=== PATIENT | female | born 1935 | race Caucasian/White ===

== ENCOUNTER 2022-03-31 10:10 | Outpatient (CLI) | payer MEDICARE, OTHER, SELFPAY ==
[2022-03-31 13:39] LABS: Alanine Aminotransferase* 90 U/L (4-35); Alkaline Phosphatase* 93 U/L (40-150); Aspartate Amino Transferase* 56 U/L (12-35); Bilirubin Direct* 0.3 mg/dL (0.0-0.5); Bilirubin Total* 0.4 mg/dL (0.1-1.5); Total Protein* 6.4 g/dL (6.0-8.3)
== END 2022-03-31 10:11 | disposition home or self-care (01) ==
LOC: KYNREF 10:11
PROVIDERS: PCP Nurse Practitioner Family; Visit Provider Nurse Practitioner Family
DX: Z51.81 Encounter for therapeutic drug level monitoring (principal)
CPT/HCPCS: 36415; 80076

== ENCOUNTER 2022-05-06 13:00 | Outpatient (CLI) | payer MEDICARE, OTHER, SELFPAY ==
--- OUTSIDE RECORDS SUMMARY | 2022-05-06 13:05 | XMS_ITS | Encounter Summary ---
:1935 Author Organization [facility] Address [address] [place] [address] Care Team Providers Name Role Phone Dontrell Gallardo MD Primary Care Provider Reason for Visit Reason Onset Date Comments Med Refill 09/05/2021 Encounter Details Date Type Department Care Team Description 09/05/2021 Refill [place] Jelly Kendrick, Allergic rhinitis, [address] unspecified seasonality, [place], [place] [address] unspecified trigger [phone] [place] [address] Social History Tobacco Use Types Packs/Day Years Used Date Never Smoker Smokeless Tobacco: Never Used Alcohol Use Standard Drinks/Week Comments Yes 0 (1 standard drink = 0.6 oz pure alcoho l) Financial Resource Strain Answer Date Recorded How hard is it for you to pay for the very basics like Not h hunter at all 08/10/2020 food, housing, medical care, and heating? Food Insecurity Answer Date Recorded Within the past 12 months, you worried that your food would Never true 08/10/2020 run out before you got money to buy more. Within the past 12 months, the food you bought just didn't N ever true 08/10/2020 last and you didn't have money to get more. Transportation Needs Answer Date Recorded In the past 12 months, has lack of transportation kept you f rom No 08/10/2020 medical appointments or from getting medications? In the past 12 months, has lack of transportation kept you f rom No 08/10/2020 meetings, work, or getting things needed for daily living? Sex Assigned at Date Recorded Not on file documented as of this encounter Miscellaneous Notes Telephone Encounter - Amber Jon RN - 09/05/2021 9:11 AM CST Please review request. SIFIED AD CLERK Telephone Encounter - Tabitha Lombardo LPN - 09/05/2021 9:00 AM CLASSIFIED AD CLERK Last visit in provider department: 03/27/21 Last visit requested medication was discussed: not in the last year Upcoming appointment with provider: Visit date not found Last Rx: 12/05/20 #180 2 refills Requested Prescriptions Pending Prescriptions Disp Refills ? ? fexofenadine-pseudoephedrine (Rochelle-D Allergy & Congestion) 60-120 MG per 12 hr tablet 180tablet 2 Sig: May take ONE tab up to two times a day for nasal congestion as needed Labs: Vitals: BP Readings from Last 2 Encounters: 03/27/21 118/78 02/27/21 128/66 Patient is due for CP appointment. PSR/Nurse: Please contact patient to assist with scheduling. SIFIED AD CLERK documented in this encounter Plan of Treatment Not on filedocumented as of this encounter Visit Diagnoses Diagnosis Allergic rhinitis, unspecified seasonali ty, unspecified trigger documented in this encounter Care Teams Sales Stock Associate Relationship Specialty Start Date End Date Dontrell Gallardo MD PCP - General Family Medicine 01/31/21 [address] [place] [address] documented as of this encounter
--- OUTSIDE RECORDS SUMMARY | 2022-05-06 13:05 | XMS_ITS | Encounter Summary ---
:1935 Author Organization [facility] Address [address] [place] [address] Care Team Providers Name Role Phone None, Pcp Primary Care Provider Unavailable Reason for Referral Consultation (Routine) - Closed Specialty Diagnoses / Procedures Referred By Contact Refer red To Contact Neurology Diagnoses Neuropathy of right lower extremity Prema Mcwilliams APRN, CNP Neurology [address] [place] [address] [place] [address] Fax: Referral ID Status Reason Start Date Expiration Date Visits V isits Requested Authorized [id number] Closed Specialty 11/19/2020 11/19/2021 1 1 Services Required Scheduling Instructions Please call the Neurology [facility] Consultant desk at [phone] to schedule an appointment. GAGE LOAN COUNSELOR Encounter Details Date Type Department Care Team Description 11/15/2020 Telephone [place] Prema Mcwilliams APRN, CNP [address] [place], [place] [address] [place] [address] [phone] (Wo rk) Social History Tobacco Use Types Packs/Day Years [...] Telephone Encounter - Amber Jon RN - 11/19/2020 1:56 PM CST Patient informed. GAGE LOAN COUNSELOR Addendum Note - Prema Mcwilliams APRN, CNP - 11/19/2020 12:02 PM MORTGAGE LOAN COUNSELOR Addended by: PREMA MCWILLIAMS on: 11/19/2020 12:02 PM Modules accepted: Orders GAGE LOAN COUNSELOR Telephone Encounter - Leslie Camilo MD - 11/19/2020 11:58 AM CST Piyush Arciniega, It looks like it's been a few years since she was seen at [facility]. I'd be happy to give things an updated look and see if there is anything else I can add. Just place the consult at your convenience and I'll see her soon!Sincerely, Leslie GAGE LOAN COUNSELOR Telephone Encounter - Amber Jon RN - 11/16/2020 1:41 PM CST Apologies, wrong provider, Prema - the patient would like to know if you'd think this would be beneficial, if so please place Referral. GAGE LOAN COUNSELOR Telephone Encounter - Jelly Kendrick MD - 11/16/2020 1:34 PM CST Call Kathryn and let her know that I would be happy to refer her to one of the neurologist at [facility] for consult and evaluation for her numbness/neuropathy in her leg. If she would like meto do this let me know and I will make the referral. GAGE LOAN COUNSELOR Telephone Encounter - Amber Jon RN - 11/16/2020 1:10 PM CST Patient informed, her abd symptoms aren't bad and she's that for awhile. Her leg pain and numbness is still a concern for her. She feels its mostly the loss of sensation in her feet that worries her. She wonders if it would be beneficial to see a different neurologist possibly at [facility]? GAGE LOAN COUNSELOR Telephone Encounter - Rosa Wells LPN - 11/16/2020 8:59 AM CST [facility] at [phone] GAGE LOAN COUNSELOR Telephone Encounter - Prema Mcwilliams APRN, RECOVERY COACH - 11/15/2020 1:57 PM CST Called patient to discussed recent radiology results from [facility] [place]. Left message to call back. Mammogram: negative. May not need to do further imaging per age recommendation, in future. US liver: fatty liver and small stable cyst seen, gallstones and sludge without cholecystitis. (spleen/pancreas/kidneys overall normal/unchanged). Recommend diet and exercise to help with liver/gallbladder function. staty away from tylenol, liverhurting meds, alcohol etc. We can refer patient to sales correspondent if she likes. Otherwise we have to weigh risk vs benefits at her age; ie if she able to tolerate a gall bladder surgery to get the gall stone out or if she would have more consequences of having a procedure done due to her age. Please see how her Rt leg pain/numbness is doing. Unfortunately [facility] declined the referral. GAGE LOAN COUNSELOR documented in this encounter Plan of Treatment Scheduled Referrals Name Type Priority Associated Order Schedule Diagnoses Ambulatory referral Outpatient Referral Routine Neuropathy of right Ordered: to Neurology lower extremity 11/19/2020 documented as of this encounter Visit Diagnoses Diagnosis Neuropathy of right lower extremity - Pr imary documented in this encounter Care Teams Rod Finisher Relationship Specialty Start Date End Date None, Pcp PCP - General Missionary Coordinator 06/12/20 01/30/21 [address] [place] [address] documented as of this encounter
--- OUTSIDE RECORDS SUMMARY | 2022-05-06 13:05 | XMS_ITS | Clinical Summary ---
:1935 Author Organization [facility] Address [address] [place] [address] Care Team Providers Name Role Phone Dontrell Gallardo MD Primary Care Provider Allergies Active Allergy Reactions Severity Noted Date Comments Gluten Unknown 12/20/2011 H/O Celiac Dise ase Miconazole Nausea And Vomiting 12/10/2013 MICONAZO LE NITRATE Miconazole Nitrate 11/05/2018 Nuts Other (see comments) 10/25/2010 cerner listed no reaction Peanut (Diagnostic) Hives 12/20/2011 Other re action(s): Throat Swelling /Closing Medications Medication Sig Dispensed Refills Start Date End Date Status cycloSPORINE (RESTASIS) Administer 1 0 Active 0.05 % ophthalmic drop into both emulsion eyes 2 (two) times a day ferrous sulfate 325 (65 Take 1 tablet by 0 Active Fe) MG tablet mouth 1 (one) time each day Multiple 0 Active Vitamins-Minerals (MULTIVITAMIN ADULT PO) Cyanocobalamin (VITAMIN Take 1 tablet by 0 Active B 12 PO) mouth 1 (one) time each day calcium citrate-vitamin Take 2 tablets 0 Active D (CITRACAL+D) 315-200 by mouth 1 (one) MG-UNIT per tablet time each day EPINEPHrine (EPIPEN Inject 0.3 mL 0 05/11/2015 Active 2-KRISTIN) 0.3 MG/0.3ML (0.3 mg total) injection into the thigh syringeIndications: if needed for Anaphylaxis anaphylaxis. Call 911 after use. NUT allergy Dorzolamide HCl-Timolol Administer 1 0 10/25/2010 Active Mal PF 22.3-6.8 MG/ML drop into the solution right eye 1 (one) time each day Glaucoma alendronate (FOSAMAX) TAKE 1 TABLET 0 05/28/2020 Active 70 MG tablet EVERY 7 DAYS (WEEKLY) ON AN EMPTY STOMACH, REMAIN UPRIGHT FOR AT LEAST 30 MINUTES meclizine (ANTIVERT) 25 Take 25 mg by 0 01/31/2021 Active MG tablet mouth if needed traMADol (ULTRAM) 50 MG 0 02/23/2021 Active tablet nystatin (MYCOSTATIN) Take one 200 mL 1 03/01/2021 Active 560907 UNIT/ML teaspoon four suspensionIndications: times a day for Thrush up to 10 days for thrush. Swish and the spit out or swallow omeprazole (PriLOSEC) TAKE 1 CAPSULE 90 capsule 1 05/07/[address] DAILY capsuleIndications: Gastroesophageal reflux disease fluticasone (FLONASE) USE 2 SPRAYS 48 g 4 05/23/2021 Active 50 MCG/ACT nasal each Nostril sprayIndications: DAILY Allergic rhinitis, unspecified seasonality, unspecified trigger fexofenadine-pseudoephe May take ONE tab 180 tablet 2 09/05/20 21 Active drine (Rochelle-D up to two times Allergy & Congestion) a day for nasal 60-120 MG per 12 hr congestion as tabletIndications: needed Allergic rhinitis, unspecified seasonality, unspecified trigger Active Problems Problem Noted Date Neuropathy of right lower extremity 11/02/2020 Fungal infection of toenail 11/01/2020 Benign paroxysmal positional vertigo 05/13/2019 Last Assessment & Plan: Formatting of th is note might be different from the original. Continue eply maneuvers at home and otc med. Doing better per patient. 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 Fatty infiltration of the liver. Rheumatoid arthritis 10/25/2010 Overview: Arthritis, rheumatoid* Resolved Problems Problem Noted Date Resolved Date Osteoporosis 07/14/2019 11/01/2020 Immunizations Name Administration Dates Next Due COVID-19, mRNA, LNP-S, PF, 11/15/2020, 10/18/2020 100mcg/0.5mL dose Moderna Flu Vaccine High Dose 65yrs and Older 07/04/2021, 07/02/2021 , 06/13/2020, IM 06/12/2020, 07/15/2019, 07/13/2019, 08/11/2018, 08/10/2018, 08/27/2017, 08/26/2017, 09/23/2016, 07/10/2015 Hepatitis A 07/30/2006, 12/28/2001 Hepatitis B 07/30/2006, 06/29/2006, 01/31/2002, 12/28/2001 Hib (PRP-T) 02/01/2007 Influenza (IM) Preservative Free 08/23/2009, 08/22/2009, 04/2009, 08/20/2009 Influenza TIV (IM) 08/03/2014, 07/26/2014, 08/02/2012 Influenza, Unspecified 09/24/2016, 09/23/2016, 07/12/2015, 07/10/2015, 07/26/2014, 07/05/2013, 07/04/2013, 07/01/2013, 08/02/2012, 07/29/2012, 07/27/2012, 09/25/2011, 06/26/2010 Meningococcal MCV4P 02/01/2007 Meningococcal Polysaccharide 02/01/2007 Pneumococcal Conjugate 13-Valent 07/10/2015 Pneumococcal Polysaccharide 02/01/2007 Td 05/29/2000 Tdap 02/16/2021, 06/17/2011, 11/04/2010 Zoster 10/02/2010 Family History Medical History Relation Comments Celiac disease Brother 1 Down syndrome Brother 1 Glaucoma Father Relation Status Comments Brother 1 Brother 2 Alive Brother 3 Alive Father Mother Sister 1 Alive Sister 2 Alive Son 1 Alive Son 2 Alive Son 3 Alive Social History Tobacco Use Types Packs/Day Years [...] Assigned at Date Recorded Not on file Last Filed Vital Signs Vital Sign Reading Time Taken Comments Blood Pressure 118/78 03/27/2021 8:36 AM CDT Pulse 76 03/27/2021 8:36 AM CDT Temperature 35.8 ??C (96.5 ??F) 03/27/2021 8:36 AM CDT Respiratory Rate 14 03/27/2021 8:36 AM CDT Oxygen Saturation 98% 03/27/2021 8:36 AM CDT Inhaled Oxygen Concentration - - Weight 70.8 kg (156 lb) 03/27/2021 8:36 AM CDT Height 157.5 cm (5' 2.01) 03/27/2021 8:36 AM CDT Body Mass Index 28.53 03/27/2021 8:36 AM CDT Plan of Treatment Health Maintenance Due Date Last Done Comments Fall Risk Performed 08/10/2021 08/10/2020, 04/06/2018 [facility] Annual Wellness 08/10/2021 08/10/2020, 04/06/2018 Glaucoma Screening 67+ Yr 11/12/2021 11/12/2020, 09/14/2019 Mammogram 02/11/2023 02/11/2022, 11/13/2020, 06/27/2019, Additional history exists [facility] Pneumococcal Vaccine: Completed 07/10/2015, 02/01/2007 65+ Years [facility] Pneumococcal Vaccine: Aged Out 07/10/2015, 02/01/2007 No longer eligible <64 based on patient 's age to complete this topic COVID-19 Vaccine Completed 02/12/2022, 07/09/2021, 11/15/2020, Additional history exists HPV Vaccines Aged Out No longer eligib le based on patient 's age to complete this topic Insurance Payer Benefit Plan / Subscriber ID Effective Dates Phone Addre ss Type Group MEDICARE MEDICARE [id number] 2002-Present [address] [address] [place] [address] FOR LIFE [id number] 2002-Present [employer] [facility] [address] Advance Directives For more information, please contact: [phone] Documents on File Type Date Recorded Patient Chainstitch Hemmer Explanati on Advance Directives and Living 06/21/2019 9:35 AM Will Care Teams Tour Escort Relationship Specialty Start Date End Date Dontrell Gallardo MD PCP - General Family Medicine 01/31/[address] [place] [address]
--- OUTSIDE RECORDS SUMMARY | 2022-05-06 13:05 | XMS_ITS | Encounter Summary ---
:1935 Author Organization [facility] Address [address] [place] [address] Care Team Providers Name Role Phone Unavailable Primary Care Provider Unavailable Reason for Visit Reason Onset Date Comments Omeprazole refill 06/04/2020 Encounter Details Date Type Department Care Team Description 06/04/2020 Telephone [place] Jelly Kendrick, Omeprazole refill [address] [place], [place] [address] [address] [place] [phone] [place] [address] (Wo rk) Social History Tobacco Use Types [...] Telephone Encounter - Amber Jon RN - 06/04/2020 11:21 AM CDT Patient aware. Telephone Encounter - Amber Jon RN - 06/04/2020 10:39 AM CDT LMTC Telephone Encounter - Jelly Kendrick MD - 06/04/2020 10:05 AM CDT Let Kathryn know we filled her request for Prilosec with her pharmacy mail order. I don't recall seeingany previous request. Let her know that sometimes the communication between pharmacy and providers doesn't always happen so calling us like she did this time is good to do when needed. Telephone Encounter - Amber Jon RN - 06/04/2020 9:04 AM CDT Please review Rx request. Telephone Encounter - Faviola Ivy - 06/04/2020 8:45 AM CDT Pt called stating she put in for her Omeprazole refill the end of April with [facility] and had not heard it's ready yet. Please call Pt at [phone] to advise. documented in this encounter Plan of Treatment Not on filedocumented as of this encounter Visit Diagnoses Diagnosis Gastroesophageal reflux disease, esophag itis presence not specified documented in this encounter
--- OUTSIDE RECORDS SUMMARY | 2022-05-06 13:05 | XMS_ITS | Encounter Summary ---
:1935 Author Organization [facility] Address [address] [place] [address] Care Team Providers Name Role Phone None, Pcp Primary Care Provider Unavailable Reason for Visit Reason Comments Ear Problem Right Ear Issues Encounter Details Date Type Department Care Team Description 08/10/2020 Office Visit Prasanth Hernandez Jelly Kendrick Acute otitis externa of [address] [place] right ear, unspecified [place], [place] [address] type (Primary Dx) [phone] [place] [address] Social History Tobacco Use Types Packs/Day Years [...] on file documented as of this encounter Last Filed Vital Signs Vital Sign Reading Time Taken Comments Blood Pressure 140/68 08/10/2020 1:29 PM GEOGRAPHIC AREA INTELLIGENCE OFFICER Pulse 87 08/10/2020 1:29 PM GEOGRAPHIC AREA INTELLIGENCE OFFICER Temperature 36.8 ??C (98.2 ??F) 08/10/2020 1:29 PM GEOGRAPHIC AREA INTELLIGENCE OFFICER Respiratory Rate 20 08/10/2020 1:29 PM GEOGRAPHIC AREA INTELLIGENCE OFFICER Oxygen Saturation 97% 08/10/2020 1:29 PM GEOGRAPHIC AREA INTELLIGENCE OFFICER Inhaled Oxygen Concentration - - Weight 71.9 kg (158 lb 8 oz) 08/10/2020 1:29 PM GEOGRAPHIC AREA INTELLIGENCE OFFICER Height 157.6 cm (5' 2.05) 08/10/2020 1:29 PM GEOGRAPHIC AREA INTELLIGENCE OFFICER Body Mass Index 28.95 08/10/2020 1:29 PM GEOGRAPHIC AREA INTELLIGENCE OFFICER documented in this encounter Progress Notes Jelly Kendrick MD - 08/10/2020 1:20 PM CST Estab Patient Visit Subjective Patient ID: Kathryn Leon is a 85 y.o. female. HPI the patient is here today because of an acute swelling of her right ear with some plugging sensation. The patient is our 85-year-old individual who generally speaking does not get ear problems. However she woke yesterday morning with her right ear being swollen a little plugged sensation and was hurting just a little bit for pressure as such she comes in today to have evaluated. She has had no fevers no chills no recent coughs or colds no sore throats no chest congestion she had no injury or the else has happened to that right ear. There is no headache with this Review of Systems Objective Physical Exam she is alert she appears comfortable her vital signs show the following Blood pressure 140/68 pulse 87 temp 98.2 her current weight is 158 pounds and her O2 sats 97% on room air Her left ear is not swollen and is perfectly normal normal tympanic membrane Her right ear is definitively reddened slightly tender to palpation little bit swollen a little harder to put the otoscope into the ear canal because of swelling a little pain and discomfort the actualeardrum appears to be normal Her throat is clear her neck has no adenopathy her sinuses are nontender Her lungs are clear without wheeze rales or rhonchi Cardiac is regular rate and rhythm without heart murmur Assessment/Plan Diagnoses and all orders for this visit: Acute otitis externa of right ear, unspecified type - cephalexin (Keflex) 500 MG capsule; Take 1 capsule (500 mg total) by mouth 3 (three) times a day for 10 days The assessment is acute external otitis of the right ear possibly secondary to a small area of the right lower earlobe that has a little crease in the that could have acted as a vector for possible staph infection. The plan at this time his Keflex 503 times a day for 10 days warm with moist heat when able and callus in 3 days time if she is not improved or she gets worse or call us if she gets a yeast infection. RAPHIC AREA INTELLIGENCE OFFICER documented in this encounter Plan of Treatment Not on filedocumented as of this encounter Visit Diagnoses Diagnosis Acute otitis externa of right ear, unspe cified type - Primary documented in this encounter Care Teams Baffle Mounter Relationship Specialty Start Date End Date None, Pcp PCP - General Hypertrichologist 06/12/20 01/30/21 [address] [place] [address] documented as of this encounter
--- OUTSIDE RECORDS SUMMARY | 2022-05-06 13:05 | XMS_ITS | Encounter Summary ---
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 Wearing longer legged jeans, but able to plant puller wound without disturbing. Patient tripped on concrete approximately 2 weeks prior (02/16), landed on cement block, causing the laceration to left lower extremity. Was seen in ER and numerous times in clinic for assessing and treatment. 1/2 ring shaped wound: 4cm right side, 5cm distal, 3cm left/lateral. Wound is dry, tender to touch, no drainage, edges clean and healing, 1+ pitting edema in ankle area.Patient states swelling reducing. Reports pain around 3/10, which is same as previous reports per patient. 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 Nurse applied bacitracin to wound, covered with 4/4 gauze and wrapped in coban. Patient stated it felt good as has difficult time wrapping. Nurse emphasized wrapping bottom to top (distalto proximal). Patient states does apply it like that,. documented in this encounter Plan of Treatment Not on filedocumented as of this encounter Visit Diagnoses Not on filedocumented in this encounter Care Teams Electrician Machine Shop Relationship Specialty Start Date End Date Dontrell Gallardo MD PCP - General Family Medicine 01/31/[address] [place] [address] documented as of this encounter
--- OUTSIDE RECORDS SUMMARY | 2022-05-06 13:05 | XMS_ITS | Encounter Summary ---
:[address] [facility] Address [address] [place] [address] Care Team Providers Name Role Phone Antonia Aldrich SOCIAL WORK ASSISTANT, SOCIAL WORK SPECIALIST Primary Care Provider [phone] Reason for Visit Reason Onset Date Comments Rochelle D refill 05/07/2020 Encounter Details Date Type Department Care Team Description 05/07/2020 Telephone [place] Antonia Aldrich, Rochelle D refill [address] [place], [place], [place] [address] [address] [facility] [address] [phone] [place], [place] [address] Social History Tobacco Use Types Packs/Day Years [...] this encounter Miscellaneous Notes Telephone Encounter - Miryam Pickering - 05/07/2020 1:17 PM CDT RX faxed. Telephone Encounter - Amber Jon RN - 05/07/2020 1:13 PM CDT Please fax to [facility]. Telephone Encounter - Faviola Ivy - 05/07/2020 11:42 AM CDT Rina with [facility] called stating Pt has previously had her Rochelle D filled by Harman Aldrich through [facility]. Pt then had her Rx refilled at a different facility. Now Pt wants it refilled at [facility] pharmacy again. Even though there are refills left for it, since it's a controlled substance the pharmacy needs a new Rx sent to them - they can't just transfer it. Please call Rina at [phone] with any questions. documented in this encounter Plan of Treatment Not on filedocumented as of this encounter Visit Diagnoses Diagnosis Allergic rhinitis, unspecified seasonali ty, unspecified trigger documented in this encounter Care Teams Legal Associate Relationship Specialty Start Date End Date Antonia Aldrich, SOCIAL WORK ASSISTANT, SOCIAL WORK SPECIALIST PCP - General 04/20/18 05/21/[address] [place] [id number] documented as of this encounter
--- OUTSIDE RECORDS SUMMARY | 2022-05-06 13:05 | XMS_ITS | Encounter Summary ---
:1935 Author Organization [facility] Address [address] [place] [address] Care Team Providers Name Role Phone Dontrell Gallardo MD Primary Care Provider Reason for Visit Reason Onset Date Comments 1 week follow up visit 02/18/2021 Encounter Details Date Type Department Care Team Description 02/18/2021 Telephone [place], 1 week follow up visit [address] [place], [place] [address] [facility] [address] [phone] [place] [address] (Wo rk) Social History Tobacco Use Types [...] Notes Telephone Encounter - Miryam Pickering - 02/18/2021 3:43 PM CDT Patient rescheduled for Thursday. Telephone Encounter - Amber Jon RN - 02/18/2021 3:37 PM CDT Please call patient to set up an appointment based on recommendations. Telephone Encounter - Amber Jon RN - 02/18/2021 11:06 AM CDT Do you have a preference? Telephone Encounter - Faviola Ivy - 02/18/2021 10:47 AM CDT Pt called stating she is going to be out of town next week Thu & Thursday for her 1 week follow up. Pt is wondering if Dr. Gallardo would prefer to see her this week Thursday02/22/21 or next week Thursday02/27/21. Please advise and I will schedule accordingly. documented in this encounter Plan of Treatment Not on filedocumented as of this encounter Visit Diagnoses Not on filedocumented in this encounter Care Teams Kaiawhina Kohanga Reo Relationship Specialty Start Date End Date Dontrell Gallardo MD PCP - General Family Medicine 01/31/[address] [place] [address] documented as of this encounter
--- OUTSIDE RECORDS SUMMARY | 2022-05-06 13:05 | XMS_ITS | Encounter Summary ---
:1935 Author Organization [facility] Address [address] [place] [address] Care Team Providers Name Role Phone None, Pcp Primary Care Provider Unavailable Reason for Referral Consultation (Routine) - Closed Specialty Diagnoses / Procedures Referred By Contact Refer red To Contact Radiology Diagnoses Elevated liver function tests Suze Tolentino APRN, CNP [place] [address] [address] [facility] [address] [place] [address] [place] [address] Phone: Fax: Referral ID Status Reason Start Date Expiration Date Visits Requ ested Visits Authorized [id number] Closed 11/02/2020 11/02/2021 1 1 Scheduling Instructions RUQ Ultrasound. YTICAL SCIENTIST Encounter Details Date Type Department Care Team Description 11/01/2020 Lab [place] Elevated liver function test s (Primary Dx); [address] Benign paroxysmal positional vertigo, unspecified laterality; [place], [place] [address] Right foot pain [phone] Social History Tobacco Use Types Packs/Day Years [...] documented as of this encounter Progress Notes Suze Tolentino APRN, CNP - 11/01/2020 2:15 PM CST Overall labs look good. The ALT liver panel higher than last year's at 127. Last year was 90. Ask about alcohol use this is a big factor. We discussed tylenol use however if she like to use just once aday for pain. Thanks. Encourage decrease alcohol use. Recheck value in 6mons. Order will be placed. YTICAL SCIENTIST Suze Tolentino APRN, CNP - 11/01/2020 2:15 PM CST I can put in RUQ US order as well if patient like. Thanks. YTICAL SCIENTIST Suze Tolentino APRN, CNP - 11/01/2020 2:15 PM CST Ok I will order the US thanks. YTICAL SCIENTIST documented in this encounter Plan of Treatment Scheduled Referrals Name Type Priority Associated Order Schedule Diagnoses Ambulatory External Outpatient Referral Routine Elevated liver Ordered: Referral function tests 11/02/2020 documented as of this encounter Procedures Procedure Name Priority Date/Time Associated Comments Diagnosis GLOMERULAR FILTRATION Routine 11/01/2020 2:06 PM Benign paroxy smal Results for this RATE ANALYTICAL SCIENTIST positional vertigo, procedur e are in unspecified the results laterality section. Right foot pain CBC BRANCH OFFICE Routine 11/01/2020 2:06 PM Right foot pain R esults for this W/DIFF ANALYTICAL SCIENTIST procedure are i n the results section. C-REACTIVE PROTEIN Routine 11/01/2020 2:06 PM Right foot pain Results for this ANALYTICAL SCIENTIST procedure are i n the results section. MAGNESIUM Routine 11/01/2020 2:06 PM Benign paroxysmal Resu lts for this ANALYTICAL SCIENTIST positional vertigo, procedur e are in unspecified the results laterality section. COMPREHENSIVE Routine 11/01/2020 2:06 PM Benign paroxysmal Res ults for this METABOLIC PANEL ANALYTICAL SCIENTIST positional vertigo, proce dure are in unspecified the results laterality section. Right foot pain documented in this encounter Results Glomerular filtration rate (GFR) (11/01/2020 2:06 PM ANALYTICAL SCIENTIST) athologist Signature GFR 60 11/02/2020 [facility] 1:49 PM [facility] >60 11/02/2020 [facility] Lao GFR 1:49 PM [facility] Comment: GFR calculated from serum creatinine v alue Chronic Kidney Disease less than 60 mL/m in/1.73 m2 Kidney Failure less than 15 mL/min/1.73 m2 Note: effective 01/27/07 IDMS-Traceable MDRD Study Equation used. Specimen Anatomical Collection Method Collection Time Receive d Time (Source) Location / / Volume Laterality 11/01/2020 2:06 PM 1 2:06 ANALYTICAL SCIENTIST PM ANALYTICAL SCIENTIST Suze Tolentino APRN, CNP LAB BLOOD ORDERABLES Performing Organization Address City/[facility]/ZIP Code Phon e Number [facility] [address] [place] [id number] Magnesium (11/01/2020 2:06 PM ANALYTICAL SCIENTIST) athologist Signature Magnesium 1.9 1.6 - 2.3 11/02/2020 [facility] mg/dL 1:49 PM [facility] Specimen Anatomical Collection Method Collection Time Receive d Time (Source) Location / / Volume Laterality Blood 11/01/2020 2:06 PM 1 ANALYTICAL SCIENTIST 12:50 PM ANALYTICAL SCIENTIST Suze Tolentino APRN, CNP LAB BLOOD ORDERABLES Performing Organization Address City/[facility]/ZIP Code Phon e Number [facility] [address] [place] [phone] CBC Branch Off w/Diff (11/01/2020 2:06 PM ANALYTICAL SCIENTIST) P athologist Signature WBC 4.4 3.5 - 10.5 11/01/2020 [facility] K/uL 2:15 PM ANALYTICAL SCIENTIST [place] RBC 4.43 3.90 - 11/01/2020 [facility] 5.00 M/uL 2:15 PM ANALYTICAL SCIENTIST [place] Hemoglobin 13.3 12.0 - 11/01/2020 [facility] 15.5 g/dL 2:15 PM ANALYTICAL SCIENTIST [place] Hematocrit 40.0 35.0 - 11/01/2020 [facility] 44.0 % 2:15 PM ANALYTICAL SCIENTIST [place] Platelets 158 150 - 450 11/01/2020 [facility] K/uL 2:15 PM ANALYTICAL SCIENTIST [place] MCV 90.3 81.6 - 11/01/2020 [facility] 98.3 fL 2:15 PM ANALYTICAL SCIENTIST [place] MCH 30.0 26.0 - 11/01/2020 [facility] 32.0 pg 2:15 PM ANALYTICAL SCIENTIST [place] MCHC 33.3 32.0 - 11/01/2020 [facility] 36.0 g/dL 2:15 PM ANALYTICAL SCIENTIST [place] RDW 12.8 11.9 - 11/01/2020 [facility] 15.5 % 2:15 PM ANALYTICAL SCIENTIST [place] Lymphocytes % 31.8 % 11/01/2020 [facility] 2:15 PM ANALYTICAL SCIENTIST [place] Mid-size Cells 12.6 % 11/01/2020 [facility] 2:15 PM ANALYTICAL SCIENTIST [place] Granulocytes/Josefa 55.6 % 11/01/2020 [facility] trophils 2:15 PM ANALYTICAL SCIENTIST [place] Lymphocytes 1.4 0.9 - 2.9 11/01/2020 [facility] Absolute K/uL 2:15 PM ANALYTICAL SCIENTIST [place] MIDS Absolute 0.6 0.4 - 1.5 11/01/2020 [facility] K/uL 2:15 PM ANALYTICAL SCIENTIST [place] Granulocytes/Josefa 2.4 1.7 - 7.0 11/01/2020 [facility] trophils K/uL 2:15 PM ANALYTICAL SCIENTIST [place] Absolute Specimen Anatomical Collection Method Collection Time Receive d Time (Source) Location / / Volume Laterality Blood 11/01/2020 2:06 PM 2:09 ANALYTICAL SCIENTIST PM ANALYTICAL SCIENTIST Suze Tolentino APRN, CNP LAB BLOOD ORDERABLES Performing Organization Address City/State/ZIP Code Phon e Number [facility] NIKHIL HERNANDEZ [address] [place] [address] C-reactive protein (11/01/2020 2:06 PM ANALYTICAL SCIENTIST) P athologist Signature CRP 2.8 0.0 - 4.9 11/02/2020 [facility] mg/L 1:53 PM [facility] Specimen Anatomical Collection Method Collection Time Receive d Time (Source) Location / / Volume Laterality Blood (Blood, 11/01/2020 2:06 PM 11/02/19 21 Venous) ANALYTICAL SCIENTIST 12:50 PM ANALYTICAL SCIENTIST Suze Tolentino APRN, CNP LAB BLOOD ORDERABLES Performing Organization Address City/State/ZIP Code Phon e Number [facility] [address] [place] [address] (ABNORMAL) Comprehensive metabolic panel (11/01/2020 2:06 PM ANALYTICAL SCIENTIST) Patholo gist Method Time Signature Total Protein 7.0 6.3 - 8.2 11/02/2020 [facility] g/dL 1:49 PM [facility] Albumin, Serum 4.1 3.5 - 5.0 11/02/2020 [facility] g/dL 1:49 PM [facility] Total Bilirubin <0.7 0.1 - 1.0 11/02/2020 [facility] mg/dL 1:49 PM [facility] AST 87 (H) 8 - 43 U/L 11/02/2020 [facility] 1:49 PM [facility] Alkaline 72 38 - 128 11/02/2020 [facility] Phosphatase U/L 1:49 PM [facility] ALT (SGPT) 127 (H) 0 - 34 U/L 11/02/2020 [facility] 1:49 PM [facility] Sodium 140 135 - 145 11/02/2020 [facility] mEq/L 1:49 PM [facility] Potassium 3.8 3.5 - 5.1 11/02/2020 [facility] mEq/L 1:49 PM [facility] Chloride 100 98 - 107 11/02/2020 [facility] mEq/L 1:49 PM [facility] CO2 32 (H) 22 - 29 11/02/2020 [facility] mmol/L 1:49 PM [facility] BUN 18 5 - 25 11/02/2020 [facility] mg/dL 1:49 PM [facility] Creatinine 0.9 0.4 - 1.2 11/02/2020 [facility] mg/dL 1:49 PM [facility] Glucose 83 70 - 100 11/02/2020 [facility] mg/dL 1:49 PM [facility] Calcium, Total,S 9.6 8.4 - 10.2 11/02/2020 [facility] mg/dL 1:49 PM [facility] Fasting? No 11/01/2020 [facility] 2:09 PM [facility] Specimen Anatomical Collection Method Collection Time Receive d Time (Source) Location / / Volume Laterality Blood 11/01/2020 2:06 PM ANALYTICAL SCIENTIST 12:50 PM ANALYTICAL SCIENTIST Suze Tolentino APRN, CNP LAB BLOOD ORDERABLES Performing Organization Address City/State/ZIP Code Phon e Number [facility] [address] [place] [address] documented in this encounter Visit Diagnoses Diagnosis Elevated liver function tests - Primary Other abnormal blood chemistry Benign paroxysmal positional vertigo, un specified laterality Right foot pain Pain in soft tissues of limb documented in this encounter Care Teams Rock Loader Relationship Specialty Start Date End Date None, Pcp PCP - General Laundry Helper 06/12/20 01/30/21 [address] [place] [address] documented as of this encounter
--- OUTSIDE RECORDS SUMMARY | 2022-05-06 13:05 | XMS_ITS | Encounter Summary ---
:1935 Author Organization [facility] Address [address] [place] [address] Care Team Providers Name Role Phone Unavailable Primary Care Provider Unavailable Reason for Visit Reason Onset Date Comments Omeprazole return call 06/04/2020 Encounter Details Date Type Department Care Team Description 06/04/2020 Telephone Prasanth Hernandez Jelly Kendrick Omeprazole return call [address] MD [place], [place] [address] [facility] [address] [phone] [place] [address] Social History Tobacco Use Types Packs/Day Years [...] Jon RN - 06/04/2020 11:21 AM CDT Noted. Telephone Encounter - Faviola Ivy - 06/04/2020 11:15 AM CDT Pt returned call to clinic. Nurse was rooming a Pt. Dr. Kendrick's message that it was refilled was relayed. Pt was appreciative. documented in this encounter Plan of Treatment Not on filedocumented as of this encounter Visit Diagnoses Not on filedocumented in this encounter
--- OUTSIDE RECORDS SUMMARY | 2022-05-06 13:05 | XMS_ITS | Encounter Summary ---
:1935 Author Organization [facility] Address [address] [place] [address] Care Team Providers Name Role Phone None, Pcp Primary Care Provider Unavailable Reason for Referral Consultation (Routine) - Closed Specialty Diagnoses / Procedures Referred By Contact Refer red To Contact Neurology Diagnoses Neuropathy of right lower extremity Suze Tolentino APRN, CNP [place] - Referrals [address] [place] [address] [place] [address] Fax: Referral ID Status Reason Start Date Expiration Date Visits Requ ested Visits Authorized [id number] Closed 11/02/2020 11/02/2021 1 1 Scheduling Instructions Was seen at [facility] in the past. L CANOE INSPECTOR Reason for Visit Reason Comments Check ears Encounter Details Date Type Department Care Team Description 11/01/2020 Office Visit Prasanth Hernandez Suze Tolentino, Right ear pain (Primary Dx); [address] [place] Benign paroxysmal positional vertigo, un specified laterality; VAUGHN Mitchell [address] Fungal infection of toenail; [phone] [place], [place] Neuropathy of right lower extremity [id number] Social History Tobacco Use Types Packs/Day Years [...] Sign Reading Time Taken Comments Blood Pressure 130/90 11/01/2020 1:03 PM FINAL CANOE INSPECTOR Pulse 84 11/01/2020 1:03 PM FINAL CANOE INSPECTOR Temperature 36.3 ??C (97.3 ??F) 11/01/2020 1:03 PM FINAL CANOE INSPECTOR Respiratory Rate 12 11/01/2020 1:03 PM FINAL CANOE INSPECTOR Oxygen Saturation 97% 11/01/2020 1:03 PM FINAL CANOE INSPECTOR Inhaled Oxygen Concentration - - Weight 71.7 kg (158 lb) 11/01/2020 1:03 PM FINAL CANOE INSPECTOR Height 157.6 cm (5' 2.05) 11/01/2020 1:03 PM FINAL CANOE INSPECTOR Body Mass Index 28.85 11/01/2020 1:03 PM FINAL CANOE INSPECTOR documented in this encounter Patient Instructions Patient InstructionsTmaritza Tolentino APRN, SUPERVISOR [employer] - 11/01/2020 1:00 PM CST Took dramamine and did eply exercises for dizziness seem to help. Fluids/to not make sure dehydrated. Check labs today Try the otc fungal topical for toenails for per box. Try to decrease use of the elzbieta D, and just use plain elzbieta. Steam. If you can use tylenol 500mg, 2 tabs every 6hrs. Ice/heat the rt hip. If leg/hip pain worsen let us know, we can have you see [facility] again. L CANOE INSPECTOR documented in this encounter Progress Notes Suze Tolentino APRN, CNP - 11/01/2020 1:00 PM CST Subjective Patient ID: Kathryn Leon is a 85 y.o. female. Chief Complaint Patient presents with ??? Check ears HPI Patient presents to the [facility] to get her ears checked and complete lab work. She have not been seen by PCP for about a year. She currently has some vertigo that started last night. There was no exacerbation factors that she knows of. She denies any recent illness or cold symptoms. 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 She also took some Dram amine [id number]-[id number] which overall have been helping. Patient is a history of recurrent chronic sinusitis but have been using Flonase nasal spray and Elzbieta-D for more than 5 years daily. She states this helps her recurrent sinusitis. In the past she has history of fungal toenail infection and inquired about an oral medication and also liver panel. Patient have not tried any topical lavf-[id number]-[id number] products. 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 She was seen at [facility] and had surgical repair a few years ago. Recently she feels that the numbness is worse, without weakness. Her righttoes are always noticed to be red per patient. She has a history of gout not on allopurinol, 2-3 episodes in her lifetime. Describes the right footpain today as not severe as her gout exacerbation in the past. The following portions of the patient's chart were reviewed in this encounter and updated as appropriate: Tobacco Allergies Meds Med Hx Surg Hx Fam Hx Current Outpatient Medications: ??? alendronate (FOSAMAX) 70 MG tablet, TAKE 1 TABLET EVERY 7 DAYS (WEEKLY) ON AN EMPTY STOMACH, REMAIN UPRIGHT FOR AT LEAST 30 MINUTES, Disp: , Rfl: ??? calcium citrate-vitamin D (CITRACAL+D) 315-200 MG-UNIT per tablet, Take 2 tablets by mouth 1 (one) time each day, Disp: , Rfl: ??? cholecalciferol (VITAMIN D-3) 10 MCG (400 UNIT) tablet, Take 400 Units by mouth 1 (one) time each day, Disp: , Rfl: ??? Cyanocobalamin (VITAMIN B 12 PO), Take 1 tablet by mouth 1 (one) time each day, Disp: , Rfl: ??? cycloSPORINE (RESTASIS) 0.05 % ophthalmic emulsion, Administer 1 drop into both eyes 2 (two) times a day , Disp: , Rfl: ??? Dorzolamide HCl-Timolol Mal PF 22.3-6.8 MG/ML solution, Administer 1 drop into the right eye 1 (one) time each day Glaucoma, Disp: , Rfl: ??? ferrous sulfate 325 (65 Fe) MG tablet, Take 1 tablet by mouth 1 (one) time each day, Disp: , Rfl: ? ? fexofenadine-pseudoephedrine (Elzbieta-D Allergy & Congestion) 60-120 MG per 12 hr tablet, May take ONE tab up to two times a day for nasal congestion as needed, Disp: 180 tablet, Rfl: 1 ??? fluticasone (FLONASE) 50 MCG/ACT nasal spray, USE 2 SPRAYS NASALLY DAILY, Disp: 48 g, Rfl: 4 ??? Multiple Vitamins-Minerals (MULTIVITAMIN ADULT PO), , Disp: , Rfl: ??? omeprazole (PriLOSEC) [address] capsule, Take 1 capsule (40 mg total) by mouth 1 (one) time each day, Disp: 90 capsule, Rfl: 3 ??? UNABLE TO FIND, Med Name: ZINC during COVID, Disp: , Rfl: ??? EPINEPHrine (EPIPEN 2-KRISTIN) 0.3 MG/0.3ML injection syringe, Inject 0.3 mL (0.3 mg total) into thethigh if needed for anaphylaxis. Call 911 after use. NUT allergy, Disp: , Rfl: Allergies Allergen Reactions ??? Gluten Unknown H/O Celiac Disease ??? Miconazole Nausea And Vomiting MICONAZOLE NITRATE ??? Miconazole Nitrate ??? Nuts Other (see comments) deepaner listed no reaction ??? Peanut (Diagnostic) Hives Other reaction(s): Throat Swelling/Closing Review of Systems Constitutional: Negative for chills, diaphoresis and fever. HENT: Positive for ear pain. Negative for postnasal drip, rhinorrhea and sneezing. Respiratory: Negative for shortness of breath. Gastrointestinal: Negative for abdominal pain, diarrhea and vomiting. Neurological: Positive for dizziness and numbness. Negative for weakness and headaches. Objective Blood pressure 130/90, pulse 84, temperature 36.3 ??C (97.3 ??F), temperature source Temporal, resp.rate 12, height 1.576 m (5' 2.05), weight 71.7 kg (158 lb), SpO2 97 %. Physical Exam General: Alert and oriented elderly female in no acute distress, very pleasant. Eye: Bilateral eyes are red especially on the right, clear drainage at right eye. Recent eye infection per patient had completed her antibiotic eye ointment. pearrl. Nose: Turbinates are nonedematous no drainage visualized. Throat: Oropharynx is clear Ears: The right ear canal appears to be slightly more narrow than the left. Rt TM normal. There is no external auricle pain or lymphadenopathy noted surrounding the auricle. There is no rash. The left TM is clear and no abnormal findings at the left ear. Lungs: Clear to auscultation bilaterally Heart: Regular rhythm, S1-S2 Musculoskeletal: Patient got up from sitting position to standing swiftly without restrictions or pain. Subjective tenderness with palpation of the right hip bursa no pain with right gluteal notch. Foot: All digits of the right foot appears erythematous with mild edema. Tender to touch, not warm. Blanchable. No rash. Per patient the discoloration has been there for many years. Sensations intact. No foot drop or limp. Toenails appears normal. Assessment/Plan Problem List Items Addressed This Visit Nervous Benign paroxysmal positional vertigo Current Assessment & Plan Continue eply maneuvers at home and otc med. Doing better per patient. Relevant Orders Magnesium Comprehensive metabolic panel Neuropathy of right lower extremity Relevant Orders CBC Branch Off w/Diff (Completed) C-reactive protein Comprehensive metabolic panel Ambulatory External Referral Musculoskeletal Fungal infection of toenail Other Visit Diagnoses Right ear pain - Primary Patient states she will call if her toe pain worsens as we discussed possibility of gout however without symptoms of pain with even light touch and not similar to her previous gout presentation we willcontinue to monitor. Called to let patient know I put in referral to [facility]. Ask that nursing staff assist with calling of lab results once finalized. Patient Instructions Took dramamine and did eply exercises for dizziness seem to help. Fluids/to not make sure dehydrated. Check labs today Try the otc fungal topical for toenails for per box. Try to decrease use of the elzbieta D, and just use plain elzbieta. Steam. If you can use tylenol 500mg, 2 tabs every 6hrs. Ice/heat the rt hip. If leg/hip pain worsen let us know, we can have you see [facility] again. L CANOE INSPECTOR documented in this encounter Miscellaneous Notes Assessment & Plan Note - Suze Tolentino APRN, CNP - 11/02/2020 11:30 AM FINAL CANOE INSPECTOR Associated Problem(s): Benign paroxysmal positional vertigo Continue eply maneuvers at home and otc med. Doing better per patient. L CANOE INSPECTOR documented in this encounter Plan of Treatment Scheduled Referrals Name Type Priority Associated Order Schedule Diagnoses Ambulatory External Outpatient Referral Routine Neuropathy of right Ordered: Referral lower extremity 11/02/2020 documented as of this encounter Results (ABNORMAL) Comprehensive metabolic panel (11/01/2020 2:06 PM FINAL CANOE INSPECTOR) [facility] Time Signature Total Protein 7.0 6.3 - 8.2 11/02/2020 [facility] g/dL 1:49 PM [facility] Albumin, Serum 4.1 3.5 - 5.0 11/02/2020 [facility] g/dL 1:49 PM [facility] Total Bilirubin <0.7 0.1 - 1.0 11/02/2020 [facility] mg/dL 1:49 PM [facility] AST 87 (H) 8 - 43 U/L 11/02/2020 [facility] 1:49 PM [facility] Alkaline 72 38 - 128 11/02/2020 [facility] Phosphatase U/L 1:49 PM [facility] ALT (SGPT) 127 (H) 0 - 34 U/L 11/02/2020 [facility] 1:49 PM [facility] Sodium 140 135 - 145 11/02/2020 [facility] mEq/L 1:49 PM [facility] Potassium 3.8 3.5 - 5.1 11/02/2020 [facility] mEq/L 1:49 PM [facility] Chloride 100 98 - 107 11/02/2020 [facility] mEq/L 1:49 PM [facility] CO2 32 (H) 22 - 29 11/02/2020 [facility] mmol/L 1:49 PM [facility] BUN 18 5 - 25 11/02/2020 [facility] mg/dL 1:49 PM [facility] Creatinine 0.9 0.4 - 1.2 11/02/2020 [facility] mg/dL 1:49 PM [facility] Glucose 83 70 - 100 11/02/2020 [facility] mg/dL 1:49 PM [facility] Calcium, Total,S 9.6 8.4 - 10.2 11/02/2020 [facility] mg/dL 1:49 PM [facility] Fasting? No 11/01/2020 [facility] 2:09 PM [facility] Specimen Anatomical Collection Method Collection Time Receive d Time (Source) Location / / Volume Laterality Blood 11/01/2020 2:06 PM FINAL CANOE INSPECTOR 12:50 PM FINAL CANOE INSPECTOR Suze Tolentino APRN, CNP LAB BLOOD ORDERABLES Performing Organization Address City/[facility]/ZIP Code [facility] [address] [place] [id number] C-reactive protein (11/01/2020 2:06 PM FINAL CANOE INSPECTOR) athologist Signature CRP 2.8 0.0 - 4.9 11/02/2020 [facility] mg/L 1:53 PM [facility] Specimen Anatomical Collection Method Collection Time Receive d Time (Source) Location / / Volume Laterality Blood (Blood, 11/01/2020 2:06 PM 11/02/19 21 Venous) FINAL CANOE INSPECTOR 12:50 PM FINAL CANOE INSPECTOR Suze Tolentino APRN, CNP LAB BLOOD ORDERABLES Performing Organization Address City/[facility] Code Phon e Number [facility] [address] [place] [id number] CBC Branch Off w/Diff (11/01/2020 2:06 PM FINAL CANOE INSPECTOR) athologist Signature WBC 4.4 3.5 - 10.5 11/01/2020 [facility] K/uL 2:15 PM FINAL CANOE INSPECTOR [place] RBC 4.43 3.90 - 11/01/2020 [facility] [place] 5.00 M/uL 2:15 PM FINAL CANOE INSPECTOR [place] Hemoglobin 13.3 12.0 - 11/01/2020 [facility] [place] 15.5 g/dL 2:15 PM FINAL CANOE INSPECTOR [place] Hematocrit 40.0 35.0 - 11/01/2020 [facility] [place] 44.0 % 2:15 PM FINAL CANOE INSPECTOR [place] Platelets 158 150 - 450 11/01/2020 [facility] [place] K/uL 2:15 PM FINAL CANOE INSPECTOR [place] MCV 90.3 81.6 - 11/01/2020 [facility] [place] 98.3 fL 2:15 PM FINAL CANOE INSPECTOR [place] MCH 30.0 26.0 - 11/01/2020 [facility] [place] 32.0 pg 2:15 PM FINAL CANOE INSPECTOR [place] MCHC 33.3 32.0 - 11/01/2020 [facility] [place] 36.0 g/dL 2:15 PM FINAL CANOE INSPECTOR [place] RDW 12.8 11.9 - 11/01/2020 [facility] [place] 15.5 % 2:15 PM FINAL CANOE INSPECTOR [place] Lymphocytes % 31.8 % 11/01/2020 [facility] [place] 2:15 PM FINAL CANOE INSPECTOR [place] Mid-size Cells 12.6 % 11/01/2020 [facility] 2:15 PM FINAL CANOE INSPECTOR [place] Granulocytes/Josefa 55.6 % 11/01/2020 [facility] [place] trophils 2:15 PM FINAL CANOE INSPECTOR [place] Lymphocytes 1.4 0.9 - 2.9 11/01/2020 [facility] Absolute K/uL 2:15 PM FINAL CANOE INSPECTOR [place] MIDS Absolute 0.6 0.4 - 1.5 11/01/2020 [facility] K/uL 2:15 PM FINAL CANOE INSPECTOR [place] Granulocytes/Josefa 2.4 1.7 - 7.0 11/01/2020 [facility] trophils K/uL 2:15 PM FINAL CANOE INSPECTOR [place] Absolute Specimen Anatomical Collection Method Collection Time Receive d Time (Source) Location / / Volume Laterality Blood 11/01/2020 2:06 PM 2:09 FINAL CANOE INSPECTOR PM FINAL CANOE INSPECTOR Suze Tolentino PROCUREMENT CONSULTANT, SUPERVISOR [employer] LAB BLOOD ORDERABLES Performing Organization Address City/State/ZIP Code Phon e Number [facility] [place] [address] [place] [address] Magnesium (11/01/2020 2:06 PM FINAL CANOE INSPECTOR) P athologist Signature Magnesium 1.9 1.6 - 2.3 11/02/2020 [facility] mg/dL 1:49 PM FINAL CANOE INSPECTOR CENTER LABOR[facility] Specimen Anatomical Collection Method Collection Time Receive d Time (Source) Location / / Volume Laterality Blood 11/01/2020 2:06 PM FINAL CANOE INSPECTOR 12:50 PM FINAL CANOE INSPECTOR Suze Tolentino APRN, SUPERVISOR [employer] LAB BLOOD ORDERABLES Performing Organization Address City/State/ZIP Code Phon e Number [facility] [address] [place] [address] documented in this encounter Visit Diagnoses Diagnosis Right ear pain - Primary Unspecified otalgia Benign paroxysmal positional vertigo, un specified laterality Fungal infection of toenail Neuropathy of right lower extremity documented in this encounter Care Teams Electronics Detail Draftsperson Relationship Specialty Start Date End Date None, Pcp PCP - General Amusement Park Entertainer 06/12/20 01/30/21 [address] [place] [address] documented as of this encounter
--- OUTSIDE RECORDS SUMMARY | 2022-05-06 13:05 | XMS_ITS | Encounter Summary ---
:[address] [facility] Address [address] [place] [address] Care Team Providers Name Role Phone Dontrell Gallardo MD Primary Care Provider Reason for Visit Reason Comments Follow-up Left leg Encounter Details Date Type Department Care Team Description 02/27/2021 Office Visit [place] Jelly Kendrick Skin infection (Primary [address] MD Jordan Dx) [place], [place] [address] [address] [place] [phone] Social History Tobacco Use Types Packs/Day Years [...] Sign Reading Time Taken Comments Blood Pressure 128/66 02/27/2021 2:02 PM CDT Pulse 86 02/27/2021 2:02 PM CDT Temperature 36 ??C (96.8 ??F) 02/27/2021 2:02 PM CDT Respiratory Rate 16 02/27/2021 2:02 PM CDT Oxygen Saturation 94% 02/27/2021 2:02 PM CDT Inhaled Oxygen Concentration - - Weight 72.1 kg (159 lb) 02/27/2021 2:02 PM CDT Height 157.5 cm (5' 2.01) 02/27/2021 2:02 PM CDT Body Mass Index 29.07 02/27/2021 2:02 PM CDT documented in this encounter Progress Notes Jelly Kendrick MD - 02/27/2021 2:00 PM CDT Estab Patient Visit Subjective Patient ID: Kathryn Leon is a 86 y.o. female. HPI the patient is here today for follow-up of wound infection. The patient injured her leg about 10 days or so ago she had Steri-Strips placed at the local emergency room. She was seen in the office now on a couple occasions and on the second occasion we did remove one Steri-Strip and there was an area that revealed that she was having a little thickening puslikedrainage and some increased erythema surrounding the wound as such we did a culture and placed her on Septra twice a day. She comes back for recheck stating that she feels the leg is doing a little bit better less drainageless redness and so forth. Should been on the culture was growing a beta-hemolytic strep which is universally sensitive to penicillin and other antibiotics. Review of Systems Objective Physical Exam she is alert she appears comfortable her vital signs are stable current temp 96.8 Her wound does appear to be better at the level of erythema is about 50% improved there is no further drainage though there is still a little area of the appears to be just a little bit infected but certainly improved there is decreased tenderness decreased swelling though there is still swelling in the ankle and foot area. Assessment/Plan Diagnoses and all orders for this visit: Skin infection - sulfamethoxazole-trimethoprim (Bactrim DS) 800-160 MG per tablet; Take ONE tab TWICE a day for an additional 3 days for skin infection The overall assessment is follow-up of local skin infection secondary to an injury and the plan at this time is to extend her antibiotics for a full complete 10 days if she does not continue to improveor something changes then we would switch her to a penicillin drug at that time. No further checkupsare required unless she has any questions or concerns. documented in this encounter Plan of Treatment Not on filedocumented as of this encounter Visit Diagnoses Diagnosis Skin infection - Primary Unspecified local infection of skin and subcutaneous tissue documented in this encounter Care Teams Jet Aircraft Servicer Relationship Specialty Start Date End Date Dontrell Gallardo MD PCP - General Family Medicine 01/31/21 [address] [place] [address] documented as of this encounter
--- OUTSIDE RECORDS SUMMARY | 2022-05-06 13:05 | XMS_ITS | Encounter Summary ---
:1935 Author Organization [employer] Address [address] [place] [address] Care Team Providers Name Role Phone None, Pcp Primary Care Provider Unavailable Encounter Details Date Type Department Care Team Description 12/04/2020 Lab SE Lab Polyneuropathy [address] [place], [place] [id number] Social History Tobacco Use Types Packs/Day Years [...] on file documented as of this encounter Plan of Treatment Not on filedocumented as of this encounter Procedures Procedure Name Priority Date/Time Associated Diagnosis Comme nts MONOCLONAL PROTEIN Routine 12/04/2020 3:59 PM Polyneuropathy R esults for this STUDY, SERUM CDT procedure are i n the results section. HEMOGLOBIN A1C Routine 12/04/2020 3:59 PM Polyneuropathy Resul ts for this CDT procedure are i n the results section. VITAMIN B12 Routine 12/04/2020 3:59 PM Polyneuropathy Results for this CDT procedure are i n the results section. documented in this encounter Results Hemoglobin A1c (12/04/2020 3:59 PM CDT) athologist Signature Hemoglobin A1C 5.4 4.0 - 5.6 12/04/2020 [facility] L % A1C 5:26 PM CDT [facility] Comment: Reference Range 4.0-5.6% is for non-preg nant adults >=18 yrs <5.6% ? Non-Diabetic 5.7-6.4% ??Increased risk of Diabetes >=6.5% ?Indicative of Diabetes <7.0% ? ADA goal for glycemic contro l Methodology may not detect all hemoglobi n variants which can affect A1c results. Method certified by National Glycohemoglobin Standardization Program. Specimen Anatomical Collection Method Collection Time Receive d Time (Source) Location / / Volume Laterality Blood (Blood, 12/04/2020 3:59 PM 12/05/19 21 5:04 Venous) CDT PM CDT Uziel Turpin MD LAB BLOOD ORDERABLES Performing Organization Address City/State/ZIP Code Phon e Number [facility] [address] [place] [address] Vitamin B12 (12/04/2020 3:59 PM CDT) athologist Signature Vitamin B-12 [phone] 112 12/04/2020 [facility] pg/mL 6:10 PM CDT [facility] Comment: The results from this or any other diagn ostic test should be used and interpreted only in the context of the overall clinical picture. Biotin levels in serum remain elevated f or up to 24 hours after oral or intravenous biotin adminis tration and may interfere with this assay to produce unr eliable results. Exposure to animal antigens, either in t he environment or as part of treatment or imaging procedur es, may have circulating anti-animal antibodies prese nt. These antibodies may interfere with the assay reagents to produce unreliable results. Specimen Anatomical Collection Method Collection Time Receive d Time (Source) Location / / Volume Laterality Blood (Blood, 12/04/2020 3:59 PM 12/05/19 21 5:04 Venous) CDT PM CDT Uziel Turpin MD LAB BLOOD ORDERABLES Performing Organization Address City/State/ZIP Code Phon e Number [facility] [address] [place] [address] (ABNORMAL) Monoclonal protein study, serum (12/04/2020 3:59 PM CDT) [facility] Method Time Signature Protein, Total 6.0 (L) 6.3 - 7.9 12/06/2020 [facility] g/dL 9:37 AM CDT LABORATORIES Albumin, Serum 3.1 (L) 3.4 - 4.7 12/06/2020 [facility] g/dL 9:37 AM CDT LABORATORIES Bhhet-4-Nmvgsro 0.3 0.1 - 0.3 12/06/2020 [facility] n g/dL 9:37 AM CDT LABORATORIES Sttab-3-Rhlxirj 0.9 0.6 - 1.0 12/06/2020 [facility] n g/dL 9:37 AM CDT LABORATORIES Beta Globulin 0.9 0.7 - 1.2 12/06/2020 [facility] g/dL 9:37 AM CDT LABORATORIES Gamma Globulin 0.9 0.6 - 1.6 12/06/2020 [facility] g/dL 9:37 AM CDT LABORATORIES A/G Ratio 1.08 12/06/2020 [facility] 9:37 AM CDT LABORATORIES Impression - 12/06/2020 [facility] 9:37 AM CDT LABORATORIES Comment: No apparent monoclonal protein on serum electrophoresis. See Isotype. M-Protein Isotype SEE BELOW 12/06/2020 9:37 AM CDT [facility] Comment: No monoclonal protein detected. ADDITIONAL INFORMATIO N The submitted sample was assayed by five separate immunopurifications for IgG, IgA, IgM, k appa and lambda. The result reflects the findings of eith er no monoclonal protein detected or those monoclonal imm unoglobulins that were detected. This test was developed and its performa nce characteristics determined by [facility] in a manner co nsistent with CLIA requirements. This test has not been garth ared or approved by the U.S. Food and Drug Administration. Flag, M-Protein Negative Negative 12/06/2020 9:37 AM [facility] Isotype CDT LABORATORIES Comment: Test Performed by: [facility] [address] [place], [place] [address] Market Survey Representative: Mark Pittman M.D. Ph. D.; CLIA# [id number] Therapeutic Antibody Not Provided 12/06/2020 9:37 AM [facility] Administered? 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
--- OUTSIDE RECORDS SUMMARY | 2022-05-06 13:05 | XMS_ITS | Encounter Summary ---
:1935 Author Organization [facility] Address [address] [place] [address] Care Team Providers Name Role Phone Dontrell Gallardo MD Primary Care Provider Encounter Details Date Type Department Care Team Description 03/05/2021 [place] MD [address] [place], [place] [address] [place], [place] [phone] (Wo rk) Social History Tobacco Use Types [...] this encounter Miscellaneous Notes Telephone Encounter - Dontrell Gallardo MD - 03/05/2021 8:48 AM CDT Called patient to remind her of MRI. MRI Brain [facility] IMPRESSION: 1. Small focus diffusion signal change with associated gadolinium enhancement located within the the subcortical white matter of the inferior left parietal lobe. Differential considerations include a small subacute infarct versus a small metastasis. If clinically indicated, a follow-up MRI in 6-8 weeks would be helpful to confirm expected evolution of infarction and exclude an underlying lesion. 2. No additional acute intracranial findings are identified. Generalized atrophy of the brain. 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 Date: 01/30/21 She has an MRI for follow up lesion scheduled for March 21 at [facility] in [place]. She also is wondering about why she has not heard from ENT about appointment follow up which she wasrecommended to by another provider at visit on 02/12/2021 for her hospital follow up for vertigo. Advised that she contact that provider Alfonso Eisenberg at [facility] to inquire which ENT physician he was referring to. documented in this encounter Plan of Treatment Not on filedocumented as of this encounter Visit Diagnoses Not on filedocumented in this encounter Care Teams Child Development Consultant Relationship Specialty Start Date End Date Dontrell Gallardo MD PCP - General Family Medicine 01/31/[address] [place] [address] documented as of this encounter
--- OUTSIDE RECORDS SUMMARY | 2022-05-06 13:05 | XMS_ITS | Encounter Summary ---
:1935 Author Organization [facility] Address [address] [place] [address] Care Team Providers Name Role Phone None, Pcp Primary Care Provider Unavailable Reason for Visit Reason Comments Immunizations Flu Encounter Details Date Type Department Care Team Description 06/13/2020 Immunization Nikhil Hernandez Immunization due (Primary [address] Dx) [place] [address] Social History Tobacco Use Types [...] as of this encounter Visit Diagnoses Diagnosis Immunization due - Primary documented in this encounter Care Teams Loop Tacker Relationship Specialty Start Date End Date None, Pcp PCP - General Railroad Car Repairman 06/12/20 01/30/21 [address] [place] [address] documented as of this encounter
--- OUTSIDE RECORDS SUMMARY | 2022-05-06 13:05 | XMS_ITS | Encounter Summary ---
:1935 Author Organization [facility] Address [address] [place] [address] Care Team Providers Name Role Phone Dontrell Gallardo MD Primary Care Provider Encounter Details Date Type Department Care Team Description 02/18/2021 Ancillary Procedure Prasanth Hernandez Radiolo gy [address] [place], [place] [address] Social History Tobacco Use [...] Name Priority Date/Time Associated Diagnosis Comme nts XR FINGER THUMB Routine 02/18/2021 9:37 AM Thumb injury, Resul ts for this RIGHT CDT initial encounter procedure are in the results section. documented in this encounter Results X-ray finger thumb right (02/18/2021 9:37 AM CDT) Anatomical Region Laterality Modality Upper Extremities, Fingers Radiographic Imaging Specimen (Source) Anatomical Collection Method Collection Time Re ceived Time Location / / Volume Laterality 02/18/2021 9:37 AM CDT Impressions 02/18/2021 12:49 PM CDT IMPRESSION: Acute, nondisplaced fracture of the 1st distal phalanx. Narrative 02/18/2021 12:49 PM CDT INDICATION: fall 6/5 r/o fracture COMPARISON: None available. FINDINGS: Three views. ??There is an acute, nondis placed oblique fracture involving the 1st distal phalanx. ??No definite in tra-articular extension. ??Overlying soft tissue swelling is present. ??There are moderate-severe degenerative changes involving the 1st carpometacarpa l and 1st interphalangeal joints. ?? Mild-moderate degenerative changes of th e 1st MCP joint. Procedure Note Juan Villa MD - 02/18/2021Form atting of this note might be different from the original. INDICATION: fall 6/5 r/o fracture COMPARISON: None available. FINDINGS: Three views. There is an acute, nondispl aced oblique fracture involving the 1st distal phalanx. No definite intr a-articular extension. Overlying soft tissue swelling is present. There a re moderate-severe degenerative changes involving the 1st carpometacarpa l and 1st interphalangeal joints. Mild-moderate degenerative changes of th e 1st MCP joint. IMPRESSION: Acute, nondisplaced fracture of the 1st distal phalanx. Dontrell Gallardo MD IMG XR PROCEDURES documented in this encounter Visit Diagnoses Not on filedocumented in this encounter Care Teams Bottled Beverage Inspector Relationship Specialty Start Date End Date Dontrell Gallardo MD PCP - General Family Medicine 01/31/[address] [place] [address] documented as of this encounter
--- OUTSIDE RECORDS SUMMARY | 2022-05-06 13:05 | XMS_ITS | Encounter Summary ---
:1935 Author Organization [facility] Address [address] [place] [address] Care Team Providers Name Role Phone Dontrell Gallardo MD Primary Care Provider Reason for Visit Reason Comments Follow-up Encounter Details Date Type Department Care Team Description 02/22/2021 Office Visit Prasanth Hernandez Dontrell Gallardo, Closed nondisplaced fracture of distal phalanx of right thumb with routine healing, subsequent encounter (Primary Dx); [address] Laceration of left lower extremity, subs equent encounter [place] [address] [place] [address] [place] [phone] Social History Tobacco Use Types Packs/Day Years [...] Sign Reading Time Taken Comments Blood Pressure 134/80 02/22/2021 10:04 AM CDT Pulse 72 02/22/2021 10:04 AM CDT Temperature 37 ??C (98.6 ??F) 02/22/2021 10:04 AM CDT Respiratory Rate 20 02/22/2021 10:04 AM CDT Oxygen Saturation 98% 02/22/2021 10:04 AM CDT Inhaled Oxygen Concentration - - Weight 71.8 kg (158 lb 6.4 oz) 02/22/2021 10:04 AM CDT Height 157.5 cm (5' 2) 02/22/2021 10:04 AM CDT Body Mass Index 28.97 02/22/2021 10:04 AM CDT documented in this encounter Progress Notes Dontrell Gallardo MD - 02/22/2021 10:20 AM CDT Subjective Patient ID: Kathryn Leon is a 85 y.o. female. Chief Complaint Patient presents with ??? Follow-up HPI Patient is 6 days since injury. Last seen by me in clinic on 02/18/2021 after ED visit on 02/16/2021. Doing well. Here for wound check and check splint. Thumb feels good and is not tender. Leg still feels tender but getting up and around on it fine. Is basically just sore to the touch. The following portions of the patient's chart were reviewed in this encounter and updated as appropriate: Tobacco Allergies Meds Med Hx Surg Hx Fam Hx Soc Hx ROS ROS done as noted in HPI Objective Visit Vitals BP 134/80 (BP Location: Left arm, Patient Position: Sitting, BP Cuff Size: Large adult) Pulse 72 Temp 37 ??C (98.6 ??F) (Temporal) Resp 20 Ht 1.575 m (5' 2) Wt 71.8 kg (158 lb 6.4 oz) SpO2 98% BMI 28.97 kg/m?? Smoking Status Never Smoker BSA 1.77 m?? Physical Exam GEN: well appearing, no acute distress, vital signs reviewed DERM: left lower extremity with laceration still supported with steri-strips, no erythema about the wound edges and no discharge. There is tenderness in the leg around this wound. MSK: right thumb in splint has full ROM, no tenderness to distal phalanx of thumb NEURO: sensation intact to LLE and right thumb Assessment/Plan Diagnosis Plan 1. Closed nondisplaced fracture of distal phalanx of right thumb with routine healing, subsequent encounter 2. Laceration of left lower extremity, subsequent encounter Patient doing well. NO need to re-xray thumb at this point. Plan is to continue the splint for another 2-3 weeks. She can remove splint daily gently do ROM starting tomorrow. Follow up in 3-5 days and we can remove the steri strips. That laceration is healing well. I personally spent a total of 15 minutes in pre-visit work, during-visit work, and post-visit work. There are no Patient Instructions on file for this visit. Return in about 5 days (around 02/27/2021) for Recheck. Note created using voice dictation software. documented in this encounter Plan of Treatment Not on filedocumented as of this encounter Visit Diagnoses Diagnosis Closed nondisplaced fracture of distal p halanx of right thumb with routine healing, subsequent encounter - Primary Laceration of left lower extremity, subs equent encounter documented in this encounter Care Teams Hospital Nurse Liaison Relationship Specialty Start Date End Date Dontrell Gallardo MD PCP - General Family Medicine 01/31/21 [address] [place] [address] documented as of this encounter
--- OUTSIDE RECORDS SUMMARY | 2022-05-06 13:05 | XMS_ITS | Encounter Summary ---
:1935 Author Organization [facility] Address [address] [place] [address] Care Team Providers Name Role Phone Antonia Aldrich APRN, STAKING PRESS OPERATOR Primary Care Provider [phone] Encounter Details Date Type Department Care Team Description 01/11/2020 Travel Social History Tobacco Use Types Packs/Day Years [...] Assigned at Date Recorded Not on file COVID-19 Exposure Response Date Recorded In the last month, have you been in contact with No / Unsure 01/11/2020 9:52 AM CDT someone who was confirmed or suspected to have Coronavirus / COVID-19? documented as of this encounter Plan of Treatment Not on filedocumented as of this encounter Visit Diagnoses Not on filedocumented in this encounter Care Teams Assistant City Attorney Relationship Specialty Start Date End Date Antonia Aldrich CYRIL, STAKING PRESS OPERATOR PCP - General 04/20/18 05/21/20 [address] [facility] [place] [address] documented as of this encounter
--- OUTSIDE RECORDS SUMMARY | 2022-05-06 13:05 | XMS_ITS | Encounter Summary ---
:[address] [facility] Address [address] [place] [address] Care Team Providers Name Role Phone Dontrell Gallardo MD Primary Care Provider Reason for Visit Reason Onset Date Comments Med Refill 12/05/2020 Encounter Details Date Type Department Care Team Description 12/05/2020 Refill [facility] Jelly Kendrick, Allergic rhinitis, [address] unspecified seasonality, [place], [place] [address] [address] unspecified trigger [phone] [place] [address] Social History Tobacco Use Types Packs/Day Years [...] this encounter Miscellaneous Notes Telephone Encounter - Italia Hawthorne RN - 12/05/2020 4:41 PM CDT Spoke with patient to advise of prescription being sent. Telephone Encounter - Mitali Cardona MA - 12/05/2020 11:53 AM CDT Last visit in provider department: 11/01/2020 with Suze Tolentino CNP Last visit requested medication was discussed: med/dx has not been reviewed in the last year Upcoming appointment with provider: none Last Rx: 05/07/2020 #180, 1 refill Requested Prescriptions Pending Prescriptions Disp Refills ? ? fexofenadine-pseudoephedrine ([facility]) 60-120 MG per 12 hr tablet 180tablet 0 Sig: May take ONE tab up to two times a day for nasal congestion as needed Patient is due for an annual appointment. PSR/Nurse: Please contact patient to assist with scheduling. documented in this encounter Plan of Treatment Not on filedocumented as of this encounter Visit Diagnoses Diagnosis Allergic rhinitis, unspecified seasonali ty, unspecified trigger documented in this encounter Care Teams Assistant Infant Teacher Relationship Specialty Start Date End Date Dontrell Gallardo MD PCP - General Family Medicine 01/31/[address] [place] [address] documented as of this encounter
--- OUTSIDE RECORDS SUMMARY | 2022-05-06 13:05 | XMS_ITS | Encounter Summary ---
:[address] [facility] Address [address] [place] [address] Care Team Providers Name Role Phone None, Pcp Primary Care Provider Unavailable Reason for Referral Consultation (Routine) - Closed Specialty Diagnoses / Procedures Referred By Contact Refer red To Contact Radiology Diagnoses Elevated liver function tests Prema Mcwilliams APRN, CNP [address] - [place], [place] [address] [place] [address] [place] [address] Phone: Fax: Referral ID Status Reason Start Date Expiration Date Visits Requ ested Visits Authorized [id number] Closed 11/05/2020 11/05/2021 1 1 Scheduling Instructions Liver Ultrasound ING AND VENTILATING TENDER Reason for Visit Reason Onset Date Comments referral question 11/05/2020 Encounter Details Date Type Department Care Team Description 11/05/2020 Telephone [place] Ángel, Pcp referral question [address] [place], [place] [address] [place], [place] [phone] Social History Tobacco Use Types Packs/Day Years [...] documented as of this encounter Miscellaneous Notes Addendum Note - Prema Mcwilliams APRN, CNP - 11/05/2020 3:06 PM HEATING AND VENTILATING TENDER Addended by: PREMA MCWILLIAMS on: 11/05/2020 03:06 PM Modules accepted: Orders ING AND VENTILATING TENDER Telephone Encounter - Prema Mcwilliams APRN, CNP - 11/05/2020 2:57 PM CST Referral stated in scheduling comment to [facility] for RUQ Ultrasound. I did completea new referral now stating liver ultrasound. ING AND VENTILATING TENDER Telephone Encounter - Amber Jon RN - 11/05/2020 2:39 PM CST RN spoke to patient. She is stating she was to get a neurology referral to [place] and a liver ultrasound order to [facility]. These orders were placed on 11/02 however the radiology order doesnot state what specific test the provider would like. They are requesting that you place another referral and state in clinical question being asked liver ultrasound. ING AND VENTILATING TENDER Telephone Encounter - Rosa Wells LPN - 11/05/2020 11:25 AM CST Two referrals were created by you on 11/02. One to [facility] and one to [facility]. Per your request we have canceled the [place] referral stating radiology. ING AND VENTILATING TENDER Telephone Encounter - Prema Mcwilliams APRN, CNP - 11/05/2020 9:38 AM CST I called to let pt know I put in neurology referral at [facility] on 11/02/20. The referral did not state [facility]. It stated [facility] neurology. ING AND VENTILATING TENDER Telephone Encounter - Rosa Wells LPN - 11/05/2020 9:25 AM CST [facility] called and was not sure what Radiology test you were requesting. Can you look at that and place a new referral with which ever test you would like completed. Then send this message back to the nursing staff to schedule. Much appreciated. ING AND VENTILATING TENDER Telephone Encounter - Faviola Ivy - 11/05/2020 9:21 AM CST Johny with [facility] called stating he has received a referral but is not sure what it is for. Please call Johny at [phone] to advise. ING AND VENTILATING TENDER documented in this encounter Plan of Treatment Scheduled Referrals Name Type Priority Associated Order Schedule Diagnoses Ambulatory External Outpatient Referral Routine Elevated liver Ordered: Referral function tests 11/05/2020 documented as of this encounter Visit Diagnoses Diagnosis Elevated liver function tests - Primary Other abnormal blood chemistry documented in this encounter Care Teams Fire Watcher Relationship Specialty Start Date End Date None, Pcp PCP - General Well Tester 06/12/20 01/30/[address] [place] [phone] documented as of this encounter
--- OUTSIDE RECORDS SUMMARY | 2022-05-06 13:05 | XMS_ITS | Encounter Summary ---
:1935 Author Organization [facility] Address [address] [place] [address] Care Team Providers Name Role Phone Dontrell Gallardo MD Primary Care Provider Encounter Details Date Type Department Care Team Description 09/05/2021 [place] [address] [place], [place] [address] [place], [place] [phone] (Wo rk) Social History Tobacco Use Types [...] this encounter Miscellaneous Notes Telephone Encounter - Faviola Ivy - 09/05/2021 11:30 AM CST Rx faxed to [facility] pharmacy. MANAGEMENT ASSISTANT Telephone Encounter - Amber Jon RN - 09/05/2021 11:28 AM CST Please fax patient Rx. MANAGEMENT ASSISTANT documented in this encounter Plan of Treatment Not on filedocumented as of this encounter Visit Diagnoses Not on filedocumented in this encounter Care Teams Color Consultant Relationship Specialty Start Date End Date Dontrell Gallardo MD PCP - General Family Medicine 01/31/21 [address] [facility] [address] [place] [address] documented as of this encounter
--- OUTSIDE RECORDS SUMMARY | 2022-05-06 13:05 | XMS_ITS | Encounter Summary ---
:1935 Author Organization [facility] Address [address] [place] [address] Care Team Providers Name Role Phone None, Pcp Primary Care Provider Unavailable Reason for Visit Reason Onset Date Comments Ear pain 08/17/2020 Encounter Details Date Type Department Care Team Description 08/17/2020 Telephone [place] Jelly Kendrick MD Ear pain [address] [place], [place] [address] [place], [place] [phone] (Wo rk) Social History Tobacco Use Types [...] this encounter Miscellaneous Notes Telephone Encounter - Rosa Wells LPN - 08/17/2020 1:42 PM CST Patient informed WASHER HAND Telephone Encounter - Jelly Kendrick MD - 08/17/2020 1:30 PM CST Let Kathryn know that I have sent to her [facility] in for an anti-itch cream that she can use inher ear canal (may use a q-tip to apply or her fingertip). She can use this for 5-7 days or so and if it works she can use it as needed. If it doesn't work or if the itch gets worse and the ear canal gets swollen she should stop and then let us know. WASHER HAND Telephone Encounter - Rosa Wells LPN - 08/17/2020 1:18 PM CST Let Kathryn know that this is not shingles. ??She could have a fungus along with her infection that makes it itch. ??Is her ear still red/swollen or is this better. ??Is it just the ear or also the ear canal that itches. ??On her allergy list it lists microconazole. ??Does she know what this allergy is or does she not remember this. ??I would like to send to her pharmacy for an anti-itch and anti-fungalcream but I need to know about her allergy. ??Review this with her let me know. Her ear is no long red or swollen. Its itchy into her ear but she can't really say that it is down into the ear but where she can touch. She can't remember what her allergy is to it. She stated she get severe headache from a nitroglycerin cream she has after surgery to place on her incision. WASHER HAND Telephone Encounter - Rosa Wells LPN - 08/17/2020 8:29 AM CST Itches so bad Pain comes and goes Sometimes its warm and it will go away and it comes back again. Wondering if it could be shingles? WASHER HAND Telephone Encounter - Miryam Pickering - 08/17/2020 8:04 AM CST Patient was told to call if ear is still bothering her. She also has a question about shingles. Please call her at [phone]. WASHER HAND documented in this encounter Plan of Treatment Not on filedocumented as of this encounter Visit Diagnoses Diagnosis Ear itch - Primary documented in this encounter Care Teams Summer Law Clerk Relationship Specialty Start Date End Date None, Pcp PCP - General Tea Tree Farmer 06/12/20 01/30/[address] [place] [phone] documented as of this encounter
--- OUTSIDE RECORDS SUMMARY | 2022-05-06 13:05 | XMS_ITS | Encounter Summary ---
:1935 Author Organization [facility] Address [address] [place] [address] Care Team Providers Name Role Phone None, Pcp Primary Care Provider Unavailable Reason for Visit Reason Comments Immunizations flu Encounter Details Date Type Department Care Team Description 06/12/2020 Immunization Nikhil Hernandez Immunization due (Primary [address] [...] Primary documented in this encounter Care Teams Prototype Assembler Electronics Relationship Specialty Start Date End Date None, Pcp PCP - General Spring Assembler 06/12/20 01/30/21 [address] [place] [address] documented as of this encounter
--- OUTSIDE RECORDS SUMMARY | 2022-05-06 13:05 | XMS_ITS | Encounter Summary ---
:1935 Author Organization [facility] Address [address] [place] [address] Care Team Providers Name Role Phone Dontrell Gallardo MD Primary Care Provider Reason for Visit Reason Comments Immunizations FLU Encounter Details Date Type Department Care Team Description 07/04/2021 Immunization Nikhil Hernandez Immunization due (Primary [address] [...] Primary documented in this encounter Care Teams Cardiopulmonary Physical Therapist Relationship Specialty Start Date End Date Dontrell Gallardo MD PCP - General Family Medicine 01/31/[address] [place] [address] documented as of this encounter
--- OUTSIDE RECORDS SUMMARY | 2022-05-06 13:05 | XMS_ITS | Encounter Summary ---
:1935 Author Organization [facility] Address [address] [place] [address] Care Team Providers Name Role Phone Dontrell Gallardo MD Primary Care Provider Encounter Details Date Type Department Care Team Description 03/01/2021 Orders Only [place] Jelly Kendrick (Primary Dx); [address] MD [place] Cellulitis, unspecified cellulitis site [place], [place] [address] [address] [facility] [address] [place] [address] Social History Tobacco Use Types Packs/Day Years [...] as of this encounter Visit Diagnoses Diagnosis Thrush - Primary Candidiasis of mouth Cellulitis, unspecified cellulitis site documented in this encounter Care Teams Reinforcer Relationship Specialty Start Date End Date Dontrell Gallardo MD PCP - General Family Medicine 01/31/[address] [place] [address] documented as of this encounter
--- OUTSIDE RECORDS SUMMARY | 2022-05-06 13:05 | XMS_ITS | Encounter Summary ---
:1935 Author Organization [facility] Address [address] [place] [address] Care Team Providers Name Role Phone None, Pcp Primary Care Provider Unavailable Reason for Visit Reason Onset Date Comments fax 11/02/2020 Encounter Details Date Type Department Care Team Description 11/02/2020 Telephone Prasanth Hernandez None, Pcp fax [address] [place], [place] [address] [place] [address] Social History Tobacco Use Types Packs/Day [...] Notes Telephone Encounter - Miryam Pickering - 11/05/2020 3:16 PM CST Referral faxed. [facility] [employer] Telephone Encounter - Amber Jon RN - 11/05/2020 2:59 PM CST Please refax order. [facility] PRACTICE PROFESSIONAL Telephone Encounter - Rosa Wells LPN - 11/05/2020 9:27 AM CST Noted, when radiology [facility] arrives, please refax due to error in first referral. HOLD message till nurse receives the correct referral. [facility] PRACTICE PROFESSIONAL Telephone Encounter - Faviola Ivy - 11/02/2020 4:40 PM CST One referral faxed to [facility] radiology and one faxed to [facility] general referral as requested. NC[facility] PRACTICE PROFESSIONAL Telephone Encounter - Amber Jon RN - 11/02/2020 4:21 PM CST Please fax referral to [facility]. NCED PRACTICE PROFESSIONAL documented in this encounter Plan of Treatment Not on filedocumented as of this encounter Visit Diagnoses Not on filedocumented in this encounter Care Teams Geotechnical Engineering Technician Relationship Specialty Start Date End Date None, Pcp PCP - General [place] Truck Driver 06/12/20 01/30/[address] [place] [phone] documented as of this encounter
--- OUTSIDE RECORDS SUMMARY | 2022-05-06 13:05 | XMS_ITS | Encounter Summary ---
:1935 Author Organization [facility] Address [address] [place] [address] Care Team Providers Name Role Phone None, Pcp Primary Care Provider Unavailable Encounter Details Date Type Department Care Team Description 10/18/2020 Immunization Family Medicine [address] [place] [address] Social History Tobacco Use Types Packs/Day Years [...] on filedocumented in this encounter Care Teams Automobile Service Advisor Relationship Specialty Start Date End Date None, Pcp PCP - General Cargo And Container Inspector 06/12/20 01/30/21 [address] [place] [address] documented as of this encounter
--- OUTSIDE RECORDS SUMMARY | 2022-05-06 13:05 | XMS_ITS | Encounter Summary ---
:[address] [facility] Address [address] [place] [address] Care Team Providers Name Role Phone Dontrell Gallardo MD Primary Care Provider Reason for Visit Reason Comments Follow-up Fell up stairs Encounter Details Date Type Department Care Team Description 02/25/2021 Office Visit rPasanth Hernandez Jelly Kendrick Skin tear of left lower [address] MD [place] leg without [place] [address] complication, [place] subsequent encounter [place] (Primary Dx ) [phone] Social History Tobacco Use Types Packs/Day Years [...] Sign Reading Time Taken Comments Blood Pressure 122/70 02/25/2021 8:45 AM CDT Pulse 82 02/25/2021 8:45 AM CDT Temperature 36.4 ??C (97.6 ??F) 02/25/2021 8:45 AM CDT Respiratory Rate 16 02/25/2021 8:45 AM CDT Oxygen Saturation 95% 02/25/2021 8:45 AM CDT Inhaled Oxygen Concentration - - Weight 72.6 kg (160 lb) 02/25/2021 8:45 AM CDT Height 157.5 cm (5' 2.01) 02/25/2021 8:45 AM CDT Body Mass Index 29.26 02/25/2021 8:45 AM CDT documented in this encounter Progress Notes Jelly Kendrick MD - 02/25/2021 8:40 AM CDT Estab Patient Visit Subjective Patient ID: Kathryn Leon is a 86 y.o. female. HPI patient is here today for follow-up after receiving an injury approximately 10 days ago. The patient is our 86-year-old individual who unfortunately tripped and fell over a brick patio while she was at her son's place. She was seen in the emergency room at that time she had a skin tear fairly extensive to the distal portion of her anterior left otto. She had Steri-Strips applied no x-rayswere acquired and she was seen in the office about 3 days later for review. She was seen by my partner Dr. Gallardo who felt that the wound was free of infection and doing well atthat time. He did x-ray her right thumb that was he injured and it did show a nondisplaced fracture of her distal phalanx right thumb and she is now appropriately splinted. She comes in today because they are leaving on a 2-day trip and wanted the wound to be rechecked before she left. She is now also having a little more swelling in that left lower extremity than she had before but no fevers no chills no pain no significant drainage although there is a little drainage on her currentdressing. Review of Systems Objective Physical Exam she is alert she appears comfortable her vital signs are stable and show blood pressure 122/70 pulse 82 regular rate and rhythm temp 97.6 current weight 160 pounds and her O2 sat is 95% on room air Her right thumb he is still in the splint and is doing okay. Her left lower otto however shows that everything is still intact his Steri- Strips are in place there is an area however on the medial portion of the laceration or skin tear then it looks to be a little bit purulent. There is no signs of surrounding cellulitis or erythema there is no surrounding tenderness around the wound itself but we did remove one of the Steri-Strips to get a little better look at the wound and in doing so we did do a culture of this area. She does have a little bit of swelling in the ankle foot lower leg area will hard to say whether this is about the same or according to the patient just a little bit more than typical but the swelling is not tender again no signs of erythema no signs of cellulitis We did redress everything after gently cleaning it with sterile saline. Assessment/Plan Diagnoses and all orders for this visit: Skin tear of left lower leg without complication, subsequent encounter - Wound culture - sulfamethoxazole-trimethoprim (Bactrim DS) 800-160 MG per tablet; Take 1 tablet by mouth 2 (two) times a day for 7 days The overall assessment is skin tear left lower extremity that though he is showing signs of at leastthe local infection of the wound itself. Plan once the culture is taken we have initiated her on Septra double strength twice a day for possible MRSA infection and we will see her back in the office in 4 days time for reevaluation sooner if needed. documented in this encounter Plan of Treatment Not on filedocumented as of this encounter Procedures Procedure Name Priority Date/Time Associated Diagnosis Comme nts WOUND CULTURE Routine 02/25/2021 9:05 AM Skin tear of left Res ults for this CDT lower leg without procedure are in the complication, results sectio n. subsequent encounter documented in this encounter Results Wound culture (02/25/2021 9:05 AM CDT) Component Value Ref Test Analysis Performed At [facility] Range Method Time Signature Wound Culture Many Beta hemolytic Streptococcus species, non A non B. 02/27/2021 [place] Beta hemolytic Strep remains universally susceptible t o penicillin. 7:40 AM CDT [facility] Gram Stain Moderate gram 02/26/2021 [place] positive cocci, 10:11 AM MEDICAL pairs and chains. CDT CENTER No WBC's seen. LABORATORY Specimen Anatomical Collection Method Collection Time Receive d Time (Source) Location / / Volume Laterality Wound (Leg, Left 02/25/2021 9:05 AM 02/25 Lower) CDT 12:23 PM CDT Comment: WOUND Narrative [facility] - 02/12 7:41 AM CDT Patient does not have an Amoxicillin or PCN allergy D. Jordan Kendrick MD LAB MICROBIOLOGY - GENERAL O RDERABLES Performing Organization Address City/State/ZIP Code Phon e Number [facility] [address] [place] [id number] documented in this encounter Visit Diagnoses Diagnosis Skin tear of left lower leg without comp lication, subsequent encounter - Primary documented in this encounter Care Teams Proc Tech Relationship Specialty Start Date End Date Dontrell Gallardo MD PCP - General Family Medicine 01/31/[address] [place] [address] documented as of this encounter
--- OUTSIDE RECORDS SUMMARY | 2022-05-06 13:05 | XMS_ITS | Encounter Summary ---
:1935 Author Organization [facility] Address [address] [place] [address] Care Team Providers Name Role Phone None, Pcp Primary Care Provider Unavailable Encounter Details Date Type Department Care Team Description 11/15/2020 Immunization Family Medicine [address] [place] [address] Social History Tobacco Use Types Packs/Day Years [...] on filedocumented in this encounter Care Teams Webmethods Consultant Relationship Specialty Start Date End Date None, Pcp PCP - General Rock Wool Insulator 06/12/20 01/30/21 [address] [place] [address] documented as of this encounter
--- OUTSIDE RECORDS SUMMARY | 2022-05-06 13:05 | XMS_ITS | Encounter Summary ---
:1935 Author Organization [facility] Address [address] [place] [address] Care Team Providers Name Role Phone Dontrell Gallardo MD Primary Care Provider Reason for Visit Reason Onset Date Comments leg wound 03/01/2021 Encounter Details Date Type Department Care Team Description 03/01/2021 Telephone [place] Jelly Kendrick MD leg wound [address] [place], [place] [address] [place], [place] [phone] (Wo rk) Social History Tobacco Use Types [...] Telephone Encounter - Rosa Wells LPN - 03/01/2021 12:49 PM CDT Left a detailed message about two prescriptions sent to pharmacy. Telephone Encounter - Jelly Kendrick MD - 03/01/2021 12:46 PM CDT Call Kathryn and let her know I have sent her prescriptions for the new antibiotic for her like infection as well as the liquid medication for her oral thrush. They have been sent to [facility] pharmacy here in town. Then call the [facility] pharmacy and just let them know that we are stopping the Septra medication and she will be starting the Augmentin. Telephone Encounter - Rosa Wells LPN - 03/01/2021 10:42 AM CDT She does not have enough of the mouth rinse. Her's is outdated. Pharmacy: [facility] She has not taken an antibiotic for so long, she said just to try one and see how it goes. Please send in your recommendations on mouth rinse and a new antibiotic. Telephone Encounter - Jelly Kendrick MD - 03/01/2021 10:05 AM CDT Call Kathryn and have her stop taking the sulfa medication at this time. Then ask her if she has enoughof the mouth rinse at this time to use for the next 3 to 5 days or so and if so that probably will be sufficient. If not I can send in more for her. Then ask her whether she has any problems taking an antibiotic called Augmentin. Most common side effect can be stomach upset. If not I will send this new prescription in for her to start. If she is concerned she might get nauseous from it I will send infor plain amoxicillin for her to take. Then I would like her to contact us on Thursday to give us an update. Let me know. Telephone Encounter - Amber Jon RN - 03/01/2021 9:39 AM CDT Patient stated since starting the Bactrim she has sores in her mouth. She said this happened with anantibiotic previously, she is using a Nystatin mouth rinse that Harman gave her a few years ago. Should she be doing anything differently for these sores? Does the patient need to change antibiotics? She reports the leg wound is more painful than before and she is having shooting pains up her leg.She denies any yellow or green drainage, she stated it is just like watery blood. Leg remains warm to the touch, no fever noted. Telephone Encounter - Faviola Ivy - 03/01/2021 9:23 AM CDT Pt called asking to talk with a nurse about the wound on her leg and the antibiotic Rx. Please call Pt at [phone] to advise. documented in this encounter Plan of Treatment Not on filedocumented as of this encounter Visit Diagnoses Not on filedocumented in this encounter Care Teams Senior Officer Relationship Specialty Start Date End Date Dontrell Gallardo MD PCP - General Family Medicine 01/31/[address] [place] [address] documented as of this encounter
--- OUTSIDE RECORDS SUMMARY | 2022-05-06 13:05 | XMS_ITS | Encounter Summary ---
:1935 Author Organization [facility] Address [address] [place] [address] Care Team Providers Name Role Phone Dontrell Gallardo MD Primary Care Provider Reason for Visit Reason Comments Follow-up ER Leg Encounter Details Date Type Department Care Team Description 02/18/2021 Office Visit Nikhil Hernandez Dontrell Gallardo, Laceration of left lower ext remity, subsequent encounter (Primary Dx); [address] Thumb injury, initial encounter; Nikhil Hernandez [place] [address] Nondisplaced fracture of distal phalanx of right thumb, initial encounter for closed fracture [address] Nikhil Hernandez [place] [phone] Social History Tobacco Use Types Packs/Day Years [...] Sign Reading Time Taken Comments Blood Pressure 132/82 02/18/2021 8:58 AM CDT Pulse 82 02/18/2021 8:58 AM CDT Temperature 36.3 ??C (97.4 ??F) 02/18/2021 8:58 AM CDT Respiratory Rate 12 02/18/2021 8:58 AM CDT Oxygen Saturation 95% 02/18/2021 8:58 AM CDT Inhaled Oxygen Concentration - - Weight 71.7 kg (158 lb) 02/18/2021 8:58 AM CDT Height 157.6 cm (5' 2.05) 02/18/2021 8:58 AM CDT Body Mass Index 28.85 02/18/2021 8:58 AM CDT documented in this encounter Progress Notes Dontrell Gallardo MD - 02/18/2021 9:00 AM CDT Subjective Patient ID: Kathryn Leon is a 85 y.o. female. Chief Complaint Patient presents with ??? Follow-up ER Leg HPI Patient reports she tripped over a patio brick on the first step of stairs and fell onto left lateral leg. She was seen in the ER in [place] and found to have 15 cm laceration had steristrips applied to wound as she had very thin skin. Ibuprofen is helping with pain. She is elevating in the evening and trying to not walk on that leg too much. She does not have crutches. She does have access to acane at home. She also has right thumb pain. She states she must of hit it when she fell but does not recall having pain while she was in the ER and it never got x-rayed. She says it hurts like the [place]. The following portions of the patient's chart were reviewed in this encounter and updated as appropriate: Tobacco Allergies Meds Med Hx Surg Hx Fam Hx ROS ROS done as noted in HPI Objective Visit Vitals BP 132/82 (BP Location: Left arm, Patient Position: Sitting, BP Cuff Size: Adult) Pulse 82 Temp 36.3 ??C (97.4 ??F) (Temporal) Resp 12 Ht 1.576 m (5' 2.05) Wt 71.7 kg (158 lb) SpO2 95% BMI 28.85 kg/m?? Smoking Status Never Smoker BSA 1.77 m?? Physical Exam GEN: well appearing, no acute distress, vital signs reviewed LEG: left lower leg laceration repaired with steri strips intact. Skin is normal in appearance around the wound. There is scant serosanguinous discharge on the medial edge of the wound. The bandage itself has some dried blood but no purulence. Finger: right thumb IP joint with tenderness to resisted flexion and severe tenderness to palpation of distal phalanx with ecchymosis noted over lateral and dorsal finger pad. Nail is intact. Mild swelling of distal phalanx. Independent review of Rt Thumb XR done in clinic shows distal phalanx non- displanced fracture. Placed in finger splint to immobilize thumb IP joint. Assessment/Plan Diagnosis Plan 1. Laceration of left lower extremity, subsequent encounter 2. Thumb injury, initial encounter X-ray finger thumb right X-ray finger thumb right 3. Nondisplaced fracture of distal phalanx of right thumb, initial encounter for closed fracture Patient's laceration appears well approximated and skin appears viable with Steri-Strips. Patient will follow up in 1 week for recheck. She has a fracture was placed in a splint will follow up in a week for recheck. She was discharged from neurology hospital admission on January 30, 2021 for vertigo. She had an incidental finding on her MRI which needs repeat MRI in end of February/early March and we will discuss this at next visit make sure this is ordered for her. She may have an active order through [place] [facility] where she was admitted. Return in about 1 week (around 02/25/2021) for Recheck. Note created using voice dictation [...] PROCEDURES documented in this encounter Visit Diagnoses Diagnosis Laceration of left lower extremity, subs equent encounter - Primary Thumb injury, initial encounter Nondisplaced fracture of distal phalanx of right thumb, initial encounter for closed fracture documented in this encounter Care Teams Care Team Coordinator Scheduler Relationship Specialty Start Date End Date Dontrell Gallardo MD PCP - General Family Medicine 01/31/[address] [place] [address] documented as of this encounter
--- OUTSIDE RECORDS SUMMARY | 2022-05-06 13:05 | XMS_ITS | Encounter Summary ---
:1935 Author Organization [facility] Address [address] [place] [address] Care Team Providers Name Role Phone None, Pcp Primary Care Provider Unavailable Reason for Visit Reason Comments Numbness legs and feet Tingling Consultation (Routine) - Closed Specialty Diagnoses / Procedures Referred By Contact Refer red To Contact Neurology Diagnoses Neuropathy of right lower extremity Suze Tolentino, CRIMINOLOGY TEACHER, LIPCOAT SPRAYER [facility] [address] [place] [address] [place] [address] Fax: Referral ID Status Reason Start Date Expiration Date Visits V isits Requested Authorized [id number] Closed Specialty 11/19/2020 11/19/2021 1 1 Services Required Encounter Details Date Type Department Care Team Description 12/04/2020 Consult [facility] Uziel Turpin, Polyneuropathy (Primary [address] Dx) [place] [address] [address] [phone] [address] (Wo rk) Social History Tobacco Use Types [...] Sign Reading Time Taken Comments Blood Pressure 116/66 12/04/2020 2:42 PM CDT Pulse 81 12/04/2020 2:42 PM CDT Temperature 36.6 ??C (97.9 ??F) 12/04/2020 2:42 PM CDT Respiratory Rate 16 12/04/2020 2:42 PM CDT Oxygen Saturation 98% 12/04/2020 2:42 PM CDT Inhaled Oxygen Concentration - - Weight 71.7 kg (158 lb 1.1 oz) 12/04/2020 2:42 PM CDT Height 157.6 cm (5' 2.05) 12/04/2020 2:42 PM CDT Body Mass Index 28.87 12/04/2020 2:42 PM CDT documented in this encounter Progress Notes Uziel Turpin MD - 12/04/2020 2:40 PM CDT Consultation Ms. Kathryn Leon is an 85-year-old woman who presents today for evaluation of her bilateral foot numbness. She reports that she started noticing numbness in her feet after she had lumbar surgery in 2009. She noticed it starting in the toes of both feet at around the same time over time though the right foot had been worse with numbness that goes back to the balls of each foot worse on the right. Prior to her lumbar surgery she was having numbness and pain in the right leg going down both the frontand back of the leg. She had the surgery in February 2010. MRI of the lumbar spine was performed at [facility] in 2009 which showed multilevel degenerative changes with a right lateralized disc bulge towards L4 nerve root according to the report. She reports mild balance problems but no falls. She has nohand symptoms. She is not getting back pain now. She reports getting some paresthesias in her feet usually when she is resting at night. She finds that if she gets up and walks around this relieves it.She had been taking gabapentin for this in the past but stopped it about 4 years ago and did not notice any benefit from taking it. Regarding past medical history she is been diagnosed with celiac disease. She has a diagnosis of rheumatoid arthritis and was on steroids in the past. She has osteoporosis she has had a bladder repair and a hysterectomy. Regarding family history she has no known neurologic disorders in the family. Regarding social history she lives in a [place]. She had retired from a [employer] business. She does not smoke or drink. Allergies Allergen Reactions ??? Gluten Unknown H/O Celiac Disease ??? Miconazole Nausea And Vomiting MICONAZOLE NITRATE ??? Miconazole Nitrate ??? Nuts Other (see comments) janine listed no reaction ??? Peanut (Diagnostic) Hives Other reaction(s): Throat Swelling/Closing Current Outpatient Medications on File Prior to Visit Medication Sig Dispense Refill ??? alendronate (FOSAMAX) 70 MG tablet TAKE 1 TABLET EVERY 7 DAYS (WEEKLY) ON AN EMPTY STOMACH, REMAIN UPRIGHT FOR AT LEAST 30 MINUTES ??? calcium citrate-vitamin D (CITRACAL+D) 315-200 MG-UNIT per tablet Take 2 tablets by mouth 1 (one) time each day ??? cholecalciferol (VITAMIN D-3) 10 MCG (400 UNIT) tablet Take 400 Units by mouth 1 (one) time eachday ??? Cyanocobalamin (VITAMIN B 12 PO) Take 1 tablet by mouth 1 (one) time each day ??? cycloSPORINE (RESTASIS) 0.05 % ophthalmic emulsion Administer 1 drop into both eyes 2 (two) times a day ??? Dorzolamide HCl-Timolol Mal PF 22.3-6.8 MG/ML solution Administer 1 drop into the right eye 1 (one) time each day Glaucoma ??? EPINEPHrine (EPIPEN 2-KRISTIN) 0.3 MG/0.3ML injection syringe Inject 0.3 mL (0.3 mg total) into the thigh if needed for anaphylaxis. Call 911 after use. NUT allergy ??? ferrous sulfate 325 (65 Fe) MG tablet Take 1 tablet by mouth 1 (one) time each day ? ? fexofenadine-pseudoephedrine (Rochelle-D Allergy & Congestion) 60-120 MG per 12 hr tablet Maytake ONE tab up to two times a day for nasal congestion as needed 180 tablet 1 ??? fluticasone (FLONASE) 50 MCG/ACT nasal spray USE 2 SPRAYS NASALLY DAILY 48 g 4 ??? Multiple Vitamins-Minerals (MULTIVITAMIN ADULT PO) ??? omeprazole (PriLOSEC) [address] capsule Take 1 capsule (40 mg total) by mouth 1 (one) time each day 90 capsule 3 ??? UNABLE TO FIND Med Name: ZINC during COVID No current facility-administered medications on file prior to visit. All review of systems are noncontributory, except as described above. On examination: Blood pressure 116/66, pulse 81, temperature 36.6 ??C (97.9 ??F), temperature source Temporal, resp.rate 16, height 1.576 m (5' 2.05), weight 71.7 kg (158 lb 1.1 oz), SpO2 98 %. In general, the patient is well-developed, well-nourished, and in no acute distress. On cardiac assessment, the patient has a regular rhythm. On neurologic assessment, the patient is awake and alert with normal speech and language. The patient displays normal memory for recent and remote events. Fund of knowledge is adequate. Attention span and concentration are appropriate for the visit. Mood and affect are appropriate for the visit. On assessment of cranial nerves: II: pupils are equal and reactive. Funduscopic examination reveals normal disc margins on a normal background. III, IV, : Extraocular muscles are intact. V, VII: Face is symmetric with facial sensation intact. VIII: Hearing grossly intact bilaterally. IX, XII: Tongue and palate are midline. XI: Shoulder shrug is symmetric. On motor assessment, strength is full throughout with normal bulk and tone. Reflexes are normal and symmetric with downgoing toes bilaterally. Coordination in terms of fine finger movements and [id number]-[id number] is intact. On assessment of sensation, light touch is intact, vibration perception is intact distally. Romberg is negative. On assessment of gait, the patient can walk on toes and heels without difficulty. Tandem gait is intact. The patient ambulates with normal station and gait. In summary: Bilateral foot numbness. 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 Her exam howeveris benign with intact distal reflexes and intact vibratory perception distally. We discussed the etiology and prognosis of polyneuropathies. At this point I would like to get some screening tests to inc lude a hemoglobin A1c, B12 and SPEP with serum immunofixation. We discussed the possibility of doingelectrodiagnostic testing. At this point I would recommend that if she notices any worsening of her symptoms then we can proceed for further testing. We discussed medications for neuropathic pain. At this time she does not appear to need a medication. Prior lumbar surgery. This was likely for decompression at the level of L4 nerve root. Overall the pathology described on MR imaging prior to the surgery was not likely to produce more diffuse symptomssuch as bilateral foot numbness. It is more likely that she noticed foot numbness at the time of hersurgery as an observation of a chronic or slowly progressive process rather than there being a direct cause/effect relationship. She can follow-up with me as needed. Total visit time of 1 hour including [id number] and chart time. documented in this encounter Plan of Treatment Not on filedocumented as of this encounter Results (ABNORMAL) Monoclonal protein study, serum (12/04/2020 3:59 PM CDT) [facility] Method Time Signature Protein, Total 6.0 (L) 6.3 - 7.9 12/06/2020 [facility] g/dL 9:37 AM CDT LABORATORIES Albumin, Serum 3.1 (L) 3.4 - 4.7 12/06/2020 [facility] g/dL 9:37 AM CDT LABORATORIES Gpmbg-7-Mjftuqs 0.3 0.1 - 0.3 12/06/2020 [facility] n g/dL 9:37 AM CDT LABORATORIES Nltur-5-Ogvixxu 0.9 0.6 - 1.0 12/06/2020 [facility] n g/dL 9:37 AM CDT LABORATORIES Beta Globulin 0.9 0.7 - 1.2 12/06/2020 [facility] g/dL 9:37 AM CDT LABORATORIES Gamma Globulin 0.9 0.6 - 1.6 12/06/2020 [facility] g/dL 9:37 AM CDT LABORATORIES A/G Ratio 1.08 12/06/2020 [facility] 9:37 AM CDT LABORATORIES Impression - 12/06/2020 [facility] 9:37 AM CDT LABORATORIES Comment: No apparent monoclonal protein on serum electrophoresis. See Isotype. M-Protein Isotype SEE BELOW 12/06/2020 9:37 AM CDT [facility] MALDI-TOF MS LABORATORIES Comment: No monoclonal protein detected. ADDITIONAL INFORMATIO N The submitted sample was assayed by five separate immunopurifications for IgG, IgA, IgM, k appa and lambda. The result reflects the findings of [facility] miriam no monoclonal protein detected or those monoclonal imm unoglobulins that were detected. This test was developed and its performa nce characteristics determined by [facility] in a manner co nsistent with CLIA requirements. This test has not been garth ared or approved by the U.S. Food and Drug Administration. Flag, M-Protein Negative Negative 12/06/2020 9:37 AM [facility] Isotype CDT LABORATORIES Comment: Test Performed by: [facility] [address] [address] [place] Buster: Mark Pittman M.D. Ph. D.; CLIA# [id number] Therapeutic Antibody Not Provided 12/06/2020 9:37 AM [facility] Administered? CDT LABORATORIES Specimen Anatomical Collection Method Collection Time Receive d Time (Source) Location / / Volume Laterality Blood (Blood, 12/04/2020 3:59 PM 12/05/19 21 4:36 Venous) CDT PM CDT Uziel Turpin MD LAB BLOOD ORDERABLES Performing Organization Address City/State/ZIP Code Phon e Number [facility] see result attachment for specific address Vitamin B12 (12/04/2020 3:59 PM CDT) athologist Signature Vitamin B-12 [phone] 12/04/2020 [facility] pg/mL 6:10 PM CDT CENTER LABORATORY [...] Laterality Blood (Blood, 12/04/2020 3:59 PM 12/05/19 5:04 Venous) CDT PM CDT Uziel Turpin MD LAB BLOOD ORDERABLES Performing Organization Address City/[facility]/ZIP Code Phon e Number [facility] [address] [place] [id number] Hemoglobin A1c (12/04/2020 3:59 PM CDT) P athologist Signature Hemoglobin A1C 5.4 4.0 - 5.6 12/04/2020 [facility] % A1C 5:26 PM CDT CENTER LABORATORY [...] Laterality Blood (Blood, 12/04/2020 3:59 PM 12/05/19 5:04 Venous) CDT PM CDT Uziel Turpin MD LAB BLOOD ORDERABLES Performing Organization Address City/[facility]/ZIP Code Phon e Number [facility] [address] [place] [phone] documented in this encounter Visit Diagnoses Diagnosis Polyneuropathy - Primary Unspecified hereditary and idiopathic pe ripheral neuropathy documented in this encounter Care Teams Um Rn Relationship Specialty Start Date End Date None, Pcp PCP - General Artillery Or Naval Gunfire Observer 06/12/20 01/30/21 [address] [place] [address] documented as of this encounter
--- OUTSIDE RECORDS SUMMARY | 2022-05-06 13:05 | XMS_ITS | Encounter Summary ---
:1935 Author Organization [facility] Address [address] [place] [address] Care Team Providers Name Role Phone Dontrell Gallardo MD Primary Care Provider Reason for Visit Reason Comments Leg Pain Encounter Details Date Type Department Care Team Description 03/27/2021 Office Visit Prasanth Hernandez Jelly Kendrick Visit for wound check [address] [place] (Primary Dx) [place], [place] [phone] [facility] [address] [place] [address] Social History Tobacco Use Types Packs/Day Years [...] Mass Index 28.53 03/27/2021 8:36 AM CDT documented in this encounter Patient Instructions Patient InstructionsD. Jordan Kendrick MD - 03/27/2021 8:40 AM CDT You may take ONE Tylenol 650 mg THREE times a day for leg pain. You can do this for an indefinite period of time. If you would like to have your Liver Tests checked you may do so at anytime as you are in the computer to have this done. Just call the office to schedule a LAB visit. documented in this encounter Progress Notes Jelly Kendrick MD - 03/27/2021 8:40 AM CDT Estab Patient Visit Subjective Patient ID: Kathryn Leon is a 86 y.o. female. HPI the patient is here today for follow-up of left lower leg wound check. Approximately 6 weeks or so ago she tripped on a [employer] brick and unfortunately suffered a fairly significant skin tear of her left lower otto. She was seen in the emergency room and received local wound cares as it was not amenable to suturing. We have seen her on a couple occasions in the office 1 when she developed an infection so we extended antibiotics and now she comes in to have it reviewed. If still continues to have a little drainage and actually still has some pain involved with sharp stabbing pains sometimes pain that shoots up on either side of the wound edges up to the upper portion of her leg is really quite sensitive still to light palpation. She is having no fevers no chills the drainage is quite minimum though she does still keep it covered during the daytime to keep her pant leg from rubbing against that. She finds that ibuprofen does not help her pain much but one Tylenol once a day helps quite a bit. She is been reluctant to take more Tylenol because of a history of some elevated liver test however onfurther review of her chart the liver test elevations were what I called fairly minimal and not significant. Review of Systems Objective Physical Exam she is alert she appears comfortable her vital signs show a blood pressure 118/78 pulse 76 regular rate and rhythm temp 96.5 her current weight is 156 pounds O2 sat 98% room air On the lower part of her left anterior otto the wound that she had which was a more of a skin tear flap with a V formation pointing down with total length of the wound about 8 cm or so. It is starting to heal well there is no further redness except for around the wound edges themselves which is appropriate there is no obvious drainage there as well healed tissue over the wound itself. There is no redstreaking but it is a bit sensitive with the end of approximately 4 cm of the wound edges. There is no swelling of the calf there is a little bit of swelling of the ankle and foot area but not much her gait and balance are normal. When she is walking is actually not as bothersome as it is sometimes resting where she feels this pain more. Assessment/Plan Diagnoses and all orders for this visit: Visit for wound check The overall assessment this time is a recheck of a laceration that was suffered about 6 weeks ago. There is no signs of infection at this time the wound actually appears to be healing very well she is just a little sensitive secondary to some inflammatory response from the injury itself. The plan at this time is no further antibiotics are needed she can increase her Tylenol to a 650 mg tablet 3 times a day for pain relief. I have placed an order for her to get liver functions checked on her chart at a time if she would like to come in just to see how she is doing. documented in this encounter Plan of Treatment Not on filedocumented as of this encounter Visit Diagnoses Diagnosis Visit for wound check - Primary documented in this encounter Care Teams Production Control Clerk Relationship Specialty Start Date End Date Dontrell Gallardo MD PCP - General Family Medicine 01/31/[address] [place] [address] documented as of this encounter
--- OUTSIDE RECORDS SUMMARY | 2022-05-06 13:05 | XMS_ITS | Encounter Summary ---
:1935 Author Organization [facility] Address [address] [place] [address] Care Team Providers Name Role Phone Dontrell Gallardo MD Primary Care Provider Reason for Visit Reason Onset Date Comments Med Refill Med Refill 05/23/2021 Encounter Details Date Type Department Care Team Description 05/07/2021 Refill [place] Dontrell Gallardo, Gastroesophageal reflux [address] [place], [place] [address] [facility] [address] [place] [phone] [place] [address] Social History Tobacco Use Types Packs/Day Years [...] this encounter Miscellaneous Notes Telephone Encounter - Pamela Elam LPN - 05/07/2021 1:29 PM CDT Last visit in provider department: 03/27/2021 Last visit requested medication was discussed: med / dx not reviewed in the last year Upcoming appointment with provider: Visit date not found Last Rx: 06/04/2020 # 90, 3 refills Requested Prescriptions Pending Prescriptions Disp Refills ??? omeprazole (PriLOSEC) [address] capsule [Pharmacy Med Name: OMEPRAZOLE DR CAPS 40MG] 90 capsule 3 Sig: TAKE 1 CAPSULE DAILY Please advise if patient is needing to be seen. Please work with your PSR's and or nurses to help patient with scheduling an appointment. Thank you documented in this encounter Plan of Treatment Not on filedocumented as of this encounter Visit Diagnoses Diagnosis Gastroesophageal reflux disease Esophageal reflux documented in this encounter Care Teams Medical Services Manager Relationship Specialty Start Date End Date Dontrell Gallardo MD PCP - General Family Medicine 01/31/21 [address] [place] [address] documented as of this encounter
--- OUTSIDE RECORDS SUMMARY | 2022-05-06 13:05 | XMS_ITS | Encounter Summary ---
:1935 Author Organization [facility] Address [address] [place] [address] Care Team Providers Name Role Phone Dontrell Gallardo MD Primary Care Provider Reason for Visit Reason Onset Date Comments RX 05/23/2021 Encounter Details Date Type Department Care Team Description 05/23/2021 Telephone [place] Dontrell Gallardo MD RX [address] [place], [place] [address] [place], [place] [phone] (Wo rk) Social History Tobacco Use Types [...] Notes Telephone Encounter - Miryam Pickering - 05/23/2021 9:17 AM CDT Patient is requesting refill of Flonase sent to [facility]. documented in this encounter Plan of Treatment Not on filedocumented as of this encounter Visit Diagnoses Diagnosis Allergic rhinitis, unspecified seasonali ty, unspecified trigger documented in this encounter Care Teams Enterprise Manager Relationship Specialty Start Date End Date Dontrell Gallardo MD PCP - General Family Medicine 01/31/[address] [place] [address] documented as of this encounter
--- OUTSIDE RECORDS SUMMARY | 2022-05-06 13:05 | XMS_ITS | Encounter Summary ---
:1935 Author Organization [facility] Address [address] [place] [address] Care Team Providers Name Role Phone Dontrell Gallardo MD Primary Care Provider Reason for Visit Reason Comments Immunizations FLU Encounter Details Date Type Department Care Team Description 07/02/2021 Immunization Nikhil Hernandez Immunization due (Primary [address] [...] Primary documented in this encounter Care Teams Auto Battery Builder Relationship Specialty Start Date End Date Dontrell Gallardo MD PCP - General Family Medicine 01/31/[address] [place] [address] documented as of this encounter
--- OUTSIDE RECORDS SUMMARY | 2022-05-06 13:05 | XMS_ITS | Encounter Summary ---
:1935 Author Organization [facility] Address [address] [place] [address] Care Team Providers Name Role Phone None, Pcp Primary Care Provider Unavailable Reason for Visit Reason Comments Medicare Annual Wellness Visit Subsequent Encounter Details Date Type Department Care Team Description 08/10/2020 Clinical Support Prasanth Hernandez Medicare annual wellness vis it, subsequent (Primary Dx); [address] Counseling regarding advance d directives and goals of care Prasanth Hernandez [place] [address] Social History Tobacco Use Types [...] Time Taken Comments Blood Pressure 140/68 08/10/2020 1:53 PM RECRUITER SPECIALIST Pulse 87 08/10/2020 1:53 PM RECRUITER SPECIALIST Temperature 36.8 ??C (98.2 ??F) 08/10/2020 1:53 PM RECRUITER SPECIALIST Respiratory Rate 20 08/10/2020 1:53 PM RECRUITER SPECIALIST Oxygen Saturation 97% 08/10/2020 1:53 PM RECRUITER SPECIALIST Inhaled Oxygen Concentration - - Weight 72 kg (158 lb 12.8 oz) 08/10/2020 1:53 PM RECRUITER SPECIALIST Height 157.6 cm (5' 2.05) 08/10/2020 1:53 PM RECRUITER SPECIALIST Body Mass Index 29 08/10/2020 1:53 PM RECRUITER SPECIALIST documented in this encounter Progress Notes Italia Hawthorne RN - 08/10/2020 3:40 PM CST Annual Wellness Visit CARE TEAM / RESOURCES: Patient Care Team: Pcp None as PCP - General (Branch Director) Eye Care: Dr. Ayers, [place] [facility]: Dr. Tay, [place] Pharmacy: [facility] - [address] [address] [facility] - [address] [address] [facility]-[address] [facility] [address] Other: No Visit Vitals BP 140/68 (BP Location: Right arm, Patient Position: Sitting) Pulse 87 Temp 36.8 ??C (98.2 ??F) (Temporal) Resp 20 Ht 1.576 m (5' 2.05) Wt 72 kg (158 lb 12.8 oz) SpO2 97% BMI 29.00 kg/m?? Smoking Status Never Smoker BSA 1.78 m?? Allergies Allergen Reactions ??? Gluten Unknown H/O Celiac Disease ??? Miconazole Nausea And Vomiting MICONAZOLE NITRATE ??? Miconazole Nitrate ??? Nuts Other (see comments) cerner listed no reaction ??? Peanut (Diagnostic) Hives Other reaction(s): Throat Swelling/Closing Outpatient Encounter Medications as of 08/10/2020 Medication Sig Dispense Refill ??? alendronate (FOSAMAX) 70 MG tablet TAKE 1 TABLET EVERY 7 DAYS (WEEKLY) ON AN EMPTY STOMACH, REMAIN UPRIGHT FOR AT LEAST 30 MINUTES ??? Alendronate Sodium (FOSAMAX PO) Take 70 mg by mouth per week ??? Aspirin Buf,TmQkfi-GhZpfm-LqF, 81 MG tablet Take 81 mg by mouth ??? calcium citrate-vitamin D (CITRACAL+D) 315-200 MG-UNIT [...] 1 (one) time each day Glaucoma ??? dorzolamide-timolol (COSOPT) 22.3-6.8 MG/ML ophthalmic solution ??? EPINEPHrine (EPIPEN 2-KRISTIN) 0.3 MG/0.3ML injection [...] SPRAYS NASALLY DAILY 48 g 4 ??? HYDROcodone-acetaminophen (NORCO) 5-325 MG per tablet ??? Multiple Vitamins-Minerals (MULTIVITAMIN ADULT PO) ??? Multiple Vitamins-Minerals (ZINC PO) Take by mouth ??? omeprazole (PriLOSEC) [address] capsule Take 1 capsule (40 mg total) by mouth 1 (one) time each day 90 capsule 3 No facility-administered encounter medications on file as of 08/10/2020. Immunization History Administered Date(s) Administered ??? Flu Vaccine High Dose 65yrs and Older IM 07/10/2015, 09/23/2016, 08/26/2017, 08/27/2017, 08/10/2018, 08/11/2018, 07/13/2019, 07/15/2019, 06/12/2020, 06/13/2020 ??? Hepatitis A 12/28/2001, 07/30/2006 ??? Hepatitis B 12/28/2001, 01/31/2002, 06/29/2006, 07/30/2006 ??? Hib (PRP-T) 02/01/2007 ??? Influenza (IM) Preservative Free 08/20/2009, 08/21/2009, 08/22/2009, 08/23/2009 ??? Influenza TIV (IM) 08/02/2012, 07/26/2014, 08/03/2014 ??? Influenza, Unspecified 06/26/2010, 09/25/2011, 07/27/2012, 07/29/2012, 08/02/2012, 07/01/2013, 07/04/2013, 07/05/2013, 07/26/2014, 07/10/2015, 07/12/2015, 09/23/2016, 09/24/2016 ??? Meningococcal MCV4P 02/01/2007 ??? Meningococcal Polysaccharide 02/01/2007 ??? Pneumococcal Conjugate 13-Valent 07/10/2015 ??? Pneumococcal Polysaccharide 02/01/2007 ??? Td 05/29/2000 ??? Tdap 11/04/2010, 06/17/2011 ??? Zoster 10/02/2010 Patient Active Problem List Diagnosis ??? Nonspecific elevation of levels of transaminase and lactic acid dehydrogenase (LDH) ??? Age-related osteoporosis without current pathological fracture ??? Allergic rhinitis ??? Candidal stomatitis ??? Gout ??? Osteoarthritis ??? Rheumatoid arthritis (HCC) Past Medical History: Diagnosis Date ??? Abnormal liver enzymes 10/05/2014 ??? Allergic rhinitis ??? Atrophic vaginitis ??? Bursitis of hip ??? Cataract ??? Celiac disease ??? Chest wall pain ??? Diverticulitis large intestine ??? Fracture of rib ??? Glaucoma right eye ??? Hiatal hernia ??? Osteopenia ??? Osteoporosis ??? Rheumatoid arthritis (HCC) ??? Varicella ??? Visual impairment Past Surgical History: Procedure Laterality Date ??? BACK SURGERY ??? BLADDER REPAIR 02/26/1995 ??? BREAST SURGERY ??? COLON SURGERY 12/31/06, 03/25/2011 ??? CYSTOCELE REPAIR ??? EYE SURGERY ??? FLEXIBLE SIGMOIDOSCOPY ??? HYSTERECTOMY ??? TONSILLECTOMY Social History Socioeconomic History ??? Marital status: Spouse name: Not on file ??? Number of children: Not on file ??? Years of education: Not on file ??? Highest education level: Not on file Occupational History ??? Occupation: Retired Social Needs ??? Financial resource strain: Not hard at all ??? Food insecurity Worry: Never true Inability: Never true ??? Transportation needs Medical: No Non-medical: No Tobacco Use ??? Smoking status: Never Smoker ??? Smokeless tobacco: Never Used Substance and Sexual Activity ??? Alcohol use: Yes ??? Drug use: Never ??? Sexual activity: Not on file Lifestyle ??? Physical activity Days per week: Not on file Minutes per session: Not on file ??? Stress: Not on file Relationships ??? Social connections Talks on phone: Not on file Gets together: Not on file Attends episcopalian service: Not on file Active member of club or organization: Not on file Attends meetings of clubs or organizations: Not on file Relationship status: Not on file ??? Intimate partner violence Fear of current or ex partner: Not on file Emotionally abused: Not on file Physically abused: Not on file Forced sexual activity: Not on file Other Topics Concern ??? Not on file Social History Narrative ??? Not on file General Care Management Assessment completed with:: Patient Enrolled in care management program:: No Living arrangement:: Spouse Type of residence:: Private residence Home care services:: No Equipment used at home:: None Communication device:: No Financial problems:: No Transportation issues:: No Transportation means:: Regular car Bed or wheelchair confined:: No Diet:: Regular Pain Assessment Scored: 3 and location: Ear Utilization / Navigation of Health Care Systems: Does not overuse the FastCare, Acute Care, eVisits or Emergency Room. PHQ-9 mental health screening performed. Scored: 0 / 27 TAYLOR-7 anxiety screening performed. Scored: 0 / 21 Mini-Cog test performed. Scored: 5 / 5 CAGE-AID test performed. BMI/weight management reviewed. BMI: Body mass index is 29 kg/m??. BMI less than 30 referral to nutrition education not applicable. Fall Risk Assessment performed. Scored: 0/ 14 Tug time: 10 seconds Referral to Physical Therapy not applicable due to low fall risk. Colon Cancer Screening: Last done: 12/31/2006 Due: 2016 Breast Cancer Screening: Last done: 06/27/2020 Osteoporosis Screening: Last done: 06/10/2017 Prostate Cancer Screening: Last done: No results found for: PSA Hepatitis C Screening: Lab Results Component Value Date HEPCAB NON-REACTIVE 08/13/2015 Glaucoma Screening: Preformed at outside facility AAA Screening: Not indicated Lung Cancer Screening: Not indicated Findings: Patient has Advanced Healthcare Directives on file electronically at this clinic and family is awareof wishes. The following referral(s) were created: None. What is an Annual Wellness Visit? Yearly appointment performed by another provider to create or update the personalized prevention plan. This plan helps prevent illness based on your current health and risk factors. ?? Medicare part B coverage the Annual Wellness Visit 100%. ?? Keep in mind that the annual wellness visit is not head to toe physical. ?? The service is similar to but separate from a one time a Welcome to Medicare Preventative Visit. The following information is regarding different screenings that will be discussed. Colon Cancer: ?? Age 50 and up (usually done until age 75) Breast Cancer: Medicare Part B (Medical Insurance) covers a Screening mammogram once every 12 months (11 full months must have passed since the last screening) ?? Women with Part B 40 or older are covered. Provider discretion beyond age 74 ?? Women with Part B between 35-39 can get one baseline mammogram Osteoporosis: Medicare Part B (Medical Insurance) covers this test once every 24 months for people who meet the criteria below: ?? A woman whose doctor determines both of these (based on her medical history and other findings): She's estrogen deficient AND She's at risk for osteoporosis ?? A person whose X-rays show possible osteoporosis, osteopenia, or vertebral fractures ?? A person taking prednisone or steroid-type drugs or is planning to begin this treatment ?? A person who has been diagnosed with primary hyperparathyroidism ?? A person who is being monitored to see if their osteoporosis drug therapy is working Prostate Cancer: Medicare Part B (Medical Insurance) covers: ?? Digital rectal exam: Once every 12 months ?? Prostate specific antigen (PSA) test: Once every 12 months ?? All men over 50 (beginning the day after your 50th birthday) with Part B are covered. Hepatitis C: Medicare covers one Hepatitis C screening test. Medicare also covers yearly repeat screening for certain people at high risk. ?? Those at high risk because they use or used illicit injection drugs. ?? Those who had a blood transfusion before 1991. ?? Those born between 3084-9009. Glaucoma: Medicare Part B (Medical Insurance) covers a glaucoma test once every 12 months for people at high risk for glaucoma. You're at high risk if one of these applies: ?? You have diabetes. ?? You have a family history of glaucoma. ?? You're and 50 or older. ?? You're and 65 or older. AAA: Medicare Part B (Medical Insurance) covers a one-time abdominal aortic aneurysm ultrasound for people who meet the criteria below: ?? You have a family history of abdominal aortic aneurysms. ?? You???re a man age 65 to 75 and have smoked at least 100 cigarettes in your lifetime. Lung Cancer: Medicare Part B (Medical Insurance) covers a lung cancer screening with Low Dose Computed Tomography(LDCT) once per year to those who meet ALL of these conditions: ?? They're 55-77. ?? They're asymptomatic (they don???t have signs or symptoms of lung cancer). ?? They're either a current smoker or have quit smoking within the last 15 years. ?? They have a tobacco smoking history of at least 30 ???pack years?? (an average of one pack a dayfor 30 years). UITER SPECIALIST documented in this encounter Plan of Treatment Not on filedocumented as of this encounter Visit Diagnoses Diagnosis Medicare annual wellness visit, subseque nt - Primary Counseling regarding advanced directives and goals of care documented in this encounter Care Teams Diesel Technology Instructor Relationship Specialty Start Date End Date None, Pcp PCP - General Branch Director 06/12/20 01/30/21 [address] [place] [address] documented as of this encounter
--- OUTSIDE RECORDS SUMMARY | 2022-05-06 13:06 | XMS_ITS | Encounter Summary ---
:[address] [facility] Address [address] [place] [address] Care Team Providers Name Role Phone Antonia Aldrich APRN, CNP Primary Care Provider [phone] Reason for Referral Consultation (Routine) - Closed Specialty Diagnoses / Procedures Referred By Contact Refer red To Contact Diagnoses Age-related osteoporosis without current pathological fracture Antonia Aldrich [place] - Referrals IVANA NAM [address] [place] [address] [place] [address] Fax: Referral ID Status Reason Start Date Expiration Date Visits Requ ested Visits Authorized [id number] Closed 06/29/2019 06/29/2020 1 1 Encounter Details Date Type Department Care Team Description 06/29/2019 Telephone [place] Antonia Aldrich, [address] IV[place]AM [place], [place] [address] [facility] [phone] [place], [place] [address] Social History Tobacco Use [...] this encounter Miscellaneous Notes Telephone Encounter - Antonia Aldrich APRN, IVANA - 06/29/2019 11:12 AM CDT The patient was notified of her DEXA scan, indicating osteoporosis, [facility]. Copy of the reports were mailed to the patient. documented in this encounter Plan of Treatment Scheduled Referrals Name Type Priority Associated Diagnoses Order [facility] Ambulatory External Outpatient Referral Routine Age-related O rdered: Referral osteoporosis without 019 current pathological fracture documented as of this encounter Visit Diagnoses Diagnosis Age-related osteoporosis without current pathological fracture - Primary documented in this encounter Care Teams Diabetes Educator Relationship Specialty Start Date End Date Antonia Aldrich APRN, VENDOR REPRESENTATIVES PCP - General 04/20/18 05/21/20 100 [place] [address] documented as of this encounter
--- OUTSIDE RECORDS SUMMARY | 2022-05-06 13:06 | XMS_ITS | Encounter Summary ---
:1935 Author Organization [facility] Address [address] [place] [address] Care Team Providers Name Role Phone Antonia Aldrich HADOOP ARCHITECT, FISHER SPONGE HOOKING Primary Care Provider [phone] Encounter Details Date Type Department Care Team Description 06/29/2019 Telephone Prasanth Hernandez Antonia Aldrich, [address] HADOOP ARCHITECT, IVANA Prasanth Hernandez [place] [address] 100 [facility] [phone] [place], [place] [address] Social History Tobacco Use [...] Telephone Encounter - Amber Jon RN - 06/29/2019 11:54 AM CDT Noted. Telephone Encounter - Antonia Aldrich APRN, CNP - 06/29/2019 11:52 AM CDT Yes, high dose, and the order will be placed when she is in the clinic, as it will not allow me to place. Kaleigh, Harman Telephone Encounter - Amber Jon RN - 06/29/2019 11:39 AM CDT Please order 2 flu vaccines as this will be outside of our protocol, change expected date to two consecutive days. Are we to give 1/2 dose of the high dose? Telephone Encounter - Amber Jon RN - 06/29/2019 11:38 AM CDT FYI, please schedule accordingly. Telephone Encounter - Antonia Aldrich APRN, CNP - 06/29/2019 11:11 AM CDT The patient will come in for a 1/2 dose of the influenza 2 consecutive days in a row, and she understands she will be charged twice. Just for you information. Thanks, Harman documented in this encounter Plan of Treatment Not on filedocumented as of this encounter Visit Diagnoses Not on filedocumented in this encounter Care Teams Mold Repair Technician Relationship Specialty Start Date End Date Antonia Aldrich APRN, CNP PCP - General 04/20/18 05/21/20 [address] [place] [address] documented as of this encounter
--- OUTSIDE RECORDS SUMMARY | 2022-05-06 13:06 | XMS_ITS | Encounter Summary ---
:1935 Author Organization [facility] Address [address] [place] [address] Care Team Providers Name Role Phone Antonia Aldrich APRN, ETHANOL MAINTENANCE MECHANIC Primary Care Provider Reason for Visit Reason Comments Medicare Annual Wellness Visit Subsequent Encounter Details Date Type Department Care Team Description 05/20/2019 Office [place] annual wellness [address] visit, subsequent (Primary [place] [address] Dx) [phone] Social History Tobacco Use Types Packs/Day Years [...] Sign Reading Time Taken Comments Blood Pressure 142/92 05/20/2019 10:27 AM CDT Pulse 78 05/20/2019 10:27 AM CDT Temperature 37 ??C (98.6 ??F) 05/20/2019 10:27 AM CDT Respiratory Rate 16 05/20/2019 10:27 AM CDT Oxygen Saturation 97% 05/20/2019 10:27 AM CDT Inhaled Oxygen Concentration - - Weight 71.8 kg (158 lb 4.6 oz) 05/20/2019 10:27 AM CDT Height 158 cm (5' 2.21) 05/20/2019 10:27 AM CDT Body Mass Index 28.76 05/20/2019 10:27 AM CDT documented in this encounter Progress Notes oRsa Wells LPN - 05/20/2019 10:40 AM CDT Annual Wellness Visit CARE TEAM / RESOURCES: Patient Care Team: Antonia Aldrich APRN, ETHANOL MAINTENANCE MECHANIC as PCP - General Eye Care: Dr. Sanders [place] [facility] [place] [facility]: Dr. Tay [place] Pharmacy: [facility] - [address] [address] [facility] - [address] [address] [facility]-[address] [facility] [address] Other: Visit Vitals BP (!) 142/92 (BP Location: Right arm, Patient Position: Sitting) Pulse 78 Temp 37 ??C (98.6 ??F) (Temporal) Resp 16 Ht 1.58 m (5' 2.21) Wt 71.8 kg (158 lb 4.6 oz) SpO2 97% BMI 28.76 kg/m?? Smoking Status Never Smoker BSA 1.78 m?? Allergies Allergen Reactions ??? Gluten Unknown H/O Celiac Disease ??? Miconazole Nausea And Vomiting MICONAZOLE NITRATE ??? Miconazole Nitrate ??? Nuts Other (see comments) deepaner listed no reaction ??? Peanut (Diagnostic) Hives Other reaction(s): Throat Swelling/Closing Outpatient Encounter Medications as of 05/20/2019 Medication Sig Dispense Refill ??? calcium citrate-vitamin D (CITRACAL+D) 315-200 MG-UNIT per tablet Take 2 tablets by mouth 1 (one) time each day ??? Cyanocobalamin (VITAMIN B 12 PO) Take 1 tablet by mouth 1 (one) time each day ??? cycloSPORINE (RESTASIS) 0.05 % ophthalmic emulsion ??? Dorzolamide HCl-Timolol Mal PF 22.3-6.8 MG/ML solution 1 drop ??? EPINEPHrine (EPIPEN 2-KRISTIN) 0.3 MG/0.3ML injection syringe ??? ferrous sulfate 325 (65 Fe) MG tablet Take 1 tablet by mouth 1 (one) time each day ? ? fexofenadine-pseudoephedrine (MING-D ALLERGY & CONGESTION) 60-120 MG per 12 hr tablet Take 1 tablet by mouth 2 (two) times a day 180 tablet 1 ??? fluticasone (FLONASE) 50 MCG/ACT nasal spray USE 2 SPRAYS NASALLY DAILY 48 g 3 ??? gabapentin (NEURONTIN) 300 MG capsule TAKE 1 CAPSULE IN THE MORNING AND 2 CAPSULES IN THE EVENING 270 capsule 3 ??? meclizine (ANTIVERT) 25 MG tablet Take 25 mg by mouth if needed ??? Multiple Vitamins-Minerals (MULTIVITAMIN ADULT PO) ??? nystatin (MYCOSTATIN) 581505 UNIT/ML suspension if needed ??? omeprazole (PriLOSEC) [address] capsule Take 1 capsule by mouth 1 (one) time each day ??? ondansetron (ZOFRAN) 4 MG tablet Take 4 mg by mouth if needed No facility-administered encounter medications on file as of 05/20/2019. Immunization History Administered Date(s) Administered ??? Hepatitis A 12/28/2001, 07/30/2006 ??? Hepatitis B 12/28/2001, 01/31/2002, 06/29/2006, 07/30/2006 ??? Hib (PRP-T) 02/01/2007 ??? Influenza (IM) Preservative Free 08/20/2009, 08/21/2009, 08/22/2009, 08/23/2009 ??? Influenza High Dose Preservative Free IM 07/10/2015, 09/23/2016, 08/26/2017, 08/27/2017, 08/10/2018, 08/11/2018 ??? Influenza TIV (IM) 08/02/2012, 07/26/2014, 08/03/2014 [...] Socioeconomic History ??? Marital status: Spouse name: None ??? Number of children: None ??? Years of education: None ??? Highest education level: None Occupational History ??? None Social Needs ??? Financial resource strain: None ??? Food insecurity: Worry: None Inability: None ??? Transportation needs: Medical: None Non-medical: None Tobacco Use ??? Smoking status: Never Smoker ??? Smokeless tobacco: Never Used Substance and Sexual Activity ??? Alcohol use: Yes ??? Drug use: Never ??? Sexual activity: None Lifestyle ??? Physical activity: Days per week: None Minutes per session: None ??? Stress: None Relationships ??? Social connections: Talks on phone: None Gets together: None Attends baptism service: None Active member of club or organization: None Attends meetings of clubs or organizations: None Relationship status: None ??? Intimate partner violence: Fear of current or ex partner: None Emotionally abused: None Physically abused: None Forced sexual activity: None Other Topics Concern ??? None Social History Narrative ??? None General Care Management Assessment completed with:: Patient Living arrangement:: Spouse Support system:: Family, Neighbors, Friends, Spouse Family conflict:: No Type of residence:: Private residence Home care services:: No Equipment used at home:: None Communication device:: No Financial problems:: No Transportation issues:: No Transportation means:: Regular car Bed or wheelchair confined:: No Diet:: Regular Inadequate nutrition:: No Exercise:: Yes Minutes per day:: 20 Times per week:: 3 Inadequate activity/exercise:: No Medication adherence problem:: No Experiencing side effects from current medications:: No History of falls in last 6 months:: No Difficulty keeping appointments:: No Family aware of the patient's advance care planning wishes:: No Methodist or spiritual beliefs that impact treatment:: No Chronic pain:: No Pain Assessment Scored: 0-No pain and location: Utilization / Navigation of Health Care Systems: Does not overuse the FastCare, Acute Care, eVisits or Emergency Room. PHQ-9 mental health screening performed. Scored: 0 TAYLOR-7 anxiety screening performed. Scored: 0 Mini-Cog test performed. Scored: 5 CAGE-AID test performed. BMI/weight management reviewed. BMI: Body mass index is 28.76 kg/m??. Declined referral to nutrition education for BMI greater than 30. Fall Risk Assessment performed. Scored: Tug time: Declines referral for Physical Therapy for fall risk. Colon Cancer Screening: Last done: Patient stated it was completed at [facility] 12/31/2006 Due: 2016 Breast Cancer Screening: Last done: 12/14/2017 Osteoporosis Screening: Last done: 06/10/2017 Prostate Cancer Screening: Last done: No results found for: PSA Hepatitis C Screening: Lab Results Component Value Date HEPCAB NON-REACTIVE 08/13/2015 Glaucoma Screening: Preformed at outside facility AAA Screening: Not indicated Lung Cancer Screening: Not indicated Findings: Everything for this patient is up to date, but the Colonoscopy. Checking on age as the patient believes that she is past the age. Will discuss with the provider. The following referral(s) were created: None. What [...] transfusion before 1991. ?? Those born between 1571-8193. Glaucoma: Medicare Part B (Medical Insurance) covers [...] of one pack a dayfor 30 years). documented in this encounter Plan of Treatment Not on filedocumented as of this encounter Visit Diagnoses Diagnosis Medicare annual wellness visit, subseque nt - Primary documented in this encounter Care Teams Naturopathic Doctor Relationship Specialty Start Date End Date Antonia Aldrich APRN, ETHANOL MAINTENANCE MECHANIC PCP - General 04/20/18 05/21/[address] [place] [address] [place] [id number] documented as of this encounter
--- OUTSIDE RECORDS SUMMARY | 2022-05-06 13:06 | XMS_ITS | Encounter Summary ---
:1935 Author Organization [facility] Address [address] [place] [address] Care Team Providers Name Role Phone Antonia Aldrich APRN, CURRICULUM DEVELOPMENT COORDINATOR Primary Care Provider [phone] Encounter Details Date Type Department Care Team Description 11/16/2019 Orders Only Prasanth Hernandez Antonia Aldrich Onychomycosis (Primary [address] M, IVANA NAM Dx) [place], [place] 100 [facility] [address] [place] [address] Social History Tobacco Use Types Packs/Day Years [...] as of this encounter Visit Diagnoses Diagnosis Onychomycosis - Primary Dermatophytosis of nail documented in this encounter Care Teams Machine Joiner Cementer Relationship Specialty Start Date End Date Antonia Aldrich APRN, CURRICULUM DEVELOPMENT COORDINATOR PCP - General 04/20/18 05/21/20 100 [facility] [place] [id number] documented as of this encounter
--- OUTSIDE RECORDS SUMMARY | 2022-05-06 13:06 | XMS_ITS | Encounter Summary ---
:1935 Author Organization [facility] Address [address] [place] [address] Care Team Providers Name Role Phone Antonia Aldrich APRN, PARACHUTE MARKER Primary Care Provider [phone] Reason for Visit Reason Onset Date Comments Fungus med refill 11/14/2019 Encounter Details Date Type Department Care Team Description 11/14/2019 Telephone [place] Antonia Aldrich, Fungus med refill [address] [place], [place], [place] [address] [address] [phone] [place], [place] [address] Social History Tobacco Use [...] Telephone Encounter - Rosa Wells LPN - 11/15/2019 4:14 PM CST [place] HAT BODY MAKER Telephone Encounter - Faviola Ivy - 11/15/2019 4:12 PM CST Pt returned call. Pt was in for lab work today. HAT BODY MAKER Telephone Encounter - Rosa Wells LPN - 11/15/2019 10:45 AM CST LMTC HAT BODY MAKER Telephone Encounter - Rosa Wells LPN - 11/14/2019 11:20 AM CST LMTC HAT BODY MAKER Telephone Encounter - Antonia Aldrich APRN, PARACHUTE MARKER - 11/14/2019 11:05 AM TOP HAT BODY MAKER Can the patient return for a liver panel? This is been placed. Thanks Harman HAT BODY MAKER Telephone Encounter - Amber Jon RN - 11/14/2019 10:52 AM CST Please advise. HAT BODY MAKER Telephone Encounter - Faviola Ivy - 11/14/2019 10:19 AM CST Pt called wondering if Harman Aldrich will send a refill of her fungus medication to [facility] pharmacy.Please call Pt's cell at [phone] to advise. HAT BODY MAKER documented in this encounter Plan of Treatment Not on filedocumented as of this encounter Visit Diagnoses Not on filedocumented in this encounter Care Teams Gelatin Powder Mixer Relationship Specialty Start Date End Date Antonia Aldrich, EXTERNAL GRINDER TENDER, PARACHUTE MARKER PCP - General 04/20/18 05/21/20 [address] [facility] [place] [address] documented as of this encounter
--- OUTSIDE RECORDS SUMMARY | 2022-05-06 13:06 | XMS_ITS | Encounter Summary ---
:1935 Author Organization [facility] Address [address] [place] [address] Care Team Providers Name Role Phone Antonia Aldrich DOOR TO DOOR SALESMAN, RELIGIOUS HEALER Primary Care Provider [phone] Encounter Details Date Type Department Care Team Description 10/31/2019 Telephone Prasanth Hernandez Antonia Aldrich, [address] DOOR TO DOOR SALESMAN, [place] Prasanth Hernandez [place] [address] [address] [phone] [place], [place] [address] Social History Tobacco Use [...] Notes Telephone Encounter - Faviola Ivy - 10/31/2019 9:17 AM CST Rx faxed as requested. ICATION INTEGRATION ENGINEER Telephone Encounter - Rosa Wells LPN - 10/31/2019 8:48 AM CST Please fax the [place] prescription to [facility] ICATION INTEGRATION ENGINEER documented in this encounter Plan of Treatment Not on filedocumented as of this encounter Visit Diagnoses Not on filedocumented in this encounter Care Teams Regional Account Executive Relationship Specialty Start Date End Date Antonia Aldrich APRN, RELIGIOUS HEALER PCP - General 04/20/18 05/21/[address] [place] [address] [place] [id number] documented as of this encounter
--- OUTSIDE RECORDS SUMMARY | 2022-05-06 13:06 | XMS_ITS | Encounter Summary ---
:1935 Author Organization [facility] Address [address] [place] [address] Care Team Providers Name Role Phone Antonia Aldrich CUSTODIAL SUPERVISOR, LICENSED BONDSMAN Primary Care Provider [phone] Encounter Details Date Type Department Care Team Description 11/14/2019 Orders Only Nikhil Hernandez Antonia Aldrich, Medication monitoring [address] [place] encounter (Primary [place] [address] [place]x) [address] [place] [address] Social History Tobacco Use Types Packs/Day Years [...] filedocumented as of this encounter Results (ABNORMAL) Liver panel (11/15/2019 1:09 PM STORE MANAGER) Analysis Performed At Patho logist Time Signature Total Protein 7.4 6.3 - 8.2 11/16/2019 [place] g/dL 1:40 PM [facility] Albumin, Serum 4.3 3.5 - 5.0 11/16/2019 [place] g/dL 1:40 PM [facility] Total Bilirubin <0.7 0.1 - 1.0 11/16/2019 [place] mg/dL 1:40 PM [facility] Bilirubin, <0.1 0.0 - 0.3 11/16/2019 [place] Direct mg/dL 1:40 PM [facility] AST 54 (H) 8 - 43 U/L 11/16/2019 [place] 1:40 PM [facility] Alkaline 70 38 - 128 11/16/2019 [place] Phosphatase U/L 1:40 PM [facility] ALT (SGPT) 90 (H) 0 - 34 U/L 11/16/2019 [place] 1:40 PM [facility] Specimen Anatomical Collection Method Collection Time Receive d Time (Source) Location / / Volume Laterality Blood (Blood, 11/15/2019 1:09 PM 11/16/19 1:09 Venous) STORE MANAGER PM STORE MANAGER Antonia Aldrich APRN LICENSED BONDSMAN LAB BLOOD ORDERABLES Performing Organization Address City/State/ZIP Code Phon e Number [facility] [address] [place] [address] documented in this encounter Visit Diagnoses Diagnosis Medication monitoring encounter - Primar y Encounter for therapeutic drug monitorin g documented in this encounter Care Teams Preschool Principal Relationship Specialty Start Date End Date Antonia Aldrich APRN, LICENSED BONDSMAN PCP - General 04/20/18 05/21/20 100 [place] [address] documented as of this encounter
--- OUTSIDE RECORDS SUMMARY | 2022-05-06 13:06 | XMS_ITS | Encounter Summary ---
:1935 Author Organization [facility] Address [address] [place] [address] Care Team Providers Name Role Phone Antonia Aldrich APRN, HAND LOOM WEAVER Primary Care Provider Reason for Visit Reason Comments lesions chest x 2 Nail Problem fungus-taking Lamisil x 3 mo nths, asking for refill Encounter Details Date Type Department Care Team Description 01/11/2020 Office Visit [place] Kaitlynn Romero Keratosis, inflamed seborrhe ic (Primary Dx); [address] [place] Onychomycosis; [place], [place] Elevated li aaron function tests [id number] Social History Tobacco Use Types Packs/Day Years [...] / COVID-19? documented as of this encounter Last Filed Vital Signs Vital Sign Reading Time Taken Comments Blood Pressure 138/62 01/11/2020 10:01 AM CDT Pulse 76 01/11/2020 10:01 AM CDT Temperature 36.8 ??C (98.2 ??F) 01/11/2020 10:01 AM CDT Respiratory Rate 20 01/11/2020 10:01 AM CDT Oxygen Saturation 96% 01/11/2020 10:01 AM CDT Inhaled Oxygen Concentration - - Weight 71.8 kg (158 lb 4.6 oz) 01/11/2020 10:01 AM CDT Height 159.4 cm (5' 2.76) 01/11/2020 10:01 AM CDT Body Mass Index 28.26 01/11/2020 10:01 AM CDT documented in this encounter Progress Notes Kaitlynn Romero MD - 01/11/2020 10:00 AM CDT Estab Patient Visit Subjective Patient ID: Kathryn Leon is a 84 y.o. female. Chief Complaint Patient presents with ??? lesions chest x 2 ??? Nail Problem fungus-taking Lamisil x 3 months, asking for refill HPI Patient is an 84-year-old female who presents for concerns of skin lesions on her chest that have been present for the last few months. Initially, they were raised bumps similar to her age spots but 1 over the left side has been irritated with some reddening recently. She admits she has been scratching at this area. She has had cryotherapy to benign skin lesions in the past. She also requests a refill of Lamisil for her fungal toenails. She tells me that she took 3 months of this and had noticed an improvement but not complete resolution of her thickened toenails. She requests a renewal of this. She understands that this medication can cause/be associated with liver dysfunction. She has had long standing at least 4 years duration of mildly elevated liver function tests of unclear etiology. It appears that she has had this checked as recently as November of this year after starting the Lamisil and there was no worsening of her LFTs. She does not consume alcohol but eats a fairly high fat diet and indulges in sweets regularly. She has had imaging of the abdomen in the pastthat showed fatty liver. Current Outpatient Medications on File Prior to Visit Medication Sig Dispense Refill ??? Alendronate Sodium (FOSAMAX PO) Take 70 mg by mouth per week ??? calcium citrate-vitamin D (CITRACAL+D) 315-200 MG-UNIT [...] 1 (one) time each day Glaucoma ??? ferrous sulfate 325 (65 Fe) MG tablet Take 1 tablet by mouth 1 (one) time each day ? ? fexofenadine-pseudoephedrine (MING-D ALLERGY & CONGESTION) 60-120 MG per 12 hr tablet Take 1 tablet by mouth 2 (two) times a day 180 tablet 5 ??? fluticasone (FLONASE) 50 MCG/ACT nasal spray USE 2 SPRAYS NASALLY DAILY 48 g 4 ??? Multiple Vitamins-Minerals (MULTIVITAMIN ADULT PO) ??? omeprazole (PriLOSEC) [address] capsule Take 1 capsule (40 mg total) by mouth 1 (one) time each day 90 capsule 3 ??? terbinafine (LamISIL) 250 MG tablet Take 250 mg by mouth 1 (one) time each day ??? EPINEPHrine (EPIPEN 2-KRISTIN) 0.3 MG/0.3ML injection syringe Inject 0.3 mL (0.3 mg total) into the thigh if needed for anaphylaxis. Call 911 after use. NUT allergy No current facility-administered medications on file prior to visit. Gluten; Miconazole; Miconazole nitrate; Nuts; and Peanut (diagnostic) The following portions of the patient's chart were reviewed in this encounter and updated as appropriate: Tobacco Allergies Meds Review of Systems See HPI. Objective Physical Exam Blood pressure 138/62, pulse 76, temperature 36.8 ??C (98.2 ??F), temperature source Temporal, resp.rate 20, height 1.594 m (5' 2.76), weight 71.8 kg (158 lb 4.6 oz), SpO2 96 %. Generally, well-appearing not in acute distress. Patient has a approximately half centimeter circular raised seborrheic keratosis lesion on her upperleft chest. She has some smaller ones in the mid and right upper chest. The left upper chest lesion has some surrounding mild erythema. Thickened great toenails. Assessment/Plan Diagnoses and all orders for this visit: Keratosis, inflamed seborrheic Onychomycosis - terbinafine (LamISIL) 250 MG tablet; Take 1 tablet (250 mg total) by mouth 1 (one) time each day Elevated liver function tests Discussed risks and benefits of liquid nitrogen to inflamed seborrheic keratoses. Informed her that these are benign lesions but because of the irritation, recommend treatment. She gave consent for procedure. 3 freeze thaw cycles of liquid nitrogen applied to irritated seborrheic keratosis of upper lef t chest. Tolerated procedure well. I renewed her Lamisil but discussed the elevated liver function test. These did not worsen after shehad been on the terbinafine. I reviewed her history briefly and looked at her imaging test through [facility] including CT and liver ultrasound. She had been identified as having fatty liver. Discussed recommendation to repeat imaging at some point but because of current pandemic, she is hesitant to go to [place]. I think it is reasonable for her to wait on this testing. She will follow-up in 1 month time for recheck. There are no Patient Instructions on file for this visit. documented in this encounter Plan of Treatment Not on filedocumented as of this encounter Visit Diagnoses Diagnosis Keratosis, inflamed seborrheic - Primary Inflamed seborrheic keratosis Onychomycosis Dermatophytosis of nail Elevated liver function tests Other abnormal blood chemistry documented in this encounter Care Teams Animal Stunner Relationship Specialty Start Date End Date Antonia Aldrich, ROENTGENOLOGIST, HAND LOOM WEAVER PCP - General 04/20/18 05/21/20 [address] [facility] [place] [place] [address] documented as of this encounter
--- OUTSIDE RECORDS SUMMARY | 2022-05-06 13:06 | XMS_ITS | Encounter Summary ---
:1935 Author Organization [facility] Address [address] [place] [address] Care Team Providers Name Role Phone Antonia Aldrich APRN, CNP Primary Care Provider [phone] Reason for Visit Reason Comments Follow-up [facility] FOLLOW UP Encounter Details Date Type Department Care Team Description 05/20/2019 Office Visit [place] Antonia Aldrich Follow up (Primary Dx); [address] [place], [place] Oral thrush; [place], [place] [address] Gastroesophageal reflux disease, esophag itis presence not specified [address] [place], [place] [phone] [address] Social History Tobacco Use Types Packs/Day Years [...] Time Taken Comments Blood Pressure 142/92 05/20/2019 10:24 AM CDT Pulse 78 05/20/2019 10:24 AM CDT Temperature 37 ??C (98.6 ??F) 05/20/2019 10:24 AM CDT Respiratory Rate 16 05/20/2019 10:24 AM CDT Oxygen Saturation 97% 05/20/2019 10:24 AM CDT Inhaled Oxygen Concentration - - Weight 71.8 kg (158 lb 4.6 oz) 05/20/2019 10:24 AM CDT Height 158 cm (5' 2.21) 05/20/2019 10:24 AM CDT Body Mass Index 28.76 05/20/2019 10:24 AM CDT documented in this encounter Patient Instructions Patient InstructionsChharshad Aldrich APRN, CNP - 05/20/2019 10:40 AM CDT Nystatin swish and swallow as directed Follow up with opthalmology. documented in this encounter Progress Notes Antonia Aldrich APRN, CNP - 05/20/2019 10:40 AM CDT Estab Patient Visit Subjective Patient ID: Kathryn Leon is a 84 y.o. female presenting for the following concerns. Chief Complaint Patient presents with ??? Follow-up [facility] FOLLOW UP HPI: The patient is a pleasant 84-year-old female presenting ambulatory to the clinical setting today in follow-up for recent hospitalization at [facility] in [place]. The patient was initially evaluated in the emergency room on 05/12/2019, was admitted under observation, then admitted on 05/13/2019, and discharged on the May 14, with the following diagnosis: bilateral benign positional vertigo. The patient received intravenous corticosteroids, as well as evaluation by physical therapy for vestibular rehabilitation. The patient reports her symptoms improved before discharge, and she was ambulatory with a walker. The patient was discharged on meclizine, Zofran, and had a followed-up appointmentwith physical therapy for vestibular rehabilitation, and she continues to slowly improve. The patient has a history of benign positional vertigo, but has never experienced an episode this severe. The patient reports she received new prescription eyeglasses, about 3 months ago, and has been having trouble adjusting to them. The patient reports her stigmatism worsened, as it went from 25 to 100. The patient reports she has had her eyes re-evaluated at [facility], and has a follow-up appointment scheduled. The patient reports she was on a trip in the car, continuously looking down at a map, when her symptoms started. She feels riding in a car, with her new prescription eye glas ses's, and looking up and down at the map caused her symptoms, and contributed to the severity of the episode. She reports by the time she returned home, she could not get out of the car, and her called 911. The patient reports she was nauseous, with dry heaves, lightheaded, dizzy, and could not even open her eyes, and as a matter of fact, she did not open her eyes for 2 days following the onset of her symptoms. The patient reports since she was discharged from the hospital her symptoms haveimproved, but she remains careful how she turns her head, does not turn fast, does not bend over, and minimizes looking down or up. The patient has resumed wearing her old eye glasses, which feels morecomfortable. No history of hypertension. The patient weaned off of her gabapentin slowly, having her last dose last Thursday, days before her vertigo started, but she feels her eyes contributed to her symptoms, and not discontinuing the medication. The patient does not feel much different after being off the gabapentin, other than she has a more pronounced numbness in her left foot at night. The patient reports during her hospitalization she developed oral thrush. ROS: MOUTH: The patient reports she developed oral thrush during her hospitalization. EYES: The patient feels her new eyeglasses, worsening astigmatism, and reading a map in the car may have caused and/or contributed to her severe episode of benign positional vertigo. GASTROINTESTINAL: The patient was certainly nauseous from her symptoms. MUSCULOSKELETAL: The patient has discontinued the gabapentin, with an increased numbness sensation in her left foot at bedtime. NEUROLOGICAL: See HPI. The patient has a history of benign positional vertigo, and had an episode sosevere, she was admitted to the hospital, and is slowly improving. The following portions of the patient's chart were reviewed in this encounter and updated as appropriate: Tobacco Allergies Meds Problems Med Hx Surg Hx Fam Hx Current Outpatient Medications: ??? calcium citrate-vitamin D (CITRACAL+D) 315-200 MG-UNIT per tablet, Take 2 tablets by mouth 1 (one) time each day, Disp: , Rfl: ??? Cyanocobalamin (VITAMIN B 12 PO), Take 1 tablet by mouth 1 (one) time each day, Disp: , Rfl: ??? cycloSPORINE (RESTASIS) 0.05 % ophthalmic emulsion, , Disp: , Rfl: ??? Dorzolamide HCl-Timolol Mal PF 22.3-6.8 MG/ML solution, 1 drop, Disp: , Rfl: ??? EPINEPHrine (EPIPEN 2-KRISTIN) 0.3 MG/0.3ML injection syringe, , Disp: , Rfl: ??? ferrous sulfate 325 (65 Fe) MG tablet, Take 1 tablet by mouth 1 (one) time each day, Disp: , Rfl: ? ? fexofenadine-pseudoephedrine (MING-D ALLERGY & CONGESTION) 60-120 MG per 12 hr tablet, Take 1 tablet by mouth 2 (two) times a day, Disp: 180 tablet, Rfl: 1 ??? fluticasone (FLONASE) 50 MCG/ACT nasal spray, USE 2 SPRAYS NASALLY DAILY, Disp: 48 g, Rfl: 3 ??? Multiple Vitamins-Minerals (MULTIVITAMIN ADULT PO), , Disp: , Rfl: ??? nystatin (MYCOSTATIN) 436532 UNIT/ML suspension, Take 5 mL (500,000 Units total) by mouth 4 (four) times a day Swish in mouth and swallow., Disp: 280 mL, Rfl: 1 ??? omeprazole (PriLOSEC) [address] capsule, Take 1 capsule (40 mg total) by mouth 1 (one) time each day, Disp: 90 capsule, Rfl: 3 ??? ondansetron (ZOFRAN) 4 MG tablet, Take 4 mg by mouth if needed, Disp: , Rfl: Objective Visit Vitals BP (!) 142/92 (BP Location: Right arm, Patient Position: Sitting) Pulse 78 Temp 37 ??C (98.6 ??F) (Temporal) Resp 16 Ht 1.58 m (5' 2.21) Wt 71.8 kg (158 lb 4.6 oz) SpO2 97% BMI 28.76 kg/m?? Smoking Status Never Smoker BSA 1.78 m?? GENERAL: The patient is alert, orientated, and in no apparent distress. MOUTH: Examining the patient's tongue, there is white coating towards the posterior aspect. HEENT: Head normocephalic. Eyes - pupils round and reactive to light. EOMs intact without nystagmus today, and she tolerated this examination today. CARDIOVASCULAR: Blood pressure rechecked in the right arm, 132/80, in the left arm, 136/80. NEUROLOGICAL: The patient is alert and oriented to person, place, time, and situation. The patient is ambulating well, cautiously keeping her head straight, and moving her shoulders when talking, appearing to minimize head position changes. DIAGNOSTICS: None. Assessment/Plan Kathryn was seen today for follow-up. Diagnoses and all orders for this visit: Follow up (Primary) Oral thrush - nystatin (MYCOSTATIN) 459734 UNIT/ML suspension; Take 5 mL (500,000 Units total) by mouth 4 (four)times a day Swish in mouth and swallow. Gastroesophageal reflux disease, esophagitis presence not specified - omeprazole (PriLOSEC) [address] capsule; Take 1 capsule (40 mg total) by mouth 1 (one) time each day Discussed the plan of care with the patient. The patient has an eye evaluation, with an officer captain scheduled at [facility]. The patient will continue to do her vestibular exercises athome. The patient will take the nystatin swish and swallow as directed. The patient requested to have her Prilosec renewed today. The patient agrees and understands this plan of care. Antonia Aldrich APRN, [place] documented in this encounter Plan of Treatment Not on filedocumented as of this encounter Visit Diagnoses Diagnosis Follow up - Primary Oral thrush Candidiasis of mouth Gastroesophageal reflux disease, esophag itis presence not specified documented in this encounter Care Teams And Taxi Instructor Bus Trolley Relationship Specialty Start Date End Date Antonia Aldrich APRN, CHECK PROCESSING CLERK PCP - General 04/20/18 05/21/20 [address] [facility] [place] [address] documented as of this encounter
--- OUTSIDE RECORDS SUMMARY | 2022-05-06 13:06 | XMS_ITS | Encounter Summary ---
:1935 Author Organization [facility] Address [address] [place] [address] Care Team Providers Name Role Phone Antonia Aldrich APRN, CNP Primary Care Provider [phone] Encounter Details Date Type Department Care Team Description 11/15/2019 Travel Social History Tobacco Use Types Packs/Day [...] filedocumented in this encounter Care Teams Assistant Produce Manager Relationship Specialty Start Date End Date Antonia Aldrich APRN, PLANT ENGINEERING MANAGER PCP - General 04/20/18 05/21/20 100 [facility] [place] [address] documented as of this encounter
--- OUTSIDE RECORDS SUMMARY | 2022-05-06 13:06 | XMS_ITS | Encounter Summary ---
:1935 Author Organization [facility] Address [address] [place] [address] Care Team Providers Name Role Phone Antonia Aldrich APRN, CNP Primary Care Provider [phone] Reason for Visit Reason Comments Ear Drainage Encounter Details Date Type Department Care Team Description 10/13/2019 Office Visit Prasanth Hernandez Antonia Aldrich in auditory canal on examination (Primary Dx); [address] M, [place] Onychomycosis; [place], [place] [address] Skin lesions; [address] [place] [address] Medication monitoring encounter; [phone] Screenin g for hyperlipidemia; Screening for d iabetes mellitus; Screening, anem ia, deficiency, iron Social History Tobacco Use Types Packs/Day Years [...] Sign Reading Time Taken Comments Blood Pressure 142/82 10/13/2019 10:38 AM MARKETING ADMIN Pulse 86 10/13/2019 10:38 AM MARKETING ADMIN Temperature 35.7 ??C (96.3 ??F) 10/13/2019 10:38 AM MARKETING ADMIN Respiratory Rate 16 10/13/2019 10:38 AM MARKETING ADMIN Oxygen Saturation 96% 10/13/2019 10:38 AM MARKETING ADMIN Inhaled Oxygen Concentration - - Weight 72.6 kg (160 lb) 10/13/2019 10:38 AM MARKETING ADMIN Height 160 cm (5' 2.99) 10/13/2019 10:38 AM MARKETING ADMIN Body Mass Index 28.35 10/13/2019 10:38 AM MARKETING ADMIN documented in this encounter Patient Instructions Patient InstructionsChharshad Aldrich APRN, CNP - 10/13/2019 10:40 AM MARKETING ADMIN Return for fasting labs ETING ADMIN documented in this encounter Progress Notes Antonia Aldrich APRN, CNP - 10/13/2019 10:40 AM CST Estab Patient Visit Subjective Patient ID: Kathryn Leon is a 84 y.o. female presenting for the following concerns. Chief Complaint Patient presents with ??? Ear Drainage HPI: The patient is a pleasant 84 y.o. year old female presenting ambulatory to the clinical setting concerned she has a cerumen impaction bilaterally. The patient reports she has noticed a popping, draining sensation in both of her ears since the beginning of August, which is not improving. The patient reports there is no drainage from the ear canals, but it feels as if there should be. The patient hashad gradual decreased hearing and likely bilaterally. The patient does have a history of seasonal allergies is on Ming and Flonase which she takes consistently. No increased nasal congestion nor nasal drainage. The patient had similar symptoms a year ago, had cerumen removed from her ears, with resolution of her symptoms. The patient reports she redeveloped a fungal infection in her toe nails, on both feet, and is requesting to restart Lamisil, which was effective last year, after a short course, duration. The patient???s liver enzymes were continually monitored, without fluctuations while on the medication. ROS: INTEGUMENTARY: See HPI. The patient has a history of nail fungal infections, with improvement in hersymptoms when taking Lamisil, which she has tolerated. The patient has lesions on her left cheek, which she feels are age spots, and are not necessarily changing in nature. She is uncertain how long they have been there, but they do no itch, nor bleed. No history of skin cancer. EARS: See HPI. The patient has a sensation of ears are draining, popping, with no drainage present, with possible decreased hearing bilaterally, which seems gradual. The patient feels her symptoms are consistent with a cerumen impaction. NOSE: See HPI. The patient has a history of nasal congestion and nasal drainage and consistently takes Ming and Flonase with control of her symptoms. GASTROINTESTINAL: See HPI. The patient continues to have intermittent left lower quadrant abdominal pain, which she feels may be related to constipation and/or exposure to gluten. The patient reports her symptoms resolve rather quickly and typically after a bowel movement. MUSCULOSKELETAL: See HPI. 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 The following portions of the patient's chart were reviewed in this encounter and updated as appropriate: Tobacco Allergies Meds Problems Med Hx Surg Hx Fam Hx Current Outpatient Medications: ??? Alendronate Sodium (FOSAMAX PO), Take 70 mg by mouth per week, Disp: , Rfl: ??? calcium citrate-vitamin D [...] solution, 1 drop, Disp: , Rfl: ??? ferrous sulfate 325 [...] day, Disp: 90 capsule, Rfl: 3 ??? EPINEPHrine (EPIPEN 2-KRISTIN) 0.3 MG/0.3ML injection syringe, , Disp: , Rfl: ??? terbinafine (LAMISIL) 250 MG tablet, Take 1 tablet (250 mg total) by mouth 1 (one) time each dayfor 14 days, Disp: 30 tablet, Rfl: 0 Objective Visit Vitals BP 142/82 (BP Location: Left arm, Patient Position: Sitting) Pulse 86 Temp (!) 35.7 ??C (96.3 ??F) (Temporal) Resp 16 Ht 1.6 m (5' 2.99) Wt 72.6 kg (160 lb) SpO2 96% BMI 28.35 kg/m?? Smoking Status Never Smoker BSA 1.8 m?? GENERAL: The patient is alert, orientated, and in no apparent distress. HEENT: Head normocephalic. Ears -cerumen present in both ear canals, not necessarily impacted, nursing did ear wash, the patient felt better after the ear wash, the ears were re-examined, normal canals, normal pearly gregory TMs with slight cerumen debris remaining in the right ear, which nursing was unable to remove. INTEGUMENTARY: Examined the toenails on the right foot only, with whitish discolored nails, particular the right great toenail. The first MTP joint remained red, but the patient reports her pain and symptoms of gout were improving at this time. The patient has 2 discrete skin colored, stuck on lesionson her left facial area, consistent with actinic keratosis. DIAGNOSTICS: Liver enzymes, lipid panel, basic metabolic panel, and CBC with differential. Assessment/Plan Encounter Diagnoses Name Primary? Cerumen in auditory canal on examination Yes ??? Onychomycosis ??? Skin lesions ??? Medication monitoring encounter ??? Screening for hyperlipidemia ??? Screening for diabetes mellitus ??? Screening, anemia, deficiency, iron Discussed the plan of care with the patient. The patient will notify me if her ear symptoms persist.The patient will start Lamisil 250 mg daily quantity 30 tablets, and she agrees to return for fasting labs, including baseline liver enzymes. The patient is due from screening labs, including a CBC with diff, BMP, and lipid panel, and she agrees to have completed with her liver enzymes. The patient can monitor the facial lesions and if they change in nature, she should have them re-evaluated. The patient agrees and understands this plan of care. Antonia Aldrich APRN, COOK [place]A ETING ADMIN Anne Marie Arango MA - 10/13/2019 10:40 AM CSTAssociated Order(s): Ear cerumen removal Post-Procedure Diagnose(s): Impacted cerumen of both ears Nurse Procedure Note Ear cerumen removal Date/Time: 10/13/2019 11:26 AM Performed by: Anne Marie Arango MA Authorized by: Antonia Aldrich APRN, COOK [place]ILLA Consent: Consent obtained: Verbal Consent given by: Patient Risks discussed: Pain and dizziness Procedure details: Location: L ear and R ear Procedure type: irrigation Post-procedure details: Hearing quality: Normal Patient tolerance of procedure: Tolerated with difficulty Comments: Patient had a bilateral ear wash. Cerumen impacting both ears. Started with patient's right ear, completed one wash with minimal cerumen removed. Patient had increased pain. Discontinued right ear. Completed left ear with minimal cerumen removed. Discussed with provider. ETING ADMIN documented in this encounter Plan of Treatment Not on filedocumented as of this encounter Procedures Procedure Name Priority Date/Time Associated Diagnosis Comme nts EAR CERUMEN REMOVAL Routine 10/13/2019 10:40 AM Cerumen in aud itory Results for this MARKETING ADMIN canal on examination procedu re are in the results section. documented in this encounter Results Lipid panel (10/17/2019 8:02 AM MARKETING ADMIN) athologist Signature Cholesterol 159 0 - 199 10/17/2019 [facility] [place] mg/dL 12:58 PM [facility] Comment: Recommended by National Cholesterol Education Program (ATP III) -------- Cholesterol Ranges -------- <200 ? Desirable 200-239 ? Borderline high >=240 ? High Triglycerides 122 0 - 149 mg/dL 10/17/2019 12:58 PM [facility] Comment: -------- TRIG Ranges -------- <150 ?Normal 150-199 ? Borderline high 200-499 ? High >=500 ? Very high HDL 44 40 - 60 mg/dL 10/17/2019 12:58 PM [facility] Comment: -------- HDL Ranges -------- <40 ?Low 40-59 ?Normal >=60 ? Optimal LDL Calculated 91 0 - 99 mg/dL 10/17/2019 12:58 PM [facility] Comment: -------- LDL Ranges -------- <100 ? Optimal 100-129 ?Near optimal/above op timal 130-159 ?Borderline high 160-189 ?High >=190 ?Very high Fasting? Yes 10/17/2019 8:06 AM [facility] Specimen Anatomical Collection Method Collection Time Receive d Time (Source) Location / / Volume Laterality Blood 10/17/2019 8:02 AM 0 MARKETING ADMIN 12:15 PM MARKETING ADMIN Antonia Aldrich FISH TENDER, COOK TORTILLA LAB BLOOD ORDERABLES Performing Organization Address City/State/ZIP Code Phon e Number [facility] [address] [place] [address] (ABNORMAL) CBC Branch Off w/Diff (10/17/2019 8:02 AM MARKETING ADMIN) [facility] Method Time Signature WBC 3.5 3.5 - 10.5 10/17/2019 [facility] K/uL 8:08 AM MARKETING ADMIN [place] RBC 4.28 3.90 - 10/17/2019 [facility] 5.00 M/uL 8:08 AM MARKETING ADMIN [place] Hemoglobin 13.2 12.0 - 10/17/2019 [facility] 15.5 g/dL 8:08 AM MARKETING ADMIN [place] Hematocrit 38.7 35.0 - 10/17/2019 [facility] 44.0 % 8:08 AM MARKETING ADMIN [place] Platelets 147 (L) 150 - 450 10/17/2019 [facility] K/uL 8:08 AM MARKETING ADMIN [place] MCV 90.4 81.6 - 10/17/2019 [facility] 98.3 fL 8:08 AM MARKETING ADMIN [place] MCH 30.8 26.0 - 10/17/2019 [facility] 32.0 pg 8:08 AM MARKETING ADMIN [place] MCHC 34.1 32.0 - 10/17/2019 [facility] 36.0 g/dL 8:08 AM MARKETING ADMIN [place] RDW 12.7 11.9 - 10/17/2019 [facility] 15.5 % 8:08 AM MARKETING ADMIN [place] Lymphocytes % 37.4 18.0 - 10/17/2019 [facility] 45.0 % 8:08 AM MARKETING ADMIN [place] Mid-size Cells 13.5 (H) 3.3 - 10.1 10/17/2019 [facility] % 8:08 AM MARKETING ADMIN [place] Granulocytes/Josefa 49.1 45.8 - 10/17/2019 [facility] trophils 73.7 % 8:08 AM MARKETING ADMIN [place] Lymphocytes 1.3 0.9 - 2.9 10/17/2019 [facility] Absolute K/uL 8:08 AM MARKETING ADMIN [place] MIDS Absolute 0.5 0.2 - 0.8 10/17/2019 [facility] K/uL 8:08 AM MARKETING ADMIN [place] Granulocytes/Josefa 1.7 (L) 2.1 - 8.7 10/17/2019 [facility] [place] trophils K/uL 8:08 AM MARKETING ADMIN [place] Absolute Specimen Anatomical Collection Method Collection Time Receive d Time (Source) Location / / Volume Laterality Blood 10/17/2019 8:02 AM 0 8:06 MARKETING ADMIN AM MARKETING ADMIN Antonia Aldrich APRN, CNP LAB BLOOD ORDERABLES Performing Organization Address [facility] Phon e Number [facility] [place] [address] [place] [address] (ABNORMAL) Basic metabolic panel (10/17/2019 8:02 AM MARKETING ADMIN) P athologist Signature Sodium 142 135 - 145 10/17/2019 [facility] mmol/L 8:17 AM MARKETING ADMIN [place] Potassium 3.6 3.5 - 5.1 10/17/2019 [facility] [place] mmol/L 8:17 AM MARKETING ADMIN [place] Comment: . Chloride 101 98 - 107 mmol/L 10/17/2019 8:17 AM MARKETING ADMIN [facility] [place] Comment: . CO2 31 (H) 22 - 29 mmol/L 10/17/2019 8:17 AM MARKETING ADMIN [facility] [place] Comment: . Creatinine 0.8 0.4 - 1.2 mg/dL 10/17/2019 8:17 AM MARKETING ADMIN [facility] [place] Comment: . BUN 18 5 - 25 mg/dL 10/17/2019 8:17 AM MARKETING ADMIN [facility] [place] Comment: . Glucose 111 (H) 70 - 100 mg/dL 10/17/2019 8:17 AM MARKETING ADMIN [facility] [place] Calcium, Total,S 9.4 8.4 - 10.2 mg/dL 10/17/2019 8:17 AM MARKETING ADMIN [facility] [place] Comment: . Specimen Anatomical Collection Method Collection Time Receive d Time (Source) Location / / Volume Laterality Blood 10/17/2019 8:02 AM 0 8:06 MARKETING ADMIN AM MARKETING ADMIN Antonia Aldrich APRN, CNP LAB BLOOD ORDERABLES Performing Organization Address City/[facility]/ZIP [facility] Phon e Number [facility] [place] [address] [place] [address] (ABNORMAL) Liver panel (10/17/2019 8:02 AM MARKETING ADMIN) Analysis Performed At Patho logist Time Signature Total Protein 6.5 6.3 - 8.2 10/17/2019 [facility] g/dL 12:58 PM [facility] Albumin, Serum 3.9 3.5 - 5.0 10/17/2019 [facility] g/dL 12:58 PM [facility] Total Bilirubin <0.7 0.1 - 1.0 10/17/2019 [facility] mg/dL 12:58 PM [facility] Bilirubin, <0.1 0.0 - 0.3 10/17/2019 [facility] Direct mg/dL 12:58 PM [facility] AST 54 (H) 8 - 43 U/L 10/17/2019 [facility] 12:58 PM [facility] Alkaline 62 38 - 128 10/17/2019 [facility] Phosphatase U/L 12:58 PM [facility] ALT (SGPT) 95 (H) 0 - 34 U/L 10/17/2019 [facility] 12:58 PM [facility] Specimen Anatomical Collection Method Collection Time Receive d Time (Source) Location / / Volume Laterality Blood (Blood, 10/17/2019 8:02 AM 10/17/19 20 Venous) MARKETING ADMIN 12:15 PM MARKETING ADMIN Antonia Aldrich APRN, CNP LAB BLOOD ORDERABLES Performing Organization Address City/State/ZIP Code Phon e Number [facility] [address] [place], [place] [id number] Ear cerumen removal (10/13/2019 10:40 AM MARKETING ADMIN) Anne Marie Rosales MA - 10/13/2019 10:40 AM MARKETING ADMIN Anne Marie Arango MA ? 10/17/2019 ??7:08 AM Ear cerumen removal Date/Time: 10/13/2019 11:26 AM Performed by: Anne Marie Arango MA Authorized by: Antonia Aldrich APRN, CNP Consent: ??Consent obtained: ??Verbal ??Consent given by: ??Patient ??Risks discussed: ??Pain and dizziness Procedure details: ??Location: ??L ear and R ear ??Procedure type: irrigation ?? Post-procedure details: ??Hearing quality: ??Normal ??Patient tolerance of procedure: ??Radha erated with difficulty Comments: ?? Patient had a bilateral ear wash. Ce rumen impacting both ears. Started with patient's right ear, completed one wash with minimal cerumen removed. Patient had increased pain. Discontinued right ear. Completed left ear with minimal cerumen removed. Discussed with provider. Antonia Aldrich APRN, CNP IN CLINIC/BEDSIDE ORDERAB LES documented in this encounter Visit Diagnoses Diagnosis Cerumen in auditory canal on examination - Primary Onychomycosis Dermatophytosis of nail Skin lesions Medication monitoring encounter Encounter for therapeutic drug monitorin g Screening for hyperlipidemia Screening for lipoid disorders Screening for diabetes mellitus Screening, anemia, deficiency, iron Screening for iron deficiency anemia documented in this encounter Care Teams Mechanical Research Engineer Relationship Specialty Start Date End Date Antonia Aldrich APRN, COOK [place]ILLA PCP - General 04/20/18 05/21/20 [address] [place] [address] documented as of this encounter
--- OUTSIDE RECORDS SUMMARY | 2022-05-06 13:06 | XMS_ITS | Encounter Summary ---
:1935 Author Organization [facility] Address [address] [place] [address] Care Team Providers Name Role Phone Antonia Aldrich APRN, SUPERVISOR ORDNANCE TRUCK INSTALLATION Primary Care Provider [phone] Reason for Visit Reason Onset Date Comments Spot on chest 01/06/2020 Encounter Details Date Type Department Care Team Description 01/06/2020 Telephone [facility] Antonia Aldrich, Spot on chest [address] ALTERNATIVE ENERGY ENGINEER, [place], [place] [address] [address] [facility] [phone] [place], [place] [address] Social History Tobacco Use [...] / COVID-19? documented as of this encounter Miscellaneous Notes Telephone Encounter - Annmarie Garcia - 01/06/2020 1:19 PM CDT noted Telephone Encounter - Faviola Ivy - 01/06/2020 1:12 PM CDT Appt scheduled for Thursday01/11/20 at 10:00, confirmed with Pt. Telephone Encounter - Annmarie Garcia - 01/06/2020 1:07 PM CDT Can you please schedule her with Dr Mendoza next week, she does not care what day or time. She is going outside to [employer] so she asked that you just leave a message with the date and time if she does notanswer. Telephone Encounter - Jelly Kendrick MD - 01/06/2020 12:29 PM CDT If Kathryn is OK in coming into the office skin lesions are best evaluated under magnification and in person. Does not sound too concerning so if she wants to wait to see me when I am back in the office in two weeks this should be OK or she could see Dr. Romero next week. Let me know what she would like to do. Telephone Encounter - Annmarie Garcia - 01/06/2020 11:17 AM CDT Please advise Telephone Encounter - Christine Guerrero - 01/06/2020 9:54 AM CDT Patient has a spot on her chest, has had it for many years, but in the last couple months she said it now is crystal-ly and there's redness around it. Wondering if she should be seen in office, please advise. [phone] first, can call cell too if needed [phone] documented in this encounter Plan of Treatment Not on filedocumented as of this encounter Visit Diagnoses Not on filedocumented in this encounter Care Teams Cloth Picker Relationship Specialty Start Date End Date Antonia Aldrich, ALTERNATIVE ENERGY ENGINEER, SUPERVISOR ORDNANCE TRUCK INSTALLATION PCP - General 04/20/18 05/21/20 [address] [facility] [place] [address] documented as of this encounter
--- OUTSIDE RECORDS SUMMARY | 2022-05-06 13:06 | XMS_ITS | Encounter Summary ---
:1935 Author Organization [facility] Address [address] [place] [address] Care Team Providers Name Role Phone Antonia Aldrich APRN, FARM WORKER Primary Care Provider [phone] Encounter Details Date Type Department Care Team Description 11/15/2019 Lab Prasanth Hernandez Medication monitoring [address] encounter [place] [address] Social History Tobacco Use Types [...] Name Priority Date/Time Associated Diagnosis Comme nts HEPATIC FUNCTION Routine 11/15/2019 1:09 PM Medication Resul ts for this PANEL MANUFACTURING TECH monitoring encounter procedu re are in the results section. documented in this encounter Results (ABNORMAL) Liver panel (11/15/2019 1:09 PM MANUFACTURING TECH) Analysis Performed At Patho logist Time Signature Total Protein 7.4 6.3 - 8.2 11/16/2019 [facility] g/dL 1:40 PM [facility] Albumin, Serum 4.3 3.5 - 5.0 11/16/2019 [place] g/dL 1:40 PM [facility] Total Bilirubin <0.7 0.1 - 1.0 11/16/2019 [place] mg/dL 1:40 PM [facility] Bilirubin, <0.1 0.0 - 0.3 11/16/2019 [facility] Direct mg/dL 1:40 PM [facility] AST 54 (H) 8 - 43 U/L 11/16/2019 [place] 1:40 PM [facility] Alkaline 70 38 - 128 11/16/2019 [facility] Phosphatase U/L 1:40 PM [facility] ALT (SGPT) 90 (H) 0 - 34 U/L 11/16/2019 [place] 1:40 PM [facility] Specimen Anatomical Collection Method Collection Time Receive d Time (Source) Location / / Volume Laterality Blood (Blood, 11/15/2019 1:09 PM 11/16/19 1:09 Venous) MANUFACTURING TECH PM MANUFACTURING TECH Antonia Aldrich APRN, CNP LAB BLOOD ORDERABLES Performing Organization Address City/State/ZIP Code Phon e Number [facility] [address] [place] [address] documented in this encounter Visit Diagnoses Diagnosis Medication monitoring encounter Encounter for therapeutic drug monitorin g documented in this encounter Care Teams Supervisor [employer] Relationship Specialty Start Date End Date Antonia Aldrich APRN, FARM WORKER PCP - General 04/20/18 05/21/20 [address] [place] [address] documented as of this encounter
--- OUTSIDE RECORDS SUMMARY | 2022-05-06 13:06 | XMS_ITS | Encounter Summary ---
:[address] [facility] Address [address] [place] [address] Care Team Providers Name Role Phone Antonia Aldrich APRN, BROTHEL KEEPER Primary Care Provider [phone] Encounter Details Date Type Department Care Team Description 10/17/2019 Lab [place] Screening for hyperlipidemia ; [address] Screening, anemia, deficienc y, iron; [place], [place] [address] Screening for diabetes inna oliveros; [phone] Medication benjamin torwendi encounter Social History Tobacco Use Types Packs/Day Years [...] Name Priority Date/Time Associated Diagnosis Comme nts GLOMERULAR Routine 10/17/2019 8:02 AM Screening for diabetes Results for this FILTRATION RATE [facility] mellitus procedure ar e in the results section. CBC BRANCH OFFICE Routine 10/17/2019 8:02 AM Screening, anemia , Results for this W/DIFF [facility] deficiency, iron procedure a re in the results section. HEPATIC FUNCTION Routine 10/17/2019 8:02 AM Medication monitor ing Results for this PANEL [facility] encounter procedure are i n the results section. LIPID PANEL Routine 10/17/2019 8:02 AM Screening for Results for this [facility]KE[facility]ER hyperlipidemia procedure are in the results section. BASIC METABOLIC Routine 10/17/2019 8:02 AM Screening for diabe damian Results for this PANEL [facility] mellitus procedure are i n the results section. documented in this encounter Results Glomerular filtration rate (GFR) (10/17/2019 8:02 AM [facility]) athologist Signature GFR >60 10/17/2019 [facility] 8:17 AM [facility] >60 10/17/2019 [facility] Haitian GFR 8:17 AM [facility] Comment: GFR calculated from serum creatinine v alue Chronic Kidney Disease less than 60 mL/m in/1.73 m2 Kidney Failure less than 15 mL/min/1.73 m2 Note: effective 01/27/07 IDMS-Traceable MDRD Study Equation used. Specimen Anatomical Collection Method Collection Time Receive d Time (Source) Location / / Volume Laterality 10/17/2019 8:02 AM 0 8:02 [facility] AM [facility] Antonia Aldrich APRN, BROTHEL KEEPER LAB BLOOD ORDERABLES Performing Organization Address City/State/ZIP Code Phon e Number [facility] [address] [place] [address] (ABNORMAL) Liver panel (10/17/2019 8:02 AM [facility]) Analysis Performed At Patho logist Time Signature Total Protein 6.5 6.3 - 8.2 10/17/2019 [facility] g/dL 12:58 PM [facility] Albumin, Serum 3.9 3.5 - 5.0 10/17/2019 [place] g/dL 12:58 PM [facility] Total Bilirubin <0.7 0.1 - 1.0 10/17/2019 [place] mg/dL 12:58 PM [facility] Bilirubin, <0.1 0.0 - 0.3 10/17/2019 [place] Direct mg/dL 12:58 PM [facility] AST 54 (H) 8 - 43 U/L 10/17/2019 [facility] 12:58 PM [facility] Alkaline 62 38 - 128 10/17/2019 [place] Phosphatase U/L 12:58 PM [facility] ALT (SGPT) 95 (H) 0 - 34 U/L 10/17/2019 [place] 12:58 PM [facility] Specimen Anatomical Collection Method Collection Time Receive d Time (Source) Location / / Volume Laterality Blood (Blood, 10/17/2019 8:02 AM 10/17/19 20 Venous) [facility] 12:15 PM [facility] Antonia Aldrich APRN, CNP LAB BLOOD ORDERABLES Performing Organization Address City/State/ZIP Code Phon e Number [facility] [address] [place] [address] (ABNORMAL) Basic metabolic panel (10/17/2019 8:02 AM [facility]) P athologist Signature Sodium 142 135 - 145 10/17/2019 [facility] mmol/L 8:17 AM [facility] [place] Potassium 3.6 3.5 - 5.1 10/17/2019 [facility] mmol/L 8:17 AM [facility] [place] Comment: . Chloride 101 98 - 107 mmol/L 10/17/2019 8:17 AM [facility] Comment: . CO2 31 (H) 22 - 29 mmol/L 10/17/2019 8:17 AM [facility] Comment: . Creatinine 0.8 0.4 - 1.2 mg/dL 10/17/2019 8:17 AM [facility] Comment: . BUN 18 5 - 25 mg/dL 10/17/2019 8:17 AM [facility] Comment: . Glucose 111 (H) 70 - 100 mg/dL 10/17/2019 8:17 AM [facility] Calcium, Total,S 9.4 8.4 - 10.2 mg/dL 10/17/2019 8:17 AM [facility] Comment: . Specimen Anatomical Collection Method Collection Time Receive d Time (Source) Location / / Volume Laterality Blood 10/17/2019 8:02 AM 0 8:06 [facility] AM [facility] Antonia Aldrich METAL DRAWER, BROTHEL KEEPER LAB BLOOD ORDERABLES Performing Organization Address City/State/ZIP Code Phon e Number [facility] [place] [address] [place] [address] (ABNORMAL) CBC Branch Off w/Diff (10/17/2019 8:02 AM [facility]) [facility] Method Time Signature WBC 3.5 3.5 - 10.5 10/17/2019 [facility] K/uL 8:08 AM [facility] [place] RBC 4.28 3.90 - 10/17/2019 [facility] 5.00 M/uL 8:08 AM [facility] [place] Hemoglobin 13.2 12.0 - 10/17/2019 [facility] 15.5 g/dL 8:08 AM [facility] [place] Hematocrit 38.7 35.0 - 10/17/2019 [facility] 44.0 % 8:08 AM [facility] [place] Platelets 147 (L) 150 - 450 10/17/2019 [facility] K/uL 8:08 AM [facility] [place] MCV 90.4 81.6 - 10/17/2019 [facility] 98.3 fL 8:08 AM [facility] [place] MCH 30.8 26.0 - 10/17/2019 [facility] 32.0 pg 8:08 AM [facility] [place] MCHC 34.1 32.0 - 10/17/2019 [facility] 36.0 g/dL 8:08 AM [facility] [place] RDW 12.7 11.9 - 10/17/2019 [facility] 15.5 % 8:08 AM [facility] [place] Lymphocytes % 37.4 18.0 - 10/17/2019 [facility] 45.0 % 8:08 AM [facility] [place] Mid-size Cells 13.5 (H) 3.3 - 10.1 10/17/2019 [facility] % 8:08 AM [facility] [place] Granulocytes/Josefa 49.1 45.8 - 10/17/2019 [facility] trophils 73.7 % 8:08 AM [facility] [place] Lymphocytes 1.3 0.9 - 2.9 10/17/2019 [facility] Absolute K/uL 8:08 AM [facility] [place] MIDS Absolute 0.5 0.2 - 0.8 10/17/2019 [facility] K/uL 8:08 AM [facility] [place] Granulocytes/Josefa 1.7 (L) 2.1 - 8.7 10/17/2019 [facility] trophils K/uL 8:08 AM [facility] Absolute Specimen Anatomical Collection Method Collection Time Receive d Time (Source) Location / / Volume Laterality Blood 10/17/2019 8:02 AM 0 8:06 [facility] AM [facility] Antonia Aldrich APRN, BROTHEL KEEPER LAB BLOOD ORDERABLES Performing Organization Address City/State/ZIP Code Phon e Number [facility] [place]NANDE[place] [address] [place] [address] Lipid panel (10/17/2019 8:02 AM [facility]) athologist Signature Cholesterol 159 0 - 199 10/17/2019 [facility] mg/dL 12:58 PM [facility] Comment: Recommended by National Cholesterol Education Program (ATP III) -------- Cholesterol Ranges -------- <200 ? Desirable 200-239 ? Borderline high >=240 ? High Triglycerides 122 0 - 149 mg/dL 10/17/2019 12:58 PM [facility] Comment: -------- TRIG Ranges -------- <150 ?Normal 150-199 ? Borderline high 200-499 ? High >=500 ? Very high HDL 44 40 - 60 mg/dL 10/17/2019 12:58 PM [facility] Comment: -------- HDL Ranges -------- <40 ?Low 40-59 ?Normal >=60 ? Optimal LDL Calculated 91 0 - 99 mg/dL 10/17/2019 12:58 PM [facility] Comment: -------- LDL Ranges -------- <100 ? Optimal 100-129 ?Near optimal/above op timal 130-159 ?Borderline high 160-189 ?High >=190 ?Very high Fasting? Yes 10/17/2019 8:06 AM [facility] Specimen Anatomical Collection Method Collection Time Receive d Time (Source) Location / / Volume Laterality Blood 10/17/2019 8:02 AM 0 [facility] 12:15 PM [facility] Antonia Aldrich APRN, BROTHEL KEEPER LAB BLOOD ORDERABLES Performing Organization Address City/State/[facility] Code Phon e Number [facility] [address] [place] [address] documented in this encounter Visit Diagnoses Diagnosis Screening for hyperlipidemia Screening for lipoid disorders Screening, anemia, deficiency, iron Screening for iron deficiency anemia Screening for diabetes mellitus Medication monitoring encounter Encounter for therapeutic drug monitorin g documented in this encounter Care Teams Line Patroller Relationship Specialty Start Date End Date Antonia Aldrich APRN, BROTHEL KEEPER PCP - General 04/20/18 05/21/[address] [place] [address] documented as of this encounter
--- OUTSIDE RECORDS SUMMARY | 2022-05-06 13:06 | XMS_ITS | Encounter Summary ---
:1935 Author Organization [facility] Address [address] [place] [address] Care Team Providers Name Role Phone Antonia Aldrich HEADHUNTER, MECHANIC HELPER Primary Care Provider [phone] Reason for Visit Reason Comments Med Refill Encounter Details Date Type Department Care Team Description 09/26/2019 Refill [place] Antonia Aldrich, Allergic rhinitis, [address] HEADHUNTER, MECHANIC HELPER unspecified [place] [address] seasonality, [place], [place] [address] unspecified trigger Social History Tobacco Use Types Packs/Day Years [...] this encounter Miscellaneous Notes Telephone Encounter - Ruma Odom MA - 09/28/2019 8:58 AM CST Last visit in Provider Department: 06/29/2019 Upcoming appointment with Provider: None Last Rx: 09/21/2018- 48g with 3 refills Requested Prescriptions Pending Prescriptions Disp Refills ??? fluticasone (FLONASE) 50 MCG/ACT nasal spray [Pharmacy Med Name: FLUTICASONE [place] NS SP 16GM RX 50MCG] 48 g 4 Sig: USE 2 SPRAYS NASALLY DAILY TRIC TRUCK DRIVER documented in this encounter Plan of Treatment Not on filedocumented as of this encounter Visit Diagnoses Diagnosis Allergic rhinitis, unspecified seasonali ty, unspecified trigger documented in this encounter Care Teams Coach Tour Driver Relationship Specialty Start Date End Date Antonia Aldrich APRN, MECHANIC HELPER PCP - General 04/20/18 05/21/20 [address] [facility] [place] [address] documented as of this encounter
--- OUTSIDE RECORDS SUMMARY | 2022-05-06 13:06 | XMS_ITS | Encounter Summary ---
:1935 Author Organization [facility] Address [address] [place] [address] Care Team Providers Name Role Phone Antonia Aldrich APRN, RED LEADER Primary Care Provider [phone] Reason for Visit Reason Comments Immunizations flu Encounter Details Date Type Department Care Team Description 07/13/2019 Immunization [place] [address] [place], [place] [address] Social History Tobacco Use [...] documented as of this encounter Progress Notes Amber Jon RN - 07/13/2019 10:40 AM CDT Patient denies a previous reaction to any vaccines. Reviewed screening questionnaire with patient prior to administration. VIS given. Provider documented to provide the patient with two 1/2 doses of the high dose flu vaccine 2 days apart. First 1/2 dose given today. documented in this encounter Plan of Treatment Not on filedocumented as of this encounter Visit Diagnoses Not on filedocumented in this encounter Care Teams Sign Painter Relationship Specialty Start Date End Date Antonia Aldrich APRN, RED LEADER PCP - General 04/20/18 05/21/20 [address] [facility] [place] [address] documented as of this encounter
--- OUTSIDE RECORDS SUMMARY | 2022-05-06 13:06 | XMS_ITS | Encounter Summary ---
:1935 Author Organization [facility] Address [address] [place] [address] Care Team Providers Name Role Phone Antonia Aldrich DOOR TO DOOR SALESMAN, SOIL BIOLOGY TEACHER Primary Care Provider [phone] Reason for Visit Reason Onset Date Comments Med Refill 10/31/2019 Encounter Details Date Type Department Care Team Description 10/31/2019 Refill [place] Antonia Aldrich, Allergic rhinitis, [address] DOOR TO DOOR SALESMAN, IVANA unspecified [place], [place] [address] seasonality, [place], [place] [address] unspecified trigger Social History [...] Encounter - Rosa Wells LPN - 10/31/2019 2:15 PM CST This was faxed this morning by the front office specialist. ATIONS RESEARCH GROUP MANAGER Telephone Encounter - Antonia Aldrich APRN, CNP - 10/31/2019 8:05 AM OPERATIONS RESEARCH GROUP MANAGER This has been printed please fax to [facility] pharmacy in [place]. Thanks Harman ATIONS RESEARCH GROUP MANAGER Telephone Encounter - Tabitha Lombardo LPN - 10/31/2019 7:06 AM OPERATIONS RESEARCH GROUP MANAGER Last visit in Provider Department: 10/13/2019 Upcoming appointment with Provider: none Last Rx: 04/05/19 #180 with 1 refill Requested Prescriptions Pending Prescriptions Disp Refills ? ? fexofenadine-pseudoephedrine (MING-D ALLERGY & CONGESTION) 60-120 MG per 12 hr tablet 180tablet 1 Sig: Take 1 tablet by mouth 2 (two) times a day ATIONS RESEARCH GROUP MANAGER documented in this encounter Plan of Treatment Not on filedocumented as of this encounter Visit Diagnoses Diagnosis Allergic rhinitis, unspecified seasonali ty, unspecified trigger documented in this encounter Care Teams Public Relations Account Supervisor Relationship Specialty Start Date End Date Antonia Aldrich APRN, IVANA PCP - General 04/20/18 05/21/[address] [place] [address] documented as of this encounter
--- OUTSIDE RECORDS SUMMARY | 2022-05-06 13:06 | XMS_ITS | Encounter Summary ---
:1935 Author Organization [facility] Address [address] [place] [address] Care Team Providers Name Role Phone Antonia Aldrich APRN, CNP Primary Care Provider [phone] Reason for Visit Reason Comments Immunizations FLU Encounter Details Date Type Department Care Team Description 07/15/2019 Immunization [place] Immunization due (Primary [address] [...] Primary documented in this encounter Care Teams Auditor Relationship Specialty Start Date End Date Antonia Aldrich APRN, RELEASE OF INFORMATION CLERK PCP - General 04/20/18 05/21/20 [address] [place] [address] documented as of this encounter
--- OUTSIDE RECORDS SUMMARY | 2022-05-06 13:07 | XMS_ITS | Encounter Summary ---
:1935 Author Organization [facility] Address [address] [place] [address] Care Team Providers Name Role Phone Antonia Aldrich APRN, BATTERY PARTS ASSEMBLER Primary Care Provider [phone] Encounter Details Date Type Department Care Team Description 12/10/2018 Lab Pr[place]h [place] Medication monitoring [address] [...] Associated Diagnosis Comme nts HEPATIC FUNCTION Routine 12/10/2018 10:16 AM Medication Resu lts for this PANEL CDT monitoring encounter procedu re are in the results section. documented in this encounter Results (ABNORMAL) Liver panel (12/10/2018 10:16 AM CDT) Analysis Performed At Patho logist Time Signature Total Protein 6.8 6.3 - 8.2 12/10/2018 [place] g/dL 6:37 PM [facility] Albumin, Serum 3.8 3.5 - 5.0 12/10/2018 [place] g/dL 6:37 PM [facility] Total Bilirubin <0.7 0.1 - 1.0 12/10/2018 [place] mg/dL 6:37 PM [facility] Bilirubin, <0.1 0.0 - 0.3 12/10/2018 [place] Direct mg/dL 6:37 PM [facility] AST 53 (H) 8 - 43 U/L 12/10/2018 [facility] 6:37 PM [facility] Alkaline 57 38 - 128 12/10/2018 [facility] Phosphatase U/L 6:37 PM [facility] ALT (SGPT) 70 (H) 0 - 34 U/L 12/10/2018 [place] 6:37 PM [facility] Specimen Anatomical Collection Method Collection Time Receive d Time (Source) Location / / Volume Laterality Blood (Blood, 12/10/2018 10:16 12/10/2018 6:12 Venous) AM CDT PM CDT Antonia Aldrich APRN, CNP LAB BLOOD ORDERABLES Performing Organization Address City/State/ZIP Code Phon e Number [facility] [address] [place] [address] documented in this encounter Visit Diagnoses Diagnosis Medication monitoring encounter Encounter for therapeutic drug monitorin g documented in this encounter Care Teams Photographic Lithographer Relationship Specialty Start Date End Date Antonia Aldrich APRN, BATTERY PARTS ASSEMBLER PCP - General 04/20/18 05/21/[address] [place] [address] [place] [address] documented as of this encounter
--- OUTSIDE RECORDS SUMMARY | 2022-05-06 13:07 | XMS_ITS | Encounter Summary ---
:1935 Author Organization [facility] Address [address] [place] [address] Care Team Providers Name Role Phone Antonia Aldrich REMOVABLE PROSTHODONTIST, SANDWICH ARTIST Primary Care Provider [phone] Reason for Visit Reason Onset Date Comments FLU SHOT 07/20/2018 Encounter Details Date Type Department Care Team Description 07/20/2018 Telephone Prasanth [place] Antonia Aldrich, FLU SHOT [address] REMOVABLE PROSTHODONTIST, [place] [address] [address] [facility] [address] [phone] [place], [place] [address] Social History Tobacco Use Types Packs/Day Years Used Date Never Assessed Financial Resource Strain Answer Date Recorded How [...] Telephone Encounter - Rosa Wells LPN - 07/20/2018 2:13 PM CST Left a detailed message with bottom information given. ND PASTE MIXER Telephone Encounter - Antonia Aldrich APRN, CNP - 07/20/2018 2:04 PM ALMOND PASTE MIXER In the past checking her medical records but they did not recommend splitting of the flu shot. Kaleigh Hammer ND PASTE MIXER Telephone Encounter - Amber Jon RN - 07/20/2018 1:32 PM CST Just to clarify, they do not recommend the flu shot at all? Or splitting it up into 2 doses? ND PASTE MIXER Telephone Encounter - Antonia Aldrich APRN, CNP - 07/20/2018 1:18 PM ALMOND PASTE MIXER Our immunization clinic states no that they do not recommend this. ND PASTE MIXER Telephone Encounter - Amber Jon RN - 07/20/2018 1:08 PM CST Harman, What would you recommend for this patients flu shot? ND PASTE MIXER Telephone Encounter - Kathryn Spring - 07/20/2018 10:38 AM CST The patient has had a reaction to the flu shot previously and it was recommended that she receive this year's in a two-step dosing. She'd like to know if we'd be able to do that here. Please leave a yes or no message on the home line for her. ND PASTE MIXER documented in this encounter Plan of Treatment Not on filedocumented as of this encounter Visit Diagnoses Not on filedocumented in this encounter Care Teams Java Developer With Security Clearance Relationship Specialty Start Date End Date Antonia Aldrich APRN, IVANA PCP - General 04/20/18 05/21/20 [address] [place] [address] documented as of this encounter
--- OUTSIDE RECORDS SUMMARY | 2022-05-06 13:07 | XMS_ITS | Encounter Summary ---
:1935 Author Organization [facility] Address [address] [place] [address] Care Team Providers Name Role Phone Antonia Aldrich APRN, PHARMACY MESSENGER Primary Care Provider [phone] Encounter Details Date Type Department Care Team Description 02/02/2019 Lab Prasanth [place] Medication monitoring [address] [...] Associated Diagnosis Comme nts HEPATIC FUNCTION Routine 02/02/2019 4:11 PM Medication Resul ts for this PANEL CDT monitoring encounter procedu re are in the results section. documented in this encounter Results (ABNORMAL) Liver panel (02/02/2019 4:11 PM CDT) Analysis Performed At Patho logist Time Signature Total Protein 7.2 6.3 - 8.2 02/03/2019 [place] g/dL 1:02 PM [facility] Albumin, Serum 4.1 3.5 - 5.0 02/03/2019 [place] g/dL 1:02 PM [facility] Total Bilirubin <0.7 0.1 - 1.0 02/03/2019 [place] mg/dL 1:02 PM [facility] Bilirubin, <0.1 0.0 - 0.3 02/03/2019 [place] Direct mg/dL 1:02 PM [facility] AST 66 (H) 8 - 43 U/L 02/03/2019 [place] 1:02 PM [facility] Alkaline 63 38 - 128 02/03/2019 [place] Phosphatase U/L 1:02 PM [facility] ALT (SGPT) 89 (H) 0 - 34 U/L 02/03/2019 [place] 1:02 PM [facility] Specimen Anatomical Collection Method Collection Time Receive d Time (Source) Location / / Volume Laterality Blood (Blood, 02/02/2019 4:11 PM 02/04/20 19 Venous) CDT 12:12 PM CDT Antonia Aldrich APRN, CNP LAB BLOOD ORDERABLES Performing Organization Address City/State/ZIP Code Phon e Number [facility] [address] [place] [address] documented in this encounter Visit Diagnoses Diagnosis Medication monitoring encounter Encounter for therapeutic drug monitorin g documented in this encounter Care Teams Triage Nurse Relationship Specialty Start Date End Date Antonia Aldrich APRN, PHARMACY MESSENGER PCP - General 04/20/18 05/21/20 100 [facility] [place] [address] documented as of this encounter
--- OUTSIDE RECORDS SUMMARY | 2022-05-06 13:07 | XMS_ITS | Encounter Summary ---
:1935 Author Organization [facility] Address [address] [place] [address] Care Team Providers Name Role Phone Antonia Aldrich LOFTER, PROJECT MANAGEMENT SPECIALIST Primary Care Provider [phone] Encounter Details Date Type Department Care Team Description 02/02/2019 Orders Only Nikh[place] Antonia Aldrich, Medication monitoring [address] [place] N[place] encounter (Primary [place] [address] Dx) [address] [place] [address] Social History Tobacco Use Types Packs/Day Years [...] of this encounter Results (ABNORMAL) Liver panel (02/02/2019 4:11 PM CDT) Analysis Performed At Patho logist Time Signature Total Protein 7.2 6.3 - 8.2 02/03/2019 [place] g/dL 1:02 PM [facility] Albumin, Serum 4.1 3.5 - 5.0 02/03/2019 [place] g/dL 1:02 PM [facility] Total Bilirubin <0.7 0.1 - 1.0 02/03/2019 [place] mg/dL 1:02 PM [facility] Bilirubin, <0.1 0.0 - 0.3 02/03/2019 [place] Direct mg/dL 1:02 PM [facility] AST 66 (H) 8 - 43 U/L 02/03/2019 [facility] 1:02 PM [facility] Alkaline 63 38 - 128 02/03/2019 [facility] Phosphatase U/L 1:02 PM [facility] ALT (SGPT) 89 (H) 0 - 34 U/L 02/03/2019 [facility] 1:02 PM [facility] Specimen Anatomical Collection Method Collection Time Receive d Time (Source) Location / / Volume Laterality Blood (Blood, 02/02/2019 4:11 PM 02/04/20 19 Venous) CDT 12:12 PM CDT Antonia Aldrich APRN, CNP LAB BLOOD ORDERABLES Performing Organization Address City/State/ZIP Code Phon e Number [facility] [address] [place] [address] documented in this encounter Visit Diagnoses Diagnosis Medication monitoring encounter - Primar y Encounter for therapeutic drug monitorin g documented in this encounter Care Teams J2Ee Consultant Relationship Specialty Start Date End Date Antonia Aldrich APRN, PROJECT MANAGEMENT SPECIALIST PCP - General 04/20/18 05/21/20 100 [place] [address] documented as of this encounter
--- OUTSIDE RECORDS SUMMARY | 2022-05-06 13:07 | XMS_ITS | Encounter Summary ---
:1935 Author Organization [facility] Address [address] [place] [address] Care Team Providers Name Role Phone Antonia Aldrich APRN, IVANA Primary Care Provider [phone] Encounter Details Date Type Department Care Team Description 11/10/2018 Orders Only Prasanth Hernandez Antonia Aldrich, Onychomycosis [address] [place], [place] [address] [address] [facility] [address] [phone] [place], [place] [address] Social History Tobacco Use [...] documented as of this encounter Progress Notes Antonia Aldrich APRN, CNP - 11/10/2018 11:52 AM CST Prescription renewed. DISCOVERY INFORMATICS SPECIALIST documented in this encounter Plan of Treatment Not on filedocumented as of this encounter Visit Diagnoses Diagnosis Onychomycosis Dermatophytosis of nail documented in this encounter Care Teams Statistical Methods Professor Relationship Specialty Start Date End Date Antonia Aldrich APRN, PRODUCTION LEADER PCP - General 04/20/18 05/21/[address] [place] [address] documented as of this encounter
--- OUTSIDE RECORDS SUMMARY | 2022-05-06 13:07 | XMS_ITS | Encounter Summary ---
:1935 Author Organization [facility] Address [address] [place] [address] Care Team Providers Name Role Phone Antonia Aldrich SENIOR MICROSTRATEGY DEVELOPER, LOGGING SPECIALIST Primary Care Provider [phone] Reason for Visit Reason Onset Date Comments Med Refill 09/28/2018 Encounter Details Date Type Department Care Team Description 09/28/2018 Refill Prasanth Hernandez Antonia Aldrich, Allergic rhinitis, [address] SENIOR MICROSTRATEGY DEVELOPER, IV[place] [address] seasonality, [place], [place] [address] unspecified trigger (Primary Dx) Social History Tobacco Use Types Packs/Day Years [...] Telephone Encounter - Rosa Wells LPN - 09/28/2018 10:15 AM CST SENT ER SORTER MACHINE Telephone Encounter - Antonia Aldrich APRN, CNP - 09/28/2018 9:48 AM LUMBER SORTER MACHINE The medication has been renewed as requested for 6 months, and needs to be faxed to pharmacy of choice. Thanks Harman ER SORTER MACHINE Telephone Encounter - Rosa Wells LPN - 09/28/2018 7:43 AM CST Rochelle Dai pending [facility] ER SORTER MACHINE documented in this encounter Plan of Treatment Not on filedocumented as of this encounter Visit Diagnoses Diagnosis Allergic rhinitis, unspecified seasonali ty, unspecified trigger - Primary documented in this encounter Care Teams Eap Consultant Relationship Specialty Start Date End Date Antonia Aldrich APRN, LOGGING SPECIALIST PCP - General 04/20/18 05/21/20 100 [place] [address] documented as of this encounter
--- OUTSIDE RECORDS SUMMARY | 2022-05-06 13:07 | XMS_ITS | Encounter Summary ---
:1935 Author Organization [facility] Address [address] [place] [address] Care Team Providers Name Role Phone Antonia Aldrich EVENT LIGHTING SPECIALIST, MANAGER CORPORATE MARKETING Primary Care Provider [phone] Reason for Visit Reason Onset Date Comments Med Refill 04/05/2019 Encounter Details Date Type Department Care Team Description 04/05/2019 Telephone Prasanth Hernandez Antonia Aldrich, Med Refill [address] EVENT LIGHTING SPECIALIST, IVANA [place], [place] [address] [address] [facility] [address] [phone] [place], [place] [address] Social History Tobacco Use [...] Notes Telephone Encounter - Miryam Pickering - 04/05/2019 3:51 PM CDT RX faxed. Telephone Encounter - Amber Jon RN - 04/05/2019 3:45 PM CDT Please fax Rx to [place] pharmacy Telephone Encounter - Katja Peter MA - 04/05/2019 1:34 PM CDT fexofenadine-pseudoephedrine (MING-[facility] ALLERGY [facility] CONGESTION) 60-120 MG per 12 hr tablet Sig: Take 1 tablet by mouth 2 (two) times a day #180 +1 refill 09/30/2018 Last office visit 11/05/2018 Future appt scheduled 04/07/2019 documented in this encounter Plan of Treatment Not on filedocumented as of this encounter Visit Diagnoses Diagnosis Allergic rhinitis, unspecified seasonali ty, unspecified trigger documented in this encounter Care Teams Associate Professor Of Counseling Relationship Specialty Start Date End Date Antonia Aldrich APRN, MANAGER CORPORATE MARKETING PCP - General 04/20/18 05/21/20 100 [facility] [place] [address] documented as of this encounter
--- OUTSIDE RECORDS SUMMARY | 2022-05-06 13:07 | XMS_ITS | Encounter Summary ---
:1935 Author Organization [facility] Address [address] [place] [address] Care Team Providers Name Role Phone Antonia Aldrich APRN, HELP DESK CONSULTANT Primary Care Provider [phone] Encounter Details Date Type Department Care Team Description 11/05/2018 Lab Prasanth Hernandez Medication monitoring [address] [...] Associated Diagnosis Comme nts HEPATIC FUNCTION Routine 11/05/2018 11:18 AM Medication Resu lts for this PANEL ORDER DEPARTMENT SUPERVISOR monitoring encounter procedu re are in the results section. documented in this encounter Results (ABNORMAL) Liver panel (11/05/2018 11:18 AM ORDER DEPARTMENT SUPERVISOR) Analysis Performed At Patho logist Time Signature Total Protein 6.7 6.3 - 8.2 11/05/2018 [facility] g/dL 6:41 PM [facility] Albumin, Serum 4.1 3.5 - 5.0 11/05/2018 [facility] g/dL 6:41 PM [facility] Total Bilirubin <0.7 0.1 - 1.0 11/05/2018 [facility] mg/dL 6:41 PM [facility] Bilirubin, <0.1 0.0 - 0.3 11/05/2018 [facility] Direct mg/dL 6:41 PM [facility] AST 50 (H) 8 - 43 U/L 11/05/2018 [facility] 6:41 PM [facility] Alkaline 57 38 - 128 11/05/2018 [facility] Phosphatase U/L 6:41 PM [facility] ALT (SGPT) 82 (H) 0 - 34 U/L 11/05/2018 [facility] 6:41 PM [facility] Comment: NOTE: Normal range change effective 08/15 Specimen Anatomical Collection Method Collection Time Receive d Time (Source) Location / / Volume Laterality Blood (Blood, 11/05/2018 11:18 11/05/2018 6:41 Venous) AM ORDER DEPARTMENT SUPERVISOR PM ORDER DEPARTMENT SUPERVISOR Antonia Aldrich APRN HELP DESK CONSULTANT LAB BLOOD ORDERABLES Performing Organization Address City/State/ZIP Code Phon e Number [facility] [address] [place] [address] documented in this encounter Visit Diagnoses Diagnosis Medication monitoring encounter Encounter for therapeutic drug monitorin g documented in this encounter Care Teams Straw Hat Plunger Operator Relationship Specialty Start Date End Date Antonia Aldrich APRN, HELP DESK CONSULTANT PCP - General 04/20/18 05/21/20 100 [facility] [place] [address] documented as of this encounter
--- OUTSIDE RECORDS SUMMARY | 2022-05-06 13:07 | XMS_ITS | Encounter Summary ---
:1935 Author Organization [facility] Address [address] [place] [address] Care Team Providers Name Role Phone Antonia Aldrich CANTEEN OPERATOR, DISTRIBUTION SYSTEM OPERATOR Primary Care Provider [phone] Reason for Visit Reason Comments Med Refill Encounter Details Date Type Department Care Team Description 11/05/2018 Refill Nikhil Hernandez Antonia Aldrich, Gastroesophageal reflux [address] IV[place] NAM disease, esophagitis Nikhil Hernandez [place] [address] presence not specified [address] [place] [address] (Primary Dx) [phone] Social History Tobacco Use Types Packs/Day Years [...] encounter Miscellaneous Notes Telephone Encounter - Ruma Burnette MA - 11/05/2018 1:[address] JITENDRA 40MG, #90 x 3 refills 11/25/2017 Med was last reviewed on 12/28/2017. Pt was seen today 11/05/2018 for an impacted cerumen of left ear, onychomycosis, medication monitoring encounter and coccyx pain but med was not discussed. There are no upcoming appointment scheduled for pt at this time. Please advise, thank you. IR TABLE OPERATOR documented in this encounter Plan of Treatment Not on filedocumented as of this encounter Visit Diagnoses Diagnosis Gastroesophageal reflux disease, esophag itis presence not specified - Primary documented in this encounter Care Teams Mediation Commissioner Relationship Specialty Start Date End Date Antonia Aldrich, CANTEEN OPERATOR, DISTRIBUTION SYSTEM OPERATOR PCP - General 04/20/18 05/21/20 100 [place] [address] documented as of this encounter
--- OUTSIDE RECORDS SUMMARY | 2022-05-06 13:07 | XMS_ITS | Encounter Summary ---
:1935 Author Organization [facility] Address [address] [place] [address] Care Team Providers Name Role Phone Antonia Aldrich SERVICE DEVELOPER, INTERNAL MEDICINE NURSE PRACTITIONER Primary Care Provider [phone] Reason for Visit Reason Onset Date Comments fax 04/08/2019 Encounter Details Date Type Department Care Team Description 04/08/2019 Telephone Prasanth Hernandez Antonia Aldrich, fax [address] SERVICE DEVELOPER, IVANA [place] [address] [facility] [address] [phone] [place], [place] [address] Social History Tobacco Use [...] Telephone Encounter - Amber Jon RN - 04/08/2019 11:32 AM CDT Noted. Telephone Encounter - Faviola Ivy - 04/08/2019 11:32 AM CDT Both referrals and face sheet faxed to [facility] radiology as requested. Telephone Encounter - Amber Jon RN - 04/08/2019 11:12 AM CDT Please fax order for Mammogram and Dexa scan to [facility] documented in this encounter Plan of Treatment Not on filedocumented as of this encounter Visit Diagnoses Not on filedocumented in this encounter Care Teams Loader Magazine Grinder Relationship Specialty Start Date End Date Antonia Aldrich APRN, INTERNAL MEDICINE NURSE PRACTITIONER PCP - General 04/20/18 05/21/[address] [place] [address] documented as of this encounter
--- OUTSIDE RECORDS SUMMARY | 2022-05-06 13:07 | XMS_ITS | Encounter Summary ---
:1935 Author Organization [facility] Address [address] [place] [address] Care Team Providers Name Role Phone Antonia Aldrich CRESTER, RETAIL OPERATIONS SPECIALIST Primary Care Provider [phone] Reason for Visit Reason Comments Med Refill Encounter Details Date Type Department Care Team Description 03/19/2019 Refill [place] Antonia Aldrich, Neuropathy (Primary Dx) [address] [place], [place] [address] [address] [facility] [address] [phone] [place], [place] [address] Social History Tobacco Use [...] Telephone Encounter - Ruma Odom MA - 03/22/2019 1:12 PM CDT gabapentin (NEURONTIN) 300 MG capsule- Last refill: 12/23/2018 Medication not discussed in the last year. No follow up scheduled at this time. Please help patient facilitate an appointment. Thank you! 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
--- OUTSIDE RECORDS SUMMARY | 2022-05-06 13:07 | XMS_ITS | Encounter Summary ---
:1935 Author Organization [facility] Address [address] [place] [address] Care Team Providers Name Role Phone Antonia Aldrich WOOL TAMPER, SUPERVISOR STEEL DIVISION Primary Care Provider [phone] Reason for Visit Reason Comments Med Refill Encounter Details Date Type Department Care Team Description 09/17/2018 Refill Prasanth Hernandez Antonia Aldrich, Allergic rhinitis, [address] WOOL TAMPER, SUPERVISOR STEEL DIVISION unspecified [place] [address] seasonality, [place], [place] [address] unspecified trigger (Primary Dx) [...] this encounter Miscellaneous Notes Telephone Encounter - Sabine Mariee LPN - 09/21/2018 3:10 PM CST Last Rx Flonase (fluticasone nasal) 50 mcg/inh spray, nasal, 2 squirt(s), Daily, 90 days Last Prescribed: 08/12/2017 Prescriber: Antonia Aldrich Pharmacy: [facility] Quantity: 3 Refills: 3 Chronic: Y Med/dx last reviewed 04/06/18 (annual wellness visit) No upcoming appointment scheduled SALES ADVISOR documented in this encounter Plan of Treatment Not on filedocumented as of this encounter Visit Diagnoses Diagnosis Allergic rhinitis, unspecified seasonali ty, unspecified trigger - Primary documented in this encounter Care Teams Career Counselor Relationship Specialty Start Date End Date Antonia Aldrich, WOOL TAMPER, SUPERVISOR STEEL DIVISION PCP - General 04/20/18 05/21/[address] [place] [address] [place] [address] documented as of this encounter
--- OUTSIDE RECORDS SUMMARY | 2022-05-06 13:07 | XMS_ITS | Encounter Summary ---
:1935 Author Organization [facility] Address [address] [place] [address] Care Team Providers Name Role Phone Antonia Aldrich APRN, CNP Primary Care Provider [phone] Reason for Referral Consultation (Routine) - Closed Specialty Diagnoses / Procedures Referred By Contact Refer red To Contact Diagnoses Osteopenia, unspecified location Antonia Aldrich Mayo - Referrals APRN, CNP [id number] [place] [address] Fax: Referral ID Status Reason Start Date Expiration Date Visits Requ ested Visits Authorized [id number] Closed 04/08/2019 04/08/2020 1 1 Scheduling Instructions Please schedule after June 09 19. Thanks, Harman Consultation (Routine) - Closed Specialty Diagnoses / Procedures Referred By Contact Refer red To Contact Diagnoses Screening mammogram, encounter for Antonia Aldrich Mayo - Pee NAM CNP [id number] [place] [address] Fax: Referral ID Status Reason Start Date Expiration Date Visits Requ ested Visits Authorized [id number] Closed 04/08/2019 04/08/2020 1 1 Reason for Visit Reason Comments Consult Discuss having DEXA Encounter Details Date Type Department Care Team Description 04/07/2019 Office Visit Prasanth Aldrich Antonia Osteopenia, unspecified loca tion (Primary Dx); [address] M, IVANA NAM Screening mammogram, encounter for [place] [address] [facility] [address] [address] [place] [address] Social History Tobacco Use Types Packs/Day Years [...] Sign Reading Time Taken Comments Blood Pressure 118/66 04/07/2019 2:07 PM CDT Pulse 84 04/07/2019 2:07 PM CDT Temperature 36 ??C (96.8 ??F) 04/07/2019 2:07 PM CDT Respiratory Rate 16 04/07/2019 2:07 PM CDT Oxygen Saturation 96% 04/07/2019 2:07 PM CDT Inhaled Oxygen Concentration - - Weight 73 kg (160 lb 15 oz) 04/07/2019 2:07 PM CDT Height 158 cm (5' 2.21) 04/07/2019 2:07 PM CDT Body Mass Index 29.24 04/07/2019 2:07 PM CDT documented in this encounter Patient Instructions Patient InstructionsChharshad Aldrich APRN, CNP - 04/07/2019 2:20 PM CDT Mammogram at [facility], they will call you to schedule DEXA scan in May Neurontin 300 mg twice a day x 3 weeks; then once a day x 3 weeks, and then discontinue documented in this encounter Progress Notes Antonia Aldrich APRN, CNP - 04/07/2019 2:20 PM CDT Estab Patient Visit Subjective Patient ID: Kathryn Leon is a 84 y.o. female presenting for the following concerns. Chief Complaint Patient presents with ??? Consult Discuss having DEXA HPI: The patient is a pleasant 84-year-old female presenting ambulatory to the clinical setting today requesting to review when she had her last DEXA scan. The patient reports she was diagnosed with osteoporosis in her 40s, had been on Fosamax for a period of 20 years consistently, then had been off Fosamax now for period of 20 years. The patient is on a dietary calcium supplement which she is tolerating well. The patient does exercise and stays quite active. The patient has not had any unusual fractures. The patient's mother had significant osteoporosis. The patient's last DEXA scan was on 06/09/2017, with the final impression being osteopenia. The patient's last mammogram was on 12/14/2017, and she would like to proceed with a screening mammogram. The patient inquires about discontinuing gabapentin. The patient has been on gabapentin since she had her lumbar back surgery in 2009, when she was experiencing radiculopathy symptoms down her right lower extremity. The patient continues to have numbness in her toes, both in her left and right foot, which are often discolored red and cold. She does not necessarily have any pain. The patient does not feel she has had any nerve damage in her right lower extremity. The patient has never tried off the Neurontin, but would like to consider it at this time. ROS: BREASTS: See HPI. The patient's last mammogram was on 12/14/2017, and she would like to proceed with amammogram. ENDOCRINOLOGY: See HPI. The patient does have a history of osteoporosis, diagnosed in her 40s was onFosamax for period of 20 years, which was discontinued after 20 years, about 20 years ago. The patient is inquiring about a DEXA scan. MUSCULOSKELETAL: See HPI. The patient did have lumbar back surgery in 2009. NEUROLOGICAL: See HPI. The patient has been on Neurontin since her back surgery in 2009 and inquiresabout the need to continue this medication. The patient does have numbness in her toes, which are discolored red and cold which is not new. The patient does not feel she has had any permanent nerve damage from her herniated disc in 2009. The following portions of the patient's chart [...] DAILY, Disp: 48 g, Rfl: 3 ??? gabapentin (NEURONTIN) 300 MG capsule, TAKE 1 CAPSULE IN THE MORNING AND 2 CAPSULES IN THE EVENING, Disp: 270 capsule, Rfl: 3 ??? Multiple Vitamins-Minerals (MULTIVITAMIN ADULT PO), , Disp: , Rfl: ??? nystatin (MYCOSTATIN) 104153 UNIT/ML suspension, if needed, Disp: , Rfl: ??? omeprazole (PriLOSEC) [address] capsule, Take 1 capsule by mouth 1 (one) time each day, Disp: , Rfl: Objective Visit Vitals BP 118/66 (BP Location: Right arm, Patient Position: Sitting) Pulse 84 Temp (!) 36 ??C (96.8 ??F) (Temporal) Resp 16 Ht 1.58 m (5' 2.21) Wt 73 kg (160 lb 15 oz) SpO2 96% BMI 29.24 kg/m?? Smoking Status Never Smoker BSA 1.79 m?? GENERAL: The patient is alert, orientated, and in no apparent distress. DIAGNOSTICS: Mammogram and DEXA scan after 06/09/19. Assessment/Plan Kathryn was seen today for consult. Diagnoses and all orders for this visit: Osteopenia, unspecified location (Primary) - Ambulatory External Referral Screening mammogram, encounter for - Ambulatory External Referral Discussed the plan of care with the patient. The patient will proceed with a mammogram and a DEXA scan after 06/09/2019, at [facility] in [place], and the order has been faxed. The patient understands they will contact her to schedule. The patient will continue her calcium supplement and stay active. The patient will trial off the Neurontin first decreasing Neurontin 300 mg once in the morning and 600 in the evening, to 300 mg twice a day x3 weeks; then 300 mg daily x3 weeks and then discontinue. The patient agrees and understands this plan of care. Antonia Aldrich APRN, IVANA documented in this encounter Plan of Treatment Scheduled Referrals Name Type Priority Associated Diagnoses Order S chedule Ambulatory External Outpatient Referral Routine Screening mamm ogram, Ordered: Referral encounter for 04/08/2019 Ambulatory External Outpatient Referral Routine Osteopenia, O rdered: Referral unspecified location 019 documented as of this encounter Visit Diagnoses Diagnosis Osteopenia, unspecified location - Prima ry Screening mammogram, encounter for documented in this encounter Care Teams Brand Planner Relationship Specialty Start Date End Date Antonia Aldrich APRN, BRUISE TRIMMER PCP - General 04/20/18 05/21/20 100 [facility] [address] documented as of this encounter
--- OUTSIDE RECORDS SUMMARY | 2022-05-06 13:07 | XMS_ITS | Encounter Summary ---
:1935 Author Organization [facility] Address [address] [place] [address] Care Team Providers Name Role Phone Antonia Aldrich APRN, CNP Primary Care Provider [phone] Reason for Visit Reason Comments Ear Fullness Encounter Details Date Type Department Care Team Description 11/05/2018 Office Visit Prasanth Hernandez Antonia Aldrich Impacted cerumen of left ear (Primary Dx); [address], [place] Onychomycosis; [place], [place] [address] Coccyx pain; [address] [place] [address] Medication monitoring encounter [phone] Social History Tobacco Use Types Packs/Day Years [...] Sign Reading Time Taken Comments Blood Pressure 128/74 11/05/2018 10:13 AM ROUTE SPECIALIST Pulse 76 11/05/2018 10:13 AM ROUTE SPECIALIST Temperature 35.8 ??C (96.5 ??F) 11/05/2018 10:13 AM ROUTE SPECIALIST Respiratory Rate 16 11/05/2018 10:13 AM ROUTE SPECIALIST Oxygen Saturation 99% 11/05/2018 10:13 AM ROUTE SPECIALIST Inhaled Oxygen Concentration - - Weight 74.3 kg (163 lb 12.8 oz) 11/05/2018 10:13 AM ROUTE SPECIALIST Height 160 cm (5' 2.99) 11/05/2018 10:13 AM ROUTE SPECIALIST Body Mass Index 29.02 11/05/2018 10:13 AM ROUTE SPECIALIST documented in this encounter Patient Instructions Patient InstructionsChharshad Aldrich APRN, CNP - 11/05/2018 10:20 AM ROUTE SPECIALIST Oral medication fungal infection, month liver enzymes Will call you with the lab results E SPECIALIST documented in this encounter Progress Notes Antonia Aldrich APRN, CNP - 11/05/2018 10:20 AM CST Estab Patient Visit Subjective Patient ID: Kathryn Leon is a 83 y.o. female presenting for the following concerns. Chief Complaint Patient presents with ??? Ear Fullness HPI: The patient is a pleasant 83-year-old female presenting ambulatory to the clinical setting today accompanied by her , who is being evaluated for follow-up pneumonia. The patient reports she has had a fullness, plugged, draining sensation in her ears, greater on the left than the right, for an un specified period of time. The patient reports her symptoms are worse at night, particularly in the ear that is dependent on the pillow. The patient reports she has decreased hearing bilaterally. The patient wonders if this is a cerumen impaction, as she has used Q-tips and removed residue. The patientis on Rochelle- D 120 mg twice a day, consistently, and does not feel she has fluid in her ears. The patient is inquiring about starting oral Lamisil for a fungal infection primarily in her toenails, and to a lesser degree in her fingernails, which she has had for the past year. The patient had been on the oral Lamisil for 3-months last summer, tolerated the medication, with almost complete resolution of her symptoms, which are now worsening. The patient has a history of elevated liver enzymes, etiology undetermined, and with close monitoring there was no change in her liver enzymes while beingon the medication last summer, which she tolerated well. The patient reports she has been having coccyx pain for the past week. The patient notices the discomfort when sitting on a hard chair, does not notice the discomfort when sitting on a soft chair, withambulation, nor with any other position/s. The patient inquires if this could be from a recumbent stationary exercise bike routine she started 2 weeks ago, as the night before her symptoms started, shehad done a strenuous exercise workout on the bike. The patient reports she has been biking for [id number] minutes and then walks for 10-15 minutes routinely in the past several weeks. No previous discomfort nor injury. She does not have concerns her symptoms are an infectious process, with pain beingintermittent, and only when sitting on hard surfaces. ROS: INTEGUMENTARY: See HPI. The patient has onychomycosis in her fingernails and toenails, and is inquiring about starting oral Lamisil. EARS: See HPI. The patient has a fullness, plugged, draining sensation in both her ears, worse on the left then the right, for possibly the past couple of months. The patient reports she has noticed worsening symptoms at night, in the ear which is lying against her pillow. The patient has experienced decreased hearing bilaterally. MUSCULOSKELETAL: See HPI. The patient reports she has had coccyx pain for the past week, after starting a new exercise routine, on a recumbent stationary exercise bike, about 2 weeks ago. The patient notices this discomfort when she is sitting on a chair that is hard, does not notice the discomfort when she is sitting in a soft chair, standing, or in any other position. No other injury or concern sabi infectious process. The following portions of the patient's chart were reviewed in this encounter and updated as appropriate: Tobacco Allergies Meds Problems Med Hx Surg Hx Fam Hx Soc Hx Objective Visit Vitals BP 128/74 (BP Location: Left arm, Patient Position: Sitting) Pulse 76 Temp (!) 35.8 ??C (96.5 ??F) (Temporal) Resp 16 Ht 1.6 m (5' 2.99) Wt 74.3 kg (163 lb 12.8 oz) SpO2 99% BMI 29.02 kg/m?? Smoking Status Never Smoker BSA 1.82 m?? GENERAL: The patient is alert, orientated, and in no apparent distress. EARS: Cerumen present in both ears, with a complete cerumen impaction in her left ear. Ear wash complete by nursing staff, ears re-examined with normal canals and TMs bilaterally. INTEGUMENTARY: The patient has whitish discoloration of the distal portion of her fingernails, did not assess the toenails. MUSCULOSKELETAL: The patient declines an examination of her coccyx area. DIAGNOSTICS: Liver enzymes results pending. Assessment/Plan Kathryn was seen today for ear fullness. Diagnoses and all orders for this visit: Impacted cerumen of left ear (Primary) - Ear cerumen removal Onychomycosis - Discontinue: terbinafine (LAMISIL) 250 MG tablet; Take 1 tablet (250 mg total) by mouth 1 (one) time each day Coccyx pain Medication monitoring encounter - Liver panel; Future - Liver panel; Future Discussed the plan of care with the patient. The patient will be notified of her liver enzyme results. The patient will start Lamisil 250 mg daily times 1 month, and then have liver enzymes repeated, order placed. The patient can take [id number] pain relievers for her coccyx pain which is likelyfrom the stationary exercise bike. She could consider changing the routine or repositioning the seat. The patient agrees and understands this plan of care. Antonia Aldrich APRN, CNP E SPECIALIST Sadia Gant MA - 11/05/2018 10:20 AM CSTAssociated Order(s): Ear cerumen removal Nurse Procedure Note Ear cerumen removal Date/Time: 11/05/2018 11:02 AM Performed by: Sadia Gant MA Authorized by: Antonia Aldrich APRN, CNP Consent: Consent obtained: Verbal Consent given by: Patient Risks discussed: Pain, incomplete removal and dizziness Procedure details: Location: L ear Post-procedure details: Inspection: TM intact Hearing quality: Improved Patient tolerance of procedure: Tolerated well, no immediate complications E SPECIALIST documented in this encounter Plan of Treatment Not on filedocumented as of this encounter Procedures Procedure Name Priority Date/Time Associated Diagnosis Comme nts EAR CERUMEN REMOVAL Routine 11/05/2018 10:20 AM Impacted cerum en of Results for this ROUTE SPECIALIST left ear procedure are i n the results section. documented in this encounter Results (ABNORMAL) Liver panel (12/10/2018 10:16 AM CDT) Analysis Performed At [facility] Signature Total Protein 6.8 6.3 - 8.2 12/10/2018 [place] g/dL 6:37 PM [facility] Albumin, Serum 3.8 3.5 - 5.0 12/10/2018 [place] g/dL 6:37 PM [facility] Total Bilirubin <0.7 0.1 - 1.0 12/10/2018 [place] mg/dL 6:37 PM [facility] Bilirubin, <0.1 0.0 - 0.3 12/10/2018 [place] Direct mg/dL 6:37 PM [facility] AST 53 (H) 8 - 43 U/L 12/10/2018 [place] 6:37 PM [facility] Alkaline 57 38 - 128 12/10/2018 [place] Phosphatase U/L 6:37 PM [facility] ALT (SGPT) 70 (H) 0 - 34 U/L 12/10/2018 [place] 6:37 PM [facility] Specimen Anatomical Collection Method Collection Time Receive d Time (Source) Location / / Volume Laterality Blood (Blood, 12/10/2018 10:16 12/10/2018 6:12 Venous) AM CDT PM CDT Antonia Aldrich APRN, CNP LAB BLOOD ORDERABLES Performing Organization Address City/State/ZIP Code Phon e Number [facility] [address] [place] [address] (ABNORMAL) Liver panel (11/05/2018 11:18 AM ROUTE SPECIALIST) Analysis Performed At [facility] Signature Total Protein 6.7 6.3 - 8.2 11/05/2018 [place] g/dL 6:41 PM [facility] Albumin, Serum 4.1 3.5 - 5.0 11/05/2018 [place] g/dL 6:41 PM [facility] Total Bilirubin <0.7 0.1 - 1.0 11/05/2018 [place] mg/dL 6:41 PM [facility] Bilirubin, <0.1 0.0 - 0.3 11/05/2018 [place] Direct mg/dL 6:41 PM [facility] AST 50 (H) 8 - 43 U/L 11/05/2018 [place] 6:41 PM [facility] Alkaline 57 38 - 128 11/05/2018 [place] Phosphatase U/L 6:41 PM [facility] ALT (SGPT) 82 (H) 0 - 34 U/L 11/05/2018 [place] 6:41 PM [facility] Comment: NOTE: Normal range change effective 08/15 Specimen Anatomical Collection Method Collection Time Receive d Time (Source) Location / / Volume Laterality Blood (Blood, 11/05/2018 11:18 11/05/2018 6:41 Venous) AM ROUTE SPECIALIST PM ROUTE SPECIALIST Antonia Aldrich APRN, CNP LAB BLOOD ORDERABLES Performing Organization Address City/State/ZIP Code Phon e Number [facility] [address] [place], [place] [id number] Ear cerumen removal (11/05/2018 10:20 AM [facility]) Narrative Antonia Aldrich APRN, CNP - 019 10:20 AM ROUTE SPECIALIST Antonia Aldrich APRN, CNP ? 11/14/2018 ??3:10 PM Ear cerumen removal Date/Time: 11/05/2018 11:02 AM Performed by: Sadia Gant MA Authorized by: Antonia Aldrich APRN, CNP Consent: ??Consent obtained: ??Verbal ??Consent given by: ??Patient ??Risks discussed: ??Pain, incomplete r emoval and dizziness Procedure details: ??Location: ??L ear Post-procedure details: ??Inspection: ??TM intact ??Hearing quality: ??Improved ??Patient tolerance of procedure: ??Radha erated well, no immediate complications Antonia Aldrich APRN, RETAIL CLERK IN CLINIC/BEDSIDE ORDERAB LES documented in this encounter Visit Diagnoses Diagnosis Impacted cerumen of left ear - Primary Impacted cerumen Onychomycosis Dermatophytosis of nail Coccyx pain Other disorder of coccyx Medication monitoring encounter Encounter for therapeutic drug monitorin g documented in this encounter Care Teams Hand Endband Cutter Relationship Specialty Start Date End Date Antonia Aldrich APRN, RETAIL CLERK PCP - General 04/20/18 05/21/20 [address] [place] [address] documented as of this encounter
--- OUTSIDE RECORDS SUMMARY | 2022-05-06 13:07 | XMS_ITS | Encounter Summary ---
:1935 Author Organization [facility] Address [address] [place] [address] Care Team Providers Name Role Phone Antonia Aldrich CERTIFIED OPHTHALMIC MEDICAL TECHNICIAN, LAND MANAGEMENT FORESTER Primary Care Provider [phone] Reason for Visit Reason Onset Date Comments prescription 11/10/2018 Encounter Details Date Type Department Care Team Description 11/10/2018 Telephone Prasanth Hernandez Antonia Aldrich, prescription [address] CERTIFIED OPHTHALMIC MEDICAL TECHNICIAN, [place] [address] [address] [facility] [address] [phone] [place], [place] [address] Social History Tobacco Use [...] Telephone Encounter - Amber Jon RN - 11/10/2018 12:53 PM CST Left detailed message that this was reprocessed and to call if necessary. NING SOLUTIONS SPECIALIST Telephone Encounter - Antonia Aldrich APRN, IVANA - 11/10/2018 11:54 AM LEARNING SOLUTIONS SPECIALIST Please let the patient know this was resent today, and she should let us know if they do not receiveit. Thanks, Harman NING SOLUTIONS SPECIALIST Telephone Encounter - Lyric Cox RN - 11/10/2018 11:25 AM CST Rx was sent but not received by pharmacy for Lamisil. Please resend prescription to [facility] pharmacy. Thank you NING SOLUTIONS SPECIALIST Telephone Encounter - Faviola Ivy - 11/10/2018 10:59 AM CST Pt called stating harman Aldrich was supposed to have sent a prescription to [facility] pharmacy when she was in on Thursday, and they still do not have it. Please check Rx status and call Pt as necessary. NING SOLUTIONS SPECIALIST documented in this encounter Plan of Treatment Not on filedocumented as of this encounter Visit Diagnoses Diagnosis Onychomycosis Dermatophytosis of nail documented in this encounter Care Teams Key Carrier Relationship Specialty Start Date End Date Antonia Aldrich APRN, LAND MANAGEMENT FORESTER PCP - General 04/20/18 05/21/[address] [place] [id number] documented as of this encounter
--- OUTSIDE RECORDS SUMMARY | 2022-05-06 13:07 | XMS_ITS | Encounter Summary ---
:1935 Author Organization [facility] Address [address] [place] [address] Care Team Providers Name Role Phone Antonia Aldrich APRN, SWATCH CLERK Primary Care Provider [phone] Reason for Visit Reason Onset Date Comments med refill needed 09/30/2018 Encounter Details Date Type Department Care Team Description 09/30/2018 Telephone Prasanth Hernandez Antonia Aldrich, med refill needed [address] [place], [place] [address] [address] [facility] [address] [phone] [place], [place] [address] Social History Tobacco Use [...] Telephone Encounter - Rosa Wells LPN - 09/30/2018 2:58 PM CST Faxed ESS CONSULTANT Telephone Encounter - Antonia Aldrich APRN, IVANA - 09/30/2018 2:21 PM FITNESS CONSULTANT Ok this has been signed. Harman Farris ESS CONSULTANT Telephone Encounter - Rosa Wells LPN - 09/30/2018 1:39 PM CST The patient would like Rochelle D sent to [facility] (the whole prescription). They are having issues with [facility]. ESS CONSULTANT Telephone Encounter - Rosa Wells LPN - 09/30/2018 10:35 AM CST Called and left a message. The we received a request for fill from [facility] we have NOT received one from [facility]. Would the patient like it all filled at [facility] in [place] or would she like apartial sent there till [facility] mails hers to her home? ESS CONSULTANT Telephone Encounter - Faviola Ivy - 09/30/2018 10:25 AM CST Pt called stating she put in a refill request for her Rochelle D at the [facility] pharmacy and it has not been received yet. Pt is needing this today if possible. ESS CONSULTANT documented in this encounter Plan of Treatment Not on filedocumented as of this encounter Visit Diagnoses Diagnosis Allergic rhinitis, unspecified seasonali ty, unspecified trigger documented in this encounter Care Teams Home Health Attendant Relationship Specialty Start Date End Date Antonia Aldrich APRN, SWATCH CLERK PCP - General 04/20/18 05/21/20 [address] [facility] [place] [address] documented as of this encounter
--- OUTSIDE RECORDS SUMMARY | 2022-05-06 13:08 | XMS_ITS | Encounter Summary ---
:1935 Author Organization [facility] Address [address] [place] [address] Care Team Providers Name Role Phone Elsewhere, Pcp Primary Care Provider Unavailable Encounter Details Date Type Department Care Team Description 07/09/2021 Immunization Department of [facility] Matty Wilkinson, Medicine, [place] M.D. Professional Building, in [address] [place] [address] [place] [address] [address] [id number] [place] [address] [phone] Social History Tobacco Use Types Packs/Day Years Used Date Smoking Tobacco: Never Smokeless Tobacco: Never Alcohol Use Standard Drinks/Week Comments Not Currently 0 (1 standard drink = 0.6 oz pure alcoho l) Sex Assigned at Date Recorded Not on file documented as of this encounter Plan of Treatment Not on filedocumented as of this encounter Visit Diagnoses Not on filedocumented in this encounter Care Teams Enamel Sprayer Relationship Specialty Start Date End Date Elsewhere, Pcp PCP - General Family Medicine 01/31/21 documented as of this encounter
--- OUTSIDE RECORDS SUMMARY | 2022-05-06 13:08 | XMS_ITS | Encounter Summary ---
:1935 Author Organization [facility] Address [address] [place] [address] Care Team Providers Name Role Phone Elsewhere, Pcp Primary Care Provider Unavailable Reason for Visit Reason Comments Extremity Laceration Pt presents to ED with left leg laceration after slipping on concrete step. Pt denies hit ting head or loc. Encounter Details Date Type Department Care Team Description 02/16/2021 Emergency [facility] Jd Bobby, Laceration Lower Leg Department P.A.-C. Without Foreign Body [address] [place] [address] Initial Left (Primary VAUGHN [place] [facility] Dx) [id number] VAUGHN [place] [phone] Social History Tobacco Use Types Packs/Day Years Used Date Smoking Tobacco: Never Smokeless Tobacco: Never Alcohol Use Standard Drinks/Week Comments Not Currently 0 (1 standard drink = 0.6 oz pure alcoho l) Sex Assigned at Date Recorded Not on file documented as of this encounter Last Filed Vital Signs Vital Sign Reading Time Taken Comments Blood Pressure 125/61 02/16/2021 8:30 PM CDT Pulse 74 02/16/2021 8:30 PM CDT Temperature 36.6 ??C (97.9 ??F) 02/16/2021 7:45 PM CDT Respiratory Rate 18 02/16/2021 7:45 PM CDT Oxygen Saturation 95% 02/16/2021 8:30 PM CDT Inhaled Oxygen Concentration - - Weight 71.7 kg (158 lb 1.1 oz) 02/16/2021 7:47 PM CDT Height - - Body Mass Index 28.72 02/04/2021 12:31 PM CDT documented in this encounter Discharge Instructions AttachmentsThe following attachments cannot be sent through Care Everywhere. Laceration Care Adult (Malawian)documented in this encounter Medications at Time of Discharge Medication Sig Dispensed Refills Start Date End Date calcium Take 1 tablet by mouth 0 carbonate-vitamin D3 2 (two) times a day 1,500 mg (600 mg with meals. calcium)-10 mcg (400 Unit) per tablet CYANOCOBALAMIN, Take 1,000 mcg by mouth 0 011 VITAMIN B-12, ORAL daily. cycloSPORINE Administer 1 drop into 0 (RESTASIS) 0.05 % both eyes 2 (two) times ophthalmic emulsion a day. dorzolamide-timoloL Administer 1 drop into 0 (COSOPT) 22.3-6.8 the right eye daily. mg/mL ophthalmic solution ferrous sulfate 325 mg Take 1 tablet by mouth 0 0 11/02/2013 (65 mg iron) tablet daily. fexofenadine-pseudoeph Take 1 tablet by mouth 0 edrine (MING-D) 2 (two) times a day. 60-120 mg per 12 hr tablet fluticasone propionate Administer 2 sprays 16 g 12 04/16 (FLONASE) 50 into each nostril daily mcg/actuation nasal as needed for rhinitis spray or allergies. meclizine (ANTIVERT) Take 25 mg by mouth as 0 25 mg tablet needed. MULTIVITAMIN ORAL Take 1 tablet by mouth 0 2010 daily. omeprazole (PriLOSEC) Take 1 capsule by mouth 0 0 05/20/[address] capsule daily. traMADoL (ULTRAM) 50 Take 1 tablet (50 mg 12 tablet 0 02/1602/26/2021 mg tabletIndications: total) by mouth every 6 Acute Pain (six) hours as needed for pain for up to 10 days Indications: acute pain. alendronate (FOSAMAX) TAKE 1 TABLET EVERY 7 12 tablet 3 02/19/2021 70 mg tablet DAYS (WEEKLY) ON AN EMPTY STOMACH, REMAIN UPRIGHT FOR AT LEAST 30 MINUTES EPINEPHrine (EPIPEN Inject 0.3 mg 0 04/10/2017 2-KRISTIN) 0.3 mg/0.3 mL intramuscularly as injection syringe needed for anaphylaxis. ondansetron ODT Take 4 mg by mouth 0 05/14/2019 0 03/26/2021 (ZOFRAN-ODT) 4 mg daily as needed disintegrating tablet (vertigo). documented as of this encounter Procedure Notes Jd Bobby P.A.-C. - 02/16/2021 8:41 PM CDTAssociated Order(s): Laceration Repair Procedure Laceration Repair Date/Time: 02/16/2021 9:22 PM Performed by: Jd Bobby P.A.-C. Authorized by: Jd Bobby P.A.-C. PROCEDURE DETAILS Repair type: Simple Hemostasis achieved with: Direct pressure Wound exploration: wound explored through full range of motion and entire depth of wound probed and visualized Wound extent: fascia not violated, no foreign body, no signs of injury, no nerve damage, no tendon damage, no underlying fracture and no vascular damage Repair method: Steri-Strips Number of Steri-Strips: 6 Approximation: Loose CONSENT Consent obtained: verbal The benefits, risks and alternatives to the procedure and the potential need for sedation or anesthesia as well as the names, roles, and responsibilities of healthcare team members performing significant interventional tasks were discussed with the patient and/or decision maker. SEDATION / ANESTHESIA Anesthesia method: local infiltration Local infiltrate type: see MAR for dose PRE PROCEDURE DETAILS Indication: laceration and skin tear Location: Leg Leg location: Left lower leg Length (cm): 15 Circulation distal to injury: capillary refill < 2 sec, warm, pink and palpable pulse Movement distal to injury: normal Sensation distal to injury: normal Area cleansed with: Povidone/iodine Amount of cleaning: Extensive Irrigation solution: Sterile saline Irrigation method: Pressure wash POST PROCEDURE DETAILS Procedure completed successfully: yes Tetanus status up to date: No Dressing Applied: yes Dressing applied: Non-stick sterile dressing Wrapped with: Coban Circulation distal to injury: capillary refill < 2 sec, warm, pink and palpable pulse Movement distal to injury: normal Sensation distal to injury: normal Complications: no immediate complications Jd Bobby P.A.-C. 02/16/212122 documented in this encounter ED Notes Jd Bobby P.A.-C. - 02/16/2021 8:41 PM CDT Images from the original note were not included. SUBJECTIVE CHIEF COMPLAINT/REASON FOR VISIT Extremity Laceration (Pt presents to ED with left leg laceration after slipping on concrete step. Ptdenies hitting head or loc.) HISTORY OF PRESENT ILLNESS 85-year-old female presents ER with complaints of laceration to left leg after slipping on consult create stepped just prior to arrival. Patient denies any other injuries. Last tetanus was over 10 years ago. REVIEW OF SYSTEMS Constitutional: Negative for appetite change and fever. HENT: Negative for ear pain, rhinorrhea and sore throat. Eyes: Negative for visual disturbance. Respiratory: Negative for cough, shortness of breath and wheezing. Cardiovascular: Negative for chest pain. Gastrointestinal: Negative for abdominal pain, diarrhea and vomiting. Genitourinary: Negative for dysuria and frequency. Musculoskeletal: Negative for back pain. Negative except for HPI Skin: Positive for wound. Neurological: Negative for headaches. All other systems reviewed and are negative. OBJECTIVE Initial Vitals [02/16/211944] Temperature Pulse Rate Heart Rate Resp Rate Blood Pressure SpO2 36.6 ??C 80 -- 18 143/65 96 % Pain Score 7 PHYSICAL EXAMINATION Constitutional: Nursing note and vitals reviewed. HENT: Head: Normocephalic and atraumatic. Nose: Nose normal. Mouth/Throat: Oropharynx is clear and moist. Mucous membranes are moist. Neck: Neck supple. Cardiovascular: Normal rate, regular rhythm, S1 normal, S2 normal and normal heart sounds. Pulmonary/Chest: Effort normal and breath sounds normal. Abdominal: Soft. Bowel sounds are normal. There is no abdominal tenderness. Musculoskeletal: Cervical back: Neck supple. Legs: Comments: Neurovascularly intact distally Neurological: Alert and oriented to person, place, and time. Skin: Skin is warm. ASSESSMENT/PLAN IMPRESSION AND PLAN 85-year-old female accidentally slipped while going up a concrete step causing a 15 cm skin avulsion/laceration to her left lower extremity that occurred just prior to arrival. Tetanus out of date and was updated in the ER today. The skin involved in the avulsion is quite thin secondary to age. No active bleeding. No foreign bodies. The area was irrigated extensively. Avulsion/ laceration was repaired with Steri-Strips as the patient's skin was too thin to adequately suture. Extensive patient Education regarding wound care and the possibility of poor blood supply to the avulsed skin leading to future compromise of the skin flap and the possible need for debridement if that occurs as well as all pos sible treatment options and wound care options going forward. Patient verbalized understanding of all instructions. She is well established with local PCP and will follow-up with the same on Thursday. She return to the ER immediately if new symptoms develop, current symptoms worsen, symptoms fail to improve, patient becomes concerned. Patient is discharged in good condition. DIFFERENTIAL DIAGNOSIS Laceration, avulsion, wound. I reviewed previous medical records including documentation from previous visits. Final Diagnoses: as of Feb 16 2121 Laceration Lower Leg Without Foreign Body Initial Left Jd Bobby P.A.-C. 02/16/212120 documented in this encounter Plan of Treatment Not on filedocumented as of this encounter Procedures Procedure Name Priority Date/Time Associated Diagnosis Comme nts LACERATION REPAIR Routine 02/16/2021 9:22 PM Resu lts for this CDT procedure are i n the results section. documented in this encounter Results Laceration Repair (02/16/2021 9:22 PM CDT) Narrative Jd Bobby P.A.-C. - 02/16/2021 9 :22 PM CDT Jd Bobby P.A.-C. ? 02/16/2021 ??9:23 PM Laceration Repair Date/Time: 02/16/2021 9:22 PM Performed by: Jd Bobby P.A.-C. Authorized by: Jd Bobby P.A.-C. PROCEDURE DETAILS Repair type: ??Simple Hemostasis achieved with: ??Direct press ure Wound exploration: wound explored throug h full range of motion and entire depth of wound probed and visualized ?? Wound extent: fascia not violated, no fo reign body, no signs of injury, no nerve damage, no tendon damage, no under lying fracture and no vascular damage ?? Repair method: ??Steri-Strips Number of Steri-Strips: ??6 Approximation: ??Loose CONSENT Consent obtained: verbal The benefits, risks and alternatives to the procedure and the potential need for sedation or anesthesia as well as the names, roles, and responsibilities of healthcare team memb ers performing significant interventional tasks were discussed with the patient and/or decision maker. SEDATION / ANESTHESIA Anesthesia method: local infiltration Local infiltrate type: see MAR for dose PRE PROCEDURE DETAILS Indication: laceration and skin tear ?? Location: ??Leg Leg location: ??Left lower leg Length (cm): ??15 Circulation distal to injury: capillary refill < 2 sec, warm, pink and palpable pulse ?? Movement distal to injury: normal ?? Sensation distal to injury: normal ?? Area cleansed with: ??Povidone/iodine Amount of cleaning: ??Extensive Irrigation solution: ??Sterile saline Irrigation method: ??Pressure wash POST PROCEDURE DETAILS Procedure completed successfully: yes ?? Tetanus status up to date: ??No Dressing Applied: yes ?? Dressing applied: ??Non-stick sterile dr roberts Wrapped with: ??Coban Circulation distal to injury: capillary refill < 2 sec, warm, pink and palpable pulse ?? Movement distal to injury: normal ?? Sensation distal to injury: normal ?? Complications: no immediate complication s ?? Jd Bobby P.A.-C. PROCEDURE/MINOR SURGICAL ORD ERABLES documented in this encounter Visit Diagnoses Diagnosis Laceration Lower Leg Without Foreign Bod y Initial Left - Primary documented in this encounter Active and Recently Administered Medications Times are shown in CDT. Scheduled Medication Order 02/14/2021 02/15/2021 02/16/2021 lidocaine 10 mg/mL (1 %) injection 10 mL (XYLOCAINE) 1956 (Due) 10 mL, infiltration, Once, On 02/16/21 at 1956, For 1 dose documented in this encounter Care Teams Wildlife Protector Relationship Specialty Start Date End Date Elsewhere, Pcp PCP - General Family Medicine 01/31/21 documented as of this encounter
--- OUTSIDE RECORDS SUMMARY | 2022-05-06 13:08 | XMS_ITS | Encounter Summary ---
:1935 Author Organization [facility] Address [address] [place] [address] Care Team Providers Name Role Phone Elsewhere, Pcp Primary Care Provider Unavailable Reason for Referral MRI/CAT/PET Scan (Routine) - Closed Specialty Diagnoses / Procedures Referred By Contact Refer red To Contact Radiology Diagnoses Lesion Brain Candido Deutsch [facility] Procedures MR Brain without and with IV Contrast Kenton Sage [address] [place] [phone] Referral ID Status Reason Start Date Expiration Date Visits Requ ested Visits Authorized [id number] Closed 02/04/2021 02/04/2022 1 1 Reason for Visit Outpatient (Routine) - Closed Specialty Diagnoses / Procedures Referred By Contact Refer red To Contact Neurology Diagnoses Vertigo Rio Shah M.D. [address] [phone] Referral ID Status Reason Start Date Expiration Date Visits V isits Requested Authorized [id number] Closed Specialty 01/30/2021 01/30/2022 1 1 Services Required Encounter Details Date Type Department Care Team Description 02/04/2021 Comprehensive Visit Department of Jamal trivedi (Primary Dx); Neurology in , Candido Sage, Lesion Brain Kenton Tr[place] [address] [place] [address] [place] [phone] Social History Tobacco Use Types Packs/Day Years Used Date Smoking Tobacco: Never Smokeless Tobacco: Never Alcohol Use Standard Drinks/Week Comments Not Currently 0 (1 standard drink = 0.6 oz pure alcoho l) Sex Assigned at Date Recorded Not on file documented as of this encounter Last Filed Vital Signs Vital Sign Reading Time Taken Comments Blood Pressure - - Pulse - - Temperature 36 ??C (96.8 ??F) 02/04/2021 12:31 PM CDT Respiratory Rate - - Oxygen Saturation - - Inhaled Oxygen Concentration - - Weight 69 kg (152 lb 1.9 oz) 02/04/2021 12:31 PM CDT Height 158 cm (5' 2.21) 02/04/2021 12:31 PM CDT Body Mass Index 27.64 02/04/2021 12:31 PM CDT documented in this encounter Consult Notes Tim-Candido Slaughter M.D. - 02/04/2021 1:00 PM CDT SUBJECTIVE Referring Provider: Rio Shah M.D. CHIEF COMPLAINT / REASON FOR VISIT Vertigo. HISTORY OF PRESENT ILLNESS Mrs. Kathryn Leon is an 85-year-old woman whom I saw in Neurology Clinic for another opinion of recurrent episodes of vertigo. I reviewed the electronic health record, which does not indicate any previous interactions with [facility]. I reviewed a recent MRI scan of the brain, and my interpretation is below. I interviewed Mrs. Leon, who was unaccompanied today. Mrs. Leon has had several episodes of acute room-spinning vertigo. The most recent of these was last week, onset around 8 p.m. Thursday evening while she was talking on the phone. This was more abrupt in onset than her episodes, which were otherwise identical to this one. She reports room spinning that is worsened with any head movement and can be temporarily alleviated with sitting completely still with eyes closed. I believe the message had been received differently while she was in hospital. She clarifies today that indeed she does not have continuous vertigo during a bout of symptoms, but rather vertigo triggered by any head or body movement that can be temporarily alleviated by remaining still. Episodes in the past have always been relieved by Shabana maneuvers, though sometimes several wererequired. She had nausea and dry heaving with the most recent episode, but no other symptoms. Specifically, no weakness, no sensory loss, no double vision, and no dysphagia. Because she could not walk,EMS was activated, and she was taken to the Emergency Department. Her only other recent complaint has been of aural plugging and a sensation of wetness in the ears with no visible drainage. Her vertigois nearly gone today. While in hospital, MRI of the brain was obtained and showed a punctate possible DWI abnormality withassociated gadolinium enhancement in the left inferior parietal lobe. No brainstem or posterior fossa lesions that might cause vertigo. Mrs. Leon was referred to Neurology Clinic for assessment of vertigo, given its recurrent nature will be. The following portions of the patient's history were reviewed and updated as appropriate: allergies,current medications, family history, medical history, social history, surgical history and problem list. Ten point review of systems was completed and was negative other than as noted in the HPI. SOCIAL HISTORY Mrs. Leon this with her of 64 years in [place], [place]. She is a never smoker. FAMILY HISTORY Mrs. Leon has 3 children, all sons, and 7 grandchildren, all healthy. OBJECTIVE PHYSICAL EXAM I have reviewed vital signs as recorded in the EPIC record. General: Trim adult woman who looks younger than her stated age of 85 years. Dressed in sweater and slacks. Unaccompanied. Examined in Neurology Clinic on [facility]. Neuro: I did a focused neurologic exam today. Cranial nerves are normal with the exception of a positive head impulse test to the left. No nystagmus during smooth pursuit. Normal saccades. No skew withcover-uncover test. She has a surgical right pupil but normal left pupil light responses. Fundi normal. Facial sensation and strength normal. Hearing diminished -2 bilaterally. Palate elevates midline.Normal sternocleidomastoid strength bilaterally. Tongue protrudes midline. Gait is normal, includingtoes and heels. Tandem moderately impaired. Pull test negative. We deferred the Jimmy-Hallpike test today out of fear of triggering vertigo just as she is recover or ing and since a sign of peripheral vestibulopathy had already been seen. ASSESSMENT / PLAN DATA See [facility] for description of MRI from January 30, 2021. WHAT IS THIS and WHAT TO DO? Mrs. Leon is an 85-year-old woman with recurrent episodes of room-spinning vertigo highly suggestive of benign paroxysmal positional vertigo (BPPV). Today, she has a positive head impulse test localizing the problem to the periphery. In the hospital, she was described as having right beating nystagmus without direction change. Many times in the past, she has had improvement of symptoms with the Shabana maneuver. The johnson difference between the history obtained in the hospital and the history today is that she can get relief with keeping her head perfectly still and eyes closed, and has recurrence of symptoms as soon as she moves her head (i.e., head-motion triggered vertigo). Because of bilateral h earing loss and the recurrent nature of her BPPV, I believe it is appropriate to proceed with the ENT evaluation as scheduled later this week. The MRI lesion is incidental and asymptomatic. We will repeat MRI brain without and with gadolinium contrast in approximately 6 weeks. If the lesion is resolved, as one would expect with a tiny ischemic stroke, I will encourage her to continue aspirin 81 mg daily unless she has any bleeding complications. If she is not already taking aspirin or another blood thinner, she should start 81 mg daily now (in an abundance of caution given the possibility that the MRI finding represents a small, asymptomatic stroke). If the lesion persists, then additional testing will be required. I will communicate with Mrs. Leon after the MRI scan in March. PATIENT EDUCATION Ready to learn. No apparent learning barriers were identified. Learning preferences include listening. I explained the diagnosis and treatment plan. The patient expressed understanding of the content. DIAGNOSES #1 Benign paroxysmal positional vertigo (BPPV), recurrent, improved #2 Punctate left inferior parietal enhancing lesion, asymptomatic, possible subacute ischemic infarct documented in this encounter Plan of Treatment Not on filedocumented as of this encounter Results MR Brain without and with IV Contrast (03/21/2021 11:11 AM CDT) Anatomical Region Laterality Modality Head, Brain, Neuroradiology RST LOS, Neuroradiology RIOS N/A Magnetic Resonance LOS, Neuroradiology FLA LOS Specimen (Source) Anatomical Collection Method Collection Time Re ceived Time Location / / Volume Laterality 03/21/2021 11:55 AM CDT Impressions 03/21/2021 12:22 PM CDT Stable findings. Redemonstration of punctate focus of restricted diffusion with subtle enhancement of the subcortical wh ite matter of the inferior left parietal lobe. Although sequela of infarct is not excluded, there is no appreciable change since 01/30/2021, and MRI infarct evolution findings would have been expected. No enlarging mass lesion or pe rilesional edema is identified. Recommend follow-up for stability or elton lution. Narrative 03/21/2021 12:22 PM CDT EXAM: MR BRAIN WITHOUT AND WITH IV CONTRAST COMPARISON:01/30/2021 MRI FINDINGS: Punctate focus of restricted diffusion o f the inferior left parietal lobe subcortical white matter, series 4 image 21, without associated low signal on ADC. Previously identified punctate focu s of enhancement in this region is faintly identified, example series 9 mary ge 83. There is no associated susceptibility artifact or perilesional edema. No additional foci of abnormal restricte d diffusion. Focal region of susceptibility artifact in the inferior left temporal lobe, most compatible with chronic microhemorrhage. Mild generalized volume loss. Ventricles are not enlarged out of proportion to the degree of volume loss. 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 No mastoid effusion. No abnormal enhancing lesions Procedure Note Jd Forbes M.D. - 03/21/2021Formatt ing of this note might be different from the original. EXAM: MR BRAIN WITHOUT AND WITH IV CONTR AST COMPARISON:01/30/2021 MRI FINDINGS: Punctate focus of restricted diffusion o f the inferior left parietal lobe subcortical white matter, series 4 image 21, without associated low signal on ADC. Previously identified punctate focu s of enhancement in this region is faintly identified, example series 9 mary ge 83. There is no associated susceptibility artifact or perilesional edema. No additional foci of abnormal restricte d diffusion. Focal region of susceptibility artifact in the inferior left temporal lobe, most compatible with chronic microhemorrhage. Mild generalized volume loss. Ventricles are not enlarged out of proportion to the degree of volume loss. 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 No mastoid effusion. No abnormal enhancing lesions IMPRESSION: Stable findings. Redemonstration of punc abrams focus of restricted diffusion with subtle enhancement of the subcortical wh ite matter of the inferior left parietal lobe. Although sequela of infarct is not excluded, there is no appreciable change since 01/30/2021, and MRI infarct evolution findings would have been expected. No enlarging mass lesion or pe rilesional edema is identified. Recommend follow-up for stability or elton lution. Candido LLANES MRI PROCEDURES documented in this encounter Visit Diagnoses Diagnosis Vertigo - Primary Lesion Brain Lesion Brain documented in this encounter Care Teams Guidance And Control System Engineer Relationship Specialty Start Date End Date Elsewhere, Pcp PCP - General Family Medicine 01/31/21 documented as of this encounter
--- OUTSIDE RECORDS SUMMARY | 2022-05-06 13:08 | XMS_ITS | Encounter Summary ---
:1935 Author Organization [facility] Address [address] [place] [address] Care Team Providers Name Role Phone Elsewhere, Pcp Primary Care Provider Unavailable Reason for Visit Reason Comments Med Refill Encounter Details Date Type Department Care Team Description 01/20/2022 Refill Division of Endocrinology in Arin Sandoval M.D., Med Refill [place], [place] Ph.D. [address] [place] [address] [place] [phone] [place] [address] [phone] (Wo rk) Social History Tobacco Use Types Packs/Day Years Used Date Smoking Tobacco: Never Smokeless Tobacco: Never Alcohol Use Standard Drinks/Week Comments Not Currently 0 (1 standard drink = 0.6 oz pure alcoho l) Sex Assigned at Date Recorded Not on file documented as of this encounter Miscellaneous Notes Telephone Encounter - Amos Nevarez RChelsey - 01/21/2022 11:03 AM CDT Prescription renewal request did not meet nurse protocol because: patient has not been seen within the past 12 months in the Department of Endocrinology . Prescription refill request sent to Endocrine provider for further review. Protocol utilized: Prescription Renewal Request for Medications: Division of Endocrinology, Diabetes, Metabolism and Nutrition. documented in this encounter Plan of Treatment Not on filedocumented as of this encounter Visit Diagnoses Not on filedocumented in this encounter Care Teams Purchasing Buyer Relationship Specialty Start Date End Date Elsewhere, Pcp PCP - General Family Medicine 01/31/21 documented as of this encounter
--- OUTSIDE RECORDS SUMMARY | 2022-05-06 13:08 | XMS_ITS | Encounter Summary ---
:1935 Author Organization [facility] Address [address] [place] [address] Care Team Providers Name Role Phone Elsewhere, Pcp Primary Care Provider Unavailable Reason for Referral Outpatient (Routine) - Authorized Specialty Diagnoses / Procedures Referred By Contact Refer red To Contact Dermatology Adelaida Quintana M.D . [address] [phone] Referral ID Status Reason Start Date Expiration Date Visits V isits Requested Authorized [id number] Authorized 11/19/2021 11/19/2022 1 1 Scheduling Instructions Full skin cancer screening exam in 3 thu ODE MAKER Reason for Visit Reason Comments Lesion Appointment Request (Routine) - Closed Specialty Diagnoses / Procedures Referred By Contact Refer red To Contact Family Medicine Referral ID Status Reason Start Date Expiration Date Visits Requ ested Visits Authorized [id number] Closed 09/09/2021 09/09/2022 1 1 Encounter Details Date Type Department Care Team Description 11/19/2021 Office Visit Department of Adelaida Quintana, Keratosis Seborrheic (Primary Dx); Dermatology in Prasanth Jha [address] [phone] Social History Tobacco Use Types Packs/Day Years Used Date Smoking Tobacco: Never Smokeless Tobacco: Never Alcohol Use Standard Drinks/Week Comments Not Currently 0 (1 standard drink = 0.6 oz pure alcoho l) Sex Assigned at Date Recorded Not on file documented as of this encounter Consult Notes Adelaida Quintana M.D. - 11/19/2021 3:00 PM CST SUBJECTIVE CHIEF COMPLAINT / REASON FOR VISIT Lesions x 3 involving face HISTORY OF PRESENT ILLNESS Kathryn Leon is a pleasant 86 y.o. female who presents today for an evaluation of an evaluation of a lesions x 3 involving the left lower cheek and left jawline as well as a lesion involving the chin. This is my first time seeing this patient in Dermatology clinic today. She has not been seen by [facility] since 2001. She denies a personal history of skin cancer or family history for melanoma. She does not use sunscreen, but does wear a hat often. Today the patient states that the lesion involving the left lower cheek has been present for eight months and has been increasing in size. She reports the lesion involving the jawline has been present for a few months. The lesion involving the chin she says has been there for several years. MEDICAL HISTORY Negative for skin cancer FAMILY HISTORY Negative for melanoma OBJECTIVE PHYSICAL EXAMINATION General: Awake, alert, in no acute distress, and with appropriate affect. Skin: Limited skin exam done today as patient wanted facial lesions evaluated today. Examination of the left lower cheek and left frontal jawline reveals two light- brown slightly verrucous papules, compatible with seborrheic keratoses. Examination of the right cheek and right upper lateral neck reveals some seborrheic keratoses. Examination of the right lower chin reveals a dermal nevus. ASSESSMENT / PLAN #1 Left lower cheek, left frontal jawline, right cheek and right upper lateral neck: Seborrheic keratoses The benign nature of the skin lesion(s) was discussed with the patient. No treatment is required. I recommend continued observation. Should this lesion change in size, color, texture, or shape or develop symptoms such as itching or bleeding, I recommend an immediate return visit for reassessment. #2 Right lower chin: Dermal nevus The ABCDE criteria for melanoma was reviewed with the patient. This nevus does not reach the clinical threshold for biopsy. I recommend continued sun protection, self-skin examinations, and observation. Should any of the patient's nevi change in size, color, texture, or shape or develop symptoms such as itching or bleeding, I recommend an immediate return visit for reassessment. Follow up in 3 monthsfor a full skin cancer screening. PATIENT EDUCATION: Ready to learn. No apparent learning barriers were identified. Learning preferences include listening. Explained diagnosis and treatment plan; patient/guardian of patient expressed understanding of thecontent. By signing my name below, I, Danni Tinajero, attest that this documentation has been prepared under the direction and in the presence of Adelaida Quintana M.D. Electronically Signed: giancarlo Lagunas. 11/11/2021. 3:01 PM CATHODE MAKER. I, Adelaida Quintana M.D., personally performed the services described in this documentation. All medical record entries made by the scribe were at my direction and in my presence. I have reviewed the chart and discharge instructions (if applicable) and agree that the record reflects my personal performance and is accurate and complete. Adelaida Quintana M.D. ODE MAKER documented in this encounter Plan of Treatment Scheduled Referrals Name Type Priority Associated Order Schedule Diagnoses Dermatology office Outpatient Referral Routine Ex pected: visit (clinic) 02/19/2022 (Approximate), Expires: 02/19/2023 documented as of this encounter Visit Diagnoses Diagnosis Keratosis Seborrheic - Primary Nevi Multiple documented in this encounter Care Teams Unit Aid Relationship Specialty Start Date End Date Elsewhere, Pcp PCP - General Family Medicine 01/31/21 documented as of this encounter
--- OUTSIDE RECORDS SUMMARY | 2022-05-06 13:08 | XMS_ITS | Encounter Summary ---
:1935 Author Organization [facility] Address [address] [place] [address] Care Team Providers Name Role Phone Elsewhere, Pcp Primary Care Provider Unavailable Reason for Referral Outpatient (Routine) - Closed Specialty Diagnoses / Procedures Referred By Contact Refer red To Contact Diagnoses Pain Hip Left Mary Cortez APRN, [facility] [place] [facility] Procedures DX Hip And Pelvis Left 2-3 Views C.N.P., D.N.P. [address] [place] [phone] Referral ID Status Reason Start Date Expiration Date Visits Requ ested Visits Authorized [id number] Closed 03/04/2022 03/04/2023 1 1 Reason for Visit Outpatient (Routine) - Closed Specialty Diagnoses / Procedures Referred By Contact Refer brannon To Contact Diagnoses Pain Hip Left Mary Cortez APRN, [facility] [place] [facility] Procedures DX Hip And Pelvis Left 2-3 Views C.N.P., D.N.P. [address] [place] [address] Referral ID Status Reason Start Date Expiration Date Visits Requ ested Visits Authorized [id number] Closed 03/04/2022 03/04/2023 1 1 Encounter Details Date Type Department Care Team Description 03/04/2022 Hospital Encounter Department of Radiology Diego, Darc y L, Pain Hip Left in [place], CONSERVATION ENFORCEMENT OFFICER, C.N.P., [place] D.N.P. [address] [place] [phone] Social History Tobacco Use Types Packs/Day Years Used Date Smoking Tobacco: Never Smokeless Tobacco: Never Alcohol Use Standard Drinks/Week Comments Not Currently 0 (1 standard drink = 0.6 oz pure alcoho l) Sex Assigned at Date Recorded Not on file documented as of this encounter Medications at Time of Discharge Medication Sig Dispensed Refills Start Date End Date alendronate (FOSAMAX) TAKE 1 TABLET EVERY 7 12 tablet 3 70 mg tablet DAYS (WEEKLY) ON AN EMPTY STOMACH, REMAIN UPRIGHT FOR AT LEAST 30 MINUTES calcium Take 1 tablet by mouth 2 0 carbonate-vitamin D3 (two) times a day with 1,500 mg (600 mg meals. calcium)-10 mcg (400 Unit) per tablet colchicine (COLCRYS) 0 10/21/2021 0.6 mg tablet CYANOCOBALAMIN, Take 1,000 mcg by mouth 0 011 VITAMIN B-12, ORAL daily. cycloSPORINE Administer 1 drop into 0 (RESTASIS) 0.05 % both eyes 2 (two) times ophthalmic emulsion a day. dorzolamide-timoloL Administer 1 drop into 0 (COSOPT) 22.3-6.8 the right eye daily. mg/mL ophthalmic solution ferrous sulfate 325 Take 1 tablet by mouth 0 10/15 mg (65 mg iron) daily. tablet fexofenadine-pseudoep Take 1 tablet by mouth 2 0 hedrine (MING-D) (two) times a day. 60-120 mg per 12 hr tablet fluticasone Administer 2 sprays into 16 g 12 05/14/2019 propionate (FLONASE) each nostril daily as 50 mcg/actuation needed for rhinitis or nasal spray allergies. losartan (COZAAR) 25 0 10/17/2021 mg tablet meclizine (ANTIVERT) Take 25 mg by mouth as 0 25 mg tablet needed. MULTIVITAMIN ORAL Take 1 tablet by mouth 0 2010 daily. omeprazole (PriLOSEC) Take 1 capsule by mouth 0 0 05/20/[address] capsule daily. alendronate (FOSAMAX) TAKE 1 TABLET EVERY 7 12 tablet 3 04/202103/05/2022 70 mg tablet DAYS (WEEKLY) ON AN EMPTY STOMACH, REMAIN UPRIGHT FOR AT LEAST 30 MINUTES EPINEPHrine (EPIPEN Inject 0.3 mg 0 04/10/2017 2-KRISTIN) 0.3 mg/0.3 mL intramuscularly as injection syringe needed for anaphylaxis. documented as of this encounter Plan of Treatment Not on filedocumented as of this encounter Procedures Procedure Name Priority Date/Time Associated Comments Diagnosis DX HIP AND PELVIS RAD - Routine 03/04/2022 8:54 Pain Hip Left Resul ts for this LEFT 2-3 VIEWS (most inpatients AM CDT procedure are in and all the results outpatients) section. documented in this encounter Results DX Hip And Pelvis Left 2-3 Views (03/04/2022 8:54 AM CDT) Anatomical Region Laterality Modality Lower Extremity, Pelvis, Hip, Musculoskeletal RST LOS, Left Digital Radiography Musculoskeletal ARZ LOS, Muskuloskeletal FLA LOS Specimen (Source) Anatomical Collection Method Collection Time Re ceived Time Location / / Volume Laterality 03/04/2022 11:11 AM CDT Impressions 03/04/2022 11:12 AM CDT Degenerative arthritis, left hip. Chondrocalcinosis is present. Labral calcification. Degenerative changes SI joints, lower vicente mbar spine, and right hip. Narrative 03/04/2022 11:12 AM CDT EXAM: ??DX HIP AND PELVIS LEFT 2-3 VIEWS Procedure Note Gregorio Sheridan M.D. - 03/04/2022Forma tting of this note might be different from the original. EXAM: DX HIP AND PELVIS LEFT 2-3 VIEWS IMPRESSION: Degenerative arthritis, left hip. Chondr ocalcinosis is present. Labral calcification. Degenerative changes SI joints, lower vicente mbar spine, and right hip. Mary Cortez APRN, C.N.P., D.N.P. IMG DIAGNOSTIC IMAG ING PROCEDURES documented in this encounter Visit Diagnoses Diagnosis Pain Hip Left documented in this encounter Care Teams Synthetic Department Supervisor Relationship Specialty Start Date End Date Elsewhere, Pcp PCP - General Family Medicine 01/31/21 documented as of this encounter
--- OUTSIDE RECORDS SUMMARY | 2022-05-06 13:08 | XMS_ITS | Encounter Summary ---
:1935 Author Organization [facility] Address [address] [place] [address] Care Team Providers Name Role Phone Elsewhere, Pcp Primary Care Provider Unavailable Encounter Details Date Type Department Care Team Description 02/07/2021 Diagnostic Department of Cathie Crystal Au.D. L oss Hearing Sensorineural Bilateral (Primary Dx); Otorhinolaryngology in Kenneth Delmy Alek [address] [place] [address] Vertigo [place], [place] [address] [place] [address] Social History Tobacco Use Types Packs/Day Years Used Date Smoking Tobacco: Never Smokeless Tobacco: Never Alcohol Use Standard Drinks/Week Comments Not Currently 0 (1 standard drink = 0.6 oz pure alcoho l) Sex Assigned at Date Recorded Not on file documented as of this encounter Procedure Notes Cathie Crystal Au.D. - 02/07/2021 1:59 PM CDT SUBJECTIVE CHIEF COMPLAINT / REASON FOR VISIT ?? Hearing evaluation prior to vestibular evaluation HISTORY OF PRESENT COMPLAINT Mrs. Kathryn Leon is a 85 year old seen for a hearing evaluation. She has episodic vertigo and her most recent attack landed her in the Emergency Room on 01/30/2021. 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 She had a positive head shake test with neurology in the hospital suggesting peripheral lesion. She does not notice any tinnitus when she is having an attack. Her symptoms canbe mitigated by remaining very still. She reports that her right ear hearing has felt muffled for the last 2-3 months with aural fullness. She does say that some of her soft spoken friends are difficult to understand. She denied a significant history of noise exposure. No pain reported today. OBJECTIVE See Audiological Evaluation Form ASSESSMENT/PLAN ?? 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 ?? Right ear: Mild sensorineural hearing loss 0.25- 1.5 kHz, mild at 2 kHz and moderately severe 3-8kHz. ?? Word recognition ability was good for each ear. ?? Tympanometry revealed normal ear canal volume, pressure and admittance, bilaterally. A hermetic seal could not be maintained for measurement of acoustic reflexes. CARE PLAN ?? Mrs. Leon is scheduled for an evaluation with the vestibular lab next week. ?? Recheck hearing in 2-3 years, sooner if changes in hearing or balance arise. ?? We discussed that she is a hearing aid candidate. She will pursue a trial if interested. documented in this encounter Plan of Treatment Not on filedocumented as of this encounter Procedures Procedure Name Priority Date/Time Associated Diagnosis Comme nts AUDIOLOGY EVALUATION Routine 02/07/2021 12:00 AM CDT Vertigo documented in this encounter Results Audiology evaluation (02/07/2021 12:00 AM CDT) Specimen (Source) Anatomical Location Collection Method / Collectio n Time Received Time / Laterality Volume 02/07/2021 Narrative This result has an attachment that is no t available. Jessica Salas M.D. AUDIOLOGY SERVICES ORDERABLE S Performing Organization Address City/State/ZIP Code Phon e Number [facility] documented in this encounter Visit Diagnoses Diagnosis Loss Hearing Sensorineural Bilateral - P rimary Vertigo documented in this encounter Care Teams Sourcing Specialist Relationship Specialty Start Date End Date Elsewhere, Pcp PCP - General Family Medicine 01/31/21 documented as of this encounter
--- OUTSIDE RECORDS SUMMARY | 2022-05-06 13:08 | XMS_ITS | Encounter Summary ---
:1935 Author Organization [facility] Address [address] [place] [address] Care Team Providers Name Role Phone Elsewhere, Pcp Primary Care Provider Unavailable Reason for Referral MRI/CAT/PET Scan (Routine) - Closed Specialty Diagnoses / Procedures Referred By Contact Refer red To Contact Radiology Diagnoses Lesion Brain Candido Deutsch [place] Procedures MR Brain without and with IV Contrast [facility]age [address] [place] [phone] Referral ID Status Reason Start Date Expiration Date Visits Requ ested Visits Authorized [id number] Closed 02/04/2021 02/04/2022 1 1 Reason for Visit MRI/CAT/PET Scan (Routine) - Closed Specialty Diagnoses / Procedures Referred By Contact Refer red To Contact Radiology Diagnoses Lesion Brain Candido Deutsch [place] [facility] Procedures MR Brain without and with IV Contrast [facility]on Sage [address] [place] [phone] Referral ID Status Reason Start Date Expiration Date Visits Requ ested Visits Authorized [id number] Closed 02/04/2021 02/04/2022 1 1 Encounter Details Date Type Department Care Team Description 03/21/2021 Hospital Encounter Department of Radiology Nara gonzalez, Lesion Brain [place] [address] [place] [phone] [phone] Social History Tobacco Use Types Packs/Day Years [...] tablet (vertigo). documented as of this encounter Plan of Treatment Not on filedocumented as of this encounter Procedures Procedure Name Priority Date/Time Associated Comments Diagnosis MR BRAIN WITHOUT RAD - Routine 03/21/2021 11:11 Lesion Brain Result s for this AND WITH IV (most inpatients AM CDT procedure a re in CONTRAST and all the results outpatients) section. documented in this encounter Results MR Brain without and with IV Contrast (03/21/2021 11:11 AM CDT) Anatomical Region Laterality Modality Head, Brain, Neuroradiology RST LOS, Neuroradiology ARZ N/A Magnetic Resonance LOS, Neuroradiology FLA LOS [...] documented in this encounter Visit Diagnoses Diagnosis Lesion Brain documented in this encounter Administered Medications Inactive Administered Medications - up to 3 most recent administrations Medication Order MAR Action Action Date Dose Rate Site gadobutrol injection 7 mL Given 03/21/2021 11:12 AM CDT 7 mL (GADAVIST) 7 mL, intravenous, Once in imaging, contrast, Starting on Tania 03/21/21 at 1014, For 1 dose documented in this encounter Care Teams Purchasing Analyst Relationship Specialty Start Date End Date Elsewhere, Pcp PCP - General Family Medicine 01/31/21 documented as of this encounter
--- OUTSIDE RECORDS SUMMARY | 2022-05-06 13:08 | XMS_ITS | Encounter Summary ---
:1935 Author Organization [facility] Address [address] [place] [address] Care Team Providers Name Role Phone Elsewhere, Pcp Primary Care Provider Unavailable Reason for Visit Reason Comments Med Refill Encounter Details Date Type Department Care Team Description 02/18/2021 Refill Division of Endocrinology in Arin Sandoval M.D., Med Refill [place], [place] Ph.D. [address] [place] [address] [place] [phone] [place] [address] [phone] (Wo rk) Social History Tobacco Use Types Packs/Day Years Used Date Smoking Tobacco: Never Smokeless Tobacco: Never Alcohol Use Standard Drinks/Week Comments Not Currently 0 (1 standard drink = 0.6 oz pure alcoho l) Sex Assigned at Date Recorded Not on file documented as of this encounter Miscellaneous Notes Telephone Encounter - Amos Nevarez RChelsey - 02/19/2021 11:15 AM CDT Prescription renewal request did not meet nurse protocol because: patient has not been seen within the past 12 months Protocol utilized: Prescription Renewal Request for Medications: Division of Endocrinology, Diabetes, Metabolism and Nutrition. documented in this encounter Plan of Treatment Not on filedocumented as of this encounter Visit Diagnoses Not on filedocumented in this encounter Care Teams Communication Equipment Repairer Relationship Specialty Start Date End Date Elsewhere, Pcp PCP - General Family Medicine 01/31/21 documented as of this encounter
--- OUTSIDE RECORDS SUMMARY | 2022-05-06 13:08 | XMS_ITS | Encounter Summary ---
:1935 Author Organization [facility] Address [address] [place] [address] Care Team Providers Name Role Phone Elsewhere, Pcp Primary Care Provider Unavailable Reason for Visit Appointment Request (Routine) - Closed Specialty Diagnoses / Procedures Referred By Contact Refer red To Contact Family Medicine Referral ID Status Reason Start Date Expiration Date Visits Requ ested Visits Authorized [id number] Closed 02/06/2022 02/06/2023 1 1 Encounter Details Date Type Department Care Team Description 02/12/2022 Immunization Department of [facility] Matty Wilkinson Medicine, [facility], in [address] [address] [place], [place] [address] [phone] Social History Tobacco Use Types Packs/Day Years [...] on filedocumented in this encounter Care Teams Gold Prospector Relationship Specialty Start Date End Date Elsewhere, Pcp PCP - General Family Medicine 01/31/21 documented as of this encounter
--- OUTSIDE RECORDS SUMMARY | 2022-05-06 13:08 | XMS_ITS | Encounter Summary ---
:1935 Author Organization [facility] Address [address] [place] [address] Care Team Providers Name Role Phone Elsewhere, Pcp Primary Care Provider Unavailable Reason for Visit Reason Comments Follow-up Baby aspirin Encounter Details Date Type Department Care Team Description 02/14/2021 Clinical Communication Department of Seda How-caroline (Baby Neurology in [place], R.N. aspirin) [address] [place] [address] [place], [place] [phone] (Work) [phone] Social History Tobacco Use Types Packs/Day Years Used Date Smoking Tobacco: Never Smokeless Tobacco: Never Alcohol Use Standard Drinks/Week Comments Not Currently 0 (1 standard drink = 0.6 oz pure alcoho l) Sex Assigned at Date Recorded Not on file documented as of this encounter Miscellaneous Notes Telephone Encounter - Seda Ho R.N. - 02/14/2021 5:03 PM CDT Sent patient portal message: If she is not already taking aspirin or another blood thinner, she should start 81 mg daily now (in an abundance of caution given the possibility that the MRI finding represents a small, asymptomatic stroke). I ----- Message from Candido Deutsch M.D. sent at 02/04/2021 3:21 PM CDT ----- Please share with patient, highlighting the part about starting aspirin, which I did not think of until she had left the office. documented in this encounter Plan of Treatment Not on filedocumented as of this encounter Visit Diagnoses Not on filedocumented in this encounter Care Teams Research Electrician Relationship Specialty Start Date End Date Elsewhere, Pcp PCP - General Family Medicine 01/31/21 documented as of this encounter
--- OUTSIDE RECORDS SUMMARY | 2022-05-06 13:08 | XMS_ITS | Encounter Summary ---
:1935 Author Organization [facility] Address [address] [place] [address] Care Team Providers Name Role Phone Elsewhere, Pcp Primary Care Provider Unavailable Reason for Referral Outpatient (Routine) - Closed Specialty Diagnoses / Procedures Referred By Contact Refer red To Contact Orthopedic Surgery Mary Cortez APRN, [facility] C.N.P., D.N.P. [address] [place] [address] Referral ID Status Reason Start Date Expiration Date Visits Requ ested Visits Authorized [id number] Closed 03/04/2022 03/04/2023 1 1 utpatient (Routine) - Authorized Specialty Diagnoses / Procedures Referred By Contact Refer red To Contact Diagnoses Pain Hip Left Mary Cortez APRN, [facility] Procedures xtn-swsw-jcctvlxf-elbow arthrocentesis: L greater troch bursa C.N.P., D.N.P. [address] [place] [address] Referral ID Status Reason Start Date Expiration Date Visits V isits Requested Authorized [id number] Authorized 03/04/2022 03/04/2023 1 1 utpatient (Routine) - Closed Specialty Diagnoses / Procedures Referred By Contact Refer red To Contact Diagnoses Pain Hip Left Mary Cortez, CYRIL, [facility] Procedures DX Hip And Pelvis Left 2-3 Views C.N.P., D.N.P. [address] [place] [phone] Referral ID Status Reason Start Date Expiration Date Visits Requ ested Visits Authorized [id number] Closed 03/04/2022 03/04/2023 1 1 Reason for Visit Appointment Request (Routine) - Closed Specialty Diagnoses / Procedures Referred By Contact Refer red To Contact Orthopedic Surgery Referral ID Status Reason Start Date Expiration Date Visits Requ ested Visits Authorized [id number] Closed 02/06/2022 02/06/2023 1 1 Encounter Details Date Type Department Care Team Description 03/04/2022 Comprehensive Visit Department of Mary Cortez Pain Hip Left Orthopedic Surgery CYRIL, [facility].P[facility] [address] [place], [place] [phone] (Work) [phone] Social History Tobacco Use Types Packs/Day Years Used Date Smoking Tobacco: Never Smokeless Tobacco: Never Alcohol Use Standard Drinks/Week Comments Not Currently 0 (1 standard drink = 0.6 oz pure alcoho l) Sex Assigned at Date Recorded Not on file documented as of this encounter Progress Notes Mary Cortez, CYRIL, C.N.P., D.N.P. - 03/04/2022 9:00 AM CDT Kathryn is an extremely pleasant 87-year-old who comes in today for evaluation of her left hip. She states she had an injury and fell approximately 2 months ago but actually had this hip pain starting about 6 weeks ago. She describes the pain to be in the buttock but also in the lateral side of her hip denies pain going into her groin. She does have known osteoarthritis of her hip. But also has known history of issues with her back. Physical exam-left hip with minimal pain with flexion as well as abduction and adduction. She has quite good range of motion. A little more discomfort with abduction. Negative straight leg raise. She has significant pain over the left trochanteric bursa area that is quite tender with palpation. Diagnostic studies x-ray of her left hip shows Degenerative arthritis, left hip. Chondrocalcinosis is present. Labral calcification. Degenerative changes SI joints, lower lumbar spine, and right hip. Impression and plan- Kathryn is a very pleasant 87-year-old who is having left hip pain who has significant arthritis within that hip however she clinically has such excellent range of motion without any pain I do believe this may be somewhat related to her back. We did discuss doing a diagnostic injection of her hip as I would not feel she would be a good candidate for corticosteroid injection as her risk of collapsing is elevated but also patient declines wanting to consider surgical intervention at all. We did discuss a corticosteroid injection in the trochanteric area as she is quite tender there t o see if she does get some relief. She agrees with this plan. After brief discussion, consent form was obtained, per sterile technique using 4 cc of 1% lidocaine and 80 mg of methylprednisone was injected into her left hip trochanteric bursa without difficulty and patient tolerated the procedure well.I will plan to see her back in 6 weeks if she continues to be symptomatic. Sooner if her symptoms are worse. Because we think this may also have a factor of her back we would want to reassess her at that return visit. She agrees with this plan and her questions were answered documented in this encounter Procedure Notes Dara Grace, R.N. - 03/04/2022 9:00 AM CDTAssociated Order(s): wuy-rmfq-glondgyt-elbow arthrocentesis: L greater troch bursa Post-Procedure Diagnose(s): Pain Hip Left Hip site - L greater troch bursa : injection only Date/Time: 03/04/2022 9:35 AM Performed by: Mary Cortez APRN, C.N.P., D.N.P. Authorized by: Mary Cortez APRN C.N.P., D.N.P. PROCEDURE DETAILS Procedure Location hip Hip site: L greater troch bursa Site prep: patient was prepped and draped in usual sterile fashion Patient position: side-lying Procedural approach: anterolateral Procedure performed: injection only Needle gauge: 22 G, length: 2 in Procedural Medication The following medications were administered at the target site(s) Local anesthetic: 5 mL lidocaine 10 mg/mL (1 %); 3 mL lidocaine 10 mg/mL (1 %) Corticosteroid: 80 mg methylPREDNISolone acetate 80 mg/mL CONSENT Consent obtained: written PRE-PROCEDURE DETAILS Procedure purpose: therapeutic Site preparation: povidone-iodine SEDATION / ANESTHESIA Anesthesia method: none POST-PROCEDURE DETAILS Procedure completed successfully: yes Complications: no apparent complications Discharge instructions: ice area as needed for comfort and pain management instructions documented in this encounter Plan of Treatment Scheduled Referrals Name Type Priority Associated Order Schedule Diagnoses Orthopedic Surgery Outpatient Referral Routine Ex pected: office visit 04/18/2022, (clinic) Expires: 06/04/2023 documented as of this encounter Procedures Procedure Name Priority Date/Time Associated Diagnosis Comme nts MA ARTHCS ASP/INJ Routine 03/04/2022 9:35 AM Pain Hip Left Res ults for this MJR JT WO US CDT procedure are i n the results section. documented in this encounter Results MA ARTHCS ASP/INJ MJR JT WO US (03/04/2022 9:35 AM CDT) Narrative MMODAL - 03/04/2022 9:35 AM CDT Dara Grace R.N. ? 03/06/2022 11:02 AM Hip site - L greater troch bursa : injec tion only Date/Time: 03/04/2022 9:35 AM Performed by: Mary Cortez APRN, C.N. Igor, D.N.P. Authorized by: Mary Cortez APRN C.N .P., D.N.P. PROCEDURE DETAILS Procedure Location hip Hip site: L greater troch bursa Site prep: patient was prepped and drape d in usual sterile fashion ?? Patient position: side-lying Procedural approach: anterolateral Procedure performed: injection only Needle gauge: 22 G, length: 2 in Procedural Medication The following medications were administe red at the target site(s) Local anesthetic: 5 mL lidocaine 10 mg/m L (1 %); 3 mL lidocaine 10 mg/mL (1 %) Corticosteroid: 80 mg methylPREDNISolone acetate 80 mg/mL CONSENT Consent obtained: written PRE-PROCEDURE DETAILS Procedure purpose: therapeutic Site preparation: povidone-iodine SEDATION / ANESTHESIA Anesthesia method: none POST-PROCEDURE DETAILS Procedure completed successfully: yes Complications: no apparent complications ?? Discharge instructions: ice area as need ed for comfort and pain management instructions Angy Schmidt APRN.N.Igor, D.N.P. PROCEDURE/MINOR MÓNICA GICAL ORDERABLES Performing Organization Address City/State/ZIP Code Phon e Number MMODAL MMODAL NA DX Hip And Pelvis Left 2-3 Views [...] lower vicente mbar spine, and right hip. Esperanza Schmidt APRNNTerri., D.N.P. IMG DIAGNOSTIC IMAG ING PROCEDURES documented in this encounter Visit Diagnoses Diagnosis Pain Hip Left - Primary Pain Hip Left documented in this encounter Administered Medications Inactive Administered Medications - up to 3 most recent administrations Medication Order MAR Action Action Date Dose Rate Site lidocaine 10 mg/mL (1 %) injection 3 Given 03/04/2022 9:35 AM CD T 3 mL mL (XYLOCAINE) 3 mL, infiltration, One-Time Injection, Starting on Thu03/04/22 at 0935, For 1 dose lidocaine 10 mg/mL (1 %) injection 5 mL Given 03/04/2022 9:35 AM CDT 5 mL (XYLOCAINE) 5 mL, infiltration, One-Time Injection, Starting on Thu03/04/22 at 0935, For 1 dose methylPREDNISolone acetate injection 80 mg Given 03/04/2022 9:35 AM CDT 80 mg (DEPO-Medrol) 80 mg, intra-articular, One-Time Injection, Starting on Thu03/04/22 at 0935, For 1 dose documented in this encounter Care Teams Geography Instructor Relationship Specialty Start Date End Date Elsewhere, Pcp PCP - General Family Medicine 01/31/21 documented as of this encounter
--- OUTSIDE RECORDS SUMMARY | 2022-05-06 13:08 | XMS_ITS | Encounter Summary ---
:1935 Author Organization [facility] Address [address] [place] [address] Care Team Providers Name Role Phone Elsewhere, Pcp Primary Care Provider Unavailable Reason for Referral Outpatient (Routine) - Closed Specialty Diagnoses / Procedures Referred By Contact Refer red To Contact Diagnoses Screening Mammogram Breast Cancer Antonia Aldrich [facility] [place] [facility] Procedures BI Breast Screening Bilateral with Tomosynthesis C.N.P. [address] [place], [place] [address] Referral ID Status Reason Start Date Expiration Date Visits Requ ested Visits Authorized [id number] Closed 02/06/2022 02/06/2023 1 1 Reason for Visit Outpatient (Routine) - Closed Specialty Diagnoses / Procedures Referred By Contact Refer red To Contact Diagnoses Screening Mammogram Breast Cancer Antonia Aldrich [facility] [place] [facility] Procedures BI Breast Screening Bilateral with Tomosynthesis C.N.P. [address] [place], [place] [address] Referral ID Status Reason Start Date Expiration Date Visits Requ ested Visits Authorized [id number] Closed 02/06/2022 02/06/2023 1 1 Encounter Details Date Type Department Care Team Description 02/11/2022 Hospital Encounter Department of Antonia Aldrich Mammogram Radiology in [facility] [place], [place] [address] [place] [address] [place] [phone] (Work) [phone] Social History Tobacco Use Types Packs/Day Years [...] Procedure Name Priority Date/Time Associated Comments Diagnosis BI BREAST SCREENING RAD - Routine 02/11/2022 10:23 Screening Res ults for BILATERAL WITH (most inpatients AM CDT Mammogram Breast this procedure TOMOSYNTHESIS and all Cancer are in the outpatients) results section. documented in this encounter Results BI Breast Screening Bilateral with Tomosynthesis (02/11/2022 10:23 AM CDT) Anatomical Region Laterality Modality Breast, Breast Imaging RST LOS, Breast Imaging ARZ LOS, [place] [address] Bilateral Mammography Imaging FLA LOS Specimen (Source) Anatomical Collection Method Collection Time Re ceived Time Location / / Volume Laterality 02/11/2022 12:33 PM CDT Impressions 02/11/2022 12:36 PM CDT Negative. RECOMMENDATION: ??Annual Screening Mammo gram ASSESSMENT: ??BI-RADS: 1: Negative. Narrative 02/11/2022 12:36 PM CDT EXAM: ??BI BREAST SCREENING BILATERAL WITH TOMOSYNTHESIS Current study was evaluated with a Compu ter Aided Detection (CAD) system. INDICATION: ??Screening mammogram. COMPARISON: ??Prior exam(s) were availab le and reviewed for comparison. DENSITY: ??c. The breast(s) are heteroge neously dense, which may obscure small masses. FINDINGS: ??No mammographic findings of malignancy. Reduction mammoplasties. Procedure Note Jd Forbes M.D. - 02/11/2022Formatt ing of this note might be different from the original. EXAM: BI BREAST SCREENING BILATERAL WITH TOMOSYNTHESIS Current study was evaluated with a Location Labsu ter Aided Detection (CAD) system. INDICATION: Screening mammogram. COMPARISON: Prior exam(s) were available and reviewed for comparison. DENSITY: c. The breast(s) are heterogene ously dense, which may obscure small masses. FINDINGS: No mammographic findings of ma lignancy. Reduction mammoplasties. IMPRESSION: Negative. RECOMMENDATION: Annual Screening Mammogr am ASSESSMENT: BI-RADS: 1: Negative. Antonia LLANES BI PROCEDURES documented in this encounter Visit Diagnoses Diagnosis Screening Mammogram Breast Cancer documented in this encounter Care Teams Pest Control Service Representative Relationship Specialty Start Date End Date Elsewhere, Pcp PCP - General Family Medicine 01/31/21 documented as of this encounter
--- OUTSIDE RECORDS SUMMARY | 2022-05-06 13:08 | XMS_ITS | Encounter Summary ---
:1935 Author Organization [facility] Address [address] [place] [address] Care Team Providers Name Role Phone Elsewhere, Pcp Primary Care Provider Unavailable Encounter Details Date Type Department Care Team Description 02/03/2022 [facility] Antonia Aldrich Pain Hip Left AND CLINICS M, C.N.P. (Primary Dx) [address] [facility] [address] [place] [address] [phone] Social History Tobacco Use Types Packs/Day Years Used Date Smoking Tobacco: Never Smokeless Tobacco: Never Alcohol Use Standard Drinks/Week Comments Not Currently 0 (1 standard drink = 0.6 oz pure alcoho l) Sex Assigned at Date Recorded Not on file documented as of this encounter Plan of Treatment Not on filedocumented as of this encounter Visit Diagnoses Diagnosis Pain Hip Left - Primary documented in this encounter Care Teams Professor Of Geography Relationship Specialty Start Date End Date Elsewhere, Pcp PCP - General Family Medicine 01/31/21 documented as of this encounter
--- OUTSIDE RECORDS SUMMARY | 2022-05-06 13:08 | XMS_ITS | Encounter Summary ---
:1935 Author Organization [facility] Address [address] [place] [address] Care Team Providers Name Role Phone Elsewhere, Pcp Primary Care Provider Unavailable Reason for Visit Outpatient (Routine) - Closed Specialty Diagnoses / Procedures Referred By Contact Refer red To Contact Diagnoses Vertigo Rio Shah M.D. [facility] Procedures Vestibular balance evaluation [address] [place] [address] Referral ID Status Reason Start Date Expiration Date Visits Requ ested Visits Authorized [id number] Closed 01/30/2021 01/30/2022 1 1 Encounter Details Date Type Department Care Team Description 02/12/2021 Diagnostic Department of Otorhinolaryngology Alfonso Hernandez in [facility] Gabe Welch, M.S. [address] [place] [address] [place] [phone] [place], [place] [phone] Social History Tobacco Use Types Packs/Day Years Used Date Smoking Tobacco: Never Smokeless Tobacco: Never Alcohol Use Standard Drinks/Week Comments Not Currently 0 (1 standard drink = 0.6 oz pure alcoho l) Sex Assigned at Date Recorded Not on file documented as of this encounter Consult Notes Alfonso Eisenberg M.S. - 02/12/2021 10:00 AM CDT DEMOGRAPHIC INFORMATION [facility] Number: [id number] Patient Name: Ms. Kathryn Leon Age: 85 y.o. Birthdate: 1935 Sex: female Address: [address] [place] [id number] Provider: Alfonso Eisenberg M.S. Service: ENT/ Vestibular and Balance Clinic SUBJECTIVE CHIEF COMPLAINT/PURPOSE FOR VISIT Spontaneous episodes of vertigo HISTORY OF PRESENT COMPLAINT Ms. Leon is an enjoyable 85 y.o. woman who is seen today at the request of Dr. Shah for vestibular and balance evaluation. She relates a five to six year history of spontaneous episodes of external vertigo, nausea and unsteadiness that typically last on a constant basis for two to three days bef ore slowly resolving. During these spontaneous attacks any head movement will cause the vertigo and nausea to worsen. There is neither fluctuating hearing nor tinnitus with these episodes. Her most recent vertigo event occurred two weeks ago and caused her to be hospitalized here at [facility]. She hasbeen elsewhere given a diagnosis of benign positional vertigo (BPPV) but there are neither signs norsymptoms compatible with that disorder Between spells she feels well and perceives her balance to begood. She does have a remote history of migraine headaches and infrequent ocular migraine but these seem to be temporally unrelated to the episodes of vertigo. She denies having developed the visual sensitivities common to persistent postural-perceptual dizziness. The audiometric evaluation accomplished on February 07 of this year demonstrates bilateral, symmetrical, high frequency sensorineural hearing loss with normal word recognition scores and tympanometry. Observation of her walking this morning revealed a stable gait with normal stride length, arm swing and walking speed. At the time of this evaluation she reports that she is feeling well. Symptoms, when active, are described as moderately disabling, disrupting both work and social activities. Dizziness Handicap Inventory (DHI): 8 out of 100 PHQ-4 responses: 1. Feeling nervous, anxious or on edge: 0 2. Not being able to stop or control worrying 0 3. Feeling down, depressed, or hopeless 0 4. Little interest or pleasure in doing things 0 Anxiety score (#1+#2) = 0 (>2 suggests high likelihood of clinically significant anxiety symptoms) Depression score (#3+#4) = 0 (>2 suggests high likelihood of clinically significant depressive symptoms) OBJECTIVE VIDEONYSTAGMOGRAPHY Eye measurements:Infrared goggles, vertical and horizontal measurements obtained Direct Vestibular Office Examination Ocular range of motion: normal Ocular counter-rolling: normal Cover/cross-cover test: normal Head thrust testing: negative Vestibulo-Ocular Reflex Assessment vHIT - right horizontal canal: normal Gain: 0.81 vHIT - left horizontal canal: normal Gain: 0.7 Horizontal headshake test: negative Vertical headshake test: negative Right mastoid vibration test: negative Left mastoid vibration test: negative Gaze Testing (with visual fixation) Center gaze test: negative Right gaze test: negative Left gaze test: negative Up gaze test: negative Down gaze test: negative Gaze Testing (without visual fixation) Center gaze test: negative Right gaze test: negative Left gaze test: negative Up gaze test: negative Positional Testing (without visual fixation) Supine: negative Lateral-right: negative Lateral-left: negative 30 degrees supine: negative Positioning Testing Jimmy-Hallpike head hanging right: negative Barry-Hallpike head hanging left: negative Caloric Testing Caloric testing: Water for a duration of 30 seconds ( cool: 30C) Right cool: left beating (deg/sec): 18 Left cool: right beating (deg/sec): 19 Reduced vestibular response - weaker ear: Right ear Reduced vestibular response 3 % Fixation suppression: normal Percentage: 33 Overall caloric test: normal Ocular Motor Studies Ocular pursuit: normal Ocular saccades: normal Rotary Chair Spontaneous nystagmus: negative Sinusoidal harmonic acceleration range tested: 0.01 Hz, 0.08 Hz 0.01 Hz phase: 52.9 0.01 Hz gain: 31 0.01 Hz symmetry: -5.04 0.08 Hz phase: 7.01 0.08 Hz gain: 0.57 0.08 Hz symmetry: 7.72 Fixation suppression: normal 85 % gain reduction at 0.08 Hz Overall rotary chair test: normal phase, gain and symmetry of response Postural Control Testing Test(s) performed: Modified Clinical Test of Sensory Interaction in Balance (CTSIB-M) CTSIB-M result: Normal Safety Measures for Use of Rotary Chair Patient Check Sheet For all protocols the 5 point lap-belt torso harness needs to be in place. If for any reason the appropriate straps can not be placed the test is not to be performed. For all the protocols make sure that the chair is positioned so that the axis of rotation is throughthe center of the head (as viewed from the side of the patient - this should not have to be changed from patient to patient). Make sure the monitoring cameras are on and functioning and that these are viewed frequently during the testing. If these are not available or malfunction during the test the protocol is stopped or notstarted Make sure that the verbal communication system is functioning. If that was not available or was to malfunction during the testing the protocol is stopped or not started. No one over 350 lbs is to be tested in the chair system. Prior to all tests while chair is locked in place check to see if there is any movement of the chairsystem on its base. I hereby attest that the above safety measures were met: Alfonso Eisenberg M.S. ASSESSMENT / PLAN IMPRESSIONS 1. There were no objective indications of either peripheral or central vestibular system dysfunctionnoted today. The presentation of her symptoms does raise the question of an atypical presentation ofa hydropic disorder such as Meniere's syndrome. 2. There are no indications historically or by test findings of active benign paroxysmal positional vertigo (BPPV). 3. Ms. Leon' ability to maintain an upright stance under a variety of changing sensory input conditions was normal when evaluated using the modified Clinical Test of Sensory Integration on Balance (CTSIB). 4. Results from the PHQ-4 indicate low likelihood of clinically significant depressive or anxiety symptoms. #1 Benign recurrent vertigo RECOMMENDATIONS 1. Ms. Leon would not be an appropriate candidate for vestibular rehabilitation. 2. She may benefit from consultation with one of the ENT physicians for their thoughts and recommendations. documented in this encounter Plan of Treatment Not on filedocumented as of this encounter Visit Diagnoses Diagnosis Vertigo documented in this encounter Care Teams Production Line Assembler Relationship Specialty Start Date End Date Elsewhere, Pcp PCP - General Family Medicine 01/31/21 documented as of this encounter
--- OUTSIDE RECORDS SUMMARY | 2022-05-06 13:08 | XMS_ITS | Encounter Summary ---
:1935 Author Organization [facility] Address [address] [place] [id number] Care Team Providers Name Role Phone Elsewhere, Pcp Primary Care Provider Unavailable Reason for Visit Outpatient (Routine) - Closed Specialty Diagnoses / Procedures Referred By Contact Refer red To Contact Otorhinolaryngology Diagnoses Vertigo [facility]ly [facility] Candido Sage M.D. [address] [place] [phone] Referral ID Status Reason Start Date Expiration Date Visits V isits Requested Authorized [id number] Closed Specialty 03/19/2021 03/19/2022 1 1 Services Required Encounter Details Date Type Department Care Team Description 03/26/2021 Comprehensive Visit Department of Kush Sellers Otorhinolaryngology in [place], [place] M.S., M.P.H. [address] [place] [address] [place] [phone] [place], [place] [phone] Social History Tobacco Use Types Packs/Day Years Used Date Smoking Tobacco: Never Smokeless Tobacco: Never Alcohol Use Standard Drinks/Week Comments Not Currently 0 (1 standard drink = 0.6 oz pure alcoho l) Sex Assigned at Date Recorded Not on file documented as of this encounter Consult Notes Kush Sellers P.A.-C., M.S., M.P.H. - 03/26/2021 1:45 PM CDT CHIEF COMPLAINT/PURPOSE OF VISIT: Vertigo Referring Provider Candido Deutsch M.D. HISTORY OF PRESENT ILLNESS: Ms. Leon is a very pleasant 86 y.o. female who reports a five to six year history of spontaneous episodes of external vertigo, nausea, and unsteadiness that typically lasts on a constant basis for two to three days before slowly resolving. During these spontaneous attacks any head movement will cause the vertigo and nausea to worsen. She endorses associated photophobia and phonophobia with these attacks. She denies associated aural fullness, fluctuating hearing, or tinnitus with these episodes. Her most recent vertigo event occurred 5 weeks ago and caused her to be hospitalized here at [place]. She has been elsewhere given a diagnosis of benign positional vertigo (BPPV) but there are neither signs nor symptoms compatible with that disorder. Between spells she feels well and perceives her balance to be good. ?? She does have a remote history of migraine headaches and infrequent ocular migraine but these seem to be temporally unrelated to the episodes of vertigo. Although she does not have a headache associated with the dizziness she does endorse photophobia and phonophobia and reports that taking a nap will typically resolve these symptoms. She denies having developed the visual sensitivities common to persistent postural-perceptual dizziness. ?? The audiometric evaluation accomplished on February 07 of this year demonstrates bilateral, symmetrical, high frequency sensorineural hearing loss with normal word recognition scores and tympanometry. There were no objective indications of either peripheral or central vestibular system dysfunction onvestibular testing dated 02/12/2021. She was sent to ENT to discuss the possibility of an atypical presentation of a hydropic disorder such as Meniere's syndrome. ROS: Ten system review of systems performed and reviewed with patient. Pertinent ROS noted in HPI. The following portions of the patient's history were reviewed and updated as appropriate: allergies,current medications, family history, medical history, social history, surgical history and problem list. PHYSICAL EXAM: General: Alert, interactive 86 y.o. female, in no acute distress. Head: Normocephalic, atraumatic. Hair and scalp normal. Face: Symmetric. House-Brackmann I/ bilaterally. Sinuses non-tender to percussion. Eyes: Pupils equal, round, and reactive to light bilaterally. Extraocular movements intact. No nystagmus is appreciated. The sclera are without injection. Ears: Normal shaped pinna bilaterally. External auditory canals are clear. Tympanic membranes are intact and mobile with well-aerated middle ear spaces bilaterally. Mastoid area is non-tender, non-erythematous, and non-fluctuant bilaterally. Neck: Supple, normal range of motion. Trachea is midline. No palpable cervical lymphadenopathy or masses bilaterally. Bilateral parotid and submandibular glands are normal. Normal carotid pulses bilaterally. Thyroid is non-tender and without palpable nodules. Neurologic: Cranial Nerves II-XII are grossly intact and symmetric. Voice is strong and easily understandable without dysphonia or vocal tremor. Pulmonary: Patient has non-labored breathing. No audible stridor. Skin: Warm and dry. Psych: Appropriate mood and affect. ASSESSMENT/PLAN: #1 Vertigo It was a pleasure meeting Mrs. Leon today. We had a very detailed and thorough review of her workup including MRI of the brain, audiometry, and vestibular testing. 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 We discussed treatment of hydropic disorders including a low-sodium diet and medications such as Dyazide and betahistine. She will start with a low-sodium diet. We also discussed avoidance of known migraine triggers and I provided her with a detailed list and encouraged her to perform an elimination diet and keep a symptom journal. She expressed good understanding of this and was in agreement with this plan. ADMINISTRATIVE BILLING I personally spent a total of [60] minutes face to face with the patient and >50% in counseling and discussion and/or coordination of care as described above. documented in this encounter Plan of Treatment Not on filedocumented as of this encounter Visit Diagnoses Diagnosis Vertigo documented in this encounter Care Teams Hydrometallurgical Engineer Relationship Specialty Start Date End Date Elsewhere, Pcp PCP - General Family Medicine 01/31/21 documented as of this encounter
--- OUTSIDE RECORDS SUMMARY | 2022-05-06 13:08 | XMS_ITS | Encounter Summary ---
:1935 Author Organization [facility] Address [address] [place] [id number] Care Team Providers Name Role Phone Elsewhere, Pcp Primary Care Provider Unavailable Reason for Visit Appointment Request (Routine) - Closed Specialty Diagnoses / Procedures Referred By Contact Refer red To Contact Physical Therapy Diagnoses Vertigo Referral ID Status Reason Start Date Expiration Date Visits Requ ested Visits Authorized [id number] Closed 04/09/2021 04/09/2022 1 1 Encounter Details Date Type Department Care Team Description 04/09/2021 Comprehensive Visit Department of Tyler Hodges M.D. [address] [place] [phone] Rehabilitation Services Faviola Guerrero, P.T. [address] [place] [phone] [phone] Social History Tobacco Use Types Packs/Day Years Used Date Smoking Tobacco: Never Smokeless Tobacco: Never Alcohol Use Standard Drinks/Week Comments Not Currently 0 (1 standard drink = 0.6 oz pure alcoho l) Sex Assigned at Date Recorded Not on file documented as of this encounter Consult Notes Faviola Guerrero, P.T. - 04/09/2021 12:30 PM CDT Consults Physical Therapy Outpatient Evaluation/Treatment By co-signing this note, the provider certifies the therapy being provided to this patient is reasonable and necessary for the diagnosis or treatment of this patient. SUBJECTIVE Patient's Name: Kathryn Leon Referring Provider: No ref. provider found Visit Diagnosis: No diagnosis found. Reason for Referral: OT eval and treat: functional safety and independence following onselt of BPPV Onset Date: 01/29/21 Payor: MEDICARE / Plan: MEDICARE A AND B / Product Type: Medicare / Serious Energy Visit Count: 1 PERTINENT MEDICAL / SURGICAL HISTORY: Patient Active Problem List Diagnosis ??? Arthritis Rheumatoid (HCC) ??? Vertigo ??? Vertigo Benign Paroxysmal Positional Bilateral ??? Osteoporosis Past Surgical History: Procedure Laterality Date ??? BREAST BIOPSY Right ??? EXTRACAPSULAR CATARACT EXTRACTION AND INSERTION OF INTRAOCULAR LENS N/A 02/26/2007 Extracapsular cataract removal with insertion of intraocular lens prosthesis (1 stage procedure), manual or mechanical technique (eg, irrigation and aspiration or phacoemulsification).. ??? HYSTERECTOMY N/A 11/04/1966 Hysterectomy ??? HYSTERECTOMY 11/04/1966 ??? INTERNAL HEMORRHOIDECTOMY N/A 02/26/1959 Hemorrhoidectomy, internal and external, single column/group;.. ??? OTHER CONVERTED SHX (SEE COMMENT) N/A 02/02/2007 >Esophagogastroduodenoscopy with Biopsies ??? OTHER CONVERTED SHX (SEE COMMENT) N/A 02/15/2010 >1. Right L3 partial hemilaminectomy. 2. Complete L4 hemilaminectomy. ??? REDUCTION MAMMAPLASTY Bilateral 02/26/1982 ??? REDUCTION MAMMAPLASTY Bilateral unknown date ??? REDUCTION MAMMOPLASTY N/A 02/26/1982 Reduction mammaplasty.. ??? REPAIR OF CYSTOCELE N/A 1995 Repair of cystocele Kathryn Leon is a 86 y.o. female who presents to outpatient physical therapy for evaluation. Her symptoms consist of: 1. Dizziness Overall she reports her status remains the same. History of Present Illness: insidious onset of dizziness on Thursday night. Patient awoke with symptoms. Patient reports her symptoms are slightly better but still continue to be present. Aggravating Factors: Rolling over in bed Relieving Factors: Controlled head movements Previous Treatments: Patient has had successful treatment for BPPV with canalith repositioning the past. Prior Function: No prior limitation. Intermittent episodes of BPPV. Patient goals: resolve symptoms Contact monitoring: PPE used during therapy: Therapist was wearing the following PPE throughout entire session: surgicalmask Patient was wearing a mask during therapy session: yes Additional Staff Present During Session: no OBJECTIVE PHYSICAL EXAM Pain: No complaint of pain Ortho Exam Cervical range of motion is within normal limits. Hallpike Jimmy is positive for left posterior canal nystagmus and symptom reproduction. TREATMENT Treatment today consisted of: Canalith repositioning for the left posterior canal x2. Home Exercise Program/Education: No home exercises recommended at this time. Assessment Clinical Impression: Ms. Leon presents to physical therapy with signs and symptoms consistent with left posterior canal BPPV. Impairments: Dizziness and disequilibrium Functional deficits: Decreased positional and activity tolerance. Rehab Potential: Ms. Leon has good potential to achieve established physical therapy goals withinthe time frame outlined below, provided she actively participates in her physical therapy treatment plan and home program. Functional Goals and Timeframes: PT Outpatient Goals PT Goal #1: Patient will have symptom resolution in 1 week. PT Goal #1 Date: 04/12/21 PT Goal #2: Patient will transfer from supine to/from sit without symptom reproduction in 1 week. PT Goal #2 Date: 04/12/21 Plan Ms. Leon was educated regarding evaluative findings, diagnosis, prognosis, potential risks and benefits of rehabilitation interventions. A collaborative effort was used to establish goals and plan of care. She was informed of her right to make decisions regarding her care, including refusal of examination or treatment or selection of services from another provider if desired. The treatment plan may be progressed or modified based upon her response to treatment. Treatment Plan: Start of Plan of Care: 04/09/2021 Number of Visits: 1 visit PT Duration: 1 visit PT Frequency: 1 visit Treatment interventions may include: Patient education and canalith repositioning. Plan for next session: Patient will contact therapist if symptoms do not resolve in 1 treatment session. Time Spent with Patient PT Evaluation (min): 17 min Time Calculation Total Treatment Time (min): 17 min Faviola Guerrero P.T. Department of Rehabilitation Services in [address] [phone] Dept: [phone] documented in this encounter Plan of Treatment Not on filedocumented as of this encounter Visit Diagnoses Not on filedocumented in this encounter Care Teams Machine Operator Replanter Relationship Specialty Start Date End Date Elsewhere, Pcp PCP - General Family Medicine 01/31/21 documented as of this encounter
--- OUTSIDE RECORDS SUMMARY | 2022-05-06 13:08 | XMS_ITS | Clinical Summary ---
:1935 Author Organization [facility] Address [address] [place] [id number] Care Team Providers Name Role Phone Elsewhere, Pcp Primary Care Provider Unavailable Source Comments Patient records contain information from all sites at [facility]. For routine questions regarding patient records, call [phone] during business hours, M-F 8:00 AM - 5:00 PM Central Time. Record requests for emergency care only can be directed to [phone] at any time.[facility] Allergies Active Allergy Reactions Severity Noted Date Comments Gluten Other (see comments) 10/25/2010 cerner listed no reaction Influenza Virus Other (see comments) 10/20/2006 Vaccines Miconazole Other (see comments) 12/10/2013 MICONAZ OLE NITRATE Nut - Unspecified Other (see comments) 10/25/2010 ce rner listed no reaction Peanut Hives, Anaphylaxis 12/20/2011 Medications Medication Sig Dispensed Refills Start Date End Date Status CYANOCOBALAMIN, Take 1,000 mcg by 0 10/25/2010 Active VITAMIN B-12, ORAL mouth daily. ferrous sulfate 325 Take 1 tablet by 0 11/02/2013 Active mg (65 mg iron) mouth daily. tablet MULTIVITAMIN ORAL Take 1 tablet by 0 10/25/2010 Active mouth daily. fluticasone Administer 2 sprays 16 g 12 05/14/2019 Active propionate (FLONASE) into each nostril 50 mcg/actuation daily as needed for nasal spray rhinitis or allergies. Additional Information Patient taking differently: 2 spray each nostril Daily, (No PRN reasons reported), Other, Reported on 11/19/2021 omeprazole Take 1 capsule by 0 05/20/2019 Active (PriLOSEC) [address] capsule dorzolamide-timolo Administer 1 drop 0 Active L (COSOPT) into the right eye 22.3-6.8 mg/mL daily. ophthalmic solution cycloSPORINE Administer 1 drop 0 Active (RESTASIS) 0.05 % into both eyes 2 ophthalmic (two) times a day. emulsion fexofenadine-pseud Take 1 tablet by 0 Active oephedrine mouth 2 (two) times a (MING-D) 60-120 day. mg per 12 hr tablet calcium Take 1 tablet by 0 Act fito carbonate-vitamin mouth 2 (two) times a D3 1,500 mg (600 day with meals. mg calcium)-10 mcg (400 Unit) per tablet meclizine Take 25 mg by mouth 0 01/31/2021 Active (ANTIVERT) 25 mg as needed. tablet losartan (COZAAR) 0 10/17/2021 A ctive 25 mg tablet colchicine 0 10/21/2021 Active (COLCRYS) 0.6 mg tablet alendronate TAKE 1 TABLET EVERY 7 12 tablet 3 03/05/2022 Active (FOSAMAX) 70 mg DAYS (WEEKLY) ON AN tablet EMPTY STOMACH, REMAIN UPRIGHT FOR AT LEAST 30 MINUTES EPINEPHrine Inject 0.3 mg 0 04/10/2017 continued (EPIPEN 2-KRISTIN) 0.3 intramuscularly as 20 22 (Therapy mg/0.3 mL needed for completed ) injection syringe anaphylaxis. Active Problems Problem Noted Date Osteoporosis 07/14/2019 Vertigo Benign Paroxysmal Positional Bilateral 019 Vertigo 05/12/2019 Arthritis Rheumatoid 10/25/2010 Overview: Arthritis, rheumatoid* Encounters Date Type Specialty Care Team Description 04/18/2022 Hospital Encounter Radiology Mary Cortez Pain K nee Left CONTINUITY READER, C.N.P., D.N.P. 04/18/2022 Office Visit Orthopedic Surgery Mary Cortez Pain K nee Left CONTINUITY READER, C.N.P., (Primary Dx) D.N.P. 03/04/2022 Comprehensive Visit Orthopedic Surgery Mary Cortez Pain Hip Left CONTINUITY READER, C.N.P., (Primary Dx) D.N.P. 03/04/2022 Hospital Encounter Radiology Mary Cortez Pain H ip Left CYRIL, C.N.P., D.N.P. 02/12/2022 Immunization Family Medicine Matty Wilkinson M.D. 02/11/2022 Hospital Encounter Radiology Antonia Aldrich enwendi Mammogram M, C.N.P. Breast Cancer 02/03/2022 Community Orders Antonia Aldrich ip Left M, C.N.P. (Primary Dx) from Last 3 Months Immunizations Name Administration Dates Next Due HZV (ZOSTAVAX) 10/02/2010 HepA Adult 07/30/2006, 12/28/2001 HepB (discontinued) adolescent/high 06/29/2006, 01/31/2002, 12/28/2001 risk infant Hib (PRP-T) (ACTHIB, HIBERIX) 02/01/2007 Influenza (IM) Preservative Free 08/23/2009, 08/22/2009, 04/2009, 08/20/2009, 08/20/2009 Influenza, Unspecified 09/24/2016, 09/23/2016, 07/12/2015, 07/10/2015, 07/26/2014, 07/05/2013, 07/04/2013, 07/01/2013, 08/02/2012, 07/29/2012, 07/27/2012, 09/25/2011, 09/25/2011, 06/26/2010 MCV4 (Menactra) 02/01/2007 MPSV4 02/01/2007 PCV13 07/10/2015 PPSV23 02/01/2007, 02/01/2007 SARS-COV-2 (COVID-19) - MODERNA 02/12/2022, 07/09/2021 Td (Adult), adsorbed 05/29/2000 Tdap 02/16/2021, 06/17/2011, 11/04/2010 influenza high dose (65 years or 08/11/2018, 08/10/2018, , 08/27/2017 older) (PF) 08/26/2017 Family History Medical History Relation Name Comments Celiac disease Brother Down syndrome Brother Kidney disease Brother Glaucoma Father Breast cancer Mother's Sister 1 70's Breast cancer Mother's Sister 2 70's Breast cancer Mother's Sister 3 70's Relation Name Status Comments Brother Father Mother's Sister 1 Mother's Sister 2 Mother's Sister 3 Social History Tobacco Use Types Packs/Day Years [...] 1.1 oz) 02/16/2021 7:47 PM CDT Height 158 cm (5' 2.21) 02/04/2021 12:31 PM CDT Body Mass Index 28.72 02/04/2021 12:31 PM CDT Plan of Treatment Health Maintenance Due Date Last Done Comments Zoster Vaccines (2 of 3) 11/27/2010 10/02/2010 Depression Screening (Annual 09/14/2021 PHQ-2) Fall Risk Screen (Annual) 09/14/2021 Creatinine Level 01/29/2022 01/29/2021, 11/01/2020, 05/14/2019, Additional history exists Potassium Level 01/29/2022 01/29/2021, 11/01/2020, 05/14/2019, Additional history exists Sodium Level 01/29/2022 01/29/2021, 11/01/2020, 05/14/2019, Additional history exists Influenza Vaccine (#1) 2022 07/04/2021, 07/02/2021, 06/13/2020, Additional history exists DTaP,Tdap,and Td Vaccines (4 - Td 02/16/2031 02/16/2021, , or Tdap) 11/04/2010, Additional history exists Pneumococcal vaccine (65+ years) Completed 07/10/2015, , 02/01/2007 COVID-19 Vaccine Completed 02/12/2022, 07/09/2021, 11/15/2020, Additional history exists Medical Devices Implanted Type Area House Carpenter Helper Device Shelf Model / Identifier Expiration Serial / Date Lot Ocular Lens-02/26/2007 Ocular Left: Implanted: 02/26/2007 (Quantity not on file) Lens Eye Conversions - Default Historical Implant Device Ocular Implanted: 04/17/2015 (Quantity not on file) Lens Description: Device Status Text - OculrL ens. Procedures Procedure Name Priority Date/Time Associated Comments Diagnosis ND ARTHCS ASP/INJ Routine 04/18/2022 10:13 Pain Knee Left Resu lts for MJR JT WO US AM CDT this procedure are in the results section. DX KNEE LEFT 3 VIEWS RAD - Routine 04/18/2022 9:35 Pain Knee Left R esults for (most inpatients AM CDT this proced ure and all are in the outpatients) results section. ND ARTHCS ASP/INJ Routine 03/04/2022 9:35 Pain Hip Left Result s for MJR JT WO US AM CDT this procedure are in the results section. DX HIP AND PELVIS RAD - Routine 03/04/2022 8:54 Pain Hip Left Resul ts for LEFT 2-3 VIEWS (most inpatients AM CDT this proc edure and all are in the outpatients) results section. BI BREAST SCREENING RAD - Routine 02/11/2022 10:23 Screening Res ults for BILATERAL WITH (most inpatients AM CDT Mammogram Breast this procedure TOMOSYNTHESIS and all Cancer are in the outpatients) results section. from Last 3 Months Results ND ARTHCS ASP/INJ MJR JT WO US (04/18/2022 10:13 AM CDT) Narrative MMODAL - 04/18/2022 10:13 AM CDT Nelly Cast R.N. ? 04/18/2022 10:43 AM Knee site- L knee joint : injection only Date/Time: 04/18/2022 10:13 AM Performed by: Mary Cortez APRN, C.N. P., D.N.P. Authorized by: Mary Cortez APRN, C.N .P., D.N.P. PROCEDURE DETAILS Procedure Location knee Knee site: L knee joint Site prep: patient was prepped and drape d in usual sterile fashion ?? Procedural approach: anterolateral Procedure performed: injection only Needle gauge: 22 G Procedural Medication The following medications were administe red at the target site(s) Local anesthetic: 8 mL lidocaine 10 mg/m L (1 %) Corticosteroid: 40 mg triamcinolone acet onide 40 mg/mL CONSENT Consent obtained: written PRE-PROCEDURE DETAILS Procedure purpose: therapeutic and diagn ostic Indications: left knee pain Site preparation: povidone-iodine SEDATION / ANESTHESIA Anesthesia method: none POST-PROCEDURE DETAILS Procedure completed successfully: yes Complications: no apparent complications ?? Discharge instructions: dressing care an d follow-up with ordering provider Mary Cortez APRN, C.N.P., D.N.P. PROCEDURE/MINOR MÓNICA GICAL ORDERABLES Performing Organization Address City/State/ZIP Code Phon e Number MMODAL MMODAL NA DX Knee Left 3 Views (04/18/2022 9:35 AM CDT) Anatomical Region Laterality Modality Lower Extremity, Knee, Musculoskeletal RST LOS, Left Digital Radiography Musculoskeletal ARZ LOS, Muskuloskeletal FLA LOS Specimen (Source) Anatomical Collection Method Collection Time Re ceived Time Location / / Volume Laterality 04/18/2022 10:15 AM CDT Impressions 04/18/2022 10:20 AM CDT Osteoarthritis in the medial compartment of the left knee. Narrative 04/18/2022 10:20 AM CDT EXAM: DX KNEE LEFT 3 VIEWS COMPARISON: None. FINDINGS: There is osteoarthritis in the medial compartment of the left knee with mild joint space narrowing and subchondral sclerosis. No fractures are seen. Alignment is within normal limits. Subtle asymmetric irregularity of the po sterior cortex of the distal left femoral diaphysis on the lateral view is of doubtful clinical sig nificance. Procedure Note Car Roy M.D. - 04/18/2022Format ting of this note might be different from the original. EXAM: DX KNEE LEFT 3 VIEWS COMPARISON: None. FINDINGS: There is osteoarthritis in the medial compartment of the left knee with mild joint space narrowing and subchondral sclerosis. No fractures are seen. Alignment is within normal limits. Subtle asymmetric irregularity of the po sterior cortex of the distal left femoral diaphysis on the lateral view is of doubtful clinical sig nificance. IMPRESSION: Osteoarthritis in the medial compartment of the left knee. Mary Cortez APRN C.N.PDann, D.N.P. IMG DIAGNOSTIC IMAG ING PROCEDURES ND ARTHCS ASP/INJ MJR JT WO US (03/04/2022 9:35 AM CDT) Narrative MMODAL - 03/04/2022 9:35 AM CDT Dara Grace R.N. ? 03/06/2022 11:02 AM Hip site - L greater troch bursa : injec tion only Date/Time: 03/04/2022 9:35 AM Performed by: Mary Cortez APRN, C.N. P., D.N.P. Authorized by: Mary Cortez APRN, C.N .P., D.N.P. PROCEDURE DETAILS Procedure Location [...] ed for comfort and pain management instructions Mary Cortez APRN, C.N.P., D.N.P. PROCEDURE/MINOR MÓNICA GICAL ORDERABLES Performing Organization [...] C.N.P., D.N.P. IMG DIAGNOSTIC IMAG ING PROCEDURES BI Breast Screening Bilateral with Tomosynthesis (02/11/2022 10:23 AM CDT) Anatomical Region Laterality Modality Breast, Breast Imaging RST LOS, Breast Imaging ARZ LOS, [address] st Bilateral Mammography Imaging FLA [facility] Specimen (Source) Anatomical Collection Method Collection Time [...] Compu ter Aided Detection (CAD) system. INDICATION: Screening mammogram. COMPARISON: Prior exam(s) were available and reviewed for comparison. DENSITY: c. The breast(s) are heterogene ously dense, which may obscure small masses. FINDINGS: No mammographic findings of ma lignancy. Reduction mammoplasties. IMPRESSION: Negative. RECOMMENDATION: Annual Screening Mammogr am ASSESSMENT: BI-RADS: 1: Negative. Antonia Aldrich C.N.P. IMG BI PROCEDURES from Last 3 Months Insurance Payer Benefit Plan Subscriber ID Effective Phone Address Typ e / Group Dates MEDICARE MEDICARE A [id number] 2002-Prese [address] [place] [address] FOR FOR [id number] 2021-Prese [phone] [address] Indemnity LIFE LIFE nt [address] [place] [address] Advance Directives For more information, please contact: [phone] Latest Code Status on File Code Status Date Activated Date Inactivated Comments Full Code 01/30/2021 9:47 AM 01/31/2021 5:43 PM Full Code: Discussed Full Code 05/13/2019 9:21 PM 05/14/2019 5:58 PM Full Code: Discussed Full Code 05/12/2019 9:26 PM 05/13/2019 6:58 PM Full Code: Discussed Care Teams Supervisor Line Department Relationship Specialty Start Date End Date Elsewhere, Pcp PCP - General Family Medicine 01/31/21
--- OUTSIDE RECORDS SUMMARY | 2022-05-06 13:08 | XMS_ITS | Encounter Summary ---
:1935 Author Organization [facility] Address [address] [place] [address] Care Team Providers Name Role Phone Elsewhere, Pcp Primary Care Provider Unavailable Reason for Referral Outpatient (Routine) - Closed Specialty Diagnoses / Procedures Referred By Contact Refer red To Contact Diagnoses Pain Knee Left Mary Cortez APRN, [facility] [place] [facility] Procedures DX Knee Left 3 Views C.N.P., D.N.P. [address] [place] [phone] Referral ID Status Reason Start Date Expiration Date Visits Requ ested Visits Authorized [id number] Closed 04/18/2022 04/18/2023 1 1 Reason for Visit Outpatient (Routine) - Closed Specialty Diagnoses / Procedures Referred By Contact Refer red To Contact Diagnoses Pain Knee Left Mary Cortez APRN, [facility] [place] [facility] Procedures DX Knee Left 3 Views C.N.P., D.N.P. [address] [place] [phone] Referral ID Status Reason Start Date Expiration Date Visits Requ ested Visits Authorized [id number] Closed 04/18/2022 04/18/2023 1 1 Encounter Details Date Type Department Care Team Description 04/18/2022 Hospital Encounter Department of Mary Cortez, Pain Knee Left Radiology in [place] CYRIL C.N.P., [place], [place] D.N.P. [address] [phone] Social History Tobacco Use Types Packs/Day Years Used Date Smoking Tobacco: Never Smokeless Tobacco: Never Alcohol Use Standard Drinks/Week Comments Not Currently 0 (1 standard drink = 0.6 oz pure alcoho l) Sex Assigned at Date Recorded Not on file documented as of this encounter Medications at Time of Discharge Medication Sig Dispensed Refills Start Date End Date alendronate (FOSAMAX) 70 TAKE 1 TABLET EVERY 7 12 tablet 3 03/05/2022 mg tablet DAYS (WEEKLY) ON AN EMPTY STOMACH, REMAIN UPRIGHT FOR AT LEAST 30 MINUTES calcium carbonate-vitamin Take 1 tablet by mouth 0 D3 1,500 mg (600 mg 2 (two) times a day calcium)-10 mcg (400 with meals. Unit) per tablet colchicine (COLCRYS) 0.6 0 10/21/2021 mg tablet CYANOCOBALAMIN, VITAMIN Take 1,000 mcg by 0 10/25 B-12, ORAL mouth daily. cycloSPORINE (RESTASIS) Administer 1 drop into 0 0.05 % ophthalmic both eyes 2 (two) emulsion times a day. dorzolamide-timoloL Administer 1 drop into 0 (COSOPT) 22.3-6.8 mg/mL the right eye daily. ophthalmic solution ferrous sulfate 325 mg Take 1 tablet by mouth 0 0 11/02/2013 (65 mg iron) tablet daily. fexofenadine-pseudoephedr Take 1 tablet by mouth 0 ine (MING-D) 60-120 mg 2 (two) times a day. per 12 hr tablet fluticasone propionate Administer 2 sprays 16 g 12 04/16 (FLONASE) 50 into each nostril mcg/actuation nasal spray daily as needed for rhinitis or allergies. losartan (COZAAR) 25 mg 0 10/17/2021 tablet meclizine (ANTIVERT) 25 Take 25 mg by mouth as 0 01/31/2021 mg tablet needed. MULTIVITAMIN ORAL Take 1 tablet by mouth 0 2010 daily. omeprazole (PriLOSEC) 40 Take 1 capsule by 0 02/[address] capsule mouth daily. documented as of this encounter Plan of Treatment Not on filedocumented as of this encounter Procedures Procedure Name Priority Date/Time Associated Comments Diagnosis DX KNEE LEFT 3 RAD - Routine 04/18/2022 9:35 Pain Knee Left Results for this VIEWS (most inpatients AM CDT procedure a re in and all the results outpatients) section. documented in this encounter Results DX Knee Left 3 Views (04/18/2022 9:35 [...] of the left knee. Mary Cortez APRN C.N.P., D.N.P. IMG DIAGNOSTIC IMAG ING PROCEDURES documented in this encounter Visit Diagnoses Diagnosis Pain Knee Left documented in this encounter Care Teams Core Baker Relationship Specialty Start Date End Date Elsewhere, Pcp PCP - General Family Medicine 01/31/21 documented as of this encounter
--- OUTSIDE RECORDS SUMMARY | 2022-05-06 13:08 | XMS_ITS | Encounter Summary ---
:1935 Author Organization [facility] Address [address] [place] [address] Care Team Providers Name Role Phone Elsewhere, Pcp Primary Care Provider Unavailable Reason for Referral Outpatient (Routine) - Authorized Specialty Diagnoses / Procedures Referred By Contact Refer red To Contact Diagnoses Pain Knee Left Mary Cortez APRN, [facility] [place] [facility] Procedures gzz-okye-rkrdymuk-elbow arthrocentesis: L knee joint C.N.P., D.N.P. [address] [place] [phone] Referral ID Status Reason Start Date Expiration Date Visits V isits Requested Authorized [id number] Authorized 04/18/2022 04/18/2023 1 1 utpatient (Routine) - Closed Specialty Diagnoses / Procedures Referred By Contact Refer red To Contact Diagnoses Pain Knee Left Mary Cortez APRN, [facility] [place] [facility] Procedures DX Knee Left 3 Views C.N.P., D.N.P. [address] [place] [phone] Referral ID Status Reason Start Date Expiration Date Visits Requ ested Visits Authorized [id number] Closed 04/18/2022 04/18/2023 1 1 Reason for Visit Reason Comments Follow-up Trochanteric injection 03/04- would say pain is much better after injection, at night now gets pain from hip down thigh to left knee Pain Outpatient (Routine) - Closed Specialty Diagnoses / Procedures Referred By Contact Refer red To Contact Orthopedic Surgery Mary Cortez, C[place], [facility] C.N.P., D.N.P. [address] [place] [phone] Referral ID Status Reason Start Date Expiration Date Visits Requ ested Visits Authorized [id number] Closed 03/04/2022 03/04/2023 1 1 Encounter Details Date Type Department Care Team Description 04/18/2022 Office Visit Department of Mary Cortez Pain Knee L eft Orthopedic Surgery in [place], C.N.PDann, (Prim carlos Dx) Jelly MitchellNOlivia [address] [phone] Social History Tobacco Use Types Packs/Day Years Used Date Smoking Tobacco: Never Smokeless Tobacco: Never Alcohol Use Standard Drinks/Week Comments Not Currently 0 (1 standard drink = 0.6 oz pure alcoho l) Sex Assigned at Date Recorded Not on file documented as of this encounter Progress Notes Mary Cortez, CYRIL, C.N.P., D.N.P. - 04/18/2022 9:00 AM CDT Kathryn is an extremely pleasant 87-year-old comes in today for follow-up her left trochanteric bursa injection. She states she noted significant improvement however not complete resolution of her pain but now has noted the pain to be in her lateral knee on that left side. She is no new injury. Physical exam-left hip with continued mild tenderness over the trochanteric area. Left knee with no particular effusion noted but she does have some pain in the lateral joint line to palpation. She is full extension and flexes to 120??. Knee is stable to valgus and varus. 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 Impression and plan- Kathryn is a very pleasant 87-year-old who was having left hip pain that is improved but now having left knee pain. I suspect this is probably related to her back which we had discussed at her previous visit but she does have some arthritis in her left knee also but more noted in themedial aspect versus the lateral. After discussion on treatment options versus diagnostic injection of her knee we did decide to proceed with a corticosteroid injection of her left knee. After brief discussion, consent form was obtained, per sterile technique using a small amount of 1% lidocaine and 40 mg of Kenalog was injected into her left knee without difficulty and patient tolerated the procedure well. I discussed with patient that I do feel this might be related to her back but she did have a fair amount of improvement in her hip symptoms with the injection and wanted to try this 1st. If she finds no improvement in her knee we will further refer to her spine specialists for continued symptoms. She agrees with this plan. She will let us know the response of her injection in approximately 1-2weeks. And her questions were answered documented in this encounter Procedure Notes Nelly Cast R.N. - 04/18/2022 9:00 AM CDTAssociated Order(s): mus-sicy-gxglbzmy-elbow arthrocentesis: L knee joint Post-Procedure Diagnose(s): Pain Knee Left Knee site- L knee joint : injection only Date/Time: 04/18/2022 10:13 AM Performed by: Mary Cortez APRN, C.N.P., D.N.P. Authorized by: Mary Cortez APRN, C.N.P., D.N.P. PROCEDURE DETAILS Procedure Location knee Knee site: L knee joint Site prep: patient was prepped and draped in usual sterile fashion Procedural approach: anterolateral Procedure performed: injection only Needle gauge: 22 G Procedural Medication The following medications were administered at the target site(s) Local anesthetic: 8 mL lidocaine 10 mg/mL (1 %) Corticosteroid: 40 mg triamcinolone acetonide 40 mg/mL CONSENT Consent obtained: written PRE-PROCEDURE DETAILS Procedure purpose: therapeutic and diagnostic Indications: left knee pain Site preparation: povidone-iodine SEDATION / ANESTHESIA Anesthesia method: none POST-PROCEDURE DETAILS Procedure completed successfully: yes Complications: no apparent complications Discharge instructions: dressing care and follow-up with ordering provider documented in this encounter Plan of Treatment Not on filedocumented as of this encounter Procedures Procedure Name Priority Date/Time Associated Diagnosis Comme nts [place] ARTHCS ASP/INJ Routine 04/18/2022 10:13 AM Pain Knee Left R esults for this MJR JT WO US CDT procedure are i n the results section. documented in this encounter Results [place] ARTHCS ASP/INJ MJR JT WO US (04/18/2022 10:13 AM CDT) Narrative MMODAL - 04/18/2022 10:13 AM CDT Nelly Cast R.N. ? 04/18/2022 10:43 AM Knee site- L knee joint : injection only Date/Time: 04/18/2022 10:13 AM Performed by: Mary Cortez APRN, C.N. PDann, D.N.P. Authorized by: Mary Cortez APRN, C.N .PDann, D.N.P. PROCEDURE DETAILS Procedure Location knee Knee [...] compartment of the left knee. Mary Cortez APRN, C.N.P., D.N.P. IMG DIAGNOSTIC IMAG ING PROCEDURES documented in this encounter Visit Diagnoses Diagnosis Pain Knee Left - Primary Pain Knee Left documented in this encounter Administered Medications Inactive Administered Medications - up to 3 most recent administrations Medication Order MAR Action Action Date Dose Rate Site lidocaine 10 mg/mL (1 %) injection Given 04/18/2022 10:13 AM CDT 8 mL 8 mL (XYLOCAINE) 8 mL, infiltration, One-Time Injection, Starting on 8/5/22 at 1013, For 1 dose triamcinolone acetonide injection 40 mg Given 04/18/2022 10:13 A M CDT 40 mg (KENALOG-40) 40 mg, intra-articular, One-Time Injection, Starting on Thu04/18/22 at 1013, For 1 dose documented in this encounter Care Teams Customer Relationship Specialist Relationship Specialty Start Date End Date Elsewhere, Pcp PCP - General Family Medicine 01/31/21 documented as of this encounter
--- OUTSIDE RECORDS SUMMARY | 2022-05-06 13:08 | XMS_ITS | Encounter Summary ---
:1935 Author Organization [facility] Address [address] [place] [id number] Care Team Providers Name Role Phone Elsewhere, Pcp Primary Care Provider Unavailable Reason for Referral Outpatient (Routine) - Closed Specialty Diagnoses / Procedures Referred By Contact Refer red To Contact Otorhinolaryngology Diagnoses [facility] M[facility] [address] [place] [id number] Referral ID Status Reason Start Date Expiration Date Visits V isits Requested Authorized [id number] Closed Specialty 03/19/2021 03/19/2022 1 1 Services Required Encounter Details Date Type Department Care Team Description 03/19/2021 Orders Only Department of Neurology [place] , [place] (Primary Dx) in [facility] Candido Sage M.D. [address] [facility] [address] [place] [phone] Social History Tobacco Use Types Packs/Day Years Used Date Smoking Tobacco: Never Smokeless Tobacco: Never Alcohol Use Standard Drinks/Week Comments Not Currently 0 (1 standard drink = 0.6 oz pure alcoho l) Sex Assigned at Date Recorded Not on file documented as of this encounter Plan of Treatment Scheduled Referrals Name Type Priority Associated Order Schedule Diagnoses Otorhinolaryngology - Outpatient Routine Vertigo Expect ed: General non-surgical Referral 021 consult (clinic) (Approximat e), Expires: 03/19/2024 documented as of this encounter Visit Diagnoses Diagnosis Vertigo - Primary documented in this encounter Care Teams Tube Station Attendant Relationship Specialty Start Date End Date Elsewhere, Pcp PCP - General Family Medicine 01/31/21 documented as of this encounter
--- OUTSIDE RECORDS SUMMARY | 2022-05-06 13:09 | XMS_ITS | Encounter Summary ---
:1935 Author Organization [facility] Address [address] [place] [address] Care Team Providers Name Role Phone Elsewhere, Pcp Primary Care Provider Unavailable Encounter Details Date Type Department Care Team Description 10/08/2020 Clinical Communication Department of Kerri Jordan Otorhinolaryngology in [place], [place] [address] [place] [phone] [facility] [phone] [place] [address] Social History Tobacco Use Types Packs/Day Years Used Date Smoking Tobacco: Never Smokeless Tobacco: Never Alcohol Use Standard Drinks/Week Comments Not Currently 0 (1 standard drink = 0.6 oz pure alcoho l) Sex Assigned at Date Recorded Not on file documented as of this encounter Miscellaneous Notes Telephone Encounter - Kerri Jordan RChelsey - 10/08/2020 12:09 PM CST Specialty Surgical Services Triage Call Reason for call/visit Right ear pain Call Note: Assessment Patient calls today wondering if she would be able to see Dr. Solano for right ear irritation that started last night. Patient states that she feels like the ear is draining but it is not and when she lays on the right side it hurts, and when laying on the left side she notices she is not hearing as well when having to use the right ear. Patient states she was having discomfort t like this before Suzy and went to her primary and has been using drops in her ear. Patient states that the drops ran out about 3 weeks ago and not the discomfort is back. Patient denies fever or nasal drainage. Intervention Dr. Solano next available is , patient was offered to see primary care in [place] as they would be able to see her sooner. Patient states that she will call her PCP and make appointment to be seen with them. Patient instructed to use warm compress for the discomfort. Instructed patient to call back if unable to be seen by her PCP elsewhere. Patient understands and agrees to plan, no other questions at this time. Has patient called or presented with the same symptom previously no , states she was seen by her PCPdebbie [place] for same pain Is patient experiencing other symptoms: no The following references were used: nursing clinical judgement Education provided: patient/caller able to teach back Disposition/Recommendation: as above Caller agreeable to plan of care: yes The following individuals participated in today???s interaction: patient Development Editor used: no Additional concerns addressed: none SFITTER documented in this encounter Plan of Treatment Not on filedocumented as of this encounter Visit Diagnoses Not on filedocumented in this encounter Care Teams Behavioral Science Chair Relationship Specialty Start Date End Date Elsewhere, Pcp PCP - General Family Medicine 08/26/17 01/30/21 documented as of this encounter
--- OUTSIDE RECORDS SUMMARY | 2022-05-06 13:09 | XMS_ITS | Encounter Summary ---
:1935 Author Organization [facility] Address [address] [place] [address] Care Team Providers Name Role Phone Elsewhere, Pcp Primary Care Provider Unavailable Reason for Referral Outpatient (Routine) - Closed Specialty Diagnoses / Procedures Referred By Contact Refer red To Contact Endocrinology Diagnoses Osteoporosis Without Pathological Fracture Antonia Aldrich [place] bharati C.N.P. [address] [place], [place] [address] Referral ID Status Reason Start Date Expiration Date Visits Requ ested Visits Authorized [id number] Closed 06/30/2019 06/29/2020 1 1 Encounter Details Date Type Department Care Team Description 06/30/[address] [facility] Antonia Aldrich eoporosis Without [facility] QU[facility] Lee, C.N.PDann Pathological [facility] [address] Fracture (Primary [address] [place], [place] Dx) [place] [id number] Social History Tobacco Use Types Packs/Day Years Used Date Smoking Tobacco: Never Smokeless Tobacco: Never Alcohol Use Standard Drinks/Week Comments Not Currently 0 (1 standard drink = 0.6 oz pure alcoho l) Sex Assigned at Date Recorded Not on file documented as of this encounter Plan of Treatment Scheduled Referrals Name Type Priority Associated Diagnoses Order S chedule Endocrinology Referral Outpatient Routine Osteoporosis Witho ut Expected: Referral Pathological 06/30/2019 Fracture (Approximate), Expires: 06/30/2022 documented as of this encounter Visit Diagnoses Diagnosis Osteoporosis Without Pathological Fractu re - Primary documented in this encounter Additional Health Concerns Infection Onset Date Last Indicated Resolved Time COVID19 Pending 01/29/2021 01/29/2021 01/29/2021 11:29 PM CDT documented as of this encounter Care Teams Clothing Worker Relationship Specialty Start Date End Date Elsewhere, Pcp PCP - General Family Medicine 01/31/21 documented as of this encounter
--- OUTSIDE RECORDS SUMMARY | 2022-05-06 13:09 | XMS_ITS | Encounter Summary ---
:1935 Author Organization [facility] Address [address] [place] [address] Care Team Providers Name Role Phone Elsewhere, Pcp Primary Care Provider Unavailable Encounter Details Date Type Department Care Team Description 06/27/2019 Hospital Encounter Department of Antonia Aldrich, Osteoporosis Radiology in [address] [id number] [phone] Social History Tobacco Use Types Packs/Day Years Used Date Smoking Tobacco: Never Smokeless Tobacco: Never Alcohol Use Standard Drinks/Week Comments Not Currently 0 (1 standard drink = 0.6 oz pure alcoho l) Sex Assigned at Date Recorded Not on file documented as of this encounter Medications at Time of Discharge Medication Sig Dispensed Refills Start Date End Date CYANOCOBALAMIN, Take 1,000 mcg by mouth 0 011 VITAMIN B-12, ORAL daily. ferrous sulfate 325 mg Take 1 tablet by mouth 0 0 11/02/2013 (65 mg iron) tablet daily. fluticasone propionate Administer 2 sprays 16 g 12 04/16 (FLONASE) 50 into each nostril daily mcg/actuation nasal as needed for rhinitis spray or allergies. MULTIVITAMIN ORAL Take 1 tablet by mouth 0 2010 daily. omeprazole (PriLOSEC) Take 1 capsule by mouth 0 0 05/20/[address] capsule daily. cycloSPORINE Administer 1 drop into 30 vial 0 05/14/2019 08/12/2019 (RESTASIS) 0.05 % both eyes 2 (two) times ophthalmic emulsion a day. dorzolamide-timolol Administer 1 drop into 10 mL 12 04/1605/13/2020 (COSOPT) 22.3-6.8 the right eye daily. mg/mL ophthalmic solution albuterol (ACCUNEB) as needed. 0 05/14/201901/30 2.5 mg /3 mL nebulizer solution CALCIUM CITRATE ORAL Take 1 tablet by mouth 0 05/201201/30/2021 2 (two) times a day. EPINEPHrine (EPIPEN Inject 0.3 mg 0 04/10/2017 2-KRISTIN) 0.3 mg/0.3 mL intramuscularly as injection syringe needed for anaphylaxis. melatonin 3 mg tablet Take 2 tablets (6 mg 30 tablet 0 04/1601/30/2021 total) by mouth at bedtime as needed for sleep. nystatin (MYCOSTATIN) as needed. 0 05/20/2019 100,000 unit/mL suspension ondansetron ODT Take 4 mg by mouth 0 05/14/2019 0 03/26/2021 (ZOFRAN-ODT) 4 mg daily as needed disintegrating tablet (vertigo). documented as of this encounter Plan of Treatment Not on filedocumented as of this encounter Procedures Procedure Name Priority Date/Time Associated Comments Diagnosis BMD BONE DENSITY RAD - Routine 06/27/2019 9:25 Osteoporosis Results for this SPINE HIPS (most inpatients AM CDT procedure a re in and all the results outpatients) section. documented in this encounter Results BMD Bone Density Spine Hips (06/27/2019 9:25 AM CDT) Anatomical Region Laterality Modality Hip, Lumbar Spine, Nuclear Medicine RST LOS, N/A Radiographic Imaging Musculoskeletal ARZ LOS, Muskuloskeletal FLA LOS Specimen (Source) Anatomical Collection Method Collection Time Re ceived Time Location / / Volume Laterality 06/27/2019 9:30 AM CDT Impressions 06/27/2019 9:37 AM CDT Osteoporosis. Narrative 06/27/2019 9:37 AM CDT EXAM: BMD BONE DENSITY SPINE HIPS COMPARISON: 06/09/2017 System Auditor/Model: [employer] FINDINGS: ?? LUMBAR SPINE The L1 and L3 levels were included. L2 a nd L4 were excluded secondary to degenerative change. Lumbar BMD: 1 gm/cm2 T-score: -1.5 BMD % change: -1.7% Significance: BMD not significantly moura ged from the comparison exam. HIP(S) Lowest femoral BMD: 0.754 gm/cm 2 Lowest T-score: -2 BMD % change: -0.2% Significance: BMD not significantly moura ged from the comparison exam. Region of interest: Left forearm radius 33%: Bone mineral density: 0.481 T score: -3.2. BMD percent change: 2% Significance: BMD not significantly moura ged from the comparison exam. FRAX 10 year probability of major osteop orotic fracture 16 % FRAX 10 year probability of hip fracture ??5 % FRAX scores: Not clinically validated fo r patients with history of therapy with bisphosphonates in the past two years, c alcitonin in the last year, PTH in the last year, Denosumab in the last year. ? ?Calcium and vitamin D do NOT constitute treatment' in this context. ??All treat ment decisions require clinical judgement and consideration of individual patient factors which may not be captured in the FRAX model and the risk of fracture may be over- or under-estimated by FRAX. Treatment recommended for: Patients with hip or vertebral fracture (clinical or morphometric). Patients with osteoporosis at the spine and/or hip as defined by T-score <= -2.5. Postmenopausal women or men age 50 and o lder with low bone mass (T-score -1 to -2.5, osteopenia) at the femoral neck, t otal hip, or spine and 10 year hip fracture probability >3% or a 10 year al l major osteoporosis related fracture probability of >20% based on the [place] apted WHO absolute risk model. Exclude secondary causes of low bone den sity in the appropriate clinical setting. Follow-up exams should be performed at n o sooner than two-year intervals. Direct comparison can only be performed on exams performed at the same facility. World Health Organization T-score criter ia: 0 to -1.0 ?? Normal range < -1.0 to > -2.5 ?? Low bone density (os teopenia) -2.5 or less ?? Osteoporosis Procedure Note Alfonso Anderson M.D. - 06/27/2019Formatt ing of this note might be different from the original. EXAM: BMD BONE DENSITY SPINE HIPS COMPARISON: 06/09/2017 System Auditor/Model: [employer] FINDINGS: LUMBAR SPINE The L1 and L3 levels were included. L2 a nd L4 were excluded secondary to degenerative change. Lumbar BMD: 1 gm/cm2 T-score: -1.5 BMD % change: -1.7% Significance: BMD not significantly moura ged from the comparison exam. HIP(S) Lowest femoral BMD: 0.754 gm/cm 2 Lowest T-score: -2 BMD % change: -0.2% Significance: BMD not significantly moura ged from the comparison exam. Region of interest: Left forearm radius 33%: Bone mineral density: 0.481 T score: -3.2. BMD percent change: 2% Significance: BMD not significantly moura ged from the comparison exam. FRAX 10 year probability of major osteop orotic fracture 16 % FRAX 10 year probability of hip fracture 5 % FRAX scores: Not clinically validated fo r patients with history of therapy with bisphosphonates in the past two years, c alcitonin in the last year, PTH in the last year, Denosumab in the last year. C alcium and vitamin D do NOT constitute treatment' in this context. All treatme nt decisions require clinical judgement and consideration of individual patient factors which may not be captured in the FRAX model and the risk of fracture may be over- or under-estimated by FRAX. Treatment recommended for: Patients with hip or vertebral fracture (clinical or morphometric). Patients with osteoporosis at the spine and/or hip as defined by T-score <= -2.5. Postmenopausal women or men age 50 and o lder with low bone mass (T-score -1 to -2.5, osteopenia) at the femoral neck, t otal hip, or spine and 10 year hip fracture probability >3% or a 10 year al l major osteoporosis related fracture probability of >20% based on the [place] apted WHO absolute risk model. Exclude secondary causes of low bone den sity in the appropriate clinical setting. Follow-up exams should be performed at n o sooner than two-year intervals. Direct comparison can only be performed on exams performed at the same facility. World Health Organization T-score criter ia: 0 to -1.0 Normal range < -1.0 to > -2.5 Low bone density (osteo penia) -2.5 or less Osteoporosis IMPRESSION: Osteoporosis. Antonia LLANES DXA PROCEDURES documented in this encounter Visit Diagnoses Diagnosis Osteoporosis documented in this encounter Care Teams Sample Case Porter Relationship Specialty Start Date End Date Elsewhere, Pcp PCP - General Family Medicine 08/26/17 01/30/21 documented as of this encounter
--- OUTSIDE RECORDS SUMMARY | 2022-05-06 13:09 | XMS_ITS | Encounter Summary ---
:1935 Author Organization [facility] Address [address] [place] [id number] Care Team Providers Name Role Phone Elsewhere, Pcp Primary Care Provider Unavailable Encounter Details Date Type Department Care Team Description 05/13/2019 - Hospital Encounter [facility] Con Rodriguez Benign Paroxysmal Positional Bilateral (Primary Dx); 05/14/2019 Prasanth Sher M.D. Arthritis Rheumatoid (HCC); [place] [address] [place] [address] [address] [place], [place] [phone] [id number] (Work) [phone] Social History Tobacco Use Types Packs/Day Years Used Date Smoking Tobacco: Never Smokeless Tobacco: Never Alcohol Use Standard Drinks/Week Comments Not Currently 0 (1 standard drink = 0.6 oz pure alcoho l) Sex Assigned at Date Recorded Not on file documented as of this encounter Last Filed Vital Signs Vital Sign Reading Time Taken Comments Blood Pressure 145/78 05/14/2019 2:24 PM CDT Pulse 69 05/14/2019 2:24 PM CDT Temperature 36.5 ??C (97.7 ??F) 05/14/2019 2:24 PM CDT Respiratory Rate 16 05/14/2019 2:24 PM CDT Oxygen Saturation 98% 05/14/2019 2:24 PM CDT Inhaled Oxygen Concentration - - Weight 70.6 kg (155 lb 10.3 oz) 05/13/2019 7:00 PM CDT Height 157.5 cm (5' 2.01) 05/13/2019 7:00 PM CDT Body Mass Index 28.46 05/13/2019 7:00 PM CDT documented in this encounter Discharge Summaries Con Rodriguez M.D. - 05/14/2019 11:54 AM CDT INPATIENT DISCHARGE SUMMARY BRIEF OVERVIEW Discharge Provider: Con Rodriguez M.D. Primary Care Providers: Elsewhere, Pcp (General) No address on file Admission Date: 05/13/2019 Discharge Date: 05/14/2019 REASON FOR ADMISSION Vertigo Benign Paroxysmal Positional Bilateral Vertigo Benign Paroxysmal Positional Bilateral PRINCIPAL DIAGNOSIS No Principal Problem: There is no principal problem currently on the Problem List. Please update theProblem List and refresh. SECONDARY DIAGNOSES Active Problems: Vertigo Benign Paroxysmal Positional Bilateral Resolved Problems: * No resolved hospital problems. * DISCHARGE DISPOSITION: Home or Self Care [1] PHYSICAL EXAMINATION: Vitals: 05/14/19 0555 BP: 130/75 Pulse: (!) 57 Resp: 18 Temp: 36.2 ??C SpO2: 97% General appearance: No distress HEENT: No nystagmus, extraocular movements intact, pupils equal round reactive to light Lungs: Clear to auscultation Cardiac: S1-S2 Abdomen: Bowel sounds positive Extremities: No edema Neurologic: Alert and oriented x3, speech is fluent and she walks with a walker independently OUTPATIENT FOLLOW UP Future Appointments Date Time Provider Department Center 06/20/2019 9:00 AM DX [facility] BMD RM 01 RAD DX [facility] 06/20/2019 9:15 AM BI CACF RM 01 RAD BI [facility] DISCHARGE MEDICATIONS Discharge Medications TAKE these medications albuterol 2.5 mg /3 mL nebulizer solution Commonly known as: ACCUNEB Take 3 mL (2.5 mg total) by nebulization every 6 (six) hours as needed for wheezing or shortness of breath. calcium carbonate 500 mg (200 mg calcium) chewable tablet Commonly known as: TUMS Chew 2 tablets (400 mg of calcium total) 2 (two) times a day. CALCIUM CITRATE ORAL Take 1 tablet by mouth 2 (two) times a day. CYANOCOBALAMIN (VITAMIN B-12) ORAL Take 1,000 mcg by mouth daily. cycloSPORINE 0.05 % ophthalmic emulsion Commonly known as: RESTASIS Administer 1 drop into both eyes 2 (two) times a day. dorzolamide-timolol 22.3-6.8 mg/mL ophthalmic solution Commonly known as: COSOPT Administer 1 drop into the right eye daily. EPIPEN 2-KRISTIN 0.3 mg/0.3 mL injection syringe Inject 0.3 mg intramuscularly as needed for anaphylaxis. Generic drug: EPINEPHrine ferrous sulfate 325 mg (65 mg iron) tablet Take 1 tablet by mouth daily. fluticasone propionate 50 mcg/actuation nasal spray Commonly known as: FLONASE Administer 2 sprays into each nostril daily as needed for rhinitis or allergies. meclizine 25 mg tablet Commonly known as: ANTIVERT Take 1 tablet (25 mg total) by mouth 3 (three) times a day as needed for dizziness for up to 9 days. melatonin 3 mg tablet Take 2 tablets (6 mg total) by mouth at bedtime as needed for sleep. MULTIVITAMIN ORAL Take 1 tablet by mouth daily. DETAILS OF HOSPITAL STAY HOSPITAL COURSE Patient presented to hospital because of paroxysmal benign positional vertigo. This slowly improved during her stay. Initially she was under observation and she was converted to acute care she receivedintravenous corticosteroid as well as evaluation by physical therapy for vestibular rehabilitation. This slowly improved and by the time of her discharge she was ambulatory with a walker with her symptoms improved but not disappeared. She was advised to be careful with her activity choices at home andto follow up with physical therapy in a couple days for further vestibular rehabilitation. CONDITION AT DISCHARGE Stable. Con Rodriguez M.D. documented in this encounter Discharge Instructions AppointmentsCorrie Saul R.N. - 05/14/2019 1:44 PM CDT Please call on May 17 to schedule a follow-up hospital visit with your primary care provider at [facility] ([phone]). Also call [facility] ([phone]) to schedule a physical therapy appointment. AttachmentsThe following attachments cannot be sent through Care Everywhere. Dizziness ([place])Benign Paroxysmal Positional Vertigo (BPPV) ([place]) Exercises for Horizontal Canal Benign Paroxysmal Positional Vertigo (BPPV) ([place])Exercises to Help With Dizziness ([place])documented in this encounter Medications at Time of Discharge Medication Sig Dispensed Refills Start Date End Date CYANOCOBALAMIN, Take 1,000 mcg by mouth 0 011 VITAMIN B-12, ORAL daily. ferrous sulfate 325 mg Take 1 tablet by mouth 0 0 11/02/2013 (65 mg iron) tablet daily. MULTIVITAMIN ORAL Take 1 tablet by mouth 0 2010 daily. fluticasone propionate Administer 2 sprays 16 g 12 04/16 (FLONASE) 50 into each nostril daily mcg/actuation nasal as needed for rhinitis spray or allergies. dorzolamide-timolol Administer 1 drop into 10 mL 04/1605/13/2020 (COSOPT) 22.3-6.8 the right eye daily. mg/mL ophthalmic solution meclizine (ANTIVERT) Take 1 tablet (25 mg 1 tablet 0 05/1305/22/2019 25 mg tablet total) by mouth 3 (three) times a day as needed for dizziness for up to 9 days. CALCIUM CITRATE ORAL Take 1 tablet by mouth 0 05/201201/30/2021 2 (two) times a day. cycloSPORINE Administer 1 drop into 30 vial 0 05/14/2019 08/12/2019 (RESTASIS) 0.05 % both eyes 2 (two) times ophthalmic emulsion a day. albuterol (ACCUNEB) as needed. 0 05/14/201901/30 2.5 mg /3 mL nebulizer solution EPINEPHrine (EPIPEN Inject 0.3 mg 0 04/10/2017 2-KRISTIN) 0.3 mg/0.3 mL intramuscularly as injection syringe needed for anaphylaxis. melatonin 3 mg tablet Take 2 tablets (6 mg 30 tablet 0 04/1601/30/2021 total) by mouth at bedtime as needed for sleep. ondansetron ODT Take 4 mg by mouth 0 05/14/2019 0 03/26/2021 (ZOFRAN-ODT) 4 mg daily as needed disintegrating tablet (vertigo). documented as of this encounter H&P Notes Con Rodriguez M.D. - 05/13/2019 8:42 PM CDT SUBJECTIVE REASON FOR ADMISSION Kathryn Leon is a 84 y.o. female who presents for evaluation of Vertigo Benign Paroxysmal Positional Bilateral [H81.13] Vertigo Benign Paroxysmal Positional Bilateral [H81.13] HISTORY OF PRESENT ILLNESS Persistent severe positional vertigo after a extended car ride the day before her admission through the emergency room. Initially she was in hospital observation, please see notes regarding this. She has been evaluated by physical occupational therapy and vestibular rehabilitation is underway with their plan. She has also been receiving intravenous corticosteroid. Now she is present for admission to acute care her symptoms are still debilitating, prevented her from walking without an assistive device and has not been given clearance to be safe at home. The following portions of the patient's history were reviewed and updated as appropriate: allergies,current medications, family history, medical history, social history, surgical history and problem list. No past medical history on file. Past Surgical History: Procedure Laterality Date ??? EXTRACAPSULAR CATARACT EXTRACTION AND INSERTION OF INTRAOCULAR LENS N/A 02/26/2007 Extracapsular cataract removal with insertion of intraocular lens prosthesis (1 stage procedure), manual or mechanical technique (eg, irrigation and aspiration or phacoemulsification).. ??? HYSTERECTOMY N/A 11/04/1966 Hysterectomy ??? INTERNAL HEMORRHOIDECTOMY N/A 02/26/1959 Hemorrhoidectomy, internal and external, single column/group;.. ??? OTHER CONVERTED SHX (SEE COMMENT) N/A 02/02/2007 >Esophagogastroduodenoscopy with Biopsies ??? OTHER CONVERTED SHX (SEE COMMENT) N/A 02/15/2010 >1. Right L3 partial hemilaminectomy. 2. Complete L4 hemilaminectomy. ??? REDUCTION MAMMOPLASTY N/A 02/26/1982 Reduction mammaplasty.. ??? REPAIR OF CYSTOCELE N/A 1995 Repair of cystocele Family History Problem Relation Age of Onset ??? Glaucoma Father ??? Down syndrome Brother ??? Kidney disease Brother ??? Celiac disease Brother ??? Breast cancer Mother's Sister Social History Socioeconomic History ??? Marital status: Spouse name: Not on file ??? Number of children: Not on file ??? Years of education: Not on file ??? Highest education level: Not on file Occupational History ??? Not on file Social Needs ??? Financial resource strain: Not on file ??? Food insecurity: Worry: Not on file Inability: Not on file ??? Transportation needs: Medical: Not on file Non-medical: Not on file Tobacco Use ??? Smoking status: Never Smoker ??? Smokeless tobacco: Never Used Substance and Sexual Activity ??? Alcohol use: Not Currently ??? Drug use: Defer ??? Sexual activity: Yes Lifestyle ??? Physical activity: Days per week: Not on file Minutes per session: Not on file ??? Stress: Not on file Relationships ??? Social connections: Talks on phone: Not on file Gets together: Not on file Attends anabaptist service: Not on file Active member of club or organization: Not on file Attends meetings of clubs or organizations: Not on file Relationship status: Not on file ??? Intimate partner violence: Fear of current or ex partner: Not on file Emotionally abused: Not on file Physically abused: Not on file Forced sexual activity: Not on file Other Topics Concern ??? Not on file Social History Narrative ??? Not on file Allergies Allergen Reactions ??? Gluten Other (see comments) cerner listed no reaction ??? Miconazole Other (see comments) MICONAZOLE NITRATE ??? Nut - Unspecified Other (see comments) cerner listed no reaction Current Outpatient Medications on File Prior to Encounter Medication Sig Last Dose ??? CALCIUM CITRATE ORAL Take 1 tablet by mouth 2 (two) times a day. 05/12/2019 at 0800 ??? CYANOCOBALAMIN, VITAMIN B-12, ORAL Take 1,000 mcg by mouth daily. 05/12/2019 at 0800 ??? cycloSPORINE (RESTASIS) 0.05 % ophthalmic emulsion Administer 1 drop into both eyes every 12 (twelve) hours. 05/13/2019 at 0958 ??? dorzolamide-timolol (COSOPT) 22.3-6.8 mg/mL ophthalmic solution Administer 1 drop into the righteye daily. 05/13/2019 at 0943 ??? ferrous sulfate 325 mg (65 mg iron) tablet Take 1 tablet by mouth daily. 05/12/2019 at 0800 ??? fexofenadine-pseudoephedrine (MING-D 12 HOUR) 60-120 mg per 12 hr tablet Take 1 tablet by mouth 2 (two) times a day. 05/12/2019 at 0800 ??? fluticasone (FLONASE) 50 mcg/actuation nasal spray Administer 2 sprays into each nostril daily. 05/12/2019 at 0800 ??? meclizine (ANTIVERT) 25 mg tablet Take 1 tablet (25 mg total) by mouth 3 (three) times a day as needed for dizziness for up to 9 days. 05/13/19 at 0620 ??? melatonin 3 mg tablet Take 2 tablets (6 mg total) by mouth at bedtime. 05/12/2019 at 2310 ??? MULTIVITAMIN ORAL Take 1 tablet by mouth daily. 05/12/2019 at 0800 ??? ondansetron (ZOFRAN) 4 mg tablet Take 1 tablet (4 mg total) by mouth every 8 (eight) hours as needed for nausea or vomiting for up to 10 days. 05/12/2019 at 1637 ??? pantoprazole (PROTONIX) 40 mg EC tablet Take 1 tablet (40 mg total) by mouth every morning before breakfast. 05/13/2019 at 0620 ??? simethicone (MYLICON) 80 mg chewable tablet Chew 1 tablet (80 mg total) 4 (four) times a day as needed for flatulence. 05/12/2019 at 2310 ??? BIOTIN ORAL Take by mouth daily. 05/11/19 at Unknown time ??? EPINEPHrine (EPIPEN 2-KRISTIN) 0.3 mg/0.3 mL injection syringe Inject 0.3 mg intramuscularly as needed for anaphylaxis. More than a month at Unknown time ??? ondansetron ODT (ZOFRAN-ODT) 4 mg disintegrating tablet Take 1 tablet (4 mg total) by mouth 4 (four) times a day as needed for nausea or vomiting for up to 7 days. ??? sodium chloride 0.9 % injection Infuse 2-10 mL into a venous catheter as needed for line care. REVIEW OF SYSTEMS REVIEW OF SYSTEMS OBJECTIVE Blood pressure 130/75, pulse (!) 57, temperature 36.2 ??C, temperature source Temporal, resp. rate 18, height 157.5 cm, weight 70.6 kg, SpO2 97 %. PHYSICAL EXAMINATION Physical Exam Lab Results Component Value Date WBC 8.4 05/14/2019 HGB 13.0 05/14/2019 HCT 39.2 05/14/2019 MCV 91.0 05/14/2019 PLT 143 (L) 05/14/2019 Lab Results Component Value Date NA 139 05/14/2019 K 4.3 05/14/2019 CL 103 05/14/2019 HCO3 25 05/14/2019 CREATININE 0.81 05/14/2019 EGFR 68 05/14/2019 BUN 18 05/14/2019 ANIONGAP 11 05/14/2019 GLUCOSE 146 (H) 05/14/2019 CALCIUM 9.1 05/14/2019 Lab Results Component Value Date URINESOURCE Cath Urine 05/15/2013 CLARITYU Clear 04/06/2016 LEUKOCYTESU Negative 04/06/2016 GLUCOSEU Negative 04/06/2016 KETONESU Negative 04/06/2016 SPECGRAV 1.010 04/06/2016 UROBILINOGEN 0.2 04/06/2016 Lab Results Component Value Date ALT 81 (H) 05/12/2019 AST 44 (H) 05/12/2019 GGT 120 (H) 07/10/2015 ALKPHOS 67 05/12/2019 BILITOT 0.4 05/12/2019 No results found. ASSESSMENT / PLAN #1 Vertigo Benign Paroxysmal Positional Bilateral Persistent. Exacerbating factor seems mostly related to a extended car ride with much of her time having her visual focus on a else ED screen tablet. She also has a history of positional vertigo in thepast. Plan will be to continue corticosteroid with 40 mg of Solu-Medrol every 6 hours intravenously. Vestibular rehabilitation per physical therapy. Expect that she will be able to be ready to go home in 1-2days. Expected Discharge Date: . May 14, 2019 Con Rodriguez M.D. documented in this encounter Consult Notes Antonia Tillman P.T. - 05/14/2019 10:39 AM CDT Physical Therapy Inpatient Evaluation/Treatment SUBJECTIVE Patient's Name: Kathryn Leon Referring/Attending Provider: Con Rodriguez M.D. Medical Diagnosis: Vertigo Benign Paroxysmal Positional Bilateral [H81.13] Vertigo Benign Paroxysmal Positional Bilateral [H81.13] Reason for Referral: PT eval and treat: BPPV and mobility assessment Onset Date: 05/12/19 Payor: MEDICARE / Plan: MEDICARE A AND B / Product Type: Medicare / PERTINENT MEDICAL / SURGICAL HISTORY: Patient Active Problem List Diagnosis ??? Arthritis Rheumatoid (HCC) ??? Vertigo ??? Vertigo Benign Paroxysmal Positional Bilateral Past Surgical History: Procedure Laterality Date ??? EXTRACAPSULAR CATARACT EXTRACTION AND INSERTION OF INTRAOCULAR LENS N/A 02/26/2007 Extracapsular cataract removal with insertion of intraocular lens prosthesis (1 stage procedure), manual or mechanical technique (eg, irrigation and aspiration or phacoemulsification).. ??? HYSTERECTOMY N/A 11/04/1966 Hysterectomy ??? INTERNAL HEMORRHOIDECTOMY N/A 02/26/1959 Hemorrhoidectomy, internal and external, single column/group;.. ??? OTHER CONVERTED SHX (SEE COMMENT) N/A 02/02/2007 >Esophagogastroduodenoscopy with Biopsies ??? OTHER CONVERTED SHX (SEE COMMENT) N/A 02/15/2010 >1. Right L3 partial hemilaminectomy. 2. Complete L4 hemilaminectomy. ??? REDUCTION MAMMOPLASTY N/A 02/26/1982 Reduction mammaplasty.. ??? REPAIR OF CYSTOCELE N/A 1995 Repair of cystocele History of Present Illness: Vertigo started 05/12/19, was seen in the ED, admitted to hospital for obs and transferred into acute setting. Pt treated by PT for BPPV. Home Equipment Gait Devices : Walker rolling or standard, Cane Family/Caregiver Present: No Patient/Caregiver Goals: Decreased vertigo, return home Patient Comments: Reports that her symptoms were improving today. However at the end of the session she did have an episode of vertigo with looking up. Patient was able to tolerate the canalith repositioning without emesis. Patient still plans to return home today and understands to connect with the physical therapy department for any ongoing symptoms of vertigo. Activity Orders (From admission, onward) Start Ordered 05/13/192117 Activity: Up Ad Anne Until discontinued Comments: Encourage patient to be up for meals Ambulate as much as possible considering previous activity level and physical functioning Resume activity level following recovery from procedure and/or tests unless otherwise directed Question: Activity Level: Answer: Up Ad Anne 05/13/192120 Precautions Other Precautions: vertigo, fall risk OBJECTIVE Pain Assessment Pain Assessment: 0-10 Numeric Pain Intensity Scale Pain Score: 0 - No pain Pt in recliner prior to session. Reported her symptoms were improving. [place] tired today and off. Vitals in recliner: BP 159/56 mmHg, HR 79, oxygen at 100%. Pt had an episode of vertigo at end of session when looking up. At this time we did Jimmy Hallpike andshe was positive for R BPPV. No nystagmus was seen. Treated again for R anterior canal with canalithrepositioning x 2 reps. Nurse assisted. Pt was educated to avoid sleeping on R side and keep HOB elevated tonight. She plans to sleep in herrecliner. She understands to call and follow up with OP physical therapy early this week. Measures - Tools Cognition Overall Cognitive Status: Intact Arousal/Alertness: Appropriate responses to stimuli Attention: Addressed, no concerns noted Orientation: Oriented X4 Following Commands: Follows all commands and directions without difficulty Safety / Judgment: Addressed, no concerns noted Impulsive: Addressed, no concerns noted Bed Mobility Bed Mobility: Yes Bed Mobility - Supine to Sit Level of Assistance: Modified Independent Device: None Bed Mobility - Sit to Supine Level of Assistance: Modified Independent Device: None Bed Mobility - Scooting Level of Assistance: Modified Independent Device: None Transfer - Sit to Stand Device: Front wheeled walker Level of Assistance: Supervision/Set-up Transfer - Stand to Sit Level of Assistance: Supervision/Set-up Device: Front wheeled walker Transfers Transfer: Yes Transfer - Bed, Chair, Wheelchair Device: 2WW Level of Assistance: Supervision/ Set-up Gait Assessment Level of Assistance: Supervision/Set-up Device: Front wheeled walker Distance (m): (250 ft) Assessment of Gait: slow pace. Training/Intervention: Pt was educated she should use her walker at home until she feels stronger. If she continues to feel weak with ambulation, to initiate OP physical therapy. Stairs Level of Assistance: Supervision/Set-up # Stairs: 4 Rails: 2 Pt understands to use her walker at home until she is feeling stronger as her weakness puts her at a risk of falling. Assessment Discharge Considerations: Discharge Recommendation: Ongoing skilled outpatient therapy recommended Equipment Recommended PT: Walker Clinical Impression: Ms. Leon is a 84 y.o. who has been hospitalized 1 day(s) with an admitting diagnosis of: Vertigo Benign Paroxysmal Positional Bilateral [H81.13] Vertigo Benign Paroxysmal Positional Bilateral [H81.13]. Prior to hospitalization patient was completing daily activities independently. Currently, patient presents with impairments including vertigo resulting in the following functional deficits: decreased tolerance to positional changes and mobility. Rehab potential: Ms. Leon has Good potential to achieve established physical therapy goals withinthe time frame outlined below. Education was provided regarding evaluative findings, diagnosis, prognosis, potential risks and benefits of rehabilitation interventions. Therapy findings and recommendations were discussed with Kathryn. The treatment plan and discharge recommendations may be modified based upon pt response to treatment. Comorbidities: history of vertigo Personal Factors: Age Clinical Presentation: Stable Examination elements: 1-2 Clinical Decision Making: Low: no complicating factors, 1-2 eval elements, stable clinical presentation Functional Goals and Timeframes: None Plan Patient agrees with the plan of care and goals. PT Frequency: PT Duration: Inpatient PT Received On Date: 05/14/19 Requires Inpatient Follow-Up: No Next Inpatient Appointment: Plan for next session: Plan Comments: IE only Other PT Comments: Pt was left to rest in recliner at end of session, call light given, no distress.Communicated with the hospitalist regarding treatment for R anterior canal and ongoing symptoms. Treatment interventions may include: Time Spent with Patient PT Evaluation (min): 20 min Canalith Repositioning (min): 10 min Total Treatment Time (min): 30 min Functional G-code Worksheet Antonia Tillman P.T. [facility], Second Floor [address] [place] [id number] Dept: [phone] documented in this encounter Nursing Notes Corrie Saul R.N. - 05/14/2019 3:50 PM CDT Problem: PAIN - ADULT Goal: PT VERBALIZES/DEMONSTRATES ADEQUATE COMFORT LEVEL OR BASELINE Outcome: Adequate for Discharge Problem: KNOWLEDGE DEFICIT Goal: Patient/family/caregiver demonstrates understanding of disease process, treatment plan, medications, and discharge instructions Outcome: Adequate for Discharge Problem: INFECTION - ADULT Goal: Absence of infection during hospitalization Outcome: Adequate for Discharge Problem: SKIN/TISSUE INTEGRITY Goal: Skin/Tissue integrity maintained or improved Outcome: Adequate for Discharge Goal: Oral and Nasal mucous membranes remain intact Outcome: Adequate for Discharge Problem: SAFETY ADULT Goal: Maintain a safe environment Outcome: Adequate for Discharge Problem: DISCHARGE PLANNING Goal: Patient discharge needs identified Outcome: Adequate for Discharge Problem: SAFETY ADULT - RISK FOR FALL AND OR FALL INJURY Goal: Patient remains free from fall/fall injury Outcome: Adequate for Discharge Shift Goals: adequate pain management, appropriate call light use, remain free from nausea and dizziness, adequate PO intake, discharge to home Identify possible barriers to meeting goals/advancing plan of care: lightheadedness End of Shift Summary: Patient denies pain this shift. Up to chair for breakfast and stayed in chair for majority of shift. Worked with PT today and ambulated in hallway, did get dizzy at end of walk per therapy. Otherwise patient stated she just felt lightheaded a little but better than yesterday. No nausea this shift. Patient tolerating oral intake well, taking it slow. Using call light appropriately. Discharged to home at 1435 with transported. Assisted into vehicle with staff assist. AVS gone through with patient and at time of discharge. All belongings sent home with patient. Kvng Rao R.N. - 05/14/2019 3:30 AM CDT Shift Goals: Problem: PAIN - ADULT Goal: PT VERBALIZES/DEMONSTRATES ADEQUATE COMFORT LEVEL OR BASELINE Outcome: Progressing Problem: KNOWLEDGE DEFICIT Goal: Patient/family/caregiver demonstrates understanding of disease process, treatment plan, medications, and discharge instructions Outcome: Progressing Problem: INFECTION - ADULT Goal: Absence of infection during hospitalization Outcome: Progressing Problem: SAFETY ADULT Goal: Maintain a safe environment Outcome: Progressing Problem: SAFETY ADULT - RISK FOR FALL AND OR FALL INJURY Goal: Patient remains free from fall/fall injury Outcome: Progressing Identify possible barriers to meeting goals/advancing plan of care: Patient is unsteady on her feet. End of Shift Summary: Patient denies pain overnight and sleeps well. Patient has had vertigo in the past and verbalizes understanding of current plan of care and treatment. Patient plans to discharge today. Patient is free from signs and symptoms of infection. Patient uses her call light appropriatelyand does not attempt to transfer without assistance. Patient is unsteady on her feet and requires assistance from staff to ambulate to and from the bathroom. Patient states that her symptoms are improving. documented in this encounter Plan of Treatment Not on filedocumented as of this encounter Procedures Procedure Name Priority Date/Time Associated Diagnosis Comme nts CBC WITH Routine 05/14/2019 6:56 AM Results f or this DIFFERENTIAL, B CDT procedure ar e in the results section. BASIC METABOLIC Routine 05/14/2019 6:56 AM Result s for this PANEL, S/P CDT procedure are i n the results section. documented in this encounter Results (ABNORMAL) CBC with Differential (05/14/2019 6:56 AM CDT) [facility] gist Method Time Signature Hemoglobin 13.0 11.6 - 05/14/2019 15.0 g/dL 7:17 AM CDT Hematocrit 39.2 35.5 - 05/14/2019 44.9 % 7:17 AM CDT Erythrocytes 4.31 3.92 - 05/14/2019 5.13 7:17 AM CDT x10(12)/L MCV 91.0 78.2 - 05/14/2019 97.9 fL 7:17 AM CDT RBC Distrib Width 12.7 12.2 - 05/14/2019 16.1 % 7:17 AM CDT Platelet Count 143 (L) 157 - 371 05/14/2019 x10(9)/L 7:17 AM CDT Leukocytes 8.4 3.4 - 9.6 05/14/2019 x10(9)/L 7:17 AM CDT Neutrophils 7.48 (H) 1.56 - 05/14/2019 6.45 7:17 AM CDT x10(9)/L Lymphocytes 0.71 (L) 0.95 - 05/14/2019 3.07 7:17 AM CDT x10(9)/L Monocytes 0.19 (L) 0.26 - 05/14/2019 0.81 7:17 AM CDT x10(9)/L Eosinophils 0.00 (L) 0.03 - 05/14/2019 0.48 7:17 AM CDT x10(9)/L Basophils 0.00 (L) 0.01 - 05/14/2019 0.08 7:17 AM CDT x10(9)/L Specimen Anatomical Collection Method Collection Time Receive d Time (Source) Location / / Volume Laterality Blood (Blood, 05/14/2019 6:56 AM 05/14/20 19 6:56 Venous) CDT AM CDT Con Rodriguez M.D. LAB BLOOD ADD-ON Performing Organization Address City/State/ZIP Code Phon e Number [facility] [id number] [address] [place] [address] [facility] (ABNORMAL) BMP (Basic Metabolic Panel) (05/14/2019 6:56 AM CDT) P athologist Signature Potassium, S 4.3 3.6 - 5.2 05/14/2019 mmol/L 7:55 AM CDT Sodium, S 139 135 - 145 05/14/2019 mmol/L 7:55 AM CDT Chloride, S 103 98 - 107 05/14/2019 mmol/L 7:55 AM CDT Bicarbonate, S 25 22 - 29 05/14/2019 mmol/L 7:55 AM CDT Anion Gap 11 7 - 15 05/14/2019 7:55 AM CDT BUN (Blood Urea 18 6 - 21 05/14/2019 Nitrogen), S mg/dL 7:55 AM CDT Creatinine 0.81 0.59 - 05/14/2019 1.04 mg/dL 7:55 AM CDT eGFR-Non 68 >=60 05/14/2019 Black/ mL/min/BSA 7:55 AM CDT [place]ian Comment: ----ADDITIONAL INFORMATION---- Estimated GFR calculated using the 2009 CKD_EPI creatinine equation. eGFR-Black/ 78 >=60 mL/min/BSA 2018 7:55 AM CDT Comment: ----ADDITIONAL INFORMATION---- Estimated GFR calculated using the 2009 CKD_EPI creatinine equation. Calcium, Total, S 9.1 8.8 - 10.2 mg/dL 05/14/2019 7:55 AM CDT Glucose, S 146 (H) 70 - 140 mg/dL 05/14/2019 7:55 AM CDT Specimen Anatomical Collection Method Collection Time Receive d Time (Source) Location / / Volume Laterality Blood (Blood, 05/14/2019 6:56 AM 05/14/20 6:56 Venous) CDT AM CDT Con Rodriguez M.D. 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) Vertigo documented in this encounter Admitting Diagnoses Diagnosis Vertigo Benign Paroxysmal Positional Jeff ateral documented in this encounter Administered Medications Inactive Administered Medications - up to 3 most recent administrations Medication Order MAR Action Action Date Dose Rate Site albuterol nebulizer solution 2.5 mg (ACC UNEB) 2.5 mg, nebulization, Every 6 hours PRN, wheezing, shortness of breath, Starting on Thu05/13/19 at 2117 calcium carbonate chewable tablet 400 mg of calcium (TUMS) 400 mg of calcium, oral, Every 2 hour SC N, heartburn, indigestion, Starting on Thu05/13/19 at 2117, Doses listed are in mg of elemental calcium. Take with food. 500 mg calcium carbonate contains 200 mg of elemental calc ium. cycloSPORINE 0.05 % ophthalmic emulsion 1 Given 05/14/2019 9:39 AM CDT 1 drop drop (RESTASIS) 1 drop, both eyes, 2 times daily, First dose on Thu05/13/19 at 2200 Given 05/13/2019 10:11 PM CDT 1 drop enoxaparin injection 40 mg Given 05/14/2019 9:39 AM CDT 40 mg Right Lower Abdomen (LOVENOX) 40 mg, subcutaneous, Every 24 hours scheduled, First dose on Thu05/14/19 at 0900 meclizine tablet 25 mg (ANTIVERT) 25 mg, oral, 3 times daily PRN, dizzines s, vertigo, Starting on Thu05/13/19 at 2124 melatonin tablet 6 mg 6 mg, oral, Bedtime PRN, sleep, Starting on Thu 9 at 2215 methylPREDNISolone sod succinate (PF) Given 05/14/2019 9:39 AM C DT 40 mg injection 40 mg (SOLU-Medrol) 40 mg, intravenous, Every 6 hours, First dose on Thu05/13/19 at 2130, Activate vial to a final concentration of 40 mg/mL Given 05/14/2019 3:24 AM CDT 40 mg Given 05/13/2019 9:49 PM CDT 40 mg naloxone injection 0.1 mg (NARCAN) 0.1 mg, intravenous, Every 5 min PRN, reversal, respir atory depression, For respiratory rate less than 8 breaths/min and if difficult to arouse, Starting on Thu05/13/19 at 2116, For 3 doses ondansetron (PF) injection 4 mg (ZOFRAN) 4 mg, intravenous, Every 6 hours PRN, na usea, vomiting, Starting on Thu05/13/19 at 2116 polyethylene glycol powder packet 1 pack et (MIRALAX) 1 packet, oral, Daily PRN, constipation, Starting on Thu05/13/19 at 2116, Ordered sequence of administration: polyethylene glycol, then bisacodyl until BM achieved. Avoid mixing with starch-based thickened liquids. sennosides-docusate sodium 8.6-50 mg per tablet 1 tablet (SENOKOT-S) 1 tablet, oral, 2 times daily, First dos e on Thu05/14/19 at 0900, Do not give if patient has diarrhea. simethicone chewable tablet 80 mg (MYLIC ON) 80 mg, oral, 4 times daily PRN, flatulence, Starting o n Thu05/13/19 at 2154 sodium chloride 0.9 % injection 10 mL 10 mL, intravenous, As needed, line care, Starting on Thu05/13/19 at 2116, Peripheral Intravenous Catheter and Rapid Infusion Cat heter, prior to blood sampling, post blood transfusion or post blood samplin g sodium chloride 0.9 % injection 3 mL 3 mL, intravenous, As needed, line care, Starting on Thu05/13/19 at 2116, Prior to and following infusion and between multi ple consecutive infusions: sodium chloride 0.9 % injection sodium chloride 0.9 % injection 3 mL Given 05/14/2019 9:39 AM CDT 3 mL 3 mL, intravenous, Every 12 hours scheduled, First dose on Thu05/14/19 at 0900, Peripheral Intravenous Catheter and Rapid Infusion Catheter, when no infusion to maintain patency documented in this encounter Active and Recently Administered Medications Times are shown in CDT. Scheduled Medication Order 05/12/2019 05/13/2019 05/14/2019 cycloSPORINE 0.05 % ophthalmic emulsion 1 drop (RESTASIS) 2210 (Given - Provider: Kvng Rao R.N.) 0939 (Given - Provider: Corrie Saul R.N.) 1 drop, both eyes, 2 times daily, First dose on Thu05/13/19 at 2 200 enoxaparin injection 40 mg (LOVENOX) 0939 (Given - Provider: Corrie Saul R.N.) 40 mg, subcutaneous, Every 24 hours sche duled, First dose on Thu05/14/19 at 0900 methylPREDNISolone sod succinate (PF) injection 40 mg (SOLU- Medrol) 2148 (Given - Provider: Kvng Rao R.N.) 323 (Given - Provider: Kvng Rao R.N.)0939 (Given - Provider: Corrie Saul R.N.) 40 mg, intravenous, Every 6 hours, First dose on Thu05/13/19 at 2130, Activate vial to a final concentration of 40 mg/mL sennosides-docusate sodium 8.6-50 mg per tablet 1 tablet (SENOKO T-S) 0938 (Not Given - Provider: Corrie Saul R.N. - Reason: Patient/family refused) 1 tablet, oral, 2 times daily, First dos e on Thu05/14/19 at 0900, Do not give if patient has diarrhea. sodium chloride 0.9 % injection 3 mL 0939 (Given - Provider: Corrie Saul R.N.) 3 mL, intravenous, Every 12 hours schedu led, First dose on Thu05/14/19 at 0900, Peripheral Intravenous Catheter and Rapid Infusion Catheter, when no infusion to maintain patency PRN Medication Order 05/12/2019 05/13/2019 05/14/2019 albuterol nebulizer solution 2.5 mg (ACCUNEB) 2.5 mg, nebulization, Every 6 hours PRN, wheezing, shortness of breath, Starting on Thu05/13/19 at 2117 calcium carbonate chewable tablet 400 mg of calcium (TUMS) 400 mg of calcium, oral, Every 2 hour SC N, heartburn, indigestion, Starting on Thu05/13/19 at 2117, Doses listed are in mg of elemental calcium. Take with food. 500 mg calcium carbonate contains 200 mg of elemental calcium. meclizine tablet 25 mg (ANTIVERT) 25 mg, oral, 3 times daily PRN, dizzines s, vertigo, Starting on Thu05/13/19 at 2124 melatonin tablet 6 mg 6 mg, oral, Bedtime PRN, sleep, Starting on Thu05/13/19 at 2215 naloxone injection 0.1 mg (NARCAN) 0.1 mg, intravenous, Every 5 min PRN, re versal, respiratory depression, For respiratory rate less than 8 breaths/min and if difficult to arouse, Starting on Thu05/13/19 at 2116, For 3 doses ondansetron (PF) injection 4 mg (ZOFRAN) 4 mg, intravenous, Every 6 hours PRN, na usea, vomiting, Starting on Thu05/13/19 at 2116 polyethylene glycol powder packet 1 packet (MIRALAX) 1 packet, oral, Daily PRN, constipation, Starting on Thu05/13/19 at 2116, Ordered sequence of administration: polyethylene glycol, then bisacodyl until BM achieved. Avoid mixing with starch-based thickened liquids. simethicone chewable tablet 80 mg (MYLICON) 80 mg, oral, 4 times daily PRN, flatulence, Starting on 05/13 at 2153 sodium chloride 0.9 % injection 10 mL 10 mL, intravenous, As needed, line care , Starting on Thu05/13/19 at 2116, Peripheral Intravenous Catheter and Rapid Infusion Catheter, prior to blood sampling, post blood transfusion or post blood sampling sodium chloride 0.9 % injection 3 mL 3 mL, intravenous, As needed, line care, Starting on Thu05/13/19 at 2116, Prior to and following infusion and between multiple consecutive infusions: sodium chloride 0.9 % injection documented in this encounter Care Teams Gyn Relationship Specialty Start Date End Date Elsewhere, Pcp PCP - General Family Medicine 08/26/17 01/30/21 documented as of this encounter
--- OUTSIDE RECORDS SUMMARY | 2022-05-06 13:09 | XMS_ITS | Encounter Summary ---
:1935 Author Organization [facility] Address [address] [place] [address] Care Team Providers Name Role Phone Elsewhere, Pcp Primary Care Provider Unavailable Reason for Visit Physical Therapy (Routine) - Canceled Specialty Diagnoses / Procedures Referred By Contact Refer red To Contact Diagnoses Vertigo Benign Paroxysmal Positional Bilateral Con Rodriguez M.D. [facility] Procedures PT Ongoing treatment [address] [place] [phone] Referral ID Status Reason Start Date Expiration Date Visits V isits Requested Authorized [id number] Canceled 04/18/2020 04/18/2021 99 99 Encounter Details Date Type Department Care Team Description 04/18/2020 Clinical Support Department of Con Rodriguez M.D. [id number] [id number] Vertigo Benign Rehabilitation Faviola Guerrero, P.T. [address] [phone] Paroxysmal Services in [place], [place] Bilateral [address] [phone] Social History Tobacco Use Types Packs/Day Years Used Date Smoking Tobacco: Never Smokeless Tobacco: Never Alcohol Use Standard Drinks/Week Comments Not Currently 0 (1 standard drink = 0.6 oz pure alcoho l) Sex Assigned at Date Recorded Not on file documented as of this encounter Consult Notes Faviola Guerrero, P.T. - 04/18/2020 12:30 PM CDT Consults Physical Therapy Outpatient Evaluation/Treatment By co-signing this note, the provider certifies the therapy being provided to this patient is reasonable and necessary for the diagnosis or treatment of this patient. SUBJECTIVE Patient's Name: Kathryn Leon Referring Provider: Con Rodriguez M.D. Visit Diagnosis: 1. Vertigo Benign Paroxysmal Positional Bilateral Reason for Referral: PT eval and treat: BPPV and mobility assessment Onset Date: 05/12/19 Payor: MEDICARE / Plan: MEDICARE A AND B / Product Type: Medicare / Fanchimp Visit Count: 2 PERTINENT MEDICAL / SURGICAL HISTORY: Patient Active [...] Repair of cystocele Kathryn Leon is a 85 y.o. female who presents to outpatient physical therapy for evaluation. Her symptoms consist of: 1. Dizziness, spinning, and nausea Overall she reports her status is worsening . History of Present Illness: Patient awoke with symptoms of spinning, dizziness and nausea last night. Aggravating Factors: movement Relieving Factors: static positioning Previous Treatments: PT for previous episodes of vertigo with successful repositioning. Prior Level of Function: no limitation Occupational Profile Retired. Patient goals: resolve symptoms OBJECTIVE PHYSICAL EXAM Pain: no pain reported Ortho Exam Cervical range of motion within normal limits. Hallpike Jimmy testing positive for right posterior canal nystagmus with a latency of 5 seconds in duration of 10 seconds. Patient also reported symptom reproduction. TREATMENT Treatment today consisted of: Performed canalith repositioning x3 utilizing head shake with the last repetition. Home Exercise Program/Education: Patient will avoid lying on the involved side and sleep with head elevated approximately 45?? for 1 night. Contact monitoring: PPE used during therapy: Therapist was wearing the following PPE throughout entire session: surgicalmask and eye protection Patient was wearing a mask during therapy session: yes Family member/caregiver present was wearing a mask: yes Additional Staff Present During Session: no Therapist also were Face shield over surgical mask and eye protection due to risk of vomiting. Assessment Clinical Impression: Ms. Leon presents to physical therapy with signs and symptoms consistent with BPPV. Impairments: Dizziness, lightheadedness and nausea Functional Deficits: Decreased positional and activity tolerance. Rehab Potential: Ms. Leon has potential to achieve established physical therapy goals within the time frame outlined below, provided she actively participates in her physical therapy treatment plan and home program. Functional Goals and Timeframes: PT Goal #1: Patient will have symptom resolution in 1 week. PT Goal #1 Date: 04/27/20 PT Goal #2: Patient will transfer from supine to/from sit without symptom reproduction in 1 week. PT Goal #2 Date: 04/27/20 Plan Ms. Leon was educated regarding evaluative [...] Treatment Plan: Start of Plan of Care: 04/18/2020 Number of Visits: 1 visit PT Duration: 1 visit PT Frequency: 1 visit Treatment interventions may include: Patient education and canalith repositioning Plan: Patient will contact therapist if symptoms do not resolve in 1 treatment session. Patient has all contact information for therapist. Time Spent with Patient PT Evaluation (min): 16 min Time Calculation Total Treatment Time (min): 16 min Faviola Guerrero P.T. Department of Rehabilitation Services in [address] [phone] Dept: [phone] documented in this encounter Plan of Treatment Not on filedocumented as of this encounter Visit Diagnoses Diagnosis Vertigo Benign Paroxysmal Positional Jeff ateral documented in this encounter Care Teams Video Camera Operator Relationship Specialty Start Date End Date Elsewhere, Pcp PCP - General Family Medicine 08/26/17 01/30/21 documented as of this encounter
--- OUTSIDE RECORDS SUMMARY | 2022-05-06 13:09 | XMS_ITS | Encounter Summary ---
:1935 Author Organization [facility] Address [address] [place] [address] Care Team Providers Name Role Phone Elsewhere, Pcp Primary Care Provider Unavailable Encounter Details Date Type Department Care Team Description 08/11/2018 Orders Only Department of Family Kerri Mai AP RN, Medicine, [place] C.N.P., D .N.P. [facility], in [address] [phone] [place] [address] [place], [place] [address] [phone] Social History Tobacco Use Types Packs/Day Years Used Date Smoking Tobacco: Never Sex Assigned at Date Recorded Not on file documented as of this encounter Plan of Treatment Not on filedocumented as of this encounter Visit Diagnoses Not on filedocumented in this encounter Care Teams Hospitalist Medical Director Relationship Specialty Start Date End Date Elsewhere, Pcp PCP - General Family Medicine 08/26/17 01/30/21 documented as of this encounter
--- OUTSIDE RECORDS SUMMARY | 2022-05-06 13:09 | XMS_ITS | Encounter Summary ---
:1935 Author Organization [facility] Address [address] [place] [address] Care Team Providers Name Role Phone Elsewhere, Pcp Primary Care Provider Unavailable Encounter Details Date Type Department Care Team Description 06/27/2019 Hospital Encounter Department of Antonia Aldrich [facility] [address] [address] [place], [place] [phone] (Work) [phone] Social History Tobacco Use Types Packs/Day Years [...] Priority Date/Time Associated Comments Diagnosis BI BREAST RAD - Routine 06/27/2019 9:58 Screening Results for this SCREENING (most inpatients AM CDT Mammogram Breast procedu re are in BILATERAL and all Cancer the results outpatients) section. documented in this encounter Results BI Breast Screening Bilateral (06/27/2019 9:58 AM CDT) Anatomical Region Laterality Modality Breast, Breast Imaging RST LOS, Breast Imaging ARZ LOS, [address] Bilateral Mammography Imaging FLA LOS Specimen (Source) Anatomical Collection Method Collection Time Re ceived Time Location / / Volume Laterality 06/27/2019 10:07 AM CDT Impressions 06/27/2019 10:08 AM CDT Negative. RECOMMENDATION: ??Annual Screening Mammo gram ASSESSMENT: ??BI-RADS: 1: Negative. Narrative 06/27/2019 10:08 AM CDT EXAM: ??BI BREAST SCREENING BILATERAL Current study was evaluated with a Compu ter Aided Detection (CAD) system. INDICATION: ??Screening mammogram. COMPARISON: ??Prior exam(s) were availab le and reviewed for comparison. DENSITY: ??c. The breast(s) are heteroge neously dense, which may obscure small masses. FINDINGS: ??No mammographic findings of malignancy. Procedure Note Mando Malin M.D. - 06/27/2019Forma tting of this note might be different from the original. EXAM: BI BREAST SCREENING BILATERAL Current study was evaluated with a Compu ter Aided Detection (CAD) system. INDICATION: Screening mammogram. COMPARISON: Prior exam(s) were available and reviewed for comparison. DENSITY: c. The breast(s) are heterogene ously dense, which may obscure small masses. FINDINGS: No mammographic findings of ma lignancy. IMPRESSION: Negative. RECOMMENDATION: Annual Screening Mammogr am ASSESSMENT: BI-RADS: 1: Negative. Antonia Aldrich C.N.P. [facility] BI PROCEDURES documented in this encounter Visit Diagnoses Diagnosis Screening Mammogram Breast Cancer documented in this encounter Care Teams Cane Flume Chute Operator Relationship Specialty Start Date End Date Elsewhere, Pcp PCP - General Family Medicine 08/26/17 01/30/21 documented as of this encounter
--- OUTSIDE RECORDS SUMMARY | 2022-05-06 13:09 | XMS_ITS | Encounter Summary ---
:1935 Author Organization [facility] Address [address] [place] [id number] Care Team Providers Name Role Phone Elsewhere, Pcp Primary Care Provider Unavailable Reason for Referral Outpatient (Routine) - Closed Specialty Diagnoses / Procedures Referred By Contact Refer red To Contact Diagnoses VerRio Funes M.D. [facility] Procedures Vestibular balance evaluation [address] [place] [phone] Referral ID Status Reason Start Date Expiration Date Visits Requ ested Visits Authorized [id number] Closed 01/30/2021 01/30/2022 1 1 Outpatient (Routine) - Closed Specialty Diagnoses / Procedures Referred By Contact Refer red To Contact Neurology Diagnoses Rio Gale M.D. [address] [phone] Referral ID Status Reason Start Date Expiration Date Visits V isits Requested Authorized [id number] Closed Specialty 01/30/2021 01/30/2022 1 1 Services Required Encounter Details Date Type Department Care Team Description 01/30/2021 - Hospital Encounter [facility] Agnieszka Cole M.D., M.S. [address] [place] [phone] Vertigo (Primary Dx); 01/31/2021 [facility], Blake Espinoza M.D. [address] [place] [phone] Vertigo Benign Paroxysmal Positional [facility], [facility], Second floor [address] [place] [address] Social History Tobacco Use Types Packs/Day Years Used Date Smoking Tobacco: Never Smokeless Tobacco: Never Alcohol Use Standard Drinks/Week Comments Not Currently 0 (1 standard drink = 0.6 oz pure alcoho l) Sex Assigned at Date Recorded Not on file documented as of this encounter Last Filed Vital Signs Vital Sign Reading Time Taken Comments Blood Pressure 147/57 01/31/2021 6:35 AM CDT Pulse 70 01/31/2021 6:35 AM CDT Temperature 36.6 ??C (97.9 ??F) 01/31/2021 6:35 AM CDT Respiratory Rate 16 01/31/2021 6:35 AM CDT Oxygen Saturation 100% 01/31/2021 6:35 AM CDT Inhaled Oxygen Concentration - - Weight 71.8 kg (158 lb 4.6 oz) 01/30/2021 12:35 AM CDT Height 157.5 cm (5' 2) 01/30/2021 12:35 AM CDT Body Mass Index 28.95 01/30/2021 12:35 AM CDT documented in this encounter Discharge Summaries Ariana Cohen M.D. - 01/31/2021 1:22 PM CDT DISCHARGE SUMMARY BRIEF OVERVIEW Hospital: [facility] Discharge Provider: Blake Delacruz M.D. Primary Team: [facility] Medicine 3 ([facility]) Primary Care Providers: Elsewhere, Pcp (General) No address on file Primary Care Provider Phone Number: None Primary Care Provider Fax Number: None Other Providers: None Admission Date: 01/30/2021 Discharge Date: 01/31/2021 PRINCIPAL DIAGNOSIS Vertigo SECONDARY DIAGNOSES Principal Problem: Vertigo Resolved Problems: * No resolved hospital problems. * DISCHARGE DISPOSITION Home or Self Care [1] ACTIVE ISSUES REQUIRING FOLLOW UP Follow up: - Follow up with PCP for repeat MRI in 6-8 weeks - Follow up in vestibular clinic and with neurology, they will call you to arrange these appointments For PCP: - MRI was done which showed: a??small focus diffusion signal change with associated gadolinium enhancement located within the the subcortical white matter of the inferior left parietal lobe. Differential considerations include a small subacute infarct versus a small metastasis.??This is unlikely the cause of her symptoms but does need to be repeated in 6-8 weeks to monitor for evolution of this lesion. OUTPATIENT FOLLOW UP For appointment details refer to your Patient Appointment Guide. TEST RESULTS PENDING AT DISCHARGE Pending Labs None DETAILS OF HOSPITAL STAY REASON FOR ADMISSION Vertigo HOSPITAL COURSE Ms. Kathryn Leon is a 85 y.o. female with past medical history of recurrent severe vertigorequiring prior hospitalizations (most recently in 2019) who presented with vertigo. ?? She was in her normal state of health on the evening of admission when she suddenly became very dizzy and nauseated while she was sitting talking on the phone around 8 pm. She described the dizziness as feeling as if the room is spinning.There was no clear movement of her head at the onset of symptoms. She decided to go lay down in bed but was too dizzy to stand up. Dizziness persisted and she decided to present to an outside ED. ?? In the ED, she was hemodynamically stable and maintaining good oxygen saturations on room air. Physical exam was significant for lateral nystagmus and a positive Waleska-Hallpike test. Basic labs were obtained and were unremarkable. She was treated with meclizine, ondansetron, and IV fluids without resolution of her symptoms. She was transferred to [facility] for further evaluation and management. ?? On admission, symptoms were still present and she describes the dizziness as severe. Symptoms were constant and were not related to head movement. This episode was similar to prior episodes. She deniedrecent illness, fever, chills, tinnitus, headache, visual changes, weakness, numbness, tingling, or any other complaints. 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 She has had a previous workup for similar symptoms but has never seen ENT. She has these episodes 3-4 times per year. Brain MRI in 2014 was negative for stroke. The etiology of her symptoms remains unclear. It is reassuring that she has similar episodes severaltimes per year that resolve spontaneously. Her physical exam was reassuring for a peripheral cause of vertigo. While these episodes have seemingly responded to the Felipe maneuver in the past, the history does not seem to be consistent with BPPV given the abrupt onset without head movement and continuous nature of the symptoms. The frequency of episodes also argues against BPPV. Other causes of recurrent vertigo should be considered including Meniere's disease (though less likely given lack of additional symptoms), perilymph fistula, migraines, and vertebrobasilar insufficiency. ?? MRI was done and showed a small focus diffusion signal change with associated gadolinium enhancementlocated within the the subcortical white matter of the inferior left parietal lobe. Differential considerations include a small subacute infarct versus a small metastasis. This is unlikely the cause ofher symptoms but does need to be followed up in 6-8 weeks. Vertigo completely resolved completely after 24 hours. She did have some residual weakness, which she states is typical after these episodes. Outpatient vestibular clinic and neurology follow up will be arranged for further evaluation of recurrent vertigo. She was discharged in stable condition on 01/31. CONSULTS ORDERED DURING THIS ADMISSION None CONDITION AT DISCHARGE stable Discharge instructions were provided to the patient and caregiver(s). documented in this encounter Discharge Instructions Discharge InstructionsBrandee Guthrie - 01/30/2021 6:49 AM CDT You were discharged from the [facility] Medicine 3 ([facility]) Service. Please identify this service name if you call with questions after hospitalization. [facility] experts agree: You should get a COVID-19 vaccine as soon as it's available to you. ??? The vaccines that we???re recommending have been approved for safe use. ??? [facility] will continue to coordinate with state and local governments on future vaccine distribution phases. o If your primary care provider is at [facility] and you plan to receive your vaccination at [facility], please ensure that you have activated your Patient Portal at [email or web address] to allow [facility] to communicate to you about the scheduling process. ??? Practice social distancing, wear a mask properly outside your home, wash your hands frequently, and follow your state and local recommendations until the spread has stopped. ??? The vaccine may not be recommended to those with certain health conditions. Talk to your health care provider if you have questions about receiving the vaccine. Discharge Instr - ActivityVEfrain vásquez P.T. - 01/31/2021 12:44 PM CDT Physical Therapy Discharge Summary MOBILITY RESTRICTIONS/PRECAUTIONS: Other: intermittent dizziness. WEIGHT BEARING STATUS: No restrictions CURRENT FUNCTIONAL STATUS: Patient is currently walking well with use of front wheeled walker with improved balance and steadiness. No signs of benign paroxysmal positional vertigo issues even again today with testing. See my hospital note for full evaluation. Patient to have outpatient follow up withENT and follow up MRI as noted by physicians. RECOMMENDATIONS: No further PT recommended at this time. If the patient develops loss of function a physical therapy evaluation may be warranted. Patient to use her front wheeled walker at home for her mobility until she feels that her dizziness is completely resolved. No current PT follow up. Discharge information provided on 01/31/2021 by Efrain Hendrix P.T. Contact information: [facility], [address], AttachmentsThe following attachments cannot be sent through Care Everywhere. Meclizine (By mouth) (Frisian)documented in this encounter Medications at Time of [...] 0 05/20/[address] capsule daily. meclizine (ANTIVERT) Take 25 mg by mouth as 0 25 mg tablet needed. alendronate (FOSAMAX) TAKE 1 TABLET EVERY 7 12 tablet 3 02/19/2021 70 mg tablet DAYS (WEEKLY) ON AN EMPTY STOMACH, REMAIN UPRIGHT FOR AT LEAST 30 MINUTES meclizine (ANTIVERT) Take 1 tablet (25 mg 30 tablet 0 01/3102/10/2021 25 mg tablet total) by mouth 3 (three) times a day as needed for dizziness for up to 10 days. EPINEPHrine (EPIPEN Inject 0.3 mg 0 04/10/2017 2-KRISTIN) 0.3 mg/0.3 mL intramuscularly as injection syringe needed for anaphylaxis. ondansetron ODT Take 4 mg by mouth 0 05/14/2019 0 03/26/2021 (ZOFRAN-ODT) 4 mg daily as needed disintegrating tablet (vertigo). documented as of this encounter Progress Notes Tabitha Conte M.S., O.T. - 01/31/2021 1:30 PM CDT Occupational Therapy Acute Hospital Inpatient Progress Note SUBJECTIVE Patient's Name: Kathryn Lu Carolyn Reason for Referral: OT eval and treat: functional safety and independence following onselt of BPPV Medical Diagnosis: 1. Vertigo 2. Vertigo Benign Paroxysmal Positional Bilateral History of Present Illness: patient has had issues with vertigo in the past. See history for currentsymptoms as outlined. Onset Date: 01/29/21 Patient/Caregiver Goals: Decreased vertigo, return home Precautions Other Precautions: vertigo, fall risk Fall Risk (65 and older) Fall in the last 12 months: No Are you fearful of falling?: No OBJECTIVE Pain: none Vitals:Not indicated at this time Grooming Grooming Location: Standing at sink Grooming Delivery: Assessed Grooming Level of Assistance: supervision Grooming Comments: Patient completes oral cares and washes face , tolerating 4 minutes of static standing. Patient is able to unweight UEs while engaged in bimanual task . LE Dressing LE Dressing Location: Supported sitting in bed LE Dressing Delivery: Assessed LE Dressing Adaptive Equipment: LE Dressing Items Included: Socks LE Dressing Level of Assistance: Independent, Modified independent LE Dressing Comments: Patient able to demonstrate figure 4 to doff/don socks and under mary. Therapist also educates on use of production bow maker should figure 4 technique become difficult . Patient verbalizes understanding. ?? Toileting Toileting Location: Toilet Toileting Delivery: Assessed Toileting Adaptive Equipment: Grab bars Toileting Level of Assistance: Modified independent Toileting Comments: Patient voids while seated . No physical assist needed form therapist ? Toilet Transfers # of Assistants: 1 Transfer Surface: Toilet Transfer Approach: To and from Transfer Equipment: Grab bars, Level of Assistance: supervision Assessment/Delivery: Assessed, Therapist assisted Toilet Transfers Comments: Patient demonstrating good descending and ascending control when transferring. Patient utilizes horizontal grab bars to assist with transfer stability. ? At the end of today's therapy session patient was left seated in bedside chair with an appropriate call light within reach. Patient's needs and questions addressed during today's session. Contact monitoring: PPE used during therapy: Therapist was wearing the following PPE throughout entire session: surgicalmask Assessment Patient reporting symptoms have improved significantly. She still is experiencing some dizziness with quick head movements however patient states she is close to her baseline. Therapist assess functional mobility , safety and independence with basic self cares today. Patient ambulating with front wheeled walker, demonstrating ability to complete all functional transfers and basic self cares with supervision to modified independence. Patient has no further questions pertaining to adaptive equipment RECs at this time and feels comfortable to discharge home with support from family as needed. Barriers to Discharge Home: Fall risk Personal Factors: Age Discharge Therapy Needs - OT: Other (Comment) (ongoing) Functional Goals and Timeframe's: OT Goal #1: Patient will demonstrate the ability to complete all aspects of toileting : transfers, clothing management and hygiene with supervision prior to dismissal: goal met OT Goal #2: Patient will complete TB dressing with supervision prior to dismissal OT Goal #3: Patient will demonstrate ability to stand sinkside and compelte all grooming self cares with supervision prior to d/c: goal met OT Goal #4: Patient will verbalize understanding of all home going recommendations including use of adaptive equipment and implementation of home exercise program prior to d/c: goal met Plan Patient agrees with the plan of care and goals. Treatment Plan: OT Frequency: 5 times per week OT Amount: 1 visit per day Treatment interventions may include: Treatment Interventions: Therapeutic functional activity, Self-care/home management Time Spent with Patient Home Management Training (min): 20 min Time Calculation Total Timed Units (min): 20 min Total Treatment Time (min): 20 min Yanet Conte M.S., O.T. Blake Delacruz M.D. - 01/31/2021 12:38 PM CDT SUPERVISORY NOTE MEDICINE 3 Patient seen and evaluated. I have reviewed, confirmed and agree with the documentation and plan of the Medicine 3 team as noted on 01/31/2021. I have discussed the plan of care with the medical team. # Vertigo # Osteopenia # Asthma # GERD No major events overnight. Vertigo has significantly improved. She continues to feel weak which typically occurs after an episode. Patient will continue with work with PT/OT today and consider going home later. MRI of the head with small focus of diffusion signal change within the subcortical white matter of the inferior left parietal lobe. Recommend a follow- up MRI in 6-8 week for re-evaluation. Outpatient evaluation in the Vestibular Clinic recommended for her bouts of vertigo. Efrain Hendrix, P.T. - 01/31/2021 11:50 AM CDT Physical Therapy Acute Hospital Inpatient Treatment SUBJECTIVE Patient's Name: Kathryn Leon Reason for Referral: PT eval and treat: BPPV and mobility assessment Medical Diagnosis: 1. Vertigo 2. Vertigo Benign Paroxysmal Positional Bilateral History of Present Illness: patient has had issues with vertigo in the past. See history for currentsymptoms as outlined. Onset Date: 01/29/21 Patient Comments: patient up at bedside chair and feeling much better overall as compared to yesterday wiht her dizziness. Precautions Other Precautions: vertigo, fall risk OBJECTIVE Pain: Vitals: blood pressure was 145/70 Sit to Stand Transfers Transfer Equipment: Gait belt, Front wheeled walker Level of Assistance: Independent Comments: feeling much better overall and is steady currently. Stand to Sit Transfers Transfer Surface: Bed Transfer Equipment: Front wheeled walker Level of Assistance: Independent Bed, Chair, Wheelchair Transfers Transfer Surface: Bed Transfer Equipment: Front wheeled walker Level of Assistance: Independent Gait Assessment/Training Distance (m): 50 m Surface: Even Device: Front-wheeled walker # of Assistants: 1 Level of Assistance: Independent Quality/Pattern: Guarding Assessment of Gait: improved pace and stable gait. no complaints of dizziness. Training/Intervention: Pt was educated she should use her walker at home until she feels stronger. If she continues to feel weak with ambulation, . Stairs/Curb # Stairs: 12 Rails: 1 Device: No device Level of Assistance: Modified Independent Stair Navigation Pattern-Ascending: Reciprocal pattern Stair Navigation Pattern-Descending: Reciprocal pattern Retested for benign paroxysmal positional vertigo with Jimmy-Hallpike and roll test with negative nystagmus or complaints of dizziness. Patient/Family Training: Patient instructed on use of front wheeled walker for current balance untilshe feels that her her dizziness has fully resolved. She feels like her hearing is better after pressurizing her ears. Discussed with her that she could purchase a device called Eustachii that helps tobalance pressure in ears. Discussed maintaining adequate hydration. At the end of today's therapy session patient was left seated in bedside chair with an appropriate call light within reach. Patient's needs and questions addressed during today's session. Contact monitoring: PPE used during therapy: Therapist was wearing the following PPE throughout entire session: surgicalmask Assessment Patient feeling much better overall and is mobilizing independently with use of front wheeled walker. She has her own front wheeled walker for homegoing. Retested for benign paroxysmal positional vertigo with Waleska-Hallpike and roll test with negative nystagmus or complaints of dizziness. Barriers to a safe discharge home: none, patient is functionally safe to discharge home when medically stable. Recommend: Barriers to Discharge Home: Fall risk Personal Factors: Age Discharge Therapy Needs - PT: No further therapy recommended Level of Care Recommended - PT: Other (Comment) (intermittent assist as needed if having dizziness.) Equipment Recommended - PT: Front-wheeled walker Equipment Vendor - PT: has own front wheeled walker in home. Functional Goals and Timeframes: PT Goal #1: Reduced dizziness to allow independent mobility and gait with gait aid. PT Goal #1 Status: Achieved Progress: Slow progress, limited activity tolerance, All PT goals achieved Plan Patient agrees with the plan of care and goals. Treatment Plan: PT Frequency: 5 times per week PT Amount: 1 visit per day PT Inpatient Duration : Until goals are met or hospital discharge Plan: Discontinue PT PT Plan Comments: see for dizziness and progressive mobility Treatment interventions may include: Treatment/Interventions: Therapeutic exercise, Therapeutic functional activity, Gait training Time Spent with Patient Therapeutic Activity (min): 30 min Total Timed Units (min): 30 min Total Treatment Time (min): 30 min Efrain Hendrix P.T. Ariana Cohen M.D. - 01/31/2021 6:48 AM CDT T Medicine 3 ([facility]) PROGRESS NOTE SUBJECTIVE No acute events overnight. Vertigo has completely resolved but she continues to feel weak. She states that this typically occurs after episodes of vertigo. She would like to work with PT today and thenconsider going home if she is strong enough to transfer on her own. I have reviewed the current medication list. OBJECTIVE VITAL SIGNS Temperature: [36.3 ??C-36.6 ??C] 36.6 ??C Heart Rate: [73] 73 Resp Rate: [16-20] 16 Blood Pressure: (146-159)/(53-81) 147/57 SpO2: [94 %-100 %] 100 % Pulse Rate: [69-79] 70 PHYSICAL EXAM General: Alert, interactive. ENT: Hearing grossly intact. Left sided ptosis, stable. Lungs: Clear to auscultation. No wheezes or crackles. Heart: Regular rate and rhythm. No murmurs appreciated. No lower extremity edema. Abdomen: Soft, flat, bowel sounds normoactive, nontender, nondistended, no palpable masses or organomegaly. Neuro: Strength 5/5 in all extremities. Nystagmus has resolved. Mental: Mood and affect congruent. Alert and oriented. Attention intact. No evidence of disorganizedthinking. 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 DIAGNOSTICS I have personally reviewed the laboratory data and imaging since admission, and in/outs for past 72 hours. ASSESSMENT / PLAN Ms. Leon is hospitalized on [place] [id number] ([facility]) for evaluation and management of an acute episode of vertigo in the setting of recurrent vertigo. ?? The etiology of her symptoms remains unclear. It is reassuring that she has similar episodes severaltimes per year that resolve. While these episodes have seemingly responded to the Felipe maneuver in the past, the history does not seem to be consistent with BPPV given the abrupt onset without head movement and continuous nature of the symptoms. The frequency of episodes also argues against BPPV. Other causes of recurrent vertigo should be considered including Meniere's disease (though less likely given lack of additional symptoms), perilymph fistula, migraines, and vertebrobasilar insufficiency. Her physical exam is reassuring for a peripheral cause of vertigo. Symptoms have completely resolved but she still feels weak. We will have PT work with her this morning and reevaluate a safe discharge plan. She will likely discharge home later today. Outpatient vestibular clinic and neurology follow up will be arranged. ?? MRI was done yesterday and showed a Small focus diffusion signal change with associated gadolinium enhancement located within the the subcortical white matter of the inferior left parietal lobe. Differential considerations include a small subacute infarct versus a small metastasis. This is unlikely the cause of her symptoms but does need to be followed up in 6-8 weeks. #1 Vertigo - Ondansetron PO [id number] PRN for nausea and vomiting - Meclizine 25 mg TID PRN for dizziness - PT evaluate and treat - Outpatient vestibular clinic follow up for recommendations for further diagnostic evaluation ?? # Osteopenia # Asthma # Gastroesophageal reflux disease - Continue home calcium - Continue home albuterol nebulizer as needed - Continue home pantoprazole ?? Diet: general diet Tubes/lines: PIV VTE prophylaxis: heparin Code status: Prior Disposition: Home ?? Mckenna Cohen MD Internal Medicine, PGY-1 documented in this encounter H&P Notes Blake Delacruz M.D. - 01/30/2021 1:27 PM CDT SUPERVISORY NOTE MEDICINE 3 Patient seen and evaluated. I have reviewed, confirmed and agree with the documentation and plan of the Medicine 3 team as noted on 01/30/2021. I have discussed the plan of care with the medical team. # Vertigo # Osteopenia # Asthma # GERD 85-year-old female with the history of recurrent vertigo possibly thought to be related to BPPV seenin the ED for sudden onset of vertiginous symptoms necessitating admission to the hospital for further management of symptoms. For several years, patient has a experience recurrent, intermittent episodes of vertigo lasting couple days without any identifiable triggers. Last brain imaging was in 2014 with the MRI being unremarkable. Patient notes that she was on the phone at approximately 8 o'clock in the evening, sitting when she had an abrupt onset of vertigo. She was experiencing dry, retching symptoms and was unable to ambulate and was brought to the ED by her . No reports of any localized symptoms. She has been layingflat with minimal head movement to minimize symptoms. This morning, patient was quite concerned about provoking additional vertigo with movement. PT/OT been asked to see the patient. Symptom management will be pursued with medical therapy. Consideration for MRI of the head as she continues to experience intermittent, significant bouts of vertigoto rule out for any intracranial pathology. May be reasonable to ask our colleagues in Neurology for any additional input. Ultimately, patient may benefit from Vestibular Clinic evaluation as an outpatient. Malik Ziegler M.D. - 01/30/2021 12:10 AM CDT MEDICINE 3 SUPERVISORY ADMISSION NOTE SUBJECTIVE CHIEF COMPLAINT Ms. Kathryn Leon is a 85 y.o. female who presents with vertigo. HISTORY OF PRESENT ILLNESS Ms. Loen is an 85 y/o F with a medical history including the followin. 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 Osteoporosis For several years she has had recurrent episodic vertigo usually lasting a couple of days with progressive onset over a matter of hours. In general, she does have improvement with the Felipe maneuver though she states relief usually takes place in a matter of several hours. She has even been hospitalized for this in the past including recently in 2019 when she was hospitalized for a period of four days. During that hospitalization she received IV solumedrol (though final diagnosis given was BPPV) andreceived vestibular rehab. She does receive vestibular rehab on a regular basis for these episodes. She has had brain imaging in the past with MRI in 2014 which was unremarkable. Today, she presents today after an acute episode of vertigo that occurred when talking on the phone at around 8 PM while sitting. She states initially she would rate the vertigo at 10/10 in severity. She began having some dry retching as well. Due to the severity of the symptoms and inability to walk because of the vertigo her and her decided to go to the ER. She states her symptoms worsen when trying to move head or laying flat. Nothing seems to make symptoms better. She is unable to walk due to her symptoms. Right now when laying flat she states the vertigo has improved to a 5/10 from initial peak of 10/10.She is not having any more retching at this time. She denies any dysarthria, facial droop, visual acuity changes, acute hearing changes, focal weakness/numbness. No recent illness, URI symptoms. She does not have history of migraines. No recent trauma. No tinnitus or ear fullness. I have reviewed and updated the following: No past medical history on file. Past [...] disease Brother ??? Breast cancer Mother's Sister 70's ??? Breast cancer Mother's Sister 70's ??? Breast cancer Mother's Sister 70's Social History Socioeconomic History ??? Marital status: Spouse name: Not on file ??? Number of children: Not on file ??? Years of education: Not on file ??? Highest education level: Not on file Occupational History ??? Not on file Tobacco Use ??? Smoking status: Never Smoker ??? Smokeless tobacco: Never Used Substance and Sexual Activity ??? Alcohol use: Not Currently ??? Drug use: Defer ??? Sexual activity: Yes Other Topics Concern ??? Not on file Social History Narrative ??? Not on file Social Determinants of Health Financial Resource Strain: ??? Difficulty of Paying Living Expenses: Food Insecurity: ??? Worried About Running Out of Food in the Last Year: ??? Ran Out of Food in the Last Year: Transportation Needs: ??? Lack of Transportation (Medical): ??? Lack of Transportation (Non-Medical): Physical Activity: ??? Days of Exercise per Week: ??? Minutes of Exercise per Session: Stress: ??? Feeling of Stress : Social Connections: ??? Frequency of Communication with Friends and Family: ??? Frequency of Social Gatherings with Friends and Family: ??? Attends Evangelical Services: ??? Active Member of Clubs or Organizations: ??? Attends Club or Organization Meetings: ??? Marital Status: Intimate Partner Violence: ??? Fear of Current or Ex-Partner: ??? Emotionally Abused: ??? Physically Abused: ??? Sexually Abused: Allergies Allergen Reactions ??? Gluten Other (see comments) cerner listed no reaction ??? Influenza Virus Vaccines Other (see comments) ??? Miconazole Other (see comments) MICONAZOLE NITRATE ??? Nut - Unspecified Other (see comments) cerner listed no reaction ??? Peanut Hives and Anaphylaxis Active Home Medications Medication Sig Taking albuterol (ACCUNEB) 2.5 mg /3 mL nebulizer solution as needed. alendronate (FOSAMAX) 70 mg tablet TAKE 1 TABLET EVERY 7 DAYS (WEEKLY) ON AN EMPTY STOMACH, REMAIN UPRIGHT FOR AT LEAST 30 MINUTES CALCIUM CITRATE ORAL Take 1 tablet by mouth 2 (two) times a day. CYANOCOBALAMIN, VITAMIN B-12, ORAL Take 1,000 mcg by mouth daily. EPINEPHrine (EPIPEN 2-KRISTIN) 0.3 mg/0.3 mL injection syringe Inject 0.3 mg intramuscularly as needed for anaphylaxis. ferrous sulfate 325 mg (65 mg iron) tablet Take 1 tablet by mouth daily. fluticasone propionate (FLONASE) 50 mcg/actuation nasal spray Administer 2 sprays into each nostril daily as needed for rhinitis or allergies. melatonin 3 mg tablet Take 2 tablets (6 mg total) by mouth at bedtime as needed for sleep. Patient not taking: Reported on 07/14/2019 MULTIVITAMIN ORAL Take 1 tablet by mouth daily. nystatin (MYCOSTATIN) 100,000 unit/mL suspension as needed. omeprazole (PriLOSEC) [address] capsule Take 1 capsule by mouth daily. ondansetron ODT (ZOFRAN-ODT) 4 mg disintegrating tablet as needed. REVIEW OF SYSTEMS Pertinent items are noted in HPI; all other review of systems was negative. OBJECTIVE VITAL SIGNS Temperature: [36.2 ??C-36.5 ??C] 36.5 ??C Heart Rate: [66-81] 80 Resp Rate: [6-23] 15 Blood Pressure: (145-170)/(70-78) 159/75 SpO2: [92 %-99 %] 98 % Height: [157.5 cm] 157.5 cm Weight: [75.6 kg] 75.6 kg BSA (Calculated - sq m): [1.82 sq meters] 1.82 sq meters BMI (Calculated): [30.5 kg/m??] 30.5 kg/m?? Pulse Rate: [66-81] 78 PHYSICAL EXAM General: not in acute distress, laying in bed comfortably HEENT: no conjunctival injection or scleral icterus HINTS exam: she has what appears to be unidirectional nystagmus with a torsional component with fastbeats to the right. This is most prominent when she looks to the right. When looking to the left shedoes not have significant nystagmus. Cover uncover test and head impulse testing does not appear to be grossly abnormal though it is difficult to fully evaluate due to the nystagmus when doing these tests. Neurological: Alert and oriented. CN 2-12 intact. Strength in upper and lower extremities bilaterally is 5/5. Sensation is intact in upper and lower extremities bilaterally. Unable to walk due to imbalance. Lungs: Breathing comfortably on room air Psychiatric: normal mood and affect, speech is normal and behavior is normal ASSESSMENT / PLAN #1 Repetitive Episodes of Vertigo Mrs. Leon is an 85 y/o F presenting with another episode of vertigo this time with more sudden onset than usual while talking on the phone earlier today. Her symptoms do appear to be improving over time. She carries a history of BPPV though her episodes tend to be persistent, worse with any movement, and last usually a couple of days before complete resolution which would be atypical for this diagnosis. She does not have any other neurologic symptoms or bidirectional nystagmus that would be worrisome for posterior stroke and has had a negative MRI in the past for evaluation of this episodic vertigo. Other possibilities include Meniere's disease (though no tinnitus/ear fullness - does report some perceived gradual hearing loss R>L) or migraine (though no headache, visual aura, or other neurologic symptoms). For symptomatic management, she reports no medications help but that vestibular rehab does. She reports that the Felipe maneuver does seem to help though interestingly takes several hours for the effectto take place. We discussed the case with ENT who recommended outpatient referral. Plan - PT vestibular rehab inpatient - ENT outpatient follow up - Meclizine offered PRN but states medications do not typically help Ariana Tejeda M.D. - 01/30/2021 12:07 AM CDT [facility] ([facility]) Admission Note SUBJECTIVE CHIEF COMPLAINT Dizziness HISTORY OF PRESENT ILLNESS Ms. Kathryn Leon is a 85 y.o. 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 She was in her normal state of health earlier this evening when she suddenly became very dizzy and nauseated while she was sitting talking on the phone around 8 pm. She describes the dizziness as feeling as if the room is spinning.There was no clear movement of her head at the onset of symptoms. She decided to go lay down in bed but was too dizzy to stand up. Dizziness persisted and she decided to present to an outside ED. In the ED, she was hemodynamically stable and maintaining good oxygen saturations on room air. Physical exam was significant for lateral nystagmus and a positive Waleska-Hallpike test. Basic labs were obtained and were unremarkable. She was treated with meclizine, ondansetron, and IV fluids without resolution of her symptoms. She was transferred to [facility] for further evaluation and management. On admission, symptoms are still present and she describes the dizziness as severe. Symptoms have been constant and are not related to head movement. She states that this episode is similar to prior episodes. She denies recent illness, fever, chills, tinnitus, headache, visual changes, weakness, numbness, tingling, or any other complaints. 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 She has had a previous workup for similar symptoms but has never seen ENT. She has these episodes 3-4 times per year and they consistently respond to the Felipe maneuver. Brain MRI in 2014 was negative for stroke. I have reviewed and updated the following: Past Medical History, Family History, Social History, andAllergies. Active Home Medications Medication Sig Taking albuterol (ACCUNEB) 2.5 mg /3 mL nebulizer solution as needed. alendronate (FOSAMAX) 70 mg tablet TAKE 1 TABLET EVERY 7 DAYS (WEEKLY) ON AN EMPTY STOMACH, REMAIN UPRIGHT FOR AT LEAST 30 MINUTES CALCIUM CITRATE ORAL Take 1 tablet by mouth 2 (two) times a day. CYANOCOBALAMIN, VITAMIN B-12, ORAL Take 1,000 mcg by mouth daily. EPINEPHrine (EPIPEN 2-KRISTIN) 0.3 mg/0.3 mL injection syringe Inject 0.3 mg intramuscularly as needed for anaphylaxis. ferrous sulfate 325 mg (65 mg iron) tablet Take 1 tablet by mouth daily. fluticasone propionate (FLONASE) 50 mcg/actuation nasal spray Administer 2 sprays into each nostril daily as needed for rhinitis or allergies. melatonin 3 mg tablet Take 2 tablets (6 mg total) by mouth at bedtime as needed for sleep. Patient not taking: Reported on 07/14/2019 MULTIVITAMIN ORAL Take 1 tablet by mouth daily. nystatin (MYCOSTATIN) 100,000 unit/mL suspension as needed. omeprazole (PriLOSEC) [address] capsule Take 1 capsule by mouth daily. ondansetron ODT (ZOFRAN-ODT) 4 mg disintegrating tablet as needed. REVIEW OF SYSTEMS Pertinent items are noted in HPI; all other review of systems was negative. OBJECTIVE VITAL SIGNS Temperature: [36.2 ??C-36.5 ??C] 36.5 ??C Heart Rate: [66-81] 80 Resp Rate: [6-23] 15 Blood Pressure: (145-170)/(70-78) 159/75 SpO2: [92 %-99 %] 98 % Height: [157.5 cm] 157.5 cm Weight: [75.6 kg] 75.6 kg BSA (Calculated - sq m): [1.82 sq meters] 1.82 sq meters BMI (Calculated): [30.5 kg/m??] 30.5 kg/m?? Pulse Rate: [66-81] 78 PHYSICAL EXAM General: Alert, interactive. Appears uncomfortable. Eyes: Pupils equal and round. Ptosis of the left eyelid. ENT: Hearing grossly intact. Lungs: Clear to auscultation. No wheezes or crackles. Heart: Regular rate and rhythm. No murmurs appreciated. No lower extremity edema. Abdomen: Soft, flat, bowel sounds normoactive, nontender, nondistended, no palpable masses or organomegaly. Neuro: Strength 5/5 in all extremities. Abnormal finger to nose testing bilaterally. Gait unable to assess due to severe vertigo. HINTS exam: Right beating nystagmus. No vertical skew deviation. Normal VOR. Mental: Mood and affect congruent. Alert and oriented. Attention intact. No evidence of disorganizedthinking. 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 DIAGNOSTICS I have reviewed the labs and diagnostics from admission. ASSESSMENT / PLAN Ms. Leon is hospitalized on [facility] ([facility]) for evaluation and management of an acute episode of vertigo in the setting of recurrent vertigo. The etiology of her symptoms remains unclear. It is reassuring that she has similar episodes severaltimes per year that resolve. While these episodes have seemingly responded to the Felipe maneuver in the past, the history does not seem to be clearly consistent with BPPV given the abrupt onset withouthead movement and continuous nature of the symptoms. The frequency of episodes also argues against BPPV. Other causes of recurrent vertigo should be considered including Meniere's disease (though less likely given lack of additional symptoms), perilymph fistula, migraines, and vertebrobasilar insufficiency. Her physical exam is reassuring for a peripheral cause of vertigo. Given the low suspicion for a central cause of vertigo, will defer imaging at this time. I spoke with ENT who do not feel that they can offer her much as an inpatient but do agree with outpatient follow up in the vestibular clinic. Will consult physical therapy for vestibular rehab. #1 Vertigo - Ondansetron PO [id number] PRN for nausea and vomiting - Meclizine 25 mg TID PRN for dizziness - Trial of Felipe maneuver - PT evaluate and treat - Outpatient vestibular clinic follow up for recommendations for further diagnostic evaluation # Osteopenia # Asthma # Gastroesophageal reflux disease - Continue home calcium - Continue home albuterol nebulizer as needed - Continue home pantoprazole Diet: general diet Tubes/lines: PIV VTE prophylaxis: heparin Code status: Prior Disposition: Home Mckenna Cohen MD Internal Medicine, PGY-1 documented in this encounter Consult Notes Tabitha Conte M.S., O.T. - 01/30/2021 1:18 PM CDT Occupational Therapy Acute Hospital Inpatient Evaluation/Treatment SUBJECTIVE Referring/Attending Provider: Blake Delacruz M.D. Patient's Name: Kathryn Leon Reason for Referral: OT eval and treat: functional safety and independence following onselt of BPPV Medical Diagnosis: 1. Vertigo 2. Vertigo Benign Paroxysmal Positional Bilateral Onset Date: 01/29/21 Payor: MEDICARE / Plan: [...] Repair of cystocele History of Present Illness: patient has had issues with vertigo in the past. See history for currentsymptoms as outlined. See Hospital Admission History and Physical for full history of present illness. Precautions Other Precautions: vertigo, fall risk Patient/Caregiver Goals: Decreased vertigo, return home Prior Function/Occupational Profile Dominant Hand: Right Lives With: Spouse ADL Assistance: Independent IADL/Homemaking Assistance: Independent Driving: Does not drive Occupational Role: Retired Prior Mobility/Functional Transfers Level of [place]: Independent Home Living Type of Home: House Home Layout: One level Home Access: Stairs to enter with rails Bathroom Shower/Tub: Walk-in shower Bathroom Toilet: Comfort height Home Equipment Gait Devices Owned: Front-wheeled walker, Cane Bathroom Equipment: Built-in shower seat, Grab bars in shower Fall Risk (65 and older) Fall in the last 12 months: No Are you fearful of falling?: No OBJECTIVE Pain: none Vitals:Not indicated at this time Cognition Arousal/Alertness: Appropriate responses to stimuli Attention: Addressed, no concerns noted Orientation: Oriented X4 Following Commands: Follows all commands/directions without difficulty Safety/Judgment: Addressed, no concerns noted Baseline Vision/Correction: Wears glasses all the time Ocular Motility/Range of Motion Assessment Right Eye: Addressed, no concerns noted Oculomotor Assessment: Yes Saccades: negative Smooth Pursuits: normal Vestibulo-ocular Movements: normal Vision Assessment Comments: No nystagmus noted with ocular movements Light Touch: No deficits Sharp/Dull: No deficits Proprioception: No deficits Inattention/Neglect: No deficits observed ROM - Upper Extremity Screen: Addressed, no concerns noted ROM - Lower Extremity Screen: Addressed, no concerns noted Strength - Upper Extremity Screen: Addressed, no concerns noted Strength - Lower Extremity Screen: Addressed, no concerns noted Patient/Family Education: Role of OT in acute setting At the end of today's therapy session patient was left in bed with an appropriate call light within reach. Patient's needs and questions addressed during today's session. Contact Monitoring: PPE used during therapy: Therapist was wearing the following PPE throughout entire session: surgicalmask Assessment OT completes bed based eval on this date as additional services are attempting to work with the patient at this time. Patient is a 85 year old female who was highly active and independent with ADL/IADLs prior to hospitalization. Patient lives with spouse who can provide assist as needed. Patient continues to present with ongoing dizziness and loss of balance per PT report. OT to continue to assess patients functional mobility and safety with self cares next session. Dismissal planning is ongoing at this time. Patient is not functioning at her baseline and would benefit from skilled OT services in order to increase overall safety and independence with Activities of daily living Rehab Potential: Ms. Leon has excellent potential to achieve established occupational therapy goals within the time frame outlined below. Barriers to Discharge Home: Fall risk Personal Factors: Age Discharge Therapy Needs - OT: Other (Comment) (ongoing) Functional Goals and Timeframes: OT Goal #1: Patient will demonstrate the ability to complete all aspects of toileting : transfers, clothing management and hygiene with supervision prior to dismissal OT Goal #2: Patient will complete TB dressing with supervision prior to dismissal OT Goal #3: Patient will demonstrate ability to stand sinkside and compelte all grooming self cares with supervision prior to d/c OT Goal #4: Patient will verbalize understanding of all home going recommendations including use of adaptive equipment and implementation of home exercise program prior to d/c Plan Patient agrees with the plan of care and goals. Treatment Plan: OT Frequency: 5 times per week OT Amount: 1 visit per day Treatment interventions may include: Treatment Interventions: Therapeutic functional activity, Self-care/home management Occupational Profile and History review: Brief Performance Deficits: 1 - 3 performance deficits Evaluation Complexity: Low Time Spent with Patient OT Evaluation (min): 15 min Time Calculation Total Treatment Time (min): 15 min Yanet Conte M.S., O.T. Efrain Hendrix, P.T. - 01/30/2021 10:08 AM CDT Physical Therapy [facility] Inpatient Evaluation/Treatment SUBJECTIVE Referring/Attending Provider: Blake Delacruz M.D. Patient's Name: Kathryn Leon Reason for Referral: PT eval and treat: BPPV and mobility assessment Medical Diagnosis: 1. Vertigo 2. Vertigo Benign Paroxysmal Positional Bilateral Onset Date: 01/29/21 Payor: MEDICARE / Plan: [...] Repair of cystocele History of Present Illness: patient has had issues with vertigo in the past. See history for currentsymptoms as outlined. See Hospital Admission History and Physical for full history of present illness. Precautions Other Precautions: vertigo, fall risk Patient/Caregiver Goals: Decreased vertigo, return home Patient Comments: Patient in bed and feeling better overall. Ongoing issues with dizziness when sitting up and standing. Prior Function/Occupational Profile Dominant Hand: Right Lives With: Spouse ADL Assistance: Independent IADL/Homemaking Assistance: Independent Driving: Independent Occupational Role: Retired Home Living Type of Home: House Home Layout: One level Home Access: Stairs to enter with rails Entrance Stairs: Number of Steps: 3 Bathroom Shower/Tub: Walk-in shower Home Equipment Gait Devices Owned: Front-wheeled walker, Cane Fall Risk (65 and older) Fall in the last 12 months: No Are you fearful of falling?: No OBJECTIVE Pain: Vitals:Patient with sitting blood pressure was 156/81, 2nd reading was 170/69, standing blood pressure was 159/79. Issues with high blood pressure when tested could be contributing to her dizziness. Cognition Arousal/Alertness: Appropriate responses to stimuli Attention: Addressed, no concerns noted Orientation: Oriented X4 Safety/Judgment: Addressed, no concerns noted Ocular Motility/Range of Motion Assessment Right Eye: Addressed, no concerns noted Saccades: negative Smooth Pursuits: normal Vestibulo-ocular Movements: normal Vision Assessment Comments: No nystagmus noted with ocular movements Light Touch: No deficits Sharp/Dull: No deficits Inattention/Neglect: No deficits observed ROM - Upper Extremity Screen: Addressed, no concerns noted ROM - Lower Extremity Screen: Addressed, no concerns noted Strength - Upper Extremity Screen: Addressed, no concerns noted Strength - Lower Extremity Screen: Addressed, no concerns noted Bed Mobility - Supine to Sit Level of Assistance: Independent Device: None Bed Mobility - Sit to Supine Level of Assistance: Independent Device: None Sit to Stand Transfers Level of Assistance: Hand held assistance, Moderate assistance Comments: patient is unsteady and feels dizzy when standing up with no nystagmus noted. Stand to Sit Transfers # of Assistants: 1 Transfer Equipment: Front wheeled walker Level of Assistance: Hand held assistance, Moderate assistance Bed, Chair, Wheelchair Transfers # of Assistants: 1 Level of Assistance: Hand held assistance, Moderate assistance Comments: unsteadiness hen walking requring assist due to dizziness. Gait Assessment/Training Distance (m): 5 m Surface: Even Device: No device # of Assistants: 1 Level of Assistance: Moderate assistance Quality/Pattern: Ataxic, Guarding Assessment of Gait: slow pace. unsteady overall due to feelings of dizziness. Training/Intervention: Pt was educated she should use her walker at home until she feels stronger. If she continues to feel weak with ambulation, . Vestibular Symptoms Description of Symptoms: lightheaded, nauseated, imbalance Provoking Activities: supine to / from sit, other (comment) (Standing) Complaint of Hearing Loss: Yes (decreased hearing she reprots in left ear.) ROM Cervical ROM: Addressed, no concerns noted Balance Testing Balance Testing Deficits: Yes Oculomotor Testing Spontaneous Nystagmus: Test in room light (normal.) Smooth Pursuit: Addressed, no concerns noted Smooth Pursuit Neck Torsion Test: Addressed, no concerns noted Gaze Hold Nystagmus: Test in room light (no nystagmus) Saccades: Addressed, no concerns noted VOR Cancellation: Addressed, no concerns noted Head Thrust / VOR Fast: Addressed, no concerns noted Skew Eye Deviation: Addressed, no concerns noted Positional Testing Jimmy Hallpike: Addressed, no concerns noted Modified Side Lying Test: Addressed, no concerns noted Roll Test: Addressed, no concerns noted Motion Sensitivities: Supine to sit Impressions Vestibular Impression: non benign paroxysmal positional vertigo dizziness symptoms Vestibular Suppression Medications: Yes (this last PM had meclazine and zofran.) Treatment Habituation Exercises: habituation with felipe maneuver and head movements. Patient/Family Education: patient instructed in goal of sitting up to bedside chair for increased time along with gentle movements of head for habituation. At the end of today's therapy session patient was left patient on cart to MRI with an appropriate call light within reach. Patient's needs and questions addressed during today's session. Contact monitoring: PPE used during therapy: Therapist was wearing the following PPE throughout entire session: surgicalmask Assessment Patient with issues with dizziness. With full benign paroxysmal positional vertigo testing, patient demonstrates no nystagmus with testing or oculomotor issues. Demonstrated dizziness is not due to benign paroxysmal positional vertigo issues. Patient with hearing issues and instructed her in pressure regulation of ears which helped to clear hearing issues and could help with dizziness. Primary issue seems to be her high blood pressure which in sitting was 156/81 and tested again was 170/69. Standing blood pressure was 159/79 with issues of complaints of dizziness and unsteadiness butno nystagmus noted. Discussed with patient and nursing goals of increased sitting time at bedside chair along with general neck range of motion for habituation exercises as she is being medically worked up. Patient off to MRI after patient was seen. Patient is currently unsteady on her feet requiring moderate assistance for balance and is not safe to go home. Will check back with her on 01/31 for reassessment of mobility. Rehab Potential: Ms. Leon has Good potential to achieve established physical therapy goals withinthe time frame outlined below. Barriers to a safe discharge home: ongoing issues with dizziness requiring assist for balance. Barriers to Discharge Home: Fall risk Equipment Recommended - PT: Front-wheeled walker Equipment Vendor - PT: has own front wheeled walker in home. Functional Goals and Timeframes: PT Goal #1: Reduced dizziness to allow independent mobility and gait. PT Goal #1 Status: Progressing Progress: Slow progress, limited activity tolerance Plan Patient agrees with the plan of care and goals. Treatment Plan: PT Frequency: 5 times per week PT Amount: 1 visit per day PT Inpatient Duration : Until goals are met or hospital discharge Plan: Continue with current plan PT Plan Comments: see for dizziness and progressive mobility Treatment interventions may include: Treatment/Interventions: Therapeutic exercise, Therapeutic functional activity, Gait training Clinical Presentation: Evolving Number of Examination elements: 1-2 Clinical Decision Making: Moderate complexity clinical decision making Time Spent with Patient PT Evaluation (min): 15 min Canalith Repositioning (min): 15 min Therapeutic Activity (min): 30 min Total Timed Units (min): 30 min Total Treatment Time (min): 60 min Efrain Hendrix P.TDann documented in this encounter Nursing Notes Nuris Lea R.N. - 01/30/2021 5:28 PM CDT Shift Goals: Clinical Goals for the Shift: Patient will remain free of falls this shift Identify possible barriers to meeting goals/advancing plan of care: work-up for vertigo End of Shift Summary: Goal met. documented in this encounter Miscellaneous Notes Hospital Course - Ariana Cohen M.D. - 01/31/2021 11:59 AM CDT Ms. Kathryn Leon is a 85 y.o. female with past medical history of recurrent severe vertigorequiring prior hospitalizations (most recently in 2019) who presented with vertigo. ?? She was in her normal state of health on the evening of admission when she suddenly became very dizzy and nauseated while she was sitting talking on the phone around 8 pm. She described the dizziness as feeling as if the room is spinning.There was no clear movement of her head at the onset of symptoms. She decided to go lay down in bed but was too dizzy to stand up. Dizziness persisted and she decided to present to an outside ED. ?? In the ED, she was hemodynamically stable and maintaining good oxygen saturations on room air. Physical exam was significant for lateral nystagmus and a positive Waleska-Hallpike test. Basic labs were obtained and were unremarkable. She was treated with meclizine, ondansetron, and IV fluids without resolution of her symptoms. She was transferred to [facility] for further evaluation and management. ?? On admission, symptoms were still present and she describes the dizziness as severe. Symptoms were constant and were not related to head movement. This episode was similar to prior episodes. She deniedrecent illness, fever, chills, tinnitus, headache, visual changes, weakness, numbness, tingling, or any other complaints. 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 She has had a previous workup for similar symptoms but has never seen ENT. She has these episodes 3-4 times per year. Brain MRI in 2015 was negative for stroke. The etiology of her symptoms remains unclear. It is reassuring that she has similar episodes severaltimes per year that resolve spontaneously. Her physical exam was reassuring for a peripheral cause of vertigo. While these episodes have seemingly responded to the Felipe maneuver in the past, the history does not seem to be consistent with BPPV given the abrupt onset without head movement and continuous nature of the symptoms. The frequency of episodes also argues against BPPV. Other causes of recurrent vertigo should be considered including Meniere's disease (though less likely given lack of additional symptoms), perilymph fistula, migraines, and vertebrobasilar insufficiency. ?? MRI was done and showed a small focus diffusion signal change with associated gadolinium enhancementlocated within the the subcortical white matter of the inferior left parietal lobe. Differential considerations include a small subacute infarct versus a small metastasis. This is unlikely the cause ofher symptoms but does need to be followed up in 6-8 weeks. Vertigo completely resolved completely after 24 hours. She did have some residual weakness, which she states is typical after these episodes. Outpatient vestibular clinic and neurology follow up will be arranged for further evaluation of recurrent vertigo. She was discharged in stable condition on 01/31. documented in this encounter Plan of Treatment Scheduled Referrals Name Type Priority Associated Diagnoses Order S [facility] Neurology - General Outpatient Referral Routine Vertigo E xpected: consult (clinic) 01/30/2021 (Approximate), Expires: 01/31/2024 documented as of this encounter Procedures Procedure Name Priority Date/Time Associated Comments Diagnosis MR BRAIN WITHOUT RAD - Routine 01/30/2021 12:03 Result s for this AND WITH IV (most inpatients PM CDT procedure a re in CONTRAST and all the results outpatients) section. documented in this encounter Results Audiology evaluation (02/07/2021 12:00 AM CDT) Specimen (Source) Anatomical Location Collection Method / Collectio n Time Received Time / Laterality Volume 02/07/2021 Narrative This result has an attachment that is no t available. Jessica Salas M.D. AUDIOLOGY SERVICES ORDERABLE S Performing Organization Address City/State/ZIP Code Phon e Number AUDIOLOGY AND [facility] MR Brain without and with IV Contrast (01/30/2021 12:03 PM CDT) Anatomical Region Laterality Modality Head, Brain, Neuroradiology RST LOS, Neuroradiology ARZ N/A Magnetic Resonance LOS, Neuroradiology FLA LOS Specimen (Source) Anatomical Collection Method Collection Time Re ceived Time Location / / Volume Laterality 01/30/2021 12:07 PM CDT Impressions 01/30/2021 12:22 PM CDT 1. Small focus diffusion signal change with associated gadolinium enhancement located within the the subcortical white matter of the inferior left parietal lobe. Differential considerations includ e a small subacute infarct versus a small metastasis. If clinically indicate d, a follow-up MRI in 6-8 weeks would be helpful to confirm expected evolution of infarction and exclude an underlying lesion. 2. No additional acute intracranial find ings are identified. Generalized atrophy of the brain. 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 Narrative 01/30/2021 12:22 PM CDT EXAM: MR BRAIN WITHOUT AND WITH IV CONTRAST COMPARISON: MRI brain 10/04/2014. FINDINGS: Mild generalized cerebral and cerebellar atrophy. Multiple nonenhancing T2 hyperintensities within the white matter of both hemispheres with additional patchy hyperintense sign al changes within the alfredo, nonspecific in etiology but compatible with moderate chronic small vessel ischemic changes. Diffusion-weighted imaging demonstrates a 3 mm focus of bright diffusion signal change located within the subcortical wh ite matter of the inferior left parietal lobule (series 3, image 21), which demon strates a small amount of associated enhancement on post gadolinium imaging. This focus appears isointense to surrounding brain on the ADC map. Findin gs are new compared to 10/04/2014 and consistent with subacute infarction, alt jose a small metastasis could have similar appearance. No other diffusion s ignal abnormality is identified. Susceptibility weighted imaging demonstr ates a small nonspecific focus of susceptibility change within the anterio r inferior right temporal lobe (series 7, image 50), consistent with a chronic microhemorrhage. No surrounding edema or associated gadolinium enhancement. The ventricles are normal in caliber. No midline shift or herniation. Bilateral pseudophakia. Mild scattered mucosal thi ckening within the paranasal sinuses. Procedure Note Darnell Nunez M.D. - 01/30/2021For matting of this note might be different from the original. EXAM: MR BRAIN WITHOUT AND WITH IV CONTR AST COMPARISON: MRI brain 10/04/2014. FINDINGS: Mild generalized cerebral and cerebellar atrophy. Multiple nonenhancing T2 hyperintensities within the white matter of both hemispheres with additional patchy hyperintense sign al changes within the alfredo, nonspecific in etiology but compatible with moderate chronic small vessel ischemic changes. Diffusion-weighted imaging demonstrates a 3 mm focus of bright diffusion signal change located within the subcortical wh ite matter of the inferior left parietal lobule (series 3, image 21), which demon strates a small amount of associated enhancement on post gadolinium imaging. This focus appears isointense to surrounding brain on the ADC map. Findin gs are new compared to 10/04/2014 and consistent with subacute infarction, alt jose a small metastasis could have similar appearance. No other diffusion s ignal abnormality is identified. Susceptibility weighted imaging demonstr ates a small nonspecific focus of susceptibility change within the anterio r inferior right temporal lobe (series 7, image 50), consistent with a chronic microhemorrhage. No surrounding edema or associated gadolinium enhancement. The ventricles are normal in caliber. No midline shift or herniation. Bilateral pseudophakia. Mild scattered mucosal thi ckening within the paranasal sinuses. IMPRESSION: 1. Small focus diffusion signal change w ith associated gadolinium enhancement located within the the subcortical white matter of the inferior left parietal lobe. Differential considerations includ e a small subacute infarct versus a small metastasis. If clinically indicate d, a follow-up MRI in 6-8 weeks would be helpful to confirm expected evolution of infarction and exclude an underlying lesion. 2. No additional acute intracranial find ings are identified. Generalized atrophy of the brain. 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 Ariana LLANES MRI PROCEDURES documented in this encounter Visit Diagnoses Diagnosis Vertigo - Primary Vertigo Benign Paroxysmal Positional Jeff ateral documented in this encounter Admitting Diagnoses Diagnosis Vertigo documented in this encounter Administered Medications Inactive Administered Medications - up to 3 most recent administrations Medication Order MAR Action Action Date Dose Rate Site calcium citrate tablet Given 01/31/2021 9:24 AM 600 mg of calciu m 600 mg of calcium CDT (CALCITRATE) 600 mg of calcium, oral, Daily with breakfast, First dose on Thu01/30/21 at 0800 Given 01/30/2021 9:21 AM CDT 600 mg of calcium cycloSPORINE 0.05 % ophthalmic emulsion 1 drop (RESTASIS) 1 drop, both eyes, 2 times daily, First dose on Thu at 1030 dorzolamide-timoloL 22.3-6.8 mg/mL ophth almic solution 1 drop (COSOPT) 1 drop, right eye, Daily, First dose on Thu01/31/21 at 1030 fluticasone propionate 50 mcg/actuation nasal spray 2 spray (FLONASE) 2 spray, each nostril, Daily, First dose on Thu 1 at 1030 gadobutrol injection 0.01-30 mL (GADAVIS T) Given 01/30/2021 11:48 AM CDT 8 mL 0.01-30 mL, intravenous, Once in imaging, contrast, Starting on Thu01/30/21 at 1148, For 1 dose, Imaging Protocol Orders, Dose per Radiant Medication Guidelines heparin (porcine) Given 01/31/2021 6:33 AM CDT 5,000 Units Left Lower Abdomen injection 5,000 Units 5,000 Units, subcutaneous, Every 8 hours scheduled, First dose on Thu01/30/21 at 0600 Given 01/30/2021 9:59 PM CDT 5,000 Units Right Lower Abdomen Given 01/30/2021 1:53 PM CDT 5,000 Units Left Lower Abdomen loratadine tablet 10 mg (CLARITIN) Given 01/31/2021 10:35 AM CDT 10 mg 10 mg, oral, Daily, First dose on Thu01/31/21 at 1030, loratadine 10 mg oral daily was interchanged for fexofenadine 60 mg oral twice daily meclizine tablet 25 mg (ANTIVERT) 25 mg, oral, 3 times daily PRN, dizziness, Starting on Thu01/30/21 at 0210 oqndhdzsdehg-ojxu-AY-Ca-minerals 400 mcg Given 01/31/2021 8:02 A M CDT 1 tablet (folic acid) tablet 1 tablet (THERAPEUTI C-M) 1 tablet, oral, Daily, First dose on Thu01/30/21 at 0900 Given 01/30/2021 9:21 AM CDT [address] tablet 40 mg (PROTONIX) Given 01/31/2021 6:34 AM CDT 40 mg 40 mg, oral, Daily before breakfast, First dose on Thu01/30/21 at 0700, pantoprazole 40 mg oral daily was interchanged for omeprazole 20 or 40 mg oral daily Swallow whole. Do NOT crush, chew, or split tablet. Given 01/30/2021 6:49 AM CDT 40 mg documented in this encounter Active and Recently Administered Medications Times are shown in CDT. Scheduled Medication Order 01/29/2021 01/30/2021 01/31/2021 calcium citrate tablet 600 mg of calcium (CALCITRATE) 0921 (Given - Provider: Nuris Lea R.N.) 0924 (Given - Provider: Bob Gutierrez - Comment: late breakfast) 600 mg of calcium, oral, Daily with maria teresa kfast, First dose on Thu01/30/21 at 0800 cycloSPORINE 0.05 % ophthalmic emulsion 1 drop (RESTASIS) 1033 (Held by provider - Provider: Ariana Cohen M.D. - Comment: May be discharging)1043 (Not Given - Provider: Bob Gutierrez - Reason: See Provider Order)1738 (Unheld by provider - Provider: Discharge Provider, Automatic) 1 drop, both eyes, 2 times daily, First dose on Thu01/31/21 at 1 030 dorzolamide-timoloL 22.3-6.8 mg/mL ophthalmic solution 1 drop (C OSOPT) 1033 (Held by provider - Provider: Ariana Cohen M.D. - Comment: May be discharging)1043 (Not Given - Provider: Bob Gutierrez - Reason: See Provider Order)1738 (Unheld by provider - Provider: Discharge Provider, Automatic) 1 drop, right eye, Daily, First dose on Thu01/31/21 at 1030 fluticasone propionate 50 mcg/actuation nasal spray 2 spray (ALICE NASE) 1033 (Held by provider - Provider: Ariana Cohen M.D. - Comment: May be discharging)1043 (Not Given - Provider: Bob Gutierrez - Reason: See Provider Order)1738 (Unheld by provider - Provider: Discharge Provider, Automatic) 2 spray, each nostril, Daily, First dose on Thu01/31/21 at 1030 heparin (porcine) injection 5,000 Units 0649 (Given - Provider: Doris Garrison R.N.)1353 (Given - Provider: Nuris Lea R.N.)2159 (Given - Provider: Edilia Doty R.N.) 0633 (Given - Provider: Lorna raymundo RChelsey)1421 (Not Given - Provider: Yessenia Boyce RChelsey - Reason: Patient/family refused) 5,000 Units, subcutaneous, Every 8 hours scheduled, First dose on Thu01/30/21 at 0600 loratadine tablet 10 mg (CLARITIN) 1035 (Given - Provider: Bob Gutierrez) 10 mg, oral, Daily, First dose on Thu at 1030, loratadine 10 mg oral daily was interchanged for fexofenadine 60 mg oral twice daily bbsstntkrxai-idzl-SA-Ca-minerals 400 mcg (folic acid) tablet 1 tablet (THERAPEUTIC-M) 0921 (Given - Provider: Nuris Lea R Chelsey) 0802 (Given - Provider: Bob Gutierrez) 1 tablet, oral, Daily, First dose on Thu01/30/[address] tablet 40 mg (PROTONIX) 0649 (Given - Provider: Doris Garrison R.N.) 0634 (Given - Provider: Lorna raymundo RDannNDann) 40 mg, oral, Daily before breakfast, Fir st dose on Thu01/30/21 at 0700, pantoprazole 40 mg oral daily was interchanged for omeprazole 20 or 40 mg oral daily Swallow whole. Do NOT crush, chew, or split tablet. sodium chloride (PF) 0.9 % injection 1-100 mL 12 00 (Due) 1-100 mL, intravenous, Once, On 01/30 at 1200, For 1 dose, Imaging Protocol Orders PRN Medication Order 01/29/2021 01/30/2021 01/31/2021 albuterol nebulizer solution 2.5 mg (ACCUNEB) 2.5 mg, nebulization, Every 6 hours PRN, wheezing, shortness of breath, Starting on Thu01/30/21 at 0208 gadobutrol injection 0.01-30 mL (GADAVIST) (COMPLETED) 1148 (Given - Provider: Antonia Servin(Grayson)(MR) - Comment: lot# [id number]) 0.01-30 mL, intravenous, Once in imaging , contrast, Starting on Thu01/30/21 at 1148, For 1 dose, Imaging Protocol Orders, Dose per Radiant Medication Guidelines meclizine tablet 25 mg (ANTIVERT) 25 mg, oral, 3 times daily PRN, dizziness, Starting on Thu at 0210 ondansetron ODT disintegrating tablet 4 mg (ZOFRAN-ODT) 4 mg, oral, Every 6 hours PRN, nausea, v omiting, Starting on Thu01/30/21 at 0208, When splitting ODT at bedside, handle with gloves and a pill splitter to prevent moisture contact. documented in this encounter Care Teams Surgical Elastic Knitter Hand Frame Relationship Specialty Start Date End Date Elsewhere, Pcp PCP - General Family Medicine 01/31/21 documented as of this encounter
--- OUTSIDE RECORDS SUMMARY | 2022-05-06 13:09 | XMS_ITS | Encounter Summary ---
:1935 Author Organization [facility] Address [address] [place] [address] Care Team Providers Name Role Phone Elsewhere, Pcp Primary Care Provider Unavailable Encounter Details Date Type Department Care Team Description 05/17/2019 Comprehensive Visit Department of Candido Rodriguez M.D. [address] [place] [id number] Vertigo Benign Paroxysmal Positional Jeff ateral; Rehabilitation Bianca Guerrero, P.T. [address] [place] [phone] Arthritis Rheumatoid (HCC); Services in [address] [phone] Social History Tobacco Use Types Packs/Day Years Used Date Smoking Tobacco: Never Smokeless Tobacco: Never Alcohol Use Standard Drinks/Week Comments Not Currently 0 (1 standard drink = 0.6 oz pure alcoho l) Sex Assigned at Date Recorded Not on file documented as of this encounter Progress Notes Bianca Guerrero, P.T. - 05/17/2019 1:00 PM CDT Physical Therapy Outpatient Treatment Note SUBJECTIVE Patient's Name: Kathryn Leon Referring Provider: Con Rodriguez M.D. Visit Diagnosis: 1. Vertigo Benign Paroxysmal Positional Bilateral 2. Arthritis Rheumatoid (HCC) 3. Vertigo Reason for Referral: PT eval and treat: BPPV and mobility assessment Onset Date: 05/12/19 Payor: MEDICARE / Plan: MEDICARE A AND B / Product Type: Medicare / No data recorded Epic Visit Count: 1 Patient comments: patient is overall doing much better but she can still trigger vertigo with head movements. She notices symptoms most when going from supine to sit. OBJECTIVE Pain: no pain reported Hallpike Jimmy test: no nystagmus was visualized but symptoms verbalized in the position of the right posterior/left anterior position with mild symptoms noted on the opposite side as well. TREATMENT Treatment today consisted of: Performed SPOOL MAKER manuevers for the right posterior/left anterior canals x 2. Home Exercise Program/Education: No home program recommended at this time. Pt reports good compliance with her HEP. Assessment Clinical Impression: Tolerated with symptom reproduction. Functional Goals and Timeframes: PT Goal #1: Patient will have symptom resolution in 1 week. PT Goal #2: Patient will transfer from supine to/from sit without symptom reproduction in 1 week. Plan Plan for next session: reassess vertigo as needed. Patient will contact therapist if symptoms persist. Time Spent with Patient Canalith Repositioning (min): 20 min Time Calculation Total Treatment Time (min): 20 min Functional G-code Worksheet Bianca Guerrero P.T. Department of Rehabilitation Services in [address] [phone] Dept: [phone] documented in this encounter Miscellaneous Notes Addendum Note - Bianca Guerrero P.T. - 05/17/2019 1:00 PM CDT Addended by: BIANCA GUERRERO on: 04/18/2020 10:17 AM Modules accepted: Orders documented in this encounter Plan of Treatment Not on filedocumented as of this encounter Visit Diagnoses Diagnosis Vertigo Benign Paroxysmal Positional Jeff ateral Arthritis Rheumatoid (HCC) Vertigo documented in this encounter Care Teams Card Services Specialist Relationship Specialty Start Date End Date Elsewhere, Pcp PCP - General Family Medicine 08/26/17 01/30/21 documented as of this encounter
--- OUTSIDE RECORDS SUMMARY | 2022-05-06 13:09 | XMS_ITS | Encounter Summary ---
:1935 Author Organization [facility] Address [address] [place] [id number] Care Team Providers Name Role Phone Elsewhere, Pcp Primary Care Provider Unavailable Encounter Details Date Type Department Care Team Description 01/30/2021 Orders Only Department of Otorhinolaryngology Radha Edwards in [place], [facility] stephanie Fung [address] [facility] [address] [place] [address] [place], [place] [phone] Social History Tobacco Use Types Packs/Day Years [...] on filedocumented in this encounter Care Teams Athletic Director Relationship Specialty Start Date End Date Elsewhere, Pcp PCP - General Family Medicine 01/31/21 documented as of this encounter
--- OUTSIDE RECORDS SUMMARY | 2022-05-06 13:09 | XMS_ITS | Encounter Summary ---
:1935 Author Organization [facility] Address [address] [place] [address] Care Team Providers Name Role Phone Elsewhere, Pcp Primary Care Provider Unavailable Reason for Referral Outpatient (Routine) - Closed Specialty Diagnoses / Procedures Referred By Contact Refer red To Contact Diagnoses Elevated Liver Function Test Suze Tolentino APRN, [facility] [place] [facility] Procedures US Abdomen Complete C.N.P., R.N. [address] [address] Referral ID Status Reason Start Date Expiration Date Visits Requ ested Visits Authorized [id number] Closed 11/05/2020 11/05/2021 1 1 NESS OFFICE DIRECTOR Reason for Visit Outpatient (Routine) - Closed Specialty Diagnoses / Procedures Referred By Contact Refer red To Contact Diagnoses Elevated Liver Function Test Suze Tolentino APRN, [facility] [place] [facility] Procedures US Abdomen Complete C.N.P., R.N. [address] [address] Referral ID Status Reason Start Date Expiration Date Visits Requ ested Visits Authorized [id number] Closed 11/05/2020 11/05/2021 1 1 Encounter Details Date Type Department Care Team Description 11/13/2020 Hospital Encounter Department of Suze Tolentino Elevate d Liver Radiology in [place] Angy [facility] [address] [place], [place] [address] [place] [address] [place] [address] [phone] Social History Tobacco Use Types Packs/Day Years [...] 0 05/20/[address] capsule daily. albuterol (ACCUNEB) as needed. 0 05/14/201901/30 2.5 mg /3 mL nebulizer solution alendronate (FOSAMAX) TAKE 1 TABLET EVERY 7 [...] Procedure Name Priority Date/Time Associated Comments Diagnosis US ABDOMEN RAD - Routine 11/13/2020 1:41 Elevated Liver Results f or this COMPLETE (most inpatients PM BUSINESS OFFICE DIRECTOR Function Test procedure are in and all the results outpatients) section. documented in this encounter Results US Abdomen Complete (11/13/2020 1:41 PM BUSINESS OFFICE DIRECTOR) Anatomical Region Laterality Modality Abdomen, Ultrasound RST LOS, Ultrasound ARZ LOS, Ultrasound FLA N/A Ultrasound LOS Specimen (Source) Anatomical Collection Method Collection Time Re ceived Time Location / / Volume Laterality 11/14/2020 10:06 AM BUSINESS OFFICE DIRECTOR Impressions 11/14/2020 10:11 AM BUSINESS OFFICE DIRECTOR 1. There is cholelithiasis and there is sludge in the gallbladder but there is no ultrasound evidence for acute cholecy stitis. 2. Increased hepatic parenchymal echogen icity consistent with fatty infiltration. 3. The nodule in the uncinate process of the pancreas noted on the prior CT studies is not well visualized sonograph gabino. Narrative 11/14/2020 10:11 AM BUSINESS OFFICE DIRECTOR EXAM: US ABDOMEN COMPLETE COMPARISON: CT examination of the abdome n and pelvis 04/14/2018 and ultrasound examination of the abdomen 09/24/2016 FINDINGS: Liver: Diffuse increased echogenicity co nsistent with hepatic steatosis. ??Stable 3.1 x 2.4 x 1.8 cm left hepatic cyst. Gallbladder: Cholelithiasis. No wall thi ckening or pericholecystic fluid. There is also echogenic nonshadowing material within the gallbladder lumen consistent with gallbladder sludge. Intrahepatic ducts: Not dilated. Common duct: Not dilated. Pancreas: Normal where seen. The markedl y hyperenhancing nodule in the uncinate process of the pancreas noted on the mirtha or CT studies is not well visualized sonographically. Right kidney: ?? Length:9.2 cm. Normal echogenicity. No h ydronephrosis. Left kidney: ?? Length:10.1 cm. Normal echogenicity. No hydronephrosis. Spleen: Normal. ??Spleen length:9.9 cm Aorta: Normal caliber. IVC: Normal where seen. Ascites: ??None. Procedure Note Car Roy M.D. - 11/14/2020Format ting of this note might be different from the original. EXAM: US ABDOMEN COMPLETE COMPARISON: CT examination of the abdome n and pelvis 04/14/2018 and ultrasound examination of the abdomen 09/24/2016 FINDINGS: Liver: Diffuse increased echogenicity co nsistent with hepatic steatosis. Stable 3.1 x 2.4 x 1.8 cm left hepatic cyst. Gallbladder: Cholelithiasis. No wall thi ckening or pericholecystic fluid. There is also echogenic nonshadowing material within the gallbladder lumen consistent with gallbladder sludge. Intrahepatic ducts: Not dilated. Common duct: Not dilated. Pancreas: Normal where seen. The markedl y hyperenhancing nodule in the uncinate process of the pancreas noted on the mirtha or CT studies is not well visualized sonographically. Right kidney: Length:9.2 cm. Normal echogenicity. No h ydronephrosis. Left kidney: Length:10.1 cm. Normal echogenicity. No hydronephrosis. Spleen: Normal. Spleen length:9.9 cm Aorta: Normal caliber. IVC: Normal where seen. Ascites: None. IMPRESSION: 1. There is cholelithiasis and there is sludge in the gallbladder but there is no ultrasound evidence for acute cholecy stitis. 2. Increased hepatic parenchymal echogen icity consistent with fatty infiltration. 3. The nodule in the uncinate process of the pancreas noted on the prior CT studies is not well visualized sonograph ically. Suze Tolentino APRN, C.N.P., R.N. IMG US PROCEDURES documented in this encounter Visit Diagnoses Diagnosis Elevated Liver Function Test documented in this encounter Care Teams Assembler Bonding Relationship Specialty Start Date End Date Elsewhere, Pcp PCP - General Family Medicine 08/26/17 01/30/21 documented as of this encounter
--- OUTSIDE RECORDS SUMMARY | 2022-05-06 13:09 | XMS_ITS | Encounter Summary ---
:1935 Author Organization [facility] Address [address] [place] [address] Care Team Providers Name Role Phone Elsewhere, Pcp Primary Care Provider Unavailable Reason for Referral Outpatient (Routine) - Closed Specialty Diagnoses / Procedures Referred By Contact Refer red To Contact Diagnoses Screening Mammogram Breast Cancer Suze Tolentino APRN, [facility] Procedures BI Breast Screening Bilateral C.N.P., R.N. [address] [phone] Referral ID Status Reason Start Date Expiration Date Visits Requ ested Visits Authorized [id number] Closed 11/05/2020 11/05/2021 1 1 ATER Reason for Visit Outpatient (Routine) - Closed Specialty Diagnoses / Procedures Referred By Contact Refer red To Contact Diagnoses Screening Mammogram Breast Cancer Suze Tolentino APRN, [facility] [place] [facility] Procedures BI Breast Screening Bilateral C.N.P., R.N. [address] [address] Referral ID Status Reason Start Date Expiration Date Visits Requ ested Visits Authorized [id number] Closed 11/05/2020 11/05/2021 1 1 Encounter Details Date Type Department Care Team Description 11/13/2020 Hospital Encounter Department of Suze Tolentino Screeni ng Mammogram Radiology in [place] Angy NAM.N.P., Breast Cancer [place], [place] R.N. [address] [place], [place] [address] [place] [address] [phone] Social History Tobacco Use Types Packs/Day Years [...] Comments Diagnosis BI BREAST RAD - Routine 11/13/2020 1:36 Screening Results for this SCREENING (most inpatients PM REHEATER Mammogram Breast procedu re are in BILATERAL and all Cancer the results outpatients) section. documented in this encounter Results BI Breast Screening Bilateral (11/13/2020 1:36 PM REHEATER) Anatomical Region Laterality Modality Breast, Breast Imaging RST LOS, Breast Imaging ARZ LOS, [place] st Bilateral Mammography Imaging FLA LOS Specimen (Source) Anatomical Collection Method Collection Time Re ceived Time Location / / Volume Laterality 11/13/2020 2:08 PM REHEATER Impressions 11/13/2020 2:08 PM REHEATER Negative. RECOMMENDATION: ??Annual Screening Mammo gram ASSESSMENT: ??BI-RADS: 1: Negative. Narrative 11/13/2020 2:08 PM REHEATER EXAM: ??BI BREAST SCREENING BILATERAL Current study was evaluated with a [employer] Aided Detection (CAD) system. INDICATION: ??Screening mammogram. COMPARISON: ??Prior exam(s) were availab le and reviewed for comparison. DENSITY: ??c. The breast(s) are heteroge neously dense, which may obscure small masses. FINDINGS: ??No mammographic findings of malignancy. Procedure Note Car Roy M.D. - 11/13/2020Format ting of this note might be different from the original. EXAM: BI BREAST SCREENING BILATERAL Current study was evaluated with a [employer] Aided Detection (CAD) system. INDICATION: Screening mammogram. COMPARISON: Prior exam(s) were available and reviewed for comparison. DENSITY: c. The breast(s) are heterogene ously dense, which may obscure small masses. FINDINGS: No mammographic findings of ma lignancy. IMPRESSION: Negative. RECOMMENDATION: Annual Screening Mammogr am ASSESSMENT: BI-RADS: 1: Negative. Suze Tolentino APRN, C.N.P., R.N. IMG BI PROCEDURES documented in this encounter Visit Diagnoses Diagnosis Screening Mammogram Breast Cancer documented in this encounter Care Teams Computer Programming Professor Relationship Specialty Start Date End Date Elsewhere, Pcp PCP - General Family Medicine 08/26/17 01/30/21 documented as of this encounter
--- OUTSIDE RECORDS SUMMARY | 2022-05-06 13:09 | XMS_ITS | Encounter Summary ---
:1935 Author Organization [facility] Address [address] [place] [address] Care Team Providers Name Role Phone Elsewhere, Pcp Primary Care Provider Unavailable Reason for Visit Reason Comments Dizziness Encounter Details Date Type Department Care Team Description 05/12/2019 - Emergency [facility] Chey Zamorano III, M.D. [id number] [phone] Vertigo (Primary Dx) 05/13/2019 [facility] [address] [place] [address] [facility], M.D[facility] [address] [place] [phone] Second Floor Con Rodriguez M.D. [address] [id number] [phone] Social History Tobacco Use Types Packs/Day Years Used Date Smoking Tobacco: Never Smokeless Tobacco: Never Alcohol Use Standard Drinks/Week Comments Not Currently 0 (1 standard drink = 0.6 oz pure alcoho l) Sex Assigned at Date Recorded Not on file documented as of this encounter Last Filed Vital Signs Vital Sign Reading Time Taken Comments Blood Pressure 145/75 05/13/2019 5:04 PM CDT Pulse 60 05/13/2019 5:04 PM CDT Temperature 36.2 ??C (97.2 ??F) 05/13/2019 5:04 PM CDT Respiratory Rate 16 05/13/2019 5:04 PM CDT Oxygen Saturation 96% 05/13/2019 5:04 PM CDT Inhaled Oxygen Concentration - - Weight 70.6 kg (155 lb 10.3 oz) 05/12/2019 3:37 PM CDT Height 157.5 cm (5' 2) 05/12/2019 8:57 PM CDT Body Mass Index 28.47 05/12/2019 3:37 PM CDT documented in this encounter Discharge Summaries Con Rodriguez M.D. - 05/13/2019 6:00 PM CDT INPATIENT DISCHARGE SUMMARY BRIEF OVERVIEW Discharge Provider: Con Rodriguez M.D. Primary Care Providers: Elsewhere, Pcp (General) No address on file Admission Date: 05/12/2019 Discharge Date: 05/13/2019 REASON FOR ADMISSION Vertigo PRINCIPAL DIAGNOSIS Vertigo SECONDARY DIAGNOSES Principal Problem: Vertigo Resolved Problems: * No resolved hospital problems. * [facility]POSITION[facility] PHYSICAL EXAMINATION: Vitals: 05/13/19 1704 BP: 145/75 Pulse: 60 Resp: 16 Temp: 36.2 ??C SpO2: 96% General appearance: No distress Lungs clear Cardiac: S1-S2 Abdomen: Soft nontender Extremities: No edema Neurologic: Pupils equal round reactive to light, no nystagmus. Alert and oriented. OUTPATIENT FOLLOW UP Future Appointments Date Time Provider Department Center 06/20/2019 9:00 AM DX [facility] BMD RM 01 RAD DX [facility] 06/20/2019 9:15 AM BI CACF RM 01 RAD BI [facility] DISCHARGE MEDICATIONS Discharge Medications TAKE these medications MING-D 12 HOUR 60-120 mg per 12 hr tablet Take 1 tablet by mouth 2 (two) times a day. Generic drug: fexofenadine-pseudoephedrine BIOTIN ORAL Take by mouth daily. CALCIUM CITRATE ORAL Take 1 tablet by mouth 2 (two) times a day. CYANOCOBALAMIN (VITAMIN B-12) ORAL Take 1,000 mcg by mouth daily. cycloSPORINE 0.05 % ophthalmic emulsion Commonly known as: RESTASIS Administer 1 drop into both eyes every 12 (twelve) hours. dorzolamide-timolol 22.3-6.8 mg/mL ophthalmic solution Commonly known as: COSOPT Start taking on: 05/14/2019 Administer 1 drop into the right eye daily. EPIPEN 2-KRISTIN 0.3 mg/0.3 mL injection syringe Inject 0.3 mg intramuscularly once. Generic drug: EPINEPHrine ferrous sulfate 325 mg (65 mg iron) tablet Take 1 tablet by mouth daily. FLONASE 50 mcg/actuation nasal spray Administer 2 sprays into each nostril daily. Generic drug: fluticasone propionate meclizine 25 mg tablet Commonly known as: ANTIVERT Take 1 tablet (25 mg total) by mouth 3 (three) times a day as needed for dizziness for up to 9 days. melatonin 3 mg tablet Take 2 tablets (6 mg total) by mouth at bedtime. MULTIVITAMIN ORAL Take 1 tablet by mouth daily. ondansetron ODT 4 mg disintegrating tablet Commonly known as: ZOFRAN-ODT Take 1 tablet (4 mg total) by mouth 4 (four) times a day as needed for nausea or vomiting for up to 7 days. pantoprazole 40 mg EC tablet Commonly known as: PROTONIX Start taking on: 05/14/2019 Take 1 tablet (40 mg total) by mouth every morning before breakfast. simethicone 80 mg chewable tablet Commonly known as: MYLICON Chew 1 tablet (80 mg total) 4 (four) times a day as needed for flatulence. sodium chloride 0.9 % injection Infuse 2-10 mL into a venous catheter as needed for line care. DETAILS OF HOSPITAL STAY HOSPITAL COURSE Patient was brought in the hospital under observation. She received vestibular rehabilitation via physical therapy. She also intravenously received Solu-Medrol 125 mg as well as oral meclizine for her vertigo. In the evening she was still vertiginous and dizzy. Joint decision made to admit her to acute care for overnight stay in further therapy. CONDITION AT DISCHARGE Stable. Con Rodriguez M.D. documented in this encounter Discharge Instructions AttachmentsThe following attachments cannot be sent through Care Everywhere. Benign Positional Vertigo (Macanese)documented in this encounter Medications at Time of Discharge Medication Sig Dispensed Refills Start Date End Date CYANOCOBALAMIN, Take 1,000 mcg by 0 10/25/2010 VITAMIN B-12, ORAL mouth daily. ferrous sulfate 325 mg Take 1 tablet by mouth 0 0 11/02/2013 (65 mg iron) tablet daily. MULTIVITAMIN ORAL Take 1 tablet by mouth 0 2010 daily. fluticasone propionate Administer 2 sprays 16 g 12 04/16 (FLONASE) 50 into each nostril mcg/actuation nasal daily as needed for spray rhinitis or allergies. BIOTIN ORAL Take by mouth daily. 0 01/17/2017 CALCIUM CITRATE ORAL Take 1 tablet by mouth 0 05/201201/30/2021 2 (two) times a day. fexofenadine-pseudoeph Take 1 tablet by mouth 0 0 10/18/2015 05/14/2019 edrine (MING-D 12 2 (two) times a day. HOUR) 60-120 mg per 12 hr tablet fluticasone (FLONASE) Administer 2 sprays 0 11/2105/14/2019 50 mcg/actuation nasal into each nostril spray daily. ondansetron (ZOFRAN) 4 Take 1 tablet (4 mg 20 tablet 0 04/1505/14/2019 mg tablet total) by mouth every 8 (eight) hours as needed for nausea or vomiting for up to 10 days. cycloSPORINE Administer 1 drop into 30 vial 0 05/14/2019 08/12/2019 (RESTASIS) 0.05 % both eyes 2 (two) ophthalmic emulsion times a day. dorzolamide-timolol Administer 1 drop into 10 mL 04/1605/13/2020 (COSOPT) 22.3-6.8 the right eye daily. mg/mL ophthalmic solution meclizine (ANTIVERT) Take 1 tablet (25 mg 1 tablet 0 05/1305/22/2019 25 mg tablet total) by mouth 3 (three) times a day as needed for dizziness for up to 9 days. albuterol (ACCUNEB) Take 3 mL (2.5 mg 75 mL 9 05/14/2019 2.5 mg /3 mL nebulizer total) by nebulization solution every 6 (six) hours as needed for wheezing or shortness of breath. calcium carbonate Chew 2 tablets (400 mg 60 tablet 1 201805/14/2019 (TUMS) 500 mg (200 mg of calcium total) 2 calcium) chewable (two) times a day. tablet cycloSPORINE Administer 1 drop into 30 vial 0 05/13/2019 05/14/2019 (RESTASIS) 0.05 % both eyes every 12 ophthalmic emulsion (twelve) hours. EPINEPHrine (EPIPEN Inject 0.3 mg 0 04/10/2017 2-KRISTIN) 0.3 mg/0.3 mL intramuscularly as injection syringe needed for anaphylaxis. melatonin 3 mg tablet Take 2 tablets (6 mg 1 tablet 1 04/1605/14/2019 total) by mouth at bedtime. melatonin 3 mg tablet Take 2 tablets (6 mg 30 tablet 0 04/1601/30/2021 total) by mouth at bedtime as needed for sleep. ondansetron ODT Take 1 tablet (4 mg 20 tablet 0 05/13/2019 05/14/2019 (ZOFRAN-ODT) 4 mg total) by mouth 4 disintegrating tablet (four) times a day as needed for nausea or vomiting for up to 7 days. pantoprazole Take 1 tablet (40 mg 30 tablet 11 05/14/2019 (PROTONIX) 40 mg EC total) by mouth every tablet morning before breakfast. simethicone (MYLICON) Chew 1 tablet (80 mg 2 tablet 0 04/1605/14/2019 80 mg chewable tablet total) 4 (four) times a day as needed for flatulence. sodium chloride 0.9 % Infuse 2-10 mL into a 30 Syringe 0 05/14/2019 injection venous catheter as needed for line care. documented as of this encounter Progress Notes Faviola Guerrero P.T. - 05/13/2019 4:23 PM CDT Physical Therapy Inpatient Treatment SUBJECTIVE Patient's Name: Kathryn Leon Referring/Attending Provider: Louann Muñoz M.D. Medical Diagnosis: Vertigo [R42] Payor: MEDICARE / Plan: MEDICARE A AND B / Product Type: Medicare / Subjective: Patient reports that she is feeling better today but is still having symptoms of vertigo. Patient reports she is having difficulty with movement. Patient is resting in bed at this time. Activity Orders (From admission, onward) Start Ordered 05/12/192114 Activity: Up Ad Anne Until discontinued Comments: Encourage patient to be up for meals Ambulate as much as possible considering previous activity level and physical functioning Resume activity level following recovery from procedure and/or tests unless otherwise directed Question: Activity Level: Answer: Up Ad Anne 05/12/192125 OBJECTIVE Hallpike Jimmy testing was negative for nystagmus of patient continued to report symptoms the right side. Patient did test positive for the anterior canal bilaterally yesterday. Assessment Performed canalith repositioning for the right anterior canal x1. Patient with symptomatic during maneuvers. Patient was then position with head of bed elevated. Clinical Impression: Ms. Leon was admitted 05/12/2019 with a diagnosis of: Vertigo [R42]. Currently, patient presents with limitations including dizziness, nausea and imbalance. Education was provided regarding evaluative findings, diagnosis, prognosis, potential risks and benefits of rehabilitation interventions. Functional Goals and Timeframes: Goal 1. Patient reports symptom resolution in 1 week. Goal 2. Patient will be able to demonstrate transfers and ambulation without symptom reproduction in1 week. Plan Patient agrees with the plan of care and goals. Patient is currently under observation hospital. Patient's symptoms are improved from yesterday. Repeated canalith repositioning treatment this morning. Anticipate patient's symptoms will continue to improve with a significant reduction in symptoms anticipated by tomorrow morning. Patient was not up to ambulating at this time. Patient will continue to be monitored for symptoms of vertigo and its impact on her mobility. On-call therapist will check on patient tomorrow to see if further canalith repositioning is necessary. Upon discharge patient will follow up with the outpatient physical therapy clinic as needed for symptom resolution. Time Spent with Patient Canalith Repositioning (min): 20 min Total Treatment Time (min): 20 min Functional G-code Worksheet Faviola Guerrero P.T. , [facility], Second Floor [address] [place] [phone] Dept: [phone] documented in this encounter H&P Notes Con Rodriguez M.D. - 05/13/2019 10:36 AM CDT SUBJECTIVE REASON FOR ADMISSION Kathryn Leon is a 84 y.o. female who presents for evaluation of Vertigo [R42] HISTORY OF PRESENT ILLNESS Dizzy and slightly nauseated over the last 24 hours. Has had dry retching as well. No diarrhea. Denies being fevers. No dysuria or cough. Position change provokes or dizziness, such as head tilting The following portions of the patient's history were reviewed and updated as appropriate: allergies,current medications, family history, medical history, social history, surgical history and problem list. History reviewed. No pertinent past medical history. Past Surgical History: Procedure Laterality Date ??? [...] file Gets together: Not on file Attends sikhism service: Not on file Active member of [...] Other (see comments) cerner listed no reaction Active Home Medications Medication Sig Taking BIOTIN ORAL Take by mouth daily. Yes CALCIUM CITRATE ORAL Take 1 tablet by mouth 2 (two) times a day. Yes CYANOCOBALAMIN, VITAMIN B-12, ORAL Take 1,000 mcg by mouth daily. Yes CYCLOSPORINE (RESTASIS OPHT) Administer into both eyes every 12 (twelve) hours. Yes DORZOLAMIDE HCL/TIMOLOL MALEAT (COSOPT OPHT) Administer 1 drop into the right eye daily. Yes ferrous sulfate 325 mg (65 mg iron) tablet Take 1 tablet by mouth daily. Yes fexofenadine-pseudoephedrine (MING-D 12 HOUR) 60-120 mg per 12 hr tablet Take 1 tablet by mouth 2(two) times a day. Yes fluticasone (FLONASE) 50 mcg/actuation nasal spray Administer 2 sprays into each nostril daily. Yes meclizine (ANTIVERT) 25 mg tablet Take 1 tablet (25 mg total) by mouth 3 (three) times a day as needed for dizziness for up to 10 days. Yes MULTIVITAMIN ORAL Take 1 tablet by mouth daily. Yes omeprazole (for_PriLOSEC) 40 mg capsule Take 1 capsule by mouth daily. Yes ondansetron (ZOFRAN) 4 mg tablet Take 1 tablet (4 mg total) by mouth every 8 (eight) hours as neededfor nausea or vomiting for up to 10 days. Yes EPINEPHrine (EPIPEN 2-KRISTIN) 0.3 mg/0.3 mL injection syringe Inject 0.3 mg intramuscularly once. REVIEW OF SYSTEMS REVIEW OF SYSTEMS OBJECTIVE Blood pressure 150/68, pulse (!) 57, temperature 36.3 ??C, temperature source Temporal, resp. rate 16, height 157.5 cm, weight 70.6 kg, SpO2 99 %. PHYSICAL EXAMINATION Physical Exam Lab Results Component Value Date WBC 4.4 05/12/2019 HGB 13.9 05/12/2019 HCT 41.2 05/12/2019 MCV 90.4 05/12/2019 PLT 134 (L) 05/12/2019 Lab Results Component Value Date NA 137 05/12/2019 K 4.3 05/12/2019 CL 100 05/12/2019 CREATININE 0.77 05/12/2019 EGFR 72 05/12/2019 BUN 17 05/12/2019 ANIONGAP 10 05/12/2019 GLUCOSE 132 05/12/2019 CALCIUM 8.7 (L) 05/12/2019 Lab Results Component Value Date URINESOURCE Cath Urine 05/15/2013 CLARITYU Clear 04/06/2016 LEUKOCYTESU Negative 04/06/2016 GLUCOSEU Negative 04/06/2016 KETONESU Negative 04/06/2016 SPECGRAV 1.010 04/06/2016 UROBILINOGEN 0.2 04/06/2016 Lab Results Component Value Date ALT 81 (H) 05/12/2019 AST 44 (H) 05/12/2019 GGT 120 (H) 07/10/2015 ALKPHOS 67 05/12/2019 BILITOT 0.4 05/12/2019 No results found. ASSESSMENT / PLAN #1 Vertigo Benign positional vertigo. Will request physical therapy to evaluate and treat. May benefit from Hallpike maneuvers. Will gently hydrate with intravenous normal saline. Solu-Medrol given x1 at 125 mg. Regula once as well , 10 mg In-hospital under observation. Resuscitation status full code Expected Discharge Date: . 05/14/2019 Con Rodriguez M.D. documented in this encounter Consult Notes Delmy Rogers L.S.W. - 05/13/2019 3:47 PM CDT Discharge Planning Assessment SUBJECTIVE Referral Data Referral Source: Provider/Service Referral Reason: Discharge Planning Discharge Planning: Early screen discharge Who was present during the interview?: Patient Maintainability Engineer Services Used: No Patient Information Primary Caregiver: Self Legal Information Legal Decision Maker: Self Caregiver Information The patient is . They have three sons. One son lives in the community and two of them live in the cities. Services Requested None. OBJECTIVE Functional Status (ADLs) Behavior: Oriented Communication: Can write, Talks, Understands speaking, Understands Macanese Environmental Supports Home Environment: House Anticipated Needs/Assistive Devices None. Finance/Insurance Primary insurance: MEDICARE A AND B Secondary insurance: FOR LIFE Does the Patient have any Financial Concerns?: No Discharge Planning Barriers To Discharge: None Strengths: Support of immediate family, Support of extended family/friends Type of Residence: Private residence Support Systems: Spouse, Children Home Care Services: No Anticipated Discharge Destination: Home or Self Care Does the patient need discharge transport arranged?: No ASSESSMENT / PLAN Assessment This Grab Jack Man visited with the patient. She was lying in the recliner chair. She kept her eyes closed during the visit. She explained that she has been for 63 years. They have three sons. One son lives near by and two of them live in the cities. The patient stated that she was independentat home (inside and outside.) She does not have any adaptive equipment. The patient did not need anyresources at this time. It was discussed with the patient that staff are mandated reporters and she reported understanding. Plan The patient will be returning home with her . Signed by: Rick Dykes 05/13/2019 Faviola Geurrero P.T. - 05/12/2019 3:07 PM CDT Consults Physical Therapy Inpatient Evaluation/Treatment By co-signing this note, the provider certifies the therapy being provided to this patient is reasonable and necessary for the diagnosis or treatment of this patient. SUBJECTIVE Patient's Name: Kathryn Leon Referring/Attending Provider: Louann Muñoz M.D. Medical Diagnosis: Vertigo [R42] Payor: MEDICARE / Plan: MEDICARE A AND B / Product Type: Medicare / PERTINENT MEDICAL / SURGICAL HISTORY: Patient Active Problem List Diagnosis ??? Arthritis Rheumatoid (HCC) ??? Vertigo Past Surgical History: Procedure Laterality Date ??? [...] OF CYSTOCELE N/A 1995 Repair of cystocele Patient reports insidious onset positional vertigo when getting out of the car. Patient reports symptoms began quickly and became very intense. Patient has had a history of positional vertigo in the past. Patient presented to the emergency department via ambulance. Symptoms consistent with previous episodes of positional vertigo. Patient describing symptoms of dizziness, spinning, nausea, vomiting and imbalance. Patient feels her symptoms are constant. Activity Orders (From admission, onward) Start Ordered 05/12/192114 Activity: Up Ad Anne Until discontinued Comments: Encourage patient to be up for meals Ambulate as much as possible considering previous activity level and physical functioning Resume activity level following recovery from procedure and/or tests unless otherwise directed Question: Activity Level: Answer: Up Ad Anne 05/12/192125 OBJECTIVE Cervical range of motion is within normal limits. Hallpike Jimmy testing revealed positive nystagmus for both left and right anterior canals. Patient had a very strong nystagmus as well as nausea and vomiting. Assessment Performed canalith repositioning for the right anterior canal x1. Patient with very symptomatic during maneuvers. Patient did have vomiting. Nursing provided patient with medication for nausea. Patientwas position with head of bed elevated. Clinical Impression: Ms. Leon is a 84 y.o. who has been hospitalized 0 day(s) with an admitting diagnosis of: Vertigo [R42]. Prior to hospitalization patient was completing daily activities independently. Currently, patient presents with impairments including dizziness, nausea, vomiting and imbalance resulting in the following functional deficits: Decreased positional and activity tolerance with difficulty with transfers and ambulation. patient presents with increased fall risk. Rehab potential: Ms. Leon has good potential to achieve established physical therapy goals withinthe time frame outlined below. Education was provided regarding evaluative findings, diagnosis, prognosis, potential risks and benefits of rehabilitation interventions. Functional Goals and Timeframes: Plan Patient agrees with the plan of care and goals. PT Frequency: up to 5 treatment sessions PT Duration: 2 PT Received On Date: 05/12/2019 Requires Follow-Up: 05/13/2019 Plan for next session: Treat left anterior canal. Treatment interventions may include: Canalith repositioning a patient education. Time Spent with Patient Functional G-code Worksheet Faviola Guerrero P.T. , [facility], Second Floor [address] [place] [phone] Dept: [phone] documented in this encounter Nursing Notes Corrie Saul R.N. - 05/13/2019 5:56 PM CDT Patient discharging from Observation status at this facility to acute care status. Corrie Saul R.N. - 05/13/2019 4:55 PM CDT Problem: PAIN - ADULT Goal: PT VERBALIZES/DEMONSTRATES ADEQUATE COMFORT LEVEL OR BASELINE Outcome: Progressing Problem: SKIN/TISSUE INTEGRITY Goal: Skin/Tissue integrity maintained or improved Outcome: Progressing Problem: SAFETY ADULT Goal: Maintain a safe environment Outcome: Progressing Problem: SAFETY ADULT - RISK FOR FALL AND OR FALL INJURY Goal: Patient remains free from fall/fall injury Outcome: Progressing Shift Goals: adequate pain management, remain free from dizziness and nausea, adequate PO intake Identify possible barriers to meeting goals/advancing plan of care: dizziness with movement End of Shift Summary: At start of shift patient stated she was feeling very dizzy with movement and stated she was feeling sore in her abdomen and up into her breasts. Also stating she felt gassy. MD was notified and placed orders for Reglan once. PT worked with patient and patient requested to rest for a few hours afterwards. After resting, patient stated she was feeling a little better. Was able toeat a jello and got up to the chair. Was very unsteady getting to chair, 2 staff assist for safety and gait belt. Patient was in chair for a couple hours and upon returning to bed patient was more steady and felt less dizzy. Patient had broth and drank some tea for supper and tolerated this well. Patient overall stated she is starting to feel better. No nausea this shift noted. documented in this encounter ED Notes Yasmin Huynh P.A.David., P.A. - 05/12/2019 7:40 PM CDT SUBJECTIVE CHIEF COMPLAINT/REASON FOR VISIT Dizziness HISTORY OF PRESENT ILLNESS Assumed care this patient from Dr. Zamorano. Please see his note for history of present illness, physical examination and plan. Briefly this 84-year-old female presents to the emergency department via EMS for severe vertigo. Shedoes have a history of this and usually takes meclizine. She has also undergone physical therapy in the past for this. Dr. Zamorano evaluated the patient. He had physical therapy come down to the emergency department to try to relieve her symptoms but were only able to relieve one side. Plan initiallywas to discharge patient home however she remains symptomatic therefore the plan is to admit her to the hospital after we obtained labs. CBC, CRP, CMP were obtained. REVIEW OF SYSTEMS OBJECTIVE Initial Vitals [05/12/19 1536] Temperature Pulse Rate Heart Rate Resp Rate Blood Pressure SpO2 36.5 ??C 66 -- 20 151/56 96 % Pain Score -- PHYSICAL EXAMINATION ASSESSMENT/PLAN Impression and Plan Her vertigo continues. Her laboratory values were obtained. She will be admitted to the hospital with Dr. Muñoz. She has already been given report by . Differential Diagnoses Life threatening differential diagnosis considered include: CVA. Other differential diagnoses include: BPPV, labyrinthitis, M??ni??re's disease, vestibular neuritis, migraine, Multiple Sclerosis, Otitis media, viral syndrome as well as other etiologies. I reviewed previous medical records including lab results. ED Course as of May 12 1940 Tania May 12, [id number] Patient still feeling dizzy. Final Diagnoses: as of May 12 1940 Vertigo Care Handoff Row Name 05/12/191905 Care Handoff Type of Handoff Shift change handoff Provider's Name Yasmin Gillis P.A.-C., P.A. 06/07/192051 Saulo Zamorano III, M.D. - 05/12/2019 4:29 PM CDT SUBJECTIVE CHIEF COMPLAINT/REASON FOR VISIT Dizziness HISTORY OF PRESENT ILLNESS History provided by: Patient Dizziness Quality: Head spinning Severity: Severe Onset quality: Sudden Timing: Constant Progression: Unchanged Chronicity: Recurrent Context: bending over, eye movement, head movement and standing up Relieved by: Nothing Worsened by: Eye movement, movement, sitting upright, standing up and turning head Ineffective treatments: Medication Associated symptoms: vomiting Associated symptoms: no chest pain, no diarrhea, no nausea, no palpitations and no shortness of breath Vomiting: Quality: Bilious material Number of occurrences: Multiple Severity: Moderate Timing: Constant Progression: Unchanged Risk factors: hx of vertigo REVIEW OF SYSTEMS Constitutional: Negative for chills, fatigue and fever. HENT: Negative for congestion, ear pain, sore throat and trouble swallowing. Eyes: Negative. Respiratory: Negative for cough, shortness of breath and wheezing. Cardiovascular: Negative for chest pain, palpitations and leg swelling. Gastrointestinal: Positive for vomiting. Negative for abdominal pain, constipation, diarrhea and nausea. Endocrine: Negative for cold intolerance and heat intolerance. Genitourinary: Negative for dysuria, frequency, urgency, vaginal bleeding, vaginal discharge and vaginal pain. Musculoskeletal: Negative. Skin: Negative for color change and rash. Allergic/Immunologic: Negative. Neurological: Positive for dizziness. Hematological: Negative for adenopathy. Does not bruise/bleed easily. OBJECTIVE Initial Vitals [05/12/19 1536] Temperature Pulse Rate Heart Rate Resp Rate Blood Pressure SpO2 36.5 ??C 66 -- 20 151/56 96 % Pain Score -- PHYSICAL EXAMINATION Constitutional: She appears distressed. HENT: Head: Normocephalic and atraumatic. Mouth/Throat: Mucous membranes are moist. Eyes: Conjunctivae and lids are normal. Pupils are equal, round, and reactive to light. Right eye exhibits nystagmus. Left eye exhibits nystagmus. Periorbital area normal appearing. Neck: Normal range of motion. Neck supple. No JVD present. No neck adenopathy. Cardiovascular: Normal rate, regular rhythm, S1 normal, S2 normal and normal heart sounds. Pulses are strong and palpable. Capillary refill: takes less than 3 seconds, Pulmonary/Chest: Effort normal and breath sounds normal. There is normal air entry. Abdominal: Soft. Bowel sounds are normal. She exhibits no distension. There is no tenderness. Neurological: She is alert and oriented to person, place, and time. No cranial nerve deficit. Skin: Skin is warm, dry, intact and normal color. Nursing note and vitals reviewed. ASSESSMENT/PLAN Differential Diagnoses Life threatening differential diagnosis considered include: CVA. Other differential diagnoses include: BPPV, labyrinthitis, M??ni??re's disease, vestibular neuritis, migraine, Multiple Sclerosis, otitis media, viral syndrome as well as other etiologies. I reviewed previous medical records including lab results, radiology images/report and documentationfrom previous visits. Final Diagnoses: as of May 12 1907 Vertigo Care Handoff Row Name 05/12/191905 Care Handoff Type of Handoff Shift change handoff Provider's Name Saulo Beckman III, M.D. 05/12/191906 documented in this encounter Plan of Treatment Not on filedocumented as of this encounter Procedures Procedure Name Priority Date/Time Associated Comments Diagnosis CBC WITH DIFFERENTIAL, STAT 05/12/2019 7:08 PM Results for this B CDT procedure are i n the results section. C-REACTIVE PROTEIN STAT 05/12/2019 7:08 PM Res ults for this (CRP), S/P CDT procedure are i n the results section. COMPREHENSIVE STAT 05/12/2019 7:08 PM Results for this METABOLIC PANEL, S/P CDT procedu re are in the results section. documented in this encounter Results CRP (C-Reactive Protein) (05/12/2019 7:08 PM CDT) athologist Signature C-Reactive 2.2 <=8.0 mg/L 05/12/2019 Protein (CRP), 7:32 PM CDT S Specimen Anatomical Collection Method Collection Time Receive d Time (Source) Location / / Volume Laterality Blood (Blood, 05/12/2019 7:08 PM 05/12/20 19 7:11 Venous) CDT PM CDT Saulo Zamorano III, M.D. LAB BLOOD ADD-ON Performing Organization Address City/State/[facility] Code Phon e Number [facility]- [address] [place] [address] LAB (ABNORMAL) Comprehensive Metabolic Panel (05/12/2019 7:08 PM CDT) athologist Signature Potassium, P 4.3 3.6 - 5.2 05/12/2019 mmol/L 7:31 PM CDT Sodium, P 137 135 - 145 05/12/2019 mmol/L 7:31 PM CDT Chloride, P 100 98 - 107 05/12/2019 mmol/L 7:31 PM CDT Bicarbonate, P 27 22 - 29 05/12/2019 mmol/L 7:31 PM CDT Anion Gap, P 10 7 - 15 05/12/2019 7:31 PM CDT BUN (Blood Urea 17 6 - 21 05/12/2019 Nitrogen), P mg/dL 7:31 PM CDT Creatinine 0.77 0.59 - 05/12/2019 1.04 mg/dL 7:31 PM CDT eGFR-Black/Afric 83 >=60 05/12/2019 an Tuval[place] mL/min/BSA 7:31 PM CDT Comment: ----ADDITIONAL INFORMATION---- Estimated GFR calculated using the 2009 CKD_EPI creatinine equation. eGFR Non-Black/ 72 >=60 mL/min/BSA 7:31 PM CDT Comment: ----ADDITIONAL INFORMATION---- Estimated GFR calculated using the 2009 CKD_EPI creatinine equation. Calcium, Total, P 8.7 (L) 8.8 - 10.2 mg/dL 05/12/2019 7:31 PM CDT Glucose, P 132 70 - 140 mg/dL 05/12/2019 7:31 PM CDT Protein, Total, P 6.8 6.3 - 7.9 g/dL 05/12/2019 7:31 P M CDT Albumin, P 4.0 3.5 - 5.0 g/dL 05/12/2019 7:31 PM CDT Aspartate Aminotransferase 44 (H) 8 - 43 U/L 05/12/2019 7 :31 PM CDT (AST), P Alkaline Phosphatase, P 67 35 - 104 U/L 05/12/2019 7: 31 PM CDT Alanine Aminotransferase (ALT), 81 (H) 7 - 45 U/L 019 7:31 PM CDT P Bilirubin, Total, P 0.4 <=1.2 mg/dL 05/12/2019 7:31 PM CDT Specimen Anatomical Collection Method Collection Time Receive d Time (Source) Location / / Volume Laterality Blood (Blood, 05/12/2019 7:08 PM 05/12/20 19 7:11 Venous) CDT PM CDT Saulo Zamorano III, M.D. LAB BLOOD ADD-ON Performing Organization Address City/State/ZIP Code Phon e Number [facility]- [address] [place] [id number] [place] LAB (ABNORMAL) CBC with Differential (05/12/2019 7:08 PM CDT) [facility] Method Time Signature Hemoglobin 13.9 11.6 - 05/12/2019 15.0 g/dL 7:17 PM CDT Hematocrit 41.2 35.5 - 05/12/2019 44.9 % 7:17 PM CDT Erythrocytes 4.56 3.92 - 05/12/2019 5.13 7:17 PM CDT x10(12)/L MCV 90.4 78.2 - 05/12/2019 97.9 fL 7:17 PM CDT RBC Distrib Width 12.6 12.2 - 05/12/2019 16.1 % 7:17 PM CDT Platelet Count 134 (L) 157 - 371 05/12/2019 x10(9)/L 7:17 PM CDT Leukocytes 4.4 3.4 - 9.6 05/12/2019 x10(9)/L 7:17 PM CDT Neutrophils 3.27 1.56 - 05/12/2019 6.45 7:17 PM CDT x10(9)/L Lymphocytes 0.85 (L) 0.95 - 05/12/2019 3.07 7:17 PM CDT x10(9)/L Monocytes 0.27 0.26 - 05/12/2019 0.81 7:17 PM CDT x10(9)/L Eosinophils 0.04 0.03 - 05/12/2019 0.48 7:17 PM CDT x10(9)/L Basophils 0.01 0.01 - 05/12/2019 0.08 7:17 PM CDT x10(9)/L Specimen Anatomical Collection Method Collection Time Receive d Time (Source) Location / / Volume Laterality Blood (Blood, 05/12/2019 7:08 PM 05/12/20 19 7:11 Venous) CDT PM CDT Saulo Zamorano III, M.D. LAB BLOOD ADD-ON Performing Organization Address [facility]/State/[facility] e Number [facility]- [address] [place] [id number] [place] LAB documented in this encounter Visit Diagnoses Diagnosis Vertigo - Primary documented in this encounter Admitting Diagnoses Diagnosis Vertigo documented in this encounter Administered Medications Inactive Administered Medications - up to 3 most recent administrations Medication Order MAR Action Action Date Dose Rate Site cycloSPORINE 0.05 % ophthalmic Given 05/13/2019 9:[address] op emulsion 1 drop (RESTASIS) 1 drop, both eyes, Every 12 hours, First dose on Tania 05/12/19 at 2130 Given 05/12/2019 9:50 PM CDT 1 drop dorzolamide-timolol 22.3-6.8 mg/mL ophthalmic Given 9:43 AM CDT 1 drop solution 1 drop (COSOPT) 1 drop, right eye, Daily, First dose on Thu05/13/19 at 0900 meclizine tablet 25 mg (ANTIVERT) Given 05/12/2019 4:37 PM CDT 25 mg 25 mg, oral, Once, On Thu05/12/19 at 1600, For 1 dose meclizine tablet 25 mg (ANTIVERT) Given 05/12/2019 5:13 PM CDT 25 mg 25 mg, oral, Once, On Thu05/12/19 at 1710, For 1 dose meclizine tablet 25 mg (ANTIVERT) Given 05/13/2019 6:20 AM CDT 25 mg 25 mg, oral, 3 times daily PRN, dizziness, Starting on Thu05/12/19 at 2107, For 11 days melatonin tablet 6 mg Given 05/12/2019 11:10 PM CDT 6 mg 6 mg, oral, Daily at bedtime, First dose on Thu05/12/19 at 2315 methylPREDNISolone sod succinate (PF) Given 05/13/2019 9:51 AM C DT 125 mg injection 125 mg (SOLU-Medrol) 125 mg, intravenous, Once, On Thu05/13/19 at 0900, For 1 dose, Activate vial to a final concentration of 62.5 mg/mL metoclopramide 10 mg in NaCl 0.9% New Bag 05/13/2019 10:03 AM CDT 10 mg 208 mL/hr IVPB (REGLAN) 10 mg, intravenous, at 208 mL/hr, Administer over 15 Minutes, Once, On Thu05/13/19 at 1000, For 1 dose, Mix in 50-100mL NaCl and administer as a bolus. Protect from light. metoprolol tartrate tablet 50 mg (LOPRES SOR) Given 05/12/2019 11:10 PM CDT 50 mg 50 mg, oral, 2 times daily, First dose on Thu05/12/19 at 2315 NaCl 0.9 % bolus 1,000 mL New Bag 05/12/2019 5:58 PM CDT 1,000 mL 1000 mL/hr 1,000 mL, intravenous, at 1,000 mL/hr, Administer over 1 Hours, Once, On Thu05/12/19 at 1745, For 1 dose NaCl 0.9% with KCl 20 Rate/Dose Verify 05/13/2019 5:00 PM CDT 50 mL/h r 50 mL/hr mEq/L infusion 50 mL/hr, intravenous, Continuous, Starting on Thu05/12/19 at 2130 Rate/Dose Verify 05/13/2019 10:03 AM CDT 50 mL/hr 50 mL/hr Rate/Dose Verify 05/13/2019 6:00 AM CDT 50 mL/hr 50 mL/hr ondansetron ODT disintegrating tablet 4 mg Given 05/12/2019 4:37 PM CDT 4 mg (ZOFRAN-ODT) 4 mg, sublingual, Once, On Thu05/12/19 at 1550, For 1 dose, When splitting ODT at bedside, handle with gloves and a pill splitter to prevent moisture contact. ondansetron ODT disintegrating tablet 4 mg (ZOFRAN-ODT) 4 mg, oral, 4 times daily PRN, nausea, v omiting, Starting on Thu05/13/19 at 0852, When splitting ODT at bedside, handle wi th gloves and a pill splitter to prevent moisture contact. pantoprazole DR tablet 40 mg (PROTONIX) Given 05/13/2019 6:20 AM CDT 40 mg 40 mg, oral, Daily before breakfast, First dose on Thu05/13/19 at 0700, pantoprazole 40 mg oral daily was interchanged for omeprazole 20 or 40 mg oral daily Swallow whole. Do NOT crush, chew, or split tablet. simethicone chewable tablet 80 mg (MYLIC ON) Given 05/12/2019 11:10 PM CDT 80 mg 80 mg, oral, 4 times daily PRN, flatulence, Starting on Thu05/12/19 at 2259 sodium chloride 0.9 % injection 2-10 mL 2-10 mL, intravenous, As needed, line care, Starting o n Thu05/12/19 at 1744 sodium chloride 0.9 % injection 3 mL Given 05/13/2019 9:55 AM CDT 3 mL 3 mL, intravenous, Every 12 hours scheduled, First dose on Thu05/13/19 at 0900, Peripheral Intravenous Catheter and Rapid Infusion Catheter, when no infusion to maintain patency documented in this encounter Active and Recently Administered Medications Times are shown in CDT. Scheduled Medication Order 05/11/2019 05/12/2019 05/13/2019 cycloSPORINE 0.05 % ophthalmic emulsion 1 drop (RESTASIS) 215 (Given - Provider: Rosa Early RChelsey) 0958 (Given - Provider: Corrie Saul R.N.) 1 drop, both eyes, Every 12 hours, First dose on Thu05/12/19 at 2130 dorzolamide-timolol 22.3-6.8 mg/mL ophthalmic solution 1 drop (C OSOPT) 0943 (Given - Provider: Corrie Saul R.N.) 1 drop, right eye, Daily, First dose on Thu05/13/19 at 0900 meclizine tablet 25 mg (ANTIVERT) (COMPLETED) 1637 (Given - Provider: Faviola Wilkinson R.N.) 25 mg, oral, Once, On Thu05/12/19 at 1600, For 1 dose meclizine tablet 25 mg (ANTIVERT) (COMPLETED) 171 (Given - Provider: Faviola Wilkinson R.N.) 25 mg, oral, Once, On Thu05/12/19 at 1710, For 1 dose melatonin tablet 6 mg 0 (Given - Provider: Carol Hanks RDannNDann) 6 mg, oral, Daily at bedtime, First dose on Thu05/12/19 at 2315 methylPREDNISolone sod succinate (PF) in jection 125 mg (SOLU-Medrol) (COMPLETED) 0951 (Given - Provid er: Corrie Saul R.N.) 125 mg, intravenous, Once, On Thu 9 at 0900, For 1 dose, Activate vial to a final concentration of 62.5 mg/mL metoclopramide 10 mg in NaCl 0.9% IVPB (REGLAN) (COMPLETED) 1003 (New Bag - Provider: Corrie Saul R.N.)1018 (Stopped - Provider: Corrie Saul R.N.) 10 mg, intravenous, at 208 mL/hr, Admini ster over 15 Minutes, Once, On Thu05/13/19 at 1000, For 1 dose, Mix in 50-100mL NaCl and administer as a bolus. Protect from light. metoprolol tartrate tablet 50 mg (LOPRESSOR) (CANCELED) 2310 (Given - Provider: Mariia Hanks R.N.) 50 mg, oral, 2 times daily, First dose on Thu05/12/19 at 2315 NaCl 0.9 % bolus 1,000 mL (COMPLETED) 17 58 (New Bag - Provider: Faviola Wilkinson R.N.)1850 (Stopped - Provider: Faviola Wilkinson R.N.) 1,000 mL, intravenous, at 1,000 mL/hr, A dminister over 1 Hours, Once, On Thu05/12/19 at 1745, For 1 dose ondansetron ODT disintegrating tablet 4 mg (ZOFRAN-ODT) (COM PLETED) 1637 (Given - Provider: Faviola Wilkinson R.N.) 4 mg, sublingual, Once, On Thu05/12/19 a t 1550, For 1 dose, When splitting ODT at bedside, handle with gloves and a pill splitter to prevent moisture contact. pantoprazole DR tablet 40 mg (PROTONIX) 0620 (Given - Provider: Mariia Hanks R.N.) 40 mg, oral, Daily before breakfast, Fir st dose on Thu05/13/19 at 0700, pantoprazole 40 mg oral daily was interchanged for omeprazole 20 or 40 mg oral daily Swallow whole. Do NOT crush, chew, or split tablet. sodium chloride 0.9 % injection 3 mL 0955 (Given - Provider: Corrie Saul R.N.) 3 mL, intravenous, Every 12 hours schedu led, First dose on Thu05/13/19 at 0900, Peripheral Intravenous Catheter and Rapid Infusion Catheter, when no infusion to maintain patency Continuous Medication Order 05/11/2019 05/12/2019 05/13/2019 NaCl 0.9% with KCl 20 mEq/L infusion 215 0 (New Bag - Provider: Rosa Early R.N.)2300 (Rate/Dose Verify - Provider: Mariia Hanks R.N.) 0200 (Rate/Dose Verify - Provider: Mariia Hanks R.N.)0400 (Rate/Dose Verify - Provider: Mariia Hanks R.N.)0600 (Rate/Dose Verify - Provider: Mariia Hanks R.N.)0700 (Handoff - Provider: Corrie Saul R.N.) 50 mL/hr, intravenous, Continuous, Starting on Thu05/12/19 at 21 30 1003 (Rate/Dose Verify - Provider: Corrie Saul R.N.)1700 (Rate/Dose Verify - Provider: Corrie Saul R.N.)1758 (Stopped - Provider: Corrie Saul R.N.) PRN Medication Order 05/11/2019 05/12/2019 05/13/2019 meclizine tablet 25 mg (ANTIVERT) 0620 (Given - Provider: Mariia Hanks R.N.) 25 mg, oral, 3 times daily PRN, dizzines s, Starting on Thu05/12/19 at 2107, For 11 days ondansetron ODT disintegrating tablet 4 mg (ZOFRAN-ODT) 4 mg, oral, 4 times daily PRN, nausea, v omiting, Starting on Thu05/13/19 at 0852, When splitting ODT at bedside, handle with gloves and a pill splitter to prevent moisture contact. simethicone chewable tablet 80 mg (MYLICON) 2310 (Given - Provider: Mariia Hanks R.N.) 80 mg, oral, 4 times daily PRN, flatulence, Starting on 05/12 at 2259 sodium chloride 0.9 % injection 10 mL 10 mL, intravenous, As needed, line care , Starting Thu05/12/19 at 2115, Peripheral Intravenous Catheter and Rapid Infusion Catheter, prior to blood sampling, post blood transfusion or post blood sampling sodium chloride 0.9 % injection 2-10 mL(Linked Group 1) 2-10 mL, intravenous, As needed, line care, Starting on 05/12 at 1744 sodium chloride 0.9 % injection 3 mL 3 mL, intravenous, As needed, line care, Starting Thu05/12/19 at 2115, Prior to and following infusion and between multiple consecutive infusions: sodium chloride 0.9 % injection Linked Groups Order Group 1: Place peripheral IV: No upper extremity site restrictions (CANCELED) Upper extremity site restriction: No upp er extremity site restrictions
Quantity of PIVs requested: One
STAT, Once, Tania 05/12/19 at 1745, For 1 occurrence And sodium chloride 0.9 % injection 2-10 mLJump to med 2-10 mL, intravenous, As needed, line ca re, Starting on Tania 05/12/19 at 1744 documented in this encounter Care Teams Report Analyst Relationship Specialty Start Date End Date Elsewhere, Pcp PCP - General Family Medicine 08/26/17 01/30/21 documented as of this encounter
--- OUTSIDE RECORDS SUMMARY | 2022-05-06 13:09 | XMS_ITS | Encounter Summary ---
:1935 Author Organization [facility] Address [address] [place] [address] Care Team Providers Name Role Phone Elsewhere, Pcp Primary Care Provider Unavailable Reason for Visit Physical Therapy (Routine) - Canceled Specialty Diagnoses / Procedures Referred By Contact Refer red To Contact Diagnoses Vertigo Benign Paroxysmal Positional Bilateral Con Rodriguez M.D. [facility] Procedures PT Ongoing treatment [address] [place] [phone] Referral ID Status Reason Start Date Expiration Date Visits V isits Requested Authorized [id number] Canceled 04/18/2020 04/18/2021 99 99 Encounter Details Date Type Department Care Team Description 04/27/2020 Clinical Support Department of Con Rodriguez M.D. [id number] [phone] Vertigo Benign Rehabilitation Faviola Guerrero, P.T. [address] [phone] Paroxysmal Services in [place], [place] Bilateral [id number] [phone] Social History Tobacco Use Types Packs/Day Years Used Date Smoking Tobacco: Never Smokeless Tobacco: Never Alcohol Use Standard Drinks/Week Comments Not Currently 0 (1 standard drink = 0.6 oz pure alcoho l) Sex Assigned at Date Recorded Not on file documented as of this encounter Progress Notes Faviola Guerrero, P.T. - 04/27/2020 1:30 PM CDT Physical Therapy Outpatient Treatment Note SUBJECTIVE Patient's Name: Kathryn Leon Referring Provider: Con Rodriguez M.D. Visit Diagnosis: 1. Vertigo Benign Paroxysmal Positional Bilateral Reason for Referral: PT eval and treat: BPPV and mobility assessment Onset Date: 05/12/19 Payor: MEDICARE / Plan: MEDICARE A AND B / Product Type: Medicare / No data recorded Epic Visit Count: 4 Patient comments: Patient reported resolution of symptoms after our last session but had a return ofsymptoms last night. OBJECTIVE Pain: no pain Hallpike Jimmy was positive for nystagmus for the right posterior canal. Patient reported symptom reproduction. TREATMENT Treatment today consisted of: Performed canalith repositioning for the right posterior canal x3. Home Exercise Program/Education: No home exercises recommended at this time. Pt reports good compliance with her HEP. Contact monitoring: Therapist wore face shield, surgical mask, goggles and gloves. PPE used during therapy: Therapist was wearing the following PPE throughout entire session: surgicalmask and eye protection Patient was wearing a mask during therapy session: yes Family member/caregiver present was wearing a mask: yes Additional Staff Present During Session: no Assessment Clinical Impression: Tolerated with symptom reproduction Functional Goals and Timeframes: PT Goal #1: Patient will have symptom resolution in 1 week. PT Goal #1 Date: 04/27/20 PT Goal #2: Patient will transfer from supine to/from sit without symptom reproduction in 1 week. PT Goal #2 Date: 04/27/20 Plan Plan for next session: Patient will contact therapist if symptoms persist. Time Spent with Patient Canalith Repositioning (min): 15 min Time Calculation Total Treatment Time (min): 15 min Faviola Guerrero P.T. Department of Rehabilitation Services in [address] [phone] Dept: [phone] documented in this encounter Plan of Treatment Not on filedocumented as of this encounter Visit Diagnoses Diagnosis Vertigo Benign Paroxysmal Positional Jeff ateral documented in this encounter Care Teams Flake Or Shred Roll Operator Relationship Specialty Start Date End Date Elsewhere, Pcp PCP - General Family Medicine 08/26/17 01/30/21 documented as of this encounter
--- OUTSIDE RECORDS SUMMARY | 2022-05-06 13:09 | XMS_ITS | Encounter Summary ---
:1935 Author Organization [facility] Address [address] [place] [address] Care Team Providers Name Role Phone Elsewhere, Pcp Primary Care Provider Unavailable Reason for Referral Outpatient (Routine) - Closed Specialty Diagnoses / Procedures Referred By Contact Refer red To Contact Endocrinology Amadou Sandoval M.D., Sis Rodriguez Ph.D. [address] [place] [address] Referral ID Status Reason Start Date Expiration Date Visits Requ ested Visits Authorized [id number] Closed 07/14/2019 07/13/2020 1 1 Reason for Visit Outpatient (Routine) - Closed Specialty Diagnoses / Procedures Referred By Contact Refer red To Contact Endocrinology Diagnoses Osteoporosis Without Pathological Fracture Antonia Aldrich [place] bharati C.N.PDann [address] [place], [place] [address] Referral ID Status Reason Start Date Expiration Date Visits Requ ested Visits Authorized [id number] Closed 06/30/2019 06/29/2020 1 1 Encounter Details Date Type Department Care Team Description 07/14/2019 Comprehensive Visit Division of Amadou Sandoval Osteop orosis (Primary Dx); Endocrinology joseph Garcia M.D., Ph.D. Osteoporosis Without Pathological Fractu [place], [place] [address] [facility] [address] [place] [phone] Social History Tobacco Use Types Packs/Day Years Used Date Smoking Tobacco: Never Smokeless Tobacco: Never Alcohol Use Standard Drinks/Week Comments Not Currently 0 (1 standard drink = 0.6 oz pure alcoho l) Sex Assigned at Date Recorded Not on file documented as of this encounter Last Filed Vital Signs Vital Sign Reading Time Taken Comments Blood Pressure 147/70 07/14/2019 9:26 AM CDT Pulse 76 07/14/2019 9:26 AM CDT Temperature - - Respiratory Rate - - Oxygen Saturation - - Inhaled Oxygen Concentration - - Weight 70.5 kg (155 lb 6.8 oz) 07/14/2019 9:26 AM CDT Height 157.6 cm (5' 2.05) 07/14/2019 9:26 AM CDT Body Mass Index 28.38 07/14/2019 9:26 AM CDT documented in this encounter Consult Notes Amaodu Sandoval M.D., Ph.D. - 07/14/2019 10:00 AM CDT Referral source: Antonia Aldrich C.N.P. HISTORY This patient presents for evaluation of osteoporosis. The patient diagnosed with osteoporosis greater than 20 years ago based upon screening bone mineral density. BONE MINERAL DENSITY TESTING The performed April 27, 2019 Lumbar spine T-score -1.5 Hip T-score -2.0 Left forearm T-score -3.2 FRAX 16% for any fracture and 5% specifically for hip fracture over the next10 years There is areported comparison to previous, but it is unclear as to when the previous bone mineral density scan was performed, although it may have been in May 2017 SKELETAL IMAGING No spine films available FRACTURE AND HEIGHT LOSS HISTORY She denies any fractures as an adult. She estimates height loss at 1/2 inch MOBILITY/LIVING ENVIRONMENT/FALL RISK Patient has had no falls during the past 5 years. 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 Celiac disease was diagnosed approximately 10 years ago Weight loss - unintentional approximately 10 lb weight loss after recent episode of vertigo Tobacco use - denies Alcohol use - rare social Hypogonadism - she underwent hysterectomy without oophorectomy at age 32. She denies any history of hot flashes, so is unsure as to when she underwent actual menopause Transplantation - denies Hyperthyroidism - denies Rheumatoid arthritis - yes Other risk factors - celiac disease as noted above TREATMENT - MEDICATIONS FOR OSTEOPENIA/OSTEOPOROSIS Past treatment has included: Alendronate: She took alendronate which she believes was daily for many years, discontinuing approximately 20 years ago TREATMENT: NUTRITION/FITNESS Dietary calcium intake: She has cheese nearly daily, she has limited milk and yogurt intake. She occasionally eats ice cream Calcium and vitamin D supplementation: Supplemental calcium with vitamin-D twice daily as well as a multivitamin Activity/Exercise: She is very active with walking and being busy at her baptism. She has no structured exercise routine PERTINENT LABORATORY RESULTS Normal studies over the course of the past year include CBC Serum calcium Total alkaline phosphatase AST Serum creatinine SPEP was normal in 2013 25-hydroxyvitamin D was normal in 2014 MEDICAL HISTORY The following portions of the patient's history were reviewed and updated as appropriate: allergies,current medications, family history, medical history, social history, surgical history and problem list. PHYSICAL EXAMINATION Vitals: 07/14/19 0926 BP: 147/70 Pulse: 76 General: Appears well. Of appropriate weight. HEENT: Dental health appears good. Spine: No kyphosis. No pain to palpation along entire spine. I am able to insert 3 fingers between her superior hips and lower ribs bilaterally Gait: I do not appreciate overt imbalance. Psych: Mood and affect normal. ASSESSMENT/PLAN #1 Osteoporosis by bone mineral density testing #2 FRAX score above National Osteoporosis Foundation guideline recommendations for pharmacologic intervention The patient was provided with written and/or verbal information regarding: the importance of limiting risk for falls and heavy lifting, use of proper technique with a straight back when lifting, maintaining an active lifestyle to include skeletal loading in the form of walking or other weightbearing activities for at least an hour in total daily, and maintaining adequate calcium and vitamin D intake. Based on her osteoporosis, she warrants pharmacologic intervention. I provided with a prescription for alendronate 70 mg once weekly, discussed the proper method for taking this. I would recommend treatment for 5 years prior to consideration of a bisphosphonate holiday. If she is intolerant of oral shashi ndronate, she would be a good candidate for intravenous zoledronic acid 5 mg provided once yearly for 3 years prior to consideration of a bisphosphonate holiday. I recommended return visit to the clinic in 3 years time to evaluate for interval change. It would be useful if she could have a bone density scan performed at a local facility prior to that time. Mrs. Leon was understanding of, and in agreement with, all of the above plans. She was provided with my contact information should any questions or changes arise related to her skeletal health over the course of the next several years. Total time 50 minutes, with greater than 50% spent in counseling and coordination of care. documented in this encounter Plan of Treatment Scheduled Referrals Name Type Priority Associated Order Schedule Diagnoses Endocrinology office Outpatient Referral Routine Expected: visit (clinic) 07/07/2022 (Approximate), Expires: 07/14/2023 documented as of this encounter Visit Diagnoses Diagnosis Osteoporosis - Primary Osteoporosis Without Pathological Fractu re documented in this encounter Care Teams Table Maker Relationship Specialty Start Date End Date Elsewhere, Pcp PCP - General Family Medicine 08/26/17 01/30/21 documented as of this encounter
--- OUTSIDE RECORDS SUMMARY | 2022-05-06 13:09 | XMS_ITS | Encounter Summary ---
:1935 Author Organization [facility] Address [address] [place] [address] Care Team Providers Name Role Phone Elsewhere, Pcp Primary Care Provider Unavailable Encounter Details Date Type Department Care Team Description 11/06/2020 Community Orders [facility] HakSuze, Neuropa thy Tibial [facility] [place]ER GOLD LEAF, C.N.P., Right (Otilia elma Dx) [facility] R.N [address] [place] [address] Dr RENTERIA [phone] [place] [address] Social History Tobacco Use Types Packs/Day Years Used Date Smoking Tobacco: Never Smokeless Tobacco: Never Alcohol Use Standard Drinks/Week Comments Not Currently 0 (1 standard drink = 0.6 oz pure alcoho l) Sex Assigned at Date Recorded Not on file documented as of this encounter Plan of Treatment Not on filedocumented as of this encounter Visit Diagnoses Diagnosis Neuropathy Tibial Right - Primary documented in this encounter Additional Health Concerns Infection Onset Date Last Indicated Resolved Time COVID19 Pending 01/29/2021 01/29/2021 01/29/2021 11:29 PM CDT documented as of this encounter Care Teams Inspector Tubes Relationship Specialty Start Date End Date Elsewhere, Pcp PCP - General Family Medicine 01/31/21 documented as of this encounter
--- OUTSIDE RECORDS SUMMARY | 2022-05-06 13:09 | XMS_ITS | Encounter Summary ---
:1935 Author Organization [facility] Address [address] [place] [address] Care Team Providers Name Role Phone Elsewhere, Pcp Primary Care Provider Unavailable Reason for Visit Reason Comments Dizziness Encounter Details Date Type Department Care Team Description 01/29/2021 Emergency [facility] Jd Bobby, Vertigo (Primary Dx) Department P.A.-C. [id number] [address] [place], [place] [phone] (Wo rk) Social History Tobacco Use Types Packs/Day Years Used Date Smoking Tobacco: Never Smokeless Tobacco: Never Alcohol Use Standard Drinks/Week Comments Not Currently 0 (1 standard drink = 0.6 oz pure alcoho l) Sex Assigned at Date Recorded Not on file documented as of this encounter Last Filed Vital Signs Vital Sign Reading Time Taken Comments Blood Pressure 159/75 01/29/2021 11:15 PM CDT Pulse 78 01/29/2021 11:30 PM CDT Temperature 36.2 ??C (97.2 ??F) 01/29/2021 8:50 PM CDT Respiratory Rate 15 01/29/2021 11:30 PM CDT Oxygen Saturation 98% 01/29/2021 11:30 PM CDT Inhaled Oxygen Concentration - - Weight 75.6 kg (166 lb 10.7 oz) 01/29/2021 8:50 PM CDT Height 157.5 cm (5' 2) 01/29/2021 8:50 PM CDT Body Mass Index 30.48 01/29/2021 8:50 PM CDT documented in this encounter Medications at Time of [...] mg DR capsule daily. meclizine (ANTIVERT) Take 1 tablet (25 mg 30 tablet 0 01/3102/10/2021 25 mg tablet total) by mouth 3 (three) times a day as needed for dizziness for up to 10 days. albuterol (ACCUNEB) as needed. 0 05/14/201901/30 2.5 [...] tablet (vertigo). documented as of this encounter ED Notes Jd Bobby P.A.-C. - 01/29/2021 9:55 PM CDT SUBJECTIVE CHIEF COMPLAINT/REASON FOR VISIT Dizziness HISTORY OF PRESENT ILLNESS 85-year-old female with history of significant vertigo (BPPV) requiring previous hospitalization presents the ER for sudden onset of vertigo. Patient states that she was seated talking on the phone when the symptoms began suddenly and have persisted since that time. She states this feels just like previous episodes and denies new or changes symptoms compared to before. She denies chest pain, shortness of breath, numbness, tingling, paresthesias, or focal neurologic weakness/deficit. Denies any recent illness or concerns for COVID exposure. Symptoms are worse when patient tries to move her head, or lies flat. She has not found anything else that seems to make the symptoms better or worse. She states the symptoms are so severe that she is unable to walk. REVIEW OF SYSTEMS Constitutional: Negative for appetite change and fever. HENT: Negative for ear pain, rhinorrhea and sore throat. Eyes: Negative for visual disturbance. Respiratory: Negative for cough, shortness of breath and wheezing. Cardiovascular: Negative for chest pain. Gastrointestinal: Negative for abdominal pain, diarrhea and vomiting. Genitourinary: Negative for dysuria and frequency. Musculoskeletal: Negative for back pain. Skin: Negative for rash. Neurological: Positive for dizziness and loss of balance. Negative for tremors, seizures, syncope, facial asymmetry, speech difficulty, weakness, numbness and headaches. Hematological: Negative for adenopathy. OBJECTIVE Initial Vitals Temperature Pulse Rate Heart Rate Resp Rate Blood Pressure SpO2 01/29/21204901/29/21204901/29/21204901/29/21204901/29/21 2100 01/29/212049 36.2 ??C 72 72 14 (!) 170/73 97 % Pain Score 01/29/212049 0 - No pain PHYSICAL EXAMINATION Constitutional: Nursing note and vitals [...] abdominal tenderness. Musculoskeletal: Cervical back: Neck supple. Neurological: Alert and oriented to person, place, and time. She has normal sensation, normal strength and intact cranial nerves. Displays normal reflexes. GCS eye subscore is 4. GCS verbal subscore is5. GCS motor subscore is 6. Normal speech. Lateral nystagmus is present. Symptoms are worse with Bates-Hallpike test. Skin: Skin is warm. ASSESSMENT/PLAN IMPRESSION AND PLAN 85-year-old female with previous significant BPPV requiring hospitalization presents the ER with return of symptoms that began immediately prior to arrival. Patient has received meclizine, Zofran, and IV fluids in the ER without resolution of symptoms. Based on her history, physical exam, and workup in the ER I do not suspect acute stroke. Her exam is consistent with BPPV and appears to be consistentwith previous episodes. Patient has undergone head imaging previously and repeating the imaging thisevening would not be helpful for the patient. We discussed the possibility of attempting treatment at home which patient refuses. I attempted admission at this facility, but no beds are available. We discussed transfer to another facility and patient requests transfer to [place]. No beds are available at [place] or any other hospital between here in [place]. Spoke with transfer center who arranged for transfer to [place]. Dr. Cole accepted the patient for admission to [facility]. Patient is stable at time of transfer. She is transferred via ground S ambulance. I reviewed previous medical records including documentation from previous visits, radiology images/report, EKG images/reports and lab results. Lab Result Review comments: Within acceptable limits. Final Diagnoses: as of Jan 29 2251 Vertigo Jd Bobby, PDannAElida. 01/29/212250 documented in this encounter Plan of Treatment Not on filedocumented as of this encounter Procedures Procedure Name Priority Date/Time Associated Diagnosis Comme nts IFLU A, B, SARS STAT 01/29/2021 10:57 PM Resul ts for this COV-2, PCR, RAPID,V CDT procedur e are in the results section. CBC WITH STAT 01/29/2021 9:15 PM Results f or this DIFFERENTIAL, B CDT procedure ar e in the results section. BASIC METABOLIC STAT 01/29/2021 9:15 PM Result s for this PANEL, S/P CDT procedure are i n the results section. documented in this encounter Results Influenza A/B, SARS CoV-2, PCR, Rapid, Varies Symptomatic (01/29/2021 10:57 PM CDT) [facility] Method Time Signature Influenza A, Negative Negative 01/29/2021 [facility] PCR, Rapid, V 11:29 PM CDT Influenza B, Negative Negative 01/29/2021 [facility] PCR, Rapid, V 11:29 PM CDT SARS CoV-2, Undetected Undetected 01/29/2021 [facility] PCR, Rapid, V 11:29 PM CDT Comment: ----ADDITIONAL INFORMATION---- This RT-PCR test was performed using the Sai SARS-CoV-2 and Influenza A/B Reagent assay from [employer], which has received Emergency Use Authori zation(EUA) by the U.S. Food and Drug Administration . Fact sheets for this Emergency Use Autho rization (EUA) assay can be found at the following link s: For Healthcare Providers: https://www.fda.gov/media/598093/downloa d For Patients: https://www.fda.gov/media/117494/downloa d Infl A/B, SARS CoV-2, PCR, Swab, Nasopharynx 01/29 11:29 PM CDT [facility] Source Specimen Anatomical Collection Method Collection Time Receive d Time (Source) Location / / Volume Laterality Varies 01/29/2021 10:57 01/29/2021 (Nasopharynx) PM CDT 11:01 PM CDT Jd Bobby P.A.-C. LAB MICROBIOLOGY - GENERAL O RDERABLES Performing Organization Address City/State/ZIP Code Phon e Number [facility]- [address] [place] [id number] [place] [address] [address] (ABNORMAL) Basic Metabolic Panel (01/29/2021 9:15 PM CDT) P athologist Signature Potassium, P 4.2 3.6 - 5.2 01/29/2021 [facility] mmol/L 9:55 PM CDT Sodium, P 138 135 - 145 01/29/2021 [facility] mmol/L 9:55 PM CDT Chloride, P 103 98 - 107 01/29/2021 [facility] mmol/L 9:55 PM CDT Bicarbonate, P 27 22 - 29 01/29/2021 [facility] mmol/L 9:55 PM CDT Anion Gap, P 8 7 - 15 01/29/2021 CN[facility] 9:55 PM CDT BUN (Blood Urea 26 (H) 6 - 21 01/29/2021 [facility] Nitrogen), P mg/dL 9:55 PM CDT Creatinine 0.95 0.59 - 01/29/2021 [facility] 1.04 mg/dL 9:55 PM CDT eGFR-Black/Afri 64 >=60 01/29/2021 [facility] can Guamanian mL/min/BSA 9:55 PM CDT Comment: ----ADDITIONAL INFORMATION---- Estimated GFR calculated using the 2009 CKD_EPI creatinine equation. eGFR Non-Black/ 56 (L) >=60 mL/min/BSA 01/29/2021 9:55 PM CDT [facility] [place] Comment: ----ADDITIONAL INFORMATION---- Estimated GFR calculated using the 2009 CKD_EPI creatinine equation. Calcium, Total, P 9.7 8.8 - 10.2 mg/dL 01/29/2021 9:55 PM CDT CNFL Glucose, P 139 70 - 140 mg/dL 01/29/2021 9:55 PM CDT C NFL Specimen Anatomical Collection Method Collection Time Receive d Time (Source) Location / / Volume Laterality Blood (Blood, 01/29/2021 9:15 PM 01/30/20 9:42 Venous) CDT PM CDT Jd Bobby P.A.-C. LAB BLOOD ADD-ON Performing Organization Address City/State/ZIP Code Phon e Number [facility]- [address] [place] [id number] [place] [address] System [address] (ABNORMAL) CBC with Differential, Blood (01/29/2021 9:15 PM CDT) [facility] Method Time Signature Hemoglobin 13.3 11.6 - 01/29/2021 [facility] 15.0 g/dL 9:53 PM CDT Hematocrit 38.6 35.5 - 01/29/2021 [facility] 44.9 % 9:53 PM CDT Erythrocytes 4.23 3.92 - 01/29/2021 [facility] 5.13 9:53 PM CDT x10(12)/L MCV 91.3 78.2 - 01/29/2021 [facility] 97.9 fL 9:53 PM CDT RBC Distrib Width 12.6 12.2 - 01/29/2021 [facility] 16.1 % 9:53 PM CDT Platelet Count 151 (L) 157 - 371 01/29/2021 [facility] x10(9)/L 9:53 PM CDT Leukocytes 3.8 3.4 - 9.6 01/29/2021 [facility] x10(9)/L 9:53 PM CDT Neutrophils 2.19 1.56 - 01/29/2021 CNFL 6.45 9:53 PM CDT x10(9)/L Lymphocytes 1.15 0.95 - 01/29/2021 CN[facility] 3.07 9:53 PM CDT x10(9)/L Monocytes 0.35 0.26 - 01/29/2021 [facility] 0.81 9:53 PM CDT x10(9)/L Eosinophils 0.11 0.03 - 01/29/2021 [facility] 0.48 9:53 PM CDT x10(9)/L Basophils 0.01 0.01 - 01/29/2021 [facility] 0.08 9:53 PM CDT x10(9)/L Specimen Anatomical Collection Method Collection Time Receive d Time (Source) Location / / Volume Laterality Blood (Blood, 01/29/2021 9:15 PM 01/30/20 9:42 Venous) CDT PM CDT Jd Bobby P.A.-C. LAB BLOOD ADD-ON Performing Organization Address City/State/ZIP Code Phon e Number [facility]- [address] [place] [phone] [place] [address] System [address] documented in this encounter Visit Diagnoses Diagnosis Vertigo - Primary documented in this encounter Administered Medications Inactive Administered Medications - up to 3 most recent administrations Medication Order MAR Action Action Date Dose Rate Site meclizine tablet 50 mg (ANTIVERT) Given 01/29/2021 9:02 PM CDT 50 mg 50 mg, oral, Once, On Thu01/29/21 at 2051, For 1 dose NaCl 0.9 % bolus 500 mL New Bag 01/29/2021 9:02 PM CDT 500 mL 500 mL/hr 500 mL, intravenous, at 500 mL/hr, Administer over 1 Hours, Once, On Thu01/29/21 at 2051, For 1 dose ondansetron (PF) injection 4 mg (ZOFRAN) Given 01/29/2021 9:09 PM CDT 4 mg 4 mg, intravenous, Once, On Thu01/29/21 at 2106, For 1 dose documented in this encounter Active and Recently Administered Medications Times are shown in CDT. Scheduled Medication Order 01/27/2021 01/28/2021 01/29/2021 meclizine tablet 50 mg (ANTIVERT) (COMPLETED) 2101 (Given - Provider: Annmarie Mccoy R.N.) 50 mg, oral, Once, On Thu01/29/21 at 2051, For 1 dose NaCl 0.9 % bolus 500 mL (COMPLETED) 2101 (New Bag - Provider: Annmarie Mccoy R.N.)2157 (Stopped - Provider: Annmarie Mccoy R.N.) 500 mL, intravenous, at 500 mL/hr, Admin ister over 1 Hours, Once, On Thu01/29/21 at 2051, For 1 dose ondansetron (PF) injection 4 mg (ZOFRAN) (COMPLETED) 2108 (Given - Provider: Duyne Maradiaga R.N.) 4 mg, intravenous, Once, On Thu01/29/21 at 2106, For 1 dose documented in this encounter Additional Health Concerns Infection Onset Date Last Indicated Resolved Time COVID19 Pending 01/29/2021 01/29/2021 01/29/2021 11:29 PM CDT documented as of this encounter Care Teams Plugger Worker Relationship Specialty Start Date End Date Elsewhere, Pcp PCP - General Family Medicine 08/26/17 01/30/21 documented as of this encounter
--- OUTSIDE RECORDS SUMMARY | 2022-05-06 13:09 | XMS_ITS | Encounter Summary ---
:1935 Author Organization [facility] Address [address] [place] [address] Care Team Providers Name Role Phone Elsewhere, Pcp Primary Care Provider Unavailable Reason for Visit Reason Comments Med Refill Encounter Details Date Type Department Care Team Description 05/28/2020 Refill Division of Endocrinology in Arin Sandoval M.D., Med Refill [place], [place] Ph.D. [address] [place] [address] [place] [phone] [place] [address] [phone] (Wo rk) Social History Tobacco Use Types [...] on filedocumented in this encounter Care Teams Insurance Underwriter Relationship Specialty Start Date End Date Elsewhere, Pcp PCP - General Family Medicine 08/26/17 01/30/21 documented as of this encounter
--- OUTSIDE RECORDS SUMMARY | 2022-05-06 13:09 | XMS_ITS | Encounter Summary ---
:1935 Author Organization [facility] Address [address] [place] [address] Care Team Providers Name Role Phone Elsewhere, Pcp Primary Care Provider Unavailable Reason for Visit Physical Therapy (Routine) - Canceled Specialty Diagnoses / Procedures Referred By Contact Refer red To Contact Diagnoses Vertigo Benign Paroxysmal Positional Bilateral Con Rodriguez M.D. [facility] Procedures PT Ongoing treatment [address] [place] [phone] Referral ID Status Reason Start Date Expiration Date Visits V isits Requested Authorized [id number] Canceled 04/18/2020 04/18/2021 99 99 Encounter Details Date Type Department Care Team Description 04/19/2020 Clinical Support Department of Con Rodriguez M.D. [id number] [phone] Vertigo Benign Rehabilitation Faviola Guerrero, P.T. [address] [phone] Paroxysmal Services in [place], [place] Bilateral [address] [phone] Social History Tobacco Use Types Packs/Day Years Used Date Smoking Tobacco: Never Smokeless Tobacco: Never Alcohol Use Standard Drinks/Week Comments Not Currently 0 (1 standard drink = 0.6 oz pure alcoho l) Sex Assigned at Date Recorded Not on file documented as of this encounter Progress Notes Faviola Guerrero, P.T. - 04/19/2020 10:30 AM CDT Physical Therapy Outpatient Treatment Note SUBJECTIVE Patient's Name: Kathryn Leon Referring Provider: Con Rodriguez M.D. Visit Diagnosis: 1. Vertigo Benign Paroxysmal Positional Bilateral Reason for Referral: PT eval and treat: BPPV and mobility assessment Onset Date: 05/12/19 Payor: MEDICARE / Plan: MEDICARE A AND B / Product Type: Medicare / No data recorded Epic Visit Count: 3 Patient comments: Patient reports she is better but still has some symptoms of vertigo. OBJECTIVE Pain: no complaint of pain [place] test revealed nystagmus for the right anterior canal. TREATMENT Treatment today consisted of: Canalith repositioning for the right anterior canal x 2. Home Exercise Program/Education: no home program. Pt reports good compliance with her HEP. Contact monitoring: PPE used during therapy: Therapist was wearing the following PPE throughout entire session: surgicalmask and eye protection Patient was wearing a mask during therapy session: yes Additional Staff Present During Session: no Assessment Clinical Impression: tolerated session with symptom reproduction. Functional Goals and Timeframes: PT Goal #1: Patient will have symptom resolution in 1 week. PT Goal #1 Date: 04/27/20 PT Goal #2: Patient will transfer from supine to/from sit without symptom reproduction in 1 week. PT Goal #2 Date: 04/27/20 Plan Plan: Patient will contact therapist if symptoms do not resolve. Time Spent with Patient Canalith Repositioning (min): 15 min Time Calculation Total Treatment Time (min): 15 min Faviola Guerrero P.T. Department of Rehabilitation Services in [address] [phone] Dept: [phone] documented in this encounter Plan of Treatment Not on filedocumented as of this encounter Visit Diagnoses Diagnosis Vertigo Benign Paroxysmal Positional Jeff ateral documented in this encounter Care Teams Tin Plater Relationship Specialty Start Date End Date Elsewhere, Pcp PCP - General Family Medicine 08/26/17 01/30/21 documented as of this encounter
--- OUTSIDE RECORDS SUMMARY | 2022-05-06 13:09 | XMS_ITS | Encounter Summary ---
:1935 Author Organization [facility] Address [address] [place] [id number] Care Team Providers Name Role Phone Elsewhere, Pcp Primary Care Provider Unavailable Encounter Details Date Type Department Care Team Description 10/16/2020 Orders Only RST PCP [facility] Rosa Reid M.D. [address] [place] [phone] (Wo rk) Social History Tobacco Use Types [...] on filedocumented in this encounter Care Teams Deblocker Relationship Specialty Start Date End Date Elsewhere, Pcp PCP - General Family Medicine 08/26/17 01/30/21 documented as of this encounter
--- OUTSIDE RECORDS SUMMARY | 2022-05-06 13:10 | XMS_ITS | Encounter Summary ---
:1935 Author Organization [facility] Address [address] [place] [address] Care Team Providers Name Role Phone Elsewhere, Pcp Primary Care Provider Unavailable Encounter Details Date Type Department Care Team Description 08/10/2018 Clinical Communication [facility] Prasanth Galicia L.P.N. 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
--- OUTSIDE RECORDS SUMMARY | 2022-05-06 13:10 | XMS_ITS | Encounter Summary ---
:1935 Author Organization [facility] Address [address] [place] [address] Care Team Providers Name Role Phone Elsewhere, Pcp Primary Care Provider Unavailable Encounter Details Date Type Department Care Team Description 08/26/2017 Nurse Only Department of Family [facility] Cielo victor M.D. [address] [place] [phone] [facility] St[facility] Calder[facility] L[facility], in [address] [phone] Social History Tobacco Use Types Packs/Day Years Used Date Smoking Tobacco: Never Sex Assigned at Date Recorded Not on file documented as of this encounter Plan of Treatment Not on filedocumented as of this encounter Visit Diagnoses Diagnosis Immunization Only - Primary documented in this encounter Care Teams Track Announcer Relationship Specialty Start Date End Date Elsewhere, Pcp PCP - General Family Medicine 08/26/17 01/30/21 documented as of this encounter
--- OUTSIDE RECORDS SUMMARY | 2022-05-06 13:10 | XMS_ITS | Encounter Summary ---
:1935 Author Organization [facility] Address [address] [place] [address] Care Team Providers Name Role Phone Elsewhere, Pcp Primary Care Provider Unavailable Reason for Visit Reason Comments Nurse Visit Appointment Request (Routine) - Closed Specialty Diagnoses / Procedures Referred By Contact Refer red To Contact Family Medicine Referral ID Status Reason Start Date Expiration Date Visits Requ ested Visits Authorized [id number] Closed 07/28/2018 07/28/2019 1 Encounter Details Date Type Department Care Team Description 08/11/2018 Nurse Only Department of [facility] Antwan Rene M.D. [address] [place] [phone] Nurse Visit Medicine, [place] Leah Batista L.P.N. [address] [place] [phone] Clinic, in [address] [phone] Social History Tobacco Use Types Packs/Day Years Used Date Smoking Tobacco: Never Sex Assigned at Date Recorded Not on file documented as of this encounter Plan of Treatment Not on filedocumented as of this encounter Visit Diagnoses Not on filedocumented in this encounter Care Teams Rolfer Relationship Specialty Start Date End Date Elsewhere, Pcp PCP - General Family Medicine 08/26/17 01/30/21 documented as of this encounter
--- OUTSIDE RECORDS SUMMARY | 2022-05-06 13:10 | XMS_ITS | Encounter Summary ---
:1935 Author Organization [facility] Address [address] [place] [id number] Care Team Providers Name Role Phone Unavailable Primary Care Provider Unavailable Encounter Details Date Type Department Care Team Description 01/17/2017 Hospital Encounter HX [facility] ED Lynnette Betts S, P.A.-C. [address] [place] [address] [phone] (Wo [phone]) Social History Tobacco Use Types Packs/Day Years Used Date Smoking Tobacco: Never Sex Assigned at Date Recorded Not on file documented as of this encounter Last Filed Vital Signs Vital Sign Reading Time Taken Comments Blood Pressure 111/56 01/17/2017 8:15 PM CDT Pulse 64 01/17/2017 9:06 PM CDT Temperature - - Respiratory Rate 20 01/17/2017 8:15 PM CDT Oxygen Saturation - - Inhaled Oxygen Concentration - - Weight - - Height - - Body Mass Index - - documented in this encounter Discharge Summaries Blake Gamino, RDannN. - 01/18/2017 12:30 AM CDT ED Discharge Instructions [address] [address] Name: KATHRYN LEON Date of : 1935 12:00 AM Visit Date: 01/17/2017 8:09 PM [facility] Number: [id number] Address: [address] [place] [phone] Primary Care Provider: PCP, ELSEWHERE IMPORTANT: [facility] in [place] would like to thank you for allowing us to assist you with your healthcare needs. The following includes patient education materials and informationregarding your injury/illness. Diagnosis: Pain Abdominal L Lower Quadrant (LLQ) Follow-Up Instructions: With: Address: When: Return to Emergency Department Within As Needed Comments: If symptoms worsen. With: Address: When: ELSEWHERE PCP Within As Needed Your Upcoming Appointments: Date Time Location Provider No Appointments found Patient Education Materials: Abdominal Pain Abdominal pain is pain in the stomach or intestinal area. Everyone has this pain from time to time. In many cases it goes away on its own. But abdominal pain can sometimes be due to a serious problem, such as appendicitis. So its important to know when to seek help. Causes of abdominal pain There are many possible causes of abdominal pain. Common causes in adults include: ?? Constipation, diarrhea, or gas ?? GERD (movement of stomach acid into the esophagus, also known as acid reflux or heartburn) ?? Peptic ulcer (a sore in the lining of the stomach or small intestine) ?? Inflammation of the gallbladder or pancreas ?? Gallstones or kidney stones ?? Hernia (bulging of an internal organ through a muscle or other tissue) ?? Urinary tract infections ?? In women, menstrual cramps, fibroids, or endometriosis of the uterus ?? Inflammation or infection of the intestines Diagnosing the cause of abdominal pain Your health care provider will examine you to help find the cause of your pain. If needed, tests will be ordered. Because abdominal pain has so many possible causes, it can be hard to discover the reason for the pain. Giving details about your pain can help. Be ready to tell your health care provider where and when you feel the pain and what makes it better or worse. Also mention whether you have other symptoms such as fever, tiredness, nausea, vomiting, or changes in bathroom habits. Treating abdominal pain Certain causes of pain, such as appendicitis or a bowel obstruction, need emergency treatment. Otherproblems can be treated with rest, fluids, or medications. Your health care provider can give you specific instructions for treatment or self-care based on the cause of your pain. If you are have vomiting or diarrhea, sip water or other clear fluids. When you are ready to eat solid foods again, start with small amounts of [id number], low-fat foods, such as applesauce, toast,or crackers. When to call the doctor Call 911 or go to the hospital right away if you: ?? Cant pass stool and are vomiting ?? Are vomiting blood or have black tarry diarrhea ?? Also have chest, neck, or shoulder pain ?? Feel like you are about to pass out ?? Have pain in your shoulder blades with nausea ?? Have sudden, excruciating abdominal pain ?? Have new, severe pain unlike any you have felt before ?? Have a belly that is rigid, hard, and tender to touch Call your doctor if you have: ?? Pain for more than 5 days ?? Bloating for more than 2 days ?? Diarrhea for more than 5 days ?? Fever of 101?F or higher ?? Pain that continues to worsen ?? Unexplained weight loss ?? Continued lack of appetite ?? Blood in the stool How to prevent abdominal pain Here are some tips to help prevent abdominal pain: ?? Eat smaller amounts of food at one time. ?? Avoid greasy, fried, or other high-fat foods. ?? Avoid foods that give you gas. ?? Exercise regularly. ?? Drink plenty of fluids. To help prevent symptoms of gastroesophageal reflux (GERD): ?? Quit smoking. ?? Lose excess weight. ?? Finish eating at least 2 hours before you go to bed or lie down. ?? Elevate the head of your bed. ?? [id number] [place] [address]. All rights reserved. This information is not intended as a substitute for professional medical care. Always follow your healthcare professional's instructions. Consider Using Patient Online Services Patient Online Services is a secure online and Mobile application that lets you: ?? View lab and test results ?? View portions of your medical record including clinical notes, immunizations and discharge summaries ?? Request an appointment or medication refill ?? Review your appointment schedule ?? Send secure messages to your care team Its easy to create an account if you dont have one. Go to [email or web address] and click on Create Your Account. Then, follow the directions to complete the online form. Youll be asked for your [facility] number which you can find at the top of this document. ED Tests and Procedures: Order Status Basic Metabolic Panel Completed CBC (includes Auto Differential) Completed Lactic Acid Completed CT Abdomen/Pelvis w/ contrast Completed Automated Diff-5 Part Completed Discharge Prescriptions & Home Medications: Medication/Strength Dose Route Frequency Indications/Special Instructions/Comments/Notes oxyCODONE (oxyCODONE 5 mg oral tablet) 5 mg Oral every 6 hours as needed for pain biotin (biotin) Oral once a day omeprazole (omeprazole 40 mg oral delayed release capsule) 40 mg Oral once a day gabapentin (gabapentin 300 mg oral capsule) 900 mg Oral once a day fluticasone nasal (Flonase 50 mcg/inh nasal spray) 2 spray(s) Nostrils(Both) once a day fexofenadine-pseudoephedrine (Rochelle-D 12 Hour 60 mg-120 mg oral tablet, extended release) 1 tab(s)Oral two times a day [employer] [phone] estradiol topical (Vagifem 10 mcg vaginal tablet) 10 mcg Vaginal 2 times a week Member No [phone] meclizine (meclizine 12.5 mg oral tablet) 1-2 tab(s) Oral three times a day as needed for Dizziness ferrous sulfate (ferrous sulfate 325 mg (65 mg elemental iron) oral tablet) 325 mg Oral once a day calcium citrate (Citracal) 1tab two times a day cycloSPORINE ophthalmic (Restasis) one drop Eyes(Both) every 12 hours cyanocobalamin (Vitamin B-12) 1,000 mcg Oral once a day multivitamin (Multiple Vitamins oral tablet) 1 tab(s) Oral once a day dorzolamide-timolol ophthalmic (Cosopt ophthalmic solution) 1 drop(s) once a day in the right eye only Comment: Attention: If you have any medications at home not on this list, DO NOT take them until you contact your provider for clarification. Give a copy of your medication list to your primary care provider. Update your medication list any time medications or doses are changed and carry your medication list at all times in case of emergency. IMPORTANT: We examined and treated you today on an emergency basis only. This was not a substitute for, or an effort to provide, complete medical care. In most cases, you must let your doctor check youagain. Tell your doctor about any new or lasting problems. We cannot recognize and treat all injuries or illnesses in one Emergency Department visit. If you had special tests, such as EKG's or X- rays, we will review them again within 24 hours. We will call you if there are any new suggestions. Please follow the instructions above carefully. If you are being transferred to another facility your followup plan of care will be determined by the receiving facility. If you are a patient that is being discharged from the Emergency Department after receiving narcotics or other medications that may impair your judgment you may be a risk to yourself or others if you operate a motor vehicle. We recommend that you arrange a ride home with a responsible democrat. CAROLYN Strange MARY CATHERINE , or responsible democrat have received this information and my questions have been answered. I have discussed any challenges I see with this plan with the nurse or physician. Patient Signature or Responsible Alliance Party/Relationship Date Time Provider Signature Date Time IMPORTANT: We examined and treated you today on an emergency basis only. This was not a substitute for, or an effort to provide, complete medical care. In most cases, you must let your doctor check youagain. Tell your doctor about any new or lasting problems. We cannot recognize and treat all injuries or illnesses in one Emergency Department visit. If you had special tests, such as EKG's or X- rays, we will review them again within 24 hours. We will call you if there are any new suggestions. Please follow the instructions above carefully. If you are being transferred to another facility your followup plan of care will be determined by the receiving facility. If you are a patient that is being discharged from the Emergency Department after receiving narcotics or other medications that may impair your judgment you may be a risk to yourself or others if you operate a motor vehicle. We recommend that you arrange a ride home with a responsible democrat. CAROLYN Strange MARY CATHERINE or responsible democrat have received this information and my questions have been answered. I have discussed any challenges I see with this plan with the nurse or physician. Patient Signature or Responsible Alliance Party/Relationship Date Time Provider Signature Date Time Source: Mark[employer] Document Id: [id number] Blake Gamino R.N. - 01/18/2017 12:30 AM CDT ED Depart Summary [facility] Emergency Department Clinical Discharge Summary PERSON INFORMATION Name KATHRYN LEON Age 81 Years 1935 12:00 AM Sex Female Language Zambian PCP PCP, ELSEWHERE Marital Status Visit Id Visit Reason Abdominal pain; Abdominal pain Specialty Enc Type Emergency Med Service Emergency Medicine Referred by Track Group [facility] ED Discharge 01/17/2017 11:43 PM Tracking Id [id number] Checkout 01/17/2017 11:43 PM Checkin 01/17/2017 8:09 PM Acuity 3 -Urgent Dispo Type * Discharged to Home or Self Care Arrival 01/17/2017 8:09 PM Reg Status Complete LOS 000 03:34 Address: [address] [place] [phone] Comment: PROVIDER INFORMATION Provider Role Provider Contact Time GERMAN BETTS PA-C ED Provider 01/17/17 20:34 BLAKE GAMINO CHEMICAL DEPENDENCY NURSE Nurse 01/17/17 20:44 DIAGNOSIS Pain Abdominal L Lower Quadrant (LLQ) Comment: PATIENT EDUCATION INFORMATION Instructions: Abdominal Pain, Adult Follow up: With: Address: When: Return to Emergency Department Within As Needed Comments: If symptoms worsen. With: Address: When: ELSEWHERE PCP Within As Needed Source: [facility] POWERCHART Document Id: [id number] documented in this encounter Medications at Time of Discharge Medication Sig Dispensed Refills Start Date End Date CYANOCOBALAMIN, VITAMIN Take 1,000 mcg by 0 10/25 B-12, ORAL mouth daily. ferrous sulfate 325 mg Take 1 tablet by 0 014 (65 mg iron) tablet mouth daily. MULTIVITAMIN ORAL Take 1 tablet by 0 10/25/2010 mouth daily. BIOTIN ORAL Take by mouth daily. 0 01/17/2017 CALCIUM CITRATE ORAL Take 1 tablet by 0 2 01/30/2021 mouth 2 (two) times a day. CYCLOSPORINE (RESTASIS Administer into both 0 05/13/2019 OPHT) eyes every 12 (twelve) hours. DORZOLAMIDE HCL/TIMOLOL Administer 1 drop 0 10/2505/13/2019 MALEAT (COSOPT OPHT) into the right eye daily. estradiol (VAGIFEM) 10 Insert 10 mcg into 0 09/2805/13/2019 mcg vaginal tablet the vagina 2 (two) times a week. fexofenadine-pseudoephed Take 1 tablet by 0 10/1805/14/2019 rine (ROCHELLE-D 12 HOUR) mouth 2 (two) times a 60-120 mg per 12 hr day. tablet fluticasone (FLONASE) 50 Administer 2 sprays 0 05/14/2019 mcg/actuation nasal into each nostril spray daily. gabapentin Take 3 capsules by 0 12/05/20152018 (for_NEURONTIN) 300 mg mouth daily. capsule meclizine (for_ANTIVERT) Take by mouth 3 0 201405/12/2019 12.5 mg tablet (three) times a day as needed. omeprazole Take 1 capsule by 0 10/08/2016 019 (for_PriLOSEC) 40 mg mouth daily. capsule documented as of this encounter ED Notes Blake Gamino R.N. - 01/18/2017 12:29 AM CDT ED Disposition Summary ED Disposition Summary Entered On: 01/18/2017 0:30 CDT Performed On: 01/18/2017 0:29 CDT by BLAKE GAMINO RN ED Disposition Summary Present in Room During Exam/Procedure : Spouse Mode of Discharge : Ambulatory Transportation : Private vehicle Discharge From ED With : Home Med List Printed Discharge Instructions Given to Patient : Yes Patient Status at Discharge from ED : Improved 30 Minutes Critical Care : No BLAKE GAMINO RN - 01/18/2017 0:29 CDT Source: [employer] Document Id: [id number] CDT!9 Blake Gamino R.NDann - 01/17/2017 11:38 PM CDT ED Treatments and Procedures ED Treatments and Procedures Entered On: 01/18/2017 0:29 CDT Performed On: 01/17/2017 23:38 CDT by BLAKE GAMINO RN Peripheral IV Peripheral IV Assess/Intervention Grid Peripheral IV #1 IV Activity : Discontinue Removal : Catheter intact, Hemostasis within expected timeframe Date of Insertion : 01/17/2017 CDT Discontinued Date : 01/17/2017 CDT IV Site : Antecubital Laterality : Left Catheter Size : 18 Site Condition : No complications BLAKE GAMINO RN - 01/18/2017 0:29 CDT Source: [employer] Document Id: [id number] CDT!12 Blake Gamino R.NDann - 01/17/2017 9:05 PM CDT ED Pain Assessment ED Pain Assessment Entered On: 01/17/2017 21:06 CDT Performed On: 01/17/2017 21:05 CDT by BLAKE GAMINO RN Pain Assessment Pain Symptoms : Yes BLAKE GAMINO RN - 01/17/2017 21:05 CDT Pain Scale Pain Scale Verbal 0-10 : Open BLAKE GAMINO RN - 01/17/2017 21:05 CDT Pain Pain Assessment Grid Pain 1 Location : Abdomen Intensity : 4 Time Pattern : Intermittent BLAKE GAMINO RN - 01/17/2017 21:05 CDT Source: [employer] Document Id: [id number] CDT!11 Blake Gamino R.N. - 01/17/2017 8:26 PM CDT ED Treatments and Procedures ED Treatments and Procedures Entered On: 01/17/2017 20:45 CDT Performed On: 01/17/2017 20:26 CDT by BLAKE GAMINO RN Peripheral IV Peripheral IV Assess/Intervention Grid Peripheral IV #1 IV Activity : Start Number of Attempts : 1 Date of Insertion : 01/17/2017 CDT IV Site : Antecubital Laterality : Left Catheter Size : 18 Site Condition : No complications Flow/ Patency : No complications IV Equipment/Supplies : Blood set, Extension, set BLAKE GAMINO RN - 01/17/2017 20:44 CDT Source: [employer] Document Id: [id number] CDT!13 German Betts P.A.-C. - 01/17/2017 8:18 PM CDT Abdominal pain Patient: KATHRYN LEON Age: 81 years Sex: Female : 1935 Author: GERMAN BETTS PA-C Attachments: None Associated Diagnosis: Pain Abdominal L Lower Quadrant (LLQ) Basic Information Time seen: Date 01/17/2017, Immediately upon arrival. History source: Patient, EMS. Arrival mode: Ambulance. History limitation: None. Additional information: Patient's physician(s): Patient presents with abdominal pain left lower quadrant which started about 1 hour ago. Sharp pain, radiates throughout the rest of the abdomen. Worse with movement, better with rest. She has felt some nausea but has not had any vomiting. No diarrhea. Has had pain in this area multiple times previously with significant workup thus far which is some diverticulosis in celiac disease but no other definite cause for the pain. The pain was much worse than usual this evening which is why she called EMS and was brought to the emergency room. She has not taken or been administered any medications prior to arrival.. Review of Systems Constitutional symptoms: No fever or no chills. Skin symptoms: No rash. ENMT symptoms: No sore throat. Respiratory symptoms: No shortness of breath or no cough. Cardiovascular symptoms: No chest pain. Gastrointestinal symptoms: Abdominal pain and nausea, but no vomiting, no diarrhea or no rectal bleeding. Genitourinary symptoms: No dysuria. Musculoskeletal symptoms: No back pain. Neurologic symptoms: No headache. Health Status Allergies: Allergic Reactions (Selected) Severity Not Documented Glutens- No reactions were documented. Nuts- No reactions were documented. Nonallergic Reactions (Selected) Severity Not Documented Miconazole topical- No reactions were documented.. Medications: (Selected) Inpatient Medications Ordered Dilaudid: 0.5 mg, 0.5 mL, IV Push, q30min, PRN: Pain Prescriptions Prescribed Rochelle-D 12 Hour 60 mg-120 mg oral tablet, extended release: 1 tab(s), PO, 2xDay, 180 tab(s), 3 Refill(s) Flonase 50 mcg/inh nasal spray: 2 spray(s), Nostrils(Both), Daily, 3 each, 1 Refill(s) Vagifem 10 mcg vaginal tablet: 10 mcg, Vaginal, 2xWeek, Member No [id number], 26 tab(s), 2 Refill(s) gabapentin 300 mg oral capsule: 900 mg, 3 cap(s), PO, Daily, 270 cap(s), 0 Refill(s) meclizine 12.5 mg oral tablet: 1-2 tab(s), PO, 3xDay, 60 tab(s), PRN: Dizziness Documented Medications Documented Citracal: 1tab, 2xDay Cosopt ophthalmic solution: 1 drop(s), Daily, in the right eye only Multiple Vitamins oral tablet: 1 tab(s), PO, Daily, 30 tab(s) Restasis: one drop, Eyes(Both), q12hr Vitamin B-12: 1,000 mcg, PO, Daily biotin: PO, Daily ferrous sulfate 325 mg (65 mg elemental iron) oral tablet: 325 mg, 1 tab(s), PO, Daily omeprazole 40 mg oral delayed release capsule: 40 mg, 1 cap(s), PO, Daily. 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 Comments: 12/31/2010 CDT 12:11 CDT - PATTI ALMENDAREZ LPN date unknown Glaucoma NOS (365.9): Resolved.. Surgical history: Upper gastrointestinal endoscopy ([id number]) on 11/30/2013 at 78 Years. MAMMOGRAM (G0202) on 08/25/2013 at 78 Years. Comments: 10/31/2013 11:24 - SUJATHA MAR LPN [place] Normal may resume in [place] Mammogram ([id number]) on 07/15/2012 at 77 Years. Diagnostic colonoscopy ([id number]) on 03/25/2011 at 76 Years. Comments: 03/25/2011 08:49 - SAGRARIO NOLAND MD Sigmoid diverticulosis--not inflamed. Dual-energy X-ray absorptiometry (DXA), bone density study, 1 or more sites; axial skeleton (eg, hips, pelvis, spine).. (02076) in the week of 08/14/2010 at 75 Years. Comments: 10/25/2010 09:40 - CARMELO RHODES Hx: [id number] - BONE DEN HIPS/PEL/SP 08/01/2013 19:17 - Contributor source changed to PowerChart. Mammogram ([id number]) on 07/22/2010 at 75 Years. Mammogram ([id number]) on 06/28/2010 at 75 Years. Laminectomy approach to lumbar spine ([id number]) in 2008 at 74 Years. Colonoscopy ([id number]) on 02/01/2009 at 73 Years. Extracapsular cataract removal with insertion of intraocular lens prosthesis (1 stage procedure), manual or mechanical technique (eg, irrigation and aspiration or phacoemulsification) ([id number]) on 02/26/2007 at 72 Years. Comments: 10/25/2010 20:26 - PATTI ALMENDAREZ [employer] left HC COLONOSCOPY W SNARE REMOVAL TUMOR/POLYP/LESION - 12/31/06 on 12/31/2006 at 71 Years. HC ANTER COLPORRHAPHY,BLAD/VAGINA - 03/22/01 - ANTERIOR POSTERIOR REPAIR on 03/22/2001 at 66 Years. HC FLEX SIGMOIDOSCOPY W/WO JAMES SPEC BY BRUSH/WASH - on 06/14/1999 at 64 Years. Repair of cystocele ([id number]) in 1994 at 60 Years. Reduction mammaplasty () on 02/26/1982 at 47 Years. Hysterectomy ([id number]) on 11/04/1966 at 31 Years. Comments: 03/25/2011 08:51 - SAGRARIO NOLAND MD Vaginal Hemorrhoidectomy, internal and external, single column/group; ([id number]) on 02/26/1959 at 24 Years. C GLAUCOMA SURG,TRABECU AB EXTERNO on . HC HEMORRHOIDECTOMY W BANDING/LIGATION on . HC REMV CATARACT EXTRACAP,INSERT LENS on . HC REMOVAL OF TONSILS,<12 Y/O - Tonsillectomy < age 14 on . C VAGINAL HYSTERECTOMY - AGE 33 on . HC REDUCTION OF LARGE BREAST - 1974 - BILATERAL on .. Family history: Kidney Brother Glaucoma Father Down syndrome Brother Celiac disease Brother . Physical Examination General: Alert and no acute distress. Skin: Warm, dry and pink. Head: Atraumatic. Eye: Pupils are equal, round and reactive to light. Cardiovascular: Regular rate and rhythm. Respiratory: Lungs are clear to auscultation. Gastrointestinal: Soft, Guarding and rebound in the left lower quadrant with some significant tenderness, left upper quadrant is mildly tender without any guarding or rebound, the right side of the abdomen is completely benign without guarding or rebound. and Bowel sounds: Normal. Back: Nontender. Neurological: Alert and oriented to person, place, time, and situation and No focal neurological deficit observed. Psychiatric: Cooperative and appropriate mood & affect. Medical Decision Making Differential Diagnosis:Abdominal pain, Appendicitis, ischemic bowel, diverticulitis. OrdersLaunch Orders Laboratory: Lactate (Order Processing): Stat, 01/17/2017 20:20 CDT, Once Basic Metabolic Panel (Order Processing): Stat, 01/17/2017 20:19 CDT, Once CBC (includes Auto Differential) (Order Processing): Stat, 01/17/2017 20:19 CDT, Once Patient Care: ED Abdominal Pain - Lower (Order Processing) Pulse Oximetry-ED (Order Processing): 01/17/2017 20:19 CDT ED Second IV Start (Order Processing) Peripheral IV (Order Processing): 01/17/2017 20:20 CDT Pharmacy: Dilaudid (Order Processing): 0.5 mg, IV Push, q30min, PRN: Pain ondansetron (Order Processing): 4 mg, IV Push, Once. Reexamination/ Reevaluation Vital signs results included from flowsheet : Vital Signs 01/17/2017 21:06 CDT Peripheral Pulse Rate 64 /min SpO2 97 % Course: improving. Pain status: decreased. Assessment: exam improved, Patient no longer has guarding or rebound. Notes: CT of the abdomen and pelvis is unremarkable, her labs unremarkable other than a elevated lactate however given her exam and negative CT I do not believe this is from tissue hypoperfusion. Emergent etiology of her pain such as diverticulitis, perforation of bowel, mesenteric ischemia, appendicitis are unlikely. At this point will give her oxycodone to use at home, hopefully this will pass antibiotic day as her previous episodes of left lower quadrant abdominal pain have.. Impression and Plan Diagnosis Pain Abdominal L Lower Quadrant (LLQ) (Discharge, Emergency medicine, Medical) Plan Condition: Stable. Disposition: Discharged: to home. Patient was given the following educational materials: Abdominal Pain, Adult. Follow up with: Return to Emergency Department Within As Needed If symptoms worsen.; ELSEWHERE PCP Within As Needed. Counseled: Patient, Family, Regarding diagnosis, Regarding diagnostic results, Regarding treatment plan, Regarding prescription, Patient indicated understanding of instructions. Electronically Signed By: GERMAN BETTS PA-C On: 01/17/2017 11:53 PM Modified by and Electronically Signed by: GERMAN BETTS PA-C On: 01/17/2017 09:06 PM Source: [facility] POWERCHART Document Id: [id number]} Blake Gamino R.N. - 01/17/2017 8:15 PM CDT ED Primary Assessment Document Has Been Updated ED Primary Assessment Entered On: 01/17/2017 20:48 CDT Performed On: 01/17/2017 20:15 CDT by BLAKE GAMINO RN Reason For Visit (As Of: 01/17/2017 20:49:35 CDT) Problems(Active) Abnormal Liver Function Test (ICD-9-CM :790.6 ) Name of Problem: Abnormal Liver Function Test ; Onset Date: 10/05/2014 ; Recorder: [place]IA VARMA APRN, IVANA WELCH; Confirmation: Confirmed ; Classification: Medical ; Code: 790.6 ; Contributor System: [email or web address] ; Last Updated: 11/17/2014 12:51 [place] ; [employer] Status: Active ; Responsible Provider: ALBANIA VARMA APRN, DNP, CNP; Vocabulary: ICD-9-CM Allergic rhinitis, unspecified (ICD-9-CM :477.9 ) Name of Problem: Allergic rhinitis, unspecified ; Onset Date: 1950 ; Recorder: PATTI ALMENDAREZ LPN; Confirmation: Confirmed ; Classification: Nursing ;Code: 477.9 ; Contributor System: PowerChart ; Last Updated: 01/21/2011 10:04 CDT ; Life Cycle Date: 10/25/2010 ; Life Cycle Status: Active ; Responsible Provider: PATTI ALMENDAREZ LPN; Vocabulary: ICD-9-CM ; Comments: 12/31/2010 12:10 - PATTI ALMENDAREZ LPN date unk Arthritis, rheumatoid* (ICD-9-CM :714.0 ) Name of Problem: Arthritis, rheumatoid* ; Onset Date: 02/27/1980 ; Recorder: PATTI ALMENDAREZ LPN; Confirmation: Confirmed ; Classification: Nursing ; Code: 714.0 ; Contributor System: PowerChart ; Last Updated: 10/25/2010 20:18 [place] ; Life Cycle Date: 10/25/2010 ; Life Cycle Status: Active ; Responsible Provider: PATTI ALMENDAREZ LPN; Vocabulary: ICD-9-CM Atrophic vaginitis (ICD-9-CM :627.3 ) Name of Problem: Atrophic vaginitis ; Onset Date: 07/27/2012 ;Recorder: ALBANIA VARMA APRN, DNP, CNP; Confirmation: Confirmed ; Classification: Medical ; Code: 627.3 ; Last Updated: 07/27/2012 11:32 [place] ; Life Cycle Status: Active ; Responsible Provider: ALBANIA VARMA APRN, YURI, IVANA; Vocabulary: ICD-9-CM Bursitis Hip/Trochanertic (ICD-9-CM :726.5 ) Name of Problem: Bursitis Hip/Trochanertic ; Onset Date: 10/20/2011 ; Recorder: ALBANIA VARMA APRN, YURI, IVANA; Confirmation: Confirmed ; Classification: Medical ; Code: 726.5 ; Last Updated: 10/20/2011 9:54 [place] ; Life Cycle Status: Active ; Responsible Provider: ALBANIA VARMA APRN, DNP, IVANA; Vocabulary: ICD-9-CM Cataract NOS (ICD-9-CM :366.9 ) Name of Problem: Cataract NOS ; Onset Date: 1991 ; Recorder: PATTI ALMENDAREZ LPN; Confirmation: Confirmed ; Classification: Nursing ; Code: 366.9 ; Contributor System: PowerChart ; Last Updated: 01/21/2011 10:04 CDT ; Life Cycle Date: 10/25/2010 ; Life Cycle Status: Active ; Responsible Provider: PATTI ALMENDAREZ LPN; Vocabulary: ICD-9-CM ; Comments: 12/31/2010 12:11 - PATTI ALMENDAREZ LPN date unknown Celiac Disease (ICD-9-CM :579.0 ) Name of Problem: Celiac Disease ; Onset Date: 02/26/2007 ; Recorder: PATTI ALMENDAREZ LPN; Confirmation: Confirmed ; Classification: Nursing ; Code: 579.0 ; ContributorSystem: PowerChart ; Last Updated: 10/25/2010 20:20 [place] ; Life Cycle Date: 10/25/2010 ; Life Cycle Status: Active ; Responsible Provider: PATTI ALMENDAREZ LPN; Vocabulary: ICD-9-CM Chest wall pain* (ICD-9-CM :786.52 ) Name of Problem: Chest wall pain* ; Onset Date: 09/05/2013 ; Recorder: ALBANIA VARMA APRN, DNP, CNP; Confirmation: Confirmed ; Classification: Medical ; Code: 786.52 ; Last Updated: 02/01/2014 16:15 CDT ; Life Cycle Status: Active ; Responsible Provider: ALBANIA VARMA APRN, DNP, CNP; Vocabulary: ICD-9-CM 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 ) Name of Problem: Disease Vocal Cord ; Recorder: ALBANIA VARMA APRN, DNP, CNP; Confirmation: Confirmed ; Classification: Medical ; Code: J38.3 ; Contributor System: SabrixChart ; Last Updated: 07/10/2015 10:30 CDT ; Life Cycle Status: Active ; Responsible Provider: ALBANIA VARMA APRN, DNP, CNP; Vocabulary: ICD-10-CM Diverticulitis of large intestine (ICD-9-CM :562.11 ) Name of Problem: Diverticulitis of large intestine ; Onset Date: 10/28/2010 ; Recorder: ALBANIA VARMA APRN, DNP, CNP; Confirmation: Confirmed ; Classification: Medical ; Code: 562.11 ; Last Updated: 10/28/2010 16:30 [place] ; Life Cycle Status: Active; Responsible Provider: ALBANIA VARMA APRN, DNP, CNP; Vocabulary: ICD-9-CM Eye disorder (ICD-9-CM :379.8 ) Name of Problem: Eye disorder ; Recorder: TAMMY ACEVES MD; Confirmation: Confirmed ; Classification: UPDATE NEEDED ; Code: 379.8 ; Contributor System: SabrixChart ; Last Updated: 11/12/2015 4:13 [place] ; Life Cycle Date: 01/05/2012 ; Life Cycle Status: Active ; Responsible Provider: TAMMY ACEVES MD; Vocabulary: ICD-9-CM ; Comments: 01/21/2012 9:37 - MATTHEW BORDEN LPN date unknown Fracture of rib (SNOMED CT :25391870 ) Name of Problem: Fracture of rib ; Onset Date: 05/12/2013 ; Recorder: SUJATHA MAR LPN; Confirmation: Confirmed ; Classification: Nursing ; Code: 36397336 ;Contributor System: SabrixChart ; Last Updated: 06/07/2013 8:10 CDT ; Life Cycle Date: 06/07/2013 ; Life Cycle Status: Active ; Responsible Provider: MRA, SUJATHA R [employer]; Vocabulary: SNOMED CT ; Comments: 06/07/2013 8:10 - ISABELA SUJATHA R [employer] left side Glaucoma (ICD-9-CM :365.44 ) Name of Problem: Glaucoma ; Onset Date: 1986 ; Recorder: PATTI ALMENDAREZ LPN; Confirmation: Confirmed ; Classification: Nursing ; Code: 365.44 ; Contributor System: PowerChart ; Last Updated: 11/12/2015 4:13 [place] ; Life Cycle Date: 10/25/2010 ; Life Cycle Status: Active ; Responsible Provider: PATTI ALMENDAREZ LPN; Vocabulary: ICD-9-CM ; Comments: 12/31/2010 12:11 - PATTI ALMENDAREZ LPN date unknown Glaucoma (SNOMED CT :55890236 ) Name of Problem: Glaucoma ; Recorder: TAMMY ACEVES MD; Confirmation: Confirmed ; Classification: Medical ; Code: 70983071 ; Contributor System: SabrixChart ; Last Updated: 01/05/2012 18:52 CDT ; Life Cycle Date: 01/05/2012 ; Life Cycle Status: Active ; ResponsibleProvider: TAMMY ACEVES MD; Vocabulary: SNOMED CT ; Comments: 01/21/2012 9:37 - MATTHEW BORDEN LPN date unknown Hernia, hiatal (ICD-9-CM :553.3 ) Name of Problem: Hernia, hiatal ; Onset Date: 10/31/2013 ; Recorder: ALBANIA VARMA APRN, DNP, [employer]; Confirmation: Confirmed ; Classification: Medical ; Code: 553.3 ; Last Updated: 10/31/2013 11:53 [place] ; Life Cycle Status: Active ; Responsible Provider: ALBANIA VARMA APRN, YURI, [employer]; Vocabulary: ICD-9-CM Osteopenia (ICD-9-CM :733.90 ) Name of Problem: Osteopenia ; Onset Date: 02/26/1987 ; Recorder: PATTI ALMENDAREZ LPN; Confirmation: Confirmed ; Classification: Nursing ; Code: 733.90 ; Contributor System: PowerChart ; Last Updated: 10/25/2010 20:19 [place] ; Life Cycle Date: 10/25/2010 ; Life Cycle Status: Active ; Responsible Provider: PATTI ALMENDAREZ LPN; Vocabulary: ICD-9-CM Diagnoses(Active) Abdominal pain Date: 01/17/2017 ; Diagnosis Type: Reason For Visit ; Confirmation: Confirmed ; Clinical Dx: Abdominal pain ; Classification: Medical ; Clinical Service: Emergency medicine ; Code: PNED ; Probability: 0 ; Diagnosis Code: [id number] Triage Chief Complaint Description : Pt c/o diffuse intermittent abdominal pain that started one hour ago. Pt states she has hx of diverticulitis and this feels similar. BLAKE GAMINO RN - 01/17/2017 20:49 CDT Information Given By : Patient, EMS Present in Room During Exam/Procedure : EMS, Spouse Mode of Arrival ED : Private vehicle Track : Medical Languages : [place] Patient Informed of Triage Location : Emergency department Vital Signs Assessed : Yes GCS Assessed : Yes Treatments Prior to Arrival : None Is Patient Female and 13-50 no hysterectomy : No BLAKE GAMINO RN - 01/17/2017 20:45 CDT Vital Signs Temperature Core : 36.2 DegC(Converted to: 97.2 DegF) (LOW) Peripheral Pulse Rate : 66 /min Respiratory Rate : 20 /min Systolic Blood Pressure : 111 mmHg Diastolic Blood Pressure : 56 mmHg NIBP Mean : 74 mmHg SpO2 : 97 % Oxygen Therapy : Room air BLAKE GAMINO RN - 01/17/2017 20:45 CDT Arp Coma Eye Opening Response Nabil : Spontaneously Best Verbal Response Nabil : Oriented Best Motor Response Arp : Obeys simple commands Nabil Coma Score : 15 BLAKE GAMINO RN - 01/17/2017 20:45 CDT Pain Assessment Pain Symptoms : Yes BLAKE GAMINO RN - 01/17/2017 20:45 CDT Pain Scale Pain Scale Verbal 0-10 : Open BLAKE GAMINO RN - 01/17/2017 20:45 CDT Pain Pain Assessment Grid Pain 1 Location : Abdomen Laterality : Bilateral Intensity : 9 Time Pattern : Intermittent BLAKE GAMINO RN - 01/17/2017 20:45 CDT Comfort Measures Comfort Measures Grid Positioning : Yes BLAKE GAMINO RN - 01/17/2017 20:45 CDT ED Physician Notification Time ED Physician Notification Time : 01/17/2017 20:20 CDT BLAKE GAMINO RN - 01/17/2017 20:45 CDT CAMI CAMI Level 1 : No CAMI Level 2 : No CAMI Level 3 : Many Vital Signs CAMI : No GAMINO, BLAKE Naranjo RN - 01/17/2017 20:45 CDT DCP GENERIC CODE Tracking Group : [facility] ED Tracking Acuity : 3 -Urgent JORDANA BLAKE Jose A RN - 01/17/2017 20:45 CDT Allergy (As Of: 01/17/2017 20:48:17 CDT) Allergies (Active) Glutens Estimated Onset Date: Unspecified ; Created By: PATTI ALMENDAREZ LPN; Reaction Status: Active; Category: Drug ; Substance: Glutens ; Type: Allergy ; Updated By: PATTI ALMENDAREZ LPN; Reviewed Date: 01/17/2017 20:47 CDT miconazole topical Comments: Comment 1: MICONAZOLE NITRATE ; Created By: Contributor_system, [facility]; Reaction Status: Active ; Category: Drug ; Substance: miconazole topical ; Type: Unknown ;Updated By: Contributor_system, [facility]; Reviewed Date: 01/17/2017 20:47 CDT Nuts Estimated Onset Date: Unspecified ; Created By: PATTI ALMENDAREZ LPN; Reaction Status: Active ; Category: Food ; Substance: Nuts ; Type: Allergy ; Updated By: PATTI ALMENDAREZ LPN; Reviewed Date: 01/17/2017 20:47 CDT ID Screen Drug Resistant Organism : No Travel Within Last 21 Days : No Contact with someone with Ebola : No BLAKE GAMINO RN - 01/17/2017 20:45 CDT Immunizations Immunizations Current : Yes BLAKE GAMINO RN - 01/17/2017 20:45 CDT Respiratory Airway : Patent Respirations : Unlabored Respiratory Pattern : Regular Oxygen Therapy : Room air BLAKE GAMINO RN - 01/17/2017 20:45 CDT Cardiovascular Heart Rhythm : Regular Skin Color : Normal for ethnicity Skin Description : Dry Skin Temperature : Warm BLAKE GAMINO RN - 01/17/2017 20:45 CDT Neurological Last Well Time Known : Not applicable Level of Consciousness : Alert Orientation : Appropriate for age Characteristics of Speech : Appropriate for age Neuro Patient Stated Symptoms : None Gait : Steady Swallowing Difficulty/Aspiration Risk : None BLAKE GAMINO RN - 01/17/2017 20:45 CDT ED Psychosocial Affect/Behavior : Calm, Cooperative, Appropriate Domestic Abuse Concerns : None Behavioral Health Screen/Safety Assmt : No BLAKE GAMINO RN - 01/17/2017 20:45 CDT Gastrointestinal Nutrition ED : Adequate BLAKE GAMINO RN - 01/17/2017 20:45 CDT Musculoskeletal Fall Prevention Education Provided : NA BLAKE GAMINO RN - 01/17/2017 20:45 CDT Social Habits Exposure to Tobacco Smoke : Care provider denies smoking in home, Other: never Smoking Status : Never smoker Tobacco 2A : Unknown Tobacco Use/Currently Using : No Tobacco Use/Last 30 Days : No Tobacco Use/Last 12 months : No BLAKE GAMINO RN - 01/17/2017 20:45 CDT Alcohol Use Grid Alcohol Use : Yes Type : Liquor Frequency : Occasionally BLAKE GAMINO RN - 01/17/2017 20:45 CDT Recreational Drug Use Grid Drug Use : Current Type : Alcohol Route : Oral Frequency : Occasionally BLAKE GAMINO RN - 01/17/2017 20:45 CDT Source: [employer] Document Id: [id number] CDT!3 documented in this encounter Miscellaneous Notes Miscellaneous - Blake Gamino R.N. - 01/18/2017 12:30 AM CDT Valuables/Belongings Valuables/Belongings Entered On: 01/18/2017 0:30 CDT Performed On: 01/18/2017 0:30 CDT by BLAKE GAMINO RN Valuables/Belongings Belongings Sent Home With : patient and spouse Home Medication Disposition : None brought in with patient BLAKE GAMINO RN - 01/18/2017 0:30 CDT Source: [employer] Document Id: [id number] CDT!4 Miscellaneous - Conversion, Historical Provider Ser - 01/17/2017 11:43 PM CDT Coding Summary-Paper Based CODING DATE: 01/26/2017 FINAL [place] [facility] STATUS: * Discharged to Home or Self Care PAYOR: Medicare ADMIT DX: R10.32 Left lower quadrant pain REASON FOR VISIT DX: R10.32 Left lower quadrant pain FINAL DX: PRINCIPAL: R10.32 Left lower quadrant pain SECONDARY: R11.0 Nausea PROCEDURES DOCTOR NAME DATE NOTE: The code number assigned matches the documented diagnosis and / or procedure in the patient's chart. However, the narrative phrase printed from the coding software may appear abbreviated, or result in slightly different terminology. Coded By: AUREA MORALES Date Saved: 01/26/2017 12:25 pm Source: [employer] Document Id: [id number] Miscellaneous - Blake Gamino, R.N. - 01/17/2017 8:09 PM CDT Facility Charge Ticket 2.0 11.0 DX Facility Charge Ticket 2.0 11.0 DX Entered On: 01/18/2017 0:30 CDT Performed On: 01/17/2017 20:09 CDT by BLAKE GAMINO RN Facility Charge Ticket 2.0 11.0 DX ED Other Charges : Standard ED Encounter TVL Level Translated RTF : Abdominal pain TVL:4 TVL Level for Facility Charge Ticket : Level 4 Arrival Mode Calc : 1 Mode of Arrival ED : Private vehicle [facility] Mode of Arrival Interpreted : Standard [facility] Process Management : None Order Management RTF : Laboratory Basic Metabolic Panel,01/17/17 20:19,GERMAN BETTS PA-C Completed CBC (includes Auto Differential),01/17/17 20:19,GERMAN BETTS PA-C Completed Lactate,01/17/17 20:20,GERMAN BETTS PA-C Completed Automated Diff-5 Part,01/17/17 20:31,GERMAN BETTS PA-C Completed CT / MRI / Ultrasound CT Abdomen/Pelvis w/ contrast,01/17/17 20:21,GERMAN BETTS PA-C Completed [facility] Order Management : CT/MRI/Ultrasound, Lab tests 30 Minutes Critical Care : No Nursing Notes RTF : Nursing Notes ED Primary Assessment,01/17/17 20:15,BLAKE GAMINO CHEMICAL DEPENDENCY NURSE Pain Assessment,01/17/17 21:05,BLAKE GAMINO RN [facility] Nursing Assessment : Triage and 1-2 nursing assessments [facility] Disposition : Discharge Disposition RTF : discharge [facility] Total Points with Diagnosis Control : 10 [facility] Visit Level : 12095 Level 4 Treatments Prior to Arrival : None BLAKE GAMINO RN - 01/18/2017 0:30 CDT Source: [facility] POWERCHART Document Id: [id number] CDT!19 documented in this encounter Plan of Treatment Not on filedocumented as of this encounter Procedures Procedure Name Priority Date/Time Associated Diagnosis Comme nts AUTOMATED Routine 01/17/2017 8:25 PM Results f or this DIFFERENTIAL, B CDT procedure ar e in the results section. CBC WITH Routine 01/17/2017 8:25 PM Results f or this DIFFERENTIAL, B CDT procedure ar e in the results section. LACTATE, B/P Routine 01/17/2017 8:25 PM Results f or this CDT procedure are i n the results section. BASIC METABOLIC Routine 01/17/2017 8:25 PM Result s for this PANEL, S/P CDT procedure are i n the results section. documented in this encounter Results Automated Differential (01/17/2017 8:25 PM CDT) P athologist Signature Absolute 2.00 1.70 - POWERCHART Neutrophils 7.00 109L Lymphocytes 1.72 0.90 - POWERCHART 2.90 X109L Monocytes 0.43 0.30 - POWERCHART 0.90 X109L Eosinophils 0.13 0.05 - POWERCHART 0.50 X109L Absolute 0.02 0.00 - POWERCHART Basophil 0.30 X109L Specimen Anatomical Collection Method Collection Time Receive d Time (Source) Location / / Volume Laterality Blood 01/17/2017 8:25 PM 7 8:25 CDT PM CDT German S Betts P.A.-C. LAB BLOOD ADD-ON Performing Organization Address City/[facility] Code Phon e Number POWERCHART CBC with Differential (01/17/2017 8:25 PM CDT) P athologist Signature Leukocytes 4.3 3.4 - 10.5 POWERCHART X109L Erythrocytes 4.17 3.90 - 5.03 POWERCHART [id number] Hemoglobin 12.7 12.0 - 15.5 POWERCHART GDL Hematocrit 36.8 34.9 - 44.5 POWERCHART MCV 88.2 81.6 - 98.3 POWERCHART FL HX RDW 12.6 11.9 - 15.5 POWERCHART Platelet Count 150 150 - 450 POWERCHART X109L Specimen (Source) Anatomical Collection Method Collection Time Re ceived Time Location / / Volume Laterality Blood 01/17/2017 8:25 PM CDT German Woodward.-C. LAB BLOOD ADD-ON Performing Organization Address [facility] Phon e Number POWERCHART (ABNORMAL) Lactate (01/17/2017 8:25 PM CDT) P athologist Signature Lactate, P 2.9 (H) 0.5 - 2.2 POWERCHART MMOLL Specimen (Source) Anatomical Collection Method Collection Time Re ceived Time Location / / Volume Laterality Blood 01/17/2017 8:25 PM CDT German S Alpesh CostaA.-C. LAB BLOOD NON ADD-ON Performing Organization Address [facility] Code Phon e Number POWERCHART (ABNORMAL) BMP (Basic Metabolic Panel) (01/17/2017 8:25 PM CDT) Analysis Performed At Patho logist Time Signature Sodium, S 136 135 - 145 POWERCHART MMOLL Potassium, S 3.5 3.5 - 5.1 POWERCHART MMOLL Chloride, S 96 (L) 98 - 107 POWERCHART MMOLL CO2 Total 24 22 - 29 POWERCHART MMOLL BUN (Blood Urea 15 6 - 21 POWERCHART Nitrogen), S MGDL Creatinine 1.05 (H) 0.59 - POWERCHART 1.04 MGDL Calcium, Total, 9.2 8.8 - 10.3 POWERCHART S MGDL Anion Gap 16 10 - 20 POWERCHART MMOLL HXeGFR (MDRD) 51 (L) >=60 POWERCHART [id number] eGFR >60 >=60 POWERCHART Black/ [id number] Citizen Of [place] Glucose 135 70 - 139 POWERCHART MGDL Specimen (Source) Anatomical Collection Method Collection Time Re ceived Time Location / / Volume Laterality Blood 01/17/2017 8:25 PM CDT German Betts P.A.-C. LAB BLOOD ADD-ON Performing Organization Address City/State/ZIP Code Phon e Number POWERCHART documented in this encounter Visit Diagnoses Not on filedocumented in this encounter
--- OUTSIDE RECORDS SUMMARY | 2022-05-06 13:10 | XMS_ITS | Encounter Summary ---
:1935 Author Organization [facility] Address [address] [place] [address] Care Team Providers Name Role Phone Unavailable Primary Care Provider Unavailable Encounter Details Date Type Department Care Team Description 04/07/2016 Hospital Encounter HX [facility] ED Tabitha Samson P.AXavi [address] [place] [address] [phone] (Wo rk) Social History Tobacco Use Types Packs/Day Years Used Date Smoking Tobacco: Never Assessed Sex Assigned at Date Recorded Not on file documented as of this encounter Last Filed Vital Signs Vital Sign Reading Time Taken Comments Blood Pressure 120/45 04/07/2016 12:19 PM CDT Pulse 60 04/07/2016 10:54 AM CDT Temperature - - Respiratory Rate 13 04/07/2016 2:18 PM CDT Oxygen Saturation - - Inhaled Oxygen Concentration - - Weight - - Height 163 cm (5' 4.17) 04/07/2016 2:18 PM CDT Body Mass Index - - documented in this encounter Medications at Time of Discharge Medication Sig Dispensed Refills Start Date End Date CYANOCOBALAMIN, VITAMIN Take 1,000 mcg by 0 10/25 B-12, ORAL mouth daily. ferrous sulfate 325 mg Take 1 tablet by 0 014 (65 mg iron) tablet mouth daily. MULTIVITAMIN ORAL Take 1 tablet by 0 10/25/2010 mouth daily. CALCIUM CITRATE ORAL Take 1 [...] Take 1 tablet by 0 10/1805/14/2019 rine (MING-D 12 HOUR) mouth 2 (two) times a 60-120 mg per 12 hr day. tablet fluticasone (FLONASE) 50 Administer 2 sprays 0 05/14/2019 mcg/actuation nasal into each nostril spray daily. gabapentin Take 3 capsules by 0 12/05/20152018 (for_NEURONTIN) 300 mg mouth daily. capsule meclizine (for_ANTIVERT) Take by mouth 3 0 201405/12/2019 12.5 mg tablet (three) times a day as needed. documented as of this encounter Plan of Treatment Not on filedocumented as of this encounter Visit Diagnoses Not on filedocumented in this encounter
--- OUTSIDE RECORDS SUMMARY | 2022-05-06 13:10 | XMS_ITS | Encounter Summary ---
:1935 Author Organization [facility] Address [address] [place] [address] Care Team Providers Name Role Phone Unavailable Primary Care Provider Unavailable Encounter Details Date Type Department Care Team Description 10/01/2016 Hospital Encounter HX [facility] Juan Goyal SURGCLINI M.D. [address] [place] [address] (Wo rk) Social History Tobacco Use Types Packs/Day Years Used Date Smoking Tobacco: Never Sex Assigned at Date Recorded Not on file documented as of this encounter Last Filed Vital Signs Vital Sign Reading Time Taken Comments Blood Pressure 128/76 10/01/2016 2:07 PM PUMPMAN Pulse 74 10/01/2016 2:07 PM PUMPMAN Temperature - - Respiratory Rate 16 10/01/2016 2:07 PM PUMPMAN Oxygen Saturation - - Inhaled Oxygen Concentration [...] as needed. documented as of this encounter Consult Notes Juan Gyoal M.D. - 10/01/2016 1:51 PM CST [id number] CHIEF COMPLAINT/REASON FOR VISIT I was asked to see this patient by Referral: The patient was seen by Antonia Aldrich CNP, regarding gallstones. HISTORY OF PRESENT ILLNESS Kathryn is a 81-year-old female who has had intermittent episodes of abdominal pain starting 5 years ago. More recently she has had 3 episodes in which the pain was extreme. These pain episodes are typically short-lived and self-limited. They seem to occur after approximately 30 minutes after she eats. She notes that the pain seems to be centered in the left lower quadrant and will radiate across to theright side. She has had intermittent radiation up to the right upper quadrant, as well. She has a history of celiac disease and has been managing this with diet. During these pain episodes she has had no nausea or vomiting. No fever or chills. No diarrhea or constipation and no yellowing of her skin or eyes. She has not noticed any darkening of her urine. Pain is sharp and crampy in nature. Other than eating, she has not identified any provocative or palliative factors. She is pain free today in clinic. She has a past surgical history significant for a hysterectomy. She does not smoke. She last underwent a colonoscopy in 2010 which showed extensive sigmoid diverticulosis. Patient was seen by Antonia Aldrich CNP, at [facility] on 09/25/2016. At that visit itwas noted that her ALT was mildly elevated at 66. She was noted to have some tenderness in the rightupper quadrant. An ultrasound of her abdomen performed 09/24/2016 showed multiple gallstones within the gallbladder and a sonographic Pagan sign. There was no significant gallbladder wall thickening or pericholecystic fluid. Common bile duct was normal in appearance. Patient was also noted to have hepatic steatosis and an unchanged left hepatic lobe cyst. No abnormalities were identified in the leftlower quadrant on ultrasound. In June of 2016 the patient underwent a transvaginal ultrasound which showed small bilateral ovarian cysts which were unchanged. She underwent a CT of the abdomen and pelvis in March 2016 showing extensive colonic diverticulosis, but no convincing evidence of active diverticulitis. Past medical history, past surgical history, family history, social history, medications, and allergies were all reviewed in the electronic medical record under their respective tabs. SYSTEMS REVIEW All pertinent items are included in history of present illness, past medical and past surgical histories. PHYSICAL EXAMINATION VITAL SIGNS: Temperature 36.7, heart rate 74, respiratory rate 16, blood pressure 128/76, oxygen saturation 98% on room air. Weight 69 kg. GENERAL: Well-developed, well-nourished, elderly female in no acute distress. Sitting comfortably inexamination room. HEENT: Head is atraumatic, normocephalic. Symmetrical features. External ears and nose normal. Moistmucous membranes. No pharyngeal erythema. Eyes: Pupils equal, round, reactive to light. Extraocular motion intact. No scleral icterus. NECK: Supple. No masses or thyromegaly detected. RESPIRATORY: No respiratory effort. No wheezing. No cough. GASTROINTESTINAL: Abdomen is soft, nondistended, mild tenderness to deep palpation in the left lowerquadrant. No rebound or guarding. No masses, scars, or organomegaly detected. No tenderness to palpation in the right upper quadrant. MUSCULOSKELETAL: Moves all extremities. No deformities or lesions. SKIN: Warm and dry. No rashes or jaundice. NEUROLOGIC: Alert and oriented x3. Cranial nerves II to XII grossly intact. PSYCHIATRIC: Normal affect, pleasant, cooperative. DIAGNOSTICS Patient's laboratory and imaging studies are reviewed in the electronic medical record. I personallyreviewed all imaging that is discussed in the history of present illness. Pertinent laboratory findings were also discussed in the history of present illness of present illness. I reviewed these imaging studies with the patient in clinic today. IMPRESSION/REPORT/PLAN A 81-year-old female with left lower quadrant abdominal pain. Patient also was noted to have cholelithiasis on abdominal ultrasound. PLAN: I discussed my findings with Kathryn and her . I do not believe that this pain is due to biliary colic. While the patient did have gallstones and a positive Pagan's sign on recent ultrasound, she is nontender today and it would be very unusual for the for gallbladder pain to be referred to the left lower quadrant. I did discuss the pathophysiology of gallbladder disease with Kathryn. I believe this is more likely due to the extensive diverticulosis in her sigmoid colon. This may represent a subclinical diverticulitis or just pain from diverticula. She is on a high-fiber diet and has a goal intake of 30 g per day. She also takes fiber supplementation. Her symptoms are not consistent with this being related to celiac disease either. Seeing these findings, I would not recommend laparoscopic cholecystectomy as I do not believe this would help the patient's symptoms. The possible benefits are outweighed by the risks given the currentinformation we have. I have recommended that Kathryn be seen in Gastroenterology Clinic at [facility] in [place] for further evaluation. I would be interested to see what their interpretation of possible pain sources would be. Kathryn can follow up with me on an as-needed basis or call with any questions or concerns. This was a 30 minute clinic visit. I spent 20 minutes counseling the patient. Juan Goyal M.D./farhat cc: Antonia Aldrich APRN, PROVIDER NETWORK ANALYST [facility] [address] [place] [address] Electronically Signed By: JUAN GOYAL MD On: 10/02/2016 02:09 PM Source: [facility] MHSDOLBEYNONRADSYS Document Id: [id number] MAN documented in this encounter Miscellaneous Notes Miscellaneous - Chantal Aceves R.N. - 10/01/2016 2:07 PM CST [employer] Intake/History [employer] Intake/History Entered On: 10/01/2016 14:10 PUMPMAN Performed On: 10/01/2016 14:07 PUMPMAN by CHANTAL ACEVES superintendent commissary Chief Complaint : abd pain for months, worse at right lower abd, comes and goes Temperature Core : 36.7 DegC(Converted to: 98.1 DegF) Peripheral Pulse Rate : 74 /min Respiratory Rate : 16 /min Heart Rhythm : Regular Systolic Blood Pressure : 128 mmHg Diastolic Blood Pressure : 76 mmHg NIBP Mean : 93 mmHg BP Location : Left upper extremity Blood Pressure Cuff Size : Large SpO2 : 98 % CHANTAL ACEVES RN - 10/01/2016 14:07 PUMPMAN General Info Information Given By : Patient Preferred Communication Mode : Verbal Languages : Belarusian Is Patient Female and 13-50 no hysterectomy : No CHANTAL ACEVES RN - 10/01/2016 14:07 PUMPMAN Subjective Pain Symptoms : Yes CHANTAL ACEVES RN - 10/01/2016 14:07 PUMPMAN Pain Scale Pain Scale Verbal 0-10 : Open CHANTAL ACEVES RN - 10/01/2016 14:07 PUMPMAN Pain Pain Assessment Grid Pain 1 Location : Abdomen CHANTAL ACEVES RN - 10/01/2016 14:07 PUMPMAN Dependent Habits Exposure to Tobacco Smoke : Care provider denies smoking in home, Other: never Smoking Status : Never smoker Tobacco 2A : No Tobacco Use/Currently Using : No Tobacco Use/Last 30 Days : No Tobacco Use/Last 12 months : No CHANTAL ACEVES RN - 10/01/2016 14:07 PUMPMAN Caffeine Use Grid Caffeine Use : Current Type : Coffee Frequency : Weekly CHANTAL ACEVES RN - 10/01/2016 14:07 PUMPMAN Recreational Drug Use Grid Drug Use : None CHANTAL ACEVES RN - 10/01/2016 14:07 PUMPMAN [facility] Document Id: [id number] PUMPMAN!41 MAN documented in this encounter Plan of Treatment Not on filedocumented as of this encounter Visit Diagnoses Not on filedocumented in this encounter
--- OUTSIDE RECORDS SUMMARY | 2022-05-06 13:10 | XMS_ITS | Encounter Summary ---
:1935 Author Organization [facility] Address [address] [place] [address] Care Team Providers Name Role Phone Unavailable Primary Care Provider Unavailable Encounter Details Date Type Department Care Team Description 09/23/[address] [facility] Gerardo Gamino P.ADann-CDann [address] [place], [place] [id number] (Wo rk) Social History Tobacco Use Types [...] as needed. documented as of this encounter Nursing Notes Jessica Banda L.P.N. - 09/23/2016 9:56 AM CST Influenza Vaccine pt came if for her influenza vaccine today. pt recieved 0.25ml of high dose vaccine due to intolorance of a full dose at one time. pt will return tomorrow for 2nd dose of 0.25ml of vaccine. pt has been doing this for many yrs. thanks. Electronically Signed By: JESSICA BANDA LPN On: 09/23/2016 09:57 AM [facility] Document Id: [id number] SS CLERK documented in this encounter Plan of Treatment Not on filedocumented as of this encounter Visit Diagnoses Not on filedocumented in this encounter
--- OUTSIDE RECORDS SUMMARY | 2022-05-06 13:10 | XMS_ITS | Encounter Summary ---
:1935 Author Organization [facility] Address [address] [place] [address] Care Team Providers Name Role Phone Unavailable Primary Care Provider Unavailable Encounter Details Date Type Department Care Team Description 09/27/2015 - Hospital Encounter HX [facility] Jordi Villarreal, 06/02/2016 EARLINE Fung [id number] [place] [phone] (Wo rk) Social History Tobacco Use [...] as needed. documented as of this encounter Progress Notes Bianca Villalobos P.T. - 09/28/2015 12:00 AM CST [id number] PHYSICAL THERAPY PROGRESS NOTE CHIEF COMPLAINT Patient reports she feels significantly better than yesterday but is still having episodes of dizziness especially when turning her head. She just wanted to ensure everything was clear as we are approaching the weekend. IMPRESSION/REPORT/PLAN Today we did perform Hallpike-[place] testing. She tested negative for all canals bilaterally. We did repeat AIR CONTROL/ANTI AIR WARFARE OFFICER maneuvers for the right posterior canal x2 as this was the canal treated yesterday within the emergency department. Patient tolerated this well. She did have symptoms very slightly on the 1st repetition, asymptomatic on the 2nd. Patient should anticipate symptom improvement every day with complete resolution of symptoms through the weekend. Patient does have Uribe-Daroff exercises, if she feels her symptoms are no better she will go ahead and initiate those. Patient has contact information for therapist if she should need to reach her over the weekend. Patient verbalized understanding. Will follow up with patient next week via telephone. Bianca iVllalobos D.P.T./farhat Electronically Signed By: BIANCA VILLALOBOS On: 10/17/2015 01:27 PM Source: [facility] MHSDOLBEYNONRADSYS Document Id: [id number] ING SUPERINTENDENT documented in this encounter Consult Notes Bianca Villalobos PMaikel - 09/27/2015 12:00 AM CST [id number] INITIAL EVALUATION Patient is referred to physical therapy by Dr. Osman. The patient is currently in the ED for symptoms of dizziness with room spinning. She is having nausea also noted. Patient has had a history of positional vertigo with intermittent episodes. She has always done well with canalith repositioning buck hnique. Patient reports her symptoms began prior to her admit to the ED. She reports she was sittingworking on a flower arrangement at eye level when symptoms of spinning and dizziness began. At this time she is highly symptomatic. We did perform Hallpike-Jimmy testing. She tested positive for a right posterior canal nystagmus lasting greater than 60 seconds as well as a left anterior canal nystagmus,Patient was treated for right posterior canal with AIR CONTROL/ANTI AIR WARFARE OFFICER maneuvers. She does require Skilled Physical Therapy for positional vertigo for canalith repositioning. She does consent to therapy treatment. Ready to learn. No apparent learning barriers were identified. Learning preferences include listening. Explained diagnosis and treatment plan. Patient/Child/Caregiver expressed understanding of the content. IMPRESSION/REPORT/PLAN We did perform 1 maneuver with the right posterior canal. She tolerated this well with symptom reproduction. PATIENT GOALS 1. Did include G8978 with modifier of CK, G8979 with modifier of CI as determined by her clinical presentation of symptoms and objective measures to be achieved within 2 weeks. 2. Patient will be symptom-free within 2 weeks. PLAN OF CARE Patient education, AIR CONTROL/ANTI AIR WARFARE OFFICER maneuvers, possible home program if needed. Plan will be to see patient up to4 treatment sessions over the next 2 weeks to resolve symptoms. Patient will be followed up via telephone tomorrow. Bianca Villalobos D.P.T./farhat Electronically Signed By: BIANCA VILLALOBOS On: 10/01/2015 11:27 AM Co-Signed By: EARLE OSMAN III, MD On: 10/15/2015 11:35 AM Source: [facility] MHSDOLBEYNONRADSYS Document Id: [id number] ING SUPERINTENDENT documented in this encounter Miscellaneous Notes Miscellaneous - Conversion, Historical Provider Ser - 10/04/2015 1:48 PM GLAZING SUPERINTENDENT Coding Summary-Paper Based CODING DATE: 10/04/[address] [facility] STATUS: Still Patient/Expected to Rtn Oupt Svc PAYOR: Medicare ADMIT DX: REASON FOR VISIT DX: FINAL DX: PRINCIPAL: H81.13 Benign paroxysmal vertigo, bilateral SECONDARY: PROCEDURES DOCTOR NAME DATE NOTE: The code number assigned matches the documented diagnosis and / or procedure in the patient's chart. However, the narrative phrase printed from the coding software may appear abbreviated, or result in slightly different terminology. Coded By: FRANCIS SEQUEIRA Date Saved: 10/04/2015 01:48 pm Source: [facility] Document Id: [id number] documented in this encounter Plan of Treatment Not on filedocumented as of this encounter Visit Diagnoses Not on filedocumented in this encounter
--- OUTSIDE RECORDS SUMMARY | 2022-05-06 13:10 | XMS_ITS | Encounter Summary ---
:1935 Author Organization [facility] Address [address] [place] [address] Care Team Providers Name Role Phone Elsewhere, Pcp Primary Care Provider Unavailable Encounter Details Date Type Department Care Team Description 08/27/2017 Orders Only Department of Family Kerri Mai AP RN, Medicine, [place] C.N.P., D .N.P. [facility], in [address] [address] [place] [address] [place], [place] [address] [phone] Social History Tobacco Use Types Packs/Day Years Used Date Smoking Tobacco: Never Sex Assigned at Date Recorded Not on file documented as of this encounter Plan of Treatment Not on filedocumented as of this encounter Visit Diagnoses Not on filedocumented in this encounter Care Teams Spinneret Cleaner Relationship Specialty Start Date End Date Elsewhere, Pcp PCP - General Family Medicine 08/26/17 01/30/21 documented as of this encounter
--- OUTSIDE RECORDS SUMMARY | 2022-05-06 13:10 | XMS_ITS | Encounter Summary ---
:1935 Author Organization [facility] Address [address] [place] [address] Care Team Providers Name Role Phone Elsewhere, Pcp Primary Care Provider Unavailable Encounter Details Date Type Department Care Team Description 04/09/2018 Hospital Encounter Department of [facility] Ald[facility] [place] [address] [place] [address] [place], [place] [phone] (Work) [phone] Social History Tobacco Use Types Packs/Day Years Used Date Smoking Tobacco: Never Sex Assigned at Date Recorded Not on file documented as of this encounter Medications at Time of Discharge Medication Sig Dispensed Refills Start Date End Date CYANOCOBALAMIN, Take 1,000 mcg by mouth 0 011 VITAMIN B-12, ORAL daily. ferrous sulfate 325 Take 1 tablet by mouth 0 10/15 mg (65 mg iron) daily. tablet MULTIVITAMIN ORAL Take 1 tablet by mouth 0 2010 daily. BIOTIN ORAL Take by mouth daily. 0 01/17/2017 CALCIUM CITRATE ORAL Take 1 tablet by mouth 2 0 0 01/21/2012 01/30/2021 (two) times a day. CYCLOSPORINE Administer into both 0 10/28/2010 (RESTASIS OPHT) eyes every 12 (twelve) hours. DORZOLAMIDE Administer 1 drop into 0 10/25/2010 0 05/13/2019 HCL/TIMOLOL MALEAT the right eye daily. (COSOPT OPHT) EPINEPHrine (EPIPEN Inject 0.3 mg 0 04/10/2017 2-KRISTIN) 0.3 mg/0.3 mL intramuscularly as injection syringe needed for anaphylaxis. estradiol (VAGIFEM) Insert 10 mcg into the 0 09/1405/13/2019 10 mcg vaginal tablet vagina 2 (two) times a week. fexofenadine-pseudoep Take 1 tablet by mouth 2 0 10/18/2015 05/14/2019 hedrine (MING-D 12 (two) times a day. HOUR) 60-120 mg per 12 hr tablet fluticasone (FLONASE) Administer 2 sprays into 0 11/22/2015 05/14/2019 50 mcg/actuation each nostril daily. nasal spray gabapentin Take 3 capsules by mouth 0 12/05/2015 05/13/2019 (for_NEURONTIN) 300 daily. mg capsule meclizine Take by mouth 3 (three) 0 12/26/2014 0 05/12/2019 (for_ANTIVERT) 12.5 times a day as needed. mg tablet omeprazole Take 1 capsule by mouth 0 10/08/2016 0 05/13/2019 (for_PriLOSEC) 40 mg daily. capsule documented as of this encounter Plan of Treatment Not on filedocumented as of this encounter Procedures Procedure Name Priority Date/Time Associated Comments Diagnosis CT ABDOMEN PELVIS RAD - Routine 04/09/2018 8:29 Pain Right Lower Re sults for this WITH IV CONTRAST (most inpatients AM CDT Quadrant procedu re are in and all the results outpatients) section. documented in this encounter Results CT Abdomen Pelvis with IV Contrast (04/09/2018 8:29 AM CDT) Anatomical Region Laterality Modality Abdomen, Pelvis, Abdominal RST LOS N/A Compu radha Tomography Specimen (Source) Anatomical Collection Method Collection Time Re ceived Time Location / / Volume Laterality 04/09/2018 8:32 AM CDT Impressions 04/09/2018 8:46 AM CDT IMPRESSION: 1. ??No acute findings in the abdomen or pelvis. 2. ??Indeterminant 1.1 x 0.9 cm enhancin g lesion within the head of the pancreas. Considerations include neuroendocrine tu mor and vascular lesion. Triple phase pancreas CT would be helpful for further evaluation. Narrative 04/09/2018 8:46 AM CDT EXAM: CT ABDOMEN PELVIS WITH IV CONTRAST COMPARISON: None FINDINGS: Indeterminant circumscribed 1. 1 x 0.9 cm enhancing lesion within the head of the pancreas (series 5, image 51 and series 4, image 44). This is minimally enlarged from 04/07/2016 when i t measured approximately 1.0 x 0.8 cm. Stable 2.2 cm cyst in hepatic segment II . Diffuse fatty infiltration of the liver. The spleen, adrenal glands, pancr eas, and gallbladder are normal in appearance. Negative adrenal glands. Sym metric nephrograms. Small bilateral renal cysts. No hydronephrosis. Normal c aliber small bowel. Negative appendix. Colonic diverticulosis. Bilateral adnexal cysts. The right adnex al cyst measures 1.9 cm and the left adnexal cyst measures 1.3 cm (series 5, image 63). The cysts have decreased in size from 04/07/2016. Hysterectomy. Normal caliber abdominal aorta. Large es ophageal hiatal hernia. Mild atelectasis in the lung bases. Mild degenerative art hritis both hips and sacroiliac joints. Mild anterolisthesis of L4 on L5. Procedure Note Carlyle Forbes M.D. - 04/09/2018For matting of this note might be different from the original. EXAM: CT ABDOMEN PELVIS WITH IV CONTRAST COMPARISON: None FINDINGS: Indeterminant circumscribed 1. 1 x 0.9 cm enhancing lesion within the head of the pancreas (series 5, image 51 and series 4, image 44). This is minimally enlarged from 04/07/2016 when i t measured approximately 1.0 x 0.8 cm. Stable 2.2 cm cyst in hepatic segment II . Diffuse fatty infiltration of the liver. The spleen, adrenal glands, pancr eas, and gallbladder are normal in appearance. Negative adrenal glands. Sym metric nephrograms. Small bilateral renal cysts. No hydronephrosis. Normal c aliber small bowel. Negative appendix. Colonic diverticulosis. Bilateral adnexal cysts. The right adnex al cyst measures 1.9 cm and the left adnexal cyst measures 1.3 cm (series 5, image 63). The cysts have decreased in size from 04/07/2016. Hysterectomy. Normal caliber abdominal aorta. Large es ophageal hiatal hernia. Mild atelectasis in the lung bases. Mild degenerative art hritis both hips and sacroiliac joints. Mild anterolisthesis of L4 on L5. IMPRESSION: 1. No acute findings in the abdomen or p oscar. 2. Indeterminant 1.1 x 0.9 cm enhancing lesion within the head of the pancreas. Considerations include neuroendocrine tu mor and vascular lesion. Triple phase pancreas CT would be helpful for further evaluation. Antonia LLANES CT PROCEDURES documented in this encounter Visit Diagnoses Diagnosis Pain Right Lower Quadrant documented in this encounter Administered Medications Inactive Administered Medications - up to 3 most recent administrations Medication Order MAR Action Action Date Dose Rate Site iohexol 300 mg iodine/mL solution Given 04/09/2018 8:29 AM CDT 1 00 mL 100 mL (OMNIPAQUE) 100 mL, intravenous, Once in imaging, contrast, Starting on Thu04/09/18 at 0746, For 1 dose, If administered oral then dilute in 900 mL water sodium chloride 0.9 % flush 77 mL Given 04/09/2018 8:30 AM CDT 77 mL 77 mL, intravenous, Once, On Thu04/09/18 at 0800, For 1 dose sodium chloride injection 10 mL Given 04/09/2018 8:30 AM CDT 10 mL 10 mL, intravenous, As needed, line care, Starting on Thu04/09/18 at 0746 documented in this encounter Care Teams Pit Supervisor Relationship Specialty Start Date End Date Elsewhere, Pcp PCP - General Family Medicine 08/26/17 01/30/21 documented as of this encounter
--- OUTSIDE RECORDS SUMMARY | 2022-05-06 13:10 | XMS_ITS | Encounter Summary ---
:1935 Author Organization [facility] Address [address] [place] [address] Care Team Providers Name Role Phone Unavailable Primary Care Provider Unavailable Encounter Details Date Type Department Care Team Description 11/20/2016 Hospital Encounter HX [facility] Gretchen Holloway C.NDannPDann [address] [place] [address] (Wo rk) Social History Tobacco Use Types [...] daily. capsule documented as of this encounter Miscellaneous Notes Miscellaneous - Conversion, Historical Provider Ser - 11/20/2016 11:59 PM OPERATIONS AND MAINTENANCE TECHNICIAN Coding Summary-Paper Based CODING DATE: 11/26/2016 FINAL [facility] STATUS: * Discharged to Home or Self Care PAYOR: Medicare ADMIT DX: REASON FOR VISIT DX: FINAL DX: PRINCIPAL: Z12.31 Encounter for screening mammogram for malignant neoplasm of breast SECONDARY: R92.1 Mammographic calcification found on diagnostic imaging of breast Z98.890 Other specified postprocedural states PROCEDURES DOCTOR NAME DATE NOTE: The code number assigned matches the documented diagnosis and / or procedure in the patient's chart. However, the narrative phrase printed from the coding software may appear abbreviated, or result in slightly different terminology. Coded By: KARTHIKEYAN MENDIOLA Date Saved: 11/26/2016 12:22 pm Source: [facility] Document Id: [id number] documented in this encounter Plan of Treatment Not on filedocumented as of this encounter Visit Diagnoses Not on filedocumented in this encounter
--- OUTSIDE RECORDS SUMMARY | 2022-05-06 13:10 | XMS_ITS | Encounter Summary ---
:1935 Author Organization [facility] Address [address] [place] [address] Care Team Providers Name Role Phone Unavailable Primary Care Provider Unavailable Encounter Details Date Type Department Care Team Description 09/24/2016 Hospital Encounter HX [facility] Cielo Carlson M.D. [address] [place] [phone] (Wo rk) Social History Tobacco Use [...]
--- OUTSIDE RECORDS SUMMARY | 2022-05-06 13:10 | XMS_ITS | Encounter Summary ---
:[address] [facility] Address [address] [place] [address] Care Team Providers Name Role Phone Unavailable Primary Care Provider Unavailable Encounter Details Date Type Department Care Team Description 06/09/2017 Hospital Encounter HX [facility] Wisam Aldrich, C.N.P. [address] [place] [address] (Wo rk) Social History Tobacco [...] Miscellaneous - Conversion, Historical Provider Ser - 06/09/2017 11:59 PM CDT Coding Summary-Paper Based CODING DATE: 06/13/[address] [facility] STATUS: * Discharged to Home or Self Care PAYOR: Medicare ADMIT DX: REASON FOR VISIT DX: FINAL DX: PRINCIPAL: Z13.820 Encounter for screening for osteoporosis SECONDARY: M85.851 Other specified disorders of bone density and structure, right thigh M85.852 Other specified disorders of bone density and structure, left thigh M85.88 Other specified disorders of bone density and structure, other site PROCEDURES DOCTOR NAME DATE NOTE: The code number assigned matches the documented diagnosis and / or procedure in the patient's chart. However, the narrative phrase printed from the coding software may appear abbreviated, or result in slightly different terminology. Coded By: KARTHIKEYAN MENDIOLA Date Saved: 06/13/2017 09:13 am Source: [facility] Document Id: [id number] documented in this encounter Plan of Treatment Not on filedocumented as of this encounter Visit Diagnoses Not on filedocumented in this encounter
--- OUTSIDE RECORDS SUMMARY | 2022-05-06 13:10 | XMS_ITS | Encounter Summary ---
:1935 Author Organization [facility] Address [address] [place] [address] Care Team Providers Name Role Phone Elsewhere, Pcp Primary Care Provider Unavailable Encounter Details Date Type Department Care Team Description 04/14/2018 Hospital Encounter Department of Antonia Aldrich Pancreas Laboratory Medicine M, C.N.P. ([facility]) in [place], [address] [place], [place] [address] [facility] [address] [place], [place] [phone] (Work) [phone] Social History Tobacco Use Types Packs/Day Years [...] Procedure Name Priority Date/Time Associated Comments Diagnosis CREATININE WITH Routine 04/14/2018 8:15 AM Lesion Pancreas Res ults for this EGFR, S/P CDT ([facility]) procedure are i n the results section. documented in this encounter Results (ABNORMAL) Creatinine with Estimated GFR (04/14/2018 8:15 AM CDT) P athologist Signature Creatinine 0.95 0.59 - 04/14/2018 [facility] 1.04 mg/dL 8:39 AM [facility] eGFR-Non 56 (L) >=60 04/14/2018 [facility] Black/ mL/min/BSA 8:39 AM [facility] [employer] [facility] Comment: ----ADDITIONAL INFORMATION---- Estimated GFR calculated using the 2009 CKD_EPI creatinine equation. eGFR-Black/ 65 >=60 mL/min/BSA 2017 8:39 AM [facility] Comment: ----ADDITIONAL INFORMATION---- Estimated GFR calculated using the 2009 CKD_EPI creatinine equation. Specimen Anatomical Collection Method Collection Time Receive d Time (Source) Location / / Volume Laterality Blood (Blood, 04/14/2018 8:15 AM 04/14/20 8:15 Venous) CDT AM CDT Antonia Aldrich C.N.P. LAB BLOOD ADD-ON Performing Organization Address City/State/ZIP Code Phon e Number [facility] [address] [place] [address] LAB documented in this encounter Visit Diagnoses Diagnosis Lesion Pancreas documented in this encounter Care Teams Side Panel Padder Relationship Specialty Start Date End Date Elsewhere, Pcp PCP - General Family Medicine 08/26/17 01/30/21 documented as of this encounter
--- OUTSIDE RECORDS SUMMARY | 2022-05-06 13:10 | XMS_ITS | Encounter Summary ---
:1935 Author Organization [facility] Address [address] [place] [address] Care Team Providers Name Role Phone Elsewhere, Pcp Primary Care Provider Unavailable Encounter Details Date Type Department Care Team Description 08/27/2017 Nurse Only Department of [facility] Cielo Daniels M.D. [address] [place] [phone] MedicineCounts Include [facility] At [facility] Kerri Mai APRN, C.N.P., D.N.P. [address] [place] [phone] Clinic, in [address] [phone] Social History Tobacco Use Types Packs/Day Years Used Date Smoking Tobacco: Never Sex Assigned at Date Recorded Not on file documented as of this encounter Plan of Treatment Not on filedocumented as of this encounter Visit Diagnoses Diagnosis Immunization Only - Primary documented in this encounter Care Teams Structural Architect Relationship Specialty Start Date End Date Elsewhere, Pcp PCP - General Family Medicine 08/26/17 01/30/21 documented as of this encounter
--- OUTSIDE RECORDS SUMMARY | 2022-05-06 13:10 | XMS_ITS | Encounter Summary ---
:1935 Author Organization [facility] Address [address] [place] [address] Care Team Providers Name Role Phone Unavailable Primary Care Provider Unavailable Encounter Details Date Type Department Care Team Description 08/24/2017 Abstract Department of Family Medicine, Provider, [facility], in [place], [place] [address], [place] [address] [facility] [phone] Social History Tobacco Use Types Packs/Day Years Used Date Smoking Tobacco: Never Sex Assigned at Date Recorded Not on file documented as of this encounter Plan of Treatment Not on filedocumented as of this encounter Visit Diagnoses Not on filedocumented in this encounter
--- OUTSIDE RECORDS SUMMARY | 2022-05-06 13:10 | XMS_ITS | Encounter Summary ---
:1935 Author Organization [facility] Address [address] [place] [id number] Care Team Providers Name Role Phone Unavailable Primary Care Provider Unavailable Encounter Details Date Type Department Care Team Description 04/07/2016 Hospital Encounter HX [facility] ED Jesus Alberto Samson P.A.-C. [address] [place] [address] [phone] (Wo rk) Social History Tobacco Use Types Packs/Day Years Used Date Smoking Tobacco: Never Assessed Sex Assigned at Date Recorded Not on file documented as of this encounter Last Filed Vital Signs Vital Sign Reading Time Taken Comments Blood Pressure 117/56 04/07/2016 2:18 PM CDT Pulse 65 04/07/2016 1:34 PM CDT Temperature - - Respiratory Rate 15 04/07/2016 11:28 AM CDT Oxygen Saturation - - Inhaled Oxygen Concentration - - Weight 69.8 kg (153 lb 14.1 oz) 04/07/2016 11:16 AM CDT Height - - Body Mass Index 27.71 10/08/2015 11:01 AM INVESTMENT COUNSELOR documented in this encounter Discharge Summaries Jakob Maradiaga R.N. - 04/07/2016 2:34 PM CDT ED Discharge Instructions [address] [id number] Name: KATHRYN LEON Date of : 1935 12:00 AM Visit Date: 04/07/2016 10:47 AM [facility] Number: [id number] Address: [address] [place] [phone] Primary Care Provider: LILIANA WHITING IMPORTANT: [facility] in [place] would like to thank you for allowing us to assist you with your healthcare needs. The following includes patient education materials and informationregarding your injury/illness. Diagnosis: Dehydration; Dizziness; Syncope NOS Follow-Up Instructions: With: Address: When: Follow up with primary care provider Within 2 - 4 days Comments: For recheck. Your Upcoming Appointments: Date Time Location Provider No Appointments found Patient Education Materials: Causes of Syncope Syncope (fainting) has many causes. Sometimes it is not serious. In other cases, syncope is a sign of a heart problem. But treatment can help. When Syncope Is Not Serious Your doctor may call your problem vasovagal syncope or orthostatic hypotension. These two types of syncope are not serious. They can be caused by: ?? Strong feelings, such as anxiety or fear. A nerve signal may briefly change your heart rate and lower your blood pressure too much. ?? Standing for too long. Standing may cause blood to pool in your legs. When this happens, your brain may not receive all the blood it needs. ?? Standing up too quickly. Your blood pressure may not adjust fast enough to changes in posture andmay drop too low. Certain medications can also cause this problem. When Heart Trouble Causes Syncope A heart problem can decrease the amount of oxygen-rich blood that reaches the brain. Heart trouble can be serious and may even be fatal if left untreated. ?? A Slow Heart Rate: Electrical signals tell the chambers of the heart when to pump. But the signals may be slowed or blocked (heart block) as they travel on the hearts pathways. This can be caused byaging, scarred heart tissue, or damage from heart disease. When the heart rate slows, not enough blood is pumped. ?? A Fast Heart Rate: Certain problems can make the heart race. For instance, after a heart attack, also known as acute myocardial infarction, or AMI, abnormal electrical signals may be created. These signals can make the heart suddenly beat very fast. The heart pumps before the chambers can fill withblood. So less blood reaches the brain and other parts of the body. Illegal drugs, certain medications, heart disease, or an inherited condition can also cause this. ?? A Heart Valve Problem: Blood travels through the chambers of the heart as it is pumped. Heart valves open and close to help move blood in the right direction. But a valve may not open or close fully, if its hardened or scarred. As a result, less blood is pumped through the heart to the brain and body. ?? [id number] [facility], [address] [place] [address], [place] [address]. All rights reserved. This information is not intended as a substitute for professional medical care. Always follow your healthcare professional's instructions. Dizziness [Uncertain Cause] Dizziness is a common symptom sometimes described as lightheadedness or feeling like you are goingto faint. If it lasts for only a few seconds and is related to changes in position (such as getting up after lying or sitting for a long time), it is usually not a sign of anything serious. Dizziness that lasts for minutes to hours, or comes on for no apparent reason, may be a sign of a more serious problem (such as dehydration, a medicine reaction, disease of the heart or brain). Today's exam did not show an exact cause for your dizzy spell . Sometimes additional tests are required before a cause can be found. Therefore, it is important to follow up with your doctor if your symptoms continue. Home Care: 1) If a dizzy spell occurs and lasts more than a few seconds, lie down until it passes. If you are lying down, then you cannot hurt yourself by falling if you do faint. 2) Do not drive or operate dangerous equipment until the dizzy spells have stopped for at least 48 hours. 3) If dizzy spells occur with sudden standing, this may be a sign of mild dehydration. Drink extra fluids over the next few days. 4) If you recently started a new medicine or if you had the dose of a current medicine increased (especially blood pressure medicine), talk with the prescribing doctor about your symptoms. Dose adjustments may be needed. Follow Up with your doctor for further evaluation within the next seven days, if your symptoms continue. Get Prompt Medical Attention if any of the following occur: -- Worsening of your symptoms -- Fainting, headache or seizure -- Repeated vomiting -- Feeling like you or the room is spinning -- Chest, arm, neck, back or jaw pain -- Palpitations (the sense that your heart is fluttering or beating fast or hard) -- Shortness of breath -- Blood in vomit or stool (black or red color) -- Weakness of an arm or leg or one side of the face -- Difficulty with speech or vision ?? [facility], [address] [place] [address]. All rights reserved. This information is not intended as a substitute for professional medical care. Always follow your healthcare professional's instructions. Dehydration The human body is comprised largely of water. If you lose more fluids than you take in, you can become dehydrated. This means there are not enough fluids in your body for it to function right. Mild dehydration can cause weakness, confusion, or muscle cramps. In extreme cases, it can lead to brain damage and even . That's why prompt treatment is crucial. Risk Factors Anyone can become dehydrated. But infants, children, and older adults are at greatest risk. You are most likely to lose fluids with severe vomiting, diarrhea, or a fever. Exercising or working hard--especially in hot weather--can also cause excess fluid loss. What to Do Drinking liquids is the best way to prevent dehydration. Water is best, but juice or frozen pops canalso help. Your doctor may suggest electrolyte solutions for sick infants and young children. When to Go to the Emergency Room (ER) Go to an ER right away for these symptoms: Adults ?? Very dark urine and little urine output ?? Dizziness, weakness, confusion, fainting Children ?? Sunken eyes ?? Little or no urine output (for infants, no wet diaper in 8 hours) ?? Very dark urine ?? Skin that doesn't bounce back quickly when pinched ?? Crying without tears What to Expect in the ER Your blood pressure, temperature, and heart rate will be checked. You may have blood or urine tests. The main treatment for dehydration is fluids. You may be given these to drink. Or, you may receive them through a vein in your arm. You also may be treated for diarrhea, vomiting, or a high fever. ?? [facility], [address] [place] [address]. All rights reserved. This information is not [...] if you dont have one. Go to [email or web address] and click on Create Your Account. Then, follow the directions to complete the online form. Youll be asked for your [facility] number which you can find at the top of this document. ED Tests and Procedures: Order Status Comprehensive Metabolic Panel Completed CBC (includes Auto Differential) Completed Thyroid Stimulating Hormone Completed Troponin T Completed CT Abdomen/Pelvis w/ contrast Completed Urinalysis with Microscopic Canceled Lactic Acid Completed Automated Diff-5 Part Completed Discharge Prescriptions & Home Medications: Medication/Strength Dose Route Frequency Indications/Special Instructions/Comments/Notes ondansetron (Zofran ODT 4 mg oral tablet, disintegrating) 4 mg Oral three times a day metroNIDAZOLE (metroNIDAZOLE) 500 mg Oral three times a day ciprofloxacin (Cipro) 500 mg Oral every 12 hours gabapentin (gabapentin 300 mg oral capsule) 900 mg Oral once a day fluticasone nasal (Flonase 50 mcg/inh nasal spray) 2 spray(s) Nostrils(Both) once a day fexofenadine-pseudoephedrine (Rochelle-D 12 Hour 60 mg-120 mg oral tablet, extended release) 1 tab(s)Oral two times a day rondaplainfielddaria/buffalo [phone] estradiol topical (Vagifem 10 mcg vaginal tablet) 10 mcg Vaginal 2 times a week Member No [phone] omeprazole (omeprazole 40 mg oral delayed release capsule) 40 mg Oral two times a day 30-60 min prior to meals / last saw patient 03/30/15, no mention of f/u, but referred patient to Dr. Mosley at [facility] meclizine (meclizine 12.5 mg oral tablet) 1-2 [...] nurse or physician. Patient Signature or Responsible Libertarian/Relationship Date Time Provider Signature Date Time IMPORTANT: [...] a ride home with a responsible democrat. I KATHRYN LEON , or responsible democrat have received this information and my questions have been answered. I have discussed any challenges I see with this plan with the nurse or physician. Patient Signature or Responsible Libertarian/Relationship Date Time Provider Signature Date Time This document has images extracted. Please consider using [employer] for all your patient education needs. Source: [facility] POWERCHART Document Id: [id number] Jakob Maradiaga R.N. - 04/07/2016 2:34 PM CDT ED Depart Summary [facility] Emergency Department Clinical Discharge Summary PERSON INFORMATION Name KATHRYN LEON Age 81 Years 1935 12:00 AM Sex Female Language Slovenian PCP PCP, ELSEWHERE Marital Status Visit Id Visit Reason Syncope/Near syncope; fainting Specialty Enc Type Emergency Med Service Emergency Medicine Referred by Track Group [facility] ED Discharge 04/07/2016 2:34 PM Tracking Id [id number] Checkout 04/07/2016 2:34 PM Checkin 04/07/2016 10:47 AM Acuity 2 -Emergent Dispo Type * Discharged to Home or Self Care Arrival 04/07/2016 10:47 AM Reg Status Complete LOS 000 03:47 Address: [address] [place] [phone] Comment: PROVIDER INFORMATION Provider Role Provider Contact Time JAKOB MARADIAGA PASSENGER CAR INSPECTOR Nurse 04/07/16 10:49 JESUS ALBERTO ALFONSO ED Provider 04/07/16 10:53 CORIE DUTTA PASSENGER CAR INSPECTOR Nurse 04/07/16 12:00 CORIE DUTTA PASSENGER CAR INSPECTOR Nurse 04/07/16 12:00 DIAGNOSIS Dehydration; Dizziness; Syncope NOS Comment: PATIENT EDUCATION INFORMATION Instructions: Causes of Syncope; DIZZINESS, Unk Cause; Dehydration Follow up: With: Address: When: Follow up with primary care provider Within 2 - 4 days Comments: For recheck. Source: [facility] POWERCHART Document Id: [id number] documented in this encounter Medications at Time [...] as needed. documented as of this encounter ED Notes Jakob Maradiaga R.N. - 04/07/2016 2:33 PM CDT ED Education ED Education Entered On: 04/07/2016 14:33 CDT Performed On: 04/07/2016 14:33 CDT by JAKOB MARADIAGA RN Education ED Education Grid Topics : Other: Clear Liquid, Full Liquid, BRAT, Regular diet, increased electrolite intake Individuals Taught : Patient Barriers to Learning : None evident Teaching Method : Explanation Teaching Evaluation : Verbalizes understanding JAKOB MARADIAGA RN - 04/07/2016 14:33 CDT Source: [facility] [employer] Document Id: [id number] CDT!9 Jakob Maradiaga R.N. - 04/07/2016 2:24 PM CDT ED Disposition Summary ED Disposition Summary Entered On: 04/07/2016 14:24 CDT Performed On: 04/07/2016 14:24 CDT by JAKOB MARADIAGA RN ED Disposition Summary Present in Room During Exam/Procedure : Spouse Mode of Discharge : Ambulatory Transportation : Private vehicle Discharge From ED With : Home Med List Printed Discharge Instructions Given to Patient : Yes Patient Status at Discharge from ED : Improved JAKOB MARADIAGA RN - 04/07/2016 14:24 CDT Source: [facility] Document Id: [id number] CDT!8 Jakob Maradiaga R.N. - 04/07/2016 2:23 PM CDT ED Pain Assessment ED Pain Assessment Entered On: 04/07/2016 14:23 CDT Performed On: 04/07/2016 14:23 CDT by JAKOB MARADIAGA RN Pain Assessment Pain Symptoms : Yes JAKOB MARADIAGA RN - 04/07/2016 14:23 CDT Pain Scale Pain Scale Verbal 0-10 : Open JAKOB MARADIAGA RN - 04/07/2016 14:23 CDT Pain Pain Assessment Grid Pain 1 Location : Abdomen Intensity : 2 JAKOB MARADIAGA RN - 04/07/2016 14:23 CDT Source: [facility] Document Id: [id number] CDT!10 Jakob Maradiaga R.N. - 04/07/2016 2:19 PM CDT ED Treatments and Procedures ED Treatments and Procedures Entered On: 04/07/2016 14:23 CDT Performed On: 04/07/2016 14:19 CDT by JAKOB MARADIAGA RN Cardiac Monitoring Monitoring Lead : II Monitoring Lead Summer Clerk : Discontinued Cardiac Rhythm Tech : Sinus rhythm JAKOB MARADIAGA RN - 04/07/2016 14:19 CDT Peripheral IV Peripheral IV Assess/Intervention Grid Peripheral IV #1 Peripheral IV #2 IV Activity : Discontinue Discontinue Removal : Catheter intact, Hemostasis within expected timeframe Catheter intact, Hemostasis within expected timeframe Date of Insertion : 04/07/2016 CDT 04/07/2016 CDT Discontinued Date : 04/07/2016 CDT 04/07/2016 CDT IV Site : Wrist Radial Laterality : Right Left Catheter Size : 20 18 Catheter Type : Protective Primary Tubing Changed : 04/07/2016 CDT JAKOB MARADIAGA RN - 04/07/2016 14:19 CDT JAKOB MARADIAGA RN - 04/07/2016 14:19 CDT Source[facility] Document Id: [id number] CDT!25 Jakob Maradiaga R.N. - 04/07/2016 1:35 PM CDT ED Nurse Reassess ED Nurse Reassess Entered On: 04/07/2016 13:37 CDT Performed On: 04/07/2016 13:35 CDT by JAKOB AMRADIAGA RN Pain Assessment Pain Symptoms : Yes JAKOB MARADIAGA RN - 04/07/2016 13:35 CDT Pain Scale Pain Scale Verbal 0-10 : Open JAKOB MARADIAGA RN - 04/07/2016 13:35 CDT Pain Pain Assessment Grid Pain 1 Location : Abdomen Intensity : 2 (Comment: ache [JAKOB MARADIAGA RN - 04/07/2016 13:35 CDT] ) JAKOB MARADIAGA RN - 04/07/2016 13:35 CDT Comfort Measures Comfort Measures Response : Comfort level increased JAKOB MARADIAGA RN - 04/07/2016 13:35 CDT Resp Reassess Respiratory Patient Stated Symptoms : None JAKOB MARADIAGA RN - 04/07/2016 13:35 CDT CV Reassess CV Patient Stated Symptoms : Fatigue JAKOB MARADIAGA RN - 04/07/2016 13:35 CDT Neuro Reassess Last Well Time Known : Not applicable Orientation : Oriented x 3 Characteristics of Speech : Appropriate for age Level of Consciousness : Alert Neuro Patient Stated Symptoms : Headache, Weakness Gait : Steady Neuro Note : able to ambulate to the restroom with stand by assist experienced dizziness JAKOB MARADIAGA RN - 04/07/2016 13:35 CDT Nabil Coma Eye Opening Response Nabil : Spontaneously Best Verbal Response [place] : Oriented Best Motor Response Nabil : Obeys simple commands [place] Coma Score : 15 JAKOB MARADIAGA RN - 04/07/2016 13:35 CDT Behavioral Health Screen/Safety Reassmt Affect/Behavior : Calm, Cooperative, Appropriate JAKOB MARADIAGA RN - 04/07/2016 13:35 CDT GI Reassess GI Patient Stated Symptoms : Abdominal pain JAKOB MARADIAGA RN - 04/07/2016 13:35 CDT /OB Reassess Patient Stated Symptoms : None JAKOB MARADIAGA RN - 04/07/2016 13:35 CDT Integumentary Integumentary Patient Stated Symptoms : None JAKOB MARADIAGA RN - 04/07/2016 13:35 CDT Skin Abnormality/Location Grid Location : Other: upper/ lower arms Laterality : Left, Right Abnormality : Bruising JAKOB MARADIAGA RN - 04/07/2016 13:35 CDT [facility] Document Id: [id number] CDT!42 Jakob Maradiaga R.N. - 04/07/2016 11:28 AM CDT ED Primary Assessment Document Has Been Updated ED Primary Assessment Entered On: 04/07/2016 11:37 CDT Performed On: 04/07/2016 11:28 CDT by JAKOB MARADIAGA RN Reason For Visit (As Of: 04/07/2016 11:37:52 CDT) Problems(Active) Abnormal Liver Function Test (ICD-9-CM :790.6 ) Name of Problem: Abnormal Liver Function Test ; Onset Date: 10/05/2014 ; Recorder: ALBANIA VARMA CNP, YURI; Confirmation: Confirmed ; Classification: Medical ; Code: 790.6 ; Contributor System: [employer] ; Last Updated: 11/17/2014 12:51 INVESTMENT COUNSELOR ; Life CycleStatus: Active ; Responsible Provider: ALBANIA VARMA CNP, DNP; Vocabulary: ICD-9-CM Allergic rhinitis, unspecified (ICD-9-CM :477.9 ) Name of Problem: Allergic rhinitis, unspecified ; Onset Date: 1952 ; Recorder: PATTI ALMENDAREZ LPN; Confirmation: Confirmed ; Classification: Nursing ;Code: 477.9 ; Contributor System: [employer] ; Last Updated: 01/21/2011 10:04 CDT ; [...] Nursing ; Code: 714.0 ; Contributor System: [employer] ; Last Updated: 10/25/2010 20:18 INVESTMENT COUNSELOR ; Life Cycle Date: 10/25/2010 ; Life Cycle Status: Active ; Responsible Provider: PATTI ALMENDAREZ LPN; Vocabulary: ICD-9-CM Atrophic vaginitis (ICD-9-CM :627.3 ) Name of Problem: Atrophic vaginitis ; Onset Date: 07/27/2012 ;Recorder: ALBANIA VARMA CNP, DNP; Confirmation: Confirmed ; Classification: Medical ; Code: 627.3 ;Last Updated: 07/27/2012 11:32 INVESTMENT COUNSELOR ; Life Cycle Status: Active ; Responsible Provider: ALBANIA VARMA CNP, DNP; Vocabulary: ICD-9-CM Bursitis Hip/Trochanertic (ICD-9-CM :726.5 ) Name of Problem: Bursitis Hip/Trochanertic ; Onset Date: 10/20/2011 ; Recorder: ALBANIA VARMA CNP, DNP; Confirmation: Confirmed ; Classification: Medical ;Code: 726.5 ; Last Updated: 10/20/2011 9:54 INVESTMENT COUNSELOR ; Life Cycle Status: Active ; Responsible Provider: ALBANIA VARMA CNP, DNP; Vocabulary: ICD-9-CM Cataract NOS (ICD-9-CM :366.9 ) Name of Problem: Cataract NOS ; Onset Date: 1991 ; Recorder: PATTI ALMENDAREZ LPN; Confirmation: Confirmed ; Classification: Nursing ; Code: 366.9 ; Contributor System: [employer] ; Last Updated: 01/21/2011 10:04 CDT ; Life Cycle Date: 10/25/2010 ; Life Cycle Status: Active ; Responsible Provider: PATTI ALMENDAREZ LPN; Vocabulary: ICD-9-CM ; Comments: 12/31/2010 12:11 - PATTI ALMENDAREZ LPN date unknown Celiac Disease (ICD-9-CM :579.0 ) Name of Problem: Celiac Disease ; Onset Date: 02/26/2007 ; Recorder: PATTI ALMENDAREZ LPN; Confirmation: Confirmed ; Classification: Nursing ; Code: 579.0 ; ContributorSystem: [employer] ; Last Updated: 10/25/2010 20:20 INVESTMENT COUNSELOR ; Life Cycle Date: 10/25/2010 ; Life Cycle Status: Active ; Responsible Provider: PATTI ALMENDAREZ LPN; Vocabulary: ICD-9-CM Chest wall pain* (ICD-9-CM :786.52 ) Name of Problem: Chest wall pain* ; Onset Date: 09/05/2013 ; Recorder: ALBANIA VARMA CNP, DNP; Confirmation: Confirmed ; Classification: Medical ; Code: 786.52 ; Last Updated: 02/01/2014 16:15 CDT ; Life Cycle Status: Active ; Responsible Provider: ALBANIA VARMA CNP, DNP; Vocabulary: ICD-9-CM 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 ) Name of Problem: Disease Vocal Cord ; Recorder: ALBANIA VARMA CNP, DNP; Confirmation: Confirmed ; Classification: Medical ; Code: J38.3 ; Contributor System: [employer]Chart ; Last Updated: 07/10/2015 10:30 CDT ; Life Cycle Status: Active ; Responsible Provider: ALBANIA VARMA CNP, DNP; Vocabulary: ICD-10-CM Diverticulitis of large intestine (ICD-9-CM :562.11 ) Name of Problem: Diverticulitis of large intestine ; Onset Date: 10/28/2010 ; Recorder: ALBANIA VARMA CNP, DNP; Confirmation: Confirmed ; Classification: Medical ; Code: 562.11 ; Last Updated: 10/28/2010 16:30 INVESTMENT COUNSELOR ; Life Cycle Status: Active ; Resp onsible Provider: ALBANIA VARMA CNP, DNP; Vocabulary: ICD-9-CM Eye disorder (ICD-9-CM :379.8 ) Name of Problem: Eye disorder ; Recorder: TAMMY ACEVES MD; Confirmation: Confirmed ; Classification: UPDATE NEEDED ; Code: 379.8 ; Contributor System: [employer] ; Last Updated: 11/12/2015 4:13 INVESTMENT COUNSELOR ; Life Cycle Date: 01/05/2012 ; Life Cycle Status: Active ; Responsible Provider: TAMMY ACEVES MD; Vocabulary: ICD-9-CM ; Comments: 01/21/2012 9:37 - BORDENMATTHEW MUNROE LPN date unknown Fracture of rib (SNOMED CT :29984465 ) Name of Problem: Fracture of rib ; Onset Date: 05/12/2013 ; Recorder: SUJATHA MAR LPN; Confirmation: Confirmed ; Classification: Nursing ; Code: 40409017 ;Contributor System: [employer] ; Last Updated: 06/07/2013 8:10 CDT ; Life Cycle Date: 06/07/2013 ; Life Cycle Status: Active ; Responsible Provider: SUJATHA MAR LPN; Vocabulary: SNOMED CT ; Comments: 06/07/2013 8:10 - SUJATHA MAR LPN left side Glaucoma (ICD-9-CM :365.44 ) Name of Problem: Glaucoma ; Onset Date: 1986 ; Recorder: PATTI ALMENDAREZ LPN; Confirmation: Confirmed ; Classification: Nursing ; Code: 365.44 ; Contributor System: [employer] ; Last Updated: 11/12/2015 4:13 INVESTMENT COUNSELOR ; Life Cycle Date: 10/25/2010 ; Life Cycle Status: Active ; Responsible Provider: PATTI ALMENDAREZ LPN; Vocabulary: ICD-9-CM ; Comments: 12/31/2010 12:11 - PATTI ALMENDAREZ LPN date unknown Glaucoma (SNOMED CT :03897750 ) Name of Problem: Glaucoma ; Recorder: TAMMY ACEVES MD; Confirmation: Confirmed ; Classification: Medical ; Code: 75067407 ; Contributor System: [employer]Chart ; Last Updated: 01/05/2012 18:52 CDT ; Life Cycle Date: 01/05/2012 ; Life Cycle Status: Active ; ResponsibleProvider: TAMMY ACEVES MD; Vocabulary: SNOMED CT ; Comments: 01/21/2012 9:37 - MATTHEW BORDEN Lee BAUTISTA date unknown Hernia, hiatal (ICD-9-CM :553.3 ) Name of Problem: Hernia, hiatal ; Onset Date: 10/31/2013 ; Recorder: ALBANIA VARMA CNP, DNP; Confirmation: Confirmed ; Classification: Medical ; Code: 553.3 ; Last Updated: 10/31/2013 11:53 INVESTMENT COUNSELOR ; Life Cycle Status: Active ; Responsible Provider: ALBANIA VARMA CNP, DNP; Vocabulary: ICD-9-CM Osteopenia (ICD-9-CM :733.90 ) Name of Problem: Osteopenia ; Onset Date: 02/26/1987 ; Recorder: PATTI ALMENDAREZ LPN; Confirmation: Confirmed ; Classification: Nursing ; Code: 733.90 ; Contributor System: [employer] ; Last Updated: 10/25/2010 20:19 INVESTMENT COUNSELOR ; Life Cycle Date: 10/25/2010 ; Life Cycle Status: Active ; Responsible Provider: PATTI ALMENDAREZ LPN; Vocabulary: ICD-9-CM Diagnoses(Active) Syncope/Near syncope Date: 04/07/2016 ; Diagnosis Type: Reason For Visit ; Confirmation: Confirmed ;Clinical Dx: Syncope/Near syncope ; Classification: Medical ; Clinical Service: Emergency medicine ;Code: PNED ; Probability: 0 ; Diagnosis Code: [id number] Triage Chief Complaint Description : See Triage: Diarrhea since last monday 04/02 after eating out, was in to see PCP on 04/03 am and prescribed some RX's, PT. had CT scan on Thursday and was in to ED Friday 04/06 pt. continues with weakness, REESE, nausea. Information Given By : Patient, Spouse Present in Room During Exam/Procedure : Spouse Mode of Arrival ED : Private vehicle Track : Medical Languages : Slovenian Patient Informed of Triage Location : Emergency department Vital Signs Assessed : Yes GCS Assessed : Yes Treatments Prior to Arrival : IV insertion Is Patient Female and 13-50 no hysterectomy : No JAKOB MARADIAGA RN - 04/07/2016 11:28 CDT Vital Signs Temperature Core : 35.4 DegC(Converted to: 95.7 DegF) (LOW) (Comment: diaphoretic/ cool washcloth on foreheadapplied warm blankets [ZACHARIAH MAITESITAJose A Jhaveri RN - 04/07/2016 11:28 CDT] ) Apical Heart Rate : 58 /min (LOW) Respiratory Rate : 15 /min Systolic Blood Pressure : 119 mmHg Diastolic Blood Pressure : 56 mmHg NIBP Mean : 77 mmHg BP Location : Left upper extremity SpO2 : 100 % Oxygen Therapy : Room air Height : 163 cm(Converted to: 5 ft 4 inch(es)) JAKOB MARADIAGA RN - 04/07/2016 11:28 CDT Nabil Coma Eye Opening Response Nabil : Spontaneously Best Verbal Response Nabil : Oriented Best Motor Response Nabil : Obeys simple commands Nabil Coma Score : 15 JAKOB MARADIAGA RN - 04/07/2016 11:28 CDT Pain Assessment Pain Symptoms : Yes JAKOB MARADIAGA RN - 04/07/2016 11:28 CDT ED Physician Notification Time ED Physician Notification Time : 04/07/2016 10:53 CDT JAKOB MARADIAGA RN - 04/07/2016 11:28 CDT CAMI CAMI Level 1 : No CAMI Level 2 : No CAMI Level 3 : Many Vital Signs CAMI : Danger zone (HR > 100, RR > 20, SaO2 < 92%) JAKOB MARADIAGA RN - 04/07/2016 11:28 CDT DCP GENERIC CODE Tracking Acuity : 2 -Emergent Tracking Group : [facility] ED ZACHARIAH JAKOB Jhaveri RN - 04/07/2016 11:28 CDT Allergy (As Of: 04/07/2016 11:37:52 CDT) Allergies (Active) Glutens Estimated Onset Date: Unspecified ; Created By: PATTI ALMENDAREZ LPN; Reaction Status: Active; Category: Drug ; Substance: Glutens ; Type: Allergy ; Updated By: PATTI ALMENDAREZ LPN; Reviewed Date: 04/07/2016 11:33 CDT miconazole topical Comments: Comment 1: MICONAZOLE NITRATE ; Created By: Contributor_system [facility]; Reaction Status: Active ; Category: Drug ; Substance: miconazole topical ; Type: Unknown ;Updated By: Contributor_system, [facility]; Reviewed Date: 04/07/2016 11:33 CDT Nuts Estimated Onset Date: Unspecified ; Created By: PATTI ALMENDAREZ LPN; Reaction Status: Active ; Category: Food ; Substance: Nuts ; Type: Allergy ; Updated By: PATTI ALMENDAREZ LPN; Reviewed Date: 04/07/2016 11:33 CDT ID Screen Drug Resistant Organism : No JAKOB MARADIAGA Emilio LANG - 04/07/2016 11:28 CDT Immunizations Immunizations Current : Yes EDNAAMANDASuhasJAKOB mEilio RN - 04/07/2016 11:28 CDT Respiratory Airway : Patent Respirations : Unlabored Respiratory Pattern : Regular Oxygen Therapy : Room air Respiratory Detailed Assessment : Yes EDNAAMANDASuhasTANISHAJose A Jhaveri RN - 04/07/2016 11:28 CDT Resp Detailed Respiratory Patient Stated Symptoms : None Distress : None Cough : None Sputum Amount : None JAKOB MARADIAGA Emilio LANG - 04/07/2016 11:28 CDT Cardiovascular Heart Rhythm : Regular Skin Color : Normal for ethnicity Skin Description : Diaphoretic Skin Temperature : Cool Cardiovascular Detailed Assessment : Yes Monitoring Lead : II EDNAAMANDASuhasTANISHAJose A Jhaveri - 04/07/2016 11:28 CDT CV Detailed CV Patient Stated Symptoms : Dizziness, Fatigue Nail Bed Color : Powell Capillary Refill : Less than 2 seconds Heart Sounds ICU : S1S2 Cardiac Rhythm : Sinus rhythm, Sinus bradycardia Edema Assessment : No SUESuhasTANISHAJose A Jhaveri - 04/07/2016 11:28 CDT Neurological Last Well Time Known : Not applicable Level of Consciousness : Lethargic Orientation : Oriented x 3 Characteristics of Speech : Appropriate for age Neuro Patient Stated Symptoms : Dizziness, Faintness, Headache, Weakness Gait : Unable to assess Swallowing Difficulty/Aspiration Risk : None Loss of Consciousness : Unknown EDNAAMANDASuhsaJAKOB Emilio - 04/07/2016 11:28 CDT ED Psychosocial Affect/Behavior : Calm, Cooperative, Appropriate Domestic Abuse Concerns : None Behavioral Health Screen/Safety Assmt : No Emotional Support Available : Yes ZACHARIAH JAKOB Jhaveri RN - 04/07/2016 11:28 CDT Gastrointestinal Nutrition ED : Inadequate Nutrition ED Freetext : Clear liquid diet since 04/04 GI Detailed Assessment : Yes JAKOB MARADIAGA RN - 04/07/2016 11:28 CDT GI Detailed GI Patient Stated Symptoms : Abdominal pain, Nausea, Other: dry heaves Bowel Movement Last Date : 04/05/2016 CDT Abdomen Description : Symmetric Abdomen Palpation : Tender Tenderness : Left lower quadrant JAKOB MARADIAGA RN - 04/07/2016 11:28 CDT Bowel Sounds Grid LUQ : Normoactive RUQ : Normoactive LLQ : Hypoactive RLQ : Hypoactive JAKOB MARADIAGA RN - 04/07/2016 11:28 CDT /OB Assessment Patient Stated Symptoms : None JAKOB MARADIAGA RN - 04/07/2016 11:28 CDT Integumentary Integumentary Patient Stated Symptoms : Bruising JAKOB MARADIAGA RN - 04/07/2016 11:28 CDT Skin Abnormality/Location Grid Location : Other: upper/ lower arms Laterality : Left, Right Abnormality : Bruising Comments (Comment: previous IV attempts [JAKOB MARADIAGA - 04/07/2016 11:28 CDT] ) JAKOB MARADIAGA - 04/07/2016 11:28 CDT Musculoskeletal Fall Prevention Education Provided : Yes Musculoskeletal Note : generalized aches JAKOB MARADIAGA - 04/07/2016 11:28 CDT Social Habits Exposure to Tobacco Smoke : Care provider denies smoking in home, Other: never Smoking Status : Never smoker Tobacco 2A : No Tobacco Use/Currently Using : No Tobacco Use/Last 30 Days : No Tobacco Use/Last 12 months : No JAKOB MARADIAGA RN - 04/07/2016 11:28 CDT Alcohol Use Grid Alcohol Use : Yes Type : Liquor Frequency : Occasionally JAKOB MARADIAGA RN - 04/07/2016 11:28 CDT Recreational Drug Use Grid Drug Use : None JAKOB MARADIAGA - 04/07/2016 11:28 CDT [facility]: [id number] CDT!126 Jakob Maradiaga R.N. - 04/07/2016 11:16 AM CDT ED Triage Assessment Document Has Been Updated ED Triage Assessment Entered On: 04/07/2016 11:21 CDT Performed On: 04/07/2016 11:16 CDT by JAKOB MARADIAGA RN Reason For Visit (As Of: 04/07/2016 11:21:56 CDT) Problems(Active) Abnormal Liver Function Test (ICD-9-CM :790.6 ) Name of Problem: Abnormal Liver Function Test ; Onset Date: 10/05/2014 ; Recorder: ALBANIA VARMA CNP, DNP; Confirmation: Confirmed ; Classification: Medical ; Code: 790.6 ; Contributor System: [employer] ; Last Updated: 11/17/2014 12:51 INVESTMENT COUNSELOR ; Life CycleStatus: Active ; Responsible Provider: ALBAINA VARMA CNP, DNP; Vocabulary: ICD-9-CM Allergic rhinitis, unspecified (ICD-9-CM :477.9 [...] Nursing ; Code: 714.0 ; Contributor System: [employer] ; Last Updated: 10/25/2010 20:18 INVESTMENT COUNSELOR ; Life Cycle Date: 10/25/2010 ; Life Cycle Status: Active ; Responsible Provider: PATTI ALMENDAREZ LPN; Vocabulary: ICD-9-CM Atrophic vaginitis (ICD-9-CM :627.3 ) Name of Problem: Atrophic vaginitis ; Onset Date: 07/27/2012 ;Recorder: ALBANIA VARMA CNP, DNP; Confirmation: Confirmed ; Classification: Medical ; Code: 627.3 ;Last Updated: 07/27/2012 11:32 INVESTMENT COUNSELOR ; Life Cycle Status: Active ; Responsible Provider: ALBANIA VARMA CNP, DNP; Vocabulary: ICD-9-CM Bursitis Hip/Trochanertic (ICD-9-CM :726.5 ) Name of Problem: Bursitis Hip/Trochanertic ; Onset Date: 10/20/2011 ; Recorder: ALBANIA VARMA CNP, DNP; Confirmation: Confirmed ; Classification: Medical ;Code: 726.5 ; Last Updated: 10/20/2011 9:54 INVESTMENT COUNSELOR ; Life Cycle Status: Active ; Responsible Provider: ALBANIA VARMA CNP, DNP; Vocabulary: ICD-9-CM Cataract NOS (ICD-9-CM :366.9 ) Name of Problem: Cataract NOS ; Onset Date: 1991 ; Recorder: PATTI ALMENDAREZ LPN; Confirmation: Confirmed ; Classification: Nursing ; Code: 366.9 ; Contributor System: [employer] ; Last Updated: 01/21/2011 10:04 CDT ; Life Cycle Date: 10/25/2010 ; Life Cycle Status: Active ; Responsible Provider: PATTI ALMENDAREZ LPN; Vocabulary: ICD-9-CM ; Comments: 12/31/2010 12:11 - PTATI ALMENDAREZ LPN date unknown Celiac Disease (ICD-9-CM :579.0 ) Name of Problem: Celiac Disease ; Onset Date: 02/26/2007 ; Recorder: PATTI ALMENDAREZ LPN; Confirmation: Confirmed ; Classification: Nursing ; Code: 579.0 ; ContributorSystem: PowerChart ; Last Updated: 10/25/2010 20:20 INVESTMENT COUNSELOR ; Life Cycle Date: 10/25/2010 ; Life Cycle Status: Active ; Responsible Provider: PATTI ALMENDAREZ LPN; Vocabulary: ICD-9-CM Chest wall pain* (ICD-9-CM :786.52 ) Name of Problem: Chest wall pain* ; Onset Date: 09/05/2013 ; Recorder: ALBANIA VARMA CNP, DNP; Confirmation: Confirmed ; Classification: Medical ; Code: 786.52 ; Last Updated: 02/01/2014 16:15 CDT ; Life Cycle Status: Active ; Responsible Provider: ALBANIA VARMA CNP, DNP; Vocabulary: ICD-9-CM 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 ) Name of Problem: Disease Vocal Cord ; Recorder: ALBANIA VARMA CNP, DNP; Confirmation: Confirmed ; Classification: Medical ; Code: J38.3 ; Contributor System: [employer] ; Last Updated: 07/10/2015 10:30 CDT ; Life Cycle Status: Active ; Responsible Provider: ALBANIA VARMA CNP, DNP; Vocabulary: ICD-10-CM Diverticulitis of large intestine (ICD-9-CM :562.11 ) Name of Problem: Diverticulitis of large intestine ; Onset Date: 10/28/2010 ; Recorder: ALBANIA VARMA CNP, DNP; Confirmation: Confirmed ; Classification: Medical ; Code: 562.11 ; Last Updated: 10/28/2010 16:30 INVESTMENT COUNSELOR ; Life Cycle Status: Active ; Resp onsible Provider: ALBANIA VARMA CNP, DNP; Vocabulary: ICD-9-CM Eye disorder (ICD-9-CM :379.8 ) Name of Problem: Eye disorder ; Recorder: TAMMY ACEVES MD; Confirmation: Confirmed ; Classification: UPDATE NEEDED ; Code: 379.8 ; Contributor System: [employer] ; Last Updated: 11/12/2015 4:13 INVESTMENT COUNSELOR ; Life Cycle Date: 01/05/2012 ; Life Cycle Status: Active ; Responsible Provider: TAMMY ACEVES MD; Vocabulary: ICD-9-CM ; Comments: 01/21/2012 9:37 - MATTHEW BORDEN LPN date unknown Fracture of rib (SNOMED CT :15453005 ) Name of Problem: Fracture of rib ; Onset Date: 05/12/2013 ; Recorder: SUJATHA MAR LPN; Confirmation: Confirmed ; Classification: Nursing ; Code: 92946476 ;Contributor System: PowerChart ; Last Updated: 06/07/2013 8:10 CDT ; Life Cycle Date: 06/07/2013 ; Life Cycle Status: Active ; Responsible Provider: SUJATHA MAR LPN; Vocabulary: SNOMED CT ; Comments: 06/07/2013 8:10 - SUJATHA MAR LPN left side Glaucoma (ICD-9-CM :365.44 ) Name of Problem: Glaucoma ; Onset Date: 1986 ; Recorder: PATTI ALMENDAREZ LPN; Confirmation: Confirmed ; Classification: Nursing ; Code: 365.44 ; Contributor System: PowerChart ; Last Updated: 11/12/2015 4:13 INVESTMENT COUNSELOR ; Life Cycle Date: 10/25/2010 ; Life Cycle Status: Active ; Responsible Provider: PATTI ALMENDAREZ LPN; Vocabulary: ICD-9-CM ; Comments: 12/31/2010 12:11 - PATTI ALMENDAREZ LPN date unknown Glaucoma (SNOMED CT :01134236 ) Name of Problem: Glaucoma ; Recorder: TAMMY ACEVES MD; Confirmation: Confirmed ; Classification: Medical ; Code: 50876506 ; Contributor System: [employer]Chart ; Last Updated: 01/05/2012 18:52 CDT ; Life Cycle Date: 01/05/2012 ; Life Cycle Status: Active ; ResponsibleProvider: TAMMY ACEVES MD; Vocabulary: SNOMED CT ; Comments: 01/21/2012 9:37 - SUHAMATTHEW LPN date unknown Hernia, hiatal (ICD-9-CM :553.3 ) Name of Problem: Hernia, hiatal ; Onset Date: 10/31/2013 ; Recorder: ALBANIA VRAMA CNP, DNP; Confirmation: Confirmed ; Classification: Medical ; Code: 553.3 ; Last Updated: 10/31/2013 11:53 INVESTMENT COUNSELOR ; Life Cycle Status: Active ; Responsible Provider: ABLANIA VARMA CNP, DNP; Vocabulary: ICD-9-CM Osteopenia (ICD-9-CM :733.90 ) Name of Problem: Osteopenia ; Onset Date: 02/26/1987 ; Recorder: PATTI ALMENDAREZ LPN; Confirmation: Confirmed ; Classification: Nursing ; Code: 733.90 ; Contributor System: [employer]Chart ; Last Updated: 10/25/2010 20:19 INVESTMENT COUNSELOR ; Life Cycle Date: 10/25/2010 ; Life Cycle Status: Active ; Responsible Provider: PATTI ALMENDAREZ LPN; Vocabulary: ICD-9-CM Diagnoses(Active) Syncope/Near syncope Date: 04/07/2016 ; Diagnosis Type: Reason For Visit ; Confirmation: Confirmed ;Clinical Dx: Syncope/Near syncope ; Classification: Medical ; Clinical Service: Emergency medicine ;Code: PNED ; Probability: 0 ; Diagnosis Code: [id number] Triage Chief Complaint Description : 81 yo female presents to the ED from the clinic lab draw after vaso vagal response, pt. was lowered to the floor. Pt. was here from [facility] PCP Harman Aldrich for CTabdomen. Pt. started having sx diarrhea on 04/02 and has not gotten better. Information Given By : Patient, Spouse Present in Room During Exam/Procedure : Spouse Mode of Arrival ED : Private vehicle Track : Medical Languages : Slovenian Patient Informed of Triage Location : Emergency department Vital Signs Assessed : Yes GCS Assessed : Yes Treatments Prior to Arrival : IV insertion Is Patient Female and 13-50 no hysterectomy : No JAKOB MARADIAGA RN - 04/07/2016 11:16 CDT Vital Signs Temperature Core : 35.6 DegC(Converted to: 96.1 DegF) (LOW) Actual Weight : 69.8 kg Actual Weight Conversion to Pounds : 153.56 lb JAKOB MARADIAGA RN - 04/07/2016 11:16 CDT [place] Coma Eye Opening Response Nabil : To voice Best Verbal Response [place] : Oriented Best Motor Response [place] : Obeys simple commands [place] Coma Score : 14 JAKOB MARADIAGA RN - 04/07/2016 11:16 CDT Pain Assessment Pain Symptoms : Yes JAKOB MARADIAGA RN - 04/07/2016 11:16 CDT Pain Scale Pain Scale Verbal 0-10 : Open JAKOB MARADIAGA RN - 04/07/2016 11:16 CDT Pain Pain Assessment Grid Pain 1 Location : Abdomen Laterality : Left Intensity : 2 Time Pattern : Acute, Constant Quality : Aching, Other: black and blue it hurts Associated Symptoms : Nausea JAKOB MARADIAGA RN - 04/07/2016 11:16 CDT ED Physician Notification Time ED Physician Notification Time : 04/07/2016 10:53 CDT JAKOB MARADIAGA RN - 04/07/2016 11:16 CDT CAMI CAMI Level 1 : No CAMI Level 2 : No CAMI Level 3 : Many Vital Signs CAMI : Danger zone (HR > 100, RR > 20, SaO2 < 92%) JAKOB MARADIAGA RN - 04/07/2016 11:16 CDT DCP GENERIC CODE Tracking Acuity : 2 -Emergent Tracking Group : [facility] ED JAKOB MARADIAGA RN - 04/07/2016 11:16 CDT Allergy (As Of: 04/07/2016 11:21:56 CDT) Allergies (Active) Glutens Estimated Onset Date: Unspecified ; Created By: PATTI ALMENDAREZ LPN; Reaction Status: Active; Category: Drug ; Substance: Glutens ; Type: Allergy ; Updated By: PATTI ALMENDAREZ LPN; Reviewed Date: 04/07/2016 11:21 CDT miconazole topical Comments: Comment 1: MICONAZOLE NITRATE ; Created By: Contributor_system, [facility]; Reaction Status: Active ; Category: Drug ; Substance: miconazole topical ; Type: Unknown ;Updated By: Contributor_system, [facility]; Reviewed Date: 04/07/2016 11:21 CDT Nuts Estimated Onset Date: Unspecified ; Created By: PATTI ALMENDAREZ LPN; Reaction Status: Active ; Category: Food ; Substance: Nuts ; Type: Allergy ; Updated By: PATTI ALMENDAREZ LPN; Reviewed Date: 04/07/2016 11:21 CDT ID Screen Drug Resistant Organism : No JAKOB MARADIAGA RN - 04/07/2016 11:16 CDT [facility] Id: [id number] CDT!47 Jakob Maradiaga R.N. - 04/07/2016 11:04 AM CDT ED Treatments and Procedures ED Treatments and Procedures Entered On: 04/07/2016 11:24 CDT Performed On: 04/07/2016 11:04 CDT by JAKOB MARADIAGA RN Peripheral IV Peripheral IV Assess/Intervention Grid Peripheral IV #1 Peripheral IV #2 IV Activity : Other: IV START IN CLINIC LAB Start Number of Attempts : 1 Date of Insertion : 04/07/2016 CDT 04/07/2016 CDT IV Site : Wrist Radial Laterality : Right Left Catheter Size : 20 18 Catheter Type : Protective Site Condition : No complications No complications Drainage Description : None None Primary Tubing Changed : 04/07/2016 CDT Site/Line Care : Secured with tape Secured with tape Dressing/ Activity : Dry, Intact, Transparent Dry, Intact, Transparent Flow/ Patency : No complications No complications IV Equipment/Supplies : Pump, infusion Extension, set JAKOB MARADIAGA RN - 04/07/2016 11:22 CDT JAKOB MARADIAGA RN - 04/07/2016 11:22 CDT Source: [facility] Document Id: [id number] CDT!30 Jakob Maradiaga R.N. - 04/07/2016 11:00 AM CDT ED Treatments and Procedures ED Treatments and Procedures Entered On: 04/07/2016 11:25 CDT Performed On: 04/07/2016 11:00 CDT by JAKOB MARADIAGA RN Cardiac Monitoring Monitoring Lead : II Monitoring Lead Summer Clerk : Initiated Cardiac Rhythm Tech : Sinus rhythm JAKOB MARADIAGA RN - 04/07/2016 11:25 CDT Source: [facility] Document Id: [id number] CDT!5 Jesus Alberto Samson P.A.-C. - 04/07/2016 10:53 AM CDT Syncope/Near syncope Patient: KATHRYN LEON Age: 81 years Sex: Female : 1935 Author: JESUS ALBERTO ALFONSO Attachments: None Associated Diagnosis: Dehydration; Dizziness; Syncope NOS Basic Information History source: Patient. Arrival mode: stretcher. History limitation: None. Additional information: Chief Complaint from Nursing Triage Note : Chief Complaint Description 04/06/2016 10:11 CDT Chief Complaint Description presents with severe nausea. Was diagnosed with diverticulitis at her primary care clinic on Thursday and was started on cipro and flagyl and unable to keep them down . History of Present Illness Pt was in the hospital lab for blood draws when a rapid response team was called. Staff reports thatpt was sitting in the chair for a blood draw when she had a syncopal episode. Staff was able to lie her on the floor and were starting an iv. Pt is groggy but able to answer questions. Currently deniesCP or SOB. Denies REESE. Feels dizzy. C/o feeling nauseous. Had recent v/d. Has had L lower abdominal pain. Pt was seen in this ED on 04/06/16 after being seen in the [facility] . She tells me that she had quite a bit of v/d Thursday night while eating at a restaurant. That resolved overnight but she was not feeling well yet . She was having LLQ pain and was afraid she was having a diverticulitis flare. She was sent to this hospital for a CT which was inconclusive at the time. She was started on Cipro and Flagyl by her PCP. She remained on a clear liquid diet over the weekend (with headindices in the lower 100s) likely not consuming enough calories. She did have toast and an egg yesterday. She was at the [facility] clinic again this morning and was sent to this hospital for labs and a repeat CT. Harman Kendrick NP, had contacted me prior and I had suggested she be seen in the ED if her PCP was concerned. Pt admits she still just isn't feeling well overall. Low energy. Dizzy at times. Not vertiginous but light headed. Poor appetite and tired. Review of Systems Constitutional symptoms: Weakness and fatigue, but no fever. Skin symptoms: Negative except as documented in HPI. Eye symptoms: Negative except as documented in HPI. ENMT symptoms: Negative except as documented in HPI. Respiratory symptoms: No shortness of breath or no cough. Cardiovascular symptoms: Syncope, but no chest pain, no palpitations or no tachycardia. Gastrointestinal symptoms: Abdominal pain, nausea and V/D resolved though vomited once in lab after syncopal episode.. Genitourinary symptoms: Negative except as documented in HPI. Musculoskeletal symptoms: Negative except as documented in HPI. Neurologic symptoms: Dizziness, but no headache or no altered level of consciousness. Psychiatric symptoms: Negative except as documented in HPI. Endocrine symptoms: Negative except as documented in HPI. Hematologic/Lymphatic symptoms: Negative except as documented in HPI. Allergy/immunologic symptoms: Negative except as documented in HPI. Health Status Allergies: Allergic Reactions (Selected) Severity Not Documented Glutens- No reactions were documented. Nuts- No reactions were documented. Nonallergic Reactions (Selected) Severity Not Documented Miconazole topical- No reactions were documented.. Medications: (Selected) Inpatient Medications Ordered NS Bolus: 90 mL, IV Push, Once NS Bolus: 90 mL, IV Push, Once Saline flush: 10 mL, IV Push, Once Saline flush: 10 mL, IV Push, Once Zofran ODT: 8 mg, 2 tab(s), PO, Once iohexol 300 mg/mL: 140 mL, IV Push, Once iohexol 300 mg/mL: 140 mL, IV Push, Once sodium chloride 0.9% 1,000 mL: 1,000 mL/hr, IV Prescriptions Prescribed Rochelle-D 12 Hour 60 mg-120 mg oral tablet, extended release: 1 tab(s), PO, 2xDay, 180 tab(s), 3 Refill(s) Flonase 50 mcg/inh nasal spray: 2 spray(s), Nostrils(Both), Daily, 3 each, 1 Refill(s) Vagifem 10 mcg vaginal tablet: 10 mcg, Vaginal, 2xWeek, Member No [phone], 26 tab(s), 2 Refill(s) gabapentin 300 mg oral capsule: 900 mg, 3 cap(s), PO, Daily, 270 cap(s), 0 Refill(s) meclizine 12.5 mg oral tablet: 1-2 tab(s), PO, 3xDay, 60 tab(s), PRN: Dizziness omeprazole 40 mg oral delayed release capsule: 40 mg, 1 cap(s), PO, 2xDay, 30-60 min prior to meals,90 cap(s), 2 Refill(s) Documented Medications Documented Cipro: 500 mg, PO, q12hr Citracal: 1tab, 2xDay Cosopt ophthalmic solution: 1 drop(s), Daily, in the right eye only Multiple Vitamins oral tablet: 1 tab(s), PO, Daily, 30 tab(s) Restasis: one drop, Eyes(Both), q12hr Vitamin B-12: 1,000 mcg, PO, Daily Zofran ODT 4 mg oral tablet, disintegratin mg, 1 tab(s), PO, 3xDay ferrous sulfate 325 mg (65 mg elemental iron) oral tablet: 325 mg, 1 tab(s), PO, Daily metroNIDAZOLE: 500 mg, PO, 3xDay. 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 Comments: 12/31/2010 CDT 12:11 CDT - PATTI ALMENDAREZ LPN date unknown Glaucoma NOS (365.9): Resolved.. Surgical history: Upper gastrointestinal endoscopy ([id number]) on 11/30/2013 at 78 Years. MAMMOGRAM ([id number]) on 08/25/2013 at 78 Years. Comments: 10/31/2013 11:24 - SUJATHA MAR LPN Atilio Normal may resume in [place] strang Mammogram ([id number]) on 07/15/2012 at 77 Years. Diagnostic colonoscopy ([id number]) on 03/25/2011 at 76 Years. Comments: 03/25/2011 08:49 - SAGRARIO NOLAND MD Sigmoid diverticulosis--not inflamed. Dual-energy X-ray absorptiometry (DXA), bone density study, 1 or more sites; axial skeleton (eg, hips, pelvis, spine).. ([id number]) in the week of 08/14/2010 at 75 Years. Comments: 10/25/2010 09:40 - CARMELO RHODES Hx: [id number] - BONE DEN HIPS/PEL/SP 08/01/2013 19:17 - Contributor source changed to PowerChart. Mammogram ([id number]) on 07/22/2010 at 75 Years. Mammogram ([id number]) on 06/28/2010 at 75 Years. Laminectomy approach to lumbar spine ([id number]) in 2008 at 74 Years. Colonoscopy ([id number]) on 02/01/2009 at 73 Years. Extracapsular cataract removal with insertion of intraocular lens prosthesis (1 stage procedure), manual or mechanical technique (eg, irrigation and aspiration or phacoemulsification) ([id number]) on 02/26/2007 at 72 Years. Comments: 10/25/2010 20:26 - ERICKSON, PATTI L TURNSTILE ATTENDANT left HC COLONOSCOPY W SNARE REMOVAL TUMOR/POLYP/LESION - 12/31/06 on 12/31/2006 at 71 Years. HC ANTER COLPORRHAPHY,BLAD/VAGINA - 03/22/01 - ANTERIOR POSTERIOR REPAIR on 03/22/2001 at 66 Years. HC FLEX SIGMOIDOSCOPY W/WO JAMES SPEC BY BRUSH/WASH - on 06/14/1999 at 64 Years. Repair of cystocele ([id number]) in 1994 at 60 Years. Reduction mammaplasty () on 02/26/1982 at 47 Years. Hysterectomy ([id number]) on 11/04/1966 at 31 Years. Comments: 03/25/2011 08:51 - SAGRARIO NOLAND MD Vaginal Hemorrhoidectomy, internal and external, single column/group; ([id number]) on 02/26/1959 at 24 Years. C GLAUCOMA [...] Down syndrome Brother Celiac disease Brother . Social history: Family/social situation: . Problem list: All Problems (Selected) Glaucoma / 365.44 / Confirmed Cataract NOS / 366.9 / Confirmed Eye disorder / 379.8 / Confirmed Glaucoma / [id number] / Confirmed Allergic rhinitis, unspecified / 477.9 / Confirmed Hernia, hiatal / 553.3 / Confirmed Diverticulitis of large intestine / 562.11 / Confirmed Fracture of rib / [id number] / Confirmed Celiac Disease / 579.0 / Confirmed Atrophic vaginitis / 627.3 / Confirmed Arthritis, rheumatoid* / 714.0 / Confirmed Bursitis Hip/Trochanertic / 726.5 / Confirmed Osteopenia / 733.90 / Confirmed Chest wall pain* / 786.52 / Confirmed Abnormal Liver Function Test / 790.6 / Confirmed Disease Vocal Cord / J38.3 / Confirmed. Physical Examination Vital Signs: Vital Signs 04/06/2016 10:11 CDT Temperature Core 36.2 DegC LOW Peripheral Pulse Rate 76 /min Respiratory Rate 16 /min SpO2 98 % Systolic Blood Pressure 141 mmHg HI Diastolic Blood Pressure 75 mmHg Mean Arterial Pressure 97 mmHg BP Location Left upper , SpO2 04/06/2016 10:11 CDT SpO2 98 % . General: In lab, pt is lying on back. Groggy. Able to answer questions. . [place] coma scale: Eye response: 4 /4, verbal response: 5 /5 and motor response: 6 /6. Neurological: Alert and oriented to person, place, time, and situation, normal sensory observed, normal motor observed, normal speech observed and normal coordination observed. Skin: Warm and dry. Head: Normocephalic and atraumatic. Eye: Pupils are equal, round and reactive to light and extraocular movements are intact. Ears, nose, mouth and throat: Oral mucosa moist. Cardiovascular: Regular rate and rhythm and Normal peripheral perfusion. Respiratory: Lungs are clear to auscultation, respirations are non-labored, breath sounds are equal and Symmetrical chest wall expansion. Gastrointestinal: Soft, Non distended and LLQ mild tenderness. Musculoskeletal: Normal ROM. normal strength. Psychiatric: Cooperative and appropriate mood & affect. Medical Decision Making Differential Diagnosis:Syncope, dysrhythmia, anemia, dehydration, dizziness, vasovagal episode. Documents reviewed:Emergency department nurses' notes, prior records. OrdersLaunch Orders Laboratory: Lactic Acid (Order Processing): Stat, 04/07/2016 10:54 CDT, Once Urinalysis with Microscopic (Order Processing): Stat, 04/07/2016 10:54 CDT, Once, Urine, Clean Void (Midstream) Patient Care: ED Peripheral IV Careset (Order Processing) Peripheral IV (Order Processing): 04/07/2016 10:54 CDT, Initial Line Pharmacy: Zofran (Order Processing): 4 mg, IV Push, Once Sodium Chloride 0.9% 1000 mL (Order Processing): 1,000 mL/hr, IV. Electrocardiogram:Vent. Rate : 059 BPM Atrial Rate : 059 BPM P-R Int : 158 ms QRS Dur : 090 ms QT Int : 456 ms P-R-T Axes : 062 032 046 degrees QTc Int : 451 ms Sinus bradycardia Nonspecific ST abnormality When compared with ECG of 06-NOV-2015 21:38, No significant change was found Referred By: JESUS ALBERTO ALFONSO Confirmed By:COLETTE RUVALCABA MD . Results review:Lab results : Lab View 04/07/2016 11:05 CDT Troponin-T <0.01 ng/mL Lactic Acid Lvl 1.3 mmol/L TSH 4.01 mIU/L 04/07/2016 10:46 CDT Hgb 15.0 g/dL Hct 41.6 % WBC 5.3 x10(9)/L RBC 4.75 x10(12)/L MCV 87.6 fL RDW 12.1 % Platelet 198 x10(9)/L Neutro Absolute 2.92 10(9)/L Lymph Absolute 1.56 x10(9)/L [place] Absolute 0.62 x10(9)/L Eos Absolute 0.15 x10(9)/L Baso Absolute 0.02 x10(9)/L Sodium Lvl 127.3 mM/L LOW Potassium Lvl 4.6 mmol/L Chloride 94 mmol/L LOW CO2 22.1 mmol/L LOW AGAP 11 mmol/L Alkaline Phosphatase 55 U/L Glucose Lvl 103 mg/dL Creatinine 1.03 mg/dL EGFR (MDRD) >60 mL/min/1.73m2 EGFR (MDRD) >60 mL/min/1.73m2 BUN 7 mg/dL Calcium Lvl 9.1 mg/dL Protein Total 6.8 g/dL Albumin Lvl 4.2 g/dL AST 61 unit/L HI ALT 73 unit/L HI Bili Total 0.4 mg/dL 04/06/2016 10:50 CDT UA Color Yellow UA Clarity Clear UA Spec Grav 1.010 UA pH 7.5 UA Protein Negative mg/dL UA Glucose Negative mg/dL UA Ketones Negative mg/dL UA Bili Negative UA Urobilinogen 0.2 mg/dL UA Blood Negative UA Nitrite Negative UA Leuk Est Negative UR WBC Occ-3 /HPF UR RBC Occ-2 /HPF UR Hyaline Cast Occasional /LPF UR Squamous Epi Cells Occ-3 /HPF UR Crystals Present 04/06/2016 10:36 CDT Hgb 14.3 g/dL Hct 39.9 % WBC 4.2 x10(9)/L RBC 4.51 x10(12)/L MCV 88.5 fL RDW 11.9 % Platelet 159 x10(9)/L Neutro Absolute 2.26 10(9)/L Lymph Absolute 1.29 x10(9)/L [place] Absolute 0.56 x10(9)/L Eos Absolute 0.12 x10(9)/L Baso Absolute 0.01 x10(9)/L Sodium Lvl 133.3 mM/L LOW Potassium Lvl 3.8 mmol/L Chloride 97 mmol/L LOW CO2 26.8 mmol/L AGAP 10 mmol/L Alkaline Phosphatase 64 U/L Glucose Lvl 98 mg/dL Creatinine 0.87 mg/dL EGFR (MDRD) >60 mL/min/1.73m2 EGFR (MDRD) >60 mL/min/1.73m2 BUN 8 mg/dL Calcium Lvl 9.4 mg/dL Protein Total 6.7 g/dL Albumin Lvl 4.2 g/dL AST 47 unit/L HI ALT 67 unit/L HI Bili Total 0.3 mg/dL Lipase Lvl 22.7 U/L . No qualifying data available. No qualifying data available. No qualifying data available. No qualifying data available. COMPUTERIZED TOMOGRAPHY CT Abdomen/Pelvis w/ contrast 04/07/16 12:41:07 07-Apr-2016 12:20:00 Exam: CT ABDOMEN w & PELVIS w Indications: diverticulitis vs other etiology 07-Apr-2016 12:41 CA EXAM: CT scan of the Abdomen and Pelvis with IV contrast COMPARISON: CT 04/04/2016 IMPRESSION: No change, with no acute findings or etiology for acute pain. FINDINGS: There is extensive colonic diverticulosis, but no convincing evidence of active diverticulitis. Bowel is all normal caliber, with no inflammation evident. Normal appendix. Large hiatal hernia. No ascites. Fatty liver. Hepatic cyst in the left lobe with no suspicious lesions. Cholelithiasis, with no CT evidence of acute cholecystitis. Fatty atrophy of the pancreas. Negative adrenal glands. There are couple of tiny renal cysts. Hysterectomy. Small cystic foci in both ovaries. Celiac, superior mesenteric, and inferior mesenteric arteries are patent. The mesenteric and portal venous systems are widely patent, as are the hepatic veins. Calcified pulmonary granuloma in the left lower lobe with calcified mediastinal node. Degenerative changes in the spine. Agnieszka Henry MD [phone] 07-Apr-2016 12:41 Signed By: AMAYA HENRY MD Reexamination/ Reevaluation Vital signs results included from flowsheet : Vital Signs 04/07/2016 14:18 CDT Temperature Core 36.0 DegC LOW Apical Heart Rate 75 /min Respiratory Rate 13 /min LOW SpO2 98 % Systolic Blood Pressure 117 mmHg Diastolic Blood Pressure 56 mmHg Mean Arterial Pressure 76 mmHg BP Location Left [facility] 04/07/2016 13:34 CDT Temperature Core 35.8 DegC LOW Peripheral Pulse Rate 65 /min Respiratory Rate 18 /min SpO2 99 % Systolic Blood Pressure 127 mmHg Diastolic Blood Pressure 64 mmHg BP Location Left [facility] 04/07/2016 12:19 CDT Temperature Core 35.8 DegC LOW Apical Heart Rate 66 /min Respiratory Rate 17 /min SpO2 99 % Systolic Blood Pressure 120 mmHg Diastolic Blood Pressure 45 mmHg <LLOW BP Location [facility] 04/07/2016 11:28 CDT Temperature Core 35.4 DegC LOW Apical Heart Rate 58 /min LOW Respiratory Rate 15 /min SpO2 100 % Systolic Blood Pressure 119 mmHg Diastolic Blood Pressure 56 mmHg Mean Arterial Pressure 77 mmHg BP Location Left [facility] 04/07/2016 11:16 CDT Temperature Core 35.6 DegC LOW 04/07/2016 11:15 CDT Apical Heart Rate 61 /min Respiratory Rate 15 /min SpO2 97 % Systolic Blood Pressure 113 mmHg Diastolic Blood Pressure 59 mmHg BP Location [facility] 04/07/2016 11:05 CDT Apical Heart Rate 60 /min Respiratory Rate 17 /min SpO2 94 % Systolic Blood Pressure 112 mmHg Diastolic Blood Pressure 67 mmHg BP Location [facility] 04/07/2016 10:54 CDT Peripheral Pulse Rate 60 /min SpO2 96 % Systolic Blood Pressure 115 mmHg Diastolic Blood Pressure 54 mmHg BP Location Left upper Course: improving, Sitting up. Eating clears. Looks brighter. . Impression and Plan Diagnosis Dehydration (Discharge, Emergency medicine, Medical) Syncope NOS (Discharge, Emergency medicine, Medical) Dizziness (Discharge, Emergency medicine, Medical) Plan Condition: Improved, Stable. Disposition: Medically cleared, Discharged: to home. Patient was given the following educational materials: Dehydration, DIZZINESS, Unk Cause, Causes of Syncope, Causes of Syncope, DIZZINESS, Unk Cause, Dehydration. Follow up with: ; Follow up with primary care provider Within 2 - 4 days For recheck.. Counseled: Patient, Family, Regarding diagnosis, Regarding diagnostic results, Regarding treatment plan, Patient indicated understanding of instructions. Notes: Stop the antibiotics. Likely viral gastroenteritis with resolution of v/d. However, abx for suspected diverticulitis likely having med affect for pt. Poor caloric intake over weekend during hot and humid conditions also likely a factor. Stressed importance of calorie rich clears as well as blands as tolerated. Has ODT zofran at home she can use prn. . Electronically Signed By: JESUS ALBERTO ALFONSO On: 04/07/2016 02:30 PM Modified by and Electronically Signed by: JESUS ALBERTO ALFONSO On: 04/07/2016 10:56 AM Co-Signed By: AZAR FIGUEROA MD On: 04/08/2016 07:12 AM Source: [facility] Document Id: [id number]} documented in this encounter Miscellaneous Notes Miscellaneous - Conversion, Historical Provider Ser - 04/07/2016 2:34 PM CDT Coding Summary-Paper Based CODING DATE: 04/15/2016 FINAL [place] [facility] STATUS: * Discharged to Home or Self Care PAYOR: Medicare ADMIT DX: R11.0 Nausea REASON FOR VISIT DX: R11.0 Nausea FINAL DX: PRINCIPAL: E86.0 Dehydration SECONDARY: R55 Syncope and collapse R10.32 Left lower quadrant pain Z88.8 Allergy status to other drugs, medicaments and biological substances status PROCEDURES DOCTOR NAME DATE NOTE: The code number assigned matches the documented diagnosis and / or procedure in the patient's chart. However, the narrative phrase printed from the coding software may appear abbreviated, or result in slightly different terminology. Coded By: JANE DAVIS Date Saved: 04/15/2016 12:26 pm Source: [facility] Document Id: [id number] Miscellaneous - Jakob Maradiaga R.N. - 04/07/2016 2:23 PM CDT Valuables/Belongings Valuables/Belongings Entered On: 04/07/2016 14:24 CDT Performed On: 04/07/2016 14:23 CDT by JAKOB MARADIAGA RN Valuables/Belongings Belongings Sent Home With : sent home with patient Home Medication Disposition : None brought in with patient JAKOB MARADIAGA RN - 04/07/2016 14:23 CDT [facility] Document Id: [id number] CDT!4 Miscellaneous - Jakob Maradiaga R.N. - 04/07/2016 2:18 PM CDT Discharge Vital Signs Form Discharge Vital Signs Form Entered On: 04/07/2016 14:19 CDT Performed On: 04/07/2016 14:18 CDT by JAKOB MARADIAGA RN Vital Signs Temperature Core : 36.0 DegC(Converted to: 96.8 DegF) (LOW) Apical Heart Rate : 75 /min Respiratory Rate : 13 /min (LOW) Systolic Blood Pressure : 117 mmHg Diastolic Blood Pressure : 56 mmHg NIBP Mean : 76 mmHg BP Location : Left upper extremity SpO2 : 98 % Oxygen Therapy : Room air Height : 163 cm(Converted to: 5 ft 4 inch(es)) JAKOB MARADIAGA RN - 04/07/2016 14:18 CDT Source: [facility] Document Id: [id number] CDT!12 Cherylcellaneous - Jakob Maradiaga R.N. - 04/07/2016 10:47 AM CDT Facility Charge Ticket 2.0 11.0 DX Facility Charge Ticket 2.0 11.0 DX Entered On: 04/07/2016 14:24 CDT Performed On: 04/07/2016 10:47 CDT by JAKOB MARADIAGA RN Facility Charge Ticket 2.0 11.0 DX ED Other Charges : Standard ED Encounter TVL Level Translated RTF : Syncope/Near syncope TVL:4 TVL Level for Facility Charge Ticket : Level 4 Arrival Mode Calc : 4,097 Mode of Arrival ED : Private vehicle [facility] Mode of Arrival Interpreted : Standard [facility] Process Management : None Order Management RTF : Laboratory Lactic Acid,04/07/16 10:54,JESUS ALBERTO ALFONSO Completed Comprehensive Metabolic Panel,04/07/16 11:08,JESUS ALBERTO ALFONSO Completed CBC (includes Auto Differential),04/07/16 11:09,JESUS ALBERTO ALFONSO Completed Automated Diff-5 Part,04/07/16 11:11,JESUS ALBERTO ALFONSO Completed TSH,04/07/16 12:46,JESUS ALBERTO ALFONSO Completed Troponin T,04/07/16 12:46,JESUS ALBERTO ALFONSO Completed CT / MRI / Ultrasound CT Abdomen/Pelvis w/ contrast,04/07/16 11:46,JESUS ALBERTO ALFONSO Completed [facility] Order Management : CT/MRI/Ultrasound, Lab tests 30 Minutes Critical Care : No Nursing Notes RTF : Triage Forms ED Triage Assessment,04/07/16 11:16,JAKOB MARADIAGA RN Nursing Notes ED Primary Assessment,04/07/16 11:28,JAKOB MARADIAGA RN ED Nurse Reassess,04/07/16 13:35,JAKOB MARADIAGA RN ED Pain Assessment,04/07/16 14:23,JAKOB MARADIAGA RN [facility] Nursing Assessment : Triage and 6+ nursing assessments [facility] Disposition : Discharge Disposition RTF : discharge [facility] Total Points with Diagnosis Control : 12 [facility] Visit Level : 16575 Level 4 Treatments Prior to Arrival : IV insertion JAKOB MARADIAGA RN - 04/07/2016 14:24 CDT Chief Complaint 11.0 Reason For Visit Category : General medicine TVL Calculation : 12 ED Chief Complaint General Medicine 11.0 : Dizziness TVL for Facility Charge Ticket Dx : Level 4 JAKOB MARADIAGA RN - 04/07/2016 14:24 CDT Source: [facility] POWERCHART Document Id: [id number] CDT!24 documented in this encounter Plan of Treatment Not on filedocumented as of this encounter Procedures Procedure Name Priority Date/Time Associated Comments Diagnosis ECG Routine 04/07/2016 11:09 Results for this AM CDT procedure are i n the results section. TROPONIN T, 5TH GEN, P Routine 04/07/2016 11:05 R esults for this AM CDT procedure are i n the results section. THYROID-STIMULATING Routine 04/07/2016 11:05 Resu lts for this HORMONE-SENSITIVE AM CDT procedure are in (S-TSH) the results section. LACTATE, B/P Routine 04/07/2016 11:05 Results for this AM CDT procedure are i n the results section. AUTOMATED Routine 04/07/2016 10:46 Results for this DIFFERENTIAL, B AM CDT procedure ar e in the results section. CBC WITH DIFFERENTIAL, Routine 04/07/2016 10:46 R esults for this B AM CDT procedure are i n the results section. COMPREHENSIVE Routine 04/07/2016 10:46 Results fo r this METABOLIC PANEL, S/P AM CDT procedu re are in the results section. documented in this encounter Results ECG 12 Lead (04/07/2016 11:09 AM CDT) Specimen (Source) Anatomical Collection Method Collection Time Re ceived Time Location / / Volume Laterality 04/07/2016 11:09 AM CDT [facility] - 04/07/2016 11:09 AM CDT Test Reason : EKG Blood Pressure : / mmHG Vent. Rate : 059 BPM ? Atrial Rate : 059 BPM ?? P-R Int : 158 ms ?QRS D ur : 090 ms ?QT Int : 456 ms ? P-R-T Axe s : 062 032 046 degrees ?? QTc Int : 451 ms Sinus bradycardia Nonspecific ST abnormality When compared with ECG of 06-NOV-2015 21 :38, No significant change was found Referred By: JESUS ALBERTO ALFONSO ? Confirmed By:COLETTE RUVALCABA ?? Procedure Note Provider, Kenton Anglin - 01/29/2017F ormatting of this note might be different from the original. Test Reason : EKG Blood Pressure : / mmHG Vent. Rate : 059 BPM Atrial Rate : 059 B PM P-R Int : 158 ms QRS Dur : 090 ms QT Int : 456 ms P-R-T Axes : 062 032 04 6 degrees QTc Int : 451 ms Sinus bradycardia Nonspecific ST abnormality When compared with ECG of 06-NOV-2015 21 :38, No significant change was found Referred By: JESUS ALBERTO ALFONSO Confirmed By:CORDELIA RUVALCABA MD Colette Ruvalcaba M.D., M.B.A. ECG ORDERABLES Performing Organization Address City/State/ZIP Code Phon e Number [facility] [address] [place] [id number] Troponin T (04/07/2016 11:05 AM CDT) P athologist Signature Troponin T, S <0.01 <=0.01 NGML POWERCHART Comment: 0.03 - 0.1 ng/mL Intermediate Z one Specimen (Source) Anatomical Collection Method Collection Time Re ceived Time Location / / Volume Laterality Blood 04/07/2016 11:05 AM CDT Jesus [facility]to Fleming-CDann LAB BLOOD ADD-ON Performing Organization Address City/[facility]/ZIP Code Phon e Number POWERCHART Thyroid-Stimulating Hormone-Sensitive (s-TSH) (04/07/2016 11:05 AM CDT) P athologist Signature TSH 4.01 0.27 - 4.20 POWERCHART (Thyrotropin) MIUL Specimen (Source) Anatomical Collection Method Collection Time Re ceived Time Location / / Volume Laterality Blood 04/07/2016 11:05 AM CDT Jesus Alberto Fleming-C. LAB BLOOD ADD-ON Performing Organization Address City/State/ZIP Code Phon e Number POWERCHART Lactate (04/07/2016 11:05 AM CDT) P athologist Signature Lactate, P 1.3 0.6 - 3.2 POWERCHART MMOLL Specimen (Source) Anatomical Collection Method Collection Time Re ceived Time Location / / Volume Laterality Blood 04/07/2016 11:05 AM CDT Jesus Alberto Fleming-C. LAB BLOOD NON ADD-ON Performing Organization Address City/[facility] Code Phon e Number POWERCHART Automated Differential (04/07/2016 10:46 AM CDT) P athologist Signature Absolute 2.92 1.70 - POWERCHART Neutrophils 7.00 109L Lymphocytes 1.56 0.90 - POWERCHART 2.90 X109L Monocytes 0.62 0.30 - POWERCHART 0.90 X109L Eosinophils 0.15 0.05 - POWERCHART 0.50 X109L Absolute 0.02 0.00 - POWERCHART Basophil 0.30 X109L Specimen Anatomical Collection Method Collection Time Receive d Time (Source) Location / / Volume Laterality Blood 04/07/2016 10:46 04/07/2016 AM CDT 10:46 AM CDT Jesus Alberto Samson P.A.-C. LAB BLOOD ADD-ON Performing Organization Address [facility] Phon e Number POWERCHART CBC with Differential (04/07/2016 10:46 AM CDT) P athologist Signature Leukocytes 5.3 3.4 - 10.5 POWERCHART X109L Erythrocytes 4.75 3.90 - 5.03 POWERCHART [id number] Hemoglobin 15.0 12.0 - 15.5 POWERCHART GDL Hematocrit 41.6 34.9 - 44.5 POWERCHART MCV 87.6 82.0 - 98.0 POWERCHART FL HX RDW 12.1 11.9 - 15.5 POWERCHART Platelet Count 198 150 - 450 POWERCHART X109L Specimen (Source) Anatomical Collection Method Collection Time Re ceived Time Location / / Volume Laterality Blood 04/07/2016 10:46 AM CDT Jesus Alberto Samson P.A.-C. LAB BLOOD ADD-ON Performing Organization Address City/[facility] Phon e Number POWERCHART (ABNORMAL) CMP (Comprehensive Metabolic Panel) (04/07/2016 10:46 AM CDT) Patholo gist Method Time Signature Alanine 73 (H) 7 - 45 POWERCHART Amniotransferase, LD UNITL Albumin, S 4.2 3.5 - 5.0 POWERCHART GDL Alkaline 55 55 - 142 POWERCHART Phosphatase, S UL Aspartate 61 (H) 8 - 43 POWERCHART Aminotransferase UNITL (AST), S Sodium, S 127.3 (L) 135.0 - POWERCHART 145.0 MML Potassium, S 4.6 3.6 - 4.8 POWERCHART MMOLL Chloride, S 94 (L) 98 - 107 POWERCHART MMOLL CO2 Total 22.1 (L) 23.0 - POWERCHART 29.0 MMOLL BUN (Blood Urea 7 7 - 18 POWERCHART Nitrogen), S MGDL Creatinine 1.03 0.60 - POWERCHART 1.30 MGDL Calcium, Total, S 9.1 8.8 - POWERCHART 10.2 MGDL Anion Gap 11 10 - 20 POWERCHART MMOLL HXeGFR (MDRD) >60 >=60 POWERCHART [id number] 2 eGFR Black/ >60 >=60 POWERCHART [place] [id number] 2 Bilirubin, Total, S 0.4 0.1 - 1.0 POWERCHART MGDL Total Protein, S 6.8 6.3 - 7.9 POWERCHART GDL Glucose 103 70 - 139 POWERCHART MGDL Specimen (Source) Anatomical Collection Method Collection Time Re ceived Time Location / / Volume Laterality Blood 04/07/2016 10:46 AM CDT Jesus Alberto Samson P.A.-C. LAB BLOOD ADD-ON Performing Organization Address City/State/ZIP Code Phon e Number POWERCHART documented in this encounter Visit Diagnoses Not on filedocumented in this encounter
--- OUTSIDE RECORDS SUMMARY | 2022-05-06 13:10 | XMS_ITS | Encounter Summary ---
:1935 Author Organization [facility] Address [address] [place] [address] Care Team Providers Name Role Phone Unavailable Primary Care Provider Unavailable Encounter Details Date Type Department Care Team Description 09/24/2016 Hospital Encounter HX F [facility] Wisam Sebastian, C.N.P. [address] [place] [address] (Wo rk) Social History Tobacco [...] as needed. documented as of this encounter Miscellaneous Notes Miscellaneous - Conversion, Historical Provider Ser - 09/24/2016 11:59 PM VISITOR INFORMATION ASSISTANT Coding Summary-Paper Based CODING DATE: 10/03/2016 FINAL [place] [facility] STATUS: * Discharged to Home or Self Care PAYOR: Medicare ADMIT DX: REASON FOR VISIT DX: FINAL DX: PRINCIPAL: K80.20 Calculus of gallbladder without cholecystitis without obstruction SECONDARY: PROCEDURES DOCTOR NAME DATE NOTE: The code number assigned matches the documented diagnosis and / or procedure in the patient's chart. However, the narrative phrase printed from the coding software may appear abbreviated, or result in slightly different terminology. Coded By: MONE RESENDIZ Date Saved: 10/03/2016 02:40 pm [facility] Document Id: [id number] documented in this encounter Plan of Treatment Not on filedocumented as of this encounter Visit Diagnoses Not on filedocumented in this encounter
--- OUTSIDE RECORDS SUMMARY | 2022-05-06 13:10 | XMS_ITS | Encounter Summary ---
:1935 Author Organization [facility] Address [address] [place] [id number] Care Team Providers Name Role Phone Unavailable Primary Care Provider Unavailable Encounter Details Date Type Department Care Team Description 04/10/[address] [facility] ED Maritza Marie M.D. [address] [place] [address] [phone] (Wo rk) Social History Tobacco Use Types Packs/Day Years Used Date Smoking Tobacco: Never Sex Assigned at Date Recorded Not on file documented as of this encounter Last Filed Vital Signs Vital Sign Reading Time Taken Comments Blood Pressure 166/73 04/10/2017 11:18 AM CDT Pulse 63 04/10/2017 11:18 AM CDT Temperature - - Respiratory Rate 18 04/10/2017 10:32 AM CDT Oxygen Saturation - - Inhaled Oxygen Concentration - - Weight - - Height - - Body Mass Index - - documented in this encounter Discharge Summaries Faviola Wilkinson, R.N. - 04/10/2017 11:55 AM CDT ED Discharge Instructions [address] [address] Name: KATHRYN LEON Date of : 1935 12:00 AM Visit Date: 04/10/2017 10:33 AM [facility] Number: [id number] Address: [address] [place] [phone] Primary Care Provider: PCP, ELSEWHERE IMPORTANT: [facility] in [place] would like to thank you for allowing us to assist you with your healthcare needs. The following includes patient education materials and informationregarding your injury/illness. Diagnosis: Anaphylaxis Initial; Swelling Throat Follow-Up Instructions: With: Address: When: ELSEWHERE PCP Within As Needed Your Upcoming Appointments: Date Time Location Provider No Appointments found Patient Education Materials: Anaphylaxis Anaphylaxis is the term for a severe allergic reaction. It may begin within minutes, up to a couple hours after exposure to the substance you are allergic to (allergen). Symptoms include nausea, vomiting, diarrhea or stomach cramps, itchy rash (hives), swelling of the eyes, lips, face or tongue, wheezing, difficulty breathing or swallowing, throat tightness, chest pain, dizziness or fainting. This kind of reaction can be life-threatening. Fortunately, your case has responded to treatment. Any remaining symptoms should resolve within 6-24 hours. If you are exposed to the same substance again, you may have the same or more severe reaction. Treatment for anaphylaxis is epinephrine (adrenalin). This is available by prescription as Epi-Pen for self-injection. If the cause of your reaction is known, you should avoid exposure in the future. If the cause is not known, follow up with your doctor for special testing to determine what you are allergicto. Home Care: ?? Rest at home for the next 24 hours. ?? Avoid tobacco and alcohol consumption. These may worsen your symptoms. ?? If you know what caused your reaction today, avoid that in the future since the next reaction maybe worse. Let your family members, friends and personal physician know about your allergic reaction. ?? If your allergy was to food, learn how to read food labels so you can check for the offending substance. If a product does not have a label, it is best to avoid it. ?? Consider carrying an identification card or getting a Medic-Alert? bracelet to inform medical personnel of your condition in the event you are not able to do so yourself. ?? If an Epi-Pen was prescribed, carry it at all times. It can be life-saving. Learn how to use the device. If you begin to feel the symptoms of another reaction in the future, use the Epi-Pen to inject yourself, and then call 911. Dont wait until symptoms become severe. ?? Oral Benadryl (diphenhydramine) is an antihistamine available at drug and grocery stores. Unless a prescription antihistamine was given, Benadryl may be used to reduce itching if large areas of the skin are involved. Use lower doses during the daytime and higher doses at bedtime since the drug may make you sleepy. [NOTE: Do not use Benadryl if you have glaucoma or if you are a man with trouble urinating due to an enlarged prostate.] Claritin (loratidine) is an antihistamine that causes less drowsiness and is a good alternative for daytime use. ?? If you were prescribed any medicines to prevent symptoms from returning, be sure to take them exactly as directed. Follow Up with your doctor or as advised if you are not improving over the next 1-2 days. If you do not know what caused this reaction, skin and blood tests, or an elimination diet may be helpful. You may locatean laboratory specialist in your area by contacting: ?? [employer] www.aaaai.org [phone] ?? [employer] www.acaai.org Get Prompt Medical Attention if any of the following occur: ?? Worsening of your symptoms ?? Trouble breathing or swallowing ?? Swelling in the mouth or face ?? Chest pain ?? Dizziness, weakness or fainting ?? [id number] [place] [address]. All rights reserved. This information is not [...] if you dont have one. Go to [email or web address] and click on Create Your Account. Then, follow the directions to complete the online form. Youll be asked for your [facility] number which you can find at the top of this document. ED Tests and Procedures: Order Status Discharge Prescriptions & Home Medications: Medication/Strength Dose Route Frequency Indications/Special Instructions/Comments/Notes EPINEPHrine (EpiPen 2-Kristin 0.3 mg injectable kit) 0.3 mg Intramuscular once may substitue for alternative (generic) self-injectable epinephrine kit predniSONE (predniSONE 20 mg oral tablet) 40 mg Oral once a day for 4 Days to start on 04/11/17 with food or milk biotin (biotin) Oral once a day omeprazole (omeprazole 40 mg oral delayed release capsule) 40 mg Oral once a day gabapentin (gabapentin 300 mg oral capsule) 900 mg Oral once a day fluticasone nasal (Flonase 50 mcg/inh nasal spray) 2 spray(s) Nostrils(Both) once a day fexofenadine-pseudoephedrine (Rochelle-D 12 Hour 60 mg-120 mg oral tablet, extended release) 1 tab(s)Oral two times a day Lingorami [phone] estradiol topical (Vagifem 10 mcg vaginal tablet) 10 mcg Vaginal 2 times a week Member No [phone] meclizine (meclizine 12.5 mg oral tablet) 1-2 [...] arrange a ride home with a responsible alliance party. CAROLYN Strange MARY CATHERINE , or responsible alliance party have received this information and my questions have been answered. I have discussed any challenges I see with this plan with the nurse or physician. Patient Signature or Responsible Republican/Relationship Date Time Provider Signature Date Time IMPORTANT: [...] arrange a ride home with a responsible alliance party. CAROLYN Strange MARY CATHERINE or responsible alliance party have received this information and my questions have been answered. I have discussed any challenges I see with this plan with the nurse or physician. Patient Signature or Responsible Republican/Relationship Date Time Provider Signature Date Time Source: Game9z Document Id: [id number] Faviola Wilkinson R.N. - 04/10/2017 11:55 AM CDT ED Depart Summary [facility] Emergency Department Clinical Discharge Summary PERSON INFORMATION Name KATHRYN LEON Age 82 Years 1935 12:00 AM Sex Female Language Uzbek PCP PCP, ELSEWHERE Marital Status N [id number] Visit Id Visit Reason Allergic reaction - major; allergic reaction , swollen throat Specialty Enc Type Emergency Med Service Emergency Medicine Referred by Track Group [facility] ED Discharge 04/10/2017 11:55 AM Tracking Id [id number] Checkout 04/10/2017 11:55 AM Checkin 04/10/2017 10:33 AM Acuity 2 -Emergent Dispo Type * Discharged to Home or Self Care Arrival 04/10/2017 10:33 AM Reg Status Complete LOS 000 01:22 Address: [address] [place] [phone] Comment: PROVIDER INFORMATION Provider Role Provider Contact Time ABDI MARIE MD ED Provider 04/10/17 10:35 FAVIOLA WILKINSON LOAN TELLER Nurse 04/10/17 10:52 DIAGNOSIS Anaphylaxis Initial; Swelling Throat Comment: PATIENT EDUCATION INFORMATION Instructions: ANAPHYLAXIS, General Follow up: With: Address: When: ELSEWHERE PCP Within As Needed Source: Game9z Document Id: [id number] Faviola Wilkinson R.N. - 04/10/2017 11:55 AM CDT ED Disposition Summary ED Disposition Summary Entered On: 04/10/2017 11:55 CDT Performed On: 04/10/2017 11:55 CDT by FAVIOLA WILKINSON LOAN TELLER Disposition Summary Present in Room During Exam/Procedure : Spouse Mode of Discharge : Ambulatory Transportation : Private vehicle Printed Discharge Instructions Given to Patient : Yes Patient Status at Discharge from ED : Improved 30 Minutes Critical Care : No FAVIOLA WILKINSON RN - 04/10/2017 11:55 CDT Source: Game9z Document Id: [id number]!8 documented in this encounter Medications at Time [...] by mouth 2 0 10/18/2015 05/14/2019 hedrine (ROCHELLE-D 12 (two) times a day. HOUR) 60-120 [...] documented as of this encounter ED Notes Faviola Wilkinson R.N. - 04/10/2017 11:55 AM CDT ED Pain Assessment ED Pain Assessment Entered On: 04/10/2017 11:55 CDT Performed On: 04/10/2017 11:55 CDT by FAVIOLA WILKINSON RN Pain Assessment Pain Symptoms : No FAVIOLA WILKINSON RN - 04/10/2017 11:55 CDT Source: Game9z Document Id: [id number]!3 Abdi Marie M.D. - 04/10/2017 11:38 AM CDT Allergic reaction - major Patient: KATHRYN LEON Age: 82 years Sex: Female : 1935 Author: ABDI MARIE MD Attachments: None Associated Diagnosis: Anaphylaxis Initial; Swelling Throat Basic Information Additional information: Chief Complaint from Nursing Triage Note : Chief Complaint Description 04/10/2017 10:55 CDT Chief Complaint Description see triage 04/10/2017 10:32 CDT Chief Complaint Description Pt comes in with an allergic reaction to nuts. On arrival pt sats 98 %. Epi pen gave immediately . History of Present Illness Ms. Leon is a very pleasant 82-year-old female who presents to the emergency department for concern of an allergic reaction. She has a history of severe allergic reactions to nuts. She was eating a breakfast sandwich, with a gluten free bun and shortly after taking a bite of this, noted that she was feeling this sensation of her throat swelling up. She is concerned that she is having a allergic reaction to this seeds that were in the bun itself. She has had no difficulty breathing or shortness ofbreath. Denies any rash, itchiness, or hives. She has had no nausea or vomiting. No lightheadedness.This is consistent however with previous allergic reactions that she has had. She does have a EpiPenat home, but did not have it with her. She immediately came to the emergency department to be evaluated. She denies any exacerbating or alleviating factors otherwise, and denies any other concerns. Review of Systems Pertinent positive and negatives per HPI. All other systems were reviewed and are negative. Health Status Allergies: Allergic Reactions (Selected) Severity Not Documented Glutens- No reactions were documented. Nuts- No reactions were documented. Nonallergic Reactions (Selected) Severity Not Documented Miconazole topical- No reactions were documented.. 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 Comments: 12/31/2010 CDT 12:11 CDT - PATTI ALMENDAREZ LPN date unknown Glaucoma NOS (365.9): Resolved.. Surgical history: Upper gastrointestinal endoscopy ([id number]) on 11/30/2013 at 78 Years. MAMMOGRAM ([id number]) on 08/25/2013 at 78 Years. Comments: 10/31/2013 11:24 - SUJATHA MAR LPN [place] Normal may resume in rader [place] Mammogram ([id number]) on 07/15/2012 at 77 Years. Diagnostic colonoscopy ([id number]) on 03/25/2011 at 76 Years. Comments: 03/25/2011 08:49 - SAGRARIO NOLAND MD Sigmoid diverticulosis--not inflamed. Dual-energy X-ray absorptiometry (DXA), bone density study, 1 or more sites; axial skeleton (eg, hips, pelvis, spine).. ([id number]) in the week of 08/14/2010 at 75 Years. Comments: 10/25/2010 09:40 - CARMELO RHODES Hx: [id number] - BONE DEN HIPS/PEL/SP 08/01/2013 19:17 - Contributor source changed to PowerChart. Mammogram ([id number]) on 07/22/2010 at 75 Years. Mammogram ([id number]) on 06/28/2010 at 75 Years. Laminectomy approach to lumbar spine ([id number]) in 2008 at 74 Years. Colonoscopy ([id number]) on 02/01/2009 at 73 Years. Extracapsular cataract removal with insertion of intraocular lens prosthesis (1 stage procedure), manual or mechanical technique (eg, irrigation and aspiration or phacoemulsification) ([id number]) on 02/26/2007 at 72 Years. Comments: 10/25/2010 20:26 - PATTI ALMENDAREZ UTILITY MECHANIC SUPERVISOR left HC COLONOSCOPY W SNARE REMOVAL TUMOR/POLYP/LESION - 12/31/06 on 12/31/2006 at 71 Years. HC ANTER COLPORRHAPHY,BLAD/VAGINA - 03/22/01 - ANTERIOR POSTERIOR REPAIR on 03/22/2001 at 66 Years. HC FLEX SIGMOIDOSCOPY W/WO JAMES SPEC BY BRUSH/WASH - on 06/14/1999 at 64 Years. Repair of cystocele ([id number]) in 1994 at 60 Years. Reduction mammaplasty () on 02/26/1982 at 47 Years. Hysterectomy ([id number]) on 11/04/1966 at 31 Years. Comments: 03/25/2011 08:51 - SAGRARIO NOLAND MD Vaginal Hemorrhoidectomy, internal and external, single column/group; ([id number]) on 02/26/1959 at 24 Years. C GLAUCOMA [...] Brother Celiac disease Brother . Physical Examination Vital Signs: Vital Signs 04/10/2017 11:18 CDT Peripheral Pulse Rate 63 /min SpO2 98 % Systolic Blood Pressure 166 mmHg >HHI Diastolic Blood Pressure 73 mmHg 04/10/2017 11:05 CDT Peripheral Pulse Rate 58 /min LOW SpO2 97 % Systolic Blood Pressure 194 mmHg >HHI Diastolic Blood Pressure 86 mmHg 04/10/2017 10:32 CDT Temperature Core 36.4 DegC LOW Peripheral Pulse Rate 64 /min Respiratory Rate 18 /min SpO2 98 % Systolic Blood Pressure 218 mmHg >HHI Diastolic Blood Pressure 93 mmHg >HHI Mean Arterial Pressure 135 mmHg . CONSTITUTIONAL: --- Vital signs reviewed. EYES: --- Conjunctivae and lids normal. --- Pupils equal and round, normal in size. ENT AND MOUTH: --- Ears, nose, mouth normal in appearance. --- Moist mucous membranes. --- No obvious swelling in the posterior oropharynx or tongue swelling. NECK: --- Symmetric, supple. --- Midline trachea. CARDIOVASCULAR: --- 2+ radial pulse. --- Extremities are warm and well perfused. RESPIRATORY: --- No increased respiratory effort. No wheezing. --- Speaking in full sentences. ABDOMEN: --- Non-distended. Non-tender. MUSCULOSKELETAL: --- Head is atraumatic. --- No obvious injuries, wounds, deformities, of the chest, abdomen, upper and lower extremities. SKIN: --- Skin is warm and dry. Without areas of warmth or erythema. No urticaria. NEUROLOGIC: --- Speech normal. Alert and oriented. --- No focal motor or sensory deficits. Medical Decision Making Ms. Leon is a very pleasant 82-year-old female who presents to the emergency department for concern of an allergic reaction. She is hypertensive on arrival here. Her airway is patent. Given concern for likely exposure to a known allergen followed quickly by the feeling of throat swelling, this meets criteria for anaphylaxis. She is given an EpiPen immediately upon arrival given likely exposure to an allergen followed by the feeling of throat swelling. Following this, an IV is placed and she is given 125 mg of methylprednisolone, diphenhydramine 25 mg, famotidine 20 mg. We have observed her over the course of an hour here, her symptoms have significantly improved. She no longer feels any significant sensation of throat swelling. She feels comfortable going home. I provided her with a prescription for prednisone x4 days, 40 mg daily. She will start this tomorrow. In addition, a new prescription for an EpiPen is provided she believes hers is likely . She is instructed to return here if she develops any worsening symptoms, recurrent feeling of throat swelling, or any otherconcerns. She is comfortable with this plan and all questions have been answered. Critical care time: 30 minutes. Impression and Plan Diagnosis Anaphylaxis Initial (Discharge, Emergency medicine, Medical) Swelling Throat (Discharge, Emergency medicine, Medical) Plan Condition: Improved, Stable. Disposition: Medically cleared, Discharged: to home. Prescriptions: Prescription [facility]: predniSONE 20 mg oral tablet (Prescribe): 40 mg, 2 tab(s), PO, Daily, for 4 day(s), to start on 04/11/17 with food or milk, 8 tab(s), 0 Refill(s), Prescription [facility]: EpiPen 2-Kristin 0.3 mg injectable kit (Prescribe): 0.3 mg, IM, Once, may substitue for alternative (generic) self-injectable epinephrine kit, 1 box(es), 0 Refill(s). Patient was given the following educational materials: ANAPHYLAXIS, General, ANAPHYLAXIS, General. Follow up with: ELSEWHERE PCP Within As Needed. Counseled: Patient, Family. Orders: Launch Orders Patient Care: Discharge ED Patient (Order Processing): 04/10/2017 11:46 CDT. Electronically Signed By: ABDI MARIE MD On: 04/10/2017 12:11 PM Modified by and Electronically Signed by: ABDI MARIE MD On: 04/10/2017 11:47 AM Source: [facility] POWERCHART Document Id: {[id number]} Miguel Kendrick R.N. - 04/10/2017 10:55 AM CDT ED Primary Assessment Document Has Been Updated ED Primary Assessment Entered On: 04/10/2017 10:57 CDT Performed On: 04/10/2017 10:55 CDT by MIGUEL KENDRICK Reason For Visit (As Of: 04/10/2017 10:57:23 CDT) Problems(Active) Abnormal Liver Function Test (ICD-9-CM :790.6 ) Name of Problem: Abnormal Liver Function Test ; Onset Date: 10/05/2014 ; Recorder: ALBANIA VARMA APRN, YURI, EXHIBITIONS AND COLLECTIONS MANAGER; Confirmation: Confirmed ; Classification: Medical ; Code: 790.6 ; Contributor System: PowerChart ; Last Updated: 11/17/2014 12:51 BENCH TECHNICIAN ; LifeCycle Status: Active ; Responsible Provider: ALBANIA VARMA APRN, YURI, EXHIBITIONS AND COLLECTIONS MANAGER; Vocabulary: ICD-9-CM Allergic rhinitis, unspecified (ICD-9-CM :477.9 [...] System: PowerChart ; Last Updated: 10/25/2010 20:18 BENCH TECHNICIAN ; Life Cycle Date: 10/25/2010 ; Life Cycle Status: Active ; Responsible Provider: PATTI ALMENDAREZ LPN; Vocabulary: ICD-9-CM Atrophic vaginitis (ICD-9-CM :627.3 ) Name of Problem: Atrophic vaginitis ; Onset Date: 07/27/2012 ;Recorder: ALBANIA VARMA APRN, YURI, EXHIBITIONS AND COLLECTIONS MANAGER; Confirmation: Confirmed ; Classification: Medical ; Code: 627.3 ; Last Updated: 07/27/2012 11:32 BENCH TECHNICIAN ; Life Cycle Status: Active ; Responsible Provider: ALBANIA VARMA APRN, DNP, CNP; Vocabulary: ICD-9-CM Bursitis Hip/Trochanertic (ICD-9-CM :726.5 ) Name of Problem: Bursitis Hip/Trochanertic ; Onset Date: 10/20/2011 ; Recorder: ALBANIA VARMA APRN, DNP, CNP; Confirmation: Confirmed ; Classification: Medical ; Code: 726.5 ; Last Updated: 10/20/2011 9:54 BENCH TECHNICIAN ; Life Cycle Status: Active ; Responsible Provider: ALBANIA VARMA APRN, DNP, CNP; Vocabulary: ICD-9-CM Cataract NOS (ICD-9-CM :366.9 ) Name of Problem: Cataract NOS ; Onset Date: 1991 ; Recorder: PATTI ALMENDAREZ LPN; Confirmation: Confirmed ; Classification: Nursing ; Code: 366.9 ; Contributor System: [employer] ; Last Updated: 01/21/2011 10:04 CDT ; Life Cycle Date: 10/25/2010 ; Life Cycle Status: Active ; Responsible Provider: PATTI ALMENDAREZ LPN; Vocabulary: ICD-9-CM ; Comments: 12/31/2010 12:11 - PATTI ALMENDAREZ LPN date unknown Celiac Disease (ICD-9-CM :579.0 ) Name of Problem: Celiac Disease ; Onset Date: 02/26/2007 ; Recorder: PATTI ALMENDAREZ LPN; Confirmation: Confirmed ; Classification: Nursing ; Code: 579.0 ; ContributorSystem: [employer] ; Last Updated: 10/25/2010 20:20 BENCH TECHNICIAN ; Life Cycle Date: 10/25/2010 ; Life [...] Cord ; Recorder: ALBANIA VARMA APRN, DNP, IVANA; Confirmation: Confirmed ; Classification: Medical ; Code: J38.3 ; Contributor System: PowerChart ; Last Updated: 07/10/2015 10:30 CDT ; Life Cycle Status: Active ; Responsible Provider: ALBANIA VARMA APRN, DNP, IVANA; Vocabulary: ICD-10-CM Diverticulitis of large intestine (ICD-9-CM :562.11 ) Name of Problem: Diverticulitis of large intestine ; Onset Date: 10/28/2010 ; Recorder: ALBANIA VARMA APRN, YURI, IVANA; Confirmation: Confirmed ; Classification: Medical ; Code: 562.11 ; Last Updated: 10/28/2010 16:30 BENCH TECHNICIAN ; Life Cycle Status: Active; Responsible Provider: ALBANIA VARMA APRN, DNP, IVANA; Vocabulary: ICD-9-CM Eye disorder (ICD-9-CM :379.8 ) Name of Problem: Eye disorder ; Recorder: TAMMY ACEVES MD; Confirmation: Confirmed ; Classification: UPDATE NEEDED ; Code: 379.8 ; Contributor System: PowerChart ; Last Updated: 11/12/2015 4:13 BENCH TECHNICIAN ; Life Cycle Date: 01/05/2012 ; Life Cycle Status: Active ; Responsible Provider: TAMMY ACEVES MD; Vocabulary: ICD-9-CM ; Comments: 01/21/2012 9:37 - MATTHEW BORDEN LPN date unknown Fracture of rib (SNOMED CT :25565814 ) Name of Problem: Fracture of rib ; Onset Date: 05/12/2013 ; Recorder: SUJATHA MAR LPN; Confirmation: Confirmed ; Classification: Nursing ; Code: 97371930 ;Contributor System: PowerChart ; Last Updated: 06/07/2013 [...] System: PowerChart ; Last Updated: 11/12/2015 4:13 BENCH TECHNICIAN ; Life Cycle Date: 10/25/2010 ; Life Cycle Status: Active ; Responsible Provider: PATTI ALMENDAREZ LPN; Vocabulary: ICD-9-CM ; Comments: 12/31/2010 12:11 - PATTI ALMENDAREZ LPN date unknown Glaucoma (SNOMED CT :26977969 ) Name of Problem: Glaucoma ; Recorder: TAMMY ACEVES MD; Confirmation: Confirmed ; Classification: Medical ; Code: 38290358 ; Contributor System: PowerChart ; Last Updated: 01/05/2012 18:52 CDT ; Life Cycle Date: 01/05/2012 ; Life Cycle Status: Active ; ResponsibleProvider: TAMMY ACEVES MD; Vocabulary: SNOMED CT ; Comments: 01/21/2012 9:37 - MATTHEW BORDEN LPN date unknown Hernia, hiatal (ICD-9-CM :553.3 ) Name of Problem: Hernia, hiatal ; Onset Date: 10/31/2013 ; Recorder: ALBANIA VARMA APRN, DNP, CNP; Confirmation: Confirmed ; Classification: Medical ; Code: 553.3 ; Last Updated: 10/31/2013 11:53 BENCH TECHNICIAN ; Life Cycle Status: Active ; Responsible Provider: ALBANIA VARMA APRN, DNP, CNP; Vocabulary: ICD-9-CM Osteopenia (ICD-9-CM :733.90 ) Name of Problem: Osteopenia ; Onset Date: 02/26/1987 ; Recorder: PATTI ALMENDAREZ LPN; Confirmation: Confirmed ; Classification: Nursing ; Code: 733.90 ; Contributor System: PowerChart ; Last Updated: 10/25/2010 20:19 BENCH TECHNICIAN ; Life Cycle Date: 10/25/2010 ; Life Cycle Status: Active ; Responsible Provider: PATTI ALMENDAREZ LPN; Vocabulary: ICD-9-CM Diagnoses(Active) Allergic reaction - major Date: 04/10/2017 ; Diagnosis Type: Reason For Visit ; Confirmation: Complaint of ; Clinical Dx: Allergic reaction - major ; Classification: Medical ; Clinical Service: Emergency medicine ; Code: PNED ; Probability: 0 ; Diagnosis Code: [id number] Triage Chief Complaint Description : see triage Mode of Arrival ED : Private vehicle, Ambulatory Track : Medical Languages : Uzbek Treatments Prior to Arrival : None Is Patient Female and 13-50 no hysterectomy : No MIGUEL KENDRICK Emilio 04/10/2017 10:55 CDT Pain Assessment Pain Symptoms : No MIGUEL KENDIRCK Eimlio 04/10/2017 10:55 CDT Respiratory Airway : Patent Respirations : Unlabored Respiratory Pattern : Regular MIGUEL KENDRICK 04/10/2017 10:55 CDT Cardiovascular Heart Rhythm : Regular Skin Color : Normal for ethnicity Skin Description : Dry Skin Temperature : Warm CHARLIE KENDRICKVERNA Jhaveri 04/10/2017 10:55 CDT Neurological Last Well Time Known : Not applicable Level of Consciousness : Alert Orientation : Oriented x 3 Characteristics of Speech : Appropriate for age MIGUEL KEDNRICK Emilio 04/10/2017 10:55 CDT ED Psychosocial Affect/Behavior : Calm Domestic Abuse Concerns : None Behavioral Health Screen/Safety Assmt : No CHARLIE KENDRICKVERNA Jhaveri 04/10/2017 10:55 CDT Gastrointestinal Nutrition ED : Adequate KENDRICK MIGUEL Jhaveri 04/10/2017 10:55 CDT Musculoskeletal Fall Prevention Education Provided : MIGUEL FRAUSTO 04/10/2017 10:55 CDT Social Habits Exposure to Tobacco Smoke : Care provider denies smoking in home, Other: never Smoking Status : Never smoker Tobacco 2A : No Tobacco Use/Currently Using : No Tobacco Use/Last 30 Days : No Tobacco Use/Last 12 months : No MIREILLECHARLIEVERNA Jhaveri 04/10/2017 10:55 CDT Alcohol Use Grid Alcohol Use : Yes Type : Liquor Frequency : Occasionally MIGUEL KENDRICK 04/10/2017 10:55 CDT Recreational Drug Use Grid Drug Use : Current Type : Alcohol Route : Oral Frequency : Occasionally MIGUEL KENDRICK 04/10/2017 10:55 CDT Peripheral IV Peripheral IV Assess/Intervention Grid Peripheral IV #1 IV Activity : Start Date of Insertion : 04/10/2017 CDT IV Site : Antecubital Laterality : Right Catheter Size : 20 MIGUEL KENDRICK 04/10/2017 10:55 CDT [email or web address] Document Id: [id number] CDT!58 Miguel Kendrick R.N. - 04/10/2017 10:32 AM CDT ED Triage Assessment Document Has Been Updated ED Triage Assessment Entered On: 04/10/2017 10:55 CDT Performed On: 04/10/2017 10:32 CDT by MIGUEL KENDRICK Reason For Visit (As Of: 04/10/2017 10:55:40 CDT) Problems(Active) Abnormal Liver Function Test (ICD-9-CM :790.6 ) Name of Problem: Abnormal Liver Function Test ; Onset Date: 10/05/2014 ; Recorder: ALBANIA VARMA APRN, YURI, IVANA; Confirmation: Confirmed ; Classification: Medical ; Code: 790.6 ; Contributor System: PowerChart ; Last Updated: 11/17/2014 12:51 BENCH TECHNICIAN ; LifeCycle Status: Active ; Responsible Provider: ALBANIA VARMA APRN, YURI, EXHIBITIONS AND COLLECTIONS MANAGER; Vocabulary: ICD-9-CM Allergic rhinitis, unspecified (ICD-9-CM :477.9 [...] System: PowerChart ; Last Updated: 10/25/2010 20:18 BENCH TECHNICIAN ; Life Cycle Date: 10/25/2010 ; Life Cycle Status: Active ; Responsible Provider: PATTI ALMENDAREZ LPN; Vocabulary: ICD-9-CM Atrophic vaginitis (ICD-9-CM :627.3 ) Name of Problem: Atrophic vaginitis ; Onset Date: 07/27/2012 ;Recorder: ALBANIA VARMA APRN, DNP, CNP; Confirmation: Confirmed ; Classification: Medical ; Code: 627.3 ; Last Updated: 07/27/2012 11:32 BENCH TECHNICIAN ; Life Cycle Status: Active ; Responsible Provider: ALBANIA VARMA APRN, DNP, CNP; Vocabulary: ICD-9-CM Bursitis Hip/Trochanertic (ICD-9-CM :726.5 ) Name of Problem: Bursitis Hip/Trochanertic ; Onset Date: 10/20/2011 ; Recorder: ALBANIA VARMA APRN, DNP, CNP; Confirmation: Confirmed ; Classification: Medical ; Code: 726.5 ; Last Updated: 10/20/2011 9:54 BENCH TECHNICIAN ; Life Cycle Status: Active ; Responsible Provider: ALBANIA VARMA APRN, DNP, CNP; Vocabulary: ICD-9-CM Cataract NOS (ICD-9-CM :366.9 ) Name of Problem: Cataract NOS ; Onset Date: 1991 ; Recorder: PATTI ALMENDAREZ LPN; Confirmation: Confirmed ; Classification: Nursing ; Code: 366.9 ; Contributor System: [employer] ; Last Updated: 01/21/2011 10:04 CDT ; Life Cycle Date: 10/25/2010 ; Life Cycle Status: Active ; Responsible Provider: PATTI ALMENDAREZ LPN; Vocabulary: ICD-9-CM ; Comments: 12/31/2010 12:11 - PATTI ALMENDAREZ LPN date unknown Celiac Disease (ICD-9-CM :579.0 ) Name of Problem: Celiac Disease ; Onset Date: 02/26/2007 ; Recorder: PATTI ALMENDAREZ LPN; Confirmation: Confirmed ; Classification: Nursing ; Code: 579.0 ; ContributorSystem: [employer] TechnologyChart ; Last Updated: 10/25/2010 20:20 BENCH TECHNICIAN ; Life Cycle Date: 10/25/2010 ; Life [...] Medical ; Code: J38.3 ; Contributor System: PowerChart ; Last Updated: 07/10/2015 10:30 CDT ; Life Cycle Status: Active ; Responsible Provider: ALBANIA VARMA APRN, DNP, CNP; Vocabulary: ICD-10-CM Diverticulitis of large intestine (ICD-9-CM :562.11 ) Name of Problem: Diverticulitis of large intestine ; Onset Date: 10/28/2010 ; Recorder: ALBANIA VARMA APRN, DNP, CNP; Confirmation: Confirmed ; Classification: Medical ; Code: 562.11 ; Last Updated: 10/28/2010 16:30 BENCH TECHNICIAN ; Life Cycle Status: Active; Responsible Provider: ALBANIA VARMA APRN, DNP, CNP; Vocabulary: ICD-9-CM Eye disorder (ICD-9-CM :379.8 ) Name of Problem: Eye disorder ; Recorder: TAMMY ACEVES MD; Confirmation: Confirmed ; Classification: UPDATE NEEDED ; Code: 379.8 ; Contributor System: PowerChart ; Last Updated: 11/12/2015 4:13 BENCH TECHNICIAN ; Life Cycle Date: 01/05/2012 ; Life Cycle Status: Active ; Responsible Provider: TAMMY ACEVES MD; Vocabulary: ICD-9-CM ; Comments: 01/21/2012 9:37 - MATTHEW BORDEN LPN date unknown Fracture of rib (SNOMED CT :06072681 ) Name of Problem: Fracture of rib ; Onset Date: 05/12/2013 ; Recorder: SUJATHA MAR LPN; Confirmation: Confirmed ; Classification: Nursing ; Code: 67533069 ;Contributor System: PowerChart ; Last Updated: 06/07/2013 8:10 CDT ; Life Cycle Date: 06/07/2013 ; Life Cycle Status: Active ; Responsible Provider: SUJATHA MAR LPN; Vocabulary: SNOMED CT ; Comments: 06/07/2013 8:10 - MAR, SUJATHA R 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 Glaucoma (ICD-9-CM :365.44 ) Name of Problem: Glaucoma ; Onset Date: 1986 ; Recorder: PATTI ALMENDAREZ LPN; Confirmation: Confirmed ; Classification: Nursing ; Code: 365.44 ; Contributor System: PowerChart ; Last Updated: 11/12/2015 4:13 BENCH TECHNICIAN ; Life Cycle Date: 10/25/2010 ; Life Cycle Status: Active ; Responsible Provider: PATTI ALMENDAREZ LPN; Vocabulary: ICD-9-CM ; Comments: 12/31/2010 12:11 - PATTI ALMENDAREZ LPN date unknown Glaucoma (SNOMED CT :32079675 ) Name of Problem: Glaucoma ; Recorder: TAMMY ACEVES MD; Confirmation: Confirmed ; Classification: Medical ; Code: 11678354 ; Contributor System: [employer] ; Last Updated: 01/05/2012 18:52 CDT ; Life Cycle Date: 01/05/2012 ; Life Cycle Status: Active ; ResponsibleProvider: TAMMY ACEVES MD; Vocabulary: SNOMED CT ; Comments: 01/21/2012 9:37 - MATTHEW BORDEN LPN date unknown Hernia, hiatal (ICD-9-CM :553.3 ) Name of Problem: Hernia, hiatal ; Onset Date: 10/31/2013 ; Recorder: ALBANIA VARMA APRN, DNP, CNP; Confirmation: Confirmed ; Classification: Medical ; Code: 553.3 ; Last Updated: 10/31/2013 11:53 BENCH TECHNICIAN ; Life Cycle Status: Active ; Responsible Provider: ALBANIA VARMA APRN, DNP, CNP; Vocabulary: ICD-9-CM Osteopenia (ICD-9-CM :733.90 ) Name of Problem: Osteopenia ; Onset Date: 02/26/1987 ; Recorder: PATTI ALMENDAREZ LPN; Confirmation: Confirmed ; Classification: Nursing ; Code: 733.90 ; Contributor System: PowerChart ; Last Updated: 10/25/2010 20:19 BENCH TECHNICIAN ; Life Cycle Date: 10/25/2010 ; Life Cycle Status: Active ; Responsible Provider: PATTI ALMENDAREZ LPN; Vocabulary: ICD-9-CM Diagnoses(Active) Allergic reaction - major Date: 04/10/2017 ; Diagnosis Type: Reason For Visit ; Confirmation: Complaint of ; Clinical Dx: Allergic reaction - major ; Classification: Medical ; Clinical Service: Emergency medicine ; Code: PNED ; Probability: 0 ; Diagnosis Code: [id number] Triage Chief Complaint Description : Pt comes in with an allergic reaction to nuts. On arrival pt sats 98 %. Epi pen gave immediately Information Given By : Patient Present in Room During Exam/Procedure : Spouse Mode of Arrival ED : Private vehicle, Ambulatory Track : Medical Languages : Uzbek Vital Signs Assessed : Yes GCS Assessed : Yes Treatments Prior to Arrival : None Is Patient Female and 13-50 no hysterectomy : No MIGUEL KENDRICK 04/10/2017 10:52 CDT Vital Signs Temperature Core : 36.4 DegC(Converted to: 97.5 DegF) (LOW) Peripheral Pulse Rate : 64 /min Respiratory Rate : 18 /min Systolic Blood Pressure : 218 mmHg (>HHI) Diastolic Blood Pressure : 93 mmHg (>HHI) NIBP Mean : 135 mmHg SpO2 : 98 % Oxygen Therapy : Room air MIGUEL KENDRICK 04/10/2017 10:52 CDT Nabil Coma Eye Opening Response Nabil : Spontaneously Best Verbal Response [place] : Oriented Best Motor Response [place] : Obeys simple commands Nabil Coma Score : 15 MIGUEL KENDRICK 04/10/2017 10:52 CDT Pain Assessment Pain Symptoms : No MIGUEL KENDRICK 04/10/2017 10:52 CDT Comfort Measures Comfort Measures Grid Rest : Yes MIGUEL KENDRICK 04/10/2017 10:52 CDT ED Physician Notification Time ED Physician Notification Time : 04/10/2017 10:32 CDT MIGUEL KENDRICK 04/10/2017 10:52 CDT CAMI CAMI Level 1 : No CAMI Level 2 : No CAMI Level 3 : Many Vital Signs CAMI : No MIGUEL KENDRICK 04/10/2017 10:52 CDT DCP GENERIC CODE Tracking Acuity : 2 -Emergent Tracking Group : [facility] ED MIGUEL KENDRICK 04/10/2017 10:52 CDT Allergy (As Of: 04/10/2017 10:55:40 CDT) Allergies (Active) Glutens Estimated Onset Date: Unspecified ; Created By: PATTI ALMENDAREZ LPN; Reaction Status: Active; Category: Drug ; Substance: Glutens ; Type: Allergy ; Updated By: PATTI ALMENDAREZ LPN; Reviewed Date: 04/10/2017 10:55 CDT miconazole topical Comments: Comment 1: MICONAZOLE NITRATE ; Created By: Contributor_system, [facility]AL[facility]_SYS; Reaction Status: Active ; Category: Drug ; Substance: miconazole topical ; Type: Unknown ;Updated By: Contributor_system, [facility]; Reviewed Date: 04/10/2017 10:55 CDT Nuts Estimated Onset Date: Unspecified ; Created By: PATTI ALMENDAREZ LPN; Reaction Status: Active ; Category: Food ; Substance: Nuts ; Type: Allergy ; Updated By: PATTI ALMENDAREZ LPN; Reviewed Date: 04/10/2017 10:55 CDT Immunizations Immunizations Current : Yes MIGUEL KENDRICK - 04/10/2017 10:52 CDT Source: [employer] Document Id: [id number] CDT!43 documented in this encounter Miscellaneous Notes Miscellaneous - Faviola Wilkinson R.N. - 04/10/2017 11:55 AM CDT Valuables/Belongings Valuables/Belongings Entered On: 04/10/2017 11:55 CDT Performed On: 04/10/2017 11:55 CDT by FAVIOLA WILKINSON RN Valuables/Belongings Home Medication Disposition : None brought in with patient FAVIOLA WILKINSON RN - 04/10/2017 11:55 CDT Source: [employer] Document Id: [id number] CDT!3 Miscellaneous - Conversion, Historical Provider Ser - 04/10/2017 11:55 AM CDT Coding Summary-Paper Based CODING DATE: 04/17/2017 FINAL [facility]: * Discharged to Home or Self Care PAYOR: Medicare ADMIT DX: T78.09XAAnaphylactic reaction due to other food products, initial encounter REASON FOR VISIT DX: T78.09XA Anaphylactic reaction due to other food products, initial encounter FINAL DX: PRINCIPAL: T78.09XA Anaphylactic reaction due to other food products, initial encounter SECONDARY: Y92.[address] the place of occurrence of the external cause PROCEDURES DOCTOR NAME DATE NOTE: The code number assigned matches the documented diagnosis and / or procedure in the patient's chart. However, the narrative phrase printed from the coding software may appear abbreviated, or result in slightly different terminology. Coded By: BONG CHAPIN Date Saved: 04/17/2017 01:05 pm Source: [employer] Document Id: [id number] Miscellaneous - Faviola Wilkinson RDannN. - 04/10/2017 10:33 AM CDT Facility Charge Ticket 2.0 11.0 DX Facility Charge Ticket 2.0 11.0 DX Entered On: 04/10/2017 11:55 CDT Performed On: 04/10/2017 10:33 CDT by FAVIOLA WILKINSON RN Facility Charge Ticket 2.0 11.0 DX ED Other Charges : Standard ED Encounter TVL Level Translated RTF : Allergic reaction - major TVL:5 TVL Level for Facility Charge Ticket : Level 5 Arrival Mode Calc : 1 Mode of Arrival ED : Private vehicle, Ambulatory [place] Mode of Arrival Interpreted : Standard [place] Process Management : None [place] Order Management : None 30 Minutes Critical Care : No Nursing Notes RTF : Triage Forms ED Triage Assessment,04/10/17 10:32,MIGUEL KENDRICK Nursing Notes ED Primary Assessment,04/10/17 10:55,MIGUEL KENDRICK ED Pain Assessment,04/10/17 11:55,FAVIOLA WILKINSON RN [place] Nursing Assessment : Triage and 3-5 nursing assessments [place] Disposition : Discharge Disposition RTF : discharge [place] Total Points with Diagnosis Control : 12 [place] Visit Level : 46550 Level 4 Treatments Prior to Arrival : None FAVIOLA WILKINSON RN - 04/10/2017 11:55 CDT Source: [employer] Document Id: [id number] CDT!18 documented in this encounter Plan of Treatment Not on filedocumented as of this encounter Visit Diagnoses Not on filedocumented in this encounter
--- OUTSIDE RECORDS SUMMARY | 2022-05-06 13:10 | XMS_ITS | Encounter Summary ---
:1935 Author Organization [facility] Address [address] [place] [address] Care Team Providers Name Role Phone Unavailable Primary Care Provider Unavailable Encounter Details Date Type Department Care Team Description 04/21/2017 - Hospital Encounter HX [facility] [place]uff, 06/03/2017 EARLINE Huff M.D. [address] [place] [id number] Social History Tobacco Use Types Packs/Day Years Used Date Smoking Tobacco: Never Sex Assigned at Date Recorded Not on file documented as of this encounter Discharge Summaries Bianca Villalobos P.T. - 06/04/2017 10:23 AM CDT Discharge summary: Patient was evaluated positional vertigo x2 treatment sessions. Patient's plan of care included SEX WORKER OR ESCORT maneuvers. Patient will be discharged from physical therapy was symptom resolution. Patient has all contact information if symptoms should reoccur. Electronically Signed By: BIANCA VILLALOBOS On: 06/04/2017 10:25 AM Source: [facility] POWERCHART Document Id: [id number] documented in this encounter Medications at Time [...] daily. capsule documented as of this encounter Progress Notes Bianca Villalobos P.T. - 04/22/2017 1:18 PM CDT Progress note: Patient reports her symptoms are a little bit better but continues to have some residual dizziness. She also describes lightheadedness. Today we performed Hallpike [place] assessment to reassess for positional vertigo. Patient did test positive with nystagmus with right posterior canal. Today we performedright posterior canal maneuvers x2. Patient was symptomatic during maneuvers. Plan will be to have patient contact therapist if she continues to have symptoms tomorrow. Total treatment time was 18 minutes. Electronically Signed By: BIANCA VILLALOBOS On: 04/22/2017 01:21 PM Source: [facility] POWERCHART Document Id: [id number] documented in this encounter H&P Notes Bianca Villalobos P.T. - 04/21/2017 12:49 PM CDT Initial evaluation: Patient presents to physical therapy for positional vertigo. Patient has had multiple episodes of positional vertigo in the past with successful treatment with SEX WORKER OR ESCORT maneuvers. Patient reports her symptoms began with insidious onset couple weeks ago. She was getting out of the shower at that time. Patient describes symptoms of spinning, lightheadedness, disequilibrium, oscillopsia, dizziness, nausea. Patient's symptoms are treated with head movements including looking down or bending over. Patient didtrial maneuvers at home on but was unable to successfully treat this time. Past medical history: Positional vertigo, abnormal liver function, rheumatoid arthritis, cataracts, disease of the vocal cord, bone disorder, diverticulitis, I disorder, glaucoma, diaphragmatic hernia, enthesophy liver, chest wall pain, rhinitis, and celiac. Allergies: Gluten, nuts, miconazole topical. Medications: EpiPen, gabapentin, Flonase, Ming D12, Vagifem, meclizine. Physical examination: Patient ambulates into physical therapy with handheld assist to imbalance related to the vertigo. Patient normally ambulates safely independently without the use an assistive device. Patient does have an increased fall risk with the vertigo until symptoms have resolved. Patient demonstrates cervical range of motion within functional limits. Performed Hallpike [place] testing was tested positive for rightposterior canal nystagmus with a latency of 5 seconds in a duration of 20 seconds. Patient will be treated for right posterior canal positional vertigo. Patient consents to therapy treatment. Patient does require skilled physical therapy for canalith repositioning. Impression report plan: Performed to right posterior canal maneuvers x2. Patient was symptomatic during maneuvers. Toleratedwell. Patient goals: 1. Patient will be symptom free within 3 weeks. 2. 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 Physical therapy plan of care SEX WORKER OR ESCORT maneuvers. Patient was evaluated for positional vertigo today. Comorbidities include history of vertigo and glaucoma. Patient's symptoms are evolving with a low level complexity noted in her evaluation today plan of be to see patient for up to 4 treatment sessions over 3 weeks is needed to resolve symptoms. Patient did well with maneuvers today show contact therapisttomorrow if symptoms do not resolve patient will be discharged from therapy in 3 weeks if she does not return. Electronically Signed By: BIANCA VILLALOBOS On: 04/21/2017 12:59 PM Source: [employer] Document Id: [id number] documented in this encounter Miscellaneous Notes Miscellaneous - Conversion, Historical Provider Ser - 05/01/2017 3:17 PM CDT Coding Summary-Paper Based CODING DATE: 05/01/2017 FINAL [facility] STATUS: Still Patient/Expected to Rtn Oupt [facility] PAYOR: Medicare ADMIT DX: REASON FOR VISIT DX: FINAL DX: PRINCIPAL: H81.11 Benign paroxysmal vertigo, right ear SECONDARY: M06.9 Rheumatoid arthritis, unspecified J38.3 Other diseases of vocal cords PROCEDURES DOCTOR NAME DATE NOTE: The code number assigned matches the documented diagnosis and / or procedure in the patient's chart. However, the narrative phrase printed from the coding software may appear abbreviated, or result in slightly different terminology. Coded By: FRANCIS SEQUEIRAH, CCS Date Saved: 05/01/2017 03:17 pm Source: [employer] Document Id: [id number] documented in this encounter Plan of Treatment Not on filedocumented as of this encounter Visit Diagnoses Not on filedocumented in this encounter
--- OUTSIDE RECORDS SUMMARY | 2022-05-06 13:10 | XMS_ITS | Encounter Summary ---
:1935 Author Organization [facility] Address [address] [place] [address] Care Team Providers Name Role Phone Elsewhere, Pcp Primary Care Provider Unavailable Encounter Details Date Type Department Care Team Description 04/14/2018 Hospital Encounter [facility] [place] [place] [address] [place], [place] [id number] Social History Tobacco Use Types Packs/Day [...] Diagnosis CT ABDOMEN PELVIS RAD - Routine 04/14/2018 9:21 Lesion Pancreas Res ults for this WITHOUT AND WITH (most inpatients AM CDT (HCC) procedu re are in IV CONTRAST and all the results outpatients) section. documented in this encounter Results CT Abdomen Pelvis without and with IV Contrast (04/14/2018 9:21 AM CDT) Anatomical Region Laterality Modality Abdomen, Pelvis, Abdominal RST LOS N/A Compu radha Tomography Specimen (Source) Anatomical Collection Method Collection Time Re ceived Time Location / / Volume Laterality 04/14/2018 9:34 AM CDT Impressions 04/14/2018 11:23 AM CDT IMPRESSION: 1. ??Markedly hyperenhancing nodule invo lving the uncinate process of the pancreas demonstrating stability or mini mal interval increase in size of the CT enterography of 02/03/2007. While not ent irely specific, favored diagnostic considerations would include a neuroendo crine tumor. Essential stability since 2006 would favor an indolent process. 2. ??Additional chronic changes as detai led above. Narrative 04/14/2018 11:23 AM CDT EXAM: CT ABDOMEN PELVIS WITHOUT AND WITH IV CONTRAST COMPARISON: 04/09/2018. FINDINGS: LUNG BASES: Partially visualiz ed large esophageal hiatal hernia. Scattered atelectatic changes and scarri ng in the LUNG BASES. Benign granuloma left lower lobe. No pleural or pericardi al effusions. Scattered calcific atheromatous changes. ABDOMEN/PELVIS: PANCREAS: Approximately 1.0 x 0.9 cm mar kedly hyperenhancing focus involving the uncinate process of the pancreas on wanda rial phase imaging. On portal venous phase imaging, this focus demonstrates l ess pronounced enhancement. Of note, this finding was present and appears ess entially stable to minimally progressed since the CT enterography performed on . No evidence of pancreatic duct dilatatio n. There is mild heterogeneous fatty replacement of the pancreatic parenchyma similar to previous exams. No pancreatic calcifications are noted. ADDITIONAL FINDINGS: Stable left hepatic lobe cyst. Fatty infiltration of the liver. No bladder, bile ducts, spleen an d adrenal glands are unremarkable in appearance. Small accessory spleen. Extr arenal pelves noted with slight prominence of the extrarenal pelvis on t he right, slightly progressed from the previous exam uterus is surgically absen t. Urinary bladder is decompressed. Extensive colonic diverticulosis. No mayur dence of diverticulitis. Moderate amount of stool in the colon. Bowel is decompre ssed. Normal appendix. No ascites. No adenopathy. Ossific atheromatous changes . Normal caliber abdominal aorta. MUSCULOSKELETAL: Degenerative spondyloti c disc space changes and facet arthropathy in the spine noted. No patho logic bone lesions. Procedure Note Manny Jewell M.D. - 04/14/2018Formatt ing of this note might be different from the original. EXAM: CT ABDOMEN PELVIS WITHOUT AND WITH IV CONTRAST COMPARISON: 04/09/2018. FINDINGS: LUNG BASES: Partially visualiz ed large esophageal hiatal hernia. Scattered atelectatic changes and scarri ng in the LUNG BASES. Benign granuloma left lower lobe. No pleural or pericardi al effusions. Scattered calcific atheromatous changes. ABDOMEN/PELVIS: PANCREAS: Approximately 1.0 x 0.9 cm mar kedly hyperenhancing focus involving the uncinate process of the pancreas on wanda rial phase imaging. On portal venous phase imaging, this focus demonstrates l ess pronounced enhancement. Of note, this finding was present and appears ess entially stable to minimally progressed since the CT enterography performed on . No evidence of pancreatic duct dilatatio n. There is mild heterogeneous fatty replacement of the pancreatic parenchyma similar to previous exams. No pancreatic calcifications are noted. ADDITIONAL FINDINGS: Stable left hepatic lobe cyst. Fatty infiltration of the liver. No bladder, bile ducts, spleen an d adrenal glands are unremarkable in appearance. Small accessory spleen. Extr arenal pelves noted with slight prominence of the extrarenal pelvis on t he right, slightly progressed from the previous exam uterus is surgically absen t. Urinary bladder is decompressed. Extensive colonic diverticulosis. No mayur dence of diverticulitis. Moderate amount of stool in the colon. Bowel is decompre ssed. Normal appendix. No ascites. No adenopathy. Ossific atheromatous changes . Normal caliber abdominal aorta. MUSCULOSKELETAL: Degenerative spondyloti c disc space changes and facet arthropathy in the spine noted. No patho logic bone lesions. IMPRESSION: 1. Markedly hyperenhancing nodule involv ing the uncinate process of the pancreas demonstrating stability or mini mal interval increase in size of the CT enterography of 02/03/2007. While not ent irely specific, favored diagnostic considerations would include a neuroendo crine tumor. Essential stability since 2006 would favor an indolent process. 2. Additional chronic changes as detaile d above. Antonia Aldrich C.N.P. IMRas CT PROCEDURES documented in this encounter Visit Diagnoses Diagnosis Lesion Pancreas documented in this encounter Administered Medications Inactive Administered Medications - up to 3 most recent administrations Medication Order MAR Action Action Date Dose Rate Site iohexol 300 mg iodine/mL solution Given 04/14/2018 9:25 AM CDT 1 40 mL 140 mL (OMNIPAQUE) 140 mL, intravenous, Once in imaging, contrast, Starting on Thu04/14/18 at 0832, For 1 dose sodium chloride 0.9 % flush 75 mL Given 04/14/2018 9:24 AM CDT 75 mL 75 mL, intravenous, Once in imaging, line care, Starting on Thu04/14/18 at 0832, For 1 dose sodium chloride injection 10 mL Given 04/14/2018 9:24 AM CDT 10 mL 10 mL, intravenous, As needed, line care, Starting on Thu04/14/18 at 0832 documented in this encounter Care Teams Yarding Engineer Relationship Specialty Start Date End Date Elsewhere, Pcp PCP - General Family Medicine 08/26/17 01/30/21 documented as of this encounter
--- OUTSIDE RECORDS SUMMARY | 2022-05-06 13:10 | XMS_ITS | Encounter Summary ---
:1935 Author Organization [facility] Address [address] [place] [address] Care Team Providers Name Role Phone Elsewhere, Pcp Primary Care Provider Unavailable Encounter Details Date Type Department Care Team Description 12/14/2017 Hospital Encounter Department of Seven Rene Screen ing Mammogram Radiology in [facility] Average Risk Patient [address], [address] [place] [id number] Social History Tobacco Use Types Packs/Day [...] Comments Diagnosis BI BREAST RAD - Routine 12/14/2017 11:10 Screening Results fo r this SCREENING (most inpatients AM CDT Mammogram Average proced ure are in BILATERAL and all Risk Patient the results outpatients) section. documented in this encounter Results BI Breast Screening Bilateral (12/14/2017 11:10 AM CDT) Anatomical Region Laterality Modality Breast Bilateral Mammography Specimen (Source) Anatomical Collection Method Collection Time Re ceived Time Location / / Volume Laterality 12/14/2017 11:23 AM CDT Impressions 12/14/2017 11:25 AM CDT IMPRESSION: ??Negative. RECOMMENDATION: ??Annual Screening Mammo gram ASSESSMENT: ??BI-RADS: 1: Negative. Narrative 12/14/2017 11:25 AM CDT EXAM: ??BI BREAST SCREENING BILATERAL Current study was evaluated with a Compu ter Aided Detection (CAD) system. INDICATION: ??Screening mammogram. COMPARISON: ??Prior exams were available for comparison. DENSITY: ??b. There are scattered areas of fibroglandular density. FINDINGS: ??No mammographic findings of malignancy. Procedure Note Jd Forbes M.D. - 12/14/2017Formatt ing of this note might be different from the original. EXAM: BI BREAST SCREENING BILATERAL Current study was evaluated with a Compu ter Aided Detection (CAD) system. INDICATION: Screening mammogram. COMPARISON: Prior exams were available f or comparison. DENSITY: b. There are scattered areas of fibroglandular density. FINDINGS: No mammographic findings of ma lignancy. IMPRESSION: Negative. RECOMMENDATION: Annual Screening Mammogr am ASSESSMENT: BI-RADS: 1: Negative. Seven Rene M.D. IMG BI PROCEDURES documented in this encounter Visit Diagnoses Diagnosis Screening Mammogram Average Risk Patient documented in this encounter Care Teams Chart Computer Relationship Specialty Start Date End Date Elsewhere, Pcp PCP - General Family Medicine 08/26/17 01/30/21 documented as of this encounter
--- OUTSIDE RECORDS SUMMARY | 2022-05-06 13:10 | XMS_ITS | Encounter Summary ---
:1935 Author Organization [facility] Address [address] [place] [address] Care Team Providers Name Role Phone Unavailable Primary Care Provider Unavailable Encounter Details Date Type Department Care Team Description 07/08/2016 Hospital En[facility] Wisam Sebastian C.N.P. [address] [place] [address] (Wo rk) Social History Tobacco [...] Miscellaneous - Conversion, Historical Provider Ser - 07/08/2016 11:59 PM CDT Coding Summary-Paper Based CODING DATE: 07/11/2016 FINAL [facility] STATUS: * Discharged to Home or Self Care PAYOR: Medicare ADMIT DX: REASON FOR VISIT DX: FINAL DX: PRINCIPAL: R10.32 Left lower quadrant pain SECONDARY: N83.291 Other ovarian cyst, right side N83.292 Other ovarian cyst, left side PROCEDURES DOCTOR NAME DATE NOTE: The code number assigned matches the documented diagnosis and / or procedure in the patient's chart. However, the narrative phrase printed from the coding software may appear abbreviated, or result in slightly different terminology. Coded By: MONE RESENDIZ Date Saved: 07/11/2016 12:56 pm [facility] Document Id: [id number] documented in this encounter Plan of Treatment Not on filedocumented as of this encounter Visit Diagnoses Not on filedocumented in this encounter
--- OUTSIDE RECORDS SUMMARY | 2022-05-06 13:10 | XMS_ITS | Encounter Summary ---
:1935 Author Organization [facility] Address [address] [place] [address] Care Team Providers Name Role Phone Elsewhere, Pcp Primary Care Provider Unavailable Encounter Details Date Type Department Care Team Description 08/10/2018 Clinical Communication Department of Emilio Ruiz Cannon R, L.P.N. [address] [address] [place], [place] [phone] (Work) [phone] Social History Tobacco Use Types Packs/Day Years Used Date Smoking Tobacco: Never Sex Assigned at Date Recorded Not on file documented as of this encounter Miscellaneous Notes Telephone Encounter - Leah Batista L.P.N. 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 TOP PUBLISHING OPERATOR documented in this encounter Plan of Treatment Not on filedocumented as of this encounter Visit Diagnoses Not on filedocumented in this encounter Care Teams Button Sew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 Relationship Specialty Start Date End Date Elsewhere, Pcp PCP - General Family Medicine 08/26/17 01/30/21 documented as of this encounter
--- OUTSIDE RECORDS SUMMARY | 2022-05-06 13:10 | XMS_ITS | Encounter Summary ---
:1935 Author Organization [facility] Address [address] [place] [address] Care Team Providers Name Role Phone Unavailable Primary Care Provider Unavailable Encounter Details Date Type Department Care Team Description 10/08/2016 Hospital Encounter HX [facility] Bailey Nino P.A.-C. [address] [address] [place] [address] (Wo rk) Social History Tobacco Use Types Packs/Day Years Used Date Smoking Tobacco: Never Sex Assigned at Date Recorded Not on file documented as of this encounter Last Filed Vital Signs Vital Sign Reading Time Taken Comments Blood Pressure 124/60 10/08/2016 12:51 PM CERTIFIED OPHTHALMIC MEDICAL TECHNICIAN Pulse 76 10/08/2016 12:51 PM CERTIFIED OPHTHALMIC MEDICAL TECHNICIAN Temperature - - Respiratory Rate - - Oxygen Saturation - - Inhaled Oxygen Concentration - - Weight 70.6 kg (155 lb 10.3 oz) 10/08/2016 12:51 PM CERTIFIED OPHTHALMIC MEDICAL TECHNICIAN Height - - Body Mass Index 26.57 04/07/2016 2:18 PM CDT documented in this encounter Medications [...] daily. capsule documented as of this encounter Consult Notes Bailey Gallegos P.A.-C. - 10/08/2016 1:56 PM CST Consult Note CHIEF COMPLAINT/REASON FOR VISIT consult regarding intermittent LLQ pain x 5 years. denies nausea, vomiting, or diarrhea. REFERRAL SOURCE Dr. Hall HISTORY OF PRESENT ILLNESS Ms. Kathryn Hamm is a 81 year old female who presents with intermittent abdominal pain for 5 years. Patient has a past medical history significant for Celiac disease well controlled with gluten-free diet and colonic diverticula currently on fiber supplementation. S/p hysterectomy She denies any pain today but notes that she had several episodes throughout the years. Pain can range from mild to quite severe. Most episodes are short lived but she had a few cases in which the pain lasted several hours and eventually caused the area to become sore for several days. Her most recent episode was in late August, but she estimates there are usually several months between each episode. She cannot identify any exacerbating factors although she believes it may be related to eating. No alleviating factors except for time. She denies associated symptoms of nausea, vomiting, fever, chills, diarrhea, or constipation. No bloody or dark tarry stools. Patient has had a variety of diagnostic studies to evaluate this pain. Patient had a colonoscopy [id number] which showed extensive sigmoid diverticulosis. Abdominal ultrasound noted no abnormalities identified in the left lower quadrant although multiple gallstones were noted with a positive Pagan's. Ab dominal CT from March 2016 found extensive colonic diverticulosis without evidence of diverticulitis.Transvaginal ultrasound in June of 2016 showed small bilateral ovarian cysts which were unchanged. MEDICATIONS Ming-D 12 Hour 60 mg-120 mg oral tablet, extended release, 1 tab(s), PO, 2xDay, 3 refills Citracal, 1tab, 2xDay Cosopt ophthalmic solution, 1 drop(s), in the right eye only, Daily ferrous sulfate 325 mg (65 mg elemental iron) oral tablet, 325 mg, 1 tab(s), PO, Daily Flonase 50 mcg/inh nasal spray, 2 spray(s), Nostrils(Both), Daily, 1 refills gabapentin 300 mg oral capsule, 900 mg, 3 cap(s), PO, Daily, 0 refills meclizine 12.5 mg oral tablet, 1-2 tab(s), PO, 3xDay, PRN, 1 refills Multiple Vitamins oral tablet, 1 tab(s), PO, Daily omeprazole 40 mg oral delayed release capsule, 40 mg, 1 cap(s), PO, Daily Restasis, one drop, Eyes(Both), q12hr Vagifem 10 mcg vaginal tablet, 10 mcg, Member No [phone], Vaginal, 2xWeek, 2 refills Vitamin B-12, 1,000 mcg, PO, Daily ALLERGIES Glutens miconazole topical Nuts PAST MEDICAL HISTORY Chronic 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 (Week of 08/14/2010), Mammogram (07/22/2010), Mammogram (06/28/2010), Colonoscopy (02/01/2009), Laminectomy approach to lumbar spine (2008), Extracapsular cataract removal with insertion of intraocular lens prosthesis (1 stage procedure), manual or mechanical technique (eg, irrigation and aspiration or phacoemulsification).. (02/26/2007), HC COLONOSCOPY W SNARE REMOVAL TUMOR/POLYP/LESION - 12/31/06 (12/31/2006), HC ANTER COLPORRHAPHY,BLAD/VAGINA - 03/22/01 - ANTERIOR POSTERIOR REPAIR (03/22/2001), HC FLEX SIGMOIDOSCOPY W/WO JAMES SPEC BY BRUSH/WASH - (06/14/1999), Repair of cystocele (1994), Reduction mammaplasty.. (02/26/1982), Hysterectomy (11/04/1966), Hemorrhoidectomy, internal and external, single column/group;.. (02/26/1959), C GLAUCOMA SURG,TRABECU AB EXTERNO (), C VAGINAL HYSTERECTOMY - AGE 33 (), HC HEMORRHOIDECTOMY W BANDING/LIGATION (), HC REDUCTION OF LARGE BREAST - 1975 - BILATERAL (), HC REMOVAL OF TONSILS,<12 Y/O - Tonsillectomy < age 12 (), HC REMV CATARACT EXTRACAP,INSERT LENS (). SOCIAL HISTORY Date Time: 10/08/2016 12:51 Tobacco: Smoking Status: Never smoker Exposure: Care provider denies smoking in home, Other: never Alcohol: Use: Yes Recreational Drugs: Use: Current Type: Alcohol FAMILY HISTORY Mother: Negative: Father:Positive: Glaucoma Brother:Positive: Celiac disease; Down syndrome; Kidney SYSTEMS REVIEW Review of symptoms negative unless stated in HPI. Patient denies fever, chills, shortness of breath, chest pains, symptoms, MSK/neuro symptoms. VITAL SIGNS T: 36.4 ??C (Core) HR: 76 BP: 124 / 60 WT: 70.6 kg PHYSICAL EXAMINATION GENERAL: Patient is in no distress. Capable of full communication without difficulty. Patient is polite and cooperative. HEENT: Normocephalic. EOMI, PERRLA. Oropharynx without lesion of mucosa. Pharyngeal rises symmetrically without exudate. HEART: RRR, normal S1 and S2, no murmurs, gallops, or rubs appreciated. LUNGS: Clear to auscultation bilaterally. No expiratory wheeze. No accessory muscles of respirationnoted. ABDOMEN: Normal bowel sounds in all 4 quadrants. Abdomen soft and non distended. Nontender to palpation. No hepato-splenomegaly. No mass. EXTREMITIES: No neurovascular compromise. No cyanosis, clubbing or edema. No abnormal limb length. MSK: No joint swelling. Strength 5/5 and ROM intact bilaterally. DIAGNOSTIC RESULTS PROCEDURE: US Abdomen Limited COMPARISON: CT 04/07/2016 IMPRESSION: HISTORY: Right upper quadrant pain FINDINGS: Gallbladder: Multiple gallstones within the gallbladder. Positive sonographic Pagan's sign raises concern for acute cholecystitis. No significant gallbladder wall thickening or pericholecystic fluid. Biliary system: Common duct measures 3.6 mm. Liver: Diffusely hyperechoic compatible with hepatic steatosis. Cyst left hepatic lobe measures 2.8 cm, unchanged. Pancreas: Normal as visible. Aorta/IVC: Normal. Targeted ultrasound of the left lower quadrant was also performed, no focal abnormalities identified. Katelyn Mccoy MD 24-Sep-2016 09:12 IMPRESSION/REPORT/PLAN 1. LLQ abdominal pain: Reviewed labs and diagnostic studies with the patient and I suspect that herpain is likely due to the extensive sigmoid diverticulosis. Explained that the diverticula generallyshould not cause pain, but it is possible she is having very mild or subclinical episodes of divertic ulitis. In the future, we discussed that if her symptoms persists for longer durations, she should be evaluated and treated with antibiotics. For treatment, we discussed a high fiber diet aiming for 25-30g daily, I recommended Fibercon if she would like to take a dietary supplement. If she has frequent and recurrent episodes of diverticulitis, we may need to consider surgery in the future. Surely, she does not need surgery at this time. 30 minutes spent with patient, 25 minutes spent on counseling and coordination of care. Electronically Signed By: BAILEY GALLEGOS P.A.-C. On: 10/10/2016 12:15 PM Source: [facility] Document Id: [id number] IFIED OPHTHALMIC MEDICAL TECHNICIAN documented in this encounter Miscellaneous Notes Telephone Encounter - Conversion, Historical Provider Ser - 10/22/2016 4:26 PM CST *Phone Message Document Contains Addenda Addendum by CESAR LOCO CMA on October 24, 2016 13:09:21 CERTIFIED OPHTHALMIC MEDICAL TECHNICIAN Patient advised. She says she has sharp pains that last 3-6 minutes. This happens periodically throughout the day/week. I advised her that an attack as refered to below consist of constant pain. She is ok with continuing with high fiber diet and contacting us if pain worsens or doesn't go away. Addendum by CESAR LOCO CMA on October 24, 2016 10:38:45 CERTIFIED OPHTHALMIC MEDICAL TECHNICIAN Left message on machine to call back. Addendum by BAILEY GALLEGOS P.A.-C. on October 23, 2016 16:31:08 CERTIFIED OPHTHALMIC MEDICAL TECHNICIAN From: BAILEY GALLEGOS P.A.-C. To: Specialty Medicine Nurse; Sent: 10/23/2016 16:31:08 CERTIFIED OPHTHALMIC MEDICAL TECHNICIAN Subject: RE: *Phone Message Surgery for diverticulitis is more of an elective surgery especially if they never had complicationslike fisulas or abscesses. There isn't really any set guidelines for electing for surgical correction for diverticulitis. Typically, if patients are having multiple/recurrent attacks despite being on ahigh-fiber diet and/or if the attacks last for longer durations without any response to antibiotic therapy, then we should probably start moving towards discussing surgerical resection. Addendum by CESAR LOCO CMA on October 22, 2016 16:32:31 CERTIFIED OPHTHALMIC MEDICAL TECHNICIAN From: CESAR LOCO CMA ( Specialty Medicine Nurse) To: BAILEY GALLEGOS P.A.-C.; Sent: 10/22/2016 16:32:31 CERTIFIED OPHTHALMIC MEDICAL TECHNICIAN Subject: FW: *Phone Message From: SANTI LEO ( Internal Medicine Cleaning Team Member) To: Specialty Medicine Nurse; Sent: 10/22/2016 16:26:24 CERTIFIED OPHTHALMIC MEDICAL TECHNICIAN Subject: *Phone Message Caller is: ( ) Patient ( ) Mother ( ) Father ( ) Spouse ( ) Daughter ( ) Son ( ) Pharmacy ( X ) Other: Physician: [facility] Patient Reason for Call: Follow Up Message: Harman - Provider from [facility] - called with questions about follow up care for Kathryn. She was told surgery would be an option if she had 3 attacks of her Diverculitis within a year. What are the guidelines for the attacks? Should Kathryn come in to see Socrates? Advice/Action: Please follow up with Kathryn at [phone]. Thank You! Source used: ( ) Verbalizes understanding of instructions ( ) Instructed to call back if symptoms worsen or do not resolve ( ) Refused to see provider ( ) Appointment Scheduled ( ) OK to leave message on voice mail ( ) Patient told to expect return call: ( ) today ( ) tomorrow ( ) next work day ( ) Patient's email ( ) Patient told physician out of office, will call upon return call on ( ) ( ) Patient told physician out of office, routed to other physician ( ) Other ( ) Call back telephone number ( ) Call back cell phone number ( ) Source: [facility] [employer] Document Id: [id number] Miscellaneous - Cesar Loco, C.M.A. - 10/08/2016 12:51 PM CST Adult Welt Beater Intake/History Adult Welt Beater Intake/History Entered On: 10/08/2016 12:55 CERTIFIED OPHTHALMIC MEDICAL TECHNICIAN Performed On: 10/08/2016 12:51 CERTIFIED OPHTHALMIC MEDICAL TECHNICIAN by CESAR LOCO JAVA ARCHITECT Intake Chief Complaint : consult regarding intermittent LLQ pain x 5 years. denies nausea, vomiting, or diarrhea. Temperature Core : 36.4 DegC(Converted to: 97.5 DegF) (LOW) Peripheral Pulse Rate : 76 /min Heart Rhythm : Regular Systolic Blood Pressure : 124 mmHg Diastolic Blood Pressure : 60 mmHg NIBP Mean : 81 mmHg BP Location : Right upper extremity Blood Pressure Cuff Size : Regular Actual Weight : 70.6 kg(Converted to: 155 lb 10 oz) Weight Source : Standing scale Dosing Weight Clinic : 70.6 kg CESAR LOCO CMA 10/08/2016 12:51 CERTIFIED OPHTHALMIC MEDICAL TECHNICIAN General Info Information Given By : Patient Preferred Communication Mode : Verbal Languages : Albanian Is Patient Female and 13-50 no hysterectomy : No CESAR LOCO CMA 10/08/2016 12:51 CERTIFIED OPHTHALMIC MEDICAL TECHNICIAN Subjective Pain Symptoms : Yes CESAR LOCO CMA 10/08/2016 12:51 CERTIFIED OPHTHALMIC MEDICAL TECHNICIAN Pain Scale Pain Scale Verbal 0-10 : Open CESAR LOCO CMA 10/08/2016 12:51 CERTIFIED OPHTHALMIC MEDICAL TECHNICIAN Pain Pain Assessment Grid Pain 1 Location : Abdomen Laterality : Left Intensity : 0 Time Pattern : Intermittent CESAR LOCO CMA 10/08/2016 12:51 CERTIFIED OPHTHALMIC MEDICAL TECHNICIAN Dependent Habits Exposure to Tobacco Smoke : Care provider denies smoking in home, Other: never Smoking Status : Never smoker Tobacco 2A : No Tobacco Use/Currently Using : No Tobacco Use/Last 30 Days : No Tobacco Use/Last 12 months : No Alcohol Use : Yes CESAR LOCO CMA 10/08/2016 12:51 CERTIFIED OPHTHALMIC MEDICAL TECHNICIAN Caffeine Use Grid Caffeine Use : Past Type : Coffee Frequency : Weekly CESAR LOCO CMA 10/08/2016 12:51 CERTIFIED OPHTHALMIC MEDICAL TECHNICIAN Recreational Drug Use Grid Drug Use : Current Type : Alcohol Route : Oral Frequency : Occasionally CESAR LOCO CMA 10/08/2016 12:51 CERTIFIED OPHTHALMIC MEDICAL TECHNICIAN [facility] Document Id: [id number] CERTIFIED OPHTHALMIC MEDICAL TECHNICIAN!49 IFIED OPHTHALMIC MEDICAL TECHNICIAN documented in this encounter Plan of Treatment Not on filedocumented as of this encounter Visit Diagnoses Not on filedocumented in this encounter
--- OUTSIDE RECORDS SUMMARY | 2022-05-06 13:10 | XMS_ITS | Encounter Summary ---
:1935 Author Organization [facility] Address [address] [place] [id number] Care Team Providers Name Role Phone Elsewhere, Pcp Primary Care Provider Unavailable Encounter Details Date Type Department Care Team Description 08/10/2018 Nurse Only [employer] Antwan Rene M.D. [address] [place] [phone] [facility] Cielo Triplett, R.N. [address] [place] [phone] Clinic, in [address] [phone] Social History Tobacco Use Types Packs/Day Years Used Date Smoking Tobacco: Never Sex Assigned at Date Recorded Not on file documented as of this encounter Progress Notes Cielo Triplett, L.P.N. - 08/10/2018 11:15 AM CST Per patient's history she receives her flu shot in 2 doses. 0.25 mL one day and 0.25 mL the next day. Orders provided by Lucia Gamino to give first dose today. TENTER OPERATOR documented in this encounter Plan of Treatment Not on filedocumented as of this encounter Visit Diagnoses Diagnosis Immunization Only documented in this encounter Care Teams Laboratory Helper Relationship Specialty Start Date End Date Elsewhere, Pcp PCP - General Family Medicine 08/26/17 01/30/21 documented as of this encounter
--- OUTSIDE RECORDS SUMMARY | 2022-05-06 13:11 | XMS_ITS | Encounter Summary ---
:1935 Author Organization [facility] Address [address] [place] [id number] Care Team Providers Name Role Phone Unavailable Primary Care Provider Unavailable Encounter Details Date Type Department Care Team Description 09/27/2015 Hospital Encounter HX [facility] ED Saulo Zamorano III, M.D. [address] [place] [phone] (Wo rk) Social History Tobacco Use Types Packs/Day Years Used Date Smoking Tobacco: Never Assessed Sex Assigned at Date Recorded Not on file documented as of this encounter Last Filed Vital Signs Vital Sign Reading Time Taken Comments Blood Pressure 137/78 09/27/2015 10:56 AM SILVICULTURIST Pulse 66 09/27/2015 10:56 AM SILVICULTURIST Temperature - - Respiratory Rate 18 09/27/2015 10:56 AM SILVICULTURIST Oxygen Saturation - - Inhaled Oxygen Concentration - - Weight - - Height 162 cm (5' 3.78) 09/27/2015 10:56 AM SILVICULTURIST Body Mass Index - - documented in this encounter Discharge Summaries Cathie Kay R.NDann - 09/27/2015 12:16 PM CST ED Discharge Instructions [address] [address] Name: KATHRYN LEON Date of : 1935 12:00 AM Visit Date: 09/27/2015 10:41 AM [facility] Number: [phone] Address: [address] [place], [place] [address]on [facility] [phone] Primary Care Provider: HUNTER SEQUEIRA MD IMPORTANT: [facility] in [place] would like to thank you for allowing us to assist you with your healthcare needs. The following includes patient education materials and informationregarding your injury/illness. Diagnosis: 1:Vertigo Benign Positional (BPV) Jeff Follow-Up Instructions: With: Address: When: Physical therapy In 1 day 09/28/2015 With: Address: When: HUNTER SEQUEIRA [address] [place] [address] Business (1) Within As Needed Your Upcoming Appointments: Date Time Location Provider No Appointments found Patient Education Materials: Benign Positional Vertigo The inner ear is located behind the middle ear. It is a part of the balance center of the body. It contains small calcium particles within fluid filled canals (semi-circular canals). These particles can move out of position as a result of aging, head trauma or disease of the inner ear. Once that happens, movement of the head into certain positions may cause the particles to stimulate the inner ear and create the feeling of vertigo. Vertigo is a false feeling of motion (as if you or the room is spinning). A vertigo attack may causesudden nausea, vomiting and heavy sweating. Severe vertigo causes a loss of balance and may result in falling. During an attack of vertigo, head movement and body position changes will worsen symptoms. An episode of vertigo may last seconds, minutes or hours. Once you are over the first episode of vertigo, it may never return. Sometimes symptoms recur off and on over several weeks or longer. Home Care: ?? If symptoms are severe, rest quietly in bed. Change positions slowly. There is usually one position that will feel best, such as lying on one side or lying on your back with your head slightly raised on pillows. ?? Do not drive or work with dangerous machinery for one week after symptoms disappear, in case of asudden return of symptoms. ?? Take medicine as prescribed to relieve your symptoms. Unless another medicine was prescribed for nausea, vomiting and vertigo, you may use wazh-bun-lyjhyro motion sickness pills, such as meclizine (Bonine, Bonamine, Antivert) or dimenhydrinate (Dramamine). Follow Up with your doctor or as directed by our staff. Report any persistent ringing in the ear or hearing loss to your doctor. [NOTE: If you had a CT or MRI scan, it will be reviewed by a specialist. You will be notified of anynew findings that may affect your care.] Get Prompt Medical Attention if any of the following occur: ?? Worsening of vertigo not controlled by the medicine prescribed ?? Repeated vomiting not controlled by the medicine prescribed ?? Increased weakness or fainting ?? Severe headache or unusual drowsiness or confusion ?? Weakness of an arm or leg or one side of the face ?? Difficulty with speech or vision ?? Seizure ?? [phone] [facility], [address] [place] [address], [place] [address]. All rights reserved. This information is not [...] if you dont have one. Go to [email or web address] and click on Create Your Account. Then, follow the directions to complete the online fo rm. Youll be asked for your [facility] number which you can find at the top of this document. ED Tests and Procedures: Order Status Discharge Prescriptions & Home Medications: Medication/Strength Dose Route Frequency Indications/Special Instructions/Comments/Notes gabapentin (gabapentin 300 mg oral capsule) 900 mg Oral once a day mupirocin topical (Bactroban 2% topical ointment) 1 tj Topical three times a day omeprazole (omeprazole 40 mg oral delayed release capsule) 40 mg Oral two times a day 30-60 min prior to meals / last saw patient 03/30/15, no mention of f/u, but referred patient to Dr. Mosley at [facility] fluticasone nasal (Flonase 0.05 mg/inh nasal spray) 2 spray(s) Nostrils(Both) once a day estradiol topical (Vagifem 10 mcg vaginal tablet) 10 mcg Vaginal 2 times a week Member No [phone] meclizine (meclizine 12.5 mg oral tablet) 1-2 tab(s) Oral three times a day as needed for Dizziness fexofenadine-pseudoephedrine (Rochelle-D 12 Hour 60 mg-120 mg oral tablet, extended release) 1 tab(s)Oral two times a day jasmynCureeojanki beal [phone] ferrous sulfate (ferrous sulfate 325 mg (65 mg elemental iron) oral tablet) 325 mg Oral once a day *ibuprofen (ibuprofen 600 mg oral tablet) See Instructions Pain 1 tab(s) PO three times per day withfood as needed calcium citrate (Citracal) 1tab two times a day cycloSPORINE ophthalmic (Restasis) one drop Eyes(Both) every 12 hours cyanocobalamin (Vitamin B-12) 1,000 mcg Oral once a day multivitamin (Multiple Vitamins oral tablet) 1 tab(s) Oral once a day dorzolamide-timolol ophthalmic (Cosopt ophthalmic solution) 1 drop(s) once a day in the right eye only * You have let us know that you are not taking this medication as listed. Please talk with your primary care provider or the health care provider who prescribed the medication as soon as possible. Comment: Attention: If you have any medications [...] nurse or physician. Patient Signature or Responsible Democrat/Relationship Date Time Provider Signature Date Time IMPORTANT: [...] nurse or physician. Patient Signature or Responsible Democrat/Relationship Date Time Provider Signature Date Time This document has images extracted. Please consider using [employer] for all your patient education needs. Source: VoiceGem Document Id: [id number] ICULTURIST Cathie Kay R.N. - 09/27/2015 12:16 PM CST ED Depart Summary [facility] Emergency Department Clinical Discharge Summary PERSON INFORMATION Name KATHRYN LEON Age 80 Years 1935 12:00 AM Sex Female Language Iraqi PCP HUNTER SEQUEIRA MD Marital Status Visit Id Visit Reason Vertigo - recurrent; Vertigo Specialty Enc Type Emergency Med Service Emergency Medicine Referred by Track Group [facility] ED Discharge 09/27/2015 12:15 PM Tracking Id [id number] Checkout 09/27/2015 12:15 PM Checkin 09/27/2015 10:41 AM Acuity 4 -Less Urgent Dispo Type * Discharged to Home or Self Care Arrival 09/27/2015 10:41 AM Reg Status Complete LOS 000 01:34 Address: [address] [place] [phone] Comment: PROVIDER INFORMATION Provider Role Provider Contact Time CATHIE KAY DELIVERY RN Nurse 09/27/15 10:50 DIAGNOSIS 1:Vertigo Benign Positional (BPV) Jeff Comment: PATIENT EDUCATION INFORMATION Instructions: BENIGN POSITIONAL VERTIGO Follow up: With: Address: When: Physical therapy In 1 day 09/28/2015 With: Address: When: HUNTER SEQUEIRA [address] [id number] Business (1) Within As Needed Source: Voice[employer] Document Id: [id number] ICULTURIST documented in this encounter Medications at Time [...] (COSOPT OPHT) into the right eye daily. meclizine (for_ANTIVERT) Take by mouth 3 0 201405/12/2019 12.5 mg tablet (three) times a day as needed. documented as of this encounter ED Notes Cathie Kay R.N. - 09/27/2015 12:15 PM CST ED Disposition Summary ED Disposition Summary Entered On: 09/27/2015 12:15 SILVICULTURIST Performed On: 09/27/2015 12:15 SILVICULTURIST by CATHIE KAY RN ED Disposition Summary Accompanied By : Spouse Mode of Discharge : Ambulatory Transportation : Private vehicle Discharge From ED With : Home Med List Printed Discharge Instructions Given to Patient : Yes Patient Status at Discharge from ED : Improved CATHIE KAY RN - 09/27/2015 12:15 SILVICULTURIST Source: [employer] Document Id: [id number] SILVICULTURIST!8 ICULTURIST Cathie Kay R.N. - 09/27/2015 12:15 PM CST ED Pain Assessment ED Pain Assessment Entered On: 09/27/2015 12:15 SILVICULTURIST Performed On: 09/27/2015 12:15 SILVICULTURIST by CATHIE KAY RN Pain Assessment Pain Symptoms : No CATHIE KAY RN - 09/27/2015 12:15 SILVICULTURIST Source: [employer] Document Id: [id number] SILVICULTURIST!3 ICULTURIST Saulo Zamorano M.D. - 09/27/2015 11:22 AM CST Vertigo - recurrent Patient: KATHRYN LEON Age: 80 years Sex: Female : 1935 Author: SAULO ZAMORANO III, MD Attachments: None Associated Diagnosis: Vertigo Benign Positional (BPV) Jeff Basic Information Time seen: Immediately upon arrival. History source: Patient. Arrival mode: Private vehicle. History limitation: None. Additional information: Chief Complaint from Nursing Triage Note : Chief Complaint Description 09/27/2015 10:56 SILVICULTURIST Chief Complaint Description 80 year old female admitted to ER wt reoccuring vertig. States had vertigo 6 months ago and the symptoms are the same . History of Present Illness The patient presents with dizziness. The onset was 3 days ago. The character of symptoms is room spinning sensation. The degree at onset was moderate. The degree at maximum was severe. The degree at present is severe. Risk factors consist of history of BPPV. The patient's dominant hand is the right hand. Prior episodes: occasional. Therapy today: none. Associated symptoms: none. Review of Systems Constitutional symptoms: Negative except as documented in HPI. Skin symptoms: Negative except as documented in HPI. Eye symptoms: Negative except as documented in HPI. ENMT symptoms: Negative except as documented in HPI. Respiratory symptoms: Negative except as documented in HPI. Cardiovascular symptoms: Negative except as documented in HPI. Gastrointestinal symptoms: Negative except as documented in HPI. Genitourinary symptoms: Negative except as documented in HPI. Musculoskeletal symptoms: Negative except as documented in HPI. Neurologic symptoms: Negative except as documented in HPI. Psychiatric symptoms: Negative except as documented in [...] topical- No reactions were documented.. Medications: (Selected) Prescriptions Prescribed Rochelle-D 12 Hour 60 mg-120 mg oral tablet, extended release: 1 tab(s), PO, 2xDay, 180 tab(s) Bactroban 2% topical ointment: 1 tj, Topical, 3xDay, 22 gm, 0 Refill(s) Flonase 0.05 mg/inh nasal spray: 2 spray(s), Nostrils(Both), Daily, 3 each, 1 Refill(s) Vagifem 10 mcg vaginal tablet: 10 mcg, Vaginal, 2xWeek, Member No [id number], 26 tab(s) gabapentin 300 mg oral capsule: 900 mg, 3 cap(s), PO, Daily, 270 cap(s), 1 Refill(s) ibuprofen 600 mg oral tablet: See Instructions, 1 tab(s) PO three times per day with food as needed,60 each, PRN: Pain meclizine 12.5 mg oral tablet: 1-2 tab(s), PO, 3xDay, 60 tab(s), PRN: Dizziness omeprazole 40 mg oral delayed release capsule: 40 mg, 1 cap(s), PO, 2xDay, 30-60 min prior to meals,90 cap(s), 2 Refill(s) Documented Medications Documented Citracal: 1tab, 2xDay Cosopt ophthalmic solution: 1 drop(s), Daily, in the right eye only Multiple Vitamins oral tablet: 1 tab(s), PO, Daily, 30 tab(s) Restasis: one drop, Eyes(Both), q12hr Vitamin B-12: 1,000 mcg, PO, Daily ferrous sulfate 325 mg (65 mg elemental iron) oral tablet: 325 mg, 1 tab(s), PO, Daily. Past Medical/ Family/ Social History Medical history: Resolved Glaucoma NOS (365.9): Resolved.. Surgical history: Upper gastrointestinal endoscopy (SNOMED CT 429144137) performed by GERHARD ROMAN MD on 11/30/2013 at 78 Years. MAMMOGRAM (CPT4 G0202) on 08/25/2013 at 78 Years. Comments: 10/31/2013 11:24 - SUJATHA MAR LPN [place] Normal may resume in [place] Mammogram (SNOMED CT 428900614) on 07/15/2012 at 77 Years. Diagnostic colonoscopy (SNOMED CT 478080991) performed by SAGRARIO ONLAND MD on 03/25/2011 at 76Years. Comments: 03/25/2011 08:49 - SAGRARIO NOLAND MD Sigmoid diverticulosis--not inflamed. Dual-energy X-ray absorptiometry (DXA), bone density study, 1 or more sites; axial skeleton (eg, hips, pelvis, spine).. (CPT4 70115) in the week of 08/14/2010 at 75 Years. Comments: 10/25/2010 09:40 - CARMELO RHODES Hx: [id number] - BONE DEN HIPS/PEL/SP 08/01/2013 19:17 - Contributor source changed to PowerChart. Mammogram (SNOMED CT 178357223) performed by ALBANIA VARMA RN, ESTHETICS INSTRUCTOR on 07/22/2010 at 75 Years. Mammogram (SNOMED CT 440402441) on 06/28/2010 at 75 Years. Laminectomy approach to lumbar spine (SNOMED CT 661066568) in 2008 at 74 Years. Colonoscopy (SNOMED CT 001174578) on 02/01/2009 at 73 Years. Extracapsular cataract removal with insertion of intraocular lens prosthesis (1 stage procedure), manual or mechanical technique (eg, irrigation and aspiration or phacoemulsification) (CPT4 71690) on 02/26/2007 at 72 Years. Comments: 10/25/2010 20:26 - PATTI ALMENDAREZ PAYROLL SPECIALIST left HC COLONOSCOPY W SNARE REMOVAL TUMOR/POLYP/LESION - 12/31/06 on 12/31/2006 at 71 Years. HC ANTER COLPORRHAPHY,BLAD/VAGINA - 03/22/01 - ANTERIOR POSTERIOR REPAIR on 03/22/2001 at 66 Years. HC FLEX SIGMOIDOSCOPY W/WO JAMES SPEC BY BRUSH/WASH - on 06/14/1999 at 64 Years. Repair of cystocele (SNOMED CT 444549007) in 1994 at 60 Years. Reduction mammaplasty (CPT4 64131) on 02/26/1982 at 47 Years. Hysterectomy (SNOMED CT 755852072) on 11/04/1966 at 31 Years. Comments: 03/25/2011 08:51 - SAGRARIO NOLAND MD Vaginal Hemorrhoidectomy, internal and external, single column/group; (CPT4 83857) on 02/26/1959 at 24 Years. C GLAUCOMA SURG,TRABECU AB EXTERNO on . HC HEMORRHOIDECTOMY W BANDING/LIGATION on . HC REMV CATARACT EXTRACAP,INSERT LENS on . HC REMOVAL OF TONSILS,<12 Y/O - Tonsillectomy < age 14 on . C VAGINAL HYSTERECTOMY - AGE 33 on . HC REDUCTION OF LARGE BREAST - 1975 - BILATERAL on .. Family history: Kidney Brother Glaucoma Father Down syndrome Brother Celiac disease Brother . Social history: Alcohol use: Denies, Tobacco use: Denies, Drug use: Denies, Occupation: Retired. 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 Physical Examination Vital Signs: Vital Signs 09/27/2015 10:56 SILVICULTURIST Temperature Core 36.5 DegC Peripheral Pulse Rate 66 /min Respiratory Rate 18 /min SpO2 98 % Systolic Blood Pressure 137 mmHg Diastolic Blood Pressure 78 mmHg Mean Arterial Pressure 98 mmHg BP Location Left upper , Measurements 09/27/2015 10:56 SILVICULTURIST Height 162 cm Height Source Stated Dosing Weight 77.00 kg NA Estimated Weight 77 kg . General: Alert and mild distress. Skin: Warm, dry and pink. Head: Normocephalic and atraumatic. Neck: Supple, trachea midline, no tenderness, no JVD and no carotid bruit. Eye: Pupils are equal, round and reactive to light and intact accommodation. Ears, nose, mouth and throat: Tympanic membranes clear, oral mucosa moist and no pharyngeal erythemaor exudate. Cardiovascular: Regular rate and rhythm, No murmur and Normal peripheral perfusion. Respiratory: Lungs are clear to auscultation, respirations are non-labored, breath sounds are equal and Symmetrical chest wall expansion. Neurological: Cranial nerves II - XII: nystagmus bilaterally. Medical Decision Making Differential Diagnosis:BPPV. Documents reviewed:Prior records. OrdersLaunch Orders Physical Therapy: Physical Therapy Evaluate & Treat (Order Processing): 09/27/2015 12:00 SILVICULTURIST, BPPV. Impression and Plan Diagnosis Vertigo Benign Positional (BPV) Ejff (Discharge, Medical) Plan Condition: Improved. Disposition: Medically cleared, Discharged: to home. Patient was given the following educational materials: BENIGN POSITIONAL VERTIGO. Follow up with: Physical therapy In 1 day 09/28/2015; HUNTER SEQUEIRA Within As Needed. Counseled: Patient, Discussed results and plan with patient in detail and they expressed understanding and agreement.. Orders: Launch Orders Patient Care: Discharge ED Patient (Order Processing): 09/27/2015 12:01 SILVICULTURIST, Once. Electronically Signed By: SAULO ZAMORANO III, MD On: 09/27/2015 12:01 PM Modified by and Electronically Signed by: SAULO ZAMORANO III, MD On: 09/27/2015 12:01 PM Source: [facility] Reset TherapeuticsCHART Document Id: [id number]} ICULTURIST Cathie Kay RChelsey - 09/27/2015 10:59 AM CST ED Primary Assessment Document Has Been Updated ED Primary Assessment Entered On: 09/27/2015 11:01 SILVICULTURIST Performed On: 09/27/2015 10:59 SILVICULTURIST by CATHIE KAY RN Reason For Visit (As Of: 09/27/2015 11:01:19 SILVICULTURIST) Problems(Active) Abnormal Liver Function Test (ICD-9-CM :790.6 ) Name of Problem: Abnormal Liver Function Test ; Onset Date: 10/05/2014 ; Recorder: ALBANIA VARMA RN, ESTHETICS INSTRUCTOR; Confirmation: Confirmed ; Classification: Medical ; Code: 790.6 ; Contributor System: PowerChart ; Last Updated: 11/17/2014 12:51 SILVICULTURIST ; Life Cycle Status: Active ; Responsible Provider: ALBANIA VARMA RN, CNP; Vocabulary: ICD-9-CM Allergic rhinitis, unspecified (ICD-9-CM [...] System: PowerChart ; Last Updated: 10/25/2010 20:18 SILVICULTURIST ; Life Cycle Date: 10/25/2010 ; Life Cycle Status: Active ; Responsible Provider: PATTI ALMENDAREZ LPN; Vocabulary: ICD-9-CM Atrophic vaginitis (ICD-9-CM :627.3 ) Name of Problem: Atrophic vaginitis ; Onset Date: 07/27/2012 ;Recorder: ALBANIA VARMA RN, CNP; Confirmation: Confirmed ; Classification: Medical ; Code: 627.3 ; Last Updated: 07/27/2012 11:32 SILVICULTURIST ; Life Cycle Status: Active ; Responsible Provider: ALBANIA VARMA CNP; Vocabulary: ICD-9-CM Bursitis Hip/Trochanertic (ICD-9-CM :726.5 ) Name of Problem: Bursitis Hip/Trochanertic ; Onset Date: 10/20/2011 ; Recorder: ALBANIA VARMA RN, CNP; Confirmation: Confirmed ; Classification: Medical ; Code: 726.5 ; Last Updated: 10/20/2011 9:54 SILVICULTURIST ; Life Cycle Status: Active ; Responsible Provider: ALBANIA VARMA RN, CNP; Vocabulary: ICD-9-CM Cataract NOS (ICD-9-CM :366.9 ) Name of Problem: Cataract NOS ; Onset Date: 1991 ; Recorder: PATTI ALMENDAREZ LPN; Confirmation: Confirmed ; Classification: Nursing ; Code: 366.9 ; Contributor System: Relationship Science ; Last Updated: 01/21/2011 10:04 CDT ; Life Cycle Date: 10/25/2010 ; Life Cycle Status: Active ; Responsible Provider: PATTI ALMENDAREZ LPN; Vocabulary: ICD-9-CM ; Comments: 12/31/2010 12:11 - PATTI ALMENDAREZ LPN date unknown Celiac Disease (ICD-9-CM :579.0 ) Name of Problem: Celiac Disease ; Onset Date: 02/26/2007 ; Recorder: PATTI ALMENDAREZ LPN; Confirmation: Confirmed ; Classification: Nursing ; Code: 579.0 ; ContributorSystem: [email or web address] ; Last Updated: 10/25/2010 20:20 SILVICULTURIST ; Life Cycle Date: 10/25/2010 ; Life Cycle Status: Active ; Responsible Provider: PATTI ALMENDAREZ LPN; Vocabulary: ICD-9-CM Chest wall pain* (ICD-9-CM :786.52 ) Name of Problem: Chest wall pain* ; Onset Date: 09/05/2013 ; Recorder: ALBANIA VARMA RN, CNP; Confirmation: Confirmed ; Classification: Medical ; Code: 786.52 ; Last Updated: 02/01/2014 16:15 CDT ; Life Cycle Status: Active ; Responsible Provider: ALBANIA VARMA RN, CNP; Vocabulary: ICD-9-CM 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 ) Name of Problem: Disease Vocal Cord ; Recorder: ALBANIA VARMA RN, CNP; Confirmation: Confirmed ; Classification: Medical ; Code: J38.3 ; Contributor System: [email or web address] ; Last Updated: 07/10/2015 10:30 CDT ; Life Cycle Status: Active ; Responsible Provider: ALBANIA VARMA RN, CNP; Vocabulary: ICD-10-CM Diverticulitis of large intestine (ICD-9-CM :562.11 ) Name of Problem: Diverticulitis of large intestine ; Onset Date: 10/28/2010 ; Recorder: KOJO, ALBANIA L RN, ESTHETICS INSTRUCTOR; Confirmation: Confirmed ; Classification: Medical ; Code: 562.11 ; Last Updated: 10/28/2010 16:30 SILVICULTURIST ; Life Cycle Status: Active ; Respo nsible Provider: ALBANIA VARMA RN, ESTHETICS INSTRUCTOR; Vocabulary: ICD-9-CM Eye disorder (ICD-9-CM :379.8 ) Name of Problem: Eye disorder ; Recorder: TAMMY ACEVES MD; Confirmation: Confirmed ; Classification: UPDATE NEEDED ; Code: 379.8 ; Contributor System: PowerChart ; Last Updated: 01/05/2012 19:00 CDT ; Life Cycle Date: 01/05/2012 ; Life Cycle Status: Active ; Responsible Provider: TAMMY ACEVES MD; Vocabulary: ICD-9-CM ; Comments: 01/21/2012 9:37 - MATTHEW BORDEN LPN date unknown Fracture of rib (SNOMED CT :49634987 ) Name of Problem: Fracture of rib ; Onset Date: 05/12/2013 ; Recorder: SUJATHA MAR LPN; Confirmation: Confirmed ; Classification: Nursing ; Code: 07116802 ;Contributor System: PowerChart ; Last Updated: 06/07/2013 [...] Contributor System: PowerChart ; Last Updated: 01/21/2011 10:05 CDT ; Life Cycle Date: 10/25/2010 ; Life Cycle Status: Active ; Responsible Provider: PATTI ALMENDAREZ LPN; Vocabulary: ICD-9-CM ; Comments: 12/31/2010 12:11 - PATTI ALMENDAREZ LPN date unknown Glaucoma (SNOMED CT :64981863 ) Name of Problem: Glaucoma ; Recorder: TAMMY ACEVES MD; Confirmation: Confirmed ; Classification: Medical ; Code: 24117528 ; Contributor System: PowerChart ; Last Updated: 01/05/2012 18:52 CDT ; Life Cycle Date: 01/05/2012 ; Life Cycle Status: Active ; ResponsibleProvider: TAMMY ACEVES MD; Vocabulary: SNOMED CT ; Comments: 01/21/2012 9:37 - MATTHEW BORDEN LPN date unknown Hernia, hiatal (ICD-9-CM :553.3 ) Name of Problem: Hernia, hiatal ; Onset Date: 10/31/2013 ; Recorder: ALBANIA VARMA RN, CNP; Confirmation: Confirmed ; Classification: Medical ; Code: 553.3 ; Last Updated: 10/31/2013 11:53 SILVICULTURIST ; Life Cycle Status: Active ; Responsible Provider: ALBANIA VARMA RN, CNP; Vocabulary: ICD-9-CM 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 (ICD-9-CM :722.10 ) Name of Problem: 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 ; Recorder: ALBANIA VARMA RN, CNP; Confirmation: Confirmed ; Classification: Medical ; Code: 722.10 ; Contributor System: Relationship Science ; Last Updated: 11/04/2010 9:49 SILVICULTURIST ; Life Cycle Date: 11/04/2010 ; Life Cycle Status: Active ; Responsible Provider: ALBANIA VARMA RN, CNP; Vocabulary: ICD-9-CM ; Comments: 12/31/201012:11 - PATTI ALMEDNAREZ LPN date unknown Osteopenia (ICD-9-CM :733.90 ) Name of Problem: Osteopenia ; Onset Date: 02/26/1987 ; Recorder: PATTI ALMENDAREZ LPN; Confirmation: Confirmed ; Classification: Nursing ; Code: 733.90 ; Contributor System: PowerChart ; Last Updated: 10/25/2010 20:19 SILVICULTURIST ; Life Cycle Date: 10/25/2010 ; Life Cycle Status: Active ; Responsible Provider: PATTI ALMENDAREZ LPN; Vocabulary: ICD-9-CM Diagnoses(Active) Vertigo - recurrent Date: 09/27/2015 ; Diagnosis Type: Reason For Visit ; Confirmation: Complaint of; Clinical Dx: Vertigo - recurrent ; Classification: Medical ; Clinical Service: Emergency medicine ; Code: PNED ; Probability: 0 ; Diagnosis Code: [id number] Triage Chief Complaint Description : see triage note Mode of Arrival ED : Private vehicle Track : Medical Languages : Iraqi Treatments Prior to Arrival : None Is Patient Female and 13-50 no hysterectomy : CATHIE Arredondo RN - 09/27/2015 10:59 SILVICULTURIST Pain Assessment Pain Symptoms : No CATHIE KAY RN - 09/27/2015 10:59 SILVICULTURIST Respiratory Airway : Patent Respirations : Unlabored Respiratory Pattern : Regular CATHIE KAY RN - 09/27/2015 10:59 SILVICULTURIST Cardiovascular Heart Rhythm : Regular Skin Color : Normal for ethnicity Skin Description : Dry Skin Temperature : Warm CATHIE KAY RN - 09/27/2015 10:59 SILVICULTURIST Neurological Last Well Time Known : Yes Last Known Well Time : 09/27/2015 9:15 SILVICULTURIST Level of Consciousness : Alert Orientation : Oriented x 3 Characteristics of Speech : Appropriate for age Neuro Patient Stated Symptoms : Dizziness Gait : Unable to assess Loss of Consciousness : CATHIE Arredondo RN - 09/27/2015 10:59 SILVICULTURIST ED Psychosocial Affect/Behavior : Calm Domestic Abuse Concerns : None Behavioral Health Screen/Safety Assmt : No CATHIE KAY RN - 09/27/2015 10:59 SILVICULTURIST Gastrointestinal Nutrition ED : Adequate CATHIE KAY RN - 09/27/2015 10:59 SILVICULTURIST Musculoskeletal Fall Prevention Education Provided : CATHIE WYATT RN - 09/27/2015 10:59 SILVICULTURIST Social Habits Exposure to Tobacco Smoke : Care provider denies smoking in home, Other: never Smoking Status : Never smoker Tobacco 2A : No Tobacco Use/Currently Using : No Tobacco Use/Last 30 Days : No Tobacco Use/Last 12 months : No CATHIE KAY RN - 09/27/2015 10:59 SILVICULTURIST Alcohol Use Grid Alcohol Use : Yes Type : Liquor Frequency : Occasionally CATHIE KAY RN - 09/27/2015 10:59 SILVICULTURIST Recreational Drug Use Grid Drug Use : None CATHIE KAY RN - 09/27/2015 10:59 SILVICULTURIST Source: [facility] POWERCHART Document Id: [id number] SILVICULTURIST!51 ICULTURIST Cathie Kay R.N. - 09/27/2015 10:56 AM CST ED Triage Assessment Document Has Been Updated ED Triage Assessment Entered On: 09/27/2015 10:59 SILVICULTURIST Performed On: 09/27/2015 10:56 SILVICULTURIST by CATHIE KAY RN Reason For Visit (As Of: 09/27/2015 10:59:39 SILVICULTURIST) Problems(Active) Abnormal Liver Function Test (ICD-9-CM :790.6 ) Name of Problem: Abnormal Liver Function Test ; Onset Date: 10/05/2014 ; Recorder: ALBANIA VARMA RN, CNP; Confirmation: Confirmed ; Classification: Medical ; Code: 790.6 ; Contributor System: PowerChart ; Last Updated: 11/17/2014 12:51 SILVICULTURIST ; Life Cycle Status: Active ; Responsible Provider: ALBANIA VARMA RN, CNP; Vocabulary: ICD-9-CM Allergic rhinitis, unspecified (ICD-9-CM [...] System: PowerChart ; Last Updated: 10/25/2010 20:18 SILVICULTURIST ; Life Cycle Date: 10/25/2010 ; Life Cycle Status: Active ; Responsible Provider: PATTI ALMENDAREZ LPN; Vocabulary: ICD-9-CM Atrophic vaginitis (ICD-9-CM :627.3 ) Name of Problem: Atrophic vaginitis ; Onset Date: 07/27/2012 ;Recorder: ALBANIA VARMA RN, CNP; Confirmation: Confirmed ; Classification: Medical ; Code: 627.3 ; Last Updated: 07/27/2012 11:32 SILVICULTURIST ; Life Cycle Status: Active ; Responsible Provider: ALBANIA VARMA CNP; Vocabulary: ICD-9-CM Bursitis Hip/Trochanertic (ICD-9-CM :726.5 ) Name of Problem: Bursitis Hip/Trochanertic ; Onset Date: 10/20/2011 ; Recorder: ALBANIA VARMA RN, CNP; Confirmation: Confirmed ; Classification: Medical ; Code: 726.5 ; Last Updated: 10/20/2011 9:54 SILVICULTURIST ; Life Cycle Status: Active ; Responsible Provider: ALBANIA VARMA RN, CNP; Vocabulary: ICD-9-CM Cataract NOS (ICD-9-CM :366.9 ) Name of Problem: Cataract NOS ; Onset Date: 1991 ; Recorder: PATTI ALMENDAREZ LPN; Confirmation: Confirmed ; Classification: Nursing ; Code: 366.9 ; Contributor System: Relationship Science ; Last Updated: 01/21/2011 10:04 CDT ; Life Cycle Date: 10/25/2010 ; Life Cycle Status: Active ; Responsible Provider: PATTI ALMENDAREZ LPN; Vocabulary: ICD-9-CM ; Comments: 12/31/2010 12:11 - PATTI ALMENDAREZ LPN date unknown Celiac Disease (ICD-9-CM :579.0 ) Name of Problem: Celiac Disease ; Onset Date: 02/26/2007 ; Recorder: PATTI ALMENDAREZ LPN; Confirmation: Confirmed ; Classification: Nursing ; Code: 579.0 ; ContributorSystem: [email or web address] ; Last Updated: 10/25/2010 20:20 SILVICULTURIST ; Life Cycle Date: 10/25/2010 ; Life Cycle Status: Active ; Responsible Provider: PATTI ALMENDAREZ LPN; Vocabulary: ICD-9-CM Chest wall pain* (ICD-9-CM :786.52 ) Name of Problem: Chest wall pain* ; Onset Date: 09/05/2013 ; Recorder: ALBANIA VARMA RN, CNP; Confirmation: Confirmed ; Classification: Medical ; Code: 786.52 ; Last Updated: 02/01/2014 16:15 CDT ; Life Cycle Status: Active ; Responsible Provider: ALBANIA VARMA RN, CNP; Vocabulary: ICD-9-CM 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 ) Name of Problem: Disease Vocal Cord ; Recorder: ALBANIA VARMA RN, CNP; Confirmation: Confirmed ; Classification: Medical ; Code: J38.3 ; Contributor System: Relationship Science ; Last Updated: 07/10/2015 10:30 CDT ; Life Cycle Status: Active ; Responsible Provider: ALBANIA VARMA RN, CNP; Vocabulary: ICD-10-CM Diverticulitis of large intestine (ICD-9-CM :562.11 ) Name of Problem: Diverticulitis of large intestine ; Onset Date: 10/28/2010 ; Recorder: ALBANIA VARMA RN, CNP; Confirmation: Confirmed ; Classification: Medical ; Code: 562.11 ; Last Updated: 10/28/2010 16:30 SILVICULTURIST ; Life Cycle Status: Active ; Respo nsible Provider: ALBANIA VARMA RN, CNP; Vocabulary: ICD-9-CM Eye disorder (ICD-9-CM :379.8 ) Name of Problem: Eye disorder ; Recorder: TAMMY ACEVES MD; Confirmation: Confirmed ; Classification: UPDATE NEEDED ; Code: 379.8 ; Contributor System: [email or web address] ; Last Updated: 01/05/2012 19:00 CDT ; Life Cycle Date: 01/05/2012 ; Life Cycle Status: Active ; Responsible Provider: TAMMY ACEVES MD; Vocabulary: ICD-9-CM ; Comments: 01/21/2012 9:37 - MATTHEW BORDEN LPN date unknown Fracture of rib (SNOMED CT :93977789 ) Name of Problem: Fracture of rib ; Onset Date: 05/12/2013 ; Recorder: SUJATHA MAR LPN; Confirmation: Confirmed ; Classification: Nursing ; Code: 61327343 ;Contributor System: [email or web address] ; Last Updated: 06/07/2013 8:10 CDT ; Life Cycle Date: 06/07/2013 ; Life Cycle Status: Active ; Responsible Provider: SUJATHA MAR LPN; Vocabulary: SNOMED CT ; Comments: 06/07/2013 8:10 - SUJATHA MAR LPN left side Glaucoma (ICD-9-CM :365.44 ) Name of Problem: Glaucoma ; Onset Date: 1986 ; Recorder: ERICKSON, PATTI L PAYROLL SPECIALIST; Confirmation: Confirmed ; Classification: Nursing ; Code: 365.44 ; Contributor System: PowerChart ; Last Updated: 01/21/2011 10:05 CDT ; Life Cycle Date: 10/25/2010 ; Life Cycle Status: Active ; Responsible Provider: PATTI ALMENDAREZ LPN; Vocabulary: ICD-9-CM ; Comments: 12/31/2010 12:11 - ERICKSONWILEYI L PAYROLL SPECIALIST date unknown Glaucoma (SNOMED CT :81468100 ) Name of Problem: Glaucoma ; Recorder: TAMMY ACEVES MD; Confirmation: Confirmed ; Classification: Medical ; Code: 80975824 ; Contributor System: PowerChart ; Last Updated: 01/05/2012 18:52 CDT ; Life Cycle Date: 01/05/2012 ; Life Cycle Status: Active ; ResponsibleProvider: TAMMY ACEVES MD; Vocabulary: SNOMED CT ; Comments: 01/21/2012 9:37 - MATTHEW BORDEN PAYROLL SPECIALIST date unknown Hernia, hiatal (ICD-9-CM :553.3 ) Name of Problem: Hernia, hiatal ; Onset Date: 10/31/2013 ; Recorder: ALBANIA VARMA RN, CNP; Confirmation: Confirmed ; Classification: Medical ; Code: 553.3 ; Last Updated: 10/31/2013 11:53 SILVICULTURIST ; Life Cycle Status: Active ; Responsible Provider: ALBANIA VARMA RN, CNP; Vocabulary: ICD-9-CM 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 (ICD-9-CM :722.10 ) Name of Problem: 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 ; Recorder: ALBANIA VARMA RN, CNP; Confirmation: Confirmed ; Classification: Medical ; Code: 722.10 ; Contributor System: PowerChart ; Last Updated: 11/04/2010 9:49 SILVICULTURIST ; Life Cycle Date: 11/04/2010 ; Life Cycle Status: Active ; Responsible Provider: ALBANIA VARMA RN, CNP; Vocabulary: ICD-9-CM ; Comments: 12/31/201012:11 - PATTI ALMENDAREZ PAYROLL SPECIALIST date unknown Osteopenia (ICD-9-CM :733.90 ) Name of Problem: Osteopenia ; Onset Date: 02/26/1987 ; Recorder: PATTI ALMENDAREZ LPN; Confirmation: Confirmed ; Classification: Nursing ; Code: 733.90 ; Contributor System: [email or web address] ; Last Updated: 10/25/2010 20:19 SILVICULTURIST ; Life Cycle Date: 10/25/2010 ; Life Cycle Status: Active ; Responsible Provider: PATTI ALMENDAREZ LPN; Vocabulary: ICD-9-CM Diagnoses(Active) Vertigo - recurrent Date: 09/27/2015 ; Diagnosis Type: Reason For Visit ; Confirmation: Complaint of; Clinical Dx: Vertigo - recurrent ; Classification: Medical ; Clinical Service: Emergency medicine ; Code: PNED ; Probability: 0 ; Diagnosis Code: [id number] Triage Chief Complaint Description : 80 year old female admitted to ER wtih reoccuring vertig. States had vertigo 6 months ago and the symptoms are the same Information Given By : Patient Accompanied By : Spouse Mode of Arrival ED : Private vehicle Track : Medical Languages : Iraqi Vital Signs Assessed : Yes GCS Assessed : Yes Treatments Prior to Arrival : None Is Patient Female and 13-50 no hysterectomy : No CATHIE KAY RN - 09/27/2015 10:56 SILVICULTURIST Vital Signs Temperature Core : 36.5 DegC(Converted to: 97.7 DegF) Peripheral Pulse Rate : 66 /min Respiratory Rate : 18 /min Systolic Blood Pressure : 137 mmHg Diastolic Blood Pressure : 78 mmHg NIBP Mean : 98 mmHg BP Location : Left upper extremity SpO2 : 98 % Oxygen Therapy : Room air Height : 162 cm(Converted to: 5 ft 4 inch(es)) Height Source : Stated Estimated Weight : 77 kg Estimated Weight Conversion to Pounds : 169.4 lb CATHIE KAY RN - 09/27/2015 10:56 SILVICULTURIST Nabil Coma Eye Opening Response Nabil : Spontaneously Best Verbal Response Nabil : Oriented Best Motor Response Nabil : Obeys simple commands Nabil Coma Score : 15 CATHIE KAY RN - 09/27/2015 10:56 SILVICULTURIST Pain Assessment Pain Symptoms : No CATHIE KAY RN - 09/27/2015 10:56 SILVICULTURIST ED Physician Notification Time ED Physician Notification Time : 09/27/2015 10:59 SILVICULTURIST CATHIE KAY RN - 09/27/2015 10:56 SILVICULTURIST CAMI CAMI Level 1 : No CAMI Level 2 : No CAMI Level 3 : One CATHIE KAY RN - 09/27/2015 10:56 SILVICULTURIST DCP GENERIC CODE Tracking Acuity : 4 -Less Urgent Tracking Group : [facility] ED CATHIE KAY RN - 09/27/2015 10:56 SILVICULTURIST Allergy (As Of: 09/27/2015 10:59:39 SILVICULTURIST) Allergies (Active) Glutens Estimated Onset Date: Unspecified ; Created By: PATTI ALMENDAREZ LPN; Reaction Status: Active; Category: Drug ; Substance: Glutens ; Type: Allergy ; Updated By: PATTI ALMENDAREZ LPN; Reviewed Date: 09/27/2015 10:59 SILVICULTURIST miconazole topical Comments: Comment 1: MICONAZOLE NITRATE ; Created By: Contributor_system, [facility]_ALRG_SYS; Reaction Status: Active ; Category: Drug ; Substance: miconazole topical ; Type: Unknown ;Updated By: Contributor_system, [facility]_AL[facility]_SYS; Reviewed Date: 09/27/2015 10:59 SILVICULTURIST Nuts Estimated Onset Date: Unspecified ; Created By: PATTI ALMENDAREZ LPN; Reaction Status: Active ; Category: Food ; Substance: Nuts ; Type: Allergy ; Updated By: PATTI ALMENDAREZ LPN; Reviewed Date: 09/27/2015 10:59 SILVICULTURIST ID Screen Drug Resistant Organism : No Travel Within Last 21 Days : No Contact with someone with Ebola : No CATHIE KAY RN - 09/27/2015 10:56 SILVICULTURIST Immunizations Immunizations Current : Yes CATHIE KAY RN - 09/27/2015 10:56 SILVICULTURIST Source: [facility] POWERCHART Document Id: [id number] SILVICULTURIST!48 ICULTURIST documented in this encounter Miscellaneous Notes Miscellaneous - Cathie Kay R.N. - 09/27/2015 12:15 PM CST Valuables/Belongings Valuables/Belongings Entered On: 09/27/2015 12:16 SILVICULTURIST Performed On: 09/27/2015 12:15 SILVICULTURIST by CATHIE KAY RN Valuables/Belongings Belongings Sent Home With : patient CATHIE KAY RN - 09/27/2015 12:15 SILVICULTURIST [facility] Document Id: [id number] SILVICULTURIST!3 ICULTURIST Miscellaneous - Conversion, Historical Provider Ser - 09/27/2015 12:15 PM SILVICULTURIST Coding Summary-Paper Based CODING DATE: 10/08/2015 FINAL [place] [facility] STATUS: * Discharged to Home or Self Care PAYOR: Medicare ADMIT DX: R42 Dizziness and giddiness REASON FOR VISIT DX: R42 Dizziness and giddiness FINAL DX: PRINCIPAL: H81.13 Benign paroxysmal vertigo, bilateral SECONDARY: PROCEDURES DOCTOR NAME DATE NOTE: The code number assigned matches the documented diagnosis and / or procedure in the patient's chart. However, the narrative phrase printed from the coding software may appear abbreviated, or result in slightly different terminology. Coded By: PRERNA RODNEY Date Saved: 10/08/2015 06:57 am [facility] Document Id: [id number] Miscellaneous - Cathie Kay, R.N. - 09/27/2015 10:41 AM CST Facility Charge Ticket 2.0 11.0 DX Facility Charge Ticket 2.0 11.0 DX Entered On: 09/27/2015 12:16 SILVICULTURIST Performed On: 09/27/2015 10:41 SILVICULTURIST by CATHIE KAY RN Facility Charge Ticket 2.0 11.0 DX ED Other Charges : Standard ED Encounter TVL Level Translated RTF : Vertigo - recurrent TVL:3 TVL Level for Facility Charge Ticket : Level 3 Arrival Mode Calc : 1 Mode of Arrival ED : Private vehicle [place] Mode of Arrival Interpreted : Standard [place] Process Management : None [place] Order Management : None 30 Minutes Critical Care : No Nursing Notes RTF : Triage Forms ED Triage Assessment,09/27/15 10:56,CATHIE KAY RN Nursing Notes ED Primary Assessment,09/27/15 10:59,CATHIE KAY DELIVERY RN Pain Assessment,09/27/15 12:15,CATHIE KAY RN [place] Nursing Assessment : Triage and 1-2 nursing assessments [place] Disposition : Discharge Disposition RTF : discharge [place] Total Points with Diagnosis Control : 5 [place] Visit Level : 66892 Level 3 Treatments Prior to Arrival : None CATHIE KAY RN - 09/27/2015 12:16 SILVICULTURIST [facility] Document Id: [id number] SILVICULTURIST!18 ICULTURIST documented in this encounter Plan of Treatment Not on filedocumented as of this encounter Visit Diagnoses Not on filedocumented in this encounter
--- OUTSIDE RECORDS SUMMARY | 2022-05-06 13:11 | XMS_ITS | Encounter Summary ---
:1935 Author Organization [facility] Address [address] [place] [id number] Care Team Providers Name Role Phone Unavailable Primary Care Provider Unavailable Encounter Details Date Type Department Care Team Description 03/15/2015 Hospital Encounter HX [facility] ENT Jamie Camacho M.D. [address] [place], [place] [phone] (Wo rk) Social History Tobacco Use Types Packs/Day Years Used Date Smoking Tobacco: Never Assessed Sex Assigned at Date Recorded Not on file documented as of this encounter Last Filed Vital Signs Vital Sign Reading Time Taken Comments Blood Pressure 122/70 03/15/2015 10:43 AM CDT Pulse 69 03/15/2015 10:43 AM CDT Temperature - - Respiratory Rate 16 03/15/2015 10:43 AM CDT Oxygen Saturation - - Inhaled [...] documented as of this encounter Consult Notes Jamie Camacho M.D. - 03/15/2015 10:11 AM CDT [id number] Ms. Leon is a pleasant 80-year-old woman. CHIEF COMPLAINT/REASON FOR VISIT Voice/hoarseness. REFERRAL SOURCE Consult at the request of Harman Aldrich CNP, [facility]. Antonia Aldrich CNP, letter March 06, 2015, reviewed and appreciated. This reflects the patient's history of almost 2-month history of what sounds like fairly sudden onset hoarseness. Patient estimates mild to moderate severity. People comment she does not sound the same. It seemed to start followinga sinus infection. She was on vacation at that time in [place] and was, so tired and felt crappy and could hardly stay awake. She saw an Urgent Care provider there who prescribed antibiotics renee 3-day course of steroids. She felt better for a couple of days but then lousy again. Those othersymptoms have resolved, but she is left with hoarseness. She is on her 3rd course of antibiotics with 8 of 10 days completed. Denies any associated ear pain, sore throat, or dysphagia. ADULT NEW PATIENT QUESTIONNAIRE: The NPQ is filled out by the patient and is reviewed including 10-system review of systems, past medical history, surgical history, social history, and family history. PHYSICAL EXAMINATION GENERAL: Appears well. OTOSCOPIC: Normal, healthy mobile TMs. NOSE: Patent, healthy mucosa. ORAL: Normal. OROPHARYNX: Normal. MIRROR EXAM: Nasopharynx/Hypopharynx/Larynx: Not tolerated due to gag reflex. VOICE: Normal. NECK: No lymphadenopathy, no masses. THYROID: Not palpably enlarged. SALIVARY GLANDS: Normal. PROCEDURE Flexible laryngoscopy, 2.4 mm: Nasopharynx and hypopharynx unremarkable. 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 No focal lesions are noted. The cords at times are fully visible without apparentlesion. The right cord shows normal mobility. With the left arytenoid prolapse, left vocal cord mobility is difficult to confidently define; however, there is, I believe, at least reduced mobility if not paralysis. IMPRESSION/REPORT/PLAN 1. Hoarseness - likely secondary to #2. 2. Likely reduced or absent left vocal cord mobility. I discussed the implications, likely viral etiology. However, if paralysis is confirmed, she would require a CT scan to rule out any mass lesion. Despite extended attempt, I was unable to clearly define her left vocal cord mobility today. I recommended recheck in [place] with video endoscopy. We will repeat the exam. If there remains a question, or paralysis is identified, will proceed with CT scanning. She is comfortable with this plan. The importance of followup was emphasized. She voiced understanding and agreement. Jamie Camacho M.D./farhat cc: Antonia Aldrich APRN, [facility] [address] [place] [address] Electronically Signed By: JAMIE CAMACHO MD On: 04/03/2015 07:25 AM Source: [facility] MHSDOLBEYNONRADSYS Document Id: [id number] documented in this encounter Miscellaneous Notes Miscellaneous - Jamie Camacho M.D. - 03/15/2015 11:23 AM CDT Ambulatory Patient Summary [address] [place] [id number] Visit Information Name: BRIANA LEON [facility] Number: [id number] Current Date: 03/15/2015 11:23:23 Physicians Attending Provider: JAMIE CAMACHO MD Primary Care Provider: ALBANIA VARMA RN, ADULT DAYCARE COORDINATOR BRIANA LEON has been given the following list of follow-up instructions, medication list, and patient education materials: Follow-up Instructions Your Medications Here is a list of your medications. It is important to take your medications as directed. Use a pillbox or chart to help remind you to take your medications. Please let your doctor or nurse know if you have problems taking your medications. Medication/Strength How to Take Indications/Special Instructions/Comments/Notes for Patient Medication Changes/Routing calcium citrate (Citracal) 1tab, two times a day cyanocobalamin (Vitamin B-12) 1,000 mcg, Oral, once a day cycloSPORINE ophthalmic (Restasis) one drop, Eyes(Both), every 12 hours dorzolamide-timolol ophthalmic (Cosopt ophthalmic solution) 1 Drops, once a day in the right eye only estradiol topical (Vagifem 10 mcg vaginal tablet) 10 mcg, Vaginal, 2 times a week Member No [id number] ferrous sulfate (ferrous sulfate 325 mg (65 mg elemental iron) oral tablet) 1 Tablet(s), Oral, once a day fexofenadine-pseudoephedrine (Rochelle-D 12 Hour 60 mg-120 mg oral tablet, extended release) 1 Tablet(s), Oral, two times a day Clue App [phone] fluticasone nasal (Flonase 0.05 mg/inh nasal spray) 2 [place](s), Nostrils(Both), once a day gabapentin (gabapentin 300 mg oral capsule) 3 cap, Oral, once a day ibuprofen (ibuprofen 600 mg oral tablet) See Instructions, as needed for Pain 1 tab(s) PO three times per day with food as needed levofloxacin (Levaquin) every 24 hours meclizine (meclizine 12.5 mg oral tablet) 1-2 tab(s), Oral, three times a day as needed for Dizziness multivitamin (Multiple Vitamins oral tablet) 1 Tablet(s), Oral, once a day omeprazole (omeprazole 40 mg oral delayed release capsule) 1 cap, Oral, two times a day 30-60 min prior to meals This is a CHANGE Routed to [address] [address] Stop Taking the Following Medications: Medication list as of 03-15-15 11:23 Attention: If you have any medications at home that are not on this list, DO NOT take them until youcontact your provider for clarification. Give a copy of your medication list to your primary care provider. Update your medication list any time medications or doses are changed and carry your medication list at all times in case of emergency. 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 What Is GERD? If you feel a painful burning sensation in your chest after you eat, you may have gastroesophageal reflux disease (GERD). Heartburn is a classic symptom of GERD, but you may have other symptoms as well. Note: Chest pain may also be caused by heart problems. Be sure to have all chest pain evaluated by adoctor. When You Have a Reflux Problem With GERD, the weak LES allows food and fluids to travel back, or reflux, into the esophagus. After you eat, food travels from your mouth down the esophagus to your stomach. Along the way, food passes through a one-way valve called the lower esophageal sphincter (LES), the opening to your stomach. Normally the LES opens when you swallow. It allows food to enter the stomach, then closes quickly. With GERD, the LES doesnt work normally. It allows food and stomach acid to travel back (reflux) into the esophagus. Some Common Symptoms ?? Frequent heartburn or burping ?? Sour-tasting fluid backing up into your mouth ?? Symptoms that get worse after you eat, bend over, or lie down ?? Difficulty or pain when swallowing Relieving Your Discomfort You and your health care provider can work together to find the treatment options that best relieve your symptoms. These may include lifestyle changes, medication, and possibly surgery. ?? [id number] Jannet Varela, [address] [place] [address], [place] [address]. All rights reserved. This information is not [...] if you dont have one. Go to [email or web address] and click on Create Your Account. Then, follow the directions to complete the online form. Youll be asked for your [facility] number which you can find at the top of this document. Your Goals/Additional instructions: This document has images extracted. Please consider using [employer] for all your patient education needs. Source: [facility] POWERCHART Document Id: [id number] Miscellaneous - Jamie Camacho M.D. - 03/15/2015 11:23 AM CDT Ambulatory Discharge Medication List [address] [place] [id number] Visit Information Name: BRIANA LEON [facility] Number: [id number] Visit Date: 03/15/2015 11:23:21 Attending Provider: JAMIE CAMACHO MD Primary Care Provider: ALBANIA VARMA RN, ADULT DAYCARE COORDINATOR BRIANA LEON has been given the following list of medications: Your Medications It is important to take your medications as directed. Use a pill box or chart to help remind you to take your medications. Please let your doctor or nurse know if you have problems taking your medications. Medication/Strength How to Take Indications/Special Instructions/Comments/Notes for Patient Medication Changes/Routing calcium citrate (Citracal) 1tab, two times a day cyanocobalamin (Vitamin B-12) 1,000 mcg, Oral, once a day cycloSPORINE ophthalmic (Restasis) one drop, Eyes(Both), every 12 hours dorzolamide-timolol ophthalmic (Cosopt ophthalmic solution) 1 Drops, once a day in the right eye only estradiol topical (Vagifem 10 mcg vaginal tablet) 10 mcg, Vaginal, 2 times a week Member No [id number] ferrous sulfate (ferrous sulfate 325 mg (65 mg elemental iron) oral tablet) 1 Tablet(s), Oral, once a day fexofenadine-pseudoephedrine (Rochelle-D 12 Hour 60 mg-120 mg oral tablet, extended release) 1 Tablet(s), Oral, two times a day Clue App [phone] fluticasone nasal (Flonase 0.05 mg/inh nasal spray) 2 [place](s), Nostrils(Both), once a day gabapentin (gabapentin 300 mg oral capsule) 3 cap, Oral, once a day ibuprofen (ibuprofen 600 mg oral tablet) See Instructions, as needed for Pain 1 tab(s) PO three times per day with food as needed levofloxacin (Levaquin) every 24 hours meclizine (meclizine 12.5 mg oral tablet) 1-2 tab(s), Oral, three times a day as needed for Dizziness multivitamin (Multiple Vitamins oral tablet) 1 Tablet(s), Oral, once a day omeprazole (omeprazole 40 mg oral delayed release capsule) 1 cap, Oral, two times a day 30-60 min prior to meals This is a CHANGE Routed to [address] [address] Stop Taking the Following Medications: Medication list as of 03-15-15 11:23 Attention: If you have any medications at home that are not on this list, DO NOT take them until youcontact your provider for clarification. Give a copy of your medication list to your primary care provider. Update your medication list any time medications or doses are changed and carry your medication list at all times in case of emergency. 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 Entered On: 03/15/2015 10:45 CDT Performed On: 03/15/2015 10:43 CDT by CHITRA ACEVES soc analyst Chief Complaint : hoarseness since January 16 Temperature Core : 36.6 DegC(Converted to: 97.9 DegF) Peripheral Pulse Rate : 69 /min Respiratory Rate : 16 /min Heart Rhythm : Regular Systolic Blood Pressure : 122 mmHg Diastolic Blood Pressure : 70 mmHg NIBP Mean : 87 mmHg BP Location : Left upper extremity Blood Pressure Cuff Size : Regular SpO2 : 98 % CHITRA ACEVES RN - 03/15/2015 10:43 CDT General Info Information Given By : Patient Preferred Communication Mode : Verbal Languages : Montenegrin Is Patient Female and 13-50 no hysterectomy : No CHITRA ACEVES RN - 03/15/2015 10:43 CDT Subjective Pain Symptoms : Yes CHITRA ACEVES RN - 03/15/2015 10:43 CDT Pain Scale Pain Scale Verbal 0-10 : Open CHITRA ACEVES RN - 03/15/2015 10:43 CDT Pain Pain Assessment Grid Pain 1 Location : Throat CHITRA ACEVES RN - 03/15/2015 10:43 CDT Dependent Habits Tobacco Use/Currently Using : No Exposure to Tobacco Smoke : Care provider denies smoking in home, Other: never Smoking Status : Never smoker CHITRA ACEVES RN - 03/15/2015 10:43 CDT Caffeine Use Grid Caffeine Use : Current Type : Coffee Frequency : Weekly CHITRA ACEVES RN - 03/15/2015 10:43 CDT Recreational Drug Use Grid Drug Use : None CHITRA ACEVES RN - 03/15/2015 10:43 CDT Source: [facility] [email or web address] Document Id: [id number] CDT!38 documented in this encounter Plan of Treatment Not on filedocumented as of this encounter Visit Diagnoses Not on filedocumented in this encounter
--- OUTSIDE RECORDS SUMMARY | 2022-05-06 13:11 | XMS_ITS | Encounter Summary ---
:1935 Author Organization [facility] Address [address] [place] [address] Care Team Providers Name Role Phone Unavailable Primary Care Provider Unavailable Encounter Details Date Type Department Care Team Description 10/04/2014 Hospital Encounter [facility] MRI Mary Cortez AP RN, C.N.P., D.N.P. [address] [place] [address] [phone] (Wo rk) Social History Tobacco Use [...] (COSOPT OPHT) into the right eye daily. documented as of this encounter Miscellaneous Notes Miscellaneous - Conversion, Historical Provider Ser - 10/04/2014 11:59 PM ASSISTANT COUNSEL Coding Summary-Paper Based CODING DATE: 10/10/2014 FINAL [place] [facility] STATUS: * Discharged to Home or Self Care PAYOR: Medicare ADMIT DX: 780.4 Dizziness and Giddiness REASON FOR VISIT DX: 780.4 Dizziness and Giddiness FINAL DX: PRINCIPAL: 780.4 Dizziness and Giddiness SECONDARY: PROCEDURES DOCTOR NAME DATE NOTE: The code number assigned matches the documented diagnosis and / or procedure in the patient's chart. However, the narrative phrase printed from the coding software may appear abbreviated, or result in slightly different terminology. Coded By: DIANE CONNORS Date Saved: 10/10/2014 01:44 pm Source[facility] HeartbeatsCHART Document Id: [id number] documented in this encounter Plan of Treatment Not on filedocumented as of this encounter Visit Diagnoses Not on filedocumented in this encounter
--- OUTSIDE RECORDS SUMMARY | 2022-05-06 13:11 | XMS_ITS | Encounter Summary ---
:1935 Author Organization [facility] Address [address] [place] [address] Care Team Providers Name Role Phone Unavailable Primary Care Provider Unavailable Encounter Details Date Type Department Care Team Description 11/06/2015 Hospital Encounter HX [facility] ED Cristina Villagomez M.D. [address] [place] [address] (Wo rk) Social History Tobacco Use Types Packs/Day Years Used Date Smoking Tobacco: Never Assessed Sex Assigned at Date Recorded Not on file documented as of this encounter Last Filed Vital Signs Vital Sign Reading Time Taken Comments Blood Pressure 150/82 11/06/2015 10:19 PM [facility]HER Pulse 73 11/06/2015 10:19 PM [facility] Temperature - - Respiratory Rate 16 11/06/2015 10:19 PM [facility] Oxygen Saturation - - Inhaled Oxygen Concentration - - Weight - - Height - - Body Mass Index - - documented in this encounter Discharge Summaries Linnette Cleary RDannNDann - 11/06/2015 11:31 PM CST ED Discharge Instructions [address] [place] [address] Name: KATHRYN LEON Date of : 1935 12:00 AM Visit Date: 11/06/2015 9:31 PM [facility] Number: [id number] Address: [address] [place] [address] [place] [id number] Primary Care Provider: HUNTER SEQUEIRA MD IMPORTANT: [facility] in [place] would like to thank you for allowing us to assist you with your healthcare needs. The following includes patient education materials and informationregarding your injury/illness. Diagnosis: Pain Chest Wall (CWP) Follow-Up Instructions: With: Address: When: HUNTER SEQUEIRA [address] [place] [address] [place] [address] Business (1) Within As Needed Your Upcoming Appointments: Date Time Location Provider No Appointments found Patient Education Materials: Chest Strain A strain of the chest is due to stretching and tearing of the muscle fibers between the ribs. This may occur as a result of severe coughing, strenuous lifting or twisting injuries of the upper back. This usually causes increased pain with movement or deep breathing. This may take a few days to a few weeks to heal. Home Care: ?? Rest. Avoid heavy lifting or strenuous exertion. Avoid any activity that causes pain. ?? If you have a severe cough, use a cough syrup such as Robitussin DM (containing dextromethorphan)unless another cough medicine was prescribed. ?? You may use acetaminophen (Tylenol) or ibuprofen (Motrin, Advil) to control pain, unless another medicine was prescribed. [ NOTE: If you have chronic liver or kidney disease or ever had a stomach ulcer or GI bleeding, talk with your doctor before using these medicines.] Follow Up with your doctor as directed. Get Prompt Medical Attention if any of the following occur: ?? A change in the type of pain: if it feels different, becomes more severe, lasts longer, or beginsto spread into your shoulder, arm, neck, jaw or back ?? Shortness of breath or increased pain with breathing ?? Cough with dark colored sputum (phlegm) or blood ?? Weakness, dizziness, or fainting ?? Fever of 100.4?F (38?C) or higher, or as directed by your healthcare provider ?? [id number] Jannet Varela, [address] [place] [address], [place] [address]. All rights reserved. This information is not intended as a substitute for professional medical care. Always follow your healthcare professional's instructions. Chest Pain, Noncardiac Based on your visit today, the exact cause of your chest pain is not certain. Your condition does not seem serious and your pain does not appear to be coming from your heart. However, sometimes the signs of a serious problem take more time to appear. Therefore, please watch for the warning signs listed below. Home Care: Rest today and avoid strenuous activity. Take any prescribed medicine as directed. Follow Up with your doctor or this facility as instructed or if you do not start to feel better within 24 hours. Get Prompt Medical Attention if any of the following occur: ?? A change in the type of pain: if it feels different, becomes more severe, lasts longer, or beginsto spread into your shoulder, arm, neck, jaw or back ?? Shortness of breath or increased pain with breathing ?? Cough with dark colored sputum (phlegm) or blood ?? Weakness, dizziness, or fainting ?? Fever of 100.4?F (38?C) or higher, or as directed by your healthcare provider ?? Swelling, pain or redness in one leg ?? [id number] [facility], [address] [place] [address]. All rights reserved. This information is not [...] if you dont have one. Go to [email or web address] and click on Create Your Account. Then, follow the directions to complete the online form. Youll be asked for your [facility] number which you can find at the top of this document. ED Tests and Procedures: Order Status Oxygen - ED Ordered CBC (includes Auto Differential) Completed Comprehensive Metabolic Panel Completed DDimer Completed Pro B Natriuretic Peptide Completed Troponin T Completed XR Chest 1 view portable Completed Oxygen - ED Ordered Automated Diff-5 Part Completed Discharge Prescriptions & Home Medications: Medication/Strength Dose Route Frequency Indications/Special Instructions/Comments/Notes HYDROcodone-acetaminophen ([place] 5 mg-325 mg oral tablet) 1 to 2 tablets Oral every 6 hours as needed for Pain No more than 4,000mg acetaminophen/24hrs fexofenadine-pseudoephedrine (Rochelle-D 12 Hour 60 mg-120 mg oral tablet, extended release) 1 tab(s)Oral two times a day jasmyn/janki beal [phone] estradiol topical (Vagifem 10 mcg vaginal tablet) 10 mcg Vaginal 2 times a week Member No [phone] gabapentin (gabapentin 300 mg oral capsule) 900 mg Oral once a day *omeprazole (omeprazole 40 mg oral delayed release capsule) 40 mg Oral two times a day 30-60 min prior to meals / last saw patient 03/30/15, no mention of f/u, but referred patient to Dr. Mosley at [facility] fluticasone nasal (Flonase 0.05 mg/inh nasal spray) 2 spray(s) Nostrils(Both) once a day meclizine (meclizine 12.5 mg oral tablet) 1-2 [...] arrange a ride home with a responsible green party. CAROLYN Strange MARY CATHERINE , or responsible green party have received this information and my [...] arrange a ride home with a responsible green party. CAROLYN Strange MARY CATHERINE or responsible green party have received this information and my questions have been answered. I have discussed any challenges I see with this plan with the nurse or physician. Patient Signature or Responsible Democrat/Relationship Date Time Provider Signature Date Time This document has images extracted. Please consider using [employer] for all your patient education needs. Source: [facility] POWERCHART Document Id: [id number] HROOM MOTHER Linnette Cleary, R.N. - 11/06/2015 11:31 PM CST ED Depart Summary [facility] Emergency Department Clinical Discharge Summary PERSON INFORMATION Name KATHRYN LEON Age 80 Years 1935 12:00 AM Sex Female Language Canadian PCP HUNTER SEQUEIRA MD [id number] Reason Chest pain; side pain Specialty Enc Type Emergency Med Service Emergency Medicine Referred by Track Group [facility] ED Discharge 11/06/2015 11:31 PM Tracking Id [id number] Checkout 11/06/2015 11:31 PM Checkin 11/06/2015 9:31 PM Acuity 3 -Urgent Dispo Type * Discharged to Home or Self Care Arrival 11/06/2015 9:31 PM Reg Status Complete LOS 000 02:00 Address: [address] [place] [phone] Comment: PROVIDER INFORMATION Provider Role Provider Contact Time AZAR VILLAGOMEZ MD ED Provider 11/06/15 21:34 CHRISTOPHER ALANIS ED Nurse 11/06/15 21:35 LINNETTE CLEARY PSYCHOMETRIST Nurse 11/06/15 21:35 DIAGNOSIS Pain Chest Wall (CWP) Comment: PATIENT EDUCATION INFORMATION Instructions: CHEST WALL STRAIN; CHEST PAIN, NonCardiac Follow up: With: Address: When: HUNTER SEQUEIRA [address] [place] [id number] Business (1) Within As Needed Source: [facility] POWERCHART Document Id: [id number] HROOM MOTHER documented in this encounter Medications at Time [...] 60-120 mg per 12 hr day. tablet meclizine (for_ANTIVERT) Take by mouth 3 0 201405/12/2019 12.5 mg tablet (three) times a day as needed. documented as of this encounter ED Notes Linnette Cleary R.N. - 11/06/2015 11:30 PM CST ED Disposition Summary ED Disposition Summary Entered On: 11/06/2015 23:30 [facility] MOTHER Performed On: 11/06/2015 23:30 [facility]RO[facility] MOTHER by LINNETTE CLEARY PSYCHOMETRIST Disposition Summary Present in Room During Exam/Procedure : Spouse Mode of Discharge : Ambulatory Transportation : Private vehicle Printed Discharge Instructions Given to Patient : Yes LINNETTE CLEARY RN - 11/06/2015 23:30 [facility]CHRO[facility] MOTHER Source: [facility] Senstore Document Id: [id number] LUNCHROOM MOTHER!6 HROOM MOTHER Linnette Cleary R.N. - 11/06/2015 11:30 PM CST ED Pain Assessment ED Pain Assessment Entered On: 11/06/2015 23:30 L[employer]CHROOM MOTHER Performed On: 11/06/2015 23:30 [facility]CHRO[facility] MOTHER by LINNETTE CLEARY RN Pain Assessment Pain Symptoms : No LINNETTE CLEARY RN - 11/06/2015 23:30 LUNCHROOM MOTHER Source: [facility] Sen[employer] Document Id: [id number] LUNCHROOM MOTHER!3 HROOM MOTHER Christopher Alanis R.N. - 11/06/2015 10:15 PM CST ED Treatments and Procedures ED Treatments and Procedures Entered On: 11/06/2015 22:21 [facility]RO[facility] MOTHER Performed On: 11/06/2015 22:15 L[facility]CHROOM MOTHER by CHRISTOPHER ALANIS Peripheral IV Peripheral IV Assess/Intervention Grid Peripheral IV #1 IV Activity : Start Number of Attempts : 1 Date of Insertion : 11/06/2015 LUNCHROOM MOTHER IV Site : Antecubital Laterality : Left Catheter Size : 18 CHRISTOPHER ALAINS - 11/06/2015 22:20 L[facility]RO[facility] MOTHER Source: [facility] Sen[employer] Document Id: [id number] LUNCHROOM MOTHER!10 HROOM MOTHER Linnette Cleary R.N. - 11/06/2015 10:02 PM CST ED Primary Assessment Document Has Been Updated ED Primary Assessment Entered On: 11/06/2015 22:04 [facility]RO[facility] MOTHER Performed On: 11/06/2015 22:02 [facility]RO[facility] MOTHER by LINNETTE CLEARY RN Reason For Visit (As Of: 11/06/2015 22:04:09 LUNCHROOM MOTHER) Problems(Active) Abnormal Liver Function Test (ICD-9-CM :790.6 ) Name of Problem: Abnormal Liver Function Test ; Onset Date: 10/05/2014 ; Recorder: ALBANIA VARMA C.N.P., D.N.PDann; Confirmation: Confirmed ; Classification: Medical ; Code: 790.6 ; Contributor System: GOGETMi / ?.??Chart ; Last Updated: 11/17/2014 12:51 LUNCHROOM MOTHER ; LifeCycle Status: Active ; Responsible Provider: ALBANIA VARMA C.N.P., D.N.PDann; Vocabulary: ICD-9-CM Allergic rhinitis, unspecified (ICD-9-CM :477.9 [...] Nursing ; Code: 714.0 ; Contributor System: GOGETMi / ?.??Chart ; Last Updated: 10/25/2010 20:18 [facility]RO[facility] MOTHER ; Life Cycle Date: 10/25/2010 ; Life Cycle Status: Active ; Responsible Provider: PATTI ALMENDAREZ LPN; Vocabulary: ICD-9-CM Atrophic vaginitis (ICD-9-CM :627.3 ) Name of Problem: Atrophic vaginitis ; Onset Date: 07/27/2012 ;Recorder: ALBANIA VARMA C.N.P., D.N.PDann; Confirmation: Confirmed ; Classification: Medical ; Code: 627.3 ; Last Updated: 07/27/2012 11:32 L[facility]ROOM MOTHER ; Life Cycle Status: Active ; Responsible Provider: ALBANIA VARMA C.N.P., Suhas.N.P.; Vocabulary: ICD-9-CM Bursitis Hip/Trochanertic (ICD-9-CM :726.5 ) Name of Problem: Bursitis Hip/Trochanertic ; Onset Date: 10/20/2011 ; Recorder: ALBANIA VARMANSuhas Baker.N.PDann; Confirmation: Confirmed ; Classification: Medical ; Code: 726.5 ; Last Updated: 10/20/2011 9:54 L[facility]RO[facility] MOTHER ; Life Cycle Status: Active ; Responsible Provider: ALBANIA VARMA C.N.P., D.N.PDann; Vocabulary: ICD-9-CM Cataract NOS (ICD-9-CM :366.9 ) Name of Problem: Cataract NOS ; Onset Date: 1991 ; Recorder: PATTI ALMENDAREZ LPN; Confirmation: Confirmed ; Classification: Nursing ; Code: 366.9 ; Contributor System: Actix ; Last Updated: 01/21/2011 10:04 CDT ; Life Cycle Date: 10/25/2010 ; Life Cycle Status: Active ; Responsible Provider: PATTI ALMENDAREZ LPN; Vocabulary: ICD-9-CM ; Comments: 12/31/2010 12:11 - PATTI ALMENDAREZ LPN date unknown Celiac Disease (ICD-9-CM :579.0 ) Name of Problem: Celiac Disease ; Onset Date: 02/26/2007 ; Recorder: PATTI ALMENDAREZ LPN; Confirmation: Confirmed ; Classification: Nursing ; Code: 579.0 ; ContributorSystem: Actix ; Last Updated: 10/25/2010 20:20 LUNCHROOM MOTHER ; Life Cycle Date: 10/25/2010 ; Life Cycle Status: Active ; Responsible Provider: PATTI ALMENDAREZ LPN; Vocabulary: ICD-9-CM Chest wall pain* (ICD-9-CM :786.52 ) Name of Problem: Chest wall pain* ; Onset Date: 09/05/2013 ; Recorder: ALBANIA VARMAN.PSuhas Quigley.N.PDann; Confirmation: Confirmed ; Classification: Medical ; Code: 786.52 ; Last Updated: 02/01/2014 16:15 CDT ; Life Cycle Status: Active ; Responsible Provider: ALBANIA VARMAN.PDann, D.N.P.; Vocabulary: ICD-9-CM 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 ) Name of Problem: Disease Vocal Cord ; Recorder: ALBANIA VARMANOlivia, Suhas.N.PDann; Confirmation: Confirmed ; Classification: Medical ; Code: J38.3 ; Contributor System: GOGETMi / ?.??Chart ; Last Updated: 07/10/2015 10:30 CDT ; Life Cycle Status: Active ; Responsible Provider: ALBANIA VARMANOlivia, Suhas.N.PDann; Vocabulary: ICD-10-CM Diverticulitis of large intestine (ICD-9-CM :562.11 ) Name of Problem: Diverticulitis of large intestine ; Onset Date: 10/28/2010 ; Recorder: ALBANIA VARMANSuhas Baker.N.PDann; Confirmation: Confirmed ; Classification: Medical ; Code: 562.11 ; Last Updated: 10/28/2010 16:30 LUNCHROOM MOTHER ; Life Cycle Status: Active; Responsible Provider: ALBANIA VARMA C.N.P., Suhas.N.PDann; Vocabulary: ICD-9-CM Eye disorder (ICD-9-CM :379.8 ) Name of Problem: Eye disorder ; Recorder: TAMMY ACEVES MD; Confirmation: Confirmed ; Classification: UPDATE NEEDED ; Code: 379.8 ; Contributor System: GOGETMi / ?.??Chart ; Last Updated: 01/05/2012 19:00 CDT ; Life Cycle Date: 01/05/2012 ; Life Cycle Status: Active ; Responsible Provider: TAMMY ACEVES MD; Vocabulary: ICD-9-CM ; Comments: 01/21/2012 9:37 - MATTHEW BORDEN LPN date unknown Fracture of rib (SNOMED CT :12728763 ) Name of Problem: Fracture of rib ; Onset Date: 05/12/2013 ; Recorder: SUJATHA MAR LPN; Confirmation: Confirmed ; Classification: Nursing ; Code: 51338831 ;Contributor System: GOGETMi / ?.??Chart ; Last Updated: 06/07/2013 8:10 CDT ; [...] ALMENDAREZ LPN date unknown Glaucoma (SNOMED CT :96071357 ) Name of Problem: Glaucoma ; Recorder: TAMMY ACEVES MD; Confirmation: Confirmed ; Classification: Medical ; Code: 63990224 ; Contributor System: GOGETMi / ?.??Chart ; Last Updated: 01/05/2012 18:52 CDT ; Life Cycle Date: 01/05/2012 ; Life Cycle Status: Active ; ResponsibleProvider: TAMMY ACEVES MD; Vocabulary: SNOMED CT ; Comments: 01/21/2012 9:37 - MATTHEW BORDEN LPN date unknown Hernia, hiatal (ICD-9-CM :553.3 ) Name of Problem: Hernia, hiatal ; Onset Date: 10/31/2013 ; Recorder: ALBANIA VARMA C.N.PDann, D.N.PDann; Confirmation: Confirmed ; Classification: Medical ; Code: 553.3 ; Last Updated: 10/31/2013 11:53 LUNCHROOM MOTHER ; Life Cycle Status: Active ; Responsible Provider: ALBANIA VARMA C.N.PDann, D.N.P.; Vocabulary: ICD-9-CM 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 (ICD-9-CM :722.10 ) Name of Problem: 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 ; Recorder: ALBANIA VARMA.N.PDann, D.N.P.; Confirmation: Confirmed ; Classification: Medical ; Code: 722.10 ; Contributor System: GOGETMi / ?.??Chart ; Last Updated: 11/04/2010 9:49 LUNCHROOM MOTHER ; Life Cycle Date: 11/04/2010 ; Life Cycle Status: Active ; Responsible Provider: ALBANIA VARMA C.N.PDann, D.N.P.; Vocabulary: ICD-9-CM ; Comments: 12/31/2010 12:11 - PATTI ALMENDAREZ LPN date unknown Osteopenia (ICD-9-CM :733.90 ) Name of Problem: Osteopenia ; Onset Date: 02/26/1987 ; Recorder: PATTI ALMENDAREZ LPN; Confirmation: Confirmed ; Classification: Nursing ; Code: 733.90 ; Contributor System: GOGETMi / ?.??Chart ; Last Updated: 10/25/2010 20:19 LUNCHROOM MOTHER ; Life Cycle Date: 10/25/2010 ; Life Cycle Status: Active ; Responsible Provider: PATTI ALMENDAREZ LPN; Vocabulary: ICD-9-CM Triage Mode of Arrival ED : Private vehicle Track : Medical Languages : Canadian Treatments Prior to Arrival : None Is Patient Female and 13-50 no hysterectomy : No LINNETTE CLEARY RN - 11/06/2015 22:02 LUNCHROOM MOTHER Pain Assessment Pain Symptoms : Yes LINNETTE CLEARY RN - 11/06/2015 22:02 LUNCHROOM MOTHER Respiratory Airway : Patent Respirations : Unlabored Respiratory Pattern : Regular Oxygen Start Time : 11/06/2015 21:48 LUNCHROOM MOTHER LINNETTE CLEARY RN - 11/06/2015 22:02 LUNCHROOM MOTHER Cardiovascular Heart Rhythm : Regular Skin Color : Normal for ethnicity Skin Description : Dry Skin Temperature : Warm Cardiovascular Detailed Assessment : Yes Monitoring Lead : I LINNETTE CLEARY RN - 11/06/2015 22:02 LUNCHROOM MOTHER CV Detailed CV Patient Stated Symptoms : Chest pain Nail Bed Color : [place] Capillary Refill : Less than 2 seconds Cardiac Rhythm : Sinus rhythm Ectopy Frequency : None LINNETTE CLEARY RN - 11/06/2015 22:02 LUNCHROOM MOTHER Neurological Last Well Time Known : Not applicable Level of Consciousness : Alert Orientation : Oriented x 3 Characteristics of Speech : Appropriate for age LINNETTE CLEARY RN - 11/06/2015 22:02 LUNCHROOM MOTHER ED Psychosocial Affect/Behavior : Calm, Cooperative, Appropriate Domestic Abuse Concerns : None Behavioral Health Screen/Safety Assmt : No LINNETTE CLEARY RN - 11/06/2015 22:02 LUNCHROOM MOTHER Gastrointestinal Nutrition ED : Adequate LINNETTE CLEARY RN - 11/06/2015 22:02 LUNCHROOM MOTHER Musculoskeletal Fall Prevention Education Provided : Yes LINNETTE CLEARY RN - 11/06/2015 22:02 LUNCHROOM MOTHER Social Habits Exposure to Tobacco Smoke : Care provider denies smoking in home, Other: never Smoking Status : Never smoker Tobacco 2A : No Tobacco Use/Currently Using : No Tobacco Use/Last 30 Days : No Tobacco Use/Last 12 months : No LINNETTE CLEARY RN - 11/06/2015 22:02 LUNCHROOM MOTHER Alcohol Use Grid Alcohol Use : Yes Type : Liquor Frequency : Occasionally LINNETTE CLEARY RN - 11/06/2015 22:02 LUNCHROOM MOTHER Recreational Drug Use Grid Drug Use : None LINNETTE CLEARY RN - 11/06/2015 22:02 LUNCHROOM MOTHER Source: [facility] Senstore Document Id: [id number] LUNCHROOM MOTHER!55 HROOM MOTHER Linnette Cleary R.N. - 11/06/2015 9:58 PM CST ED Treatments and Procedures ED Treatments and Procedures Entered On: 11/06/2015 21:59 LUNCHROOM MOTHER Performed On: 11/06/2015 21:58 LUNCHROOM MOTHER by LINNETTE CLEARY RN Cardiac Monitoring Monitoring Lead : II Monitoring Lead Manager Baby : Initiated Ventricular Rhythm : Regular Ectopy Frequency : None Cardiac Rhythm Tech : Sinus rhythm LINNETTE CLEARY RN - 11/06/2015 21:58 LUNCHROOM MOTHER Oxygen Therapy Oxygen Start Time : 11/06/2015 21:48 LUNCHROOM MOTHER Oxygen Therapy : Nasal cannula Oxygen Flow Rate : 2 L/min LINNETTE CLEARY RN - 11/06/2015 21:58 LUNCHROOM MOTHER Source: [facility] Senstore Document Id: [id number] LUNCHROOM MOTHER!11 HROOM MOTHER Linnette Cleary R.N. - 11/06/2015 9:56 PM CST ED Triage Assessment Document Has Been Updated ED Triage Assessment Entered On: 11/06/2015 21:58 LUNCHROOM MOTHER Performed On: 11/06/2015 21:56 LUNCHROOM MOTHER by LINNETTE CLEARY RN Reason For Visit (As Of: 11/06/2015 21:58:27 LUNCHROOM MOTHER) Problems(Active) Abnormal Liver Function Test (ICD-9-CM :790.6 ) Name of Problem: Abnormal Liver Function Test ; Onset Date: 10/05/2014 ; Recorder: ALBANIA VARMAPSuhas Quigley.N.PDann; Confirmation: Confirmed ; Classification: Medical ; Code: 790.6 ; Contributor System: PowerChart ; Last Updated: 11/17/2014 12:51 LUNCHROOM MOTHER ; LifeCycle Status: Active ; Responsible Provider: ALBANIA VARMA C.N.P., Suhas.N.PDann; Vocabulary: ICD-9-CM Allergic rhinitis, unspecified (ICD-9-CM :477.9 [...] Nursing ; Code: 714.0 ; Contributor System: GOGETMi / ?.??Chart ; Last Updated: 10/25/2010 20:18 LUNCHROOM MOTHER ; Life Cycle Date: 10/25/2010 ; Life Cycle Status: Active ; Responsible Provider: PATTI ALMENDAREZ LPN; Vocabulary: ICD-9-CM Atrophic vaginitis (ICD-9-CM :627.3 ) Name of Problem: Atrophic vaginitis ; Onset Date: 07/27/2012 ;Recorder: ALBANIA VARMAN.PDann, D.N.PDann; Confirmation: Confirmed ; Classification: Medical ; Code: 627.3 ; Last Updated: 07/27/2012 11:32 LUNCHROOM MOTHER ; Life Cycle Status: Active ; Responsible Provider: ALBANIA VARMAN.PDann, D.N.P.; Vocabulary: ICD-9-CM Bursitis Hip/Trochanertic (ICD-9-CM :726.5 ) Name of Problem: Bursitis Hip/Trochanertic ; Onset Date: 10/20/2011 ; Recorder: ALBANIA VARMA.N.PDann, D.N.PDann; Confirmation: Confirmed ; Classification: Medical ; Code: 726.5 ; Last Updated: 10/20/2011 9:54 LUNCHROOM MOTHER ; Life Cycle Status: Active ; Responsible Provider: ALBAINA VARMAN.PDann, D.N.P.; Vocabulary: ICD-9-CM Cataract NOS (ICD-9-CM :366.9 ) Name of Problem: Cataract NOS ; Onset Date: 1991 ; Recorder: PATTI ALMENDAREZ LPN; Confirmation: Confirmed ; Classification: Nursing ; Code: 366.9 ; Contributor System: GOGETMi / ?.??Chart ; Last Updated: 01/21/2011 10:04 CDT ; Life Cycle Date: 10/25/2010 ; Life Cycle Status: Active ; Responsible Provider: PATTI ALMENDAREZ LPN; Vocabulary: ICD-9-CM ; Comments: 12/31/2010 12:11 - PATTI ALMENDAREZ LPN date unknown Celiac Disease (ICD-9-CM :579.0 ) Name of Problem: Celiac Disease ; Onset Date: 02/26/2007 ; Recorder: PATTI ALMENDAREZ LPN; Confirmation: Confirmed ; Classification: Nursing ; Code: 579.0 ; ContributorSystem: Actix ; Last Updated: 10/25/2010 20:20 LUNCHROOM MOTHER ; Life Cycle Date: 10/25/2010 ; Life Cycle Status: Active ; Responsible Provider: PATTI ALMENDAREZ LPN; Vocabulary: ICD-9-CM Chest wall pain* (ICD-9-CM :786.52 ) Name of Problem: Chest wall pain* ; Onset Date: 09/05/2013 ; Recorder: ALBANIA VARMA.N.PDann, D.N.PDann; Confirmation: Confirmed ; Classification: Medical ; Code: 786.52 ; Last Updated: 02/01/2014 16:15 CDT ; Life Cycle Status: Active ; Responsible Provider: ALBANIA VARMA.N.PDann, D.N.P.; Vocabulary: ICD-9-CM 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 ) Name of Problem: Disease Vocal Cord ; Recorder: ALBANIA VARMA.N.PDann, D.N.PDann; Confirmation: Confirmed ; Classification: Medical ; Code: J38.3 ; Contributor System: PowerChart ; Last Updated: 07/10/2015 10:30 CDT ; Life Cycle Status: Active ; Responsible Provider: ALBANIA VARMA C.N.P., JellyN.PDann; Vocabulary: ICD-10-CM Diverticulitis of large intestine (ICD-9-CM :562.11 ) Name of Problem: Diverticulitis of large intestine ; Onset Date: 10/28/2010 ; Recorder: ALBANIA VARMA C.N.P., D.N.PDann; Confirmation: Confirmed ; Classification: Medical ; Code: 562.11 ; Last Updated: 10/28/2010 16:30 LUNCHROOM MOTHER ; Life Cycle Status: Active; Responsible Provider: ALBANIA VARMA C.N.P., Suhas.N.PDann; Vocabulary: ICD-9-CM Eye disorder (ICD-9-CM :379.8 ) Name of Problem: Eye disorder ; Recorder: TAMMY ACEVES MD; Confirmation: Confirmed ; Classification: UPDATE NEEDED ; Code: 379.8 ; Contributor System: GOGETMi / ?.??Chart ; Last Updated: 01/05/2012 19:00 CDT ; Life Cycle Date: 01/05/2012 ; Life Cycle Status: Active ; Responsible Provider: TAMMY ACEVES MD; Vocabulary: ICD-9-CM ; Comments: 01/21/2012 9:37 - MATTHEW BORDEN LPN date unknown Fracture of rib (SNOMED CT :48325821 ) Name of Problem: Fracture of rib ; Onset Date: 05/12/2013 ; Recorder: SUJATHA MAR LPN; Confirmation: Confirmed ; Classification: Nursing ; Code: 83815884 ;Contributor System: GOGETMi / ?.??Chart ; Last Updated: 06/07/2013 8:10 CDT ; [...] ; Comments: 12/31/2010 12:11 - PATTI ALMENDAREZ TOURS HOSTESS date unknown Glaucoma (SNOMED CT :14692521 ) Name of Problem: Glaucoma ; Recorder: TAMMY ACEVES MD; Confirmation: Confirmed ; Classification: Medical ; Code: 94325668 ; Contributor System: PowerChart ; Last Updated: 01/05/2012 18:52 CDT ; Life Cycle Date: 01/05/2012 ; Life Cycle Status: Active ; ResponsibleProvider: TAMMY ACEVES MD; Vocabulary: SNOMED CT ; Comments: 01/21/2012 9:37 - SUHAMATTHEW TOURS HOSTESS date unknown Hernia, hiatal (ICD-9-CM :553.3 ) Name of Problem: Hernia, hiatal ; Onset Date: 10/31/2013 ; Recorder: ALBANIA VARMA C.N.PDann, D.N.PDann; Confirmation: Confirmed ; Classification: Medical ; Code: 553.3 ; Last Updated: 10/31/2013 11:53 LUNCHROOM MOTHER ; Life Cycle Status: Active ; Responsible Provider: ALBANIA VARMA C.N.PDann, D.N.P.; Vocabulary: ICD-9-CM 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 (ICD-9-CM :722.10 ) Name of Problem: 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 ; Recorder: ALB[place]IA VARMA C.N.PDann, D.N.P.; Confirmation: Confirmed ; Classification: Medical ; Code: 722.10 ; Contributor System: PowerChart ; Last Updated: 11/04/2010 9:49 LUNCHROOM MOTHER ; Life Cycle Date: 11/04/2010 ; Life Cycle Status: Active ; Responsible Provider: ALBANIA VARMA C.N.PDann, D.N.P.; Vocabulary: ICD-9-CM ; Comments: 12/31/2010 12:11 - PATTI ALMENDAREZ LPN date unknown Osteopenia (ICD-9-CM :733.90 ) Name of Problem: Osteopenia ; Onset Date: 02/26/1987 ; Recorder: PATTI ALMENDAREZ LPN; Confirmation: Confirmed ; Classification: Nursing ; Code: 733.90 ; Contributor System: Actix ; Last Updated: 10/25/2010 20:19 LUNCHROOM MOTHER ; Life Cycle Date: 10/25/2010 ; Life Cycle Status: Active ; Responsible Provider: PATTI ALMENDAREZ LPN; Vocabulary: ICD-9-CM Triage Chief Complaint Description : presents with left lateral chest pain that started at 2100 while she was getting undressed Information Given By : Patient Present in Room During Exam/Procedure : Spouse Mode of Arrival ED : Private vehicle Track : Medical Languages : [place] Patient Informed of Triage Location : Emergency department Vital Signs Assessed : Yes Treatments Prior to Arrival : None Is Patient Female and 13-50 no hysterectomy : No LINNETTE CLEARY RN - 11/06/2015 21:56 LUNCHROOM MOTHER Vital Signs Temperature Core : 36.4 DegC(Converted to: 97.5 DegF) (LOW) Peripheral Pulse Rate : 78 /min Respiratory Rate : 16 /min Systolic Blood Pressure : 132 mmHg Diastolic Blood Pressure : 72 mmHg NIBP Mean : 92 mmHg SpO2 : 99 % Oxygen Therapy : Room air LINNETTE CLEARY RN - 11/06/2015 21:56 LUNCHROOM MOTHER Pain Assessment Pain Symptoms : Yes LINNETTE CLEARY RN - 11/06/2015 21:56 LUNCHROOM MOTHER Pain Scale Pain Scale Verbal 0-10 : Open LINNETTE CLEARY RN - 11/06/2015 21:56 LUNCHROOM MOTHER Pain Pain Assessment Grid Pain 1 Location : Chest Laterality : Left Intensity : 8 Time Pattern : Acute Onset : Sudden Quality : Sharp LINNETTE CLEARY RN - 11/06/2015 21:56 LUNCHROOM MOTHER ED Physician Notification Time ED Physician Notification Time : 11/06/2015 21:58 LUNCHROOM MOTHER LINNETTE CLEARY RN - 11/06/2015 21:56 LUNCHROOM MOTHER CAMI DCP GENERIC CODE Tracking Acuity : 3 -Urgent Tracking Group : [facility] ED LINNETTE CLEARY RN - 11/06/2015 21:56 LUNCHROOM MOTHER Allergy (As Of: 11/06/2015 21:58:27 LUNCHROOM MOTHER) Allergies (Active) Glutens Estimated Onset Date: Unspecified ; Created By: PATTI ALMENDAREZ LPN; Reaction Status: Active; Category: Drug ; Substance: Glutens ; Type: Allergy ; Updated By: PATTI ALMENDAREZ LPN; Reviewed Date: 11/06/2015 21:58 LUNCHROOM MOTHER miconazole topical Comments: Comment 1: MICONAZOLE NITRATE ; Created By: Contributor_system, [facility]_HX_ALRG_SYS; Reaction Status: Active ; Category: Drug ; Substance: miconazole topical ; Type: Unknown ;Updated By: Contributor_system, [facility]_HX_ALRG_SYS; Reviewed Date: 11/06/2015 21:58 LUNCHROOM MOTHER Nuts Estimated Onset Date: Unspecified ; Created By: PATTI ALMENDAREZ LPN; Reaction Status: Active ; Category: Food ; Substance: Nuts ; Type: Allergy ; Updated By: PATTI ALMENDAREZ LPN; Reviewed Date: 11/06/2015 21:58 LUNCHROOM MOTHER ID Screen Drug Resistant Organism : No Travel Within Last 21 Days : No Contact with someone with Ebola : No LINNETTE CLEARY RN - 11/06/2015 21:56 LUNCHROOM MOTHER Immunizations Immunizations Current : Yes LINNETTE CLEARY RN - 11/06/2015 21:56 LUNCHROOM MOTHER Source: [facility] Senstore Document Id: [id number] LUNCHROOM MOTHER!46 HROOM MOTHER Azar Villagomez M.D. - 11/06/2015 9:55 PM CST Chest pain Patient: KATHRYN LEON Age: 80 years Sex: Female : 1935 Author: AZAR VILLAGOMEZ MD Attachments: None Associated Diagnosis: Pain Chest Wall (CWP) Basic Information Time seen: Date & time 11/06/2015 22:10:00. History source: Patient, significant other. Arrival mode: Private vehicle, walking. History limitation: None. Additional information: Chief Complaint from Nursing Triage Note : Chief Complaint Description 11/06/2015 21:56 LUNCHROOM MOTHER Chief Complaint Description presents with left lateral chest pain that started at 2100 while she was getting undressed . History of Present Illness Has left chest pain that worsened when she was undressing this evening at 2100. May have been present during dinner. Worse with deep breaths and movement. No associated sweating, nausea, or cough. Did help her with some lifting of 30-40 pound objects on 11/03, which is more lifting than she usually does. Did not take anything for pain prior to arrival. Has been well. Her liver function tests have been elevated for over a year, and this is being followed by a [place] specialist. She has no history of cardiac or respiratory disease. She states many years ago she had a blood clot in her leg after a surgery. She did fall two years ago and broke her ribs on the left side. The patient presents with chest pain. The onset was 1 hours ago. The course/duration of symptoms is constant. Location: Left lateral inferior chest. Radiating pain: none. The character of symptoms is sharp and pleuritic. The degree at present is severe, 7 /10, with breathing or movement. There are exac erbating factors including movement and breathing. The relieving factor is rest. Risk factors consist of not coronary artery disease, not hypertension, not diabetes mellitus, not smoking, not obesity, not hyperlipidemia and not pulmonary embolism. 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 Therapy today None. Associated symptoms: anxiety, denies shortness of breath, denies nausea, denies vomiting and denies diaphoresis. Previous history of breast reduction surgery. Review of Systems Constitutional symptoms: Negative except as documented in HPI. Skin symptoms: No rash. Eye symptoms: Negative except as documented in HPI. ENMT symptoms: Negative except as documented in HPI. Respiratory symptoms: No cough or no wheezing. Cardiovascular symptoms: No palpitations, no syncope, no diaphoresis or no peripheral edema. Gastrointestinal symptoms: No abdominal pain, no nausea or no vomiting. Musculoskeletal symptoms: Chronic leg pain after back surgery/nerve damage, but no back pain. Neurologic symptoms: Negative except as documented in HPI. Additional review of systems information: All other systems reviewed and otherwise negative. Health Status Allergies: Allergic Reactions (Selected) Severity Not Documented Glutens- No reactions were documented. Nuts- No reactions were documented. Nonallergic Reactions (Selected) Severity Not Documented Miconazole topical- No reactions were documented.. Medications: (Selected) Prescriptions Prescribed Rochelle-D 12 Hour 60 mg-120 mg oral tablet, extended release: 1 tab(s), PO, 2xDay, 180 tab(s), 3 Refill(s) Flonase 0.05 mg/inh nasal spray: 2 spray(s), Nostrils(Both), Daily, 3 each, 1 Refill(s) Vagifem 10 mcg vaginal tablet: 10 mcg, Vaginal, 2xWeek, Member No [phone], 26 tab(s), 2 Refill(s) gabapentin 300 mg oral capsule: 900 mg, 3 cap(s), PO, Daily, 270 cap(s), 1 Refill(s) meclizine 12.5 mg oral tablet: 1-2 tab(s), PO, 3xDay, 60 tab(s), PRN: Dizziness omeprazole 40 mg oral delayed release capsule: 40 mg, 1 cap(s), PO, 2xDay, 30-60 min prior to meals,90 cap(s), 2 Refill(s) Delete Bactroban 2% topical ointment: 1 tj, Topical, 3xDay, 22 gm, 0 Refill(s) Documented Medications Documented Citracal: 1tab, 2xDay Cosopt ophthalmic solution: 1 drop(s), Daily, in the right eye only Multiple Vitamins oral tablet: 1 tab(s), PO, Daily, 30 tab(s) Restasis: one drop, Eyes(Both), q12hr Vitamin B-12: 1,000 mcg, PO, Daily ferrous sulfate 325 mg (65 mg elemental iron) oral tablet: 325 mg, 1 tab(s), PO, Daily. Immunizations: Include Immunizations Immunizations reviewed. , tetanus up to date. Past Medical/ Family/ Social History Medical history: Resolved Glaucoma NOS (365.9): Resolved.. Surgical history: Upper gastrointestinal endoscopy ([id number]) on 11/30/2013 at 78 Years. MAMMOGRAM ([id number]) on 08/25/2013 at 78 Years. Comments: 10/31/2013 11:24 - SUJATHA MAR LPN [place] Normal may resume in [place] Mammogram ([id number]) on 07/15/2012 at 77 Years. Diagnostic colonoscopy ([id number]) on 03/25/2011 at 76 Years. Comments: 03/25/2011 08:49 - SAGRARIO NOLAND MD Sigmoid diverticulosis--not inflamed. Dual-energy X-ray absorptiometry (DXA), bone density study, 1 or more sites; axial skeleton (eg, hips, pelvis, spine).. ([id number]) in the week of 08/14/2010 at 75 Years. Comments: 10/25/2010 09:40 - CARMELO RHODES Hx: [id number] - BONE DEN HIPS/PEL/SP 08/01/2013 19:17 - Contributor source changed to PowerChart. Mammogram ([id number]) on 07/22/2010 at 75 Years. Mammogram ([id number]) on 06/28/2010 at 75 Years. Laminectomy approach to lumbar spine ([id number]) in 2008 at 74 Years. Colonoscopy ([id number]) on 02/01/2009 at 73 Years. Extracapsular cataract removal with insertion of intraocular lens prosthesis (1 stage procedure), manual or mechanical technique (eg, irrigation and aspiration or phacoemulsification) (21037) on 02/26/2007 at 72 Years. Comments: 10/25/2010 20:26 - PATTI ALMENDAREZ TOURS HOSTESS left HC COLONOSCOPY W SNARE REMOVAL TUMOR/POLYP/LESION - 12/31/06 on 12/31/2006 at 71 Years. HC ANTER COLPORRHAPHY,BLAD/VAGINA - 03/22/01 - ANTERIOR POSTERIOR REPAIR on 03/22/2001 at 66 Years. HC FLEX SIGMOIDOSCOPY W/WO JAMES SPEC BY BRUSH/WASH - on 06/14/1999 at 64 Years. Repair of cystocele ([id number]) in 1994 at 60 Years. Reduction mammaplasty () on 02/26/1982 at 47 Years. Hysterectomy ([id number]) on 11/04/1966 at 31 Years. Comments: 03/25/2011 08:51 - SAGRARIO NOLAND MD Vaginal Hemorrhoidectomy, internal and external, single column/group; ([id number]) on 02/26/1959 at 24 Years. C GLAUCOMA [...] history: Alcohol use: Denies, Tobacco use: Denies, Occupation: Retired, Family/social situation: . 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 Physical Examination Vital Signs: Vital Signs 11/06/2015 21:56 LUNCHROOM MOTHER Temperature Core 36.4 DegC LOW Peripheral Pulse Rate 78 /min Respiratory Rate 16 /min SpO2 99 % Systolic Blood Pressure 132 mmHg Diastolic Blood Pressure 72 mmHg . General: Alert, mild distress and anxious. Skin: Warm, dry and no rash. Head: Normocephalic. Neck: Supple. Eye: Dry eyes, conjunctiva red. Ears, nose, mouth and throat: Tympanic membranes clear and oral mucosa moist. Cardiovascular: Regular rate and rhythm, No murmur and No edema. Respiratory: Breath sounds are equal and Respirations: Regular. Chest wall: and On exam: Left, lateral, inferior, tenderness, no ecchymosis, no rash, no crepitus, no subcutaneous emphysema, no palpable rib fracture(s). Back: Normal alignment. Musculoskeletal: No deformity Gastrointestinal: Non distended. Neurological: Normal speech observed. Lymphatics: No lymphadenopathy. Psychiatric: Cooperative. Medical Decision Making Differential Diagnosis:Angina, pulmonary embolism, atypical chest pain, costochondritis, pleurisy, chest wall pain. Documents reviewed:Emergency department nurses' notes, prior records. OrdersLaunch Orders Laboratory: CBC (includes Auto Differential) (Order Processing): Stat, 11/06/2015 22:12 LUNCHROOM MOTHER, Once Comprehensive Metabolic Panel (Order Processing): Stat, 11/06/2015 22:12 LUNCHROOM MOTHER, Once DDimer (Order Processing): Stat, 11/06/2015 22:12 LUNCHROOM MOTHER, Once Pro B Natriuretic Peptide (Order Processing): Stat, 11/06/2015 22:12 LUNCHROOM MOTHER, Once Troponin T (Order Processing): Stat, 11/06/2015 22:12 LUNCHROOM MOTHER, Once Patient Care: ED Chest Pain (Order Processing) Peripheral IV (Order Processing): 11/06/2015 22:12 LUNCHROOM MOTHER ED Saline Lock (Order Processing) Peripheral IV (Order Processing): 11/06/2015 22:12 LUNCHROOM MOTHER Pharmacy: Saline flush (Order Processing): 10 mL, IV Push, PRN, PRN: Maintain IV access aspirin (Order Processing): 324 mg, PO, Once Radiology: XR Chest 1 view portable (Order Processing): 11/06/2015 22:12 LUNCHROOM MOTHER, Chest pain, Stat, Portable, Once,11/06/2015 22:12 LUNCHROOM MOTHER, [facility] ED ED: Oxygen - ED (Order Processing): 11/06/2015 22:12 LUNCHROOM MOTHER, Once, Stat, 11/06/2015 22:12 LUNCHROOM MOTHER, PRN to keep oxygen saturation above 95%., Launch Orders Pharmacy: Toradol (Order Processing): 15 mg, IV Push, Once. Electrocardiogram:Time 11/06/2015 21:38:00, rate 75, normal sinus rhythm, normal [place] & QRS intervals, Nonspecific ST abnormality Minimal voltage criteria for LVH. Results review:Lab results : Lab View 11/06/2015 22:17 LUNCHROOM MOTHER Hgb 13.3 g/dL Hct 39.3 % WBC 5.2 x10(9)/L RBC 4.39 x10(12)/L MCV 89.5 fL RDW 12.4 % Platelet 164 x10(9)/L Neutro Absolute 2.72 10(9)/L Lymph Absolute 1.72 x10(9)/L Fajardo Absolute 0.55 x10(9)/L Eos Absolute 0.13 x10(9)/L Baso Absolute 0.03 x10(9)/L D-Dimer 0.23 mcg/mL FEU Sodium Lvl 132.8 mM/L LOW Potassium Lvl 4.5 mmol/L Chloride 96 mmol/L LOW CO2 27.9 mmol/L AGAP 9 mmol/L LOW Alkaline Phosphatase 70 U/L Pro B Rut Pep 108.30 pg/mL Glucose Lvl 91 mg/dL Creatinine 0.91 mg/dL EGFR (MDRD) 60 mL/min/1.73m2 EGFR (MDRD) >60 mL/min/1.73m2 BUN 17 mg/dL Calcium Lvl 9.4 mg/dL Protein Total 7.0 g/dL Albumin Lvl 4.1 g/dL AST 51 unit/L HI ALT 89 unit/L HI Bili Total 0.4 mg/dL Troponin-T <0.01 ng/mL , Interpretation LFTs have been elevated for a year, and she had a recentliver biopsy. Actually lower than last check.. Chest X-Ray:Minimal atelectasis or scar left base. Interval healing of left rib fracture. Otherwise no significant findings.. Reexamination/ Reevaluation Pain improved with use of Toradol. Adamantly refused nitroglycerin, as she previously had a severe headache when she used it. Impression and Plan Diagnosis Pain Chest Wall (CWP) (Discharge, Emergency medicine, Medical) Plan Condition: Improved. Disposition: Medically cleared, Discharged: to home. Prescriptions: [place] 5/325 #20 to use if needed.. Patient was given the following educational materials: CHEST WALL STRAIN, CHEST PAIN, NonCardiac. Follow up with: HUNTER SEQUEIRA Within As Needed. Counseled: Patient, Family, Regarding diagnosis, Regarding diagnostic results, Regarding treatment plan, Patient indicated understanding of instructions. Electronically Signed By: AZAR VILLAGOMEZ MD On: 11/08/2015 11:55 AM Modified by and Electronically Signed by: AZAR VILLAGOMEZ MD On: 11/06/2015 10:50 PM This document has images extracted. Source: [facility] POWERCHART Document Id: [id number]} HROOM MOTHER documented in this encounter Miscellaneous Notes Miscellaneous - Conversion, Historical Provider Ser - 11/06/2015 11:31 PM LUNCHROOM MOTHER Coding Summary-Paper Based CODING DATE: 11/27/2015 FINAL [place] [facility] STATUS: * Discharged to Home or Self Care PAYOR: Medicare ADMIT DX: R07.89 Other chest pain REASON FOR VISIT DX: R07.89 Other chest pain FINAL DX: PRINCIPAL: R07.89 Other chest pain SECONDARY: M79.606 Pain in leg, unspecified PROCEDURES DOCTOR NAME DATE NOTE: The code number assigned matches the documented diagnosis and / or procedure in the patient's chart. However, the narrative phrase printed from the coding software may appear abbreviated, or result in slightly different terminology. Coded By: PRERNA RODNEY Date Saved: 11/14/2015 11:04 am [facility] Document Id: [id number] [place] - Linnette Cleary RDannN. - 11/06/2015 11:30 PM CST Valuables/Belongings Valuables/Belongings Entered On: 11/06/2015 23:30 LUNCHROOM MOTHER Performed On: 11/06/2015 23:30 LUNCHROOM MOTHER by LINNETTE CLEARY RN Valuables/Belongingdaria Home Medication Disposition : None brought in with patient LINNETTE CLEARY RN - 11/06/2015 23:30 LUNCHROOM MOTHER Source: [facility] Senstore Document Id: [id number] LUNCHROOM MOTHER!3 HROOM MOTHER Cherylcellaneous - Linnette Cleary RDannN. - 11/06/2015 9:31 PM CST Facility Charge Ticket 2.0 11.0 DX Facility Charge Ticket 2.0 11.0 DX Entered On: 11/06/2015 23:31 LUNCHROOM MOTHER Performed On: 11/06/2015 21:31 LUNCHROOM MOTHER by LINNETTE CLEARY RN Facility Charge Ticket 2.0 11.0 DX ED Other Charges : Standard ED Encounter TVL Level Translated RTF : Chest pain TVL:5 TVL Level for Facility Charge Ticket : Level 5 Arrival Mode Calc : 1 Mode of Arrival ED : Private vehicle [place] Mode of Arrival Interpreted : Standard [place] Process Management : None Order Management RTF : Laboratory CBC (includes Auto Differential),11/06/15 22:12,AZAR VILLAGOMEZ MD Completed Comprehensive Metabolic Panel,11/06/15 22:12,AZAR VILLAGOMEZ MD Completed DDimer,11/06/15 22:12,AZAR VILLAGOMEZ MD Completed Pro B Natriuretic Peptide,11/06/15 22:12,AZAR VILLAGOMEZ MD Completed Troponin T,11/06/15 22:12,AZAR VILLAGOMEZ MD Completed Automated Diff-5 Part,11/06/15 22:19,AZAR VILLAGOMEZ MD Completed Xray XR Chest 1 view portable,11/06/15 22:12,AZAR VILLAGOMEZ MD Completed EKG / Respiratory / Ancillary Oxygen - ED,11/06/15 21:34,AZAR VILLAGOMEZ MD Ordered Oxygen - ED,11/06/15 22:12,AZAR VILLAGOMEZ MD Ordered [place]x Order Management : EKG, RT, Ancillary Services, Lab tests, Xray - plain films 30 Minutes Critical Care : No Nursing Notes RTF : Triage Forms ED Triage Assessment,11/06/15 21:56,LINNETTE CLEARY RN Nursing Notes ED Primary Assessment,11/06/15 22:02,LINNETTE CLEARY PSYCHOMETRIST Pain Assessment,11/06/15 23:30,LINNETTE CLEARY RN [place] Nursing Assessment : Triage and 1-2 nursing assessments Lynx Disposition : Discharge [place] Total Points with Diagnosis Control : 14 [place]x Visit Level : 47673 Level 5 Treatments Prior to Arrival : None LINNETTE CLEARY RN - 11/06/2015 23:30 LUNCHROOM MOTHER Source: [facility] POWERCHART Document Id: [id number] LUNCHROOM MOTHER!18 HROOM MOTHER documented in this encounter Plan of Treatment Not on filedocumented as of this encounter Procedures Procedure Name Priority Date/Time Associated Comments Diagnosis AUTOMATED Routine 11/06/2015 10:17 Results for this DIFFERENTIAL, B PM LUNCHROOM MOTHER procedure ar e in the results section. NT-PRO B-TYPE Routine 11/06/2015 10:17 Results fo r this NATRIURETIC PEPTIDE PM LUNCHROOM MOTHER procedur e are in (BNP), S the results section. D-DIMER, P Routine 11/06/2015 10:17 Results for this PM LUNCHROOM MOTHER procedure are i n the results section. CBC WITH DIFFERENTIAL, Routine 11/06/2015 10:17 R esults for this B PM LUNCHROOM MOTHER procedure are i n the results section. TROPONIN T, 5TH GEN, P Routine 11/06/2015 10:17 R esults for this PM LUNCHROOM MOTHER procedure are i n the results section. COMPREHENSIVE Routine 11/06/2015 10:17 Results fo r this METABOLIC PANEL, S/P PM LUNCHROOM MOTHER procedu re are in the results section. documented in this encounter Results Automated Differential (11/06/2015 10:17 PM LUNCHROOM MOTHER) athologist Signature Absolute 2.72 1.70 - POWERCHART Neutrophils 7.00 109L Lymphocytes 1.72 0.90 - POWERCHART 2.90 X109L Monocytes 0.55 0.30 - POWERCHART 0.90 X109L Eosinophils 0.13 0.05 - POWERCHART 0.50 X109L Absolute 0.03 0.00 - POWERCHART Basophil 0.30 X109L Specimen Anatomical Collection Method Collection Time Receive d Time (Source) Location / / Volume Laterality Blood 11/06/2015 10:17 11/06/2015 PM LUNCHROOM MOTHER 10:17 PM LUNCHROOM MOTHER Azar Villagomez M.D. LAB BLOOD ADD-ON Performing Organization Address City/State/ZIP Code Phon e Number POWERCHART D-Dimer (11/06/2015 10:17 PM LUNCHROOM MOTHER) athologist Signature D-Dimer, P 0.23 0.00 - 0.50 POWERCHART [id number] Comment: Results of this test should always be in terpreted in conjunction with the patient's medical history, clinical presentation and other findings. DVT and PE clinical diagnosis should not be based on the D-Dimer result alone. The measurement of D-Dimer should not be used as an aid in the diagnosis of VTE, in patients with: -Therapeutic dose anticoagulant therapy for >24 hours -Fibrinolytic therapy within previous 7 days -Trauma or surgery within previous 4 wee ks -Disseminated malignancies -Aortic aneurysm -Sepsis, severe infections, pneumonia, s evere skin infections -Liver cirrhosis - Specimen (Source) Anatomical Collection Method Collection Time Re ceived Time Location / / Volume Laterality Blood 11/06/2015 10:17 PM LUNCHROOM MOTHER Azar Villagomez M.D. LAB BLOOD ADD-ON Performing Organization Address City/State/ZIP Code Phon e Number POWERCHART CBC with Differential (11/06/2015 10:17 PM LUNCHROOM MOTHER) P athologist Signature Leukocytes 5.2 3.4 - 10.5 POWERCHART X109L Erythrocytes 4.39 3.90 - 5.03 POWERCHART F2976V Hemoglobin 13.3 12.0 - 15.5 POWERCHART GDL Hematocrit 39.3 34.9 - 44.5 POWERCHART MCV 89.5 81.6 - 98.3 POWERCHART FL HX RDW 12.4 11.9 - 15.5 POWERCHART Platelet Count 164 150 - 450 POWERCHART X109L Specimen (Source) Anatomical Collection Method Collection Time Re ceived Time Location / / Volume Laterality Blood 11/06/2015 10:17 PM LUNCHROOM MOTHER Azar Villagomez M.D. LAB BLOOD ADD-ON Performing Organization Address City/State/ZIP Code Phon e Number POWERCHART Troponin T (11/06/2015 10:17 PM LUNCHROOM MOTHER) P athologist Signature Troponin T, S <0.01 <=0.01 NGML POWERCHART Comment: 0.03 - 0.1 ng/mL Intermediate Z one Specimen (Source) Anatomical Collection Method Collection Time Re ceived Time Location / / Volume Laterality Blood 11/06/2015 10:17 PM LUNCHROOM MOTHER Azar Villagomez M.D. LAB BLOOD ADD-ON Performing Organization Address City/State/ZIP Code Phon e Number POWERCHART NT-Pro B-Type Natriuretic Peptide (BNP) (11/06/2015 10:17 PM LUNCHROOM MOTHER) P athologist Signature B-Type 108.30 10.00 - POWERCHART Natriuretic 239.00 Peptide (BNP) PGML Comment: NT-proBNP values less than 300 pg/mL hav e a 99% negative predictive value for excluding acute congestive heart failure. A cutoff of 1200 pg/mL for patients with an eGFR<60 yields a diagnostic sensitivity and specificity of 89% and 72% for acute congestive heart failure. ? Adults <50 years: ??NT-proBNP values greater than 450 pg/mL are consistent with CHF. ? Adults 50-75 years: ??A diagnostic NT-proBNP cutoff of 900 pg/mL has been suggested in the absence of renal failure. ? Adults >75 years: ??A diagnostic NT-proBNP cutoff of 1800 pg/mL has been suggested in the absence of renal failure. Specimen (Source) Anatomical Collection Method Collection Time Re ceived Time Location / / Volume Laterality Blood 11/06/2015 10:17 PM LUNCHROOM MOTHER Azar Villagomez M.D. LAB BLOOD ADD-ON Performing Organization Address City/State/ZIP Code Phon e Number POWERCHART (ABNORMAL) CMP (Comprehensive Metabolic Panel) (11/06/2015 10:17 PM LUNCHROOM MOTHER) [facility] gist Method Time Signature Alanine 89 (H) 7 - 45 POWERCHART Amniotransferase, LD UNITL Albumin, S 4.1 3.5 - 5.0 POWERCHART GDL Alkaline 70 55 - 142 POWERCHART Phosphatase, S UL Aspartate 51 (H) 8 - 43 POWERCHART Aminotransferase UNITL (AST), S Sodium, S 132.8 (L) 135.0 - POWERCHART 145.0 MML Potassium, S 4.5 3.6 - 4.8 POWERCHART MMOLL Chloride, S 96 (L) 98 - 107 POWERCHART MMOLL CO2 Total 27.9 23.0 - POWERCHART 29.0 MMOLL BUN (Blood Urea 17 7 - 18 POWERCHART Nitrogen), S MGDL Creatinine 0.91 0.60 - POWERCHART 1.30 MGDL Calcium, Total, S 9.4 8.8 - POWERCHART 10.2 MGDL Anion Gap 9 (L) 10 - 20 POWERCHART MMOLL HXeGFR (MDRD) 60 >=60 POWERCHART [id number] 2 eGFR Black/ >60 >=60 POWERCHART Citizen Of [place] [id number] 2 Bilirubin, Total, S 0.4 0.1 - 1.0 POWERCHART MGDL Total Protein, S 7.0 6.3 - 7.9 POWERCHART GDL Glucose 91 70 - 139 POWERCHART MGDL Specimen (Source) Anatomical Collection Method Collection Time Re ceived Time Location / / Volume Laterality Blood 11/06/2015 10:17 PM [facility] Azar Villagomez M.D. LAB BLOOD ADD-ON Performing Organization Address City/State/ZIP Code Phon e Number POWERCHART documented in this encounter Visit Diagnoses Not on filedocumented in this encounter
--- OUTSIDE RECORDS SUMMARY | 2022-05-06 13:11 | XMS_ITS | Encounter Summary ---
:1935 Author Organization [facility] Address [address] [place] [address] Care Team Providers Name Role Phone Unavailable Primary Care Provider Unavailable Encounter Details Date Type Department Care Team Description 08/28/2014 Hospital Encounter HX [facility] Mary Aquino, CYRIL, C.N.P., D.N.P. [address] [place] [address] [phone] (Wo rk) Social History Tobacco [...] eye daily. documented as of this encounter Plan of Treatment Not on filedocumented as of this encounter Visit Diagnoses Not on filedocumented in this encounter
--- OUTSIDE RECORDS SUMMARY | 2022-05-06 13:11 | XMS_ITS | Encounter Summary ---
:1935 Author Organization [facility] Address [address] [place] [address] Care Team Providers Name Role Phone Unavailable Primary Care Provider Unavailable Encounter Details Date Type Department Care Team Description 07/13/2014 - Hospital Encounter HX [facility] [place] Varma, 11/07/2014 SRV CYRIL, C.N.P., D.N.P. [address] [place] [phone] Social History Tobacco Use Types Packs/Day [...] eye daily. documented as of this encounter Progress Notes Bianca Villalobos, P.T. - 10/04/2014 2:35 PM CST Talked with patient via telephone and she had another episode since I talked with her last time. Her spouse did two canalith repositioning technique treatments with her. She was very fatigued after, but did respond well. She did follow-up with her primary provide and had an MRI yesterday. She will get the results on 10/06/14. At this time she continues with Uribe-Daroff exercises 1x daily and will increase that to 3x daily if she begins to note onset of symptoms. Electronically Signed By: BIANCA VILLALOBOS On: 10/04/2014 02:37 PM Source: [facility] Document Id: [id number] RANCE ADJUSTER Bianca Villalobos P.T. - 09/25/2014 1:09 PM CST Talked with patient via telephone and her symptoms are now resolved. Patient's symptoms were consistent with positional vertigo and were successfully treated with canalith repositioning technique. Patient has had 3 episodes of vertigo first on 06/13/14, 07/31/14, and 09/22/14. Her symptoms seem to recover completely in between each episode. I recommend due to the frequency of reoccurences I recommend that she perform Uribe-Daroff exercises at 5 reps once daily. I also recommend that she follow up with her primary physician to ensure that there is nothing else medically that could be contributing to her symptoms. Patient is in agreement. I will followup with patient via telephone in one week, patient will contact therapist sooner if there is a change in her symptoms. Electronically Signed By: BIANCA VILLALOBOS On: 09/25/2014 01:15 PM Co-Signed By: ALBANIA VARMA RN, RADIOISOTOPE TECHNICIAN On: 09/28/2014 02:29 PM Source: [facility] Document Id: [id number] Bianca Jackson P.T. - 07/31/2014 12:00 AM CST [id number] PHYSICAL THERAPY DAILY PROGRESS NOTE CHIEF COMPLAINT Patient reports that her symptoms have returned. Patient is having symptoms of vertigo again. She reports that they have been building and really peaked on Thursday, which was yesterday 07/30/2014. Patient presents to physical therapy today with dizziness and some spinning. IMPRESSION/REPORT/PLAN We did perform physical assessment today with a Hallpike Jimmy positioning. Patient had a slight left posterior nystagmus 5 seconds in duration and a trigger of symptoms. She also felt it as well on the horizontal canal on the left. However, symptoms were reproduced with a strong nystagmus on the right p osterior canal, peaking symptoms in this position. We did perform DOLL WIG MAKER maneuvers for the right posterior canal x2. She tolerated this well, the first time with symptom reproduction, the second time without any symptoms. Patient will initiate Uribe-Daroff exercises for home exercise program tomorrow morning, should perform them at 5 reps 3 times per day. She will do that until the symptoms of spinning stop, but once that stops she will begin VOR exercises both horizontally and vertically 3 to 4 times per day. Patient tolerated our session well with symptom reproduction. Total treatment time today was 30 minutes. Plan will be to continue and followupas needed. Bianca Villalobos D.P.T./farhat Electronically Signed By: BIANCA VILLALOBOS On: 08/17/2014 03:35 PM Co-Signed By: ALBANIA VARMA RN, [facility] On: 08/18/2014 03:35 PM Source: [facility] MHSDOLBEYNONRADSYS Document Id: [id number] RANCE ADJUSTER Bianca Villalobos P.T. - 07/21/2014 2:39 PM CST Patient is out of town on vacation. Patient's symptoms have resolved and she will call if symptoms should return. Plan for discharge. Electronically Signed By: BIANCA VILLALOBOS On: 07/21/2014 02:40 PM Source: [facility] POWERCHART Document Id: [id number] RANCE ADJUSTER Bianca Villalobos P.T. - 07/15/2014 3:00 PM CDT Patient feeling better today. She still feels lightheaded, but has not had episodes of dizziness. She is still very guarded with head movements, but feeling better. Patient will call if symptoms do not continue to resolve. Electronically Signed By: BIANCA VILLALOBOS On: 07/15/2014 03:01 PM Source: [facility] Document Id: [id number] Bianca Villalobos P.T. - 07/14/2014 12:00 AM CDT [id number] PHYSICAL THERAPY DAILY PROGRESS NOTE CHIEF COMPLAINT Patient reports that she feels better today; however is still having symptoms of vertigo. PHYSICAL EXAMINATION We did perform Hallpike-Jimmy testing. With this we did notice symptoms for the right horizontal canal. No significant nystagmus was appreciated; however, symptoms were reproduced. Patient tested negative for all anterior and posterior canals bilaterally. IMPRESSION/REPORT/PLAN We did perform DOLL WIG MAKER maneuvers for the right horizontal canal. This was performed at 2 repetitions. She was symptomatic on the 1st, asymptomatic on the 2nd, tolerated this well. Plan will be to follow upwith patient via telephone tomorrow. All patient's questions were answered and she was escorted to the lobby where her spouse awaited her. Bianca Villalobos D.P.T./farhat Electronically Signed By: BIANCA VILLALOBOS On: 08/01/2014 09:27 AM Source: [facility] MHSDOLBEYNONRADSYS Document Id: [id number] RANCE ADJUSTER documented in this encounter Consult Notes Bianca Villalobos P.T. - 09/22/2014 12:00 AM CST [id number] PHYSICAL THERAPY NOTE Patient returns to physical therapy with a new onset of vertigo. Patient had initially been seen in 07/13/2014, had 2 treatments and then was managed through a home program. She was doing excellent, had recurrence on 07/31/2014 and had good results with that and has been managed independently with a home program. She had complete resolution of symptoms and patient was ready to be discharged until yesterday when she had sudden onset of symptoms noted when she went to get up from her chair at the computer. Patient describes symptoms of spinning and dizziness. She does have nausea. Patient has had multiple episodes of positional vertigo in the past, with 2 recent episodes in the last 3 months. PAST MEDICAL HISTORY Rheumatoid arthritis. Cataract. Diverticulitis. Hip enthesopathy. Eye disorder. Glaucoma. Hernia. Herniated disk. Celiac disease. MEDICATIONS Acetaminophen. Acidophilus. Probiotic. Rochelle. Aspirin. Citrucel laxative. Ferrous sulfate. Flonase. Gabapentin. Ibuprofen. Meclizine. Restasis. Vitamin B12. Vagifem. PHYSICAL EXAMINATION Today we did complete the Hallpike Jimmy testing which was positive for left posterior canal nystagmuswith a latency of 3 seconds and a duration of 10 seconds. Patient has a light nystagmus but it was visualized. Patient's did try canalith repositioning technique with her at home 2 times last night and she was feeling significantly better today, but comes in to ensure that her symptoms have resolved. She is still feeling lightheaded and nauseous today. Patient does continue to require skilledphysical therapy to resolve positional vertigo symptoms. Ready to learn. No apparent learning barriers were identified. Learning preferences include listening. Explained diagnosis and treatment plan. Patient/Child/Caregiver expressed understanding of the content. She does consent to therapy treatment. IMPRESSION/REPORT/PLAN We did perform canalith repositioning maneuvers for the left posterior canal. This was performed 1 time and she was symptomatic, repeated a 2nd time and she was asymptomatic. She tolerated this well. Patient's balance does pose an increased risk of falls at this time as balance is highly affected by this episode of positional vertigo. Hand-held assist was provided. Her spouse also provided this for her to and from the car. Encouraged patient to be cautious and assistive device would be appropriate to maintain safety and to reduce her risk of falling until her symptoms resolve. PATIENT GOALS 1. Functional reporting status had resolved and achieved her previous goals. However, due to the recurrence it will be measured at G8978 with modifier of CK. Projected goal status of G8979 with modifier of CI. This was determined by her clinical presentation of symptoms, requiring hand-held assist forbalance and difficulty performing activities of daily living, requiring her to lie in bed due to symptoms of vertigo. The goal will be to achieve this in 3 weeks. 2. Patient will note resolution of symptoms within 3 weeks. PLAN OF CARE DOLL WIG MAKER maneuvers. Home program. We also discussed possible further evaluation, recommend patient follow-up with her primary physician due to multiple repeat encounters of positional vertigo. Bianca Villalobos D.P.T./farhat Electronically Signed By: BIANCA VILLALOBOS On: 10/11/2014 08:51 AM Modified by and Electronically Signed by: BIANCA VILLALOBOS On: 10/11/2014 08:51 AM Co-Signed By: ALBAINA VARMA RN, [facility] On: 10/21/2014 01:12 PM Source: [facility] MHSDOLBEYNONRADSYS Document Id: [id number] RANCE ADJUSTER Bianca Villalobos P.Radha. - 07/13/2014 12:00 AM CDT [id number] PHYSICAL THERAPY INITIAL EVALUATION Patient was evaluated and treated for vertigo. Patient reports an insidious onset of symptoms today.She had been painting her fireplace and doing a lot of cervical extension while doing this. She is unsure if this is what caused her symptoms. She does note her previous history of positional vertigo. We have treated her for this multiple times in the past. Patient reports her symptoms as dizziness, spinning, lightheadedness, disequilibrium and nausea. She denies any headache, neck pain or diplopia. Patient denies any tinnitus, Meniere's disease, sudden hearing loss, pressure or fullness in the ears, discharge from the ears or nose. Patient did take 2 meclizine today, but does not think that this has really helped too much. PAST MEDICAL/SURGICAL HISTORY Patient has the past medical history of vertigo. She has had positional vertigo multiple times in the past. She has rheumatoid arthritis. Cataract. History of diverticulitis. Hip enthesopathy. Eye disorder. Glaucoma. Hernia. Herniated disk. Celiac. MEDICATIONS Patient's medications according to the electronic medical record do include: Acetaminophen. Acidophilus. Probiotic. Rochelle. Aspirin. Citracal. Citrucel laxative. Ferrous sulfate. Flonase. Gabapentin. Ibuprofen. Meclizine. Restasis. Vitamin B12. Vagifem. PHYSICAL EXAMINATION We completed Hallpike-[place] testing. Patient did test positive for the left anterior canal with a latency of 5 seconds and a duration of 20 seconds and tested positive for the right posterior canal with a positive nystagmus with a latency of 5 seconds and a duration of 60 seconds. Patient will be treated for vertigo symptoms with positional vertigo, testing positive with nystagmus. Patient requires skilled physical therapy to resolve her symptoms. Ready to learn. No apparent learning barriers were identified. Learning preferences include listening. Explained diagnosis and treatment plan. Patient/Child/Caregiver expressed understanding of the content. Patient consents to physical therapy treatment. IMPRESSION/REPORT/PLAN We performed canalith repositioning procedure maneuvers for the right posterior canal, which will address both the right posterior canal and the left anterior canal. This was performed times 2 repetitions. We did initiate head shaking due to the prolonged nystagmus. Patient tolerated this well with symptom reproduction. PATIENT GOALS 1. Patient's function reporting status is G8978 with modifier of CK, with projected goal status of G8979 with modifier of CH as determined by her clinical presentation of symptoms. She requires hand-held assist for balance and has difficulty with functional activities due to high and intense symptoms.This will be achieved within 2 weeks. 2. Patient will note resolution of symptoms within 2 weeks. PLAN OF CARE DOLL WIG MAKER maneuvers and possible home program. Patient has an increased risk of falls at this time. Educated patient of her fall risk, suggested using a cane or a walker to minimize this risk or handhold assist performed by her spouse or family members. Plan to see patient for up to 4 treatment sessions over the next 2 weeks to resolve symptoms. Bianca Villalobos D.P.T./farhat Electronically Signed By: BIANCA VILLALOOBS On: 07/27/2014 11:15 AM Co-Signed By: ALBANIA VARMA RN, RADIOISOTOPE TECHNICIAN On: 07/31/2014 01:16 PM Source: [facility] MHSDOLBEYNONRADSYS Document Id: [id number] RANCE ADJUSTER documented in this encounter Plan of Treatment Not on filedocumented as of this encounter Visit Diagnoses Not on filedocumented in this encounter
--- OUTSIDE RECORDS SUMMARY | 2022-05-06 13:11 | XMS_ITS | Encounter Summary ---
:1935 Author Organization [facility] Address [address] [place] [address] Care Team Providers Name Role Phone Unavailable Primary Care Provider Unavailable Encounter Details Date Type Department Care Team Description 02/28/2014 Hospital Encounter HX [facility] Mary Varma, CYRIL, C.N.P., D. N.P. [address] [place] [address] (Wo rk) Social History Tobacco Use Types Packs/Day Years Used Date Smoking Tobacco: Never Assessed Sex Assigned at Date Recorded Not on file documented as of this encounter Last Filed Vital Signs Vital Sign Reading Time Taken Comments Blood Pressure 128/70 02/28/2014 9:25 AM CDT Pulse 74 02/28/2014 9:25 AM CDT Temperature - - Respiratory Rate 16 02/28/2014 9:25 AM CDT Oxygen Saturation - - Inhaled Oxygen Concentration - - Weight 74.8 kg (164 lb 14.5 oz) 02/28/2014 9:25 AM CDT Height 158.8 cm (5' 2.52) 02/28/2014 9:25 AM CDT Body Mass Index 29.66 02/28/2014 9:25 AM CDT documented in this encounter Medications at [...] eye daily. documented as of this encounter H&P Notes Mary Varma APRN, C.N.P. - 02/28/2014 9:20 AM CDT [id number] CHIEF COMPLAINT/REASON FOR VISIT Preop physical. HISTORY OF PRESENT ILLNESS Kathryn is a 79-year-old female who comes in today per the request of Dr. Cadena from the [facility] for preanesthetic clearance for surgery to be performed on 03/28/2014 of a blepharectomy at [facility]. PAST MEDICAL/SURGICAL HISTORY Significant for: Arthritis. Celiac disease. Herniated lumbar disk. Most recent history of rib fracture. She also has a history of diverticulitis. Has no particular cardiac or respiratory history. She also has had an esophageal dilation performed. MEDICATIONS Tylenol 325 mg by mouth as directed for pain. Vagifem 10 mcg twice weekly. Rochelle-D twice daily as needed. Flonase nasal spray, 2 puffs each nostril daily. Gabapentin 300 mg, 2 tablets at bedtime, 1 tablet at noon. Ibuprofen 600 mg on as needed basis. Meclizine 12.5 mg on an as needed basis. Omeprazole 40 mg by mouth daily. Aspirin 81 mg by mouth daily. Citracal 1 tablet twice daily. Vitamin B12, 1000 mcg daily. Restasis as directed. Cosopt ophthalmic solution as directed. Iron 325 mg by mouth daily. Multivitamin daily. ALLERGIES Gluten. Miconazole topical. Nuts. IMMUNIZATION Pneumonia shot 2006. Zoster in 2010. She has had the hepatitis A and B series. Last tetanus 2010. SYSTEMS REVIEW Patient denies any chest pain, shortness of breath. No changes in bowel or bladder habits. No current infectious symptoms. She does have a little bit weakness in her right leg, secondary to her lumbar disk surgery. She has numbness also noted in that area. She denies any changes in her bowel or bladder habits. She was having some chronic rib pain that is now resolved. She was having some issues with swallowing that is now resolved with the dilatation no current infectious symptoms. The rest of her review of systems is noted to be negative. She does have a known hiatal hernia, that has not been bothersome. A history of asthma that is completely well controlled with allergy medications. PAST MEDICAL/SURGICAL HISTORY Arthritis. Cataract. Osteopenia. Diverticulitis. Rib fracture. Glaucoma. Herniated lumbar disk. Allergic rhinitis. Celiac sprue. Atrophic vaginitis. She had a laminectomy as she had a cystocele. Hysterectomy. Tonsillectomy. SOCIAL HISTORY Patient is . She is a non-tobacco user. Denies any use of alcohol. She has grown children. Her is very helpful. FAMILY HISTORY There is no family history of any anesthesia complications or bleeding tendencies. She has a brotherwith celiac disease and father with glaucoma. VITAL SIGNS Her blood pressure is 128/70 with a pulse of 74. Her weight 74.8 kg with a height of 158.8, and a BMI of 29.6. Temperature 36.1, respiratory rate is 16, O2 SAT is 98%, and her KATHERINE risk was 1 with her neck circumference of 36. PHYSICAL EXAM <__IM_1: Exam not dictated __> DIAGNOSTICS EKG: Normal sinus rhythm. LABORATORY: Her hemoglobin remains pending. IMPRESSION/REPORT/PLAN Preoperative physical. Patient is considered medically optimal to undergo her blepharectomy. I see no anticipated complications. I will leave it to the surgeon if he feels that she should discontinue her aspirin but will have her hold her medications the morning of surgery, otherwise no changes in her medications either. Ready to learn. No apparent learning barriers were identified. Learning preferences include listening. Explained diagnosis and treatment plan. Patient/Child/Caregiver expressed understanding of the content. Mary Varma, Don.N.P./farhat Electronically Signed By: MARY VARMA RN, GEOSPATIAL ENGINEER On: 02/28/2014 04:41 PM Source: [facility] MHSDOLBEYNONRADSYS Document Id: [id number] documented in this encounter Miscellaneous Notes Miscellaneous - Madhavi Perdomo R.N. - 03/03/2014 11:36 AM CDT Thrush script Document Contains Addenda Addendum by MADHAVI PERDOMO RN on 03 March 2014 14:10:09 CDT called to pt Addendum by MARY VARMA RN, GEOSPATIAL ENGINEER on 03 March 2014 13:26:02 CDT From: MARY VARMA RN, GEOSPATIAL ENGINEER Sent: 03/03/2014 13:26:02 CDT Subject: RE:Thrush script Approved Order:nystatin (nystatin 100,000 units/mL oral suspension) 5 mL PO 4xDay to replace any previous scripts Qty: 140 mL Duration: 7 day(s) Refills: 1 Substitutions Allowed Route To Pharmacy - [facility] Signed by MARY VARMA RN, GEOSPATIAL ENGINEER 03/03/2014 13:25:55 From: MADHAVI PERDOMO RN To: MARY VARMA RN, GEOSPATIAL ENGINEER; MADHAVI PERDOMO RN; Sent: 03/03/2014 11:36:05 CDT Subject: Thrush script On hold pending signature Order:nystatin (nystatin 100,000 units/mL oral suspension) 5 mL PO 4xDay to replace any previous scripts Qty: 140 mL Duration: 7 day(s) Refills: 1 Substitutions Allowed Route To Pharmacy - [facility] Pt says oral thrush started yesterday with burning sensation in mouth, and now has white tongue. Has NOT been on antibiotics lately, and just saw you this week. Eye surgery scheduled for 7-15 Plz advise - proposed Nystatin Source: [facility] POWERCHART Document Id: [id number] Miscellaneous - Mary Varma APRN, C.N.P. - 02/28/2014 10:33 AM CDT Ambulatory Patient Summary [facility] [address] [facility] [place], [place] [id number] Visit Information Name: KATHRYN LEON [facility] Number: [id number] Current Date: 02/28/2014 10:33:17 Physicians Attending Provider: MARY VARMA RN, GEOSPATIAL ENGINEER Primary Care Provider: MARY VARMA RN, GEOSPATIAL ENGINEER KATHRYN LEON has been given the following list [...] Take Indications/Special Instructions/Comments/Notes for Patient Medication Changes/Routing acetaminophen (acetaminophen 325 mg oral tablet) See Instructions one tablet in the Am two tablets in the Evening aspirin (aspirin 81 mg oral tablet) 1 Tablet(s), Oral, every other day calcium citrate (Citracal) 1tab, two times a day cyanocobalamin (Vitamin B-12) 1,000 mcg, Oral, once a day cycloSPORINE ophthalmic (Restasis) one drop, Eyes(Both), every 12 hours dorzolamide-timolol ophthalmic (Cosopt ophthalmic solution) 1 Drops, once a day in the right eye only estradiol topical (Vagifem 10 mcg vaginal tablet) 10 mcg, Vaginal, 2 times a week Member No [id number] This is a CHANGE ferrous sulfate (ferrous sulfate 325 mg (65 mg elemental iron) oral tablet) 1 Tablet(s), Oral, once a day fexofenadine-pseudoephedrine (Rochelle-D 12 Hour 60 mg-120 mg oral tablet, extended release) 1 Tablet(s), Oral, two times a day [employer] [phone] fluticasone nasal (Flonase 0.05 mg/inh nasal spray) 2 Arvada(s), Nostrils(Both), once a day *gabapentin (gabapentin 300 mg oral capsule) 3 cap, Oral, once a day ibuprofen (ibuprofen 600 mg oral tablet) See Instructions, as needed for Pain 1 tab(s) PO three times per day with food as needed meclizine (meclizine 12.5 mg oral tablet) 1-2 tab(s), Oral, three times a day as needed for Dizziness methylcellulose (Citrucel Lax) 3 Tablet(s), Oral, once a day multivitamin (Multiple Vitamins oral tablet) 1 Tablet(s), Oral, once a day omeprazole (omeprazole 40 mg oral delayed release capsule) 1 cap, Oral, once a day * You have let us know that you are not taking this medication as listed. Please talk with your primary care provider or the health care provider who prescribed the medication as soon as possible. Stop Taking the Following Medications: Medication list as of 02-28-14 10:33 Attention: If you have any medications at home that are not on this list, DO NOT take them until youcontact your provider for clarification. Give a copy of your medication list to your primary care provider. Update your medication list any time medications or doses are changed and carry your medication list at all times in case of emergency. Electronically Signed By: MARY VARMA RN, GEOSPATIAL ENGINEER Signed On:28-FEB-2014 10:32:44 Your Allergies & Intolerances Substance Reaction Symptoms [...] pain* Active 09/05/2013 Hernia, hiatal Active 10/31/2013 Your Upcoming Appointments Date Time Location Reason Provider No Appointments found Attention: Contact your local Clinic if further appointment detail needed. Your Goals/Additional instructions: Source: [facility] POWERCHART Document Id: [id number] Miscellaneous - Mary Varma APRN, C.NOlivia - 02/28/2014 10:33 AM CDT Ambulatory Discharge Medication List [id number] [place], [place] [id number] Visit Information Name: KATHRYN LEON [facility] Number: [id number] Visit Date: 02/28/2014 10:33:14 Attending Provider: MARY VARMA RN, GEOSPATIAL ENGINEER Primary Care Provider: MARY VARMA RN, GEOSPATIAL ENGINEER KATHRYN LEON has been given the following list of medications: Your Medications It is important to take your medications as directed. Use a pill box or chart to help remind you to take your medications. Please let your doctor or nurse know if you have problems taking your medications. Medication/Strength How to Take Indications/Special Instructions/Comments/Notes for Patient Medication Changes/Routing acetaminophen (acetaminophen 325 mg oral tablet) See Instructions one tablet in the Am two tablets in the Evening aspirin (aspirin 81 mg oral tablet) 1 Tablet(s), Oral, every other day calcium citrate (Citracal) 1tab, two times a day cyanocobalamin (Vitamin B-12) 1,000 mcg, Oral, once a day cycloSPORINE ophthalmic (Restasis) one drop, Eyes(Both), every 12 hours dorzolamide-timolol ophthalmic (Cosopt ophthalmic solution) 1 Drops, once a day in the right eye only estradiol topical (Vagifem 10 mcg vaginal tablet) 10 mcg, Vaginal, 2 times a week Member No [id number] This is a CHANGE ferrous sulfate (ferrous sulfate 325 mg (65 mg elemental iron) oral tablet) 1 Tablet(s), Oral, once a day fexofenadine-pseudoephedrine (Rochelle-D 12 Hour 60 mg-120 mg oral tablet, extended release) 1 Tablet(s), Oral, two times a day [employer] [phone] fluticasone nasal (Flonase 0.05 mg/inh nasal spray) 2 Arvada(s), Nostrils(Both), once a day *gabapentin (gabapentin 300 mg oral capsule) 3 cap, Oral, once a day ibuprofen (ibuprofen 600 mg oral tablet) See Instructions, as needed for Pain 1 tab(s) PO three times per day with food as needed meclizine (meclizine 12.5 mg oral tablet) 1-2 tab(s), Oral, three times a day as needed for Dizziness methylcellulose (Citrucel Lax) 3 Tablet(s), Oral, once a day multivitamin (Multiple Vitamins oral tablet) 1 Tablet(s), Oral, once a day omeprazole (omeprazole 40 mg oral delayed release capsule) 1 cap, Oral, once a day * You have let us know that you are not taking this medication as listed. Please talk with your primary care provider or the health care provider who prescribed the medication as soon as possible. Stop Taking the Following Medications: Medication list as of 02-28-14 10:33 Attention: If you have any medications at home that are not on this list, DO NOT take them until youcontact your provider for clarification. Give a copy of your medication list to your primary care provider. Update your medication list any time medications or doses are changed and carry your medication list at all times in case of emergency. Electronically Signed By: MARY VARMA RN, GEOSPATIAL ENGINEER Signed On:28-FEB-2014 10:32:44 Additional Information: Source: [facility] POWERCHART Document Id: [id number] Miscellaneous - Sujatha Batista L.P.NDann - 02/28/2014 9:43 AM CDT Obstructive Sleep Apnea Obstructive Sleep Apnea Entered On: 02/28/2014 9:44 CDT Performed On: 02/28/2014 9:43 CDT by SUJATHA BATISTA LPN KATHERINE Screening Known Obstructive Sleep Apnea : No - NOT diagnosed with KATHERINE SUJATHA BATISTA LPN - 02/28/2014 9:43 CDT KATHERINE Assessment Do you have high blood pressure or have you been told to take medication for high blood pressure? : No Frequency of Snoring : Occasionally (4-8 times per year) Frequency of Gasping, Choking, Snorting : Never Total Number of Historical Features : 0 Neck Circumference (cm) : 36/37 Total Sleep Apnea Clinical Score Calc : 1 SUJATHA BATISTA LPN - 02/28/2014 9:43 CDT [facility] Document Id: [id number] CDT!10 Miscellaneous - Sujatha Batista L.P.N. 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 Entered On: 02/28/2014 9:31 CDT Performed On: 02/28/2014 9:25 CDT by SUJATHA BATISTA LPN Intake Height : 158.8 cm(Converted to: 5 ft 3 inch(es), 63 inch(es)) Clinic BSA : 1.82 Body Mass Index : 29.66 kg/m2 SUJATHA BATISTA LPN - 02/28/2014 9:32 CDT Chief Complaint : [facility], colonoscopy at January [facility] Temperature Core : 36.1 DegC(Converted to: 97.0 DegF) (LOW) Peripheral Pulse Rate : 74 /min Respiratory Rate : 16 /min Heart Rhythm : Regular Systolic Blood Pressure : 128 mmHg Diastolic Blood Pressure : 70 mmHg NIBP Mean : 89 mmHg BP Location : Left upper extremity Blood Pressure Cuff Size : Regular Actual Weight : 74.8 kg(Converted to: 164 lb 14 oz) Weight Source : Standing scale Dosing Weight Clinic : 74.8 kg SUJATHA BATISTA LPN - 02/28/2014 9:25 CDT General Info Information Given By : Patient Preferred Communication Mode : Verbal Languages : Gabonese SUJATHA BATISTA LPN - 02/28/2014 9:25 CDT Subjective Pain Symptoms : No SUJATHA BATISTA LPN - 02/28/2014 9:25 CDT Dependent Habits Tobacco Use/Currently Using : No Exposure to Tobacco Smoke : Care provider denies smoking in home Smoking Status : Never smoker SUJATHA BATISTA LPN - 02/28/2014 9:25 CDT Tobacco Use Grid Last Use : never SUJATHA BATISTA LPN - 02/28/2014 9:25 CDT Caffeine Use Grid Caffeine Use : Current Type : Coffee Frequency : Weekly SUJATHA BATISTA LPN - 02/28/2014 9:25 CDT Recreational Drug Use Grid Drug Use : None SUJATHA BATISTA LPN - 02/28/2014 9:25 CDT Source: [employer] Document Id: [id number] CDT!5 documented in this encounter Plan of Treatment Not on filedocumented as of this encounter Visit Diagnoses Not on filedocumented in this encounter
--- OUTSIDE RECORDS SUMMARY | 2022-05-06 13:11 | XMS_ITS | Encounter Summary ---
:[address] [facility] Address [address] [place] [address] Care Team Providers Name Role Phone Unavailable Primary Care Provider Unavailable Encounter Details Date Type Department Care Team Description 03/30/2015 Hospital Encounter HX [facility] ENT Jamie Camacho M.D. [address] [place], [place] [address] (Wo rk) Social History [...] documented as of this encounter Progress Notes Jamie Camacho M.D. - 03/30/2015 1:01 PM CDT [id number] Ms. Leon is a very pleasant 80-year-old woman. CHIEF COMPLAINT/REASON FOR VISIT Follow up hoarseness, left vocal cord mobility uncertainty. HISTORY OF PRESENT ILLNESS Ms. Leon initially presented March 15, with a 2-month history of what sounded like fairly sudden onset hoarseness. She estimated dlxw-fs-jnduaqqe severity. It seemed to start following a sinus infection while she was on vacation in [place], and she was so tired and felt crappy and could hardly stay awake. She was prescribed antibiotics and a 3-day course of steroids with some temporary improvement in her malaise. The hoarseness has persisted. After third course of antibiotics, the remainder of her symptoms are resolved. Hoarseness today she reports is improved, but her voice is not 100%. She again denies any associated ear pain, sore throat, or dysphagia. No aspiration. SYSTEMS REVIEW No fever or cough. SOCIAL HISTORY No tobacco. 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 She apparently was recommended a left eyelid surgery (query blepharoplasty). PHYSICAL EXAMINATION She appears well. Voice remains somewhat hoarse, raspy. PROCEDURE Video flexible laryngoscopy: Scope was advanced through the right naris. Normal nasal cavity. Nasopharynx normal. Tongue base, vallecula normal. Hypopharynx normal. LARYNX: The left arytenoid prolapse seems to have improved somewhat. There appears to be some tremor of the left arytenoid, supraglottis,and possibly vocal cord. The adduction is not as predictable as on the right; however, there are moments of visible full abduction. There is no visible mucosal pathology. We were unsuccessful in attempting to obtain a video of the laryngeal exam. Photographs were taken. IMPRESSION/REPORT/PLAN 1. 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 My initial concern was for a vocal cord paralysis. I question whether she may have had a temporary paralysis now with some tremor on recovery. She does, I believe, still have abnormal left vocal cord movement and I would like her to see Dr. Mosley in [place] for further evaluation and opinion. I will defer CT scanning given some mobility ofthe left chord. Consider external compression of the recurrent laryngeal nerve, also movement disorder/neurological source. 2. History of left eyelid ptosis. Jamie Camacho M.D./farhat cc: Dav Mosley M.D. [address] [address] Electronically Signed By: JAMIE CAMACHO MD On: 04/03/2015 07:39 AM Source: [facility] MHSDOLBEYNARTURSYS Document Id: [id number] documented in this encounter Miscellaneous Notes Telephone Encounter - Sujatha Santos R.N. - 04/04/2015 2:13 PM CDT *Phone Message Document Contains Addenda Addendum by BELLO WILSON RN on 12 April 2015 11:[address] here earlier this week and will see Dr. Lundberg on 04/17. (Dr. Camacho spoke with Dr. Lundberg) Modified by and Electronically Signed by: BELLO WILSON RN On: 04/12/2015 11:41 AM Addendum by SUJATHA SANTOS CMA on 05 April 2015 16:48 CDT Bello, can you please check with [place] to see if there is anyway to get her in within 2-4 weeks from now with Tamika? If not please let Dr. Camacho know and he will call down there himself Modified by and Electronically Signed by: SUJATHA SANTOS CMA On: 04/05/2015 04:48 PM From: SUJATHA SANTOS CMA ( Ears/Nose/Throat Nurse) To: JAMIE CAMACHO MD; Sent: 04/04/2015 14:13:48 CDT Subject: *Phone Message Caller is: (x ) Patient ( ) Mother ( ) Father ( ) Spouse ( ) Daughter ( ) Son ( ) Pharmacy ( ) Other: Physician: Russ Patient Reason for Call:[place] [facility] appt Message: Pt called concerned as her [facility] appt is not until May 28 and is wondering if that is an okay time frame to wait. She was expecting to get in within a week or 2 of the referral. Advice/Action: Please advise. Source used: ( ) Verbalizes understanding of [...] back cell phone number ( ) Source: [facility] POWERCHART Document Id: [id number] Telephone Encounter - Conversion, Historical Provider Ser - 04/04/2015 12:01 PM CDT Outside Referral [facility] Document Contains Addenda Addendum by JESUS ALBERTO DE LA PAZ on 10 April 2015 13:23:37 CDT Thank you for your referral.? We welcome the opportunity to be of service to your patient. We are pleased to confirm an appointment as follows: Date: 05/28/2015 Time: 8:55 am Location: [facility], 12th Floor, [facility] Department: Department of Otorhinolaryngology (ENT) Provider: Dr. Jelly Mosley? Entered by JESUS ALBERTO DE LA PAZ on 04 April 2015 12:01:19 CDT Thank you for your referral.? We received your appointment request and have referred it to Ear, Nose and Throat for review. We will send you a referral notification when we hear back from them. The following patient has a Consult to Outside Specialist [place]: order placed. Patient Name: BRIANA LEON Diagnosis: Unilateral Partial Paralysis of Vocal Cords,Partial Paralysis of Vocal Cords, Ordering Provider: JAMIE CAMACHO MD ; Original Order DT/TM: March 30, 2015 15:46:09 CDT ; Order: Consult to Outside Specialist [place] ; Order Details: Referral For: Adult Department: ENT Reason For Visit: abnormal left vocal cord movement Why Needs cannot be met : NOT FOUND Why Needs cannot be met - FH : NOT FOUND Why Needs cannot be met [facility] : Service not available at [facility] Facility : [facility] FH : NOT FOUND Appointment Type: Consult Appointment Type - FH: NOT FOUND Subspecialty Requested: head/neck Appointment Timeline: Routine (greater than 2 weeks) Schedule with Specific Provider, If Known: Tamika Appointment has been/will be made by: Outside Specialist If yes, When is appointment: NOT FOUND Arc to Process Referral : NOT FOUND Special Instructions: NOT FOUND Reason to be Sent: NOT FOUND Paresis Of Vocal Cord Unilateral Partial Source: [facility] POWERCardoz Document Id: [id number] Miscellaneous - Sujatha Santos RDannNDann - 03/30/2015 1:55 PM CDT 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/History 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/History Entered On: 03/30/2015 13:55 CDT Performed On: 03/30/2015 13:55 CDT by SUJATHA SANTOS [facility] Intake Chief Complaint : recheck throat SUJATHA SANTOS [facility] - 03/30/2015 13:55 CDT General Info Information Given By : Patient Languages : Latvian Is Patient Female and 13-50 no hysterectomy : No SUJATHA SANTOS CMA - 03/30/2015 13:55 CDT Subjective Pain Symptoms : SUJATHA Shah CMA - 03/30/2015 13:55 CDT Dependent Habits Tobacco Use/Currently Using : No Exposure to Tobacco Smoke : Care provider denies smoking in home, Other: never Smoking Status : Never smoker SUJATHA SANTOS CMA - 03/30/2015 13:55 CDT Caffeine Use Grid Caffeine Use : Current Type : Coffee Frequency : Weekly SUJATHA SANTOS CMA - 03/30/2015 13:55 CDT Recreational Drug Use Grid Drug Use : None SUJATHA SANTOS [facility] - 03/30/2015 13:55 CDT [facility] Document Id: [id number] CDT!21 documented in this encounter Plan of Treatment Not on filedocumented as of this encounter Visit Diagnoses Not on filedocumented in this encounter
--- OUTSIDE RECORDS SUMMARY | 2022-05-06 13:11 | XMS_ITS | Encounter Summary ---
:1935 Author Organization [facility] Address [address] [place] [address] Care Team Providers Name Role Phone Unavailable Primary Care Provider Unavailable Encounter Details Date Type Department Care Team Description 07/10/2015 Hospital Encounter HX [facility] Mary Varma, CYRIL, C.N.P., D. N.P. [address] [place] [address] (Wo rk) Social History Tobacco Use Types Packs/Day Years Used Date Smoking Tobacco: Never Assessed Sex Assigned at Date Recorded Not on file documented as of this encounter Last Filed Vital Signs Vital Sign Reading Time Taken Comments Blood Pressure 126/61 07/10/2015 9:50 AM CDT Pulse 70 07/10/2015 9:50 AM CDT Temperature - - Respiratory Rate 16 07/10/2015 9:50 AM CDT Oxygen Saturation - - Inhaled Oxygen Concentration - - Weight 77.7 kg (171 lb 4.8 oz) 07/10/2015 9:50 AM CDT Height - - Body Mass Index 31.52 11/20/2014 9:27 AM CDT documented in this encounter Medications [...] of this encounter Miscellaneous Notes Miscellaneous - Kamini Olivarez R.N. 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 LEAD faxed to [employer] order Addendum by HUNTER SEQUEIRA MD on 18 October 2015 12:13:31 [employer]ET RESEARCH LEAD From: HUNTER SEQUEIRA MD Sent: 10/18/2015 12:13:31 MARKET RESEARCH LEAD Subject: RE:FW: Eleanor Approved Order:fexofenadine-pseudoephedrine (Rochelle-D 12 Hour 60 mg-120 mg oral tablet, extended release) 1 tab(s) PO 2xDay Qty: 180 tab(s) Refills: 3 Substitutions Allowed Print - [id number] [facility] [phone] Signed by HUNTER SEQUEIRA MD 10/18/2015 12:13:24 Addendum by MADHAVI PERDOMO RN on 18 October 2015 07:54:35 MARKET RESEARCH LEAD From: MADHAVI PERDOMO RN To: HUNTER SEQUEIRA MD; Sent: 10/18/2015 07:54:35 MARKET RESEARCH LEAD Subject: FW: [place]le-Suhas [facility] review and address, [facility] Addendum by KAMINI OLIVAREZ RN on 16 October 2015 10:36:19 MARKET RESEARCH LEAD Fax to [employer] [phone] From: KAMINI OLIVAREZ RN To: HUNTER SEQUEIRA MD; KAMINI OLIVAREZ RN; MADHAVI PERDOMO RN; Sent: 10/16/2015 10:34:48 MARKET RESEARCH LEAD Subject: Rochelle-D On hold pending signature Order:fexofenadine-pseudoephedrine (Rochelle-D 12 Hour 60 mg-120 mg oral tablet, extended release) 1 tab(s) PO 2xDay Qty: 180 tab(s) Refills: 3 Substitutions Allowed Print - [id number] [employer] [phone] Pt. has been taking and gets refilled yearly. Source: [facility] POWERQranio Document Id: [id number] Electronically signed by Conversion, [facility] Sausage Meat Trimmer [id number] at 02/09/2017 6:46 AM CDT Miscellaneous - Mary Varma, CYRIL, C.N.P. - 07/16/2015 8:26 AM CST Normal Results Letter 16 July 2015 KATHRYN LEON [address] [facility] [phone] Dear KATHRYN LEON, Your results from the following diagnostic test(s) are normal, with exception to you liver enzymes being a bit higher. At this time, we will need to monitor and recheck these levels again in 1 month. Please avoid Tylenol and alcohol use until then. Please follow up with us as we discussed during your visit or sooner if you have any concerns. If you have questions or concerns, please do not hesitate to call our office. Result Name Current Result Previous Result Normal Range Sodium Lvl (mM/L) 136.8 07/10/2015 138.2 10/02/2014 135.0 - 145.0 Potassium Lvl (mmol/L) 3.9 07/10/2015 4.3 10/02/2014 3.6 - 4.8 Chloride (mmol/L) 100 07/10/2015 102 10/02/2014 98 - 107 CO2 (mmol/L) 27.3 07/10/2015 (H) 29.1 10/02/2014 23.0 - 29.0 AGAP (mmol/L) 13 07/10/2015 11 10/02/2014 10 - 20 Glucose Lvl (mg/dL) (L) 69 07/10/2015 72 10/02/2014 70 - 139 Creatinine (mg/dL) 0.89 07/10/2015 1.00 04/11/2015 0.60 - 1.30 EGFR (MDRD) (mL/min/1.73m2) >60 07/10/2015 (L) 54 04/11/2015 >=60 - EGFR (MDRD) (mL/min/1.73m2) >60 07/10/2015 >60 04/11/2015 >=60 - BUN (mg/dL) 12 07/10/2015 (H) 26 10/02/2014 7 - 18 Calcium Lvl (mg/dL) 9.1 07/10/2015 10.1 10/02/2014 8.8 - 10.2 AST (unit/L) (H) 72 07/10/2015 (H) 47 11/20/2014 8 - 43 ALT (unit/L) (H) 118 07/10/2015 (H) 82 11/20/2014 7 - 45 GGT (U/L) (H) 120 07/10/2015 (H) 61 11/20/2014 6 - 29 TSH (mIU/L) 2.34 07/10/2015 2.13 10/02/2014 0.27 - 4.20 PT (second(s)) 9.2 07/10/2015 9.5 10/06/2014 8.7 - 11.8 INR 0.94 07/10/2015 0.93 10/06/2014 0.90 - 1.16 RF Qual-Olivier (IntU/ml) <15 07/10/2015 0<15 - Sincerely, MARY VARMA [id number] [address] Electronic Signature Electronically Signed By: MARY VARMA RN, HISTORIC SITES SUPERVISOR On: 16 July 2015 This document has images extracted. 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 Entered On: 07/10/2015 10:00 CDT Performed On: 07/10/2015 9:50 CDT by SUJATHA BATISTA LPN Intake Temperature Core : 35.9 DegC(Converted to: 96.6 DegF) (LOW) Peripheral Pulse Rate : 70 /min Respiratory Rate : 16 /min Heart Rhythm : Regular Systolic Blood Pressure : 126 mmHg Diastolic Blood Pressure : 61 mmHg NIBP Mean : 83 mmHg BP Location : Left upper extremity Blood Pressure Cuff Size : Regular SpO2 : 99 % Oxygen Therapy : Room air SUJATHA BATISTA LPN - 07/10/2015 10:04 CDT Chief Complaint : Follow up on liver, Lost voice in january seen in urgent care has had abo treatment/Prednisone saw Dr. Hays Seen in [place] inflammed vocal cord. Actual Weight : 77.7 kg(Converted to: 171 lb 5 oz) Weight Source : Standing scale Dosing Weight Clinic : 77.7 kg SUJATHA BATISTA LPN - 07/10/2015 9:50 CDT General Info Information Given By : Patient Preferred Communication Mode : Verbal Languages : [place] Is Patient Female and 13-50 no hysterectomy : No SUJATHA BATISTA LPN - 07/10/2015 9:50 CDT Subjective Pain Symptoms : No SUJATHA BATISTA LPN - 07/10/2015 9:50 CDT Dependent Habits Tobacco Use/Currently Using : No Exposure to Tobacco Smoke : Care provider denies smoking in home, Other: never Smoking Status : Never smoker Alcohol Use : Yes SJUATHA BATISTA LPN - 07/10/2015 9:50 CDT Caffeine Use Grid Caffeine Use : Current Type : Coffee Frequency : Weekly SUJATHA BATISTA LPN - 07/10/2015 9:50 CDT Recreational Drug Use Grid Drug Use : None SUJATHA BATISTA LPN - 07/10/2015 9:50 CDT Source: [facility] POWERCHART Document Id: [id number] CDT!13 documented in this encounter Plan of Treatment Not on filedocumented as of this encounter Procedures Procedure Name Priority Date/Time Associated Comments Diagnosis PROTHROMBIN TIME (PT), P Routine 07/10/2015 10:54 Results for this AM CDT procedure are i n the results section. RHEUMATOID FACTOR, S/P Routine 07/10/2015 10:54 R esults for this AM CDT procedure are i n the results section. ALANINE AMINOTRANSFERASE Routine 07/10/2015 10:54 Results for this (ALT), S/P AM CDT procedure are i n the results section. ASPARTATE Routine 07/10/2015 10:54 Results for this AMINOTRANSFERASE (AST), AM CDT proc edure are in S/P the results section. THYROID-STIMULATING Routine 07/10/2015 10:54 Resu lts for this HORMONE-SENSITIVE AM CDT procedure are in (S-TSH) the results section. GAMMA-GLUTAMYLTRANSFERAS Routine 07/10/2015 10:54 Results for this E (GGT), S/P AM CDT procedure are i n the results section. BASIC METABOLIC PANEL, Routine 07/10/2015 10:54 R esults for this S/P AM CDT procedure are i n the results section. documented in this encounter Results PT (Prothrombin Time) with INR (07/10/2015 10:54 AM CDT) Analysis Performed At Patho logist Time Signature INR 0.94 0.90 - 1.16 POWERCHART Prothrombin 9.2 8.7 - 11.8 POWERCHART Time, P SECONDS Specimen (Source) Anatomical Collection Method Collection Time Re ceived Time Location / / Volume Laterality Blood 07/10/2015 10:54 AM CDT Mary Varma APRN, C.N.P., D.N.P. LAB BLOOD ADD-ON Performing Organization Address City/State/ZIP Code Phon e Number POWERCHART Thyroid-Stimulating Hormone-Sensitive (s-TSH) (07/10/2015 10:54 AM CDT) P athologist Signature TSH 2.34 0.27 - 4.20 POWERCHART (Thyrotropin) MIUL Specimen (Source) Anatomical Collection Method Collection Time Re ceived Time Location / / Volume Laterality Blood 07/10/2015 10:54 AM CDT Esperanza Schmidt APRNNOlivia, D.N.P. LAB BLOOD ADD-ON Performing Organization Address City/State/ZIP Code Phon e Number POWERCHART Rheumatoid Factor (07/10/2015 10:54 AM CDT) athologist Signature Rheumatoid <15 <15 INTUML POWERCHART Factor, S Comment: Test Performed by: [place] [address] Community Advocate: Mark Pittman II, M.D., Ph.D. Specimen (Source) Anatomical Collection Method Collection Time Re ceived Time Location / / Volume Laterality Blood 07/10/2015 10:54 AM CDT Esperanza Schmidt APRNN.Abelino., D.N.P. LAB BLOOD ADD-ON Performing Organization Address City/[facility]/ZIP Code Phon e Number POWERCHART (ABNORMAL) BMP (Basic Metabolic Panel) (07/10/2015 10:54 AM CDT) athologist Signature Anion Gap 13 10 - 20 POWERCHART MMOLL BUN (Blood Urea 12 7 - 18 POWERCHART Nitrogen), S MGDL Chloride, S 100 98 - 107 POWERCHART MMOLL CO2 Total 27.3 23.0 - POWERCHART 29.0 MMOLL Creatinine 0.89 0.60 - POWERCHART 1.30 MGDL Glucose 69 (L) 70 - 139 POWERCHART MGDL Calcium, Total, 9.1 8.8 - 10.2 POWERCHART S MGDL Sodium, S 136.8 135.0 - POWERCHART 145.0 MML Potassium, S 3.9 3.6 - 4.8 POWERCHART MMOLL HXeGFR (MDRD) >60 >=60 POWERCHART [id number] eGFR >60 >=60 POWERCHART Black/ [id number] [place] Specimen (Source) Anatomical Collection Method Collection Time Re ceived Time Location / / Volume Laterality Blood 07/10/2015 10:54 AM CDT Angy Schmidt APRN.N.PDann, D.N.P. LAB BLOOD ADD-ON Performing Organization Address City/State/ZIP Code Phon e Number POWERCHART (ABNORMAL) AST (Aspartate Aminotransferase) (07/10/2015 10:54 AM CDT) [facility] gist Method Time Signature Aspartate 72 (H) 8 - 43 POWERCHART Aminotransferase UNITL (AST), S Specimen (Source) Anatomical Collection Method Collection Time Re ceived Time Location / / Volume Laterality Blood 07/10/2015 10:54 AM CDT Mary Varma APRN C.N.P., D.N.P. LAB BLOOD ADD-ON Performing Organization Address City/[facility] Code Phon e Number POWERCHART (ABNORMAL) ALT (Alanine Aminotransferase) (07/10/2015 10:54 AM CDT) athologist Signature Alanine 118 (H) 7 - 45 POWERCHART Amniotransfera UNITL se, LD Specimen (Source) Anatomical Collection Method Collection Time Re ceived Time Location / / Volume Laterality Blood 07/10/2015 10:54 AM CDT Mary Varma APRN C.N.P., D.N.P. LAB BLOOD ADD-ON Performing Organization Address [facility] Phon e Number POWERCHART (ABNORMAL) GGT (Gamma-Glutamyltransferase) (07/10/2015 10:54 AM CDT) Component Value Ref Test Analysis Performed At [facility] gist Range Method Time Signature Gamma 120 (H) 6 - 29 POWERCHART Glutamyltransferase UL (GGT), S Specimen (Source) Anatomical Collection Method Collection Time Re ceived Time Location / / Volume Laterality Blood 07/10/2015 10:54 AM CDT Mary Varma APRN, C.N.P., D.N.P. LAB BLOOD ADD-ON Performing Organization Address City/[facility] Code Phon e Number POWERCHART documented in this encounter Visit Diagnoses Not on filedocumented in this encounter
--- OUTSIDE RECORDS SUMMARY | 2022-05-06 13:11 | XMS_ITS | Encounter Summary ---
:1935 Author Organization [facility] Address [address] [place] [address] Care Team Providers Name Role Phone Unavailable Primary Care Provider Unavailable Encounter Details Date Type Department Care Team Description 11/20/2014 Hospital Encounter HX [facility] Mary Varma, CYRIL, C.N.P., D. N.P. [address] [place] [phone] (Wo rk) Social History Tobacco Use Types Packs/Day Years Used Date Smoking Tobacco: Never Assessed Sex Assigned at Date Recorded Not on file documented as of this encounter Last Filed Vital Signs Vital Sign Reading Time Taken Comments Blood Pressure 130/52 11/20/2014 9:27 AM CDT Pulse 74 11/20/2014 9:27 AM CDT Temperature - - Respiratory Rate 16 11/20/2014 9:27 AM CDT Oxygen Saturation - - Inhaled Oxygen Concentration - - Weight 74.1 kg (163 lb 5.8 oz) 11/20/2014 9:27 AM CDT Height 157 cm (5' 1.81) 11/20/2014 9:27 AM CDT Body Mass Index 30.06 11/20/2014 9:27 AM CDT documented in this [...] as of this encounter Progress Notes Mary Varma, CYRIL, C.N.P. - 11/20/2014 9:23 AM CDT [id number] CHIEF COMPLAINT/REASON FOR VISIT Followup of elevated liver enzymes. HISTORY OF PRESENT ILLNESS Kathryn is a very pleasant 79-year-old female who comes in today for followup of her elevated liver enzymes. We had her discontinue the use of her Tylenol completely and we will repeat those today. On herworkup in September she did have a pretty thorough workup, and noted to have all markers other than her GGT, her ALT and AST being elevated. Ultrasound shows steatohepatitis and she did not have an FRANSISCA done at that time. Patient states that overall she has been feeling well and has no other particular concerns. She otherwise feels asymptomatic. MEDICATIONS Please see the EMR for details. ALLERGIES Glutens, metronidazole topical and nuts. SYSTEMS REVIEW Patient denies any fevers, chills, changes in bowel or bladder habits and no GI symptoms. VITAL SIGNS Please see the EMR. PHYSICAL EXAMINATION GENERAL: Patient appears nondistressed. HEENT: Unremarkable. HEART: Regular rate and rhythm. LUNGS: Clear to auscultation. ABDOMEN: Her bowel sounds positive x4 quadrants. She does have some tenderness in her right as well as her left lower quadrant to palpation but otherwise no particular organomegaly and I am unable to appreciate any hepatosplenomegaly. IMPRESSION/REPORT/PLAN 1. Elevated liver enzymes. We will repeat her ALT, AST and her GTT at this time. I will write her with those results. I will have her continue off of the Tylenol. 2. With the abdominal discomfort that she had, I do not feel any further workup is necessary at thistime. Patient agrees with that plan. Ready to learn. No apparent learning barriers were identified. Learning preferences include listening. Explained diagnosis and treatment plan. Patient/Child/Caregiver expressed understanding of the content. Aakash Quiroga/farhat Electronically Signed By: MARY VARMA RN, RUBBER ENGRAVER On: 11/27/2014 04:40 PM Source: [facility] MHSDOLBEYNONRADSYS Document Id: [id number] documented in this encounter Miscellaneous Notes Miscellaneous - Madhavi Perdomo R.N. - 01/09/2015 1:41 PM CDT Vagifem Document Contains Addenda Addendum by MADHAVI PERDOMO RN on 10 January 2015 15:08:11 CDT noted Addendum by MARY VARMA RN, RUBBER ENGRAVER on 10 January 2015 15:02:38 CDT From: MARY VARMA RN, RUBBER ENGRAVER Sent: 01/10/2015 15:02:38 CDT Subject: RE:Vagifem Approved Order:estradiol topical (Vagifem 10 mcg vaginal tablet) 10 mcg Vaginal 2xWeek Member No [id number] Qty: 26 tab(s) Refills: 2 Substitutions Allowed Route To Pharmacy - [facility] Signed by MARY VARMA RN, IVANA 01/10/2015 15:02:33 From: MADHAVI PERDOMO RN To: MARY VARMA RN, RUBBER ENGRAVER; MADHAVI PERDOMO RN; Sent: 01/09/2015 13:41:20 CDT Subject: Vagifem On hold pending signature Order:estradiol topical (Vagifem 10 mcg vaginal tablet) 10 mcg Vaginal 2xWeek Member No [id number] Qty: 26 tab(s) Refills: 2 Substitutions Allowed Route To Pharmacy - [facility] Protocol? Source: [facility] POWERCHART Document Id: [id number] Electronically signed by Conversion, [facility] Overhead Irrigator [id number] at 02/09/2017 6:33 PM CDT Miscellaneous - Mary Varma APRN, C.N.P. - 11/21/2014 5:06 PM CDT Normal Results Letter 21 November 2014 KATHRYN LEON [address] [place] [phone] Dear KATHRYN LEON, I am pleased to report that your results from the following liver test(s) are improved. Please follow up with us as we discussed during your visit or sooner if you have any concerns. If you have questions or concerns, please do not hesitate to call our office. Result Name Current Result Previous Result Normal Range AST (unit/L) (H) 47 11/20/2014 (H) 52 10/02/2014 8 - 43 ALT (unit/L) (H) 82 11/20/2014 (H) 93 10/02/2014 7 - 45 GGT (U/L) (H) 61 11/20/2014 (H) 119 10/06/2014 6 - 29 Sincerely, MARY VARMA [address] [place] [address] [place] [address] Electronic Signature Electronically Signed By: MARY VARMA RN, RUBBER ENGRAVER On: 21 November 2014 This document has images extracted. Source: [facility] POWERCHART Document Id: [id number] Electronically signed by Conversion, [facility] Overhead Irrigator [id number] at 02/09/2017 6:33 PM CDT Miscellaneous - Mary Varma APRN, C.N.P. - 11/20/2014 10:11 AM CDT Ambulatory Patient Summary [facility] [address] [place], [place] [address] [phone] Visit Information Name: KATHRYN LEON [facility] Number: [id number] Current Date: 11/20/2014 10:11:55 Physicians Attending Provider: MARY VARMA RN, RUBBER ENGRAVER Primary Care Provider: MARY VARMA RN, RUBBER ENGRAVER KATHRYN LEON has been given the following [...] Vaginal, 2 times a week Member No [id number] ferrous sulfate (ferrous sulfate 325 mg (65 mg elemental iron) oral tablet) 1 Tablet(s), Oral, once a day fexofenadine-pseudoephedrine (Rochelle-D 12 Hour 60 mg-120 mg oral tablet, extended release) 1 Tablet(s), Oral, two times a day [employer] [phone] fluticasone nasal (Flonase 0.05 mg/inh nasal spray) 2 Tekoa(s), Nostrils(Both), once a day gabapentin (gabapentin 300 [...] capsule) 1 cap, Oral, once a day Stop Taking the Following Medications: Medication list as of 11-20-14 10:11 Attention: If you have any medications at [...] emergency. Electronically Signed By: MARY VARMA RN, RUBBER ENGRAVER Signed On:20-NOV-2014 10:11:00 Your Allergies & Intolerances Substance Reaction Symptoms [...] appointment detail needed. Your Goals/Additional instructions: Source: [facility] POWERCHART Document Id: [id number] Miscellaneous - Mary Varma APRN, C.N.P. - 11/20/2014 10:11 AM CDT Ambulatory Discharge Medication List [address] [phone] Visit Information Name: KATHRYN LEON [facility] Number: [id number] Visit Date: 11/20/2014 10:11:53 Attending Provider: MARY VARMA RN, RUBBER ENGRAVER Primary Care Provider: MARY VARMA RN, RUBBER ENGRAVER KATHRYN LEON has been given the following [...] Vaginal, 2 times a week Member No [id number] ferrous sulfate (ferrous sulfate 325 mg (65 mg elemental iron) oral tablet) 1 Tablet(s), Oral, once a day fexofenadine-pseudoephedrine (Rochelle-D 12 Hour 60 mg-120 mg oral tablet, extended release) 1 Tablet(s), Oral, two times a day [employer] [phone] fluticasone nasal (Flonase 0.05 mg/inh nasal spray) 2 Tekoa(s), Nostrils(Both), once a day gabapentin (gabapentin 300 [...] capsule) 1 cap, Oral, once a day Stop Taking the Following Medications: Medication list as of 11-20-14 10:11 Attention: If you have any medications at [...] emergency. Electronically Signed By: MARY VARMA RN, RUBBER ENGRAVER Signed On:20-NOV-2014 10:11:00 Additional Information: Source: [facility] POWERCHART Document Id: [id number] Miscellaneous - Sujatha Batista L.P.N. - 11/20/2014 9:27 AM CDT Adult Food Demonstrator Intake/History Adult Food Demonstrator Intake/History Entered On: 11/20/2014 9:31 CDT Performed On: 11/20/2014 9:27 CDT by SUJATHA BATISTA LPN Intake Chief Complaint : Follow up per provider request liver tests Temperature Core : 35.8 DegC(Converted to: 96.4 DegF) (LOW) Peripheral Pulse Rate : 74 /min Respiratory Rate : 16 /min Heart Rhythm : Regular Systolic Blood Pressure : 130 mmHg Diastolic Blood Pressure : 52 mmHg NIBP Mean : 78 mmHg BP Location : Left upper extremity Blood Pressure Cuff Size : Regular SpO2 : 99 % Oxygen Therapy : Room air Height : 157 cm(Converted to: 5 ft 2 inch(es), 62 inch(es)) Actual Weight : 74.1 kg(Converted to: 163 lb 6 oz) Weight Source : Standing scale Dosing Weight Clinic : 74.1 kg Clinic BSA : 1.8 Body Mass Index : 30.06 kg/m2 SUJATHA BATISTA LPN - 11/20/2014 9:27 CDT General Info Information Given By : Patient Preferred Communication Mode : Verbal Languages : Albanian Is Patient Female and 13-50 no hysterectomy : No SUJATHA BATISTA LPN - 11/20/2014 9:27 CDT Subjective Pain Symptoms : No SUJATHA BATISTA LPN - 11/20/2014 9:27 CDT Dependent Habits Tobacco Use/Currently Using : No Exposure to Tobacco Smoke : Care provider denies smoking in home Smoking Status : Never smoker SUJATHA BATISTA LPN - 11/20/2014 9:27 CDT Tobacco Use Grid Last Use : never SUJATHA BATISTA [facility] - 11/20/2014 9:27 CDT Alcohol Use : Yes SUJATHA BATISTA [facility] - 11/20/2014 9:27 CDT Caffeine Use Grid Caffeine Use : Current Type : Coffee Frequency : Weekly SUJATHA BATISTA [employer] - 11/20/2014 9:27 CDT Recreational Drug Use Grid Drug Use : None SUJATHA BATISTA [facility] - 11/20/2014 9:27 CDT ID Screen Drug Resistant Organism : No Travel Within Last 21 Days : No Contact with someone with Ebola : No SUJATHA BATISTA [facility] - 11/20/2014 9:27 CDT [facility] POWER[facility] Document Id: [id number] CDT!47 documented in this encounter Plan of Treatment Not on filedocumented as of this encounter Procedures Procedure Name Priority Date/Time Associated Comments Diagnosis ANTINUCLEAR ABS (FRANSISCA), Routine 11/20/2014 10:20 R esults for this HEP-2 SUBSTRATE, S AM CDT procedure are in the results section. ANTINUCLEAR ABS (FRANSISCA), S Routine 11/20/2014 10:20 Results for this AM CDT procedure are i n the results section. ALANINE AMINOTRANSFERASE Routine 11/20/2014 10:20 Results for this (ALT), S/P AM CDT procedure are i n the results section. ASPARTATE Routine 11/20/2014 10:20 Results for this AMINOTRANSFERASE (AST), AM CDT proc edure are in S/P the results section. GAMMA-GLUTAMYLTRANSFERAS Routine 11/20/2014 10:20 Results for this E (GGT), S/P AM CDT procedure are i n the results section. documented in this encounter Results (ABNORMAL) FRANSISCA (Antinuclear Antibodies) (11/20/2014 10:20 AM CDT) Analysis Performed At Patho logist Time Signature FRANSISCA Titer 1 1:320 (H) POWERCHART FRANSISCA Pattern 1 Speckled POWERCHART Comment: The Speckled pattern is associated with antibodies to ribonucleoprotein (PERFUME AND TOILET WATER MAKER), Sm, SSA, SSB, o r Scl-70. ??This pattern is seen most frequently in syste von lupus erythematosus (SLE), scleroderma, Sjogre n's syndrome, rheumatoid arthritis and other mixed con nective tissue disease. FRANSISCA Titer 2 1:80 POWERCHART HXANA Patt2-Olivier Homogeneous POWERCHART Comment: The Homogeneous pattern is associated wi th antibodies to double-stranded DNA, histones, or DNP (D NA-histone complex). ??This pattern is seen most fr equently in systemic lupus erythematosus (SLE) and drug-induc ed lupus. Test Performed by: [place] [address] Deep Fat Cook Fry: Abelino Tejada Specimen Anatomical Collection Method Collection Time Receive d Time (Source) Location / / Volume Laterality Blood 11/20/2014 10:20 11/21/2014 8:58 AM CDT PM CDT Historical Provider LAB BLOOD ADD-ON Performing Organization Address [facility] Code Phon e Number POWERCHART (ABNORMAL) GGT (Gamma-Glutamyltransferase) (11/20/2014 10:20 AM CDT) Component Value Ref Test Analysis Performed At Patholo gist Range Method Time Signature Gamma 61 (H) 6 - 29 POWERCHART Glutamyltransferase UL (GGT), S Specimen (Source) Anatomical Collection Method Collection Time Re ceived Time Location / / Volume Laterality Blood 11/20/2014 10:20 AM CDT Mary Vrama APRN, C.N.P., D.N.P. LAB BLOOD ADD-ON Performing Organization Address [facility] Code Phon e Number POWERCHART FRANSISCA (Antinuclear Antibodies), HEp-2 Substrate (11/20/2014 10:20 AM CDT) P athologist Signature HXANA Hep-2 Positive <1:40 POWERCHART [place] (Negative) Comment: Test Performed by: [facility] [address] [address] Deep Fat Cook Fry: Abelino Tejada Specimen (Source) Anatomical Collection Method Collection Time Re ceived Time Location / / Volume Laterality Blood 11/20/2014 10:20 AM CDT Mary Varma APRN C.N.P., D.N.P. LAB BLOOD NON ADD-O N Performing Organization Address City/State/ZIP Code Phon e Number POWERCHART (ABNORMAL) AST (Aspartate Aminotransferase) (11/20/2014 10:20 AM CDT) Patholo gist Method Time Signature Aspartate 47 (H) 8 - 43 POWERCHART Aminotransferase UNITL (AST), S Specimen (Source) Anatomical Collection Method Collection Time Re ceived Time Location / / Volume Laterality Blood 11/20/2014 10:20 AM CDT Mary Varma APRN C.N.P., D.N.P. LAB BLOOD ADD-ON Performing Organization Address City/State/[facility] Phon e Number POWERCHART (ABNORMAL) ALT (Alanine Aminotransferase) (11/20/2014 10:20 AM CDT) P athologist Signature Alanine 82 (H) 7 - 45 POWERCHART Amniotransferas UNITL e, LD Specimen (Source) Anatomical Collection Method Collection Time Re ceived Time Location / / Volume Laterality Blood 11/20/2014 10:20 AM CDT Mary Varma APRN, C.N.P., D.N.P. LAB BLOOD ADD-ON Performing Organization Address City/State/[facility] Code Phon e Number POWERCHART documented in this encounter Visit Diagnoses Not on filedocumented in this encounter
--- OUTSIDE RECORDS SUMMARY | 2022-05-06 13:11 | XMS_ITS | Encounter Summary ---
:1935 Author Organization [facility] Address [address] [place] [address] Care Team Providers Name Role Phone Unavailable Primary Care Provider Unavailable Encounter Details Date Type Department Care Team Description 07/12/2015 Hospital Encounter HX [facility] [place] Varma, CYRIL, C.N.P., D. N.P. [address] [place] [phone] (Wo rk) Social History Tobacco Use [...] documented as of this encounter Progress Notes [place] Varma APRN, C.N.P. - 07/12/2015 11:45 AM CDT [id number] CHIEF COMPLAINT/REASON FOR VISIT Multiple issues. Patient wants follow up of her liver, she has lost her voice as seen in Urgent Care, seeing Dr. Solano and has inflamed vocal cords just wants a recheck. MEDICATIONS Patient is on: Rochelle D. Bactroban. Citracal. Iron. Flonase nasal spray. Gabapentin. Ibuprofen. Meclizine. Omeprazole. Restasis. Vagifem. Vitamin B12. ALLERGIES Glutens, miconazole and nuts. SYSTEMS REVIEW The patient denies any abdominal pain, chest pain, shortness of breath. She does have weakness of her voice and has been doing vocal exercises for that. She has personal history of steatohepatitis and patient has no current symptoms. She continues to have some rib pain. Gabapentin has been helpful forthat. She continues to have some arthritic pain. Also has concerns that her feet are cold all the time. She has known history of diverticulitis of her intestine but has not had any recent problems withthat. No current infectious symptoms. PAST MEDICAL/SURGICAL HISTORY Please see the EMR for those details. SOCIAL HISTORY Patient is a non-tobacco and occasional to rare use of alcohol. PHYSICAL EXAMINATION VITAL SIGNS: Her blood pressure is 126/61 with a pulse of 70. GENERAL: Patient appears nondistressed. SKIN: Warm and dry. HEENT: Completely unremarkable. VESSELS: Carotids with normal upstrokes. No bruits. HEART: Regular rate and rhythm. LUNGS: Clear to auscultation. ABDOMEN: Soft. No organomegaly. EXTREMITIES: Without any edema. IMPRESSION/REPORT/PLAN 1. Steatohepatitis with known abnormal liver function tests. I will go ahead and repeat those today. 2. Arthritis. Patient questions whether she has rheumatoid arthritis as she is getting more nodules on her hands and more pain. She also has a cold feet and was a little worried about her circulation. 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 She had 3 different antibiotic courses as well asprednisone followed up with ENT and currently they are just doing vocal exercises which has been helpful. 4. History of diverticulitis. The patient also needs her flu shot. Today will go ahead and obtain laboratory studies including AST, ALT, basic metabolic panel, GGT, ProTime, rheumatoid factor, and TSH. Also, I refilled her Bactroban that she uses rarely when she has breakouts of impetigo. We will give her flu vaccine. We are goingto give her half now and half later as she has significant reactions to the flu shot but does do well when it is broken up. We did give her pneumonia shot today. I will write her with those results. Ready to learn. No apparent learning barriers were identified. Learning preferences include listening. Explained diagnosis and treatment plan. Patient/Child/Caregiver expressed understanding of the content. Aakash Quiroga/farhat Electronically Signed By: ALBANIA VARMA RN, [facility] On: 07/17/2015 04:49 PM Source: [facility] MHSDOLBEYNONRADSYS Document Id: [id number] ITATIVE FIELD COORDINATOR documented in this encounter Miscellaneous Notes Miscellaneous - Linnette Whittaker - 11/22/2015 10:45 AM CST Flonase Refill Document Contains Addenda Addendum by LINNETTE WHITTAKER on November 22, 2015 13:51:51 QUALITATIVE FIELD COORDINATOR noted Addendum by HUNTER SEQUEIRA MD on November 22, 2015 12:45:29 QUALITATIVE FIELD COORDINATOR From: HUNTER SEQUEIRA MD Sent: 11/22/2015 12:45:29 QUALITATIVE FIELD COORDINATOR Subject: RE:Flonase Refill Approved Order:fluticasone nasal (Flonase 50 mcg/inh nasal spray) 2 spray(s) Nostrils(Both) Daily Qty: 3 each Refills: 1 Route To Pharmacy - [facility] Signed by HUNTER SEQUEIRA MD 11/22/2015 12:45:23 From: LINNETTE WHITTAKER To: HUNTER SEQUEIRA MD; LINNETTE WHITTAKER; Sent: 11/22/2015 10:45:48 QUALITATIVE FIELD COORDINATOR Subject: Flonase Refill On hold pending signature Order:fluticasone nasal (Flonase 50 mcg/inh nasal spray) 2 spray(s) Nostrils(Both) Daily Qty: 3 each Refills: 1 Route To Pharmacy - [facility] LF 05/04/15 #3 1 refill 07/12/15 wInge Hernandez Source: [facility] POWERCHART Document Id: [id number] Electronically signed by Conversion, [facility] Field Representatives Director [id number] at 02/09/2017 6:46 AM CDT documented in this encounter Plan of Treatment Not on filedocumented as of this encounter Visit Diagnoses Not on filedocumented in this encounter
--- OUTSIDE RECORDS SUMMARY | 2022-05-06 13:11 | XMS_ITS | Encounter Summary ---
:1935 Author Organization [facility] Address [address] [place] [address] Care Team Providers Name Role Phone Unavailable Primary Care Provider Unavailable Encounter Details Date Type Department Care Team Description 03/01/2014 Hospital Encounter [facility] [place] Varma, SATINDER RN, C.N.P., D.N.P. [address] [phone] (Wo rk) Social History Tobacco Use [...] of this encounter Miscellaneous Notes Miscellaneous - [place] Varma APRN, C.N.P. - 03/01/2014 5:52 PM CDT Normal Results Letter 01 March 2014 BRIANA LEON [address] [facility] [address] [place] [phone] Dear BRIANA LEON, I am pleased to report that your results from the following hemoglobin test is normal. If you have questions or concerns, please do not hesitate to call our office. Result Name Current Result Previous Result Normal Range Hgb (g/dL) 13.2 03/01/2014 12.3 09/05/2013 12.0 - 15.5 Sincerely, ALBANIA VARMA [address] [facility] [place] [address] Electronic Signature Electronically Signed By: ALBANIA VARMA RN, DOCK CLERK On: 01 March 2014 This document has images extracted. Source: [facility] stylefruitsCHART Document Id: [id number] Electronically signed by Conversion, [facility] Hose Suspender Cutter [id number] at 02/10/2017 5:14 AM CDT documented in this encounter Plan of Treatment Not on filedocumented as of this encounter Procedures Procedure Name Priority Date/Time Associated Diagnosis Comme nts HEMOGLOBIN, B Routine 03/01/2014 9:03 AM Results for this CDT procedure are i n the results section . documented in this encounter Results Hemoglobin (03/01/2014 9:03 AM CDT) P athologist Signature Hemoglobin 13.2 12.0 - 15.5 POWERCHART GDL Specimen (Source) Anatomical Collection Method Collection Time Re ceived Time Location / / Volume Laterality Blood 03/01/2014 9:03 AM CDT [place] Varma APRN, C.N.P., D.N.P. LAB BLOOD ADD-ON Performing Organization Address City/State/ZIP Code Phon e Number POWERCHART documented in this encounter Visit Diagnoses Not on filedocumented in this encounter
--- OUTSIDE RECORDS SUMMARY | 2022-05-06 13:11 | XMS_ITS | Encounter Summary ---
:1935 Author Organization [facility] Address [address] [place] [address] Care Team Providers Name Role Phone Unavailable Primary Care Provider Unavailable Encounter Details Date Type Department Care Team Description 10/06/2014 Hospital Encounter HX [facility] Albania Varma APRN, C.N.P., D. N.P. [address] [place] [address] (Wo rk) Social History Tobacco [...] Progress Notes Albania Varma APRN, C.N.P. - 10/06/2014 9:16 AM CST [id number] CHIEF COMPLAINT/REASON FOR VISIT Results from ultrasound. HISTORY OF PRESENT ILLNESS Kathryn is a very very pleasant 79-year-old who has had mildly chronically elevated liver enzymes. She is a non-tobacco user. She does have a significant history of diverticulitis which she currently has not been having any problems with. She is here today per my request to review her laboratory studies as well as her ultrasound. Patient did have the modest elevated liver enzymes that have been chronic.Much of her workup has been done. We are waiting for the results of her lab tests. 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 PAST MEDICAL/SURGICAL HISTORY Please see the EMR. PHYSICAL EXAMINATION In general, patient appears non-distressed. No additional physical examination performed. IMPRESSION/REPORT/PLAN Elevated liver enzymes, hepatitis panels and last laboratory studies are pending. Her ultrasound, I did reassure her just shows [place] hepatitis but also she has noted gallstones in her gallbladder. She will report if she has any new or worsening symptoms. We will make no changes in her medication regiment with these results. Ready to learn. No apparent learning barriers were identified. Learning preferences include listening. Explained diagnosis and treatment plan. Patient/Child/Caregiver expressed understanding of the content. 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 - 10/13/2014 4:47 PM CST Results Notification Document Contains Addenda Addendum by MADHAVI PERDOMO RN on 16 October 2014 15:57:07 CRUSHER PLANT OPERATOR Pt was given message, she verbalizes understanding. She will call if gallbladder symptoms. She also reports no vertigo for one month. Addendum by SUJATHA MAR LPN on 16 October 2014 12:59:31 CRUSHER PLANT OPERATOR Message left for patient to call back for results From: ALBANIA VARMA RN, FIXING CARPENTER To: [place] Family Medicine Nurse Jori; MADHAVI PERDOMO RN; Sent: 10/13/2014 16:47:09 CRUSHER PLANT OPERATOR Show up: 10/13/2014 16:42:00 CRUSHER PLANT OPERATOR Subject: Results Notification please call Kathryn- Let her know her US of the liver shows fatty infiltrates but nothing more worrisome. It was noted that her gallbladder has stones in it which is new. Her labs look good also with exception to her GGT being high. This may be due to the stones also. Given that she has no symptoms- we will monitor this. However, if she becomes symptomatic with gallbladder symptoms we will be inclined to be more agressive with it. Results: Date Result Type Result Name 10/06/2014 14:35 Radiology US Abdomen Complete Source: FST21 Document Id: [id number] Miscellaneous - Conversion, Historical Provider Ser - 10/06/2014 11:59 PM CRUSHER PLANT OPERATOR Coding Summary-Paper Based CODING DATE: 10/11/2014 FINAL [facility] STATUS: * Discharged to Home or Self Care PAYOR: Medicare ADMIT DX: 794.8 Nonspecific Abnormal Results of Function Study of Liver REASON FOR VISIT DX: 794.8 Nonspecific Abnormal Results of Function Study of Liver FINAL DX: PRINCIPAL: 794.8 Nonspecific Abnormal Results of Function Study of Liver SECONDARY: PROCEDURES DOCTOR NAME DATE NOTE: The code number assigned matches the documented diagnosis and / or procedure in the patient's chart. However, the narrative phrase printed from the coding software may appear abbreviated, or result in slightly different terminology. Coded By: DIANE CONNORS Date Saved: 10/11/2014 07:39 am Source: FST21 Document Id: [id number] documented in this encounter Plan of Treatment Not on filedocumented as of this encounter Visit Diagnoses Not on filedocumented in this encounter
--- OUTSIDE RECORDS SUMMARY | 2022-05-06 13:11 | XMS_ITS | Encounter Summary ---
:1935 Author Organization [facility] Address [address] [place] [address] Care Team Providers Name Role Phone Unavailable Primary Care Provider Unavailable Encounter Details Date Type Department Care Team Description 04/04/2016 Hospital Encounter HX [facility] Harman Hodges, C.N.P. [address] [place] [address] (Wo rk) Social History Tobacco [...] as needed. documented as of this encounter Procedure Notes Jessica Cuba R.T.([place]) - 04/04/2016 8:26 AM CDT Peripheral IV Document Has Been Updated Peripheral IV Entered On: 04/04/2016 8:28 CDT Performed On: 04/04/2016 8:26 CDT by JESSICA HOUSTON Peripheral IV Peripheral IV Assess/Intervention Grid Peripheral IV #1 Peripheral IV #2 Peripheral IV #3 IV Activity : Attempts/unsuccessful (Comment: Jessica Cuba Rt(R)(CT)(M) [JESSICA HOUSTON - 04/04/2016 8:26 CDT] ) Attempts/unsuccessful (Comment: Shantel Allison [JESSICA HOUSTON - 04/04/2016 8:26 CDT] ) Discontinue JESSICA HOUSTON - 04/04/2016 8:49 CDT (Comment: Start Shantel Allison RN End Jessica Cuba[JESSICA HOUSTON - 04/04/2016 8:49 CDT] ) Removal : Catheter intact JESSICA HOUSTON - 04/04/2016 8:49 CDT Number of Attempts : 1 1 1 Date of Insertion : 04/04/2016 CDT 04/04/2016 CDT 04/04/2016 CDT Discontinued Date : 04/04/2016 CDT JESSICA HOUSTON - 04/04/2016 8:49 CDT IV Site : Antecubital Antecubital Wrist Laterality : Left Right Left Catheter Size : 20 20 20 Catheter Type : Protective Protective Protective JESSICA HOUSTON - 04/04/2016 8:26 CDT JESSICA HOUSTON - 04/04/2016 8:26 CDT JESSICA HOUSTON - 04/04/2016 8:26 CDT Source: [employer] Document Id: [id number] documented in this encounter Miscellaneous Notes Miscellaneous - Conversion, Historical Provider Ser - 04/04/2016 11:59 PM CDT Coding Summary-Paper Based CODING DATE: 04/08/2016 FINAL [facility] STATUS: * Discharged to Home or Self Care PAYOR: Medicare ADMIT DX: REASON FOR VISIT DX: FINAL DX: PRINCIPAL: K57.30 Diverticulosis of large intestine without perforation or abscess without bleeding SECONDARY: R10.32 Left lower quadrant pain K44.9 Diaphragmatic hernia without obstruction or gangrene K80.20 Calculus of gallbladder without cholecystitis without obstruction K76.89 Other specified diseases of liver K76.0 Fatty (change of) liver, not elsewhere classified M47.816 Spondylosis without myelopathy or radiculopathy, lumbar region R11.0 Nausea R19.7 Diarrhea, unspecified Z09 Encounter for follow-up examination after completed treatment for conditions other than malignant neoplasm Z87.19 Personal history of other diseases of the digestive system PROCEDURES DOCTOR NAME DATE NOTE: The code number assigned matches the documented diagnosis and / or procedure in the patient's chart. However, the narrative phrase printed from the coding software may appear abbreviated, or result in slightly different terminology. Coded By: KARTHIKEYAN MENDIOLA Date Saved: 04/08/2016 02:36 pm Source: [employer] Document Id: [id number] documented in this encounter Plan of Treatment Not on filedocumented as of this encounter Visit Diagnoses Not on filedocumented in this encounter
--- OUTSIDE RECORDS SUMMARY | 2022-05-06 13:11 | XMS_ITS | Encounter Summary ---
:1935 Author Organization [facility] Address [address] [place] [address] Care Team Providers Name Role Phone Unavailable Primary Care Provider Unavailable Encounter Details Date Type Department Care Team Description 06/07/2015 - Hospital Encounter HX [facility] Albania Varma, 06/13/2015 [facility] C.N.P., D.N.P. [address] [place] [id number] Social History Tobacco Use Types Packs/Day Years Used Date Smoking Tobacco: Never Assessed Sex Assigned at Date Recorded Not on file documented as of this encounter Discharge Summaries Bianca Villalobos P.T. - 06/13/2015 12:00 AM CDT [id number] PHYSICAL THERAPY DISCHARGE SUMMARY No treatment performed on this date. Patient was evaluated and treated on 06/07/2015 for positional vertigo. Patient's primary care physician is Albania Varma. PLAN OF CARE Included PRINTER ASSISTANT maneuvers. Patient had full resolution of symptoms and goal achievement, therefore willbe discharged from therapy. Shawn JosephT./farhat Electronically Signed By: BIANCA VILLALOBOS On: 07/18/2015 02:23 PM Source: 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 - 06/08/2015 1:27 PM CDT Talked with patient via telephone and she is feeling much better. She will see how the day goes butfeels she will have complete recovery. Will plan for discharge next week. Patient to contact therapist if symtpoms do not resolve. Electronically Signed By: BIANCA VILLALOBOS On: 06/08/2015 01:28 PM Source: [facility] POWERCHART Document Id: [id number] documented in this encounter Consult Notes Bianca Villalobos P.T. - 06/07/2015 12:00 AM CDT [id number] PHYSICAL THERAPY PROGRESS NOTE Patient presents to physical therapy today with a new onset of positional vertigo. Patient has had multiple episodes of this in the past. She has had a full workup. At this time she reported her symptoms began yesterday while sewing. She has been trying to do the Uribe-Daroff exercises with her spouse at home but has not been able to get full relief. She describes symptoms of dizziness, lightheadedness, disequilibrium and spinning. She has had nausea without emesis. PHYSICAL EXAMINATION Today we did assess the Hallpike-Jimmy testing. Patient tested positive for right posterior canal nystagmus with a duration of greater than 60 seconds. Patient will be treated for positional vertigo of the right posterior canal. She does require skilled physical therapy for canalith repositioning. She consents to therapy treatment. Ready to learn. No apparent learning barriers were identified. Learning preferences include listening. Explained diagnosis and treatment plan. Patient/Child/Caregiver expressed understanding of the content. IMPRESSION/REPORT/PLAN We performed canalith repositioning for the right posterior canal x1 repetition with head shakes in each position. She tolerated this well and with symptom reproduction. PATIENT GOALS 1. Functional reporting status G8978 with modifier of CI, G8979 with modifier of CH as determined byher clinical presentation of symptoms and objective measures to be achieved within 3 weeks. 2. Patient will be symptom-free within 3 weeks. PLAN OF CARE PRINTER ASSISTANT maneuvers with possible home exercise program if needed. She has good rehab potential to achievegoals. Plan is to see patient up to 3 times per week for 3 weeks as needed to resolve symptoms. Patient's primary care physician is Albania Varma. Bianca Villalobos D.P.T./farhat Electronically Signed By: BIANCA VILLALOBOS On: 06/19/2015 02:13 PM Co-Signed By: ALBANIA VARMA RN, [facility] On: 06/20/2015 04:10 PM Source: [facility] MHSDOLBEYNONRADSYS Document Id: [id number] documented in this encounter Miscellaneous Notes Miscellaneous - Conversion, Historical Provider Ser - 06/08/2015 10:28 AM CDT Coding Summary-Paper Based CODING DATE: 06/08/2015 FINAL [facility] STATUS: Still Patient/Expected to Rtn Oupt [facility] PAYOR: Medicare ADMIT DX: 780.4 Dizziness and [...] terminology. Coded By: FRANCIS SEQUEIRA Date Saved: 06/08/2015 10:28 am Source: [employer] Document Id: [id number] documented in this encounter Plan of Treatment Not on filedocumented as of this encounter Visit Diagnoses Not on filedocumented in this encounter
--- OUTSIDE RECORDS SUMMARY | 2022-05-06 13:11 | XMS_ITS | Encounter Summary ---
:1935 Author Organization [facility] Address [address] [place] [id number] Care Team Providers Name Role Phone Unavailable Primary Care Provider Unavailable Encounter Details Date Type Department Care Team Description 04/06/2016 Hospital Encounter HX [facility] ED Olga Lantigua, P.A.-C. [id number] [place] [phone] (Wo rk) Social History Tobacco Use Types Packs/Day Years Used Date Smoking Tobacco: Never Assessed Sex Assigned at Date Recorded Not on file documented as of this encounter Last Filed Vital Signs Vital Sign Reading Time Taken Comments Blood Pressure 141/75 04/06/2016 10:11 AM CDT Pulse 76 04/06/2016 10:11 AM CDT Temperature - - Respiratory Rate 16 04/06/2016 10:11 AM CDT Oxygen Saturation - - Inhaled Oxygen Concentration - - Weight - - Height - - Body Mass Index - - documented in this encounter Discharge Summaries Linnette Cleary, RDannNDann - 04/06/2016 11:42 AM CDT ED Depart Summary [facility] Emergency Department Clinical Discharge Summary PERSON INFORMATION Name KATHRYN LEON Age 81 Years 1935 12:00 AM Sex Female Language Equ[place] Guinean PCP HUNTER SEQUEIRA MD Marital Status Visit Id Visit Reason Nausea; infection in bowel Specialty Enc Type Emergency Med Service Emergency Medicine Referred by Track Group [facility] ED Discharge 04/06/2016 11:41 AM Tracking Id [id number] Checkout 04/06/2016 11:41 AM Checkin 04/06/2016 10:02 AM Acuity 4 -Less Urgent Dispo Type * Discharged to Home or Self Care Arrival 04/06/2016 10:02 AM Reg Status Complete LOS 000 01:39 Address: [address] [place] [phone] Comment: PROVIDER INFORMATION Provider Role Provider Contact Time LINNETTE CLEARY INDUSTRIAL MACHINE OPERATOR Nurse 04/06/16 10:07 NO LANTIGUA PA-C ED Provider 04/06/16 10:20 DIAGNOSIS Nausea NOS Comment: PATIENT EDUCATION INFORMATION Instructions: VOMITING AND DIARRHEA, Nonspecific (Adult) Follow up: Source: [facility] Document Id: [id number] Linnette Cleary R.N. - 04/06/2016 11:42 AM CDT ED Discharge Instructions [place] [id number] Name: KATHRYN LEON Date of : 1935 12:00 AM Visit Date: 04/06/2016 10:02 AM [facility] Number: [id number] Address: [address] [place] [phone] Primary Care Provider: HUNTER SEQUEIRA MD IMPORTANT: [facility] in [place] would like to thank you for allowing us to assist you with your healthcare needs. The following includes patient education materials and informationregarding your injury/illness. Diagnosis: Nausea NOS Follow-Up Instructions: Your Upcoming Appointments: Date Time Location Provider No Appointments found Patient Education Materials: Vomiting and diarrhea help the body remove harmful substances. This may be a virus (stomach flu) or bacteria (food poisoning). Allergy to a food or medication may also cause vomiting or diarrhea. They also can sometimes be triggered by severe stress or worry (anxiety). It is often hard to pinpoint an e xact cause, even with testing. Vomiting and diarrhea often resolve within a day or two without problems. If they continue, though, they can lead to dehydration (excess fluid loss). This can be serious if not treated. Home care The following guidelines will help you with your illness: ?? Be cautious with medications. Ask your health care provider before you take nausea or diarrhea medication. The body often uses diarrhea and vomiting to get rid of a substance that may be toxic or cause harm. So medications that slow or stop this may not be recommended. Certain vwxa-iqs-knfeybt medications can help soothe stomach upset. ?? Drink or sip liquids to avoid dehydration. ?? If you are dehydrated, the doctor may suggest an oral rehydration solution (known as ORS). They can be bought without a prescription in grocery and drug stores. Use only prepared ORS. Do not try to make your own. The mix of water, salt, and electrolytes is the best at replacing what you lose when you are ill. If you cannot get ORS solution, a sports drink diluted with water in equal amounts (one cup of sports drink to one cup of water) is an okay substitute. ?? Take small sips frequently to help avoid excess fluid loss. If you stop vomiting, you can advanceyour diet, but some things can worsen diarrhea. ?? If the thought of drinking something makes you queasy, suck on ice chips. ?? Avoid sugary beverages, such as juices and sodas. These may make diarrhea worse. ?? Slowly return to your normal diet. ?? As your desire to eat returns, eat what appeals to you. You do not need to eat special foods. At first, avoid rich, fatty foods or cows milk. Do not eat too much at one time. You may be told to avoid certain foods until you feel better. ?? Wash your hands. Frequent handwashing can help prevent the spread of infection. Follow-up care Follow up as advised by the doctor or our staff. When to seek medical care Get prompt medical attention if any of the following occur: ?? Bloody or black vomit or stools. ?? Severe, steady abdominal pain or any abdominal pain that is getting worse. ?? Severe headache or stiff neck ?? An inability to hold down even sips of liquids for more than 12 hours. ?? Vomiting that lasts more than 24 hours. ?? Diarrhea that lasts more than 24 hours. ?? Fever of 100.4??F (38??C) or higher that lasts more than 48 hours, or as directed by your health care provider ?? Yellowish color to your skin or the whites of your eyes. ?? Signs of dehydration, such as dry mouth, little urine (less than every 6 hours), or very dark urine. ?? Severe weakness, dizziness or lightheadedness ?? [phone] [facility], [address] [place] [address], [place] [address]. All rights reserved. This information is not [...] dont have one. Go to [email or web address] and click on Create Your Account. Then, follow the directions to complete the online form. Youll be asked for your [facility] number which you can find at the top of this document. ED Tests and Procedures: Order Status Automated Diff-5 Part Completed CBC (includes Auto Differential) Completed Comprehensive Metabolic Panel Completed Lipase Level Completed Urinalysis with Culture if Indicated Completed Discharge Prescriptions & Home Medications: Medication/Strength Dose Route Frequency Indications/Special Instructions/Comments/Notes metroNIDAZOLE (metroNIDAZOLE) 500 mg Oral three times a day ciprofloxacin (Cipro) 500 mg Oral every 12 hours gabapentin (gabapentin 300 mg oral capsule) 900 mg Oral once a day fluticasone nasal (Flonase 50 mcg/inh nasal spray) 2 spray(s) Nostrils(Both) once a day fexofenadine-pseudoephedrine (Rochelle-D 12 Hour 60 mg-120 mg oral tablet, extended release) 1 tab(s)Oral two times a day rondafort madisondaria/Recensus [place] [phone] estradiol topical (Vagifem 10 mcg vaginal tablet) 10 mcg Vaginal 2 times a week Member No [phone] *omeprazole (omeprazole 40 mg oral delayed release capsule) 40 mg Oral two times a day 30-60 min prior to meals / last saw patient 03/30/15, no mention of f/u, but referred patient to Dr. Mosley at [facility] meclizine (meclizine 12.5 mg oral tablet) 1-2 [...] arrange a ride home with a responsible republican. CAROLYN Strange MARY CATHERINE , or responsible republican have received this information and my questions have been answered. I have discussed any challenges I see with this plan with the nurse or physician. Patient Signature or Responsible Constitution Party/Relationship Date Time Provider Signature Date Time [...] arrange a ride home with a responsible republican. CAROLYN Strange MARY CATHERINE , or responsible republican have received this information and my questions have been answered. I have discussed any challenges I see with this plan with the nurse or physician. Patient Signature or Responsible Constitution Party/Relationship Date Time Provider Signature Date Time Source: [facility] Document Id: [id number] documented in this encounter Medications at Time [...] encounter ED Notes Linnette Cleary R.N. - 04/06/2016 11:40 AM CDT ED Disposition Summary ED Disposition Summary Entered On: 04/06/2016 11:40 CDT Performed On: 04/06/2016 11:40 CDT by LINNETTE CLEARY INDUSTRIAL MACHINE OPERATOR Disposition Summary Present in Room During Exam/Procedure : Spouse Mode of Discharge : Ambulatory Transportation : Private vehicle Printed Discharge Instructions Given to Patient : Yes Patient Status at Discharge from ED : Improved LINNETTE CLEARY RN - 04/06/2016 11:40 CDT Source: [employer] Document Id: [id number] CDT!7 Linnette Cleary R.N. - 04/06/2016 11:40 AM CDT ED Pain Assessment ED Pain Assessment Entered On: 04/06/2016 11:40 CDT Performed On: 04/06/2016 11:40 CDT by LINNETTE CLEARY RN Pain Assessment Pain Symptoms : No LINNETTE CLEARY RN - 04/06/2016 11:40 CDT Source: [employer] Document Id: [id number]!3 No Lantigua P.A.-C. - 04/06/2016 11:25 AM CDT Nausea Patient: KATHRYN LEON Age: 81 years Sex: Female : 1935 Author: NO LANTIGUA PA-C Attachments: None Associated Diagnosis: Nausea NOS Basic Information Additional information: Chief Complaint from Nursing Triage Note : Chief Complaint Description 04/06/2016 10:11 CDT Chief Complaint Description presents with severe nausea. Was diagnosed with diverticulitis at her primary care clinic on Thursday and was started on cipro and flagyl and unable to keep them down . History of Present Illness 81 y/o female c/o nausea off and on x 4 days. Was seen by PCP [address] was obtained which revealed diverticulosis. Pt was placed on Cipro and Flagyl. She presents to the ER today as her nauseahas continued. She states her symptoms worsen every time she takes the Cipro. She denies abd pain, vomiting, diarrhea, fever,dysuria, or blood in her stool. Review of Systems Constitutional symptoms: Chills, but no fever, no sweats or no weakness. Skin symptoms: No rash. Eye symptoms: Vision unchanged. ENMT symptoms: No sore throat. Respiratory symptoms: No shortness of breath or no cough. Cardiovascular symptoms: No chest pain. Gastrointestinal symptoms: Nausea, but no abdominal pain, no vomiting, no diarrhea, no constipation or no rectal bleeding. Genitourinary symptoms: No dysuria or no hematuria. Musculoskeletal symptoms: No back pain. Neurologic symptoms: No headache or no dizziness. Additional review of systems information: All other [...] (365.9): Resolved.. Surgical history: Upper gastrointestinal endoscopy ([id number]) on 11/30/2013 at 78 Years. MAMMOGRAM (G0202) on 08/25/2013 at 78 Years. Comments: 10/31/2013 11:24 - SUJATHA MAR LPN [place] Normal may resume in [place] Mammogram ([id number]) on 07/15/2012 at 77 Years. Diagnostic colonoscopy ([id number]) on 03/25/2011 at 76 Years. Comments: 03/25/2011 08:49 - SAGRARIO NOLAND MD Sigmoid diverticulosis--not inflamed. Dual-energy X-ray absorptiometry (DXA), bone density study, 1 or more sites; axial skeleton (eg, hips, pelvis, spine).. ([id number]) in the week of 08/14/2010 at 75 Years. Comments: 10/25/2010 09:40 - CARMELO RHODES Hx: [id number] - BONE DEN HIPS/PEL/SP 08/01/2013 19:17 - Contributor source changed to Power[employer]. Mammogram ([id number]) on 07/22/2010 at 75 Years. Mammogram ([id number]) on 06/28/2010 at 75 Years. Laminectomy approach to lumbar spine ([id number]) in 2008 at 74 Years. Colonoscopy ([id number]) on 02/01/2009 at 73 Years. Extracapsular cataract removal with insertion of intraocular lens prosthesis (1 stage procedure), manual or mechanical technique (eg, irrigation and aspiration or phacoemulsification) ([id number]) on 02/26/2007 at 72 Years. Comments: 10/25/2010 20:26 - PATTI ALMENDAREZ MASH FILTER OPERATOR left HC COLONOSCOPY W SNARE REMOVAL TUMOR/POLYP/LESION - 12/31/06 on 12/31/2006 at 71 Years. HC ANTER COLPORRHAPHY,BLAD/VAGINA - 03/22/01 - ANTERIOR POSTERIOR REPAIR on 03/22/2001 at 66 Years. HC FLEX SIGMOIDOSCOPY W/WO JAMES SPEC BY BRUSH/WASH - on 06/14/1999 at 64 Years. Repair of cystocele ([id number]) in 1994 at 60 Years. Reduction mammaplasty () on 02/26/1982 at 47 Years. Hysterectomy ([id number]) on 11/04/1966 at 31 Years. Comments: 03/25/2011 08:51 - SAGRARIO NOLAND MD Vaginal Hemorrhoidectomy, internal and external, single column/group; ([id number]) on 02/26/1959 at 24 Years. C GLAUCOMA [...] . Physical Examination Vital Signs: Vital Signs 04/06/2016 10:11 CDT Temperature Core 36.2 DegC LOW Peripheral Pulse Rate 76 /min Respiratory Rate 16 /min SpO2 98 % Systolic Blood Pressure 141 mmHg HI Diastolic Blood Pressure 75 mmHg Mean Arterial Pressure 97 mmHg BP Location Left upper , SpO2 04/06/2016 10:11 CDT SpO2 98 % . General: Alert and no acute distress. Skin: Warm and no rash. Head: Normocephalic and atraumatic. Neck: No JVD. Ears, nose, mouth and throat: Oral mucosa moist and no pharyngeal erythema or exudate. Cardiovascular: Regular rate and rhythm, No murmur and No edema. Respiratory: Lungs are clear to auscultation, respirations are non-labored, breath sounds are equal and Symmetrical chest wall expansion. Gastrointestinal: Soft, Nontender, Non distended, Normal bowel sounds, No organomegaly and Signs: McBurney's negative, Psoas negative, Pagan's negative, Rovsing's negative. Neurological: Alert and oriented to person, place, time, and situation. Psychiatric: Cooperative and appropriate mood & affect. Medical Decision Making Rationale:Pt appears well. Vital signs are normal and lab works is within acceptable limits. Discussed the risk/benefit of repeating the CT scan that was obtained 2 days ago and pt declined. I agree with this decision at this time. Extensive pt education including detailed RTER warnings. Pt verbalized understanding that her condition may change and she understands the importance of repeat examination. She has been on a liquid diet. Will advance her diet to soft foods. She will continue the cirpo/flagyl. She will see us in the ER or her PCP within 48 hours for recheck, sooner if new or worsening symptoms.. Results review:Lab results : Lab View 04/06/2016 10:50 CDT UA Color Yellow UA [...] Absolute 2.26 10(9)/L Lymph Absolute 1.29 x10(9)/L Kendall Absolute 0.56 x10(9)/L Eos Absolute 0.12 x10(9)/L [...] 0.3 mg/dL Lipase Lvl 22.7 U/L . Radiology results:* Final Report * Reason For Exam Left Lower quadrant abdominal pain, nausea, diarrhea. Hx: diverticulitits Report 04-Apr-2016 08:48:00 Exam: CT ABDOMEN w & PELVIS w Indications: Left Lower quadrant abdominal pain, nausea, diarrhea. Hx: diverticulitits 04-Apr-2016 09:03 CA EXAM: CT scan of the Abdomen and Pelvis with IV contrast: COMPARISON: CT pelvis 05/17/2013. IMPRESSION: Possible early diverticulitis. FINDINGS: Diverticulosis of the sigmoid colon. There is a focal area of wall thickening in the sigmoid colon (2/70) without significant pericolonic inflammatory stranding. This appearance is similar to that seen on the comparison exam and could represent low-grade diverticulitis. Large esophageal hiatal hernia. Cholelithiasis. Left hepatic cyst. Generalized fatty infiltration of the liver. Degenerative changes lower lumbar facet joints. Pawel Uriarte MD. [phone] 04-Apr-2016 09:03 Signature Line Final Dictated: 04/04/2016 9:03 am IQRA URIARTE MD Signed (Electronic Signature): 04/04/2016 9:03 am Technologist: [place] Impression and Plan Diagnosis Nausea NOS (Discharge, Medical) Plan Condition: Improved. Prescriptions: Prescription Special Projects Coordinator Patient Care: Discharge ED Patient (Order Processing): 04/06/2016 11:27 CDT Pharmacy: Zofran ODT (Order Processing): 8 mg, PO, Once. Patient was given the following educational materials: VOMITING AND DIARRHEA, Nonspecific (Adult). Follow up with: Primary Care Physician, In: 2 day(s). Counseled: Patient. Electronically Signed By: NO LANTIGUA PA-C On: 04/06/2016 11:42 AM Modified by and Electronically Signed by: NO LANTIGUA PA-C On: 04/06/2016 11:42 AM Co-Signed By: NIKKO GODOY MD On: 04/06/2016 01:06 PM Source: [facility] Document Id: [id number]} Linnette Cleary R.N. - 04/06/2016 10:27 AM CDT ED Primary Assessment Document Has Been Updated ED Primary Assessment Entered On: 04/06/2016 10:28 CDT Performed On: 04/06/2016 10:27 CDT by LINNETTE CLEARY RN Reason For Visit (As Of: 04/06/2016 10:28:33 CDT) Problems(Active) Abnormal Liver Function Test (ICD-9-CM :790.6 ) Name of Problem: Abnormal Liver Function Test ; Onset Date: 10/05/2014 ; Recorder: ALBANIA VARMA CNP, DNP; Confirmation: Confirmed ; Classification: Medical ; Code: 790.6 ; Contributor System: [employer] ; Last Updated: 11/17/2014 12:51 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 ; Life CycleStatus: Active ; Responsible Provider: [...] Nursing ; Code: 714.0 ; Contributor System: [employer] ; Last Updated: 10/25/2010 20:18 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 ; Life Cycle Date: 10/25/2010 ; Life Cycle Status: Active ; Responsible Provider: PATTI ALMENDAREZ LPN; Vocabulary: ICD-9-CM Atrophic vaginitis (ICD-9-CM :627.3 ) Name of Problem: Atrophic vaginitis ; Onset Date: 07/27/2012 ;Recorder: ALBANIA VARMA CNP, DNP; Confirmation: Confirmed ; Classification: Medical ; Code: 627.3 ;Last Updated: 07/27/2012 11:32 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 ; Life Cycle Status: Active ; Responsible Provider: ALBANIA VARMA CNP, DNP; Vocabulary: ICD-9-CM Bursitis Hip/Trochanertic (ICD-9-CM :726.5 ) Name of Problem: Bursitis Hip/Trochanertic ; Onset Date: 10/20/2011 ; Recorder: ALBANIA VARMA CNP, DNP; Confirmation: Confirmed ; Classification: Medical ;Code: 726.5 ; Last Updated: 10/20/2011 9:54 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 ; Life Cycle Status: Active ; Responsible Provider: ALBANIA VARMA CNP, DNP; Vocabulary: ICD-9-CM Cataract NOS (ICD-9-CM :366.9 ) Name of Problem: Cataract NOS ; Onset Date: 1991 ; Recorder: PTATI ALMENDAREZ LPN; Confirmation: Confirmed ; Classification: Nursing [...] Classification: Nursing ; Code: 579.0 ; ContributorSystem: [employer] ; Last Updated: 10/25/2010 20:20 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 ; Life Cycle Date: 10/25/2010 ; Life [...] Medical ; Code: J38.3 ; Contributor System: [employer] ; Last Updated: 07/10/2015 10:30 CDT ; Life Cycle Status: Active ; Responsible Provider: ALBANIA VARMA CNP, DNP; Vocabulary: ICD-10-CM Diverticulitis of large intestine (ICD-9-CM :562.11 ) Name of Problem: Diverticulitis of large intestine ; Onset Date: 10/28/2010 ; Recorder: ALBANIA VARMA CNP, DNP; Confirmation: Confirmed ; Classification: Medical ; Code: 562.11 ; Last Updated: 10/28/2010 16:30 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 ; Life Cycle Status: Active ; Resp onsible Provider: ALBANIA VARMA CNP, DNP; Vocabulary: ICD-9-CM Eye disorder (ICD-9-CM :379.8 ) Name of Problem: Eye disorder ; Recorder: TAMMY ACEVES MD; Confirmation: Confirmed ; Classification: UPDATE NEEDED ; Code: 379.8 ; Contributor System: [employer] ; Last Updated: 11/12/2015 4:13 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 ; Life Cycle Date: 01/05/2012 ; Life Cycle Status: Active ; Responsible Provider: TAMMY ACEVES MD; Vocabulary: ICD-9-CM ; Comments: 01/21/2012 9:37 - MATTHEW BORDEN LPN date unknown Fracture of rib (SNOMED CT :24214113 ) Name of Problem: Fracture of rib ; Onset Date: 05/12/2013 ; Recorder: SUJATHA MAR LPN; Confirmation: Confirmed ; Classification: Nursing ; Code: 25734948 ;Contributor System: [employer] ; Last Updated: 06/07/2013 8:10 CDT ; Life Cycle Date: 06/07/2013 ; Life Cycle Status: Active ; Responsible Provider: SUJATHA AMR LPN; Vocabulary: SNOMED CT ; Comments: 06/07/2013 8:10 - SUJATHA MAR LPN left side Glaucoma (ICD-9-CM :365.44 ) Name of Problem: Glaucoma ; Onset Date: 1986 ; Recorder: PATTI ALMENDAREZ LPN; Confirmation: Confirmed ; Classification: Nursing ; Code: 365.44 ; Contributor System: [employer] ; Last Updated: 11/12/2015 4:13 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 ; Life Cycle Date: 10/25/2010 ; Life Cycle Status: Active ; Responsible Provider: PATTI ALMENDAREZ LPN; Vocabulary: ICD-9-CM ; Comments: 12/31/2010 12:11 - PATTI ALMENDAREZ LPN date unknown Glaucoma (SNOMED CT :67597586 ) Name of Problem: Glaucoma ; Recorder: TAMMY ACEVES MD; Confirmation: Confirmed ; Classification: Medical ; Code: 56881407 ; Contributor System: [employer] ; Last Updated: 01/05/2012 18:52 CDT ; [...] Code: 553.3 ; Last Updated: 10/31/2013 11:53 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 ; Life Cycle Status: Active ; Responsible Provider: ALBANIA VARMA CNP, DNP; Vocabulary: ICD-9-CM Osteopenia (ICD-9-CM :733.90 ) Name of Problem: Osteopenia ; Onset Date: 02/26/1987 ; Recorder: PATTI ALMENDAREZ LPN; Confirmation: Confirmed ; Classification: Nursing ; Code: 733.90 ; Contributor System: [employer] ; Last Updated: 10/25/2010 20:19 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 ; Life Cycle Date: 10/25/2010 ; Life Cycle Status: Active ; Responsible Provider: PATTI ALMENDAREZ LPN; Vocabulary: ICD-9-CM Diagnoses(Active) Nausea Date: 04/06/2016 ; Diagnosis Type: Reason For Visit ; Confirmation: Complaint of ; Clinical Dx: Nausea ; Classification: Medical ; Clinical Service: Emergency medicine ; Code: PNED ; Probability: 0 ; Diagnosis Code: [id number] Triage Mode of Arrival ED : Private vehicle Track : Medical Languages : [place]an Treatments Prior to Arrival : None Is Patient Female and 13-50 no hysterectomy : No LINNETTE CLEARY RN - 04/06/2016 10:27 CDT Pain Assessment Pain Symptoms : Yes LINNETTE CLEARY RN - 04/06/2016 10:27 CDT Respiratory Airway : Patent Respirations : Unlabored Respiratory Pattern : Regular LINNETTE CLEARY RN - 04/06/2016 10:27 CDT Cardiovascular Heart Rhythm : Regular Skin Color : Normal for ethnicity Skin Description : Dry Skin Temperature : Warm LINNETTE CLEARY RN - 04/06/2016 10:27 CDT Neurological Last Well Time Known : Not applicable Level of Consciousness : Alert Orientation : Oriented x 3 Characteristics of Speech : Appropriate for age LINNETTE CLEARY RN - 04/06/2016 10:27 CDT ED Psychosocial Affect/Behavior : Calm, Cooperative, Appropriate Domestic Abuse Concerns : None Behavioral Health Screen/Safety Assmt : No LINNETTE CLEARY RN - 04/06/2016 10:27 CDT Gastrointestinal Nutrition ED : Adequate LINNETTE CLEARY RN - 04/06/2016 10:27 CDT Musculoskeletal Fall Prevention Education Provided : NA LINNETTE CLEARY RN - 04/06/2016 10:27 CDT Social Habits Exposure to Tobacco Smoke : Care provider denies smoking in home, Other: never Smoking Status : Never smoker Tobacco 2A : No Tobacco Use/Currently Using : No Tobacco Use/Last 30 Days : No Tobacco Use/Last 12 months : No LINNETTE CLEARY RN - 04/06/2016 10:27 CDT Alcohol Use Grid Alcohol Use : Yes Type : Liquor Frequency : Occasionally LINNETTE CLEARY RN - 04/06/2016 10:27 CDT Recreational Drug Use Grid Drug Use : None LINNETTE CLEARY RN - 04/06/2016 10:27 CDT Source: [facility] Document Id: [id number]!46 Linnette Cleary R.N. - 04/06/2016 10:11 AM CDT ED Triage Assessment Document Has Been Updated ED Triage Assessment Entered On: 04/06/2016 10:13 CDT Performed On: 04/06/2016 10:11 CDT by LINNETTE CLEARY RN Reason For Visit (As Of: 04/06/2016 10:13:50 CDT) Problems(Active) Abnormal Liver Function Test (ICD-9-CM :790.6 ) Name of Problem: Abnormal Liver Function Test ; Onset Date: 10/05/2014 ; Recorder: ALBANIA VARMA CNP, DNP; Confirmation: Confirmed ; Classification: Medical ; Code: 790.6 ; Contributor System: [employer] ; Last Updated: 11/17/2014 12:51 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 ; Life CycleStatus: Active ; Responsible Provider: ALBANIA VARMA CNP, DNP; Vocabulary: ICD-9-CM Allergic rhinitis, unspecified (ICD-9-CM :477.9 ) Name of Problem: Allergic rhinitis, unspecified ; Onset Date: 1952 ; Recorder: PATTI ALMENDAREZ LPN; Confirmation: Confirmed ; Classification: Nursing ;Code: 477.9 ; Contributor System: [employer] ; Last Updated: 01/21/2011 10:04 CDT ; [...] System: PowerChart ; Last Updated: 10/25/2010 20:18 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 ; Life Cycle Date: 10/25/2010 ; Life Cycle Status: Active ; Responsible Provider: PATTI ALMENDAREZ LPN; Vocabulary: ICD-9-CM Atrophic vaginitis (ICD-9-CM :627.3 ) Name of Problem: Atrophic vaginitis ; Onset Date: 07/27/2012 ;Recorder: ALBANIA VARMA CNP, DNP; Confirmation: Confirmed ; Classification: Medical ; Code: 627.3 ;Last Updated: 07/27/2012 11:32 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 ; Life Cycle Status: Active ; Responsible Provider: ALBANIA VARMA CNP, DNP; Vocabulary: ICD-9-CM Bursitis Hip/Trochanertic (ICD-9-CM :726.5 ) Name of Problem: Bursitis Hip/Trochanertic ; Onset Date: 10/20/2011 ; Recorder: ALBANIA VARMA CNP, DNP; Confirmation: Confirmed ; Classification: Medical ;Code: 726.5 ; Last Updated: 10/20/2011 9:54 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 ; Life Cycle Status: Active ; Responsible Provider: ALBANIA VARMA CNP, DNP; Vocabulary: ICD-9-CM Cataract NOS (ICD-9-CM :366.9 ) Name of Problem: Cataract NOS ; Onset Date: 1991 ; Recorder: PATTI ALMENDAREZ LPN; Confirmation: Confirmed ; Classification: Nursing ; Code: 366.9 ; Contributor System: [employer] ; Last Updated: 01/21/2011 10:04 CDT ; Life Cycle Date: 10/25/2010 ; Life Cycle Status: Active ; Responsible Provider: PATTI ALMENDAREZ LPN; Vocabulary: ICD-9-CM ; Comments: 12/31/2010 12:11 - PATTI ALMENDAREZ LPN date unknown Celiac Disease (ICD-9-CM :579.0 ) Name of Problem: Celiac Disease ; Onset Date: 02/26/2007 ; Recorder: PATTI ALMENADREZ LPN; Confirmation: Confirmed ; Classification: Nursing ; Code: 579.0 ; ContributorSystem: PowerChart ; Last Updated: 10/25/2010 20:20 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 ; Life Cycle Date: 10/25/2010 ; Life [...] Medical ; Code: J38.3 ; Contributor System: [employer] ; Last Updated: 07/10/2015 10:30 CDT ; Life Cycle Status: Active ; Responsible Provider: ALBANIA VARMA CNP, DNP; Vocabulary: ICD-10-CM Diverticulitis of large intestine (ICD-9-CM :562.11 ) Name of Problem: Diverticulitis of large intestine ; Onset Date: 10/28/2010 ; Recorder: ALBANIA VARMA CNP, DNP; Confirmation: Confirmed ; Classification: Medical ; Code: 562.11 ; Last Updated: 10/28/2010 16:30 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 ; Life Cycle Status: Active ; Resp onsible Provider: ALBANIA VARMA CNP, DNP; Vocabulary: ICD-9-CM Eye disorder (ICD-9-CM :379.8 ) Name of Problem: Eye disorder ; Recorder: TAMMY ACEVES MD; Confirmation: Confirmed ; Classification: UPDATE NEEDED ; Code: 379.8 ; Contributor System: [employer] ; Last Updated: 11/12/2015 4:13 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 ; Life Cycle Date: 01/05/2012 ; Life Cycle Status: Active ; Responsible Provider: TAMMY ACEVES MD; Vocabulary: ICD-9-CM ; Comments: 01/21/2012 9:37 - MATTHEW BORDEN LPN date unknown Fracture of rib (SNOMED CT :66199038 ) Name of Problem: Fracture of rib ; Onset Date: 05/12/2013 ; Recorder: SUJATHA MAR LPN; Confirmation: Confirmed ; Classification: Nursing ; Code: 72711247 ;Contributor System: PowerChart ; Last Updated: 06/07/2013 [...] System: PowerChart ; Last Updated: 11/12/2015 4:13 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 ; Life Cycle Date: 10/25/2010 ; Life Cycle Status: Active ; Responsible Provider: PATTI ALMENDAREZ LPN; Vocabulary: ICD-9-CM ; Comments: 12/31/2010 12:11 - PATTI ALMENDAREZ LPN date unknown Glaucoma (SNOMED CT :24066708 ) Name of Problem: Glaucoma ; Recorder: TAMMY ACEVES MD; Confirmation: Confirmed ; Classification: Medical ; Code: 40177248 ; Contributor System: PowerChart ; Last Updated: [...] Code: 553.3 ; Last Updated: 10/31/2013 11:53 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 ; Life Cycle Status: Active ; Responsible Provider: ALBANIA VARMA CNP, DNP; Vocabulary: ICD-9-CM Osteopenia (ICD-9-CM :733.90 ) Name of Problem: Osteopenia ; Onset Date: 02/26/1987 ; Recorder: PATTI ALMENDAREZ LPN; Confirmation: Confirmed ; Classification: Nursing ; Code: 733.90 ; Contributor System: [employer] ; Last Updated: 10/25/2010 20:19 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 ; Life Cycle Date: 10/25/2010 ; Life Cycle Status: Active ; Responsible Provider: PATTI ALMENDAREZ LPN; Vocabulary: ICD-9-CM Diagnoses(Active) Nausea Date: 04/06/2016 ; Diagnosis Type: Reason For Visit ; Confirmation: Complaint of ; Clinical Dx: Nausea ; Classification: Medical ; Clinical Service: Emergency medicine ; Code: PNED ; Probability: 0 ; Diagnosis Code: [id number] Triage Chief Complaint Description : presents with severe nausea. Was diagnosed with diverticulitis at her primary care clinic on Thursday and was started on cipro and flagyl and unable to keep them down Information Given By : Patient Present in Room During Exam/Procedure : Spouse Mode of Arrival ED : Private vehicle Track : Medical Languages : [place]an Patient Informed of Triage Location : Emergency department Vital Signs Assessed : Yes Treatments Prior to Arrival : None Is Patient Female and 13-50 no hysterectomy : No LINNETTE CLEARY RN - 04/06/2016 10:11 CDT Vital Signs Temperature Core : 36.2 DegC(Converted to: 97.2 DegF) (LOW) Peripheral Pulse Rate : 76 /min Respiratory Rate : 16 /min Systolic Blood Pressure : 141 mmHg (HI) Diastolic Blood Pressure : 75 mmHg NIBP Mean : 97 mmHg BP Location : Left upper extremity SpO2 : 98 % Oxygen Therapy : Room air LINNETTE CLEARY RN - 04/06/2016 10:11 CDT Pain Assessment Pain Symptoms : Yes LINNETTE CLEARY RN - 04/06/2016 10:11 CDT Pain Scale Pain Scale Verbal 0-10 : Open LINNETTE CLEARY RN - 04/06/2016 10:11 CDT Pain Pain Assessment Grid Pain 1 Location : Abdomen Laterality : Bilateral Intensity : 2 LINNETTE CLEARY RN - 04/06/2016 10:11 CDT ED Physician Notification Time ED Physician Notification Time : 04/06/2016 10:13 CDT LINNETTE CLEARY RN - 04/06/2016 10:11 CDT CAMI DCP GENERIC CODE Tracking Acuity : 4 -Less Urgent Tracking Group : [facility] ED LINNETTE CLEARY RN - 04/06/2016 10:11 CDT Allergy (As Of: 04/06/2016 10:13:50 CDT) Allergies (Active) Glutens Estimated Onset Date: Unspecified ; Created By: PATTI ALMENDAREZ LPN; Reaction Status: Active; Category: Drug ; Substance: Glutens ; Type: Allergy ; Updated By: PATTI ALMENDAREZ LPN; Reviewed Date: 04/06/2016 10:13 CDT miconazole topical Comments: Comment 1: MICONAZOLE NITRATE ; Created By: Contributor_system, [facility]; Reaction Status: Active ; Category: Drug ; Substance: miconazole topical ; Type: Unknown ;Updated By: Contributor_system, [facility]; Reviewed Date: 04/06/2016 10:13 CDT Nuts Estimated Onset Date: Unspecified ; Created By: PATTI ALMENDAREZ LPN; Reaction Status: Active ; Category: Food ; Substance: Nuts ; Type: Allergy ; Updated By: PATTI ALMENDAREZ LPN; Reviewed Date: 04/06/2016 10:13 CDT ID Screen Drug Resistant Organism : No Travel Within Last 21 Days : No Contact with someone with Ebola : No LINNETTE CLEARY RN - 04/06/2016 10:11 CDT Immunizations Immunizations Current : Yes LINNETTE CLEARY RN - 04/06/2016 10:11 CDT Source: [facility] [employer] Document Id: [id number] CDT!44 documented in this encounter Miscellaneous Notes Miscellaneous - Conversion, Historical Provider Ser - 04/06/2016 11:41 AM CDT Coding Summary-Paper Based CODING DATE: 04/18/2016 FINAL [facility] STATUS: * Discharged to Home or Self Care PAYOR: Medicare ADMIT DX: R11.0 Nausea REASON FOR VISIT DX: R11.0 Nausea FINAL DX: PRINCIPAL: R11.0 Nausea SECONDARY: R68.83 Chills (without fever) Z88.8 Allergy status to other drugs, medicaments and biological substances status PROCEDURES DOCTOR NAME DATE NOTE: The code number assigned matches the documented diagnosis and / or procedure in the patient's chart. However, the narrative phrase printed from the coding software may appear abbreviated, or result in slightly different terminology. Coded By: ARIANNA CHACON Date Saved: 04/18/2016 06:58 am Source: [facility] [employer] Document Id: [id number] Miscellaneous - Linnette Cleary RDannNDann - 04/06/2016 11:40 AM CDT Valuables/Belongings Valuables/Belongings Entered On: 04/06/2016 11:40 CDT Performed On: 04/06/2016 11:40 CDT by LINNETTE CLEARY RN Valuables/Belongings Home Medication Disposition : None brought in with patient LINNETTE CLEARY RN - 04/06/2016 11:40 CDT Source: [facility] [employer] Document Id: [id number] CDT!3 Miscellaneous - Linnette Cleary R.N. - 04/06/2016 10:02 AM CDT Facility Charge Ticket 2.0 11.0 DX Facility Charge Ticket 2.0 11.0 DX Entered On: 04/06/2016 11:41 CDT Performed On: 04/06/2016 10:02 CDT by LINNETTE CLEARY RN Facility Charge Ticket 2.0 11.0 DX ED Other Charges : Standard ED Encounter TVL Level Translated RTF : Nausea TVL:3 TVL Level for Facility Charge Ticket : Level 3 Arrival Mode Calc : 1 Mode of Arrival ED : Private vehicle [facility] Mode of Arrival Interpreted : Standard [facility] Process Management : None Order Management RTF : Laboratory CBC (includes Auto Differential),04/06/16 10:29,NO LANTIGUA PA-C Completed CMP,04/06/16 10:29,NO LANTIGUA PA-C Completed Lipase Level,04/06/16 10:29,NO LANTIGUA PA-C Completed UA with Culture if Indicated,04/06/16 10:29,NO LANTIGUA PA-C Completed Automated Diff-5 Part,04/06/16 10:41,NO LANTIGUA PA-C Completed [facility] Order Management : Lab tests 30 Minutes Critical Care : No Nursing Notes RTF : Triage Forms ED Triage Assessment,04/06/16 10:11,LINNETTE CLEARY RN Nursing Notes ED Primary Assessment,04/06/16 10:27,LINNETTE CLEARY INDUSTRIAL MACHINE OPERATOR Pain Assessment,04/06/16 11:40,LINNETTE CLEARY RN [facility] Nursing Assessment : Triage and 1-2 nursing assessments [facility] Disposition : Discharge [facility] Total Points with Diagnosis Control : 6 [facility] Visit Level : 15771 Level 3 Treatments Prior to Arrival : None LINNETTE CLEARY RN - 04/06/2016 11:40 CDT Source: [facility] [employer] Document Id: [id number] CDT!18 documented in this encounter Plan of Treatment Not on filedocumented as of this encounter Procedures Procedure Name Priority Date/Time Associated Comments Diagnosis URINALYSIS, MIDSTREAM, Routine 04/06/2016 10:50 R esults for this WITH CULTURE IF AM CDT procedure ar e in INDICATED the results section. AUTOMATED Routine 04/06/2016 10:36 Results for this DIFFERENTIAL, B AM CDT procedure ar e in the results section. CBC WITH DIFFERENTIAL, Routine 04/06/2016 10:36 R esults for this B AM CDT procedure are i n the results section. LIPASE, S/P Routine 04/06/2016 10:36 Results for this AM CDT procedure are i n the results section. COMPREHENSIVE Routine 04/06/2016 10:36 Results fo r this METABOLIC PANEL, S/P AM CDT procedu re are in the results section. documented in this encounter Results (ABNORMAL) Urinalysis, Midstream, with culture if indicated (04/06/2016 10:50 AM CDT) [facility] Method Time Signature Clarity Clear Clear POWERCHART HXUr Color Yellow Colorless POWERCHART Specific 1.010 POWERCHART [place], POCT, U pH, POCT, Urine 7.5 <5.0 POWERCHART Protein, Ur, Negative Negative POWERCHART Dip MGDL Glucose Negative Negative POWERCHART MGDL Ketones, QL(U) Negative Negative POWERCHART MGDL HXBILIRUBIN Negative Negative POWERCHART HXBLOOD Negative Negative POWERCHART Leukocyte Negative Negative POWERCHART Esterase HXNITRITE Negative Negative POWERCHART Urobilinogen 0.2 0.2 MGDL POWERCHART HXUR WBC. Occ-3 None Seen POWERCHART HPF HXUR RBC. Occ-2 None Seen POWERCHART HPF Casts, Hyaline Occasional None Seen POWERCHART (A) LPF Squamous Occ-3 (A) None Seen POWERCHART Epithelial HPF Crystals Present (A) None Seen POWERCHART Comment: amorphous Specimen (Source) Anatomical Collection Method Collection Time Re ceived Time Location / / Volume Laterality Urine, First 04/06/2016 10:50 Voided AM CDT No Lantigua P.A.-C. LAB URINE ORDERABLES Performing Organization Address City/State/ZIP Code Phon e Number POWERCHART Automated Differential (04/06/2016 10:36 AM CDT) P athologist Signature Absolute 2.26 1.70 - POWERCHART Neutrophils 7.00 109L Lymphocytes 1.29 0.90 - POWERCHART 2.90 X109L Monocytes 0.56 0.30 - POWERCHART 0.90 X109L Eosinophils 0.12 0.05 - POWERCHART 0.50 X109L Absolute 0.01 0.00 - POWERCHART Basophil 0.30 X109L Specimen Anatomical Collection Method Collection Time Receive d Time (Source) Location / / Volume Laterality Blood 04/06/2016 10:36 04/06/2016 AM CDT 10:36 AM CDT No Lantigua P.A.-C. LAB BLOOD ADD-ON Performing Organization Address City/State/ZIP Code Phon e Number POWERCHART CBC with Differential (04/06/2016 10:36 AM CDT) P athologist Signature Leukocytes 4.2 3.4 - 10.5 POWERCHART X109L Erythrocytes 4.51 3.90 - 5.03 POWERCHART [id number] Hemoglobin 14.3 12.0 - 15.5 POWERCHART GDL Hematocrit 39.9 34.9 - 44.5 POWERCHART MCV 88.5 81.6 - 98.3 POWERCHART FL HX RDW 11.9 11.9 - 15.5 POWERCHART Platelet Count 159 150 - 450 POWERCHART X109L Specimen (Source) Anatomical Collection Method Collection Time Re ceived Time Location / / Volume Laterality Blood 04/06/2016 10:36 AM CDT No Lantigua P.A.-C. LAB BLOOD ADD-ON Performing Organization Address City/State/ZIP Code Phon e Number POWERCHART Lipase (04/06/2016 10:36 AM CDT) P athologist Signature Lipase, S 22.7 10.0 - 73.0 POWERCHART UL Specimen (Source) Anatomical Collection Method Collection Time Re ceived Time Location / / Volume Laterality Blood 04/06/2016 10:36 AM CDT No Lantigua P.A.-C. LAB BLOOD ADD-ON Performing Organization Address City/State/ZIP Code Phon e Number POWERCHART (ABNORMAL) CMP (Comprehensive Metabolic Panel) (04/06/2016 10:36 AM CDT) Patholo gist Method Time Signature Alanine 67 (H) 7 - 45 POWERCHART Amniotransferase, LD UNITL Albumin, S 4.2 3.5 - 5.0 POWERCHART GDL Alkaline 64 55 - 142 POWERCHART Phosphatase, S UL Aspartate 47 (H) 8 - 43 POWERCHART Aminotransferase UNITL (AST), S Sodium, S 133.3 (L) 135.0 - POWERCHART 145.0 MML Potassium, S 3.8 3.6 - 4.8 POWERCHART MMOLL Chloride, S 97 (L) 98 - 107 POWERCHART MMOLL CO2 Total 26.8 23.0 - POWERCHART 29.0 MMOLL BUN (Blood Urea 8 7 - 18 POWERCHART Nitrogen), S MGDL Creatinine 0.87 0.60 - POWERCHART 1.30 MGDL Calcium, Total, S 9.4 8.8 - POWERCHART 10.2 MGDL Anion Gap 10 10 - 20 POWERCHART MMOLL HXeGFR (MDRD) >60 >=60 POWERCHART [id number] 2 eGFR Black/ >60 >=60 POWERCHART Estonian [id number] 2 Bilirubin, Total, S 0.3 0.1 - 1.0 POWERCHART MGDL Total Protein, S 6.7 6.3 - 7.9 POWERCHART GDL Glucose 98 70 - 139 POWERCHART MGDL Specimen (Source) Anatomical Collection Method Collection Time Re ceived Time Location / / Volume Laterality Blood 04/06/2016 10:36 AM CDT No Lantigua P.A.-C. LAB BLOOD ADD-ON Performing Organization Address City/State/ZIP Code Phon e Number POWERCHART documented in this encounter Visit Diagnoses Not on filedocumented in this encounter
--- OUTSIDE RECORDS SUMMARY | 2022-05-06 13:11 | XMS_ITS | Encounter Summary ---
:1935 Author Organization [facility] Address [address] [place] [address] Care Team Providers Name Role Phone Unavailable Primary Care Provider Unavailable Encounter Details Date Type Department Care Team Description 04/11/2015 Hospital Encounter HX [facility] Aries Solano M.D. [address] [place], [place] [phone] (Wo rk) Social History [...] Date/Time Associated Comments Diagnosis CREATININE WITH Routine 04/11/2015 8:07 AM Result s for this EGFR, S/P CDT procedure are i n the results section. documented in this encounter Results (ABNORMAL) Creatinine with eGFR (04/11/2015 8:07 AM CDT) P athologist Signature Creatinine 1.00 0.60 - POWERCHART 1.10 MGDL eGFR >60 >=60 POWERCHART Black/ [id number] Trinidadian HXeGFR (MDRD) 54 (L) >=60 POWERCHART [id number] Comment: Results are in mL/min/1.73m CKD Stage I: ? GFR > 90 CKD Stage II: ?GFR 60 to 89 CKD Stage III: ? GFR 30 to 59 CKD Stage IV: ? GFR 15 to 29 CKD Stage V: ?GFR < 15 or Dialysi s Specimen (Source) Anatomical Collection Method Collection Time Re ceived Time Location / / Volume Laterality Blood 04/11/2015 8:07 AM CDT Aries Solano M.D. LAB BLOOD ADD-ON Performing Organization Address City/State/ZIP Code Phon e Number POWERCHART documented in this encounter Visit Diagnoses Not on filedocumented in this encounter
--- OUTSIDE RECORDS SUMMARY | 2022-05-06 13:11 | XMS_ITS | Encounter Summary ---
:1935 Author Organization [facility] Address [address] [place] [address] Care Team Providers Name Role Phone Unavailable Primary Care Provider Unavailable Encounter Details Date Type Department Care Team Description 10/06/2014 Hospital Encounter HX [facility] Mary Varma, CYRIL, C.N.P., D. N.P. [address] [place] [address] (Wo rk) Social History Tobacco Use Types Packs/Day Years Used Date Smoking Tobacco: Never Assessed Sex Assigned at Date Recorded Not on file documented as of this encounter Last Filed Vital Signs Vital Sign Reading Time Taken Comments Blood Pressure 118/66 10/06/2014 8:26 AM PATHOLOGY TECHNICIAN Pulse 78 10/06/2014 8:26 AM PATHOLOGY TECHNICIAN Temperature - - Respiratory Rate 16 10/06/2014 8:26 AM PATHOLOGY TECHNICIAN Oxygen Saturation - - Inhaled Oxygen Concentration - - Weight 75.4 kg (166 lb 3.6 oz) 10/06/2014 8:26 AM PATHOLOGY TECHNICIAN Height - - Body Mass Index 29.9 02/28/2014 9:25 AM CDT documented in this [...] of this encounter Miscellaneous Notes Miscellaneous - Mary Varma APRN, C.N.P. - 10/06/2014 9:09 AM CST Ambulatory Patient Summary [address] [place] [id number] Visit Information Name: KATHRYN LEON [facility] Number: [id number] Current Date: 10/06/2014 09:09:29 Physicians Attending Provider: MARY VARMA RN, ATTORNEY AT LAW Primary Care Provider: MARY VARMA RN, ATTORNEY AT LAW KATHRYN LEON has been given the following [...] Vaginal, 2 times a week Member No [id number] ferrous sulfate (ferrous sulfate 325 mg (65 mg elemental iron) oral tablet) 1 Tablet(s), Oral, once a day fexofenadine-pseudoephedrine (Rochelle-D 12 Hour 60 mg-120 mg oral tablet, extended release) 1 Tablet(s), Oral, two [facility] [phone] fluticasone nasal (Flonase 0.05 mg/inh nasal spray) 2 [place](s), Nostrils(Both), once a day gabapentin (gabapentin 300 [...] the Following Medications: Medication list as of 10-06-14 09:09 Attention: If you have any medications at [...] emergency. Electronically Signed By: MARY VARMA RN, ATTORNEY AT LAW Signed On:06-OCT-2014 09:09:08 Your Allergies & Intolerances Substance Reaction Symptoms [...] Active 10/31/2013 Abnormal Liver Function Test Active Your Upcoming Appointments Date Time Location Provider 10/06/2014 11:30 [facility] Ultrasound [facility] US Room 1 Attention: Contact your local Clinic if further appointment detail needed. Your Goals/Additional instructions: Source: [facility] POWERCHART Document Id: [id number] OLOGY TECHNICIAN Miscellaneous - Mary Varma APRN, C.N.P. - 10/06/2014 9:09 AM CST Ambulatory Discharge Medication List [address] [id number] Visit Information Name: CAROLYNKATHRYN COLON [facility] Number: [id number] Visit Date: 10/06/2014 09:09:27 Attending Provider: MARY VARMA RN, ATTORNEY AT LAW Primary Care Provider: MARY VARMA RN, ATTORNEY AT LAW KATHRYN LEON has been given the following [...] Vaginal, 2 times a week Member No [id number] ferrous sulfate (ferrous sulfate 325 mg (65 mg elemental iron) oral tablet) 1 Tablet(s), Oral, once a day fexofenadine-pseudoephedrine (Rochelle-D 12 Hour 60 mg-120 mg oral tablet, extended release) 1 Tablet(s), Oral, two times a day [facility] [phone] fluticasone nasal (Flonase 0.05 mg/inh nasal spray) 2 [place](s), Nostrils(Both), once a day gabapentin (gabapentin 300 [...] the Following Medications: Medication list as of 10-06-14 09:09 Attention: If you have any medications at [...] emergency. Electronically Signed By: MARY VARMA RN, ATTORNEY AT LAW Signed On:06-OCT-2014 09:09:08 Additional Information: Source: [facility] POWERCHART Document Id: [id number] OLOGY TECHNICIAN Miscellaneous - Sujatha Batista LDannPDannN. - 10/06/2014 8:26 AM CST Adult Circulation Librarian Intake/History Adult Circulation Librarian Intake/History Entered On: 10/06/2014 8:30 PATHOLOGY TECHNICIAN Performed On: 10/06/2014 8:26 PATHOLOGY TECHNICIAN by SUJATHA BATISTA LPN Intake Chief Complaint : Follow up Mri results and ultrasound review labs Temperature Core : 36.8 DegC(Converted to: 98.2 DegF) Peripheral Pulse Rate : 78 /min Respiratory Rate : 16 /min Heart Rhythm : Regular Systolic Blood Pressure : 118 mmHg Diastolic Blood Pressure : 66 mmHg NIBP Mean : 83 mmHg BP Location : Left upper extremity Blood Pressure Cuff Size : Large Actual Weight : 75.4 kg(Converted to: 166 lb 4 oz) Dosing Weight Clinic : 75.4 kg SUJATHA BATISTA LPN - 10/06/2014 8:26 PATHOLOGY TECHNICIAN General Info Information Given By : Patient Preferred Communication Mode : Verbal Languages : Chilean Is Patient Female and 13-50 no hysterectomy : No SUJATHA BATISTA LPN - 10/06/2014 8:26 PATHOLOGY TECHNICIAN Subjective Pain Symptoms : No SUJATHA BATISTA LPN - 10/06/2014 8:26 PATHOLOGY TECHNICIAN Dependent Habits Tobacco Use/Currently Using : Yes Exposure to Tobacco Smoke : Care provider denies smoking in home Smoking Status : Never smoker SUJATHA BATISTA LPN - 10/06/2014 8:26 PATHOLOGY TECHNICIAN Tobacco Use Grid Last Use : never SUJATHA BATISTA LPN - 10/06/2014 8:26 PATHOLOGY TECHNICIAN Caffeine Use Grid Caffeine Use : Current Type : Coffee Frequency : Weekly SUJATHA BATISTA LPN - 10/06/2014 8:26 PATHOLOGY TECHNICIAN Recreational Drug Use Grid Drug Use : None SUJATHA BATISTA LPN 10/06/2014 8:26 PATHOLOGY TECHNICIAN ID Screen Drug Resistant Organism : No Travel Within Last 21 Days : No SUJATHA BATISTA LPN - 10/06/2014 8:26 PATHOLOGY TECHNICIAN Source: [employer] Document Id: [id number] PATHOLOGY TECHNICIAN!39 OLOGY TECHNICIAN documented in this encounter Plan of Treatment Not on filedocumented as of this encounter Procedures Procedure Name Priority Date/Time Associated Comments Diagnosis HXZZORDERS Routine 10/06/2014 8:50 AM Results f or this PATHOLOGY TECHNICIAN procedure are i n the results section. HCV RNA DETECT/QUANT Routine 10/06/2014 8:50 AM R esults for this PATHOLOGY TECHNICIAN procedure are i n the results section. IRON AND TOT Routine 10/06/2014 8:50 AM Results f or this IRON-BINDING PATHOLOGY TECHNICIAN procedure are i n CAPACITY, S/P the results section. HBE ANTIBODY Routine 10/06/2014 8:50 AM Results f or this PATHOLOGY TECHNICIAN procedure are i n the results section. ALPHA-FETOPROTEIN Routine 10/06/2014 8:50 AM Resu lts for this (AFP) TM, S PATHOLOGY TECHNICIAN procedure are i n the results section. HEPATITIS BE AG Routine 10/06/2014 8:50 AM Result s for this PATHOLOGY TECHNICIAN procedure are i n the results section. HBS ANTIBODY, SERUM Routine 10/06/2014 8:50 AM Re sults for this PATHOLOGY TECHNICIAN procedure are i n the results section. HEPATITIS B SURFACE Routine 10/06/2014 8:50 AM Re sults for this ANTIGEN PATHOLOGY TECHNICIAN procedure are i n the results section. PROTHROMBIN TIME Routine 10/06/2014 8:50 AM Resul ts for this (PT), P PATHOLOGY TECHNICIAN procedure are i n the results section. ALKALINE PHOSPHATASE, Routine 10/06/2014 8:50 AM Results for this S/P PATHOLOGY TECHNICIAN procedure are i n the results section. GAMMA-GLUTAMYLTRANSFE Routine 10/06/2014 8:50 AM Results for this RASE (GGT), S/P PATHOLOGY TECHNICIAN procedure ar e in the results section. BILIRUBIN DIRECT, S/P Routine 10/06/2014 8:50 AM Results for this PATHOLOGY TECHNICIAN procedure are i n the results section. BILIRUBIN, TOT, S/P Routine 10/06/2014 8:50 AM Re sults for this PATHOLOGY TECHNICIAN procedure are i n the results section. ALBUMIN, S/P Routine 10/06/2014 8:50 AM Results f or this PATHOLOGY TECHNICIAN procedure are i n the results section. documented in this encounter Results PT (Prothrombin Time) with INR (10/06/2014 8:50 AM PATHOLOGY TECHNICIAN) Analysis Performed At [facility] logist Time Signature INR 0.93 0.90 - 1.16 POWERCHART Prothrombin 9.5 8.7 - 11.8 POWERCHART Time, P SECONDS Specimen (Source) Anatomical Collection Method Collection Time Re ceived Time Location / / Volume Laterality Blood 10/06/2014 8:50 AM PATHOLOGY TECHNICIAN Mary Varma APRN, C.N.P., D.N.P. LAB BLOOD ADD-ON Performing Organization Address City/State/ZIP Code Phon e Number POWERCHART HCV RNA Detect / Quant (10/06/2014 8:50 AM PATHOLOGY TECHNICIAN) [facility] gist Method Time Signature HCV RNA See Comment POWERCHART Detect/Quant, S Comment: HCV RNA Detect/Quant, S was cancelled on 10/07/2014 at 10:40; Quantification not performed due to negative HCV antibody result. Test Performed by: [place] [address] Camp Housekeeper: Lee Coburn Specimen (Source) Anatomical Collection Method Collection Time Re ceived Time Location / / Volume Laterality Blood 10/06/2014 8:50 AM PATHOLOGY TECHNICIAN Angy Schmidt APRN.N.P., D.N.P. LAB MICROBIOLOGY - BLOOD ORDERABLES Performing Organization Address [facility] Phon e Number POWERCHART HXZZORDERS (10/06/2014 8:50 AM PATHOLOGY TECHNICIAN) athologist Signature HXHep C Negative Negative POWERCHART Ab-Beals Comment: Kwugjq-xs-klrdhg ratio is <1.00. Test Performed by: [place] [address] Camp Housekeeper: Lee Coburn Specimen (Source) Anatomical Collection Method Collection Time Re ceived Time Location / / Volume Laterality Blood 10/06/2014 8:50 AM PATHOLOGY TECHNICIAN Mary Varma APRN C.N.P., D.N.P. LAB HISTORICAL ORDE RS Performing Organization Address [facility] Phon e Number POWERCHART Hepatitis Be Ag (10/06/2014 8:50 AM PATHOLOGY TECHNICIAN) athologist Signature Hepatitis Be Negative Negative POWERCHART Ag, S Comment: Test Performed by: [place] [address] Camp Housekeeper: Lee Coburn Specimen (Source) Anatomical Collection Method Collection Time Re ceived Time Location / / Volume Laterality Blood 10/06/2014 8:50 AM PATHOLOGY TECHNICIAN Mary Varma APRN, C.N.P., D.N.P. LAB BLOOD ADD-ON Performing Organization Address [facility] Phon e Number POWERCHART HBe Antibody (10/06/2014 8:50 AM PATHOLOGY TECHNICIAN) athologist Signature HBe Antibody, Negative Negative POWERCHART S Comment: Test Performed by: [place] [address] Camp Housekeeper: Lee Coburn Specimen (Source) Anatomical Collection Method Collection Time Re ceived Time Location / / Volume Laterality Blood 10/06/2014 8:50 AM PATHOLOGY TECHNICIAN Barbara Schmidt APRN.Igor, Suhas.N.PDann LAB MICROBIOLOGY - BLOOD ORDERABLES Performing Organization Address [facility] Phon e Number POWERCHART Hepatitis B Surface Antigen (10/06/2014 8:50 AM PATHOLOGY TECHNICIAN) P athologist Signature HBs Antigen, S Negative Negative POWERCHART Comment: Test Performed by: [facility] [address] [place] [address] Camp Housekeeper: Lee Coburn Specimen (Source) Anatomical Collection Method Collection Time Re ceived Time Location / / Volume Laterality Blood 10/06/2014 8:50 AM PATHOLOGY TECHNICIAN Esperanza Schmidt APRNN.PDann, D.N.PDann LAB MICROBIOLOGY - BLOOD ORDERABLES Performing Organization Address City/[facility] Code Phon e Number POWERCHART Hepatitis B Surface, Ab (10/06/2014 8:50 AM PATHOLOGY TECHNICIAN) P athologist Signature HBs Antibody, Positive POWERCHART S Comment: Patient is considered to be immune to in fection with HBV. REFERENCE VALUE------ Unvaccinated: Negative Vaccinated: Positive HX Hep Bs Ab n-Beals 22.3 [facility] Comment: REFERENCE VALUE------ Unvaccinated: <5.0 Vaccinated: >=12.0 Test Performed by: [facility] [address] [place] [id number] Camp Housekeeper: Lee Coburn Specimen (Source) Anatomical Collection Method Collection Time Re ceived Time Location / / Volume Laterality Blood 10/06/2014 8:50 AM PATHOLOGY TECHNICIAN Mary Varma APRN, C.N.P., Suhas.N.P. LAB MICROBIOLOGY - BLOOD ORDERABLES Performing Organization Address City/State/ZIP Code Phon e Number POWERCHART Iron and Total Iron-Binding Capacity (10/06/2014 8:50 AM PATHOLOGY TECHNICIAN) athologist Signature Iron 118 35 - 145 POWERCHART MCGDL Total Iron 254 250 - 400 POWERCHART Binding Capacity MCGDL Percent 46 14 - 50 POWERCHART Saturation Comment: Test Performed by: [facility] [place] [address] Camp Housekeeper: Lee Coburn Specimen (Source) Anatomical Collection Method Collection Time Re ceived Time Location / / Volume Laterality Blood 10/06/2014 8:50 AM PATHOLOGY TECHNICIAN Mary Varma APRN, C.N.P., Suhas.N.P. LAB BLOOD ADD-ON Performing Organization Address City/[facility] Code Phon e Number POWERCHART AFP (Alpha-Fetoprotein) Tumor Marker (10/06/2014 8:50 AM PATHOLOGY TECHNICIAN) athologist Signature HX AFP-Beals 5.8 NG[facility] POWERCHART Comment: REFERENCE VALUE------ <6.0 Reference values are for non- subjects only; production of AFP elevates values in women. ADDITIONAL INFORMATIO N The testing method is an immunoenzymatic assay manufactured by [employer] and performed on the Whereoscope DxI 800. Values obtained with different assay met hods or kits may be different and cannot be used interchangeably. Test results cannot be interpreted as ab solute evidence for the presence or absence of malignant disease. Alpha-Fetoprotein values are not interpr etable in females for the investigation o f malignant disease. Test Performed by: [facility] [employer] - [address] [address] Camp Housekeeper: Lee Coburn Specimen (Source) Anatomical Collection Method Collection Time Re ceived Time Location / / Volume Laterality Blood 10/06/2014 8:50 AM PATHOLOGY TECHNICIAN Esperanza Schmidt APRNN.Igor, D.N.P. LAB BLOOD ADD-ON Performing Organization Address City/State/ZIP Code Phon e Number POWERCHART Albumin (10/06/2014 8:50 AM PATHOLOGY TECHNICIAN) P athologist Signature Albumin, S 4.1 3.5 - 5.0 POWERCHART GDL Specimen (Source) Anatomical Collection Method Collection Time Re ceived Time Location / / Volume Laterality Blood 10/06/2014 8:50 AM PATHOLOGY TECHNICIAN Angy Schmidt APRN.N.P., D.N.P. LAB BLOOD ADD-ON Performing Organization Address City/[facility]/ZIP Code Phon e Number POWERCHART Alkaline Phosphatase (10/06/2014 8:50 AM PATHOLOGY TECHNICIAN) P athologist Signature Alkaline 63 55 - 142 UL POWERCHART Phosphatase, S Specimen (Source) Anatomical Collection Method Collection Time Re ceived Time Location / / Volume Laterality Blood 10/06/2014 8:50 AM PATHOLOGY TECHNICIAN Esperanza Schmidt APRNN.P., D.N.P. LAB BLOOD ADD-ON Performing Organization Address City/State/ZIP Code Phon e Number POWERCHART (ABNORMAL) GGT (Gamma-Glutamyltransferase) (10/06/2014 8:50 AM PATHOLOGY TECHNICIAN) Component Value Ref Test Analysis Performed At Patholo gist Range Method Time Signature Gamma 119 (H) 6 - 29 POWERCHART Glutamyltransferase UL (GGT), S Specimen (Source) Anatomical Collection Method Collection Time Re ceived Time Location / / Volume Laterality Blood 10/06/2014 8:50 AM PATHOLOGY TECHNICIAN Angy Schmidt APRN.N.P., D.N.P. LAB BLOOD ADD-ON Performing Organization Address City/State/ZIP Code Phon e Number POWERCHART Bilirubin Direct (10/06/2014 8:50 AM PATHOLOGY TECHNICIAN) P athologist Signature Bilirubin, 0.1 0.0 - 0.3 POWERCHART Direct, S MGDL Specimen (Source) Anatomical Collection Method Collection Time Re ceived Time Location / / Volume Laterality Blood 10/06/2014 8:50 AM PATHOLOGY TECHNICIAN Angy Schmidt APRN.N.P., D.N.P. LAB BLOOD ADD-ON Performing Organization Address City/State/ZIP Code Phon e Number POWERCHART Bilirubin, Total (10/06/2014 8:50 AM PATHOLOGY TECHNICIAN) P athologist Signature Bilirubin, 0.3 0.1 - 1.0 POWERCHART Total, S MGDL Specimen (Source) Anatomical Collection Method Collection Time Re ceived Time Location / / Volume Laterality Blood 10/06/2014 8:50 AM PATHOLOGY TECHNICIAN Angy Schmidt APRN.N.P., D.N.P. LAB BLOOD ADD-ON Performing Organization Address City/State/ZIP Code Phon e Number POWERCHART documented in this encounter Visit Diagnoses Not on filedocumented in this encounter
--- OUTSIDE RECORDS SUMMARY | 2022-05-06 13:11 | XMS_ITS | Encounter Summary ---
:1935 Author Organization [facility] Address [address] [place] [address] Care Team Providers Name Role Phone Unavailable Primary Care Provider Unavailable Encounter Details Date Type Department Care Team Description 10/02/2014 Hospital Encounter HX [facility] ULTRASOUN [place] Varma APRN, C.N.P., D. N.P. [address] [place] [address] (Wo rk) Social History Tobacco [...] Miscellaneous - [place] Varma APRN, C.N.P. - 10/03/2014 8:49 AM CST Normal Results Letter 03 October 2014 BRIANA HOWELLENTZ [address] [place] [id number] Dear BRIANA MATHEWZ, I am pleased to report that your results from the following diagnostic carotid ultrasound test is normal. Please follow up with us as we discussed during your visit or sooner if you have any concerns. If you have questions or concerns, please do not hesitate to call our office. Result Name Current Result Previous Result Normal Range US Carotid Duplex Bilat 10/02/2014 WBC (x10(9)/L) 4.8 10/02/2014 3.8 09/05/2013 3.4 - 10.5 RBC (x10(12)/L) 4.45 10/02/2014 4.21 09/05/2013 3.90 - 5.03 Hgb (g/dL) 13.4 10/02/2014 13.2 03/01/2014 12.0 - 15.5 Hct (%) 40.4 10/02/2014 38.0 09/05/2013 34.9 - 44.5 MCV (fL) 90.8 10/02/2014 90.3 09/05/2013 82.0 - 98.0 RDW (%) 12.5 10/02/2014 12.5 09/05/2013 11.9 - 15.5 Platelet (x10(9)/L) 199 10/02/2014 187 09/05/2013 150 - 450 TSH (mIU/L) 2.13 10/02/2014 0.27 - 4.20 ALT (unit/L) (H) 93 10/02/2014 (H) 49 09/05/2013 7 - 45 AST (unit/L) (H) 52 10/02/2014 (H) 33 09/05/2013 8 - 43 AGAP (mmol/L) 11 10/02/2014 14 09/05/2013 10 - 20 BUN (mg/dL) (H) 26 10/02/2014 15 09/05/2013 7 - 18 Chloride (mmol/L) 102 10/02/2014 98 09/05/2013 98 - 107 CO2 (mmol/L) (H) 29.1 10/02/2014 28.9 09/05/2013 23.0 - 29.0 Creatinine (mg/dL) 0.88 10/02/2014 0.96 09/05/2013 0.60 - 1.30 lbrdrtGlucose Lvl (mg/dL) 72 10/02/2014 74 05/23/2013 70 - 139 Calcium Lvl (mg/dL) 10.1 10/02/2014 9.1 09/05/2013 8.8 - 10.2 Sodium Lvl (mM/L) 138.2 10/02/2014 136.5 09/05/2013 135.0 - 145.0 Potassium Lvl (mmol/L) 4.3 10/02/2014 4.1 09/05/2013 3.6 - 4.8 EGFR (MDRD) (mL/min/1.73m2) >60 10/02/2014 (L) 56 09/05/2013 >=60 - EGFR (MDRD) (mL/min/1.73m2) >60 10/02/2014 >60 09/05/2013 >=60 - Sincerely, [place] VARMA [id number] [address] Electronic Signature Electronically Signed By: [place]IA VARMA RN, RESEARCH LABORATORY TECHNICIAN On: 03 October 2014 This document has images extracted. Source: [email or web address] Document Id: [id number] Miscellaneous - Conversion, Historical Provider Ser - 10/02/2014 11:59 PM EXCELLENCE CONSULTANT Coding Summary-Paper Based CODING DATE: 10/05/2014 FINAL [place] [facility] STATUS: * Discharged to Home [...] terminology. Coded By: DIANE CONNORS Date Saved: 10/05/2014 01:49 pm Source: [email or web address] Document Id: [id number] documented in this encounter Plan of Treatment Not on filedocumented as of this encounter Visit Diagnoses Not on filedocumented in this encounter
--- OUTSIDE RECORDS SUMMARY | 2022-05-06 13:11 | XMS_ITS | Encounter Summary ---
:1935 Author Organization [facility] Address [address] [place] [address] Care Team Providers Name Role Phone Unavailable Primary Care Provider Unavailable Encounter Details Date Type Department Care Team Description 04/11/2015 Hospital En[facility] Aries Camacho M.D. [address] [place], [place] [phone] (Wo rk) Social History [...] documented as of this encounter Procedure Notes Laura Rodgers R.T.(R)(CT)Antonia(Grayson) - 04/11/2015 9:17 AM CDT Peripheral IV Peripheral IV Entered On: 04/11/2015 9:18 CDT Performed On: 04/11/2015 9:17 CDT by LAURA RODGERS Peripheral IV Peripheral IV Assess/Intervention Grid Peripheral IV #1 IV Activity : Start, Discontinue Removal : Catheter intact, Hemostasis within expected timeframe Number of Attempts : 1 Date of Insertion : 04/11/2015 CDT IV Site : Antecubital Laterality : Right Catheter Size : 20 Catheter Type : Protective Site Condition : No complications Flow/ Patency : No complications Comments (Comment: LS [LAURA RODGERS - 04/11/2015 9:17 CDT] ) LAURA RODGERS - 04/11/2015 9:17 CDT Source: [employer] Document Id: [id number]!14 documented in this encounter Miscellaneous Notes Miscellaneous - Conversion, Historical Provider Ser - 04/11/2015 11:59 PM CDT Coding Summary-Paper Based CODING DATE: 04/16/[address] 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 However, the narrative phrase printed from the coding software may appear abbreviated, or result in slightly different terminology. Coded By: MONE RESENDIZ Date Saved: 04/16/2015 01:27 pm Source: [employer] Document Id: [id number] Miscellaneous - Aries Camacho M.D. - 04/11/2015 1:29 PM CDT Results Notification Document Contains Addenda Addendum by BELLO WILSON RN on 11 April 2015 13:47:17 CDT Called and notified of negative results. From: ARIES CAMACHO MD To: Ears/Nose/Throat Nurse; Sent: 04/11/2015 13:29:54 CDT Show up: 04/11/2015 13:30:00 CDT Subject: Results Notification please call - negative for tumor. no visible explaination for hoarseness. Results: Date Result Type Result Name 04/11/2015 10:[address] Neck w/ contrast Source: [employer] Document Id: [id number] Electronically signed by Conversion, [employer] Multimedia Production Assistant [id number] at 02/09/2017 12:35 AM CDT Miscellaneous - Laura Rodgers R.T.(Grayson)(CT), Antonia(R) - 04/10/2015 3:11 PM CDT *General Message Document Contains Addenda Addendum by BELLO WILSON RN on 10 April 2015 16:07:35 CDT Done. Thank you. From: LAURA RODGERS To: Ears/Nose/Throat Nurse; Sent: 04/10/2015 15:11:02 CDT Subject: *General Message Please enter Creatine/GFR lab orders for Kathryn Leon, : 06. She has a Soft Tissue Neck CT tomorrow morning, 03/12/15, at 8am. Thank you, Laura Rodgers, Radiology Phone: [phone] Source: [employer] Document Id: [id number] Electronically signed by Conversion, [employer] Mult[employer] Production Assistant [id number] at 02/09/2017 12:35 AM CDT documented in this encounter Plan of Treatment Not on filedocumented as of this encounter Visit Diagnoses Not on filedocumented in this encounter
--- OUTSIDE RECORDS SUMMARY | 2022-05-06 13:11 | XMS_ITS | Encounter Summary ---
:1935 Author Organization [facility] Address [address] [place] [address] Care Team Providers Name Role Phone Unavailable Primary Care Provider Unavailable Encounter Details Date Type Department Care Team Description 10/30/2015 Hospital Encounter HX [facility] Tadeo Jefferson, P.ADann-C. [address] [place] [phone] (Wo rk) Social History Tobacco [...]
--- OUTSIDE RECORDS SUMMARY | 2022-05-06 13:11 | XMS_ITS | Encounter Summary ---
:1935 Author Organization [facility] Address [address] [place] [address] Care Team Providers Name Role Phone Unavailable Primary Care Provider Unavailable Encounter Details Date Type Department Care Team Description 04/10/2014 Hospital Encounter HX [facility] Mary Varma, CYRIL, C.N.P., D. N.P. [address] [place] [address] (Wo rk) Social History Tobacco Use Types Packs/Day Years Used Date Smoking Tobacco: Never Assessed Sex Assigned at Date Recorded Not on file documented as of this encounter Last Filed Vital Signs Vital Sign Reading Time Taken Comments Blood Pressure 128/48 04/10/2014 11:17 AM CDT Pulse 72 04/10/2014 11:11 AM CDT Temperature - - Respiratory Rate - - Oxygen Saturation - - Inhaled Oxygen Concentration - - Weight 74.2 kg (163 lb 9.3 oz) 04/10/2014 11:11 AM CDT Height - - Body Mass Index 29.42 02/28/2014 9:25 AM CDT documented in this [...] as of this encounter Progress Notes Mary Varma APRN, C.N.P. - 04/10/2014 10:45 AM CDT [id number] CHIEF COMPLAINT/REASON FOR VISIT Hand injury. HISTORY OF PRESENT ILLNESS Kathryn is a very pleasant 79-year-old female who comes in today after falling 2 weeks ago. She got twisted up with her cat and fell to the ground on her left hand. She states she had originally had some swelling on her hand which has slowly been resolving and improving; however, she is having more difficulty grabbing objects. Pain predominantly in her pinky and thumb area. She has been using Tylenol p.r.n. and just wants to be sure that she does not have a fracture. She denies any pain significantly in her wrist but has noted a fair amount of tenderness. She is able to move all her extremities without difficulty, just causes her a little more discomfort. MEDICATIONS Please see the EMR. ALLERGIES Please see the EMR. VITAL SIGNS Please see the EMR. PHYSICAL EXAMINATION GENERAL: Patient appears nondistressed. EXTREMITIES: On her left hand she does have some swelling, especially noted on the dorsal portion ofher hand. She has more tenderness at the 4th and 5th metacarpals that are pretty significant. She does not have any significant wrist pain except for when she has hyperflexion. She has good CMS distal to the injury, and she is able to move all her fingers and has strength in each one of those fingers that is symmetrical. DIAGNOSTICS X-ray performed on both her hand and her wrist. No fractures were identified. IMPRESSION/REPORT/PLAN 1. Left hand injury. I suspect this is a sprain that is pretty significant. We will use an Sae wrap on her hand and give her at least another week. If she finds no improvement in her symptoms, I would consider having her see occupational therapy, as I think that would be very beneficial for her also with strengthening. She agrees with that plan. 2. Oral juan manuel. Patient has a longstanding history of having oral juan manuel. She again has the film on her tongue. I will go ahead and treat with nystatin swish and spit for 7 days as directed. I will also start her on some acidophilus tablets. She will report if no improvement or any worsening symptoms. Aakash Quiroga/farhat Electronically Signed By: MARY VARMA RN, CNP On: 04/12/2014 04:19 PM Source: [id number] Document Id: [id number] documented in this encounter Miscellaneous Notes Miscellaneous - Madhavi Perdomo R.N. - 05/31/2014 9:26 AM CDT pre op question? Document Contains Addenda Addendum by MADHAVI PERDOMO RN on 31 May 2014 14:35:40 CDT called to pt, she will make sure eye dr is good with the copy they have Addendum by MADHAVI PERDOMO RN on 31 May 2014 14:29:50 CDT From: MADHAVI PERDOMO RN To: SUJATHA MAR LPN; Sent: 05/31/2014 14:29:50 CDT Subject: FW: pre op question? Addendum by MARY VARMA RN, CNP on 31 May 2014 10:06:43 CDT From: MARY VARMA RN, IVANA To: MADHAVI PERDOMO RN; Sent: 05/31/2014 10:06:43 CDT Subject: RE: pre op question? no not unless they request it or her health has changed From: MADHAVI PERDOMO RN To: MARY VARMA RNIVANA; MADHAVI PERDOMO RN; Sent: 05/31/2014 09:26:17 CDT Subject: pre op question? Kathryn had preop and EKG with you on 02-28-14 for her eye surgery with Dr. Cadena, [facility]. surgery was canceled and rescheduled for 07-24-14. It is less than 6 months, does she need to repeat, or does she need to come in for an update? pt number [phone] Source: [facility] [facility] Document Id: [id number] Electronically signed by Dustin [facility] Account Installer [id number] at 02/10/2017 3:53 PM CDT Payton - Lian Noonan LDannP.N. - 04/10/2014 11:17 AM CDT Ambulatory Vitals Height Weight Ambulatory Vitals Height Weight Entered On: 04/10/2014 11:18 CDT Performed On: 04/10/2014 11:17 CDT by LIAN NOONAN LPN, RT Vitals/Ht/Wt Systolic Blood Pressure : 128 mmHg Diastolic Blood Pressure : 48 mmHg (<LLOW) NIBP Mean : 75 mmHg BP Location : Left upper extremity Blood Pressure Cuff Size : Regular LIAN NOONAN LPN, RT - 04/10/2014 11:17 CDT Source: [facility] Document Id: [id number] CDT!7 Payton - Lian Noonan L.P.N. 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 Temperature Core : 36.1 DegC(Converted to: 97.0 DegF) (LOW) Peripheral Pulse Rate : 72 /min Systolic Blood Pressure : 130 mmHg Diastolic Blood Pressure : 53 mmHg NIBP Mean : 79 mmHg BP Location : Left upper extremity Blood Pressure Cuff Size : Regular Actual Weight : 74.2 kg(Converted to: 163 lb 9 oz) Weight Source : Standing scale Dosing Weight Clinic : 74.2 kg LIAN NOONAN LPN, RT 04/10/2014 11:11 CDT General Info Information Given By : Patient Preferred Communication Mode : Verbal Languages : [place] LIAN NOONAN LPN, 04/10/2014 11:11 CDT Subjective Pain Symptoms : Yes LIAN NOONAN LPN, RT 04/10/2014 11:11 CDT Pain Pain Assessment Grid Pain 1 Location : Hand Laterality : Left LIAN NOONAN LPN, 04/10/2014 11:11 CDT Dependent Habits Tobacco Use/Currently Using : No Exposure to Tobacco Smoke : Care provider denies smoking in home Smoking Status : Never smoker LIAN NOONAN LPN, RT 04/10/2014 11:11 CDT Tobacco Use Grid Last Use : never LIAN NOONAN LPN, 04/10/2014 11:11 CDT Caffeine Use Grid Caffeine Use : Current Type : Coffee Frequency : Weekly LIAN NOONAN LPN, RT 04/10/2014 11:11 CDT Recreational Drug Use Grid Drug Use : None LIAN NOONAN LPN, 04/10/2014 11:11 CDT Source: [facility] [place] Document Id: [id number] CDT!39 documented in this encounter Plan of Treatment Not on filedocumented as of this encounter Visit Diagnoses Not on filedocumented in this encounter
--- OUTSIDE RECORDS SUMMARY | 2022-05-06 13:11 | XMS_ITS | Encounter Summary ---
:1935 Author Organization [facility] Address [address] [place] [address] Care Team Providers Name Role Phone Unavailable Primary Care Provider Unavailable Encounter Details Date Type Department Care Team Description 06/03/2015 Hospital Encounter HX [facility] ED Cristina Villagomez M.D. [address] [place] [address] 021 (Wo rk) Social History Tobacco Use Types Packs/Day Years Used Date Smoking Tobacco: Never Assessed Sex Assigned at Date Recorded Not on file documented as of this encounter Last Filed Vital Signs Vital Sign Reading Time Taken Comments Blood Pressure 159/70 06/03/2015 9:01 PM CDT Pulse 96 06/03/2015 9:01 PM CDT Temperature - - Respiratory Rate 18 06/03/2015 9:01 PM CDT Oxygen Saturation - - Inhaled Oxygen Concentration - - Weight - - Height - - Body Mass Index - - documented in this encounter Discharge Summaries Addis Montoya, RDannN. - 06/03/2015 10:25 PM CDT ED Discharge Instructions [address] [address] Name: KATHRYN LEON Date of : 1935 12:00 AM Visit Date: 06/03/2015 8:54 PM [facility] Number: [id number] Address: [address] [place] [phone] Primary Care Provider: ALBANIA VARMA RN, AUTOMATIC BRINE MIXER OPERATOR IMPORTANT: [facility] in [place] would like to thank you for allowing us to assist you with your healthcare needs. The following includes patient education materials and informationregarding your injury/illness. Diagnosis: Numbness NOS; Reaction Allergic Pers Hx Follow-Up Instructions: With: Address: When: ALBANIA KOJO [address] [address] Business (1) Within As Needed Your Upcoming Appointments: Date Time Location Provider No Appointments found Patient Education Materials: Food Allergy Some persons are sensitive to certain foods. Avoiding these foods is the best treatment. Symptoms of food allergy may begin within minutes up to two hours after eating. Symptoms cause nausea, vomiting, diarrhea or stomach cramps, itchy rash (hives), swelling of the eyes, lips, face or tongue, wheezing, difficulty breathing or swallowing, throat tightness, dizziness or fainting. This kind of allergy can be life-threatening, but in mild-moderate cases symptoms resolve within 6 to 24 hours.Persons with certain health conditions, such as asthma and eczema, are prone to food allergies. Foods that commonly cause an allergic reaction include milk, eggs, peanuts, tree nuts, fish or shellfish,and wheat. But be aware that any food can cause a reaction. Treatment for a severe allergic reaction (anaphylaxis) is epinephrine. A person with a severe food allergy should carry this medication for self-injection. This is available by prescription. Brands include EpiPen, Adrenaclick, and Twinject. Home Care: ?? If symptoms were moderate to severe, rest at home for the next 24 hours. ?? Avoid tobacco and alcohol consumption. These may worsen symptoms. ?? If you know what foods caused your reaction today, avoid them in the future. The next reaction islikely to be worse. Let your family members, friends and personal physician know about your food allergy. ?? Learn how to read food labels so you can check for the substance that you reacted to. If the product does not have a label, it is best t o avoid it. When in restaurants, ask about ingredients. ?? If your reaction was severe, obtain a medical alert bracelet or necklace noting your allergy. ?? If epinephrine is prescribed, carry it at all times. Learn how to use the device. If you begin tofeel the symptoms of another reaction, use the epinephrine to inject yourself right away, and call 911. Dont wait until symptoms become [...] trouble urinating due to an enlarged prostate.] YOU MAY USE BENADRYL 25-50 MG EVERY HOURS FOR THE NEXT 24 HOURS.CONTINUE DAILY ROCHELLE-D. IN ADDITION, YOU WERE GIVEN A DOSE OF RANITIDINE 150 MG THAT DOES NOT NEEDTO BE REPEATED. Follow Up with your doctor or as advised if you are not improving over the next 2 to 3 days. If you do not know what caused this reaction, skin tests and blood tests, or an elimination diet may be helpful. You may locate an economic specialist in your area by contacting: ?? [employer] www.aaaai.org ?? [employer] [email or web address].org Get Prompt Medical Attention if any of the following occur: ?? Worsening of your symptoms ?? New or worse swelling in the face, eyelids, lips, mouth, throat or tongue ?? Trouble swallowing or breathing ?? Dizziness, weakness or fainting ?? Fever of 100.4??F (38??C) or higher, or as directed by your healthcare provider ?? Severe constant lower right abdominal pain ?? Persistent vomiting (unable to keep liquids down) or constant diarrhea ?? Blood or mucus in the stool ?? [id number] [facility], [address] [place] [address], [place] [address]. All rights reserved. This information is not [...] if you dont have one. Go to [email or web address] and click on Create Your Account. Then, follow the directions to complete the online form. Youll be asked for your [facility] number which you can find at the top of this document. ED Tests and Procedures: Order Status Discharge Prescriptions & Home Medications: Medication/Strength Dose Route Frequency Indications/Special Instructions/Comments/Notes omeprazole (omeprazole 40 mg oral delayed release capsule) 40 mg Oral two times a day 30-60 min prior to meals / last saw patient 03/30/15, no mention of f/u, but referred patient to Dr. Mosley at [facility] fluticasone nasal (Flonase 0.05 mg/inh nasal spray) 2 spray(s) Nostrils(Both) once a day estradiol topical (Vagifem 10 mcg vaginal tablet) 10 mcg Vaginal 2 times a week Member No [phone] meclizine (meclizine 12.5 mg oral tablet) 1-2 tab(s) Oral three times a day as needed for Dizziness gabapentin (gabapentin 300 mg oral capsule) 900 mg Oral once a day fexofenadine-pseudoephedrine (Rochelle-D 12 Hour 60 mg-120 mg oral tablet, extended release) 1 tab(s)Oral two times a day [email or web address] [phone] ferrous sulfate (ferrous sulfate 325 mg (65 mg elemental iron) oral tablet) 325 mg Oral once a day ibuprofen (ibuprofen 600 mg oral tablet) See Instructions Pain 1 tab(s) PO three times per day with food as needed calcium citrate (Citracal) 1tab two [...] nurse or physician. Patient Signature or Responsible Green Party/Relationship Date Time Provider Signature Date Time [...] a ride home with a responsible republican. I, KATHRYN LEON , or responsible republican have received this information and my questions have been answered. I have discussed any challenges I see with this plan with the nurse or physician. Patient Signature or Responsible Green Party/Relationship Date Time Provider Signature Date Time This document has images extracted. Please consider using [employer] for all your patient education needs. Source: [facility] POWERCHART Document Id: [id number] Addis Montoya R.N. - 06/03/2015 10:25 PM CDT ED Depart Summary [facility] Emergency Department Clinical Discharge Summary PERSON INFORMATION Name KATHRYN LEON Age 80 Years 1935 12:00 AM Sex Female Language Emirati PCP ALBANIA VARMA RN, AUTOMATIC BRINE MIXER OPERATOR Marital Status Visit Id Visit Reason Allergic reaction - minor; Possible Alergic reaction, throat swelling Specialty Enc Type Emergency Med Service Emergency Medicine Referred by Track Group [facility] ED Discharge 06/03/2015 10:13 PM Tracking Id [id number] Checkout 06/03/2015 10:13 PM Checkin 06/03/2015 8:54 PM Acuity 3 -Urgent Dispo Type * Discharged to Home or Self Care Arrival 06/03/2015 8:54 PM Reg Status Complete LOS 000 01:19 Address: [address] [place], [place] [id number] Comment: PROVIDER INFORMATION Provider Role Provider Contact Time AZAR VILLAGOMEZ MD ED Provider 06/03/15 21:02 ADDIS MONTOYA COMPENSATION PROGRAMS MANAGER Nurse 06/03/15 21:12 DIAGNOSIS Numbness NOS; Reaction Allergic Pers Hx Comment: PATIENT EDUCATION INFORMATION Instructions: FOOD ALLERGY Follow up: With: Address: When: ALBANIA VARMA [address] [place] [address] [place] [address] Business (1) Within As Needed Source: [facility] POWERCHART Document Id: [id number] documented in this encounter Medications at Time [...] documented as of this encounter ED Notes Addis Montoya, R.N. - 06/03/2015 10:23 PM CDT ED Disposition Summary ED Disposition Summary Entered On: 06/03/2015 22:23 CDT Performed On: 06/03/2015 22:23 CDT by ADDIS MONTOYA RN ED Disposition Summary Accompanied By : Significant other Mode of Discharge : Ambulatory Transportation : Private vehicle Printed Discharge Instructions Given to Patient : Yes Patient Status at Discharge from ED : Unchanged ADDIS MONTOYA RN - 06/03/2015 22:23 CDT Source: Original Document Id: [id number]!7 Addis Montoya R.N. - 06/03/2015 10:23 PM CDT ED Pain Assessment ED Pain Assessment Entered On: 06/03/2015 22:23 CDT Performed On: 06/03/2015 22:23 CDT by ADDIS MONTOYA RN Pain Assessment Pain Symptoms : No ADDIS MONTOYA RN - 06/03/2015 22:23 CDT Source: Original Document Id: [id number]!3 Azar Villagomez M.D. - 06/03/2015 9:19 PM CDT Allergic reaction - minor Patient: KATHRYN LEON Age: 80 years Sex: Female : 1935 Author: AZAR VILLAGOMEZ MD Attachments: None Associated Diagnosis: Numbness NOS; Reaction Allergic Pers Hx Basic Information Time seen: Date & time 06/03/2015 21:19:00. History source: Patient, significant other. Arrival mode: Private vehicle, walking. History limitation: None. Additional information: Chief Complaint from Nursing Triage Note : Chief Complaint Description 06/03/2015 21:01 CDT Chief Complaint Description ate a cookie that possible had nuts in it. ate one at 1500 then ante another at 2000. last reacton happened 40 years ago lep and throuth feel tingly . History of Present Illness 40 years ago Kathryn had hives after eating cookies that contained nuts. She has been very careful since then, and has never had a reaction. However, today she had some chocolate chip cookies baked by someone other than herself. She had her first cookie at 1400, and then another at 2000. Her upper lip and the back of her throat felt a little itchy. She took Benadryl 25 mg. She mentions that when she went to the [facility] this year, she ate some taffy and had a similar sensation in her mouth. Since she and her are planning a trip, she requested an Epi-Pen from her provider. She has never used one. She does not feel the need to use it now. She denies dyspnea, nausea, vomiting, dizziness, or rash. 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 The patient presents with Tingly/numb sensation on upper lip and back of throat. The onset was 2 hours ago. The course/duration of symptoms is improving. Location: Lips throat. The character of symptoms is no rash and no swelling. The degree at onset was minimal. The degree at present is minimal. Potential allergen(s) to food(s): nuts. Risk factors consist of food allergies and previous hives 40 years ago. Avoids nuts.. Prior episodes: rare. Associated symptoms: denies wheezing, denies swelling, denies difficulty swallowing, denies chest pain, denies nausea and denies vomiting. Review of Systems Constitutional symptoms: Negative except as documented in HPI. Skin symptoms: Negative except as documented in HPI. Eye symptoms: Negative except as documented in HPI. ENMT symptoms: No nasal congestion. Respiratory symptoms: No cough. Cardiovascular symptoms: Negative except as documented in HPI. Gastrointestinal symptoms: Negative except as documented in HPI. Genitourinary symptoms: Negative except as documented in HPI. Musculoskeletal symptoms: Negative except as documented in HPI. Neurologic symptoms: No dizziness or no weakness. Hematologic/Lymphatic symptoms: Negative except as documented in HPI. Additional review of systems information: All other systems reviewed and otherwise negative. Health Status Allergies: Allergic Reactions (Selected) Severity Not Documented Glutens- No reactions were documented. Nuts- No reactions were documented. Nonallergic Reactions (Selected) Severity Not Documented Miconazole topical- No reactions were documented.. Medications: Medications reviewed.. Immunizations: Include Immunizations Immunizations reviewed. . Past Medical/ Family/ Social History Medical history: Resolved Glaucoma NOS (365.9): Resolved.. Surgical history: Procedure history reviewed.. Family history: Family history reviewed.. Social history: Tobacco use: Denies, Occupation: Retired, Family/social situation: . Problem list: Problem list reviewed.. Physical Examination Vital Signs: Vital Signs 06/03/2015 21:01 CDT Temperature Core 36.8 DegC Peripheral Pulse Rate 96 /min Respiratory Rate 18 /min SpO2 98 % Systolic Blood Pressure 159 mmHg HI Diastolic Blood Pressure 70 mmHg Mean Arterial Pressure 100 mmHg BP Location Left upper . General: Alert and no acute distress. Skin: Warm, dry, pink and no rash. Head: Normocephalic. Neck: Supple. Eye: Extraocular movements are intact and normal conjunctiva. Ears, nose, mouth and throat: Tympanic membranes clear, Mouth: Normal and Throat: Normal. Cardiovascular: Regular rate and rhythm and No murmur. Respiratory: Lungs are clear to auscultation. Chest wall: No tenderness. Back: Normal alignment. Neurological: Alert and oriented to person, place, time, and situation, normal motor observed and normal speech observed. Lymphatics: No lymphadenopathy. Psychiatric: Cooperative. Medical Decision Making Differential Diagnosis:Allergic reaction, anxiety. Documents reviewed:Emergency department nurses' notes, emergency department records, prior records. OrdersLaunch Orders Pharmacy: Zantac (Order Processing): 150 mg, PO, Once Benadryl (Order Processing): 25 mg, PO, Once. Reexamination/ Reevaluation Time: 06/03/2015 21:54:00 . Course: improving. Assessment: No further lip symptoms. Reaction, if any, is minor. Discussed delayed allergic reactionsymptoms.. Impression and Plan Diagnosis Numbness NOS (Discharge, Emergency medicine, Medical) Reaction Allergic Pers Hx (Discharge, Emergency medicine, Medical) Plan Condition: Stable. Disposition: Medically cleared, Discharged: to home. Prescriptions: Use Benadryl 25-50 mg QID for 24 hours. . Patient was given the following educational materials: FOOD ALLERGY. Follow up with: ALBANIA VARMA Within As Needed. Counseled: Patient, Regarding diagnosis, Regarding treatment plan, Patient indicated understanding of instructions. Electronically Signed By: AZAR VILLAGOMEZ MD On: 06/03/2015 09:55 PM Modified by and Electronically Signed by: AZAR VILLAGOMEZ MD On: 06/03/2015 09:55 PM Source: [facility] POWERCHART Document Id: [id number] Addis Montoya R.N. - 06/03/2015 9:09 PM CDT ED Primary Assessment Document Has Been Updated ED Primary Assessment Entered On: 06/03/2015 21:10 CDT Performed On: 06/03/2015 21:09 CDT by ADDIS MONTOYA RN Reason For Visit (As Of: 06/03/2015 21:10:13 CDT) Problems(Active) Abnormal Liver Function Test (ICD-9-CM :790.6 ) Name of Problem: Abnormal Liver Function Test ; Onset Date: 10/05/2014 ; Recorder: ALBANIA VARMA RN, CNP; Confirmation: Confirmed ; Classification: Medical ; Code: 790.6 ; Contributor System: BMEYE ; Last Updated: 11/17/2014 12:51 ENGINEERING ASSOCIATE ; Life Cycle Status: Active ; Responsible [...] System: PowerChart ; Last Updated: 10/25/2010 20:18 ENGINEERING ASSOCIATE ; Life Cycle Date: 10/25/2010 ; Life Cycle Status: Active ; Responsible Provider: PATTI ALMENDAREZ LPN; Vocabulary: ICD-9-CM Atrophic vaginitis (ICD-9-CM :627.3 ) Name of Problem: Atrophic vaginitis ; Onset Date: 07/27/2012 ;Recorder: ALBANIA VARMA RN, CNP; Confirmation: Confirmed ; Classification: Medical ; Code: 627.3 ; Last Updated: 07/27/2012 11:32 ENGINEERING ASSOCIATE ; Life Cycle Status: Active ; Responsible Provider: ALBANIA VARMA CNP; Vocabulary: ICD-9-CM Bursitis Hip/Trochanertic (ICD-9-CM :726.5 ) Name of Problem: Bursitis Hip/Trochanertic ; Onset Date: 10/20/2011 ; Recorder: ALBANIA VARMA RN, CNP; Confirmation: Confirmed ; Classification: Medical ; Code: 726.5 ; Last Updated: 10/20/2011 9:54 ENGINEERING ASSOCIATE ; Life Cycle Status: Active ; Responsible Provider: ALBANIA VARMA RN, CNP; Vocabulary: ICD-9-CM Cataract NOS (ICD-9-CM :366.9 ) Name of Problem: Cataract NOS ; Onset Date: 1991 ; Recorder: PATTI ALMENDAREZ LPN; Confirmation: Confirmed ; Classification: Nursing ; Code: 366.9 ; Contributor System: BMEYE ; Last Updated: 01/21/2011 10:04 CDT ; [...] ContributorSystem: PowerChart ; Last Updated: 10/25/2010 20:20 ENGINEERING ASSOCIATE ; Life Cycle Date: 10/25/2010 ; Life Cycle Status: Active ; Responsible Provider: PATTI ALMENDAREZ LPN; Vocabulary: ICD-9-CM Chest wall pain* (ICD-9-CM :786.52 ) Name of Problem: Chest wall pain* ; Onset Date: 09/05/2013 ; Recorder: ALBANIA VARMA RN, CNP; Confirmation: Confirmed ; Classification: Medical ; Code: 786.52 ; Last Updated: 02/01/2014 16:15 CDT ; Life Cycle Status: Active ; Responsible Provider: ALBANIA VAMRA RN, IVANA; Vocabulary: ICD-9-CM Diverticulitis of large intestine (ICD-9-CM :562.11 ) Name of Problem: Diverticulitis of large intestine ; Onset Date: 10/28/2010 ; Recorder: ALBANIA VARMA RN, IVANA; Confirmation: Confirmed ; Classification: Medical ; Code: 562.11 ; Last Updated: 10/28/2010 16:30 ENGINEERING ASSOCIATE ; Life Cycle Status: Active ; Respo nsible Provider: ALBANIA VARMA RN, IVANA; Vocabulary: ICD-9-CM Eye disorder (ICD-9-CM :379.8 ) Name of Problem: Eye disorder ; Recorder: TAMMY ACEVES MD; Confirmation: Confirmed ; Classification: UPDATE NEEDED ; Code: 379.8 ; Contributor System: BMEYE ; Last Updated: 01/05/2012 19:00 CDT ; Life Cycle Date: 01/05/2012 ; Life Cycle Status: Active ; Responsible Provider: TAMMY ACEVES MD; Vocabulary: ICD-9-CM ; Comments: 01/21/2012 9:37 - MATTHEW BORDEN LPN date unknown Fracture of rib (SNOMED CT :42754612 ) Name of Problem: Fracture of rib ; Onset Date: 05/12/2013 ; Recorder: SUJATHA MAR LPN; Confirmation: Confirmed ; Classification: Nursing ; Code: 21213037 ;Contributor System: Mr. NumberChart ; Last Updated: 06/07/2013 8:10 CDT ; Life Cycle Date: 06/07/2013 ; Life Cycle Status: Active ; Responsible Provider: SUJATHA MAR LPN; Vocabulary: SNOMED CT ; Comments: 06/07/2013 8:10 - SUJATHA MAR LPN left side Glaucoma (ICD-9-CM :365.44 ) Name of Problem: Glaucoma ; Onset Date: 1986 ; Recorder: PATTI ALMENDAREZ LPN; Confirmation: Confirmed ; Classification: Nursing ; Code: 365.44 ; Contributor System: Mr. NumberChart ; Last Updated: 01/21/2011 10:05 CDT ; Life Cycle Date: 10/25/2010 ; Life Cycle Status: Active ; Responsible Provider: ERICKSON, PATTI L DRAW END HAND; Vocabulary: ICD-9-CM ; Comments: 12/31/2010 12:11 - PATTI ALMENDAREZ L DRAW END HAND date unknown Glaucoma (SNOMED CT :23381494 ) Name of Problem: Glaucoma ; Recorder: TAMMY ACEVES MD; Confirmation: Confirmed ; Classification: Medical ; Code: 19664379 ; Contributor System: BMEYE ; Last Updated: 01/05/2012 18:52 CDT ; Life Cycle Date: 01/05/2012 ; Life Cycle Status: Active ; ResponsibleProvider: TAMMY ACEVES MD; Vocabulary: SNOMED CT ; Comments: 01/21/2012 9:37 - SUHAMATTHEW DRAW END HAND date unknown Hernia, hiatal (ICD-9-CM :553.3 ) Name of Problem: Hernia, hiatal ; Onset Date: 10/31/2013 ; Recorder: ALBANIA VARMA RN, CNP; Confirmation: Confirmed ; Classification: Medical ; Code: 553.3 ; Last Updated: 10/31/2013 11:53 ENGINEERING ASSOCIATE ; Life Cycle Status: Active ; Responsible Provider: ALBANIA VARMA RN, CNP; Vocabulary: ICD-9-CM 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 NumberChart ; Last Updated: 11/04/2010 9:49 ENGINEERING ASSOCIATE ; Life Cycle Date: 11/04/2010 ; Life Cycle Status: Active ; Responsible Provider: ALBANIA VARMA RN, CNP; Vocabulary: ICD-9-CM ; Comments: 12/31/201012:11 - PATTI ALMENDAREZ DRAW END HAND date unknown Osteopenia (ICD-9-CM :733.90 ) Name of Problem: Osteopenia ; Onset Date: 02/26/1987 ; Recorder: PATTI ALMENDAREZ LPN; Confirmation: Confirmed ; Classification: Nursing ; Code: 733.90 ; Contributor System: Mr. NumberChart ; Last Updated: 10/25/2010 20:19 ENGINEERING ASSOCIATE ; Life Cycle Date: 10/25/2010 ; Life Cycle Status: Active ; Responsible Provider: PATTI ALMENDAREZ LPN; Vocabulary: ICD-9-CM Diagnoses(Active) Allergic reaction - minor Date: 06/03/2015 ; Diagnosis Type: Reason For Visit ; Confirmation: Complaint of ; Clinical Dx: Allergic reaction - minor ; Classification: Medical ; Clinical Service: Emergency medicine ; Code: PNED ; Probability: 0 ; Diagnosis Code: [id number] Triage Mode of Arrival ED : Private vehicle Track : Medical Languages : Emirati Treatments Prior to Arrival : Home treatments Is Patient Female and 13-50 no hysterectomy : ADDIS Russ RN - 06/03/2015 21:09 CDT Pain Assessment Pain Symptoms : ADDIS Russ RN - 06/03/2015 21:09 CDT Allergy (As Of: 06/03/2015 21:10:14 CDT) Allergies (Active) Glutens Estimated Onset Date: Unspecified ; Created By: PATTI ALMENDAREZ LPN; Reaction Status: Active; Category: Drug ; Substance: Glutens ; Type: Allergy ; Updated By: PATTI ALMENDAREZ LPN; Reviewed Date: 06/03/2015 21:05 CDT miconazole topical Comments: Comment 1: MICONAZOLE NITRATE ; Created By: Contributor_system, [facility]AL[facility]_SYS; Reaction Status: Active ; Category: Drug ; Substance: miconazole topical ; Type: Unknown ;Updated By: Contributor_system [facility]AL[facility]; Reviewed Date: 06/03/2015 21:05 CDT Nuts Estimated Onset Date: Unspecified ; Created By: PATTI ALMENDAERZ LPN; Reaction Status: Active ; Category: Food ; Substance: Nuts ; Type: Allergy ; Updated By: PATTI ALMENDAREZ LPN; Reviewed Date: 06/03/2015 21:05 CDT ID Screen Drug Resistant Organism : ADDIS Russ RN - 06/03/2015 21:09 CDT Respiratory Airway : Patent Respirations : Unlabored Respiratory Pattern : Regular ADDIS MONTOYA RN - 06/03/2015 21:09 CDT Cardiovascular Heart Rhythm : Regular Skin Color : Normal for ethnicity Skin Description : Dry Skin Temperature : Warm ADDIS MONTOYA RN - 06/03/2015 21:09 CDT Neurological Last Well Time Known : Not applicable Level of Consciousness : Alert Orientation : Oriented x 3 Characteristics of Speech : Appropriate for age ADDIS MONTOYA RN - 06/03/2015 21:09 CDT ED Psychosocial Affect/Behavior : Appropriate Domestic Abuse Concerns : None Behavioral Health Screen/Safety Assmt : No ADDIS MONTOYA RN - 06/03/2015 21:09 CDT Gastrointestinal Nutrition ED : Adequate ADDIS MONTOYA RN - 06/03/2015 21:09 CDT Musculoskeletal Fall Prevention Education Provided : NA ADDIS MONTOYA RN - 06/03/2015 21:09 CDT Social Habits Tobacco Use/Currently Using : No Exposure to Tobacco Smoke : Care provider denies smoking in home, Other: never Smoking Status : Smoker, current status unknown ADDIS MONTOYA RN - 06/03/2015 21:09 CDT Alcohol Use Grid Alcohol Use : No ADDIS MONTOYA RN - 06/03/2015 21:09 CDT Recreational Drug Use Grid Drug Use : None ADDIS MONTOYA RN - 06/03/2015 21:09 CDT Source: [facility] [employer]Pal Document Id: [id number]!43 Addis Montoya RChelsey - 06/03/2015 9:01 PM CDT ED Triage Assessment Document Has Been Updated ED Triage Assessment Entered On: 06/03/2015 21:05 CDT Performed On: 06/03/2015 21:01 CDT by ADDIS MONTOYA RN Reason For Visit (As Of: 06/03/2015 21:05:06 CDT) Problems(Active) Abnormal Liver Function Test (ICD-9-CM :790.6 ) Name of Problem: Abnormal Liver Function Test ; Onset Date: 10/05/2014 ; Recorder: ALBANIA VARMA RN, CNP; Confirmation: Confirmed ; Classification: Medical ; Code: 790.6 ; Contributor System: BMEYE ; Last Updated: 11/17/2014 12:51 ENGINEERING ASSOCIATE ; Life Cycle Status: Active ; Responsible [...] System: PowerChart ; Last Updated: 10/25/2010 20:18 ENGINEERING ASSOCIATE ; Life Cycle Date: 10/25/2010 ; Life Cycle Status: Active ; Responsible Provider: PATTI ALMENDAREZ LPN; Vocabulary: ICD-9-CM Atrophic vaginitis (ICD-9-CM :627.3 ) Name of Problem: Atrophic vaginitis ; Onset Date: 07/27/2012 ;Recorder: ALBANIA VARMA RN, CNP; Confirmation: Confirmed ; Classification: Medical ; Code: 627.3 ; Last Updated: 07/27/2012 11:32 ENGINEERING ASSOCIATE ; Life Cycle Status: Active ; Responsible Provider: ALBANIA VARMA CNP; Vocabulary: ICD-9-CM Bursitis Hip/Trochanertic (ICD-9-CM :726.5 ) Name of Problem: Bursitis Hip/Trochanertic ; Onset Date: 10/20/2011 ; Recorder: ALBANIA VARMA RN, CNP; Confirmation: Confirmed ; Classification: Medical ; Code: 726.5 ; Last Updated: 10/20/2011 9:54 ENGINEERING ASSOCIATE ; Life Cycle Status: Active ; Responsible [...] ContributorSystem: PowerChart ; Last Updated: 10/25/2010 20:20 ENGINEERING ASSOCIATE ; Life Cycle Date: 10/25/2010 ; Life [...] Provider: ALBANIA VARMA RN, CNP; Vocabulary: ICD-9-CM Diverticulitis of large intestine (ICD-9-CM :562.11 ) Name of Problem: Diverticulitis of large intestine ; Onset Date: 10/28/2010 ; Recorder: ALBANIA VARMA RN, CNP; Confirmation: Confirmed ; Classification: Medical ; Code: 562.11 ; Last Updated: 10/28/2010 16:30 ENGINEERING ASSOCIATE ; Life Cycle Status: Active ; Respo [...] ; Comments: 01/21/2012 9:37 - MATTHEW BORDEN DRAW END HAND date unknown Fracture of rib (SNOMED CT :55174181 ) Name of Problem: Fracture of rib ; Onset Date: 05/12/2013 ; Recorder: SUJATHA MAR LPN; Confirmation: Confirmed ; Classification: Nursing ; Code: 56933284 ;Contributor System: PowerChart ; Last Updated: 06/07/2013 [...] ALMENDAREZ LPN date unknown Glaucoma (SNOMED CT :76440563 ) Name of Problem: Glaucoma ; Recorder: TAMMY ACEVES MD; Confirmation: Confirmed ; Classification: Medical ; Code: [id number] ; Contributor System: PowerChart ; Last Updated: 01/05/2012 18:52 CDT ; Life Cycle Date: 01/05/2012 ; Life Cycle Status: Active ; ResponsibleProvider: TAMMY ACEVES MD; Vocabulary: SNOMED CT ; Comments: 01/21/2012 9:37 - MATTHEW BORDEN LPN date unknown Hernia, hiatal (ICD-9-CM :553.3 ) Name of Problem: Hernia, hiatal ; Onset Date: 10/31/2013 ; Recorder: ALBANIA VARMA RN, AUTOMATIC BRINE MIXER OPERATOR; Confirmation: Confirmed ; Classification: Medical ; Code: 553.3 ; Last Updated: 10/31/2013 11:53 ENGINEERING ASSOCIATE ; Life Cycle Status: Active ; Responsible Provider: ALBANIA VARMA RN, CNP; Vocabulary: ICD-9-CM 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 NumberChart ; Last Updated: 11/04/2010 9:49 ENGINEERING ASSOCIATE ; Life Cycle Date: 11/04/2010 ; Life Cycle Status: Active ; Responsible Provider: ALBANIA VARMA RN, CNP; Vocabulary: ICD-9-CM ; Comments: 12/31/201012:11 - PATTI ALMENDAREZ LPN date unknown Osteopenia (ICD-9-CM :733.90 ) Name of Problem: Osteopenia ; Onset Date: 02/26/1987 ; Recorder: PATTI ALMENDAREZ LPN; Confirmation: Confirmed ; Classification: Nursing ; Code: 733.90 ; Contributor System: Mr. NumberChart ; Last Updated: 10/25/2010 20:19 ENGINEERING ASSOCIATE ; Life Cycle Date: 10/25/2010 ; Life Cycle Status: Active ; Responsible Provider: PATTI ALMENDAREZ LPN; Vocabulary: ICD-9-CM Diagnoses(Active) Allergic reaction - minor Date: 06/03/2015 ; Diagnosis Type: Reason For Visit ; Confirmation: Complaint of ; Clinical Dx: Allergic reaction - minor ; Classification: Medical ; Clinical Service: Emergency medicine ; Code: PNED ; Probability: 0 ; Diagnosis Code: [id number] Triage Chief Complaint Description : ate a cookie that possible had nuts in it. ate one at 1500 then ante another at 2000. last reacton happened 40 years ago lep and throuth feel tingly Mode of Arrival ED : Private vehicle Track : Medical Languages : [place] Vital Signs Assessed : Yes Treatments Prior to Arrival : Home treatments Is Patient Female and [age] no hysterectomy : No ADDIS MONTOYA RN - 06/03/2015 21:01 CDT Vital Signs Temperature Core : 36.8 DegC(Converted to: 98.2 DegF) Peripheral Pulse Rate : 96 /min Respiratory Rate : 18 /min Systolic Blood Pressure : 159 mmHg (HI) Diastolic Blood Pressure : 70 mmHg NIBP Mean : 100 mmHg BP Location : Left upper extremity SpO2 : 98 % Oxygen Saturation Monitoring Frequency : Intermittent Oxygen Therapy : Room air THERESE ADDIS Howard RN - 06/03/2015 21:01 CDT Pain Assessment Pain Symptoms : No THERESE, ADDIS Howard RN - 06/03/2015 21:01 CDT ED Physician Notification Time ED Physician Notification Time : 06/03/2015 21:04 CDT ADDIS MONTOYA RN - 06/03/2015 21:01 CDT CAMI DCP GENERIC CODE Tracking Acuity : 3 -Urgent Tracking Group : [facility] ED THERESE, ADDIS Howard RN - 06/03/2015 21:01 CDT Allergy (As Of: 06/03/2015 21:05:06 CDT) Allergies (Active) Glutens Estimated Onset Date: Unspecified ; Created By: PATTI ALMENDAREZ LPN; Reaction Status: Active; Category: Drug ; Substance: Glutens ; Type: Allergy ; Updated By: PATTI ALMENDAREZ LPN; Reviewed Date: 06/03/2015 21:05 CDT miconazole topical Comments: Comment 1: MICONAZOLE NITRATE ; Created By: Contributor_system, [facility]; Reaction Status: Active ; Category: Drug ; Substance: miconazole topical ; Type: Unknown ;Updated By: Contributor_system [facility]; Reviewed Date: 06/03/2015 21:05 CDT Nuts Estimated Onset Date: Unspecified ; Created By: PATTI ALMENDAREZ LPN; Reaction Status: Active ; Category: Food ; Substance: Nuts ; Type: Allergy ; Updated By: PATTI ALMENDAREZ LPN; Reviewed Date: 06/03/2015 21:05 CDT Source: Original Document Id: [id number] CDT!28 documented in this encounter Miscellaneous Notes Miscellaneous - Addis Montoya R.N. - 06/03/2015 10:24 PM CDT Valuables/Belongings Valuables/Belongings Entered On: 06/03/2015 22:24 CDT Performed On: 06/03/2015 22:24 CDT by ADDIS MONTOYA RN Valuables/Belongings Home Medication Disposition : None brought in with patient ADDIS MONTOYA RN - 06/03/2015 22:24 CDT Source: Original Document Id: [id number] CDT!3 Miscellaneous - Conversion, Historical Provider Ser - 06/03/2015 10:13 PM CDT Coding Summary-Paper Based CODING DATE: 07/18/2015 FINAL [place] [facility] STATUS: * Discharged to Home or Self Care PAYOR: Medicare ADMIT DX: 782.0 Disturbance of Skin Sensation REASON FOR VISIT DX: 782.0 Disturbance of Skin Sensation FINAL DX: PRINCIPAL: 782.0 Disturbance of Skin Sensation SECONDARY: PROCEDURES DOCTOR NAME DATE NOTE: The code number assigned matches the documented diagnosis and / or procedure in the patient's chart. However, the narrative phrase printed from the coding software may appear abbreviated, or result in slightly different terminology. Coded By: KENIA SOMMER Date Saved: 07/18/2015 05:34 pm Source: Original Document Id: [id number] Miscellaneous - Addis Montoya, R.N. - 06/03/2015 8:54 PM CDT Facility Charge Ticket 2.0 11.0 DX Facility Charge Ticket 2.0 11.0 DX Entered On: 06/03/2015 22:24 CDT Performed On: 06/03/2015 20:54 CDT by ADDIS MONTOYA RN Facility Charge Ticket 2.0 11.0 DX ED Other Charges : Standard ED Encounter TVL Level Translated RTF : Allergic reaction - minor TVL:3 TVL Level for Facility Charge Ticket : Level 3 Arrival Mode Calc : 1 Mode of Arrival ED : Private vehicle [place] Mode of Arrival Interpreted : Standard [place] Process Management : None [place] Order Management : None 30 Minutes Critical Care : No Nursing Notes RTF : Triage Forms ED Triage Assessment,06/03/15 21:01,ADDIS MONTOYA RN Nursing Notes ED Primary Assessment,06/03/15 21:09,ADDIS MONTOYA COMPENSATION PROGRAMS MANAGER Pain Assessment,06/03/15 22:23,ADDIS MONTOYA RN [place] Nursing Assessment : Triage and 1-2 nursing assessments [facility] Disposition : Discharge Disposition RTF : discharge [place] Total Points with Diagnosis Control : 5 [place] Visit Level : 11165 Level 3 Treatments Prior to Arrival : Home treatments ADDIS MONTOYA RN - 06/03/2015 22:24 CDT Source: Original Document Id: [id number] CDT!18 documented in this encounter Plan of Treatment Not on filedocumented as of this encounter Visit Diagnoses Not on filedocumented in this encounter
--- OUTSIDE RECORDS SUMMARY | 2022-05-06 13:11 | XMS_ITS | Encounter Summary ---
:1935 Author Organization [facility] Address [address] [place] [address] Care Team Providers Name Role Phone Unavailable Primary Care Provider Unavailable Encounter Details Date Type Department Care Team Description 10/02/2014 Hospital Encounter HX [facility] Mary Varma, CYRIL, C.N.P., D. N.P. [address] [place] [address] (Wo rk) Social History Tobacco Use Types Packs/Day Years Used Date Smoking Tobacco: Never Assessed Sex Assigned at Date Recorded Not on file documented as of this encounter Last Filed Vital Signs Vital Sign Reading Time Taken Comments Blood Pressure 120/70 10/02/2014 12:20 PM FULL TIME Pulse 80 10/02/2014 12:20 PM FULL TIME Temperature - - Respiratory Rate 16 10/02/2014 12:20 PM FULL TIME Oxygen Saturation - - Inhaled Oxygen Concentration - - Weight 75.7 kg (166 lb 14.2 oz) 10/02/2014 12:20 PM FULL TIME Height - - Body Mass Index 30.02 02/28/2014 9:25 AM CDT documented in this [...] this encounter Progress Notes Mary Varma APRN, EsperanzaNDannP. - 10/02/2014 12:16 PM CST [id number] CHIEF COMPLAINT/REASON FOR VISIT Vertigo. HISTORY OF PRESENT ILLNESS Kathryn is a very pleasant 79-year-old female who has a known history of benign positional vertigo. Shehas been seen by Physical Therapy on a regular basis. Unfortunately, her symptoms seem to be progressing. Physical Therapy reports that she does seem to resolve from her symptoms but then it does seem to reoccur. Patient states that she does not feel that she really gets back to normal before she has another episode of the significant dizziness that causes her some significant nausea. She reports shehas had 6 significant episodes since the end of June, which is impeding on her life. She denies any particular nausea with it but has canceled many events due to the vertigo. She reports it is a true spinning where she feels so off balance but feels the room completely spins around her. She has nothad an MRI. She denies any hearing loss. She denies any particular headaches. She denies any nausea or vomiting or any recent infectious symptoms. Her did have the flu; she did not get it. MEDICATIONS Acetaminophen. Rochelle-D. Citracal. <__IM_1: BLANK__>. Iron. Flonase. Gabapentin. Ibuprofen as needed. Meclizine. Multivitamin. Omeprazole. Restasis. Vagifem. Vitamin B12. ALLERGIES Gluten. Miconazole topical. Nuts. SYSTEMS REVIEW As noted above. Patient denies any infectious symptoms. She denies any headache. She denies any chest pain. No changes in bowel or bladder habits. She denies any syncopal or presyncopal episodes. PAST MEDICAL/SURGICAL HISTORY Patient has a personal history of some: Significant arthritis. Cataract. Diverticulitis. Glaucoma. Hernia. Allergic rhinitis. Celiac sprue. Atrophic vaginitis. She has had surgical interventions such as: Cataract surgery. Colonoscopy. Laminectomy. Upper GI. SOCIAL HISTORY Patient is . Lives with her . She is a non tobacco, non alcohol user or drug user. VITAL SIGNS Blood pressure 120/70 with a pulse of 80. Weight is 75.2 kg. GENERAL: Patient appears nondistressed. HEENT: Unremarkable. Eyes: Pupils even, equal, react to light. Extraocular movements are normal. I do not notice any nystagmus upon exam. NECK: Carotids with normal upstrokes. There are no bruits noted. No jugular venous distention. HEART: With a regular rate and rhythm. LUNGS: Clear to auscultation. ABDOMEN: Soft. There is no organomegaly. EXTREMITIES: Without any edema. NEUROLOGIC: She does have a little bit of weakness on her left side compared to her right from postsurgical back pain in the past. She has a negative tip test. IMPRESSION/REPORT/PLAN Persistent vertigo. PLAN: I did review this case with Dr. Hodges, and we will obtain laboratory studies including a CBC, a complete metabolic panel, and a TSH. Will also order an MRI of the brain with contrast. Patient agrees with that plan, and I will review the results on her return visit. Ready to learn. No apparent learning barriers were identified. Learning preferences include listening. Explained diagnosis and treatment plan. Patient/Child/Caregiver expressed understanding of the content. Mary Varma, MarshallN.P./farhat Electronically Signed By: MARY VARMA RN, LINING STUFFER On: 10/07/2014 09:15 AM Source: [facility] [id number] Document Id: [id number] TIME documented in this encounter Nursing Notes Sujatha Batista L.P.N. - 10/02/2014 12:28 PM CST Orthostatics Orthostatics Entered On: 10/02/2014 12:32 FULL TIME Performed On: 10/02/2014 12:28 FULL TIME by SUJATHA BATISTA LPN Orthostatics Systolic Blood Pressure Supine : 126 mmHg Diastolic Blood Pressure Supine : 70 mmHg Pulse Supine : 72 /min Patient Response Supine : Light-headedness Systolic Blood Pressure Sitting : 112 mmHg Diastolic Blood Pressure Sitting : 68 mmHg Pulse Sitting : 72 /min Patient Response Sitting : Dizziness Systolic Blood Pressure Standing : 112 mmHg Diastolic Blood Pressure Standing : 68 mmHg Pulse Standing : 72 /min Patient Response Standing : Dizziness BP Location Orthostatics : Left upper extremity Blood Pressure Cuff Size Orthostatics : Regular SUJATHA BATISTA LPN - 10/02/2014 12:28 FULL TIME [facility] Document Id: [id number] FULL TIME!16 TIME documented in this encounter Miscellaneous Notes Miscellaneous - Mary Varma APRN, C.NDannP. - 10/05/2014 3:14 PM CST Results Notification From: MARY VARMA RN, LINING STUFFER Sent: 10/05/2014 15:14:54 FULL TIME Show up: 10/05/2014 15:14:00 FULL TIME Subject: Results Notification Pt called with results. Due to elevated Liver studies- More labs were ordered and ultrasound. Will be seeing pt to further explain and reveiw. She has been taking Tylenol and will have her hold that. Thanks, Results: Date Result Name Ind Value Ref Range 10/02/2014 13:08 Sodium Lvl 138.2 mM/L (135.0 - 145.0) 10/02/2014 13:08 Potassium Lvl 4.3 mmol/L (3.6 - 4.8) 10/02/2014 13:08 Chloride 102 mmol/L (98 - 107) 10/02/2014 13:08 CO2 (H) 29.1 mmol/L (23.0 - 29.0) 10/02/2014 13:08 AGAP 11 mmol/L (10 - 20) 10/02/2014 13:08 Glucose Lvl 72 mg/dL (70 - 139) 10/02/2014 13:08 Creatinine 0.88 mg/dL (0.60 - 1.30) 10/02/2014 13:08 EGFR (MDRD) >60 mL/min/1.73m2 (>=60 - ) 10/02/2014 13:08 EGFR (MDRD) >60 mL/min/1.73m2 (>=60 - ) 10/02/2014 13:08 BUN (H) 26 mg/dL (7 - 18) 10/02/2014 13:08 Calcium Lvl 10.1 mg/dL (8.8 - 10.2) 10/02/2014 13:08 AST (H) 52 unit/L (8 - 43) 10/02/2014 13:08 ALT (H) 93 unit/L (7 - 45) 10/02/2014 13:08 TSH 2.13 mIU/L (0.27 - 4.20) 10/02/2014 13:08 Hgb 13.4 g/dL (12.0 - 15.5) 10/02/2014 13:08 Hct 40.4 % (34.9 - 44.5) 10/02/2014 13:08 WBC 4.8 x10(9)/L (3.4 - 10.5) 10/02/2014 13:08 RBC 4.45 x10(12)/L (3.90 - 5.03) 10/02/2014 13:08 MCV 90.8 fL (82.0 - 98.0) 10/02/2014 13:08 RDW 12.5 % (11.9 - 15.5) 10/02/2014 13:08 Platelet 199 x10(9)/L (150 - 450) Source: [facility] POWERCHART Document Id: [id number] Miscellaneous - Mary Varma, ASSISTED LIVING NURSING DIRECTOR, C.N.P. - 10/02/2014 12:57 PM CST Ambulatory Patient Summary [address] [place], [place] [id number] Visit Information Name: KATHRYN LEON [facility] Number: [id number] Current Date: 10/02/2014 12:57:37 Physicians Attending Provider: MARY VARMA RN, LINING STUFFER Primary Care Provider: MARY VARMA RN, LINING STUFFER CAROLYN KATHRYN BANDA has been given the following list of [...] the Am two tablets in the Evening calcium citrate (Citracal) 1tab, two times a day cyanocobalamin (Vitamin B-12) 1,000 mcg, Oral, once a day cycloSPORINE ophthalmic (Restasis) one drop, Eyes(Both), every 12 hours dorzolamide-timolol ophthalmic (Cosopt ophthalmic solution) 1 Drops, once a day in the right eye only estradiol topical (Vagifem 10 mcg vaginal tablet) 10 mcg, Vaginal, 2 times a week Member No [id number] ferrous sulfate (ferrous sulfate 325 mg (65 mg elemental iron) oral tablet) 1 Tablet(s), Oral, once a day fexofenadine-pseudoephedrine (Rochelle-D 12 Hour 60 mg-120 mg oral tablet, extended release) 1 Tablet(s), Oral, two times a day [facility] [phone] fluticasone nasal (Flonase 0.05 mg/inh nasal spray) 2 [place](s), Nostrils(Both), once a day gabapentin (gabapentin 300 [...] a day Stop Taking the Following Medications: aspirin (aspirin 81 mg oral tablet) Medication list as of 10-02-14 12:57 Attention: If you have any medications at [...] emergency. Electronically Signed By: MARY VARMA RN, LINING STUFFER Signed On:02-OCT-2014 12:56:51 Your Allergies & Intolerances Substance Reaction Symptoms [...] 10/31/2013 Your Upcoming Appointments Date Time Location Provider No Appointments found Attention: Contact your local Clinic if further appointment detail needed. Your Goals/Additional instructions: Source: [facility] POWERCHART Document Id: [id number] TIME Miscellaneous - Mary Varma APRN, C.N.P. - 10/02/2014 12:57 PM CST Ambulatory Discharge Medication List [address] [id number] Visit Information Name: KATHRYN LEON [facility] Number: [id number] Visit Date: 10/02/2014 12:57:35 Attending Provider: MARY VARMA RN, LINING STUFFER Primary Care Provider: MARY VARMA RN, LINING STUFFER KATHRYN LEON has been given the following [...] the Am two tablets in the Evening calcium citrate (Citracal) 1tab, two times a day cyanocobalamin (Vitamin B-12) 1,000 mcg, Oral, once a day cycloSPORINE ophthalmic (Restasis) one drop, Eyes(Both), every 12 hours dorzolamide-timolol ophthalmic (Cosopt ophthalmic solution) 1 Drops, once a day in the right eye only estradiol topical (Vagifem 10 mcg vaginal tablet) 10 mcg, Vaginal, 2 times a week Member No [phone] ferrous sulfate (ferrous sulfate 325 mg (65 mg elemental iron) oral tablet) 1 Tablet(s), Oral, once a day fexofenadine-pseudoephedrine (Rochelle-D 12 Hour 60 mg-120 mg oral tablet, extended release) 1 Tablet(s), Oral, two times a day [facility]/[employer] [phone] fluticasone nasal (Flonase 0.05 mg/inh nasal spray) 2 [place](s), Nostrils(Both), once a day gabapentin (gabapentin 300 [...] a day Stop Taking the Following Medications: aspirin (aspirin 81 mg oral tablet) Medication list as of 10-02-14 12:57 Attention: If you have any medications at [...] emergency. Electronically Signed By: MARY VARMA RN, LINING STUFFER Signed On:02-OCT-2014 12:56:51 Additional Information: Source: [facility] POWERCHART Document Id: [id number] TIME Miscellaneous - Sujatha Batista L.P.NDann - 10/02/2014 12:27 PM CST Health Assessment Health Assessment Entered On: 10/02/2014 12:28 FULL TIME Performed On: 10/02/2014 12:27 FULL TIME by SUJATHA BATISTA LPN Health Assessment Complete Health Assessment Complete or Modified : Annual Health Assessment Annual Health Assessment Completed : Yes SUJATHA BATISTA LPN - 10/02/2014 12:27 FULL TIME Nutrition Nutrition Risk Factors by History Adult : None SUJATHA BATISTA LPN - 10/02/2014 12:27 FULL TIME Functional Current Daily Living Assistance : None SUJATHA BATISTA LPN - 10/02/2014 12:27 FULL TIME Dependent Habits Tobacco Use/Currently Using : No Exposure to Tobacco Smoke : Care provider denies smoking in home Smoking Status : Never smoker SUJATHA BATISTA LPN - 10/02/2014 12:27 FULL TIME Tobacco Use Grid Last Use : never SUJATHA BATISTA LPN - 10/02/2014 12:27 FULL TIME Caffeine Use Grid Caffeine Use : Current Type : Coffee Frequency : Weekly SUJATHA BATISTA LPN - 10/02/2014 12:27 FULL TIME Recreational Drug Use Grid Drug Use : None SUJATHA BATISTA LPN - 10/02/2014 12:27 FULL TIME Psychosocial Domestic Abuse Concerns : None Amish Preference : Unknown SUJATHA BATISTA LPN - 10/02/2014 12:27 FULL TIME Advance Directive Advanced Directives : No Advance Directive Additional Information : Yes SUJATHA BATISTA LPN - 10/02/2014 12:27 FULL TIME Educ Needs Learning Style Preference Adult Grid Patient : Printed materials Family : None SUJATHA BATISTA LPN - 10/02/2014 12:27 FULL TIME Source: [facility] POWERCHART Document Id: [id number] FULL TIME!33 TIME Miscellaneous - Sujatha Batista L.PDannNDann - 10/02/2014 12:20 PM CST Adult Public Policy Coordinator Intake/History Adult Public Policy Coordinator Intake/History Entered On: 10/02/2014 12:24 FULL TIME Performed On: 10/02/2014 12:20 FULL TIME by SUJATHA BATISTA LPN Intake Chief Complaint : Has been seeing Davina for Vertigo it has been getting worse Temperature Core : 36.2 DegC(Converted to: 97.2 DegF) (LOW) Peripheral Pulse Rate : 80 /min Respiratory Rate : 16 /min Heart Rhythm : Regular Systolic Blood Pressure : 120 mmHg Diastolic Blood Pressure : 70 mmHg NIBP Mean : 87 mmHg BP Location : Left upper extremity Blood Pressure Cuff Size : Regular Actual Weight : 75.7 kg(Converted to: 166 lb 14 oz) Weight Source : Standing scale Dosing Weight Clinic : 75.7 kg SUJATHA BATISTA LPN - 10/02/2014 12:20 FULL TIME General Info Information Given By : Patient Preferred Communication Mode : Verbal Languages : Libyan Is Patient Female and 13-50 no hysterectomy : No SUJATHA BATISTA LPN - 10/02/2014 12:20 FULL TIME Subjective Pain Symptoms : No SUJATHA BATISTA LPN - 10/02/2014 12:20 FULL TIME Dependent Habits Tobacco Use/Currently Using : No Exposure to Tobacco Smoke : Care provider denies smoking in home Smoking Status : Never smoker SUJATHA BATISTA LPN - 10/02/2014 12:20 FULL TIME Tobacco Use Grid Last Use : never SUJATHA BATISTA LPN - 10/02/2014 12:20 FULL TIME Caffeine Use Grid Caffeine Use : Current Type : Coffee Frequency : Weekly SUJATHA BATISTA ACCESS CLERK - 10/02/2014 12:20 FULL TIME Recreational Drug Use Grid Drug Use : None SUJATHA BATISTA ACCESS CLERK - 10/02/2014 12:20 FULL TIME ID Screen Drug Resistant Organism : No Travel Within Last 21 Days : No SUJATHA BATISTA LPN - 10/02/2014 12:20 FULL TIME Source: [facility] POWERCHART Document Id: [id number] FULL TIME!40 TIME documented in this encounter Plan of Treatment Not on filedocumented as of this encounter Procedures Procedure Name Priority Date/Time Associated Comments Diagnosis CBC WITHOUT Routine 10/02/2014 1:08 Results for this DIFFERENTIAL, B PM FULL TIME procedure ar e in the results section. ALANINE AMINOTRANSFERASE Routine 10/02/2014 1:08 Results for this (ALT), S/P PM FULL TIME procedure are i n the results section. ASPARTATE Routine 10/02/2014 1:08 Results for this AMINOTRANSFERASE (AST), PM FULL TIME proc edure are in S/P the results section. THYROID-STIMULATING Routine 10/02/2014 1:08 Resul ts for this HORMONE-SENSITIVE PM FULL TIME procedure are in (S-TSH) the results section. BASIC METABOLIC PANEL, Routine 10/02/2014 1:08 Re sults for this S/P PM FULL TIME procedure are i n the results section. documented in this encounter Results CBC without Differential (10/02/2014 1:08 PM FULL TIME) P athologist Signature Leukocytes 4.8 3.4 - 10.5 POWERCHART X109L Erythrocytes 4.45 3.90 - 5.03 POWERCHART [id number] Hemoglobin 13.4 12.0 - 15.5 POWERCHART GDL Hematocrit 40.4 34.9 - 44.5 POWERCHART MCV 90.8 82.0 - 98.0 POWERCHART FL HX RDW 12.5 11.9 - 15.5 POWERCHART Platelet Count 199 150 - 450 POWERCHART X109L Specimen (Source) Anatomical Collection Method Collection Time Re ceived Time Location / / Volume Laterality Blood 10/02/2014 1:08 PM FULL TIME Esperanza Schmidt APRNN.P., D.N.P. LAB BLOOD ADD-ON Performing Organization Address City/State/ZIP Code Phon e Number POWERCHART Thyroid-Stimulating Hormone-Sensitive (s-TSH) (10/02/2014 1:08 PM FULL TIME) P athologist Signature TSH 2.13 0.27 - 4.20 POWERCHART (Thyrotropin) MIUL Specimen (Source) Anatomical Collection Method Collection Time Re ceived Time Location / / Volume Laterality Blood 10/02/2014 1:08 PM FULL TIME Angy Schmidt APRN.N.P., D.N.P. LAB BLOOD ADD-ON Performing Organization Address City/State/ZIP Code Phon e Number POWERCHART (ABNORMAL) BMP (Basic Metabolic Panel) (10/02/2014 1:08 PM FULL TIME) Analysis Performed At Patho logist Time Signature Anion Gap 11 10 - 20 POWERCHART MMOLL BUN (Blood Urea 26 (H) 7 - 18 POWERCHART Nitrogen), S MGDL Chloride, S 102 98 - 107 POWERCHART [facility] CO2 Total 29.1 (H) 23.0 - POWERCHART 29.0 MMO[facility] Creatinine 0.88 0.60 - POWERCHART 1.30 MGDL Glucose 72 70 - 139 POWERCHART MGDL Calcium, Total, 10.1 8.8 - 10.2 POWERCHART S MGDL Sodium, S 138.2 135.0 - POWERCHART 145.0 MML Potassium, S 4.3 3.6 - 4.8 POWERCHART MMOLL HXeGFR (MDRD) >60 >=60 POWERCHART [id number] eGFR >60 >=60 POWERCHART Black/ [id number] Cymro Specimen (Source) Anatomical Collection Method Collection Time Re ceived Time Location / / Volume Laterality Blood 10/02/2014 1:08 PM FULL TIME Angy Schmidt APRN.N.P., D.N.P. LAB BLOOD ADD-ON Performing Organization Address City/State/ZIP Code Phon e Number POWERCHART (ABNORMAL) AST (Aspartate Aminotransferase) (10/02/2014 1:08 PM FULL TIME) Patholo gist Method Time Signature Aspartate 52 (H) 8 - 43 POWERCHART Aminotransferase UNITL (AST), S Specimen (Source) Anatomical Collection Method Collection Time Re ceived Time Location / / Volume Laterality Blood 10/02/2014 1:08 PM FULL TIME Mary Varma APRN C.N.P., D.N.P. LAB BLOOD ADD-ON Performing Organization Address City/State/ZIP Code Phon e Number POWERCHART (ABNORMAL) ALT (Alanine Aminotransferase) (10/02/2014 1:08 PM FULL TIME) P athologist Signature Alanine 93 (H) 7 - 45 POWERCHART Amniotransferas UNITL e, LD Specimen (Source) Anatomical Collection Method Collection Time Re ceived Time Location / / Volume Laterality Blood 10/02/2014 1:08 PM FULL TIME Mary Varma APRN, Angy.N.P., D.N.P. LAB BLOOD ADD-ON Performing Organization Address City/State/ZIP Code Phon e Number POWERCHART documented in this encounter Visit Diagnoses Not on filedocumented in this encounter
--- OUTSIDE RECORDS SUMMARY | 2022-05-06 13:11 | XMS_ITS | Encounter Summary ---
:1935 Author Organization [facility] Address [address] [place] [address] Care Team Providers Name Role Phone Unavailable Primary Care Provider Unavailable Encounter Details Date Type Department Care Team Description 11/22/2013 - Hospital Encounter HX [facility] DiegoMary pineda, 03/05/2014 SRV CYRIL, C.N.P., D.N.P. [address] [place] [address] Social History Tobacco Use Types Packs/Day Years Used Date Smoking Tobacco: Never Assessed Sex Assigned at Date Recorded Not on file documented as of this encounter Discharge Summaries Tamar Aceves P.T. - 02/27/2014 12:00 AM CDT [id number] PT DISCHARGE SUMMARY REFERRAL SOURCE/ORDER Patient was referred to physical therapy for complaint of vertigo. IMPRESSION/REPORT/PLAN She was seen for 2 physical therapy visits on 11/22/2013 and 11/23/2013. Just after that visit, the patient was leaving for an extended trip. She did seem to feel significantly better the second time. Therefore, we feel fairly confident that we were able to help her with this BPPV. At this time, we havenot heard from patient. If she has questions or concerns, she can contact therapist. Otherwise we will discharge patient. Tamar Aceves D.P.T./farhat Electronically Signed By: TAMAR ACEVES DPT On: 03/15/2014 10:13 AM Source: [facility] MHSDOLBEYNONRADSYS Document Id: [id number] documented in this encounter Medications at Time [...] as of this encounter Progress Notes Faviola Villalobos P.Marleni - 11/23/2013 12:00 AM CDT [id number] CHIEF COMPLAINT/REASON FOR VISIT Residual dizziness. She is significantly better than she was yesterday. However, she is leaving [facility]. Therefore, we will reassess today. IMPRESSION/REPORT/PLAN Hallpike-Jimmy test was positive for a left posterior canal nystagmus, latency of 5 seconds duration of 5 seconds. We did perform TRANSPORTATION AGENT maneuvers for the left posterior canal, performed two times. First time patient was symptomatic, second time patient was asymptomatic. Patient tolerated it well. Total treatment time today was 20 minutes. Plan is to continue as needed for symptom resolution. Faviola Villalobos D.P.T./joby Electronically Signed By: FAVIOLA VILLALOBOS On: 11/28/2013 04:15 PM Source: [facility] MHSDOLBEYNONRADSYS Document Id: [id number] documented in this encounter Consult Notes Tamar Aceves P.T. - 11/22/2013 12:00 AM CDT [id number] FUNCTIONAL SCORING Current functional category: Changing and Maintaining body position. Current: CL At least 60% impaired, but less than 80% impaired. Projected goal status: CI at least 1% but less than 20% impaired, limited or restricted. HISTORY OF CURRENT CONDITION Patient is reporting to physical therapy today reporting this morning she woke up and had a significant bout of her vertigo symptoms. Patient was treated with vertigo last fall. This was in May and June of last year. She is reporting over the last couple days she just felt a little foggy, shehad taken [id number] meclizine or Dramamine, this helped a little bit but this morning she woke up and took a shower but then after that it just hit her. She got sweaty and felt a spinning sensation coming on. She is denying double vision. At this time she does have very blurry vision, no complaint of headache, some tightness in her neck but she is visibly not wanting to turn her head. She did have a dull headache over the last few days. No report of a virus, recently. Faviola Villalobos has done a thorough evaluation of her in the past and at that time, patient has no medical history of Menieres disease, sudden hearing loss, pressure or fullness in the ears, discharge from the ears or nose, Chiari malformation or severe degenerative disc disease of the cervical spine. Patient did have a fallprior to the last bout of vertigo that she sustained a left rib fracture as well as left hip contusion. Patient is reporting that since that episode in the fall did clear up she has not had any problems with vertigo. PAST MEDICAL HISTORY Please see medical record for prior past medical history. PHYSICAL EXAMINATION Patient did complete verbal assessment as she was unable to complete written forms today. She was very symptomatic not even turning her head towards therapist when she walked in the door. She has had previous episodes of positional vertigo. She did need contact guard with assistance of her to walk in to therapy today. He did drive her in. She was unable to drive and there has difficulty with ambulation. Unable to assess cervical ROM due to increase in dizziness symptoms. We did perform the Hallpike-Dixtest which was positive for symptom reproduction and nystagmus for her left posterior canal. We alsoperformed assessment of right posterior and this was symptomatic but did not have the nystagmus. INTERVENTIONS Today we did perform the canalith repositioning maneuver times two for patient, she was less symptomatic the second time, did need assistance times two to sit up after this maneuver. Patient did have improved response after this. PATIENT'S GOAL 1. Patient will report full symptom resolution in 4 weeks. 2. Patient will be able to ambulate safely and independently without assistance from her in 2 weeks. 3. Patient again will reach the CI modifier in 2 weeks time which means that she is at least 1% but less than 20% impaired, limited, or restricted. Patient does feel comfortable with this. PLAN Plan of care is patient education in home program if needed for Cierra. She had been doing these previously. She tried them this morning but was too symptomatic and just did re-canalith positioning maneuver. The plan will be to see her up to 6 sessions as needed the next month for a resolution of symptoms. Tamar Aceves D.P.T./tommy cc: Anisha Villa M.D. Electronically Signed By: TAMAR ACEVES DPRadha On: 11/22/2013 03:54 PM Modified by and Electronically Signed by: TAMAR ACEVES DPT On: 11/22/2013 03:54 PM Co-Signed By: ANISHA GARCIA MD On: 11/24/2013 09:45 PM Source: [facility] MHSDOLBEYNONRADSYS Document Id: [id number] documented in this encounter Plan of Treatment Not on filedocumented as of this encounter Visit Diagnoses Not on filedocumented in this encounter
--- OUTSIDE RECORDS SUMMARY | 2022-05-06 13:12 | XMS_ITS | Encounter Summary ---
:1935 Author Organization [facility] Address [address] [place] [id number] Care Team Providers Name Role Phone Unavailable Primary Care Provider Unavailable Encounter Details Date Type Department Care Team Description 11/01/2013 Hospital Encounter HX [facility] Mary Aquino, CYRIL, C.N.P., D.N.P. [address] [place], [place] [phone] (Wo rk) Social History Tobacco Use Types Packs/Day Years Used Date Smoking Tobacco: Never Assessed Sex Assigned at Date Recorded Not on file documented as of this encounter Medications at Time of Discharge Medication Sig Dispensed Refills Start Date End Date CYANOCOBALAMIN, VITAMIN Take 1,000 mcg by 0 10/25 B-12, ORAL mouth daily. MULTIVITAMIN ORAL Take 1 tablet [...]
--- OUTSIDE RECORDS SUMMARY | 2022-05-06 13:12 | XMS_ITS | Encounter Summary ---
:1935 Author Organization [facility] Address [address] [place] [address] Care Team Providers Name Role Phone Unavailable Primary Care Provider Unavailable Encounter Details Date Type Department Care Team Description 09/05/2013 Hospital Encounter HX [facility] Mary Varma, CYRIL, C.N.P., D. N.P. [address] [place] [address] (Wo rk) Social History Tobacco Use Types Packs/Day Years Used Date Smoking Tobacco: Never Assessed Sex Assigned at Date Recorded Not on file documented as of this encounter Last Filed Vital Signs Vital Sign Reading Time Taken Comments Blood Pressure 126/70 09/05/2013 8:04 AM FORGE HEATER Pulse 74 09/05/2013 8:04 AM FORGE HEATER Temperature - - Respiratory Rate 16 09/05/2013 8:04 AM FORGE HEATER Oxygen Saturation - - Inhaled Oxygen Concentration - - Weight 75.6 kg (166 lb 10.7 oz) 09/05/2013 8:04 AM FORGE HEATER Height - - Body Mass Index 29.94 08/25/2013 1:55 PM FORGE HEATER documented in this encounter Medications at Time [...] Progress Notes Mary Varma APRN, C.N.P. - 09/05/2013 7:59 AM CST [id number] CHIEF COMPLAINT/REASON FOR VISIT Chest wall pain. HISTORY OF PRESENT ILLNESS Kathryn is a pleasant 78-year-old female who comes in today with significant 8 out of 10 left chest area pain and abdominal discomfort. Kathryn has had this in the past. She states that it was back in she fell. She was diagnosed with fractured ribs and was actually hospitalized due to the significant pain. She has not had any new injuries but has started having this intense discomfort that is much worse when she lays down at night. She denies any weight loss. Denies any night sweats. Denies any shortness of breath, but states that she just feels miserable. She has been taking ibuprofen and tramadol for the pain which really has not improved it much at all. MEDICATIONS Please see the EMR for details. ALLERGIES Glutens. Nuts. PAST MEDICAL/SURGICAL HISTORY Please see the EMR. SOCIAL HISTORY She is a non-tobacco user. PHYSICAL EXAMINATION VITAL SIGNS: Her blood pressure is 126/70 with a pulse of 74. GENERAL: Patient appears nondistressed. However, she does appear uncomfortable. Her left eyelid is slightly swollen. Pupils even, equal, react to light. HEART: With a regular rate and rhythm. Normal S1, S2. LUNGS: Her lungs are clear to auscultation with good respiratory effort. Patient has significant pain on her lower rib cage on the left side. No significant mid epigastric pain, but she does have left upper abdominal quadrant discomfort also. LYMPH: With no lymphadenopathy; cervical, supraclavicular or axillary lymphadenopathy. ABDOMEN: With normoactive bowel sounds. Tenderness in the left upper quadrant. No other abnormalities or organomegaly is appreciated. IMPRESSION/REPORT/PLAN 1. Left chest wall pain. 2. Left upper abdominal pain. I am going to order some laboratory studies including a CBC, a CRP, a CMP and a lipase. I would liketo also obtain a CT scan of both her chest and her abdomen. I will call her with those results. We will treat accordingly. PATIENT EDUCATION: Ready to learn No apparent learning barriers were identified Learning preferences include listening Explained diagnosis and treatment plan Patient/Child/Caregiver expressed understanding of the content Aakash Quiroga/joby Electronically Signed By: MARY VARMA RN, PREVENTIVE MEDICINE PHYSICIAN On: 09/19/2013 03:46 PM Source: [facility] [id number] Document Id: [id number] E HEATER documented in this encounter Miscellaneous Notes Miscellaneous - Mary Varma APRN C.N.P. - 09/05/2013 3:35 PM CST Normal Results Letter 05 September 2013 KATHRYN LEON [address] 14 [facility] [phone] Dear KATHRYN LEON, Here is a report of your results from test we discussed on the phone. They are satisfactory. Please follow up with us as we discussed during your visit or sooner if you have any concerns. Continue to treat the pain and report if any new or worsening symptoms. If you have questions or concerns, please do not hesitate to call our office. Elyse Almonte to you and your family. Result Name Current Result Previous Result Normal Range Sodium Lvl (mM/L) 136.5 09/05/2013 136.0 06/07/2013 (L) 132.2 05/23/2013 (L) 128.8 05/15/2013 135.0 - 145.0 Potassium Lvl (mmol/L) 4.1 09/05/2013 4.4 05/23/2013 3.9 05/15/2013 3.6 - 4.8 Chloride (mmol/L) 98 09/05/2013 (L) 95 05/23/2013 (L) 97 05/15/2013 98 - 107 CO2 (mmol/L) 28.9 09/05/2013 (H) 29.8 05/23/2013 (L) 22.5 05/15/2013 23.0 - 29.0 AGAP (mmol/L) 14 09/05/2013 (L) 7 05/23/2013 (L) 9 05/15/2013 10 - 20 Alkaline Phosphatase (U/L) 66 09/05/2013 55 - 142 Glucose Fasting (mg/dL) 92 09/05/2013 70 - 99 Creatinine (mg/dL) 0.96 09/05/2013 0.96 05/23/2013 0.91 05/15/2013 0.60 - 1.30 EGFR (MDRD) (mL/min/1.73m2) (L) 56 09/05/2013 (L) 57 05/23/2013 60 05/15/2013 >=60 - EGFR (MDRD) (mL/min/1.73m2) >60 09/05/2013 >60 05/23/2013 >60 05/15/2013 >=60 - BUN (mg/dL) 15 09/05/2013 (H) 19 05/23/2013 (H) 19 05/15/2013 7 - 18 Calcium Lvl (mg/dL) 9.1 09/05/2013 9.4 05/23/2013 8.9 05/15/2013 8.8 - 10.2 Protein Total (g/dL) 6.7 09/05/2013 6.3 - 7.9 Albumin Lvl (g/dL) 3.9 09/05/2013 3.5 - 5.0 AST (U/L) (H) 33 09/05/2013 12 - 31 ALT (U/L) (H) 49 3 15 - 37 Bili Total (mg/dL) 0.3 09/05/2013 0.1 - 1.0 Lipase Lvl (U/L) 17.8 09/05/2013 10.0 - 73.0 CRP (mg/dL) 0.4 09/05/2013 0.0 - 0.8 Hgb (g/dL) 12.3 09/05/2013 (L) 11.6 06/07/2013 (L) 11.7 05/23/2013 12.6 05/15/2013 12.0 - 15.5 Hct (%) 38.0 09/05/2013 (L) 34.8 05/23/2013 37.6 05/15/2013 34.9 - 44.5 WBC (x10(9)/L) 3.8 09/05/2013 5.0 05/23/2013 5.3 05/15/2013 3.4 - 10.5 RBC (x10(12)/L) 4.21 09/05/2013 (L) 3.84 05/23/2013 4.12 05/15/2013 3.90 - 5.03 MCV (fL) 90.3 09/05/2013 90.6 05/23/2013 91.3 05/15/2013 82.0 - 98.0 RDW (%) 12.5 09/05/2013 11.9 05/23/2013 12.2 05/15/2013 11.9 - 15.5 Platelet (x10(9)/L) 187 09/05/2013 246 05/23/2013 (L) 90 05/15/2013 150 - 450 Neutro % (%) 48.7 09/05/2013 44.9 05/15/2013 42.0 - 77.0 Lymph % (%) 32.4 09/05/2013 37.6 05/15/2013 23.0 - 44.0 Montmore[place] % (%) 13.4 09/05/2013 12.0 05/15/2013 2.0 - 18.0 Eos % (%) 5.0 09/05/2013 (H) 5.1 05/15/2013 1.0 - 5.0 Baso % (%) 0.5 09/05/2013 0.4 05/15/2013 0.0 - 1.0 Neutro Absolute (10(9)/L) 1.85 09/05/2013 2.39 05/15/2013 1.70 - 7.00 Lymph Absolute (x10(9)/L) 1.23 09/05/2013 2.00 05/15/2013 0.90 - 2.90 [place] Absolute (x10(9)/L) 0.51 09/05/2013 0.64 05/15/2013 0.30 - 0.90 Eos Absolute (x10(9)/L) 0.19 09/05/2013 0.27 05/15/2013 0.05 - 0.50 Baso Absolute (x10(9)/L) 0.02 09/05/2013 0.02 05/15/2013 0.00 - 0.30 Differential? Auto 09/05/2013 Auto 05/15/2013 Sincerely, MARY VARMA [address] [place] [id number] Electronic Signature Electronically Signed By: MARY VARMA RN, PREVENTIVE MEDICINE PHYSICIAN On: 05 September 2013 This document has images extracted. Source: [facility] POWERCHART Document Id: [id number] Electronically signed by Conversion, [facility] Credit Operations Specialist [id number] at 02/12/2017 12:27 AM CDT Miscellaneous - Mary Varma APRN, C.N.P. - 09/05/2013 8:54 AM CST Ambulatory Patient Summary [address] [address] Visit Information Name: KATHRYN LEONARCHANA [facility] Number: [phone] Current Date: 09/05/2013 08:54:20 Physicians Attending Provider: MARY VARMA RN, PREVENTIVE MEDICINE PHYSICIAN Primary Care Provider: MARY VARMA RN, IVANA KATHRYN LEON has been given the following [...] Changes/Routing acetaminophen (acetaminophen 325 mg oral tablet) 2 Tablet(s), Oral, three times a day as needed for Pain aspirin (aspirin 81 mg oral tablet) 1 Tablet(s), Oral, every other day calcium citrate (Citracal) once a day cyanocobalamin (Vitamin B-12) 1,000 mcg, Oral, once a day cycloSPORINE ophthalmic (Restasis) one drop, Eyes(Both), every 12 hours dorzolamide-timolol ophthalmic (Cosopt ophthalmic solution) 1 Drops, once a day estradiol topical (Vagifem 10 mcg vaginal tablet) 10 mcg, Vaginal, 2 times a week fexofenadine-pseudoephedrine (Rochelle-D 12 Hour 60 mg-120 mg oral tablet, extended release) 1 Tablet(s), Oral, two times a day fluticasone nasal (Flonase 0.05 mg/inh nasal spray) 2 Bridgeton(s), Nostrils(Both), once a day gabapentin (gabapentin 300 mg oral capsule) 1 cap, Oral, three times a day ibuprofen (ibuprofen 600 mg oral tablet) See Instructions, as needed for Pain 1 tab(s) PO three times per day with food as needed multivitamin (Multiple Vitamins oral tablet) 1 Tablet(s), Oral, once a day omeprazole (omeprazole 40 mg oral delayed release capsule) 1 cap, Oral, once a day traMADol (traMADol 50 mg oral tablet) 2 Tablet(s), Oral, every 6 hours as needed for Pain may take 1-2 tabs every 4-6hrs Stop Taking the Following Medications: Medication list as of 09-05-13 08:54 Attention: If you have any medications at home that are not on this list, DO NOT take them until youcontact your provider for clarification. Give a copy of your medication list to your primary care provider. Update your medication list any time medications or doses are changed and carry your medication list at all times in case of emergency. Your Allergies & Intolerances Substance Reaction Symptoms Category Comments Glutens Drug Nuts Food Your Problem List [...] left side Chest wall pain* Active 09/05/2013 Your Upcoming Appointments Date Time Location Reason Provider No Appointments found Attention: Contact your local Clinic if further appointment detail needed. Your Goals/Additional instructions: Source: [facility] POWERCHART Document Id: [id number] E HEATER Miscellaneous - Mary Varma APRN, C.N.P. - 09/05/2013 8:54 AM CST Ambulatory Depart Summary [address] [address] Visit Information Name: KATHRYN LEON [facility] Number: [phone] Visit Date: 09/05/2013 08:54:16 Attending Provider: MARY VARMA RN, PREVENTIVE MEDICINE PHYSICIAN Primary Care Provider: MARY VARMA RN, PREVENTIVE MEDICINE PHYSICIAN KATHRYN LEON has been given the following [...] Changes/Routing acetaminophen (acetaminophen 325 mg oral tablet) 2 Tablet(s), Oral, three times a day as needed for Pain aspirin (aspirin 81 mg oral tablet) 1 Tablet(s), Oral, every other day calcium citrate (Citracal) once a day cyanocobalamin (Vitamin B-12) 1,000 mcg, Oral, once a day cycloSPORINE ophthalmic (Restasis) one drop, Eyes(Both), every 12 hours dorzolamide-timolol ophthalmic (Cosopt ophthalmic solution) 1 Drops, once a day estradiol topical (Vagifem 10 mcg vaginal tablet) 10 mcg, Vaginal, 2 times a week fexofenadine-pseudoephedrine (Rochelle-D 12 Hour 60 mg-120 mg oral tablet, extended release) 1 Tablet(s), Oral, two times a day fluticasone nasal (Flonase 0.05 mg/inh nasal spray) 2 Bridgeton(s), Nostrils(Both), once a day gabapentin (gabapentin 300 mg oral capsule) 1 cap, Oral, three times a day ibuprofen (ibuprofen 600 mg oral tablet) See Instructions, as needed for Pain 1 tab(s) PO three times per day with food as needed multivitamin (Multiple Vitamins oral tablet) 1 Tablet(s), Oral, once a day omeprazole (omeprazole 40 mg oral delayed release capsule) 1 cap, Oral, once a day traMADol (traMADol 50 mg oral tablet) 2 Tablet(s), Oral, every 6 hours as needed for Pain may take 1-2 tabs every 4-6hrs Stop Taking the Following Medications: Medication list as of 09-05-13 08:54 Attention: If you have any medications at home that are not on this list, DO NOT take them until youcontact your provider for clarification. Give a copy of your medication list to your primary care provider. Update your medication list any time medications or doses are changed and carry your medication list at all times in case of emergency. Additional Information: Source: [facility] POWERCHART Document Id: [id number] E HEATER Miscellaneous - Sujatha Batista L.P.N. - 09/05/2013 8:09 AM CST Health Assessment Health Assessment Entered On: 09/05/2013 8:09 FORGE HEATER Performed On: 09/05/2013 8:09 FORGE HEATER by SUJATHA BATISTA LPN Health Assessment Complete Health Assessment Complete or Modified : Annual Health Assessment Annual Health Assessment Completed : Yes SUJATHA BATISTA LPN - 09/05/2013 8:09 FORGE HEATER Nutrition Nutrition Risk Factors by History Adult : None SUJATHA BATISTA LPN - 09/05/2013 8:09 FORGE HEATER Functional Current Daily Living Assistance : None SUJATHA BATISTA LPN - 09/05/2013 8:09 FORGE HEATER Dependent Habits Tobacco Use/Currently Using : No Exposure to Tobacco Smoke : Care provider denies smoking in home Smoking Status : Never smoker SUJATHA BATISTA LPN - 09/05/2013 8:09 FORGE HEATER Tobacco Use Grid Last Use : never SUJATHA BATISTA LPN - 09/05/2013 8:09 FORGE HEATER Caffeine Use Grid Caffeine Use : Current Type : Coffee Frequency : Weekly SUJATHA BATISTA LPN - 09/05/2013 8:09 FORGE HEATER Recreational Drug Use Grid Drug Use : None SUJATHA BATISTA LPN - 09/05/2013 8:09 FORGE HEATER Psychosocial Domestic Abuse Concerns : None SUJATHA BATISTA LPN - 09/05/2013 8:09 FORGE HEATER Advance Directive Advanced Directives : No Advance Directive Additional Information : Yes SUJATHA BATISTA LPN - 09/05/2013 8:09 FORGE HEATER Educ Needs Learning Style Preference Adult Grid Patient : Demonstration Family : None SUJATHA BATISTA LPN - 09/05/2013 8:09 FORGE HEATER Source: [facility] POWERCHART Document Id: [id number] FORGE HEATER!32 E HEATER Miscellaneous - Sujatha Batista LDannP.NDann - 09/05/2013 8:04 AM CST 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 Intake/History Entered On: 09/05/2013 8:08 FORGE HEATER Performed On: 09/05/2013 8:04 FORGE HEATER by SUJATHA BATISTA LPN Intake Chief Complaint : Left rib pain fall in end of april Temperature Core : 36 DegC(Converted to: 96.8 DegF) (LOW) Peripheral Pulse Rate : 74 /min Respiratory Rate : 16 /min Heart Rhythm : Regular Systolic Blood Pressure : 126 mmHg Diastolic Blood Pressure : 70 mmHg NIBP Mean : 89 mmHg BP Location : Right upper extremity Blood Pressure Cuff Size : Regular Actual Weight : 75.6 kg(Converted to: 166 lb 11 oz) Weight Source : Standing scale Dosing Weight Clinic : 75.6 kg SUJATHA BATISTA LPN - 09/05/2013 8:04 FORGE HEATER General Info Information Given By : Patient Preferred Communication Mode : Verbal Languages : Togolese SUJATHA BATISTA LPN - 09/05/2013 8:04 FORGE HEATER Subjective Pain Symptoms : Yes SUJATHA BATISTA LPN - 09/05/2013 8:04 FORGE HEATER Pain Pain Assessment Grid Pain 1 Location : Other: Rib cage Laterality : Left Intensity : 8 SUJATHA BATISTA LPN - 09/05/2013 8:04 FORGE HEATER Dependent Habits Tobacco Use/Currently Using : No Exposure to Tobacco Smoke : Care provider denies smoking in home Smoking Status : Never smoker ISABELA SUJATHA Galicia [facility] - 09/05/2013 8:04 FORGE HEATER Tobacco Use Grid Last Use : never ISABELA SUJATHA R [facility] - 09/05/2013 8:04 FORGE HEATER Caffeine Use Grid Caffeine Use : Current Type : Coffee Frequency : Weekly SUJATHA BATISTA [facility] - 09/05/2013 8:04 FORGE HEATER Recreational Drug Use Grid Drug Use : None BATISTA SUJATHA Galicia [facility] - 09/05/2013 8:04 FORGE HEATER Source: [facility] POWERCHART Document Id: [id number] FORGE HEATER!42 E HEATER documented in this encounter Plan of Treatment Not on filedocumented as of this encounter Procedures Procedure Name Priority Date/Time Associated Comments Diagnosis AUTOMATED Routine 09/05/2013 9:00 AM Results f or this DIFFERENTIAL, B FORGE HEATER procedure ar e in the results section. CBC WITH DIFFERENTIAL, Routine 09/05/2013 9:00 AM Results for this B FORGE HEATER procedure are i n the results section. C-REACTIVE PROTEIN Routine 09/05/2013 9:00 AM Res ults for this (CRP), S/P FORGE HEATER procedure are i n the results section. LIPASE, S/P Routine 09/05/2013 9:00 AM Results f or this FORGE HEATER procedure are i n the results section. COMPREHENSIVE Routine 09/05/2013 9:00 AM Results for this METABOLIC PANEL, S/P FORGE HEATER procedu re are in the results section. documented in this encounter Results Automated Differential (09/05/2013 9:00 AM FORGE HEATER) P athologist Signature Neutro % 48.7 42.0 - POWERCHART 77.0 Lymphocytes % 32.4 23.0 - POWERCHART 44.0 HX Montmorency % 13.4 2.0 - 18.0 POWERCHART HX Eos % 5.0 1.0 - 5.0 POWERCHART HX Baso % 0.5 0.0 - 1.0 POWERCHART Absolute 1.85 1.70 - POWERCHART Neutrophils 7.00 109L Lymphocytes 1.23 0.90 - POWERCHART 2.90 X109L Monocytes 0.51 0.30 - POWERCHART 0.90 X109L Eosinophils 0.19 0.05 - POWERCHART 0.50 X109L Absolute 0.02 0.00 - POWERCHART Basophil 0.30 X109L Specimen Anatomical Collection Method Collection Time Receive d Time (Source) Location / / Volume Laterality Blood 09/05/2013 9:00 AM 3 9:00 FORGE HEATER AM FORGE HEATER Mary Varma APRN C.N.P., D.N.P. LAB BLOOD ADD-ON Performing Organization Address City/State/ZIP Code Phon e Number POWERCHART CBC with Differential (09/05/2013 9:00 AM FORGE HEATER) athologist Signature Leukocytes 3.8 3.4 - 10.5 POWERCHART X109L Erythrocytes 4.21 3.90 - POWERCHART 5.03 [id number] Hemoglobin 12.3 12.0 - POWERCHART 15.5 GDL Hematocrit 38.0 34.9 - POWERCHART 44.5 MCV 90.3 82.0 - POWERCHART 98.0 FL HX RDW 12.5 11.9 - POWERCHART 15.5 Platelet Count 187 150 - 450 POWERCHART X109L HXDifferential? Auto POWERCHART Specimen (Source) Anatomical Collection Method Collection Time Re ceived Time Location / / Volume Laterality Blood 09/05/2013 9:00 AM FORGE HEATER Mary Varma APRN C.N.P., D.N.P. LAB BLOOD ADD-ON Performing Organization Address City/[facility]/ZIP Code Phon e Number POWERCHART CRP (C-Reactive Protein) (09/05/2013 9:00 AM FORGE HEATER) athologist Signature C-Reactive 0.4 0.0 - 0.8 POWERCHART Protein (CRP), MGDL S Specimen (Source) Anatomical Collection Method Collection Time Re ceived Time Location / / Volume Laterality Blood 09/05/2013 9:00 AM FORGE HEATER Mary Varma APRN C.N.P., D.N.P. LAB BLOOD ADD-ON Performing Organization Address City/State/ZIP Code Phon e Number POWERCHART Lipase (09/05/2013 9:00 AM FORGE HEATER) P athologist Signature Lipase, S 17.8 10.0 - 73.0 POWERCHART UL Specimen (Source) Anatomical Collection Method Collection Time Re ceived Time Location / / Volume Laterality Blood 09/05/2013 9:00 AM FORGE HEATER Mary Varma APRN, C.N.P., D.N.P. LAB BLOOD ADD-ON Performing Organization Address City/State/ZIP Code Phon e Number POWERCHART (ABNORMAL) CMP (Comprehensive Metabolic Panel) (09/05/2013 9:00 AM FORGE HEATER) Patholo gist Method Time Signature Anion Gap 14 10 - 20 POWERCHART MMOLL Alkaline 66 55 - 142 POWERCHART Phosphatase, S UL Alanine 49 (H) 15 - 37 POWERCHART Amniotransferase, LD UL Aspartate 33 (H) 12 - 31 POWERCHART Aminotransferase UL (AST), S Bilirubin, Total, S 0.3 0.1 - 1.0 POWERCHART MGDL BUN (Blood Urea 15 7 - 18 POWERCHART Nitrogen), S MGDL Chloride, S 98 98 - 107 POWERCHART MMOLL CO2 Total 28.9 23.0 - POWERCHART 29.0 MMOLL Creatinine 0.96 0.60 - POWERCHART 1.30 MGDL Glucose, Fasting, S 92 70 - 99 POWERCHART MGDL Total Protein, S 6.7 6.3 - 7.9 POWERCHART GDL Calcium, Total, S 9.1 8.8 - POWERCHART 10.2 MGDL Sodium, S 136.5 135.0 - POWERCHART 145.0 MML Potassium, S 4.1 3.6 - 4.8 POWERCHART MMOLL Albumin, S 3.9 3.5 - 5.0 POWERCHART GDL HXeGFR (MDRD) 56 (L) >=60 POWERCHART [id number] 2 eGFR Black/ >60 >=60 POWERCHART Botswanan [id number] Specimen (Source) Anatomical Collection Method Collection Time Re ceived Time Location / / Volume Laterality Blood 09/05/2013 9:00 AM FORGE HEATER Mary Varma APRN, C.N.P., D.N.P. LAB BLOOD ADD-ON Performing Organization Address City/State/ZIP Code Phon e Number POWERCHART documented in this encounter Visit Diagnoses Not on filedocumented in this encounter
--- OUTSIDE RECORDS SUMMARY | 2022-05-06 13:12 | XMS_ITS | Encounter Summary ---
:1935 Author Organization [facility] Address [address] [place] [id number] Care Team Providers Name Role Phone Unavailable Primary Care Provider Unavailable Encounter Details Date Type Department Care Team Description 04/23/2013 Hospital Encounter HX [facility] [place] Varma, CYRIL, C.N.P., D. N.P. [address] [place] [address] (Wo rk) Social History Tobacco Use Types Packs/Day Years Used Date Smoking Tobacco: Never Assessed Sex Assigned at Date Recorded Not on file documented as of this encounter Last Filed Vital Signs Vital Sign Reading Time Taken Comments Blood Pressure 114/56 04/23/2013 9:48 AM CDT Pulse 86 04/23/2013 9:48 AM CDT Temperature - - Respiratory Rate - - Oxygen Saturation - - Inhaled Oxygen Concentration - - Weight 74.4 kg (164 lb 0.4 oz) 04/23/2013 9:48 AM CDT Height - - Body Mass Index 28.7 12/21/2012 10:12 AM CDT documented in this encounter Medications [...] Progress Notes [place] Varma APRN, C.N.P. - 04/23/2013 9:40 AM CDT [id number] CHIEF COMPLAINT/REASON FOR VISIT Thrush. HISTORY OF PRESENT ILLNESS Briana is a very pleasant 78-year-old who has a history of having thrush after antibiotics. She recently was on antibiotics and now has started having a burning sensation with a white coating noted on her tongue. She thinks the thrush has reoccurred. CURRENT MEDICATIONS New reconciled medication Nystatin Swish and Swallow 4 times daily for 7 days. ALLERGIES Glutens and nuts. VITAL SIGNS Blood pressure 114/56 with a pulse of 86. PHYSICAL EXAMINATION GENERAL: Patient appears nondistressed. HEENT: Her head is normocephalic. Tongue with a white coating. No open lesions noted within her mouth. IMPRESSION/REPORT/PLAN Thrush. Her exam is consistent with thrush. She did have antibiotics. We will treat her with Nystatin Swish and Swallow 4 times daily for the next 7 days. I did put some refills on in case this does reoccur. The patient agrees with this plan. Patient Education Ready to learn No apparent learning barriers were identified Learning preferences include listening Explained diagnosis and treatment plan Patient/Child/Caregiver expressed understanding of the content [facility]akash [facility] Electronically Signed By: ALBANIA VARMA RN, [facility] On: 04/26/2013 07:48 AM Source: [facility] [id number] Document Id: [id number] documented in this encounter Miscellaneous Notes Miscellaneous - Bianca Garcia - 04/25/2013 8:53 AM CDT General Message Document Contains Addenda Addendum by BIANCA GARCIA RN on 25 April 2013 14:09:33 CDT patient informed Addendum by ALBANIA VARMA RN, CLINICAL CARE LEADER on 25 April 2013 12:33:46 CDT From: ALBANIA VARMA RN, CLINICAL CARE LEADER To: BIANCA GARCIA RN; Sent: 04/25/2013 12:33:46 CDT Subject: RE: General Message swallow From: BIANCA GARCIA RN To: ALBANIA VARMA RN, IVANA; Sent: 04/25/2013 08:53:01 CDT Subject: General Message Prescribed nystatin, patient wants to know whether swish and swallow or swish and spit. Pharmacist said to ask you. Thanks. Source: [facility] POWERCHART Document Id: [id number] Electronically signed by Dustin, [facility] [address] Security Officer [id number] at 02/11/2017 8:13 AM CDT Miscellaneous - [place] Varma, CYRIL, C.N.P. - 04/23/2013 10:36 AM CDT Ambulatory Patient Summary [address] [address] Visit Information Name: BRIANA LEON [facility] Number: [id number] Current Date: 04/23/2013 10:36:11 Physicians Attending Provider: ALBANIA VARMA RN, CLINICAL CARE LEADER Primary Care Provider: ALBANIA VARMA RN, CLINICAL CARE LEADER Your Medications Here is a list of your medications. It is important to take your medications as directed. Use a pillbox or chart to help remind you to take your medications. Please let your doctor or nurse know if you have problems taking your medications. Medication/Strength Dose Route Frequency Indications/Special Instructions/Comments/Notes nystatin (nystatin 100,000 units/mL oral suspension) 500,000 units Oral four times a day for 7 Days estradiol topical (Vagifem 10 mcg vaginal tablet) 10 mcg Vaginal 2 times a week *meloxicam (Mobic 7.5 mg oral tablet) 7.5 mg Oral two times a day gabapentin (gabapentin 300 mg oral tablet) 900 mg Oral once a day (at bedtime) fluticasone nasal (Flonase 0.05 mg/inh nasal spray) 2 spray(s) Nostrils(Both) once a day fexofenadine-pseudoephedrine (Rochelle-D 12 Hour 60 mg-120 mg oral tablet, extended release) 1 tab(s)Oral two times a day omeprazole (omeprazole 40 mg oral delayed release capsule) 40 mg Oral once a day simethicone (Gas-X 125 mg oral tablet, chewable) 125 mg Oral calcium citrate (Citracal) once a day cycloSPORINE ophthalmic (Restasis) one drop Eyes(Both) every 12 hours ferrous gluconate (ferrous gluconate) Oral two times a day aspirin (aspirin 81 mg oral tablet) 1 tab(s) Oral every other day cyanocobalamin (Vitamin B-12) 1,000 mcg Oral once a day multivitamin (Multiple Vitamins oral tablet) 1 tab(s) Oral once a day calcium carbonate (calcium (as carbonate) 600 mg oral tablet) 2 tab(s) Oral two times a day dorzolamide-timolol ophthalmic (Cosopt ophthalmic solution) 1 drop(s) once a day * You have let us know that you are not taking this medication as listed. Please talk with your primary care provider or the health care provider who prescribed the medication as soon as possible. Attention: If you have any medications at home that are not on this list, DO NOT take them until youcontact your provider for clarification. Your Allergies & Intolerances Substance Reaction Symptoms [...] 01/21/12 date unknown Atrophic vaginitis Active 07/27/2012 Your Upcoming Appointments Date Time Location Reason Provider No Appointments found Your Goals/Additional instructions: Source: [facility] POWERCHART Document Id: [id number] Miscellaneous - [place] Varma APRN C.N.P. - 04/23/2013 10:36 AM CDT Ambulatory Depart Summary [id number] [place] [address] Visit Information Name: BRIANA LEON [facility] Number: [id number] Visit Date: 04/23/2013 10:36:09 Attending Provider: ALBANIA VARMA RN, CLINICAL CARE LEADER Primary Care Provider: ALBANIA VARMA RN, CLINICAL CARE LEADER BRIANA LEON has been given the following list of medications: Your Medications It is important to take your medications as directed. Use a pill box or chart to help remind you to take your medications. Please let your doctor or nurse know if you have problems taking your medications. Medication/Strength Dose Route Frequency Indications/Special Instructions/Comments/Notes nystatin (nystatin 100,000 units/mL oral suspension) 500,000 units Oral four times a day for 7 Days estradiol topical (Vagifem 10 mcg vaginal tablet) 10 mcg Vaginal 2 times a week *meloxicam (Mobic 7.5 mg oral tablet) 7.5 mg Oral two times a day gabapentin (gabapentin 300 mg oral tablet) 900 mg Oral once a day (at bedtime) fluticasone nasal (Flonase 0.05 mg/inh nasal spray) 2 spray(s) Nostrils(Both) once a day fexofenadine-pseudoephedrine (Rochelle-D 12 Hour 60 mg-120 mg oral tablet, extended release) 1 tab(s)Oral two times a day omeprazole (omeprazole 40 mg oral delayed release capsule) 40 mg Oral once a day simethicone (Gas-X 125 mg oral tablet, chewable) 125 mg Oral calcium citrate (Citracal) once a day cycloSPORINE ophthalmic (Restasis) one drop Eyes(Both) every 12 hours ferrous gluconate (ferrous gluconate) Oral two times a day aspirin (aspirin 81 mg oral tablet) 1 tab(s) Oral every other day cyanocobalamin (Vitamin B-12) 1,000 mcg Oral once a day multivitamin (Multiple Vitamins oral tablet) 1 tab(s) Oral once a day calcium carbonate (calcium (as carbonate) 600 mg oral tablet) 2 tab(s) Oral two times a day dorzolamide-timolol ophthalmic (Cosopt ophthalmic solution) 1 drop(s) once a day * You have let us know that you are not taking this medication as listed. Please talk with your primary care provider or the health care provider who prescribed the medication as soon as possible. Attention: If you have any medications at home that are not on this list, DO NOT take them until youcontact your provider for clarification. Additional Information: Source: [facility] POWERCHART Document Id: [id number] Miscellaneous - Erika Noonan L.PDannN. - 04/23/2013 9:48 AM CDT Adult Contract Administration Coordinator Intake/History Adult Contract Administration Coordinator Intake/History Entered On: 04/23/2013 9:52 CDT Performed On: 04/23/2013 9:48 CDT by ERIKA NOONAN LPN, RT Intake Chief Complaint : concerned about sore white tongue x 1 week Temperature Core : 36.4 DegC(Converted to: 97.5 DegF) (LOW) Peripheral Pulse Rate : 86 /min Systolic Blood Pressure : 114 mmHg Diastolic Blood Pressure : 56 mmHg NIBP Mean : 75 mmHg BP Location : Left upper extremity Blood Pressure Cuff Size : Regular SpO2 : 98 % Oxygen Therapy : Room air Actual Weight : 74.4 kg(Converted to: 164 lb 0 oz) Weight Source : Standing scale Dosing Weight Clinic : 74.4 kg ERIKA NOONAN LPN, RT - 04/23/2013 9:48 CDT General Info Information Given By : Patient Preferred Communication Mode : Verbal Languages : Yakut ERIKA NOONAN LPN, RT - 04/23/2013 9:48 CDT Subjective Pain Symptoms : Yes ERIKA NOONAN LPN, RT - 04/23/2013 9:48 CDT Pain Pain Assessment Grid Pain 1 Location : Other: tongue Laterality : Bilateral ERIKA NOONAN LPN, RT - 04/23/2013 9:48 CDT Dependent Habits Tobacco Use/Currently Using : No Exposure to Tobacco Smoke : Care provider denies smoking in home Smoking Status : Never smoker ERIKA NOONAN LPN, RT - 04/23/2013 9:48 CDT Tobacco Use Grid Last Use : never ERIKA NOONAN LPN, RT - 04/23/2013 9:48 CDT Caffeine Use Grid Caffeine Use : Current Type : Coffee Frequency : Weekly ERIKA NOONAN LPN, RT - 04/23/2013 9:48 CDT Recreational Drug Use Grid Drug Use : None ERIKA NOONAN LPN, RT - 04/23/2013 9:48 CDT Source: [facility] Document Id: [id number] CDT!41 documented in this encounter Plan of Treatment Not on filedocumented as of this encounter Visit Diagnoses Not on filedocumented in this encounter
--- OUTSIDE RECORDS SUMMARY | 2022-05-06 13:12 | XMS_ITS | Encounter Summary ---
:1935 Author Organization [facility] Address [address] [place] [address] Care Team Providers Name Role Phone Unavailable Primary Care Provider Unavailable Encounter Details Date Type Department Care Team Description 05/23/2013 Hospital Encounter HX [facility] [address] [place] [phone] (Wo rk) Social History Tobacco Use Types Packs/Day Years Used Date Smoking Tobacco: Never Assessed Sex Assigned at Date Recorded Not on file documented as of this encounter Last Filed Vital Signs Vital Sign Reading Time Taken Comments Blood Pressure 106/58 05/23/2013 11:16 AM CDT Pulse 79 05/23/2013 11:16 AM CDT Temperature - - Respiratory Rate - - Oxygen Saturation - - Inhaled Oxygen Concentration - - Weight 74 kg (163 lb 2.3 oz) 05/23/2013 11:16 AM CDT Height - - Body Mass Index 27.85 05/15/2013 8:35 PM CDT documented in this encounter Medications [...] as of this encounter Progress Notes Cielo Bhakta M.D. - 05/23/2013 11:13 AM CDT [id number] CHIEF COMPLAINT/REASON FOR VISIT Follow-up hospital stay. HISTORY OF PRESENT ILLNESS Briana is a 78-year-old female who was recently admitted to the hospital. While recently in [place] she fell when getting out of the shower. She was initially seen in the emergency department in the [place] town she was in and diagnosed with a broken rib and a bruised hip. She was in a significant amount of pain and therefore her drove her all the way back to [place] and to the emergency department on ThursdayMay 15. She was admitted to the hospital due to her severe pain and was discharged that which was 3 days ago. She was sent home on oxycodone 10 mg twice daily as well as Percocet which she has not needed for the past few days. She reports that she continues to not feel well. Three days ago, she developed diarrhea reporting that she had too manyepisodes to count. Yesterday was the worst and she thinks in the afternoon she had maybe 6 to 8 episodes. She states there is a small amount of stool with it, but otherwise it is watery. She has had abdominal cramping and lots of gas. She also developed some lightheadedness after she got home from [facility]. She feels like she could fall asleep just sitting down. She is weak in the legs and reports having a hard time with her balance stating that she does not trust herself. She has felt nauseous but has not had any vomiting. This gets worse with eating. She has had decreased appetite. She continues to have some pain across her back more than where her rib fracture is. She was sent home from [facility] with MiraLAX, but states she has not taken that since she developed the diarrhea. She has been drinking a lot of fluid. She states she is nervous about her back because she has had back surgery in the past. CURRENT MEDICATIONS Reconciled. New medicine today is Flagyl 500 mg by mouth three times a day times 7 days. ALLERGIES Gluten. Nuts. CURRENT MEDICATIONS Review of systems as per history of present illness. VITAL SIGNS Temperature 36.2, pulse is 79 beats per minute, blood pressure is 106/58. Oxygen saturation is 98% on room air. Weight is 74 kg. Orthostatic vital signs were also negative, although patient did feel lightheaded with both sitting up and standing up, although her blood pressure and pulse were pretty much the same. PHYSICAL EXAMINATION GENERAL: Patient is alert and oriented, in no acute distress. She does move slowly due to her pain. CARDIOVASCULAR EXAM: Regular rate and rhythm; normal S1 and S2. No murmurs, rubs or gallops. LUNGS: Left side is fairly clear to auscultation. Right side has some fine basilar crackles. Patienthas decent air movement. CHEST WALL: Patient does have pain over her posterior left rib cage where her 8th rib fracture is. There is also a bruise along the side of her left rib cage. BACK: Patient has a small amount of tenderness over the upper portion of her right and left sacrum. There is no bruising over her back. EXTREMITIES: Patient has bruising over her left upper arm. This is starting to fade. She also has some tenderness over her left hip and some bruising. ABDOMEN: Soft, hyperactive bowel sounds. There is mild diffuse tenderness to palpation. No hepatosplenomegaly. No rebound or guarding. LABORATORY DATA: BMP and complete blood count were unremarkable. IMPRESSION/REPORT/PLAN 1. Diarrhea. Since the patient was in the hospital for 4 days, I do have concern that she may have Clostridium difficile. We are going to collect a stool to test for the C diff toxin. However, since I do have high suspicion based on her symptoms, we are also going to start her on Flagyl 500 mg three times a day for 1 week. We will have her return in 3 days' time if she is not improving. We discussed that her fatigue is probably a combination of things including her hospital stay, the diarrhea and possibly some dehydration, although her labs do not support that. 2. Left rib fracture. The patient thus far has been doing a good job with her breathing and pain management. She is going to finish out the long-acting oxycodone and once that is gone I recommended that she then take the Percocet as needed. 3. Lightheadedness. He did check for orthostasis today and this was negative. I recommended that patient continue to push fluids and we will monitor. PATIENT EDUCATION: Ready to learn No apparent learning barriers were identified Learning preferences include listening Explained diagnosis and treatment plan Patient/Child/Caregiver expressed understanding of the content Cielo Villa M.D./joby Electronically Signed By: CIELO GARCIA MD On: 05/29/2013 12:38 PM Source: [facility] MHSDOLBEYNONRADSYS Document Id: [id number] documented in this encounter Nursing Notes Lian Noonan L.P.N. - 05/23/2013 12:25 PM CDT Orthostatics Orthostatics Entered On: 05/23/2013 12:28 CDT Performed On: 05/23/2013 12:25 CDT by LIAN NOONAN LPN, RT Orthostatics Systolic Blood Pressure Supine : 129 mmHg Diastolic Blood Pressure Supine : 63 mmHg Pulse Supine : 76 /min Patient Response Supine : No response Systolic Blood Pressure Sitting : 133 mmHg Diastolic Blood Pressure Sitting : 65 mmHg Pulse Sitting : 78 /min Patient Response Sitting : Light-headedness Systolic Blood Pressure Standing : 132 mmHg Diastolic Blood Pressure Standing : 58 mmHg Pulse Standing : 76 /min Patient Response Standing : Light-headedness BP Location Orthostatics : Left upper extremity Blood Pressure Cuff Size Orthostatics : Regular LIAN NOONAN LPN, RT - 05/23/2013 12:25 CDT Source: [facility] POWERCHART Document Id: [id number] CDT!16 documented in this encounter Miscellaneous Notes Miscellaneous - Cielo Bhakta M.D. - 05/23/2013 12:38 PM CDT Ambulatory Patient Summary [address] [address] Visit Information Name: BRIANA LEON [facility] Number: [id number] Current Date: 05/23/2013 12:38:19 Physicians Attending Provider: CIELO GARCIA MD Primary Care Provider: ALBANIA VARMA RN, AUTOMOTIVE MAINTENANCE TECHNICIAN Your Medications Here is a list of your medications. It is important to take your medications as directed. Use a pillbox or chart to help remind you to take your medications. Please let your doctor or nurse know if you have problems taking your medications. Medication/Strength Dose Route Frequency Indications/Special Instructions/Comments/Notes metroNIDAZOLE (Flagyl 500 mg oral tablet) 500 mg Oral every 8 hours for 7 Days oxyCODONE (oxyCODONE 5 mg oral tablet) 5 mg-10 mg Oral every 4 hours as needed for Pain as needed for severe pain . acetaminophen (acetaminophen 325 mg oral tablet) 650 mg Oral three times a day polyethylene glycol 3350 (polyethylene glycol 3350 oral powder for reconstitution) 17 gm Oral once aday take daily while on oxycontin oxyCODONE (oxyCODONE 10 mg oral tablet, extended release) 10 mg Oral two times a day gabapentin (gabapentin 300 mg oral capsule) See Instructions one am , one at noon and 3 cap(s) PO Bedtime ibuprofen (ibuprofen 600 mg oral tablet) See Instructions 1 tab(s) PO three times per day with food estradiol topical (Vagifem 10 mcg vaginal tablet) 10 mcg Vaginal 2 times a week gabapentin (gabapentin 300 mg oral tablet) 900 mg Oral once a day (at bedtime) fluticasone nasal (Flonase 0.05 mg/inh nasal spray) 2 spray(s) Nostrils(Both) once a day fexofenadine-pseudoephedrine (Rochelle-D 12 Hour 60 mg-120 mg oral tablet, extended release) 1 tab(s)Oral two times a day omeprazole (omeprazole 40 mg oral delayed release capsule) 40 mg Oral once a day calcium citrate (Citracal) once a day cycloSPORINE ophthalmic (Restasis) one drop Eyes(Both) every 12 hours aspirin (aspirin 81 mg oral tablet) 1 tab(s) Oral every other day cyanocobalamin (Vitamin B-12) 1,000 mcg Oral once a day multivitamin (Multiple Vitamins oral tablet) 1 tab(s) Oral once a day dorzolamide-timolol ophthalmic (Cosopt ophthalmic solution) 1 drop(s) once a day Attention: If you have any medications at [...] Upcoming Appointments Date Time Location Reason Provider 05/24/2013 09:45 [facility] FU ON HOSP. PAIN MGMT Cielo Villa MD Your Goals/Additional instructions: Source: [facility] POWERCHART Document Id: [id number] Miscellaneous - Cielo Bhakta M.D. - 05/23/2013 12:38 PM CDT Ambulatory Depart Summary [id number] [place] [address] Visit Information Name: BRIANA LEON [facility] Number: [id number] Visit Date: 05/23/2013 12:38:17 Attending Provider: CIELO GARCIA MD Primary Care Provider: ALBANIA VARMA RN, AUTOMOTIVE MAINTENANCE TECHNICIAN BRIANA LEON has been given the following list of medications: Your Medications It is important to take your medications as directed. Use a pill box or chart to help remind you to take your medications. Please let your doctor or nurse know if you have problems taking your medications. Medication/Strength Dose Route Frequency Indications/Special Instructions/Comments/Notes metroNIDAZOLE (Flagyl 500 mg oral tablet) 500 mg Oral every 8 hours for 7 Days oxyCODONE (oxyCODONE 5 mg oral tablet) 5 mg-10 mg Oral every 4 hours as needed for Pain as needed for severe pain . acetaminophen (acetaminophen 325 mg oral tablet) 650 mg Oral three times a day polyethylene glycol 3350 (polyethylene glycol 3350 oral powder for reconstitution) 17 gm Oral once aday take daily while on oxycontin oxyCODONE (oxyCODONE 10 mg oral tablet, extended release) 10 mg Oral two times a day gabapentin (gabapentin 300 mg oral capsule) See Instructions one am , one at noon and 3 cap(s) PO Bedtime ibuprofen (ibuprofen 600 mg oral tablet) See Instructions 1 tab(s) PO three times per day with food estradiol topical (Vagifem 10 mcg vaginal tablet) 10 mcg Vaginal 2 times a week gabapentin (gabapentin 300 mg oral tablet) 900 mg Oral once a day (at bedtime) fluticasone nasal (Flonase 0.05 mg/inh nasal spray) 2 spray(s) Nostrils(Both) once a day fexofenadine-pseudoephedrine (Rochelle-D 12 Hour 60 mg-120 mg oral tablet, extended release) 1 tab(s)Oral two times a day omeprazole (omeprazole 40 mg oral delayed release capsule) 40 mg Oral once a day calcium citrate (Citracal) once a day cycloSPORINE ophthalmic (Restasis) one drop Eyes(Both) every 12 hours aspirin (aspirin 81 mg oral tablet) 1 tab(s) Oral every other day cyanocobalamin (Vitamin B-12) 1,000 mcg Oral once a day multivitamin (Multiple Vitamins oral tablet) 1 tab(s) Oral once a day dorzolamide-timolol ophthalmic (Cosopt ophthalmic solution) 1 drop(s) once a day Attention: If you have any medications at home that are not on this list, DO NOT take them until youcontact your provider for clarification. Additional Information: Source: [facility] POWERCHART Document Id: [id number] Miscellaneous - Lian Noonan L.P.N. - 05/23/2013 11:16 AM CDT Adult [employer] Intake/History Document Has Been Updated Adult [employer] Intake/History Entered On: 05/23/2013 11:22 CDT Performed On: 05/23/2013 11:16 CDT by LIAN NOONAN LPN, RT Intake Chief Complaint : f/u hospital stay. Concerned about nausea, weakness, dizziness, and diarhea x 3 days. LIAN NOONAN LPN, RT - 05/23/2013 11:24 CDT Temperature Core : 36.2 DegC(Converted to: 97.2 DegF) (LOW) Peripheral Pulse Rate : 79 /min Systolic Blood Pressure : 106 mmHg Diastolic Blood Pressure : 58 mmHg NIBP Mean : 74 mmHg BP Location : Left upper extremity Blood Pressure Cuff Size : Regular SpO2 : 98 % Oxygen Therapy : Room air Actual Weight : 74 kg(Converted to: 163 lb 2 oz) Weight Source : Standing scale Dosing Weight Clinic : 74 kg LIAN NOONAN LPN, RT - 05/23/2013 11:16 CDT General Info Information Given By : Patient Preferred Communication Mode : Verbal Languages : Occitan LIAN NOONAN LPN, RT - 05/23/2013 11:16 CDT Subjective Pain Symptoms : Yes LIAN NOONAN LPN, RT - 05/23/2013 11:16 CDT Pain Pain Assessment Grid Pain 1 Location : Other: mid back Laterality : Bilateral LIAN NOONAN LPN, - 05/23/2013 11:16 CDT Dependent Habits Tobacco Use/Currently Using : No Exposure to Tobacco Smoke : Care provider denies smoking in home Smoking Status : Never smoker LIAN NOONAN LPN, RT - 05/23/2013 11:16 CDT Tobacco Use Grid Last Use : never LIAN NOONAN LPN, 05/23/2013 11:16 CDT Caffeine Use Grid Caffeine Use : Current Type : Coffee Frequency : Weekly ILAN NOONAN LPN, RT - 05/23/2013 11:16 CDT Recreational Drug Use Grid Drug Use : None LIAN NOONAN LPN, 05/23/2013 11:16 CDT Source: [facility] POWERCHART Document Id: [id number] CDT!3 documented in this encounter Plan of Treatment Not on filedocumented as of this encounter Procedures Procedure Name Priority Date/Time Associated Diagnosis Comme nts CBC WITHOUT Routine 05/23/2013 11:58 AM Results for this DIFFERENTIAL, B CDT procedure ar e in the results section. BASIC METABOLIC Routine 05/23/2013 11:58 AM Resul ts for this PANEL, S/P CDT procedure are i n the results section. documented in this encounter Results (ABNORMAL) CBC without Differential (05/23/2013 11:58 AM CDT) Analysis Performed At Patho logist Time Signature Leukocytes 5.0 3.4 - 10.5 POWERCHART X109L Erythrocytes 3.84 (L) 3.90 - POWERCHART 5.03 [id number] Hemoglobin 11.7 (L) 12.0 - POWERCHART 15.5 GDL Hematocrit 34.8 (L) 34.9 - POWERCHART 44.5 MCV 90.6 82.0 - POWERCHART 98.0 FL HX RDW 11.9 11.9 - POWERCHART 15.5 Platelet Count 246 150 - 450 POWERCHART [id number] Specimen (Source) Anatomical Collection Method Collection Time Re ceived Time Location / / Volume Laterality Blood 05/23/2013 11:58 AM CDT Cielo Turner M.D. LAB BLOOD ADD-ON Performing Organization Address City/State/ZIP Code Phon e Number POWERCHART (ABNORMAL) BMP (Basic Metabolic Panel) (05/23/2013 11:58 AM CDT) Patholo gist Method Time Signature CO2 Total 29.8 (H) 23.0 - POWERCHART 29.0 MMOLL Sodium, S 132.2 (L) 135.0 - POWERCHART 145.0 MML Potassium, S 4.4 3.6 - 4.8 POWERCHART MMOLL Chloride, S 95 (L) 100 - 108 POWERCHART MMOLL Anion Gap 7 (L) 10 - 20 POWERCHART MMOLL BUN (Blood Urea 19 (H) 7 - 18 POWERCHART Nitrogen), S MGDL Creatinine 0.96 0.60 - POWERCHART 1.30 MGDL Calcium, Total, 9.4 8.8 - 10.2 POWERCHART S MGDL HXeGFR (MDRD) 57 (L) >=60 POWERCHART [id number] Comment: A GFR of <60 mL/min is indicative of chr onic kidney disease. (MDRD calculation valid on patients 18-7 0 years.) eGFR Black/ >60 >=60 [id number] POWERCHART Glucose 74 70 - 139 MGDL POWERCHART Specimen (Source) Anatomical Collection Method Collection Time Re ceived Time Location / / Volume Laterality Blood 05/23/2013 11:58 AM CDT Cielo Turner M.D. LAB BLOOD ADD-ON Performing Organization Address City/State/ZIP Code Phon e Number POWERCHART documented in this encounter Visit Diagnoses Not on filedocumented in this encounter
--- OUTSIDE RECORDS SUMMARY | 2022-05-06 13:12 | XMS_ITS | Encounter Summary ---
:1935 Author Organization [facility] Address [address] [place] [address] Care Team Providers Name Role Phone Unavailable Primary Care Provider Unavailable Encounter Details Date Type Department Care Team Description 11/14/2013 Hospital Encounter HX [facility] Mary Cortez, CYRIL, C.N.P., D. N.P. [address] [place] [phone] (Wo rk) Social History Tobacco Use [...] eye daily. documented as of this encounter Consult Notes Conversion, Historical Provider Ser - 11/14/2013 9:34 AM CST [id number] CHIEF COMPLAINT/REASON FOR VISIT Initial wellness coaching visit. OBJECTIVE INFORMATION/SESSION OVERVIEW Patient was seen in [facility] today for initial wellness coaching visit around the area oflifestyle management in regard to exercise, eating and celiac disease. Today I met with Kathryn Lu and she is interested in getting to an ideal body weight of 145pounds as she is currently at 161. No with a 5' 3 frame. She also shared that she has been diagnosed as a celiac 5 years ago and since then has been putting on approximately 5 pounds each year. She attributes the weight gain to increasecarbohydrates and additional calories and the gluten- free foods that she eats. She also is allergic to gluten in addition to nuts and feels that her eating choices are more limited in nature and sometimes the things that she is able to eat that are gluten and nut-free does have more of a rich calorie density to it. She has changed her diet since being diagnosed as celiac 5 years ago as she was diagnosed because she was having lots of loose bowels and gas in her stomach. She now does not have gluten or nuts or seeds in her diet. She feels her movement/activity level has pretty much stayed the same but has been challenged in the last 2 years due to an accidental fall that she had in the bathtub 2 years ago in which she broke several ribs. She has a little bit of apprehension and fear around moving into an exercise program as she is afraid of hurting herself and falling again. She did identify several places that she could walk indoors and also would be able to ride her bike indoors and would liketo start moving forward into that but has fear around it. She also identified that she would like tohave a workout partner but does not have so at this time. In addition, she would like to work on portion size and also implementing more protein and healthy fats into her diet. New goal set. Would like to explore an exercise plan in which she would walk at the school in town at the time of 9:30 to 10 a.m. for approximately 20 minutes three to four times a week. She would liketo begin this in about 2 weeks on Thursday11/28/2013 as she will be busy over the next few weeks and traveling and out of town so a 2 week start date would be perfect for her. Around the eating plan, she would like to be more aware of her portion size, also use the plate approaching in which she was put everything that she is going to eat on her plate and put away the rest of the items so there would not be temptation to go back for seconds or at additional portions onto her plate. She is open to starting this eating plan any time and will explore this moving forward over the next few weeks. Frequency: would like to meet every 2 to 3 weeks as for accountability and also continuing on with creating a lifestyle plan and changing things as she tries out different methods of eating and exercise. Will continue on this 2 to 3-week cycle duration as she sees helpful. Wil Barr/russell Electronically Signed By: WIL BARR On: 11/16/2013 11:17 AM Source: [facility] MHSDOLBEYNONRADSYS Document Id: [id number] documented in this encounter Plan of Treatment Not on filedocumented as of this encounter Visit Diagnoses Not on filedocumented in this encounter
--- OUTSIDE RECORDS SUMMARY | 2022-05-06 13:12 | XMS_ITS | Encounter Summary ---
:1935 Author Organization [facility] Address [address] [place] [address] Care Team Providers Name Role Phone Unavailable Primary Care Provider Unavailable Encounter Details Date Type Department Care Team Description 07/05/2013 Hospital Encounter HX [facility] ME Mary Cortez, CYRIL, C.N.P., D. N.P. [address] [place] [phone] (Wo rk) Social History Tobacco Use [...]
--- OUTSIDE RECORDS SUMMARY | 2022-05-06 13:12 | XMS_ITS | Encounter Summary ---
:1935 Author Organization [facility] Address [address] [place] [address] Care Team Providers Name Role Phone Unavailable Primary Care Provider Unavailable Encounter Details Date Type Department Care Team Description 12/13/2012 - Hospital Encounter HX [facility] [place] Varma, 01/07/2013 SRV CYRIL, C.N.P., D.N.P. [address] [place] [address] Social History Tobacco Use Types Packs/Day Years Used Date Smoking Tobacco: Never Assessed Sex Assigned at Date Recorded Not on file documented as of this encounter Discharge Summaries Bianca Villalobos, P.T. - 04/29/2013 12:00 AM CDT [id number] IMPRESSION/REPORT/PLAN The patient was evaluated and treated under the referral of [place] Varma for hip and leg pain. Patient was seen for a total of 5 treatment sessions, two of them being evaluations, her plan of care included patient education, home exercise program, range of motion, stretching, strengthening, stabilization exercises and modalities. Patient progressed towards all goals and was discharged into an independent home exercise program due to progress. Shawn JosephTDann/joby Electronically Signed By: BIANCA VILLALOBOS On: 05/05/2013 03:05 PM Source: [facility] MHSDOLBEYNONRADSYS Document Id: [id number] documented in this encounter Medications at Time [...] encounter Progress Notes Bianca Villalobos P.T. - 01/07/2013 12:00 AM CDT [id number] CHIEF COMPLAINT/REASON FOR VISIT Patient has reported that she was doing well. She is working on home exercise program but she has been sore the last couple days in the posterior low back. IMPRESSION/REPORT/PLAN We did perform palpation of ASIS, PSIS, greater trochanter, and iliac crest are all equal in height.Performed stretching of the hamstrings, single knee to chest and piriformis stretches times 15 minutes. We then completed with ultrasound treatment increased to 10 minutes at 1 MHz 1.5 larkin per centimeter squared located just inferior to the PSIS on the left side. Patient tolerated this well. Total treatment time today was 25 minutes. Plan is to continue as needed. Bianca Villalobos D.P.T./joby DOCID: [110] Electronically Signed By: BIANCA VILLALOBOS On: 01/10/2013 03:33 PM Source: [facility] MHSDOLBEYNONRADSYS Document Id: [id number] Bianca Villalobos P.T. - 12/27/2012 12:00 AM CDT [id number] CHIEF COMPLAINT/REASON FOR VISIT The patient has no new complaints. IMPRESSION/REPORT/PLAN We did perform stretching of the hamstrings, single knee to chest, piriformis stretches performed bilaterally, multiple repetitions. Performed holding times 30 seconds each. We then performed continuous ultrasound over the right greater trochanter 1 MHz 1.5 larkin per centimeter squared times 6 minutes. We also performed over the left posterior aspect of the hip just inferior to the PSIS at 1 MHz 1.5 larkin per centimeter squared times 6 minutes. Total treatment time today was 15 minutes of therapeutic exercise and 12 minutes of ultrasound treatments. Patient will continue with home exercise program.We did clarify one exercise with her as she did have a question but overall she has no concerns at this time. Patient Education Ready to learn No apparent learning barriers were identified Learning preferences include listening Explained diagnosis and treatment plan Patient/Child/Caregiver expressed understanding of the content Patient verbalized and demonstrated understanding. Plan is to continue. Bianca Villalobos D.P.T./[facility] DOCID: [110] Electronically Signed By: BIANCA VILLALOBOS On: 12/30/2012 02:31 PM Source: [facility] MHSDOLBEYNONRADSYS Document Id: [id number] Bianca Villalobos P.T. - 12/24/2012 12:00 AM CDT [id number] CHIEF COMPLAINT/REASON FOR VISIT Patient has no new complaints. Still having pain in the left hip posteriorly. IMPRESSION/REPORT/PLAN We did perform stretching including hamstring, single knee to chest and piriformis stretches on the left lower extremity. Performed posterior pelvic tilts at two times 10 repetitions. We performed TA sets at two times 10 repetitions. We also performed manually resisted hip abduction and adduction. We also performed continuous ultrasound of the left posterior aspect of the hip just inferior to the PSIS. Patient tolerated this well at 1 MHz 1.5 larkin per centimeter squared times 8 minutes. Total treatment time today was 28 minutes. Plan is to continue. Bianca Villalobos D.P.T./joby DOCID: [id number] Electronically Signed By: BIANCA VILLALOBOS On: 12/27/2012 11:34 AM Source: [facility] MHSDOLBEYNONRADSYS Document Id: [id number] documented in this encounter Consult Notes Bianca Villalobos P.T. - 12/22/2012 12:00 AM CDT [id number] CHIEF COMPLAINT/REASON FOR VISIT Patient presents to physical therapy today for actual left hip pain. Today she is noting pain in thesciatic region, some soreness with palpation of the greater trochanter which began on Thursday. Since the last treatment session in which we evaluated the right hip, the patient reports that is now pretty much symptom- free and not having any pain. The left hip, however is creating pain levels at a 6 outof 10. Symptoms seem to be worse at night and seem to be better with use of heat. PHYSICAL EXAMINATION We did focus our reevaluation today on the left hip. Hip range of motion is within normal limits. Tightness noted on hip abduction, but range of motion is functional. No increase in pain noted. Straight leg raise is negative. Palpation of the ASIS, PSIS, greater trochanter and iliac crest are all equal in height bilaterally. Gait pattern is noted with equal weightbearing and equal stride length bilaterally. Con test was negative but did produce some back pain. Piriformis test was also negative. Patient will be treated for left hip pain as well. Patient continues to require skilled physical therapy for pain reduction, develop home exercise program, improve strength, range of motion, flexibility. IMPRESSION, REPORT, PLAN We initiated continuous ultrasound over the left posterior aspect of the hip at 1MHz, 1.0 Larkin/cm squared times 8 minutes. We initiated exercises including single knee to chest and piriformis stretches holding 30 seconds times 3 reps 1- 2 times per day. She will continue with posterior pelvic tilts and seated hip abduction with theraband at 3 x 10 reps daily. We also will have patient work on glutealsets at 30 reps. She tolerated the treatment well and without complaint. Patient goals will remain the same but will be focused bilaterally instead of only on the right leg over the next 3 to 4 weeks. Her plan of care will include patient education, home exercise program, stretching, strengthening, stabilization exercises as well as modalities for pain control. Patient resp onded beautifully to ultrasound on the first session. She has good rehab potential to achieve goals.Plan to see patient 1 to 3 times a week for the next 4 weeks. Bianca Villalobos D.P.T./joby cc: Aakash Quiroga Electronically Signed By: BIANCA VILLALOBOS On: 12/23/2012 09:23 AM Modified by and Electronically Signed by: BIANCA VILLALOBOS On: 12/23/2012 09:23 AM Co-Signed By: ALBANIA VARMA RN, SCRAP METAL COLLECTOR On: 12/23/2012 05:17 PM Source: [facility] MHSDOLBEYNONRADSYS Document Id: [id number] Bianca Villalobos P.T. - 12/13/2012 12:00 AM CDT [id number] CHIEF COMPLAINT/REASON FOR VISIT The patient is referred to physical therapy by [place] Varma for acute leg pain. The patient reports that her symptoms began a little over a week ago. She had been doing some increased walking and noted that she began to get leg pain shooting down the lateral aspect of her right lower extremity to her ankle. Her symptoms she rates at a 5/10. When she takes a pain pill at this time she is pain-free. Thepatient has no prior history of total hip arthroplasty. However, she does have a history of disc bulging with permanent damage from radiculopathy. PHYSICAL EXAMINATION The patient has a normal gait pattern. She poses no increased risk of falls with the tug test at this time. Hip range of motion is within normal limits on the right hip. Manual muscle testing: The right quadriceps are a 4/5, hamstring 5/5, plantar flexion a 5/5, dorsiflexion 3/5, abduction/adduction at a 4+/5. Hamstring length is limited to 45 degrees of hip flexion measured in a supine position withthe opposite leg extended. Straight leg raise is negative. Con test is negative. Piriformis test is negative. Palpable pain is noted over the right greater trochanter. The patient will be treated for leg pain. Patient Education Ready to learn No apparent learning barriers were identified Learning preferences include listening Explained diagnosis and treatment plan Patient/Child/Caregiver expressed understanding of the content The patient requires skilled physical therapy to reduce pain, develop a home exercise program, improve strength, range of motion, and flexibility. IMPRESSION/REPORT/PLAN We initiated continuous ultrasound over the right greater trochanter at 1 MHz, began at 1.5 larkin per centimeter squared and decreased to 1.2 larkin per centimeter squared during treatment due to sensitivity. Performed times 8 minutes. We then initiated a home exercise program which will consist of hams tring stretches, single knee to chest stretches at 3 repetitions holding for 30 seconds each. She will also performed posterior pelvic tilts at 3 times 10 repetitions, glut sets at 3 times 10 repetitions, and seated hip abduction with a green Thera-Band at 3 times 10 repetitions. The patient verbalized understanding and was given a written handout with illustrations. Tolerated the exercises without difficulty. PATIENT GOALS: 1. Patient will safely and independently perform an independent home exercise program in 1 to 2 weeks. 2. Patient will report a 50% reduction in pain or greater in 3 to 4 weeks. 3. Patient will increase right lower extremity strength by a minimum of 1 muscle grade in 3 to 4 weeks. PLAN OF CARE Patient education home exercise program, stretching, strengthening and stabilization exercises as well as modalities as needed for pain control. Good rehab potential to achieve goals. Plan to see patient 1 to 3 times per week for up to 4 weeks as needed for symptom control without exceeding 12 treatment sessions. Bianca Villalobos D.P.T./[facility] cc: [place] Diego, F.N.P. Electronically Signed By: BIANCA VILLALOBOS On: 12/20/2012 05:20 PM Co-Signed By: ALBANIA VARMA RN, SCRAP METAL COLLECTOR On: 12/21/2012 03:58 PM Source: [facility] MHSDOLBEYNSHANEKARADSYS Document Id: [id number] documented in this encounter Plan of Treatment Not on filedocumented as of this encounter Visit Diagnoses Not on filedocumented in this encounter
--- OUTSIDE RECORDS SUMMARY | 2022-05-06 13:12 | XMS_ITS | Encounter Summary ---
:1935 Author Organization [facility] Address [address] [place] [address] Care Team Providers Name Role Phone Unavailable Primary Care Provider Unavailable Encounter Details Date Type Department Care Team Description 07/01/2013 Hospital Encounter HX [facility] [place] Varma, CYRIL, C.N.P., D. N.P. [address] [place] [address] (Wo rk) Social History Tobacco Use Types Packs/Day Years Used Date Smoking Tobacco: Never Assessed Sex Assigned at Date Recorded Not on file documented as of this encounter Last Filed Vital Signs Vital Sign Reading Time Taken Comments Blood Pressure 110/70 07/01/2013 2:10 PM CDT Pulse 72 07/01/2013 2:10 PM CDT Temperature - - Respiratory Rate 14 07/01/2013 2:10 PM CDT Oxygen Saturation - - Inhaled Oxygen Concentration - - Weight 73.7 kg (162 lb 7.7 oz) 07/01/2013 2:10 PM CDT Height - - Body Mass Index 27.74 05/15/2013 8:35 PM CDT documented in this [...] Progress Notes [place] Varma APRN, C.N.P. - 07/01/2013 1:58 PM CDT [id number] CHIEF COMPLAINT/REASON FOR VISIT 1. Pain. HISTORY OF PRESENT ILLNESS Briana is a very pleasant 78-year-old who has some fractured ribs after a fall. She was hospitalized. She is here today to continue to review her pain management and wean her off of her narcotics. She has been taking them regularly every day. We will have her take on a p.r.n. basis and then discontinue.She otherwise states that she is feeling pretty well. She can use Tramadol for pain if necessary. MEDICATIONS Please see the EMR. ALLERGIES Glutens. Nuts. VITAL SIGNS Please see the EMR. PHYSICAL EXAMINATION IN GENERAL: Patient appears non-distressed. LUNGS: Her lungs are clear to auscultation. CHEST WALL: She has a little bit of tenderness noted on the left side of her chest wall area, however, no bruising noted. IMPRESSION/REPORT/PLAN 1. Recent fractured rib. Doing much better. We will wean her off of her narcotics. She can use Tramadol on an as-needed basisand this was all written out for patient. She will report if any worsening symptoms. PATIENT EDU #1 Patient Education Ready to learn No apparent learning barriers were identified Learning preferences include listening Explained diagnosis and treatment plan Patient/Child/Caregiver expressed understanding of the content. [place] Varma, MarshallNDannPDann/tommy Electronically Signed By: ALBANIA VARMA RN, DRAPERY MAKER On: 07/06/2013 12:41 PM Source: [facility] GRZEGORZSDNALLELY Document Id: [id number] documented in this encounter Miscellaneous Notes Miscellaneous - [place] Varma APRN, C.N.P. - 07/01/2013 2:36 PM CDT Ambulatory Patient Summary [address] [place] [address] Visit Information Name: BRIANA LEON [facility] Number: [id number] Current Date: 07/01/2013 14:36:29 Physicians Attending Provider: ALBANIA VARMA RN, DRAPERY MAKER Primary Care Provider: ALBANIA VARMA RN, DRAPERY MAKER BRIANA LEON has been given the following [...] medications. Medication/Strength Dose Route Frequency Indications/Special Instructions/Comments/Notes traMADol (traMADol 50 mg oral tablet) 100 mg Oral every 6 hours as needed for Pain may take 1-2 tabsevery 4-6hrs gabapentin (gabapentin 300 mg oral capsule) 300 mg Oral three times a day acetaminophen (acetaminophen 325 mg oral tablet) 650 mg Oral three times a day as needed for Pain *ibuprofen (ibuprofen 600 mg oral tablet) See Instructions Pain 1 tab(s) PO three times per day withfood as needed estradiol topical (Vagifem 10 mcg vaginal tablet) 10 mcg Vaginal 2 times a week fluticasone nasal (Flonase 0.05 mg/inh nasal spray) [...] unknown Eye disorder Active 01/21/12 date unknown 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 Your Goals/Additional instructions: Source: [facility] POWERCHART Document Id: [id number] Miscellaneous - [place] Varma APRN, C.N.P. - 07/01/2013 2:36 PM CDT Ambulatory Depart Summary [address] [place] [address] Visit Information Name: BRIANA LEON [facility] Number: [id number] Visit Date: 07/01/2013 14:36:28 Attending Provider: ALBANIA VARMA RN, DRAPERY MAKER Primary Care Provider: ALBANIA VARMA RN, DRAPERY MAKER BRIANA LEON has been given the following list of medications: Your Medications It is important to take your medications as directed. Use a pill box or chart to help remind you to take your medications. Please let your doctor or nurse know if you have problems taking your medications. Medication/Strength Dose Route Frequency Indications/Special Instructions/Comments/Notes traMADol (traMADol 50 mg oral tablet) 100 mg Oral every 6 hours as needed for Pain may take 1-2 tabsevery 4-6hrs gabapentin (gabapentin 300 mg oral capsule) 300 mg Oral three times a day acetaminophen (acetaminophen 325 mg oral tablet) 650 mg Oral three times a day as needed for Pain *ibuprofen (ibuprofen 600 mg oral tablet) See Instructions Pain 1 tab(s) PO three times per day withfood as needed estradiol topical (Vagifem 10 mcg vaginal tablet) 10 mcg Vaginal 2 times a week fluticasone nasal (Flonase 0.05 mg/inh nasal spray) [...] your provider for clarification. Additional Information: Source: [facility] POWERCHART Document Id: [id number] Miscellaneous - Tabitha Larios L.P.N. - 07/01/2013 2:10 PM CDT Adult Learning And Development Analyst Intake/History Adult Learning And Development Analyst Intake/History Entered On: 07/01/2013 14:13 CDT Performed On: 07/01/2013 14:10 CDT by TABITHA LARIOS Intake Chief Complaint : follow up to rib fracture and hospitalization her to discuss geting off pain meds Temperature Core : 36.5 DegC(Converted to: 97.7 DegF) Peripheral Pulse Rate : 72 /min Respiratory Rate : 14 /min Heart Rhythm : Regular Systolic Blood Pressure : 110 mmHg Diastolic Blood Pressure : 70 mmHg NIBP Mean : 83 mmHg BP Location : Right upper extremity Blood Pressure Cuff Size : Regular Actual Weight : 73.7 kg(Converted to: 162 lb 8 oz) Weight Source : Standing scale Dosing Weight Clinic : 73.7 kg TABITHA LARIOS - 07/01/2013 14:10 CDT General Info Information Given By : Patient Languages : Mohawk TABITHA LARIOS - 07/01/2013 14:10 CDT Subjective Pain Symptoms : No TABITHA LARIOS - 07/01/2013 14:10 CDT Dependent Habits Tobacco Use/Currently Using : No Exposure to Tobacco Smoke : Care provider denies smoking in home Smoking Status : Never smoker TABITHA LARIOS - 07/01/2013 14:10 CDT Tobacco Use Grid Last Use : never TABITHA LARIOS - 07/01/2013 14:10 CDT Caffeine Use Grid Caffeine Use : Current Type : Coffee Frequency : Weekly TABITHA LARIOS - 07/01/2013 14:10 CDT Recreational Drug Use Grid Drug Use : None TABITHA LARIOS 07/01/2013 14:10 CDT [facility] Document Id: [id number] CDT!35 documented in this encounter Plan of Treatment Not on filedocumented as of this encounter Visit Diagnoses Not on filedocumented in this encounter
--- OUTSIDE RECORDS SUMMARY | 2022-05-06 13:12 | XMS_ITS | Encounter Summary ---
:1935 Author Organization [facility] Address [address] [place] [address] Care Team Providers Name Role Phone Unavailable Primary Care Provider Unavailable Encounter Details Date Type Department Care Team Description 11/30/[address] [facility] Gerhard Aquino M.D. [address] [place], [place] [address] ([facility]) Social History Tobacco Use Types Packs/Day Years Used Date Smoking Tobacco: Never Assessed Sex Assigned at Date Recorded Not on file documented as of this encounter Last Filed Vital Signs Vital Sign Reading Time Taken Comments Blood Pressure 139/64 11/30/2013 9:56 AM CDT Pulse 76 11/30/2013 9:56 AM CDT Temperature - - Respiratory Rate 16 11/30/2013 9:56 AM CDT Oxygen Saturation - - Inhaled Oxygen Concentration - - Weight 73.4 kg (161 lb 13.1 oz) 11/30/2013 8:10 AM CDT Height 158.8 cm (5' 2.52) 11/30/2013 9:56 AM CDT Body Mass Index 29.11 11/30/2013 8:10 AM CDT documented in this encounter Discharge Summaries Gerhard Roman M.D. - 11/30/2013 9:55 AM CDT Hospital Discharge Instructions [facility] [address] [place], [place] [id number] Patient Discharge Instructions Name: KATHRYN LEON Current Date: 11/30/2013 09:55:55 : 1935 12:00 AM [facility] Number: [id number] Patient Address: [address] [place] [phone] Patient Primary Care Provider: Name: ALBANIA VARMA RN, EXTRACORPOREAL TECHNICIAN Discharge Diagnosis: [facility] in [place] would like to thank you for allowing us to assist you withyour healthcare needs. The following includes patient education materials and information regarding your injury/illness. Comment: CAROLYN ARCHANA has been given the following list of follow-up instructions, medication list, and patient education materials: Follow-up Instructions Discharge Diet Diet Type: Resume previous diet Discharge Medication Instruction Medication Instruction: Resume all usual medications Medications Medication/Strength How to Take Indications/Special Instructions/Comments/Notes for [...] 10 mcg, Vaginal, 2 times a week ferrous sulfate (ferrous sulfate 325 mg (65 mg elemental iron) oral tablet) 1 Tablet(s), Oral, once a day fexofenadine-pseudoephedrine (Rochelle-D 12 Hour 60 mg-120 mg oral tablet, extended release) 1 Tablet(s), Oral, two times a day Dextr/ActiViews [phone] fluticasone nasal (Flonase 0.05 mg/inh nasal spray) 2 Rea(s), Nostrils(Both), once a day gabapentin (gabapentin 300 mg oral capsule) 1 cap, Oral, three times a day ibuprofen (ibuprofen 600 mg oral tablet) See Instructions, as needed for Pain 1 tab(s) PO three times per day with food as needed methylcellulose (Citrucel Lax) 3 Tablet(s), Oral, once a day multivitamin (Multiple Vitamins oral tablet) 1 Tablet(s), Oral, once a day omeprazole (omeprazole 40 mg oral delayed release capsule) 1 cap, Oral, once a day Stop Taking the Following Medications: Medication list as of 11-30-13 09:55 Attention: If you have any medications at home that are not on this list, DO NOT take them until youcontact your provider for clarification. Give a copy of your medication list to your primary care provider. Update your medication list any time medications or doses are changed and carry your medication list at all times in case of emergency. Comment: Electronically Signed By: GERHARD ROMAN MD Signed On:30-NOV-2013 09:55:44 Your Upcoming Appointments Date Time Location Reason Provider 12/05/2013 10:00 [facility] Family Med motivation exercises [facility] Health Preschool Associate Teacher CAROLYN Strange MARY CATHERINE , have received the attached patient education materials/instructions and have verbalized understanding: Patient Signature Date Time Care Provider Signature Date Time [id number] Discharge Instructions (Adults)Endoscopy/Colonoscopy/Flexible Sigmoidoscopy Post-Procedure Discharge Instructions Date: Saturday, November 30, 2013 Procedure: Endoscopy Person(s) taught: Patient Your procedure today showed: Large Hiatal Hernia, inflammation in esophagus You have just had an endoscopic procedure. Your follow-up instructions are indicated below. Do not drive or use heavy equipment for 24 hours. The drugs you were given may cause dizziness or drowsiness and slower reaction time You may resume eating, drinking, usual medications at: right away You may resume exercise tomorrow, Do not drink alcohol for 8 hours. It interacts with the medicationused, For safety precautions, have an adult stay with you five hours post-procedure, The physician or nurse will contact you by letter in one week Repeat exam should be performed in As needed WHAT TO WATCH FOR: Problems rarely occur after the exam; however, it is important for you to be aware of the early signs of a possible complication. Immediately call your doctor or the Emergency Department ([phone])if you have any questions OR notice any of the followin. Unusual pain or difficulty in swallowing (EGD Only). 2. Unusual abdominal or chest pain. 3. Coughing up blood (EGD Only). 4. Passing blood clots from the rectum. 5. Temperature above 100.6 degrees F (37.5 C), fever, or chills. 6. Shortness of breath. 7. Swelling or drainage from you IV site. OTHER SPECIFIC INSTRUCTIONS: none Source: [facility] POWERCHART Document Id: [id number] Gerhard Roman M.D. - 11/30/2013 9:55 AM CDT Hospital Discharge Medication List [address] [address] Discharge Medication List Name: KATHRYN LEON Current Date: 11/30/2013 09:55:53 : 1935 12:00 AM [facility] Number: [id number] Patient Address: [address] [place] [phone] Patient Primary Care Provider: Name: ALBANIA VARMA RN, EXTRACORPOREAL TECHNICIAN Discharge Diagnosis: [facility] in [place] would like to thank you for allowing us to assist you withyour healthcare needs. The following includes patient education materials and information regarding your injury/illness. Medications Medication/Strength How to Take Indications/Special Instructions/Comments/Notes for [...] 10 mcg, Vaginal, 2 times a week ferrous sulfate (ferrous sulfate 325 mg (65 mg elemental iron) oral tablet) 1 Tablet(s), Oral, once a day fexofenadine-pseudoephedrine (Rochelle-D 12 Hour 60 mg-120 mg oral tablet, extended release) 1 Tablet(s), Oral, two times a day [employer] [phone] fluticasone nasal (Flonase 0.05 mg/inh nasal spray) 2 Rea(s), Nostrils(Both), once a day gabapentin (gabapentin 300 mg oral capsule) 1 cap, Oral, three times a day ibuprofen (ibuprofen 600 mg oral tablet) See Instructions, as needed for Pain 1 tab(s) PO three times per day with food as needed methylcellulose (Citrucel Lax) 3 Tablet(s), Oral, once a day multivitamin (Multiple Vitamins oral tablet) 1 Tablet(s), Oral, once a day omeprazole (omeprazole 40 mg oral delayed release capsule) 1 cap, Oral, once a day Stop Taking the Following Medications: Medication list as of 11-30-13 09:55 Attention: If you have any medications at home that are not on this list, DO NOT take them until youcontact your provider for clarification. Give a copy of your medication list to your primary care provider. Update your medication list any time medications or doses are changed and carry your medication list at all times in case of emergency. Comment: Electronically Signed By: GERHARD ROMAN MD Signed On:30-NOV-2013 09:55:44 Source: [facility] POWERCHART Document Id: [id number] documented in this encounter Medications at Time [...] eye daily. documented as of this encounter Procedure Notes Libia Rodriguez RChelsey - 11/30/2013 8:10 AM CDT Preprocedure Checklist Document Has Been Updated Preprocedure Checklist Entered On: 11/30/2013 8:15 CDT Performed On: 11/30/2013 8:10 CDT by LIBIA RODRIGUEZ RN Checklist Last Fluid Intake : 11/29/2013 23:00 CDT Last Food Intake : 11/29/2013 19:00 CDT LIBIA RODRIGUEZ RN - 11/30/2013 8:10 CDT Surgery Prep Grid Contacts/Glasses Removed : Yes Dentures Removed : NA Hairpins/Hairpiecies Removed : NA Hearing Aid Removed : NA Home Prep Complete : Yes Jewelry/Piercing Removed : NA Makeup/Nail Argentine Removed : NA Oral Hygiene : NA Preop Scrub AM of Surgery : NA Preop Scrub Night Prior to Surgery : NA Prosthesis Removed : NA Surgical Prep Verified : Yes Tampon Removed : NA Wearing Patient Gown : Yes Voided corrections officer to procedure : Yes LIBIA RODRIGUEZ RN - 11/30/2013 8:10 CDT Surgical Preparation : N/A LIBIA RODRIGUEZ RN - 11/30/2013 8:10 CDT Patient Rights Grid Blood Consent Signed : NA Surgical/Procedure Consent Signed : Yes LIBIA RODRIGUEZ RN - 11/30/2013 8:10 CDT Family Location : at bedside LIBIA RODRIGUEZ RN - 11/30/2013 8:10 CDT Checklist II Patient Safety Grid Allergy Band on and Verified : Yes Anesthesia Consult : Yes Band on for Limb Alert : NA Blood Band on and Verified : NA Current ECG in Medical Record : Yes Current H&P in Medical Record : Yes Implants Verified : NA Medication Reconciliation on Chart : Yes Pacemaker/AICD Verified : NA ID Band on and Verified : Yes Preop Medications Sent With Patient : NA Relevant Images in Medical Record : Yes Review of Labs : NA Procedure/Site Verified by Patient/Family : Yes Procedure/Site Verified by RN : Yes Procedure/Site Verified by Physician : Yes Type & Screen/Type & Cross Completed : NA LIBIA RODRIGUEZ RN - 11/30/2013 8:10 CDT RN Who Verified Site : LIBIA RODRIGUEZ RN Physician Who Verified Site : GERHARD ROMAN MD, GWYNNE A RN - 11/30/2013 8:10 CDT KATHERINE Screening Known Obstructive Sleep Apnea : No - NOT diagnosed with KATHERINE LIBIA RODRIGUEZ RN - 11/30/2013 8:10 CDT KATHERINE Assessment Do you have high blood pressure or have you been told to take medication for high blood pressure? : No Frequency of Snoring : Sometimes (1-2 times per month) Frequency of Gasping, Choking, Snorting : Never Total Number of Historical Features : 0 Neck Circumference (cm) : 34/35 Total Sleep Apnea Clinical Score Calc : 1 LIBIA RODRIGUEZ RN - 11/30/2013 8:10 CDT Valuables/Belongings Valuables/Belongings Grid Valuables at Bedside Clothes, Patient Valuables : Jacket, Pants, Shirt, Shoes LIBIA RODRIGUEZ RN - 11/30/2013 8:10 CDT Room Orientation/Facility Policy Reviewed : Yes Home Medication Disposition : None brought in with patient LIBIA RODRIGUEZ RN - 11/30/2013 8:10 CDT Education Preprocedure Education Grid Procedure Type : upper endoscopy Education Topics : Anesthesia/Sedation, Plan of care Individuals Taught : Patient, Spouse Barriers to Learning : None evident Teaching Method : Explanation Teaching Evaluation : Verbalizes understanding RUCHIAlekROBINMYRA Naranjo RN - 11/30/2013 8:10 CDT Preop Holding Mode of Arrival : Ambulatory Preoperative Orders Complete : Yes LIBIA RODRIGUEZ Jose A LANG - 11/30/2013 8:10 CDT Advance Directive Advanced Directives : No Advance Directive Additional Information : Yes MAIFELYROBINMYRA Naranjo RN - 11/30/2013 8:10 CDT Vital Signs Temperature Core : 36.2 DegC(Converted to: 97.2 DegF) (LOW) Peripheral Pulse Rate : 78 /min Respiratory Rate : 16 /min Systolic Blood Pressure : 141 mmHg (HI) Diastolic Blood Pressure : 73 mmHg NIBP Mean : 96 mmHg SpO2 : 96 % Oxygen Saturation Monitoring Frequency : Intermittent Oxygen Therapy : Room air Height : 158.8 cm(Converted to: 5 ft 3 inch(es)) Actual Weight : 73.4 kg Actual Weight Conversion to Pounds : 161.48 lb Height Source : Estimated Body Mass Index : 29.11 kg/m2 LMJONATHAN LIBIADAQUAN Naranjo RN - 11/30/2013 8:10 CDT Allergy (As Of: 11/30/2013 08:15:44 CDT) Allergies (Active) Glutens Estimated Onset Date: Unspecified ; Created By: PATTI ALMENDAREZ LPN; Reaction Status: Active; Category: Drug ; Substance: Glutens ; Type: Allergy ; Updated By: PATTI ALMENDAREZ LPN; Reviewed Date: 11/16/2013 10:06 POT ROOM SUPERVISOR Nuts Estimated Onset Date: Unspecified ; Created By: PATTI ALMENDAREZ LPN; Reaction Status: Active ; Category: Food ; Substance: Nuts ; Type: Allergy ; Updated By: PATTI ALMENDAREZ LPN; Reviewed Date: 11/16/2013 10:06 POT ROOM SUPERVISOR Preprocedural Pause Correct Patient Identity : Patient verbalizes self, Patient wristband ID, Family/responsible libertarian ID, Patient verbalizes Correct Procedure Site and Side : upper endoscopy Correct Procedure Site/Side Verified By : Patient/responsible libertarian, Nurse, MD Site Marking : N/A Pre-Procedure Pause Verbal Confirm. of : Procedure, Site, Side, Patient Position, Patient ID LMJONATHAN LIBIAMYRA Naranjo RN - 11/30/2013 8:10 CDT Source: [employer] POWERCHART Document Id: [id number] CDT!97 Gerhard Roman M.D. - 11/30/2013 12:00 AM CDT HGIEGD PREOPERATIVE DIAGNOSIS: Dysphagia. POSTOPERATIVE DIAGNOSIS: Hiatal hernia and esophagitis. PROCEDURE PERFORMED: Upper endoscopy with biopsy and esophageal dilation. SURGEON Dr. Gerhard Roman. ANESTHESIA: MAC. TRACTOR MECHANIC: Matthew Moore. INDICATIONS: Ms. Leon is a 78-year female with hiatal hernia with symptomatic GERD and dysphagia who on CT scan appeared to have a large hiatal hernia and some thickening of the distal esophagus as well. Discussion was held with the patient regarding the details of the diagnosis and the risks, benefits, and alternatives to upper endoscopy with biopsy and possible dilation. She wished to proceed. DETAILS OF PROCEDURE: Patient was brought to endoscopy suite, placed in a left lateral cubitus position. A time out was then conducted. She was thereafter induced under deep sedation by the insulation blower. The video gastroscope was inserted and advanced through the esophagus into the stomach and from there into the duodenum. D-3 was reached. The scope was withdrawn slowly and circumferentially visualizing the mucosa on the way out. The scope was retroflexed to examine incisura and cardia. The scope wasstraightened, air was aspirated out of the stomach, scope was withdrawn to the esophagus, biopsies ob tained in the distal esophagus and separately of the mid esophagus. Scope was then removed and we dilated her esophagus using a 50-Kiswahili Norton esophageal bougie without difficulty and then went up to the 54-Kiswahili bougie also without difficulty. Procedure was then completed. Patient tolerated the procedure well. FINDINGS 1. Duodenum was normal as far as visualized. 2. Distal stomach was normal although there was some bile staining seen. 3. Large hiatal hernia visible both antegrade and retrograde. The GE junction appeared to be about 34 cm from the incisors and the diaphragmatic pinch about 43 cm from the incisors. 4. 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 IMPRESSION/REPORT/PLAN We will await the results of the biopsies before making formal recommendations and we await to see if she has any improvement from the dilation. Gerhard Roman M.D./tommy cc: Aakash Quiroga Electronically Signed By: GERHARD ROMAN MD On: 11/30/2013 10:41 AM Modified by and Electronically Signed by: GERHARD ROMAN MD On: 11/30/2013 10:41 AM Source: [facility] MHSDOLBEYNONRADSYS Document Id: [id number] documented in this encounter Nursing Notes Libia Rodriguez R.N. - 11/30/2013 8:17 AM CDT Influenza Immunization Asmt Influenza Immunization Asmt Entered On: 11/30/2013 8:17 CDT Performed On: 11/30/2013 8:17 CDT by LIBIA RODRIGUEZ RN Influenza Protocol Influenza Vaccine Exclusions : Previously immunized this flu season LIBIA RODRIGUEZ RN - 11/30/2013 8:17 CDT Source: [facility] POWERCHART Document Id: [id number] CDT!3 Libia Rodriguez R.N. - 11/30/2013 8:17 AM CDT Pneumonia Immunization Assessment Pneumonia Immunization Assessment Entered On: 11/30/2013 8:18 CDT Performed On: 11/30/2013 8:17 CDT by LIBIA RODRIGUEZ RN Pneumonia Protocol Pneumococcal Vaccine Exclusions : Patient has received the vaccine after age of 65 Pneumococcal Exclusion Candidate Status : No LIBIA RODRIGUEZ RN - 11/30/2013 8:17 CDT Source: [facility] POWERCHART Document Id: [id number] CDT!4 Libia Rodriguez R.N. - 11/30/2013 8:01 AM CDT Day Surgery Admission History/Asmt Adult Document Has Been Updated Day Surgery Admission History/Asmt Adult Entered On: 11/30/2013 8:10 CDT Performed On: 11/30/2013 8:01 CDT by LIBIA RODRIGUEZ RN General Info Preferred Name : Kathryn Admitted From : Non-Health Care Facility Point of Origin Mode of Arrival : Ambulatory Accompanied By : Spouse Chief Complaint : EGD Preferred Communication Mode : Verbal Information Given By : Patient Languages : Burmese Have you received chemotherapy in last 48 hours? : LIBIA Campbell RN - 11/30/2013 8:01 CDT Allergy (As Of: 11/30/2013 08:10:31 CDT) Allergies (Active) Glutens Estimated Onset Date: Unspecified ; Created By: PATTI ALMENDAREZ LPN; Reaction Status: Active; Category: Drug ; Substance: Glutens ; Type: Allergy ; Updated By: PATTI ALMENDAREZ LPN; Reviewed Date: 11/16/2013 10:06 POT ROOM SUPERVISOR Nuts Estimated Onset Date: Unspecified ; Created By: PATTI ALMENDAREZ LPN; Reaction Status: Active ; Category: Food ; Substance: Nuts ; Type: Allergy ; Updated By: PATTI ALMENDAREZ LPN; Reviewed Date: 11/16/2013 10:06 POT ROOM SUPERVISOR Anesth/Transfusion Anesthesia/Transfusions : Prior anesthesia LIBIA RODRIGUEZ RN - 11/30/2013 8:01 CDT ID Screen Drug Resistant Organism : LIBIA Campbell RN - 11/30/2013 8:01 CDT Nutrition Nutrition Risk Factors by History Adult : None Home Diet : Regular Feeding Ability : Complete independence Eating Difficulties : Swallowing Appetite : Good LIBIA RODRIGUEZ RN - 11/30/2013 8:01 CDT Home Environment Current Daily Living Assistance : None Living Situation : Home with family snf Equipment : None Sensory Deficits : None Mobility Assistance Prior to Admission : Independent Current Home Treatments : None Professional Skilled Services : None Special Services and Community Resources : None LIBIA RODRIGUEZ RN - 11/30/2013 8:01 CDT Dependent Habits Tobacco Use/Currently Using : No Exposure to Tobacco Smoke : Care provider denies smoking in home Smoking Status : Never smoker LIBIA RODRIGUEZ RN - 11/30/2013 8:01 CDT Tobacco Use Grid Last Use : never LIBIA RODRIGUEZ RN - 11/30/2013 8:01 CDT Caffeine Use Grid Caffeine Use : Current Type : Coffee Frequency : Weekly LIBIA RODRIGUEZ RN - 11/30/2013 8:01 CDT Recreational Drug Use Grid Drug Use : None LIBIA RODRIGUEZ RN - 11/30/2013 8:01 CDT Psychosocial Adult Domestic Abuse Concerns : None Orthodox Preference : Unknown LIBIA RODRIGUEZ RN - 11/30/2013 8:01 CDT Advance Directive Advanced Directives : No Advance Directive Additional Information : Yes LIBIA RODRIGUEZ RN - 11/30/2013 8:01 CDT Educ Needs Patient/Family Education Needs : Plan of care LIBIA RODRIGUEZ - 11/30/2013 8:01 CDT Learning Style Preference Adult Grid Patient : Verbal explanation Family : Verbal explanation LIBIA RODRIGUEZ RN - 11/30/2013 8:01 CDT Education Preprocedure Education Grid Procedure Type : EGD Education Topics : Anesthesia/Sedation, Plan of care Individuals Taught : Patient, Spouse Barriers to Learning : None evident Teaching Method : Explanation Teaching Evaluation : Verbalizes understanding LIBIA RODRIGUEZ RN - 11/30/2013 8:01 CDT Outpatient Assessment Procedural Respiratory : Respirations unlabored, Respiratory pattern regular, Breath sounds clear all lobes Procedural Cardiovascular : Heart rhythm regular, Skin color normal for ethnicity, Skin dry and warm Procedural Neurological : Alert, Oriented x 3, Gait steady Procedural Gastrointestinal : Abdomen non-tender and soft Procedural Genitourinary : Voiding, no difficulties Procedural Integumentary : Skin integrity intact Procedural Musculoskeletal : Activity tolerance without distress LIBIA RODRIGUEZ RN - 11/30/2013 8:01 CDT Psycho/Emotional Pain Symptoms : No Affect/Behavior : Calm, Cooperative, Appropriate LIBIA RODRIGUEZ RN - 11/30/2013 8:01 CDT Peripheral IV Peripheral IV Assess/Intervention Grid Peripheral IV #1 IV Activity : Start Number of Attempts : 1 Date of Insertion : 11/30/2013 CDT IV Site : Hand Laterality : Right Catheter Size : 20 Catheter Type : Protective Site Condition : No complications Drainage Description : None Infiltration Score : 0 Phlebitis Score : 0 Flow/ Patency : No complications LIBIA RODRIGUEZ RN - 11/30/2013 8:01 CDT Robel Sensory Perception Robel : No impairment Moisture Robel : Rarely moist Activity Robel : Walks frequently Mobility Robel : No limitations Nutrition Robel : Adequate Friction and Shear Robel : Potential problem Robel Score : 21 LIBIA RODRIGUEZ RN - 11/30/2013 8:01 CDT Hendrich II Fall Risk Confusion/Disorientation Hendrich : No Depression Fall Risk Hendrich : No Altered Elimination Fall Risk Hendrich : No Dizziness/Vertigo Fall Risk Hendrich : No Gender, Male Fall Risk Hendrich : No Prescribed Antiepileptics Hendrich : No Prescribed Benzodiazepines Hendrich : No Rising From Chair Fall Risk Hendrich : Pushes up, successful in one attempt Fall Risk Score Hendrich II : 1 LIBIA RODRIGUEZ RN - 11/30/2013 8:01 CDT DC Needs Anticipated Discharge Date : 11/30/2013 CDT Discharge To, Anticipated : Home with family snf Treatments, Anticipated : None Home Equipment, Anticipated : None Professional Skilled Services, Anticipated : None Special Serv & Comm Res, Anticipated : None Needs Assistance with Transportation : No Needs Assistance at Home Upon Discharge : No LIBIA RODRIGUEZ RN - 11/30/2013 8:01 CDT FLACC Face FLACC : No particular expression or smile Legs FLACC : Normal position or relaxed Activity FLACC : Lying quietly, normal position, moves easily Cry FLACC : No cry, awake or asleep Consolabillity FLACC : Content, relaxed FLACC Pain Scale Score : 0 LIBIA RODRIGUEZ RN - 11/30/2013 8:01 CDT Integumentary Integumentary Patient Stated Symptoms : None Skin Turgor : Elastic Skin Integrity : Intact Mucous Membrane Color : Cor[place] Mucous Membrane Description : Moist Skin Color : Normal for ethnicity Skin Description : Dry Skin Temperature : Warm LIBIA RODRIGUEZ RN - 11/30/2013 8:01 CDT [facility] Document Id: [id number] CDT!134 documented in this encounter Miscellaneous Notes Miscellaneous - Gerhard Roman M.D. - 12/04/2013 11:53 AM CDT Results Notification Document Contains Addenda Addendum by ALBANIA VARMA RN, CNP on 02 January 2014 11:44:11 CDT From: ALBANIA VARMA RN, CNP Sent: 01/02/2014 11:44:11 CDT Show up: 01/02/2014 11:41:00 CDT Subject: RE: Results Notification Addendum by ALBANIA VARMA RN, CNP on 02 January 2014 11:43:49 CDT From: ALBANIA VARMA RN, CNP Sent: 01/02/2014 11:43:49 CDT Show up: 01/02/2014 11:41:00 CDT Subject: RE: Results Notification Addendum by ALBANIA VARMA RN, CNP on 02 January 2014 11:43:39 CDT From: ALBANIA VARMA RN, CNP Sent: 01/02/2014 11:43:39 CDT Show up: 01/02/2014 11:41:00 CDT Subject: RE: Results Notification Addendum by ALBANIA VARMA RN, CNP on 02 January 2014 11:43:26 CDT From: ALBANIA VARMA RN, CNP Sent: 01/02/2014 11:43:26 CDT Show up: 01/02/2014 11:41:00 CDT Subject: RE: Results Notification Discussed recommendations from Dr Roman for hiatal hernia repair but patient wishes to wait. she does continue to have symptoms but if careful (small bites) it is better. She will continue to monitor. She also reports improvement with her legs with increased dose of gabapentin. Addendum by ALBANIA VARMA RN, CNP on 02 January 2014 11:43:49 CDT From: ALBANIA VARMA RN, CNP Sent: 01/02/2014 11:43:49 CDT Show up: 01/02/2014 11:41:00 CDT Subject: RE: Results Notification Addendum by ALBANIA VARMA RN, CNP on 02 January 2014 11:43:39 CDT From: ALBANIA VARMA RN, CNP Sent: 01/02/2014 11:43:39 CDT Show up: 01/02/2014 11:41:00 CDT Subject: RE: Results Notification Addendum by ALBANIA VARMA RN, CNP on 02 January 2014 11:43:26 CDT From: ALBANIA VARMA RN, CNP Sent: 01/02/2014 11:43:26 CDT Show up: 01/02/2014 11:41:00 CDT Subject: RE: Results Notification Discussed recommendations from Dr Roman for hiatal hernia repair but patient wishes to wait. she does continue to have symptoms but if careful (small bites) it is better. She will continue to monitor. She also reports improvement with her legs with increased dose of gabapentin. Addendum by ALBANIA VARMA RN, CNP on 02 January 2014 11:43:39 CDT From: ALBANIA VARMA RN, CNP Sent: 01/02/2014 11:43:39 CDT Show up: 01/02/2014 11:41:00 CDT Subject: RE: Results Notification Addendum by ALBANIA VARMA RN, CNP on 02 January 2014 11:43:26 CDT From: ALBANIA VARMA RN, CNP Sent: 01/02/2014 11:43:26 CDT Show up: 01/02/2014 11:41:00 CDT Subject: RE: Results Notification Discussed recommendations from Dr Roman for hiatal hernia repair but patient wishes to wait. she does continue to have symptoms but if careful (small bites) it is better. She will continue to monitor. She also reports improvement with her legs with increased dose of gabapentin. Addendum by ALBANIA VARMA RN, CNP on 02 January 2014 11:43:26 CDT From: ALBANIA VARMA RN, CNP Sent: 01/02/2014 11:43:26 CDT Show up: 01/02/2014 11:41:00 CDT Subject: RE: Results Notification Discussed recommendations from Dr Roman for hiatal hernia repair but patient wishes to wait. she does continue to have symptoms but if careful (small bites) it is better. She will continue to monitor. She also reports improvement with her legs with increased dose of gabapentin. Addendum by GERHARD ROMAN MD on 28 December 2013 08:47:47 CDT From: GERHARD ROMAN MD To: ALBANIA VARMA RN, CNP; Sent: 12/28/2013 08:47:47 CDT Show up: 12/28/2013 08:47:00 CDT Subject: RE: Results Notification If aggressive medical therpay does not help she should be referred for consideration of hiatal hernia repair / further workup Addendum by ALBANIA VARMA RN, CNP on 14 December 2013 09:47:08 CDT From: ALBANIA VARMA RN, EXTRACORPOREAL TECHNICIAN To: GERHARD ROMAN MD; Sent: 12/14/2013 09:47:08 CDT Show up: 12/14/2013 09:46:00 CDT Subject: RE: Results Notification she really has noted no difference since the dilation. Addendum by DEJAH BORDEN RN on 08 December 2013 13:54:49 CDT Tried to reach Kathryn by phone today regarding her EGD, will send letter out today. From: GERHARD ROMAN MD Sent: 12/04/2013 11:53:57 CDT ! Show up: 12/04/2013 11:53:57 CDT Subject: Results Notification Actions: Notify patient of results Reminder Comments: No Charles's, some sloughed esophageal mucosa, possibly medication related? F/U with primary care to assess response to dilation Results: Date Result Name Value 11/30/2013 09:05 Surg IV Accn-Olivier [id number] 11/30/2013 09:05 Surg IV Addr-Olivier See Comment 11/30/2013 09:05 Surg IV Cmt-Olivier See Comment 11/30/2013 09:05 Surg IV FnlDiag-Olivier See Comment 11/30/2013 09:05 Surg IV Ref-Olivier See Comment 11/30/2013 09:05 Surg IV SgnPath-Olivier See Comment 11/30/2013 09:05 Surg IV Ts Desc-Olivier See Comment Source: [facility] POWERCHART Document Id: [id number] Electronically signed by [facility]in [facility] Professor Of Archaeology [id number] at 02/10/2017 12:35 PM CDT Miscellaneous - Libia Rodriguez, RDannN. - 11/30/2013 9:36 AM CDT Adult Postprocedure Assessment Adult Postprocedure Assessment Entered On: 11/30/2013 9:51 CDT Performed On: 11/30/2013 9:36 CDT by LIBIA RODRIGUEZ RN Vital Signs Height : 158.8 cm(Converted to: 5 ft 3 inch(es)) Actual Weight Conversion to Pounds : 161.48 lb Body Mass Index : 29.11 kg/m2 LMBreanaMIRLANDEFELY LIBIA A 11/30/2013 9:36 CDT General Level of Consciousness : Alert Orientation : Oriented x 3 Skin Color : Normal for ethnicity Skin Description : Dry Skin Temperature : Warm Pain Symptoms : No LIBIA RODRIGUEZ 11/30/2013 9:36 CDT FLACC Face FLACC : No particular expression or smile Legs FLACC : Normal position or relaxed Activity FLACC : Lying quietly, normal position, moves easily Cry FLACC : No cry, awake or asleep Consolabillity FLACC : Content, relaxed FLACC Pain Scale Score : 0 LIBIA RODRIGUEZ 11/30/2013 9:36 CDT Respiratory Anesthesia Type : MAC Airway Type : None Respiratory Pattern : Regular Respirations : Unlabored All Lobes Breath Sounds : Clear LIBIA RODRIGUEZ 11/30/2013 9:36 CDT Breath Sounds Detailed Assessment Grid BUL : Clear BLL : Clear LIBIA RODRIGUEZ 11/30/2013 9:36 CDT GI/ Nausea Symptoms : No Nursing Interventions : Patient given oral fluids LIBIA RODRIGUEZ 11/30/2013 9:36 CDT Integumentary Integumentary Patient Stated Symptoms : None Skin Turgor : Elastic Skin Integrity : Intact Mucous Membrane Color : Corning Mucous Membrane Description : Moist Skin Color : Normal for ethnicity Skin Description : Dry Skin Temperature : Warm LIBIA RODRIGUEZ 11/30/2013 9:36 CDT Peripheral IV Peripheral IV Assess/Intervention Grid Peripheral IV #1 IV Activity : Discontinue Number of Attempts : 1 Date of Insertion : 11/30/2013 CDT IV Site : Hand Laterality : Right Catheter Size : 20 Catheter Type : Protective LIBIA RODRIGUEZ 11/30/2013 9:36 CDT PARSAP Activity Status : Moves 4 extremities voluntarily or on command Dressing : None Respiratory Component : Able to deep breathe and cough freely Pain : Pain free Circulation Component : BP 20% of preanesthetic level Ambulation : Able to stand up and walk straight Consciousness : Fully awake Fasting and Feeding : Able to drink fluids Oxygen Saturation - Sedation : Can maintain > 92% on room air Urine Output, PARSAP : Not assessed PARSAP Score : 20 LIBIA RODRIGUEZ RN - 11/30/2013 9:36 CDT Wall Wall Agitation Sedation Scale (RASS) : Alert and calm RASS Score : 0 LIBIA RODRGIUEZ RN - 11/30/2013 9:36 CDT Robel Sensory Perception Robel : No impairment Moisture Robel : Rarely moist Activity Robel : Walks frequently Mobility Robel : No limitations Nutrition Robel : Excellent Friction and Shear Robel : No apparent problem Robel Score : 23 LIBIA RODRIGUEZ RN - 11/30/2013 9:36 CDT Hendrich II Fall Risk Confusion/Disorientation Hendrich : No Depression Fall Risk Hendrich : No Altered Elimination Fall Risk Hendrich : No Dizziness/Vertigo Fall Risk Hendrich : No Gender, Male Fall Risk Hendrich : No Prescribed Antiepileptics Hendrich : No Prescribed Benzodiazepines Hendrich : No Rising From Chair Fall Risk Hendrich : Able to rise in a single movement, no loss of balance with steps Fall Risk Score Hendrich II : 0 LIBIA RODRIGUEZ RN - 11/30/2013 9:36 CDT Safe Patient Handling Safe Pt Handling Independent : Yes - No equipment needed Safe Pt Handling Equipment Rec : No Equipment Needed LIBIA RODRIGUEZ RN - 11/30/2013 9:36 CDT Education General Patient Education Powergrid Topics : Activity limitations/expectations, Diagnostic results, Patient rights and responsibilities,Patient's rights and responsibilities related to pain management, Physical limitations, Plan of care, Postoperative instructions, Printed materials, Turn/Cough/Deep breathing, Use of pain scale(s) Individuals Taught : Patient, Spouse Barriers to Learning : None evident Teaching Method : Explanation, Printed materials Teaching Evaluation : Verbalizes understanding LIBIA RODRIGUEZ RN - 11/30/2013 9:36 CDT [facility] POWER[facility]ART Document Id: [id number] CDT!94 Miscellaneous - Libia Rodriguez R.N. - 11/30/2013 9:21 AM CDT Adult Postprocedure Assessment Adult Postprocedure Assessment Entered On: 11/30/2013 9:26 CDT Performed On: 11/30/2013 9:21 CDT by LIBIA RODRIGUEZ RN Vital Signs Systolic Blood Pressure : 125 mmHg Diastolic Blood Pressure : 56 mmHg NIBP Mean : 79 mmHg BP Location : Right upper extremity SpO2 : 98 % Oxygen Flow Rate : 2 L/min Oxygen Therapy : Nasal Cannula Height : 158.8 cm(Converted to: 5 ft 3 inch(es)) Actual Weight Conversion to Pounds : 161.48 lb Body Mass Index : 29.11 kg/m2 LIBIA RODRIGUEZ RN - 11/30/2013 9:21 CDT General Level of Consciousness : Drowsy Orientation : Oriented x 3 Skin Color : Normal for ethnicity Skin Description : Dry Skin Temperature : Warm Pain Symptoms : No LIBIA RODRIGUEZ RN - 11/30/2013 9:21 CDT FLACC Face FLACC : No particular expression or smile Legs FLACC : Normal position or relaxed Activity FLACC : Lying quietly, normal position, moves easily Cry FLACC : No cry, awake or asleep Consolabillity FLACC : Content, relaxed FLACC Pain Scale Score : 0 LIBIA RODRIGUEZ RN - 11/30/2013 9:21 CDT Respiratory Anesthesia Type : MAC Airway Type : None Respiratory Pattern : Regular Respirations : Unlabored All Lobes Breath Sounds : Clear LIBIA RODRIGUEZ RN - 11/30/2013 9:21 CDT Breath Sounds Detailed Assessment Grid BUL : Clear BLL : Clear LIBIA RODRIGUEZ RN 11/30/2013 9:21 CDT GI/ Nausea Symptoms : No LIBIA RODRIGUEZ RN 11/30/2013 9:21 CDT Integumentary Integumentary Patient Stated Symptoms : None Skin Turgor : Elastic Skin Integrity : Intact Mucous Membrane Color : [place] Mucous Membrane Description : Moist LIBIA RODRIGUEZ 11/30/2013 9:21 CDT Peripheral IV Peripheral IV Assess/Intervention Grid Peripheral IV #1 IV Activity : Discontinue Number of Attempts : 1 Date of Insertion : 11/30/2013 CDT IV Site : Hand Laterality : Right Catheter Size : 20 Catheter Type : Protective LIBIA RODRIGUEZ RN - 11/30/2013 9:21 CDT I&O Other Intake : 700 mL LIBIA RODRIGUEZ 11/30/2013 9:21 CDT Activity Patient Position : Elevate head of bed 30 degrees LIBIA RODRIGUEZ - 11/30/2013 9:21 CDT Modified Debra Activity : Moves 4 extremities voluntarily or on command Respiratory : Able to deep breathe and cough freely Circulation : BP +/- 20% of preprocedural level or not unusually high or low Consciousness : Fully awake O2 Saturation : Needs oxygen to maintain > 92% Debra l Score : 9 LIBIA RODRIGUEZ - 11/30/2013 9:21 CDT Wall Wall Agitation Sedation Scale (RASS) : Alert and calm RASS Score : 0 LIBIA RODRIGUEZ 11/30/2013 9:21 CDT Robel Sensory Perception Robel : Completely limited Moisture Robel : Constantly moist Activity Robel : Bedfast Mobility Robel : Completely limited Nutrition Robel : Very poor Friction and Shear Robel : Problem Robel Score : 6 LIBIA RODRIGUEZ RN - 11/30/2013 9:21 CDT Hendrich II Fall Risk Confusion/Disorientation Hendrich : Yes Depression Fall Risk Hendrich : No Altered Elimination Fall Risk Hendrich : Yes Dizziness/Vertigo Fall Risk Hendrich : No Gender, Male Fall Risk Hendrich : No Prescribed Antiepileptics Hendrich : No Prescribed Benzodiazepines Hendrich : Yes Rising From Chair Fall Risk Hendrich : Able to rise in a single movement, no loss of balance with steps Fall Risk Score Hendrich II : 6 LIBIA RODRIGUEZ RN - 11/30/2013 9:21 CDT Safe Patient Handling Safe Pt Handling Independent : Yes - No equipment needed Safe Pt Handling Equipment Rec : Lateral Transfers Only LIBIA RODRIGUEZ RN - 11/30/2013 9:21 CDT Source: [facility] POWERCHART Document Id: [id number] CDT!88 documented in this encounter Plan of Treatment Not on filedocumented as of this encounter Procedures Procedure Name Priority Date/Time Associated Diagnosis Comme nts SURGICAL PATHOLOGY Routine 11/30/2013 9:05 AM Res ults for this CDT procedure are i n the results section. documented in this encounter Results Pathology Anatpath Wet Tissue (11/30/2013 9:05 AM CDT) [facility] Method Time Signature HXSurg IV [id number] POWERCHART [facility] HXSurg IV See Comment POWERCHART Ref-Hubbard Comment: RESULT: Gerhard Roman M.D. HXSurg IV [facility] See Comment POWERCHA RT Comment: [address] [address] SLIDE DISPOSITION: HXSurg IV [facility] See Comment POWER CHART Comment: [id number] A. ??Received in formalin labeled with t he patient's name and medical record number as [id number] and GE junction biopsy are multiple pale rudd-translucent irregular soft tissue fragments, ranging from minute to 0.7 cm in greates t dimension. Due to the scant nature of some or all of the speci mens, they may not survive processing. Specimens are submitted en t krista in cassette A1. B. ??Received in formalin labeled with t he patient's name and medical record number as [id number] and mid eso phagus are five pale rudd-translucent irregular soft tissue fr agments, ranging from 0.3-0.7 cm in greatest dimension. Specim ens are submitted en toto in cassette B1. Part A: ??GE junction 1 GE junction Part B: ??Esophagus Biopsy; mid esophagu s 1 Esophagus Biopsy; mid esopha XRSR Path HXSurg IV [facility] See Comment POWER CHART Comment: A) ??Gastroesophageal junction, biopsy: ??Squamous mucosa with areas of surface epithelial sloughing. ??No si gnificant inflammatory infiltrate. ??Small portions of columnar epithelium without diagnostic abnormality. ??No specialized Charles's mucosa. B) ??Esophagus, biopsy: ??Strips of daniela gn squamous mucosa with surface epithelial sloughing with no sig nificant inflammation. ??No specialized Charles's mucosa. See comment. Participated in interpretation: ??MENDEZ Penaloza [phone]. HXSurg IV [facility] See Comment POWERCHAR T Comment: The above findings are not specific but may be seen in the setting of medication-induced injury, other form s of chemical injury, and in esophagitis dissecans superficialis. ??C orrelation with clinical and endoscopic findings is required. [facility] See Comment POWER CHART Comment: RESULT: 12/02/2013 15:26 Interpreted by: Major Pederson M.D. Report electronically signed by Major Pederson M.D. Transcribed by: [email or web address] 12/02/2013 10:14:45 Test Performed by: [place] [address] Cable Television Technician: Scot ybarra III, M.D. Specimen (Source) Anatomical Collection Method Collection Time Re ceived Time Location / / Volume Laterality Tissue 11/30/2013 9:05 AM CDT Gerhard Roman M.D. LAB SURG PATH ORDERABLES Performing Organization Address City/State/ZIP Code Phon e Number POWERCHART documented in this encounter Visit Diagnoses Not on filedocumented in this encounter
--- OUTSIDE RECORDS SUMMARY | 2022-05-06 13:12 | XMS_ITS | Encounter Summary ---
:1935 Author Organization [facility] Address [address] [place] [id number] Care Team Providers Name Role Phone Unavailable Primary Care Provider Unavailable Encounter Details Date Type Department Care Team Description 05/15/2013 - Hospital Encounter HX [facility] MATTEO Rodriguez Con 05/18/2013 INPT/OBSRV [place] [address] [id number] Social History Tobacco Use Types Packs/Day Years Used Date Smoking Tobacco: Never Assessed Sex Assigned at Date Recorded Not on file documented as of this encounter Last Filed Vital Signs Vital Sign Reading Time Taken Comments Blood Pressure 107/53 05/18/2013 11:21 AM CDT Pulse 72 05/18/2013 11:21 AM CDT Temperature - - Respiratory Rate 12 05/18/2013 11:21 AM CDT Oxygen Saturation - - Inhaled Oxygen Concentration - - Weight 78 kg (171 lb 15.3 oz) 05/15/2013 8:35 PM CDT Height 163 cm (5' 4.17) 05/15/2013 8:35 PM CDT Body Mass Index 29.36 05/15/2013 8:35 PM CDT documented in this encounter Discharge Summaries Yeimy Lang R.N. - 05/18/2013 4:24 PM CDT Inpatient Discharge Instructions [facility] [address] [place] [address] Patient Discharge Instructions Name: KATHRYN LEON Current Date: 05/18/2013 16:24:34 : 1935 12:00 AM [facility] Number: [id number] Patient Address: [address] [place] [address] [place] [phone] Patient Primary Care Provider: Name: ALBANIA VARMA RN, [employer]ARD[employer] W[employer]E MANAGEMENT SPECIALIST Discharge Diagnosis: Closed fracture of rib NOS [facility] in [place] would like to thank you for allowing us to assist you withyour healthcare needs. The following includes patient education materials and information regarding your injury/illness. Comment: KATHRYN LEON has been given the following list of follow-up instructions, medication list, and patient education materials: Follow-up Instructions With: Address: When: ANISHA VILLA[address] [place] [address] Business (1) 05/24/2013 09:45:00 Comments: 9:45 check in time for 10am follow up appointment Medications Medication/Strength Dose Route Frequency Indications/Special Instructions/Comments/Notes oxyCODONE [...] (Restasis) one drop Eyes(Both) every 12 hours *ferrous gluconate (ferrous gluconate) Oral two times a day *aspirin (aspirin 81 mg oral tablet) 1 tab(s) [...] them until youcontact your provider for clarification. Comment: Electronically Signed By: JORDI WILSON MD Signed On:18-MAY-2013 14:10:49 Your Upcoming Appointments Date Time Location Reason Provider 05/24/2013 09:45 [facility] Family Med FU ON HOSP. PAIN MGMT Daisy NOLAN, CAROLYN Escobar MARY CATHERINE , have received the attached patient education materials/instructions and have verbalized understanding: Patient Signature Date Time Care Provider Signature Date Time [id number] RIB FRACTURE You have a fracture (break) of one or more ribs. Rib fractures do not require a cast like other bones. They will heal by themselves in about 4-6 weeks. The first 3-4 weeks will be the most painful because deep breathing, coughing or changing position from sitting to lying down, may cause the broken ends to move slightly. HOME CARE: ?? Rest. You should not be doing any heavy lifting or strenuous exertion until the pain goes away. ?? Because it hurts to breathe when you have a broken rib, there is risk of getting pneumonia from poor airflow through your lungs. To prevent this: o Take four very deep breaths at least four times a day (exhale through pursed lips as if you are blowing up a balloon). o If an incentive spirometer (breathing exercise device) was given to you, use it at least four times a day, or as directed. ?? Apply an ice pack (ice cubes in a plastic bag, wrapped in a towel) over the injured area for 20 minutes every 1-2 hours the first day. Continue with ice packs 3-4 times a day for the next two days, then as needed for the relief of pain and swelling. ?? You may use acetaminophen (Tylenol) or ibuprofen (Motrin, Advil) to control pain, unless another pain medicine was prescribed. [NOTE: If you have chronic liver or kidney disease or ever had a stomach ulcer or GI bleeding, talk with your doctor before using these medicines.] ?? If your pain is not controlled by the treatment given, contact your doctor. Sometimes a stronger pain medicine may be needed. A nerve block (numbing the nerve between the ribs) can be performed in case of severe pain. FOLLOW UP with your doctor during the next week, or as advised. Rarely, a broken rib will cause complications within the first few days that may not be evident during your initial exam (such as, collapsed lung, bleeding around the lung or into the abdomen, or pneumonia). Therefore, watch for the signsbelow. [NOTE: If x-rays were taken, they will be reviewed by a radiologist. You will be notified of any newfindings that may affect your care.] GET PROMPT MEDICAL ATTENTION if any of the following occur: ?? Shortness of breath ?? Increasing chest pain with breathing ?? Dizziness, weakness or fainting ?? New or worsening abdominal pain ?? Fever of 100.4??F (38??C) or higher, or as directed by your healthcare provider Congested cough ?? [id number] Jannet Varela, [address] [place] [address], [place] [address]. All rights reserved. This information is not intended as a substitute for professional medical care. Always follow your healthcare professional's instructions. This document has images extracted. Please consider using [employer] for all your patient education needs. Source: [facility] POWERCHART Document Id: [id number] Yeimy Lang R.N. - 05/18/2013 4:24 PM CDT Discharge Medication List [address] [address] Discharge Medication List Name: KATHRYN LEON Current Date: 05/18/2013 16:24:31 : 1935 12:00 AM [facility] Number: [id number] Patient Address: [address] [place] [phone] Patient Primary Care Provider: Name: ALBANIA VARMA RN, [facility] Discharge Diagnosis: Closed fracture of rib NOS [facility] in [place] would like to thank you for allowing us to assist you withyour healthcare needs. The following includes patient education materials and information regarding your injury/illness. Medications Medication/Strength Dose Route Frequency Indications/Special Instructions/Comments/Notes oxyCODONE [...] (Restasis) one drop Eyes(Both) every 12 hours *ferrous gluconate (ferrous gluconate) Oral two times a day *aspirin (aspirin 81 mg oral tablet) 1 tab(s) [...] them until youcontact your provider for clarification. Comment: Electronically Signed By: JORDI WILSON MD Signed On:18-MAY-2013 14:10:49 Source: [facility] POWERCHART Document Id: [id number] Yeimy Lang, R.N. - 05/18/2013 4:16 PM CDT Discharge Summary Discharge Summary Entered On: 05/18/2013 16:17 CDT Performed On: 05/18/2013 16:16 CDT by YEIMY LANG RN [place] Information Discharged to : Home with family care Mode of Discharge : Ambulatory, Wheelchair Discharge Transportation : Private vehicle Accompanied By : Family Transfer forms sent with : pt Date/Time of Discharge : 05/18/2013 15:15 CDT YEIMY LANG RN - 05/18/2013 16:16 CDT Education General Patient Education [employer] Topics : Discharge instructions/Medication list Individuals Taught : Patient, Spouse Barriers to Learning : None evident Teaching Method : Explanation, Printed materials Teaching Evaluation : Verbalizes understanding YEIMY LANG RN - 05/18/2013 16:16 CDT Source: [facility] [employer] Document Id: [id number] CDT!16 Jordi Wilson M.D. - 05/18/2013 2:30 PM CDT [id number] ADMIT DATE: 05/15/2013 DISCHARGE DATE: 05/18/2013 14:30 ADMISSION DIAGNOSIS 1. Multiple contusions secondary to fall. 2. Left-sided rib cage pain, back pain, and left-sided hip pain. 3. Left eighth rib fracture secondary to fall. 4. Severe pain related to multiple contusion. DISCHARGE DIAGNOSIS 1. Multiple contusions secondary to fall. 2. Left-sided rib cage pain, back pain, and left-sided hip pain. 3. Left eighth rib fracture secondary to fall. 4. Severe pain related to multiple contusion. 5. Difficulty with ambulation secondary to pain from multiple contusions including left hip, back contusion and left eighth rib fracture. BRIEF HISTORY Patient is a 78-year-old female presented initially to the Emergency Room. Patient had a fall in a motel in [place] when she was planning to attend her granddaughter's graduation from [employer]. The incidents happened on May 12. She was unable to attend the graduation ceremony. She was seen at the local Emergency Room after the fall and had multiple x-rays done; was sent home on [facility] and at that time patient decided to come back to her hometown in [place]. She was driven by her in the backseat of her car. She was taking pain medications. She had a difficult ride back home secondary to severe pain with any movements. Most of the time she laid on the backseat of the car. Patient's drove straight to [place] [facility] once they arrived back in [place] and at that time she was complaining of left-sided chest pain, hip pain and lumbar area pain. She was diagnosed with left 8th rib fracture after x-rays were taken in the Emergency Room at [facility]. She had a difficult time transferring, ambulating, severe pain. Patient required more pain management than what she was on with oral medications. At that time a decision was made by Dr. Villagomez to admit the patient for observation and pain management. Multi-modality treatment forpain was recommended. PAST MEDICAL/SURGICAL HISTORY MEDICAL - Patient has a history of: 1. Underlying radiculopathy for lumbar disc disease. 2. Glaucoma. 3. Allergic rhinitis. 4. Rheumatoid arthritis. 5. Osteopenia. 6. Cataracts. 7. Celica disease. 8. Bursitis. 9. Atrophic vaginitis. SURGICAL 1. Hemorrhoidectomy. 2. Hysterectomy. 3. Reduction mammoplasty. 4. Cystocele repair. 5. Cataract removal. 6. Laminectomy in 2008 at the age of 74. 7. Diagnostic colonoscopy in 2010. SIGNIFICANT FINDINGS 1. Her chest x-ray showed acute left 8th rib fracture without any signs of pneumothorax. Minimal atelectasis and fibrosis of the left lung is also noticed. 2. Her x-ray of the hip was negative for any fractures. The patient continued to have a significant amount of pain in the left hip and sacral area, significant amount of sacral tenderness, local hematoma, difficulty with ambulation, severe pain with weightbearing. At that time a decision was made to also do a Pelvic CT Scan, that was also negative for any acute fractures. X-Ray of the lumbar spine did not show any signs of acute fractures. Probable Pars defect was noticed bilaterally at the level ofL-4. No acute fractures or malalignment noticed on the x-rays. X-ray of the shoulder was negative for fracture. 3. Her lab data shows hemoglobin of 12.6. Sodium slightly low at 128. The rest of her lab work was within normal range. HOSPITAL COURSE Patient was admitted for pain management. Patient continued to have I.V. pain medications were used.Multi-modality treatment was started. Patient was also given Percocet. Patient had poor pain controlon the second day of admission. An oral OxyContin was also started. I increased the dose of Gabapentin prior to discharge. Patient was treated with anti-inflammatories. Treatment for neuropathic pain, Tylenol, and on top of that patient is given Oxycodone by mouth. The day prior to discharge patient was also started on OxyContin for better pain control. Prior to discharge patient was evaluated by physical therapy. Patient had a difficult time initially getting out of bed. Every movement of the chest and body was quite painful, especially in the left chest area and also the left hip area. Patient was ambulated with the help of physical therapy. Patient took a walk in the hallway. Started tolerating pain better with multi-modality pain treatment. Patient was discharged back home along with in a stable condition. PHYSICAL EXAMINATION Prior to discharge: VITAL SIGNS: Reviewed. HEAD, NECK, EYE, ENT EXAM: Is unremarkable. MUSCULOSKELETAL: Tenderness in the left lower rib cage area. CHEST: Is clear. CVS: Normal S-1, S-2. ABDOMEN: Is soft, nontender. HIPS: Range of motion of the hips is full range with moderate amount of tenderness in the left sacral and left hip area. NEUROLOGICAL EXAM: Cranial nerves are intact. SENSORY/MOTOR EXAM: Is unremarkable. DISCHARGE MEDIATIONS Are as follows: 1. Oxycodone 5 to 10 mg every 4-hours as needed for pain. 2. Acetaminophen 650 mg 3-times a day. 3. MiraLAX, 17 grams daily while she is taking her narcotics. 4. Oxycodone ER, 10 mg twice a day. 5. Gabapentin 300 mg in the morning, 300 mg at noon & 900 mg at night. 6. Ibuprofen 600 mg 3-times a day with food. 7. Vagifem 10 mcg vaginal tablets, 2-times a week. 8. Gabapentin 900 mg once a day. 9. Flonase nasal spray 2-sprays in each nostril once a day. 10. Rochelle D, 1-tablet 2-times a day. 11. Omeprazole 40 mg once a day. 12. Citracal once a day. 13. Restasis 1-drop both eyes every 12-hours. 14. Ferrous Gluconate 2-times a day. 15. Aspirin 81 mg daily. 16. Vitamin B-12, 1000 mcg daily. 17. Multivitamins daily. 18. Cosopt ophthalmic drops, 1-drop daily as previously prescribed. FOLLOW-UP INSTRUCTIONS Patient will follow with [place] Varma N.P. or Dr. Anisha Villa in 5 to 7-days for further evaluation of pain. Patient should consider a repeat basic metabolic profile on next visit as she has mild hyponatremia at the time of admission. DISCHARGE INSTRUCTIONS The rest of the management will be done on an outpatient basis. Jordi Wilson M.D./tommy Electronically Signed By: JORDI WILSON MD On: 05/18/2013 03:51 PM Modified by and Electronically Signed by: JORDI WILSON MD On: 05/18/2013 03:51 PM Source: [facility] MHSDOLBEYNONRADSYS Document Id: [id number] documented in this encounter Medications at Time [...] documented as of this encounter Progress Notes Yeimy Lang, RDannN. - 05/18/2013 4:19 PM CDT discharge note pt discharged to home with . pt was able to void prior to leaving bladder scan done and not retatining urine after magallanes pulled. Pt was a little drowsy and she said that she knows it's the painmedication. We talked in lenght about pain control and sedation side effects with narc. pt and know about IS use and continue using at home. we talked about fall risk and what to much can do toyou. Pt aware and we talked about labeling pill bottles so they dont get mixed up up long acting andshort acting. Pt understood. she understands and so does follow up appointments. Electronically Signed By: YEIMY LANG RN On: 05/18/2013 04:24 PM Source: [facility] POWERCHART Document Id: [id number] Shon Tillman P.T. - 05/18/2013 1:45 PM CDT Physical Therapy Discharge Physical Therapy Discharge Entered On: 05/18/2013 13:54 CDT Performed On: 05/18/2013 13:45 CDT by SHON TILLMAN DPT Goals Review PT Goals : Bed Mobility Goal: Standby assistance Time Frame to Reach Bed Mobility Goal: 1 day(s) Bed Mobility Goal Status: Transfer Goal: Standby assistance Transfer Device: Front wheeled walker Time Frame to Reach Transfer Goal : 1 day(s) Transfer Goal Status: Ambulation Goal: Standby assistance Ambulation Device: Front wheeled walker Ambulation Distance: 30 m Time Frame to Reach Ambulation Goal: 1 day(s) Ambulation Goal Status: Stairs Goal: Stairs Device: Number of Stairs/Flights: Time Frame to Reach Stair Goal: Stairs Goal Status: Additional Goal1: Time Frame to Reach Additional Goal: Additional Goal Status1: Additional Goal2: Time Frame to Reach Additional Goal: Additional Goal Status2: Performed by: SHON TILLMAN DPT-05/17/13 11:45:00 PT Goals Reviewed : Goals reviewed and unchanged SHON TILLMAN DPT - 05/18/2013 13:45 CDT Plan Review PT Plan : Therapy Frequency: Daily Therapy Duration: One day Planned Treatments Gait training, Hot/cold packets, Therapeutic activities, Therapeutic exercise Performed by: SHON TILLMAN DPT-05/17/13 11:45:00 PT Plan Reviewed : Plan updated PT Clinical Summary : Pt was admitted for observation. She was unable to fully meet physical therapygoals due to limitations of pain and grogginess. She continued to require min A for bed mobility, CGA for ambulation, stairs with B rails and transfers. Pt's level of function did improve, however she is still limited compared to PLOF. Pt was educated to continue using 2WW at home for safety until strength improves. She remains a fall risk due to decreased level of function. She will be discharging home with the assist of her . Pt was educated to talk to her doctor if low back/hip pain persists without relief. PT Frequency : Discontinue PT Plan/Goals Established w Pt/Caregiver : Yes SHON TILLMAN [facility] - 05/18/2013 13:45 CDT General Info Reason for Referral to Physical Therapy : Decreased balance, Decreased endurance, Decreased mobility, Decreased safety, Fall history, Pain Physical Therapy Orders : No active Physical Therapy Orders. Precautions to Rehabilitation Treatment : Fall risk L 8th rib fracture Pain Symptoms : Yes Orientation : Oriented x 3 Safety/Judgment : Intact Basic Command Following : Intact SHON TILLMAN [facility] - 05/18/2013 13:45 CDT Pain Pain Assessment Grid Pain 1 Location : Lower back Laterality : Left SHON TILLMAN Lee [facility] - 05/18/2013 13:45 CDT Treatment Therapeutic Activities/Exercise Provided : Yes SHON TILLMAN Lee [facility] - 05/18/2013 13:55 CDT Mobility/Balance Training Provided : Yes PT Treatment Patient Response : Pt continued to complain of low back/hip pain in session. Some dizziness noted with sit<>stand. Tolerated activity with rest breaks. PT Total Treatment Time : 30 minute(s) SHON TILLMAN [facility] - 05/18/2013 13:45 CDT Treatment Assessment : Pt was in bed prior to session. Required min A-CGA for bed mobility. Pt did have a small BM in the bed, nurse was called to assist in clean up. Pt ambulated 3 bouts, seated rest breaks between, limited by pain and fatigue. Pt performed stairs and tolerated well. Pt returned to room, CLOUD SYSTEMS ARCHITECT notified pt wished to have shower before discharge. SHON TILLMAN Lee [facility] - 05/18/2013 13:55 CDT Mobility/Balance PT Standing Balance Training : standing at EOB, required 2WW for support, about 1 minute. SHON TILLMAN Lee [facility] - 05/18/2013 13:45 CDT Mobility Grid Supine to Sit : Minimal assist Sit to Supine : Minimal assist Scooting : Minimal assist Sit to Stand : Contact guard Stand to Sit : Contact guard Bed to/from Chair : Minimal assist SHON TILLMAN Lee T - 05/18/2013 13:45 CDT Ambulation Quality : Amb. 30 ft, 50 ft, 30 ft, 2WW, CGA, slow pace, antalgic gait pattern. Stairs Ambulation Assist : Contact guard assistance Number of Stairs : 4 Stair Railing Utilized : Bilateral SHON TILLMAN DPT - 05/18/2013 13:45 CDT Ther Activities/Exercise Therapeutic Exercises Performed : General strengthening exercises Therapeutic Activities Performed : Sit<>stand x 5 reps from low bed. SHON TILLMAN DPT - 05/18/2013 13:55 CDT Musculoskeletal PT Range of Motion Grid Left Upper Extremity : Active Within Normal Limits, Passive Within Normal Limits Right Upper Extremity : Passive Within Normal Limits, Active Within Normal Limits Left Lower Extremity : Passive Within Normal Limits, Active Within Normal Limits Right Lower Extremity : Passive Within Normal Limits, Active Within Normal Limits SHON TILLMAN Lee DPT - 05/18/2013 13:45 CDT Left Upper Extremity Strength : Other: WFL Right Upper Extremity Strength : Other: WFL Left Lower Extremity Strength : Other: WFL Right Lower Extremity Strength : Other: WFL ANNIEKM IRAHETAROSITA Howard DPT - 05/18/2013 13:45 CDT Neuro Muscle Tone : Normal ANNIEMONICA IRAHETAJose A Howard DPT - 05/18/2013 13:45 CDT DC Recommendations Discharge To, Anticipated : Home with family longterm Equipment, Anticipated : Walker Walker Specifics : Front wheeled walker SHON TILLMAN Lee DPT - 05/18/2013 13:45 CDT PT Charge Registration Status - PT : Inpatient: Observation Medicare Status - PT : Medicare Primary or Secondary KX Modifier Required - PT : No PT Certification Date Start : 05/17/2013 CDT PT Certification Date End : 05/18/2013 CDT Visit Requires [facility] Reporting - PT : Discharge: Report Goal Status and Discharge Status PT Number of Patient Visits : 1 PT Visit, Inpatient : Yes Therapeutic Exercise Minutes : 10 minute(s) Therapeutic Exercise Charges : 1 units Gait Training Minutes : 20 minute(s) Gait Training Charges : 1 units SHON TILLMAN Lee DPT - 05/18/2013 13:45 CDT Modifiers Mobility Current Status : Not Applicable for the selected CMS Reporting Mobility Goal Status : CI At least 1% but less than 20% Impaired, Limited or Restricted Mobility Discharge Status : CJ At least 20% but less than 40% Impaired, Limited or Restricted ANNIEMYRTLEKMSHON M DPT - 05/18/2013 13:55 CDT Functional Limitation Category : Mobility: Walking & Moving Around Functional Limitation KM TILLMANROSITA Howard DPT - 05/18/2013 13:45 CDT Severity Code Determined By : Clinical Judgement and objective measures. SHON TILLMAN DPT - 05/18/2013 13:55 CDT [facility] Document Id: [id number] CDT!80 Umu Coker O.Marleni - 05/18/2013 1:40 PM CDT OT Discharge OT Discharge Entered On: 05/18/2013 13:51 CDT Performed On: 05/18/2013 13:40 CDT by UMU BROWN Goals Review OT Goals : Activity: Lower extremity dressing Assist Level: Modified independence Device/Equipment: Mechanic Assistant, Sock aid Level: Time Frame to Reach Goal(days): 2 Goal Status: Goals Comment: Pt. will increase activity tolerance to sit EOB to complete LE dressing using A/E prnwith Mod. I. Performed by: UMU BROWN-05/17/13 10:20:00 Activity: Hygiene/grooming Assist Level: Modified independence Device/Equipment: Other: fww Level: Time Frame to Reach Goal(days): 2 Goal Status: Goals Comment: Pt. will increase standing tolerance to stand at sink for 3:00 to complete grooming using Fww for support. Performed by: UMU BROWN-05/17/13 10:20:00 Activity: Transfers Assist Level: Modified independence Device/Equipment: Other: fww Level: Time Frame to Reach Goal(days): 2 Goal Status: Goals Comment: Pt. will increase activity tolerance to complete bed and toilet transfers using Fww prn with Mod. I. and pain less than 5/10. Performed by: UMU BROWN-05/17/13 10:20:00 OT Goals Reviewed : Goals updated OT Discharge Status : Pt's pain levels have decreased to 6/10, increasing Pt's ability to participate and complete ADL activities. Pt. remains fatigued wtih activities. UMU BROWN - 05/18/2013 13:40 CDT Goals OT Goal Grid Activity : Lower extremity dressing Hygiene/grooming Transfers Assist Level : Modified independence Modified independence Modified independence Device/Equipment : Mechanic Assistant, Sock aid Other: fww Other: fww Time Frame to Reach Goal (days) : 2 day(s) 2 day(s) 2 day(s) Comments (Comment: Goal met: Pt. dressed with Indep. [UMU BROWN 05/18/2013 13:40 CDT] ) (Comment: Goal addressed with nursing staff. [UMU BROWN 05/18/2013 13:40 CDT] ) (Comment: Goal met: Pt. is Mod. I. with toilet and bed transfer. [UMU BROWN 05/18/2013 13:40 CDT] ) UMU BROWN 05/18/2013 13:40 CDT UMU BROWN 05/18/2013 13:40 CDT UMU BROWN 05/18/2013 13:40 CDT General Info Reason for Referral to OT : General weakness Pain Symptoms : Yes Weight Bearing : Full weight bearing General Mode of Communication : Verbal Precautions to Rehabilitation Treatment : Fall risk L 8th rib fracture UMU BROWN 05/18/2013 13:40 CDT Pain Pain Assessment Grid Pain 1 Location : Hip Laterality : Left Intensity : 6 UMU BROWN 05/18/2013 13:40 CDT Treatment OT ADL Training Provided : Yes OT Functional Mobility Provided : Yes OT Total Treatment Time : 10 minute(s) OT Treatment Response : Pt. responded well to treatment, and feels she will be able to complete ADL activities upon return home with assistance as needed from her spouse. UMU BROWN 05/18/2013 13:40 CDT ADL Basic Activities of Daily Living Grid Upper Extremity Dressing Lower Extremity Dressing Assist Level : Independent Independent [facility]MU BROWN 05/18/2013 13:40 CDT [facility] BROWN 05/18/2013 13:40 CDT Functional Mobility OT Functional Mobility Grid OT Bed Mobility OT Sit to Stand OT Toilet Transfers Assist Level : Modified independent Modified independent (Comment: Pt. completed sit to stand with fww and Mod. I. [[facility] BROWN 05/18/2013 13:40 CDT] ) Modified independent UMU BROWN 05/18/2013 13:40 CDT UMU BROWN - 05/18/2013 13:40 CDT ISAURO BROWNYARITZA Sage - 05/18/2013 13:40 CDT OT Charge Registration Status - OT : Inpatient: Observation Medicare Status - OT : Medicare Primary or Secondary KX Modifier Required - OT : Yes Visit Requires [facility] Reporting - OT : Discharge: Report Goal Status and Discharge Status OT Number of Patient Visits : 1 OT Visit, Inpatient : Yes OT Self Care/Home Management Minutes : 10 minute(s) OT Self Care/Home Management Charges : 1 units ISAURO BROWNYARITZA Sage - 05/18/2013 13:40 CDT Modifiers OT Functional Limitation Category : Self-care Functional Limitation Severity Code Determined By : DASH score of 41.6. OT Self-Care Current Status : CK At least 40% but less than 60% Impaired, Limited or Restricted OT Self-Care Goal Status : CK At least 40% but less than 60% Impaired, Limited or Restricted OT Self-Care Discharge Status : CK At least 40% but less than 60% Impaired, Limited or Restricted [facility] BROWN - 05/18/2013 13:40 CDT Source: [email or web address] Document Id: [id number] [id number] Shon Tillman, P.T. - 05/17/2013 11:45 AM CDT Physical Therapy Initial Evaluation Physical Therapy Initial Evaluation Entered On: 05/17/2013 11:56 CDT Performed On: 05/17/2013 11:45 CDT by SHON TILLMAN DPT General Info Reason for Referral to Physical Therapy : Decreased balance, Decreased endurance, Decreased mobility, Decreased safety, Fall history, Pain Physical Therapy Orders : Physical Therapy Evaluate & Treat - 05/15/13 21:03:00 CDT, fall pain in baCK, shoulder asnd rib fracture Precautions to Rehabilitation Treatment : Fall risk L 8th rib fracture Pain Symptoms : Yes Orientation : Oriented x 3 Safety/Judgment : Intact Basic Command Following : Intact SHON TILLMAN DPT - 05/17/2013 11:45 CDT Pain Pain Assessment Grid Pain 1 Location : Lower back (Comment: L SI joint [SHON TILLMANT - 05/17/2013 14:33 CDT] ) Laterality : Left Intensity : 6 SHON TILLMAN DPT - 05/17/2013 11:45 CDT Home Environment Lives In : Single level home Lives With : Spouse SHON TILLMAN T - 05/17/2013 14:33 CDT Rehabilitation Stairs Grid Inside Stairs Outside Stairs Number of Stairs : 2 1 Rail : Bilateral SHON TILLMAN Lee T - 05/17/2013 14:33 CDT SHON TILLMAN T - 05/17/2013 14:33 CDT Patient's Responsibilities : Driving, Hobbies, Housework, Laundry, Meal preparation SHON TILLMAN Lee T - 05/17/2013 14:33 CDT Living Environment : Living Situation: Other: home independently with Current Home Treatments: None Home Devices/Equipment None Professional Skilled Services: None Special Services and Community Resources: None Sensory Deficits: Performed by: ANISHA BROWER RN-05/15/13 20:56:00 MONICA TILLMANJose A Howard [facility] - 05/17/2013 11:45 CDT Prior Functional Level Grid Bed Mobility : Independent Transfers : Independent Ambulation at Home : Independent Community Ambulation : Independent Stairs : Independent Car Transfers : Independent Toilet Transfers : Independent Upper Extremity Bathing : Independent Lower Extremity Bathing : Independent Upper Extremity Dressing : Independent Lower Extremity Dressing : Independent Grooming : Independent SHON TILLMAN Lee [facility] - 05/17/2013 11:45 CDT Musculoskeletal PT Range of Motion Grid Left Upper Extremity : Active Within Normal Limits, Passive Within Normal Limits Right Upper Extremity : Passive Within Normal Limits, Active Within Normal Limits Left Lower Extremity : Active Within Normal Limits, Passive Within Normal Limits, Other Right Lower Extremity : Active Within Normal Limits, Passive Within Normal Limits SHON TILLMAN Lee T - 05/17/2013 11:45 CDT Left LE Range of Motion Detailed : Slow movements due to pain in low back Left Lower Extremity Strength : Other: At least 3/5 hip flexion, knee extension. 2/5 hip abduction/adduction Right Lower Extremity Strength : Other: At least 3/5 hip flexion, knee extension. 2/5 hip abduction/adduction ANNIEKM IRAHETAROSITA Howard T - 05/17/2013 11:45 CDT Balance/Mobility Sitting/Standing Balance Grid Sitting Balance : Fair (Comment: Requires UE assist [SHON TILLMAN [facility] - 05/17/2013 14:33 CDT] ) Standing Balance : Fair (Comment: Requires walker for assist. Impaired due to dizziness [SHON TILLMAN [facility] - 05/17/2013 14:33 CDT] ) SHON TILLMAN [facility] - 05/17/2013 11:45 CDT Mobility Grid Supine to Sit : Minimal assist Sit to Supine : Minimal assist Scooting : Minimal assist Sit to Stand : Contact guard Stand to Sit : Contact guard Bed to/from Chair : Minimal assist SHON TILLMAN [facility] - 05/17/2013 11:45 CDT Ambulation Quality : Amb. 20 ft in room, 2WW, CGA, slow pace, unsteady, limited by pain in L low back SHON TILLMAN [facility] - 05/17/2013 11:45 CDT Neuro Muscle Tone : Normal SHON TILLMAN [facility] - 05/17/2013 11:45 CDT Assessment Rehabilitation Potential : Fair PT Problem List : Ambulation deficits, Balance deficits, Bed mobility deficits, Decreased activity tolerance, Pain limiting function, Strength/Range of motion deficits, Transfer deficits SHON TILLMAN [facility] - 05/17/2013 11:45 CDT PT Clinical Assessment : Pt was admitted for observation s/p a fall in [facility]. She sustained a L 8th rib fracture and L hip contusion. She presented in evaluation with impaired balalance, impairedbed mobility, impaired mobility due to pain and overall a fall risk. She was very weak and dizzy andpain limited pt from performing balance test. She will benefit from skilled physical therapy while in the hospital under observation. She is not safe to discharge home at this time. SHON TILLMAN [facility] - 05/17/2013 14:33 CDT Goals PT Bed Mobility Goal : Standby assistance PT Bed Mobility Goal Time Frame : 1 day(s) PT Sit on Edge of Bed Goal : Standby assistance PT Sit on Edge of Bed Time Frame : 1 day(s) PT Stand Goal : Standby assistance PT Stand Goal Time Frame : 1 day(s) PT Transfer Goal : Standby assistance PT Transfer Device Goal : Front wheeled walker PT Transfer Goal Time Frame : 1 day(s) PT Ambulation Goal : Standby assistance PT Ambulation Device Goal : Front wheeled walker PT Ambulation Distance Goal : 30 m PT Ambulation Goal Time Frame : 1 day(s) SHON TILLMAN Lee DPT - 05/17/2013 11:45 CDT Plan PT Frequency : Daily PT Duration : One day PT Anticipated Treatments : Gait training, Hot/cold packets, Therapeutic activities, Therapeutic exercise JENNIFERKMSHON M DPT - 05/17/2013 11:45 CDT DC Recommendations Discharge To, Anticipated : Home with family longterm Equipment, Anticipated : Grab bars, Shower chair, Walker Walker Specifics : Front wheeled walker Professional Skilled Services, Anticipated : Occupational Therapy, Physical Therapy JENNIFERKMSHON M DPT - 05/17/2013 11:45 CDT Education PT Education Grid Topics : Physical Therapy plan of care Individuals Taught : Patient Barriers to Learning : None evident Teaching Method : Explanation Teaching Evaluation : Verbalizes understanding JENNIFER SHON M DPT - 05/17/2013 11:45 CDT PT Charge Registration Status - PT : Inpatient: Observation Medicare Status - PT : Medicare Primary or Secondary KX Modifier Required - PT : No PT Certification Date Start : 05/17/2013 CDT PT Certification Date End : 05/18/2013 CDT Visit Requires [facility] Reporting - PT : Initial Evaluation: Report Current Status and Goal Status PT Evaluation Time : 25 minute(s) Physical Therapy Evaluation Charges : Yes PT Number of Patient Visits : 1 PT Visit, Inpatient : Yes ANNIESHON IRAHETA Lee DPT - 05/17/2013 11:45 CDT Modifiers Severity Code Determined By : Pt was unable to perform balance test due to fatigue and dizziness. Used PTs objective measures and clinical judgement. ANNIEMYRTLE SHON M DPT - 05/17/2013 14:33 CDT Functional Limitation Category : Mobility: Walking & Moving Around Functional Limitation Mobility Current Status : CL At least 60% but less than 80% Impaired, Limited or Restricted Mobility Goal Status : CI At least 1% but less than 20% Impaired, Limited or Restricted ANNIEKM IRAHETAROSITA Howard DPT - 05/17/2013 11:45 CDT Mobility Discharge Status : Not Applicable for the selected CMS Reporting ANNIEKM IRAHETAROSITA Howard DPT - 05/17/2013 14:33 CDT Source: [facility] POWERCHART Document Id: [id number] CDT![id number] NT Jordi Wilson M.D. - 05/17/2013 12:00 AM CDT [id number] CHIEF COMPLAINT/REASON FOR VISIT Patient has 8th rib fracture and patient is complaining of significant amount of hip pain today. Patient and family are concerned about possible hip fracture. Initial x-ray did not show any fracture. She has had difficulty walking has had increasing pain with weightbearing. The pain is under poor control. Patient is currently on morphine and also taking gabapentin. She is also on by mouth Percocet. Multimodality treatment is discussed. Patient was able to work with physical therapy. She states she took some steps and she also sat up in the chair. She is less groggy compared to yesterday. She statesthe hip pain is worse today than even the ribcage pain. Patient has pain with deep inspiration. CURRENT MEDICATIONS Medication list is reviewed. PAST MEDICAL HISTORY/SURGICAL HISTORY Past medical history is reviewed. PHYSICAL EXAMINATION HEENT: HEENT examination is unremarkable. NECK: neck is supple. LUNGS: chest with tenderness in the left lower ribcage. Patient catches when she takes a deeper breath and catches because of significant amount of rib pain. ABDOMEN: abdomen soft and nontender. EXTREMITIES/JOINTS: patient has significant amount of left sacral tenderness. Range of motion of thehip is with some discomfort on the left side. There is some pain on the trochanteric bursa. There appears to be a hematoma in the left gluteal area. IMPRESSION/REPORT/PLAN 1. Left hip hematoma and contusion. 2. Left 8th rib fracture. 3. Fall with multiple contusions. PLAN: multimodality treatment is discussed. Patient is started on Celebrex 100 mg twice a day and Tylenol 650 mg 3 times a day. Discontinue Percocet and start on oxycodone 5 to 10 mg q4h as needed for pain. Ice locally to left hip and left chest 3 times a day for 20 minutes at a time for the next 48 hours. Patient will continue with physical therapy and occupational therapy. If patient continues to make progress, then possible discharge tomorrow. Jordi Wilson M.D./ Electronically Signed By: JORDI WILSON MD On: 05/18/2013 06:11 AM Source: [facility] MHSDOLBEYNONRADSYS Document Id: [id number] Jordi Wilson M.D. - 05/16/2013 12:00 AM CDT [id number] CHIEF COMPLAINT/REASON FOR VISIT Patient is complaining of left-sided ribcage pain and left hip pain. No shortness of breath. Patientappears slightly groggy with pain medications. Patient is examined in room #314. She has pain with deep inspiration and pain with movement. Chart is reviewed. CURRENT MEDICATIONS Medications are reviewed. PHYSICAL EXAMINATION HEENT: HEENT examination is unremarkable. NECK: neck no lymphadenopathy. No thyromegaly. No carotid bruits. LUNGS: chest with clear breath sounds bilaterally. HEART: CVS normal S1, S2, regular rate and rhythm. MUSCULOSKELETAL: Left-sided ribcage tenderness on palpation. Palpation of the left hip with pain around the trochanteric bursa. IMPRESSION/REPORT/PLAN Patient is currently on Toradol as needed for pain and she is also on morphine for pain. Zofran is given for nausea and vomiting. She will continue with gabapentin for now and will continue to reassesspatient's pain. She will have physical therapy consultation tomorrow to get patient out of bed and for further assessment of her pain tolerance with movements. Jordi Wilson M.D./ Electronically Signed By: JORDI WILSON MD On: 05/17/2013 07:46 AM Source: [facility] MHSDOLBEYNONRADSYS Document Id: [id number] documented in this encounter H&P Notes Umu Coker O.T. - 05/17/2013 10:20 AM CDT OT Initial Evaluation OT Initial Evaluation Entered On: 05/17/2013 10:33 CDT Performed On: 05/17/2013 10:20 CDT by UMU BROWN General Info Reason for Referral to OT : Fall history, General weakness Occupational Therapy Orders : Occupational Therapy Evaluate & Treat - 05/15/13 21:03:00 CDT, fall with pain in back and shoulder and rib fracture Pain Symptoms : Yes Weight Bearing : Weight bearing as tolerated General Mode of Communication : Verbal UMU BROWN - 05/17/2013 10:20 CDT Pain Pain Assessment Grid Pain 1 Location : Lower back Laterality : Left Intensity : 2 UMU BROWN - 05/17/2013 10:20 CDT (Comment: Pt. reports pain 2/10 when laying with HOB elevated to 45 degrees. Pt. reports pain 10/10 upon moving LE to EOB. [[facility] BROWN - 05/17/2013 14:25 CDT] ) Effects of Pain Grid Concentration : Moderate Daily Life : Moderate UMU BROWN - 05/17/2013 10:20 CDT Home Environment Lives In : Single level home Lives With : Spouse STEPHANIE UMU Sage - 05/17/2013 13:50 CDT Stairs Grid Inside Stairs Outside Stairs Number of Stairs : 2 1 Rail : Bilateral UMU BROWN - 05/17/2013 13:50 CDT UMU BROWN 05/17/2013 13:50 CDT Bathroom Set Up : Walk in shower (Comment: Pt. reports a walk in shower and reg. height toilet with no grab bars. [[facility] BROWN 05/17/2013 14:25 CDT] ) Patient's Responsibilities : Housework, Laundry, Meal preparation UMU BROWN 05/17/2013 13:50 CDT Prior Functional Level Grid Bed Mobility : Independent Transfers : Independent Ambulation at Home : Independent Community Ambulation : Independent Stairs : Independent Car Transfers : Independent Toilet Transfers : Independent Self Feeding : Independent Upper Extremity Bathing : Independent Lower Extremity Bathing : Independent Upper Extremity Dressing : Independent Lower Extremity Dressing : Independent Toileting : Independent Bowel/Bladder Management : Independent Grooming : Independent Driving : Independent Housekeeping : Independent ISAURO BROWNUNNA Chu 05/17/2013 13:50 CDT Living Situation : Home independently ISAURO BROWNUNNA Chu 05/17/2013 13:50 CDT Living Environment : Living Situation: Other: home independently with Current Home Treatments: None Home Devices/Equipment None Professional Skilled Services: None Special Services and Community Resources: None Sensory Deficits: Performed by: ANISHA BROWER RN-05/15/13 20:56:00 BROWNISAUROUMU K 05/17/2013 10:20 CDT Musculoskeletal Hand Dominance : Right ISAURO BROWNYARITZA Sage 05/17/2013 10:20 CDT PT Range of Motion Grid Left Upper Extremity : Other Right Upper Extremity : Active Within Normal Limits, Passive Within Normal Limits [facility] BROWN 05/17/2013 10:20 CDT Left UE Range of Motion Detailed : Pt. L shoulder flexion and ABD are limited due to fx 8th rib on the L side. Left Upper Extremity Strength : Limited Right Upper Extremity Strength : Normal 5 [facility]MU BROWN 05/17/2013 10:20 CDT Left UE Strength Left Upper Extremity Strength Grid Elbow Flexion : Normal 5 (Comment: Pt. shoulder MMT not completed due to fx rib. [STEPHANIE UMU K 05/17/2013 14:25 CDT] ) Elbow Extension : Normal 5 Forearm Pronation : Normal 5 Forearm Supination : Normal 5 Wrist Flexion : Normal 5 Wrist Extension : Normal 5 Finger Flexion : Normal 5 Finger Extension : Normal 5 UMU BROWN 05/17/2013 10:20 CDT Neuro Muscle Tone : Normal Sensation Within Normal Limits : Yes Proprioception : Normal UMU BROWN 05/17/2013 10:20 CDT Cognition Orientation : Oriented x 3 Safety/Judgment : Intact Basic Command Following : Intact Problem Solving : Intact UMU BROWN 05/17/2013 10:20 CDT ADL Basic Activities of Daily Living Grid Self Feeding Hygiene/Grooming Upper Extremity Dressing Lower Extremity Dressing Assist Level : Independent Supervision/set up Supervision/set up Total assistance (Comment: Pt. is unable to complete dressing LE at this time due to pain levels upon movement of L LE. [[facility] BROWN05/17/2013 14:25 CDT] ) UMU BROWN 05/17/2013 10:20 CDT STEPHANIE UMU Sage 05/17/2013 10:20 CDT STEPHANIE UMU Chu 05/17/2013 10:20 CDT STEPHANIE UMU Sage 05/17/2013 10:20 CDT Functional Mobility OT Functional Mobility Grid OT Bed Mobility Assist Level : Total assistance (Comment: Pt. req. Min A. to complete moving B LE to EOB. Pt. was unable to complete supine to sit EOB due to increased pain with movment reporting pain 06/23 and inability to manipulate pelvis and L hip to complete sitting up at EOB. [BROWN UMU Chu 05/17/2013 14:25CDT] ) BROWN UMU Chu 05/17/2013 10:20 CDT Assessment Rehabilitation Potential : Good OT Problem List : Basic activity of daily living deficits, Decreased activity tolerance, Pain limiting function OT Clinical Asssessment : Pt. is a 78 y.o. female who presents status post a fall with a L 8th rib fx, shoulder pain, and back pain. Pt. has a past medical history of glaucoma, bursitis of hip, osteopenia, RA, and celiac disease. Pt. is appropriate for skilled OT in order to increase her ability to complete dressing, bathing, and grooming using A/E prn in order to return to [facility]. Pt. has a [id number] self- care with a modifier of CK. EVANS BROWNA Chu 05/17/2013 10:20 CDT Goals OT Patient/Caregiver Goal : Pt. would like to return home at [facility]. BROWN UMU K 05/17/2013 10:20 CDT OT Goal Grid Activity : Lower extremity dressing Hygiene/grooming Transfers Assist Level : Modified independence Modified independence Modified independence Device/Equipment : Mechanic Assistant, Sock aid Other: fww Other: fww Time Frame to Reach Goal (days) : 2 day(s) 2 day(s) 2 day(s) Comments (Comment: Pt. will increase activity tolerance to sit EOB to complete LE dressing using A/Eprn with Mod. I. [BROWN UMU Chu 05/17/2013 14:25 CDT] ) (Comment: Pt. will increase standing tolerance to stand at sink for 3:00 to complete grooming using Fww for support. [[facility] BROWN 05/17/2013 14:25 CDT] ) (Comment: Pt. will increase activity tolerance to complete bed and toilet transfers using Fww prn with Mod. I. and pain less than 5/10. [[facility] BROWN 05/17/2013 14:25 CDT] ) ISAURO BROWNUNNJose A Sage 05/17/2013 10:20 CDT UMU BROWN 05/17/2013 10:20 CDT UMU BROWN 05/17/2013 10:20 CDT Plan OT Frequency : Five times per week OT Duration : Throughout hospitalization OT Anticipated Treatments : Self care/home management, Therapeutic activities OT Tx Plan/Goals Established w Patient : Yes UMU BROWN 05/17/2013 10:20 CDT Treatment OT Total Treatment Time : 20 minute(s) UMU BROWN 05/17/2013 10:20 CDT OT Charge Registration Status - OT : Inpatient: Observation Medicare Status - OT : Medicare Primary or Secondary KX Modifier Required - OT : Yes Visit Requires [facility] Reporting - OT : Initial Evaluation: Report Current Status and Goal Status Occupational Therapy Evaluation Minutes : 20 minute(s) OT Evaluation Charge : Yes OT Number of Patient Visits : 1 OT Visit, Inpatient : Yes UMU BROWN 05/17/2013 10:20 CDT Modifiers OT Self-Care Discharge Status : Not Applicable for the selected CMS Reporting UMU BROWN 05/17/2013 14:25 CDT OT Functional Limitation Category : Self-care Functional Limitation [facility]MU BROWN 05/17/2013 10:20 CDT Severity Code Determined By : Disabilities of Arm Shoulder Hand, DASH score of 45.8 which indicates a 54% impairement. ISAURO BROWNUNNJose A Sage 05/17/2013 14:25 CDT OT Self-Care Current Status : CK At least 40% but less than 60% Impaired, Limited or Restricted STEPHANIE UMU Chu 05/17/2013 10:20 CDT OT Self-Care Goal Status : CI At least 1% but less than 20% Impaired, Limited or Restricted UMU BROWN Chu 05/17/2013 13:50 CDT Source: [email or web address] Document Id: [id number] Jordi Wilson M.D. - 05/15/2013 8:49 PM CDT [id number] CHIEF COMPLAINT/REASON FOR ADMISSION Fall with left-sided ribcage pain, back, and left-sided hip pain. HISTORY OF PRESENT ILLNESS This 78-year-old female is admitted by [facility]. Villagomez via the emergency room with complaints of a fall. Patient is complaining of left-sided ribcage pain. Patient initially had a fall when she was staying in a motel in [place] on May 12. She slipped on the ceramic tile floor while getting out of the tub due to the wet floor. She hit the toilet with her left back. She injured the left side of the chest and shoulder. She was seen in [place] in the emergency room and has had x-raystaken of the chest, hip and lumbar spine. She was diagnosed with rib fracture. She was sent home on Percocet and ibuprofen. She was in a significant amount of pain and was not able to attend her [facility] graduation ceremony. She [facility] She also had to use a wheelchair and a walker. Transfer was quite difficult and she kept having increasing pain. She is taking Percocet and ibuprofen. Because of significant ribcage pain, back pain, and left-sided hip pain, the patient decided to come to the emergency room. At that time, the patient was evaluated and examined by [facility]nut. Villagomez. Repeat x-rays were taken. Patient was diagnosed with left- sided rib fracture as seen on x-ray. Multiple medications were held at the time of admission as patient was taking 2 anti-inflammatories.Patient was taken off the diazepam as it could lead to significant confusion and fall. Patient was taken off ferrous gluconate for now. Gabapentin was continued. Ibuprofen and meloxicam were both held. CURRENT MEDICATIONS 1. Citrucel daily. 2. Vitamin B12 daily. 3. Aspirin 81 mg daily. 4. Calcium carbonate 2 tablets twice a day. 5. Diazepam 10 mg as needed for anxiety. 6. Cyclosporin. 7. Restasis eyedrops q12h. 8. Cosopt ophthalmic drops one drop daily. 9. Ferrous gluconate twice a day. 10. Rochelle D one twice a day. 11. Flonase nasal spray 2 sprays each nostril daily. 12. Gabapentin 300 mg 3 tablets at night. 13. Ibuprofen 600 q4h as needed. 14. Mobic 7.5 mg twice a day. 15. Multivitamin daily. 16. Omeprazole 40 mg daily. 17. Percocet 5/325 mg one tablet q4h as needed. 18. Gas-X. PAST MEDICAL HISTORY/SURGICAL HISTORY Past medical history significant for radiculopathy with lumbar disk disease, glaucoma, allergic rhinitis, rheumatoid arthritis, osteopenia, cataract, celiac disease, hip bursitis, and atrophic vaginitis. SURGICAL HISTORY: hemorrhoidectomy, hysterectomy, reduction mammoplasty, cystocele repair, cataract removal, laminectomy in 2009 at age 74, diagnostic colonoscopy in 2010. FAMILY HISTORY One brother has kidney disease. Father had history of glaucoma. There is a brother with Down's syndrome and a brother with celiac disease. PHYSICAL EXAMINATION GENERAL: patient is examined in room #314. Patient carries on a decent conversation. She appears to be in pain. HEENT: PERRL, EOMs are normal. Normal TMs bilaterally. Pharynx mildly erythematous tonsillar pillarsand uvula. NECK: neck no lymphadenopathy. No thyromegaly. No carotid bruits. LUNGS: chest with clear breath sounds in upper lung meng with decrease in breath sounds at the left base. She has tenderness on the left chest wall. ABDOMEN: abdomen soft and nontender. No cva tenderness. EXTREMITIES/JOINTS: there is left hip tenderness on palpation at the site of the greater trochanter.There is some discomfort on range of motion of the left hip. NEURO: cranial nerves are intact. Sensorimotor examination is unremarkable. IMAGING: x-ray findings were reviewed. X-ray of the chest shows atelectasis and acute left 8th rib fracture with no signs of pneumothorax. X-ray of the left hip shows no signs of fracture or dislocation. Lumbar spine x-ray shows no signs of acute fracture. Degenerative disk disease is noted. Shoulder x-ray is also negative. IMPRESSION/REPORT/PLAN 1. Fall with multiple contusions. 2. Left hip contusion. 3. Left-sided 8th rib fracture secondary to fall with rib contusion. PLAN: patient is admitted for pain management, evaluation and further diagnostic testing as needed. Initial chest x-rays and lumbar spine x-ray along with left shoulder x-ray findings are reviewed. Findings are discussed with the patient. Patient will continue with pain evaluation. As her pain gets better, then physical therapy will be consulted to get patient out of bed for further mobility assessment. Patient is admitted for observation for further management. Jordi Wilson M.D./deandre Electronically Signed By: JORDI WILSON MD On: 05/17/2013 09:10 AM Source: [facility] [email or web address] Document Id: [id number] documented in this encounter Procedure Notes Melvin Francis RChelsey - 05/18/2013 2:58 PM CDT Peripheral IV Peripheral IV Entered On: 05/18/2013 14:58 CDT Performed On: 05/18/2013 14:58 CDT by MELVIN SINGER RN Peripheral IV Peripheral IV Assess/Intervention Grid Peripheral IV #1 IV Activity : Discontinue Date of Insertion : 05/15/2013 CDT IV Site : Antecubital Laterality : Right Comments (Comment: Removed with IV cath intact [MELVIN SINGER RN - 05/18/2013 14:58 CDT] ) MELVIN SINGER RN - 05/18/2013 14:58 CDT Source: [facility] [employer]CHART Document Id: [id number] CDT!8 Melvin Francis R.N. - 05/18/2013 2:54 PM CDT Bladder Scan Bladder Scan Entered On: 05/18/2013 14:55 CDT Performed On: 05/18/2013 14:54 CDT by ENMANUEL, MELVIN M RN Bladder Scan Void Prior to Bladder Scan : No Bladder Distention : Absent Patient States Need to Void : No Position During Bladder Scan : Supine Bladder Scan Volume : 32 mL MELVIN SINGER RN - 05/18/2013 14:54 CDT Source: [email or web address] Document Id: [id number] CDT!7 Melvin Francis R.N. - 05/18/2013 9:00 AM CDT Urinary Catheter Insertion/Discontinuation Urinary Catheter Insertion/Discontinuation Entered On: 05/18/2013 10:07 CDT Performed On: 05/18/2013 9:00 CDT by MELVIN SINGER RN Urinary Catheter Urinary Catheter Activity Type : Discontinue Urinary Catheter Insertion Site : Urethral Urinary Catheter Size : 16 [place] Urinary Catheter Type : Indwelling/Continuous Date/Time Catheter Discontinued : 05/18/2013 9:00 CDT Urinary Catheter Balloon Inflation : 10 mL sterile water Urinary Catheter Drainage System : Dependent drainage bag Urinary Catheter Procedure Response : Expected Urinary Catheter Procedure Tolerance : Good MELVIN SINGER RN - 05/18/2013 10:07 CDT Source: [email or web address] Document Id: [id number] CDT!11 Chung Richardson R.N. - 05/16/2013 6:45 PM CDT Pulse Oximetry Pulse Oximetry Entered On: 05/16/2013 18:50 CDT Performed On: 05/16/2013 18:45 CDT by CHUNG RICHARDSON RN Pulse Oximetry SpO2 : 96 % Oxygen Saturation Monitoring Frequency : Continuous Saturation Probe Site : Hand, right Oxygen Therapy : Room air CHUNG RICHARDSON RN - 05/16/2013 18:50 CDT Source: [facility] [employer] Document Id: [id number] CDT!6 documented in this encounter Nursing Notes Melvin Francis R.N. - 05/18/2013 2:55 PM CDT Void Pt's catheter was removed at 0900 and patient has some urine with BM around 1200. Prior to DC pt was worried about not being able to void. Bladder scan completed at this time and pt had 32mls in bladder. Encouraged patient to drink lots of fluids when she returns home. Electronically Signed By: MELVIN SINGER RN On: 05/18/2013 02:57 PM Source: [email or web address] Document Id: [id number] Yeimy Lang R.N. - 05/18/2013 1:21 PM CDT Inpatient Immunization Assessment Inpatient Immunization Assessment Entered On: 05/18/2013 13:22 CDT Performed On: 05/18/2013 13:21 CDT by YEIMY LANG RN Influenza Protocol Influenza Vaccine Exclusions : Patient has none of the below exclusions Influenza Patient Wants Vaccine : No - Patient refused (Comment: pt wants to defer d/t unable to take full dose. She will get in the clininc with PCP Bianca 3 small increments next month she said [YEIMY LANG RN - 05/18/2013 13:21 CDT] ) YEIMY LANG RN - 05/18/2013 13:21 CDT Source: [facility] [employer] Document Id: [id number] CDT!4 Melvin Francis R.N. - 05/18/2013 7:15 AM CDT PRN Response PRN Response Entered On: 05/18/2013 10:09 CDT Performed On: 05/18/2013 7:15 CDT by MELVIN SINGER RN PRN Medication Effectiveness Evaluation PRN Medication Effective : Yes (Comment: patient sleeping at time of assessment [MELVIN SINGER RN - 05/18/2013 10:08 CDT] ) MELVIN SINGER RN - 05/18/2013 10:08 CDT Source: [facility] [employer] Document Id: [id number] CDT!3 Anju Moreno R.N. - 05/18/2013 3:37 AM CDT PRN Response PRN Response Entered On: 05/18/2013 3:37 CDT Performed On: 05/18/2013 3:37 CDT by ANJU MORENO RN PRN Medication Effectiveness Evaluation PRN Medication Effective : Other: patient sleeping ANJU MORENO RN - 05/18/2013 3:37 CDT Source: [email or web address] Document Id: [id number] CDT!3 Anju Moreno R.N. - 05/18/2013 1:31 AM CDT PRN Response PRN Response Entered On: 05/18/2013 1:31 CDT Performed On: 05/18/2013 1:31 CDT by ANJU MORENO RN PRN Medication Effectiveness Evaluation PRN Medication Effective : Other: patient sleeping ANJU MORENO RN - 05/18/2013 1:31 CDT Source: [facility] [employer] Document Id: [id number] CDT!3 Linda Pal L.S.W. - 05/18/2013 12:00 AM CDT [id number] MENTAL HEALTH DIRECTOR NOTE Today, May 18, 2013, this Nitric Acid Concentrator Operator visited with the patient as she was getting ready to return home. The patient did not request any resources for future use or for any services to be set up for her. She reviewed and signed the Medicare Rights form and received a copy. She did not have any questions or concerns for this Nitric Acid Concentrator Operator. Rick Dykes/[facility] Electronically Signed By: LINDA PAL On: 05/18/2013 02:48 PM Modified by and Electronically Signed by: LINDA PAL On: 05/18/2013 02:48 PM Source: [email or web address] Document Id: [id number] Rina Montoya R.N. - 05/17/2013 2:30 PM CDT PRN Response PRN Response Entered On: 05/17/2013 17:58 CDT Performed On: 05/17/2013 14:30 CDT by RINA MONTOYA RN PRN Medication Effectiveness Evaluation PRN Medication Effective : Yes (Comment: patient was sleeping at time of prn assesment [RINA MONTOYA RN - 05/17/2013 17:57 CDT] ) RINA MONTOYA RN - 05/17/2013 17:57 CDT Source: [facility] [employer]CHART Document Id: [id number] CDT!3 Linda Pal L.SAdalid - 05/17/2013 12:50 PM CDT Accountant Certified Public/Discharge Planning Accountant Certified Public/Discharge Planning Entered On: 05/17/2013 12:51 CDT Performed On: 05/17/2013 12:50 CDT by LINDA PAL Assessment Accountant Certified Public Needs : No needs at this time Follow in Interdisciplinary Team : Yes Referral : Physician Information Obtained From : Patient Languages : Yemeni [employer]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 Needed : No Mental Status : Alert LINDA PAL - 05/17/2013 12:50 CDT Advance Directive Advanced Directives : No Advance Directive Additional Information : Yes LINDA PAL - 05/17/2013 12:50 CDT Psychosocial Domestic Abuse Concerns : None LINDA PAL - 05/17/2013 12:50 CDT Dependent Habits Tobacco Use/Currently Using : No Exposure to Tobacco Smoke : Care provider denies smoking in home Smoking Status : Never smoker LINDA PAL - 05/17/2013 12:50 CDT Tobacco Use Grid Last Use : never LINDA PAL - 05/17/2013 12:50 CDT Caffeine Use Grid Caffeine Use : Current Type : Coffee Frequency : Weekly LINDA PAL - 05/17/2013 12:50 CDT Recreational Drug Use Grid Drug Use : None LINDA PAL - 05/17/2013 12:50 CDT Source: [email or web address] Document Id: [id number] CDT!29 Rina Montoya R.N. - 05/17/2013 8:19 AM CDT PRN Response PRN Response Entered On: 05/17/2013 10:22 CDT Performed On: 05/17/2013 8:19 CDT by RINA MONTOYA RN PRN Medication Effectiveness Evaluation PRN Medication Effective : Yes RINA MONTOYA RN - 05/17/2013 10:22 CDT Source: [email or web address] Document Id: [id number] CDT!3 Rina Montoya R.N. - 05/17/2013 7:38 AM CDT PRN Response PRN Response Entered On: 05/17/2013 11:21 CDT Performed On: 05/17/2013 7:38 CDT by RINA MONTOYA RN PRN Medication Effectiveness Evaluation PRN Medication Effective : Yes Post Medication Pain Assessment : 5 RINA MONTOYA RN - 05/17/2013 11:21 CDT Source: [email or web address] Document Id: [id number] CDT!4 Nanci Ventura R.N. - 05/17/2013 1:13 AM CDT PRN Response PRN Response Entered On: 05/17/2013 1:13 CDT Performed On: 05/17/2013 1:13 CDT by NANCI VENTURA PRN Medication Effectiveness Evaluation PRN Medication Effective : Yes NANCI VENTURA - 05/17/2013 1:13 CDT Comfort Measures Patient Response : pt indicated pain was reduced to level 3/10 following admin. Currently asleep. Comfort Measures Response : Comfort level increased NANCI VENTURA - 05/17/2013 1:13 CDT Source: [email or web address] Document Id: [id number] CDT!6 Linda Pal L.S.W. - 05/17/2013 12:00 AM CDT [id number] SOCIAL WORK Today, May 17, 2013, this Nitric Acid Concentrator Operator visited with the patient. She had been living at home with her independently and she was not receiving any services at home. Her goal is to return back home with her and additional family support. She explained that she did not fall at home and was not wanting any services set up for her or receive any resources for future use. She did not have any questions or concerns for this Nitric Acid Concentrator Operator. Rick Dykes/[employer] Electronically Signed By: LINDA PAL On: 05/18/2013 07:27 AM Modified by and Electronically Signed by: LINDA PAL On: 05/18/2013 07:27 AM Source: [email or web address] Document Id: [id number] Chung Richardson R.N. - 05/16/2013 6:50 PM CDT PRN Response PRN Response Entered On: 05/16/2013 18:50 CDT Performed On: 05/16/2013 18:50 CDT by CHUNG RICHARDSON RN PRN Medication Effectiveness Evaluation PRN Medication Effective : Yes (Comment: Patient sleeping [CHUNG RICHARDSON RN - 05/16/2013 18:50 CDT] ) CHUNG RICHARDSON RN - 05/16/2013 18:50 CDT Source: [email or web address] Document Id: [id number] CDT!3 Chung Richardson R.N. - 05/16/2013 6:15 PM CDT PRN Response PRN Response Entered On: 05/16/2013 18:31 CDT Performed On: 05/16/2013 18:15 CDT by CHUNG RICHARDSON RN PRN Medication Effectiveness Evaluation PRN Medication Effective : No Post Medication Pain Assessment : 6 CHUNG RICHARDSON RN - 05/16/2013 18:30 CDT Source: [email or web address] Document Id: [id number] CDT!4 Chung Richardson R.N. - 05/16/2013 5:50 PM CDT PRN Response PRN Response Entered On: 05/16/2013 17:27 CDT Performed On: 05/16/2013 17:50 CDT by CHUNG RICHARDSON RN PRN Medication Effectiveness Evaluation PRN Medication Effective : Yes Post Medication Pain Assessment : 4 CHUNG RICHARDSON RN - 05/16/2013 17:27 CDT Source: [email or web address] Document Id: [id number] CDT!4 Chung Richardson R.N. - 05/16/2013 2:10 PM CDT PRN Response PRN Response Entered On: 05/16/2013 17:26 CDT Performed On: 05/16/2013 14:10 CDT by CHUNG RICHARDSON RN PRN Medication Effectiveness Evaluation PRN Medication Effective : Yes (Comment: Patient sleeping. [CHUNG RICHARDSON RN - 05/16/2013 17:26 CDT] ) Post Medication Pain Assessment : 3 CHUNG RICHARDSON RN - 05/16/2013 17:26 CDT Source: [email or web address] Document Id: [id number] CDT!4 Chung Richardson R.N. - 05/16/2013 12:00 PM CDT PRN Response PRN Response Entered On: 05/16/2013 13:35 CDT Performed On: 05/16/2013 12:00 CDT by CHUNG RICHARDSON RN PRN Medication Effectiveness Evaluation PRN Medication Effective : Yes Post Medication Pain Assessment : 3 (Comment: Is 2-3 without movement, when patient is lying still. Pain increases to 7 with movement. [CHUNG RICHARDSON RN - 05/16/2013 13:32 CDT] ) CHUNG RICHARDSON RN - 05/16/2013 13:32 CDT Comfort Measures Comfort Measures Grid Meditation Facilitation : Yes Positioning : Yes Quiet Environment : Yes Rest : Yes CHUNG RICHARDSON RN - 05/16/2013 13:32 CDT Source: [email or web address] Document Id: [id number] CDT!10 Anisha Brower R.N. - 05/16/2013 5:00 AM CDT PRN Response PRN Response Entered On: 05/16/2013 5:07 CDT Performed On: 05/16/2013 5:00 CDT by ANISHA BROWER RN PRN Medication Effectiveness Evaluation PRN Medication Effective : Other: pt sleeping ANISHA BROWER RN - 05/16/2013 5:07 CDT Source: [email or web address] Document Id: [id number] CDT!3 Anisha Brower R.N. - 05/16/2013 12:20 AM CDT PRN Response PRN Response Entered On: 05/16/2013 0:24 CDT Performed On: 05/16/2013 0:20 CDT by ANISHA BROWER RN PRN Medication Effectiveness Evaluation PRN Medication Effective : Yes Post Medication Pain Assessment : 4 ANISHA BROWER RN - 05/16/2013 0:23 CDT Source: [email or web address] Document Id: [id number] CDT!4 Anisha Brower R.N. - 05/15/2013 9:13 PM CDT Pneumonia Immunization Assessment Pneumonia Immunization Assessment Entered On: 05/15/2013 21:13 CDT Performed On: 05/15/2013 21:13 CDT by ANISHA BROWER RN Pneumonia Protocol Pneumococcal Vaccine Exclusions : Patient has received the vaccine after age of 65 Pneumococcal Exclusion Candidate Status : No ANISHA BROWER RN - 05/15/2013 21:13 CDT [facility] Id: [id number] CDT!4 documented in this encounter Miscellaneous Notes Miscellaneous - Melvin Francis R.N. - 05/19/2013 2:12 PM CDT Communication Note Communication Note Entered On: 05/19/2013 14:23 CDT Performed On: 05/19/2013 14:12 CDT by MELVIN SINGER RN Communication Subject of Note : Family/patient concern or action Assessment Communication Note : Patient called and spoke with this nurse stating that she is feelinglight headed and naueseated. This nurse asked about when the patient last took pain medication and she had taken 10mg of oxycodone at 0500 and oxycontin at 0900. Patient had taken medications on an empty stomach which nurse advised to eat a little something first. Patient was also asked if she has been drinking well to which she stated that she has not really been. This nurse advised patient to try to increase fluids today and eat a light diet. Instructed patient to take time when rising and to 'getbearings' when getting up and moving. Also instructed patient to see how she feels after doing thosethings and if she is not getting better or is getting worse to call and get an appointment in the clinic or if need be the ER is always open and able to assess her. MELVIN SINGER RN - 05/19/2013 14:12 CDT Source: [email or web address] Document Id: [id number] CDT!4 Miscellaneous - Melvin Francis R.N. - 05/18/2013 11:02 AM CDT Adult Ongoing Assessment Adult Ongoing Assessment Entered On: 05/18/2013 11:10 CDT Performed On: 05/18/2013 11:02 CDT by MELVIN SINGER RN Respiratory Respiratory Patient Stated Symptoms : None Respirations : Unlabored, Shallow (Comment: shallow r/t pain [MELVIN SINGER RN - 05/18/2013 11:02 CDT] ) Respiratory Pattern : Regular All Lobes Breath Sounds : Clear, Diminished Cough and Deep Breathe : Done Cough : Able to clear secretions Sputum Amount : None (Comment: none seen [MELVIN SINGER RN 05/18/2013 11:02 CDT] ) MELVIN SINGER - 05/18/2013 11:02 CDT Cardiovascular CV Patient Stated Symptoms : None Heart Rhythm : Regular Heart Sounds ICU : S1S2 Nail Bed Color : [place] Capillary Refill : Less than 2 seconds Edema Assessment : No Salvatore's Sign : Negative MELVIN SINGER - 05/18/2013 11:02 CDT Pulses Grid Radial Pulse, Left : 2+ Normal Radial Pulse, Right : 2+ Normal Dorsalis Pedis Pulse, Left : 2+ Normal Dorsalis Pedis Pulse, Right : 2+ Normal MELVIN SINGER - 05/18/2013 11:02 CDT Skin Color : Normal for ethnicity Skin Description : Dry Skin Temperature : Warm MELVIN SINGER - 05/18/2013 11:02 CDT Neurological Neuro Patient Stated Symptoms : Drowsiness Orientation : Oriented x 3 Level of Consciousness : Alert Gait : Steady Swallowing Difficulty/Aspiration Risk : None MELVIN SINGER - 05/18/2013 11:02 CDT Nabil Coma Eye Opening Response Nabil : Spontaneously Best Verbal Response Nabil : Oriented Best Motor Response [place] : Obeys simple commands [place] Coma Score : 15 MELVIN SINGER 05/18/2013 11:02 CDT Psycho/Emotional Affect/Behavior : Calm, Cooperative, Appropriate Pain Symptoms : Yes Feels Rested : No (Comment: tires after therapy [MELVIN SINGER 05/18/2013 11:02 CDT] ) MELVIN SINGER 05/18/2013 11:02 CDT Coping Grid Identifies effective strategies : Yes Uses effective strategies : Yes Reports increase in psychological comfort : Yes Indicates sense of control : Yes Stressors perceived within control : Yes Stable mood with appropriate affect : Yes Behaviors indicate use of coping mechanism : Yes Family supportive and involved in care : Yes Values/Beliefs incorporated appropriately : Yes MELVIN SINGER - 05/18/2013 11:02 CDT Safety Grid Vision, Hearing, Mobility Adequate to Meet Safety Needs : No MELVIN SINGER 05/18/2013 11:02 CDT Pain Pain Assessment Grid Pain 1 Location : Other: Ribs Laterality : Left Intensity : 5 MELVIN SINGER [facility] 05/18/2013 11:02 CDT Gastrointestinal GI Patient Stated Symptoms : None Abdomen Description : Rounded Abdomen Palpation : Non-Tender, Soft Bowel Movement Last Date : 05/18/2013 CDT Bowel Sounds All Quadrants : Present Stool Color : Brown Stool Description : Formed, Hard Stool Amount : Large Passing Flatus : Yes MELVIN SINGER RN - 05/18/2013 11:02 CDT Nutrition Eating Difficulties : None Appetite : Good MELVIN SINGER RN - 05/18/2013 11:02 CDT Integumentary Integumentary Patient Stated Symptoms : Bruising Skin Turgor : Elastic Skin Integrity : Intact Mucous Membrane Color : [place] Mucous Membrane Description : Moist MELVIN SINGER RN - 05/18/2013 11:02 CDT Skin Abnormality/Location Grid Location : Upper back Laterality : Left, Lateral, Posterior Abnormality : Bruising MELVIN SINGER RN - 05/18/2013 11:02 CDT Robel Sensory Perception Robel : No impairment Moisture Robel : Occasionally moist Activity Robel : Walks occasionally Mobility Robel : Slightly limited Nutrition Robel : Adequate Friction and Shear Robel : Potential problem Robel Score : 18 MELVIN SINGER RN - 05/18/2013 11:02 CDT Musculoskeletal Musculoskeletal Patient Stated Symptoms : Joint stiffness, Joint swelling Activity Tolerance : Moderate distress MELVIN SINGER RN - 05/18/2013 11:02 CDT Peripheral IV Peripheral IV Assess/Intervention Grid Peripheral IV #1 IV Activity : Assessment Date of Insertion : 05/15/2013 CDT IV Site : Antecubital Laterality : Right MELVIN SINGER RN - 05/18/2013 11:02 CDT Hendrich II Fall Risk Confusion/Disorientation Hendrich : No Depression Fall Risk Hendrich : No Altered Elimination Fall Risk Hendrich : Yes Dizziness/Vertigo Fall Risk Hendrich : No Gender, Male Fall Risk Hendrich : No Prescribed Antiepileptics Hendrich : No Prescribed Benzodiazepines Hendrich : No Rising From Chair Fall Risk Hendrich : Unable to rise without assistance Fall Risk Score Hendrich II : 5 MELVIN SINGER RN - 05/18/2013 11:02 CDT Safe Patient Movement Safe Pt Movement Independent : No Safe Pt Movement Supervision/Minimal Assistance : Yes Mobility Status : Moderate assistance MELVIN SINGER RN - 05/18/2013 11:02 CDT Education General Patient Education [employer] Topics : Turn/Cough/Deep breathing, Other: Splinting Individuals Taught : Patient Barriers to Learning : None evident Teaching Method : Demonstration, Explanation Teaching Evaluation : Returns demonstrations correctly, Verbalizes understanding MELVIN SINGER RN - 05/18/2013 11:02 CDT Source: [facility] [employer] Document Id: [id number] CDT!122 Miscellaneous - Melvin Francis R.N. - 05/18/2013 10:09 AM CDT Adult Activities of Daily Living Adult Activities of Daily Living Entered On: 05/18/2013 10:10 CDT Performed On: 05/18/2013 10:09 CDT by MELVIN SINGER RN ADLs I Activity Assistance : Moderate 1 person assistance Assistive Device : Gait belt, Walker MELVIN SINGER RN - 05/18/2013 10:09 CDT ADLs II Bowel Movement Last Date : 05/12/2013 CDT Catheter discontinued : Yes Date/Time Catheter Discontinued : 05/18/2013 9:00 CDT Standard Safety : NIESHA/SCD/MARGO on per policy, Bed alarm ON, Call device within reach, Gait belt, ID band check, Non-Slip footwear, Rounds every 1 hour, Toilet every 2 hours, Wheels locked MELVIN SINGER RN - 05/18/2013 10:09 CDT ADLs Adult Nutrition Diet Type : Diet -- 05/15/13 21:03:00 CDT, Other, GLUTEN FREE WITH NO NUTS Feeding Assistance : Independent Breakfast : 100 % MELVIN SINGER RN - 05/18/2013 10:09 CDT Source: [facility] [employer] Document Id: [id number] CDT!13 Miscellaneous - Anju Moreno R.N. - 05/17/2013 7:42 PM CDT Adult Ongoing Assessment Adult Ongoing Assessment Entered On: 05/17/2013 19:44 CDT Performed On: 05/17/2013 19:42 CDT by TIFFANIE, ANJU M RN Respiratory Respiratory Patient Stated Symptoms : None Respirations : Unlabored Respiratory Pattern : Regular All Lobes Breath Sounds : Clear Cough : None Sputum Amount : None Suction : None Airway : Patent ANJU MORENO RN - 05/17/2013 19:42 CDT Cardiovascular CV Patient Stated Symptoms : None Heart Rhythm : Regular Heart Sounds ICU : S1S2 [facility] Bed Color : [place] Capillary Refill : Less than 2 seconds Edema Assessment : No ANJU MORENO RN - 05/17/2013 19:42 CDT Pulses Grid Radial Pulse, Left : 2+ Normal Radial Pulse, Right : 2+ Normal Dorsalis Pedis Pulse, Left : 2+ Normal Dorsalis Pedis Pulse, Right : 2+ Normal ANJU MORENO RN - 05/17/2013 19:42 CDT Skin Color : Normal for ethnicity Skin Description : Normal Skin Temperature : Warm ANJU MORENO RN - 05/17/2013 19:42 CDT Neurological Neuro Patient Stated Symptoms : None Orientation : Oriented x 3 Level of Consciousness : Alert Gait : Steady Swallowing Difficulty/Aspiration Risk : None ANJU MORENO RN - 05/17/2013 19:42 CDT Psycho/Emotional Affect/Behavior : Calm, Cooperative, Appropriate Pain Symptoms : No ANJU MORENO RN - 05/17/2013 19:42 CDT Gastrointestinal GI Patient Stated Symptoms : Gas Abdomen Description : Rounded Abdomen Palpation : Non-Tender, Soft Bowel Sounds All Quadrants : Present Passing Flatus : Yes ANJU MORENO RN - 05/17/2013 19:46 CDT Bowel Movement Last Date : 05/12/2013 CDT ANJU MORENO - 05/17/2013 19:42 CDT Nutrition Eating Difficulties : None Appetite : Fair ANJU MORENO RN - 05/17/2013 19:46 CDT Genitourinary Urinary Elimination : Urinary catheter Urine Color : Yellow Urine Description : Clear ANJU MORENO RN - 05/17/2013 19:46 CDT Urinary Catheter Details Urinary Catheter Clinical Indication : Prolonged immobilization/spinal injury Continued Need for Urinary Catheter : Other: will notify provider to remove 05/18/13 in the morning Catheter discontinued : No ANJU MORENO RN - 05/17/2013 19:46 CDT Integumentary Integumentary Patient Stated Symptoms : None Skin Turgor : Elastic Skin Integrity : Intact Mucous Membrane Color : [place] Mucous Membrane Description : Moist ANJU MORENO Lee RN - 05/17/2013 19:46 CDT Skin Abnormality/Location Grid Location : Upper back Laterality : Left, Lateral, Posterior Abnormality : Bruising ANJU MORENO RN - 05/17/2013 19:46 CDT Skin Color : Normal for ethnicity Skin Description : Normal Skin Temperature : Warm ADA MORENOYAQUELIN Howard RN - 05/17/2013 19:46 CDT Robel Sensory Perception Robel : No impairment Moisture Robel : Rarely moist Activity Robel : Walks occasionally Mobility Robel : Very limited Nutrition Robel : Adequate Friction and Shear Robel : Potential problem Robel Score : 18 ADA MORENOYAQUELIN Howard RN - 05/17/2013 19:46 CDT Peripheral IV Peripheral IV Assess/Intervention Grid Peripheral IV #1 IV Activity : Assessment Date of Insertion : 05/15/2013 CDT IV Site : Antecubital Laterality : Right Dressing/ Activity : Dry, Intact, Transparent ANJU MORENO Lee RN - 05/17/2013 19:46 CDT Hendrich II Fall Risk Confusion/Disorientation Hendrich : No Depression Fall Risk Hendrich : No Altered Elimination Fall Risk Hendrich : No Dizziness/Vertigo Fall Risk Hendrich : No Gender, Male Fall Risk Hendrich : No Prescribed Antiepileptics Hendrich : Yes Prescribed Benzodiazepines Hendrich : No Rising From Chair Fall Risk Hendrich : Unable to rise without assistance Fall Risk Score Hendrich II : 6 ADA MORENOYAQUELIN Howard RN - 05/17/2013 19:46 CDT Safe Patient Movement Safe Pt Movement Independent : No Safe Pt Movement Supervision/Minimal Assistance : No Safe Pt Movement Moderate Assistance : Yes Mobility Status : Moderate assistance ANJU MORENO Lee RN - 05/17/2013 19:46 CDT Education General Patient Education Powergrid Topics : Activity limitations/expectations, Allergies, Medication dosage, route, scheduling, Pain Management, Safety, fall, Use of pain scale(s), When to call health care provider Individuals Taught : Patient Barriers to Learning : None evident Teaching Method : Explanation Teaching Evaluation : Verbalizes understanding ADA MORENOYAQUELIN Howard RN - 05/17/2013 19:46 CDT Source: [email or web address] Document Id: [id number] CDT!105 [place] - Anju Moreno R.N. - 05/17/2013 7:41 PM CDT Adult Activities of Daily Living Adult Activities of Daily Living Entered On: 05/17/2013 19:42 CDT Performed On: 05/17/2013 19:41 CDT by ANJU MORENO RN ADLs I Patient Position : Supine Activity Assistance : Supervision/Minimum 1 person assistance Assistive Device : Gait belt, Walker ANJU MORENO RN - 05/17/2013 19:41 CDT ADLs II Bowel Movement Last Date : 05/12/2013 CDT Standard Safety : Bed in low position, Call device within reach, Gait belt, ID band check, Non-Slip footwear, Rounds every 2 hours, Upper/Half-length side- rails up, Wheels locked ANJU MORENO RN - 05/17/2013 19:41 CDT ADLs Adult Nutrition Diet Type : Diet -- 05/15/13 21:03:00 CDT, Other, GLUTEN FREE WITH NO NUTS Feeding Assistance : Independent ANJU MORENO RN - 05/17/2013 19:41 CDT Source: [facility] POWERCHART Document Id: [id number] CDT!11 Payton - Rina Montoya R.N. - 05/17/2013 11:05 AM CDT Adult Ongoing Assessment Adult Ongoing Assessment Entered On: 05/17/2013 11:16 CDT Performed On: 05/17/2013 11:05 CDT by RINA MONTOYA RN Respiratory Respiratory Patient Stated Symptoms : Other: patient experiences pain with inspiration due to rib fracture Respirations : Shallow Respiratory Pattern : Regular Cough and Deep Breathe : Done Sputum Amount : None Suction : None Airway : Patent Respiratory Detailed Assessment : Yes RINA MONTOYA RN - 05/17/2013 11:05 CDT Resp Detailed Breath Sounds Detailed Assessment Grid BUL : Clear BLL : Clear FANI : Clear RUL : Clear RML : Clear LLL : Diminished, Fine crackles RLL : Clear RINA MONTOYA RN - 05/17/2013 11:05 CDT Cardiovascular CV Patient Stated Symptoms : None Heart Rhythm : Regular Nail Bed Color : [place] Capillary Refill : Less than 2 seconds Salvatore's Sign : Negative Skin Color : Normal for ethnicity Skin Description : Dry Skin Temperature : Warm Activity Tolerance : Moderate distress Antiembolism Device : Sequential Compression Device Antiembolism Device Laterality : Bilateral Antiembolism Device Removal Reason : ADL care, Procedure/Treatment RINA MONTOYA RN - 05/17/2013 11:05 CDT Neurological Neuro Patient Stated Symptoms : Dizziness, Weakness Orientation : Oriented x 3 Level of Consciousness : Alert Gait : Unsteady Swallowing Difficulty/Aspiration Risk : None RINA MONTOYA RN - 05/17/2013 11:05 CDT Nabil Coma Eye Opening Response Nabil : Spontaneously Best Verbal Response [place] : Oriented Best Motor Response Nabil : Obeys simple commands [place] Coma Score : 15 RINA MONTOYA RN - 05/17/2013 11:05 CDT Psycho/Emotional Affect/Behavior : Appropriate Pain Symptoms : Yes RINA MONTOYA RN - 05/17/2013 11:05 CDT Pain Pain Assessment Grid Pain 1 Pain 2 Location : Other: patient experiencing pain left chest rib area that continues to the back Buttock Laterality : Left Bilateral Intensity : 6 6 Time Pattern : Acute, Constant Acute, Constant Onset : Gradual Gradual Quality : Burning, Sharp Aching, Burning, Sharp, Throbbing Pain Radiation : Yes No Radiation Characteristics : to back Aggravating Factors : Breathing, Movement Movement Alleviating Factors : Medication, Repositioning, Rest Medication, Repositioning, Rest Associated Symptoms : Shortness of breath Interventions : Medications, Repositioning, Rest Medications, Repositioning, Rest RINA MONTOYA RN - 05/17/2013 11:05 CDT RINA MONTOYA RN - 05/17/2013 11:05 CDT Gastrointestinal GI Patient Stated Symptoms : None Abdomen Description : Asymmetric Abdomen Palpation : Non-Tender Bowel Movement Last Date : 05/12/2013 CDT Bowel Sounds All Quadrants : Present RINA MONTOYA RN - 05/17/2013 11:05 CDT Nutrition Eating Difficulties : None Appetite : Good RINA MONTOYA Lee RN - 05/17/2013 11:05 CDT Genitourinary Urinary Elimination : Urinary catheter Urine Color : Straw Urine Description : Clear Bladder Distention : Absent THERESE RINA M RN - 05/17/2013 11:05 CDT Urinary Catheter Details Urinary Catheter Clinical Indication : Prolonged immobilization/spinal injury Catheter discontinued : No THERESE RINA M RN - 05/17/2013 11:05 CDT Urinary Catheter Urinary Catheter Activity Type : Assessment Urinary Catheter Insertion Site : Urethral Urinary Catheter Size : 16 Mauritanian Urinary Catheter Type : Indwelling/Continuous Urinary Catheter Balloon Inflation : 10 mL sterile water TAMERA MONTOYAJose A Howard RN - 05/17/2013 11:05 CDT Integumentary Integumentary Patient Stated Symptoms : Bruising Skin Turgor : Elastic Skin Integrity : Intact Mucous Membrane Color : [place] Mucous Membrane Description : Moist THERESE RINA M RN - 05/17/2013 11:05 CDT Skin Abnormality/Location Grid Location : Upper back Laterality : Left, Lateral, Posterior Abnormality : Bruising THERESE RINA M RN - 05/17/2013 11:05 CDT Skin Color : Normal for ethnicity Skin Description : Dry Skin Temperature : Warm RINA MONTOYA Lee RN - 05/17/2013 11:05 CDT Musculoskeletal Musculoskeletal Patient Stated Symptoms : Weakness Activity Tolerance : Extreme distress RINA MONTOYA Lee RN - 05/17/2013 11:05 CDT Peripheral IV Peripheral IV Assess/Intervention Grid Peripheral IV #1 IV Activity : Assessment Date of Insertion : 05/15/2013 CDT IV Site : Antecubital Laterality : Right TAMERA MONTOYAJose A Howard RN - 05/17/2013 11:05 CDT Hendrich II Fall Risk Confusion/Disorientation Hendrich : No Depression Fall Risk Hendrich : No Altered Elimination Fall Risk Hendrich : Yes Dizziness/Vertigo Fall Risk Hendrich : Yes Gender, Male Fall Risk Hendrich : No Prescribed Antiepileptics Hendrich : No Prescribed Benzodiazepines Hendrich : No Rising From Chair Fall Risk Hendrich : Unable to rise without assistance Fall Risk Score Hendrich II : 6 RINA MONTOYA Lee RN - 05/17/2013 11:05 CDT Safe Patient Movement Safe Pt Movement Independent : No Safe Pt Movement Supervision/Minimal Assistance : No Safe Pt Movement Moderate Assistance : Yes Mobility Status : Moderate assistance RINA MONTOYA RN - 05/17/2013 11:05 CDT [facility] Document Id: [id number] CDT!134 Miscellaneous - Nanci Ventura R.N. - 05/16/2013 8:00 PM CDT Adult Activities of Daily Living Adult Activities of Daily Living Entered On: 05/17/2013 1:23 CDT Performed On: 05/16/2013 20:00 CDT by NANCI VENTURA ADLs I Patient Position : Elevate head of bed 30 degrees, Head of bed flat Activity Status ADL : Complete bedrest Antiembolism Device : Sequential Compression Device Antiembolism Device Laterality : Bilateral Range of Motion LUE : Active Range of Motion RUE : Active Range of Motion LLE : Active Range of Motion RLE : Active NANCI VENTURA - 05/17/2013 1:18 CDT ADLs II Hygiene Assistance Grid Foot Care : Maximum assistance Hair Care : Maximum assistance Oral Care : Moderate assistance Tonya Care : Maximum assistance NANCI VENTURA - 05/17/2013 1:18 CDT Standard Safety : NIESHA/SCD/MARGO on per policy, Bed in low position, Call device within reach, ID band check, Rounds every 2 hours, Upper/Half-length side-rails up NANCI VENTURA - 05/17/2013 1:18 CDT ADLs Adult Nutrition Diet Type : Diet -- 05/15/13 21:03:00 CDT, Other, GLUTEN FREE WITH NO NUTS Feeding Assistance : Independent NANCI VENTURA - 05/17/2013 1:24 CDT [facility] Document Id: [id number] CDT!4 Miscellaneous - Nanci Ventura R.N. - 05/16/2013 8:00 PM CDT Adult Ongoing Assessment Adult Ongoing Assessment Entered On: 05/17/2013 1:45 CDT Performed On: 05/16/2013 20:00 CDT by NANCI VENTURA Respiratory Respiratory Patient Stated Symptoms : None Respirations : Unlabored Respiratory Pattern : Regular All Lobes Breath Sounds : Clear, Diminished Cough and Deep Breathe : Done Cough : None NANCI VENTURA 05/17/2013 1:24 CDT Cardiovascular CV Patient Stated Symptoms : None Heart Rhythm : Regular Heart Sounds ICU : S1S2 Capillary Refill : Less than 2 seconds Edema Assessment : Yes Salvatore's Sign : Negative NANCI VENTURA 05/17/2013 1:24 CDT Pulses Grid Radial Pulse, Left : 2+ Normal Radial Pulse, Right : 2+ Normal Dorsalis Pedis Pulse, Left : 2+ Normal Dorsalis Pedis Pulse, Right : 2+ Normal NANCI VENTURA 05/17/2013 1:24 CDT Skin Color : Normal for ethnicity Skin Description : Normal Skin Temperature : Warm NANCI VENTURA 05/17/2013 1:24 CDT Edema Details Edema Detailed Grid Pedal Edema Bilateral : 1+ trace/2mm NANCI VENTURA 05/17/2013 1:24 CDT Neurological Neuro Patient Stated Symptoms : None Orientation : Oriented x 3 Level of Consciousness : Alert Gait : Unable to assess Swallowing Difficulty/Aspiration Risk : None NANCI VENTURA 05/17/2013 1:24 CDT Nabil Coma Eye Opening Response Nabil : Spontaneously Best Verbal Response [place] : Oriented Best Motor Response Nabil : Obeys simple commands [place] Coma Score : 15 NANCI VENTURA 05/17/2013 1:24 CDT Oral Assessment Lips : Smooth, pink, moist, intact Gingiva : [place], smooth, moist, intact Tongue : Smooth, pink, moist, intact Teeth : Clean, no debris Saliva : Thin, watery, plentiful NANCI VENTURA 05/17/2013 1:24 CDT Psycho/Emotional Affect/Behavior : Calm, Cooperative, Appropriate Pain Symptoms : Yes Feels Rested : Yes NANCI VENTURA 05/17/2013 1:24 CDT Coping Grid Uses effective strategies : Yes Indicates sense of control : Yes Stressors perceived within control : Yes Stable mood with appropriate affect : Yes Values/Beliefs incorporated appropriately : Yes NANCI VENTURA 05/17/2013 1:24 CDT Safety Grid Vision, Hearing, Mobility Adequate to Meet Safety Needs : Yes NANCI VENTURA 05/17/2013 1:24 CDT Pain Pain Assessment Grid Pain 1 Location : Other: L hip and L upper rib Laterality : Left Intensity : 7 Acceptable Intensity : 5 Time Pattern : Acute, Constant Onset : Gradual Quality : Sharp Pain Radiation : Yes Radiation Characteristics : Pt stated pain initiates in left lateral hip and radiates to upper, anterior & lateral L ribs Aggravating Factors : Breathing, Movement Alleviating Factors : Immobilization, Medication, Repositioning, Rest Associated Symptoms : None Interventions : Medications, Repositioning, Rest NANCI VENTURA 05/17/2013 1:24 CDT Gastrointestinal GI Patient Stated Symptoms : None Abdomen Description : Rounded, Symmetric Abdomen Palpation : Firm, Non-Tender Bowel Movement Last Date : 05/12/2013 CDT Bowel Sounds All Quadrants : Present Passing Flatus : Yes NANCI VENTURA 05/17/2013 1:24 CDT Genitourinary Patient Stated Symptoms : None Urinary Elimination : Urinary catheter Urine Color : Yellow, Bright, Light Urine Description : Clear Urine Odor : Odorless Bladder Distention : Absent NANCI VENTURA 05/17/2013 1:24 CDT Urinary Catheter Details Urinary Catheter Clinical Indication : Prolonged immobilization/spinal injury Catheter discontinued : No NANCI VENTURA 05/17/2013 1:24 CDT Integumentary Integumentary Patient Stated Symptoms : None Skin Turgor : Elastic Skin Integrity : Intact Mucous Membrane Color : [place] Mucous Membrane Description : Moist NANCI VENTURA 05/17/2013 1:24 CDT Skin Abnormality/Location Grid Location : Upper back Laterality : Left, Lateral, Posterior Abnormality : Bruising NANCI VENTURA 05/17/2013 1:24 CDT Skin Color : Normal for ethnicity Skin Description : Normal Skin Temperature : Warm NANCI VENTURA 05/17/2013 1:24 CDT Robel Sensory Perception Robel : Slightly limited Moisture Robel : Rarely moist Activity Robel : Bedfast Mobility Robel : Very limited Nutrition Robel : Adequate NANCI VENTURA 05/17/2013 1:24 CDT Musculoskeletal Musculoskeletal Patient Stated Symptoms : None NANCI VENTURA - 05/17/2013 1:24 CDT Peripheral IV Peripheral IV Assess/Intervention Grid Peripheral IV #1 IV Activity : Assessment Date of Insertion : 05/15/2013 CDT IV Site : Antecubital Laterality : Right Site Condition : No complications Drainage Description : None Dressing/ Activity : Dry, Intact, Transparent Flow/ Patency : No complications NANCI VENTURA - 05/17/2013 1:24 CDT Hendrich II Fall Risk Confusion/Disorientation Hendrich : No Depression Fall Risk Hendrich : No Altered Elimination Fall Risk Hendrich : Yes Dizziness/Vertigo Fall Risk Hendrich : No Gender, Male Fall Risk Hendrich : No Prescribed Antiepileptics Hendrich : No Prescribed Benzodiazepines Hendrich : No Rising From Chair Fall Risk Hendrich : Unable to rise without assistance Fall Risk Score Hendrich II : 5 NANCI VENTURA - 05/17/2013 1:24 CDT Safe Patient Movement Safe Pt Movement Independent : No Safe Pt Movement Supervision/Minimal Assistance : No Safe Pt Movement Moderate Assistance : No Mobility Status : Maximum/Total Assistance Safe Pt Movement Maximum/Total Assistance : Yes Repositioning Device Recommended : Yes NANCI VENTURA - 05/17/2013 1:24 CDT Source: [email or web address] Document Id: [id number] CDT!139 Miscellaneous - Chung Richardson R.N. - 05/16/2013 5:27 PM CDT Adult Ongoing Assessment Adult Ongoing Assessment Entered On: 05/16/2013 17:33 CDT Performed On: 05/16/2013 17:27 CDT by CHUNG RICHARDSON RN Respiratory Respiratory Patient Stated Symptoms : None Respirations : Unlabored Respiratory Pattern : Regular All Lobes Breath Sounds : Clear Cough and Deep Breathe : Done (Comment: Attempted coughing but unable to complete as patient has significant pain with manuever. Encouraged frequent deep breathing. [CHUNG RICHARDSON RN - 05/16/2013 17:27 CDT] ) Cough : None CHUNG RICHARDSON RN - 05/16/2013 17:27 CDT Cardiovascular CV Patient Stated Symptoms : None Heart Rhythm : Regular Nail Bed Color : [place] Skin Color : [place] Skin Description : Normal Skin Temperature : Warm CHUNG RICHARDSON Emilio LANG - 05/16/2013 17:27 CDT Neurological Neuro Patient Stated Symptoms : Numbness, Tingling (Comment: in feet bilat d/t previous nerve damage; unchanged from prior to admission [CHUNG RICHARDSON Emilio - 05/16/2013 17:27 CDT] ) Orientation : Oriented x 3 Level of Consciousness : Alert Gait : Unable to assess Swallowing Difficulty/Aspiration Risk : None CHUNG RICHARDSON Emilio LANG - 05/16/2013 17:27 CDT [place] Coma Eye Opening Response [place] : Spontaneously Best Verbal Response Nabil : Oriented Best Motor Response [place] : Obeys simple commands Nabil Coma Score : 15 CHUNG RICHARDSON Emilio LANG - 05/16/2013 17:27 CDT Psycho/Emotional Affect/Behavior : Calm, Cooperative, Appropriate Pain Symptoms : Yes RICHARDSONCHUNG Emilio LANG - 05/16/2013 17:27 CDT Pain Pain Assessment Grid Pain 1 Location : Hip Laterality : Left Intensity : 4 Time Pattern : Constant, Intermittent (Comment: Constant level of 3-4 with intermittent increases d/t movement. [LAYLA RICHARDSONLE Emilio LANG - 05/16/2013 17:27 CDT] ) Quality : Aching Pain Radiation : No Aggravating Factors : Movement Alleviating Factors : Medication, Rest Interventions : Heat, Medications, Repositioning, Rest LAYLA RICHARDSONLE Emilio LANG - 05/16/2013 17:27 CDT Gastrointestinal GI Patient Stated Symptoms : None Passing Flatus : Yes RICHARDSON CHUNG Emilio LANG - 05/16/2013 17:27 CDT Genitourinary Patient Stated Symptoms : None Urine Color : Yellow Urine Description : Clear Urine Odor : Odorless LAYLA RICHARDSONLE Emilio LANG - 05/16/2013 17:27 CDT Urinary Catheter Urinary Catheter Insertion Site : Urethral Urinary Catheter Size : 16 [place] Urinary Catheter Type : Indwelling/Continuous Urinary Catheter Balloon Inflation : 10 mL sterile water CHUNG RICHARDSON RN - 05/16/2013 17:27 CDT Integumentary Skin Abnormality/Location Grid Location : Upper back Laterality : Left, Lateral, Posterior Abnormality : Bruising LAYLA RICHARDSONLE Emilio LANG - 05/16/2013 17:27 CDT Skin Color : [place] Skin Description : Normal Skin Temperature : Warm RICHARDSONCHUNG Emilio LANG - 05/16/2013 17:27 CDT Robel Sensory Perception Robel : No impairment Moisture Robel : Rarely moist Activity Robel : Bedfast Mobility Robel : Very limited Nutrition Robel : Adequate Friction and Shear Robel : Potential problem Robel Score : 16 CHUNG RICHARDSON RN - 05/16/2013 17:27 CDT Musculoskeletal Musculoskeletal Patient Stated Symptoms : Joint stiffness Activity Tolerance : Moderate distress CHUNG RICHARDSON RN - 05/16/2013 17:27 CDT Peripheral IV Peripheral IV Assess/Intervention Grid Peripheral IV #1 IV Activity : Assessment Date of Insertion : 05/15/2013 CDT IV Site : Antecubital Laterality : Right Site Condition : No complications Drainage Description : None Infiltration Score : 0 Phlebitis Score : 0 Flow/ Patency : No complications CHUNG RICHARDSON RN - 05/16/2013 17:27 CDT Hendrich II Fall Risk Confusion/Disorientation Hendrich : No Depression Fall Risk Hendrich : No Altered Elimination Fall Risk Hendrich : Yes Dizziness/Vertigo Fall Risk Hendrich : No Gender, Male Fall Risk Hendrich : No Prescribed Antiepileptics Hendrich : Yes Prescribed Benzodiazepines Hendrich : No Rising From Chair Fall Risk Hendrich : Unable to rise without assistance Fall Risk Score Hendrich II : 7 CHUNG RICHARDSON RN - 05/16/2013 17:27 CDT Education General Patient Education Powergrid Topics : Turn/Cough/Deep breathing Individuals Taught : Patient Barriers to Learning : None evident Teaching Method : Demonstration, Explanation Teaching Evaluation : Needs reinforcement, Verbalizes understanding CHUNG RICHARDSON RN - 05/16/2013 17:27 CDT Source: [facility] POWERCHART Document Id: [id number] CDT!104 Miscellaneous - Chung Richardson R.N. - 05/16/2013 12:15 PM CDT Adult Ongoing Assessment Document Has Been Updated Adult Ongoing Assessment Entered On: 05/16/2013 12:56 CDT Performed On: 05/16/2013 12:15 CDT by CHUNG RICHARDSON RN Respiratory Respiratory Patient Stated Symptoms : None Respirations : Unlabored Respiratory Pattern : Regular [place]obes Breath Sounds : Clear CHUNG RICHARDSON RN - 05/16/2013 12:15 CDT Cough and Deep Breathe : Done (Comment: Deep breathing attempted; poor effort from patient d/t pain. [CHUNG RICHARDSON Emilio LANG - 05/16/2013 17:40 CDT] ) CHUNG RICHARDSON Emilio LANG - 05/16/2013 17:40 CDT Cough : None CHUNG RICHARDSON Emilio LANG - 05/16/2013 12:15 CDT Cardiovascular CV Patient Stated Symptoms : None Heart Rhythm : Regular Heart Sounds ICU : S1S2 Nail Bed Color : [place] Capillary Refill : Less than 2 seconds Edema Assessment : Yes Salvatore's Sign : Negative CHUNG RICHARDSON Emilio LANG - 05/16/2013 12:15 CDT Pulses Grid Radial Pulse, Left : 2+ Normal Radial Pulse, Right : 2+ Normal Dorsalis Pedis Pulse, Left : 2+ Normal Dorsalis Pedis Pulse, Right : 2+ Normal CHUNG RICHARDSON Emilio LANG - 05/16/2013 12:15 CDT Skin Color : [place] Skin Description : Normal Skin Temperature : Warm Antiembolism Device : Sequential Compression Device Antiembolism Device Laterality : Bilateral Antiembolism Device Removal Reason : Activity, Skin care CHUNG RICHARDSON Emilio LANG - 05/16/2013 12:15 CDT Edema Details Edema Detailed Grid Ankle Edema Bilateral : 1+ trace/2mm CHUNG RICHARDSON Emilio LANG - 05/16/2013 12:15 CDT Neurological Neuro Patient Stated Symptoms : Numbness, Tingling (Comment: In feet bilat; worse on right per patient. States is from previous nerve damage and is unchanged from baseline. [CHUNG RICHARDSON Emilio LANG - 05/16/2013 17:40 CDT] ) CHUNG RICHARDSON Emilio LANG - 05/16/2013 17:40 CDT Orientation : Oriented x 3 Level of Consciousness : Alert Gait : Unable to assess Swallowing Difficulty/Aspiration Risk : None RICHARDSONCHUNG Emilio LANG - 05/16/2013 12:15 CDT Nabil Coma Eye Opening Response [place] : Spontaneously Best Verbal Response Nabil : Oriented Best Motor Response Nabil : Obeys simple commands [place] Coma Score : 15 RICHARDSONLAYLAAGNES LANG - 05/16/2013 12:15 CDT Oral Assessment Teeth : Clean, no debris RITU CHUNGAGNES LANG - 05/16/2013 12:15 CDT Psycho/Emotional Affect/Behavior : Calm, Cooperative, Appropriate Pain Symptoms : Yes CHUNG RICHARDSON RN 05/16/2013 12:15 CDT Coping Grid Identifies effective strategies : Yes Uses effective strategies : Yes Reports increase in psychological comfort : Yes Indicates sense of control : Yes Stressors perceived within control : Yes Stable mood with appropriate affect : Yes Behaviors indicate use of coping mechanism : Yes Family supportive and involved in care : Yes Values/Beliefs incorporated appropriately : Yes CHUNG RICHARDSON RN - 05/16/2013 12:15 CDT Safety Grid Vision, Hearing, Mobility Adequate to Meet Safety Needs : No CHUNG RICHARDSON RN - 05/16/2013 12:15 CDT Pain Pain Assessment Grid Pain 1 Location : Hip Laterality : Left Intensity : 7 Time Pattern : Intermittent Quality : Aching, Sharp Pain Radiation : No Aggravating Factors : Breathing, Movement, Palpation, Swallowing Alleviating Factors : Medication, Repositioning, Rest Interventions : Medications, Repositioning, Rest CHUNG RICHARDSON RN - 05/16/2013 12:15 CDT Gastrointestinal GI Patient Stated Symptoms : None Abdomen Description : Flat, Symmetric Abdomen Palpation : Non-Tender Bowel Sounds All Quadrants : Present Passing Flatus : Yes CHUNG RICHARDSON RN - 05/16/2013 12:15 CDT Nutrition Eating Difficulties : None Appetite : Good CHUNG RICHARDSON RN - 05/16/2013 12:15 CDT Genitourinary Patient Stated Symptoms : None Urinary Elimination : Urinary catheter CHUNG RICHARDSON RN - 05/16/2013 12:15 CDT Urinary Catheter Details Continued Need for Urinary Catheter : Yes Date/Time Catheter Insertion : 05/15/2013 18:45 CDT Catheter discontinued : No CHUNG RICHARDSON RN - 05/16/2013 12:57 CDT Urinary Catheter Clinical Indication : Prolonged immobilization/spinal injury Urinary Catheter Insertion : During hospital stay CHUNG RICHARDSON RN - 05/16/2013 12:15 CDT Urinary Catheter Urinary Catheter Insertion Site : Urethral Urinary Catheter Size : 16 [place] Urinary Catheter Type : Indwelling/Continuous Urinary Catheter Balloon Inflation : 10 mL sterile water CHUNG RICHARDSON RN - 05/16/2013 12:57 CDT Integumentary Integumentary Patient Stated Symptoms : None Skin Turgor : Elastic Skin Integrity : Intact CHUNG RICHARDSON RN - 05/16/2013 12:57 CDT Skin Abnormality/Location Grid Location : Upper back Laterality : Left, Lateral, Posterior Abnormality : Bruising CHUNG RICHARDSON RN - 05/16/2013 12:57 CDT Skin Color : [place] Skin Description : Normal Skin Temperature : Warm CHUNG RICHARDSON RN - 05/16/2013 12:57 CDT Robel Sensory Perception Robel : No impairment Moisture Robel : Rarely moist Activity Robel : Bedfast Mobility Robel : Very limited Nutrition Robel : Adequate Friction and Shear Robel : Potential problem Robel Score : 16 CHUNG RICHARDSON RN - 05/16/2013 12:57 CDT Musculoskeletal Musculoskeletal Patient Stated Symptoms : None Activity Tolerance : Moderate distress CHUNG RICHARDSON RN - 05/16/2013 12:57 CDT Peripheral IV Peripheral IV Assess/Intervention Grid Peripheral IV #1 IV Activity : Assessment Date of Insertion : 05/15/2013 CDT IV Site : Antecubital Laterality : Right Site Condition : No complications Drainage Description : None Infiltration Score : 0 Phlebitis Score : 0 Dressing/ Activity : Dry, Intact, Transparent Flow/ Patency : No complications CHUNG RICHARDSON RN - 05/16/2013 12:57 CDT Hendrich II Fall Risk Confusion/Disorientation Hendrich : No Depression Fall Risk Hendrich : No Altered Elimination Fall Risk Hendrich : Yes Dizziness/Vertigo Fall Risk Hendrich : No Gender, Male Fall Risk Hendrich : No Prescribed Antiepileptics Hendrich : Yes Prescribed Benzodiazepines Hendrich : No Rising From Chair Fall Risk Hendrich : Unable to rise without assistance Fall Risk Score Hendrich II : 7 CHUNG RICHARDSON RN - 05/16/2013 12:57 CDT Safe Patient Movement Safe Pt Movement Independent : No Safe Pt Movement Supervision/Minimal Assistance : No Safe Pt Movement Moderate Assistance : No Mobility Status : Moderate assistance Safe Pt Movement Maximum/Total Assistance : Yes CHUNG RICHARDSON RN - 05/16/2013 12:57 CDT Education General Patient Education Powergrid Topics : Activity limitations/expectations Individual plan for pain management Individuals Taught : Patient Patient Barriers to Learning : None evident None evident Teaching Method : Explanation Explanation Teaching Evaluation : Verbalizes understanding Verbalizes understanding CHUNG RICHARDSON RN - 05/16/2013 12:57 CDT CHUNG RICHARDSON RN - 05/16/2013 12:57 CDT Source: [email or web address] Document Id: [id number] CDT!5 Miscellaneous - Chung Richardson R.N. - 05/16/2013 12:03 PM CDT Adult Activities of Daily Living Adult Activities of Daily Living Entered On: 05/16/2013 12:10 CDT Performed On: 05/16/2013 12:03 CDT by CHUNG RICHARDSON RN ADLs I Patient Position : Elevate head of bed 30 degrees Activity Status ADL : Complete bedrest Activity Assistance : Moderate 1 person assistance Repositioning/Pressure Reducing Devices : Pillow Antiembolism Device : Sequential Compression Device Antiembolism Device Laterality : Bilateral Antiembolism Device Removal Reason : ADL care, Skin care CHUNG RICHARDSON RN - 05/16/2013 12:03 CDT ADLs II Hygiene Assistance Grid Back Rub : Moderate assistance Bed Bath : Refused Hair Care : Refused Oral Care : Minimum assistance Tonya Care : Minimum assistance CHUNG RICHARDSON RN - 05/16/2013 12:03 CDT [place]anes Catheter Care Done : Yes Catheter discontinued : No Standard Safety : NIESHA/SCD/MARGO on per policy, Bed in low position, Call device within reach, ID band check, Non-Slip footwear, Rounds every 1 hour, Upper/Half- length side-rails up, Wheels locked CHUNG RICHARDSON RN - 05/16/2013 12:03 CDT ADLs Adult Nutrition Diet Type : Diet -- 05/15/13 21:03:00 CDT, Other, GLUTEN FREE WITH NO NUTS Feeding Assistance : Minimum assistance CHUNG RICHARDSON RN - 05/16/2013 12:03 CDT Source: [email or web address] Document Id: [id number] CDT!22 Miscellaneous - Anisha Brower RChelsey - 05/15/2013 10:00 PM CDT Adult Pain Assessment Adult Pain Assessment Entered On: 05/15/2013 22:56 CDT Performed On: 05/15/2013 22:00 CDT by ANISHA BROWER RN Pain Pain Assessment Grid Pain 1 Location : Hip Laterality : Left Intensity : 4 Comment : declines pain meds at this time ANISHA BROWER RN - 05/15/2013 22:56 CDT Source: [email or web address] Document Id: [id number] CDT!8 Miscellaneous - Anisha Brower R.N. - 05/15/2013 9:00 PM CDT Adult Admission Assessment Adult Admission Assessment Entered On: 05/15/2013 22:31 CDT Performed On: 05/15/2013 21:00 CDT by ANISHA BROWER RN Respiratory Respiratory Patient Stated Symptoms : None Respirations : Unlabored Respiratory Pattern : Regular All Lobes Breath Sounds : Clear Cough and Deep Breathe : Done ANISHA BROWER RN - 05/15/2013 22:25 CDT Cardiovascular CV Patient Stated Symptoms : None Heart Rhythm : Regular Heart Sounds ICU : S1S2 Nail Bed Color : [place] Capillary Refill : Less than 2 seconds Edema Assessment : No Pacer : No ANISHA BROWER RN - 05/15/2013 22:25 CDT Pulses Grid Radial Pulse, Left : 2+ Normal Radial Pulse, Right : 2+ Normal Dorsalis Pedis Pulse, Left : 2+ Normal Dorsalis Pedis Pulse, Right : 2+ Normal ANISHA BROWER RN - 05/15/2013 22:25 CDT Skin Color : Normal for ethnicity Skin Description : Normal Skin Temperature : Warm Activity Tolerance : Without distress ANISHA BROWER RN - 05/15/2013 22:25 CDT Neurological Neuro Patient Stated Symptoms : None Orientation : Oriented x 3 Level of Consciousness : Alert Gait : Unable to assess Last Well Time Known : Not applicable ANISHA BROWER RN - 05/15/2013 22:25 CDT [place] Coma Eye Opening Response [place] : Spontaneously Best Verbal Response Nabil : Oriented Best Motor Response [place] : Obeys simple commands Nabil Coma Score : 15 ANISHA BROWER RN - 05/15/2013 22:25 CDT Psycho/Emotional Pain Symptoms : Yes Feels Rested : No ANISHA BROWER RN - 05/15/2013 22:25 CDT Safety Grid Vision, Hearing, Mobility Adequate to Meet Safety Needs : No ANISHA BROWER RN - 05/15/2013 22:25 CDT Pain Pain Assessment Grid Pain 1 Location : Hip Laterality : Left Intensity : 4 Time Pattern : Acute, Intermittent Onset : Sudden Quality : Sharp, Throbbing Pain Radiation : Yes Aggravating Factors : Movement Alleviating Factors : Medication, Rest Associated Symptoms : None Interventions : Repositioning, Rest Comment : declines pain meds at this time ANISHA BROWER RICKEY - 05/15/2013 22:25 CDT Gastrointestinal GI Patient Stated Symptoms : None Abdomen Description : Rounded Abdomen Palpation : Non-Tender, Soft Bowel Sounds All Quadrants : Present Passing Flatus : Yes ANISHA BROWER RICKEY - 05/15/2013 22:25 CDT Genitourinary Patient Stated Symptoms : None Urinary Elimination : Urinary catheter Urine Color : Yellow Urine Description : Clear Bladder Distention : Absent MENDEZ BROWERNadeen Vaughn RN - 05/15/2013 22:25 CDT Urinary Catheter Details Urinary Catheter Clinical Indication : Prolonged immobilization/spinal injury Continued Need for Urinary Catheter : Yes Urinary Catheter Insertion : Prior to admission Date/Time Catheter Insertion : 05/15/2013 19:00 CDT Catheter discontinued : No MENDEZ BROWERNadeen Vaughn RN - 05/15/2013 22:25 CDT Urinary Catheter Urinary Catheter Activity Type : Assessment Urinary Catheter Insertion Site : Urethral Urinary Catheter Size : 16 Maur[place] Urinary Catheter Type : Indwelling/Continuous Urinary Catheter Balloon Inflation : 10 mL sterile water Urinary Catheter Secured : Leg strap Urinary Catheter Drainage System : Dependent drainage bag MENDEZ BROWERNadeen Vaughn RN - 05/15/2013 22:25 CDT Integumentary Integumentary Patient Stated Symptoms : None Skin Turgor : Elastic Skin Integrity : Intact Mucous Membrane Color : [place] Mucous Membrane Description : Moist MENDEZ BROWERN Roderick RICKEY - 05/15/2013 22:25 CDT Skin Abnormality/Location Grid Location : Upper back Laterality : Left, Lateral, Posterior Abnormality : Bruising (Comment: yellow discoloration [MENDEZ BROWERNadeen Vaughn RN - 05/15/2013 22:25 CDT] ) BROWER ANISHANadeen Vaughn RN - 05/15/2013 22:25 CDT Skin Color : Normal for ethnicity Skin Description : Normal Skin Temperature : Warm MENDEZ BROWERN Roderick RICKEY - 05/15/2013 22:25 CDT Robel Sensory Perception Robel : No impairment Moisture Robel : Rarely moist Activity Robel : Bedfast Mobility Robel : Slightly limited Nutrition Robel : Adequate Friction and Shear Robel : Potential problem Robel Score : 17 MENDEZ BROWERN Roderick RICKEY - 05/15/2013 22:25 CDT Musculoskeletal Musculoskeletal Patient Stated Symptoms : Other: joint pain Activity Tolerance : Moderate distress MENDEZ BROWERNadeen Vaughn RN - 05/15/2013 22:25 CDT Peripheral IV Peripheral IV Assess/Intervention Grid Peripheral IV #1 IV Activity : Assessment Date of Insertion : 05/15/2013 CDT IV Site : Antecubital Laterality : Right Site Condition : No complications Drainage Description : None Infiltration Score : 0 Phlebitis Score : 0 ANISHA BROWER RN - 05/15/2013 22:25 CDT Hendrich II Fall Risk Confusion/Disorientation Hendrich : No Depression Fall Risk Hendrich : No Altered Elimination Fall Risk Hendrich : Yes Dizziness/Vertigo Fall Risk Hendrich : No Gender, Male Fall Risk Hendrich : No Prescribed Antiepileptics Hendrich : Yes Prescribed Benzodiazepines Hendrich : No Rising From Chair Fall Risk Hendrich : Unable to rise without assistance Fall Risk Score Hendrich II : 7 ANISHA BROWER RN - 05/15/2013 22:25 CDT Safe Patient Movement Safe Pt Movement Independent : No Safe Pt Movement Supervision/Minimal Assistance : No Safe Pt Movement Moderate Assistance : No Mobility Status : Maximum/Total Assistance Safe Pt Movement Maximum/Total Assistance : Yes ANISHA BROWER RN - 05/15/2013 22:25 CDT Source: [email or web address] Document Id: [id number] CDT!133 Miscellaneous - Anisha Brower R.N. - 05/15/2013 8:56 PM CDT Adult Admission History Adult Admission History Entered On: 05/15/2013 21:01 CDT Performed On: 05/15/2013 20:56 CDT by ANISHA BROWER RN General Info Preferred Name : Kathryn Admitted From : Non-Health Care Facility Point of Origin Mode of Arrival : Cart Accompanied By : Other: ER Nurse Chief Complaint : Hip Pain Preferred Communication Mode : Verbal Information Given By : Patient Languages : Yemeni ANISHA BROWER RN - 05/15/2013 20:56 CDT Nutrition Nutrition Risk Factors by History Adult : None Home Diet : Other: Gluten Free Feeding Ability : Complete independence Eating Difficulties : None Appetite : Good ANISHA BROWER RN - 05/15/2013 20:56 CDT Home Environment Current Daily Living Assistance : None Living Situation : Other: home independently with History of Falls : Last month Home Equipment : None Mobility Assistance Prior to Admission : Independent Current Home Treatments : None Professional Skilled Services : None Special Services and Community Resources : None ANISHA BROWER RN - 05/15/2013 20:56 CDT Dependent Habits Tobacco Use/Currently Using : No Exposure to Tobacco Smoke : Care provider denies smoking in home Smoking Status : Never smoker ANISHA BROWER RN - 05/15/2013 20:56 CDT Tobacco Use Grid Last Use : never ANISHA BROWER RN - 05/15/2013 20:56 CDT Alcohol Use : Yes ANISHA BROWER RN - 05/15/2013 20:56 CDT Caffeine Use Grid Caffeine Use : Current Type : Coffee Frequency : Weekly ANISHA BROWER RN - 05/15/2013 20:56 CDT Recreational Drug Use Grid Drug Use : None ANISAH BROWER RN - 05/15/2013 20:56 CDT AUDIT Tool How Often Do You Have A Drink : 2 to 4 times a month How Many Drinks in a Day When Drinking : 1 or 2 Six or More Drinks On One Occassion : Never Audit Phase 1 Score : 2 ANISHA BROWER RN - 05/15/2013 20:56 CDT Psychosocial Adult Domestic Abuse Concerns : None Concerns About Family Members at Home : No Emotional Support Available : Yes Chronic/Terminal Illness Freq Visits : No Financial Concerns Regarding Hospitalization/Discharge : No Coping : Effective Episcopal Preference : Unknown ANISHA BROWER RN - 05/15/2013 20:56 CDT Advance Directive Advanced Directives : No Advance Directive Additional Information : Yes ANISHA BROWER RN - 05/15/2013 20:56 CDT Educ Needs Patient/Family Education Needs : Activity limitations/expectations, Advance directives, Pain management, Plan of care, Safety, fall ANISHA BROWER RN - 05/15/2013 20:56 CDT Learning Style Preference Adult Grid Patient : Verbal explanation Family : Verbal explanation ANISHA BROWER RN - 05/15/2013 20:56 CDT Source: [facility] POWERCHART Document Id: [id number] CDT!62 Miscellaneous - Anisha Brower R.N. - 05/15/2013 8:35 PM CDT Basic Admission Information Document Has Been Updated Basic Admission Information Entered On: 05/15/2013 20:55 CDT Performed On: 05/15/2013 20:35 CDT by ANISHA BROWER RN Vital Signs Height : 163 cm(Converted to: 5 ft 4 inch(es)) Actual Weight : 78 kg Actual Weight Conversion to Pounds : 171.6 lb Weight Source : Bed scale Height Source : Stated Body Mass Index : 29.36 kg/m2 ANISHA BROWER RN - 05/15/2013 22:55 CDT Temperature Core : 36.4 DegC(Converted to: 97.5 DegF) (LOW) Peripheral Pulse Rate : 83 /min Respiratory Rate : 20 /min Systolic Blood Pressure : 160 mmHg (HI) Diastolic Blood Pressure : 82 mmHg NIBP Mean : 108 mmHg BP Location : Right upper extremity SpO2 : 99 % Oxygen Therapy : Room air ANISHA BROWER RN - 05/15/2013 20:53 CDT Allergy Rule (As Of: 05/15/2013 20:55:59 CDT) Allergies (Active) Glutens Estimated Onset Date: Unspecified ; Created By: PATTI ALMENDAREZ LPN; Reaction Status: Active; Category: Drug ; Substance: Glutens ; Type: Allergy ; Updated By: PATTI ALMENDAREZ LPN; Reviewed Date: 05/15/2013 20:44 CDT Nuts Estimated Onset Date: Unspecified ; Created By: PATTI ALMENDAREZ LPN; Reaction Status: Active ; Category: Food ; Substance: Nuts ; Type: Allergy ; Updated By: PATTI ALMENDAREZ LPN; Reviewed Date: 05/15/2013 20:44 CDT Valuables/Belongings Valuables/Belongings Grid Valuables at Bedside Valuables with Patient Clothes, Patient Valuables : Pants, Shirt, Shoes, Undergarments Jewelry : Earrings Personal Devices : Glasses ANISHA BROWER RN - 05/15/2013 20:53 CDT ANISHA BROWER RN - 05/15/2013 20:53 CDT Room Orientation/Facility Policy Reviewed : Yes Home Medication Disposition : None brought in with patient ANISHA BROWER RN - 05/15/2013 20:53 CDT Source: [facility] POWERCHART Document Id: [id number] CDT!5 documented in this encounter Plan of Treatment Not on filedocumented as of this encounter Visit Diagnoses Not on filedocumented in this encounter
--- OUTSIDE RECORDS SUMMARY | 2022-05-06 13:12 | XMS_ITS | Encounter Summary ---
:[address] [facility] Address [address] [place] [address] Care Team Providers Name Role Phone Unavailable Primary Care Provider Unavailable Encounter Details Date Type Department Care Team Description 03/14/2013 Hospital Encounter [facility] [place] Varma, CYRIL, C.N.P., D. N.P. [address] [place] [phone] (Wo rk) Social History Tobacco Use Types Packs/Day Years Used Date Smoking Tobacco: Never Assessed Sex Assigned at Date Recorded Not on file documented as of this encounter Last Filed Vital Signs Vital Sign Reading Time Taken Comments Blood Pressure 106/62 03/14/2013 3:16 PM CDT Pulse 83 03/14/2013 3:16 PM CDT Temperature - - Respiratory Rate - - Oxygen Saturation - - Inhaled Oxygen Concentration - - Weight 73.2 kg (161 lb 6 oz) 03/14/2013 3:16 PM CDT Height - - Body Mass Index 28.24 12/21/2012 10:12 AM CDT documented in this [...] Progress Notes [place] Varma APRN, C.N.P. - 03/14/2013 3:16 PM CDT [id number] CHIEF COMPLAINT/REASON FOR VISIT Cat scratch. HISTORY OF PRESENT ILLNESS Briana is a 78-year-old female who was playing with her cat yesterday when it accidentally scratched her right forearm. Today she has noted increased swelling, warmth and tenderness. She was working withsome friends who really thought she should be evaluated as progressively throughout the day it seemed to get worse. She denies any fevers or chills. She denies any numbness in her hand. CURRENT MEDICATIONS New reconciled medication is Augmentin 875 by mouth twice daily for 10 days. ALLERGIES Glutens. Nuts. SYSTEMS REVIEW She denies any fevers or chills. No numbness or tingling in her hands or weakness noted in that arm. PHYSICAL EXAMINATION VITAL SIGNS: Her temperature is 36.2, her heart rate 83. Her blood pressure 106/62. GENERAL: Patient appears nondistressed. SKIN: Right arm she does have redness that extends beyond this small scratch approximately 6 cm x 4 cm and oval-shaped diameter redness. It is warm to touch on the site and there is some edema noted atthe site also. IMPRESSION/REPORT/PLAN Cat scratch, early cellulitis. PLAN: We will treat with Augmentin 875 by mouth twice daily for 10 days. I did talk to her about correct administration as well as potential side effects of this medication. I did also fernandez the redness. She is to return if the redness extends beyond the borders of our marking or if she begins having increased infectious symptoms. Aakash Quiroga/joby Electronically Signed By: ALBANIA VARMA RN, COMPUTER EQUIPMENT INSTALLER On: 03/15/2013 05:57 PM Source: [facility] [email or web address] Document Id: [id number] documented in this encounter Miscellaneous Notes Miscellaneous - [place] Varma APRN, C.N.P. - 03/14/2013 3:48 PM CDT Ambulatory Patient Summary [facility] [address] [place] [address] Visit Information Name: BRIANA LEON [facility] Number: [id number] Current Date: 03/14/2013 15:48:18 Physicians Attending Provider: ALBANIA VARMA RN, COMPUTER EQUIPMENT INSTALLER Primary Care Provider: ALBANIA VARMA RN, COMPUTER EQUIPMENT INSTALLER Your Medications Here is a list of your medications. It is important to take your medications as directed. Use a pillbox or chart to help remind you to take your medications. Please let your doctor or nurse know if you have problems taking your medications. Medication/Strength Dose Route Frequency Indications/Special Instructions/Comments/Notes amoxicillin-clavulanate (Augmentin 875 mg-125 mg oral tablet) 1 tab(s) Oral two times a day for 10 Days meloxicam (Mobic 7.5 mg oral tablet) 7.5 mg [...] mg oral tablet, chewable) 125 mg Oral estradiol topical (Vagifem 10 mcg vaginal tablet) 10 mcg Vaginal 2 times a week calcium citrate (Citracal) once a day cycloSPORINE [...] No Appointments found Your Goals/Additional instructions: Source: [facility] POWERCHART Document Id: [id number] Miscellaneous - [place] Varma APRN, C.N.P. - 03/14/2013 3:48 PM CDT Ambulatory Depart Summary [id number] [place] [address] Visit Information Name: BRIANA LEONERINE [facility] Number: [id number] Visit Date: 03/14/2013 15:48:16 Attending Provider: ALBANIA VARMA RN, COMPUTER EQUIPMENT INSTALLER Primary Care Provider: ALBANIA VARMA RN, COMPUTER EQUIPMENT INSTALLER BRIANA LEON has been given the following list of medications: Your Medications It is important to take your medications as directed. Use a pill box or chart to help remind you to take your medications. Please let your doctor or nurse know if you have problems taking your medications. Medication/Strength Dose Route Frequency Indications/Special Instructions/Comments/Notes amoxicillin-clavulanate (Augmentin 875 mg-125 mg oral tablet) 1 tab(s) Oral two times a day for 10 Days meloxicam (Mobic 7.5 mg oral tablet) 7.5 mg [...] mg oral tablet, chewable) 125 mg Oral estradiol topical (Vagifem 10 mcg vaginal tablet) 10 mcg Vaginal 2 times a week calcium citrate (Citracal) once a day cycloSPORINE [...] your provider for clarification. Additional Information: Source: [facility] POWERCHART Document Id: [id number] Miscellgalilea - Lian Noonan L.P.N. - 03/14/2013 3:16 PM CDT Adult Inspector Floor Intake/History Adult Inspector Floor Intake/History Entered On: 03/14/2013 15:20 CDT Performed On: 03/14/2013 15:16 CDT by LIAN NOONAN LPN, RT Intake Chief Complaint : concerned about cat scratch yesterday right forearm looks red and swollen. Temperature Core : 36.2 DegC(Converted to: 97.2 DegF) (LOW) Peripheral Pulse Rate : 83 /min Systolic Blood Pressure : 106 mmHg Diastolic Blood Pressure : 62 mmHg NIBP Mean : 77 mmHg BP Location : Left upper extremity Blood Pressure Cuff Size : Regular SpO2 : 96 % Oxygen Therapy : Room air Actual Weight : 73.2 kg(Converted to: 161 lb 6 oz) Weight Source : Standing scale Dosing Weight Clinic : 73.2 kg LIAN NOONAN LPN, RT - 03/14/2013 15:16 CDT General Info Information Given By : Patient Languages : Welsh LIAN NOONAN LPN, RT - 03/14/2013 15:16 CDT Subjective Pain Symptoms : Yes LIAN NOONAN LPN, RT - 03/14/2013 15:16 CDT Pain Pain Assessment Grid Pain 1 Location : Lower arm Laterality : Right LIAN NOONAN LPN, RT - 03/14/2013 15:16 CDT Dependent Habits Tobacco Use/Currently Using : No Exposure to Tobacco Smoke : Care provider denies smoking in home Smoking Status : Never smoker LIAN NOONAN LPN, RT - 03/14/2013 15:16 CDT Tobacco Use Grid Last Use : never LIAN NOONAN LPN, RT 03/14/2013 15:16 CDT Caffeine Use Grid Caffeine Use : Current Type : Coffee Frequency : Weekly LIAN NOONAN LPN, RT - 03/14/2013 15:16 CDT Recreational Drug Use Grid Drug Use : None LIAN NOONAN LPN, 03/14/2013 15:16 CDT Source: [facility] FlipGiveCHART Document Id: [id number] CDT!40 documented in this encounter Plan of Treatment Not on filedocumented as of this encounter Visit Diagnoses Not on filedocumented in this encounter
--- OUTSIDE RECORDS SUMMARY | 2022-05-06 13:12 | XMS_ITS | Encounter Summary ---
:1935 Author Organization [facility] Address [address] [place] [address] Care Team Providers Name Role Phone Unavailable Primary Care Provider Unavailable Encounter Details Date Type Department Care Team Description 07/04/2013 Hospital Encounter [facility] Mary Cortez, CYRIL, C.N.P., D. N.P. [address] [place] [phone] (Wo rk) Social History Tobacco Use [...]
--- OUTSIDE RECORDS SUMMARY | 2022-05-06 13:12 | XMS_ITS | Encounter Summary ---
:1935 Author Organization [facility] Address [address] [place] [address] Care Team Providers Name Role Phone Unavailable Primary Care Provider Unavailable Encounter Details Date Type Department Care Team Description 09/05/2013 Hospital Encounter HX [facility] [place] Varma APR N, C.N.P., D.N.P. [address] [place], [place] [phone] (Wo rk) Social History [...] Miscellaneous - [place]ia Varma APRN, C.N.P. - 09/05/2013 3:29 PM CST Results Notification From: ALBANIA VARMA RN, DOCK OPERATOR Sent: 09/05/2013 15:29:01 RAILROAD HAND Show up: 09/05/2013 15:29:00 RAILROAD HAND Subject: Results Notification pt informed of results. Will continue conservative treatment for chest wall pain Results: Date Result Type Result Name 09/05/2013 11:[address] Abdomen w/ contrast Source: [facility] POWERCHART Document Id: [id number] Electronically signed by Conversion, [facility] Offset Second Press Operator [id number] at 02/12/2017 12:27 AM CDT documented in this encounter Plan of Treatment Not on filedocumented as of this encounter Visit Diagnoses Not on filedocumented in this encounter
--- OUTSIDE RECORDS SUMMARY | 2022-05-06 13:12 | XMS_ITS | Encounter Summary ---
:1935 Author Organization [facility] Address [address] [place] [address] Care Team Providers Name Role Phone Unavailable Primary Care Provider Unavailable Encounter Details Date Type Department Care Team Description 10/31/2013 Hospital Encounter HX [facility] Mary Varma, CYRIL, C.N.P., D. N.P. [address] [place] [address] (Wo rk) Social History Tobacco Use Types Packs/Day Years Used Date Smoking Tobacco: Never Assessed Sex Assigned at Date Recorded Not on file documented as of this encounter Last Filed Vital Signs Vital Sign Reading Time Taken Comments Blood Pressure 112/60 10/31/2013 11:16 AM MIRROR DEPARTMENT SUPERVISOR Pulse 78 10/31/2013 11:16 AM MIRROR DEPARTMENT SUPERVISOR Temperature - - Respiratory Rate 16 10/31/2013 11:16 AM MIRROR DEPARTMENT SUPERVISOR Oxygen Saturation - - Inhaled Oxygen Concentration - - Weight 73.8 kg (162 lb 11.2 oz) 10/31/2013 11:16 AM MIRROR DEPARTMENT SUPERVISOR Height - - Body Mass Index 29.23 08/25/2013 1:55 PM MIRROR DEPARTMENT SUPERVISOR documented in this encounter Medications at Time [...] H&P Notes Mary Varma APRN, C.N.P. - 10/31/2013 11:12 AM CST [id number] CHIEF COMPLAINT/REASON FOR VISIT Routine general medical exam. HISTORY OF PRESENT ILLNESS 1. Kathryn is a pleasant 78-year-old who comes in today for routine general medical exam. Her health maintenance is pretty much up to date. She does need a lipid profile. She has not had that for quite some time but she is nonfasting today. Will still go ahead and proceed with that. 2. Osteopenia. Patient has a history of osteopenia. Has not had a bone density scan for quite some time. She continues to have pain in her left rib area after a fall that she had greater than 6 months ago. I would like to update that also. 3. Rib pain. Patient on the left side of her rib area she has significant pain and also noted on theanterior chest a significant pain underneath her rib area that causes her significant discomfort. Itis only on palpation to touch. When she takes a deep breath, it does not cause her any significant pain. She has had laboratory studies that were just recently done in August with a CRP being normal.Her alkaline phosphatase was normal and calcium levels were normal. Her CBC was unremarkable. 4. Numbness of her right foot. 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 She has been wearing boots most recently. MEDICATIONS She is on acetaminophen 325mg 2 tablets up to 3 times daily as needed, Rochelle D 1 tablet twice daily as needed, aspirin 81 mg by mouth every other day, Citracal daily, Cosopt ophthalmic solution daily, ferrous sulfate 1 tablet daily, Flonase nasal spray 0.05 at 2 inhalations daily. Gabapentin 300 mg 3 times daily, ibuprofen 600 mg as needed up to 3 times daily with food for pain, multivitamin daily,omeprazole 40 mg by mouth daily. Restasis 1 drop both eyes twice daily, Vagifem 10 mcg twice weekly and vitamin B12 1000 mcg daily. ALLERGIES Glutens and nuts. SYSTEMS REVIEW Patient denies any nausea or vomiting. She has actually had some significant weight gain since beinginactive. The more upper body exercises she does the more pain she has in her ribs. She denies any lightheadedness or dizziness. She does have the numbness in her right foot that is not new. She does have celiac disease but no particular changes in bowel or bladder habits most recently unless related to something that she has eaten. She states that she feels full quite easily. She denies any nausea or vomiting or black-colored stools. The rest of her review of systems was noted to be negative. PAST MEDICAL HISTORY/SURGICAL HISTORY Past medical-surgical history noteworthy for allergic rhinitis, arthritis, atrophic vaginitis, bursitis, cataracts, celiac, chest wall pain, diverticulitis, eye disorder, rib fractures, glaucoma, hiatal hernia, neuritis, and osteopenia. She has had a colonoscopy last in 2010, laminectomy, cataract surgery and repair of a cystocele. Guero has had a mammoplasty reduction, hysterectomy, and hemorrhoidectomy, SOCIAL HISTORY She is , has grown children. She is a non-tobacco and non-alcohol user. Age appropriate counseling and risk factor reduction was provided. FAMILY HISTORY Family history noteworthy. Mother's history was negative. Father with glaucoma. She has a brother who has Down's syndrome, celiac disease and kidney disorder. VITAL SIGNS Her blood pressure is 112/60 with a pulse of 78, weight 73.8 kg. PHYSICAL EXAMINATION GENERAL: Patient appears nondistressed. SKIN: Her skin is warm and dry. There are no lesions of concern. HEENT: Her head is normocephalic. ENT examined and negative. LYMPH: Lymph with no cervical, supraclavicular, axillary or femoral lymphadenopathy. Thyroid assessed and negative. VESSELS: Carotids with normal upstrokes, no bruits. HEART: Heart with regular rate and rhythm. LUNGS: Clear to auscultation. ABDOMEN: Soft. There is no organomegaly. She has significant epigastric and left upper quadrant discomfort to palpation. She does have pain also with palpation of her lower ribs on the left side that extend all the way posteriorly and underneath her breast area. She also has pain underneath that rib area so in her left upper quadrant. LABORATORY: She had some recent laboratory studies done in August which were unremarkable, CBC andelectrolytes. Her liver enzymes were slightly elevated with an AST of 33 and ALT of 49. Lipase of 17.8, her alkaline phosphatase was normal at 66. Her CRP was 0.4. IMAGING: In the past, she had a CT in August also of her abdomen and chest which did show a large hiatal hernia with distal esophageal proximal stomach wall thickening, which direct visualization maybe indicated. Also some subacute left rib fractures. There was some bilateral pulmonary mosaic attenuation potentially due to small airway disease. IMPRESSION/REPORT/PLAN 1. Routine general medical exam. Patient is pretty much up to date. She does get her flu shots annually. We will get a lipid profile also. Age appropriate counseling and risk factor reduction was provided. 2. Continued rib pain. This is concerning. I actually think she has rib pain in the setting of osteopenia and possibly osteoporosis. She is overdue for bone density scan and will also get a vitamin D level in addition. She does have a significant hernia identified and we will set her up for an EGD to be performed with an EKG prior. I would like to have a surgical consult for second opinion with the thought that most of her pain is coming from the hiatal hernia and if that is affecting this versus her rib pain as this is not getting better and progressively worse. Her fall and her rib fractures were6 months ago. 3. Neuritis or radiculopathy. I will do a vitamin B12, but I suspect that her gabapentin will be most helpful for this. Patient agrees with that plan. Patient Education #1 Patient/parent/caregiver is ready to learn. No apparent learning barriers were identified. Learning preferences included listening. Explained diagnosis and treatment plan. Patient/parent/caregiver expressed understanding of the content. Mary Varma, Don.N.P./deandre Electronically Signed By: MARY VARMA RN, [employer] MAINFRAME SYSTEMS PROGRAMMER On: 11/08/2013 05:18 PM Source: [facility] MHSDOLBEYNONRADSYS Document Id: [id number] OR DEPARTMENT SUPERVISOR documented in this encounter Miscellaneous Notes Miscellaneous - Mary Varma APRN, C.N.P. - 10/31/2013 12:05 PM CST General Message Document Contains Addenda Addendum by LINNETTE RICHEY on 31 October 2013 13:08:20 MIRROR DEPARTMENT SUPERVISOR From: LINNETTE RICHEY To: MARY VARMA RN, [employer] MAINFRAME SYSTEMS PROGRAMMER; Sent: 10/31/2013 13:08:20 MIRROR DEPARTMENT SUPERVISOR Subject: RE: General Message VM left for patient to contact registration to schedule appt. with Medicare Nurse. From: MARY VARMA RN, CNP To: LINNETTE RICHEY; Sent: 10/31/2013 12:05:52 MIRROR DEPARTMENT SUPERVISOR Subject: General Message appiontment with Kathryn Boothe (medicare person) Thanks Source: [facility] POWERCHART Document Id: [id number] Electronically signed by Dustin, [facility] Past Due Accounts Clerk [id number] at 02/10/2017 1:31 AM CDT Miscellaneous - Mary Varma APRN, C.N.P. - 10/31/2013 12:04 PM CST Ambulatory Patient Summary [address] [place] [address] Visit Information Name: KATHRYN LEON [facility] Number: [id number] Current Date: 10/31/2013 12:04:46 Physicians Attending Provider: MARY VARMA RN, [employer] MAINFRAME SYSTEMS PROGRAMMER Primary Care Provider: MARY VARMA RN, [employer] MAINFRAME SYSTEMS PROGRAMMER KATHRYN LEON has been given the following [...] 2 times a week ferrous sulfate (ferrous sulfate) Oral, once a day fexofenadine-pseudoephedrine (Rochelle-D 12 Hour 60 mg-120 mg oral tablet, extended release) 1 Tablet(s), Oral, two times a day [employer] [phone] fluticasone nasal (Flonase 0.05 mg/inh nasal spray) 2 Oneida(s), Nostrils(Both), once a day gabapentin (gabapentin 300 [...] the Following Medications: Medication list as of 10-31-13 12:04 Attention: If you have any medications at [...] appointment detail needed. Your Goals/Additional instructions: Source: [facility] POWERCHART Document Id: [id number] OR DEPARTMENT SUPERVISOR Miscellaneous - Mary Varma APRN, C.N.P. - 10/31/2013 12:04 PM CST Ambulatory Depart Summary [address] [address] Visit Information Name: KATHRYN LEON [facility] Number: [id number] Visit Date: 10/31/2013 12:04:43 Attending Provider: MARY VARMA RN, [employer] MAINFRAME SYSTEMS PROGRAMMER Primary Care Provider: MARY VARMA RN, [employer] MAINFRAME SYSTEMS PROGRAMMER KATHRYN LEON has been given the following [...] 2 times a week ferrous sulfate (ferrous sulfate) Oral, once a day fexofenadine-pseudoephedrine (Rochelle-D 12 Hour 60 mg-120 mg oral tablet, extended release) 1 Tablet(s), Oral, two times a day [employer] [phone] fluticasone nasal (Flonase 0.05 mg/inh nasal spray) 2 Oneida(s), Nostrils(Both), once a day gabapentin (gabapentin 300 [...] the Following Medications: Medication list as of 10-31-13 12:04 Attention: If you have any medications at home that are not on this list, DO NOT take them until youcontact your provider for clarification. Give a copy of your medication list to your primary care provider. Update your medication list any time medications or doses are changed and carry your medication list at all times in case of emergency. Additional Information: Source: [facility] POWERCHART Document Id: [id number] OR DEPARTMENT SUPERVISOR Miscellaneous - Sujatha Batista L.PDannN. - 10/31/2013 11:16 AM CST Adult Wireworker Supervisor Intake/History Adult Wireworker Supervisor Intake/History Entered On: 10/31/2013 11:19 MIRROR DEPARTMENT SUPERVISOR Performed On: 10/31/2013 11:16 MIRROR DEPARTMENT SUPERVISOR by SUJATHA BATISTA LPN Intake Chief Complaint : Continue pain in ribs left side Temperature Core : 36.1 DegC(Converted to: 97.0 DegF) (LOW) Peripheral Pulse Rate : 78 /min Respiratory Rate : 16 /min Heart Rhythm : Regular Systolic Blood Pressure : 112 mmHg Diastolic Blood Pressure : 60 mmHg NIBP Mean : 77 mmHg BP Location : Left upper extremity Blood Pressure Cuff Size : Regular Actual Weight : 73.8 kg(Converted to: 162 lb 11 oz) Weight Source : Standing scale Dosing Weight Clinic : 73.8 kg SUJATHA BATISTA LPN - 10/31/2013 11:16 MIRROR DEPARTMENT SUPERVISOR General Info Information Given By : Patient Preferred Communication Mode : Verbal Languages : Arabic SUJATHA BATISTA POLISHER NUMERAL - 10/31/2013 11:16 MIRROR DEPARTMENT SUPERVISOR Subjective Pain Symptoms : Yes SUJATHA BATISTA LPN - 10/31/2013 11:16 MIRROR DEPARTMENT SUPERVISOR Pain Pain Assessment Grid Pain 1 Location : Other: ribs Laterality : Left Intensity : 4 SUJATHA BATISTA LPN - 10/31/2013 11:16 MIRROR DEPARTMENT SUPERVISOR Dependent Habits Tobacco Use/Currently Using : No Exposure to Tobacco Smoke : Care provider denies smoking in home Smoking Status : Never smoker SUJATHA BATISTA LPN - 10/31/2013 11:16 MIRROR DEPARTMENT SUPERVISOR Tobacco Use Grid Last Use : never SUJATHA BATISTA LPN - 10/31/2013 11:16 MIRROR DEPARTMENT SUPERVISOR Caffeine Use Grid Caffeine Use : Current Type : Coffee Frequency : Weekly SUJATHA BATISTA LPN - 10/31/2013 11:16 MIRROR DEPARTMENT SUPERVISOR Recreational Drug Use Grid Drug Use : None SUJATHA BATISTA LPN - 10/31/2013 11:16 MIRROR DEPARTMENT SUPERVISOR Source: [facility] POWERCHART Document Id: [id number] MIRROR DEPARTMENT SUPERVISOR!42 OR DEPARTMENT SUPERVISOR Miscellaneous - Conversion, Historical Provider Ser - 10/26/2013 12:49 PM MIRROR DEPARTMENT SUPERVISOR Med Management Document Contains Addenda Addendum by NIMISHA RIOJAS V on 27 October 2013 14:12:01 MIRROR DEPARTMENT SUPERVISOR called to pharmacy Addendum by MARY VARMA RN, [employer] MAINFRAME SYSTEMS PROGRAMMER on 27 October 2013 14:05:49 MIRROR DEPARTMENT SUPERVISOR From: MARY VARMA RN, [employer] MAINFRAME SYSTEMS PROGRAMMER Sent: 10/27/2013 14:05:47 MIRROR DEPARTMENT SUPERVISOR Subject: RE:Med Management Approved Order:fexofenadine-pseudoephedrine (Rochelle-D 12 Hour 60 mg-120 mg oral tablet, extended release) 1 tab(s) PO 2xDay Qty: 180 tab(s) Refills: 3 Substitutions Allowed Don't Print - [facility] [phone] Signed by MARY VARMA RN, CNP 10/27/2013 14:05:44 From: NIMISHA RIOJAS V To: MARY VARMA RN, IVANA; NIMISHA RIOJAS V; Sent: 10/26/2013 12:49:33 MIRROR DEPARTMENT SUPERVISOR Subject: Med Management On hold pending signature Order:fexofenadine-pseudoephedrine (Rochelle-D 12 Hour 60 mg-120 mg oral tablet, extended release) 1 tab(s) PO 2xDay Qty: 180 tab(s) Refills: 3 Substitutions Allowed Don't Print - called to pharmacy (Rx) [employer] [phone] [facility] Document Id: [id number] documented in this encounter Plan of Treatment Not on filedocumented as of this encounter Procedures Procedure Name Priority Date/Time Associated Diagnosis Comme nts ELECTROPHORESIS, Routine 10/31/2013 2:39 PM Resul ts for this PROTEIN, S MIRROR DEPARTMENT SUPERVISOR procedure are i n the results section. LIPID PANEL, S Routine 10/31/2013 12:29 PM Result s for this MIRROR DEPARTMENT SUPERVISOR procedure are i n the results section. VITAMIN B12 AND Routine 10/31/2013 12:29 PM Resul ts for this FOLATE, S MIRROR DEPARTMENT SUPERVISOR procedure are i n the results section. 25-HYDROXYVITAMIN Routine 10/31/2013 12:29 PM Res ults for this D2 AND D3, S MIRROR DEPARTMENT SUPERVISOR procedure are i n the results section. MAGNESIUM, S Routine 10/31/2013 12:29 PM Results for this MIRROR DEPARTMENT SUPERVISOR procedure are i n the results section. documented in this encounter Results Electrophoresis Protein (10/31/2013 2:39 PM MIRROR DEPARTMENT SUPERVISOR) athologist Signature Total Protein, 7.3 6.3 - 7.9 POWERCHART S GMDL Comment: Test Performed by: [place] [address] [address]: Scot ybarra III, M.D. Albumin, S 3.5 3.4 - 4.7 GMDL POWERCHART Alpha-1 Globulin 0.3 0.1 - 0.3 GMDL POWERCHA RT Alpha-2 Globulin 1.0 0.6 - 1.0 GMDL POWERCHA RT Beta-Globulin 0.9 0.7 - 1.2 GMDL POWERCHART Gamma-Globulin 1.6 0.6 - 1.6 GMDL POWERCHART A/G Ratio 0.94 POWERCHART Impression See Comment POWERCHART Comment: RESULT: No apparent monoclonal protein o n serum electrophoresis. Test Performed by: [address] [address] [address]: Scot ybarra III, M.D. Specimen (Source) Anatomical Collection Method Collection Time Re ceived Time Location / / Volume Laterality Blood 10/31/2013 2:39 PM MIRROR DEPARTMENT SUPERVISOR Mary Varma APRN C.N.P., D.N.P. LAB BLOOD ADD-ON Performing Organization Address City/[facility] Code Phon e Number POWERCHART Magnesium (10/31/2013 12:29 PM MIRROR DEPARTMENT SUPERVISOR) athologist [facility] Magnesium, S 2.0 1.7 - 2.1 POWERCHART MGDL Specimen (Source) Anatomical Collection Method Collection Time Re ceived Time Location / / Volume Laterality Blood 10/31/2013 12:29 PM MIRROR DEPARTMENT SUPERVISOR Mary Varma APRN, C.N.P., D.N.P. LAB BLOOD ADD-ON Performing Organization Address City/[facility]/ZIP Code Phon e Number POWERCHART Vitamin B12 Level and Folate (10/31/2013 12:29 PM MIRROR DEPARTMENT SUPERVISOR) athologist Signature Vitamin B12 [phone] - 420 POWERCHART Assay, S NGL Folate, S >20.0 >=4.0 MCGL POWERCHART Comment: Test Performed by: [facility] [address] [address] [address]: Scot ybarra III, M.D. Specimen (Source) Anatomical Collection Method Collection Time Re ceived Time Location / / Volume Laterality Blood 10/31/2013 12:29 PM MIRROR DEPARTMENT SUPERVISOR Mary Varma APRN C.N.P., D.N.P. LAB BLOOD NON ADD-O N Performing Organization Address City/[facility] Code Phon e Number POWERCHART (ABNORMAL) Lipid Panel (10/31/2013 12:29 PM MIRROR DEPARTMENT SUPERVISOR) athologist Signature Cholesterol, 184 0 - 200 POWERCHART Total MGDL Comment: <200 mg/dL Desirable 200-239 mg/dL Borderline High >239 mg/dL High HX HDL 43 35 - 60 MGDL POWERCHART Comment: > 60 mg/dL Desirable 40 ? 60 mg/dL Low Risk <40 mg/dL Undesirable Triglycerides 218 (H) 9 - 150 MGDL POWERCHART Comment: <150 mg/dL Desirable 150-199 mg/dL Borderline High 200-499 mg/dL High > 499 Very High Calculated LDL 97 (L) 100 - 129 MGDL POWERCHART Total Cholesterol/HDL Ratio 4 PO WERCHART Specimen (Source) Anatomical Collection Method Collection Time Re ceived Time Location / / Volume Laterality Blood 10/31/2013 12:29 PM MIRROR DEPARTMENT SUPERVISOR Mary Varma APRN, C.N.P., D.N.P. LAB BLOOD ADD-ON Performing Organization Address [facility] Code Phon e Number POWERCHART 25-Hydroxyvitamin D2 and D3 (10/31/2013 12:29 PM MIRROR DEPARTMENT SUPERVISOR) athologist Signature HX25 HYDROXY D2 <4.0 NGML POWERCHART 25-Hydroxy D3 49 NGML POWERCHART Vitamin D, S 49 NGML POWERCHART Comment: -- REFERENCE VALUE -- 25-HYDROXY D TOTAL (D2+D3) Optimum level s in the healthy population are 20-50, patients with bone disease may benefit from higher levels within this r mega. Test Performed by: [facility] [address] [place] [address] [address]: Scot ybarra III, M.D. Specimen (Source) Anatomical Collection Method Collection Time Re ceived Time Location / / Volume Laterality Blood 10/31/2013 12:29 PM MIRROR DEPARTMENT SUPERVISOR Mary Varma APRN C.N.P., D.N.P. LAB BLOOD ADD-ON Performing Organization Address City/State/ZIP Code Phon e Number POWERCHART documented in this encounter Visit Diagnoses Not on filedocumented in this encounter
--- OUTSIDE RECORDS SUMMARY | 2022-05-06 13:12 | XMS_ITS | Encounter Summary ---
:1935 Author Organization [facility] Address [address] [place] [address] Care Team Providers Name Role Phone Unavailable Primary Care Provider Unavailable Encounter Details Date Type Department Care Team Description 11/07/2013 Hospital Encounter HX [facility] [place] Varma, SATINDER RN, C.N.P., D.N.P. [address] [address] [phone] (Wo rk) Social History Tobacco Use [...] Miscellaneous - [place] Varma APRN, C.N.P. - 11/08/2013 4:02 PM CST Normal Results Letter 08 November 2013 BRIANA MATHEWZ [address] [place] [id number] Dear BRIANA LEON, I am pleased to report that your results from the following diagnostic test(s) are stable. Your bonedensity scan is also stable. We will not change your regiment for now. Please follow up with us as we discussed during your visit or sooner if you have any concerns. If you have questions or concerns, please do not hesitate to call our office. Result Name Current Result Normal Range BD Hip/Pelvis/Spine 11/01/2013 Cholesterol (mg/dL) 184 10/31/2013 0 - 200 HDL (mg/dL) 43 10/31/2013 35 - 60 Trig (mg/dL) (H) 218 10/31/2013 9 - 150 LDL Calculated (mg/dL) (L) 97 10/31/2013 100 - 129 Chol/HDL Ratio 4 10/31/2013 Magnesium (mg/dL) 2.0 10/31/2013 1.7 - 2.1 Vitamin B12 Lvl-Olivier (ng/L) 778 10/31/2013 180 - 914 - Folate Lvl-Olivier (mcg/L) >20.0 10/31/2013 >=4.0 - Total Protein-Olivier (gm/dL) 7.3 10/31/2013 6.3 - 7.9 - Album Lvl g/dL-Olivier (gm/dL) 3.5 10/31/2013 3.4-4.7 - Alpha 1 Glob-Olivier (gm/dL) 0.3 10/31/2013 0.1-0.3 - Alpha 2 Glob-Olivier (gm/dL) 1.0 10/31/2013 0.6-1.0 - Beta Glob-Olivier (gm/dL) 0.9 10/31/2013 0.7-1.2 - Gamma Glob-Olivier (gm/dL) 1.6 10/31/2013 0.6-1.6 - A/G Ratio-Olivier 0.94 10/31/2013 Pro El Interp-Olivier See Comment 10/31/2013 25-Hydroxy D2-Olivier (ng/mL) <4.0 10/31/2013 25-Hydroxy D3-Olivier (ng/mL) 49 10/31/2013 25-Hydroxy D-Olivier (ng/mL) 49 10/31/2013 FIT/Fecal Occult Bld-Olivier Negative 11/07/2013 Negative - Sincerely, ALBANIA VARMA [address] [place] [address] Electronic Signature Electronically Signed By: ALBANIA VARMA RN, FRUIT VENDOR On: 08 November 2013 This document has images extracted. Source: [facility] POWERCHART Document Id: [id number] Electronically signed by Conversion, [facility] Commercial Green Building Architect [id number] at 02/10/2017 1:31 AM CDT documented in this encounter Plan of Treatment Not on filedocumented as of this encounter Procedures Procedure Name Priority Date/Time Associated Diagnosis Comme nts OCCULT BLOOD, QL, Routine 11/07/2013 7:00 AM Resu lts for this IMMUNOCHEMICAL, F HOSTEL MANAGER procedure are in the results section. documented in this encounter Results Fecal Occult Blood, Colorectal Cancer Screen, Qualitative, Immunochemical (11/07/2013 7:00 AM HOSTEL MANAGER) athologist Signature Occult Blood, Negative Negative POWERCHART Fecal Comment: Negative result. ??This test will not de tect upper gastrointestinal bleeding; the HemoQuant test ([id number])should be ordered if clinically indicated. Test Performed by: [address] [address] [address] [employer]: Scot ybarra III, M.D. Specimen (Source) Anatomical Collection Method Collection Time Re ceived Time Location / / Volume Laterality Stool 11/07/2013 7:00 AM HOSTEL MANAGER [place] Varma APRN, C.N.P., D.N.P. LAB BODY FLUIDS AND STOOLS ORDERABLES Performing Organization Address City/State/ZIP Code Phon e Number POWERCHART documented in this encounter Visit Diagnoses Not on filedocumented in this encounter
--- OUTSIDE RECORDS SUMMARY | 2022-05-06 13:12 | XMS_ITS | Encounter Summary ---
:1935 Author Organization [facility] Address [address] [place] [id number] Care Team Providers Name Role Phone Unavailable Primary Care Provider Unavailable Encounter Details Date Type Department Care Team Description 05/15/2013 Hospital Encounter HX [facility] ED Cristina Villagomez M.D. [address] [place] [address] 021 (Wo rk) Social History Tobacco Use Types Packs/Day Years Used Date Smoking Tobacco: Never Assessed Sex Assigned at Date Recorded Not on file documented as of this encounter Last Filed Vital Signs Vital Sign Reading Time Taken Comments Blood Pressure 147/71 05/15/2013 7:45 PM CDT Pulse 74 05/15/2013 7:45 PM CDT Temperature - - Respiratory Rate 18 05/15/2013 7:45 PM CDT Oxygen Saturation - - Inhaled Oxygen Concentration - - Weight - - Height 163 cm (5' 4.17) 05/15/2013 6:07 PM CDT Body Mass Index - - documented in this encounter Discharge Summaries Faviola Wilkinson RDannN. - 05/15/2013 8:38 PM CDT ED Discharge Instructions [facility] [address] [place] [address] Name: KATHRYN LEON Date of : 1935 12:00 AM Visit Date: 05/15/2013 5:48 PM [facility] Number: [id number] Address: [address] [place] [phone] Primary Care Provider: ALBANIA VARMA RN, SENIOR SUPPORT ANALYST IMPORTANT: [facility] in [place] would like to thank you for allowing us to assist you with your healthcare needs. The following includes patient education materials and informationregarding your injury/illness. Chief Complaint: Hip pain-swelling; FALL-LT HIP PX Follow-Up Instructions: Patient Education Materials: ED Tests and Procedures: Order Status XR Chest 1 view portable Completed XR Hip Left 2 or more views Completed XR Lumbar Spine 2 or 3 views Completed CBC (includes Auto Differential) Completed Basic Metabolic Panel Completed Urinalysis with Microscopic if Indicated Completed XR Chest 1 view portable Discontinued XR Shoulder Left 2 or more views Completed Automated Diff-5 Part Completed Discharge Prescriptions & Home Medications: Medication/Strength Dose Route Frequency Indications/Special Instructions/Comments/Notes ibuprofen (ibuprofen 600 mg oral tablet) See Instructions 1 tab(s) PO every 4 hours oxyCODONE-acetaminophen (oxyCODONE-acetaminophen 5 mg-325 mg oral tablet) 1 tab(s) Oral every 4 hours diazepam (diazepam 10 mg oral tablet) See Instructions Anxiety 1 tab(s) PO at bedtime *nystatin (nystatin 100,000 units/mL oral suspension) 500,000 units [...] capsule) 40 mg Oral once a day *simethicone (Gas-X 125 mg oral tablet, chewable) 125 mg Oral calcium citrate (Citracal) once a day *cycloSPORINE ophthalmic (Restasis) one drop Eyes(Both) every 12 hours ferrous gluconate (ferrous gluconate) Oral two times a day *aspirin (aspirin 81 mg oral tablet) 1 tab(s) Oral every other day cyanocobalamin (Vitamin B-12) 1,000 mcg Oral once a day multivitamin (Multiple Vitamins oral tablet) 1 tab(s) Oral once a day *calcium carbonate (calcium (as carbonate) 600 mg oral [...] until you contact your provider for clarification. Medication Reconciliation: Reconciliation is a process of identifying the most accurate list of all medications a patient is taking - including name, dosage, frequency, and route - and using this list to provide to the patient information about how to take those medications. KATHRYN LEON has reviewed the home medications you have listed with us. Review the following instructions: You have NOT received any prescriptions and you have told us you are not currently taking any home medications You have NOT received any prescriptions. You have been provided a discharge medications list and you may CONTINUE taking your medications as previously prescribed by your regular providers. You have received the listed prescriptions and BEGIN all listed prescriptions as directed. Since you have listed no home medications, please check with your family doctor if you are taking any other medications. You have received the listed prescriptions and BEGIN all listed prescriptions as directed. Youhave been provided a discharge medications list and you may CONTINUE all home medications as previously prescribed by your regular providers. You have received the listed prescriptions and BEGIN all listed prescriptions as directed. Youhave been provided a discharge medications list. The following CHANGES have been made to your medication list; Otherwise, CONTINUE all home medications as previously prescribed by your regular provider. IMPORTANT: We examined and treated you today [...] Party/Relationship Date Time Provider Signature Date Time Medication Reconciliation: Reconciliation is a process of identifying the most accurate list of all medications a patient is taking - including name, dosage, frequency, and route - and using this list to provide to the patient information about how to take those medications. KATHRYN LEON has reviewed the home medications you have listed with us. Review the following instructions: You have NOT received any prescriptions and you have told us you are not currently taking any home medications You have NOT received any prescriptions. You have been provided a discharge medications list and you may CONTINUE taking your medications as previously prescribed by your regular providers. You have received the listed prescriptions and BEGIN all listed prescriptions as directed. Since you have listed no home medications, please check with your family doctor if you are taking any other medications. You have received the listed prescriptions and BEGIN all listed prescriptions as directed. Youhave been provided a discharge medications list and you may CONTINUE all home medications as previously prescribed by your regular providers. You have received the listed prescriptions and BEGIN all listed prescriptions as directed. Youhave been provided a discharge medications list. The following CHANGES have been made to your medication list; Otherwise, CONTINUE all home medications as previously prescribed by your regular provider. IMPORTANT: We examined and treated you today [...] ride home with a responsible alliance party. I KATHRYN LEON , or responsible alliance party have received this information and my questions have been answered. I have discussed any challenges I see with this plan with the nurse or physician. Patient Signature or Responsible Constitution Party/Relationship Date Time Provider Signature Date Time Source: [facility] Document Id: [id number] Faviola Wilkinson R.N. - 05/15/2013 8:38 PM CDT ED Depart Summary [facility] Emergency Department Clinical Discharge Summary PERSON INFORMATION Name KATHRYN LEON Age 78 Years 1935 12:00 AM Sex Female Language Syriac PCP ALBANIA VARMA RN, SENIOR SUPPORT ANALYST Marital Status Visit Id Visit Reason Hip pain-swelling; FALL-LT HIP PX Specialty Enc Type Emergency Med Service Emergency Medicine Referred by Track Group [facility] ED Discharge 05/15/2013 8:38 PM Tracking Id [id number] Checkout 05/15/2013 8:38 PM Checkin 05/15/2013 5:48 PM Acuity Dispo Type Disch/Trans to Critical [facility] Hospital Arrival 05/15/2013 5:48 PM Reg Status LOS 000 02:50 Address: [address] [place] [phone] Comment: PROVIDER INFORMATION Provider Role Provider Contact Time AZAR VILLAGOMEZ MD ED Provider 05/15/13 17:56 KATHRYN ACEVES CHIPPER MACHINE OPERATOR Nurse 05/15/13 18:29 FAVIOLA WILKINSON CHIPPER MACHINE OPERATOR Nurse 05/15/13 19:26 DIAGNOSIS Comment: PATIENT EDUCATION INFORMATION Instructions: Follow up: Source: [facility] POWERCHART Document Id: [id number] documented in this encounter Medications at Time [...] eye daily. documented as of this encounter ED Notes Azar Villagomez M.D. - 05/15/2013 8:43 PM CDT Fall Patient: KATHRYN LEON Age: 78 years Sex: Female : 1935 Author: AZAR VILLAGOMEZ MD Attachments: None Associated Diagnosis: Fall E884.9; Contusion of the chest wall 922.1; Lumbar strain 847.2; Closed rib fracture 807.00 Basic Information Time seen: Immediately upon arrival. History source: Patient, significant other. Arrival mode: Private vehicle, wheelchair. History limitation: None. Additional information: Chief Complaint from Nursing Triage Note : Chief Complaint Description. 05/15/2013 18:07 CDT Chief Complaint Description Slipped and fell in hotel shower on 05/12/2013. Injured lt rib area and lt. hip. Seen in [place] dx[place] with rib fx and back and lt hip contusion. Is having severe pain in hip not controlled with Percocet. History of Present Illness Kathryn was in a motel in [facility], on May 12. She slipped on a ceramic tile floor when getting out of a tub shower, due to a wet floor. She hit the toilet with her left back, and also injured her left chest and shoulder. She was seen in an ED, had xrays of her chest, hip and lumbar spine.She was diagnosed with a rib fracture, single (?). She was sent home on percoset and ibuprofen. She was in too much pain to attend her grand-daughters graduation ceremony. She and her drove back in an SUV over the course of 05/13 and 05/14, stopping at motels each night. She had a wheelchair and walker. Any transfers were severely painful. Sitting in the back seat of the vehicle was tolerable. She and her came directly to the hospital on return to [facility]. She is screaming out in pain with any movement. She states that even when taking two percoset and 600 mg of ibuprofen every 4 hours, she is having difficulty controlling the pain. She has underlying rheumatoid arthritis, not on any disease modifying agents at this time. She has a history of lumbar laminectomy surgeryin the past. The patient presents following fall. The onset was 3 days ago. The occurrence was single episode. The fall was described as slipped. Location: Left posterior trunk back. The character of symptoms is pain. The degree at present is severe. There are exacerbating factors including changing position, jarring and movement. The relieving factor is rest. Risk factors consist of age. The patient's dominant hand is the right hand. Associated symptoms: No bowel movement since fall.. Review of Systems Constitutional symptoms: No fever or no chills. Skin symptoms: Negative except as documented in HPI. Eye symptoms: Vision unchanged and Has chronic drooping of left eyelid. ENMT symptoms: Negative except as documented in HPI. Respiratory symptoms: No shortness of breath or no cough. Cardiovascular symptoms: left posterior lower chest pain from fall and rib fracture. Gastrointestinal symptoms: Constipation and NO BM since 05/11. Genitourinary symptoms: No dysuria. Neurologic symptoms: No headache. Allergy/immunologic symptoms: Seasonal allergies. Additional review of systems information: All other systems reviewed and otherwise negative. Health Status Allergies: . Allergic Reactions (Selected) Severity Not Documented Glutens- No reactions were documented. Nuts- No reactions were documented. Medications: (Selected). Prescriptions Prescribed Rochelle-D 12 Hour 60 mg-120 mg oral tablet, extended release: 1 tab(s), PO, 2xDay, 180 tab(s) Flonase 0.05 mg/inh nasal spray: 2 spray(s), Nostrils(Both), Daily, 3 each Mobic 7.5 mg oral tablet: 7.5 mg, 1 tab(s), PO, 2xDay, 14 tab(s) Vagifem 10 mcg vaginal tablet: 10 mcg, Vaginal, 2xWeek, 26 tab(s) gabapentin 300 mg oral tablet: 900 mg, 3 tab(s), PO, Bedtime, 270 tab(s) nystatin 100,000 units/mL oral suspension: 500,000 units, 5 mL, PO, 4xDay, 140 mL omeprazole 40 mg oral delayed release capsule: 40 mg, 1 cap(s), PO, Daily, 90 cap(s) Documented Medications Documented Citracal: Daily Cosopt ophthalmic solution: 1 drop(s), Daily Gas-X 125 mg oral tablet, chewable: 125 mg, 1 tab(s), PO Multiple Vitamins oral tablet: 1 tab(s), PO, Daily, 30 tab(s) Restasis: one drop, Eyes(Both), q12hr Vitamin B-12: 1,000 mcg, PO, Daily aspirin 81 mg oral tablet: 1 tab(s), PO, Every Other Day, 30 tab(s) calcium (as carbonate) 600 mg oral tablet: 2 tab(s), PO, 2xDay, 180 tab(s) diazepam 10 mg oral tablet: See Instructions, 1 tab(s) PO at bedtime, PRN: Anxiety ferrous gluconate: PO, 2xDay ibuprofen 600 mg oral tablet: See Instructions, 1 tab(s) PO every 4 hours oxyCODONE-acetaminophen 5 mg-325 mg oral tablet: 1 tab(s), PO, q4hr Immunizations: Include Immunizations. Immunizations reviewed. Past Medical/ Family/ Social History Medical history: . Resolved Glaucoma NOS (365.9): Resolved. Surgical history: . Mammogram (089779365) in 2011 at 77 Years. Diagnostic colonoscopy (282943659) in 2010 at 76 Years. Comments: 03/25/2011 08:49 - SAGRARIO NOLAND MD Sigmoid diverticulosis--not inflamed. Laminectomy approach to lumbar spine (287822271) in 2008 at 74 Years. Extracapsular cataract removal with insertion of intraocular lens prosthesis (1 stage procedure), manual or mechanical technique (eg, irrigation and aspiration or phacoemulsification) (76603) in 2006 at 72 Years. Comments: 10/25/2010 20:26 - PATTI ALMENDAREZ CNC WOOD LATHE OPERATOR left Repair of cystocele (782599938) in 1994 at 60 Years. Reduction mammaplasty (55858) in 1981 at 47 Years. Hysterectomy (070650407) in 1966 at 31 Years. Comments: 03/25/2011 08:51 - SAGRARIO NOLAND MD Vaginal Hemorrhoidectomy, internal and external, single column/group; (54172) in 1959 at 24 Years. Family history: . Kidney Brother Glaucoma Father Down syndrome Brother Celiac disease Brother Social history: Drug use: Denies, Occupation: Retired, Family/social situation: . Problem list: . 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 Glaucoma / 70030833 / Confirmed Eye disorder / 379.8 / Confirmed Allergic rhinitis, unspecified / 477.9 / Confirmed Arthritis, rheumatoid* / 714.0 / Confirmed Glaucoma / 365.44 / Confirmed Osteopenia / 733.90 / Confirmed Cataract NOS / 366.9 / Confirmed Celiac Disease / 579.0 / Confirmed Diverticulitis of large intestine / 562.11 / Confirmed Bursitis Hip/Trochanertic / 726.5 / Confirmed Atrophic vaginitis / 627.3 / Confirmed Resolved: Glaucoma NOS / 365.9 Canceled: Other and Unspecified Vaginal Hysterectomy / 68.59 Canceled: Other Repair of Bladder / 57.89 Physical Examination Vital Signs Vital Signs. 05/15/2013 19:45 CDT Systolic Blood Pressure 147 mmHg HI Diastolic Blood Pressure 71 mmHg 05/15/2013 18:07 CDT Temperature Core 37 DegC Peripheral Pulse Rate 80 /min Respiratory Rate 18 /min SpO2 99 % Systolic Blood Pressure 160 mmHg HI Diastolic Blood Pressure 78 mmHg Measurements. 05/15/2013 18:07 CDT Height 163 cm Height Source Stated Estimated Weight 75 kg General: Alert, moderate distress and Cries out in pain with any movement.. Nabil coma scale: Eye response: 4 /4, verbal response: 5 /5, motor response: 6 /6 and Total score:Total score: 15. Neurological: Alert and oriented to person, place, time, and situation, No focal neurological deficit observed and normal speech observed. Skin: Warm and dry. Head: Normocephalic and atraumatic. Neck: Supple, trachea midline and no tenderness. Eye: Pupils are equal, round and reactive to light, normal conjunctiva and Left eyelid chronically droops compared to right. Ears, nose, mouth and throat: Tympanic membranes clear and oral mucosa moist. Cardiovascular: Regular rate and rhythm and No murmur. Respiratory: Lungs are clear to auscultation and Pain with deep inspiration due to rib fracture, back contusion.. Chest wall: On exam: Left, posterior, lateral, inferior, tenderness, ecchymosis, no crepitus, no subcutaneous emphysema and Breast: Scars from breast reduction bilaterally. Back: Lumbar: Left, lateral, moderate, tenderness, ecchymosis. Musculoskeletal: No deformity Gastrointestinal: Soft and Nontender. Genitourinary: Normal external genitalia. Psychiatric: Cooperative. Medical Decision Making Trauma team: no trauma criteria met Differential Diagnosis:Fall, contusion, strain, Known rib fracture by history. Documents reviewed:Prior records, Reviewed ED note from [place]. OrdersFENTANYL 50 mcg IV now. Results review:Lab results : Lab View. 05/15/2013 18:50 CDT Hgb 12.6 g/dL Hct 37.6 % WBC 5.3 x10(9)/L RBC 4.12 x10(12)/L MCV 91.3 fL RDW 12.2 % Platelet 90 x10(9)/L LOW Neutro % 44.9 % Lymph % 37.6 % [place] % 12.0 % Eos % 5.1 % HI Baso % 0.4 % Neutro Absolute 2.39 10(9)/L Lymph Absolute 2.00 x10(9)/L [place] Absolute 0.64 x10(9)/L Eos Absolute 0.27 x10(9)/L Baso Absolute 0.02 x10(9)/L Differential? Auto Sodium Lvl 128.8 mM/L LOW Potassium Lvl 3.9 mmol/L Chloride 97 mmol/L LOW CO2 22.5 mmol/L LOW AGAP 9 mmol/L LOW Glucose Lvl 84 mg/dL Creatinine 0.91 mg/dL EGFR (MDRD) 60 mL/min/1.73m2 EGFR (MDRD) >60 mL/min/1.73m2 BUN 19 mg/dL HI Calcium Lvl 8.9 mg/dL 05/15/2013 18:42 CDT UA Source. Cath Urine UA Color Yellow UA Spec Grav 1.010 UA pH 5.5 UA Protein Negative UA Glucose Negative UA Ketones Negative UA Bili Negative UA Urobilinogen 0.2 UA Blood Negative UA Nitrite Negative UA Leuk Est Negative UA Appear Clear Chest X-Ray:Indications: recent fall with left rib fracture ORIGINAL REPORT - 15-May-2013 20:10:00 Chest; 1 view: Shallow inspiration. Minimal atelectasis or fibrosis in the left lung base. No definite rib fracture. No pneumothorax. . Radiology results:Indications: fall, pain ORIGINAL REPORT - 15-May-2013 20:08:00 Sp Lmb 2vw AP/Lat: No acute fracture or malalignment of the lumbar spine. Probable pars defect bilaterally at L4. Mild anterolithesis of L4 on L5. 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 Mild facet arthropathy most prominent at the L3-L5 levels. , Indications: fall, pain ORIGINAL REPORT - 15-May-2013 20:04:00 Left X-ray hip, 2 views, including AP view of the pelvis: Negative left hip. No fracture or dislocation. Single view of the pelvis is negative for fracture, Indications: fall, shoulder pain ORIGINAL REPORT - 15-May-2013 20:03:00 Left Shoulder 2vw: Negative left shoulder. No fracture or dislocation. . Reexamination/ Reevaluation Time: 05/15/2013 20:50:00 . Vital signs per nurse's notes Course: improving. Pain status: decreased. Assessment: Still experiences significant pain with any movement. Requires assist of at least one with all movement.. Interventions: TORADOL 15 mg IV plus FENTANYL 50 mcg IV.. Impression and Plan Diagnosis Fall E884.9 (Discharge, Emergency medicine, Medical) Contusion of the chest wall 922.1 (Discharge, Emergency medicine, Medical) Lumbar strain 847.2 (Discharge, Emergency medicine, Medical) Closed rib fracture 807.00 (Discharge, Emergency medicine, Medical) Calls-Consults -05/15/2013 21:00:00 , phone call, Notified Dr. Sagrario Rodriguez regarding need for admission for paincontrol. Has failed outpatient treatment with ibuprofen/percoset/valium. At risk to be cared for at home, due to inability to transfer secondary to uncontrolled pain. No BM, will need laxatives to promote bowel movement.. Plan Condition: Unchanged. Disposition: Admit: to Observation Unit. Counseled: Patient, Family, Regarding diagnosis, Regarding diagnostic results, Regarding treatment plan. Notes: Admit for pain control. At risk for developing pneumonia, and needs prompt attention to lack of BM for 3 days. PT/OT consult will be obtained.. Electronically Signed By: AZAR VILLAGOMEZ MD On: 05/15/2013 09:08 PM Source: [facility] POWERCHART Document Id: [id number]} Kathryn Aceves RChelsey - 05/15/2013 6:53 PM CDT ED Pain Assessment ED Pain Assessment Entered On: 05/15/2013 18:53 CDT Performed On: 05/15/2013 18:53 CDT by AKTHRYN ACEVES RN Pain Assessment Pain Symptoms : Yes KATHRYN ACEVES RN - 05/15/2013 18:53 CDT Pain Pain Assessment Grid Pain 1 Location : Hip Laterality : Left Intensity : 3 KATHRYN ACEVES RN - 05/15/2013 18:53 CDT Source: [facility] Document Id: [id number] CDT!9 Jakob Maradiaga R.N. - 05/15/2013 6:45 PM CDT ED Treatments and Procedures ED Treatments and Procedures Entered On: 05/15/2013 19:00 CDT Performed On: 05/15/2013 18:45 CDT by JAKOB MARADIAGA RN Urinary Catheter Urinary Catheter Activity Type : Insert Urinary Catheter Insertion Site : Urethral Urinary Catheter Size : 16 Nigerian Urinary Catheter Type : Indwelling/Continuous Date/Time Catheter Insertion : 05/15/2013 18:45 CDT Urinary Catheter Balloon Inflation : 10 mL sterile water Urinary Catheter Secured : Leg strap Urinary Catheter Drainage System : Dependent drainage bag Urinary Catheter Procedure Response : Expected Urinary Catheter Procedure Tolerance : Good JAKOB MARADIAGA RN - 05/15/2013 19:00 CDT Source: [facility] Document Id: [id number] CDT!12 Kathryn Aceves R.N. - 05/15/2013 6:28 PM CDT ED Nurse Reassess ED Nurse Reassess Entered On: 05/15/2013 18:28 CDT Performed On: 05/15/2013 18:28 CDT by KATHRYN ACEVES RN Pain Assessment Pain Symptoms : Yes Pain Medication Requested : Yes KATHRYN ACEVES RN - 05/15/2013 18:28 CDT Source: [facility] Document Id: [id number] CDT!4 Kathryn Aceves R.N. - 05/15/2013 6:25 PM CDT ED Primary Assessment Document Has Been Updated ED Primary Assessment Entered On: 05/15/2013 18:28 CDT Performed On: 05/15/2013 18:25 CDT by KATHRYN ACEVES RN Reason For Visit (As Of: 05/15/2013 18:28:28 CDT) Problems(Active) Allergic rhinitis, unspecified (ICD-9-CM :477.9 ) Name of Problem: Allergic rhinitis, unspecified ; Onset Date: 1950 ; Recorder: PATTI ALMENDAREZ LPN; Confirmation: Confirmed ; Classification: Nursing ;Code: 477.9 ; Contributor System: [employer] ; Last Updated: 01/21/2011 10:04 CDT ; [...] Nursing ; Code: 714.0 ; Contributor System: [employer] ; Last Updated: 10/25/2010 20:18 RN ORTHOPEDIC ; Life Cycle Date: 10/25/2010 ; Life Cycle Status: Active ; Responsible Provider: PATTI ALMENDAREZ LPN; Vocabulary: ICD-9-CM Atrophic vaginitis (ICD-9-CM :627.3 ) Name of Problem: Atrophic vaginitis ; Onset Date: 07/27/2012 ;Recorder: ALBANIA VARMA RN, CNP; Confirmation: Confirmed ; Classification: Medical ; Code: 627.3 ; Last Updated: 07/27/2012 11:32 RN ORTHOPEDIC ; Life Cycle Status: Active ; Responsible Provider: ALBANIA VARMA CNP; Vocabulary: ICD-9-CM Bursitis Hip/Trochanertic (ICD-9-CM :726.5 ) Name of Problem: Bursitis Hip/Trochanertic ; Onset Date: 10/20/2011 ; Recorder: ALBANIA VARMA RN, CNP; Confirmation: Confirmed ; Classification: Medical ; Code: 726.5 ; Last Updated: 10/20/2011 9:54 RN ORTHOPEDIC ; Life Cycle Status: Active ; Responsible [...] ContributorSystem: [employer] ; Last Updated: 10/25/2010 20:20 RN ORTHOPEDIC ; Life Cycle Date: 10/25/2010 ; Life Cycle Status: Active ; Responsible Provider: PATTI ALMENDAREZ LPN; Vocabulary: ICD-9-CM Diverticulitis of large intestine (ICD-9-CM :562.11 ) Name of Problem: Diverticulitis of large intestine ; Onset Date: 10/28/2010 ; Recorder: ALBANIA VARMA RN, CNP; Confirmation: Confirmed ; Classification: Medical ; Code: 562.11 ; Last Updated: 10/28/2010 16:30 RN ORTHOPEDIC ; Life Cycle Status: Active ; Respo nsible Provider: ALBANIA VARMA RN, CNP; Vocabulary: ICD-9-CM Eye disorder (ICD-9-CM :379.8 ) Name of Problem: Eye disorder ; Recorder: TAMMY ACEVES MD; Confirmation: Confirmed ; Classification: Medical ; Code: 379.8 ; Contributor System: [employer] ; LastUpdated: 01/05/2012 19:00 CDT ; Life Cycle Date: 01/05/2012 ; Life Cycle Status: Active ; Responsible Provider: TAMMY ACEVES MD; Vocabulary: ICD-9-CM ; Comments: 01/21/2012 9:37 - MATTHEW BORDEN CNC WOOD LATHE OPERATOR date unknown Glaucoma (ICD-9-CM :365.44 ) Name of Problem: Glaucoma ; Onset Date: 1986 ; Recorder: PATTI ALMENDAREZ LPN; Confirmation: Confirmed ; Classification: Nursing ; Code: 365.44 ; Contributor System: [employer] ; Last Updated: 01/21/2011 10:05 CDT ; Life Cycle Date: 10/25/2010 ; Life Cycle Status: Active ; Responsible Provider: PATTI ALMENDAREZ LPN; Vocabulary: ICD-9-CM ; Comments: 12/31/2010 12:11 - 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 unknown Glaucoma (SNOMED CT :64035791 ) Name of Problem: Glaucoma ; Recorder: TAMMY ACEVES MD; Confirmation: Confirmed ; Classification: Medical ; Code: 77138981 ; Contributor System: Nusym TechnologyChart ; Last Updated: 01/05/2012 18:52 CDT ; Life Cycle Date: 01/05/2012 ; Life Cycle Status: Active ; ResponsibleProvider: TAMMY ACEVES MD; Vocabulary: SNOMED CT ; Comments: 01/21/2012 9:37 - MATTHEW BORDEN CNC WOOD LATHE OPERATOR date unknown 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 (ICD-9-CM :722.10 ) Name of Problem: 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 ; Recorder: ALBANIA VARMA RN, SENIOR SUPPORT ANALYST; Confirmation: Confirmed ; Classification: Medical ; Code: 722.10 ; Contributor System: PowerChart ; Last Updated: 11/04/2010 9:49 RN ORTHOPEDIC ; Life Cycle Date: 11/04/2010 ; Life Cycle Status: Active ; Responsible Provider: ALBANIA VARMA RN, SENIOR SUPPORT ANALYST; Vocabulary: ICD-9-CM ; Comments: 12/31/201012:11 - 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 unknown Osteopenia (ICD-9-CM :733.90 ) Name of Problem: Osteopenia ; Onset Date: 02/26/1987 ; Recorder: PATTI ALMENDAREZ LPN; Confirmation: Confirmed ; Classification: Nursing ; Code: 733.90 ; Contributor System: PowerChart ; Last Updated: 10/25/2010 20:19 RN ORTHOPEDIC ; Life Cycle Date: 10/25/2010 ; Life Cycle Status: Active ; Responsible Provider: PATTI ALMENDAREZ LPN; Vocabulary: ICD-9-CM Diagnoses(Active) Hip pain-swelling Date: 05/15/2013 ; Diagnosis Type: Reason For Visit ; Confirmation: Complaint of ;Clinical Dx: Hip pain-swelling ; Classification: Medical ; Clinical Service: Emergency medicine ; Code: PNED ; Probability: 0 ; Diagnosis Code: [id number] Triage Chief Complaint Description : see triage note Mode of Arrival ED : Private vehicle Track : Trauma Other Languages : Syriac KATHRYN ACEVES RN - 05/15/2013 18:25 CDT Pain Assessment Pain Symptoms : Yes Pain Medication Requested : Yes KATHRYN ACEVES RN - 05/15/2013 18:25 CDT Respiratory Airway : Patent Respirations : Unlabored Respiratory Pattern : Regular KATHRYN ACEVES - 05/15/2013 18:25 CDT Cardiovascular Heart Rhythm : Regular Skin Color : Normal for ethnicity Skin Description : Dry Skin Temperature : Warm KATHRYN ACEVES - 05/15/2013 18:25 CDT Neurological Last Well Time Known : Not applicable Level of Consciousness : Alert Orientation : Oriented x 3 Characteristics of Speech : Clear KATHRYN ACEVES - 05/15/2013 18:25 CDT ED Psychosocial Affect/Behavior : Calm, Cooperative, Appropriate Domestic Abuse Concerns : None KATHRYN ACEVES RICKEY - 05/15/2013 18:25 CDT Gastrointestinal Nutrition ED : Adequate KATHRYN ACEVES - 05/15/2013 18:25 CDT Musculoskeletal Fall Prevention Education Provided : Yes KATHRYN ACEVES - 05/15/2013 18:25 CDT Social Habits Tobacco Use/Currently Using : No Exposure to Tobacco Smoke : Care provider denies smoking in home Smoking Status : Never smoker KATHRYN ACEVES RICKEY - 05/15/2013 18:25 CDT Tobacco Use Grid Last Use : never KATHRYN ACEVES RICKEY - 05/15/2013 18:25 CDT Alcohol Use Grid Alcohol Use : No KATHRYN ACEVES RICKEY - 05/15/2013 18:25 CDT Recreational Drug Use Grid Drug Use : None KATHRYN ACEVES RICKEY - 05/15/2013 18:25 CDT Peripheral IV Peripheral IV Assess/Intervention Grid Peripheral IV #1 IV Activity : Start, Saline lock Number of Attempts : 1 Date of Insertion : 05/15/2013 CDT IV Site : Antecubital Laterality : Right Catheter Size : 20 Catheter Type : Protective Site Condition : No complications Drainage Description : None KATHRYN ACEVES RN - 05/15/2013 18:25 CDT Source: [facility] POWERCHART Document Id: [id number] CDT!55 Kathryn Aceves R.N. - 05/15/2013 6:07 PM CDT ED Triage Assessment Document Has Been Updated ED Triage Assessment Entered On: 05/15/2013 18:25 CDT Performed On: 05/15/2013 18:07 CDT by KATHRYN ACEVES RN Reason For Visit (As Of: 05/15/2013 18:25:50 CDT) Problems(Active) Allergic rhinitis, unspecified (ICD-9-CM :477.9 ) Name of Problem: Allergic rhinitis, unspecified ; Onset Date: 1950 ; Recorder: PATTI ALMENDAREZ LPN; Confirmation: Confirmed ; Classification: Nursing ;Code: 477.9 ; Contributor System: Mandiant ; Last Updated: 01/21/2011 10:04 CDT ; [...] Nursing ; Code: 714.0 ; Contributor System: [employer]Chart ; Last Updated: 10/25/2010 20:18 RN ORTHOPEDIC ; Life Cycle Date: 10/25/2010 ; Life Cycle Status: Active ; Responsible Provider: PATTI ALMENDAREZ LPN; Vocabulary: ICD-9-CM Atrophic vaginitis (ICD-9-CM :627.3 ) Name of Problem: Atrophic vaginitis ; Onset Date: 07/27/2012 ;Recorder: ALBANIA VARMA RN, SENIOR SUPPORT ANALYST; Confirmation: Confirmed ; Classification: Medical ; Code: 627.3 ; Last Updated: 07/27/2012 11:32 RN ORTHOPEDIC ; Life Cycle Status: Active ; Responsible Provider: ALBANIA VARMA CNP; Vocabulary: ICD-9-CM Bursitis Hip/Trochanertic (ICD-9-CM :726.5 ) Name of Problem: Bursitis Hip/Trochanertic ; Onset Date: 10/20/2011 ; Recorder: ALBANIA VARMA RN, CNP; Confirmation: Confirmed ; Classification: Medical ; Code: 726.5 ; Last Updated: 10/20/2011 9:54 RN ORTHOPEDIC ; Life Cycle Status: Active ; Responsible Provider: ALBANIA VARMA RN, CNP; Vocabulary: ICD-9-CM Cataract NOS (ICD-9-CM :366.9 ) Name of Problem: Cataract NOS ; Onset Date: 1991 ; Recorder: PATTI ALMENDAREZ LPN; Confirmation: Confirmed ; Classification: Nursing ; Code: 366.9 ; Contributor System: [employer] ; Last Updated: 01/21/2011 10:04 CDT ; Life Cycle Date: 10/25/2010 ; Life Cycle Status: Active ; Responsible Provider: PATTI ALMENDAREZ LPN; Vocabulary: ICD-9-CM ; Comments: 12/31/2010 12:11 - PATTI ALMENDAREZ LPN date unknown Celiac Disease (ICD-9-CM :579.0 ) Name of Problem: Celiac Disease ; Onset Date: 02/26/2007 ; Recorder: PATTI ALMENDAREZ LPN; Confirmation: Confirmed ; Classification: Nursing ; Code: 579.0 ; ContributorSystem: [employer] TechnologyChart ; Last Updated: 10/25/2010 20:20 RN ORTHOPEDIC ; Life Cycle Date: 10/25/2010 ; Life Cycle Status: Active ; Responsible Provider: PATTI ALMENDAREZ LPN; Vocabulary: ICD-9-CM Diverticulitis of large intestine (ICD-9-CM :562.11 ) Name of Problem: Diverticulitis of large intestine ; Onset Date: 10/28/2010 ; Recorder: ALBANIA VARMA RN, CNP; Confirmation: Confirmed ; Classification: Medical ; Code: 562.11 ; Last Updated: 10/28/2010 16:30 RN ORTHOPEDIC ; Life Cycle Status: Active ; Respo nsible Provider: ALBANIA VARMA RN, CNP; Vocabulary: ICD-9-CM Eye disorder (ICD-9-CM :379.8 ) Name of Problem: Eye disorder ; Recorder: TAMMY ACEVES MD; Confirmation: Confirmed ; Classification: Medical ; Code: 379.8 ; Contributor System: PowerChart ; LastUpdated: 01/05/2012 19:00 CDT ; Life Cycle Date: 01/05/2012 ; Life Cycle Status: Active ; Responsible Provider: TAMMY ACEVES MD; Vocabulary: ICD-9-CM ; Comments: 01/21/2012 9:37 - MATTHEW BORDEN LPN date unknown Glaucoma (ICD-9-CM :365.44 ) Name of Problem: [...] ALMENDAREZ LPN date unknown Glaucoma (SNOMED CT :49788221 ) Name of Problem: Glaucoma ; Recorder: TAMMY ACEVES MD; Confirmation: Confirmed ; Classification: Medical ; Code: [id number] ; Contributor System: PowerChart ; Last Updated: 01/05/2012 18:52 CDT ; Life Cycle Date: 01/05/2012 ; Life Cycle Status: Active ; ResponsibleProvider: TAMMY ACEVES MD; Vocabulary: SNOMED CT ; Comments: 01/21/2012 9:37 MATTHEW CAAL LPN date unknown 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 (ICD-9-CM :722.10 ) Name of Problem: 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 ; Recorder: ALBANIA VARMA RN, IVANA; Confirmation: Confirmed ; Classification: Medical ; Code: 722.10 ; Contributor System: [employer]Chart ; Last Updated: 11/04/2010 9:49 RN ORTHOPEDIC ; Life Cycle Date: 11/04/2010 ; Life Cycle Status: Active ; Responsible Provider: ALBANIA VARMA RN, IVANA; Vocabulary: ICD-9-CM ; Comments: 12/31/201012:11 - PATTI ALMENDAREZ LPN date unknown Osteopenia (ICD-9-CM :733.90 ) Name of Problem: Osteopenia ; Onset Date: 02/26/1987 ; Recorder: PATTI ALMENDAREZ LPN; Confirmation: Confirmed ; Classification: Nursing ; Code: 733.90 ; Contributor System: Mandiant ; Last Updated: 10/25/2010 20:19 RN ORTHOPEDIC ; Life Cycle Date: 10/25/2010 ; Life Cycle Status: Active ; Responsible Provider: PATTI ALMENDAREZ LPN; Vocabulary: ICD-9-CM Diagnoses(Active) Hip pain-swelling Date: 05/15/2013 ; Diagnosis Type: Reason For Visit ; Confirmation: Complaint of ;Clinical Dx: Hip pain-swelling ; Classification: Medical ; Clinical Service: Emergency medicine ; Code: PNED ; Probability: 0 ; Diagnosis Code: [id number] Triage Chief Complaint Description : Slipped and fell in hotel shower on 05/12/2013. Injured lt rib area and lt. hip. Seen [place] dx. with rib fx and back and lt hip contusion. Is having severe pain inhip not controlled with Percocet. Information Given By : Patient, Spouse Accompanied By : Spouse Mode of Arrival ED : Private vehicle Track : Trauma Other Languages : Syriac Patient Informed of Triage Location : Emergency department Vital Signs Assessed : Yes KATHRYN ACEVES RN - 05/15/2013 18:07 CDT Vital Signs Temperature Core : 37 DegC(Converted to: 98.6 DegF) Peripheral Pulse Rate : 80 /min Respiratory Rate : 18 /min Systolic Blood Pressure : 160 mmHg (HI) Diastolic Blood Pressure : 78 mmHg NIBP Mean : 105 mmHg BP Location : Left upper extremity SpO2 : 99 % Oxygen Therapy : Room air Height : 163 cm(Converted to: 5 ft 4 inch(es)) Height Source : Stated Estimated Weight : 75 kg Estimated Weight Conversion to Pounds : 165 lb KATHRYN ACEVES RN - 05/15/2013 18:07 CDT Pain Assessment Pain Symptoms : Yes KATHRYN ACEVES RN - 05/15/2013 18:07 CDT Pain Pain Assessment Grid Pain 1 Location : Hip Laterality : Left Intensity : 8 Time Pattern : Acute Onset : Sudden Duration : 3 days Quality : Throbbing Interventions : Medications KATHRYN ACEVES RN - 05/15/2013 18:07 CDT ED Physician Notification Time ED Physician Notification Time : 05/15/2013 18:14 CDT KATHRYN ACEVES RN - 05/15/2013 18:07 CDT CAMI CAMI Level 1 : No CAMI Level 2 : No CAMI Level 3 : One KATHRYN ACEVES RN - 05/15/2013 18:07 CDT DCP GENERIC CODE Tracking Group : [facility] ED KATHRYN ACEVES RN - 05/15/2013 18:07 CDT Allergy (As Of: 05/15/2013 18:25:50 CDT) Allergies (Active) Glutens Estimated Onset Date: Unspecified ; Created By: PATTI ALMENDAREZ LPN; Reaction Status: Active; Category: Drug ; Substance: Glutens ; Type: Allergy ; Updated By: PATTI ALMENDAREZ LPN; Reviewed Date: 04/23/2013 10:33 CDT Nuts Estimated Onset Date: Unspecified ; Created By: PATTI ALMENDAREZ LPN; Reaction Status: Active ; Category: Food ; Substance: Nuts ; Type: Allergy ; Updated By: PATTI ALMENDAREZ LPN; Reviewed Date: 04/23/2013 10:33 CDT Immunizations Last Tetanus : > 5 years Pneumovac : Last 5 years Influenza : Last year KATHRYN ACEVES Jose A RN - 05/15/2013 18:07 CDT Source: [facility] Document Id: [id number] CDT!49 documented in this encounter Miscellaneous Notes Miscellaneous - Faviola Wilkinson R.N. - 05/15/2013 8:37 PM CDT Valuables/Belongings Valuables/Belongings Entered On: 05/15/2013 20:37 CDT Performed On: 05/15/2013 20:37 CDT by FAVIOLA WILKINSON RNs/Belongingdaria Home Medication Disposition : None brought in with patient FAVIOLA WILKINSON RN - 05/15/2013 20:37 CDT Source: [facility] Document Id: [id number] CDT!3 Miscellaneous - Faviola Wilkinson R.N. - 05/15/2013 5:48 PM CDT Facility Charge Ticket Facility Charge Ticket Entered On: 05/15/2013 20:38 CDT Performed On: 05/15/2013 17:48 CDT by FAVIOLA WILKINSON RN Facility Charge TVL Level Translated RTF : Hip pain-swelling TVL:4 TVL Level for Facility Charge Ticket : Level 4 Mode of Arrival ED : Private vehicle [facility] Mode of Arrival Interpreted : Standard [facility] Process Management : None Order Management RTF : Laboratory CBC (includes Auto Differential),05/15/13 18:29,AZAR VILLAGOMEZ MD Completed Basic Metabolic Panel,05/15/13 18:29,AZAR VILLAGOMEZ MD Completed Urinalysis with Microscopic if Indicated,05/15/13 18:31,AZAR VILLAGOMEZ MD Completed Automated Diff-5 Part,05/15/13 19:04,AZAR VILLAGOMEZ MD Completed Xray XR Shoulder Left 2 or more views,05/15/13 18:27,AZAR VILLAGOMEZ MD Completed XR Chest 1 view portable,05/15/13 18:28,AZAR VILLAGOMEZ MD Completed XR Hip Left 2 or more views,05/15/13 18:28,AZAR VILLAGOMEZ MD Completed XR Lumbar Spine 2 or 3 views,05/15/13 18:29,AZAR VILLAGOMEZ MD Completed XR Chest 1 view portable,05/15/13 18:26,AZAR VILLAGOMEZ MD Discontinued [facility] Order Management : Lab tests, Xray - plain films 30 Minutes Critical Care : No Nursing Notes RTF : Triage Forms ED Triage Assessment,05/15/13 18:07,KATHRYN ACEVES RN Nursing Notes ED Primary Assessment,05/15/13 18:25,KATHRYN ACEVES RN ED Nurse Reassess,05/15/13 18:28,KATHRYN ACEVES RN ED Pain Assessment,05/15/13 18:53,KETAN, KATHRYN A RN [facility] Nursing Assessment : Triage and 3-5 nursing assessments [facility] Disposition : Admit - Observation, Inpatient, or other Outpatient [facility] Total Points with Diagnosis Control : 14 [facility] Visit Level : 75533 Level 5 FAVIOLA WILKINSON RN - 05/15/2013 20:37 CDT Source: [facility] POWERCHART Document Id: [id number] CDT!15 documented in this encounter Plan of Treatment Not on filedocumented as of this encounter Procedures Procedure Name Priority Date/Time Associated Diagnosis Comme nts AUTOMATED Routine 05/15/2013 6:50 PM Results f or this DIFFERENTIAL, B CDT procedure ar e in the results section. CBC WITH Routine 05/15/2013 6:50 PM Results f or this DIFFERENTIAL, B CDT procedure ar e in the results section. BASIC METABOLIC Routine 05/15/2013 6:50 PM Result s for this PANEL, S/P CDT procedure are i n the results section. URINALYSIS, ROUTINE Routine 05/15/2013 6:42 PM Re sults for this CDT procedure are i n the results section. documented in this encounter Results (ABNORMAL) Automated Differential (05/15/2013 6:50 PM CDT) Analysis Performed At Patho logist Time Signature Neutro % 44.9 42.0 - POWERCHART 77.0 Lymphocytes % 37.6 23.0 - POWERCHART 44.0 HX [place] % 12.0 2.0 - 18.0 POWERCHART HX Eos % 5.1 (H) 1.0 - 5.0 POWERCHART HX Baso % 0.4 0.0 - 1.0 POWERCHART Absolute 2.39 1.70 - POWERCHART Neutrophils 7.00 109L Lymphocytes 2.00 0.90 - POWERCHART 2.90 X109L Monocytes 0.64 0.30 - POWERCHART 0.90 X109L Eosinophils 0.27 0.05 - POWERCHART 0.50 X109L Absolute 0.02 0.00 - POWERCHART Basophil 0.30 X109L Specimen Anatomical Collection Method Collection Time Receive d Time (Source) Location / / Volume Laterality Blood 05/15/2013 6:50 PM 3 6:50 CDT PM CDT Azar Villagomez M.D. LAB BLOOD ADD-ON Performing Organization Address City/State/ZIP Code Phon e Number POWERCHART (ABNORMAL) CBC with Differential (05/15/2013 6:50 PM CDT) P athologist Signature Leukocytes 5.3 3.4 - 10.5 POWERCHART X109L Erythrocytes 4.12 3.90 - POWERCHART 5.03 [id number] Hemoglobin 12.6 12.0 - POWERCHART 15.5 GDL Hematocrit 37.6 34.9 - POWERCHART 44.5 MCV 91.3 82.0 - POWERCHART 98.0 FL HX RDW 12.2 11.9 - POWERCHART 15.5 Platelet Count 90 (L) 150 - 450 POWERCHART X109L Comment: no plt clumps seen HXDifferential? Auto POWERCHART Specimen (Source) Anatomical Collection Method Collection Time Re ceived Time Location / / Volume Laterality Blood 05/15/2013 6:50 PM CDT Azar Villagomez M.D. LAB BLOOD ADD-ON Performing Organization Address City/[facility] Code Phon e Number POWERCHART (ABNORMAL) BMP (Basic Metabolic Panel) (05/15/2013 6:50 PM CDT) Patholo gist Method Time Signature Sodium, S 128.8 (L) 135.0 - POWERCHART 145.0 MML Potassium, S 3.9 3.6 - 4.8 POWERCHART MMOLL Chloride, S 97 (L) 100 - 108 POWERCHART MMOLL CO2 Total 22.5 (L) 23.0 - POWERCHART 29.0 MMOLL BUN (Blood Urea 19 (H) 7 - 18 POWERCHART Nitrogen), S MGDL Creatinine 0.91 0.60 - POWERCHART 1.30 MGDL Calcium, Total, 8.9 8.8 - 10.2 POWERCHART S MGDL Anion Gap 9 (L) 10 - 20 POWERCHART MMOLL HXeGFR (MDRD) 60 >=60 POWERCHART [id number] Comment: A GFR of <60 mL/min is indicative of chr onic kidney disease. (MDRD calculation valid on patients 18-7 0 years.) eGFR Black/ >60 >=60 [id number] POWERCHART Glucose 84 70 - 139 MGDL POWERCHART Specimen (Source) Anatomical Collection Method Collection Time Re ceived Time Location / / Volume Laterality Blood 05/15/2013 6:50 PM CDT Azar Villagomez M.D. LAB BLOOD ADD-ON Performing Organization Address City/State/ZIP Code Phon e Number POWERCHART Urinalysis, Routine (05/15/2013 6:42 PM CDT) [facility] gist Method Time Signature HXUr Color Yellow Yellow POWERCHART Appearance Clear Clear POWERCHART Glucose Negative Negative POWERCHART HXBILIRUBIN Negative Negative POWERCHART Ketones, QL(U) Negative Negative POWERCHART Specific 1.010 1.000 - POWERCHART Baker, POCT, U 1.030 pH, POCT, Urine 5.5 5.0 - 8.0 POWERCHART Protein, Ur, Dip Negative Negative POWERCHART Urobilinogen 0.2 POWERCHART HXNITRITE Negative Negative POWERCHART HXBLOOD Negative Negative POWERCHART Leukocyte Negative Negative POWERCHART Esterase Source Cath Urine POWERCHART Specimen (Source) Anatomical Collection Method Collection Time Re ceived Time Location / / Volume Laterality Urine 05/15/2013 6:42 PM CDT Azar Villagomez M.D. LAB URINE ORDERABLES Performing Organization Address City/State/ZIP Code Phon e Number POWERCHART documented in this encounter Visit Diagnoses Not on filedocumented in this encounter
--- OUTSIDE RECORDS SUMMARY | 2022-05-06 13:12 | XMS_ITS | Encounter Summary ---
:1935 Author Organization [facility] Address [address] [place] [address] Care Team Providers Name Role Phone Unavailable Primary Care Provider Unavailable Encounter Details Date Type Department Care Team Description 11/16/2013 Hospital Encounter HX NO MAPPING Uziel Roman M.D. [address], [place] [address] (Wo rk) Social History Tobacco Use Types Packs/Day Years Used Date Smoking Tobacco: Never Assessed Sex Assigned at Date Recorded Not on file documented as of this encounter Last Filed Vital Signs Vital Sign Reading Time Taken Comments Blood Pressure 126/74 11/16/2013 10:07 AM PIPE PROCESSOR Pulse 74 11/16/2013 10:07 AM PIPE PROCESSOR Temperature - - Respiratory Rate 16 11/16/2013 10:07 AM PIPE PROCESSOR Oxygen Saturation - - Inhaled Oxygen Concentration - - Weight 73.4 kg (161 lb 13.1 oz) 11/16/2013 10:07 AM PIPE PROCESSOR Height - - Body Mass Index 29.11 11/02/2013 2:50 PM PIPE PROCESSOR documented in this encounter Medications at Time [...] documented as of this encounter Consult Notes Uziel Roman M.D. - 11/16/2013 10:01 AM CST [id number] CHIEF COMPLAINT/REASON FOR VISIT Epigastric pain and hiatal hernia and recent rib fractures. HISTORY OF PRESENT ILLNESS Patient is a 78-year-old female who had an EGD in January2007 for sprue, was found have a large hernia at the same time. She has been on omeprazole for a while. She takes 40 mg once daily after having a small amount of food. This does mostly control her symptoms although if she skips a dose she will have significant heartburn fairly bad. She has some swallowing trouble that is new over the last year. Food will sometimes get stuck. She has noticed that toast does it but other than that she has not been able to identify specific foods. She sometimes has to go to the bathroom and force it out. She has been having some epigastric subxiphoid pain but she is not sure if it is related to recent rib fracture.She fell while traveling and broke 3 ribs on the left side posteriorly. This was the last day of April 2013. Because of the prolonged discomfort she underwent CT scan at the end of August that showed the 3 posterior left rib fractures 8 through 10 with moderately sized hiatal hernia and some thickening of the esophageal wall near the junction with the stomach. MEDICATIONS Reviewed. PAST MEDICAL/SURGICAL HISTORY Reviewed. VITAL SIGNS Per the EMR. PHYSICAL EXAMINATION Elderly female, looks younger than her stated age. Alert, oriented, appropriate, polite. She did not disrobe for the exam, so we did not bring a foxpro developer in. Chest wall, she is mildly tender both subcostal regions from the rib cartilage down into the upper abdomen. She has some modest tenderness posterior laterally in the left rib region. Her costal margin is slightly narrow. She seems to have increased AP diameter of her torso. She had some mild to modestleft upper quadrant subxiphoid tenderness that did not extend to the right side. IMPRESSION/REPORT/PLAN She has some chest wall pain that is residual but fairly mild but I do not think it is related to the epigastric pain and tenderness which I believe is more hiatal hernia and reflux esophagitis. Given these findings on CT think diagnostic upper endoscopy is warranted with biopsy and possible dilation due to the swallowing trouble. In the meantime I will have her take omeprazole on an empty stomach and eat something 30 to 45 minutes later. She is going to be gone next week as are we so we will do theupper endoscopy in 2 weeks. We discussed risks, benefits, alternatives in detail. We did offer to refer her back to [place]. She has had previous scope there 7 years ago but she preferred to have it done l ocally if possible. Uziel Roman M.D./kelly cc: Aakash Quiroga Electronically Signed By: UZIEL ROMAN MD On: 11/16/2013 02:32 PM Source: [facility] MHSDOLBEYNONRADSYS Document Id: [id number] PROCESSOR documented in this encounter Miscellaneous Notes Miscellaneous - Uziel Roman M.D. - 11/16/2013 10:47 AM CST Ambulatory Patient Summary [facility] [id number] [place], [place] [id number] Visit Information Name: BRIANA LEON [facility] Number: [id number] Current Date: 11/16/2013 10:47:36 Physicians Attending Provider: UZIEL ROMAN MD Primary Care Provider: ALBANIA VARMA RN, INSTRUCTOR [place] BRIANA LEON has been given the following [...] 1 Tablet(s), Oral, two times a day [facility] [phone] fluticasone nasal (Flonase 0.05 mg/inh nasal spray) 2 Kaufman(s), Nostrils(Both), once a day gabapentin (gabapentin 300 [...] the Following Medications: Medication list as of 11-16-13 10:47 Attention: If you have any medications at [...] Upcoming Appointments Date Time Location Reason Provider 11/30/2013 08:45 [facility] Scope Room hiatal herina, with biopsy and probable dilation, Per Dr. Roman [facility] Scope Rm 12/05/2013 10:00 [facility] Family Med motivation exercises [facility] Health Building Components Designer Attention: Contact your local Clinic if further appointment detail needed. Your Goals/Additional instructions: Source: [facility] POWERCHART Document Id: [id number] PROCESSOR Miscellaneous - Uziel Roman M.D. - 11/16/2013 10:47 AM CST Ambulatory Discharge Medication List [address] [id number] Visit Information Name: BRIANA LEON [facility] Number: [id number] Visit Date: 11/16/2013 10:47:32 Attending Provider: UZIEL ROMAN MD Primary Care Provider: ALBANIA VARMA RN, INSTRUCTOR [place] BRIANA LEON has been given the following [...] 1 Tablet(s), Oral, two times a day [facility] [phone] fluticasone nasal (Flonase 0.05 mg/inh nasal spray) 2 Kaufman(s), Nostrils(Both), once a day gabapentin (gabapentin 300 [...] the Following Medications: Medication list as of 11-16-13 10:47 Attention: If you have any medications at home that are not on this list, DO NOT take them until youcontact your provider for clarification. Give a copy of your medication list to your primary care provider. Update your medication list any time medications or doses are changed and carry your medication list at all times in case of emergency. Additional Information: Source: [facility] POWERCHART Document Id: [id number] PROCESSOR Miscellaneous - Chantal Aceves R.N. - 11/16/2013 10:07 AM CST Adult Trumpet Teacher Intake/History Adult Trumpet Teacher Intake/History Entered On: 11/16/2013 10:11 PIPE PROCESSOR Performed On: 11/16/2013 10:07 PIPE PROCESSOR by CHANTAL ACEVES big data admin Chief Complaint : left upper abd pain, since fall last apr. ribs fractured Temperature Core : 36.6 DegC(Converted to: 97.9 DegF) Peripheral Pulse Rate : 74 /min Respiratory Rate : 16 /min Heart Rhythm : Regular Systolic Blood Pressure : 126 mmHg Diastolic Blood Pressure : 74 mmHg NIBP Mean : 91 mmHg BP Location : Right upper extremity Blood Pressure Cuff Size : Regular SpO2 : 99 % Actual Weight : 73.4 kg(Converted to: 161 lb 13 oz) Dosing Weight Clinic : 73.4 kg CHANTAL ACEVES RN - 11/16/2013 10:07 PIPE PROCESSOR General Info Information Given By : Patient Preferred Communication Mode : Verbal Languages : Thai CHANTAL ACEVES RN - 11/16/2013 10:07 PIPE PROCESSOR Subjective Pain Symptoms : Yes CHANTAL ACEVES RN - 11/16/2013 10:07 PIPE PROCESSOR Pain Pain Assessment Grid Pain 1 Location : Abdomen Laterality : Left CHANTAL ACEVES RN - 11/16/2013 10:07 PIPE PROCESSOR Dependent Habits Tobacco Use/Currently Using : No Exposure to Tobacco Smoke : Care provider denies smoking in home Smoking Status : Never smoker CHANTAL ACEVES RN - 11/16/2013 10:07 PIPE PROCESSOR Tobacco Use Grid Last Use : never CHANTAL ACEVES RN - 11/16/2013 10:07 PIPE PROCESSOR Caffeine Use Grid Caffeine Use : Current Type : Coffee Frequency : Weekly CHANTAL ACEVES RN - 11/16/2013 10:07 PIPE PROCESSOR Recreational Drug Use Grid Drug Use : None CHANTAL ACEVES RN - 11/16/2013 10:07 PIPE PROCESSOR Source: [facility] POWERCHART Document Id: [id number] PIPE PROCESSOR!41 PROCESSOR documented in this encounter Plan of Treatment Not on filedocumented as of this encounter Visit Diagnoses Not on filedocumented in this encounter
--- OUTSIDE RECORDS SUMMARY | 2022-05-06 13:12 | XMS_ITS | Encounter Summary ---
:1935 Author Organization [facility] Address [address] [place] [address] Care Team Providers Name Role Phone Unavailable Primary Care Provider Unavailable Encounter Details Date Type Department Care Team Description 12/06/2012 Hospital Encounter HX [facility] Mary Varma, CYRIL, C.N.P., D. N.P. [address] [place] [address] (Wo rk) Social History Tobacco Use Types Packs/Day Years Used Date Smoking Tobacco: Never Assessed Sex Assigned at Date Recorded Not on file documented as of this encounter Last Filed Vital Signs Vital Sign Reading Time Taken Comments Blood Pressure 124/68 12/06/2012 10:54 AM CDT Pulse 78 12/06/2012 10:54 AM CDT Temperature - - Respiratory Rate 16 12/06/2012 10:54 AM CDT Oxygen Saturation - - Inhaled Oxygen Concentration - - Weight 72.4 kg (159 lb 9.8 oz) 12/06/2012 10:54 AM CDT Height - - Body Mass Index 27.59 06/17/2012 10:00 AM CDT documented in this encounter Medications [...] Progress Notes Mary Varma APRN, C.N.P. - 12/06/2012 10:46 AM CDT [id number] CHIEF COMPLAINT/REASON FOR VISIT Pain. 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 She comes in concerned that she is having pain that came on suddenly on Thursday without any injury or fall. No rigorous work prior but having right low back pain that radiated down her leg, mostly noted radiating down the side of her leg. She does not have any pain with laying down. The pain is an achy type pain. It lasted for approximately 30 minutes and then will improve with movement and then reoccur. She describes it as a very significant stiffness. She hasbeen putting heat on it. She states that it hurts to roll on her right hip. She describes the pain an 8/10 at times causing her significant discomfort. She does not have any current tramadol and statesin the past she has used that for pain. CURRENT MEDICATIONS New reconciled medication: Gabapentin increasing to an additional 300 mg tablet at breakfast and at noon in addition to the 900 at bedtime. Also adding tramadol 50 mg 1 tablet every 4 hours on an as needed basis and Mobic 7.5 mg twice daily for a total of 2 weeks. ALLERGIES Glutens and nuts. SYSTEMS REVIEW The patient has pain radiating down her leg but she denies any numbness or tingling in her foot or her leg. VITAL SIGNS Please see the EMR for those details. PHYSICAL EXAMINATION GENERAL: The patient appears nondistressed. SKIN: Warm and dry. MUSCULOSKELETAL: Low back, on the lower lumbar as well as sacrum, the patient has no pain to palpation. She does have significant pain in her right bursa area as well as her right buttock area. Her radiculopathy follows the nerve pathway of L5. IMPRESSION/REPORT/PLAN 1. Right hip trochanter bursitis. 2. Sciatica neuralgia. PLAN: Did discuss with patient we are going to try to decrease the inflammation using Mobic 7.5 mg twice daily with food, watch for GI upset. We will try that for 2 weeks. She can use tramadol for additional pain that is not well controlled. I am going to increase her gabapentin to an additional 2 tablets in the daytime and she will report if no improvement or any worsening symptoms. Patient Education Ready to learn No apparent learning barriers were identified Learning preferences include listening Explained diagnosis and treatment plan Patient/Child/Caregiver expressed understanding of the content Aakash Quiroga/bucky Electronically Signed By: MARY VARMA RN, INCOMING FREIGHT CLERK On: 12/07/2012 07:42 PM Source: [facility] MHSDOLBEYNONRADSYS Document Id: [id number] documented in this encounter Miscellaneous Notes Miscellaneous - Conversion, Historical Provider Ser - 12/08/2012 11:47 AM CDT not better Document Contains Addenda Addendum by NIMISHA RIOJAS V on 09 December 2012 08:19:16 CDT Pt updated Addendum by MARY VARMA RN, INCOMING FREIGHT CLERK on 08 December 2012 16:25:24 CDT From: MARY VARMA RN, INCOMING FREIGHT CLERK To: NIMISHA RIOJAS V; Sent: 12/08/2012 16:25:24 CDT Subject: RE: not better ordered. thanks. Addendum by NIMISHA RIOJAS V on 08 December 2012 12:23:25 CDT From: NIMISHA RIOJAS V To: MARY VARMA RN, INCOMING FREIGHT CLERK; Sent: 12/08/2012 12:23:25 CDT Subject: RE: not better Pt updated. She doesn't have any leg numbness, so you can order the PT eval Addendum by MARY VARMA RN, INCOMING FREIGHT CLERK on 08 December 2012 12:15:59 CDT From: MARY VARMA RN, INCOMING FREIGHT CLERK To: NIMISHA RIOJAS V; Sent: 12/08/2012 12:15:59 CDT ! Subject: RE: not better my guess is that the increased gabapentin is making her dizzy. LEts have her hold the day time doses. Because she isn't feeling better, I think we should have her evaluated by PT unless she has new neuro symptoms (such as new numbness in leg). Continue with Mobic with food. Come back for eval if not better or ER if worse. Thanks From: NIMISHA RIOJAS V To: MARY VARMA RN, INCOMING FREIGHT CLERK; SUJATHA BATISTA LPN; Sent: 12/08/2012 11:47:02 CDT Subject: not better Pt LVM on Triage line which said she was talking with Sujatha & got disconnected. Pt reports she was seen Thursday & was to call today with update. Indicated she is not better & is so dizzy she can't get up. [phone] is her call back # Source: [facility] POWERCHART Document Id: [id number] Miscellaneous - Mary Varma APRN, C.N.P. - 12/06/2012 11:47 AM CDT Ambulatory Patient Summary [address] [address] Visit Information Name: KATHRYN LEON [facility] Number: [id number] Current Date: 12/06/2012 11:47:48 Physicians Attending Provider: MARY VARMA RN, IVANA Primary Care Provider: MARY VARMA RN, INCOMING FREIGHT CLERK Your Medications Here is a list of your medications. It is important to take your medications as directed. Use a pillbox or chart to help remind you to take your medications. Please let your doctor or nurse know if you have problems taking your medications. Medication/Strength Dose Route Frequency Indications/Special Instructions/Comments meloxicam (Mobic 7.5 mg oral tablet) 7.5 mg Oral two times a day gabapentin (gabapentin 300 mg oral tablet) 900 mg Oral once a day (at bedtime) for 2 wks increase to1 tab in morning, and 1 at noon with the 3 at bedtime tramadol (tramadol 50 mg oral tablet) 50 mg Oral every 4 hours as needed for Pain fluticasone nasal (Flonase 0.05 mg/inh nasal spray) [...] No Appointments found Your Goals/Additional instructions: Source: [facility] POWERCHART Document Id: [id number] Miscellaneous - Mary Varma APRN, C.N.P. - 12/06/2012 11:47 AM CDT Ambulatory Depart Summary [address] [address] Visit Information Name: KATHRYN LEON [facility] Number: [id number] Visit Date: 12/06/2012 11:47:46 Attending Provider: MARY VARMA RN, INCOMING FREIGHT CLERK Primary Care Provider: MARY VARMA RN, INCOMING FREIGHT CLERK KATHRYN LEON has been given the following list of medications: Your Medications It is important to take your medications as directed. Use a pill box or chart to help remind you to take your medications. Please let your doctor or nurse know if you have problems taking your medications. Medication/Strength Dose Route Frequency Indications/Special Instructions/Comments meloxicam (Mobic 7.5 mg oral tablet) 7.5 mg Oral two times a day gabapentin (gabapentin 300 mg oral tablet) 900 mg Oral once a day (at bedtime) for 2 wks increase to1 tab in morning, and 1 at noon with the 3 at bedtime tramadol (tramadol 50 mg oral tablet) 50 mg Oral every 4 hours as needed for Pain fluticasone nasal (Flonase 0.05 mg/inh nasal spray) [...] your provider for clarification. Additional Information: Source: [facility] POWERCHART Document Id: [id number] Miscellaneous - Sujatha Batista L.PDannN. - 12/06/2012 10:54 AM CDT Adult Rocket Engine Tester Intake/History Adult Rocket Engine Tester Intake/History Entered On: 12/06/2012 10:58 CDT Performed On: 12/06/2012 10:54 CDT by SUJATHA BATISTA LPN Intake Chief Complaint : Righ lower back pain goes down leg started thursday Temperature Core : 36.2DegC(Converted to: 97.2DegF) (LOW) Peripheral Pulse Rate : 78/min Respiratory Rate : 16/min Heart Rhythm : Regular Systolic Blood Pressure : 124mmHg Diastolic Blood Pressure : 68mmHg NIBP Mean : 87mmHg BP Location : Right upper extremity Blood Pressure Cuff Size : Regular Actual Weight : 72.4kg(Converted to: 159lb 10oz) Weight Source : Standing scale Dosing Weight Clinic : 72.40kg JOANNA BATISTAYUSUF Galicia LPN 12/06/2012 10:54 CDT General Info Information Given By : Patient Preferred Communication Mode : Verbal Languages : Macedonian JOANNA BATISTAYUSUF Galicia LPN - 12/06/2012 10:54 CDT Subjective Pain Symptoms : Yes ISABELASUJATHA LPN 12/06/2012 10:54 CDT Pain Pain Assessment Grid Pain 1 Location : Lower back Laterality : Right Intensity : 9 ISABELA SUJATHAYUSUF Galicia LPN 12/06/2012 10:54 CDT Dependent Habits Tobacco Use/Currently Using : No Exposure to Tobacco Smoke : Care provider denies smoking in home Smoking Status : Never smoker ISABELA SUJATHA Galicia LPN 12/06/2012 10:54 CDT Tobacco Use Grid Last Use : never ISABELA SUJATHAYUSUF Galicia LPN 12/06/2012 10:54 CDT Alcohol Use : Yes ISABELA SUJATHA Galicia LPN 12/06/2012 10:54 CDT Caffeine Use Grid Caffeine Use : Current Type : Coffee Frequency : Weekly BATISTASUJATHA PARKER MRP CONTROLLER 12/06/2012 10:54 CDT Recreational Drug Use Grid Drug Use : None BATISTA, SUJATHA Galicia LPN 12/06/2012 10:54 CDT Allergy Allergies (Active) Glutens Estimated Onset Date: Unspecified ; Created By: PATTI ALMENDAREZ LPN; Reaction Status: Active; Category: Drug ; Substance: Glutens ; Type: Allergy ; Updated By: PATTI ALMENDAREZ LPN; Reviewed Date: 11/02/2012 11:53 HYDRAULIC TESTER Nuts Estimated Onset Date: Unspecified ; Created By: PATTI ALMENDAREZ LPN; Reaction Status: Active ; Category: Food ; Substance: Nuts ; Type: Allergy ; Updated By: PATTI ALMENDAREZ LPN; Reviewed Date: 11/02/2012 11:53 HYDRAULIC TESTER Source: [facility] POWERCHART Document Id: [id number] documented in this encounter Plan of Treatment Not on filedocumented as of this encounter Visit Diagnoses Not on filedocumented in this encounter
--- OUTSIDE RECORDS SUMMARY | 2022-05-06 13:12 | XMS_ITS | Encounter Summary ---
:1935 Author Organization [facility] Address [address] [place] [id number] Care Team Providers Name Role Phone Unavailable Primary Care Provider Unavailable Encounter Details Date Type Department Care Team Description 05/26/2013 - Hospital Encounter [facility]X [facility] Daisy huff, 10/13/2013 EARLINE Huff M.D. [id number] [place] [id number] Social History Tobacco Use Types Packs/Day Years Used Date Smoking Tobacco: Never Assessed Sex Assigned at Date Recorded Not on file documented as of this encounter Discharge Summaries Faviola Villalobos, P.T. - 06/20/2013 12:00 AM CDT [id number] DISCHARGE SUMMARY Patient was seen for a total of 3 treatment sessions. Her plan of care included patient education, home exercise program and EXPORT SPECIALIST maneuvers. Patient achieved all goals was discharged due to symptom resolution. Faviola Villalobos D.P.T./tommy Electronically Signed By: FAVIOLA VILLALOBOS On: 10/03/2013 08:43 AM Source: [facility] MHSDOLBEYNONRADSYS Document Id: [id number] CLOTH FOLDER documented in this encounter Medications at Time [...] of this encounter Progress Notes Faviola Villalobos P.T. - 06/24/2013 1:47 PM CDT Talked with patient and she is now working on the VOR exercises and they are a little more difficult for her. She has noted mild symptoms of dizziness. Patient instructed she could also continue with Uribe-Daroff exercises as well if she feels like her symptoms are increasing. Patient to call and followup next week. Electronically Signed By: FAVIOLA VILLALOBOS On: 06/24/2013 01:49 PM Source: [employer] Document Id: [id number] Faviola Villalobos P.T. - 06/22/2013 9:15 AM CDT Talked with patient via telephone and she is feeling much better. We will continue with the Uribe-Daroff exercises in her home program for 1 more day. Then she will discontinue those and begin the VOR exercises. Patient to call with any questions or concerns. Will followup with patient at the end ofthe week via telephone. As always she may schedule an appointment at any time as needed as well. Electronically Signed By: FAVIOLA VILLALOBOS On: 06/22/2013 09:17 AM Source: [employer] Document Id: [id number] Faviola Villalobos P.T. - 06/20/2013 12:00 AM CDT [id number] PATIENT'S CHIEF COMPLAINT Patient reports that her vertigo has returned. Patient was last seen on 06/15/2013 and she had complete resolution of symptoms for approximately 2 days and then the symptoms returned. She has tried themaneuvers at home with her spouse but has not had any relief. Patient has had frequent recurrences of the positional vertigo since a fall in which she sustained a hit to the head. First evaluation of this was on 05/26/2013, had the reoccurrence on 06/15/2013 and then presents again today with symptomsas well. Patient continues to feel symptoms with head movements. She feels disequilibrium and lightheadedness, as well as dizziness. Patient does have nausea but no emesis. PHYSICAL EXAMINATION Today we did reassess the Hallpike-Durham test. Patient did not demonstrate a nystagmus, however, she did feel symptom reproduction with the right posterior and horizontal canal, some mild symptoms on theleft posterior as well. Again no nystagmus was noted due to a positive Hallpike Durham test on the right posterior canal the last time we will go ahead and repeat that maneuver today as well as initiate ahome exercise program. IMPRESSION/REPORT/PLAN We performed EXPORT SPECIALIST maneuvers to the right posterior canal times 1 repetition. Patient was symptomatic during procedure. We then initiated Uribe-Daroff exercises for home exercise program for right posterior canal. Patient will initiate these performing them at 5 repetitions 3 time a day. Patient was given [facility] written handout with illustrations to perform home exercise program. She verbalized understanding. PATIENT EDU #1 Patient Education Ready to learn No apparent learning barriers were identified Learning preferences include listening Explained diagnosis and treatment plan Patient/Child/Caregiver expressed understanding of the content. Patient encouraged to begin those tonight if she feels good enough or in the morning. We will also likely initiate VOR exercises due to her multiple episodes of vertigo but we will hold on that until patient's symptoms subside as patient is quite symptomatic today. She tolerated the session well. Today's treatment was times 15 minutes. Plan is to continue. We will call patient on Thursday for followup which is 06/22/2013. Patient to call if she has any questions or concerns or increase in symptoms between now and then; verbalized understanding, left in no acute distress with her providing handheld assist. Total treatment time 15-minutes. Plan to continue. Faviola Villalobos D.P.T./tommy DOCID: [110] Electronically Signed By: FAVIOLA VILLALOBOS On: 06/23/2013 04:35 PM Modified by and Electronically Signed by: FAVIOLA VILLALOBOS On: 06/23/2013 04:35 PM Source: [facility] MHSDOLBEYNONRADSYS Document Id: [id number] Faviola Villalobos P.T. - 06/16/2013 8:52 AM CDT Talked with patient today and she is feeling drastically better. She will see how the day goes and call if she needs further care. Electronically Signed By: FAVIOLA VILLALOBOS On: 06/16/2013 08:53 AM Source: [facility] POWERSunpreme Document Id: [id number] Faviola Villalobos P.T. - 06/15/2013 12:00 AM CDT [id number] CHIEF COMPLAINT/REASON FOR VISIT Patient comes in today with a reoccurrence of positional vertigo. Patient reports it began in the middle the night. We had recently treated patient and she was feeling quite a bit better. However, symptoms began last night with a lot of spinning and dizziness noted, disequilibrium and nausea. No vomiting was noted. PHYSICAL EXAMINATION We did perform the Hallpike Jimmy test which was positive for a right posterior canal nystagmus with alatency of 6 seconds and a duration of 15 seconds. Patient tolerated with symptom reproduction. IMPRESSION/REPORT/PLAN We did perform EXPORT SPECIALIST maneuvers for the right posterior canal times 1 repetition. Patient was symptomatic during maneuvers in all positions. She tolerated them with the symptom reproduction. Plan is to continue towards initial goals. We will follow up with patient via telephone. Patient will call and return if symptoms do not continue to improve. Faviola Villalobos D.P.T./joby DOCID: [110] Electronically Signed By: FAVIOLA VILLALOBOS On: 06/16/2013 07:48 AM Co-Signed By: MARY VARMA RN, MANAGER AUTOMOTIVE On: 06/20/2013 06:18 AM Source: [facility] MHSDOLBEYNONRADSYS Document Id: [id number] Faviola Villalobos P.T. - 05/27/2013 2:31 PM CDT Talked with patient via telephone. She reports she is feeling much better today. She still is a little woozy but she feels that is from the pain medication. Overall patient is doing well. She will call with any further problems. Electronically Signed By: FAVIOLA VILLALOBOS On: 05/27/2013 02:33 PM Source: [facility] POWERCHART Document Id: [id number] documented in this encounter Consult Notes Faviola Villalobos P.T. - 05/26/2013 12:00 AM CDT [id number] REFERRAL SOURCE/ORDER Patient is referred physical therapy by Dr. Villa for vestibular rehab. HISTORY OF CURRENT CONDITION Patient reports an insidious onset of dizziness. Patient reports that it got really bad yesterday on05/25/2013. However, she has had some dizziness since having a fall several days ago. During that fall patient did sustain left rib fracture and left hip contusion. Patient had been doing fairly well at home but reports that she had a flare-up of dizziness yesterday, her symptoms are slightly better today but continues to be limited with symptoms of spinning, nausea, vomiting, denies any diplopia, tinnitus or headache. Patient has had previous episodes of positional vertigo. she has no past medical history of Meniere's disease sudden hearing loss, pressure or fullness in the ears, discharge from the ears or nose, Terri malformation or severe DDD of the cervical spine. PHYSICAL EXAMINATION Patient did complete verbal assessment as she is unable to complete a written forms today. She has had previous episodes of positional vertigo, did have the recent fall, has the left rib fracture and left hip contusion. Patient has been ambulating with a straight cane around the home. She has been having contact guard assist from her since flare up of vertigo symptoms. She has been very fatigued and doing a lot sleeping. Today we did the brace patient with a pillow over her abdomen for her to hold during the maneuvers. Patient initiated all motions and was supported and assisted into a gentle transitions. Patient was able to tolerate them all quite well. We did perform the Hallpike-Jimmy test which was positive for symptom reproduction and left posterior canal nystagmus. We did perform assessments of the horizontal canals which are negative. Patient was symptomatic during the posterior canals. Patient will be treated for vertigo. She is at higher risk of falls due to vertigo symptoms and the recent history of fall. Patient will continue ambulate with a straight cane and standby assist until vertigo symptoms resolve. Patient Consents to physical therapy treatment. PATIENT EDU #1 Patient Education Ready to learn No apparent learning barriers were identified Learning preferences include listening Explained diagnosis and treatment plan Patient/Child/Caregiver expressed understanding of the content. IMPRESSION/REPORT/PLAN We did perform EXPORT SPECIALIST maneuvers. We tried the right posterior canal with no success. Did perform the left posterior canal well with improved response. Patient tolerated fairly well. PATIENT GOALS 1. Patient's functional reporting status is G 8981 with modifier CK with projected goal status of G 898s with modifier of CH determined by clinical presentation of symptoms. Goal is to achieve this within up to 4 weeks. 2. Patient will note resolution of symptoms in 4 weeks. 3. Patient will ambulate safely and independently with straight cane in 4 weeks. PLAN OF CARE Her plan of care Is patient education, possible home program if needed with Uribe-Daroff exercises,vestibular rehab and EXPORT SPECIALIST maneuvers. PLAN Plan is to see patient for up to 6 treatment sessions as needed over the next month for resolution of symptoms. Faviola Villalobos D.P.T./tommy cc: Anisha Villa M.D. Electronically Signed By: FAVIOLA VILLALOBOS On: 05/27/2013 02:38 PM Modified by and Electronically Signed by: FAVIOLA VILLALOBOS On: 05/27/2013 02:38 PM Co-Signed By: ANISHA GARCIA MD On: 05/29/2013 01:16 PM Source: [facility] MHSDOLBEYNONRADSYS Document Id: [id number] documented in this encounter Miscellaneous Notes Miscellaneous - Conversion, Historical Provider Ser - 09/29/2013 3:14 PM HAND CLOTH FOLDER Med Management Document Contains Addenda Addendum by NIMISHA RIOJAS V on 30 September 2013 10:41:05 HAND CLOTH FOLDER pt updated Addendum by MARY VARMA RN, IVANA on 30 September 2013 10:26:10 HAND CLOTH FOLDER From: MARY VARMA RN, IVANA To: EARLE ZAMORANO III, MD; Sent: 09/30/2013 10:26:10 HAND CLOTH FOLDER Subject: RE:FW: Med Management Approved Order:traMADol (traMADol 50 mg oral tablet) 2 tab(s) PO q6hr may take 1-2 tabs every 4-6hrs Qty: 60 tab(s) Refills: 0 Substitutions Allowed PRN Pain Route To Pharmacy - [facility] Signed by MARY VARMA RN, IVANA 09/30/2013 10:26:03 Addendum by NIMISHA RIOJAS V on 30 September 2013 09:40:46 HAND CLOTH FOLDER From: NIMISHA RIOJAS V To: MARY VARMA RN, IVANA; Sent: 09/30/2013 09:40:46 HAND CLOTH FOLDER Subject: FW: Med Management Dr Zamorano didn't address-please advise Addendum by EARLE ZAMORANO III, MD on 29 September 2013 18:14:13 HAND CLOTH FOLDER From: EARLE ZAMORANO III, MD To: MARY VARMA RN, MANAGER AUTOMOTIVE; Sent: 09/29/2013 18:14:13 HAND CLOTH FOLDER Subject: FW: Med Management From: NIMISHA RIOJAS V To: EARLE ZAMORANO III, MD; NIMISHA RIOJAS V; Sent: 09/29/2013 15:14:05 HAND CLOTH FOLDER Subject: Med Management On hold pending signature Order:traMADol (traMADol 50 mg oral tablet) 2 tab(s) PO q6hr may take 1-2 tabs every 4-6hrs Qty: 60 tab(s) Refills: 0 Substitutions Allowed PRN Pain Route To Pharmacy - [facility] * provider for Mary who is not here today. Pt last seen 09/05 for cracked ribs ( from April) .Uses @ night mostly. Is leaving on vacation tomorrow @ 10:30am Source: [employer] Document Id: [id number] Miscellaneous - Madhavi Perdomo R.N. - 08/31/2013 11:34 AM CST Med Management Document Contains Addenda Addendum by MADHAVI PERDOMO RN on 31 August 2013 13:50:03 HAND CLOTH FOLDER noted Addendum by MARY VARMA RN, MANAGER AUTOMOTIVE on 31 August 2013 12:54:45 HAND CLOTH FOLDER From: MARY VARMA RN, MANAGER AUTOMOTIVE To: MADHAVI PERDOMO RN; Sent: 08/31/2013 12:54:44 HAND CLOTH FOLDER Subject: RE:Med Management Approved Order:traMADol (traMADol 50 mg oral tablet) 2 tab(s) PO q6hr may take 1-2 tabs every 4-6hrs Qty: 60 tab(s) Refills: 0 Substitutions Allowed PRN Pain Route To Pharmacy - [facility] Signed by MARY VARMA RN, CNP 08/31/2013 12:54:41 From: MADHAVI PERDOMO RN To: MARY VARMA RN, IVANA; MADHAVI PERDOMO RN; Sent: 08/31/2013 11:34:25 HAND CLOTH FOLDER Subject: Med Management On hold pending signature Order:traMADol (traMADol 50 mg oral tablet) 2 tab(s) PO q6hr may take 1-2 tabs every 4-6hrs Qty: 60 tab(s) Refills: 0 Substitutions Allowed PRN Pain Route To Pharmacy - [facility] Documented Discontinue:traMADol (traMADol 50 mg oral tablet) Signed by MADHAVI PERDOMO RN 08/31/2013 11:30:54 Source: [facility] POWERCHART Document Id: [id number] Miscellaneous - Faviola Garcia - 08/29/2013 8:38 AM CST General Message Document Contains Addenda Addendum by FAVIOLA GARCIA RN on 29 August 2013 16:07:08 HAND CLOTH FOLDER From: FAVIOLA GARCIA RN To: MARY VARMA RN, IVANA; Sent: 08/29/2013 16:07:08 HAND CLOTH FOLDER Subject: RE: General Message Kathryn has been taking Gabapentiin 300 mg three times daily, Tramadol 100 mg at bedtime and sometimes an additional tab during night, and also tylenol. She has not been taking any ibuprofen. She plans toadd that with food and make a follow up in the next couple days. We did again discuss that if she has any shortness of breath or changes with her breathing that she needs to be seen urgently. She verbalized understanding. Addendum by MARY VARMA RN, IVANA on 29 August 2013 15:58:38 HAND CLOTH FOLDER From: MARY VARMA RN, MANAGER AUTOMOTIVE To: FAVIOLA GARCIA RN; Sent: 08/29/2013 15:58:38 HAND CLOTH FOLDER Subject: RE: General Message will have her try some of her pain meds that she has- if she is short of breath, she needs to be seen. if no improvement with meds then needs to be seen -thanks. From: FAVIOLA GARCIA RN To: MARY VARMA RN, MANAGER AUTOMOTIVE; Sent: 08/29/2013 08:38:24 HAND CLOTH FOLDER Subject: General Message C/o pain where had fractured rib post fall in motel room in May. States it had improved but now has discomfort.States was quite uncomfortable last night, is worried. Denies being aware of any recent injury or chest/coughing illness. Advised that she needs to be seen to have this evaluated. Suggested that she could see someone else if unable to get in soon enough to see you and that she could f/u with you. She prefers I ask your advise what she should do. Source: [facility] POWERCHART Document Id: [id number] Electronically signed by [facility]in [facility] Integrity Consultant [id number] at 02/11/2017 7:42 PM CDT documented in this encounter Plan of Treatment Not on filedocumented as of this encounter Visit Diagnoses Not on filedocumented in this encounter
--- OUTSIDE RECORDS SUMMARY | 2022-05-06 13:12 | XMS_ITS | Encounter Summary ---
:[address] [facility] Address [address] [place] [address] Care Team Providers Name Role Phone Unavailable Primary Care Provider Unavailable Encounter Details Date Type Department Care Team Description 12/21/2012 Hospital Encounter HX [facility] [place] Varma, CYRIL, C.N.P., D. N.P. [address] [place] [phone] (Wo rk) Social History Tobacco Use Types Packs/Day Years Used Date Smoking Tobacco: Never Assessed Sex Assigned at Date Recorded Not on file documented as of this encounter Last Filed Vital Signs Vital Sign Reading Time Taken Comments Blood Pressure 122/64 12/21/2012 10:12 AM CDT Pulse 76 12/21/2012 10:12 AM CDT Temperature - - Respiratory Rate 16 12/21/2012 10:12 AM CDT Oxygen Saturation - - Inhaled Oxygen Concentration - - Weight 73.4 kg (161 lb 13.1 oz) 12/21/2012 10:12 AM CDT Height 161 cm (5' 3.39) 12/21/2012 10:12 AM CDT Body Mass Index 28.32 12/21/2012 10:12 AM CDT documented in this [...] this encounter Progress Notes [place] Varma APRN, CDannN.P. - 12/21/2012 9:48 AM CDT [id number] CHIEF COMPLAINT/REASON FOR VISIT 1. Hip pain, HISTORY OF PRESENT ILLNESS Briana is a very pleasant 77-year-old female who comes in today for recheck of her right hip bursitis.She states that actually her symptoms have improved significantly on the right hip, she did go have ultrasound treatment by physical therapy as well as using Mobic. She tried increased her Gabapentin but got very dizzy from that and went back to her regular dose. She states that she felt fine until yesterday when she started having left hip and buttock pain. She wonders if it was because she was compensating but she has significant pain in that left hip area. She took her last Mobic tablet today. She has not had any GI side effects from that. CURRENT MEDICATIONS Redoing her Mobic prescription for an additional week. ALLERGIES Glutens and nuts. SYSTEMS REVIEW No numbness or tingling in her extremities. No significant leg weakness. No radiating pain into her groin area. No recent falls or trauma. PAST MEDICAL/SURGICAL HISTORY Please see the EMR. VITAL SIGNS Blood pressure: 122/64. Pulse: 76. IN GENERAL: Patient appears non-distressed. SKIN: Her skin is warm and dry. SPINE: Her spine is in alignment. ABDOMEN: Her abdomen soft. There is no organomegaly. MUSCULOSKELETAL: Her right hip, full range of motion. No tenderness to palpation. Her left hip, she has some slight trochanter bursa pain but very minimal, most of her pain sits in that upper buttock area on the left side. She has full range of motion with flexion, extension, abduction and adduction of that left hip. Normal sensation on her lower extremity of the left leg. IMPRESSION/REPORT/PLAN 1. Left hip pain. Actually I am just going to extend her Mobic for an additional week, have her see physical therapy again which I think will be beneficial for her. I do think that maybe she is compromising a little bitof her gait. I wonder if orthotics or more supportive shoes to be helpful for her. I will ask, Davina our physical therapist if there is any recommendations in regards to that. PATIENT EDU #1 Patient Education Ready to learn No apparent learning barriers were identified Learning preferences include listening Explained diagnosis and treatment plan Patient/Child/Caregiver expressed understanding of the content. Aakash Quiroga/tommy Electronically Signed By: ALBANIA VARMA RN, TOOLSMITH On: 12/23/2012 05:19 PM Source: [facility] MHSDOLBEYNONRADSYS Document Id: [id number] documented in this encounter Miscellaneous Notes Miscellaneous - [place] Varma APRN, C.N.P. - 12/21/2012 4:49 PM CDT General Message Document Contains Addenda Addendum by BIANCA VILLALOBOS on 30 December 2012 10:20:03 CDT I have seen Briana and she is improving nicely. Her gait has improved with decreased pain. I will take a look at her feet to consider orthotics and discuss some ideas for improved footwear with her. Thanks for the referral. From: ALBANIA VARMA RN, TOOLSMITH To: BIANCA VILLALOBOS; Sent: 12/21/2012 16:49:34 CDT Subject: General Message Do you think she would benefit from orthotics or more supportive shoes to assist her gait and shift her weight? What and where would you recommend? She will be coming to see you soon. You fixed her right hip but now she is struggling with her left hip. Source: [facility] POWERCHART Document Id: [id number] Miscellaneous - [place] Varma APRN, C.N.P. - 12/21/2012 10:43 AM CDT Ambulatory Patient Summary [place] [id number] [facility] [place] [address] Visit Information Name: BRIANA LEON [facility] Number: [id number] Current Date: 12/21/2012 10:43:00 Physicians Attending Provider: ALBANIA VARMA RN, TOOLSMITH Primary Care Provider: ALBANIA VARMA RN, TOOLSMITH Your Medications Here is a list of [...] mg Oral once a day (at bedtime) tramadol (tramadol 50 mg oral tablet) 50 [...] No Appointments found Your Goals/Additional instructions: Source: [facility] POWERCHART Document Id: [id number] Miscellaneous - [place] Varma APRN, C.N.P. - 12/21/2012 10:42 AM CDT Ambulatory Depart Summary [address] [address] Visit Information Name: BRIANA LEON [facility] Number: [id number] Visit Date: 12/21/2012 10:42:58 Attending Provider: ALBANIA VARMA RN, TOOLSMITH Primary Care Provider: ALBANIA VARMA RN, TOOLSMITH BRIANA LEON has been given the following [...] mg Oral once a day (at bedtime) tramadol (tramadol 50 mg oral tablet) 50 [...] your provider for clarification. Additional Information: Source: [facility] POWERCHART Document Id: [id number] Miscellaneous - Sujatha Batista L.P.N. 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 Entered On: 12/21/2012 10:16 CDT Performed On: 12/21/2012 10:12 CDT by SUJATHA BATISTA LPN Intake Chief Complaint : Recheck follow up bursitis questions if symptoms starting in other hip Temperature Core : 36.3 DegC(Converted to: 97.3 DegF) (LOW) Peripheral Pulse Rate : 76 /min Respiratory Rate : 16 /min Heart Rhythm : Regular Systolic Blood Pressure : 122 mmHg Diastolic Blood Pressure : 64 mmHg NIBP Mean : 83 mmHg BP Location : Right upper extremity Blood Pressure Cuff Size : Regular Height : 161 cm(Converted to: 5 ft 3 inch(es), 63.39 inch(es)) Actual Weight : 73.4 kg(Converted to: 161 lb 13 oz) Weight Source : Standing scale Dosing Weight Clinic : 73.4 kg Clinic BSA : 1.81 Body Mass Index : 28.32 kg/m2 SUJATHA BATISTA LPN - 12/21/2012 10:12 CDT General Info Information Given By : Patient Preferred Communication Mode : Verbal Languages : Kiswahili SUJATHA BATISTA LPN - 12/21/2012 10:12 CDT Subjective Pain Symptoms : Yes SUJATHA BATISTA LPN - 12/21/2012 10:12 CDT Pain Pain Assessment Grid Pain 1 Location : Hip Laterality : Left Intensity : 6 SUJATHA BATISTA LPN - 12/21/2012 10:12 CDT Dependent Habits Tobacco Use/Currently Using : No Exposure to Tobacco Smoke : Care provider denies smoking in home Smoking Status : Never smoker SUJATHA BATISTA LPN - 12/21/2012 10:12 CDT Tobacco Use Grid Last Use : never SUJATHA BATISTA LPN - 12/21/2012 10:12 CDT Alcohol Use : Yes SUJATHA BATISTA LPN - 12/21/2012 10:12 CDT Caffeine Use Grid Caffeine Use : Current Type : Coffee Frequency : Weekly SUJATHA BATISTA LPN - 12/21/2012 10:12 CDT Recreational Drug Use Grid Drug Use : None SUJATHA BATISTA LPN - 12/21/2012 10:12 CDT Source: [employer] Document Id: [id number]!46 documented in this encounter Plan of Treatment Not on filedocumented as of this encounter Visit Diagnoses Not on filedocumented in this encounter
--- OUTSIDE RECORDS SUMMARY | 2022-05-06 13:12 | XMS_ITS | Encounter Summary ---
:1935 Author Organization [facility] Address [address] [place] [id number] Care Team Providers Name Role Phone Unavailable Primary Care Provider Unavailable Encounter Details Date Type Department Care Team Description 11/02/2013 Hospital Encounter HX [facility] [place] Varma, CYRIL, C.N.P., D. N.P. [address] [place] [address] (Wo rk) Social History Tobacco Use Types Packs/Day Years Used Date Smoking Tobacco: Never Assessed Sex Assigned at Date Recorded Not on file documented as of this encounter Last Filed Vital Signs Vital Sign Reading Time Taken Comments Blood Pressure 122/74 11/02/2013 2:50 PM WEB ANALYTICS DEVELOPER Pulse - - Temperature - - Respiratory Rate - - Oxygen Saturation - - Inhaled Oxygen Concentration - - Weight 73.4 kg (161 lb 13.1 oz) 11/02/2013 2:50 PM WEB ANALYTICS DEVELOPER Height 158.8 cm (5' 2.52) 11/02/2013 2:50 PM WEB ANALYTICS DEVELOPER Body Mass Index 29.11 11/02/2013 2:50 PM WEB ANALYTICS DEVELOPER documented in this encounter Medications at Time [...] documented as of this encounter H&P Notes Joaquin Briana David Landa - 11/02/2013 12:44 PM CST [id number] CHIEF COMPLAINT/REASON FOR VISIT Briana is a very pleasant 78-year-old female who comes in today for her initial Medicare annual wellness visit. VITAL SIGNS WEIGHT: 73.4 kg HEIGHT: 158.8 cm BLOOD PRESSURE: 122/74 left arm, regular cuff BODY MASS INDEX: 29 OBSTRUCTIVE SLEEP APNEA ASSESSMENT: Neck circumference is 35 cm, total sleep apnea clinical score of1. ALLERGIES 1. Gluten. 2. Nuts. MEDICATIONS 1. Estradiol topical cream 10 mcg to apply vaginally twice weekly. 2. Restasis ophthalmic drops 1 drop in both eyes every 12 hours. 3. Aspirin 81 mg tablet 1 tablet by mouth every other day. 4. Vitamin B12 1000 mcg 1 tablet by mouth daily. 5. Multivitamin 1 tablet by mouth daily. 6. Cosopt ophthalmic solution 1 drop daily in the right eye only. 7. Flonase 0.05 mg per inhalation nasal spray 2 sprays in both nostrils one time daily. 8. Gabapentin 300 mg oral capsule 1 capsule by mouth 3 times daily. 9. Citracal 1 tablet by mouth twice daily. 10. Acetaminophen 325 mg 2 tablets by mouth up to 3 times daily if needed for pain. 11. Ibuprofen 600 mg oral tablet 1 tablet by mouth daily as needed for pain. 12. Rochelle-D 12 hour 60 mg/120 mg oral tablet extended release 1 tablet by mouth twice daily. 13. Citrucel laxative 3 tablets by mouth daily. 14. Ferrous sulfate 325 mg 1 tablet by mouth daily. 15. Omeprazole 40 mg oral delayed release capsule 1 capsule by mouth daily. PAST MEDICAL/SURGICAL HISTORY PAST MEDICAL HISTORY: 1. Osteopenia. 2. Neuritis and radiculitis. 3. Hiatal hernia. 4. Glaucoma. 5. History of rib fractures left side. 6. Eye disorder. 7. Chest wall pain. 8. Celiac disease. 9. Cataracts. 10. Bursitis hip trochanteric 11. Rheumatoid arthritis. 12. Allergic rhinitis. 13. Atrophic vaginitis. PAST SURGICAL HISTORY: 1. Tonsillectomy as a child. 2. 2008 and 2010 colonoscopies. 3. 2010 left cataract surgery. 4. 2002 right cataract surgery. 5. 1958 hemorrhoidectomy. 6. 1966 hysterectomy. 7. 2008 laminectomy. 8. 1981 reduction mammoplasty. 9. 1994 repair of cystocele. OB HISTORY: 4, para 3, miscarriage 1. SOCIAL HISTORY Briana has 12 years of formal education. She is currently and has been for 57 years. She retired in 2004. 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 HOBBIES: She enjoys scrapbooking, cooking, reading, quilting and knitting. They have no house pets, two outside cats only. DIET AND NUTRITION: She feels eat a well-balanced diet on most days. EXERCISE: Currently no formal exercise. TOBACCO USE: She is a lifelong non-tobacco user. CAFFEINE USE: Current about 2 cups per day. ALCOHOL USE: Minimal, 1 to 2 drinks per month. FAMILY HISTORY She has 3 sons, ages range from 56 years old down to 48. The oldest son is a senior reliability engineer. The other 2 sons have taken over the meat market business from Briana and her . All children are in good health. She has 7 grandchildren. They too are in very good health. Her parents are both . Her mother at age 97 from complications of a hip fracture after a fall. Her father at age 95from complications of gallbladder surgery. Briana is the third to the oldest in a family of 6. Her oldest brother is age 78, youngest sister age 63. She has a brother who at age 22 from congenital heart problems. He had Downs syndrome. Her oldest brother also has had a form of cancer. One of her other younger brothers also has celiac disease. Her sisters are in very good health. COGNITIVE IMPAIRMENT: The mini mental state exam was done. She scored 30. The interpretation is negative for cognitive impairment. Potential risk for depression. The PHQ-9 score was 1. She states she typically does not have any problems sleeping except with the full ring whether she has the shades pulled or not, it seems to keep her awake. FUNCTIONAL ABILITY AND LEVEL OF SAFETY: Hearing Screen: She does not wear any hearing devices. One response to the Medicare annual wellness health questionnaire was positive and that is asking people to repeat themselves. Vision Screen: Last eye exam was 6 months ago. Her next exam is in November 2013. Today reading the Snellen eye chart with corrective lenses, right eye 20/200, left eye 20/25, and both eyes 20/40. Dental Exam: Briana has her own teeth. She has cleanings twice yearly. Activities Of Daily Living: She is very independent of all activities of daily living. She is able to manage her own medicines. She continues to drive without difficulty and wears a seatbelt 100% of the time. Fall Risk: Briana did have a pretty significant fall where she was hospitalized after slipping gettingout of a bathtub in a hotel room in [place]. She had contusions to the left hip and several broken ribs on the left side. Today she was observed for her steadiness and gait and walking in exam room and she did so in less than 8 seconds. She states she still has some pain, particularly in the left mid rib area. Home Safety: The house is positive for both smoke detectors and carbon monoxide detectors. HEALTH CARE PROVIDERS AND LIST OF SUPPLIERS: [place]ia Varma of the [facility] in [place] is her primary care provider. Dr. Sravan Tay in [place] her primary dentist. Dr. Con Ayers at [facility] for her eye care. [facility] for her prescription refills and the [facility] in [place] [facility]. EDUCATION/COUNSELING/RECOMMENDATIONS: Briana was given a handout from the senior linkage line with information on resources available to herin the [place] and local areas. She was also provided with the Power of Prevention educational booklet from [facility]. Page 40 of the booklet was completed with her most recent. Preventative services, immunizations and recommendations for updating. Last mammogram was August 25, 2013. Last colon screen March 25, 2011. Last bone density November 01, 2013. Last diabetes screen September 05, 2013. Her fasting blood sugar was 92. Last lipid screen October 31, 2013, total cholesterol was 184, triglycerides 218 and HDL 43, LDL 97. Pneumococcal vaccine February 01, 2007. Tdap November 04, 2010. Influenza July 05, 2013. Zostavax October 02, 2010. Briana has also completed the hepatitis B series and the hepatitis A series. VOLUNTARY ADVANCE CARE PLANNING: She currently does not have an Advanced Directive. One was providedfor her today and she was encouraged to complete it and return it to be scanned into the electronic medical record. IMPRESSION/REPORT/PLAN 1. We discussed home safety, particularly the increased risk that she has with visual impairment andmany suggestions were given she might try in in her home. 2. A colon cancer screen, the FIT test was ordered and instructions given by the lab today. 3. She follows a gluten free diet and she has excellent knowledge of food choices and manages this very well. 4. She continues to have some mid lower left rib pain which she is following with [place] Varma on resolution of this pain following the significant fall she had in April 2013. I look forward to seeing Briana in one year. Briana Hines R.N./joby Electronically Signed By: BRIANA HINES RN On: 11/04/2013 11:16 AM Modified by and Electronically Signed by: BRIANA HINES RN On: 11/04/2013 11:16 AM Co-Signed By: ALBANIA VARMA RN, BUSINESS MANAGEMENT CONSULTANT On: 11/08/2013 05:17 PM Source: [facility] MHSDOLBEYNONRADSYS Document Id: [id number] ANALYTICS DEVELOPER documented in this encounter Procedure Notes Briana Hines R.N. - 11/02/2013 2:54 PM CST Vision Testing Vision Testing Entered On: 11/02/2013 14:55 WEB ANALYTICS DEVELOPER Performed On: 11/02/2013 14:54 WEB ANALYTICS DEVELOPER by BRIANA HINES RN Vision Testing Corrective Lenses : None Eye, Right with Correction : 20/200 Eye, Left w/Correction : 20/25 Eyes, Both w/o Correction : 20/40 BRIANA HINES RN - 11/02/2013 14:54 WEB ANALYTICS DEVELOPER Source: [facility] POWERCHART Document Id: [id number] WEB ANALYTICS DEVELOPER!6 ANALYTICS DEVELOPER documented in this encounter Miscellaneous Notes Miscellaneous - Briana Hines R.N. - 11/02/2013 2:53 PM WEB ANALYTICS DEVELOPER PHQ-9 PHQ-9 Entered On: 11/02/2013 14:53 WEB ANALYTICS DEVELOPER Performed On: 11/02/2013 14:53 WEB ANALYTICS DEVELOPER by BRIANA HINES RN PHQ-9 Little interest or pleasure in doing things : Not at all Feeling down, depressed, or hopeless : Not at all Trouble falling or staying asleep, or sleeping too much : Not at all Feeling tired or having little energy : Not at all Poor appetite or overeating : Not at all Feeling bad about yourself or that you are a failure : Not at all Trouble concentrating on things : Not at all Moving or speaking slowly; restless or fidgety : Not at all Thoughts that you would be better off /hurting self : Not at all PHQ-9 Calculated Score : 0 Problems make work, home, or dealing with others : Not difficult at all BRIANA HINES RN - 11/02/2013 14:53 WEB ANALYTICS DEVELOPER Source: [facility] [employer] Document Id: [id number] WEB ANALYTICS DEVELOPER!13 ANALYTICS DEVELOPER Miscellaneous - Briana Hines R.N. - 11/02/2013 2:53 PM WEB ANALYTICS DEVELOPER Obstructive Sleep Apnea Obstructive Sleep Apnea Entered On: 11/02/2013 14:54 WEB ANALYTICS DEVELOPER Performed On: 11/02/2013 14:53 WEB ANALYTICS DEVELOPER by BRIANA HINES RN KATHERINE Screening Known Obstructive Sleep Apnea : No - NOT diagnosed with KATHERINE BRIANA HINES RN - 11/02/2013 14:53 WEB ANALYTICS DEVELOPER KATHERINE Assessment Do you have high blood pressure or have you been told to take medication for high blood pressure? : No Frequency of Snoring : Sometimes (1-2 times per month) Frequency of Gasping, Choking, Snorting : Never Total Number of Historical Features : 0 Neck Circumference (cm) : 34/35 Total Sleep Apnea Clinical Score Calc : 1 BRIANA HINES RN - 11/02/2013 14:53 WEB ANALYTICS DEVELOPER Source: [facility] POWERCHART Document Id: [id number] WEB ANALYTICS DEVELOPER!10 ANALYTICS DEVELOPER Miscellaneous - Briana Hines R.N. - 11/02/2013 2:52 PM WEB ANALYTICS DEVELOPER Health Assessment Health Assessment Entered On: 11/02/2013 14:53 WEB ANALYTICS DEVELOPER Performed On: 11/02/2013 14:52 WEB ANALYTICS DEVELOPER by BRIANA HINES RN Health Assessment Complete Health Assessment Complete or Modified : Annual Health Assessment Annual Health Assessment Completed : Yes BRIANA HINES RN - 11/02/2013 14:52 WEB ANALYTICS DEVELOPER Nutrition Nutrition Risk Factors by History Adult : None Home Diet : Other: celiac Disease BRIANA HINES RN - 11/02/2013 14:52 WEB ANALYTICS DEVELOPER Functional Current Daily Living Assistance : None BRIANA HINES RN - 11/02/2013 14:52 WEB ANALYTICS DEVELOPER Dependent Habits Tobacco Use/Currently Using : No Exposure to Tobacco Smoke : Care provider denies smoking in home Smoking Status : Never smoker BRIANA HINES RN - 11/02/2013 14:52 WEB ANALYTICS DEVELOPER Tobacco Use Grid Last Use : never BRIANA HINES RN - 11/02/2013 14:52 WEB ANALYTICS DEVELOPER Alcohol Use : Yes BRIANA HINES RN - 11/02/2013 14:52 WEB ANALYTICS DEVELOPER Caffeine Use Grid Caffeine Use : Current Type : Coffee Frequency : Weekly BRIANA HINES RN - 11/02/2013 14:52 WEB ANALYTICS DEVELOPER Recreational Drug Use Grid Drug Use : None BRIANA HINES RN - 11/02/2013 14:52 WEB ANALYTICS DEVELOPER AUDIT Tool How Often Do You Have A Drink : Monthly or less How Many Drinks in a Day When Drinking : 1 or 2 Six or More Drinks On One Occassion : Never Audit Phase 1 Score : 1 BRIANA HINES RN - 11/02/2013 14:52 WEB ANALYTICS DEVELOPER Psychosocial Domestic Abuse Concerns : None BRIANA HINES RN - 11/02/2013 14:52 WEB ANALYTICS DEVELOPER Advance Directive Advanced Directives : No Advance Directive Additional Information : Yes BRIANA HINES RN - 11/02/2013 14:52 WEB ANALYTICS DEVELOPER Educ Needs Learning Style Preference Adult Grid Patient : Printed materials, Verbal explanation Family : None BRIANA HINES RN - 11/02/2013 14:52 WEB ANALYTICS DEVELOPER Source: [facility] POWERCHART Document Id: [id number] WEB ANALYTICS DEVELOPER!39 ANALYTICS DEVELOPER Miscellaneous - Briana Hines R.N. - 11/02/2013 2:50 PM WEB ANALYTICS DEVELOPER Adult Saw Straightener Intake/History Adult Saw Straightener Intake/History Entered On: 11/02/2013 14:51 WEB ANALYTICS DEVELOPER Performed On: 11/02/2013 14:50 WEB ANALYTICS DEVELOPER by BRIANA HINES corporate scheduler Chief Complaint : Medicare Initial Annual Wellness Visit Systolic Blood Pressure : 122 mmHg Diastolic Blood Pressure : 74 mmHg NIBP Mean : 90 mmHg BP Location : Left upper extremity Blood Pressure Cuff Size : Regular Height : 158.8 cm(Converted to: 5 ft 3 inch(es), 62.52 inch(es)) Actual Weight : 73.4 kg(Converted to: 161 lb 13 oz) Dosing Weight Clinic : 73.4 kg Clinic BSA : 1.8 Body Mass Index : 29.11 kg/m2 BRIANA HINES RN - 11/02/2013 14:50 WEB ANALYTICS DEVELOPER General Info Information Given By : Patient Languages : Somali BRIANA HINES RN - 11/02/2013 14:50 WEB ANALYTICS DEVELOPER Subjective Pain Symptoms : No BRIANA HINES RN - 11/02/2013 14:50 WEB ANALYTICS DEVELOPER Dependent Habits Tobacco Use/Currently Using : No Exposure to Tobacco Smoke : Care provider denies smoking in home Smoking Status : Never smoker BRIANA HINES RN - 11/02/2013 14:50 WEB ANALYTICS DEVELOPER Tobacco Use Grid Last Use : never BRIANA HINES RN - 11/02/2013 14:50 WEB ANALYTICS DEVELOPER Alcohol Use : Yes BRIANA HINES RN - 11/02/2013 14:50 WEB ANALYTICS DEVELOPER Caffeine Use Grid Caffeine Use : Current Type : Coffee Frequency : Weekly BRIANA HINES RN - 11/02/2013 14:50 WEB ANALYTICS DEVELOPER Recreational Drug Use Grid Drug Use : None BRIANA HINES RN - 11/02/2013 14:50 WEB ANALYTICS DEVELOPER Source: [facility] [employer] Document Id: [id number] WEB ANALYTICS DEVELOPER!34 ANALYTICS DEVELOPER documented in this encounter Plan of Treatment Not on filedocumented as of this encounter Visit Diagnoses Not on filedocumented in this encounter
--- OUTSIDE RECORDS SUMMARY | 2022-05-06 13:12 | XMS_ITS | Encounter Summary ---
:1935 Author Organization [facility] Address [address] [place] [address] Care Team Providers Name Role Phone Unavailable Primary Care Provider Unavailable Encounter Details Date Type Department Care Team Description 05/26/2013 Hospital Encounter HX [facility] [address] [place] [phone] (Wo rk) Social History Tobacco Use Types Packs/Day Years Used Date Smoking Tobacco: Never Assessed Sex Assigned at Date Recorded Not on file documented as of this encounter Last Filed Vital Signs Vital Sign Reading Time Taken Comments Blood Pressure 126/66 05/26/2013 7:27 AM CDT Pulse 83 05/26/2013 7:27 AM CDT Temperature - - Respiratory Rate - - Oxygen Saturation - - Inhaled Oxygen Concentration - - Weight 72.9 kg (160 lb 11.5 oz) 05/26/2013 7:27 AM CDT Height - - Body Mass Index 27.44 05/15/2013 8:35 PM CDT documented in this [...] encounter Progress Notes Cielo Bhakta M.D. - 05/26/2013 7:25 AM CDT [id number] CHIEF COMPLAINT/REASON FOR VISIT Follow-up dizziness and nausea. HISTORY OF PRESENT ILLNESS Briana is a 78-year-old female who was recently hospitalized following a fall that caused a rib fracture. Since being home she has been having dizziness and nausea. She had also had some diarrhea and due to her recent hospitalization we empirically started her on Flagyl to treat Clostridium Difficile but her C- Diff assay came back negative. She states that her diarrhea has stopped and yesterday was her first day with a normal stool. She reports that the Flagyl tastes awful but she has not had any definite side effects. In regards to the dizziness she reports that it feels like things are moving around her. Yesterday she thought she had vertigo which she has had in the past. This has occurred multiple times and she has benefited from vestibular rehab. Today she reports that she just feels very lightheaded. If she is just sitting still or lying down she does not have any spinning sensationbut she will feel like she needs to hold her head in place. Yesterday she tried taking some Dramamine which did seem to help both the dizziness and the nausea. She has not vomited but she has had some dry heaves. She reports that she continues to feel crappy and has decreased appetite. She has only been taking the Oxy ER but hasn't even taken that yet today. If she sits still her rib fracture pain does not bother her but it does that she moves. CURRENT MEDICATIONS Reconciled. We are going to stop the Flagyl. ALLERGIES Gluten. Nuts. REVIEW OF SYSTEMS As per HPI. Patient denies any tinnitus or hearing loss. She continues to feel quite fatigued. VITAL SIGNS Temperature: 36.3-degrees Centigrade. Pulse: 83 beats per minute. Blood pressure: 126/66. Oxygen saturation: 98% on room air. Weight: 72.9 kg. PHYSICAL EXAMINATION IN GENERAL: Patient is alert and in no acute distress. HEENT: Pupils are equal, round, reactive to light. Extraocular movements are intact. There is no definite nystagmus but patient does have worse sensation of dizziness with eye movements. TMs are clear bilaterally. Oral mucosa is moist. NECK: Is supple. CARDIOVASCULAR EXAM: Regular rate and rhythm. Normal S-2 and S-2. No murmurs, rubs or gallops. LUNGS: Clear to auscultation bilaterally. NEUROLOGIC EXAM: Patient's left eyelid is droopy as compared to the right. Her reports this is stable. Also with facial movements, the right corner of her mouth is a little asymmetric from the left and her and again states that nothing on her face really looks different. Otherwise, cranial nerves are intact. Patient has mildly decreased tapping on the right but it is still coordinatedcompared to the left. She has symmetric leave coordinator strength and lower extremity strength. I have a difficult time eliciting her patellar reflexes. Her right and left bicipital tendon reflexes are 1+ bilaterally. Romberg test does have a little bit of swaying with it but patient is able to control her balance. Pronator drift test is negative. On gait testing patient's gait is a little bit unsteady when she is using a cane. IMPRESSION/REPORT/PLAN 1. Vertigo. Sine patient has had vertigo in the past and has had a recent fall we are going to have her see physical therapy this morning for vestibular rehab to see if she may benefit. I stated she can certainly continue to take the Dramamine if she thinks it is beneficial. If we do the vestibular rehab and things are not improving we may need to proceed with imaging of her head to make sure there are no central causes for her vertigo. 2. Diarrhea. C-Diff test was negative. Her diarrhea has resolved. It is hard to note that was spontaneous or if it was because of the Flagyl. At this point patient and I have decided that she will stop the Flagyl and monitor her stools and if she develops recurrent diarrhea she will then restart the Flagyl. PATIENT EDU #1 Patient Education Ready to learn No apparent learning barriers were identified Learning preferences include listening Explained diagnosis and treatment plan Patient/Child/Caregiver expressed understanding of the content. Cielo Villa M.D./tommy Electronically Signed By: CIELO GARCIA MD On: 05/29/2013 01:17 PM Source: [facility] MHSDOLBEYNONRADSYS Document Id: [id number] documented in this encounter Miscellaneous Notes Miscellaneous - Cielo Bhakta M.D. - 05/26/2013 9:03 AM CDT Ambulatory Patient Summary [id number] [place] [address] Visit Information Name: BRIANA LEON [facility] Number: [id number] Current Date: 05/26/2013 09:03:03 Physicians Attending Provider: CIELO GARCIA MD Primary Care Provider: ALB[place]IA VARMA RN, LANDSCAPE ARTIST Your Medications Here is a list of [...] No Appointments found Your Goals/Additional instructions: Source: [facility] POWERCHART Document Id: [id number] Miscellaneous - Cielo Bhakta M.D. - 05/26/2013 9:03 AM CDT Ambulatory Depart Summary [address] [address] Visit Information Name: BRIANA LEON [facility] Number: [id number] Visit Date: 05/26/2013 09:03:00 Attending Provider: CIELO GARCIA MD Primary Care Provider: ALBANIA VARMA RN, LANDSCAPE ARTIST BRIANA LEON has been given the following [...] your provider for clarification. Additional Information: Source: [facility] POWERCHART Document Id: [id number] Miscellaneous - Erika Noonan L.P.N. - 05/26/2013 7:27 AM CDT Adult Heel Boom Operator Intake/History Adult Heel Boom Operator Intake/History Entered On: 05/26/2013 7:32 CDT Performed On: 05/26/2013 7:27 CDT by ERIKA NOONAN LPN, RT Intake Chief Complaint : f/u for dizziness and nausea Temperature Core : 36.3 DegC(Converted to: 97.3 DegF) (LOW) Peripheral Pulse Rate : 83 /min Systolic Blood Pressure : 126 mmHg Diastolic Blood Pressure : 66 mmHg NIBP Mean : 86 mmHg BP Location : Left upper extremity Blood Pressure Cuff Size : Regular SpO2 : 98 % Oxygen Therapy : Room air Actual Weight : 72.9 kg(Converted to: 160 lb 11 oz) Weight Source : Standing scale Dosing Weight Clinic : 72.9 kg ERIKA NOONAN LPN, RT - 05/26/2013 7:27 CDT General Info Information Given By : Patient Preferred Communication Mode : Verbal Languages : Khmer ERIKA NOONAN LPN, RT - 05/26/2013 7:27 CDT Subjective Pain Symptoms : No ERIKA NOONAN LPN, RT - 05/26/2013 7:27 CDT Dependent Habits Tobacco Use/Currently Using : No Exposure to Tobacco Smoke : Care provider denies smoking in home Smoking Status : Never smoker ERIKA NOONAN LPN, RT - 05/26/2013 7:27 CDT Tobacco Use Grid Last Use : never ERIKA NOONAN LPN, RT - 05/26/2013 7:27 CDT Caffeine Use Grid Caffeine Use : Current Type : Coffee Frequency : Weekly ERIKA NOONAN LPN, RT - 05/26/2013 7:27 CDT Recreational Drug Use Grid Drug Use : None ERIKA NOONAN CENTRAL OFFICE MECHANIC, RT - 05/26/2013 7:27 CDT [facility] [employer] Document Id: [id number] CDT!36 documented in this encounter Plan of Treatment Not on filedocumented as of this encounter Visit Diagnoses Not on filedocumented in this encounter
--- OUTSIDE RECORDS SUMMARY | 2022-05-06 13:12 | XMS_ITS | Encounter Summary ---
:1935 Author Organization [facility] Address [address] [place] [address] Care Team Providers Name Role Phone Unavailable Primary Care Provider Unavailable Encounter Details Date Type Department Care Team Description 12/09/[address] [facility] [place] Varma, CYRIL, C.N.P., D. N.P. [address] [place] [address] (Wo rk) Social History Tobacco Use Types Packs/Day Years Used Date Smoking Tobacco: Never Assessed Sex Assigned at Date Recorded Not on file documented as of this encounter Last Filed Vital Signs Vital Sign Reading Time Taken Comments Blood Pressure 122/60 12/09/2013 9:31 AM CDT Pulse 76 12/09/2013 9:31 AM CDT Temperature - - Respiratory Rate 16 12/09/2013 9:31 AM CDT Oxygen Saturation - - Inhaled Oxygen Concentration - - Weight 74 kg (163 lb 2.3 oz) 12/09/2013 9:31 AM CDT Height - - Body Mass Index 29.34 11/30/2013 9:56 AM CDT documented in this encounter Medications [...] as of this encounter Progress Notes [place] Varma, CYRIL, C.N.P. - 12/09/2013 9:18 AM CDT [id number] CHIEF COMPLAINT/REASON FOR VISIT Results of EGD. HISTORY OF PRESENT ILLNESS Briana is a 78-year-old female who comes in today requesting the results from her EGD. She continues to have some episodes of vertigo, has been doing physical therapy treatment and using meclizine, but has improved. She thinks it is somewhat affecting her eyes. She does have a history of glaucoma also. She has been using gabapentin due to some increased tingling in her legs. She had a dilation with herEGD and states that despite that she has noted no improvement with her swallowing either. She has noparticular lower extremity weakness. Denies any headaches. Continues to have some chest wall pain since her fall which was nearly a year ago this summer. She did have some significant GI symptoms, but since avoiding glutens that is much improved. She states that her balance continues to be off. She always thinks that it is probably due to her back surgery and the permanent damage to her legs. She also has continuous numbness and tingling for her peripheral neuropathy but notes that is much improved. MEDICATIONS She takes acetaminophen 3 times daily Estrace vaginal cream as directed. Rochelle sometimes Rochelle-D twice daily. Flonase nasal spray as directed. Gabapentin 300 mg by mouth 3 times daily. Ibuprofen for pain as needed. Omeprazole 40 mg by mouth daily. Aspirin 81 mg by mouth daily. Calcium with vitamin D 1 tablet twice daily. Vitamin B12 1000 mcg daily. Restasis as needed. Cosopt ophthalmic solution as directed in right eye. Ferrous sulfate 325 mg by mouth daily. Lasix 1 tablet by mouth daily. Xalatan ophthalmic solution as directed. Multivitamin daily. Actonel 35 mg by mouth weekly. ALLERGIES Glutens Metronidazole topical. Nuts. SYSTEMS REVIEW Patient does have glaucoma, is having concerns with vertigo. She does have some weakness of her legs, but mostly she reveals from her back surgery. She does have issues with swallowing and feeling likeshe is unable to swallow completely. She feels off balance. Denies any headaches. Continues to have some epigastric and chest wall discomfort occasionally. Has been using meclizine for her vertigo withPT which has been helpful. She does have peripheral neuropathy which she uses gabapentin as needed. PAST MEDICAL/SURGICAL HISTORY Noteworthy for a significant hiatal hernia. Glaucoma. Pain in her legs bilaterally. BPH. Rheumatoid arthritis. Cataract. Hip pain. Eye disorder. Rib fractures. Celiac. Repair of a cystocele. Mammoplasty reduction. Hysterectomy. Tonsillectomy. SOCIAL HISTORY She lives with her , is a nontobacco and non or rare use of alcohol. FAMILY HISTORY Mother negative. Father for glaucoma. Brother with celiac disease and Down syndrome. PHYSICAL EXAMINATION VITAL SIGNS: Her blood pressure is 122/60 with a pulse of 76, respirations 16. Her weight is 74 kilos. GENERAL: Patient appears nondistressed. SKIN: Warm and dry. HEAD: Normocephalic. Her eyelid especially on the left side is a bit more droopy than the right. Shehas no visual concerns. NECK: Supple. Thyroid assessed and negative. No masses or abnormalities. VESSELS: Carotids with normal upstrokes. No bruits. LYMPH: With no cervical, supraclavicular, axillary lymphadenopathy. HEART: With a regular rate and rhythm. She has a normal S1, S2. There are no murmurs or gallops. LUNGS: Clear to auscultation. She does have some tenderness in her mid epigastric and left chest wall area to palpation. No bruising identified. ABDOMEN: Soft. There is no organomegaly. No particular tenderness to palpation. EXTREMITIES: She does have weakness on her right lower leg. Deep tendon reflexes are present bilaterally. She does have bilateral strength identified. IMPRESSION/REPORT/PLAN Hiatal hernia. I did review her EGD with her. She really is not finding any particular improvement with her swallowing given her recent dilation. She does have pain in her legs bilaterally and does have reoccurrence of benign positional vertigo which she is responding to treatment and she does have a h istory of glaucoma. My 1 concern about Briana is she has multiple different symptoms and we are treating each symptoms individually. I wonder if there is a bigger picture that she has some neurologic beginnings of something neurologic going. Her neurologic exam is essentially negative and she does have weakness of her right leg, however, secondary to her back surgery. Her swallow concern I am unsure with. She does have pain but denies any particular weakness in her lower extremities. She has had a CT scan of her abdomen and chest in the past. She has never had a CT scan of her head. I do not really feel that is necessary at this time, but this is something that I think we need to watch closely. If she does start having any new neurologic symptoms, maybe she needs to be further evaluated by neurology to be sure that she does not have something underlying beginning of a neurologic process with her peripheral neuropathies and with her weakness of her leg, her swallowing concerns, but at this time, Ican't quite identify it. We will again monitor her closely and refer her to neuro when we have more definitive symptoms. Patient agrees with that plan. Aakash Quiroga/farhat Electronically Signed By: ALBANIA VARMA RN, CNP On: 12/19/2013 10:01 AM Source: [facility] MHSDOLBEYNONRADSYS Document Id: [id number] documented in this encounter Miscellaneous Notes Miscellaneous - [place] Varma APRN, C.N.P. - 12/14/2013 10:15 AM CDT General Message Document Contains Addenda Addendum by TOMAS LOUIS LPN on 21 December 2013 09:28:18 CDT Notified patient of message below. Patient had no further questions. Addendum by TOMAS LOUIS LPN on 19 December 2013 15:04:13 CDT Left message for patient to call clinic. Addendum by ALBANIA VARMA RN, CNP on 19 December 2013 14:45:00 CDT From: ALBANIA VARMA RN, CNP To: TOMAS LOUIS LPN; Sent: 12/19/2013 14:45:00 CDT Subject: RE: General Message lets have her use meclizine and increase gabapentin 900mg to twice daily (wean up to) Ice and tylenol not ascriptin. Ibuprofen would be better (with food) Addendum by ALBANIA VARMA RN, CHILD CARE TEACHER on 19 December 2013 14:41:06 CDT Submitted: Modify:gabapentin (gabapentin 300 mg oral capsule) 3 cap(s) PO 2xDay Qty: 270 cap(s) Refills: 3 Substitutions Allowed Route To Pharmacy - [facility] Signed by ALBANIA VARMA RN, IVANA 12/19/2013 14:40:36 Addendum by ALBANIA VARMA RN, CHILD CARE TEACHER on 19 December 2013 14:40:09 CDT Submitted: Order:meclizine (meclizine 12.5 mg oral tablet) 1-2 tab(s) PO 3xDay Qty: 60 tab(s) Refills: 1 Substitutions Allowed PRN Dizziness Route To Pharmacy - [facility] Signed by ALBANIA VARMA RN, CHILD CARE TEACHER Addendum by TOMAS LOUIS LPN on 19 December 2013 12:28:44 CDT From: TOMAS LOUIS LPN To: ALBANIA VARMA RN, CHILD CARE TEACHER; Sent: 12/19/2013 12:28:44 CDT Subject: FW: General Message Patient called and stated she has a few questions: She is wondering if ascriptin would better than tyelnol for her pain? Leg pain- should patient increase dosage of gabapentin? Patient is currently taking 300mg 3 tabs PO Daily. Patient is wondering what medicine do you recommend for vertigo. Patient has open angle glaucoma andread she is not suppose to take OTC's. Left hip feels a sensation of being hot. Not to the touch. Denies any pain walking. Please advise.Patient contact # [phone] Addendum by SUJATHA BATISTA LPN on 14 December 2013 10:22:07 CDT Message left on patients private voicemail From: ALBANIA VARMA RN, CHILD CARE TEACHER To: SUJATHA BATISTA LPN; Sent: 12/14/2013 10:15:27 CDT Subject: General Message please let briana know I didn't find anything to put my finger on but want to see her in FU in 2-3 months. thanks. Source: [facility] [employer] Document Id: [id number] Electronically signed by Conversion, [facility] Supervisor [employer] [id number] at 02/10/2017 12:36 PM CDT Miscellaneous - Sujatha Batista L.PDannN. - 12/09/2013 2:07 PM CDT General Message Document Contains Addenda Addendum by ALBANIA VARMA RN, CHILD CARE TEACHER on 14 December 2013 09:35:11 CDT From: ALBANIA VARMA RN, CHILD CARE TEACHER To: SUJATHA BATISTA LPN; Sent: 12/14/2013 09:35:11 CDT Subject: RE: General Message thank you From: SUJATHA BATISTA LPN To: ALBANIA VARMA RN, CHILD CARE TEACHER; Sent: 12/09/2013 14:07:43 CDT Subject: General Message Patient called and wanted me to pass along to you she was able to get a hold of her eye doctor and she has open angle glaucoma any other questions she can be reached at home [phone] Thanks Sujatha Source: [facility] [employer] Document Id: [id number] Electronically signed by Conversion, [facility] Supervisor [employer] [id number] at 02/10/2017 12:36 PM CDT Miscellaneous - [place] Varma APRN, C.N.P. - 12/09/2013 10:28 AM CDT Ambulatory Patient Summary [id number] [place], [place] [phone] Visit Information Name: BRIANA LEON [facility] Number: [id number] Current Date: 12/09/2013 10:28:56 Physicians Attending Provider: ALBANIA VARMA RN, CHILD CARE TEACHER Primary Care Provider: ALBANIA VARMA RN, CHILD CARE TEACHER BRIANA LEON has been given the following [...] 1 Tablet(s), Oral, two times a day [employer] [phone] fluticasone nasal (Flonase 0.05 mg/inh nasal spray) 2 [place](s), Nostrils(Both), once a day gabapentin (gabapentin 300 [...] the Following Medications: Medication list as of 12-09-13 10:28 Attention: If you have any medications at [...] appointment detail needed. Your Goals/Additional instructions: Source: [facility] POWERCHART Document Id: [id number] Miscellaneous - [place] Varma APRN, C.N.P. - 12/09/2013 10:28 AM CDT Ambulatory Discharge Medication List [address] [place], [place] [phone] Visit Information Name: BRIANA LEON [facility] Number: [id number] Visit Date: 12/09/2013 10:28:53 Attending Provider: ALBANIA VARMA RN, CHILD CARE TEACHER Primary Care Provider: ALBANIA VARMA RN, CHILD CARE TEACHER BRIANA LEON has been given the following [...] 1 Tablet(s), Oral, two times a day [employer] [phone] fluticasone nasal (Flonase 0.05 mg/inh nasal spray) 2 [place](s), Nostrils(Both), once a day gabapentin (gabapentin 300 [...] the Following Medications: Medication list as of 12-09-13 10:28 Attention: If you have any medications at home that are not on this list, DO NOT take them until youcontact your provider for clarification. Give a copy of your medication list to your primary care provider. Update your medication list any time medications or doses are changed and carry your medication list at all times in case of emergency. Additional Information: Source: [facility] POWERCHART Document Id: [id number] Miscellaneous - Sujatha Batista L.P.N. - 12/09/2013 9:31 AM CDT Adult Roll Scale Man Intake/History Adult Roll Scale Man Intake/History Entered On: 12/09/2013 9:36 CDT Performed On: 12/09/2013 9:31 CDT by SUJATHA BATISTA LPN Intake Chief Complaint : Results of egd, having episodes of vertigo was able to do PT treatment hasbeen taking meclizine but feels it is affecting eyes, has been taking gabapentin differently due to tingling in legs please review Temperature Core : 36.2 DegC(Converted to: 97.2 DegF) (LOW) Peripheral Pulse Rate : 76 /min Respiratory Rate : 16 /min Heart Rhythm : Regular Systolic Blood Pressure : 122 mmHg Diastolic Blood Pressure : 60 mmHg NIBP Mean : 81 mmHg BP Location : Left upper extremity Blood Pressure Cuff Size : Large Actual Weight : 74 kg(Converted to: 163 lb 2 oz) Weight Source : Standing scale Dosing Weight Clinic : 74 kg SUJATHA BATISTA LPN - 12/09/2013 9:31 CDT General Info Information Given By : Patient Preferred Communication Mode : Verbal Languages : Slovak SUJATHA BATISTA LPN - 12/09/2013 9:31 CDT Subjective Pain Symptoms : Yes SUJATHA BATISTA LPN - 12/09/2013 9:31 CDT Pain Pain Assessment Grid Pain 1 Location : Lower leg Laterality : Bilateral Intensity : 6 SUJATHA BATISTA LPN - 12/09/2013 9:31 CDT Dependent Habits Tobacco Use/Currently Using : No Exposure to Tobacco Smoke : Care provider denies smoking in home Smoking Status : Never smoker SUJATHA BATISTA LPN - 12/09/2013 9:31 CDT Tobacco Use Grid Last Use : never SUJATHA BATISTA LPN - 12/09/2013 9:31 CDT Caffeine Use Grid Caffeine Use : Current Type : Coffee Frequency : Weekly SUJATHA BATISTA LPN - 12/09/2013 9:31 CDT Recreational Drug Use Grid Drug Use : None SUJATHA BATISTA LPN - 12/09/2013 9:31 CDT Source: [employer] Document Id: [id number]!42 documented in this encounter Plan of Treatment Not on filedocumented as of this encounter Visit Diagnoses Not on filedocumented in this encounter
--- OUTSIDE RECORDS SUMMARY | 2022-05-06 13:12 | XMS_ITS | Encounter Summary ---
:1935 Author Organization [facility] Address [address] [place] [address] Care Team Providers Name Role Phone Unavailable Primary Care Provider Unavailable Encounter Details Date Type Department Care Team Description 06/07/2013 Hospital Encounter HX [facility] [place] Varma, CYRIL, C.N.P., D. N.P. [address] [place] [address] (Wo rk) Social History Tobacco Use Types Packs/Day Years Used Date Smoking Tobacco: Never Assessed Sex Assigned at Date Recorded Not on file documented as of this encounter Last Filed Vital Signs Vital Sign Reading Time Taken Comments Blood Pressure 128/60 06/07/2013 8:01 AM CDT Pulse 78 06/07/2013 8:01 AM CDT Temperature - - Respiratory Rate 16 06/07/2013 8:01 AM CDT Oxygen Saturation - - Inhaled Oxygen Concentration - - Weight 73.9 kg (162 lb 14.7 oz) 06/07/2013 8:01 AM CDT Height - - Body Mass Index 27.81 05/15/2013 8:35 PM CDT documented in this [...] Progress Notes [place] Varma APRN, C.N.P. - 06/07/2013 7:55 AM CDT [id number] CHIEF COMPLAINT/REASON FOR VISIT 1. Recent fall. 2. Fractured ribs. 3. Hyponatremia. 4. Vertigo. HISTORY OF PRESENT ILLNESS Briana is a very pleasant 78-year-old who comes in today for the above issues. She had fallen on May 12 in a shower cracked ribs and bruising, was in the hospital for 4-days follow-up. She currentlyis weaning off her Oxycodone. She is using the Extended Release only at night. She does have some short acting Oxycodone also. She continues to take her Gabapentin, her Ibuprofen 3 times daily and Tylenol 3 times daily. She feels that she overall does pretty well during the day, it is very slow. She continues to have significant pain which she will rate of about a 4 out of 10 regularly, at night it seems to be a little bit more. She denies any blood in her urine. She did have some recent vertigo that is now much improved, only noted when she moves quite fast. Otherwise, she denies any constipation.She did have some post hospitalization diarrhea that is much improved. She was a little bit worried about her history of diverticulitis, however, is having no current symptoms and doing otherwise well. CURRENT MEDICATIONS Please see the EMR for those details. We did not really change anything. We will be weaning off her Oxycodone within the next 10 days, and will be continuing with her ibuprofen, watching for any GI issues and her Acetaminophen. ALLERGIES Please see the EMR. SYSTEMS REVIEW As noted above. No fevers or chills, PAST MEDICAL/SURGICAL HISTORY Please see the EMR. VITAL SIGNS Please see the EMR. PHYSICAL EXAMINATION IN GENERAL: Patient appears non-distressed. CARDIAC: Her heart with a regular rate and rhythm. LUNGS: Her lungs are clear to auscultation with good respiratory effort. ABDOMEN: Soft. There is no organomegaly. Normoactive bowel sounds and no tenderness on her anterior abdomen. MUSCULOSKELETAL: She has chest wall pain noted significantly on her left side with bruising. She also has some left buttock pain noted there also. No spinal, lumbar, thoracic or cervical spinal pain atthis time. EXTREMITIES: Without any edema. IMPRESSION/REPORT/PLAN 1. Rib fractures status post fall. 2. Hyponatremia. 3. Vertigo much improved. PLAN: Today I would like to obtain a hemoglobin as well as a sodium. We're going to work on weaningoff her medications. I really do worry about her Ibuprofen, being 3 times daily. I hope to wean thatoff, however I think we will get the Oxycodone down first. Her Ibuprofen is probably giving her the most relief but is giving her some bloating in her abdomen. I will plan to reilly her in 2 weeks to see how she is doing and then plan to see her back probably in the next month and we will continue to work on the Ibuprofen. She has will watch for GI upset and any new symptoms. PATIENT EDU #1 Patient Education Ready to learn No apparent learning barriers were identified Learning preferences include listening Explained diagnosis and treatment plan Patient/Child/Caregiver expressed understanding of the content. Aakash Quiroga/tommy Electronically Signed By: ALBANIA VARMA RN, CHANGE MANAGEMENT MANAGER On: 06/13/2013 05:37 AM Source: [facility] MHSDOLBEYNONRADSYS Document Id: [id number] documented in this encounter Miscellaneous Notes Miscellaneous - Albania Varma APRN, C.N.P. - 06/09/2013 12:18 PM CDT Normal Results Letter 09 June 2013 BRIANA LEON [address] [facility] [phone] Dear BRIANA LEON, I am pleased to report that your results from the following diagnostic test(s) are stable and sodiumimproved. No change in regiment. Please follow up with us as we discussed during your visit or sooner if you have any concerns. If you have questions or concerns, please do not hesitate to call our office. Result Name Current Result Previous Result Normal Range Sodium Lvl (mM/L) 136.0 06/07/2013 (L) 132.2 05/23/2013 (L) 128.8 05/15/2013 135.0 - 145.0 Hgb (g/dL) (L) 11.6 06/07/2013 (L) 11.7 05/23/2013 12.6 05/15/2013 12.0 - 15.5 Sincerely, ALBANIA VARMA [address] [place] [address] Electronic Signature Electronically Signed By: ALBANIA VARMA RN, CHANGE MANAGEMENT MANAGER On: 09 June 2013 This document has images extracted. Source: [facility] [employer] Document Id: [id number] Miscellaneous - [place] Varma, CYRIL, C.N.P. - 06/07/2013 9:49 AM CDT General Message Document Contains Addenda Addendum by SUJATHA BATISTA LPN on 24 June 2013 12:01:34 CDT From: SUJATHA BATISTA LPN To: ALBANIA AVRMA RN, CHANGE MANAGEMENT MANAGER; Sent: 06/24/2013 12:01:34 CDT Subject: RE: General Message Spoke with patient she has been seeing PT for treatments of the vertigo she continues to have episodes if she is not careful but it is getting better other kaba she is better. she will continue with thearpy and follow up as needed Thanks sujatha Addendum by SUJATHA BATISTA LPN on 24 June 2013 10:27:41 CDT Message left on patients personal voicemail to call back with follow up and if any concerns Addendum by SUJATHA BATISTA LPN on 07 June 2013 10:03:34 CDT 06/21/13 From: ALBANIA VARMA RN, CHANGE MANAGEMENT MANAGER To: SUJATHA BATISTA LILY; Sent: 06/07/2013 09:49:59 CDT Subject: General Message please call and check on in 2 wks. Source: [facility] POWERCHART Document Id: [id number] Electronically signed by Conversion, [facility] Service Tester [id number] at 02/11/2017 11:37 PM CDT Miscellaneous - [place]ia Varma APRN, C.N.P. - 06/07/2013 8:38 AM CDT Ambulatory Patient Summary [id number] [place] [address] Visit Information Name: BRIANA LEON [facility] Number: [id number] Current Date: 06/07/2013 08:38:29 Physicians Attending Provider: ALBANIA VARMA RN, CHANGE MANAGEMENT MANAGER Primary Care Provider: ALBANIA VARMA RN, CHANGE MANAGEMENT MANAGER Your Medications Here is a list of your medications. It is important to take your medications as directed. Use a pillbox or chart to help remind you to take your medications. Please let your doctor or nurse know if you have problems taking your medications. Medication/Strength Dose Route Frequency Indications/Special Instructions/Comments/Notes acetaminophen (acetaminophen 325 mg oral tablet) 650 mg Oral three times a day as needed for Pain ibuprofen (ibuprofen 600 mg oral tablet) See Instructions 1 tab(s) PO three times per day with food oxyCODONE (oxyCODONE 10 mg oral tablet, extended release) 10 mg Oral once a day (at bedtime) x 10 days (weaning off) gabapentin (gabapentin 300 mg oral capsule) See Instructions one am , one at noon and 3 cap(s) PO Bedtime estradiol topical (Vagifem 10 mcg vaginal tablet) [...] Your Goals/Additional instructions: Source: [facility] POWERCHART Document Id: [id number] Miscellaneous - [place]ia Varma APRN, C.N.P. - 06/07/2013 8:38 AM CDT Ambulatory Depart Summary [id number] [place] [address] Visit Information Name: BRIANA LEON [facility] Number: [id number] Visit Date: 06/07/2013 08:38:28 Attending Provider: ALBANIA VARMA RN, CHANGE MANAGEMENT MANAGER Primary Care Provider: ALBANIA VRAMA RN, CHANGE MANAGEMENT MANAGER BRIANA LOEN has been given the following list of medications: Your Medications It is important to take your medications as directed. Use a pill box or chart to help remind you to take your medications. Please let your doctor or nurse know if you have problems taking your medications. Medication/Strength Dose Route Frequency Indications/Special Instructions/Comments/Notes acetaminophen (acetaminophen 325 mg oral tablet) 650 mg Oral three times a day as needed for Pain ibuprofen (ibuprofen 600 mg oral tablet) See Instructions 1 tab(s) PO three times per day with food oxyCODONE (oxyCODONE 10 mg oral tablet, extended release) 10 mg Oral once a day (at bedtime) x 10 days (weaning off) gabapentin (gabapentin 300 mg oral capsule) See Instructions one am , one at noon and 3 cap(s) PO Bedtime estradiol topical (Vagifem 10 mcg vaginal tablet) [...] clarification. Additional Information: Source: [facility] POWERCHART Document Id: [id number] Miscellaneous - Sujatha Batista L.P.N. - 06/07/2013 8:01 AM CDT Adult Internet Network Specialist Intake/History Adult Internet Network Specialist Intake/History Entered On: 06/07/2013 8:08 CDT Performed On: 06/07/2013 8:01 CDT by SUJATHA BATISTA LPN Intake Chief Complaint : fallMay 12 cracked ribs bruising in the hospital for 4 days check up Temperature Core : 36.2 DegC(Converted to: 97.2 DegF) (LOW) Peripheral Pulse Rate : 78 /min Respiratory Rate : 16 /min Heart Rhythm : Regular Systolic Blood Pressure : 128 mmHg Diastolic Blood Pressure : 60 mmHg NIBP Mean : 83 mmHg BP Location : Right upper extremity Blood Pressure Cuff Size : Regular Actual Weight : 73.9 kg(Converted to: 162 lb 15 oz) Weight Source : Standing scale Dosing Weight Clinic : 73.9 kg SUJATHA BATISTA LPN - 06/07/2013 8:01 CDT General Info Information Given By : Patient Preferred Communication Mode : Verbal Languages : [place] Islander SUJATHA BATISTA LPN - 06/07/2013 8:01 CDT Subjective Pain Symptoms : Yes SUJATHA BATISTA LPN - 06/07/2013 8:01 CDT Pain Pain Assessment Grid Pain 1 Pain 2 Location : Buttock Other: rib Laterality : Left Left Intensity : 4 4 SUJATHA BATISTA LPN - 06/07/2013 8:01 CDT SUJATHA BATISTA LPN - 06/07/2013 8:01 CDT Dependent Habits Tobacco Use/Currently Using : No Exposure to Tobacco Smoke : Care provider denies smoking in home Smoking Status : Never smoker SUJATHA BATISTA LPN - 06/07/2013 8:01 CDT Tobacco Use Grid Last Use : never SUJATHA BATISTA LPN - 06/07/2013 8:01 CDT Caffeine Use Grid Caffeine Use : Current Type : Coffee Frequency : Weekly SUJATHA BATISTA LPN - 06/07/2013 8:01 CDT Recreational Drug Use Grid Drug Use : None SUJATHA BATISTA LPN 06/07/2013 8:01 CDT [facility] Document Id: [id number] CDT!46 documented in this encounter Plan of Treatment Not on filedocumented as of this encounter Procedures Procedure Name Priority Date/Time Associated Diagnosis Comme nts HEMOGLOBIN, B Routine 06/07/2013 8:53 AM Results for this CDT procedure are i n the results section . SODIUM, S/P Routine 06/07/2013 8:53 AM Results f or this CDT procedure are i n the results section . documented in this encounter Results (ABNORMAL) Hemoglobin (06/07/2013 8:53 AM CDT) P athologist Signature Hemoglobin 11.6 (L) 12.0 - 15.5 POWERCHART GDL Specimen (Source) Anatomical Collection Method Collection Time Re ceived Time Location / / Volume Laterality Blood 06/07/2013 8:53 AM CDT Albania Varma APRN, C.N.P., D.N.P. LAB BLOOD ADD-ON Performing Organization Address City/[facility] Code Phon e Number POWERCHART Sodium (06/07/2013 8:53 AM CDT) athologist Signature Sodium, S 136.0 135.0 - POWERCHART 145.0 MML Specimen (Source) Anatomical Collection Method Collection Time Re ceived Time Location / / Volume Laterality Blood 06/07/2013 8:53 AM CDT [place] Varma APRN, C.N.P., D.N.P. LAB BLOOD ADD-ON Performing Organization Address City/State/[facility] Code Phon e Number POWERCHART documented in this encounter Visit Diagnoses Not on filedocumented in this encounter
--- OUTSIDE RECORDS SUMMARY | 2022-05-06 13:12 | XMS_ITS | Encounter Summary ---
:1935 Author Organization [facility] Address [address] [place] [address] Care Team Providers Name Role Phone Unavailable Primary Care Provider Unavailable Encounter Details Date Type Department Care Team Description 05/23/2013 Hospital Encounter HX [facility] Cielo Bhakta M.D. [address] [place] [phone] (Wo rk) Social History Tobacco Use [...] Name Priority Date/Time Associated Diagnosis Comme nts C DIFF SRCE Routine 05/23/2013 2:21 PM Results f or this CDT procedure are i n the results section. C. DIFFICILE TOXIN, Routine 05/23/2013 2:21 PM Re sults for this F CDT procedure are i n the results section. documented in this encounter Results C. difficile Toxin, F (05/23/2013 2:21 PM CDT) athologist Signature C. difficile Negative POWERCHART Toxin, F Specimen (Source) Anatomical Collection Method Collection Time Re ceived Time Location / / Volume Laterality 05/23/2013 2:21 PM CDT Narrative POWERCHART - 05/23/2013 11:36 PM CDT Laboratory developed test. Test Performed by: [address] [address] Clerk Of Works: Scot ybarra III, M.D. Cielo Turner M.D. LAB MICROBIOLOGY - GENE RAL ORDERABLES Performing Organization Address City/[facility] Code Phon e Number POWERCHART HX-C diff Srce (05/23/2013 2:21 PM CDT) athologist Signature HXC diff STOOL POWERCHART Srce-Sunshine Specimen (Source) Anatomical Collection Method Collection Time Re ceived Time Location / / Volume Laterality 05/23/2013 2:21 PM CDT Cielo Turner M.D. LAB HISTORICAL ORDERS Performing Organization Address City/State/ZIP Code Phon e Number POWERCHART documented in this encounter Visit Diagnoses Not on filedocumented in this encounter
--- OUTSIDE RECORDS SUMMARY | 2022-05-06 13:13 | XMS_ITS | Encounter Summary ---
:1935 Author Organization [facility] Address [address] [place] [address] Care Team Providers Name Role Phone Unavailable Primary Care Provider Unavailable Encounter Details Date Type Department Care Team Description 02/11/2011 - Hospital Encounter HX [facility] Diego Mary Alek, 09/12/2011 SRV CYRIL, C.N.P., D.N.P. [address] [place] [address] Social History Tobacco Use Types Packs/Day Years Used Date Smoking Tobacco: Never Assessed Sex Assigned at Date Recorded Not on file documented as of this encounter Discharge Summaries Faviola Villalobos, P.T. - 02/11/2011 12:00 AM CDT [id number] IMPRESSION/REPORT/PLAN Patient was evaluated and treated for BPPV under the referral of Dr. Tabitha Samson. She was seen in the ER and then seen and followed up as an outpatient. She was seen for a total of two sessions. Plan of care included patient education, PLUG PASTER maneuvers and home positioning. She achieved all goals and is symptom free at this time. Patient will be discharged due to symptom resolution. Faviola Villalobos M.P.T. /tommy Electronically Signed By: FAVIOLA VILLALOBOS On: 02/26/2011 03:18 pm Modified by and Electronically Signed by: FAVIOLA VILLALOBOS On: 02/26/2011 03:18 pm [facility] Document Id: [id number] documented in this encounter Medications at Time of Discharge Medication Sig Dispensed Refills Start Date End Date CYANOCOBALAMIN, VITAMIN Take 1,000 mcg by 0 10/25 B-12, ORAL mouth daily. MULTIVITAMIN ORAL Take 1 tablet by 0 10/25/2010 mouth daily. CYCLOSPORINE (RESTASIS Administer into both 0 05/13/2019 OPHT) eyes every 12 (twelve) hours. DORZOLAMIDE HCL/TIMOLOL Administer 1 drop 0 10/2505/13/2019 MALEAT (COSOPT OPHT) into the right eye daily. documented as of this encounter Progress Notes Faviola Villalobos P.T. - 03/11/2011 12:00 AM CDT [id number] IMPRESSION/REPORT/PLAN Performed continuous ultrasound over the left low back at 1 MHz., 1.5 Larkin per centimeter squared times eight minutes. We then reviewed her home exercise program including dynamic lumbar stabilization with isometric hip flexion, reviewed this. She was confusing this with single knee to chest, clarified this, demonstrated with independence, verbalized understanding. PATIENT EDU #1 Patient Education Ready to learn. No apparent learning barriers were identified. Learning preferences include listening. Explained diagnosis and treatment plan. Patient/Child/Caregiver expressed understanding of the content. Also, progressed her bridging exercise to bridging with hip abduction with a green Thera-band. She tolerated this well all at 2-times, 10 repetitions daily. Patient may increase this to 3-times, 10-repetitions as this becomes easy. Tolerated well. Total treatment time today was 15-minutes. PLAN The plan is to continue as needed as patient's pain continues to improve. She has no questions. She does not need to return. CHIEF COMPLAINT/REASON FOR VISIT Patient is reporting significant reductions in pain levels. She is working on her home exercise program, does have a question on the new exercise that we added last time. She also reports that she is walking up to a mile a day which she has not done for a long time. Over-all, she is doing significantly better. She is having more days without pain than she has had in a long time and her days of pain free outnumber the days with pain. Unique Joseph /tommy Electronically Signed By: FAVIOLA VILLALOBOS On: 03/12/2011 02:24 PM Source: [facility] Document Id: [id number] Faviola Villalobos P.T. - 02/25/2011 12:00 AM CDT [id number] CHIEF COMPLAINT/REASON FOR VISIT She has noted significant reduction in her pain level, she is actually able to sleep through the night. She reports that she does have periods of being pain-free, at worse her pain is a 5 out of 10. IMPRESSION/REPORT/PLAN We performed continuous ultrasound over the left low back at 1 megahertz, 1.5 larkin per centimeters squared x a total of 8 minutes. WE then progressed to her home exercise program adding dynamic lumbar stabilization with isometric hip flexion at 2 x ten repetitions once a day which she will add to the bridging and dynamic lumbar stabilization with lower extremity knee extension. The patient was given a written handout with illustrations #1 Patient Education Ready to learn No apparent learning barriers were identified Learning preferences include listening Explained diagnosis and treatment plan Patient expressed understanding of the content The patient tolerated treatment well. Plan is to continue. Patient would like to come back in two weeks for reassessment. The patient will contact us if she has any problems between now and then. Unique Joseph /heather Electronically Signed By: FAVIOLA VILLALOBOS On: 02/26/2011 02:53 PM Source: [facility] [employer] Document Id: [id number] Faviola Villalobos P.T. - 02/12/2011 12:00 AM CDT [id number] REFERRAL SOURCE Patient is referred to physical therapy by Mary Varma for back pain and a recheck of the lower extremity. HISTORY OF CURRENT CONDITION Patient has been complaining of left low back pain which reaches an 8 out of 10 in intensity as well as sensitivity down the medial aspect of the left lower extremity and down the entire right lower extremity. Patient notes symptoms increase at night when sleeping. Doesn't typically notice it during the day when she does develop the pain she does lay down immediately, this feels pretty good but is unable to do this for prolonged periods of time. When patient is sleeping she is typically on her back with pillows underneath the knees; occasionally sleeps on her side with a pillow between the knees but she is not able to do this very often. Patient notes a gradual onset of symptoms which progressively have gotten worse. We had seen patient following her surgery status post an L-3 through 5 hemilaminectomies in L-3 through L-4 discectomies on February 152009. At that time she had some slight left low back pain which never resolved. She had improvements in the right lower extremity in which she had some radicular symptoms, had improved but again did not completely resolve. Patient reports that at this time she is not performing home exercise program, she is doing a walking program but notes her legs fatigue quickly and develops back pain with this. We had also recently seen her for an episode of BPPV, this has resolved. Currently she reports she is taking Tramadol at night for pain to sleep and Tylenol during the day. She is currently denying any changes in bowel or bladder function with the onset of her symptoms. PHYSICAL EXAMINATION Patient completes the Tug test, does not pose any increased risk of falls. She has not had any falls within the last year. Palpation does reveal sensitivity with the right anterior tibialis to touch. Palpation reveals ASIS greater trochanter PSIS are all equal in height, palpable discomfort in pain over the left low back as painful over the L-4, L-5 into the PSIS area on the left side. Trunk range of motion, flexion is limited by 25%, extension she is able to achieve neutral. Left side bending is within normal limits. Right side bending is limited by 50%. Manual muscle testing of the right lower extremities is a 4+ out of 5 with the left at a 5 out of 5. Straight leg raise is negative. Heel and toe walking is negative. She does have difficulty with heel walking due to the limited range of motion in her ankles; both achieved neutral, greater difficulty achieving the motion actively on the right. She does have swelling in the bilateral lower extremities. She has had this for prolonged period of time. She does continue to wear MARGO hose to control this. She did have this prior to surgery and has been addressed since surgery. Patient will be treated for back pain and lower extremity weakness and sensitivity. IMPRESSION/REPORT/PLAN We performed stretching including hamstring stretches, single knee to chest, piriformis stretches and gastroc stretches bilaterally. She will perform these in her home exercise program following a 15 to 20-minute hot pack application prior to going to bed at night. During the day she will go for a walk kind of mid-day followed by the stretches. We also gave her a wedge to try at night for sleeping to help with positioning. If this should increase her symptoms she will discontinue. If it should help she will use it for the full night. She tolerated treatment well, was given a written handout with illustrations, verbalized understanding. [facility] EDU #1 Patient Education Ready to learn. No apparent learning barriers were identified. Learning preferences include listening. Explained diagnosis and treatment plan. Patient/Child/Caregiver expressed understanding of the content. ASSESSMENT Tolerated treatment well. GOALS Patient goals to include: 1) Patient will safely and independently perform independent home exercise program in one to two weeks. 2) Patient will report a fifty-percent or greater reduction in pain in three to four weeks. 3) Patient will increase lower extremity strength by a minimum of one muscle grade in three to four weeks. 4) Patient will be able to sleep through the night without disruption from pain in three to four weeks. 5) Patient will increase range of motion by fifty-percent in three to four weeks. PLAN OF CARE Patient education in home exercise program, range of motion, stretching, strengthening, modalities if needed, and core stabilization for strengthening. REHAB POTENTIAL She has good rehab potential to achieve goals. PLAN Plan to see patient two to three times a week for up to three to four weeks. Ez Joseph. Co-Signature: Mary Varma N.P. /tommy Electronically Signed By: FAVIOLA VILLALOBOS On: 02/13/2011 09:35 AM Co-Signed By: MARY VARMA RN, PHARMACY GRADUATE INTERN On: 02/13/2011 09:37 AM Source: [facility] MHSDOLBEYNONRADSYS Document Id: [id number] documented in this encounter Plan of Treatment Not on filedocumented as of this encounter Visit Diagnoses Not on filedocumented in this encounter
--- OUTSIDE RECORDS SUMMARY | 2022-05-06 13:13 | XMS_ITS | Encounter Summary ---
:1935 Author Organization [facility] Address [address] [place] [address] Care Team Providers Name Role Phone Unavailable Primary Care Provider Unavailable Encounter Details Date Type Department Care Team Description 07/27/2012 Hospital Encounter HX [facility] Mary Varma, CYRIL, C.N.P., D. N.P. [address] [place] [address] (Wo rk) Social History Tobacco Use Types Packs/Day Years Used Date Smoking Tobacco: Never Assessed Sex Assigned at Date Recorded Not on file documented as of this encounter Last Filed Vital Signs Vital Sign Reading Time Taken Comments Blood Pressure 118/70 07/27/2012 10:58 AM COMMISSIONING EDITOR Pulse 72 07/27/2012 10:58 AM COMMISSIONING EDITOR Temperature - - Respiratory Rate 18 07/27/2012 10:58 AM COMMISSIONING EDITOR Oxygen Saturation - - Inhaled Oxygen Concentration - - Weight 75.5 kg (166 lb 7.2 oz) 07/27/2012 10:58 AM COMMISSIONING EDITOR Height - - Body Mass Index 28.77 06/17/2012 10:00 AM CDT documented in this [...] Progress Notes Mary Varma APRN, C.N.P. - 07/27/2012 10:50 AM CST [id number] CHIEF COMPLAINT/REASON FOR VISIT 1. Vertigo. 2. Immunization need. 3. Flatulence. 4. Medication refill. HISTORY OF PRESENT ILLNESS 1. Vertigo. Kathryn is a 77-year-old who has a known history of vertigo spells who states that she began having a dizzy spell four days ago. She stated it feels like the kate are moving and spinning. Shehas had something similar to this in the past. This started on Thursday. She states that Thursday she was miserable, however, it progressively has improved slightly. This past March she ended up in the Emergency Room for very similar symptoms and was treated with meclizine as well as physical therapy forHallpike-Jimmy maneuver which did seem to help. She has been doing some of her exercises most recentlyin hopes to resolve these symptoms sooner than later. 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 2. Flatulence. Patient has known history of diverticulitis. She is concerned as she has noted to be a bit more gassy in the past three months. She does not think she has changed her diet whatsoever. 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 She can't think of any changes in activity or drinks or foods that she has noted. 3. Immunization need. The patient needs her flu shot. In the past, she has had it in 3 various shots for one total dose which she does very well with. We will go ahead and administer that. 4. Medication refill. Patient was seen by a provider in [place] and was prescribed Vagifem and hasmisplaced her prescription and would like that refilled for atrophic vaginitis. CURRENT MEDICATIONS 1. Refilling her Vagifem. 2. Gas-X. SYSTEMS REVIEW She denies any changes in bowel or bladder habits. No infectious symptoms. No chest pain. No shortness of breath. PAST MEDICAL/SURGICAL HISTORY Please see the EMR. VITAL SIGNS Please see the EMR. PHYSICAL EXAMINATION GENERAL: Patient appears nondistressed. HEART: Her heart with a regular rate and rhythm. LUNGS: Lungs are clear to auscultation. ABDOMEN: Her abdomen with normoactive bowel sounds. She did have a little tenderness at her right and left lower quadrant to deep palpation. No suprapubic tenderness, but not real significant discomfort. No peritoneal signs. EXTREMITIES: No lower extremity edema. NEUROLOGIC: Cranial nerves 2-12 are grossly intact. IMPRESSION/REPORT/PLAN 1. Vertigo. It seems to be resolving on its own. She can continue the use of meclizine. If she does not have any improvement or her symptoms start worsening again, I will have her see physical therapy for readministration of the Hallpike-Jimmy maneuver. 2. Flatulence. We will have her just use Gas-X for that. I do not see any particular reason for it nor am I too concerned. If her symptoms seem to worsen even with her mild abdominal pain, she is to besure to let us know. 3. Immunization need. She needed a flu shot. This will be delivered to her in three shots. 4. Atrophic vaginitis. Refill her medication which she only takes twice weekly. PATIENT EDUCATION Ready to learn No apparent learning barriers were identified Learning preferences include listening Explained diagnosis and treatment plan Patient/Child/Caregiver expressed understanding of the content Aakash Quirgoa/joby Electronically Signed By: MARY VARMA RN, REPAIRER HAIRSPRING On: 07/27/2012 03:49 PM Source: [facility] MHSDOLBEYNONRADSYS Document Id: [id number] ISSIONING EDITOR documented in this encounter Miscellaneous Notes Miscellaneous - Mary Varma APRN, C.N.P. - 07/27/2012 11:40 AM CST Ambulatory Patient Summary [address] [address] Visit Information Name: KATHRYN LEON Current Date: 07/27/2012 11:40:23 Physicians Attending Provider: MARY VARMA RN, REPAIRER HAIRSPRING Primary Care Provider: MARY VARMA RN, REPAIRER HAIRSPRING Your Medications Here is a list of your medications. It is important to take your medications as directed. Use a pillbox or chart to help remind you to take your medications. Please let your doctor or nurse know if you have problems taking your medications. Medication/Strength Dose Route Frequency Indications/Special Instructions/Comments simethicone (Gas-X 125 mg oral tablet, chewable) 125 mg Oral estradiol topical (Vagifem 10 mcg vaginal tablet) 10 mcg Vaginal 2 times a week calcium citrate (Citracal) once a day *prednisoLONE ophthalmic (Prednisolone Acetate 1%) 1 drop(s) Eye(Right) every 2 hours *gatifloxacin ophthalmic (gatifloxacin 0.5% ophthalmic solution) 1 drop(s) Eyes(Both) two times a day *travoprost ophthalmic (travoprost 0.004% ophthalmic solution) 1 drop(s) Eye(Right) every evening omeprazole (omeprazole 40 mg oral delayed release capsule) 40 mg Oral once a day gabapentin (gabapentin 300 mg oral capsule) 1 cap(s) in the morning and 2 cap(s) at bedtime Oral as directed ID [id number] fluticasone nasal (Flonase 0.05 mg/inh nasal spray) 2 spray(s) Nostrils(Both) once a day fexofenadine-pseudoephedrine (Rochelle-D 12 Hour oral tablet, extended release) 1 tab(s) Oral two times a day cycloSPORINE ophthalmic (Restasis) one drop Eyes(Both) every 12 hours *brimonidine ophthalmic (Alphagan P) one drop Eye(Right) three times a day ferrous gluconate (ferrous gluconate) Oral two times [...] No Appointments found Your Goals/Additional instructions: Source: [facility] POWERCHART Document Id: [id number] ISSIONING EDITOR Miscellaneous - Mary Varma APRN, C.N.P. - 07/27/2012 11:40 AM CST Ambulatory Depart Summary [address] [address] Visit Information Name: CAROLYN ARCHANA Visit Date: 07/27/2012 11:40:20 Attending Provider: MARY VARMA RN, REPAIRER HAIRSPRING Primary Care Provider: MARY VARMA RN, REPAIRER HAIRSPRING KATHRYN LEON has been given the following list of medications: Your Medications It is important to take your medications as directed. Use a pill box or chart to help remind you to take your medications. Please let your doctor or nurse know if you have problems taking your medications. Medication/Strength Dose Route Frequency Indications/Special Instructions/Comments simethicone (Gas-X 125 mg oral tablet, chewable) 125 mg Oral estradiol topical (Vagifem 10 mcg vaginal tablet) 10 mcg Vaginal 2 times a week calcium citrate (Citracal) once a day *prednisoLONE ophthalmic (Prednisolone Acetate 1%) 1 drop(s) Eye(Right) every 2 hours *gatifloxacin ophthalmic (gatifloxacin 0.5% ophthalmic solution) 1 drop(s) Eyes(Both) two times a day *travoprost ophthalmic (travoprost 0.004% ophthalmic solution) 1 drop(s) Eye(Right) every evening omeprazole (omeprazole 40 mg oral delayed release capsule) 40 mg Oral once a day gabapentin (gabapentin 300 mg oral capsule) 1 cap(s) in the morning and 2 cap(s) at bedtime Oral as directed ID [id number] fluticasone nasal (Flonase 0.05 mg/inh nasal spray) 2 spray(s) Nostrils(Both) once a day fexofenadine-pseudoephedrine (Rochelle-D 12 Hour oral tablet, extended release) 1 tab(s) Oral two times a day cycloSPORINE ophthalmic (Restasis) one drop Eyes(Both) every 12 hours *brimonidine ophthalmic (Alphagan P) one drop Eye(Right) three times a day ferrous gluconate (ferrous gluconate) Oral two times [...] your provider for clarification. Additional Information: Source: [facility] POWERCHART Document Id: [id number] ISSIONING EDITOR Payton - Sujatha Batista L.P.N. - 07/27/2012 11:07 AM CST Health Assessment Health Assessment Entered On: 07/27/2012 11:07 COMMISSIONING EDITOR Performed On: 07/27/2012 11:07 COMMISSIONING EDITOR by SUJATHA BATISTA LPN Health Assessment Complete Health Assessment Complete or Modified : Annual Health Assessment Annual Health Assessment Completed : Yes SUJATHA BATISTA LPN - 07/27/2012 11:07 COMMISSIONING EDITOR Nutrition Nutrition Risk Factors by History Adult : None SUJATHA BATISTA LPN - 07/27/2012 11:07 COMMISSIONING EDITOR Functional Current Daily Living Assistance : None SUJATHA BATISTA LPN - 07/27/2012 11:07 COMMISSIONING EDITOR Dependent Habits Tobacco Use/Currently Using : No Exposure to Tobacco Smoke : Care provider denies smoking in home Smoking Status : Never smoker SUJATHA BATISTA LPN - 07/27/2012 11:07 COMMISSIONING EDITOR Tobacco Use Grid Last Use : never SUJATHA BATISTA LPN - 07/27/2012 11:07 COMMISSIONING EDITOR Caffeine Use Grid Caffeine Use : Current Type : Coffee Frequency : Weekly SUJATHA BATISTA LPN - 07/27/2012 11:07 COMMISSIONING EDITOR Recreational Drug Use Grid Drug Use : None SUJATHA BATISTA LPN - 07/27/2012 11:07 COMMISSIONING EDITOR Psychosocial Domestic Abuse Concerns : None SUJATHA BATISTA LPN - 07/27/2012 11:07 COMMISSIONING EDITOR Advance Directive Advanced Directives : No Advance Directive Additional Information : Yes SUJATHA BATISTA LPN - 07/27/2012 11:07 COMMISSIONING EDITOR Educ Needs Learning Style Preference Adult Grid Patient : Demonstration Family : None SUJATHA BATISTA LPN - 07/27/2012 11:07 COMMISSIONING EDITOR Source: [facility] POWERCHART Document Id: [id number] ISSIONING EDITOR Sujatha Soni L.PChelsey - 07/27/2012 10:58 AM CST Adult Charge Weigher Intake/History Adult Charge Weigher Intake/History Entered On: 07/27/2012 11:07 COMMISSIONING EDITOR Performed On: 07/27/2012 10:58 COMMISSIONING EDITOR by SUJATHA BATISTA LPN Intake Chief Complaint : Medications dizzy spells wakes up in the am hx vertigo last all day long rx helps little, Flu shot reaction break up into 3 doses, stomache gas more then usual questions symptomsdiverticulitis cause gas, [facility] ? med for vag dryness rx nee Temperature Core : 36.7C(Converted to: 98.1DegF) Peripheral Pulse Rate : 72/min Respiratory Rate : 18/min Heart Rhythm : Regular Systolic Blood Pressure : 118mmHg Diastolic Blood Pressure : 70mmHg NIBP Mean : 86mmHg BP Location : Right upper extremity Blood Pressure Cuff Size : Regular Actual Weight : 75.5kg(Converted to: 166lb 7oz) Weight Source : Standing scale Dosing Weight Clinic : 75.50kg SUJATHA BATISTA LPN - 07/27/2012 10:58 COMMISSIONING EDITOR Subjective Pain Symptoms : No SUAJTHA BATISTA LPN - 07/27/2012 10:58 COMMISSIONING EDITOR Dependent Habits Tobacco Use/Currently Using : No Exposure to Tobacco Smoke : Care provider denies smoking in home Smoking Status : Never smoker SUJATHA BATISTA LPN - 07/27/2012 10:58 COMMISSIONING EDITOR Tobacco Use Grid Last Use : never SUJATHA BATISTA LPN - 07/27/2012 10:58 COMMISSIONING EDITOR Alcohol Use : Yes SUJATHA BATISTA LPN - 07/27/2012 10:58 COMMISSIONING EDITOR Caffeine Use Grid Caffeine Use : Current Type : Coffee Frequency : Weekly SUJATHA BATISTA LPN - 07/27/2012 10:58 COMMISSIONING EDITOR Recreational Drug Use Grid Drug Use : None SUJATHA BATISTA LPN - 07/27/2012 10:58 COMMISSIONING EDITOR Allergy Allergies (Active) Glutens Estimated Onset Date: Unspecified ; Created By: PATTI ALMENDAREZ LPN; Reaction Status: Active; Category: Drug ; Substance: Glutens ; Type: Allergy ; Updated By: PATTI ALMENDAREZ LPN; Reviewed Date: 01/21/2012 9:26 CDT Nuts Estimated Onset Date: Unspecified ; Created By: PATTI ALMENDAREZ LPN; Reaction Status: Active ; Category: Food ; Substance: Nuts ; Type: Allergy ; Updated By: PATTI ALMENDAREZ LPN; Reviewed Date: 01/21/2012 9:26 CDT Source: [facility] [employer] Document Id: [id number] ISSIONING EDITOR documented in this encounter Plan of Treatment Not on filedocumented as of this encounter Visit Diagnoses Not on filedocumented in this encounter
--- OUTSIDE RECORDS SUMMARY | 2022-05-06 13:13 | XMS_ITS | Encounter Summary ---
:1935 Author Organization [facility] Address [address] [place] [address] Care Team Providers Name Role Phone Unavailable Primary Care Provider Unavailable Encounter Details Date Type Department Care Team Description 01/21/2011 - Hospital Encounter HX [facility] Mary Alvarez, 10/06/2011 [place] CYRIL C.N.PDann, D.N.P. [address] [place] [id number] Social History Tobacco Use Types Packs/Day [...] as of this encounter Progress Notes Faviola Villalobos, P.T. - 01/30/2011 12:00 AM CDT [id number] TELEPHONE CONVERSATION I talked with patient, she has recently followed up with her primary physician, Mary Varma. She reports that she is feeling significantly better. She just completed the medication. Reports that the nausea has improved, she no longer has any dizziness. Over-all, patient is tolerating everything very well. The plan would be to discharge her for the dizziness. Unique Joseph Co-Signature: Mary Varma N.P. /tommy Electronically Signed By: FAVIOLA VILLALOBOS On: 02/03/2011 09:06 AM Source: [facility] MHSDOLBEYNONRADSYS Document Id: [id number] Mary Varma APRN, C.N.PDann - 01/21/2011 12:00 AM CDT [id number] CHIEF COMPLAINT/REASON FOR VISIT 1. ER followup. HISTORY OF PRESENT ILLNESS 1. Kathryn is a 74-year-old female who comes in today for a recheck of an ER visit that occurred on Thursday afternoon. She woke up in the morning with some significant dizziness and her symptoms seemed to progress. She has some discomfort in her left lower quadrant that radiated to her back. She got up, had her help her dress, and due to significant dizziness with some nausea and dry heaves and the discomfort in her side, she was taking to [facility] ER for further evaluation via ambulance. She was evaluated with laboratory studies as well as a CAT scan and diagnosed with diverticulitis, treated with ciprofloxacin and Flagyl. Also, she was given meclizine and did see physical therapy for her significant vertigo which she thinks has somewhat improved. She has actually only used a few doses of meclizine but feels that the Hallpike-Jimmy treatments have actually helped more than anything. She states that she is here today stating that she is feeling somewhat better. Otherwise she has noted a sore throat the past day or two and food is tasting abnormal. Her abdominal discomfort has somewhat improved but not resolved. She has remained afebrile and her vertigo again has improved. CURRENT MEDICATIONS Please see EMR. ALLERGIES Glutens and nuts. SYSTEMS REVIEW She is having normal bowel and bladder habits. VITAL SIGNS Please see EMR. PHYSICAL EXAMINATION General: Patient appears nondistressed. She is sitting quite erect but has no neurologic changes. Ears: TMs were clear bilaterally. Eyes: No significant nystagmus noted. Throat is erythremic. Her tongue is coated with a white coating consistent with candidiasis that is not removal. Lymph with no cervical or supraclavicular lymphadenopathy. Heart with a regular rate and rhythm. Her lungs are clear. Her abdomen is soft. I did not lay her back due to the vertigo, but she did not have any tenderness with deep palpation in the left lower quadrant and normoactive bowel sounds x4 quadrants. IMPRESSION/REPORT/PLAN 1. Diverticulitis. Continue with her antibiotics until complete. I would like to see her back in about two to three weeks to be sure that she has full resolution. I do think that since she has had two diverticular episode that have landed her in the ER in the past 3-month, once she is recovered she may be due for a colonoscopy recheck. She was actually told at her last colonoscopy in 2006 that she should have a recheck in five years, but I think we should do it early, but I want patient to completely be recovered prior to doing that. 2. Oral candidiasis. We will treat with nystatin swish and swallow. Instructions given to patient in regards to that. 3. Vertigo. Patient seems to be doing a little bit better. We will continue with her regimen which she has with physical therapy. I answered all her questions. PATIENT EDUCATION: Ready to learn No apparent learning barriers were identified Learning preferences include listening Explained diagnosis and treatment plan Patient/Child/Caregiver expressed understanding of the content Mary Varma NOlivia /joby Electronically Signed By: MARY VARMA RN, MANAGEMENT TECH On: 01/24/2011 03:57 PM Source: [facility] MHSDOLBEYNONRADSYS Document Id: [id number] documented in this encounter Miscellaneous Notes Miscellaneous - Jessie Chapa L.P.NDann - 02/04/2011 9:33 AM CDT Adult Behavioral Pediatrician Intake/History Adult Behavioral Pediatrician Intake/History Entered On: 02/04/2011 9:35 CDT Performed On: 02/04/2011 9:33 CDT by JESSIE WEBB LPN Intake Chief Complaint: recheck diverticulitis Temperature Core: 36.2C(Converted to: 97.2DegF) (LOW) Peripheral Pulse Rate: 78/min Respiratory Rate: 16/min Systolic Blood Pressure: 112mmHg Diastolic Blood Pressure: 66mmHg NIBP Mean: 81mmHg BP Location: Left upper extremity Heart Rhythm: Regular Actual Weight: 76.100kg(Converted to: 167lb 12oz) Weight Source: Standing scale Dosing Weight Clinic: 76.10kg JESSIE WEBB LPN - 02/04/2011 9:33 CDT Subjective Pain Symptoms: No JESSIE WEBB LPN - 02/04/2011 9:33 CDT Dependent Habits Tobacco Use/Currently Using: No Alcohol Use: No JESSIE WEBB LPN - 02/04/2011 9:33 CDT Caffeine Use Grid Caffeine Use: Current Type: Coffee Frequency: Weekly JESSIE WEBB LPN - 02/04/2011 9:33 CDT Recreational Drug Use Grid Drug Use: None JESSIE WEBB LPN - 02/04/2011 9:33 CDT Allergy Allergies (Active) Glutens Estimated Onset Date: Unspecified ; Created By: PATTI ALMENDAREZ LPN; Reaction Status: Active; Category: Drug ; Substance: Glutens ; Type: Allergy ; Updated By: PATTI ALMENDAREZ LPN; Reviewed Date: 02/04/2011 9:32 CDT Nuts Estimated Onset Date: Unspecified ; Created By: PATTI ALMENDAREZ LPN; Reaction Status: Active ; Category: Food ; Substance: Nuts ; Type: Allergy ; Updated By: PATTI ALMENDAREZ LPN; Reviewed Date: 02/04/2011 9:32 CDT Source: [facility] POWERCHART Document Id: [id number] CDT!27 Miscellaneous - Mary Varma APRN, C.N.P. - 01/21/2011 10:42 AM CDT Ambulatory Patient Summary [facility] - [place] [address] [place] [address] Visit Information Name: KATHRYN LEON Current Date: 01/21/2011 10:42:18 Primary Care Provider: MARY VARMA RN, MANAGEMENT TECH Your Medications Here is a list of your medications. It is important to take your medications as directed. Use a pillbox or chart to help remind you to take your medications. Please let your doctor or nurse know if you have problems taking your medications. Medication/Strength Dose Route Frequency Indications/Special Instructions/Comments nystatin (nystatin 100,000 units/mL oral suspension) 5 mL Oral four times a day meclizine (meclizine 25 mg oral tablet) 25 mg Oral three times a day as needed for Dizziness metronidazole (metronidazole 500 mg oral tablet) 0.5 gm Oral every 6 hours ciprofloxacin (ciprofloxacin 750 mg oral tablet) 750 mg Oral two times a day for 10 Days fexofenadine-pseudoephedrine (Rochelle-D 12 Hour oral tablet, extended release) 1 tab(s) Oral two times a day fluticasone nasal (Flonase 0.05 mg/inh nasal spray) 2 spray(s) Nostrils(Both) once a day gabapentin (gabapentin 300 mg oral tablet) 3 tab at bedtime and 1 in am Oral two times a day cycloSPORINE ophthalmic (Restasis) one drop Eyes(Both) every 12 hours brimonidine ophthalmic (Alphagan P) one drop Eye(Right) three times a day bimatoprost ophthalmic (Lumigan) every evening ferrous gluconate (ferrous gluconate) Oral two times a day tramadol (tramadol) 100 mg Oral Pain aspirin (aspirin 81 mg oral tablet) 1 tab(s) Oral every other day acetaminophen (Tylenol 500 mg oral tablet) 2 Oral two times a day as needed for Pain omeprazole (omeprazole) 40 mg Oral once a day cyanocobalamin (Vitamin B-12) 1,000 mcg Oral once a day multivitamin (Multiple Vitamins oral tablet) 1 tab(s) Oral once a day calcium carbonate (calcium (as carbonate) 600 mg oral tablet) 2 tab(s) Oral two times a day dorzolamide-timolol ophthalmic (Cosopt ophthalmic solution) 1 drop(s) two times a day Your Allergies & Intolerances Substance Reaction Symptoms Category Comments Glutens Drug Nuts Food Your Problem List Problem Status Onset Comments Allergic rhinitis, unspecified Active 1953 date unk Arthritis, rheumatoid* Active 02/27/1980 Glaucoma Active 1987 date unknown Osteopenia Active 02/26/1987 Celiac Disease Active 02/26/2007 Cataract NOS Active 02/25/1992 date unknown Other and Unspecified Vaginal Hysterectomy Active 02/26/1967 Other Repair of Bladder Active 02/26/1995 Diverticulitis of large intestine Active 10/28/2010 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 Here is a customized list of recommendations, based on information we have in your medical record. Your doctor may have additional recommendations for you, based on your personal medical history and risk factors. You can help us by calling us to make an appointment when you are due for your tests. Additional information regarding recommendations: Test/Treatment Last Done Next Due Additional Information Screening Bone Density Once Women greater than age 64 08/14/2010 Completed Checks for bone loss and osteoporosis. Screening Colonoscopy or Flex Sig or Occult Blood X3 02/01/2009 01/30/2019 Checks for signs of cancer of the colon. Screening Mammogram every 1 year Women 40-75 06/28/2010 06/28/2011 X-rays of breast to check for breast cancer. Lipid Panel every 5 years Age 20-75 02/01/2009 01/31/2014 Checks blood for good (HDL) and bad (LDL) cholesterol. Know your numbers, they are one indicator of your risk for heart attack and stroke. Vaccine: Flu every 1 year 06/26/2010 06/26/2011 Immunization to help prevent you from getting the flu strain expected to be a problem for that year's flu season. Vaccine: Pneumococcal Once 02/01/2007 Completed Immunization to help prevent you from getting 23 kinds of pneumococcal bacteria that can lead to pneumonia, bacteremia and meningitis. Vaccine: Tetanus every 10 years 11/04/2010 11/01/2020 Immunization to help prevent you from getting the serious disease Tetanus (Lockjaw). Your Upcoming Appointments Date Time Location Reason Provider No Appointments found Your Goals/Additional instructions: Source: [facility] POWERCHART Document Id: [id number] Electronically signed by Dustin [facility] Stand Up Comedian [id number] at 02/15/2017 6:58 PM CDT Miscellaneous - Mary Varma APRN, C.N.P. - 01/21/2011 10:42 AM CDT Ambulatory Depart Summary [facility] - [address] [address] Visit Information Name: KATHRYN LEON Current Date: 01/21/2011 10:42:16 Primary Care Provider: MARY VARMA RN, MANAGEMENT TECH KATHRYN LEON has been given the following list of medications: Your Medications It is important to take your medications as directed. Use a pill box or chart to help remind you to take your medications. Please let your doctor or nurse know if you have problems taking your medications. Medication/Strength Dose Route Frequency Indications/Special Instructions/Comments nystatin (nystatin 100,000 units/mL oral suspension) 5 mL Oral four times a day meclizine (meclizine 25 mg oral tablet) 25 mg Oral three times a day as needed for Dizziness metronidazole (metronidazole 500 mg oral tablet) 0.5 gm Oral every 6 hours ciprofloxacin (ciprofloxacin 750 mg oral tablet) 750 mg Oral two times a day for 10 Days fexofenadine-pseudoephedrine (Rochelle-D 12 Hour oral tablet, extended release) 1 tab(s) Oral two times a day fluticasone nasal (Flonase 0.05 mg/inh nasal spray) 2 spray(s) Nostrils(Both) once a day gabapentin (gabapentin 300 mg oral tablet) 3 tab at bedtime and 1 in am Oral two times a day cycloSPORINE ophthalmic (Restasis) one drop Eyes(Both) every 12 hours brimonidine ophthalmic (Alphagan P) one drop Eye(Right) three times a day bimatoprost ophthalmic (Lumigan) every evening ferrous gluconate (ferrous gluconate) Oral two times a day tramadol (tramadol) 100 mg Oral Pain aspirin (aspirin 81 mg oral tablet) 1 tab(s) Oral every other day acetaminophen (Tylenol 500 mg oral tablet) 2 Oral two times a day as needed for Pain omeprazole (omeprazole) 40 mg Oral once a day cyanocobalamin (Vitamin B-12) 1,000 mcg Oral once a day multivitamin (Multiple Vitamins oral tablet) 1 tab(s) Oral once a day calcium carbonate (calcium (as carbonate) 600 mg oral tablet) 2 tab(s) Oral two times a day dorzolamide-timolol ophthalmic (Cosopt ophthalmic solution) 1 drop(s) two times a day Additional Information: Yes - Current list of reconciled medications is provided and explained to the patient and/or family, guardian/caregiver. Source: [facility] POWERCHART Document Id: [id number] Electronically signed by Dustin [facility] Stand Up Comedian [id number] at 02/15/2017 6:58 PM CDT Miscellaneous - Jessie Chapa L.P.N. - 01/21/2011 10:08 AM CDT Health Assessment Health Assessment Entered On: 01/21/2011 10:09 CDT Performed On: 01/21/2011 10:08 CDT by JESSIE WEBB LPN Nutrition Nutrition Risk Factors by History Adult: None JESSIE WEBB LPN - 01/21/2011 10:08 CDT Functional Current Daily Living Assistance: None JESSIE WEBB LPN - 01/21/2011 10:08 CDT Dependent Habits Tobacco Use/Currently Using: No JESSIE WBEB LPN - 01/21/2011 10:08 CDT Caffeine Use Grid Caffeine Use: Current Type: Coffee Frequency: Weekly JESSIE WEBB LPN - 01/21/2011 10:08 CDT Recreational Drug Use Grid Drug Use: None JESSIE WEBB LPN - 01/21/2011 10:08 CDT Psychosocial Domestic Concerns: None Marital Status: Years of Marriage: 54 Number of Children: 3 JESSIE WEBB LPN - 01/21/2011 10:08 CDT Advance Directive Advanced Directives: No JESSIE WEBB LPN - 01/21/2011 10:08 CDT Educ Needs Learning Style Preference Adult Grid Patient: None Family: None JESSIE WEBB LPN - 01/21/2011 10:08 CDT Source: [facility] CloudstaffCHART Document Id: [id number] CDT!26 Miscellaneous - Jessie Chapa LDannP.NDann - 01/21/2011 10:05 AM CDT Adult Behavioral Pediatrician Intake/History Adult Behavioral Pediatrician Intake/History Entered On: 01/21/2011 10:08 CDT Performed On: 01/21/2011 10:05 CDT by JESSIE WEBB LPN Intake Chief Complaint: f/u on ER visit diverticulitis and vertigo Temperature Core: 36.3C(Converted to: 97.3DegF) (LOW) Peripheral Pulse Rate: 84/min Respiratory Rate: 16/min Systolic Blood Pressure: 104mmHg Diastolic Blood Pressure: 58mmHg NIBP Mean: 73mmHg BP Location: Left upper extremity Heart Rhythm: Regular Actual Weight: 74.300kg(Converted to: 163lb 13oz) Weight Source: Standing scale Dosing Weight Clinic: 74.30kg JESSIE WEBB LPN - 01/21/2011 10:05 CDT Subjective Pain Symptoms: Yes JESSIE WEBB LPN - 01/21/2011 10:05 CDT Pain Pain Assessment Grid Pain 1 Location: Abdomen (Comment: stomach [JESSIE WEBB LPN - 01/21/2011 10:05 CDT] ) Intensity: 2 JESSIE WEBB LPN - 01/21/2011 10:05 CDT Dependent Habits Tobacco Use/Currently Using: No Alcohol Use: Yes JESSIE WEBB LPN - 01/21/2011 10:05 CDT Caffeine Use Grid Caffeine Use: Current Type: Coffee Frequency: Weekly JESSIE WEBB LPN - 01/21/2011 10:05 CDT Recreational Drug Use Grid Drug Use: None JESSIE WEBB LPN - 01/21/2011 10:05 CDT Allergy Allergies (Active) Glutens Estimated Onset Date: Unspecified ; Created By: PATTI ALMENDAREZ LPN; Reaction Status: Active; Category: Drug ; Substance: Glutens ; Type: Allergy ; Updated By: PATTI ALMENDAREZ LPN; Reviewed Date: 01/21/2011 10:02 CDT Nuts Estimated Onset Date: Unspecified ; Created By: PATTI ALMENDAREZ LPN; Reaction Status: Active ; Category: Food ; Substance: Nuts ; Type: Allergy ; Updated By: PATTI ALMENDAREZ LPN; Reviewed Date: 01/21/2011 10:02 CDT [facility] Document Id: [id number] CDT!32 documented in this encounter Plan of Treatment Not on filedocumented as of this encounter Visit Diagnoses Not on filedocumented in this encounter
--- OUTSIDE RECORDS SUMMARY | 2022-05-06 13:13 | XMS_ITS | Encounter Summary ---
:1935 Author Organization [facility] Address [address] [place] [id number] Care Team Providers Name Role Phone Unavailable Primary Care Provider Unavailable Encounter Details Date Type Department Care Team Description 11/04/2010 Hospital Encounter [facility]X [facility] Albania Varma APRN, C.N.P., D. N.P. [address] [place] [address] (Wo rk) Social History Tobacco [...] Progress Notes Albania Varma APRN, C.N.P. - 11/04/2010 12:00 AM CST [id number] CHIEF COMPLAINT/REASON FOR VISIT 1. Is recheck of diverticulitis. HISTORY OF PRESENT ILLNESS 1. Briana is a pleasant 75-year-old female who comes in today for a recheck of her diverticulitis. She was diagnosed and treated approximately two weeks ago, she states that she has completed her antibiotics. Her stools continue to be somewhat loose, but the pain in her abdomen is much improved. She is leaving for [place] and is somewhat concerned in regards to that. She has started Citrucel and is tolerating that without any difficulty. CURRENT MEDICATIONS Please see EMR for details. There is a prescription in there for Levaquin 500 daily and metronidazole 500 mg three times daily for both for one week only if patient needs. ALLERGIES Please see EMR. VITAL SIGNS Please see EMR PHYSICAL EXAMINATION IN GENERAL Patient appears nondistressed. Her SKIN is warm and dry. Her ABDOMEN is with hyperactive bowel sounds x4 quadrants. She continues to have some discomfort in her left lower quadrant to deep palpation but otherwise she has no peritoneal signs and no other abnormalities upon physical exam. IMPRESSION/REPORT/PLAN 1. Is diverticulitis. PLAN: 1. I did write her a prescription for one week use of Levaquin and metronidazole if her symptoms reoccur. She is to seek medical attention if that does occur. I also gave her my card as well as a phone number if she needed assistance. She agrees with that plan. She will continue with the Citrucel, watch for any new signs of infection and will plan to return in mid November from her vacation in [place]. She is to seek medical attention immediately if any of her symptoms progress or worsen. 2. Is immunization need she is overdue for tetanus. We did go ahead and update that today. Answered all questions. Did give her a patient summary for her travels to [place]. #1 Patient Education Ready to learn No apparent learning barriers were identified Learning preferences include listening Explained diagnosis and treatment plan Patient expressed understanding of the content Albania Varma N.P. /heather Electronically Signed By: ALBANIA VRAMA On: 11/04/2010 01:51 Source: [facility] [id number] Document Id: [id number] CTOR STRATEGIC PLANNING documented in this encounter Miscellaneous Notes Miscellaneous - Albania Varma APRN, C.N.P. - 11/04/2010 9:56 AM CST Ambulatory Patient Summary [facility] [address] [place] [address] [place] [address] Visit Information Name: BRIANA LEON Current Date: 11/04/2010 09:56:01 Primary Care Provider: ALBANIA VARMA Your Medications Here is a list of your medications. It is important to take your medications as directed. Use a pillbox or chart to help remind you to take your medications. Please let your doctor or nurse know if you have problems taking your medications. Medication/Strength Dose Route Frequency Indications/Special Instructions/Comments levofloxacin (Levaquin 500 mg oral tablet) 500 mg Oral once a day metronidazole (Flagyl 500 mg oral tablet) 0.5 gm Oral every 8 hours fluticasone nasal (Flonase 0.05 mg/inh nasal spray) [...] day as needed for Pain omeprazole (omeprazole) 20 mg Oral once a day cyanocobalamin (Vitamin B-12) 1,000 mcg Oral once a day furosemide (Lasix 20 mg oral tablet) 1 tab(s) Oral once a day as needed for fluid retention multivitamin (Multiple Vitamins oral tablet) 1 tab(s) Oral once a day calcium carbonate (calcium (as carbonate) 600 mg oral tablet) 2 tab(s) Oral two times a day fexofenadine-pseudoephedrine (Rochelle-D 12 Hour oral tablet, extended release) 1 tab(s) Oral two times a day dorzolamide-timolol ophthalmic (Cosopt ophthalmic solution) 1 drop(s) two times a day Your Allergies & Intolerances Substance Reaction Symptoms Category Comments Glutens Drug Nuts Food Your Problem List Problem Status Onset Comments Allergic rhinitis, unspecified Active Arthritis, rheumatoid* Active 02/27/1980 Glaucoma Active Osteopenia Active 02/26/1987 Celiac Disease Active 02/26/2007 Cataract NOS Active Other and Unspecified Vaginal Hysterectomy Active 02/26/1967 Other Repair of Bladder Active 02/26/1995 Diverticulitis of large intestine Active 10/28/2010 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 Screening Colonoscopy or Flex Sig or Barium Enema or Occult Blood X3 11/04/2010 Checks for signs of cancer of the colon. Screening Mammogram every 1 year Women 40-75 11/04/2010 X-rays of breast to check for breast cancer. Lipid Panel every 5 years Age 20-75 11/04/2010 Checks blood for good (HDL) and bad [...] can lead to pneumonia, bacteremia and meningitis. Your Upcoming Appointments Date Time Location Reason Provider No Appointments found Your Goals/Additional instructions: Source: [facility] POWERCHART Document Id: [id number] Miscellaneous - Albania Varma APRN, C.N.P. - 11/04/2010 9:56 AM CST Ambulatory Depart Summary [facility] - [address] [place] [address] Visit Information Name: BRIANA LEON Current Date: 11/04/2010 09:55:59 Primary Care Provider: ALBANIA VARMA BRIANA LENO has been given the following list of medications: Your Medications It is important to take your medications as directed. Use a pill box or chart to help remind you to take your medications. Please let your doctor or nurse know if you have problems taking your medications. Medication/Strength Dose Route Frequency Indications/Special Instructions/Comments levofloxacin (Levaquin 500 mg oral tablet) 500 mg Oral once a day metronidazole (Flagyl 500 mg oral tablet) 0.5 gm Oral every 8 hours fluticasone nasal (Flonase 0.05 mg/inh nasal spray) [...] day as needed for Pain omeprazole (omeprazole) 20 mg Oral once a day cyanocobalamin (Vitamin B-12) 1,000 mcg Oral once a day furosemide (Lasix 20 mg oral tablet) 1 tab(s) Oral once a day as needed for fluid retention multivitamin (Multiple Vitamins oral tablet) 1 tab(s) Oral once a day calcium carbonate (calcium (as carbonate) 600 mg oral tablet) 2 tab(s) Oral two times a day fexofenadine-pseudoephedrine (Rochelle-D 12 Hour oral tablet, extended release) 1 tab(s) Oral two times a day dorzolamide-timolol ophthalmic (Cosopt ophthalmic solution) 1 drop(s) two times a day Additional Information: Yes - Current list of reconciled medications is provided and explained to the patient and/or family, guardian/caregiver. 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 Intake/History Entered On: 11/04/2010 8:58 DIRECTOR STRATEGIC PLANNING Performed On: 11/04/2010 8:55 DIRECTOR STRATEGIC PLANNING by ERICA BRANDON LPN Intake Chief Complaint: check diverticulitis Temperature Core: 36.0C(Converted to: 96.8DegF) (LOW) Peripheral Pulse Rate: 88/min Respiratory Rate: 16/min Systolic Blood Pressure: 114mmHg Diastolic Blood Pressure: 64mmHg NIBP Mean: 81mmHg BP Location: Right upper extremity Heart Rhythm: Regular Height: 158.70cm(Converted to: 5ft 2in, 62.48in) Actual Weight: 75.700kg(Converted to: 166lb 14oz) Dosing Weight Clinic: 75.70kg Clinic BSA: 1.83 Body Mass Index: 30kg/m2 ERICA BRANDON LPN - 11/04/2010 8:55 DIRECTOR STRATEGIC PLANNING Subjective Pain Symptoms: No ERICA BRANDON LPN - 11/04/2010 8:55 DIRECTOR STRATEGIC PLANNING Dependent Habits Tobacco Use/Currently Using: No Tobacco Use/Last 12 months: No Alcohol Use: No ERICA BRANDON LPN - 11/04/2010 8:55 DIRECTOR STRATEGIC PLANNING Caffeine Use Grid Caffeine Use: Current Type: Coffee Frequency: Weekly ERICA BRANDON LPN - 11/04/2010 8:55 DIRECTOR STRATEGIC PLANNING Allergies Allergies (Active) Glutens Estimated Onset Date: Unspecified ; Created By: PATTI ALMENDAREZ LPN; Reaction Status: Active; Category: Drug ; Substance: Glutens ; Type: Allergy ; Updated By: PATTI ALMENDAREZ LPN; Reviewed Date: 10/28/2010 15:44 DIRECTOR STRATEGIC PLANNING Nuts Estimated Onset Date: Unspecified ; Created By: PATTI ALMENDAREZ LPN; Reaction Status: Active ; Category: Food ; Substance: Nuts ; Type: Allergy ; Updated By: PATTI ALMENDAREZ LPN; Reviewed Date: 10/28/2010 15:44 DIRECTOR STRATEGIC PLANNING Source: [facility] POWERCHART Document Id: [id number] DIRECTOR STRATEGIC PLANNING!27 CTOR STRATEGIC PLANNING documented in this encounter Plan of Treatment Not on filedocumented as of this encounter Visit Diagnoses Not on filedocumented in this encounter
--- OUTSIDE RECORDS SUMMARY | 2022-05-06 13:13 | XMS_ITS | Encounter Summary ---
:1935 Author Organization [facility] Address [address] [place] [address] Care Team Providers Name Role Phone Unavailable Primary Care Provider Unavailable Encounter Details Date Type Department Care Team Description 11/26/2011 Hospital Encounter HX [facility] [place] Varma, CYRIL, C.N.P., D. N.P. [address] [place] [address] (Wo rk) Social History Tobacco Use Types Packs/Day Years Used Date Smoking Tobacco: Never Assessed Sex Assigned at Date Recorded Not on file documented as of this encounter Last Filed Vital Signs Vital Sign Reading Time Taken Comments Blood Pressure 120/62 11/26/2011 12:46 PM CDT Pulse 72 11/26/2011 12:46 PM CDT Temperature - - Respiratory Rate 18 11/26/2011 12:46 PM CDT Oxygen Saturation - - Inhaled Oxygen Concentration - - Weight 74.7 kg (164 lb 10.9 oz) 11/26/2011 12:46 PM CDT Height - - Body Mass Index - [...] this encounter Progress Notes Albania Varma APRN, Angy.N.P. - 11/26/2011 12:00 AM CDT [id number] CHIEF COMPLAINT/REASON FOR VISIT Hip pain. HISTORY OF PRESENT ILLNESS Briana is a very pleasant 76-year-old female who comes in today with hip pain. She initially had right hip pain, but now that pain is much better. She has been using some ibuprofen, but now her left hip she states that it is hard to stand and it even wakes her at night. She first noted it on November 08. Ibuprofen seemed to help, but now it is just continuing and it actually radiates down her leg somewhat. The patient has had similar pain to this in the past. Resting usually assisted it and helped it. CURRENT MEDICATIONS Please see the EMR. ALLERGIES Glutens and nuts. VITAL SIGNS Please see the EMR. RADIOGRAPHS Left hip x-ray shows negative x-ray. Small amount of degenerative joint disease that I can tell, but very minimal. That was explained to and reviewed with the patient. PHYSICAL EXAMINATION In general, the patient appears nondistressed. Right hip with no tenderness noted. Left hip with flexion and extension were negative, and with abduction she had no particular pain. She had significant pain at the trochanter bursa area as well as posterior she had some discomfort also. Normal deep tendon reflexes. No significant pain in the back of her leg was noted. IMPRESSION/REPORT/PLAN Trochanter bursitis. I talked to the patient in regards to conservative treatment including using anti-inflammatories, icing, and resting. We could do physical therapy. At this point, the patient states that she did all that already and it seems to have failed. She would like to be more aggressive and would like to consider a bursa injection. I did discuss the risks and benefits with the patient, and she wishes to further proceed. PROCEDURE Following verification of the procedure of the left hip and site marking with a final pause to confirm the procedure site before proceeding with the injection as well as review of allergies and review of potential side-effects and complications including but not necessarily limited to infection, bleeding, allergic reaction, local tissue breakdown, elevation of blood sugars, and seizure the patient indicated that she understood and wished to proceed. Immediately prior to procedure pain the patient identified the herself using two verbal identifiers, verified the site, and the type of injection to be performed. Consent form was obtained. [place] precaution was used. The patient's left hip was prepped and draped in the usual sterile fashion. The painful area was marked. A combination of 8 cc of 0.5 bupivacaine and 80 mg of Depo-Medrol was injected using a 22-gauge needle in the left greater trochanter bursa. A sterile dressing was applied. The patient tolerated the procedure well. We will call patient in two to three days to see how she is doing and having any ill-effects. I did ask her to watch for signs and symptoms of infection and report if she has any concerns. Patient Education Ready to learn No apparent learning barriers were identified Learning preferences include listening Explained diagnosis and treatment plan Patient/Child/Caregiver expressed understanding of the content Albania Varma N.P. / Electronically Signed By: ALBANIA VARMA RN, CNP On: 12/01/2011 01:05 PM [facility] Document Id: [id number] documented in this encounter Miscellaneous Notes Miscellaneous - Albania Varma APRN, C.N.P. - 11/26/2011 2:03 PM CDT Ambulatory Patient Summary [address] [address] Visit Information Name: BRIANA LEON Current Date: 11/26/2011 14:03:53 Physicians Attending Provider: ALBANIA VARMA RN, GARDEN LABOURER Primary Care Provider: ALBANIA VARMA RN, GARDEN LABOURER Your Medications Here is a list of your medications. It is important to take your medications as directed. Use a pillbox or chart to help remind you to take your medications. Please let your doctor or nurse know if you have problems taking your medications. Medication/Strength Dose Route Frequency Indications/Special Instructions/Comments travoprost ophthalmic (travoprost 0.004% ophthalmic solution) 1 drop(s) Eye(Right) every evening ibuprofen (ibuprofen 400 mg oral tablet) 400 mg Oral three times a day Take with food. 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 Screening Colonoscopy or Flex Sig or Occult Blood 03/25/2011 03/22/2021 Checks for signs of cancer of the colon. Screening Mammogram every 1 year Women 40-75 07/15/2012 07/16/2013 X-rays of breast to check for breast cancer. Lipid Panel every 5 years Age 20-75 02/01/2009 01/31/2014 Checks blood for good (HDL) and bad (LDL) cholesterol. Know your numbers, they are one indicator of your risk for heart attack and stroke. Vaccine: Flu every 1 year 09/25/2011 09/24/2012 Immunization to help prevent you from getting [...] No Appointments found Your Goals/Additional instructions: Source: [facility] POWERCHART Document Id: [id number] Miscellaneous - Albania Varma APRN, C.N.P. - 11/26/2011 2:03 PM CDT Ambulatory Depart Summary [address] [address] Visit Information Name: BRIANA LEON Visit Date: 11/26/2011 14:03:53 Attending Provider: ALBANIA VARMA RN, GARDEN LABOURER Primary Care Provider: ALBANIA VARMA RN, GARDEN LABOURER BRIANA LEON has been given the following list of medications: Your Medications It is important to take your medications as directed. Use a pill box or chart to help remind you to take your medications. Please let your doctor or nurse know if you have problems taking your medications. Medication/Strength Dose Route Frequency Indications/Special Instructions/Comments travoprost ophthalmic (travoprost 0.004% ophthalmic solution) 1 drop(s) Eye(Right) every evening ibuprofen (ibuprofen 400 mg oral tablet) 400 mg Oral three times a day Take with food. Hip pain omeprazole (omeprazole 40 mg oral delayed release capsule) 40 mg Oral once a day gabapentin (gabapentin 300 mg oral capsule) 1 cap(s) in the morning and 3 cap(s) at bedtime Oral as directed ID [id number] fluticasone nasal (Flonase 0.05 mg/inh nasal spray) [...] solution) 1 drop(s) two times a day Attention: If you have any medications at home that are not on this list, DO NOT take them until youcontact your provider for clarification. Additional Information: Source: [facility] POWERCHART Document Id: [id number] Miscellaneous - Sujatha Batista L.P.N. 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 Intake/History Entered On: 11/26/2011 12:51 CDT Performed On: 11/26/2011 12:46 CDT by SUJATHA BATISTA LPN Intake Chief Complaint : bursitis couple months ago now thinks it is in the left hip how much excedrin to take Temperature Core : 36.7C(Converted to: 98.1DegF) Peripheral Pulse Rate : 72/min Respiratory Rate : 18/min Heart Rhythm : Regular Systolic Blood Pressure : 120mmHg Diastolic Blood Pressure : 62mmHg NIBP Mean : 81mmHg BP Location : Left upper extremity Blood Pressure Cuff Size : Regular Actual Weight : 74.7kg(Converted to: 164lb 11oz) Weight Source : Standing scale Dosing Weight Clinic : 74.70kg SUJATHA BATISTA LPN - 11/26/2011 12:46 CDT Subjective Pain Symptoms : Yes SUJATHA BATISTA LPN - 11/26/2011 12:46 CDT Pain Pain Assessment Grid Pain 1 Location : Hip Laterality : Left Intensity : 6 SUJATHA BATISTA LPN - 11/26/2011 12:46 CDT Dependent Habits Tobacco Use/Currently Using : No Exposure to Tobacco Smoke : Care provider denies smoking in home Smoking Status : Never smoker Alcohol Use : Yes SUJATHA BATISTA LPN - 11/26/2011 12:46 CDT Caffeine Use Grid Caffeine Use : Current Type : Coffee Frequency : Weekly SUJATHA BATISTA LPN - 11/26/2011 12:46 CDT Recreational Drug Use Grid Drug Use : None SUJATHA BATISTA LPN - 11/26/2011 12:46 CDT Allergy Allergies (Active) Glutens Estimated Onset Date: Unspecified ; Created By: PATTI ALMENDAREZ LPN; Reaction Status: Active; Category: Drug ; Substance: Glutens ; Type: Allergy ; Updated By: PATTI ALMENDAREZ LPN; Reviewed Date: 11/07/2011 9:44 BOX BENDER Nuts Estimated Onset Date: Unspecified ; Created By: PATTI ALMENDAREZ LPN; Reaction Status: Active ; Category: Food ; Substance: Nuts ; Type: Allergy ; Updated By: PATTI ALMENDAREZ LPN; Reviewed Date: 11/07/2011 9:44 BOX BENDER Source: [facility] POWERCHART Document Id: [id number] CDT!36 documented in this encounter Plan of Treatment Not on filedocumented as of this encounter Visit Diagnoses Not on filedocumented in this encounter
--- OUTSIDE RECORDS SUMMARY | 2022-05-06 13:13 | XMS_ITS | Encounter Summary ---
:1935 Author Organization [facility] Address [address] [place] [id number] Care Team Providers Name Role Phone Unavailable Primary Care Provider Unavailable Encounter Details Date Type Department Care Team Description 12/31/2010 Hospital Encounter HX [facility] Gerardo Wilson M.D. [address] [place] [phone] (Wo rk) Social History Tobacco Use [...] documented as of this encounter Progress Notes Kary Wilson M.D. - 12/31/2010 12:00 AM CDT [id number] IMPRESSION/REPORT/PLAN Acute sinusitis. Patient is given Z-Chang as directed on the pack and [id number] Sudafed. Steam inhalation and saltwater gargles are recommended. CHIEF COMPLAINT/REASON FOR VISIT Cough and postnasal drainage. HISTORY OF PRESENT ILLNESS This 75-year-old female presents to the clinic with complaint of cough and postnasal drainage. She is coughing up phlegm and has had a fever. She has also had pressure in her sinuses. Symptoms have been for a week to 10 days and getting worse. PAST MEDICAL HISTORY/SURGICAL HISTORY Patient has a history of allergic rhinitis and rheumatoid arthritis, glaucoma, celiac disease, cataract and vaginal hysterectomy. Patient also has surgical history of breast reduction, bladder repair, glaucoma and cataract surgery. PHYSICAL EXAMINATION HEENT: ears are congested with scattered light reflex. There is a significant amount of postnasal drainage. Patient has significant amount of tenderness on the maxillary sinuses and a large amount of postnasal drainage is noticed. NECK: neck no lymphadenopathy. No thyromegaly. No carotid bruits. LUNGS: chest with clear breath sounds bilaterally. HEART: CVS normal S1, S2, regular rate and rhythm. Kary Wilson M.D. / Electronically Signed By: KARY WILSON MD On: 01/02/2011 11:16 [facility] Document Id: [id number] documented in this encounter Miscellaneous Notes Miscellaneous - Patti Calderon, LDannPDannN. - 12/31/2010 3:01 PM CDT Health Assessment Health Assessment Entered On: 12/31/2010 15:02 CDT Performed On: 12/31/2010 15:01 CDT by PATTI CALDERON LPN Nutrition Nutrition Risk Factors by History Adult: None PATTI CALDERON LPN - 12/31/2010 15:01 CDT Functional Current Daily Living Assistance: None PATTI CALDERON LPN - 12/31/2010 15:01 CDT Dependent Habits Tobacco Use/Currently Using: No Tobacco Use/Last 12 months: No Tobacco Use/Advised to Quit: No Alcohol Use: Yes PATTI CALDERON LPN - 12/31/2010 15:01 CDT Caffeine Use Grid Caffeine Use: Current Type: Coffee Frequency: Weekly PATTI CALDERON LPN - 12/31/2010 15:01 CDT Recreational Drug Use Grid Drug Use: None PATTI CALDERON LPN - 12/31/2010 15:01 CDT Psychosocial Domestic Concerns: None PATTI CALDERON LPN - 12/31/2010 15:01 CDT Advance Directive Advanced Directives: No PATTI CALDERON LPN - 12/31/2010 15:01 CDT Educ Needs Learning Style Preference Adult Grid Patient: None Family: None PATTI CALDERON LPN - 12/31/2010 15:01 CDT Source: [facility] [employer] Document Id: [id number] CDT!26 Miscellaneous - Patti Calderon L.P.N. - 12/31/2010 2:58 PM CDT Adult Patient Biller Intake/History Adult Patient Biller Intake/History Entered On: 12/31/2010 15:01 CDT Performed On: 12/31/2010 14:58 CDT by PATTI CALDERON LPN Intake Chief Complaint: URI Onset of Symptoms: 1 week Temperature Core: 36.2C(Converted to: 97.2DegF) (LOW) Peripheral Pulse Rate: 76/min Respiratory Rate: 16/min Systolic Blood Pressure: 122mmHg Diastolic Blood Pressure: 76mmHg NIBP Mean: 91mmHg BP Location: Right upper extremity Heart Rhythm: Regular Actual Weight: 75.900kg(Converted to: 167lb 5oz) Weight Source: Standing scale Dosing Weight Clinic: 75.90kg PATTI CALDERON LPN - 12/31/2010 14:58 CDT Subjective Pain Symptoms: No PATTI CALDERON LPN - 12/31/2010 14:58 CDT Dependent Habits Tobacco Use/Currently Using: No Tobacco Use/Last 12 months: No Tobacco Use/Advised to Quit: No Alcohol Use: Yes PATTI CALDERON LPN - 12/31/2010 14:58 CDT Caffeine Use Grid Caffeine Use: Current Type: Coffee Frequency: Weekly PATTI CALDERON LPN - 12/31/2010 14:58 CDT Recreational Drug Use Grid Drug Use: None PATTI CALDERON LPN - 12/31/2010 14:58 CDT Allergies Allergies (Active) Glutens Estimated Onset Date: Unspecified ; Created By: PATTI CALDERON LPN; Reaction Status: Active; Category: Drug ; Substance: Glutens ; Type: Allergy ; Updated By: PATTI CALDERON LPN; Reviewed Date: 12/31/2010 14:55 CDT Nuts Estimated Onset Date: Unspecified ; Created By: PATTI CALDERON LPN; Reaction Status: Active ; Category: Food ; Substance: Nuts ; Type: Allergy ; Updated By: PATTI CALDERON LPN; Reviewed Date: 12/31/2010 14:55 CDT Source: [employer] Document Id: [id number] CDT!30 Miscellaneous - Patti Calderon L.P.N. - 02/01/2009 2:40 PM CDT Quality Measures Quality Measures Entered On: 12/31/2010 14:41 CDT Performed On: 02/01/2009 14:40 CDT by PATTI CALDERON LPN Labs Outside Lab LDL: 106mg/dL PATTI CALDERON LPN - 12/31/2010 14:40 CDT Source: [employer] Document Id: [id number] CDT!3 documented in this encounter Plan of Treatment Not on filedocumented as of this encounter Visit Diagnoses Not on filedocumented in this encounter
--- OUTSIDE RECORDS SUMMARY | 2022-05-06 13:13 | XMS_ITS | Encounter Summary ---
:1935 Author Organization [facility] Address [address] [place] [address] Care Team Providers Name Role Phone Unavailable Primary Care Provider Unavailable Encounter Details Date Type Department Care Team Description 10/15/2011 Hospital Encounter HX [facility] ME Sylvester Zamorano III, M.D. [address] [place] [phone] (Wo rk) Social History Tobacco Use Types Packs/Day Years Used Date Smoking Tobacco: Never Assessed Sex Assigned at Date Recorded Not on file documented as of this encounter Last Filed Vital Signs Vital Sign Reading Time Taken Comments Blood Pressure 120/64 10/15/2011 12:57 PM [facility]NAGER [employer]NAG[employer] Pulse 80 10/15/2011 12:57 PM [employer] [employer] Temperature - - Respiratory Rate 16 10/15/2011 12:57 PM [employer] [employer]NAG[employer] Oxygen Saturation - - Inhaled Oxygen Concentration - - Weight 75.6 kg (166 lb 10.7 oz) 10/15/2011 12:57 PM [employer] [employer]NAG[facility] Height - - Body Mass Index - [...] documented as of this encounter Progress Notes Earle Zamorano M.D. - 10/15/2011 12:00 AM CST [id number] CHIEF COMPLAINT/REASON FOR VISIT Right hip pain. HISTORY OF PRESENT ILLNESS This is a 76-year-old white female who has had a past history of low back pain that resulted in acute neuropathy and back surgery in 2009. She states that since 09/19 2011 she has had a recurrence of pain in several areas of her right hip. These include the general area of the sciatic nerve at its exit from the gluteal muscles, lateral right hip with palpation, and groin. With regard to the buttocks pain, this does radiate into the lower part of the gluteus jonathan but does not radiate down the posterior or lateral portion of the leg. She has had something like this before but it has cleared up on its own. She thinks it might be related to her flu shot. With regard to the pain on the lateral portion in the area of the greater trochanter, she states she is unable to sleep on that side as it reproduces her pain. This pain is also increased by walking. With regard to her groin pain, she states this is only felt while walking. If she is sitting still it does not reproduce it. She has not had that before. SYSTEM REVIEW Review of systems with pertinent positives and negatives as noted above. The remainder of complete review of systems is negative. PAST MEDICAL/ SURGICAL HISTORY Diverticulitis of the large intestine, celiac disease, cataracts, osteopenia, glaucoma, rheumatoid arthritis, allergic rhinitis, and lumbago. VITAL SIGNS Temperature 36.5, pulse 80, respirations 16, blood pressure 120/64, weight 75.6 kg. PHYSICAL EXAMINATION GENERAL: The patient is alert and cooperative. She is in no acute distress at this time. GAIT: Evaluation of her gait shows a limp with each step on the right. She is able to walk on her heels and toes but this does aggravate her pain. JOINTS: In the seated position, straight leg raise does not reproduce her pain. Palpation of the lateral hip at the greater trochanter does significantly cause of pain as does palpation of the area of the sciatic nerve. Internal rotation of the hip does not reproduce the patient's pain. IMPRESSION/REPORT/PLAN 1. Trochanteric bursitis. 2. 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 PLAN: Patient has currently been taking Tylenol Extra Strength 650 mg four times daily. This does not appear to be helping this particular pain. I feel this is probably an inflammatory process and have recommended an NSAID 400-600 mg three times daily. Will try this for approximately one week. Encouraged her to stay as active as possible in this time of pain. I would recommend we see her back in approximately one week. At that time, our consideration for treatment would include an injection into the trochanteric bursa or possibly opioid pain medications. She is currently on pain adjuvant medications which are appropriate for her condition. She may need a multimodal approach to pain management in the future. She is happy with the plan at this point. We will see her back in about a week for followup. Ealre Zamorano III, M.D. / Electronically Signed By: EARLE ZAMORANO III, MD On: 10/22/2011 08:13 AM Source: [facility] Document Id: [id number] GER CARE MANAGEMENT documented in this encounter Miscellaneous Notes Miscellaneous - Earle Zamorano M.D. - 10/15/2011 1:24 PM CST Ambulatory Patient Summary [address] [id number] Visit Information Name: BRIANA LEON Current Date: 10/15/2011 13:24:52 Primary Care Provider: ALBANIA VARMA RN, SENIOR AGRICULTURAL ASSISTANT Your Medications Here is a list of your medications. It is important to take your medications as directed. Use a pillbox or chart to help remind you to take your medications. Please let your doctor or nurse know if you have problems taking your medications. Medication/Strength Dose Route Frequency Indications/Special Instructions/Comments ibuprofen (ibuprofen 400 mg oral tablet) 400 mg Oral three times a day Take with food. Hip pain omeprazole (omeprazole 40 mg oral delayed release capsule) 40 mg Oral once a day gabapentin (gabapentin 300 mg oral capsule) 1 cap(s) in the morning and 3 cap(s) at bedtime Oral as directed ID [id number] fluticasone nasal (Flonase 0.05 mg/inh nasal spray) [...] Upcoming Appointments Date Time Location Reason Provider 10/20/2011 09:15 [facility] Family Med leg pain [place] Lu Your Goals/Additional instructions: Source: [facility] Document Id: [id number] GER CARE MANAGEMENT Miscellaneous - Earle Zamorano M.D. - 10/15/2011 1:24 PM CST Ambulatory Depart Summary [address] [id number] Visit Information Name: BRIANA LEON Current Date: 10/15/2011 13:24:50 Attending Provider: EARLE ZAMORANO III, MD Primary Care Provider: ALBANIA VARMA RN, SENIOR AGRICULTURAL ASSISTANT BRIANA LEONERINE has been given the following list of medications: Your Medications It is important to take your medications as directed. Use a pill box or chart to help remind you to take your medications. Please let your doctor or nurse know if you have problems taking your medications. Medication/Strength Dose Route Frequency Indications/Special Instructions/Comments ibuprofen (ibuprofen 400 mg oral tablet) 400 mg Oral three times a day Take with food. Hip pain omeprazole (omeprazole 40 mg oral delayed release capsule) 40 mg Oral once a day gabapentin (gabapentin 300 mg oral capsule) 1 cap(s) in the morning and 3 cap(s) at bedtime Oral as directed ID [id number] fluticasone nasal (Flonase 0.05 mg/inh nasal spray) [...] to the patient and/or family, guardian/caregiver. Source: [facility] POWER[facility] Document Id: [id number] GER CARE MANAGEMENT Miscellaneous - Ana Hoang L.PChelsey - 10/15/2011 1:03 PM CST Health Assessment Health Assessment Entered On: 10/15/2011 13:04 [facility]NAGER [facility]NAGEMENT Performed On: 10/15/2011 13:03 MANAGER CARE MANAGEMENT by ANA HOANG LPN Health Assessment Complete Health Assessment Complete or Modified : Annual Health Assessment Annual Health Assessment Completed : Yes ANA HOANG LPN - 10/15/2011 13:03 MANAGER CARE MANAGEMENT Nutrition Nutrition Risk Factors by History Adult : None ANA HOANG LPN - 10/15/2011 13:03 MANAGER CARE MANAGEMENT Functional Current Daily Living Assistance : None ANA HOANG LPN - 10/15/2011 13:03 MANAGER CARE MANAGEMENT Dependent Habits Tobacco Use/Currently Using : No Exposure to Tobacco Smoke : Care provider denies smoking in home Smoking Status : Never smoker ANA HOANG LPN - 10/15/2011 13:03 MANAGER CARE MANAGEMENT Caffeine Use Grid Caffeine Use : Current Type : Coffee Frequency : Weekly ANA HOANG LPN - 10/15/2011 13:03 MANAGER CARE MANAGEMENT Recreational Drug Use Grid Drug Use : None ANA HOANG LPN - 10/15/2011 13:03 MANAGER CARE MANAGEMENT Psychosocial Domestic Abuse Concerns : None ANA HOANG LPN - 10/15/2011 13:03 MANAGER CARE MANAGEMENT Advance Directive Advanced Directives : No Advance Directive Additional Information : Yes ANA HOANG LPN - 10/15/2011 13:03 MANAGER CARE MANAGEMENT Educ Needs Learning Style Preference Adult Grid Patient : Printed materials, Verbal explanation Family : None ANA HOANG LPN - 10/15/2011 13:03 MANAGER CARE MANAGEMENT Source: [facility] [employer] Document Id: [id number] MANAGER CARE MANAGEMENT!29 GER CARE MANAGEMENT Miscellaneous - Ana Hoang L.P.NDann - 10/15/2011 12:57 PM CST Adult Detailer Furniture Intake/History Adult Det[employer]er Furniture Intake/History Entered On: 10/15/2011 13:03 MANAGER CARE MANAGEMENT Performed On: 10/15/2011 12:57 MANAGER CARE MANAGEMENT by ANA HOANG LPN Intake Chief Complaint : right sore hip. Sx started day after flu shot given 09/19 or . States this has happened before. Temperature Core : 36.5C(Converted to: 97.7DegF) Peripheral Pulse Rate : 80/min Respiratory Rate : 16/min Heart Rhythm : Regular Systolic Blood Pressure : 120mmHg Diastolic Blood Pressure : 64mmHg NIBP Mean : 83mmHg BP Location : Right upper extremity Blood Pressure Cuff Size : Regular Actual Weight : 75.6kg(Converted to: 166lb 11oz) Weight Source : Standing scale Dosing Weight Clinic : 75.60kg NAA HOANG LPN - 10/15/2011 12:57 MANAGER CARE MANAGEMENT Subjective Pain Symptoms : Yes ANA HOANG LPN - 10/15/2011 12:57 MANAGER CARE MANAGEMENT Pain Pain Assessment Grid Pain 1 Location : Hip Laterality : Right Intensity : 6 ANA HOANG LPN - 10/15/2011 12:57 MANAGER CARE MANAGEMENT Dependent Habits Tobacco Use/Currently Using : No Exposure to Tobacco Smoke : Care provider denies smoking in home Smoking Status : Never smoker ANA HOANG LPN - 10/15/2011 12:57 MANAGER CARE MANAGEMENT Caffeine Use Grid Caffeine Use : Current Type : Coffee Frequency : Weekly ANA HOANG LPN - 10/15/2011 12:57 MANAGER CARE MANAGEMENT Recreational Drug Use Grid Drug Use : None ANA HOANG LPN - 10/15/2011 12:57 MANAGER CARE MANAGEMENT Allergy Allergies (Active) Glutens Estimated Onset Date: Unspecified ; Created By: PATTI ALMENDAREZ LPN; Reaction Status: Active; Category: Drug ; Substance: Glutens ; Type: Allergy ; Updated By: PATTI ALMENDAREZ LPN; Reviewed Date: 10/15/2011 12:54 MANAGER CARE MANAGEMENT Nuts Estimated Onset Date: Unspecified ; Created By: PATTI ALMENDAREZ LPN; Reaction Status: Active ; Category: Food ; Substance: Nuts ; Type: Allergy ; Updated By: PATTI ALMENDAREZ LPN; Reviewed Date: 10/15/2011 12:54 MANAGER CARE MANAGEMENT Source: [facility] Document Id: [id number] MANAGER CARE MANAGEMENT!35 GER CARE MANAGEMENT documented in this encounter Plan of Treatment Not on filedocumented as of this encounter Visit Diagnoses Not on filedocumented in this encounter
--- OUTSIDE RECORDS SUMMARY | 2022-05-06 13:13 | XMS_ITS | Encounter Summary ---
:1935 Author Organization [facility] Address [address] [place] [address] Care Team Providers Name Role Phone Unavailable Primary Care Provider Unavailable Encounter Details Date Type Department Care Team Description 04/07/2011 Hospital Encounter [facility]X [facility] ME Mary Varma APRN, C.N.P., D. N.P. [address] [place] [address] (Wo rk) Social History Tobacco [...] Progress Notes Mary Varma APRN, C.N.P. - 04/07/2011 12:00 AM CDT [id number] CHIEF COMPLAINT/REASON FOR VISIT 1. Suture removal. 2. Diverticulum. HISTORY OF PRESENT ILLNESS 1. Kathryn is a 76-year-old female who comes in today after having a colonoscopy and is here today for review of her colonoscopy but a recheck of her diverticulosis. She has had episodes that have actually hospitalized her x2 for the diverticulitis and it has been greater than six weeks since her last exacerbation. She otherwise states that she is feeling much better and has no other particular concerns. 2. Suture removal. Two weeks ago, the patient was on her deck and she was sliced by a metal chicken lawn ornament. She was taken to the ER, sutured, and is here today for suture removal. She has no particular signs of infection and no other particular concerns. CURRENT MEDICATIONS Please see EMR. ALLERGIES Glutens and nuts. SYSTEMS REVIEW She denies any fevers or chills. VITAL SIGNS Her vital signs were reviewed and normal. PHYSICAL EXAMINATION No additional physical examination performed. IMPRESSION/REPORT/PLAN 1. Diverticulosis. Appears stable. I did review her colonoscopy results. She will be due for a colonoscopy again in 10 years. 2. Suture removal. Eight interrupted sutures were removed without difficulty and Steri-Strips were applied. She will report if no improvement or any worsening symptoms. Mary Varma N.P. /joby Electronically Signed By: MARY VARMA RN, HEEL ATTACHER WOOD On: 04/09/2011 09:31 AM [facility] Document Id: [id number] Mary Varma APRN, C.N.P. - 10/28/2010 12:00 AM CST [id number] CHIEF COMPLAINT/REASON FOR VISIT Followup of diverticulitis. HISTORY OF PRESENT ILLNESS Kathryn is a very pleasant 75-year-old female who was seen last on 10/24/2010 for significant abdominal pain. She had significant weakness that came on suddenly at a restaurant the night prior which did land her in the ER. She returned for a visit after the ER visit on the and I did do a CT scan indicating diverticulitis. She was started on antibiotics of clindamycin as Flagyl was not available and Cipro. Patient is tolerating her medications well and also is here today for followup. She states that she is feeling much better than she did. The pain still is noted but is much improved from previous. She does have a little bit loose stools for her antibiotics but denies any excessive diarrhea. CURRENT MEDICATIONS Medications reviewed. PHYSICAL EXAMINATION GENERAL: Patient appears nondistressed. SKIN: Her skin is warm and dry. ABDOMEN: She has positive bowel sounds x4 quadrants. She continues to have some tenderness to her left lower quadrant to deep palpation but is much improved from her previous examination. IMPRESSION/REPORT/PLAN 1. Diverticulitis. PLAN: did housing counselor patient in length in regards to the importance of fluid intake as well as high-fiber diet. We discussed this in length and different modifications she can do to her diet. At this point, she has been having a mild diet. Will go ahead and advance that as she tolerates. Will have her avoid seedy things such as popcorn for at least the next month or several months. Will start her on some Citrucel every evening and will plan follow up for next week per patient's request. Patient Education #1 Patient ready to learn. No apparent learning barriers were identified. Learning preferences included listening. Explained diagnosis and treatment plan. Patient expressed understanding of the content. Mary Varma N.P. /deandre Electronically Signed By: MARY VARMA On: 10/30/2010 03:49 Source: [facility] Document Id: [id number] RATING KILN OPERATOR documented in this encounter Miscellaneous Notes Miscellaneous - Mary Varma APRN, C.N.P. - 04/07/2011 10:09 AM CDT Ambulatory Patient Summary [id number] [place] [address] Visit Information Name: KATHRYN LEON Current Date: 04/07/2011 10:09:44 Primary Care Provider: MARY VARMA RN, HEEL ATTACHER WOOD Your Medications Here is a list of your medications. It is important to take your medications as directed. Use a pillbox or chart to help remind you to take your medications. Please let your doctor or nurse know if you have problems taking your medications. Medication/Strength Dose Route Frequency Indications/Special Instructions/Comments omeprazole (omeprazole) 40 mg Oral once a day fexofenadine-pseudoephedrine (Rochelle-D 12 Hour oral tablet, extended release) 1 tab(s) Oral two times a day bisacodyl (bisacodyl 5 mg oral enteric coated tablet) 20 mg Oral once per instructions for colonoscopy prep hydrochlorothiazide (hydrochlorothiazide 12.5 mg oral capsule) 12.5 mg Oral once a day fluticasone nasal (Flonase 0.05 mg/inh [...] or Flex Sig or Occult Blood X3 03/25/2011 03/22/2021 Checks for signs of cancer [...] No Appointments found Your Goals/Additional instructions: Source: [facility] POWER[facility] Document Id: [id number] Miscellaneous - Mary Varma, CYRIL, C.N.P. - 04/07/2011 10:09 AM CDT Ambulatory Depart Summary [address] [address] Visit Information Name: CAROLYNKATHRYN COLONARCHANA Current Date: 04/07/2011 10:09:42 Primary Care Provider: MARY VARMA RN, HEEL ATTACHER WOOD CAROLYN KATHRYN BANDA has been given the following list of medications: Your Medications It is important to take your medications as directed. Use a pill box or chart to help remind you to take your medications. Please let your doctor or nurse know if you have problems taking your medications. Medication/Strength Dose Route Frequency Indications/Special Instructions/Comments omeprazole (omeprazole) 40 mg Oral once a day fexofenadine-pseudoephedrine (Rochelle-D 12 Hour oral tablet, extended release) 1 tab(s) Oral two times a day bisacodyl (bisacodyl 5 mg oral enteric coated tablet) 20 mg Oral once per instructions for colonoscopy prep hydrochlorothiazide (hydrochlorothiazide 12.5 mg oral capsule) 12.5 mg Oral once a day fluticasone nasal (Flonase 0.05 mg/inh [...] to the patient and/or family, guardian/caregiver. Source: [facility] POWER[facility]ART Document Id: [id number] Electronically signed by Conversion, [facility] Master Sheet Clerk [id number] at 02/15/2017 3:18 PM CDT Miscellaneous - Jessie Chapa L.P.N. - 04/07/2011 9:27 AM CDT Adult Safety Leader Intake/History Adult Safety Leader Intake/History Entered On: 04/07/2011 9:32 CDT Performed On: 04/07/2011 9:27 CDT by JESSIE WEBB LPN Intake Chief Complaint: suture removal, f/u on colonoscopy. medication refill, and rochelle Temperature Core: 36.2C(Converted to: 97.2DegF) (LOW) Peripheral Pulse Rate: 72/min Respiratory Rate: 16/min Systolic Blood Pressure: 118mmHg Diastolic Blood Pressure: 68mmHg NIBP Mean: 85mmHg BP Location: Right upper extremity Heart Rhythm: Regular Actual Weight: 75.700kg(Converted to: 166lb 14oz) Weight Source: Standing scale Dosing Weight Clinic: 75.70kg JESSIE WEBB LPN - 04/07/2011 9:27 CDT Subjective Pain Symptoms: No JESSIE WEBB LPN - 04/07/2011 9:27 CDT Dependent Habits Tobacco Use/Currently Using: No Alcohol Use: No JESSIE WEBB LPN - 04/07/2011 9:27 CDT Caffeine Use Grid Caffeine Use: Current Type: Coffee Frequency: Weekly JESSIE WEBB LPN - 04/07/2011 9:27 CDT Recreational Drug Use Grid Drug Use: None JESSIE WEBB LPN - 04/07/2011 9:27 CDT Allergy Allergies (Active) Glutens Estimated Onset Date: Unspecified ; Created By: PATTI ALMENDAREZ LPN; Reaction Status: Active; Category: Drug ; Substance: Glutens ; Type: Allergy ; Updated By: PATTI ALMENDAREZ LPN; Reviewed Date: 04/07/2011 9:26 CDT Nuts Estimated Onset Date: Unspecified ; Created By: PATTI ALMENDAREZ LPN; Reaction Status: Active ; Category: Food ; Substance: Nuts ; Type: Allergy ; Updated By: PATTI ALMENDAREZ LPN; Reviewed Date: 04/07/2011 9:26 CDT Source: [facility] POWER[facility] Document Id: [id number] CDT!27 Miscellaneous - Jessie Chapa L.P.N. - 10/28/2010 3:54 PM CST Adult Safety Leader Intake/History Adult Safety Leader Intake/History Entered On: 10/28/2010 15:58 DECORATING KILN OPERATOR Performed On: 10/28/2010 15:54 DECORATING KILN OPERATOR by JESSIE WEBB LPN Intake Chief Complaint: f/u on last weeks appointment, feeling light headed today, possibly from rochelle Onset of Symptoms: light headed started today Temperature Core: 36.3C(Converted to: 97.3DegF) (LOW) Peripheral Pulse Rate: 68/min Respiratory Rate: 16/min Systolic Blood Pressure: 124mmHg Diastolic Blood Pressure: 66mmHg NIBP Mean: 85mmHg BP Location: Right upper extremity Heart Rhythm: Regular Actual Weight: 75.500kg(Converted to: 166lb 7oz) Dosing Weight Clinic: 75.50kg JESSIE WEBB LPN - 10/28/2010 15:54 DECORATING KILN OPERATOR Subjective Pain Symptoms: No JESSIE WEBB LPN - 10/28/2010 15:54 DECORATING KILN OPERATOR Dependent Habits Tobacco Use/Currently Using: No Alcohol Use: Yes JESSIE WEBB LPN - 10/28/2010 15:54 DECORATING KILN OPERATOR Caffeine Use Grid Caffeine Use: Current Type: Coffee Frequency: Weekly JESSIE WEBB LPN - 10/28/2010 15:54 DECORATING KILN OPERATOR Allergies Allergies (Active) Glutens Estimated Onset Date: Unspecified ; Created By: PATTI ALMENDAREZ LPN; Reaction Status: Active; Category: Drug ; Substance: Glutens ; Type: Allergy ; Updated By: PATTI ALMENDAREZ LPN; Reviewed Date: 10/28/2010 15:44 DECORATING KILN OPERATOR Nuts Estimated Onset Date: Unspecified ; Created By: PATTI ALMENDAREZ LPN; Reaction Status: Active ; Category: Food ; Substance: Nuts ; Type: Allergy ; Updated By: PATTI ALMENDAREZ LPN; Reviewed Date: 10/28/2010 15:44 DECORATING KILN OPERATOR Source: [facility] POWER[facility] Document Id: [id number] DECORATING KILN OPERATOR!24 RATING KILN OPERATOR documented in this encounter Plan of Treatment Not on filedocumented as of this encounter Visit Diagnoses Not on filedocumented in this encounter
--- OUTSIDE RECORDS SUMMARY | 2022-05-06 13:13 | XMS_ITS | Encounter Summary ---
:1935 Author Organization [facility] Address [address] [place] [address] Care Team Providers Name Role Phone Unavailable Primary Care Provider Unavailable Encounter Details Date Type Department Care Team Description 08/04/2011 Hospital Encounter [facility] ME [place] Varma APRN, C.N.P., D. N.P. [address] [place] [address] (Wo rk) Social History Tobacco [...] Progress Notes [place] Varma APRN, C.N.P. - 08/04/2011 12:00 AM CST [id number] CHIEF COMPLAINT/REASON FOR VISIT 1. Rash. HISTORY OF PRESENT ILLNESS 1. Briana is a pleasant 76-year-old female who comes in today for recheck of a rash. She has it in her groin as well as her abdominal fold. She was just seen on 07/29/2011 and was placed on nystatin cream. She actually thinks that that might be making it worse and that she might be allergic to that. She actually thinks that the groin folds and actually her buttock area is significantly worse. She has been afebrile, however. CURRENT MEDICATIONS Please see the EMR for those details. ALLERGIES Please see EMR for those details. Glutens and nuts. VITAL SIGNS Please see EMR. PHYSICAL EXAM SKIN: On her groin folds bilaterally, she does have some fissure noted and some erythema around it. Actually her abdominal fold rash from previous is much improved. She also has a fissure in her buttocks fold that does look like it may have a secondary infection. I did pull Dr. Stephanie Jeffries in to also evaluate and to assist in making a plan. IMPRESSION/REPORT/PLAN 1. Candidus of this skin. I do believe there is probably a secondary infection also noted. We will go ahead and place on Keflex 500 mg by mouth three times daily for the next seven days, but I am also going to place her on some Diflucan 100 mg tablets. She is to take two today and one tablet for the next five days. She can use some Bactroban topical cream on it and she will let me know if she has no resolution or any worsening of these symptoms. PATIENT EDUCATION: Ready to learn No apparent learning barriers were identified Learning preferences include listening Explained diagnosis and treatment plan Patient/Child/Caregiver expressed understanding of the content [place] Varma N.P. /joby Electronically Signed By: ALBANIA VARMA RN, LIP READING TEACHER On: 08/14/2011 04:05 PM Source: [facility] MHSDOLBEYNONRADSYS Document Id: [id number] OELECTRIC COMPONENT MACHINIST documented in this encounter Miscellaneous Notes Miscellaneous - [place] Varma APRN, C.N.P. - 08/04/2011 10:50 AM CST Ambulatory Patient Summary [id number] [place] [address] Visit Information Name: BRIANA LEON Current Date: 08/04/2011 10:49:54 Primary Care Provider: ALBANIA VARMA RN, [facility] Your Medications Here is a list of your medications. It is important to take your medications as directed. Use a pillbox or chart to help remind you to take your medications. Please let your doctor or nurse know if you have problems taking your medications. Medication/Strength Dose Route Frequency Indications/Special Instructions/Comments mupirocin topical (Bactroban 2% topical cream) 1 tj Topical three times a day for 7 Days fluconazole (Diflucan 100 mg oral tablet) 100 mg Oral once a day for 7 Days cephalexin (Keflex 500 mg oral capsule) 500 mg Oral three times a day for 7 Days omeprazole (omeprazole) 40 mg Oral once a day fexofenadine-pseudoephedrine (Rochelle-D 12 Hour oral tablet, extended release) 1 tab(s) Oral two times a day fluticasone nasal (Flonase 0.05 mg/inh nasal spray) 2 spray(s) Nostrils(Both) once a day gabapentin (gabapentin 300 mg oral tablet) 2 tab at bedtime and 1 in am [...] Mammogram every 1 year Women 40-75 06/28/2010 06/29/2011 X-rays of breast to check for breast [...] No Appointments found Your Goals/Additional instructions: Source: [facility] POWERCHART Document Id: [id number] OELECTRIC COMPONENT MACHINIST Miscellaneous - [place] Varma APRN, C.N.P. - 08/04/2011 10:49 AM CST Ambulatory Depart Summary [facility] [address] [place] [address] Visit Information Name: BRIANA LEON Current Date: 08/04/2011 10:49:52 Primary Care Provider: ALBANIA VARMA RN, LIP READING TEACHER BRIANA LEON has been given the following list of medications: Your Medications It is important to take your medications as directed. Use a pill box or chart to help remind you to take your medications. Please let your doctor or nurse know if you have problems taking your medications. Medication/Strength Dose Route Frequency Indications/Special Instructions/Comments mupirocin topical (Bactroban 2% topical cream) 1 tj Topical three times a day for 7 Days fluconazole (Diflucan 100 mg oral tablet) 100 mg Oral once a day for 7 Days cephalexin (Keflex 500 mg oral capsule) 500 mg Oral three times a day for 7 Days omeprazole (omeprazole) 40 mg Oral once a day fexofenadine-pseudoephedrine (Rochelle-D 12 Hour oral tablet, extended release) 1 tab(s) Oral two times a day fluticasone nasal (Flonase 0.05 mg/inh nasal spray) 2 spray(s) Nostrils(Both) once a day gabapentin (gabapentin 300 mg oral tablet) 2 tab at bedtime and 1 in am [...] to the patient and/or family, guardian/caregiver. Source: [facility] POWERCHART Document Id: [id number] OELECTRIC COMPONENT MACHINIST Miscellaneous - Conversion, Historical Provider Ser - 08/04/2011 10:06 AM HYDROELECTRIC COMPONENT MACHINIST Adult Beauty Culturist Apprentice Intake/History Adult Beauty Culturist Apprentice Intake/History Entered On: 08/04/2011 10:09 HYDROELECTRIC COMPONENT MACHINIST Performed On: 08/04/2011 10:06 HYDROELECTRIC COMPONENT MACHINIST by NIMISHA RIOJAS V Intake Chief Complaint : f/u yeast infection Temperature Core : 36.1C(Converted to: 97.0DegF) (LOW) Peripheral Pulse Rate : 78/min Respiratory Rate : 16/min Systolic Blood Pressure : 128mmHg Diastolic Blood Pressure : 62mmHg NIBP Mean : 84mmHg BP Location : Right upper extremity Heart Rhythm : Regular NIMISHA RIOJAS V - 08/04/2011 10:06 HYDROELECTRIC COMPONENT MACHINIST Subjective Pain Symptoms : Yes NIMISHA RIOJAS V - 08/04/2011 10:06 HYDROELECTRIC COMPONENT MACHINIST Pain Pain Assessment Grid Pain 1 Location : Vagina Intensity : 3 NIMISHA RIOJAS V - 08/04/2011 10:06 HYDROELECTRIC COMPONENT MACHINIST Dependent Habits Tobacco Use/Currently Using : No Smoking Status : Never smoker Alcohol Use : No NIMISHA RIOJAS V - 08/04/2011 10:06 HYDROELECTRIC COMPONENT MACHINIST Caffeine Use Grid Caffeine Use : Current Type : Coffee Frequency : Weekly NIMISHA RIOJAS 08/04/2011 10:06 HYDROELECTRIC COMPONENT MACHINIST Recreational Drug Use Grid Drug Use : None NIMISHA RIOJAS V 08/04/2011 10:06 HYDROELECTRIC COMPONENT MACHINIST Allergy Allergies (Active) Glutens Estimated Onset Date: Unspecified ; Created By: PATTI ALMENDAREZ LPN; Reaction Status: Active; Category: Drug ; Substance: Glutens ; Type: Allergy ; Updated By: PATTI ALMENDAREZ LPN; Reviewed Date: 07/29/2011 14:21 HYDROELECTRIC COMPONENT MACHINIST Nuts Estimated Onset Date: Unspecified ; Created By: PATTI ALMENDAREZ LPN; Reaction Status: Active ; Category: Food ; Substance: Nuts ; Type: Allergy ; Updated By: PATTI ALMENDAREZ LPN; Reviewed Date: 07/29/2011 14:21 HYDROELECTRIC COMPONENT MACHINIST Source: [facility] POWERCHART Document Id: [id number] HYDROELECTRIC COMPONENT MACHINIST!30 documented in this encounter Plan of Treatment Not on filedocumented as of this encounter Visit Diagnoses Not on filedocumented in this encounter
--- OUTSIDE RECORDS SUMMARY | 2022-05-06 13:13 | XMS_ITS | Encounter Summary ---
:1935 Author Organization [facility] Address [address] [place] [id number] Care Team Providers Name Role Phone Unavailable Primary Care Provider Unavailable Encounter Details Date Type Department Care Team Description 03/21/2011 Hospital Encounter HX [facility] ED Cristina Villagomez M.D. [address] [place] [address] 021 (Wo rk) Social History Tobacco Use Types Packs/Day Years Used Date Smoking Tobacco: Never Assessed Sex Assigned at Date Recorded Not on file documented as of this encounter Discharge Summaries Alyse Yi, RDannN. - 03/21/2011 8:25 PM CDT ED Depart Summary [facility] Emergency Department Clinical Discharge Summary PERSON INFORMATION Name KATHRYN LEON Age 76 Years 1935 12:00 AM Sex Female Language Mongolian PCP ALBANIA VARMA RN, ASSEMBLY LEADER Marital Status N [id number] Visit Id Visit Reason Laceration; cut on leg Specialty Enc Type Emergency Med Service Emergency Medicine Referred by Track Group [facility] ED Discharge 03/21/2011 8:25 PM Tracking Id [id number] Checkout 03/21/2011 8:25 PM Checkin 03/21/2011 7:41 PM Acuity 4 -Less Urgent Dispo Type * Discharged to Home or Self Care Arrival 03/21/2011 7:41 PM Reg Status LOS 000 00:44 Address: [address] [place] [phone] Comment: PROVIDER INFORMATION Provider Role Assigned Unassigned ALYSE YI LPN RN HOSPICE Nurse 03/21/2011 7:49 PM AZAR VILLAGOMEZ MD ED Provider 03/21/2011 7:53 PM DIAGNOSIS Leg laceration repair Comment: PATIENT EDUCATION INFORMATION Instructions: LACERATION, Extrem (suture, staple or tape) Follow up: With: Address: When: ALBANIA VARMA [address] [place] [phone] phone, Room n House (1) Within 2weeks Comments: Eight sutures need to be removed. Source: [facility] POWERCHART Document Id: [id number] Alyse Yi, R.N. - 03/21/2011 8:25 PM CDT ED Discharge Instructions [address] [address] Name: KATHRYN LEON Date of : 1935 12:00 AM Visit Date: 03/21/2011 7:41 PM Address: [address] [place] [phone] Primary Care Provider: ALBANIA VARMA RN, ASSEMBLY LEADER IMPORTANT: [facility] in [place] would like to thank you for allowing us to assist you with your healthcare needs. The following includes patient education materials and informationregarding your injury/illness. Follow-Up Instructions: With: Address: When: ALBANIA VARMA [address] [place] [phone] phone, Room n House (1) Within 2weeks Comments: Eight sutures need to be removed. Patient Education Materials: [id number] LACERATION, EXTREMITY [sutures, kirti or tape] A LACERATION is a cut through the skin. This will usually require stitches (sutures) or kirti if it is deep. Minor cuts may be treated with surgical tape closures (Steri-Strips). HOME CARE: 1) Keep the wound clean and dry. If a bandage was applied and it becomes wet or dirty, replace it. Otherwise, leave it in place for the first 24 hours, then change it once a day or as directed. 2) If stitches or kirti were used, clean the wound daily: -- After removing the bandage, wash the area with soap and water. Use a wet cotton swab (Q tip) to loosen and remove any blood or crust that forms. -- After cleaning, apply a thin layer of Polysporin or Bacitracin ointment. This will keep the woundclean and make it easier to remove the stitches or kirti. Reapply the bandage. -- You may remove the bandage to shower as usual after the first 24 hours, but do not soak the area in water (no swimming) until the stitches or kirti are removed. 3) If Steri-Strips were used, keep the area clean and dry. If it becomes wet, blot it dry with a towel. 4) You may use acetaminophen (Tylenol) or ibuprofen (Motrin, Advil) to control pain, unless another pain medicine was prescribed. [ NOTE : If you have chronic liver or kidney disease or ever had a stomach ulcer or GI bleeding, talk with your doctor before using these medicines.] FOLLOW UP: Most skin wounds heal within ten days. However, an infection may sometimes occur despite proper treatment. Therefore, check the wound daily for the signs of infection listed below. Stitches and staplesshould be removed within 7-14 days. If Steri-Strips were used, you may remove them after 10 days, ifthey have not fallen off by then. Notify your doctor if you notice persistent numbness or weakness in the injured extremity. [NOTE: A radiologist will review any X-rays that were taken. We will notify you of any new findings that may affect your care.] GET PROMPT MEDICAL ATTENTION if any of the following occur: -- Increasing pain in the wound -- Redness, swelling or pus coming from the wound -- Fever over 100.0?? F (37.8?? C) oral, or over 101.0?? F (38.3?? C) rectal -- If stitches or kirti come apart or fall out before your next appointment -- If the Steri-Strips fall off within seven days, or the wound edges re-open -- Bleeding not controlled by direct pressure ?? [id number] [employer], [address] [place] [address], [place] [address]. All rights reserved. This information is not intended as a substitute for professional medical care. Always follow your healthcare professional's instructions. Discharge Prescriptions & Home Medications: Medication/Strength Dose Route Frequency Indications/Special Instructions/Comments bisacodyl (bisacodyl 5 mg oral enteric coated tablet) 20 mg Oral once per instructions for colonoscopy prep hydrochlorothiazide (hydrochlorothiazide 12.5 mg oral capsule) 12.5 mg Oral once a day fexofenadine-pseudoephedrine (Rochelle-D [...] tablet) 1 tab(s) Oral every other day omeprazole (omeprazole) 40 mg Oral once a [...] home that are not on this list, please contact your provider for clarification. Medication Reconciliation: [...] the instructions above carefully. If you are a patient that is [...] physician. Patient Signature or Responsible Green Party/Relationship Date/Time Provider Signature Date/Time Medication Reconciliation: Reconciliation is a process of [...] the instructions above carefully. If you are a patient that is [...] physician. Patient Signature or Responsible Green Party/Relationship Date/Time Provider Signature Date/Time Source: [facility] BaseTraceCHART Document Id: [id number] documented in this encounter Medications at Time [...] eye daily. documented as of this encounter Nursing Notes Alyse Yi, R.N. - 03/21/2011 8:04 PM CDT ED Primary Assessment ED Primary Assessment Entered On: 03/21/2011 20:07 CDT Performed On: 03/21/2011 20:04 CDT by ALYSE YI RN Reason For Visit Problems(Active) Allergic rhinitis, unspecified Name of Problem: Allergic rhinitis, unspecified ; Onset Date: 1952 ; Recorder: PATTI ALMENDAREZ LPN; Confirmation: Confirmed ; Classification: Nursing ; Code: 1231 ; Contributor System: [employer] ; Last Updated: 01/21/2011 5:04 CDT ; Life Cycle Date: 10/25/2010 ; Life Cycle Status: Active ; Responsible Provider: PATTI ALMENDAREZ LPN; Vocabulary: ICD-9-CM Arthritis, rheumatoid* Name of Problem: Arthritis, rheumatoid* ; Onset Date: 02/27/1980 ; Recorder: PATTI ALMENDAREZ LPN; Confirmation: Confirmed ; Classification: Nursing ; Code: 1231 ; Contributor System: YonesChart ; Last Updated: 10/25/2010 14:18 MECHANICAL DESIGNER ; Life Cycle Date: 10/25/2010 ; Life Cycle Status: Active ; Responsible Provider: PATTI ALMENDAREZ LPN; Vocabulary: ICD-9-CM Cataract NOS Name of Problem: Cataract NOS ; Onset Date: 1991 ; Recorder: PATTI ALMENDAREZ LPN; Confirmation: Confirmed ; Classification: Nursing ; Code: 1231 ; Contributor System: YonesChart ; Last Updated: 01/21/2011 5:04 CDT ; Life Cycle Date: 10/25/2010 ; Life Cycle Status: Active ; Responsible Provider: PATTI ALMENDAREZ LPN; Vocabulary: ICD-9-CM Celiac Disease Name of Problem: Celiac Disease ; Onset Date: 02/26/2007 ; Recorder: PATTI ALMENDAREZ LPN; Confirmation: Confirmed ; Classification: Nursing ; Code: 1231 ; Contributor System: PowerChart ; Last Updated: 10/25/2010 14:20 MECHANICAL DESIGNER ; Life Cycle Date: 10/25/2010 ; Life Cycle Status: Active ; Responsible Provider: PATTI ALMENDAREZ LPN; Vocabulary: ICD-9-CM Diverticulitis of large intestine Name of Problem: Diverticulitis of large intestine ; Onset Date: 10/28/2010 ; Recorder: ALBANIA VARMA RN, CNP; Confirmation: Confirmed ; Classification: Medical ; Code: 1231 ; Last Updated: 10/28/2010 10:30 MECHANICAL DESIGNER ; Life Cycle Date: 10/28/2010 ; Life Cycle Status: Active ; Responsible Provider: ALBANIA VARMA RN, CNP; Vocabulary: ICD-9-CM Glaucoma Name of Problem: Glaucoma ; Onset Date: 1986 ; Recorder: PATTI ALMENDAREZ LPN; Confirmation:Confirmed ; Classification: Nursing ; Code: 1231 ; Contributor System: YonesChart ; Last Updated: 01/21/2011 5:05 CDT ; Life Cycle Date: 10/25/2010 ; Life Cycle Status: Active ; Responsible Provider: PATTI ALMENDAREZ LPN; Vocabulary: ICD-9-CM 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 Name of Problem: 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 ; Recorder: ALBANIA VARMA RN, ASSEMBLY LEADER; Confirmation: Confirmed ; Classification: Medical ; Code: 1231 ; Contributor System: YonesChart ; Last Updated: 11/04/2010 3:49 MECHANICAL DESIGNER ; Life Cycle Date: 11/04/2010 ; Life Cycle Status: Active ; Responsible Provider: ALBANIA VARMA RN, ASSEMBLY LEADER; Vocabulary: ICD-9-CM Osteopenia Name of Problem: Osteopenia ; Onset Date: 02/26/1987 ; Recorder: PATTI ALMENDAREZ LPN; Confirmation: Confirmed ; Classification: Nursing ; Code: 1231 ; Contributor System: YonesChart ; Last Updated: 10/25/2010 14:19 MECHANICAL DESIGNER ; Life Cycle Date: 10/25/2010 ; Life Cycle Status: Active ; Responsible Provider: PATTI ALMENDAREZ LPN; Vocabulary: ICD-9-CM Other and Unspecified Vaginal Hysterectomy Name of Problem: Other and Unspecified Vaginal Hysterectomy ; Onset Date: 02/26/1967 ; Recorder: PATTI ALMENDAREZ LPN; Confirmation: Confirmed ; Classification: Nursing ; Code: 1231 ; Contributor System: PowerChart ; Last Updated: 10/25/2010 14:22 MECHANICAL DESIGNER ; Life Cycle Date: 10/25/2010 ; Life Cycle Status: Active ; Responsible Provider: PATTI ALMENDAREZ LPN; Vocabulary: ICD-9-CM Other Repair of Bladder Name of Problem: Other Repair of Bladder ; Onset Date: 02/26/1995 ; Recorder: PATTI ALMENDAREZ LPN; Confirmation: Confirmed ; Classification: Nursing ; Code: 1231 ; Contributor System: PowerChart ; Last Updated: 11/04/2010 3:55 MECHANICAL DESIGNER ; Life Cycle Date: 10/25/2010 ; Life Cycle Status: Active ; Responsible Provider: PATTI ALMENDAREZ LPN; Vocabulary: ICD-9-CM Diagnoses(Active) Laceration Date: 03/21/2011 19:45 CDT ; Diagnosis Type: Reason For Visit ; Confirmation: Complaint of ; Classification: Medical ; Clinical Service: Emergency medicine ; Code: PNED ; Probability: 0 ; Diagnosis Code: [id number] Triage Information Given By: Patient Accompanied By: Spouse Mode of Arrival ED: Private vehicle, Ambulatory Track: Trauma Other Languages: Mongolian Pain Symptoms: Yes ALYSE YI RN 03/21/2011 20:04 CDT Allergy Allergies (Active) Glutens Estimated Onset [...] ALMENDAREZ LPN; Reviewed Date: 02/04/2011 9:32 CDT Immunizations Immunizations Current: Yes Last Tetanus: < 5 years Pneumovac: Other: Influenza: Last year ALYSE YI 03/21/2011 20:04 CDT Respiratory Airway: Patent Respirations: Unlabored Respiratory Pattern: Regular Oxygen Therapy: Room air ALYSE YI 03/21/2011 20:04 CDT Cardiovascular Heart Rhythm: Regular Skin Color: Cornfields Skin Description: Dry Skin Temperature: Warm ALYSE YI 03/21/2011 20:04 CDT Neurological Level of Consciousness: Alert Orientation: Oriented x 3 Characteristics of Speech: Clear Neuro Patient Stated Symptoms: None Gait: Steady Swallowing Difficulty/Aspiration Risk: None Loss of Consciousness: No ALYSE YI 03/21/2011 20:04 CDT ED Psychosocial Affect/Behavior: Calm, Cooperative, Appropriate Domestic Abuse Concerns: None Emotional Support Available: Yes ANA YINadeen Radha RN 03/21/2011 20:04 CDT Gastrointestinal Nutrition ED: Adequate ALYSE YI 03/21/2011 20:04 CDT /OB Assessment Patient Stated Symptoms: None ALYSE YI 03/21/2011 20:04 CDT Integumentary Integumentary Patient Stated Symptoms: Other: laceration right ankle Skin Turgor: Elastic Skin Integrity: Not intact Mucous Membrane Color: Cornfields Mucous Membrane Description: Moist Skin Color: Cornfields Skin Description: Dry Skin Temperature: Warm ALYSE YI RN - 03/21/2011 20:04 CDT Musculoskeletal Fall Prevention Education Provided: ALYSE RANDLE RN - 03/21/2011 20:04 CDT Social Habits Alcohol Use Grid Alcohol Use: No ALYSE YI RN - 03/21/2011 20:04 CDT Tobacco Use Grid Tobacco Use: None ALYSE YI RN - 03/21/2011 20:04 CDT Recreational Drug Use Grid Drug Use: None ALYES YI RN - 03/21/2011 20:04 CDT Source: [employer] Document Id: [id number]!60 documented in this encounter ED Notes Alyse Yi R.N. - 03/21/2011 8:24 PM CDT ED Disposition Summary ED Disposition Summary Entered On: 03/21/2011 20:24 CDT Performed On: 03/21/2011 20:24 CDT by ALYSE YI RN ED Disposition Summary Accompanied By: Spouse Mode of Discharge: Ambulatory Transportation: Private vehicle Discharge From ED With: Home Med List, Other: wound care instructions Patient Status at Discharge from ED: Improved ALYSE YI RN - 03/21/2011 20:24 CDT Source: [employer] Document Id: [id number] CDT!7 Azar Villagomez M.D. - 03/21/2011 7:54 PM CDT Laceration Lower Extremity *ED Patient: KATHRYN LEON - CF MRN Age: 76 years Sex: Female : 1935 Author: AZAR VILLAGOMEZ MD Basic Information Time seen: Date & time 03/21/2011 19:55:00. History source: Patient, significant other. Arrival mode: Private vehicle, wheelchair. History limitation: None. Additional information:: Chief Complaint from Nursing Triage Note : Chief Complaint Description. 03/21/2011 19:44 CDT Chief Complaint Description pt tripped over metal lawn ornament and cut her right ineer ankle History of Present Illness The patient presents with right, leg laceration(s), While she and her were clearing off their deck in preparation for the deck to be stained, she turned her attention to a gilbert sierra. She did not notice the rooster watering can, and ran into it. It caused a laceration above her right medial malleolus.. The onset was just prior to arrival. The course/duration of symptoms is constant. Type of injury: an incision. The location where the incident occurred was at home. Location: Right medial leg. The character of symptoms is bleeding. The degree of bleeding is minimal. The degree of pain is minimal. Exacerbating factors consist of none. The relieving factor is rest. Risk factors consist of not diabetes mellitus, not anticoagulated not alcohol abuse. Prior episodes: none. Therapy today: none. Associated symptoms: none. Review of Systems Constitutional symptoms: Negative except as documented in HPI. Eye symptoms: Treated for glaucoma.. Gastrointestinal symptoms: Preparing for colonoscopy in 5 days.. 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 Health Status Allergies: . Allergic Reactions (all) Glutens, Nuts Immunizations: Tetanus up to date. Past Medical/ Family/ Social History Surgical history: Surgical history. Laminectomy approach to lumbar spine ([id number]) in 2008 at 73 Years. Extracapsular cataract removal with insertion of intraocular lens prosthesis (1 stage procedure), manual or mechanical technique (eg, irrigation and aspiration or phacoemulsification) ([id number]) in 2006 at 72 Years. 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 Hysterectomy ([id number]) in 1966 at 31 Years. Hemorrhoidectomy, internal and external, single column/group; ([id number]) in 1958 at 24 Years. Family history: Not significant. Social history: Alcohol use: Occasionally, Tobacco use: Denies, Occupation: Retired, Family/social situation: . Physical Examination Vital signs: Vital Signs. 03/21/2011 19:44 CDT Temperature Core 36.6 C Peripheral Pulse Rate 72 /min Respiratory Rate 18 /min SpO2 96 % Systolic Blood Pressure 122 mmHg Diastolic Blood Pressure 56 mmHg General: Alert. no acute distress. Skin: Warm. dry. Head: Normocephalic Eye: Pupils are equal, round and reactive to light Cardiovascular: Regular rate and rhythm Respiratory: Respirations are non-labored Musculoskeletal: Lower extremity: right, medial, distal, tibia and Laceration: 3 cm linear muscular involvement Neurological: Alert and oriented to person, place, time, and situation Psychiatric: Cooperative Medical Decision Making Differential Diagnosis:: Leg laceration. Documents reviewed:Prior records. Procedure Laceration repair Confirmed: Patient, procedure, side, and site correct. Consent: Patient, Has given verbal consent. Description/ repair Laceration 3 cm in length.Lower extremity: right, medial, lower, leg. Shape: linear. Depth: muscle involvement. Details: clean. Neurovascular/ tendon exam: intact. Anesthesia: 10 ml, 1% lidocaine, injected locally. Preparation: sterile field established, skin prepped with soap. Irrigation: minimal. Debridement: none. Skin closure: # 8 sutures, with 4 -0 Nylon, simple technique, interrupted technique. Complexity: single layer. Post procedure exam: Circulation, motor, sensory, tendon examination intact, Bleeding controlled. Complications: None. Patient tolerated: Well. Performed by: Self. Total time: 20 minutes. Impression and Plan Diagnosis Laceration of the lower leg (Discharge, Emergency medicine, Medical) Discharge plan Condition: Improved, Stable. Dispositioned: To home. Patient was given the following educational materials: LACERATION, Extrem (suture, staple or tape). Follow up with: ALBANIA VARMA Within 2 weeks Eight sutures need to be removed.. Counseled: Patient, Family, Regarding diagnosis, Regarding prescription, Patient indicated understanding of instructions. Source: [facility] POWERCHART Document Id: [id number]} Alyse Yi R.N. - 03/21/2011 7:44 PM CDT ED Triage Assessment ED Triage Assessment Entered On: 03/21/2011 19:49 CDT Performed On: 03/21/2011 19:44 CDT by ALYSE YI RN Reason For Visit Problems(Active) Allergic rhinitis, unspecified Name of Problem: Allergic rhinitis, unspecified ; Onset Date: 1952 ; Recorder: PATTI ALMENDAREZ LPN; Confirmation: Confirmed ; Classification: Nursing ; Code: 1231 ; Contributor System: YonesChart ; Last Updated: 01/21/2011 5:04 CDT ; Life Cycle Date: 10/25/2010 ; Life Cycle Status: Active ; Responsible Provider: PATTI ALMENDAREZ LPN; Vocabulary: ICD-9-CM Arthritis, rheumatoid* Name of Problem: Arthritis, rheumatoid* ; Onset Date: 02/27/1980 ; Recorder: PATTI ALMENDAREZ LPN; Confirmation: Confirmed ; Classification: Nursing ; Code: 1231 ; Contributor System: YonesChart ; Last Updated: 10/25/2010 14:18 MECHANICAL DESIGNER ; Life Cycle Date: 10/25/2010 ; Life Cycle Status: Active ; Responsible Provider: PATTI ALMENDAREZ LPN; Vocabulary: ICD-9-CM Cataract NOS Name of Problem: Cataract NOS ; Onset Date: 1991 ; Recorder: PATTI ALMENDAREZ LPN; Confirmation: Confirmed ; Classification: Nursing ; Code: 1231 ; Contributor System: YonesChart ; Last Updated: 01/21/2011 5:04 CDT ; Life Cycle Date: 10/25/2010 ; Life Cycle Status: Active ; Responsible Provider: PATTI ALMENDAREZ LPN; Vocabulary: ICD-9-CM Celiac Disease Name of Problem: Celiac Disease ; Onset Date: 02/26/2007 ; Recorder: PATTI ALMENDAREZ LPN; Confirmation: Confirmed ; Classification: Nursing ; Code: 1231 ; Contributor System: PowerChart ; Last Updated: 10/25/2010 14:20 MECHANICAL DESIGNER ; Life Cycle Date: 10/25/2010 ; Life Cycle Status: Active ; Responsible Provider: PATTI ALMENDAREZ LPN; Vocabulary: ICD-9-CM Diverticulitis of large intestine Name of Problem: Diverticulitis of large intestine ; Onset Date: 10/28/2010 ; Recorder: ALBANIA VARMA RN, ASSEMBLY LEADER; Confirmation: Confirmed ; Classification: Medical ; Code: 1231 ; Last Updated: 10/28/2010 10:30 MECHANICAL DESIGNER ; Life Cycle Date: 10/28/2010 ; Life Cycle Status: Active ; Responsible Provider: ALBANIA VARMA RN, CNP; Vocabulary: ICD-9-CM Glaucoma Name of Problem: Glaucoma ; Onset Date: 1986 ; Recorder: PATTI ALMENDAREZ LPN; Confirmation:Confirmed ; Classification: Nursing ; Code: 1231 ; Contributor System: YonesChart ; Last Updated: 01/21/2011 5:05 CDT ; Life Cycle Date: 10/25/2010 ; Life Cycle Status: Active ; Responsible Provider: PATTI ALMENDAREZ LPN; Vocabulary: ICD-9-CM 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 Name of Problem: 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 ; Recorder: ALBANIA VARMA RN, CNP; Confirmation: Confirmed ; Classification: Medical ; Code: 1231 ; Contributor System: YonesChart ; Last Updated: 11/04/2010 3:49 MECHANICAL DESIGNER ; Life Cycle Date: 11/04/2010 ; Life Cycle Status: Active ; Responsible Provider: ALBANIA VARMA RN, CNP; Vocabulary: ICD-9-CM Osteopenia Name of Problem: Osteopenia ; Onset Date: 02/26/1987 ; Recorder: PATTI ALMENDAREZ LPN; Confirmation: Confirmed ; Classification: Nursing ; Code: 1231 ; Contributor System: YonesChart ; Last Updated: 10/25/2010 14:19 MECHANICAL DESIGNER ; Life Cycle Date: 10/25/2010 ; Life Cycle Status: Active ; Responsible Provider: PATTI ALMENDAREZ LPN; Vocabulary: ICD-9-CM Other and Unspecified Vaginal Hysterectomy Name of Problem: Other and Unspecified Vaginal Hysterectomy ; Onset Date: 02/26/1967 ; Recorder: PATTI ALMENDAREZ LPN; Confirmation: Confirmed ; Classification: Nursing ; Code: 1231 ; Contributor System: PowerChart ; Last Updated: 10/25/2010 14:22 MECHANICAL DESIGNER ; Life Cycle Date: 10/25/2010 ; Life Cycle Status: Active ; Responsible Provider: PATTI ALMENDAREZ LPN; Vocabulary: ICD-9-CM Other Repair of Bladder Name of Problem: Other Repair of Bladder ; Onset Date: 02/26/1995 ; Recorder: PATTI ALMENDAREZ LPN; Confirmation: Confirmed ; Classification: Nursing ; Code: 1231 ; Contributor System: YonesChart ; Last Updated: 11/04/2010 3:55 MECHANICAL DESIGNER ; Life Cycle Date: 10/25/2010 ; Life Cycle Status: Active ; Responsible Provider: PATTI ALMENDAREZ LPN; Vocabulary: ICD-9-CM Diagnoses(Active) Laceration Date: 03/21/2011 19:45 CDT ; Diagnosis Type: Reason For Visit ; Confirmation: Complaint of ; Classification: Medical ; Clinical Service: Emergency medicine ; Code: PNED ; Probability: 0 ; Diagnosis Code: [id number] Triage Chief Complaint Description: pt tripped over metal lawn ornament and cut her right ineer ankle Information Given By: Patient Accompanied By: Spouse Mode of Arrival ED: Private vehicle, Ambulatory Languages: Mongolian Pain Symptoms: Yes Vital Signs Assessed: Yes ALYSE YI RN - 03/21/2011 19:44 CDT Pain Pain Assessment Grid Pain 1 Location: Other: right ankle Laterality: Right Intensity: 5 Onset: Sudden Comments (Comment: pt had no pain until area was cleansed with hibiclens [ALYSE YI RN - 03/21/2011 19:44 CDT] ) ALYSE YI RN - 03/21/2011 19:44 CDT Vital Signs Temperature Core: 36.6C(Converted to: 97.9DegF) Peripheral Pulse Rate: 72/min Respiratory Rate: 18/min Systolic Blood Pressure: 122mmHg Diastolic Blood Pressure: 56mmHg NIBP Mean: 78mmHg BP Location: Left upper extremity SpO2: 96% Oxygen Therapy: Room air ALYSE YI RN - 03/21/2011 19:44 CDT ED Physician Notification Time ED Physician Notification Time: 03/21/2011 19:49 CDT ALYSE YI RN - 03/21/2011 19:44 CDT CAMI CAMI Level 1: No CAMI Level 2: No CAMI Level 3: One ALYSE YI RN - 03/21/2011 19:44 CDT DCP GENERIC CODE Tracking Acuity: 4 -Less Urgent Tracking Group: [facility] ED ALYSE YI RN - 03/21/2011 19:44 CDT Allergy Allergies (Active) Glutens Estimated Onset [...] LPN; Reviewed Date: 02/04/2011 9:32 CDT Source: [employer] Document Id: [id number]!35 documented in this encounter Miscellaneous Notes Miscellaneous - Alyse Yi R.N. - 03/21/2011 8:24 PM CDT Valuables/Belongings Valuables/Belongings Entered On: 03/21/2011 20:24 CDT Performed On: 03/21/2011 20:24 CDT by ALYSE YI RN Valuables/Belongings Home Medication Disposition: None brought in with patient ALYSE YI RN - 03/21/2011 20:24 CDT [facility] Document Id: [id number] CDT!3 Miscellaneous - Alyse Yi R.N. - 03/21/2011 7:41 PM CDT Facility Charge Ticket Facility Charge Ticket Entered On: 03/21/2011 20:25 CDT Performed On: 03/21/2011 19:41 CDT by ALYSE YI RN Facility Charge TVL Level for Facility Charge Ticket: Level 2 Mode of Arrival ED: Private vehicle, Ambulatory [facility] Mode of Arrival Interpreted: Standard [facility] Process Management: None [facility] Order Management: None 30 Minutes Critical Care: No [facility] Nursing Assessment: Triage and 1-2 nursing assessments [facility] Disposition: Discharge [facility] Total Points with Diagnosis Control: 4 [facility] Visit Level: 85818 Level 2 ALYSE YI RN - 03/21/2011 20:25 CDT [facility] Document Id: [id number] CDT!12 documented in this encounter Plan of Treatment Not on filedocumented as of this encounter Visit Diagnoses Not on filedocumented in this encounter
--- OUTSIDE RECORDS SUMMARY | 2022-05-06 13:13 | XMS_ITS | Encounter Summary ---
:1935 Author Organization [facility] Address [address] [place] [id number] Care Team Providers Name Role Phone Unavailable Primary Care Provider Unavailable Encounter Details Date Type Department Care Team Description 01/05/2012 Hospital Encounter HX [facility] ED Tammy Aceves Jr., M.D. [address] [place] [address] [id number] (Wo rk) Social History Tobacco Use Types Packs/Day Years Used Date Smoking Tobacco: Never Assessed Sex Assigned at Date Recorded Not on file documented as of this encounter Last Filed Vital Signs Vital Sign Reading Time Taken Comments Blood Pressure 163/74 01/05/2012 6:50 PM CDT Pulse 84 01/05/2012 6:50 PM CDT Temperature - - Respiratory Rate - - Oxygen Saturation - - Inhaled Oxygen Concentration - - Weight - - Height - - Body Mass Index - - documented in this encounter Discharge Summaries Conversion, Historical Provider Ser - 01/05/2012 7:04 PM CDT ED Discharge Instructions [id number] [place] [address] Name: KATHRYN LEON Date of : 1935 12:00 AM Visit Date: 01/05/2012 6:07 PM Address: [address] [place] [phone] Primary Care Provider: ALBANIA VARMA RN, CHEMICAL PROCESS ENGINEER IMPORTANT: [facility] [place] would like to thank you for allowing us to assist you with your healthcare needs. The following includes patient education materials and informationregarding your injury/illness. 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 The optic nerve conducts light signals from the retina to the brain and allows you to see visual images. Eye fluid is constantly produced within the eye and excess fluid drains out into the bloodstream. Open angle glaucoma is a condition where the fluid pressure in the eye gradually increases and reduces blood flow to the optic nerve. This causes a gradual loss of vision, which may progress to complete blindness if not treated. The cause for glaucoma is not known. Open angle glaucoma is painless. The first symptoms may be loss of peripheral (side) vision. Since most people dont pay much attention to their peripheral vision, you may have a lot of vision loss before you become aware of the problem. The vision loss is permanent. Open angle glaucoma can be treated with eyedrops, and sometimes pills, to lower the pressure in the eye. Treatment is usually successful at keeping pressures low and preventing further vision loss. However, the condition cannot be cured. You will need to receive treatment for the rest of your life. Regular follow-up care with an pig machine supervisor (a medical doctor who specializes in eye care) is very important to follow your response to the medicines. HOME CARE 1. Take prescribed medicines exactly as directed. 2. The eye needs certain vitamins and minerals for good health-especially vitamins A, C, and E, as well as zinc and copper. Eat a healthy diet full of fruits and vegetables to ensure that you get enough of these nutrients. If you have trouble following a balanced diet, consider taking a vitamin and mineral supplement. 3. Drink 6-8 glasses of water in the course of a day. Drinking too much at one time (more than 1 quart) may increase eye pressure. 4. Limit the amount of caffeine that you drink. 5. Regular exercise (3 times a week) may help reduce eye pressure. Avoid exercise positions with your head below your waist (such as bending over). This position will increase eye pressure. Talk to your doctor about an appropriate exercise program for you. 6. Protect your eyes. An eye injury can cause increased eye pressure. Wear safety glasses or goggleswhen you play sports, use tools or machinery, or work with chemicals. FOLLOW UP: with your eye doctor as advised by our staff. Regular appointments will help make sure that your treatment is helping to keep your eyes at a safe pressure. NOTE: Since open angle glaucoma tends to run in families, other family members over the age of 40 should be examined by an eye doctor. GET PROMPT MEDICAL ATTENTION if any of the following occur: ?? Further loss of peripheral vision ?? Blurred vision ?? Eye pain or redness ?? Severe headache ?? [place] halos around lights Sudden loss of vision ?? [phone] [employer], [address] [place] [address]. All rights reserved. This information is not intended as a substitute for professional medical care. Always follow your healthcare professional's instructions. ED Tests and Procedures: Order Status Discharge Prescriptions & Home Medications: Medication/Strength Dose Route Frequency Indications/Special Instructions/Comments prednisoLONE ophthalmic (Prednisolone Acetate 1%) 1 drop(s) Eye(Right) every 2 hours gatifloxacin ophthalmic (gatifloxacin 0.5% ophthalmic solution) 1 drop(s) Eyes(Both) two times a day travoprost ophthalmic (travoprost 0.004% ophthalmic solution) 1 drop(s) Eye(Right) every evening omeprazole (omeprazole 40 mg oral delayed release capsule) 40 mg Oral once a day gabapentin (gabapentin 300 mg oral capsule) 1 cap(s) in the morning and 3 cap(s) at bedtime Oral as directed ID [id number] brdrsfluticasone nasal (Flonase 0.05 mg/inh nasal spray) 2 [...] solution) 1 drop(s) two times a day Comment: Attention: If you have any medications [...] had special tests, such as EKG's or X-rays, we will review them again within 24 [...] ride home with a responsible alliance party. I, KATHRYN LEON , or responsible alliance party [...] had special tests, such as EKG's or X-rays, we will review them again within 24 [...] Responsible Green Party/Relationship Date/Time Provider Signature Date/Time This document has images extracted. Please consider using [employer] for all your patient education needs. Source: [facility] Document Id: [id number] Conversion, Historical Provider Ser - 01/05/2012 7:04 PM CDT ED Depart Summary [facility] Emergency Department Clinical Discharge Summary PERSON INFORMATION Name KATHRYN LEON Age 76 Years 1935 12:00 AM Sex Female Language [place] PCP ALBANIA VARMA RN, CHEMICAL PROCESS ENGINEER Marital Status Visit Id Visit Reason EYE INJURY Specialty Enc Type Emergency Med Service Emergency Medicine Referred by Track Group [facility] ED Discharge 01/05/2012 7:00 PM Tracking Id [id number] Checkout 01/05/2012 7:00 PM Checkin 01/05/2012 6:07 PM Acuity Dispo Type * Discharged to Home or Self Care Arrival 01/05/2012 6:07 PM Reg Status LOS 000 00:53 Address: [address] [place] [phone] Comment: PROVIDER INFORMATION Provider Role Provider Contact Time SUSI ALVAREZ ED Nurse 01/05/12 18:14 DIAGNOSIS Comment: PATIENT EDUCATION INFORMATION Instructions: GLAUCOMA, Open Angle (Chronic) Follow up: With: Address: When: ALBANIA VARMA [address] [place], [place] [phone] [facility] (5) Within As Needed Comments: With: Address: When: with eye md tomorrow or sooner as needed Within As Needed Comments: Source: [facility] POWERCHART Document Id: [id number] documented in this encounter Medications at Time [...] documented as of this encounter Nursing Notes Conversion, Historical Provider Ser - 01/05/2012 6:53 PM CDT ED Pain Assessment ED Pain Assessment Entered On: 01/05/2012 18:53 CDT Performed On: 01/05/2012 18:53 CDT by SUSI ALVAREZ Pain Assessment Pain Symptoms : Yes SUSI ALVAREZ - 01/05/2012 18:53 CDT Source: [facility] [employer] Document Id: [id number] CDT!3 Conversion, Historical Provider Ser - 01/05/2012 6:35 PM CDT ED Primary Assessment ED Primary Assessment Entered On: 01/05/2012 18:39 CDT Performed On: 01/05/2012 18:35 CDT by SUSI ALVAREZ Reason For Visit Problems(Active) Allergic rhinitis, unspecified Name of Problem: Allergic rhinitis, unspecified ; Onset Date: 1952 ; Recorder: PATTI ALMENDAREZ LPN; Confirmation: Confirmed ; Classification: Nursing ; Code: 1231 ; Contributor System: ScholrlyChart ; Last Updated: 01/21/2011 10:04 CDT ; Life Cycle Date: 10/25/2010 ; Life Cycle Status: Active ; Responsible Provider: PATTI ALMENDAREZ LPN; Vocabulary: ICD-9-CM ; Comments: 12/31/2010 12:10 - PATTI ALMENDAREZ LPN date unk Arthritis, rheumatoid* Name of Problem: Arthritis, rheumatoid* ; Onset Date: 02/27/1980 ; Recorder: PATTI ALMENDAREZ LPN; Confirmation: Confirmed ; Classification: Nursing ; Code: 1231 ; Contributor System: ScholrlyChart ; Last Updated: 10/25/2010 20:18 [employer] ; Life Cycle Date: 10/25/2010 ; Life Cycle Status: Active ; Responsible Provider: PATTI ALMENDAREZ LPN; Vocabulary: ICD-9-CM Bursitis Hip/Trochanertic Name of Problem: Bursitis Hip/Trochanertic ; Onset Date: 10/20/2011 ; Recorder: ALBANIA VARMA RN, CHEMICAL PROCESS ENGINEER; Confirmation: Confirmed ; Classification: Medical ; Code: 1231 ; Last Updated: 10/20/2011 9:54 [employer] ; Life Cycle Status: Active ; Responsible Provider: ALBANIA VARMA RN, CNP; Vocabulary: ICD-9-CM Cataract NOS Name of Problem: Cataract NOS ; Onset Date: 1991 ; Recorder: PATTI ALMENDAREZ LPN; Confirmation: Confirmed ; Classification: Nursing ; Code: 1231 ; Contributor System: ScholrlyChart ; Last Updated: 01/21/2011 10:04 CDT ; Life Cycle Date: 10/25/2010 ; Life Cycle Status: Active ; Responsible Provider: PATTI ALMENDAREZ LPN; Vocabulary: ICD-9-CM ; Comments: 12/31/2010 12:11 - PATTI ALMENDAREZ LPN date unknown Celiac Disease Name of Problem: Celiac Disease ; Onset Date: 02/26/2007 ; Recorder: PATTI ALMENDAREZ LPN; Confirmation: Confirmed ; Classification: Nursing ; Code: 1231 ; Contributor System: ScholrlyChart ; Last Updated: 10/25/2010 20:20 [employer] ; Life Cycle Date: 10/25/2010 ; Life Cycle Status: Active ; Responsible Provider: PATTI ALMENDAREZ LPN; Vocabulary: ICD-9-CM Diverticulitis of large intestine Name of Problem: Diverticulitis of large intestine ; Onset Date: 10/28/2010 ; Recorder: ALBANIA VARMA RN, CNP; Confirmation: Confirmed ; Classification: Medical ; Code: 1231 ; Last Updated: 10/28/2010 16:30 [employer] ; Life Cycle Status: Active ; Responsible [...] 12:11 - PATTI ALMENDAREZ LPN date unknown 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 Name of Problem: 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 ; Recorder: ALBANIA VARMA RN, CNP; Confirmation: Confirmed ; Classification: Medical ; Code: 1231 ; Contributor System: ScholrlyChart ; Last Updated: 11/04/2010 9:49 [employer] ; Life Cycle Date: 11/04/2010 ; Life Cycle Status: Active ; Responsible Provider: ALBANIA VARMA RN, CHEMICAL PROCESS ENGINEER; Vocabulary: ICD-9-CM ; Comments: 12/31/2010 12:11 - FRANK ALMENDAREZ LPN date unknown Osteopenia Name of Problem: Osteopenia ; Onset Date: 02/26/1987 ; Recorder: PATTI ALMENDAREZ LPN; Confirmation: Confirmed ; Classification: Nursing ; Code: 1231 ; Contributor System: ScholrlyChart ; Last Updated: 10/25/2010 20:19 [employer] ; Life Cycle Date: 10/25/2010 ; Life Cycle Status: Active ; Responsible Provider: PATTI ALMENDAREZ LPN; Vocabulary: ICD-9-CM Diagnoses(Active) Eye pain Date: 01/05/2012 ; Diagnosis Type: Reason For Visit ; Confirmation: Complaint of ; ClinicalDx: Eye pain ; Classification: Medical ; Clinical Service: Non-Specified ; Code: PNED ; Probability:0 ; Diagnosis Code: [id number] Triage Chief Complaint Description : patient having eye pain after placing drops in her eye. Patient had animplant to help with her glaucoma Information Given By : Patient Accompanied By : Significant other Mode of Arrival ED : Private vehicle Track : Medical Languages : [place] Vital Signs Assessed : Yes SUSI ALVAREZ 01/05/2012 18:35 CDT Vital Signs Peripheral Pulse Rate : 85/min Systolic Blood Pressure : 142mmHg (HI) Diastolic Blood Pressure : 84mmHg NIBP Mean : 103mmHg SpO2 : 97% Oxygen Therapy : Room air SUSI ALVAREZ 01/05/2012 18:35 CDT Pain Assessment Pain Symptoms : Yes SUSI ALVAREZ 01/05/2012 18:35 CDT ED Physician Notification Time ED Physician Notification Time : 01/05/2012 18:38 CDT SUSI ALVAREZ 01/05/2012 18:35 CDT CAMI CAMI Level 1 : No CAMI Level 2 : Yes SUSI ALVAREZ 01/05/2012 18:35 CDT DCP GENERIC CODE Tracking Group : [facility] ED SUSI ALVAREZ 01/05/2012 18:35 CDT Allergy Allergies (Active) Glutens Estimated Onset Date: Unspecified ; Created By: PATTI ALMENDAREZ LPN; Reaction Status: Active; Category: Drug ; Substance: Glutens ; Type: Allergy ; Updated By: PATTI ALMENDAREZ LPN; Reviewed Date: 12/18/2011 7:54 CDT Nuts Estimated Onset Date: Unspecified ; Created By: PATTI ALMENDAREZ LPN; Reaction Status: Active ; Category: Food ; Substance: Nuts ; Type: Allergy ; Updated By: PATTI ALMENDAREZ LPN; Reviewed Date: 12/18/2011 7:54 CDT ID Screen Drug Resistant Organism : No ALVAREZ SUSI 01/05/2012 18:35 CDT Immunizations Last Tetanus : > 5 years Pneumovac : Last 5 years Influenza : This year SUSI ALVAREZ 01/05/2012 18:35 CDT Respiratory Airway : Patent Respirations : Unlabored Respiratory Pattern : Regular Respiratory Detailed Assessment : Yes SUSI LAVAREZ 01/05/2012 18:35 CDT Resp Detailed Breath Sounds Assessment Grid BUL : Clear BLL : Clear ALVAREZTANIKA01/05/2012 18:35 CDT Cardiovascular Heart Rhythm : Regular Skin Color : Normal for ethnicity Skin Description : Dry Skin Temperature : Warm ALVAREZTANIKA01/05/2012 18:35 CDT Neurological Level of Consciousness : Alert Orientation : Oriented x 3 Characteristics of Speech : Appropriate for age ALVAREZSUSI 01/05/2012 18:35 CDT ED Psychosocial Affect/Behavior : Calm, Cooperative Domestic Abuse Concerns : None SUSI ALVAREZ 01/05/2012 18:35 CDT Gastrointestinal Nutrition ED : Adequate TANIKA ALVAREZ01/05/2012 18:35 CDT Musculoskeletal Fall Prevention Education Provided : SUSI ALONZO 01/05/2012 18:35 CDT Social Habits Tobacco Use/Currently Using : No Exposure to Tobacco Smoke : Care provider denies smoking in home Smoking Status : Never smoker SUSI ALVAREZ 01/05/2012 18:35 CDT Alcohol Use Grid Alcohol Use : No SUSI ALVAREZ 01/05/2012 18:35 CDT Recreational Drug Use Grid Drug Use : None SUSI ALVAREZ 01/05/2012 18:35 CDT [facility] Document Id: [id number]!66 documented in this encounter ED Notes Conversion, Historical Provider Ser - 01/05/2012 6:53 PM CDT ED Disposition Summary ED Disposition Summary Entered On: 01/05/2012 18:53 CDT Performed On: 01/05/2012 18:53 CDT by SUSI ALVAREZ ED Disposition Summary Printed Discharge Instructions Given to Patient : Yes Patient Status at Discharge from ED : Unchanged SUSI ALVAREZ - 01/05/2012 18:53 CDT Source: [facility] Document Id: [id number] CDT!4 Tammy Aceves Jr., M.D. - 01/05/2012 6:32 PM CDT Eye irritation Patient: KATHRYN LEON Age: 76 years Sex: Female : 1935 Author: TAMMY ACEVES MD Attachments: None Associated Diagnosis: Eye pain Basic Information History source: Patient. Arrival mode: Private vehicle. History limitation: None. Additional information:. History of Present Illness The patient presents with eye pain,R eye is red and tearing, had glaucoma implant surgery two weeks ago. Now thinks she has a foreign body in the eye. No headache. Hurts alot when she moves the eye. Nonausea. Has been using prednisolone and gatifloxacin. and Starting getting much more irritated at 4 pm today.. Review of Systems Eye symptoms: Pain. Health Status Allergies: . Allergic Reactions (All) Severity not Documented Glutens- No reactions were documented. Nuts- No reactions were documented. Medications: . Prescriptions and Home Medications dorzolamide-timolol ophthalmic (Cosopt ophthalmic solution), 1 drop(s), 2xDay calcium carbonate (calcium (as carbonate) 600 mg oral tablet), 2 tab(s), PO, 2xDay, 180 tab(s) multivitamin (Multiple Vitamins oral tablet), 1 tab(s), PO, Daily, 30 tab(s) cyanocobalamin (Vitamin B-12), 1,000 mcg, PO, Daily aspirin (aspirin 81 mg oral tablet), 1 tab(s), PO, Every Other Day, 30 tab(s) ferrous gluconate, PO, 2xDay brimonidine ophthalmic (Alphagan P), one drop, Eye(Right), 3xDay cycloSPORINE ophthalmic (Restasis), one drop, Eyes(Both), q12hr fexofenadine-pseudoephedrine (Rochelle-D 12 Hour oral tablet, extended release), 1 tab(s), PO, 2xDay,180 tab(s) fluticasone nasal (Flonase 0.05 mg/inh nasal spray), 2 spray(s), Nostrils(Both), Daily, 3 each gabapentin (gabapentin 300 mg oral capsule), 1 cap(s) in the morning and 3 cap(s) at bedtime, PO, AsDirected, [place] [id number], 360 cap(s) omeprazole (omeprazole 40 mg oral delayed release capsule), 40 mg, 1 cap(s), PO, Daily, 90 cap(s) travoprost ophthalmic (travoprost 0.004% ophthalmic solution), 1 drop(s), Eye(Right), Daily PM, 5 mL gatifloxacin ophthalmic (gatifloxacin 0.5% ophthalmic solution), 1 drop(s), Eyes(Both), 2xDay prednisoLONE ophthalmic (Prednisolone Acetate 1%), 1 drop(s), Eye(Right), q2hr Past Medical/ Family/ Social History Medical history: Medical history. Resolved Glaucoma NOS (365.9): Resolved. Surgical history: Surgical history. Mammogram ([id number]) in 2011 at 77 Years. Diagnostic colonoscopy ([id number]) in 2010 at 76 Years. Comments: 03/25/2011 08:49 - SAGRARIO NOLAND MD Sigmoid diverticulosis--not inflamed. Mammogram ([id number]) in 2009 at 75 Years. Mammogram ([id number]) in 2009 at 75 Years. Laminectomy approach to lumbar spine (761448044) in 2008 at 74 Years. Colonoscopy ([id number]) in 2008 at 73 Years. Extracapsular cataract removal with insertion of intraocular lens prosthesis (1 stage procedure), manual or mechanical technique (eg, irrigation and aspiration or phacoemulsification) (14696) in 2006 at 72 Years. Comments: 10/25/2010 20:26 - ERICKSONPATTI Alek RELIABILITY ENGINEER left Repair of cystocele ([id number]) in 1994 at 60 Years. Reduction mammaplasty () in 1981 at 47 Years. Hysterectomy ([id number]) in 1966 at 31 Years. Comments: 03/25/2011 08:51 - SAGRARIO NOLAND MD Vaginal Hemorrhoidectomy, internal and external, single column/group; (74636) in 1959 at 24 Years. Family history: Family history. No family history items have been selected or recorded. Problem list: . 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 General: Alert. no acute distress. Skin: Warm. dry. intact. Head: Normocephalic. atraumatic. Eye: Pupils are equal, round and reactive to light. extraocular movements are intact. right eye withconjunctival irritation, suture material noted.. Cardiovascular: Regular rate and rhythm Respiratory: Lungs are clear to auscultation Gastrointestinal: Soft. Nontender. Neurological: Alert and oriented to person, place, time, and situation 20/20 vision noted bilaterally. Medical Decision Making Documents reviewed:Emergency department nurses' notes. Impression and Plan Diagnosis Eye pain (Discharge, Emergency medicine, Medical) Discussed with retail parts professional eye physician who advised follow up with eye md tomorrow. No need for sooner evaluation unless pain worsens, nausea or headache ensues or vision changes. Discharge plan Condition: Stable. Dispositioned: To home. Counseled: Patient, Regarding diagnosis, Regarding diagnostic results, Regarding treatment plan, Regarding prescription, Patient indicated understanding of instructions. Continue current eye drops for now. Electronically Signed By: TAMMY ACEVES MD On: 01/05/2012 07:06 PM Source: [facility] POWERCHART Document Id: [id number] Conversion, Historical Provider Ser - 01/05/2012 6:14 PM CDT ED Triage Assessment ED Triage Assessment Entered On: 01/05/2012 18:17 CDT Performed On: 01/05/2012 18:14 CDT by SUSI ALVAREZ Reason For Visit Problems(Active) Allergic rhinitis, unspecified Name of Problem: Allergic rhinitis, unspecified ; Onset Date: 1952 ; Recorder: PATTI ALMENDAREZ LPN; Confirmation: Confirmed ; Classification: Nursing ; Code: 1231 ; Contributor System: Factorli ; Last Updated: 01/21/2011 10:04 CDT ; Life Cycle Date: 10/25/2010 ; Life Cycle Status: Active ; Responsible Provider: PATTI ALMENDAREZ LPN; Vocabulary: ICD-9-CM ; Comments: 12/31/2010 12:10 - PATTI ALMENDAREZ LPN date unk Arthritis, rheumatoid* Name of Problem: Arthritis, rheumatoid* ; Onset Date: 02/27/1980 ; Recorder: PATTI ALMENDAREZ LPN; Confirmation: Confirmed ; Classification: Nursing ; Code: 1231 ; Contributor System: ScholrlyChart ; Last Updated: 10/25/2010 20:18 [employer] ; Life Cycle Date: 10/25/2010 ; Life Cycle Status: Active ; Responsible Provider: PATTI ALMENDAREZ LPN; Vocabulary: ICD-9-CM Bursitis Hip/Trochanertic Name of Problem: Bursitis Hip/Trochanertic ; Onset Date: 10/20/2011 ; Recorder: ALBANIA VARMA RN, CNP; Confirmation: Confirmed ; Classification: Medical ; Code: 1231 ; Last Updated: 10/20/2011 9:54 [employer] ; Life Cycle Status: Active ; Responsible Provider: ALBANIA VARMA RN, CNP; Vocabulary: ICD-9-CM Cataract NOS Name of Problem: [...] PATTI ALMENDAREZ LPN date unknown Celiac Disease Name of Problem: Celiac Disease ; Onset Date: 02/26/2007 ; Recorder: PATTI ALMENDAREZ LPN; Confirmation: Confirmed ; Classification: Nursing ; Code: 1231 ; Contributor System: PowerChart ; Last Updated: 10/25/2010 20:20 [employer] ; Life Cycle Date: 10/25/2010 ; Life Cycle Status: Active ; Responsible Provider: PATTI ALMENDAREZ LPN; Vocabulary: ICD-9-CM Diverticulitis of large intestine Name of Problem: Diverticulitis of large intestine ; Onset Date: 10/28/2010 ; Recorder: ALBANIA VARMA RN, CNP; Confirmation: Confirmed ; Classification: Medical ; Code: 1231 ; Last Updated: 10/28/2010 16:30 [employer] ; Life Cycle Status: Active ; Responsible [...] 12:11 - PATTI ALMENDAREZ LPN date unknown 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 Name of Problem: 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 ; Recorder: ALBANIA VAMRA RN, CNP; Confirmation: Confirmed ; Classification: Medical ; Code: 1231 ; Contributor System: PowerChart ; Last Updated: 11/04/2010 9:49 [employer] ; Life Cycle Date: 11/04/2010 ; Life Cycle Status: Active ; Responsible Provider: ALBANIA VARMA RN, CHEMICAL PROCESS ENGINEER; Vocabulary: ICD-9-CM ; Comments: 12/31/2010 12:11 - FRANK ALMENDAREZ LPN date unknown Osteopenia Name of Problem: Osteopenia ; Onset Date: 02/26/1987 ; Recorder: PATTI ALMENDAREZ LPN; Confirmation: Confirmed ; Classification: Nursing ; Code: 1231 ; Contributor System: Factorli ; Last Updated: 10/25/2010 20:19 [employer] ; Life Cycle Date: 10/25/2010 ; Life Cycle Status: Active ; Responsible Provider: PATTI ALMENDAREZ LPN; Vocabulary: ICD-9-CM Diagnoses(Active) Eye pain Date: 01/05/2012 ; Diagnosis Type: Reason For Visit ; Confirmation: Complaint of ; ClinicalDx: Eye pain ; Classification: Medical ; Clinical Service: Non-Specified ; Code: PNED ; Probability:0 ; Diagnosis Code: [id number] Triage Chief Complaint Description : eye pain had eye surgery two weeks ago Information Given By : Patient Accompanied By : Significant other Mode of Arrival ED : Private vehicle Track : Medical Languages : [place] SUSI ALVAREZ - 01/05/2012 18:14 CDT Pain Assessment Pain Symptoms : Yes Pain Medication Requested : SUSI Ricardo 01/05/2012 18:14 CDT CAMI CAMI Level 1 : No CAMI Level 2 : No CAMI Level 3 : One SUSI ALVAREZ - 01/05/2012 18:14 CDT DCP GENERIC CODE Tracking Group : [facility] SUSI ALVAREZ 01/05/2012 18:14 CDT Allergy Allergies (Active) Glutens Estimated Onset Date: Unspecified ; Created By: PATTI ALMENDAREZ LPN; Reaction Status: Active; Category: Drug ; Substance: Glutens ; Type: Allergy ; Updated By: PATTI ALMENDAREZ LPN; Reviewed Date: 12/18/2011 7:54 CDT Nuts Estimated Onset Date: Unspecified ; Created By: PATTI ALMENDAREZ LPN; Reaction Status: Active ; Category: Food ; Substance: Nuts ; Type: Allergy ; Updated By: PATTI ALMENDAREZ LPN; Reviewed Date: 12/18/2011 7:54 CDT ID Screen Drug Resistant Organism : TANIKA RicardoA - 01/05/2012 18:14 CDT Immunizations Last Tetanus : > 5 years Pneumovac : Last 5 years Influenza : This year TANIKA ALVAREZA - 01/05/2012 18:14 CDT Source: [employer] Document Id: [id number] CDT!23 documented in this encounter Miscellaneous Notes Miscellaneous - Conversion, Historical Provider Ser - 01/05/2012 6:53 PM CDT Valuables/Belongings Valuables/Belongings Entered On: 01/05/2012 18:53 CDT Performed On: 01/05/2012 18:53 CDT by SUSI ALVAREZ Valuables/Belongingdaria Home Medication Disposition : None brought in with patient ALVAREZTANIKAA - 01/05/2012 18:53 CDT Source: [employer] Document Id: [id number] CDT!3 Miscellaneous - Conversion, Historical Provider Ser - 01/05/2012 6:07 PM CDT Facility Charge Ticket Facility Charge Ticket Entered On: 01/05/2012 18:53 CDT Performed On: 01/05/2012 18:07 CDT by SUSI ALVAREZ Facility Charge Lynx Disposition : Discharge Lynx Total Points with Diagnosis Control : 5 Lynx Visit Level : 32054 Level 3 WESLEY PONCE - 01/12/2012 13:28 CDT TVL Level for Facility Charge Ticket : Level 3 Mode of Arrival ED : Private vehicle Lynx Mode of Arrival Interpreted : Standard Lynx Process Management : None Lynx Order Management : None 30 Minutes Critical Care : No Lynx Nursing Assessment : Triage and 1-2 nursing assessments SUSI ALVAREZ - 01/05/2012 18:53 CDT Source: [employer] Document Id: [id number] CDT!5 documented in this encounter Plan of Treatment Not on filedocumented as of this encounter Visit Diagnoses Not on filedocumented in this encounter
--- OUTSIDE RECORDS SUMMARY | 2022-05-06 13:13 | XMS_ITS | Encounter Summary ---
:1935 Author Organization [facility] Address [address] [place] [address] Care Team Providers Name Role Phone Unavailable Primary Care Provider Unavailable Encounter Details Date Type Department Care Team Description 07/28/2012 Hospital Encounter HX [facility] ME Mary Cortez, CYRIL, C.N.P., D. N.P. [address] [place] [phone] (Wo rk) Social History Tobacco Use [...]
--- OUTSIDE RECORDS SUMMARY | 2022-05-06 13:13 | XMS_ITS | Encounter Summary ---
:1935 Author Organization [facility] Address [address] [place] [address] Care Team Providers Name Role Phone Unavailable Primary Care Provider Unavailable Encounter Details Date Type Department Care Team Description 11/02/2012 Hospital Encounter HX [facility] ME Mary Varma, CYRIL, C.N.P., D. N.P. [address] [place] [phone] (Wo rk) Social History Tobacco Use Types Packs/Day Years Used Date Smoking Tobacco: Never Assessed Sex Assigned at Date Recorded Not on file documented as of this encounter Last Filed Vital Signs Vital Sign Reading Time Taken Comments Blood Pressure 114/68 11/02/2012 11:15 AM MODELING AGENCY MANAGER Pulse 80 11/02/2012 11:15 AM MODELING AGENCY MANAGER Temperature - - Respiratory Rate 16 11/02/2012 11:15 AM MODELING AGENCY MANAGER Oxygen Saturation - - Inhaled Oxygen Concentration - - Weight 73.3 kg (161 lb 9.6 oz) 11/02/2012 11:15 AM MODELING AGENCY MANAGER Height - - Body Mass Index 27.93 06/17/2012 10:00 AM CDT documented in this [...] Progress Notes Mary Varma APRN, C.N.P. - 11/02/2012 11:05 AM CST [id number] CHIEF COMPLAINT/REASON FOR VISIT Fall. HISTORY OF PRESENT ILLNESS Kathryn is a very pleasant 77-year-old female who has a history of having back surgery who comes in today after she fell on Thursday. She states that she had initial pain in her right wrist and elbow that have now completely resolved, a little bit in her right buttock that radiated down her leg that has now resolved, and continues to have a little discomfort in her left buttock area. She denies any spine pain, numbness or tingling. She otherwise is doing well. She is on a regular dose of gabapentin 900. 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 She otherwise feels well. No other particular concerns. No changes in bowel or bladder habits. CURRENT MEDICATIONS Please see the EMR for details. ALLERGIES Please see the EMR. PHYSICAL EXAMINATION VITAL SIGNS: Her blood pressure is 114/68 with a pulse of 18. GENERAL: Patient appears nondistressed. HEART: Regular rate and rhythm. LUNGS: Clear to auscultation. ABDOMEN: Soft. No organomegaly. MUSCULOSKELETAL: Her spine is in alignment. She has no tenderness to palpation. Her right wrist and elbow with no discoloration. She has full range of motion and no pain to passive or active range of motion. Her lower spine with no pain to palpation. Her hips with a full range of motion and no pain onthe trochanter bursa area. She does have a little bit of discomfort in the left upper buttock area where she does have some bruising that is noted. Nothing noted abnormal in the right buttock area. IMPRESSION/REPORT/PLAN Back pain status post fall. PLAN: Discussed with patient that her symptoms are improving. We will continue to monitor and treat symptomatically. She can use some heat on that area of her left buttock causing her discomfort. She will report if no improvement or any worsening symptoms. Patient Education Ready to learn No apparent learning barriers were identified Learning preferences include listening Explained diagnosis and treatment plan Patient/Child/Caregiver expressed understanding of the content Aakash Quiroga/dianna DOCID: [id number] Electronically Signed By: MARY VARMA RN, IVANA On: 11/03/2012 12:22 PM Source: [facility] MHSDOLBEYNONRADSYS Document Id: [id number] LING AGENCY MANAGER documented in this encounter Miscellaneous Notes Miscellaneous - Mary Varma APRN, C.NTerri. - 11/02/2012 12:01 PM CST Ambulatory Patient Summary [address] [address] Visit Information Name: KATHRYN LEON [facility] Number: [id number] Current Date: 11/02/2012 12:01:04 Physicians Attending Provider: MARY VARMA RN, MANAGER MARKET INTELLIGENCE Primary Care Provider: MARY VARMA RN, MANAGER MARKET INTELLIGENCE Your Medications Here is a list of your medications. It is important to take your medications as directed. Use a pillbox or chart to help remind you to take your medications. Please let your doctor or nurse know if you have problems taking your medications. Medication/Strength Dose Route Frequency Indications/Special Instructions/Comments gabapentin (gabapentin 300 mg oral tablet) 900 mg Oral once a day (at bedtime) fexofenadine-pseudoephedrine (Rochelle-D 12 Hour 60 mg-120 mg oral tablet, extended release) 1 tab(s)Oral two times a day omeprazole (omeprazole 40 mg oral delayed release capsule) 40 mg Oral once a day simethicone (Gas-X 125 mg oral tablet, chewable) 125 mg Oral estradiol topical (Vagifem 10 mcg vaginal tablet) 10 mcg Vaginal 2 times a week calcium citrate (Citracal) once a day fluticasone nasal (Flonase 0.05 mg/inh nasal spray) 2 spray(s) Nostrils(Both) once a day cycloSPORINE ophthalmic (Restasis) one [...] No Appointments found Your Goals/Additional instructions: Source: [facility] POWERCHART Document Id: [id number] LING AGENCY MANAGER Miscellaneous - Mary Varma APRN, C.N.P. - 11/02/2012 12:01 PM CST Ambulatory Depart Summary [address] [address] Visit Information Name: KATHRYN LEON [facility] Number: [id number] Visit Date: 11/02/2012 12:01:02 Attending Provider: MARY VARMA RN, MANAGER MARKET INTELLIGENCE Primary Care Provider: MARY VARMA RN, MANAGER MARKET INTELLIGENCE KATHRYN LEON has been given the following list of medications: Your Medications It is important to take your medications as directed. Use a pill box or chart to help remind you to take your medications. Please let your doctor or nurse know if you have problems taking your medications. Medication/Strength Dose Route Frequency Indications/Special Instructions/Comments gabapentin (gabapentin 300 mg oral tablet) 900 mg Oral once a day (at bedtime) fexofenadine-pseudoephedrine (Rochelle-D 12 Hour 60 mg-120 mg oral tablet, extended release) 1 tab(s)Oral two times a day omeprazole (omeprazole 40 mg oral delayed release capsule) 40 mg Oral once a day simethicone (Gas-X 125 mg oral tablet, chewable) 125 mg Oral estradiol topical (Vagifem 10 mcg vaginal tablet) 10 mcg Vaginal 2 times a week calcium citrate (Citracal) once a day fluticasone nasal (Flonase 0.05 mg/inh nasal spray) 2 spray(s) Nostrils(Both) once a day cycloSPORINE ophthalmic (Restasis) one [...] your provider for clarification. Additional Information: Source: [facility] POWERCHART Document Id: [id number] LING AGENCY MANAGER Miscellaneous - Sujatha Batista L.PDannN. 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 Intake/History Entered On: 11/02/2012 11:20 MODELING AGENCY MANAGER Performed On: 11/02/2012 11:15 MODELING AGENCY MANAGER by SUJATHA BATISTA LPN Intake Chief Complaint : Fell thursday back pain but is getting better has been cutting back on gabapentin needs a refill Temperature Core : 36.3C(Converted to: 97.3DegF) (LOW) Peripheral Pulse Rate : 80/min Respiratory Rate : 16/min Heart Rhythm : Regular Systolic Blood Pressure : 114mmHg Diastolic Blood Pressure : 68mmHg NIBP Mean : 83mmHg BP Location : Right upper extremity Blood Pressure Cuff Size : Large Actual Weight : 73.3kg(Converted to: 161lb 10oz) Weight Source : Standing scale Dosing Weight Clinic : 73.30kg SUJATHA BATISTA LPN - 11/02/2012 11:15 MODELING AGENCY MANAGER General Info Information Given By : Patient Preferred Communication Mode : Verbal Languages : Portuguese SUJATHA BATISTA LPN 11/02/2012 11:15 MODELING AGENCY MANAGER Subjective Pain Symptoms : Yes SUJATHA BATISTA LPN 11/02/2012 11:15 MODELING AGENCY MANAGER Pain Pain Assessment Grid Pain 1 Location : Lower back Laterality : Right Intensity : 2 SUJATHA BATISTA LPN 11/02/2012 11:15 MODELING AGENCY MANAGER Dependent Habits Tobacco Use/Currently Using : No Exposure to Tobacco Smoke : Care provider denies smoking in home Smoking Status : Never smoker SUJATHA BATISTA LPN 11/02/2012 11:15 MODELING AGENCY MANAGER Tobacco Use Grid Last Use : never SUJATHA BATISTA LPN 11/02/2012 11:15 MODELING AGENCY MANAGER Alcohol Use : Yes SUJATHA BATISTA LPN 11/02/2012 11:15 MODELING AGENCY MANAGER Caffeine Use Grid Caffeine Use : Current Type : Coffee Frequency : Weekly SUJATHA BAITSTA LPN 11/02/2012 11:15 MODELING AGENCY MANAGER Recreational Drug Use Grid Drug Use : None SUJATHA BATISTA LPN 11/02/2012 11:15 MODELING AGENCY MANAGER Allergy Allergies (Active) Glutens Estimated Onset Date: Unspecified ; Created By: PATTI ALMENDAREZ LPN; Reaction Status: Active; Category: Drug ; Substance: Glutens ; Type: Allergy ; Updated By: PATTI ALMENDAREZ LPN; Reviewed Date: 08/30/2012 9:39 MODELING AGENCY MANAGER Nuts Estimated Onset Date: Unspecified ; Created By: PATTI ALMENDAREZ LPN; Reaction Status: Active ; Category: Food ; Substance: Nuts ; Type: Allergy ; Updated By: PATTI ALMENDAREZ LPN; Reviewed Date: 08/30/2012 9:39 MODELING AGENCY MANAGER Source: [facility] [employer] Document Id: [id number] LING AGENCY MANAGER documented in this encounter Plan of Treatment Not on filedocumented as of this encounter Visit Diagnoses Not on filedocumented in this encounter
--- OUTSIDE RECORDS SUMMARY | 2022-05-06 13:13 | XMS_ITS | Encounter Summary ---
:1935 Author Organization [facility] Address [address] [place] [address] Care Team Providers Name Role Phone Unavailable Primary Care Provider Unavailable Encounter Details Date Type Department Care Team Description 09/25/[address] [facility] ME Mary Cortez, CYRIL, C.N.P., D. N.P. [address] [place] [phone] (Wo rk) Social History Tobacco Use [...]
--- OUTSIDE RECORDS SUMMARY | 2022-05-06 13:13 | XMS_ITS | Encounter Summary ---
:1935 Author Organization [facility] Address [address] [place] [address] Care Team Providers Name Role Phone Unavailable Primary Care Provider Unavailable Encounter Details Date Type Department Care Team Description 10/20/2011 Hospital Encounter HX [facility] ME [place] Varma APRN, C.N.P., D. N.P. [address] [place] [phone] (Wo rk) Social History Tobacco Use Types Packs/Day Years Used Date Smoking Tobacco: Never Assessed Sex Assigned at Date Recorded Not on file documented as of this encounter Last Filed Vital Signs Vital Sign Reading Time Taken Comments Blood Pressure 124/70 10/20/2011 9:29 AM CLERK TYPIST Pulse 100 10/20/2011 9:29 AM CLERK TYPIST Temperature - - Respiratory Rate 18 10/20/2011 9:29 AM CLERK TYPIST Oxygen Saturation - - Inhaled Oxygen Concentration [...] Progress Notes [place] Varma APRN, C.N.P. - 10/20/2011 12:00 AM CST [id number] CHIEF COMPLAINT/REASON FOR VISIT Hip pain. HISTORY OF PRESENT ILLNESS Briana is a very pleasant 76-year-old who was seen two weeks ago for right hip pain. She was prescribed ibuprofen. She was diagnosed with bursitis. The patient has noted significant improvement but not resolution of her symptoms. She has pain with walking or when she is sleeping or lying in her bed at night. She denies any pain with sitting. She states that it does seem like it is getting a little bit better. She states that it has not been a week of her treating it with ibuprofen yet. She denies any feeling of giving out, weakness in the hip, or numbness or tingling in that extremity. CURRENT MEDICATIONS Please see the EMR. ALLERGIES Please see the EMR. VITAL SIGNS Please see EMR. PHYSICAL EXAMINATION In general, the patient appears nondistressed. She has good range of motion of her right hip with full flexion and extension of 90 degrees as well as abduction. She does have pain in her right trochanter bursa as well as posteriorly in her buttock area. There is no redness or bruising noted and no warm to touch noted. IMPRESSION/REPORT/PLAN Right hip bursitis. PLAN It does seem to be improving with the current regimen. We will have her continue that for at least the next three to four days, then wean her down off the ibuprofen. If her symptoms continue, the patient could consider a trochanter bursa injection. The patient is agreeable to that. She can also add using ice to the area. She will report if no improvement or any worsening symptoms. Patient Education Ready to learn No apparent learning barriers were identified Learning preferences include listening Explained diagnosis and treatment plan Patient/Child/Caregiver expressed understanding of the content [place] Varma N.P. /angy Electronically Signed By: [place] VARMA RN, INTERVENTION SPECIALIST On: 10/27/2011 07:08 AM Source: [facility] GRZEGORZSDOLBEYNNIKKO Document Id: [id number] K TYPIST documented in this encounter Miscellaneous Notes Miscellaneous - [place] Varma, RESEARCH ASSOCIATE POLICY, C.N.P. - 10/20/2011 10:03 AM CST Ambulatory Patient Summary [facility] [address] [facility] [place] [address] Visit Information Name: BRIANA LEON Current Date: 10/20/2011 10:03:31 Primary Care Provider: [place] VARMA RN, INTERVENTION SPECIALIST Your Medications Here is a list of [...] cap(s) at bedtime Oral as directed ID [id number] fluticasone nasal (Flonase 0.05 mg/inh nasal spray) [...] No Appointments found Your Goals/Additional instructions: Source: [facility] POWERCHART Document Id: [id number] K TYPIST Miscellaneous - [place] Varma APRN, C.N.P. - 10/20/2011 10:03 AM CST Ambulatory Depart Summary [facility] [address] [facility] [place] [address] Visit Information Name: BRIANA LEON Current Date: 10/20/2011 10:03:29 Attending Provider: ALBANIA VARMA RN, INTERVENTION SPECIALIST Primary Care Provider: [place] VARMA RN, INTERVENTION SPECIALIST BRIANA LEON has been given the following [...] cap(s) at bedtime Oral as directed ID [id number] fluticasone nasal (Flonase 0.05 mg/inh nasal spray) [...] to the patient and/or family, guardian/caregiver. Source: [facility] POWERCHART Document Id: [id number] K TYPIST Miscellaneous - Sujatha Batista L.P.N. 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 Intake/History Entered On: 10/20/2011 9:33 CLERK TYPIST Performed On: 10/20/2011 9:29 CLERK TYPIST by SUJATHA BATISTA LPN Intake Chief Complaint : Follow up last thu appointment reports pain in right hip improved Temperature Core : 36.5C(Converted to: 97.7DegF) Peripheral Pulse Rate : 100/min Respiratory Rate : 18/min Heart Rhythm : Regular Systolic Blood Pressure : 124mmHg Diastolic Blood Pressure : 70mmHg NIBP Mean : 88mmHg BP Location : Left upper extremity Blood Pressure Cuff Size : Regular SUJATHA BATISTA LPN - 10/20/2011 9:29 CLERK TYPIST Subjective Pain Symptoms : Yes SUJATHA BATISTA LPN - 10/20/2011 9:29 CLERK TYPIST Pain Pain Assessment Grid Pain 1 Location : Hip Laterality : Right Intensity : 4 SUJATHA BATISTA LPN - 10/20/2011 9:29 CLERK TYPIST Dependent Habits Tobacco Use/Currently Using : No Exposure to Tobacco Smoke : Care provider denies smoking in home Smoking Status : Never smoker Alcohol Use : Yes SUJATHA BATISTA LPN - 10/20/2011 9:29 CLERK TYPIST Caffeine Use Grid Caffeine Use : Current Type : Coffee Frequency : Weekly SUJATHA BATISTA LPN - 10/20/2011 9:29 CLERK TYPIST Recreational Drug Use Grid Drug Use : None SUJATHA BATISTA LPN - 10/20/2011 9:29 CLERK TYPIST Allergy Allergies (Active) Glutens Estimated Onset Date: Unspecified ; Created By: PATTI ALMENDAREZ LPN; Reaction Status: Active; Category: Drug ; Substance: Glutens ; Type: Allergy ; Updated By: PATTI ALMENDAREZ LPN; Reviewed Date: 10/15/2011 12:54 CLERK TYPIST Nuts Estimated Onset Date: Unspecified ; Created By: PATTI ALMENDAREZ LPN; Reaction Status: Active ; Category: Food ; Substance: Nuts ; Type: Allergy ; Updated By: PATTI ALMENDAREZ LPN; Reviewed Date: 10/15/2011 12:54 CLERK TYPIST Source: [facility] [employer] Document Id: [id number] CLERK TYPIST!33 K TYPIST documented in this encounter Plan of Treatment Not on filedocumented as of this encounter Visit Diagnoses Not on filedocumented in this encounter
--- OUTSIDE RECORDS SUMMARY | 2022-05-06 13:13 | XMS_ITS | Encounter Summary ---
:1935 Author Organization [facility] Address [address] [place] [id number] Care Team Providers Name Role Phone Unavailable Primary Care Provider Unavailable Encounter Details Date Type Department Care Team Description 12/16/2010 Hospital Encounter HX [facility] Albania Varma APRN, C.N.P., D. N.P. [address] [place] [address] (Wo rk) Social History Tobacco [...] Progress Notes Albania Varma APRN, C.N.P. - 12/16/2010 12:00 AM CDT [id number] CHIEF COMPLAINT/REASON FOR VISIT Kathryn is a 75-year-old who has known diverticulitis of the large intestine. She is here today just for a recheck. She states that she has not been have any recent symptoms but did end up in the hospital for her diverticulitis. She just wanted to check to make sure she is doing well. She also has known celiac disease and has been taking fiber supplements on a regular basis but has noted her stools to be a bit more loose. She has no other concerns at this time. MEDICATIONS Please see EMR ALLERGIES Please see EMR. SYSTEMS REVIEW She has loose stools as noted above. She denies any chest pain, shortness of breath. She denies any lower extremity edema and denies any abdominal discomfort. Her appetite is adequate. The rest of her review of systems was reviewed with patient and noted to be negative. PAST MEDICAL-SURGICAL HISTORY Please see EMR. SOCIAL HISTORY She is a nonsmoker. FAMILY HISTORY No family history of colon cancer. VITAL SIGNS Please review EMR. PHYSICAL EXAMINATION IN GENERAL: Patient appears nondistressed. SKIN is warm and dry, well hydrated. Her HEART with regular rate and rhythm. She has normal S1-S2. There is no murmurs or gallops. Her PMI is nondisplaced. Her LUNGS are clear to auscultation. Her ABDOMEN with normoactive bowel sounds x4 quadrants. She has no tenderness to palpation. Slight tenderness with very deep palpation in the left lower quadrant. But also noted in her mid umbilicus area she has no peritoneal signs and otherwise no organomegaly or abdominal discomfort to palpation. IMPRESSION/REPORT/PLAN 1. Is diverticulosis, currently patient does not have any signs of diverticulitis and I did reassure of that. I also will ask that we try to get her some resources for fiber supplements that are gluten free in foods that she eats. The patient agrees with that plan. #1 Patient Education Ready to learn No apparent learning barriers were identified Learning preferences include listening Explained diagnosis and treatment plan Patient expressed understanding of the content Albania Varma N.P. /heather Electronically Signed By: ALBANIA VARMA RN, FIELD SERVICES ANALYST On: 12/22/2010 09:27 Source: [facility] Document Id: [id number] documented in this encounter Miscellaneous Notes Miscellaneous - Sujatha Batista L.PDannNDann - 12/18/2010 2:01 PM CDT Health Assessment Health Assessment Entered On: 12/18/2010 14:02 CDT Performed On: 12/18/2010 14:01 CDT by SUJATHA BATISTA LPN Nutrition Nutrition Risk Factors by History Adult: None SUJATHA BATISTA LPN - 12/18/2010 14:01 CDT Functional Current Daily Living Assistance: None SUJATHA BATISTA LPN - 12/18/2010 14:01 CDT Dependent Habits Tobacco Use/Currently Using: No SUJATHA BATISTA LPN - 12/18/2010 14:01 CDT Caffeine Use Grid Caffeine Use: Current Type: Coffee Frequency: Weekly SUJATHA BATITSA LPN - 12/18/2010 14:01 CDT Recreational Drug Use Grid Drug Use: None SUJATHA BATISTA LPN - 12/18/2010 14:01 CDT Psychosocial Domestic Concerns: None SUJATHA BATISTA LPN - 12/18/2010 14:01 CDT Advance Directive Advanced Directives: No SUJATHA BATISTA LPN - 12/18/2010 14:01 CDT Educ Needs Learning Style Preference Adult Grid Patient: Demonstration Family: Alphonso SUJATHA BATISTA LPN - 12/18/2010 14:01 CDT Source: [facility] Document Id: [id number] CDT!23 Miscellaneous - Sujatha Batista L.PDannNDann - 12/18/2010 1:55 PM CDT 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/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/History Entered On: 12/18/2010 14:01 CDT Performed On: 12/18/2010 13:55 CDT by SUJATHA BATISTA LPN Intake Chief Complaint: hx of diverticulitis follow up questions like to go over feet are starting to swell since it is getting warm out Temperature Core: 36.4C(Converted to: 97.5DegF) (LOW) Peripheral Pulse Rate: 72/min Respiratory Rate: 18/min Systolic Blood Pressure: 110mmHg Diastolic Blood Pressure: 60mmHg NIBP Mean: 77mmHg BP Location: Right upper extremity Heart Rhythm: Regular Actual Weight: 75.700kg(Converted to: 166lb 14oz) Weight Source: Standing scale Dosing Weight Clinic: 75.70kg SUJATHA BATISTA LPN - 12/18/2010 13:55 CDT Subjective Pain Symptoms: No SUJATHA BATISTA LPN - 12/18/2010 13:55 CDT Dependent Habits Tobacco Use/Currently Using: No Alcohol Use: Yes SUJATHA BATISTA LPN - 12/18/2010 13:55 CDT Caffeine Use Grid Caffeine Use: Current Type: Coffee Frequency: Weekly Comments (Comment: deccrow [SUJATHA BATISTA LPN - 12/18/2010 13:55 CDT] ) SUJATHA BATISTA LPN - 12/18/2010 13:55 CDT Recreational Drug Use Grid Drug Use: None SUJATHA BATISTA LPN - 12/18/2010 13:55 CDT Allergies Allergies (Active) Glutens Estimated Onset Date: Unspecified ; Created By: PATTI ALMENDAREZ LPN; Reaction Status: Active; Category: Drug ; Substance: Glutens ; Type: Allergy ; Updated By: PATTI ALMENDAREZ LPN; Reviewed Date: 11/04/2010 9:42 MUTUAL FUND MANAGER Nuts Estimated Onset Date: Unspecified ; Created By: PATTI ALMENDAREZ LPN; Reaction Status: Active ; Category: Food ; Substance: Nuts ; Type: Allergy ; Updated By: PATTI ALMENDAREZ LPN; Reviewed Date: 11/04/2010 9:42 MUTUAL FUND MANAGER Source: [facility] POWER[facility]ART Document Id: [id number] CDT!27 documented in this encounter Plan of Treatment Not on filedocumented as of this encounter Visit Diagnoses Not on filedocumented in this encounter
--- OUTSIDE RECORDS SUMMARY | 2022-05-06 13:13 | XMS_ITS | Encounter Summary ---
:[address] [facility] Address [address] [place] [address] Care Team Providers Name Role Phone Unavailable Primary Care Provider Unavailable Encounter Details Date Type Department Care Team Description 01/28/2012 - Hospital Encounter HX [facility] [place] Varma, 04/19/2012 [employer] NAM, C.N.P., D.N.P. [address] [place] [id number] Social History Tobacco Use Types Packs/Day Years Used Date Smoking Tobacco: Never Assessed Sex Assigned at Date Recorded Not on file documented as of this encounter Discharge Summaries Bianca Villalobos P.T. - 04/19/2012 12:00 AM CDT [id number] DISCHARGE SUMMARY Patient was not seen on this date. Patient was evaluated and treated times one treatment session forvertigo. Her plan of care included TAXONOMIST maneuvers and patient education in home instruction. Patient achieved goals and was discharged due to symptom resolution. Bianca Villalobos D.P.T./tommy Electronically Signed By: BIANCA VILLALOBOS On: 06/21/2012 07:51 AM Source: [facility] Document Id: [id number] Bianca Villalobos P.T. - 04/09/2012 12:00 AM CDT [id number] DISCHARGE SUMMARY Treatment was not performed on this date. Patient was evaluated and treated under the referral of [place] Varma for hip pain. Patient was seen over the course of six weeks. Her plan of care included patient education, home exercise program, stretching, strengthening and core stabilization exercises. Patient progressed towards all goals was discharged into an independent home exercise program. Patient discharged at this time. Bianca Villalobos D.P.T./tommy Electronically Signed By: BIANCA VILLALOBOS On: 06/21/2012 07:51 AM Source: [facility] Document Id: [id number] documented in this encounter Medications at Time [...] documented as of this encounter Progress Notes Naya Pagan, Angelia. - 07/30/2012 3:34 PM CST OT Daily Note OT Daily Note Entered On: 07/30/2012 15:52 TAPPER HELPER Performed On: 07/30/2012 15:34 TAPPER HELPER by NAYA PAGAN Goals Review OT Goals Reviewed : Goals reviewed and unchanged NAYA PAGAN - 07/30/2012 15:34 TAPPER HELPER General Info Reason for Referral to OT : General weakness Pain Symptoms : No Weight Bearing : Toe-Touch weight bearing General Mode of Communication : Verbal NAYA PAGAN - 07/30/2012 15:34 TAPPER HELPER Treatment OT ADL Training Provided : Yes OT Therapeutic Activities/Exercise : Yes OT Total Treatment Time : 40minute(s) OT Treatment Response : Patient was seen l/e dressing with sock aid; she is now independent with it's use for donning socks. She prefers the wide sock aid U/E exercises included 30min of 2 and 3 lb free weight use for shoulder flexion/extension; external and internal rotation; biceps curls;supination/p ronation x20 x2 sets. Excellent functional tolerance for 40 min of activity NAYA PAGAN - 07/30/2012 15:34 TAPPER HELPER ADL Basic Activities of Daily Living Grid Lower Extremity Dressing Assist Level : Modified independent Device/Equipment : Sock aid NAYA PAGAN - 07/30/2012 15:34 TAPPER HELPER Additional ADL Comments : Patient was able to use the sock aid with set up today; no cues necessary just placement and review NAYA PAGAN - 07/30/2012 15:34 TAPPER HELPER Ther Activities/Exercise OT Therapeutic Exercises : General strengthening exercises OT Exercises Performed : Left upper extremity, Right upper extremity NAYA PAGAN - 07/30/2012 15:34 TAPPER HELPER OT Charge OT Number of Patient Visits : 1 Charges - OT : Charges Complete OT Self Care/Home Management Minutes : 10minute(s) OT Self Care/Home Management Charges : 1units OT Therapeutic Exercise Minutes : 30minute(s) OT Therapeutic Exercise Charges : 2units NAYA PAGAN - 07/30/2012 15:34 TAPPER HELPER [facility] Document Id: [id number] ER HELPER Bianca Villalobos P.T. - 03/10/2012 12:00 AM CDT [id number] PATIENT'S CHIEF COMPLAINT She has no new complaints. Overall she feels she is improving, things are doing quite well for her actually. IMPRESSION/REPORT/PLAN We did perform passive range of motion to the hips as well as stretching of single knee to chest, piriformis and hamstring stretches bilaterally. Increased tightness noted today on the right lower extremity. We also performed short arc quads bilaterally. We performed TA sets with lower extremity straight leg raises which was added to her home exercise program. We also performed quad sets all at three times 10 repetitions. She will continue with her current home exercise program with the addition of the straight leg raises progressing the TA sets and progressing standing hip abduction, standing hip extension, progress this to an orange Thera-Band at three times 10 repetitions every other day. Patient verbalized understand. PATIENT EDU #1 Patient Education Ready to learn No apparent learning barriers were identified Learning preferences include listening Explained diagnosis and treatment plan Patient/Child/Caregiver expressed understanding of the content. Total treatment time today was 30 minutes. Plan to is have patient work on independent home exercise program as she is going to be out of town for the next couple weeks. She will contact us if symptoms do not continue to improve. Bianca Villalobos D.P.T. /tommy Electronically Signed By: BIANCA VILLALOBOS On: 03/24/2012 02:52 PM [facility] Document Id: [id number] Bianca Villalobos P.T. - 03/05/2012 12:00 AM CDT [id number] PATIENT'S CHIEF COMPLAINT Patient has no new complaints. She does report that she tripped over a cord and did fall. She has no injuries from this but is a little stiff and sore. Overall she was doing significantly better prior to the fall. IMPRESSION/REPORT/PLAN We did perform stretching bilaterally at the lower extremities, single knee to chest, piriformis and hamstring stretches on the bilateral lower extremities. We also performed hip range of motion. We performed manual resisted hip abduction. We performed short arc quads, TA sets, bridging, all performed at three times 10 repetitions. She is tolerating the session with no increase in pain, improvements noted with strength. . Total treatment time today was 30 minutes. Plan is to continue progressing home exercise program on the next treatment session. Bianca Villalobos D.P.T. /tommy Electronically Signed By: BIANCA VILLALOBOS On: 03/12/2012 01:15 PM [facility] Document Id: [id number] Bianca Villalobos P.T. - 02/27/2012 12:00 AM CDT [id number] PATIENT'S CHIEF COMPLAINT Patient has no new complaints. She reports her symptoms have significantly reduced, exercises are going better. Standing hip extension does cause some back pain. We will limit the range of motion with this. IMPRESSION/REPORT/PLAN We performed manual resisted hip abduction, glut sets, posterior pelvic tilts, TA sets, all at times 10 repetitions, short arc quads at 10 repetitions bilaterally. Also performed standing hip abduction at 10 repetitions bilaterally, standing hip extension through limited range of motion with a TA set at 10 repetitions bilaterally. We also performed stretches in the hamstrings, single knee to chest and piriformis stretches bilaterally. Tolerated the treatment with no complaints of pain. Plan is to continue. Total treatment time today was 30 minutes. Bianca Villalobos D.P.T. /tommy Electronically Signed By: BIANCA VILLALOBOS On: 03/19/2012 02:16 PM [facility] Document Id: [id number] Bianca Villalobos P.T. - 02/20/2012 12:00 AM CDT [id number] CHIEF COMPLAINT Patient has no new complaints with the exception of increased muscle soreness from the new exercises. She reports she was quite sore and was unable to perform them much over the last few days. IMPRESSION/REPORT/PLAN We initiated stationary bicycle times five minutes. We then performed light manual resistance for hip abduction at two times 10 repetitions, TA sets, glut sets, posterior pelvic tilts all at two times 10 repetitions, bilateral quad sets two times 10 repetitions. She tolerated session well. Slight soreness during some of the exercises but overall doing well. She will continue with home exercise program as able without increasing symptoms. Plan to follow up with patient next week. Bianca Villalobos D.P.T. /tommy Electronically Signed By: BIANCA VILLALOBOS On: 02/26/2012 07:48 AM Source: [facility] Document Id: [id number] Bianac Villalobos P.T. - 02/18/2012 12:00 AM CDT [id number] CHIEF COMPLAINT/REASON FOR VISIT Patient had had consultation at [facility] with Dr. Casillas and he would like to continue with physical therapy but also add in the diagnosis of hip osteoarthritis and has sent along some new orders which we will comply with an add into her current program. IMPRESSION/REPORT/PLAN Today we did perform stretches of the hamstrings, hip flexors, single knee to chest and piriformis stretches. We performed hip range of motion as well as strengthening with TA sets, glut sets, bilateral quad sets, short arc quads bilaterally, standing hip abduction, standing hip extension all at 10 repetitions, She will perform this in her home exercise program and progress to three times 10 repetitions as tolerated. Patient tolerated session with no new complaints. GOALS 1. We will add on to previous goals with the addition of patient demonstrating full hip range of motion in four weeks. 2. Patient will demonstrate hip strength at 5 out of 5 in four weeks. PLAN OF CARE Plan of care will remain the same with the addition of hip osteoarthritis as a diagnoses and with the plan of care of patient education, transfers and gait, modalities, range of motion stretching, strengthening, neuromuscular reeducation, aerobic conditioning and trial of equipment as needed. REHAB POTENTIAL She has good rehab potential to achieve goals. PLAN Plan to see patient two to three times a week for up to four weeks. Dr. Sonja Villalobos D.P.T. /tommy Electronically Signed By: BIANCA VILLALOBOS On: 02/19/2012 10:10 AM [facility] Document Id: [id number] Addendum by BIANCA VILLALOBOS on 20 February 2012 14:28 CDT Incorrect spelling of physician name: Dr. Rasmussen from [facility]. Modified by and Electronically Signed by: BIANCA VILLALOBOS On: 02/20/2012 02:28 PM Source: [facility] [employer] Document Id: [id number] Bianca Villalobos P.T. - 02/06/2012 12:00 AM CDT [id number] PATIENT'S CHIEF COMPLAINT Patient has no new complaints. Pain is about the same. IMPRESSION/REPORT/PLAN We performed stretching of the hamstrings, single knee to chest and piriformis stretches performed bilaterally. Performed TA sets, posterior pelvic tilts and glut sets at 10 repetitions apiece. We then performed continuous ultrasound over the left low back at 1 MHz., 1.2 larkin per centimeter squared times five minutes. Patient tolerated treatment well. Treatment times, 30 minutes. Plan is to continue. Bianca Villalobos D.P.T. /tommy Electronically Signed By: BIANCA VILLALOBOS On: 02/12/2012 03:15 PM Source: [facility] Document Id: [id number] Bianca Villlaobos P.T. - 02/02/2012 12:00 AM CDT [id number] PATIENT'S CHIEF COMPLAINT Patient has no new complaints. IMPRESSION/REPORT/PLAN We performed stretching including the hamstring stretches, single knee to chest, piriformis and light gastroc and soleus stretches of the left lower extremity. We then performed continuous ultrasound over the sciatic notch of the left lower extremity at 1 MHz., 1.5 larkin per centimeter squared times total of eight minutes. Patient tolerated treatment well. Treatment times, 30 minutes. Plan is to continue. Bianca Villalobos D.P.T. /tommy Electronically Signed By: BIANCA VILLALOBOS On: 02/18/2012 02:10 PM Source: [facility] Document Id: [id number] Bianca Villalobos P.T. - 01/28/2012 12:00 AM CDT [id number] CHIEF COMPLAINT/REASON FOR VISIT The patient is referred to physical therapy by [place] Varma for left hip pain and sciatica. HISTORY OF PRESENT ILLNESS Patient reports pain in her hips and legs. She reports her pain ranges from 1 out of 10 at best to a 6 out of 10 at worst. Symptoms are noted. Patient reported her symptoms began around the first of the year where she noted pain in the right gluteal that then moved into the left. She is noting pain initially was more over the hip and then has progressed over the sciatic notch. Symptoms are worse in the morning and evening, worse with standing and walking. She feels symptoms in the back of the leg in the left lower extremity shooting down to the knee also noting tingling as well. In sitting, her pain significantly decreases down to minimal to no pain roughly a 1 out of 10. Patient identifies her current limitations as walking. In the past months, she denies any fever or chills, nausea or vomiting, numbness in genital or anal area, dizziness or fainting, unexplained weakness, headaches, unexplained weight change, night sweats or night pain or difficulty with bowel or bladder function. She has had problems with her vision. She just had a surgery on her right and is currently dealing with some complications from that. She rates her overall health as average. She has high stress. She does not smoke, does not drink caffeinated beverages. Denies any difficulty with communication. She is currently retired. PAST MEDICAL/SURGICAL HISTORY Past medical history is positive for osteoporosis, osteoarthritis, back pain, asthma, bladder frequency, dizziness, rheumatoid arthritis and allergies. CURRENT MEDICATIONS Her medication remains the same as her electronic medical record. She notes the only differences since we saw her last visit is that she is no longer taking Tylenol, she is taking Naproxen. Patient also has a history of a laminectomy of her lumbar spine with the ongoing radiculopathy which has been significantly improving until her new pain in the left hip and gluteal. PHYSICAL EXAMINATION Patient has not had any recent falls. Palpation reveals pain and tenderness over the left greater trochanter as well as into the left sciatic notch with the sciatic notch being more painful. Hip range of motion is within functional limits. Manual muscle testing of the lower extremities of the right is a 4+ out of 5 with the dorsiflexors at a 4- out of 5 the left lower extremity is a 4+ out of 5. Straight leg raise is negative. Slump test was negative. Piriformis test was positive for pain reproduction. Significant tightness noted in the hamstrings and gastroc. Deep tendon reflexes were diminished but equal bilaterally. Patient will be treated for hip and sciatic pain. PATIENT EDUCATION Ready to learn No apparent learning barriers were identified Learning preferences include listening Explained diagnosis and treatment plan Patient/Child/Caregiver expressed understanding of the content IMPRESSION/REPORT/PLAN We initiated hamstring stretches, gastroc stretches, knee to chest at 90 degrees of hip flexion performing gentle stretching. We then performed glut sets at 10 repetitions and TA sets at 10 repetitions. These exercises will comprise her home exercise program. We also performed neural flossing which she tolerated well. She is given a written handout with illustrations. PATIENT GOALS: 1. Patient will safely and independently perform independent home exercise program in one to two weeks. 2. Patient will note centralization of symptoms in three to four weeks. 3. Patient will report a 50% reduction in pain in three to four weeks. 4. Patient will increase bilateral lower extremity strength by a minimum of one muscle grade in three to four weeks. PLAN OF CARE: Patient education, home exercise program, stretching, strengthening with core stabilization exercises. Modalities may be used as needed for pain control. She has good rehab potential to achieve goals. Plan to see patient one to three times per week for up to four weeks. Patient also has an appointment scheduled at the [facility] for further evaluation of her back as well. Bianca Villalobos D.P.T. Co-Signature: [place] Varma N.P. /joby Electronically Signed By: BIANCA VILLALOBOS On: 01/29/2012 07:53 AM Co-Signed By: [place] VARMA RN, PARTS CHASER On: 02/02/2012 05:23 AM Source: [facility] Document Id: [id number] documented in this encounter H&P Notes Naya Pagan, O.T. - 07/30/2012 3:52 PM CST OT Initial Evaluation OT Initial Evaluation Entered On: 07/30/2012 16:49 TAPPER HELPER Performed On: 07/30/2012 15:52 TAPPER HELPER by NAYA PAGAN General Info Reason for Referral to OT : Other: l/e edema stage 3 lymphedema Pain Symptoms : Yes NAYA PAGAN - 07/30/2012 15:52 TAPPER HELPER Pain Pain Assessment Grid Pain 1 Location : Knee Laterality : Bilateral Time Pattern : Intermittent Onset : Gradual Quality : Aching NAYA PAGAN - 07/30/2012 15:52 TAPPER HELPER Musculoskeletal Edema OT : Brawny Edema Comment : Bilateral l/e edema; venous insufficiency hemosiderin staining; non mobile edema with papallomas sporadic on bilateral l/e's. Toes squared with small papallomas and negative Stemmer Sign. dorsal aspect of the foot 3+ pitting edema; L>R edema. (Comment: Dense normal colored edema above the knee. Remarkably patient is able to don/doff tubegripG in spite of girth. Patient is an obese female with multiple cardiac conditions including sub therapeutic INR today. She is motivated for a home program. She has had a long history of neglecting her l/e's to the point of having 3cm creases x1 on the right leg and x3 on th e left. She has no evidence of infection or fungal abberations. Sores: blisters, weeping right leg. She will receive a plan of care including low stretch tubegrip size J for the legs, We will give trial to Juxtafit garments next week to avoid infection with weeping wounds. Patient must have a simple, easy to use home management program. [NAYA PAGAN - 07/30/2012 15:52 TAPPER HELPER] ) NAYA PAGAN - 07/30/2012 15:52 TAPPER HELPER Goals OT Patient/Caregiver Goal : Independent; home program for edema management NAYA PAGAN - 07/30/2012 15:52 TAPPER HELPER OT Charge OT Evaluation Charge : Yes OT Number of Patient Visits : 1 Charges - OT : Charges Complete OT Visit, Outpatient : Yes NAYA PAGAN - 07/30/2012 15:52 TAPPER HELPER Source: [employer] Document Id: [id number] ER HELPER documented in this encounter Plan of Treatment Not on filedocumented as of this encounter Visit Diagnoses Not on filedocumented in this encounter
--- OUTSIDE RECORDS SUMMARY | 2022-05-06 13:13 | XMS_ITS | Encounter Summary ---
:1935 Author Organization [facility] Address [address] [place] [address] Care Team Providers Name Role Phone Unavailable Primary Care Provider Unavailable Encounter Details Date Type Department Care Team Description 03/25/2011 Hospital Encounter HX [facility] Sagrario Johnston M.D. [address], [address] [id number] (Wo rk) Social History Tobacco Use Types [...] documented as of this encounter Procedure Notes Tamar Nieto, RDannN. - 03/25/2011 7:24 AM CDT Preprocedure Checklist Preprocedure Checklist Entered On: 03/25/2011 7:34 CDT Performed On: 03/25/2011 7:24 CDT by TAMAR NIETO RN Checklist Last Fluid Intake: 03/24/2011 21:00 CDT Last Food Intake: 03/23/2011 18:30 CDT Last Void: 03/25/2011 6:00 CDT TAMAR NIETO RN - 03/25/2011 7:24 CDT Surgery Prep Grid Contacts/Glasses Removed: Yes Dentures Removed: NA Hairpins/Hairpiecies Removed: NA Hearing Aid Removed: NA Home Prep Complete: Yes Jewelry/Piercing Removed: NA Makeup/Nail Citizen Of [place] Removed: NA Oral Hygiene: Yes Preop Scrub AM of Surgery: NA Preop Scrub Night Prior to Surgery: Yes Prosthesis Removed: NA Surgical Prep Verified: NA Tampon Removed: NA Wearing Patient Gown: Yes TAMAR NIEOT RN - 03/25/2011 7:24 CDT Patient Rights Grid Blood Consent Signed: SHANNA Surgical/Procedure Consent Signed: Yes TAMAR NIETO RN - 03/25/2011 7:24 CDT Family Location: Ed at home [phone] TAMAR NIETO RN - 03/25/2011 7:24 CDT Checklist II Patient Safety Grid Allergy Band on and Verified: Yes Anesthesia Consult: Yes Band on for Limb Alert: NA Blood Band on and Verified: NA Current ECG in Medical Record: NA Current H&P in Medical Record: Yes Implants Verified: NA Medication Reconciliation on Chart: Yes Pacemaker/AICD Verified: NA ID Band on and Verified: Yes Preop Medications Sent With Patient: Yes Relevant Images in Medical Record: NA Review of Labs: NA Procedure/Site Verified by Patient/Family: Yes Procedure/Site Verified by RN: Yes Procedure/Site Verified by Physician: Yes Type & Screen/Type & Cross Completed: TAMAR NINO RN - 03/25/2011 7:24 CDT RN Who Verified Site: TAMAR NIETO RN Physician Who Verified Site: SAGRARIO NOLAND MD, ANNE M RN - 03/25/2011 7:24 CDT Valuables/Belongings Valuables/Belongings Grid Valuables at Bedside Clothes, Patient Valuables: Pants, Shirt, Shoes, Undergarments TAMAR NIETO RN - 03/25/2011 7:24 CDT Education Preprocedure Education Grid Procedure Type: colonoscopy Education Topics: Anesthesia/Sedation, Pain management, Patient rights and responsibilities, Plan ofcare, Preprocedure diet Individuals Taught: Patient Barriers to Learning: None evident Teaching Method: Explanation Teaching Evaluation: Needs reinforcement, Verbalizes understanding TAMAR NIETO RN - 03/25/2011 7:24 CDT Preop Holding Mode of Arrival: Ambulatory Preoperative Orders Complete: Yes TAMAR NIETO RN - 03/25/2011 7:24 CDT Advance Directive Advanced Directives: No Advance Directive Additional Information: Yes TAMAR NIETO RN - 03/25/2011 7:24 CDT Vital Signs Temperature Core: 36.6C(Converted to: 97.9DegF) Apical Heart Rate: 75/min Respiratory Rate: 16/min Systolic Blood Pressure: 123mmHg Diastolic Blood Pressure: 50mmHg (LOW) NIBP Mean: 74mmHg BP Location: Right upper extremity SpO2: 98% Oxygen Therapy: Room air Actual Weight: 57.000kg Actual Weight Conversion to Pounds: 125.400lb TAMAR NIETO RN - 03/25/2011 7:24 CDT Allergy Latex Reaction: No Latex Hives/Itch: No Latex Congestion/Eye Irr/Breathing: No Latex Symptom Progression: No Latex Previous Test: No TAMAR NIETO RN - 03/25/2011 7:24 CDT Allergies (Active) Glutens Estimated Onset Date: Unspecified ; Created By: PATTI ALMENDAREZ LPN; Reaction Status: Active; Category: Drug ; Substance: Glutens ; Type: Allergy ; Updated By: PATTI ALMENDAREZ LPN; Reviewed Date: 03/21/2011 20:08 CDT Nuts Estimated Onset Date: Unspecified ; Created By: PATTI ALMENDAREZ LPN; Reaction Status: Active ; Category: Food ; Substance: Nuts ; Type: Allergy ; Updated By: PATTI ALMENDAREZ LPN; Reviewed Date: 03/21/2011 20:08 CDT Preprocedural Pause Correct Patient Identity: Patient verbalizes self, Patient wristband ID, Family/responsible republican ID Correct Procedure Site and Side: colonoscopy Correct Procedure Site/Side Verified By: Patient/responsible republican, Nurse, MD, Allied Health Staff Site Marking: N/A Pre-Procedure Pause Verbal Confirm. of: Procedure, Site, Side, Patient Position, Patient ID, SpecialSupplies/Equipment TAMAR NIETO RN - 03/25/2011 7:24 CDT [facility] Document Id: [id number] documented in this encounter Nursing Notes Tamar Nieto R.N. - 03/25/2011 7:34 AM CDT Day Surgery Admission History/Asmt Adult Day Surgery Admission History/Asmt Adult Entered On: 03/25/2011 7:43 CDT Performed On: 03/25/2011 7:34 CDT by TAMAR NIETO RN General Info Preferred Name: Kathryn Mode of Arrival: Ambulatory Accompanied By: Alone Preferred Communication Mode: Verbal Information Given By: Patient Languages: Jamaican Status: Patient denies TAMAR NIETO RN - 03/25/2011 7:34 CDT Allergy Allergies (Active) Glutens Estimated Onset Date: Unspecified ; Created By: PATTI ALMENDAREZ LPN; Reaction Status: Active; Category: Drug ; Substance: Glutens ; Type: Allergy ; Updated By: PATTI ALMENDAREZ LPN; Reviewed Date: 03/21/2011 20:08 CDT Nuts Estimated Onset Date: Unspecified ; Created By: PATTI ALMENDAREZ LPN; Reaction Status: Active ; Category: Food ; Substance: Nuts ; Type: Allergy ; Updated By: PATTI ALMENDAREZ LPN; Reviewed Date: 03/21/2011 20:08 CDT Anesth/Transfusion Anesthesia/Transfusions: Prior anesthesia TAMAR NIETO RN - 03/25/2011 7:34 CDT ID Screen Drug Resistant Organism: No TAMAR NIETO RN - 03/25/2011 7:34 CDT TB Symptoms Grid Bloody Sputum: No Fatigue: No Fever: No Loss of Appetite: No Night Sweats: No Persistent Cough Greater Than 3 Weeks: No Weight Loss: No TAMAR NIETO RN - 03/25/2011 7:34 CDT Alcohol and Drug Use: No Employee of Institutional Living Environment: No Health Care Employee: No History of Exposure to TB: No History of Positive Chest X-Ray for TB: No History of Positive TB Skin Test: No Homeless: No Known Immunosuppression: No Recent Immigrant: No Resident of Institutional Living Environment: No TAMAR NIETO RN - 03/25/2011 7:34 CDT Syndrome Surveillance Symptoms Grid Headache: No Illness With Generalized Rash: No Muscle Pain: No New or Worsening Cough: No Shortness of Breath: No Recent Exposure to Communicable Disease: No TAMAR NIETO RN - 03/25/2011 7:34 CDT Travel Within Last 14 Days: No ATMAR NIETO RN - 03/25/2011 7:34 CDT Nutrition Nutrition Risk Factors by History Adult: None Home Diet: Other: gluten and nut free Feeding Ability: Complete independence Eating Difficulties: None Appetite: Excellent TAMAR NIETO RN - 03/25/2011 7:34 CDT Home Environment Current Daily Living Assistance: None Living Situation: Board and snf Equipment: None Sensory Deficits: None Mobility Assistance Prior to Admission: Independent Current Home Treatments: None Professional Skilled Services: None Special Services and Community Resources: None TAMAR NIETO RN - 03/25/2011 7:34 CDT Dependent Habits Tobacco Use/Currently Using: No Tobacco Use/Last 12 months: No Alcohol Use: No TAMAR NIETO RN - 03/25/2011 7:34 CDT Caffeine Use Grid Caffeine Use: Current Type: Coffee Frequency: Weekly TAMAR NIETO RN - 03/25/2011 7:34 CDT Recreational Drug Use Grid Drug Use: None TAMAR NIETO RN - 03/25/2011 7:34 CDT Psychosocial Adult Domestic Abuse Concerns: None Concerns About Family Members at Home: No Emotional Support Available: Yes TAMAR NIETO RN - 03/25/2011 7:34 CDT Advance Directive Advanced Directives: No Advance Directive Additional Information: Yes TAMAR NIETO RN - 03/25/2011 7:34 CDT Educ Needs Patient/Family Education Needs: Activity limitations/expectations, Exercise, Preoperative instructions, Safety, fall, Treatments/Procedures/Tests TAMAR NIETO RN - 03/25/2011 7:34 CDT Learning Style Preference Adult Grid Patient: Verbal explanation Family: None TAMAR NIETO RN - 03/25/2011 7:34 CDT Outpatient Assessment Procedural Respiratory: Respirations unlabored, Respiratory pattern regular, Breath sounds clear alllobes, No cough Procedural Cardiovascular: Heart rhythm regular, Skin color normal for ethnicity, Skin dry and warm Procedural Antiembolism Device: Foot pumps Procedural Neurological: Alert, Oriented x 3, Gait steady, No swallowing difficulty/aspiration risk Procedural Gastrointestinal: Abdomen non-tender and soft, Bowel sounds all quadrants Procedural Genitourinary: Voiding, no difficulties Procedural Integumentary: Skin integrity not intact Procedural Musculoskeletal: Activity tolerance without distress TAMAR NIETO RN - 03/25/2011 7:34 CDT Psycho/Emotional Pain Symptoms: No Affect/Behavior: Calm, Cooperative, Appropriate Feels Rested: Yes TAMAR NIETO RN - 03/25/2011 7:34 CDT Coping Grid Identifies effective strategies: Yes Uses effective strategies: Yes Reports increase in psychological comfort: Yes Indicates sense of control: Yes Stressors perceived within control: Yes Stable mood with appropriate affect: Yes Behaviors indicate use of coping mechanism: Yes Family supportive and involved in care: Yes Values/Beliefs incorporated appropriately: Yes TAMAR NIETO RN - 03/25/2011 7:34 CDT Safety Grid Vision, Hearing, Mobility Adequate to Meet Safety Needs: Yes TAMAR NIETO RN - 03/25/2011 7:34 CDT Peripheral IV Peripheral IV Assess/Intervention Grid Peripheral IV #1 IV Activity: Start Number of Attempts: 1 Date of Insertion: 03/25/2011 CDT IV Site: Hand Laterality: Right Catheter Size: 20 Catheter Type: Protective Site Condition: No complications Drainage Description: None TAMAR NIETO RN - 03/25/2011 7:34 CDT Robel Sensory Perception Robel: No impairment Moisture Robel: Rarely moist Activity Robel: Walks frequently Mobility Robel: No limitations Nutrition Robel: Excellent Friction and Shear Robel: No apparent problem Robel Score: 23 TAMAR NIETO RN - 03/25/2011 7:34 CDT Hendrich II Fall Risk Confusion/Disorientation Hendrich: No Depression Fall Risk Hendrich: No Altered Elimination Fall Risk Hendrich: No Dizziness/Vertigo Fall Risk Hendrich: No Gender, Male Fall Risk Hendrich: No Prescribed Antiepileptics Hendrich: No Prescribed Benzodiazepines Hendrich: No Rising From Chair Fall Risk Hendrich: Able to rise in a single movement, no loss of balance with steps Fall Risk Score Hendrich II: 0 TAMAR NIETO RN - 03/25/2011 7:34 CDT DC Needs Anticipated Discharge Date: 03/25/2011 CDT Discharge To, Anticipated: Home independently Home Treatments, Anticipated: None Home Equipment, Anticipated: None Professional Skilled Services, Anticipated: None Special Serv & Comm Res, Anticipated: None Needs Assistance with Transportation: Yes Needs Assistance at Home Upon Discharge: No TAMAR NIETO RN - 03/25/2011 7:34 CDT Sexuality Sexually Active: Yes Sexual Partners: Monogamous TAMAR NIETO RN - 03/25/2011 7:34 CDT FLACC Face FLACC: No particular expression or smile Legs FLACC: Normal position or relaxed Activity FLACC: Lying quietly, normal position, moves easily Cry FLACC: No cry, awake or asleep Consolabillity FLACC: Content, relaxed FLACC Pain Scale Score: 0 TAMAR NIETO RN - 03/25/2011 7:34 CDT Integumentary Integumentary Patient Stated Symptoms: Bruising, Other: has a sore on right LE from tripping on a metal rooster Skin Turgor: Elastic Skin Integrity: Not intact Mucous Membrane Color: [place] Mucous Membrane Description: Moist Skin Color: Normal for ethnicity Skin Description: Dry Skin Temperature: Warm TAMAR NIETO RN - 03/25/2011 7:34 CDT Incision/Wound Incision/Wound Care Grid Wound Numberin Activity: Dressing intact Type: Abrasion, Bruising Location: Lower leg Laterality: Right TAMAR NIETO RN - 03/25/2011 7:34 CDT Source: [employer] Document Id: [id number]![id number] documented in this encounter OR Notes Op Note - Sagrario Noland M.D. - 03/25/2011 12:00 AM CDT [id number] Preoperative Diagnosis: 1) Recent flare up of diverticulitis. 2) History of colon polyps. Postoperative Diagnosis: Sigmoid diverticulosis - no evidence of inflammation. Procedure Performed: Colonoscopy. Surgeon: Sagrario Noland M.D. Anesthesia: I.V. sedation with MAC. Indications: This [age]-old female had two recent flare ups of severe diverticulitis requiring ER visits. She has been asymptomatic now for the last six to eight weeks. Apparently had a colonoscopy in 2006 although I don't have those records available, and was told that she had polyps but again details not available. She has had no recent change in her bowel habits. No family history of colon cancer. Description of Procedure: After Informed Consent was obtained patient was brought to the endoscopy room and placed in a left lateral decubitus position. After procedural pause, I.V. sedation with MAC was begun digitalrectal exam was unremarkable. The scope was introduced and advanced under direct vision to the cecum; confirmed by anatomy and translumination. The prep was adequate although there were some small stool balls from the diverticula. She required I.V. Glucagon for distal spasm. Careful inspection of the mucosa on insertion and withdrawal through the cecum, ascending, transverse, and descending colon were unremarkable; there were no polyps or other mucosal lesions. In the sigmoid colon there were scattered diverticula of varying sizes but no evidence of acute inflammation or complication. The rectum was unremarkable. Retroflexed maneuver carried out was normal also. The scope was withdrawn intact; withdrawal time twelve minutes. Patient tolerated procedure well, will be observed in PAR and discharged when stable. Follow-up colonoscopy in ten years. Sagrario Noland M.D. /tommy Electronically Signed By: SAGRARIO NOLAND MD On: 03/25/2011 11:21 AM Modified by and Electronically Signed by: SAGRARIO NOLAND MD On: 03/25/2011 11:21 AM Source: [facility] MHSDOLBEYNONRADSYS Document Id: [id number] documented in this encounter Miscellaneous Notes Miscellaneous - Dejah Forbes R.N. - 10/06/2012 2:12 PM CST Reminder Msg From: DEJAH FORBES RN ([facility] Colonoscopy Pool) To: [facility] Colonoscopy Pool; Sent: 10/06/2012 14:11:59 MILITARY ADMINISTRATIVE TECHNICIAN Show up: 10/06/2012 14:11:00 MILITARY ADMINISTRATIVE TECHNICIAN Subject: Reminder Msg Due Date/Time: 04/01/2021 14:11:00 CDT Please Remember to: Repeat colonoscopy in ten years. PATIENT: ( ) Call Patient ( ) Ask Patient to ( ) ( ) Call Relative ( ) Schedule Patient ( ) ( ) Call for Meteorological Aide ( ) Follow up on Results ( ) Other: PROVIDER: ( ) Call Physician ( ) Call Pharmacist ( ) Call Lab ( ) Other: Special Instructions: Comments: Source: [facility] POWERCHART Document Id: [id number] Electronically signed by Conversion, [facility] Document Management Consultant [id number] at 02/15/2017 3:18 PM CDT Miscellaneous - Conversion, Historical Provider Ser - 03/25/2011 9:54 AM CDT Ambulatory Patient Summary [id number] [place] [address] Visit Information Name: KATHRYN LEON Current Date: 03/25/2011 09:54:00 Primary Care Provider: MARY VARMA RN, MEAT CARVER Your Medications Here is a list of your medications. It is important to take your medications as directed. Use a pillbox or chart to help remind you to take your medications. Please let your doctor or nurse know if you have problems taking your medications. Medication/Strength Dose Route Frequency Indications/Special Instructions/Comments bisacodyl [...] you from getting the serious disease Tetanus (Roseline). Your Upcoming Appointments Date Time Location Reason Provider 04/07/2011 09:30 [facility] Family Med FU ON DIVERTICULITUS Mary Lu 04/07/2011 09:30 [facility] Family Med FU ON DIVERTICULITUS AND STITCHES REMOVED Mary Lu Your Goals/Additional instructions: Source: [facility] POWERZapproved Document Id: [id number] Miscellaneous - Conversion, Historical Provider Ser - 03/25/2011 9:53 AM CDT Ambulatory Depart Summary [address] [address] Visit Information Name: CAROLYN ARCHANA Current Date: 03/25/2011 09:53:59 Primary Care Provider: MARY VARMA RN, MEAT CARVER CAROLYN KATHRYN BANDA has been given the following list of medications: Your Medications It is important to take your medications as directed. Use a pill box or chart to help remind you to take your medications. Please let your doctor or nurse know if you have problems taking your medications. Medication/Strength Dose Route Frequency Indications/Special Instructions/Comments bisacodyl [...] drop(s) two times a day Additional Information: Source: [facility] POWERCHART Document Id: [id number] Miscellaneous - Conversion, Historical Provider Ser - 03/25/2011 9:48 AM CDT Adult Postprocedure Assessment Adult Postprocedure Assessment Entered On: 03/25/2011 9:52 CDT Performed On: 03/25/2011 9:48 CDT by OSMAR TAN RN Vital Signs Apical Heart Rate: 64/min Respiratory Rate: 14/min Systolic Blood Pressure: 101mmHg Diastolic Blood Pressure: 40mmHg (<LLOW) NIBP Mean: 60mmHg BP Location: Left upper extremity SpO2: 98% Oxygen Therapy: Room air OSMAR TAN RN - 03/25/2011 9:48 CDT General Level of Consciousness: Alert Orientation: Oriented x 3 Skin Color: Normal for ethnicity Skin Description: Dry Skin Temperature: Warm OSMAR TAN RN - 03/25/2011 9:48 CDT Cardiovascular Heart Rhythm: Regular Nail Bed Color: [place] Edema: None Capillary Refill: Less than 2 seconds OSMAR TAN RN - 03/25/2011 9:48 CDT Pulses Grid Radial Pulse, Left: 2+ Normal OSMAR TAN RN - 03/25/2011 9:48 CDT Respiratory Anesthesia Type: MAC Airway Type: None Oxygen Discontinuation: 03/25/2011 9:20 CDT OSMAR TAN - 03/25/2011 9:48 CDT GI/ Nausea Symptoms: No Passing Flatus: Yes OSMAR TAN - 03/25/2011 9:48 CDT Integumentary Integumentary Patient Stated Symptoms: None Skin Turgor: Elastic Skin Integrity: Intact Mucous Membrane Color: [place] Mucous Membrane Description: Moist Skin Color: Normal for ethnicity Skin Description: Dry Skin Temperature: Warm OSMAR TAN - 03/25/2011 9:48 CDT Incision/Wound Incision/Wound Care Grid Wound Numberin Type: Abrasion, Bruising Location: Lower leg Laterality: Right OSMAR TAN - 03/25/2011 9:48 CDT Peripheral IV Peripheral IV Assess/Intervention Grid Peripheral IV #1 IV Activity: Discontinue Number of Attempts: 1 Date of Insertion: 03/25/2011 CDT IV Site: Hand Laterality: Right Catheter Size: 20 Catheter Type: Protective Site Condition: No complications Drainage Description: None OSMAR TAN - 03/25/2011 9:48 CDT I&O Oral Intake: 250.000mL OSMAR TAN - 03/25/2011 9:48 CDT Nutrition Morning Snack: 100% OSMAR TAN - 03/25/2011 9:48 CDT Neurologic Swallowing Difficulty/Aspiration Risk: None Extremity Movement: Equal OSMAR TAN - 03/25/2011 9:48 CDT Modified Debra Activity: Moves 4 extremities voluntarily or on command Respiratory: Able to deep breathe and cough freely Circulation: BP +/- 20% of preprocedural level or not unusually high or low Consciousness: Fully awake O2 Saturation: O2 SAT at preprocedural level Debra l Score: 10 OSMAR TAN - 03/25/2011 9:48 CDT Robel Sensory Perception Robel: No impairment Moisture Robel: Rarely moist Activity Robel: Walks frequently Mobility Robel: No limitations Nutrition Robel: Excellent Friction and Shear Robel: No apparent problem Robel Score: 23 OSMAR TAN - 03/25/2011 9:48 CDT Hendrich II Fall Risk Confusion/Disorientation Hendrich: No Depression Fall Risk Hendrich: No Altered Elimination Fall Risk Hendrich: No Dizziness/Vertigo Fall Risk Hendrich: No Gender, Male Fall Risk Hendrich: No Prescribed Antiepileptics Hendrich: No Prescribed Benzodiazepines Hendrich: No Rising From Chair Fall Risk Hendrich: Able to rise in a single movement, no loss of balance with steps Fall Risk Score Juanrich II: 0 OSMAR TAN RN - 03/25/2011 9:48 CDT Source: [employer] Document Id: [id number]![id number] Miscellaneous - Conversion, Historical Provider Ser - 03/25/2011 8:50 AM CDT Adult Postprocedure Assessment Adult Postprocedure Assessment Entered On: 03/25/2011 9:21 CDT Performed On: 03/25/2011 8:50 CDT by OSMAR TAN RN Vital Signs Temperature Core: 36.0C(Converted to: 96.8DegF) (LOW) Peripheral Pulse Rate: 62/min Respiratory Rate: 12/min (LOW) Systolic Blood Pressure: 117mmHg Diastolic Blood Pressure: 54mmHg NIBP Mean: 75mmHg BP Location: Right upper extremity SpO2: 96% Oxygen Flow Rate: 2.000L/min Oxygen Therapy: Nasal Cannula OSMAR TAN RN - 03/25/2011 9:17 CDT General Level of Consciousness: Drowsy Orientation: Oriented x 3 Skin Color: Normal for ethnicity Skin Description: Dry Skin Temperature: Warm Pain Symptoms: No OSMAR TAN RN - 03/25/2011 9:17 CDT Cardiovascular Heart Rhythm: Regular Nail Bed Color: [place] Edema: None Capillary Refill: Less than 2 seconds OSMAR TAN RN - 03/25/2011 9:17 CDT Pulses Grid Radial Pulse, Left: 2+ Normal OSMAR TAN RN - 03/25/2011 9:17 CDT Respiratory Anesthesia Type: MAC Airway Type: None Respiratory Pattern: Regular Respirations: Unlabored All Lobes Breath Sounds: Clear OSMAR TAN RN - 03/25/2011 9:17 CDT GI/ Nausea Symptoms: No Passing Flatus: Yes OSMAR TAN RN - 03/25/2011 9:17 CDT Integumentary Integumentary Patient Stated Symptoms: None Skin Turgor: Elastic Skin Integrity: Intact Mucous Membrane Color: [place] Mucous Membrane Description: Moist Skin Color: Normal for ethnicity Skin Description: Dry Skin Temperature: Warm OSMAR TAN Lee RN - 03/25/2011 9:17 CDT Incision/Wound Incision/Wound Care Grid Wound Numberin Type: Abrasion, Bruising Location: Lower leg Laterality: Right DOMINICKOSMAR RN - 03/25/2011 9:17 CDT Peripheral IV Peripheral IV Assess/Intervention Grid Peripheral IV #1 IV Activity: Start Number of Attempts: 1 Date of Insertion: 03/25/2011 CDT IV Site: Hand Laterality: Right Catheter Size: 20 Catheter Type: Protective Site Condition: No complications Drainage Description: None DOMINICK OSMAR Howard RN - 03/25/2011 9:17 CDT Modified Debra Activity: Moves 4 extremities voluntarily or on command Respiratory: Able to deep breathe and cough freely Circulation: BP +/- 20% of preprocedural level or not unusually high or low Consciousness: Arouses on calling O2 Saturation: O2 SAT at preprocedural level Debra l Score: 9 OSMAR TAN Lee RN - 03/25/2011 9:17 CDT Robel Sensory Perception Robel: No impairment Moisture Robel: Rarely moist Activity Robel: Bedfast Mobility Robel: Slightly limited Nutrition Robel: Excellent Friction and Shear Robel: No apparent problem Robel Score: 19 JUAN TANEVGENY Howard RN - 03/25/2011 9:17 CDT Hendrich II Fall Risk Depression Fall Risk Hendrich: No Altered Elimination Fall Risk Hendrich: No Dizziness/Vertigo Fall Risk Hendrich: No Gender, Male Fall Risk Hendrich: No Prescribed Antiepileptics Hendrich: No Prescribed Benzodiazepines Hendrich: No Rising From Chair Fall Risk Hendrich: Able to rise in a single movement, no loss of balance with steps DOMINICK, OSMAR Howard RN - 03/25/2011 9:17 CDT Source: [employer] Document Id: [id number] CDT!86 documented in this encounter Plan of Treatment Not on filedocumented as of this encounter Visit Diagnoses Not on filedocumented in this encounter
--- OUTSIDE RECORDS SUMMARY | 2022-05-06 13:13 | XMS_ITS | Encounter Summary ---
:1935 Author Organization [facility] Address [address] [place] [address] Care Team Providers Name Role Phone Unavailable Primary Care Provider Unavailable Encounter Details Date Type Department Care Team Description 01/21/2012 Hospital Encounter HX [facility] Mary Varma, CYRIL, C.N.P., D. N.P. [address] [place] [address] (Wo rk) Social History Tobacco Use Types Packs/Day Years Used Date Smoking Tobacco: Never Assessed Sex Assigned at Date Recorded Not on file documented as of this encounter Last Filed Vital Signs Vital Sign Reading Time Taken Comments Blood Pressure 118/76 01/21/2012 9:32 AM CDT Pulse 72 01/21/2012 9:32 AM CDT Temperature - - Respiratory Rate - - Oxygen Saturation - - Inhaled Oxygen Concentration - - Weight 74.5 kg (164 lb 3.9 oz) 01/21/2012 9:32 AM CDT Height 163 cm (5' 4.17) 01/21/2012 9:32 AM CDT Body Mass Index 28.04 01/21/2012 9:32 AM CDT documented in this encounter Medications [...] this encounter Progress Notes Mary Varma APRN, C.NDannP. - 01/21/2012 12:00 AM CDT [id number] CHIEF COMPLAINT/REASON FOR VISIT 1. Left hip pain. 2. Muscle cramping. HISTORY OF PRESENT ILLNESS 1. Kathryn is a pleasant 76-year-old female who has a history of a laminectomy of her lumbar spine giving her some radiculopathy within this past two years. The patient has overall been doing well. She does take Neurontin for radiating pain but has been doing quite a bit better. She has, however, been continuing to have significant pain of her left hip. She has had a trochanter bursa injection with short time improvement with her symptoms and progressive pain that radiates down her left leg. She reports the hip pain to be a 7 out of 10 and has seen various providers including myself for this and we have treated with NSAIDs and the injection with no improvement in her symptoms. 2. Muscle cramping. The patient states in the lower legs, her hands, and her foot, she is having significant muscle cramping approximately five to six times per week and much of the time happening at night. It is disrupting her sleeping causing her worsening symptoms. She has noted this mostly in the last two weeks. It seems to be getting worse. Looking back at her laboratory studies, her sodium was 129 on her last visit. CURRENT MEDICATIONS Rochelle D 12-hour twice daily. Aspirin 81 mg daily. Calcium with vitamin D twice daily. Citracal daily. Cosopt ophthalmic solution one drop twice daily. Ferrous gluconate one tablet twice daily. Flonase nasal spray two puffs both nostrils daily. Gabapentin she takes one tablet in the morning and three capsules at bedtime of 300 mg. Multivitamin daily. Omeprazole 40 mg by mouth daily. Restasis eyedrops every 12 hours. Vitamin B12 1000 mcg daily. Travoprost 0.004% ophthalmic solution. Prednisone acetate 1% to right eye. Gatifloxacin 0.5% ophthalmic solution bilaterally two times daily. ALLERGIES Glutens. Nuts. SYSTEMS REVIEW Patient denies any new numbness or tingling in her upper or lower extremities. She denies any recent falls, lightheadedness, or significant weakness. VITAL SIGNS Please see the EMR. PHYSICAL EXAMINATION GENERAL: Patient appears nondistressed. SKIN: Her skin is warm and dry. EXTREMITIES: Her muscles of her upper extremities with no tenderness noted. Her lower extremities with no particular tenderness other than her left buttock area where she has significant discomfort. Her deep tendon reflexes on her lower extremities are symmetrical but decreased. She has a negative straight leg raise and no particular pain with abduction or adduction. IMPRESSION/REPORT/PLAN 1. Left hip pain with sciatica. She has had an x-ray in the past of her hip which was very unremarkable. I did do a lower spine lumbar spine x-ray that did interestingly show one grade anterior lithiasis of L4 and L5. It is new since 12/20/2009 with possible spondylosis of L4. Oblique views may be beneficial and degenerative narrowing of L2 interspace. We did repeat a Chem-8 to just look at her sodium as well as her kidney function which her kidney function was adequate and her sodium was 130 which is stable from previous but not significantly improved. Patient wishes to be referred to orthopedics which I think would be beneficial. She would like to go down to [place]. I will go ahead and help her get that set up for further evaluation. I will have her see physical therapy in the meantime. She is agreeable to that. 2. Cramping and hyponatremia. I do not know the source of this. I did look at her medications and do not see any that would potentially cause hyponatremia. At this point, it is not critical levels and we will just continue to monitor hopefully watch it trend upward. Patient agrees with that plan. PATIENT EDUCATION: Ready to learn No apparent learning barriers were identified Learning preferences include listening Explained diagnosis and treatment plan Patient/Child/Caregiver expressed understanding of the content Mary Varma N.P. /joby Electronically Signed By: MARY VARMA RN, PLANTING MATERIAL REMOVER On: 01/23/2012 02:05 PM Source: [facility] MHSDOLBEYNONRADSYS Document Id: [id number] documented in this encounter Nursing Notes Conversion, Historical Provider Ser - 01/23/2012 8:41 AM CDT Referral Referral to [facility] - Ortho Dept. Appt scheduled for 02-13-12 @ [facility], [address], with Dr. Edwin Rasmussen. [place] will be sending a letter with appt info to pt. Pt informed of date, time & place of appt. Electronically Signed By: KATHRYN TOVAR LPN On: 01/23/2012 08:53 AM Source: [employer] Document Id: [id number] documented in this encounter Miscellaneous Notes Miscellaneous - Mary Varma APRN, C.NOlivia - 01/21/2012 3:22 PM CDT Ambulatory Patient Summary [address] [address] Visit Information Name: KATHRYN LEON Current Date: 01/21/2012 15:22:57 Physicians Attending Provider: MARY VARMA RN, PLANTING MATERIAL REMOVER Primary Care Provider: MARY VARMA RN, PLANTING MATERIAL REMOVER Your Medications Here is a list of your medications. It is important to take your medications as directed. Use a pillbox or chart to help remind you to take your medications. Please let your doctor or nurse know if you have problems taking your medications. Medication/Strength Dose Route Frequency Indications/Special Instructions/Comments calcium citrate (Citracal) once a day prednisoLONE ophthalmic (Prednisolone Acetate 1%) 1 drop(s) [...] cap(s) at bedtime Oral as directed ID [id number] fluticasone nasal (Flonase 0.05 mg/inh nasal spray) [...] unknown Eye disorder Active 01/21/12 date unknown Your Upcoming Appointments Date Time Location Reason Provider 01/28/2012 09:15 [facility] PT/OT hip/sciatica Faviola Guerrero Your Goals/Additional instructions: Source: [facility] POWERCHART Document Id: [id number] Miscellaneous - Mary Varma APRN, C.N.P. - 01/21/2012 3:22 PM CDT Ambulatory Depart Summary [facility] [address] [facility] [place] [address] Visit Information Name: KATHRYN LEON Visit Date: 01/21/2012 15:22:57 Attending Provider: MARY VARMA RN, PLANTING MATERIAL REMOVER Primary Care Provider: MARY VARMA RN, PLANTING MATERIAL REMOVER KATHRYN LEON has been given the following list of medications: Your Medications It is important to take your medications as directed. Use a pill box or chart to help remind you to take your medications. Please let your doctor or nurse know if you have problems taking your medications. Medication/Strength Dose Route Frequency Indications/Special Instructions/Comments calcium citrate (Citracal) once a day prednisoLONE ophthalmic (Prednisolone Acetate 1%) 1 drop(s) [...] cap(s) at bedtime Oral as directed ID [id number] fluticasone nasal (Flonase 0.05 mg/inh nasal spray) [...] your provider for clarification. Additional Information: Source: [facility] POWERCHART Document Id: [id number] Miscellaneous - Yeimy Forbes L.P.N. - 01/21/2012 9:32 AM CDT Adult Cut In Worker Intake/History Adult Cut In Worker Intake/History Entered On: 01/21/2012 9:36 CDT Performed On: 01/21/2012 9:32 CDT by YEIMY FORBES LPN Intake Chief Complaint : left hip , bruistis, pain Onset of Symptoms : since oct Temperature Core : 36.3C(Converted to: 97.3DegF) (LOW) Peripheral Pulse Rate : 72/min Heart Rhythm : Regular Systolic Blood Pressure : 118mmHg Diastolic Blood Pressure : 76mmHg NIBP Mean : 90mmHg BP Location : Right upper extremity Blood Pressure Cuff Size : Regular SpO2 : 97% Oxygen Therapy : Room air Height : 163cm(Converted to: 5ft 4inch(es), 64.17inch(es)) Actual Weight : 74.5kg(Converted to: 164lb 4oz) Weight Source : Standing scale Dosing Weight Clinic : 74.50kg Clinic BSA : 1.84 Body Mass Index : 28.04kg/m2 YEIMY FORBES LPN - 01/21/2012 9:32 CDT Subjective Pain Symptoms : Yes YEIMY FORBES LPN - 01/21/2012 9:32 CDT Pain Pain Assessment Grid Pain 1 Pain 2 Location : Hip (Comment: worse when stands [YEIMY FORBES LPN - 01/21/2012 9:32 CDT] ) Other: chacha horses tammy. legs and hands Laterality : Left Intensity : 7 5 YEIMY FORBES Lee [employer] - 01/21/2012 9:32 CDT SUHA YEIMY Lee [employer] - 01/21/2012 9:32 CDT Dependent Habits Tobacco Use/Currently Using : No Exposure to Tobacco Smoke : Care provider denies smoking in home Smoking Status : Never smoker Alcohol Use : Yes YEIMY FOREBS Lee [facility] - 01/21/2012 9:32 CDT Caffeine Use Grid Caffeine Use : Current Type : Coffee Frequency : Weekly FORBES YEIMY Howard [employer] - 01/21/2012 9:32 CDT Recreational Drug Use Grid Drug Use : None TONI FORBESYOJANA Howard [facility] - 01/21/2012 9:32 CDT Allergy Allergies (Active) Glutens Estimated Onset [...] LPN; Reviewed Date: 01/21/2012 9:26 CDT Source: [facility] [employer]ART Document Id: [id number] documented in this encounter Plan of Treatment Not on filedocumented as of this encounter Procedures Procedure Name Priority Date/Time Associated Diagnosis Comme nts MAGNESIUM, S Routine 01/21/2012 10:07 AM Results for this CDT procedure are i n the results section. BASIC METABOLIC Routine 01/21/2012 10:07 AM Resul ts for this PANEL, S/P CDT procedure are i n the results section. documented in this encounter Results Magnesium (01/21/2012 10:07 AM CDT) P athologist Signature Magnesium, S 2.0 1.7 - 2.1 POWERCHART MGDL Specimen (Source) Anatomical Collection Method Collection Time Re ceived Time Location / / Volume Laterality Blood 01/21/2012 10:07 AM CDT Esperanza Schmidt APRNN.Abelino., D.N.P. LAB BLOOD ADD-ON Performing Organization Address City/State/ZIP Code Phon e Number POWERCHART (ABNORMAL) BMP (Basic Metabolic Panel) (01/21/2012 10:07 AM CDT) [facility] gist Method Time Signature Sodium, S 130.9 (L) 135.0 - POWERCHART 145.0 MML Potassium, S 4.8 3.6 - 4.8 POWERCHART MML Chloride, S 94 (L) 100 - 108 POWERCHART MML CO2 Total 32.7 (H) 23.0 - POWERCHART 29.0 MMOLL BUN (Blood Urea 16 7 - 18 POWERCHART Nitrogen), S MGDL Creatinine 1.05 0.60 - POWERCHART 1.30 MGDL Calcium, Total, 9.5 8.5 - 10.1 POWERCHART S MGDL BUN/Creatinine 15.0 10.0 - POWERCHART Ratio 20.0 Anion Gap 4 (L) 10 - 20 POWERCHART MMOLL HXeGFR (MDRD) 51 <=61 POWERCHART [id number] Comment: A GFR of <60 mL/min is indicative of chr onic kidney disease. (MDRD calculation valid on patients 18 - 70 years.) eGFR Black/ >60 MLMIN PO WERCHART Glucose 58 (L) 70 - 139 MGDL POWERCHART Specimen (Source) Anatomical Collection Method Collection Time Re ceived Time Location / / Volume Laterality Blood 01/21/2012 10:07 AM CDT Angy Schmidt APRN.N.P., D.N.P. LAB BLOOD ADD-ON Performing Organization Address City/State/ZIP Code Phon e Number POWERCHART documented in this encounter Visit Diagnoses Not on filedocumented in this encounter
--- OUTSIDE RECORDS SUMMARY | 2022-05-06 13:13 | XMS_ITS | Encounter Summary ---
:1935 Author Organization [facility] Address [address] [place] [address] Care Team Providers Name Role Phone Unavailable Primary Care Provider Unavailable Encounter Details Date Type Department Care Team Description 07/29/2012 Hospital Encounter HX [facility] ME Mary Cortez, CYRIL, C.N.P., D. N.P. [address] [place] [phone] (Wo rk) Social History Tobacco Use [...]
--- OUTSIDE RECORDS SUMMARY | 2022-05-06 13:13 | XMS_ITS | Encounter Summary ---
:1935 Author Organization [facility] Address [address] [place] [address] Care Team Providers Name Role Phone Unavailable Primary Care Provider Unavailable Encounter Details Date Type Department Care Team Description 01/16/2011 - Hospital Encounter HX [facility] ChapinTabitha, 09/12/2011 [facility] [address] [place] [phone] Social History Tobacco Use Types Packs/Day Years Used Date Smoking Tobacco: Never Assessed Sex Assigned at Date Recorded Not on file documented as of this encounter Discharge Summaries Bianca Villalobos P.T. - 04/03/2011 12:00 AM CDT [id number] DISCHARGE SUMMARY Patient was evaluated and treated for back and leg pain times four treatment sessions. Plan of care included patient education, home exercise program, range of motion, stretching, core stabilization with strengthening and modalities for pain control. She achieved all goals and was discharged into an independent home exercise program. Bianca Villalobos M.P.T. /tommy Electronically Signed By: BIANCA VILLALOBOS On: 04/04/2011 09:09 AM Source: [facility] MHSDOLBEYNONRADSYS Document Id: [id number] documented in this encounter Medications at Time [...] encounter Progress Notes Bianca Villalobos, P.T. - 02/19/2011 12:00 AM CDT [id number] IMPRESSION/REPORT/PLAN We initiated continuous ultrasound over the left low back musculature at 1.5 W/cm2, 1 MHZ times 8 minutes. Exercises to be added to her stretching program performing dynamic lumbar stabilization, lower extremity knee extension at 2x10 repetitions bilaterally, and bridging at 2x10 repetitions. We did try dynamic lumbar stabilization with lower extremity leg raises but this created pain when performing on the left side so she will not perform this in her home program. The patient will add the other two exercised into her program preferably after her walk and before her stretching. The patient demonstrated with independence and was given a written handout with illustrations. She tolerated treatment well. Plan is to continue. Total treatment time today 30 minutes. CHIEF COMPLAINT/REASON FOR VISIT She has noted improvements from previous treatment session. She did try the wedge but did not sleep well with this. She had about two good hours of sleep then had some discomfort so she has discontinued using this. She has switched to two pillows which seems to work better for her. We instructed the patient to stick with the two pillows if that is giving her relief. Bianca Villalobos M.P.T. /joby Electronically Signed By: BIANCA VILLALOBOS On: 02/25/2011 09:22 am Modified by and Electronically Signed by: BIANCA VILLALOBOS On: 02/25/2011 09:22 am Source: [facility] MHSDOLBEYNONRADSYS Document Id: [id number] Bianca Villalobos P.T. - 01/20/2011 12:00 AM CDT [id number] TELEPHONE CONVERSATION This is regarding a telephone conversation. I did talk with patient on 01/17/2011 and 01/18/2011 as well as this morning, 01/20/2011. Patient has been having nausea since the FROZEN FOODS MANAGER maneuvers performed in the Emergency Room and repeated in physical therapy. Each day her symptoms seem to be improving. She denies any spinning or dizziness. She has had complaints of lightheadedness but that is improved today. She will be going in to do a follow-up appointment with her primary care provider, Mary Cortez tomorrow. Over-all, patient continues to demonstrate improvements. We will hold on changing her current treatment plan as she seems to be improving. We will continue to follow-up via telephone. Unique Joseph /tommy Electronically Signed By: BIANCA VILLALOBOS On: 01/21/2011 01:37 Source: [facility] MHSDOLBEYNONRADSYS Document Id: [id number] Bianca Villalobos P.T. - 01/16/2011 12:00 AM CDT [id number] IMPRESSION/REPORT/PLAN We did perform FROZEN FOODS MANAGER maneuvers for the left posterior canal times two repetitions. Patient will continue with precautions. She may sleep in bed tonight. Encouraged patient to use two pillows and avoid sleeping on the left side. Also, to continue to minimize vertical head movements. Patient verbalizes understanding. PATIENT EDU #1 Patient Education Ready to learn. No apparent learning barriers were identified. Learning preferences include listening. Explained diagnosis and treatment plan. Patient/Child/Caregiver expressed understanding of the content. PLAN The plan is to follow-up with patient via telephone tomorrow. We did instruct patient on Uribe-Daroff exercises. She will not initiate these yet but I did want her to understand how to perform them correctly in the event that we need to start these over the weekend. Patient is in agreement with plan of care. GOALS Patient goals: 1) Patient will safely and independently perform home precautions in one to two treatment sessions. 2) Patient will perform home exercise program if needed in one to two weeks. 3) Patient will be symptom free in two to three weeks. PLAN OF CARE Patient education, home exercise program if needed, FROZEN FOODS MANAGER maneuvers. REHAB POTENTIAL Patient has good rehab potential to achieve goals. PLAN The plan is to see patient one to three times per week for up to two to three weeks. CHIEF COMPLAINT/REASON FOR VISIT Patient was evaluated and treated in the ER yesterday under the referral of Dr. Amin. Patient had come in to the Emergency Room with complaints of dizziness. The room was spinning, she had nausea upon waking this morning noting she does demonstrate insidious onset of symptoms when trying to get out of bed towards the left side. She was experiencing very strong symptoms within the ER. On 01/14/2011 she did demonstrate a positive nystagmus for the left posterior canal, she was evaluated and treated with FROZEN FOODS MANAGER maneuvers for the left posterior canal and put on precautions for home. Patient reports that she longer has the spinning or the dizziness but she continues to have some nausea. This has continued since the original onset of symptoms. She does have some questions whether this nausea could be related to the antibiotics that she is on. She will talk to Mary Cortez's nurse today to see if this is a possibility. Over-all doing significantly better. She is still demonstrating very limited head movements and is very cautious. Chief complaint today is primarily the nausea. PHYSCIAL EXAMINATION We reassessed the Hallpike-Jimmy test which was negative for nystagmus. She did have some slight increase in symptoms of nausea and some dizziness upon returning to sit from a supine position. Ez Joseph. Co-Signature: Tabitha Amin P.A.-C. /tommy Electronically Signed By: BIANCA VILLALOBOS On: 01/20/2011 08:50 AM Co-Signed By: TABITHA AMIN On: 11/10/2011 11:37 PM Source: [facility] MHSDOLBEYNONRADSYS Document Id: [id number] documented in this encounter Plan of Treatment Not on filedocumented as of this encounter Visit Diagnoses Not on filedocumented in this encounter
--- OUTSIDE RECORDS SUMMARY | 2022-05-06 13:13 | XMS_ITS | Encounter Summary ---
:1935 Author Organization [facility] Address [address] [place] [id number] Care Team Providers Name Role Phone Unavailable Primary Care Provider Unavailable Encounter Details Date Type Department Care Team Description 12/18/2011 Hospital Encounter HX [facility] ME [place] Varma, CYRIL, C.N.P., D. N.P. [address] [place] [address] (Wo rk) Social History Tobacco Use Types Packs/Day Years Used Date Smoking Tobacco: Never Assessed Sex Assigned at Date Recorded Not on file documented as of this encounter Last Filed Vital Signs Vital Sign Reading Time Taken Comments Blood Pressure 124/70 12/18/2011 7:51 AM CDT Pulse 76 12/18/2011 7:51 AM CDT Temperature - - Respiratory Rate 20 12/18/2011 7:51 AM CDT Oxygen Saturation - - Inhaled Oxygen Concentration - - Weight 73.6 kg (162 lb 4.1 oz) 12/18/2011 7:51 AM CDT Height 163 cm (5' 4.17) 12/18/2011 7:51 AM CDT Body Mass Index 27.7 12/18/2011 7:51 AM CDT documented in this encounter Medications [...] this encounter Progress Notes Albania Varma APRN, C.NDannP. - 12/18/2011 12:00 AM CDT [id number] CHIEF COMPLAINT/REASON FOR VISIT Briana is a pleasant 76-year-old female who is being seen today per the request of Dr. Ayers for preoperative anesthetic clearance for right eye glaucoma surgery to be performed on December 21 at the [facility] in [place]. The patient has had glaucoma for greater than 20 years and has been following with Dr. Ayers for quite some time. She has had a previous surgery on her right eye for the glaucoma and also has had cataract surgery bilaterally. PAST MEDICAL HISTORY She has celiac disease. She has rheumatoid arthritis. 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 PAST SURGICAL HISTORY The cataract surgery as discussed, hemorrhoidectomy, laminectomy approach to the lumbar spine, hysterectomy, cystocele, and a reduction mammoplasty. She also has known osteopenia, diverticulosis, and hip bursitis. CURRENT MEDICATIONS Rochelle D twice daily, Alphagan drops in right eye three times daily, aspirin 81 mg by mouth daily, calcium with vitamin D 600 mg by mouth twice daily, Cosopt ophthalmic solution one drop twice daily, ferrous gluconate 325 by mouth twice daily, Flonase nasal spray two puffs each nostril daily, gabapentin 300 mg one capsule in the morning and three capsules at bedtime, ibuprofen 400 mg up to three times daily as needed for short term but she will hold this prior to surgery starting yesterday, Lumigan one tablet daily, multivitamin one tablet by mouth daily, omeprazole 40 mg by mouth daily, Restasis one drop both eyes every 12 hours, and travoprost 0.004% ophthalmic solution right eye daily, and vitamin B12 1000 mcg daily. ALLERGIES Glutens and nuts. IMMUNIZATIONS She had her zoster shot in 2010 and her tetanus in 2010. LIVING WILL The patient does not have a documented living well on file. CODE STATUS She is a full code. SYSTEMS REVIEW CONSTITUTIONAL: No fevers, chills, sweats, appetite changes, or weight changes. EYES: She does have the glaucoma in the right eye with some visual issues. ENT: The patient denies any sinus drainage or congestion. No nosebleeds. No sores on lips, mouth, or tongue. No recent dental work. No changes in her voice. RESPIRATORY: No shortness of breath or wheezing. No current cough. SKIN: Without any rashes. CVS: No heart murmur. No history of deep vein thrombosis, pulmonary embolus, or palpitations. GI: No swallowing difficulties. She does have some heartburn that is well controlled. No abdominal pain. She does have a history of diverticulitis but not nothing active at this time. No nausea, vomiting or diarrhea. : No urination issues. She does have a history of a cystocele. CHEMISTRY LAB INSTRUCTOR: The patient is postmenopausal. She had a hysterectomy. MUSCULOSKELETAL: She does have some back pain that is related to her hip and left hip discomfort. NEUROLOGIC: She does have headaches usually occurring a couple of times a week. She describes them as right behind her eye, but she denies any head injuries, confusions or seizures. She does have a little weakness in her leg secondary to neuropathy from her back surgery. ENDOCRINE: No changes in skin, hair, or thirst. No diabetes. MENTAL HEALTH: She denies any anxiety or depression. HEMATOLOGIC: She has no swelling or unusual bruising or bleeding. PAST MEDICAL/SURGICAL HISTORY As noted above. 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 She has had a colonoscopy last in 2010, cataract surgery, hemorrhoidectomy, hysterectomy, laminectomy, breast reduction, and repair of cystocele. SOCIAL HISTORY The patient is . She is a nonsmoker. She has very rare use of alcohol, if any. She is retired. FAMILY HISTORY There is no family history of any anesthesia complication, bleeding issues, or malignant hyperthermia. VITAL SIGNS Weight 73.6 kg. Height 163. Her BMI is 27.7. Her blood pressure is 124/70 with a pulse of 76. Temperature is 36.1. Respirations 20. Her obstructive sleep apnea risk is low as she has no history of hypertension nor snoring or known obstructive sleep apnea. PHYSICAL EXAMINATION GENERAL: The patient appears nondistressed. HEENT: Eyes: Pupils even, equal, and react to light. Extraocular movements are normal. ENT: Tympanic membranes are clear bilateral. Teeth: No missing teeth. No loose teeth. Pharynx is open. Nares are patent. NECK: No tenderness. She has full range of motion. Thyroid assessed and negative. LYMPH: No cervical or supraclavicular lymphadenopathy. VESSELS: Carotids with normal upstrokes. No bruits. HEART: Regular rate and rhythm. She has normal S1, S2. There is no murmurs or gallops. Her PMI is nondisplaced. No edema noted. Peripheral pulses are strong bilaterally. LUNGS: Clear to auscultation with good respiratory effort. ABDOMEN: Soft. No organomegaly. She has positive bowel sounds x4 quadrants without any tenderness. MUSCULOSKELETAL: Full range of motion of all her joints. No particular swelling noted. SKIN: No rashes. NEUROLOGIC: Cranial nerves II-XII are grossly intact. PSYCHIATRIC: She is alert and oriented, very interactive. DIAGNOSTICS We will do a complete blood count without differential and a basic metabolic panel to include a potassium and a creatinine and an EKG today as it has been greater than the year for that. IMPRESSION/REPORT/PLAN The patient is medically optimized for surgery to be performed of her right eye to be done by Dr. Andria velazquez at the [facility]. I did explain to her to hold her ibuprofen or any nonsteroidal anti-inflammatory drugs one week prior to surgery. Also we will have her hold her gabapentin the morning of surgery. I answered all her questions. She is not at high risk for clots. No other anticipated complications identified. Patient Education Ready to learn No apparent learning barriers were identified Learning preferences include listening Explained diagnosis and treatment plan Patient/Child/Caregiver expressed understanding of the content [place]ia Varma N.P. / Electronically Signed By: ALBANIA VARMA RN, SPANISH TUTOR On: 12/18/2011 02:03 PM [facility] Document Id: [id number] documented in this encounter Miscellaneous Notes Miscellaneous - [place] Varma APRN, C.N.P. - 12/18/2011 8:29 AM CDT Ambulatory Patient Summary [address] [place] [address] Visit Information Name: BRIANA LEON Current Date: 12/18/2011 08:29:20 Physicians Attending Provider: ALBANIA VARMA RN, SPANISH TUTOR Primary Care Provider: ALBANIA VARMA RN, SPANISH TUTOR Your Medications Here is a list of [...] cap(s) at bedtime Oral as directed ID [id number] fluticasone nasal (Flonase 0.05 mg/inh nasal spray) [...] date unknown Bursitis Hip/Trochanertic Active 10/20/2011 Your Upcoming Appointments Date Time Location Reason Provider No Appointments found Your Goals/Additional instructions: Source: [facility] POWERCHART Document Id: [id number] Miscellaneous - [place]ia Varma APRN, C.N.P. - 12/18/2011 8:29 AM CDT Ambulatory Depart Summary [address] [address] Visit Information Name: CAROLYN, ARCHANA Visit Date: 12/18/2011 08:29:20 Attending Provider: ALBANIA VARMA RN, SPANISH TUTOR Primary Care Provider: ALBANIA VARMA RN, SPANISH TUTOR CAROLYNBRIANA Jimenez has been given the following list of [...] cap(s) at bedtime Oral as directed ID [id number] fluticasone nasal (Flonase 0.05 mg/inh nasal spray) [...] your provider for clarification. Additional Information: Source: [facility] POWERCHART Document Id: [id number] Miscellaneous - Conversion, Historical Provider Ser - 12/18/2011 7:57 AM CDT Obstructive Sleep Apnea Obstructive Sleep Apnea Entered On: 12/18/2011 7:58 CDT Performed On: 12/18/2011 7:57 CDT by TE FUENTES LPN KATHERINE Screening Known Obstructive Sleep Apnea : No TE FUENTES LPN - 12/18/2011 7:57 CDT KATHERINE Assessment Do you have high blood pressure or have you been told to take medication for high blood pressure? : No Frequency of Snoring : Often (1-2 times per week) Frequency of Gasping, Choking, Snorting : Never Neck Circumference (cm) : 38/39 Total Number of Historical Features : 0 TE FUENTES LPN - 12/18/2011 7:57 CDT Source: [facility] POWERCHART Document Id: [id number] CDT!9 Miscellaneous - Conversion, Historical Provider Ser - 12/18/2011 7:51 AM CDT Adult Workers Compensation Claims Supervisor Intake/History Adult Workers Compensation Claims Supervisor Intake/History Entered On: 12/18/2011 7:54 CDT Performed On: 12/18/2011 7:51 CDT by TE FUENTES LPN Intake Chief Complaint : [facility] Core : 36.1C(Converted to: 97.0DegF) (LOW) Peripheral Pulse Rate : 76/min Respiratory Rate : 20/min Systolic Blood Pressure : 124mmHg Diastolic Blood Pressure : 70mmHg NIBP Mean : 88mmHg Height : 163cm(Converted to: 5ft 4inch(es), 64.17inch(es)) Actual Weight : 73.6kg(Converted to: 162lb 4oz) Dosing Weight Clinic : 73.60kg Clinic BSA : 1.83 Body Mass Index : 27.70kg/m2 TE FUENTES LPN - 12/18/2011 7:51 CDT Subjective Pain Symptoms : Yes TE FUENTES LPN - 12/18/2011 7:51 CDT Pain Pain Assessment Grid Pain 1 Location : Hip Laterality : Left Intensity : 4 TE FUENTES LPN - 12/18/2011 7:51 CDT Dependent Habits Tobacco Use/Currently Using : No Exposure to Tobacco Smoke : Care provider denies smoking in home Smoking Status : Never smoker TE FUENTES LPN - 12/18/2011 7:51 CDT Caffeine Use Grid Caffeine Use : Current Type : Coffee Frequency : Weekly TE FUENTES LPN - 12/18/2011 7:51 CDT Recreational Drug Use Grid Drug Use : None TE FUENTES LPN - 12/18/2011 7:51 CDT Allergy Allergies (Active) Glutens Estimated Onset Date: Unspecified ; Created By: PATTI ALMENDAREZ LPN; Reaction Status: Active; Category: Drug ; Substance: Glutens ; Type: Allergy ; Updated By: PATTI ALMENDAREZ LPN; Reviewed Date: 11/26/2011 13:17 CDT Nuts Estimated Onset Date: Unspecified ; Created By: PATTI ALMENDAREZ LPN; Reaction Status: Active ; Category: Food ; Substance: Nuts ; Type: Allergy ; Updated By: PATTI ALMENDAREZ LPN; Reviewed Date: 11/26/2011 13:17 CDT Source: [facility] POWERCHART Document Id: [id number] CDT!34 documented in this encounter Plan of Treatment Not on filedocumented as of this encounter Procedures Procedure Name Priority Date/Time Associated Diagnosis Comme nts CBC WITHOUT Routine 12/18/2011 8:40 AM Results f or this DIFFERENTIAL, B CDT procedure ar e in the results section. BASIC METABOLIC Routine 12/18/2011 8:40 AM Result s for this PANEL, S/P CDT procedure are i n the results section. documented in this encounter Results (ABNORMAL) CBC without Differential (12/18/2011 8:40 AM CDT) P athologist Signature Leukocytes 4.1 (L) 4.8 - 10.8 POWERCHART X109L Erythrocytes 4.25 4.20 - POWERCHART 5.40 X109L Hemoglobin 13.2 12.0 - POWERCHART 15.5 GDL Hematocrit 37.5 37.0 - POWERCHART 47.0 MCV 88 81 - 99 FL POWERCHART HX RDW 12.3 11.5 - POWERCHART 14.5 Platelet Count 187 150 - 450 POWERCHART X109L Specimen (Source) Anatomical Collection Method Collection Time Re ceived Time Location / / Volume Laterality Blood 12/18/2011 8:40 AM CDT [place] Varma APRN, C.N.P., D.N.P. LAB BLOOD ADD-ON Performing Organization Address City/State/ZIP Code Phon e Number POWERCHART (ABNORMAL) BMP (Basic Metabolic Panel) (12/18/2011 8:40 AM CDT) Patholo gist Method Time Signature Sodium, S 129.9 (L) 135.0 - POWERCHART 145.0 MML Potassium, S 4.2 3.6 - 4.8 POWERCHART MML Chloride, S 96 (L) 100 - 108 POWERCHART MML CO2 Total 26.6 23.0 - POWERCHART 29.0 MMOLL BUN (Blood Urea 22 (H) 7 - 18 POWERCHART Nitrogen), S MGDL Creatinine 0.84 0.60 - POWERCHART 1.30 MGDL Calcium, Total, 9.1 8.5 - 10.1 POWERCHART S MGDL BUN/Creatinine 26.0 (H) 10.0 - POWERCHART Ratio 20.0 Anion Gap 7 (L) 10 - 20 POWERCHART MMOLL HXeGFR (MDRD) >60 (H) <=61 POWERCHART [id number] Comment: A GFR of <60 mL/min is indicative of chr onic kidney disease. (MDRD calculation valid on patients 18 - 70 years.) eGFR Black/ >60 MLMIN PO WERCHART Glucose 145 (H) 70 - 139 MGDL POWERCHART Specimen (Source) Anatomical Collection Method Collection Time Re ceived Time Location / / Volume Laterality Blood 12/18/2011 8:40 AM CDT [place] Varma APRN, C.N.P., D.N.P. LAB BLOOD ADD-ON Performing Organization Address City/State/ZIP Code Phon e Number POWERCHART documented in this encounter Visit Diagnoses Not on filedocumented in this encounter
--- OUTSIDE RECORDS SUMMARY | 2022-05-06 13:13 | XMS_ITS | Encounter Summary ---
:1935 Author Organization [facility] Address [address] [place] [address] Care Team Providers Name Role Phone Unavailable Primary Care Provider Unavailable Encounter Details Date Type Department Care Team Description 11/07/2011 Hospital Encounter HX [facility] Sylvester Zamorano III, M.D. [address] [place] [phone] (Wo rk) Social History Tobacco Use Types Packs/Day Years Used Date Smoking Tobacco: Never Assessed Sex Assigned at Date Recorded Not on file documented as of this encounter Last Filed Vital Signs Vital Sign Reading Time Taken Comments Blood Pressure 125/61 11/07/2011 9:39 AM CAMPUS DIRECTOR Pulse 80 11/07/2011 9:39 AM CAMPUS DIRECTOR Temperature - - Respiratory Rate 16 11/07/2011 9:39 AM CAMPUS DIRECTOR Oxygen Saturation - - Inhaled Oxygen Concentration - - Weight 75.4 kg (166 lb 3.6 oz) 11/07/2011 9:39 AM CAMPUS DIRECTOR Height - - Body Mass Index - [...] encounter Progress Notes Earle Zamorano M.D. - 11/07/2011 12:00 AM CST [id number] CHIEF COMPLAINT/REASON FOR VISIT Cough. HISTORY OF PRESENT ILLNESS Ms. Leon is a 76-year-old white female with a past medical history significant for cataracts, glaucoma, and seasonal allergic rhinitis. She comes in today with complaints of a cough that has been persistent for approximately three days now. She has a trip to [place] coming up and she will be gone for nine days. She has a persistent cough that she is concerned may be developing into something else. The cough is not painful until she coughs very hard and then she has some substernal pain. She has some mild chest congestion with that, but it is essentially nonproductive. She denies any fevers, chills, or night sweats. She has been taking some Delsym over the counter to help with her cough, but this has not really produced any relief. She denies having any sick contacts. She has been taking her normal medications which are reconciled in [place] today. SYSTEM REVIEW Pertinent positives and negative are noted above. The remainder of the complete review of systems is negative. PAST MEDICAL/SURGICAL HISTORY 1. Trochanteric bursitis. 2. Diverticulitis. 3. Celiac disease. 4. Cataract. 5. Osteopenia. 6. Glaucoma. 7. Rheumatoid arthritis. 8. Allergic rhinitis. 9. Neuritis due to displacement of a lumbar intervertebral disc. VITAL SIGNS TEMPERATURE: 36.8 degreesC PULSE: 80 RESPIRATIONS: 16 BLOOD PRESSURE: 125/61 OXYGEN SATURATION: 98% on room air PHYSICAL EXAM GENERAL: The patient is alert and cooperative. She is in no acute distress at this time. LUNGS: Coarse breath sounds centrally with no peripheral wheezes. She has good air movement. IMPRESSION/REPORT/PLAN 1. Cough. 2. Acute bronchitis. PLAN: I have recommended symptomatic treatment at this point given the duration of her symptoms and lack of fever and chills. I will give her some cough medicine with codeine to help suppress that and then recommend she continue with her Rochelle D to decrease congestion. She was given instructions on the way to avoid secondary causes of pneumonia. She expresses understanding. All of her questions were answered and reassurance was given. Earle Zamorano III, M.D. /ls Electronically Signed By: EARLE ZAMORANO III, MD On: 11/10/2011 07:58 AM Source: [facility]RAD[facility] Document Id: [id number] US DIRECTOR documented in this encounter Miscellaneous Notes Miscellaneous - Earle Zamorano M.D. - 11/07/2011 10:02 AM CST Ambulatory Patient Summary [facility] [address] [place] [address] Visit Information Name: RBIANA LEON Current Date: 11/07/2011 10:02:33 Physicians Attending Provider: EARLE ZAMORANO III, MD Primary Care Provider: ALBANIA VARMA RN, PHYSICIAN CODING SPECIALIST Your Medications Here is a list of your medications. It is important to take your medications as directed. Use a pillbox or chart to help remind you to take your medications. Please let your doctor or nurse know if you have problems taking your medications. Medication/Strength Dose Route Frequency Indications/Special Instructions/Comments codeine-guaifenesin (codeine-guaifenesin 10 mg-200 mg/5 ml oral liquid) 10 mL Oral every 4 hours as needed for cough Cough due to bronchitis ibuprofen (ibuprofen 400 mg oral tablet) 400 mg Oral three times a day Take with food. Hip pain omeprazole (omeprazole 40 mg oral delayed release capsule) 40 mg Oral once a day gabapentin (gabapentin 300 mg oral capsule) 1 cap(s) in the morning and 3 cap(s) at bedtime Oral as directed ID [id number] fluticasone nasal (Flonase 0.05 mg/inh nasal spray) [...] No Appointments found Your Goals/Additional instructions: Source: [facility] POWERCHART Document Id: [id number] US DIRECTOR Miscellaneous - Earle Zamorano M.D. - 11/07/2011 10:02 AM CST Ambulatory Depart Summary [address] [address] Visit Information Name: BRIANA LEON Visit Date: 11/07/2011 10:02:33 Attending Provider: EARLE ZAMORANO III, MD Primary Care Provider: ALBANIA VARMA RN, PHYSICIAN CODING SPECIALIST BRIANA LEON has been given the following list of medications: Your Medications It is important to take your medications as directed. Use a pill box or chart to help remind you to take your medications. Please let your doctor or nurse know if you have problems taking your medications. Medication/Strength Dose Route Frequency Indications/Special Instructions/Comments codeine-guaifenesin (codeine-guaifenesin 10 mg-200 mg/5 ml oral liquid) 10 mL Oral every 4 hours as needed for cough Cough due to bronchitis ibuprofen (ibuprofen 400 mg oral tablet) 400 mg Oral three times a day Take with food. Hip pain omeprazole (omeprazole 40 mg oral delayed release capsule) 40 mg Oral once a day gabapentin (gabapentin 300 mg oral capsule) 1 cap(s) in the morning and 3 cap(s) at bedtime Oral as directed ID [id number] fluticasone nasal (Flonase 0.05 mg/inh nasal spray) [...] youcontact your provider for clarification. Additional Information: Yes - . Source: [facility] POWERCHART Document Id: [id number] US DIRECTOR Miscellaneous - Ana Hoang L.P.N. - 11/07/2011 9:39 AM CST Adult News Reporter Intake/History Adult News Reporter Intake/History Entered On: 11/07/2011 9:43 CAMPUS DIRECTOR Performed On: 11/07/2011 9:39 CAMPUS DIRECTOR by ANA HOANG LPN Intake Chief Complaint : here with c/o continued cough. using OTC cough medicine. questions left sided brusitis. Temperature Core : 36.8C(Converted to: 98.2DegF) Peripheral Pulse Rate : 80/min Respiratory Rate : 16/min Heart Rhythm : Regular Systolic Blood Pressure : 125mmHg Diastolic Blood Pressure : 61mmHg NIBP Mean : 82mmHg BP Location : Left upper extremity Blood Pressure Cuff Size : Regular SpO2 : 98% Actual Weight : 75.4kg(Converted to: 166lb 4oz) Weight Source : Standing scale Dosing Weight Clinic : 75.40kg ANA HOANG LPN - 11/07/2011 9:39 CAMPUS DIRECTOR Subjective Pain Symptoms : Yes ASLESANA MUNROE LPN - 11/07/2011 9:39 CAMPUS DIRECTOR Pain Pain Assessment Grid Pain 1 Location : Shoulder Laterality : Left Intensity : 5 NAHIDENEANA LPN - 11/07/2011 9:39 CAMPUS DIRECTOR Dependent Habits Tobacco Use/Currently Using : No Exposure to Tobacco Smoke : Care provider denies smoking in home Smoking Status : Never smoker NAHIDENEANA LPN - 11/07/2011 9:39 CAMPUS DIRECTOR Caffeine Use Grid Caffeine Use : Current Type : Coffee Frequency : Weekly ANA HOANG LPN - 11/07/2011 9:39 CAMPUS DIRECTOR Recreational Drug Use Grid Drug Use : None ANA HOANG LPN - 11/07/2011 9:39 CAMPUS DIRECTOR Allergy Allergies (Active) Glutens Estimated Onset Date: Unspecified ; Created By: PATTI ALMENDAREZ LPN; Reaction Status: Active; Category: Drug ; Substance: Glutens ; Type: Allergy ; Updated By: PATTI ALMENDAREZ LPN; Reviewed Date: 11/07/2011 9:39 CAMPUS DIRECTOR Nuts Estimated Onset Date: Unspecified ; Created By: PATTI ALMENDAREZ LPN; Reaction Status: Active ; Category: Food ; Substance: Nuts ; Type: Allergy ; Updated By: PATTI ALMENDAREZ LPN; Reviewed Date: 11/07/2011 9:39 CAMPUS DIRECTOR Source: [facility] POWERCHART Document Id: [id number] CAMPUS DIRECTOR!36 US DIRECTOR documented in this encounter Plan of Treatment Not on filedocumented as of this encounter Visit Diagnoses Not on filedocumented in this encounter
--- OUTSIDE RECORDS SUMMARY | 2022-05-06 13:13 | XMS_ITS | Encounter Summary ---
:1935 Author Organization [facility] Address [address] [place] [id number] Care Team Providers Name Role Phone Unavailable Primary Care Provider Unavailable Encounter Details Date Type Department Care Team Description 09/29/2011 - Hospital Encounter [facility]X [facility] [place] Varma, 11/07/2011 SRV CYRIL, C.N.P., D.N.P. [address] [place] [id number] Social History Tobacco Use Types Packs/Day Years Used Date Smoking Tobacco: Never Assessed Sex Assigned at Date Recorded Not on file documented as of this encounter Discharge Summaries Bianca Villalobos, P.T. - 11/07/2011 12:00 AM CST [id number] DISCHARGE SUMMARY Patient was evaluated treated for re-evaluation of her leg pain status post back surgery under the referral of Albania Varma. She was seen times one treatment session. Patient was progressing nicely with home exercise program and not had any setbacks. We did progress her exercises and she was able to achieve independence with the exercise program. Plan of care included re-evaluation, stretching, and strengthening. Patient achieved goals was discharged into an independent home exercise program. bNa JosephP.TDann /tommy Electronically Signed By: BIANCA VILLALOBOS On: 11/10/2011 08:36 AM Source: [facility] MHSDOLBEYNONRADSYS Document Id: [id number] OR CORPORATE ACCOUNTANT documented in this encounter Medications at Time [...] encounter Progress Notes Bianca Villalobos P.T. - 09/29/2011 12:00 AM CST [id number] HISTORY OF PRESENT ILLNESS The patient returns to physical therapy for reevaluation of leg pain on the referral of Albania Varma. The patient comes in for a recheck as she continues to feel numbness and tingling along the medial aspect and into the foot of the right lower extremity. Minimal symptoms noted in the left. She has noted this since her initial surgery on February 15, 2010, when she underwent an L3 through L5 hemilaminectomy and L3 through L4 discectomies. The patient feels that the numbness and tingling may be more pronounced. She does note that she stopped taking tramadol in July. She takes four Extra Strength Tylenol which does reduce her symptoms. Her symptoms tend to be most pronounced in lying, which has been consistent with previous reports. She also reports that she has had some right hip pain in the last couple of days which began with insidious onset but is not complaining of any back pain or buttock pain at this time. The patient denies any fever or chills, nausea or vomiting, numbness in genital or anal area, dizziness or fainting, unexplained weakness, headaches, unexplained weight change, night sweats or night pain, problems with vision, hearing, or speech or difficulty bowel or bladder function in the last three months. Her overall health is good. She has minimal stress. She does not smoke and does not drink caffeinated beverages. She denies any difficulty with communication and is currently retired. PHYSICAL EXAMINATION On physical reassessment, she has not had any recent falls. Tug test does not reveal any increased risk of falls. The patient needs to be aware of altered sensation which may impact her gait. The patient has not had any confirmed EMG performed. She has not noted any tripping. She is hypersensitive along the medial aspect of the right lower extremity in through the ankle, foot, the great toe, and on the bottom of the foot. She has no obvious swelling in her feet which is improvement from previous assessments. No obvious, muscle atrophy in the lower extremities or feet. Palpation reveals decreased temperature in bilateral feet. Her pedal pulses are intact bilaterally. Capillary refill is normal and equal bilaterally. Range of Motion: The back range of motion is actually improved. She is limited by approximately 75% for flexion and extension. Side-bending is within normal limits. Hip range of motion is within normal limits on the right lower extremity. Right Foot: Dorsiflexion to neutral. Inversion and eversion are within normal limits. Plantar flexion within normal limits. Manual Muscle Testing: The right lower extremity is a 5/5 in strength which is improved from previous treatment session with the noted extensor hallucis longus at a 4/5. Right dorsiflexion, plantar flexion is a 4/5, and inversion/eversion is a 3+/5. Straight leg raise is negative. Heel and toe walking is negative. Patellar reflexes are significantly diminished on the right which was consistent with prior assessments. Achilles reflexes equal bilaterally. Overall, the patient has actually demonstrated some areas of improvement from previous assessments, the last assessment being February 12, 2011. IMPRESSION/REPORT/PLAN Due to the patient's level of hypersensitivity and the length of duration, we will initiate desensitization exercises beginning with a light massage, gradually increasing pressure, progressing to rubbing the foot with a soft cloth, progressing to a towel, and then to a rough ball, gradually increasing pressure as tolerated, to try to do this at least twice a day if possible for 5-10 minutes as able. We also provided the patient with an orange Thera-Band for dorsiflexion, inversion, eversion as well as extensor hallucis longus great toe extension three times, 10 repetitions, to be performed every other day. Patient is to contact us if she notes any change in function or if she starts noticing any kind of tripping or increase in pain, numbness, or tingling as that would be a concern. She is continuing to perform a previous home exercise program including hamstring stretches, single knee to chest, piriformis, and gastroc stretches bilaterally. She also continues with a walking program. She has done a little less often now due to the weather, but she will reinitiate this on the treadmill, and we just encouraged the patient to perform a safe speed that she is comfortable with and as long as she is pain-free and is not catching the foot. She is continuing with bridging exercises, bridging with hip abduction, as well as dynamic lumbar stabilization with lower extremity knee extension and dynamic lumbar stabilization with lower extremity leg raises. Patient reports these exercises are all going well and is not having any difficulty. PATIENT GOALS The patient will safely and independently perform a new exercise program without difficulty in one to two treatment sessions. PATIENT PLAN OF jail exercise program, desensitization, and strengthening. The plan is to talk with the patient's primary physician, we will send her this note for signature, and to review the patient has actually demonstrated progress from previous assessment. The patient will benefit from performing home exercise program as discussed within the physical therapy session. We will follow-up as needed for education on home program. Patient Education Ready to learn No apparent learning barriers were identified Learning preferences include listening Explained diagnosis and treatment plan Patient/Child/Caregiver expressed understanding of the content Nba JosephP.T. Co-Signature: [place] Varma N.P. / Electronically Signed By: BIANCA VILLALOBOS On: 10/02/2011 10:58 AM Modified by and Electronically Signed by: BIANCA VILLALOBOS On: 10/02/2011 10:58 AM Co-Signed By: ALBANIA VARMA RN, EXTENDED INSURANCE CLERK On: 10/02/2011 08:34 PM [facility] Document Id: [id number] OR CORPORATE ACCOUNTANT documented in this encounter Plan of Treatment Not on filedocumented as of this encounter Visit Diagnoses Not on filedocumented in this encounter
--- OUTSIDE RECORDS SUMMARY | 2022-05-06 13:13 | XMS_ITS | Encounter Summary ---
:1935 Author Organization [facility] Address [address] [place] [address] Care Team Providers Name Role Phone Unavailable Primary Care Provider Unavailable Encounter Details Date Type Department Care Team Description 09/23/2011 Hospital Encounter HX [facility] [place] Varma, CYRIL, C.N.P., D. N.P. [address] [place] [phone] (Wo rk) Social History Tobacco Use Types Packs/Day Years Used Date Smoking Tobacco: Never Assessed Sex Assigned at Date Recorded Not on file documented as of this encounter Last Filed Vital Signs Vital Sign Reading Time Taken Comments Blood Pressure 106/70 09/23/2011 9:34 AM TERRAZZO TILE SETTER Pulse 80 09/23/2011 9:34 AM TERRAZZO TILE SETTER Temperature - - Respiratory Rate 16 09/23/2011 9:34 AM TERRAZZO TILE SETTER Oxygen Saturation - - Inhaled Oxygen Concentration - - Weight 74.8 kg (164 lb 14.5 oz) 09/23/2011 9:34 AM TERRAZZO TILE SETTER Height - - Body Mass Index - [...] this encounter Progress Notes Albania Varma APRN, Geovanni. - 09/23/2011 12:00 AM CST [id number] CHIEF COMPLAINT/REASON FOR VISIT 1. Medication refill. 2. Fatigue. HISTORY OF PRESENT ILLNESS 1. Medication refill. Kathryn is a pleasant 76-year-old female who comes in today for a recheck of her medication. She tries to wean herself off of the gabapentin and tramadol, noted significant difference and restarted her gabapentin at three tablets at bedtime and one tablet during the day and feels that that is managing it much better. She has a sensation of her leg falling asleep on the right side otherwise. She is questioning whether she should have a physical therapy reevaluation as she has been doing the same exercises for a year and would like to change that up of what is best for her and she will do that. 2. Fatigue. Patient has a significant history of celiac disease. She states she has noticed that for the past several months or since the fall she has been more fatigued. She does not know if it is related to activity or the winter months, but would just think she may be due for some blood work also. In January of 2012, the patient had a decreased white count 3. Celiac disease. Patient feels that this is well controlled. 4. Need for influenza shot. Patient needs her flu shot. In the past she had always gotten that in three divided doses so we will go ahead and do that again this year. CURRENT MEDICATIONS Rochelle D 12 hour tablets twice daily. Alphagan P drops three times daily in the right eye. Aspirin 81 mg by mouth every other day. Calcium with vitamin D 600 mg by mouth two tablets twice daily. Cosopt ophthalmic solution twice daily. Ferrous gluconate twice daily. Flonase nasal spray two puffs each nostril daily. Gabapentin 300 mg tablets three tablets at bedtime and one tablet in the morning. Gamin every evening. Multivitamin one tablet daily. Omeprazole 40 mg by mouth daily. Restasis as needed twice a day. Vitamin B12 1000 mcg daily. ALLERGIES Glutens. Nuts. SYSTEMS REVIEW Patient denies any chest pain or shortness of breath. No changes in bowel or bladder habits. No current infectious symptoms. The rest of her review of systems was noted to be negative. PAST MEDICAL/SURGICAL HISTORY Past medical-surgical history is noteworthy for celiac disease, neuropathy, lumbar spine surgery, diverticulitis, chronic allergic rhinitis, rheumatoid arthritis, cataract surgery, glaucoma, osteopenia, hemorrhoidectomy, hysterectomy, laminectomy and mammoplasty reduction and a repair of a cystocele. SOCIAL HISTORY Patient is . She is a nonsmoker. Denies any use of alcohol. , retired. FAMILY HISTORY Negative for any breast cancer. VITAL SIGNS Please see EMR for details, but her blood pressure is 106/70 with pulse of 80. Her weight is 74.8 kg. PHYSICAL EXAMINATION GENERAL: Patient appears nondistressed. SKIN: Skin is warm and dry. HEAD: Head is normocephalic. VESSELS: Carotids with normal upstrokes, no bruits. CARDIOVASCULAR: Heart with a regular rate rhythm. Normal S1 andS2; no murmurs or gallops. LUNGS: Clear to auscultation. ABDOMEN: Soft, no organomegaly. EXTREMITIES: Without any edema. LABORATORY STUDIES: Laboratory studies are unremarkable as an ALT is slightly elevated at 45. IMPRESSION/REPORT/PLAN 1. Fatigue 2. Neuritis. 3. Influenza vaccine necessary. 4. Celiac disease. PLAN: We will go ahead and obtain some laboratory studies including a CBC and a complete metabolic panel. We will call the patient with those results and also get a TSH. We will go ahead and refill her medications. I did order a PT evaluation and we will have the patient obtain enough rest and sleep which will hopefully help her fatigue. I suspect that this has something to do with the effects of the weather and we did discuss this. The patient wishes to not make any changes in her medication at this time. PATIENT EDUCATION: Ready to learn No apparent learning barriers were identified Learning preferences include listening Explained diagnosis and treatment plan Patient/Child/Caregiver expressed understanding of the content [place]ia Varma N.P. /joby Electronically Signed By: ALBANIA VARMA RN, WELDING PRODUCTION SUPERVISOR On: 10/01/2011 07:34 AM Source: [facility] MHSDOLBEYNONRADSYS Document Id: [id number] AZZO TILE SETTER documented in this encounter Miscellaneous Notes Miscellaneous - Ana Hoang L.P.N. - 09/23/2011 9:34 AM CST Adult Hog Tender Intake/History Adult Hog Tender Intake/History Entered On: 09/23/2011 9:39 TERRAZZO TILE SETTER Performed On: 09/23/2011 9:34 TERRAZZO TILE SETTER by ANA HOANG LPN Intake Chief Complaint : wants to discuss going to mail order Rx's omeprazole and gabepentin and nasal spray. Wants an Rx for Rochelle. Wants Flu shot which is divided into 3 doses. Temperature Core : 36.4C(Converted to: 97.5DegF) (LOW) Peripheral Pulse Rate : 80/min Respiratory Rate : 16/min Heart Rhythm : Regular Systolic Blood Pressure : 106mmHg Diastolic Blood Pressure : 70mmHg NIBP Mean : 82mmHg BP Location : Left upper extremity Blood Pressure Cuff Size : Regular SpO2 : 98% Actual Weight : 74.8kg(Converted to: 164lb 14oz) Weight Source : Standing scale Dosing Weight Clinic : 74.80kg ANA HOANG LPN - 09/23/2011 9:34 TERRAZZO TILE SETTER Subjective Pain Symptoms : No ANA HOANG LPN - 09/23/2011 9:34 TERRAZZO TILE SETTER Dependent Habits Tobacco Use/Currently Using : No Smoking Status : Never smoker ANA HOANG LPN - 09/23/2011 9:34 TERRAZZO TILE SETTER Caffeine Use Grid Caffeine Use : Current Type : Coffee Frequency : Weekly ANA HOANG LPN - 09/23/2011 9:34 TERRAZZO TILE SETTER Recreational Drug Use Grid Drug Use : None ANA HOANG LPN - 09/23/2011 9:34 TERRAZZO TILE SETTER Allergy Allergies (Active) Glutens Estimated Onset Date: Unspecified ; Created By: PATTI ALMENDAREZ LPN; Reaction Status: Active; Category: Drug ; Substance: Glutens ; Type: Allergy ; Updated By: PATTI ALMENDAREZ LPN; Reviewed Date: 09/23/2011 9:31 TERRAZZO TILE SETTER Nuts Estimated Onset Date: Unspecified ; Created By: PATTI ALMENDAREZ LPN; Reaction Status: Active ; Category: Food ; Substance: Nuts ; Type: Allergy ; Updated By: PATTI ALMENDAREZ LPN; Reviewed Date: 09/23/2011 9:31 TERRAZZO TILE SETTER Source: [facility] POWERCHART Document Id: [id number] TERRAZZO TILE SETTER!29 AZZO TILE SETTER documented in this encounter Plan of Treatment Not on filedocumented as of this encounter Procedures Procedure Name Priority Date/Time Associated Comments Diagnosis AUTOMATED Routine 09/23/2011 10:40 Results for this DIFFERENTIAL, B AM TERRAZZO TILE SETTER procedure ar e in the results section. CBC WITH DIFFERENTIAL, Routine 09/23/2011 10:40 R esults for this B AM TERRAZZO TILE SETTER procedure are i n the results section. THYROID-STIMULATING Routine 09/23/2011 10:40 Resu lts for this HORMONE-SENSITIVE AM TERRAZZO TILE SETTER procedure are in (S-TSH) the results section. COMPREHENSIVE Routine 09/23/2011 10:40 Results fo r this METABOLIC PANEL, S/P AM TERRAZZO TILE SETTER procedu re are in the results section. documented in this encounter Results (ABNORMAL) Automated Differential (09/23/2011 10:40 AM TERRAZZO TILE SETTER) [facility] gist Method Time Signature Neutro % 41.4 (L) 42.0 - POWERCHART 77.0 Lymphocytes % 43.7 23.0 - POWERCHART 44.0 HX Bourbon % 12.1 (H) 2.0 - 11.0 POWERCHART HX Eos % 2.4 1.0 - 5.0 POWERCHART HX Baso % 0.4 0.0 - 1.0 POWERCHART Absolute 1.87 1.70 - POWERCHART Neutrophils 7.00 109L Lymphocytes 1.98 0.90 - POWERCHART 2.90 X109L Monocytes 0.55 0.20 - POWERCHART 0.80 X109L Eosinophils 0.11 0.04 - POWERCHART 0.40 X109L Absolute 0.02 0.02 - POWERCHART Basophil 0.10 X109L Specimen Anatomical Collection Method Collection Time Receive d Time (Source) Location / / Volume Laterality Blood 09/23/2011 10:40 09/23/2011 AM TERRAZZO TILE SETTER 10:40 AM TERRAZZO TILE SETTER [place] Varma APRN, C.N.P., D.N.P. LAB BLOOD ADD-ON Performing Organization Address City/State/ZIP Code Phon e Number POWERCHART (ABNORMAL) CBC with Differential (09/23/2011 10:40 AM TERRAZZO TILE SETTER) Analysis Performed At Patho logist Time Signature Leukocytes 4.5 (L) 4.8 - 10.8 POWERCHART X109L Erythrocytes 4.31 4.20 - POWERCHART 5.40 X109L Hemoglobin 13.1 12.0 - POWERCHART 15.5 GDL Hematocrit 38.9 37.0 - POWERCHART 47.0 MCV 90 81 - 99 FL POWERCHART HX RDW 12.3 11.5 - POWERCHART 14.5 Platelet Count 196 150 - 450 POWERCHART X109L HXDifferential? Auto POWERCHART Specimen (Source) Anatomical Collection Method Collection Time Re ceived Time Location / / Volume Laterality Blood 09/23/2011 10:40 AM TERRAZZO TILE SETTER [place] Varma APRN, C.N.P., D.N.P. LAB BLOOD ADD-ON Performing Organization Address City/State/ZIP Code Phon e Number POWERCHART (ABNORMAL) CMP (Comprehensive Metabolic Panel) (09/23/2011 10:40 AM TERRAZZO TILE SETTER) Patholo gist Method Time Signature Alanine 45 (H) 15 - 37 POWERCHART Amniotransferase, LD UL Albumin, S 4.0 3.5 - 5.0 POWERCHART GDL Alkaline 59 55 - 142 POWERCHART Phosphatase, S UL Aspartate 27 12 - 31 POWERCHART Aminotransferase UL (AST), S Sodium, S 135.7 135.0 - POWERCHART 145.0 MML Potassium, S 4.3 3.6 - 4.8 POWERCHART MML Chloride, S 100 100 - 108 POWERCHART MML CO2 Total 32.8 (H) 23.0 - POWERCHART 29.0 MMOLL BUN (Blood Urea 14 7 - 18 POWERCHART Nitrogen), S MGDL Creatinine 0.87 0.60 - POWERCHART 1.30 MGDL Calcium, Total, S 9.1 8.5 - POWERCHART 10.1 MGDL BUN/Creatinine Ratio 16.0 10.0 - POWERCHAR T 20.0 Anion Gap 3 (L) 10 - 20 POWERCHART MMOLL HXeGFR (MDRD) >60 (H) <=61 POWERCHART [id number] Comment: A GFR of <60 mL/min is indicative of chr onic kidney disease. (MDRD calculation valid on patients 18 - 70 years.) eGFR Black/ >60 MLMIN PO WERCHART Bilirubin, Total, S 0.3 0.1 - 1.0 MGDL POWER CHART Total Protein, S 7.1 6.3 - 7.9 GDL POWERCHAR T Glucose 85 70 - 139 MGDL POWERCHART Specimen (Source) Anatomical Collection Method Collection Time Re ceived Time Location / / Volume Laterality Blood 09/23/2011 10:40 AM TERRAZZO TILE SETTER [place] Varma APRN, C.N.P., D.N.P. LAB BLOOD ADD-ON Performing Organization Address City/State/ZIP Code Phon e Number POWERCHART Thyroid-Stimulating Hormone-Sensitive (s-TSH) (09/23/2011 10:40 AM TERRAZZO TILE SETTER) P athologist Signature TSH 1.79 0.30 - 5.00 POWERCHART (Thyrotropin) MCIUML Specimen (Source) Anatomical Collection Method Collection Time Re ceived Time Location / / Volume Laterality Blood 09/23/2011 10:40 AM TERRAZZO TILE SETTER [place] Varma APRN, C.N.P., D.N.P. LAB BLOOD ADD-ON Performing Organization Address City/State/ZIP Code Phon e Number POWERCHART documented in this encounter Visit Diagnoses Not on filedocumented in this encounter
--- OUTSIDE RECORDS SUMMARY | 2022-05-06 13:13 | XMS_ITS | Encounter Summary ---
:1935 Author Organization [facility] Address [address] [place] [id number] Care Team Providers Name Role Phone Unavailable Primary Care Provider Unavailable Encounter Details Date Type Department Care Team Description 08/30/2012 Hospital Encounter [facility] Vanessa Dutta M.D. Social History Tobacco Use Types Packs/Day Years Used Date Smoking Tobacco: Never Assessed Sex Assigned at Date Recorded Not on file documented as of this encounter Last Filed Vital Signs Vital Sign Reading Time Taken Comments Blood Pressure 120/60 08/30/2012 9:39 AM PAYER SPECIALIST Pulse 72 08/30/2012 9:39 AM PAYER SPECIALIST Temperature - - Respiratory Rate 16 08/30/2012 9:39 AM PAYER SPECIALIST Oxygen Saturation - - Inhaled Oxygen Concentration - - Weight 75.2 kg (165 lb 12.6 oz) 08/30/2012 9:39 AM PAYER SPECIALIST Height - - Body Mass Index 28.65 06/17/2012 10:00 AM CDT documented in this [...] documented as of this encounter Progress Notes Vanessa Dutta M.D. - 08/30/2012 9:26 AM CST [id number] CHIEF COMPLAINT/REASON FOR VISIT Briana is here. She has had a sore throat since Thursday. Her ears hurt on both sides. She said she was around her grandchildren who had strep and so she is concerned she might have strep. She says it hurts when she swallows. She denies any fever. She does not have a cough. PHYSICAL EXAMINATION GENERAL: She does not appear acutely ill. VITAL SIGNS: Temperature is 37.2. HEENT: Tympanic membranes are clear. Pharynx is slightly red. NECK: Supple without lymphadenopathy. LUNGS: Clear. LABORATORY: Rapid strep is negative. IMPRESSION/REPORT/PLAN Viral URI. PLAN: Symptomatic treatment. Return as needed. Vanessa Dutta M.D./[facility] Electronically Signed By: VANESSA DUTTA MD On: 09/03/2012 07:51 AM Source: [facility] [id number] Document Id: [id number] R SPECIALIST documented in this encounter Miscellaneous Notes Miscellaneous - Vanessa Dutta M.D. - 08/30/2012 1:08 PM CST Ambulatory Patient Summary [address] [address] Visit Information Name: BRIANA LEON [facility] Number: [id number] Current Date: 08/30/2012 13:08:08 Physicians Attending Provider: VANESSA DUTTA MD Primary Care Provider: ALBANIA VARMA RN, PATIENT ACCESS DIRECTOR Your Medications Here is a list of [...] week calcium citrate (Citracal) once a day omeprazole (omeprazole 40 mg oral delayed release capsule) 40 mg Oral once a day gabapentin (gabapentin 300 mg oral capsule) 1 cap(s) in the morning and 2 cap(s) at bedtime Oral as directed ID [id number] fluticasone nasal (Flonase 0.05 mg/inh nasal spray) [...] No Appointments found Your Goals/Additional instructions: Source: [facility] POWERCHART Document Id: [id number] R SPECIALIST Miscellaneous - Vanessa Dutta M.D. - 08/30/2012 1:08 PM CST Ambulatory Depart Summary [id number] [place] [address] Visit Information Name: BRIANA LEON [facility] Number: [id number] Visit Date: 08/30/2012 13:08:06 Attending Provider: VANESSA DUTTA MD Primary Care Provider: ALB[place]IA VARMA RN, PATIENT ACCESS DIRECTOR BRIANA LEON has been given the following [...] week calcium citrate (Citracal) once a day omeprazole (omeprazole 40 mg oral delayed release capsule) 40 mg Oral once a day gabapentin (gabapentin 300 mg oral capsule) 1 cap(s) in the morning and 2 cap(s) at bedtime Oral as directed ID [id number] fluticasone nasal (Flonase 0.05 mg/inh nasal spray) [...] your provider for clarification. Additional Information: Source: [facility] POWERCHART Document Id: [id number] R SPECIALIST Miscellaneous - Tabitha Larios L.PDannNDann - 08/30/2012 9:39 AM CST Adult Sensitized Paper Tester Intake/History Adult Sensitized Paper Tester Intake/History Entered On: 08/30/2012 9:41 PAYER SPECIALIST Performed On: 08/30/2012 9:39 PAYER SPECIALIST by TABITHA LARIOS Intake Chief Complaint : st since thursday with bilateral ear ache Temperature Core : 37.2C(Converted to: 99.0DegF) Peripheral Pulse Rate : 72/min Respiratory Rate : 16/min Heart Rhythm : Regular Systolic Blood Pressure : 120mmHg Diastolic Blood Pressure : 60mmHg NIBP Mean : 80mmHg BP Location : Left upper extremity Blood Pressure Cuff Size : Regular Actual Weight : 75.2kg(Converted to: 165lb 13oz) Weight Source : Standing scale Dosing Weight Clinic : 75.20kg TABITHA LARIOS - 08/30/2012 9:39 PAYER SPECIALIST Subjective Pain Symptoms : No TABITHA LARIOS 08/30/2012 9:39 PAYER SPECIALIST Dependent Habits Tobacco Use/Currently Using : No Exposure to Tobacco Smoke : Care provider denies smoking in home Smoking Status : Never smoker TABITHA LARIOS 08/30/2012 9:39 PAYER SPECIALIST Tobacco Use Grid Last Use : never TABITHA LARIOS 08/30/2012 9:39 PAYER SPECIALIST Caffeine Use Grid Caffeine Use : Current Type : Coffee Frequency : Weekly TABITHA LARIOS 08/30/2012 9:39 PAYER SPECIALIST Recreational Drug Use Grid Drug Use : None TABITHA LARIOS 08/30/2012 9:39 PAYER SPECIALIST Allergy Allergies (Active) Glutens Estimated Onset Date: Unspecified ; Created By: PATTI ALMENDAREZ LPN; Reaction Status: Active; Category: Drug ; Substance: Glutens ; Type: Allergy ; Updated By: PATTI ALMENDAREZ LPN; Reviewed Date: 08/30/2012 9:39 PAYER SPECIALIST Nuts Estimated Onset Date: Unspecified ; Created By: PATTI ALMENDAREZ LPN; Reaction Status: Active ; Category: Food ; Substance: Nuts ; Type: Allergy ; Updated By: PATTI ALMENDAREZ LPN; Reviewed Date: 08/30/2012 9:39 PAYER SPECIALIST Source: [facility] POWERCHART Document Id: [id number] R SPECIALIST documented in this encounter Plan of Treatment Not on filedocumented as of this encounter Procedures Procedure Name Priority Date/Time Associated Diagnosis Comme nts RAPID STREP A Routine 08/30/2012 9:55 AM Results for this SCREEN PAYER SPECIALIST procedure are i n the results section. RAPID STREP A Routine 08/30/2012 9:55 AM Results for this SCREEN PAYER SPECIALIST procedure are i n the results section. documented in this encounter Results Rapid Strep A Screen (08/30/2012 9:55 AM PAYER SPECIALIST) [employer] Method Time Signature HXRapid Strep POWERCHART Confirmation HXPre Negative for POWERCHART Group A Strep by culture. HXFinal Negative for POWERCHART Group A Strep by culture. Specimen Anatomical Collection Method Collection Time Receive d Time (Source) Location / / Volume Laterality Throat 08/30/2012 9:55 AM 2 9:55 PAYER SPECIALIST AM PAYER SPECIALIST Vanessa Dutta M.D. LAB MICROBIOLOGY - GENERAL [place] Performing Organization Address City/State/[place] Code Phon e Number POWERCHART Rapid Strep A Screen (08/30/2012 9:55 AM PAYER SPECIALIST) [employer] Method Time Signature HXStrep A POWERCHART Screen Rapid HXFinal Negative for POWERCHART Strep Group A by rapid screen. HXFinal Culture POWERCHART confirmation to follow. Specimen (Source) Anatomical Collection Method Collection Time Re ceived Time Location / / Volume Laterality Throat 08/30/2012 9:55 AM PAYER SPECIALIST Vanessa Dutta M.D. LAB MICROBIOLOGY - GENERAL [place] Performing Organization Address City/State/[place] Code Phon e Number POWERCHART documented in this encounter Visit Diagnoses Not on filedocumented in this encounter
--- OUTSIDE RECORDS SUMMARY | 2022-05-06 13:13 | XMS_ITS | Encounter Summary ---
:1935 Author Organization [facility] Address [address] [place] [address] Care Team Providers Name Role Phone Unavailable Primary Care Provider Unavailable Encounter Details Date Type Department Care Team Description 10/23/2010 Hospital Encounter HX NO MAPPING Skylar Brush M.D. [address] [place] [address] [phone] (Wo rk) Social History Tobacco Use Types Packs/Day Years Used Date Smoking Tobacco: Never Assessed Sex Assigned at Date Recorded Not on file documented as of this encounter Plan of Treatment Not on filedocumented as of this encounter Visit Diagnoses Not on filedocumented in this encounter
--- OUTSIDE RECORDS SUMMARY | 2022-05-06 13:13 | XMS_ITS | Encounter Summary ---
:1935 Author Organization [facility] Address [address] [place] [id number] Care Team Providers Name Role Phone Unavailable Primary Care Provider Unavailable Encounter Details Date Type Department Care Team Description 01/14/[address] [facility] ED Jesus Alberto Troy P.AXavi [address] [place], [place] [phone] (Wo rk) Social History Tobacco Use Types Packs/Day Years Used Date Smoking Tobacco: Never Assessed Sex Assigned at Date Recorded Not on file documented as of this encounter Discharge Summaries Santa Shine R.N. - 01/14/2011 11:10 AM CDT ED Discharge Instructions [address] [address] Name: KATHRYN LEON Date of : 1935 12:00 AM Visit Date: 01/14/2011 7:37 AM Address: [address] [place] [phone] Primary Care Provider: ALBANIA VARMA RN, FILM RECORDIST IMPORTANT: [facility] would like to thank you for allowing us to assist you with your healthcare needs. The following includes patient education materials and information regarding your injury/illness. Follow-Up Instructions: With: Address: When: ALBANIA VARMA [address] [place] [phone] phone, business (1) Within 1week Comments: Patient Education Materials: [id number] VERTIGO [Unknown Cause] The inner ear is located behind the middle ear. It is part of the balance center of your body. Disease of the inner ear causes vertigo -- a false feeling of motion. It feels as if you or the room is spinning. A vertigo attack may cause sudden nausea, vomiting and heavy sweating. Severe vertigo causes a loss of balance and can cause you to fall. During vertigo, small head movements and changes in body position will often make the symptoms worse. The causes of vertigo include: ?? Inflammation of the inner ear ?? Disease of the nerves to the inner ear ?? Movement of calcium particles in the inner ear ?? Poor blood flow to the balance centers of the brain An episode of vertigo may last seconds, minutes or hours. Once you are over the first episode, it may never return. However, sometimes symptoms may recur off and on over several weeks or longer, depending on the cause. There may be ringing in the ears or hearing loss, which may be temporary or permanent. HOME CARE: 1. If symptoms are severe, rest quietly in bed. Change positions very slowly. There is usually one position that will feel best, such as lying on one side or lying on your back with your head slightly raised on pillows. 2. Do not drive or work with dangerous machinery for one week after symptoms go away, in case the symptoms suddenly return. 3. Take medicine as prescribed to relieve your symptoms. Unless another medicine was prescribed for nausea, vomiting and vertigo, you may use [id number] motion sickness pills, such as meclizine (Bonine, Bonamine, Antivert) or dimenhydrinate (Dramamine). FOLLOW UP with your doctor or as directed by our staff. Tell the doctor if your ears keep ringing, or if your hearing does not return to normal. GET PROMPT MEDICAL ATTENTION if any of the following occur: ?? Vertigo gets worse and is not controlled by medicine prescribed ?? Repeated vomiting not relieved by medicine prescribed ?? Increased weakness or fainting ?? Severe headache or unusually drowsy or confused ?? Weakness of an arm or leg or one side of the face Difficulty with speech or vision ?? [id number] [facility], [address] [place] [address], [place] [address]. All rights reserved. This information is not intended as a substitute for professional medical care. Always follow your healthcare professional's instructions. [id number] DIVERTICULITIS Some persons, as they get older, develop pouches along the wall of the colon. These pouches are called diverticuli and usually cause no symptoms. If the pouches become blocked, an infection may occurknown as Diverticulitis. This causes lower abdominal pain and fever. If not treated, it can becomea serious condition, causing an abscess to form inside the pouch. The abscess may block the instestinal tract or rupture spreading infection throughout the abdomen. When treatment is started early, oral antibiotics alone may be enough to cure this condition. This method is tried first. However, if you do not improve or if your condition worsens with oral treatment, it will be necessary to admit you to the hospital for IV antibiotics. Severe cases may require surgery. HOME CARE: 1. During the acute illness, rest and follow a low-fiber diet: ?? Foods to Include: flake cereal, mashed potatoes, pancakes, waffles, pasta, white bread, rice, applesauce, bananas, eggs, meat, fish, poultry, tofu, cooked vegetables without seeds. ?? Foods to Avoid: bran, wheat germ, bread or cereal with nuts, seeds or wheatgerm flour, brown or wild rice, corn, corn meal, corn bread, fruits with seeds or skins; raw vegetables. 2. Take antibiotics exactly as directed. Do not miss any doses. The first few days are the most important. 3. Monitor your temperature and report any rising temperature to your doctor. PREVENTING FUTURE ATTACKS: 1. Once you have had an episode of diverticulitis, you are at risk of having a recurrence. After youhave recovered from this episode, you may be able to reduce your risk by eating a high fiber diet (20-35 gm/day of fiber). This cleans out the colon pouches that already exist and prevent new ones fromforming. Foods high in fiber includes fresh fruits and edible peelings, raw or lightly cooked vegetables, whole grain cereals, breads with nuts or seeds, dried beans and peas, bran. 2. Avoid eating foods with tiny seeds that could become trapped in the pouches and cause an attack of diverticulitis. Therefore, avoid spices with small seeds (dill, celery), fruits with small seeds (strawberries, blueberries, raspberries, blackberries, boysenberries, whole cranberries, raisins and grapes with seeds), popcorn and watermelon seeds. FOLLOW UP with your doctor as advised or sooner if you are not improving in the next TWO days. GET PROMPT MEDICAL ATTENTION if any of the following occur: ?? New fever over 100.0?? F (37.8?? C) or fever that persists more than three days on treatment ?? Repeated vomiting or swelling of the abdomen ?? Weakness, dizziness, light-headedness ?? Increasing abdominal pain that becomes severe or spreads to your back ?? Pain that moves to the right lower abdomen ?? Rectal bleeding (red, black or maroon color of the stools) Unexpected vaginal bleeding ?? [id number] [facility], [address] [place] [address]. All rights reserved. This information is not intended as a substitute for professional medical care. Always follow your healthcare professional's instructions. Discharge Prescriptions & Home Medications: Medication/Strength Dose Route Frequency Indications/Special Instructions/Comments meclizine (meclizine 25 mg oral tablet) 25 [...] a substitute for, or an effort to p rovide, complete medical care. In most cases, you must let your doctor check you again. Tell your doctor about any new or lasting problems. We cannot recognize and treat all injuries or illnesses in one Emergency Department visit. If you had special tests, such as EKG's or X-rays,we will review them again within 24 hours. We will call you if there are any new suggestions. Pleasefollow the instructions above carefully. If you are a patient that is being discharged from the Emergency Department after receiving narcotics or other medications that may impair your judgment you may be a risk to yourself or others if you operate a motor vehicle. We recommend that you arrange a ride home with a responsible libertarian. I, KATHRYN LEON , or responsible libertarian have received this information and my questions have been answered. I have discussed any challenges I see with this plan with the nurse or physician. Patient Signature or Responsible Republican/Relationship Date/Time Provider Signature Date/Time Medication Reconciliation: Reconciliation [...] arrange a ride home with a responsible libertarian. I, CAROLYN KATHRYN BANDA , or responsible libertarian have received this information and my questions have been answered. I have discussed any challenges I see with this plan with the nurse or physician. Patient Signature or Responsible Republican/Relationship Date/Time Provider Signature Date/Time This document has images extracted. Please consider using Other Machine for all your patient education needs. Source: [facility] POWERCHART Document Id: [id number] Santa Shine R.N. - 01/14/2011 11:10 AM CDT ED Depart Summary [facility] Emergency Department Clinical Discharge Summary PERSON INFORMATION Name KATHRYN LEON Age 75 Years 1935 12:00 AM Sex Female Language Bermudian PCP ALBANIA VARMA RN, FILM RECORDIST Marital Status Visit Id Visit Reason Vertigo - recurrent; Vertigo - recurrent; unknown Specialty Enc Type Emergency Med Service Emergency Medicine Referred by Track Group [facility] ED Discharge 01/14/2011 11:09 AM Tracking Id [id number] Checkout 01/14/2011 11:09 AM Checkin 01/14/2011 7:37 AM Acuity Dispo Type Discharged to Home or Self Care Arrival 01/14/2011 7:37 AM Reg Status LOS 000 03:32 Address: [address] [place] [phone] Comment: PROVIDER INFORMATION Provider Role Assigned Unassigned JESUS ALBERTO TROY ED Provider 01/14/2011 8:08 AM CATHIE KAY BONDING MACHINE SETTER Nurse 01/14/2011 8:08 AM DIAGNOSIS Vertigo; Diverticulitis (with diverticulosis) NOS Comment: PATIENT EDUCATION INFORMATION Instructions: VERTIGO, Unspecified; DIVERTICULITIS Follow up: With: Address: When: ALBANIA VARMA [address] [place] [address] phone, business (1) Within 1week Comments: Source: [facility] POWERCHART Document Id: [id number] Electronically signed by Dustin, [facility] Clinical Program Director [id number] at 02/15/2017 6:57 PM CDT documented in this encounter Medications [...] encounter Progress Notes Faviola Villalobos, P.T. - 01/14/2011 9:30 AM CDT PT called to evaluate and treat patient for BPPV under referral of Dr. Troy. Patient has c/o of dizziness, room spinning, nausea upon waking this am. She reports she got out of bed on the left side today. Patient is experiencing strong vertigo symptoms at this time lying with eyes closed and very reluctant to movement. No known history of BPPV, but spouse noted some dizziness in the past. Assessed hallpike chanelle test which was positive for nystagmus in the left posterior canal. Unable to determine latency and duration as patient frequently closed her eyes, but strong nystagmus noted. Performed CLINICAL SERVICES DIRECTOR manuevers for left posterior canal. Educated patient, spouse and staff on precautions due to severityof symptoms. Sleeping at 45 degree angle and avoid lying on left side. Provided patient/spouse with patient education pamphlets [id number] and [id number]. Patient left resting comfortably in bed with nursing observing. I will continue to follow patient on an outpatient basis to ensure resolution of symtoms. Electronically Signed By: FAVIOLA VILLALOBOS On: 01/14/2011 03:50 PM Co-Signed By: JESUS ALBERTO TROY On: 11/10/2011 11:37 PM Source: [facility] [employer]ART Document Id: [id number] documented in this encounter Nursing Notes Cathie Kay, R.N. - 01/14/2011 7:55 AM CDT ED Primary Assessment ED Primary Assessment Entered On: 01/14/2011 7:58 CDT Performed On: 01/14/2011 7:55 CDT by CATHIE KAY RN Reason For Visit Problems(Active) Allergic rhinitis, unspecified Name of Problem: Allergic rhinitis, unspecified ; Recorder: PATTI ALMENDAREZ LPN; Confirmation: Confirmed ; Classification: Nursing ; Code: 1231 ; Contributor System: PlaceFull ; Last Updated: 12/31/2010 7:10 CDT ; Life Cycle Date: 10/25/2010 ; Life Cycle Status: Active ; Responsible Provider: PATTI ALMENDAREZ LPN; Vocabulary: ICD-9-CM Arthritis, rheumatoid* Name of Problem: Arthritis, rheumatoid* ; Onset Date: 02/27/1980 ; Recorder: PATTI ALMENDAREZ LPN; Confirmation: Confirmed ; Classification: Nursing ; Code: 1231 ; Contributor System: PowerChart ; Last Updated: 10/25/2010 14:18 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 ; Life Cycle Date: 10/25/2010 ; Life Cycle Status: Active ; Responsible Provider: PATTI ALMENDAREZ LPN; Vocabulary: ICD-9-CM Cataract NOS Name of Problem: Cataract NOS ; Recorder: PATTI ALMENDAREZ LPN; Confirmation: Confirmed ; Classification: Nursing ; Code: 1231 ; Contributor System: PowerChart ; Last Updated: 10/25/2010 14:21 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 ; Life Cycle Date: 10/25/2010 ; Life Cycle Status: Active ; Responsible Provider: PATTI ALMENDAREZ LPN; Vocabulary: ICD-9-CM Celiac Disease Name of Problem: Celiac Disease ; Onset Date: 02/26/2007 ; Recorder: PATTI ALMENDAREZ LPN; Confirmation: Confirmed ; Classification: Nursing ; Code: 1231 ; Contributor System: PowerChart ; Last Updated: 10/25/2010 14:20 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 ; Life Cycle Date: 10/25/2010 ; Life Cycle Status: Active ; Responsible Provider: PATTI ALMENDAREZ LPN; Vocabulary: ICD-9-CM Diverticulitis of large intestine Name of Problem: Diverticulitis of large intestine ; Onset Date: 10/28/2010 ; Recorder: ALBANIA VARMA RN, CNP; Confirmation: Confirmed ; Classification: Medical ; Code: 1231 ; Last Updated: 10/28/2010 10:30 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 ; Life Cycle Date: 10/28/2010 ; Life Cycle Status: Active ; Responsible Provider: ALBANIA VARMA RN, FILM RECORDIST; Vocabulary: ICD-9-CM Glaucoma Name of Problem: Glaucoma ; Recorder: PATTI ALMENDAREZ LPN; Confirmation: Confirmed ; Classification: Nursing ; Code: 1231 ; Contributor System: FuturestateITChart ; Last Updated: 10/25/2010 14:18 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 ; Life Cycle Date: 10/25/2010 ; Life Cycle Status: Active ; Responsible Provider: PATTI ALMENDAREZ LPN; Vocabulary: ICD-9-CM 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 Name of Problem: 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 ; Recorder: ALBANIA VARMA RN, FILM RECORDIST; Confirmation: Confirmed ; Classification: Medical ; Code: 1231 ; Contributor System: PowerChart ; Last Updated: 11/04/2010 3:49 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 ; Life Cycle Date: 11/04/2010 ; Life Cycle Status: Active ; Responsible Provider: ALBANIA VARMA RN, FILM RECORDIST; Vocabulary: ICD-9-CM Osteopenia Name of Problem: Osteopenia ; Onset Date: 02/26/1987 ; Recorder: PATTI ALMENDAREZ LPN; Confirmation: Confirmed ; Classification: Nursing ; Code: 1231 ; Contributor System: PowerChart ; Last Updated: 10/25/2010 14:19 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 ; Life Cycle Date: 10/25/2010 ; Life Cycle Status: Active ; Responsible Provider: PATTI ALMENDAREZ LPN; Vocabulary: ICD-9-CM Other and Unspecified Vaginal Hysterectomy Name of Problem: Other and Unspecified Vaginal Hysterectomy ; Onset Date: 02/26/1967 ; Recorder: PATTI ALMENDAREZ LPN; Confirmation: Confirmed ; Classification: Nursing ; Code: 1231 ; Contributor System: PowerChart ; Last Updated: 10/25/2010 14:22 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 ; Life Cycle Date: 10/25/2010 ; Life Cycle Status: Active ; Responsible Provider: PATTI ALMENDAREZ LPN; Vocabulary: ICD-9-CM Other Repair of Bladder Name of Problem: Other Repair of Bladder ; Onset Date: 02/26/1995 ; Recorder: PATTI ALMENDAREZ LPN; Confirmation: Confirmed ; Classification: Nursing ; Code: 1231 ; Contributor System: PowerChart ; Last Updated: 11/04/2010 3:55 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 ; Life Cycle Date: 10/25/2010 ; Life Cycle Status: Active ; Responsible Provider: PATTI ALMENDAREZ LPN; Vocabulary: ICD-9-CM Diagnoses(Active) Vertigo - recurrent Date: 01/14/2011 7:42 CDT ; Diagnosis Type: Reason For Visit ; Confirmation: Complaint of ; Classification: Medical ; Clinical Service: Emergency medicine ; Code: PNED ; Probability: 0 ; Diagnosis Code: [id number] Triage Mode of Arrival ED: Ambulance Track: Medical Languages: Bermudian Pain Symptoms: Yes CATHIE KAY RN - 01/14/2011 7:55 CDT ED Physician Notification Time ED Physician Notification Time: 01/14/2011 7:48 CDT CATHIE KAY RN - 01/14/2011 7:55 CDT Allergy Allergies (Active) Glutens Estimated Onset Date: Unspecified ; Created By: PATTI ALMENDAREZ LPN; Reaction Status: Active; Category: Drug ; Substance: Glutens ; Type: Allergy ; Updated By: PATTI ALMENDAREZ LPN; Reviewed Date: 12/31/2010 14:55 CDT Nuts Estimated Onset Date: Unspecified ; Created By: PATTI ALMENDAREZ LPN; Reaction Status: Active ; Category: Food ; Substance: Nuts ; Type: Allergy ; Updated By: PATTI ALMENDAREZ LPN; Reviewed Date: 12/31/2010 14:55 CDT Respiratory Airway: Patent Respirations: Unlabored Respiratory Pattern: Regular Oxygen Therapy: Room air CATHIE KAY RN - 01/14/2011 7:55 CDT Cardiovascular Heart Rhythm: Regular Skin Color: Pale Skin Description: Dry Skin Temperature: Warm CATHIE KAY RN - 01/14/2011 7:55 CDT Neurological Level of Consciousness: Alert Orientation: Oriented x 3 Characteristics of Speech: Clear Neuro Patient Stated Symptoms: Dizziness Gait: Unable to assess Swallowing Difficulty/Aspiration Risk: None Loss of Consciousness: No CATHIE KAY RN - 01/14/2011 7:55 CDT ED Psychosocial Affect/Behavior: Calm Domestic Concerns: None CATHIE KAY RN - 01/14/2011 7:55 CDT Gastrointestinal Nutrition ED: Adequate CATHIE KAY RN - 01/14/2011 7:55 CDT Musculoskeletal Fall Prevention Education Provided: Yes Ambulatory Devices: None CATHIE KAY RN - 01/14/2011 7:55 CDT Social Habits Alcohol Use Grid Alcohol Use: No CATHIE KAY RN - 01/14/2011 7:55 CDT Tobacco Use Grid Tobacco Use: None CATHIE KAY RN - 01/14/2011 7:55 CDT Recreational Drug Use Grid Drug Use: None CATHIE KAY RN - 01/14/2011 7:55 CDT Peripheral IV Peripheral IV Assess/Intervention Grid Peripheral IV #1 IV Activity: Field start Number of Attempts: 1 Date of Insertion: 01/14/2011 CDT IV Site: Wrist Catheter Size: 18 Catheter Type: Protective Site Condition: No complications Drainage Description: None Infiltration Score: 0 Phlebitis Score: 0 CATHIE KAY RN - 01/14/2011 7:55 CDT Source: [employer] Document Id: [id number] CDT!57 documented in this encounter ED Notes Santa Shine R.N. - 01/14/2011 11:06 AM CDT ED Treatments and Procedures ED Treatments and Procedures Entered On: 01/14/2011 11:07 CDT Performed On: 01/14/2011 11:06 CDT by SANTA SHINE RN Peripheral IV Peripheral IV Assess/Intervention Grid Peripheral IV #1 IV Activity: Discontinue Number of Attempts: 1 Date of Insertion: 01/14/2011 CDT IV Site: Wrist Catheter Size: 18 Catheter Type: Protective Site Condition: No complications Drainage Description: None Infiltration Score: 0 Phlebitis Score: 0 Comments (Comment: cath intact [SANTA SHINE RN - 01/14/2011 11:06 CDT] ) SANTA SHINE RN - 01/14/2011 11:06 CDT Source: [employer] Document Id: [id number] CDT!14 Cathie Kay R.N. - 01/14/2011 10:57 AM CDT ED Disposition Summary ED Disposition Summary Entered On: 01/14/2011 10:58 CDT Performed On: 01/14/2011 10:57 CDT by CATHIE KAY RN ED Disposition Summary Accompanied By: Significant other Mode of Discharge: Wheelchair Transportation: Private vehicle Discharge From ED With: Home Med List Patient Status at Discharge from ED: Improved CATHIE KAY RN - 01/14/2011 10:57 CDT Source: [employer] Document Id: [id number] CDT!7 Linnette Allison R.N. - 01/14/2011 9:50 AM CDT ED Treatments and Procedures Document Has Been Updated ED Treatments and Procedures Entered On: 01/14/2011 10:34 CDT Performed On: 01/14/2011 9:50 CDT by LINNETTE ALLISON RN Bladder Scanner Bladder Scan Volume Prevoid: 875mL LINNETTE ALLISON RN - 01/14/2011 10:35 CDT Source: [employer] Document Id: [id number] CDT!3 Jesus Alberto Troy P.A.-C. - 01/14/2011 8:11 AM CDT Dizziness *ED Patient: KATHRYN LEON - CF MRN Age: 75 years Sex: Female : 1935 Author: JESUS ALBERTO TROY Basic Information Time seen: Immediately upon arrival. History source: Significant other. Arrival mode: Ambulance. History limitation: None. Additional information:: Chief Complaint from Nursing Triage Note : Chief Complaint Description. 01/14/2011 7:42 CDT Chief Complaint Description symptoms of vertigo and hx of diverticulitis History of Present Illness The patient presents with vertigo. The onset wasAwoke with symptoms. The course/duration of symptomsis constant. The character of symptoms is spinning, falling and off-balance. The degree at present is moderate. Exacerbating factors consist of changing position, turning head standing. The relieving factor is none. Risk factors consist of recent illness/injury (States she had URI symptoms last week, now resolved.). Prior episodes: none and Pt later recalls that she may have felt pretty dizzy with a previous bout of diverticulitis. Remembers collapsing in a bathroom.. Therapy today: none. Associated symptoms: nausea, vomiting (dry heaves), abdominal pain, altered coordination (unable to walk on own secondary to sensation of room spinning), denies chest pain, denies shortness of breath, denies headache, denies syncope, denies palpitations, denies altered vision, denies altered speech, denies focal weakness, denies altered sensation, denies confusion, not seizure, denies blood in stool and not vaginal bleeding. Pt came to ER today because she awoke with the sensation of the room spinning and feeling as though she was going to fall. Has not been able to ambulate because of this. Prefers to lie still with eyes closed. Admits to recent cough and cold symptoms just last week. Has not had any new or changes in medications. Also c/o left side abdominal pain, achy in nature, for the past 2 days. Radiates to back. Yesterday, thought the pain was due to her chronic back pain. Today, more left abdominal pain. Rates 2/10. Recent h/o diverticulitis, outpt treatment with Flagyl. Last norm BM was yesterday without blood. No diarrhea.. Review of Systems Constitutional symptoms: no fever no chills, no sweats, no weakness, no fatigue. Skin symptoms: Negative except as documented in HPI. Eye symptoms: Negative except as documented in HPI. ENMT symptoms: no ear pain no sore throat, no nasal congestion, no sinus pain. Respiratory symptoms: no shortness of breath no orthopnea, no cough. Cardiovascular symptoms: no chest pain no palpitations, no syncope, no diaphoresis, no peripheral edema. Gastrointestinal symptoms: Abdominal pain, nausea, vomiting (dry heaves this mornig with vertigo. Otherwise no vomiting.) no diarrhea, no constipation, no rectal bleeding. Genitourinary symptoms: no dysuria no hematuria. Musculoskeletal symptoms: Back pain (chronic, lumbar), States she does have some chronic leg pain r/t her back pain and takes gabapentin for this.. Neurologic symptoms: Dizziness no headache, no altered level of consciousness, no numbness, no tingling, no weakness. Psychiatric symptoms: Negative except as documented in HPI. Endocrine symptoms: Negative except as documented in HPI. Hematologic/Lymphatic symptoms: Negative except as documented in HPI. Allergy/immunologic symptoms: Seasonal allergies, food allergies. Additional review of systems information:All systems reviewed as documented in chart. Health Status Allergies: . Allergic Reactions (all) Glutens, Nuts Medications: , Prescriptions and Home Medications dorzolamide-timolol ophthalmic (Cosopt ophthalmic solution), 1 drop(s), 2xDay calcium carbonate (calcium (as carbonate) 600 mg oral tablet), 2 tab(s), PO, 2xDay, 180 tab(s) multivitamin (Multiple Vitamins oral tablet), 1 tab(s), PO, Daily, 30 tab(s) furosemide (Lasix 20 mg oral tablet), 1 tab(s), PO, Daily, 30 tab(s), PRN cyanocobalamin (Vitamin B-12), 1,000 mcg, PO, Daily omeprazole, 20 mg, PO, Daily acetaminophen (Tylenol 500 mg oral tablet), 2, PO, 2xDay, PRN aspirin (aspirin 81 mg oral tablet), 1 tab(s), PO, Every Other Day, 30 tab(s) tramadol, 100 mg, PO, PRN ferrous gluconate, PO, 2xDay bimatoprost ophthalmic (Lumigan), Daily PM brimonidine ophthalmic (Alphagan P), one drop, Eye(Right), 3xDay cycloSPORINE ophthalmic (Restasis), one drop, Eyes(Both), q12hr gabapentin (gabapentin 300 mg oral tablet), 3 tab at bedtime and 1 in am, PO, 2xDay fluticasone nasal (Flonase 0.05 mg/inh nasal spray), 2 spray(s), Nostrils(Both), Daily, 16 gm metronidazole (Flagyl 500 mg oral tablet), 0.5 gm, 1 tab(s), PO, q8hr, 21 tab(s) fexofenadine-pseudoephedrine (Rochelle-D 12 Hour oral tablet, extended release), 1 tab(s), PO, 2xDay,180 tab(s)Used to take Lasix as needed for peripheral swelling. States she no longer takes this.. Immunizations: Up to date. Past Medical/ Family/ Social History Medical history: Medical history, No active or resolved past medical history items have been selected or recorded.Reviewed as documented in chart. Surgical history: Surgical history. Dual-energy X-ray absorptiometry (DXA), bone density study, 1 or more sites; axial skeleton (eg, hips, pelvis, spine) (84777) in 2009 at 75 Years. Comments: 10/25/2010 09:40 - CARMELO RHODES Hx: 60178 - BONE DEN HIPS/PEL/SP Mammogram (847201930) in 2009 at 75 Years. Laminectomy approach to lumbar spine (999622924) in 2008 at 73 Years. Colonoscopy (244159281) in 2008 at 73 Years. Lipid panel This panel must include the following: Cholesterol, serum, total (75803), Lipoprotein, direct measurement, high density cholesterol (HDL cholesterol) (93209), Triglycerides (98051) (49209) in 2008 at 73 Years. Comments: 09/26/2010 16:45 - CARMELO RHODES Hx: 93620 - LIPID PANEL Extracapsular cataract removal with insertion of intraocular lens prosthesis (1 stage procedure), manual or mechanical technique (eg, irrigation and aspiration or phacoemulsification) (75581) in 2006 at 72 Years. Comments: 10/25/2010 20:26 - PATTI ALMENDAREZ LINER REROLL TENDER left Reduction mammaplasty (06537) in 1981 at 47 Years. Hysterectomy (301619189) in 1966 at 31 Years. Hemorrhoidectomy, internal and external, single column/group; (28130) in 195 at 24 Years. Family history: Family history. No family history items have been selected or recorded. Social history: Alcohol use: Occasionally, Tobacco use: Denies, Drug use: Denies, Occupation: Unemployed, Family/social situation: . Problem list: . 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 01/14/2011 7:55 CDT Oxygen Therapy Room air 01/14/2011 7:42 CDT Oxygen Therapy Room air General: Moderate distress. Lies very still with eyes closed. Moans. Speaks softly and slowly.. Skin: Warm. dry. pink. Head: Normocephalic. atraumatic. Neck: Supple Eye: Pupils are equal, round and reactive to light. extraocular movements are intact. Nystagmus noted.. Ears, nose, mouth and throat: Tympanic membranes clear. Oral mucosa moist. No pharyngeal erythema orexudate. Cardiovascular: Regular rate and rhythm. Normal peripheral perfusion. No edema. Respiratory: Lungs are clear to auscultation. respirations are non-labored. breath sounds are equal. Chest wall: No tenderness. No deformity. Back: Pt very dizzy, did not have pt roll to examine back. Musculoskeletal: Normal ROM. normal strength. no tenderness. no swelling. no deformity. Gastrointestinal: Soft. Mild, generalized tenderness, increased over diffuse lower abdomen.. Genitourinary: No tenderness Neurological: Alert and oriented to person, place, time, and situation. No focal neurological deficit observed. normal motor observed. normal speech observed. Lymphatics: No lymphadenopathy Psychiatric: Cooperative. appropriate mood & affect. Medical Decision Making Documents reviewed:Prior records. OrdersLaunch Orders, Laboratory: Urinalysis with Microscopic if Indicated (Order Processing): Stat, 01/14/2011 8:15 CDT, Once, Urine,Cath Urine, Current Location CBC (includes Auto Differential) (Order Processing): Stat, 01/14/2011 8:15 CDT, Once, Blood Comprehensive Metabolic Panel (Order Processing): Stat, 01/14/2011 8:15 CDT, Once, Blood Pharmacy: Antivert (Order Processing): 25 mg, PO, Once Radiology: CT Abdomen/Pelvis w/ contrast (Order Processing): 01/14/2011 8:13 CDT, abdominal pain; recent h/o diverticulitits, Stat, Patient Bed, Once, 24Launch Orders. Pharmacy: NS 250 mL Bolus and Continuous 1,000 mL (Order Processing): 150 mL/hr, IV Results review:Lab results : Lab View. 01/14/2011 10:00 CDT UA Source. Cath Urine UA Color Yellow UA Spec Grav 1.015 UA pH 7.50 UA Protein Negative UA Glucose Negative UA Ketones Negative UA Bili Negative UA Urobilinogen 0.2 UA Blood Negative UA Nitrite Negative UA Leuk Est Negative UA Appear Clear 01/14/2011 8:25 CDT Hgb 12.4 gm/dL Hct 37.3 % WBC 3.3 K/mcL LOW RBC 4.05 K/mcL LOW MCV 92.0 fL MCH 30.5 g/dL MCHC 33.2 g/dL MPV 8.1 fL RDW 12.6 % Platelet 206 K/mcL Neutro % 43.5 % Lymph % 43.1 % [place] % 8.9 % Eos % 4.0 % Baso % 0.5 % Neutro Absolute 1.45 K/UL LOW Lymph Absolute 1.44 K/UL LOW Monocyte Absol 0.30 K/UL Eosino Absolute 0.13 K/UL Basophil Absol 0.02 K/UL Differential? Auto Sodium Lvl 136.1 mmol/L Potassium Lvl 3.6 mmol/L Chloride 106 mmol/L CO2 29.5 mmol/L HI AGAP 1 mmol/L LOW Alkaline Phosphatase 53 U/L LOW Glucose Fasting 121 mg/dL HI Creatinine 0.8 mg/dL EGFR >60 mL/min/1.73m2 HI EGFR >60 mL/min NA BUN 14 mg/dL BUN/Creat Ratio 17.0 Calcium Lvl 8.5 mg/dL Protein Total 5.9 g/dL LOW Albumin Lvl 3.3 g/dL LOW AST 42 U/L HI ALT 69 U/L HI Bili Total 0.3 mg/dL Amylase Lvl 19 U/L LOW Lipase Lvl 17.5 U/L Radiology results:Computed tomography, reviewed radiologist's report. Reexamination/ Reevaluation Re-examination/Re-evaluation:Time 01/14/2011 10:25:00, Course Improving, progressing as expected. Procedure Procedure notes: Davina from Physical Therapy came to ER and performed a Particle Repositioning Manuever on the pt. Pt showed some improvement and was able to open eyes and move head more freely than prior to procedure. Still dizzy but room no longer spinning. Impression and Plan Diagnosis Vertigo (Discharge, Emergency medicine, Medical) Complaint of Vertigo - recurrent (Reason For Visit, Emergency medicine, Medical) Diverticulitis (with diverticulosis) NOS (Discharge, Emergency medicine, Medical) Discharge plan Condition: Improved. Dispositioned: Time 01/14/2011 10:30:00, To home. Patient was given the following educational materials: VERTIGO, Unspecified, DIVERTICULITIS, DIVERTICULITIS, VERTIGO, Unspecified. Limitations: Limited activity, Per PT, for next 48 hours: do not lie flat. Remain upright in 45 degree angle. Do not lie on left side. . Follow up with: ALBANIA VARMA Within 1 week, In: Follow up sooner if new or worsening symptoms. Counseled: Patient, Family. Source: [facility] POWERCHART Document Id: {[id number]} Cathie Kay R.N. - 01/14/2011 7:42 AM CDT ED Triage Assessment ED Triage Assessment Entered On: 01/14/2011 7:50 CDT Performed On: 01/14/2011 7:42 CDT by CATHIE KAY RN Reason For Visit Problems(Active) Allergic rhinitis, unspecified Name of Problem: Allergic rhinitis, unspecified ; Recorder: PATTI ALMENDAREZ LPN; Confirmation: Confirmed ; Classification: Nursing ; Code: 1231 ; Contributor System: PowerChart ; Last Updated: 12/31/2010 7:10 CDT ; Life Cycle Date: 10/25/2010 ; Life Cycle Status: Active ; Responsible Provider: PATTI ALMENDAREZ LPN; Vocabulary: ICD-9-CM Arthritis, rheumatoid* Name of Problem: Arthritis, rheumatoid* ; Onset Date: 02/27/1980 ; Recorder: PATTI ALMENDAREZ LPN; Confirmation: Confirmed ; Classification: Nursing ; Code: 1231 ; Contributor System: PowerChart ; Last Updated: 10/25/2010 14:18 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 ; Life Cycle Date: 10/25/2010 ; Life Cycle Status: Active ; Responsible Provider: PATTI ALMENDAREZ LPN; Vocabulary: ICD-9-CM Cataract NOS Name of Problem: Cataract NOS ; Recorder: PATTI ALMENDAREZ LPN; Confirmation: Confirmed ; Classification: Nursing ; Code: 1231 ; Contributor System: PowerChart ; Last Updated: 10/25/2010 14:21 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 ; Life Cycle Date: 10/25/2010 ; Life Cycle Status: Active ; Responsible Provider: PATTI ALMENDAREZ LPN; Vocabulary: ICD-9-CM Celiac Disease Name of Problem: Celiac Disease ; Onset Date: 02/26/2007 ; Recorder: PATTI ALMENDAREZ LPN; Confirmation: Confirmed ; Classification: Nursing ; Code: 1231 ; Contributor System: PowerChart ; Last Updated: 10/25/2010 14:20 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 ; Life Cycle Date: 10/25/2010 ; Life Cycle Status: Active ; Responsible Provider: PATTI ALMENDAREZ LPN; Vocabulary: ICD-9-CM Diverticulitis of large intestine Name of Problem: Diverticulitis of large intestine ; Onset Date: 10/28/2010 ; Recorder: ALBANIA VARMA RN, CNP; Confirmation: Confirmed ; Classification: Medical ; Code: 1231 ; Last Updated: 10/28/2010 10:30 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 ; Life Cycle Date: 10/28/2010 ; Life Cycle Status: Active ; Responsible Provider: ALBANIA VARMA RN, CNP; Vocabulary: ICD-9-CM Glaucoma Name of Problem: Glaucoma ; Recorder: PATTI ALMENDAREZ LPN; Confirmation: Confirmed ; Classification: Nursing ; Code: 1231 ; Contributor System: PowerChart ; Last Updated: 10/25/2010 14:18 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 ; Life Cycle Date: 10/25/2010 ; Life Cycle Status: Active ; Responsible Provider: PATTI ALMENDAREZ LPN; Vocabulary: ICD-9-CM 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 Name of Problem: 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 ; Recorder: ALBANIA VARMA RN, CNP; Confirmation: Confirmed ; Classification: Medical ; Code: 1231 ; Contributor System: PowerChart ; Last Updated: 11/04/2010 3:49 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 ; Life Cycle Date: 11/04/2010 ; Life Cycle Status: Active ; Responsible Provider: ALBANIA VARMA RN, CNP; Vocabulary: ICD-9-CM Osteopenia Name of Problem: Osteopenia ; Onset Date: 02/26/1987 ; Recorder: PATTI ALMENDAREZ LPN; Confirmation: Confirmed ; Classification: Nursing ; Code: 1231 ; Contributor System: PowerChart ; Last Updated: 10/25/2010 14:19 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 ; Life Cycle Date: 10/25/2010 ; Life Cycle Status: Active ; Responsible Provider: PATTI ALMENDAREZ LPN; Vocabulary: ICD-9-CM Other and Unspecified Vaginal Hysterectomy Name of Problem: Other and Unspecified Vaginal Hysterectomy ; Onset Date: 02/26/1967 ; Recorder: PATTI ALMENDAREZ LPN; Confirmation: Confirmed ; Classification: Nursing ; Code: 1231 ; Contributor System: FuturestateITChart ; Last Updated: 10/25/2010 14:22 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 ; Life Cycle Date: 10/25/2010 ; Life Cycle Status: Active ; Responsible Provider: PATTI ALMENDAREZ LPN; Vocabulary: ICD-9-CM Other Repair of Bladder Name of Problem: Other Repair of Bladder ; Onset Date: 02/26/1995 ; Recorder: PATTI ALMENDAREZ LPN; Confirmation: Confirmed ; Classification: Nursing ; Code: 1231 ; Contributor System: PowerChart ; Last Updated: 11/04/2010 3:55 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 ; Life Cycle Date: 10/25/2010 ; Life Cycle Status: Active ; Responsible Provider: PATTI ALMENDAREZ LPN; Vocabulary: ICD-9-CM Diagnoses(Active) Vertigo - recurrent Date: 01/14/2011 7:42 CDT ; Diagnosis Type: Reason For Visit ; Confirmation: Complaint of ; Classification: Medical ; Clinical Service: Emergency medicine ; Code: PNED ; Probability: 0 ; Diagnosis Code: [id number] Triage Chief Complaint Description: symptoms of vertigo and hx of diverticulitis Information Given By: Patient Accompanied By: EMS, Spouse Mode of Arrival ED: Ambulance Track: Medical Languages: Bermudian Pain Symptoms: Yes Pain Medication Requested: No Vital Signs Assessed: Yes GCS Assessed: Yes Treatments Prior to Arrival: IV insertion, Other: zofran 4 mg given at scene CATHIE KAY RN - 01/14/2011 7:42 CDT Pain Pain Assessment Grid Pain 1 Location: Abdomen Intensity: 2 CATHIE KAY RN - 01/14/2011 7:42 CDT Vital Signs Temperature Core: 36.2C(Converted to: 97.2DegF) (LOW) Peripheral Pulse Rate: 72/min Respiratory Rate: 20/min Systolic Blood Pressure: 145mmHg (HI) Diastolic Blood Pressure: 75mmHg NIBP Mean: 98mmHg BP Location: Left upper extremity SpO2: 97% Oxygen Therapy: Room air CATHIE KAY RN - 01/14/2011 7:42 CDT Nabil Coma Eye Opening Response Nabil: Spontaneously Best Verbal Response [place]: Oriented Best Motor Response Nabil: Obeys simple commands [place] Coma Score: 15 CATHIE KAY RN - 01/14/2011 7:42 CDT ED Physician Notification Time ED Physician Notification Time: 01/14/2011 7:48 CDT CATHIE KAY RN - 01/14/2011 7:42 CDT Allergy Allergies (Active) Glutens Estimated Onset Date: Unspecified ; Created By: PATTI ALMENDAREZ LPN; Reaction Status: Active; Category: Drug ; Substance: Glutens ; Type: Allergy ; Updated By: PATTI ALMENDAREZ LPN; Reviewed Date: 12/31/2010 14:55 CDT Nuts Estimated Onset Date: Unspecified ; Created By: PATTI ALMENDAREZ LPN; Reaction Status: Active ; Category: Food ; Substance: Nuts ; Type: Allergy ; Updated By: PATTI ALMENDAREZ LPN; Reviewed Date: 12/31/2010 14:55 CDT Immunizations Last Tetanus: < 5 years Pneumovac: Last 5 years Influenza: This year CATHIE KAY RN - 01/14/2011 7:42 CDT Source: [employer] Document Id: [id number]!39 documented in this encounter Miscellaneous Notes Miscellaneous - Cathie Kay RChelsey - 01/14/2011 10:57 AM CDT Valuables/Belongings Valuables/Belongings Entered On: 01/14/2011 10:57 CDT Performed On: 01/14/2011 10:57 CDT by CATHIE KAY RN Valuables/Belongings Belongingdaria Sent Home With: sent with patient CATHIE KAY RN - 01/14/2011 10:57 CDT Source: [facility] POWERCHART Document Id: [id number]!3 Miscellaneous - Cathie Kay R.N. - 01/14/2011 7:37 AM CDT Facility Charge Ticket Facility Charge Ticket Entered On: 01/14/2011 10:58 CDT Performed On: 01/14/2011 7:37 CDT by CATHIE KAY RN Facility Charge TVL Level for Facility Charge Ticket: Level 3 Mode of Arrival ED: Ambulance Arrival Mode Ca,097 Lynx Mode of Arrival Interpreted: ALS Lynx Process Management: None Lynx Order Management: CT/MRI/Ultrasound, Lab tests 30 Minutes Critical Care: No Lynx Nursing Assessment: Triage and 3-5 nursing assessments Lynx Disposition: Discharge Lynx Total Points with Diagnosis Control: 12 Lynx Visit Level: 27176 Level 4 Treatments Prior to Arrival: IV insertion, Other: zofran 4 mg given at scene CATHIE KAY RN - 01/14/2011 10:58 CDT Source: [facility] POWERCHART Document Id: [id number] CDT!14 documented in this encounter Plan of Treatment Not on filedocumented as of this encounter Visit Diagnoses Not on filedocumented in this encounter
--- OUTSIDE RECORDS SUMMARY | 2022-05-06 13:13 | XMS_ITS | Encounter Summary ---
:1935 Author Organization [facility] Address [address] [place] [address] Care Team Providers Name Role Phone Unavailable Primary Care Provider Unavailable Encounter Details Date Type Department Care Team Description 09/24/2011 Hospital Encounter [facility]X [facility] Mary Cortez, CYRIL, C.N.P., D. N.P. [address] [place] [address] (Wo rk) Social History Tobacco [...] documented as of this encounter Nursing Notes Sujatha Mar L.P.N. - 09/24/2011 9:51 AM CST Patient was in for the 2nd dose of her 3 dose series of the influenza vaccine given 0.2 cc IM left deltoid patient tolerated well no concerns voiced Electronically Signed By: SUJATHA MAR LPN On: 09/24/2011 09:57 AM Source: [facility] POWERCHART Document Id: [id number] S INSPECTOR documented in this encounter Plan of Treatment Not on filedocumented as of this encounter Visit Diagnoses Not on filedocumented in this encounter
--- OUTSIDE RECORDS SUMMARY | 2022-05-06 13:13 | XMS_ITS | Encounter Summary ---
:1935 Author Organization [facility] Address [address] [place] [address] Care Team Providers Name Role Phone Unavailable Primary Care Provider Unavailable Encounter Details Date Type Department Care Team Description 03/05/2012 Hospital Encounter HX [facility] Albania Varma AP RN, C.N.P., D.N.P. [address] [phone] (Wo rk) Social History Tobacco Use [...] encounter Progress Notes Bianca Villalobos, P.T. - 03/19/2012 12:00 AM CDT [id number] CHIEF COMPLAINT/REASON FOR VISIT Patient comes into physical therapy today with complaints of vertigo. She has had positional vertigo in the past approximately one year ago and feels she is having an episode of this again. The patient reports her symptoms began with congestion, lightheadedness, and dizziness. She decided to lie down and take a nap. She rolled to her right side when getting out of bed and had a sensation of spinning and increase dizziness. She has had any not nausea or vomiting yet. She has not taken anything for the dizziness at this time. PHYSICAL EXAMINATION We did assess that her cervical range of motion is within functional limits to do the testing. Vertebral artery testing was negative. Hallpike Berlin test was positive for right posterior canal. Patient will be treated for positional vertigo. PATIENT EDUCATION Ready to learn No apparent learning barriers were identified Learning preferences include listening Explained diagnosis and treatment plan Patient/Child/Caregiver expressed understanding of the content IMPRESSION/REPORT/PLAN We initiated SOCIAL WORK NURSE maneuvers for the right posterior canal. We performed them x3 repetitions symptomatic improvement with each repetition. Patient was given precautions for home as this is her second occurrence of this within the last year. Her precautions will be to sleep in semi-upright position preferably 45 degrees for the next two nights, to avoid lying on the right side for one week, and to avoid vertical head movements for one week. Horizontal head movements may be performed but in slowed motion. Patient was given a written handout with all of these instructions. She was also given instructions on the SOCIAL WORK NURSE maneuvers if they should have to perform them on their own as they are leaving for vacation tomorrow. She is also given Uribe-Daroff exercises as another option for home treatment. Patient was instructed on both. Patient was also given all contact information to reach us if need be. Patient tolerated the with symptom reproduction. Patient Goal: Patient will be symptom free in one to three weeks. Plan of Care: SOCIAL WORK NURSE maneuvers and home instruction, possible home program if needed. Plan to see patient one to three times per week for up to three weeks as needed for symptom resolution. Bianca Villalobos D.P.T. /joby Electronically Signed By: BIANCA VILLALOBOS On: 04/07/2012 02:01 PM Co-Signed By: ALBANIA VARMA RN, MARKETING SERVICES MANAGER On: 04/07/2012 04:16 PM Source: [facility] MHSDOLBEYNONRADSYS Document Id: [id number] documented in this encounter Miscellaneous Notes Miscellaneous - Albania Varma APRN, C.N.P. - 03/05/2012 11:08 AM CDT Results Notification Document Contains Addenda Addendum by BRIANA TOVAR LPN on 05 March 2012 13:25:39 CDT Pt informed. From: ALBANIA VARMA RN, MARKETING SERVICES MANAGER To: BRIANA TOVAR LPN; Sent: 03/05/2012 11:08:01 AM CDT Show up: 03/05/2012 11:08:00 AM CDT Subject: Results Notification please let her know sodium is stable and in normal range. Results: Date Result Name Value Ref Range 03/05/2012 9:45 AM Sodium Lvl 135.5 mM/L (135.0 - 145.0) Source: [facility] POWERCHART Document Id: [id number] documented in this encounter Plan of Treatment Not on filedocumented as of this encounter Procedures Procedure Name Priority Date/Time Associated Diagnosis Comme nts SODIUM, S/P Routine 03/05/2012 9:45 AM Results f or this CDT procedure are i n the results section . documented in this encounter Results Sodium (03/05/2012 9:45 AM CDT) P athologist Signature Sodium, S 135.5 135.0 - POWERCHART 145.0 MML Specimen (Source) Anatomical Collection Method Collection Time Re ceived Time Location / / Volume Laterality Blood 03/05/2012 9:45 AM CDT Albania Varma APRN, C.N.PDann, D.N.P. LAB BLOOD ADD-ON Performing Organization Address City/State/ZIP Code Phon e Number POWERCHART documented in this encounter Visit Diagnoses Not on filedocumented in this encounter
--- OUTSIDE RECORDS SUMMARY | 2022-05-06 13:13 | XMS_ITS | Encounter Summary ---
:1935 Author Organization [facility] Address [address] [place] [address] Care Team Providers Name Role Phone Unavailable Primary Care Provider Unavailable Encounter Details Date Type Department Care Team Description 08/02/2012 Hospital Encounter HX [facility] Albania Varma, CYRIL, C.N.P., D. N.P. [address] [place] [address] (Wo rk) Social History Tobacco [...] of this encounter Miscellaneous Notes Miscellaneous - Jeronimo Tomlinson RDannNDann - 09/29/2012 10:01 AM CST General Message Document Contains Addenda Addendum by JERONIMO LAINEZ RN on 29 September 2012 16:03:57 OVERHEAD DOOR TECHNICIAN [facility] [place] Pharmacist stated that although 3 refills were written, they would only be able to supply 1 due to the D it is considered a controlled substance. Addendum by ALBANIA VARMA RN, WHEEL PRESS OPERATOR on 29 September 2012 15:15:46 OVERHEAD DOOR TECHNICIAN From: ALBANIA VARMA RN, WHEEL PRESS OPERATOR To: JERONIMO LAINEZ RN; Sent: 09/29/2012 15:15:46 OVERHEAD DOOR TECHNICIAN Subject: RE: General Message please fax script. Thanks Addendum by ALBANIA VARMA RN, IVANA on 29 September 2012 15:15:33 OVERHEAD DOOR TECHNICIAN Submitted: Order Order: fexofenadine-pseudoephedrine (Elzbieta-D 12 Hour 60 mg-120 mg oral tablet, extended release) 1tab(s) PO 2xDay Qty: 180 tab(s) Refills: 3 Substitutions Allowed Print - [facility] (from [id number]) in session 32 Signed by ALBANIA VARMA RN, WHEEL PRESS OPERATOR Addendum by JERONIMO LAINEZ RN on 29 September 2012 10:08:19 OVERHEAD DOOR TECHNICIAN From: JERONIMO LAINEZ RN To: ALBANIA VARMA RN, WHEEL PRESS OPERATOR; Sent: 09/29/2012 10:08:19 OVERHEAD DOOR TECHNICIAN Subject: FW: General Message Kathryn called and left a message stating she'd like this to go to [facility] in [place] instead. From: JERONIMO LAINEZ RN To: ALBANIA VARMA RN, WHEEL PRESS OPERATOR; Sent: 09/29/2012 10:01:47 OVERHEAD DOOR TECHNICIAN Subject: General Message Caller is: (X ) Patient S:Pt wants rx for Elzbieta D B:Pt uses elzbieta D 60 mg BID. She does not like it when she buys it OTC that she can only buy on box at a time and that she has to show ID to make this purchase. Would like a presciption for 90 day supply sent to [facility]. R:Please approve this request if you agree Source: [facility] POWERCHART Document Id: [id number] Electronically signed by Conversion, [facility] Devops Engineer [id number] at 02/15/2017 6:03 AM CDT documented in this encounter Plan of Treatment Not on filedocumented as of this encounter Visit Diagnoses Not on filedocumented in this encounter
--- OUTSIDE RECORDS SUMMARY | 2022-05-06 13:13 | XMS_ITS | Encounter Summary ---
:1935 Author Organization [facility] Address [address] [place] [address] Care Team Providers Name Role Phone Unavailable Primary Care Provider Unavailable Encounter Details Date Type Department Care Team Description 07/29/2011 Hospital Encounter HX [facility] Albania Varma APRN, C.N.P., D. N.P. [address] [place] [phone] (Wo rk) Social History Tobacco [...] Progress Notes Albania Varma APRN, C.N.P. - 07/29/2011 12:00 AM CST [id number] CHIEF COMPLAINT/REASON FOR VISIT 1. Rash. HISTORY OF PRESENT ILLNESS 1. Briana is a very pleasant 76-year-old female who comes in today with a rash that she has on her left abdominal area as well as in her groin area. She states that she has had this come and go off and on for years and she usually uses antibiotic ointment and it will resolve on its own. Unfortunately this time it seems to be getting worse and she has actually noticed it to be somewhat weeping. She cannot recall it starting as a blistering sensation. She has it on both of her groin folds. It is not in the vaginal area, but then on the abdominal fold. She states it is most irritating as it is where her underwear lies. She reports it as a burning type sensation. CURRENT MEDICATIONS Please see the EMR for those details. ALLERGIES Glutens and nuts. VITAL SIGNS Please see EMR for those details. PHYSICAL EXAMINATION GENERAL: Patient appears nondistressed. SKIN: On her left abdominal area, she has about a 3 cm length erythremic area that does have some slight oozing noted. It is very that there are a few papules noted. Also very similar symptoms in her groin folds bilaterally not extending into her vaginal area. IMPRESSION/REPORT/PLAN 1. Candidus. This is consistent with candidus of the skin. We will go ahead and place her nystatin cream. She is to use three to four times a day for the next 10 days. She will report if no improvement or any worsening symptoms. PATIENT EDUCATION: Ready to learn No apparent learning barriers were identified Learning preferences include listening Explained diagnosis and treatment plan Patient/Child/Caregiver expressed understanding of the content Albania Varma N.P. /joby Electronically Signed By: ALBANIA VARMA RN, BOOTS AND SHOES SUPERVISOR On: 08/05/2011 04:59 AM Source: [facility] MHSDOLBEYNONRADSYS Document Id: [id number] OLOGIC TECHNOLOGIST CHIEF documented in this encounter Miscellaneous Notes Miscellaneous - Albania Varma APRN, C.N.P. - 07/29/2011 2:52 PM CST Ambulatory Patient Summary [address] [place] [address] Visit Information Name: BRIANA LEON Current Date: 07/29/2011 14:52:37 Primary Care Provider: ALBANIA VARMA RN, BOOTS AND SHOES SUPERVISOR Your Medications Here is a list of your medications. It is important to take your medications as directed. Use a pillbox or chart to help remind you to take your medications. Please let your doctor or nurse know if you have problems taking your medications. Medication/Strength Dose Route Frequency Indications/Special Instructions/Comments nystatin topical (nystatin topical 100,000 units/g cream) 1 tj Topical four times a day for 10 Days omeprazole (omeprazole) 40 mg Oral once [...] [facility] POWERCHART Document Id: [id number] OLOGIC TECHNOLOGIST CHIEF Miscellaneous - Albania Varma APRN, C.N.P. - 07/29/2011 2:52 PM CST Ambulatory Depart Summary [address] [place] [address] Visit Information Name: BRIANA LEON Current Date: 07/29/2011 14:52:36 Primary Care Provider: ALBANIA VARMA RN, BOOTS AND SHOES SUPERVISOR BRIANA LEON has been given the following list of medications: Your Medications It is important to take your medications as directed. Use a pill box or chart to help remind you to take your medications. Please let your doctor or nurse know if you have problems taking your medications. Medication/Strength Dose Route Frequency Indications/Special Instructions/Comments nystatin topical (nystatin topical 100,000 units/g cream) 1 tj Topical four times a day for 10 Days omeprazole (omeprazole) 40 mg Oral once [...] [facility] POWERCHART Document Id: [id number] OLOGIC TECHNOLOGIST CHIEF Miscellaneous - Jessie Chapa LDannP.N. 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 Intake/History Entered On: 07/29/2011 14:21 RADIOLOGIC TECHNOLOGIST CHIEF Performed On: 07/29/2011 14:17 RADIOLOGIC TECHNOLOGIST CHIEF by JESSIE WEBB LPN Intake Chief Complaint : rash on bottom Temperature Core : 36.5C(Converted to: 97.7DegF) Peripheral Pulse Rate : 72/min Respiratory Rate : 18/min Systolic Blood Pressure : 122mmHg Diastolic Blood Pressure : 64mmHg NIBP Mean : 83mmHg BP Location : Left upper extremity Heart Rhythm : Regular Actual Weight : 75.4kg(Converted to: 166lb 4oz) Weight Source : Standing scale Dosing Weight Clinic : 75.40kg JESSIE WEBB LPN - 07/29/2011 14:17 RADIOLOGIC TECHNOLOGIST CHIEF Subjective Pain Symptoms : No JESSIE WEBB LPN - 07/29/2011 14:17 RADIOLOGIC TECHNOLOGIST CHIEF Dependent Habits Tobacco Use/Currently Using : No Smoking Status : Never smoker Alcohol Use : Yes JESSIE WEBB LPN - 07/29/2011 14:17 RADIOLOGIC TECHNOLOGIST CHIEF Caffeine Use Grid Caffeine Use : Current Type : Coffee Frequency : Weekly JESSIE WEBB LPN - 07/29/2011 14:17 RADIOLOGIC TECHNOLOGIST CHIEF Recreational Drug Use Grid Drug Use : None JESSIE WEBB LPN - 07/29/2011 14:17 RADIOLOGIC TECHNOLOGIST CHIEF Allergy Allergies (Active) Glutens Estimated Onset Date: Unspecified ; Created By: PATTI ALMENDAREZ LPN; Reaction Status: Active; Category: Drug ; Substance: Glutens ; Type: Allergy ; Updated By: PATTI ALMENDAREZ LPN; Reviewed Date: 04/07/2011 14:44 CDT Nuts Estimated Onset Date: Unspecified ; Created By: PATTI ALMENDAREZ LPN; Reaction Status: Active ; Category: Food ; Substance: Nuts ; Type: Allergy ; Updated By: PATTI ALMENDAREZ LPN; Reviewed Date: 04/07/2011 14:44 CDT Source: [facility] POWERCHART Document Id: [id number] RADIOLOGIC TECHNOLOGIST CHIEF!28 OLOGIC TECHNOLOGIST CHIEF documented in this encounter Plan of Treatment Not on filedocumented as of this encounter Visit Diagnoses Not on filedocumented in this encounter
--- OUTSIDE RECORDS SUMMARY | 2022-05-06 13:14 | XMS_ITS | Encounter Summary ---
:1935 Author Organization [facility] Address [address] [place] [address] Care Team Providers Name Role Phone Unavailable Primary Care Provider Unavailable Encounter Details Date Type Department Care Team Description 02/19/2010 - Hospital Encounter HX [facility] Luke Pacheco, 02/22/2010 INPT/OBSRV M.DDann [address] [facility] [place], [address] [address] Social History Tobacco Use Types Packs/Day Years Used Date Smoking Tobacco: Never Assessed Sex Assigned at Date Recorded Not on file documented as of this encounter Plan of Treatment Not on filedocumented as of this encounter Visit Diagnoses Not on filedocumented in this encounter
--- OUTSIDE RECORDS SUMMARY | 2022-05-06 13:14 | XMS_ITS | Encounter Summary ---
:1935 Author Organization [facility] Address [address] [place] [address] Care Team Providers Name Role Phone Unavailable Primary Care Provider Unavailable Encounter Details Date Type Department Care Team Description 06/27/2010 Hospital Encounter HX [facility] Provider, Historical INPT/OBSRV Social History Tobacco Use Types Packs/Day Years Used Date Smoking Tobacco: Never Assessed Sex Assigned at Date Recorded Not on file documented as of this encounter Plan of Treatment Not on filedocumented as of this encounter Visit Diagnoses Not on filedocumented in this encounter
--- OUTSIDE RECORDS SUMMARY | 2022-05-06 13:14 | XMS_ITS | Encounter Summary ---
:1935 Author Organization [facility] Address [address] [place] [address] Care Team Providers Name Role Phone Unavailable Primary Care Provider Unavailable Encounter Details Date Type Department Care Team Description 08/21/2010 - Hospital Encounter HX [facility] Mary Veronica, 09/11/2010 INPT/OBSRV CYRIL, C.N.P., D.N.P. [address] [place] [address] Social History Tobacco Use Types Packs/Day Years Used Date Smoking Tobacco: Never Assessed Sex Assigned at Date Recorded Not on file documented as of this encounter Plan of Treatment Not on filedocumented as of this encounter Visit Diagnoses Not on filedocumented in this encounter
--- OUTSIDE RECORDS SUMMARY | 2022-05-06 13:14 | XMS_ITS | Encounter Summary ---
:1935 Author Organization [facility] Address [address] [place] [address] Care Team Providers Name Role Phone Unavailable Primary Care Provider Unavailable Encounter Details Date Type Department Care Team Description 05/16/2010 - Hospital Encounter [facility] Mary Veronica, 06/11/2010 INPT/OBSRV CYRIL, C.N.P., D.N.P. [address] [place] [phone] Social History Tobacco Use Types Packs/Day Years Used Date Smoking Tobacco: Never Assessed Sex Assigned at Date Recorded Not on file documented as of this encounter Plan of Treatment Not on filedocumented as of this encounter Visit Diagnoses Not on filedocumented in this encounter
--- OUTSIDE RECORDS SUMMARY | 2022-05-06 13:14 | XMS_ITS | Encounter Summary ---
:1935 Author Organization [facility] Address [address] [place] [address] Care Team Providers Name Role Phone Unavailable Primary Care Provider Unavailable Encounter Details Date Type Department Care Team Description 02/12/2010 Hospital Encounter HX NO MAPPING Jose Reynolds M.D. [address] [place] [phone] (Wo rk) Social History Tobacco Use Types Packs/Day Years Used Date Smoking Tobacco: Never Assessed Sex Assigned at Date Recorded Not on file documented as of this encounter Plan of Treatment Not on filedocumented as of this encounter Visit Diagnoses Not on filedocumented in this encounter
--- OUTSIDE RECORDS SUMMARY | 2022-05-06 13:14 | XMS_ITS | Encounter Summary ---
:1935 Author Organization [facility] Address [address] [place] [address] Care Team Providers Name Role Phone Unavailable Primary Care Provider Unavailable Encounter Details Date Type Department Care Team Description 10/23/2010 Hospital Encounter HX NO MAPPING Skylar Brush M.D. [address] [place] [address] (Wo rk) Social History Tobacco Use Types Packs/Day Years Used Date Smoking Tobacco: Never Assessed Sex Assigned at Date Recorded Not on file documented as of this encounter Miscellaneous Notes Miscellaneous - Seda Villavicencio - 02/22/2014 7:19 AM CDT Custom Result Letter 22 February 2014 BRIANA LEON [address] [facility] [id number] Dear BRIANA LEON, Our records indicate that you are due for your Colorectal Screening. Please contact your primary care team at [phone] to discuss the best screening option for you. If you have already made an appointment for this or have had the procedure done, please disregard this notice. We look forward to seeing you soon. From the office of Wm. Wayne Green M.D., Gastroenterology Department. Sincerely, SEDA FULTON Electronic Signature Electronically Signed By: SEDA FULTON On: 22 February 2014 This document has images extracted. Source: [facility] POWERCHART Document Id: [id number] documented in this encounter Plan of Treatment Not on filedocumented as of this encounter Visit Diagnoses Not on filedocumented in this encounter
--- OUTSIDE RECORDS SUMMARY | 2022-05-06 13:14 | XMS_ITS | Encounter Summary ---
:1935 Author Organization [facility] Address [address] [place] [address] Care Team Providers Name Role Phone Unavailable Primary Care Provider Unavailable Encounter Details Date Type Department Care Team Description 01/29/2010 Hospital Encounter HX [facility] INPT/OBSRV Diamond Reynolds M.D. [address] [place] [phone] (Wo rk) Social History Tobacco Use Types Packs/Day Years Used Date Smoking Tobacco: Never Assessed Sex Assigned at Date Recorded Not on file documented as of this encounter Plan of Treatment Not on filedocumented as of this encounter Visit Diagnoses Not on filedocumented in this encounter
--- OUTSIDE RECORDS SUMMARY | 2022-05-06 13:14 | XMS_ITS | Encounter Summary ---
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 Source: [facility] RWHXTRANSXRTFSYS Document Id: [id number] documented in this encounter Plan of Treatment Not on filedocumented as of this encounter Visit Diagnoses Not on filedocumented in this encounter
--- OUTSIDE RECORDS SUMMARY | 2022-05-06 13:14 | XMS_ITS | Encounter Summary ---
:1935 Author Organization [facility] Address [address] [place] [address] Care Team Providers Name Role Phone Unavailable Primary Care Provider Unavailable Encounter Details Date Type Department Care Team Description 03/04/2010 Hospital Encounter HX [facility] Provider, [facility] Social History Tobacco Use Types Packs/Day Years Used Date Smoking Tobacco: Never Assessed Sex Assigned at Date Recorded Not on file documented as of this encounter Miscellaneous Notes Miscellaneous - Conversion, Historical Provider Ser - 03/04/2010 12:00 AM CDT [id number] Kathryn Leon [address] [facility] [address] [facility] [phone] [place] March 07, 2010 Dear Kathryn Mayenz: Our records indicate that you are due for a Colonoscopy. This is the best test available to detect colon cancer. Please call us to make an appointment at your convenience. Our telephone number for scheduling an appointment is [phone]. If you have already made an appointment for this or have had the proceduredone, please disregard this notice. We look forward to seeing you soon. Sincerely, Edgar Harry M.D. Internal Medicine Department [facility] Source: [facility] Document Id: [id number] Telephone Encounter - Conversion, Historical Provider Ser - 03/04/2010 12:00 AM CDT [id number] Could you please review this patient's information? Does not look like she is seen here but do you want to order test and we will contact pt? Source: [facility] Document Id: [id number] Telephone Encounter - Mark Green M.D. - 03/04/2010 12:00 AM CDT [id number] Yep, contact her. Colonoscopy ordered, though not the prep. (I would presume Miralax prep at [facility], but would wait until she contacts us.) Source: [facility]kinetic DesignsSXRTFPlan Me Up Document Id: [id number] Telephone Encounter - Conversion, Historical Provider Ser - 03/04/2010 12:00 AM CDT [id number] Please attempt to contact her and reminder her she is due for a colonoscopy, also ask her where she would like her prep called into. Source: [facility]SXRXYDO Document Id: [id number] Telephone Encounter - Conversion, Historical Provider Ser - 03/04/2010 12:00 AM CDT [id number] Pt called. Unidentifiable voice mail. Please send a reminder letter regarding colonoscopy. Source: [facility]CVRxSXRTFBooking Angel Document Id: [id number] Telephone Encounter - Conversion, Historical Provider Ser - 03/04/2010 12:00 AM CDT [id number] Letter sent Source: [facility]ENTERDevkin[facility] DesignsSXRVIPorbit SoftwareR[facility] Document Id: [id number] documented in this encounter Plan of Treatment Not on filedocumented as of this encounter Visit Diagnoses Not on filedocumented in this encounter
--- OUTSIDE RECORDS SUMMARY | 2022-05-06 13:14 | XMS_ITS | Encounter Summary ---
:1935 Author Organization [facility] Address [address] [place] [address] Care Team Providers Name Role Phone Unavailable Primary Care Provider Unavailable Encounter Details Date Type Department Care Team Description 12/30/2009 Hospital Encounter HX [facility] Jordi Villarreal, INPT/OBSRV M.D. [address] [place] [phone] (Wo rk) Social History Tobacco Use Types Packs/Day Years Used Date Smoking Tobacco: Never Assessed Sex Assigned at Date Recorded Not on file documented as of this encounter Plan of Treatment Not on filedocumented as of this encounter Visit Diagnoses Not on filedocumented in this encounter
--- OUTSIDE RECORDS SUMMARY | 2022-05-06 13:14 | XMS_ITS | Encounter Summary ---
:1935 Author Organization [facility] Address [address] [place] [address] Care Team Providers Name Role Phone Unavailable Primary Care Provider Unavailable Encounter Details Date Type Department Care Team Description 06/26/2010 Hospital Encounter [facility] INPT/OBSRV Harriet Cortez, CYRIL, C.N.P., D.N.P. [address] [place] [phone] (Wo rk) Social History Tobacco Use Types Packs/Day Years Used Date Smoking Tobacco: Never Assessed Sex Assigned at Date Recorded Not on file documented as of this encounter Plan of Treatment Not on filedocumented as of this encounter Visit Diagnoses Not on filedocumented in this encounter
--- OUTSIDE RECORDS SUMMARY | 2022-05-06 13:14 | XMS_ITS | Encounter Summary ---
:1935 Author Organization [facility] Address [address] [place] [address] Care Team Providers Name Role Phone Unavailable Primary Care Provider Unavailable Encounter Details Date Type Department Care Team Description 01/28/2010 - Hospital Encounter HX [facility] Mary Veronica, 02/08/2010 INPT/OBSRV CYRIL, C.N.P., D.N.P. [address] [place] [phone] Social History Tobacco Use Types Packs/Day Years Used Date Smoking Tobacco: Never Assessed Sex Assigned at Date Recorded Not on file documented as of this encounter Plan of Treatment Not on filedocumented as of this encounter Visit Diagnoses Not on filedocumented in this encounter
--- OUTSIDE RECORDS SUMMARY | 2022-05-06 13:14 | XMS_ITS | Encounter Summary ---
:1935 Author Organization [facility] Address [address] [place] [address] Care Team Providers Name Role Phone Unavailable Primary Care Provider Unavailable Encounter Details Date Type Department Care Team Description 01/03/2010 Hospital Encounter HX [facility] Jordi Villarreal, INPT/OBSRV M.D. [address] [place] [phone] (Wo rk) Social History Tobacco Use Types Packs/Day Years Used Date Smoking Tobacco: Never Assessed Sex Assigned at Date Recorded Not on file documented as of this encounter Plan of Treatment Not on filedocumented as of this encounter Visit Diagnoses Not on filedocumented in this encounter
--- OUTSIDE RECORDS SUMMARY | 2022-05-06 13:14 | XMS_ITS | Encounter Summary ---
:1935 Author Organization [facility] Address [address] [place] [address] Care Team Providers Name Role Phone Unavailable Primary Care Provider Unavailable Encounter Details Date Type Department Care Team Description 02/15/2010 Hospital Encounter HX NO MAPPING Social History Tobacco Use Types Packs/Day Years Used Date Smoking Tobacco: Never Assessed Sex Assigned at Date Recorded Not on file documented as of this encounter Plan of Treatment Not on filedocumented as of this encounter Visit Diagnoses Not on filedocumented in this encounter
--- OUTSIDE RECORDS SUMMARY | 2022-05-06 13:14 | XMS_ITS | Encounter Summary ---
:1935 Author Organization [facility] Address [address] [place] [address] Care Team Providers Name Role Phone Unavailable Primary Care Provider Unavailable Encounter Details Date Type Department Care Team Description 01/29/2010 Hospital Encounter HX NO MAPPING Jose Reynolds M.D. [address] [place] [phone] (Wo rk) Social History Tobacco Use Types Packs/Day Years Used Date Smoking Tobacco: Never Assessed Sex Assigned at Date Recorded Not on file documented as of this encounter Plan of Treatment Not on filedocumented as of this encounter Visit Diagnoses Not on filedocumented in this encounter
--- OUTSIDE RECORDS SUMMARY | 2022-05-06 13:14 | XMS_ITS | Encounter Summary ---
:1935 Author Organization [facility] Address [address] [place] [address] Care Team Providers Name Role Phone Unavailable Primary Care Provider Unavailable Encounter Details Date Type Department Care Team Description 02/25/2010 Hospital Encounter HX [facility] INPT/OBSRV Harriet Cortez, CYRIL, C.N.P., D.N.P. [address] [place] [phone] (Wo rk) Social History Tobacco Use Types Packs/Day Years Used Date Smoking Tobacco: Never Assessed Sex Assigned at Date Recorded Not on file documented as of this encounter Plan of Treatment Not on filedocumented as of this encounter Visit Diagnoses Not on filedocumented in this encounter
--- OUTSIDE RECORDS SUMMARY | 2022-05-06 13:14 | XMS_ITS | Encounter Summary ---
:1935 Author Organization [facility] Address [address] [place] [address] Care Team Providers Name Role Phone Unavailable Primary Care Provider Unavailable Encounter Details Date Type Department Care Team Description 02/15/2010 - 02/19/2010 Hospital Encounter HX [facility] BRIANA WEBBER 9E Social History Tobacco Use Types Packs/Day Years Used Date Smoking Tobacco: Never Assessed Sex Assigned at Date Recorded Not on file documented as of this encounter Plan of Treatment Not on filedocumented as of this encounter Procedures Procedure Name Priority Date/Time Associated Diagnosis Comme nts FL FLUORO MORE THAN Routine 02/15/2010 6:27 PM Re sults for this 1 HOUR CDT procedure are i n the results section. documented in this encounter Results FL Fluoro More Than 1 Hour (02/15/2010 6:27 PM CDT) Anatomical Region Laterality Modality Radiographic Imaging Specimen (Source) Anatomical Collection Method Collection Time Re ceived Time Location / / Volume Laterality 02/15/2010 6:27 PM CDT Narrative 02/16/2010 7:52 AM CDT 15-Feb-2010 18:27:00 ??Exam: Fluoro Assistance greater >1hr Indications: OR 206, Neuro, L3-5 laminec amanda w/ diskectomy REVISED REPORT - 16-Feb-2010 07:52:00 Mobile image intensifier used. Electronically signed by: ?? Pawel Uriarte MD. ??[id number] 16-Feb-2010 07: 52 Procedure Note Isreal Uriarte M.D. - 12/13/2017Format ting of this note might be different from the original. 15-Feb-2010 18:27:00 Exam: Fluoro Assist ance greater >1hr Indications: OR 206, Neuro, L3-5 laminec amanda w/ diskectomy REVISED REPORT - 16-Feb-2010 07:52:00 Mobile image intensifier used. Electronically signed by: Pawel Uriarte MD. [id number] 16-Feb-2010 07:52 Erick LLANES FLUOROSCOPY PROCEDURES documented in this encounter Visit Diagnoses Not on filedocumented in this encounter
--- OUTSIDE RECORDS SUMMARY | 2022-05-06 13:14 | XMS_ITS | Encounter Summary ---
:1935 Author Organization [facility] Address [address] [place] [address] Care Team Providers Name Role Phone Unavailable Primary Care Provider Unavailable Encounter Details Date Type Department Care Team Description 02/12/2010 Hospital [facility] IN[facility]OBSRV Diamond Reynolds M.D. [address] [place] [phone] (Wo rk) Social History Tobacco Use Types Packs/Day Years Used Date Smoking Tobacco: Never Assessed Sex Assigned at Date Recorded Not on file documented as of this encounter Plan of Treatment Not on filedocumented as of this encounter Visit Diagnoses Not on filedocumented in this encounter
--- OUTSIDE RECORDS SUMMARY | 2022-05-06 13:14 | XMS_ITS | Encounter Summary ---
:1935 Author Organization [facility] Address [address] [place] [address] Care Team Providers Name Role Phone Unavailable Primary Care Provider Unavailable Encounter Details Date Type Department Care Team Description 04/16/2010 Hospital Encounter [facility] INPT/OBSRV Harriet Cortez, CYRIL, C.N.P., D.N.P. [address] [place] [phone] (Wo rk) Social History Tobacco Use Types Packs/Day Years Used Date Smoking Tobacco: Never Assessed Sex Assigned at Date Recorded Not on file documented as of this encounter Plan of Treatment Not on filedocumented as of this encounter Visit Diagnoses Not on filedocumented in this encounter
--- OUTSIDE RECORDS SUMMARY | 2022-05-06 13:14 | XMS_ITS | Encounter Summary ---
:1935 Author Organization [facility] Address [address] [place] [address] Care Team Providers Name Role Phone Unavailable Primary Care Provider Unavailable Encounter Details Date Type Department Care Team Description 08/06/2010 Hospital Encounter [facility] INPT/OBSRV Harriet Cortez, CYRIL, C.N.P., D.N.P. [address] [place] [phone] (Wo rk) Social History Tobacco Use Types Packs/Day Years Used Date Smoking Tobacco: Never Assessed Sex Assigned at Date Recorded Not on file documented as of this encounter Plan of Treatment Not on filedocumented as of this encounter Visit Diagnoses Not on filedocumented in this encounter
--- OUTSIDE RECORDS SUMMARY | 2022-05-06 13:14 | XMS_ITS | Encounter Summary ---
:1935 Author Organization [facility] Address [address] [place] [address] Care Team Providers Name Role Phone Unavailable Primary Care Provider Unavailable Encounter Details Date Type Department Care Team Description 07/17/2010 - Hospital Encounter [facility] Mary Veronica, 08/13/2010 INPT/OBSRV CYRIL, C.N.P., D.N.P. [address] [place] [phone] Social History Tobacco Use Types Packs/Day Years Used Date Smoking Tobacco: Never Assessed Sex Assigned at Date Recorded Not on file documented as of this encounter Plan of Treatment Not on filedocumented as of this encounter Visit Diagnoses Not on filedocumented in this encounter
--- OUTSIDE RECORDS SUMMARY | 2022-05-06 13:14 | XMS_ITS | Encounter Summary ---
:1935 Author Organization [facility] Address [address] [place] [address] Care Team Providers Name Role Phone Unavailable Primary Care Provider Unavailable Encounter Details Date Type Department Care Team Description 01/23/2010 Hospital Encounter [facility] INPT/OBSRV Harriet Cortez, CYRIL, C.N.P., D.N.P. [address] [place] [phone] (Wo rk) Social History Tobacco Use Types Packs/Day Years Used Date Smoking Tobacco: Never Assessed Sex Assigned at Date Recorded Not on file documented as of this encounter Plan of Treatment Not on filedocumented as of this encounter Visit Diagnoses Not on filedocumented in this encounter
--- OUTSIDE RECORDS SUMMARY | 2022-05-06 13:14 | XMS_ITS | Encounter Summary ---
:1935 Author Organization [facility] Address [address] [place] [address] Care Team Providers Name Role Phone Unavailable Primary Care Provider Unavailable Encounter Details Date Type Department Care Team Description 01/04/2010 Hospital Encounter [facility] Jordi Villarreal, INPT/OBSRV M.D. [address] [place] [phone] (Wo rk) Social History Tobacco Use Types Packs/Day Years Used Date Smoking Tobacco: Never Assessed Sex Assigned at Date Recorded Not on file documented as of this encounter Plan of Treatment Not on filedocumented as of this encounter Visit Diagnoses Not on filedocumented in this encounter
--- OUTSIDE RECORDS SUMMARY | 2022-05-06 13:14 | XMS_ITS | Encounter Summary ---
:1935 Author Organization [facility] Address [address] [place] [address] Care Team Providers Name Role Phone Unavailable Primary Care Provider Unavailable Encounter Details Date Type Department Care Team Description 01/14/2010 Hospital Encounter [facility] INPT/OBSRV Chu Kendrick M.D. [address] [place] [address] (Wo rk) Social History Tobacco Use Types Packs/Day Years Used Date Smoking Tobacco: Never Assessed Sex Assigned at Date Recorded Not on file documented as of this encounter Plan of Treatment Not on filedocumented as of this encounter Visit Diagnoses Not on filedocumented in this encounter
--- OUTSIDE RECORDS SUMMARY | 2022-05-06 13:14 | XMS_ITS | Encounter Summary ---
:1935 Author Organization [facility] Address [address] [place] [address] Care Team Providers Name Role Phone Unavailable Primary Care Provider Unavailable Encounter Details Date Type Department Care Team Description 06/19/2010 - Hospital Encounter [facility] Mary Cortez, 07/09/2010 INPT/OBSRV CYRIL, C.N.P., D.N.P. [address] [place] [phone] Social History Tobacco Use Types Packs/Day Years Used Date Smoking Tobacco: Never Assessed Sex Assigned at Date Recorded Not on file documented as of this encounter Plan of Treatment Not on filedocumented as of this encounter Visit Diagnoses Not on filedocumented in this encounter
--- OUTSIDE RECORDS SUMMARY | 2022-05-06 13:14 | XMS_ITS | Encounter Summary ---
:1935 Author Organization [facility] Address [address] [place] [address] Care Team Providers Name Role Phone Unavailable Primary Care Provider Unavailable Encounter Details Date Type Department Care Team Description 05/22/2010 Hospital Encounter [facility] INPT/OBSRV Harriet Cortez, CYRIL, C.N.P., D.N.P. [address] [place] [phone] (Wo rk) Social History Tobacco Use Types Packs/Day Years Used Date Smoking Tobacco: Never Assessed Sex Assigned at Date Recorded Not on file documented as of this encounter Plan of Treatment Not on filedocumented as of this encounter Visit Diagnoses Not on filedocumented in this encounter
--- OUTSIDE RECORDS SUMMARY | 2022-05-06 13:14 | XMS_ITS | Encounter Summary ---
:1935 Author Organization [facility] Address [address] [place] [address] Care Team Providers Name Role Phone Unavailable Primary Care Provider Unavailable Encounter Details Date Type Department Care Team Description 08/14/2010 Hospital Encounter [facility] INPT/OBSRV Harriet Cortez, CYRIL, C.N.P., D.N.P. [address] [place] [phone] (Wo rk) Social History Tobacco Use Types Packs/Day Years Used Date Smoking Tobacco: Never Assessed Sex Assigned at Date Recorded Not on file documented as of this encounter Plan of Treatment Not on filedocumented as of this encounter Visit Diagnoses Not on filedocumented in this encounter
--- OUTSIDE RECORDS SUMMARY | 2022-05-06 13:14 | XMS_ITS | Encounter Summary ---
:1935 Author Organization [facility] Address [address] [place] [address] Care Team Providers Name Role Phone Unavailable Primary Care Provider Unavailable Encounter Details Date Type Department Care Team Description 04/16/2010 - Hospital Encounter [facility] Mary Veronica, 05/13/2010 INPT/OBSRV CYRIL, C.N.P., D.N.P. [address] [place] [phone] Social History Tobacco Use Types Packs/Day Years Used Date Smoking Tobacco: Never Assessed Sex Assigned at Date Recorded Not on file documented as of this encounter Plan of Treatment Not on filedocumented as of this encounter Visit Diagnoses Not on filedocumented in this encounter
--- OUTSIDE RECORDS SUMMARY | 2022-05-06 13:14 | XMS_ITS | Encounter Summary ---
:[address] [facility] Address [address] [place] [address] Care Team Providers Name Role Phone Unavailable Primary Care Provider Unavailable Encounter Details Date Type Department Care Team Description 03/07/2010 Hospital Encounter [facility] INPT/OBSRV Harriet Cortez, CYRIL, C.N.P., D.N.P. [address] [place] [phone] (Wo rk) Social History Tobacco Use Types Packs/Day Years Used Date Smoking Tobacco: Never Assessed Sex Assigned at Date Recorded Not on file documented as of this encounter Plan of Treatment Not on filedocumented as of this encounter Visit Diagnoses Not on filedocumented in this encounter
--- OUTSIDE RECORDS SUMMARY | 2022-05-06 13:14 | XMS_ITS | Encounter Summary ---
:1935 Author Organization [facility] Address [address] [place] [address] Care Team Providers Name Role Phone Unavailable Primary Care Provider Unavailable Encounter Details Date Type Department Care Team Description 03/07/2010 Hospital Encounter [facility] INPT/OBSRV Harriet Cortez, CYRIL, C.N.P., D.N.P. [address] [place] [phone] (Wo rk) Social History Tobacco Use Types Packs/Day Years Used Date Smoking Tobacco: Never Assessed Sex Assigned at Date Recorded Not on file documented as of this encounter Plan of Treatment Not on filedocumented as of this encounter Visit Diagnoses Not on filedocumented in this encounter
--- OUTSIDE RECORDS SUMMARY | 2022-05-06 13:14 | XMS_ITS | Encounter Summary ---
:1935 Author Organization [facility] Address [address] [place] [address] Care Team Providers Name Role Phone Unavailable Primary Care Provider Unavailable Encounter Details Date Type Department Care Team Description 10/02/2010 Hospital Encounter [facility]X [facility] INPT/OBSRV Harriet Cortez, CYRIL, C.N.P., D.N.P. [address] [place] [phone] (Wo rk) Social History Tobacco Use Types Packs/Day Years Used Date Smoking Tobacco: Never Assessed Sex Assigned at Date Recorded Not on file documented as of this encounter Nursing Notes Ravindra Nieto, RDannN. - 11/01/2010 2:42 PM CST Protocol refill Recieved a fax from [facility] requesting refills of patient's flonase prescription. Authorized 30 day supply with 11 refills per protocol. Electronically Signed By: RAVINDRA NIETO RN On: 11/01/2010 02:43 Source: [facility] POWERCHART Document Id: [id number] [facility] OT documented in this encounter Plan of Treatment Not on filedocumented as of this encounter Visit Diagnoses Not on filedocumented in this encounter
--- OUTSIDE RECORDS SUMMARY | 2022-05-06 13:14 | XMS_ITS | Encounter Summary ---
:1935 Author Organization [facility] Address [address] [place] [address] Care Team Providers Name Role Phone Unavailable Primary Care Provider Unavailable Encounter Details Date Type Department Care Team Description 02/19/2010 - Hospital Encounter [facility] Mary Veronica, 02/22/2010 INPT/OBSRV CYRIL, C.N.P., D.N.P. [address] [place] [phone] Social History Tobacco Use Types Packs/Day Years Used Date Smoking Tobacco: Never Assessed Sex Assigned at Date Recorded Not on file documented as of this encounter Plan of Treatment Not on filedocumented as of this encounter Visit Diagnoses Not on filedocumented in this encounter
--- OUTSIDE RECORDS SUMMARY | 2022-05-06 13:15 | XMS_ITS | Encounter Summary ---
:1935 Author Organization [facility] Address [address] [place] [address] Care Team Providers Name Role Phone Unavailable Primary Care Provider Unavailable Encounter Details Date Type Department Care Team Description 12/29/2009 Hospital Encounter [facility] Jordi Villarreal, INPT/OBSRV M.D. [address] [place] [phone] (Wo rk) Social History Tobacco Use Types Packs/Day Years Used Date Smoking Tobacco: Never Assessed Sex Assigned at Date Recorded Not on file documented as of this encounter Plan of Treatment Not on filedocumented as of this encounter Visit Diagnoses Not on filedocumented in this encounter
--- OUTSIDE RECORDS SUMMARY | 2022-05-06 13:15 | XMS_ITS | Encounter Summary ---
:1935 Author Organization [facility] Address [address] [place] [address] Care Team Providers Name Role Phone Unavailable Primary Care Provider Unavailable Encounter Details Date Type Department Care Team Description 01/26/2001 Hospital Encounter HX [facility] Abelino Barbosa M.D. [address] [place] [address] (Wo rk) Social History Tobacco Use Types Packs/Day Years Used Date Smoking Tobacco: Never Assessed Sex Assigned at Date Recorded Not on file documented as of this encounter Progress Notes Conversion, Historical Provider Ser - 01/26/2001 8:40 AM CDT [id number] The current gellhorn gives rectal pressure otherwise working OK. Will try a 2 1/4.2 1/4 placed wit hout difficulty.return to clinic as needed Source[facility] Document Id: [id number] documented in this encounter Plan of Treatment Not on filedocumented as of this encounter Visit Diagnoses Not on filedocumented in this encounter
--- OUTSIDE RECORDS SUMMARY | 2022-05-06 13:15 | XMS_ITS | Encounter Summary ---
:1935 Author Organization [facility] Address [address] [place] [address] Care Team Providers Name Role Phone Unavailable Primary Care Provider Unavailable Encounter Details Date Type Department Care Team Description 01/22/2001 Hospital Encounter HX [facility] Abelino Barbosa M.D. [address] [place], [place] [phone] (Wo rk) Social History Tobacco Use Types Packs/Day Years Used Date Smoking Tobacco: Never Assessed Sex Assigned at Date Recorded Not on file documented as of this encounter Progress Notes Conversion, Historical Provider Ser - 01/22/2001 12:00 AM CDT [id number] [id number] [place], [place] [address]Xvv 2000MRN [id number] ear Ms. Leon:I am writing to inform you the results of the laboratory tests you had done during your recent visit to the clinic. The results of your recent tests were: urinalysis was NORMAL It was a pleasure to see you in the clinic. If you have any further questions or problems, please conta ct our office at [phone].Sincerely,Pamela Leon M.D.SEO SPECIALIST Department Source: [facility] Document Id: [id number] documented in this encounter Plan of Treatment Not on filedocumented as of this encounter Visit Diagnoses Not on filedocumented in this encounter
--- OUTSIDE RECORDS SUMMARY | 2022-05-06 13:15 | XMS_ITS | Encounter Summary ---
:1935 Author Organization [facility] Address [address] [place] [address] Care Team Providers Name Role Phone Unavailable Primary Care Provider Unavailable Encounter Details Date Type Department Care Team Description 03/22/2001 Hospital Encounter HX NO MAPPING Provider, Historical Social History Tobacco Use Types Packs/Day Years Used Date Smoking Tobacco: Never Assessed Sex Assigned at Date Recorded Not on file documented as of this encounter Miscellaneous Notes Miscellaneous - Conversion, Historical Provider Ser - 03/22/2001 12:00 AM CDT [id number] *-*-*-*-* SEE SCANNED REPORT *-*-*-*-* Source: [facility] RWHXTRANSXSYS Document Id: [id number] documented in this encounter Plan of Treatment Not on filedocumented as of this encounter Visit Diagnoses Not on filedocumented in this encounter
--- OUTSIDE RECORDS SUMMARY | 2022-05-06 13:15 | XMS_ITS | Encounter Summary ---
:1935 Author Organization [facility] Address [address] [place] [address] Care Team Providers Name Role Phone Unavailable Primary Care Provider Unavailable Encounter Details Date Type Department Care Team Description 12/30/2009 Hospital Encounter [facility] Jordi Villarreal, INPT/OBSRV M.D. [address] [place] [phone] (Wo rk) Social History Tobacco Use Types Packs/Day Years Used Date Smoking Tobacco: Never Assessed Sex Assigned at Date Recorded Not on file documented as of this encounter Plan of Treatment Not on filedocumented as of this encounter Visit Diagnoses Not on filedocumented in this encounter
--- OUTSIDE RECORDS SUMMARY | 2022-05-06 13:15 | XMS_ITS | Encounter Summary ---
:1935 Author Organization [facility] Address [address] [place] [address] Care Team Providers Name Role Phone Unavailable Primary Care Provider Unavailable Encounter Details Date Type Department Care Team Description 01/05/2007 Hospital Encounter HX [facility] Asher Campbell M.D. 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 I recommend you have a repeat colonoscopy in 3 years. If you have any questions/concerns regarding this, please call [facility] at [phone]. Thank you for letting us serve you. Sincerely, Wm. Wayne Green M.D./fernando Source: [facility] Document Id: [id number] documented in this encounter Plan of Treatment Not on filedocumented as of this encounter Visit Diagnoses Not on filedocumented in this encounter
--- OUTSIDE RECORDS SUMMARY | 2022-05-06 13:15 | XMS_ITS | Encounter Summary ---
:1935 Author Organization [facility] Address [address] [place] [address] Care Team Providers Name Role Phone Unavailable Primary Care Provider Unavailable Encounter Details Date Type Department Care Team Description 01/21/2001 Hospital Encounter HX [facility] Abelino Barbosa M.D. [address] [place] [address] (Wo rk) Social History Tobacco Use Types Packs/Day Years Used Date Smoking Tobacco: Never Assessed Sex Assigned at Date Recorded Not on file documented as of this encounter Progress Notes Conversion, Historical Provider Ser - 01/21/2001 2:20 PM CDT [id number] Number five cube did not stay in. Fitted several styles and sizes with finally a #2 1/2 gellhorn t hat fit fairly well.If returns, try a six cube. This is temporary, and patient plans surgery when i t fits in her schedule. Source: [facility] Document Id: [id number] documented in this encounter Plan of Treatment Not on filedocumented as of this encounter Visit Diagnoses Not on filedocumented in this encounter
--- OUTSIDE RECORDS SUMMARY | 2022-05-06 13:15 | XMS_ITS | Encounter Summary ---
:1935 Author Organization [facility] Address [address] [place] [address] Care Team Providers Name Role Phone Unavailable Primary Care Provider Unavailable Encounter Details Date Type Department Care Team Description 01/27/2008 Hospital Encounter [facility] INPT/OBSRV Leilani Marques M.D. [address] [place], [place] [address] (Wo rk) Social History Tobacco Use Types Packs/Day Years Used Date Smoking Tobacco: Never Assessed Sex Assigned at Date Recorded Not on file documented as of this encounter Plan of Treatment Not on filedocumented as of this encounter Visit Diagnoses Not on filedocumented in this encounter
--- OUTSIDE RECORDS SUMMARY | 2022-05-06 13:15 | XMS_ITS | Encounter Summary ---
:1935 Author Organization [facility] Address [address] [place] [address] Care Team Providers Name Role Phone Unavailable Primary Care Provider Unavailable Encounter Details Date Type Department Care Team Description 08/13/2009 Hospital Encounter [facility] INPT/OBSRV Harriet Cortez, CYRIL, C.N.P., D.N.P. [address] [place] [phone] (Wo rk) Social History Tobacco Use Types Packs/Day Years Used Date Smoking Tobacco: Never Assessed Sex Assigned at Date Recorded Not on file documented as of this encounter Plan of Treatment Not on filedocumented as of this encounter Visit Diagnoses Not on filedocumented in this encounter
--- OUTSIDE RECORDS SUMMARY | 2022-05-06 13:15 | XMS_ITS | Encounter Summary ---
:1935 Author Organization [facility] Address [address] [place] [address] Care Team Providers Name Role Phone Unavailable Primary Care Provider Unavailable Encounter Details Date Type Department Care Team Description 12/12/2002 Hospital Encounter HX NO MAPPING Provider, Historical Social History Tobacco Use Types Packs/Day Years Used Date Smoking Tobacco: Never Assessed Sex Assigned at Date Recorded Not on file documented as of this encounter Miscellaneous Notes Miscellaneous - Conversion, Historical Provider Ser - 12/12/2002 12:00 AM ACCOUNT ASSOCIATE [id number] Records sent to pt for the following dates all clinic/enc hx notes and xray rfs, and ekg rfs 11-12-97 to 12-12-02, pt hx sheets, med list, all labs 07-22-99 to 06-21-02, and clinic path rf of 01-10-00.kelvin hanna ( 19pgs) [place] Source: [facility] RWHXTRANSXSYS Document Id: [id number] documented in this encounter Plan of Treatment Not on filedocumented as of this encounter Visit Diagnoses Not on filedocumented in this encounter
--- OUTSIDE RECORDS SUMMARY | 2022-05-06 13:15 | XMS_ITS | Encounter Summary ---
:1935 Author Organization [facility] Address [address] [place] [address] Care Team Providers Name Role Phone Unavailable Primary Care Provider Unavailable Encounter Details Date Type Department Care Team Description 10/05/2002 Hospital Encounter HX NO MAPPING Provider, Historical Social History Tobacco Use Types Packs/Day Years Used Date Smoking Tobacco: Never Assessed Sex Assigned at Date Recorded Not on file documented as of this encounter Plan of Treatment Not on filedocumented as of this encounter Visit Diagnoses Not on filedocumented in this encounter
--- OUTSIDE RECORDS SUMMARY | 2022-05-06 13:15 | XMS_ITS | Encounter Summary ---
:1935 Author Organization [facility] Address [address] [place] [address] Care Team Providers Name Role Phone Unavailable Primary Care Provider Unavailable Encounter Details Date Type Department Care Team Description 04/06/2001 Hospital Encounter HX [facility] Abelino Barbosa M.D. [address] [place] [address] (Wo rk) Social History Tobacco Use Types Packs/Day Years Used Date Smoking Tobacco: Never Assessed Sex Assigned at Date Recorded Not on file documented as of this encounter Progress Notes Conversion, Historical Provider Emmanuel - 04/06/2001 2:40 PM CDT [id number] Kathryn Leon is a 66 year old now two weeks post-operative from AP repair. Is doing well with no co mplaint. Good bowel and bladder fuction. Good pain control.EXAM: PELVIC: incisions healing well-no induration or erythemaASSESSMENT: Good post-op recovery.PLAN: To return at six weeks postoperati ve for next check. Start vaginal estrogen again. 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 [facility] Document Id: [id number] documented in this encounter Plan of Treatment Not on filedocumented as of this encounter Visit Diagnoses Not on filedocumented in this encounter
--- OUTSIDE RECORDS SUMMARY | 2022-05-06 13:15 | XMS_ITS | Encounter Summary ---
:1935 Author Organization [facility] Address [address] [place] [address] Care Team Providers Name Role Phone Unavailable Primary Care Provider Unavailable Encounter Details Date Type Department Care Team Description 10/19/2001 Hospital Encounter HX NO MAPPING Sunny Vernon M.D. [address] [place], [place] [address] Social History Tobacco Use Types Packs/Day Years Used Date Smoking Tobacco: Never Assessed Sex Assigned at Date Recorded Not on file documented as of this encounter Miscellaneous Notes Miscellaneous - Conversion, Historical Provider Ser - 10/19/2001 12:00 AM RADIOLOGIC TECH [id number] Records copied for pt to hand carry Dr. Stephanie Olivier for the following dates mammo and rf of 7 5-00, bone mineral densitometry film and rf of 5-4-00.aj. Source: [facility] RWHXTRANSXSYS Document Id: [id number] documented in this encounter Plan of Treatment Not on filedocumented as of this encounter Visit Diagnoses Not on filedocumented in this encounter
--- OUTSIDE RECORDS SUMMARY | 2022-05-06 13:15 | XMS_ITS | Encounter Summary ---
:1935 Author Organization [facility] Address [address] [place] [address] Care Team Providers Name Role Phone Unavailable Primary Care Provider Unavailable Encounter Details Date Type Department Care Team Description 05/11/2001 Hospital Encounter HX [facility] Abelino Barbosa M.D. [address] [place] [address] (Wo rk) Social History Tobacco Use Types Packs/Day Years Used Date Smoking Tobacco: Never Assessed Sex Assigned at Date Recorded Not on file documented as of this encounter Progress Notes Conversion, Historical Provider Ser - 05/11/2001 9:30 AM CDT [id number] Kathryn Leon is a 66 year old now six weeks post-operative from anterior and posterior repair. Is d oing well with no complaint. Good bowel and bladder fuction. Good pain control.EXAM: PELVIC: Vagin al incision healing well with no induration, tenderness, or erythema. Small area of granulation tissu e at apex.ASSESSMENT: Good post-op recovery. Wait one week before anything in vagina.PLAN: To ret urn PRN. Continue Mycolog II as needed. [facility] Document Id: [id number] documented in this encounter Plan of Treatment Not on filedocumented as of this encounter Visit Diagnoses Not on filedocumented in this encounter
--- OUTSIDE RECORDS SUMMARY | 2022-05-06 13:15 | XMS_ITS | Encounter Summary ---
:1935 Author Organization [facility] Address [address] [place] [address] Care Team Providers Name Role Phone Unavailable Primary Care Provider Unavailable Encounter Details Date Type Department Care Team Description 11/15/2001 Hospital Encounter HX NO MAPPING Provider, Historical Social History Tobacco Use Types Packs/Day Years Used Date Smoking Tobacco: Never Assessed Sex Assigned at Date Recorded Not on file documented as of this encounter Plan of Treatment Not on filedocumented as of this encounter Visit Diagnoses Not on filedocumented in this encounter
--- OUTSIDE RECORDS SUMMARY | 2022-05-06 13:15 | XMS_ITS | Encounter Summary ---
:1935 Author Organization [facility] Address [address] [place] [address] Care Team Providers Name Role Phone Unavailable Primary Care Provider Unavailable Encounter Details Date Type Department Care Team Description 06/17/2002 Hospital Encounter HX NO MAPPING Provider, Historical Social History Tobacco Use Types Packs/Day Years Used Date Smoking Tobacco: Never Assessed Sex Assigned at Date Recorded Not on file documented as of this encounter Plan of Treatment Not on filedocumented as of this encounter Visit Diagnoses Not on filedocumented in this encounter
--- OUTSIDE RECORDS SUMMARY | 2022-05-06 13:15 | XMS_ITS | Encounter Summary ---
:1935 Author Organization [facility] Address [address] [place] [address] Care Team Providers Name Role Phone Unavailable Primary Care Provider Unavailable Encounter Details Date Type Department Care Team Description 12/31/2006 Hospital Encounter HX NO MAPPING Arnie Green am, M.D. [address] [place] [phone] (Wo rk) Social History Tobacco Use Types Packs/Day Years Used Date Smoking Tobacco: Never Assessed Sex Assigned at Date Recorded Not on file documented as of this encounter Plan of Treatment Not on filedocumented as of this encounter Visit Diagnoses Not on filedocumented in this encounter
--- OUTSIDE RECORDS SUMMARY | 2022-05-06 13:15 | XMS_ITS | Encounter Summary ---
:1935 Author Organization [facility] Address [address] [place] [address] Care Team Providers Name Role Phone Unavailable Primary Care Provider Unavailable Encounter Details Date Type Department Care Team Description 02/09/2002 Hospital Encounter HX [facility] Cassidy Atwood L.P.N. [address] [place] [address] Social History Tobacco Use Types Packs/Day Years Used Date Smoking Tobacco: Never Assessed Sex Assigned at Date Recorded Not on file documented as of this encounter Miscellaneous Notes Telephone Encounter - Conversion, Historical Provider Ser - 02/09/2002 12:00 AM CDT [id number] >> BELLO GARY ThuFebruary 09, 2002 11:53 AM OK Breana CAIN >> KAYCEE JAIN ThuFebruary 09, 2002 10:10 AM >> CALL RECEIVED. Contact: Patient of Dr. Leon, requesting medication refill. Thank you. Source: [facility] Document Id: [id number] documented in this encounter Plan of Treatment Not on filedocumented as of this encounter Visit Diagnoses Not on filedocumented in this encounter
--- OUTSIDE RECORDS SUMMARY | 2022-05-06 13:15 | XMS_ITS | Encounter Summary ---
:1935 Author Organization [facility] Address [address] [place] [address] Care Team Providers Name Role Phone Unavailable Primary Care Provider Unavailable Encounter Details Date Type Department Care Team Description 06/22/2001 Hospital Encounter HX [facility] Stephanie Millan L.P.N. [address] [place], [place] [phone] Social History Tobacco Use Types Packs/Day Years Used Date Smoking Tobacco: Never Assessed Sex Assigned at Date Recorded Not on file documented as of this encounter Miscellaneous Notes Telephone Encounter - Conversion, Historical Provider Ser - 06/22/2001 12:00 AM CDT [id number] >> LAZ LEON Tue Jun 22, 2001 7:41 PM ok >> STEPHANIE SANTAMARIA leandra Jun 22, 2001 3:56 PM >> CALL RECEIVED. Contact: [facility] Document Id: [id number] documented in this encounter Plan of Treatment Not on filedocumented as of this encounter Visit Diagnoses Not on filedocumented in this encounter
--- OUTSIDE RECORDS SUMMARY | 2022-05-06 13:15 | XMS_ITS | Encounter Summary ---
:1935 Author Organization [facility] Address [address] [place] [address] Care Team Providers Name Role Phone Unavailable Primary Care Provider Unavailable Encounter Details Date Type Department Care Team Description 12/29/2009 Hospital Encounter HX [facility] Jordi Villarreal, INPT/OBSRV M.D. [address] [place] [phone] (Wo rk) Social History Tobacco Use Types Packs/Day Years Used Date Smoking Tobacco: Never Assessed Sex Assigned at Date Recorded Not on file documented as of this encounter Plan of Treatment Not on filedocumented as of this encounter Visit Diagnoses Not on filedocumented in this encounter
--- OUTSIDE RECORDS SUMMARY | 2022-05-06 13:15 | XMS_ITS | Encounter Summary ---
:1935 Author Organization [facility] Address [address] [place] [address] Care Team Providers Name Role Phone Unavailable Primary Care Provider Unavailable Encounter Details Date Type Department Care Team Description 02/02/2007 Hospital Encounter HX NO MAPPING Social History Tobacco Use Types Packs/Day Years Used Date Smoking Tobacco: Never Assessed Sex Assigned at Date Recorded Not on file documented as of this encounter Plan of Treatment Not on filedocumented as of this encounter Visit Diagnoses Not on filedocumented in this encounter
--- OUTSIDE RECORDS SUMMARY | 2022-05-06 13:15 | XMS_ITS | Encounter Summary ---
:1935 Author Organization [facility] Address [address] [place] [address] Care Team Providers Name Role Phone Unavailable Primary Care Provider Unavailable Encounter Details Date Type Department Care Team Description 06/21/2002 Hospital Encounter HX [facility] Abelino Barbosa M.D. [address] [place] [address] (Wo rk) Social History Tobacco Use Types Packs/Day Years Used Date Smoking Tobacco: Never Assessed Sex Assigned at Date Recorded Not on file documented as of this encounter Progress Notes Conversion, Historical Provider Ser - 06/21/2002 3:15 PM CDT [id number] Kathryn is here to discuss lab results from [place] and switch to Fosamax, DC of premarin. On labs there wa s an elevated liver test result but records not yet available. They obtained a DEXA which showed im provement from last year. Because of liver results was placed on Fosamax. Discussed reasoning and pat ient will follow up in [place] as instructed by primary care physician there, in one year. Time spe nt discussing problems with patient greater than 15 minutes. Quick Note by: LAZ SANTIAGO on 06/22/02 at 3:46 PM. letter out Source[facility] Document Id: [id number] documented in this encounter Miscellaneous Notes Miscellaneous - Laz Santiago K - 06/21/2002 3:15 PM CDT [id number] Kathryn Santiago [address] [place] [place] [id number] 06/22/2002 Dear Kathryn Santiago LAB RESULTS: The results of your recent TSH, (thyroid function) was normal.. If you have any further questions orproblems, please contact our office at [phone]. Sincerely, Laz Santiago M.D. [facility] Obstetrics and Gynecology Department Source: [facility] Document Id: [id number] Electronically signed by Conversion, [facility] Distance Education Director [id number] at 02/16/2017 7:46 PM CDT documented in this encounter Plan of Treatment Not on filedocumented as of this encounter Visit Diagnoses Not on filedocumented in this encounter
--- OUTSIDE RECORDS SUMMARY | 2022-05-06 13:15 | XMS_ITS | Encounter Summary ---
:1935 Author Organization [facility] Address [address] [place] [address] Care Team Providers Name Role Phone Unavailable Primary Care Provider Unavailable Encounter Details Date Type Department Care Team Description 12/31/2006 Hospital Encounter HX NO MAPPING Arnie Green am, M.D. [address] [place] [phone] (Wo rk) Social History Tobacco Use Types Packs/Day Years Used Date Smoking Tobacco: Never Assessed Sex Assigned at Date Recorded Not on file documented as of this encounter Plan of Treatment Not on filedocumented as of this encounter Visit Diagnoses Not on filedocumented in this encounter
--- OUTSIDE RECORDS SUMMARY | 2022-05-06 13:15 | XMS_ITS | Encounter Summary ---
:1935 Author Organization [facility] Address [address] [place] [address] Care Team Providers Name Role Phone Unavailable Primary Care Provider Unavailable Encounter Details Date Type Department Care Team Description 09/30/2001 Hospital Encounter HX [facility] Stephanie Millan L.P.N. [address] [place], [place] [phone] Social History Tobacco Use Types Packs/Day Years Used Date Smoking Tobacco: Never Assessed Sex Assigned at Date Recorded Not on file documented as of this encounter Miscellaneous Notes Telephone Encounter - Conversion, Historical Provider Ser - 09/30/2001 12:00 AM CST [id number] >> STEPHANIE Marin Sep 30, 2001 11:22 AM >> CALL RECEIVED. Contact: [facility] Document Id: [id number] documented in this encounter Plan of Treatment Not on filedocumented as of this encounter Visit Diagnoses Not on filedocumented in this encounter
--- OUTSIDE RECORDS SUMMARY | 2022-05-06 13:15 | XMS_ITS | Encounter Summary ---
:1935 Author Organization [facility] Address [address] [place] [address] Care Team Providers Name Role Phone Unavailable Primary Care Provider Unavailable Encounter Details Date Type Department Care Team Description 01/20/2001 Hospital Encounter HX [facility] Abelino Barbosa M.D. [address] [place] [address] (Wo rk) Social History Tobacco Use Types Packs/Day Years Used Date Smoking Tobacco: Never Assessed Sex Assigned at Date Recorded Not on file documented as of this encounter Progress Notes Conversion, Historical Provider Ser - 01/20/2001 1:40 PM CDT [id number] Kathryn Leon has suddenly had a feeling of pressure and can feel a bulge at the introitus. Also shruthi d to empty bladder without positioning changes while voiding. 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
--- OUTSIDE RECORDS SUMMARY | 2022-05-06 13:15 | XMS_ITS | Encounter Summary ---
:1935 Author Organization [facility] Address [address] [place] [address] Care Team Providers Name Role Phone Unavailable Primary Care Provider Unavailable Encounter Details Date Type Department Care Team Description 08/21/2008 Hospital Encounter HX [facility] INPT/OBSRV Leilani Marques M.D. [address] [place], [place] [address] (Wo rk) Social History Tobacco Use Types Packs/Day Years Used Date Smoking Tobacco: Never Assessed Sex Assigned at Date Recorded Not on file documented as of this encounter Plan of Treatment Not on filedocumented as of this encounter Visit Diagnoses Not on filedocumented in this encounter
--- OUTSIDE RECORDS SUMMARY | 2022-05-06 13:15 | XMS_ITS | Encounter Summary ---
:1935 Author Organization [facility] Address [address] [place] [address] Care Team Providers Name Role Phone Unavailable Primary Care Provider Unavailable Encounter Details Date Type Department Care Team Description 04/08/2001 Hospital Encounter HX NO MAPPING Provider, Historical Social History Tobacco Use Types Packs/Day Years Used Date Smoking Tobacco: Never Assessed Sex Assigned at Date Recorded Not on file documented as of this encounter Plan of Treatment Not on filedocumented as of this encounter Visit Diagnoses Not on filedocumented in this encounter
[2022-05-06 22:18] LABS: SARS PCR* Negative SARS-CoV-2 (Negative)
== END 2022-05-06 13:01 | disposition home or self-care (01) ==
LOC: KYNREF 13:01
PROVIDERS: PCP Nurse Practitioner Family; Visit Provider Nurse Practitioner Family
DX: Z20.822 Contact with and (suspected) exposure to COVID-19 (principal)
CPT/HCPCS: 87635

== ENCOUNTER 2022-05-23 15:21 | Outpatient (CLI) | payer MEDICARE, OTHER, SELFPAY ==
--- OUTSIDE RECORDS SUMMARY | 2022-05-23 11:25 | XMS_ITS | Encounter Summary ---
:1935 Author Organization Address [address] [place] [address] Care Team Providers Name Role Phone Dontrell Gallardo MD Primary Care Provider Encounter Details Date Type Department Care Team Description 03/01/2021 Orders Only Bo[place] Jelly Kendrick (Primary Dx); [address] [place] Cellulitis, unspecified cellulitis site [place], [place] [address] [facility] [address] [place] [address] Social History Tobacco Use Types Packs/Day Years [...] site documented in this encounter Care Teams Tool Shaper Set Up Operator Relationship Specialty Start Date End Date Dontrell Gallardo MD PCP - General Family Medicine 01/31/[address] [place] [address] documented as of this encounter
--- OUTSIDE RECORDS SUMMARY | 2022-05-23 11:25 | XMS_ITS | Encounter Summary ---
:1935 Author Organization [facility] Address [address] [place] [address] Care Team Providers Name Role Phone Dontrell [...] [place] [address] [place] [address] [place] [phone] Social History Tobacco Use Types Packs/Day Years [...] encounter documented in this encounter Care Teams Child Psychiatrist Relationship Specialty Start Date End Date Dontrell Gallardo MD PCP - General Family Medicine 01/31/21 [address] [place] [address] documented as of this encounter
--- OUTSIDE RECORDS SUMMARY | 2022-05-23 11:25 | XMS_ITS | Encounter Summary ---
:1935 Author Organization [facility] Address [address] [place] [address] Care Team Providers Name Role Phone Dontrell Gallardo MD Primary Care Provider Reason for Visit Reason Onset Date Comments 1 week follow up visit 02/18/2021 Encounter Details Date Type Department Care Team Description 02/18/2021 [place], 1 week follow up visit [address] [place], [place] [address] [facility] [address] [place] [phone] [place] [address] (Wo rk) Social History Tobacco Use Types [...] on filedocumented in this encounter Care Teams Design Agent Relationship Specialty Start Date End Date Dontrell Gallardo MD PCP - General Family Medicine 01/31/[address] [place] [address] documented as of this encounter
--- OUTSIDE RECORDS SUMMARY | 2022-05-23 11:25 | XMS_ITS | Clinical Summary ---
:1935 Author Organization [facility] [place] [address] Care Team Providers Name Role Phone Pcp, No Primary Care Provider Unavailable Allergies Active Allergy Reactions Severity Noted Date Comments Gluten *Unknown 12/20/2011 H/O Celiac Dise ase No Known Drug Allergies *Unknown Peanut Hives, Throat 12/20/2011 Swelling/Closing Medications Medication Sig Dispensed Refills Start Date End Date Status MING-D 12 HOUR 60 Take one tablet by 60 3 10/28/2007 Active MG-120 MG TAB mouth twice a day gatifloxacin Place 1 Drop into 1 Bottle 0 12/17/2011 Active (ZYMAXID) 0.5 % the eye(s) 4 times ophthalmic solution daily. aspirin 81 mg tablet Take 81 mg by mouth 0 Active once daily with a meal. calcium Take 1 tablet by 0 Act fito carbonate-vitamin D3, mouth 2 times daily 600 mg-400 unit, with meals. (CALCIUM 600 + D) tablet DORZOLAMIDE Place 1 Drop into 0 Active HCL/TIMOLOL MALEAT the eye(s) 2 times (COSOPT OPHT) daily. ferrous gluconate 325 Take 325 mg by 0 Active mg tablet mouth 2 times daily with meals. FLUTICASONE Inhale 2 Puffs in 0 Active PROPIONATE (FLONASE the nostril(s) once NASL) daily. gabapentin Take 1 capsule by 0 A ctive (NEURONTIN) 300 mg mouth every morning capsule and 3 capsules at bedtime. ibuprofen (ADVIL; Take 400 mg by 0 Active MOTRIN) 400 mg tablet mouth 3 times daily if needed. multivitamin (MVI) Take 1 tablet by 0 Active tablet mouth once daily. CYCLOSPORINE Place 1 Drop into 0 Active (RESTASIS OPHT) both eyes every 12 hours. cyanocobalamin Take 1,000 mcg by 0 Active (VITAMIN B-12) 1,000 mouth once daily. mcg tablet omeprazole (PRILOSEC) Take 40 mg by mouth 0 Active 40 mg capsule once daily before a meal. acetaminophen Take 1,000 mg by 0 Active (TYLENOL EXTRA mouth every 6 hours STRENGTH) 500 mg if needed. Max tablet acetaminophen dose: 4000mg in [address] 1 Drop into 0 12/20/2013 Active (RESTASIS) 0.05 % both eyes every 12 ophthalmic emulsion hours. Active Problems Not on file Social History Tobacco Use Types Packs/Day Years Used Date Never Smoker Smokeless Tobacco: Never Used Comments: non smoker Alcohol Use Standard Drinks/Week Comments Yes 0 (1 standard drink = 0.6 oz pure alcoho l) Rare Alcohol Habits Answer Date Recorded How often do you have a drink containing alcohol? Not asked How many drinks containing alcohol do you have on a typical Not asked day when you are drinking? How often do you have six or more drinks on one occasion? No t asked Comment: rare 12/20/2011 Sex Assigned at Date Recorded Not on file Obstetrics History Last Filed Vital Signs Vital Sign Reading Time Taken Comments Blood Pressure 140/78 12/22/2011 4:30 PM CDT Pulse 78 12/22/2011 4:30 PM CDT Temperature 36 ??C (96.8 ??F) 12/22/2011 12:33 PM CDT Respiratory Rate 16 12/22/2011 4:30 PM CDT Oxygen Saturation 98% 12/22/2011 4:30 PM CDT Inhaled Oxygen Concentration - - Weight 73.6 kg (162 lb 4.1 oz) 12/20/2011 8:55 AM CDT Height 163 cm (5' 4.17) 12/20/2011 8:55 AM CDT Body Mass Index 27.7 12/20/2011 8:55 AM CDT Plan of Treatment Health Maintenance Due Date Last Done Comments COVID-19 vaccine series (#1) 1935 Tdap 02/25/1946 Depression screening for age 12+ 1949 BMI (ht and wt on same day) for age 18+ 1955 Tetanus booster 1957 Zoster (shingles) series for age 50+ (1 of 2) 1987 DEXA/DXA scan for age 65+ 2002 Pneumococcal series for age 65+ (1 - PCV) 2002 Influenza for age 65+ 05/15/2022 Medical Devices Implanted Type Area Spring Tacker Device Shelf Model / Identifier Expiration Serial / Date Lot Cornea Glycerol Half - [id number] Right: Casie Soto ons 09/19/2014 GLYCEROL# / Implanted: Qty: 1 on 12/22/2011 at [facility] [id number] / Results Not on filefrom Last 3 Months Insurance Payer Benefit Plan / Subscriber ID Effective Dates Phone Addre ss Type Group MEDICARE PART B MEDICARE PART B [id number] 2002-Present ATTN: CLAIMS - HB USE ONLY HB ONLY [address] [place] [address] MEDICARE - PB MEDICARE PB [id number] 2002-Present ATTN : CLAIMS USE ONLY ONLY [address] [place] [address] FOR [id number] 2002-Present [address] [place] [address] Advance Directives Latest Code Status on File Code Status Date Activated Date Inactivated Comments Full Code 12/22/2011 12:34 PM 12/22/2011 6:48 PM Care Teams Yardage Control Clerk Relationship Specialty Start Date End Date Pcp, No PCP - General 12/15/13 .
--- OUTSIDE RECORDS SUMMARY | 2022-05-23 11:25 | XMS_ITS | Encounter Summary ---
:1935 Author Organization [facility] Address [address] [place] [address] Care Team Providers Name Role Phone Dontrell Gallardo MD Primary Care Provider Encounter Details Date Type Department Care Team Description 02/18/2021 Ancillary Procedure Prasanth Hernandez [facility]iol[facility] [address] [place], [place] [address] Social History Tobacco Use [...] on filedocumented in this encounter Care Teams Apprentice Painter Brush Relationship Specialty Start Date End Date Dontrell Gallardo MD PCP - General Family Medicine 01/31/[address] [place] [address] documented as of this encounter
--- OUTSIDE RECORDS SUMMARY | 2022-05-23 11:25 | XMS_ITS | Encounter Summary ---
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 Nurse applied bacitracin to wound, covered with 4/4 gauze and wrapped in coban. Patient stated it felt good as has difficult time wrapping. Nurse emphasized wrapping bottom to top (distalto proximal). Patient states does apply it like that,. documented in this encounter Plan of Treatment Not on filedocumented as of this encounter Visit Diagnoses Not on filedocumented in this encounter Care Teams Relay Associate Relationship Specialty Start Date End Date Dontrell Gallardo MD PCP - General Family Medicine 01/31/[address] [place] [address] documented as of this encounter
--- OUTSIDE RECORDS SUMMARY | 2022-05-23 11:25 | XMS_ITS | Encounter Summary ---
:1935 Author Organization [facility] Address [address] [place] [address] Care Team Providers Name Role Phone Dontrell Gallardo MD Primary Care Provider Reason for Visit Reason Onset Date Comments Med Refill Med Refill 05/23/2021 Encounter Details Date Type Department Care Team Description 05/07/2021 Refill [place] Dontrell Gallardo, Gastroesophageal reflux [address] [place], [place] [address] [address] [facility] 20 [place] [phone] [place] [address] Social History Tobacco Use Types Packs/Day Years [...] reflux documented in this encounter Care Teams Senior Corporate Strategy Manager Relationship Specialty Start Date End Date Dontrell Gallardo MD PCP - General Family Medicine 01/31/21 [address] [place] [address] documented as of this encounter
--- OUTSIDE RECORDS SUMMARY | 2022-05-23 11:25 | XMS_ITS | Encounter Summary ---
:1935 Author Organization [facility] Address [address] [place] [address] Care Team Providers Name Role Phone Dontrell Gallardo MD Primary Care Provider Reason for Visit Reason Onset Date Comments leg wound 03/01/2021 Encounter Details Date Type Department Care Team Description 03/01/2021 Telephone [place] Jelly Kendrick MD leg wound [address] [place], [place] [address] [place], [place] [phone] [address] (Wo rk) Social History Tobacco Use Types [...] oral thrush. They have been sent to [facility] pharmacy here in town. Then call the [facility] pharmacy and just let them know that we are stopping the Septra medication and she will be starting the Augmentin. Telephone Encounter - Rosa Wells LPN - 03/01/2021 10:42 AM CDT She does not have enough of the mouth rinse. Her's is outdated. Pharmacy: [facility] She has not taken an antibiotic [...] the antibiotic Rx. Please call Pt at [phone] to advise. documented in this encounter Plan of Treatment Not on filedocumented as of this encounter Visit Diagnoses Not on filedocumented in this encounter Care Teams Health Information Tech Relationship Specialty Start Date End Date Dontrell Gallardo MD PCP - General Family Medicine 01/31/[address] [place] [address] documented as of this encounter
--- OUTSIDE RECORDS SUMMARY | 2022-05-23 11:25 | XMS_ITS | Encounter Summary ---
:1935 Author Organization [facility] Address [address] [place] [address] Care Team Providers Name Role Phone Dontrell Gallardo MD Primary Care Provider Reason for Visit Reason Onset Date Comments Med Refill 05/21/2022 Encounter Details Date Type Department Care Team Description 05/21/2022 Refill [place] Dontrell Gallardo, Allergic rhinitis, [address] unspecified seasonality, [place], [place] [address] [place] unspecified trigger [phone] [place] [address] (Wo rk) Social History Tobacco Use Types [...] this encounter Miscellaneous Notes Telephone Encounter - Tabitha Lombardo LPN - 05/21/2022 3:55 PM CDT Last visit in provider department: 03/27/21 Last visit requested medication was discussed: Not found in the last year Last Rx: 09/05/21 #180 2 refills Requested Prescriptions Pending Prescriptions Disp Refills ? ? fexofenadine-pseudoephedrine ([facility]) 60-120 MG per 12 hr tablet 180tablet 2 Sig: May take ONE tab up to two times a day for nasal congestion as needed Labs: 01/29/21 Vitals: BP Readings from Last 2 Encounters: 03/27/21 118/78 02/27/21 128/66 Upcoming appointment with provider: Visit date not found Patient is due for CP appointment. PSR/Nurse: Please contact patient to assist with scheduling. documented in this encounter Plan of Treatment Not on filedocumented as of this encounter Visit Diagnoses Diagnosis Allergic rhinitis, unspecified seasonali ty, unspecified trigger documented in this encounter Care Teams Fire Support Man Relationship Specialty Start Date End Date Dontrell Gallardo MD PCP - General Family Medicine 01/31/[address] [place] [address] documented as of this encounter
--- OUTSIDE RECORDS SUMMARY | 2022-05-23 11:25 | XMS_ITS | Clinical Summary ---
:1935 Author Organization [facility] Address [address] [place] [address] Care Team Providers Name Role Phone Dontrell [...] Take one 200 mL 1 03/01/2021 Active 224144 UNIT/ML teaspoon four suspensionIndications: times a day [...] 2014 HSAn-reactive, immune, 2015 CT ABD at [facility] 2018 Stable left h epatic lobe cyst. Fatty infiltration of the liver. Rheumatoid arthritis 10/25/2010 Overview: Arthritis, rheumatoid* Resolved Problems Problem Noted Date Resolved Date Osteoporosis 07/14/2019 11/01/2020 Encounters Date Type Specialty Care Team Description 05/21/2022 Refill Family Medicine Dontrell Gallardo MD All ergic rhinitis, unspecified sea sonality, unspecified tri gger from Last 3 Months Immunizations Name Administration Dates Next Due COVID-19, [...] Last Done Comments Zoster Vaccines (2 of 2) 11/27/2010 10/02/2010 Fall Risk Performed 08/10/2021 08/10/2020, 04/06/2018 [facility] Annual Wellness 08/10/2021 08/10/2020, 04/06/2018 Glaucoma Screening 67+ Yr 11/12/2021 11/12/2020, 09/14/2019 Mammogram 02/11/2023 02/11/2022, 11/13/2020, 06/27/2019, Additional history exists Pneumococcal Vaccine: 65+ Completed 07/10/2015, 02/01/2007 Years COVID-19 Vaccine Completed 02/12/2022, 07/09/2021, 11/15/2020, Additional history exists HPV Vaccines Aged Out No longer eligib le based on patient 's age to complete this topic Insurance Payer Benefit Plan / Subscriber ID Effective Dates Phone Addre ss Type Group MEDICARE MEDICARE [id number] 2002-Present [address] [address] [place] [address] FOR LIFE [id number] 2002-Present [facility] [place] [address] Advance Directives For more information, please contact: [phone] Documents on File Type Date Recorded Patient Knock Out Hand Explanati on Advance Directives and Living 06/21/2019 9:35 AM Will Care Teams Stockbroker Relationship Specialty Start Date End Date Dontrell Gallardo MD PCP - General Family Medicine 01/31/[address] [place] [address]
--- OUTSIDE RECORDS SUMMARY | 2022-05-23 11:25 | XMS_ITS | Encounter Summary ---
:1935 Author Organization [facility] Address [address] [place] [address] Care Team Providers Name Role Phone Dontrell Gallardo MD Primary Care Provider Encounter Details Date Type Department Care Team Description 09/05/2021 Telephone VeguitaDontrell Yin MD [address] [place], [place] [address] [place], [place] [phone] [address] (Wo rk) Social History Tobacco Use Types [...] 09/05/2021 11:30 AM CST Rx faxed to [facility] pharmacy. RITIES LENDING TRADER Telephone Encounter - Amber Jon RN - 09/05/2021 11:28 AM CST Please fax patient Rx. RITIES LENDING TRADER documented in this encounter Plan of Treatment Not on filedocumented as of this encounter Visit Diagnoses Not on filedocumented in this encounter Care Teams Furnace Converter Relationship Specialty Start Date End Date Dontrell Gallardo MD PCP - General Family Medicine 01/31/21 [address] [facility] 20 [place] [address] documented as of this encounter
--- OUTSIDE RECORDS SUMMARY | 2022-05-23 11:25 | XMS_ITS | Encounter Summary ---
:1935 Author Organization [facility] Address [address] [place] [address] Care Team Providers Name Role Phone Dontrell Gallardo MD Primary Care Provider Reason for Visit Reason Comments Leg Pain Encounter Details Date Type Department Care Team Description 03/27/2021 Office Visit Prasanth Hernandez Jelly Kendrick Visit for wound check [address] [place] (Primary Dx) [place], [place] [address] [address] [facility] 20 [place] [address] Social History Tobacco Use Types Packs/Day Years [...] or so ago she tripped on a [employer]ee[employer] brick and unfortunately suffered a fairly significant [...] Primary documented in this encounter Care Teams Supervisor Tank House Relationship Specialty Start Date End Date Dontrell Gallardo MD PCP - General Family Medicine 01/31/[address] [place] [address] documented as of this encounter
--- OUTSIDE RECORDS SUMMARY | 2022-05-23 11:25 | XMS_ITS | Encounter Summary ---
:1935 Author Organization [facility] Address [address] [place] [address] Care Team Providers Name Role Phone Dontrell Gallardo MD Primary Care Provider Reason for Visit Reason Onset Date Comments RX 05/23/2021 Encounter Details Date Type Department Care Team Description 05/23/2021 Telephone [place] Dontrell Gallardo MD RX [address] [place], [place] [address] [place], [place] [phone] (Wo rk) Social History Tobacco Use Types [...] encounter Miscellaneous Notes Telephone Encounter - Miryam Pickerign - 05/23/2021 9:17 AM CDT Patient is requesting refill of Flonase sent to [facility]. documented in this encounter Plan of Treatment Not on filedocumented as of this encounter Visit Diagnoses Diagnosis Allergic rhinitis, unspecified seasonali ty, unspecified trigger documented in this encounter Care Teams Master Ocean Relationship Specialty Start Date End Date Dontrell Gallardo MD PCP - General Family Medicine 01/31/[address] [place] [address] documented as of this encounter
--- OUTSIDE RECORDS SUMMARY | 2022-05-23 11:25 | XMS_ITS | Encounter Summary ---
:1935 Author Organization [facility] Address [address] [place] [address] Care Team Providers Name Role Phone Dontrell Gallardo MD Primary Care Provider Reason for Visit Reason Comments Follow-up Fell up stairs Encounter Details Date Type Department Care Team Description 02/25/2021 Office Visit Prasanth Hernandez Jelly Kendrick Skin tear of left lower [address] [place] leg without [place] [address] complication, [place] subsequent encounter [place] (Primary Dx ) [address] Social History Tobacco Use Types Packs/Day Years [...] Component Value Ref Test Analysis Performed At [facility] Range Method Time Signature Wound Culture Many Beta hemolytic Streptococcus species, non A non B. 02/27/2021 [place] Beta hemolytic Strep remains universally susceptible t o penicillin. 7:40 AM CDT [facility] Gram Stain Moderate gram 02/26/2021 [place] positive cocci, 10:11 AM MEDICAL pairs and chains. CDT CENTER No WBC's seen. LABORATORY Specimen Anatomical Collection Method Collection Time Receive d Time (Source) Location / / Volume Laterality Wound (Leg, Left 02/25/2021 9:05 AM 02/25 Lower) CDT 12:23 PM CDT Comment: WOUND Narrative [facility] - 02/12 7:41 AM CDT Patient does not have an Amoxicillin or PCN allergy D. [place] Kendrick MD LAB MICROBIOLOGY - GENERAL O RDERABLES Performing Organization Address City/State/ZIP Code Phon e Number [facility] [address] [place] [address] documented in this encounter Visit Diagnoses Diagnosis Skin tear of left lower leg without comp lication, subsequent encounter - Primary documented in this encounter Care Teams Patient Relations Director Relationship Specialty Start Date End Date Dontrell Gallardo MD PCP - General Family Medicine 01/31/[address] [place] [address] documented as of this encounter
--- OUTSIDE RECORDS SUMMARY | 2022-05-23 11:25 | XMS_ITS | Encounter Summary ---
:1935 Author Organization [facility] Address [address] [place] [address] Care Team Providers Name Role Phone Dontrell [...] Primary documented in this encounter Care Teams Squeak Rattle And Leak Repairer Relationship Specialty Start Date End Date Dontrell Gallardo MD PCP - General Family Medicine 01/31/[address] [facility] [place] [address] documented as of this encounter
--- OUTSIDE RECORDS SUMMARY | 2022-05-23 11:25 | XMS_ITS | Encounter Summary ---
:1935 Author Organization [facility] Address [address] [place] [address] Care Team Providers Name Role Phone Dontrell Gallardo MD Primary Care Provider Reason for Visit Reason Comments Follow-up ER Leg Encounter Details Date Type Department Care Team Description 02/18/2021 Office Visit Nikhil Hernandez Dontrell Gallardo, Laceration of left lower ext remity, subsequent encounter (Primary Dx); [address] Thumb injury, initial encounter; Nikhil [place] [address] [place] Nondisplaced fracture of distal phalanx of right thumb, initial encounter for closed fracture [address] Nik[place]il [place] [phone] [address] Social History Tobacco Use Types Packs/Day Years [...] She was seen in the ER in [place] and found to have 15 cm laceration [...] x-rayed. She says it hurts like the [place]. The following portions of the patient's chart [...] She may have an active order through [place] [facility] where she was admitted. Return in [...] fracture documented in this encounter Care Teams Telephone Order Supervisor Relationship Specialty Start Date End Date Dontrell Gallardo MD PCP - General Family Medicine 01/31/[address] [place] [address] documented as of this encounter
--- OUTSIDE RECORDS SUMMARY | 2022-05-23 11:25 | XMS_ITS | Encounter Summary ---
:1935 Author Organization [facility] Address [address] [place] [address] Care Team Providers Name Role Phone Dontrell Gallardo MD Primary Care Provider Reason for Visit Reason Onset Date Comments Med Refill 09/05/2021 Encounter Details Date Type Department Care Team Description 09/05/2021 Refill [place] Jelly Kendrick, Allergic rhinitis, [address] unspecified seasonality, [place], [place] [address] [place] unspecified trigger [phone] [place] [address] Social History Tobacco Use Types Packs/Day Years [...] 09/05/2021 9:11 AM CST Please review request. RTING CONSULTANT Telephone Encounter - Tabitha Lombardo LPN - 09/05/2021 9:00 AM REPORTING CONSULTANT Last visit in provider department: 03/27/21 Last [...] Please contact patient to assist with scheduling. RTING CONSULTANT documented in this encounter Plan of Treatment Not on filedocumented as of this encounter Visit Diagnoses Diagnosis Allergic rhinitis, unspecified seasonali ty, unspecified trigger documented in this encounter Care Teams Instructor Of Nursing Relationship Specialty Start Date End Date Dontrell Gallardo MD PCP - General Family Medicine 01/31/21 [address] [place] [address] documented as of this encounter
--- OUTSIDE RECORDS SUMMARY | 2022-05-23 11:25 | XMS_ITS | Encounter Summary ---
:1935 Author Organization [facility] Address [address] [place] [address] Care Team Providers Name Role Phone Dontrell Gallardo MD Primary Care Provider Reason for Visit Reason Comments Follow-up Left leg Encounter Details Date Type Department Care Team Description 02/27/2021 Office Visit [place] Jelly Kendrick Skin infection (Primary [address] MD [place] Dx) [place], [place] [address] [address] [place] [address] Social History Tobacco Use Types Packs/Day Years [...] tissue documented in this encounter Care Teams Metal Spray Operator Relationship Specialty Start Date End Date Dontrell Gallardo MD PCP - General Family Medicine 01/31/21 [address] [place] [address] documented as of this encounter
--- OUTSIDE RECORDS SUMMARY | 2022-05-23 11:25 | XMS_ITS | Encounter Summary ---
:1935 Author Organization [facility] Address [address] [place] [address] Care Team Providers Name Role Phone Dontrell Gallardo MD Primary Care Provider Encounter Details Date Type Department Care Team Description 03/05/2021 Telephone [place] [address] [place], [place] [address] [place], [place] [phone] (Wo rk) Social History Tobacco Use Types Packs/Day Years Used Date Never Smoker Smokeless Tobacco: Never Used Alcohol Use Standard Drinks/Week Comments Yes 0 (1 standard drink = 0.6 oz pure alcoho l) Financial Resource Strain Answer Date Recorded How hard is it for you to pay for the very basics like Not h hutner at all 08/10/2020 food, housing, medical care, [...] to remind her of MRI. MRI Brain [facility] IMPRESSION: 1. Small focus diffusion signal [...] up lesion scheduled for March 21 at [facility] [place]. She also is wondering about why she has not heard from ENT about appointment follow up which she wasrecommended to by another provider at visit on 02/12/2021 for her hospital follow up for vertigo. Advised that she contact that provider Alfonso Eisenberg at [facility] to inquire which ENT physician he was referring to. documented in this encounter Plan of Treatment Not on filedocumented as of this encounter Visit Diagnoses Not on filedocumented in this encounter Care Teams Professor Of Oceanography Relationship Specialty Start Date End Date Dontrell Gallardo MD PCP - General Family Medicine 01/31/[address] [place] [address] documented as of this encounter
--- OUTSIDE RECORDS SUMMARY | 2022-05-23 11:25 | XMS_ITS | Encounter Summary ---
:1935 Author Organization [facility] Address [address] [place] [address] Care Team Providers Name Role Phone Dontrell [...] Primary documented in this encounter Care Teams Thermal Cutter Helper Relationship Specialty Start Date End Date Dontrell Gallardo MD PCP - General Family Medicine 01/31/[address] [place] [address] documented as of this encounter
--- OUTSIDE RECORDS SUMMARY | 2022-05-23 11:26 | XMS_ITS | Encounter Summary ---
:1935 Author Organization [facility] Address [address] [place] [address] Care Team Providers Name Role Phone None, Pcp Primary Care Provider Unavailable Encounter Details Date Type Department Care Team Description 11/15/2020 Immunization Family Medicine [address] [place] [address] Social History Tobacco Use Types Packs/Day Years [...] on filedocumented in this encounter Care Teams Telephone Repairer Relationship Specialty Start Date End Date None, Pcp PCP - General Application Spec 06/12/20 01/30/21 [address] [place] [address] documented as of this encounter
--- OUTSIDE RECORDS SUMMARY | 2022-05-23 11:26 | XMS_ITS | Encounter Summary ---
:1935 Author Organization [facility] Address [address] [place] [address] Care Team Providers Name Role Phone None, Pcp Primary Care Provider Unavailable Reason for Referral Consultation (Routine) - Closed Specialty Diagnoses / Procedures Referred By Contact Refer red To Contact Neurology Diagnoses Neuropathy of right lower extremity Prema Mcwilliams APRN, CNP Neurology [address] [place] [address] [place] [address] Fax: Referral ID Status Reason Start Date Expiration Date Visits V isits Requested Authorized [id number] Closed Specialty 11/19/2020 11/19/2021 1 1 Services Required Scheduling Instructions Please call the Neurology [facility] desk at [phone] to schedule an appointment. INIST SET UP Encounter Details Date Type Department Care Team Description 11/15/2020 Telephone [place] Prema Mcwilliams APRN, CNP [address] [place], [place] [address] [place] [address] [phone] (Wo rk) Social History Tobacco Use Types [...] - 11/19/2020 1:56 PM CST Patient informed. INIST SET UP Addendum Note - Prema Mcwilliams APRN, CNP - 11/19/2020 12:02 PM MACHINIST SET UP Addended by: PREMA MCWILLIAMS on: 11/19/2020 12:02 PM Modules accepted: Orders INIST SET UP Telephone Encounter - Leslie Camilo MD - 11/19/2020 11:58 AM CST Piyush Arciniega, It looks like it's been a few years since she was seen at [facility]. I'd be happy to give things an updated look and see if there is anything else I can add. Just place the consult at your convenience and I'll see her soon!Sincerely, Leslie INIST SET UP Telephone Encounter - Amber Jon RN - 11/16/2020 1:41 PM CST Apologies, wrong provider, Prema - the patient would like to know if you'd think this would be beneficial, if so please place Referral. INIST SET UP Telephone Encounter - Jelly Kendrick MD - 11/16/2020 1:34 PM CST Call Kathryn and let her know that I would be happy to refer her to one of the neurologist at [facility] for consult and evaluation for her numbness/neuropathy in her leg. If she would like meto do this let me know and I will make the referral. INIST SET UP Telephone Encounter - Amber Jon RN - 11/16/2020 1:10 PM CST Patient informed, her abd symptoms aren't bad and she's that for awhile. Her leg pain and numbness is still a concern for her. She feels its mostly the loss of sensation in her feet that worries her. She wonders if it would be beneficial to see a different neurologist possibly at [facility]? INIST SET UP Telephone Encounter - Rosa Wells LPN - 11/16/2020 8:59 AM CST [facility] at [phone] INIST SET UP Telephone Encounter - Prema Mcwilliams APRN, GILL BOX OPERATOR - 11/15/2020 1:57 PM CST Called patient to discussed recent radiology results from [facility]. Left message to call back. Mammogram: negative. May not need to do further imaging per age recommendation, in future. US liver: fatty liver and small stable cyst seen, gallstones and sludge without cholecystitis. (spleen/pancreas/kidneys overall normal/unchanged). Recommend diet and exercise to help with liver/gallbladder function. staty away from tylenol, liverhurting meds, alcohol etc. We can refer patient to nutrition services manager if she likes. Otherwise we have to weigh risk vs benefits at her age; ie if she able to tolerate a gall bladder surgery to get the gall stone out or if she would have more consequences of having a procedure done due to her age. Please see how her Rt leg pain/numbness is doing. Unfortunately [facility] declined the referral. INIST SET UP documented in this encounter Plan of Treatment Scheduled Referrals Name Type Priority Associated Order Schedule Diagnoses Ambulatory referral Outpatient Referral Routine Neuropathy of right Ordered: to Neurology lower extremity 11/19/2020 documented as of this encounter Visit Diagnoses Diagnosis Neuropathy of right lower extremity - Pr imary documented in this encounter Care Teams Exerciser Horse Relationship Specialty Start Date End Date None, Pcp PCP - General Kinesiologist 06/12/20 01/30/21 [address] [place] [address] documented as of this encounter
--- OUTSIDE RECORDS SUMMARY | 2022-05-23 11:26 | XMS_ITS | Encounter Summary ---
:1935 Author Organization [facility] Address [address] [place] [address] Care Team Providers Name Role Phone None, Pcp Primary Care Provider Unavailable Encounter Details Date Type Department Care Team Description 10/18/2020 Immunization Family Medicine [address] [place] [address] Social History Tobacco Use Types Packs/Day Years [...] on filedocumented in this encounter Care Teams Customer Servicer Relationship Specialty Start Date End Date None, Pcp PCP - General Shovel Loader Operator 06/12/20 01/30/21 [address] [place] [address] documented as of this encounter
--- OUTSIDE RECORDS SUMMARY | 2022-05-23 11:26 | XMS_ITS | Encounter Summary ---
:1935 Author Organization [facility] Address [address] [place] [address] Care Team Providers Name Role Phone None, Pcp Primary Care Provider Unavailable Reason for Visit Reason Comments Ear Problem Right Ear Issues Encounter Details Date Type Department Care Team Description 08/10/2020 Office Visit Prasanth Hernandez Jelly Kendrick Acute otitis externa of [address] MD [place] right ear, unspecified [place], [place] [address] type (Primary Dx) [phone] [place] [address] Social History Tobacco Use Types Packs/Day Years [...] Comments Blood Pressure 140/68 08/10/2020 1:29 PM FISH AND WILDLIFE WARDEN Pulse 87 08/10/2020 1:29 PM FISH AND WILDLIFE WARDEN Temperature 36.8 ??C (98.2 ??F) 08/10/2020 1:29 PM FISH AND WILDLIFE WARDEN Respiratory Rate 20 08/10/2020 1:29 PM FISH AND WILDLIFE WARDEN Oxygen Saturation 97% 08/10/2020 1:29 PM FISH AND WILDLIFE WARDEN Inhaled Oxygen Concentration - - Weight 71.9 kg (158 lb 8 oz) 08/10/2020 1:29 PM FISH AND WILDLIFE WARDEN Height 157.6 cm (5' 2.05) 08/10/2020 1:29 PM FISH AND WILDLIFE WARDEN Body Mass Index 28.95 08/10/2020 1:29 PM FISH AND WILDLIFE WARDEN documented in this encounter Progress Notes Jelly [...] us if she gets a yeast infection. AND WILDLIFE WARDEN documented in this encounter Plan of Treatment Not on filedocumented as of this encounter Visit Diagnoses Diagnosis Acute otitis externa of right ear, unspe cified type - Primary documented in this encounter Care Teams Cigarette Tipper Relationship Specialty Start Date End Date None, Pcp PCP - General Oyster Unloader 06/12/20 01/30/21 [address] [place] [address] documented as of this encounter
--- OUTSIDE RECORDS SUMMARY | 2022-05-23 11:26 | XMS_ITS | Encounter Summary ---
:1935 Author Organization [facility] Address [address] [place] [address] Care Team Providers Name Role Phone None, [...] Primary documented in this encounter Care Teams Background Check Coordinator Relationship Specialty Start Date End Date None, Pcp PCP - General Capacity Analyst 06/12/20 01/30/21 [address] [place] [address] documented as of this encounter
--- OUTSIDE RECORDS SUMMARY | 2022-05-23 11:26 | XMS_ITS | Encounter Summary ---
:1935 Author Organization [facility] Address [address] [place] [address] Care Team Providers Name Role Phone Antonia Aldrich TAR POT WORKER, DIFFUSION OPERATOR Primary Care Provider [phone] Encounter Details Date Type Department Care Team Description 06/29/2019 Telephone Prasanth Hernandez Antonia Aldrich, [address] TAR POT WORKER, IV[place] Prasanth Hernandez [place] [address] [address] [facility] [phone] [place], [place] [address] Social History Tobacco Use [...] on filedocumented in this encounter Care Teams Residential Mental Health Worker Relationship Specialty Start Date End Date Antonia Aldrich APRN, CNP PCP - General 04/20/18 05/21/20 [address] [place] [address] documented as of this encounter
--- OUTSIDE RECORDS SUMMARY | 2022-05-23 11:26 | XMS_ITS | Encounter Summary ---
:1935 Author Organization [facility] Address [address] [place] [address] Care Team Providers Name Role Phone None, Pcp Primary Care Provider Unavailable Reason for Visit Reason Onset Date Comments Ear pain 08/17/2020 Encounter Details Date Type Department Care Team Description 08/17/2020 Telephone [place] Jelly Kendrick MD Ear pain [address] [place], [place] [address] [place], [place] [phone] (Wo rk) Social History Tobacco Use Types [...] - 08/17/2020 1:42 PM CST Patient informed EDWARDS DEVELOPER Telephone Encounter - Jelly Kendrick MD - 08/17/2020 1:30 PM CST Let Kathryn know that I have sent to her [facility] in for an anti-itch cream that [...] should stop and then let us know. EDWARDS DEVELOPER Telephone Encounter - Rosa Wells LPN - [...] after surgery to place on her incision. EDWARDS DEVELOPER Telephone Encounter - Rosa Wells LPN - 08/17/2020 8:29 AM CST Itches so bad Pain comes and goes Sometimes its warm and it will go away and it comes back again. Wondering if it could be shingles? EDWARDS DEVELOPER Telephone Encounter - Miryam Pickering - 08/17/2020 8:04 AM CST Patient was told to call if ear is still bothering her. She also has a question about shingles. Please call her at [phone]. EDWARDS DEVELOPER documented in this encounter Plan of Treatment Not on filedocumented as of this encounter Visit Diagnoses Diagnosis Ear itch - Primary documented in this encounter Care Teams Soaking Pits Supervisor Relationship Specialty Start Date End Date None, Pcp PCP - General Benefits Director 06/12/20 01/30/[address] [place] [address] documented as of this encounter
--- OUTSIDE RECORDS SUMMARY | 2022-05-23 11:26 | XMS_ITS | Encounter Summary ---
:1935 Author Organization [facility] Address [address] [place] [address] Care Team Providers Name Role Phone None, Pcp Primary Care Provider Unavailable Reason for Referral Consultation (Routine) - Closed Specialty Diagnoses / Procedures Referred By Contact Refer red To Contact Radiology Diagnoses Elevated liver function tests Suze Tolentino APRN, CNP [place] [address] [address] [facility] [place] [address] [place] [address] [place] [address] Phone: Fax: Referral ID Status Reason Start Date Expiration Date Visits Requ ested Visits Authorized [id number] Closed 11/02/2020 11/02/2021 1 1 Scheduling Instructions RUQ Ultrasound. S BUFFER Encounter Details Date Type Department Care Team Description 11/01/2020 Lab [place] Elevated liver function test s (Primary Dx); [address] Benign paroxysmal positional vertigo, unspecified laterality; [place], [place] [address] Right foot pain [phone] Social History Tobacco Use Types Packs/Day Years [...] value in 6mons. Order will be placed. S BUFFER Suze Tolentino APRN, CNP - 11/01/2020 2:15 PM CST I can put in RUQ US order as well if patient like. Thanks. S BUFFER Suze Tolentino APRN, CNP - 11/01/2020 2:15 PM CST Ok I will order the US thanks. S BUFFER documented in this encounter Plan of Treatment Scheduled Referrals Name Type Priority Associated Order Schedule Diagnoses Ambulatory External Outpatient Referral Routine Elevated liver Ordered: Referral function tests 11/02/2020 documented as of this encounter Procedures Procedure Name Priority Date/Time Associated Comments Diagnosis GLOMERULAR FILTRATION Routine 11/01/2020 2:06 PM Benign paroxy smal Results for this RATE BR[facility] BUFFER positional vertigo, procedur e are in unspecified the results laterality section. Right foot pain CBC BRANCH OFFICE Routine 11/01/2020 2:06 PM Right foot pain R esults for this W/DIFF BR[facility] BUFFER procedure are i n the results section. C-REACTIVE PROTEIN Routine 11/01/2020 2:06 PM Right foot pain Results for this BRASS BUFFER procedure are i n the results section. MAGNESIUM Routine 11/01/2020 2:06 PM Benign paroxysmal Resu lts for this BR[facility] BUFFER positional vertigo, procedur e are in unspecified the results laterality section. COMPREHENSIVE Routine 11/01/2020 2:06 PM Benign paroxysmal Res ults for this METABOLIC PANEL BRASS BUFFER positional vertigo, proce dure are in unspecified the results laterality section. Right foot pain documented in this encounter Results Glomerular filtration rate (GFR) (11/01/2020 2:06 PM BRASS BUFFER) athologist Signature GFR 60 11/02/2020 [facility] 1:49 PM [facility] >60 11/02/2020 [facility] [place] GFR 1:49 PM [facility] Comment: GFR calculated from serum creatinine v alue Chronic Kidney Disease less than 60 mL/m in/1.73 m2 Kidney Failure less than 15 mL/min/1.73 m2 Note: effective 01/27/07 IDMS-Traceable MDRD Study Equation used. Specimen Anatomical Collection Method Collection Time Receive d Time (Source) Location / / Volume Laterality 11/01/2020 2:06 PM 1 2:06 [facility] PM [facility] Suze Tolentino APRN, CNP LAB BLOOD ORDERABLES Performing Organization Address City/[facility]/ZIP Code Phon e Number [facility] [address] [place] [phone] Magnesium (11/01/2020 2:06 PM BRASS BUFFER) athologist Signature Magnesium 1.9 1.6 - 2.3 11/02/2020 [facility] mg/dL 1:49 PM [facility] Specimen Anatomical Collection Method Collection Time Receive d Time (Source) Location / / Volume Laterality Blood 11/01/2020 2:06 PM 1 [facility] 12:50 PM [facility] Suze Tolentino APRN, CNP LAB BLOOD ORDERABLES Performing Organization Address City/[facility]/ZIP Code Phon e Number [facility] [address] [place] [phone] CBC Branch Off w/Diff (11/01/2020 2:06 PM [facility]) P athologist Signature WBC 4.4 3.5 - 10.5 11/01/2020 [facility] K/uL 2:15 PM [facility] RBC 4.43 3.90 - 11/01/2020 [facility] 5.00 M/uL 2:15 PM [facility] [place] Hemoglobin 13.3 12.0 - 11/01/2020 [facility] 15.5 g/dL 2:15 PM [place] [place] Hematocrit 40.0 35.0 - 11/01/2020 [facility] 44.0 % 2:15 PM [place] [place] Platelets 158 150 - 450 11/01/2020 [facility] K/uL 2:15 PM [place] [place] MCV 90.3 81.6 - 11/01/2020 [facility] 98.3 fL 2:15 PM [place] [place] MCH 30.0 26.0 - 11/01/2020 [facility] 32.0 pg 2:15 PM [place] MCHC 33.3 32.0 - 11/01/2020 [facility] 36.0 g/dL 2:15 PM [place] RDW 12.8 11.9 - 11/01/2020 [facility] 15.5 % 2:15 PM [facility] [place] Lymphocytes % 31.8 % 11/01/2020 [facility] 2:15 PM [place] Mid-size Cells 12.6 % 11/01/2020 [facility] 2:15 PM [facility] Granulocytes/Josefa 55.6 % 11/01/2020 [facility] trophils 2:15 PM [place] Lymphocytes 1.4 0.9 - 2.9 11/01/2020 [facility] Absolute K/uL 2:15 PM [place] MIDS Absolute 0.6 0.4 - 1.5 11/01/2020 [facility] K/uL 2:15 PM [place] Granulocytes/Josefa 2.4 1.7 - 7.0 11/01/2020 [facility] trophils K/uL 2:15 PM [place] Absolute Specimen Anatomical Collection Method Collection Time Receive d Time (Source) Location / / Volume Laterality Blood 11/01/2020 2:06 PM 2:09 [facility] PM [facility] Suze Tolentino APRN, CNP LAB BLOOD ORDERABLES Performing Organization Address City/State/ZIP Code Phon e Number [facility] NIKHIL HERNANDEZ [address] [place] [address] C-reactive protein (11/01/2020 2:06 PM [facility]) P athologist Signature CRP 2.8 0.0 - 4.9 11/02/2020 [facility] mg/L 1:53 PM [facility] Specimen Anatomical Collection Method Collection Time Receive d Time (Source) Location / / Volume Laterality Blood (Blood, 11/01/2020 2:06 PM 11/02/19 21 Venous) [facility] 12:50 PM [facility] Suze Tolentino APRN, CNP LAB BLOOD ORDERABLES Performing Organization Address City/State/ZIP Code Phon e Number [facility] [address] [place] [address] (ABNORMAL) Comprehensive metabolic panel (11/01/2020 2:06 PM BR[facility]) Patholo gist Method Time Signature Total Protein 7.0 6.3 - 8.2 11/02/2020 [facility] g/dL 1:49 PM [facility] Albumin, Serum 4.1 3.5 - 5.0 11/02/2020 [facility] g/dL 1:49 PM [facility] Total Bilirubin <0.7 0.1 - 1.0 11/02/2020 [facility] mg/dL 1:49 PM [facility] AST 87 (H) 8 - 43 U/L 11/02/2020 [facility] 1:49 PM [facility] Alkaline 72 38 - 128 11/02/2020 [facility] Phosphatase U/L 1:49 PM [facility] ALT (SGPT) 127 (H) 0 - 34 U/L 11/02/2020 [facility] 1:49 PM [facility] Sodium 140 135 - 145 11/02/2020 [facility] mEq/L 1:49 PM [facility] Potassium 3.8 3.5 - 5.1 11/02/2020 [facility] mEq/L 1:49 PM [facility] Chloride 100 98 - 107 11/02/2020 [facility] mEq/L 1:49 PM [facility] CO2 32 (H) 22 - 29 11/02/2020 [facility] mmol/L 1:49 PM [facility] BUN 18 5 - 25 11/02/2020 [facility] mg/dL 1:49 PM [facility] Creatinine 0.9 0.4 - 1.2 11/02/2020 [facility] mg/dL 1:49 PM [facility] Glucose 83 70 - 100 11/02/2020 [facility] mg/dL 1:49 PM [facility] Calcium, Total,S 9.6 8.4 - 10.2 11/02/2020 [facility] mg/dL 1:49 PM [facility] Fasting? No 11/01/2020 [facility] 2:09 PM [facility] Specimen Anatomical Collection Method Collection Time Receive d Time (Source) Location / / Volume Laterality Blood 11/01/2020 2:06 PM [facility] 12:50 PM [facility] Suze Tolentino APRN, CNP LAB BLOOD ORDERABLES Performing Organization Address City/State/ZIP Code Phon e Number [facility] [address] [place] [address] documented in this encounter Visit Diagnoses Diagnosis Elevated liver function tests - Primary Other abnormal blood chemistry Benign paroxysmal positional vertigo, un specified laterality Right foot pain Pain in soft tissues of limb documented in this encounter Care Teams Operator Automated Process Relationship Specialty Start Date End Date None, Pcp PCP - General Public Affairs Director 06/12/20 01/30/21 [address] [place] [address] documented as of this encounter
--- OUTSIDE RECORDS SUMMARY | 2022-05-23 11:26 | XMS_ITS | Encounter Summary ---
:1935 Author Organization [facility] Address [address] [place] [address] Care Team Providers Name Role Phone Antonia Aldrich APRN, TIME BROKER Primary Care Provider [phone] Reason for Visit Reason Onset Date Comments Spot on chest 01/06/2020 Encounter Details Date Type Department Care Team Description 01/06/2020 Telephone [place] [facility] Antonia Aldrich, Spot on chest [address] APPRENTICE TECHNICIAN, IV[place], [place] [address] [phone] [place], [place] [address] Social History Tobacco Use [...] or time. She is going outside to amiando so she asked that you just leave [...] should be seen in office, please advise. [phone] first, can call cell too if needed [phone] documented in this encounter Plan of Treatment Not on filedocumented as of this encounter Visit Diagnoses Not on filedocumented in this encounter Care Teams Transformer Repairer Relationship Specialty Start Date End Date Antonia Aldrich, APPRENTICE TECHNICIAN, TIME BROKER PCP - General 04/20/18 05/21/20 [address] [facility] [place] [address] documented as of this encounter
--- OUTSIDE RECORDS SUMMARY | 2022-05-23 11:26 | XMS_ITS | Encounter Summary ---
:1935 Author Organization [facility] Address [address] [place] [address] Care Team Providers Name Role Phone None, Pcp Primary Care Provider Unavailable Reason for Visit Reason Comments Medicare Annual Wellness Visit Subsequent Encounter Details Date Type Department Care Team Description 08/10/2020 Clinical Support Prasanth Hernandez Medicare annual wellness vis it, subsequent (Primary Dx); [address] Counseling regarding advance d directives and goals of care Prasanth Hernandez [place] [address] Social History Tobacco Use Types [...] Comments Blood Pressure 140/68 08/10/2020 1:53 PM FORECLOSURE CLERK Pulse 87 08/10/2020 1:53 PM FORECLOSURE CLERK Temperature 36.8 ??C (98.2 ??F) 08/10/2020 1:53 PM FORECLOSURE CLERK Respiratory Rate 20 08/10/2020 1:53 PM FORECLOSURE CLERK Oxygen Saturation 97% 08/10/2020 1:53 PM FORECLOSURE CLERK Inhaled Oxygen Concentration - - Weight 72 kg (158 lb 12.8 oz) 08/10/2020 1:53 PM FORECLOSURE CLERK Height 157.6 cm (5' 2.05) 08/10/2020 1:53 PM FORECLOSURE CLERK Body Mass Index 29 08/10/2020 1:53 PM FORECLOSURE CLERK documented in this encounter Progress Notes Italia Hawthorne RN - 08/10/2020 3:40 PM CST Annual Wellness Visit CARE TEAM / RESOURCES: Patient Care Team: Pcp None as PCP - General (Sprigger) Eye Care: Dr. Ayers, [place] [facility] [place] [facility]: Dr. Tay, [place] Pharmacy: [facility] DELIVERY - [address] [address] [facility] - [address] [address] [facility]-[address] [facility] [address] Other: No Visit Vitals BP 140/68 (BP [...] mg by mouth per week ??? Aspirin Buf,LfVqyv-ZjEdor-EwL, 81 MG tablet Take 81 mg by [...] file Gets together: Not on file Attends yazidism service: Not on file Active member of [...] transfusion before 1991. ?? Those born between 0[birth year]-3819. Glaucoma: Medicare Part B (Medical Insurance) covers [...] of one pack a dayfor 30 years). CLOSURE CLERK documented in this encounter Plan of Treatment Not on filedocumented as of this encounter Visit Diagnoses Diagnosis Medicare annual wellness visit, subseque nt - Primary Counseling regarding advanced directives and goals of care documented in this encounter Care Teams Head Packager Relationship Specialty Start Date End Date None, Pcp PCP - General Sprigger 06/12/20 01/30/21 [address] [place] [address] documented as of this encounter
--- OUTSIDE RECORDS SUMMARY | 2022-05-23 11:26 | XMS_ITS | Encounter Summary ---
:1935 Author Organization [facility] Address [address] [place] [address] Care Team Providers Name Role Phone None, Pcp Primary Care Provider Unavailable Reason for Referral Consultation (Routine) - Closed Specialty Diagnoses / Procedures Referred By Contact Refer red To Contact Radiology Diagnoses Elevated liver function tests Prema Mcwilliams APRN, CNP [address] - [place], [place] [address] [place] [address] [place] [address] Phone: Fax: Referral ID Status Reason Start Date Expiration Date Visits Requ ested Visits Authorized [id number] Closed 11/05/2020 11/05/2021 1 1 Scheduling Instructions Liver Ultrasound CORE DRILL OPERATOR HELPER Reason for Visit Reason Onset Date Comments referral question 11/05/2020 Encounter Details Date Type Department Care Team Description 11/05/2020 Telephone [place] Ángel, Pcp referral question [address] [place], [place] [address] [place], [place] [phone] [address] Social History Tobacco Use Types Packs/Day [...] Mcwilliams APRN, CNP - 11/05/2020 3:06 PM SHOT CORE DRILL OPERATOR HELPER Addended by: PREMA MCWILLIAMS on: 11/05/2020 03:06 PM Modules accepted: Orders CORE DRILL OPERATOR HELPER Telephone Encounter - Prema Mcwilliams APRN, CNP - 11/05/2020 2:57 PM CST Referral stated in scheduling comment to [facility] for RUQ Ultrasound. I did completea new referral now stating liver ultrasound. CORE DRILL OPERATOR HELPER Telephone Encounter - Amber Jon RN - 11/05/2020 2:39 PM CST RN spoke to patient. She is stating she was to get a neurology referral to [place] and a liver ultrasound order to [facility]. These orders were placed on 11/02 however the radiology order doesnot state what specific test the provider would like. They are requesting that you place another referral and state in clinical question being asked liver ultrasound. CORE DRILL OPERATOR HELPER Telephone Encounter - Rosa Wells LPN - 11/05/2020 11:25 AM CST Two referrals were created by you on 11/02. One to [facility] and one to [place]. Per your request we have canceled the [place] referral stating radiology. CORE DRILL OPERATOR HELPER Telephone Encounter - Prema Mcwilliams APRN, CNP - 11/05/2020 9:38 AM CST I called to let pt know I put in neurology referral at [place] on 11/02/20. The referral did not state [place]. It stated [facility] neurology. CORE DRILL OPERATOR HELPER Telephone Encounter - Rosa Wells LPN - 11/05/2020 9:25 AM CST [facility] called and was not sure what Radiology test you were requesting. Can you look at that and place a new referral with which ever test you would like completed. Then send this message back to the nursing staff to schedule. Much appreciated. CORE DRILL OPERATOR HELPER Telephone Encounter - Faviola Ivy - 11/05/2020 9:21 AM CST Johny with [facility] called stating he has received a referral but is not sure what it is for. Please call Johny at [phone] to advise. CORE DRILL OPERATOR HELPER documented in this encounter Plan of Treatment Scheduled Referrals Name Type Priority Associated Order Schedule Diagnoses Ambulatory External Outpatient Referral Routine Elevated liver Ordered: Referral function tests 11/05/2020 documented as of this encounter Visit Diagnoses Diagnosis Elevated liver function tests - Primary Other abnormal blood chemistry documented in this encounter Care Teams Granulator Tender Relationship Specialty Start Date End Date None, Pcp PCP - General Online Marketing Specialist 06/12/20 01/30/[address] [place] [phone] documented as of this encounter
--- OUTSIDE RECORDS SUMMARY | 2022-05-23 11:26 | XMS_ITS | Encounter Summary ---
:1935 Author Organization [facility] Address [address] [place] [address] Care Team Providers Name Role Phone Antonia Aldrich APRN, JAPANESE INTERPRETER Primary Care Provider [phone] Reason for Visit Reason Onset Date Comments Fungus med refill 11/14/2019 Encounter Details Date Type Department Care Team Description 11/14/2019 Telephone [place] Antonia Aldrich, Fungus med refill [address] [place], IVANA [place], [place] [address] [address] [facility] [phone] [place], [place] [address] Social History Tobacco Use [...] LPN - 11/15/2019 4:14 PM CST Dusregard RESSURE THERAPIST Telephone Encounter - Faviola Ivy - 11/15/2019 4:12 PM CST Pt returned call. Pt was in for lab work today. RESSURE THERAPIST Telephone Encounter - Rosa Wells LPN - 11/15/2019 10:45 AM CST LMTC RESSURE THERAPIST Telephone Encounter - Rosa Wells LPN - 11/14/2019 11:20 AM CST LMTC RESSURE THERAPIST Telephone Encounter - Antonia Aldrich APRN, JAPANESE INTERPRETER - 11/14/2019 11:05 AM ACUPRESSURE THERAPIST Can the patient return for a liver panel? This is been placed. Thanks Harman RESSURE THERAPIST Telephone Encounter - Amber Jon RN - 11/14/2019 10:52 AM CST Please advise. RESSURE THERAPIST Telephone Encounter - Faviola Ivy - 11/14/2019 10:19 AM CST Pt called wondering if Harman Aldrich will send a refill of her fungus medication to [facility] pharmacy.Please call Pt's cell at [phone] to advise. RESSURE THERAPIST documented in this encounter Plan of Treatment Not on filedocumented as of this encounter Visit Diagnoses Not on filedocumented in this encounter Care Teams Insurance Appraiser Relationship Specialty Start Date End Date Antonia Aldrich, BUSHING PRESS OPERATOR, JAPANESE INTERPRETER PCP - General 04/20/18 05/21/20 [address] [facility] [place] [address] documented as of this encounter
--- OUTSIDE RECORDS SUMMARY | 2022-05-23 11:26 | XMS_ITS | Encounter Summary ---
:1935 Author Organization [facility] Address [address] [place] [address] Care Team Providers Name Role Phone Antonia Aldrich APRN, MEMORY CARE PROGRAM RESIDENT Primary Care Provider [phone] Reason for Visit Reason Comments Immunizations flu Encounter Details Date Type Department Care Team Description 07/13/2019 Immunization [place] [address] [place], [place] [address] Social History Tobacco Use [...] filedocumented in this encounter Care Teams Insurance Verification Specialist Relationship Specialty Start Date End Date Antonia Aldrich APRN, MEMORY CARE PROGRAM RESIDENT PCP - General 04/20/18 05/21/20 [address] [place] [address] documented as of this encounter
--- OUTSIDE RECORDS SUMMARY | 2022-05-23 11:26 | XMS_ITS | Encounter Summary ---
:1935 Author Organization [facility] Address [address] [place] [address] Care Team Providers Name Role Phone Antonia Aldrich APRN, DIALYSIS CHIEF EQUIPMENT TECHNICIAN Primary Care Provider [phone] Encounter Details Date Type Department Care Team Description 10/17/2019 Lab [place] Screening for hyperlipidemia ; [address] Screening, anemia, deficienc y, iron; [place], [place] [address] Screening for diabetes inna oliveros; [phone] Medication benjamin torwendi encounter Social History Tobacco [...] for diabetes Results for this FILTRATION RATE FOREIGN EXCHANGE POSITION CLERK mellitus procedure ar e in the results section. CBC BRANCH OFFICE Routine 10/17/2019 8:02 AM Screening, anemia , Results for this W/DIFF FOREIGN EXCHANGE POSITION CLERK deficiency, iron procedure a re in the results section. HEPATIC FUNCTION Routine 10/17/2019 8:02 AM Medication monitor ing Results for this PANEL FOREIGN EXCHANGE POSITION CLERK encounter procedure are i n the results section. LIPID PANEL Routine 10/17/2019 8:02 AM Screening for Results for this FOREIGN EXCHANGE POSITION CLERK hyperlipidemia procedure are in the results section. BASIC METABOLIC Routine 10/17/2019 8:02 AM Screening for diabe damian Results for this PANEL FOREIGN EXCHANGE POSITION CLERK mellitus procedure are i n the results section. documented in this encounter Results Glomerular filtration rate (GFR) (10/17/2019 8:02 AM FOREIGN EXCHANGE POSITION CLERK) athologist Signature GFR >60 10/17/2019 [facility] 8:17 AM [facility] >60 10/17/2019 [facility] Nigerien GFR 8:17 AM [facility] Comment: GFR calculated from serum creatinine v alue Chronic Kidney Disease less than 60 mL/m in/1.73 m2 Kidney Failure less than 15 mL/min/1.73 m2 Note: effective 01/27/07 IDMS-Traceable MDRD Study Equation used. Specimen Anatomical Collection Method Collection Time Receive d Time (Source) Location / / Volume Laterality 10/17/2019 8:02 AM 0 8:02 FOREIGN EXCHANGE POSITION CLERK AM FOREIGN EXCHANGE POSITION CLERK Antonia Aldrich APRN, DIALYSIS CHIEF EQUIPMENT TECHNICIAN LAB BLOOD ORDERABLES Performing Organization Address City/State/ZIP Code Phon e Number [facility] [address] [place] [phone] (ABNORMAL) Liver panel (10/17/2019 8:02 AM FOREIGN EXCHANGE POSITION CLERK) Analysis Performed At Patho logist Time Signature Total Protein 6.5 6.3 - 8.2 10/17/2019 [place] g/dL 12:58 PM [facility] Albumin, Serum 3.9 3.5 - 5.0 10/17/2019 [place] g/dL 12:58 PM [facility] Total Bilirubin <0.7 0.1 - 1.0 10/17/2019 [place] mg/dL 12:58 PM [facility] Bilirubin, <0.1 0.0 - 0.3 10/17/2019 [place] Direct mg/dL 12:58 PM [facility] AST 54 (H) 8 - 43 U/L 10/17/2019 [place] 12:58 PM [facility] Alkaline 62 38 - 128 10/17/2019 [place] Phosphatase U/L 12:58 PM [facility] ALT (SGPT) 95 (H) 0 - 34 U/L 10/17/2019 [place] 12:58 PM [facility] Specimen Anatomical Collection Method Collection Time Receive d Time (Source) Location / / Volume Laterality Blood (Blood, 10/17/2019 8:02 AM 10/17/19 20 Venous) FOREIGN EXCHANGE POSITION CLERK 12:15 PM FOREIGN EXCHANGE POSITION CLERK Antonia Aldrich APRN, CNP LAB BLOOD ORDERABLES Performing Organization Address City/State/ZIP Code Phon e Number [facility] [address] [place] [address] (ABNORMAL) Basic metabolic panel (10/17/2019 8:02 AM FOREIGN EXCHANGE POSITION CLERK) P athologist Signature Sodium 142 135 - 145 10/17/2019 [facility] mmol/L 8:17 AM FOREIGN EXCHANGE POSITION CLERK [place] Potassium 3.6 3.5 - 5.1 10/17/2019 [facility] mmol/L 8:17 AM FOREIGN EXCHANGE POSITION CLERK [place] Comment: . Chloride 101 98 - 107 mmol/L 10/17/2019 8:17 AM FOREIGN EXCHANGE POSITION CLERK [facility] [place] Comment: . CO2 31 (H) 22 - 29 mmol/L 10/17/2019 8:17 AM FOREIGN EXCHANGE POSITION CLERK [facility] [place] Comment: . Creatinine 0.8 0.4 - 1.2 mg/dL 10/17/2019 8:17 AM FOREIGN EXCHANGE POSITION CLERK [facility] [place] Comment: . BUN 18 5 - 25 mg/dL 10/17/2019 8:17 AM FOREIGN EXCHANGE POSITION CLERK [facility] [place] Comment: . Glucose 111 (H) 70 - 100 mg/dL 10/17/2019 8:17 AM FOREIGN EXCHANGE POSITION CLERK [facility] [place] Calcium, Total,S 9.4 8.4 - 10.2 mg/dL 10/17/2019 8:17 AM FOREIGN EXCHANGE POSITION CLERK [facility] [place] Comment: . Specimen Anatomical Collection Method Collection Time Receive d Time (Source) Location / / Volume Laterality Blood 10/17/2019 8:02 AM 0 8:06 FOREIGN EXCHANGE POSITION CLERK AM FOREIGN EXCHANGE POSITION CLERK Antonia Aldrich COMMUNITY EDUCATOR, DIALYSIS CHIEF EQUIPMENT TECHNICIAN LAB BLOOD ORDERABLES Performing Organization Address City/State/ZIP Code Phon e Number [facility] [place] [address] [place] [address] (ABNORMAL) CBC Branch Off w/Diff (10/17/2019 8:02 AM FOREIGN EXCHANGE POSITION CLERK) [facility] Method Time Signature WBC 3.5 3.5 - 10.5 10/17/2019 [facility] K/uL 8:08 AM FOREIGN EXCHANGE POSITION CLERK [place] RBC 4.28 3.90 - 10/17/2019 [facility] 5.00 M/uL 8:08 AM FOREIGN EXCHANGE POSITION CLERK [place] Hemoglobin 13.2 12.0 - 10/17/2019 [facility] 15.5 g/dL 8:08 AM FOREIGN EXCHANGE POSITION CLERK [place] Hematocrit 38.7 35.0 - 10/17/2019 [facility] 44.0 % 8:08 AM FOREIGN EXCHANGE POSITION CLERK [place] Platelets 147 (L) 150 - 450 10/17/2019 [facility] K/uL 8:08 AM FOREIGN EXCHANGE POSITION CLERK [place] MCV 90.4 81.6 - 10/17/2019 [facility] 98.3 fL 8:08 AM FOREIGN EXCHANGE POSITION CLERK [place] MCH 30.8 26.0 - 10/17/2019 [facility] 32.0 pg 8:08 AM FOREIGN EXCHANGE POSITION CLERK [place] MCHC 34.1 32.0 - 10/17/2019 [facility] 36.0 g/dL 8:08 AM FOREIGN EXCHANGE POSITION CLERK [place] RDW 12.7 11.9 - 10/17/2019 [facility] 15.5 % 8:08 AM FOREIGN EXCHANGE POSITION CLERK [place] Lymphocytes % 37.4 18.0 - 10/17/2019 [facility] 45.0 % 8:08 AM FOREIGN EXCHANGE POSITION CLERK [place] Mid-size Cells 13.5 (H) 3.3 - 10.1 10/17/2019 [facility] % 8:08 AM FOREIGN EXCHANGE POSITION CLERK [place] Granulocytes/Josefa 49.1 45.8 - 10/17/2019 [facility] trophils 73.7 % 8:08 AM FOREIGN EXCHANGE POSITION CLERK [place] Lymphocytes 1.3 0.9 - 2.9 10/17/2019 [facility] Absolute K/uL 8:08 AM FOREIGN EXCHANGE POSITION CLERK [place] MIDS Absolute 0.5 0.2 - 0.8 10/17/2019 [facility] K/uL 8:08 AM FOREIGN EXCHANGE POSITION CLERK [place] Granulocytes/Josefa 1.7 (L) 2.1 - 8.7 10/17/2019 [facility] NIKHIL trophils K/uL 8:08 AM [facility] Absolute Specimen Anatomical Collection Method Collection Time Receive d Time (Source) Location / / Volume Laterality Blood 10/17/2019 8:02 AM 0 8:06 FOREIGN EXCHANGE POSITION CLERK AM FOREIGN EXCHANGE POSITION CLERK Antonia Aldrich APRN, DIALYSIS CHIEF EQUIPMENT TECHNICIAN LAB BLOOD ORDERABLES Performing Organization Address City/State/ZIP Code Phon e Number [facility] NIKHIL HERNANDEZ [address] [place] [address] Lipid panel (10/17/2019 8:02 AM FOREIGN EXCHANGE POSITION CLERK) athologist Signature Cholesterol 159 0 - 199 10/17/2019 [facility] mg/dL 12:58 PM [facility] Comment: Recommended by National Cholesterol Education Program (ATP III) -------- Cholesterol Ranges -------- <200 ? Desirable 200-239 ? Borderline high >=240 ? High Triglycerides 122 0 - 149 mg/dL 10/17/2019 12:58 PM [facility] Comment: -------- TRIG Ranges -------- <150 ?Normal 150-199 ? Borderline high 200-499 ? High >=500 ? Very high HDL 44 40 - 60 mg/dL 10/17/2019 12:[address] [facility] Comment: -------- HDL Ranges -------- <40 ?Low 40-59 ?Normal >=60 ? Optimal LDL Calculated 91 0 - 99 mg/dL 10/17/2019 12:58 PM [facility] Comment: -------- LDL Ranges -------- <100 ? Optimal 100-129 ?Near optimal/above op timal 130-159 ?Borderline high 160-189 ?High >=190 ?Very high Fasting? Yes 10/17/2019 8:06 AM FOREIGN EXCHANGE POSITION CLERK [facility] Specimen Anatomical Collection Method Collection Time Receive d Time (Source) Location / / Volume Laterality Blood 10/17/2019 8:02 AM 0 FOREIGN EXCHANGE POSITION CLERK 12:15 PM FOREIGN EXCHANGE POSITION CLERK Antonia Aldrich APRN, DIALYSIS CHIEF EQUIPMENT TECHNICIAN LAB BLOOD ORDERABLES Performing Organization Address City/State/[facility] [[email or web address] Code Phon e Number [facility] [address] [place] [address] documented in this encounter Visit Diagnoses Diagnosis Screening for hyperlipidemia Screening for lipoid disorders Screening, anemia, deficiency, iron Screening for iron deficiency anemia Screening for diabetes mellitus Medication monitoring encounter Encounter for therapeutic drug monitorin g documented in this encounter Care Teams Incident Response Lead Relationship Specialty Start Date End Date Antonia Aldrich APRN, DIALYSIS CHIEF EQUIPMENT TECHNICIAN PCP - General 04/20/18 05/21/[address] [place] [address] documented as of this encounter
--- OUTSIDE RECORDS SUMMARY | 2022-05-23 11:26 | XMS_ITS | Encounter Summary ---
:[address] [facility] Address [address] [place] [address] Care Team Providers Name Role Phone Antonia Aldrich APRN, WEATHERIZATION ADMINISTRATOR Primary Care Provider [phone] Reason for Visit Reason Comments lesions chest x 2 Nail Problem fungus-taking Lamisil x 3 mo nths, asking for refill Encounter Details Date Type Department Care Team Description 01/11/2020 Office Visit [place] Kaitlynn Romero Keratosis, inflamed seborrhe ic (Primary Dx); [address] [place] Onychomycosis; [place], [place] Elevated li aaron function tests [phone] Social History Tobacco Use Types Packs/Day Years [...] and looked at her imaging test through [place] including CT and liver ultrasound. She had been identified as having fatty liver. Discussed recommendation to repeat imaging at some point but because of current pandemic, she is hesitant to go to [place]. I think it is reasonable for her [...] chemistry documented in this encounter Care Teams Stand In Relationship Specialty Start Date End Date Antonia Aldrich, MILLING MACHINIST, WEATHERIZATION ADMINISTRATOR PCP - General 04/20/18 05/21/20 100 [facility] [place] [address] documented as of this encounter
--- OUTSIDE RECORDS SUMMARY | 2022-05-23 11:26 | XMS_ITS | Encounter Summary ---
:[address] [facility] Address [address] [place] [address] Care Team Providers Name Role Phone Antonia Aldrich AIR CONDITIONING SPECIALIST, ASSEMBLY LINE ROBOT OPERATOR Primary Care Provider [phone] Reason for Visit Reason Onset Date Comments Rochelle D refill 05/07/2020 Encounter Details Date Type Department Care Team Description 05/07/2020 Telephone [place] Antonia Aldrich, Rochelle D refill [address] [place], [place], [place] [address] [address] [facility] [address] [phone] [place], [place] [address] Social History Tobacco Use [...] CDT RX faxed. Telephone Encounter - Amber Jno RN - 05/07/2020 1:13 PM CDT Please fax to [facility]. Telephone Encounter - Faviola Ivy - 05/07/2020 11:42 AM CDT Rina with [facility] called stating Pt has previously had her Rochelle D filled by Harman Aldrich through [facility]. Pt then had her Rx refilled at a different facility. Now Pt wants it refilled at [facility] again. Even though there are refills left for it, since it's a controlled substance the pharmacy needs a new Rx sent to them - they can't just transfer it. Please call Rina at [phone] with any questions. documented in this encounter Plan of Treatment Not on filedocumented as of this encounter Visit Diagnoses Diagnosis Allergic rhinitis, unspecified seasonali ty, unspecified trigger documented in this encounter Care Teams Damage Inside Adjuster Relationship Specialty Start Date End Date Antonia Aldrich, AIR CONDITIONING SPECIALIST, ASSEMBLY LINE ROBOT OPERATOR PCP - General 04/20/18 05/21/[address] [place] [address] documented as of this encounter
--- OUTSIDE RECORDS SUMMARY | 2022-05-23 11:26 | XMS_ITS | Encounter Summary ---
:1935 Author Organization [facility] Address [address] [place] [address] Care Team Providers Name Role Phone Antonia Aldrich SLUDGE FILTRATION ATTENDANT, FOUNDRY METALLURGIST Primary Care Provider [phone] Encounter Details Date Type Department Care Team Description 10/31/2019 Telephone [place] Antonia Aldrich, [address] SLUDGE FILTRATION ATTENDANT, [place] Prasanth [place] [address] 100 [facility] [phone] [place], [place] [address] Social History Tobacco Use [...] 9:17 AM CST Rx faxed as requested. NG MACHINE OPERATOR Telephone Encounter - Rosa Wells LPN - 10/31/2019 8:48 AM CST Please fax the Rochelle prescription to [facility] CF NG MACHINE OPERATOR documented in this encounter Plan of Treatment Not on filedocumented as of this encounter Visit Diagnoses Not on filedocumented in this encounter Care Teams Implementation Specialist Relationship Specialty Start Date End Date Antonia Aldrich APRN, FOUNDRY METALLURGIST PCP - General 04/20/18 05/21/[address] [place] [address] [place]HE[place] [address] documented as of this encounter
--- OUTSIDE RECORDS SUMMARY | 2022-05-23 11:26 | XMS_ITS | Encounter Summary ---
:1935 Author Organization [facility] Address [address] [place] [address] Care Team Providers Name Role Phone None, Pcp Primary Care Provider Unavailable Reason for Visit Reason Comments Numbness legs and feet Tingling Consultation (Routine) - Closed Specialty Diagnoses / Procedures Referred By Contact Refer red To Contact Neurology Diagnoses Neuropathy of right lower extremity Suze Tolentino, PATHOLOGY LABORATORY AIDES TEACHER, BIOINFORMATICS TECHNICIAN [facility] [address] [place] [address] [place] [address] Fax: Referral ID Status Reason Start Date Expiration Date Visits V isits Requested Authorized [id number] Closed Specialty 11/19/2020 11/19/2021 1 1 Services Required Encounter Details Date Type Department Care Team Description 12/04/2020 Consult [facility] Uziel Turpin, Polyneuropathy (Primary [address] Dx) [place] [address] [address] [phone] [address] (Wo rk) Social History Tobacco Use Types [...] of the lumbar spine was performed at [facility] in 2009 which showed multilevel degenerative changes [...] Regarding social history she lives in a [employer]. She had retired from a [employer] business. She does not smoke or drink. [...] in terms of fine finger movements and mmyyei-thqh-nqmayg is intact. On assessment of sensation, light [...] Total visit time of 1 hour including tuhz-ml-uxsc and chart time. documented in this encounter Plan of Treatment Not on filedocumented as of this encounter Results (ABNORMAL) Monoclonal protein study, serum (12/04/2020 3:59 PM CDT) [facility] Method Time Signature Protein, Total 6.0 (L) 6.3 - 7.9 12/06/2020 [facility] g/dL 9:37 AM CDT LABORATORIES Albumin, Serum 3.1 (L) 3.4 - 4.7 12/06/2020 [facility] g/dL 9:37 AM CDT LABORATORIES Ygoyl-4-Czohlyv 0.3 0.1 - 0.3 12/06/2020 [facility] n g/dL 9:37 AM CDT LABORATORIES Zddrw-9-Fmldkkb 0.9 0.6 - 1.0 12/06/2020 [facility] n g/dL 9:37 AM [facility] LABORATORIES Beta Globulin 0.9 0.7 - 1.2 12/06/2020 [facility] g/dL 9:37 AM [facility] LABOR[facility]IES Gamma Globulin 0.9 0.6 - 1.6 12/06/2020 [facility] g/dL 9:37 AM [facility]T LAB[facility]IES A/G Ratio 1.08 12/06/2020 [facility] 9:37 AM CDT LAB[facility]ATORIES Impression - 12/06/2020 [facility] 9:37 AM CDT LABORATORIES Comment: No apparent monoclonal protein on serum electrophoresis. See Isotype. M-Protein Isotype SEE BELOW 12/06/2020 9:37 AM CDT [facility] MALDI-TOF MS [facility] Comment: No monoclonal protein detected. ADDITIONAL INFORMATIO N The submitted sample was assayed by five separate immunopurifications for IgG, IgA, IgM, k appa and lambda. The result reflects the findings of [facility] miriam no monoclonal protein detected or those monoclonal imm unoglobulins that were detected. This test was developed and its performa nce characteristics determined by [facility] in a manner co nsistent with CLIA requirements. This test has not been garth ared or approved by the U.S. Food and Drug Administration. Flag, M-Protein Negative Negative 12/06/2020 9:37 AM [facility] Isotype CDT LABORATORIES Comment: Test Performed by: [facility] [address] [address] Resource Director: Mark Pittman M.D. Ph. D.; CLIA# [id number] Therapeutic Antibody Not Provided 12/06/2020 9:37 AM [facility] Administered? CDT LABORATORIES Specimen Anatomical Collection Method Collection Time Receive d Time (Source) Location / / Volume Laterality Blood (Blood, 12/04/2020 3:59 PM 12/05/19 21 4:36 Venous) CDT PM CDT Uziel Turpin MD LAB BLOOD ORDERABLES Performing Organization Address City/State/ZIP Code Phon e Number [facility] see result attachment for specific address Vitamin B12 (12/04/2020 3:59 PM CDT) athologist Signature Vitamin B-12 711 012 - 689 12/04/2020 [facility] pg/mL 6:10 PM CDT CENTER LABORATORY [...] MD LAB BLOOD ORDERABLES Performing Organization Address City/[facility]/ZIP Code Phon e Number [facility] [address] [place] [address] Hemoglobin A1c (12/04/2020 3:59 PM CDT) P athologist Signature Hemoglobin A1C 5.4 4.0 - 5.6 12/04/2020 [facility] % A1C 5:26 PM CDT [...] MD LAB BLOOD ORDERABLES Performing Organization Address City/[facility]/ZIP Code Phon e Number [facility] [address] [place] [address] documented in this encounter Visit Diagnoses Diagnosis 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
--- OUTSIDE RECORDS SUMMARY | 2022-05-23 11:26 | XMS_ITS | Encounter Summary ---
:1935 Author Organization [facility] Address [address] [place] [address] Care Team Providers Name Role Phone Antonia Aldrich TRAVEL PHYSICAL THERAPIST, COOLER CONVEYOR LOADER Primary Care Provider [phone] Encounter Details Date Type Department Care Team Description 11/14/2019 Orders Only [place] Antonia Aldrich, Medication monitoring [address] [place] N[place] encounter (Primary VAUGHN Mitchell [address] Dx) [address] [place] [address] Social History Tobacco Use Types Packs/Day Years [...] Results (ABNORMAL) Liver panel (11/15/2019 1:09 PM PERMASTONE APPLICATOR) Analysis Performed At Patho logist Time Signature Total Protein 7.4 6.3 - 8.2 11/16/2019 [place] g/dL 1:40 PM [facility] Albumin, Serum 4.3 3.5 - 5.0 11/16/2019 [place] g/dL 1:40 PM [facility] Total Bilirubin <0.7 0.1 - 1.0 11/16/2019 [place] mg/dL 1:40 PM [facility] Bilirubin, <0.1 0.0 - 0.3 11/16/2019 [place] Direct mg/dL 1:40 PM [facility] AST 54 (H) 8 - 43 U/L 11/16/2019 [facility] 1:40 PM [facility] Alkaline 70 38 - 128 11/16/2019 [place] Phosphatase U/L 1:40 PM [facility] ALT (SGPT) 90 (H) 0 - 34 U/L 11/16/2019 [place] 1:40 PM [facility] Specimen Anatomical Collection Method Collection Time Receive d Time (Source) Location / / Volume Laterality Blood (Blood, 11/15/2019 1:09 PM 11/16/19 1:09 Venous) PERMASTONE APPLICATOR PM PERMASTONE APPLICATOR Antonia Aldrich APRN COOLER CONVEYOR LOADER LAB BLOOD ORDERABLES Performing Organization Address City/State/ZIP Code Phon e Number [facility] [address] [place] [address] documented in this encounter Visit Diagnoses Diagnosis Medication monitoring encounter - Primar y Encounter for therapeutic drug monitorin g documented in this encounter Care Teams Real Estate Sales Agent Relationship Specialty Start Date End Date Antonia Aldrich APRN, COOLER CONVEYOR LOADER PCP - General 04/20/18 05/21/20 100 [place] [address] documented as of this encounter
--- OUTSIDE RECORDS SUMMARY | 2022-05-23 11:26 | XMS_ITS | Encounter Summary ---
:1935 Author Organization [facility] Address [address] [place] [address] Care Team Providers Name Role Phone Dontrell Gallardo MD Primary Care Provider Reason for Visit Reason Onset Date Comments Med Refill 12/05/2020 Encounter Details Date Type Department Care Team Description 12/05/2020 Refill [place] Jelly Kendrick, Allergic rhinitis, [address] unspecified seasonality, [place], [place] [address] [address] unspecified trigger [phone] [place] [address] Social History Tobacco Use Types Packs/Day Years [...] this encounter Miscellaneous Notes Telephone Encounter - Itaila Hawthorne RN - 12/05/2020 4:41 PM CDT [...] trigger documented in this encounter Care Teams Oil Operator Relationship Specialty Start Date End Date Dontrell Gallardo MD PCP - General Family Medicine 01/31/[address] [place] [address] documented as of this encounter
--- OUTSIDE RECORDS SUMMARY | 2022-05-23 11:26 | XMS_ITS | Encounter Summary ---
:1935 Author Organization [facility] Address [address] [place] [address] Care Team Providers Name Role Phone Unavailable Primary Care Provider Unavailable Reason for Visit Reason Onset Date Comments Omeprazole refill 06/04/2020 Encounter Details Date Type Department Care Team Description 06/04/2020 Telephone [place] Jelly Kendrick, Omeprazole refill [address] [place], [place] [address] [address] [place] [phone] [place] [address] (Wo rk) Social History Tobacco Use Types [...] it's ready yet. Please call Pt at [phone] to advise. documented in this encounter Plan of Treatment Not on filedocumented as of this encounter Visit Diagnoses Diagnosis Gastroesophageal reflux disease, esophag itis presence not specified documented in this encounter
--- OUTSIDE RECORDS SUMMARY | 2022-05-23 11:26 | XMS_ITS | Encounter Summary ---
:1935 Author Organization [facility] Address [address] [place] [address] Care Team Providers Name Role Phone Antonia Aldrich APRN, CNP Primary Care Provider [phone] Reason for Visit Reason Comments Ear Drainage Encounter Details Date Type Department Care Team Description 10/13/2019 Office Visit Prasanth Hernandez Antonia Aldrich in auditory canal on examination (Primary Dx); [address] M, [place] Onychomycosis; [place], [place] [address] Skin lesions; [address] [place] [address] Medication monitoring encounter; [phone] Screenin g for hyperlipidemia; Screening for d [...] Comments Blood Pressure 142/82 10/13/2019 10:38 AM INDUCTION HEAT TREATER Pulse 86 10/13/2019 10:38 AM INDUCTION HEAT TREATER Temperature 35.7 ??C (96.3 ??F) 10/13/2019 10:38 AM INDUCTION HEAT TREATER Respiratory Rate 16 10/13/2019 10:38 AM INDUCTION HEAT TREATER Oxygen Saturation 96% 10/13/2019 10:38 AM INDUCTION HEAT TREATER Inhaled Oxygen Concentration - - Weight 72.6 kg (160 lb) 10/13/2019 10:38 AM INDUCTION HEAT TREATER Height 160 cm (5' 2.99) 10/13/2019 10:38 AM INDUCTION HEAT TREATER Body Mass Index 28.35 10/13/2019 10:38 AM INDUCTION HEAT TREATER documented in this encounter Patient Instructions Patient InstructionsChharshad Aldrich APRN, CNP - 10/13/2019 10:40 AM INDUCTION HEAT TREATER Return for fasting labs CTION HEAT TREATER documented in this encounter Progress Notes Antonia [...] this plan of care. Antonia Aldrich APRN, FLAGSETTER CTION HEAT TREATER Anne Marie Arango MA - 10/13/2019 10:40 AM CSTAssociated Order(s): Ear cerumen removal Post-Procedure Diagnose(s): Impacted cerumen of both ears Nurse Procedure Note Ear cerumen removal Date/Time: 10/13/2019 11:26 AM Performed by: Anne Marie Arango MA Authorized by: Antonia Aldrich APRN, FLAGSETTER Consent: Consent obtained: Verbal Consent given by: [...] with minimal cerumen removed. Discussed with provider. CTION HEAT TREATER documented in this encounter Plan of Treatment Not on filedocumented as of this encounter Procedures Procedure Name Priority Date/Time Associated Diagnosis Comme nts EAR CERUMEN REMOVAL Routine 10/13/2019 10:40 AM Cerumen in aud itory Results for this INDUCTION HEAT TREATER canal on examination procedu re are in the results section. documented in this encounter Results Lipid panel (10/17/2019 8:02 AM INDUCTION HEAT TREATER) athologist Signature Cholesterol 159 0 - 199 10/17/2019 [facility] mg/dL 12:58 PM [facility] Comment: Recommended by National Cholesterol Education Program (ATP III) -------- Cholesterol Ranges -------- <200 ? Desirable 200-239 ? Borderline high >=240 ? High Triglycerides 122 0 - 149 mg/dL 10/17/2019 12:58 PM [facility] Comment: -------- TRIG Ranges -------- <150 ?Normal 150-199 ? Borderline high 200-499 ? High >=500 ? Very high HDL 44 40 - 60 mg/dL 10/17/2019 12:[address] [facility] Comment: -------- HDL Ranges -------- <40 ?Low 40-59 ?Normal >=60 ? Optimal LDL Calculated 91 0 - 99 mg/dL 10/17/2019 12:58 PM [facility] Comment: -------- LDL Ranges -------- <100 ? Optimal 100-129 ?Near optimal/above op timal 130-159 ?Borderline high 160-189 ?High >=190 ?Very high Fasting? Yes 10/17/2019 8:06 AM [facility] Specimen Anatomical Collection Method Collection Time Receive d Time (Source) Location / / Volume Laterality Blood 10/17/2019 8:02 AM 0 INDUCTION HEAT TREATER 12:15 PM INDUCTION HEAT TREATER Antonia Aldrich PLASTIC FINISHER, FLAGSETTER LAB BLOOD ORDERABLES Performing Organization Address City/State/ZIP Code Phon e Number [facility] [address] [place] [address] (ABNORMAL) CBC Branch Off w/Diff (10/17/2019 8:02 AM INDUCTION HEAT TREATER) [facility] Method Time Signature WBC 3.5 3.5 - 10.5 10/17/2019 [facility] K/uL 8:08 AM INDUCTION HEAT TREATER [place] RBC 4.28 3.90 - 10/17/2019 [facility] 5.00 M/uL 8:08 AM INDUCTION HEAT TREATER [place] Hemoglobin 13.2 12.0 - 10/17/2019 [facility] 15.5 g/dL 8:08 AM INDUCTION HEAT TREATER [place] Hematocrit 38.7 35.0 - 10/17/2019 [facility] 44.0 % 8:08 AM INDUCTION HEAT TREATER [place] Platelets 147 (L) 150 - 450 10/17/2019 [facility] K/uL 8:08 AM INDUCTION HEAT TREATER [place] MCV 90.4 81.6 - 10/17/2019 [facility] 98.3 fL 8:08 AM INDUCTION HEAT TREATER [place] MCH 30.8 26.0 - 10/17/2019 [facility] 32.0 pg 8:08 AM INDUCTION HEAT TREATER [place] MCHC 34.1 32.0 - 10/17/2019 [facility] 36.0 g/dL 8:08 AM INDUCTION HEAT TREATER [place] RDW 12.7 11.9 - 10/17/2019 [facility] 15.5 % 8:08 AM INDUCTION HEAT TREATER [place] Lymphocytes % 37.4 18.0 - 10/17/2019 [facility] 45.0 % 8:08 AM INDUCTION HEAT TREATER [place] Mid-size Cells 13.5 (H) 3.3 - 10.1 10/17/2019 [facility] % 8:08 AM INDUCTION HEAT TREATER [place] Granulocytes/Josefa 49.1 45.8 - 10/17/2019 [facility] trophils 73.7 % 8:08 AM INDUCTION HEAT TREATER [place] Lymphocytes 1.3 0.9 - 2.9 10/17/2019 [facility] Absolute K/uL 8:08 AM INDUCTION HEAT TREATER [place] MIDS Absolute 0.5 0.2 - 0.8 10/17/2019 [facility] K/uL 8:08 AM INDUCTION HEAT TREATER [place] Granulocytes/Josefa 1.7 (L) 2.1 - 8.7 10/17/2019 [facility] trophils K/uL 8:08 AM INDUCTION HEAT TREATER [place] Absolute Specimen Anatomical Collection Method Collection Time Receive d Time (Source) Location / / Volume Laterality Blood 10/17/2019 8:02 AM 0 8:06 INDUCTION HEAT TREATER AM INDUCTION HEAT TREATER Antonia Aldrich APRN, CNP LAB BLOOD ORDERABLES Performing Organization Address [facility] Phon e Number [facility] [place] [address] [place] [address] (ABNORMAL) Basic metabolic panel (10/17/2019 8:02 AM INDUCTION HEAT TREATER) P athologist Signature Sodium 142 135 - 145 10/17/2019 [facility] mmol/L 8:17 AM INDUCTION HEAT TREATER [place] Potassium 3.6 3.5 - 5.1 10/17/2019 [facility] mmol/L 8:17 AM INDUCTION HEAT TREATER [place] Comment: . Chloride 101 98 - 107 mmol/L 10/17/2019 8:17 AM INDUCTION HEAT TREATER [facility] Comment: . CO2 31 (H) 22 - 29 mmol/L 10/17/2019 8:17 AM INDUCTION HEAT TREATER [facility] [place] Comment: . Creatinine 0.8 0.4 - 1.2 mg/dL 10/17/2019 8:17 AM INDUCTION HEAT TREATER [facility] [place] Comment: . BUN 18 5 - 25 mg/dL 10/17/2019 8:17 AM INDUCTION HEAT TREATER [facility] [place] Comment: . Glucose 111 (H) 70 - 100 mg/dL 10/17/2019 8:17 AM INDUCTION HEAT TREATER [facility] [place] Calcium, Total,S 9.4 8.4 - 10.2 mg/dL 10/17/2019 8:17 AM INDUCTION HEAT TREATER [facility] [place] [place] Comment: . Specimen Anatomical Collection Method Collection Time Receive d Time (Source) Location / / Volume Laterality Blood 10/17/2019 8:02 AM 0 8:06 INDUCTION HEAT TREATER AM INDUCTION HEAT TREATER Antonia Aldrich APRN, CNP LAB BLOOD ORDERABLES Performing Organization Address City/[facility]/ZIP [facility] Phon e Number [facility] [place] [address] [place] [address] (ABNORMAL) Liver panel (10/17/2019 8:02 AM INDUCTION HEAT TREATER) Analysis Performed At Patho logist Time Signature Total Protein 6.5 6.3 - 8.2 10/17/2019 [facility] g/dL 12:58 PM [facility] Albumin, Serum 3.9 3.5 - 5.0 10/17/2019 [facility] g/dL 12:58 PM [facility] Total Bilirubin <0.7 0.1 - 1.0 10/17/2019 [facility] mg/dL 12:58 PM [facility] Bilirubin, <0.1 0.0 - 0.3 10/17/2019 [facility] Direct mg/dL 12:58 PM [facility] AST 54 (H) 8 - 43 U/L 10/17/2019 [facility] 12:58 PM [facility] Alkaline 62 38 - 128 10/17/2019 [facility] Phosphatase U/L 12:58 PM [facility] ALT (SGPT) 95 (H) 0 - 34 U/L 10/17/2019 [facility] 12:58 PM [facility] Specimen Anatomical Collection Method Collection Time Receive d Time (Source) Location / / Volume Laterality Blood (Blood, 10/17/2019 8:02 AM 10/17/19 20 Venous) INDUCTION HEAT TREATER 12:15 PM INDUCTION HEAT TREATER Antonia Aldrich APRN, CNP LAB BLOOD ORDERABLES Performing Organization Address City/State/ZIP Code Phon e Number [facility] [address] [place], [place] [id number] Ear cerumen removal (10/13/2019 10:40 AM INDUCTION HEAT TREATER) Anne Marie Rosales MA - 10/13/2019 10:40 AM INDUCTION HEAT TREATER Anne Marie Arango MA ? 10/17/2019 ??7:08 [...] anemia documented in this encounter Care Teams Heat And Frost Insulator Helper Relationship Specialty Start Date End Date Antonia Aldrich APRN, FLAGSETTER PCP - General 04/20/18 05/21/20 100 [place] [address] documented as of this encounter
--- OUTSIDE RECORDS SUMMARY | 2022-05-23 11:26 | XMS_ITS | Encounter Summary ---
:1935 Author Organization [facility] Address [address] [place] [address] Care Team Providers Name Role Phone Antonia Aldrich APRN, COMMERCIAL BANKER Primary Care Provider [phone] Encounter Details Date Type Department Care Team Description 11/16/2019 Orders Only Prasanth Hernandez Antonia Aldrich Onychomycosis (Primary [address] M, IV[place] NAM Dx) [place], [place] [address] [facility] [address] [place] [address] Social History Tobacco Use Types Packs/Day Years [...] nail documented in this encounter Care Teams Director Video Relationship Specialty Start Date End Date Antonia Aldrich APRN, COMMERCIAL BANKER PCP - General 04/20/18 05/21/20 100 [facility] [place] [address] documented as of this encounter
--- OUTSIDE RECORDS SUMMARY | 2022-05-23 11:26 | XMS_ITS | Encounter Summary ---
:1935 Author Organization [facility] Address [address] [place] [address] Care Team Providers Name Role Phone Antonia Aldrich APRN, PRINTING SHOP SUPERVISOR Primary Care Provider [phone] Reason for Visit Reason Comments Medicare Annual Wellness Visit Subsequent Encounter Details Date Type Department Care Team Description 05/20/2019 Office Visit [facility] Medicare annual wellness [address] visit, subsequent (Primary [place] [address] Dx) [phone] Social History Tobacco Use Types Packs/Day Years [...] CDT documented in this encounter Progress Notes Rosa Wells LPN - 05/20/2019 10:40 AM CDT Annual Wellness Visit CARE TEAM / RESOURCES: Patient Care Team: Antonia Aldrich APRN, PRINTING SHOP SUPERVISOR as PCP - General Eye Care: Dr. Sanders [place] [facility]: Dr. Tay [place] Pharmacy: [facility] - [address] [address] [facility] - [address] [address] [facility] [facility] [address] Other: Visit Vitals BP (!) 142/92 (BP [...] Vitamins-Minerals (MULTIVITAMIN ADULT PO) ??? nystatin (MYCOSTATIN) 088383 UNIT/ML suspension if needed ??? omeprazole (PriLOSEC) [...] the patient's advance care planning wishes:: No Judaism or spiritual beliefs that impact treatment:: No [...] done: Patient stated it was completed at [place] 12/31/2006 Due: 2016 Breast Cancer Screening: Last [...] transfusion before 1991. ?? Those born between 1050-7553. Glaucoma: Medicare Part B (Medical Insurance) covers [...] Primary documented in this encounter Care Teams Cna Hha Relationship Specialty Start Date End Date Antonia Aldrich APRN, PRINTING SHOP SUPERVISOR PCP - General 04/20/18 05/21/[address] [place] [address] [place] [address] documented as of this encounter
--- OUTSIDE RECORDS SUMMARY | 2022-05-23 11:26 | XMS_ITS | Encounter Summary ---
:1935 Author Organization [facility] Address [address] [place] [address] Care Team Providers Name Role Phone Unavailable Primary Care Provider Unavailable Reason for Visit Reason Onset Date Comments Omeprazole return call 06/04/2020 Encounter Details Date Type Department Care Team Description 06/04/2020 Telephone Prasanth Hernandez Jelly Kendrick Omeprazole return call [address] MD [place], [place] [address] [facility] [address] [place] [phone] [place] [address] Social History Tobacco Use Types Packs/Day Years [...]
--- OUTSIDE RECORDS SUMMARY | 2022-05-23 11:26 | XMS_ITS | Encounter Summary ---
:1935 Author Organization [facility] Address [address] [place] [address] Care Team Providers Name Role Phone None, [...] Primary documented in this encounter Care Teams Parking Assistant Relationship Specialty Start Date End Date None, Pcp PCP - General Grain Origination Specialist 06/12/20 01/30/21 [address] [place] [address] documented as of this encounter
--- OUTSIDE RECORDS SUMMARY | 2022-05-23 11:26 | XMS_ITS | Encounter Summary ---
:1935 Author Organization [facility] Address [address] [place] [address] Care Team Providers Name Role Phone Antonia Aldrich APRN, CNP Primary Care Provider [phone] Reason for Visit Reason Comments Immunizations FLU [...] Primary documented in this encounter Care Teams Life Skills Coordinator Volunteer Relationship Specialty Start Date End Date Antonia Aldrich APRN, PROPOSAL MANAGER PCP - General 04/20/18 05/21/20 [address] [place] [address] documented as of this encounter
--- OUTSIDE RECORDS SUMMARY | 2022-05-23 11:26 | XMS_ITS | Encounter Summary ---
:1935 Author Organization [facility] Address [address] [place] [address] Care Team Providers Name Role Phone None, Pcp Primary Care Provider Unavailable Reason for Referral Consultation (Routine) - Closed Specialty Diagnoses / Procedures Referred By Contact Refer red To Contact Neurology Diagnoses Neuropathy of right lower extremity Suze Tolentino APRN, CNP [facility] - Referrals [address] [place] [address] [place] [address] Fax: Referral ID Status Reason Start Date Expiration Date Visits Requ ested Visits Authorized [id number] Closed 11/02/2020 11/02/2021 1 1 Scheduling Instructions Was seen at [facility] in the past. STRIAL ENGINEERING MANAGER Reason for Visit Reason Comments Check ears Encounter Details Date Type Department Care Team Description 11/01/2020 Office Visit Prasanth Hernandez Suze Tolentino, Right ear pain (Primary Dx); [address] [place] Benign paroxysmal positional vertigo, un specified laterality; [place] [address] Fungal infection of toenail; [phone] [place], [place] Neuropathy of right lower extremity [id number] Social History Tobacco Use Types Packs/Day Years [...] Comments Blood Pressure 130/90 11/01/2020 1:03 PM INDUSTRIAL ENGINEERING MANAGER Pulse 84 11/01/2020 1:03 PM INDUSTRIAL ENGINEERING MANAGER Temperature 36.3 ??C (97.3 ??F) 11/01/2020 1:03 PM INDUSTRIAL ENGINEERING MANAGER Respiratory Rate 12 11/01/2020 1:03 PM INDUSTRIAL ENGINEERING MANAGER Oxygen Saturation 97% 11/01/2020 1:03 PM INDUSTRIAL ENGINEERING MANAGER Inhaled Oxygen Concentration - - Weight 71.7 kg (158 lb) 11/01/2020 1:03 PM INDUSTRIAL ENGINEERING MANAGER Height 157.6 cm (5' 2.05) 11/01/2020 1:03 PM INDUSTRIAL ENGINEERING MANAGER Body Mass Index 28.85 11/01/2020 1:03 PM INDUSTRIAL ENGINEERING MANAGER documented in this encounter Patient Instructions Patient InstructionsTmaritza Tolentino APRN, LINING BASTER - 11/01/2020 1:00 PM CST Took dramamine [...] us know, we can have you see [facility] again. STRIAL ENGINEERING MANAGER documented in this encounter Progress Notes Suze Tolentino APRN, CNP - 11/01/2020 1:00 PM CST Subjective Patient ID: Kathryn Leon is a 85 y.o. female. Chief Complaint Patient presents with ??? Check ears HPI Patient presents to the [facility] to get her ears checked and complete [...] therapy. She also took some Dram amine omhr-qug-wkyfrji which overall have been helping. Patient is a history of recurrent chronic sinusitis but have been using Flonase nasal spray and Elzbieta-D for more than 5 years daily. She states this helps her recurrent sinusitis. In the past she has history of fungal toenail infection and inquired about an oral medication and also liver panel. Patient have not tried any topical aivy-jta-wvbwduq products. 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 She was seen at [facility] and had surgical repair a few [...] patient know I put in referral to [facility]. Ask that nursing staff assist with [...] us know, we can have you see [facility] again. STRIAL ENGINEERING MANAGER documented in this encounter Miscellaneous Notes Assessment & Plan Note - Suze Tolentino APRN, CNP - 11/02/2020 11:30 AM INDUSTRIAL ENGINEERING MANAGER Associated Problem(s): Benign paroxysmal positional vertigo Continue eply maneuvers at home and otc med. Doing better per patient. STRIAL ENGINEERING MANAGER documented in this encounter Plan of Treatment Scheduled Referrals Name Type Priority Associated Order Schedule Diagnoses Ambulatory External Outpatient Referral Routine Neuropathy of right Ordered: Referral lower extremity 11/02/2020 documented as of this encounter Results (ABNORMAL) Comprehensive metabolic panel (11/01/2020 2:06 PM INDUSTRIAL ENGINEERING MANAGER) [facility] Time Signature Total Protein 7.0 6.3 - 8.2 11/02/2020 [facility] g/dL 1:[address] [facility] Albumin, Serum 4.1 3.5 - 5.0 11/02/2020 [facility] g/dL 1:[address] [facility] Total Bilirubin <0.7 0.1 - 1.0 11/02/2020 [facility] mg/dL 1:[address] [facility] AST 87 (H) 8 - 43 U/L 11/02/2020 [facility] 1:[address] [facility] Alkaline 72 38 - 128 11/02/2020 [facility] Phosphatase U/L 1:[address] [facility] ALT (SGPT) 127 (H) 0 - 34 U/L 11/02/2020 [facility] 1:[address] [facility] Sodium 140 135 - 145 11/02/2020 [facility] mEq/L 1:[address] [facility] Potassium 3.8 3.5 - 5.1 11/02/2020 [facility] mEq/L 1:[address] [facility] Chloride 100 98 - 107 11/02/2020 [facility] mEq/L 1:[address] [facility] CO2 32 (H) 22 - 29 11/02/2020 [facility] mmol/L 1:[address] [facility] BUN 18 5 - 25 11/02/2020 [facility] mg/dL 1:[address] [facility] Creatinine 0.9 0.4 - 1.2 11/02/2020 [facility] mg/dL 1:[address] [facility] Glucose 83 70 - 100 11/02/2020 [facility] mg/dL 1:[address] [facility] Calcium, Total,S 9.6 8.4 - 10.2 11/02/2020 [facility] mg/dL 1:[address] [facility] Fasting? No 11/01/2020 [facility] 2:[address] [facility] Specimen Anatomical Collection Method Collection Time Receive d Time (Source) Location / / Volume Laterality Blood 11/01/2020 2:06 PM INDUSTRIAL ENGINEERING MANAGER 12:50 PM INDUSTRIAL ENGINEERING MANAGER Suze Tolentino APRN, CNP LAB BLOOD ORDERABLES Performing Organization Address City/[facility]/ZIP Code [facility] [address] [place] [phone] C-reactive protein (11/01/2020 2:06 PM INDUSTRIAL ENGINEERING MANAGER) athologist Signature CRP 2.8 0.0 - 4.9 11/02/2020 [facility] mg/L 1:53 PM [facility] Specimen Anatomical Collection Method Collection Time Receive d Time (Source) Location / / Volume Laterality Blood (Blood, 11/01/2020 2:06 PM 11/02/19 21 Venous) INDUSTRIAL ENGINEERING MANAGER 12:50 PM INDUSTRIAL ENGINEERING MANAGER Suze Tolentino APRN, CNP LAB BLOOD ORDERABLES Performing Organization Address City/[facility] Code Phon e Number [facility] [address] [place] [phone] CBC Branch Off w/Diff (11/01/2020 2:06 PM INDUSTRIAL ENGINEERING MANAGER) athologist Signature WBC 4.4 3.5 - 10.5 11/01/2020 [facility] K/uL 2:15 PM INDUSTRIAL ENGINEERING MANAGER [place] RBC 4.43 3.90 - 11/01/2020 [facility] 5.00 M/uL 2:15 PM INDUSTRIAL ENGINEERING MANAGER [place] Hemoglobin 13.3 12.0 - 11/01/2020 [facility] 15.5 g/dL 2:15 PM INDUSTRIAL ENGINEERING MANAGER [place] Hematocrit 40.0 35.0 - 11/01/2020 [facility] [place] 44.0 % 2:15 PM INDUSTRIAL ENGINEERING MANAGER [place] Platelets 158 150 - 450 11/01/2020 [facility] K/uL 2:15 PM INDUSTRIAL ENGINEERING MANAGER [place] MCV 90.3 81.6 - 11/01/2020 [facility] 98.3 fL 2:15 PM INDUSTRIAL ENGINEERING MANAGER [place] MCH 30.0 26.0 - 11/01/2020 [facility] 32.0 pg 2:15 PM INDUSTRIAL ENGINEERING MANAGER [place] MCHC 33.3 32.0 - 11/01/2020 [facility] 36.0 g/dL 2:15 PM INDUSTRIAL ENGINEERING MANAGER [place] RDW 12.8 11.9 - 11/01/2020 [facility] 15.5 % 2:15 PM INDUSTRIAL ENGINEERING MANAGER [place] Lymphocytes % 31.8 % 11/01/2020 [facility] 2:15 PM INDUSTRIAL ENGINEERING MANAGER [place] Mid-size Cells 12.6 % 11/01/2020 [facility] 2:15 PM INDUSTRIAL ENGINEERING MANAGER [place] Granulocytes/Josefa 55.6 % 11/01/2020 [facility] trophils 2:15 PM INDUSTRIAL ENGINEERING MANAGER [place] Lymphocytes 1.4 0.9 - 2.9 11/01/2020 [facility] Absolute K/uL 2:15 PM INDUSTRIAL ENGINEERING MANAGER [place] MIDS Absolute 0.6 0.4 - 1.5 11/01/2020 [facility] K/uL 2:15 PM INDUSTRIAL ENGINEERING MANAGER [place] Granulocytes/Josefa 2.4 1.7 - 7.0 11/01/2020 [facility] trophils K/uL 2:15 PM INDUSTRIAL ENGINEERING MANAGER [place] Absolute Specimen Anatomical Collection Method Collection Time Receive d Time (Source) Location / / Volume Laterality Blood 11/01/2020 2:06 PM 2:09 INDUSTRIAL ENGINEERING MANAGER PM INDUSTRIAL ENGINEERING MANAGER Suze Tolentino BIOMASS TECHNICIAN, LINING BASTER LAB BLOOD ORDERABLES Performing Organization Address City/State/ZIP Code Phon e Number [facility] [place] [address] [place] [address] Magnesium (11/01/2020 2:06 PM INDUSTRIAL ENGINEERING MANAGER) P athologist Signature Magnesium 1.9 1.6 - 2.3 11/02/2020 [facility] mg/dL 1:49 PM INDUSTRIAL ENGINEERING MANAGER CENTER LABORATORY Specimen Anatomical Collection Method Collection Time Receive d Time (Source) Location / / Volume Laterality Blood 11/01/2020 2:06 PM INDUSTRIAL ENGINEERING MANAGER 12:50 PM INDUSTRIAL ENGINEERING MANAGER Suze Tolentino APRN, LINING BASTER LAB BLOOD ORDERABLES Performing Organization Address City/State/ZIP Code Phon e Number [facility] [address] [place] [address] documented in this encounter Visit Diagnoses Diagnosis Right ear pain - Primary Unspecified otalgia Benign paroxysmal positional vertigo, un specified laterality Fungal infection of toenail Neuropathy of right lower extremity documented in this encounter Care Teams Acetylene Plant Operator Relationship Specialty Start Date End Date None, Pcp PCP - General Interior Plant Caretaker 06/12/20 01/30/21 [address] [place] [address] documented as of this encounter
--- OUTSIDE RECORDS SUMMARY | 2022-05-23 11:26 | XMS_ITS | Encounter Summary ---
:1935 Author Organization [facility] Address [address] [place] [address] Care Team Providers Name Role Phone Antonia Aldrich APRN, CNP Primary Care Provider [phone] Encounter Details Date Type Department Care Team [...] on filedocumented in this encounter Care Teams Application Trainer Relationship Specialty Start Date End Date Antonia Aldrich APRN, CORPORATE CLAIMS EXAMINER PCP - General 04/20/18 05/21/20 100 [facility] [place] [address] documented as of this encounter
--- OUTSIDE RECORDS SUMMARY | 2022-05-23 11:26 | XMS_ITS | Encounter Summary ---
:1935 Author Organization [facility] Address [address] [place] [address] Care Team Providers Name Role Phone None, Pcp Primary Care Provider Unavailable Reason for Visit Reason Onset Date Comments fax 11/02/2020 Encounter Details Date Type Department Care Team Description 11/02/2020 Telephone Prasanth Hernandez None, Pcp fax [address] [facility] [address] [address] [place], [place] [address] [place] [address] Social History Tobacco Use Types [...] - 11/05/2020 3:16 PM CST Referral faxed. OR DEPARTMENT MANAGER Telephone Encounter - Amber Jon RN - 11/05/2020 2:59 PM CST Please refax order. OR DEPARTMENT MANAGER Telephone Encounter - Rosa Wells LPN - 11/05/2020 9:27 AM CST Noted, when radiology [facility] arrives, please refax due to error in first referral. HOLD message till nurse receives the correct referral. OR DEPARTMENT MANAGER Telephone Encounter - Faviola Ivy - 11/02/2020 4:40 PM CST One referral faxed to [facility] radiology and one faxed to [facility] general referral as requested. OR DEPARTMENT MANAGER Telephone Encounter - Amber Jon RN - 11/02/2020 4:21 PM CST Please fax referral to [facility]. OR DEPARTMENT MANAGER documented in this encounter Plan of Treatment Not on filedocumented as of this encounter Visit Diagnoses Not on filedocumented in this encounter Care Teams Optical Advisor Relationship Specialty Start Date End Date None, Pcp PCP - General Multimedia Coordinator 06/12/20 01/30/[address] [place] [phone] documented as of this encounter
--- OUTSIDE RECORDS SUMMARY | 2022-05-23 11:26 | XMS_ITS | Encounter Summary ---
:1935 Author Organization [facility] Address [address] [place] [address] Care Team Providers Name Role Phone None, Pcp Primary Care Provider Unavailable Encounter Details Date Type Department Care Team Description 12/04/2020 Lab SE Lab Polyneuropathy [address] [place], [place] [address] Social History Tobacco Use Types Packs/Day Years [...] Hemoglobin A1C 5.4 4.0 - 5.6 12/04/2020 [facility] L % A1C 5:26 PM [...] Organization Address City/State/ZIP Code Phon e Number [facility] [address] [place] [address] Vitamin B12 (12/04/2020 3:59 PM CDT) athologist Signature Vitamin B-12 [phone] 035 12/04/2020 [facility] pg/mL 6:10 PM CDT CENTER LABORATORY Comment: [...] Organization Address City/State/ZIP Code Phon e Number [facility] [address] [place] [address] (ABNORMAL) Monoclonal protein study, serum (12/04/2020 3:59 PM CDT) [facility] Method Time Signature Protein, Total 6.0 (L) 6.3 - 7.9 12/06/2020 [facility] g/dL 9:37 AM CDT LABORATORIES Albumin, Serum 3.1 (L) 3.4 - 4.7 12/06/2020 [facility] g/dL 9:37 AM CDT LABORATORIES Kehvl-2-Wuahnox 0.3 0.1 - 0.3 12/06/2020 [facility] n g/dL 9:37 AM CDT LABORATORIES Wzpqz-4-Etjaycn 0.9 0.6 - 1.0 12/06/2020 [facility] n g/dL 9:37 AM [facility]T LABORATORIES Beta Globulin 0.9 0.7 - 1.2 12/06/2020 [facility] g/dL 9:37 AM [facility] LAB[facility]IES Gamma Globulin 0.9 0.6 - 1.6 12/06/2020 [facility] g/dL 9:37 AM [facility] LAB[facility]IES A/G Ratio 1.08 12/06/2020 [facility] 9:37 AM [facility]T LABORATORIES Impression - 12/06/2020 [facility] 9:37 AM [facility]T LAB[facility]ATORIES Comment: No apparent monoclonal protein on serum electrophoresis. See Isotype. M-Protein Isotype SEE BELOW 12/06/2020 9:37 AM CDT [facility] MALDI-TOF MS [facility]ATORIES Comment: No monoclonal protein detected. ADDITIONAL INFORMATIO N The submitted sample was assayed by five separate immunopurifications for IgG, IgA, IgM, k appa and lambda. The result reflects the findings of eith er no monoclonal protein detected or those monoclonal imm unoglobulins that were detected. This test was developed and its performa nce characteristics determined by [facility] in a manner co nsistent with CLIA requirements. This test has not been garth ared or approved by the U.S. Food and Drug Administration. Flag, M-Protein Negative Negative 12/06/2020 9:37 AM [facility] Isotype CDT LABORATORIES Comment: Test Performed by: [facility] [address] [place], [place] [address] Irrigator Valve Pipe: Mark Pittman M.D. Ph. D.; CLIA# [id number] Therapeutic Antibody Not Provided 12/06/2020 9:37 AM [facility] Administered? 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
--- OUTSIDE RECORDS SUMMARY | 2022-05-23 11:26 | XMS_ITS | Encounter Summary ---
:1935 Author Organization [facility] Address [address] [place] [address] Care Team Providers Name Role Phone Antonia Aldrich APRN, TERMITE CONTROL SERVICE REPRESENTATIVE Primary Care Provider [phone] Encounter Details Date Type Department Care Team [...] PM Medication Resul ts for this PANEL TWISTING PRESS OPERATOR monitoring encounter procedu re are in the results section. documented in this encounter Results (ABNORMAL) Liver panel (11/15/2019 1:09 PM TWISTING PRESS OPERATOR) Analysis Performed At Patho logist Time Signature Total Protein 7.4 6.3 - 8.2 11/16/2019 [facility] g/dL 1:40 PM [facility] Albumin, Serum 4.3 3.5 - 5.0 11/16/2019 [facility] g/dL 1:40 PM [facility] Total Bilirubin <0.7 0.1 - 1.0 11/16/2019 [facility] mg/dL 1:40 PM [facility] Bilirubin, <0.1 0.0 - 0.3 11/16/2019 [facility] Direct mg/dL 1:40 PM [facility] AST 54 (H) 8 - 43 U/L 11/16/2019 [facility] 1:40 PM [facility] Alkaline 70 38 - 128 11/16/2019 [facility] Phosphatase U/L 1:40 PM [facility] ALT (SGPT) 90 (H) 0 - 34 U/L 11/16/2019 [facility] 1:40 PM [facility] Specimen Anatomical Collection Method Collection Time Receive d Time (Source) Location / / Volume Laterality Blood (Blood, 11/15/2019 1:09 PM 11/16/19 1:09 Venous) TWISTING PRESS OPERATOR PM TWISTING PRESS OPERATOR Antonia Aldrich APRN, CNP LAB BLOOD ORDERABLES Performing Organization Address City/State/ZIP Code Phon e Number [facility] [address] [place] [address] documented in this encounter Visit Diagnoses Diagnosis Medication monitoring encounter Encounter for therapeutic drug monitorin g documented in this encounter Care Teams Slic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/Tender Relationship Specialty Start Date End Date Antonia Aldrich APRN, TERMITE CONTROL SERVICE REPRESENTATIVE PCP - General 04/20/18 05/21/20 [address] [place] [address] documented as of this encounter
--- OUTSIDE RECORDS SUMMARY | 2022-05-23 11:26 | XMS_ITS | Encounter Summary ---
:1935 Author Organization [facility] Address [address] [place] [address] Care Team Providers Name Role Phone Antonia Aldrich TORCH BRAZER, COUNTER STITCHER Primary Care Provider [phone] Reason for Visit Reason Comments Med Refill Encounter Details Date Type Department Care Team Description 09/26/2019 Refill Nikhil Hernandez Antonia Aldrich, Allergic rhinitis, [address] TORCH BRAZER, COUNTER STITCHER unspecified [place] [address] seasonality, [place], [place] [address] unspecified trigger Social History [...] MCG/ACT nasal spray [Pharmacy Med Name: FLUTICASONE AL NS SP 16GM RX 50MCG] 48 g 4 Sig: USE 2 SPRAYS NASALLY DAILY DENT MANAGER documented in this encounter Plan of Treatment Not on filedocumented as of this encounter Visit Diagnoses Diagnosis Allergic rhinitis, unspecified seasonali ty, unspecified trigger documented in this encounter Care Teams Buckle Strap Puncher Relationship Specialty Start Date End Date Antonia Aldrich APRN, COUNTER STITCHER PCP - General 04/20/18 05/21/20 [address] [facility] [place] [address] documented as of this encounter
--- OUTSIDE RECORDS SUMMARY | 2022-05-23 11:26 | XMS_ITS | Encounter Summary ---
:1935 Author Organization [facility] Address [address] [place] [address] Care Team Providers Name Role Phone Antonia Aldrich APRN, CNP Primary Care Provider [phone] Reason for Referral Consultation (Routine) - Closed Specialty Diagnoses / Procedures Referred By Contact Refer red To Contact Diagnoses Age-related osteoporosis without current pathological fracture Antonia Aldrich [place] - Referrals IV[place] NAM [address] [place] [address] [place] [address] Fax: Referral ID Status Reason Start Date Expiration Date Visits Requ ested Visits Authorized [id number] Closed 06/29/2019 06/29/2020 1 1 Encounter Details Date Type Department Care Team Description 06/29/2019 Telephone [place] Antonia Aldrich, [address] [place], [place] [address] 100 [facility] [phone] [place], [place] [address] Social History Tobacco Use [...] Name Type Priority Associated Diagnoses Order S [facility] Ambulatory External Outpatient Referral Routine Age-related O rdered: Referral osteoporosis without 019 current pathological fracture documented as of this encounter Visit Diagnoses Diagnosis Age-related osteoporosis without current pathological fracture - Primary documented in this encounter Care Teams Technology Lab Teacher Relationship Specialty Start Date End Date Antonia Aldrich APRN, AUTOMOTIVE PARTS MANAGER PCP - General 04/20/18 05/21/20 100 [place] [address] documented as of this encounter
--- OUTSIDE RECORDS SUMMARY | 2022-05-23 11:26 | XMS_ITS | Encounter Summary ---
:1935 Author Organization [facility] Address [address] [place] [address] Care Team Providers Name Role Phone Antonia Aldrich ACCREDITATION COORDINATOR, RECEIVING ASSOCIATE Primary Care Provider [phone] Reason for Visit Reason Onset Date Comments Med Refill 10/31/2019 Encounter Details Date Type Department Care Team Description 10/31/2019 Refill [place] Antonia Aldrich, Allergic rhinitis, [address] ACCREDITATION COORDINATOR, IVANA unspecified [place], [place] [address] seasonality, [place], [place] [address] unspecified trigger Social History [...] faxed this morning by the front office medical assistant. R HELPER Telephone Encounter - Antonia Aldrich APRN, CNP - 10/31/2019 8:05 AM FILER HELPER This has been printed please fax to [facility] pharmacy in [place]. Thanks Harman R HELPER Telephone Encounter - Tabitha Lombardo LPN - 10/31/2019 7:06 AM FILER HELPER Last visit in Provider Department: 10/13/2019 Upcoming appointment with Provider: none Last Rx: 04/05/19 #180 with 1 refill Requested Prescriptions Pending Prescriptions Disp Refills ? ? fexofenadine-pseudoephedrine ([facility] CON[facility]ST[facility]) 60-120 MG per 12 hr tablet 180tablet 1 Sig: Take 1 tablet by mouth 2 (two) times a day R HELPER documented in this encounter Plan of Treatment Not on filedocumented as of this encounter Visit Diagnoses Diagnosis Allergic rhinitis, unspecified seasonali ty, unspecified trigger documented in this encounter Care Teams Gas Welder Relationship Specialty Start Date End Date Antonia Aldrihc APRN, IVANA PCP - General 04/20/18 05/21/[address] [place] [address] documented as of this encounter
--- OUTSIDE RECORDS SUMMARY | 2022-05-23 11:26 | XMS_ITS | Encounter Summary ---
:1935 Author Organization [facility] Address [address] [place] [address] Care Team Providers Name Role Phone Antonia Aldrich APRN, INDUSTRIAL SEWER Primary Care Provider [phone] Encounter Details Date Type Department Care Team [...] on filedocumented in this encounter Care Teams Cafeteria Operator Relationship Specialty Start Date End Date Antonia Aldrich CYRIL, INDUSTRIAL SEWER PCP - General 04/20/18 05/21/20 100 [facility] [place] [address] documented as of this encounter
--- OUTSIDE RECORDS SUMMARY | 2022-05-23 11:27 | XMS_ITS | Encounter Summary ---
:1935 Author Organization [facility] Address [address] [place] [address] Care Team Providers Name Role Phone Antonia Aldrich SKIN DIVING TEACHER, SCALP TREATMENT OPERATOR Primary Care Provider [phone] Reason for Visit Reason Comments Med Refill Encounter Details Date Type Department Care Team Description 11/05/2018 Refill Nikhil Hernandez Antonia Aldrich, Gastroesophageal reflux [address] [place] disease, esophagitis Nikhil Hernandez [place] [address] presence not specified [address] [place] [address] (Primary Dx) [phone] Social History Tobacco Use Types Packs/Day Years [...] at this time. Please advise, thank you. ENT COORDINATOR documented in this encounter Plan of Treatment Not on filedocumented as of this encounter Visit Diagnoses Diagnosis Gastroesophageal reflux disease, esophag itis presence not specified - Primary documented in this encounter Care Teams Cotton Broker Relationship Specialty Start Date End Date Antonia Aldrich, SKIN DIVING TEACHER, SCALP TREATMENT OPERATOR PCP - General 04/20/18 05/21/20 100 [facility] [place] [address] documented as of this encounter
--- OUTSIDE RECORDS SUMMARY | 2022-05-23 11:27 | XMS_ITS | Encounter Summary ---
:1935 Author Organization [facility] Address [address] [place] [address] Care Team Providers Name Role Phone Antonia Aldrich APRN, DECKHAND MAINTENANCE Primary Care Provider Encounter Details Date Type [...] - 8.2 12/10/2018 [facility] g/dL 6:37 PM [facility] Albumin, Serum 3.8 3.5 - 5.0 12/10/2018 [facility] g/dL 6:37 PM [facility] Total Bilirubin <0.7 0.1 - 1.0 12/10/2018 [facility] mg/dL 6:37 PM [facility] Bilirubin, <0.1 0.0 - 0.3 12/10/2018 [facility] Direct mg/dL 6:37 PM [facility] AST 53 (H) 8 - 43 U/L 12/10/2018 [facility] 6:37 PM [facility] Alkaline 57 38 - 128 12/10/2018 [facility] Phosphatase U/L 6:37 PM [facility] ALT (SGPT) 70 (H) 0 - 34 U/L 12/10/2018 [facility] 6:37 PM [facility] Specimen Anatomical Collection Method Collection Time Receive d Time (Source) Location / / Volume Laterality Blood (Blood, 12/10/2018 10:16 12/10/2018 6:12 Venous) AM CDT PM CDT Antonia Aldrich APRN, CNP LAB BLOOD ORDERABLES Performing Organization Address City/State/ZIP Code Phon e Number [facility] [address] [place] [address] documented in this encounter Visit Diagnoses Diagnosis Medication monitoring encounter Encounter for therapeutic drug monitorin g documented in this encounter Care Teams Social Media Community Manager Relationship Specialty Start Date End Date Antonia Aldrich APRN, DECKHAND MAINTENANCE PCP - General 04/20/18 05/21/[address] [place] [address] [place] [address] documented as of this encounter
--- OUTSIDE RECORDS SUMMARY | 2022-05-23 11:27 | XMS_ITS | Encounter Summary ---
:1935 Author Organization [facility] Address [address] [place] [address] Care Team Providers Name Role Phone Antonia Aldrich APRN, IMAGING ANALYST Primary Care Provider [phone] Reason for Visit Reason Onset Date Comments med refill needed 09/30/2018 Encounter Details Date Type Department Care Team Description 09/30/2018 Telephone Prasanth Hernandez Antonia Aldrich, med refill needed [address] [place], [place] [address] [facility] [address] [phone] [place], [place] [address] Social History Tobacco Use [...] LPN - 09/30/2018 2:58 PM CST Faxed TYPE MECHANIC Telephone Encounter - Antnoia Aldrich APRN, IVANA - 09/30/2018 2:21 PM LINOTYPE MECHANIC Ok this has been signed. Harman Farris TYPE MECHANIC Telephone Encounter - Rosa Wells LPN - 09/30/2018 1:39 PM CST The patient would like Rochelel D sent to [facility] (the whole prescription). They are having issues with [facility]. TYPE MECHANIC Telephone Encounter - Rosa Wells LPN - 09/30/2018 10:35 AM CST Called and left a message. The we received a request for fill from [facility] we have NOT received one from [facility]. Would the patient like it all filled at [place] in [place] or would she like apartial sent there till [facility] mails hers to her home? TYPE MECHANIC Telephone Encounter - Faviola Ivy - 09/30/2018 10:25 AM CST Pt called stating she put in a refill request for her Rochelle D at the [facility] pharmacy and it has not been received yet. Pt is needing this today if possible. TYPE MECHANIC documented in this encounter Plan of Treatment Not on filedocumented as of this encounter Visit Diagnoses Diagnosis Allergic rhinitis, unspecified seasonali ty, unspecified trigger documented in this encounter Care Teams Director Of Special Education Relationship Specialty Start Date End Date Antonia Aldrich APRN, IMAGING ANALYST PCP - General 04/20/18 05/21/20 [address] [facility] [address] documented as of this encounter
--- OUTSIDE RECORDS SUMMARY | 2022-05-23 11:27 | XMS_ITS | Encounter Summary ---
:1935 Author Organization [facility] Address [address] [place] [address] Care Team Providers Name Role Phone Antonia Aldrich APRN, MEDICAL CASH POSTER Primary Care Provider Encounter Details Date Type [...] AM Medication Resu lts for this PANEL DITCH INSPECTOR monitoring encounter procedu re are in the results section. documented in this encounter Results (ABNORMAL) Liver panel (11/05/2018 11:18 AM DITCH INSPECTOR) Analysis Performed At Patho logist Time Signature Total Protein 6.7 6.3 - 8.2 11/05/2018 [facility] g/dL 6:41 PM [facility] Albumin, Serum 4.1 3.5 - 5.0 11/05/2018 [facility] g/dL 6:41 PM [facility] Total Bilirubin <0.7 0.1 - 1.0 11/05/2018 [facility] mg/dL 6:41 PM [facility] Bilirubin, <0.1 0.0 - 0.3 11/05/2018 [facility] Direct mg/dL 6:41 PM [facility] AST 50 (H) 8 - 43 U/L 11/05/2018 [facility] 6:41 PM [facility] Alkaline 57 38 - 128 11/05/2018 [facility] Phosphatase U/L 6:41 PM [facility] ALT (SGPT) 82 (H) 0 - 34 U/L 11/05/2018 [facility] 6:41 PM [facility] Comment: NOTE: Normal range change effective 08/15 Specimen Anatomical Collection Method Collection Time Receive d Time (Source) Location / / Volume Laterality Blood (Blood, 11/05/2018 11:18 11/05/2018 6:41 Venous) AM DITCH INSPECTOR PM DITCH INSPECTOR Antonia Aldrich APRN MEDICAL CASH POSTER LAB BLOOD ORDERABLES Performing Organization Address City/State/ZIP Code Phon e Number [facility] [address] [place] [address] documented in this encounter Visit Diagnoses Diagnosis Medication monitoring encounter Encounter for therapeutic drug monitorin g documented in this encounter Care Teams Integrity Analyst Relationship Specialty Start Date End Date Antonia Aldrich APRN, MEDICAL CASH POSTER PCP - General 04/20/18 05/21/20 100 [facility] [place] [address] documented as of this encounter
--- OUTSIDE RECORDS SUMMARY | 2022-05-23 11:27 | XMS_ITS | Encounter Summary ---
:1935 Author Organization [facility] Address [address] [place] [address] Care Team Providers Name Role Phone Antonia Aldrich ADVERTISING SOLICITOR, FLOORING MECHANIC Primary Care Provider [phone] Reason for Visit Reason Comments Med Refill Encounter Details Date Type Department Care Team Description 03/19/2019 Refill [place] Antonia Aldrich, Neuropathy (Primary Dx) [address] [place], [place] [address] [address] [facility] [address] [phone] [place], [place] [address] Social History Tobacco Use [...] site documented in this encounter Care Teams Locomotive Operator Relationship Specialty Start Date End Date Antonia Aldrich, ADVERTISING SOLICITOR, FLOORING MECHANIC PCP - General 04/20/18 05/21/[address] [place] [address] [place] [address] documented as of this encounter
--- OUTSIDE RECORDS SUMMARY | 2022-05-23 11:27 | XMS_ITS | Encounter Summary ---
:1935 Author Organization [facility] Address [address] [place] [address] Care Team Providers Name Role Phone Antonia Aldrich CORPORATE QUALITY ASSURANCE MANAGER, EDUCATION ASSISTANT Primary Care Provider [phone] Reason for Visit Reason Onset Date Comments prescription 11/10/2018 Encounter Details Date Type Department Care Team Description 11/10/2018 Telephone Prasanth Hernandez Antonia Aldrich, prescription [address] CORPORATE QUALITY ASSURANCE MANAGER, [place] [address] [address] [facility] [address] [phone] [place], [place] [address] Social History Tobacco Use [...] was reprocessed and to call if necessary. ER OPERATOR Telephone Encounter - Antonia Aldrich APRN, IVANA - 11/10/2018 11:54 AM TESTER OPERATOR Please let the patient know this was resent today, and she should let us know if they do not receiveit. Thanks, Harman ER OPERATOR Telephone Encounter - Lyric Cox RN - 11/10/2018 11:25 AM CST Rx was sent but not received by pharmacy for Lamisil. Please resend prescription to [facility] pharmacy. Thank you ER OPERATOR Telephone Encounter - Faviola Ivy - 11/10/2018 10:59 AM CST Pt called stating harman Aldrich was supposed to have sent a prescription to [facility] pharmacy when she was in on Thursday, and they still do not have it. Please check Rx status and call Pt as necessary. ER OPERATOR documented in this encounter Plan of Treatment Not on filedocumented as of this encounter Visit Diagnoses Diagnosis Onychomycosis Dermatophytosis of nail documented in this encounter Care Teams Provider Network Manager Relationship Specialty Start Date End Date Antonia Aldrich APRN, EDUCATION ASSISTANT PCP - General 04/20/18 05/21/[address] [place] [address] documented as of this encounter
--- OUTSIDE RECORDS SUMMARY | 2022-05-23 11:27 | XMS_ITS | Encounter Summary ---
:1935 Author Organization [facility] Address [address] [place] [address] Care Team Providers Name Role Phone Antonia Aldrich SETTLEMENT PROCESSOR, GRADUATE RECRUITER Primary Care Provider [phone] Reason for Visit Reason Comments Med Refill Encounter Details Date Type Department Care Team Description 09/17/2018 Refill Prasanth Hernandez Antonia Aldrich, Allergic rhinitis, [address] SETTLEMENT PROCESSOR, GRADUATE RECRUITER unspecified [place] [address] seasonality, [place], [place] [address] unspecified trigger (Primary Dx) [...] (annual wellness visit) No upcoming appointment scheduled ER RUNNER documented in this encounter Plan of Treatment Not on filedocumented as of this encounter Visit Diagnoses Diagnosis Allergic rhinitis, unspecified seasonali ty, unspecified trigger - Primary documented in this encounter Care Teams Incident Response Manager Relationship Specialty Start Date End Date Antonia Aldrich, SETTLEMENT PROCESSOR, GRADUATE RECRUITER PCP - General 04/20/18 05/21/[address] [place] [address] [place] [address] documented as of this encounter
--- OUTSIDE RECORDS SUMMARY | 2022-05-23 11:27 | XMS_ITS | Encounter Summary ---
:1935 Author Organization [facility] Address [address] [place] [address] Care Team Providers Name Role Phone Antonia Aldrich MANUFACTURING SCHEDULER, HEALTH SAFETY ENGINEER Primary Care Provider [phone] Reason for Visit Reason Onset Date Comments fax 04/08/2019 Encounter Details Date Type Department Care Team Description 04/08/2019 Telephone Prasanth Hernandez Antonia Aldrich, fax [address] MANUFACTURING SCHEDULER, IV[place] [address] [address] [facility] [address] [phone] [place], [place] [address] Social History Tobacco Use [...] encounter Miscellaneous Notes Telephone Encounter - Amber Jno RN - 04/08/2019 11:32 AM CDT Noted. Telephone Encounter - Faviola Ivy - 04/08/2019 11:32 AM CDT Both referrals and face sheet faxed to [facility] radiology as requested. Telephone Encounter - Amber Jon RN - 04/08/2019 11:12 AM CDT Please fax order for Mammogram and Dexa scan to [facility] Radiology documented in this encounter Plan of Treatment Not on filedocumented as of this encounter Visit Diagnoses Not on filedocumented in this encounter Care Teams Baseball Player Relationship Specialty Start Date End Date Antonia Aldrich APRN, HEALTH SAFETY ENGINEER PCP - General 04/20/18 05/21/[address] [place] [address] documented as of this encounter
--- OUTSIDE RECORDS SUMMARY | 2022-05-23 11:27 | XMS_ITS | Encounter Summary ---
:1935 Author Organization [facility] Address [address] [place] [address] Care Team Providers Name Role Phone Antonia Aldrich CRM SOLUTION ARCHITECT, CRYSTALIZER Primary Care Provider [phone] Reason for Visit Reason Onset Date Comments Med Refill 04/05/2019 Encounter Details Date Type Department Care Team Description 04/05/2019 Telephone Prasanth Hernandez Antonia Aldrich, Med Refill [address] CRM SOLUTION ARCHITECT, IVANA [place], [place] [address] [address] [facility] [address] [phone] [place], [place] [address] Social History Tobacco Use [...] 3:45 PM CDT Please fax Rx to [facility] Telephone Encounter - Katja Peter MA [...] trigger documented in this encounter Care Teams Commercial Lending Assistant Relationship Specialty Start Date End Date Antonia Aldrich APRN, CRYSTALIZER PCP - General 04/20/18 05/21/20 100 [facility] [place] [address] documented as of this encounter
--- OUTSIDE RECORDS SUMMARY | 2022-05-23 11:27 | XMS_ITS | Encounter Summary ---
:1935 Author Organization [facility] Address [address] [place] [address] Care Team Providers Name Role Phone Antonia Aldrich APRN, CNP Primary Care Provider [phone] Reason for Referral Consultation (Routine) - Closed Specialty Diagnoses / Procedures Referred By Contact Refer red To Contact Diagnoses Osteopenia, unspecified location Antonia Aldrich Mayo - Referrals APRN, CNP [id number] [place] [address] Fax: Referral ID Status Reason Start Date Expiration Date Visits Requ ested Visits Authorized [id number] Closed 04/08/2019 04/08/2020 1 1 Scheduling Instructions Please schedule after June 09 19. Thanks, Harman Consultation (Routine) - Closed Specialty Diagnoses / Procedures Referred By Contact Refer red To Contact Diagnoses Screening mammogram, encounter for Antonia Aldrich Mayo - Pee NAM CNP [id number] [place] [address] Fax: Referral ID Status Reason Start Date Expiration Date Visits Requ ested Visits Authorized [id number] Closed 04/08/2019 04/08/2020 1 1 Reason for Visit Reason Comments Consult Discuss having DEXA Encounter Details Date Type Department Care Team Description 04/07/2019 Office Visit Prasanth lAdrich Antonia Osteopenia, unspecified loca tion (Primary Dx); [address] M, IVANA NAM Screening mammogram, encounter for VAUGHN Mitchell [address] [facility] [address] [address] [place] [address] Social History Tobacco Use Types Packs/Day Years [...] - 04/07/2019 2:20 PM CDT Mammogram at [facility], they will call you to schedule DEXA [...] , Disp: , Rfl: ??? nystatin (MYCOSTATIN) [id number] UNIT/ML suspension, if needed, Disp: , Rfl: [...] and a DEXA scan after 06/09/2019, at [facility] in [place], and the order has been faxed. The [...] for documented in this encounter Care Teams Brownfield Redevelopment Specialist Relationship Specialty Start Date End Date Antonia Aldrich APRN, MEDICAL RECORD SPECIALIST PCP - General 04/20/18 05/21/20 100 [facility] [address] documented as of this encounter
--- OUTSIDE RECORDS SUMMARY | 2022-05-23 11:27 | XMS_ITS | Encounter Summary ---
:1935 Author Organization [facility] Address [address] [place] [address] Care Team Providers Name Role Phone Antonia Aldrich APRN, CNP Primary Care Provider [phone] Reason for Visit Reason Comments Follow-up [facility] FO[facility] UP Encounter Details Date Type Department Care Team Description 05/20/2019 Office Visit [place] Antonia Aldrich Follow up (Primary Dx); [address] M, IVANA NAM Oral thrush; [place], [place] [address] Gastroesophageal reflux disease, esophag itis presence not specified [address] [place], [place] [phone] [address] Social History Tobacco Use Types Packs/Day Years [...] Complaint Patient presents with ??? Follow-up [facility] FOLLOW UP HPI: The patient is a pleasant 84-year-old female presenting ambulatory to the clinical setting today in follow-up for recent hospitalization at [facility] in [place]. The patient was initially evaluated in the [...] she has had her eyes re-evaluated at [facility], and has a follow-up appointment scheduled. The [...] , Disp: , Rfl: ??? nystatin (MYCOSTATIN) [id number] UNIT/ML suspension, Take 5 mL (500,000 Units [...] up (Primary) Oral thrush - nystatin (MYCOSTATIN) [id number] UNIT/ML suspension; Take 5 mL (500,000 Units total) by mouth 4 (four)times a day Swish in mouth and swallow. Gastroesophageal reflux disease, esophagitis presence not specified - omeprazole (PriLOSEC) [address] capsule; Take 1 capsule (40 mg total) by mouth 1 (one) time each day Discussed the plan of care with the patient. The patient has an eye evaluation, with an nursing support worker scheduled at [facility]. The patient will continue to do her [...] specified documented in this encounter Care Teams Prototype Machinist Relationship Specialty Start Date End Date Antonia Aldrich APRN, CROZE CUTTER HELPER PCP - General 04/20/18 05/21/20 100 [facility] [place] [address] documented as of this encounter
--- OUTSIDE RECORDS SUMMARY | 2022-05-23 11:27 | XMS_ITS | Encounter Summary ---
:1935 Author Organization [facility] Address [address] [place] [address] Care Team Providers Name Role Phone Antonia Aldrich APRN, IVANA Primary Care Provider [phone] Encounter Details Date Type Department Care Team Description 11/10/2018 Orders Only Prasanth Hernandez Antonia Aldrich, Onychomycosis [address] [place], [place] [address] [address] [facility] [address] [phone] [place], [place] [address] Social History Tobacco Use [...] - 11/10/2018 11:52 AM CST Prescription renewed. N RESOURCE ASSISTANT documented in this encounter Plan of Treatment Not on filedocumented as of this encounter Visit Diagnoses Diagnosis Onychomycosis Dermatophytosis of nail documented in this encounter Care Teams Quality Control Assistant Relationship Specialty Start Date End Date Antonia Aldrich APRN, LIVESTOCK PRODUCER PCP - General 04/20/18 05/21/[address] [place] [address] documented as of this encounter
--- OUTSIDE RECORDS SUMMARY | 2022-05-23 11:27 | XMS_ITS | Encounter Summary ---
:1935 Author Organization [facility] Address [address] [place] [address] Care Team Providers Name Role Phone Antonia Aldrich HAIRSPRING STUDDER, STATION GATEMAN Primary Care Provider [phone] Reason for Visit Reason Onset Date Comments Med Refill 09/28/2018 Encounter Details Date Type Department Care Team Description 09/28/2018 Refill Prasanth Hernandez Antonia Aldrich, Allergic rhinitis, [address] HAIRSPRING STUDDER, IV[place] unspecified [place] [address] seasonality, [place], [place] [address] unspecified trigger (Primary Dx) [...] LPN - 09/28/2018 10:15 AM CST SENT ORY ASSEMBLER Telephone Encounter - Antonia Aldrich APRN, CNP - 09/28/2018 9:48 AM FACTORY ASSEMBLER The medication has been renewed as requested for 6 months, and needs to be faxed to pharmacy of choice. Thanks Harman ORY ASSEMBLER Telephone Encounter - Rosa Wells LPN - 09/28/2018 7:43 AM CST Rochelle Dai pending [facility] ORY ASSEMBLER documented in this encounter Plan of Treatment Not on filedocumented as of this encounter Visit Diagnoses Diagnosis Allergic rhinitis, unspecified seasonali ty, unspecified trigger - Primary documented in this encounter Care Teams Drop Wire Builder Relationship Specialty Start Date End Date Antonia Aldrich APRN, STATION GATEMAN PCP - General 04/20/18 05/21/20 100 [facility] [place] [address] documented as of this encounter
--- OUTSIDE RECORDS SUMMARY | 2022-05-23 11:27 | XMS_ITS | Encounter Summary ---
:1935 Author Organization [facility] Address [address] [place] [address] Care Team Providers Name Role Phone Antonia Aldrich APRN, CNP Primary Care Provider [phone] Reason for Visit Reason Comments Ear Fullness Encounter Details Date Type Department Care Team Description 11/05/2018 Office Visit Prasanth Hernandez Antonia Aldrich Impacted cerumen of left ear (Primary Dx); [address] M, IVANA NAM Onychomycosis; [place], [place] [address] Coccyx pain; [address] [place] [address] Medication monitoring encounter [phone] Social History Tobacco Use Types Packs/Day Years [...] Comments Blood Pressure 128/74 11/05/2018 10:13 AM MARKETING SECRETARY Pulse 76 11/05/2018 10:13 AM MARKETING SECRETARY Temperature 35.8 ??C (96.5 ??F) 11/05/2018 10:13 AM MARKETING SECRETARY Respiratory Rate 16 11/05/2018 10:13 AM MARKETING SECRETARY Oxygen Saturation 99% 11/05/2018 10:13 AM MARKETING SECRETARY Inhaled Oxygen Concentration - - Weight 74.3 kg (163 lb 12.8 oz) 11/05/2018 10:13 AM MARKETING SECRETARY Height 160 cm (5' 2.99) 11/05/2018 10:13 AM MARKETING SECRETARY Body Mass Index 29.02 11/05/2018 10:13 AM MARKETING SECRETARY documented in this encounter Patient Instructions Patient InstructionsChharsahd Aldrich APRN, CNP - 11/05/2018 10:20 AM MARKETING SECRETARY Oral medication fungal infection, month liver enzymes Will call you with the lab results ETING SECRETARY documented in this encounter Progress Notes Antonia [...] patient reports she has been biking for -50 minutes and then walks for 10-15 minutes [...] repeated, order placed. The patient can take [id number] pain relievers for her coccyx pain which is likelyfrom the stationary exercise bike. She could consider changing the routine or repositioning the seat. The patient agrees and understands this plan of care. Antonia Aldrich APRN, CNP ETING SECRETARY Sadia Gant MA - 11/05/2018 10:20 AM [...] of procedure: Tolerated well, no immediate complications ETING SECRETARY documented in this encounter Plan of Treatment Not on filedocumented as of this encounter Procedures Procedure Name Priority Date/Time Associated Diagnosis Comme nts EAR CERUMEN REMOVAL Routine 11/05/2018 10:20 AM Impacted cerum en of Results for this MARKETING SECRETARY left ear procedure are i n the results section. documented in this encounter Results (ABNORMAL) Liver panel (12/10/2018 10:16 AM CDT) Analysis Performed At [facility] Signature Total Protein 6.8 6.3 - 8.2 12/10/2018 [place] g/dL 6:37 PM [facility] Albumin, Serum 3.8 3.5 - 5.0 12/10/2018 [place] g/dL 6:37 PM [facility] Total Bilirubin <0.7 0.1 - 1.0 12/10/2018 [place] mg/dL 6:37 PM [facility] Bilirubin, <0.1 0.0 - 0.3 12/10/2018 [place] Direct mg/dL 6:37 PM [facility] AST 53 (H) 8 - 43 U/L 12/10/2018 [place] 6:37 PM [facility] Alkaline 57 38 - 128 12/10/2018 [place] Phosphatase U/L 6:37 PM [facility] ALT (SGPT) 70 (H) 0 - 34 U/L 12/10/2018 [place] 6:37 PM [facility] Specimen Anatomical Collection Method Collection Time Receive d Time (Source) Location / / Volume Laterality Blood (Blood, 12/10/2018 10:16 12/10/2018 6:12 Venous) AM CDT PM CDT Antonia Aldrich APRN, CNP LAB BLOOD ORDERABLES Performing Organization Address City/State/ZIP Code Phon e Number [facility] [address] [place] [address] (ABNORMAL) Liver panel (11/05/2018 11:18 AM MARKETING SECRETARY) Analysis Performed At [facility] Signature Total Protein 6.7 6.3 - 8.2 11/05/2018 [place] g/dL 6:41 PM [facility] Albumin, Serum 4.1 3.5 - 5.0 11/05/2018 [place] g/dL 6:41 PM [facility] Total Bilirubin <0.7 0.1 - 1.0 11/05/2018 [place] mg/dL 6:41 PM [facility] Bilirubin, <0.1 0.0 - 0.3 11/05/2018 [place] Direct mg/dL 6:41 PM [facility] AST 50 (H) 8 - 43 U/L 11/05/2018 [place] 6:41 PM [facility] Alkaline 57 38 - 128 11/05/2018 [place] Phosphatase U/L 6:41 PM [facility] ALT (SGPT) 82 (H) 0 - 34 U/L 11/05/2018 [place] 6:41 PM [facility] Comment: NOTE: Normal range change effective 08/15 Specimen Anatomical Collection Method Collection Time Receive d Time (Source) Location / / Volume Laterality Blood (Blood, 11/05/2018 11:18 11/05/2018 6:41 Venous) AM MARKETING SECRETARY PM MARKETING SECRETARY Antonia Aldrich APRN, CNP LAB BLOOD ORDERABLES Performing Organization Address City/State/ZIP Code Phon e Number [facility] [address] [place], [place] [phone] Ear cerumen removal (11/05/2018 10:20 AM [facility]) Narrative Antonia Aldrich APRN, CNP - 019 10:20 AM MARKETING SECRETARY Antonia Aldrich APRN, CNP ? 11/14/2018 ??3:10 [...] well, no immediate complications Antonia Aldrich APRN, GAS OR WATER METER INSTALLER IN CLINIC/BEDSIDE ORDERAB LES documented in this encounter Visit Diagnoses Diagnosis Impacted cerumen of left ear - Primary Impacted cerumen Onychomycosis Dermatophytosis of nail Coccyx pain Other disorder of coccyx Medication monitoring encounter Encounter for therapeutic drug monitorin g documented in this encounter Care Teams Supply Chain Design Manager Relationship Specialty Start Date End Date Antonia Aldrich APRN, GAS OR WATER METER INSTALLER PCP - General 04/20/18 05/21/20 100 [place] [address] documented as of this encounter
--- OUTSIDE RECORDS SUMMARY | 2022-05-23 11:27 | XMS_ITS | Encounter Summary ---
:1935 Author Organization [facility] Address [address] [place] [address] Care Team Providers Name Role Phone Antonia Aldrich INFANTRY SENIOR SERGEANT, CHIEF PRIVACY OFFICER Primary Care Provider [phone] Reason for Visit Reason Onset Date Comments FLU SHOT 07/20/2018 Encounter Details Date Type Department Care Team Description 07/20/2018 Telephone Prasanth Hernandez Antonia Aldrich, FLU SHOT [address] INFANTRY SENIOR SERGEANT, IV[place] [address] [facility] [facility] [phone] [place], [place] [address] Social History Tobacco Use [...] a detailed message with bottom information given. [place] SALES ASSISTANT Telephone Encounter - Antonia Aldrich APRN, CNP - 07/20/2018 2:04 PM RETAIL SALES ASSISTANT In the past checking her medical records but they did not recommend splitting of the flu shot. Kaleigh Hammer [place] SALES ASSISTANT Telephone Encounter - Amber Jon RN - 07/20/2018 1:32 PM CST Just to clarify, they do not recommend the flu shot at all? Or splitting it up into 2 doses? [place] SALES ASSISTANT Telephone Encounter - Antonia Aldrich APRN, CNP - 07/20/2018 1:18 PM RETAIL SALES ASSISTANT Our immunization clinic states no that they do not recommend this. [place] SALES ASSISTANT Telephone Encounter - Amber Jon RN - 07/20/2018 1:08 PM CST Harman, What would you recommend for this patients flu shot? [place] SALES ASSISTANT Telephone Encounter - Kathryn Spring - 07/20/2018 10:38 AM CST The patient has had a reaction to the flu shot previously and it was recommended that she receive this year's in a two-step dosing. She'd like to know if we'd be able to do that here. Please leave a yes or no message on the home line for her. [place] SALES ASSISTANT documented in this encounter Plan of Treatment Not on filedocumented as of this encounter Visit Diagnoses Not on filedocumented in this encounter Care Teams Outreach Consultant Relationship Specialty Start Date End Date Antonia Aldrich APRN, IVANA PCP - General 04/20/18 05/21/20 [address] [place] [address] documented as of this encounter
--- OUTSIDE RECORDS SUMMARY | 2022-05-23 11:27 | XMS_ITS | Encounter Summary ---
:[address] [facility] Address [address] [place] [address] Care Team Providers Name Role Phone Antonia Aldrich APRN, WHOLESALER Primary Care Provider [phone] Encounter Details Date Type Department Care Team [...] - 8.2 02/03/2019 [place] g/dL 1:02 PM [facility] Albumin, Serum 4.1 3.5 - 5.0 02/03/2019 [place] g/dL 1:02 PM [facility] Total Bilirubin <0.7 0.1 - 1.0 02/03/2019 [place] mg/dL 1:02 PM [facility] Bilirubin, <0.1 0.0 - 0.3 02/03/2019 [place] Direct mg/dL 1:02 PM [facility] AST 66 (H) 8 - 43 U/L 02/03/2019 [place] 1:02 PM [facility] Alkaline 63 38 - 128 02/03/2019 [place] Phosphatase U/L 1:02 PM [facility] ALT (SGPT) 89 (H) 0 - 34 U/L 02/03/2019 [place] 1:02 PM [facility] Specimen Anatomical Collection Method Collection Time Receive d Time (Source) Location / / Volume Laterality Blood (Blood, 02/02/2019 4:11 PM 02/04/20 19 Venous) CDT 12:12 PM CDT Antonia Aldrich APRN, CNP LAB BLOOD ORDERABLES Performing Organization Address City/State/ZIP Code Phon e Number [facility] [address] [place] [address] documented in this encounter Visit Diagnoses Diagnosis Medication monitoring encounter Encounter for therapeutic drug monitorin g documented in this encounter Care Teams Career Services Assistant Relationship Specialty Start Date End Date Antonia Aldrich APRN, WHOLESALER PCP - General 04/20/18 05/21/20 100 [facility] [place] [address] documented as of this encounter
--- OUTSIDE RECORDS SUMMARY | 2022-05-23 11:27 | XMS_ITS | Encounter Summary ---
:[address] [facility] Address [address] [place] [address] Care Team Providers Name Role Phone Antonia Aldrich GLUE WHEEL OPERATOR, TESTING SPECIALIST Primary Care Provider [phone] Encounter Details Date Type Department Care Team Description 02/02/2019 Orders Only Nikhil Hernandez Antonia Aldrich, Medication monitoring [address] [place] encounter (Primary [place] [address] Dx) [address] [place] [address] Social History Tobacco Use Types Packs/Day Years [...] - 8.2 02/03/2019 [place] g/dL 1:02 PM [facility] Albumin, Serum 4.1 3.5 - 5.0 02/03/2019 [place] g/dL 1:02 PM [facility] Total Bilirubin <0.7 0.1 - 1.0 02/03/2019 [place] mg/dL 1:02 PM [facility] Bilirubin, <0.1 0.0 - 0.3 02/03/2019 [place] Direct mg/dL 1:02 PM [facility] AST 66 (H) 8 - 43 U/L 02/03/2019 [place] 1:02 PM [facility] Alkaline 63 38 - 128 02/03/2019 [place] Phosphatase U/L 1:02 PM [facility] ALT (SGPT) 89 (H) 0 - 34 U/L 02/03/2019 [place] 1:02 PM [facility] Specimen Anatomical Collection Method Collection Time Receive d Time (Source) Location / / Volume Laterality Blood (Blood, 02/02/2019 4:11 PM 02/04/20 19 Venous) CDT 12:12 PM CDT Antonia Aldrich APRN, CNP LAB BLOOD ORDERABLES Performing Organization Address City/State/ZIP Code Phon e Number [facility] [address] [place] [address] documented in this encounter Visit Diagnoses Diagnosis Medication monitoring encounter - Primar y Encounter for therapeutic drug monitorin g documented in this encounter Care Teams Senior Ui Ux Developer Relationship Specialty Start Date End Date Antonia Aldrich APRN, TESTING SPECIALIST PCP - General 04/20/18 05/21/20 100 [place] [address] documented as of this encounter
--- OUTSIDE RECORDS SUMMARY | 2022-05-23 11:29 | XMS_ITS | Encounter Summary ---
:1935 Author Organization [facility] Address [address] [place] [address] Care Team Providers Name Role Phone Elsewhere, Pcp Primary Care Provider Unavailable Reason for Referral Outpatient (Routine) - Closed Specialty Diagnoses / Procedures Referred By Contact Refer red To Contact Diagnoses Pain Knee Left Mary Cortez APRN, [facility] [place] [facility] Procedures DX Knee Left 3 Views C[facility] D.N.P. [address] [place] [phone] Referral ID Status Reason Start Date Expiration Date Visits Requ ested Visits Authorized [id number] Closed 04/18/2022 04/18/2023 1 1 Reason for Visit Outpatient (Routine) - Closed Specialty Diagnoses / Procedures Referred By Contact Refer red To Contact Diagnoses Pain Knee Left Mary Cortez APRN, [facility] [place] [facility] Procedures DX Knee Left 3 Views C[facility] D.N.P. [address] [place] [address] Referral ID Status Reason Start Date Expiration Date Visits Requ ested Visits Authorized [id number] Closed 04/18/2022 04/18/2023 1 1 Encounter Details Date Type Department Care Team Description 04/18/2022 Hospital Encounter Department of Mary Cortez, Pain Knee Left Radiology in [place] [facility] C[facility] [place], [place] D.N.P. [address] [phone] Social History Tobacco Use [...] Left documented in this encounter Care Teams Fine Arts Packer Relationship Specialty Start Date End Date Elsewhere, Pcp PCP - General Family Medicine 01/31/21 documented as of this encounter
--- OUTSIDE RECORDS SUMMARY | 2022-05-23 11:29 | XMS_ITS | Clinical Summary ---
:[address] [facility] Address [address] [place] [address] Care Team Providers Name Role Phone Elsewhere, Pcp Primary Care Provider Unavailable Source Comments Patient records contain information from all sites at [facility]. For routine questions regarding patient records, call [phone] during business hours, M-F 8:00 AM - 5:00 PM Central Time. Record requests for emergency care only can be directed to [phone] at any time.[facility] Allergies Active Allergy Reactions Severity Noted Date [...] reasons reported), Other, Reported on 11/19/2021 omeprazole (PriLOSEC) 40 mg Take 1 capsule by mouth 0 05/20/[address] capsule daily. dorzolamide-timoloL (COSOPT) Administer 1 drop into 0 Active 22.3-6.8 mg/mL ophthalmic the right eye daily. solution cycloSPORINE (RESTASIS) 0.05 Administer 1 drop into 0 Active % ophthalmic emulsion both eyes 2 (two) times a day. fexofenadine-pseudoephedrine Take 1 tablet by mouth 2 0 Active (MING-D) 60-120 mg per 12 (two) times a day. hr tablet calcium carbonate-vitamin D3 Take 1 tablet by mouth 2 0 Active 1,500 mg (600 mg calcium)-10 (two) times a day with mcg (400 Unit) per tablet meals. meclizine (ANTIVERT) 25 mg Take 25 mg by mouth as 0 01/31/2021 Active tablet needed. losartan (COZAAR) 25 mg 0 10/17/2021 Active tablet colchicine (COLCRYS) 0.6 mg 0 10/21/2021 Active tablet alendronate (FOSAMAX) 70 mg TAKE 1 TABLET EVERY 7 12 tablet 3 03/05/2022 Active tablet DAYS (WEEKLY) ON AN EMPTY STOMACH, REMAIN UPRIGHT FOR AT LEAST 30 MINUTES Active Problems Problem Noted Date Osteoporosis 07/14/2019 Vertigo Benign Paroxysmal Positional Bilateral 019 Vertigo 05/12/2019 Arthritis Rheumatoid 10/25/2010 Overview: Arthritis, rheumatoid* Encounters Date Type Specialty Care Team Description 04/18/2022 Hospital Encounter Radiology Mary Cortez Pain K nee Left PUBLIC HEALTH INFORMATICIAN, C.N.P., D.N.P. 04/18/2022 Office Visit Orthopedic Surgery Mary Cortez Pain K nee Left PUBLIC HEALTH INFORMATICIAN, C.N.P., (Primary Dx) D.N.P. 03/04/2022 Comprehensive Visit Orthopedic Surgery Mary Cortez Pain Hip Left PUBLIC HEALTH INFORMATICIAN, C.N.P., (Primary Dx) D.N.P. 03/04/2022 Hospital Encounter Radiology Mary Cortez Pain H ip Left PUBLIC HEALTH INFORMATICIAN, C.N.P., D.N.P. from Last 3 Months Immunizations Name Administration [...] history exists Medical Devices Implanted Type Area [employer] Teacher Device Shelf Model / Identifier Expiration Serial / Date Lot Ocular Lens-02/26/2007 Ocular Left: Implanted: 02/26/2007 (Quantity not on file) Lens Eye Conversions - Default Historical Implant Device Ocular Implanted: 04/17/2015 (Quantity not on file) Lens Description: Device Status Text - OculrL ens. Procedures Procedure Name Priority Date/Time Associated Comments Diagnosis OR ARTHCS ASP/INJ Routine 04/18/2022 10:13 Pain Knee Left Resu lts for this MJR JT WO US AM CDT procedure are i n the results section. DX KNEE LEFT 3 RAD - Routine 04/18/2022 9:35 Pain Knee Left Results for this VIEWS (most inpatients AM CDT procedure a re in and all the results outpatients) section. OR ARTHCS ASP/INJ Routine 03/04/2022 9:35 Pain Hip Left Result s for this MJR JT WO US AM CDT procedure are i n the results section. DX HIP AND PELVIS RAD - Routine 03/04/2022 8:54 Pain Hip Left Resul ts for this LEFT 2-3 VIEWS (most inpatients AM CDT procedure are in and all the results outpatients) section. from Last 3 Months Results OR ARTHCS ASP/INJ MJR JT WO US (04/18/2022 [...] C.N.P., D.N.P. IMG DIAGNOSTIC IMAG ING PROCEDURES OR ARTHCS ASP/INJ MJR JT WO US (03/04/2022 9:35 AM CDT) Narrative MMODAL - 03/04/2022 9:35 AM CDT Dara Grace, RDannNDann ? 03/06/2022 11:02 AM Hip site - [...] ed for comfort and pain management instructions Barbara Schmidt APRN.Igor, D.N.P. PROCEDURE/MINOR MÓNICA GICAL ORDERABLES Performing Organization [...] mbar spine, and right hip. Esperanza Schmidt APRNN.Igor, D.N.P. IMG DIAGNOSTIC IMAG ING PROCEDURES from Last 3 Months Insurance Payer Benefit Plan Subscriber ID Effective Phone Address Typ e / Group Dates MEDICARE MEDICARE A [id number] 2002-Prese [address] Medicare AND B nt [id number] FOR FOR [id number] 2021-Prese [phone] [address] Indemnity LIFE LIFE nt [address] [place] [address] Advance Directives For more information, please contact: [phone] Latest Code Status on File Code Status Date Activated Date Inactivated Comments Full Code 01/30/2021 9:47 AM 01/31/2021 5:43 PM Full Code: Discussed Full Code 05/13/2019 9:21 PM 05/14/2019 5:58 PM Full Code: Discussed Full Code 05/12/2019 9:26 PM 05/13/2019 6:58 PM Full Code: Discussed Care Teams Headwaitress Relationship Specialty Start Date End Date Elsewhere, Pcp PCP - General Family Medicine 01/31/21
--- OUTSIDE RECORDS SUMMARY | 2022-05-23 11:29 | XMS_ITS | Encounter Summary ---
:1935 Author Organization [facility] Address [address] [place] [address] Care Team Providers Name Role Phone Elsewhere, Pcp Primary Care Provider Unavailable Encounter Details Date Type Department Care Team Description 02/07/2021 Diagnostic Department of Cathie Crystal Au.D. L oss Hearing Sensorineural Bilateral (Primary Dx); Otorhinolaryngology in Kenneth Delmy Alek [address] [place] [address] Vertigo [place], [place] [address] [place] [phone] Social History Tobacco Use Types Packs/Day [...] Vertigo documented in this encounter Care Teams Electrical Equipment Assembler Relationship Specialty Start Date End Date Elsewhere, Pcp PCP - General Family Medicine 01/31/21 documented as of this encounter
--- OUTSIDE RECORDS SUMMARY | 2022-05-23 11:29 | XMS_ITS | Encounter Summary ---
:1935 Author Organization [facility] Address [address] [place] [address] Care Team Providers Name Role Phone Elsewhere, Pcp Primary Care Provider Unavailable Reason for Referral MRI/CAT/PET Scan (Routine) - Closed Specialty Diagnoses / Procedures Referred By Contact Refer red To Contact Radiology Diagnoses Lesion Brain Candido Deutsch [facility] [place] [facility] Procedures MR Brain without and with IV Contrast Kenton Sage [address] [place] [phone] Referral ID Status Reason Start Date Expiration Date Visits Requ ested Visits Authorized [id number] Closed 02/04/2021 02/04/2022 1 1 Reason for Visit MRI/CAT/PET Scan (Routine) - Closed Specialty Diagnoses / Procedures Referred By Contact Refer red To Contact Radiology Diagnoses Lesion Brain Candido Deutsch [place] [facility] Procedures MR Brain without and with IV Contrast Kenton Sage [address] [place] [phone] Referral ID Status Reason Start Date Expiration Date Visits Requ ested Visits Authorized [id number] Closed 02/04/2021 02/04/2022 1 1 Encounter Details Date Type Department Care Team Description 03/21/2021 Hospital Encounter Department of Radiology Nara gonzalez, Lesion Brain in SawyerCandido M.D. [address] [place] [phone] Social History Tobacco Use Types Packs/Day Years [...] dose documented in this encounter Care Teams Research Director Relationship Specialty Start Date End Date Elsewhere, Pcp PCP - General Family Medicine 01/31/21 documented as of this encounter
--- OUTSIDE RECORDS SUMMARY | 2022-05-23 11:29 | XMS_ITS | Encounter Summary ---
:1935 Author Organization [facility] Address [address] [place] [address] Care Team Providers Name Role Phone Elsewhere, Pcp Primary Care Provider Unavailable Reason for Referral MRI/CAT/PET Scan (Routine) - Closed Specialty Diagnoses / Procedures Referred By Contact Refer red To Contact Radiology Diagnoses Lesion Brain Candido Deutsch [facility] Procedures MR Brain without and with IV Contrast Kenton Sage [address] [place] [phone] Referral ID Status Reason Start Date Expiration Date Visits Requ ested Visits Authorized [id number] Closed 02/04/2021 02/04/2022 1 1 Reason for Visit Outpatient (Routine) - Closed Specialty Diagnoses / Procedures Referred By Contact Refer red To Contact Neurology Diagnoses Vertigo Rio Shah M.D. [address] [phone] Referral ID Status Reason Start Date Expiration Date Visits V isits Requested Authorized [id number] Closed Specialty 01/30/2021 01/30/2022 1 1 Services Required Encounter Details Date Type Department Care Team Description 02/04/2021 Comprehensive Visit Department of Jamal trivedi (Primary Dx); Neurology in , Candido Sage, Lesion Brain Kenton [place] [address] [place] [address] [place] [phone] Social History Tobacco Use Types Packs/Day Years [...] does not indicate any previous interactions with [facility]. I reviewed a recent MRI scan [...] this with her of 64 years in [place], [place]. She is a never smoker. FAMILY HISTORY Mrs. Leon has 3 children, all sons, and 7 grandchildren, all healthy. OBJECTIVE PHYSICAL EXAM I have reviewed vital signs as recorded in the EPIC record. General: [place] adult woman who looks younger than her stated age of 85 years. Dressed in sweater and slacks. Unaccompanied. Examined in Neurology Clinic on [facility]. Neuro: I did a focused neurologic [...] been seen. ASSESSMENT / PLAN DATA See [facility] for description of MRI from January 30, [...] Brain documented in this encounter Care Teams Lead Housekeeper Relationship Specialty Start Date End Date Elsewhere, Pcp PCP - General Family Medicine 01/31/21 documented as of this encounter
--- OUTSIDE RECORDS SUMMARY | 2022-05-23 11:29 | XMS_ITS | Encounter Summary ---
:1935 Author Organization [facility] Address [address] [place] [address] Care Team Providers Name Role Phone Elsewhere, Pcp Primary Care Provider Unavailable Reason for Referral Outpatient (Routine) - Closed Specialty Diagnoses / Procedures Referred By Contact Refer red To Contact Diagnoses Pain Hip Left Mary Cortez APRN, [facility] [place] [facility] Procedures DX Hip And Pelvis Left 2-3 Views C.N.P., D.N.P. [address] [place] [phone] Referral ID Status Reason Start Date Expiration Date Visits Requ ested Visits Authorized [id number] Closed 03/04/2022 03/04/2023 1 1 Reason for Visit Outpatient (Routine) - Closed Specialty Diagnoses / Procedures Referred By Contact Refer brannon To Contact Diagnoses Pain Hip Left Mary Cortez APRN, [facility] [place] [facility] Procedures DX Hip And Pelvis Left 2-3 Views C.N.P., D.N.P. [address] [place] [phone] Referral ID Status Reason Start Date Expiration Date Visits Requ ested Visits Authorized [id number] Closed 03/04/2022 03/04/2023 1 1 Encounter Details Date Type Department Care Team Description 03/04/2022 Hospital Encounter Department of Radiology Diego, Darc y L, Pain Hip Left in [place], SUPERVISOR HARDBOARD, C.N.P., [place] D.N.P. [address] [place] [phone] Social History Tobacco Use Types [...] Left documented in this encounter Care Teams Equipment Processer Storage Relationship Specialty Start Date End Date Elsewhere, Pcp PCP - General Family Medicine 01/31/21 documented as of this encounter
--- OUTSIDE RECORDS SUMMARY | 2022-05-23 11:29 | XMS_ITS | Encounter Summary ---
:1935 Author Organization [facility] Address [address] [place] [address] Care Team Providers Name Role Phone Elsewhere, Pcp Primary Care Provider Unavailable Reason for Referral Outpatient (Routine) - Authorized Specialty Diagnoses / Procedures Referred By Contact Refer red To Contact Dermatology Adelaida Quintana M.D . [address] [phone] Referral ID Status Reason Start Date Expiration Date Visits V isits Requested Authorized [id number] Authorized 11/19/2021 11/19/2022 1 1 Scheduling Instructions Full skin cancer screening exam in 3 thu UNITY RECREATION COORDINATOR Reason for Visit Reason Comments Lesion Appointment Request (Routine) - Closed Specialty Diagnoses / Procedures Referred By Contact Refer red To Contact Family Medicine Referral ID Status Reason Start Date Expiration Date Visits Requ ested Visits Authorized [id number] Closed 09/09/2021 09/09/2022 1 1 Encounter Details Date Type Department Care Team Description 11/19/2021 Office Visit Department of Adelaida Quintana, Keratosis Seborrheic (Primary Dx); Dermatology in [place] Jha [address] [phone] Social History Tobacco Use Types Packs/Day Years [...] today. She has not been seen by [facility] since 2001. She denies a personal [...] Electronically Signed: giancarlo Lagunas. 11/11/2021. 3:01 PM COMMUNITY RECREATION COORDINATOR. I, Adelaida Quintana M.D., personally performed the services described in this documentation. All medical record entries made by the scribe were at my direction and in my presence. I have reviewed the chart and discharge instructions (if applicable) and agree that the record reflects my personal performance and is accurate and complete. Adelaida Quintana M.D. UNITY RECREATION COORDINATOR documented in this encounter Plan of Treatment Scheduled Referrals Name Type Priority Associated Order Schedule Diagnoses Dermatology office Outpatient Referral Routine Ex pected: visit (clinic) 02/19/2022 (Approximate), Expires: 02/19/2023 documented as of this encounter Visit Diagnoses Diagnosis Keratosis Seborrheic - Primary Nevi Multiple documented in this encounter Care Teams Chiseler Head Relationship Specialty Start Date End Date Elsewhere, Pcp PCP - General Family Medicine 01/31/21 documented as of this encounter
--- OUTSIDE RECORDS SUMMARY | 2022-05-23 11:29 | XMS_ITS | Encounter Summary ---
:1935 Author Organization [facility] Address [address] [place] [address] Care Team Providers Name Role Phone Elsewhere, Pcp Primary Care Provider Unavailable Reason for Visit Reason Comments Med Refill Encounter Details Date Type Department Care Team Description 01/20/2022 Refill Division of Endocrinology in Arin Sandoval M.D., Med Refill [place], [place] Ph.D. [address] [place] [address] [place] [phone] [place] [address] [phone] (Wo rk) Social History Tobacco Use Types [...] on filedocumented in this encounter Care Teams Shoe Salesperson Relationship Specialty Start Date End Date Elsewhere, Pcp PCP - General Family Medicine 01/31/21 documented as of this encounter
--- OUTSIDE RECORDS SUMMARY | 2022-05-23 11:29 | XMS_ITS | Encounter Summary ---
:1935 Author Organization [facility] Address [address] [place] [address] Care Team Providers Name Role Phone Elsewhere, Pcp Primary Care Provider Unavailable Reason for Visit Reason Comments Dizziness Encounter Details Date Type Department Care Team Description 01/29/2021 Emergency [place] [facility] Jd Bobby, Vertigo (Primary Dx) Department P.A.-C. [address] [address] [place], [place] [phone] (Wo rk) Social History Tobacco Use [...] nystagmus is present. Symptoms are worse with [place]-Hallpike test. Skin: Skin is warm. ASSESSMENT/PLAN IMPRESSION [...] another facility and patient requests transfer to [facility]. No beds are available at [place] or any other hospital between here in [place]. Spoke with transfer center who arranged for transfer to [place]. Dr. Cole accepted the patient for admission to [facility]. Patient is stable at time of transfer. [...] Rapid, Varies Symptomatic (01/29/2021 10:57 PM CDT) [facility] Method Time Signature Influenza A, Negative Negative 01/29/2021 [facility] PCR, Rapid, V 11:29 PM CDT Influenza B, Negative Negative 01/29/2021 [facility] PCR, Rapid, V 11:29 PM CDT SARS CoV-2, Undetected Undetected 01/29/2021 CNFL PCR, Rapid, V 11:29 PM CDT Comment: ----ADDITIONAL INFORMATION---- This RT-PCR test was performed using the Sai SARS-CoV-2 and Influenza A/B Reagent assay from [employer], which has received Emergency Use Authori zation(EUA) by the U.S. Food and Drug Administration . Fact sheets for this Emergency Use Autho rization (EUA) assay can be found at the following link s: For Healthcare Providers: https://www.fda.gov/media/394554/downloa d For Patients: https://www.fda.gov/media/132971/downloa d Infl A/B, SARS CoV-2, PCR, Swab, Nasopharynx 01/29 11:29 PM CDT CNFL Source Specimen Anatomical Collection Method Collection Time Receive d Time (Source) Location / / Volume Laterality Varies 01/29/2021 10:57 01/29/2021 (Nasopharynx) PM CDT 11:01 PM CDT Jd Bobby P.A.-C. LAB MICROBIOLOGY - GENERAL O RDERABLES Performing Organization Address City/State/ZIP Code Phon e Number [facility]- [address] [place] [address] [place] [address] [address] (ABNORMAL) Basic Metabolic Panel (01/29/2021 9:15 [...] CDT eGFR-Black/Afri 64 >=60 01/29/2021 CNFL can Stateless mL/min/BSA 9:55 PM CDT Comment: ----ADDITIONAL INFORMATION---- Estimated GFR calculated using the 2009 CKD_EPI creatinine equation. eGFR Non-Black/ 56 (L) >=60 mL/min/BSA 01/29/2021 9:55 PM CDT CNFL Stateless Comment: ----ADDITIONAL INFORMATION---- Estimated GFR calculated using [...] Organization Address City/State/ZIP Code Phon e Number [facility]- [address] [place] [address] [place] [address] [address] (ABNORMAL) CBC with Differential, Blood (01/29/2021 9:15 PM CDT) [facility] Method Time Signature Hemoglobin 13.3 11.6 [...] Organization Address City/State/ZIP Code Phon e Number [facility]- [address] [place] [address] [place] [address] [address] documented in this encounter Visit Diagnoses [...] mg (ZOFRAN) (COMPLETED) 2108 (Given - Provider: Duyen Maradiaga R.N.) 4 mg, intravenous, Once, On Thu01/29/21 at 2106, For 1 dose documented in this encounter Additional Health Concerns Infection Onset Date Last Indicated Resolved Time COVID19 Pending 01/29/2021 01/29/2021 01/29/2021 11:29 PM CDT documented as of this encounter Care Teams Cardiac Cath Technologist Relationship Specialty Start Date End Date Elsewhere, Pcp PCP - General Family Medicine 08/26/17 01/30/21 documented as of this encounter
--- OUTSIDE RECORDS SUMMARY | 2022-05-23 11:29 | XMS_ITS | Encounter Summary ---
:1935 Author Organization [facility] Address [address] [place] [address] Care Team Providers Name Role Phone Elsewhere, Pcp Primary Care Provider Unavailable Reason for Referral Outpatient (Routine) - Closed Specialty Diagnoses / Procedures Referred By Contact Refer red To Contact Orthopedic Surgery Mary Cortez APRN, [facility] [place] [facility] C.N.P., D.N.P. [address] [place] [phone] Referral ID Status Reason Start Date Expiration Date Visits Requ ested Visits Authorized [id number] Closed 03/04/2022 03/04/2023 1 1 utpatient (Routine) - Authorized Specialty Diagnoses / Procedures Referred By Contact Refer red To Contact Diagnoses Pain Hip Left Mary Cortez APRN, [facility] [place] [facility] Procedures mjf-avsd-gfivaelk-elbow arthrocentesis: L greater troch bursa C.N.P., D.N.P. [address] [place] [phone] Referral ID Status Reason Start Date Expiration Date Visits V isits Requested Authorized [id number] Authorized 03/04/2022 03/04/2023 1 1 utpatient (Routine) - Closed Specialty Diagnoses / Procedures Referred By Contact Refer red To Contact Diagnoses Pain Hip Left Mary Cortez, CYRIL, [facility] Region Procedures DX Hip And Pelvis Left 2-3 Views C.N.P., D.N.P. [address] [place] [phone] Referral ID Status Reason Start Date Expiration Date Visits Requ ested Visits Authorized [id number] Closed 03/04/2022 03/04/2023 1 1 Reason for Visit Appointment Request (Routine) - Closed Specialty Diagnoses / Procedures Referred By Contact Refer red To Contact Orthopedic Surgery Referral ID Status Reason Start Date Expiration Date Visits Requ ested Visits Authorized [id number] Closed 02/06/2022 02/06/2023 1 1 Encounter Details Date Type Department Care Team Description 03/04/2022 Comprehensive Visit Department of Mary Cortez Pain Hip Left Orthopedic Surgery CYRIL, [facility].P[facility] [address] [place], [place] [phone] (Work) [phone] Social History Tobacco Use Types Packs/Day Years [...] R.N. - 03/04/2022 9:00 AM CDTAssociated Order(s): ehy-zddj-lxexazkz-elbow arthrocentesis: L greater troch bursa Post-Procedure Diagnose(s): [...] Name Priority Date/Time Associated Diagnosis Comme nts CA ARTHCS ASP/INJ Routine 03/04/2022 9:35 AM Pain Hip Left Res ults for this MJR JT WO US CDT procedure are i n the results section. documented in this encounter Results CA ARTHCS ASP/INJ MJR JT WO US (03/04/2022 [...] dose documented in this encounter Care Teams Marksmanship Instructor Relationship Specialty Start Date End Date Elsewhere, Pcp PCP - General Family Medicine 01/31/21 documented as of this encounter
--- OUTSIDE RECORDS SUMMARY | 2022-05-23 11:29 | XMS_ITS | Encounter Summary ---
:1935 Author Organization [facility] Address [address] [place] [address] Care Team Providers Name Role Phone Elsewhere, Pcp Primary Care Provider Unavailable Reason for Referral Outpatient (Routine) - Closed Specialty Diagnoses / Procedures Referred By Contact Refer red To Contact Diagnoses VerRio Funes M.D. [facility] Procedures Vestibular balance evaluation [address] [place] [phone] Referral ID Status Reason Start Date Expiration Date Visits Requ ested Visits Authorized [id number] Closed 01/30/2021 01/30/2022 1 1 Outpatient (Routine) - Closed Specialty Diagnoses / Procedures Referred By Contact Refer red To Contact Neurology Diagnoses Rio Gale M.D. [address] [address] Referral ID Status Reason Start Date Expiration Date Visits V isits Requested Authorized [id number] Closed Specialty 01/30/2021 01/30/2022 1 1 Services Required Encounter Details Date Type Department Care Team Description 01/30/2021 - Hospital Encounter [facility] Agnieszka Cole M.D., M.S. [address] [place] [phone] Vertigo (Primary Dx); 01/31/2021 [facility], Blake Espinoza M.D. [address] [place] [phone] Vertigo Benign Paroxysmal Positional Jeff [facility], [facility], Second floor [address] [place] [address] Social History Tobacco Use Types [...] PM CDT DISCHARGE SUMMARY BRIEF OVERVIEW Hospital: [facility] Discharge Provider: Blake Delacruz M.D. Primary Team: [facility] Medicine 3 ([facility]) Primary Care Providers: Elsewhere, Pcp (General) No [...] significant for lateral nystagmus and a positive Malin-Hallpike test. Basic labs were obtained and were unremarkable. She was treated with meclizine, ondansetron, and IV fluids without resolution of her symptoms. She was transferred to [facility] for further evaluation and management. ?? [...] AM CDT You were discharged from the [facility] Medicine 3 ([facility]) Service. Please identify this service name if you call with questions after hospitalization. [facility] experts agree: You should get a COVID-19 vaccine as soon as it's available to you. ??? The vaccines that we???re recommending have been approved for safe use. ??? [facility] will continue to coordinate with state and local governments on future vaccine distribution phases. o If your primary care provider is at [facility] and you plan to receive your vaccination at [facility], please ensure that you have activated your Patient Portal at [email or web address] to allow [facility] to communicate to you about the scheduling [...] 01/31/2021 by Efrain Hendrix P.T. Contact information: [facility], [address], AttachmentsThe following attachments cannot be sent through Care Everywhere. Meclizine (By mouth) (Nepali)documented in this encounter Medications at Time of [...] mary. Therapist also educates on use of casting machine set up operator should figure 4 technique become difficult . [...] Retested for benign paroxysmal positional vertigo with Malin-Hallpike and roll test with negative nystagmus or [...] 01/31/2021 6:48 AM CDT T Medicine 3 ([facility]) PROGRESS NOTE SUBJECTIVE No acute events overnight. [...] intact. No evidence of disorganizedthinking. 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 DIAGNOSTICS I have personally reviewed the laboratory data and imaging since admission, and in/outs for past 72 hours. ASSESSMENT / PLAN Ms. Leon is hospitalized on [place] [address] ([facility]) for evaluation and management of an acute [...] 6-8 weeks. #1 Vertigo - Ondansetron PO [id number] PRN for nausea and vomiting - Meclizine [...] with vertigo. HISTORY OF PRESENT ILLNESS Ms. Leon is an 85 y/o F with a [...] Tejeda M.D. - 01/30/2021 12:07 AM CDT [facility] Medicine 3 ([facility]) Admission Note SUBJECTIVE CHIEF COMPLAINT Dizziness HISTORY [...] significant for lateral nystagmus and a positive Malin-Hallpike test. Basic labs were obtained and were unremarkable. She was treated with meclizine, ondansetron, and IV fluids without resolution of her symptoms. She was transferred to [facility] for further evaluation and management. On [...] intact. No evidence of disorganizedthinking. 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 DIAGNOSTICS I have reviewed the labs and diagnostics from admission. ASSESSMENT / PLAN Ms. Leon is hospitalized on [facility] 3 ([facility]) for evaluation and management of an acute [...] vestibular rehab. #1 Vertigo - Ondansetron PO [id number] PRN for nausea and vomiting - Meclizine [...] Role: Retired Prior Mobility/Functional Transfers Level of Col[place]: Independent Home Living Type of Home: House [...] - 01/30/2021 10:08 AM CDT Physical Therapy [facility] Inpatient Evaluation/Treatment SUBJECTIVE Referring/Attending Provider: Blake [...] significant for lateral nystagmus and a positive Malin-Hallpike test. Basic labs were obtained and were unremarkable. She was treated with meclizine, ondansetron, and IV fluids without resolution of her symptoms. She was transferred to [facility] for further evaluation and management. ?? [...] Name Type Priority Associated Diagnoses Order [facility] Neurology - General Outpatient Referral Routine Vertigo [...] PRN, dizziness, Starting on Thu01/30/21 at 0210 qpimthebidsx-fjda-DC-Ca-minerals 400 mcg Given 01/31/2021 8:02 A M [...] for fexofenadine 60 mg oral twice daily gtqemnpdofhy-eiok-PC-Ca-minerals 400 mcg (folic acid) tablet 1 tablet [...] - Provider: Antonia Servin([place])(MR) - Comment: lot# [id number]) 0.01-30 mL, intravenous, Once in imaging , [...] contact. documented in this encounter Care Teams Historical Records Administrator Relationship Specialty Start Date End Date Elsewhere, Pcp PCP - General Family Medicine 01/31/21 documented as of this encounter
--- OUTSIDE RECORDS SUMMARY | 2022-05-23 11:29 | XMS_ITS | Encounter Summary ---
:1935 Author Organization [facility] Address [address] [place] [address] Care Team Providers Name Role Phone Elsewhere, Pcp Primary Care Provider Unavailable Reason for Visit Outpatient (Routine) - Closed Specialty Diagnoses / Procedures Referred By Contact Refer red To Contact Otorhinolaryngology Diagnoses Vertigo [facility] Candido Sage M.D. [address] [place] [phone] Referral ID Status Reason Start Date Expiration Date Visits V isits Requested Authorized [id number] Closed Specialty 03/19/2021 03/19/2022 1 1 Services Required Encounter Details Date Type Department Care Team Description 03/26/2021 Comprehensive Visit Department of Kush Sellers Otorhinolaryngology in [place], [place] M.S., M.P.H. [address] [place] [address] [place] [phone] [place], [place] [phone] Social History Tobacco Use Types Packs/Day Years [...] caused her to be hospitalized here at [facility]. She has been elsewhere given a diagnosis [...] Vertigo documented in this encounter Care Teams Rubber Gasket Inspector Trimmer Relationship Specialty Start Date End Date Elsewhere, Pcp PCP - General Family Medicine 01/31/21 documented as of this encounter
--- OUTSIDE RECORDS SUMMARY | 2022-05-23 11:29 | XMS_ITS | Encounter Summary ---
:1935 Author Organization [facility] Address [address] [place] [address] Care Team Providers Name Role Phone Elsewhere, Pcp Primary Care Provider Unavailable Encounter Details Date Type Department Care Team Description 01/30/2021 Orders Only Department of Otorhinolaryngology Radha Edwards in [place], [facility] stephanie Fung [address] [facility] [address] [place] [address] [place], [place] [phone] Social History Tobacco Use Types Packs/Day Years [...] on filedocumented in this encounter Care Teams Weigher Production Relationship Specialty Start Date End Date Elsewhere, Pcp PCP - General Family Medicine 01/31/21 documented as of this encounter
--- OUTSIDE RECORDS SUMMARY | 2022-05-23 11:29 | XMS_ITS | Encounter Summary ---
:1935 Author Organization [facility] Address [address] [place] [address] Care Team Providers Name Role Phone Elsewhere, Pcp Primary Care Provider Unavailable Reason for Visit Reason Comments Extremity Laceration Pt presents to ED with left leg laceration after slipping on concrete step. Pt denies hit ting head or loc. Encounter Details Date Type Department Care Team Description 02/16/2021 Emergency [facility], Laceration Lower Leg Department P.A.-C. Without Foreign Body [address] [place] [address] Initial Left (Primary [place] [facility] Dx) [address] VAU[place]N [place] [phone] [address] Social History Tobacco Use Types Packs/Day [...] sent through Care Everywhere. Laceration Care Adult (Bermudian)documented in this encounter Medications at Time of [...] dose documented in this encounter Care Teams Sterile Process Tech Relationship Specialty Start Date End Date Elsewhere, Pcp PCP - General Family Medicine 01/31/21 documented as of this encounter
--- OUTSIDE RECORDS SUMMARY | 2022-05-23 11:29 | XMS_ITS | Encounter Summary ---
:1935 Author Organization [facility] Address [address] [place] [address] Care Team Providers Name Role Phone Elsewhere, Pcp Primary Care Provider Unavailable Reason for Referral Outpatient (Routine) - Authorized Specialty Diagnoses / Procedures Referred By Contact Refer red To Contact Diagnoses Pain Knee Left Mary Cortez APRN, [facility] [place] [facility] Procedures ptr-nxgm-fogmpsml-elbow arthrocentesis: L knee joint C.N.P., D.N.P. [address] [place] [address] Referral ID Status Reason Start Date Expiration Date Visits V isits Requested Authorized [id number] Authorized 04/18/2022 04/18/2023 1 1 utpatient (Routine) - Closed Specialty Diagnoses / Procedures Referred By Contact Refer red To Contact Diagnoses Pain Knee Left Mary Cortez APRN, [facility] [place] [facility] Procedures DX Knee Left 3 Views C.N.P., D.N.P. [address] [place] [address] Referral ID Status Reason Start Date Expiration Date Visits Requ ested Visits Authorized [id number] Closed 04/18/2022 04/18/2023 1 1 Reason for Visit Reason Comments Follow-up Trochanteric injection 03/04- would say pain is much better after injection, at night now gets pain from hip down thigh to left knee Pain Outpatient (Routine) - Closed Specialty Diagnoses / Procedures Referred By Contact Refer red To Contact Orthopedic Surgery Mary Cortez, CYRIL, [facility] C.N.P., D.N.P. [address] [place] [phone] Referral ID Status Reason Start Date Expiration Date Visits Requ ested Visits Authorized [id number] Closed 03/04/2022 03/04/2023 1 1 Encounter Details Date Type Department Care Team Description 04/18/2022 Office Visit Department of Mary Cortez Pain Knee L eft Orthopedic Surgery in [place], C.N.PDann, (Prim carlos Dx) Jelly MitchellNOlivia [address] [phone] [phone] Social History Tobacco Use Types Packs/Day Years [...] R.N. - 04/18/2022 9:00 AM CDTAssociated Order(s): uos-nmkb-zcnfbobn-elbow arthrocentesis: L knee joint Post-Procedure Diagnose(s): Pain [...] Name Priority Date/Time Associated Diagnosis Comme nts MS ARTHCS ASP/INJ Routine 04/18/2022 10:13 AM Pain Knee Left R esults for this MJR JT WO US CDT procedure are i n the results section. documented in this encounter Results MS ARTHCS ASP/INJ MJR JT WO US (04/18/2022 [...] dose documented in this encounter Care Teams Carbon Paper Coating Machine Setter Relationship Specialty Start Date End Date Elsewhere, Pcp PCP - General Family Medicine 01/31/21 documented as of this encounter
--- OUTSIDE RECORDS SUMMARY | 2022-05-23 11:29 | XMS_ITS | Encounter Summary ---
:1935 Author Organization [facility] Address [address] [place] [address] Care Team Providers Name Role Phone Elsewhere, Pcp Primary Care Provider Unavailable Reason for Visit Reason Comments Follow-up Baby aspirin Encounter Details Date Type Department Care Team Description 02/14/2021 Clinical Communication Department of Seda How-caroline (Baby Neurology in A, R.N. aspirin) [address] [place] [address] [place], [place] [phone] (Work) [phone] Social History Tobacco Use Types Packs/Day Years [...] on filedocumented in this encounter Care Teams Manager Care Management Relationship Specialty Start Date End Date Elsewhere, Pcp PCP - General Family Medicine 01/31/21 documented as of this encounter
--- OUTSIDE RECORDS SUMMARY | 2022-05-23 11:29 | XMS_ITS | Encounter Summary ---
:1935 Author Organization [facility] Address [address] [place] [address] Care Team Providers Name Role Phone Elsewhere, Pcp Primary Care Provider Unavailable Reason for Visit Reason Comments Med Refill Encounter Details Date Type Department Care Team Description 02/18/2021 Refill Division of Endocrinology in Arin Sandoval M.D., Med Refill [place], [place] Ph.D. [address] [place] [address] [place] [address] [place] [address] [phone] (Wo rk) Social History Tobacco Use Types [...] on filedocumented in this encounter Care Teams Oracle Technical Architect Relationship Specialty Start Date End Date Elsewhere, Pcp PCP - General Family Medicine 01/31/21 documented as of this encounter
--- OUTSIDE RECORDS SUMMARY | 2022-05-23 11:29 | XMS_ITS | Encounter Summary ---
:1935 Author Organization [facility] Address [address] [place] [address] Care Team Providers Name Role Phone Elsewhere, Pcp Primary Care Provider Unavailable Encounter Details Date Type Department Care Team Description 07/09/2021 Immunization Department of [facility] Matty Wilkinson, Medicine, [place] M.D. Professional Building, in [address] [place], [place] [address] [place] [address] AVE [address] [place] [address] [phone] Social History Tobacco Use Types Packs/Day Years [...] on filedocumented in this encounter Care Teams Stem Thresh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 Relationship Specialty Start Date End Date Elsewhere, Pcp PCP - General Family Medicine 01/31/21 documented as of this encounter
--- OUTSIDE RECORDS SUMMARY | 2022-05-23 11:29 | XMS_ITS | Encounter Summary ---
:1935 Author Organization [facility] Address [address] [place] [address] Care Team Providers Name Role Phone Elsewhere, Pcp Primary Care Provider Unavailable Reason for Visit Appointment Request (Routine) - Closed Specialty Diagnoses / Procedures Referred By Contact Refer red To Contact Physical Therapy Diagnoses Vertigo Referral ID Status Reason Start Date Expiration Date Visits Requ ested Visits Authorized [id number] Closed 04/09/2021 04/09/2022 1 1 Encounter Details Date Type Department Care Team Description 04/09/2021 Comprehensive Visit Department of Tyler Hodges M.D. [address] [place] [phone] Rehabilitation Services Faviola Guerrero, P.T. [address] [place] [phone] [phone] Social History Tobacco Use Types Packs/Day Years [...] AND B / Product Type: Medicare / FSP Instruments Visit Count: 1 PERTINENT MEDICAL / SURGICAL [...] Guerrero P.T. Department of Rehabilitation Services in [address] [address] Dept: [phone] documented in this encounter Plan of Treatment Not on filedocumented as of this encounter Visit Diagnoses Not on filedocumented in this encounter Care Teams Water Resources Engineer Relationship Specialty Start Date End Date Elsewhere, Pcp PCP - General Family Medicine 01/31/21 documented as of this encounter
--- OUTSIDE RECORDS SUMMARY | 2022-05-23 11:29 | XMS_ITS | Encounter Summary ---
:1935 Author Organization [facility] Address [address] [place] [address] Care Team Providers Name Role Phone Elsewhere, Pcp Primary Care Provider Unavailable Reason for Visit Outpatient (Routine) - Closed Specialty Diagnoses / Procedures Referred By Contact Refer red To Contact Diagnoses Vertigo Rio Shah M.D. [facility] Procedures Vestibular balance evaluation 200 [place] [address] Referral ID Status Reason Start Date Expiration Date Visits Requ ested Visits Authorized [id number] Closed 01/30/2021 01/30/2022 1 1 Encounter Details Date Type Department Care Team Description 02/12/2021 Diagnostic Department of Otorhinolaryngology Alfosno Hernandez in [facility] Gabe Welch, M.S. [address] [place] [address] [place] [phone] [place], [place] [phone] Social History Tobacco Use Types Packs/Day Years Used Date Smoking Tobacco: Never Smokeless Tobacco: Never Alcohol Use Standard Drinks/Week Comments Not Currently 0 (1 standard drink = 0.6 oz pure alcoho l) Sex Assigned at Date Recorded Not on file documented as of this encounter Consult Notes Alfonso Eisenberg M.S. - 02/12/2021 10:00 AM CDT DEMOGRAPHIC INFORMATION [facility] Number: [id number] Patient Name: Ms. Kathryn Leon Age: 85 y.o. Birthdate: 1935 Sex: female Address: [address] [place] [phone] Provider: Alfonso Eisenberg M.S. Service: ENT/ Vestibular [...] caused her to be hospitalized here at [facility]. She hasbeen elsewhere given a diagnosis of [...] Positioning Testing Jimmy-Hallpike head hanging right: negative Woodburn-Hallpike head hanging left: negative Caloric Testing Caloric [...] Vertigo documented in this encounter Care Teams Communications Strategist Relationship Specialty Start Date End Date Elsewhere, Pcp PCP - General Family Medicine 01/31/21 documented as of this encounter
--- OUTSIDE RECORDS SUMMARY | 2022-05-23 11:29 | XMS_ITS | Encounter Summary ---
:1935 Author Organization [facility] Address [address] [place] [address] Care Team Providers Name Role Phone Elsewhere, Pcp Primary Care Provider Unavailable Reason for Visit Appointment Request (Routine) - Closed Specialty Diagnoses / Procedures Referred By Contact Refer red To Contact Family Medicine Referral ID Status Reason Start Date Expiration Date Visits Requ ested Visits Authorized [id number] Closed 02/06/2022 02/06/2023 1 1 Encounter Details Date Type Department Care Team Description 02/12/2022 Immunization Department of [facility] Matty Wilkinson Medicine, [facility], in [address] [address] [place], [place] [address] [phone] Social History Tobacco Use Types Packs/Day Years [...] on filedocumented in this encounter Care Teams Tone Regulator Relationship Specialty Start Date End Date Elsewhere, Pcp PCP - General Family Medicine 01/31/21 documented as of this encounter
--- OUTSIDE RECORDS SUMMARY | 2022-05-23 11:29 | XMS_ITS | Encounter Summary ---
:1935 Author Organization [facility] Address [address] [place] [address] Care Team Providers Name Role Phone Elsewhere, Pcp Primary Care Provider Unavailable Encounter Details Date Type Department Care Team Description 02/03/2022 [facility] Antonia Aldrich Pain Hip Left AND CLINICS M, C.N.P. (Primary Dx) [address] [facility] [address] [place] [address] [phone] Social History Tobacco Use Types Packs/Day Years [...] Primary documented in this encounter Care Teams Environmental Services Lead Relationship Specialty Start Date End Date Elsewhere, Pcp PCP - General Family Medicine 01/31/21 documented as of this encounter
--- OUTSIDE RECORDS SUMMARY | 2022-05-23 11:29 | XMS_ITS | Encounter Summary ---
:1935 Author Organization [facility] Address [address] [place] [address] Care Team Providers Name Role Phone Elsewhere, Pcp Primary Care Provider Unavailable Reason for Referral Outpatient (Routine) - Closed Specialty Diagnoses / Procedures Referred By Contact Refer red To Contact Diagnoses Screening Mammogram Breast Cancer Antonia Aldrich [facility] [place] [facility] Procedures BI Breast Screening Bilateral with Tomosynthesis C.N.P. [address] [place], [place] [address] Referral ID Status Reason Start Date Expiration Date Visits Requ ested Visits Authorized [id number] Closed 02/06/2022 02/06/2023 1 1 Reason for Visit Outpatient (Routine) - Closed Specialty Diagnoses / Procedures Referred By Contact Refer red To Contact Diagnoses Screening Mammogram Breast Cancer Antonia Aldrich [facility] [place] [facility] Procedures BI Breast Screening Bilateral with Tomosynthesis C.N.P. [address] [place], [place] [address] Referral ID Status Reason Start Date Expiration Date Visits Requ ested Visits Authorized [id number] Closed 02/06/2022 02/06/2023 1 1 Encounter Details Date Type Department Care Team Description 02/11/2022 Hospital Encounter Department of Antonia Aldrich Mammogram Radiology in Esperanza KapoorNOlivia Breast Cancer [place], [place] [address] [place] [address] [place] [phone] (Work) [phone] Social History Tobacco Use Types Packs/Day Years [...] Imaging RST LOS, Breast Imaging ARZ LOS, [address] Bilateral Mammography Imaging FLA LOS Specimen [...] TOMOSYNTHESIS Current study was evaluated with a GigParku ter Aided Detection (CAD) system. INDICATION: Screening [...] Cancer documented in this encounter Care Teams Maxillofacial Surgeon Relationship Specialty Start Date End Date Elsewhere, Pcp PCP - General Family Medicine 01/31/21 documented as of this encounter
--- OUTSIDE RECORDS SUMMARY | 2022-05-23 11:29 | XMS_ITS | Encounter Summary ---
:1935 Author Organization [facility] Address [address] [place] [address] Care Team Providers Name Role Phone Elsewhere, Pcp Primary Care Provider Unavailable Reason for Referral Outpatient (Routine) - Closed Specialty Diagnoses / Procedures Referred By Contact Refer red To Contact Otorhinolaryngology Diagnoses [facility] Candido Sage M.[facility]. [address] [place] [phone] Referral ID Status Reason Start Date Expiration Date Visits V isits Requested Authorized [id number] Closed Specialty 03/19/2021 03/19/2022 1 1 Services Required Encounter Details Date Type Department Care Team Description 03/19/2021 Orders Only Department of Neurology [place] , [place] (Primary Dx) in [facility] Candido Sage M.D. [address] [facility] [address] [place] [phone] Social History Tobacco Use Types Packs/Day Years [...] Primary documented in this encounter Care Teams Superintendent Tests Relationship Specialty Start Date End Date Elsewhere, Pcp PCP - General Family Medicine 01/31/21 documented as of this encounter
--- OUTSIDE RECORDS SUMMARY | 2022-05-23 11:29 | XMS_ITS | Encounter Summary ---
:1935 Author Organization [facility] Address [address] [place] [address] Care Team Providers Name Role Phone Elsewhere, Pcp Primary Care Provider Unavailable Reason for Referral Outpatient (Routine) - Closed Specialty Diagnoses / Procedures Referred By Contact Refer red To Contact Diagnoses Screening Mammogram Breast Cancer Suze Tolentino APRN, [facility] Region Procedures BI Breast Screening Bilateral C.N.P., R.N. [address] 191 48 Referral ID Status Reason Start Date Expiration Date Visits Requ ested Visits Authorized [id number] Closed 11/05/2020 11/05/2021 1 1 RONMENTAL HEALTH SAFETY ENGINEER Reason for Visit Outpatient (Routine) - Closed Specialty Diagnoses / Procedures Referred By Contact Refer red To Contact Diagnoses Screening Mammogram Breast Cancer Suze Tolentino APRN, [facility] Region Procedures BI Breast Screening Bilateral C.N.P., R.N. [address] 785 49 Referral ID Status Reason Start Date Expiration Date Visits Requ ested Visits Authorized [id number] Closed 11/05/2020 11/05/2021 1 1 Encounter Details Date Type Department Care Team Description 11/13/2020 Hospital Encounter Department of Suze Tolentino Screeni ng Mammogram Radiology in [place] NAM.N.P., Breast Cancer [place], [place] R.N. [address] [place], [place] Dr [place] [address] VAUGHN KELLY [address] [phone] Social History Tobacco Use Types Packs/Day Years [...] Results for this SCREENING (most inpatients PM ENVIRONMENTAL HEALTH SAFETY ENGINEER Mammogram Breast procedu re are in BILATERAL and all Cancer the results outpatients) section. documented in this encounter Results BI Breast Screening Bilateral (11/13/2020 1:36 PM ENVIRONMENTAL HEALTH SAFETY ENGINEER) Anatomical Region Laterality Modality Breast, Breast Imaging RST LOS, Breast Imaging ARZ LOS, [place] [address] Bilateral Mammography Imaging FLA LOS Specimen (Source) Anatomical Collection Method Collection Time Re ceived Time Location / / Volume Laterality 11/13/2020 2:08 PM ENVIRONMENTAL HEALTH SAFETY ENGINEER Impressions 11/13/2020 2:08 PM ENVIRONMENTAL HEALTH SAFETY ENGINEER Negative. RECOMMENDATION: ??Annual Screening Mammo gram ASSESSMENT: ??BI-RADS: 1: Negative. Narrative 11/13/2020 2:08 PM ENVIRONMENTAL HEALTH SAFETY ENGINEER EXAM: ??BI BREAST SCREENING BILATERAL Current study was evaluated with a asgoodasnew electronics GmbHu ter Aided Detection (CAD) system. INDICATION: ??Screening [...] BILATERAL Current study was evaluated with a asgoodasnew electronics GmbHu ter Aided Detection (CAD) system. INDICATION: Screening [...] Cancer documented in this encounter Care Teams Hide Curer Relationship Specialty Start Date End Date Elsewhere, Pcp PCP - General Family Medicine 08/26/17 01/30/21 documented as of this encounter
--- OUTSIDE RECORDS SUMMARY | 2022-05-23 11:30 | XMS_ITS | Encounter Summary ---
:1935 Author Organization [facility] Address [address] [place] [address] Care Team Providers Name Role Phone Elsewhere, Pcp Primary Care Provider Unavailable Encounter Details Date Type Department Care Team Description 11/06/2020 Community Orders [facility] HakSuze, Neuropa thy Tibial [facility] LINSEED OIL REFINER, C.N.P., Right (Otilia elma Dx) [facility] R.N [address] [place] [address] Dr RENTERIA [phone] [place] [address] Social History Tobacco Use Types [...] documented as of this encounter Care Teams Carbide Die Maker Relationship Specialty Start Date End Date Elsewhere, Pcp PCP - General Family Medicine 01/31/21 documented as of this encounter
--- OUTSIDE RECORDS SUMMARY | 2022-05-23 11:30 | XMS_ITS | Encounter Summary ---
:[address] [facility] Address [address] [place] [address] Care Team Providers Name Role Phone Elsewhere, Pcp Primary Care Provider Unavailable Reason for Visit Physical Therapy (Routine) - Canceled Specialty Diagnoses / Procedures Referred By Contact Refer red To Contact Diagnoses Vertigo Benign Paroxysmal Positional Bilateral Con Rodriguez M.D. [facility] Procedures PT Ongoing treatment [address] [place] [phone] Referral ID Status Reason Start Date Expiration Date Visits V isits Requested Authorized [id number] Canceled 04/18/2020 04/18/2021 99 99 Encounter Details Date Type Department Care Team Description 04/19/2020 Clinical Support Department of Con Rodriguez M.D. [address] [phone] Vertigo Benign Rehabilitation Faviola Guerrero, P.T. [address] [phone] Paroxysmal Services in [place], [place] Bilateral [address] [phone] Social History Tobacco Use Types Packs/Day Years [...] OBJECTIVE Pain: no complaint of pain Hallpike [place] test revealed nystagmus for the right anterior [...] Guerrero P.T. Department of Rehabilitation Services in [address] [address] Dept: [phone] documented in this encounter Plan of Treatment Not on filedocumented as of this encounter Visit Diagnoses Diagnosis Vertigo Benign Paroxysmal Positional Jeff ateral documented in this encounter Care Teams Semi Automatic Sew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 Relationship Specialty Start Date End Date Elsewhere, Pcp PCP - General Family Medicine 08/26/17 01/30/21 documented as of this encounter
--- OUTSIDE RECORDS SUMMARY | 2022-05-23 11:30 | XMS_ITS | Encounter Summary ---
:1935 Author Organization [facility] Address [address] [place] [address] Care Team Providers Name Role Phone Elsewhere, Pcp Primary Care Provider Unavailable Encounter Details Date Type Department Care Team Description 12/14/2017 Hospital Encounter Department of [place] Screen ing Mammogram Radiology in [facility] Average Risk Patient [address], [address] [place] [address] Social History Tobacco Use Types Packs/Day [...] Patient documented in this encounter Care Teams Supervisor Malt [place] Relationship Specialty Start Date End Date Elsewhere, Pcp PCP - General Family Medicine 08/26/17 01/30/21 documented as of this encounter
--- OUTSIDE RECORDS SUMMARY | 2022-05-23 11:30 | XMS_ITS | Encounter Summary ---
:1935 Author Organization [facility] Address [address] [place] [address] Care Team Providers Name Role Phone Elsewhere, Pcp Primary Care Provider Unavailable Reason for Visit Reason Comments Dizziness Encounter Details Date Type Department Care Team Description 05/12/2019 - Emergency [facility] Chey Zamorano III, M.D. [address] [phone] Vertigo (Primary Dx) 05/13/2019 [facility]., M[facility]S. [address] [place] [address] [facility] [address] [place] [phone] Second Floor Con Rodriguez M.D. [address] [phone] [phone] Social History Tobacco Use Types [...] sent through Care Everywhere. Benign Positional Vertigo (Taiwanese)documented in this encounter Medications at Time of [...] min Functional G-code Worksheet Faviola Guerrero P.T. [facility], [facility], Second Floor [address] [place] [phone] Dept: [phone] documented in this encounter H&P Notes Con [...] file Gets together: Not on file Attends church service: Not on file Active member of [...] Who was present during the interview?: Patient Director It Project Services Used: No Patient Information Primary Caregiver: Self Legal Information Legal Decision Maker: Self Caregiver Information The patient is . They have three sons. One son lives in the community and two of them live in the cities. Services Requested None. OBJECTIVE Functional Status (ADLs) Behavior: Oriented Communication: Can write, Talks, Understands speaking, Understands Taiwanese Environmental Supports Home Environment: House Anticipated Needs/Assistive [...] arranged?: No ASSESSMENT / PLAN Assessment This Equine Dentist visited with the patient. She was lying [...] . Signed by: Rick Dykes 05/13/2019 Faviola Guerrero P.T. - 05/12/2019 3:07 PM CDT Consults [...] Patient Functional G-code Worksheet Faviola Guerrero P.T. [facility], [facility], Second Floor [address] [place] [phone] Dept: [phone] documented in this encounter Nursing Notes Corrie [...] M.D. LAB BLOOD ADD-ON Performing Organization Address City/State/[facility] Code Phon e Number [facility]- [address] [place] [address] LAB (ABNORMAL) Comprehensive Metabolic Panel (05/12/2019 7:08 [...] PM CDT eGFR-Black/Afric 83 >=60 05/12/2019 an Egyptian mL/min/BSA 7:31 PM CDT Comment: ----ADDITIONAL INFORMATION---- [...] Organization Address City/State/ZIP Code Phon e Number [facility]- [address] [place] [id number] [place] [facility] (ABNORMAL) CBC with Differential (05/12/2019 7:08 PM CDT) [facility] Method Time Signature Hemoglobin 13.9 11.6 [...] M.D. LAB BLOOD ADD-ON Performing Organization Address [facility]/State/[facility] e Number [facility]- [address] [place] [address] [place] [facility] documented in this encounter Visit Diagnoses [...] 1744 documented in this encounter Care Teams Claims Supervisor Relationship Specialty Start Date End Date Elsewhere, Pcp PCP - General Family Medicine 08/26/17 01/30/21 documented as of this encounter
--- OUTSIDE RECORDS SUMMARY | 2022-05-23 11:30 | XMS_ITS | Encounter Summary ---
:1935 Author Organization [facility] Address [address] [place] [address] Care Team Providers Name Role Phone Elsewhere, Pcp Primary Care Provider Unavailable Encounter Details Date Type Department Care Team Description 10/08/2020 Clinical Communication Department of Kerri Jordan Otorhinolaryngology in [place], [place] [address] [place] [phone] [facility] [phone] [place] [address] Social History Tobacco Use Types Packs/Day Years [...] was offered to see primary care in [place] as they would be able to see [...] states she was seen by her PCPdebbie Hull for same pain Is patient experiencing other symptoms: no The following references were used: nursing clinical judgement Education provided: patient/caller able to teach back Disposition/Recommendation: as above Caller agreeable to plan of care: yes The following individuals participated in today???s interaction: patient Linen Checker used: no Additional concerns addressed: none PAN OPERATOR documented in this encounter Plan of Treatment Not on filedocumented as of this encounter Visit Diagnoses Not on filedocumented in this encounter Care Teams Fiberglass Finisher Relationship Specialty Start Date End Date Elsewhere, Pcp PCP - General Family Medicine 08/26/17 01/30/21 documented as of this encounter
--- OUTSIDE RECORDS SUMMARY | 2022-05-23 11:30 | XMS_ITS | Encounter Summary ---
:1935 Author Organization [facility] Address [address] [place] [address] Care Team Providers Name Role Phone Elsewhere, Pcp Primary Care Provider Unavailable Encounter Details Date Type Department Care Team Description 08/10/2018 Nurse Only Department of [facility] Antwan Rene M.D. [address] [place] [phone] [facility] Cielo Triplett, R.N. [address] [place] [phone] Clinic, in [address] [phone] Social History Tobacco Use [...] Lucia Gamino to give first dose today. ER BUYER documented in this encounter Plan of Treatment Not on filedocumented as of this encounter Visit Diagnoses Diagnosis Immunization Only documented in this encounter Care Teams Technical Sales Support Manager Relationship Specialty Start Date End Date Elsewhere, Pcp PCP - General Family Medicine 08/26/17 01/30/21 documented as of this encounter
--- OUTSIDE RECORDS SUMMARY | 2022-05-23 11:30 | XMS_ITS | Encounter Summary ---
:1935 Author Organization [facility] Address [address] [place] [address] Care Team Providers Name Role Phone Unavailable Primary Care Provider Unavailable Encounter Details Date Type Department Care Team Description 08/24/2017 Abstract Department of Family Medicine, Provider, [facility], in [place], [place] [address], [place] [address] [facility] [phone] Social History Tobacco Use Types Packs/Day Years Used Date Smoking Tobacco: Never Sex Assigned at Date Recorded Not on file documented as of this encounter Plan of Treatment Not on filedocumented as of this encounter Visit Diagnoses Not on filedocumented in this encounter
--- OUTSIDE RECORDS SUMMARY | 2022-05-23 11:30 | XMS_ITS | Encounter Summary ---
:1935 Author Organization [facility] Address [address] [place] [address] Care Team Providers Name Role Phone Elsewhere, Pcp Primary Care Provider Unavailable Encounter Details Date Type Department Care Team Description 05/13/2019 - Hospital Encounter [facility] Con Rodriguez Benign Paroxysmal Positional Bilateral (Primary Dx); 05/14/2019 Prasanth Sher M.D. Arthritis Rheumatoid (HCC); [place] [address] Vertigo Second Floor [address] [address] [place], [place] [phone] (Work) [phone] Social History Tobacco Use Types Packs/Day Years [...] documented in this encounter Discharge Summaries Con Rodrgiuez M.D. - 05/14/2019 11:54 AM CDT INPATIENT [...] visit with your primary care provider at [facility] ([phone]). Also call [facility] ([phone]) to schedule a physical therapy appointment. AttachmentsThe following attachments cannot be sent through Care Everywhere. Dizziness (Malian)Benign Paroxysmal Positional Vertigo (BPPV) (Malian) Exercises for Horizontal Canal Benign Paroxysmal Positional Vertigo (BPPV) (Malian)Exercises to Help With Dizziness (Malian)documented in this encounter Medications at Time of [...] file Gets together: Not on file Attends gnosticist service: Not on file Active member of [...] to session. Reported her symptoms were improving. [place] tired today and off. Vitals in recliner: [...] min Functional G-code Worksheet Antonia Tillman P.T. [facility], [facility], Second Floor [address] [place] [phone] Dept: [phone] documented in this encounter Nursing Notes Corrie [...] CBC with Differential (05/14/2019 6:56 AM CDT) [facility] gist Method Time Signature Hemoglobin 13.0 11.6 [...] Organization Address City/State/ZIP Code Phon e Number [facility]- [address] [place] [address] [place] [address] [place] [facility] (ABNORMAL) BMP (Basic Metabolic Panel) (05/14/2019 [...] >=60 05/14/2019 Black/ mL/min/BSA 7:55 AM CDT Icelandic Comment: ----ADDITIONAL INFORMATION---- Estimated GFR calculated using [...] Organization Address City/State/ZIP Code Phon e Number [facility]- [address] [facility] [address] [place] [address] [facility] documented in this encounter Visit Diagnoses [...] mg of calcium, oral, Every 2 hour CO N, heartburn, indigestion, Starting on Thu05/13/19 at [...] mg of calcium, oral, Every 2 hour CO N, heartburn, indigestion, Starting on Thu05/13/19 at [...] injection documented in this encounter Care Teams Estimator Jewelry Relationship Specialty Start Date End Date Elsewhere, Pcp PCP - General Family Medicine 08/26/17 01/30/21 documented as of this encounter
--- OUTSIDE RECORDS SUMMARY | 2022-05-23 11:30 | XMS_ITS | Encounter Summary ---
:1935 Author Organization [facility] Address [address] [place] [address] Care Team Providers Name Role Phone Elsewhere, Pcp Primary Care Provider Unavailable Reason for Visit Reason Comments Nurse Visit Appointment Request (Routine) - Closed Specialty Diagnoses / Procedures Referred By Contact Refer red To Contact Family Medicine Referral ID Status Reason Start Date Expiration Date Visits Requ ested Visits Authorized [id number] Closed 07/28/2018 07/28/2019 1 Encounter Details Date Type Department Care Team Description 08/11/2018 Nurse Only Department of [facility] Antwan Rene M.D. [address] [place] [phone] Nurse Visit Medicine, [place] Leah Batista L.P.N. [address] [place] [phone] Clinic, in [address] [phone] Social History Tobacco Use Types Packs/Day Years Used Date Smoking Tobacco: Never Sex Assigned at Date Recorded Not on file documented as of this encounter Plan of Treatment Not on filedocumented as of this encounter Visit Diagnoses Not on filedocumented in this encounter Care Teams Deputy Court Relationship Specialty Start Date End Date Elsewhere, Pcp PCP - General Family Medicine 08/26/17 01/30/21 documented as of this encounter
--- OUTSIDE RECORDS SUMMARY | 2022-05-23 11:30 | XMS_ITS | Encounter Summary ---
:1935 Author Organization [facility] Address [address] [place] [address] Care Team Providers Name Role Phone Elsewhere, Pcp Primary Care Provider Unavailable Reason for Visit Physical Therapy (Routine) - Canceled Specialty Diagnoses / Procedures Referred By Contact Refer red To Contact Diagnoses Vertigo Benign Paroxysmal Positional Bilateral Con Rodriguez M.D. [facility] Procedures PT Ongoing treatment [address] [place] [phone] Referral ID Status Reason Start Date Expiration Date Visits V isits Requested Authorized [id number] Canceled 04/18/2020 04/18/2021 99 99 Encounter Details Date Type Department Care Team Description 04/27/2020 Clinical Support Department of Con Rodriguez M.D. [address] [phone] Vertigo Benign Rehabilitation Faviola Guerrero, P.T. [address] [phone] Paroxysmal Services in [place], [place] Bilateral [address] [phone] Social History Tobacco Use Types Packs/Day Years [...] Guerrero P.T. Department of Rehabilitation Services in [address] [address] Dept: [phone] documented in this encounter Plan of Treatment Not on filedocumented as of this encounter Visit Diagnoses Diagnosis Vertigo Benign Paroxysmal Positional Jeff ateral documented in this encounter Care Teams Glue Jointer Feeder Relationship Specialty Start Date End Date Elsewhere, Pcp PCP - General Family Medicine 08/26/17 01/30/21 documented as of this encounter
--- OUTSIDE RECORDS SUMMARY | 2022-05-23 11:30 | XMS_ITS | Encounter Summary ---
:1935 Author Organization [facility] Address [address] [place] [address] Care Team Providers Name Role Phone Elsewhere, Pcp Primary Care Provider Unavailable Encounter Details Date Type Department Care Team Description 10/16/2020 Orders Only RST PCP [facility] Rosa Reid M.D. [address] [place] [phone] (Wo rk) Social History Tobacco [...] on filedocumented in this encounter Care Teams Cooling Tower Operator Relationship Specialty Start Date End Date Elsewhere, Pcp PCP - General Family Medicine 08/26/17 01/30/21 documented as of this encounter
--- OUTSIDE RECORDS SUMMARY | 2022-05-23 11:30 | XMS_ITS | Encounter Summary ---
:1935 Author Organization [facility] Address [address] [place] [address] Care Team Providers Name Role Phone Elsewhere, Pcp Primary Care Provider Unavailable Reason for Visit Physical Therapy (Routine) - Canceled Specialty Diagnoses / Procedures Referred By Contact Refer red To Contact Diagnoses Vertigo Benign Paroxysmal Positional Bilateral Con Rodriguez M.D. [facility] Procedures PT Ongoing treatment [address] [place] [phone] Referral ID Status Reason Start Date Expiration Date Visits V isits Requested Authorized [id number] Canceled 04/18/2020 04/18/2021 99 99 Encounter Details Date Type Department Care Team Description 04/18/2020 Clinical Support Department of Con Rodriguez M.D. [address] [phone] Vertigo Benign Rehabilitation Faviola Guerrero, P.T. [address] [phone] Paroxysmal Services in [place], [place] Bilateral [address] [phone] Social History Tobacco Use Types Packs/Day Years [...] AND B / Product Type: Medicare / [place] Heels Visit Count: 2 PERTINENT MEDICAL / SURGICAL [...] Guerrero P.T. Department of Rehabilitation Services in [address] [address] Dept: [phone] documented in this encounter Plan of Treatment Not on filedocumented as of this encounter Visit Diagnoses Diagnosis Vertigo Benign Paroxysmal Positional Jeff ateral documented in this encounter Care Teams Mold Stamper And Repairer Relationship Specialty Start Date End Date Elsewhere, Pcp PCP - General Family Medicine 08/26/17 01/30/21 documented as of this encounter
--- OUTSIDE RECORDS SUMMARY | 2022-05-23 11:30 | XMS_ITS | Encounter Summary ---
:1935 Author Organization [facility] Address [address] [place] [address] Care Team Providers Name Role Phone Elsewhere, Pcp Primary Care Provider Unavailable Reason for Visit Reason Comments Med Refill Encounter Details Date Type Department Care Team Description 05/28/2020 Refill Division of Endocrinology in Arin Sandoval M.D., Med Refill [place], [place] Ph.D. [address] [place] [address] [place] [phone] [place] [address] [phone] (Wo rk) Social History Tobacco Use Types [...] on filedocumented in this encounter Care Teams Lead Systems Architect Relationship Specialty Start Date End Date Elsewhere, Pcp PCP - General Family Medicine 08/26/17 01/30/21 documented as of this encounter
--- OUTSIDE RECORDS SUMMARY | 2022-05-23 11:30 | XMS_ITS | Encounter Summary ---
:1935 Author Organization [facility] Address [address] [place] [address] Care Team Providers Name Role Phone Elsewhere, Pcp Primary Care Provider Unavailable Reason for Referral Outpatient (Routine) - Closed Specialty Diagnoses / Procedures Referred By Contact Refer red To Contact Endocrinology Amadou Sandoval M.D., Sis Rodriguez Ph.D. [address] [place] [address] Referral ID Status Reason Start Date Expiration Date Visits Requ ested Visits Authorized [id number] Closed 07/14/2019 07/13/2020 1 1 Reason for Visit Outpatient (Routine) - Closed Specialty Diagnoses / Procedures Referred By Contact Refer red To Contact Endocrinology Diagnoses Osteoporosis Without Pathological Fracture Antonia Alrdich [place] bharati C.N.PDann [address] [place], [place] [address] Referral ID Status Reason Start Date Expiration Date Visits Requ ested Visits Authorized [id number] Closed 06/30/2019 06/29/2020 1 1 Encounter Details Date Type Department Care Team Description 07/14/2019 Comprehensive Visit Division of Amadou Sandoval Osteop orosis (Primary Dx); Endocrinology joseph Garcia M.D., Ph.D. Osteoporosis Without Pathological Fractu [place], [place] [address] [facility] [address] [place] [phone] Social History Tobacco Use Types Packs/Day Years [...] CDT documented in this encounter Consult Notes Amadou Sandoval M.D., Ph.D. - 07/14/2019 10:00 AM [...] with walking and being busy at her yarsani. She has no structured exercise routine PERTINENT [...] re documented in this encounter Care Teams Security Controls Assessor Relationship Specialty Start Date End Date Elsewhere, Pcp PCP - General Family Medicine 08/26/17 01/30/21 documented as of this encounter
--- OUTSIDE RECORDS SUMMARY | 2022-05-23 11:30 | XMS_ITS | Encounter Summary ---
:1935 [facility] Address [address] [place] [address] Care Team Providers Name Role Phone Unavailable Primary Care Provider Unavailable Encounter Details Date Type Department Care Team Description 04/21/2017 - Hospital Encounter HX [facility] [place], 06/03/2017 EARLINE Huff M.D. [address] [place] [phone] Social History Tobacco Use Types Packs/Day Years Used Date Smoking Tobacco: Never Sex Assigned at Date Recorded Not on file documented as of this encounter Discharge Summaries Bianca Villalobos P.T. - 06/04/2017 10:23 AM CDT Discharge summary: Patient was evaluated positional vertigo x2 treatment sessions. Patient's plan of care included EVP GENERAL COUNSEL maneuvers. Patient will be discharged from physical therapy was symptom resolution. Patient has all contact information if symptoms should reoccur. Electronically Signed By: BIANCA VILLALOBOS On: 06/04/2017 10:25 AM Source: [facility] POWERCHART Document Id: [id number] documented in this encounter Medications at Time [...] also describes lightheadedness. Today we performed [place]pike [place] assessment to reassess for positional vertigo. Patient did test positive with nystagmus with right posterior canal. Today we performedright posterior canal maneuvers x2. Patient was symptomatic during maneuvers. Plan will be to have patient contact therapist if she continues to have symptoms tomorrow. Total treatment time was 18 minutes. Electronically Signed By: BIANCA VILLALOBOS On: 04/22/2017 01:21 PM Source: [facility] POWERCHART Document Id: [id number] documented in this encounter H&P Notes Bianca Villalobos P.T. - 04/21/2017 12:49 PM CDT Initial evaluation: Patient presents to physical therapy for positional vertigo. Patient has had multiple episodes of positional vertigo in the past with successful treatment with EVP GENERAL COUNSEL maneuvers. Patient reports her symptoms began with [...] of motion within functional limits. Performed Hallpike [place] testing was tested positive for rightposterior canal [...] 3 weeks. Physical therapy plan of care EVP GENERAL COUNSEL maneuvers. Patient was evaluated for positional vertigo [...] BIANCA VILLALOBOS On: 04/21/2017 12:59 PM Source: [facility] Document Id: [id number] documented in this encounter Miscellaneous Notes Miscellaneous - Conversion, Historical Provider Ser - 05/01/2017 3:17 PM CDT Coding Summary-Paper Based CODING DATE: 05/01/2017 FINAL [facility] STATUS: Still Patient/Expected to Rtn Oupt [facility] PAYOR: Medicare ADMIT DX: REASON FOR VISIT [...] CCS Date Saved: 05/01/2017 03:17 pm Source: [employer] Document Id: [id number] documented in this encounter Plan of Treatment Not on filedocumented as of this encounter Visit Diagnoses Not on filedocumented in this encounter
--- OUTSIDE RECORDS SUMMARY | 2022-05-23 11:30 | XMS_ITS | Encounter Summary ---
:1935 Author Organization [facility] Address [address] [place] [address] Care Team Providers Name Role Phone Elsewhere, Pcp Primary Care Provider Unavailable Encounter Details Date Type Department Care Team Description 08/11/2018 Orders Only Department of Family Kerri Mai AP RN, Medicine, [place] C.N.P., D .N.P. [facility], in [address] [phone] [place] [address] [place], [place] [address] [phone] Social History Tobacco Use Types Packs/Day Years Used Date Smoking Tobacco: Never Sex Assigned at Date Recorded Not on file documented as of this encounter Plan of Treatment Not on filedocumented as of this encounter Visit Diagnoses Not on filedocumented in this encounter Care Teams Buttonhole Machine Operator Relationship Specialty Start Date End Date Elsewhere, Pcp PCP - General Family Medicine 08/26/17 01/30/21 documented as of this encounter
--- OUTSIDE RECORDS SUMMARY | 2022-05-23 11:30 | XMS_ITS | Encounter Summary ---
:1935 Author Organization [facility] Address [address] [place] [address] Care Team Providers Name Role Phone Elsewhere, Pcp Primary Care Provider Unavailable Encounter Details Date Type Department Care Team Description 04/14/2018 Hospital Encounter Department of Antonia Aldrich Pancreas Laboratory Medicine M, C.N.P. ([facility]) in [place], [address] [place], [place] [address] [facility] [address] [place], [place] [phone] (Work) [phone] Social History Tobacco Use Types Packs/Day Years [...] by mouth 2 0 10/18/2015 05/14/2019 hedrine (IMNG-D 12 (two) times a day. HOUR) 60-120 [...] Res ults for this EGFR, S/P CDT ([facility]) procedure are i n the results section. documented in this encounter Results (ABNORMAL) Creatinine with Estimated GFR (04/14/2018 8:15 AM CDT) P athologist Signature Creatinine 0.95 0.59 - 04/14/2018 [facility] 1.04 mg/dL 8:39 AM [facility] eGFR-Non 56 (L) >=60 04/14/2018 [facility] Black/ mL/min/BSA 8:39 AM [facility] [place] [facility] Comment: ----ADDITIONAL INFORMATION---- Estimated GFR calculated using the 2009 CKD_EPI creatinine equation. eGFR-Black/ 65 >=60 mL/min/BSA 2017 8:39 AM [facility] Comment: ----ADDITIONAL INFORMATION---- Estimated GFR calculated using the 2009 CKD_EPI creatinine equation. Specimen Anatomical Collection Method Collection Time Receive d Time (Source) Location / / Volume Laterality Blood (Blood, 04/14/2018 8:15 AM 04/14/20 8:15 Venous) CDT AM CDT Antonia Aldrich C.N.P. LAB BLOOD ADD-ON Performing Organization Address City/State/ZIP Code Phon e Number [facility] [address] [place] [address] LAB documented in this encounter Visit Diagnoses Diagnosis Lesion Pancreas documented in this encounter Care Teams Trading Floor Operator Relationship Specialty Start Date End Date Elsewhere, Pcp PCP - General Family Medicine 08/26/17 01/30/21 documented as of this encounter
--- OUTSIDE RECORDS SUMMARY | 2022-05-23 11:30 | XMS_ITS | Encounter Summary ---
:1935 Author Organization [facility] Address [address] [place] [address] Care Team Providers Name Role Phone Elsewhere, Pcp Primary Care Provider Unavailable Reason for Referral Outpatient (Routine) - Closed Specialty Diagnoses / Procedures Referred By Contact Refer red To Contact Endocrinology Diagnoses Osteoporosis Without Pathological Fracture Antonia Aldrich [place] bharati C.N.P. [address] [place], [place] [address] Referral ID Status Reason Start Date Expiration Date Visits Requ ested Visits Authorized [id number] Closed 06/30/2019 06/29/2020 1 1 Encounter Details Date Type Department Care Team Description 06/30/[address] [facility] Antonia Aldrich eoporosis Without [facility] Lee, C.N.PDann Pathological [facility] [address] Fracture (Primary [address] [place], [place] Dx) [place] [address] [phone] Social History Tobacco Use Types Packs/Day Years [...] documented as of this encounter Care Teams Landscaping And Groundskeeping Laborer Relationship Specialty Start Date End Date Elsewhere, Pcp PCP - General Family Medicine 01/31/21 documented as of this encounter
--- OUTSIDE RECORDS SUMMARY | 2022-05-23 11:30 | XMS_ITS | Encounter Summary ---
:1935 Author Organization [facility] Address [address] [place] [address] Care Team Providers Name Role Phone Elsewhere, Pcp Primary Care Provider Unavailable Encounter Details Date Type Department Care Team Description 04/09/2018 Hospital Encounter Department of Antonia Aldrich Right [facility] [place] [address] [place] [address] [place], [place] [phone] (Work) [phone] Social History Tobacco Use Types Packs/Day Years [...] [address] documented in this encounter Care Teams Hot Mix Operator Relationship Specialty Start Date End Date Elsewhere, Pcp PCP - General Family Medicine 08/26/17 01/30/21 documented as of this encounter
--- OUTSIDE RECORDS SUMMARY | 2022-05-23 11:30 | XMS_ITS | Encounter Summary ---
:1935 Author Organization [facility] Address [address] [place] [address] Care Team Providers Name Role Phone Elsewhere, Pcp Primary Care Provider Unavailable Encounter Details Date Type Department Care Team Description 05/17/2019 Comprehensive Visit Department of Candido Rodriguez M.D. [address] [place] [phone] Vertigo Benign Paroxysmal Positional Jeff ateral; Rehabilitation Bianca Guerrero, P.T. [address] [place] [phone] Arthritis Rheumatoid (HCC); Services in [address] [address] Social History Tobacco Use Types [...] well. TREATMENT Treatment today consisted of: Performed MOTORCYCLE DELIVERY DRIVER manuevers for the right posterior/left anterior canals [...] Guerrero P.T. Department of Rehabilitation Services in [address] [address] Dept: [phone] documented in this encounter Miscellaneous Notes Addendum Note - Bianca Guerrero P.T. - 05/17/2019 1:00 PM CDT Addended by: BIANCA GUERRERO on: 04/18/2020 10:17 AM Modules accepted: Orders documented in this encounter Plan of Treatment Not on filedocumented as of this encounter Visit Diagnoses Diagnosis Vertigo Benign Paroxysmal Positional Jeff ateral Arthritis Rheumatoid (HCC) Vertigo documented in this encounter Care Teams Communications Supervisor Relationship Specialty Start Date End Date Elsewhere, Pcp PCP - General Family Medicine 08/26/17 01/30/21 documented as of this encounter
--- OUTSIDE RECORDS SUMMARY | 2022-05-23 11:30 | XMS_ITS | Encounter Summary ---
:1935 Author Organization [facility] Address [address] [place] [address] Care Team Providers Name Role Phone Elsewhere, Pcp Primary Care Provider Unavailable Encounter Details Date Type Department Care Team Description 06/27/2019 Hospital Encounter Department of Antonia Aldrich [facility] [address] [address] [place], [place] [phone] (Work) [phone] Social History Tobacco Use Types Packs/Day Years [...] Cancer documented in this encounter Care Teams Collision Repair Technician Relationship Specialty Start Date End Date Elsewhere, Pcp PCP - General Family Medicine 08/26/17 01/30/21 documented as of this encounter
--- OUTSIDE RECORDS SUMMARY | 2022-05-23 11:30 | XMS_ITS | Encounter Summary ---
:1935 Author Organization [facility] Address [address] [place] [address] Care Team Providers Name Role Phone Elsewhere, Pcp Primary Care Provider Unavailable Encounter Details Date Type Department Care Team Description 08/10/2018 Clinical Communication Department of Emilio Ruiz Cannon R, L.P.N. [address] [address] [place], [place] [phone] (Work) [phone] Social History Tobacco Use Types Packs/Day Years Used Date Smoking Tobacco: Never Sex Assigned at Date Recorded Not on file documented as of this encounter Miscellaneous Notes Telephone Encounter - Leah Batista L.P.N. - 08/10/2018 10:53 AM FLOORING MACHINE FEEDER Please see pended Flu shot. RING MACHINE FEEDER documented in this encounter Plan of Treatment Not on filedocumented as of this encounter Visit Diagnoses Not on filedocumented in this encounter Care Teams Application Technical Designer Relationship Specialty Start Date End Date Elsewhere, Pcp PCP - General Family Medicine 08/26/17 01/30/21 documented as of this encounter
--- OUTSIDE RECORDS SUMMARY | 2022-05-23 11:30 | XMS_ITS | Encounter Summary ---
:1935 Author Organization [facility] Address [address] [place] [address] Care Team Providers Name Role Phone Elsewhere, Pcp Primary Care Provider Unavailable Encounter Details Date Type Department Care Team Description 06/27/2019 Hospital Encounter Department of Antonia Aldrich, Osteoporosis Radiology in [address] [phone] Social History Tobacco Use Types Packs/Day Years [...] BMD BONE DENSITY SPINE HIPS COMPARISON: 06/09/2017 Glove Wrapper/Model: Sciona FINDINGS: ?? LUMBAR SPINE The L1 and [...] BMD BONE DENSITY SPINE HIPS COMPARISON: 06/09/2017 Glove Wrapper/Model: Sciona FINDINGS: LUMBAR SPINE The L1 and L3 [...] Osteoporosis documented in this encounter Care Teams Real Estate Clerk Relationship Specialty Start Date End Date Elsewhere, Pcp PCP - General Family Medicine 08/26/17 01/30/21 documented as of this encounter
--- OUTSIDE RECORDS SUMMARY | 2022-05-23 11:30 | XMS_ITS | Encounter Summary ---
:1935 Author Organization [facility] Address [address] [place] [address] Care Team Providers Name Role Phone Elsewhere, Pcp Primary Care Provider Unavailable Encounter Details Date Type Department Care Team Description 08/27/2017 Orders Only Department of Family Kerri Mai AP RN, Medicine, [place] C.N.P., D .N.P. [facility], in [address] [address] [place] [address] [place], [place] [address] [phone] Social History Tobacco Use Types Packs/Day Years Used Date Smoking Tobacco: Never Sex Assigned at Date Recorded Not on file documented as of this encounter Plan of Treatment Not on filedocumented as of this encounter Visit Diagnoses Not on filedocumented in this encounter Care Teams Baler Relationship Specialty Start Date End Date Elsewhere, Pcp PCP - General Family Medicine 08/26/17 01/30/21 documented as of this encounter
--- OUTSIDE RECORDS SUMMARY | 2022-05-23 11:30 | XMS_ITS | Encounter Summary ---
:1935 Author Organization [facility] Address [address] [place] [address] Care Team Providers Name Role Phone Elsewhere, Pcp Primary Care Provider Unavailable Encounter Details Date Type Department Care Team Description 04/14/2018 Hospital Encounter Department of Antonia Aldrich [facility] [place] [place] [address] [place], [place] [phone] Social History Tobacco Use Types Packs/Day [...] [address] documented in this encounter Care Teams Student Records Coordinator Relationship Specialty Start Date End Date Elsewhere, Pcp PCP - General Family Medicine 08/26/17 01/30/21 documented as of this encounter
--- OUTSIDE RECORDS SUMMARY | 2022-05-23 11:30 | XMS_ITS | Encounter Summary ---
:1935 Author Organization [facility] Address [address] [place] [address] Care Team Providers Name Role Phone Elsewhere, Pcp Primary Care Provider Unavailable Encounter Details Date Type Department Care Team Description 08/27/2017 Nurse Only Department of [facility] Cielo Daniels M.D. [address] [place] [phone] [facility]ri Mai APRN, C.N.P., D.N.P. [address] [place] [phone] Clinic, in [address] [phone] Social History Tobacco Use Types Packs/Day Years Used Date Smoking Tobacco: Never Sex Assigned at Date Recorded Not on file documented as of this encounter Plan of Treatment Not on filedocumented as of this encounter Visit Diagnoses Diagnosis Immunization Only - Primary documented in this encounter Care Teams Telephone Service Representative Relationship Specialty Start Date End Date Elsewhere, Pcp PCP - General Family Medicine 08/26/17 01/30/21 documented as of this encounter
--- OUTSIDE RECORDS SUMMARY | 2022-05-23 11:30 | XMS_ITS | Encounter Summary ---
:1935 Author Organization [facility] Address [address] [place] [address] Care Team Providers Name Role Phone Elsewhere, Pcp Primary Care Provider Unavailable Encounter Details Date Type Department Care Team Description 08/10/2018 Clinical Communication [facility] Prasanth Galicia L.P.N. [address] [address] [place], [place] [phone] (Work) [phone] Social History Tobacco Use Types Packs/Day Years Used Date Smoking Tobacco: Never Sex Assigned at Date Recorded Not on file documented as of this encounter Plan of Treatment Not on filedocumented as of this encounter Visit Diagnoses Not on filedocumented in this encounter Care Teams Assembler Mechanical Ordnance Relationship Specialty Start Date End Date Elsewhere, Pcp PCP - General Family Medicine 08/26/17 01/30/21 documented as of this encounter
--- OUTSIDE RECORDS SUMMARY | 2022-05-23 11:30 | XMS_ITS | Encounter Summary ---
:1935 Author Organization [facility] Address [address] [place] [address] Care Team Providers Name Role Phone Elsewhere, Pcp Primary Care Provider Unavailable Reason for Referral Outpatient (Routine) - Closed Specialty Diagnoses / Procedures Referred By Contact Refer red To Contact Diagnoses Elevated Liver Function Test Suze Tolentino APRN, [facility] [place] [facility] Procedures US Abdomen Complete C.N.P., R.N. [address] [address] Referral ID Status Reason Start Date Expiration Date Visits Requ ested Visits Authorized [id number] Closed 11/05/2020 11/05/2021 1 1 ION ASSESSMENT SPECIALIST Reason for Visit Outpatient (Routine) - Closed Specialty Diagnoses / Procedures Referred By Contact Refer red To Contact Diagnoses Elevated Liver Function Test Suze Tolentino APRN, [facility] [place] [facility] Procedures US Abdomen Complete C.N.P., R.N. [address] [address] Referral ID Status Reason Start Date Expiration Date Visits Requ ested Visits Authorized [id number] Closed 11/05/2020 11/05/2021 1 1 Encounter Details Date Type Department Care Team Description 11/13/2020 Hospital Encounter Department of Suze Tolentino Elevate d Liver Radiology in [place] Angy NAM.N.PDann, Matias [facility]an [facility] [address] [place], [place] [address] [place] [address] [place] [address] [phone] Social History Tobacco Use Types Packs/Day Years [...] f or this COMPLETE (most inpatients PM MISSION ASSESSMENT SPECIALIST Function Test procedure are in and all the results outpatients) section. documented in this encounter Results US Abdomen Complete (11/13/2020 1:41 PM MISSION ASSESSMENT SPECIALIST) Anatomical Region Laterality Modality Abdomen, Ultrasound RST LOS, Ultrasound ARZ LOS, Ultrasound FLA N/A Ultrasound LOS Specimen (Source) Anatomical Collection Method Collection Time Re ceived Time Location / / Volume Laterality 11/14/2020 10:06 AM MISSION ASSESSMENT SPECIALIST Impressions 11/14/2020 10:11 AM MISSION ASSESSMENT SPECIALIST 1. There is cholelithiasis and there is sludge in the gallbladder but there is no ultrasound evidence for acute cholecy stitis. 2. Increased hepatic parenchymal echogen icity consistent with fatty infiltration. 3. The nodule in the uncinate process of the pancreas noted on the prior CT studies is not well visualized sonograph gabino. Narrative 11/14/2020 10:11 AM MISSION ASSESSMENT SPECIALIST EXAM: US ABDOMEN COMPLETE COMPARISON: CT examination [...] Test documented in this encounter Care Teams Supervisor Diagnostic Relationship Specialty Start Date End Date Elsewhere, Pcp PCP - General Family Medicine 08/26/17 01/30/21 documented as of this encounter
--- OUTSIDE RECORDS SUMMARY | 2022-05-23 11:30 | XMS_ITS | Encounter Summary ---
:1935 Author Organization [facility] Address [address] [place] [address] Care Team Providers Name Role Phone Elsewhere, Pcp Primary Care Provider Unavailable Encounter Details Date Type Department Care Team Description 08/26/2017 Nurse Only Department of Family [facility] Cielo victor M.D. [address] [place] [phone] [facility] Stacey Calderon L.P.N. [facility], in [address] [phone] Social History Tobacco Use Types Packs/Day Years Used Date Smoking Tobacco: Never Sex Assigned at Date Recorded Not on file documented as of this encounter Plan of Treatment Not on filedocumented as of this encounter Visit Diagnoses Diagnosis Immunization Only - Primary documented in this encounter Care Teams Collator Relationship Specialty Start Date End Date Elsewhere, Pcp PCP - General Family Medicine 08/26/17 01/30/21 documented as of this encounter
--- OUTSIDE RECORDS SUMMARY | 2022-05-23 11:30 | XMS_ITS | Encounter Summary ---
:1935 Author Organization [facility] Address [address] [place] [address] Care Team Providers Name Role Phone Unavailable Primary Care Provider Unavailable Encounter Details Date Type Department Care Team Description 06/09/2017 Hospital Encounter HX [facility] Wisam Aldrich, C.N.P. [address] [place] [address] (Wo rk) Social History Tobacco [...] Coding Summary-Paper Based CODING DATE: 06/13/2017 FINAL [facility] STATUS: * Discharged to Home or [...] MENDIOLA Date Saved: 06/13/2017 09:13 am [facility] Document Id: [id number] documented in this encounter Plan of Treatment Not on filedocumented as of this encounter Visit Diagnoses Not on filedocumented in this encounter
--- OUTSIDE RECORDS SUMMARY | 2022-05-23 11:31 | XMS_ITS | Encounter Summary ---
:1935 Author Organization [facility] Address [address] [place] [id number] Care Team Providers Name Role Phone Unavailable Primary Care Provider Unavailable Encounter Details Date Type Department Care Team Description 04/06/2016 Hospital Encounter HX [facility] ED Olga Lantigua, P.A.-C. [id number] [place] [phone] (Wo rk) Social History Tobacco Use [...] 04/06/2016 11:42 AM CDT ED Depart Summary [facility] Emergency Department Clinical Discharge Summary PERSON INFORMATION Name KATHRYN LEON Age 81 Years 1935 12:00 AM Sex Female Language Croatian PCP HUNTER SEQUEIRA MD Marital Status Visit Id Visit Reason Nausea; infection in bowel Specialty Enc Type Emergency Med Service Emergency Medicine Referred by Track Group [facility] ED Discharge 04/06/2016 11:41 AM Tracking Id [id number] Checkout 04/06/2016 11:41 AM Checkin 04/06/2016 10:02 AM Acuity 4 -Less Urgent Dispo Type * Discharged to Home or Self Care Arrival 04/06/2016 10:02 AM Reg Status Complete LOS 000 01:39 Address: [address] [place] [phone] Comment: PROVIDER INFORMATION Provider Role Provider Contact Time LINNETTE CLEARY DIVER HELPER Nurse 04/06/16 10:07 NO LANTIGUA PA-C ED Provider 04/06/16 10:20 DIAGNOSIS Nausea NOS Comment: PATIENT EDUCATION INFORMATION Instructions: VOMITING AND DIARRHEA, Nonspecific (Adult) Follow up: Source: [facility] POWERCHART Document Id: [id number] Linnette Cleary R.N. - 04/06/2016 11:42 AM CDT ED Discharge Instructions [place] [id number] Name: KATHRYN LEON Date of : 1935 12:00 AM Visit Date: 04/06/2016 10:02 AM [facility] Number: [id number] Address: [address] [place] [phone] Primary Care Provider: HUNTER SEQUEIRA MD IMPORTANT: in [place] would like to thank you for allowing [...] stop this may not be recommended. Certain whol-mic-gbeqfva medications can help soothe stomach upset. ?? [...] ?? Severe weakness, dizziness or lightheadedness ?? [phone] [facility], [address] [place] [address], [place] [address]. All rights reserved. This information is not [...] if you dont have one. Go to [email or web address] and click on Create Your Account. Then, follow the directions to complete the online form. Youll be asked for your [facility] number which you can find at [...] release) 1 tab(s)Oral two times a day [email or web address] [place] [phone] estradiol topical (Vagifem 10 mcg vaginal tablet) 10 mcg Vaginal 2 times a week Member No [phone] *omeprazole (omeprazole 40 mg oral delayed release capsule) 40 mg Oral two times a day 30-60 min prior to meals / last saw patient 03/30/15, no mention of f/u, but referred patient to Dr. Mosley at [facility] meclizine (meclizine 12.5 mg oral tablet) 1-2 [...] arrange a ride home with a responsible constitution party. CAROLYN Strange MARY CATHERINE , or responsible constitution party have received this information and my [...] arrange a ride home with a responsible constitution party. CAROLYN Strange MARY CATHERINE , or responsible constitution party have received this information and my questions have been answered. I have discussed any challenges I see with this plan with the nurse or physician. Patient Signature or Responsible Republican/Relationship Date Time Provider Signature Date Time Source: [facility] POWERCHART Document Id: [id number] documented in this encounter Medications at Time [...] On: 04/06/2016 11:40 CDT by LINNETTE CLEARY DIVER HELPER Disposition Summary Present in Room During Exam/Procedure : Spouse Mode of Discharge : Ambulatory Transportation : Private vehicle Printed Discharge Instructions Given to Patient : Yes Patient Status at Discharge from ED : Improved LINNETTE CLEARY RN - 04/06/2016 11:40 CDT Source: [employer] Document Id: [id number] CDT!7 Linnette Cleary R.N. - 04/06/2016 11:40 AM CDT ED Pain Assessment ED Pain Assessment Entered On: 04/06/2016 11:40 CDT Performed On: 04/06/2016 11:40 CDT by LINNETTE CLEARY RN Pain Assessment Pain Symptoms : No LINNETTE CLEARY RN - 04/06/2016 11:40 CDT Source: [employer] Document Id: [id number] CDT!3 No Lantigua P.A.-C. - 04/06/2016 11:25 [...] (365.9): Resolved.. Surgical history: Upper gastrointestinal endoscopy ([id number]) on 11/30/2013 at 78 Years. MAMMOGRAM (G0202) on 08/25/2013 at 78 Years. Comments: 10/31/2013 11:24 - SUJATHA MAR LPN [place] Normal may resume in [place]oven Mammogram ([id number]) on 07/15/2012 at 77 Years. Diagnostic colonoscopy ([id number]) on 03/25/2011 at 76 Years. Comments: 03/25/2011 08:49 - SAGRARIO NOLAND MD Sigmoid diverticulosis--not inflamed. Dual-energy X-ray absorptiometry (DXA), bone density study, 1 or more sites; axial skeleton (eg, hips, pelvis, spine).. ([id number]) in the week of 08/14/2010 at 75 Years. Comments: 10/25/2010 09:40 - CARMELO RHODES Hx: [id number] - BONE DEN HIPS/PEL/SP 08/01/2013 19:17 - Contributor source changed to PowerChart. Mammogram ([id number]) on 07/22/2010 at 75 Years. Mammogram ([id number]) on 06/28/2010 at 75 Years. Laminectomy approach to lumbar spine ([id number]) in 2008 at 74 Years. Colonoscopy ([id number]) on 02/01/2009 at 73 Years. Extracapsular cataract removal with insertion of intraocular lens prosthesis (1 stage procedure), manual or mechanical technique (eg, irrigation and aspiration or phacoemulsification) ([id number]) on 02/26/2007 at 72 Years. Comments: 10/25/2010 20:26 - PATTI ALMENDAREZ ROOFING TILE SORTER left HC COLONOSCOPY W SNARE REMOVAL TUMOR/POLYP/LESION - 12/31/06 on 12/31/2006 at 71 Years. HC ANTER COLPORRHAPHY,BLAD/VAGINA - 03/22/01 - ANTERIOR POSTERIOR REPAIR on 03/22/2001 at 66 Years. HC FLEX SIGMOIDOSCOPY W/WO JAMES SPEC BY BRUSH/WASH - on 06/14/1999 at 64 Years. Repair of cystocele ([id number]) in 1994 at 60 Years. Reduction mammaplasty () on 02/26/1982 at 47 Years. Hysterectomy ([id number]) on 11/04/1966 at 31 Years. Comments: 03/25/2011 08:51 - SAGRARIO NOLAND MD Vaginal Hemorrhoidectomy, internal and external, single column/group; ([id number]) on 02/26/1959 at 24 Years. C GLAUCOMA [...] Absolute 2.26 10(9)/L Lymph Absolute 1.29 x10(9)/L [place] Absolute 0.56 x10(9)/L Eos Absolute 0.12 x10(9)/L [...] (Discharge, Medical) Plan Condition: Improved. Prescriptions: Prescription Staffing Recruiter Patient Care: Discharge ED Patient (Order Processing): [...] GODOY MD On: 04/06/2016 01:06 PM Source: [facility] POWERCHART Document Id: [id number]} Linnette Cleary R.N. - 04/06/2016 10:27 AM [...] Medical ; Code: 790.6 ; Contributor System: [employer] ; Last Updated: 11/17/2014 12:51 TRAFFIC OBSERVER ; Life CycleStatus: Active ; Responsible Provider: [...] Nursing ; Code: 714.0 ; Contributor System: cottonTracksChart ; Last Updated: 10/25/2010 20:18 TRAFFIC OBSERVER ; Life Cycle Date: 10/25/2010 ; Life Cycle Status: Active ; Responsible Provider: PATTI ALMENDAREZ LPN; Vocabulary: ICD-9-CM Atrophic vaginitis (ICD-9-CM :627.3 ) Name of Problem: Atrophic vaginitis ; Onset Date: 07/27/2012 ;Recorder: ALBANIA VARMA CNP, DNP; Confirmation: Confirmed ; Classification: Medical ; Code: 627.3 ;Last Updated: 07/27/2012 11:32 TRAFFIC OBSERVER ; Life Cycle Status: Active ; Responsible Provider: ALBANIA VARMA CNP, DNP; Vocabulary: ICD-9-CM Bursitis Hip/Trochanertic (ICD-9-CM :726.5 ) Name of Problem: Bursitis Hip/Trochanertic ; Onset Date: 10/20/2011 ; Recorder: ALBANIA VARMA CNP, DNP; Confirmation: Confirmed ; Classification: Medical ;Code: 726.5 ; Last Updated: 10/20/2011 9:54 TRAFFIC OBSERVER ; Life Cycle Status: Active ; Responsible [...] Classification: Nursing ; Code: 579.0 ; ContributorSystem: cottonTracksChart ; Last Updated: 10/25/2010 20:20 TRAFFIC OBSERVER ; Life Cycle Date: 10/25/2010 ; Life [...] Medical ; Code: J38.3 ; Contributor System: [employer]TracksChart ; Last Updated: 07/10/2015 10:30 CDT ; Life Cycle Status: Active ; Responsible Provider: ALBANIA VARMA CNP, DNP; Vocabulary: ICD-10-CM Diverticulitis of large intestine (ICD-9-CM :562.11 ) Name of Problem: Diverticulitis of large intestine ; Onset Date: 10/28/2010 ; Recorder: ALBANIA VARMA CNP, DNP; Confirmation: Confirmed ; Classification: Medical ; Code: 562.11 ; Last Updated: 10/28/2010 16:30 TRAFFIC OBSERVER ; Life Cycle Status: Active ; Resp onsible Provider: ALBANIA VARMA CNP, DNP; Vocabulary: ICD-9-CM Eye disorder (ICD-9-CM :379.8 ) Name of Problem: Eye disorder ; Recorder: TAMMY ACEVES MD; Confirmation: Confirmed ; Classification: UPDATE NEEDED ; Code: 379.8 ; Contributor System: cottonTracksChart ; Last Updated: 11/12/2015 4:13 TRAFFIC OBSERVER ; Life Cycle Date: 01/05/2012 ; Life Cycle Status: Active ; Responsible Provider: TAMMY ACEVES MD; Vocabulary: ICD-9-CM ; Comments: 01/21/2012 9:37 - MATTHEW BORDEN LPN date unknown Fracture of rib (SNOMED CT :05470251 ) Name of Problem: Fracture of rib ; Onset Date: 05/12/2013 ; Recorder: SUJATHA MAR LPN; Confirmation: Confirmed ; Classification: Nursing ; Code: 14355253 ;Contributor System: cottonTracksChart ; Last Updated: 06/07/2013 8:10 CDT ; [...] System: PowerChart ; Last Updated: 11/12/2015 4:13 TRAFFIC OBSERVER ; Life Cycle Date: 10/25/2010 ; Life Cycle Status: Active ; Responsible Provider: PATTI ALMENDAREZ LPN; Vocabulary: ICD-9-CM ; Comments: 12/31/2010 12:11 - PATTI ALMENDAREZ LPN date unknown Glaucoma (SNOMED CT :25520091 ) Name of Problem: Glaucoma ; Recorder: TAMMY ACEVES MD; Confirmation: Confirmed ; Classification: Medical ; Code: 19239464 ; Contributor System: [employer] ; Last Updated: 01/05/2012 18:52 CDT ; [...] Code: 553.3 ; Last Updated: 10/31/2013 11:53 TRAFFIC OBSERVER ; Life Cycle Status: Active ; Responsible Provider: ALBANIA VARMA CNP, DNP; Vocabulary: ICD-9-CM Osteopenia (ICD-9-CM :733.90 ) Name of Problem: Osteopenia ; Onset Date: 02/26/1987 ; Recorder: PATTI ALMENDAREZ LPN; Confirmation: Confirmed ; Classification: Nursing ; Code: 733.90 ; Contributor System: PowerChart ; Last Updated: 10/25/2010 20:19 TRAFFIC OBSERVER ; Life Cycle Date: 10/25/2010 ; Life Cycle Status: Active ; Responsible Provider: PATTI ALMENDAREZ LPN; Vocabulary: ICD-9-CM Diagnoses(Active) Nausea Date: 04/06/2016 ; Diagnosis Type: Reason For Visit ; Confirmation: Complaint of ; Clinical Dx: Nausea ; Classification: Medical ; Clinical Service: Emergency medicine ; Code: PNED ; Probability: 0 ; Diagnosis Code: [id number] Triage Mode of Arrival ED : Private vehicle Track : Medical Languages : Croatian Treatments Prior to Arrival : None Is [...] CLEARY RN - 04/06/2016 10:27 CDT Source: [facility] POWERCHART Document Id: [id number] CDT!46 Linnette Cleary R.N. - 04/06/2016 10:11 [...] Medical ; Code: 790.6 ; Contributor System: [employer] ; Last Updated: 11/17/2014 12:51 TRAFFIC OBSERVER ; Life CycleStatus: Active ; Responsible Provider: ALBANIA VARMA CNP, DNP; Vocabulary: ICD-9-CM Allergic rhinitis, unspecified (ICD-9-CM :477.9 ) Name of Problem: Allergic rhinitis, unspecified ; Onset Date: 1952 ; Recorder: PATTI ALMENDAREZ LPN; Confirmation: Confirmed ; Classification: Nursing ;Code: 477.9 ; Contributor System: [employer] ; Last Updated: 01/21/2011 10:04 CDT ; [...] System: PowerChart ; Last Updated: 10/25/2010 20:18 TRAFFIC OBSERVER ; Life Cycle Date: 10/25/2010 ; Life Cycle Status: Active ; Responsible Provider: PATTI ALMENDAREZ LPN; Vocabulary: ICD-9-CM Atrophic vaginitis (ICD-9-CM :627.3 ) Name of Problem: Atrophic vaginitis ; Onset Date: 07/27/2012 ;Recorder: ALBANIA VARMA CNP, DNP; Confirmation: Confirmed ; Classification: Medical ; Code: 627.3 ;Last Updated: 07/27/2012 11:32 TRAFFIC OBSERVER ; Life Cycle Status: Active ; Responsible Provider: ALBANIA VARMA CNP, DNP; Vocabulary: ICD-9-CM Bursitis Hip/Trochanertic (ICD-9-CM :726.5 ) Name of Problem: Bursitis Hip/Trochanertic ; Onset Date: 10/20/2011 ; Recorder: ALBANIA VARMA CNP, DNP; Confirmation: Confirmed ; Classification: Medical ;Code: 726.5 ; Last Updated: 10/20/2011 9:54 TRAFFIC OBSERVER ; Life Cycle Status: Active ; Responsible Provider: ALBANIA VARMA CNP, DNP; Vocabulary: ICD-9-CM Cataract NOS (ICD-9-CM :366.9 ) Name of Problem: Cataract NOS ; Onset Date: 1991 ; Recorder: PATTI ALMENDAREZ LPN; Confirmation: Confirmed ; Classification: Nursing ; Code: 366.9 ; Contributor System: cottonTracksChart ; Last Updated: 01/21/2011 10:04 CDT ; [...] ContributorSystem: PowerChart ; Last Updated: 10/25/2010 20:20 TRAFFIC OBSERVER ; Life Cycle Date: 10/25/2010 ; Life [...] Medical ; Code: J38.3 ; Contributor System: cottonTracksChart ; Last Updated: 07/10/2015 10:30 CDT ; Life Cycle Status: Active ; Responsible Provider: ALBANIA VARMA CNP, DNP; Vocabulary: ICD-10-CM Diverticulitis of large intestine (ICD-9-CM :562.11 ) Name of Problem: Diverticulitis of large intestine ; Onset Date: 10/28/2010 ; Recorder: ALBANIA VARMA CNP, DNP; Confirmation: Confirmed ; Classification: Medical ; Code: 562.11 ; Last Updated: 10/28/2010 16:30 TRAFFIC OBSERVER ; Life Cycle Status: Active ; Resp onsible Provider: ALBANIA VARMA CNP, DNP; Vocabulary: ICD-9-CM Eye disorder (ICD-9-CM :379.8 ) Name of Problem: Eye disorder ; Recorder: TAMMY ACEVES MD; Confirmation: Confirmed ; Classification: UPDATE NEEDED ; Code: 379.8 ; Contributor System: cottonTracksChart ; Last Updated: 11/12/2015 4:13 TRAFFIC OBSERVER ; Life Cycle Date: 01/05/2012 ; Life Cycle Status: Active ; Responsible Provider: TAMMY ACEVES MD; Vocabulary: ICD-9-CM ; Comments: 01/21/2012 9:37 - MATTHEW BORDEN LPN date unknown Fracture of rib (SNOMED CT :73745501 ) Name of Problem: Fracture of rib ; Onset Date: 05/12/2013 ; Recorder: SUJATHA MAR LPN; Confirmation: Confirmed ; Classification: Nursing ; Code: 42173355 ;Contributor System: PowerChart ; Last Updated: 06/07/2013 [...] System: PowerChart ; Last Updated: 11/12/2015 4:13 TRAFFIC OBSERVER ; Life Cycle Date: 10/25/2010 ; Life Cycle Status: Active ; Responsible Provider: PATTI ALMENDAREZ LPN; Vocabulary: ICD-9-CM ; Comments: 12/31/2010 12:11 - PATTI ALMENDAREZ LPN date unknown Glaucoma (SNOMED CT :96967186 ) Name of Problem: Glaucoma ; Recorder: TAMMY ACEVES MD; Confirmation: Confirmed ; Classification: Medical ; Code: 89599940 ; Contributor System: PowerChart ; Last Updated: [...] Code: 553.3 ; Last Updated: 10/31/2013 11:53 TRAFFIC OBSERVER ; Life Cycle Status: Active ; Responsible Provider: ALBANIA VARMA CNP, DNP; Vocabulary: ICD-9-CM Osteopenia (ICD-9-CM :733.90 ) Name of Problem: Osteopenia ; Onset Date: 02/26/1987 ; Recorder: PATTI ALMENDAREZ LPN; Confirmation: Confirmed ; Classification: Nursing ; Code: 733.90 ; Contributor System: cottonTracksChart ; Last Updated: 10/25/2010 20:19 TRAFFIC OBSERVER ; Life Cycle Date: 10/25/2010 ; Life Cycle Status: Active ; Responsible Provider: PATTI ALMENDAREZ LPN; Vocabulary: ICD-9-CM Diagnoses(Active) Nausea Date: 04/06/2016 ; Diagnosis Type: Reason For Visit ; Confirmation: Complaint of ; Clinical Dx: Nausea ; Classification: Medical ; Clinical Service: Emergency medicine ; Code: PNED ; Probability: 0 ; Diagnosis Code: [id number] Triage Chief Complaint Description : presents with severe nausea. Was diagnosed with diverticulitis at her primary care clinic on Thursday and was started on cipro and flagyl and unable to keep them down Information Given By : Patient Present in Room During Exam/Procedure : Spouse Mode of Arrival ED : Private vehicle Track : Medical Languages : Croatian Patient Informed of Triage Location : Emergency [...] LINNETTE CLEARY RN - 04/06/2016 10:11 CDT CAIM DCP GENERIC CODE Tracking Acuity : 4 -Less Urgent Tracking Group : [facility] ED LINNETTE CLEARY RN - 04/06/2016 10:11 CDT Allergy (As Of: 04/06/2016 10:13:50 CDT) Allergies (Active) Glutens Estimated Onset Date: Unspecified ; Created By: PATTI ALMENDAREZ LPN; Reaction Status: Active; Category: Drug ; Substance: Glutens ; Type: Allergy ; Updated By: PATTI ALMENDAREZ LPN; Reviewed Date: 04/06/2016 10:13 CDT miconazole topical Comments: Comment 1: MICONAZOLE NITRATE ; Created By: Contributor_system, [facility]_HX_ALRG_SYS; Reaction Status: Active ; Category: Drug ; Substance: miconazole topical ; Type: Unknown ;Updated By: Contributor_system, [facility]_HX_ALRG_SYS; Reviewed Date: 04/06/2016 10:13 CDT Nuts Estimated [...] CLEARY RN - 04/06/2016 10:11 CDT Source: [facility] [employer] Document Id: [id number] CDT!44 documented in this encounter Miscellaneous Notes Miscellaneous - Conversion, Historical Provider Ser - 04/06/2016 11:41 AM CDT Coding Summary-Paper Based CODING DATE: 04/18/2016 FINAL [facility] STATUS: * Discharged to Home or [...] CHACON Date Saved: 04/18/2016 06:58 am Source: [facility] POWERCHART Document Id: [id number] Miscellaneous - Linnette Cleary RDannNDann - 04/06/2016 11:40 AM CDT Valuables/Belongings Valuables/Belongings Entered On: 04/06/2016 11:40 CDT Performed On: 04/06/2016 11:40 CDT by LINNETTE CLEARY RN Valuables/Belongings Home Medication Disposition : None brought in with patient LINNETTE CLEARY RN - 04/06/2016 11:40 CDT Source: [facility] [employer] Document Id: [id number] CDT!3 Miscellaneous - Linnette Cleary R.N. - [...] Nursing Notes ED Primary Assessment,04/06/16 10:27,LINNETTE CLEARY DIVER HELPER Pain Assessment,04/06/16 11:40,LINNETTE CLEARY RN [place] Nursing Assessment : Triage and 1-2 nursing assessments [place]x Disposition : Discharge [place] Total Points with Diagnosis Control : 6 [place]x Visit Level : 66781 Level 3 Treatments Prior to Arrival : None LINNETTE CLEARY RN - 04/06/2016 11:40 CDT Source: [facility] POWERCHART Document Id: [id number] CDT!18 documented in this encounter Plan of [...] culture if indicated (04/06/2016 10:50 AM CDT) [facility] Method Time Signature Clarity Clear Clear POWERCHART HXUr Color Yellow Colorless POWERCHART Specific 1.010 POWERCHART [place], POCT, U pH, POCT, Urine 7.5 <5.0 [...] X109L Erythrocytes 4.51 3.90 - 5.03 POWERCHART [id number] Hemoglobin 14.3 12.0 - 15.5 POWERCHART GDL [...] POWERCHART MMOLL HXeGFR (MDRD) >60 >=60 POWERCHART [id number] 2 eGFR Black/ >60 >=60 POWERCHART Nigerian [id number] 2 Bilirubin, Total, S 0.3 0.1 - [...]
--- OUTSIDE RECORDS SUMMARY | 2022-05-23 11:31 | XMS_ITS | Encounter Summary ---
:1935 Author Organization [facility] Address [address] [place] [address] Care Team Providers Name Role Phone Unavailable Primary Care Provider Unavailable Encounter Details Date Type Department Care Team Description 04/10/2017 Hospital Encounter HX [facility] ED Maritza Marie M.D. [address] [place] [address] [phone] (Wo rk) Social History Tobacco [...] 04/10/2017 11:55 AM CDT ED Discharge Instructions [address] [address] Name: KATHRYN LEON Date of : 1935 12:00 AM Visit Date: 04/10/2017 10:33 AM [facility] Number: [id number] Address: [address] [place] [phone] Primary Care Provider: PCP, ELSEWHERE IMPORTANT: [facility] in [place] would like to thank you for allowing [...] diet may be helpful. You may locatean counterintelligence/humint specialist in your area by contacting: ?? [employer] [email or web address] [phone] ?? [employer] [email or web address] Get Prompt Medical Attention if any of the following occur: ?? Worsening of your symptoms ?? Trouble breathing or swallowing ?? Swelling in the mouth or face ?? Chest pain ?? Dizziness, weakness or fainting ?? [id number] [place] [address]. All rights reserved. This information is not [...] if you dont have one. Go to [email or web address] and click on Create Your Account. Then, follow the directions to complete the online form. Youll be asked for your [facility] number which you can find at the [...] release) 1 tab(s)Oral two times a day [employer] [phone] estradiol topical (Vagifem 10 mcg vaginal tablet) 10 mcg Vaginal 2 times a week Member No [id number] meclizine (meclizine 12.5 mg oral tablet) 1-2 [...] a ride home with a responsible libertarian. CAROLYN Strange MARY CATHERINE , or responsible libertarian have received this [...] a ride home with a responsible libertarian. CAROLYN Strange MARY CATHERINE or responsible libertarian have received this information and my questions have been answered. I have discussed any challenges I see with this plan with the nurse or physician. Patient Signature or Responsible Republican/Relationship Date Time Provider Signature Date Time Source: Hitch Radio Document Id: [id number] Faviola Wilkinson R.N. - 04/10/2017 11:55 AM CDT ED Depart Summary [facility] Emergency Department Clinical Discharge Summary PERSON INFORMATION Name KATHRYN LEON Age 82 Years 1935 12:00 AM Sex Female Language [place] Islander PCP PCP, ELSEWHERE Marital Status N [id number] Visit Id Visit Reason Allergic reaction - major; allergic reaction , swollen throat Specialty Enc Type Emergency Med Service Emergency Medicine Referred by Track Group [facility] ED Discharge 04/10/2017 11:55 AM Tracking Id [id number] Checkout 04/10/2017 11:55 AM Checkin 04/10/2017 10:33 AM Acuity 2 -Emergent Dispo Type * Discharged to Home or Self Care Arrival 04/10/2017 10:33 AM Reg Status Complete LOS 000 01:22 Address: [address] [place] [phone] Comment: PROVIDER INFORMATION Provider Role Provider Contact Time ABDI MARIE MD ED Provider 04/10/17 10:35 FAVIOLA WILKINSON MEASUREMENT AND VERIFICATION ENGINEER Nurse 04/10/17 10:52 DIAGNOSIS Anaphylaxis Initial; Swelling Throat Comment: PATIENT EDUCATION INFORMATION Instructions: ANAPHYLAXIS, General Follow up: With: Address: When: ELSEWHERE PCP Within As Needed Source: Hitch [employer] Document Id: [id number] Faviola Wilkinson R.N. - 04/10/2017 11:55 AM CDT ED Disposition Summary ED Disposition Summary Entered On: 04/10/2017 11:55 CDT Performed On: 04/10/2017 11:55 CDT by FAVIOLA WILKINSON MEASUREMENT AND VERIFICATION ENGINEER Disposition Summary Present in Room During Exam/Procedure : Spouse Mode of Discharge : Ambulatory Transportation : Private vehicle Printed Discharge Instructions Given to Patient : Yes Patient Status at Discharge from ED : Improved 30 Minutes Critical Care : No FAVIOLA WILKINSON RN - 04/10/2017 11:55 CDT Source: [employer] Document Id: [id number] CDT!8 documented in this encounter Medications at [...] WILKINSON RN - 04/10/2017 11:55 CDT Source: [employer] Document Id: [id number] CDT!3 Abdi Marie M.D. - 04/10/2017 11:38 [...] (365.9): Resolved.. Surgical history: Upper gastrointestinal endoscopy ([id number]) on 11/30/2013 at 78 Years. MAMMOGRAM ([id number]) on 08/25/2013 at 78 Years. Comments: 10/31/2013 11:24 - SUJATHA MAR LPN [place] Normal may resume in rader letart Mammogram ([id number]) on 07/15/2012 at 77 Years. Diagnostic colonoscopy ([id number]) on 03/25/2011 at 76 Years. Comments: 03/25/2011 08:49 - SAGRARIO NOLAND MD Sigmoid diverticulosis--not inflamed. Dual-energy X-ray absorptiometry (DXA), bone density study, 1 or more sites; axial skeleton (eg, hips, pelvis, spine).. (02520) in the week of 08/14/2010 at 75 Years. Comments: 10/25/2010 09:40 - CARMELO RHODES Hx: [id number] - BONE DEN HIPS/PEL/SP 08/01/2013 19:17 - Contributor source changed to PowerChart. Mammogram ([id number]) on 07/22/2010 at 75 Years. Mammogram ([id number]) on 06/28/2010 at 75 Years. Laminectomy approach to lumbar spine ([id number]) in 2008 at 74 Years. Colonoscopy ([id number]) on 02/01/2009 at 73 Years. Extracapsular cataract removal with insertion of intraocular lens prosthesis (1 stage procedure), manual or mechanical technique (eg, irrigation and aspiration or phacoemulsification) ([id number]) on 02/26/2007 at 72 Years. 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 HC ANTER COLPORRHAPHY,BLAD/VAGINA - 03/22/01 - ANTERIOR POSTERIOR REPAIR on 03/22/2001 at 66 Years. HC FLEX SIGMOIDOSCOPY W/WO JAMES SPEC BY BRUSH/WASH - on 06/14/1999 at 64 Years. Repair of cystocele ([id number]) in 1994 at 60 Years. Reduction mammaplasty () on 02/26/1982 at 47 Years. Hysterectomy ([id number]) on 11/04/1966 at 31 Years. Comments: 03/25/2011 08:51 - SAGRARIO NOLAND MD Vaginal Hemorrhoidectomy, internal and external, single column/group; ([id number]) on 02/26/1959 at 24 Years. C GLAUCOMA [...] Medically cleared, Discharged: to home. Prescriptions: Prescription [facility]: predniSONE 20 mg oral tablet (Prescribe): 40 mg, 2 tab(s), PO, Daily, for 4 day(s), to start on 04/11/17 with food or milk, 8 tab(s), 0 Refill(s), Prescription [facility]: EpiPen 2-Kristin 0.3 mg injectable kit [...] MARIE MD On: 04/10/2017 11:47 AM Source: [facility] POWERCHART Document Id: [id number]} Miguel Kendrick R.N. - 04/10/2017 10:55 AM [...] 10/05/2014 ; Recorder: ALBANIA VARMA APRN, YURI, TURBINE ENGINEER; Confirmation: Confirmed ; Classification: Medical ; Code: 790.6 ; Contributor System: PowerChart ; Last Updated: 11/17/2014 12:51 HEALTH CARE / MEDICAL JOB TITLES ; LifeCycle Status: Active ; Responsible Provider: ALBANIA VARMA APRN, YURI, TURBINE ENGINEER; Vocabulary: ICD-9-CM Allergic rhinitis, unspecified (ICD-9-CM :477.9 [...] System: PowerChart ; Last Updated: 10/25/2010 20:18 HEALTH CARE / MEDICAL JOB TITLES ; Life Cycle Date: 10/25/2010 ; Life Cycle Status: Active ; Responsible Provider: PATTI ALMENDAREZ LPN; Vocabulary: ICD-9-CM Atrophic vaginitis (ICD-9-CM :627.3 ) Name of Problem: Atrophic vaginitis ; Onset Date: 07/27/2012 ;Recorder: ALBANIA VARMA APRN, YURI, TURBINE ENGINEER; Confirmation: Confirmed ; Classification: Medical ; Code: 627.3 ; Last Updated: 07/27/2012 11:32 HEALTH CARE / MEDICAL JOB TITLES ; Life Cycle Status: Active ; Responsible Provider: ALBANIA VARMA APRN, DNP, CNP; Vocabulary: ICD-9-CM Bursitis Hip/Trochanertic (ICD-9-CM :726.5 ) Name of Problem: Bursitis Hip/Trochanertic ; Onset Date: 10/20/2011 ; Recorder: ALBANIA VARMA APRN, DNP, CNP; Confirmation: Confirmed ; Classification: Medical ; Code: 726.5 ; Last Updated: 10/20/2011 9:54 HEALTH CARE / MEDICAL JOB TITLES ; Life Cycle Status: Active ; Responsible Provider: ALBANIA VARMA APRN, DNP, CNP; Vocabulary: ICD-9-CM Cataract NOS (ICD-9-CM :366.9 ) Name of Problem: Cataract NOS ; Onset Date: 1991 ; Recorder: PATTI ALMENDAREZ LPN; Confirmation: Confirmed ; Classification: Nursing ; Code: 366.9 ; Contributor System: Boatbound ; Last Updated: 01/21/2011 10:04 CDT ; Life Cycle Date: 10/25/2010 ; Life Cycle Status: Active ; Responsible Provider: PATTI ALMENDAREZ LPN; Vocabulary: ICD-9-CM ; Comments: 12/31/2010 12:11 - PATTI ALMENDAREZ LPN date unknown Celiac Disease (ICD-9-CM :579.0 ) Name of Problem: Celiac Disease ; Onset Date: 02/26/2007 ; Recorder: PATTI ALMENDAREZ LPN; Confirmation: Confirmed ; Classification: Nursing ; Code: 579.0 ; ContributorSystem: Boatbound ; Last Updated: 10/25/2010 20:20 HEALTH CARE / MEDICAL JOB TITLES ; Life Cycle Date: 10/25/2010 ; Life [...] Code: 562.11 ; Last Updated: 10/28/2010 16:30 HEALTH CARE / MEDICAL JOB TITLES ; Life Cycle Status: Active; Responsible Provider: ALBANIA VARMA APRN, DNP, IVANA; Vocabulary: ICD-9-CM Eye disorder (ICD-9-CM :379.8 ) Name of Problem: Eye disorder ; Recorder: TAMMY ACEVES MD; Confirmation: Confirmed ; Classification: UPDATE NEEDED ; Code: 379.8 ; Contributor System: PowerChart ; Last Updated: 11/12/2015 4:13 HEALTH CARE / MEDICAL JOB TITLES ; Life Cycle Date: 01/05/2012 ; Life Cycle Status: Active ; Responsible Provider: TAMMY ACEVES MD; Vocabulary: ICD-9-CM ; Comments: 01/21/2012 9:37 - MATTHEW BORDEN LPN date unknown Fracture of rib (SNOMED CT :83404037 ) Name of Problem: Fracture of rib ; Onset Date: 05/12/2013 ; Recorder: SUJATHA MAR LPN; Confirmation: Confirmed ; Classification: Nursing ; Code: 83156930 ;Contributor System: PowerChart ; Last Updated: 06/07/2013 [...] System: PowerChart ; Last Updated: 11/12/2015 4:13 HEALTH CARE / MEDICAL JOB TITLES ; Life Cycle Date: 10/25/2010 ; Life Cycle Status: Active ; Responsible Provider: PATTI ALMENDAREZ LPN; Vocabulary: ICD-9-CM ; Comments: 12/31/2010 12:11 - PATTI ALMENDAREZ LPN date unknown Glaucoma (SNOMED CT :35002788 ) Name of Problem: Glaucoma ; Recorder: TAMMY ACEVES MD; Confirmation: Confirmed ; Classification: Medical ; Code: 52482122 ; Contributor System: PowerChart ; Last Updated: [...] Code: 553.3 ; Last Updated: 10/31/2013 11:53 HEALTH CARE / MEDICAL JOB TITLES ; Life Cycle Status: Active ; Responsible Provider: ALBANIA VARMA APRN, DNP, CNP; Vocabulary: ICD-9-CM Osteopenia (ICD-9-CM :733.90 ) Name of Problem: Osteopenia ; Onset Date: 02/26/1987 ; Recorder: PATTI ALMENDAREZ LPN; Confirmation: Confirmed ; Classification: Nursing ; Code: 733.90 ; Contributor System: PowerChart ; Last Updated: 10/25/2010 20:19 HEALTH CARE / MEDICAL JOB TITLES ; Life Cycle Date: 10/25/2010 ; Life Cycle Status: Active ; Responsible Provider: PATTI ALMENDAREZ LPN; Vocabulary: ICD-9-CM Diagnoses(Active) Allergic reaction - major Date: 04/10/2017 ; Diagnosis Type: Reason For Visit ; Confirmation: Complaint of ; Clinical Dx: Allergic reaction - major ; Classification: Medical ; Clinical Service: Emergency medicine ; Code: PNED ; Probability: 0 ; Diagnosis Code: [id number] Triage Chief Complaint Description : see triage Mode of Arrival ED : Private vehicle, Ambulatory Track : Medical Languages : [place] Islander Treatments Prior to Arrival : None Is Patient Female and 13-50 no hysterectomy : No MIGUEL KENDRICK Emilio 04/10/2017 10:55 CDT Pain Assessment Pain Symptoms : No MIGUEL KENDRICK Emilio 04/10/2017 10:55 CDT Respiratory Airway : Patent [...] of Speech : Appropriate for age MIGUEL KENDRICK Emilio 04/10/2017 10:55 CDT ED Psychosocial Affect/Behavior [...] 20 MIGUEL KENDRICK 04/10/2017 10:55 CDT [facility] Document Id: [id number] CDT!58 Miguel Kendrick R.N. - 04/10/2017 10:32 [...] System: PowerChart ; Last Updated: 11/17/2014 12:51 HEALTH CARE / MEDICAL JOB TITLES ; LifeCycle Status: Active ; Responsible Provider: ALBANIA VARMA APRN, YURI, TURBINE ENGINEER; Vocabulary: ICD-9-CM Allergic rhinitis, unspecified (ICD-9-CM :477.9 [...] System: PowerChart ; Last Updated: 10/25/2010 20:18 HEALTH CARE / MEDICAL JOB TITLES ; Life Cycle Date: 10/25/2010 ; Life Cycle Status: Active ; Responsible Provider: PATTI ALMENDAREZ LPN; Vocabulary: ICD-9-CM Atrophic vaginitis (ICD-9-CM :627.3 ) Name of Problem: Atrophic vaginitis ; Onset Date: 07/27/2012 ;Recorder: ALBANIA VARMA APRN, DNP, CNP; Confirmation: Confirmed ; Classification: Medical ; Code: 627.3 ; Last Updated: 07/27/2012 11:32 HEALTH CARE / MEDICAL JOB TITLES ; Life Cycle Status: Active ; Responsible Provider: ALBANIA VARMA APRN, DNP, CNP; Vocabulary: ICD-9-CM Bursitis Hip/Trochanertic (ICD-9-CM :726.5 ) Name of Problem: Bursitis Hip/Trochanertic ; Onset Date: 10/20/2011 ; Recorder: ALBANIA VARMA APRN, DNP, CNP; Confirmation: Confirmed ; Classification: Medical ; Code: 726.5 ; Last Updated: 10/20/2011 9:54 HEALTH CARE / MEDICAL JOB TITLES ; Life Cycle Status: Active ; Responsible Provider: ALBANIA VARMA APRN, DNP, CNP; Vocabulary: ICD-9-CM Cataract NOS (ICD-9-CM :366.9 ) Name of Problem: Cataract NOS ; Onset Date: 1991 ; Recorder: PATTI ALMENDAREZ LPN; Confirmation: Confirmed ; Classification: Nursing ; Code: 366.9 ; Contributor System: Boatbound ; Last Updated: 01/21/2011 10:04 CDT ; Life Cycle Date: 10/25/2010 ; Life Cycle Status: Active ; Responsible Provider: PATTI ALMENDAREZ LPN; Vocabulary: ICD-9-CM ; Comments: 12/31/2010 12:11 - PATTI ALMENDAREZ LPN date unknown Celiac Disease (ICD-9-CM :579.0 ) Name of Problem: Celiac Disease ; Onset Date: 02/26/2007 ; Recorder: PATTI ALMENDAREZ LPN; Confirmation: Confirmed ; Classification: Nursing ; Code: 579.0 ; ContributorSystem: Overture NetworksChart ; Last Updated: 10/25/2010 20:20 HEALTH CARE / MEDICAL JOB TITLES ; Life Cycle Date: 10/25/2010 ; Life [...] Code: 562.11 ; Last Updated: 10/28/2010 16:30 HEALTH CARE / MEDICAL JOB TITLES ; Life Cycle Status: Active; Responsible Provider: ALBANIA VARMA APRN, DNP, CNP; Vocabulary: ICD-9-CM Eye disorder (ICD-9-CM :379.8 ) Name of Problem: Eye disorder ; Recorder: TAMMY ACEVES MD; Confirmation: Confirmed ; Classification: UPDATE NEEDED ; Code: 379.8 ; Contributor System: PowerChart ; Last Updated: 11/12/2015 4:13 HEALTH CARE / MEDICAL JOB TITLES ; Life Cycle Date: 01/05/2012 ; Life Cycle Status: Active ; Responsible Provider: TAMMY ACEVES MD; Vocabulary: ICD-9-CM ; Comments: 01/21/2012 9:37 - MATTHEW BORDEN LPN date unknown Fracture of rib (SNOMED CT :41859759 ) Name of Problem: Fracture of rib ; Onset Date: 05/12/2013 ; Recorder: SUJATHA MAR LPN; Confirmation: Confirmed ; Classification: Nursing ; Code: 57035703 ;Contributor System: PowerChart ; Last Updated: 06/07/2013 8:10 CDT ; Life Cycle Date: 06/07/2013 ; Life Cycle Status: Active ; Responsible Provider: SUJATHA MAR LPN; Vocabulary: SNOMED CT ; Comments: 06/07/2013 8:10 - MAR, SUJATHA R HOOP RIVETING MACHINE OPERATOR HELPER left side Glaucoma (ICD-9-CM :365.44 ) Name of Problem: Glaucoma ; Onset Date: 1986 ; Recorder: PATIT ALMENDAREZ LPN; Confirmation: Confirmed ; Classification: Nursing ; Code: 365.44 ; Contributor System: PowerChart ; Last Updated: 11/12/2015 4:13 HEALTH CARE / MEDICAL JOB TITLES ; Life Cycle Date: 10/25/2010 ; Life Cycle Status: Active ; Responsible Provider: PATTI ALMENDAREZ LPN; Vocabulary: ICD-9-CM ; Comments: 12/31/2010 12:11 - PATTI ALMENDAREZ LPN date unknown Glaucoma (SNOMED CT :49448443 ) Name of Problem: Glaucoma ; Recorder: TAMMY ACEVES MD; Confirmation: Confirmed ; Classification: Medical ; Code: 03488309 ; Contributor System: Overture NetworksChart ; Last Updated: 01/05/2012 18:52 CDT [...] Code: 553.3 ; Last Updated: 10/31/2013 11:53 HEALTH CARE / MEDICAL JOB TITLES ; Life Cycle Status: Active ; Responsible Provider: ALBANIA VARMA APRN, DNP, CNP; Vocabulary: ICD-9-CM Osteopenia (ICD-9-CM :733.90 ) Name of Problem: Osteopenia ; Onset Date: 02/26/1987 ; Recorder: PATTI ALMENDAREZ LPN; Confirmation: Confirmed ; Classification: Nursing ; Code: 733.90 ; Contributor System: PowerChart ; Last Updated: 10/25/2010 20:19 HEALTH CARE / MEDICAL JOB TITLES ; Life Cycle Date: 10/25/2010 ; Life Cycle Status: Active ; Responsible Provider: PATTI ALMENDAREZ LPN; Vocabulary: ICD-9-CM Diagnoses(Active) Allergic reaction - major Date: 04/10/2017 ; Diagnosis Type: Reason For Visit ; Confirmation: Complaint of ; Clinical Dx: Allergic reaction - major ; Classification: Medical ; Clinical Service: Emergency medicine ; Code: PNED ; Probability: 0 ; Diagnosis Code: [id number] Triage Chief Complaint Description : Pt comes in with an allergic reaction to nuts. On arrival pt sats 98 %. Epi pen gave immediately Information Given By : Patient Present in Room During Exam/Procedure : Spouse Mode of Arrival ED : Private vehicle, Ambulatory Track : Medical Languages : [place] Islander Vital Signs Assessed : Yes GCS Assessed [...] Response Nabil : Spontaneously Best Verbal Response [place] : Oriented Best Motor Response [place] : Obeys simple commands Nabil Coma Score [...] Acuity : 2 -Emergent Tracking Group : [facility] ED MIGUEL KENDRICK 04/10/2017 10:52 CDT Allergy (As Of: 04/10/2017 10:55:40 CDT) Allergies (Active) Glutens Estimated Onset Date: Unspecified ; Created By: PATTI ALMENDAREZ LPN; Reaction Status: Active; Category: Drug ; Substance: Glutens ; Type: Allergy ; Updated By: PATTI ALMENDAREZ LPN; Reviewed Date: 04/10/2017 10:55 CDT miconazole topical Comments: Comment 1: MICONAZOLE NITRATE ; Created By: Contributor_system, [facility]; Reaction Status: Active ; Category: Drug ; Substance: miconazole topical ; Type: Unknown ;Updated By: Contributor_system, [facility]; Reviewed Date: 04/10/2017 10:55 CDT Nuts Estimated Onset Date: Unspecified ; Created By: PATTI ALMENDAREZ LPN; Reaction Status: Active ; Category: Food ; Substance: Nuts ; Type: Allergy ; Updated By: PATTI ALMENDAREZ LPN; Reviewed Date: 04/10/2017 10:55 CDT Immunizations Immunizations Current : Yes MIGUEL KENDRICK - 04/10/2017 10:52 CDT Source: Hitch [employer] Document Id: [id number] CDT!43 documented in this encounter Miscellaneous Notes Miscellaneous - Faviola Wilkinson R.N. - 04/10/2017 11:55 AM CDT Valuables/Belongings Valuables/Belongings Entered On: 04/10/2017 11:55 CDT Performed On: 04/10/2017 11:55 CDT by FAVIOLA WILKINSON RN Valuables/Belongings Home Medication Disposition : None brought in with patient FAVIOLA WILKINSON RN - 04/10/2017 11:55 CDT Source: Hitch [employer] Document Id: [id number] CDT!3 Miscellaneous - Conversion, Historical Provider Ser - 04/10/2017 11:55 AM CDT Coding Summary-Paper Based CODING DATE: 04/17/2017 FINAL [facility]US: * Discharged to Home or [...] CHAPIN Date Saved: 04/17/2017 01:05 pm Source: Hitch Radio Document Id: [id number] Miscellaneous - Faviola Wilkinson RDannN. - 04/10/2017 [...] Control : 12 Lynx Visit Level : 19636 Level 4 Treatments Prior to Arrival : None FAVIOLA WILKINSON RN - 04/10/2017 11:55 CDT Source: Hitch [employer] Document Id: [id number] CDT!18 documented in this encounter Plan of Treatment Not on filedocumented as of this encounter Visit Diagnoses Not on filedocumented in this encounter
--- OUTSIDE RECORDS SUMMARY | 2022-05-23 11:31 | XMS_ITS | Encounter Summary ---
:1935 Author Organization [facility] Address [address] [place] [address] Care Team Providers Name Role Phone Unavailable Primary Care Provider Unavailable Encounter Details Date Type Department Care Team Description 04/07/2016 Hospital Encounter HX [facility] ED Tabitha Samson P.AXavi [address] [place] [address] [phone] (Wo rk) Social History Tobacco [...]
--- OUTSIDE RECORDS SUMMARY | 2022-05-23 11:31 | XMS_ITS | Encounter Summary ---
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
--- OUTSIDE RECORDS SUMMARY | 2022-05-23 11:31 | XMS_ITS | Encounter Summary ---
:1935 Author Organization [facility] Address [address] [place] [id number] Care Team Providers Name Role Phone Unavailable Primary Care Provider Unavailable Encounter Details Date Type Department Care Team Description 10/30/2015 Hospital Encounter HX [facility] Tadeo Jefferson, P.ADann-C. [address] [place] [address] [phone] (Wo rk) Social History Tobacco [...]
--- OUTSIDE RECORDS SUMMARY | 2022-05-23 11:31 | XMS_ITS | Encounter Summary ---
:1935 Author Organization [facility] Address [address] [place] [address] Care Team Providers Name Role Phone Unavailable Primary Care Provider Unavailable Encounter Details Date Type Department Care Team Description 07/08/2016 Hospital Encounter HX [facility] Wisam Sebastian C.N.P. [address] [place] [address] (Wo rk) Social History Tobacco [...] Summary-Paper Based CODING DATE: 07/11/2016 FINAL [facility] STATUS: * Discharged to Home or [...] RESENDIZ Date Saved: 07/11/2016 12:56 pm Source: [facility] Document Id: [id number] documented in this encounter Plan of Treatment Not on filedocumented as of this encounter Visit Diagnoses Not on filedocumented in this encounter
--- OUTSIDE RECORDS SUMMARY | 2022-05-23 11:31 | XMS_ITS | Encounter Summary ---
:1935 Author Organization [facility] Address [address] [place] [id number] Care Team Providers Name Role Phone Unavailable Primary Care Provider Unavailable Encounter Details Date Type Department Care Team Description 04/07/2016 Hospital Encounter HX [facility] ED Jesus Alberto Samson P.A.-C. [address] [place] [address] [phone] (Wo rk) Social History Tobacco [...] Body Mass Index 27.71 10/08/2015 11:01 AM INCIDENT RESPONSE CONSULTANT documented in this encounter Discharge Summaries Jakob Maradiaga R.N. - 04/07/2016 2:34 PM CDT ED Discharge Instructions [address] [id number] Name: KATHRYN LEON Date of : 1935 12:00 AM Visit Date: 04/07/2016 10:47 AM [facility] Number: [id number] Address: [address] [place] [address] [id number] Primary Care Provider: LILIANA WHITING IMPORTANT: [facility] in [place] would like to thank you for allowing [...] heart to the brain and body. ?? [id number] [facility], [address] [place] [address], [place] [address]. All rights reserved. This information is not [...] Difficulty with speech or vision ?? [facility], [address] [place] [address]. All rights reserved. This information is not [...] diarrhea, vomiting, or a high fever. ?? [facility], [address] [place] [address]. All rights reserved. This information is not [...] if you dont have one. Go to [email or web address] and click on Create Your Account. Then, follow the directions to complete the online form. Youll be asked for your [facility] number which you can find at [...] release) 1 tab(s)Oral two times a day rondarhamedaria/[place] [phone] estradiol topical (Vagifem 10 mcg vaginal tablet) 10 mcg Vaginal 2 times a week Member No [id number] omeprazole (omeprazole 40 mg oral delayed release capsule) 40 mg Oral two times a day 30-60 min prior to meals / last saw patient 03/30/15, no mention of f/u, but referred patient to Dr. Mosley at [facility] meclizine (meclizine 12.5 mg oral tablet) [...] document has images extracted. Please consider using ReadyCart for all your patient education needs. Source: [facility] POWERCHART Document Id: [id number] Jakob Maradiaga R.N. - 04/07/2016 2:34 PM CDT ED Depart Summary [facility] Emergency Department Clinical Discharge Summary PERSON INFORMATION Name KATHRYN LEON Age 81 Years 1935 12:00 AM Sex Female Language Turkmen PCP PCP, ELSEWHERE Marital Status Visit Id Visit Reason Syncope/Near syncope; fainting Specialty Enc Type Emergency Med Service Emergency Medicine Referred by Track Group [facility] ED Discharge 04/07/2016 2:34 PM Tracking Id [id number] Checkout 04/07/2016 2:34 PM Checkin 04/07/2016 10:47 AM Acuity 2 -Emergent Dispo Type * Discharged to Home or Self Care Arrival 04/07/2016 10:47 AM Reg Status Complete LOS 000 03:47 Address: [address] [place] [address] [phone] Comment: PROVIDER INFORMATION Provider Role Provider Contact Time JAKOB MARADIAGA SYSTEMS PROGRAMMER ANALYST Nurse 04/07/16 10:49 JESUS ALBERTO ALFONSO ED Provider 04/07/16 10:53 CORIE DUTTA SYSTEMS PROGRAMMER ANALYST Nurse 04/07/16 12:00 CORIE DUTTA SYSTEMS PROGRAMMER ANALYST Nurse 04/07/16 12:00 DIAGNOSIS Dehydration; Dizziness; Syncope NOS Comment: PATIENT EDUCATION INFORMATION Instructions: Causes of Syncope; DIZZINESS, Unk Cause; Dehydration Follow up: With: Address: When: Follow up with primary care provider Within 2 - 4 days Comments: For recheck. Source: [facility] POWERCHART Document Id: [id number] documented in this encounter Medications at Time [...] MARADIAGA RN - 04/07/2016 14:33 CDT Source: [facility] ReactX Document Id: [id number] CDT!9 Jakob Maradiaga R.N. - 04/07/2016 2:24 [...] MARADIAGA RN - 04/07/2016 14:24 CDT Source: [employer] Document Id: [id number] CDT!8 Jakob Maradiaga R.N. - 04/07/2016 2:23 [...] MARADIAGA RN - 04/07/2016 14:23 CDT Source: [employer] Document Id: [id number] CDT!10 Jakob Maradiaga R.N. - 04/07/2016 2:19 PM CDT ED Treatments and Procedures ED Treatments and Procedures Entered On: 04/07/2016 14:23 CDT Performed On: 04/07/2016 14:19 CDT by JAKOB MARADIAGA RN Cardiac Monitoring Monitoring Lead : II Monitoring Lead Acls Nurse : Discontinued Cardiac Rhythm Tech : Sinus [...] MARADIAGA RN - 04/07/2016 14:19 CDT [facility]: [facility] CommunicationsCHART Document Id: [id number] CDT!25 Jakob Maradiaga R.N. - 04/07/2016 1:35 PM CDT ED Nurse Reassess ED Nurse Reassess Entered On: 04/07/2016 13:37 CDT Performed On: 04/07/2016 13:35 CDT by JAKOB MARADIAGA RN Pain Assessment [...] Response Nabil : Spontaneously Best Verbal Response [place] : Oriented Best Motor Response Nabil : Obeys simple commands [place] Coma Score : 15 JAKOB MARADIAGA RN [...] MARADIAGA RN - 04/07/2016 13:35 CDT Source: [facility] Document Id: [id number] CDT!42 Jakob Maradiaga R.N. - 04/07/2016 11:28 [...] Medical ; Code: 790.6 ; Contributor System: [email or web address] ; Last Updated: 11/17/2014 12:51 INCIDENT RESPONSE CONSULTANT ; Life CycleStatus: Active ; Responsible Provider: ALBANIA VARMA CNP, DNP; Vocabulary: ICD-9-CM Allergic rhinitis, unspecified (ICD-9-CM :477.9 ) Name of Problem: Allergic rhinitis, unspecified ; Onset Date: 1952 ; Recorder: PATTI ALMENDAREZ LPN; Confirmation: Confirmed ; Classification: Nursing ;Code: 477.9 ; Contributor System: [email or web address] ; Last Updated: 01/21/2011 10:04 CDT ; [...] Nursing ; Code: 714.0 ; Contributor System: PhiloChart ; Last Updated: 10/25/2010 20:18 INCIDENT RESPONSE CONSULTANT ; Life Cycle Date: 10/25/2010 ; Life Cycle Status: Active ; Responsible Provider: PATTI ALMENDAREZ LPN; Vocabulary: ICD-9-CM Atrophic vaginitis (ICD-9-CM :627.3 ) Name of Problem: Atrophic vaginitis ; Onset Date: 07/27/2012 ;Recorder: ALBANIA VARMA CNP, DNP; Confirmation: Confirmed ; Classification: Medical ; Code: 627.3 ;Last Updated: 07/27/2012 11:32 INCIDENT RESPONSE CONSULTANT ; Life Cycle Status: Active ; Responsible Provider: ALBANIA VARMA CNP, DNP; Vocabulary: ICD-9-CM Bursitis Hip/Trochanertic (ICD-9-CM :726.5 ) Name of Problem: Bursitis Hip/Trochanertic ; Onset Date: 10/20/2011 ; Recorder: ALBANIA VARMA CNP, DNP; Confirmation: Confirmed ; Classification: Medical ;Code: 726.5 ; Last Updated: 10/20/2011 9:54 INCIDENT RESPONSE CONSULTANT ; Life Cycle Status: Active ; Responsible Provider: ALBANIA VARMA CNP, DNP; Vocabulary: ICD-9-CM Cataract NOS (ICD-9-CM :366.9 ) Name of Problem: Cataract NOS ; Onset Date: 1991 ; Recorder: PATTI ALMENDAREZ LPN; Confirmation: Confirmed ; Classification: Nursing ; Code: 366.9 ; Contributor System: PhiloChart ; Last Updated: 01/21/2011 10:04 CDT ; Life Cycle Date: 10/25/2010 ; Life Cycle Status: Active ; Responsible Provider: PATTI ALMENDAREZ LPN; Vocabulary: ICD-9-CM ; Comments: 12/31/2010 12:11 - PATTI ALMENDAREZ LPN date unknown Celiac Disease (ICD-9-CM :579.0 ) Name of Problem: Celiac Disease ; Onset Date: 02/26/2007 ; Recorder: PATTI ALMENDAREZ LPN; Confirmation: Confirmed ; Classification: Nursing ; Code: 579.0 ; ContributorSystem: [email or web address] ; Last Updated: 10/25/2010 20:20 INCIDENT RESPONSE CONSULTANT ; Life Cycle Date: 10/25/2010 ; Life [...] Medical ; Code: J38.3 ; Contributor System: PhiloChart ; Last Updated: 07/10/2015 10:30 CDT ; Life Cycle Status: Active ; Responsible Provider: ALBANIA VARMA CNP, DNP; Vocabulary: ICD-10-CM Diverticulitis of large intestine (ICD-9-CM :562.11 ) Name of Problem: Diverticulitis of large intestine ; Onset Date: 10/28/2010 ; Recorder: ALBANIA VARMA CNP, DNP; Confirmation: Confirmed ; Classification: Medical ; Code: 562.11 ; Last Updated: 10/28/2010 16:30 INCIDENT RESPONSE CONSULTANT ; Life Cycle Status: Active ; Resp onsible Provider: ALBANIA VARMA CNP, DNP; Vocabulary: ICD-9-CM Eye disorder (ICD-9-CM :379.8 ) Name of Problem: Eye disorder ; Recorder: TAMMY ACEVES MD; Confirmation: Confirmed ; Classification: UPDATE NEEDED ; Code: 379.8 ; Contributor System: PhiloChart ; Last Updated: 11/12/2015 4:13 INCIDENT RESPONSE CONSULTANT ; Life Cycle Date: 01/05/2012 ; Life Cycle Status: Active ; Responsible Provider: TAMMY ACEVES MD; Vocabulary: ICD-9-CM ; Comments: 01/21/2012 9:37 - BORDENMATTHEW MUNROE LPN date unknown Fracture of rib (SNOMED CT :80119310 ) Name of Problem: Fracture of rib ; Onset Date: 05/12/2013 ; Recorder: SUJATHA MAR LPN; Confirmation: Confirmed ; Classification: Nursing ; Code: 27892019 ;Contributor System: PowerChart ; Last Updated: 06/07/2013 [...] System: PowerChart ; Last Updated: 11/12/2015 4:13 INCIDENT RESPONSE CONSULTANT ; Life Cycle Date: 10/25/2010 ; Life Cycle Status: Active ; Responsible Provider: PATTI ALMENDAREZ LPN; Vocabulary: ICD-9-CM ; Comments: 12/31/2010 12:11 - PATTI ALMENDAREZ LPN date unknown Glaucoma (SNOMED CT :75993310 ) Name of Problem: Glaucoma ; Recorder: TAMMY ACEVES MD; Confirmation: Confirmed ; Classification: Medical ; Code: 79451359 ; Contributor System: PhiloChart ; Last Updated: 01/05/2012 18:52 CDT ; [...] Code: 553.3 ; Last Updated: 10/31/2013 11:53 INCIDENT RESPONSE CONSULTANT ; Life Cycle Status: Active ; Responsible Provider: ALBANIA VARMA CNP, DNP; Vocabulary: ICD-9-CM Osteopenia (ICD-9-CM :733.90 ) Name of Problem: Osteopenia ; Onset Date: 02/26/1987 ; Recorder: PATTI ALMENDAREZ LPN; Confirmation: Confirmed ; Classification: Nursing ; Code: 733.90 ; Contributor System: [email or web address] ; Last Updated: 10/25/2010 20:19 INCIDENT RESPONSE CONSULTANT ; Life Cycle Date: 10/25/2010 ; Life Cycle Status: Active ; Responsible Provider: PATTI ALMENDAREZ LPN; Vocabulary: ICD-9-CM Diagnoses(Active) Syncope/Near syncope Date: 04/07/2016 ; Diagnosis Type: Reason For Visit ; Confirmation: Confirmed ;Clinical Dx: Syncope/Near syncope ; Classification: Medical ; Clinical Service: Emergency medicine ;Code: PNED ; Probability: 0 ; Diagnosis Code: [id number] Triage Chief Complaint Description : See Triage: [...] Private vehicle Track : Medical Languages : Turkmen Patient Informed of Triage Location : Emergency [...] Acuity : 2 -Emergent Tracking Group : [facility] ED ZACHARIAH JAKOB Jhaveri RN - 04/07/2016 11:28 CDT Allergy (As Of: 04/07/2016 11:37:52 CDT) Allergies (Active) Glutens Estimated Onset Date: Unspecified ; Created By: PATTI ALMENDAREZ LPN; Reaction Status: Active; Category: Drug ; Substance: Glutens ; Type: Allergy ; Updated By: PATTI ALMENDAREZ LPN; Reviewed Date: 04/07/2016 11:33 CDT miconazole topical Comments: Comment 1: MICONAZOLE NITRATE ; Created By: Contributor_system [facility]_HX_ALRG_SYS; Reaction Status: Active ; Category: Drug ; Substance: miconazole topical ; Type: Unknown ;Updated By: Contributor_system, [facility]_HX_ALRG_SYS; Reviewed Date: 04/07/2016 11:33 CDT Nuts Estimated Onset Date: Unspecified ; Created By: PATTI ALMENDAREZ LPN; Reaction Status: Active ; Category: Food ; Substance: Nuts ; Type: Allergy ; Updated By: PATTI ALMENDAREZ LPN; Reviewed Date: 04/07/2016 11:33 CDT ID Screen Drug Resistant Organism : No JAKOB MARADIAGA Emilio LANG - 04/07/2016 11:28 CDT Immunizations Immunizations Current : Yes EDNAAMANDASuhasJAKOB Emilio RN - 04/07/2016 11:28 CDT Respiratory Airway [...] : Dizziness, Fatigue Nail Bed Color : [place] Capillary Refill : Less than 2 seconds [...] : None Loss of Consciousness : Unknown EDNAAMANDASuhasJAKOB Emilio - 04/07/2016 11:28 CDT ED Psychosocial [...] JAKOB MARADIAGA - 04/07/2016 11:28 CDT Source: [facility] Document Id: [id number] CDT!126 Jakob Maradiaga R.N. - 04/07/2016 11:16 [...] Medical ; Code: 790.6 ; Contributor System: PhiloChart ; Last Updated: 11/17/2014 12:51 INCIDENT RESPONSE CONSULTANT ; Life CycleStatus: Active ; Responsible Provider: [...] Nursing ; Code: 714.0 ; Contributor System: PhiloChart ; Last Updated: 10/25/2010 20:18 INCIDENT RESPONSE CONSULTANT ; Life Cycle Date: 10/25/2010 ; Life Cycle Status: Active ; Responsible Provider: PATTI ALMENDAREZ LPN; Vocabulary: ICD-9-CM Atrophic vaginitis (ICD-9-CM :627.3 ) Name of Problem: Atrophic vaginitis ; Onset Date: 07/27/2012 ;Recorder: ALBANIA VARMA CNP, DNP; Confirmation: Confirmed ; Classification: Medical ; Code: 627.3 ;Last Updated: 07/27/2012 11:32 INCIDENT RESPONSE CONSULTANT ; Life Cycle Status: Active ; Responsible Provider: ALBANIA VARMA CNP, DNP; Vocabulary: ICD-9-CM Bursitis Hip/Trochanertic (ICD-9-CM :726.5 ) Name of Problem: Bursitis Hip/Trochanertic ; Onset Date: 10/20/2011 ; Recorder: ALBANIA VARMA CNP, DNP; Confirmation: Confirmed ; Classification: Medical ;Code: 726.5 ; Last Updated: 10/20/2011 9:54 INCIDENT RESPONSE CONSULTANT ; Life Cycle Status: Active ; Responsible Provider: ALBANIA VARMA CNP, DNP; Vocabulary: ICD-9-CM Cataract NOS (ICD-9-CM :366.9 ) Name of Problem: Cataract NOS ; Onset Date: 1991 ; Recorder: PATTI ALMENDAREZ LPN; Confirmation: Confirmed ; Classification: Nursing ; Code: 366.9 ; Contributor System: [email or web address] ; Last Updated: 01/21/2011 10:04 CDT ; [...] ContributorSystem: PowerChart ; Last Updated: 10/25/2010 20:20 INCIDENT RESPONSE CONSULTANT ; Life Cycle Date: 10/25/2010 ; Life [...] Medical ; Code: J38.3 ; Contributor System: PhiloChart ; Last Updated: 07/10/2015 10:30 CDT ; Life Cycle Status: Active ; Responsible Provider: ALBANIA VARMA CNP, DNP; Vocabulary: ICD-10-CM Diverticulitis of large intestine (ICD-9-CM :562.11 ) Name of Problem: Diverticulitis of large intestine ; Onset Date: 10/28/2010 ; Recorder: ALBANIA VARMA CNP, DNP; Confirmation: Confirmed ; Classification: Medical ; Code: 562.11 ; Last Updated: 10/28/2010 16:30 INCIDENT RESPONSE CONSULTANT ; Life Cycle Status: Active ; Resp onsible Provider: ALBANIA VARMA CNP, DNP; Vocabulary: ICD-9-CM Eye disorder (ICD-9-CM :379.8 ) Name of Problem: Eye disorder ; Recorder: TAMMY ACVEES MD; Confirmation: Confirmed ; Classification: UPDATE NEEDED ; Code: 379.8 ; Contributor System: PhiloChart ; Last Updated: 11/12/2015 4:13 INCIDENT RESPONSE CONSULTANT ; Life Cycle Date: 01/05/2012 ; Life Cycle Status: Active ; Responsible Provider: TAMMY ACEVES MD; Vocabulary: ICD-9-CM ; Comments: 01/21/2012 9:37 - MATTHEW BORDEN LPN date unknown Fracture of rib (SNOMED CT :72956216 ) Name of Problem: Fracture of rib ; Onset Date: 05/12/2013 ; Recorder: SUJATHA MAR LPN; Confirmation: Confirmed ; Classification: Nursing ; Code: 53769730 ;Contributor System: PowerChart ; Last Updated: 06/07/2013 [...] System: PowerChart ; Last Updated: 11/12/2015 4:13 INCIDENT RESPONSE CONSULTANT ; Life Cycle Date: 10/25/2010 ; Life Cycle Status: Active ; Responsible Provider: PATTI ALMENDAREZ LPN; Vocabulary: ICD-9-CM ; Comments: 12/31/2010 12:11 - PATTI ALMENDAREZ LPN date unknown Glaucoma (SNOMED CT :32792955 ) Name of Problem: Glaucoma ; Recorder: TAMMY ACEVES MD; Confirmation: Confirmed ; Classification: Medical ; Code: 32246862 ; Contributor System: PhiloChart ; Last Updated: 01/05/2012 18:52 CDT ; [...] Code: 553.3 ; Last Updated: 10/31/2013 11:53 INCIDENT RESPONSE CONSULTANT ; Life Cycle Status: Active ; Responsible Provider: ALBANIA VARMA CNP, DNP; Vocabulary: ICD-9-CM Osteopenia (ICD-9-CM :733.90 ) Name of Problem: Osteopenia ; Onset Date: 02/26/1987 ; Recorder: PATTI ALMENDAREZ LPN; Confirmation: Confirmed ; Classification: Nursing ; Code: 733.90 ; Contributor System: PhiloChart ; Last Updated: 10/25/2010 20:19 INCIDENT RESPONSE CONSULTANT ; Life Cycle Date: 10/25/2010 ; Life Cycle Status: Active ; Responsible Provider: PATTI ALMENDAREZ LPN; Vocabulary: ICD-9-CM Diagnoses(Active) Syncope/Near syncope Date: 04/07/2016 ; Diagnosis Type: Reason For Visit ; Confirmation: Confirmed ;Clinical Dx: Syncope/Near syncope ; Classification: Medical ; Clinical Service: Emergency medicine ;Code: PNED ; Probability: 0 ; Diagnosis Code: [id number] Triage Chief Complaint Description : 81 yo female presents to the ED from the clinic lab draw after vaso vagal response, pt. was lowered to the floor. Pt. was here from [facility] PCP Harman Aldrich for CTabdomen. Pt. started having sx diarrhea on 04/02 and has not gotten better. Information Given By : Patient, Spouse Present in Room During Exam/Procedure : Spouse Mode of Arrival ED : Private vehicle Track : Medical Languages : Turkmen Patient Informed of Triage Location : Emergency [...] JAKOB MARADIAGA RN - 04/07/2016 11:16 CDT [place] Coma Eye Opening Response Nabil : To voice Best Verbal Response [place] : Oriented Best Motor Response [place] : Obeys simple commands [place] Coma Score : 14 JAKOB MARADIAGA RN [...] JAKOB MARADIAGA RN - 04/07/2016 11:16 CDT CMAI CAMI Level 1 : No CAMI Level 2 : No CAMI Level 3 : Many Vital Signs CAMI : Danger zone (HR > 100, RR > 20, SaO2 < 92%) JAKOB MARADIAGA RN - 04/07/2016 11:16 CDT DCP GENERIC CODE Tracking Acuity : 2 -Emergent Tracking Group : [facility] ED JAKOB MARADIAGA RN - 04/07/2016 11:16 CDT Allergy (As Of: 04/07/2016 11:21:56 CDT) Allergies (Active) Glutens Estimated Onset Date: Unspecified ; Created By: PATTI ALMENDAREZ LPN; Reaction Status: Active; Category: Drug ; Substance: Glutens ; Type: Allergy ; Updated By: PATTI ALMENDAREZ LPN; Reviewed Date: 04/07/2016 11:21 CDT miconazole topical Comments: Comment 1: MICONAZOLE NITRATE ; Created By: Contributor_system, [facility]_HX_ALRG_SYS; Reaction Status: Active ; Category: Drug ; Substance: miconazole topical ; Type: Unknown ;Updated By: Contributor_system, [facility]_HX_ALRG_SYS; Reviewed Date: 04/07/2016 11:21 CDT Nuts Estimated Onset Date: Unspecified ; Created By: PATTI ALMENDAREZ LPN; Reaction Status: Active ; Category: Food ; Substance: Nuts ; Type: Allergy ; Updated By: PATTI ALMENDAREZ LPN; Reviewed Date: 04/07/2016 11:21 CDT ID Screen Drug Resistant Organism : No JAKOB MARADIAGA RN - 04/07/2016 11:16 CDT Source: [facility] Document Id: [id number] CDT!47 Jakob Maradiaga R.N. - 04/07/2016 11:04 [...] MARADIAGA RN - 04/07/2016 11:22 CDT Source: [employer] Document Id: [id number] CDT!30 Jakob Maradiaga R.N. - 04/07/2016 11:00 AM CDT ED Treatments and Procedures ED Treatments and Procedures Entered On: 04/07/2016 11:25 CDT Performed On: 04/07/2016 11:00 CDT by JAKOB MARADIAGA RN Cardiac Monitoring Monitoring Lead : II Monitoring Lead Acls Nurse : Initiated Cardiac Rhythm Tech : Sinus rhythm JAKOB MARADIAGA RN - 04/07/2016 11:25 CDT Source: [employer] Document Id: [id number] CDT!5 Jesus Alberto Samson P.A.-C. - 04/07/2016 [...] on 04/06/16 after being seen in the [facility] clinic on . She tells me that [...] an egg yesterday. She was at the [facility] clinic again this morning and was sent [...] tablet: 10 mcg, Vaginal, 2xWeek, Member No [id number], 26 tab(s), 2 Refill(s) gabapentin 300 mg [...] (365.9): Resolved.. Surgical history: Upper gastrointestinal endoscopy ([id number]) on 11/30/2013 at 78 Years. MAMMOGRAM (G0202) on 08/25/2013 at 78 Years. Comments: 10/31/2013 11:24 - SUJATHA MAR LPN Atilio Normal may resume in [facility] Mammogram ([id number]) on 07/15/2012 at 77 Years. Diagnostic colonoscopy ([id number]) on 03/25/2011 at 76 Years. Comments: 03/25/2011 08:49 - SAGRARIO NOLAND MD Sigmoid diverticulosis--not inflamed. Dual-energy X-ray absorptiometry (DXA), bone density study, 1 or more sites; axial skeleton (eg, hips, pelvis, spine).. (92845) in the week of 08/14/2010 at 75 Years. Comments: 10/25/2010 09:40 - CARMELO RHODES Hx: [id number] - BONE DEN HIPS/PEL/SP 08/01/2013 19:17 - Contributor source changed to PowerChart. Mammogram ([id number]) on 07/22/2010 at 75 Years. Mammogram ([id number]) on 06/28/2010 at 75 Years. Laminectomy approach to lumbar spine (708822503) in 2008 at 74 Years. Colonoscopy ([id number]) on 02/01/2009 at 73 Years. Extracapsular cataract removal with insertion of intraocular lens prosthesis (1 stage procedure), manual or mechanical technique (eg, irrigation and aspiration or phacoemulsification) (37255) on 02/26/2007 at 72 Years. Comments: 10/25/2010 20:26 - ERICKSON, PATTI L MOLDER VACUUM left HC COLONOSCOPY W SNARE REMOVAL TUMOR/POLYP/LESION - 12/31/06 on 12/31/2006 at 71 Years. HC ANTER COLPORRHAPHY,BLAD/VAGINA - 03/22/01 - ANTERIOR POSTERIOR REPAIR on 03/22/2001 at 66 Years. HC FLEX SIGMOIDOSCOPY W/WO JAMES SPEC BY BRUSH/WASH - on 06/14/1999 at 64 Years. Repair of cystocele (013016784) in 1994 at 60 Years. Reduction mammaplasty () on 02/26/1982 at 47 Years. Hysterectomy ([id number]) on 11/04/1966 at 31 Years. Comments: 03/25/2011 08:51 - SAGRARIO NOLAND MD Vaginal Hemorrhoidectomy, internal and external, single column/group; (44453) on 02/26/1959 at 24 Years. C GLAUCOMA [...] disorder / 379.8 / Confirmed Glaucoma / [id number] / Confirmed Allergic rhinitis, unspecified / 477.9 / Confirmed Hernia, hiatal / 553.3 / Confirmed Diverticulitis of large intestine / 562.11 / Confirmed Fracture of rib / 95366616 / Confirmed Celiac Disease / 579.0 / [...] back. Groggy. Able to answer questions. . [place] coma scale: Eye response: 4 /4, verbal [...] Absolute 2.92 10(9)/L Lymph Absolute 1.56 x10(9)/L [place] Absolute 0.62 x10(9)/L Eos Absolute 0.15 x10(9)/L [...] Absolute 2.26 10(9)/L Lymph Absolute 1.29 x10(9)/L [place] Absolute 0.56 x10(9)/L Eos Absolute 0.12 x10(9)/L [...] Arterial Pressure 76 mmHg BP Location Left [facility] 04/07/2016 13:34 CDT Temperature Core 35.8 DegC LOW Peripheral Pulse Rate 65 /min Respiratory Rate 18 /min SpO2 99 % Systolic Blood Pressure 127 mmHg Diastolic Blood Pressure 64 mmHg BP Location Left [facility] 04/07/2016 12:19 CDT Temperature Core 35.8 DegC LOW Apical Heart Rate 66 /min Respiratory Rate 17 /min SpO2 99 % Systolic Blood Pressure 120 mmHg Diastolic Blood Pressure 45 mmHg <LLOW BP Location [facility] 04/07/2016 11:28 CDT Temperature Core 35.4 DegC LOW Apical Heart Rate 58 /min LOW Respiratory Rate 15 /min SpO2 100 % Systolic Blood Pressure 119 mmHg Diastolic Blood Pressure 56 mmHg Mean Arterial Pressure 77 mmHg BP Location Left [facility] 04/07/2016 11:16 CDT Temperature Core 35.6 DegC LOW 04/07/2016 11:15 CDT Apical Heart Rate 61 /min Respiratory Rate 15 /min SpO2 97 % Systolic Blood Pressure 113 mmHg Diastolic Blood Pressure 59 mmHg BP Location [facility] 04/07/2016 11:05 CDT Apical Heart Rate 60 /min Respiratory Rate 17 /min SpO2 94 % Systolic Blood Pressure 112 mmHg Diastolic Blood Pressure 67 mmHg BP Location [facility] 04/07/2016 10:54 CDT Peripheral Pulse Rate 60 [...] FIGUEROA MD On: 04/08/2016 07:12 AM Source: [employer] Document Id: [id number]} documented in this encounter Miscellaneous Notes Miscellaneous - Conversion, Historical Provider Ser - 04/07/2016 2:34 PM CDT Coding Summary-Paper Based CODING DATE: 04/15/2016 FINAL [place] [facility] STATUS: * Discharged to Home [...] DAVIS Date Saved: 04/15/2016 12:26 pm Source: [employer] Document Id: [id number] Miscellaneous - Jakob Maradiaga R.N. - 04/07/2016 2:23 PM CDT Valuables/Belongings Valuables/Belongings Entered On: 04/07/2016 14:24 CDT Performed On: 04/07/2016 14:23 CDT by JAKOB MARADIAGA RN Valuables/Belongings Belongings Sent Home With : sent home with patient Home Medication Disposition : None brought in with patient JAKOB MARADIAGA RN - 04/07/2016 14:23 CDT Source: [facility] Document Id: [id number] CDT!4 Miscellaneous - Jakob Maradiaga R.N. - [...] MARADIAGA RN - 04/07/2016 14:18 CDT Source: [employer] Document Id: [id number] CDT!12 Cherylcellaneous - Jakob Maradiaga R.N. - [...] Control : 12 Lynx Visit Level : 23660 Level 4 Treatments Prior to Arrival : IV insertion JAKOB MARADIAGA RN - 04/07/2016 14:24 CDT Chief Complaint 11.0 Reason For Visit Category : General medicine TVL Calculation : 12 ED Chief Complaint General Medicine 11.0 : Dizziness TVL for Facility Charge Ticket Dx : Level 4 JAKOB MARADIAGA RN - 04/07/2016 14:24 CDT Source: [email or web address] POWERCHART Document Id: [id number] CDT!24 documented in this encounter Plan of [...] / Volume Laterality 04/07/2016 11:09 AM CDT [facility] - 04/07/2016 11:09 AM CDT [...] Organization Address City/State/ZIP Code Phon e Number [facility] [address] [place] [id number] Troponin T (04/07/2016 11:05 AM CDT) P athologist Signature Troponin T, S <0.01 <=0.01 NGML POWERCHART Comment: 0.03 - 0.1 ng/mL Intermediate Z one Specimen (Source) Anatomical Collection Method Collection Time Re ceived Time Location / / Volume Laterality Blood 04/07/2016 11:05 AM CDT Jesus Alberto Fleming-CDann LAB BLOOD ADD-ON Performing Organization Address City/[facility]/ZIP Code Phon e Number POWERCHART Thyroid-Stimulating Hormone-Sensitive [...] LAB BLOOD NON ADD-ON Performing Organization Address City[facility] Code Phon e Number POWERCHART [...] P.A.-C. LAB BLOOD ADD-ON Performing Organization Address [facility] Phon e Number POWERCHART CBC with Differential (04/07/2016 10:46 AM CDT) P athologist Signature Leukocytes 5.3 3.4 - 10.5 POWERCHART [id number] Erythrocytes 4.75 3.90 - 5.03 POWERCHART [id number] Hemoglobin 15.0 12.0 - 15.5 POWERCHART GDL [...] P.A.-C. LAB BLOOD ADD-ON Performing Organization Address City[facility] Phon e Number POWERCHART (ABNORMAL) CMP (Comprehensive [...] POWERCHART MMOLL HXeGFR (MDRD) >60 >=60 POWERCHART [id number] 2 eGFR Black/ >60 >=60 POWERCHART Uzbek [id number] 2 Bilirubin, Total, S 0.4 0.1 - [...]
--- OUTSIDE RECORDS SUMMARY | 2022-05-23 11:31 | XMS_ITS | Encounter Summary ---
:1935 Author Organization [facility] Address [address] [place] [address] Care Team Providers Name Role Phone Unavailable Primary Care Provider Unavailable Encounter Details Date Type Department Care Team Description 07/12/2015 Hospital Encounter HX [facility] [place] Varma, CYRIL, C.N.P., D. N.P. [address] [place] [phone] (Wo rk) Social History Tobacco Use [...] APRN, C.N.P. - 07/12/2015 11:45 AM CDT [id number] CHIEF COMPLAINT/REASON FOR VISIT Multiple issues. Patient [...] the content. Aakash Quiroga/farhat Electronically Signed By: ALBANAI VARMA RN, [facility] On: 07/17/2015 04:49 PM Source: [facility] MHSDOLBEYNONRADSYS Document Id: [id number] TRICAL AND INSTRUMENT MECHANIC documented in this encounter Miscellaneous Notes Miscellaneous - Linnette Whittaker - 11/22/2015 10:45 AM CST Flonase Refill Document Contains Addenda Addendum by LINNETTE WHITTAKER on November 22, 2015 13:51:51 ELECTRICAL AND INSTRUMENT MECHANIC noted Addendum by HUNTER SEQUEIRA MD on November 22, 2015 12:45:29 ELECTRICAL AND INSTRUMENT MECHANIC From: HUNTER SEQUEIRA MD Sent: 11/22/2015 12:45:29 ELECTRICAL AND INSTRUMENT MECHANIC Subject: RE:Flonase Refill Approved Order:fluticasone nasal (Flonase 50 mcg/inh nasal spray) 2 spray(s) Nostrils(Both) Daily Qty: 3 each Refills: 1 Route To Pharmacy - [facility] Signed by HUNTER SEQUEIRA MD 11/22/2015 12:45:23 From: LINNETTE WHITTAKER To: HUNTER SEQUEIRA MD; LINNETTE WHITTAKER; Sent: 11/22/2015 10:45:48 ELECTRICAL AND INSTRUMENT MECHANIC Subject: Flonase Refill On hold pending signature Order:fluticasone nasal (Flonase 50 mcg/inh nasal spray) 2 spray(s) Nostrils(Both) Daily Qty: 3 each Refills: 1 Route To Pharmacy - [facility] LF 05/04/15 #3 1 refill 07/12/15 wInge Hernandez Source: [facility] POWERCHART Document Id: [id number] documented in this encounter Plan of Treatment Not on filedocumented as of this encounter Visit Diagnoses Not on filedocumented in this encounter
--- OUTSIDE RECORDS SUMMARY | 2022-05-23 11:31 | XMS_ITS | Encounter Summary ---
:1935 Author Organization [facility] Address [address] [place] [address] Care Team Providers Name Role Phone Unavailable Primary Care Provider Unavailable Encounter Details Date Type Department Care Team Description 10/08/2016 Hospital Encounter [facility]X [facility] Bailey Nino P.A.-C. [address] [address] [place] [address] (Wo rk) Social History Tobacco Use Types Packs/Day Years Used Date Smoking Tobacco: Never Sex Assigned at Date Recorded Not on file documented as of this encounter Last Filed Vital Signs Vital Sign Reading Time Taken Comments Blood Pressure 124/60 10/08/2016 12:51 PM [facility] Pulse 76 10/08/2016 12:51 PM [facility] Temperature - - Respiratory Rate - - Oxygen Saturation - - Inhaled Oxygen Concentration - - Weight 70.6 kg (155 lb 10.3 oz) 10/08/2016 12:51 PM [facility] Height - - Body Mass Index 26.57 [...] evaluate this pain. Patient had a colonoscopy [id number] which showed extensive sigmoid diverticulosis. Abdominal ultrasound [...] mcg vaginal tablet, 10 mcg, Member No [id number], Vaginal, 2xWeek, 2 refills Vitamin B-12, 1,000 [...] GALLEGOS P.A.-C. On: 10/10/2016 12:15 PM Source: [facility] POWERCHART Document Id: [id number] [facility] documented in this encounter Miscellaneous Notes Telephone Encounter - Conversion, Historical Provider Ser - 10/22/2016 4:26 PM CST *Phone Message Document Contains Addenda Addendum by CESAR LOCO CMA on October 24, 2016 13:09:21 [facility] Patient advised. She says she has sharp pains that last 3-6 minutes. This happens periodically throughout the day/week. I advised her that an attack as refered to below consist of constant pain. She is ok with continuing with high fiber diet and contacting us if pain worsens or doesn't go away. Addendum by CESAR LOCO CMA on October 24, 2016 10:38:45 [facility] Left message on machine to call back. Addendum by BAILEY GALLEGOS P.A.-C. on October 23, 2016 16:31:08 [facility] From: BAILEY GALLEGOS P.A.-C. To: Specialty Medicine Nurse; Sent: 10/23/2016 16:31:08 [facility] Subject: RE: *Phone Message Surgery for diverticulitis [...] LOCO CMA on October 22, 2016 16:32:31 [facility] From: CESAR LOCO CMA ( Specialty Medicine Nurse) To: BAILEY GALLEGOS P.A.-C.; Sent: 10/22/2016 16:32:31 [facility] Subject: FW: *Phone Message From: SANTI LEO ( Internal Medicine Refrigerator Room Clerk) To: Specialty Medicine Nurse; Sent: 10/22/2016 16:26:24 [facility] Subject: *Phone Message Caller is: ( ) [...] Advice/Action: Please follow up with Kathryn at [phone]. Thank You! Source used: ( ) Verbalizes [...] back cell phone number ( ) Source: [facility] [employer] Document Id: [id number] Miscellaneous - Cesar Loco, C.M.A. - 10/08/2016 12:51 PM CST Adult Apartment Coordinator Intake/History Adult Apartment Coordinator Intake/History Entered On: 10/08/2016 12:55 [facility] Performed On: 10/08/2016 12:51 [facility] by CESAR LOCO ROBOTICS APPLICATION ENGINEER Intake Chief Complaint : consult regarding intermittent [...] 70.6 kg CESAR LOCO CMA 10/08/2016 12:51 [facility] General Info Information Given By : Patient Preferred Communication Mode : Verbal Languages : Vietnamese Is Patient Female and 13-50 no hysterectomy : No CESAR LOCO CMA 10/08/2016 12:51 [facility] Subjective Pain Symptoms : Yes CESAR LOCO CMA 10/08/2016 12:51 [facility] Pain Scale Pain Scale Verbal 0-10 : Open CESAR LOCO CMA 10/08/2016 12:51 [facility] Pain Pain Assessment Grid Pain 1 Location : Abdomen Laterality : Left Intensity : 0 Time Pattern : Intermittent CESAR LOCO CMA 10/08/2016 12:51 [facility] Dependent Habits Exposure to Tobacco Smoke : Care provider denies smoking in home, Other: never Smoking Status : Never smoker Tobacco 2A : No Tobacco Use/Currently Using : No Tobacco Use/Last 30 Days : No Tobacco Use/Last 12 months : No Alcohol Use : Yes CESAR LOCO CMA 10/08/2016 12:51 [facility] Caffeine Use Grid Caffeine Use : Past Type : Coffee Frequency : Weekly CESAR LOCO CMA 10/08/2016 12:51 [facility] Recreational Drug Use Grid Drug Use : Current Type : Alcohol Route : Oral Frequency : Occasionally CESAR LOCO CMA 10/08/2016 12:[address] [address] [facility] Document Id: [id number] [facility]![address] documented in this encounter Plan of Treatment Not on filedocumented as of this encounter Visit Diagnoses Not on filedocumented in this encounter
--- OUTSIDE RECORDS SUMMARY | 2022-05-23 11:31 | XMS_ITS | Encounter Summary ---
:1935 Author Organization [facility] Address [address] [place] [address] Care Team Providers Name Role Phone Unavailable Primary Care Provider Unavailable Encounter Details Date Type Department Care Team Description 04/04/2016 Hospital Encounter HX [facility] Harman Hodges, C.N.P. [address] [place] [address] (Wo rk) Social History Tobacco [...] JESSICA HOUSTON - 04/04/2016 8:26 CDT Source: [employer] Document Id: [id number] CDT!7 documented in this encounter Miscellaneous Notes Miscellaneous - Conversion, Historical Provider Ser - 04/04/2016 11:59 PM CDT Coding Summary-Paper Based CODING DATE: 04/08/2016 FINAL [place] [facility] STATUS: * Discharged to Home or [...] MENDIOLA Date Saved: 04/08/2016 02:36 pm Source: [employer] Document Id: [id number] documented in this encounter Plan of Treatment Not on filedocumented as of this encounter Visit Diagnoses Not on filedocumented in this encounter
--- OUTSIDE RECORDS SUMMARY | 2022-05-23 11:31 | XMS_ITS | Encounter Summary ---
:1935 Author Organization [facility] Address [address] [place] [id number] Care Team Providers Name Role Phone Unavailable Primary Care Provider Unavailable Encounter Details Date Type Department Care Team Description 01/17/2017 Hospital Encounter HX [facility] ED Lynnette Betts S, P.A.-C. [address] [place] [address] [phone] (Wo rk) Social History Tobacco [...] 01/18/2017 12:30 AM CDT ED Discharge Instructions [address] [address] Name: KATHRYN LEON Date of : 1935 12:00 AM Visit Date: 01/17/2017 8:09 PM [facility] Number: [id number] Address: [address] [place] [phone] Primary Care Provider: PCP, ELSEWHERE IMPORTANT: [facility] in [place] would like to thank you for allowing [...] foods again, start with small amounts of [id number]-mu-acqdbm, low-fat foods, such as applesauce, toast,or crackers. [...] Elevate the head of your bed. ?? [phone] [place] [address]. All rights reserved. This information is not [...] if you dont have one. Go to [email or web address] and click on Create Your Account. Then, follow the directions to complete the online form. Youll be asked for your [facility] number which you can find at the [...] release) 1 tab(s)Oral two times a day [employer] [phone] estradiol topical (Vagifem 10 mcg vaginal tablet) 10 mcg Vaginal 2 times a week Member No [id number] meclizine (meclizine 12.5 mg oral tablet) 1-2 [...] Date Time Provider Signature Date Time Source: [employer] Document Id: [id number] Blake Gamino R.N. - 01/18/2017 12:30 AM CDT ED Depart Summary [facility] Emergency Department Clinical Discharge Summary PERSON INFORMATION Name KATHRYN LEON Age 81 Years 1935 12:00 AM Sex Female Language Nicaraguan PCP PCP, ELSEWHERE Marital Status Visit Id Visit Reason Abdominal pain; Abdominal pain Specialty Enc Type Emergency Med Service Emergency Medicine Referred by Track Group [facility] ED Discharge 01/17/2017 11:43 PM Tracking Id [id number] Checkout 01/17/2017 11:43 PM Checkin 01/17/2017 8:09 PM Acuity 3 -Urgent Dispo Type * Discharged to Home or Self Care Arrival 01/17/2017 8:09 PM Reg Status Complete LOS 000 03:34 Address: [address] [place] [phone] Comment: PROVIDER INFORMATION Provider Role Provider Contact Time GERMAN BETTS PA-C ED Provider 01/17/17 20:34 BLAKE GAMINO BUDGET ACCOUNTANT Nurse 01/17/17 20:44 DIAGNOSIS Pain Abdominal L Lower Quadrant (LLQ) Comment: PATIENT EDUCATION INFORMATION Instructions: Abdominal Pain, Adult Follow up: With: Address: When: Return to Emergency Department Within As Needed Comments: If symptoms worsen. With: Address: When: ELSEWHERE PCP Within As Needed Source: [facility] POWERCHART Document Id: [id number] documented in this encounter Medications at Time [...] GAMINO RN - 01/18/2017 0:29 CDT Source: [facility] Document Id: [id number] CDT!9 Blake Gamino R.NDann - 01/17/2017 11:38 [...] GAMINO RN - 01/18/2017 0:29 CDT Source: [facility] Document Id: [id number] CDT!12 Blake Gamino R.NDann - 01/17/2017 9:05 [...] GAMINO RN - 01/17/2017 21:05 CDT Source: [facility] Document Id: [id number] CDT!11 Blake Gamino R.N. - 01/17/2017 8:26 [...] GAMINO RN - 01/17/2017 20:44 CDT Source: [facility] Document Id: [id number] CDT!13 German Betts P.A.-C. - 01/17/2017 8:18 [...] tablet: 10 mcg, Vaginal, 2xWeek, Member No [id number], 26 tab(s), 2 Refill(s) gabapentin 300 mg [...] (365.9): Resolved.. Surgical history: Upper gastrointestinal endoscopy ([id number]) on 11/30/2013 at 78 Years. MAMMOGRAM (G0202) on 08/25/2013 at 78 Years. Comments: 10/31/2013 11:24 - SUJATHA MAR LPN [place] Normal may resume in sayre Mammogram ([id number]) on 07/15/2012 at 77 Years. Diagnostic colonoscopy ([id number]) on 03/25/2011 at 76 Years. Comments: 03/25/2011 08:49 - SAGRARIO NOLAND MD Sigmoid diverticulosis--not inflamed. Dual-energy X-ray absorptiometry (DXA), bone density study, 1 or more sites; axial skeleton (eg, hips, pelvis, spine).. (36065) in the week of 08/14/2010 at 75 Years. Comments: 10/25/2010 09:40 - CARMELO RHODES Hx: [id number] - BONE DEN HIPS/PEL/SP 08/01/2013 19:17 - Contributor source changed to PowerChart. Mammogram ([id number]) on 07/22/2010 at 75 Years. Mammogram ([id number]) on 06/28/2010 at 75 Years. Laminectomy approach to lumbar spine ([id number]) in 2008 at 74 Years. Colonoscopy ([id number]) on 02/01/2009 at 73 Years. Extracapsular cataract removal with insertion of intraocular lens prosthesis (1 stage procedure), manual or mechanical technique (eg, irrigation and aspiration or phacoemulsification) (83523) on 02/26/2007 at 72 Years. Comments: 10/25/2010 20:26 - PATTI ALMENDAREZ MARKETING RESEARCHER left HC COLONOSCOPY W SNARE REMOVAL TUMOR/POLYP/LESION - 12/31/06 on 12/31/2006 at 71 Years. HC ANTER COLPORRHAPHY,BLAD/VAGINA - 03/22/01 - ANTERIOR POSTERIOR REPAIR on 03/22/2001 at 66 Years. HC FLEX SIGMOIDOSCOPY W/WO JAMES SPEC BY BRUSH/WASH - on 06/14/1999 at 64 Years. Repair of cystocele ([id number]) in 1994 at 60 Years. Reduction mammaplasty () on 02/26/1982 at 47 Years. Hysterectomy ([id number]) on 11/04/1966 at 31 Years. Comments: 03/25/2011 08:51 - SAGRARIO NOLAND MD Vaginal Hemorrhoidectomy, internal and external, single column/group; (66373) on 02/26/1959 at 24 Years. C GLAUCOMA [...] BETTS PA-C On: 01/17/2017 09:06 PM Source: [facility] POWERCHART Document Id: [id number]} Blake Gamino R.N. - 01/17/2017 8:15 PM [...] Medical ; Code: 790.6 ; Contributor System: [employer] ; Last Updated: 11/17/2014 12:51 OPEN HEARTH LABORER ; Life[employer] Status: Active ; Responsible Provider: ALBANIA VARMA APRN, DNP, CNP; Vocabulary: ICD-9-CM Allergic rhinitis, unspecified (ICD-9-CM :477.9 ) Name of Problem: Allergic rhinitis, unspecified ; Onset Date: 1952 ; Recorder: APTTI ALMENDAREZ LPN; Confirmation: Confirmed ; Classification: Nursing [...] System: PowerChart ; Last Updated: 10/25/2010 20:18 OPEN HEARTH LABORER ; Life Cycle Date: 10/25/2010 ; Life Cycle Status: Active ; Responsible Provider: PATTI ALMENDAREZ LPN; Vocabulary: ICD-9-CM Atrophic vaginitis (ICD-9-CM :627.3 ) Name of Problem: Atrophic vaginitis ; Onset Date: 07/27/2012 ;Recorder: ALBANIA VARMA APRN, DNP, CNP; Confirmation: Confirmed ; Classification: Medical ; Code: 627.3 ; Last Updated: 07/27/2012 11:32 OPEN HEARTH LABORER ; Life Cycle Status: Active ; Responsible Provider: ALBANIA VARMA APRN, YURI, IVANA; Vocabulary: ICD-9-CM Bursitis Hip/Trochanertic (ICD-9-CM :726.5 ) Name of Problem: Bursitis Hip/Trochanertic ; Onset Date: 10/20/2011 ; Recorder: ALBANIA VARMA APRN, YURI, IVANA; Confirmation: Confirmed ; Classification: Medical ; Code: 726.5 ; Last Updated: 10/20/2011 9:54 OPEN HEARTH LABORER ; Life Cycle Status: Active ; Responsible [...] ContributorSystem: PowerChart ; Last Updated: 10/25/2010 20:20 OPEN HEARTH LABORER ; Life Cycle Date: 10/25/2010 ; Life [...] Medical ; Code: J38.3 ; Contributor System: [employer] ; Last Updated: 07/10/2015 10:30 CDT ; Life Cycle Status: Active ; Responsible Provider: ALBANIA VARMA APRN, DNP, CNP; Vocabulary: ICD-10-CM Diverticulitis of large intestine (ICD-9-CM :562.11 ) Name of Problem: Diverticulitis of large intestine ; Onset Date: 10/28/2010 ; Recorder: ALBANAI VARMA APRN, DNP, CNP; Confirmation: Confirmed ; Classification: Medical ; Code: 562.11 ; Last Updated: 10/28/2010 16:30 OPEN HEARTH LABORER ; Life Cycle Status: Active; Responsible Provider: ALBANIA VARMA APRN, DNP, CNP; Vocabulary: ICD-9-CM Eye disorder (ICD-9-CM :379.8 ) Name of Problem: Eye disorder ; Recorder: TAMMY ACEVES MD; Confirmation: Confirmed ; Classification: UPDATE NEEDED ; Code: 379.8 ; Contributor System: [employer] ; Last Updated: 11/12/2015 4:13 OPEN HEARTH LABORER ; Life Cycle Date: 01/05/2012 ; Life Cycle Status: Active ; Responsible Provider: TAMMY ACEVES MD; Vocabulary: ICD-9-CM ; Comments: 01/21/2012 9:37 - MATTHEW BORDEN LPN date unknown Fracture of rib (SNOMED CT :41042735 ) Name of Problem: Fracture of rib ; Onset Date: 05/12/2013 ; Recorder: SUJATHA MAR LPN; Confirmation: Confirmed ; Classification: Nursing ; Code: 10459339 ;Contributor System: [employer] ; Last Updated: 06/07/2013 8:10 CDT ; Life Cycle Date: 06/07/2013 ; Life Cycle Status: Active ; Responsible Provider: MAR, SUJATHA R MARKETING RESEARCHER; Vocabulary: SNOMED CT ; Comments: 06/07/2013 8:10 - ISABELA SUJATHA R MARKETING RESEARCHER left side Glaucoma (ICD-9-CM :365.44 ) Name of Problem: Glaucoma ; Onset Date: 1986 ; Recorder: PATTI ALMENDAREZ LPN; Confirmation: Confirmed ; Classification: Nursing ; Code: 365.44 ; Contributor System: PowerChart ; Last Updated: 11/12/2015 4:13 OPEN HEARTH LABORER ; Life Cycle Date: 10/25/2010 ; Life Cycle Status: Active ; Responsible Provider: PATTI ALMENDAREZ LPN; Vocabulary: ICD-9-CM ; Comments: 12/31/2010 12:11 - PATTI ALMENDAREZ LPN date unknown Glaucoma (SNOMED CT :95041692 ) Name of Problem: Glaucoma ; Recorder: TAMMY ACEVES MD; Confirmation: Confirmed ; Classification: Medical ; Code: 36400568 ; Contributor System: [employer] ; Last Updated: 01/05/2012 18:52 CDT ; Life Cycle Date: 01/05/2012 ; Life Cycle Status: Active ; ResponsibleProvider: TAMMY ACEVES MD; Vocabulary: SNOMED CT ; Comments: 01/21/2012 9:37 - MATTHEW BORDEN LPN date unknown Hernia, hiatal (ICD-9-CM :553.3 ) Name of Problem: Hernia, hiatal ; Onset Date: 10/31/2013 ; Recorder: ALBANIA VARMA APRN, DNP, LEAVE COORDINATOR; Confirmation: Confirmed ; Classification: Medical ; Code: 553.3 ; Last Updated: 10/31/2013 11:53 OPEN HEARTH LABORER ; Life Cycle Status: Active ; Responsible Provider: ALBANIA VARMA APRN, YURI, LEAVE COORDINATOR; Vocabulary: ICD-9-CM Osteopenia (ICD-9-CM :733.90 ) Name of Problem: Osteopenia ; Onset Date: 02/26/1987 ; Recorder: PATTI ALMENDAREZ LPN; Confirmation: Confirmed ; Classification: Nursing ; Code: 733.90 ; Contributor System: PowerChart ; Last Updated: 10/25/2010 20:19 OPEN HEARTH LABORER ; Life Cycle Date: 10/25/2010 ; Life Cycle Status: Active ; Responsible Provider: PATTI ALMENDAREZ LPN; Vocabulary: ICD-9-CM Diagnoses(Active) Abdominal pain Date: 01/17/2017 ; Diagnosis Type: Reason For Visit ; Confirmation: Confirmed ; Clinical Dx: Abdominal pain ; Classification: Medical ; Clinical Service: Emergency medicine ; Code: PNED ; Probability: 0 ; Diagnosis Code: [id number] Triage Chief Complaint Description : Pt c/o diffuse intermittent abdominal pain that started one hour ago. Pt states she has hx of diverticulitis and this feels similar. BLAKE GAMINO RN - 01/17/2017 20:49 CDT Information Given By : Patient, EMS Present in Room During Exam/Procedure : EMS, Spouse Mode of Arrival ED : Private vehicle Track : Medical Languages : Nicaraguan Patient Informed of Triage Location : Emergency [...] BLAKE GAMINO RN - 01/17/2017 20:45 CDT Mccoll Coma Eye Opening Response Nabil : Spontaneously Best Verbal Response Nabil : Oriented Best Motor Response Mccoll : Obeys simple commands Nabil Coma Score [...] CDT DCP GENERIC CODE Tracking Group : [facility] ED Tracking Acuity : 3 -Urgent [...] 1: MICONAZOLE NITRATE ; Created By: Contributor_system, [facility]_HX_ALRG_SYS; Reaction Status: Active ; Category: Drug ; Substance: miconazole topical ; Type: Unknown ;Updated By: Contributor_system, [facility]_HX_ALRG_SYS; Reviewed Date: 01/17/2017 20:47 CDT Nuts Estimated [...] GAMINO RN - 01/17/2017 20:45 CDT Source: [facility] Document Id: [id number] CDT!3 documented in this encounter Miscellaneous Notes Miscellaneous - Blake Gamino R.N. - 01/18/2017 12:30 AM CDT Valuables/Belongings Valuables/Belongings Entered On: 01/18/2017 0:30 CDT Performed On: 01/18/2017 0:30 CDT by BLAKE GAMINO RN Valuables/Belongings Belongings Sent Home With : patient and spouse Home Medication Disposition : None brought in with patient BLAKE GAMINO RN - 01/18/2017 0:30 CDT Source: [facility] Document Id: [id number] CDT!4 Miscellaneous - Conversion, Historical Provider Ser - 01/17/2017 11:43 PM CDT Coding Summary-Paper Based CODING DATE: 01/26/2017 FINAL [place] [facility] STATUS: * Discharged [...] MORALES Date Saved: 01/26/2017 12:25 pm Source: [facility] Document Id: [id number] Miscellaneous - Blake Gamino, R.N. - 01/17/2017 [...] Nursing Notes ED Primary Assessment,01/17/17 20:15,BLAKE GAMINO BUDGET ACCOUNTANT Pain Assessment,01/17/17 21:05,BLAKE GAMINO RN [place] Nursing Assessment : Triage and 1-2 nursing assessments Lynx Disposition : Discharge Disposition RTF : discharge Lynx Total Points with Diagnosis Control : 10 Lynx Visit Level : 84903 Level 4 Treatments Prior to Arrival : None BLAKE GAMINO RN - 01/18/2017 0:30 CDT Source: [facility] POWERCHART Document Id: [id number] CDT!19 documented in this encounter Plan of [...] P.A.-C. LAB BLOOD ADD-ON Performing Organization Address City/[facility] Code Phon e Number POWERCHART CBC with Differential (01/17/2017 8:25 PM CDT) P athologist Signature Leukocytes 4.3 3.4 - 10.5 POWERCHART X109L Erythrocytes 4.17 3.90 - 5.03 POWERCHART A2862Z Hemoglobin 12.7 12.0 - 15.5 POWERCHART GDL Hematocrit 36.8 34.9 - 44.5 POWERCHART MCV 88.2 81.6 - 98.3 POWERCHART FL HX RDW 12.6 11.9 - 15.5 POWERCHART Platelet Count 150 150 - 450 POWERCHART X109L Specimen (Source) Anatomical Collection Method Collection Time Re ceived Time Location / / Volume Laterality Blood 01/17/2017 8:25 PM CDT German Woodward.-C. LAB BLOOD ADD-ON Performing Organization Address [facility] Phon e Number POWERCHART (ABNORMAL) Lactate (01/17/2017 8:25 PM CDT) P athologist Signature Lactate, P 2.9 (H) 0.5 - 2.2 POWERCHART MMOLL Specimen (Source) Anatomical Collection Method Collection Time Re ceived Time Location / / Volume Laterality Blood 01/17/2017 8:25 PM CDT German S Alpesh CostaA.-C. LAB BLOOD NON ADD-ON Performing Organization Address [facility] Code Phon e Number POWERCHART (ABNORMAL) [...] MMOLL HXeGFR (MDRD) 51 (L) >=60 POWERCHART [id number] eGFR >60 >=60 POWERCHART Black/ [id number] Thai Glucose 135 70 - 139 POWERCHART MGDL Specimen (Source) Anatomical Collection Method Collection Time Re ceived Time Location / / Volume Laterality Blood 01/17/2017 8:25 PM CDT German Betts P.A.-C. LAB BLOOD ADD-ON Performing Organization Address City/State/ZIP Code Phon e Number POWERCHART documented in this encounter Visit Diagnoses Not on filedocumented in this encounter
--- OUTSIDE RECORDS SUMMARY | 2022-05-23 11:31 | XMS_ITS | Encounter Summary ---
:1935 Author Organization [facility] Address [address] [place] [address] Care Team Providers Name Role Phone Unavailable Primary Care Provider Unavailable Encounter Details Date Type Department Care Team Description 09/24/2016 [facility] Cielo Carlson M.D. [address] [place] [phone] (Wo rk) Social History Tobacco Use [...]
--- OUTSIDE RECORDS SUMMARY | 2022-05-23 11:31 | XMS_ITS | Encounter Summary ---
:1935 Author Organization [facility] Address [address] [place] [address] Care Team Providers Name Role Phone Unavailable Primary Care Provider Unavailable Encounter Details Date Type Department Care Team Description 10/01/2016 Hospital Encounter HX [facility] Juan Goyal SURGCLINI M.D. [address] [place] [phone] (Wo rk) Social History Tobacco Use Types Packs/Day Years Used Date Smoking Tobacco: Never Sex Assigned at Date Recorded Not on file documented as of this encounter Last Filed Vital Signs Vital Sign Reading Time Taken Comments Blood Pressure 128/76 10/01/2016 2:07 PM BANDER AND CELLOPHANER MACHINE HELPER Pulse 74 10/01/2016 2:07 PM BANDER AND CELLOPHANER MACHINE HELPER Temperature - - Respiratory Rate 16 10/01/2016 2:07 PM BANDER AND CELLOPHANER MACHINE HELPER Oxygen Saturation - - Inhaled Oxygen Concentration [...] as of this encounter Consult Notes Juan Goyal M.D. - 10/01/2016 1:51 PM CST [id number] CHIEF COMPLAINT/REASON FOR VISIT I was asked [...] was seen by Antonia Aldrich CNP, at [facility] on 09/25/2016. At that visit itwas noted [...] Kathryn be seen in Gastroenterology Clinic at [facility] in [place] for further evaluation. I would be interested to see what their interpretation of possible pain sources would be. Kathryn can follow up with me on an as-needed basis or call with any questions or concerns. This was a 30 minute clinic visit. I spent 20 minutes counseling the patient. Juan Goyal M.D./farhat cc: Antonia Aldrich APRN, WIRE FENCE BUILDER [address] [place] [address] Electronically Signed By: JUAN GOYAL MD On: 10/02/2016 02:09 PM Source: [facility] MHSDOLBEYNONRADSYS Document Id: [id number] ER AND CELLOPHANER MACHINE HELPER documented in this encounter Miscellaneous Notes Miscellaneous - Chantal Aceves R.N. - 10/01/2016 2:07 PM CST Adult [employer] Intake/History Adult [employer] Intake/History Entered On: 10/01/2016 14:10 BANDER AND CELLOPHANER MACHINE HELPER Performed On: 10/01/2016 14:07 BANDER AND CELLOPHANER MACHINE HELPER by CHANTAL ACEVES chipper feeder Chief Complaint : abd pain for months, [...] % CHANTAL ACEVES RN - 10/01/2016 14:07 BANDER AND CELLOPHANER MACHINE HELPER General Info Information Given By : Patient Preferred Communication Mode : Verbal Languages : Albanian Is Patient Female and 13-50 no hysterectomy : No CHANTAL CAEVES RN - 10/01/2016 14:07 BANDER AND CELLOPHANER MACHINE HELPER Subjective Pain Symptoms : Yes CHANTAL ACEVES RN - 10/01/2016 14:07 BANDER AND CELLOPHANER MACHINE HELPER Pain Scale Pain Scale Verbal 0-10 : Open CHANTAL ACEVES RN - 10/01/2016 14:07 BANDER AND CELLOPHANER MACHINE HELPER Pain Pain Assessment Grid Pain 1 Location : Abdomen CHANTAL ACEVES RN - 10/01/2016 14:07 BANDER AND CELLOPHANER MACHINE HELPER Dependent Habits Exposure to Tobacco Smoke : Care provider denies smoking in home, Other: never Smoking Status : Never smoker Tobacco 2A : No Tobacco Use/Currently Using : No Tobacco Use/Last 30 Days : No Tobacco Use/Last 12 months : No CHANTAL ACEVES RN - 10/01/2016 14:07 BANDER AND CELLOPHANER MACHINE HELPER Caffeine Use Grid Caffeine Use : Current Type : Coffee Frequency : Weekly CHANTAL ACEVES RN - 10/01/2016 14:07 BANDER AND CELLOPHANER MACHINE HELPER Recreational Drug Use Grid Drug Use : None CHANTAL ACEVES RN - 10/01/2016 14:07 BANDER AND CELLOPHANER MACHINE HELPER [facility] Document Id: [id number] BANDER AND CELLOPHANER MACHINE HELPER!41 ER AND CELLOPHANER MACHINE HELPER documented in this encounter Plan of Treatment Not on filedocumented as of this encounter Visit Diagnoses Not on filedocumented in this encounter
--- OUTSIDE RECORDS SUMMARY | 2022-05-23 11:31 | XMS_ITS | Encounter Summary ---
:1935 Author Organization [facility] Address [address] [place] [id number] Care Team Providers Name Role Phone Unavailable Primary Care Provider Unavailable Encounter Details Date Type Department Care Team Description 09/27/2015 Hospital Encounter [facility]X [facility] ED Saulo Zamorano III, M.D. [address] [place] [phone] (Wo rk) Social History Tobacco Use Types Packs/Day Years Used Date Smoking Tobacco: Never Assessed Sex Assigned at Date Recorded Not on file documented as of this encounter Last Filed Vital Signs Vital Sign Reading Time Taken Comments Blood Pressure 137/78 09/27/2015 10:56 AM TRAILER CHIEF Pulse 66 09/27/2015 10:56 AM TRAILER CHIEF Temperature - - Respiratory Rate 18 09/27/2015 10:56 AM TRAILER CHIEF Oxygen Saturation - - Inhaled Oxygen Concentration - - Weight - - Height 162 cm (5' 3.78) 09/27/2015 10:56 AM TRAILER CHIEF Body Mass Index - - documented in this encounter Discharge Summaries Cathie Kay R.NDann - 09/27/2015 12:16 PM CST ED Discharge Instructions [address] [address] Name: KATHRYN LEON Date of : 1935 12:00 AM Visit Date: 09/27/2015 10:41 AM [facility] Number: [id number] Address: [address] [place], [place] [address]on [facility] [id number] Primary Care Provider: HUNTER SEQUEIRA MD IMPORTANT: [facility] in [place] would like to thank you for allowing us to assist you with your healthcare needs. The following includes patient education materials and informationregarding your injury/illness. Diagnosis: 1:Vertigo Benign Positional (BPV) Jeff Follow-Up Instructions: With: Address: When: Physical therapy In 1 day 09/28/2015 With: Address: When: HUNTER SEQUEIRA [address] [place] [address] Business (1) Within As Needed Your Upcoming [...] nausea, vomiting and vertigo, you may use knkv-kcc-ldosggy motion sickness pills, such as meclizine (Bonine, [...] with speech or vision ?? Seizure ?? [id number] [facility], [address] [place] [address], [place] [address]. All rights reserved. This information is not [...] if you dont have one. Go to [email or web address] and click on Create Your Account. Then, follow the directions to complete the online fo rm. Youll be asked for your [facility] number which you can find at [...] but referred patient to Dr. Mosley at [facility] fluticasone nasal (Flonase 0.05 mg/inh nasal spray) 2 spray(s) Nostrils(Both) once a day estradiol topical (Vagifem 10 mcg vaginal tablet) 10 mcg Vaginal 2 times a week Member No [phone] meclizine (meclizine 12.5 mg oral tablet) 1-2 tab(s) Oral three times a day as needed for Dizziness fexofenadine-pseudoephedrine (Rochelle-D 12 Hour 60 mg-120 mg oral tablet, extended release) 1 tab(s)Oral two times a day jasmynLeadiDjanki beal [phone] ferrous sulfate (ferrous sulfate 325 mg (65 [...] document has images extracted. Please consider using Invoice[employer] for all your patient education needs. Source: [employer] Document Id: [id number] LER CHIEF Cathie Kay R.N. - 09/27/2015 12:16 PM CST ED Depart Summary [facility] Emergency Department Clinical Discharge Summary PERSON INFORMATION Name KATHRYN LEON Age 80 Years 1935 12:00 AM Sex Female Language Jordanian PCP HUNTER SEQUEIRA MD Marital Status Visit Id Visit Reason Vertigo - recurrent; Vertigo Specialty Enc Type Emergency Med Service Emergency Medicine Referred by Track Group [facility] ED Discharge 09/27/2015 12:15 PM Tracking Id [id number] Checkout 09/27/2015 12:15 PM Checkin 09/27/2015 10:41 AM Acuity 4 -Less Urgent Dispo Type * Discharged to Home or Self Care Arrival 09/27/2015 10:41 AM Reg Status Complete LOS 000 01:34 Address: [address] [place] [phone] Comment: PROVIDER INFORMATION Provider Role Provider Contact Time CATHIE KAY PARTS SALES REPRESENTATIVE Nurse 09/27/15 10:50 DIAGNOSIS 1:Vertigo Benign Positional (BPV) Jeff Comment: PATIENT EDUCATION INFORMATION Instructions: BENIGN POSITIONAL VERTIGO Follow up: With: Address: When: Physical therapy In 1 day 09/28/2015 With: Address: When: HUNTER SEQUEIRA [address] [phone] Business (1) Within As Needed Source: [employer] Document Id: [id number] LER CHIEF documented in this encounter Medications at Time [...] ED Disposition Summary Entered On: 09/27/2015 12:15 TRAILER CHIEF Performed On: 09/27/2015 12:15 TRAILER CHIEF by CATHIE KAY RN ED Disposition Summary Accompanied By : Spouse Mode of Discharge : Ambulatory Transportation : Private vehicle Discharge From ED With : Home Med List Printed Discharge Instructions Given to Patient : Yes Patient Status at Discharge from ED : Improved CATHIE KAY RN - 09/27/2015 12:15 TRAILER CHIEF Source: [employer] Document Id: [id number] TRAILER CHIEF!8 LER CHIEF Cathie Kay R.N. - 09/27/2015 12:15 PM CST ED Pain Assessment ED Pain Assessment Entered On: 09/27/2015 12:15 TRAILER CHIEF Performed On: 09/27/2015 12:15 TRAILER CHIEF by CATHIE KAY RN Pain Assessment Pain Symptoms : No CATHIE KAY RN - 09/27/2015 12:15 TRAILER CHIEF Source: [employer] Document Id: [id number] TRAILER CHIEF!3 LER CHIEF Saulo Zamorano M.D. - 09/27/2015 11:22 AM [...] Note : Chief Complaint Description 09/27/2015 10:56 TRAILER CHIEF Chief Complaint Description 80 year old female [...] tablet: 10 mcg, Vaginal, 2xWeek, Member No [id number], 26 tab(s) gabapentin 300 mg oral capsule: [...] Surgical history: Upper gastrointestinal endoscopy (SNOMED CT 423323667) performed by GERHARD ROMAN MD on 11/30/2013 at 78 Years. MAMMOGRAM (CPT4 G0202) on 08/25/2013 at 78 Years. Comments: 10/31/2013 11:24 - SUJATHA MAR LPN [place] Normal may resume in [place] Mammogram (SNOMED CT [id number]) on 07/15/2012 at 77 Years. Diagnostic colonoscopy (SNOMED CT 498259811) performed by SAGRARIO NOLAND MD on 03/25/2011 at 76Years. Comments: 03/25/2011 08:49 - SAGRARIO NOLAND MD Sigmoid diverticulosis--not inflamed. Dual-energy X-ray absorptiometry (DXA), bone density study, 1 or more sites; axial skeleton (eg, hips, pelvis, spine).. (CPT4 29415) in the week of 08/14/2010 at 75 Years. Comments: 10/25/2010 09:40 - CARMELO RHODES Hx: [id number] - BONE DEN HIPS/PEL/SP 08/01/2013 19:17 - Contributor source changed to [employer]. Mammogram (SNOMED CT [id number]) performed by ALBANIA VARMA RN, CHART CHANGER on 07/22/2010 at 75 Years. Mammogram (SNOMED CT 769157074) on 06/28/2010 at 75 Years. Laminectomy approach to lumbar spine (SNOMED CT 705984315) in 2008 at 74 Years. Colonoscopy (SNOMED CT 047546316) on 02/01/2009 at 73 Years. Extracapsular cataract removal with insertion of intraocular lens prosthesis (1 stage procedure), manual or mechanical technique (eg, irrigation and aspiration or phacoemulsification) (CPT4 93236) on 02/26/2007 at 72 Years. Comments: 10/25/2010 20:26 - PATTI ALMENDAREZ EXPRESSIVE THERAPIST left HC COLONOSCOPY W SNARE REMOVAL TUMOR/POLYP/LESION - 12/31/06 on 12/31/2006 at 71 Years. HC ANTER COLPORRHAPHY,BLAD/VAGINA - 03/22/01 - ANTERIOR POSTERIOR REPAIR on 03/22/2001 at 66 Years. HC FLEX SIGMOIDOSCOPY W/WO JAMES SPEC BY BRUSH/WASH - on 06/14/1999 at 64 Years. Repair of cystocele (SNOMED CT 796106906) in 1994 at 60 Years. Reduction mammaplasty (CPT4 26900) on 02/26/1982 at 47 Years. Hysterectomy (SNOMED CT 181738588) on 11/04/1966 at 31 Years. Comments: 03/25/2011 08:51 - SAGRARIO NOLAND MD Vaginal Hemorrhoidectomy, internal and external, single column/group; (CPT4 46884) on 02/26/1959 at 24 Years. C GLAUCOMA [...] disc / 722.10 / Confirmed Glaucoma / [id number] / Confirmed Eye disorder / 379.8 / [...] 627.3 / Confirmed Fracture of rib / 52050670 / Confirmed Chest wall pain* / 786.52 / Confirmed Hernia, hiatal / 553.3 / Confirmed Abnormal Liver Function Test / 790.6 / Confirmed. Physical Examination Vital Signs: Vital Signs 09/27/2015 10:56 TRAILER CHIEF Temperature Core 36.5 DegC Peripheral Pulse Rate 66 /min Respiratory Rate 18 /min SpO2 98 % Systolic Blood Pressure 137 mmHg Diastolic Blood Pressure 78 mmHg Mean Arterial Pressure 98 mmHg BP Location Left upper , Measurements 09/27/2015 10:56 TRAILER CHIEF Height 162 cm Height Source Stated Dosing [...] Evaluate & Treat (Order Processing): 09/27/2015 12:00 TRAILER CHIEF, BPPV. Impression and Plan Diagnosis Vertigo Benign Positional (BPV) Jeff (Discharge, Medical) Plan Condition: Improved. Disposition: Medically cleared, Discharged: to home. Patient was given the following educational materials: BENIGN POSITIONAL VERTIGO. Follow up with: Physical therapy In 1 day 09/28/2015; HUNTER SEQUEIRA Within As Needed. Counseled: Patient, Discussed results and plan with patient in detail and they expressed understanding and agreement.. Orders: Launch Orders Patient Care: Discharge ED Patient (Order Processing): 09/27/2015 12:01 TRAILER CHIEF, Once. Electronically Signed By: SAULO ZAMORANO III, MD On: 09/27/2015 12:01 PM Modified by and Electronically Signed by: SAULO ZAMORANO III, MD On: 09/27/2015 12:01 PM Source: [facility] [employer] Document Id: {[id number]} LER CHIEF Cathie Kay RChelsey - 09/27/2015 10:59 AM CST ED Primary Assessment Document Has Been Updated ED Primary Assessment Entered On: 09/27/2015 11:01 TRAILER CHIEF Performed On: 09/27/2015 10:59 TRAILER CHIEF by CATHIE KAY RN Reason For Visit (As Of: 09/27/2015 11:01:19 TRAILER CHIEF) Problems(Active) Abnormal Liver Function Test (ICD-9-CM :790.6 ) Name of Problem: Abnormal Liver Function Test ; Onset Date: 10/05/2014 ; Recorder: ALBANIA VARMA RN, CHART CHANGER; Confirmation: Confirmed ; Classification: Medical ; Code: 790.6 ; Contributor System: [employer] ; Last Updated: 11/17/2014 12:51 TRAILER CHIEF ; Life Cycle Status: Active ; Responsible [...] System: Power[employer] ; Last Updated: 10/25/2010 20:18 TRAILER CHIEF ; Life Cycle Date: 10/25/2010 ; Life Cycle Status: Active ; Responsible Provider: PATTI ALMENDAREZ LPN; Vocabulary: ICD-9-CM Atrophic vaginitis (ICD-9-CM :627.3 ) Name of Problem: Atrophic vaginitis ; Onset Date: 07/27/2012 ;Recorder: ALBANIA VARMA RN, CNP; Confirmation: Confirmed ; Classification: Medical ; Code: 627.3 ; Last Updated: 07/27/2012 11:32 TRAILER CHIEF ; Life Cycle Status: Active ; Responsible Provider: ALBANIA VARMA CNP; Vocabulary: ICD-9-CM Bursitis Hip/Trochanertic (ICD-9-CM :726.5 ) Name of Problem: Bursitis Hip/Trochanertic ; Onset Date: 10/20/2011 ; Recorder: ALBANIA VARMA RN, CNP; Confirmation: Confirmed ; Classification: Medical ; Code: 726.5 ; Last Updated: 10/20/2011 9:54 TRAILER CHIEF ; Life Cycle Status: Active ; Responsible Provider: ALBANIA VARMA RN, CNP; Vocabulary: ICD-9-CM Cataract NOS (ICD-9-CM :366.9 ) Name of Problem: Cataract NOS ; Onset Date: 1991 ; Recorder: PATTI ALMENDAREZ LPN; Confirmation: Confirmed ; Classification: Nursing ; Code: 366.9 ; Contributor System: [facility] ; Last Updated: 01/21/2011 10:04 CDT ; Life Cycle Date: 10/25/2010 ; Life Cycle Status: Active ; Responsible Provider: PATTI ALMENDAREZ LPN; Vocabulary: ICD-9-CM ; Comments: 12/31/2010 12:11 - PATTI ALMENDAREZ LPN date unknown Celiac Disease (ICD-9-CM :579.0 ) Name of Problem: Celiac Disease ; Onset Date: 02/26/2007 ; Recorder: PATTI ALMENDAREZ LPN; Confirmation: Confirmed ; Classification: Nursing ; Code: 579.0 ; ContributorSystem: [employer] ; Last Updated: 10/25/2010 20:20 TRAILER CHIEF ; Life Cycle Date: 10/25/2010 ; Life [...] Medical ; Code: J38.3 ; Contributor System: [employer] ; Last Updated: 07/10/2015 10:30 CDT ; Life Cycle Status: Active ; Responsible Provider: ALBANIA VARMA RN, CNP; Vocabulary: ICD-10-CM Diverticulitis of large intestine (ICD-9-CM :562.11 ) Name of Problem: Diverticulitis of large intestine ; Onset Date: 10/28/2010 ; Recorder: KOJO, ALBANIA L RN, CHART CHANGER; Confirmation: Confirmed ; Classification: Medical ; Code: 562.11 ; Last Updated: 10/28/2010 16:30 TRAILER CHIEF ; Life Cycle Status: Active ; Respo nsible Provider: ALBANIA VARMA RN, CHART CHANGER; Vocabulary: ICD-9-CM Eye disorder (ICD-9-CM :379.8 ) [...] date unknown Fracture of rib (SNOMED CT :06537809 ) Name of Problem: Fracture of rib ; Onset Date: 05/12/2013 ; Recorder: SUJATHA MAR LPN; Confirmation: Confirmed ; Classification: Nursing ; Code: 87921797 ;Contributor System: Power[employer] ; Last Updated: 06/07/2013 [...] ALMENDAREZ LPN date unknown Glaucoma (SNOMED CT :69361414 ) Name of Problem: Glaucoma ; Recorder: TAMMY ACEVES MD; Confirmation: Confirmed ; Classification: Medical ; Code: 61587859 ; Contributor System: Power[employer] ; Last Updated: [...] Code: 553.3 ; Last Updated: 10/31/2013 11:53 TRAILER CHIEF ; Life Cycle Status: Active ; Responsible Provider: ALBANIA VARMA RN, CNP; Vocabulary: ICD-9-CM 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 (ICD-9-CM :722.10 ) Name of Problem: 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 ; Recorder: ALBANIA VARMA RN, CNP; Confirmation: Confirmed ; Classification: Medical ; Code: 722.10 ; Contributor System: [facility] ; Last Updated: 11/04/2010 9:49 TRAILER CHIEF ; Life Cycle Date: 11/04/2010 ; Life Cycle Status: Active ; Responsible Provider: ALBANIA VARMA RN, CNP; Vocabulary: ICD-9-CM ; Comments: 12/31/201012:11 - PATTI ALMENDAREZ LPN date unknown Osteopenia (ICD-9-CM :733.90 ) Name of Problem: Osteopenia ; Onset Date: 02/26/1987 ; Recorder: PATTI ALMENDAREZ LPN; Confirmation: Confirmed ; Classification: Nursing ; Code: 733.90 ; Contributor System: Power[employer] ; Last Updated: 10/25/2010 20:19 TRAILER CHIEF ; Life Cycle Date: 10/25/2010 ; Life Cycle Status: Active ; Responsible Provider: PATTI ALMENDAREZ LPN; Vocabulary: ICD-9-CM Diagnoses(Active) Vertigo - recurrent Date: 09/27/2015 ; Diagnosis Type: Reason For Visit ; Confirmation: Complaint of; Clinical Dx: Vertigo - recurrent ; Classification: Medical ; Clinical Service: Emergency medicine ; Code: PNED ; Probability: 0 ; Diagnosis Code: [id number] Triage Chief Complaint Description : see triage note Mode of Arrival ED : Private vehicle Track : Medical Languages : Jordanian Treatments Prior to Arrival : None Is Patient Female and 13-50 no hysterectomy : CATHIE Arredondo RN - 09/27/2015 10:59 TRAILER CHIEF Pain Assessment Pain Symptoms : No CATHIE KAY RN - 09/27/2015 10:59 TRAILER CHIEF Respiratory Airway : Patent Respirations : Unlabored Respiratory Pattern : Regular CATHIE KAY RN - 09/27/2015 10:59 TRAILER CHIEF Cardiovascular Heart Rhythm : Regular Skin Color : Normal for ethnicity Skin Description : Dry Skin Temperature : Warm CATHIE KAY RN - 09/27/2015 10:59 TRAILER CHIEF Neurological Last Well Time Known : Yes Last Known Well Time : 09/27/2015 9:15 TRAILER CHIEF Level of Consciousness : Alert Orientation : Oriented x 3 Characteristics of Speech : Appropriate for age Neuro Patient Stated Symptoms : Dizziness Gait : Unable to assess Loss of Consciousness : CATHIE Arredondo RN - 09/27/2015 10:59 TRAILER CHIEF ED Psychosocial Affect/Behavior : Calm Domestic Abuse Concerns : None Behavioral Health Screen/Safety Assmt : No CATHIE KAY RN - 09/27/2015 10:59 TRAILER CHIEF Gastrointestinal Nutrition ED : Adequate CATHIE KAY RN - 09/27/2015 10:59 TRAILER CHIEF Musculoskeletal Fall Prevention Education Provided : CATHIE WYATT RN - 09/27/2015 10:59 TRAILER CHIEF Social Habits Exposure to Tobacco Smoke : Care provider denies smoking in home, Other: never Smoking Status : Never smoker Tobacco 2A : No Tobacco Use/Currently Using : No Tobacco Use/Last 30 Days : No Tobacco Use/Last 12 months : No CATHIE KAY RN - 09/27/2015 10:59 TRAILER CHIEF Alcohol Use Grid Alcohol Use : Yes Type : Liquor Frequency : Occasionally CATHIE KAY RN - 09/27/2015 10:59 TRAILER CHIEF Recreational Drug Use Grid Drug Use : None CATHIE KAY RN - 09/27/2015 10:59 TRAILER CHIEF Source: [facility] Document Id: [id number] TRAILER CHIEF!51 LER CHIEF Cathie Kay R.N. - 09/27/2015 10:56 AM CST ED Triage Assessment Document Has Been Updated ED Triage Assessment Entered On: 09/27/2015 10:59 TRAILER CHIEF Performed On: 09/27/2015 10:56 TRAILER CHIEF by CATHIE KAY RN Reason For Visit (As Of: 09/27/2015 10:59:39 TRAILER CHIEF) Problems(Active) Abnormal Liver Function Test (ICD-9-CM :790.6 ) Name of Problem: Abnormal Liver Function Test ; Onset Date: 10/05/2014 ; Recorder: ALBANIA VARMA RN, CNP; Confirmation: Confirmed ; Classification: Medical ; Code: 790.6 ; Contributor System: PowerChart ; Last Updated: 11/17/2014 12:51 TRAILER CHIEF ; Life Cycle Status: Active ; Responsible [...] System: PowerChart ; Last Updated: 10/25/2010 20:18 TRAILER CHIEF ; Life Cycle Date: 10/25/2010 ; Life Cycle Status: Active ; Responsible Provider: PATTI ALMENDAREZ LPN; Vocabulary: ICD-9-CM Atrophic vaginitis (ICD-9-CM :627.3 ) Name of Problem: Atrophic vaginitis ; Onset Date: 07/27/2012 ;Recorder: ALBANIA VARMA RN, CNP; Confirmation: Confirmed ; Classification: Medical ; Code: 627.3 ; Last Updated: 07/27/2012 11:32 TRAILER CHIEF ; Life Cycle Status: Active ; Responsible Provider: ALBANIA VARMA CNP; Vocabulary: ICD-9-CM Bursitis Hip/Trochanertic (ICD-9-CM :726.5 ) Name of Problem: Bursitis Hip/Trochanertic ; Onset Date: 10/20/2011 ; Recorder: ALBANIA VARMA RN, CNP; Confirmation: Confirmed ; Classification: Medical ; Code: 726.5 ; Last Updated: 10/20/2011 9:54 TRAILER CHIEF ; Life Cycle Status: Active ; Responsible Provider: ALBANIA VARMA RN, CNP; Vocabulary: ICD-9-CM Cataract NOS (ICD-9-CM :366.9 ) Name of Problem: Cataract NOS ; Onset Date: 1991 ; Recorder: PATTI ALMENDAREZ LPN; Confirmation: Confirmed ; Classification: Nursing ; Code: 366.9 ; Contributor System: [facility] ; Last Updated: 01/21/2011 10:04 CDT ; Life Cycle Date: 10/25/2010 ; Life Cycle Status: Active ; Responsible Provider: PATTI ALMENDAREZ LPN; Vocabulary: ICD-9-CM ; Comments: 12/31/2010 12:11 - PATTI ALMENDAREZ LPN date unknown Celiac Disease (ICD-9-CM :579.0 ) Name of Problem: Celiac Disease ; Onset Date: 02/26/2007 ; Recorder: PATTI ALMENDAREZ LPN; Confirmation: Confirmed ; Classification: Nursing ; Code: 579.0 ; ContributorSystem: [employer] ; Last Updated: 10/25/2010 20:20 TRAILER CHIEF ; Life Cycle Date: 10/25/2010 ; Life [...] Medical ; Code: J38.3 ; Contributor System: [facility] ; Last Updated: 07/10/2015 10:30 CDT ; Life Cycle Status: Active ; Responsible Provider: ALBANIA VARMA RN, CNP; Vocabulary: ICD-10-CM Diverticulitis of large intestine (ICD-9-CM :562.11 ) Name of Problem: Diverticulitis of large intestine ; Onset Date: 10/28/2010 ; Recorder: ALBANIA VARMA RN, CNP; Confirmation: Confirmed ; Classification: Medical ; Code: 562.11 ; Last Updated: 10/28/2010 16:30 TRAILER CHIEF ; Life Cycle Status: Active ; Respo nsible Provider: ALBANIA VARMA RN, CNP; Vocabulary: ICD-9-CM Eye disorder (ICD-9-CM :379.8 ) Name of Problem: Eye disorder ; Recorder: TAMMY ACEVES MD; Confirmation: Confirmed ; Classification: UPDATE NEEDED ; Code: 379.8 ; Contributor System: [employer] ; Last Updated: 01/05/2012 19:00 CDT ; Life Cycle Date: 01/05/2012 ; Life Cycle Status: Active ; Responsible Provider: TAMMY ACEVES MD; Vocabulary: ICD-9-CM ; Comments: 01/21/2012 9:37 - MATTHEW BORDEN LPN date unknown Fracture of rib (SNOMED CT :76209554 ) Name of Problem: Fracture of rib ; Onset Date: 05/12/2013 ; Recorder: SUJATHA MAR LPN; Confirmation: Confirmed ; Classification: Nursing ; Code: 09610508 ;Contributor System: [employer] [employer] ; Last Updated: 06/07/2013 8:10 CDT ; Life Cycle Date: 06/07/2013 ; Life Cycle Status: Active ; Responsible Provider: SUJATHA MAR LPN; Vocabulary: SNOMED CT ; Comments: 06/07/2013 8:10 - SUJATHA MAR LPN left side Glaucoma (ICD-9-CM :365.44 ) Name of Problem: Glaucoma ; Onset Date: 1986 ; Recorder: ERICKSON, PATTI L EXPRESSIVE THERAPIST; Confirmation: Confirmed ; Classification: Nursing ; Code: 365.44 ; Contributor System: Power[employer] ; Last Updated: 01/21/2011 10:05 CDT ; Life Cycle Date: 10/25/2010 ; Life Cycle Status: Active ; Responsible Provider: PATTI ALMENDAREZ LPN; Vocabulary: ICD-9-CM ; Comments: 12/31/2010 12:11 - ERICKSONWILEYI L EXPRESSIVE THERAPIST date unknown Glaucoma (SNOMED CT :98938161 ) Name of Problem: Glaucoma ; Recorder: TAMMY ACEVES MD; Confirmation: Confirmed ; Classification: Medical ; Code: 38179989 ; Contributor System: Power[employer] ; Last Updated: 01/05/2012 18:52 CDT ; Life Cycle Date: 01/05/2012 ; Life Cycle Status: Active ; ResponsibleProvider: TAMMY ACEVES MD; Vocabulary: SNOMED CT ; Comments: 01/21/2012 9:37 - MATTHEW BORDEN EXPRESSIVE THERAPIST date unknown Hernia, hiatal (ICD-9-CM :553.3 ) Name of Problem: Hernia, hiatal ; Onset Date: 10/31/2013 ; Recorder: ALBANIA VARMA RN, CNP; Confirmation: Confirmed ; Classification: Medical ; Code: 553.3 ; Last Updated: 10/31/2013 11:53 TRAILER CHIEF ; Life Cycle Status: Active ; Responsible Provider: ALBANIA VARMA RN, CNP; Vocabulary: ICD-9-CM 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 (ICD-9-CM :722.10 ) Name of Problem: 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 ; Recorder: ALBANIA VARMA RN, CNP; Confirmation: Confirmed ; Classification: Medical ; Code: 722.10 ; Contributor System: PowerChart ; Last Updated: 11/04/2010 9:49 TRAILER CHIEF ; Life Cycle Date: 11/04/2010 ; Life Cycle Status: Active ; Responsible Provider: ALBANIA VARMA RN, CNP; Vocabulary: ICD-9-CM ; Comments: 12/31/201012:11 - PATTI ALMENDAREZ EXPRESSIVE THERAPIST date unknown Osteopenia (ICD-9-CM :733.90 ) Name of Problem: Osteopenia ; Onset Date: 02/26/1987 ; Recorder: PATTI ALMENDAREZ LPN; Confirmation: Confirmed ; Classification: Nursing ; Code: 733.90 ; Contributor System: [employer] ; Last Updated: 10/25/2010 20:19 TRAILER CHIEF ; Life Cycle Date: 10/25/2010 ; Life Cycle Status: Active ; Responsible Provider: PATTI ALMENDAREZ LPN; Vocabulary: ICD-9-CM Diagnoses(Active) Vertigo - recurrent Date: 09/27/2015 ; Diagnosis Type: Reason For Visit ; Confirmation: Complaint of; Clinical Dx: Vertigo - recurrent ; Classification: Medical ; Clinical Service: Emergency medicine ; Code: PNED ; Probability: 0 ; Diagnosis Code: [id number] Triage Chief Complaint Description : 80 year old female admitted to ER wtih reoccuring vertig. States had vertigo 6 months ago and the symptoms are the same Information Given By : Patient Accompanied By : Spouse Mode of Arrival ED : Private vehicle Track : Medical Languages : Jordanian Vital Signs Assessed : Yes GCS Assessed : Yes Treatments Prior to Arrival : None Is Patient Female and 13-50 no hysterectomy : No CATHIE KAY RN - 09/27/2015 10:56 TRAILER CHIEF Vital Signs Temperature Core : 36.5 DegC(Converted [...] lb CATHIE KAY RN - 09/27/2015 10:56 TRAILER CHIEF Nabil Coma Eye Opening Response Nabil : Spontaneously Best Verbal Response Nabil : Oriented Best Motor Response Nabil : Obeys simple commands Nabil Coma Score : 15 CATHIE KAY RN - 09/27/2015 10:56 TRAILER CHIEF Pain Assessment Pain Symptoms : No CATHIE KAY RN - 09/27/2015 10:56 TRAILER CHIEF ED Physician Notification Time ED Physician Notification Time : 09/27/2015 10:59 TRAILER CHIEF CATHIE KAY RN - 09/27/2015 10:56 TRAILER CHIEF CAMI CAMI Level 1 : No CAMI Level 2 : No CAMI Level 3 : One CATHIE KAY RN - 09/27/2015 10:56 TRAILER CHIEF DCP GENERIC CODE Tracking Acuity : 4 -Less Urgent Tracking Group : [facility] ED CATHIE KAY RN - 09/27/2015 10:56 TRAILER CHIEF Allergy (As Of: 09/27/2015 10:59:39 TRAILER CHIEF) Allergies (Active) Glutens Estimated Onset Date: Unspecified ; Created By: PATTI ALMENDAREZ LPN; Reaction Status: Active; Category: Drug ; Substance: Glutens ; Type: Allergy ; Updated By: PATTI ALMENDAREZ LPN; Reviewed Date: 09/27/2015 10:59 TRAILER CHIEF miconazole topical Comments: Comment 1: MICONAZOLE NITRATE ; Created By: Contributor_system, [facility]_HX_ALRG_SYS; Reaction Status: Active ; Category: Drug ; Substance: miconazole topical ; Type: Unknown ;Updated By: Contributor_system, [facility]_HX_AL[facility]_SYS; Reviewed Date: 09/27/2015 10:59 TRAILER CHIEF Nuts Estimated Onset Date: Unspecified ; Created By: PATTI ALMENDAREZ LPN; Reaction Status: Active ; Category: Food ; Substance: Nuts ; Type: Allergy ; Updated By: PATTI ALMENDAREZ LPN; Reviewed Date: 09/27/2015 10:59 TRAILER CHIEF ID Screen Drug Resistant Organism : No Travel Within Last 21 Days : No Contact with someone with Ebola : No CATHIE KAY RN - 09/27/2015 10:56 TRAILER CHIEF Immunizations Immunizations Current : Yes CATHIE KAY RN - 09/27/2015 10:56 TRAILER CHIEF Source: [facility] POWERCHART Document Id: [id number] TRAILER CHIEF!48 LER CHIEF documented in this encounter Miscellaneous Notes Miscellaneous - Cathie Kay R.N. - 09/27/2015 12:15 PM CST Valuables/Belongings Valuables/Belongings Entered On: 09/27/2015 12:16 TRAILER CHIEF Performed On: 09/27/2015 12:15 TRAILER CHIEF by CATHIE KAY RN Valuables/Belongings Belongings Sent Home With : patient CATHIE KAY RN - 09/27/2015 12:15 TRAILER CHIEF [facility] Document Id: [id number] TRAILER CHIEF!3 LER CHIEF Miscellaneous - Conversion, Historical Provider Ser - 09/27/2015 12:15 PM TRAILER CHIEF Coding Summary-Paper Based CODING DATE: 10/08/2015 FINAL CA [facility] STATUS: * Discharged to Home [...] RODNEY Date Saved: 10/08/2015 06:57 am [facility] Document Id: [id number] Miscellaneous - Cathie Kay, R.N. - 09/27/2015 10:41 AM CST Facility Charge Ticket 2.0 11.0 DX Facility Charge Ticket 2.0 11.0 DX Entered On: 09/27/2015 12:16 TRAILER CHIEF Performed On: 09/27/2015 10:41 TRAILER CHIEF by CATHIE KAY RN Facility Charge Ticket [...] Nursing Notes ED Primary Assessment,09/27/15 10:59,CATHIE KAY PARTS SALES REPRESENTATIVE Pain Assessment,09/27/15 12:15,CATHIE KAY RN Lynx Nursing Assessment : Triage and 1-2 nursing assessments Lynx Disposition : Discharge Disposition RTF : discharge [place]x Total Points with Diagnosis Control : 5 Lynx Visit Level : 31808 Level 3 Treatments Prior to Arrival : None CATHIE KAY RN - 09/27/2015 12:16 TRAILER CHIEF [facility] Document Id: [id number] TRAILER CHIEF!18 LER CHIEF documented in this encounter Plan of Treatment Not on filedocumented as of this encounter Visit Diagnoses Not on filedocumented in this encounter
--- OUTSIDE RECORDS SUMMARY | 2022-05-23 11:31 | XMS_ITS | Encounter Summary ---
:1935 Author Organization [facility] Address [address] [place] [address] Care Team Providers Name Role Phone Unavailable Primary Care Provider Unavailable Encounter Details Date Type Department Care Team Description 09/24/2016 Hospital Encounter HX [facility] Wisam Sebastian, C.N.P. [address] [place] [address] (Wo rk) Social History Tobacco [...] Historical Provider Ser - 09/24/2016 11:59 PM HOUSING COUNSELOR Coding Summary-Paper Based CODING DATE: 10/03/2016 FINAL CA [facility] STATUS: * Discharged to Home or [...] RESENDIZ Date Saved: 10/03/2016 02:40 pm [facility] Document Id: [id number] documented in this encounter Plan of Treatment Not on filedocumented as of this encounter Visit Diagnoses Not on filedocumented in this encounter
--- OUTSIDE RECORDS SUMMARY | 2022-05-23 11:31 | XMS_ITS | Encounter Summary ---
:1935 Author Organization [facility] Address [address] [place] [address] Care Team Providers Name Role Phone Unavailable Primary Care Provider Unavailable Encounter Details Date Type Department Care Team Description 09/23/2016 Hospital Encounter HX [facility] Gerardo Gamino P.ADann-CDann [address] [place], [place] [phone] (Wo rk) Social History Tobacco Use Types [...] Take 1 tablet by 0 10/1805/14/2019 rine (MIGN-D 12 HOUR) mouth 2 (two) times a [...] BANDA LPN On: 09/23/2016 09:57 AM [facility] Document Id: [id number] ESS AUTOMATION ENGINEER documented in this encounter Plan of Treatment Not on filedocumented as of this encounter Visit Diagnoses Not on filedocumented in this encounter
--- OUTSIDE RECORDS SUMMARY | 2022-05-23 11:31 | XMS_ITS | Encounter Summary ---
:1935 Author Organization [facility] Address [address] [place] [address] Care Team Providers Name Role Phone Unavailable Primary Care Provider Unavailable Encounter Details Date Type Department Care Team Description 09/27/2015 - Hospital Encounter [facility] Jordi Villarreal, 06/02/2016 EARLINE Fung [id number] [place] [phone] (Wo rk) Social History Tobacco Use [...] Villalobos P.T. - 09/28/2015 12:00 AM CST [id number] PHYSICAL THERAPY PROGRESS NOTE CHIEF COMPLAINT Patient reports she feels significantly better than yesterday but is still having episodes of dizziness especially when turning her head. She just wanted to ensure everything was clear as we are approaching the weekend. IMPRESSION/REPORT/PLAN Today we did perform [place] testing. She tested negative for all canals bilaterally. We did repeat WAFER SUBSTRATE TESTER maneuvers for the right posterior canal x2 [...] with patient next week via telephone. Bianca Villalobos D.P.T./farhat Electronically Signed By: BIANCA VILLALOBOS On: 10/17/2015 01:27 PM Source: [facility] MHSDOLBEYNONRADSYS Document Id: [id number] BACK COORDINATOR documented in this encounter Consult Notes Bianca Villalobos PMaikel - 09/27/2015 12:00 AM CST [id number] INITIAL EVALUATION Patient is referred to physical [...] was treated for right posterior canal with WAFER SUBSTRATE TESTER maneuvers. She does require Skilled Physical Therapy [...] 2 weeks. PLAN OF CARE Patient education, WAFER SUBSTRATE TESTER maneuvers, possible home program if needed. Plan will be to see patient up to4 treatment sessions over the next 2 weeks to resolve symptoms. Patient will be followed up via telephone tomorrow. Bianca Villalobos D.P.T./farhat Electronically Signed By: BIANCA VILLALOBOS On: 10/01/2015 11:27 AM Co-Signed By: EARLE OSMAN III, MD On: 10/15/2015 11:35 AM Source: [facility] MHSDOLBEYNONRADSYS Document Id: [id number] BACK COORDINATOR documented in this encounter Miscellaneous Notes Miscellaneous - Conversion, Historical Provider Ser - 10/04/2015 1:48 PM LOOKBACK COORDINATOR Coding Summary-Paper Based CODING DATE: 10/04/2015 FINAL CA [facility] STATUS: Still Patient/Expected to Rtn Oupt Svc [...] SEQUEIRA Date Saved: 10/04/2015 01:48 pm [facility] Document Id: [id number] documented in this encounter Plan of Treatment Not on filedocumented as of this encounter Visit Diagnoses Not on filedocumented in this encounter
--- OUTSIDE RECORDS SUMMARY | 2022-05-23 11:31 | XMS_ITS | Encounter Summary ---
:1935 Author Organization [facility] Address [address] [place] [address] Care Team Providers Name Role Phone Unavailable Primary Care Provider Unavailable Encounter Details Date Type Department Care Team Description 07/10/2015 Hospital Encounter HX [facility] Mary Varma, CYRIL, C.N.P., D. N.P. [address] [place] [phone] (Wo rk) Social History Tobacco [...] PERDOMO RN on 18 October 2015 13:07:40 HOTEL CONCIERGE faxed to [employer] order Addendum by HUNTER SEQUEIRA MD on 18 October 2015 12:13:31 HOTEL CONCIERGE From: HUNTER SEQUEIRA MD Sent: 10/18/2015 12:13:31 HOTEL CONCIERGE Subject: RE:FW: Eleanor Approved Order:fexofenadine-pseudoephedrine (Rochelle-D 12 Hour 60 mg-120 mg oral tablet, extended release) 1 tab(s) PO 2xDay Qty: 180 tab(s) Refills: 3 Substitutions Allowed Print - [id number] [facility] [phone] Signed by HUNTER SEQUEIRA MD 10/18/2015 12:13:24 Addendum by MADHAVI PERDOMO RN on 18 October 2015 07:54:35 HOTEL CONCIERGE From: MADHAVI PERDOMO RN To: HUNTER SEQUEIRA MD; Sent: 10/18/2015 07:54:35 HOTEL CONCIERGE Subject: FW: Rochelle-Suhas [facility] review and address, [facility] Addendum by KAMINI OLIVAREZ RN on 16 October 2015 10:36:19 HOTEL CONCIERGE Fax to [employer] [phone] From: KAMINI OLIVAREZ RN To: HUNTER SEQUEIRA MD; KAMINI OLIVAREZ RN; MADHAVI PERDOMO RN; Sent: 10/16/2015 10:34:48 HOTEL CONCIERGE Subject: Rochelle-D On hold pending signature Order:fexofenadine-pseudoephedrine (Rochelle-D 12 Hour 60 mg-120 mg oral tablet, extended release) 1 tab(s) PO 2xDay Qty: 180 tab(s) Refills: 3 Substitutions Allowed Print - [id number] [place] [phone] Pt. has been taking and gets refilled yearly. Source: [facility] POWERSecond & Fourth Document Id: [id number] Electronically signed by Conversion, [facility] Studio Associate [id number] at 02/09/2017 6:46 AM CDT Miscellaneous - Mary Varma, CYRIL, C.N.P. - 07/16/2015 8:26 AM CST Normal Results Letter 16 July 2015 KATHRYN LEON [address] [facility] [id number] Dear KATHRYN LEON, Your results from the [...] <15 07/10/2015 0<15 - Sincerely, MARY VARMA [address] [address] Electronic Signature Electronically Signed By: MARY VARMA RN, LEADING FIREFIGHTER On: 16 July 2015 This document has images extracted. Source: [facility] POWERCHART Document Id: [id number] Electronically signed by Dustin, [facility] Studio Associate [id number] at 02/09/2017 6:46 AM CDT Miscellaneous - Sujatha Batista L.PDannNDann - 07/10/2015 9:50 AM CDT Adult Grocery Clerk Marking Intake/History Adult Grocery Clerk Marking Intake/History Entered On: 07/10/2015 10:00 CDT Performed [...] abo treatment/Prednisone saw Dr. Hays Seen in [place] inflammed vocal cord. Actual Weight : 77.7 kg(Converted to: 171 lb 5 oz) Weight Source : Standing scale Dosing Weight Clinic : 77.7 kg SUJATHA BATISTA LPN - 07/10/2015 9:50 CDT General Info Information Given By : Patient Preferred Communication Mode : Verbal Languages : Hong Konger Is Patient Female and 13-50 no hysterectomy : No SUJATHA BATISTA LPN - 07/10/2015 9:50 CDT Subjective Pain Symptoms : No SUJATHA BATISTA LPN - 07/10/2015 9:50 CDT Dependent Habits Tobacco Use/Currently Using : No Exposure to Tobacco Smoke : Care provider denies smoking in home, Other: never Smoking Status : Never smoker Alcohol Use : Yes SUJATHA BATISTA LPN - 07/10/2015 9:50 CDT Caffeine Use Grid Caffeine Use : Current Type : Coffee Frequency : Weekly SUJATHA BATISTA LPN - 07/10/2015 9:50 CDT Recreational Drug Use Grid Drug Use : None SUJATHA BATISTA LPN - 07/10/2015 9:50 CDT Source: [facility] POWERCHART Document Id: [id number] CDT!13 documented in this encounter Plan of [...] POWERCHART Factor, S Comment: Test Performed by: [place] [address] Freelance Makeup Artist: Mark Pittman II, M.D., Ph.D. Specimen (Source) Anatomical Collection Method Collection Time Re ceived Time Location / / Volume Laterality Blood 07/10/2015 10:54 AM CDT Esperanza Schmidt APRNN.Abelino., D.N.P. LAB BLOOD ADD-ON Performing Organization Address City/[facility]/ZIP Code Phon e Number POWERCHART (ABNORMAL) BMP [...] POWERCHART MMOLL HXeGFR (MDRD) >60 >=60 POWERCHART [id number] eGFR >60 >=60 POWERCHART Black/ [id number] [place] Specimen (Source) Anatomical Collection Method Collection Time Re ceived Time Location / / Volume Laterality Blood 07/10/2015 10:54 AM CDT Angy Schmidt APRN.N.PDann, D.N.P. LAB BLOOD ADD-ON Performing Organization Address City/State/ZIP Code Phon e Number POWERCHART (ABNORMAL) AST (Aspartate Aminotransferase) (07/10/2015 10:54 AM CDT) [facility] gist Method Time Signature Aspartate 72 (H) 8 - 43 POWERCHART Aminotransferase UNITL (AST), S Specimen (Source) Anatomical Collection Method Collection Time Re ceived Time Location / / Volume Laterality Blood 07/10/2015 10:54 AM CDT Mary Varma APRN C.N.P., D.N.P. LAB BLOOD ADD-ON Performing Organization Address City/[facility] Code Phon e Number POWERCHART (ABNORMAL) ALT (Alanine Aminotransferase) (07/10/2015 10:54 AM CDT) athologist Signature Alanine 118 (H) 7 - 45 POWERCHART Amniotransfera UNITL se, LD Specimen (Source) Anatomical Collection Method Collection Time Re ceived Time Location / / Volume Laterality Blood 07/10/2015 10:54 AM CDT Mary Varma APRN C.N.P., D.N.P. LAB BLOOD ADD-ON Performing Organization Address [facility] Phon e Number POWERCHART (ABNORMAL) GGT (Gamma-Glutamyltransferase) (07/10/2015 10:54 AM CDT) Component Value Ref Test Analysis Performed At [facility] gist Range Method Time Signature Gamma 120 (H) 6 - 29 POWERCHART Glutamyltransferase UL (GGT), S Specimen (Source) Anatomical Collection Method Collection Time Re ceived Time Location / / Volume Laterality Blood 07/10/2015 10:54 AM CDT Mary Varma APRN, C.N.P., D.N.P. LAB BLOOD ADD-ON Performing Organization Address City/[facility] Code Phon e Number POWERCHART documented in this encounter Visit Diagnoses Not on filedocumented in this encounter
--- OUTSIDE RECORDS SUMMARY | 2022-05-23 11:31 | XMS_ITS | Encounter Summary ---
:1935 Author Organization [facility] Address [address] [place] [address] Care Team Providers Name Role Phone Unavailable Primary Care Provider Unavailable Encounter Details Date Type Department Care Team Description 06/07/2015 - Hospital Encounter HX [facility] [place] Varma, 06/13/2015 SRV CYRIL C.N.P., D.N.P. [address] [place] [phone] Social History Tobacco Use Types Packs/Day Years Used Date Smoking Tobacco: Never Assessed Sex Assigned at Date Recorded Not on file documented as of this encounter Discharge Summaries Bianca Villalobos P.T. - 06/13/2015 12:00 AM CDT [id number] PHYSICAL THERAPY DISCHARGE SUMMARY No treatment performed on this date. Patient was evaluated and treated on 06/07/2015 for positional vertigo. Patient's primary care physician is [place] Varma. PLAN OF CARE Included CENTRIFUGAL EXTRACTOR OPERATOR maneuvers. Patient had full resolution of symptoms and goal achievement, therefore willbe discharged from therapy. Shawn JosephT./farhat Electronically Signed By: BIANCA VILLALOBOS On: 07/18/2015 02:23 PM Source: [facility] MHSDOLBEYNONRADSYS Document Id: [id number] CIATE PROFESSOR OF ARCHAEOLOGY documented in this encounter Medications at Time [...] BIANCA VILLALOBOS On: 06/08/2015 01:28 PM Source: [facility] POWERCHART Document Id: [id number] documented in this encounter Consult Notes Bianca Villalobos P.T. - 06/07/2015 12:00 AM CDT [id number] PHYSICAL THERAPY PROGRESS NOTE Patient presents to [...] symptom-free within 3 weeks. PLAN OF CARE CENTRIFUGAL EXTRACTOR OPERATOR maneuvers with possible home exercise program if needed. She has good rehab potential to achievegoals. Plan is to see patient up to 3 times per week for 3 weeks as needed to resolve symptoms. Patient's primary care physician is [place] Varma. Bianca Villalobos D.P.T./farhat Electronically Signed By: BIANCA VILLALOBOS On: 06/19/2015 02:13 PM Co-Signed By: [place] VARMA RN, [facility] On: 06/20/2015 04:10 PM Source: [facility] MHSDOLBEYNONRADSYS Document Id: [id number] documented in this encounter Miscellaneous Notes Miscellaneous - Conversion, Historical Provider Ser - 06/08/2015 10:28 AM CDT Coding Summary-Paper Based CODING DATE: 06/08/2015 FINAL CA [facility] STATUS: Still Patient/Expected to Rtn Oupt [facility] [place] [place] PAYOR: Medicare ADMIT DX: 780.4 Dizziness and [...] SEQUEIRA Date Saved: 06/08/2015 10:28 am Source: [employer] Document Id: [id number] documented in this encounter Plan of Treatment Not on filedocumented as of this encounter Visit Diagnoses Not on filedocumented in this encounter
--- OUTSIDE RECORDS SUMMARY | 2022-05-23 11:31 | XMS_ITS | Encounter Summary ---
:1935 Author Organization [facility] Address [address] [place] [address] Care Team Providers Name Role Phone Unavailable Primary Care Provider Unavailable Encounter Details Date Type Department Care Team Description 11/06/2015 Hospital Encounter HX [facility] ED Cristina Villagomez M.D. [address] [place] [address] (Wo rk) Social History Tobacco Use Types Packs/Day Years Used Date Smoking Tobacco: Never Assessed Sex Assigned at Date Recorded Not on file documented as of this encounter Last Filed Vital Signs Vital Sign Reading Time Taken Comments Blood Pressure 150/82 11/06/2015 10:19 PM FOOD SCIENCE PROFESSOR Pulse 73 11/06/2015 10:19 PM FOOD SCIENCE PROFESSOR Temperature - - Respiratory Rate 16 11/06/2015 10:19 PM FOOD SCIENCE PROFESSOR Oxygen Saturation - - Inhaled Oxygen Concentration - - Weight - - Height - - Body Mass Index - - documented in this encounter Discharge Summaries Linnette Cleary RDannNDann - 11/06/2015 11:31 PM CST ED Discharge Instructions [address] [place] [address] Name: KATHRYN LEON Date of : 1935 12:00 AM Visit Date: 11/06/2015 9:31 PM [facility] Number: [phone] Address: [address] [place] [address] [place] [id number] Primary Care Provider: HUNTER SEQUEIRA MD IMPORTANT: [facility] in [place] would like to thank you for allowing us to assist you with your healthcare needs. The following includes patient education materials and informationregarding your injury/illness. Diagnosis: Pain Chest Wall (CWP) Follow-Up Instructions: With: Address: When: HUNETR SEQUEIRA [address] [place] [address] [place] [address] Business (1) Within As Needed Your Upcoming [...] as directed by your healthcare provider ?? [phone] Jannet Varela, [address] [place] [address], [place] [address]. All rights reserved. This information is not [...] pain or redness in one leg ?? [phone] Formerly [facility], [address] [place] [address]. All rights reserved. This information is not [...] if you dont have one. Go to [email or web address] and click on Create Your Account. Then, follow the directions to complete the online form. Youll be asked for your [facility] number which you can find at the [...] Medication/Strength Dose Route Frequency Indications/Special Instructions/Comments/Notes HYDROcodone-acetaminophen (Chilo 5 mg-325 mg oral tablet) 1 to 2 tablets Oral every 6 hours as needed for Pain No more than 4,000mg acetaminophen/24hrs fexofenadine-pseudoephedrine (Rochelle-D 12 Hour 60 mg-120 mg oral tablet, extended release) 1 tab(s)Oral two times a day jasmyn/janki beal [phone] estradiol topical (Vagifem 10 mcg vaginal tablet) 10 mcg Vaginal 2 times a week Member No [phone] gabapentin (gabapentin 300 mg oral capsule) 900 mg Oral once a day *omeprazole (omeprazole 40 mg oral delayed release capsule) 40 mg Oral two times a day 30-60 min prior to meals / last saw patient 03/30/15, no mention of f/u, but referred patient to Dr. Mosley at [facility] fluticasone nasal (Flonase 0.05 mg/inh nasal [...] document has images extracted. Please consider using [employer] for all your patient education needs. Source: [facility] POWERCHART Document Id: [id number] SCIENCE PROFESSOR Linnette Cleary, R.N. - 11/06/2015 11:31 PM CST ED Depart Summary [facility] Emergency Department Clinical Discharge Summary PERSON INFORMATION Name KATHRYN LEON Age 80 Years 1935 12:00 AM Sex Female Language [place] Islander PCP HUNTER SEQUEIRA MD Mar[id number] Reason Chest pain; side pain Specialty Enc Type Emergency Med Service Emergency Medicine Referred by Track Group [facility] ED Discharge 11/06/2015 11:31 PM Tracking Id [id number] Checkout 11/06/2015 11:31 PM Checkin 11/06/2015 9:31 PM Acuity 3 -Urgent Dispo Type * Discharged to Home or Self Care Arrival 11/06/2015 9:31 PM Reg Status Complete LOS 000 02:00 Address: [address] [place] [phone] Comment: PROVIDER INFORMATION Provider Role Provider Contact Time AZAR VILLAGOMEZ MD ED Provider 11/06/15 21:34 CHRISTOPHER ALANIS ED Nurse 11/06/15 21:35 LINNETTE CLEARY PATENT ENGINEER Nurse 11/06/15 21:35 DIAGNOSIS Pain Chest Wall (CWP) Comment: PATIENT EDUCATION INFORMATION Instructions: CHEST WALL STRAIN; CHEST PAIN, NonCardiac Follow up: With: Address: When: HUNTER SEQUEIRA [address] [place] [address] Business (1) Within As Needed Source: [facility] POWERCHART Document Id: [id number] SCIENCE PROFESSOR documented in this encounter Medications at Time [...] ED Disposition Summary Entered On: 11/06/2015 23:30 FOOD SCIENCE PROFESSOR Performed On: 11/06/2015 23:30 FOOD SCIENCE PROFESSOR by LINNETTE CLEARY PATENT ENGINEER Disposition Summary Present in Room During Exam/Procedure : Spouse Mode of Discharge : Ambulatory Transportation : Private vehicle Printed Discharge Instructions Given to Patient : Yes LINNETTE CLEARY RN - 11/06/2015 23:30 FOOD SCIENCE PROFESSOR Source: [facility] [employer] Document Id: [id number] FOOD SCIENCE PROFESSOR!6 SCIENCE PROFESSOR Linnette Cleary R.N. - 11/06/2015 11:30 PM CST ED Pain Assessment ED Pain Assessment Entered On: 11/06/2015 23:30 FOOD SCIENCE PROFESSOR Performed On: 11/06/2015 23:30 FOOD SCIENCE PROFESSOR by LINNETTE CLEARY RN Pain Assessment Pain Symptoms : No LINNETTE CLEARY RN - 11/06/2015 23:30 FOOD SCIENCE PROFESSOR Source: [facility] [employer] Document Id: [id number] FOOD SCIENCE PROFESSOR!3 SCIENCE PROFESSOR Christopher Alanis R.N. - 11/06/2015 10:15 PM CST ED Treatments and Procedures ED Treatments and Procedures Entered On: 11/06/2015 22:21 FOOD SCIENCE PROFESSOR Performed On: 11/06/2015 22:15 FOOD SCIENCE PROFESSOR by CHRISTOPHER ALANIS Peripheral IV Peripheral IV Assess/Intervention Grid Peripheral IV #1 IV Activity : Start Number of Attempts : 1 Date of Insertion : 11/06/2015 FOOD SCIENCE PROFESSOR IV Site : Antecubital Laterality : Left Catheter Size : 18 CHRISTOPHER ALANIS - 11/06/2015 22:20 FOOD SCIENCE PROFESSOR Source: [facility] [employer] Document Id: [id number] FOOD SCIENCE PROFESSOR!10 SCIENCE PROFESSOR Linnette Cleary R.N. - 11/06/2015 10:02 PM CST ED Primary Assessment Document Has Been Updated ED Primary Assessment Entered On: 11/06/2015 22:04 FOOD SCIENCE PROFESSOR Performed On: 11/06/2015 22:02 FOOD SCIENCE PROFESSOR by LINNETTE CLEARY RN Reason For Visit (As Of: 11/06/2015 22:04:09 FOOD SCIENCE PROFESSOR) Problems(Active) Abnormal Liver Function Test (ICD-9-CM :790.6 ) Name of Problem: Abnormal Liver Function Test ; Onset Date: 10/05/2014 ; Recorder: ALBANIA VARMA C.N.P., D.N.PDann; Confirmation: Confirmed ; Classification: Medical ; Code: 790.6 ; Contributor System: [employer] ; Last Updated: 11/17/2014 12:51 FOOD SCIENCE PROFESSOR ; LifeCycle Status: Active ; Responsible Provider: [...] Nursing ; Code: 714.0 ; Contributor System: [employer] ; Last Updated: 10/25/2010 20:18 FOOD SCIENCE PROFESSOR ; Life Cycle Date: 10/25/2010 ; Life Cycle Status: Active ; Responsible Provider: PATTI ALMENDAREZ LPN; Vocabulary: ICD-9-CM Atrophic vaginitis (ICD-9-CM :627.3 ) Name of Problem: Atrophic vaginitis ; Onset Date: 07/27/2012 ;Recorder: ALBANIA VARMA C.N.P., D.N.PDann; Confirmation: Confirmed ; Classification: Medical ; Code: 627.3 ; Last Updated: 07/27/2012 11:32 FOOD SCIENCE PROFESSOR ; Life Cycle Status: Active ; Responsible Provider: ALBANIA VARMA C.N.P., Suhas.N.P.; Vocabulary: ICD-9-CM Bursitis Hip/Trochanertic (ICD-9-CM :726.5 ) Name of Problem: Bursitis Hip/Trochanertic ; Onset Date: 10/20/2011 ; Recorder: ALBANIA VARMANSuhas Baker.N.PDann; Confirmation: Confirmed ; Classification: Medical ; Code: 726.5 ; Last Updated: 10/20/2011 9:54 FOOD SCIENCE PROFESSOR ; Life Cycle Status: Active ; Responsible Provider: ALBANIA VARMA C.N.P., D.N.PDann; Vocabulary: ICD-9-CM Cataract NOS (ICD-9-CM :366.9 ) Name of Problem: Cataract NOS ; Onset Date: 1991 ; Recorder: PATTI ALMENDAREZ LPN; Confirmation: Confirmed ; Classification: Nursing ; Code: 366.9 ; Contributor System: [employer] ; Last Updated: 01/21/2011 10:04 CDT ; Life Cycle Date: 10/25/2010 ; Life Cycle Status: Active ; Responsible Provider: PATTI ALMENDAREZ LPN; Vocabulary: ICD-9-CM ; Comments: 12/31/2010 12:11 - PATTI ALMENDAREZ LPN date unknown Celiac Disease (ICD-9-CM :579.0 ) Name of Problem: Celiac Disease ; Onset Date: 02/26/2007 ; Recorder: PATTI ALMENDAREZ LPN; Confirmation: Confirmed ; Classification: Nursing ; Code: 579.0 ; ContributorSystem: [employer]xt ; Last Updated: 10/25/2010 20:20 FOOD SCIENCE PROFESSOR ; Life Cycle Date: 10/25/2010 ; Life [...] Medical ; Code: J38.3 ; Contributor System: [employer] ; Last Updated: 07/10/2015 10:30 CDT ; Life Cycle Status: Active ; Responsible Provider: ALBANIA VARMANOlivia, Suhas.N.PDann; Vocabulary: ICD-10-CM Diverticulitis of large intestine (ICD-9-CM :562.11 ) Name of Problem: Diverticulitis of large intestine ; Onset Date: 10/28/2010 ; Recorder: ALBANIA VARMANSuhas Baker.N.PDann; Confirmation: Confirmed ; Classification: Medical ; Code: 562.11 ; Last Updated: 10/28/2010 16:30 FOOD SCIENCE PROFESSOR ; Life Cycle Status: Active; Responsible Provider: ALBANIA VARMA C.N.P., Suhas.N.PDann; Vocabulary: ICD-9-CM Eye disorder (ICD-9-CM :379.8 ) Name of Problem: Eye disorder ; Recorder: TAMMY ACEVES MD; Confirmation: Confirmed ; Classification: UPDATE NEEDED ; Code: 379.8 ; Contributor System: [employer] ; Last Updated: 01/05/2012 19:00 CDT ; Life Cycle Date: 01/05/2012 ; Life Cycle Status: Active ; Responsible Provider: TAMMY ACEVES MD; Vocabulary: ICD-9-CM ; Comments: 01/21/2012 9:37 - MATTHEW BORDEN LPN date unknown Fracture of rib (SNOMED CT :69676248 ) Name of Problem: Fracture of rib ; Onset Date: 05/12/2013 ; Recorder: SUJATHA MAR LPN; Confirmation: Confirmed ; Classification: Nursing ; Code: 56821538 ;Contributor System: [employer] ; Last Updated: 06/07/2013 8:10 CDT [...] ALMENDAREZ LPN date unknown Glaucoma (SNOMED CT :51062335 ) Name of Problem: Glaucoma ; Recorder: TAMMY ACEVES MD; Confirmation: Confirmed ; Classification: Medical ; Code: 18521970 ; Contributor System: [employer] ; Last Updated: 01/05/2012 18:52 CDT ; [...] Code: 553.3 ; Last Updated: 10/31/2013 11:53 FOOD SCIENCE PROFESSOR ; Life Cycle Status: Active ; Responsible Provider: ALBANIA VARMA C.N.PDann, D.N.P.; Vocabulary: ICD-9-CM 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 (ICD-9-CM :722.10 ) Name of Problem: 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 ; Recorder: ALBANIA VARMA.N.PDann, D.N.P.; Confirmation: Confirmed ; Classification: Medical ; Code: 722.10 ; Contributor System: [employer] ; Last Updated: 11/04/2010 9:49 FOOD SCIENCE PROFESSOR ; Life Cycle Date: 11/04/2010 ; Life Cycle Status: Active ; Responsible Provider: ALBANIA VARMA C.N.PDann, D.N.P.; Vocabulary: ICD-9-CM ; Comments: 12/31/2010 12:11 - PATTI ALMENDAREZ LPN date unknown Osteopenia (ICD-9-CM :733.90 ) Name of Problem: Osteopenia ; Onset Date: 02/26/1987 ; Recorder: PATTI ALMENDAREZ LPN; Confirmation: Confirmed ; Classification: Nursing ; Code: 733.90 ; Contributor System: [employer] ; Last Updated: 10/25/2010 20:19 FOOD SCIENCE PROFESSOR ; Life Cycle Date: 10/25/2010 ; Life Cycle Status: Active ; Responsible Provider: PATTI ALMENDAREZ LPN; Vocabulary: ICD-9-CM Triage Mode of Arrival ED : Private vehicle Track : Medical Languages : [place]er Treatments Prior to Arrival : None Is Patient Female and 13-50 no hysterectomy : No LINNETTE CLEARY RN - 11/06/2015 22:02 FOOD SCIENCE PROFESSOR Pain Assessment Pain Symptoms : Yes LINNETTE CLEARY RN - 11/06/2015 22:02 FOOD SCIENCE PROFESSOR Respiratory Airway : Patent Respirations : Unlabored Respiratory Pattern : Regular Oxygen Start Time : 11/06/2015 21:48 FOOD SCIENCE PROFESSOR LINNETTE CLEARY RN - 11/06/2015 22:02 FOOD SCIENCE PROFESSOR Cardiovascular Heart Rhythm : Regular Skin Color : Normal for ethnicity Skin Description : Dry Skin Temperature : Warm Cardiovascular Detailed Assessment : Yes Monitoring Lead : I LINNETTE CLEARY RN - 11/06/2015 22:02 FOOD SCIENCE PROFESSOR CV Detailed CV Patient Stated Symptoms : Chest pain Nail Bed Color : [place] Capillary Refill : Less than 2 seconds Cardiac Rhythm : Sinus rhythm Ectopy Frequency : None LINNETTE CLEARY RN - 11/06/2015 22:02 FOOD SCIENCE PROFESSOR Neurological Last Well Time Known : Not applicable Level of Consciousness : Alert Orientation : Oriented x 3 Characteristics of Speech : Appropriate for age LINNETTE CLEARY RN - 11/06/2015 22:02 FOOD SCIENCE PROFESSOR ED Psychosocial Affect/Behavior : Calm, Cooperative, Appropriate Domestic Abuse Concerns : None Behavioral Health Screen/Safety Assmt : No LINNETTE CLEARY RN - 11/06/2015 22:02 FOOD SCIENCE PROFESSOR Gastrointestinal Nutrition ED : Adequate LINNETTE CLEARY RN - 11/06/2015 22:02 FOOD SCIENCE PROFESSOR Musculoskeletal Fall Prevention Education Provided : Yes LINNETTE CLEARY RN - 11/06/2015 22:02 FOOD SCIENCE PROFESSOR Social Habits Exposure to Tobacco Smoke : Care provider denies smoking in home, Other: never Smoking Status : Never smoker Tobacco 2A : No Tobacco Use/Currently Using : No Tobacco Use/Last 30 Days : No Tobacco Use/Last 12 months : No LINNETTE CLEARY RN - 11/06/2015 22:02 FOOD SCIENCE PROFESSOR Alcohol Use Grid Alcohol Use : Yes Type : Liquor Frequency : Occasionally LINNETTE CLEARY RN - 11/06/2015 22:02 FOOD SCIENCE PROFESSOR Recreational Drug Use Grid Drug Use : None LINNETTE CLEARY RN - 11/06/2015 22:02 FOOD SCIENCE PROFESSOR Source: [facility] [employer] Document Id: [id number] FOOD SCIENCE PROFESSOR!55 SCIENCE PROFESSOR Linnette Cleary R.N. - 11/06/2015 9:58 PM CST ED Treatments and Procedures ED Treatments and Procedures Entered On: 11/06/2015 21:59 FOOD SCIENCE PROFESSOR Performed On: 11/06/2015 21:58 FOOD SCIENCE PROFESSOR by LINNETTE CLEARY RN Cardiac Monitoring Monitoring Lead : II Monitoring Lead Floor Runner : Initiated Ventricular Rhythm : Regular Ectopy Frequency : None Cardiac Rhythm Tech : Sinus rhythm LINNETTE CLEARY RN - 11/06/2015 21:58 FOOD SCIENCE PROFESSOR Oxygen Therapy Oxygen Start Time : 11/06/2015 21:48 FOOD SCIENCE PROFESSOR Oxygen Therapy : Nasal cannula Oxygen Flow Rate : 2 L/min LINNETTE CLEARY RN - 11/06/2015 21:58 FOOD SCIENCE PROFESSOR Source: [facility] [employer] Document Id: [id number] FOOD SCIENCE PROFESSOR!11 SCIENCE PROFESSOR Linnette Cleary R.N. - 11/06/2015 9:56 PM CST ED Triage Assessment Document Has Been Updated ED Triage Assessment Entered On: 11/06/2015 21:58 FOOD SCIENCE PROFESSOR Performed On: 11/06/2015 21:56 FOOD SCIENCE PROFESSOR by LINNETTE CLEARY RN Reason For Visit (As Of: 11/06/2015 21:58:27 FOOD SCIENCE PROFESSOR) Problems(Active) Abnormal Liver Function Test (ICD-9-CM :790.6 ) Name of Problem: Abnormal Liver Function Test ; Onset Date: 10/05/2014 ; Recorder: ALBANIA VARMAPSuhas Quigley.N.PDann; Confirmation: Confirmed ; Classification: Medical ; Code: 790.6 ; Contributor System: Power[employer] ; Last Updated: 11/17/2014 12:51 FOOD SCIENCE PROFESSOR ; LifeCycle Status: Active ; Responsible Provider: [...] Nursing ; Code: 714.0 ; Contributor System: [employer] ; Last Updated: 10/25/2010 20:18 FOOD SCIENCE PROFESSOR ; Life Cycle Date: 10/25/2010 ; Life Cycle Status: Active ; Responsible Provider: PATTI ALMENDAREZ LPN; Vocabulary: ICD-9-CM Atrophic vaginitis (ICD-9-CM :627.3 ) Name of Problem: Atrophic vaginitis ; Onset Date: 07/27/2012 ;Recorder: ALBANIA VARMAN.PDann, D.N.PDann; Confirmation: Confirmed ; Classification: Medical ; Code: 627.3 ; Last Updated: 07/27/2012 11:32 FOOD SCIENCE PROFESSOR ; Life Cycle Status: Active ; Responsible Provider: ALBANIA VARMAN.PDann, D.N.P.; Vocabulary: ICD-9-CM Bursitis Hip/Trochanertic (ICD-9-CM :726.5 ) Name of Problem: Bursitis Hip/Trochanertic ; Onset Date: 10/20/2011 ; Recorder: ALBANIA VARMA.N.PDann, D.N.PDann; Confirmation: Confirmed ; Classification: Medical ; Code: 726.5 ; Last Updated: 10/20/2011 9:54 FOOD SCIENCE PROFESSOR ; Life Cycle Status: Active ; Responsible Provider: ALBANIA VARMAN.PDann, D.N.P.; Vocabulary: ICD-9-CM Cataract NOS (ICD-9-CM :366.9 ) Name of Problem: Cataract NOS ; Onset Date: 1991 ; Recorder: PATTI ALMENDAREZ LPN; Confirmation: Confirmed ; Classification: Nursing ; Code: 366.9 ; Contributor System: [employer] ; Last Updated: 01/21/2011 10:04 CDT [...] Classification: Nursing ; Code: 579.0 ; ContributorSystem: [employer]yxt ; Last Updated: 10/25/2010 20:20 FOOD SCIENCE PROFESSOR ; Life Cycle Date: 10/25/2010 ; Life [...] Code: 562.11 ; Last Updated: 10/28/2010 16:30 FOOD SCIENCE PROFESSOR ; Life Cycle Status: Active; Responsible Provider: ALBANIA VARMA C.N.P., Suhas.N.PDann; Vocabulary: ICD-9-CM Eye disorder (ICD-9-CM :379.8 ) Name of Problem: Eye disorder ; Recorder: TAMMY ACEVES MD; Confirmation: Confirmed ; Classification: UPDATE NEEDED ; Code: 379.8 ; Contributor System: [employer] ; Last Updated: 01/05/2012 19:00 CDT ; Life Cycle Date: 01/05/2012 ; Life Cycle Status: Active ; Responsible Provider: TAMMY ACEVES MD; Vocabulary: ICD-9-CM ; Comments: 01/21/2012 9:37 - MATTHEW BORDEN LPN date unknown Fracture of rib (SNOMED CT :39680114 ) Name of Problem: Fracture of rib ; Onset Date: 05/12/2013 ; Recorder: SUJATHA MAR LPN; Confirmation: Confirmed ; Classification: Nursing ; Code: 54390164 ;Contributor System: [employer] ; Last Updated: 06/07/2013 8:10 CDT [...] ; Comments: 12/31/2010 12:11 - PATTI ALMENDAREZ SHIPPING AND RECEIVING SPECIALIST date unknown Glaucoma (SNOMED CT :67662915 ) Name of Problem: Glaucoma ; Recorder: TAMMY ACEVES MD; Confirmation: Confirmed ; Classification: Medical ; Code: 80377996 ; Contributor System: PowerChart ; Last Updated: 01/05/2012 18:52 CDT ; Life Cycle Date: 01/05/2012 ; Life Cycle Status: Active ; ResponsibleProvider: TAMMY ACEVES MD; Vocabulary: SNOMED CT ; Comments: 01/21/2012 9:37 - SUHAMATTHEW SHIPPING AND RECEIVING SPECIALIST date unknown Hernia, hiatal (ICD-9-CM :553.3 ) Name of Problem: Hernia, hiatal ; Onset Date: 10/31/2013 ; Recorder: ALBANIA VARMA C.N.PDann, D.N.PDann; Confirmation: Confirmed ; Classification: Medical ; Code: 553.3 ; Last Updated: 10/31/2013 11:53 FOOD SCIENCE PROFESSOR ; Life Cycle Status: Active ; Responsible Provider: ALBANIA VARMA C.N.PDann, D.N.P.; Vocabulary: ICD-9-CM 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 (ICD-9-CM :722.10 ) Name of Problem: 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 ; Recorder: ALBANIA VARMA C.N.PDann, D.N.P.; Confirmation: Confirmed ; Classification: Medical ; Code: 722.10 ; Contributor System: PowerChart ; Last Updated: 11/04/2010 9:49 FOOD SCIENCE PROFESSOR ; Life Cycle Date: 11/04/2010 ; Life Cycle Status: Active ; Responsible Provider: ALBANIA VARMA C.N.PDann, D.N.P.; Vocabulary: ICD-9-CM ; Comments: 12/31/2010 12:11 - PATTI ALMENDAREZ LPN date unknown Osteopenia (ICD-9-CM :733.90 ) Name of Problem: Osteopenia ; Onset Date: 02/26/1987 ; Recorder: PATTI ALMENDAREZ LPN; Confirmation: Confirmed ; Classification: Nursing ; Code: 733.90 ; Contributor System: [employer]xt ; Last Updated: 10/25/2010 20:19 FOOD SCIENCE PROFESSOR ; Life Cycle Date: 10/25/2010 ; Life Cycle Status: Active ; Responsible Provider: PATTI ALMENDAREZ LPN; Vocabulary: ICD-9-CM Triage Chief Complaint Description : presents with left lateral chest pain that started at 2100 while she was getting undressed Information Given By : Patient Present in Room During Exam/Procedure : Spouse Mode of Arrival ED : Private vehicle Track : Medical Languages : [place] Patient Informed of Triage Location : Emergency department Vital Signs Assessed : Yes Treatments Prior to Arrival : None Is Patient Female and 13-50 no hysterectomy : No LINNETTE CLEARY RN - 11/06/2015 21:56 FOOD SCIENCE PROFESSOR Vital Signs Temperature Core : 36.4 DegC(Converted to: 97.5 DegF) (LOW) Peripheral Pulse Rate : 78 /min Respiratory Rate : 16 /min Systolic Blood Pressure : 132 mmHg Diastolic Blood Pressure : 72 mmHg NIBP Mean : 92 mmHg SpO2 : 99 % Oxygen Therapy : Room air LINNETTE CLEARY RN - 11/06/2015 21:56 FOOD SCIENCE PROFESSOR Pain Assessment Pain Symptoms : Yes LINNETTE CLEARY RN - 11/06/2015 21:56 FOOD SCIENCE PROFESSOR Pain Scale Pain Scale Verbal 0-10 : Open LINNETTE CLEARY RN - 11/06/2015 21:56 FOOD SCIENCE PROFESSOR Pain Pain Assessment Grid Pain 1 Location : Chest Laterality : Left Intensity : 8 Time Pattern : Acute Onset : Sudden Quality : Sharp LINNETTE CLEARY RN - 11/06/2015 21:56 FOOD SCIENCE PROFESSOR ED Physician Notification Time ED Physician Notification Time : 11/06/2015 21:58 FOOD SCIENCE PROFESSOR LINNETTE CLEARY RN - 11/06/2015 21:56 FOOD SCIENCE PROFESSOR CAMI DCP GENERIC CODE Tracking Acuity : 3 -Urgent Tracking Group : [facility] ED LINNETTE CLEARY RN - 11/06/2015 21:56 FOOD SCIENCE PROFESSOR Allergy (As Of: 11/06/2015 21:58:27 FOOD SCIENCE PROFESSOR) Allergies (Active) Glutens Estimated Onset Date: Unspecified ; Created By: PATTI ALMENDAREZ LPN; Reaction Status: Active; Category: Drug ; Substance: Glutens ; Type: Allergy ; Updated By: PATTI ALMENDAREZ LPN; Reviewed Date: 11/06/2015 21:58 FOOD SCIENCE PROFESSOR miconazole topical Comments: Comment 1: MICONAZOLE NITRATE ; Created By: Contributor_system, [facility]; Reaction Status: Active ; Category: Drug ; Substance: miconazole topical ; Type: Unknown ;Updated By: Contributor_system, [facility]; Reviewed Date: 11/06/2015 21:58 FOOD SCIENCE PROFESSOR Nuts Estimated Onset Date: Unspecified ; Created By: PATTI ALMENDAREZ LPN; Reaction Status: Active ; Category: Food ; Substance: Nuts ; Type: Allergy ; Updated By: PATTI ALMENDAREZ LPN; Reviewed Date: 11/06/2015 21:58 FOOD SCIENCE PROFESSOR ID Screen Drug Resistant Organism : No Travel Within Last 21 Days : No Contact with someone with Ebola : No LINNETTE CLEARY RN - 11/06/2015 21:56 FOOD SCIENCE PROFESSOR Immunizations Immunizations Current : Yes LINNETTE CLEARY RN - 11/06/2015 21:56 FOOD SCIENCE PROFESSOR Source: [facility] [employer] Document Id: [id number] FOOD SCIENCE PROFESSOR!46 SCIENCE PROFESSOR Azar Villagomez M.D. - 11/06/2015 9:55 PM [...] Note : Chief Complaint Description 11/06/2015 21:56 FOOD SCIENCE PROFESSOR Chief Complaint Description presents with left lateral [...] and this is being followed by a [place] specialist. She has no history of cardiac [...] tablet: 10 mcg, Vaginal, 2xWeek, Member No [id number], 26 tab(s), 2 Refill(s) gabapentin 300 mg [...] (365.9): Resolved.. Surgical history: Upper gastrointestinal endoscopy ([id number]) on 11/30/2013 at 78 Years. MAMMOGRAM ([id number]) on 08/25/2013 at 78 Years. Comments: 10/31/2013 11:24 - SUJATHA MAR LPN [place] Normal may resume in bock Mammogram ([id number]) on 07/15/2012 at 77 Years. Diagnostic colonoscopy ([id number]) on 03/25/2011 at 76 Years. Comments: 03/25/2011 08:49 - SAGRARIO NOLAND MD Sigmoid diverticulosis--not inflamed. Dual-energy X-ray absorptiometry (DXA), bone density study, 1 or more sites; axial skeleton (eg, hips, pelvis, spine).. ([id number]) in the week of 08/14/2010 at 75 Years. Comments: 10/25/2010 09:40 - CARMELO RHODES Hx: [id number] - BONE DEN HIPS/PEL/SP 08/01/2013 19:17 - Contributor source changed to PowerChart. Mammogram ([id number]) on 07/22/2010 at 75 Years. Mammogram ([id number]) on 06/28/2010 at 75 Years. Laminectomy approach to lumbar spine ([id number]) in 2008 at 74 Years. Colonoscopy ([id number]) on 02/01/2009 at 73 Years. Extracapsular cataract removal with insertion of intraocular lens prosthesis (1 stage procedure), manual or mechanical technique (eg, irrigation and aspiration or phacoemulsification) (94839) on 02/26/2007 at 72 Years. Comments: 10/25/2010 20:26 - PATTI ALMENDAREZ SHIPPING AND RECEIVING SPECIALIST left HC COLONOSCOPY W SNARE REMOVAL TUMOR/POLYP/LESION - 12/31/06 on 12/31/2006 at 71 Years. HC ANTER COLPORRHAPHY,BLAD/VAGINA - 03/22/01 - ANTERIOR POSTERIOR REPAIR on 03/22/2001 at 66 Years. HC FLEX SIGMOIDOSCOPY W/WO JAMES SPEC BY BRUSH/WASH - on 06/14/1999 at 64 Years. Repair of cystocele ([id number]) in 1994 at 60 Years. Reduction mammaplasty () on 02/26/1982 at 47 Years. Hysterectomy ([id number]) on 11/04/1966 at 31 Years. Comments: 03/25/2011 08:51 - SAGRARIO NOLAND MD Vaginal Hemorrhoidectomy, internal and external, single column/group; (84085) on 02/26/1959 at 24 Years. C GLAUCOMA [...] . Problem list: All Problems Glaucoma / 06394612 / Confirmed Eye disorder / 379.8 / [...] 627.3 / Confirmed Fracture of rib / 13513586 / Confirmed Chest wall pain* / 786.52 [...] Examination Vital Signs: Vital Signs 11/06/2015 21:56 FOOD SCIENCE PROFESSOR Temperature Core 36.4 DegC LOW Peripheral Pulse [...] Auto Differential) (Order Processing): Stat, 11/06/2015 22:12 FOOD SCIENCE PROFESSOR, Once Comprehensive Metabolic Panel (Order Processing): Stat, 11/06/2015 22:12 FOOD SCIENCE PROFESSOR, Once DDimer (Order Processing): Stat, 11/06/2015 22:12 FOOD SCIENCE PROFESSOR, Once Pro B Natriuretic Peptide (Order Processing): Stat, 11/06/2015 22:12 FOOD SCIENCE PROFESSOR, Once Troponin T (Order Processing): Stat, 11/06/2015 22:12 FOOD SCIENCE PROFESSOR, Once Patient Care: ED Chest Pain (Order Processing) Peripheral IV (Order Processing): 11/06/2015 22:12 FOOD SCIENCE PROFESSOR ED Saline Lock (Order Processing) Peripheral IV (Order Processing): 11/06/2015 22:12 FOOD SCIENCE PROFESSOR Pharmacy: Saline flush (Order Processing): 10 mL, IV Push, PRN, PRN: Maintain IV access aspirin (Order Processing): 324 mg, PO, Once Radiology: XR Chest 1 view portable (Order Processing): 11/06/2015 22:12 FOOD SCIENCE PROFESSOR, Chest pain, Stat, Portable, Once,11/06/2015 22:12 FOOD SCIENCE PROFESSOR, [facility] ED ED: Oxygen - ED (Order Processing): 11/06/2015 22:12 FOOD SCIENCE PROFESSOR, Once, Stat, 11/06/2015 22:12 FOOD SCIENCE PROFESSOR, PRN to keep oxygen saturation above 95%., Launch Orders Pharmacy: Toradol (Order Processing): 15 mg, IV Push, Once. Electrocardiogram:Time 11/06/2015 21:38:00, rate 75, normal sinus rhythm, normal TN & QRS intervals, Nonspecific ST abnormality Minimal voltage criteria for LVH. Results review:Lab results : Lab View 11/06/2015 22:17 FOOD SCIENCE PROFESSOR Hgb 13.3 g/dL Hct 39.3 % WBC 5.2 x10(9)/L RBC 4.39 x10(12)/L MCV 89.5 fL RDW 12.4 % Platelet 164 x10(9)/L Neutro Absolute 2.72 10(9)/L Lymph Absolute 1.72 x10(9)/L [place] Absolute 0.55 x10(9)/L Eos Absolute 0.13 x10(9)/L [...] Disposition: Medically cleared, Discharged: to home. Prescriptions: Chilo 5/325 #20 to use if needed.. Patient [...] PM This document has images extracted. Source: [facility] POWERCHART Document Id: {[id number]} SCIENCE PROFESSOR documented in this encounter Miscellaneous Notes Miscellaneous - Conversion, Historical Provider Ser - 11/06/2015 11:31 PM FOOD SCIENCE PROFESSOR Coding Summary-Paper Based CODING DATE: 11/27/2015 FINAL [place] [facility] STATUS: * Discharged to Home [...] RODNEY Date Saved: 11/14/2015 11:04 am [facility] Document Id: [id number] [place] - Linnette Cleary RDannN. - 11/06/2015 11:30 PM CST Valuables/Belongings Valuables/Belongings Entered On: 11/06/2015 23:30 FOOD SCIENCE PROFESSOR Performed On: 11/06/2015 23:30 FOOD SCIENCE PROFESSOR by LINNETTE CLEARY RN Valuables/Belongingdaria Home Medication Disposition : None brought in with patient LINNETTE CLEARY RN - 11/06/2015 23:30 FOOD SCIENCE PROFESSOR Source: [facility] Acorio Document Id: [id number] FOOD SCIENCE PROFESSOR!3 SCIENCE PROFESSOR Cherylcellaneous - Linnette Cleary RDannN. - 11/06/2015 9:31 PM CST Facility Charge Ticket 2.0 11.0 DX Facility Charge Ticket 2.0 11.0 DX Entered On: 11/06/2015 23:31 FOOD SCIENCE PROFESSOR Performed On: 11/06/2015 21:31 FOOD SCIENCE PROFESSOR by LINNETTE CLEARY RN Facility Charge Ticket [...] Nursing Notes ED Primary Assessment,11/06/15 22:02,LINNETTE CLEARY PATENT ENGINEER Pain Assessment,11/06/15 23:30,LINNETTE CLEARY RN Lynx Nursing Assessment : Triage and 1-2 nursing assessments Lynx Disposition : Discharge Lynx Total Points with Diagnosis Control : 14 Lynx Visit Level : 08497 Level 5 Treatments Prior to Arrival : None LINNETTE CLEARY RN - 11/06/2015 23:30 FOOD SCIENCE PROFESSOR Source: [facility] POWERCHART Document Id: [id number] FOOD SCIENCE PROFESSOR!18 SCIENCE PROFESSOR documented in this encounter Plan of Treatment Not on filedocumented as of this encounter Procedures Procedure Name Priority Date/Time Associated Comments Diagnosis AUTOMATED Routine 11/06/2015 10:17 Results for this DIFFERENTIAL, B PM FOOD SCIENCE PROFESSOR procedure ar e in the results section. NT-PRO B-TYPE Routine 11/06/2015 10:17 Results fo r this NATRIURETIC PEPTIDE PM FOOD SCIENCE PROFESSOR procedur e are in (BNP), S the results section. D-DIMER, P Routine 11/06/2015 10:17 Results for this PM FOOD SCIENCE PROFESSOR procedure are i n the results section. CBC WITH DIFFERENTIAL, Routine 11/06/2015 10:17 R esults for this B PM FOOD SCIENCE PROFESSOR procedure are i n the results section. TROPONIN T, 5TH GEN, P Routine 11/06/2015 10:17 R esults for this PM FOOD SCIENCE PROFESSOR procedure are i n the results section. COMPREHENSIVE Routine 11/06/2015 10:17 Results fo r this METABOLIC PANEL, S/P PM FOOD SCIENCE PROFESSOR procedu re are in the results section. documented in this encounter Results Automated Differential (11/06/2015 10:17 PM FOOD SCIENCE PROFESSOR) athologist Signature Absolute 2.72 1.70 - POWERCHART Neutrophils 7.00 109L Lymphocytes 1.72 0.90 - POWERCHART 2.90 X109L Monocytes 0.55 0.30 - POWERCHART 0.90 X109L Eosinophils 0.13 0.05 - POWERCHART 0.50 X109L Absolute 0.03 0.00 - POWERCHART Basophil 0.30 X109L Specimen Anatomical Collection Method Collection Time Receive d Time (Source) Location / / Volume Laterality Blood 11/06/2015 10:17 11/06/2015 PM FOOD SCIENCE PROFESSOR 10:17 PM FOOD SCIENCE PROFESSOR Azar Villagomez M.D. LAB BLOOD ADD-ON Performing Organization Address City/State/ZIP Code Phon e Number POWERCHART D-Dimer (11/06/2015 10:17 PM FOOD SCIENCE PROFESSOR) athologist Signature D-Dimer, P 0.23 0.00 - [...] / Volume Laterality Blood 11/06/2015 10:17 PM FOOD SCIENCE PROFESSOR Azar Villagomez M.D. LAB BLOOD ADD-ON Performing Organization Address City/State/ZIP Code Phon e Number POWERCHART CBC with Differential (11/06/2015 10:17 PM FOOD SCIENCE PROFESSOR) P athologist Signature Leukocytes 5.2 3.4 - 10.5 POWERCHART X109L Erythrocytes 4.39 3.90 - 5.03 POWERCHART [id number] Hemoglobin 13.3 12.0 - 15.5 POWERCHART GDL Hematocrit 39.3 34.9 - 44.5 POWERCHART MCV 89.5 81.6 - 98.3 POWERCHART FL HX RDW 12.4 11.9 - 15.5 POWERCHART Platelet Count 164 150 - 450 POWERCHART X109L Specimen (Source) Anatomical Collection Method Collection Time Re ceived Time Location / / Volume Laterality Blood 11/06/2015 10:17 PM FOOD SCIENCE PROFESSOR Azar Villagomez M.D. LAB BLOOD ADD-ON Performing Organization Address City/State/ZIP Code Phon e Number POWERCHART Troponin T (11/06/2015 10:17 PM FOOD SCIENCE PROFESSOR) P athologist Signature Troponin T, S <0.01 <=0.01 NGML POWERCHART Comment: 0.03 - 0.1 ng/mL Intermediate Z one Specimen (Source) Anatomical Collection Method Collection Time Re ceived Time Location / / Volume Laterality Blood 11/06/2015 10:17 PM FOOD SCIENCE PROFESSOR Azar Villagomez M.D. LAB BLOOD ADD-ON Performing Organization Address City/State/ZIP Code Phon e Number POWERCHART NT-Pro B-Type Natriuretic Peptide (BNP) (11/06/2015 10:17 PM FOOD SCIENCE PROFESSOR) P athologist Signature B-Type 108.30 10.00 - [...] / Volume Laterality Blood 11/06/2015 10:17 PM FOOD SCIENCE PROFESSOR Azar Villagomez M.D. LAB BLOOD ADD-ON Performing Organization Address City/State/ZIP Code Phon e Number POWERCHART (ABNORMAL) CMP (Comprehensive Metabolic Panel) (11/06/2015 10:17 PM FOOD SCIENCE PROFESSOR) [facility] gist Method Time Signature Alanine [...] POWERCHART MMOLL HXeGFR (MDRD) 60 >=60 POWERCHART [id number] 2 eGFR Black/ >60 >=60 POWERCHART Cymro [id number] 2 Bilirubin, Total, S 0.4 0.1 - 1.0 POWERCHART MGDL Total Protein, S 7.0 6.3 - 7.9 POWERCHART GDL Glucose 91 70 - 139 POWERCHART MGDL Specimen (Source) Anatomical Collection Method Collection Time Re ceived Time Location / / Volume Laterality Blood 11/06/2015 10:17 PM FOOD SCIENCE PROFESSOR Azar Villagomez M.D. LAB BLOOD ADD-ON Performing Organization Address City/State/ZIP Code Phon e Number POWERCHART documented in this encounter Visit Diagnoses Not on filedocumented in this encounter
--- OUTSIDE RECORDS SUMMARY | 2022-05-23 11:32 | XMS_ITS | Encounter Summary ---
:1935 Author Organization [facility] Address [address] [place] [address] Care Team Providers Name Role Phone Unavailable Primary Care Provider Unavailable Encounter Details Date Type Department Care Team Description 10/06/2014 Hospital Encounter HX [facility] Mary Varma, CYRIL, C.N.P., D. N.P. [address] [place] [address] (Wo rk) Social History Tobacco Use Types Packs/Day Years Used Date Smoking Tobacco: Never Assessed Sex Assigned at Date Recorded Not on file documented as of this encounter Last Filed Vital Signs Vital Sign Reading Time Taken Comments Blood Pressure 118/66 10/06/2014 8:26 AM CATSHOVEL DRIVER Pulse 78 10/06/2014 8:26 AM CATSHOVEL DRIVER Temperature - - Respiratory Rate 16 10/06/2014 8:26 AM CATSHOVEL DRIVER Oxygen Saturation - - Inhaled Oxygen Concentration - - Weight 75.4 kg (166 lb 3.6 oz) 10/06/2014 8:26 AM CATSHOVEL DRIVER Height - - Body Mass Index 29.9 [...] 10/06/2014 9:09 AM CST Ambulatory Patient Summary [address] Prasanth Hernandez [place] [id number] Visit Information Name: KATHRYN LEON [facility] Number: [id number] Current Date: 10/06/2014 09:09:29 Physicians Attending Provider: MARY VARMA RN, LOAN COUNSELOR Primary Care Provider: MARY VARMA RN, LOAN COUNSELOR KATHRYN LEON has been given the following [...] Vaginal, 2 times a week Member No [id number] ferrous sulfate (ferrous sulfate 325 mg (65 mg elemental iron) oral tablet) 1 Tablet(s), Oral, once a day fexofenadine-pseudoephedrine (Rochelle-D 12 Hour 60 mg-120 mg oral tablet, extended release) 1 Tablet(s), Oral, two times a day [facility] [phone] fluticasone nasal (Flonase 0.05 mg/inh nasal spray) 2 [place](s), Nostrils(Both), once a day gabapentin (gabapentin 300 [...] emergency. Electronically Signed By: MARY VARMA RN, LOAN COUNSELOR Signed On:06-OCT-2014 09:09:08 Your Allergies & Intolerances [...] Appointments Date Time Location Provider 10/06/2014 11:30 [facility] Ultrasound [facility] US Room 1 Attention: Contact your local Clinic if further appointment detail needed. Your Goals/Additional instructions: Source: [facility] POWERCHART Document Id: [id number] HOVEL DRIVER Miscellaneous - Mary Varma APRN, C.N.P. - 10/06/2014 9:09 AM CST Ambulatory Discharge Medication List [address] [id number] Visit Information Name: CAROLYNKATHRYN COLON [facility] Number: [id number] Visit Date: 10/06/2014 09:09:27 Attending Provider: MARY VARMA RN, LOAN COUNSELOR Primary Care Provider: MARY VARMA RN, LOAN COUNSELOR KATHRYN LEON has been given the following [...] Vaginal, 2 times a week Member No [id number] ferrous sulfate (ferrous sulfate 325 mg (65 mg elemental iron) oral tablet) 1 Tablet(s), Oral, once a day fexofenadine-pseudoephedrine (Rochelle-D 12 Hour 60 mg-120 mg oral tablet, extended release) 1 Tablet(s), Oral, two times a day [facility] [phone] fluticasone nasal (Flonase 0.05 mg/inh nasal spray) 2 [place](s), Nostrils(Both), once a day gabapentin (gabapentin 300 [...] emergency. Electronically Signed By: MARY VARMA RN, LOAN COUNSELOR Signed On:06-OCT-2014 09:09:08 Additional Information: Source: [facility] POWERCHART Document Id: [id number] HOVEL DRIVER Miscellaneous - Sujatha Batista LDannPDannN. - 10/06/2014 8:26 AM CST Adult Extractor Tender Raw Stock Intake/History Adult Extractor Tender Raw Stock Intake/History Entered On: 10/06/2014 8:30 CATSHOVEL DRIVER Performed On: 10/06/2014 8:26 CATSHOVEL DRIVER by SUJATHA BATISTA LPN Intake Chief Complaint [...] kg SUJATHA BATISTA LPN - 10/06/2014 8:26 CATSHOVEL DRIVER General Info Information Given By : Patient Preferred Communication Mode : Verbal Languages : Estonian Is Patient Female and 13-50 no hysterectomy : No SUJATHA BATISTA LPN - 10/06/2014 8:26 CATSHOVEL DRIVER Subjective Pain Symptoms : No SUJATHA BATISTA LPN - 10/06/2014 8:26 CATSHOVEL DRIVER Dependent Habits Tobacco Use/Currently Using : Yes Exposure to Tobacco Smoke : Care provider denies smoking in home Smoking Status : Never smoker SUJATHA BATISTA LPN - 10/06/2014 8:26 CATSHOVEL DRIVER Tobacco Use Grid Last Use : never SUJATHA BATISTA LPN - 10/06/2014 8:26 CATSHOVEL DRIVER Caffeine Use Grid Caffeine Use : Current Type : Coffee Frequency : Weekly SUJATHA BATISTA LPN - 10/06/2014 8:26 CATSHOVEL DRIVER Recreational Drug Use Grid Drug Use : None SUJATHA BATISTA LPN 10/06/2014 8:26 CATSHOVEL DRIVER ID Screen Drug Resistant Organism : No Travel Within Last 21 Days : No SUJATHA BATISTA LPN - 10/06/2014 8:26 CATSHOVEL DRIVER Source: [employer] Document Id: [id number] CATSHOVEL DRIVER!39 HOVEL DRIVER documented in this encounter Plan of Treatment Not on filedocumented as of this encounter Procedures Procedure Name Priority Date/Time Associated Comments Diagnosis HXZZORDERS Routine 10/06/2014 8:50 AM Results f or this CATSHOVEL DRIVER procedure are i n the results section. HCV RNA DETECT/QUANT Routine 10/06/2014 8:50 AM R esults for this CATSHOVEL DRIVER procedure are i n the results section. IRON AND TOT Routine 10/06/2014 8:50 AM Results f or this IRON-BINDING CATSHOVEL DRIVER procedure are i n CAPACITY, S/P the results section. HBE ANTIBODY Routine 10/06/2014 8:50 AM Results f or this CATSHOVEL DRIVER procedure are i n the results section. ALPHA-FETOPROTEIN Routine 10/06/2014 8:50 AM Resu lts for this (AFP) TM, S CATSHOVEL DRIVER procedure are i n the results section. HEPATITIS BE AG Routine 10/06/2014 8:50 AM Result s for this CATSHOVEL DRIVER procedure are i n the results section. HBS ANTIBODY, SERUM Routine 10/06/2014 8:50 AM Re sults for this CATSHOVEL DRIVER procedure are i n the results section. HEPATITIS B SURFACE Routine 10/06/2014 8:50 AM Re sults for this ANTIGEN CATSHOVEL DRIVER procedure are i n the results section. PROTHROMBIN TIME Routine 10/06/2014 8:50 AM Resul ts for this (PT), P CATSHOVEL DRIVER procedure are i n the results section. ALKALINE PHOSPHATASE, Routine 10/06/2014 8:50 AM Results for this S/P CATSHOVEL DRIVER procedure are i n the results section. GAMMA-GLUTAMYLTRANSFE Routine 10/06/2014 8:50 AM Results for this RASE (GGT), S/P CATSHOVEL DRIVER procedure ar e in the results section. BILIRUBIN DIRECT, S/P Routine 10/06/2014 8:50 AM Results for this CATSHOVEL DRIVER procedure are i n the results section. BILIRUBIN, TOT, S/P Routine 10/06/2014 8:50 AM Re sults for this CATSHOVEL DRIVER procedure are i n the results section. ALBUMIN, S/P Routine 10/06/2014 8:50 AM Results f or this CATSHOVEL DRIVER procedure are i n the results section. documented in this encounter Results PT (Prothrombin Time) with INR (10/06/2014 8:50 AM CATSHOVEL DRIVER) Analysis Performed At [facility] logist Time Signature INR 0.93 0.90 - 1.16 POWERCHART Prothrombin 9.5 8.7 - 11.8 POWERCHART Time, P SECONDS Specimen (Source) Anatomical Collection Method Collection Time Re ceived Time Location / / Volume Laterality Blood 10/06/2014 8:50 AM CATSHOVEL DRIVER Mary Varma APRN, C.N.P., D.N.P. LAB BLOOD ADD-ON Performing Organization Address City/State/ZIP Code Phon e Number POWERCHART HCV RNA Detect / Quant (10/06/2014 8:50 AM CATSHOVEL DRIVER) [facility] gist Method Time Signature HCV RNA See Comment POWERCHART Detect/Quant, S Comment: HCV RNA Detect/Quant, S was cancelled on 10/07/2014 at 10:40; Quantification not performed due to negative HCV antibody result. Test Performed by: [facility] [place] [address] Attraction Attendant: Lee Coburn Specimen (Source) Anatomical Collection Method Collection Time Re ceived Time Location / / Volume Laterality Blood 10/06/2014 8:50 AM CATSHOVEL DRIVER Angy Schmidt APRN.N.P., D.N.P. LAB MICROBIOLOGY - BLOOD ORDERABLES Performing Organization Address [facility] Phon e Number POWERCHART HXZZORDERS (10/06/2014 8:50 AM CATSHOVEL DRIVER) athologist Signature HXHep C Negative Negative POWERCHART Ab-[place] Comment: Mhtsit-zo-alhqfn ratio is <1.00. Test Performed by: [place] [address] Attraction Attendant: Lee Coburn Specimen (Source) Anatomical Collection Method Collection Time Re ceived Time Location / / Volume Laterality Blood 10/06/2014 8:50 AM CATSHOVEL DRIVER Mary Varma APRN C.N.P., D.N.P. LAB HISTORICAL ORDE RS Performing Organization Address [facility] Phon e Number POWERCHART Hepatitis Be Ag (10/06/2014 8:50 AM CATSHOVEL DRIVER) athologist Signature Hepatitis Be Negative Negative POWERCHART Ag, S Comment: Test Performed by: [place] [address] Attraction Attendant: Lee Coburn Specimen (Source) Anatomical Collection Method Collection Time Re ceived Time Location / / Volume Laterality Blood 10/06/2014 8:50 AM CATSHOVEL DRIVER Mary Varma APRN, C.N.P., D.N.P. LAB BLOOD ADD-ON Performing Organization Address [facility] Phon e Number POWERCHART HBe Antibody (10/06/2014 8:50 AM CATSHOVEL DRIVER) athologist Signature HBe Antibody, Negative Negative POWERCHART S Comment: Test Performed by: [place] [address] Attraction Attendant: Lee Coburn Specimen (Source) Anatomical Collection Method Collection Time Re ceived Time Location / / Volume Laterality Blood 10/06/2014 8:50 AM CATSHOVEL DRIVER Barbara Schmidt APRN.Igor, Suhas.N.PDann LAB MICROBIOLOGY - BLOOD ORDERABLES Performing Organization Address [facility] Phon e Number POWERCHART Hepatitis B Surface Antigen (10/06/2014 8:50 AM CATSHOVEL DRIVER) P athologist Signature HBs Antigen, S Negative Negative POWERCHART Comment: Test Performed by: [facility] [address] [place] [address] Attraction Attendant: Lee Coburn Specimen (Source) Anatomical Collection Method Collection Time Re ceived Time Location / / Volume Laterality Blood 10/06/2014 8:50 AM CATSHOVEL DRIVER Esperanza Schmidt APRNN.PDann, D.N.PDann LAB MICROBIOLOGY - BLOOD ORDERABLES Performing Organization Address City/[facility] Code Phon e Number POWERCHART Hepatitis B Surface, Ab (10/06/2014 8:50 AM CATSHOVEL DRIVER) P athologist Signature HBs Antibody, Positive POWERCHART S Comment: Patient is considered to be immune to in fection with HBV. REFERENCE VALUE------ Unvaccinated: Negative Vaccinated: Positive HX Hep Bs Ab n-[place] [facility] Comment: REFERENCE VALUE------ Unvaccinated: <5.0 Vaccinated: >=12.0 Test Performed by: [facility] [address] [place] [id number] Attraction Attendant: Lee Coburn Specimen (Source) Anatomical Collection Method Collection Time Re ceived Time Location / / Volume Laterality Blood 10/06/2014 8:50 AM CATSHOVEL DRIVER Mary Varma APRN, C.N.P., Suhas.N.P. LAB MICROBIOLOGY - BLOOD ORDERABLES Performing Organization Address City/State/ZIP Code Phon e Number POWERCHART Iron and Total Iron-Binding Capacity (10/06/2014 8:50 AM CATSHOVEL DRIVER) athologist Signature Iron 118 35 - 145 POWERCHART MCGDL Total Iron 254 250 - 400 POWERCHART Binding Capacity MCGDL Percent 46 14 - 50 POWERCHART Saturation Comment: Test Performed by: [facility] [employer] [address] Attraction Attendant: Lee Coburn Specimen (Source) Anatomical Collection Method Collection Time Re ceived Time Location / / Volume Laterality Blood 10/06/2014 8:50 AM CATSHOVEL DRIVER Mary Varma APRN, C.N.P., Suhas.N.P. LAB BLOOD ADD-ON Performing Organization Address City/[facility] Code Phon e Number POWERCHART AFP (Alpha-Fetoprotein) Tumor Marker (10/06/2014 8:50 AM CATSHOVEL DRIVER) athologist Signature HX AFP-[place] 5.8 [employer] POWERCHART Comment: REFERENCE VALUE------ <6.0 Reference values are for non- subjects only; production of AFP elevates values in women. ADDITIONAL INFORMATIO N The testing method is an immunoenzymatic assay manufactured by [employer] and performed on the [employer] DxI 800. Values obtained with different assay met hods or kits may be different and cannot be used interchangeably. Test results cannot be interpreted as ab solute evidence for the presence or absence of malignant disease. Alpha-Fetoprotein values are not interpr etable in females for the investigation o f malignant disease. Test Performed by: [facility] [employer] - [address] [address] Attraction Attendant: Lee Coburn Specimen (Source) Anatomical Collection Method Collection Time Re ceived Time Location / / Volume Laterality Blood 10/06/2014 8:50 AM CATSHOVEL DRIVER Esperanza Schmidt APRNN.Igor, D.N.P. LAB BLOOD ADD-ON Performing Organization Address City/State/ZIP Code Phon e Number POWERCHART Albumin (10/06/2014 8:50 AM CATSHOVEL DRIVER) P athologist Signature Albumin, S 4.1 3.5 - 5.0 POWERCHART GDL Specimen (Source) Anatomical Collection Method Collection Time Re ceived Time Location / / Volume Laterality Blood 10/06/2014 8:50 AM CATSHOVEL DRIVER Angy Schmidt APRN.N.P., D.N.P. LAB BLOOD ADD-ON Performing Organization Address City/[facility]/ZIP Code Phon e Number POWERCHART Alkaline Phosphatase (10/06/2014 8:50 AM CATSHOVEL DRIVER) P athologist Signature Alkaline 63 55 - 142 UL POWERCHART Phosphatase, S Specimen (Source) Anatomical Collection Method Collection Time Re ceived Time Location / / Volume Laterality Blood 10/06/2014 8:50 AM CATSHOVEL DRIVER Esperanza Schmidt APRNN.P., D.N.P. LAB BLOOD ADD-ON Performing Organization Address City/State/ZIP Code Phon e Number POWERCHART (ABNORMAL) GGT (Gamma-Glutamyltransferase) (10/06/2014 8:50 AM CATSHOVEL DRIVER) Component Value Ref Test Analysis Performed At Patholo gist Range Method Time Signature Gamma 119 (H) 6 - 29 POWERCHART Glutamyltransferase UL (GGT), S Specimen (Source) Anatomical Collection Method Collection Time Re ceived Time Location / / Volume Laterality Blood 10/06/2014 8:50 AM CATSHOVEL DRIVER Angy Schmidt APRN.N.P., D.N.P. LAB BLOOD ADD-ON Performing Organization Address City/State/ZIP Code Phon e Number POWERCHART Bilirubin Direct (10/06/2014 8:50 AM CATSHOVEL DRIVER) P athologist Signature Bilirubin, 0.1 0.0 - 0.3 POWERCHART Direct, S MGDL Specimen (Source) Anatomical Collection Method Collection Time Re ceived Time Location / / Volume Laterality Blood 10/06/2014 8:50 AM CATSHOVEL DRIVER Angy Schmidt APRN.N.P., D.N.P. LAB BLOOD ADD-ON Performing Organization Address City/State/ZIP Code Phon e Number POWERCHART Bilirubin, Total (10/06/2014 8:50 AM CATSHOVEL DRIVER) P athologist Signature Bilirubin, 0.3 0.1 - 1.0 POWERCHART Total, S MGDL Specimen (Source) Anatomical Collection Method Collection Time Re ceived Time Location / / Volume Laterality Blood 10/06/2014 8:50 AM CATSHOVEL DRIVER Angy Schmidt APRN.N.P., D.N.P. LAB BLOOD ADD-ON Performing Organization Address City/State/ZIP Code Phon e Number POWERCHART documented in this encounter Visit Diagnoses Not on filedocumented in this encounter
--- OUTSIDE RECORDS SUMMARY | 2022-05-23 11:32 | XMS_ITS | Encounter Summary ---
:1935 Author Organization [facility] Address [address] [place] [address] Care Team Providers Name Role Phone Unavailable Primary Care Provider Unavailable Encounter Details Date Type Department Care Team Description 10/04/2014 Hospital Encounter [facility]X [facility] Mary Cortez AP RN, C.N.P., D.N.P. [address] [place] [address] [phone] (Wo rk) Social History Tobacco Use [...] Historical Provider Ser - 10/04/2014 11:59 PM WEDGER Coding Summary-Paper Based CODING DATE: 10/10/2014 FINAL [facility] STATUS: * Discharged to Home or [...] CONNORS Date Saved: 10/10/2014 01:44 pm Source: [facility] GamesCHART Document Id: [id number] documented in this encounter Plan of Treatment Not on filedocumented as of this encounter Visit Diagnoses Not on filedocumented in this encounter
--- OUTSIDE RECORDS SUMMARY | 2022-05-23 11:32 | XMS_ITS | Encounter Summary ---
:1935 Author Organization [facility] Address [address] [place] [address] Care Team Providers Name Role Phone Unavailable Primary Care Provider Unavailable Encounter Details Date Type Department Care Team Description 11/07/2013 Hospital Encounter HX [facility] [place] Varma, SATINDER RN, C.N.P., D.N.P. [address] [address] [phone] (Wo rk) Social History Tobacco Use [...] Letter 08 November 2013 BRIANA MATHEWZ [address] [place] [phone] Dear BRIANA LEON, I am pleased to [...] 11/07/2013 Negative - Sincerely, AL[place] VARMA [address] [place] [address] Electronic Signature Electronically Signed By: AL[place]ANIA VARMA RN, LAMINATION MACHINE OPERATOR On: 08 November 2013 This document has images extracted. Source: [facility] POWERCHART Document Id: [id number] documented in this encounter Plan of Treatment Not on filedocumented as of this encounter Procedures Procedure Name Priority Date/Time Associated Diagnosis Comme nts OCCULT BLOOD, QL, Routine 11/07/2013 7:00 AM Resu lts for this IMMUNOCHEMICAL, F SYSTEMS TECHNOLOGIST procedure are in the results section. documented in this encounter Results Fecal Occult Blood, Colorectal Cancer Screen, Qualitative, Immunochemical (11/07/2013 7:00 AM SYSTEMS TECHNOLOGIST) athologist Signature Occult Blood, Negative Negative POWERCHART Fecal Comment: Negative result. ??This test will not de tect upper gastrointestinal bleeding; the HemoQuant test ([id number])should be ordered if clinically indicated. Test Performed by: [address] [address] School Lunch Monitor: Scot ybarra III, M.D. Specimen (Source) Anatomical Collection Method Collection Time Re ceived Time Location / / Volume Laterality Stool 11/07/2013 7:00 AM SYSTEMS TECHNOLOGIST [place] Varma APRN, C.N.P., D.N.P. LAB BODY FLUIDS AND STOOLS ORDERABLES Performing Organization Address City/State/ZIP Code Phon e Number POWERCHART documented in this encounter Visit Diagnoses Not on filedocumented in this encounter
--- OUTSIDE RECORDS SUMMARY | 2022-05-23 11:32 | XMS_ITS | Encounter Summary ---
:1935 Author Organization [facility] Address [address] [place] [address] Care Team Providers Name Role Phone Unavailable Primary Care Provider Unavailable Encounter Details Date Type Department Care Team Description 11/30/2013 Hospital Encounter HX [facility] Gerhard Aquino M.D. [address] [place], [place] [address] ([facility]) Social History Tobacco Use Types Packs/Day [...] 11/30/2013 9:55 AM CDT Hospital Discharge Instructions [facility] [address] [place], [place] [id number] Patient Discharge Instructions Name: KATHRYN LEON Current Date: 11/30/2013 09:55:55 : 1935 12:00 AM [facility] Number: [id number] Patient Address: [address] [place] [phone] Patient Primary Care Provider: Name: ALBANIA VARMA RN, SENIOR CREDIT OFFICER Discharge Diagnosis: [facility] in [place] would like to thank you for allowing [...] 1 Tablet(s), Oral, two times a day [facility] [phone] fluticasone nasal (Flonase 0.05 mg/inh nasal spray) 2 [place](s), Nostrils(Both), once a day gabapentin (gabapentin 300 [...] Date Time Location Reason Provider 12/05/2013 10:00 [facility] Family Med motivation exercises [facility] Health Aircraft Powerplant Repairer CAROLYN Strange MARY CATHERINE , have received the attached patient education materials/instructions and have verbalized understanding: Patient Signature Date Time Care Provider Signature Date Time 87774 Discharge Instructions (Adults)Endoscopy/Colonoscopy/Flexible Sigmoidoscopy Post-Procedure Discharge Instructions [...] call your doctor or the Emergency Department ([phone])if you have any questions OR notice any [...] IV site. OTHER SPECIFIC INSTRUCTIONS: none Source: [facility] POWERCHART Document Id: [id number] Gerhard Roman M.D. - 11/30/2013 9:55 AM CDT Hospital Discharge Medication List [address] [address] Discharge Medication List Name: KATHRYN LEON Current Date: 11/30/2013 09:55:53 : 1935 12:00 AM [facility] Number: [id number] Patient Address: [address] [place] [phone] Patient Primary Care Provider: Name: ALBANIA VARMA RN, SENIOR CREDIT OFFICER Discharge Diagnosis: [facility] in [place] would like to thank you for allowing [...] 1 Tablet(s), Oral, two times a day World Review[employer] [phone] fluticasone nasal (Flonase 0.05 mg/inh nasal spray) 2 [place](s), Nostrils(Both), once a day gabapentin (gabapentin 300 [...] GERHARD ROMAN MD Signed On:30-NOV-2013 09:55:44 Source: [facility] POWERCHART Document Id: [id number] documented in this encounter Medications at Time [...] NA Wearing Patient Gown : Yes Voided juvenile corrections officer to procedure : Yes LIBIA [...] Valuables : Jacket, Pants, Shirt, Shoes LIBIA RORDIGUEZ RN - 11/30/2013 8:10 CDT Room Orientation/Facility [...] PATTI ALMENDAREZ LPN; Reviewed Date: 11/16/2013 10:06 CYBER SYSTEMS ENGINEER Nuts Estimated Onset Date: Unspecified ; Created By: PATTI ALMENDAREZ LPN; Reaction Status: Active ; Category: Food ; Substance: Nuts ; Type: Allergy ; Updated By: PATTI ALMENDAREZ LPN; Reviewed Date: 11/16/2013 10:06 CYBER SYSTEMS ENGINEER Preprocedural Pause Correct Patient Identity : Patient verbalizes self, Patient wristband ID, Family/responsible democrat ID, Patient verbalizes Correct Procedure Site and Side : upper endoscopy Correct Procedure Site/Side Verified By : Patient/responsible democrat, Nurse, MD Site Marking : N/A Pre-Procedure Pause Verbal Confirm. of : Procedure, Site, Side, Patient Position, Patient ID LMJONATHAN LIBIAMYRA Naranjo RN - 11/30/2013 8:10 CDT Source: [employer] POWERCHART Document Id: [id number] CDT!97 Gerhard Roman M.D. - 11/30/2013 12:00 AM CDT HGIEGD PREOPERATIVE DIAGNOSIS: Dysphagia. POSTOPERATIVE DIAGNOSIS: Hiatal hernia and esophagitis. PROCEDURE PERFORMED: Upper endoscopy with biopsy and esophageal dilation. SURGEON Dr. Gerhard Roman. ANESTHESIA: MAC. MARINE SUPERINTENDENT: Matthew Moore. INDICATIONS: Ms. Leon is a [...] thereafter induced under deep sedation by the section supervisor. The video gastroscope was inserted and advanced [...] and we dilated her esophagus using a 50-Icelandic Norton esophageal bougie without difficulty and then went up to the 54-Icelandic bougie also without difficulty. Procedure was then [...] ROMAN MD On: 11/30/2013 10:41 AM Source: [facility] MHSDOLBEYNONRADSYS Document Id: [id number] documented in this encounter Nursing Notes Libia Rodriguez R.N. - 11/30/2013 8:17 AM CDT Influenza Immunization Asmt Influenza Immunization Asmt Entered On: 11/30/2013 8:17 CDT Performed On: 11/30/2013 8:17 CDT by LIBIA RODRIGUEZ RN Influenza Protocol Influenza Vaccine Exclusions : Previously immunized this flu season LIBIA RODRIGUEZ RN - 11/30/2013 8:17 CDT Source: [facility] POWERCHART Document Id: [id number] CDT!3 Libia Rodriguez R.N. - 11/30/2013 8:17 AM CDT Pneumonia Immunization Assessment Pneumonia Immunization Assessment Entered On: 11/30/2013 8:18 CDT Performed On: 11/30/2013 8:17 CDT by LIBIA RODRIGUEZ RN Pneumonia Protocol Pneumococcal Vaccine Exclusions : Patient has received the vaccine after age of 65 Pneumococcal Exclusion Candidate Status : No LIBIA RODRIGUEZ RN - 11/30/2013 8:17 CDT Source: [facility] POWERCHART Document Id: [id number] CDT!4 Libia Rodriguez R.N. - 11/30/2013 8:01 [...] Information Given By : Patient Languages : Chilean Have you received chemotherapy in last 48 hours? : LIBIA Campbell RN - 11/30/2013 8:01 CDT Allergy (As Of: 11/30/2013 08:10:31 CDT) Allergies (Active) Glutens Estimated Onset Date: Unspecified ; Created By: PATTI ALMENDAREZ LPN; Reaction Status: Active; Category: Drug ; Substance: Glutens ; Type: Allergy ; Updated By: PATTI ALMENDAREZ LPN; Reviewed Date: 11/16/2013 10:06 CYBER SYSTEMS ENGINEER Nuts Estimated Onset Date: Unspecified ; Created By: PATTI ALMENDAREZ LPN; Reaction Status: Active ; Category: Food ; Substance: Nuts ; Type: Allergy ; Updated By: PATTI ALMENDAREZ LPN; Reviewed Date: 11/16/2013 10:06 CYBER SYSTEMS ENGINEER Anesth/Transfusion Anesthesia/Transfusions : Prior anesthesia LIBIA RODRIGUEZ [...] None Living Situation : Home with family halfway Equipment : None Sensory Deficits : None [...] Psychosocial Adult Domestic Abuse Concerns : None Yazdanism Preference : Unknown LIBIA RODRIGUEZ RN - [...] Discharge To, Anticipated : Home with family halfway Treatments, Anticipated : None Home Equipment, Anticipated [...] Integrity : Intact Mucous Membrane Color : [place] Mucous Membrane Description : Moist Skin Color : Normal for ethnicity Skin Description : Dry Skin Temperature : Warm LIBIA RODRIGUEZ RN - 11/30/2013 8:01 CDT [facility] Document Id: [id number] CDT!134 documented in this encounter Miscellaneous Notes [...] 02 January 2014 11:43:49 CDT From: ALBANIA VAMRA RN, CNP Sent: 01/02/2014 11:43:49 CDT Show [...] with increased dose of gabapentin. Addendum by ALABNIA VARMA RN, CNP on 02 January 2014 [...] 2013 09:47:08 CDT From: ALBANIA VARMA RN, SENIOR CREDIT OFFICER To: GERHARD ROMAN MD; Sent: 12/14/2013 09:47:08 [...] Name Value 11/30/2013 09:05 Surg IV Accn-Olivier [id number] 11/30/2013 09:05 Surg IV Addr-Olivier See Comment 11/30/2013 09:05 Surg IV Cmt-Olivier See Comment 11/30/2013 09:05 Surg IV FnlDiag-Olivier See Comment 11/30/2013 09:05 Surg IV Ref-Olivier See Comment 11/30/2013 09:05 Surg IV SgnPath-Olivier See Comment 11/30/2013 09:05 Surg IV Ts Desc-Olivier See Comment Source: [facility] POWERCHART Document Id: [id number] Electronically signed by Dustin [facility] Ad[facility] Sales Executive [id number] at 02/10/2017 12:35 PM CDT Miscellaneous - [...] Integrity : Intact Mucous Membrane Color : [place] Mucous Membrane Description : Moist Skin Color [...] calm RASS Score : 0 LIBIA RODRIGUEZ RN - 11/30/2013 9:36 CDT Robel Sensory [...] RODRIGUEZ RN - 11/30/2013 9:36 CDT [facility] POWER[facility] Document Id: [id number] CDT!94 Miscellaneous - Libia Rodriguez R.N. - [...] BUL : Clear BLL : Clear LIBIA RODIRGUEZ RN 11/30/2013 9:21 CDT GI/ Nausea Symptoms : No LIBIA RODRIGUEZ RN 11/30/2013 9:21 CDT Integumentary Integumentary Patient Stated Symptoms : None Skin Turgor : Elastic Skin Integrity : Intact Mucous Membrane Color : [place] Mucous Membrane Description : Moist LIBIA RODRIGUEZ [...] RODRIGUEZ RN - 11/30/2013 9:21 CDT Source: [facility] POWERCHART Document Id: [id number] CDT!88 documented in this encounter Plan of Treatment Not on filedocumented as of this encounter Procedures Procedure Name Priority Date/Time Associated Diagnosis Comme nts SURGICAL PATHOLOGY Routine 11/30/2013 9:05 AM Res ults for this CDT procedure are i n the results section. documented in this encounter Results Pathology Anatpath Wet Tissue (11/30/2013 9:05 AM CDT) [facility] Method Time Signature HXSurg IV [id number] POWERCHART [facility] HXSurg IV See Comment POWERCHART [facility]-[place] Comment: RESULT: Gerhard Roman M.D. HXSurg IV [facility] See Comment POWERCHA RT Comment: [address] [address] SLIDE DISPOSITION: HXSurg IV [facility] See Comment POWER CHART Comment: [id number] A. ??Received in formalin labeled with t he patient's name and medical record number as [id number] and GE junction biopsy are multiple pale [...] patient's name and medical record number as [id number] and mid eso phagus are five pale rudd-translucent irregular soft tissue fr agments, ranging from 0.3-0.7 cm in greatest dimension. Specim ens are submitted en toto in cassette B1. Part A: ??GE junction 1 GE junction Part B: ??Esophagus Biopsy; mid esophagu s 1 Esophagus Biopsy; mid esopha XRSR Path HXSurg IV [facility] See Comment POWER CHART Comment: A) ??Gastroesophageal junction, biopsy: ??Squamous mucosa with areas of surface epithelial sloughing. ??No si gnificant inflammatory infiltrate. ??Small portions of columnar epithelium without diagnostic abnormality. ??No specialized Charles's mucosa. B) ??Esophagus, biopsy: ??Strips of daniela gn squamous mucosa with surface epithelial sloughing with no sig nificant inflammation. ??No specialized Charles's mucosa. See comment. Participated in interpretation: ??MENDEZ Penaloza [id number]. HXSurg IV [facility] See Comment POWERCHAR T Comment: The above findings are not specific but may be seen in the setting of medication-induced injury, other form s of chemical injury, and in esophagitis dissecans superficialis. ??C orrelation with clinical and endoscopic findings is required. [facility] See Comment POWER CHART Comment: RESULT: 12/02/2013 15:26 Interpreted by: Major Pederson M.D. Report electronically signed by Major Pederson M.D. Transcribed by: [email or web address] 12/02/2013 10:14:45 Test Performed by: [place] [address] Powerhouse Operator: Scot ybarra III, M.D. Specimen (Source) Anatomical Collection Method Collection Time Re ceived Time Location / / Volume Laterality Tissue 11/30/2013 9:05 AM CDT Gerhard Roman M.D. LAB SURG PATH ORDERABLES Performing Organization Address City/State/ZIP Code Phon e Number POWERCHART documented in this encounter Visit Diagnoses Not on filedocumented in this encounter
--- OUTSIDE RECORDS SUMMARY | 2022-05-23 11:32 | XMS_ITS | Encounter Summary ---
:1935 Author Organization [facility] Address [address] [place] [address] Care Team Providers Name Role Phone Unavailable Primary Care Provider Unavailable Encounter Details Date Type Department Care Team Description 12/09/2013 [facility] [place] Varma, CYRIL, C.N.P., D. N.P. [address] [place] [address] (Wo rk) Social History Tobacco [...] CYRIL, C.N.P. - 12/09/2013 9:18 AM CDT [id number] CHIEF COMPLAINT/REASON FOR VISIT Results of EGD. [...] RN, CNP On: 12/19/2013 10:01 AM Source: [facility] MHSDOLBEYNONRADSYS Document Id: [id number] documented in this encounter Miscellaneous Notes Miscellaneous [...] (with food) Addendum by ALBANIA VARMA RN, PROOF TECHNICIAN HELPER on 19 December 2013 14:41:06 CDT Submitted: Modify:gabapentin (gabapentin 300 mg oral capsule) 3 cap(s) PO 2xDay Qty: 270 cap(s) Refills: 3 Substitutions Allowed Route To Pharmacy - [facility] Signed by ALBANIA VARMA RN, IVANA 12/19/2013 14:40:36 Addendum by ALBANIA VARMA RN, PROOF TECHNICIAN HELPER on 19 December 2013 14:40:09 CDT Submitted: Order:meclizine (meclizine 12.5 mg oral tablet) 1-2 tab(s) PO 3xDay Qty: 60 tab(s) Refills: 1 Substitutions Allowed PRN Dizziness Route To Pharmacy - [facility] Signed by ALBANIA VARMA RN, PROOF TECHNICIAN HELPER Addendum by TOMAS LOUIS LPN on 19 December 2013 12:28:44 CDT From: TOMAS LOUIS LPN To: ALBANIA VARMA RN, PROOF TECHNICIAN HELPER; Sent: 12/19/2013 12:28:44 CDT Subject: FW: General [...] any pain walking. Please advise.Patient contact # [phone] Addendum by SUJATHA BATISTA LPN on 14 December 2013 10:22:07 CDT Message left on patients private voicemail From: ALBANIA VARMA RN, PROOF TECHNICIAN HELPER To: SUJATHA BATISTA LPN; Sent: 12/14/2013 10:15:27 CDT Subject: General Message please let briana know I didn't find anything to put my finger on but want to see her in [place]U in 2-3 months. thanks. Source: [facility] [employer] Document Id: [id number] Electronically signed by Conversion, [facility] Director [employer] Communications [id number] at 02/10/2017 12:36 PM CDT Miscellaneous - Sujatha Batista L.PDannN. - 12/09/2013 2:07 PM CDT General Message Document Contains Addenda Addendum by ALBANIA VARMA RN, PROOF TECHNICIAN HELPER on 14 December 2013 09:35:11 CDT From: ALBANIA VARMA RN, PROOF TECHNICIAN HELPER To: SUJATHA BATISTA LPN; Sent: 12/14/2013 09:35:11 CDT Subject: RE: General Message thank you From: SUJATHA BATISTA LPN To: ALBANIA VARMA RN, PROOF TECHNICIAN HELPER; Sent: 12/09/2013 14:07:43 CDT Subject: General Message Patient called and wanted me to pass along to you she was able to get a hold of her eye doctor and she has open angle glaucoma any other questions she can be reached at home [phone] Thanks Sujatha Source: [facility] [employer] Document Id: [id number] Electronically signed by Conversion, [facility] Director [employer] Communications [id number] at 02/10/2017 12:36 PM CDT Miscellaneous - [place] Varma APRN, C.N.P. - 12/09/2013 10:28 AM CDT Ambulatory Patient Summary [address] [place], [place] [phone] Visit Information Name: BRIANA LEON [facility] Number: [id number] Current Date: 12/09/2013 10:28:56 Physicians Attending Provider: ALBANIA VARMA RN, PROOF TECHNICIAN HELPER Primary Care Provider: ALBANIA VARMA RN, PROOF TECHNICIAN HELPER BRIANA LEON has been given the following [...] 1 Tablet(s), Oral, two times a day [employer] [phone] fluticasone nasal (Flonase 0.05 mg/inh nasal spray) 2 [place](s), Nostrils(Both), once a day gabapentin (gabapentin 300 [...] appointment detail needed. Your Goals/Additional instructions: Source: [facility] POWERCHART Document Id: [id number] Miscellaneous - [place] Varma APRN, C.N.P. - 12/09/2013 10:28 AM CDT Ambulatory Discharge Medication List [address] [place], [place] [phone] Visit Information Name: BRIANA LEON [facility] Number: [id number] Visit Date: 12/09/2013 10:28:53 Attending Provider: ALBANIA VARMA RN, PROOF TECHNICIAN HELPER Primary Care Provider: ALBANIA VARMA RN, PROOF TECHNICIAN HELPER BRIANA LEON has been given the following [...] 1 Tablet(s), Oral, two times a day [employer] [phone] fluticasone nasal (Flonase 0.05 mg/inh nasal spray) 2 [place](s), Nostrils(Both), once a day gabapentin (gabapentin 300 [...] in case of emergency. Additional Information: Source: [facility] POWERCHART Document Id: [id number] Miscellaneous - Sujatha Batista L.P.N. - 12/09/2013 9:31 AM CDT Adult Baseball Club Manager Intake/History Adult Baseball Club Manager Intake/History Entered On: 12/09/2013 9:36 CDT Performed [...] Preferred Communication Mode : Verbal Languages : Croatian SUJATHA BATISTA LPN - 12/09/2013 9:31 CDT [...] BATISTA LPN - 12/09/2013 9:31 CDT Source: TM Document Id: [id number] CDT!42 documented in this encounter Plan of Treatment Not on filedocumented as of this encounter Visit Diagnoses Not on filedocumented in this encounter
--- OUTSIDE RECORDS SUMMARY | 2022-05-23 11:32 | XMS_ITS | Encounter Summary ---
:1935 Author Organization [facility] Address [address] [place] [address] Care Team Providers Name Role Phone Unavailable Primary Care Provider Unavailable Encounter Details Date Type Department Care Team Description 11/02/2013 Hospital Encounter HX [facility] ME [place] Varma, CYRIL, C.N.P., D. N.P. [address] [place] [address] (Wo rk) Social History Tobacco Use Types Packs/Day Years Used Date Smoking Tobacco: Never Assessed Sex Assigned at Date Recorded Not on file documented as of this encounter Last Filed Vital Signs Vital Sign Reading Time Taken Comments Blood Pressure 122/74 11/02/2013 2:50 PM MANAGER ONLINE Pulse - - Temperature - - Respiratory Rate - - Oxygen Saturation - - Inhaled Oxygen Concentration - - Weight 73.4 kg (161 lb 13.1 oz) 11/02/2013 2:50 PM MANAGER ONLINE Height 158.8 cm (5' 2.52) 11/02/2013 2:50 PM MANAGER ONLINE Body Mass Index 29.11 11/02/2013 2:50 PM MANAGER ONLINE documented in this encounter Medications at Time [...] David Landa - 11/02/2013 12:44 PM CST [id number] CHIEF COMPLAINT/REASON FOR VISIT Briana is a [...] to 48. The oldest son is a biomedical engineer. The other 2 sons have taken [...] a bathtub in a hotel room in [place]. She had contusions to the left hip [...] LIST OF SUPPLIERS: [place] Varma of the [facility] in [place] is her primary care provider. Dr. Sravan Tay in [place] her primary dentist. Dr. Con Ayers at [facility] for her eye care. [facility] for her prescription refills and the [facility] in [facility]. EDUCATION/COUNSELING/RECOMMENDATIONS: Briana was given a handout from the senior linkage line with information on resources available to herin the [place] and local areas. She was also provided with the Power of Prevention educational booklet from [facility]. Page 40 of the booklet was completed [...] 11:16 AM Co-Signed By: ALBANIA VARMA RN, ELECTRONIC WARFARE TECHNICIAN On: 11/08/2013 05:17 PM Source: [facility] MHSDOLBEYNONRADSYS Document Id: [id number] GER ONLINE documented in this encounter Procedure Notes Briana Hines R.N. - 11/02/2013 2:54 PM CST Vision Testing Vision Testing Entered On: 11/02/2013 14:55 MANAGER ONLINE Performed On: 11/02/2013 14:54 MANAGER ONLINE by BRIANA HINES RN Vision Testing Corrective Lenses : None Eye, Right with Correction : 20/200 Eye, Left w/Correction : 20/25 Eyes, Both w/o Correction : 20/40 BRIANA HINES RN - 11/02/2013 14:54 MANAGER ONLINE Source: [facility] POWERCHART Document Id: [id number] MANAGER ONLINE!6 GER ONLINE documented in this encounter Miscellaneous Notes Miscellaneous - Briana Hines R.N. - 11/02/2013 2:53 PM MANAGER ONLINE PHQ-9 PHQ-9 Entered On: 11/02/2013 14:53 MANAGER ONLINE Performed On: 11/02/2013 14:53 MANAGER ONLINE by BRIANA HINES RN PHQ-9 Little interest [...] all BRIANA HINES RN - 11/02/2013 14:53 MANAGER ONLINE Source: [facility] OMEGA MORGANCHART Document Id: [id number] MANAGER ONLINE!13 GER ONLINE Miscellaneous - Briana Hines R.N. - 11/02/2013 2:53 PM MANAGER ONLINE Obstructive Sleep Apnea Obstructive Sleep Apnea Entered On: 11/02/2013 14:54 MANAGER ONLINE Performed On: 11/02/2013 14:53 MANAGER ONLINE by BRIANA HINES RN KATHERINE Screening Known Obstructive Sleep Apnea : No - NOT diagnosed with KATHERINE BRIANA HINES RN - 11/02/2013 14:53 MANAGER ONLINE KATHERINE Assessment Do you have high blood [...] 1 BRIANA HINES RN - 11/02/2013 14:53 MANAGER ONLINE Source: [facility] POWERCHART Document Id: [id number] MANAGER ONLINE!10 GER ONLINE Miscellaneous - Briana Hines R.N. - 11/02/2013 2:52 PM MANAGER ONLINE Health Assessment Health Assessment Entered On: 11/02/2013 14:53 MANAGER ONLINE Performed On: 11/02/2013 14:52 MANAGER ONLINE by BRIANA HINES RN Health Assessment Complete Health Assessment Complete or Modified : Annual Health Assessment Annual Health Assessment Completed : Yes BRIANA HINES RN - 11/02/2013 14:52 MANAGER ONLINE Nutrition Nutrition Risk Factors by History Adult : None Home Diet : Other: celiac Disease BRIANA HINES RN - 11/02/2013 14:52 MANAGER ONLINE Functional Current Daily Living Assistance : None BRIANA HINES RN - 11/02/2013 14:52 MANAGER ONLINE Dependent Habits Tobacco Use/Currently Using : No Exposure to Tobacco Smoke : Care provider denies smoking in home Smoking Status : Never smoker BRIANA HINES RN - 11/02/2013 14:52 MANAGER ONLINE Tobacco Use Grid Last Use : never BRIANA HINES RN - 11/02/2013 14:52 MANAGER ONLINE Alcohol Use : Yes BRIANA HINES RN - 11/02/2013 14:52 MANAGER ONLINE Caffeine Use Grid Caffeine Use : Current Type : Coffee Frequency : Weekly BRIANA HINES RN - 11/02/2013 14:52 MANAGER ONLINE Recreational Drug Use Grid Drug Use : None BRIANA HINES RN - 11/02/2013 14:52 MANAGER ONLINE AUDIT Tool How Often Do You Have A Drink : Monthly or less How Many Drinks in a Day When Drinking : 1 or 2 Six or More Drinks On One Occassion : Never Audit Phase 1 Score : 1 BRIANA HINES RN - 11/02/2013 14:52 MANAGER ONLINE Psychosocial Domestic Abuse Concerns : None BRIANA HINES RN - 11/02/2013 14:52 MANAGER ONLINE Advance Directive Advanced Directives : No Advance Directive Additional Information : Yes BRIANA HINES RN - 11/02/2013 14:52 MANAGER ONLINE Educ Needs Learning Style Preference Adult Grid Patient : Printed materials, Verbal explanation Family : None BRIANA HINES RN - 11/02/2013 14:52 MANAGER ONLINE Source: [facility] POWERCHART Document Id: [id number] MANAGER ONLINE!39 GER ONLINE Miscellaneous - Briana Hines R.N. - 11/02/2013 2:50 PM MANAGER ONLINE Adult Print Finishing Worker Intake/History Adult Print Finishing Worker Intake/History Entered On: 11/02/2013 14:51 MANAGER ONLINE Performed On: 11/02/2013 14:50 MANAGER ONLINE by BRIANA HINES collection systems modeler Chief Complaint : Medicare Initial Annual Wellness [...] kg/m2 BRIANA HINES RN - 11/02/2013 14:50 MANAGER ONLINE General Info Information Given By : Patient Languages : Egyptian BRIANA HINES RN - 11/02/2013 14:50 MANAGER ONLINE Subjective Pain Symptoms : No BRIANA HINES RN - 11/02/2013 14:50 MANAGER ONLINE Dependent Habits Tobacco Use/Currently Using : No Exposure to Tobacco Smoke : Care provider denies smoking in home Smoking Status : Never smoker BRIANA HINES RN - 11/02/2013 14:50 MANAGER ONLINE Tobacco Use Grid Last Use : never BRIANA HINES RN - 11/02/2013 14:50 MANAGER ONLINE Alcohol Use : Yes BRIANA HINES RN - 11/02/2013 14:50 MANAGER ONLINE Caffeine Use Grid Caffeine Use : Current Type : Coffee Frequency : Weekly BRIANA HINES RN - 11/02/2013 14:50 MANAGER ONLINE Recreational Drug Use Grid Drug Use : None BRIANA HINES RN - 11/02/2013 14:50 MANAGER ONLINE Source: [facility] [employer] Document Id: [id number] MANAGER ONLINE!34 GER ONLINE documented in this encounter Plan of Treatment Not on filedocumented as of this encounter Visit Diagnoses Not on filedocumented in this encounter
--- OUTSIDE RECORDS SUMMARY | 2022-05-23 11:32 | XMS_ITS | Encounter Summary ---
:1935 Author Organization [facility] Address [address] [place] [address] Care Team Providers Name Role Phone Unavailable Primary Care Provider Unavailable Encounter Details Date Type Department Care Team Description 03/01/2014 Hospital Encounter HX [facility] [place] Varma, SATINDER RN, C.N.P., D.N.P. [address] [phone] (Wo rk) Social History Tobacco Use [...] Letter 01 March 2014 BRIANA LEON [address] [facility] [address] [place] [id number] Dear BRIANA LEON, I am pleased to report that your results from the following hemoglobin test is normal. If you have questions or concerns, please do not hesitate to call our office. Result Name Current Result Previous Result Normal Range Hgb (g/dL) 13.2 03/01/2014 12.3 09/05/2013 12.0 - 15.5 Sincerely, ALBANIA VARMA [address] [facility] [place] [address] Electronic Signature Electronically Signed By: ALBANIA VARMA RN, GARMENT SEWING MACHINE OPERATOR On: 01 March 2014 This document has images extracted. Source: [facility] OmahaCHART Document Id: [id number] Electronically signed by Conversion, [facility] Sewer Contractor [id number] at 02/10/2017 5:14 AM CDT documented in [...]
--- OUTSIDE RECORDS SUMMARY | 2022-05-23 11:32 | XMS_ITS | Encounter Summary ---
:1935 Author Organization [facility] Address [address] [place] [address] Care Team Providers Name Role Phone Unavailable Primary Care Provider Unavailable Encounter Details Date Type Department Care Team Description 10/02/2014 Hospital Encounter HX [facility] ME Mary Varma, CYRIL, C.N.P., D. N.P. [address] [place] [address] (Wo rk) Social History Tobacco Use Types Packs/Day Years Used Date Smoking Tobacco: Never Assessed Sex Assigned at Date Recorded Not on file documented as of this encounter Last Filed Vital Signs Vital Sign Reading Time Taken Comments Blood Pressure 120/70 10/02/2014 12:20 PM OPHTHALMOLOGY ASSISTANT Pulse 80 10/02/2014 12:20 PM OPHTHALMOLOGY ASSISTANT Temperature - - Respiratory Rate 16 10/02/2014 12:20 PM OPHTHALMOLOGY ASSISTANT Oxygen Saturation - - Inhaled Oxygen Concentration - - Weight 75.7 kg (166 lb 14.2 oz) 10/02/2014 12:20 PM OPHTHALMOLOGY ASSISTANT Height - - Body Mass Index 30.02 [...] APRN, EsperanzaNDannP. - 10/02/2014 12:16 PM CST [id number] CHIEF COMPLAINT/REASON FOR VISIT Vertigo. HISTORY OF [...] MarshallN.P./farhat Electronically Signed By: MARY VARMA RN, EXTENSION SERVICE SPECIALIST On: 10/07/2014 09:15 AM Source: [facility] MHSDOLBEYNONRADSYS Document Id: [id number] HALMOLOGY ASSISTANT documented in this encounter Nursing Notes Sujatha Batista L.P.N. - 10/02/2014 12:28 PM CST Orthostatics Orthostatics Entered On: 10/02/2014 12:32 OPHTHALMOLOGY ASSISTANT Performed On: 10/02/2014 12:28 OPHTHALMOLOGY ASSISTANT by SUJATHA BATISTA LPN Orthostatics Systolic Blood [...] Regular SUJATHA BATISTA LPN - 10/02/2014 12:28 OPHTHALMOLOGY ASSISTANT [facility] Document Id: [id number] OPHTHALMOLOGY ASSISTANT!16 HALMOLOGY ASSISTANT documented in this encounter Miscellaneous Notes Miscellaneous - Mary Varma APRN, C.NDannP. - 10/05/2014 3:14 PM CST Results Notification From: MARY VARMA RN, EXTENSION SERVICE SPECIALIST Sent: 10/05/2014 15:14:54 OPHTHALMOLOGY ASSISTANT Show up: 10/05/2014 15:14:00 OPHTHALMOLOGY ASSISTANT Subject: Results Notification Pt called with results. [...] Platelet 199 x10(9)/L (150 - 450) Source: [facility] POWERCHART Document Id: [id number] Electronically signed by Dustin, [facility] Tray Filler [id number] at 02/08/2017 2:52 PM CDT Miscellaneous - Mary Varma, LIMEHOUSE WORKER, C.N.P. - 10/02/2014 12:57 PM CST Ambulatory Patient Summary [address] [place] [phone] Visit Information Name: KATHRYN LEON [facility] Number: [id number] Current Date: 10/02/2014 12:57:37 Physicians Attending Provider: MARY VARMA RN, EXTENSION SERVICE SPECIALIST Primary Care Provider: MARY VARMA RN, EXTENSION SERVICE SPECIALIST CAROLYN KATHRYN BANDA has been given the [...] Vaginal, 2 times a week Member No [id number] ferrous sulfate (ferrous sulfate 325 mg (65 mg elemental iron) oral tablet) 1 Tablet(s), Oral, once a day fexofenadine-pseudoephedrine (Rochelle-D 12 Hour 60 mg-120 mg oral tablet, extended release) 1 Tablet(s), Oral, two times a day [facility] [phone] fluticasone nasal (Flonase 0.05 mg/inh nasal spray) 2 Cebolla(s), Nostrils(Both), once a day gabapentin (gabapentin 300 [...] emergency. Electronically Signed By: MARY VARMA RN, EXTENSION SERVICE SPECIALIST Signed On:02-OCT-2014 12:56:51 Your Allergies & Intolerances [...] appointment detail needed. Your Goals/Additional instructions: Source: [facility] POWERCHART Document Id: [id number] HALMOLOGY ASSISTANT Miscellaneous - Mary Varma APRN, C.N.P. - 10/02/2014 12:57 PM CST Ambulatory Discharge Medication List [address] [phone] Visit Information Name: KATHRYN LEON [facility] Number: [id number] Visit Date: 10/02/2014 12:57:35 Attending Provider: MARY VARMA RN, EXTENSION SERVICE SPECIALIST Primary Care Provider: MARY VARMA RN, EXTENSION SERVICE SPECIALIST KATHRYN LEON has been given the following [...] Vaginal, 2 times a week Member No [phone] ferrous sulfate (ferrous sulfate 325 mg (65 mg elemental iron) oral tablet) 1 Tablet(s), Oral, once a day fexofenadine-pseudoephedrine (Rochelel-D 12 Hour 60 mg-120 mg oral tablet, extended release) 1 Tablet(s), Oral, two times a day [facility] [place] [phone] fluticasone nasal (Flonase 0.05 mg/inh nasal spray) 2 Cebolla(s), Nostrils(Both), once a day gabapentin (gabapentin 300 [...] emergency. Electronically Signed By: MARY VARMA RN, EXTENSION SERVICE SPECIALIST Signed On:02-OCT-2014 12:56:51 Additional Information: Source: [facility] POWERCHART Document Id: [id number] HALMOLOGY ASSISTANT Miscellaneous - Sujatha Batista L.P.NDann - 10/02/2014 12:27 PM CST Health Assessment Health Assessment Entered On: 10/02/2014 12:28 OPHTHALMOLOGY ASSISTANT Performed On: 10/02/2014 12:27 OPHTHALMOLOGY ASSISTANT by SUJATHA BATISTA LPN Health Assessment Complete Health Assessment Complete or Modified : Annual Health Assessment Annual Health Assessment Completed : Yes SUJATHA BATISTA LPN - 10/02/2014 12:27 OPHTHALMOLOGY ASSISTANT Nutrition Nutrition Risk Factors by History Adult : None SUJATHA BATISTA LPN - 10/02/2014 12:27 OPHTHALMOLOGY ASSISTANT Functional Current Daily Living Assistance : None SUJATHA BATISTA LPN - 10/02/2014 12:27 OPHTHALMOLOGY ASSISTANT Dependent Habits Tobacco Use/Currently Using : No Exposure to Tobacco Smoke : Care provider denies smoking in home Smoking Status : Never smoker SUJATHA BATISTA LPN - 10/02/2014 12:27 OPHTHALMOLOGY ASSISTANT Tobacco Use Grid Last Use : never SUJATHA BATISTA LPN - 10/02/2014 12:27 OPHTHALMOLOGY ASSISTANT Caffeine Use Grid Caffeine Use : Current Type : Coffee Frequency : Weekly SUJATHA BATISTA LPN - 10/02/2014 12:27 OPHTHALMOLOGY ASSISTANT Recreational Drug Use Grid Drug Use : None SUJATHA BATISTA LPN - 10/02/2014 12:27 OPHTHALMOLOGY ASSISTANT Psychosocial Domestic Abuse Concerns : None Adventist Preference : Unknown SUJATHA BATISTA LPN - 10/02/2014 12:27 OPHTHALMOLOGY ASSISTANT Advance Directive Advanced Directives : No Advance Directive Additional Information : Yes SUJATHA BATISTA LPN - 10/02/2014 12:27 OPHTHALMOLOGY ASSISTANT Educ Needs Learning Style Preference Adult Grid Patient : Printed materials Family : None SUJATHA BATISTA LPN - 10/02/2014 12:27 OPHTHALMOLOGY ASSISTANT Source: [facility] POWERCHART Document Id: [id number] OPHTHALMOLOGY ASSISTANT!33 HALMOLOGY ASSISTANT Miscellaneous - Sujatha Batista L.PDannNDann - 10/02/2014 12:20 PM CST Adult Business Support Specialist Intake/History Adult Business Support Specialist Intake/History Entered On: 10/02/2014 12:24 OPHTHALMOLOGY ASSISTANT Performed On: 10/02/2014 12:20 OPHTHALMOLOGY ASSISTANT by SUJATHA BATISTA LPN Intake Chief Complaint [...] kg SUJATHA BATISTA LPN - 10/02/2014 12:20 OPHTHALMOLOGY ASSISTANT General Info Information Given By : Patient Preferred Communication Mode : Verbal Languages : Burmese Is Patient Female and 13-50 no hysterectomy : No SUJATHA BATISTA LPN - 10/02/2014 12:20 OPHTHALMOLOGY ASSISTANT Subjective Pain Symptoms : No SUJATHA BATISTA LPN - 10/02/2014 12:20 OPHTHALMOLOGY ASSISTANT Dependent Habits Tobacco Use/Currently Using : No Exposure to Tobacco Smoke : Care provider denies smoking in home Smoking Status : Never smoker SUJATHA BATISTA LPN - 10/02/2014 12:20 OPHTHALMOLOGY ASSISTANT Tobacco Use Grid Last Use : never SUJATHA BATISTA LPN - 10/02/2014 12:20 OPHTHALMOLOGY ASSISTANT Caffeine Use Grid Caffeine Use : Current Type : Coffee Frequency : Weekly SUJATHA BATISTA BOOT TRIMMER - 10/02/2014 12:20 OPHTHALMOLOGY ASSISTANT Recreational Drug Use Grid Drug Use : None SUJATHA BATISTA BOOT TRIMMER - 10/02/2014 12:20 OPHTHALMOLOGY ASSISTANT ID Screen Drug Resistant Organism : No Travel Within Last 21 Days : No SUJATHA BATISTA LPN - 10/02/2014 12:20 OPHTHALMOLOGY ASSISTANT Source: [facility] POWERCHART Document Id: [id number] OPHTHALMOLOGY ASSISTANT!40 HALMOLOGY ASSISTANT documented in this encounter Plan of Treatment Not on filedocumented as of this encounter Procedures Procedure Name Priority Date/Time Associated Comments Diagnosis CBC WITHOUT Routine 10/02/2014 1:08 Results for this DIFFERENTIAL, B PM OPHTHALMOLOGY ASSISTANT procedure ar e in the results section. ALANINE AMINOTRANSFERASE Routine 10/02/2014 1:08 Results for this (ALT), S/P PM OPHTHALMOLOGY ASSISTANT procedure are i n the results section. ASPARTATE Routine 10/02/2014 1:08 Results for this AMINOTRANSFERASE (AST), PM OPHTHALMOLOGY ASSISTANT proc edure are in S/P the results section. THYROID-STIMULATING Routine 10/02/2014 1:08 Resul ts for this HORMONE-SENSITIVE PM OPHTHALMOLOGY ASSISTANT procedure are in (S-TSH) the results section. BASIC METABOLIC PANEL, Routine 10/02/2014 1:08 Re sults for this S/P PM OPHTHALMOLOGY ASSISTANT procedure are i n the results section. documented in this encounter Results CBC without Differential (10/02/2014 1:08 PM OPHTHALMOLOGY ASSISTANT) P athologist Signature Leukocytes 4.8 3.4 - 10.5 POWERCHART X109L Erythrocytes 4.45 3.90 - 5.03 POWERCHART J1297R Hemoglobin 13.4 12.0 - 15.5 POWERCHART GDL Hematocrit 40.4 34.9 - 44.5 POWERCHART MCV 90.8 82.0 - 98.0 POWERCHART FL HX RDW 12.5 11.9 - 15.5 POWERCHART Platelet Count 199 150 - 450 POWERCHART X109L Specimen (Source) Anatomical Collection Method Collection Time Re ceived Time Location / / Volume Laterality Blood 10/02/2014 1:08 PM OPHTHALMOLOGY ASSISTANT Esperanza Schmidt APRNN.P., D.N.P. LAB BLOOD ADD-ON Performing Organization Address City/State/ZIP Code Phon e Number POWERCHART Thyroid-Stimulating Hormone-Sensitive (s-TSH) (10/02/2014 1:08 PM OPHTHALMOLOGY ASSISTANT) P athologist Signature TSH 2.13 0.27 - 4.20 POWERCHART (Thyrotropin) MIUL Specimen (Source) Anatomical Collection Method Collection Time Re ceived Time Location / / Volume Laterality Blood 10/02/2014 1:08 PM OPHTHALMOLOGY ASSISTANT Angy Schmidt APRN.N.P., D.N.P. LAB BLOOD ADD-ON Performing Organization Address City/State/ZIP Code Phon e Number POWERCHART (ABNORMAL) BMP (Basic Metabolic Panel) (10/02/2014 1:08 PM OPHTHALMOLOGY ASSISTANT) Analysis Performed At Patho logist Time Signature [...] POWERCHART MMOLL HXeGFR (MDRD) >60 >=60 POWERCHART [id number] eGFR >60 >=60 POWERCHART Black/ [id number] [place] Specimen (Source) Anatomical Collection Method Collection Time Re ceived Time Location / / Volume Laterality Blood 10/02/2014 1:08 PM OPHTHALMOLOGY ASSISTANT Angy Schmidt APRN.N.P., D.N.P. LAB BLOOD ADD-ON Performing Organization Address City/State/ZIP Code Phon e Number POWERCHART (ABNORMAL) AST (Aspartate Aminotransferase) (10/02/2014 1:08 PM OPHTHALMOLOGY ASSISTANT) Patholo gist Method Time Signature Aspartate 52 (H) 8 - 43 POWERCHART Aminotransferase UNITL (AST), S Specimen (Source) Anatomical Collection Method Collection Time Re ceived Time Location / / Volume Laterality Blood 10/02/2014 1:08 PM OPHTHALMOLOGY ASSISTANT Mary Varma APRN C.N.P., D.N.P. LAB BLOOD ADD-ON Performing Organization Address City/State/ZIP Code Phon e Number POWERCHART (ABNORMAL) ALT (Alanine Aminotransferase) (10/02/2014 1:08 PM OPHTHALMOLOGY ASSISTANT) P athologist Signature Alanine 93 (H) 7 - 45 POWERCHART Amniotransferas UNITL e, LD Specimen (Source) Anatomical Collection Method Collection Time Re ceived Time Location / / Volume Laterality Blood 10/02/2014 1:08 PM OPHTHALMOLOGY ASSISTANT Mary Varma APRN, Agny.N.P., D.N.P. LAB BLOOD ADD-ON Performing Organization Address City/State/ZIP Code Phon e Number POWERCHART documented in this encounter Visit Diagnoses Not on filedocumented in this encounter
--- OUTSIDE RECORDS SUMMARY | 2022-05-23 11:32 | XMS_ITS | Encounter Summary ---
:1935 Author Organization [facility] Address [address] [place] [address] Care Team Providers Name Role Phone Unavailable Primary Care Provider Unavailable Encounter Details Date Type Department Care Team Description 10/02/2014 Hospital Encounter [facility] [place] Varma APRN, C.N.P., D. N.P. [address] [place] [address] (Wo rk) Social History Tobacco [...] Letter 03 October 2014 BRIANA HOWELLENTZ [address] [place] [id number] Dear BRIANA MATHEWZ, I am pleased to [...] >60 09/05/2013 >=60 - Sincerely, ALBANIA VARMA [address] [address] Electronic Signature Electronically Signed By: ALBANIA VARMA RN, FIBER HEEL PIECE SHAPER On: 03 October 2014 This document has images extracted. Source: [employer] Document Id: [id number] Electronically signed by Conversion, [facility] Pipe And Tank Fabricator [id number] at 02/08/2017 2:52 PM CDT Miscellaneous - Conversion, Historical Provider Ser - 10/02/2014 11:59 PM PRODUCT PROMOTER SALES PERSON Coding Summary-Paper Based CODING DATE: 10/05/2014 FINAL [place] [facility] STATUS: * Discharged to Home or [...] CONNORS Date Saved: 10/05/2014 01:49 pm Source: [employer] Document Id: [id number] documented in this encounter Plan of Treatment Not on filedocumented as of this encounter Visit Diagnoses Not on filedocumented in this encounter
--- OUTSIDE RECORDS SUMMARY | 2022-05-23 11:32 | XMS_ITS | Encounter Summary ---
:1935 Author Organization [facility] Address [address] [place] [address] Care Team Providers Name Role Phone Unavailable Primary Care Provider Unavailable Encounter Details Date Type Department Care Team Description 11/22/2013 - Hospital Encounter HX [facility] DiegoMary pineda, 03/05/2014 SRV CYRIL, C.N.P., D.N.P. [address] [place] [address] Social History Tobacco Use Types Packs/Day Years Used Date Smoking Tobacco: Never Assessed Sex Assigned at Date Recorded Not on file documented as of this encounter Discharge Summaries Tamar Aceves P.T. - 02/27/2014 12:00 AM CDT [id number] PT DISCHARGE SUMMARY REFERRAL SOURCE/ORDER Patient was [...] ACEVES DPT On: 03/15/2014 10:13 AM Source: [facility] MHSDOLBEYNONRADSYS Document Id: [id number] documented in this encounter Medications at Time [...] Villalobos P.Marleni - 11/23/2013 12:00 AM CDT [id number] CHIEF COMPLAINT/REASON FOR VISIT Residual dizziness. She is significantly better than she was yesterday. However, she is leaving critical access hospital. Therefore, we will reassess today. IMPRESSION/REPORT/PLAN Hallpike-Jimmy test was positive for a left posterior canal nystagmus, latency of 5 seconds duration of 5 seconds. We did perform DIRECTORY OPERATOR maneuvers for the left posterior canal, performed two times. First time patient was symptomatic, second time patient was asymptomatic. Patient tolerated it well. Total treatment time today was 20 minutes. Plan is to continue as needed for symptom resolution. Faviola Villalobos D.P.T./joby Electronically Signed By: FAVIOLA VILLALOBOS On: 11/28/2013 04:15 PM Source: [facility] MHSDOLBEYNONRADSYS Document Id: [id number] documented in this encounter Consult Notes aTmar Aceves P.T. - 11/22/2013 12:00 AM CDT [id number] FUNCTIONAL SCORING Current functional category: Changing and [...] just felt a little foggy, shehad taken [id number] meclizine or Dramamine, this helped a little [...] GARCIA MD On: 11/24/2013 09:45 PM Source: [facility] MHSDOLBEYNONRADSYS Document Id: [id number] documented in this encounter Plan of Treatment Not on filedocumented as of this encounter Visit Diagnoses Not on filedocumented in this encounter
--- OUTSIDE RECORDS SUMMARY | 2022-05-23 11:32 | XMS_ITS | Encounter Summary ---
:1935 Author Organization [facility] Address [address] [place] [address] Care Team Providers Name Role Phone Unavailable Primary Care Provider Unavailable Encounter Details Date Type Department Care Team Description 11/16/2013 Hospital Encounter HX NO MAPPING Uziel Roman M.D. [address] [place], [place] [address] (Wo rk) Social History Tobacco Use Types Packs/Day Years Used Date Smoking Tobacco: Never Assessed Sex Assigned at Date Recorded Not on file documented as of this encounter Last Filed Vital Signs Vital Sign Reading Time Taken Comments Blood Pressure 126/74 11/16/2013 10:07 AM [employer] Pulse 74 11/16/2013 10:07 AM [employer] Temperature - - Respiratory Rate 16 11/16/2013 10:07 AM [employer] Oxygen Saturation - - Inhaled Oxygen Concentration - - Weight 73.4 kg (161 lb 13.1 oz) 11/16/2013 10:07 AM [employer] Height - - Body Mass Index 29.11 11/02/2013 2:50 PM [employer] documented in this encounter Medications at Time [...] Roman M.D. - 11/16/2013 10:01 AM CST [id number] CHIEF COMPLAINT/REASON FOR VISIT Epigastric pain and [...] exam, so we did not bring a arc and gas welder in. Chest wall, she is mildly tender [...] did offer to refer her back to [facility]. She has had previous scope there 7 years ago but she preferred to have it done l ocally if possible. Uziel Roman M.D./kelly cc: Aakash Quiroga Electronically Signed By: UZIEL ROMAN MD On: 11/16/2013 02:32 PM Source: [facility] MHSDOLBEYNONRADSYS Document Id: [id number] AIRSPACE OFFICER documented in this encounter Miscellaneous Notes Miscellaneous - Uziel Roman M.D. - 11/16/2013 10:47 AM CST Ambulatory Patient Summary [facility] [address] [place], [place] [phone] Visit Information Name: BRIANA LEON [facility] Number: [id number] Current Date: 11/16/2013 10:47:36 Physicians Attending Provider: UZIEL ROMAN MD Primary Care Provider: ALBANIA VARMA RN, SPAGHETTI PRESS HELPER BRIANA LEON has been given the [...] 1 Tablet(s), Oral, two times a day [employer] [phone] fluticasone nasal (Flonase 0.05 mg/inh nasal spray) 2 [place](s), Nostrils(Both), once a day gabapentin (gabapentin 300 [...] Date Time Location Reason Provider 11/30/2013 08:45 [facility] Scope Room hiatal herina, with biopsy and probable dilation, Per Dr. Roman [facility] Scope Rm 12/05/2013 10:00 [facility] Family Med motivation exercises [facility] Health Conical Mixer Attention: Contact your local Clinic if further appointment detail needed. Your Goals/Additional instructions: Source: [facility] POWERCHART Document Id: [id number] AIRSPACE OFFICER Miscellaneous - Uziel Roman M.D. - 11/16/2013 10:47 AM CST Ambulatory Discharge Medication List [address] [phone] Visit Information Name: BRIANA LEON [facility] Number: [id number] Visit Date: 11/16/2013 10:47:32 Attending Provider: UZIEL ROMAN MD Primary Care Provider: ALBANIA VARMA RN, SPAGHETTI PRESS HELPER BRIANA LEON has been given the [...] 1 Tablet(s), Oral, two times a day [employer] [phone] fluticasone nasal (Flonase 0.05 mg/inh nasal spray) 2 [place](s), Nostrils(Both), once a day gabapentin (gabapentin 300 [...] in case of emergency. Additional Information: Source: [facility] POWERCHART Document Id: [id number] AIRSPACE OFFICER Miscellaneous - Chantal Aceves R.N. - 11/16/2013 10:07 AM CST Adult Model Maker Intake/History Adult Model Maker Intake/History Entered On: 11/16/2013 10:11 [employer] Performed On: 11/16/2013 10:07 [employer] by CHANTAL ACEVES enrollment processor Chief Complaint : left upper abd pain, [...] kg CHANTAL ACEVES RN - 11/16/2013 10:07 [employer] General Info Information Given By : Patient Preferred Communication Mode : Verbal Languages : Bahraini CHANTAL ACEVES RN - 11/16/2013 10:07 [employer] Subjective Pain Symptoms : Yes CHANTAL ACEVES RN - 11/16/2013 10:07 [employer] Pain Pain Assessment Grid Pain 1 Location : Abdomen Laterality : Left CHANTAL ACEVES RN - 11/16/2013 10:07 [employer] Dependent Habits Tobacco Use/Currently Using : No Exposure to Tobacco Smoke : Care provider denies smoking in home Smoking Status : Never smoker CHANTAL ACEVES RN - 11/16/2013 10:07 [employer] Tobacco Use Grid Last Use : never CHANTAL ACEVES RN - 11/16/2013 10:07 [employer] Caffeine Use Grid Caffeine Use : Current Type : Coffee Frequency : Weekly CHANTAL ACEVES RN - 11/16/2013 10:07 [employer] Recreational Drug Use Grid Drug Use : None CHANTAL ACEVES RN - 11/16/2013 10:07 [employer] Source: [facility] POWERCHART Document Id: [id number] [employer] OFFICER!41 AIRSPACE OFFICER documented in this encounter Plan of Treatment Not on filedocumented as of this encounter Visit Diagnoses Not on filedocumented in this encounter
--- OUTSIDE RECORDS SUMMARY | 2022-05-23 11:32 | XMS_ITS | Encounter Summary ---
:1935 Author Organization [facility] Address [address] [place] [address] Care Team Providers Name Role Phone Unavailable Primary Care Provider Unavailable Encounter Details Date Type Department Care Team Description 10/06/2014 Hospital Encounter HX [facility] Albania Varma APRN, C.N.P., D. N.P. [address] [place] [address] (Wo rk) Social History Tobacco [...] APRN, C.N.P. - 10/06/2014 9:16 AM CST [id number] CHIEF COMPLAINT/REASON FOR VISIT Results from ultrasound. [...] lab tests. Her ultrasound did show the [place] hepatitis as well as cholelithiasis identified which was new since 2010. PAST MEDICAL/SURGICAL HISTORY Please see the EMR. PHYSICAL EXAMINATION In general, patient appears non-distressed. No additional physical examination performed. IMPRESSION/REPORT/PLAN Elevated liver enzymes, hepatitis panels and last laboratory studies are pending. Her ultrasound, I did reassure her just shows [place] hepatitis but also she has noted gallstones [...] QuirogaNOlivia/farhat Electronically Signed By: ALBANIA VARMA RN, HEAD OF HISTORY On: 10/21/2014 01:11 PM Source: [facility] MHSDOLBEYNONRADSYS Document Id: [id number] ITURE DELIVERY DRIVER documented in this encounter Miscellaneous Notes Miscellaneous - Albania Varma APRN, C.N.P. - 10/13/2014 4:47 PM CST Results Notification Document Contains Addenda Addendum by MADHAVI PERDOMO RN on 16 October 2014 15:57:07 FURNITURE DELIVERY DRIVER Pt was given message, she verbalizes understanding. She will call if gallbladder symptoms. She also reports no vertigo for one month. Addendum by SUJATHA MAR LPN on 16 October 2014 12:59:31 FURNITURE DELIVERY DRIVER Message left for patient to call back for results From: ALBANIA VARMA RN, HEAD OF HISTORY To: [place] [facility] Nurse Jori; MADHAVI PERDOMO RN; Sent: 10/13/2014 16:47:09 FURNITURE DELIVERY DRIVER Show up: 10/13/2014 16:42:00 FURNITURE DELIVERY DRIVER Subject: Results Notification please call Kathryn- Let [...] 10/06/2014 14:35 Radiology US Abdomen Complete Source: [employer] Document Id: [id number] Miscellaneous - Conversion, Historical Provider Ser - 10/06/2014 11:59 PM FURNITURE DELIVERY DRIVER Coding Summary-Paper Based CODING DATE: 10/11/[address] [facility] STATUS: * [...] CONNORS Date Saved: 10/11/2014 07:39 am Source: [employer] Document Id: [id number] documented in this encounter Plan of Treatment Not on filedocumented as of this encounter Visit Diagnoses Not on filedocumented in this encounter
--- OUTSIDE RECORDS SUMMARY | 2022-05-23 11:32 | XMS_ITS | Encounter Summary ---
:1935 Author Organization [facility] Address [address] [place] [address] Care Team Providers Name Role Phone Unavailable Primary Care Provider Unavailable Encounter Details Date Type Department Care Team Description 07/13/2014 - Hospital Encounter [facility] Albania Varma, 11/07/2014 SRV CYRIL, C.N.P., D.N.P. [address] [place] [phone] Social History Tobacco Use Types Packs/Day [...] BIANCA VILLALOBOS On: 10/04/2014 02:37 PM Source: [employer] Document Id: [id number] ANICAL SYSTEMS CONTROL ENGINEER Bianca Villalobos P.T. - 09/25/2014 1:09 PM [...] 01:15 PM Co-Signed By: ALBANIA VARMA RN, DATA POWER CONSULTANT On: 09/28/2014 02:29 PM Source: [employer] Document Id: [id number] Bianca Jackson P.T. - 07/31/2014 12:00 AM CST [id number] PHYSICAL THERAPY DAILY PROGRESS NOTE CHIEF COMPLAINT [...] symptoms in this position. We did perform ENGINEER TECHNICAL STAFF maneuvers for the right posterior canal x2. [...] 03:35 PM Co-Signed By: ALBANIA VARMA RN, [facility] On: 08/18/2014 03:35 PM Source: [facility] MHSDOLBEYNONRADSYS Document Id: [id number] ANICAL SYSTEMS CONTROL ENGINEER Bianca Villalobos P.T. - 07/21/2014 2:39 PM CST Patient is out of town on vacation. Patient's symptoms have resolved and she will call if symptoms should return. Plan for discharge. Electronically Signed By: BIANCA VILLALOBOS On: 07/21/2014 02:40 PM Source: [facility] POWERCHART Document Id: [id number] ANICAL SYSTEMS CONTROL ENGINEER Bianca Villalobos P.T. - 07/15/2014 3:00 PM CDT Patient feeling better today. She still feels lightheaded, but has not had episodes of dizziness. She is still very guarded with head movements, but feeling better. Patient will call if symptoms do not continue to resolve. Electronically Signed By: BIANCA VILLALOBOS On: 07/15/2014 03:01 PM Source: [facility] [employer] Document Id: [id number] Bianca Villalobos P.T. - 07/14/2014 12:00 AM CDT [id number] PHYSICAL THERAPY DAILY PROGRESS NOTE CHIEF COMPLAINT Patient reports that she feels better today; however is still having symptoms of vertigo. PHYSICAL EXAMINATION We did perform Hallpike-Jimmy testing. With this we did notice symptoms for the right horizontal canal. No significant nystagmus was appreciated; however, symptoms were reproduced. Patient tested negative for all anterior and posterior canals bilaterally. IMPRESSION/REPORT/PLAN We did perform ENGINEER TECHNICAL STAFF maneuvers for the right horizontal canal. This [...] BIANCA VILLALOBOS On: 08/01/2014 09:27 AM Source: [facility] MHSDOLBEYNONRADSYS Document Id: [id number] ANICAL SYSTEMS CONTROL ENGINEER documented in this encounter Consult Notes Bianca Villalobos P.T. - 09/22/2014 12:00 AM CST [id number] PHYSICAL THERAPY NOTE Patient returns to physical [...] symptoms within 3 weeks. PLAN OF CARE ENGINEER TECHNICAL STAFF maneuvers. Home program. We also discussed possible further evaluation, recommend patient follow-up with her primary physician due to multiple repeat encounters of positional vertigo. Bianca Villalobos D.P.T./farhat Electronically Signed By: BIANCA VILLALOBOS On: 10/11/2014 08:51 AM Modified by and Electronically Signed by: BIANCA VILLALOBOS On: 10/11/2014 08:51 AM Co-Signed By: ALBANIA VARMA RN, [facility] On: 10/21/2014 01:12 PM Source: [facility] MHSDOLBEYNONRADSYS Document Id: [id number] ANICAL SYSTEMS CONTROL ENGINEER Bianca Villalobos P.Radha. - 07/13/2014 12:00 AM CDT [id number] PHYSICAL THERAPY INITIAL EVALUATION Patient was evaluated [...] Vitamin B12. Vagifem. PHYSICAL EXAMINATION We completed Hallpike-[place] testing. Patient did test positive for the [...] symptoms within 2 weeks. PLAN OF CARE ENGINEER TECHNICAL STAFF maneuvers and possible home program. Patient has [...] D.P.T./farhat Electronically Signed By: BIANCA VILLALOBOS On: 07/27/2014 11:15 AM Co-Signed By: ALBANIA VARMA RN, DATA POWER CONSULTANT On: 07/31/2014 01:16 PM Source: [facility] MHSDOLBEYNONRADSYS Document Id: [id number] ANICAL SYSTEMS CONTROL ENGINEER documented in this encounter Plan of Treatment Not on filedocumented as of this encounter Visit Diagnoses Not on filedocumented in this encounter
--- OUTSIDE RECORDS SUMMARY | 2022-05-23 11:32 | XMS_ITS | Encounter Summary ---
:1935 Author Organization [facility] Address [address] [place] [address] Care Team Providers Name Role Phone Unavailable Primary Care Provider Unavailable Encounter Details Date Type Department Care Team Description 08/28/2014 Hospital Encounter [facility]X [facility] Mary Aquino, CYRIL, C.N.P., D.N.P. [address] [place] [phone] (Wo rk) Social History Tobacco [...]
--- OUTSIDE RECORDS SUMMARY | 2022-05-23 11:32 | XMS_ITS | Encounter Summary ---
:1935 Author Organization [facility] Address [address] [place] [address] Care Team Providers Name Role Phone Unavailable Primary Care Provider Unavailable Encounter Details Date Type Department Care Team Description 11/20/2014 Hospital Encounter HX [facility] Mary Varma, CYRIL, C.N.P., D. N.P. [address] [place] [phone] (Wo rk) Social History Tobacco [...] CYRIL, C.N.P. - 11/20/2014 9:23 AM CDT [id number] CHIEF COMPLAINT/REASON FOR VISIT Followup of elevated [...] Quiroga/farhat Electronically Signed By: MARY VARMA RN, EDUCATIONAL COORDINATOR On: 11/27/2014 04:40 PM Source: [facility] MHSDOLBEYNONRADSYS Document Id: [id number] documented in this encounter Miscellaneous Notes Miscellaneous - Madhavi Perdomo R.N. - 01/09/2015 1:41 PM CDT Vagifem Document Contains Addenda Addendum by MADHAVI PERDOMO RN on 10 January 2015 15:08:11 CDT noted Addendum by MARY VARMA RN, EDUCATIONAL COORDINATOR on 10 January 2015 15:02:38 CDT From: MARY VARMA RN, EDUCATIONAL COORDINATOR Sent: 01/10/2015 15:02:38 CDT Subject: RE:Vagifem Approved Order:estradiol topical (Vagifem 10 mcg vaginal tablet) 10 mcg Vaginal 2xWeek Member No [id number] Qty: 26 tab(s) Refills: 2 Substitutions Allowed Route To Pharmacy - [facility] Signed by MARY VARMA RN, IVANA 01/10/2015 15:02:33 From: MADHAVI PERDOMO RN To: MARY VARMA RN, EDUCATIONAL COORDINATOR; MADHAVI PERDOMO RN; Sent: 01/09/2015 13:41:20 CDT Subject: Vagifem On hold pending signature Order:estradiol topical (Vagifem 10 mcg vaginal tablet) 10 mcg Vaginal 2xWeek Member No [id number] Qty: 26 tab(s) Refills: 2 Substitutions Allowed Route To Pharmacy - [facility] Protocol? Source: [facility] POWERCHART Document Id: [id number] Miscellaneous - Mary Varma APRN, C.N.P. - 11/21/2014 5:06 PM CDT Normal Results Letter 21 November 2014 KATHRYN LEON [address] [place] [phone] Dear KATHRYN LEON, I am pleased to [...] 10/06/2014 6 - 29 Sincerely, MARY VARMA [address] [place] [address] [place] [address] Electronic Signature Electronically Signed By: MARY VARMA RN, EDUCATIONAL COORDINATOR On: 21 November 2014 This document has images extracted. Source: [facility] POWERCHART Document Id: [id number] Miscellaneous - Mary Varma APRN, C.N.P. - 11/20/2014 10:11 AM CDT Ambulatory Patient Summary [facility] [address] [place], [place] [address] [phone] Visit Information Name: KATHRYN LEON [facility] Number: [id number] Current Date: 11/20/2014 10:11:55 Physicians Attending Provider: MARY VARMA RN, EDUCATIONAL COORDINATOR Primary Care Provider: MARY VARMA RN, EDUCATIONAL COORDINATOR KATHRYN LEON has been given the following [...] Vaginal, 2 times a week Member No [id number] ferrous sulfate (ferrous sulfate 325 mg (65 mg elemental iron) oral tablet) 1 Tablet(s), Oral, once a day fexofenadine-pseudoephedrine (Rochelle-D 12 Hour 60 mg-120 mg oral tablet, extended release) 1 Tablet(s), Oral, two times a day [employer] [phone] fluticasone nasal (Flonase 0.05 mg/inh nasal spray) 2 [place](s), Nostrils(Both), once a day gabapentin (gabapentin 300 [...] emergency. Electronically Signed By: MARY VARMA RN, EDUCATIONAL COORDINATOR Signed On:20-NOV-2014 10:11:00 Your Allergies & Intolerances [...] appointment detail needed. Your Goals/Additional instructions: Source: [facility] POWERCHART Document Id: [id number] Miscellaneous - Mary Varma APRN, C.N.P. - 11/20/2014 10:11 AM CDT Ambulatory Discharge Medication List [address] [id number] Visit Information Name: KATHRYN LEON [facility] Number: [id number] Visit Date: 11/20/2014 10:11:53 Attending Provider: MARY VARMA RN, EDUCATIONAL COORDINATOR Primary Care Provider: MARY VARMA RN, EDUCATIONAL COORDINATOR KATHRYN LEON has been given the following [...] Vaginal, 2 times a week Member No [id number] ferrous sulfate (ferrous sulfate 325 mg (65 mg elemental iron) oral tablet) 1 Tablet(s), Oral, once a day fexofenadine-pseudoephedrine (Rochelle-D 12 Hour 60 mg-120 mg oral tablet, extended release) 1 Tablet(s), Oral, two times a day [employer] [phone] fluticasone nasal (Flonase 0.05 mg/inh nasal spray) 2 Bradley(s), Nostrils(Both), once a day gabapentin (gabapentin 300 [...] emergency. Electronically Signed By: MARY VARMA RN, EDUCATIONAL COORDINATOR Signed On:20-NOV-2014 10:11:00 Additional Information: Source: [facility] POWERCHART Document Id: [id number] Miscellaneous - Sujatha Batista L.P.N. - 11/20/2014 9:27 AM CDT Adult Veterinary Laboratory Technician Intake/History Adult Veterinary Laboratory Technician Intake/History Entered On: 11/20/2014 9:31 CDT Performed [...] Preferred Communication Mode : Verbal Languages : Wolof Is Patient Female and 13-50 no hysterectomy [...] Grid Last Use : never SUJATHA BATISTA [facility] - 11/20/2014 9:27 CDT Alcohol Use : Yes SUJATHA BATISTA [facility] - 11/20/2014 9:27 CDT Caffeine Use Grid Caffeine Use : Current Type : Coffee Frequency : Weekly SUJATHA BATISTA CONCRETE FINISHER - 11/20/2014 9:27 CDT Recreational Drug Use Grid Drug Use : None SUJATHA BATISTA [facility] - 11/20/2014 9:27 CDT ID Screen Drug Resistant Organism : No Travel Within Last 21 Days : No Contact with someone with Ebola : No SUJATHA BATISTA [facility] - 11/20/2014 9:27 CDT [facility] Document Id: [id number] CDT!47 documented in this encounter Plan of [...] pattern is associated with antibodies to ribonucleoprotein (PAPER PRODUCTS SUPERVISOR), Sm, SSA, SSB, o r Scl-70. ??This [...] and drug-induc ed lupus. Test Performed by: [facility] [place] [address] Chisel Mortiser Operator: Abelino Tejada Specimen Anatomical Collection Method Collection Time Receive d Time (Source) Location / / Volume Laterality Blood 11/20/2014 10:20 11/21/2014 8:58 AM CDT PM CDT Historical Provider LAB BLOOD ADD-ON Performing Organization Address [facility] Code Phon e Number POWERCHART [...] D.N.P. LAB BLOOD ADD-ON Performing Organization Address [facility] Code Phon e Number POWERCHART FRANSISCA (Antinuclear Antibodies), HEp-2 Substrate (11/20/2014 10:20 AM CDT) P athologist Signature HXANA Hep-2 Positive <1:40 POWERCHART [place] (Negative) Comment: Test Performed by: [facility] [address] [address] Chisel Mortiser Operator: Abelino Tejada Specimen (Source) Anatomical Collection Method [...] D.N.P. LAB BLOOD ADD-ON Performing Organization Address City/State/[facility] Phon e Number POWERCHART (ABNORMAL) ALT (Alanine Aminotransferase) (11/20/2014 10:20 AM CDT) P athologist Signature Alanine 82 (H) 7 - 45 POWERCHART Amniotransferas UNITL e, LD Specimen (Source) Anatomical Collection Method Collection Time Re ceived Time Location / / Volume Laterality Blood 11/20/2014 10:20 AM CDT Mary Varma APRN, C.N.P., D.N.P. LAB BLOOD ADD-ON Performing Organization Address City/State/[facility] Code Phon e Number POWERCHART documented in this encounter Visit Diagnoses Not on filedocumented in this encounter
--- OUTSIDE RECORDS SUMMARY | 2022-05-23 11:32 | XMS_ITS | Encounter Summary ---
:1935 Author Organization [facility] Address [address] [place] [address] Care Team Providers Name Role Phone Unavailable Primary Care Provider Unavailable Encounter Details Date Type Department Care Team Description 04/11/2015 Hospital Encounter HX [facility] Aries Camacho M.D. [address] [place], [place] [phone] (Wo rk) Social [...] LAURA RODGERS - 04/11/2015 9:17 CDT Source: [employer] Document Id: [id number] CDT!14 documented in this encounter Miscellaneous Notes Miscellaneous - Conversion, Historical Provider Ser - 04/11/2015 11:59 PM CDT Coding Summary-Paper Based CODING DATE: 04/16/2015 FINAL [facility] STATUS: * Discharged to Home or [...] RESENDIZ Date Saved: 04/16/2015 01:27 pm Source: [employer] Document Id: [id number] Miscellaneous - Aries Camacho M.D. - 04/11/2015 [...] 10:[address] Neck w/ contrast Source: [employer] Document Id: [id number] Miscellaneous - Laura Rodgers R.T.([place])([place]), Antonia(R) - [...] 8am. Thank you, Laura Rodgers, Radiology Phone: [phone] Source: [employer] Document Id: [id number] documented in this encounter Plan of Treatment Not on filedocumented as of this encounter Visit Diagnoses Not on filedocumented in this encounter
--- OUTSIDE RECORDS SUMMARY | 2022-05-23 11:32 | XMS_ITS | Encounter Summary ---
:1935 Author Organization [facility] Address [address] [place] [id number] Care Team Providers Name Role Phone Unavailable Primary Care Provider Unavailable Encounter Details Date Type Department Care Team Description 11/01/2013 Hospital Encounter HX [facility] Mary Aquino, CYRIL, C.N.P., D.N.P. [address] [place], [place] [phone] (Wo rk) Social History [...]
--- OUTSIDE RECORDS SUMMARY | 2022-05-23 11:32 | XMS_ITS | Encounter Summary ---
:1935 Author Organization [facility] Address [address] [place] [address] Care Team Providers Name Role Phone Unavailable Primary Care Provider Unavailable Encounter Details Date Type Department Care Team Description 03/15/2015 Hospital Encounter HX [facility] Jamie Camacho M.D. [address] [place], [place] [phone] (Wo rk) Social History [...] Camacho M.D. - 03/15/2015 10:11 AM CDT [id number] Ms. Leon is a pleasant 80-year-old woman. CHIEF COMPLAINT/REASON FOR VISIT Voice/hoarseness. REFERRAL SOURCE Consult at the request of Harman Aldrich CNP, [facility]. Antonia Aldrich CNP, letter March 06, 2015, reviewed and appreciated. This reflects the patient's history of almost 2-month history of what sounds like fairly sudden onset hoarseness. Patient estimates mild to moderate severity. People comment she does not sound the same. It seemed to start followinga sinus infection. She was on vacation at that time in [place] and was, so tired and felt crappy [...] cord mobility today. I recommended recheck in [place] with video endoscopy. We will repeat the exam. If there remains a question, or paralysis is identified, will proceed with CT scanning. She is comfortable with this plan. The importance of followup was emphasized. She voiced understanding and agreement. Jamie Camacho M.D./farhat cc: Antonia Aldrich APRN, IV[facility] [address] [place] [address] Electronically Signed By: JAMIE CAMACHO MD On: 04/03/2015 07:25 AM Source: [facility] MHSDOLBEYNONRADSYS Document Id: [id number] documented in this encounter Miscellaneous Notes Miscellaneous - Jamie Camacho M.D. - 03/15/2015 11:23 AM CDT Ambulatory Patient Summary [address] [place] [place] [phone] Visit Information Name: BRIANA LEON [facility] Number: [id number] Current Date: 03/15/2015 11:23:23 Physicians Attending Provider: JAMIE CAMACHO MD Primary Care Provider: ALBANIA VARMA RN, PROTECTIVE SIGNAL OPERATIONS SUPERVISOR BRIANA LEON has been given the [...] Vaginal, 2 times a week Member No [id number] ferrous sulfate (ferrous sulfate 325 mg (65 mg elemental iron) oral tablet) 1 Tablet(s), Oral, once a day fexofenadine-pseudoephedrine (Rochelle-D 12 Hour 60 mg-120 mg oral tablet, extended release) 1 Tablet(s), Oral, two times a day [employer] [phone] fluticasone nasal (Flonase 0.05 mg/inh nasal spray) 2 Crawford(s), Nostrils(Both), once a day gabapentin (gabapentin 300 [...] meals This is a CHANGE Routed to [address] [address] Stop Taking the Following Medications: [...] lifestyle changes, medication, and possibly surgery. ?? [id number] Jannet Varela, [address] [place] [address], [place] [address]. All rights reserved. This information is not [...] if you dont have one. Go to [email or web address] and click on Create Your Account. Then, follow the directions to complete the online form. Youll be asked for your [facility] number which you can find at the top of this document. Your Goals/Additional instructions: This document has images extracted. Please consider using [employer] for all your patient education needs. Source: [facility] POWERCHART Document Id: [id number] Miscellaneous - Jamie Camacho M.D. - 03/15/2015 11:23 AM CDT Ambulatory Discharge Medication List [address] [place], [place] [phone] Visit Information Name: BRIANA LEON [facility] Number: [id number] Visit Date: 03/15/2015 11:23:21 Attending Provider: JAMIE CAMACHO MD Primary Care Provider: ALBANIA VARMA RN, PROTECTIVE SIGNAL OPERATIONS SUPERVISOR BRIANA LEON has been given the [...] Vaginal, 2 times a week Member No [id number] ferrous sulfate (ferrous sulfate 325 mg (65 mg elemental iron) oral tablet) 1 Tablet(s), Oral, once a day fexofenadine-pseudoephedrine (Rochelle-D 12 Hour 60 mg-120 mg oral tablet, extended release) 1 Tablet(s), Oral, two times a day [employer] [phone] fluticasone nasal (Flonase 0.05 mg/inh nasal spray) 2 Crawford(s), Nostrils(Both), once a day gabapentin (gabapentin 300 [...] meals This is a CHANGE Routed to [address] [address] Stop Taking the Following Medications: [...] MD Signed On:15-MAR-2015 11:22:58 Additional Information: Source: [facility] Xiimo Document Id: [id number] Miscellaneous - Chitra Aceves RChelsey - 03/15/2015 10:43 AM CDT Adult Principal Systems Architect Intake/History Adult Principal Systems Architect Intake/History Entered On: 03/15/2015 10:45 CDT Performed On: 03/15/2015 10:43 CDT by CHITRA ACEVES airbrush artist photography Chief Complaint : hoarseness since January 16 [...] Preferred Communication Mode : Verbal Languages : Belgian Is Patient Female and 13-50 no hysterectomy [...] ACEVES RN - 03/15/2015 10:43 CDT Source: [facility] Xiimo Document Id: [id number] CDT!38 documented in this encounter Plan of Treatment Not on filedocumented as of this encounter Visit Diagnoses Not on filedocumented in this encounter
--- OUTSIDE RECORDS SUMMARY | 2022-05-23 11:32 | XMS_ITS | Encounter Summary ---
:1935 Author Organization [facility] Address [address] [place] [address] Care Team Providers Name Role Phone Unavailable Primary Care Provider Unavailable Encounter Details Date Type Department Care Team Description 02/28/2014 Hospital Encounter HX [facility] Mary Varma, CYRIL, C.N.P., D. N.P. [address] [place] [phone] (Wo rk) Social History Tobacco [...] APRN, C.N.P. - 02/28/2014 9:20 AM CDT [id number] CHIEF COMPLAINT/REASON FOR VISIT Preop physical. HISTORY OF PRESENT ILLNESS Kathryn is a 79-year-old female who comes in today per the request of Dr. Cadena from the [facility] for preanesthetic clearance for surgery to be performed on 03/28/2014 of a blepharectomy at [facility]. PAST MEDICAL/SURGICAL HISTORY Significant for: Arthritis. Celiac [...] 16, O2 SAT is 98%, and her KATHERIEN risk was 1 with her neck circumference [...] Don.N.P./farhat Electronically Signed By: MARY VARMA RN, PROMOTIONS FIRM ACCOUNTS MANAGER On: 02/28/2014 04:41 PM Source: [facility] MHSDOLBEYNONRADSYS Document Id: [id number] documented in this encounter Miscellaneous Notes Miscellaneous - Madhavi Perdomo R.N. - 03/03/2014 11:36 AM CDT Thrush script Document Contains Addenda Addendum by MADHAVI PERDOMO RN on 03 March 2014 14:10:09 CDT called to pt Addendum by MARY VARMA RN, PROMOTIONS FIRM ACCOUNTS MANAGER on 03 March 2014 13:26:02 CDT From: MARY VARMA RN, PROMOTIONS FIRM ACCOUNTS MANAGER Sent: 03/03/2014 13:26:02 CDT Subject: RE:Thrush script Approved Order:nystatin (nystatin 100,000 units/mL oral suspension) 5 mL PO 4xDay to replace any previous scripts Qty: 140 mL Duration: 7 day(s) Refills: 1 Substitutions Allowed Route To Pharmacy - [facility] Signed by MARY VARMA RN, PROMOTIONS FIRM ACCOUNTS MANAGER 03/03/2014 13:25:55 From: MADHAVI PERDOMO RN To: MARY VARMA RN, PROMOTIONS FIRM ACCOUNTS MANAGER; MADHAVI PERDOMO RN; Sent: 03/03/2014 11:36:05 CDT [...] 7-15 Plz advise - proposed Nystatin Source: [facility] POWERCHART Document Id: [id number] Miscellaneous - Mary Varma APRN, C.N.P. - 02/28/2014 10:33 AM CDT Ambulatory Patient Summary [facility] [address] [facility] [place], [place] [phone] Visit Information Name: KATHRYN LEON [facility] Number: [id number] Current Date: 02/28/2014 10:33:17 Physicians Attending Provider: MARY VARMA RN, PROMOTIONS FIRM ACCOUNTS MANAGER Primary Care Provider: MARY VARMA RN, PROMOTIONS FIRM ACCOUNTS MANAGER KATHRYN LEON has been given the following [...] Vaginal, 2 times a week Member No [id number] This is a CHANGE ferrous sulfate (ferrous sulfate 325 mg (65 mg elemental iron) oral tablet) 1 Tablet(s), Oral, once a day fexofenadine-pseudoephedrine (Rochelle-D 12 Hour 60 mg-120 mg oral tablet, extended release) 1 Tablet(s), Oral, two times a day [employer] [phone] fluticasone nasal (Flonase 0.05 mg/inh nasal spray) 2 [place](s), Nostrils(Both), once a day *gabapentin (gabapentin 300 [...] emergency. Electronically Signed By: MARY VARMA RN, PROMOTIONS FIRM ACCOUNTS MANAGER Signed On:28-FEB-2014 10:32:44 Your Allergies & Intolerances [...] Source: [facility] POWERCHART Document Id: [id number] Miscellaneous - Mary Varma APRN, C.NOlivia - 02/28/2014 10:33 AM CDT Ambulatory Discharge Medication List [place] [address] [place], [place] [phone] Visit Information Name: KATHRYN LEON [facility] Number: [id number] Visit Date: 02/28/2014 10:33:14 Attending Provider: MARY VARMA RN, PROMOTIONS FIRM ACCOUNTS MANAGER Primary Care Provider: MARY VARMA RN, PROMOTIONS FIRM ACCOUNTS MANAGER KATHRYN LEON has been given the following [...] Vaginal, 2 times a week Member No [id number] This is a CHANGE ferrous sulfate (ferrous sulfate 325 mg (65 mg elemental iron) oral tablet) 1 Tablet(s), Oral, once a day fexofenadine-pseudoephedrine (Rochelle-D 12 Hour 60 mg-120 mg oral tablet, extended release) 1 Tablet(s), Oral, two times a day [employer] [phone] fluticasone nasal (Flonase 0.05 mg/inh nasal spray) 2 [place](s), Nostrils(Both), once a day *gabapentin (gabapentin 300 [...] emergency. Electronically Signed By: MARY VARMA RN, PROMOTIONS FIRM ACCOUNTS MANAGER Signed On:28-FEB-2014 10:32:44 Additional Information: Source: [facility] POWERCHART Document Id: [id number] Miscellaneous - Sujatha Batista L.P.NDann - 02/28/2014 [...] BATISTA LPN - 02/28/2014 9:43 CDT [facility] Document Id: [id number] CDT!10 Miscellaneous - Sujatha Batista L.P.N. - 02/28/2014 9:25 AM CDT Adult Otr Flatbed Driver Intake/History Adult Otr Flatbed Driver Intake/History Entered On: 02/28/2014 9:31 CDT Performed [...] Communication Mode : Verbal Languages : Chilean SUJATHA BATISTA LPN - 02/28/2014 9:25 CDT [...] BATISTA LPN - 02/28/2014 9:25 CDT Source: [employer] Document Id: [id number] CDT!5 documented in this encounter Plan of Treatment Not on filedocumented as of this encounter Visit Diagnoses Not on filedocumented in this encounter
--- OUTSIDE RECORDS SUMMARY | 2022-05-23 11:32 | XMS_ITS | Encounter Summary ---
:1935 Author Organization [facility] Address [address] [place] [address] Care Team Providers Name Role Phone Unavailable Primary Care Provider Unavailable Encounter Details Date Type Department Care Team Description 04/10/2014 Hospital Encounter HX [facility] Mary Varma, CYRIL, C.N.P., D. N.P. [address] [place] [address] (Wo rk) Social History Tobacco [...] APRN, C.N.P. - 04/10/2014 10:45 AM CDT [id number] CHIEF COMPLAINT/REASON FOR VISIT Hand injury. HISTORY [...] RN, CNP On: 04/12/2014 04:19 PM Source: [facility] MHSDOLBEYNONRADSYS Document Id: [id number] documented in this encounter Miscellaneous Notes Miscellaneous [...] for her eye surgery with Dr. Cadena, [facility]. surgery was canceled and rescheduled for 07-24-14. It is less than 6 months, does she need to repeat, or does she need to come in for an update? pt number [id number] Source: [facility] [employer] Document Id: [id number] Payton - Lian Noonan LDannP.N. - 04/10/2014 [...] LPN, RT - 04/10/2014 11:17 CDT Source: [facility] [employer] Document Id: [id number] CDT!7 Payton - Lian Noonan L.P.N. - 04/10/2014 11:11 AM CDT Adult Medical Assistant Per Diem Intake/History Adult Medical Assistant Per Diem Intake/History Entered On: 04/10/2014 11:15 CDT Performed [...] Preferred Communication Mode : Verbal Languages : [place] Sudanese LIAN NOONAN LPN, 04/10/2014 11:11 CDT Subjective [...] LIAN NOONAN LPN, 04/10/2014 11:11 CDT Source: [employer] Document Id: [id number] CDT!39 documented in this encounter Plan of Treatment Not on filedocumented as of this encounter Visit Diagnoses Not on filedocumented in this encounter
--- OUTSIDE RECORDS SUMMARY | 2022-05-23 11:32 | XMS_ITS | Encounter Summary ---
:1935 Author Organization [facility] Address [address] [place] [address] Care Team Providers Name Role Phone Unavailable Primary Care Provider Unavailable Encounter Details Date Type Department Care Team Description 11/14/2013 Hospital Encounter HX [facility] Mary Cortez, CYRIL, C.N.P., D. N.P. [address] [place] [phone] (Wo rk) Social History Tobacco Use [...] Provider Ser - 11/14/2013 9:34 AM CST [id number] CHIEF COMPLAINT/REASON FOR VISIT Initial wellness coaching visit. OBJECTIVE INFORMATION/SESSION OVERVIEW Patient was seen in [facility] today for initial wellness coaching visit around [...] WIL BARR On: 11/16/2013 11:17 AM Source: [facility] MHSDOLBEYNONRADSYS Document Id: [id number] documented in this encounter Plan of Treatment Not on filedocumented as of this encounter Visit Diagnoses Not on filedocumented in this encounter
--- OUTSIDE RECORDS SUMMARY | 2022-05-23 11:32 | XMS_ITS | Encounter Summary ---
:1935 Author Organization [facility] Address [address] [place] [address] Care Team Providers Name Role Phone Unavailable Primary Care Provider Unavailable Encounter Details Date Type Department Care Team Description 06/03/2015 Hospital Encounter HX [facility] ED Cristina Villagomez M.D. [address] [place] [address] 021 (Wo rk) Social History Tobacco Use [...] 06/03/2015 10:25 PM CDT ED Discharge Instructions [address] [address] Name: KATHRYN LEON Date of : 1935 12:00 AM Visit Date: 06/03/2015 8:54 PM [facility] Number: [id number] Address: [address] [place] [id number] Primary Care Provider: ALBANIA VARMA RN, PRE OWNED SALES CONSULTANT IMPORTANT: [facility] in [place] would like to thank you for allowing us to assist you with your healthcare needs. The following includes patient education materials and informationregarding your injury/illness. Diagnosis: Numbness NOS; Reaction Allergic Pers Hx Follow-Up Instructions: With: Address: When: ALBANIA KOJO [address] [address] Business (1) Within As Needed Your Upcoming [...] may be helpful. You may locate an human services care specialist in your area by contacting: ?? [employer] [email or web address] ?? [employer] [email or web address] [...] Blood or mucus in the stool ?? [id number] [facility], [address] [place] [address], [place] [address]. All rights reserved. This information is not [...] dont have one. Go to [email or web address] and click on Create Your Account. Then, follow the directions to complete the online form. Youll be asked for your [facility] number which you can find at [...] but referred patient to Dr. Mosley at [facility] fluticasone nasal (Flonase 0.05 mg/inh nasal spray) 2 spray(s) Nostrils(Both) once a day estradiol topical (Vagifem 10 mcg vaginal tablet) 10 mcg Vaginal 2 times a week Member No [phone] meclizine (meclizine 12.5 mg oral tablet) 1-2 tab(s) Oral three times a day as needed for Dizziness gabapentin (gabapentin 300 mg oral capsule) 900 mg Oral once a day fexofenadine-pseudoephedrine (Rochelle-D 12 Hour 60 mg-120 mg oral tablet, extended release) 1 tab(s)Oral two times a day [facility] [phone] ferrous sulfate (ferrous sulfate 325 mg (65 [...] document has images extracted. Please consider using [employer] for all your patient education needs. Source: [facility] POWERCHART Document Id: [id number] Addis Montoya R.N. - 06/03/2015 10:25 PM CDT ED Depart Summary [facility] Emergency Department Clinical Discharge Summary PERSON INFORMATION Name KATHRYN LEON Age 80 Years 1935 12:00 AM Sex Female Language [place] Islander PCP ALBANIA VARMA RN, PRE OWNED SALES CONSULTANT Marital Status Visit Id Visit Reason Allergic reaction - minor; Possible Alergic reaction, throat swelling Specialty Enc Type Emergency Med Service Emergency Medicine Referred by Track Group [facility] ED Discharge 06/03/2015 10:13 PM Tracking Id [id number] Checkout 06/03/2015 10:13 PM Checkin 06/03/2015 8:54 PM Acuity 3 -Urgent Dispo Type * Discharged to Home or Self Care Arrival 06/03/2015 8:54 PM Reg Status Complete LOS 000 01:19 Address: [address] [place], [place] [id number] Comment: PROVIDER INFORMATION Provider Role Provider Contact Time AZAR VILLAGOMEZ MD ED Provider 06/03/15 21:02 ADDIS MONTOYA WEB FEEDER Nurse 06/03/15 21:12 DIAGNOSIS Numbness NOS; Reaction Allergic Pers Hx Comment: PATIENT EDUCATION INFORMATION Instructions: FOOD ALLERGY Follow up: With: Address: When: ALBANIA VARMA [address] [place] [address] [place] [address] Business (1) Within As Needed Source: [facility] POWERCHART Document Id: [id number] documented in this encounter Medications at Time [...] MONTOYA RN - 06/03/2015 22:23 CDT Source: [employer] Document Id: [id number] CDT!7 Addis Montoya R.N. - 06/03/2015 10:23 PM CDT ED Pain Assessment ED Pain Assessment Entered On: 06/03/2015 22:23 CDT Performed On: 06/03/2015 22:23 CDT by ADDIS MONTOYA RN Pain Assessment Pain Symptoms : No ADDIS MONTOYA RN - 06/03/2015 22:23 CDT Source: [employer] Document Id: [id number] CDT!3 Azar Villagomez M.D. - 06/03/2015 9:19 [...] mentions that when she went to the [facility] this year, she ate some taffy and had a similar sensation in her mouth. Since she and her are planning a trip, she requested an Epi-Pen from her provider. She has never used one. She does not feel the need to use it now. She denies dyspnea, nausea, vomiting, dizziness, or rash. She will be seeing ENT at [place] tomorrow with regard to a vocal cord [...] VILLAGOMEZ MD On: 06/03/2015 09:55 PM Source: [facility] POWERCHART Document Id: [id number]} Addis Montoya R.N. - 06/03/2015 9:09 PM [...] Medical ; Code: 790.6 ; Contributor System: Limtel ; Last Updated: 11/17/2014 12:51 CELLULAR EQUIPMENT INSTALLER ; Life Cycle Status: Active ; Responsible [...] System: PowerChart ; Last Updated: 10/25/2010 20:18 CELLULAR EQUIPMENT INSTALLER ; Life Cycle Date: 10/25/2010 ; Life Cycle Status: Active ; Responsible Provider: PATTI ALMENDAREZ LPN; Vocabulary: ICD-9-CM Atrophic vaginitis (ICD-9-CM :627.3 ) Name of Problem: Atrophic vaginitis ; Onset Date: 07/27/2012 ;Recorder: ALBANIA VARMA RN, CNP; Confirmation: Confirmed ; Classification: Medical ; Code: 627.3 ; Last Updated: 07/27/2012 11:32 CELLULAR EQUIPMENT INSTALLER ; Life Cycle Status: Active ; Responsible Provider: ALBANIA VARMA CNP; Vocabulary: ICD-9-CM Bursitis Hip/Trochanertic (ICD-9-CM :726.5 ) Name of Problem: Bursitis Hip/Trochanertic ; Onset Date: 10/20/2011 ; Recorder: ALBANIA VARMA RN, CNP; Confirmation: Confirmed ; Classification: Medical ; Code: 726.5 ; Last Updated: 10/20/2011 9:54 CELLULAR EQUIPMENT INSTALLER ; Life Cycle Status: Active ; Responsible Provider: ALBANIA VARMA RN, CNP; Vocabulary: ICD-9-CM Cataract NOS (ICD-9-CM :366.9 ) Name of Problem: Cataract NOS ; Onset Date: 1991 ; Recorder: PATTI ALMENDAREZ LPN; Confirmation: Confirmed ; Classification: Nursing ; Code: 366.9 ; Contributor System: Limtel ; Last Updated: 01/21/2011 10:04 CDT ; [...] ContributorSystem: PowerChart ; Last Updated: 10/25/2010 20:20 CELLULAR EQUIPMENT INSTALLER ; Life Cycle Date: 10/25/2010 ; Life [...] Provider: ALBANIA VARMA RN, IVANA; Vocabulary: ICD-9-CM Diverticulitis of large intestine (ICD-9-CM :562.11 ) Name of Problem: Diverticulitis of large intestine ; Onset Date: 10/28/2010 ; Recorder: ALBANAI VARMA RN, IVANA; Confirmation: Confirmed ; Classification: Medical ; Code: 562.11 ; Last Updated: 10/28/2010 16:30 CELLULAR EQUIPMENT INSTALLER ; Life Cycle Status: Active ; Respo nsible Provider: ALBANIA VARMA RN, IVANA; Vocabulary: ICD-9-CM Eye disorder (ICD-9-CM :379.8 ) Name of Problem: Eye disorder ; Recorder: TAMMY ACEVES MD; Confirmation: Confirmed ; Classification: UPDATE NEEDED ; Code: 379.8 ; Contributor System: Limtel ; Last Updated: 01/05/2012 19:00 CDT ; Life Cycle Date: 01/05/2012 ; Life Cycle Status: Active ; Responsible Provider: TAMMY ACEVES MD; Vocabulary: ICD-9-CM ; Comments: 01/21/2012 9:37 - MATTHEW BORDEN LPN date unknown Fracture of rib (SNOMED CT :56496340 ) Name of Problem: Fracture of rib ; Onset Date: 05/12/2013 ; Recorder: SUJATHA MAR LPN; Confirmation: Confirmed ; Classification: Nursing ; Code: 05654970 ;Contributor System: ReniacChart ; Last Updated: 06/07/2013 8:10 CDT ; Life Cycle Date: 06/07/2013 ; Life Cycle Status: Active ; Responsible Provider: SUJATHA MAR LPN; Vocabulary: SNOMED CT ; Comments: 06/07/2013 8:10 - SUJATHA MAR LPN left side Glaucoma (ICD-9-CM :365.44 ) Name of Problem: Glaucoma ; Onset Date: 1986 ; Recorder: PATTI ALMENDAREZ LPN; Confirmation: Confirmed ; Classification: Nursing ; Code: 365.44 ; Contributor System: ReniacChart ; Last Updated: 01/21/2011 10:05 CDT ; Life Cycle Date: 10/25/2010 ; Life Cycle Status: Active ; Responsible Provider: ERICKSON, PATTI L SPEECH THERAPIST; Vocabulary: ICD-9-CM ; Comments: 12/31/2010 12:11 - PATTI ALMENDAREZ L SPEECH THERAPIST date unknown Glaucoma (SNOMED CT :78236664 ) Name of Problem: Glaucoma ; Recorder: TAMMY ACEVES MD; Confirmation: Confirmed ; Classification: Medical ; Code: 09116795 ; Contributor System: Limtel ; Last Updated: 01/05/2012 18:52 CDT ; Life Cycle Date: 01/05/2012 ; Life Cycle Status: Active ; ResponsibleProvider: TAMMY ACEVES MD; Vocabulary: SNOMED CT ; Comments: 01/21/2012 9:37 - SUHAMATTHEW SPEECH THERAPIST date unknown Hernia, hiatal (ICD-9-CM :553.3 ) Name of Problem: Hernia, hiatal ; Onset Date: 10/31/2013 ; Recorder: ALBANIA VARMA RN, CNP; Confirmation: Confirmed ; Classification: Medical ; Code: 553.3 ; Last Updated: 10/31/2013 11:53 CELLULAR EQUIPMENT INSTALLER ; Life Cycle Status: Active ; Responsible Provider: ALBANIA VARMA RN, CNP; Vocabulary: ICD-9-CM 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 (ICD-9-CM :722.10 ) Name of Problem: 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 ; Recorder: ALBANIA VARMA RN, CNP; Confirmation: Confirmed ; Classification: Medical ; Code: 722.10 ; Contributor System: ReniacChart ; Last Updated: 11/04/2010 9:49 CELLULAR EQUIPMENT INSTALLER ; Life Cycle Date: 11/04/2010 ; Life Cycle Status: Active ; Responsible Provider: ALBANIA VARMA RN, CNP; Vocabulary: ICD-9-CM ; Comments: 12/31/201012:11 - PATTI ALMENDAREZ SPEECH THERAPIST date unknown Osteopenia (ICD-9-CM :733.90 ) Name of Problem: Osteopenia ; Onset Date: 02/26/1987 ; Recorder: PATTI ALMENDAREZ LPN; Confirmation: Confirmed ; Classification: Nursing ; Code: 733.90 ; Contributor System: ReniacChart ; Last Updated: 10/25/2010 20:19 CELLULAR EQUIPMENT INSTALLER ; Life Cycle Date: 10/25/2010 ; Life Cycle Status: Active ; Responsible Provider: PATTI ALMENDAREZ LPN; Vocabulary: ICD-9-CM Diagnoses(Active) Allergic reaction - minor Date: 06/03/2015 ; Diagnosis Type: Reason For Visit ; Confirmation: Complaint of ; Clinical Dx: Allergic reaction - minor ; Classification: Medical ; Clinical Service: Emergency medicine ; Code: PNED ; Probability: 0 ; Diagnosis Code: [id number] Triage Mode of Arrival ED : Private vehicle Track : Medical Languages : [place] Islander Treatments Prior to Arrival : Home treatments [...] 1: MICONAZOLE NITRATE ; Created By: Contributor_system, [facility]_HX_ALRG_SYS; Reaction Status: Active ; Category: Drug ; Substance: miconazole topical ; Type: Unknown ;Updated By: Contributor_system [facility]_HX_ALRG_SYS; Reviewed Date: 06/03/2015 21:05 CDT Nuts Estimated [...] MONTOYA RN - 06/03/2015 21:09 CDT Source: [facility] Tower59 Document Id: [id number] CDT!43 Addis Montoya RChelsey - 06/03/2015 9:01 [...] Medical ; Code: 790.6 ; Contributor System: Limtel ; Last Updated: 11/17/2014 12:51 CELLULAR EQUIPMENT INSTALLER ; Life Cycle Status: Active ; Responsible [...] System: PowerChart ; Last Updated: 10/25/2010 20:18 CELLULAR EQUIPMENT INSTALLER ; Life Cycle Date: 10/25/2010 ; Life Cycle Status: Active ; Responsible Provider: PATTI ALMENDAREZ LPN; Vocabulary: ICD-9-CM Atrophic vaginitis (ICD-9-CM :627.3 ) Name of Problem: Atrophic vaginitis ; Onset Date: 07/27/2012 ;Recorder: ALBANIA VARMA RN, CNP; Confirmation: Confirmed ; Classification: Medical ; Code: 627.3 ; Last Updated: 07/27/2012 11:32 CELLULAR EQUIPMENT INSTALLER ; Life Cycle Status: Active ; Responsible Provider: ALBANIA VARMA CNP; Vocabulary: ICD-9-CM Bursitis Hip/Trochanertic (ICD-9-CM :726.5 ) Name of Problem: Bursitis Hip/Trochanertic ; Onset Date: 10/20/2011 ; Recorder: ALBANIA VARMA RN, CNP; Confirmation: Confirmed ; Classification: Medical ; Code: 726.5 ; Last Updated: 10/20/2011 9:54 CELLULAR EQUIPMENT INSTALLER ; Life Cycle Status: Active ; Responsible [...] ContributorSystem: PowerChart ; Last Updated: 10/25/2010 20:20 CELLULAR EQUIPMENT INSTALLER ; Life Cycle Date: 10/25/2010 ; Life [...] Code: 562.11 ; Last Updated: 10/28/2010 16:30 CELLULAR EQUIPMENT INSTALLER ; Life Cycle Status: Active ; Respo nsible Provider: ALBANIA AVRMA RN, CNP; Vocabulary: ICD-9-CM Eye disorder (ICD-9-CM :379.8 ) Name of Problem: Eye disorder ; Recorder: TAMMY ACEVES MD; Confirmation: Confirmed ; Classification: UPDATE NEEDED ; Code: 379.8 ; Contributor System: PowerChart ; Last Updated: 01/05/2012 19:00 CDT ; Life Cycle Date: 01/05/2012 ; Life Cycle Status: Active ; Responsible Provider: TAMMY ACEVES MD; Vocabulary: ICD-9-CM ; Comments: 01/21/2012 9:37 - MATTHEW BORDEN SPEECH THERAPIST date unknown Fracture of rib (SNOMED CT :72964903 ) Name of Problem: Fracture of rib ; Onset Date: 05/12/2013 ; Recorder: SUJATHA MAR LPN; Confirmation: Confirmed ; Classification: Nursing ; Code: 16292246 ;Contributor System: PowerChart ; Last Updated: 06/07/2013 [...] ALMENDAREZ LPN date unknown Glaucoma (SNOMED CT :59695962 ) Name of Problem: Glaucoma ; Recorder: TAMMY ACEVES MD; Confirmation: Confirmed ; Classification: Medical ; Code: 39882377 ; Contributor System: PowerChart ; Last Updated: 01/05/2012 18:52 CDT ; Life Cycle Date: 01/05/2012 ; Life Cycle Status: Active ; ResponsibleProvider: TAMMY ACEVES MD; Vocabulary: SNOMED CT ; Comments: 01/21/2012 9:37 - MATTHEW BORDEN LPN date unknown Hernia, hiatal (ICD-9-CM :553.3 ) Name of Problem: Hernia, hiatal ; Onset Date: 10/31/2013 ; Recorder: ALBANIA VARMA RN, PRE OWNED SALES CONSULTANT; Confirmation: Confirmed ; Classification: Medical ; Code: 553.3 ; Last Updated: 10/31/2013 11:53 CELLULAR EQUIPMENT INSTALLER ; Life Cycle Status: Active ; Responsible Provider: ALBANIA VARMA RN, CNP; Vocabulary: ICD-9-CM 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 (ICD-9-CM :722.10 ) Name of Problem: 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 ; Recorder: ALBANIA VARMA RN, CNP; Confirmation: Confirmed ; Classification: Medical ; Code: 722.10 ; Contributor System: ReniacChart ; Last Updated: 11/04/2010 9:49 CELLULAR EQUIPMENT INSTALLER ; Life Cycle Date: 11/04/2010 ; Life Cycle Status: Active ; Responsible Provider: ALBANIA VARMA RN, CNP; Vocabulary: ICD-9-CM ; Comments: 12/31/201012:11 - PATTI ALMENDAREZ LPN date unknown Osteopenia (ICD-9-CM :733.90 ) Name of Problem: Osteopenia ; Onset Date: 02/26/1987 ; Recorder: PATTI ALMENDAREZ LPN; Confirmation: Confirmed ; Classification: Nursing ; Code: 733.90 ; Contributor System: ReniacChart ; Last Updated: 10/25/2010 20:19 CELLULAR EQUIPMENT INSTALLER ; Life Cycle Date: 10/25/2010 ; Life Cycle Status: Active ; Responsible Provider: PATTI ALMENDAREZ LPN; Vocabulary: ICD-9-CM Diagnoses(Active) Allergic reaction - minor Date: 06/03/2015 ; Diagnosis Type: Reason For Visit ; Confirmation: Complaint of ; Clinical Dx: Allergic reaction - minor ; Classification: Medical ; Clinical Service: Emergency medicine ; Code: PNED ; Probability: 0 ; Diagnosis Code: [id number] Triage Chief Complaint Description : ate a cookie that possible had nuts in it. ate one at 1500 then ante another at 2000. last reacton happened 40 years ago lep and throuth feel tingly Mode of Arrival ED : Private vehicle Track : Medical Languages : [place] Islander Vital Signs Assessed : Yes Treatments Prior [...] Acuity : 3 -Urgent Tracking Group : [facility] ED THERESE, ADDIS Howard RN - 06/03/2015 21:01 CDT Allergy (As Of: 06/03/2015 21:05:06 CDT) Allergies (Active) Glutens Estimated Onset Date: Unspecified ; Created By: PATTI ALMENDAREZ LPN; Reaction Status: Active; Category: Drug ; Substance: Glutens ; Type: Allergy ; Updated By: PATTI ALMENDAREZ LPN; Reviewed Date: 06/03/2015 21:05 CDT miconazole topical Comments: Comment 1: MICONAZOLE NITRATE ; Created By: Contributor_system, [facility]_HX_ALRG_SYS; Reaction Status: Active ; Category: Drug ; Substance: miconazole topical ; Type: Unknown ;Updated By: Contributor_system [facility]_HX_ALRG_SYS; Reviewed Date: 06/03/2015 21:05 CDT Nuts Estimated Onset Date: Unspecified ; Created By: PATTI ALMENDAREZ LPN; Reaction Status: Active ; Category: Food ; Substance: Nuts ; Type: Allergy ; Updated By: PATTI ALMENDAREZ LPN; Reviewed Date: 06/03/2015 21:05 CDT Source: [employer] Document Id: [id number] CDT!28 documented in this encounter Miscellaneous Notes Miscellaneous - Addis Montoya R.N. - 06/03/2015 10:24 PM CDT Valuables/Belongings Valuables/Belongings Entered On: 06/03/2015 22:24 CDT Performed On: 06/03/2015 22:24 CDT by ADDIS MONTOYA RN Valuables/Belongings Home Medication Disposition : None brought in with patient ADDIS MONTOYA RN - 06/03/2015 22:24 CDT Source: [employer] Document Id: [id number] CDT!3 Miscellaneous - Conversion, Historical Provider Ser - 06/03/2015 10:13 PM CDT Coding Summary-Paper Based CODING DATE: 07/18/2015 FINAL [facility] STATUS: * Discharged to Home [...] SOMMER Date Saved: 07/18/2015 05:34 pm Source: [employer] Document Id: [id number] Miscellaneous - Addis Montoya, R.N. - 06/03/2015 [...] Nursing Notes ED Primary Assessment,06/03/15 21:09,ADDIS MONTOYA WEB FEEDER Pain Assessment,06/03/15 22:23,ADDIS MONTOYA RN [facility]x Nursing Assessment : Triage and 1-2 nursing assessments Lynx Disposition : Discharge Disposition RTF : discharge [facility]x Total Points with Diagnosis Control : 5 Lynx Visit Level : 21537 Level 3 Treatments Prior to Arrival : Home treatments ADDIS MONTOYA RN - 06/03/2015 22:24 CDT Source: [employer] Document Id: [id number] CDT!18 documented in this encounter Plan of Treatment Not on filedocumented as of this encounter Visit Diagnoses Not on filedocumented in this encounter
--- OUTSIDE RECORDS SUMMARY | 2022-05-23 11:32 | XMS_ITS | Encounter Summary ---
:1935 Author Organization [facility] Address [address] [place] [address] Care Team Providers Name Role Phone Unavailable Primary Care Provider Unavailable Encounter Details Date Type Department Care Team Description 04/11/[address] [facility] Aries Solano M.D. [address] [place], [place] [phone] (Wo rk) Social History [...] 1.10 MGDL eGFR >60 >=60 POWERCHART Black/ [id number] Bulgarian HXeGFR (MDRD) 54 (L) >=60 POWERCHART [id number] Comment: Results are in mL/min/1.73m CKD Stage [...]
--- OUTSIDE RECORDS SUMMARY | 2022-05-23 11:32 | XMS_ITS | Encounter Summary ---
:1935 Author Organization [facility] Address [address] [place] [address] Care Team Providers Name Role Phone Unavailable Primary Care Provider Unavailable Encounter Details Date Type Department Care Team Description 03/30/2015 Hospital Encounter HX [facility] Jamie Camacho M.D. [address] [place], [place] [phone] (Wo rk) Social History [...] Camacho M.D. - 03/30/2015 1:01 PM CDT [id number] Ms. Leon is a very pleasant 80-year-old woman. CHIEF COMPLAINT/REASON FOR VISIT Follow up hoarseness, left vocal cord mobility uncertainty. HISTORY OF PRESENT ILLNESS Ms. Leon initially presented March 15, with a 2-month history of what sounded like fairly sudden onset hoarseness. She estimated yylx-ak-gyeqsrhq severity. It seemed to start following a sinus infection while she was on vacation in [place], and she was so tired and felt [...] like her to see Dr. Mosley in [place] for further evaluation and opinion. I will defer CT scanning given some mobility ofthe left chord. Consider external compression of the recurrent laryngeal nerve, also movement disorder/neurological source. 2. History of left eyelid ptosis. Jamie Camacho M.D./farhat cc: Dav Mosley M.D. [address] [address] Electronically Signed By: JAMIE CAMACHO MD On: 04/03/2015 07:39 AM Source: [facility] MHSDOLBEYNARTURSYS Document Id: [id number] documented in this encounter Miscellaneous Notes Telephone [...] CDT Bello, can you please check with [place] to see if there is anyway to [...] ) Other: Physician: Russ Patient Reason for Call:[place] [facility] appt Message: Pt called concerned as her [facility] appt is not until May 28 [...] back cell phone number ( ) Source: [facility] POWERCHART Document Id: [id number] Telephone Encounter - Conversion, Historical Provider Ser - 04/04/2015 12:01 PM CDT Outside Referral [place] Document Contains Addenda Addendum by JESUS ALBERTO DE LA PAZ on 10 April 2015 13:23:37 CDT Thank you for your referral.? We welcome the opportunity to be of service to your patient. We are pleased to confirm an appointment as follows: Date: 05/28/2015 Time: 8:55 am Location: [facility], 12th Floor, [facility] Department: Department of Otorhinolaryngology (ENT) Provider: Dr. [...] patient has a Consult to Outside Specialist [place]: order placed. Patient Name: BRIANA LEON Diagnosis: Unilateral Partial Paralysis of Vocal Cords,Partial Paralysis of Vocal Cords, Ordering Provider: JAMIE CAMACHO MD ; Original Order DT/TM: March 30, 2015 15:46:09 CDT ; Order: Consult to Outside Specialist [place] ; Order Details: Referral For: Adult Department: ENT Reason For Visit: abnormal left vocal cord movement Why Needs cannot be met : NOT FOUND Why Needs cannot be met - FH : NOT FOUND Why Needs cannot be met [place] : Service not available at [facility] Facility : [facility] FH : NOT FOUND Appointment Type: Consult [...] Paresis Of Vocal Cord Unilateral Partial Source: [facility] POWERGushcloud Document Id: [id number] Miscellaneous - Sujatha Santos RDannNDann - 03/30/2015 1:55 PM CDT 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 Intake/History 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 Intake/History Entered On: 03/30/2015 13:55 CDT Performed On: 03/30/2015 13:55 CDT by SUJATHA SANTOS [facility] Intake Chief Complaint : recheck throat SUJATHA SANTOS [facility] - 03/30/2015 13:55 CDT General Info Information Given By : Patient Languages : Wolof Is Patient Female and [...] Grid Drug Use : None SUJATHA SANTOS [facility] - 03/30/2015 13:55 CDT [facility] Document Id: [id number] CDT!21 documented in this encounter Plan of Treatment Not on filedocumented as of this encounter Visit Diagnoses Not on filedocumented in this encounter
--- OUTSIDE RECORDS SUMMARY | 2022-05-23 11:33 | XMS_ITS | Encounter Summary ---
:1935 Author Organization [facility] Address [address] [place] [address] Care Team Providers Name Role Phone Unavailable Primary Care Provider Unavailable Encounter Details Date Type Department Care Team Description 11/02/2012 Hospital Encounter HX [facility] ME Mary Varma, CYRIL, C.N.P., D. N.P. [address] [place] [phone] (Wo rk) Social History Tobacco Use Types Packs/Day Years Used Date Smoking Tobacco: Never Assessed Sex Assigned at Date Recorded Not on file documented as of this encounter Last Filed Vital Signs Vital Sign Reading Time Taken Comments Blood Pressure 114/68 11/02/2012 11:15 AM MANUAL LATHE MACHINIST Pulse 80 11/02/2012 11:15 AM MANUAL LATHE MACHINIST Temperature - - Respiratory Rate 16 11/02/2012 11:15 AM MANUAL LATHE MACHINIST Oxygen Saturation - - Inhaled Oxygen Concentration - - Weight 73.3 kg (161 lb 9.6 oz) 11/02/2012 11:15 AM MANUAL LATHE MACHINIST Height - - Body Mass Index 27.93 [...] APRN, C.N.P. - 11/02/2012 11:05 AM CST [id number] CHIEF COMPLAINT/REASON FOR VISIT Fall. HISTORY OF [...] understanding of the content Aakash Quiroga/dianna DOCID: [id number] Electronically Signed By: MRAY VARMA RN, IVANA On: 11/03/2012 12:22 PM Source: [facility] MHSDOLBEYNONRADSYS Document Id: [id number] AL LATHE MACHINIST documented in this encounter Miscellaneous Notes Miscellaneous - Mary Varma APRN, C.NTerri. - 11/02/2012 12:01 PM CST Ambulatory Patient Summary [address] [address] Visit Information Name: KATHRYN LEON [facility] Number: [id number] Current Date: 11/02/2012 12:01:04 Physicians Attending Provider: MARY VARMA RN, TRAIN CONTROL TECHNICIAN Primary Care Provider: MARY VARMA RN, TRAIN CONTROL TECHNICIAN Your Medications Here is a list [...] No Appointments found Your Goals/Additional instructions: Source: [facility] POWERCHART Document Id: [id number] AL LATHE MACHINIST Miscellaneous - aMry Varma APRN, C.N.P. - 11/02/2012 12:01 PM CST Ambulatory Depart Summary [address] [address] Visit Information Name: KATHRYN LEON [facility] Number: [id number] Visit Date: 11/02/2012 12:01:02 Attending Provider: MARY VARMA RN, TRAIN CONTROL TECHNICIAN Primary Care Provider: MARY VARMA RN, TRAIN CONTROL TECHNICIAN KATHRYN LEON has been given the following [...] provider for clarification. Additional Information: Source: [facility] POWERCHART Document Id: [id number] AL LATHE MACHINIST Miscellaneous - Sjuatha Batista L.PDannN. - 11/02/2012 11:15 AM CST Adult Cigarette Package Examiner Intake/History Adult Cigarette Package Examiner Intake/History Entered On: 11/02/2012 11:20 MANUAL LATHE MACHINIST Performed On: 11/02/2012 11:15 MANUAL LATHE MACHINIST by SUJATHA BATISTA LPN Intake Chief Complaint [...] 73.30kg SUJATHA BATISTA LPN - 11/02/2012 11:15 MANUAL LATHE MACHINIST General Info Information Given By : Patient Preferred Communication Mode : Verbal Languages : Estonian SUJATHA BATISTA LPN 11/02/2012 11:15 MANUAL LATHE MACHINIST Subjective Pain Symptoms : Yes SUJATHA BATISTA LPN 11/02/2012 11:15 MANUAL LATHE MACHINIST Pain Pain Assessment Grid Pain 1 Location : Lower back Laterality : Right Intensity : 2 SUJATHA BATISTA LPN 11/02/2012 11:15 MANUAL LATHE MACHINIST Dependent Habits Tobacco Use/Currently Using : No Exposure to Tobacco Smoke : Care provider denies smoking in home Smoking Status : Never smoker SUJATHA BATISTA LPN 11/02/2012 11:15 MANUAL LATHE MACHINIST Tobacco Use Grid Last Use : never SUJATHA BATISTA LPN 11/02/2012 11:15 MANUAL LATHE MACHINIST Alcohol Use : Yes SUJATHA BATISTA LPN 11/02/2012 11:15 MANUAL LATHE MACHINIST Caffeine Use Grid Caffeine Use : Current Type : Coffee Frequency : Weekly SUJATHA BATISTA LPN 11/02/2012 11:15 MANUAL LATHE MACHINIST Recreational Drug Use Grid Drug Use : None SUJATHA BATISTA LPN 11/02/2012 11:15 MANUAL LATHE MACHINIST Allergy Allergies (Active) Glutens Estimated Onset Date: Unspecified ; Created By: PATTI ALMENDAREZ LPN; Reaction Status: Active; Category: Drug ; Substance: Glutens ; Type: Allergy ; Updated By: PATTI ALMENDAREZ LPN; Reviewed Date: 08/30/2012 9:39 MANUAL LATHE MACHINIST Nuts Estimated Onset Date: Unspecified ; Created By: PATTI ALMENDAREZ LPN; Reaction Status: Active ; Category: Food ; Substance: Nuts ; Type: Allergy ; Updated By: PATTI ALMENDAREZ LPN; Reviewed Date: 08/30/2012 9:39 MANUAL LATHE MACHINIST Source: [facility] [employer] Document Id: [id number] AL LATHE MACHINIST documented in this encounter Plan of Treatment Not on filedocumented as of this encounter Visit Diagnoses Not on filedocumented in this encounter
--- OUTSIDE RECORDS SUMMARY | 2022-05-23 11:33 | XMS_ITS | Encounter Summary ---
:1935 Author Organization [facility] Address [address] [place] [address] Care Team Providers Name Role Phone Unavailable Primary Care Provider Unavailable Encounter Details Date Type Department Care Team Description 07/05/2013 Hospital Encounter HX [facility] ME Mary [place], CYRIL, C.N.P., D. N.P. [address] [place] [phone] (Wo rk) Social History Tobacco Use [...]
--- OUTSIDE RECORDS SUMMARY | 2022-05-23 11:33 | XMS_ITS | Encounter Summary ---
:1935 Author Organization [facility] Address [address] [place] [address] Care Team Providers Name Role Phone Unavailable Primary Care Provider Unavailable Encounter Details Date Type Department Care Team Description 07/04/2013 Hospital Encounter HX [facility] CAM FAMILY ME Mary [place], CYRIL, C.N.P., D. N.P. [address] [place] [phone] (Wo rk) Social History Tobacco Use [...]
--- OUTSIDE RECORDS SUMMARY | 2022-05-23 11:33 | XMS_ITS | Encounter Summary ---
:1935 Author Organization [facility] Address [address] [place] [address] Care Team Providers Name Role Phone Unavailable Primary Care Provider Unavailable Encounter Details Date Type Department Care Team Description 08/02/2012 Hospital Encounter HX [facility] CAM FAMILY ME [place] Varma, CYRIL, C.N.P., D. N.P. [address] [place] [address] (Wo rk) Social History Tobacco [...] LAINEZ RN on 29 September 2012 16:03:57 WELDER EXPERIMENTAL [facility] [place] Pharmacist stated that although 3 refills were written, they would only be able to supply 1 due to the D it is considered a controlled substance. Addendum by ALBANIA VARMA RN, MARINE DRAFTER on 29 September 2012 15:15:46 WELDER EXPERIMENTAL From: ALBANIA VARMA RN, MARINE DRAFTER To: JERONIMO LAINEZ RN; Sent: 09/29/2012 15:15:46 WELDER EXPERIMENTAL Subject: RE: General Message please fax script. Thanks Addendum by ALBANIA VARMA RN, IVANA on 29 September 2012 15:15:33 WELDER EXPERIMENTAL Submitted: Order Order: fexofenadine-pseudoephedrine (Elzbieta-D 12 Hour 60 mg-120 mg oral tablet, extended release) 1tab(s) PO 2xDay Qty: 180 tab(s) Refills: 3 Substitutions Allowed Print - [facility] (from [id number]) in session 32 Signed by ALBANIA VARMA RN, MARINE DRAFTER Addendum by JERONIMO LAINEZ RN on 29 September 2012 10:08:19 WELDER EXPERIMENTAL From: JERONIMO LAINEZ RN To: ALBANIA VARMA RN, MARINE DRAFTER; Sent: 09/29/2012 10:08:19 WELDER EXPERIMENTAL Subject: FW: General Message Kathryn called and left a message stating she'd like this to go to [facility] in [place] instead. From: JERONIMO LAINEZ RN To: ALBANIA VARMA RN, MARINE DRAFTER; Sent: 09/29/2012 10:01:47 WELDER EXPERIMENTAL Subject: General Message Caller is: (X ) Patient S:Pt wants rx for Elzbieta D B:Pt uses elzbieta D 60 mg BID. She does not like it when she buys it OTC that she can only buy on box at a time and that she has to show ID to make this purchase. Would like a presciption for 90 day supply sent to [facility]. R:Please approve this request if you agree Source: [facility] POWERCHART Document Id: [id number] Electronically signed by Conversion, [facility] Motor Vehicles Inspector [id number] at 02/15/2017 6:03 AM CDT documented in this encounter Plan of Treatment Not on filedocumented as of this encounter Visit Diagnoses Not on filedocumented in this encounter
--- OUTSIDE RECORDS SUMMARY | 2022-05-23 11:33 | XMS_ITS | Encounter Summary ---
:1935 Author Organization [facility] Address [address] [place] [address] Care Team Providers Name Role Phone Unavailable Primary Care Provider Unavailable Encounter Details Date Type Department Care Team Description 08/30/2012 Hospital Encounter HX [facility] ME Vanessa Dutta M.D. Social History Tobacco Use Types Packs/Day Years Used Date Smoking Tobacco: Never Assessed Sex Assigned at Date Recorded Not on file documented as of this encounter Last Filed Vital Signs Vital Sign Reading Time Taken Comments Blood Pressure 120/60 08/30/2012 9:39 AM RISK MANAGEMENT INTERNSHIP Pulse 72 08/30/2012 9:39 AM RISK MANAGEMENT INTERNSHIP Temperature - - Respiratory Rate 16 08/30/2012 9:39 AM RISK MANAGEMENT INTERNSHIP Oxygen Saturation - - Inhaled Oxygen Concentration - - Weight 75.2 kg (165 lb 12.6 oz) 08/30/2012 9:39 AM [employer] MANAGEMENT INTERNSHIP Height - - Body Mass Index 28.65 [...] Dutta M.D. - 08/30/2012 9:26 AM CST [id number] CHIEF COMPLAINT/REASON FOR VISIT Briana is here. [...] Symptomatic treatment. Return as needed. Vanessa Dutta M.D./[facility] Electronically Signed By: VANESSA DUTTA MD On: 09/03/2012 07:51 AM Source: [facility] MHSDOLBEYNONRADSYS Document Id: [id number] MANAGEMENT INTERNSHIP documented in this encounter Miscellaneous Notes Miscellaneous - Vanessa Dutta M.D. - 08/30/2012 1:08 PM CST Ambulatory Patient Summary [address] [address] Visit Information Name: BRIANA LEON [facility] Number: [id number] Current Date: 08/30/2012 13:08:08 Physicians Attending Provider: VANESSA DUTTA MD Primary Care Provider: ALBANIA VARMA RN, RENTAL AGENT Your Medications Here is a list of [...] cap(s) at bedtime Oral as directed ID [id number] fluticasone nasal (Flonase 0.05 mg/inh nasal spray) [...] No Appointments found Your Goals/Additional instructions: Source: [facility] POWERCHART Document Id: [id number] MANAGEMENT INTERNSHIP Miscellaneous - Vanessa Dutta M.D. - 08/30/2012 1:08 PM CST Ambulatory Depart Summary [address] [place] [address] Visit Information Name: BRIANA LEON [facility] Number: [id number] Visit Date: 08/30/2012 13:08:06 Attending Provider: VANESSA DUTTA MD Primary Care Provider: ALBANIA VARMA RN, RENTAL AGENT BRIANA LEON has been given the following [...] cap(s) at bedtime Oral as directed ID [id number] fluticasone nasal (Flonase 0.05 mg/inh nasal spray) [...] your provider for clarification. Additional Information: Source: [facility] POWERCHART Document Id: [id number] MANAGEMENT INTERNSHIP Miscellaneous - Tabitha Larios L.PDannNDann - 08/30/2012 9:39 AM CST Adult Management Department Chair Intake/History Adult Management Department Chair Intake/History Entered On: 08/30/2012 9:41 RISK MANAGEMENT INTERNSHIP Performed On: 08/30/2012 9:39 RISK MANAGEMENT INTERNSHIP by TABITHA LARIOS Intake Chief Complaint : [...] : 75.20kg TABITHA LARIOS - 08/30/2012 9:39 [employer] MANAGEMENT INTERNSHIP Subjective Pain Symptoms : No TABITHA LARIOS 08/30/2012 9:39 RISK MANAGEMENT INTERNSHIP Dependent Habits Tobacco Use/Currently Using : No Exposure to Tobacco Smoke : Care provider denies smoking in home Smoking Status : Never smoker TABITHA LARIOS 08/30/2012 9:39 RISK MANAGEMENT INTERNSHIP Tobacco Use Grid Last Use : never TABITHA LARIOS 08/30/2012 9:39 RISK MANAGEMENT INTERNSHIP Caffeine Use Grid Caffeine Use : Current Type : Coffee Frequency : Weekly TABITHA LARIOS 08/30/2012 9:39 RISK MANAGEMENT INTERNSHIP Recreational Drug Use Grid Drug Use : None TABITHA LARIOS 08/30/2012 9:39 RISK MANAGEMENT INTERNSHIP Allergy Allergies (Active) Glutens Estimated Onset Date: Unspecified ; Created By: PATTI ALMENDAREZ LPN; Reaction Status: Active; Category: Drug ; Substance: Glutens ; Type: Allergy ; Updated By: PATTI ALMENDAREZ LPN; Reviewed Date: 08/30/2012 9:39 RISK MANAGEMENT INTERNSHIP Nuts Estimated Onset Date: Unspecified ; Created By: PATTI ALMENDAREZ LPN; Reaction Status: Active ; Category: Food ; Substance: Nuts ; Type: Allergy ; Updated By: PATTI ALMENDAREZ LPN; Reviewed Date: 08/30/2012 9:39 RISK MANAGEMENT INTERNSHIP Source: [facility] POWERCHART Document Id: [id number] MANAGEMENT INTERNSHIP documented in this encounter Plan of Treatment Not on filedocumented as of this encounter Procedures Procedure Name Priority Date/Time Associated Diagnosis Comme nts RAPID STREP A Routine 08/30/2012 9:55 AM Results for this SCREEN [employer] MANAGEMENT [employer] procedure are i n the results section. RAPID STREP A Routine 08/30/2012 9:55 AM Results for this SCREEN [employer] MANAG[employer] procedure are i n the results section. documented in this encounter Results Rapid Strep A Screen (08/30/2012 9:55 AM R[employer] MANAGEMENT [employer]) [facility] Method Time Signature HXRapid Strep POWERCHART Confirmation HXPre Negative for POWERCHART Group A Strep by culture. HXFinal Negative for POWERCHART Group A Strep by culture. Specimen Anatomical Collection Method Collection Time Receive d Time (Source) Location / / Volume Laterality Throat 08/30/2012 9:55 AM 2 9:55 RISK MANAGEMENT INTERNSHIP AM [employer]NAGEMENT [employer]IP Vanessa Dutta M.D. LAB MICROBIOLOGY - GENERAL [place] Performing Organization Address City/State/[facility] Code Phon e Number POWERCHART Rapid Strep A Screen (08/30/2012 9:55 AM RISK MANAGEMENT INTERNSHIP) [facility] Method Time Signature HXStrep A POWERCHART Screen Rapid HXFinal Negative for POWERCHART Strep Group A by rapid screen. HXFinal Culture POWERCHART confirmation to follow. Specimen (Source) Anatomical Collection Method Collection Time Re ceived Time Location / / Volume Laterality Throat 08/30/2012 9:55 AM RISK MANAGEMENT INTERNSHIP Vanessa Dutta M.D. LAB MICROBIOLOGY - GENERAL [place] Performing Organization Address City/State/[facility] Code Phon e Number POWERCHART documented in this encounter Visit Diagnoses Not on filedocumented in this encounter
--- OUTSIDE RECORDS SUMMARY | 2022-05-23 11:33 | XMS_ITS | Encounter Summary ---
:1935 Author Organization [facility] Address [address] [place] [address] Care Team Providers Name Role Phone Unavailable Primary Care Provider Unavailable Encounter Details Date Type Department Care Team Description 05/23/2013 Hospital Encounter [facility] [address] [place] [phone] (Wo rk) Social History Tobacco Use [...] Bhakta M.D. - 05/23/2013 11:13 AM CDT [id number] CHIEF COMPLAINT/REASON FOR VISIT Follow-up hospital stay. HISTORY OF PRESENT ILLNESS Briana is a 78-year-old female who was recently admitted to the hospital. While recently in [place] she fell when getting out of the shower. She was initially seen in the emergency department in the [place] town she was in and diagnosed with a broken rib and a bruised hip. She was in a significant amount of pain and therefore her drove her all the way back to [place] and to the emergency department on ThursdayMay [...] some lightheadedness after she got home from [facility]. She feels like she could fall asleep [...] fracture is. She was sent home from [facility] with [facility], but states she has not [...] GARCIA MD On: 05/29/2013 12:38 PM Source: [facility] MHSDOLBEYNONRADSYS Document Id: [id number] documented in this encounter Nursing Notes Lian [...] LPN, RT - 05/23/2013 12:25 CDT Source: [facility] POWERCHART Document Id: [id number] CDT!16 documented in this encounter Miscellaneous Notes Miscellaneous - Cielo Bhakta M.D. - 05/23/2013 12:38 PM CDT Ambulatory Patient Summary [address] [address] Visit Information Name: BRIANA LEON [facility] Number: [id number] Current Date: 05/23/2013 12:38:19 Physicians Attending Provider: CIELO GARCIA MD Primary Care Provider: ALBANIA VARMA RN, SENIOR SOFTWARE ENGINEER ANALYTICS Your Medications Here is a list of [...] Time Location Reason Provider 05/24/2013 09:45 [facility] Family Med FU ON HOSP. PAIN MGMT Cielo Villa MD Your Goals/Additional instructions: Source: [facility] POWERCHART Document Id: [id number] Miscellaneous - Cielo Bhakta M.D. - 05/23/2013 12:38 PM CDT Ambulatory Depart Summary [address] [place] [address] Visit Information Name: BRIANA LEON [facility] Number: [id number] Visit Date: 05/23/2013 12:38:17 Attending Provider: CIELO GARCIA MD Primary Care Provider: ALBANIA VARMA RN, SENIOR SOFTWARE ENGINEER ANALYTICS BRIANA LEON has been given the following [...] your provider for clarification. Additional Information: Source: [facility] POWERCHART Document Id: [id number] Miscellaneous - Lian Noonan L.P.N. - 05/23/2013 11:16 AM CDT Adult Manager Review Intake/History Document Has Been Updated Adult Manager Review Intake/History Entered On: 05/23/2013 11:22 CDT Performed [...] Preferred Communication Mode : Verbal Languages : Greek LIAN NOONAN LPN, RT - 05/23/2013 11:16 [...] : Weekly LIAN NOONAN LPN, RT - 05/23/2013 11:16 CDT Recreational Drug Use Grid Drug Use : None ILAN NOONAN LPN, 05/23/2013 11:16 CDT Source: [facility] POWERCHART Document Id: [id number] CDT!3 documented in this encounter Plan of [...] Erythrocytes 3.84 (L) 3.90 - POWERCHART 5.03 [id number] Hemoglobin 11.7 (L) 12.0 - POWERCHART 15.5 [...] MGDL HXeGFR (MDRD) 57 (L) >=60 POWERCHART [id number] Comment: A GFR of <60 mL/min is indicative of chr onic kidney disease. (MDRD calculation valid on patients 18-7 0 years.) eGFR Black/ >60 >=60 [id number] POWERCHART Glucose 74 70 - 139 MGDL POWERCHART Specimen (Source) Anatomical Collection Method Collection Time Re ceived Time Location / / Volume Laterality Blood 05/23/2013 11:58 AM CDT Cielo Turner M.D. LAB BLOOD ADD-ON Performing Organization Address City/State/ZIP Code Phon e Number POWERCHART documented in this encounter Visit Diagnoses Not on filedocumented in this encounter
--- OUTSIDE RECORDS SUMMARY | 2022-05-23 11:33 | XMS_ITS | Encounter Summary ---
:1935 Author Organization [facility] Address [address] [place] [address] Care Team Providers Name Role Phone Unavailable Primary Care Provider Unavailable Encounter Details Date Type Department Care Team Description 12/13/2012 - Hospital Encounter HX [facility] [place] Varma, 01/07/2013 [facility] CYRIL, C.N.P., D.N.P. [address] [place] [phone] Social History Tobacco Use Types Packs/Day Years Used Date Smoking Tobacco: Never Assessed Sex Assigned at Date Recorded Not on file documented as of this encounter Discharge Summaries Bianca Villalobos, P.T. - 04/29/2013 12:00 AM CDT [id number] IMPRESSION/REPORT/PLAN The patient was evaluated and treated [...] BIANCA VILLALOBOS On: 05/05/2013 03:05 PM Source: [facility] MHSDOLBEYNONRADSYS Document Id: [id number] documented in this encounter Medications at Time [...] Villalobos P.T. - 01/07/2013 12:00 AM CDT [id number] CHIEF COMPLAINT/REASON FOR VISIT Patient has reported [...] BIANCA VILLALOBOS On: 01/10/2013 03:33 PM Source: [facility] MHSDOLBEYNONRADSYS Document Id: [id number] Bianca Villalobos P.T. - 12/27/2012 12:00 AM CDT [id number] CHIEF COMPLAINT/REASON FOR VISIT The patient has [...] understanding. Plan is to continue. Bianca Villalobos D.P.T./[facility] DOCID: [110] Electronically Signed By: BIANCA VILLALOBOS On: 12/30/2012 02:31 PM Source: [facility] MHSDOLBEYNONRADSYS Document Id: [id number] Bianca Villalobos P.T. - 12/24/2012 12:00 AM CDT [id number] CHIEF COMPLAINT/REASON FOR VISIT Patient has no [...] is to continue. Bianca Villalobos D.P.T./[facility] DOCID: [id number] Electronically Signed By: BIANCA VILLALOBOS On: 12/27/2012 11:34 AM Source: [facility] MHSDOLBEYNONRADSYS Document Id: [id number] documented in this encounter Consult Notes Bianca Villalobos P.T. - 12/22/2012 12:00 AM CDT [id number] CHIEF COMPLAINT/REASON FOR VISIT Patient presents to [...] 09:23 AM Co-Signed By: ALBANIA VARMA RN, LEGAL SERVICE SPECIALIST On: 12/23/2012 05:17 PM Source: [facility] MHSDOLBEYNONRADSYS Document Id: [id number] Bianca Villalobos P.T. - 12/13/2012 12:00 AM CDT [id number] CHIEF COMPLAINT/REASON FOR VISIT The patient is [...] without exceeding 12 treatment sessions. Bianca Villalobos D.P.T./[facility] cc: [place] Diego, F.N.P. Electronically Signed By: BIANCA VILLALOBOS On: 12/20/2012 05:20 PM Co-Signed By: ALBANIA VARMA RN, LEGAL SERVICE SPECIALIST On: 12/21/2012 03:58 PM Source: [facility] MHSDOLBEYNSHANEKARADSYS Document Id: [id number] documented in this encounter Plan of Treatment Not on filedocumented as of this encounter Visit Diagnoses Not on filedocumented in this encounter
--- OUTSIDE RECORDS SUMMARY | 2022-05-23 11:33 | XMS_ITS | Encounter Summary ---
:1935 Author Organization [facility] Address [address] [place] [address] Care Team Providers Name Role Phone Unavailable Primary Care Provider Unavailable Encounter Details Date Type Department Care Team Description 10/31/2013 Hospital Encounter HX [facility] Mary Varma, CYRIL, C.N.P., D. N.P. [address] [place] [address] (Wo rk) Social History Tobacco Use Types Packs/Day Years Used Date Smoking Tobacco: Never Assessed Sex Assigned at Date Recorded Not on file documented as of this encounter Last Filed Vital Signs Vital Sign Reading Time Taken Comments Blood Pressure 112/60 10/31/2013 11:16 AM PLANT FLOOR AUTOMATION MANAGER Pulse 78 10/31/2013 11:16 AM PLANT FLOOR AUTOMATION MANAGER Temperature - - Respiratory Rate 16 10/31/2013 11:16 AM PLANT FLOOR AUTOMATION MANAGER Oxygen Saturation - - Inhaled Oxygen Concentration - - Weight 73.8 kg (162 lb 11.2 oz) 10/31/2013 11:16 AM PLANT FLOOR AUTOMATION MANAGER Height - - Body Mass Index 29.23 08/25/2013 1:55 PM PLANT FLOOR AUTOMATION MANAGER documented in this encounter Medications at Time [...] APRN, C.N.P. - 10/31/2013 11:12 AM CST [id number] CHIEF COMPLAINT/REASON FOR VISIT Routine general medical [...] Don.N.P./deandre Electronically Signed By: MARY VARMA RN, TRANSFORMATION CONSULTANT On: 11/08/2013 05:18 PM Source: [facility] MHSDOLBEYNONRADSYS Document Id: [id number] T FLOOR AUTOMATION MANAGER documented in this encounter Miscellaneous Notes Miscellaneous - Mary Varma APRN, C.N.P. - 10/31/2013 12:05 PM CST General Message Document Contains Addenda Addendum by LINNETTE RICHEY on 31 October 2013 13:08:20 PLANT FLOOR AUTOMATION MANAGER From: LINNETTE RICHEY To: MARY VARMA RN, TRANSFORMATION CONSULTANT; Sent: 10/31/2013 13:08:20 PLANT FLOOR AUTOMATION MANAGER Subject: RE: General Message VM left for patient to contact registration to schedule appt. with Medicare Nurse. From: MARY VARMA RN, CNP To: LINNETTE RICHEY; Sent: 10/31/2013 12:05:52 PLANT FLOOR AUTOMATION MANAGER Subject: General Message appiontment with Kathryn Boothe (medicare person) Thanks Source: [facility] POWERCHART Document Id: [id number] Miscellaneous - Mary Varma APRN, C.N.P. - 10/31/2013 12:04 PM CST Ambulatory Patient Summary [id number] [place] [address] Visit Information Name: KATHRYN LEON [facility] Number: [id number] Current Date: 10/31/2013 12:04:46 Physicians Attending Provider: MARY VARMA RN, TRANSFORMATION CONSULTANT Primary Care Provider: MARY VARMA RN, TRANSFORMATION CONSULTANT KATHRYN LEON has been given the following [...] 1 Tablet(s), Oral, two times a day [facility] [phone] fluticasone nasal (Flonase 0.05 mg/inh nasal spray) 2 Sparkill(s), Nostrils(Both), once a day gabapentin (gabapentin 300 [...] appointment detail needed. Your Goals/Additional instructions: Source: [facility] POWERCHART Document Id: [id number] T FLOOR AUTOMATION MANAGER Miscellaneous - Mary Varma APRN, C.N.P. - 10/31/2013 12:04 PM CST Ambulatory Depart Summary [address] [address] Visit Information Name: KATHRYN LEON [facility] Number: [id number] Visit Date: 10/31/2013 12:04:43 Attending Provider: MARY VARMA RN, TRANSFORMATION CONSULTANT Primary Care Provider: MARY VARMA RN, TRANSFORMATION CONSULTANT KATHRYN LEON has been given the following [...] 1 Tablet(s), Oral, two times a day [facility] [phone] fluticasone nasal (Flonase 0.05 mg/inh nasal spray) 2 Sparkill(s), Nostrils(Both), once a day gabapentin (gabapentin 300 [...] in case of emergency. Additional Information: Source: [facility] POWERCHART Document Id: [id number] T FLOOR AUTOMATION MANAGER Miscellaneous - Sujatha Batista L.PDannN. - 10/31/2013 11:16 AM CST Adult Chipper Intake/History Adult Chipper Intake/History Entered On: 10/31/2013 11:19 PLANT FLOOR AUTOMATION MANAGER Performed On: 10/31/2013 11:16 PLANT FLOOR AUTOMATION MANAGER by SUJATHA BATISTA LPN Intake Chief [...] kg SUJATHA BATISTA LPN - 10/31/2013 11:16 PLANT FLOOR AUTOMATION MANAGER General Info Information Given By : Patient Preferred Communication Mode : Verbal Languages : Chinese SUJATHA BATISTA MAILROOM MANAGER - 10/31/2013 11:16 PLANT FLOOR AUTOMATION MANAGER Subjective Pain Symptoms : Yes SUJATHA BATISTA LPN - 10/31/2013 11:16 PLANT FLOOR AUTOMATION MANAGER Pain Pain Assessment Grid Pain 1 Location : Other: ribs Laterality : Left Intensity : 4 SUJATHA BATISTA LPN - 10/31/2013 11:16 PLANT FLOOR AUTOMATION MANAGER Dependent Habits Tobacco Use/Currently Using : No Exposure to Tobacco Smoke : Care provider denies smoking in home Smoking Status : Never smoker SUJATHA BATISTA LPN - 10/31/2013 11:16 PLANT FLOOR AUTOMATION MANAGER Tobacco Use Grid Last Use : never SUJATHA BATISTA LPN - 10/31/2013 11:16 PLANT FLOOR AUTOMATION MANAGER Caffeine Use Grid Caffeine Use : Current Type : Coffee Frequency : Weekly SUJATHA BATISTA LPN - 10/31/2013 11:16 PLANT FLOOR AUTOMATION MANAGER Recreational Drug Use Grid Drug Use : None SUJATHA BATISTA LPN - 10/31/2013 11:16 PLANT FLOOR AUTOMATION MANAGER Source: [facility] POWERCHART Document Id: [id number] PLANT FLOOR AUTOMATION MANAGER!42 T FLOOR AUTOMATION MANAGER Miscellaneous - Conversion, Historical Provider Ser - 10/26/2013 12:49 PM PLANT FLOOR AUTOMATION MANAGER Med Management Document Contains Addenda Addendum by NIMISHA RIOJAS V on 27 October 2013 14:12:01 PLANT FLOOR AUTOMATION MANAGER called to pharmacy Addendum by MARY VARMA RN, TRANSFORMATION CONSULTANT on 27 October 2013 14:05:49 PLANT FLOOR AUTOMATION MANAGER From: MARY VARMA RN, TRANSFORMATION CONSULTANT Sent: 10/27/2013 14:05:47 PLANT FLOOR AUTOMATION MANAGER Subject: RE:Med Management Approved Order:fexofenadine-pseudoephedrine (Rochelle-D 12 Hour 60 mg-120 mg oral tablet, extended release) 1 tab(s) PO 2xDay Qty: 180 tab(s) Refills: 3 Substitutions Allowed Don't Print - [facility] (Rx[facility] [phone] Signed by MARY VARMA RN, CNP 10/27/2013 14:05:44 From: NIMISHA RIOJAS V To: MARY VARMA RN, IVANA; NIMISHA RIOJAS V; Sent: 10/26/2013 12:49:33 PLANT FLOOR AUTOMATION MANAGER Subject: Med Management On hold pending signature Order:fexofenadine-pseudoephedrine (Rochelle-D 12 Hour 60 mg-120 mg oral tablet, extended release) 1 tab(s) PO 2xDay Qty: 180 tab(s) Refills: 3 Substitutions Allowed Don't Print - called to pharmacy (Rx) [facility] [phone] [facility] Document Id: [id number] documented in this encounter Plan of Treatment Not on filedocumented as of this encounter Procedures Procedure Name Priority Date/Time Associated Diagnosis Comme nts ELECTROPHORESIS, Routine 10/31/2013 2:39 PM Resul ts for this PROTEIN, S PLANT FLOOR AUTOMATION MANAGER procedure are i n the results section. LIPID PANEL, S Routine 10/31/2013 12:29 PM Result s for this PLANT FLOOR AUTOMATION MANAGER procedure are i n the results section. VITAMIN B12 AND Routine 10/31/2013 12:29 PM Resul ts for this FOLATE, S PLANT FLOOR AUTOMATION MANAGER procedure are i n the results section. 25-HYDROXYVITAMIN Routine 10/31/2013 12:29 PM Res ults for this D2 AND D3, S PLANT FLOOR AUTOMATION MANAGER procedure are i n the results section. MAGNESIUM, S Routine 10/31/2013 12:29 PM Results for this PLANT FLOOR AUTOMATION MANAGER procedure are i n the results section. documented in this encounter Results Electrophoresis Protein (10/31/2013 2:39 PM PLANT FLOOR AUTOMATION MANAGER) athologist Signature Total Protein, 7.3 6.3 - 7.9 POWERCHART S GMDL Comment: Test Performed by: [place] [address] Proposal Coordinator: Scot ybarra III, M.D. Albumin, S 3.5 [...] o n serum electrophoresis. Test Performed by: [address] [address] Proposal Coordinator: Scot ybarra III, M.D. Specimen (Source) Anatomical Collection Method Collection Time Re ceived Time Location / / Volume Laterality Blood 10/31/2013 2:39 PM PLANT FLOOR AUTOMATION MANAGER Mary Varma APRN C.N.P., D.N.P. LAB BLOOD ADD-ON Performing Organization Address City/[facility] Code Phon e Number POWERCHART Magnesium (10/31/2013 12:29 PM PLANT FLOOR AUTOMATION MANAGER) athologist [facility] Magnesium, S 2.0 1.7 - 2.1 POWERCHART MGDL Specimen (Source) Anatomical Collection Method Collection Time Re ceived Time Location / / Volume Laterality Blood 10/31/2013 12:29 PM PLANT FLOOR AUTOMATION MANAGER Mary Varma APRN, C.N.P., D.N.P. LAB BLOOD ADD-ON Performing Organization Address City/[facility]/ZIP Code Phon e Number POWERCHART Vitamin B12 Level and Folate (10/31/2013 12:29 PM PLANT FLOOR AUTOMATION MANAGER) athologist Signature Vitamin B12 [phone] POWERCHART Assay, S NGL Folate, S >20.0 >=4.0 MCGL POWERCHART Comment: Test Performed by: [facility] [address] [address] Proposal Coordinator: Scot ybarra III, M.D. Specimen (Source) Anatomical Collection Method Collection Time Re ceived Time Location / / Volume Laterality Blood 10/31/2013 12:29 PM PLANT FLOOR AUTOMATION MANAGER Mary Varma APRN C.N.P., D.N.P. LAB BLOOD NON ADD-O N Performing Organization Address City/[facility] Code Phon e Number POWERCHART (ABNORMAL) Lipid Panel (10/31/2013 12:29 PM PLANT FLOOR AUTOMATION MANAGER) athologist Signature Cholesterol, 184 0 - 200 [...] / Volume Laterality Blood 10/31/2013 12:29 PM PLANT FLOOR AUTOMATION MANAGER Mary Varma APRN, C.N.P., D.N.P. LAB BLOOD ADD-ON Performing Organization Address [facility] Code Phon e Number POWERCHART 25-Hydroxyvitamin D2 and D3 (10/31/2013 12:29 PM PLANT FLOOR AUTOMATION MANAGER) athologist Signature HX25 HYDROXY D2 <4.0 NGML POWERCHART 25-Hydroxy D3 49 NGML POWERCHART Vitamin D, S 49 NGML POWERCHART Comment: -- REFERENCE VALUE -- 25-HYDROXY D TOTAL (D2+D3) Optimum level s in the healthy population are 20-50, patients with bone disease may benefit from higher levels within this r mega. Test Performed by: [facility] [address] [place] [address] Proposal Coordinator: Scot ybarra III, M.D. Specimen (Source) Anatomical Collection Method Collection Time Re ceived Time Location / / Volume Laterality Blood 10/31/2013 12:29 PM PLANT FLOOR AUTOMATION MANAGER Mary Varma APRN C.N.P., D.N.P. LAB BLOOD ADD-ON Performing Organization Address City/State/ZIP Code Phon e Number POWERCHART documented in this encounter Visit Diagnoses Not on filedocumented in this encounter
--- OUTSIDE RECORDS SUMMARY | 2022-05-23 11:33 | XMS_ITS | Encounter Summary ---
:1935 Author Organization [facility] Address [address] [place] [address] Care Team Providers Name Role Phone Unavailable Primary Care Provider Unavailable Encounter Details Date Type Department Care Team Description 05/26/2013 - Hospital Encounter HX [facility] Daiys huff, 10/13/2013 EARLINE Huff M.D. [id number] [place] [id number] Social History Tobacco Use Types Packs/Day Years Used Date Smoking Tobacco: Never Assessed Sex Assigned at Date Recorded Not on file documented as of this encounter Discharge Summaries Faviola Villalobos, P.T. - 06/20/2013 12:00 AM CDT [id number] DISCHARGE SUMMARY Patient was seen for a total of 3 treatment sessions. Her plan of care included patient education, home exercise program and CEMENT TILE MAKER maneuvers. Patient achieved all goals was discharged due to symptom resolution. Faviola Villalobos D.P.T./tommy Electronically Signed By: FAVIOLA VILLALOBOS On: 10/03/2013 08:43 AM [facility] MHSDOLBEYNONRADSYS Document Id: [id number] NAILER documented in this encounter Medications at Time [...] FAVIOLA VILLALOBOS On: 06/24/2013 01:49 PM Source: [employer] Document Id: [id number] Faviola Villalobos P.T. - 06/22/2013 9:15 AM [...] FAVIOLA VILLALOBOS On: 06/22/2013 09:17 AM Source: [employer] Document Id: [id number] Faviola Villalobos P.T. - 06/20/2013 12:00 AM CDT [id number] PATIENT'S CHIEF COMPLAINT Patient reports that her [...] PHYSICAL EXAMINATION Today we did reassess the Hallpike-[place] test. Patient did not demonstrate a nystagmus, however, she did feel symptom reproduction with the right posterior and horizontal canal, some mild symptoms on theleft posterior as well. Again no nystagmus was noted due to a positive Hallpike [place] test on the right posterior canal the last time we will go ahead and repeat that maneuver today as well as initiate ahome exercise program. IMPRESSION/REPORT/PLAN We performed CEMENT TILE MAKER maneuvers to the right posterior canal times 1 repetition. Patient was symptomatic during procedure. We then initiated Uribe-Daroff exercises for home exercise program for right posterior canal. Patient will initiate these performing them at 5 repetitions 3 time a day. Patient was given [facility] written handout with illustrations to perform home [...] FAVIOLA VILLALOBOS On: 06/23/2013 04:35 PM Source: [facility] MHSDOLBEYNONRADSYS Document Id: [id number] Faviola Villalobos P.T. - 06/16/2013 8:52 AM CDT Talked with patient today and she is feeling drastically better. She will see how the day goes and call if she needs further care. Electronically Signed By: FAVIOLA VILLALOBOS On: 06/16/2013 08:53 AM Source: [facility] [employer] Document Id: [id number] Faviola Villalobos P.T. - 06/15/2013 12:00 AM CDT [id number] CHIEF COMPLAINT/REASON FOR VISIT Patient comes in [...] with symptom reproduction. IMPRESSION/REPORT/PLAN We did perform CEMENT TILE MAKER maneuvers for the right posterior canal times [...] 07:48 AM Co-Signed By: MARY VARMA RN, CIRCULATION MAN On: 06/20/2013 06:18 AM Source: [facility] MHSDOLBEYNONRADSYS Document Id: [id number] Faviola Villalobos P.T. - 05/27/2013 2:31 PM CDT Talked with patient via telephone. She reports she is feeling much better today. She still is a little woozy but she feels that is from the pain medication. Overall patient is doing well. She will call with any further problems. Electronically Signed By: FAVIOLA VILLALOBOS On: 05/27/2013 02:33 PM Source: [facility] POWERCHART Document Id: [id number] documented in this encounter Consult Notes Faviola Villalobos P.T. - 05/26/2013 12:00 AM CDT [id number] REFERRAL SOURCE/ORDER Patient is referred physical therapy [...] of the content. IMPRESSION/REPORT/PLAN We did perform CEMENT TILE MAKER maneuvers. We tried the right posterior canal [...] if needed with Uribe-Daroff exercises,vestibular rehab and CEMENT TILE MAKER maneuvers. PLAN Plan is to see patient for up to 6 treatment sessions as needed over the next month for resolution of symptoms. Faviola Villalobos D.P.T./tommy cc: Anisha Villa M.D. Electronically Signed By: FAVIOLA VILLALOBOS On: 05/27/2013 02:38 PM Modified by and Electronically Signed by: FAVIOLA VILLALOBOS On: 05/27/2013 02:38 PM Co-Signed By: ANISHA GARCIA MD On: 05/29/2013 01:16 PM Source: [facility] MHSDOLBEYNONRADSYS Document Id: [id number] documented in this encounter Miscellaneous Notes Miscellaneous - Conversion, Historical Provider Ser - 09/29/2013 3:14 PM HAND NAILER Med Management Document Contains Addenda Addendum by NIMISHA RIOJAS V on 30 September 2013 10:41:05 HAND NAILER pt updated Addendum by MARY VARMA RN, IVANA on 30 September 2013 10:26:10 HAND NAILER From: MARY VARMA RN, IVANA To: EARLE ZAMORANO III, MD; Sent: 09/30/2013 10:26:10 HAND NAILER Subject: RE:FW: Med Management Approved Order:traMADol (traMADol 50 mg oral tablet) 2 tab(s) PO q6hr may take 1-2 tabs every 4-6hrs Qty: 60 tab(s) Refills: 0 Substitutions Allowed PRN Pain Route To Pharmacy - [facility] Signed by MARY VARMA RN, IVANA 09/30/2013 10:26:03 Addendum by NIMISHA RIOJAS V on 30 September 2013 09:40:46 HAND NAILER From: NIMISHA RIOJAS V To: MARY VARMA RN, IVANA; Sent: 09/30/2013 09:40:46 HAND NAILER Subject: FW: Med Management Dr Zamorano didn't address-please advise Addendum by EARLE ZAMORANO III, MD on 29 September 2013 18:14:13 HAND NAILER From: EARLE ZAMORANO III, MD To: MARY VARMA RN, CIRCULATION MAN; Sent: 09/29/2013 18:14:13 HAND NAILER Subject: FW: Med Management From: NIMISHA RIOJAS V To: EARLE ZAMORANO III, MD; NIMISHA RIOJAS V; Sent: 09/29/2013 15:14:05 HAND NAILER Subject: Med Management On hold pending signature [...] leaving on vacation tomorrow @ 10:30am Source: [employer] Document Id: [id number] Miscellaneous - Madhavi Perdomo R.N. - 08/31/2013 11:34 AM CST Med Management Document Contains Addenda Addendum by MADHAVI PERDOMO RN on 31 August 2013 13:50:03 HAND NAILER noted Addendum by MARY VARMA RN, CIRCULATION MAN on 31 August 2013 12:54:45 HAND NAILER From: MARY VARMA RN, CIRCULATION MAN To: MADHAVI PERDOMO RN; Sent: 08/31/2013 12:54:44 HAND NAILER Subject: RE:Med Management Approved Order:traMADol (traMADol 50 mg oral tablet) 2 tab(s) PO q6hr may take 1-2 tabs every 4-6hrs Qty: 60 tab(s) Refills: 0 Substitutions Allowed PRN Pain Route To Pharmacy - [facility] Signed by MARY VARMA RN, CNP 08/31/2013 12:54:41 From: MADHAVI PERDOMO RN To: MARY VARMA RN, IVANA; MADHAVI PERDOMO RN; Sent: 08/31/2013 11:34:25 HAND NAILER Subject: Med Management On hold pending signature Order:traMADol (traMADol 50 mg oral tablet) 2 tab(s) PO q6hr may take 1-2 tabs every 4-6hrs Qty: 60 tab(s) Refills: 0 Substitutions Allowed PRN Pain Route To Pharmacy - [facility] Documented Discontinue:traMADol (traMADol 50 mg oral tablet) Signed by MADHAVI PERDOMO RN 08/31/2013 11:30:54 Source: [facility] POWERCHART Document Id: [id number] Electronically signed by Dustin [facility] [id number] at 02/11/2017 7:42 PM CDT Miscellaneous - Faviola Garcia - 08/29/2013 8:38 AM CST General Message Document Contains Addenda Addendum by FAVIOLA GARCIA RN on 29 August 2013 16:07:08 HAND NAILER From: FAVIOLA GARCIA RN To: MARY VARMA RN, IVANA; Sent: 08/29/2013 16:07:08 HAND NAILER Subject: RE: General Message Kathryn has been [...] IVANA on 29 August 2013 15:58:38 HAND NAILER From: MARY VARMA RN, CIRCULATION MAN To: FAVIOLA GARCIA RN; Sent: 08/29/2013 15:58:38 HAND NAILER Subject: RE: General Message will have her try some of her pain meds that she has- if she is short of breath, she needs to be seen. if no improvement with meds then needs to be seen -thanks. From: FAVIOLA GARCIA RN To: MARY VARMA RN, CIRCULATION MAN; Sent: 08/29/2013 08:38:24 HAND NAILER Subject: General Message C/o pain where had [...] your advise what she should do. Source: [facility] POWERCHART Document Id: [id number] Electronically signed by [facility] [id number] at 02/11/2017 7:42 PM CDT documented in this encounter Plan of Treatment Not on filedocumented as of this encounter Visit Diagnoses Not on filedocumented in this encounter
--- OUTSIDE RECORDS SUMMARY | 2022-05-23 11:33 | XMS_ITS | Encounter Summary ---
:1935 Author Organization [facility] Address [address] [place] [address] Care Team Providers Name Role Phone Unavailable Primary Care Provider Unavailable Encounter Details Date Type Department Care Team Description 03/14/2013 Hospital Encounter HX [facility] [place] Varam, CYRIL, C.N.P., D. N.P. [address] [place] [address] (Wo rk) Social History Tobacco [...] APRN, C.N.P. - 03/14/2013 3:16 PM CDT [id number] CHIEF COMPLAINT/REASON FOR VISIT Cat scratch. HISTORY [...] Quiroga/joby Electronically Signed By: [place] VARMA RN, INTERSTATE BUS DISPATCHER On: 03/15/2013 05:57 PM Source: [facility] MHSDOLBEYNONRADSYS Document Id: [id number] documented in this encounter Miscellaneous Notes Miscellaneous - [place] Varma APRN, C.N.P. - 03/14/2013 3:48 PM CDT Ambulatory Patient Summary [facility] [address] [place] [address] Visit Information Name: BRIANA LEON [facility] Number: [id number] Current Date: 03/14/2013 15:48:18 Physicians Attending Provider: [place] VARMA RN, INTERSTATE BUS DISPATCHER Primary Care Provider: [place] VARMA RN, INTERSTATE BUS DISPATCHER Your Medications Here is a list of [...] No Appointments found Your Goals/Additional instructions: Source: [facility] POWERCHART Document Id: [id number] Miscellaneous - [place] Varma APRN, C.N.P. - 03/14/2013 3:48 PM CDT Ambulatory Depart Summary [id number] [place] [address] Visit Information Name: BRIANA LEONERINE [facility] Number: [id number] Visit Date: 03/14/2013 15:48:16 Attending Provider: [place] VARMA RN, INTERSTATE BUS DISPATCHER Primary Care Provider: [place] VARMA RN, INTERSTATE BUS DISPATCHER BRIANA LEON has been given the following [...] your provider for clarification. Additional Information: Source: [facility] POWERCHART Document Id: [id number] Miscellgalilea - Lian Noonan L.P.N. - 03/14/2013 3:16 PM CDT Adult Motorcycle Maker Intake/History Adult Motorcycle Maker Intake/History Entered On: 03/14/2013 15:20 CDT Performed [...] Information Given By : Patient Languages : Romanian LIAN NOONAN LPN, RT - 03/14/2013 15:16 [...] LIAN NOONAN LPN, 03/14/2013 15:16 CDT Source: [facility] [employer]ofileCHART Document Id: [id number]!40 documented in this encounter Plan of Treatment Not on filedocumented as of this encounter Visit Diagnoses Not on filedocumented in this encounter
--- OUTSIDE RECORDS SUMMARY | 2022-05-23 11:33 | XMS_ITS | Encounter Summary ---
:1935 Author Organization [facility] Address [address] [place] [address] Care Team Providers Name Role Phone Unavailable Primary Care Provider Unavailable Encounter Details Date Type Department Care Team Description 05/15/2013 Hospital Encounter HX [facility] ED Cristina Villagomez M.D. [address] [place] [address] 021 (Wo rk) Social History Tobacco Use [...] 05/15/2013 8:38 PM CDT ED Discharge Instructions [facility] [address] [place] [address] Name: KATHRYN LEON Date of : 1935 12:00 AM Visit Date: 05/15/2013 5:48 PM [facility] Number: [id number] Address: [address] [place] [phone] Primary Care Provider: ALBANIA VARMA RN, TOLL TRANSMISSION WORKER IMPORTANT: [facility] in [place] would like to thank you for allowing [...] Republican/Relationship Date Time Provider Signature Date Time Medication [...] a ride home with a responsible republican. I KATHRYN LEON , or responsible republican have received this information and my questions have been answered. I have discussed any challenges I see with this plan with the nurse or physician. Patient Signature or Responsible Republican/Relationship Date Time Provider Signature Date Time Source: Kartela Document Id: [id number] Faviola Wilkinson R.N. - 05/15/2013 8:38 PM CDT ED Depart Summary [facility] Emergency Department Clinical Discharge Summary PERSON INFORMATION Name KATHRYN LEON Age 78 Years 1935 12:00 AM Sex Female Language Tajik PCP ALBANIA VARMA RN, TOLL TRANSMISSION WORKER Marital Status Visit Id Visit Reason Hip pain-swelling; FALL-LT HIP PX Specialty Enc Type Emergency Med Service Emergency Medicine Referred by Track Group [facility] ED Discharge 05/15/2013 8:38 PM Tracking Id [id number] Checkout 05/15/2013 8:38 PM Checkin 05/15/2013 5:48 PM Acuity Dispo Type Disch/Trans to Critical Access Hospital Arrival 05/15/2013 5:48 PM Reg Status LOS 000 02:50 Address: [address] [place] [phone] Comment: PROVIDER INFORMATION Provider Role Provider Contact Time AZAR VILLAGOMEZ MD ED Provider 05/15/13 17:56 KATHRYN ACEVES HEAD FIELD HOCKEY COACH Nurse 05/15/13 18:29 FAVIOLA WILKINSON HEAD FIELD HOCKEY COACH Nurse 05/15/13 19:26 DIAGNOSIS Comment: PATIENT EDUCATION INFORMATION Instructions: Follow up: Source: [facility] POWERCHART Document Id: [id number] documented in this encounter Medications at Time [...] Illness Kathryn was in a motel in [facility], on May 12. She slipped on a [...] directly to the hospital on return to [facility]. She is screaming out in pain with [...] NOS (365.9): Resolved. Surgical history: . Mammogram (933623262) in 2011 at 77 Years. Diagnostic colonoscopy (292826999) in 2010 at 76 Years. Comments: 03/25/2011 08:49 - SAGRARIO NOLAND MD Sigmoid diverticulosis--not inflamed. Laminectomy approach to lumbar spine (831111425) in 2008 at 74 Years. Extracapsular cataract removal with insertion of intraocular lens prosthesis (1 stage procedure), manual or mechanical technique (eg, irrigation and aspiration or phacoemulsification) (97762) in 2006 at 72 Years. Comments: 10/25/2010 20:26 - PATTI ALMENDAREZ DEMOGRAPHIC ANALYST left Repair of cystocele (542827891) in 1994 at 60 Years. Reduction mammaplasty (48230) in 1981 at 47 Years. Hysterectomy (824683223) in 1966 at 31 Years. Comments: 03/25/2011 08:51 - SAGRARIO NOLAND MD Vaginal Hemorrhoidectomy, internal and external, single column/group; (63109) in 1959 at 24 Years. Family history: . Kidney Brother Glaucoma Father Down syndrome Brother Celiac disease Brother Social history: Drug use: Denies, Occupation: Retired, Family/social situation: . Problem list: . 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 OrdersFENTANYL 50 mcg IV now. Results review:Lab results : Lab View. 05/15/2013 18:50 CDT Hgb 12.6 g/dL Hct 37.6 % WBC 5.3 x10(9)/L RBC 4.12 x10(12)/L MCV 91.3 fL RDW 12.2 % Platelet 90 x10(9)/L LOW Neutro % 44.9 % Lymph % 37.6 % [place] % 12.0 % Eos % 5.1 % HI Baso % 0.4 % Neutro Absolute 2.39 10(9)/L Lymph Absolute 2.00 x10(9)/L [place] Absolute 0.64 x10(9)/L Eos Absolute 0.27 x10(9)/L [...] VILLAGOMEZ MD On: 05/15/2013 09:08 PM Source: [facility] POWERCHART Document Id: [id number]} Kathryn Aceves RChelsey - 05/15/2013 6:53 PM CDT ED Pain Assessment ED Pain Assessment Entered On: 05/15/2013 18:53 CDT Performed On: 05/15/2013 18:53 CDT by KATHRYN ACEVES RN Pain Assessment Pain Symptoms : Yes KATHRYN ACEVES RN - 05/15/2013 18:53 CDT Pain Pain Assessment Grid Pain 1 Location : Hip Laterality : Left Intensity : 3 KATHRYN ACEVES RN - 05/15/2013 18:53 CDT Source: [facility]ela Document Id: [id number] CDT!9 Jakob Maradiaga R.N. - 05/15/2013 6:45 PM CDT ED Treatments and Procedures ED Treatments and Procedures Entered On: 05/15/2013 19:00 CDT Performed On: 05/15/2013 18:45 CDT by JAKOB MARADIAGA RN Urinary Catheter Urinary Catheter Activity Type : Insert Urinary Catheter Insertion Site : Urethral Urinary Catheter Size : 16 [place] Citizen Urinary Catheter Type : Indwelling/Continuous Date/Time Catheter Insertion : 05/15/2013 18:45 CDT Urinary Catheter Balloon Inflation : 10 mL sterile water Urinary Catheter Secured : Leg strap Urinary Catheter Drainage System : Dependent drainage bag Urinary Catheter Procedure Response : Expected Urinary Catheter Procedure Tolerance : Good JAKOB MARADIAGA RN - 05/15/2013 19:00 CDT Source: Kartela Document Id: [id number] CDT!12 Kathryn Aceves R.N. - 05/15/2013 6:28 PM CDT ED Nurse Reassess ED Nurse Reassess Entered On: 05/15/2013 18:28 CDT Performed On: 05/15/2013 18:28 CDT by KATHRYN ACEVES RN Pain Assessment Pain Symptoms : Yes Pain Medication Requested : Yes KATHRYN ACEVES RN - 05/15/2013 18:28 CDT Source: Kartela Document Id: [id number] CDT!4 Kathryn Aceves R.N. - 05/15/2013 6:25 [...] Classification: Nursing ;Code: 477.9 ; Contributor System: [employer] ; Last Updated: 01/21/2011 10:04 CDT ; [...] Nursing ; Code: 714.0 ; Contributor System: Tap2printChart ; Last Updated: 10/25/2010 20:18 FAMILY MEDICINE PHYSICIAN ASSISTANT ; Life Cycle Date: 10/25/2010 ; Life Cycle Status: Active ; Responsible Provider: PATTI ALMENDAREZ LPN; Vocabulary: ICD-9-CM Atrophic vaginitis (ICD-9-CM :627.3 ) Name of Problem: Atrophic vaginitis ; Onset Date: 07/27/2012 ;Recorder: ALBANIA VARMA RN, CNP; Confirmation: Confirmed ; Classification: Medical ; Code: 627.3 ; Last Updated: 07/27/2012 11:32 FAMILY MEDICINE PHYSICIAN ASSISTANT ; Life Cycle Status: Active ; Responsible Provider: ALBANIA VARMA CNP; Vocabulary: ICD-9-CM Bursitis Hip/Trochanertic (ICD-9-CM :726.5 ) Name of Problem: Bursitis Hip/Trochanertic ; Onset Date: 10/20/2011 ; Recorder: ALBANIA VARMA RN, CNP; Confirmation: Confirmed ; Classification: Medical ; Code: 726.5 ; Last Updated: 10/20/2011 9:54 FAMILY MEDICINE PHYSICIAN ASSISTANT ; Life Cycle Status: Active ; Responsible [...] ContributorSystem: PowerChart ; Last Updated: 10/25/2010 20:20 FAMILY MEDICINE PHYSICIAN ASSISTANT ; Life Cycle Date: 10/25/2010 ; Life Cycle Status: Active ; Responsible Provider: PATTI ALMENDAREZ LPN; Vocabulary: ICD-9-CM Diverticulitis of large intestine (ICD-9-CM :562.11 ) Name of Problem: Diverticulitis of large intestine ; Onset Date: 10/28/2010 ; Recorder: ALBANIA VARMA RN, CNP; Confirmation: Confirmed ; Classification: Medical ; Code: 562.11 ; Last Updated: 10/28/2010 16:30 FAMILY MEDICINE PHYSICIAN ASSISTANT ; Life Cycle Status: Active ; Respo nsible Provider: ALBANIA VARMA RN, CNP; Vocabulary: ICD-9-CM Eye disorder (ICD-9-CM :379.8 ) Name of Problem: Eye disorder ; Recorder: TAMMY ACEVES MD; Confirmation: Confirmed ; Classification: Medical ; Code: 379.8 ; Contributor System: [employer] ; LastUpdated: 01/05/2012 19:00 CDT ; Life Cycle Date: 01/05/2012 ; Life Cycle Status: Active ; Responsible Provider: TAMMY ACEVES MD; Vocabulary: ICD-9-CM ; Comments: 01/21/2012 9:37 - MATTHEW BORDEN DEMOGRAPHIC ANALYST date unknown Glaucoma (ICD-9-CM :365.44 ) Name of Problem: Glaucoma ; Onset Date: 1986 ; Recorder: PATTI ALMENDAREZ LPN; Confirmation: Confirmed ; Classification: Nursing ; Code: 365.44 ; Contributor System: Tap2[employer]Chart ; Last Updated: 01/21/2011 10:05 CDT ; Life Cycle Date: 10/25/2010 ; Life Cycle Status: Active ; Responsible Provider: PATTI ALMENDAREZ LPN; Vocabulary: ICD-9-CM ; Comments: 12/31/2010 12:11 - PATTI ALMENDAREZ DEMOGRAPHIC ANALYST date unknown Glaucoma (SNOMED CT :02606427 ) Name of Problem: Glaucoma ; Recorder: TAMMY ACEVES MD; Confirmation: Confirmed ; Classification: Medical ; Code: 73668043 ; Contributor System: [employer]Chart ; Last Updated: 01/05/2012 18:52 CDT ; Life Cycle Date: 01/05/2012 ; Life Cycle Status: Active ; ResponsibleProvider: TAMMY ACEVES MD; Vocabulary: SNOMED CT ; Comments: 01/21/2012 9:37 - MATTHEW BORDEN DEMOGRAPHIC ANALYST date unknown 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 (ICD-9-CM :722.10 ) Name of Problem: 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 ; Recorder: ALBANIA VARMA RN, TOLL TRANSMISSION WORKER; Confirmation: Confirmed ; Classification: Medical ; Code: 722.10 ; Contributor System: PowerChart ; Last Updated: 11/04/2010 9:49 FAMILY MEDICINE PHYSICIAN ASSISTANT ; Life Cycle Date: 11/04/2010 ; Life Cycle Status: Active ; Responsible Provider: ALBANIA VARMA RN, TOLL TRANSMISSION WORKER; Vocabulary: ICD-9-CM ; Comments: 12/31/201012:11 - PATTI ALMENDAREZ DEMOGRAPHIC ANALYST date unknown Osteopenia (ICD-9-CM :733.90 ) Name of Problem: Osteopenia ; Onset Date: 02/26/1987 ; Recorder: PATTI ALMENDAREZ LPN; Confirmation: Confirmed ; Classification: Nursing ; Code: 733.90 ; Contributor System: PowerChart ; Last Updated: 10/25/2010 20:19 FAMILY MEDICINE PHYSICIAN ASSISTANT ; Life Cycle Date: 10/25/2010 ; Life Cycle Status: Active ; Responsible Provider: PATTI ALMENDAREZ LPN; Vocabulary: ICD-9-CM Diagnoses(Active) Hip pain-swelling Date: 05/15/2013 ; Diagnosis Type: Reason For Visit ; Confirmation: Complaint of ;Clinical Dx: Hip pain-swelling ; Classification: Medical ; Clinical Service: Emergency medicine ; Code: PNED ; Probability: 0 ; Diagnosis Code: [id number] Triage Chief Complaint Description : see triage note Mode of Arrival ED : Private vehicle Track : Trauma Other Languages : Tajik KATHRYN ACEVES RN - 05/15/2013 18:25 CDT [...] ACEVES RN - 05/15/2013 18:25 CDT Source: [facility] POWERCHART Document Id: [id number] CDT!55 Kathryn Aceves R.N. - 05/15/2013 6:07 [...] Classification: Nursing ;Code: 477.9 ; Contributor System: [employer] ; Last Updated: 01/21/2011 10:04 CDT ; [...] Nursing ; Code: 714.0 ; Contributor System: Tap2printChart ; Last Updated: 10/25/2010 20:18 FAMILY MEDICINE PHYSICIAN ASSISTANT ; Life Cycle Date: 10/25/2010 ; Life Cycle Status: Active ; Responsible Provider: PATTI ALMENDAREZ LPN; Vocabulary: ICD-9-CM Atrophic vaginitis (ICD-9-CM :627.3 ) Name of Problem: Atrophic vaginitis ; Onset Date: 07/27/2012 ;Recorder: ALBANIA VARMA RN, TOLL TRANSMISSION WORKER; Confirmation: Confirmed ; Classification: Medical ; Code: 627.3 ; Last Updated: 07/27/2012 11:32 FAMILY MEDICINE PHYSICIAN ASSISTANT ; Life Cycle Status: Active ; Responsible Provider: ALBANIA VARMA CNP; Vocabulary: ICD-9-CM Bursitis Hip/Trochanertic (ICD-9-CM :726.5 ) Name of Problem: Bursitis Hip/Trochanertic ; Onset Date: 10/20/2011 ; Recorder: ALBANIA VARMA RN, CNP; Confirmation: Confirmed ; Classification: Medical ; Code: 726.5 ; Last Updated: 10/20/2011 9:54 FAMILY MEDICINE PHYSICIAN ASSISTANT ; Life Cycle Status: Active ; Responsible Provider: ALBANIA VARMA RN, CNP; Vocabulary: ICD-9-CM Cataract NOS (ICD-9-CM :366.9 ) Name of Problem: Cataract NOS ; Onset Date: 1991 ; Recorder: PATTI ALMENDAREZ LPN; Confirmation: Confirmed ; Classification: Nursing ; Code: 366.9 ; Contributor System: [employer] ; Last Updated: 01/21/2011 10:04 CDT ; Life Cycle Date: 10/25/2010 ; Life Cycle Status: Active ; Responsible Provider: PATTI ALMENDAREZ LPN; Vocabulary: ICD-9-CM ; Comments: 12/31/2010 12:11 - PATTI ALMENDAREZ LPN date unknown Celiac Disease (ICD-9-CM :579.0 ) Name of Problem: Celiac Disease ; Onset Date: 02/26/2007 ; Recorder: PATTI ALMENDAREZ LPN; Confirmation: Confirmed ; Classification: Nursing ; Code: 579.0 ; ContributorSystem: Tap2printChart ; Last Updated: 10/25/2010 20:20 FAMILY MEDICINE PHYSICIAN ASSISTANT ; Life Cycle Date: 10/25/2010 ; Life Cycle Status: Active ; Responsible Provider: PATTI ALMENDAREZ LPN; Vocabulary: ICD-9-CM Diverticulitis of large intestine (ICD-9-CM :562.11 ) Name of Problem: Diverticulitis of large intestine ; Onset Date: 10/28/2010 ; Recorder: ALBANIA VARMA RN, CNP; Confirmation: Confirmed ; Classification: Medical ; Code: 562.11 ; Last Updated: 10/28/2010 16:30 FAMILY MEDICINE PHYSICIAN ASSISTANT ; Life Cycle Status: Active ; Respo [...] ALMENDAREZ LPN date unknown Glaucoma (SNOMED CT :47010733 ) Name of Problem: Glaucoma ; Recorder: TAMMY ACEVES MD; Confirmation: Confirmed ; Classification: Medical ; Code: 25019867 ; Contributor System: PowerChart ; Last Updated: [...] Medical ; Code: 722.10 ; Contributor System: Tap2printChart ; Last Updated: 11/04/2010 9:49 FAMILY MEDICINE PHYSICIAN ASSISTANT ; Life Cycle Date: 11/04/2010 ; Life Cycle Status: Active ; Responsible Provider: ALBANIA VARMA RN, IVANA; Vocabulary: ICD-9-CM ; Comments: 12/31/201012:11 - PATTI ALMENDAREZ LPN date unknown Osteopenia (ICD-9-CM :733.90 ) Name of Problem: Osteopenia ; Onset Date: 02/26/1987 ; Recorder: PATTI ALMENDAREZ LPN; Confirmation: Confirmed ; Classification: Nursing ; Code: 733.90 ; Contributor System: [employer] ; Last Updated: 10/25/2010 20:19 FAMILY MEDICINE PHYSICIAN ASSISTANT ; Life Cycle Date: 10/25/2010 ; Life Cycle Status: Active ; Responsible Provider: PATTI ALMENDAREZ LPN; Vocabulary: ICD-9-CM Diagnoses(Active) Hip pain-swelling Date: 05/15/2013 ; Diagnosis Type: Reason For Visit ; Confirmation: Complaint of ;Clinical Dx: Hip pain-swelling ; Classification: Medical ; Clinical Service: Emergency medicine ; Code: PNED ; Probability: 0 ; Diagnosis Code: [id number] Triage Chief Complaint Description : Slipped and [...] vehicle Track : Trauma Other Languages : Tajik Patient Informed of Triage Location : Emergency [...] CDT DCP GENERIC CODE Tracking Group : [facility] ED KATHRYN ACEVES RN - 05/15/2013 18:07 [...] A RN - 05/15/2013 18:07 CDT Source: Kartela Document Id: [id number] CDT!49 documented in this encounter Miscellaneous Notes Miscellaneous - Faviola Wilkinson R.N. - 05/15/2013 8:37 PM CDT Valuables/Belongings Valuables/Belongings Entered On: 05/15/2013 20:37 CDT Performed On: 05/15/2013 20:37 CDT by FAVIOLA WILKINSON RNs/Belongingdaria Home Medication Disposition : None brought in with patient FAVIOLA WILKINSON RN - 05/15/2013 20:37 CDT Source: Kartela Document Id: [id number] CDT!3 Miscellaneous - Faviola Wilkinson R.N. - [...] Control : 14 Lynx Visit Level : 74252 Level 5 FAVIOLA WILKINSON RN - 05/15/2013 20:37 CDT Source: [facility] POWERCHART Document Id: [id number] CDT!15 documented in this encounter Plan of [...] % 37.6 23.0 - POWERCHART 44.0 HX [place] % 12.0 2.0 - 18.0 POWERCHART HX [...] X109L Erythrocytes 4.12 3.90 - POWERCHART 5.03 P8080Q Hemoglobin 12.6 12.0 - POWERCHART 15.5 GDL [...] M.D. LAB BLOOD ADD-ON Performing Organization Address City/[facility] Code Phon e Number POWERCHART (ABNORMAL) BMP [...] POWERCHART MMOLL HXeGFR (MDRD) 60 >=60 POWERCHART [id number] Comment: A GFR of <60 mL/min is indicative of chr onic kidney disease. (MDRD calculation valid on patients 18-7 0 years.) eGFR Black/ >60 >=60 [id number] POWERCHART Glucose 84 70 - 139 MGDL [...] Negative POWERCHART Specific 1.010 1.000 - POWERCHART [place], POCT, U 1.030 pH, POCT, Urine 5.5 [...]
--- OUTSIDE RECORDS SUMMARY | 2022-05-23 11:33 | XMS_ITS | Encounter Summary ---
:1935 Author Organization [facility] Address [address] [place] [address] Care Team Providers Name Role Phone Unavailable Primary Care Provider Unavailable Encounter Details Date Type Department Care Team Description 05/23/2013 Hospital Encounter HX [facility] Cielo Bhakta M.D. [address] [place] [phone] (Wo rk) Social History Tobacco Use [...] CDT Laboratory developed test. Test Performed by: [address] [address] Manager Green: Scot ybarra III, M.D. Cielo Turner M.D. LAB MICROBIOLOGY - GENE RAL ORDERABLES Performing Organization Address City/[facility] Code Phon e Number POWERCHART HX-C diff Srce (05/23/2013 2:21 PM CDT) athologist Signature HXC diff STOOL POWERCHART Srce-[place] Specimen (Source) Anatomical Collection Method Collection Time Re ceived Time Location / / Volume Laterality 05/23/2013 2:21 PM CDT Cielo Turner M.D. LAB HISTORICAL ORDERS Performing Organization Address City/State/ZIP Code Phon e Number POWERCHART documented in this encounter Visit Diagnoses Not on filedocumented in this encounter
--- OUTSIDE RECORDS SUMMARY | 2022-05-23 11:33 | XMS_ITS | Encounter Summary ---
:1935 Author Organization [facility] Address [address] [place] [address] Care Team Providers Name Role Phone Unavailable Primary Care Provider Unavailable Encounter Details Date Type Department Care Team Description 07/28/2012 Hospital Encounter HX [facility] ME Mary Cortez, CYRIL, C.N.P., D. N.P. [address] [place] [phone] (Wo rk) Social History Tobacco Use [...]
--- OUTSIDE RECORDS SUMMARY | 2022-05-23 11:33 | XMS_ITS | Encounter Summary ---
:1935 Author Organization [facility] Address [address] [place] [address] Care Team Providers Name Role Phone Unavailable Primary Care Provider Unavailable Encounter Details Date Type Department Care Team Description 09/05/2013 Hospital Encounter HX [facility] Albania Varma APR N, C.N.P., D.N.P. [address] [place], [place] [phone] (Wo rk) Social History [...] CST Results Notification From: ALBANIA VARMA RN, CITY ENGINEER Sent: 09/05/2013 15:29:01 COMMUNICATIONS ADMINISTRATOR Show up: 09/05/2013 15:29:00 COMMUNICATIONS ADMINISTRATOR Subject: Results Notification pt informed of results. Will continue conservative treatment for chest wall pain Results: Date Result Type Result Name 09/05/2013 11:[address] Abdomen w/ contrast Source: [facility] POWERCHART Document Id: [id number] Electronically signed by Conversion, [facility] Agriculture Specialist [id number] at 02/12/2017 12:27 AM CDT documented in this encounter Plan of Treatment Not on filedocumented as of this encounter Visit Diagnoses Not on filedocumented in this encounter
--- OUTSIDE RECORDS SUMMARY | 2022-05-23 11:33 | XMS_ITS | Encounter Summary ---
:1935 Author Organization [facility] Address [address] [place] [address] Care Team Providers Name Role Phone Unavailable Primary Care Provider Unavailable Encounter Details Date Type Department Care Team Description 09/05/[address] [facility] ME Mary Varma, CYRIL, C.N.P., D. N.P. [address] [place] [address] (Wo rk) Social History Tobacco Use Types Packs/Day Years Used Date Smoking Tobacco: Never Assessed Sex Assigned at Date Recorded Not on file documented as of this encounter Last Filed Vital Signs Vital Sign Reading Time Taken Comments Blood Pressure 126/70 09/05/2013 8:04 AM EMERGENCY PHYSICIAN Pulse 74 09/05/2013 8:04 AM EMERGENCY PHYSICIAN Temperature - - Respiratory Rate 16 09/05/2013 8:04 AM EMERGENCY PHYSICIAN Oxygen Saturation - - Inhaled Oxygen Concentration - - Weight 75.6 kg (166 lb 10.7 oz) 09/05/2013 8:04 AM EMERGENCY PHYSICIAN Height - - Body Mass Index 29.94 08/25/2013 1:55 PM EMERGENCY PHYSICIAN documented in this encounter Medications at Time [...] APRN, C.N.P. - 09/05/2013 7:59 AM CST [id number] CHIEF COMPLAINT/REASON FOR VISIT Chest wall pain. [...] Quiroga/joby Electronically Signed By: MARY VARMA RN, BOOT LINER MAKER On: 09/19/2013 03:46 PM Source: [facility] MHSDOLBEYNONRADSYS Document Id: [id number] GENCY PHYSICIAN documented in this encounter Miscellaneous Notes Miscellaneous - Mary Varma APRN C.N.P. - 09/05/2013 3:35 PM CST Normal Results Letter 05 September 2013 KATHRYN LEON [address] 14 [facility] [id number] Dear KATHRYN LEON, Here is a report [...] 32.4 09/05/2013 37.6 05/15/2013 23.0 - 44.0 Sumner % (%) 13.4 09/05/2013 12.0 05/15/2013 2.0 - 18.0 Eos % (%) 5.0 09/05/2013 (H) 5.1 05/15/2013 1.0 - 5.0 Baso % (%) 0.5 09/05/2013 0.4 05/15/2013 0.0 - 1.0 Neutro Absolute (10(9)/L) 1.85 09/05/2013 2.39 05/15/2013 1.70 - 7.00 Lymph Absolute (x10(9)/L) 1.23 09/05/2013 2.00 05/15/2013 0.90 - 2.90 Sumner Absolute (x10(9)/L) 0.51 09/05/2013 0.64 05/15/2013 0.30 - 0.90 Eos Absolute (x10(9)/L) 0.19 09/05/2013 0.27 05/15/2013 0.05 - 0.50 Baso Absolute (x10(9)/L) 0.02 09/05/2013 0.02 05/15/2013 0.00 - 0.30 Differential? Auto 09/05/2013 Auto 05/15/2013 Sincerely, MARY VARMA [address] [place] [address] Electronic Signature Electronically Signed By: MARY VARMA RN, BOOT LINER MAKER On: 05 September 2013 This document has images extracted. Source: [facility] POWERCHART Document Id: [id number] Electronically signed by Conversion, [facility] Binder And Box Builder [id number] at 02/12/2017 12:27 AM CDT Miscellaneous - Mary Varma APRN, C.N.P. - 09/05/2013 8:54 AM CST Ambulatory Patient Summary [address] [address] Visit Information Name: KATHRYN LEONARCHANA [facility] Number: [id number] Current Date: 09/05/2013 08:54:20 Physicians Attending Provider: MARY VARMA RN, BOOT LINER MAKER Primary Care Provider: MARY VARMA RN, IVANA [...] nasal (Flonase 0.05 mg/inh nasal spray) 2 Greenbush(s), Nostrils(Both), once a day gabapentin (gabapentin 300 [...] appointment detail needed. Your Goals/Additional instructions: Source: [facility] POWERCHART Document Id: [id number] GENCY PHYSICIAN Miscellaneous - Mary Varma APRN, C.N.P. - 09/05/2013 8:54 AM CST Ambulatory Depart Summary [address] [address] Visit Information Name: KATHRYN LEON [facility] Number: [id number] Visit Date: 09/05/2013 08:54:16 Attending Provider: MARY VARMA RN, BOOT LINER MAKER Primary Care Provider: MARY VARMA RN, BOOT LINER MAKER KATHRYN LEON has been given the following [...] nasal (Flonase 0.05 mg/inh nasal spray) 2 Greenbush(s), Nostrils(Both), once a day gabapentin (gabapentin 300 [...] in case of emergency. Additional Information: Source: [facility] POWERCHART Document Id: [id number] GENCY PHYSICIAN Miscellaneous - Sujatha Batista L.P.N. - 09/05/2013 8:09 AM CST Health Assessment Health Assessment Entered On: 09/05/2013 8:09 EMERGENCY PHYSICIAN Performed On: 09/05/2013 8:09 EMERGENCY PHYSICIAN by SUJATHA BATISTA LPN Health Assessment Complete Health Assessment Complete or Modified : Annual Health Assessment Annual Health Assessment Completed : Yes SUJATHA BATISTA LPN - 09/05/2013 8:09 EMERGENCY PHYSICIAN Nutrition Nutrition Risk Factors by History Adult : None SUJATHA BATISTA LPN - 09/05/2013 8:09 EMERGENCY PHYSICIAN Functional Current Daily Living Assistance : None SUJATHA BATISTA LPN - 09/05/2013 8:09 EMERGENCY PHYSICIAN Dependent Habits Tobacco Use/Currently Using : No Exposure to Tobacco Smoke : Care provider denies smoking in home Smoking Status : Never smoker SUJATHA BATISTA LPN - 09/05/2013 8:09 EMERGENCY PHYSICIAN Tobacco Use Grid Last Use : never SUJATHA BATISTA LPN - 09/05/2013 8:09 EMERGENCY PHYSICIAN Caffeine Use Grid Caffeine Use : Current Type : Coffee Frequency : Weekly SUJATHA BATISTA LPN - 09/05/2013 8:09 EMERGENCY PHYSICIAN Recreational Drug Use Grid Drug Use : None SUJATHA BATISTA LPN - 09/05/2013 8:09 EMERGENCY PHYSICIAN Psychosocial Domestic Abuse Concerns : None SUJATHA BATISTA LPN - 09/05/2013 8:09 EMERGENCY PHYSICIAN Advance Directive Advanced Directives : No Advance Directive Additional Information : Yes SUJATHA BATISTA LPN - 09/05/2013 8:09 EMERGENCY PHYSICIAN Educ Needs Learning Style Preference Adult Grid Patient : Demonstration Family : None SUJATHA BATISTA LPN - 09/05/2013 8:09 EMERGENCY PHYSICIAN Source: [facility] POWERCHART Document Id: [id number] EMERGENCY PHYSICIAN!32 GENCY PHYSICIAN Miscellaneous - Sujatha Batista LDannP.NDann - 09/05/2013 8:04 AM CST 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 Intake/History 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 Intake/History Entered On: 09/05/2013 8:08 EMERGENCY PHYSICIAN Performed On: 09/05/2013 8:04 EMERGENCY PHYSICIAN by SUJATHA BATISTA LPN Intake Chief Complaint [...] scale Dosing Weight Clinic : 75.6 kg SUJAHTA BATISTA LPN - 09/05/2013 8:04 EMERGENCY PHYSICIAN General Info Information Given By : Patient Preferred Communication Mode : Verbal Languages : Swedish SUJATHA BATISTA LPN - 09/05/2013 8:04 EMERGENCY PHYSICIAN Subjective Pain Symptoms : Yes SUJATHA BATISTA LPN - 09/05/2013 8:04 EMERGENCY PHYSICIAN Pain Pain Assessment Grid Pain 1 Location : Other: Rib cage Laterality : Left Intensity : 8 SUJATHA BATISTA LPN - 09/05/2013 8:04 EMERGENCY PHYSICIAN Dependent Habits Tobacco Use/Currently Using : No Exposure to Tobacco Smoke : Care provider denies smoking in home Smoking Status : Never smoker ISABELA SUJATHA [facility] - 09/05/2013 8:04 EMERGENCY PHYSICIAN Tobacco Use Grid Last Use : never ISABELA SUJATHA R [facility] - 09/05/2013 8:04 EMERGENCY PHYSICIAN Caffeine Use Grid Caffeine Use : Current Type : Coffee Frequency : Weekly SUJATHA BATISTA [facility] - 09/05/2013 8:04 EMERGENCY PHYSICIAN Recreational Drug Use Grid Drug Use : None BATISTA SUJATHA [facility] - 09/05/2013 8:04 EMERGENCY PHYSICIAN Source: [facility] POWERCHART Document Id: [id number] EMERGENCY PHYSICIAN!42 GENCY PHYSICIAN documented in this encounter Plan of Treatment Not on filedocumented as of this encounter Procedures Procedure Name Priority Date/Time Associated Comments Diagnosis AUTOMATED Routine 09/05/2013 9:00 AM Results f or this DIFFERENTIAL, B EMERGENCY PHYSICIAN procedure ar e in the results section. CBC WITH DIFFERENTIAL, Routine 09/05/2013 9:00 AM Results for this B EMERGENCY PHYSICIAN procedure are i n the results section. C-REACTIVE PROTEIN Routine 09/05/2013 9:00 AM Res ults for this (CRP), S/P EMERGENCY PHYSICIAN procedure are i n the results section. LIPASE, S/P Routine 09/05/2013 9:00 AM Results f or this EMERGENCY PHYSICIAN procedure are i n the results section. COMPREHENSIVE Routine 09/05/2013 9:00 AM Results for this METABOLIC PANEL, S/P EMERGENCY PHYSICIAN procedu re are in the results section. documented in this encounter Results Automated Differential (09/05/2013 9:00 AM EMERGENCY PHYSICIAN) P athologist Signature Neutro % 48.7 42.0 - POWERCHART 77.0 Lymphocytes % 32.4 23.0 - POWERCHART 44.0 HX Sumner % 13.4 2.0 - 18.0 POWERCHART HX [...] Laterality Blood 09/05/2013 9:00 AM 3 9:00 EMERGENCY PHYSICIAN AM EMERGENCY PHYSICIAN Mary Varma APRN C.N.P., D.N.P. LAB BLOOD ADD-ON Performing Organization Address City/State/ZIP Code Phon e Number POWERCHART CBC with Differential (09/05/2013 9:00 AM EMERGENCY PHYSICIAN) athologist Signature Leukocytes 3.8 3.4 - 10.5 POWERCHART X109L Erythrocytes 4.21 3.90 - POWERCHART 5.03 [id number] Hemoglobin 12.3 12.0 - POWERCHART 15.5 GDL Hematocrit 38.0 34.9 - POWERCHART 44.5 MCV 90.3 82.0 - POWERCHART 98.0 FL HX RDW 12.5 11.9 - POWERCHART 15.5 Platelet Count 187 150 - 450 POWERCHART X109L HXDifferential? Auto POWERCHART Specimen (Source) Anatomical Collection Method Collection Time Re ceived Time Location / / Volume Laterality Blood 09/05/2013 9:00 AM EMERGENCY PHYSICIAN Mary Varma APRN C.N.P., D.N.P. LAB BLOOD ADD-ON Performing Organization Address City/[facility]/ZIP Code Phon e Number POWERCHART CRP (C-Reactive Protein) (09/05/2013 9:00 AM EMERGENCY PHYSICIAN) athologist Signature C-Reactive 0.4 0.0 - 0.8 POWERCHART Protein (CRP), MGDL S Specimen (Source) Anatomical Collection Method Collection Time Re ceived Time Location / / Volume Laterality Blood 09/05/2013 9:00 AM EMERGENCY PHYSICIAN Mary Varma APRN C.N.P., D.N.P. LAB BLOOD ADD-ON Performing Organization Address City/State/ZIP Code Phon e Number POWERCHART Lipase (09/05/2013 9:00 AM EMERGENCY PHYSICIAN) P athologist Signature Lipase, S 17.8 10.0 - 73.0 POWERCHART UL Specimen (Source) Anatomical Collection Method Collection Time Re ceived Time Location / / Volume Laterality Blood 09/05/2013 9:00 AM EMERGENCY PHYSICIAN Mary Varma APRN, C.N.P., D.N.P. LAB BLOOD ADD-ON Performing Organization Address City/State/ZIP Code Phon e Number POWERCHART (ABNORMAL) CMP (Comprehensive Metabolic Panel) (09/05/2013 9:00 AM EMERGENCY PHYSICIAN) Patholo gist Method Time Signature Anion Gap [...] GDL HXeGFR (MDRD) 56 (L) >=60 POWERCHART [id number] 2 eGFR Black/ >60 >=60 POWERCHART Prydeinig [id number] 2 Specimen (Source) Anatomical Collection Method Collection Time Re ceived Time Location / / Volume Laterality Blood 09/05/2013 9:00 AM EMERGENCY PHYSICIAN Mary Varma APRN, C.N.P., D.N.P. LAB BLOOD ADD-ON Performing Organization Address City/State/ZIP Code Phon e Number POWERCHART documented in this encounter Visit Diagnoses Not on filedocumented in this encounter
--- OUTSIDE RECORDS SUMMARY | 2022-05-23 11:33 | XMS_ITS | Encounter Summary ---
:1935 Author Organization [facility] Address [address] [place] [address] Care Team Providers Name Role Phone Unavailable Primary Care Provider Unavailable Encounter Details Date Type Department Care Team Description 07/29/2012 Hospital Encounter HX [facility] ME Mary Cortez, CYRIL, C.N.P., D. N.P. [address] [place] [id number] (Wo rk) Social History Tobacco Use [...]
--- OUTSIDE RECORDS SUMMARY | 2022-05-23 11:33 | XMS_ITS | Encounter Summary ---
:1935 Author Organization [facility] Address [address] [place] [address] Care Team Providers Name Role Phone Unavailable Primary Care Provider Unavailable Encounter Details Date Type Department Care Team Description 06/07/2013 Hospital Encounter HX [facility] ME [place] Varma, CYRIL, C.N.P., D. N.P. [address] [place] [address] (Wo rk) Social History Tobacco [...] APRN, C.N.P. - 06/07/2013 7:55 AM CDT [id number] CHIEF COMPLAINT/REASON FOR VISIT 1. Recent fall. [...] Quiroga/tommy Electronically Signed By: ALBANIA VARMA RN, FIRE OFFICIAL On: 06/13/2013 05:37 AM Source: [facility] MHSDOLBEYNONRADSYS Document Id: [id number] documented in this encounter Miscellaneous Notes Miscellaneous - [place] Varma APRN, C.N.P. - 06/09/2013 12:18 PM CDT Normal Results Letter 09 June 2013 BRIANA LEON [address] [facility] [id number] Dear BRIANA LEON, I am pleased to [...] 12.0 - 15.5 Sincerely, ALBANIA VARMA [address] [place] [address] Electronic Signature Electronically Signed By: ALBANIA VARMA RN, FIRE OFFICIAL On: 09 June 2013 This document has images extracted. Source: [facility] [employer] Document Id: [id number] Electronically signed by Dustin [facility] Screen Room Operator [id number] at 02/11/2017 11:37 PM CDT Miscellaneous - [place] Varma, CYRIL, C.N.P. - 06/07/2013 9:49 AM CDT General Message Document Contains Addenda Addendum by SUJATHA BATISTA LPN on 24 June 2013 12:01:34 CDT From: SUJATHA BATISTA LPN To: ALBANIA VARMA RN, FIRE OFFICIAL; Sent: 06/24/2013 12:01:34 CDT Subject: RE: General [...] 10:03:34 CDT 06/21/13 From: ALBANIA VARMA RN, FIRE OFFICIAL To: SUJATHA BATISTA LILY; Sent: 06/07/2013 09:49:59 CDT Subject: General Message please call and check on in 2 wks. Source: [facility] POWERCHART Document Id: [id number] Electronically signed by Conversion, [facility] Screen Room Operator [id number] at 02/11/2017 11:37 PM CDT Miscellaneous - [place] Varma APRN, C.N.P. - 06/07/2013 8:38 AM CDT Ambulatory Patient Summary [id number] [place] [address] Visit Information Name: BRIANA LEON [facility] Number: [id number] Current Date: 06/07/2013 08:38:29 Physicians Attending Provider: ALBANIA VARMA RN, FIRE OFFICIAL Primary Care Provider: ALBANIA VARMA RN, FIRE OFFICIAL Your Medications Here is a list of [...] No Appointments found Your Goals/Additional instructions: Source: [facility] POWERCHART Document Id: [id number] Miscellaneous - [place] Varma APRN, C.N.P. - 06/07/2013 8:38 AM CDT Ambulatory Depart Summary [address] [place] [address] Visit Information Name: BRIANA LEON [facility] Number: [id number] Visit Date: 06/07/2013 08:38:28 Attending Provider: ALBANIA VARMA RN, FIRE OFFICIAL Primary Care Provider: ALBANIA VARMA RN, FIRE OFFICIAL BRIANA LEON has been given the following [...] your provider for clarification. Additional Information: Source: [facility] POWERCHART Document Id: [id number] Miscellaneous - Sujatha Batista L.P.N. - 06/07/2013 8:01 AM CDT Adult Developmental Services Worker Intake/History Adult Developmental Services Worker Intake/History Entered On: 06/07/2013 8:08 CDT Performed [...] Preferred Communication Mode : Verbal Languages : [place] Citizen SUJATHA BATISTA LPN - 06/07/2013 8:01 CDT [...] SUJATHA BATISTA LPN 06/07/2013 8:01 CDT [facility] POWERCHART Document Id: [id number] CDT!46 documented in this encounter Plan of [...] BLOOD ADD-ON Performing Organization Address City/[facility] Code Phon e Number POWERCHART Sodium (06/07/2013 8:53 AM CDT) athologist Signature Sodium, S 136.0 135.0 - POWERCHART 145.0 MML Specimen (Source) Anatomical Collection Method Collection Time Re ceived Time Location / / Volume Laterality Blood 06/07/2013 8:53 AM CDT [place] Varma APRN, C.N.P., D.N.P. LAB BLOOD ADD-ON Performing Organization Address City/State/[facility] Code Phon e Number POWERCHART documented in this encounter Visit Diagnoses Not on filedocumented in this encounter
--- OUTSIDE RECORDS SUMMARY | 2022-05-23 11:33 | XMS_ITS | Encounter Summary ---
:1935 Author Organization [facility] Address [address] [place] [address] Care Team Providers Name Role Phone Unavailable Primary Care Provider Unavailable Encounter Details Date Type Department Care Team Description 04/23/2013 Hospital Encounter HX [facility] ME [place] Varma, CYRIL, C.N.P., D. N.P. [address] [place] [phone] (Wo rk) Social History Tobacco [...] APRN, C.N.P. - 04/23/2013 9:40 AM CDT [id number] CHIEF COMPLAINT/REASON FOR VISIT Thrush. HISTORY OF [...] Patient/Child/Caregiver expressed understanding of the content Aakash Quiroga/[facility] Electronically Signed By: ALBANIA VARMA RN, [facility] On: 04/26/2013 07:48 AM Source: [facility] MHSDOLBEYNONRADSYS Document Id: [id number] documented in this encounter Miscellaneous Notes Miscellaneous - Bianca Garcia - 04/25/2013 8:53 AM CDT General Message Document Contains Addenda Addendum by BIANCA GARCIA RN on 25 April 2013 14:09:33 CDT patient informed Addendum by ALBANIA VARMA RN, BREAD PANNER on 25 April 2013 12:33:46 CDT From: ALBANIA VARMA RN, BREAD PANNER To: BIANCA GARCIA RN; Sent: 04/25/2013 12:33:46 CDT Subject: RE: General Message swallow From: BIANCA GARCIA RN To: ALBANIA VARMA RN, IVANA; Sent: 04/25/2013 08:53:01 CDT Subject: General Message Prescribed nystatin, patient wants to know whether swish and swallow or swish and spit. Pharmacist said to ask you. Thanks. Source: [facility] POWERCHART Document Id: [id number] Electronically signed by Dustin, [facility] Sales Team Member [id number] at 02/11/2017 8:13 AM CDT Miscellaneous - [place] Varma, CYRIL, C.N.P. - 04/23/2013 10:36 AM CDT Ambulatory Patient Summary [address] [address] Visit Information Name: BRIANA LEON [facility] Number: [id number] Current Date: 04/23/2013 10:36:11 Physicians Attending Provider: ALBANIA VARMA RN, BREAD PANNER Primary Care Provider: ALBANIA VARMA RN, BREAD PANNER Your Medications Here is a list of [...] No Appointments found Your Goals/Additional instructions: Source: [facility] POWERCHART Document Id: [id number] Miscellaneous - [place] Varma APRN C.N.P. - 04/23/2013 10:36 AM CDT Ambulatory Depart Summary [id number] [place] [address] Visit Information Name: BRIANA LEON [facility] Number: [phone] Visit Date: 04/23/2013 10:36:09 Attending Provider: ALBANIA VARMA RN, BREAD PANNER Primary Care Provider: ALBANIA VARMA RN, BREAD PANNER BRIANA LEON has been given the following [...] your provider for clarification. Additional Information: Source: [facility] POWERCHART Document Id: [id number] Miscellaneous - Erika Noonan L.PDannN. 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
--- OUTSIDE RECORDS SUMMARY | 2022-05-23 11:33 | XMS_ITS | Encounter Summary ---
:1935 Author Organization [facility] Address [address] [place] [id number] Care Team Providers Name Role Phone Unavailable Primary Care Provider Unavailable Encounter Details Date Type Department Care Team Description 05/15/2013 - Hospital Encounter HX [facility] MAT[facility]O Rodriguez Con 05/18/2013 INPT/OBSRV [place] [address] [id number] Social History Tobacco Use Types [...] 05/18/2013 4:24 PM CDT Inpatient Discharge Instructions [facility] [address] [facility] [place] [address] Patient Discharge Instructions Name: KATHRYN LEON Current Date: 05/18/2013 16:24:34 : 1935 12:00 AM [facility] Number: [id number] Patient Address: [address] [place] [address] [place] [id number] Patient Primary Care Provider: Name: ALBANIA VARMA RN, DATA ENTRY CLERK Discharge Diagnosis: Closed fracture of rib NOS [facility] in [place] would like to thank you for allowing us to assist you withyour healthcare needs. The following includes patient education materials and information regarding your injury/illness. Comment: KATHRYN LEON has been given the following list of follow-up instructions, medication list, and patient education materials: Follow-up Instructions With: Address: When: ANISHA VILLA[address] [place] [address] Business (1) 05/24/2013 09:45:00 Comments: 9:45 check [...] Date Time Location Reason Provider 05/24/2013 09:45 PSYCHIATRIC Family Med FU ON HOSP. PAIN MGMT Daisy NOLAN, CAROLYN Escobar MARY CATHERINE , have received the attached patient education materials/instructions and have verbalized understanding: Patient Signature Date Time Care Provider Signature Date Time [id number] RIB FRACTURE You have a fracture (break) [...] by your healthcare provider Congested cough ?? [id number] Jannet Varela, [address] [place] [address], [place] [address]. All rights reserved. This information is not intended as a substitute for professional medical care. Always follow your healthcare professional's instructions. This document has images extracted. Please consider using [employer] for all your patient education needs. Source: [facility] POWERCHART Document Id: [id number] Yeimy Lang R.N. - 05/18/2013 4:24 PM CDT Discharge Medication List [address] [address] Discharge Medication List Name: KATHRYN LEON Current Date: 05/18/2013 16:24:31 : 1935 12:00 AM [facility] Number: [id number] Patient Address: [address] [place] [id number] Patient Primary Care Provider: Name: ALBANIA VARMA RN, [facility] Discharge Diagnosis: Closed fracture of rib NOS [facility] in [place] would like to thank you for allowing [...] JORDI WILSON MD Signed On:18-MAY-2013 14:10:49 Source: [facility] POWERCHART Document Id: [id number] Yeimy Lang, R.N. - 05/18/2013 4:16 PM CDT Discharge Summary Discharge Summary Entered On: 05/18/2013 16:17 CDT Performed On: 05/18/2013 16:16 CDT by YEIMY LANG RN NC Information Discharged to : Home with family [...] LANG RN - 05/18/2013 16:16 CDT Source: [facility] [employer] Document Id: [id number] CDT!16 Jordi Wilson M.D. - 05/18/2013 2:30 PM CDT [id number] ADMIT DATE: 05/15/2013 DISCHARGE DATE: 05/18/2013 14:30 [...] had a fall in a motel in [place] when she was planning to attend her granddaughter's graduation from [employer]. The incidents happened on May 12. She was unable to attend the graduation ceremony. She was seen at the local Emergency Room after the fall and had multiple x-rays done; was sent home on [facility] and at that time patient decided to come back to her hometown in [place]. She was driven by her in the backseat of her car. She was taking pain medications. She had a difficult ride back home secondary to severe pain with any movements. Most of the time she laid on the backseat of the car. Patient's drove straight to [place] [facility] once they arrived back in [place] and at that time she was complaining of left-sided chest pain, hip pain and lumbar area pain. She was diagnosed with left 8th rib fracture after x-rays were taken in the Emergency Room at [facility]. She had a difficult time transferring, ambulating, [...] WILSON MD On: 05/18/2013 03:51 PM Source: [facility] [employer] Document Id: [id number] documented in this encounter Medications at Time [...] LANG RN On: 05/18/2013 04:24 PM Source: [facility] POWERCHART Document Id: [id number] Shon Tillman P.T. - 05/18/2013 1:45 PM [...] Established w Pt/Caregiver : Yes SHON TILLMAN [facility] - 05/18/2013 13:45 CDT General [...] Basic Command Following : Intact SHON TILLMAN [facility] - 05/18/2013 13:45 CDT Pain Pain Assessment Grid Pain 1 Location : Lower back Laterality : Left SHON TILLMAN Lee [facility] - 05/18/2013 13:45 CDT Treatment Therapeutic Activities/Exercise Provided : Yes SHON TILLMAN Lee [facility] - 05/18/2013 13:55 CDT Mobility/Balance Training Provided : Yes PT Treatment Patient Response : Pt continued to complain of low back/hip pain in session. Some dizziness noted with sit<>stand. Tolerated activity with rest breaks. PT Total Treatment Time : 30 minute(s) SHON TILLMAN [facility] - 05/18/2013 13:45 CDT Treatment Assessment : Pt was in bed prior to session. Required min A-CGA for bed mobility. Pt did have a small BM in the bed, nurse was called to assist in clean up. Pt ambulated 3 bouts, seated rest breaks between, limited by pain and fatigue. Pt performed stairs and tolerated well. Pt returned to room, SLIP DUMPER notified pt wished to have shower before discharge. SHON TILLMAN Lee [facility] - 05/18/2013 13:55 CDT Mobility/Balance PT Standing Balance Training : standing at EOB, required 2WW for support, about 1 minute. SHON TILLMAN Lee [facility] - 05/18/2013 13:45 CDT Mobility [...] Discharge To, Anticipated : Home with family [facility] Equipment, Anticipated : Walker Walker Specifics : Front wheeled walker SHON TILLMAN Lee DPT - 05/18/2013 13:45 CDT PT Charge Registration Status - PT : Inpatient: Observation Medicare Status - PT : Medicare Primary or Secondary KX Modifier Required - PT : No PT Certification Date Start : 05/17/2013 CDT PT Certification Date End : 05/18/2013 CDT Visit Requires [facility] Reporting - PT : Discharge: Report [...] TILLMAN DPT - 05/18/2013 13:55 CDT [facility] Document Id: [id number] CDT!80 Umu Coker O.Marleni - 05/18/2013 1:40 PM CDT OT Discharge OT Discharge Entered On: 05/18/2013 13:51 CDT Performed On: 05/18/2013 13:40 CDT by UMU BROWN Goals Review OT Goals : Activity: Lower extremity dressing Assist Level: Modified independence Device/Equipment: Bench Machine Operator, Sock aid Level: Time Frame to Reach [...] independence Modified independence Modified independence Device/Equipment : Bench Machine Operator, Sock aid Other: fww Other: fww Time [...] Modified independent UMU BROWN 05/18/2013 13:40 CDT MUU BROWN - 05/18/2013 13:40 CDT ISAURO BROWNYARITZA Sage - 05/18/2013 13:40 CDT OT Charge Registration Status - OT : Inpatient: Observation Medicare Status - OT : Medicare Primary or Secondary KX Modifier Required - OT : Yes Visit Requires [facility] Reporting - OT : Discharge: Report [...] UMU BROWN - 05/18/2013 13:40 CDT Source: [employer] Document Id: [id number] CDT!68 Shon Tillman, P.T. - 05/17/2013 11:45 [...] BROWER RN-05/15/13 20:56:00 MONICA TILLMANJose A Howard [facility] - 05/17/2013 11:45 CDT Prior Functional Level Grid Bed Mobility : Independent Transfers : Independent Ambulation at Home : Independent Community Ambulation : Independent Stairs : Independent Car Transfers : Independent Toilet Transfers : Independent Upper Extremity Bathing : Independent Lower Extremity Bathing : Independent Upper Extremity Dressing : Independent Lower Extremity Dressing : Independent Grooming : Independent SHON TILLMAN Lee [facility] - 05/17/2013 11:45 CDT Musculoskeletal [...] Fair (Comment: Requires UE assist [SHON TILLMAN [facility] - 05/17/2013 14:33 CDT] ) Standing Balance : Fair (Comment: Requires walker for assist. Impaired due to dizziness [SHON TILLMAN [facility] - 05/17/2013 14:33 CDT] ) SHON TILLMAN [facility] - 05/17/2013 11:45 CDT Mobility Grid Supine to Sit : Minimal assist Sit to Supine : Minimal assist Scooting : Minimal assist Sit to Stand : Contact guard Stand to Sit : Contact guard Bed to/from Chair : Minimal assist SHON TILLMAN [facility] - 05/17/2013 11:45 CDT Ambulation Quality : Amb. 20 ft in room, 2WW, CGA, slow pace, unsteady, limited by pain in L low back SHON TILLMAN [facility] - 05/17/2013 11:45 CDT Neuro Muscle Tone : Normal SHON TILLMAN [facility] - 05/17/2013 11:45 CDT Assessment Rehabilitation Potential : Fair PT Problem List : Ambulation deficits, Balance deficits, Bed mobility deficits, Decreased activity tolerance, Pain limiting function, Strength/Range of motion deficits, Transfer deficits SHON TILLMAN [facility] - 05/17/2013 11:45 CDT PT Clinical Assessment : Pt was admitted for observation s/p a fall in [facility]. She sustained a L 8th rib fracture [...] discharge home at this time. SHON TILLMAN [facility] - 05/17/2013 14:33 CDT Goals [...] Discharge To, Anticipated : Home with family [facility]CI Equipment, Anticipated : Grab bars, Shower chair, [...] Date End : 05/18/2013 CDT Visit Requires [facility] Reporting - PT : Initial Evaluation: [...] Howard DPT - 05/17/2013 14:33 CDT Source: [facility] POWERCHART Document Id: [id number] CDT!114 NT Jordi Wilson M.D. - 05/17/2013 12:00 AM CDT [id number] CHIEF COMPLAINT/REASON FOR VISIT Patient has 8th [...] WILSON MD On: 05/18/2013 06:11 AM Source: [facility] [employer] Document Id: [id number] Jordi Wilson M.D. - 05/16/2013 12:00 AM CDT [id number] CHIEF COMPLAINT/REASON FOR VISIT Patient is complaining [...] WILSON MD On: 05/17/2013 07:46 AM Source: [facility] [employer] Document Id: [id number] documented in this encounter H&P Notes Umu [...] A/E prn in order to return to [facility]. Pt. has a [id number] self- care with a modifier of CK. EVANS BROWNA Chu 05/17/2013 10:20 CDT Goals OT Patient/Caregiver Goal : Pt. would like to return home at [facility]. BROWN UMU K 05/17/2013 10:20 CDT OT Goal Grid Activity : Lower extremity dressing Hygiene/grooming Transfers Assist Level : Modified independence Modified independence Modified independence Device/Equipment : Bench Machine Operator, Sock aid Other: fww Other: fww Time [...] Required - OT : Yes Visit Requires [facility] Reporting - OT : Initial Evaluation: Report Current Status and Goal Status Occupational Therapy Evaluation Minutes : 20 minute(s) OT Evaluation Charge : Yes OT Number of Patient Visits : 1 OT Visit, Inpatient : Yes MUU BROWN 05/17/2013 10:20 CDT Modifiers OT Self-Care [...] UMU BROWN Chu 05/17/2013 13:50 CDT Source: [employer] Document Id: [id number] CDT!132 Jordi Wilson M.D. - 05/15/2013 8:49 PM CDT [id number] CHIEF COMPLAINT/REASON FOR ADMISSION Fall with left-sided ribcage pain, back, and left-sided hip pain. HISTORY OF PRESENT ILLNESS This 78-year-old female is admitted by [facility]. Villagomez via the emergency room with complaints of a fall. Patient is complaining of left-sided ribcage pain. Patient initially had a fall when she was staying in a motel in [place] on May 12. She slipped on the ceramic tile floor while getting out of the tub due to the wet floor. She hit the toilet with her left back. She injured the left side of the chest and shoulder. She was seen in [place] in the emergency room and has had x-raystaken of the chest, hip and lumbar spine. She was diagnosed with rib fracture. She was sent home on Percocet and ibuprofen. She was in a significant amount of pain and was not able to attend her [employer] graduation ceremony. She decided to drive back in an [facility] over the course [facility]. She also had to [...] WILSON MD On: 05/17/2013 09:10 AM Source: [facility] [employer] Document Id: [id number] documented in this encounter Procedure Notes Melvin [...] SINGER RN - 05/18/2013 14:58 CDT Source: [facility] POWERCHART Document Id: [id number] CDT!8 Melvin Francis R.N. - 05/18/2013 2:54 [...] SINGER RN - 05/18/2013 14:54 CDT Source: [employer] Document Id: [id number] CDT!7 Melvin Francis R.N. - 05/18/2013 9:00 AM CDT Urinary Catheter Insertion/Discontinuation Urinary Catheter Insertion/Discontinuation Entered On: 05/18/2013 10:07 CDT Performed On: 05/18/2013 9:00 CDT by MELVIN SINGER RN Urinary Catheter Urinary Catheter Activity Type : Discontinue Urinary Catheter Insertion Site : Urethral Urinary Catheter Size : 16 [place] Urinary Catheter Type : Indwelling/Continuous Date/Time Catheter Discontinued : 05/18/2013 9:00 CDT Urinary Catheter Balloon Inflation : 10 mL sterile water Urinary Catheter Drainage System : Dependent drainage bag Urinary Catheter Procedure Response : Expected Urinary Catheter Procedure Tolerance : Good MELVIN SINGER RN - 05/18/2013 10:07 CDT Source: [employer] Document Id: [id number] CDT!11 Chung Richardson R.N. - 05/16/2013 6:45 PM CDT Pulse Oximetry Pulse Oximetry Entered On: 05/16/2013 18:50 CDT Performed On: 05/16/2013 18:45 CDT by CHUNG RICHARDSON RN Pulse Oximetry SpO2 : 96 % Oxygen Saturation Monitoring Frequency : Continuous Saturation Probe Site : Hand, right Oxygen Therapy : Room air CHUNG RICHARDSON RN - 05/16/2013 18:50 CDT Source: [facility] [employer] Document Id: [id number] CDT!6 documented in this encounter Nursing Notes [...] SINGER RN On: 05/18/2013 02:57 PM Source: [employer] Document Id: [id number] Yeimy Lang R.N. - 05/18/2013 1:21 PM [...] LANG RN - 05/18/2013 13:21 CDT Source: [facility] [employer] Document Id: [id number] CDT!4 Melvin Francis R.N. - 05/18/2013 7:15 AM CDT PRN Response PRN Response Entered On: 05/18/2013 10:09 CDT Performed On: 05/18/2013 7:15 CDT by MELVIN SINGER RN PRN Medication Effectiveness Evaluation PRN Medication Effective : Yes (Comment: patient sleeping at time of assessment [MELVIN SINGER RN - 05/18/2013 10:08 CDT] ) MELVIN SINGER RN - 05/18/2013 10:08 CDT Source: [facility] [employer] Document Id: [id number] CDT!3 Anju Moreno R.N. - 05/18/2013 3:37 AM CDT PRN Response PRN Response Entered On: 05/18/2013 3:37 CDT Performed On: 05/18/2013 3:37 CDT by ANJU MORENO RN PRN Medication Effectiveness Evaluation PRN Medication Effective : Other: patient sleeping ANJU MORENO RN - 05/18/2013 3:37 CDT Source: [employer] Document Id: [id number] CDT!3 Anju Moreno R.N. - 05/18/2013 1:31 AM CDT PRN Response PRN Response Entered On: 05/18/2013 1:31 CDT Performed On: 05/18/2013 1:31 CDT by ANJU MORENO RN PRN Medication Effectiveness Evaluation PRN Medication Effective : Other: patient sleeping ANJU MORENO RN - 05/18/2013 1:31 CDT Source: [facility] [employer] Document Id: [id number] CDT!3 Linda Pal L.S.W. - 05/18/2013 12:00 AM CDT [id number] SCARFER NOTE Today, May 18, 2013, this Transcription Specialist visited with the patient as she was getting ready to return home. The patient did not request any resources for future use or for any services to be set up for her. She reviewed and signed the Medicare Rights form and received a copy. She did not have any questions or concerns for this Transcription Specialist. Rick Dykes/[facility] Electronically Signed By: LINDA PAL On: 05/18/2013 02:48 PM Modified by and Electronically Signed by: LINDA PAL On: 05/18/2013 02:48 PM Source: [facility] MH[employer] Document Id: [id number] Rina Montoya R.N. - 05/17/2013 2:30 PM CDT PRN Response PRN Response Entered On: 05/17/2013 17:58 CDT Performed On: 05/17/2013 14:30 CDT by RINA MONTOYA RN PRN Medication Effectiveness Evaluation PRN Medication Effective : Yes (Comment: patient was sleeping at time of prn assesment [RINA MONTOYA RN - 05/17/2013 17:57 CDT] ) RINA MONTOYA RN - 05/17/2013 17:57 CDT Source: [facility] POWERCHART Document Id: [id number] CDT!3 Linda Pal L.SAdalid - 05/17/2013 12:50 PM CDT Resource Coordinator/Discharge Planning Resource Coordinator/Discharge Planning Entered On: 05/17/2013 12:51 CDT Performed On: 05/17/2013 12:50 CDT by LINDA PAL Assessment Resource Coordinator Needs : No needs at this time Follow in Interdisciplinary Team : Yes Referral : Physician Information Obtained From : Patient Languages : Beninese Program Trainer Needed : No Mental Status : Alert [...] LINDA PAL - 05/17/2013 12:50 CDT Source: [employer] Document Id: [id number] CDT!29 Rina Montoya R.N. - 05/17/2013 8:19 AM CDT PRN Response PRN Response Entered On: 05/17/2013 10:22 CDT Performed On: 05/17/2013 8:19 CDT by RINA MONTOYA RN PRN Medication Effectiveness Evaluation PRN Medication Effective : Yes RINA MONTOYA RN - 05/17/2013 10:22 CDT Source: [employer] Document Id: [id number] CDT!3 Rina Montoya R.N. - 05/17/2013 7:38 AM CDT PRN Response PRN Response Entered On: 05/17/2013 11:21 CDT Performed On: 05/17/2013 7:38 CDT by RINA MONTOYA RN PRN Medication Effectiveness Evaluation PRN Medication Effective : Yes Post Medication Pain Assessment : 5 RINA MONTOYA RN - 05/17/2013 11:21 CDT Source: [employer] Document Id: [id number] CDT!4 Nanci Ventura R.N. - 05/17/2013 1:13 [...] NANCI VENTURA - 05/17/2013 1:13 CDT Source: [employer] Document Id: [id number] CDT!6 Linda Pal L.S.W. - 05/17/2013 12:00 AM CDT [id number] SOCIAL WORK Today, May 17, 2013, this Transcription Specialist visited with the patient. She had been [...] have any questions or concerns for this Transcription Specialist. Rick Dykes/[employer]y Electronically Signed By: LINDA PAL On: 05/18/2013 07:27 AM Modified by and Electronically Signed by: LINDA PAL On: 05/18/2013 07:27 AM Source: [facility] [employer] Document Id: [id number] Chung Richardson R.N. - 05/16/2013 6:50 PM CDT PRN Response PRN Response Entered On: 05/16/2013 18:50 CDT Performed On: 05/16/2013 18:50 CDT by CHUNG RICHARDSON RN PRN Medication Effectiveness Evaluation PRN Medication Effective : Yes (Comment: Patient sleeping [CHUNG RICHARDSON RN - 05/16/2013 18:50 CDT] ) CHUNG RICHARDSON RN - 05/16/2013 18:50 CDT Source: [employer] Document Id: [id number] CDT!3 Chung Richardson R.N. - 05/16/2013 6:15 PM CDT PRN Response PRN Response Entered On: 05/16/2013 18:31 CDT Performed On: 05/16/2013 18:15 CDT by CHUNG RICHARDSON RN PRN Medication Effectiveness Evaluation PRN Medication Effective : No Post Medication Pain Assessment : 6 CHUNG RICHARDSON RN - 05/16/2013 18:30 CDT Source: [employer] Document Id: [id number] CDT!4 Chung Richardson R.N. - 05/16/2013 5:50 PM CDT PRN Response PRN Response Entered On: 05/16/2013 17:27 CDT Performed On: 05/16/2013 17:50 CDT by CHUNG RICHARDSON RN PRN Medication Effectiveness Evaluation PRN Medication Effective : Yes Post Medication Pain Assessment : 4 CHUNG RICHARDSON RN - 05/16/2013 17:27 CDT Source: [employer] Document Id: [id number] CDT!4 Chung Richardson R.N. - 05/16/2013 2:10 PM CDT PRN Response PRN Response Entered On: 05/16/2013 17:26 CDT Performed On: 05/16/2013 14:10 CDT by CHUNG RICHARDSON RN PRN Medication Effectiveness Evaluation PRN Medication Effective : Yes (Comment: Patient sleeping. [CHUNG RICHARDSON RN - 05/16/2013 17:26 CDT] ) Post Medication Pain Assessment : 3 CHUNG RICHARDSON RN - 05/16/2013 17:26 CDT Source: [employer] Document Id: [id number] CDT!4 Chung Richardson R.N. - 05/16/2013 12:00 [...] RICHARDSON RN - 05/16/2013 13:32 CDT Source: [employer] Document Id: [id number] CDT!10 Anisha Brower R.N. - 05/16/2013 5:00 AM CDT PRN Response PRN Response Entered On: 05/16/2013 5:07 CDT Performed On: 05/16/2013 5:00 CDT by ANISHA BROWER RN PRN Medication Effectiveness Evaluation PRN Medication Effective : Other: pt sleeping ANISHA BROWER RN - 05/16/2013 5:07 CDT Source: [employer] Document Id: [id number] CDT!3 Anisha Brower R.N. - 05/16/2013 12:20 AM CDT PRN Response PRN Response Entered On: 05/16/2013 0:24 CDT Performed On: 05/16/2013 0:20 CDT by ANISHA BROWER RN PRN Medication Effectiveness Evaluation PRN Medication Effective : Yes Post Medication Pain Assessment : 4 ANISHA BROWER RN - 05/16/2013 0:23 CDT Source: [employer] Document Id: [id number] CDT!4 Anisha Brower R.N. - 05/15/2013 9:13 PM CDT Pneumonia Immunization Assessment Pneumonia Immunization Assessment Entered On: 05/15/2013 21:13 CDT Performed On: 05/15/2013 21:13 CDT by ANISHA BROWER RN Pneumonia Protocol Pneumococcal Vaccine Exclusions : Patient has received the vaccine after age of 65 Pneumococcal Exclusion Candidate Status : No ANISHA BROWER RN - 05/15/2013 21:13 CDT [facility] Document Id: [id number] CDT!4 documented in this encounter Miscellaneous Notes [...] SINGER RN - 05/19/2013 14:12 CDT Source: [employer] Document Id: [id number] CDT!4 Miscellaneous - Melvin Francis R.N. - [...] ICU : S1S2 Nail Bed Color : [place] Capillary Refill : Less than 2 seconds [...] : Steady Swallowing Difficulty/Aspiration Risk : None MELVNI SINGER - 05/18/2013 11:02 CDT Nabil Coma Eye Opening Response Nabil : Spontaneously Best Verbal Response Nabil : Oriented Best Motor Response Weston : Obeys simple commands [place]on Coma Score : 15 MELVIN SINGER 05/18/2013 [...] : Left Intensity : 5 MELVIN SINGER [facility] 05/18/2013 11:02 CDT Gastrointestinal GI Patient Stated [...] Integrity : Intact Mucous Membrane Color : [place] Mucous Membrane Description : Moist MELVIN SINGER [...] SINGER RN - 05/18/2013 11:02 CDT Source: [facility] [employer] Document Id: [id number] CDT!122 Miscellaneous - Melvin Francis R.N. - [...] SINGER RN - 05/18/2013 10:09 CDT Source: [facility] [employer] Document Id: [id number] CDT!13 Miscellaneous - Anju Moreno R.N. - [...] : Regular Heart Sounds ICU : S1S2 [facility] Bed Color : [place] Capillary Refill : Less than 2 seconds [...] Integrity : Intact Mucous Membrane Color : [place] Mucous Membrane Description : Moist ANJU MORENO [...] Howard RN - 05/17/2013 19:46 CDT Source: [employer] Document Id: [id number] CDT!105 [place] - Anju Moreno R.N. - [...] MORENO RN - 05/17/2013 19:41 CDT Source: [facility] POWERCHART Document Id: [id number] CDT!11 [place] - Rina Montoya R.N. - [...] : Patent Respiratory Detailed Assessment : Yes RNIA MONTOYA RN - 05/17/2013 11:05 CDT Resp Detailed Breath Sounds Detailed Assessment Grid BUL : Clear BLL : Clear FANI : Clear RUL : Clear RML : Clear LLL : Diminished, Fine crackles RLL : Clear RINA MONTOYA RN - 05/17/2013 11:05 CDT Cardiovascular CV Patient Stated Symptoms : None Heart Rhythm : Regular Nail Bed Color : [place] Capillary Refill : Less than 2 seconds [...] Response Nabil : Spontaneously Best Verbal Response Weston : Oriented Best Motor Response Nabil : Obeys simple commands Weston Coma Score : 15 RINA MONTOYA RN [...] : Urethral Urinary Catheter Size : 16 [place] Urinary Catheter Type : Indwelling/Continuous Urinary Catheter Balloon Inflation : 10 mL sterile water TAMERA MONTOYAJose A Howard RN - 05/17/2013 11:05 CDT Integumentary Integumentary Patient Stated Symptoms : Bruising Skin Turgor : Elastic Skin Integrity : Intact Mucous Membrane Color : [place] Mucous Membrane Description : Moist THERESE RINA [...] : Yes Mobility Status : Moderate assistance IRNA MONTOYA RN - 05/17/2013 11:05 CDT [facility] Document Id: [id number] CDT!134 Miscellaneous - Nanci Ventura R.N. - [...] NANCI VENTURA - 05/17/2013 1:24 CDT [facility] Document Id: [id number] CDT!4 Miscellaneous - Nanci Ventura R.N. - [...] Response Nabil : Spontaneously Best Verbal Response Weston : Oriented Best Motor Response Nabil : Obeys simple commands Weston Coma Score : 15 NANCI VENTURA 05/17/2013 1:24 CDT Oral Assessment Lips : Smooth, pink, moist, intact Gingiva : [place], smooth, moist, intact Tongue : Smooth, pink, [...] Integrity : Intact Mucous Membrane Color : [place] Mucous Membrane Description : Moist NANCI VENTURA [...] NANCI VENTURA - 05/17/2013 1:24 CDT Source: [employer] Document Id: [id number] CDT!139 Miscellaneous - Chung Richardson R.N. - [...] Rhythm : Regular Nail Bed Color : [place] Skin Color : [place] Skin Description : Normal Skin Temperature : [...] RICHARDSON Emilio LANG - 05/16/2013 17:27 CDT Weston Coma Eye Opening Response Weston : Spontaneously Best Verbal Response Nabil : Oriented Best Motor Response Weston : Obeys simple commands Nabil Coma Score [...] : Urethral Urinary Catheter Size : 16 [place] Urinary Catheter Type : Indwelling/Continuous Urinary Catheter Balloon Inflation : 10 mL sterile water CHUNG RICHARDSON RN - 05/16/2013 17:27 CDT Integumentary Skin Abnormality/Location Grid Location : Upper back Laterality : Left, Lateral, Posterior Abnormality : Bruising LAYLA RICHARDSONLE Emilio LANG - 05/16/2013 17:27 CDT Skin Color : [place] Skin Description : Normal Skin Temperature : [...] RICHARDSON RN - 05/16/2013 17:27 CDT Source: [facility] POWERCHART Document Id: [id number] CDT!104 Miscellaneous - Chung Richardson R.N. - [...] ICU : S1S2 Nail Bed Color : [place] Capillary Refill : Less than 2 seconds Edema Assessment : Yes Salvatore's Sign : Negative CHUNG RICHARDSON Emilio LANG - 05/16/2013 12:15 CDT Pulses Grid Radial Pulse, Left : 2+ Normal Radial Pulse, Right : 2+ Normal Dorsalis Pedis Pulse, Left : 2+ Normal Dorsalis Pedis Pulse, Right : 2+ Normal CHUNG RICHARDSON Emilio LANG - 05/16/2013 12:15 CDT Skin Color : [place] Skin Description : Normal Skin Temperature : [...] 12:15 CDT Nabil Coma Eye Opening Response Weston : Spontaneously Best Verbal Response Nabil : Oriented Best Motor Response Nabil : Obeys simple commands Weston Coma Score : 15 RICHARDSONLAYLAAGNES LANG - [...] : Urethral Urinary Catheter Size : 16 [place] Urinary Catheter Type : Indwelling/Continuous Urinary Catheter [...] - 05/16/2013 12:57 CDT Skin Color : [place] Skin Description : Normal Skin Temperature : [...] RICHARDSON RN - 05/16/2013 12:57 CDT Source: [employer] Document Id: [id number] CDT!5 Miscellaneous - Chung Richardson R.N. - [...] RICHARDSON RN - 05/16/2013 12:03 CDT Source: [employer] Document Id: [id number] CDT!22 Miscellaneous - Anisha Brower RChelsey - 05/15/2013 10:00 PM CDT Adult Pain Assessment Adult Pain Assessment Entered On: 05/15/2013 22:56 CDT Performed On: 05/15/2013 22:00 CDT by ANISHA BROWER RN Pain Pain Assessment Grid Pain 1 Location : Hip Laterality : Left Intensity : 4 Comment : declines pain meds at this time ANISHA BROWER RN - 05/15/2013 22:56 CDT Source: [employer] Document Id: [id number] CDT!8 Miscellaneous - Anisha Brower R.N. - [...] ICU : S1S2 Nail Bed Color : [place] Capillary Refill : Less than 2 seconds [...] ANISHA BROWER RN - 05/15/2013 22:25 CDT Weston Coma Eye Opening Response Weston : Spontaneously Best Verbal Response Nabil : Oriented Best Motor Response Weston : Obeys simple commands Nabil Coma Score [...] : Urethral Urinary Catheter Size : 16 [place] Urinary Catheter Type : Indwelling/Continuous Urinary Catheter Balloon Inflation : 10 mL sterile water Urinary Catheter Secured : Leg strap Urinary Catheter Drainage System : Dependent drainage bag MENDEZ BROWERNadeen Vaughn RN - 05/15/2013 22:25 CDT Integumentary Integumentary Patient Stated Symptoms : None Skin Turgor : Elastic Skin Integrity : Intact Mucous Membrane Color : [place] Mucous Membrane Description : Moist MENDEZ BROWERN [...] BROWER RN - 05/15/2013 22:25 CDT Source: [employer] Document Id: [id number] CDT!133 Miscellaneous - Anisha Brower R.N. - 05/15/2013 8:56 PM CDT Adult Admission History Adult Admission History Entered On: 05/15/2013 21:01 CDT Performed On: 05/15/2013 20:56 CDT by ANISHA BROWER RN General Info Preferred Name : Kathrny Admitted From : Non-Health Care Facility Point of Origin Mode of Arrival : Cart Accompanied By : Other: ER Nurse Chief Complaint : Hip Pain Preferred Communication Mode : Verbal Information Given By : Patient Languages : Beninese ANISHA BROWER RN - 05/15/2013 20:56 CDT [...] Drug Use Grid Drug Use : None ANISHA BROWER RN - 05/15/2013 20:56 CDT AUDIT [...] Regarding Hospitalization/Discharge : No Coping : Effective Orthodox Preference : Unknown ANISHA BROWER RN - [...] BROWER RN - 05/15/2013 20:56 CDT Source: [facility] POWERCHART Document Id: [id number] CDT!62 Miscellaneous - Anisha Brower R.N. - [...] BROWER RN - 05/15/2013 20:53 CDT Source: [facility] POWERCHART Document Id: [id number] CDT!5 documented in this encounter Plan of Treatment Not on filedocumented as of this encounter Visit Diagnoses Not on filedocumented in this encounter
--- OUTSIDE RECORDS SUMMARY | 2022-05-23 11:33 | XMS_ITS | Encounter Summary ---
:1935 Author Organization [facility] Address [address] [place] [address] Care Team Providers Name Role Phone Unavailable Primary Care Provider Unavailable Encounter Details Date Type Department Care Team Description 12/21/2012 Hospital Encounter HX [facility] [place] Varma, CYRIL, C.N.P., D. N.P. [address] [place] [address] (Wo rk) Social History Tobacco [...] APRN, CDannN.P. - 12/21/2012 9:48 AM CDT [id number] CHIEF COMPLAINT/REASON FOR VISIT 1. Hip pain, [...] Quiroga/tommy Electronically Signed By: ALBANIA VARMA RN, TAPE DECK INSTALLER On: 12/23/2012 05:19 PM Source: [facility] Document Id: [id number] documented in this encounter Miscellaneous Notes Miscellaneous [...] her. Thanks for the referral. From: ALBANIA VARAM RN, TAPE DECK INSTALLER To: BIANCA VILLALOBOS; Sent: 12/21/2012 16:49:34 CDT Subject: General Message Do you think she would benefit from orthotics or more supportive shoes to assist her gait and shift her weight? What and where would you recommend? She will be coming to see you soon. You fixed her right hip but now she is struggling with her left hip. Source: [facility] POWERCHART Document Id: [id number] Electronically signed by Dustin [facility] Religious Assistant [id number] at 02/11/2017 9:16 AM CDT Miscellaneous - [place] Varma APRN, C.N.P. - 12/21/2012 10:43 AM CDT Ambulatory Patient Summary [place] [id number] [facility] [place] [address] Visit Information Name: BRIANA LEON [facility] Number: [id number] Current Date: 12/21/2012 10:43:00 Physicians Attending Provider: ALBANIA VARMA RN, TAPE DECK INSTALLER Primary Care Provider: ALBANIA VARMA RN, TAPE DECK INSTALLER Your Medications Here is a list [...] No Appointments found Your Goals/Additional instructions: Source: [facility] POWERCHART Document Id: [id number] Miscellaneous - [place] Varma APRN, C.N.P. - 12/21/2012 10:42 AM CDT Ambulatory Depart Summary [address] [address] Visit Information Name: BRIANA LEON [facility] Number: [id number] Visit Date: 12/21/2012 10:42:58 Attending Provider: ALBANIA VARMA RN, TAPE DECK INSTALLER Primary Care Provider: ALBANIA VARMA RN, TAPE DECK INSTALLER BRIANA LEON has been given the [...] your provider for clarification. Additional Information: Source: [facility] POWERCH[facility] Document Id: [id number] Miscellaneous - Sujatha Batista L.P.N. - 12/21/2012 10:12 AM CDT Adult Provider Relations Coordinator Intake/History Adult Provider Relations Coordinator Intake/History Entered On: 12/21/2012 10:16 CDT Performed [...] Preferred Communication Mode : Verbal Languages : Turkmen SUJATHA BATISTA LPN - 12/21/2012 10:12 CDT [...] BATISTA LPN - 12/21/2012 10:12 CDT Source: [employer] Document Id: [id number] CDT!46 documented in this encounter Plan of Treatment Not on filedocumented as of this encounter Visit Diagnoses Not on filedocumented in this encounter
--- OUTSIDE RECORDS SUMMARY | 2022-05-23 11:33 | XMS_ITS | Encounter Summary ---
:1935 Author Organization [facility] Address [address] [place] [address] Care Team Providers Name Role Phone Unavailable Primary Care Provider Unavailable Encounter Details Date Type Department Care Team Description 07/01/2013 Hospital Encounter HX [facility] [place] Varma, CYRIL, C.N.P., D. N.P. [address] [place] [address] (Wo rk) Social History Tobacco [...] APRN, C.N.P. - 07/01/2013 1:58 PM CDT [id number] CHIEF COMPLAINT/REASON FOR VISIT 1. Pain. HISTORY [...] MarshallNDannPDann/tommy Electronically Signed By: ALBANIA VARMA RN, GIS SCIENTIST On: 07/06/2013 12:41 PM Source: [facility] GR[facility]OR[facility]NAL[facility]LY Document Id: [id number] documented in this encounter Miscellaneous Notes Miscellaneous - [place] Varma APRN, C.N.P. - 07/01/2013 2:36 PM CDT Ambulatory Patient Summary [place] [address] [place] [address] Visit Information Name: BRIANA LEON [facility] Number: [id number] Current Date: 07/01/2013 14:36:29 Physicians Attending Provider: ALBANIA VARMA RN, GIS SCIENTIST Primary Care Provider: ALBANIA VARMA RN, GIS SCIENTIST BRIANA LEON has been given the following [...] appointment detail needed. Your Goals/Additional instructions: Source: [facility] POWERCHART Document Id: [id number] Miscellaneous - [place] Varma APRN, C.N.P. - 07/01/2013 2:36 PM CDT Ambulatory Depart Summary [address] [place] [address] Visit Information Name: BRIANA LEON [facility] Number: [id number] Visit Date: 07/01/2013 14:36:28 Attending Provider: ALBANIA VARMA RN, GIS SCIENTIST Primary Care Provider: ALBANIA VARMA RN, GIS SCIENTIST BRIANA LEON has been given the following [...] your provider for clarification. Additional Information: Source: [facility] POWERCHART Document Id: [id number] Miscellaneous - Tabitha Larios L.P.N. - 07/01/2013 2:10 PM CDT Adult Accounting Associate Intake/History Adult Accounting Associate Intake/History Entered On: 07/01/2013 14:13 CDT Performed [...] Information Given By : Patient Languages : Upper Sorbian TABITHA LARIOS - 07/01/2013 14:10 CDT Subjective [...] None TABITHA LARIOS 07/01/2013 14:10 CDT [facility] Document Id: [id number] CDT!35 documented in this encounter Plan of Treatment Not on filedocumented as of this encounter Visit Diagnoses Not on filedocumented in this encounter
--- OUTSIDE RECORDS SUMMARY | 2022-05-23 11:33 | XMS_ITS | Encounter Summary ---
:1935 Author Organization [facility] Address [address] [place] [address] Care Team Providers Name Role Phone Unavailable Primary Care Provider Unavailable Encounter Details Date Type Department Care Team Description 05/26/2013 Hospital Encounter HX [facility]o kinney M.D. [address] [place] [phone] (Wo rk) Social History Tobacco Use [...] Bhakta M.D. - 05/26/2013 7:25 AM CDT [id number] CHIEF COMPLAINT/REASON FOR VISIT Follow-up dizziness and [...] coordinatedcompared to the left. She has symmetric smocker strength and lower extremity strength. I have [...] GARCIA MD On: 05/29/2013 01:17 PM Source: [facility] MHSDOLBEYNONRADSYS Document Id: [id number] documented in this encounter Miscellaneous Notes Miscellaneous - Cielo Bhakta M.D. - 05/26/2013 9:03 AM CDT Ambulatory Patient Summary [place] [address] [place] [address] Visit Information Name: BRIANA LEON [facility] Number: [id number] Current Date: 05/26/2013 09:03:03 Physicians Attending Provider: CIELO GARCIA MD Primary Care Provider: ALBANIA VARMA RN, CARTON LINER Your Medications Here is a list of [...] No Appointments found Your Goals/Additional instructions: Source: [facility] POWERCHART Document Id: [id number] Miscellaneous - Cielo Bhakta M.D. - 05/26/2013 9:03 AM CDT Ambulatory Depart Summary [address] [address] Visit Information Name: BRIANA LEON [facility] Number: [id number] Visit Date: 05/26/2013 09:03:00 Attending Provider: CIELO GARCIA MD Primary Care Provider: ALBANIA VARMA RN, CARTON LINER BRIANA LEON has been given the following [...] your provider for clarification. Additional Information: Source: [facility] POWERCHART Document Id: [id number] Miscellaneous - Erika Noonan L.P.N. - 05/26/2013 7:27 AM CDT Adult Equipment Monitor Phototypesetting Intake/History Adult Equipment Monitor Phototypesetting Intake/History Entered On: 05/26/2013 7:32 CDT Performed [...] Preferred Communication Mode : Verbal Languages : Mongolian ERIKA NOOANN LPN, RT - 05/26/2013 7:27 CDT Subjective [...] Grid Drug Use : None ERIKA NOONAN [address] RESEARCHER, RT - 05/26/2013 7:27 CDT [facility] Document Id: [id number] CDT!36 documented in this encounter Plan of Treatment Not on filedocumented as of this encounter Visit Diagnoses Not on filedocumented in this encounter
--- OUTSIDE RECORDS SUMMARY | 2022-05-23 11:33 | XMS_ITS | Encounter Summary ---
:1935 Author Organization [facility] Address [address] [place] [address] Care Team Providers Name Role Phone Unavailable Primary Care Provider Unavailable Encounter Details Date Type Department Care Team Description 12/06/2012 Hospital Encounter HX [facility] Mary Varma, CYRIL, C.N.P., D. N.P. [address] [place] [address] (Wo rk) Social History Tobacco [...] APRN, C.N.P. - 12/06/2012 10:46 AM CDT [id number] CHIEF COMPLAINT/REASON FOR VISIT Pain. HISTORY OF [...] Quiroga/bucky Electronically Signed By: MARY VARMA RN, DIRECTOR OF BUSINESS APPLICATIONS On: 12/07/2012 07:42 PM Source: [facility] MHSDOLBEYNONRADSYS Document Id: [id number] documented in this encounter Miscellaneous Notes Miscellaneous - Conversion, Historical Provider Ser - 12/08/2012 11:47 AM CDT not better Document Contains Addenda Addendum by NIMISHA RIOJAS V on 09 December 2012 08:19:16 CDT Pt updated Addendum by MARY VARMA RN, DIRECTOR OF BUSINESS APPLICATIONS on 08 December 2012 16:25:24 CDT From: MARY VARMA RN, DIRECTOR OF BUSINESS APPLICATIONS To: NIMISHA RIOJAS V; Sent: 12/08/2012 16:25:24 CDT Subject: RE: not better ordered. thanks. Addendum by NIMISHA RIOJAS V on 08 December 2012 12:23:25 CDT From: NIMISHA RIOJAS V To: MARY VARMA RN, DIRECTOR OF BUSINESS APPLICATIONS; Sent: 12/08/2012 12:23:25 CDT Subject: RE: not better Pt updated. She doesn't have any leg numbness, so you can order the PT eval Addendum by MARY VARMA RN, DIRECTOR OF BUSINESS APPLICATIONS on 08 December 2012 12:15:59 CDT From: MARY VARMA RN, DIRECTOR OF BUSINESS APPLICATIONS To: NIMISHA RIOJAS V; Sent: 12/08/2012 12:15:59 [...] NIMISHA RIOJAS V To: MARY VARMA RN, DIRECTOR OF BUSINESS APPLICATIONS; SUJATHA BATISTA LPN; Sent: 12/08/2012 11:47:02 CDT Subject: not better Pt LVM on Triage line which said she was talking with Sujatha & got disconnected. Pt reports she was seen Thursday & was to call today with update. Indicated she is not better & is so dizzy she can't get up. [phone] is her call back # Source: [facility] POWERCHART Document Id: [id number] Miscellaneous - Mary Varma APRN, C.N.P. - 12/06/2012 11:47 AM CDT Ambulatory Patient Summary [address] [address] Visit Information Name: KATHRYN LEON [facility] Number: [id number] Current Date: 12/06/2012 11:47:48 Physicians Attending Provider: MARY VARMA RN, IVANA Primary Care Provider: MARY VARMA RN, DIRECTOR OF BUSINESS APPLICATIONS Your Medications Here is a list of [...] No Appointments found Your Goals/Additional instructions: Source: [facility] POWERCHART Document Id: [id number] Miscellaneous - Mary Varma APRN, C.N.P. - 12/06/2012 11:47 AM CDT Ambulatory Depart Summary [address] [address] Visit Information Name: KATHRYN LEON [facility] Number: [id number] Visit Date: 12/06/2012 11:47:46 Attending Provider: MARY VARMA RN, DIRECTOR OF BUSINESS APPLICATIONS Primary Care Provider: MARY VARMA RN, DIRECTOR OF BUSINESS APPLICATIONS KATHRYN LEON has been given the following [...] your provider for clarification. Additional Information: Source: [facility] POWERCHART Document Id: [id number] Miscellaneous - Sujatha Batista L.PDannN. - 12/06/2012 10:54 AM CDT Adult Filter Filler Intake/History Adult Filter Filler Intake/History Entered On: 12/06/2012 10:58 CDT Performed [...] Preferred Communication Mode : Verbal Languages : Slovenian JOANNA BATISTAYUSUF Gal[place] LPN - 12/06/2012 10:54 [...] : Coffee Frequency : Weekly BATISTASUJATHA PARKER INSTRUMENTATION FITTER 12/06/2012 10:54 CDT Recreational Drug Use Grid Drug Use : None BATISTA, SUJATHA Galicia LPN 12/06/2012 10:54 CDT Allergy Allergies (Active) Glutens Estimated Onset Date: Unspecified ; Created By: PATTI ALMENDAREZ LPN; Reaction Status: Active; Category: Drug ; Substance: Glutens ; Type: Allergy ; Updated By: PATTI ALMENDAREZ LPN; Reviewed Date: 11/02/2012 11:53 ENGRAVER AUTOMATIC Nuts Estimated Onset Date: Unspecified ; Created By: PATTI ALMENDAREZ LPN; Reaction Status: Active ; Category: Food ; Substance: Nuts ; Type: Allergy ; Updated By: PATTI ALMENDAREZ LPN; Reviewed Date: 11/02/2012 11:53 ENGRAVER AUTOMATIC Source: [facility] POWERCHART Document Id: [id number] documented in this encounter Plan of Treatment Not on filedocumented as of this encounter Visit Diagnoses Not on filedocumented in this encounter
--- OUTSIDE RECORDS SUMMARY | 2022-05-23 11:34 | XMS_ITS | Encounter Summary ---
:1935 Author Organization [facility] Address [address] [place] [address] Care Team Providers Name Role Phone Unavailable Primary Care Provider Unavailable Encounter Details Date Type Department Care Team Description 11/04/2010 Hospital Encounter [facility] [place] Varma APRN, C.N.P., D. N.P. [address] [place] [address] (Wo rk) Social History Tobacco [...] APRN, C.N.P. - 11/04/2010 12:00 AM CST [id number] CHIEF COMPLAINT/REASON FOR VISIT 1. Is recheck [...] is much improved. She is leaving for [place] and is somewhat concerned in regards to [...] in mid November from her vacation in [place]. She is to seek medical attention immediately if any of her symptoms progress or worsen. 2. Is immunization need she is overdue for tetanus. We did go ahead and update that today. Answered all questions. Did give her a patient summary for her travels to [place]. #1 Patient Education Ready to learn No apparent learning barriers were identified Learning preferences include listening Explained diagnosis and treatment plan Patient expressed understanding of the content [place] Varma N.P. /heather Electronically Signed By: ALBANIA VARMA On: 11/04/2010 01:51 Source: [facility] GRZEGORZSDOLBEYNNIKKO Document Id: [id number] RANCE UNDERWRITING ASSISTANT documented in this encounter Miscellaneous Notes Miscellaneous - [place] Varma APRN, C.N.P. - 11/04/2010 9:56 AM CST Ambulatory Patient Summary [facility] - [place] [address] [place] [address] Visit Information Name: BRIANA LEON Current Date: [...] No Appointments found Your Goals/Additional instructions: Source: [facility] POWERCHART Document Id: [id number] Electronically signed by Dustin, [facility] Pit Worker Power Shovel [id number] at 02/15/2017 12:11 PM CDT Miscellaneous - [place] Varma APRN, C.N.P. - 11/04/2010 9:56 AM CST Ambulatory Depart Summary [facility] - [address] [place] [address] Visit Information Name: BRIANA LEON Current Date: 11/04/2010 09:55:59 Primary Care Provider: ALBANIA VARMA BRIANA LEON has been given the following [...] [facility] POWERCHART Document Id: [id number] Electronically signed by Dustin [facility] Pit Worker Power Shovel [id number] at 02/15/2017 12:11 PM CDT Miscellaneous - Erica Brandon LDannPDannNDann - 11/04/2010 8:55 AM CST Adult Hogshead Filler Intake/History Adult Hogshead Filler Intake/History Entered On: 11/04/2010 8:58 INSURANCE UNDERWRITING ASSISTANT Performed On: 11/04/2010 8:55 INSURANCE UNDERWRITING ASSISTANT by ERICA BRANDON LPN Intake Chief Complaint: [...] 30kg/m2 ERICA BRANDON LPN - 11/04/2010 8:55 INSURANCE UNDERWRITING ASSISTANT Subjective Pain Symptoms: No ERICA BRANDON LPN - 11/04/2010 8:55 INSURANCE UNDERWRITING ASSISTANT Dependent Habits Tobacco Use/Currently Using: No Tobacco Use/Last 12 months: No Alcohol Use: No ERICA BRANDON LPN - 11/04/2010 8:55 INSURANCE UNDERWRITING ASSISTANT Caffeine Use Grid Caffeine Use: Current Type: Coffee Frequency: Weekly ERICA BRANDON LPN - 11/04/2010 8:55 INSURANCE UNDERWRITING ASSISTANT Allergies Allergies (Active) Glutens Estimated Onset Date: Unspecified ; Created By: PATTI ALMENDAREZ LPN; Reaction Status: Active; Category: Drug ; Substance: Glutens ; Type: Allergy ; Updated By: PATTI ALMENDAREZ LPN; Reviewed Date: 10/28/2010 15:44 INSURANCE UNDERWRITING ASSISTANT Nuts Estimated Onset Date: Unspecified ; Created By: PATTI ALMENDAREZ LPN; Reaction Status: Active ; Category: Food ; Substance: Nuts ; Type: Allergy ; Updated By: PATTI ALMENDAREZ LPN; Reviewed Date: 10/28/2010 15:44 INSURANCE UNDERWRITING ASSISTANT Source: [facility] POWERCHART Document Id: [id number] INSURANCE UNDERWRITING ASSISTANT!27 RANCE UNDERWRITING ASSISTANT documented in this encounter Plan of Treatment Not on filedocumented as of this encounter Visit Diagnoses Not on filedocumented in this encounter
--- OUTSIDE RECORDS SUMMARY | 2022-05-23 11:34 | XMS_ITS | Encounter Summary ---
:1935 Author Organization [facility] Address [address] [place] [address] Care Team Providers Name Role Phone Unavailable Primary Care Provider Unavailable Encounter Details Date Type Department Care Team Description 10/15/[address] [facility] Sylvester Zamorano III, M.D. [address] [place] [phone] (Wo rk) Social History Tobacco Use Types Packs/Day Years Used Date Smoking Tobacco: Never Assessed Sex Assigned at Date Recorded Not on file documented as of this encounter Last Filed Vital Signs Vital Sign Reading Time Taken Comments Blood Pressure 120/64 10/15/2011 12:57 PM GUIDE TRAVEL Pulse 80 10/15/2011 12:57 PM GUIDE TRAVEL Temperature - - Respiratory Rate 16 10/15/2011 12:57 PM GUIDE TRAVEL Oxygen Saturation - - Inhaled Oxygen Concentration - - Weight 75.6 kg (166 lb 10.7 oz) 10/15/2011 12:57 PM GUIDE TRAVEL Height - - Body Mass Index - [...] Zamorano M.D. - 10/15/2011 12:00 AM CST [id number] CHIEF COMPLAINT/REASON FOR VISIT Right hip pain. [...] back in about a week for followup. Earle Zamorano III, M.D. / Electronically Signed By: EARLE ZAMORANO III, MD On: 10/22/2011 08:13 AM Source: [facility] MHSDOLBEYNONRADSYS Document Id: [id number] E TRAVEL documented in this encounter Miscellaneous Notes Miscellaneous - Earle Zamorano M.D. - 10/15/2011 1:24 PM CST Ambulatory Patient Summary [address] [address] Visit Information Name: BRIANA LEON Current Date: 10/15/2011 13:24:52 Primary Care Provider: ALBANIA VARMA RN, DRUPAL DEVELOPER Your Medications Here is a list of [...] cap(s) at bedtime Oral as directed ID [id number] fluticasone nasal (Flonase 0.05 mg/inh nasal spray) [...] Date Time Location Reason Provider 10/20/2011 09:15 [facility] leg pain [place] Lu Your Goals/Additional instructions: Source: [facility] POWERCHART Document Id: [id number] E TRAVEL Miscellaneous - Earle Zamorano M.D. - 10/15/2011 1:24 PM CST Ambulatory Depart Summary [address] [address] Visit Information Name: BRIANA LEON Current Date: 10/15/2011 13:24:50 Attending Provider: EARLE ZAMORANO III, MD Primary Care Provider: ALBANIA VARMA RN, DRUPAL DEVELOPER BRIANA LEONERINE has been given the following [...] cap(s) at bedtime Oral as directed ID [id number] fluticasone nasal (Flonase 0.05 mg/inh nasal spray) [...] to the patient and/or family, guardian/caregiver. Source: [facility] POWERCHART Document Id: [id number] E TRAVEL Miscellaneous - Ana Hoang L.PChelsey - 10/15/2011 1:03 PM CST Health Assessment Health Assessment Entered On: 10/15/2011 13:04 GUIDE TRAVEL Performed On: 10/15/2011 13:03 GUIDE TRAVEL by ANA HOANG LPN Health Assessment Complete Health Assessment Complete or Modified : Annual Health Assessment Annual Health Assessment Completed : Yes ANA HOANG LPN - 10/15/2011 13:03 GUIDE TRAVEL Nutrition Nutrition Risk Factors by History Adult : None ANA HOANG LPN - 10/15/2011 13:03 GUIDE TRAVEL Functional Current Daily Living Assistance : None ANA HOANG LPN - 10/15/2011 13:03 GUIDE TRAVEL Dependent Habits Tobacco Use/Currently Using : No Exposure to Tobacco Smoke : Care provider denies smoking in home Smoking Status : Never smoker ANA HOANG LPN - 10/15/2011 13:03 GUIDE TRAVEL Caffeine Use Grid Caffeine Use : Current Type : Coffee Frequency : Weekly ANA HOANG LPN - 10/15/2011 13:03 GUIDE TRAVEL Recreational Drug Use Grid Drug Use : None ANA HOANG LPN - 10/15/2011 13:03 GUIDE TRAVEL Psychosocial Domestic Abuse Concerns : None ANA HOANG LPN - 10/15/2011 13:03 GUIDE TRAVEL Advance Directive Advanced Directives : No Advance Directive Additional Information : Yes ANA HOANG LPN - 10/15/2011 13:03 GUIDE TRAVEL Educ Needs Learning Style Preference Adult Grid Patient : Printed materials, Verbal explanation Family : None ANA HOANG LPN - 10/15/2011 13:03 GUIDE TRAVEL Source: [facility] [employer]Angel Document Id: [id number] GUIDE TRAVEL!29 E TRAVEL Miscellaneous - Ana Hoang L.P.NDann - 10/15/2011 12:57 PM CST Adult Occupational Therapy Co Director Intake/History Adult Occupational Therapy Co Director Intake/History Entered On: 10/15/2011 13:03 GUIDE TRAVEL Performed On: 10/15/2011 12:57 GUIDE TRAVEL by ANA HOANG LPN Intake Chief Complaint [...] Standing scale Dosing Weight Clinic : 75.60kg ANA HOANG LPN - 10/15/2011 12:57 GUIDE TRAVEL Subjective Pain Symptoms : Yes ANA HOANG LPN - 10/15/2011 12:57 GUIDE TRAVEL Pain Pain Assessment Grid Pain 1 Location : Hip Laterality : Right Intensity : 6 ANA HOANG LPN - 10/15/2011 12:57 GUIDE TRAVEL Dependent Habits Tobacco Use/Currently Using : No Exposure to Tobacco Smoke : Care provider denies smoking in home Smoking Status : Never smoker ANA HOANG LPN - 10/15/2011 12:57 GUIDE TRAVEL Caffeine Use Grid Caffeine Use : Current Type : Coffee Frequency : Weekly ANA HOANG LPN - 10/15/2011 12:57 GUIDE TRAVEL Recreational Drug Use Grid Drug Use : None ANA HOANG LPN - 10/15/2011 12:57 GUIDE TRAVEL Allergy Allergies (Active) Glutens Estimated Onset Date: Unspecified ; Created By: PATTI ALMENDAREZ LPN; Reaction Status: Active; Category: Drug ; Substance: Glutens ; Type: Allergy ; Updated By: PATTI ALMENDAREZ LPN; Reviewed Date: 10/15/2011 12:54 GUIDE TRAVEL Nuts Estimated Onset Date: Unspecified ; Created By: PATTI ALMENDAREZ LPN; Reaction Status: Active ; Category: Food ; Substance: Nuts ; Type: Allergy ; Updated By: PATTI ALMENDAREZ LPN; Reviewed Date: 10/15/2011 12:54 GUIDE TRAVEL Source: [facility] POWERCHART Document Id: [id number] GUIDE TRAVEL!35 E TRAVEL documented in this encounter Plan of Treatment Not on filedocumented as of this encounter Visit Diagnoses Not on filedocumented in this encounter
--- OUTSIDE RECORDS SUMMARY | 2022-05-23 11:34 | XMS_ITS | Encounter Summary ---
:1935 Author Organization [facility] Address [address] [place] [address] Care Team Providers Name Role Phone Unavailable Primary Care Provider Unavailable Encounter Details Date Type Department Care Team Description 01/21/2011 - Hospital Encounter HX [facility] Mary Alvarez, 10/06/2011 [place] CYRIL C.N.PDann, D.N.P. [address] [place] [phone] Social History Tobacco Use Types Packs/Day [...] Villalobos, P.T. - 01/30/2011 12:00 AM CDT [id number] TELEPHONE CONVERSATION I talked with patient, she [...] FAVIOLA VILLALOBOS On: 02/03/2011 09:06 AM Source: [facility] MHSDOLBEYNONRADSYS Document Id: [id number] Mary Varma APRN, C.N.PDann - 01/21/2011 12:00 AM CDT [id number] CHIEF COMPLAINT/REASON FOR VISIT 1. ER followup. [...] taking to [facility] ER for further evaluation via ambulance. [...] /joby Electronically Signed By: MARY VARMA RN, LEAD RELAY TESTER On: 01/24/2011 03:57 PM Source: [facility] MHSDOLBEYNONRADSYS Document Id: [id number] documented in this encounter Miscellaneous Notes Miscellaneous - Jessie Chapa L.P.NDann - 02/04/2011 9:33 AM CDT Adult Conservator Artifacts Intake/History Adult Conservator Artifacts Intake/History Entered On: 02/04/2011 9:35 CDT Performed [...] LPN; Reviewed Date: 02/04/2011 9:32 CDT Source: [facility] POWERCHART Document Id: [id number] CDT!27 Miscellaneous - Mary Varma APRN, C.N.P. - 01/21/2011 10:42 AM CDT Ambulatory Patient Summary [facility] - [id number] [place] [address] Visit Information Name: KATHRYN LEON Current Date: 01/21/2011 10:42:18 Primary Care Provider: MARY VARMA RN, LEAD RELAY TESTER Your Medications Here is a list of [...] Appointments found Your Goals/Additional instructions: Source: [facility] POWERCHART Document Id: [id number] Miscellaneous - Mary Varma APRN, C.N.P. - 01/21/2011 10:42 AM CDT Ambulatory Depart Summary [facility] - [address] [address] Visit Information Name: KATHRYN LEON Current Date: 01/21/2011 10:42:16 Primary Care Provider: MARY VARMA RN, LEAD RELAY TESTER KATHRYN LEON has been given the following [...] to the patient and/or family, guardian/caregiver. Source: [facility] POWERCHART Document Id: [id number] Miscellaneous - Jessie Chapa L.P.N. - 01/21/2011 10:08 AM CDT Health Assessment Health Assessment Entered On: 01/21/2011 10:09 CDT Performed On: 01/21/2011 10:08 CDT by JESSIE WEBB LPN Nutrition Nutrition Risk Factors by History Adult: None JESSIE WEBB LPN - 01/21/2011 10:08 CDT Functional Current Daily Living Assistance: None JESSIE WEBB LPN - 01/21/2011 10:08 CDT Dependent Habits Tobacco Use/Currently Using: No JESSIE WEBB LPN - 01/21/2011 10:08 CDT Caffeine Use [...] WEBB LPN - 01/21/2011 10:08 CDT Source: [facility] VerdeecoCHART Document Id: [id number] CDT!26 Miscellaneous - Jessie Chapa LDannP.NDann - 01/21/2011 10:05 AM CDT Adult Conservator Artifacts Intake/History Adult Conservator Artifacts Intake/History Entered On: 01/21/2011 10:08 CDT Performed [...] LPN; Reviewed Date: 01/21/2011 10:02 CDT [facility] Document Id: [id number] CDT!32 documented in this encounter Plan of Treatment Not on filedocumented as of this encounter Visit Diagnoses Not on filedocumented in this encounter
--- OUTSIDE RECORDS SUMMARY | 2022-05-23 11:34 | XMS_ITS | Encounter Summary ---
:1935 Author Organization [facility] Address [address] [place] [address] Care Team Providers Name Role Phone Unavailable Primary Care Provider Unavailable Encounter Details Date Type Department Care Team Description 01/28/2012 - Hospital Encounter HX [facility] [place] Varma, 04/19/2012 [employer] NAM, C.N.P., D.N.P. [address] [place] [phone] Social History Tobacco Use Types Packs/Day Years Used Date Smoking Tobacco: Never Assessed Sex Assigned at Date Recorded Not on file documented as of this encounter Discharge Summaries Bianca Villalobos P.T. - 04/19/2012 12:00 AM CDT [id number] DISCHARGE SUMMARY Patient was not seen on this date. Patient was evaluated and treated times one treatment session forvertigo. Her plan of care included COIL ASSEMBLER maneuvers and patient education in home instruction. Patient achieved goals and was discharged due to symptom resolution. Bianca Villalobos D.P.T./tommy Electronically Signed By: BIANCA VILLALOBOS On: 06/21/2012 07:51 AM Source: [facility] MHSDOLBEYNONRADSYS Document Id: [id number] Bianca Villalobos P.T. - 04/09/2012 12:00 AM CDT [id number] DISCHARGE SUMMARY Treatment was not performed on [...] BIANCA VILLALOBOS On: 06/21/2012 07:51 AM Source: [facility] MHSDOLBEYNONRADSYS Document Id: [id number] documented in this encounter Medications at Time [...] OT Daily Note Entered On: 07/30/2012 15:52 DREDGE OPERATOR SUPERVISOR Performed On: 07/30/2012 15:34 DREDGE OPERATOR SUPERVISOR by NAYA PAGAN Goals Review OT Goals Reviewed : Goals reviewed and unchanged NAYA PAGAN - 07/30/2012 15:34 DREDGE OPERATOR SUPERVISOR General Info Reason for Referral to OT : General weakness Pain Symptoms : No Weight Bearing : Toe-Touch weight bearing General Mode of Communication : Verbal NAYA PAGAN - 07/30/2012 15:34 DREDGE OPERATOR SUPERVISOR Treatment OT ADL Training Provided : Yes [...] of activity NAYA PAGAN - 07/30/2012 15:34 DREDGE OPERATOR SUPERVISOR ADL Basic Activities of Daily Living Grid Lower Extremity Dressing Assist Level : Modified independent Device/Equipment : Sock aid NAYA PAGAN - 07/30/2012 15:34 DREDGE OPERATOR SUPERVISOR Additional ADL Comments : Patient was able to use the sock aid with set up today; no cues necessary just placement and review NAYA PAGAN - 07/30/2012 15:34 DREDGE OPERATOR SUPERVISOR Ther Activities/Exercise OT Therapeutic Exercises : General strengthening exercises OT Exercises Performed : Left upper extremity, Right upper extremity NAYA PAGAN - 07/30/2012 15:34 DREDGE OPERATOR SUPERVISOR OT Charge OT Number of Patient Visits : 1 Charges - OT : Charges Complete OT Self Care/Home Management Minutes : 10minute(s) OT Self Care/Home Management Charges : 1units OT Therapeutic Exercise Minutes : 30minute(s) OT Therapeutic Exercise Charges : 2units NAYA PAGAN - 07/30/2012 15:34 DREDGE OPERATOR SUPERVISOR [facility] POWERCHART Document Id: [id number] GE OPERATOR SUPERVISOR Bianca Villalobos P.T. - 03/10/2012 12:00 AM CDT [id number] PATIENT'S CHIEF COMPLAINT She has no new [...] BIANCA VILLALOBOS On: 03/24/2012 02:52 PM [facility] Document Id: [id number] Bianca Villalobos P.T. - 03/05/2012 12:00 AM CDT [id number] PATIENT'S CHIEF COMPLAINT Patient has no new [...] BIANCA VILLALOBOS On: 03/12/2012 01:15 PM Source: [facility] Document Id: [id number] Bianca Villalobos P.T. - 02/27/2012 12:00 AM CDT [id number] PATIENT'S CHIEF COMPLAINT Patient has no new [...] BIANCA VILLALOBOS On: 03/19/2012 02:16 PM Source: [facility] Document Id: [id number] Bianca Villalobos P.T. - 02/20/2012 12:00 AM CDT [id number] CHIEF COMPLAINT Patient has no new complaints [...] BIANCA VILLALOBOS On: 02/26/2012 07:48 AM Source: [facility] MHSDOLBEYNONRADSYS Document Id: [id number] Bianca Villalobos P.T. - 02/18/2012 12:00 AM CDT [id number] CHIEF COMPLAINT/REASON FOR VISIT Patient had had consultation at [facility] with Dr. Casillas and he would [...] BIANCA VILLALOBOS On: 02/19/2012 10:10 AM Source: [facility] Document Id: [id number] Addendum by BIANCA VILLALOBOS on 20 February 2012 14:28 CDT Incorrect spelling of physician name: Dr. Rasmussen from [facility]. Modified by and Electronically Signed by: BIANCA VILLALOBOS On: 02/20/2012 02:28 PM Source: [facility] [employer] Document Id: [id number] Bianca Villalobos P.T. - 02/06/2012 12:00 AM CDT [id number] PATIENT'S CHIEF COMPLAINT Patient has no new [...] BIANCA VILLALOBOS On: 02/12/2012 03:15 PM Source: [facility] MHSDOLBEYNONRADSYS Document Id: [id number] Bianca Villalobos P.T. - 02/02/2012 12:00 AM CDT [id number] PATIENT'S CHIEF COMPLAINT Patient has no new [...] BIANCA VILLALOBOS On: 02/18/2012 02:10 PM Source: [facility] MHSDOLBEYNONRADSYS Document Id: [id number] Bianca Villalobos P.T. - 01/28/2012 12:00 AM CDT [id number] CHIEF COMPLAINT/REASON FOR VISIT The patient is [...] also has an appointment scheduled at the [facility] for further evaluation of her back as well. Bianca Villalobos D.P.T. Co-Signature: [place] Varma N.P. /joby Electronically Signed By: BIANCA VILLALOBOS On: 01/29/2012 07:53 AM Co-Signed By: [place] VARMA RN, MACHINE WIPER On: 02/02/2012 05:23 AM Source: [facility] MHSDOLBEYNONRADSYS Document Id: [id number] documented in this encounter H&P Notes Naya Pagan, O.T. - 07/30/2012 3:52 PM CST OT Initial Evaluation OT Initial Evaluation Entered On: 07/30/2012 16:49 DREDGE OPERATOR SUPERVISOR Performed On: 07/30/2012 15:52 DREDGE OPERATOR SUPERVISOR by NAYA PAGAN General Info Reason for Referral to OT : Other: l/e edema stage 3 lymphedema Pain Symptoms : Yes NAYA PAGAN - 07/30/2012 15:52 DREDGE OPERATOR SUPERVISOR Pain Pain Assessment Grid Pain 1 Location : Knee Laterality : Bilateral Time Pattern : Intermittent Onset : Gradual Quality : Aching NAYA PAGAN - 07/30/2012 15:52 DREDGE OPERATOR SUPERVISOR Musculoskeletal Edema OT : Brawny Edema Comment [...] management program. [NAYA PAGAN - 07/30/2012 15:52 DREDGE OPERATOR SUPERVISOR] ) NAYA PAGAN - 07/30/2012 15:52 DREDGE OPERATOR SUPERVISOR Goals OT Patient/Caregiver Goal : Independent; home program for edema management NAYA PAGAN - 07/30/2012 15:52 DREDGE OPERATOR SUPERVISOR OT Charge OT Evaluation Charge : Yes OT Number of Patient Visits : 1 Charges - OT : Charges Complete OT Visit, Outpatient : Yes NAYA PAGAN - 07/30/2012 15:52 DREDGE OPERATOR SUPERVISOR Source: [employer] Document Id: [id number] GE OPERATOR SUPERVISOR documented in this encounter Plan of Treatment Not on filedocumented as of this encounter Visit Diagnoses Not on filedocumented in this encounter
--- OUTSIDE RECORDS SUMMARY | 2022-05-23 11:34 | XMS_ITS | Encounter Summary ---
:1935 Author Organization [facility] Address [address] [place] [address] Care Team Providers Name Role Phone Unavailable Primary Care Provider Unavailable Encounter Details Date Type Department Care Team Description 01/16/2011 - Hospital Encounter HX [facility] ChapinTabitha, 09/12/2011 [facility] [address] [place] [phone] Social History Tobacco Use Types Packs/Day Years Used Date Smoking Tobacco: Never Assessed Sex Assigned at Date Recorded Not on file documented as of this encounter Discharge Summaries Bianca Villalobos P.T. - 04/03/2011 12:00 AM CDT [id number] DISCHARGE SUMMARY Patient was evaluated and treated [...] BIANCA VILLALOBOS On: 04/04/2011 09:09 AM Source: [facility] MHSDOLBEYNONRADSYS Document Id: [id number] documented in this encounter Medications at Time [...] Villalobos, P.T. - 02/19/2011 12:00 AM CDT [id number] IMPRESSION/REPORT/PLAN We initiated continuous ultrasound over the [...] BIANCA VILLALOBOS On: 02/25/2011 09:22 am Source: [facility] MHSDOLBEYNONRADSYS Document Id: [id number] Bianca Villalobos P.T. - 01/20/2011 12:00 AM CDT [id number] TELEPHONE CONVERSATION This is regarding a telephone conversation. I did talk with patient on 01/17/2011 and 01/18/2011 as well as this morning, 01/20/2011. Patient has been having nausea since the DIP PAINTER maneuvers performed in the Emergency Room and [...] By: BIANCA VILLALOBOS On: 01/21/2011 01:37 Source: [facility] MHSDOLBEYNONRADSYS Document Id: [id number] Bianca Villalobos P.T. - 01/16/2011 12:00 AM CDT [id number] IMPRESSION/REPORT/PLAN We did perform DIP PAINTER maneuvers for the left posterior canal times [...] Patient education, home exercise program if needed, DIP PAINTER maneuvers. REHAB POTENTIAL Patient has good rehab [...] canal, she was evaluated and treated with DIP PAINTER maneuvers for the left posterior canal and [...] TABITHA AMIN On: 11/10/2011 11:37 PM Source: [facility] MHSDOLBEYNONRADSYS Document Id: [id number] documented in this encounter Plan of Treatment Not on filedocumented as of this encounter Visit Diagnoses Not on filedocumented in this encounter
--- OUTSIDE RECORDS SUMMARY | 2022-05-23 11:34 | XMS_ITS | Encounter Summary ---
:1935 Author Organization [facility] Address [address] [place] [address] Care Team Providers Name Role Phone Unavailable Primary Care Provider Unavailable Encounter Details Date Type Department Care Team Description 08/04/[address] [facility] [place] Varma APRN, C.N.P., D. N.P. [address] [place] [phone] (Wo rk) Social History Tobacco [...] APRN, C.N.P. - 08/04/2011 12:00 AM CST [id number] CHIEF COMPLAINT/REASON FOR VISIT 1. Rash. HISTORY [...] /joby Electronically Signed By: ALB[place]IA VARMA RN, CHILD SUPPORT CASE OFFICER On: 08/14/2011 04:05 PM Source: [facility] MHSDOLBEYNONRADSYS Document Id: [id number] PAINT MIXER documented in this encounter Miscellaneous Notes Miscellaneous - [place] Varma APRN, C.N.P. - 08/04/2011 10:50 AM CST Ambulatory Patient Summary [id number] [place] [address] Visit Information Name: BRIANA LEON Current Date: 08/04/2011 10:49:54 Primary Care Provider: AL[place]IA VARMA RN, [facility] Your Medications Here is a list of [...] No Appointments found Your Goals/Additional instructions: Source: [facility] POWERCHART Document Id: [id number] PAINT MIXER Miscellaneous - [place] Varma APRN, C.N.P. - 08/04/2011 10:49 AM CST Ambulatory Depart Summary [facility] [address] [place] [address] Visit Information Name: BRIANA LEON Current Date: 08/04/2011 10:49:52 Primary Care Provider: ALBANIA VARMA RN, CHILD SUPPORT CASE OFFICER BRIANA LEON has been given the following [...] to the patient and/or family, guardian/caregiver. Source: [facility] POWERCHART Document Id: [id number] PAINT MIXER Miscellaneous - Conversion, Historical Provider Ser - 08/04/2011 10:06 AM HAND PAINT MIXER Adult Spring Fitter Helper Intake/History Adult Spring Fitter Helper Intake/History Entered On: 08/04/2011 10:09 HAND PAINT MIXER Performed On: 08/04/2011 10:06 HAND PAINT MIXER by NIMISHA RIOJAS V Intake Chief Complaint : f/u yeast infection Temperature Core : 36.1C(Converted to: 97.0DegF) (LOW) Peripheral Pulse Rate : 78/min Respiratory Rate : 16/min Systolic Blood Pressure : 128mmHg Diastolic Blood Pressure : 62mmHg NIBP Mean : 84mmHg BP Location : Right upper extremity Heart Rhythm : Regular NIMISHA RIOJAS V - 08/04/2011 10:06 HAND PAINT MIXER Subjective Pain Symptoms : Yes NIMISHA RIOJAS V - 08/04/2011 10:06 HAND PAINT MIXER Pain Pain Assessment Grid Pain 1 Location : Vagina Intensity : 3 NIMISHA RIOJAS V - 08/04/2011 10:06 HAND PAINT MIXER Dependent Habits Tobacco Use/Currently Using : No Smoking Status : Never smoker Alcohol Use : No NIMISHA RIOJAS V - 08/04/2011 10:06 HAND PAINT MIXER Caffeine Use Grid Caffeine Use : Current Type : Coffee Frequency : Weekly NIMISHA RIOJAS 08/04/2011 10:06 HAND PAINT MIXER Recreational Drug Use Grid Drug Use : None NIMISHA RIOJAS V 08/04/2011 10:06 HAND PAINT MIXER Allergy Allergies (Active) Glutens Estimated Onset Date: Unspecified ; Created By: PATTI ALMENDAREZ LPN; Reaction Status: Active; Category: Drug ; Substance: Glutens ; Type: Allergy ; Updated By: PATTI ALMENDAREZ LPN; Reviewed Date: 07/29/2011 14:21 HAND PAINT MIXER Nuts Estimated Onset Date: Unspecified ; Created By: PATTI ALMENDAREZ LPN; Reaction Status: Active ; Category: Food ; Substance: Nuts ; Type: Allergy ; Updated By: PATTI ALMENDAREZ LPN; Reviewed Date: 07/29/2011 14:21 HAND PAINT MIXER Source: [facility] POWERCHART Document Id: [id number] HAND PAINT MIXER!30 documented in this encounter Plan of Treatment Not on filedocumented as of this encounter Visit Diagnoses Not on filedocumented in this encounter
--- OUTSIDE RECORDS SUMMARY | 2022-05-23 11:34 | XMS_ITS | Encounter Summary ---
:1935 Author Organization [facility] Address [address] [place] [address] Care Team Providers Name Role Phone Unavailable Primary Care Provider Unavailable Encounter Details Date Type Department Care Team Description 07/17/2010 - Hospital Encounter HX [facility] Mary Veronica, 08/13/2010 INPT/OBSRV CYRIL, C.N.P., D.N.P. [address] [place] [phone] Social History Tobacco Use Types Packs/Day Years Used Date Smoking Tobacco: Never Assessed Sex Assigned at Date Recorded Not on file documented as of this encounter Plan of Treatment Not on filedocumented as of this encounter Visit Diagnoses Not on filedocumented in this encounter
--- OUTSIDE RECORDS SUMMARY | 2022-05-23 11:34 | XMS_ITS | Encounter Summary ---
:1935 Author Organization [facility] Address [address] [place] [address] Care Team Providers Name Role Phone Unavailable Primary Care Provider Unavailable Encounter Details Date Type Department Care Team Description 10/02/2010 Hospital Encounter HX [facility] INPT/OBSRV Harriet Cortez, CYRIL, C.N.P., D.N.P. [address] [place] [phone] (Wo rk) Social History Tobacco Use [...] RAVINDRA NIETO RN On: 11/01/2010 02:43 Source: [facility] POWERCHART Document Id: [id number] OL TRANSPORTATION SUPERVISOR documented in this encounter Plan of Treatment Not on filedocumented as of this encounter Visit Diagnoses Not on filedocumented in this encounter
--- OUTSIDE RECORDS SUMMARY | 2022-05-23 11:34 | XMS_ITS | Encounter Summary ---
:1935 Author Organization [facility] Address [address] [place] [address] Care Team Providers Name Role Phone Unavailable Primary Care Provider Unavailable Encounter Details Date Type Department Care Team Description 09/25/2011 Hospital Encounter HX [facility] ME Mary Cortez, CYRIL, C.N.P., D. N.P. [address] [place] [phone] (Wo rk) Social History Tobacco Use [...]
--- OUTSIDE RECORDS SUMMARY | 2022-05-23 11:34 | XMS_ITS | Encounter Summary ---
:1935 Author Organization [facility] Address [address] [place] [address] Care Team Providers Name Role Phone Unavailable Primary Care Provider Unavailable Encounter Details Date Type Department Care Team Description 09/24/2011 Hospital Encounter HX [facility] FAM[facility] ME Mary Cortez, CYRLI, C.N.P., D. N.P. [address] [place] [phone] (Wo rk) Social History Tobacco [...] MAR LPN On: 09/24/2011 09:57 AM Source: [facility] POWERCHART Document Id: [id number] SION PHARMACIST documented in this encounter Plan of Treatment Not on filedocumented as of this encounter Visit Diagnoses Not on filedocumented in this encounter
--- OUTSIDE RECORDS SUMMARY | 2022-05-23 11:34 | XMS_ITS | Encounter Summary ---
:1935 Author Organization [facility] Address [address] [place] [address] Care Team Providers Name Role Phone Unavailable Primary Care Provider Unavailable Encounter Details Date Type Department Care Team Description 11/26/2011 Hospital Encounter HX [facility] ME [place] Varma, CYRIL, C.N.P., D. N.P. [address] [place] [phone] (Wo rk) Social History Tobacco [...] APRN, Angy.N.P. - 11/26/2011 12:00 AM CDT [id number] CHIEF COMPLAINT/REASON FOR VISIT Hip pain. HISTORY [...] to be performed. Consent form was obtained. [place] precaution was used. The patient's left hip [...] RN, CNP On: 12/01/2011 01:05 PM Source: [facility] Document Id: [id number] documented in this encounter Miscellaneous Notes Miscellaneous - [place] Varma APRN, C.N.P. - 11/26/2011 2:03 PM CDT Ambulatory Patient Summary [address] [address] Visit Information Name: BRIANA LEON Current Date: 11/26/2011 14:03:53 Physicians Attending Provider: ALBANIA VARMA RN, COMMUTATOR ASSEMBLER Primary Care Provider: ALBANIA VARMA RN, COMMUTATOR ASSEMBLER Your Medications Here is a list of [...] cap(s) at bedtime Oral as directed ID [id number] fluticasone nasal (Flonase 0.05 mg/inh nasal spray) [...] No Appointments found Your Goals/Additional instructions: Source: [facility] POWERCHART Document Id: [id number] Miscellaneous - [place]ia Varma APRN, C.N.P. - 11/26/2011 2:03 PM CDT Ambulatory Depart Summary [address] [address] Visit Information Name: BRIANA LEON Visit Date: 11/26/2011 14:03:53 Attending Provider: ALBANIA VARMA RN, COMMUTATOR ASSEMBLER Primary Care Provider: ALBANIA VARMA RN, COMMUTATOR ASSEMBLER BRIANA LEON has been given the following [...] cap(s) at bedtime Oral as directed ID [id number] fluticasone nasal (Flonase 0.05 mg/inh nasal spray) [...] your provider for clarification. Additional Information: Source: [facility] POWERCHART Document Id: [id number] Miscellaneous - Sujatha Batista L.P.N. - 11/26/2011 12:46 PM CDT Adult Compensation Supervisor Intake/History Adult Compensation Supervisor Intake/History Entered On: 11/26/2011 12:51 CDT Performed [...] PATTI ALMENDAREZ LPN; Reviewed Date: 11/07/2011 9:44 EATING DISORDER SPECIALIST Nuts Estimated Onset Date: Unspecified ; Created By: PATTI ALMENDAREZ LPN; Reaction Status: Active ; Category: Food ; Substance: Nuts ; Type: Allergy ; Updated By: PATTI ALMENDAREZ LPN; Reviewed Date: 11/07/2011 9:44 EATING DISORDER SPECIALIST Source: [facility] POWERCHART Document Id: [id number] CDT!36 documented in this encounter Plan of Treatment Not on filedocumented as of this encounter Visit Diagnoses Not on filedocumented in this encounter
--- OUTSIDE RECORDS SUMMARY | 2022-05-23 11:34 | XMS_ITS | Encounter Summary ---
:1935 Author Organization [facility] Address [address] [place] [address] Care Team Providers Name Role Phone Unavailable Primary Care Provider Unavailable Encounter Details Date Type Department Care Team Description 11/07/2011 Hospital Encounter [facility]X [facility] FAM[facility] ME Sylvester Zamorano III, M.D. [address] [place] [phone] (Wo rk) Social History Tobacco Use Types Packs/Day Years Used Date Smoking Tobacco: Never Assessed Sex Assigned at Date Recorded Not on file documented as of this encounter Last Filed Vital Signs Vital Sign Reading Time Taken Comments Blood Pressure 125/61 11/07/2011 9:39 AM INSPECTOR PENETRANT Pulse 80 11/07/2011 9:39 AM INSPECTOR PENETRANT Temperature - - Respiratory Rate 16 11/07/2011 9:39 AM INSPECTOR PENETRANT Oxygen Saturation - - Inhaled Oxygen Concentration - - Weight 75.4 kg (166 lb 3.6 oz) 11/07/2011 9:39 AM INSPECTOR PENETRANT Height - - Body Mass Index - [...] Zamorano M.D. - 11/07/2011 12:00 AM CST [id number] CHIEF COMPLAINT/REASON FOR VISIT Cough. HISTORY OF [...] III, MD On: 11/10/2011 07:58 AM Source: [facility] MHSDOLBEYNONRADSYS Document Id: [id number] ECTOR PENETRANT documented in this encounter Miscellaneous Notes Miscellaneous - Earle Zamorano M.D. - 11/07/2011 10:02 AM CST Ambulatory Patient Summary [facility] [address] [place] [address] Visit Information Name: BRIANA LEON Current Date: 11/07/2011 10:02:33 Physicians Attending Provider: EARLE ZAMORANO III, MD Primary Care Provider: ALBANIA VARMA RN, ABORIGINAL LIAISON OFFICER Your Medications Here is a list of [...] cap(s) at bedtime Oral as directed ID [id number] fluticasone nasal (Flonase 0.05 mg/inh nasal spray) [...] No Appointments found Your Goals/Additional instructions: Source: [facility] POWERCHART Document Id: [id number] ECTOR PENETRANT Miscellaneous - Earle Zamorano M.D. - 11/07/2011 10:02 AM CST Ambulatory Depart Summary [address] [address] Visit Information Name: BRIANA LEON Visit Date: 11/07/2011 10:02:33 Attending Provider: EARLE ZAMORANO III, MD Primary Care Provider: ALBANIA VARMA RN, ABORIGINAL LIAISON OFFICER BRIANA LEON has been given the [...] cap(s) at bedtime Oral as directed ID [id number] fluticasone nasal (Flonase 0.05 mg/inh nasal spray) [...] clarification. Additional Information: Yes - . Source: [facility] POWERCHART Document Id: [id number] ECTOR PENETRANT Miscellaneous - Ana Hoang L.P.N. - 11/07/2011 9:39 AM CST Adult Chair Inspector And Leveler Intake/History Adult Chair Inspector And Leveler Intake/History Entered On: 11/07/2011 9:43 INSPECTOR PENETRANT Performed On: 11/07/2011 9:39 INSPECTOR PENETRANT by ANA HOANG LPN Intake Chief Complaint [...] 75.40kg ANA HOANG LPN - 11/07/2011 9:39 INSPECTOR PENETRANT Subjective Pain Symptoms : Yes ASLESANA MUNROE LPN - 11/07/2011 9:39 INSPECTOR PENETRANT Pain Pain Assessment Grid Pain 1 Location : Shoulder Laterality : Left Intensity : 5 NAHIDENEANA LPN - 11/07/2011 9:39 INSPECTOR PENETRANT Dependent Habits Tobacco Use/Currently Using : No Exposure to Tobacco Smoke : Care provider denies smoking in home Smoking Status : Never smoker NAHIDENEANA LPN - 11/07/2011 9:39 INSPECTOR PENETRANT Caffeine Use Grid Caffeine Use : Current Type : Coffee Frequency : Weekly ANA HOANG LPN - 11/07/2011 9:39 INSPECTOR PENETRANT Recreational Drug Use Grid Drug Use : None ANA HOANG LPN - 11/07/2011 9:39 INSPECTOR PENETRANT Allergy Allergies (Active) Glutens Estimated Onset Date: Unspecified ; Created By: PATTI ALMENDAREZ LPN; Reaction Status: Active; Category: Drug ; Substance: Glutens ; Type: Allergy ; Updated By: PATTI ALMENDAREZ LPN; Reviewed Date: 11/07/2011 9:39 INSPECTOR PENETRANT Nuts Estimated Onset Date: Unspecified ; Created By: PATTI ALMENDAREZ LPN; Reaction Status: Active ; Category: Food ; Substance: Nuts ; Type: Allergy ; Updated By: PATTI ALMENDAREZ LPN; Reviewed Date: 11/07/2011 9:39 INSPECTOR PENETRANT Source: [facility] POWERCHART Document Id: [id number] INSPECTOR PENETRANT!36 ECTOR PENETRANT documented in this encounter Plan of Treatment Not on filedocumented as of this encounter Visit Diagnoses Not on filedocumented in this encounter
--- OUTSIDE RECORDS SUMMARY | 2022-05-23 11:34 | XMS_ITS | Encounter Summary ---
:1935 Author Organization [facility] Address [address] [place] [address] Care Team Providers Name Role Phone Unavailable Primary Care Provider Unavailable Encounter Details Date Type Department Care Team Description 03/05/2012 Hospital Encounter HX [facility] [place] Varma AP RN, C.N.P., D.N.P. [address] [phone] (Wo rk) Social History Tobacco Use [...] Villalobos, P.T. - 03/19/2012 12:00 AM CDT [id number] CHIEF COMPLAINT/REASON FOR VISIT Patient comes into [...] testing. Vertebral artery testing was negative. Hallpike [place] test was positive for right posterior canal. Patient will be treated for positional vertigo. PATIENT EDUCATION Ready to learn No apparent learning barriers were identified Learning preferences include listening Explained diagnosis and treatment plan Patient/Child/Caregiver expressed understanding of the content IMPRESSION/REPORT/PLAN We initiated STORE SALES MANAGER maneuvers for the right posterior canal. We [...] She was also given instructions on the STORE SALES MANAGER maneuvers if they should have to perform [...] one to three weeks. Plan of Care: STORE SALES MANAGER maneuvers and home instruction, possible home program if needed. Plan to see patient one to three times per week for up to three weeks as needed for symptom resolution. Bianca Villalobos D.P.T. /joby Electronically Signed By: BIANCA VILLALOBOS On: 04/07/2012 02:01 PM Co-Signed By: ALBANIA VARMA RN, RECEIVING TELLER On: 04/07/2012 04:16 PM Source: [facility] MHSDOLBEYNONRADSYS Document Id: [id number] documented in this encounter Miscellaneous Notes Miscellaneous - [place] Varma APRN, C.N.P. - 03/05/2012 11:08 AM CDT Results Notification Document Contains Addenda Addendum by BRIANA TOVAR LPN on 05 March 2012 13:25:39 CDT Pt informed. From: ALBANIA VARMA RN, RECEIVING TELLER To: BRIANA TOVAR LPN; Sent: 03/05/2012 11:08:01 AM CDT Show up: 03/05/2012 11:08:00 AM CDT Subject: Results Notification please let her know sodium is stable and in normal range. Results: Date Result Name Value Ref Range 03/05/2012 9:45 AM Sodium Lvl 135.5 mM/L (135.0 - 145.0) Source: [facility] POWERCHART Document Id: [id number] Electronically signed by [facility]in [facility] Pulmonary Function Technician [id number] at 02/14/2017 7:02 PM CDT documented in this encounter Plan [...]
--- OUTSIDE RECORDS SUMMARY | 2022-05-23 11:34 | XMS_ITS | Encounter Summary ---
:1935 Author Organization [facility] Address [address] [place] [address] Care Team Providers Name Role Phone Unavailable Primary Care Provider Unavailable Encounter Details Date Type Department Care Team Description 10/20/2011 Hospital Encounter [facility] FAM[facility] ME [place] Varma APRN, C.N.P., D. N.P. [address] [place] [phone] (Wo rk) Social History Tobacco Use Types Packs/Day Years Used Date Smoking Tobacco: Never Assessed Sex Assigned at Date Recorded Not on file documented as of this encounter Last Filed Vital Signs Vital Sign Reading Time Taken Comments Blood Pressure 124/70 10/20/2011 9:29 AM PLANT MAINTENANCE MANAGER Pulse 100 10/20/2011 9:29 AM PLANT MAINTENANCE MANAGER Temperature - - Respiratory Rate 18 10/20/2011 9:29 AM PLANT MAINTENANCE MANAGER Oxygen Saturation - - Inhaled Oxygen [...] APRN, C.N.P. - 10/20/2011 12:00 AM CST [id number] CHIEF COMPLAINT/REASON FOR VISIT Hip pain. HISTORY [...] /angy Electronically Signed By: ALBANIA VARMA RN, FREIGHT DISPATCHER On: 10/27/2011 07:08 AM Source: [facility] GRZEGORZSDOLBEYNNIKKO Document Id: [id number] T MAINTENANCE MANAGER documented in this encounter Miscellaneous Notes Miscellaneous - [place] Varma, CASUALTY INSURANCE CLAIM ADJUSTER, C.N.P. - 10/20/2011 10:03 AM CST Ambulatory Patient Summary [facility] [address] [facility] [place] [address] Visit Information Name: BRIANA LEON Current Date: 10/20/2011 10:03:31 Primary Care Provider: ALBANIA VARMA RN, FREIGHT DISPATCHER Your Medications Here is a list [...] cap(s) at bedtime Oral as directed ID [id number] fluticasone nasal (Flonase 0.05 mg/inh nasal spray) [...] No Appointments found Your Goals/Additional instructions: Source: [facility] POWERCHART Document Id: [id number] T MAINTENANCE MANAGER Miscellaneous - [place]ia Varma APRN, C.N.P. - 10/20/2011 10:03 AM CST Ambulatory Depart Summary [facility] [address] [facility] [place] [address] Visit Information Name: BRIANA LEON Current Date: 10/20/2011 10:03:29 Attending Provider: ALBANIA VARMA RN, FREIGHT DISPATCHER Primary Care Provider: ALBANIA VARMA RN, FREIGHT DISPATCHER BRIANA LEON has been given the [...] cap(s) at bedtime Oral as directed ID [id number] fluticasone nasal (Flonase 0.05 mg/inh nasal spray) [...] to the patient and/or family, guardian/caregiver. Source: [facility] POWERCHART Document Id: [id number] T MAINTENANCE MANAGER Miscellaneous - Sujatha Batista L.P.N. - 10/20/2011 9:29 AM CST Adult Veneer Stacker Intake/History Adult Veneer Stacker Intake/History Entered On: 10/20/2011 9:33 PLANT MAINTENANCE MANAGER Performed On: 10/20/2011 9:29 PLANT MAINTENANCE MANAGER by SUJATHA BATISTA LPN Intake Chief [...] Regular SUJATHA BATISTA LPN - 10/20/2011 9:29 PLANT MAINTENANCE MANAGER Subjective Pain Symptoms : Yes SUJATHA BATISTA LPN - 10/20/2011 9:29 PLANT MAINTENANCE MANAGER Pain Pain Assessment Grid Pain 1 Location : Hip Laterality : Right Intensity : 4 SUJATHA BATISTA LPN - 10/20/2011 9:29 PLANT MAINTENANCE MANAGER Dependent Habits Tobacco Use/Currently Using : No Exposure to Tobacco Smoke : Care provider denies smoking in home Smoking Status : Never smoker Alcohol Use : Yes SUJATHA BATISTA LPN - 10/20/2011 9:29 PLANT MAINTENANCE MANAGER Caffeine Use Grid Caffeine Use : Current Type : Coffee Frequency : Weekly SUJTAHA BATISTA LPN - 10/20/2011 9:29 PLANT MAINTENANCE MANAGER Recreational Drug Use Grid Drug Use : None SUJATHA BATISTA LPN - 10/20/2011 9:29 PLANT MAINTENANCE MANAGER Allergy Allergies (Active) Glutens Estimated Onset Date: Unspecified ; Created By: PATTI ALMENDAREZ LPN; Reaction Status: Active; Category: Drug ; Substance: Glutens ; Type: Allergy ; Updated By: PATTI ALMENDAREZ LPN; Reviewed Date: 10/15/2011 12:54 PLANT MAINTENANCE MANAGER Nuts Estimated Onset Date: Unspecified ; Created By: PATTI ALMENDAREZ LPN; Reaction Status: Active ; Category: Food ; Substance: Nuts ; Type: Allergy ; Updated By: PATTI ALMENDAREZ LPN; Reviewed Date: 10/15/2011 12:54 PLANT MAINTENANCE MANAGER Source: [facility] [employer] Document Id: [id number] PLANT MAINTENANCE MANAGER!33 T MAINTENANCE MANAGER documented in this encounter Plan of Treatment Not on filedocumented as of this encounter Visit Diagnoses Not on filedocumented in this encounter
--- OUTSIDE RECORDS SUMMARY | 2022-05-23 11:34 | XMS_ITS | Encounter Summary ---
:1935 Author Organization [facility] Address [address] [place] [address] Care Team Providers Name Role Phone Unavailable Primary Care Provider Unavailable Encounter Details Date Type Department Care Team Description 04/07/2011 Hospital Encounter [facility]X [facility] ME Mary Varma APRN, C.N.P., D. N.P. [address] [place] [phone] (Wo rk) Social History Tobacco [...] APRN, C.N.P. - 04/07/2011 12:00 AM CDT [id number] CHIEF COMPLAINT/REASON FOR VISIT 1. Suture removal. [...] Electronically Signed By: MARY VARMA RN, LEAD PAINTER On: 04/09/2011 09:31 AM Source[facility] Document Id: [id number] Mary Varma APRN, C.N.P. - 10/28/2010 12:00 AM CST [id number] CHIEF COMPLAINT/REASON FOR VISIT Followup of diverticulitis. [...] previous examination. IMPRESSION/REPORT/PLAN 1. Diverticulitis. PLAN: did correctional substance abuse counselor patient in length in regards to [...] By: MARY VARMA On: 10/30/2010 03:49 Source: [facility] MHSDOLBEYNONRADSYS Document Id: [id number] OGRAPHY SUPERVISOR documented in this encounter Miscellaneous Notes Miscellaneous - Mary Varma APRN, C.N.P. - 04/07/2011 10:09 AM CDT Ambulatory Patient Summary [id number] [place] [address] Visit Information Name: KATHRYN LEON Current Date: 04/07/2011 10:09:44 Primary Care Provider: MARY VARMA RN, LEAD PAINTER Your Medications Here is a list of [...] Appointments found Your Goals/Additional instructions: Source: [facility] POWERCHART Document Id: [id number] Miscellaneous - Mary Varma, CYRIL, C.N.P. - 04/07/2011 10:09 AM CDT Ambulatory Depart Summary [address] [address] Visit Information Name: CAROLYNKATHRYN COLONARCHANA Current Date: 04/07/2011 10:09:42 Primary Care Provider: MARY VARMA RN, LEAD PAINTER CAROLYN KATHRYN BANDA has been given the [...] the patient and/or family, guardian/caregiver. Source: [facility] POWERCHART Document Id: [id number] Electronically signed by Conversion, [facility] Morning Caregiver [id number] at 02/15/2017 3:18 PM CDT Miscellaneous - Jessie Chapa L.P.N. - 04/07/2011 9:27 AM CDT Adult Field Artillery Cannoneer Intake/History Adult Field Artillery Cannoneer Intake/History Entered On: 04/07/2011 9:32 CDT Performed [...] LPN; Reviewed Date: 04/07/2011 9:26 CDT Source: [facility] POWERCHART Document Id: [id number] CDT!27 Miscellaneous - Jessie Chapa L.P.N. - 10/28/2010 3:54 PM CST Adult Field Artillery Cannoneer Intake/History Adult Field Artillery Cannoneer Intake/History Entered On: 10/28/2010 15:58 CARTOGRAPHY SUPERVISOR Performed On: 10/28/2010 15:54 CARTOGRAPHY SUPERVISOR by JESSIE WEBB LPN Intake Chief Complaint: [...] 75.50kg JESSIE WEBB LPN - 10/28/2010 15:54 CARTOGRAPHY SUPERVISOR Subjective Pain Symptoms: No JESSIE WEBB LPN - 10/28/2010 15:54 CARTOGRAPHY SUPERVISOR Dependent Habits Tobacco Use/Currently Using: No Alcohol Use: Yes JESSIE WEBB LPN - 10/28/2010 15:54 CARTOGRAPHY SUPERVISOR Caffeine Use Grid Caffeine Use: Current Type: Coffee Frequency: Weekly JESSIE WEBB LPN - 10/28/2010 15:54 CARTOGRAPHY SUPERVISOR Allergies Allergies (Active) Glutens Estimated Onset Date: Unspecified ; Created By: PATTI ALMENDAREZ LPN; Reaction Status: Active; Category: Drug ; Substance: Glutens ; Type: Allergy ; Updated By: PATTI ALMENDAREZ LPN; Reviewed Date: 10/28/2010 15:44 CARTOGRAPHY SUPERVISOR Nuts Estimated Onset Date: Unspecified ; Created By: PATTI ALMENDAREZ LPN; Reaction Status: Active ; Category: Food ; Substance: Nuts ; Type: Allergy ; Updated By: PATTI ALMENDAREZ LPN; Reviewed Date: 10/28/2010 15:44 CARTOGRAPHY SUPERVISOR Source: [facility] POWERCHART Document Id: [id number] CARTOGRAPHY SUPERVISOR!24 OGRAPHY SUPERVISOR documented in this encounter Plan of Treatment Not on filedocumented as of this encounter Visit Diagnoses Not on filedocumented in this encounter
--- OUTSIDE RECORDS SUMMARY | 2022-05-23 11:34 | XMS_ITS | Encounter Summary ---
:1935 Author Organization [facility] Address [address] [place] [address] Care Team Providers Name Role Phone Unavailable Primary Care Provider Unavailable Encounter Details Date Type Department Care Team Description 02/11/2011 - Hospital Encounter HX [facility] [place] Mary Alek, 09/12/2011 [facility] CYRIL, C.N.P., D.N.P. [address] [place] [address] Social History Tobacco Use Types Packs/Day Years Used Date Smoking Tobacco: Never Assessed Sex Assigned at Date Recorded Not on file documented as of this encounter Discharge Summaries Faviola Villalobos, P.T. - 02/11/2011 12:00 AM CDT [id number] IMPRESSION/REPORT/PLAN Patient was evaluated and treated for BPPV under the referral of Dr. Tabitha Samson. She was seen in the ER and then seen and followed up as an outpatient. She was seen for a total of two sessions. Plan of care included patient education, TIRE SHOP MECHANIC maneuvers and home positioning. She achieved all goals and is symptom free at this time. Patient will be discharged due to symptom resolution. Faviola Villalobos M.P.T. /tommy Electronically Signed By: FAVIOLA VILLALOBOS On: 02/26/2011 03:18 pm Modified by and Electronically Signed by: FAVIOLA VILLALOBOS On: 02/26/2011 03:18 pm [facility] Document Id: [id number] documented in this encounter Medications at Time [...] Villalobos P.T. - 03/11/2011 12:00 AM CDT [id number] IMPRESSION/REPORT/PLAN Performed continuous ultrasound over the left [...] FAVIOLA VILLALOBOS On: 03/12/2011 02:24 PM [facility] Document Id: [id number] Faviola Villalobos P.T. - 02/25/2011 12:00 AM CDT [id number] CHIEF COMPLAINT/REASON FOR VISIT She has noted [...] FAVIOLA VILLALOBOS On: 02/26/2011 02:53 PM Source: [facility] ThalchemySDOLBEYNSHANEKARADHeyStaks Document Id: [id number] Faviola Villalobos P.T. - 02/12/2011 12:00 AM CDT [id number] REFERRAL SOURCE Patient is referred to physical [...] a written handout with illustrations, verbalized understanding. [facility] EDU #1 Patient Education Ready to learn. [...] 09:35 AM Co-Signed By: MARY VARMA RN, DATA KEYER On: 02/13/2011 09:37 AM Source: [facility] MHSDOLBEYNONRADSYS Document Id: [id number] documented in this encounter Plan of Treatment Not on filedocumented as of this encounter Visit Diagnoses Not on filedocumented in this encounter
--- OUTSIDE RECORDS SUMMARY | 2022-05-23 11:34 | XMS_ITS | Encounter Summary ---
:1935 Author Organization [facility] Address [address] [place] [address] Care Team Providers Name Role Phone Unavailable Primary Care Provider Unavailable Encounter Details Date Type Department Care Team Description 03/21/2011 Hospital Encounter HX [facility] ED Cristina Villagomez M.D. [address] [place] [address] 021 (Wo rk) Social History Tobacco Use Types Packs/Day Years Used Date Smoking Tobacco: Never Assessed Sex Assigned at Date Recorded Not on file documented as of this encounter Discharge Summaries Alyse Yi, RDannN. - 03/21/2011 8:25 PM CDT ED Depart Summary [facility] Emergency Department Clinical Discharge Summary PERSON INFORMATION Name KATHRYN LEON Age 76 Years 1935 12:00 AM Sex Female Language French PCP ALBANIA VARMA RN, PER DIEM INTERPRETER Marital Status N [id number] Visit Id Visit Reason Laceration; cut on leg Specialty Enc Type Emergency Med Service Emergency Medicine Referred by Track Group [facility] ED Discharge 03/21/2011 8:25 PM Tracking Id [id number] Checkout 03/21/2011 8:25 PM Checkin 03/21/2011 7:41 PM Acuity 4 -Less Urgent Dispo Type * Discharged to Home or Self Care Arrival 03/21/2011 7:41 PM Reg Status LOS 000 00:44 Address: [address] [place] [phone] Comment: PROVIDER INFORMATION Provider Role Assigned Unassigned ALYSE YI ALARM SECURITY OR SURVEILLANCE MONITOR Nurse 03/21/2011 7:49 PM AZAR VILLAGOMEZ MD ED Provider 03/21/2011 7:53 PM DIAGNOSIS Leg laceration repair Comment: PATIENT EDUCATION INFORMATION Instructions: LACERATION, Extrem (suture, staple or tape) Follow up: With: Address: When: ALBANIA VARMA [address] [place] [phone] phone, [employer] (1) Within 2weeks Comments: Eight sutures need to be removed. Source: [facility] POWERCHART Document Id: [id number] Electronically signed by Conversion, [facility] Loan Consultant [id number] at 02/15/2017 3:18 PM CDT Alyse Yi, R.N. - 03/21/2011 8:25 PM CDT ED Discharge Instructions [address] [address] Name: KATHRYN LEON Date of : 1935 12:00 AM Visit Date: 03/21/2011 7:41 PM Address: [address] [place] [phone] Primary Care Provider: ALBANIA VARMA RN, PER DIEM INTERPRETER IMPORTANT: [facility] in [place] would like to thank you for allowing us to assist you with your healthcare needs. The following includes patient education materials and informationregarding your injury/illness. Follow-Up Instructions: With: Address: When: ALBANIA VARMA [address] [place] [phone] phone, [employer] (1) Within 2weeks Comments: Eight sutures need to be removed. Patient Education Materials: [id number] LACERATION, EXTREMITY [sutures, kirti or tape] A [...] Bleeding not controlled by direct pressure ?? [id number] [employer], [address] [place] [address], [place] [address]. All rights reserved. This information is not [...] physician. Patient Signature or Responsible Constitution Party/Relationship Date/Time Provider Signature Date/Time Medication Reconciliation: [...] physician. Patient Signature or Responsible Constitution Party/Relationship Date/Time Provider Signature Date/Time Source: [facility] NodalityCHART Document Id: [id number] Electronically signed by Conversion, [facility] Loan Consultant [id number] at 02/15/2017 3:18 PM CDT documented in this encounter Medications [...] Nursing ; Code: 1231 ; Contributor System: [email or web address] ; Last Updated: 01/21/2011 5:04 CDT ; Life Cycle Date: 10/25/2010 ; Life Cycle Status: Active ; Responsible Provider: PATTI ALMENDAREZ LPN; Vocabulary: ICD-9-CM Arthritis, rheumatoid* Name of Problem: Arthritis, rheumatoid* ; Onset Date: 02/27/1980 ; Recorder: PATTI ALMENDAREZ LPN; Confirmation: Confirmed ; Classification: Nursing ; Code: 1231 ; Contributor System: ImpressPagesChart ; Last Updated: 10/25/2010 14:18 TUBING TESTER ; Life Cycle Date: 10/25/2010 ; Life Cycle Status: Active ; Responsible Provider: PATTI ALMENDAREZ LPN; Vocabulary: ICD-9-CM Cataract NOS Name of Problem: Cataract NOS ; Onset Date: 1991 ; Recorder: PATTI ALMENDAREZ LPN; Confirmation: Confirmed ; Classification: Nursing ; Code: 1231 ; Contributor System: ImpressPagesChart ; Last Updated: 01/21/2011 5:04 CDT ; Life Cycle Date: 10/25/2010 ; Life Cycle Status: Active ; Responsible Provider: PATTI ALMENDAREZ LPN; Vocabulary: ICD-9-CM Celiac Disease Name of Problem: Celiac Disease ; Onset Date: 02/26/2007 ; Recorder: PATTI ALMENDAREZ LPN; Confirmation: Confirmed ; Classification: Nursing ; Code: 1231 ; Contributor System: PowerChart ; Last Updated: 10/25/2010 14:20 TUBING TESTER ; Life Cycle Date: 10/25/2010 ; Life Cycle Status: Active ; Responsible Provider: PATTI ALMENDAREZ LPN; Vocabulary: ICD-9-CM Diverticulitis of large intestine Name of Problem: Diverticulitis of large intestine ; Onset Date: 10/28/2010 ; Recorder: ALBANIA VARMA RN, CNP; Confirmation: Confirmed ; Classification: Medical ; Code: 1231 ; Last Updated: 10/28/2010 10:30 TUBING TESTER ; Life Cycle Date: 10/28/2010 ; Life Cycle Status: Active ; Responsible Provider: ALBANIA VARMA RN, CNP; Vocabulary: ICD-9-CM Glaucoma Name of Problem: Glaucoma ; Onset Date: 1986 ; Recorder: PATTI ALMENDAREZ LPN; Confirmation:Confirmed ; Classification: Nursing ; Code: 1231 ; Contributor System: ImpressPagesChart ; Last Updated: 01/21/2011 5:05 CDT ; Life Cycle Date: 10/25/2010 ; Life Cycle Status: Active ; Responsible Provider: PATTI ALMENDAREZ LPN; Vocabulary: ICD-9-CM 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 Name of Problem: 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 ; Recorder: ALBANIA VARMA RN, PER DIEM INTERPRETER; Confirmation: Confirmed ; Classification: Medical ; Code: 1231 ; Contributor System: ImpressPagesChart ; Last Updated: 11/04/2010 3:49 TUBING TESTER ; Life Cycle Date: 11/04/2010 ; Life Cycle Status: Active ; Responsible Provider: ALBANIA VARMA RN, PER DIEM INTERPRETER; Vocabulary: ICD-9-CM Osteopenia Name of Problem: Osteopenia ; Onset Date: 02/26/1987 ; Recorder: PATTI ALMENDAREZ LPN; Confirmation: Confirmed ; Classification: Nursing ; Code: 1231 ; Contributor System: ImpressPagesChart ; Last Updated: 10/25/2010 14:19 TUBING TESTER ; Life Cycle Date: 10/25/2010 ; Life Cycle Status: Active ; Responsible Provider: PATTI ALMENDAREZ LPN; Vocabulary: ICD-9-CM Other and Unspecified Vaginal Hysterectomy Name of Problem: Other and Unspecified Vaginal Hysterectomy ; Onset Date: 02/26/1967 ; Recorder: PATTI ALMENDAREZ LPN; Confirmation: Confirmed ; Classification: Nursing ; Code: 1231 ; Contributor System: PowerChart ; Last Updated: 10/25/2010 14:22 TUBING TESTER ; Life Cycle Date: 10/25/2010 ; Life Cycle Status: Active ; Responsible Provider: PATTI ALMENDAREZ LPN; Vocabulary: ICD-9-CM Other Repair of Bladder Name of Problem: Other Repair of Bladder ; Onset Date: 02/26/1995 ; Recorder: PATTI ALMENDAREZ LPN; Confirmation: Confirmed ; Classification: Nursing ; Code: 1231 ; Contributor System: PowerChart ; Last Updated: 11/04/2010 3:55 TUBING TESTER ; Life Cycle Date: 10/25/2010 ; Life Cycle Status: Active ; Responsible Provider: PATTI ALMENDAREZ LPN; Vocabulary: ICD-9-CM Diagnoses(Active) Laceration Date: 03/21/2011 19:45 CDT ; Diagnosis Type: Reason For Visit ; Confirmation: Complaint of ; Classification: Medical ; Clinical Service: Emergency medicine ; Code: PNED ; Probability: 0 ; Diagnosis Code: [id number] Triage Information Given By: Patient Accompanied By: Spouse Mode of Arrival ED: Private vehicle, Ambulatory Track: Trauma Other Languages: French Pain Symptoms: Yes ALYSE YI RN 03/21/2011 [...] CDT Cardiovascular Heart Rhythm: Regular Skin Color: [place] Skin Description: Dry Skin Temperature: Warm ALYSE [...] Skin Integrity: Not intact Mucous Membrane Color: [place] Mucous Membrane Description: Moist Skin Color: [place] Skin Description: Dry Skin Temperature: Warm ALYSE YI RN - 03/21/2011 20:04 CDT Musculoskeletal Fall Prevention Education Provided: ALYSE RANDLE RN - 03/21/2011 20:04 CDT Social Habits Alcohol Use Grid Alcohol Use: No ALYSE YI RN - 03/21/2011 20:04 CDT Tobacco Use Grid Tobacco Use: None ALYSE YI RN - 03/21/2011 20:04 CDT Recreational Drug Use Grid Drug Use: None ALYSE YI RN - 03/21/2011 20:04 CDT Source: PAAY Document Id: [id number] CDT!60 documented in this encounter ED Notes [...] YI RN - 03/21/2011 20:24 CDT Source: PAAY Document Id: [id number] CDT!7 Azar Villagomez M.D. - 03/21/2011 7:54 [...] Surgical history. Laminectomy approach to lumbar spine ([id number]) in 2008 at 73 Years. Extracapsular cataract removal with insertion of intraocular lens prosthesis (1 stage procedure), manual or mechanical technique (eg, irrigation and aspiration or phacoemulsification) (97120) in 2006 at 72 Years. 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 Hysterectomy ([id number]) in 1966 at 31 Years. Hemorrhoidectomy, internal and external, single column/group; (18139) in 1958 at 24 Years. Family history: [...] prescription, Patient indicated understanding of instructions. Source: [facility] POWERCHART Document Id: {[id number]} Alyse Yi R.N. - 03/21/2011 7:44 PM CDT ED Triage Assessment ED Triage Assessment Entered On: 03/21/2011 19:49 CDT Performed On: 03/21/2011 19:44 CDT by ALYSE YI RN Reason For Visit Problems(Active) Allergic rhinitis, unspecified Name of Problem: Allergic rhinitis, unspecified ; Onset Date: 1952 ; Recorder: PATTI ALMENDAREZ LPN; Confirmation: Confirmed ; Classification: Nursing ; Code: 1231 ; Contributor System: ImpressPagesChart ; Last Updated: 01/21/2011 5:04 CDT ; Life Cycle Date: 10/25/2010 ; Life Cycle Status: Active ; Responsible Provider: PATTI ALMENDAREZ LPN; Vocabulary: ICD-9-CM Arthritis, rheumatoid* Name of Problem: Arthritis, rheumatoid* ; Onset Date: 02/27/1980 ; Recorder: PATTI ALMENDAREZ LPN; Confirmation: Confirmed ; Classification: Nursing ; Code: 1231 ; Contributor System: ImpressPagesChart ; Last Updated: 10/25/2010 14:18 TUBING TESTER ; Life Cycle Date: 10/25/2010 ; Life Cycle Status: Active ; Responsible Provider: PATTI ALMENDAREZ LPN; Vocabulary: ICD-9-CM Cataract NOS Name of Problem: Cataract NOS ; Onset Date: 1991 ; Recorder: PATTI ALMENDAREZ LPN; Confirmation: Confirmed ; Classification: Nursing ; Code: 1231 ; Contributor System: ImpressPagesChart ; Last Updated: 01/21/2011 5:04 CDT ; Life Cycle Date: 10/25/2010 ; Life Cycle Status: Active ; Responsible Provider: PATTI ALMENDAREZ LPN; Vocabulary: ICD-9-CM Celiac Disease Name of Problem: Celiac Disease ; Onset Date: 02/26/2007 ; Recorder: PATTI ALMENDAREZ LPN; Confirmation: Confirmed ; Classification: Nursing ; Code: 1231 ; Contributor System: PowerChart ; Last Updated: 10/25/2010 14:20 TUBING TESTER ; Life Cycle Date: 10/25/2010 ; Life Cycle Status: Active ; Responsible Provider: PATTI ALMENDAREZ LPN; Vocabulary: ICD-9-CM Diverticulitis of large intestine Name of Problem: Diverticulitis of large intestine ; Onset Date: 10/28/2010 ; Recorder: ALBANIA VARMA RN, PER DIEM INTERPRETER; Confirmation: Confirmed ; Classification: Medical ; Code: 1231 ; Last Updated: 10/28/2010 10:30 TUBING TESTER ; Life Cycle Date: 10/28/2010 ; Life Cycle Status: Active ; Responsible Provider: ALBANIA VARMA RN, CNP; Vocabulary: ICD-9-CM Glaucoma Name of Problem: Glaucoma ; Onset Date: 1986 ; Recorder: PATTI ALMENDAREZ LPN; Confirmation:Confirmed ; Classification: Nursing ; Code: 1231 ; Contributor System: ImpressPagesChart ; Last Updated: 01/21/2011 5:05 CDT ; [...] Medical ; Code: 1231 ; Contributor System: ImpressPagesChart ; Last Updated: 11/04/2010 3:49 TUBING TESTER ; Life Cycle Date: 11/04/2010 ; Life Cycle Status: Active ; Responsible Provider: ALBANIA VARMA RN, CNP; Vocabulary: ICD-9-CM Osteopenia Name of Problem: Osteopenia ; Onset Date: 02/26/1987 ; Recorder: PATTI ALMENDAREZ LPN; Confirmation: Confirmed ; Classification: Nursing ; Code: 1231 ; Contributor System: ImpressPagesChart ; Last Updated: 10/25/2010 14:19 TUBING TESTER ; Life Cycle Date: 10/25/2010 ; Life Cycle Status: Active ; Responsible Provider: PATTI ALMENDAREZ LPN; Vocabulary: ICD-9-CM Other and Unspecified Vaginal Hysterectomy Name of Problem: Other and Unspecified Vaginal Hysterectomy ; Onset Date: 02/26/1967 ; Recorder: PATTI ALMENDAREZ LPN; Confirmation: Confirmed ; Classification: Nursing ; Code: 1231 ; Contributor System: PowerChart ; Last Updated: 10/25/2010 14:22 TUBING TESTER ; Life Cycle Date: 10/25/2010 ; Life Cycle Status: Active ; Responsible Provider: PATTI ALMENDAREZ LPN; Vocabulary: ICD-9-CM Other Repair of Bladder Name of Problem: Other Repair of Bladder ; Onset Date: 02/26/1995 ; Recorder: PATTI ALMENDAREZ LPN; Confirmation: Confirmed ; Classification: Nursing ; Code: 1231 ; Contributor System: ImpressPagesChart ; Last Updated: 11/04/2010 3:55 TUBING TESTER ; Life Cycle Date: 10/25/2010 ; Life Cycle Status: Active ; Responsible Provider: PATTI ALMENDAREZ LPN; Vocabulary: ICD-9-CM Diagnoses(Active) Laceration Date: 03/21/2011 19:45 CDT ; Diagnosis Type: Reason For Visit ; Confirmation: Complaint of ; Classification: Medical ; Clinical Service: Emergency medicine ; Code: PNED ; Probability: 0 ; Diagnosis Code: [id number] Triage Chief Complaint Description: pt tripped over metal lawn ornament and cut her right ineer ankle Information Given By: Patient Accompanied By: Spouse Mode of Arrival ED: Private vehicle, Ambulatory Languages: French Pain Symptoms: Yes Vital Signs Assessed: Yes [...] Tracking Acuity: 4 -Less Urgent Tracking Group: [facility] ED ALYSE YI RN - 03/21/2011 [...] LPN; Reviewed Date: 02/04/2011 9:32 CDT Source: PAAY Document Id: [id number] CDT!35 documented in this encounter Miscellaneous Notes Miscellaneous - Alyse Yi R.N. - 03/21/2011 8:24 PM CDT Valuables/Belongings Valuables/Belongings Entered On: 03/21/2011 20:24 CDT Performed On: 03/21/2011 20:24 CDT by ALYSE YI RN Valuables/Belongings Home Medication Disposition: None brought in with patient ALYSE YI RN - 03/21/2011 20:24 CDT [facility] Id: [id number] CDT!3 Miscellaneous - Alyse Yi R.N. - [...] with Diagnosis Control: 4 Lynx Visit Level: 22257 Level 2 ALYSE YI RN - 03/21/2011 20:25 CDT [facility] Document Id: [id number] CDT!12 documented in this encounter Plan of Treatment Not on filedocumented as of this encounter Visit Diagnoses Not on filedocumented in this encounter
--- OUTSIDE RECORDS SUMMARY | 2022-05-23 11:34 | XMS_ITS | Encounter Summary ---
:1935 Author Organization [facility] Address [address] [place] [address] Care Team Providers Name Role Phone Unavailable Primary Care Provider Unavailable Encounter Details Date Type Department Care Team Description 07/27/2012 Hospital Encounter HX [facility] ME Mary Varma, CYRIL, C.N.P., D. N.P. 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 - 07/27/2012 10:50 AM CST [id number] CHIEF COMPLAINT/REASON FOR VISIT 1. Vertigo. 2. [...] Patient was seen by a provider in [place] and was prescribed Vagifem and hasmisplaced her [...] Quiroga/joby Electronically Signed By: MARY VARMA RN, AS400 DEVELOPER On: 07/27/2012 03:49 PM Source: [facility] [email or web address] Document Id: [id number] [employer] documented in this encounter Miscellaneous Notes Miscellaneous - Mary Varma APRN, C.N.P. - 07/27/2012 11:40 AM CST Ambulatory Patient Summary [address] [address] Visit Information Name: KATHRYN LEON Current Date: 07/27/2012 11:40:23 Physicians Attending Provider: MARY VARMA RN, AS400 DEVELOPER Primary Care Provider: MARY VARMA RN, AS400 DEVELOPER Your Medications Here is a list [...] cap(s) at bedtime Oral as directed ID [id number] fluticasone nasal (Flonase 0.05 mg/inh nasal spray) [...] No Appointments found Your Goals/Additional instructions: Source: [facility] POWERCHART Document Id: [id number] [employer] Miscellaneous - Mary Varma APRN, C.N.P. - 07/27/2012 11:40 AM CST Ambulatory Depart Summary [address] [address] Visit Information Name: CAROLYN ARCHANA Visit Date: 07/27/2012 11:40:20 Attending Provider: MARY VARMA RN, AS400 DEVELOPER Primary Care Provider: MARY VARMA RN, AS400 DEVELOPER KATHRYN LEON has been given the following [...] cap(s) at bedtime Oral as directed ID [id number] fluticasone nasal (Flonase 0.05 mg/inh nasal spray) [...] your provider for clarification. Additional Information: Source: [facility] POWERCHART Document Id: [id number] [employer] [place] - Sujatha Batista L.P.N. - 07/27/2012 11:07 AM CST Health Assessment Health Assessment Entered On: 07/27/2012 11:07 [employer] Performed On: 07/27/2012 11:07 [employer] by SUJATHA BATISTA LPN Health Assessment Complete Health Assessment Complete or Modified : Annual Health Assessment Annual Health Assessment Completed : Yes SUJATHA BATISTA LPN - 07/27/2012 11:07 [employer] Nutrition Nutrition Risk Factors by History Adult : None SUJATHA BATISTA LPN - 07/27/2012 11:07 [employer] Functional Current Daily Living Assistance : None SUJATHA BATISTA LPN - 07/27/2012 11:07 [employer] Dependent Habits Tobacco Use/Currently Using : No Exposure to Tobacco Smoke : Care provider denies smoking in home Smoking Status : Never smoker SUJATHA BATISTA LPN - 07/27/2012 11:07 [employer] Tobacco Use Grid Last Use : never SUJATHA BATISTA LPN - 07/27/2012 11:07 [employer] Caffeine Use Grid Caffeine Use : Current Type : Coffee Frequency : Weekly SUJATHA BATISTA LPN - 07/27/2012 11:07 [employer] Recreational Drug Use Grid Drug Use : None SUJATHA BATISTA LPN - 07/27/2012 11:07 [employer] Psychosocial Domestic Abuse Concerns : None SUJATHA BATISTA LPN - 07/27/2012 11:07 [employer] Advance Directive Advanced Directives : No Advance Directive Additional Information : Yes SUJATHA BATISTA LPN - 07/27/2012 11:07 [employer] Educ Needs Learning Style Preference Adult Grid Patient : Demonstration Family : None SUJATHA BATISTA LPN - 07/27/2012 11:07 [employer] Source: [facility] POWERCHART Document Id: [id number] [employer] Sujatha Soni L.PChelsey - 07/27/2012 10:58 AM CST 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 med for vag dryness rx nee [...] 75.50kg SUJATHA BATISTA LPN - 07/27/2012 10:58 [employer] Subjective Pain Symptoms : No SUJATHA BATISTA LPN - 07/27/2012 10:58 [employer] Dependent Habits Tobacco Use/Currently Using : No Exposure to Tobacco Smoke : Care provider denies smoking in home Smoking Status : Never smoker SUJATHA BATISTA LPN - 07/27/2012 10:58 [employer] Tobacco Use Grid Last Use : never SUJATHA BATISTA LPN - 07/27/2012 10:58 [employer] Alcohol Use : Yes SUJATHA BATISTA LPN - 07/27/2012 10:58 [employer] Caffeine Use Grid Caffeine Use : Current Type : Coffee Frequency : Weekly SUJATHA BATISTA LPN - 07/27/2012 10:58 [employer] Recreational Drug Use Grid Drug Use : None SUJATHA BATISTA LPN - 07/27/2012 10:58 [employer] Allergy Allergies (Active) Glutens Estimated Onset Date: [...] LPN; Reviewed Date: 01/21/2012 9:26 CDT Source: [facility] [email or web address] Document Id: [id number] [employer] documented in this encounter Plan of Treatment Not on filedocumented as of this encounter Visit Diagnoses Not on filedocumented in this encounter
--- OUTSIDE RECORDS SUMMARY | 2022-05-23 11:34 | XMS_ITS | Encounter Summary ---
:1935 Author Organization [facility] Address [address] [place] [address] Care Team Providers Name Role Phone Unavailable Primary Care Provider Unavailable Encounter Details Date Type Department Care Team Description 10/23/2010 Hospital Encounter HX NO MAPPING Skylar Brush M.D. [address] [place] [phone] (Wo rk) Social History Tobacco Use Types Packs/Day Years Used Date Smoking Tobacco: Never Assessed Sex Assigned at Date Recorded Not on file documented as of this encounter Plan of Treatment Not on filedocumented as of this encounter Visit Diagnoses Not on filedocumented in this encounter
--- OUTSIDE RECORDS SUMMARY | 2022-05-23 11:34 | XMS_ITS | Encounter Summary ---
:1935 Author Organization [facility] Address [address] [place] [address] Care Team Providers Name Role Phone Unavailable Primary Care Provider Unavailable Encounter Details Date Type Department Care Team Description 01/14/2011 Hospital Encounter HX [facility] ED Jesus Alberto Troy P.AXavi [address] [place], [place] [address] (Wo rk) Social History Tobacco Use Types Packs/Day Years Used Date Smoking Tobacco: Never Assessed Sex Assigned at Date Recorded Not on file documented as of this encounter Discharge Summaries Santa Shine R.N. - 01/14/2011 11:10 AM CDT ED Discharge Instructions [address] [address] Name: KATHRYN LEON Date of : 1935 12:00 AM Visit Date: 01/14/2011 7:37 AM Address: [address] [place] [phone] Primary Care Provider: ALBANIA VARMA RN, TERRITORY MANAGER GENERAL SALES IMPORTANT: [facility] would like to thank you for allowing us to assist you with your healthcare needs. The following includes patient education materials and information regarding your injury/illness. Follow-Up Instructions: With: Address: When: ALBANIA VARMA [address] [place] [address] phone, business (1) Within 1week Comments: Patient Education Materials: [id number] VERTIGO [Unknown Cause] The inner ear is [...] nausea, vomiting and vertigo, you may use ylqk-ozx-fionhrz motion sickness pills, such as meclizine (Bonine, [...] face Difficulty with speech or vision ?? 8581-2414 [employer], [address] [place] [address], [place] [address]. All rights reserved. This information is not intended as a substitute for professional medical care. Always follow your healthcare professional's instructions. [id number] DIVERTICULITIS Some persons, as they get older, [...] of the stools) Unexpected vaginal bleeding ?? 7970-1373 [employer], [address] [place] [address]. All rights reserved. This information is not [...] ride home with a responsible republican. I, CAROLYN KATHRYN BANDA , or responsible republican have received this information and my questions have been answered. I have discussed any challenges I see with this plan with the nurse or physician. Patient Signature or Responsible Green Party/Relationship Date/Time Provider Signature Date/Time This document has images extracted. Please consider using [employer] for all your patient education needs. Source: [facility] POWERCHART Document Id: [id number] Santa Shine R.N. - 01/14/2011 11:10 AM CDT ED Depart Summary [facility] Emergency Department Clinical Discharge Summary PERSON INFORMATION Name KATHRYN LEON Age 75 Years 1935 12:00 AM Sex Female Language Armenian PCP ALBANIA VARMA RN, TERRITORY MANAGER GENERAL SALES Marital Status Visit Id Visit Reason Vertigo - recurrent; Vertigo - recurrent; unknown Specialty Enc Type Emergency Med Service Emergency Medicine Referred by Track Group [facility] ED Discharge 01/14/2011 11:09 AM Tracking Id [id number] Checkout 01/14/2011 11:09 AM Checkin 01/14/2011 7:37 AM Acuity Dispo Type Discharged to Home or Self Care Arrival 01/14/2011 7:37 AM Reg Status LOS 000 03:32 Address: [address] [place] [phone] Comment: PROVIDER INFORMATION Provider Role Assigned Unassigned JESUS ALBERTO TROY ED Provider 01/14/2011 8:08 AM CATHIE KAY PRE SCHOOL TEACHER Nurse 01/14/2011 8:08 AM DIAGNOSIS Vertigo; Diverticulitis (with diverticulosis) NOS Comment: PATIENT EDUCATION INFORMATION Instructions: VERTIGO, Unspecified; DIVERTICULITIS Follow up: With: Address: When: ALBANIA VARMA [address] [place] [address] phone, business (1) Within 1week Comments: Source: [facility] POWERCHART Document Id: [id number] Electronically signed by Dustin, [facility] Automatic Spinning Lathe Operator [id number] at 02/15/2017 6:57 PM CDT documented in [...] her eyes, but strong nystagmus noted. Performed HEAD OF PRECISION TARGETING manuevers for left posterior canal. Educated patient, spouse and staff on precautions due to severityof symptoms. Sleeping at 45 degree angle and avoid lying on left side. Provided patient/spouse with patient education pamphlets 2279 and [id number]. Patient left resting comfortably in bed with nursing observing. I will continue to follow patient on an outpatient basis to ensure resolution of symtoms. Electronically Signed By: FAVIOLA VILLALOBOS On: 01/14/2011 03:50 PM Co-Signed By: JESUS ALBERTO TROY On: 11/10/2011 11:37 PM Source: [facility] [employer]CHART Document Id: [id number] documented in this encounter Nursing Notes Cathie Kay, R.N. - 01/14/2011 7:55 AM CDT ED Primary Assessment ED Primary Assessment Entered On: 01/14/2011 7:58 CDT Performed On: 01/14/2011 7:55 CDT by CATHIE KAY RN Reason For Visit Problems(Active) Allergic rhinitis, unspecified Name of Problem: Allergic rhinitis, unspecified ; Recorder: PATTI ALMENDAREZ LPN; Confirmation: Confirmed ; Classification: Nursing ; Code: 1231 ; Contributor System: EarLens ; Last Updated: 12/31/2010 7:10 CDT ; Life Cycle Date: 10/25/2010 ; Life Cycle Status: Active ; Responsible Provider: PATTI ALMENDAREZ LPN; Vocabulary: ICD-9-CM Arthritis, rheumatoid* Name of Problem: Arthritis, rheumatoid* ; Onset Date: 02/27/1980 ; Recorder: PATTI ALMENDAREZ LPN; Confirmation: Confirmed ; Classification: Nursing ; Code: 1231 ; Contributor System: PowerChart ; Last Updated: 10/25/2010 14:18 FIREBOAT OPERATOR ; Life Cycle Date: 10/25/2010 ; Life Cycle Status: Active ; Responsible Provider: PATTI ALMENDAREZ LPN; Vocabulary: ICD-9-CM Cataract NOS Name of Problem: Cataract NOS ; Recorder: PATTI ALMENDAREZ LPN; Confirmation: Confirmed ; Classification: Nursing ; Code: 1231 ; Contributor System: PowerChart ; Last Updated: 10/25/2010 14:21 FIREBOAT OPERATOR ; Life Cycle Date: 10/25/2010 ; Life Cycle Status: Active ; Responsible Provider: PATTI ALMENDAREZ LPN; Vocabulary: ICD-9-CM Celiac Disease Name of Problem: Celiac Disease ; Onset Date: 02/26/2007 ; Recorder: PATTI ALMENDAREZ LPN; Confirmation: Confirmed ; Classification: Nursing ; Code: 1231 ; Contributor System: PowerChart ; Last Updated: 10/25/2010 14:20 FIREBOAT OPERATOR ; Life Cycle Date: 10/25/2010 ; Life Cycle Status: Active ; Responsible Provider: PATTI ALMENDAREZ LPN; Vocabulary: ICD-9-CM Diverticulitis of large intestine Name of Problem: Diverticulitis of large intestine ; Onset Date: 10/28/2010 ; Recorder: ALBANIA VARMA RN, CNP; Confirmation: Confirmed ; Classification: Medical ; Code: 1231 ; Last Updated: 10/28/2010 10:30 FIREBOAT OPERATOR ; Life Cycle Date: 10/28/2010 ; Life Cycle Status: Active ; Responsible Provider: ALBANIA VARMA RN, TERRITORY MANAGER GENERAL SALES; Vocabulary: ICD-9-CM Glaucoma Name of Problem: Glaucoma ; Recorder: PATTI ALMENDAREZ LPN; Confirmation: Confirmed ; Classification: Nursing ; Code: 1231 ; Contributor System: ValkeeChart ; Last Updated: 10/25/2010 14:18 FIREBOAT OPERATOR ; Life Cycle Date: 10/25/2010 ; Life Cycle Status: Active ; Responsible Provider: PATTI ALMENDAREZ LPN; Vocabulary: ICD-9-CM 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 Name of Problem: 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 ; Recorder: ALBANIA VARMA RN, TERRITORY MANAGER GENERAL SALES; Confirmation: Confirmed ; Classification: Medical ; Code: 1231 ; Contributor System: PowerChart ; Last Updated: 11/04/2010 3:49 FIREBOAT OPERATOR ; Life Cycle Date: 11/04/2010 ; Life Cycle Status: Active ; Responsible Provider: ALBANIA VARMA RN, TERRITORY MANAGER GENERAL SALES; Vocabulary: ICD-9-CM Osteopenia Name of Problem: Osteopenia ; Onset Date: 02/26/1987 ; Recorder: PATTI ALMENDAREZ LPN; Confirmation: Confirmed ; Classification: Nursing ; Code: 1231 ; Contributor System: PowerChart ; Last Updated: 10/25/2010 14:19 FIREBOAT OPERATOR ; Life Cycle Date: 10/25/2010 ; Life Cycle Status: Active ; Responsible Provider: PATTI ALMENDAREZ LPN; Vocabulary: ICD-9-CM Other and Unspecified Vaginal Hysterectomy Name of Problem: Other and Unspecified Vaginal Hysterectomy ; Onset Date: 02/26/1967 ; Recorder: PATTI ALMENDAREZ LPN; Confirmation: Confirmed ; Classification: Nursing ; Code: 1231 ; Contributor System: PowerChart ; Last Updated: 10/25/2010 14:22 FIREBOAT OPERATOR ; Life Cycle Date: 10/25/2010 ; Life Cycle Status: Active ; Responsible Provider: PATTI ALMENDAREZ LPN; Vocabulary: ICD-9-CM Other Repair of Bladder Name of Problem: Other Repair of Bladder ; Onset Date: 02/26/1995 ; Recorder: PATTI ALMENDAREZ LPN; Confirmation: Confirmed ; Classification: Nursing ; Code: 1231 ; Contributor System: PowerChart ; Last Updated: 11/04/2010 3:55 FIREBOAT OPERATOR ; Life Cycle Date: 10/25/2010 ; Life Cycle Status: Active ; Responsible Provider: PATTI ALMENDAREZ LPN; Vocabulary: ICD-9-CM Diagnoses(Active) Vertigo - recurrent Date: 01/14/2011 7:42 CDT ; Diagnosis Type: Reason For Visit ; Confirmation: Complaint of ; Classification: Medical ; Clinical Service: Emergency medicine ; Code: PNED ; Probability: 0 ; Diagnosis Code: [id number] Triage Mode of Arrival ED: Ambulance Track: Medical Languages: Armenian Pain Symptoms: Yes CATHIE KAY RN - [...] ; Type: Allergy ; Updated By: PATTI ALMENDRAEZ LPN; Reviewed Date: 12/31/2010 14:55 CDT Respiratory [...] KAY RN - 01/14/2011 7:55 CDT Source: [facility] [employer] Document Id: [id number] CDT!57 documented in this encounter ED Notes [...] SHINE RN - 01/14/2011 11:06 CDT Source: [employer] Document Id: [id number] CDT!14 Cathie Kay R.N. - 01/14/2011 10:57 [...] KAY RN - 01/14/2011 10:57 CDT Source: [employer] Document Id: [id number] CDT!7 Linnette Allison R.N. - 01/14/2011 9:50 AM CDT ED Treatments and Procedures Document Has Been Updated ED Treatments and Procedures Entered On: 01/14/2011 10:34 CDT Performed On: 01/14/2011 9:50 CDT by LINNETTE ALLISON RN Bladder Scanner Bladder Scan Volume Prevoid: 875mL LINNETTE ALLISON RN - 01/14/2011 10:35 CDT Source: [employer] Document Id: [id number] CDT!3 Jesus Alberto Troy P.A.-C. - 01/14/2011 [...] sites; axial skeleton (eg, hips, pelvis, spine) (46110) in 2009 at 75 Years. Comments: 10/25/2010 09:40 - CARMELO RHODES Hx: 39245 - BONE DEN HIPS/PEL/SP Mammogram ([id number]) in 2009 at 75 Years. Laminectomy approach to lumbar spine (041819956) in 2008 at 73 Years. Colonoscopy (998511452) in 2008 at 73 Years. Lipid panel This panel must include the following: Cholesterol, serum, total (96632), Lipoprotein, direct measurement, high density cholesterol (HDL cholesterol) (30777), Triglycerides (76529) (11414) in 2008 at 73 Years. Comments: 09/26/2010 16:45 - CARMELO RHODES Hx: 68523 - LIPID PANEL Extracapsular cataract removal with insertion of intraocular lens prosthesis (1 stage procedure), manual or mechanical technique (eg, irrigation and aspiration or phacoemulsification) (18434) in 2006 at 72 Years. Comments: 10/25/2010 20:26 - PATTI ALMENDAREZ DROPPER TANK STORAGE left Reduction mammaplasty (53742) in 1981 at 47 Years. Hysterectomy (714018645) in 1966 at 31 Years. Hemorrhoidectomy, internal and external, single column/group; (97119) in 195 at 24 Years. Family history: [...] % 43.5 % Lymph % 43.1 % Mckenzie % 8.9 % Eos % 4.0 % [...] or worsening symptoms. Counseled: Patient, Family. Source: [facility] POWERCHART Document Id: {[id number]} Cathie Kay R.N. - 01/14/2011 7:42 AM [...] System: PowerChart ; Last Updated: 10/25/2010 14:18 FIREBOAT OPERATOR ; Life Cycle Date: 10/25/2010 ; Life Cycle Status: Active ; Responsible Provider: PATTI ALMENDAREZ LPN; Vocabulary: ICD-9-CM Cataract NOS Name of Problem: Cataract NOS ; Recorder: PATTI ALMENDAREZ LPN; Confirmation: Confirmed ; Classification: Nursing ; Code: 1231 ; Contributor System: PowerChart ; Last Updated: 10/25/2010 14:21 FIREBOAT OPERATOR ; Life Cycle Date: 10/25/2010 ; Life Cycle Status: Active ; Responsible Provider: PATTI ALMENDAREZ LPN; Vocabulary: ICD-9-CM Celiac Disease Name of Problem: Celiac Disease ; Onset Date: 02/26/2007 ; Recorder: PATTI ALMENDAREZ LPN; Confirmation: Confirmed ; Classification: Nursing ; Code: 1231 ; Contributor System: PowerChart ; Last Updated: 10/25/2010 14:20 FIREBOAT OPERATOR ; Life Cycle Date: 10/25/2010 ; Life Cycle Status: Active ; Responsible Provider: PATTI ALMENDAREZ LPN; Vocabulary: ICD-9-CM Diverticulitis of large intestine Name of Problem: Diverticulitis of large intestine ; Onset Date: 10/28/2010 ; Recorder: ALBANIA VARMA RN, CNP; Confirmation: Confirmed ; Classification: Medical ; Code: 1231 ; Last Updated: 10/28/2010 10:30 FIREBOAT OPERATOR ; Life Cycle Date: 10/28/2010 ; Life Cycle Status: Active ; Responsible Provider: ALBANIA VRAMA RN, CNP; Vocabulary: ICD-9-CM Glaucoma Name of Problem: Glaucoma ; Recorder: PATTI ALMENDAREZ LPN; Confirmation: Confirmed ; Classification: Nursing ; Code: 1231 ; Contributor System: PowerChart ; Last Updated: 10/25/2010 14:18 FIREBOAT OPERATOR ; Life Cycle Date: 10/25/2010 ; Life [...] System: PowerChart ; Last Updated: 11/04/2010 3:49 FIREBOAT OPERATOR ; Life Cycle Date: 11/04/2010 ; Life Cycle Status: Active ; Responsible Provider: ALBANIA VARMA RN, CNP; Vocabulary: ICD-9-CM Osteopenia Name of Problem: Osteopenia ; Onset Date: 02/26/1987 ; Recorder: PATTI ALMENDAREZ LPN; Confirmation: Confirmed ; Classification: Nursing ; Code: 1231 ; Contributor System: PowerChart ; Last Updated: 10/25/2010 14:19 FIREBOAT OPERATOR ; Life Cycle Date: 10/25/2010 ; Life Cycle Status: Active ; Responsible Provider: PATTI ALMENDAREZ LPN; Vocabulary: ICD-9-CM Other and Unspecified Vaginal Hysterectomy Name of Problem: Other and Unspecified Vaginal Hysterectomy ; Onset Date: 02/26/1967 ; Recorder: PATTI ALMENDAREZ LPN; Confirmation: Confirmed ; Classification: Nursing ; Code: 1231 ; Contributor System: ValkeeChart ; Last Updated: 10/25/2010 14:22 FIREBOAT OPERATOR ; Life Cycle Date: 10/25/2010 ; Life Cycle Status: Active ; Responsible Provider: PATTI ALMENDAREZ LPN; Vocabulary: ICD-9-CM Other Repair of Bladder Name of Problem: Other Repair of Bladder ; Onset Date: 02/26/1995 ; Recorder: PATTI ALMENDAREZ LPN; Confirmation: Confirmed ; Classification: Nursing ; Code: 1231 ; Contributor System: PowerChart ; Last Updated: 11/04/2010 3:55 FIREBOAT OPERATOR ; Life Cycle Date: 10/25/2010 ; Life Cycle Status: Active ; Responsible Provider: PATTI ALMENDAREZ LPN; Vocabulary: ICD-9-CM Diagnoses(Active) Vertigo - recurrent Date: 01/14/2011 7:42 CDT ; Diagnosis Type: Reason For Visit ; Confirmation: Complaint of ; Classification: Medical ; Clinical Service: Emergency medicine ; Code: PNED ; Probability: 0 ; Diagnosis Code: [id number] Triage Chief Complaint Description: symptoms of vertigo and hx of diverticulitis Information Given By: Patient Accompanied By: EMS, Spouse Mode of Arrival ED: Ambulance Track: Medical Languages: Armenian Pain Symptoms: Yes Pain Medication Requested: No [...] Opening Response Nabil: Spontaneously Best Verbal Response Charlotte: Oriented Best Motor Response Nabil: Obeys simple commands Charlotte Coma Score: 15 CATHIE AKY RN - 01/14/2011 7:42 CDT ED Physician [...] KAY RN - 01/14/2011 7:42 CDT Source: Jaco Solarsi Document Id: [id number] CDT!39 documented in this encounter Miscellaneous Notes Miscellaneous - Cathie Kay RChelsey - 01/14/2011 10:57 AM CDT Valuables/Belongings Valuables/Belongings Entered On: 01/14/2011 10:57 CDT Performed On: 01/14/2011 10:57 CDT by CATHIE KAY RN Valuables/Belongings Belongingdaria Sent Home With: sent with patient CATHIE KAY RN - 01/14/2011 10:57 CDT Source: [facility] POWERCHART Document Id: [id number] CDT!3 Miscellaneous - Cathie Kay R.N. - [...] with Diagnosis Control: 12 Lynx Visit Level: 85421 Level 4 Treatments Prior to Arrival: IV insertion, Other: zofran 4 mg given at scene CATHIE KAY RN - 01/14/2011 10:58 CDT Source: [facility] POWERCHART Document Id: [id number] CDT!14 documented in this encounter Plan of Treatment Not on filedocumented as of this encounter Visit Diagnoses Not on filedocumented in this encounter
--- OUTSIDE RECORDS SUMMARY | 2022-05-23 11:34 | XMS_ITS | Encounter Summary ---
:1935 Author Organization [facility] Address [address] [place] [address] Care Team Providers Name Role Phone Unavailable Primary Care Provider Unavailable Encounter Details Date Type Department Care Team Description 12/18/2011 Hospital Encounter [facility]X [facility] [place] Varma, CYRIL, C.N.P., D. N.P. [address] [place] [address] (Wo rk) Social History Tobacco [...] APRN, C.NDannP. - 12/18/2011 12:00 AM CDT [id number] CHIEF COMPLAINT/REASON FOR VISIT Briana is a pleasant 76-year-old female who is being seen today per the request of Dr. Ayers for preoperative anesthetic clearance for right eye glaucoma surgery to be performed on December 21 at the [facility] in [place]. The patient has had glaucoma for greater [...] does have a history of a cystocele. PLANER HAND: The patient is postmenopausal. She had a [...] done by Dr. Andria velazquez at the [facility]. I did explain to her to hold [...] / Electronically Signed By: ALBANIA VARMA RN, PRODUCT MERCHANDISER On: 12/18/2011 02:03 PM Source: [facility] Document Id: [id number] documented in this encounter Miscellaneous Notes Miscellaneous - Alban[place] Varma APRN, C.N.P. - 12/18/2011 8:29 AM CDT Ambulatory Patient Summary [id number] [place] [address] Visit Information Name: BRIANA LEON Current Date: 12/18/2011 08:29:20 Physicians Attending Provider: ALBANIA VARMA RN, PRODUCT MERCHANDISER Primary Care Provider: ALBANIA VARMA RN, PRODUCT MERCHANDISER Your Medications Here is a list of [...] cap(s) at bedtime Oral as directed ID [id number] fluticasone nasal (Flonase 0.05 mg/inh nasal spray) [...] No Appointments found Your Goals/Additional instructions: Source: [facility] POWERCHART Document Id: [id number] Miscellaneous - Albania Varma APRN, C.N.P. - 12/18/2011 8:29 AM CDT Ambulatory Depart Summary [address] [address] Visit Information Name: CAROLYN, ARCHANA Visit Date: 12/18/2011 08:29:20 Attending Provider: ALBANIA VARMA RN, PRODUCT MERCHANDISER Primary Care Provider: ALBANIA VARMA RN, PRODUCT MERCHANDISER CAROLYNBRIANA Jimenez has been given the following [...] cap(s) at bedtime Oral as directed ID [id number] fluticasone nasal (Flonase 0.05 mg/inh nasal spray) [...] your provider for clarification. Additional Information: Source: [facility] POWERCHART Document Id: [id number] Miscellaneous - Conversion, Historical Provider Ser - [...] FUENTES LPN - 12/18/2011 7:57 CDT Source: [facility] POWERCHART Document Id: [id number] CDT!9 Miscellaneous - Conversion, Historical Provider Ser - 12/18/2011 7:51 AM CDT Adult Policy Intern Intake/History Adult Policy Intern Intake/History Entered On: 12/18/2011 7:54 CDT Performed On: 12/18/2011 7:51 CDT by TE FUENTES LPN Intake Chief Complaint : [facility] Temperature Core : 36.1C(Converted to: 97.0DegF) (LOW) [...] LPN; Reviewed Date: 11/26/2011 13:17 CDT Source: [facility] POWERCHART Document Id: [id number] CDT!34 documented in this encounter Plan of [...] MMOLL HXeGFR (MDRD) >60 (H) <=61 POWERCHART [id number] Comment: A GFR of <60 mL/min is [...]
--- OUTSIDE RECORDS SUMMARY | 2022-05-23 11:34 | XMS_ITS | Encounter Summary ---
:1935 Author Organization [facility] Address [address] [place] [address] Care Team Providers Name Role Phone Unavailable Primary Care Provider Unavailable Encounter Details Date Type Department Care Team Description 03/25/2011 Hospital Encounter HX [facility] Sagrario Johnston M.D. [address], [address] [phone] (Wo rk) Social History Tobacco [...] Prep Complete: Yes Jewelry/Piercing Removed: NA Makeup/Nail Taiwanese Removed: NA Oral Hygiene: Yes Preop Scrub AM of Surgery: NA Preop Scrub Night Prior to Surgery: Yes Prosthesis Removed: NA Surgical Prep Verified: NA Tampon Removed: NA Wearing Patient Gown: Yes TAMAR NIETO RN - 03/25/2011 7:24 CDT Patient Rights Grid Blood Consent Signed: SHANNA Surgical/Procedure Consent Signed: Yes TAMAR NIETO RN - 03/25/2011 7:24 CDT Family Location: Ed at home [phone] TAMAR NIETO RN - 03/25/2011 7:24 CDT [...] Patient verbalizes self, Patient wristband ID, Family/responsible green party ID Correct Procedure Site and Side: colonoscopy Correct Procedure Site/Side Verified By: Patient/responsible green party, Nurse, MD, Allied Health Staff Site Marking: N/A Pre-Procedure Pause Verbal Confirm. of: Procedure, Site, Side, Patient Position, Patient ID, SpecialSupplies/Equipment TAMAR NIETO RN - 03/25/2011 7:24 CDT [facility] Document Id: [id number] CDT!88 documented in this encounter Nursing Notes Tamar Nieto R.N. - 03/25/2011 7:34 AM CDT Day Surgery Admission History/Asmt Adult Day Surgery Admission History/Asmt Adult Entered On: 03/25/2011 7:43 CDT Performed On: 03/25/2011 7:34 CDT by TAMAR NIETO RN General Info Preferred Name: Kathryn Mode of Arrival: Ambulatory Accompanied By: Alone Preferred Communication Mode: Verbal Information Given By: Patient Languages: Pakistani Status: Patient denies TAMAR NIETO RN - [...] CDT Travel Within Last 14 Days: No TAMAR NIETO RN - 03/25/2011 7:34 CDT Nutrition Nutrition Risk Factors by History Adult: None Home Diet: Other: gluten and nut free Feeding Ability: Complete independence Eating Difficulties: None Appetite: Excellent TAMAR NIETO RN - 03/25/2011 7:34 CDT Home Environment Current Daily Living Assistance: None Living Situation: Board and retirement Equipment: None Sensory Deficits: None Mobility Assistance [...] Skin Integrity: Not intact Mucous Membrane Color: [place] Mucous Membrane Description: Moist Skin Color: Normal for ethnicity Skin Description: Dry Skin Temperature: Warm TAMAR NIETO RN - 03/25/2011 7:34 CDT Incision/Wound Incision/Wound Care Grid Wound Numberin Activity: Dressing intact Type: Abrasion, Bruising Location: Lower leg Laterality: Right TAMAR NIETO RN - 03/25/2011 7:34 CDT Source: [facility] Document Id: [id number] CDT!170 documented in this encounter OR Notes Op Note - Sagrario Noland M.D. - 03/25/2011 12:00 AM CDT [id number] Preoperative Diagnosis: 1) Recent flare up of diverticulitis. 2) History of colon polyps. Postoperative Diagnosis: Sigmoid diverticulosis - no evidence of inflammation. Procedure Performed: Colonoscopy. Surgeon: Sagrario Noland M.D. Anesthesia: I.V. sedation with MAC. Indications: This [id number]-old female had two recent flare ups of [...] NOLAND MD On: 03/25/2011 11:21 AM Source: [facility] MHSDOLBEYNONRADSYS Document Id: [id number] documented in this encounter Miscellaneous Notes Miscellaneous - Dejah Forbes R.N. - 10/06/2012 2:12 PM CST Reminder Msg From: DEJAH FORBES RN ([place] Colonoscopy [place]) To: [place] Colonoscopy [place]; Sent: 10/06/2012 14:11:59 CONTACT CENTER REPRESENTATIVE Show up: 10/06/2012 14:11:00 CONTACT CENTER REPRESENTATIVE Subject: Reminder Msg Due Date/Time: 04/01/2021 14:11:00 CDT Please Remember to: Repeat colonoscopy in ten years. PATIENT: ( ) Call Patient ( ) Ask Patient to ( ) ( ) Call Relative ( ) Schedule Patient ( ) ( ) Call for Gear Machine Operator General ( ) Follow up on Results ( ) Other: PROVIDER: ( ) Call Physician ( ) Call Pharmacist ( ) Call Lab ( ) Other: Special Instructions: Comments: Source: [facility] POWERCHART Document Id: [id number] Electronically signed by Conversion, [facility] Stock Manager [id number] at 02/15/2017 3:18 PM CDT Miscellaneous - Conversion, Historical Provider Ser - 03/25/2011 9:54 AM CDT Ambulatory Patient Summary [id number] [place] [address] Visit Information Name: KATHRYN LEON Current Date: 03/25/2011 09:54:00 Primary Care Provider: MARY VARMA RN, VALVE REPAIRER Your Medications Here is a list of [...] Date Time Location Reason Provider 04/07/2011 09:30 [facility] Family Med FU ON DIVERTICULITUS Mary Lu 04/07/2011 09:30 [facility] Family Med FU ON DIVERTICULITUS AND STITCHES REMOVED Mary Lu Your Goals/Additional instructions: Source: [facility] POWERThe [employer] Document Id: [id number] Miscellaneous - Conversion, Historical Provider Ser - 03/25/2011 9:53 AM CDT Ambulatory Depart Summary [address] [address] Visit Information Name: CAROLYN ARCHANA Current Date: 03/25/2011 09:53:59 Primary Care Provider: MARY VARMA RN, VALVE REPAIRER CAROLYN KATHRYN BANDA has been given the [...] two times a day Additional Information: Source: [facility] POWERCHART Document Id: [id number] Miscellaneous - Conversion, Historical Provider Ser - [...] Cardiovascular Heart Rhythm: Regular Nail Bed Color: [place] Edema: None Capillary Refill: Less than 2 [...] Elastic Skin Integrity: Intact Mucous Membrane Color: [place] Mucous Membrane Description: Moist Skin Color: Normal [...] TAN RN - 03/25/2011 9:48 CDT Source: [facility] Document Id: [id number] CDT!90 Miscellaneous - Conversion, Historical Provider Ser [...] Cardiovascular Heart Rhythm: Regular Nail Bed Color: [place] Edema: None Capillary Refill: Less than 2 [...] Elastic Skin Integrity: Intact Mucous Membrane Color: [place] Mucous Membrane Description: Moist Skin Color: Normal [...] Site Condition: No complications Drainage Description: None DOMINCIK OSMAR Howard RN - 03/25/2011 9:17 CDT [...] Howard RN - 03/25/2011 9:17 CDT Source: [facility] Document Id: [id number] CDT!86 documented in this encounter Plan of Treatment Not on filedocumented as of this encounter Visit Diagnoses Not on filedocumented in this encounter
--- OUTSIDE RECORDS SUMMARY | 2022-05-23 11:34 | XMS_ITS | Encounter Summary ---
:1935 Author Organization [facility] Address [address] [place] [address] Care Team Providers Name Role Phone Unavailable [...] Historical Provider Ser - 09/14/2010 12:00 AM DIRECTOR MUSIC [id number] IOD processed records. Source: [facility] RWHXTRANSXRTFSYS Document Id: [id number] documented in this encounter Plan of Treatment Not on filedocumented as of this encounter Visit Diagnoses Not on filedocumented in this encounter
--- OUTSIDE RECORDS SUMMARY | 2022-05-23 11:34 | XMS_ITS | Encounter Summary ---
:1935 Author Organization [facility] Address [address] [place] [address] Care Team Providers Name Role Phone Unavailable Primary Care Provider Unavailable Encounter Details Date Type Department Care Team Description 08/14/2010 Hospital Encounter [facility] INPT[facility]OBSRV Harriet Cortez, CYRIL, C.N.P., D.N.P. [address] [place] [phone] (Wo rk) Social History Tobacco Use Types Packs/Day Years Used Date Smoking Tobacco: Never Assessed Sex Assigned at Date Recorded Not on file documented as of this encounter Plan of Treatment Not on filedocumented as of this encounter Visit Diagnoses Not on filedocumented in this encounter
--- OUTSIDE RECORDS SUMMARY | 2022-05-23 11:34 | XMS_ITS | Encounter Summary ---
:1935 Author Organization [facility] Address [address] [place] [address] Care Team Providers Name Role Phone Unavailable Primary Care Provider Unavailable Encounter Details Date Type Department Care Team Description 09/23/2011 Hospital Encounter HX [facility] [place] Varma, CYRIL, C.N.P., D. N.P. [address] [place] [address] (Wo rk) Social History Tobacco Use Types Packs/Day Years Used Date Smoking Tobacco: Never Assessed Sex Assigned at Date Recorded Not on file documented as of this encounter Last Filed Vital Signs Vital Sign Reading Time Taken Comments Blood Pressure 106/70 09/23/2011 9:34 AM INVESTIGATIVE RESEARCH SPECIALIST Pulse 80 09/23/2011 9:34 AM INVESTIGATIVE RESEARCH SPECIALIST Temperature - - Respiratory Rate 16 09/23/2011 9:34 AM INVESTIGATIVE RESEARCH SPECIALIST Oxygen Saturation - - Inhaled Oxygen Concentration - - Weight 74.8 kg (164 lb 14.5 oz) 09/23/2011 9:34 AM INVESTIGATIVE RESEARCH SPECIALIST Height - - Body Mass Index - [...] APRN, Geovanni. - 09/23/2011 12:00 AM CST [id number] CHIEF COMPLAINT/REASON FOR VISIT 1. Medication refill. [...] /joby Electronically Signed By: ALBANIA VARMA RN, GINNER HELPER On: 10/01/2011 07:34 AM Source: [facility] MHSDOLBEYNONRADSYS Document Id: [id number] STIGATIVE RESEARCH SPECIALIST documented in this encounter Miscellaneous Notes Miscellaneous - Ana Hoang L.P.N. - 09/23/2011 9:34 AM CST Adult Clerical Manager Intake/History Adult Clerical Manager Intake/History Entered On: 09/23/2011 9:39 INVESTIGATIVE RESEARCH SPECIALIST Performed On: 09/23/2011 9:34 INVESTIGATIVE RESEARCH SPECIALIST by ANA HOANG LPN Intake Chief Complaint [...] 74.80kg ANA HOANG LPN - 09/23/2011 9:34 INVESTIGATIVE RESEARCH SPECIALIST Subjective Pain Symptoms : No ANA HOANG LPN - 09/23/2011 9:34 INVESTIGATIVE RESEARCH SPECIALIST Dependent Habits Tobacco Use/Currently Using : No Smoking Status : Never smoker ANA HOANG LPN - 09/23/2011 9:34 INVESTIGATIVE RESEARCH SPECIALIST Caffeine Use Grid Caffeine Use : Current Type : Coffee Frequency : Weekly ANA HOANG LPN - 09/23/2011 9:34 INVESTIGATIVE RESEARCH SPECIALIST Recreational Drug Use Grid Drug Use : None ANA HOANG LPN - 09/23/2011 9:34 INVESTIGATIVE RESEARCH SPECIALIST Allergy Allergies (Active) Glutens Estimated Onset Date: Unspecified ; Created By: PATTI ALMENDAREZ LPN; Reaction Status: Active; Category: Drug ; Substance: Glutens ; Type: Allergy ; Updated By: PATTI ALMENDAREZ LPN; Reviewed Date: 09/23/2011 9:31 INVESTIGATIVE RESEARCH SPECIALIST Nuts Estimated Onset Date: Unspecified ; Created By: PATTI ALMENDAREZ LPN; Reaction Status: Active ; Category: Food ; Substance: Nuts ; Type: Allergy ; Updated By: PATTI ALMENDAREZ LPN; Reviewed Date: 09/23/2011 9:31 INVESTIGATIVE RESEARCH SPECIALIST Source: [facility] POWERCHART Document Id: [id number] INVESTIGATIVE RESEARCH SPECIALIST!29 STIGATIVE RESEARCH SPECIALIST documented in this encounter Plan of Treatment Not on filedocumented as of this encounter Procedures Procedure Name Priority Date/Time Associated Comments Diagnosis AUTOMATED Routine 09/23/2011 10:40 Results for this DIFFERENTIAL, B AM INVESTIGATIVE RESEARCH SPECIALIST procedure ar e in the results section. CBC WITH DIFFERENTIAL, Routine 09/23/2011 10:40 R esults for this B AM INVESTIGATIVE RESEARCH SPECIALIST procedure are i n the results section. THYROID-STIMULATING Routine 09/23/2011 10:40 Resu lts for this HORMONE-SENSITIVE AM INVESTIGATIVE RESEARCH SPECIALIST procedure are in (S-TSH) the results section. COMPREHENSIVE Routine 09/23/2011 10:40 Results fo r this METABOLIC PANEL, S/P AM INVESTIGATIVE RESEARCH SPECIALIST procedu re are in the results section. documented in this encounter Results (ABNORMAL) Automated Differential (09/23/2011 10:40 AM INVESTIGATIVE RESEARCH SPECIALIST) [facility] gist Method Time Signature Neutro % 41.4 (L) 42.0 - POWERCHART 77.0 Lymphocytes % 43.7 23.0 - POWERCHART 44.0 HX [place] % 12.1 (H) 2.0 - 11.0 POWERCHART [...] Volume Laterality Blood 09/23/2011 10:40 09/23/2011 AM INVESTIGATIVE RESEARCH SPECIALIST 10:40 AM INVESTIGATIVE RESEARCH SPECIALIST [place] Varma APRN, C.N.P., D.N.P. LAB BLOOD ADD-ON Performing Organization Address City/State/ZIP Code Phon e Number POWERCHART (ABNORMAL) CBC with Differential (09/23/2011 10:40 AM INVESTIGATIVE RESEARCH SPECIALIST) Analysis Performed At Patho logist Time Signature [...] / Volume Laterality Blood 09/23/2011 10:40 AM INVESTIGATIVE RESEARCH SPECIALIST [place] Varma APRN, C.N.P., D.N.P. LAB BLOOD ADD-ON Performing Organization Address City/State/ZIP Code Phon e Number POWERCHART (ABNORMAL) CMP (Comprehensive Metabolic Panel) (09/23/2011 10:40 AM INVESTIGATIVE RESEARCH SPECIALIST) Patholo gist Method Time Signature Alanine 45 [...] MMOLL HXeGFR (MDRD) >60 (H) <=61 POWERCHART [id number] 2 Comment: A GFR of <60 mL/min [...] / Volume Laterality Blood 09/23/2011 10:40 AM INVESTIGATIVE RESEARCH SPECIALIST [place] Varma APRN, C.N.P., D.N.P. LAB BLOOD ADD-ON Performing Organization Address City/State/ZIP Code Phon e Number POWERCHART Thyroid-Stimulating Hormone-Sensitive (s-TSH) (09/23/2011 10:40 AM INVESTIGATIVE RESEARCH SPECIALIST) P athologist Signature TSH 1.79 0.30 - 5.00 POWERCHART (Thyrotropin) MCIUML Specimen (Source) Anatomical Collection Method Collection Time Re ceived Time Location / / Volume Laterality Blood 09/23/2011 10:40 AM INVESTIGATIVE RESEARCH SPECIALIST [place] Varma APRN, C.N.P., D.N.P. LAB BLOOD ADD-ON Performing Organization Address City/State/ZIP Code Phon e Number POWERCHART documented in this encounter Visit Diagnoses Not on filedocumented in this encounter
--- OUTSIDE RECORDS SUMMARY | 2022-05-23 11:34 | XMS_ITS | Encounter Summary ---
:1935 Author Organization [facility] Address [address] [place] [address] Care Team Providers Name Role Phone Unavailable Primary Care Provider Unavailable Encounter Details Date Type Department Care Team Description 12/16/2010 Hospital Encounter [facility] [place] Varma APRN, C.N.P., D. N.P. [address] [place] [address] (Wo rk) Social History Tobacco [...] APRN, C.N.P. - 12/16/2010 12:00 AM CDT [id number] CHIEF COMPLAINT/REASON FOR VISIT Kathryn is a [...] /heather Electronically Signed By: ALBANIA VARMA RN, [employer]INT [employer] CHIEF CLERK On: 12/22/2010 09:27 Source: [facility] MARCUS Document Id: [id number] documented in this encounter Miscellaneous Notes Miscellaneous [...] Use: Current Type: Coffee Frequency: Weekly SUJATHA BATISTA LPN - 12/18/2010 14:01 CDT Recreational Drug Use Grid Drug Use: None SUJATHA BATISTA LPN - 12/18/2010 14:01 CDT Psychosocial Domestic Concerns: None SUJATHA BATISTA LPN - 12/18/2010 14:01 CDT Advance Directive Advanced Directives: No SUJATHA BATISTA LPN - 12/18/2010 14:01 CDT Educ Needs Learning Style Preference Adult Grid Patient: Demonstration Family: Alphonso SUJATHA BATISTA LPN - 12/18/2010 14:01 CDT Source: [facility] POWERCHART Document Id: [id number] CDT!23 Miscellaneous - Sujatha Batista L.PDannNDann - 12/18/2010 1:55 PM CDT Adult Dairy Feed Mixing Operator Intake/History Adult Dairy Feed Mixing Operator Intake/History Entered On: 12/18/2010 14:01 CDT Performed [...] PATTI ALMENDAREZ LPN; Reviewed Date: 11/04/2010 9:42 SCULPTURE CONSERVATOR Nuts Estimated Onset Date: Unspecified ; Created By: PATTI ALMENDAREZ LPN; Reaction Status: Active ; Category: Food ; Substance: Nuts ; Type: Allergy ; Updated By: PATTI ALMENDAREZ LPN; Reviewed Date: 11/04/2010 9:42 SCULPTURE CONSERVATOR Source: [facility] POWERCHART Document Id: [id number] CDT!27 documented in this encounter Plan of Treatment Not on filedocumented as of this encounter Visit Diagnoses Not on filedocumented in this encounter
--- OUTSIDE RECORDS SUMMARY | 2022-05-23 11:34 | XMS_ITS | Encounter Summary ---
:1935 Author Organization [facility] Address [address] [place] [address] Care Team Providers Name Role Phone Unavailable Primary Care Provider Unavailable Encounter Details Date Type Department Care Team Description 01/05/2012 Hospital Encounter HX [facility] ED Tammy Aceves Jr., M.D. [address] [place] [address] 5057 (Wo rk) Social History Tobacco Use [...] 01/05/2012 7:04 PM CDT ED Discharge Instructions [id number] [place] [address] Name: KATHRYN LEON Date of : 1935 12:00 AM Visit Date: 01/05/2012 6:07 PM Address: [address] [place] [phone] Primary Care Provider: ALBANIA VARMA RN, HOUSEKEEPING ASSOCIATE IMPORTANT: [facility] in [place] would like to thank you for allowing us to assist you with your healthcare needs. The following includes patient education materials and informationregarding your injury/illness. Chief Complaint: EYE INJURY Follow-Up Instructions: With: Address: When: ALBANIA VARMA [address] [place] [address] Materialise (1) Within As Needed Comments: With: Address: When: with eye md tomorrow or sooner as needed Within As Needed Comments: Patient Education Materials: [id number] GLAUCOMA, Open Angle [Chronic] The eye is [...] your life. Regular follow-up care with an mail carrier (a medical doctor who specializes in eye [...] pain or redness ?? Severe headache ?? [place] halos around lights Sudden loss of vision ?? [phone] [employer], [address] [place] [address]. All rights reserved. This information is not [...] cap(s) at bedtime Oral as directed ID [id number] brdrsfluticasone nasal (Flonase 0.05 mg/inh nasal spray) [...] a ride home with a responsible democrat. I, KATHRYN LEON , or responsible democrat have [...] document has images extracted. Please consider using [employer] for all your patient education needs. Source: [facility] [employer] Document Id: [id number] Conversion, Historical Provider Ser - 01/05/2012 7:04 PM CDT ED Depart Summary [facility] Emergency Department Clinical Discharge Summary PERSON INFORMATION Name KATHRYN LEON Age 76 Years 1935 12:00 AM Sex Female Language Vincentian PCP ALBANIA VARMA RN, HOUSEKEEPING ASSOCIATE Marital Status Visit Id Visit Reason EYE INJURY Specialty Enc Type Emergency Med Service Emergency Medicine Referred by Track Group [facility] ED Discharge 01/05/2012 7:00 PM Tracking Id [id number] Checkout 01/05/2012 7:00 PM Checkin 01/05/2012 6:07 PM Acuity Dispo Type * Discharged to Home or Self Care Arrival 01/05/2012 6:07 PM Reg Status LOS 000 00:53 Address: [address] [place] [phone] Comment: PROVIDER INFORMATION Provider Role Provider Contact Time SUSI ALVAREZ ED Nurse 01/05/12 18:14 DIAGNOSIS Comment: PATIENT EDUCATION INFORMATION Instructions: GLAUCOMA, Open Angle (Chronic) Follow up: With: Address: When: ALBANIA VARMA [address] [place], [place] [id number] [facility] (5) Within As Needed Comments: With: Address: When: with eye md tomorrow or sooner as needed Within As Needed Comments: Source: [facility] POWERCHART Document Id: [id number] documented in this encounter Medications at Time [...] SUSI ALVAREZ - 01/05/2012 18:53 CDT Source: [facility] Peer[employer]CHART Document Id: [id number] CDT!3 Conversion, Historical Provider Ser - 01/05/2012 6:35 PM CDT ED Primary Assessment ED Primary Assessment Entered On: 01/05/2012 18:39 CDT Performed On: 01/05/2012 18:35 CDT by SUSI ALVAREZ Reason For Visit Problems(Active) Allergic rhinitis, unspecified Name of Problem: Allergic rhinitis, unspecified ; Onset Date: 1952 ; Recorder: PATTI ALMENDAREZ LPN; Confirmation: Confirmed ; Classification: Nursing ; Code: 1231 ; Contributor System: [employer] ; Last Updated: 01/21/2011 10:04 CDT ; Life Cycle Date: 10/25/2010 ; Life Cycle Status: Active ; Responsible Provider: PATTI ALMENDAREZ LPN; Vocabulary: ICD-9-CM ; Comments: 12/31/2010 12:10 - PATTI ALMENDAREZ LPN date unk Arthritis, rheumatoid* Name of Problem: Arthritis, rheumatoid* ; Onset Date: 02/27/1980 ; Recorder: PATTI ALMENDAREZ LPN; Confirmation: Confirmed ; Classification: Nursing ; Code: 1231 ; Contributor System: [employer] ; Last Updated: 10/25/2010 20:18 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 OF 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 ; Life Cycle Date: 10/25/2010 ; Life Cycle Status: Active ; Responsible Provider: PATTI ALMENDAREZ LPN; Vocabulary: ICD-9-CM Bursitis Hip/Trochanertic Name of Problem: Bursitis Hip/Trochanertic ; Onset Date: 10/20/2011 ; Recorder: ALBANIA VARMA RN, HOUSEKEEPING ASSOCIATE; Confirmation: Confirmed ; Classification: Medical ; Code: 1231 ; Last Updated: 10/20/2011 9:54 PROFESSOR OF MUSICOLOGY ; Life Cycle Status: Active ; Responsible Provider: ALBANIA VARMA RN, CNP; Vocabulary: ICD-9-CM Cataract NOS Name of Problem: Cataract NOS ; Onset Date: 1991 ; Recorder: PATTI ALMENDAREZ LPN; Confirmation: Confirmed ; Classification: Nursing ; Code: 1231 ; Contributor System: [employer] ; Last Updated: 01/21/2011 10:04 CDT ; Life Cycle Date: 10/25/2010 ; Life Cycle Status: Active ; Responsible Provider: PATTI ALMENDAREZ LPN; Vocabulary: ICD-9-CM ; Comments: 12/31/2010 12:11 - PATTI ALMENDAREZ LPN date unknown Celiac Disease Name of Problem: Celiac Disease ; Onset Date: 02/26/2007 ; Recorder: PATTI ALMENDAREZ LPN; Confirmation: Confirmed ; Classification: Nursing ; Code: 1231 ; Contributor System: [employer] ; Last Updated: 10/25/2010 20:20 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 OF 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 ; Life Cycle Date: 10/25/2010 ; Life Cycle Status: Active ; Responsible Provider: PATTI ALMENDAREZ LPN; Vocabulary: ICD-9-CM Diverticulitis of large intestine Name of Problem: Diverticulitis of large intestine ; Onset Date: 10/28/2010 ; Recorder: ALBANIA VARMA RN, CNP; Confirmation: Confirmed ; Classification: Medical ; Code: 1231 ; Last Updated: 10/28/2010 16:30 PROFESSOR OF MUSICOLOGY ; Life Cycle Status: Active ; Responsible [...] Medical ; Code: 1231 ; Contributor System: [employer] ; Last Updated: 11/04/2010 9:49 PROFESSOR OF MUSICOLOGY ; Life Cycle Date: 11/04/2010 ; Life Cycle Status: Active ; Responsible Provider: ALBANIA VARMA RN, HOUSEKEEPING ASSOCIATE; Vocabulary: ICD-9-CM ; Comments: 12/31/2010 12:11 - FRANK ALMENDAREZ LPN date unknown Osteopenia Name of Problem: Osteopenia ; Onset Date: 02/26/1987 ; Recorder: PATTI ALMENDAREZ LPN; Confirmation: Confirmed ; Classification: Nursing ; Code: 1231 ; Contributor System: [employer] ; Last Updated: 10/25/2010 20:19 PROFESSOR OF MUSICOLOGY ; Life Cycle Date: 10/25/2010 ; Life Cycle Status: Active ; Responsible Provider: PATTI ALMENDAREZ LPN; Vocabulary: ICD-9-CM Diagnoses(Active) Eye pain Date: 01/05/2012 ; Diagnosis Type: Reason For Visit ; Confirmation: Complaint of ; ClinicalDx: Eye pain ; Classification: Medical ; Clinical Service: Non-Specified ; Code: PNED ; Probability:0 ; Diagnosis Code: [id number] Triage Chief Complaint Description : patient having eye pain after placing drops in her eye. Patient had animplant to help with her glaucoma Information Given By : Patient Accompanied By : Significant other Mode of Arrival ED : Private vehicle Track : Medical Languages : Vincentian Vital Signs Assessed : Yes SUSI ALVAREZ [...] CDT DCP GENERIC CODE Tracking Group : [facility] ED SUSI ALVAREZ 01/05/2012 18:35 CDT Allergy [...] Regular Respiratory Detailed Assessment : Yes SUSI ALVAREZ 01/05/2012 18:35 CDT Resp Detailed Breath Sounds [...] None SUSI ALVAREZ 01/05/2012 18:35 CDT [facility] Document Id: [id number] CDT!66 documented in this encounter ED Notes Conversion, Historical Provider Ser - 01/05/2012 6:53 PM CDT ED Disposition Summary ED Disposition Summary Entered On: 01/05/2012 18:53 CDT Performed On: 01/05/2012 18:53 CDT by SUSI ALVAREZ ED Disposition Summary Printed Discharge Instructions Given to Patient : Yes Patient Status at Discharge from ED : Unchanged SUSI ALVAREZ - 01/05/2012 18:53 CDT Source: [facility] [employer] Document Id: [id number] CDT!4 Tammy Aceves Jr., M.D. - 01/05/2012 [...] 3 cap(s) at bedtime, PO, [place] [id number], 360 cap(s) omeprazole (omeprazole 40 mg oral [...] (365.9): Resolved. Surgical history: Surgical history. Mammogram ([id number]) in 2011 at 77 Years. Diagnostic colonoscopy ([id number]) in 2010 at 76 Years. Comments: 03/25/2011 08:49 - SAGRARIO NOLAND MD Sigmoid diverticulosis--not inflamed. Mammogram ([id number]) in 2009 at 75 Years. Mammogram ([id number]) in 2009 at 75 Years. Laminectomy approach to lumbar spine (343953546) in 2008 at 74 Years. Colonoscopy ([id number]) in 2008 at 73 Years. Extracapsular cataract removal with insertion of intraocular lens prosthesis (1 stage procedure), manual or mechanical technique (eg, irrigation and aspiration or phacoemulsification) (86990) in 2006 at 72 Years. Comments: 10/25/2010 20:26 - ERICKSONPATTI Alek SENIOR COURTROOM CLERK left Repair of cystocele ([id number]) in 1994 at 60 Years. Reduction mammaplasty () in 1981 at 47 Years. Hysterectomy ([id number]) in 1966 at 31 Years. Comments: 03/25/2011 08:51 - SAGRARIO NOLAND MD Vaginal Hemorrhoidectomy, internal and external, single column/group; (61017) in 1959 at 24 Years. Family history: [...] pain (Discharge, Emergency medicine, Medical) Discussed with production proofreader eye physician who advised follow up with [...] ACEVES MD On: 01/05/2012 07:06 PM Source: [facility] POWERCHART Document Id: [id number]} Conversion, Historical Provider Ser - 01/05/2012 6:14 PM CDT ED Triage Assessment ED Triage Assessment Entered On: 01/05/2012 18:17 CDT Performed On: 01/05/2012 18:14 CDT by SUSI ALVAREZ Reason For Visit Problems(Active) Allergic rhinitis, unspecified Name of Problem: Allergic rhinitis, unspecified ; Onset Date: 1952 ; Recorder: PATTI ALMENDAREZ LPN; Confirmation: Confirmed ; Classification: Nursing ; Code: 1231 ; Contributor System: [employer] ; Last Updated: 01/21/2011 10:04 CDT ; Life Cycle Date: 10/25/2010 ; Life Cycle Status: Active ; Responsible Provider: PATTI ALMENDAREZ LPN; Vocabulary: ICD-9-CM ; Comments: 12/31/2010 12:10 - PATTI ALMENDAREZ LPN date unk Arthritis, rheumatoid* Name of Problem: Arthritis, rheumatoid* ; Onset Date: 02/27/1980 ; Recorder: PATTI ALMENDAREZ LPN; Confirmation: Confirmed ; Classification: Nursing ; Code: 1231 ; Contributor System: [employer] ; Last Updated: 10/25/2010 20:18 PROFESSOR OF 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 ; Life Cycle Date: 10/25/2010 ; Life Cycle Status: Active ; Responsible Provider: PATTI ALMENDAREZ LPN; Vocabulary: ICD-9-CM Bursitis Hip/Trochanertic Name of Problem: Bursitis Hip/Trochanertic ; Onset Date: 10/20/2011 ; Recorder: ALBANIA VARMA RN, CNP; Confirmation: Confirmed ; Classification: Medical ; Code: 1231 ; Last Updated: 10/20/2011 9:54 PROFESSOR OF MUSICOLOGY ; Life Cycle Status: Active ; Responsible [...] System: Power[employer] ; Last Updated: 10/25/2010 20:20 PROFESSOR OF MUSICOLOGY ; Life Cycle Date: 10/25/2010 ; Life Cycle Status: Active ; Responsible Provider: PATTI ALMENDAREZ LPN; Vocabulary: ICD-9-CM Diverticulitis of large intestine Name of Problem: Diverticulitis of large intestine ; Onset Date: 10/28/2010 ; Recorder: ALBANIA VARMA RN, CNP; Confirmation: Confirmed ; Classification: Medical ; Code: 1231 ; Last Updated: 10/28/2010 16:30 PROFESSOR OF MUSICOLOGY ; Life Cycle Status: Active ; Responsible [...] System: PowerChart ; Last Updated: 11/04/2010 9:49 PROFESSOR OF MUSICOLOGY ; Life Cycle Date: 11/04/2010 ; Life Cycle Status: Active ; Responsible Provider: ALBANIA VARMA RN, HOUSEKEEPING ASSOCIATE; Vocabulary: ICD-9-CM ; Comments: 12/31/2010 12:11 - FRANK ALMENDAREZ LPN date unknown Osteopenia Name of Problem: Osteopenia ; Onset Date: 02/26/1987 ; Recorder: PATTI ALMENDAREZ LPN; Confirmation: Confirmed ; Classification: Nursing ; Code: 1231 ; Contributor System: [employer] ; Last Updated: 10/25/2010 20:19 PROFESSOR OF MUSICOLOGY ; Life Cycle Date: 10/25/2010 ; Life Cycle Status: Active ; Responsible Provider: PATTI ALMENDAREZ LPN; Vocabulary: ICD-9-CM Diagnoses(Active) Eye pain Date: 01/05/2012 ; Diagnosis Type: Reason For Visit ; Confirmation: Complaint of ; ClinicalDx: Eye pain ; Classification: Medical ; Clinical Service: Non-Specified ; Code: PNED ; Probability:0 ; Diagnosis Code: [id number] Triage Chief Complaint Description : eye pain had eye surgery two weeks ago Information Given By : Patient Accompanied By : Significant other Mode of Arrival ED : Private vehicle Track : Medical Languages : Vincentian SUSI ALVAREZ - 01/05/2012 18:14 CDT Pain Assessment Pain Symptoms : Yes Pain Medication Requested : SUSI Ricardo 01/05/2012 18:14 CDT CAMI CAMI Level 1 : No CAMI Level 2 : No CAMI Level 3 : One SUSI ALVAREZ - 01/05/2012 18:14 CDT DCP GENERIC CODE Tracking Group : [facility] SUSI ALVAREZ 01/05/2012 18:14 CDT Allergy Allergies [...] TANIKA ALVAREZA - 01/05/2012 18:14 CDT Source: [employer] Document Id: [id number] CDT!23 documented in this encounter Miscellaneous Notes Miscellaneous - Conversion, Historical Provider Ser - 01/05/2012 6:53 PM CDT Valuables/Belongings Valuables/Belongings Entered On: 01/05/2012 18:53 CDT Performed On: 01/05/2012 18:53 CDT by SUSI ALVAREZ Valuables/Belongingdaria Home Medication Disposition : None brought in with patient ALVAREZTANIKAA - 01/05/2012 18:53 CDT Source: [employer] Document Id: [id number] CDT!3 Miscellaneous - Conversion, Historical Provider Ser - 01/05/2012 6:07 PM CDT Facility Charge Ticket Facility Charge Ticket Entered On: 01/05/2012 18:53 CDT Performed On: 01/05/2012 18:07 CDT by SUSI ALVAREZ Facility Charge Lynx Disposition : Discharge Lynx Total Points with Diagnosis Control : 5 Lynx Visit Level : 23300 Level 3 WESLEY PONCE - 01/12/2012 13:28 CDT TVL Level for Facility Charge Ticket : Level 3 Mode of Arrival ED : Private vehicle Lynx Mode of Arrival Interpreted : Standard Lynx Process Management : None Lynx Order Management : None 30 Minutes Critical Care : No Lynx Nursing Assessment : Triage and 1-2 nursing assessments SUSI ALVAREZ - 01/05/2012 18:53 CDT Source: [employer] Document Id: [id number] CDT!5 documented in this encounter Plan of Treatment Not on filedocumented as of this encounter Visit Diagnoses Not on filedocumented in this encounter
--- OUTSIDE RECORDS SUMMARY | 2022-05-23 11:34 | XMS_ITS | Encounter Summary ---
:1935 Author Organization [facility] Address [address] [place] [address] Care Team Providers Name Role Phone Unavailable Primary Care Provider Unavailable Encounter Details Date Type Department Care Team Description 10/23/2010 Hospital Encounter HX NO MAPPING Skylar Brush M.D. [address] [place] [phone] (Wo rk) Social History Tobacco Use Types Packs/Day Years Used Date Smoking Tobacco: Never Assessed Sex Assigned at Date Recorded Not on file documented as of this encounter Miscellaneous Notes Miscellaneous - Seda Villavicencio - 02/22/2014 7:19 AM CDT Custom Result Letter 22 February 2014 BRIANA LEON [address] [facility] [phone] Dear BRIANA LEON, Our records indicate that you are due for your Colorectal Screening. Please contact your primary care team at [phone] to discuss the best screening option for [...] 2014 This document has images extracted. Source: [facility] POWERCHART Document Id: [id number] documented in this encounter Plan of Treatment Not on filedocumented as of this encounter Visit Diagnoses Not on filedocumented in this encounter
--- OUTSIDE RECORDS SUMMARY | 2022-05-23 11:34 | XMS_ITS | Encounter Summary ---
:1935 Author Organization [facility] Address [address] [place] [address] Care Team Providers Name Role Phone Unavailable Primary Care Provider Unavailable Encounter Details Date Type Department Care Team Description 07/29/2011 Hospital Encounter [facility]X [facility] Albania Varma APRN, C.N.P., D. N.P. [address] [place] [address] (Wo rk) Social History Tobacco [...] APRN, C.N.P. - 07/29/2011 12:00 AM CST [id number] CHIEF COMPLAINT/REASON FOR VISIT 1. Rash. HISTORY [...] /joby Electronically Signed By: ALBANIA VARMA RN, SHOPPER On: 08/05/2011 04:59 AM Source: [facility] MHSDOLBEYNONRADSYS Document Id: [id number] SIGMA BLACK TRAINER documented in this encounter Miscellaneous Notes Miscellaneous - Albania Varma APRN, C.N.P. - 07/29/2011 2:52 PM CST Ambulatory Patient Summary [phone] [place] [address] Visit Information Name: BRIANA ELON Current Date: 07/29/2011 14:52:37 Primary Care Provider: ALBANIA VARMA RN, SHOPPER Your Medications Here is a list of [...] Appointments found Your Goals/Additional instructions: Source: [facility] POWERCHART Document Id: [id number] SIGMA BLACK TRAINER Miscellaneous - Albania Varma APRN, C.N.P. - 07/29/2011 2:52 PM CST Ambulatory Depart Summary [phone] [place] [address] Visit Information Name: BRIANA LEON Current Date: 07/29/2011 14:52:36 Primary Care Provider: ALBANIA VARMA RN, SHOPPER BRIANA LEON has been given the following [...] to the patient and/or family, guardian/caregiver. Source: [facility] POWERCHART Document Id: [id number] SIGMA BLACK TRAINER Miscellaneous - Jessie Chapa LDannP.N. 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 Intake/History Entered On: 07/29/2011 14:21 SIX SIGMA BLACK TRAINER Performed On: 07/29/2011 14:17 SIX SIGMA BLACK TRAINER by JESSIE WEBB LPN Intake Chief Complaint [...] 75.40kg JESSIE WEBB LPN - 07/29/2011 14:17 SIX SIGMA BLACK TRAINER Subjective Pain Symptoms : No JESSIE WEBB LPN - 07/29/2011 14:17 SIX SIGMA BLACK TRAINER Dependent Habits Tobacco Use/Currently Using : No Smoking Status : Never smoker Alcohol Use : Yes JESSIE WEBB LPN - 07/29/2011 14:17 SIX SIGMA BLACK TRAINER Caffeine Use Grid Caffeine Use : Current Type : Coffee Frequency : Weekly JESSIE WEBB LPN - 07/29/2011 14:17 SIX SIGMA BLACK TRAINER Recreational Drug Use Grid Drug Use : None JESSIE WEBB LPN - 07/29/2011 14:17 SIX SIGMA BLACK TRAINER Allergy Allergies (Active) Glutens Estimated Onset Date: [...] LPN; Reviewed Date: 04/07/2011 14:44 CDT Source: [facility] POWERCHART Document Id: [id number] SIX SIGMA BLACK TRAINER!28 SIGMA BLACK TRAINER documented in this encounter Plan of Treatment Not on filedocumented as of this encounter Visit Diagnoses Not on filedocumented in this encounter
--- OUTSIDE RECORDS SUMMARY | 2022-05-23 11:34 | XMS_ITS | Encounter Summary ---
:1935 Author Organization [facility] Address [address] [place] [address] Care Team Providers Name Role Phone Unavailable Primary Care Provider Unavailable Encounter Details Date Type Department Care Team Description 12/31/2010 Hospital Encounter [facility] Gerardo Wilson M.D. [address] [place] [phone] (Wo rk) Social History Tobacco Use [...] Wilson M.D. - 12/31/2010 12:00 AM CDT [id number] IMPRESSION/REPORT/PLAN Acute sinusitis. Patient is given Z-Chang as directed on the pack and ztpg-llr-hlrelzy Sudafed. Steam inhalation and saltwater gargles are [...] KARY WILSON MD On: 01/02/2011 11:16 Source: [facility] Document Id: [id number] documented in this encounter Miscellaneous Notes Miscellaneous [...] CALDERON LPN - 12/31/2010 15:01 CDT Source: [facility] [employer] Document Id: [id number] CDT!26 Miscellaneous - Patti [place] L.P.N. 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 - 02/01/2009 2:40 PM CDT Quality Measures Quality Measures Entered On: 12/31/2010 14:41 CDT Performed On: 02/01/2009 14:40 CDT by PATTI CALDERON LPN Labs Outside Lab LDL: 106mg/dL PATTI CALDERON LPN - 12/31/2010 14:40 CDT Source: [employer] Document Id: [id number] CDT!3 documented in this encounter Plan of Treatment Not on filedocumented as of this encounter Visit Diagnoses Not on filedocumented in this encounter
--- OUTSIDE RECORDS SUMMARY | 2022-05-23 11:34 | XMS_ITS | Encounter Summary ---
:1935 Author Organization [facility] Address [address] [place] [address] Care Team Providers Name Role Phone Unavailable Primary Care Provider Unavailable Encounter Details Date Type Department Care Team Description 08/21/2010 - Hospital Encounter [facility] Mary Veronica, 09/11/2010 INPT/OBSRV CYRIL, C.N.P., D.N.P. [address] [place] [phone] Social History Tobacco Use Types Packs/Day Years Used Date Smoking Tobacco: Never Assessed Sex Assigned at Date Recorded Not on file documented as of this encounter Plan of Treatment Not on filedocumented as of this encounter Visit Diagnoses Not on filedocumented in this encounter
--- OUTSIDE RECORDS SUMMARY | 2022-05-23 11:34 | XMS_ITS | Encounter Summary ---
:1935 Author Organization [facility] Address [address] [place] [address] Care Team Providers Name Role Phone Unavailable Primary Care Provider Unavailable Encounter Details Date Type Department Care Team Description 09/29/2011 - Hospital Encounter HX [facility] Albania Varma, 11/07/2011 SRV CYRIL, C.N.P., D.N.P. [address] [place] [phone] Social History Tobacco Use Types Packs/Day Years Used Date Smoking Tobacco: Never Assessed Sex Assigned at Date Recorded Not on file documented as of this encounter Discharge Summaries Bianca Villalobos, P.T. - 11/07/2011 12:00 AM CST [id number] DISCHARGE SUMMARY Patient was evaluated treated for [...] discharged into an independent home exercise program. Nba JosephP.TDann /tommy Electronically Signed By: BIANCA VILLALOBOS On: 11/10/2011 08:36 AM Source: [facility] MHSDOLBEYNONRADSYS Document Id: [id number] N NURSE documented in this encounter Medications at Time [...] Villalobos P.T. - 09/29/2011 12:00 AM CST [id number] HISTORY OF PRESENT ILLNESS The patient returns [...] to two treatment sessions. PATIENT PLAN OF FPC exercise program, desensitization, and strengthening. The plan [...] 10:58 AM Co-Signed By: ALBANIA VARMA RN, HOLISTIC NUTRITIONIST On: 10/02/2011 08:34 PM Source[facility] Document Id: [id number] N NURSE documented in this encounter Plan of Treatment Not on filedocumented as of this encounter Visit Diagnoses Not on filedocumented in this encounter
--- OUTSIDE RECORDS SUMMARY | 2022-05-23 11:34 | XMS_ITS | Encounter Summary ---
:1935 Author Organization [facility] Address [address] [place] [address] Care Team Providers Name Role Phone Unavailable Primary Care Provider Unavailable Encounter Details Date Type Department Care Team Description 01/21/2012 Hospital Encounter HX [facility] Mary Varma, CYRIL, C.N.P., D. N.P. [address] [place] [phone] (Wo rk) Social History Tobacco [...] APRN, C.NDannP. - 01/21/2012 12:00 AM CDT [id number] CHIEF COMPLAINT/REASON FOR VISIT 1. Left hip [...] She would like to go down to [place]. I will go ahead and help her [...] /joby Electronically Signed By: MARY VARMA RN, BLOCK PILER On: 01/23/2012 02:05 PM Source: [facility] MHSDOLBEYNONRADSYS Document Id: [id number] documented in this encounter Nursing Notes Conversion, Historical Provider Ser - 01/23/2012 8:41 AM CDT Referral Referral to [facility] - Ortho Dept. Appt scheduled for 02-13-12 @ [facility], [address], with Dr. Edwin Rasmussen. [facility] will be sending a letter with appt info to pt. Pt informed of date, time & place of appt. Electronically Signed By: KATHRYN TOVAR LPN On: 01/23/2012 08:53 AM Source: [employer] Document Id: [id number] documented in this encounter Miscellaneous Notes Miscellaneous - Mary Varma APRN, C.NOlivia - 01/21/2012 3:22 PM CDT Ambulatory Patient Summary [address] [address] Visit Information Name: KATHRYN LEON Current Date: 01/21/2012 15:22:57 Physicians Attending Provider: MARY VARMA RN, BLOCK PILER Primary Care Provider: MARY VARMA RN, BLOCK PILER Your Medications Here is a list of [...] cap(s) at bedtime Oral as directed ID [id number] fluticasone nasal (Flonase 0.05 mg/inh nasal spray) [...] Date Time Location Reason Provider 01/28/2012 09:15 [facility] PT/OT hip/sciatica Faviola Guerrero Your Goals/Additional instructions: Source: [facility] POWERCHART Document Id: [id number] Miscellaneous - Mary Varma APRN, C.N.P. - 01/21/2012 3:22 PM CDT Ambulatory Depart Summary [facility] [address] [facility] [place] [address] Visit Information Name: KATHRYN LEON Visit Date: 01/21/2012 15:22:57 Attending Provider: MARY VARMA RN, BLOCK PILER Primary Care Provider: MARY VARMA RN, BLOCK PILER KATHRYN LEON has been given the following [...] cap(s) at bedtime Oral as directed ID [id number] fluticasone nasal (Flonase 0.05 mg/inh nasal spray) [...] your provider for clarification. Additional Information: Source: [facility] POWERCHART Document Id: [id number] Miscellaneous - Yeimy Forbes L.P.N. - 01/21/2012 9:32 AM CDT Adult Clean Up Helper Banquet Intake/History Adult Clean Up Helper Banquet Intake/History Entered On: 01/21/2012 9:36 CDT Performed [...] Intensity : 7 5 YEIMY FORBES Lee BUSINESS DEVELOPMENT REPRESENTATIVE - 01/21/2012 9:32 CDT SUHA YEIMY Lee BUSINESS DEVELOPMENT REPRESENTATIVE - 01/21/2012 9:32 CDT Dependent Habits Tobacco Use/Currently Using : No Exposure to Tobacco Smoke : Care provider denies smoking in home Smoking Status : Never smoker Alcohol Use : Yes YEIMY FORBES Lee [facility] - 01/21/2012 9:32 CDT Caffeine Use Grid Caffeine Use : Current Type : Coffee Frequency : Weekly FORBES YEIMY Howard BUSINESS DEVELOPMENT REPRESENTATIVE - 01/21/2012 9:32 CDT Recreational Drug Use Grid Drug Use : None TONI FORBESYOJANA Howard [facility] - 01/21/2012 9:32 CDT Allergy Allergies [...] LPN; Reviewed Date: 01/21/2012 9:26 CDT Source: [facility] AXS-OneCHART Document Id: [id number] documented in this encounter Plan of [...] (Basic Metabolic Panel) (01/21/2012 10:07 AM CDT) [facility] gist Method Time Signature Sodium, S 130.9 [...] POWERCHART MMOLL HXeGFR (MDRD) 51 <=61 POWERCHART [id number] Comment: A GFR of <60 mL/min is [...]
--- OUTSIDE RECORDS SUMMARY | 2022-05-23 11:35 | XMS_ITS | Encounter Summary ---
:1935 Author Organization [facility] Address [address] [place] [address] Care Team Providers Name Role Phone Unavailable Primary Care Provider Unavailable Encounter Details Date Type Department Care Team Description 04/16/2010 Hospital Encounter [facility] INPT/OBSRV Harriet Cortez, CYRIL, C.N.P., D.N.P. [address] [place] [phone] (Wo rk) Social History Tobacco Use Types Packs/Day Years Used Date Smoking Tobacco: Never Assessed Sex Assigned at Date Recorded Not on file documented as of this encounter Plan of Treatment Not on filedocumented as of this encounter Visit Diagnoses Not on filedocumented in this encounter
--- OUTSIDE RECORDS SUMMARY | 2022-05-23 11:35 | XMS_ITS | Encounter Summary ---
:1935 Author Organization [facility] Address [address] [place] [address] Care Team Providers Name Role Phone Unavailable Primary Care Provider Unavailable Encounter Details Date Type Department Care Team Description 04/16/2010 - Hospital Encounter [facility]X [facility] Mary Veronica, 05/13/2010 INPT/OBSRV CYRIL, C.N.P., D.N.P. [address] [place] [phone] Social History Tobacco Use Types Packs/Day Years Used Date Smoking Tobacco: Never Assessed Sex Assigned at Date Recorded Not on file documented as of this encounter Plan of Treatment Not on filedocumented as of this encounter Visit Diagnoses Not on filedocumented in this encounter
--- OUTSIDE RECORDS SUMMARY | 2022-05-23 11:35 | XMS_ITS | Encounter Summary ---
:1935 Author Organization [facility] Address [address] [place] [address] Care Team Providers Name Role Phone Unavailable Primary Care Provider Unavailable Encounter Details Date Type Department Care Team Description 06/19/2010 - Hospital Encounter H[facility] Mary Cortez, 07/09/2010 INPT/OBSRV CYRIL, C.N.P., D.N.P. [address] [place] [phone] Social History Tobacco Use Types Packs/Day Years Used Date Smoking Tobacco: Never Assessed Sex Assigned at Date Recorded Not on file documented as of this encounter Plan of Treatment Not on filedocumented as of this encounter Visit Diagnoses Not on filedocumented in this encounter
--- OUTSIDE RECORDS SUMMARY | 2022-05-23 11:35 | XMS_ITS | Encounter Summary ---
:1935 Author Organization [facility] Address [address] [place] [address] Care Team Providers Name Role Phone Unavailable Primary Care Provider Unavailable Encounter Details Date Type Department Care Team Description 06/27/2010 Hospital Encounter [facility] Provider, Historical INPT/OBSRV Social History Tobacco Use Types Packs/Day Years Used Date Smoking Tobacco: Never Assessed Sex Assigned at Date Recorded Not on file documented as of this encounter Plan of Treatment Not on filedocumented as of this encounter Visit Diagnoses Not on filedocumented in this encounter
--- OUTSIDE RECORDS SUMMARY | 2022-05-23 11:35 | XMS_ITS | Encounter Summary ---
:1935 Author Organization [facility] Address [address] [place] [address] Care Team Providers Name Role Phone Unavailable Primary Care Provider Unavailable Encounter Details Date Type Department Care Team Description 12/29/2009 Hospital Encounter H[facility] Jordi Villarreal, INPT/OBSRV M.D. [address] [place] [phone] (Wo rk) Social History Tobacco Use Types Packs/Day Years Used Date Smoking Tobacco: Never Assessed Sex Assigned at Date Recorded Not on file documented as of this encounter Plan of Treatment Not on filedocumented as of this encounter Visit Diagnoses Not on filedocumented in this encounter
--- OUTSIDE RECORDS SUMMARY | 2022-05-23 11:35 | XMS_ITS | Encounter Summary ---
:1935 Author Organization [facility] Address [address] [place] [address] Care Team Providers Name Role Phone Unavailable Primary Care Provider Unavailable Encounter Details Date Type Department Care Team Description 01/23/2010 Hospital Encounter [facility] INPT/OBSRV Harriet Cortez, CYRIL, C.N.P., D.N.P. [address] [place] [phone] (Wo rk) Social History Tobacco Use Types Packs/Day Years Used Date Smoking Tobacco: Never Assessed Sex Assigned at Date Recorded Not on file documented as of this encounter Plan of Treatment Not on filedocumented as of this encounter Visit Diagnoses Not on filedocumented in this encounter
--- OUTSIDE RECORDS SUMMARY | 2022-05-23 11:35 | XMS_ITS | Encounter Summary ---
:1935 Author Organization [facility] Address [address] [place] [address] Care Team Providers Name Role Phone Unavailable Primary Care Provider Unavailable Encounter Details Date Type Department Care Team Description 01/14/2010 Hospital Encounter [facility] INPT/OBSRV Chu Kendrick M.D. [address] [place] [address] (Wo rk) Social History Tobacco Use Types Packs/Day Years Used Date Smoking Tobacco: Never Assessed Sex Assigned at Date Recorded Not on file documented as of this encounter Plan of Treatment Not on filedocumented as of this encounter Visit Diagnoses Not on filedocumented in this encounter
--- OUTSIDE RECORDS SUMMARY | 2022-05-23 11:35 | XMS_ITS | Encounter Summary ---
:1935 Author Organization [facility] Address [address] [place] [address] Care Team Providers Name Role Phone Unavailable Primary Care Provider Unavailable Encounter Details Date Type Department Care Team Description 03/07/2010 Hospital Encounter HX [facility] INPT/OBSRV Harriet Cortez, CYRIL, C.N.P., D.N.P. [address] [place] [phone] (Wo rk) Social History Tobacco Use Types Packs/Day Years Used Date Smoking Tobacco: Never Assessed Sex Assigned at Date Recorded Not on file documented as of this encounter Plan of Treatment Not on filedocumented as of this encounter Visit Diagnoses Not on filedocumented in this encounter
--- OUTSIDE RECORDS SUMMARY | 2022-05-23 11:35 | XMS_ITS | Encounter Summary ---
:1935 Author Organization [facility] Address [address] [place] [address] Care Team Providers Name Role Phone Unavailable Primary Care Provider Unavailable Encounter Details Date Type Department Care Team Description 08/06/2010 Hospital Encounter [facility] INPT/OBSRV Harriet Cortez, CYRIL, C.N.P., D.N.P. [address] [place] [phone] (Wo rk) Social History Tobacco Use Types Packs/Day Years Used Date Smoking Tobacco: Never Assessed Sex Assigned at Date Recorded Not on file documented as of this encounter Plan of Treatment Not on filedocumented as of this encounter Visit Diagnoses Not on filedocumented in this encounter
--- OUTSIDE RECORDS SUMMARY | 2022-05-23 11:35 | XMS_ITS | Encounter Summary ---
:1935 Author Organization [facility] Address [address] [place] [address] Care Team Providers Name Role Phone Unavailable Primary Care Provider Unavailable Encounter Details Date Type Department Care Team Description 05/22/2010 Hospital Encounter [facility] INPT[facility]OBSRV Harriet Cortez, CYRIL, C.N.P., D.N.P. [address] [place] [phone] (Wo rk) Social History Tobacco Use Types Packs/Day Years Used Date Smoking Tobacco: Never Assessed Sex Assigned at Date Recorded Not on file documented as of this encounter Plan of Treatment Not on filedocumented as of this encounter Visit Diagnoses Not on filedocumented in this encounter
--- OUTSIDE RECORDS SUMMARY | 2022-05-23 11:35 | XMS_ITS | Encounter Summary ---
:1935 Author Organization [facility] Address [address] [place] [address] Care Team Providers Name Role Phone Unavailable Primary Care Provider Unavailable Encounter Details Date Type Department Care Team Description 03/07/2010 Hospital Encounter [facility] INPT/OBSRV Harriet Cortez, CYRIL, C.N.P., D.N.P. [address] [place] [phone] (Wo rk) Social History Tobacco Use Types Packs/Day Years Used Date Smoking Tobacco: Never Assessed Sex Assigned at Date Recorded Not on file documented as of this encounter Plan of Treatment Not on filedocumented as of this encounter Visit Diagnoses Not on filedocumented in this encounter
--- OUTSIDE RECORDS SUMMARY | 2022-05-23 11:35 | XMS_ITS | Encounter Summary ---
:1935 Author Organization [facility] Address [address] [place] [address] Care Team Providers Name Role Phone Unavailable Primary Care Provider Unavailable Encounter Details Date Type Department Care Team Description 03/04/2010 Hospital Encounter [facility] Provider, [facility] Social History Tobacco Use Types Packs/Day Years Used Date Smoking Tobacco: Never Assessed Sex Assigned at Date Recorded Not on file documented as of this encounter Miscellaneous Notes Miscellaneous - Conversion, Historical Provider Ser - 03/04/2010 12:00 AM CDT [id number] Kathryn Leon [address] [facility] [phone] [place] March 07, 2010 Dear Kathryn Mayenz: Our records indicate that you are due for a Colonoscopy. This is the best test available to detect colon cancer. Please call us to make an appointment at your convenience. Our telephone number for scheduling an appointment is [phone]. If you have already made an appointment for this or have had the proceduredone, please disregard this notice. We look forward to seeing you soon. Sincerely, Edgar Harry M.D. Internal Medicine Department [facility] Source: [facility] Document Id: [id number] Telephone Encounter - Conversion, Historical Provider Ser - 03/04/2010 12:00 AM CDT [id number] Could you please review this patient's information? Does not look like she is seen here but do you want to order test and we will contact pt? Source: [facility] Document Id: [id number] Telephone Encounter - Mark Green M.D. - 03/04/2010 12:00 AM CDT [id number] Yep, contact her. Colonoscopy ordered, though not the prep. (I would presume Miralax prep at [facility], but would wait until she contacts us.) [facility]: [facility] Document Id: [id number] Telephone Encounter - Conversion, Historical Provider Ser - 03/04/2010 12:00 AM CDT [id number] Please attempt to contact her and reminder her she is due for a colonoscopy, also ask her where she would like her prep called into. Source: [facility] Document Id: [id number] Telephone Encounter - Conversion, Historical Provider Ser - 03/04/2010 12:00 AM CDT [id number] Pt called. Unidentifiable voice mail. Please send a reminder letter regarding colonoscopy. Source: [email or web address] Document Id: [id number] Telephone Encounter - Conversion, Historical Provider Ser - 03/04/2010 12:00 AM CDT [id number] Letter sent Source[facility] Document Id: [id number] documented in this encounter Plan of Treatment Not on filedocumented as of this encounter Visit Diagnoses Not on filedocumented in this encounter
--- OUTSIDE RECORDS SUMMARY | 2022-05-23 11:35 | XMS_ITS | Encounter Summary ---
:1935 Author Organization [facility] Address [address] [place] [address] Care Team Providers Name Role Phone Unavailable Primary Care Provider Unavailable Encounter Details Date Type Department Care Team Description 06/26/2010 Hospital Encounter [facility] INPT/OBSRV Harriet Cortez, CYRIL, C.N.P., D.N.P. [address] [place] [phone] (Wo rk) Social History Tobacco Use Types Packs/Day Years Used Date Smoking Tobacco: Never Assessed Sex Assigned at Date Recorded Not on file documented as of this encounter Plan of Treatment Not on filedocumented as of this encounter Visit Diagnoses Not on filedocumented in this encounter
--- OUTSIDE RECORDS SUMMARY | 2022-05-23 11:35 | XMS_ITS | Encounter Summary ---
:1935 Author Organization [facility] Address [address] [place] [address] Care Team Providers Name Role Phone Unavailable Primary Care Provider Unavailable Encounter Details Date Type Department Care Team Description 02/19/2010 - Hospital Encounter [facility]X [facility] Luke Pacheco, 02/22/2010 INPT/OBSRV M.DDann [address] [facility] [address] [place], [address] [address] Social History Tobacco Use Types Packs/Day Years Used Date Smoking Tobacco: Never Assessed Sex Assigned at Date Recorded Not on file documented as of this encounter Plan of Treatment Not on filedocumented as of this encounter Visit Diagnoses Not on filedocumented in this encounter
--- OUTSIDE RECORDS SUMMARY | 2022-05-23 11:35 | XMS_ITS | Encounter Summary ---
:1935 Author Organization [facility] Address [address] [place] [address] Care Team Providers Name Role Phone Unavailable Primary Care Provider Unavailable Encounter Details Date Type Department Care Team Description 01/04/2010 Hospital Encounter [facility] Jordi Villarreal, INPT/OBSRV M.D. [address] [place] [phone] (Wo rk) Social History Tobacco Use Types Packs/Day Years Used Date Smoking Tobacco: Never Assessed Sex Assigned at Date Recorded Not on file documented as of this encounter Plan of Treatment Not on filedocumented as of this encounter Visit Diagnoses Not on filedocumented in this encounter
--- OUTSIDE RECORDS SUMMARY | 2022-05-23 11:35 | XMS_ITS | Encounter Summary ---
:1935 Author Organization [facility] Address [address] [place] [address] Care Team Providers Name Role Phone Unavailable [...]
--- OUTSIDE RECORDS SUMMARY | 2022-05-23 11:35 | XMS_ITS | Encounter Summary ---
:1935 Author Organization [facility] Address [address] [place] [address] Care Team Providers Name Role Phone Unavailable Primary Care Provider Unavailable Encounter Details Date Type Department Care Team Description 02/25/2010 Hospital Encounter [facility] INPT/OBSRV Harriet Cortez, CYRIL, C.N.P., D.N.P. [address] [place] [phone] (Wo rk) Social History Tobacco Use Types Packs/Day Years Used Date Smoking Tobacco: Never Assessed Sex Assigned at Date Recorded Not on file documented as of this encounter Plan of Treatment Not on filedocumented as of this encounter Visit Diagnoses Not on filedocumented in this encounter
--- OUTSIDE RECORDS SUMMARY | 2022-05-23 11:35 | XMS_ITS | Encounter Summary ---
:1935 Author Organization [facility] Address [address] [place] [address] Care Team Providers Name Role Phone Unavailable Primary Care Provider Unavailable Encounter Details Date Type Department Care Team Description 01/03/2010 Hospital En[facility] Jordi Villarreal, INPT/OBSRV M.D. [address] [place] [phone] (Wo rk) Social History Tobacco Use Types Packs/Day Years Used Date Smoking Tobacco: Never Assessed Sex Assigned at Date Recorded Not on file documented as of this encounter Plan of Treatment Not on filedocumented as of this encounter Visit Diagnoses Not on filedocumented in this encounter
--- OUTSIDE RECORDS SUMMARY | 2022-05-23 11:35 | XMS_ITS | Encounter Summary ---
:1935 Author Organization [facility] Address [address] [place] [address] Care Team Providers Name Role Phone Unavailable Primary Care Provider Unavailable Encounter Details Date Type Department Care Team Description 01/29/2010 Hospital Encounter HX NO [facility] Jose Reynolds M.D. [address] [place] [phone] (Wo rk) Social History Tobacco Use Types Packs/Day Years Used Date Smoking Tobacco: Never Assessed Sex Assigned at Date Recorded Not on file documented as of this encounter Plan of Treatment Not on filedocumented as of this encounter Visit Diagnoses Not on filedocumented in this encounter
--- OUTSIDE RECORDS SUMMARY | 2022-05-23 11:35 | XMS_ITS | Encounter Summary ---
:1935 Author Organization [facility] Address [address] [place] [address] Care Team Providers Name Role Phone Unavailable Primary Care Provider Unavailable Encounter Details Date Type Department Care Team Description 05/16/2010 - Hospital Encounter [facility] Mary Veronica, 06/11/2010 INPT/OBSRV CYRIL, C.N.P., D.N.P. [address] [place] [phone] Social History Tobacco Use Types Packs/Day Years Used Date Smoking Tobacco: Never Assessed Sex Assigned at Date Recorded Not on file documented as of this encounter Plan of Treatment Not on filedocumented as of this encounter Visit Diagnoses Not on filedocumented in this encounter
--- OUTSIDE RECORDS SUMMARY | 2022-05-23 11:35 | XMS_ITS | Encounter Summary ---
:1935 Author Organization [facility] Address [address] [place] [address] Care Team Providers Name Role Phone Unavailable Primary Care Provider Unavailable Encounter Details Date Type Department Care Team Description 04/18/[address] [facility] INPT/OBSRV Harriet Cortez, CYRIL, C.N.P., D.N.P. [address] [place] [phone] (Wo rk) Social History Tobacco Use Types Packs/Day Years Used Date Smoking Tobacco: Never Assessed Sex Assigned at Date Recorded Not on file documented as of this encounter Plan of Treatment Not on filedocumented as of this encounter Visit Diagnoses Not on filedocumented in this encounter
--- OUTSIDE RECORDS SUMMARY | 2022-05-23 11:35 | XMS_ITS | Encounter Summary ---
:1935 Author Organization [facility] Address [address] [place] [address] Care Team Providers Name Role Phone Unavailable Primary Care Provider Unavailable Encounter Details Date Type Department Care Team Description 12/30/2009 Hospital Encounter HX [facility] Jordi Villarreal, INPT/OBSRV M.D. [address] [place] [phone] (Wo rk) Social History Tobacco Use Types Packs/Day Years Used Date Smoking Tobacco: Never Assessed Sex Assigned at Date Recorded Not on file documented as of this encounter Plan of Treatment Not on filedocumented as of this encounter Visit Diagnoses Not on filedocumented in this encounter
--- OUTSIDE RECORDS SUMMARY | 2022-05-23 11:35 | XMS_ITS | Encounter Summary ---
:1935 Author Organization [facility] Address [address] [place] [address] Care Team Providers Name Role Phone Unavailable Primary Care Provider Unavailable Encounter Details Date Type Department Care Team Description 02/12/2010 Hospital Encounter HX [facility] Jose Reynolds M.D. [address] [place] [phone] (Wo rk) Social History Tobacco Use Types Packs/Day Years Used Date Smoking Tobacco: Never Assessed Sex Assigned at Date Recorded Not on file documented as of this encounter Plan of Treatment Not on filedocumented as of this encounter Visit Diagnoses Not on filedocumented in this encounter
--- OUTSIDE RECORDS SUMMARY | 2022-05-23 11:35 | XMS_ITS | Encounter Summary ---
:1935 Author Organization [facility] Address [address] [place] [address] Care Team Providers Name Role Phone Unavailable Primary Care Provider Unavailable Encounter Details Date Type Department Care Team Description 01/29/2010 Hospital Encounter HX [facility] INPT/OBSRV Diamond Reynolds M.D. [address] [place] [phone] (Wo rk) Social History Tobacco Use Types Packs/Day Years Used Date Smoking Tobacco: Never Assessed Sex Assigned at Date Recorded Not on file documented as of this encounter Plan of Treatment Not on filedocumented as of this encounter Visit Diagnoses Not on filedocumented in this encounter
--- OUTSIDE RECORDS SUMMARY | 2022-05-23 11:35 | XMS_ITS | Encounter Summary ---
:1935 Author Organization [facility] Address [address] [place] [address] Care Team Providers Name Role Phone Unavailable Primary Care Provider Unavailable Encounter Details Date Type Department Care Team Description 02/19/2010 - Hospital [facility] Mary Veronica, 02/22/2010 INPT/OBSRV CYRIL, C.N.P., D.N.P. [address] [place] [phone] Social History Tobacco Use Types Packs/Day Years Used Date Smoking Tobacco: Never Assessed Sex Assigned at Date Recorded Not on file documented as of this encounter Plan of Treatment Not on filedocumented as of this encounter Visit Diagnoses Not on filedocumented in this encounter
--- OUTSIDE RECORDS SUMMARY | 2022-05-23 11:35 | XMS_ITS | Encounter Summary ---
:1935 Author Organization [facility] Address [address] [place] [address] Care Team Providers Name Role Phone Unavailable Primary Care Provider Unavailable Encounter Details Date Type Department Care Team Description 01/28/2010 - Hospital Encounter HX [facility] Mary Veronica, 02/08/2010 INPT/OBSRV CYRIL, C.N.P., D.N.P. [address] [place] [phone] Social History Tobacco Use Types Packs/Day Years Used Date Smoking Tobacco: Never Assessed Sex Assigned at Date Recorded Not on file documented as of this encounter Plan of Treatment Not on filedocumented as of this encounter Visit Diagnoses Not on filedocumented in this encounter
--- OUTSIDE RECORDS SUMMARY | 2022-05-23 11:35 | XMS_ITS | Encounter Summary ---
:1935 Author Organization [facility] Address [address] [place] [address] Care Team Providers Name Role Phone Unavailable Primary Care Provider Unavailable Encounter Details Date Type Department Care Team Description 02/12/2010 Hospital Encounter HX [facility] INPT/OBSRV Diamond Reynolds M.D. [address] [place] [phone] (Wo rk) Social History Tobacco Use Types Packs/Day Years Used Date Smoking Tobacco: Never Assessed Sex Assigned at Date Recorded Not on file documented as of this encounter Plan of Treatment Not on filedocumented as of this encounter Visit Diagnoses Not on filedocumented in this encounter
--- OUTSIDE RECORDS SUMMARY | 2022-05-23 11:35 | XMS_ITS | Encounter Summary ---
:1935 Author Organization [facility] Address [address] [place] [address] Care Team Providers Name Role Phone Unavailable Primary Care Provider Unavailable Encounter Details Date Type Department Care Team Description 12/30/[address] [facility] Jordi Villarreal, INPT/OBSRV M.D. [address] [place] [phone] (Wo rk) Social History Tobacco Use Types Packs/Day Years Used Date Smoking Tobacco: Never Assessed Sex Assigned at Date Recorded Not on file documented as of this encounter Plan of Treatment Not on filedocumented as of this encounter Visit Diagnoses Not on filedocumented in this encounter
--- OUTSIDE RECORDS SUMMARY | 2022-05-23 11:35 | XMS_ITS | Encounter Summary ---
:1935 Author Organization [facility] Address [address] [place] [address] Care Team Providers Name Role Phone Unavailable [...] used. Electronically signed by: Pawel Uriarte MD. [id number] 16-Feb-2010 07:52 Erick LLANES FLUOROSCOPY PROCEDURES documented in this encounter Visit Diagnoses Not on filedocumented in this encounter
--- OUTSIDE RECORDS SUMMARY | 2022-05-23 11:36 | XMS_ITS | Encounter Summary ---
:1935 Author Organization [facility] Address [address] [place] [address] Care Team Providers Name Role Phone Unavailable Primary Care Provider Unavailable Encounter Details Date Type Department Care Team Description 01/27/2008 Hospital Encounter [facility] INPT/OBSRV Leilani Marques M.D. [address] [place], [place] [address] (Wo rk) Social History Tobacco Use Types Packs/Day Years Used Date Smoking Tobacco: Never Assessed Sex Assigned at Date Recorded Not on file documented as of this encounter Plan of Treatment Not on filedocumented as of this encounter Visit Diagnoses Not on filedocumented in this encounter
--- OUTSIDE RECORDS SUMMARY | 2022-05-23 11:36 | XMS_ITS | Encounter Summary ---
:1935 Author Organization [facility] Address [address] [place] [address] Care Team Providers Name Role Phone Unavailable Primary Care Provider Unavailable Encounter Details Date Type Department Care Team Description 01/21/2001 Hospital Encounter HX [facility] Abelino Barbosa M.D. [address] [place] [address] (Wo rk) Social History Tobacco Use Types Packs/Day Years Used Date Smoking Tobacco: Never Assessed Sex Assigned at Date Recorded Not on file documented as of this encounter Progress Notes Conversion, Historical Provider Ser - 01/21/2001 2:20 PM CDT [id number] Number five cube did not stay in. Fitted several styles and sizes with finally a #2 1/2 gellhorn t hat fit fairly well.If returns, try a six cube. This is temporary, and patient plans surgery when i t fits in her schedule. Source[facility] Document Id: [id number] documented in this encounter Plan of Treatment Not on filedocumented as of this encounter Visit Diagnoses Not on filedocumented in this encounter
--- OUTSIDE RECORDS SUMMARY | 2022-05-23 11:36 | XMS_ITS | Encounter Summary ---
:1935 Author Organization [facility] Address [address] [place] [address] Care Team Providers Name Role Phone Unavailable Primary Care Provider Unavailable Encounter Details Date Type Department Care Team Description 01/05/2007 Hospital Encounter HX [facility] Asher Campbell M.D. 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 I recommend you have a repeat colonoscopy in 3 years. If you have any questions/concerns regarding this, please call [facility] at [phone]. Thank you for letting us serve you. Sincerely, Wm. Wayne Green M.D./fernando Source: [facility] Document Id: [id number] documented in this encounter Plan of Treatment Not on filedocumented as of this encounter Visit Diagnoses Not on filedocumented in this encounter
--- OUTSIDE RECORDS SUMMARY | 2022-05-23 11:36 | XMS_ITS | Encounter Summary ---
:1935 Author Organization [facility] Address [address] [place] [address] Care Team Providers Name Role Phone Unavailable [...] Provider Ser - 03/22/2001 12:00 AM CDT [id number] *-*-*-*-* SEE SCANNED REPORT *-*-*-*-* Source: [facility] RWHXTRANSXSYS Document Id: [id number] documented in this encounter Plan of Treatment Not on filedocumented as of this encounter Visit Diagnoses Not on filedocumented in this encounter
--- OUTSIDE RECORDS SUMMARY | 2022-05-23 11:36 | XMS_ITS | Encounter Summary ---
:1935 Author Organization [facility] Address [address] [place] [address] Care Team Providers Name Role Phone Unavailable Primary Care Provider Unavailable Encounter Details Date Type Department Care Team Description 04/06/2001 Hospital Encounter HX [facility] Abelino Barbosa M.D. [address] [place] [address] (Wo rk) Social History Tobacco Use Types Packs/Day Years Used Date Smoking Tobacco: Never Assessed Sex Assigned at Date Recorded Not on file documented as of this encounter Progress Notes Conversion, Historical Provider Emmanuel - 04/06/2001 2:40 PM CDT [id number] Kathryn Leon is a 66 year old now two weeks post-operative from AP repair. Is doing well with no co mplaint. Good bowel and bladder fuction. Good pain control.EXAM: PELVIC: incisions healing well-no induration or erythemaASSESSMENT: Good post-op recovery.PLAN: To return at six weeks postoperati ve for next check. Start vaginal estrogen again. 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 Source: [facility] Document Id: [id number] documented in this encounter Plan of Treatment Not on filedocumented as of this encounter Visit Diagnoses Not on filedocumented in this encounter
--- OUTSIDE RECORDS SUMMARY | 2022-05-23 11:36 | XMS_ITS | Encounter Summary ---
:1935 Author Organization [facility] Address [address] [place] [address] Care Team Providers Name Role Phone Unavailable Primary Care Provider Unavailable Encounter Details Date Type Department Care Team Description 10/19/2001 Hospital Encounter HX NO MAP[facility] Sunny Vernon M.D. [address] [place], [place] [address] Social History Tobacco Use Types Packs/Day Years Used Date Smoking Tobacco: Never Assessed Sex Assigned at Date Recorded Not on file documented as of this encounter Miscellaneous Notes Miscellaneous - Conversion, Historical Provider Ser - 10/19/2001 12:00 AM DEEP FAT COOK FRY [id number] Records copied for pt to hand carry Dr. Stephanie Olivier for the following dates mammo and rf of 7 5-00, bone mineral densitometry film and rf of 5-4-00.aj. Source: [facility] RWHXTRANSXSYS Document Id: [id number] documented in this encounter Plan of Treatment Not on filedocumented as of this encounter Visit Diagnoses Not on filedocumented in this encounter
--- OUTSIDE RECORDS SUMMARY | 2022-05-23 11:36 | XMS_ITS | Encounter Summary ---
:1935 Author Organization [facility] Address [address] [place] [address] Care Team Providers Name Role Phone Unavailable [...]
--- OUTSIDE RECORDS SUMMARY | 2022-05-23 11:36 | XMS_ITS | Encounter Summary ---
:1935 Author Organization [facility] Address [address] [place] [address] Care Team Providers Name Role Phone Unavailable Primary Care Provider Unavailable Encounter Details Date Type Department Care Team Description 12/31/2006 Hospital Encounter [facility]X [facility] Arnie Green am, M.D. [address] [place] [phone] (Wo rk) Social History Tobacco Use Types Packs/Day Years Used Date Smoking Tobacco: Never Assessed Sex Assigned at Date Recorded Not on file documented as of this encounter Plan of Treatment Not on filedocumented as of this encounter Visit Diagnoses Not on filedocumented in this encounter
--- OUTSIDE RECORDS SUMMARY | 2022-05-23 11:36 | XMS_ITS | Encounter Summary ---
:1935 Author Organization [facility] Address [address] [place] [address] Care Team Providers Name Role Phone Unavailable Primary Care Provider Unavailable Encounter Details Date Type Department Care Team Description 02/01/2009 Hospital Encounter [facility] INPT/OBSRV Leilani Marques M.D. [address] [place], [place] [address] (Wo rk) Social History Tobacco Use Types Packs/Day Years Used Date Smoking Tobacco: Never Assessed Sex Assigned at Date Recorded Not on file documented as of this encounter Plan of Treatment Not on filedocumented as of this encounter Visit Diagnoses Not on filedocumented in this encounter
--- OUTSIDE RECORDS SUMMARY | 2022-05-23 11:36 | XMS_ITS | Encounter Summary ---
:1935 Author Organization [facility] Address [address] [place] [address] Care Team Providers Name Role Phone Unavailable [...]
--- OUTSIDE RECORDS SUMMARY | 2022-05-23 11:36 | XMS_ITS | Encounter Summary ---
:1935 Author Organization [facility] Address [address] [place] [address] Care Team Providers Name Role Phone Unavailable Primary Care Provider Unavailable Encounter Details Date Type Department Care Team Description 12/31/2006 Hospital Encounter [facility]X [facility] Arnie Green am, M.D. [address] [place] [phone] (Wo rk) Social History Tobacco Use Types Packs/Day Years Used Date Smoking Tobacco: Never Assessed Sex Assigned at Date Recorded Not on file documented as of this encounter Plan of Treatment Not on filedocumented as of this encounter Visit Diagnoses Not on filedocumented in this encounter
--- OUTSIDE RECORDS SUMMARY | 2022-05-23 11:36 | XMS_ITS | Encounter Summary ---
:1935 Author Organization [facility] Address [address] [place] [address] Care Team Providers Name Role Phone Unavailable Primary Care Provider Unavailable Encounter Details Date Type Department Care Team Description 05/11/2001 Hospital Encounter HX [facility] Abelino Barbosa M.D. [address] [place] [address] (Wo rk) Social History Tobacco Use Types Packs/Day Years Used Date Smoking Tobacco: Never Assessed Sex Assigned at Date Recorded Not on file documented as of this encounter Progress Notes Conversion, Historical Provider Ser - 05/11/2001 9:30 AM CDT [id number] Kathryn Leon is a 66 year old [...] PRN. Continue Mycolog II as needed. Source[facility] Document Id: [id number] documented in this encounter Plan of Treatment Not on filedocumented as of this encounter Visit Diagnoses Not on filedocumented in this encounter
--- OUTSIDE RECORDS SUMMARY | 2022-05-23 11:36 | XMS_ITS | Encounter Summary ---
:1935 Author Organization [facility] Address [address] [place] [address] Care Team Providers Name Role Phone Unavailable Primary Care Provider Unavailable Encounter Details Date Type Department Care Team Description 01/22/2001 Hospital Encounter HX [facility] Abelino Barbosa M.D. [address] [place], [place] [phone] (Wo rk) Social History Tobacco Use Types Packs/Day Years Used Date Smoking Tobacco: Never Assessed Sex Assigned at Date Recorded Not on file documented as of this encounter Progress Notes Conversion, Historical Provider Ser - 01/22/2001 12:00 AM CDT [id number] Kathryn [address] [place], [place] [address]Nes [address]MRN [id number] ear Ms. Leon:I am writing to inform you the results of the laboratory tests you had done during your recent visit to the clinic. The results of your recent tests were: urinalysis was NORMAL It was a pleasure to see you in the clinic. If you have any further questions or problems, please conta ct our office at [phone].Sincerely,Pamela Leon M.D.BREWERY WORKER Department Source: [facility] Document Id: [id number] documented in this encounter Plan of Treatment Not on filedocumented as of this encounter Visit Diagnoses Not on filedocumented in this encounter
--- OUTSIDE RECORDS SUMMARY | 2022-05-23 11:36 | XMS_ITS | Encounter Summary ---
:1935 Author Organization [facility] Address [address] [place] [address] Care Team Providers Name Role Phone Unavailable [...]
--- OUTSIDE RECORDS SUMMARY | 2022-05-23 11:36 | XMS_ITS | Encounter Summary ---
:1935 Author Organization [facility] Address [address] [place] [address] Care Team Providers Name Role Phone Unavailable [...]
--- OUTSIDE RECORDS SUMMARY | 2022-05-23 11:36 | XMS_ITS | Encounter Summary ---
:1935 Author Organization [facility] Address [address] [place] [address] Care Team Providers Name Role Phone Unavailable Primary Care Provider Unavailable Encounter Details Date Type Department Care Team Description 06/21/2002 Hospital Encounter HX [facility] Abelino Barbosa M.D. [address] [place] [address] (Wo rk) Social History Tobacco Use Types Packs/Day Years Used Date Smoking Tobacco: Never Assessed Sex Assigned at Date Recorded Not on file documented as of this encounter Progress Notes Conversion, Historical Provider Ser - 06/21/2002 3:15 PM CDT [id number] Kathryn is here to discuss lab results from [place] and switch to Fosamax, DC of premarin. On labs there wa s an elevated liver test result but records not yet available. They obtained a DEXA which showed im provement from last year. Because of liver results was placed on Fosamax. Discussed reasoning and pat ient will follow up in [place] as instructed by primary care physician there, in one year. Time spe nt discussing problems with patient greater than 15 minutes. Quick Note by: LAZ SANTIAGO on 06/22/02 at 3:46 PM. letter out Source: [facility] Document Id: [id number] documented in this encounter Miscellaneous Notes Miscellaneous - Laz Santiago K - 06/21/2002 3:15 PM CDT [id number] Kathryn Santiago [address] [place] [id number] 06/22/2002 Dear Kathryn Santiago LAB RESULTS: The results of your recent TSH, (thyroid function) was normal.. If you have any further questions orproblems, please contact our office at [phone]. Sincerely, Laz Santiago M.D. [facility] Obstetrics and Gynecology Department Source: [facility] Document Id: [id number] Electronically signed by Conversion, [facility] General Maintenance Technician [id number] at 02/16/2017 7:46 PM CDT documented in this encounter Plan of Treatment Not on filedocumented as of this encounter Visit Diagnoses Not on filedocumented in this encounter
--- OUTSIDE RECORDS SUMMARY | 2022-05-23 11:36 | XMS_ITS | Encounter Summary ---
:1935 Author Organization [facility] Address [address] [place] [address] Care Team Providers Name Role Phone Unavailable [...] Historical Provider Ser - 12/12/2002 12:00 AM PARTS DEPARTMENT MANAGER [id number] Records sent to pt for the following dates all clinic/enc hx notes and xray rfs, and ekg rfs 11-12-97 to 12-12-02, pt hx sheets, med list, all labs 07-22-99 to 06-21-02, and clinic path rf of 01-10-00.kelvin hanna ( 19pgs) [place] Source: [facility] RWHXTRANSXSYS Document Id: [id number] documented in this encounter Plan of Treatment Not on filedocumented as of this encounter Visit Diagnoses Not on filedocumented in this encounter
--- OUTSIDE RECORDS SUMMARY | 2022-05-23 11:36 | XMS_ITS | Encounter Summary ---
:1935 Author Organization [facility] Address [address] [place] [address] Care Team Providers Name Role Phone Unavailable Primary Care Provider Unavailable Encounter Details Date Type Department Care Team Description 06/22/2001 Hospital Encounter HX [facility] Stephanie Millan L.P.N. [address] [place], [place] [phone] Social History Tobacco Use Types Packs/Day Years Used Date Smoking Tobacco: Never Assessed Sex Assigned at Date Recorded Not on file documented as of this encounter Miscellaneous Notes Telephone Encounter - Conversion, Historical Provider Ser - 06/22/2001 12:00 AM CDT [id number] >> LAZ LEON Tue Jun 22, 2001 7:41 PM ok >> STEPHANIE SANTAMARIA leandra Jun 22, 2001 3:56 PM >> CALL RECEIVED. Contact: [facility] Document Id: [id number] documented in this encounter Plan of Treatment Not on filedocumented as of this encounter Visit Diagnoses Not on filedocumented in this encounter
--- OUTSIDE RECORDS SUMMARY | 2022-05-23 11:36 | XMS_ITS | Encounter Summary ---
:1935 Author Organization [facility] Address [address] [place] [address] Care Team Providers Name Role Phone Unavailable Primary Care Provider Unavailable Encounter Details Date Type Department Care Team Description 09/30/2001 Hospital Encounter HX [facility] Stephanie Millan L.P.N. [address] [place], [place] [phone] Social History Tobacco Use Types Packs/Day Years Used Date Smoking Tobacco: Never Assessed Sex Assigned at Date Recorded Not on file documented as of this encounter Miscellaneous Notes Telephone Encounter - Conversion, Historical Provider Ser - 09/30/2001 12:00 AM CST [id number] >> STEPHANIE Marin Sep 30, 2001 11:22 AM >> CALL RECEIVED. Contact: Source[facility] Document Id: [id number] documented in this encounter Plan of Treatment Not on filedocumented as of this encounter Visit Diagnoses Not on filedocumented in this encounter
--- OUTSIDE RECORDS SUMMARY | 2022-05-23 11:36 | XMS_ITS | Encounter Summary ---
:1935 Author Organization [facility] Address [address] [place] [address] Care Team Providers Name Role Phone Unavailable Primary Care Provider Unavailable Encounter Details Date Type Department Care Team Description 08/13/2009 Hospital Encounter [facility] INPT/OBSRV Harriet Cortez, CYRIL, C.N.P., D.N.P. [address] [place] [phone] (Wo rk) Social History Tobacco Use Types Packs/Day Years Used Date Smoking Tobacco: Never Assessed Sex Assigned at Date Recorded Not on file documented as of this encounter Plan of Treatment Not on filedocumented as of this encounter Visit Diagnoses Not on filedocumented in this encounter
--- OUTSIDE RECORDS SUMMARY | 2022-05-23 11:36 | XMS_ITS | Encounter Summary ---
:1935 Author Organization [facility] Address [address] [place] [address] Care Team Providers Name Role Phone Unavailable Primary Care Provider Unavailable Encounter Details Date Type Department Care Team Description 12/29/2009 Hospital Encounter HX [facility] Jordi Villarreal, INPT/OBSRV M.D. [address] [place] [phone] (Wo rk) Social History Tobacco Use Types Packs/Day Years Used Date Smoking Tobacco: Never Assessed Sex Assigned at Date Recorded Not on file documented as of this encounter Plan of Treatment Not on filedocumented as of this encounter Visit Diagnoses Not on filedocumented in this encounter
--- OUTSIDE RECORDS SUMMARY | 2022-05-23 11:36 | XMS_ITS | Encounter Summary ---
:1935 Author Organization [facility] Address [address] [place] [address] Care Team Providers Name Role Phone Unavailable Primary Care Provider Unavailable Encounter Details Date Type Department Care Team Description 01/26/2001 Hospital Encounter HX [facility] Abelino Barbosa M.D. [address] [place] [address] (Wo rk) Social History Tobacco Use Types Packs/Day Years Used Date Smoking Tobacco: Never Assessed Sex Assigned at Date Recorded Not on file documented as of this encounter Progress Notes Conversion, Historical Provider Ser - 01/26/2001 8:40 AM CDT [id number] The current gellhorn gives rectal pressure otherwise working OK. Will try a 2 1/4.2 1/4 placed wit hout difficulty.return to clinic as needed Source: [facility] Document Id: [id number] documented in this encounter Plan of Treatment Not on filedocumented as of this encounter Visit Diagnoses Not on filedocumented in this encounter
--- OUTSIDE RECORDS SUMMARY | 2022-05-23 11:36 | XMS_ITS | Encounter Summary ---
:1935 Author Organization [facility] Address [address] [place] [id number] Care Team Providers Name Role Phone Unavailable Primary Care Provider Unavailable Encounter Details Date Type Department Care Team Description 08/21/2008 Hospital Encounter HX [facility] INPT/OBSRV Leilani Marques M.D. [address] [place], [place] [address] (Wo rk) Social History Tobacco Use Types Packs/Day Years Used Date Smoking Tobacco: Never Assessed Sex Assigned at Date Recorded Not on file documented as of this encounter Plan of Treatment Not on filedocumented as of this encounter Visit Diagnoses Not on filedocumented in this encounter
--- OUTSIDE RECORDS SUMMARY | 2022-05-23 11:36 | XMS_ITS | Encounter Summary ---
:1935 Author Organization [facility] Address [address] [place] [address] Care Team Providers Name Role Phone Unavailable Primary Care Provider Unavailable Encounter Details Date Type Department Care Team Description 01/20/2001 Hospital Encounter HX [facility] Abelino Barbosa M.D. [address] [place] [address] (Wo rk) Social History Tobacco Use Types Packs/Day Years Used Date Smoking Tobacco: Never Assessed Sex Assigned at Date Recorded Not on file documented as of this encounter Progress Notes Conversion, Historical Provider Ser - 01/20/2001 1:40 PM CDT [id number] Kathryn Leon has suddenly had a feeling [...] repair with enterocele repair in ture Source: [facility] Document Id: [id number] documented in this encounter Plan of Treatment Not on filedocumented as of this encounter Visit Diagnoses Not on filedocumented in this encounter
--- OUTSIDE RECORDS SUMMARY | 2022-05-23 11:36 | XMS_ITS | Encounter Summary ---
:1935 Author Organization [facility] Address [address] [place] [address] Care Team Providers Name Role Phone Unavailable [...]
[2022-05-23 15:17] LABS: Albumin* 4.3 g/dL (3.3-5.0)
[2022-05-23 15:20] LABS: Alkaline Phosphatase* 105 U/L (40-150); Aspartate Amino Transferase* 54 U/L (12-35); Bilirubin Direct* 0.2 mg/dL (0.0-0.5); Bilirubin Total* 0.4 mg/dL (0.1-1.5); Total Protein* 6.8 g/dL (6.0-8.3)
[2022-05-23 15:21] LABS: Alanine Aminotransferase* 69 U/L (4-35)
== END 2022-05-23 15:22 | disposition home or self-care (01) ==
PROVIDERS: PCP Nurse Practitioner Family; Visit Provider Nurse Practitioner Family
DX: Z51.81 Encounter for therapeutic drug level monitoring (principal)
CPT/HCPCS: 36415; 80076

== ENCOUNTER 2022-09-23 14:10 | Outpatient (CLI) | payer MEDICARE, OTHER, SELFPAY ==
[2022-09-23 21:26] LABS: Chloride* 104 mmol/L (96-114); Potassium* 4.1 mmol/L (3.6-5.1); Sodium* 138 mmol/L (135-149)
[2022-09-23 21:29] LABS: Carbon Dioxide* 28 mmol/L (20-32); Creatinine* 0.8 mg/dL (0.5-1.5); Estimated Glomerular Filt Rate 72 ml/min
[2022-09-23 21:30] LABS: Blood Urea Nitrogen* 19 mg/dL (7-30); Calcium* 9.3 mg/dL (8.4-10.6); Glucose* 113 mg/dL (60-115)
[2022-09-23 21:45] LABS: NT Pro B Type NatriureticPept* 264 pg/mL
== END 2022-09-23 14:11 | disposition home or self-care (01) ==
PROVIDERS: PCP Nurse Practitioner Family; Visit Provider Nurse Practitioner Family
DX: R60.0 Localized edema (principal); I10 Essential (primary) hypertension; R74.8 Abnormal levels of other serum enzymes
CPT/HCPCS: 80048; 83880

== ENCOUNTER 2022-12-09 17:27 | Outpatient (CLI) | payer MEDICARE, OTHER, SELFPAY | END 2022-12-09 17:28 | disposition home or self-care (01) | PROVIDERS: PCP Nurse Practitioner Family; Visit Provider Nurse Practitioner Family | DX: R39.15 Urgency of urination (principal); N39.0 Urinary tract infection, site not specified | CPT/HCPCS: 81015; 87086; 87186 ==

== ENCOUNTER 2023-06-15 11:50 | Outpatient (CLI) | payer MEDICARE, OTHER, SELFPAY | END 2023-06-15 11:51 | disposition home or self-care (01) | PROVIDERS: PCP Nurse Practitioner Family; Visit Provider Nurse Practitioner Family | DX: R53.83 Other fatigue (principal); M54.9 Dorsalgia, unspecified | CPT/HCPCS: 80048; 81015; 85025; 87086 ==

== ENCOUNTER 2023-11-02 09:36 | Outpatient (CLI) | payer MEDICARE, OTHER, SELFPAY ==
--- OUTSIDE RECORDS SUMMARY | 2023-11-02 09:40 | XMS_ITS | Clinical Summary ---
Author Name Unknown Organization [facility] Address [address] [place] [address] Care Team Providers Care Vocational Teacher Name Role Phone Elsewhere, Pcp Primary Care Provider Unavailabl e Source Comments Patient records contain information from all sites at [facility]. For routine questions regarding patient records, call [phone] during business hours, M-F 8:00 AM - 5:00 PM Central Time. Record requests for emergency care only can be directed to [phone] at any time.[facility] Allergies Active Allergy Reactions Criticality Noted Date Comments Gluten Other (see comments) 10/25/2010 cerner listed no reaction Influenza Virus Vaccines Other (see comments) 10/20/2006 Miconazole Other (see comments) 12/10/2013 MICONAZOLE NITRATE Nut - Unspecified Other (see comments) 10/25/19 11 cerner listed no reaction Peanut Hives (Reselect Reaction),Anaphylaxi s 12/20/2011 Medications Medication Sig Dispensed Refills Start Date End Date Status CYANOCOBALAMIN, VITAMIN B-12, ORAL Take 1,000 mcg by mouth daily. 0 10/25/2010 Active ferrous sulfate 325 mg (65 mg iron) tablet Take 1 tablet by mouth daily. 0 11/02/2013 Active MULTIVITAMIN ORAL Take 1 tablet by mouth daily. 0 10/25/2010 Active fluticasone propionate (FLONASE) 50 mcg/actuation nasal spray Administer 2 sprays into each nostril daily as needed for rhinitis or allergies. 16 g 12 05/14/2019 Active Additional Information Patient taking differently:2 spray each nostrilDaily, Reported on 11/19/2021 omeprazole (PriLOSEC) [address] capsule Take 1 capsule by mouth daily. 0 05/20/2019 Active dorzolamide-timolo L (COSOPT) 22.3-6.8 mg/mL ophthalmic solution Administer 1 drop into the right eye daily. 0 Active cycloSPORINE (RESTASIS) 0.05 % ophthalmic emulsion Administer 1 drop into both eyes 2 (two) times a day. 0 Active fexofenadine-pseud oephedrine (MING-D) 60-120 mg per 12 hr tablet Take 1 tablet by mouth 2 (two) times a day. 0 Active calcium carbonate-vitamin D3 1,500 mg (600 mg calcium)-10 mcg (400 Unit) per tablet Take 1 tablet by mouth 2 (two) times a day with meals. 0 Active meclizine (ANTIVERT) 25 mg tablet Take 25 mg by mouth as needed. 0 01/31/2021 Active losartan (COZAAR) 25 mg tablet 0 10/17/2021 Active colchicine (COLCRYS) 0.6 mg tablet 0 10/21/2021 Active alendronate (FOSAMAX) 70 mg tablet TAKE 1 TABLET EVERY 7 DAYS (WEEKLY) ON AN EMPTY STOMACH, REMAIN UPRIGHT FOR AT LEAST 30 MINUTES 12 tablet 3 03/05/2022 Active fexofenadine-pseud oephedrine (MING-D) 60-120 mg per 12 hr tablet Take 1 tablet by mouth 2 (two) times a day. 180 tablet 1 05/26/[address] tablet Take 81 mg by mouth daily. 0 Active chlorthalidone (HYGROTON) 25 mg tablet Take 1 tablet (25 mg total) by mouth daily. 90 tablet 3 10/23/2022 Active fexofenadine-pseud oephedrine (MING-D) 60-120 mg per 12 hr tablet Take 1 tablet by mouth 2 (two) times a day. 180 tablet 1 02/20/2023 Active fexofenadine-pseud oephedrine (MING-D) 60-120 mg per 12 hr tablet Take 1 tablet by mouth 2 (two) times a day. 180 tablet 1 03/05/2023 Active hydroCHLOROthiazid e (HYDRODIURIL) 12.5 mg tablet Take 1 tablet (12.5 mg total) by mouth every morning. 90 tablet 3 07/02/2023 Active alendronate (FOSAMAX) 70 mg tablet TAKE 1 TABLET EVERY 7 DAYS (WEEKLY) ON AN EMPTY STOMACH REMAIN UPRIGHT FOR AT LEAST 30 MINUTES 12 tablet 3 09/10/2023 Active nirmatrelvir-riton avir (Paxlovid) 150-100 mg dose pack Take 150 mg nirmatrelvir (one 150 mg tablet) with one 100 mg ritonavir (one 100 mg tablet), with both tablets taken together by mouth twice daily for 5 days 20 tablet 0 09/23/2023 Active Active Problems Problem Noted Date Diagnosed Date Osteoporosis 07/14/2019 Vertigo Benign Paroxysmal Positional Bilateral 0 05/13/2019 Vertigo 05/12/2019 Arthritis Rheumatoid 10/25/2010 Overview: Arthritis, rheumatoid* Encounters Date Type Department Care Team Description 09/08/2023 Refill Division of Endocrinology in [place], [place] [address] [place] [address] Amadou Sandoval M.D., Ph.D. Med Refill from Last 3 Months Immunizations Name Administration Dates Next Due HZV (ZOSTAVAX) 10/02/2010 HepA Adult 07/30/2006,12/28/2001 HepB (discontinued) adolesce nt/high risk infant 06/29/2006,01/31/2002,12/28/2001 Hib (PRP-T) (ACTHIB, HIBERIX) 02/01/2007 Influenza (IM) Preservative Free 009,08/22/2009,08/21/2009,08/20,08/20/2009 Influenza, Unspecified 09/24/2016,2016,07/12/2015,07/10,07/26/2014,07/05/2013,07/04/2013 ,07/01/2013,08/02/2012,07/29/2012,07/15,09/25/2011,09/25/2011, 0 MCV4 (Menactra)(Discontinued) 02/01/2007 MPSV4 02/01/2007 PCV13 07/10/2015 PPSV23(Discontinued) 02/01/2007,02/01/2007 SARS-COV-2 (COVID-19) - MODERNA(Discontinued) 02/12/2022,07/09/2021 Td (Adult), adsorbed 05/29/2000 Tdap 02/16/2021,06/17/2011,11/04/2010 influenza high dose (65 year s or older) (PF) 08/11/2018,08/10/2018,08/27/2017,08/2608/27/2017 Family History Medical History Relation Name Comments [...] Date Smoking Tobacco: Never Smokeless Tobacco: Never Tobacco Cessation:Counseling Given: Not Answered Alcohol Use Standard Drinks/Week Comments Not Currently 0 (1 standard drink = 0.6 oz pur e alcohol) Humiliation, Afraid, Rape, and Kick questionnair e Answer Date Recorded Within the last year, have y ou been afraid of your partner or ex-partner? No 09/27/2022 Within the last year, have y ou been humiliated or emotionally abused in other ways by your partner or ex-partner? No Within the last year, have y ou been kicked, hit, slapped, or otherwise physically hurt by your partner or ex-partner? No 09/27/2022 Within the last year, have y ou been raped or forced to have any kind of sexual activity by your partner or ex-partner? No 09/27/2022 Social Connection and Isolat ion Panel [NHANES] Answer Date Recorded In a typical week, how many times do you talk on the phone with family, friends, or neighbors? More than three times a week 09/27/2022 How often do you get togethe r with friends or relatives? Twice a week 09/27/2022 How often do you attend [facility] or episcopal services? More than 4 times per year 09/27/2022 Do you belong to any clubs o r organizations such as amish groups, unions, fraternal or athletic groups, or school groups? Yes 09/27/2022 How often do you attend meet ings of the clubs or organizations you belong to? More than 4 times per year 09/27/2022 Are you , , di vorced, , never , or living with a partner? 09/27/2022 AUDIT-C Answer Date Recorded Q1: How often do you have a drink containing alcohol? Monthly or less 09/27/2022 Q2: How many drinks containi ng alcohol do you have on a typical day when you are drinking? Patient does not drink Q3: How often do you have si x or more drinks on one occasion? Never 09/27/2022 Overall Financial Resource Strain (CARDIA) Answe r Date Recorded How hard is it for you to pa y for the very basics like food, housing, medical care, and heating? Not hard at all 09/27/2022 [facility] Occupat ional Health - Occupational Stress Questionnaire Answer Date Recorded Do you feel stress - tense, restless, nervous, or anxious, or unable to sleep at night because your mind is troubled all the time - these days? Not at all 09/27/2022 Exercise Vital Sign Answer Date Recorde d On average, how many days pe r week do you engage in moderate to strenuous exercise (like a brisk walk)? 2 days 09/27/2022 On average, how many minutes do you engage in exercise at this level? 40 min 09/27/2022 Hunger Vital Sign Answer Date Recorded Within the past 12 months, y ou worried that your food would run out before you got the money to buy more. Never true 09/27/19 23 Within the past 12 months, t he food you bought just didn't last and you didn't have money to get more. Never true 09/27/2022 PRAPARE - Transportation Answer Date Re corded In the past 12 months, has l ack of transportation kept you from medical appointments or from getting medications? No 09/14 In the past 12 months, has l ack of transportation kept you from meetings, work, or from getting things needed for daily living? No 09/27/2022 Housing Stability Vital Sign Answer Taran e Recorded In the last 12 months, was t here a time when you were not able to pay the mortgage or rent on time? No 09/27/2022 In the last 12 months, how many places have you lived? 1 09/27/2022 In the last 12 months, was t here a time when you did not have a steady place to sleep or slept in a jail (including now)? No 09/27/2022 Nutrition Answer Date Recorded Nutrition: EVOO Fat Source No 09/27 On average, how many serving s of fruits and vegetables do you eat per day (serving size is equal to 1 cup or approximately the size of a tennis ball)? 0-1 09/27/2022 Dental Answer Date Recorded Dental: Regular Dentist Yes 09/27/19 Employment Answer Date Recorded Employment status Retired 09/27/2022 Education Answer Date Recorded What is the highest level of school you have completed or the highest degree you have received? 12th grade 09/27/2022 Sex and Gender Information Value Date Recorded Sex Assigned at Not on file Gender Identity Not on file Sexual Orientation Not on file Last Filed Vital Signs Vital Sign Reading Time Taken Comments Blood Pressure 140/84 09/30/2022 10:41 AM [employer] Pulse 75 09/30/2022 10:41 AM [employer] Temperature 36.6 ??C (97.9 ??F) 02/16/2021 7:45 PM CD T Respiratory Rate 18 02/16/2021 7:45 PM CDT Oxygen Saturation 95% 02/16/2021 8:30 PM CDT Inhaled Oxygen Concentration - - Weight 71.3 kg (157 lb 3 oz) 09/30/2022 10:41 AM [employer] Height 157 cm (5' 1.81) 09/30/2022 10:41 AM [employer] Body Mass Index 28.93 09/30/2022 10:41 AM [employer] Plan of Treatment Health Maintenance Due Date Last Done Comments Zoster Vaccines (2 of 3) 11/27/2010 10/02/2010 Creatinine Level (Kidney Fun ction Test) 01/29/2022 01/29/2021, 11/01/2020, 10/17/2019, Additional history exists Potassium Level 01/29/2022 01/29/2021, 10/15, 10/17/2019, Additional history exists Sodium Level 01/29/2022 01/29/2021, 10/15, 10/17/2019, Additional history exists Depression Screening (Annual PHQ-2) 09/14/2023 Fall Risk Screen (Annual) 09/14/2023 DTaP,Tdap,and Td Vaccines (4 - Td or Tdap) 02/16/2031 02/16/2021, 06/17/2011, 11/04/2010, Additional history exists Hepatitis A Vaccines Completed 07/30/2006, 12/29/19 Pneumococcal vaccine (65+ years) Completed 07/10/2015, 02/01/2007, 02/01/2007 Influenza Vaccine Completed 07/02/2023, , 07/10/2022, Additional history exists COVID-19 Vaccine Completed 07/14/2023, , 02/12/2022, Additional history exists Medical Devices Implanted Type Area Piece Worker Device Identifier Shelf Expiration Date Model / Serial / Lot Ocular Lens-02/26/2007 Implanted:2006 (Quantity not on file) Ocular Lens Left: Eye Conversions - Default Historical Implant Device Implanted:2014 (Quantity not on file) Ocular Lens Description:Device Status Te xt - OculrLens. Advance Directives For more information, please contact: [phone] Latest Code Status on File Code Status Date Activated Date Inactivated Comments Full Code 01/30/2021 9:47 AM 01/31/2021 5:43 PM Question Answer Comments Full Code: Discussed Code Status History Code Status Date Activated Date Inactivated Comments Full Code 05/13/2019 9:21 PM 05/14/2019 5:58 PM Question Answer Comments Full Code: Discussed Full Code 05/12/2019 9:26 PM 05/13/2019 6:58 PM Question Answer Comments Full Code: Discussed Care Teams Vocational Teacher Relationship Specialty Start Date End Date Elsewhere, Pcp PCP - General Family Medicine 01/31/21
--- OUTSIDE RECORDS SUMMARY | 2023-11-02 09:40 | XMS_ITS | Clinical Summary ---
Author Name Unknown Organization [employer] [facility] Address [place], [place] [address] Care Team Providers Care Card Decorator Name Role Phone Pcp, No Primary Care Provider Unavailabl e Allergies Active Allergy Reactions Criticality Noted Date Comments Gluten *Unknown 12/20/2011 H/O Celiac Disease No Known Drug Allergies *Unknown Peanut Hives,Throat Swelling/Closing 12/20/2011 Medications Medication Sig Dispensed Refills Start Date End Date Status MING-D 12 HOUR 60 MG-120 MG TAB Take one tablet by mouth twice a day 60 3 10/28/2007 Active gatifloxacin (ZYMAXID) 0.5 % ophthalmic solution Place 1 Drop into the eye(s) 4 times daily. 1 Bottle 0 12/17/2011 Active aspirin 81 mg tablet Take 81 mg by mouth once daily with a meal. 0 Active calcium carbonate-vitamin D3, 600 mg-400 unit, (CALCIUM 600 + D) tablet Take 1 tablet by mouth 2 times daily with meals. 0 Active DORZOLAMIDE HCL/TIMOLOL MALEAT (COSOPT OPHT) Place 1 Drop into the eye(s) 2 times daily. 0 Active ferrous gluconate 325 mg tablet Take 325 mg by mouth 2 times daily with meals. 0 Active FLUTICASONE PROPIONATE (FLONASE NASL) Inhale 2 Puffs in the nostril(s) once daily. 0 Active gabapentin (NEURONTIN) 300 mg capsule Take 1 capsule by mouth every morning and 3 capsules at bedtime. 0 Active ibuprofen (ADVIL; MOTRIN) 400 mg tablet Take 400 mg by mouth 3 times daily if needed. 0 Active multivitamin (MVI) tablet Take 1 tablet by mouth once daily. 0 Active CYCLOSPORINE (RESTASIS OPHT) Place 1 Drop into both eyes every 12 hours. 0 Active cyanocobalamin (VITAMIN B-12) 1,000 mcg tablet Take 1,000 mcg by mouth once daily. 0 Active omeprazole (PRILOSEC) 40 mg capsule Take 40 mg by mouth once daily before a meal. 0 Active acetaminophen (TYLENOL EXTRA STRENGTH) 500 mg tablet Take 1,000 mg by mouth every 6 hours if needed. Max acetaminophen dose: 4000mg in 24 hrs. 0 Active cycloSPORINE (RESTASIS) 0.05 % ophthalmic emulsion Place 1 Drop into both eyes every 12 hours. 0 12/20/2013 Active Encounters Date Type Department Care Team Description 10/09/2023 Lab Requisition [facility] [phone] Nneka Griffin MD from Last 3 Months Social History Tobacco Use Types Packs/Day Years Used Date Smoking Tobacco: Never Smokeless Tobacco: Never Comments:non smoker Alcohol Use Standard Drinks/Week Comments Yes 0 (1 standard drink = 0.6 oz pur e alcohol) Rare Sex and Gender Information Value Date Recorded Sex Assigned at Not on file Gender Identity Not on file Sexual Orientation Not on file Obstetrics History Last Filed [...] kg (162 lb 4.1 oz) 12/20/2011 8:55 A M CDT Height 163 cm (5' 4.17) 12/20/2011 8:55 AM CDT Body Mass Index 27.7 12/20/2011 8:55 AM CDT Plan of Treatment Health Maintenance Due Date Last Done Comments Tdap 02/25/1946 Depression screening for age 12+ 1949 BMI (ht and wt on same day) for age 18+ 1955 Tetanus booster 1957 Zoster (shingles) series for age 50+ (1 of 2) 1987 DEXA/DXA scan for age 65+ 2002 Pneumococcal series for age 65+ (1 of 1 - PCV) 2002 COVID-19 vaccine series ( season) 2023 02/12/2022, 07/09/2021 Influenza for age 65+ 05/15/2023 Medical Devices Implanted Type Area Proposition Player Device Identifier Shelf Expiration Date Model / Serial / Lot Valve Barevelt 350mm [id number] [facility] - [id number] Implanted:Qty: 1 on 12/22/2011 at [facility] Right: Eye [employer] 06/13/2013 [id number] / [id number] / Cornea Glycerol Half - [id number] Implanted:Qty: 1 on 12/22/2011 at [facility] Right: Eye [facility] Eye Bank 09/19/2014 [id number]# / [id number] / Procedures Procedure Name Priority Date/Time Associated Diagnosis Comments LAB TRACKING EVENT Routine 10/08/2023 3: 15 PM PAYROLL MANAGER PATH TISSUE EXAM Routine 10/08/2023 3:15 PM PAYROLL MANAGER from Last 3 Months Results * LAB TRACKING EVENT (10/08/2023 3:15 PM PAYROLL MANAGER) Other (Other) Client Collect / Unknown 10/08/2023 3:15 PM PAYROLL MANAGER 10/09/2023 6:04 PM PAYROLL MANAGER Nneka Griffin MD LAB BILL ONLY [facility] [address] [place] [address], * PATH TISSUE EXAM (10/08/2023 3:15 PM PAYROLL MANAGER) Case Report Pathology Report ?Case: [id number] ? Authorizing Provider: ??Nneka Griffin MD ?? Collected: ? 10/08/2023 1515 ? Ordering Location: ? [facility] ?Received: ?10/09/2023 1910 ? Pathologist: ? Michelle Yoon MD ? Specimen: ?Left Hand, Left Dorsal Hand Skin Shave ? 10/13/2023 9:39 AM [facility] [employer] [facility] Final Diagnosis SKIN, LEFT DORSAL HAND, BIOPSY: 1. Benign verrucous keratosis, inflamed 2. Negative for malignancy 10/13/2023 9:39 AM [facility] [facility] Clinical Information Rule out basal cell carcinoma vs squamous cell carcinoma 10/13/2023 9:39 AM [facility] [facility] Gross Description A) Received in formalin, labeled with the patient's name and left dorsal, is a 0.7 x 0.5 cm skin biopsy. The skin surface is smooth and an obvious lesion is not identified. ??The specimen is inked blue, bisected and entirely submitted in one cassette. TMO 10/09/2023 ?? 10/13/2023 9:39 AM [facility] [facility] Microscopic Description The final diagnosis is based on microscopic examination of appropriate sections of all specimens. Sections reveal epidermal verrucous hyperplasia. No atypia or definitive viral cytopathic effect is seen. The presence of ??blue ink is confirmed on tissue sections. 10/13/2023 9:39 AM [facility] [employer] [facility] Additional Information Interpreted at [facility] Central Laboratory - [address], [place] [address] 10/13/2023 9:39 AM PAYROLL MANAGER [employer] [facility] Other (Left Hand) 10/08/2023 3:15 PM PAYROLL MANAGER 10/09/2023 7:10 PM PAYROLL MANAGER Nneka Griffin MD PATHOLOGY/CYTOLOG Y [employer] [facility] [address] [place] [address], from Last 3 Months Advance Directives Latest Code Status on File Code Status Date Activated Date Inactivated Comments Full Code 12/22/2011 12:34 PM 12/22/2011 6:48 PM Care Teams Card Decorator Relationship Specialty Start Date End Date Pcp, No . PCP - General 12/15/13
--- OUTSIDE RECORDS SUMMARY | 2023-11-02 09:41 | XMS_ITS ---
Author Name Unknown Organization [facility] Address [address] [place] [address] Care Team Providers Care Power Regulator Name Role Phone Unavailable Unavailable Unavailable Surgery Details Not on file Complications Check Surgery Details section. Procedure Estimated Blood Loss Check Surgery Details section. Procedure Findings Check Surgery Details section. Procedure Specimens Taken Check Surgery Details section.
--- OUTSIDE RECORDS SUMMARY | 2023-11-02 09:41 | XMS_ITS | Referral Summary ---
Author Name Unknown Organization [facility] Address [address] [place] [address] Care Team Providers Care Inspecting And Testing Lead Hand Name Role Phone Elsewhere, Pcp Primary Care Provider Unavailabl e Source Comments Patient records contain information from all sites at [facility]. For routine questions regarding patient records, call [phone] during business hours, M-F 8:00 AM - 5:00 PM Central Time. Record requests for emergency care only can be directed to [phone] at any time.[facility] Encounters Date Type Department Care Team Description 09/08/2023 Refill Division of Endocrinology in [place], [place] [address] [place] [address] Amadou Sandoval M.D., Ph.D. Med Refill from Last 3 Months Allergies Active Allergy Reactions Criticality Noted Date [...] 05/12/2019 Arthritis Rheumatoid 10/25/2010 Overview: Arthritis, rheumatoid* Immunizations Name Administration Dates Next Due HZV [...] (65 year s or older) (PF) 08/11/2018,08/10/2018,08/27/2017,08/2608/27/2017 Social History Tobacco Use Types Packs/Day Years [...] week 09/27/2022 How often do you attend chur or confucianist services? More than 4 times per year 09/27/2022 Do you belong to any clubs o r organizations such as adventism groups, unions, fraternal or athletic groups, or [...] you are drinking? Patient does not drink 3 Q3: How often do you have si x or more drinks on one occasion? Never 09/27/2022 Overall Financial Resource Strain (CARDIA) Answe r Date Recorded How hard is it for you to pa y for the very basics like food, housing, medical care, and heating? Not hard at all 09/27/2022 [facility] Occupat ional Health - Occupational Stress [...] place to sleep or slept in a long term (including now)? No 09/27/2022 Nutrition Answer Date [...] Comments Blood Pressure 140/84 09/30/2022 10:41 AM PHYSICIAN'S AIDE Pulse 75 09/30/2022 10:41 AM PHYSICIAN'S AIDE Temperature 36.6 ??C (97.9 ??F) 02/16/2021 7:45 PM CD T Respiratory Rate 18 02/16/2021 7:45 PM CDT Oxygen Saturation 95% 02/16/2021 8:30 PM CDT Inhaled Oxygen Concentration - - Weight 71.3 kg (157 lb 3 oz) 09/30/2022 10:41 AM PHYSICIAN'S AIDE Height 157 cm (5' 1.81) 09/30/2022 10:41 AM PHYSICIAN'S AIDE Body Mass Index 28.93 09/30/2022 10:41 AM PHYSICIAN'S AIDE Plan of Treatment Not on file Medical Devices Implanted Type Area Custodial Services Manager Device Identifier Shelf Expiration Date Model / Serial / Lot Ocular Lens-02/26/2007 Implanted:2006 (Quantity not on file) Ocular Lens Left: Eye Conversions - Default Historical Implant Device Implanted:2014 (Quantity not on file) Ocular Lens Description:Device Status Te xt - OculrLens. Advance Directives For more information, please contact: [phone] Latest Code Status on File Code Status [...] Answer Comments Full Code: Discussed Care Teams Inspecting And Testing Lead Hand Relationship Specialty Start Date End Date Elsewhere, Pcp PCP - General Family Medicine 01/31/21
--- OUTSIDE RECORDS SUMMARY | 2023-11-02 09:41 | XMS_ITS | Encounter Summary ---
Author Name Unknown Organization [facility] Address [address] [place] [id number] Care Team Providers Care Woodworking Machine Feeder Name Role Phone Elsewhere, Pcp Primary Care Provider Unavailabl e Reason for Visit * Reason Comments Med Refill Encounter Details Date Type Department Care Team ([facility] st Contact Info) Description 09/08/2023 Refill Division of Endocrinology in [place], [place] [address] [place] [phone] Amadou Sandoval M.D., Ph.D. [address] [place] [phone] Med Refill Social History Tobacco Use Types Packs/Day Years [...] 09/27/2022 How often do you attend chur ch or denominational services? More than 4 times per year 09/27/2022 Do you belong to any clubs o r organizations such as jainism groups, unions, fraternal or athletic groups, or [...] and heating? Not hard at all 09/27/2022 [facility] - Occupational Stress [...] place to sleep or slept in a penitentiary (including now)? No 09/27/2022 Nutrition Answer Date [...] on file Sexual Orientation Not on file documented as of this encounter Plan of Treatment Not on file documented as of this encounter Visit Diagnoses Not on filedocumented in this encounter Additional Health Concerns Assessment Noted Time PHQ-9 Depression Total Score: 0 11/02/19 14 2:53 PM WIND ENERGY PROJECT MANAGER documented as of this encounter Care Teams Woodworking Machine Feeder Relationship Specialty Start Date End Date Elsewhere, Pcp PCP - General Family Medicine 01/31/21 documented as of this encounter
== END 2023-11-02 09:37 | disposition home or self-care (01) ==
PROVIDERS: PCP Nurse Practitioner Family; Visit Provider Nurse Practitioner Family
DX: Z13.0 Encounter for screening for diseases of the blood and blood-forming organs and certain disorders involving the immune mechanism (principal); Z13.220 Encounter for screening for lipoid disorders; I10 Essential (primary) hypertension
CPT/HCPCS: 80053; 80061; 85025

== ENCOUNTER 2024-03-29 12:55 | Outpatient (CLI) | payer MEDICARE, OTHER, SELFPAY ==
--- OUTSIDE RECORDS SUMMARY | 2024-03-29 09:33 | XMS_ITS | Continuity of Care Document ---
Author Name [facility] Organization [facility] Care Team Providers Care Supervisor Display Fabrication Name Role Phone [facility] Unavailable Unavailable Medications Combined list of outpatient medications from Department of Defense and Veterans Affairs facilities.Medications provided include 1) outpatient medications from the last 15 months, and 2) patient-reported medications. Medication Details Route Status Patient Instructions Prescription Expires Prescription Number Last Dispense Date Ordering Provider Order Date Order Qty Source ALENDRONATE SODIUM (alendronat e sodium), 70 MG, TABLET, ORAL, [facility], 4 ea. BLIST PACK Active [id number] 3 2022 12 Pharmac y Data Transac tion Service Facilit y ALENDRONATE SODIUM (alendronat e sodium), 70 MG, TABLET, ORAL, [facility]., 4 ea. BLIST PACK Active [id number] 4 2023 12 Pharmac y Data Transac tion Service Facilit y ALENDRONATE SODIUM (alendronat e sodium), 70 MG, TABLET, ORAL, [facility] 4 ea. BLIST PACK Active [id number] 4 2023 12 Pharmac y Data Transac tion Service Facilit y CYCLOSPORIN E (cyclospori ne), 0.05 %, DROPERETTE, OPHTHALMIC, [employer] 30 ea. VIAL Active [id number] 3 2022 180 Pharmac y Data Transac tion Service Facilit y CYCLOSPORIN E (cyclospori ne), 0.05 %, DROPERETTE, OPHTHALMIC, [employer] 30 ea. VIAL Active [id number] 4 2023 180 Pharmac y Data Transac tion Service Facilit y FLUOROURACI L (FLUOROURAC [place]), 5 %, CREAM(GM), TOPICAL, [facility] [employer], 40 g TUBE Cancele d [id number] : 2023 0 Pharmac y Data Transac tion Service Facilit y FLUOROURACI L (FLUOROURAC IL), 5 %, CREAM(GM), TOPICAL, [facility] [employer], 40 g TUBE Active [id number] 4 2023 40 Pharmac y Data Transac tion Service Facilit y FLUTICASONE PROPIONATE (FLUTICASON E PROPIONATE) , 50 MCG, SPRAY SUSP, NASAL, [employer] 16 g AER W/ADAP Cancele d [id number] : 2023 0 Pharmac y Data Transac tion Service Facilit y FLUTICASONE PROPIONATE (FLUTICASON E PROPIONATE) , 50 MCG, SPRAY SUSP, NASAL, [employer] 16 g AER W/ADAP Active [id number] 4 2023 16 Pharmac y Data Transac tion Service Facilit y FLUTICASONE PROPIONATE (FLUTICASON E PROPIONATE) , 50 MCG, SPRAY SUSP, NASAL, [employer] 16 g AER W/ADAP Active [id number] 4 2023 16 Pharmac y Data Transac tion Service Facilit y GABAPENTIN (gabapentin ), 100 MG, CAPSULE, ORAL, [employer] 1000 ea. BOTTLE Active [id number] 4 2023 90 Pharmac y Data Transac tion Service Facilit y HYDROCHLORO THIAZIDE (hydrochlor othiazide), 12.5 MG, TABLET, ORAL, [employer] 1000 ea. BOTTLE Active [id number] 4 2023 90 Pharmac y Data Transac tion Service Facilit y LOSARTAN POTASSIUM (losartan potassium), 25 MG, TABLET, ORAL, [facility], 1000 ea. BOTTLE Cancele d [id number] : 2023 0 Pharmac y Data Transac tion Service Facilit y LOSARTAN POTASSIUM (losartan potassium), 25 MG, TABLET, ORAL, [facility], 1000 ea. BOTTLE Active [id number] 4 2023 90 Pharmac y Data Transac tion Service Facilit y OMEPRAZOLE (omeprazole ), 40 MG, CAPSULE DR, ORAL, [facility], 500 ea. BOTTLE Active [id number] 4 2023 90 Pharmac y Data Transac tion Service Facilit y OMEPRAZOLE (omeprazole ), 40 MG, CAPSULE DR, ORAL, [facility], 500 ea. BOTTLE Active [id number] 2023 90 Pharmac y Data Transac tion Service Facilit y OMEPRAZOLE (omeprazole ), 40 MG, CAPSULE DR, ORAL, [facility] [facility], 500 ea. BOTTLE Active [id number] 3 2022 90 Pharmac y Data Transac tion Service Facilit y OMEPRAZOLE (omeprazole ), 40 MG, CAPSULE DR, ORAL, [facility], 500 ea. BOTTLE Active [id number] 4 2023 90 Pharmac y Data Transac tion Service Facilit y PAXLOVID (EUA) (nirmatrelv ir/ritonavi r), 150-100 MG, TAB DS PK, ORAL, [facility] 20 ea. BLIST PACK Cancele d [id number] : 2023 0 Pharmac y Data Transac tion Service Facilit y PAXLOVID (EUA) (nirmatrelv ir/ritonavi r), 150-100 MG, TAB DS PK, ORAL, [facility] 20 ea. BLIST PACK Active [id number] 2023 20 Pharmac y Data Transac tion Service Facilit y SHINGRIX (varicella- zoster virus glycoprotei n E,rec/AS01B adjuvant/PF ), 50 MCG/0.5, KIT, INTRAMUSC, GLAXOSMITHK LINE, 1 ea. KIT Active [id number] 4 2023 1 Pharmac y Data Transac tion Service Facilit y Immunizations Combined list of available immunizations from the Department of Defense and Veterans Affairs facilities. Immunization Series Date Given Administered By Site Reaction Lot Number CVX Code Drug Finance Manager Status Comments Source zoster recombinant 2023 () Not Given zoster recombina nt DoD Social History Combined list of available smoking, tobacco, and other social history from Department of Defense and Veterans Affairs facilities. Social History Type Response Date Comment Sour e This section is an empty social history section. DoD
== END 2024-03-29 12:56 | disposition home or self-care (01) ==
PROVIDERS: PCP Nurse Practitioner Family; Visit Provider Nurse Practitioner Family
DX: E87.1 Hypo-osmolality and hyponatremia (principal)
CPT/HCPCS: 80048; 84295

== ENCOUNTER 2024-04-04 10:21 | Outpatient (CLI) | payer MEDICARE, OTHER, SELFPAY ==
--- OUTSIDE RECORDS SUMMARY | 2024-04-04 10:24 | XMS_ITS | Continuity of Care Document ---
Author Name [facility] Organization [facility] Care Team Providers Care Decision Support Manager Name Role Phone [facility] Unavailable Unavailable Medications Combined list of outpatient [...] EXELAN PHARMACE, 4 ea. BLIST PACK Active [id number] 3 2022 12 Pharmac y Data Transac tion Service Facilit y ALENDRONATE SODIUM (alendronat e sodium), 70 MG, TABLET, ORAL, [facility]., 4 ea. BLIST PACK Active [id number] 2023 12 Pharmac y Data Transac tion Service Facilit y ALENDRONATE SODIUM (alendronat e sodium), 70 MG, TABLET, ORAL, [facility]., 4 ea. BLIST PACK Active [id number] 4 2023 12 Pharmac y Data Transac tion Service Facilit y CYCLOSPORIN E (cyclospori ne), 0.05 %, DROPERETTE, OPHTHALMIC, [employer] 30 ea. VIAL Active [id number] 3 2022 180 Pharmac y Data Transac tion Service Facilit y CYCLOSPORIN E (cyclospori ne), 0.05 %, DROPERETTE, OPHTHALMIC, [employer] 30 ea. VIAL Active [id number] 2023 180 Pharmac y Data Transac tion Service Facilit y FLUOROURACI L (FLUOROURAC [place]), 5 %, CREAM(GM), TOPICAL, [facility] [employer], 40 g TUBE Cancele d [id number] : 2023 0 Pharmac y Data Transac tion Service Facilit y FLUOROURACI L (FLUOROURAC [place]), 5 %, CREAM(GM), TOPICAL, [facility] [employer], 40 g TUBE Active [id number] 4 2023 40 Pharmac y Data Transac tion Service Facilit y FLUTICASONE PROPIONATE (FLUTICASON E PROPIONATE) , 50 MCG, SPRAY SUSP, NASAL, [employer] 16 g AER W/ADAP Cancele d [id number] : 2023 0 Pharmac y Data Transac tion Service Facilit y FLUTICASONE PROPIONATE (FLUTICASON E PROPIONATE) , 50 MCG, SPRAY SUSP, NASAL, [employer] 16 g AER W/ADAP Active [id number] 2023 16 Pharmac y Data Transac tion Service Facilit y FLUTICASONE PROPIONATE (FLUTICASON E PROPIONATE) , 50 MCG, SPRAY SUSP, NASAL, [employer] 16 g AER W/ADAP Active [id number] 4 2023 16 Pharmac y Data Transac tion Service Facilit y GABAPENTIN (gabapentin ), 100 MG, CAPSULE, ORAL, [employer] 1000 ea. BOTTLE Active [id number] 4 2023 90 Pharmac y Data Transac tion Service Facilit y HYDROCHLORO THIAZIDE (hydrochlor othiazide), 12.5 MG, TABLET, ORAL, [employer] 1000 ea. BOTTLE Active [id number] 4 2023 90 Pharmac y Data Transac tion Service Facilit y LOSARTAN POTASSIUM (losartan potassium), 25 MG, TABLET, ORAL, [facility], 1000 ea. BOTTLE Cancele d [id number] : 2023 0 Pharmac y Data Transac tion Service Facilit y LOSARTAN POTASSIUM (losartan potassium), 25 MG, TABLET, ORAL, [facility], 1000 ea. BOTTLE Active [id number] 4 2023 90 Pharmac y Data Transac tion Service Facilit y OMEPRAZOLE (omeprazole ), 40 MG, CAPSULE DR, ORAL, [facility], 500 ea. BOTTLE Active [id number] 4 2023 90 Pharmac y Data Transac tion Service Facilit y OMEPRAZOLE (omeprazole ), 40 MG, CAPSULE DR, ORAL, [facility] [facility], 500 ea. BOTTLE Active [id number] 2023 90 Pharmac y Data Transac tion Service Facilit y OMEPRAZOLE (omeprazole ), 40 MG, CAPSULE DR, ORAL, [facility] [facility], 500 ea. BOTTLE Active [id number] 3 2022 90 Pharmac y Data Transac tion Service Facilit y OMEPRAZOLE (omeprazole ), 40 MG, CAPSULE DR, ORAL, [facility] [facility], 500 ea. BOTTLE Active [id number] 4 2023 90 Pharmac y Data Transac tion Service Facilit y PAXLOVID (EUA) (nirmatrelv ir/ritonavi r), 150-100 MG, TAB DS PK, ORAL, [facility] 20 ea. BLIST PACK Cancele d [id number] : 2023 0 Pharmac y Data Transac tion Service Facilit y PAXLOVID (EUA) (nirmatrelv ir/ritonavi r), 150-100 MG, TAB DS PK, ORAL, [facility] 20 ea. BLIST PACK Active [id number] 4 2023 20 Pharmac y Data Transac tion Service Facilit y SHINGRIX (varicella- zoster virus glycoprotei n E,rec/AS01B adjuvant/PF ), 50 MCG/0.5, KIT, INTRAMUSC, GLAXOSMITHK LINE, 1 ea. KIT Active [id number] 4 2023 1 Pharmac y Data Transac tion Service Facilit y Immunizations Combined list of available immunizations from the Department of Defense and Veterans Affairs facilities. Immunization Series Date Given Administered By Site Reaction Lot Number CVX Code Drug Dispensing Lead Status Comments Source zoster recombinant 2023 () Not Given zoster recombina nt DoD Social History Combined list of available smoking, tobacco, and other social history from Department of Defense and Veterans Affairs facilities. Social History Type Response Date Comment Sour e This section is an empty social history section. DoD
--- OUTSIDE RECORDS SUMMARY | 2024-04-04 10:24 | XMS_ITS | Clinical Summary ---
Author Organization [facility] Address [place], [place] [address] Care Team Providers Care Print And Pattern Designer Name Role Phone Sylvester Dee Primary Care Provider Unavail able Allergies Active Allergy Reactions Criticality Noted Date Comments Gluten Other - Describe In Comment Field Unknown 12/20/2011 H/O Celiac Disease Influenza Virus Vaccines *Unknown Unknown 10/20/2006 Miconazole Other - Describe In Comment Field Unknown 12/10/2013 MICONAZOLE NITRATE Nut - Unspecified Other - Describe In Comment Field Unknown 10/25/2010 cerner listed no reaction Peanut Anaphylaxis,Hives,Th roat Swelling/Closing High 12/20/2011 Medications Medication Sig Dispensed Refills Start Date End Date Status MING-D 12 HOUR 60 MG-120 MG TAB Take one tablet by mouth twice a day 60 3 10/28/19 08 Active calcium carbonate-vitamin D3, 600 mg-400 unit, (CALCIUM 600 + D) tablet Take 1 tablet by mouth 2 times daily with meals. Active FLUTICASONE PROPIONATE (FLONASE NASL) Inhale 2 Puffs into affected nostril(s) once daily if needed. Active multivitamin (MVI) tablet Take 1 tablet by mouth once daily. Active cyanocobalamin (VITAMIN B-12) 1,000 mcg tablet Take 1,000 mcg by mouth once daily in the afternoon. Active omeprazole (PRILOSEC) 40 mg capsule Take 40 mg by mouth once daily before a meal. Active cycloSPORINE (RESTASIS) 0.05 % ophthalmic emulsion Place 1 Drop into both eyes every 12 hours. 0 12/21/19 14 Active alendronate (FOSAMAX) 70 mg tablet Take 70 mg by mouth once a week in the morning. 09/10/20 Active colchicine 0.6 mg tablet Take 0.6 mg by mouth once daily if needed. 03/10/20 Active diclofenac topical (VOLTAREN) 1 % gel Apply 4 g topically to affected area(s) four times daily. 03/08/20 24 Active ferrous sulfate, 65 mg elemental, tablet Take 1 Tablet (325 mg) by mouth once daily with a meal. 03/10/20 Active gabapentin (NEURONTIN) 100 mg capsule Take 100 mg by mouth once daily if needed. 03/10/20 24 Active lidocaine 4 % topical patch Apply 1 Patch on dry, clean, hairless skin every 12 hours if needed. 03/08/20 24 024 Active polyethylene glycoL (MIRALAX) 17 gram/scoop powder Mix 17 g in liquid then take by mouth once daily if needed. 03/10/20 24 Active acetaminophen (TYLENOL EXTRA STRGTH) 500 mg tablet Take 2 Tablets (1,000 mg) by mouth three times daily. AND QD PRN. Max acetaminophen dose: 4000mg in 24 hrs. 03/15/20 Active losartan (COZAAR) 25 mg tablet Take 25 mg by mouth once daily. Hold for SBP <100 11/02/19 24 Active sennosides-docusat e (SENOKOT S) (8.6-50 mg) tablet Take 1 Tablet by mouth 2 times daily if needed. 03/15/20 24 Active meclizine (ANTIVERT) 25 mg tablet Take 25 mg by mouth once daily if needed for Vertigo. 03/22/20 24 Active ondansetron (ZOFRAN ODT) [address] 4 mg on the tongue every 6 hours if needed for Nausea/Vomiting. 03/22/20 24 Active oxyCODONE (ROXICODONE) 5 mg immediate release tabletIndications: Pain Take 1 Tablet (5 mg) by mouth every 4 hours if needed for Pain. 10 Tablet 03/24/20 24 Active gatifloxacin (ZYMAXID) 0.5 % ophthalmic solution Place 1 Drop into the eye(s) 4 times daily. 1 Bottle 0 12/17/19 12 024 Discontinued(Ot her - add note to specify (E-cancel not sent)) aspirin 81 mg tablet Take 81 mg by mouth once daily with a meal. Discontinued(Ot her - add note to specify (E-cancel not sent)) DORZOLAMIDE HCL/TIMOLOL MALEAT (COSOPT OPHT) Place 1 Drop into the eye(s) 2 times daily. Discontinued(Ot her - add note to specify (E-cancel not sent)) ferrous gluconate 325 mg tablet Take 325 mg by mouth 2 times daily with meals. Discontinued(Ot her - add note to specify (E-cancel not sent)) gabapentin (NEURONTIN) 300 mg capsule Take 1 capsule by mouth every morning and 3 capsules at bedtime. Discontinued(Re order (E-cancel not sent)) ibuprofen (ADVIL; MOTRIN) 400 mg tablet Take 400 mg by mouth 3 times daily if needed. Discontinued(Ot her - add note to specify (E-cancel not sent)) CYCLOSPORINE (RESTASIS OPHT) Place 1 Drop into both eyes every 12 hours. Discontinued(Du plicate therapy (E-cancel not sent)) acetaminophen (TYLENOL EXTRA STRENGTH) 500 mg tablet Take 1,000 mg by mouth every 6 hours if needed. Max acetaminophen dose: 4000mg in 24 hrs. Discontinued(Re order (E-cancel not sent)) acetaminophen (TYLENOL) 325 mg tablet Take 2 Tablets (650 mg) by mouth every 4 hours if needed. Max acetaminophen dose: 4000mg in 24 hrs. 03/10/20 24 Discontinued(Re order (E-cancel not sent)) dorzolamide-timolo L (COSOPT) 2-0.5 % ophthalmic solution Place 1 Drop into right eye once daily. 03/10/20 24 Discontinued(*M ed complete/Regime n complete/Level of care change) fluorouracil (EFUDEX) 5 % cream Apply topically to affected area(s) two times daily. 12/31/19 24 Discontinued(Ot her - add note to specify (E-cancel not sent)) ondansetron (ZOFRAN) 4 mg tablet Take 1 Tablet (4 mg) by mouth every 8 hours if needed for Nausea/Vomiting. 03/10/20 24 06/27/2 024 Discontinued(*M ed complete/Regime n complete/Level of care change) oxyCODONE (ROXICODONE) 5 mg immediate release tablet Take 5 mg by mouth every 4 hours if needed. 03/09/20 024 Discontinued(Re order (E-cancel not sent)) sennosides-docusat e (SENOKOT S) (8.6-50 mg) tablet Take 1 Tablet by mouth two times daily. 03/08/20 024 Discontinued(Re order (E-cancel not sent)) simethicone chewable (MYLANTA GAS RELIEF; GAS X) 80 mg chewable tablet Chew 80 mg by mouth 4 times daily if needed. 03/08/20 024 Discontinued(Ph armacist change per medication history (E-cancel not sent)) oxyCODONE (ROXICODONE) 5 mg immediate release tabletIndications: Pain Take 1 Tablet (5 mg) by mouth every 4 hours if needed for Pain. 20 Tablet 03/14/20 24 024 Discontinued hydroCHLOROthiazid e 12.5 mg tablet Take 12.5 mg by mouth once daily. Until 04/06 Hold for SBP <100 03/09/20 024 Discontinued(*I P Discontinued) enoxaparin (LOVENOX) 40 mg/0.4 mL injection Inject 40 mg subcutaneous once daily. 03/10/20 024 ondansetron (ZOFRAN ODT) 4 mg disintegrating tablet Take 4 mg by mouth every 8 hours if needed. 03/08/20 024 Discontinued(Re order (E-cancel not sent)) Active Problems Problem Noted Date Diagnosed Date Hyponatremia 03/22/2024 Hypertension 03/22/2024 Fracture of other parts of p oscar, initial encounter for closed fracture 03/03/2024 Gastroesophageal reflux disease 03/03/2024 Neuropathy, peripheral 03/03/2024 Other specified diseases of pancreas 03/03/2024 Arthritis, rheumatoid 10/25/2010 Overview: Overview: Arthritis, rheumatoid* Encounters Date Type Department Care Team Description 03/25/2024 Orders Only [facility] Scanner 1 scan: (1-Ord) Lee GILBERT, MULTIPLE LABS, 03/25/2024 03/25/2024 Nurse Triage [address] [address] Maxine Demarco NP Abnormal Lab Results 03/22/2024 3:55 PM CDT - 03/24/2024 1:00 PM CDT Hospital Encounter [address] [address] Nir Bishop MD [place]istan, Ian Mark, Hyponatremia (Primary Dx); Pain Discharge Disposition: Shelter Facility 03/22/2024 10:00 AM CDT Care Home [address] [address] Kristina Cooper MD Transitional Care Visit (Follow up) 03/22/2024 Orders Only [facility] Scanner 1 scan: (1-Ord) Lee GILBERT, BASIC METABOLIC PANEL, 03/22/2024 03/22/2024 Orders Only [facility] Scanner 1 scan: (1-Ord) Lee GILBERT, CBC WITH PLATELETS, 03/22/2024 03/22/2024 Travel 03/22/2024 Orders Only [address] [address] Kristina Cooper MD <No scans attached> 03/22/2024 Nurse Triage [address] [address] Maxine Demarco, FISH RECEIVER Results 03/15/2024 8:45 AM CDT Care Home [address] [address] Kristina Cooper MD Transitional Care Visit (Initial ) 03/15/2024 Nurse Triage [address] [address] Maxine Demarco NP Abnormal Lab Results 03/14/[address] [address] Maxine Demarco NP Refill Request 03/10/2024 10:30 AM CDT Care Home [place] [phone] Maxine Demarco NP Transitional Care Visit (Admit) from Last 3 Months Social History Tobacco Use Types Packs/Day Years Used Date Smoking Tobacco: Never Smokeless Tobacco: Never Comments:non smoker Alcohol Use Standard Drinks/Week Comments Yes 0 (1 standard drink = 0.6 oz pur e alcohol) Rare Social Connections Answer Date Recorded Frequency of Communication with Friends and Fami ly 0 03/22/2024 Financial Resource Strain Answer Date R ecorded Difficulty of Paying Living Expenses 3 03/22/2024 Difficulty of Paying Living Expenses Not on file 03/22/2024 Food Insecurity Answer Date Recorded Worried About Running Out of Food in the Last Ye ar 1 03/22/2024 Transportation Needs Answer Date Record ed Lack of Transportation (Medical) 1 03/22/2024 Housing Stability Answer Date Recorded Unable to Pay for Housing in the Last Year 1 03/22/2024 Sex and Gender Information Value Date Recorded Sex Assigned at Not on file Gender Identity Not on file Sexual Orientation Not on file Obstetrics History Last Filed Vital Signs Vital Sign Reading Time Taken Comments Blood Pressure 136/87 03/24/2024 8:37 AM CDT Pulse 72 03/24/2024 8:37 AM CDT Temperature 36.4 ??C (97.6 ??F) 03/24/2024 8:37 AM CD T Respiratory Rate 18 03/24/2024 8:37 AM CDT Oxygen Saturation 100% 03/24/2024 8:37 AM CDT Inhaled Oxygen Concentration - - Weight 68.6 kg (151 lb 4.8 oz) 03/24/2024 6:00 A M CDT Height 157.5 cm (5' 2) 03/22/2024 3:59 PM CDT Body Mass Index 27.67 03/22/2024 3:59 PM CDT Plan of Treatment Health Maintenance Due Date Last Done Comments Tdap 02/25/1946 Depression screening for age 12+ 1949 BMI (ht and wt on same day) for age 18+ 1955 Tetanus booster 1957 Zoster (shingles) series for age 50+ (1 of 2) 1987 DEXA/DXA scan for age 65+ 2002 Medicare Wellness for age 65+ 2002 Pneumococcal series for age 65+ (1 of 1 - PCV) 2002 COVID-19 vaccine series (2022-24 season) 2023 07/09/2022, 02/12/2022, 07/09/2021, Additional history exists Influenza for age 65+ 05/15/2024 Medical Devices Implanted Type Area Leisure Travel Agent Device Identifier Shelf Expiration Date Model / Serial / Lot Valve Barevelt 350mm [id number] [employer] - [id number] Implanted:Qty: 1 on 12/22/[address] [facility] Right: Eye [employer] 06/13/2013 [id number] / [id number] / Cornea Glycerol Half - [id number] Implanted:Qty: 1 on 12/22/[address] [facility] Right: Eye [facility] 09/19/2014 [id number]# / [id number] / Procedures Procedure Name Priority Date/Time Associated Diagnosis Comments SCAN-LABORATORY REPORT 03/25/2024 12:00 AM CDT SODIUM Timed 03/24/2024 10:51 AM CDT SODIUM Timed 03/24/2024 5:18 AM CDT PLATELET COUNT Timed 03/24/2024 5:18 AM CDT SODIUM Timed 03/23/2024 10:49 PM CDT SODIUM Timed 03/23/2024 4:48 PM CDT SODIUM Timed 03/23/2024 11:07 AM CDT POTASSIUM Early AM 03/23/2024 4:40 AM CDT CREATININE Early AM 03/23/2024 4:40 AM CDT SODIUM Timed 03/23/2024 4:40 AM CDT SODIUM Timed 03/22/2024 10:32 PM CDT HEMOGLOBIN Today 03/22/2024 6:38 PM CDT OSMOLALITY Add On 03/22/2024 6:38 PM CDT OSMOLALITY,URINE MANDO 03/22/2024 6:00 PM CDT URINALYSIS MICROSCOPIC Timed 03/22/2024 6:00 PM CDT SODIUM,RANDOM URINE Today 03/22/2024 6 :00 PM CDT UA W/ SEDIMENT EXAM REFLEXED PER CRITERIA Today 03/22/2024 6:00 PM CDT BASIC METABOLIC PANEL STAT 03/22/2024 4:49 PM CDT SCAN-LABORATORY REPORT 03/22/2024 12:00 AM CDT SCAN-LABORATORY REPORT 03/22/2024 12:00 AM CDT from Last 3 Months Results * SCAN-LABORATORY REPORT (03/25/2024 12:00 AM CDT) Only the most recent of3 resultswithin the time period is included. Scanner OTHER * (ABNORMAL) SODIUM (03/24/2024 10:51 AM CDT) Only the most recent of7 resultswithin the time period is included. SODIUM 132(L) 136 - 145 mmol/L 03/24/2024 11:05 AM CDT [facility] Blood BLOOD SPECIMEN / Unknown Venipuncture / Unknown 03/24/2024 10:51 AM CDT 03/24/2024 10:54 AM CDT Brock Harrison DO CHEMISTRY [facility] [address] [place] [address], * PLATELET COUNT (03/24/2024 5:18 AM CDT) [facility] PLATELET COUNT 229 140 - 440 thou/cu mm 03/24/2024 5:35 AM CDT [facility] MPV 8.7 6.5 - 11.0 fL 03/24/2024 5:35 AM CDT [facility] Blood BLOOD SPECIMEN / Unknown Butterfly / Unknown 03/24/2024 5:18 AM CDT 03/24/2024 5:26 AM CDT Brock Harrison DO HEMATOLOGY Performing Organization Address City/[facility]/ZIP Co de Phone Number [facility] [address] [place] [id number], * POTASSIUM (03/23/2024 4:40 AM CDT) [facility] POTASSIUM 4.0 3.5 - 5.1 mmol/L 03/23/2024 5:05 AM CDT [facility] Blood BLOOD SPECIMEN / Unknown Butterfly / Unknown 03/23/2024 4:40 AM CDT 03/23/2024 4:43 AM CDT Brock Harrison DO CHEMISTRY [facility] [address] [place] [address], [place] [phone] * (ABNORMAL) CREATININE (03/23/2024 4:40 AM CDT) [facility] eGFR 80(L) >90 mL/min/1.7 3m2 03/23/2024 5:05 AM CDT [facility] Comment:As of 2021, eG FR is calculated by the CKD-EPI creatinine equation without race adjustment. ??eGFR can be influenced by muscle mass, exercise, and diet. ??The reported eGFR is an estimation only and is only applicable if the renal function is stable. CREATININE 0.73 0.50 - 0.90 mg/dL 03/23/2024 5:05 AM CDT [facility] Blood BLOOD SPECIMEN / Unknown Butterfly / Unknown 03/23/2024 4:40 AM CDT 03/23/2024 4:43 AM CDT Brock Harrison DO CHEMISTRY Performing Organization Address City/[facility]/ZIP Co de Phone Number [facility] [address] [place] [address], * (ABNORMAL) HEMOGLOBIN (03/22/2024 6:38 PM CDT) HEMOGLOBIN 10.0(L) 12.0 - 16.0 g/dL 03/22/2024 6:42 PM CDT [facility] MCV 91 80 - 100 fL 03/22/2024 6:42 PM CDT [facility] Blood BLOOD SPECIMEN / Unknown Butterfly / Unknown 03/22/2024 6:38 PM CDT 03/22/2024 6:40 PM CDT Brock Harrison DO HEMATOLOGY [facility] [address] [place] [address], [place] [phone] * (ABNORMAL) OSMOLALITY (03/22/2024 6:38 PM CDT) OSMOLALITY 268(L) 275 - 300 mOsmol/kg 03/23/2024 3:19 PM CDT [facility] Blood BLOOD SPECIMEN / Unknown Butterfly / Unknown 03/22/2024 6:38 PM CDT 03/22/2024 6:40 PM CDT Nir Bishop MD CHEMISTRY Performing Organization Address City/[facility]/ZIP Co de Phone Number [facility] [address] [place] [address], * (ABNORMAL) URINALYSIS MICROSCOPIC (03/22/2024 6:00 PM CDT) RBC 0-2 0-2, None Seen /HPF 03/22/2024 6:35 PM CDT [facility] WBC 3-5 0-2, 3-5, None Seen /HPF 03/22/2024 6:35 PM CDT [facility] BACTERIA Rare None Seen, Rare, Few Bacteria/H PF 03/22/2024 6:35 PM CDT [facility] EPITHELIAL CELLS Few None Seen, Few Epi/HPF 03/22/2024 6:35 PM CDT [facility] RENAL EPITHELIAL CELLS Few(A) (none) 03/22/2024 6:35 PM CDT [facility] Urine URINE SPECIMEN / Unknown Non-Blood / Unknown 03/22/2024 6:00 PM CDT 03/22/2024 6:04 PM CDT Nir Bishop MD URINE Performing Organization Address City/[facility]/ZIP Co de Phone Number [facility] [address] [place] [address], [place] [phone] * SODIUM,RANDOM URINE (03/22/2024 6:00 PM CDT) SODIUM,RANDOM URINE 77 mmol/L 03/23/2024 9:00 PM CDT [facility] Comment:No Reference Range D efined. Urine URINE SPECIMEN / Unknown Non-Blood / Unknown 03/22/2024 6:00 PM CDT 03/22/2024 6:04 PM CDT Nir Bishop MD URINE [facility] [address] [place] [address], [place] * (ABNORMAL) UA W/ SEDIMENT EXAM REFLEXED PER CRITERIA (03/22/2024 6:00 PM CDT) COLOR Yellow Yellow Color 03/22/2024 6:10 PM CDT [facility] CLARITY Clear Clear Clarity 03/22/2024 6:10 PM CDT [facility] SPECIFIC GRAVITY,URINE 1.010 1.010, 1.015, 1.020, 1.025 03/22/2024 6:10 PM CDT [facility] PH,URINE 6.5 6.0, 7.0, 8.0, 5.5, 6.5, 7.5, 8.5 03/22/2024 6:10 PM CDT [facility] UROBILINOGEN,Q UALITATIVE Normal Normal EU/dl 03/22/2024 6:10 PM CDT [facility] PROTEIN, URINE Negative Negative mg/dL 03/22/2024 6:10 PM CDT [facility] GLUCOSE, URINE Negative Negative mg/dL 03/22/2024 6:10 PM CDT [facility] KETONES,URINE Negative Negative mg/dL 03/22/2024 6:10 PM CDT [facility] BILIRUBIN,URIN E Negative Negative 03/22/2024 6:10 PM CDT [facility] OCCULT BLOOD,URINE Negative Negative 03/22/2024 6:10 PM CDT [facility] NITRITE Negative Negative 03/22/2024 6:10 PM CDT [facility] LEUKOCYTE ESTERASE Trace(A) Negative 03/22/2024 6:10 PM CDT [facility] Urine URINE SPECIMEN / Unknown Non-Blood / Unknown 03/22/2024 6:00 PM CDT 03/22/2024 6:04 PM CDT Nir Bishop MD URINE Performing Organization Address City/[facility]/ZIP Co de Phone Number [facility] [address] [place] [address], * OSMOLALITY,URINE (03/22/2024 6:00 PM CDT) OSMOLALITY,URI NE 320 50 - 1,400 mOsmol/kg 03/23/2024 6:53 PM CDT [facility] Urine URINE SPECIMEN / Unknown Non-Blood / Unknown 03/22/2024 6:00 PM CDT 03/22/2024 6:04 PM CDT Brock Harrison DO [facility] [address] [place] [address], * (ABNORMAL) BASIC METABOLIC PANEL (03/22/2024 4:49 PM CDT) SODIUM 122(L) 136 - 145 mmol/L 03/22/2024 5:41 PM CDT [facility] POTASSIUM 4.5 3.5 - 5.1 mmol/L 03/22/2024 5:41 PM CDT [facility] CHLORIDE 86(L) 98 - 107 mmol/L 03/22/2024 5:41 PM CDT [facility] CO2,TOTAL 26 22 - 29 mmol/L 03/22/2024 5:41 PM CDT [facility] ANION GAP 10 5 - 18 03/22/2024 5:41 PM CDT [facility] GLUCOSE 92 70 - 99 mg/dL 03/22/2024 5:41 PM CDT [facility] CALCIUM 9.9 8.8 - 10.2 mg/dL 03/22/2024 5:41 PM CDT [facility] BUN 14 8 - 23 mg/dL 03/22/2024 5:41 PM CDT [facility] CREATININE 0.91(H) 0.50 - 0.90 mg/dL 03/22/2024 5:41 PM CDT [facility] BUN/CREAT RATIO 15 10 - 20 5:41 PM CDT [facility] eGFR 61(L) >90 mL/min/1.7 3m2 03/22/2024 5:41 PM CDT [facility] Comment:As of 2021, eG FR is calculated by the CKD-EPI creatinine equation without race adjustment. ??eGFR can be influenced by muscle mass, exercise, and diet. ??The reported eGFR is an estimation only and is only applicable if the renal function is stable. Blood BLOOD SPECIMEN / Unknown IV Start / Unknown 03/22/2024 4:49 PM CDT 03/22/2024 4:54 PM CDT Nir Bishop MD CHEMISTRY [facility] [address] [place] [address], from Last 3 Months Advance Directives * Full Code (Latest Code Status on File) Date Activated Date Inactivated Comments 03/22/2024 8:13 PM 03/24/2024 3:39 PM Question Answer Comments Code Status Discussion: Reviewed Preferences * Full Code Date Activated Date Inactivated Comments 12/22/2011 12:34 PM 12/22/2011 6:48 PM Care Teams Print And Pattern Designer Relationship Specialty Start Date End Date Sylvester Dee PCP - General 03/28/24
--- OUTSIDE RECORDS SUMMARY | 2024-04-04 10:24 | XMS_ITS | Clinical Summary ---
Author Organization [facility] Address [address] [place] [address] Care Team Providers Care Hardboard Grinder Name Role Phone Elsewhere, Pcp Primary Care Provider Unavailabl e Source Comments Patient records contain information from all sites at [facility]. For routine questions regarding patient records, call [phone] during business hours, M-F 8:00 AM - 5:00 PM Central Time. Record requests for emergency care only can be directed to [phone] at any time.[facility] Allergies Active Allergy Reactions Criticality Noted Date [...] ORAL Take 1,000 mcg by mouth daily. 10/25/19 11 Active ferrous sulfate 325 mg (65 mg iron) tablet Take 1 tablet by mouth daily. 11/02/19 14 Active MULTIVITAMIN ORAL Take 1 tablet by mouth daily. 10/25/19 11 Active fluticasone propionate (FLONASE) 50 mcg/actuation nasal spray Administer 2 sprays into each nostril daily as needed for rhinitis or allergies. 16 g 12 05/14/20 19 Active omeprazole (PriLOSEC) [address] capsule Take 1 capsule by mouth daily. 05/20/20 19 Active dorzolamide-timolo L (COSOPT) 22.3-6.8 mg/mL ophthalmic solution Administer 1 drop into the right eye daily. Active cycloSPORINE (RESTASIS) 0.05 % ophthalmic emulsion Administer 1 drop into both eyes 2 (two) times a day. Active calcium carbonate-vitamin D3 1,500 mg (600 mg calcium)-10 mcg (400 Unit) per tablet Take 1 tablet by mouth 2 (two) times a day with meals. Active colchicine (COLCRYS) 0.6 mg tablet daily as needed. 10/21/19 22 Active alendronate (FOSAMAX) 70 mg tablet TAKE 1 TABLET EVERY 7 DAYS (WEEKLY) ON AN EMPTY STOMACH, REMAIN UPRIGHT FOR AT LEAST 30 MINUTES 12 tablet 3 03/05/20 [address] tablet Take 81 mg by mouth daily. Active alendronate (FOSAMAX) 70 mg tablet TAKE 1 TABLET EVERY 7 DAYS (WEEKLY) ON AN EMPTY STOMACH REMAIN UPRIGHT FOR AT LEAST 30 MINUTES 12 tablet 3 09/10/20 23 Active fluorouraciL (EFUDEX) 5 % cream Apply topically twice daily for 46 weeks 40 g 12/31/19 24 Active fexofenadine-pseud oephedrine (MING-D) 60-120 mg per 12 hr tablet Take 1 tablet by mouth 2 (two) times a day. 180 tablet 1 02/18/20 24 Active gabapentin (Neurontin) 100 mg capsule daily as needed. 11/02/19 24 Active lidocaine (Salonpas, lidocaine,) 4 % adhesive patch,medicated Place 1 patch on the skin every 12 (twelve) hours as needed (pain) for up to 28 days. 28 patch 03/08/20 24 024 Active acetaminophen (TylenoL) 325 mg tablet Take 2 tablets (650 mg total) by mouth every 4 (four) hours as needed for pain for up to 14 days. 50 tablet 03/08/20 24 Active diclofenac sodium (Voltaren) 1 % gel Apply 4 g topically 4 (four) times a day. Apply to painful areas. Do not place over areas of broken skin 20 g 03/08/20 24 Active polyethylene glycol (Miralax) 17 gram powder packet Take 1 packet (17 g total) by mouth daily for 27 days. Dissolve each 17 g dose in 240 mLs (8 ounces) of beverage. 27 packet 03/09/20 24 Active sennosides-docusat e sodium (Senokot-S) 8.6-50 mg per tablet Take 1 tablet by mouth 2 (two) times a day for 28 days. 54 tablet 03/08/20 24 Active ondansetron ODT (Zofran-ODT) 4 mg disintegrating tablet Dissolve 1 tablet (4 mg total) in the mouth every 8 (eight) hours as needed for nausea or vomiting. 20 tablet 03/08/20 24 Active losartan (Cozaar) 25 mg tablet Take 1 tablet (25 mg total) by mouth daily for 28 days. HOLD medication until restarted by PCP 03/09/20 24 Active hydroCHLOROthiazid e 12.5 mg tablet Take 1 tablet (12.5 mg total) by mouth daily for 28 days. HOLD medication until restarted by PCP 28 tablet 03/09/20 24 Active enoxaparin (Lovenox) 40 mg/0.4 mL injection Inject 0.4 mL (40 mg total) under the skin daily for 20 days. Through 03/30/24 for DVT prophylaxis 8 mL 03/10/20 24 Active oxyCODONE (Roxicodone) 5 mg immediate release tablet Take 1 tablet (5 mg total) by mouth 3 (three) times a day as needed for pain for 7 days. 21 tablet 03/30/20 24 Active meclizine (Antivert) 25 mg tablet Take 25 mg by mouth at bedtime as needed. 03/22/20 24 Active acetaminophen (TylenoL) 500 mg tablet Take 1,000 mg by mouth every 6 (six) hours. 03/15/20 24 Active alendronate (Fosamax) 70 mg tablet Take 70 mg by mouth over 168 hr. 09/10/20 23 Active cyanocobalamin (Vitamin B-12) 1,000 mcg tablet Take 1,000 mcg by mouth daily. Active gabapentin (Neurontin) 100 mg capsule Take 100 mg by mouth at bedtime as needed. 03/10/20 24 Active losartan (Cozaar) 50 mg tablet Take 50 mg by mouth daily. 03/22/20 24 Active oxyCODONE (Roxicodone) 5 mg immediate release tablet Take 5 mg by mouth every 4 (four) hours as needed. 03/24/20 24 Active vitamins A,C,O-vzen-xdbhph (PreserVision AREDS) 7,160 Units-113 mg-100 Units per tablet Take 1 tablet by mouth daily. Active meclizine (ANTIVERT) 25 mg tablet Take 25 mg by mouth as needed. 02/01/20 21 024 Discontinued(St op Taking at Discharge) losartan (COZAAR) 25 mg tablet Take 25 mg by mouth daily. 10/17/19 22 024 Discontinued(St op Taking at Discharge) hydroCHLOROthiazid e (HYDRODIURIL) 12.5 mg tablet Take 1 tablet (12.5 mg total) by mouth every morning. 90 tablet 3 07/02/20 23 024 Discontinued(St op Taking at Discharge) simethicone 80 mg chewable tablet Chew 1 tablet (80 mg total) 4 (four) times a day as needed for flatulence (flatulence) for up to 14 days. 20 tablet 03/08/20 24 024 oxyCODONE (Roxicodone) 5 mg immediate release tabletIndications: Acute Pain Exception Take 1 tablet (5 mg total) by mouth every 4 (four) hours as needed for severe pain or score 7-10 of 10 (for breakthrough pain) for up to 14 days Indication: Acute Pain Exception. 20 tablet 03/09/20 24 024 Discontinued oxyCODONE (Roxicodone) 5 mg immediate release tabletIndications: Acute Pain Exception Take 1 tablet (5 mg total) by mouth every 4 (four) hours as needed for severe pain or score 7-10 of 10 (for breakthrough pain) for up to 14 days Indication: Acute Pain Exception. 20 tablet 03/09/20 24 024 Discontinued oxyCODONE (Roxicodone) 5 mg immediate release tabletIndications: Acute Pain Exception Take 1 tablet (5 mg total) by mouth every 4 (four) hours as needed for severe pain or score 7-10 of 10 (for breakthrough pain) for up to 14 days Indication: Acute Pain Exception. 20 tablet 03/09/20 24 024 Discontinued oxyCODONE (Roxicodone) 5 mg immediate release tabletIndications: Acute Pain Exception Take 1 tablet (5 mg total) by mouth every 4 (four) hours as needed for severe pain or score 7-10 of 10 (for breakthrough pain) for up to 14 days Indication: Acute Pain Exception. 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 03/10/2024 Clinical Communication Department of Orthopedic Surgery in [address] [phone] Nenita Elkins MPAS, P.A.-C. Lovenox Injections 03/05/2024 8:15 AM CDT Ancillary Procedure Department of Nursing 03/05/2024 8:10 AM CDT Ancillary Procedure Department of Nursing 03/03/2024 Orders Only Department of Orthopedic Surgery in [address] [phone] Nenita Elkins MPAS, P.A.-C. Fracture Pelvis Other Parts Closed Initial (HCC) (Primary Dx) 03/02/2024 10:47 PM CDT - 03/09/2024 2:56 PM CDT Hospital Encounter [facility], [facility], [facility], Fifth Floor [address] [place] [address] Adebayo Shepard M.D., M.P.H. Stacey Boone M.D. Sree Zaidi M.D. Aries Sinha M.D. History Of Falling (Primary Dx); Fracture Pelvis Other Parts Closed Initial (HCC); Difficulty Walking Orthopedic Cause [R26.2]; Decline Functional Status [R53.81] Discharge Disposition: [facility] from [facility] 3 Months Immunizations Name Administration Dates Next Due HZV (ZOSTAVAX) 10/02/2010 HepA Adult 07/30/2006,12/28/2001 HepB (discontinued) adolesce nt/high risk infant 06/29/2006,01/31/2002,12/28/2001 Hib (PRP-T) (ACTHIB, HIBERIX) 02/01/2007 Influenza (IM) Preservative Free 009,08/22/2009,08/21/2009,08/20,08/20/2009 Influenza, Unspecified 09/24/2016,2016,07/12/2015,07/10,07/26/2014,07/05/2013,07/04/2013 ,07/01/2013,08/02/2012,07/29/2012,07/15,09/25/2011,09/25/2011, 0 MCV4 (Menactra)(Discontinued) 02/01/2007 MPSV4 02/01/2007 PCV13 07/10/2015 PPSV23 02/01/2007,02/01/2007 SARS-COV-2 (COVID-19) - MODERNA(Discontinued) 02/12/2022,07/09/2021 Td [...] drink = 0.6 oz pur e alcohol) [facility] Utilities Answer Date Recorded In the past 12 months has e [employer], gas, oil, or water [employer] threatened to shut off services in your home? No 03/03/2024 Humiliation, Afraid, Rape, and Kick questionnair e Answer Date Recorded Within the last year, have y ou been afraid of your partner or ex-partner? No 03/03/2024 Within the last year, have y ou been humiliated or emotionally abused in other ways by your partner or ex-partner? No Within the last year, have y ou been kicked, hit, slapped, or otherwise physically hurt by your partner or ex-partner? No 03/03/2024 Within the last year, have y ou been raped or forced to have any kind of sexual activity by your partner or ex-partner? No 03/03/2024 Social Connection and Isolat ion Panel [NHANES] Answer Date Recorded In a typical week, how many times do you talk on the phone with family, friends, or neighbors? More than three times a week 09/27/2022 How often do you get togethe r with friends or relatives? Twice a week 09/27/2022 How often do you attend chur ch or hinduism services? More than 4 times per year 09/27/2022 Do you belong to any clubs o r organizations such as rastafari groups, unions, fraternal or athletic groups, or [...] and heating? Not hard at all 09/27/2022 [facility] Occupat ional [facility] - Occupational Stress [...] the money to buy more. Never true 03/03/20 24 Within the past 12 months, t he food you bought just didn't last and you didn't have money to get more. Never true 03/03/2024 PRAPARE - Transportation Answer Date Re corded In the past 12 months, has l ack of transportation kept you from medical appointments or from getting medications? No 02/13 In the past 12 months, has l ack of transportation kept you from meetings, work, or from getting things needed for daily living? No 03/03/2024 Nutrition Answer Date Recorded On average, how many serving s of fruits and vegetables do you eat per day (serving size is equal to 1 cup or approximately the size of a tennis ball)? 0-1 09/27/2022 Dental Answer Date Recorded Dental: Regular Dentist Yes 09/27/19 23 Employment Answer Date Recorded Employment status Retired 09/27/2022 Housing Stability Answer Date Recorded What is your living situation today? I [facility] [address] [facility] [place] [address] [facility] live 03/03/2024 Education Answer Date Recorded What is the highest level of school you have completed or the highest degree you have received? 12th grade 09/27/2022 Sex and Gender Information Value Date Recorded Sex Assigned at Not on file Gender Identity Not on file Sexual Orientation Not on file Last Filed Vital Signs Vital Sign Reading Time Taken Comments Blood Pressure 140/51 03/09/2024 9:00 AM CDT Pulse 78 03/09/2024 9:00 AM CDT Temperature 36.5 ??C (97.7 ??F) 03/09/2024 9:00 AM CD T Respiratory Rate 19 03/09/2024 9:00 AM CDT Oxygen Saturation 98% 03/09/2024 9:00 AM CDT Inhaled Oxygen Concentration - - Weight 72.1 kg (158 lb 15.2 oz) 024 10:12 AM CDT Height 167.6 cm (5' 6) 03/03/2024 3:30 PM CDT Body Mass Index 25.66 03/03/2024 3:30 PM CDT Plan of Treatment Upcoming Encounters Date Type Department Care Team (Latest Contact Info) Description 04/04/2024 2:30 PM CDT Comprehensive Visit Department of Rehabilitation Services in [address] [phone] Rashaun Garcia, P.T. [address] [place] [phone] 04/05/2024 10:30 AM CDT Appointment Department of Radiology, [facility], in [address] [phone] Nenita Elkins, URIEL, P.A.-C. [address] [place] [phone] 04/05/2024 11:00 AM CDT Comprehensive Visit Division of Endocrinology in [address] [phone] TwoheyNenita MPAS, P.A.-C. [address] [place] [phone] 04/05/2024 11:00 AM CDT Office Visit Department of Orthopedic Surgery in [place], [place] [address] [place] [phone] Nenita Elkins MPAS, P.A.-C. [address] [place] [phone] 04/07/2024 2:30 PM CDT Clinical Support Department of Rehabilitation Services in [address] [phone] Yobany Bateman APRN, Angy.N.Igor, D.N.P. [address] [place] [phone] Rashaun Garcia, P.T. [address] [place] [phone] 04/08/2024 10:15 AM CDT Comprehensive Visit Department of Rehabilitation Services in [address] [phone] Clinton De Anda, P.T. [address] [place] [phone] 04/11/2024 2:30 PM CDT Clinical Support Department of Rehabilitation Services in [address] [phone] Yobany Bateman APRN, C.N.PDann, D.N.P. [address] [place] [phone] Rashaun Garcia, P.T. [address] [place] [phone] 04/14/2024 10:30 AM CDT Clinical Support Department of Rehabilitation Services in [address] [phone] Yobany Bateman APRN, C.N.P., D.N.P. [address] [place] [phone] Rashaun Garcia, P.T. [address] [place] [phone] 04/18/2024 10:30 AM CDT Clinical Support Department of Rehabilitation Services in [address] [phone] Yobany Bateman APRN, Angy.N.P., D.N.P. [address] [place] [phone] Rashaun Garcia, P.T. [address] [place] [phone] 04/21/2024 10:30 AM CDT Clinical Support Department of Rehabilitation Services in [address] [phone] Yobany Bateman APRN, C.N.P., D.N.P. [address] [place] [phone] Rashaun Garcia, P.T. [address] [place] [phone] Health Maintenance Due Date Last Done Comments Zoster Vaccines (2 of 3) 11/27/2010 10/02/2010 Depression Screening (Annual PHQ-2) 09/14/2023 COVID-19 Vaccine (2022-2 4 season) 2023 07/14/2023, 07/09/2022, 02/12/2022, Additional history exists Influenza Vaccine (#1) 2024 , 06/11/2023, 07/10/2022, Additional history exists Creatinine Level (Kidney Fun ction Test) 03/23/2025 03/23/2024, 03/22/2024, 03/07/2024, Additional history exists Potassium Level 03/23/2025 03/23/2024, 07/0 05/2024, 03/07/2024, Additional history exists Sodium Level 03/24/2025 03/24/2024, 07/1 09/2023, 03/23/2024, Additional history exists DTaP,Tdap,and Td Vaccines (4 - Td or Tdap) 02/16/2031 02/16/2021, 06/17/2011, 11/04/2010, Additional history exists Hepatitis A Vaccines Completed 07/30/2006, 12/29/19 Pneumococcal vaccine (65+ years) Completed 07/10/2015, 02/01/2007, 02/01/2007 Fall Risk Screen (Annual) Completed 03/09/2024 Medical Devices Implanted Type Area Fund Accounting Manager Device Identifier Shelf Expiration Date Model / Serial / Lot Ocular Lens-02/26/2007 Implanted:2006 (Quantity not on file) Ocular Lens Left: Eye Conversions - Default Historical Implant Device Implanted:2014 (Quantity not on file) Ocular Lens Description:Device Status Te xt - OculrLens. Procedures Procedure Name Priority Date/Time Associated Diagnosis Comments BASIC METABOLIC PANEL, S/P Routine 03/07/2024 9:21 PM CDT CBC WITH DIFFERENTIAL, B Routine 03/07/2024 9:21 PM CDT BASIC METABOLIC PANEL, S/P Routine 03/06/2024 8:39 PM CDT CBC WITH DIFFERENTIAL, B Routine 03/06/2024 8:39 PM CDT DX ABDOMEN PORTABLE ANTERIOR POSTERIOR 1 VIEW RAD - Timed (for specific dates/times) 03/06/2024 7:57 AM CDT CBC WITHOUT DIFFERENTIAL, B Timed 03/06/2024 7:25 AM CDT BASIC METABOLIC PANEL, S/P Timed 03/06/2024 7:25 AM CDT ECG Routine 03/05/2024 11:54 PM CDT BASIC METABOLIC PANEL, S/P STAT 03/05/2024 11:49 PM CDT CBC WITHOUT DIFFERENTIAL, B STAT 03/05/2024 11:49 PM CDT GLUCOSE POCT, B Routine 03/05/2024 11:44 PM CDT DX ABDOMEN PORTABLE ANTERIOR POSTERIOR 1 VIEW RAD - Semiurgent (Fast; most ED patients; some inpatients) 03/05/2024 8:42 PM CDT BASIC METABOLIC PANEL, S/P Routine 03/05/2024 10:36 AM CDT CBC WITHOUT DIFFERENTIAL, B Routine 03/05/2024 10:36 AM CDT NURSING IMAGE EXAM Routine 03/05/2024 8: 12 AM CDT NURSING IMAGE EXAM Routine 03/05/2024 8: 09 AM CDT HEMOGLOBIN, B Timed 03/04/2024 6:38 AM CDT HEMOGLOBIN, B Timed 03/04/2024 2:02 AM CDT VITAMIN B12 ASSAY, S Routine 03/03/2024 8:16 PM CDT BASIC METABOLIC PANEL, S/P Routine 03/03/2024 8:16 PM CDT CBC WITHOUT DIFFERENTIAL, B Routine 03/03/2024 8:16 PM CDT BASIC METABOLIC PANEL, S/P Timed 03/03/2024 8:16 PM CDT DX PELVIS 3+ VIEWS RAD - Routine (most inpatients and all outpatients) 03/03/2024 5:02 PM CDT CBC WITHOUT DIFFERENTIAL, B Timed 03/03/2024 3:10 PM CDT IR PELVIC ARTERY EMBOLIZATION RAD - Routine (most inpatients and all outpatients) 03/03/2024 7:51 AM CDT CBC WITH DIFFERENTIAL, B STAT 03/03/2024 5:20 AM CDT VBG & LYTES CG8+, POCT, B STAT 03/03/2024 3:[address] THORACIC SPINE BY RECONSTRUCTION RAD - Semiurgent (Fast; most ED patients; some inpatients) 03/03/2024 2:[address] ABDOMEN PELVIS WITH IV CONTRAST RAD - Semiurgent (Fast; most ED patients; some inpatients) 03/03/2024 2:[address] CHEST WITH IV CONTRAST RAD - Semiurgent (Fast; most ED patients; some inpatients) 03/03/2024 2:[address] CERVICAL SPINE WITHOUT IV CONTRAST RAD - Semiurgent (Fast; most ED patients; some inpatients) 03/03/2024 2:[address] HEAD WITHOUT IV CONTRAST RAD - Semiurgent (Fast; most ED patients; some inpatients) 03/03/2024 2:16 AM CDT DX ELBOW RIGHT 3+ VIEWS RAD - Semiurgent (Fast; most ED patients; some inpatients) 03/03/2024 12:32 AM CDT DX HIP AND PELVIS RIGHT 2-3 VIEWS RAD - Semiurgent (Fast; most ED patients; some inpatients) 03/03/2024 12:[address] PELVIS MUSCULOSKELETAL WITHOUT IV CONTRAST RAD - Semiurgent (Fast; most ED patients; some inpatients) 03/03/2024 12:[address] LUMBAR SPINE WITHOUT IV CONTRAST RAD - Semiurgent (Fast; most ED patients; some inpatients) 03/03/2024 12:23 AM CDT BASIC METABOLIC PANEL, S/P STAT 03/02/2024 11:55 PM CDT CBC WITH DIFFERENTIAL, B STAT 03/02/2024 11:55 PM CDT TYPE AND SCREEN STAT 03/02/2024 11:50 PM CDT ECG STAT 03/02/2024 11:45 PM CDT from Last 3 Months Results * (ABNORMAL) CBC with Differential, Blood (03/07/2024 9:21 PM CDT) Only the most recent of4 resultswithin the time period is included. Hemoglobin 8.6(L) 11.6 - 15.0 g/dL 03/07/2024 9:57 PM CDT DTL Hematocrit 25.1(L) 35.5 - 44.9 % 03/07/2024 9:57 PM CDT DTL Erythrocytes 2.75(L) 3.92 - 5.13 x10(12)/L 03/07/2024 9:57 PM CDT DTL MCV 91.3 78.2 - 97.9 fL 03/07/2024 9:57 PM CDT DTL RBC Distrib Width 13.2 12.2 - 16.1 % 03/07/2024 9:57 PM CDT DTL Platelet Count 169 157 - 371 x10(9)/L 03/07/2024 9:57 PM CDT DTL Leukocytes 6.1 3.4 - 9.6 x10(9)/L 03/07/2024 9:57 PM CDT DTL Neutrophils 3.85 1.56 - 6.45 x10(9)/L 03/07/2024 9:57 PM CDT DHPM Lymphocytes 1.33 0.95 - 3.07 x10(9)/L 03/07/2024 9:57 PM CDT DTL Monocytes 0.75 0.26 - 0.81 x10(9)/L 03/07/2024 9:57 PM CDT DTL Eosinophils 0.15 0.03 - 0.48 x10(9)/L 03/07/2024 9:57 PM CDT DTL Basophils 0.03 0.01 - 0.08 x10(9)/L 03/07/2024 9:57 PM CDT DTL Blood (Blood, Venous) 03/07/2024 9:21 PM CDT 03/07/2024 9:51 PM CDT Renée Brannno M.D. LAB BLOOD ADD-ON [facility] [address] [place] [address], [facility] DTL [facility] [address] [place], [place] [phone] [place] [address] [address] [place] [address] * (ABNORMAL) Basic Metabolic Panel (03/07/2024 9:21 PM CDT) Only the most recent of8 resultswithin the time period is included. [facility] Potassium, S 4.7 3.6 - 5.2 mmol/L 03/07/2024 10:17 PM CDT DTL Sodium, S 132(L) 135 - 145 mmol/L 03/07/2024 10:17 PM CDT DTL Chloride, S 94(L) 98 - 107 mmol/L 03/07/2024 10:17 PM CDT DTL Bicarbonate, S 27 22 - 29 mmol/L 03/07/2024 10:17 PM CDT DTL Anion Gap 11 7 - 15 03/07/2024 10:17 PM CDT DTL BUN (Blood Urea Nitrogen), S 37(H) 6 - 21 mg/dL 03/07/2024 10:17 PM CDT DTL Creatinine 1.15(H) 0.59 - 1.04 mg/dL 03/07/2024 10:17 PM CDT DTL Estimated GFR (eGFR) 46(L) >=60 mL/min/BSA 03/07/2024 10:17 PM CDT DTL Comment: Estimated GFR calculated using the 2020 CKD_EPI creatinine equation. Calcium, Total, S 9.2 8.8 - 10.2 mg/dL 03/07/2024 10:17 PM CDT DTL Glucose, S 132 70 - 140 mg/dL 03/07/2024 10:17 PM CDT DTL Blood (Blood, Venous) 03/07/2024 9:21 PM CDT 03/07/2024 10:03 PM CDT Renée Brannon M.D. LAB BLOOD ADD-ON [facility] [address] [place] [address], [facility] [address] [place] [address] * DX Abdomen Portable Anterior Posterior 1 View (03/06/2024 7:57 AM CDT) Only the most recent of2 resultswithin the time period is included. Anatomical Region Laterality Modality Abdomen, Abdominal RST LOS, Abdominal ARZ LOS, Abdominal FLA LOS N/A Digital Radiography Impressions 03/06/2024 8:06 AM CDT Mild colonic stool burden, decreased since 03/05/2024. Nonobstructive bowel gas pattern. Redemonstrated acute right pelvic fractures. Left breast calcification. Narrative 03/06/2024 8:06 AM CDT EXAM: ??DX ABDOMEN PORTABLE ANTERIOR POSTERIOR 1 VIEW Procedure Note Alfonso Ariza M.D. - 03/06/2024 EXAM: DX ABDOMEN PORTABLE ANTERIOR POSTERIOR 1 VIEW IMPRESSION: Mild colonic stool burden, decreased since 03/05/2024. Nonobstructive bowelgas pattern. Redemonstrated acute right pelvic fractures. Left breastcalcification. Melisa Erwin M.D. IMG DIAGNOSTIC IMAGI NG PROCEDURES * (ABNORMAL) CBC without Differential (03/06/2024 7:25 AM CDT) Only the most recent of5 resultswithin the time period is included. Hemoglobin 9.4(L) 11.6 - 15.0 g/dL 03/06/2024 7:52 AM CDT DTL Hematocrit 28.1(L) 35.5 - 44.9 % 03/06/2024 7:52 AM CDT DTL Erythrocytes 3.13(L) 3.92 - 5.13 x10(12)/L 03/06/2024 7:52 AM CDT DTL MCV 89.8 78.2 - 97.9 fL 03/06/2024 7:52 AM CDT DTL RBC Distrib Width 12.9 12.2 - 16.1 % 03/06/2024 7:52 AM CDT DTL Platelet Count 157 157 - 371 x10(9)/L 03/06/2024 7:52 AM CDT DTL Leukocytes 6.7 3.4 - 9.6 x10(9)/L 03/06/2024 7:52 AM CDT DTL Blood (Blood, Venous) 03/06/2024 7:25 AM CDT 03/06/2024 7:42 AM CDT Melisa Erwin M.D. LAB BLOOD ADD-ON [facility] [address] [place] [address], [facility] [address] [place] [address] * ECG 12 Lead (03/05/2024 11:54 PM CDT) Only the most recent of2 resultswithin the time period is included. Ventricular Rate ECG/Min 73 BPM MUSE CO Interval 168 ms MUSE QRSD Interval 86 ms MUSE QT Interval 376 ms MUSE QTC Interval 414 ms MUSE P [place] 63 degrees MUSE R [place] 40 degrees MUSE T Wave [place] 60 degrees MUSE 03/05/2024 11:5 4 PM CDT 03/05/2024 11:57 PM CDT Impressions MUSE - 03/05/2024 11:57 PM CDT Normal sinus rhythm Nonspecific ST abnormality When compared with ECG of 02-Mar-2024 23:45, No significant change was found Reviewed by LETICIA Amador Narrative Procedure Note Douglas Julian M.D. - 03/05/2024 IMPRESSION: Normal sinus rhythm Nonspecific ST abnormality When compared with ECG of 02-Mar-2024 23:45, No significant change was found Reviewed by LETICIA Amador Marychuy Estes M.D. ECG ORDERABLES Performing Organization Address City/[facility]/ZIP Co de Phone Number MUSE NA * (ABNORMAL) Glucose, POCT (03/05/2024 11:44 PM CDT) [facility] Glucose, POCT, B 143(H) 70 - 140 mg/dL 03/05/2024 11:53 PM CDT PCLX Site Capillary 03/05/2024 11:53 PM CDT PCLX Last Intake > 4 hours 03/05/2024 11:53 PM CDT PCLX Blood 03/05/2024 11:4 4 PM CDT 03/05/2024 11:53 PM CDT Unknown Provider LAB POCT ORDERABLES- MANUAL Performing Organization Address City/[facility]/ZIP Co de Phone Number POC [facility] [address] [place] [address], [facility] PCLX [facility] POC [address] [place] [address] * Leg, right-Nursing Image Exam (03/05/2024 8:12 AM CDT) Only the most recent of2 resultswithin the time period is included. 03/05/2024 8:09 AM CDT Narrative IIMS - 03/05/2024 8:12 AM CDT This order has been created and auto-finalized to support the import of images acquired without order. The clinical documentation to support these images can be found on the encounter that produced images. Provider Not In System IMG NON RAD IMAGI NG PROCEDURES Performing Organization Address [facility] Co de Phone Number IIMS NA * (ABNORMAL) Hemoglobin (03/04/2024 6:38 AM CDT) Only the most recent of2 resultswithin the time period is included. Pathologist [facility] Hemoglobin 10.4(L) 11.6 - 15.0 g/dL 03/04/2024 7:14 AM CDT DTL Blood (Blood, Venous) 03/04/2024 6:38 AM CDT 03/04/2024 7:01 AM CDT Renée Brannon M.D. LAB BLOOD ADD-ON Performing Organization Address [facility] de Phone Number [facility] [address] [place] [address] * (ABNORMAL) Vitamin B12 Assay (03/03/2024 8:16 PM CDT) [facility] Vitamin B12 Assay, S 1299(H) 180 - 914 ng/L 03/04/2024 7:32 AM CDT DTL Comment: ----ADDITIONAL INFORMATION---- In patients being evaluated for vitamin B12 deficiency who have intrinsic factor blocking antibodies (IFBA), false elevations of B12 may occur due to IFBA interference thus potentially obscuring a physiological deficiency of B12. If observed B12 concentrations are discordant with clinical presentation, measurement of methylmalonic acid (MMA) should be considered. Blood (Blood, Venous) 03/03/2024 8:16 PM CDT 03/03/2024 9:14 PM CDT Juan Mcpherson Jr., SODA MAKER, C.N.P., M.S.N . LAB BLOOD ADD-ON Performing Organization Address [facility] Co de Phone Number [facility] [address] [place] [address], [facility] [address] [place] [address] * DX Pelvis 3+ Views (03/03/2024 5:02 PM CDT) Anatomical Region Laterality Modality Pelvis, Musculoskeletal RST LOS, Musculoskeletal ARZ LOS, Muskuloskeletal FLA LOS N/A Digital Radiography Impressions 03/03/2024 6:07 PM CDT Redemonstrated acute, comminuted, displaced right superior pubic ramus fracture with extension through the pubic body. Acute, comminuted right inferior pubic ramus fracture. Right sacral alar fracture is better visualized on same day CT pelvis 03/03/2024. Degenerative changes lower lumbar spine, hips, and SI joints. Excreted urinary contrast. Urinary catheter. Narrative 03/03/2024 6:07 PM CDT EXAM: ??DX PELVIS 3+ VIEWS Procedure Note Jose Melendrez M.D., Ph.D. - 03/03/2024 EXAM: DX PELVIS 3+ VIEWS IMPRESSION: Redemonstrated acute, comminuted, displaced right superior pubic ramusfracture with extension through the pubic body. Acute, comminuted rightinferior pubic ramus fracture. Right sacral alar fracture is bettervisualized on same day CT pelvis 03/03/2024. Degenerative changes lower lumbar spine, hips, and SIjoints. Excreted urinary contrast. Urinary catheter. Nenita TREVINO, P.A.-C. IMG DIAGN OSTIC IMAGING PROCEDURES * IR Pelvic Artery Embolization (03/03/2024 7:51 AM CDT) Anatomical Region Laterality Modality Pelvis, Vascular Interventio nal RST LOS, Vascular Interventional ARZ LOS, Vascular Interventional FLA LOS N/A X-Ray Angiography Impressions 03/03/2024 9:24 AM CDT Multifocal sites of active arterial extravasation arising from the replaced left obturator, right obturator, and right medial circumflex femoral arteries. All sites treated with Gelfoam embolization. EP Narrative 03/03/2024 9:24 AM CDT EXAM: IR PELVIC ARTERY EMBOLIZATION CLINICAL HISTORY: Fall with traumatic pelvic fracture and active extravasation on trauma CT. Request for emergent embolization. TECHNIQUE: The patient was placed supine on the fluoroscopy table and the right groin was prepped and draped in standard standard sterile fashion. 1% lidocaine was used for local anesthesia. Under ultrasound guidance, the right femoral artery was accessed with a micropuncture needle after patency was demonstrated. A permanent image was created and stored. Using Seldinger technique, a 5-Georgian vascular sheath was placed. A Flush catheter was advanced immediately cranial to the aortic bifurcation and a pelvic arteriogram was performed demonstrating multifocal sites of active extravasation in the region of the right superior and inferior pubic rami fractures. A catheter was advanced into the left external iliac artery and a dedicated arteriogram was performed demonstrating active extravasation from a replaced left obturator artery arising from the left inferior epigastric artery. The left inferior epigastric artery was selectively cannulated and a dedicated selective arteriogram was performed confirming the focus of active arterial extravasation. A microcatheter was advanced into the replaced left obturator artery and a dedicated arteriogram was performed confirming satisfactory position for embolization. Embolization was performed with Gelfoam until stasis was achieved. Completion proximal arteriogram demonstrated satisfactory embolization with cessation of the active extravasation. The catheter was then advanced into the left internal iliac artery and a dedicated arteriogram was performed and demonstrated no arterial abnormality or perfusion to the region of concern. The catheter was then positioned in the right internal iliac artery and a dedicated arteriogram was performed demonstrating multifocal sites of slow arterial oozing from the right obturator artery. The catheter was advanced into the right obturator artery and a dedicated arteriogram was performed demonstrating the areas of arterial extravasation. A microcatheter was advanced into the proximal aspect of the right obturator artery and position was confirmed with a dedicated arteriogram. Gelfoam embolization was performed until stasis was achieved. Completion arteriogram demonstrated satisfactory embolization with no further extravasation. The catheter was then positioned in the right inferior epigastric artery and a dedicated arteriogram was performed demonstrating no active arterial extravasation. A right external iliac arteriogram was performed demonstrating a small area of arterial bleeding arising from a small branch of the right medial circumflex femoral artery. A catheter was positioned in the right medial circumflex femoral artery and a dedicated arteriogram was performed confirming the site of extravasation. A microcatheter was selectively advanced into the second-order branch and a dedicated arteriogram was performed. Embolization was performed with Gelfoam until stasis was achieved. A dedicated arteriogram demonstrated satisfactory position and no further bleeding. I elected to stop at this point. Catheter and right groin sheath removed. Hemostasis obtained with an Angio-Seal device. No immediate complication. PREPROCEDURE: Patient seen, evaluated, history reviewed, and approved for sedation. Airway, heart, and lung exam satisfactory for sedation. Discussed risks, benefits, alternatives for procedure, and/or sedation. The roles and responsibilities of care team members, residents, and fellows were discussed. Patient understands information and questions answered. Informed consent obtained from the patient. Immediately prior to starting the procedure, in the presence of the assisting personnel, a procedural pause was conducted to verify correct patient identity and verification of procedure to be performed, and as applicable, correct side and site, correct patient position, availability of implants, special equipment, or special requirements, and all image and specimen identification data. INTRAPROCEDURE: Moderate sedation was administered by sedation nurse under my supervision. The patient was continuously monitored with real-time oxygen saturation, heart rate, ECG rhythm strip, and blood pressure throughout administration of the sedation and performance of the procedure. The total intraprocedural sedation time was 83 minutes. Maggi Escalante M.D., M.S. [facility] IR PRO CEDURES * (ABNORMAL) Venous Blood Gas and Electrolytes CG8+, POCT (03/03/2024 3:12 AM CDT) Sample Site, POCT Venstick 03/03/2024 3:28 AM CDT PCLX Comment: ----ADDITIONAL INFORMATION---- Performed at the Point of Care pH, Venous, POCT, B 7.36 7.32 - 7.43 03/03/2024 3:28 AM CDT PCSM Comment: ----ADDITIONAL INFORMATION---- Performed at the Point of Care pCO2, Venous, POCT, B 48 41 - 51 mm Hg 03/03/2024 3:28 AM CDT PCSM Comment: ----ADDITIONAL INFORMATION---- Performed at the Point of Care pO2, Venous, POCT, B 26 Not Applicable mm Hg 03/03/2024 3:28 AM CDT PCSM Comment: ----ADDITIONAL INFORMATION---- Performed at the Point of Care Base Excess, Venous, POCT, B 2 Not Applicable mmol/L 03/03/2024 3:28 AM CDT PCSM Comment: ----ADDITIONAL INFORMATION---- Performed at the Point of Care HCO3, Venous, POCT, B 27 Not Applicable mmol/L 03/03/2024 3:28 AM CDT PCSM Comment: ----ADDITIONAL INFORMATION---- Performed at the Point of Care Sodium, POCT, B 133(L) 135 - 145 mmol/L 03/03/2024 3:28 AM CDT PCLX Comment: ----ADDITIONAL INFORMATION---- Performed at the Point of Care Potassium, POCT, B 4.4 3.6 - 5.2 mmol/L 03/03/2024 3:28 AM CDT PCLX Comment: ----ADDITIONAL INFORMATION---- Performed at the Point of Care Calcium, Ionized, POCT, B 5.10 4.65 - 5.30 mg/dL 03/03/2024 3:28 AM CDT PCLX Comment: ----ADDITIONAL INFORMATION---- Performed at the Point of Care Glucose, POCT, B 112 70 - 140 mg/dL 03/03/2024 3:28 AM CDT PCLX Comment: ----ADDITIONAL INFORMATION---- Performed at the Point of Care Hematocrit, POCT, B 35.0(L) 35.5 - 44.9 % 03/03/2024 3:28 AM CDT PCLX Comment: ----ADDITIONAL INFORMATION---- Performed at the Point of Care Blood (Blood, Venous) 03/03/2024 3:12 AM CDT 03/03/2024 3:12 AM CDT Cam Luna M.D. LAB POCT ORDERABLES - DEVICE POC [facility] [address] [place] [address], [place] PCLX [facility] POC [address] [place] [address] PCSM [facility] POC [address] [place] [address] * CT Thoracic Spine by Reconstruction (03/03/2024 2:16 AM CDT) Anatomical Region Laterality Modality Thoracic Spine, Neuroradiolo gy RST LOS, Neuroradiology ARTony GALLEGO, Neuroradiology FLA LOS N/A Computed Tomography, Compute d Tomography Impressions 03/03/2024 6:19 AM CDT No acute fracture or traumatic malalignment of the thoracic spine. Narrative 03/03/2024 6:19 AM CDT EXAM: CT THORACIC SPINE BY RECONSTRUCTION COMPARISON: None FINDINGS: No acute fracture or traumatic malalignment of the thoracic spine. Mild chronic depression of the superior endplate of T2. Mild scattered thoracic spondylosis. No high-grade neural foraminal or spinal canal narrowing. Please see separate CT chest, abdomen, and pelvis report for nonspine findings. Procedure Note Mando Marquez M.D. - 03/03/2024 EXAM: CT THORACIC SPINE BY RECONSTRUCTION COMPARISON: None FINDINGS: No acute fracture or traumatic malalignment of the thoracic spine. Mild chronic depression of the superior endplate of T2. Mild scatteredthoracic spondylosis. No high-grade neural foraminal or spinal canalnarrowing. Please see separate CT chest, abdomen, and pelvis report for nonspinefindings. IMPRESSION: No acute fracture or traumatic malalignment of the thoracic spine. Cam BREAUXG CT PROCEDURES * CT Abdomen Pelvis with IV Contrast (03/03/2024 2:16 AM CDT) Anatomical Region Laterality Modality Abdomen, Pelvis, Abdominal R ST LOS, Abdominal ARZ LOS, Abdominal FLA LOS N/A Computed Tomograp hy, Computed Tomography 03/03/2024 2:12 AM CDT Impressions 03/03/2024 5:03 AM CDT 1. ??Acute right pelvic fractures with adjacent hematoma and evidence of active bleeding into the space of Retzius. 2. ??Intramuscular hematomas involving the right obturator externus and internus without evidence of active extravasation. 3. 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 Narrative 03/03/2024 5:03 AM CDT REVISED REPORT: EXAM: CT CHEST WITH IV CONTRAST, CT ABDOMEN PELVIS WITH IV CONTRAST COMPARISON: CT chest 09/05/2013, CT abdomen pelvis 04/14/2019, CT pelvis 03/02/2024 FINDINGS: CT CHEST: No acute traumatic findings in the thorax. Old rib fractures. Lungs are clear without pleural effusion or consolidation. Bibasilar atelectasis or scarring. No significant pulmonary nodules. Mosaic attenuation likely secondary to air trapping. Left lower lobe calcified granuloma. No thoracic lymphadenopathy by size criteria. Cardiac size is normal without pericardial effusion. No acute vascular abnormality. Moderate esophageal hiatal hernia. CT ABDOMEN/PELVIS: Redemonstrated acute comminuted and displaced right superior, inferior, and pubic body fractures. There is adjacent contrast blush which changes on delayed imaging consistent with active bleed (series 3, image 188; series 7, image 91) into the space of Retzius. Muscular hematomas involving the obturator internus and externus without evidence of active extravasation. Acute fracture of the right anterior sacral ala (). The SI joints are bilaterally symmetric. Hepatic cyst. Cholelithiasis. 10 mm hypervascular lesion in the pancreatic head (), unchanged since CT 02/03/2007. Pancreatic atrophy. Normal spleen, adrenal glands. Bilateral renal cysts. Moderately distended urinary bladder. Colonic diverticulosis without evidence of diverticulitis. Normal caliber bowel without evidence of obstruction. Normal appendix. No abdominopelvic lymphadenopathy by size criteria. Please see separate CT thoracic and lumbar spine reports for spinal findings. Findings were discussed with See Mcfarland M.D. (Pager [phone]) on 03/03/2024 2:19 AM Procedure Note Alfonso Ariza M.D. - 03/03/2024 REVISED REPORT: EXAM: CT CHEST WITH IV CONTRAST, CT ABDOMEN PELVIS WITH IV CONTRAST COMPARISON: CT chest 09/05/2013, CT abdomen pelvis 04/14/2019, CT pelvis03/02/2024 FINDINGS: CT CHEST: No acute traumatic findings in the thorax. Old rib fractures. Lungs are clear without pleural effusion or consolidation. Bibasilaratelectasis or scarring. No significant pulmonary nodules. Mosaicattenuation likely secondary to air trapping. Left lower lobe calcifiedgranuloma. No thoracic lymphadenopathy by size criteria. Cardiac size is normal without pericardial effusion. No acutevascular abnormality. Moderate esophageal hiatal hernia. CT ABDOMEN/PELVIS: Redemonstrated acute comminuted and displaced right superior, inferior,and pubic body fractures. There is adjacent contrast blush which changeson delayed imaging consistent with active bleed (series 3, image 188;series 7, image 91) into the space of Retzius. Muscular hematomas involving the obturator internus and externuswithout evidence of active extravasation. Acute fracture of the rightanterior sacral ala (/). The SI joints are bilaterally symmetric. Hepatic cyst. Cholelithiasis. 10 mm hypervascular lesion in the pancreatichead (3/274), unchanged since CT 02/03/2007. Pancreatic atrophy. Normalspleen, adrenal glands. Bilateral renal cysts. Moderately distendedurinary bladder. Colonic diverticulosis without evidence of diverticulitis. Normal caliber bowel without evidenceof obstruction. Normal appendix. No abdominopelvic lymphadenopathy by sizecriteria. Please see separate CT thoracic and lumbar spine reports for spinalfindings. Findings were discussed with See Mcfarland M.D. (Pager [phone]) on03/03/2024 2:19 AM IMPRESSION: 1. Acute right pelvic fractures with adjacent hematoma and evidence ofactive bleeding into the space of Retzius. 2. Intramuscular hematomas involving the right obturator externus andinternus without evidence of active extravasation. 3. 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 Cam Luna M.D. IMG CT PROCEDURES * CT Cervical Spine without IV Contrast (03/03/2024 2:16 AM CDT) Anatomical Region Laterality Modality Cervical Spine, Neuroradiolo gy RST LOS, [facility], [facility]ur[facility] N/A Computed Tomography, Compute d Tomography 03/03/2024 2:11 AM CDT Impressions 03/03/2024 6:17 AM CDT No acute fracture or malalignment of the cervical spine. Narrative 03/03/2024 6:17 AM CDT EXAM: CT CERVICAL SPINE WITHOUT IV CONTRAST COMPARISON: None FINDINGS: No acute fracture or traumatic malalignment of the cervical spine. No prevertebral soft tissue thickening. Tiny osseous fragments along the anterior-superior C4 and C5 vertebral bodies are favored to represent fractured degenerative osteophytes. Minimal multilevel cervical spondylosis. No high-grade bony neural foraminal or spinal canal stenosis. Amorphous calcification about the dens, which can be seen with hydroxyapatite or calcium pyrophosphate deposition. Procedure Note Mando Marquez M.D. - 03/03/2024 EXAM: CT CERVICAL SPINE WITHOUT IV CONTRAST COMPARISON: None FINDINGS: No acute fracture or traumatic malalignment of the cervicalspine. No prevertebral soft tissue thickening. Tiny osseous fragmentsalong the anterior-superior C4 and C5 vertebral bodies are favored torepresent fractured degenerative osteophytes. Minimal multilevel cervical spondylosis. No high-grade bony neuralforaminal or spinal canal stenosis. Amorphous calcification about thedens, which can be seen with hydroxyapatite or calcium pyrophosphatedeposition. IMPRESSION: No acute fracture or malalignment of the cervical spine. Cam Luna M.D. IMG CT PROCEDURES * CT Chest with IV Contrast (03/03/2024 2:16 AM CDT) Anatomical Region Laterality Modality Chest, Thoracic RST LOS, Tho racic ARZ LOS, Thoracic ARZ LOS, Thoracic FLA LOS N/A Computed Tomography, Compute d Tomography 03/03/2024 2:12 AM CDT Impressions 03/03/2024 5:03 AM CDT 1. ??Acute right pelvic fractures with adjacent hematoma and evidence of active bleeding into the space of Retzius. 2. ??Intramuscular hematomas involving the right obturator externus and internus without evidence of active extravasation. 3. 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 Narrative 03/03/2024 5:03 AM CDT REVISED REPORT: EXAM: CT CHEST WITH IV CONTRAST, CT ABDOMEN PELVIS WITH IV CONTRAST COMPARISON: CT chest 09/05/2013, CT abdomen pelvis 04/14/2019, CT pelvis 03/02/2024 FINDINGS: CT CHEST: No acute traumatic findings in the thorax. Old rib fractures. Lungs are clear without pleural effusion or consolidation. Bibasilar atelectasis or scarring. No significant pulmonary nodules. Mosaic attenuation likely secondary to air trapping. Left lower lobe calcified granuloma. No thoracic lymphadenopathy by size criteria. Cardiac size is normal without pericardial effusion. No acute vascular abnormality. Moderate esophageal hiatal hernia. CT ABDOMEN/PELVIS: Redemonstrated acute comminuted and displaced right superior, inferior, and pubic body fractures. There is adjacent contrast blush which changes on delayed imaging consistent with active bleed (series 3, image 188; series 7, image 91) into the space of Retzius. Muscular hematomas involving the obturator internus and externus without evidence of active extravasation. Acute fracture of the right anterior sacral ala (). The SI joints are bilaterally symmetric. Hepatic cyst. Cholelithiasis. 10 mm hypervascular lesion in the pancreatic head (), unchanged since CT 02/03/2007. Pancreatic atrophy. Normal spleen, adrenal glands. Bilateral renal cysts. Moderately distended urinary bladder. Colonic diverticulosis without evidence of diverticulitis. Normal caliber bowel without evidence of obstruction. Normal appendix. No abdominopelvic lymphadenopathy by size criteria. Please see separate CT thoracic and lumbar spine reports for spinal findings. Findings were discussed with See Mcfarland M.D. (Pager [phone]) on 03/03/2024 2:19 AM Procedure Note Alfonso Ariza M.D. - 03/03/2024 REVISED REPORT: EXAM: CT CHEST WITH IV CONTRAST, CT ABDOMEN PELVIS WITH IV CONTRAST COMPARISON: CT chest 09/05/2013, CT abdomen pelvis 04/14/2019, CT pelvis03/02/2024 FINDINGS: CT CHEST: No acute traumatic findings in the thorax. Old rib fractures. Lungs are clear without pleural effusion or consolidation. Bibasilaratelectasis or scarring. No significant pulmonary nodules. Mosaicattenuation likely secondary to air trapping. Left lower lobe calcifiedgranuloma. No thoracic lymphadenopathy by size criteria. Cardiac size is normal without pericardial effusion. No acutevascular abnormality. Moderate esophageal hiatal hernia. CT ABDOMEN/PELVIS: Redemonstrated acute comminuted and displaced right superior, inferior,and pubic body fractures. There is adjacent contrast blush which changeson delayed imaging consistent with active bleed (series 3, image 188;series 7, image 91) into the space of Retzius. Muscular hematomas involving the obturator internus and externuswithout evidence of active extravasation. Acute fracture of the rightanterior sacral ala (). The SI joints are bilaterally symmetric. Hepatic cyst. Cholelithiasis. 10 mm hypervascular lesion in the pancreatichead (3/274), unchanged since CT 02/03/2007. Pancreatic atrophy. Normalspleen, adrenal glands. Bilateral renal cysts. Moderately distendedurinary bladder. Colonic diverticulosis without evidence of diverticulitis. Normal caliber bowel without evidenceof obstruction. Normal appendix. No abdominopelvic lymphadenopathy by sizecriteria. Please see separate CT thoracic and lumbar spine reports for spinalfindings. Findings were discussed with See Mcfarland M.D. (Pager [phone]) on03/03/2024 2:19 AM IMPRESSION: 1. Acute right pelvic fractures with adjacent hematoma and evidence ofactive bleeding into the space of Retzius. 2. Intramuscular hematomas involving the right obturator externus andinternus without evidence of active extravasation. 3. 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 Cam Luna M.D. G CT PROCEDURES * CT Head without IV Contrast (03/03/2024 2:16 AM CDT) Anatomical Region Laterality Modality Head, Neuroradiology RST [facility] , Neuroradiology ARZ [facility], Neuroradiology FLA [facility] N/A Computed Tomography, Compute d Tomography 03/03/2024 2:07 AM CDT Impressions 03/03/2024 6:14 AM CDT No acute intracranial abnormality or fracture. Narrative 03/03/2024 6:14 AM CDT EXAM: CT HEAD WITHOUT IV CONTRAST COMPARISON: CT head 12/30/2009, brain MRI 03/21/2021 FINDINGS: No acute intracranial hemorrhage, mass effect, or infarct. No acute fracture. Moderate leukoaraiosis and generalized parenchymal volume loss. Intracranial arterial calcifications. Paranasal sinuses are clear. Mastoid air cells are clear and well aerated. Bilateral pseudophakia. Procedure Note Mando Marquez M.D. - 03/03/2024 EXAM: CT HEAD WITHOUT IV CONTRAST COMPARISON: CT head 12/30/2009, brain MRI 03/21/2021 FINDINGS: No acute intracranial hemorrhage, mass effect, or infarct. No acutefracture. Moderate leukoaraiosis and generalized parenchymal volume loss.Intracranial arterial calcifications. Paranasal sinuses are clear. Mastoidair cells are clear and well aerated. Bilateral pseudophakia. IMPRESSION: No acute intracranial abnormality or fracture. Cam Luna M.D. [facility] CT PROCEDURES * DX Elbow Right 3+ Views (03/03/2024 12:32 AM CDT) Anatomical Region Laterality Modality Upper Extremity, Elbow, Musc uloskeletal RST LOS, Musculoskeletal ARZ LOS, Muskuloskeletal FLA LOS Right Digit al Radiography Impressions 03/03/2024 9:12 AM CDT No comparison. No acute fracture of the right elbow. Radiocapitellar alignment is maintained. No joint effusion. Narrative 03/03/2024 9:12 AM CDT EXAM: ??DX ELBOW RIGHT 3+ VIEWS Procedure Note Alfonso Ariza M.D. - 03/03/2024 EXAM: DX ELBOW RIGHT 3+ VIEWS IMPRESSION: No comparison. No acute fracture of the right elbow. Radiocapitellaralignment is maintained. No joint effusion. Cam Luna M.D. [facility] [place] DIAGNOSTIC IMAGI NG PROCEDURES * DX Hip And Pelvis Right 2-3 Views (03/03/2024 12:31 AM CDT) Anatomical Region Laterality Modality Lower Extremity, Pelvis, Hip , Musculoskeletal RST LOS, Musculoskeletal ARZ LOS, Muskuloskeletal FLA LOS Right Digit al Radiography Impressions 03/03/2024 9:14 AM CDT Acute, comminuted, mildly displaced fractures of the right superior and inferior pubic rami. No additional fractures. Right hip alignment is maintained. Degenerative changes of the lower lumbar spine, hips, SI joints and pubic symphysis. Vascular calcifications. Narrative 03/03/2024 9:14 AM CDT EXAM: ??DX HIP AND PELVIS RIGHT 2-3 VIEWS Procedure Note Mary Valente M.D. - 03/03/2024 EXAM: DX HIP AND PELVIS RIGHT 2-3 VIEWS IMPRESSION: Acute, comminuted, mildly displaced fractures of the right superior andinferior pubic rami. No additional fractures. Right hip alignment ismaintained. Degenerative changes of the lower lumbar spine, hips, SIjoints and pubic symphysis. Vascular calcifications. Cam Luna M.D. [facility] [place] DIAGNOSTIC IMAGI NG PROCEDURES * CT Pelvis Musculoskeletal without IV Contrast (03/03/2024 12:23 AM CDT) Anatomical Region Laterality Modality Musculoskeletal, Musculoskel etal RST LOS, Musculoskeletal ARZ LOS, Muskuloskeletal FLA LOS N/A Computed Tomography, Compute d Tomography Impressions 03/03/2024 10:22 AM CDT Acute comminuted and displaced right superior pubic ramus fracture with extension through the pubic body. Additional mildly comminuted nondisplaced right inferior pubic ramus fracture. Acute minimally displaced fracture involving the inferior right sacral ala with extension to the inferior sacroiliac joint (series 9, image 69) No fracture involving the femoral head or acetabulum. Asymmetric enlargement and hyperdensity involving the right obturator internus suggestive of muscular hematoma measuring approximately 4.8 x 2.6 x 4.3 cm (series 5, image 224) scattered blood deep to the anterior abdominal wall, predominantly within the extraperitoneal space. Additional asymmetric enlargement of the right obturator externus, likely also muscular hematoma. Evaluation for active bleed cannot be determined on this noncontrast examination. Colonic diverticulosis. Hamstring enthesopathy at the origin and laterally. Narrative 03/03/2024 10:22 AM CDT EXAM: CT PELVIS MUSCULOSKELETAL WITHOUT IV CONTRAST COMPARISON: CT abdomen pelvis 04/14/2018. Cam Luna M.D. [facility] [place] CT PROCEDURES * CT Lumbar Spine without IV Contrast (03/03/2024 12:23 AM CDT) Anatomical Region Laterality Modality Lumbar Spine, Neuroradiology RST LOS, Neuroradiology ARZ LOS, Neuroradiology FLA LOS N/A Computed Tomography, Compute d Tomography Impressions 03/03/2024 6:23 AM CDT 1. ??No acute fracture or traumatic malalignment of the lumbar spine. 2. ??Lumbar spondylosis, as described. Narrative 03/03/2024 6:23 AM CDT EXAM: CT LUMBAR SPINE WITHOUT IV CONTRAST COMPARISON: CT abdomen pelvis 04/14/2018 FINDINGS: No acute fracture or traumatic malalignment of the lumbar spine. Prior right hemilaminectomies at L3-L4 and L4-L5. Grade 1-2 anterolisthesis at L4-L5 with unroofing of the posterior disc, similar to 04/14/2018. 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 Advanced facet arthropathy L4-L5 and L5-S1. Lumbar spine spondylosis with intervertebral disc height loss, greatest at L2-3. Multilevel facet arthropathy, ligamentum flavum hypertrophy, and posterior disc bulge contribute to advanced neural foraminal narrowing bilaterally at L4-5. At least moderate spinal canal stenosis at L4-5. Moderate-sized esophageal hiatal hernia. Right renal cyst. Aortoiliac atherosclerosis. Colonic diverticulosis. Procedure Note Mando Marquez M.D. - 03/03/2024 EXAM: CT LUMBAR SPINE WITHOUT IV CONTRAST COMPARISON: CT abdomen pelvis 04/14/2018 FINDINGS: No acute fracture or traumatic malalignment of the lumbar spine. Priorright hemilaminectomies at L3-L4 and L4-L5. Grade 1-2 anterolisthesis atL4-L5 with unroofing of the posterior disc, similar to 04/14/2018. Chronicright-sided pars defect at L4. Advanced facet arthropathy L4-L5 and L5-S1. Lumbar spine spondylosis with intervertebral disc height loss, greatest atL2-3. Multilevel facet arthropathy, ligamentum flavum hypertrophy, andposterior disc bulge contribute to advanced neural foraminal narrowingbilaterally at L4-5. At least moderate spinal canal stenosis at L4-5. Moderate-sized esophageal hiatal hernia. Right renal cyst. Aortoiliacatherosclerosis. Colonic diverticulosis. IMPRESSION: 1. No acute fracture or traumatic malalignment of the lumbar spine. 2. Lumbar spondylosis, as described. Cam Luna M.D. IMG CT PROCEDURES * Type and Screen (with Reflex Antibody ID) (03/02/2024 11:50 PM CDT) ABORh A Pos Not applicable 03/03/2024 3:15 AM CDT STRM Antibody Screen Negative Negative 03/03/2024 3:15 AM CDT STRM Type & Screen Expiration 03/05/2024 23:59 03/03/2024 3:15 AM CDT STRM Testing Location [facility] DEFAULT 03/03/2024 2:35 AM CDT STRM Blood (Blood, Venous) 03/02/2024 11:50 PM CDT 03/03/2024 2:35 AM CDT Adebayo Shepard M.D., M.P.H. LAB BLOOD BANK TEST ORDERABLES [facility] [address] [place] [address], [facility] [address] [place] [address] from Last 3 Months Advance Directives For more information, please contact: [phone] * Full Code (Latest Code Status on File) Date Activated Date Inactivated Comments 03/06/2024 9:17 AM 03/09/2024 4:56 PM Question Answer Comments Full Code: Discussed * Full Code Date Activated Date Inactivated Comments 03/04/2024 5:40 AM 03/06/2024 9:17 AM Question Answer Comments Full Code: Not Discussed Due to: Patient not available * Full Code Date Activated Date Inactivated Comments 01/30/2021 9:47 AM 01/31/2021 5:43 PM Question Answer Comments Full Code: Discussed * Full Code Date Activated Date Inactivated Comments 05/13/2019 9:21 PM 05/14/2019 5:58 PM Question Answer Comments Full Code: Discussed * Full Code Date Activated Date Inactivated Comments 05/12/2019 9:26 PM 05/13/2019 6:58 PM Question Answer Comments Full Code: Discussed Care Teams Hardboard Grinder Relationship Specialty Start Date End Date Elsewhere, Pcp PCP - General Family Medicine 01/31/21
--- OUTSIDE RECORDS SUMMARY | 2024-04-04 10:25 | XMS_ITS | Encounter Summary ---
Author Organization [facility] Address [address] [place] [id number] Care Team Providers Care Bilingual Social Worker Name Role Phone Elsewhere, Pcp Primary Care Provider Unavailabl e Reason for Visit * Reason Onset Date Comments Pre-visit Intake 03/30/2024 Encounter Details Date Type Department Care Team (Latest Contact Info) Description 03/30/2024 1:45 PM CDT Clinical Communication Virtual Review in [place], [place] [address] [place] [address] Pre-visit Intake Social History Tobacco Use Types Packs/Day Years Used Date Smoking Tobacco: Never Smokeless Tobacco: Never Tobacco Cessation:Counseling Given: Not Answered Alcohol Use Standard Drinks/Week Comments Not Currently 0 (1 standard drink = 0.6 oz pur e alcohol) [facility] Utilities Answer Date Recorded In the past 12 months has [facility] [employer], gas, oil, or water [employer] threatened to shut off services in your [...] How often do you attend chur or methodist services? More than 4 times per year 09/27/2022 Do you belong to any clubs o r organizations such as lutheran groups, unions, fraternal or athletic groups, or [...] and heating? Not hard at all 09/27/2022 [facility] [...] money to buy more. Never true 03/03/20 Within the past 12 months, t he [...] your living situation today? I have a [facility] place to live 03/03/2024 Education Answer Date Recorded What is the highest level of school you have completed or the highest degree you have received? 12th grade 09/27/2022 Sex and Gender Information Value Date Recorded Sex Assigned at Not on file Gender Identity Not on file Sexual Orientation Not on file documented as of this encounter Plan of Treatment Upcoming Encounters Date Type Department Care Team (Latest Contact Info) Description 04/04/2024 2:30 PM CDT Comprehensive Visit Department of Rehabilitation Services in [address] [phone] Rashaun Garcia, P.T. [address] [place] [phone] 04/05/2024 10:30 AM CDT Appointment Department of Radiology, [facility], in [place], [place] [address] [place] [phone] Nenita Elkins, MPAS, P.A.-C. [address] [place] [address] 04/05/2024 11:00 AM CDT Comprehensive Visit Division of Endocrinology in [address] [phone] Nenita Elkins MPAS, PJalil-CDann [address] [place] [phone] 04/05/2024 11:00 AM CDT Office Visit Department of Orthopedic Surgery in [address] [phone] Nenita Elkins MPAS, P.Jose A.-C. [address] [place] [phone] 04/07/2024 2:30 PM CDT Clinical Support Department of Rehabilitation Services in [address] [phone] Yobany Bateman APRN, C.N.P., D.N.P. [address] [place] [phone] Rashaun Garcia, P.TDann [address] [place] [phone] 04/08/2024 10:15 AM CDT Comprehensive Visit Department of Rehabilitation Services in [address] [phone] Clinton De Anda, P.T. [address] [place] [phone] 04/11/2024 2:30 PM CDT Clinical Support Department of Rehabilitation Services in [address] [phone] Yobany Bateman APRN, C.N.P., D.N.P. [address] [place] [phone] Rashaun Garcia PMaikel [address] [place] [address] [place] [address] 04/14/2024 10:30 AM CDT Clinical Support Department of Rehabilitation Services in [address] [place] [address] Yobany Bateman APRN, C.N.P., D.N.P. [address] [place] [phone] Rashaun Garcia P.T. [address] [place] [address] [place] [phone] 04/18/2024 10:30 AM CDT Clinical Support Department of Rehabilitation Services in [address] [place] [phone] Yobany Bateman APRN, C.N.P., D.N.P. [address] [place] [phone] Rashaun Garcia P.T. [address] [place] [address] [place] [phone] 04/21/2024 10:30 AM CDT Clinical Support Department of Rehabilitation Services in [address] [place] [phone] Yobany Bateman APRN, C.N.P., D.N.P. [address] [place] [phone] Rashaun Garcia P.T. [address] [place] [address] [place] [address] documented as of this encounter Visit Diagnoses Not on filedocumented in this encounter Additional Health Concerns Assessment Noted Time PHQ-9 Depression Total Score: 0 11/02/19 14 2:53 PM EDGER LINER documented as of this encounter Care Teams Bilingual Social Worker Relationship Specialty Start Date End Date Elsewhere, Pcp PCP - General Family Medicine 01/31/21 documented as of this encounter
--- OUTSIDE RECORDS SUMMARY | 2024-04-04 10:25 | XMS_ITS ---
Author Organization [facility] Address [address] [place] [address] Care Team Providers Care Neon Sign Mechanic Name Role Phone Unavailable Unavailable Unavailable Surgery Details Not on file Complications Check Surgery Details section. Procedure Estimated Blood Loss Check Surgery Details section. Procedure Findings Check Surgery Details section. Procedure Specimens Taken Check Surgery Details section.
--- OUTSIDE RECORDS SUMMARY | 2024-04-04 10:25 | XMS_ITS | Referral Summary ---
Author Organization [facility] Address [address] [place] [address] Care Team Providers Care Customer Support Agent Name Role Phone Elsewhere, Pcp Primary Care Provider Unavailabl e Source Comments Patient records contain information from all sites at [facility]. For routine questions regarding patient records, call [phone] during business hours, M-F 8:00 AM - 5:00 PM Central Time. Record requests for emergency care only can be directed to [phone] at any time.[facility] Encounters Date Type Department Care Team Description 03/30/2024 1:45 PM CDT Clinical Communication Virtual Review in [place], [place] 200 [place] [address] Pre-visit Intake 03/10/2024 Orders Only Department of Orthopedic Surgery in [address] [phone] Nenita Elkins MPAS, P.A.-C. 03/10/2024 Clinical Communication Department of Orthopedic Surgery in [address] [phone] Nenita Elkins MPAS, P.A.-C. Lovenox Injections 03/02/2024 10:47 PM CDT - 03/09/2024 2:56 PM CDT Hospital Encounter [facility], [facility], Fifth Floor [address] [place] [phone] Adebayo Shepard M.D., M.P.H. Stacey Boone M.D. Sree Zaidi M.D. Aries Sinha M.D. History Of Falling (Primary Dx); Fracture Pelvis Other Parts Closed Initial (HCC); Difficulty Walking Orthopedic Cause [R26.2]; Decline Functional Status [R53.81] Discharge Disposition: [facility] 03/05/2024 8:15 AM CDT Ancillary Procedure Department of Nursing 03/05/2024 8:10 AM CDT Ancillary Procedure Department of Nursing 03/03/2024 Orders Only Department of Orthopedic Surgery in [address] [phone] Nenita Elkins, MPAS, P.A.-C. Fracture Pelvis Other Parts Closed Initial (HCC) (Primary Dx) from Last 3 Months Allergies Active Allergy [...] ounces) of beverage. 27 packet 03/09/20 24 024 Active sennosides-docusat e sodium (Senokot-S) 8.6-50 mg [...] 03/30/24 for DVT prophylaxis 8 mL 03/10/20 Active oxyCODONE (Roxicodone) 5 mg immediate release [...] hours as needed. 03/24/20 24 Active vitamins A,C,B-flpg-jnmwag (PreserVision AREDS) 7,160 Units-113 mg-100 Units per [...] Arthritis Rheumatoid 10/25/2010 Overview (02/03/2017): Arthritis, rheumatoid* Immunizations Name Administration Dates Next [...] Recorded In the past 12 months has th e electric, gas, oil, or water company threatened to shut off services in your [...] week 09/27/2022 How often do you attend [facility] or voodoo services? More than 4 times per year 09/27/2022 Do you belong to any clubs o r organizations such as uatsdin groups, unions, fraternal or athletic groups, or [...] you are drinking? Patient does not drink 01/14/202 3 Q3: How often do you have si x or more drinks on one occasion? Never 09/27/2022 Overall Financial Resource Strain (CARDIA) Answe r Date Recorded How hard is it for you to pa y for the very basics like food, housing, medical care, and heating? Not hard at all 09/27/2022 [facility] of Occupat ional Health - Occupational [...] Visit Department of Rehabilitation Services in [address] [phone] Rashaun Garcia, P.TDann [address] [place] [phone] 04/05/2024 10:30 AM CDT Appointment Department of Radiology, [facility], in [address] [phone] Nenita Elkins MPAS, P.A.-C. [address] [place] [phone] 04/05/2024 11:00 AM CDT Comprehensive Visit Division of Endocrinology in [address] [phone] Nenita Elkins MPAS, P.A.-C. [address] [place] [phone] 04/05/2024 11:00 AM CDT Office Visit Department of Orthopedic Surgery in [address] [phone] Nenita Elkins MPAS, P.A.-C. [address] [place] [phone] 04/07/2024 2:30 PM CDT Clinical Support Department of Rehabilitation Services in [address] [address] Yobany Bateman APRN, C.N.P., D.N.P. [address] [place] [phone] Rashaun Garcia, P.T. [address] [place] [phone] 04/08/2024 10:15 AM CDT Comprehensive Visit Department of Rehabilitation Services in [address] [phone] Clinton De Anda, P.T. [address] [place] [phone] 04/11/2024 2:30 PM CDT Clinical Support Department of Rehabilitation Services in [address] [address] Yobany Bateman APRN, C.N.P., D.N.P. [address] [place] [phone] Rashaun Garcia, P.TDann [address] [place] [phone] 04/14/2024 10:30 AM CDT Clinical Support Department of Rehabilitation Services in [address] [phone] Yobany Bateman APRN, C.N.P., D.N.P. [address] [place] [phone] Rashaun Garcia, P.TDann [address] [place] [phone] 04/18/2024 10:30 AM CDT Clinical Support Department of Rehabilitation Services in [address] [phone] Yobany Bateman APRN, Angy.NOlivia, D.N.P. [address] [place] [phone] Rashaun Garcia P.Marleni [address] [place] [phone] 04/21/2024 10:30 AM CDT Clinical Support Department of Rehabilitation Services in [address] [phone] Yobany Bateman APRN, Angy.N.PDann, D.N.P. [address] [place] [phone] Rashaun Garcia, P.TDann [address] [place] [phone] Medical Devices Implanted Type Area Wall Taper Device Identifier Shelf Expiration Date Model / [...] PM CDT 03/07/2024 9:51 PM CDT Renée Brannon M.D. LAB BLOOD ADD-ON [facility] [address] [place] [address], [facility] DTL [facility] [address] [place] [address] * (ABNORMAL) Basic Metabolic Panel (03/07/2024 9:21 PM CDT) Only the most recent of8 resultswithin the time period is included. [facility] Potassium, S 4.7 3.6 - 5.2 mmol/L [...] CDT Renée Brannon M.D. LAB BLOOD ADD-ON [facility] [address] [address], [facility] [address] [address] * DX Abdomen Portable Anterior Posterior 1 [...] PORTABLE ANTERIOR POSTERIOR 1 VIEW Procedure Note Boyum, Alfonso H, M.D. - 03/06/2024 EXAM: DX ABDOMEN PORTABLE [...] CDT Melisa Erwin M.D. LAB BLOOD ADD-ON [facility] [address] [place] [address], [facility] DTL [facility] [address] [place] [address] * ECG 12 Lead (03/05/2024 11:54 PM CDT) Only the most recent of2 resultswithin the time period is included. Ventricular Rate ECG/Min 73 BPM MUSE [place] Interval 168 ms MUSE QRSD Interval 86 ms MUSE QT Interval 376 ms MUSE QTC Interval 414 ms MUSE P [place] 63 degrees MUSE R [place] 40 degrees MUSE T Wave [place] 60 degrees MUSE 03/05/2024 11:5 4 PM [...] LETICIA Amador Marychuy Estes M.D. ECG ORDERABLES MUSE NA * (ABNORMAL) Glucose, POCT (03/05/2024 11:44 PM CDT) Pathologist [facility] Glucose, POCT, B 143(H) 70 - 140 mg/dL 03/05/2024 11:53 PM CDT PCLX Site Capillary 03/05/2024 11:53 PM CDT PCLX Last Intake > 4 hours 03/05/2024 11:53 PM CDT PCLX Blood 03/05/2024 11:4 4 PM CDT 03/05/2024 11:53 PM CDT Unknown Provider LAB POCT ORDERABLES- MANUAL POC [facility] [address] [place] [address], [facility] PCLX [facility] Laboratories [facility] POC [address] [place] [address] * Leg, right-Nursing Image Exam (03/05/2024 8:12 [...] RAD IMAGI NG PROCEDURES Performing Organization Address City/[facility]/ZIP Co de Phone Number IINJ NA * (ABNORMAL) Hemoglobin (03/04/2024 6:38 AM CDT) Only the most recent of2 resultswithin the time period is included. Hemoglobin 10.4(L) 11.6 - 15.0 g/dL 03/04/2024 7:14 AM CDT DTL Blood (Blood, Venous) 03/04/2024 6:38 AM CDT 03/04/2024 7:01 AM CDT Renée Brannon M.D. LAB BLOOD ADD-ON Performing Organization Address City/[facility]/ZIP Co de Phone Number [address] [place] [address] * (ABNORMAL) Vitamin B12 Assay (03/03/2024 8:16 PM CDT) Vitamin B12 Assay, S 1299(H) 180 - [...] 03/03/2024 9:14 PM CDT Juan Mcpherson Jr., CYRIL, C.N.P., M.S.N . LAB BLOOD ADD-ON [facility] [address] [place] [address], [facility] DTL [facility] [address] [place] [address] * DX Pelvis 3+ Views (03/03/2024 5:02 [...] created and stored. Using Seldinger technique, a 5-Trinidadian vascular sheath was placed. A Flush catheter [...] was 83 minutes. Maggi Escalante M.D., M.S. [facility] IR PRO CEDURES * (ABNORMAL) Venous Blood [...] M.D. LAB POCT ORDERABLES - DEVICE POC [facility] [address] [place] [id number], [place] PCLX [facility] POC [address] [place] [address] PCSM [facility] POC [address] [place] [address] * CT Thoracic Spine by Reconstruction (03/03/2024 2:16 AM CDT) Anatomical Region Laterality Modality Thoracic Spine, Neuroradiolo gy RST LOS, Neuroradiology ARZ LOS, Neuroradiology FLA [...] traumatic malalignment of the thoracic spine. Cam Luna M.D. IMG CT PROCEDURES * CT Abdomen Pelvis with [...] mm hypervascular lesion in the pancreatic head (3/274), unchanged since CT 02/03/2007. Pancreatic atrophy. Normal spleen, adrenal glands. Bilateral renal cysts. Moderately distended urinary bladder. Colonic diverticulosis without evidence of diverticulitis. Normal caliber bowel without evidence of obstruction. Normal appendix. No abdominopelvic lymphadenopathy by size criteria. Please see separate CT thoracic and lumbar spine reports for spinal findings. Findings were discussed with See Mcfarland M.D. (Pager [phone]) on 03/03/2024 2:19 AM Procedure Note Alfonso [...] were discussed with See Mcfarland M.D. (Pager [phone]) on03/03/2024 2:19 AM IMPRESSION: 1. Acute right [...] Cervical Spine, Neuroradiolo gy RST LOS, Neuroradiology ARZ LOS, Neuroradiology FLA [...] of the cervical spine. Cam Luna M.D. [facility] CT PROCEDURES * CT Chest with IV [...] mm hypervascular lesion in the pancreatic head (3/274), unchanged since CT 02/03/2007. Pancreatic atrophy. Normal spleen, adrenal glands. Bilateral renal cysts. Moderately distended urinary bladder. Colonic diverticulosis without evidence of diverticulitis. Normal caliber bowel without evidence of obstruction. Normal appendix. No abdominopelvic lymphadenopathy by size criteria. Please see separate CT thoracic and lumbar spine reports for spinal findings. Findings were discussed with See Mcfarland M.D. (Pager [phone]) on 03/03/2024 2:19 AM Procedure Note Alfonso [...] were discussed with See Mcfarland M.D. (Pager [phone]) on03/03/2024 2:19 AM IMPRESSION: 1. Acute right pelvic fractures with adjacent hematoma and evidence ofactive bleeding into the space of Retzius. 2. Intramuscular hematomas involving the right obturator externus andinternus without evidence of active extravasation. 3. 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 Cam Luna M.D. IMG CT PROCEDURES * CT Head without IV Contrast (03/03/2024 2:16 AM CDT) Anatomical Region Laterality Modality Head, Neuroradiology RST LOS , Neuroradiology ARZ LOS, Neuroradiology FLA LOS N/A [...] intracranial abnormality or fracture. Cam Luna M.D. [facility] CT PROCEDURES * DX Elbow Right 3+ [...] maintained. No joint effusion. Cam Luna M.D. [facility] DIAGNOSTIC IMAGI NG PROCEDURES * DX Hip [...] pubic symphysis. Vascular calcifications. Cam Luna M.D. IMG DIAGNOSTIC IMAGI NG PROCEDURES * CT Pelvis [...] CT abdomen pelvis 04/14/2018. Cam Luna M.D. Ras CT PROCEDURES * CT Lumbar Spine without [...] Reflex Antibody ID) (03/02/2024 11:50 PM CDT) Pathologist [facility] ABORh A Pos Not applicable 03/03/2024 3:15 AM CDT STRM Antibody Screen Negative Negative 03/03/2024 3:15 AM CDT STRM Type & Screen Expiration 03/05/2024 23:59 03/03/2024 3:15 AM CDT STRM Testing Location [place] DEFAULT 03/03/2024 2:35 AM CDT STRM Blood (Blood, Venous) 03/02/2024 11:50 PM CDT 03/03/2024 2:35 AM CDT Adebayo Shepard M.D., M.P.H. LAB BLOOD BANK TEST ORDERABLES [facility] [address] [place] [address], [facility] [address] [place] [address] from Last 3 Months Advance Directives For more information, please contact: [phone] * Full Code (Latest Code Status on [...] Answer Comments Full Code: Discussed Care Teams Customer Support Agent Relationship Specialty Start Date End Date Elsewhere, Pcp PCP - General Family Medicine 01/31/21
--- OUTSIDE RECORDS SUMMARY | 2024-04-04 10:25 | XMS_ITS | Encounter Summary ---
Author Organization [facility] Address [address] [place] [address] Care Team Providers Care Model And Pattern Supervisor Name Role Phone Elsewhere, Pcp Primary Care Provider Unavailabl e Reason for Visit * Reason Onset Date Comments Lovenox Injections 03/10/2024 Encounter Details Date Type Department Care Team (Latest Contact Info) Description 03/10/2024 Clinical Communication Department of Orthopedic Surgery in [place], [place] [address] [place] [address] Nenita Elkins, MPAS, P.A.-C. [address] [place] [phone] Lovenox Injections Social History Tobacco Use Types Packs/Day Years Used Date Smoking Tobacco: Never Smokeless Tobacco: Never Alcohol Use Standard Drinks/Week Comments Not Currently 0 (1 standard drink = 0.6 oz pur e alcohol) [facility] Utilities Answer Date Recorded In the past 12 months has e electric, gas, oil, or water company [...] How often do you attend chur or yarsanism services? More than 4 times per year 09/27/2022 Do you belong to any clubs o r organizations such as restoration groups, unions, fraternal or athletic groups, or [...] and heating? Not hard at all 09/27/2022 [facility] [place] of Occupat ional Health - Occupational Stress [...] your living situation today? I have a [facility] place to live 03/03/2024 Education Answer [...] Comprehensive Visit Department of Rehabilitation Services in [address] [phone] Rashaun Garcia, P.T. [address] [place] [phone] 04/05/2024 10:30 AM CDT Appointment Department of Radiology, [facility], in [place], [place] [address] [place] [address] Nenita Elkins, MPAS, P.A.-C. [address] [place] [phone] 04/05/2024 11:00 AM CDT Comprehensive Visit Division of Endocrinology in [address] [phone] Nenita Elkins MPAS, P.A.-C. [address] [place] [phone] 04/05/2024 11:00 AM CDT Office Visit Department of Orthopedic Surgery in [address] [phone] Nenita Elkins MPAS, P.A.-C. [address] [place] [phone] 04/07/2024 2:30 PM CDT Clinical Support Department of Rehabilitation Services in [address] [phone] Yobany Bateman APRN, C.N.P., D.N.P. [address] [place] [phone] Rashaun Garcia, P.TDann [address] [place] [phone] 04/08/2024 10:15 AM CDT Comprehensive Visit Department of Rehabilitation Services in [address] [phone] Clinton De Anda, P.T. [address] [place] [phone] 04/11/2024 2:30 PM CDT Clinical Support Department of Rehabilitation Services in [address] [phone] Yobany Bateman APRN, C.N.P., D.N.P. [address] [place] [phone] Rashaun Garcia P.TDann [address] [place] [address] [place] [address] 04/14/2024 10:30 AM CDT Clinical Support Department of Rehabilitation Services in [address] [place] [address] Yobany Bateman APRN, EsperanzaNOlivia, D.N.P. [address] [place] [phone] Rashaun Garcia P.Marleni [address] [place] [address] [place] [address] 04/18/2024 10:30 AM CDT Clinical Support Department of Rehabilitation Services in [address] [place] [address] Yobany Bateman APRN, EsperanzaNOlivia, D.N.P. [address] [place] [phone] Rashaun Garcia P.TDann [address] [place] [address] [place] [address] 04/21/2024 10:30 AM CDT Clinical Support Department of Rehabilitation Services in [address] [place] [address] Yobany Bateman APRN, EsperanzaNOlivia, D.N.P. 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
--- OUTSIDE RECORDS SUMMARY | 2024-04-04 10:25 | XMS_ITS | Encounter Summary ---
Author Organization [facility] Address [address] [place] [address] Care Team Providers Care Model Technician Name Role Phone Elsewhere, Pcp Primary Care Provider Unavailabl e Encounter Details Date Type Department Care Team (Late st Contact Info) Description 03/10/2024 Orders Only Department of Orthopedic Surgery in [place], [place] [address] [place] [address] Nenita Elkins, MPAS, P.A.-C. [address] [place] [phone] Social History Tobacco Use Types Packs/Day Years Used Date Smoking Tobacco: Never Smokeless Tobacco: Never Alcohol Use Standard Drinks/Week Comments Not Currently 0 (1 standard drink = 0.6 oz pur e alcohol) [facility] Utilities Answer Date Recorded In the past 12 months has e [employer], gas, oil, or water [employer] threatened to shut off services in your [...] How often do you attend chur or jain services? More than 4 times per year [...] and heating? Not hard at all 09/27/2022 [facility] of Occupat ional Health - Occupational Stress [...] your living situation today? I have a [facility] place to live 03/03/2024 Education Answer [...] Comprehensive Visit Department of Rehabilitation Services in [address] [phone] Rashaun Garcia, P.T. [address] [place] [phone] 04/05/2024 10:30 AM CDT Appointment Department of Radiology, [facility], in [place], [place] [address] [place] [phone] Nenita Elkins, MPAS, P.A.-C. [address] [place] [address] 04/05/2024 11:00 AM CDT Comprehensive Visit Division of Endocrinology in [address] [phone] Nenita Elkins MPAS, PJalil-CDann [address] [place] [phone] 04/05/2024 11:00 AM CDT Office Visit Department of Orthopedic Surgery in [address] [phone] Nenita Elkins MPAS, P.A.-CDann [address] [place] [phone] 04/07/2024 2:30 PM CDT Clinical Support Department of Rehabilitation Services in [address] [phone] Yobany Bateman APRN, C.N.P., D.N.P. [address] [place] [phone] Rashaun Garcia, P.TDann [address] [place] [phone] 04/08/2024 10:15 AM CDT Comprehensive Visit Department of Rehabilitation Services in [address] [phone] Clinton De Anda, P.T. [address] [place] [phone] 04/11/2024 2:30 PM CDT Clinical Support Department of Rehabilitation Services in [address] [phone] Yobany Bateman APRN, C.N.P., D.N.P. [address] [place] [phone] Rashaun Garcia P.TDann [address] [place] [address] [place] [address] 04/14/2024 10:30 AM CDT Clinical Support Department of Rehabilitation Services in [address] [place] [address] Yobany Bateman APRN, Angy.N.PDann, D.N.P. [address] [place] [phone] Rashaun Garcia P.Marleni [address] [place], [place] [address] [address] 04/18/2024 10:30 AM CDT Clinical Support Department of Rehabilitation Services in [address] [place] [address] Yobany Bateman APRN, Angy.N.PDann, D.N.P. [address] [place] [phone] Rashaun Garcia, P.Marleni [address] [place] [address] [place] [address] 04/21/2024 10:30 AM CDT Clinical Support Department of Rehabilitation Services in [address] [place] [address] Yobany Bateman APRN, C.N.P., D.N.P. [address] [place] [phone] Rashaun Garcia P.TDann [address] [place] [address] [place] [address] documented as of this encounter Visit Diagnoses Not on filedocumented in this encounter Additional Health Concerns Assessment Noted Time PHQ-9 Depression Total Score: 0 11/02/19 14 2:53 PM [employer] documented as of this encounter Care Teams Model Technician Relationship Specialty Start Date End Date Elsewhere, Pcp PCP - General Family Medicine 01/31/21 documented as of this encounter
--- OUTSIDE RECORDS SUMMARY | 2024-04-04 10:26 | XMS_ITS | Encounter Summary ---
Author Organization [facility] Address [address] [place] [phone] Care Team Providers Care Beam Department Supervisor Name Role Phone Elsewhere, Pcp Primary Care Provider Unavailabl e Reason for Referral * Outpatient (Routine) - Authorized Specialty Diagnoses / Procedures Referred By Contac t Referred To Contact Diagnoses Fracture Pelvis Other Parts Closed Initial (HCC) Procedures DX Pelvis 3+ Views DX Pelvis 1-2 Views Nenita Elkins MPAS, P.A.-CDann [address] [place] [phone] [facility] Referral ID Status Reason Start Date Expiration Date V isits Requested Visits Authorized [id number] Authorized 03/03/2024 03/03/2025 1 1 * Outpatient (Routine) - Authorized Specialty Diagnoses / Procedures Referred By Contac t Referred To Contact Endocrinology Diagnoses Fracture Pelvis Other Parts Closed Initial (HCC) Nenita Elkins MPAS, P.A.-C. [address] [place] [phone] [facility] Referral ID Status Reason Start Date Expiration Date V isits Requested Visits Authorized [id number] Authorized 03/03/2024 09/02/2025 1 1 * Outpatient (Routine) - Authorized Specialty Diagnoses / Procedures Referred By Violeta keating Referred To Contact Orthopedic Surgery Nenita Elkins MPAS, P.A.-Esperanza [address] [place] [phone] [facility] Referral ID Status Reason Start Date Expiration Date V isits Requested Visits Authorized [id number] Authorized 03/03/2024 09/02/2025 1 1 Scheduling Instructions Nenita Elkins, BRENDA W/ ENDO XR prior. appt between - Encounter Details Date Type Department Care Team (Late st Contact Info) Description 03/03/2024 Orders Only Department of Orthopedic Surgery in [place], [place] [address] [place] [phone] Nenita Elkins MPAS, P.A.-C. [address] [place] [phone] Fracture Pelvis Other Parts Closed Initial (HCC) (Primary Dx) Social History Tobacco Use Types Packs/Day Years Used Date Smoking Tobacco: Never Smokeless Tobacco: Never Alcohol Use Standard Drinks/Week Comments Not Currently 0 (1 standard drink = 0.6 oz pur e alcohol) [facility] Utilities Answer Date Recorded In the past 12 months has [facility] [employer]), oil, or water [employer] threatened to shut off services in your [...] How often do you attend chur or uatsdin services? More than 4 times per year 09/27/2022 Do you belong to any clubs o r organizations such as latter-day groups, unions, fraternal or athletic groups, or [...] and heating? Not hard at all 09/27/2022 [facility] Occupat ional Health - Occupational Stress [...] your living situation today? I have a [facility] place to live 03/03/2024 Education Answer [...] Comprehensive Visit Department of Rehabilitation Services in [address] [phone] Rashaun Garcia, P.T. [address] [place] [phone] 04/05/2024 10:30 AM CDT Appointment Department of Radiology, [facility], in [place], [place] [address] [place] [phone] Nenita Elkins, WHITNEYS, P.A.-C. [address] [place] [address] 04/05/2024 11:00 AM CDT Comprehensive Visit Division of Endocrinology in [address] [phone] Nenita Elkins MPAS PCeliCDann [address] [place] [phone] 04/05/2024 11:00 AM CDT Office Visit Department of Orthopedic Surgery in [address] [phone] Nenita Elkins MPAS, P.A.-CDann [address] [place] [phone] 04/07/2024 2:30 PM CDT Clinical Support Department of Rehabilitation Services in [address] [phone] Yobany Bateman APRN, C.N.P., D.N.P. [address] [place] [phone] Rashaun Garcia, P.T. [address] [place] [phone] 04/08/2024 10:15 AM CDT Comprehensive Visit Department of Rehabilitation Services in [address] [phone] Clinton De Anda, P.T. [address] [place] [phone] 04/11/2024 2:30 PM CDT Clinical Support Department of Rehabilitation Services in [address] [phone] Yobany Bateman APRN, C.N.P., D.N.P. [address] [place] [phone] Rashaun Garcia P.TDann [address] [place] [address] [place] [address] 04/14/2024 10:30 AM CDT Clinical Support Department of Rehabilitation Services in [address] [place] [phone] Yobany Bateman APRN, C.N.P., D.N.P. [address] [place] [phone] Rashaun Garcia P.Marleni [address] [place] [address] [place] [phone] 04/18/2024 10:30 AM CDT Clinical Support Department of Rehabilitation Services in [address] [phone] Yobany Bateman APRN, C.N.P., D.N.P. [address] [place] [phone] Rashaun Garcia, P.Marleni [address] [place], [place] [address] [place] [phone] 04/21/2024 10:30 AM CDT Clinical Support Department of Rehabilitation Services in [address] [place] [phone] Yobany Bateman APRN, C.N.P., D.N.P. [address] [place] [phone] Rashaun Garcia, P.TDann [address] [place], [place] [address] [place] [address] Scheduled Orders Name Type Priority Associated Diagnoses Orde r Schedule DX Pelvis 3+ Views Imaging RAD - Routine (most inpatients and all outpatients) Fracture Pelvis Other Parts Closed Initial (HCC) Expected: 04/05/2024, Expires: 03/03/2025 Scheduled Referrals Name Type Priority Associated Diagnoses Order Schedule Orthopedic Surgery office visit (clinic) Outpatient Referral Routine Expect ed: 04/05/2024, Expires: 06/03/2025 Endocrinology - Fragility fracture consult (clinic) Outpatient Referral Routine Fracture Pelvis Other Parts Closed Initial (HCC) Expected: 04/05/2024, Expires: 06/03/2025 documented as of this encounter Visit Diagnoses Diagnosis Fracture Pelvis Other Parts Closed Initial (HCC)- Primary 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
--- OUTSIDE RECORDS SUMMARY | 2024-04-04 10:26 | XMS_ITS | Encounter Summary ---
Author Organization [facility] Address [address] [place] [address] Care Team Providers Care Manager Intensive Care Name Role Phone Elsewhere, Pcp Primary Care Provider Unavailabl e Encounter Details Date Type Department Care Team (Late st Contact Info) Description 03/05/2024 8:15 AM CDT Ancillary Procedure Department of Nursing Social History Tobacco Use Types Packs/Day Years Used Date Smoking Tobacco: Never Smokeless Tobacco: Never Alcohol Use Standard Drinks/Week Comments Not Currently 0 (1 standard drink = 0.6 oz pur e alcohol) [facility] Utilities Answer Date Recorded In the past 12 months has [facility] [employer], gas, oil, or water [employer] threatened to shut off services in your [...] How often do you attend chur or amish services? More than 4 times per year 09/27/2022 Do you belong to any clubs o r organizations such as scientologist groups, unions, fraternal or athletic groups, or [...] and heating? Not hard at all 09/27/2022 [facility] of Occupat ional Health - Occupational Stress [...] your living situation today? I have a [facility] place to live 03/03/2024 Education Answer Date [...] Comprehensive Visit Department of Rehabilitation Services in [address] [phone] Rashaun Garcia, P.T. [address] [place] [phone] 04/05/2024 10:30 AM CDT Appointment Department of Radiology, [facility] in [address] [phone] Nenita Elkins MPAS, P.A.-C. [address] [place] [phone] 04/05/2024 11:00 AM CDT Comprehensive Visit Division of Endocrinology in [address] [phone] Nenita Elkins MPAS, P.A.-C. [address] [place] [phone] 04/05/2024 11:00 AM CDT Office Visit Department of Orthopedic Surgery in [place], [place] [address] [place] [phone] Nenita Elkins MPAS, P.A.-C. [address] [place] [phone] 04/07/2024 2:30 PM CDT Clinical Support Department of Rehabilitation Services in [address] [phone] Yobany Bateman APRN, Angy.N.Abelino., D.N.P. [address] [place] [phone] Rashaun Garcia, P.TDann [address] [place] [phone] 04/08/2024 10:15 AM CDT Comprehensive Visit Department of Rehabilitation Services in [address] [phone] Clinton De Anda, P.T. [address] [place] [phone] 04/11/2024 2:30 PM CDT Clinical Support Department of Rehabilitation Services in [address] [phone] Yobany Bateman APRN, Angy.N.Abelino., D.N.P. [address] [place] [phone] Rashaun Garcia, P.T. [address] [place] [phone] 04/14/2024 10:30 AM CDT Clinical Support Department of Rehabilitation Services in [address] [phone] Yobany Bateman APRN, Angy.N.P., D.N.P. [address] [place] [phone] Rashaun Garcia, P.TDann [address] [place] [phone] 04/18/2024 10:30 AM CDT Clinical Support Department of Rehabilitation Services in [address] [phone] Yobany Bateman APRN, Angy.N.P., D.N.P. [address] [place] [phone] Rashaun Garcia, P.Marleni [address] [place] [phone] 04/21/2024 10:30 AM CDT Clinical Support Department of Rehabilitation Services in [address] [phone] Yobany Bateman APRN, Angy.N.P., D.N.P. [address] [place] [phone] Rashaun Garcia, P.TDann [address] [place] [phone] documented as of this encounter Procedures Procedure Name Priority Date/Time Associated Diagnosis Comments NURSING IMAGE EXAM Routine 03/05/2024 8: 12 AM CDT documented in this encounter Results * Leg, right-Nursing Image Exam (03/05/2024 8:12 AM CDT) 03/05/2024 8:09 AM CDT Narrative IIMS - 03/05/2024 8:12 AM CDT This order has been created and auto-finalized to support the import of images acquired without order. The clinical documentation to support these images can be found on the encounter that produced images. 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
--- OUTSIDE RECORDS SUMMARY | 2024-04-04 10:26 | XMS_ITS | Encounter Summary ---
Author Organization [facility] Address [address] [place] [id number] Care Team Providers Care Solution Director Name Role Phone Elsewhere, Pcp Primary Care Provider Unavailabl e Reason for Visit * Reason Comments Fall Hip Injury Encounter Details Date Type Department Care Team (Latest Contact Info) Description 03/02/2024 10:47 PM CDT - 03/09/2024 2:56 PM CDT Hospital Encounter [facility], [facility], [facility], Fifth Floor [address] [place] [address] Adebayo Shepard M.D., M.P.H. [address] [place] [phone] Stacey Boone M.D. [address] [place] [address] [place] [address] Sree Zaidi M.D. [address] [place] [phone] Aries Sinha M.D. [address] [place] [phone] History Of Falling (Primary Dx); Fracture Pelvis Other Parts Closed Initial (HCC); Difficulty Walking Orthopedic Cause [R26.2]; Decline Functional Status [R53.81] Discharge Disposition: [facility] Social History Tobacco Use Types Packs/Day Years Used Date Smoking Tobacco: Never Smokeless Tobacco: Never Alcohol Use Standard Drinks/Week Comments Not Currently 0 (1 standard drink = 0.6 oz pur e alcohol) [facility] Utilities Answer Date Recorded In the [...] week 09/27/2022 How often do you attend [facility] or [facility] services? More than 4 times [...] and heating? Not hard at all 09/27/2022 [facility] - [facility] [...] Mass Index 25.66 03/03/2024 3:30 PM CDT documented in this encounter Discharge Summaries * Renée Brannon M.D. - 03/09/2024 1:00 PM CDT DISCHARGE SUMMARY BRIEF OVERVIEW Hospital: [facility] Discharge Provider: Aries Sinha M.D. [facility] Primary Care Providers: Elsewhere, Pcp (General) No address on file Admission Date: 03/02/2024 Discharge Date: 03/09/24 PRINCIPAL DIAGNOSIS History Of Falling SECONDARY DIAGNOSES Principal Problem: History Of Falling Active Problems: Arthritis Rheumatoid (HCC) Vertigo Vertigo Benign Paroxysmal Positional Bilateral Osteoporosis Fracture Pelvis Other Parts Closed Initial (HCC) Neuropathy Peripheral Mononeuropathy Lower Limb Right Hemorrhage Lesion Pancreas Failure Renal Acute (Acute Kidney Injury) ([facility]) Resolved Problems: * No resolved hospital problems. * DISCHARGE DISPOSITION [facility] [3] ACTIVE ISSUES REQUIRING FOLLOW UP ORTHOPEDIC TRAUMA SURGERY RECOMMENDATIONS: Regarding your right sided LC I pelvic ring injury / fracture ACTIVITY MOBILITY - RIGHT LOWER EXTREMITY: You should remain FULL weight bearing as tolerated status until advised by a physician - using gaitaid (walker) for ambulation assistance. You should keep the lower extremity elevated at or above the level of your heart to help decrease swelling and pain You are to keep your heel off the bed for extended periods to prevent pressure ulcers from forming You will continue with physical therapy and rehabilitation exercises as described in the hospital Range of motion: no restrictions, range of motion as tolerated at your right leg. We anticipate based off your fracture pattern right sided groin pain and right sided low back pain. This should improve as your fractures continue to heal FOLLOW UP: You have a follow up appointment in the clinic: You will be seen in the Orthopedic Trauma Service clinic on 04/05/24 by Nenita Elkins PA-C for a follow up appointment to establish progress. You will have repeat xrays of your pelvis prior to thisvisit. Appointment info will be mailed/sent to you. If you have debilitating pain and/or are bed bound status due to your pelvic pain, please notify Nenita Elkins PA-C and we are happy to see you sooner in follow up for repeat imaging. This appointment will be coordinated with or endocrinology colleagues for consultation regarding bone health optimization [facility] If you have any questions or to make/verify appointments - you may contact Dr. Edwards's service at [phone] during business hours For emergent problems - the service may be contacted by calling the [facility] special machine operator [phone] (asking for Dr. Edwards's service) OTHER INFORMATION BLOOD CLOT PROPHYLAXIS: You will be taking Lovenox injections daily for 4 weeks. From an orthopedicstandpoint, the last day of these injections will be on 03/30/24 You have been instructed on the signs and symptoms of deep vein thrombosis. Including??? calf swelling, pain or redness, fevers, chills sweating You have been instructed on the signs and symptoms of pulmonary embolism, which is a blood clot in your lungs Including??? chest pain or shortness of breath Should you develop any of the following symptoms - you should visit at Emergency Room OPERATING A MOTOR VEHICLE: You should abstain from driving until pain is gone, you are full weight bearing, you are comfortable with wearing a seatbelt, you have been off of narcotics for at least 24hours NUTRITION: After sustaining a fracture - it is essential for you to have adequate nutritional intake for optimizing healing. Studies have shown drastic improved outcome for fracture patients with sufficient nutritional status It is recommended you take a multi-vitamin daily if you are not able to achieve recommended daily intake of essential nutrients A balanced diet with recommended daily servings of lean protein, vegetables and grains can help ensure adequate nutrition CALCIUM: It is recommended you obtain adequate calcium in your diet to aid in fracture healing and decrease your fracture risk in the future Recommended intake of calcium per day is 1000 - 1500 mg daily Important dietary sources include??? dairy products (milk, yogurt, cheese), dark green vegetables, canned fish with bones (but not fish fillets), nuts, fortified foods (juices, cereals, waffles, crackers, snack foods) Calcium supplement may be required if intake not possible through diet Optimally should be taken in doses of less than 500 or 600 mg at a time to maximize absorption (absorption decreases with greater calcium loads). Preferred time to take supplements is with meals - calcium is better absorbed in an acidic environment You should also take 1000 units of vitamin D per day in order to aid calcium absorption FACILITATING BONE HEALING: Nicotine inhibits bone healing - it is advised that you avoid tobacco products COMPLETELY! This includes nicotine replacement therapies (vaping, chewing tobacco, gums, patches, etc) IF YOU WERE DIAGNOSED OR HAVE A HISTORY OF OSTEOPOROSIS OSTEOPOROSIS: osteoporosis is decreased bone strength predisposing you to increased risk of fracture. The incidence of fracture is high in people with osteoporosis and increases with age Bone density is the best predictor of fracture - regular bone density studies are recommended Adequate calcium and vitamin D intake from diet and/or supplementation along with physical activityincrease bone density - which can reduce the risk of fractures At your follow up visit in clinic (likely at your 6 weeks follow up visit), you will have an appointment in the fragility clinic for diagnosis and management by an cleaning staff supervisor to help prevent fractures in the future. Treatment options will also be discussed at that visit. Please see nutritional, calcium/vitamin D recommendations above. OUTPATIENT FOLLOW UP Scheduled Appointments 03/30/2024 1:45 PM RST INTAKE VISIT POD D 04 Admitting/Central Scheduling 04/05/2024 10:30 AM DX ROESTEVAN RM 422 SMOP Radiology 04/05/2024 11:00 AM END FRAGILITY FRACTURE PROVIDER 01 ROMB Endocrinology 04/05/2024 11:00 AM Nenita Elkins MPAS, P.A.-C. Orthopedic Surgery For appointment details refer to your Patient Appointment Guide. TEST RESULTS PENDING AT DISCHARGE Pending Labs None DETAILS OF HOSPITAL STAY REASON FOR ADMISSION Fracture Pelvis Other Parts Closed Initial (HCC) HOSPITAL COURSE #1 History Of Falling Kathryn Leon was admitted to [facility] for management of their trauma-related injuries. After an initial trauma evaluation in the emergency department, she was admitted to Trauma-Critical Care-General Surgery (TCGS) for further management and evaluation. A tertiary survey was performed the following morning which revealed no new injuries. #2 Fracture Pelvis Other Parts Closed Initial (HCC) Acute comminuted and displaced right superior, inferior, and pubic body fractures The orthopedic trauma surgery team 3 was consulted. They deferred admission to their service given pelvic bleeding secondary to solitary pelvic injuries. It was determine to proceed with nonoperativemanagement. The patient is weight- bearing as tolerated on her right lower extremity. #[address] Pelvis Imaging: Multifocal sites of active arterial extravasation arising from the replaced leftobturator, right obturator, and right medial circumflex femoral arteries. All sites treated with Gelfoam embolization. The patient is CT pelvis revealed multifocal sites of active arterial extravasation. These were treated with Gel-Foam embolization. Her hemoglobin was monitored throughout her hospital stay, hemoglobin was 8.6 on discharge #4 Vertigo Benign Paroxysmal Positional Bilateral #5 Vertigo #6 Neuropathy Peripheral #7 Mononeuropathy Lower Limb Right The Geriatrics medicine team was consulted to assist with medical management. Fall risk precautionswere implemented for the patient, her home meclizine was held. Per Geriatrics, the risk of this medication is greater than the benefit. A repeat B12 lab was obtained for her neuropathy, this was supratherapeutic at 1299. Her medication list includes gabapentin at home for neuropathy, however patient reports that she does not take this very often, so this was not started during the admission. #8 Osteoporosis The patient takes Fosamax at home, this was held initially during her hospitalization. Her calcium carbonate-vitamin D3 was restarted. #9 Arthritis Rheumatoid (HCC) The patient's NSAIDs were held on admission. #10 Hypertension The patient reported feeling dizzy upon standing, orthostatic vital signs were obtained. #11 Lesion Pancreas Incidental finding on CT imagin mm hypervascular lesion in the pancreatic head (), unchanged since CT 02/03/2007 This was seen on her trauma imaging. No follow-up necessary given no changes in the last 17 years. Physical therapy was consulted to assist with mobilization. Twist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 was also consulted to assist with possible placement/therapy needs. When she was tolerating a regular diet,her pain was well controlled on oral medications, her bowel and bladder function had returned to its prior state andshe was mobilizing with physical therapy/without difficulty she was dismissed to short term rehab facility. CONSULTS ORDERED DURING THIS ADMISSION IP CONSULT TO ORTHOPEDIC SURGERY IP CONSULT TO TRAUMA CRITICAL CARE AND GENERAL SURGERY IP CONSULT TO HOSPITAL INTERNAL MEDICINE IP CONSULT TO CARE MANAGEMENT IP CONSULT TO RADIO SURVEY WORKER BLOOD BANK SPECIALIST IP CONSULT TO CARPENTER INSPECTOR WOUND CARE CONDITION AT DISCHARGE stable Discharge instructions were provided to the patient and caregiver(s). Total time spent in discharge services today: 90 minutes. * Francisco Bridges M.D. - 03/03/2024 10:17 AM CDT Transfer note Briefly, the patient is a 89 y.o. woman seen by the Medicine 1 night team in the ED after being admitted after a sustaining a right superior and inferior pubic ramus fracture in setting of mechanicalfall. Her PMH is significant for osteoporosis on alendronate, RA not on treatment, HTN. Per orthopedic surgery there was no surgical indication. She was also evaluated by [facility] overnight. CTA abdomen showed acute right pelvic fractures with adjacent hematoma and evidence of active bleeding into the space of Retzius and right obturator externus and internus hematoma. She then went to the IR for gelfoam embolization successfully at the femoral artery medial circumflex level. However, in the setting of concern for ongoing bleeding that warranted IR evaluation and management the decision was made that the patient would transfer to the [facility] service. 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 Please identify this service name if you callwith questions after hospitalization. * Discharge Instr - Activity* Renee Rios P.A.-C., M.S. - 03/04/2024 9:39 AM CDT Activity SPECIAL INSTRUCTIONS Care Following Your Catheter Procedure: The information is meant to help you recover after your catheter procedure. After being sedated, itis common to have lapses of memory, slowed reaction time and impaired judgment. Arrange for someoneto accompany you to and from your appointment and drive you home. For the rest of the day after being sedated: - Rest - Do not drive or operate motorized vehicles or equipment - Do not take on responsibility for children or anyone who depends on your care - Do not use exercise equipment or take part in rough play or sports - Do not drink alcoholic beverages Care for groin puncture site Call your physician if you have any of the following symptoms: Bleeding or swelling at the puncture site. New or increasing swelling. Pain or discomfort at the puncture site that is not helped by taking acetaminophen (Tylenol???). Signs of infection (redness, drainage, fever) at the puncture site. Change in color, temperature or sensation in the arm or leg of the puncture site. Unusual feelings of weakness or faintness. Bathing You may shower 48 hours after your procedure. At that time, you may take off the bandage. For 7-10 days after your procedure, do not soak in a tub. Keep the site clean and dry. Do not use creams or powders on the puncture site. Discomfort Normally, the site of the puncture is slightly tender and swollen. There may be a small area of discoloration or a small knot in the area of the puncture. Tenderness at the puncture site may continue for one to two days. You may take a nonaspirin pain reliever containing acetaminophen such as Tylenol??? in the recommended dose as needed for discomfort. Medications Take all your previously prescribed medications, including aspirin, as you normally do unless your physician tells you otherwise. If you have active bleeding or swelling of the puncture site: Call 911 or your designated emergency number. Lie down and apply firm pressure with 2 or 3 fingers over the puncture site until help arrives. Do not drive yourself to the hospital. Activity Up to three days after your procedure, avoid strenuous activities and do not take part in sports. Do not: Lift or move objects that weigh more than 10 pounds. Do strenuous exercise (biking, weight lifting, aerobics, golfing). Strain Take part in sexual activity * Attachments The following attachments cannot be sent through Care Everywhere. * Acetaminophen (By mouth) (Polish) * Ondansetron (By mouth, Into the mouth) (Polish) * Oxycodone, Rapid Release (By mouth) (Polish) * Diclofenac (On the skin) (Polish) * Lidocaine (On the skin) (Polish) * Polyethylene Glycol 3350 (By mouth) (Polish) * Simethicone (By mouth) (Polish) * Laxative, Stimulant Combination (By mouth) (Polish) documented in this encounter Medications at Time of Discharge Medication Sig Dispensed Refills Start Date End Date acetaminophen (TylenoL) 325 mg tablet Take 2 tablets (650 mg total) by mouth every 4 (four) hours as needed for pain for up to 14 days. 50 tablet 03/08/2024 alendronate (FOSAMAX) 70 mg tablet TAKE 1 TABLET EVERY 7 DAYS (WEEKLY) ON AN EMPTY STOMACH, REMAIN UPRIGHT FOR AT LEAST 30 MINUTES 12 tablet 3 03/05/2022 alendronate (FOSAMAX) 70 mg tablet TAKE 1 TABLET EVERY 7 DAYS (WEEKLY) ON AN EMPTY STOMACH REMAIN UPRIGHT FOR AT LEAST 30 MINUTES 12 tablet 3 09/10/2023 alendronate (Fosamax) 70 mg tablet Take 70 mg by mouth over 168 hr. 09/10/[address] tablet Take 81 mg by mouth daily. calcium carbonate-vitamin D3 1,500 mg (600 mg calcium)-10 mcg (400 Unit) per tablet Take 1 tablet by mouth 2 (two) times a day with meals. colchicine (COLCRYS) 0.6 mg tablet daily as needed. 10/21/2021 CYANOCOBALAMIN, VITAMIN B-12, ORAL Take 1,000 mcg by mouth daily. 10/25/2010 cycloSPORINE (RESTASIS) 0.05 % ophthalmic emulsion Administer 1 drop into both eyes 2 (two) times a day. diclofenac sodium (Voltaren) 1 % gel Apply 4 g topically 4 (four) times a day. Apply to painful areas. Do not place over areas of broken skin 20 g 03/08/2024 dorzolamide-timoloL (COSOPT) 22.3-6.8 mg/mL ophthalmic solution Administer 1 drop into the right eye daily. ferrous sulfate 325 mg (65 mg iron) tablet Take 1 tablet by mouth daily. 11/02/2013 fexofenadine-pseudoeph edrine (ROCHELLE-D) 60-120 mg per 12 hr tablet Take 1 tablet by mouth 2 (two) times a day. 180 tablet 1 02/18/2024 fluorouraciL (EFUDEX) 5 % cream Apply topically twice daily for 46 weeks 40 g 12/31/2023 fluticasone propionate (FLONASE) 50 mcg/actuation nasal spray Administer 2 sprays into each nostril daily as needed for rhinitis or allergies. 16 g 12 05/14/2019 gabapentin (Neurontin) 100 mg capsule daily as needed. 11/02/2023 hydroCHLOROthiazide 12.5 mg tablet Take 1 tablet (12.5 mg total) by mouth daily for 28 days. HOLD medication until restarted by PCP 28 tablet 03/09/2024 04/06/2024 lidocaine (Salonpas, lidocaine,) 4 % adhesive patch,medicated Place 1 patch on the skin every 12 (twelve) hours as needed (pain) for up to 28 days. 28 patch 03/08/2024 04/05/2024 losartan (Cozaar) 25 mg tablet Take 1 tablet (25 mg total) by mouth daily for 28 days. HOLD medication until restarted by PCP 03/09/2024 04/06/2024 MULTIVITAMIN ORAL Take 1 tablet by mouth daily. 10/25/2010 omeprazole (PriLOSEC) [address] capsule Take 1 capsule by mouth daily. 05/20/2019 ondansetron ODT (Zofran-ODT) 4 mg disintegrating tablet Dissolve 1 tablet (4 mg total) in the mouth every 8 (eight) hours as needed for nausea or vomiting. 20 tablet 03/08/2024 polyethylene glycol (Miralax) 17 gram powder packet Take 1 packet (17 g total) by mouth daily for 27 days. Dissolve each 17 g dose in 240 mLs (8 ounces) of beverage. 27 packet 03/09/2024 04/05/2024 sennosides-docusate sodium (Senokot-S) 8.6-50 mg per tablet Take 1 tablet by mouth 2 (two) times a day for 28 days. 54 tablet 03/08/2024 04/05/2024 oxyCODONE (Roxicodone) 5 mg immediate release tabletIndications:Acut e Pain Exception Take 1 tablet (5 mg total) by mouth every 4 (four) hours as needed for severe pain or score 7-10 of 10 (for breakthrough pain) for up to 14 days Indication: Acute Pain Exception. 20 tablet 03/09/2024 03/23/2024 simethicone 80 mg chewable tablet Chew 1 tablet (80 mg total) 4 (four) times a day as needed for flatulence (flatulence) for up to 14 days. 20 tablet 03/08/2024 03/22/2024 documented as of this encounter Progress Notes * Brayan Moffett L.G.SAdlaid, M.S.W. - 03/09/2024 12:27 PM CDT SUBJECTIVE Social Work engaged in record review and communicated with interdisciplinary team prior to meeting with patient to provide updates and discuss discharge plans. Patient was sleeping but roused to engage in conversation. Mrs. Leon was informed that [facility] facility could not accept today (maybe tomorrow). Social Work reminded patient about hospital's Broad Referral; she expressed understanding but indicated that she prefers to be somewhere between [place] and [place] (to be closer to family and home). She also became tearful remembering bad experience she had with her father's stay at [facility] (but was agreeable, in the end, to having a referral sent there, too). Subsequently, Social Work sent additional referrals (see below). Social Work later provided update of accepting facility. Patient was agreeable to the discharge plan and said she had spoken with family about her aforementioned concern (bad experience of family member at that facility) and felt better after the conversation about the prospect of her discharging to there. Patient reported no needs or questions at conversation's end and thanked Social Work for support. Social Work wished her well on her healing journey. Anticipated Needs Skilled rehab in a facility ASSESSMENT / PLAN Assessment The Person(s) Present During Interview: patient appeared to have insight into needs at this time and to be planning appropriately for discharge needs. They report agreement with the below plan with no further questions at this time. OBJECTIVE Mrs. Kathryn Leon is an 89-year-old female patient hospitalized on [facility] 05C, Room 139 (for History ofFalling). At time of visits, patient was resting in her hospital bed or sitting up in her chair. The patient was seen for ongoing discharge needs. A list of long-term facility swing bed/MPACoptions (that patient/family geographically resides or requests) has been provided to and reviewed with patient/family. Disclaimers: Medicare/commercial Insurance: Patient and/or family/responsible constitution party were informed of contracted providers with their insurance plan. If available, choices were provided. Reviewed insurance coverage, provided patient with in-network options if applicable. Patient/family have indicated a preference for the facility/agency below. PLAN The patient is being prepared to discharge on 03/09/2024 at 3:00 p.m. if medically ready for transfer. Contact SOCIAL WORK if time needs to be changed. Transportation will be provided by family. [Social Work provided patient with printout of admissions-related information, including address, numbers to call, and door to enter facility.] Destination - Admitted Since 03/02/2024 Service Provider Selected Services Address Phone Fax Patient Preferred [facility] [address] [place] [address] [phone] -- Contact: Admissions Transportation oxygen: No oxygen needed. NURSING: - Complete documentation in the Discharge Navigator including Nursing Report Info and Facility/NextLevel of Care Info - Contact facility to give report on day of discharge: [phone] - Send After Visit Summary and required packet of dismissal information with patient, including advance directive. - Facility indicated that any orders or DC paperwork can be faxed to [phone]). PRIMARY SERVICE: - Provider to Provider call is not required. - Provide written prescriptions for all narcotics. After Visit Summary to Include: - All discharge medications include dosage, times for administration, diagnosis, and stop date. - Ongoing care - wound care, infection precautions and phone numbers to call. SOCIAL WORK: -Pre-admission screen has been completed: [id number] -Patient said her son has a wheelchair van and can provide transportation, with appropriate advancenotice (at least an hour). -Social Work will assist with transition planning and will offer supportive visits as necessary during remainder of patient's hospital stay. Kwesi Arnett, M.S.W. 03/09/2024 * Nelly Llanes M.A., O.T., [facility] - 03/09/2024 9:17 AM CDT Occupational Therapy [facility] Inpatient Treatment SUBJECTIVE Patient's Name: Kathryn Leon Referring/Attending Provider: Aries Sinha M.D. Reason for Referral: Occupational Therapy Evaluation and Treatment History of Present Illness: Kathryn Leon is a 89 y.o. female who was admitted to [facility] in [place] on 03/02/2024 for Fracture Pelvis Other Parts Closed Initial (HCC) [S32.89XA]. Precautions Weight Bearing Status: WBAT RLE Other Precautions: Fall precautions Pain Assessment: Pain not reported during session. Subjective Comments: Agreeable to therapy session. Team Communication: The patient's status was discussed and coordination of care occurred with RN OBJECTIVE Vital Signs: Vitals taken during session: Pulse rate: 78 bpm, Blood pressure: 140/51 mmHg, MAP: 74, O2 saturation: 98%, and O2 flow: Room air Outcome Measures: [facility] Inpatient Short Form: Putting on and taking off regular lower body clothing?: A Little Putting on and taking off regular upper body clothing?: None Taking care of personal grooming such as brushing teeth?: A Little Bathing (including washing, rinsing, drying)?: A lot Toileting, which includes using toilet, bedpan, or urinal?: A lot Eating meals?: None Daily Activities Raw Score (max 24): 18 Daily Activities Standardized Score: 38.66 Interpretation: Based on scoring guidelines using the raw score value: Those going to home had an average score at or above 18 Those going to facility had an average score at or below 17 Clinicians answer the [facility] Inpatient Short Form based on observed patient activity and/or clinical judgement (ie. patient can be scored without physically performing each activity) Cognition: - Cognitive Assessment Method: Therapist observations - Orientation: Oriented x4 - Arousal/Alertness: Appropriate responses to stimuli - Following Commands: Follows all commands without difficulty - Attention: Addressed, no concerns noted Therapeutic Interventions: ACTIVITIES OF DAILY LIVING: GROOMING - Assist Level: Supervision/Set-up - Patient Location: Seated on edge of bed - Activity: Brushing teeth - regular or soft brush, Washing face - Therapist Delivery: assessed - Assist/Cues: none FEEDING - Assist Level: Independent - Patient Location: Edge of bed - Activity: open containers, bring food to mouth, bring drink to mouth - Therapist Delivery: assessed - Assist/Cues: none FUNCTIONAL TRANSFERS: SIT to STAND - Assist Level: Contact Guard Assist - Equipment: front wheeled walker and gait belt - Surface: Bed - Therapist Delivery: assessed - Assist/Cues: none STAND to SIT - Assist Level: Contact Guard Assist - Equipment: front wheeled walker and gait belt - Surface: Bed - Therapist Delivery: assessed - Assist/Cues: none Education/Training Provided: Bathroom DME: - Educated patient/caregiver regarding recommended use of bathroom safety equipment to optimize safety during bathing and toileting. Patient has a shower stool at home. Activity Modification: - Patient was educated on activity modification and how to apply those techniques to activities of daily living. Patient was left edge of bed at end of session with call light in reach, all needs met and questions answered. Assessment Discharge Therapy Needs - OT: Ongoing skilled occupational therapy If skilled therapy is recommended, skilled therapy can include occupational therapy provided in home health, outpatient or post-acute facility. The location of these services is determined by patient's care team in partnership with patient/family. Barriers to Discharge Home: Current functional status, Fall risk, Inaccessible home environment, Limited caregiver availability Level of Care Needed - OT: Assistance with toileting, Assistance with meal preparation, Assistance with toilet/shower transfers, Assistance with showering/bathing, Assistance with dressing, Assistance with transportation, Assistance with housekeeping, Assistance with shopping, Physical assistance ne eded Clinical Impression: Patient motivated for therapy, as demonstrated by her active participation. Patient able to performlower body dressing with minimal assistance. Patient performed sit to stand transfer with contact guard assistance and front wheel walker. Patient reports plans to go to a facility for rehab, prior to returning home. Patient will continue to benefit from occupational therapy to return to prior level of function. Plan OT Plan Comments: toileting; Functional Goals: OT Goal #1: Patient will complete toileting tasks and transfer with modified independence in order to return to prior level of function upon discharge. OT Goal #1 Status: Progressing OT Goal #2: Patient will verbalize and demonstrate understanding of use of DME in order to promote safety and independence upon discharge. OT Goal #2 Status: Progressing OT Goal #3: Patient will complete total body dressing with modified independence in order to returnto prior level of function upon discharge. OT Goal #3 Status: Ongoing Progress: Progressing toward goals Rehab potential: Ms. Leon has good potential to achieve established occupational therapy goals within the time frame outlined below. OT Frequency: OT Amount: 1 visit per day OT Frequency: 5 times per week OT Inpatient Duration : Until goals are met or hospital discharge Requires Inpatient OT Follow-Up: Yes OT - Next Inpatient Appointment: 03/10/24 Plan: Continue with current plan Treatment interventions may include: Treatment Interventions: Therapeutic exercise, Therapeutic functional activity, Self-care/home management, Cognitive skills training Occupational Therapy Attestation Statement: Patient agrees with the plan of care and goals. Billing: Time Spent with Patient Therapeutic Interventions Home Management Training (min): 25 min Time Tracking Total Timed Units (min): 25 min Total Treatment Time (min): 25 min Yanet Llanes M.A., O.T., BCPR * Cristopher Bowers M.T.S. - 03/09/2024 9:00 AM CDT [facility] Spiritual Care Progress Note Patient: Kathryn Leon Age:89 y.o. Location: [address] Reason(s) for encounter: Spiritual Care contact to introduce spiritual care service and assess for potential spiritual care needs. Spiritual Care contact for ongoing spiritual care. Spiritual Care contact per Kathryn's request. Spiritual Care contact for uatsdin rites/sacramental encounter. Summary: I was able to meet with Kathryn Leon who was in bed and able to engage. Kathryn welcomed spiritual care support. Kathryn shared that she was doing much better and should go today but was told that they have not found a facility for her. Kathryn noted that it has become a big issue finding a place.She indicated that she would like to receive Holy Communion. The sacrament was administered. Sacraments administered: The Sacrament of Communion was administered with blessing and prayer Spiritual Assessment Confucianism Identification / Spiritual Practices: Kathryn is a Yazidism Coping and support: Kathryn shared that she has family support. Spiritual well-being, hopes and resources: Kathryn received Holy Communion. Spiritual Needs and/or Concerns: Kathryn stated that finding a facility for her to go was an issue. Spiritual Care interventions: Introduced the role as member of the interdisciplinary care team and assessed spiritual care needs/concerns of patient and/or family Therapeutic and supportive listening was provided with the aim of allowing patient/family expression of emotions, hopes and worries regarding current medical condition and life stage. Facilitated uatsdin/spiritual practices (prayer, blessing, sacred texts, uatsdin item) with theaim to reinforce patient's spiritual wellness and connection with source of sacredness. Spiritual Care outcomes: Patient/family became familiar with the role of spiritual care provider and identified spiritual care needs. Patient/family achieved a sense of spiritual peace. Patient/family expressed feeling comforted by prayer Patient/family expressed peace, comfort through meeting of ritual/sacramental needs. Patient/family was appreciative of spiritual care support. Spiritual Care Plan / Recommendations: Will remain available for spiritual care as needed or requested. Chaplains can be contacted by paging [phone] ([place]) or [phone] (Spiritism). * Renée Brannon M.D. - 03/09/2024 6:40 AM CDT Trauma Surgery Progress Note Admission Date/Time: 03/02/2024 10:47 PM Trauma Level: Green Mechanism of Injury: Fall down stairs; approximately 2 steps. HPI: Ms. Loen is a 89 y.o. female who and acute comminuted displaced right superior pubic rami fracture right inferior pubic rami fracture and intramuscular hematoma due to ground level fall. SUBJECTIVE NAEON. She has remained afebrile and stable overnight. She has had systolic blood pressures to the 160s. This morning, she is saturating well on room air. She has had 700mL urine output over the last24 hours, as well as 1 unmeasured urine occurrence. She had one small bowel movement overnight. Shecontinued to work with PT and looks forward to discharging today. OBJECTIVE I/O 03/07 0701 03/08 0700 03/08 0701 03/09 0700 P.O. 2380 1405 Total Intake(mL/kg) 2380 (34.5) 1405 (19.5) Urine (mL/kg/hr) 750 (0.5) 700 (0.4) Other 1 Stool 0 Total Output 751 700 Net +1629 +705 Unmeasured Urine Occurrence 2 x 1 x Unmeasured Stool Occurrence 3 x Lab Review: Recent Labs 03/07/242120 HGB 8.6 L HCT 25.1 L PLT 169 WBC 6.1 No results for input(s): INR, PT, APTT in the last 48 hours. Recent Labs 03/07/242120 NA 132 L KSERUM 4.7 CL 94 L BICARB 27 BUN 37 H CREATININE 1.15 H GLUCOSE 132 CALCIUM 9.2 . Physical Exam General: Not in acute distress. Appears stated age. Skin: Warm and well perfused. Scattered ecchymosis consistent with fall. HEENT: Normocephalic, atraumatic.EOML. Respiratory: Nonlabored breathing on room air Abdomen: Soft nontender to palpation. Extremities: Bilateral lower extremities without pitting edema. Neuro: No focal neurologic deficits Consult Orders: IP CONSULT TO ORTHOPEDIC SURGERY IP CONSULT TO TRAUMA CRITICAL CARE AND GENERAL SURGERY IP CONSULT TO HOSPITAL INTERNAL MEDICINE IP CONSULT TO CARE MANAGEMENT IP CONSULT TO RADIO SURVEY WORKER BLOOD BANK SPECIALIST IP CONSULT TO CARPENTER INSPECTOR WOUND CARE ASSESSMENT / PLAN 03/09: Ms. Leon is doing well overall. She has been mobilizing well with PT/OT and is meeting hermobility goals. She will discharge to [facility] today pending availability. Today's Plan - continue mobilizing with physical therapy - continue to hold hypertension medications Dispo: [facility] discharge #1 History Of Falling - TTS: completed 03/03 - SAS: completed 03/03 - Care management consulted for disposition assistance - PT/OT consulted for safety evaluation #2 Fracture Pelvis Other Parts Closed Initial (HCC) Acute comminuted and displaced right superior, inferior, and pubic body fractures - OTS-3 (79446) consulted; not following - OTS-3 defers admission to their service given pelvic bleeding secondary to solitary pelvic injuries - Non-operative management at this juncture - Activity: RLE WBAT #[address] Pelvis Imaging: Multifocal sites of active arterial extravasation arising from the replaced leftobturator, right obturator, and right medial circumflex femoral arteries. All sites treated with Gelfoam embolization. - follow hemoglobin #3 Vertigo Benign Paroxysmal Positional Bilateral #4 Vertigo - Fall risk precautions in place - Holding meclizine #5 Neuropathy Peripheral #6 Mononeuropathy Lower Limb Right - Per Geriatric recommendations, obtain repeat B12 (last checked 2013) - Gabapentin (Neurontin) 100 mg capsule and med list, however patient reports rarely taking #7 Osteoporosis - Restarted: Calcium carbonate-vitamin D3 - Holding: -- Alendronate (FOSAMAX) 70 mg tablet; not started #8 Arthritis Rheumatoid (HCC) - Holding NSAIDS #3 Hypertension - Discontinue orthostatic vital measurements - No longer orthostatic with appropriate fluid resuscitation #9 Lesion Pancreas Incidental finding on CT imagin mm hypervascular lesion in the pancreatic head (), unchanged since CT 02/03/2007 - No follow-up necessary given no changes in the last 17 years #3 Failure Renal Acute (Acute Kidney Injury) (HCC) Creatinine on admission 1.3 versus baseline 0.9 - Avoid nephrotoxic agents including NSAIDs - Hold the following medications given decreased renal functioning: -- Losartan (COZAAR) 25 mg tablet; not started -- Hydrochlorothiazide (HYDRODIURIL) 12.5 mg tablet; held If you have any questions or concerns regarding the cares of Ms. Leon, please contact Trauma Surgery at [phone]. * Danielito Lira PMaikel, D.P.T. - 03/08/2024 11:10 AM CDT Physical Therapy Inpatient Treatment SUBJECTIVE Patient's Name: Kathryn Leon Referring/Attending Provider: Aries Sinha M.D. Reason for Referral: Physical Therapy Evaluate and Treat History of Present Illness: Kathryn Leon is a 89 y.o. female who was admitted to [facility] in [place] on 03/02/2024 for Fracture Pelvis Other Parts Closed Initial (HCC) [S32.89XA] Precautions Weight Bearing Status: WBAT RLE Other Precautions: Fall precautions Pain Assessment: Rated pain 0/10 at rest, 6-7/10 to right hip/pelvis with activity. PT session had been coordinated with nursing so that patient had received pain medication prior to therapy. Patient/Caregiver Goals: Return to home and Return to prior level of function Subjective Comments: Patient agreed to session. OBJECTIVE Vital Signs Pre-Activity: Pulse Rate: 83 bpm Blood Pressure: 145/57 (74) mmHg O2: 98% Room air Patient had no signs or symptoms consistent with vital sign changes during therapy session. Outcome Measures: AM-PAC Inpatient Short Form: AM-PAC Basic Mobility (V.2) How much help from another person do you currently need???If the patient hasn't done an activity recently, how much help from another person do you think he/she would needif he/she tried? 1. Turning from your back to your side while in a flat bed without using bedrails?: A Lot 2. Moving from lying on your back to sitting on the side of a flat bed without using bedrails?: A Lot 3. Moving to and from a bed to a chair (including a wheelchair)?: A Little 4. Standing up from a chair using your arms (e.g., wheelchair, or bedside chair)?: A Little 5. To walk in hospital room?: A Little 6. Climbing 3-5 steps with a railing?: A Lot [facility] Basic Mobility (V.2) Raw Score: 15 [facility] Basic Mobility (V.2) Standardized Score: 36.97 Interpretation: Based on scoring guidelines using the raw score value: Those going to home had an average score at or above 18 Those going to facility had an average score at or below 17 Clinicians answer the [facility] Inpatient Short Form based on observed patient activity and/or clinical judgement (ie. patient can be scored without physically performing each activity) Therapeutic Interventions: SIT TO STAND: Assistance Level: Contact Guard Assistance of 1 Device: gait belt and front wheeled walker Surface: Chair Assistance/Cueing: no cueing required STAND TO SIT: Assistance Level: Contact Guard Assistance of 1 Device: gait belt and front wheeled walker Surface: Chair Assistance/Cueing: verbal for Alignment with seated surface GAIT: Distance: 15 meters Assistance Level:Contact Guard Assistance of 1 Device: gait belt and front wheeled walker Quality: antalgic, decreased gait speed, decreased stance time on the right, decreased step length,decreased weight bearing tolerance, guarded, step-to pattern Assistance/Cueing: Step by step verbal cues provided for sequencing with emphasis on weight bearingthrough upper extremities into walker during single limb support on the right to help with offloading and pain control. Patient noted to be placing a lot of weight through her arms when advancing theright lower extremity as well; encouraged less weight through arms during this phase of the gait cycle to help reduce fatigue and upper extremity soreness, which have been limiting factors for the patient. Comments: Able to progress distance relative to previous sessions and continues to demonstrate improvement with foot clearance bilaterally. Rated pain 6-7/10 with ambulation but stated she felt it was more tolerable today. THERAPEUTIC EXERCISE: Seated Therapeutic Exercise: Side: bilateral, lower extremity(ies) Mode: active range of motion Exercises: Ankle pumps and Long arc quads Repetitions: 1 x 10 Assist/cueing: Eccentric control and Full range of motion The patient's status was discussed and the following coordination of care occurred with the drop forger/Caregiver Present: No Patient was left in bedside chair at end of session with call light in reach, all needs met and questions answered. Assessment Discharge Therapy Needs - PT: Ongoing skilled physical therapy If skilled therapy is recommended, skilled therapy can include physical therapy provided by home health, outpatient clinic, or a post-acute facility. The location of these services is determined by the patient's care team in partnership with patient/family. Level of Care Needed - PT: Assistance with bed mobility, Assistance with transfers, Assistance withwalking and moving around the home, Assistance with stairs Equipment Recommended - PT: Front-wheeled walker Barriers to Discharge Home: Current functional status, Fall risk, Inaccessible home environment, Limited caregiver availability Clinical Impression: Kathryn continues to progress gradually each day in physical therapy. Today she increased her ambulation distance to about 50 feet and she continues to demonstrate improvement with foot clearance. She stated that she can tell it is getting easier for her to walk, and she did not feel quite as limited by pain today (though she rated it the same as previous days). She remains well below her functionalbaseline and would benefit from continued physical therapy to further optimize her safety and independence with mobility. Rehab potential: Ms. Leon has Good potential to achieve established physical therapy goals within the time frame outlined below. Progress: Slow progress, limited activity tolerance Plan PT Plan Comments: Progress bed mobility, transfer training and gait training as tolerated. Coordinate with nursing to ensure pain medication on board prior to session. Functional Goals: PT Inpatient Goals PT Goal #1: Patient will complete supine to/from sitting transitions with modified independence while maintaining activity precautions to demonstrate return to functional baseline PT Goal #1 Status: Ongoing PT Goal #2: Patient will complete sit to/from stand transitions with modified independence using least restrictive assistive device while maintaining activity precautions to demonstrate progression toward functional baseline PT Goal #2 Status: Progressing PT Goal #3: Patient will ambulate 35 m with modified independence using least restrictive assistivedevice while maintaining activity precautions to demonstrate progression toward functional baselineand enable safe household distance ambulation PT Goal #3 Status: Slowly progressing PT Goal #4: Patient will negotiate 4 stairs with modified independence using least restrictive assistive device while maintaining activity precautions to enable safe entrance into the home PT Goal #4 Status: Ongoing Treatment Plan: Plan: Continue with current plan PT Frequency: 5 times per week PT Inpatient Duration : Until goals are met or hospital discharge Requires Inpatient Follow-Up: Yes PT - Next Inpatient Appointment: 03/09/24 Patient agrees with the plan of care and goals. Treatment interventions may include: Treatment/Interventions: Therapeutic exercise, Therapeutic functional activity, Neuromuscular re-education, Gait training, Self-care/home management Billing: Time Spent with Patient Therapeutic Interventions Gait Training (min): 24 min Time Tracking Total Timed Units (min): 24 min Total Treatment Time (min): 24 min Danielito Lira P.T., D.PMaikel * Fercho Westfall Emilio - 03/08/2024 10:00 AM CDT [facility] Spiritual Care Progress Note Patient: Kathryn Leon Age:89 y.o. Location: [id number] Reason(s) for encounter: Spiritual Care contact to introduce spiritual care service and assess for potential spiritual care needs. Summary: I was able to meet with Kathryn Leon today. She fell at home and broke her pelvis. She requested the Sacrament of Holy communion. She needs the low Gluten hosts. Spiritual Assessment Confucianism Identification / Spiritual Practices: Yazidism. Mrs. 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 Her gifts align with acts of service and hospitality which is a big part of her spiritual life. Coping and support: Mrs. Leon shared that she has a lot of family and some very good neighbors that provide a great support system. Grief: Mrs. Leon is still dealing with some very fresh feelings of grief. Her five months ago and they spent 60+ years together and even worked together for 12 years. She has a lot oflove for her and so her grief is especially painful. She has good days and tough days. Spiritual Care interventions: Introduced the role as member of the interdisciplinary care team and assessed spiritual care needs/concerns of patient and/or family Therapeutic and supportive listening was provided with the aim of allowing patient/family expression of emotions, hopes and worries regarding current medical condition and life stage. Facilitated uatsdin/spiritual practices (prayer, blessing, sacred texts, uatsdin item) with theaim to reinforce patient's spiritual wellness and connection with source of sacredness. Spiritual Care outcomes: Patient/family was appreciative of spiritual care support. Spiritual Care Plan / Recommendations: Will remain available for spiritual care as needed or requested. Chaplains can be contacted by paging [phone] ([place]) or [phone] (Spiritism). * Nelly Llanes M.A., O.T., [employer] - 03/08/2024 9:19 AM CDT Occupational Therapy [facility] Inpatient Treatment SUBJECTIVE Patient's Name: Kathryn Leon Referring/Attending Provider: Aries Sinha M.D. Reason for Referral: Occupational Therapy Evaluation and Treatment History of Present Illness: Kathryn Leon is a 89 y.o. female who was admitted to [facility] in [place] on 03/02/2024 for Fracture Pelvis Other Parts Closed Initial (HCC) [S32.89XA]. Precautions Weight Bearing Status: WBAT RLE Other Precautions: Fall precautions Pain Assessment: Pain not reported during session. Subjective Comments: Agreeable to therapy session. Team Communication: The patient's status was discussed and coordination of care occurred with RN OBJECTIVE Vital Signs: Vitals taken during session: Pulse rate: 77 bpm, Blood pressure: 157/58 mmHg, MAP: 83, O2 saturation: 98%, and O2 flow: Room air Outcome Measures: [facility] Inpatient Short Form: Putting on and taking off regular lower body clothing?: A Little Putting on and taking off regular upper body clothing?: None Taking care of personal grooming such as brushing teeth?: A Little Bathing (including washing, rinsing, drying)?: A lot Toileting, which includes using toilet, bedpan, or urinal?: A lot Eating meals?: None Daily Activities Raw Score (max 24): 18 Daily Activities Standardized Score: 38.66 Interpretation: Based on scoring guidelines using the raw score value: Those going to home had an average score at or above 18 Those going to facility had an average score at or below 17 Clinicians answer the [facility] Inpatient Short Form based on observed patient activity and/or clinical judgement (ie. patient can be scored without physically performing each activity) Cognition: - Cognitive Assessment Method: Therapist observations - Orientation: Oriented x4 - Arousal/Alertness: Appropriate responses to stimuli - Following Commands: Follows all commands without difficulty - Attention: Addressed, no concerns noted Therapeutic Interventions: ACTIVITIES OF DAILY LIVING: GROOMING - Assist Level: Supervision/Set-up - Patient Location: Chair - Activity: Washing face, Applying make-up - Therapist Delivery: assessed - Assist/Cues: none - Patient did not feel like she could trial standing grooming this date, as she feels the need to hold onto the walker with both hands. LOWER BODY DRESSING - Assist Level: Minimal Assist - Patient Location: Edge of bed - LB Dressing Item: socks - Therapist Delivery: assessed, instructed, assisted, facilitated - Assist/Cues: verbal and tactile for technique - Patient requires assistance to get socks started over her feet. Patient able to pull socks up once over the heel. FUNCTIONAL TRANSFERS: SIT to STAND - Assist Level: Contact Guard Assist - Equipment: front wheeled walker and gait belt - Surface: Bed - Therapist Delivery: assessed, facilitated - Assist/Cues: verbal for proper hand placement, anterior weight shift STAND to SIT - Assist Level: Contact Guard Assist - Equipment: front wheeled walker and gait belt - Surface: Chair - Therapist Delivery: assessed, facilitated - Assist/Cues: verbal for proper hand placement, eccentric control FUNCTIONAL MOBILITY: In-room mobility performed with contact guard assistance and front wheeled walker and gait belt Education/Training Provided: Activity Modification: - Patient was educated on activity modification and how to apply those techniques to activities of daily living. Patient was left in bedside chair at end of session with call light in reach, all needs met and questions answered. Assessment Discharge Therapy Needs - OT: Ongoing skilled occupational therapy If skilled therapy is recommended, skilled therapy can include occupational therapy provided in home health, outpatient or post-acute facility. The location of these services is determined by patient's care team in partnership with patient/family. Barriers to Discharge Home: Current functional status, Fall risk, Inaccessible home environment, Limited caregiver availability Level of Care Needed - OT: Assistance with toileting, Assistance with meal preparation, Assistance with toilet/shower transfers, Assistance with showering/bathing, Assistance with dressing, Assistance with transportation, Assistance with housekeeping, Assistance with shopping, Physical assistance ne eded Clinical Impression: Patient motivated for therapy, as demonstrated by her active participation. Patient able to performlower body dressing with minimal assistance. Patient performed sit to stand transfer with contact guard assistance and front wheel walker. Patient ambulated with front wheel walker and contact guard assistance. Patient reports plans to go to a facility for rehab, prior to returning home. Patient will continue to benefit from occupational therapy to return to prior level of function. Plan OT Plan Comments: progress mobility; toileting; Functional Goals: OT Goal #1: Patient will complete toileting tasks and transfer with modified independence in order to return to prior level of function upon discharge. OT Goal #1 Status: Ongoing OT Goal #2: Patient will verbalize and demonstrate understanding of use of DME in order to promote safety and independence upon discharge. OT Goal #2 Status: Ongoing OT Goal #3: Patient will complete total body dressing with modified independence in order to returnto prior level of function upon discharge. OT Goal #3 Status: Ongoing Progress: Progressing toward goals Rehab potential: Ms. Leon has good potential to achieve established occupational therapy goals within the time frame outlined below. OT Frequency: OT Amount: 1 visit per day OT Frequency: 5 times per week OT Inpatient Duration : Until goals are met or hospital discharge Requires Inpatient OT Follow-Up: Yes OT - Next Inpatient Appointment: 03/09/24 Plan: Continue with current plan Treatment interventions may include: Treatment Interventions: Therapeutic exercise, Therapeutic functional activity, Self-care/home management, Cognitive skills training Occupational Therapy Attestation Statement: Patient agrees with the plan of care and goals. Billing: Time Spent with Patient Therapeutic Interventions Home Management Training (min): 26 min Time Tracking Total Timed Units (min): 26 min Total Treatment Time (min): 26 min Yanet Llanes M.A., O.T., BCPR * Antonia Driscoll L.G.SGurdeep., M.S.W. - 03/08/2024 8:47 AM CDT SUBJECTIVE Social Work communicated with Service, Nursing, and [facility] regarding discharge with short term rehab to TCU. Social Work inquired regarding patient's insurance coverage for transportation. OBJECTIVE Patient was pended for admission to [facility] this day. Anticipated discharge at [facility] is no longer anticipated to occur. Patient is pended for admission to [facility] for 03/09/24. ASSESSMENT / PLAN ASSESSMENT Patient is medically ready and awaiting discharge to short term rehab. PLAN Patient anticipates discharging to [facility]. Social Work will continue to follow to assist with discharge needs. Social Work will continue to follow to provide support. Kwesi Dooley, M.S.W. 03/08/24 * Antonia Driscoll L.G.S.W., M.S.W. - 03/08/2024 8:34 AM CDT SUBJECTIVE Social Work met with patient in her hospital room and discussed discharge planning and patient's recent loss of her this month. Social Work communicated with Service, [facility], and [facility]. OBJECTIVE Patient is medically ready for discharge to short term rehab. ASSESSMENT / PLAN ASSESSMENT Patient is awaiting placement, hopefully in [facility]. She is pended for consideration of admission on 03/09/24. She is agreeable to referral being sent to [facility] in [place], [place]. PLAN -Patient desires discharge to short term rehab with strong preference for [facility]. -Patient's son can provide wheelchair transportation including wheelchair. -Social Work will assist with transition planning and will offer supportive visits as necessary during remainder of patient's hospital stay. Kwesi Dooley, M.S.W. 03/09/24 * Renée Brannon M.D. - 03/08/2024 6:36 AM CDT Trauma Surgery Progress Note Admission Date/Time: 03/02/2024 10:47 PM Trauma Level: Green Mechanism of Injury: Fall down stairs; approximately 2 steps. HPI: Ms. Leon is a 89 y.o. female who and acute comminuted displaced right superior pubic rami fracture right inferior pubic rami fracture and intramuscular hematoma due to ground level fall. SUBJECTIVE NAEON. She has remained afebrile and stable overnight. She has had systolic blood pressures to the 160s. This morning, she is saturating well on room air. She has had 750mL urine output over the last24 hours, as well as 2 unmeasured urine occurrences. She had 3 stool occurrences overnight. She wasable to work with PT and OT yesterday and ambulated to the hallway and back. OBJECTIVE I/O 03/06 0701 03/07 0700 03/07 0703/08 0700 P.O. 1040 2380 Total Intake(mL/kg) 1040 (14.6) 2380 (34.5) Urine (mL/kg/hr) 1300 (0.8) 750 (0.5) Other 1 1 Stool 0 0 Total Output 1301 751 Net -261 +1629 Unmeasured Urine Occurrence 3 x 2 x Unmeasured Stool Occurrence 1 x 3 x Lab Review: Recent Labs 03/07/24212003/06/24203803/06/24 0725 HGB 8.6 L 8.7 L 9.4 L HCT 25.1 L 25.9 L 28.1 L PLT 169 150 L 157 WBC 6.1 5.8 6.7 No results for input(s): INR, PT, APTT in the last 48 hours. Recent Labs 03/07/24212003/06/24203803/06/24 0725 NA 132 L 130 L 131 L KSERUM 4.7 4.9 4.5 CL 94 L 94 L 94 L BICARB 27 25 28 BUN 37 H 36 H 35 H CREATININE 1.15 H 1.11 H 1.16 H GLUCOSE 132 152 H 120 CALCIUM 9.2 9.2 9.5 Imaging: Abdominal XR: Nonobstructive bowel gas pattern with ongoing stool burden. Physical Exam General: Not in acute distress. Appears stated age. Skin: Warm and well perfused. Scattered ecchymosis consistent with fall. HEENT: Normocephalic, atraumatic.EOML. Respiratory: Nonlabored breathing on room air Abdomen: Soft nontender to palpation. Extremities: Bilateral lower extremities without pitting edema. Neuro: No focal neurologic deficits Consult Orders: IP CONSULT TO ORTHOPEDIC SURGERY IP CONSULT TO TRAUMA CRITICAL CARE AND GENERAL SURGERY IP CONSULT TO HOSPITAL INTERNAL MEDICINE IP CONSULT TO CARE MANAGEMENT IP CONSULT TO RADIO SURVEY WORKER BLOOD BANK SPECIALIST IP CONSULT TO CARPENTER INSPECTOR WOUND CARE ASSESSMENT / PLAN 03/08: Ms. Leon is doing well overall. She has been mobilizing well with PT/OT and is meeting hermobility goals. She continues to demonstrate stable hyponatremia and elevated BUN/creatinine. Today's Plan - continue mobilizing with physical therapy - continue to hold hypertension medications Dispo: [facility] discharge tentatively tomorrow #1 History Of Falling - TTS: completed 03/03 - SAS: completed 03/03 - Care management consulted for disposition assistance - PT/OT consulted for safety evaluation #2 Fracture Pelvis Other Parts Closed Initial (HCC) Acute comminuted and displaced right superior, inferior, and pubic body fractures - OTS-3 (30925) consulted; not following - OTS-3 defers admission to their service given pelvic bleeding secondary to solitary pelvic injuries - Non-operative management at this juncture - Activity: RLE WBAT #[address] Pelvis Imaging: Multifocal sites of active arterial extravasation arising from the replaced leftobturator, right obturator, and right medial circumflex femoral arteries. All sites treated with Gelfoam embolization. - follow hemoglobin #3 Vertigo Benign Paroxysmal Positional Bilateral #4 Vertigo - Fall risk precautions in place - Holding meclizine #5 Neuropathy Peripheral #6 Mononeuropathy Lower Limb Right - Per Geriatric recommendations, obtain repeat B12 (last checked 2013) - Gabapentin (Neurontin) 100 mg capsule and med list, however patient reports rarely taking #7 Osteoporosis - Restarted: Calcium carbonate-vitamin D3 - Holding: -- Alendronate (FOSAMAX) 70 mg tablet; not started #8 Arthritis Rheumatoid (HCC) - Holding NSAIDS #3 Hypertension - Discontinue orthostatic vital measurements - No longer orthostatic with appropriate fluid resuscitation #9 Lesion Pancreas Incidental finding on CT imagin mm hypervascular lesion in the pancreatic head (), unchanged since CT 02/03/2007 - No follow-up necessary given no changes in the last 17 years #3 Failure Renal Acute (Acute Kidney Injury) ([facility]) Creatinine on admission 1.3 versus baseline 0.9 - Avoid nephrotoxic agents including NSAIDs - Hold the following medications given decreased renal functioning: -- Losartan (COZAAR) 25 mg tablet; not started -- Hydrochlorothiazide (HYDRODIURIL) 12.5 mg tablet; held If you have any questions or concerns regarding the cares of Ms. Leon, please contact Trauma Surgery at [phone]. * Juan Cohen M.D. - 03/07/2024 5:00 PM CDT Geriatrics Consults Supervisory Note I saw and evaluated Mrs. Kathryn Leon on rounds today with our Geriatrics team, and I agree with the findings and plan as documented by Jessie Kidd PA-C, with the following comments: #1 Fall down stairs on 03/02 c/b acute superior and inferior right pelvic fractures with adjacent hematoma and evidence of active bleeding into the space of Retzius and intramuscular hematomas involving the right obturator externus and internus s/p Gelfoam embolization of the left obturator, right obturator, and right medial circumflex femoral arteries Ms. Leon is doing very well today. Her orthostatic vital signs are negative yesterday and today, after fluids. She remains only mildlyhypertensive (approx 155/55). We can hold her hydrochlorothiazide and losartan until follow up, either at her rehab facility primary care provider, as she recovers from her acute injury and bleed. She was had no recurrence of her vasovagal syncope from two nights ago. Our team's recommendations are nicely outlined in the associated note by Jessie Kidd PA-C. We will sign at this time. Please call us with any questions or issues. * Lian Valdez D.T.R. - 03/07/2024 2:42 PM CDT Clinical Nutrition: Initial Assessment RECOMMENDATIONS REQUIRING MD/PROVIDER ORDER No changes at this time; continue current nutrition orders For questions about patient's nutritional care please contact pager [phone] on weekdays or [phone] on weekends/holidays. NUTRITION ASSESSMENT: Ms. Leon is a 89 y.o. female who was admitted for Ground level fall. Injuries include acute comminuted displaced right superior pubic rami fracture right inferior pubic rami fracture and intramuscular hematoma due to ground level fall. . Completed visit with patient today as part of face to face care. Requested to see patient for evaluation of: assessment of nutritional status. Current Diet Order: Adult Diet Regular; 1500 mL Fluid; Gluten Free Current Nutrition (since admission): Mrs. Leon states her appetite has improved. She was eating a sandwich during nutrition visit. She is receiving supplements as well. Nutrition history: Prior to admission, Mrs. Gilbert states she had an appetite, however, since her 5 months ago-she doesn???t cook a lot. She does try and get her fruits and vegetables in every day; she knows she lacks protein in her diet. Discussed ways to increase protein in her diet. She takes a multivitamin and a calcium with Vitamin D supplement at home. Food Allergies: Gluten, nuts and peanuts. Chewing/Swallowing Issues: None Nutrition related medical/surgical history: Osteoporosis, Arthritis Rheumatoid, GERD ANTHROPOMETRICS: Height: 167.6 cm Admission Weight: 71.2 kg (03/02/2024) Current Weight: 69 kg BMI (Calculated): 24.6 kg/m?? Weight change since admission: -2.2 kg Weight Change History: 03/27/2021=70.8kg (via care everywhere) ESTIMATED NEEDS: Total Calorie Needs: 2897-1312 calories/day Method to Estimate Energy Needs: kcal/kg (22-25 ) Weight Used for Equation Calculations: 69 kg Total Protein Needs: 55 - 69 grams/day Method to Estimate Protein Needs (g/kg): 0.8 - 1 gm/kg Weight Used to Calculate Protein Needs (Kg): 69 kg Nutrition Diagnosis: None identified at this time. Nutrition Intervention: Provide counseling strategies to apply nutrition knowledge Monitoring/Evaluation: Nutrition parameter to monitor: Meals/Supplement Intake, Weight Status * GalJessie tyson P.A.-C. - 03/07/2024 1:55 PM CDT Geriatrics Consult - Progress Note SUBJECTIVE Mrs. Leon was seen and evaluated by the Geriatric Medicine Consult service this morning. She wasdoing well and had no concerns for our team. She had a bowel movement today that was easy to pass, so no further concerns regarding constipation. She is eating and drinking per usual and feels pain is well controlled. She walked to the hallway from the bed this morning and feels much stronger. Overall, she feels she is doing really well and has no concerns for our service. I have reviewed the current medication list. OBJECTIVE VITAL SIGNS Temperature: [36.2 ??C-36.7 ??C] 36.4 ??C Resp Rate: [15-18] 16 Blood Pressure: (123-167)/(45-86) 151/54 SpO2: [97 %-100 %] 98 % Pulse Rate: [70-92] 80 PHYSICAL EXAM General: Well developed. No acute distress. Sitting upright in the chair in good spirits. Skin: Warm, pink, dry, and well perfused. HEENT: Head normocephalic and atraumatic. Conjunctivae clear and sclerae anicteric. Hearing and vision grossly intact. Lungs:No wheezes, crackles, rhonchi, or rales. Respirations even and non-labored on room air. Neuro: A&Ox3. Responds appropriately to questions. CAM negative. DIAGNOSTICS I have independently reviewed the labs and the medical record. ASSESSMENT / PLAN [facility]. Leon [facility] for evaluation and management of: History Of Falling # Fall down stairs on 03/02 c/b acute superior and inferior right pelvic fractures with adjacent hematoma and evidence of active bleeding into the space of Retzius and intramuscular hematomas involving the right obturator externus and internus s/p Gelfoam embolization of the left obturator, right obturator, and right medial circumflex femoral arteries # ABLA # RODOLFO vs CKD (Scr 0.90 in 2020) # Mild hyponatremia and hypochloremia, BUN:Scr > 20:1 so query dehydration/hypvolemia # HTN # RA not on txt # Osteoporosis # Recurrent vertigo (BPPV) # GERD # Hx of peripheral neuropathy on B12 supplementation # 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 Kathryn Leon is an 89 y.o. female who was initially admitted to the Medicine 1 service on 03/03/2024 after presenting to the [facility] Emergency Department (ED) on 03/02/2024 s/p fall down her stairs (missed a step while descending, landed on her back and fell down). She hassignificant medical comorbidities of HTN, RA not on txt, osteoporosis, glaucoma, GERD, peripheral ne uropathy, and recurrent BPPV. In the ED, Mrs. Leon was hemodynamically stable. Trauma evaluation was notable for acute right pelvic fractures with adjacent hematoma and evidence of active bleeding into the space of Retzius andintramuscular hematomas involving the right obturator externus and internus without evidence of active extravasation. She underwent IR-guided urgent Gelfoam embolization of arterial extravasation arising from the replaced left obturator, right obturator, and right medial circumflex femoral arteries. Hemoglobin intially downtrended from 11 --> 10, but has since remained stable. In light of trauma, she was transferred from the Medicine 1 service to the [facility] service and Geriatric Medicine was consulted on 03/03. No prodromal symptoms prior to the fall. Hospitalization has been complicated by code blue activation on 03/06/2024 for an episode of vasovagal syncope while straining to have a bowel movement. She is planning to discharge to a SNF for rehab. What Matters Most to Ms. Leon: quilting, family, gardening, scientologist community Mentation: no cognitive impairment at baseline; no concerns in hospital Mobility: BMAT 4 at baseline, took 5 steps total with a walker and PT on 03/04 Medications/Medical Issues: Medication review: reconciled Holding: Alendronate, calcium vitamin-D, vitamin B12, iron, Rochelle D, Efudex cream, hydrochlorothiazide, losartan Not taking, still on med list: Aspirin, chlorthalidone, Cosopt drops Takes rarely/PRN.: Colchicine, gabapentin, meclizine Continuing: Restasis drops Relevant acute medical/geriatrics issues: RODOLFO, pubic rami fx, s/p IR embolization Anticipated disposition plan: uncertain, likely [facility] for subacute rehab SIGN OFF RECOMMENDATIONS: Hold home HCTZ and losartan until PCP follow up. Ok to discontinue q8h orthostatic vital signs. Continue daily bowel regimen. We asked Mrs. Leon to notify nursing and the primary service if she begins to have issues with loose bowel movements. Recommend adjusting home medication list to remove meclizine on discharge. (risk > benefit, eventhough rarely used). The above plan of care was discussed with Dr. Harman Cohen, HIM data security consultant. I personally spent a total of 35 minutes providing and coordinating care today. Thank you for the opportunity to care for this patient. We will sign off at this time. Please page the Geriatrics Consult Service at [phone] with any questions or concerns. * Nelly Llanes M.A., O.T., [facility] [employer] - 03/07/2024 1:55 PM CDT Occupational Therapy Acute Hospital Inpatient Treatment SUBJECTIVE Patient's Name: Kathryn Leon Referring/Attending Provider: Aries Sinha M.D. Reason for Referral: Occupational Therapy Evaluation and Treatment History of Present Illness: Kathryn Leon is a 89 y.o. female who was admitted to [facility] in [place] on 03/02/2024 for Fracture Pelvis Other Parts Closed Initial (HCC) [S32.89XA]. Precautions Weight Bearing Status: WBAT RLE Other Precautions: Fall precautions Pain Assessment: Pain Ratin/10 on a 0-10 point scale Subjective Comments: Agreeable to therapy session. Team Communication: The patient's status was discussed and coordination of care occurred with RN OBJECTIVE Vital Signs: Vitals monitored throughout session; within normal ranges. Outcome Measures: AM-PAC Inpatient Short Form: Putting on and taking off regular lower body clothing?: A Little Putting on and taking off regular upper body clothing?: None Taking care of personal grooming such as brushing teeth?: A Little Bathing (including washing, rinsing, drying)?: A lot Toileting, which includes using toilet, bedpan, or urinal?: A lot Eating meals?: None Daily Activities Raw Score (max 24): 18 Daily Activities Standardized Score: 38.66 Interpretation: Based on scoring guidelines using the raw score value: Those going to home had an average score at or above 18 Those going to facility had an average score at or below 17 Clinicians answer the [facility] Inpatient Short Form based on observed patient activity and/or clinical judgement (ie. patient can be scored without physically performing each activity) Cognition: - Cognitive Assessment Method: Therapist observations - Orientation: Oriented x4 - Arousal/Alertness: Appropriate responses to stimuli - Following Commands: Follows all commands without difficulty - Attention: Addressed, no concerns noted Therapeutic Interventions: ACTIVITIES OF DAILY LIVING: LOWER BODY DRESSING - Assist Level: Minimal Assist - Patient Location: Chair - LB Dressing Item: socks, pants - Therapist Delivery: assessed, instructed, assisted, facilitated - Assist/Cues: verbal and tactile for technique, sequencing - Patient requires assistance to get socks started over her feet. Patient able to pull socks up once over the heel. Patient able to don pants, by dressing right lower extremity first. FEEDING - Assist Level: Independent - Patient Location: Chair - Activity: bring food to mouth, bring drink to mouth - Therapist Delivery: assessed - Assist/Cues: none FUNCTIONAL TRANSFERS: SIT to STAND - Assist Level: Contact Guard Assist - Equipment: front wheeled walker and gait belt - Surface: Chair - Therapist Delivery: assessed, facilitated - Assist/Cues: verbal for proper hand placement, anterior weight shift STAND to SIT - Assist Level: Contact Guard Assist - Equipment: front wheeled walker and gait belt - Surface: Chair - Therapist Delivery: assessed, facilitated - Assist/Cues: verbal for proper hand placement, eccentric control Education/Training Provided: Functional Transfers: - Provided instruction and cues during functional sit to/from stand transfers, including body alignment to surface, appropriate hand placement, and optimal placement of extremities to optimize safetyand technique. LB Dressing: - Patient instructed on dressing compensatory strategies and aids to assist with don/doff process. Emphasized don/doff strategies including donning clothing over impaired extremity first and doffing over it last. Patient reports having a sock aid at home, that was her husbands. Patient may benefit from trial of sock aid, as she requires assistance with getting socks started. Patient reports that she doesn't have to wear socks in the summer. Patient was left in bedside chair at end of session with call light in reach, all needs met and questions answered. Assessment Discharge Therapy Needs - OT: Ongoing skilled occupational therapy If skilled therapy is recommended, Skilled therapy can include occupational therapy provided in home health, outpatient or post-acute facility. The location of these services is determined by patient's care team in partnership with patient/family. Barriers to Discharge Home: Current functional status, Fall risk, Inaccessible home environment, Limited caregiver availability Level of Care Needed - OT: Assistance with toileting, Assistance with meal preparation, Assistance with toilet/shower transfers, Assistance with showering/bathing, Assistance with dressing, Assistance with transportation, Assistance with housekeeping, Assistance with shopping, Physical assistance ne eded Clinical Impression: Patient motivated for therapy, as demonstrated by her active participation. Patient able to performlower body dressing with minimal assistance. Patient performed sit to stand transfer with contact guard assistance and front wheel walker. Patient reports plans to go to a facility for rehab, prior to returning home. Patient will continue to benefit from occupational therapy to return to prior level of function. Plan OT Plan Comments: progress mobliity; toileting, standing grooming; Functional Goals: OT Goal #1: Patient will complete toileting tasks and transfer with modified independence in order to return to prior level of function upon discharge. OT Goal #1 Status: Ongoing OT Goal #2: Patient will verbalize and demonstrate understanding of use of DME in order to promote safety and independence upon discharge. OT Goal #2 Status: Ongoing OT Goal #3: Patient will complete total body dressing with modified independence in order to returnto prior level of function upon discharge. OT Goal #3 Status: Progressing Progress: Progressing toward goals Rehab potential: Ms. Leon has good potential to achieve established occupational therapy goals within the time frame outlined below. OT Frequency: OT Amount: 1 visit per day OT Frequency: 5 times per week OT Inpatient Duration : Until goals are met or hospital discharge Requires Inpatient OT Follow-Up: Yes OT - Next Inpatient Appointment: 03/08/24 Plan: Continue with current plan Treatment interventions may include: Treatment Interventions: Therapeutic exercise, Therapeutic functional activity, Self-care/home management, Cognitive skills training Occupational Therapy Attestation Statement: Patient agrees with the plan of care and goals. Billing: Time Spent with Patient Therapeutic Interventions Home Management Training (min): 25 min Time Tracking Total Timed Units (min): 25 min Total Treatment Time (min): 25 min Yanet Llanes M.A., O.T., BCPR * Antonia Driscoll L.G.S.W., M.S.W. - 03/07/2024 1:46 PM CDT SUBJECTIVE [facility]. Patient is the only pended patient for consideration of admission on 03/08/24. OBJECTIVE Referrals sent Service Provider Request Status Selected Services Address Phone Fax Patient Preferred [facility]IL HERNANDE[facility] - [facility] Pending - Request Sent N/A [id number] [address] [phone] -- Phone Fax Patient Preferred [facility] Pending - Request Sent N/A [address] [facility] [address] [phone] -- ASSESSMENT / PLAN ASSESSMENT Patient is awaiting placement, hopefully in [facility]. She is pended and the only pended patient for consideration of admission on 03/08/24. PLAN -Patient desires discharge to short term rehab. -Transportation needs will be addressed closer to time of discharge. -Social Work will assist with transition planning and will offer supportive visits as necessary during remainder of patient's hospital stay. Kwesi Dooley, M.S.W. 03/07/24 * Danielito Lira P.T., D.P.T. - 03/07/2024 9:05 AM CDT Physical Therapy Inpatient Treatment SUBJECTIVE Patient's Name: Kathryn Leon Referring/Attending Provider: Aries Sinha M.D. Reason for Referral: Physical Therapy Evaluate and Treat History of Present Illness: Kathryn Leon is a 89 y.o. female who was admitted to [facility] in [place] on 03/02/2024 for Fracture Pelvis Other Parts Closed Initial (HCC) [S32.89XA] Precautions Weight Bearing Status: WBAT RLE Other Precautions: Fall precautions Pain Assessment: Rated pain 0/10 at rest, 6/10 to right hip/pelvis with activity. PT session had been coordinated with nursing so that patient had received pain medication prior to therapy. Patient/Caregiver Goals: Return to home and Return to prior level of function Subjective Comments: Patient agreed to session. OBJECTIVE Vital Signs Blood pressures monitored with position changes given recent syncopal event and orthostatic hypotension - Seated: 123/86 (90) mmHg - Standin/49 (67) mmHg - Seated, following ambulation: 150/45 (70) mmHg Outcome Measures: [facility] Inpatient Short Form: -[facility] Basic Mobility (V.2) How much help from another person do you currently need???If the patient hasn't done an activity recently, how much help from another person do you think he/she would needif he/she tried? 1. Turning from your back to your side while in a flat bed without using bedrails?: A Lot 2. Moving from lying on your back to sitting on the side of a flat bed without using bedrails?: A Lot 3. Moving to and from a bed to a chair (including a wheelchair)?: A Little 4. Standing up from a chair using your arms (e.g., wheelchair, or bedside chair)?: A Little 5. To walk in hospital room?: A Little 6. Climbing 3-5 steps with a railing?: A Lot -[facility] Basic Mobility (V.2) Raw Score: 15 -[facility] Basic Mobility (V.2) Standardized Score: 36.97 Interpretation: Based on scoring guidelines using the raw score value: Those going to home had an average score at or above 18 Those going to facility had an average score at or below 17 Clinicians answer the [facility] Inpatient Short Form based on observed patient activity and/or clinical judgement (ie. patient can be scored without physically performing each activity) Therapeutic Interventions: SIT TO STAND: Assistance Level: Contact Guard Assistance of 1 Device: gait belt and front wheeled walker Surface: Bed and Commode Assistance/Cueing: verbal for Anterior weight shifting and Upper extremity placement STAND TO SIT: Assistance Level: Contact Guard Assistance of 1 Device: gait belt and front wheeled walker Surface: Chair and Commode Assistance/Cueing: verbal for Alignment with seated surface, Eccentric control, and Upper extremityplacement PIVOT TRANSFERS: Surface: Bed to Commode Assistance Level: Contact Guard Assistance of 1 Device: gait belt and front wheeled walker Approach: stand pivot Assistance/Cueing: verbal for Placement of gait aid and Sequencing GAIT: Distance: 6 meters Assistance Level:Contact Guard Assistance of 1 + 2nd person for chair follow Device: gait belt and front wheeled walker Quality: antalgic, decreased gait speed, decreased stance time on the right, decreased step length,decreased weight bearing tolerance, guarded, step-to pattern Assistance/Cueing: Step by step verbal cues provided for sequencing with emphasis on weight bearingthrough upper extremities into walker during single limb support on the right to help with offloading and pain control. Emphasis also placed on facilitating increased hip flexion to help clear the right foot during limb advancement today, as well as improved foot clearance when advancing the left foot. Comments: Able to progress distance relative to previous sessions and continues to demonstrate improvement with foot clearance bilaterally. Overall distance/tolerance remains limited due to pain (rated 6/10) and fatigue. The patient's status was discussed and the following coordination of care occurred with the drop forger/Caregiver Present: No Patient was left in bedside chair at end of session with call light in reach, all needs met and questions answered. Assessment Discharge Therapy Needs - PT: Ongoing skilled physical therapy If skilled therapy is recommended, skilled therapy can include physical therapy provided by home health, outpatient clinic, or a post-acute facility. The location of these services is determined by the patient's care team in partnership with patient/family. Level of Care Needed - PT: Assistance with bed mobility, Assistance with transfers, Assistance withwalking and moving around the home, Assistance with stairs Equipment Recommended - PT: Front-wheeled walker Barriers to Discharge Home: Current functional status, Fall risk, Inaccessible home environment, Limited caregiver availability Clinical Impression: Kathryn continues to demonstrate gradual progress from a functional mobility perspective. She was ableto increase her ambulation distance to about 20 feet this morning and continues to demonstrate improvement with foot clearance and sequencing with the walker. Overall, her activity tolerance remains limited due to pain and fatigue. She remains well below her functional baseline and would benefit from continued physical therapy to further optimize her safety and independence with mobility. Rehab potential: Ms. Leon has Good potential to achieve established physical therapy goals within the time frame outlined below. Progress: Slow progress, limited activity tolerance Plan PT Plan Comments: Progress bed mobility, transfer training and gait training as tolerated. Coordinate with nursing to ensure pain medication on board prior to session. Functional Goals: PT Inpatient Goals PT Goal #1: Patient will complete supine to/from sitting transitions with modified independence while maintaining activity precautions to demonstrate return to functional baseline PT Goal #1 Status: Ongoing PT Goal #2: Patient will complete sit to/from stand transitions with modified independence using least restrictive assistive device while maintaining activity precautions to demonstrate progression toward functional baseline PT Goal #2 Status: Progressing PT Goal #3: Patient will ambulate 35 m with modified independence using least restrictive assistivedevice while maintaining activity precautions to demonstrate progression toward functional baselineand enable safe household distance ambulation PT Goal #3 Status: Slowly progressing PT Goal #4: Patient will negotiate 4 stairs with modified independence using least restrictive assistive device while maintaining activity precautions to enable safe entrance into the home PT Goal #4 Status: Ongoing Treatment Plan: Plan: Continue with current plan PT Frequency: 5 times per week PT Inpatient Duration : Until goals are met or hospital discharge Requires Inpatient Follow-Up: Yes PT - Next Inpatient Appointment: 03/08/24 Patient agrees with the plan of care and goals. Treatment interventions may include: Treatment/Interventions: Therapeutic exercise, Therapeutic functional activity, Neuromuscular re-education, Gait training, Self-care/home management Billing: Time Spent with Patient Therapeutic Interventions Gait Training (min): 15 min Therapeutic Activity (min): 13 min Time Tracking Total Timed Units (min): 28 min Total Treatment Time (min): 28 min Danielito Lira P.T., D.P.T. * Renée Brannon M.D. - 03/07/2024 7:09 AM CDT Trauma Surgery Progress Note Admission Date/Time: 03/02/2024 10:47 PM Trauma Level: Green Mechanism of Injury: Fall down stairs; approximately 2 steps. HPI: Ms. Leon is a 89 y.o. female who and acute comminuted displaced right superior pubic rami fracture right inferior pubic rami fracture and intramuscular hematoma due to ground level fall. SUBJECTIVE NAEON. She has remained afebrile and stable overnight. She has had systolic blood pressures to the 150s systolic and intermittent desaturations to 84%. This morning, she is saturating well on room air. She has had 1.3L urine output over the last 24 hours, as well as 3 unmeasured urine occurrences. She had one stool occurrence overnight. On discussion with her this morning, she is in good spirits and is looking forward to taking a shower. OBJECTIVE I/O 03/05 0703/06 0703/06 0703/07 0703/07 0703/08 0700 P.O. 1900 1040 Total Intake(mL/kg) 1900 (26.7) 1040 (14.6) Urine (mL/kg/hr) 1150 (0.7) 1300 (0.8) Other 1 1 Stool 0 0 Total Output 1151 1301 Net +749 -261 Unmeasured Urine Occurrence 4 x 3 x Unmeasured Stool Occurrence 3 x 1 x Lab Review: Recent Labs 03/06/24203803/06/2472403/05/24234803/05/24 1036 HGB 8.7 L 9.4 L 9.9 L 9.8 L HCT 25.9 L 28.1 L 28.2 L 29.3 L PLT 150 L 157 151 L 146 L WBC 5.8 6.7 9.0 7.3 No results for input(s): INR, PT, APTT in the last 48 hours. Recent Labs 03/06/24203803/06/2472403/05/24234803/05/24 1036 NA 130 L 131 L 128 L 131 L KSERUM 4.9 4.5 -- 4.4 CL 94 L 94 L 92 L 95 L BICARB 23 BUN 36 H 35 H 37 H 32 H CREATININE 1.11 H 1.16 H 1.21 H 1.27 H GLUCOSE 152 H 120 140 123 CALCIUM 9.2 9.5 9.3 9.2 Imaging: Abdominal XR: Nonobstructive bowel gas pattern with ongoing stool burden. Physical Exam General: Not in acute distress. Appears stated age. Skin: Warm and well perfused. Scattered ecchymosis consistent with fall. HEENT: Normocephalic, atraumatic.EOML. Respiratory: Nonlabored breathing on room air Abdomen: Soft, diffusely tender to palpation (mild). Normoactive bowel sounds. Extremities: Bilateral lower extremities without pitting edema. Neuro: No focal neurologic deficits Consult Orders: IP CONSULT TO ORTHOPEDIC SURGERY IP CONSULT TO TRAUMA CRITICAL CARE AND GENERAL SURGERY IP CONSULT TO HOSPITAL INTERNAL MEDICINE IP CONSULT TO CARE MANAGEMENT IP CONSULT TO RADIO SURVEY WORKER BLOOD BANK SPECIALIST IP CONSULT TO CARPENTER INSPECTOR WOUND CARE ASSESSMENT / PLAN 03/06: Ms. Leon is doing well overall. She did not have any further vasovagal events overnight. She has been able to mobilize with PT. We will continue to trend her hemoglobin and creatinine, and continue to monitor her orthostatic vital signs. Today's Plan - continue mobilizing with physical therapy - continue to hold hypertension medications in light of orthostatic hypotension - trend hemoglobin, creatinine for pelvic hematoma and RODOLFO respectively Dispo: [facility] referrals sent #1 History Of Falling - TTS: completed 03/03 - SAS: completed 03/03 - Care management consulted for disposition assistance - PT/OT consulted for safety evaluation #2 Fracture Pelvis Other Parts Closed Initial (HCC) Acute comminuted and displaced right superior, inferior, and pubic body fractures - OTS-3 (74337) consulted; not following - OTS-3 defers admission to their service given pelvic bleeding secondary to solitary pelvic injuries - Non-operative management at this juncture - Activity: RLE WBAT #[address] Pelvis Imaging: Multifocal sites of active arterial extravasation arising from the replaced leftobturator, right obturator, and right medial circumflex femoral arteries. All sites treated with Gelfoam embolization. - follow hemoglobin #3 Vertigo Benign Paroxysmal Positional Bilateral #4 Vertigo - Fall risk precautions in place - Holding meclizine #5 Neuropathy Peripheral #6 Mononeuropathy Lower Limb Right - Per Geriatric recommendations, obtain repeat B12 (last checked 2013) - Gabapentin (Neurontin) 100 mg capsule and med list, however patient reports rarely taking #7 Osteoporosis - Restarted: Calcium carbonate-vitamin D3 - Holding: -- Alendronate (FOSAMAX) 70 mg tablet; not started #8 Arthritis Rheumatoid (HCC) - Holding NSAIDS #3 Hypertension - Continue orthostatic vital signs #9 Lesion Pancreas Incidental finding on CT imagin mm hypervascular lesion in the pancreatic head (3/), unchanged since CT 02/03/2007 - No follow-up necessary given no changes in the last 17 years #3 Failure Renal Acute (Acute Kidney Injury) (HCC) Creatinine on admission 1.3 versus baseline 0.9 - Avoid nephrotoxic agents including NSAIDs - Hold the following medications given decreased renal functioning: -- Losartan (COZAAR) 25 mg tablet; not started -- Hydrochlorothiazide (HYDRODIURIL) 12.5 mg tablet; held If you have any questions or concerns regarding the cares of Ms. Leon, please contact Trauma Surgery at [phone]. * Renée Brannon M.D. - 03/06/2024 8:17 AM CDT Trauma Surgery Progress Note Admission Date/Time: 03/02/2024 10:47 PM Trauma Level: Green Mechanism of Injury: Fall down stairs; approximately 2 steps. HPI: Ms. Leon is a 89 y.o. female who and acute comminuted displaced right superior pubic rami fracture right inferior pubic rami fracture and intramuscular hematoma due to ground level fall. SUBJECTIVE CORRECTIONAL TREATMENT SPECIALIST called yesterday due to syncopal event while patient was having a BM. She reportedly lost consciousness for approx. 2 mins. She recovered without incident and CORRECTIONAL TREATMENT SPECIALIST team determined this was most likely due to vasovagal event. She was otherwise afebrile and stable overnight. She continues to demonstrate orthostatic vital signs overnight. She is saturating well on room air. She has had 1.1L urineoutput over the last 24 hours, as well as 3 stool occurrences. She was able to mobilize minimally with PT yesterday. OBJECTIVE I/O 03/04 0701 03/05 0700 03/05 0701 03/06 0700 03/06 0701 03/07 0700 P.O. 950 1900 Maintenance IV Total Intake(mL/kg) 950 (13.3) 1900 (26.7) Urine (mL/kg/hr) 1350 (0.8) 1150 (0.7) Other 1 Stool 0 0 Total Output 1350 1151 Net -400 +749 Unmeasured Urine Occurrence 4 x Unmeasured Stool Occurrence 1 x 3 x Lab Review: Recent Labs 03/06/24 0725 03/05/24 2349 03/05/24 1036 HGB 9.4 L 9.9 L 9.8 L HCT 28.1 L 28.2 L 29.3 L PLT 157 151 L 146 L WBC 6.7 9.0 7.3 No results for input(s): INR, PT, APTT in the last 48 hours. Recent Labs 03/06/24 0725 03/05/24 2349 03/05/24 1036 NA 131 L 128 L 131 L KSERUM 4.5 -- 4.4 CL 94 L 92 L 95 L BICARB 23 BUN 35 H 37 H 32 H CREATININE 1.16 H 1.21 H 1.27 H GLUCOSE 120 140 123 CALCIUM 9.5 9.3 9.2 Imaging: Abdominal XR: Nonobstructive bowel gas pattern with ongoing stool burden. Physical Exam General: Not in acute distress. Appears stated age. Skin: Warm and well perfused. Scattered ecchymosis consistent with fall. HEENT: Normocephalic, atraumatic.EOML. Respiratory: Nonlabored breathing on room air Abdomen: Soft, diffusely tender to palpation. Normoactive bowel sounds. Extremities: Bilateral lower extremities without pitting edema. Neuro: No focal neurologic deficits Consult Orders: IP CONSULT TO ORTHOPEDIC SURGERY IP CONSULT TO TRAUMA CRITICAL CARE AND GENERAL SURGERY IP CONSULT TO HOSPITAL INTERNAL MEDICINE IP CONSULT TO CARE MANAGEMENT IP CONSULT TO RADIO SURVEY WORKER BLOOD BANK SPECIALIST IP CONSULT TO CARPENTER INSPECTOR WOUND CARE ASSESSMENT / PLAN 03/06: Ms. Leon is doing well overall. Orthostatic hypotension continues based on vitals charted overnight. While she did have a vasovagal event yesterday, she appears well on evaluation this morning. We will continue to work on mobilization today, as well as restart her HCTZ given her improved creatinine. We will continue to monitor her abdominal tenderness throughout the day. Today's Plan - restart HCTZ - continue mobilizing with physical therapy - continue to hold hypertension medications in light of orthostatic hypotension - trend hemoglobin, creatinine for pelvic hematoma and RODOLFO respectively Dispo: [facility] referrals sent. #1 History Of Falling - TTS: completed 03/03 - SAS: completed 03/03 - Care management consulted for disposition assistance - PT/OT consulted for safety evaluation #2 Fracture Pelvis Other Parts Closed Initial (HCC) Acute comminuted and displaced right superior, inferior, and pubic body fractures - OTS-3 (96548) consulted; not following - OTS-3 defers admission to their service given pelvic bleeding secondary to solitary pelvic injuries - Non-operative management at this juncture - Activity: RLE WBAT #[address] Pelvis Imaging: Multifocal sites of active arterial extravasation arising from the replaced leftobturator, right obturator, and right medial circumflex femoral arteries. All sites treated with Gelfoam embolization. - follow hemoglobin #3 Vertigo Benign Paroxysmal Positional Bilateral #4 Vertigo - Fall risk precautions in place - Holding meclizine #5 Neuropathy Peripheral #6 Mononeuropathy Lower Limb Right - Per Geriatric recommendations, obtain repeat B12 (last checked 2013) - Gabapentin (Neurontin) 100 mg capsule and med list, however patient reports rarely taking #7 Osteoporosis - Restarted: Calcium carbonate-vitamin D3 - Holding: -- Alendronate (FOSAMAX) 70 mg tablet; not started #8 Arthritis Rheumatoid (HCC) - Holding NSAIDS #3 Hypertension - Continue orthostatic vital signs #9 Lesion Pancreas Incidental finding on CT imagin mm hypervascular lesion in the pancreatic head (), unchanged since CT 02/03/2007 - No follow-up necessary given no changes in the last 17 years #3 Failure Renal Acute (Acute Kidney Injury) ([facility]) Creatinine on admission 1.3 versus baseline 0.9 - Avoid nephrotoxic agents including NSAIDs - Hold the following medications given decreased renal functioning: -- Losartan (COZAAR) 25 mg tablet; not started -- Hydrochlorothiazide (HYDRODIURIL) 12.5 mg tablet; restarted If you have any questions or concerns regarding the cares of Ms. Leon, please contact Trauma Surgery at [phone]. * Jessie Kidd P.A.-C. - 03/06/2024 7:53 AM CDT Geriatrics Consult - Progress Note SUBJECTIVE Mrs. Leon was seen and evaluated by the Geriatric Medicine Consult service this morning. She wasdoing well and had no concerns for our team. Mrs. Leon reports an eventful evening yesterday. She has been struggling w/ constipation since admission (AXR congruent) and so her bowel regimen had been escalated to include PO Senokot-S and an enema. Shortly after the enema she was on the commode attempting to pass stool when she felt light headed and had a brief syncopal episode. A Code Blue wascalled and nursing transferred her to the bed, by which time she was awake again. She denies any prodromal symptoms prior to getting up to use the commode while she was on the commode supporting a vas ovagal syncopal episode. Labs including CBC and BMP were obtained, notable for stable anemia in thesetting of ABLA and mild hyponatremia w/ Na of 128. ECG was reassuring w/ NSR, non-specific ST changes. She is tired this morning with some pain around her right groin access but otherwise is doing well. She does feel quite thirsty this morning and has yet to have a bowel movement. I have reviewed the current medication list. OBJECTIVE VITAL SIGNS Temperature: [36.2 ??C-36.7 ??C] 36.6 ??C Heart Rate: [76] 76 Resp Rate: [16-19] 16 Blood Pressure: (115-162)/(37-111) 142/50 SpO2: [81 %-100 %] 99 % Flow Rate (L/min): [1 L/min] 1 L/min Pulse Rate: [68-94] 71 PHYSICAL EXAM General: Well developed. No acute distress. Fatigued appearing. Skin: Warm, pink, dry, and well perfused. HEENT: Head normocephalic and atraumatic. Conjunctivae clear and sclerae anicteric. Hearing and vision grossly intact. Dry MM. Poor skin turgor. Heart: RRR. No MRG. Trace bilateral lower extremity edema which she states is baseline Lungs: CTAB. No wheezes, crackles, rhonchi, or rales. Respirations even and non- labored on room air. Abdomen: Soft, nontender, nondistended. Normoactive bowel sounds x 4 quadrants. Pain around the right groin access site which is c/d/i and without obvious fluid collection underneath the dressing. Neuro: A&Ox3. Responds appropriately to questions. CAM negative. DIAGNOSTICS I have independently reviewed the lab and the medical record. ASSESSMENT / PLAN Ms. Leon is hospitalized on [facility] Trauma for evaluation and management of: History Of Falling # Fall down stairs on 03/02 c/b acute superior and inferior right pelvic fractures with adjacent hematoma and evidence of active bleeding into the space of Retzius and intramuscular hematomas involving the right obturator externus and internus s/p Gelfoam embolization of the left obturator, right obturator, and right medial circumflex femoral arteries # ABLA # RODOLFO vs CKD (Scr 0.90 in 2020) # Mild hyponatremia and hypochloremia, BUN:Scr > 20:1 so query dehydration/hypvolemia # HTN # RA not on txt # Osteoporosis # Recurrent vertigo (BPPV) # GERD # Hx of peripheral neuropathy on B12 supplementation # 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 Kathryn Leon is an 89 y.o. female who was initially admitted to the Medicine 1 service on 03/03/2024 after presenting to the [facility] Emergency Department (ED) on 03/02/2024 s/p fall down her stairs (missed a step while descending, landed on her back and fell down). She hassignificant medical comorbidities of HTN, RA not on txt, osteoporosis, glaucoma, GERD, peripheral ne uropathy, and recurrent BPPV. In the ED, Mrs. Leon was hemodynamically stable. Trauma evaluation was notable for acute right pelvic fractures with adjacent hematoma and evidence of active bleeding into the space of Retzius andintramuscular hematomas involving the right obturator externus and internus without evidence of active extravasation. She underwent IR-guided urgent Gelfoam embolization of arterial extravasation arising from the replaced left obturator, right obturator, and right medial circumflex femoral arteries. Hemoglobin intially downtrended from 11 --> 10, but has since remained stable. In light of trauma, she was transferred from the Medicine 1 service to the [facility] service and Geriatric Medicine was consulted on 03/03. No prodromal symptoms prior to the fall. Hospitalization has been complicated by code blue activation on 03/06/2024 for an episode of vasovagal syncope while straining to have a bowel movement. She is planning to discharge to a SNF for rehab. What Matters Most to Ms. Leon: quilting, family, gardening, scientologist community Mentation: no cognitive impairment at baseline; no concerns in hospital Mobility: BMAT 4 at baseline, took 5 steps total with a walker and PT on 03/04 Medications/Medical Issues: Medication review: reconciled Holding: Alendronate, calcium vitamin-D, vitamin B12, iron, Rochelle D, Efudex cream, hydrochlorothiazide, losartan Not taking, still on med list: Aspirin, chlorthalidone, Cosopt drops Takes rarely/PRN.: Colchicine, gabapentin, meclizine Continuing: Restasis drops Relevant acute medical/geriatrics issues: RODOLFO, pubic rami fx, s/p IR embolization Anticipated disposition plan: uncertain, likely [facility] for subacute rehab NEW RECOMMENDATIONS: Syncopal episode on 03/06 appears congruent with a vasovagal syncope. Recommend orthostatic vital signs as below, but otherwise further workup indicated at this time. Mrs. Leon appears hypovolemic. Would recommend first obtaining orthostatic vital signs and then administering 1 L lactated ringers over 3-4 hours today. If orthostatic positive prior to fluids, check again after to confirm improvement/resolution. Escalate bowel regimen to include: Daily Miralax scheduled. Senokot-S 1 tablet BID. PRN Bisacodyl suppositories and PRN Enemeez. PRN TID Lactulose 10 g. Continue to hold home losartan and HCTZ. Obtain BMP with AM labs on 03/07. Consider discontinuing NSAIDs. PREVIOUS RECOMMENDATIONS: Recommend adjusting home medication list to remove meclizine (risk > benefit, even though rarelyused). Agree with multimodal analgesia (APAP, topicals, ice, low dose oxycodone for breakthrough pain). Recommend getting up to chair as much as possible during daytime hours; if pain is limiting comfortin the chair, consider use of a roho cushion. The above plan of care was discussed with Dr. Anastacio Bejarano, HIM data security consultant. I personally spent a total of 50 minutes providing and coordinating care today. Thank you for the opportunity to care for this patient. We will continue to follow with you. Pleasepage the Geriatrics Consult Service at [phone] with any questions or concerns. * Yohan Santana L.R.T., RRT-PROFESSIONAL NURSE - 03/05/2024 11:57 PM CDT Responded to Code Blue, patient is awake on Room Air, Code downgraded to an CORRECTIONAL TREATMENT SPECIALIST, patient had no respiratory concerns at this time * Danielito Lira P.T., JellyPMaikel - 03/05/2024 1:57 PM CDT Physical Therapy Inpatient Treatment SUBJECTIVE Patient's Name: Kathryn Leon Referring/Attending Provider: Sree Zaidi M.D. Reason for Referral: Physical Therapy Evaluate and Treat History of Present Illness: Kathryn Leon is a 89 y.o. female who was admitted to [facility] in [place] on 03/02/2024 for Fracture Pelvis Other Parts Closed Initial (HCC) [S32.89XA] Precautions Weight Bearing Status: WBAT RLE Other Precautions: Fall precautions Pain Assessment: Rated pain 0/10 at rest, 7/10 to right hip/pelvis with activity. PT session had been coordinated with nursing so that patient had received pain medication prior to therapy. Patient/Caregiver Goals: Return to home and Return to prior level of function Subjective Comments: Patient agreed to session. OBJECTIVE Vital Signs Pre-Activity: Pulse Rate: 82 bpm Blood Pressure: 130/49 (65) mmHg O2: 97% Room air Post Activity: Pulse Rate: 90 bpm Blood Pressure: 144/41 (66) mmHg O2: 98% Room air Outcome Measures: AM-PAC Inpatient Short Form: AM-PAC Basic Mobility (V.2) How much help from another person do you currently need???If the patient hasn't done an activity recently, how much help from another person do you think he/she would needif he/she tried? 1. Turning from your back to your side while in a flat bed without using bedrails?: A Lot 2. Moving from lying on your back to sitting on the side of a flat bed without using bedrails?: A Lot 3. Moving to and from a bed to a chair (including a wheelchair)?: A Little 4. Standing up from a chair using your arms (e.g., wheelchair, or bedside chair)?: A Little 5. To walk in hospital room?: A Little 6. Climbing 3-5 steps with a railing?: Total -[facility] Basic Mobility (V.2) Raw Score: 14 -[facility] Basic Mobility (V.2) Standardized Score: 35.55 Interpretation: Based on scoring guidelines using the raw score value: Those going to home had an average score at or above 18 Those going to facility had an average score at or below 17 Clinicians answer the -[facility] Inpatient Short Form based on observed patient activity and/or clinical judgement (ie. patient can be scored without physically performing each activity) Therapeutic Interventions: SIT TO STAND: Assistance Level: Contact Guard Assistance of 1 Device: gait belt and front wheeled walker Surface: Chair Assistance/Cueing: verbal for Anterior weight shifting, Sequencing, Technique, and Upper extremity placement STAND TO SIT: Assistance Level: Contact Guard Assistance of 1 Device: gait belt and front wheeled walker Surface: Chair Assistance/Cueing: verbal for Alignment with seated surface, Eccentric control, and Upper extremityplacement GAIT: Distance: 2.1 meters Assistance Level:Minimal Assistance of 1 Device: gait belt and front wheeled walker Quality: antalgic, decreased gait speed, decreased stance time Right, decreased step length, decreased weight bearing tolerance, guarded, shuffling Assistance/Cueing: Step by step verbal cues provided for sequencing with emphasis on weight bearingthrough upper extremities into walker during single limb support on the right to help with offloading and pain control. Emphasis also placed on facilitating increased hip flexion to help clear the right foot during limb advancement today, as well as improved foot clearance when advancing the left foot. Comments: Able to progress distance slightly today but with notable improvement in foot clearance with cues provided as above. Overall distance/tolerance remains limited due to pain (rated 7/10) and fatigue. The patient's status was discussed and the following coordination of care occurred with the drop forger/Caregiver Present: Son Patient was left in bedside chair at end of session with call light in reach, all needs met and questions answered. Assessment Discharge Therapy Needs - PT: Ongoing skilled physical therapy If skilled therapy is recommended, skilled therapy can include physical therapy provided by home health, outpatient clinic, or a post-acute facility. The location of these services is determined by the patient's care team in partnership with patient/family. Level of Care Needed - PT: Assistance with bed mobility, Assistance with transfers, Assistance withwalking and moving around the home, Assistance with stairs, Physical assistance needed Equipment Recommended - PT: Front-wheeled walker Barriers to Discharge Home: Current functional status, Fall risk, Inaccessible home environment, Limited caregiver availability Clinical Impression: Kathryn demonstrated good improvement with foot clearance today but her overall ambulation distance/tolerance remains limited due to pain and fatigue. She remains well below her functional baseline and would benefit from continued physical therapy to further optimize her safety and independence with mobility. Rehab potential: Ms. Leon has Good potential to achieve established physical therapy goals within the time frame outlined below. Progress: Slow progress, limited activity tolerance Plan PT Plan Comments: Progress bed mobility, transfer training and gait training as tolerated. Coordinate with nursing to ensure pain medication on board prior to session. Functional Goals: PT Inpatient Goals PT Goal #1: Patient will complete supine to/from sitting transitions with modified independence while maintaining activity precautions to demonstrate return to functional baseline PT Goal #1 Status: Ongoing PT Goal #2: Patient will complete sit to/from stand transitions with modified independence using least restrictive assistive device while maintaining activity precautions to demonstrate progression toward functional baseline PT Goal #2 Status: Slowly progressing PT Goal #3: Patient will ambulate 35 m with modified independence using least restrictive assistivedevice while maintaining activity precautions to demonstrate progression toward functional baselineand enable safe household distance ambulation PT Goal #3 Status: Slowly progressing PT Goal #4: Patient will negotiate 4 stairs with modified independence using least restrictive assistive device while maintaining activity precautions to enable safe entrance into the home PT Goal #4 Status: Ongoing Treatment Plan: Plan: Continue with current plan PT Frequency: 5 times per week PT Inpatient Duration : Until goals are met or hospital discharge Requires Inpatient Follow-Up: Yes PT - Next Inpatient Appointment: 03/07/24 Patient agrees with the plan of care and goals. Treatment interventions may include: Treatment/Interventions: Therapeutic exercise, Therapeutic functional activity, Neuromuscular re-education, Gait training, Self-care/home management Billing: Time Spent with Patient Therapeutic Interventions Gait Training (min): 18 min Time Tracking Total Timed Units (min): 18 min Total Treatment Time (min): 18 min Danielito Lira P.T., D.P.T. * Jessie Kidd P.A.-C. - 03/05/2024 1:20 PM CDT Geriatrics Consult - Progress Note SUBJECTIVE Mrs. Leon was seen and evaluated by the Geriatric Medicine Consult service this morning. She wasdoing well and had no concerns for our team. I have reviewed the current medication list. OBJECTIVE VITAL SIGNS Temperature: [36.2 ??C-36.8 ??C] 36.8 ??C Resp Rate: [16] 16 Blood Pressure: (126-165)/(65-77) 126/71 SpO2: [99 %-100 %] 99 % Pulse Rate: [77-97] 97 PHYSICAL EXAM General: Well developed. No acute distress. Skin: Warm, pink, dry, and well perfused. HEENT: Head normocephalic and atraumatic. Conjunctivae clear and sclerae anicteric. Hearing and vision grossly intact. Heart: Trace bilateral lower extremity edema which she states is baseline Lungs: Respirations even and non-labored on room air. Abdomen: Soft, nontender, nondistended. Neuro: A&Ox3. Responds appropriately to questions.CAM negative. DIAGNOSTICS I have independently reviewed the lab and the medical record. ASSESSMENT / PLAN Ms. Leon [facility] for evaluation and management of: History Of Falling # Fall down stairs on 03/02 c/b acute superior and inferior right pelvic fractures with adjacent hematoma and evidence of active bleeding into the space of Retzius and intramuscular hematomas involving the right obturator externus and internus s/p Gelfoam embolization of the left obturator, right obturator, and right medial circumflex femoral arteries # ABLA # RODOLFO vs CKD (Scr 0.90 in 2020) # HTN # RA not on txt # Osteoporosis # Recurrent vertigo (BPPV) # GERD # Hx of peripheral neuropathy on B12 supplementation # 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 Kathryn Leon is an 89 y.o. female who was initially admitted to the Medicine 1 service on 03/03/2024 after presenting to the [facility] Emergency Department (ED) on 03/02/2024 s/p fall down her stairs (missed a step while descending, landed on her back and fell down). She hassignificant medical comorbidities of HTN, RA not on txt, osteoporosis, glaucoma, GERD, peripheral ne uropathy, and recurrent BPPV. In the ED, Mrs. Leon was hemodynamically stable. Trauma evaluation was notable for acute right pelvic fractures with adjacent hematoma and evidence of active bleeding into the space of Retzius andintramuscular hematomas involving the right obturator externus and internus without evidence of active extravasation. She underwent IR-guided urgent Gelfoam embolization of arterial extravasation arising from the replaced left obturator, right obturator, and right medial circumflex femoral arteries. Hemoglobin intially downtrended from 11 --> 10, but has since remained stable. In light of trauma, she was transferred from the Medicine 1 service to the [facility] service and Geriatric Medicine was consulted on 03/03. No prodromal symptoms prior to the fall. She is planning to discharge to a SNF for rehab. What Matters Most to Ms. Leon: quilting, family, gardening, scientologist community Mentation: no cognitive impairment at baseline; no concerns in hospital Mobility: BMAT 4 at baseline, took 5 steps total with a walker and PT on 03/04 Medications/Medical Issues: Medication review: reconciled Holding: Alendronate, calcium vitamin-D, vitamin B12, iron, Rochelle D, Efudex cream, hydrochlorothiazide, losartan Not taking, still on med list: Aspirin, chlorthalidone, Cosopt drops Takes rarely/PRN.: Colchicine, gabapentin, meclizine Continuing: Restasis drops Relevant acute medical/geriatrics issues: RODOLFO, pubic rami fx, s/p IR embolization Anticipated disposition plan: uncertain, likely [facility] for subacute rehab RECOMMENDATIONS: Trend BMP to evaluate for further improvement in Scr. If not much change tomorrow, her new Scr baseline may be 1.0-1.3. Continue holding losartan and HCTZ. If Scr is within 1.0-1.3 tomorrow, consider restarting HCTZ. Recommend adjusting home medication list to remove meclizine (risk > benefit, even though rarelyused). Agree with multimodal analgesia (APAP, topicals, ice, low dose oxycodone for breakthrough pain). Recommend getting up to chair as much as possible during daytime hours; if pain is limiting comfortin the chair, consider use of a roho cushion. The above plan of care was discussed with Dr. Anastacio Bejarano, HIM data security consultant. I personally spent a total of 35 minutes providing and coordinating care today. Thank you for the opportunity to care for this patient. We will continue to follow with you. If Mrs. Leon remains stable on 03/06 we will consider signing off. Please page the Geriatrics Consult Service at [phone] with any questions or concerns. * Melisa Erwin M.D. - 03/05/2024 10:27 AM CDT Trauma Surgery Progress Note Admission Date/Time: 03/02/2024 10:47 PM Trauma Level: Green Mechanism of Injury: Fall down stairs; approximately 2 steps. HPI: Ms. Leon is a 89 y.o. female who and acute comminuted displaced right superior pubic rami fracture right inferior pubic rami fracture and intramuscular hematoma due to ground level fall. Incidental Findings: 10 mm hypervascular lesion in the pancreatic head (), unchanged since CT 02/03/2007 results were discussed with the patient recommend ongoing monitoring with primary care provider Injuries Identified To Date: Right obturator internus suggestive of muscular hematoma measuring approximately 4.8 x 2.6 x 4.3 cm Acute comminuted and displaced right superior, inferior, and pubic body fractures. SUBJECTIVE Patient's pain control has improved. She was able to mobilize out of bed yesterday. Had 1 small bowel movement yesterday night. Orthostatic vital signs obtained this morning; standing blood pressure 140/48, sitting 160/58. She required intermittent catheterization 1 time yesterday, but subsequentlyhas been able to void independently. OBJECTIVE I/O 03/03 0703/04 0703/04 0703/05 0703/05 0703/06 0700 P.O. 360 950 520 Maintenance IV 400 Total Intake 760 950 520 Urine 600 1350 375 Stool 0 0 Total Output 600 1350 375 Net +160 -400 +145 Unmeasured Stool Occurrence 1 x 1 x Physical Exam General: Not in acute distress Respiratory: Nonlabored breathing on room air Abdomen: Soft, nondistended, nontender Extremities: Bilateral lower extremities without pitting edema. Right elbow with 3 cm superficial laceration and peeling of epidermis. Lab Review: Recent Results (from the past 24 hour(s)) CBC without Differential Collection Time: 03/05/24 10:36 AM Result Value Hemoglobin 9.8 (L) Hematocrit 29.3 (L) Erythrocytes 3.23 (L) MCV 90.7 RBC Distrib Width 12.9 Platelet Count 146 (L) Leukocytes 7.3 Basic Metabolic Panel Collection Time: 03/05/24 10:36 AM Result Value Potassium, S 4.4 Sodium, S 131 (L) Chloride, S 95 (L) Bicarbonate, S 23 Anion Gap 13 BUN (Blood Urea Nitrogen), S 32 (H) Creatinine 1.27 (H) Estimated GFR (eGFR) 41 (L) Calcium, Total, S 9.2 Glucose, S 123 Consult Orders: IP CONSULT TO ORTHOPEDIC SURGERY IP CONSULT TO TRAUMA CRITICAL CARE AND GENERAL SURGERY IP CONSULT TO HOSPITAL INTERNAL MEDICINE IP CONSULT TO CARE MANAGEMENT IP CONSULT TO RADIO SURVEY WORKER BLOOD BANK SPECIALIST IP CONSULT TO [facility] WOUND CARE ASSESSMENT / PLAN 03/05: Patient is overall doing well. Continues to have orthostatic hypotension based on vitals thismorning. Tolerating oral intake and urinating adequately. We will follow up her a.m. labs. Continueholding her home antihypertensives. She should mobilize as much as possible today. On 03/06 if creatinine ok, consider starting her HCTZ and holding her lisinopril until PCP follow up. Referrals to [facility] have been sent for discharge. Today's Plan - 03/06 if creatinine ok, consider starting her HCTZ and holding her lisinopril until PCP follow up - continue mobilizing with physical therapy - continue to hold hypertension medications in light of orthostatic hypotension - trend hemoglobin, creatinine for pelvic hematoma and RODOLFO respectively - monitor for bowel movement. Dispo: [facility] referrals sent. #1 History Of Falling - TTS: completed 03/03 - SAS: completed 03/03 - Care management consulted for disposition assistance - PT/OT consulted for safety evaluation #2 Fracture Pelvis Other Parts Closed Initial (HCC) Acute comminuted and displaced right superior, inferior, and pubic body fractures - OTS-3 (77875) consulted; not following - OTS-3 defers admission to their service given pelvic bleeding secondary to solitary pelvic injuries - Non-operative management at this juncture - Activity: RLE WBAT #[address] Pelvis Imaging: Multifocal sites of active arterial extravasation arising from the replaced leftobturator, right obturator, and right medial circumflex femoral arteries. All sites treated with Gelfoam embolization. - follow hemoglobin #3 Vertigo Benign Paroxysmal Positional Bilateral #4 Vertigo - Fall risk precautions in place - Holding meclizine #5 Neuropathy Peripheral #6 Mononeuropathy Lower Limb Right - Per Geriatric recommendations, obtain repeat B12 (last checked 2013) - Gabapentin (Neurontin) 100 mg capsule and med list, however patient reports rarely taking #7 Osteoporosis - Restarted: Calcium carbonate-vitamin D3 - Holding: -- Alendronate (FOSAMAX) 70 mg tablet; not started #8 Arthritis Rheumatoid (HCC) - Holding NSAIDS #3 Hypertension - Obtain orthostatic vital signs #9 Lesion Pancreas Incidental finding on CT imagin mm hypervascular lesion in the pancreatic head (), unchanged since CT 02/03/2007 - No follow-up necessary given no changes in the last 17 years #3 Failure Renal Acute (Acute Kidney Injury) ([facility]) Creatinine on admission 1.3 versus baseline 0.9 - Avoid nephrotoxic agents including NSAIDs - Hold the following medications given decreased renal functioning: -- Losartan (COZAAR) 25 mg tablet; not started -- Hydrochlorothiazide (HYDRODIURIL) 12.5 mg tablet; not started If you have any questions or concerns regarding the cares of Ms. Leon, please contact Trauma Surgery at [phone]. * Sallie Atkinson R.N., C.W.C.N. - 03/05/2024 9:[address] [facility] Wound RN consulted to assess Kathryn Leon skin alterations. Wound assessment, pain, and Robel score noted in the flowsheet. The patient consented to photography of the affected area for clinical trending purposes. Images were taken and are available in [employer]. History: Per provider note, patient is an 89 y.o. female admitted on 03/02/2024 after a fall. She sustained pubic rami fracture and underwent embolization of obturator vessel. Fractures are treated nonoperatively. She has significant medical comorbidities of HTN, RA not on txt, osteoporosis, glaucoma, GERD, peripheral neuropathy, and recurrent BPPV. Assessment: The patient was assessed while sitting at the edge of the bed. Upon assessment, a type 1 skin tear is noted on the right elbow with purple and pink tissue present. The skin flap is fully adhered to the wound bed yet appears dusky. 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 The patient had previously been using a chemotherapy ointment and covering with a foam dressing. Per patient report, she has completed the recommended 6 week treatment. Therefore, treatment to transition to Therahoney covered with a foam dressing; change every three days. 03/05/24 0809 Wound 03/04/24 Skin Tear Skin tear Type 1 (No skin loss) Elbow Right Date First Assessed/Time First Assessed: 03/04/24 (c) 1500 Primary Wound Type: Skin Tear Skin Tear Type: Skin tear Type 1 (No skin loss) Location: Elbow Wound Location Orientation: (c) Right *Shape Irregular *Wound Bed Purple;Ursina;Red Tissue Exposed None Odor None *Exudate Amount None Tonya-wound Assessment Ecchymotic;Edema Treatments Cleansed Periwound Treatment Cleansed (Comment) Wound Cleansed with Wound cleanser *Primary Dressing Silver;Foam *Primary Dressing Frequency of Change Every third day & PRN Primary Dressing Changed New Primary Dressing Status Clean;Dry;Intact Changed by Wound tobacco checkout clerk Wound 03/05/24 Cancer Lesion/Malignant Pretibial Right Date First Assessed/Time First Assessed: 03/05/24 0858 Present on Original Admission: Yes Primary Wound Type: Cancer Lesion/Malignant Location: Pretibial Wound Location Orientation: Right *Shape Round / oval *Wound Bed Open;Brown;Red Tissue Exposed None Odor None *Exudate Amount Small Drainage Description Serosanguineous Tonya-wound Assessment White;Fragile Treatments Cleansed Periwound Treatment Cleansed (Comment) Wound Cleansed with Wound cleanser *Primary Dressing Medical grade honey *Primary Dressing Frequency of Change Every third day & PRN Primary Dressing Changed New Primary Dressing Status Clean;Dry;Intact *Secondary Dressing Foam *Secondary Dressing Frequency of Change Every third day & PRN Secondary Dressing Changed New Secondary Dressing Status Clean;Dry;Intact Head to toe skin assessment completed and no other concerns. A coccyx dimple is noted within the gluteal cleft presenting similarly to a healed pilonidal cyst. No opening or drainage at this time. DRESSING RECOMMENDATIONS: #1 Skin Tear Skin tear Type 1 (No skin loss) Elbow Right -Cleanse the area with Vashe wound cleanser. Pat dry. -Apply a Mepilex Ag foam. -Change every 3 days and PRN. -Secure with tubular netting. #2 Cancer Lesion/Malignant Pretibial Right -Cleanse the wound with Vashe wound cleanser. Pat dry. -Apply a small amount of Therahoney every 3 days. -Cover with a 4x4 Mepilex border. -Change every 3 days and PRN. Recommended interventions for pressure redistribution and shear reduction: Offload heels on pillows at all times when in bed. Full 30 degree turns side to side every 2 hours with supine positioning only for meals. Reposition at least every hour while in the chair. Reposition medical devices per policy. Assess and pad the skin under and surrounding the medical devices with a prophylactic foam dressing. Keep the HOB below 30 degrees except for meals unless medically contraindicated. Apply a prophylactic sacral Mepilex?? border dressing to cover the coccyx/sacral area. Ensure the dressing is in full contact with the skin to prevent moisture- related skin breakdown. Lift twice daily to assess when used for prevention. Change every 3 days and PRN. Recommended interventions for moisture control: InterDry?? Ag placed between folds. Allow at least 2 inches of fabric exposed to air on at least one side of the skin fold for moisture evaporation. Can be used up to 5 days unless soiled with stool or urine. Do not rinse with water. Utilize the breathable incontinence underpads while in bed. Adult briefs should only be worn while ambulating or in the chair. Cleanse with foaming cleanser or wipes after each incontinence episode and for routine hygiene cares. Consult recommendations: NA Education: Discussed the plan of care with the patient and nursing. They agree to the plan. The [facility] RN will sign-off. Please place a wound care consult for any new concerns. * Sree Zaidi M.D. - 03/04/2024 6:25 PM CDT I saw and examined the patient along with the resident/LANDSCAPE CREW LEADER-PA team and agree with the findings and recommendations in their note. I reviewed pertinent history, physical exam, labs, and imaging. Ms. Kathryn Leon is a 89 y.o. female admitted on 03/02/2024 after a fall. She sustained pubic rami fracture and underwent embolization of obturator vessel. Fractures are treated nonoperatively. She is working with PT/OT and is medically appropriate for discharge. Sree Zaidi MD, FACS Retirement Plan Specialist rail signal mechanic, [facility] [employer] Division of Trauma, Critical Care and General Surgery; Department of Surgery (Pager) (office) fax [email or web address] * Melisa Erwin M.D. - 03/04/2024 3:54 PM CDT Trauma Surgery Progress Note Admission Date/Time: 03/02/2024 10:47 PM Trauma Level: Green Mechanism of Injury: Fall down stairs; approximately 2 steps. HPI: Ms. Leon is a 89 y.o. female who and acute comminuted displaced right superior pubic rami fracture right inferior pubic rami fracture and intramuscular hematoma due to ground level fall. Incidental Findings: 10 mm hypervascular lesion in the pancreatic head (3/274), unchanged since CT 02/03/2007 results were discussed with the patient recommend ongoing monitoring with primary care provider Injuries Identified To Date: Right obturator internus suggestive of muscular hematoma measuring approximately 4.8 x 2.6 x 4.3 cm Acute comminuted and displaced right superior, inferior, and pubic body fractures. SUBJECTIVE Patient reports some right hip pain. Denies any abdominal pain, nausea, or vomiting. Denies any newconcerns. Feels motivated to mobilize out of bed. OBJECTIVE I/O 03/02 0703/03 0703/03 0703/04 0703/04 0703/05 0700 P.O. 360 530 Maintenance IV 400 Total Intake 760 530 Urine 600 250 Total Output 600 250 Net +160 +280 Physical Exam General: Not in acute distress Respiratory: Nonlabored breathing on room air Abdomen: Soft, nondistended, nontender Extremities: Bilateral lower extremities without pitting edema. Right elbow with 3 cm superficial laceration and peeling of epidermis, bacitracin and Mepilex applied. Lab Review: Recent Results (from the past 24 hour(s)) Basic Metabolic Panel Collection Time: 03/03/24 8:16 PM Result Value Potassium, S 4.2 Sodium, S 134 (L) Chloride, S 96 (L) Bicarbonate, S 27 Anion Gap 11 BUN (Blood Urea Nitrogen), S 21 Creatinine 1.17 (H) Estimated GFR (eGFR) 45 (L) Calcium, Total, S 9.7 Glucose, S 158 (H) CBC without Differential Collection Time: 03/03/24 8:16 PM Result Value Hemoglobin 11.3 (L) Hematocrit 32.9 (L) Erythrocytes 3.68 (L) MCV 89.4 RBC Distrib Width 12.9 Platelet Count 152 (L) Leukocytes 7.8 Basic Metabolic Panel Collection Time: 03/03/24 8:16 PM Result Value Potassium, S 4.2 Sodium, S 134 (L) Chloride, S 95 (L) Bicarbonate, S 26 Anion Gap 13 BUN (Blood Urea Nitrogen), S 21 Creatinine 1.14 (H) Estimated GFR (eGFR) 47 (L) Calcium, Total, S 9.7 Glucose, S 160 (H) Vitamin B12 Assay Collection Time: 03/03/24 8:16 PM Result Value Vitamin B12 Assay, S 1299 (H) Hemoglobin Collection Time: 03/04/24 2:02 AM Result Value Hemoglobin 10.5 (L) Hemoglobin Collection Time: 03/04/24 6:38 AM Result Value Hemoglobin 10.4 (L) Consult Orders: IP CONSULT TO ORTHOPEDIC SURGERY IP CONSULT TO TRAUMA CRITICAL CARE AND GENERAL SURGERY IP CONSULT TO HOSPITAL INTERNAL MEDICINE IP CONSULT TO CARE MANAGEMENT IP CONSULT TO RADIO SURVEY WORKER BLOOD BANK SPECIALIST ASSESSMENT / PLAN 03/04: Patient is doing well this morning. Her hemoglobin has remained stable at 10.4 this morning from 10.5 overnight and 11.3 at 8:00 p.m. yesterday. Her RODOLFO is improving with creatinine of 1.14 last night from 1.13 the day prior. We will continue to monitor this. She has not yet voided following removal of her Rico catheter this morning. We will have her attempt to void again soon following inc reased oral intake, but she may require I/O catheterization or bolus. At that time, could consider rechecking electrolytes to monitor renal function. She may benefit from trying a suppository tonightto encourage bowel movement. Today's Plan - follow up ability to void following urinary catheter removal. - continue mobilizing with physical therapy - continue to hold hypertension medications - trend hemoglobin, creatinine for pelvic hematoma and RODOLFO respectively - monitor for bowel movement. - bacitracin and Mepilex to right elbow superficial laceration. Dispo: [facility] referrals sent. #1 History Of Falling - TTS: completed 03/03 - SAS: completed 03/03 - Care management consulted for disposition assistance - PT/OT consulted for safety evaluation #2 Fracture Pelvis Other Parts Closed Initial (HCC) Acute comminuted and displaced right superior, inferior, and pubic body fractures - OTS-3 (69960) consulted; not following - OTS-3 defers admission to their service given pelvic bleeding secondary to solitary pelvic injuries - Non-operative management at this juncture - Activity: RLE WBAT #[address] Pelvis Imaging: Multifocal sites of active arterial extravasation arising from the replaced leftobturator, right obturator, and right medial circumflex femoral arteries. All sites treated with Gelfoam embolization. - follow hemoglobin #3 Vertigo Benign Paroxysmal Positional Bilateral #4 Vertigo - Fall risk precautions in place - Holding meclizine #5 Neuropathy Peripheral #6 Mononeuropathy Lower Limb Right - Per Geriatric recommendations, obtain repeat B12 (last checked 2013) - Gabapentin (Neurontin) 100 mg capsule and med list, however patient reports rarely taking #7 Osteoporosis - Restarted: Calcium carbonate-vitamin D3 - Holding: -- Alendronate (FOSAMAX) 70 mg tablet; not started #8 Arthritis Rheumatoid (HCC) - Holding NSAIDS #3 Hypertension - Obtain orthostatic vital signs #9 Lesion Pancreas Incidental finding on CT imagin mm hypervascular lesion in the pancreatic head (), unchanged since CT 02/03/2007 - No follow-up necessary given no changes in the last 17 years #3 Failure Renal Acute (Acute Kidney Injury) ([facility]) Creatinine on admission 1.3 versus baseline 0.9 - Avoid nephrotoxic agents including NSAIDs - Hold the following medications given decreased renal functioning: -- Losartan (COZAAR) 25 mg tablet; not started -- Hydrochlorothiazide (HYDRODIURIL) 12.5 mg tablet; not started If you have any questions or concerns regarding the cares of Ms. Leon, please contact Trauma Surgery at [phone]. * Danielito Lira, P.T., D.P.T. - 03/04/2024 12:47 PM CDT Physical Therapy Inpatient Treatment SUBJECTIVE Patient's Name: Kathryn Leon Referring/Attending Provider: Sree Zaidi M.D. Reason for Referral: Physical Therapy Evaluate and Treat History of Present Illness: Kathryn Leon is a 89 y.o. female who was admitted to [facility] in [place] on 03/02/2024 for Fracture Pelvis Other Parts Closed Initial (HCC) [S32.89XA] Precautions Weight Bearing Status: WBAT RLE Other Precautions: Fall precautions Pain Assessment: Patient reported having no pain at rest, 6/10 pain to the right pelvis with weight bearing activity. PT session had been coordinated with nursing so that patient had received pain medication prior totherapy. Patient/Caregiver Goals: Return to home and Return to prior level of function Subjective Comments: Patient agreed to session. OBJECTIVE Vital Signs Pre-Activity: Pulse Rate: 83 bpm Blood Pressure: 138/61 (79) mmHg Post Activity: Pulse Rate: 93 bpm Blood Pressure: 151/62 (85) mmHg Outcome Measures: -[facility] Inpatient Short Form: -[facility] Basic Mobility (V.2) How much help from another person do you currently need???If the patient hasn't done an activity recently, how much help from another person do you think he/she would needif he/she tried? 1. Turning from your back to your side while in a flat bed without using bedrails?: A Lot 2. Moving from lying on your back to sitting on the side of a flat bed without using bedrails?: A Lot 3. Moving to and from a bed to a chair (including a wheelchair)?: A Little 4. Standing up from a chair using your arms (e.g., wheelchair, or bedside chair)?: A Little 5. To walk in hospital room?: A Little 6. Climbing 3-5 steps with a railing?: Total -[facility] Basic Mobility (V.2) Raw Score: 14 -[facility] Basic Mobility (V.2) Standardized Score: 35.55 Interpretation: Based on scoring guidelines using the raw score value: Those going to home had an average score at or above 18 Those going to facility had an average score at or below 17 Clinicians answer the -[facility] Inpatient Short Form based on observed patient activity and/or clinical judgement (ie. patient can be scored without physically performing each activity) Therapeutic Interventions: SIT TO STAND: Assistance Level: Minimal Assistance of 1 Device: gait belt and front wheeled walker Surface: Chair Assistance/Cueing: verbal for Anterior weight shifting, Sequencing, Technique, and Upper extremity placement STAND TO SIT: Assistance Level: Minimal Assistance of 1 Device: gait belt and front wheeled walker Surface: Chair Assistance/Cueing: verbal for Alignment with seated surface, Eccentric control, and Upper extremityplacement GAIT: Distance: 0.3 meters Assistance Level:Minimal Assistance of 1 Device: gait belt and front wheeled walker Quality: antalgic, decreased gait speed, decreased stance time Right, decreased step length, decreased weight bearing tolerance, guarded, shuffling Assistance/Cueing: step by step verbal cues provided for sequencing with emphasis on weight bearingthrough upper extremities into walker during single limb support on the right to help with offloading and pain control. Comments: Patient unable to fully lift either of her feet off the floor but able to unweight them sufficiently to take a few very short, shuffled steps forward. Distance/tolerance was limited due to pain (rated 6/10) and fatigue - patient noting her upper extremities became quite tired. The patient's status was discussed and the following coordination of care occurred with the drop forger/Caregiver Present: No Patient was left in bedside chair at end of session with call light in reach, all needs met and questions answered. Assessment Discharge Therapy Needs - PT: Ongoing skilled physical therapy If skilled therapy is recommended, skilled therapy can include physical therapy provided by home health, outpatient clinic, or a post-acute facility. The location of these services is determined by the patient's care team in partnership with patient/family. Level of Care Needed - PT: Assistance with bed mobility, Assistance with transfers, Assistance withwalking and moving around the home, Assistance with stairs, Physical assistance needed Equipment Recommended - PT: Front-wheeled walker Barriers to Discharge Home: Current functional status, Fall risk, Inaccessible home environment, Limited caregiver availability Clinical Impression: Kathryn is demonstrating gradual progress from a functional mobility perspective. She stood with minimal assistance today but had more difficulty taking steps - was unable to lift either foot fully off the floor but was able to take a few very short, shuffled forward steps. Her ambulation distance/tolerance was limited due to pain and upper extremity fatigue from using the walker to offload her right lower extremity. No dizziness/light headedness noted today and she remained vitally stable. She remains well below her functional baseline and would benefit from continued physical therapy tofurther optimize her safety and independence with mobility. Rehab potential: Ms. Leon has Good potential to achieve established physical therapy goals within the time frame outlined below. Progress: Slow progress, limited activity tolerance Plan PT Plan Comments: Progress bed mobility, transfer training and gait training as tolerated. Coordinate with nursing to ensure pain medication on board prior to session. Functional Goals: PT Inpatient Goals PT Goal #1: Patient will complete supine to/from sitting transitions with modified independence while maintaining activity precautions to demonstrate return to functional baseline PT Goal #1 Status: Ongoing PT Goal #2: Patient will complete sit to/from stand transitions with modified independence using least restrictive assistive device while maintaining activity precautions to demonstrate progression toward functional baseline PT Goal #2 Status: Slowly progressing PT Goal #3: Patient will ambulate 35 m with modified independence using least restrictive assistivedevice while maintaining activity precautions to demonstrate progression toward functional baselineand enable safe household distance ambulation PT Goal #3 Status: Slowly progressing PT Goal #4: Patient will negotiate 4 stairs with modified independence using least restrictive assistive device while maintaining activity precautions to enable safe entrance into the home PT Goal #4 Status: Ongoing Treatment Plan: Plan: Continue with current plan PT Frequency: 5 times per week PT Inpatient Duration : Until goals are met or hospital discharge Requires Inpatient Follow-Up: Yes PT - Next Inpatient Appointment: 03/05/24 Patient agrees with the plan of care and goals. Treatment interventions may include: Treatment/Interventions: Therapeutic exercise, Therapeutic functional activity, Neuromuscular re-education, Gait training, Self-care/home management Billing: Time Spent with Patient Therapeutic Interventions Gait Training (min): 19 min Time Tracking Total Timed Units (min): 19 min Total Treatment Time (min): 19 min Danielito Lira P.T., D.P.T. * Aries Reynoso Pharm.D., R.Ph., BCPS - 03/04/2024 10:35 AM CDT Pharmacist Progress Note Reason for admission: Fracture Pelvis Other Parts Closed Initial (HCC) [S32.89XA] PMH: Patient Active Problem List Diagnosis Arthritis Rheumatoid (HCC) Vertigo Vertigo Benign Paroxysmal Positional Bilateral Osteoporosis Fracture Pelvis Other Parts Closed Initial (HCC) Loss Hearing Sensorineural Bilateral Gastroesophageal Reflux Disease NOS Neuropathy Peripheral Mononeuropathy Lower Limb Right History Of Falling Hemorrhage Lesion Pancreas Failure Renal Acute (Acute Kidney Injury) (HCC) OBJECTIVE Home medications: Held: ASA, Alendronate, colchicine, gabapentin, HCTZ, losartan Changed: none Patient own medications: none Prophylaxis: Enoxaparin 30 units BID ASSESSMENT / PLAN Home medications appropriately resumed. RODOLFO, Scr 1.3 on admit, down to 1.14 last PM. Medications appropriately dosed at this time. Medications and laboratory data have been reviewed. Pharmacy will continue to follow for medicationuse optimization. Changes to medications anticipated at discharge:TBD Aries Reynoso Pharm.D., R.Ph., BCPS * Renee Rios P.A.-C., M.S. - 03/04/2024 9:31 AM CDT SUBJECTIVE Ms. Kathryn Leon is post procedure day 1 after pelvic angiogram with Gelfoam embolizationof multifocal sites of active arterial extravasation performed 03/03/2024 in vascular IR with Dr. Bianchi. Met with patient bedside this morning. She reports if she does not move she does not have any pain.She has not been up yet to the chair. She denies any significant pain at the right groin puncture site. Vitals this morning stable. Hemoglobin dropped from 11.3 last evening to 10.5 overnight, but stable at 10.4 this morning. OBJECTIVE Current VITAL SIGNS Height: 167.6 cm, Blood Pressure: (!) 142/50, Heart Rate: 86, Pulse Rate: 71, Resp Rate: 16, Temperature: 36.4 ??C, SpO2: 97 % PHYSICAL EXAM General: Awake, alert, no apparent distress Extremity: Right groin common femoral artery puncture site is soft without signs of hematoma. Overlying dressing is clean, dry, intact. Bilateral lower extremity distal pulses are equal and palpable. DIAGNOSTICS Lab Results Component Value Date/Time HGB 10.4 (L) 03/04/2024 06:38 AM HGB 13.3 11/01/2020 02:06 PM HCT 32.9 (L) 03/03/2024 08:16 PM HCT 40.0 11/01/2020 02:06 PM HCTPOC 35.0 (L) 03/03/2024 03:12 AM PLT 152 (L) 03/03/2024 08:16 PM PLT 158 11/01/2020 02:06 PM INR 1.0 10/30/2015 10:33 AM , Lab Results Component Value Date/Time ALBUMIN 4.1 11/01/2020 02:06 PM ALBUMIN 4.0 05/12/2019 07:08 PM ALKPHOS 72 11/01/2020 02:06 PM ALKPHOS 67 05/12/2019 07:08 PM ALT 127 (H) 11/01/2020 02:06 PM ALT 81 (H) 05/12/2019 07:08 PM ALT 100 (H) 10/30/2015 10:33 AM AST 87 (H) 11/01/2020 02:06 PM AST 44 (H) 05/12/2019 07:08 PM AST 55 (H) 10/30/2015 10:33 AM BILIDIR <0.1 11/15/2019 01:09 PM BILITOT <0.7 11/01/2020 02:06 PM BILITOT 0.4 05/12/2019 07:08 PM BUN 21 03/03/2024 08:16 PM BUN 21 03/03/2024 08:16 PM BUN 25 (H) 03/02/2024 11:55 PM CREATININE 1.17 (H) 03/03/2024 08:16 PM CREATININE 1.14 (H) 03/03/2024 08:16 PM CREATININE 1.31 (H) 03/02/2024 11:55 PM EGFRNONBLKAA 56 (L) 01/29/2021 09:15 PM EGFRNONBLKAA 68 05/14/2019 06:56 AM EGFR 45 (L) 03/03/2024 08:16 PM EGFR 47 (L) 03/03/2024 08:16 PM EGFR 39 (L) 03/02/2024 11:55 PM CRP 2.8 11/01/2020 02:06 PM TROPONINT <0.01 04/07/2016 11:05 AM ASSESSMENT / PLAN 89-year-old female admitted with traumatic pelvic fracture sustained after a fall. She was found tohave evidence of active arterial bleeding on CT and was referred to IR for potential intervention. She underwent pelvic angiogram with Gelfoam embolization of multifocal sites of active arterial extravasation arising from the left replaced obturator, right obturator, and right medial circumflex femoral arteries performed 03/03/2024 in vascular IR with Dr. Bianchi. Access was obtained via rightgroin common femoral artery and hemostasis achieved via Angio-Seal device. He tolerated the procedure well without immediate complications. Please see procedure note for details. This morning she is doing relatively well. Hemoglobin seems to be stabilized at 10.4 and she is vitally stable. No concerns for hematoma at the right groin puncture site. IR team will sign off. Please do not hesitate to contact us with any questions or concerns. Please see AVS for routine groin puncture site restrictions and cares. Thank you for the opportunity to participate in this patient's care. Please feel free to page [phone] or [phone] after 5 PM and on weekends with additional questions. Renee Rios P.A.-C. MDannS. * Jessie Kidd P.A.-C. - 03/04/2024 7:38 AM CDT Geriatrics Consult - Progress Note SUBJECTIVE Mrs. Leon was seen and evaluated by the Geriatric Medicine Consult service this morning. She wasdoing well and excited as she had taken a few steps under the guidance of PT/OT. She feels pain is well controlled. She is planning for d/c to SNF when appropriate for discharge. No new concerns or symptoms to report. I have reviewed the current medication list. OBJECTIVE VITAL SIGNS Temperature: [36.2 ??C-36.6 ??C] 36.6 ??C Heart Rate: [71-86] 86 Resp Rate: [10-16] 16 Blood Pressure: (98-165)/(48-73) 136/57 SpO2: [93 %-100 %] 100 % Flow Rate (L/min): [1 L/min] 1 L/min Pulse Rate: [67-87] 77 PHYSICAL EXAM General: Well developed. No acute distress. Skin: Warm, pink, dry, and well perfused. HEENT: Head normocephalic and atraumatic. Conjunctivae clear and sclerae anicteric. Hearing and vision grossly intact. Heart: Trace bilateral lower extremity edema which she states is baseline Lungs: Respirations even and non-labored on room air. Abdomen: Soft, nontender, nondistended. Normoactive bowel sounds x 4 quadrants. Neuro: A&Ox3. Responds appropriately to questions.CAM negative. DIAGNOSTICS I have independently reviewed the labs, imaging, diagnostics, microbiology, and the medical record. ASSESSMENT / PLAN [facility]. Leon [facility] for evaluation and management of: History Of Falling # Fall down stairs on 03/02 c/b acute superior and inferior right pelvic fractures with adjacent hematoma and evidence of active bleeding into the space of Retzius and intramuscular hematomas involving the right obturator externus and internus s/p Gelfoam embolization of the left obturator, right obturator, and right medial circumflex femoral arteries # ABLA # RODOLFO vs CKD (Scr 0.90 in 2020) # HTN # RA not on txt # Osteoporosis # Recurrent vertigo (BPPV) # GERD # Hx of peripheral neuropathy on B12 supplementation # 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 Kathryn Leon is an 89 y.o. female who was initially admitted to the Medicine 1 service on 03/03/2024 after presenting to the [facility] Emergency Department (ED) on 03/02/2024 s/p fall down her stairs (missed a step while descending, landed on her back and fell down). She hassignificant medical comorbidities of HTN, RA not on txt, osteoporosis, glaucoma, GERD, peripheral ne uropathy, and recurrent BPPV. In the ED, Mrs. Leon was hemodynamically stable. Trauma evaluation was notable for acute right pelvic fractures with adjacent hematoma and evidence of active bleeding into the space of Retzius andintramuscular hematomas involving the right obturator externus and internus without evidence of active extravasation. She underwent IR-guided urgent Gelfoam embolization of arterial extravasation arising from the replaced left obturator, right obturator, and right medial circumflex femoral arteries. Hemoglobin intially downtrended from 11 --> 10, but has since remained stable. In light of trauma, she was transferred from the Medicine 1 service to the [facility] service and Geriatric Medicine was consulted on 03/03. No prodromal symptoms prior to the fall. What Matters Most to Ms. Leon: quilting, family, gardening, scientologist community Mentation: no cognitive impairment at baseline; no concerns in hospital Mobility: BMAT 4 at baseline, took 5 steps total with a walker and PT on 03/04 Medications/Medical Issues: Medication review: reconciled Holding: Alendronate, calcium vitamin-D, vitamin B12, iron, Rochelle D, Efudex cream, hydrochlorothiazide, losartan Not taking, still on med list: Aspirin, chlorthalidone, Cosopt drops Takes rarely/PRN.: Colchicine, gabapentin, meclizine Continuing: Restasis drops Relevant acute medical/geriatrics issues: RODOLFO, pubic rami fx, s/p IR embolization Anticipated disposition plan: uncertain, likely [facility] for subacute rehab RECOMMENDATIONS: Trend BMP to evaluate for further improvement in Scr. Continue holding losartan and HCTZ. Obtain orthostatic VS if not already done. Recommend adjusting home medication list to remove meclizine (risk > benefit, even though rarelyused). Agree with multimodal analgesia (APAP, topicals, ice, low dose oxycodone for breakthrough pain). Recommend getting up to chair as much as possible during daytime hours; if pain is limiting comfortin the chair, consider use of a roho cushion. The above plan of care was discussed with Dr. Anastacio Bejarano, HIM data security consultant. I personally spent a total of 35 minutes providing and coordinating care today. Thank you for the opportunity to care for this patient. We will continue to follow with you. If Mrs. Leon remains stable on 03/05 we will consider signing off. Please page the Geriatrics Consult Service at [phone] with any questions or concerns. * Rene Geronimo APRN, C.N.P., M.S.N. - 03/03/2024 5:47 PM CDT Trauma Screening and Brief Intervention Screen applied: Audit-C Was intervention required: no Intervention(s) discussed with patient: Not indicated Intervention(s) patient will follow through on: Not indicated Additional referrals made: none Time Spent: Billing codes: 56172 (15-30 mins SAS1) and 85178 (> 30 mins, SAS2) * Rene Geronimo, CYRIL, C.N.P., M.S.N. - 03/03/2024 2:37 PM CDT Trauma Tertiary Survey (Adult) Admission Date/Time: 03/02/2024 10:47 PM Trauma Level: Green Mechanism of Injury: Fall down stairs; approximately 2 steps. HPI: Ms. Leon is a 89 y.o. female who and acute comminuted displaced right superior pubic rami fracture right inferior pubic rami fracture and intramuscular hematoma due to ground level fall. Social History Occupational History Not on file Tobacco Use Smoking status: Never Smokeless tobacco: Never Vaping Use Vaping status: never used Substance and Sexual Activity Alcohol use: Not Currently Drug use: Defer Sexual activity: Yes Allergies Allergen Reactions Gluten Other (see comments) cerner listed no reaction Influenza Virus Vaccines Other (see comments) Miconazole Other (see comments) MICONAZOLE NITRATE Nut - Unspecified Other (see comments) cerner listed no reaction Peanut Hives (Reselect Reaction) and Anaphylaxis History reviewed. No pertinent past medical history. Past Surgical History: Procedure Laterality Date BREAST BIOPSY Right EXTRACAPSULAR CATARACT EXTRACTION AND INSERTION OF INTRAOCULAR LENS N/A 02/26/2007 Extracapsular cataract removal with insertion of intraocular lens prosthesis (1 stage procedure), manual or mechanical technique (eg, irrigation and aspiration or phacoemulsification).. HYSTERECTOMY N/A 11/04/1966 Hysterectomy HYSTERECTOMY 11/04/1966 INTERNAL HEMORRHOIDECTOMY N/A 02/26/1959 Hemorrhoidectomy, internal and external, single column/group;.. OTHER CONVERTED SHX (SEE COMMENT) N/A 02/02/2007 >Esophagogastroduodenoscopy with Biopsies OTHER CONVERTED SHX (SEE COMMENT) N/A 02/15/2010 >1. Right L3 partial hemilaminectomy. 2. Complete L4 hemilaminectomy. REDUCTION MAMMAPLASTY Bilateral 02/26/1982 REDUCTION MAMMAPLASTY Bilateral unknown date REDUCTION MAMMOPLASTY N/A 02/26/1982 Reduction mammaplasty.. REPAIR OF CYSTOCELE N/A 1995 Repair of cystocele Immunization History Administered Date(s) Administered HZV (ZOSTAVAX) 10/02/2010 HepA Adult 12/28/2001, 07/30/2006 HepB (discontinued) adolescent/high risk 12/28/2001, 01/31/2002, 06/29/2006 Hib (PRP-T) (ACTHIB, HIBERIX) 02/01/2007 Influenza (IM) Preservative Free 08/20/2009, 08/20/2009, 08/21/2009, 08/22/2009, 08/23/2009 Influenza, Unspecified 06/26/2010, 09/25/2011, 09/25/2011, 07/27/2012, 07/29/2012, 08/02/2012, 07/01/2013, 07/04/2013, 07/05/2013, 07/26/2014, 07/10/2015, 07/12/2015, 09/23/2016, 09/24/2016 MCV4 (Menactra)(Discontinued) 02/01/2007 MPSV4 02/01/2007 PCV13 07/10/2015 PPSV23 02/01/2007, 02/01/2007 SARS-COV-2 (COVID-19) - MODERNA(Discontinued) 10/18/2020, 11/15/2020, 07/09/2021, 02/12/2022 SARS-COV-2 (COVID-19) - PFIZER BIVALENT TS(Discontinued)(12 YEARS OR OLDER) 07/09/2022 Td (Adult), adsorbed 05/29/2000 Tdap 11/04/2010, 06/17/2011, 02/16/2021 influenza high dose (65 years or older) (PF) 08/26/2017, 08/27/2017, 08/10/2018, 08/11/2018 REVIEW OF SYSTEMS: The following portions of the patient's history were reviewed as appropriate: allergies, current medications, outpatient medications, family history, medical history, social history, surgical history, and problem list. Lab Review: Recent Results (from the past 24 hour(s)) Type and Screen (with Reflex Antibody ID) Collection Time: 03/02/24 11:50 PM Result Value ABORh A Pos Antibody Screen Negative Type & Screen Expiration 03/05/2024 23:59 Testing Location [place] CBC with Differential, Blood Collection Time: 03/02/24 11:55 PM Result Value Hemoglobin 11.6 Hematocrit 34.2 (L) Erythrocytes 3.80 (L) MCV 90.0 RBC Distrib Width 12.9 Platelet Count 151 (L) Leukocytes 7.7 Neutrophils 6.21 Lymphocytes 0.91 (L) Monocytes 0.50 Eosinophils 0.07 Basophils <0.03 Basic Metabolic Panel Collection Time: 03/02/24 11:55 PM Result Value Potassium, P 4.6 Sodium, P 135 Chloride, P 98 Bicarbonate, P 26 Anion Gap, P 11 BUN (Blood Urea Nitrogen), P 25 (H) Creatinine 1.31 (H) Estimated GFR (eGFR) 39 (L) Calcium, Total, P 9.8 Glucose, P 127 Venous Blood Gas and Electrolytes CG8+, POCT Collection Time: 03/03/24 3:12 AM Result Value Sample Site, POCT Venstick pH, Venous, POCT, B 7.36 pCO2, Venous, POCT, B 48 pO2, Venous, POCT, B 26 Base Excess, Venous, POCT, B 2 HCO3, Venous, POCT, B 27 Sodium, POCT, B 133 (L) Potassium, POCT, B 4.4 Calcium, Ionized, POCT, B 5.10 Glucose, POCT, B 112 Hematocrit, POCT, B 35.0 (L) CBC with Differential, Blood Collection Time: 03/03/24 5:20 AM Result Value Hemoglobin 11.9 Hematocrit 35.2 (L) Erythrocytes 3.90 (L) MCV 90.3 RBC Distrib Width 13.0 Platelet Count 134 (L) Leukocytes 8.1 Neutrophils 6.32 Lymphocytes 0.96 Monocytes 0.77 Eosinophils 0.06 Basophils <0.03 Lab Results Component Value Date URINESOURCE Cath Urine 05/15/2013 CLARITYU Clear 04/06/2016 LEUKOCYTESU Negative 04/06/2016 GLUCOSEU Negative 04/06/2016 KETONESU Negative 04/06/2016 SPECGRAV 1.010 04/06/2016 UROBILINOGEN 0.2 04/06/2016 Vital Signs: BP (!) 165/61 Pulse 73 Temp 36.4 ??C (Oral) Resp 12 LMP (LMP Unknown) SpO2 98% PHYSICAL EXAM: General: Resting in bed comfortably, in no acute distress, appears nontoxic Head: Normocephalic, atraumatic, Scalp: Atraumatic, no ecchymosis or abrasion Eyes: Pupil 5 mm reactive to light on left side, known eye brow droop. 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 Ears: Hearing grossly intact, no hemotympanum Nose: Septum midline, mucous membranes pink/dry Mouth/Throat: No malocclusion or laceration, mucous membranes pink moist Neck: Supple, trachea midline, nontender to palpation Cervical Spine: No tenderness to palpation no pain flexion or extension, no pain with axial load Heart: No pericardial heave lift, normal rate and rhythm Chest/Lungs: Symmetrical chest expansion, normal work of breathing, on room air, bilateral breath sounds clear follow up Abdomen: Atraumatic, no ecchymosis, laceration, bowel sounds present in all 4 quadrants, soft, slight tenderness to right upper quadrant, nondistended Back: No ecchymosis, laceration, step-offs or deformities Pelvis/Perineum: Deferred assessing pelvis stabilization she has no fractures and recent embolization. No blood present the perineum. Upper Extremities: Right upper extremity with split-thickness skin tear. Normal range of motion, strong radial pulse, sensation remains intact. Left upper extremity atraumatic, no deformities, strongradial pulse, sensation remains intact Lower Extremities: Right lower extremity with known neuropathy, limited range of motion, slight pain to palpation to the right upper thigh near groin. Left lower extremity no pain to palpation, deformity or laceration, normal range of motion GCS: 15, Psych/Behavior: Alert and oriented to person place and time, RASS 0. Answering questions appropriately Imaging: CT Pelvis Musculoskeletal without IV Contrast Result Date: 03/03/2024 Acute comminuted and displaced right superior pubic ramus fracture with extension through the pubicbody. Additional mildly comminuted nondisplaced right inferior pubic [...] Hamstring enthesopathy at the origin and laterally. IR Pelvic Artery Embolization Result Date: 03/03/2024 Multifocal sites of active arterial extravasation arising from the replaced left obturator, right obturator, and right medial circumflex femoral arteries. All sites treated with Gelfoam embolization. DX Hip And Pelvis Right 2-3 Views Result Date: 03/03/2024 Acute, comminuted, mildly displaced fractures of the right superior and inferior pubic rami. No additional fractures. Right hip alignment is maintained. Degenerative changes of the lower lumbar spine, hips, SI joints and pubic symphysis. Vascular calcifications. DX Elbow Right 3+ Views Result Date: 03/03/2024 No comparison. No acute fracture of the right elbow. Radiocapitellar alignment is maintained. No joint effusion. CT Lumbar Spine without IV Contrast Result Date: 03/03/2024 No acute fracture or traumatic malalignment of [...] Right renal cyst. Aortoiliac atherosclerosis. Colonic diverticulosis. CT Thoracic Spine by Reconstruction Result Date: 03/03/2024 No acute fracture or traumatic malalignment of the thoracic spine. Mild chronic depression of the superior endplate of T2. Mild scattered thoracic spondylosis. No high-grade neural foraminal or spinal canal narrowing. Please see separate CT chest, abdomen, and pelvis report for no spine findings. CT Cervical Spine without IV Contrast Result Date: 03/03/2024 No acute fracture or traumatic malalignment of the cervical spine. No prevertebral soft tissue thickening. Tiny osseous fragments along the anterior- superior C4 and C5 vertebral bodies are favored torepresent fractured degenerative osteophytes. Minimal multilevel cervical spondylosis. No high-grade bony neural foraminal or spinal canal stenosis. Amorphous calcification about the dens, which can be seen with hydroxyapatite or calcium pyrophosphate deposition. CT Head without IV Contrast Result Date: 03/03/2024 No acute intracranial hemorrhage, mass effect, or infarct. No acute fracture. Moderate leukoaraiosis and generalized parenchymal volume loss. Intracranial arterial calcifications. Paranasal sinuses are clear. Mastoid air cells are clear and well aerated. Bilateral pseudophakia. CT Chest with IV Contrast Result Date: 03/03/2024 No acute traumatic findings in the thorax. Old rib fractures. Lungs are clear without pleural effusion or consolidation. Bibasilar atelectasis or scarring. No significant pulmonary nodules. Mosaic attenuation likely secondary to air trapping. Left lower lobe calcified granuloma. No thoracic lymphadenopathy by size criteria. Cardiac size is normal without pericardial effusion. No acute vascular abnormality. Moderate esophageal hiatal hernia. CT Abdomen Pelvis with IV Contrast Result Date: 03/03/2024 Redemonstrated acute comminuted and displaced right superior, [...] Bilateral renal cysts. Moderately distended urinary bladder. Col onic diverticulosis without evidence of diverticulitis. Normal caliber bowel without evidence of obstruction. Normal appendix. No abdominopelvic lymphadenopathy by size criteria. Please see separate CT thoracic and lumbar spine reports for spinal findings. Findings were discussed with See Mcfarland M.D. (Pager [phone]) on 03/03/2024 2:19 AM Incidental Findings: 10 mm hypervascular lesion in the pancreatic head (3/274), unchanged since CT 02/03/2007 results were discussed with the patient recommend ongoing monitoring with primary care provider Injuries Identified To Date: Right obturator internus suggestive of muscular hematoma measuring approximately 4.8 x 2.6 x 4.3 cm Acute comminuted and displaced right superior, inferior, and pubic body fractures. Consult Orders: IP CONSULT TO ORTHOPEDIC SURGERY IP CONSULT TO TRAUMA CRITICAL CARE AND GENERAL SURGERY IP CONSULT TO HOSPITAL INTERNAL MEDICINE C-spine cleared (radiographically and clinically)?: Radiographically and clinically clear Thoracic and Lumbar spine cleared: Radiographically cleared Screening and brief intervention: Completed no interventions IMPRESSION/REPORT/PLAN: #1 History Of Falling - TTS: completed - SAS: completed - Care management consulted for disposition assistance - PT/OT consulted for safety evaluation #2 Fracture Pelvis Other Parts Closed Initial (HCC) Acute comminuted and displaced right superior, inferior, and pubic body fractures - OTS-3 (55459) consulted; not following - OTS-3 defers admission to their service given pelvic bleeding secondary to solitary pelvic injuries - Non-operative management at this juncture - Activity: RLE WBAT #[address] Pelvis Imaging: Multifocal sites of active arterial extravasation arising from the replaced leftobturator, right obturator, and right medial circumflex femoral arteries. All sites treated with Gelfoam embolization. - Repeat hemoglobin tomorrow morning #3 Vertigo Benign Paroxysmal Positional Bilateral #4 Vertigo - Fall risk precautions in place - Holding meclizine #5 Neuropathy Peripheral #6 Mononeuropathy Lower Limb Right - Per Geriatric recommendations, obtain repeat B12 (last checked 2013) - Gabapentin (Neurontin) 100 mg capsule, not yet started #7 Osteoporosis - Restarted: Calcium carbonate-vitamin D3 - Holding: -- Alendronate (FOSAMAX) 70 mg tablet; not started #8 Arthritis Rheumatoid (HCC) - Holding NSAIDS #3 Hypertension - Obtain orthostatic vital signs #9 Lesion Pancreas Incidental finding on CT imagin mm hypervascular lesion in the pancreatic head (), unchanged since CT 02/03/2007 - No follow-up necessary given no changes in the last 17 years #3 Failure Renal Acute (Acute Kidney Injury) ([facility]) Creatinine on admission 1.3 versus baseline 0.9 - Avoid nephrotoxic agents including NSAIDs - Repeat BMP today at 17:00 and tomorrow morning - Hold the following medications given decreased renal functioning: -- Losartan (COZAAR) 25 mg tablet; not started -- Hydrochlorothiazide (HYDRODIURIL) 12.5 mg tablet; not started If you have any questions or concerns regarding the cares of Ms. Leon, please contact Trauma Surgery at [phone]. * Mimi Damico B.M.B.S. - 03/03/2024 6:02 AM CDT Medicine 1 Admission This is a supervisory note. SUBJECTIVE Ms. Leon is a nature 72-year-old lady who presented with a right superior and inferior pubic ramus fracture in the setting of unexplained fall yesterday evening. Her past medical history is significant for osteoporosis (on alendronate), vertigo, hypertension. History of presenting complaint: She describes that she fell while walking backwards down the stairs. She underwent spinal fusion surgery in 2009 and was recommended to navigate the stairs this way. Unfortunately she missed her footing and this resulted in her falling. She experienced immediate right-sided pelvic pain and sought help straightaway. Her clinical course has been complicated by the formation of a pelvic hematoma forwhich she is going to be undergoing IR embolization this morning . She denies any bladder or bowel symptoms. In her usual state of health prior to this incident. On review: Alert, oriented. Pain well controlled. OBJECTIVE VITAL SIGNS Temperature: [36.4 ??C] 36.4 ??C Resp Rate: [16] 16 Blood Pressure: (137-158)/(51-71) 155/62 SpO2: [94 %-100 %] 97 % Pulse Rate: [69-83] 83 PHYSICAL EXAM General: Aler, oriented. Skin: No rashes or lesions. ENT: Hearing grossly intact. Dentition intact. No oral or pharyngeal erythema or lesions noted. Lungs: Clear to auscultation. No wheezes or crackles. Heart: Regular rate and rhythm. No murmurs appreciated. No lower extremity edema. Abdomen: Soft, flat, bowel sounds normoactive, nontender, nondistended, no palpable masses or organomegaly. Lower limbs: Peripheral pulses present bilaterally. ASSESSMENT / PLAN Ms. Leon is a nature 72-year-old lady who presented with a right superior and inferior pubic ramus fracture in the setting of unexplained fall yesterday evening. Her past medical history is significant for osteoporosis (on alendronate), vertigo, hypertension. She describes that she fell while walking backwards down the stairs. She underwent spinal fusion surgery in 2009 and was recommended to navigate the stairs this way. Unfortunately she missed her footing and this resulted in her falling. She experienced immediate right-sided pelvic pain and sought help straightaway. Her clinical course has been complicated by the formation of a pelvic hematoma forwhich she is going to be undergoing IR embolization this morning . She denies any bladder or bowel symptoms. In her usual state of health prior to this incident. Plan: 1) IR embolisation this morning 2) PT once stable. The patient will be reviewed by the Medicine 1 [employer] Specialist this morning. Please contact the [facility] 1 service pager if there are any concerns. Electronically signed by: Elaine Arceo 03/03/24 6:03 AM CDT documented in this encounter H&P Notes * Judit Mccray M.D. - 03/03/2024 4:59 AM CDT RST Medicine 1 ([facility]) Admission Note SUBJECTIVE CHIEF COMPLAINT Right superior and inferior pubic ramus fracture HISTORY OF PRESENT ILLNESS Ms. Kathryn Leon is a 89 y.o. female who presents with Right superior and inferior pubic ramus fracture in setting of fall. Medical comorbidities include osteoporosis on alendronate, rheumatoid arthritis not on treatment, recurrent vertigo, and hypertension. 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 Accordingto patient, she underwent spinal fusion surgery in 2009 and since then has been instructed to walk down the stairs backwards since? She was doing this today at home around 9 PM, and miscalculated a couple of steps, missing the last two steps at home and fell on her back. She lives alone at home, and ambulates at baseline without use of any aids. After fall, she developed right inner groin pain and back pain. Denies hitting her head following the fall. Did develop an abrasion of her right elbow.Was unable to move following the fall, and called [facility] following the fall. Denies tingling of lower extremities. She has been taking her fosfomax as prescribed. Of note, patient is on chlorthalidone, hydrochlorothiazide, and losartan for blood pressure control. On arrival to ED, patient hemodynamically stable. Noted to be on 3L but on my evaluation of patientin the ED she was saturating well on RA. XR hip right notable for acute comminuted mildly displacedfracture of right superior and inferior pubic ramus. CT abdomen pelvis noted hematoma adjacent to pubic fracture with evidence of active bleeding into space of Retzius, intramuscular hematomas involving obturator internus and externus. CT head negative for acute intracranial abnormality. CT lumbar spine and thoracic negative for fracture. Hgb 11.6, Plts 151, Cr 1.31(Cr 0.96 3 years ago). She was evaluated by orthopedic surgery in the ED, who did not recommend operative evaluation-she can be weight bearing per their recs. TCGS was consulted for hematoma, and recommended ED defer to ortho surgery regarding hematoma. ED discussed case with IR, and patient sent to IR embolization of inv olved artery in hematoma. Upon my evaluation, I saw patient in ED prior to her being sent to IR for embolization. Current Outpatient Medications on File Prior to Encounter: chlorthalidone (HYGROTON) 25 mg tablet, Take 1 tablet (25 mg total) by mouth daily., 03/02/2024 gabapentin (Neurontin) 100 mg capsule, hydroCHLOROthiazide (HYDRODIURIL) 12.5 mg tablet, Take 1 tablet (12.5 mg total) by mouth every morning., 03/02/2024 losartan (COZAAR) 25 mg tablet, , 03/02/2024 alendronate (FOSAMAX) 70 mg tablet, TAKE 1 TABLET EVERY 7 DAYS (WEEKLY) ON AN EMPTY STOMACH, REMAINUPRIGHT FOR AT LEAST 30 MINUTES alendronate (FOSAMAX) 70 mg tablet, TAKE 1 TABLET EVERY 7 DAYS (WEEKLY) ON AN EMPTY STOMACH REMAIN UPRIGHT FOR AT LEAST 30 [address] aspirin [address] tablet, Take 81 mg by mouth daily. calcium carbonate-vitamin D3 1,500 mg (600 mg calcium)-10 mcg (400 Unit) per tablet, Take 1 tablet by mouth 2 (two) times a day with meals. colchicine (COLCRYS) 0.6 mg tablet, CYANOCOBALAMIN, VITAMIN B-12, ORAL, Take 1,000 mcg by mouth daily. cycloSPORINE (RESTASIS) 0.05 % ophthalmic emulsion, Administer 1 drop into both eyes 2 (two) times a day. dorzolamide-timoloL (COSOPT) 22.3-6.8 mg/mL ophthalmic solution, Administer 1 drop into the right eye daily. ferrous sulfate 325 mg (65 mg iron) tablet, Take 1 tablet by mouth daily. fexofenadine-pseudoephedrine (ROCHELLE-D) 60-120 mg per 12 hr tablet, Take 1 tablet by mouth 2 (two)times a day. fexofenadine-pseudoephedrine (ROCHELLE-D) 60-120 mg per 12 hr tablet, Take 1 tablet by mouth 2 (two)times a day. fexofenadine-pseudoephedrine (ROCHELLE-D) 60-120 mg per 12 hr tablet, Take 1 tablet by mouth 2 (two)times a day. fexofenadine-pseudoephedrine (ROCHELLE-D) 60-120 mg per 12 hr tablet, Take 1 tablet by mouth 2 (two)times a day. fexofenadine-pseudoephedrine (ROCHELLE-D) 60-120 mg per 12 hr tablet, Take 1 tablet by mouth 2 (two)times a day. fluorouraciL (EFUDEX) 5 % cream, Apply topically twice daily for 46 weeks fluticasone propionate (FLONASE) 50 mcg/actuation nasal spray, Administer 2 sprays into each nostril daily as needed for rhinitis or allergies. (Patient taking differently: Administer 2 sprays into each nostril daily.) meclizine (ANTIVERT) 25 mg tablet, Take 25 mg by mouth as needed. MULTIVITAMIN ORAL, Take 1 tablet by mouth daily. nirmatrelvir-ritonavir (Paxlovid) 150-100 mg dose pack, Take 150 mg nirmatrelvir (one 150 mg tablet) with one 100 mg ritonavir (one 100 mg tablet), with both tablets taken together by mouth twice daily for 5 days omeprazole (PriLOSEC) [address] capsule, Take 1 capsule by mouth daily. OBJECTIVE VITAL SIGNS Temperature: [36.4 ??C] 36.4 ??C Heart Rate: [76-82] 78 Resp Rate: [8-17] 11 Blood Pressure: (134-161)/(51-71) 148/56 SpO2: [94 %-100 %] 100 % Flow Rate (L/min): [3 L/min] 3 L/min Pulse Rate: [69-83] 78 PHYSICAL EXAM General: Alert, interactive, not acutely ill. Skin: skin tear at right elbow Eyes: Pupils equal and round. Sclera anicteric. ENT: Hearing grossly intact. Dentition intact. No oral or pharyngeal erythema or lesions noted. Lymph: No cervical or subclavicular adenopathy. Lungs: Clear to auscultation. No wheezes or crackles. Heart: Regular rate and rhythm. No murmurs appreciated. No lower extremity edema. Abdomen: Soft, flat, bowel sounds normoactive, nontender, nondistended, no palpable masses or organomegaly. Joints: pain at right inner groin, unable to lift right lower extremity Neuro: Cranial nerves II-XII intact. Mental: Mood and affect congruent. Alert and oriented. Attention intact. No evidence of disorganized thinking. 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 DIAGNOSTICS EXAM: DX HIP AND PELVIS RIGHT 2-3 VIEWS IMPRESSION: Acute, comminuted, mildly displaced fractures of the right superior and inferior pubic rami. No additional fractures. Right hip alignment is maintained. Degenerative changes of the lower lumbar spine, hips, SI joints and pubic symphysis. Vascular calcifications. CT ABDOMEN/PELVIS: Redemonstrated acute comminuted and displaced [...] and lumbar spine reports for spinal findings. IMPRESSION: 1. Acute right pelvic fractures with adjacent hematoma and evidence of active bleeding into the space of Retzius. 2. Intramuscular hematomas involving the right obturator externus and internus without evidence of active extravasation. 3. 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 EXAM: CT LUMBAR SPINE WITHOUT IV CONTRAST [...] Right renal cyst. Aortoiliac atherosclerosis. Colonic diverticulosis. IMPRESSION: 1. No acute fracture or traumatic malalignment of the lumbar spine. 2. Lumbar spondylosis, as described. ASSESSMENT / PLAN Ms. Leon is hospitalized on [facility] Medicine 1 ([facility]) for evaluation and management of right pelvic fracture, in setting of miscalculation of steps at home and missing a couple of steps. Fracture complicated by hematoma, for which patient has been sent to IR for embolization. She has been evaluated by orthopedic surgery, no operative management for fracture and she can bear weight as tolerated. TCGS also evaluated patient in ED, she will have tertiary exam completed by their team once on our service. For now, we will work to aggressively rehabilitate patient as she was very active at baseline and I have hopes she can return to this baseline. We will facilitate this with pain management as needed. Plan to check hemoglobin serially given hematoma and monitor right extremity. 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 - 03/03/2024 8:01 AM CDT PATIENT DISPOSITION Return to inpatient bed. POST-PROCEDURE DIAGNOSIS Pelvic fracture w/active arterial extravasation PROCEDURE PERFORMED AND DESCRIPTION Active arterial extravasation from the L replaced obturator, R obturator and R medial circumflex femoral arteries treated with gelfoam embolization R groin access - AngioSeal closure. Strict bedrest x 2 hrs. PROCEDURE DETAILS See Radiology Report SPECIMENS REMOVED None FINDINGS See report PRIMARY PROCEDURALIST Tash ASSISTANTS none COMPLICATIONS None. DRAINS None. IMPLANTS None. ANESTHESIA Moderate Sedation. FLUIDS none ESTIMATED BLOOD LOSS <5ml CURRENT MEDICATIONS No Medication Changes FOLLOW-UP LETTER None. MAY RETURN TO WORK Not applicable PATIENT INSTRUCTIONS No return appointment documented in this encounter Consult Notes * Wayne Samayoa M.D. - 03/06/2024 12:21 AM CDT REASON FOR CONSULT Code blue Emergency response to patient with syncope. HISTORY OF PRESENT ILLNESS Ms. Kathryn Leon is an 89 y.o. female admitted to the trauma service in the setting of a mechanical fall. This evening the patient was undergoing an enema when she became unresponsive for a period of 1-2 minutes. The nursing staff move the patient to the bed and activated the code blue system. At the time of our arrival, patient was lying in the bed, awake, and able to converse with us. She had no preceding symptoms and had no complaints other than pelvic pain. VITAL SIGNS Please review the Code Narrator for details of the resuscitation. PHYSICAL EXAMINATION General: Alert, oriented Skin: Pallor Eyes: Right pupil abnormality chronic for patient, left reactive ENT: Hearing grossly intact. Nares patent. Septum midline. No oral or pharyngeal erythema or lesions noted. Lungs: Normal rate and effort. Clear to auscultation. Heart: Regular rate and rhythm. No murmurs appreciated. No extremity edema. Abdomen: Soft, non-tender to palpation Joints: Clubbing absent Neuro: Alert and oriented. Moves all extremities. Bilateral strength equal in the proximal and distal extremities. Mental: Mood and affect congruent. DIAGNOSTICS I have reviewed all relevant laboratory, imaging, and other diagnostic data available during this resuscitation. SUMMARY OF EVENTS: Ms. Kathryn Leon is an 89 y.o. female admitted to the trauma service in the setting of a mechanical fall. Code blue activated for syncope, converted to CORRECTIONAL TREATMENT SPECIALIST. Etiology of patient's syncope most consistent with vasovagal event. Hemodynamically stable and returned to baseline mentation shortly after the episode. Blood glucose elevated to 143. CBC and BMP to be acquired and followed by the primary team. EKG was performed and compared to prior and was largely similar with J-point elevation and without any acute changes. The primary team will continue to monitor for any other changes to mentation, altered hemodynamics. The code was supervised by Dr. Aditya Grimes (data security consultant physician). Critical care time 30 minutes. This is time spent at this critically ill patient's bedside activelyinvolved in patient care as well as the coordination of care and discussions with the patient's family. This does not include any procedural time which has been billed separately. * Cristopher Bowers M.T.S. - 03/04/2024 3:05 PM CDTAssociated Order(s): IP CONSULT TO RADIO SURVEY WORKER BLOOD BANK SPECIALIST [facility] Spiritual Care Consult Note Patient: Kathryn Leon Age:89 y.o. Location: [id number] Reason(s) for encounter: Spiritual Care contact to introduce spiritual care service and assess for potential spiritual care needs. Responded to Spiritual Care Consult. Spiritual Care contact for ongoing spiritual care. Spiritual Care contact per Kathryn's request. Spiritual Care contact for uatsdin rites/sacramental encounter. Summary: I was able to meet with Kathryn Leon who was in bed, alert and able to engage. Some family members were present at her bedside. Kathryn Lu shared about her fall. She noted that she was in good spirit and hopes for recovery as she does not require any surgery. She requested for Holy Communion and anointing of the sick. The two sacraments were administered. Sacraments administered: The Sacrament of Communion was administered with blessing and prayer. The Sacrament of Anointing was administered with prayer and blessing Spiritual Assessment Confucianism Identification / Spiritual Practices: Kathryn Lu is a Yazidism Coping and support: Family was present and supportive of her. Spiritual well-being, hopes and resources: Received anointing and Communion. Spiritual Needs and/or Concerns: No new spiritual needs identified at the time Spiritual Care interventions: Introduced the role as member of the interdisciplinary care team and assessed spiritual care needs/concerns of patient and/or family Therapeutic and supportive listening was provided with the aim of allowing patient/family expression of emotions, hopes and worries regarding current medical condition and life stage. Facilitated uatsdin/spiritual practices (prayer, blessing, sacred texts, uatsdin item) with theaim to reinforce patient's spiritual wellness and connection with source of sacredness. Spiritual Care outcomes: Patient/family became familiar with the role of spiritual care provider and identified spiritual care needs. Patient/family achieved a sense of spiritual peace. Patient/family expressed feeling comforted by prayer Patient/family expressed peace, comfort through meeting of ritual/sacramental needs. Patient/family was appreciative of spiritual care support. Spiritual Care Plan / Recommendations: Will remain available for spiritual care as needed or requested. Chaplains can be contacted by [employer] [phone] ([place]) or [phone] (Spiritism). * Brayan Moffett L.G.S.W., M.S.W. - 03/04/2024 11:30 AM CDTAssociated Order(s): IP CONSULT TO CARE MANAGEMENT Psychosocial Assessment SUBJECTIVE DEMOGRAPHIC INFORMATION Referral Source: Nursing Referral Reason: Early Screen Discharge Person(s) present during interview: Patient Previous Psychosocial Assessment: Yes, Date: 05/13/2019, completed by Tawny Rogers LSW. Primary care clinic and provider: [facility] / Harman Aldrich CNP They were advised of the various topics that will be assessed during this evaluation. They consented to proceed. The information provided in the assessment is based on review of the medical record aswell as the interview. They were advised that the content of this interview will be shared with the health care team. It was discussed that staff are mandated reporters and they reported understanding. HISTORY OF PRESENT ILLNESS Patient said she mis-counted steps and was distracted when she fell (had been trying to clean up before visitors were to arrive). SOCIAL HISTORY Family / Household: Patient said she lives alone (her of Covid in September of 2023). She added that she has 3 sons, 7 grandchildren, and 4 great-grandchildren. Spirituality / Catholic / Culture: Sikh, she shared (Spiritual Care consult subsequently placed, per her request for communion). History: Patient denied; however, she noted that her served. Employment: Retired. 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 Psychosocial Risk Factors impacting the patient: none Abuse, Neglect, Maltreatment, Trauma: Current: Patient denied. Historical: Patient denied. ENVIRONMENTAL SUPPORTS Current Living Situation: Patient reported she lives in a rambler-style home with a basement (13 steps to basement). There are 2 steps to enter the home (1 + 1), she indicated. Anticipated modifications to the patient's home environment: TBD. Patient said she has sons who canhelp make modifications if necessary. FUNCTIONAL STATUS (ADL's and IADL's) Dressing: independent Feeding: independent Bathing: independent Grooming: independent Toileting: independent Transfer to/from Bed, Chair, Etc.: independent Mobility: independent Meal Prep: independent Medication Setup/Administration: independent Telephone Use: independent Housekeeping: can accomplish but hires cleaning person Shopping: independent Managing Finances: independent It is anticipated that the patient will need assistance with activities as recommended by interdisciplinary team after assessments (e.g., PT/OT). ASSISTIVE DEVICES Patient has the following equipment: walker, high toilet, cell phone, and eyeglasses Patient anticipates potentially needing the following additional equipment: TBD, pending assessments by interdisciplinary team (e.g., PT/OT). 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 She expressed that she has helpful family members and friends. FINANCES/INSURANCE Primary insurance: MEDICARE A AND B Secondary insurance: FOR LIFE Financial concerns: Patient denied Legal concerns: Patient denied. SDOH: Transportation: Patient denied concerns. Housing: Patient denied concerns. Food: Patient denied concerns. Utilities: Patient denied concerns. IPV: Social Work did not ask. (Patient recently , she indicated.) ADVANCE DIRECTIVES Advance Directive: Patient has advance directive, copy not in chart OBJECTIVE Mrs. Kathryn Leon is an 89-year-old female patient hospitalized on FR 05C, Room 139 (for History ofFalling). At time of visit, patient was seated in her hospital chair. Suicide Risk and Safety Risk Assessment: Suicidal: Patient denied. Homicidal: Patient denied. Current Stressors Patient denied experience of stress. Coping Skills/Strengths Patient said she vents to a friend when she feels stressed. In terms of strengths, patient said she is good at organizing people and things. ASSESSMENT / PLAN DISCUSSION Social Work engaged in record review and communicated with interdisciplinary team prior to meeting with patient to introduce self and role, offer support, engage in psychosocial assessment, and discuss discharge plans. Patient was agreeable to visit. She shared freely information about her life, including her family and her home. Moreover, she indicated that her mood is generally normal/good, but she does feel sad at times since sudden of her spouse in September (due to Covid). When asked, she said she feels well supported as she grieves. Her appetite, she said, is better than it should be. Her sleep, she reported, varies in terms of quality (hard time sleeping some nights, good sleep other nights). Next, patient denied tobacco, drug, or alcohol use. What's more, patient denied personal or family history of mental illness. In terms of discharge plans, patient said she prefers to go to [facility] (referral subsequently sent--see PLAN section below), for it is close to her home and not far from her children's places of residence. Patient reported no needs or questions at conversation's end and thanked Social Work for visiting. Social Work wished her a good rest of the day. IMPRESSION Patient, dressed in hospital clothes, appeared as stated age,?with adequate grooming and hygiene. Patient?was cooperative, engaging, and relaxed?during the interview with appropriate?eye contact and normal?psychomotor behavior. ?Speech was fluent and normal for volume, rate and tone. ?Memory and concentration were?intact. Sensorium was alert?and oriented to person, place, and time. Mood was normal, not directly given?with reactive, anxious, and indifferent?affect; affect was mood-congruent and within a normal?range. Thought process was linear and brief. Thought content contained no?bizarre delusions, no perceptual abnormalities, and no noticeable response to internal stimuli.?Insight and ofelia gement were intact. INTERVENTIONS -Education regarding role of social services coordinator in a hospital setting -Psychosocial Assessment -Empathetic listening and validation in a strengths-based, solutions-focused, trauma-informed approach -Patient respectfully declined [facility] Trauma Folder. -Patient accepted Resources for Older People & Their Families booklet (which includes Senior Linkage Line info). -Patient was informed about Patient Library, Patient Education channels, Art at the Bedside kits, and Spiritual Care. She requested a visit (communion) from Spiritual Care team. PLAN -Patient expressed interest in having a referral sent to [facility] facility (subsequently done--see below). -Transportation needs will be addressed closer to time of discharge. -Social Work will assist with transition planning and will offer supportive visits as necessary during remainder of patient's hospital stay. Anticipated barriers to the transition of care/plan: none Destination - Admitted Since 03/02/2024 Service Provider Request Status Selected Services Address Phone Fax Patient Preferred [facility] Pending - Request Sent N/A [id number] [address] [phone] -- --A list of long-term facility swing bed/MPAC options (that they geographically reside or requested) has been provided to and reviewed with patient. Disclaimers: Financial disclosure provided informing patient of our ownership and financial relationship of the [facility] beds, home health, and hospice agencies. Reviewed Medicare coverage and provided a list of options. Social Work also explained hospital's Broad Referral policy. Patient expressed understanding. Addendum (2:20): Later in the day, patient asked to have a 2nd referral sent: Phone Fax Patient Preferred [facility] Pending - Request Sent N/A [phone] [facility] [id number] -- Kwesi Arnett, M.S.W. 03/04/24 * Doris Anderson O.T., O.T.DDann - 03/04/2024 9:50 AM CDT Occupational Therapy Acute Hospital Inpatient Evaluation/Treatment SUBJECTIVE Patient's Name: Kathryn Leon Referring/Attending Provider: Sree Zaidi M.D. Reason for Referral: Occupational Therapy Evaluation and Treatment PERTINENT MEDICAL / SURGICAL HISTORY: Kathryn Leon has no past medical history on file. Kathryn Leon has a past surgical history that includes Reduction mammoplasty (N/A, 02/26/1982); Internal hemorrhoidectomy (N/A, 02/26/1959); Extracapsular cataract extraction and insertion of intraocular lens (N/A, 02/26/2007); Hysterectomy (N/A, 11/04/1966); Repair of cystocele (N/A, 02/12); other converted shx (see comment) (N/A, 02/02/2007); other converted shx (see comment) (N/A, 02/15/2010); Hysterectomy (11/04/1966); Breast biopsy (Right); Reduction mammaplasty (Bilateral, 02/26/1982); and Reduction mammaplasty (Bilateral, unknown date). History of Present Illness: Kathryn Leon is a 89 y.o. female who was admitted to [facility] in [place] on 03/02/2024 for Fracture Pelvis Other Parts Closed Initial (HCC) [S32.89XA]. Relevant Medical History: Per EMR, Ms. Leon is a 89 y.o. female who and acute comminuted displaced right superior pubic rami fracture right inferior pubic rami fracture and intramuscular hematomadue to ground level fall. Precautions Weight Bearing Status: WBAT RLE Other Precautions: Fall precautions Falls screen: Fall in the last 12 months: Yes Did you have an injury with the fall: Yes Pain Assessment: Pain Ratin/10 on a 0-10 point scale, Location: lower extremities following mobility Patient states level of pain is acceptable or tolerable to participate in therapy Pain intervention(s) used to address pain greater than 4: repositioned Subjective Comments: Agreeable to therapy session with encouragement. Team Communication: The patient's status was discussed and coordination of care occurred with RNCYNTHIA Home Living and Equipment: Lives with: Alone Receives help from: Family Type of Home: House Home Layout: Able to live on main level with bedroom/bathroom Home Access: 1 platform step (able to hold onto a post for stability) + 1 platform step (no railings or hand holds) to enter the house. Once inside the house, has 2 additional platform steps with railings to access the main level. Bathroom Accessibility: Accessible via walker Shower: Walk-in Shower Enclosure Type: Sliding glass door Bathroom Equipment: shower stool Toilet: Standard Toilet Level: Main Floor Assistive Device Owned: Front wheeled walker Adaptive Equipment Owned: Flumer Other DME Owned: None Prior Level of Function and Mobility: Basic Activities of Daily Living: Independent Instrumental Activities of Daily Living: Has hired assistance with cleaning every two weeks. Prepares her own meals and manages her own medications using a pill box. Functional Mobility: Independent Driving: No Due to glaucoma Occupational Role: Retired Leisure Interests: Quilting Patient/Caregiver Goals: Decrease pain OBJECTIVE Vital Signs: Vitals stable per chart review. Evaluation Assessment: BALANCE: Static Sitting: Good (Maintains balance without support) Dynamic Sitting: Good (Maintains balance without support) Static Standing: Fair (Maintains balance with handheld assist) Dynamic Standing: Fair (Maintains balance with handheld assist) ACTIVITY TOLERANCE: Endurance: Tolerates less than 10 minutes of activity HEARING/VISION: Hearing: Hearing Intact Baseline Vision/Correction: Low vision (uncorrectable) Vision Impairments: Impaired central vision Outcome Measures: AM-[facility] Inpatient Short Form: Putting on and taking off regular lower body clothing?: Total Putting on and taking off regular upper body clothing?: A Little Taking care of personal grooming such as brushing teeth?: A Little Bathing (including washing, rinsing, drying)?: A lot Toileting, which includes using toilet, bedpan, or urinal?: Total Eating meals?: None Daily Activities Raw Score (max 24): 14 Daily Activities Standardized Score: 33.39 Interpretation: Based on scoring guidelines using the raw score value: Those going to home had an average score at or above 18 Those going to facility had an average score at or below 17 Clinicians answer the [facility] Inpatient Short Form based on observed patient activity and/or clinical judgment (ie. patient can be scored without physically performing each activity) Cognition: Will further assess and monitor as warranted Therapeutic Interventions: ACTIVITIES OF DAILY LIVING: LOWER BODY DRESSING - Assist Level: Maximal Assist - Patient Location: Supine - LB Dressing Item: socks - Therapist Delivery: assessed, instructed, assisted, facilitated - Assist/Cues: verbal, tactile, and visual for technique, sequencing, step by step instructions BED MOBILITY: SUPINE to SIT - Assist Level: Moderate Assist, x 1, + assist for safety - Device: use of bed rail, head of bed elevated - Therapist Delivery: assessed, instructed, assisted, facilitated - Assist/Cues: verbal, tactile, and visual for technique, sequencing, proper hand placement, trunk support, lower extremity support, step by step instructions, increased time, breathing technique , safety SCOOTING - Assist Level: Contact Guard Assist - Device: head of bed elevated - Therapist Delivery: assessed, instructed, facilitated - Assist/Cues: verbal for sequencing, step by step instructions FUNCTIONAL TRANSFERS: SIT to STAND - Assist Level: Minimal Assist, x 2 - Equipment: front wheeled walker and gait belt - Surface: Bed - Therapist Delivery: assessed, instructed, assisted, facilitated - Assist/Cues: verbal, tactile, and visual for technique, sequencing, proper hand placement, increased time, balance, upright posture, step by step instructions, breathing technique STAND to SIT - Assist Level: Minimal Assist, x 1, + assist for safety - Equipment: front wheeled walker and gait belt - Surface: Chair - Therapist Delivery: assessed, instructed, assisted, facilitated - Assist/Cues: verbal, tactile, and visual for technique, sequencing, eccentric control, increased time, balance, step by step instructions, safety TRANSFER - Assist Level: Minimal Assist - Equipment: front wheeled walker and gait belt - Approach: To, Stand pivot - Surface: Chair - Therapist Delivery: assessed, instructed, educated, assisted, facilitated - Assist/Cues: verbal, tactile, and visual for technique, sequencing, increased time, balance, stepby step instructions, breathing technique , initiation, safety Education/Training Provided: Provided education on role of occupational therapy in the acute setting. Collaborated with patient and/or family on goals and plan of care. Functional Transfers: - Provided instruction and cues during functional sit to/from stand transfers, including body alignment to surface, appropriate hand placement, and optimal placement of extremities to optimize safetyand technique. Bed Mobility: - Patient instructed on compensatory strategies to improve transfer in/out of bed. Recommendations provided with adaptations for correct sequencing, technique, and modification tools as needed including leg edi consultant and/or bed adjustments. Patient was left in bedside chair at end of session with call light in reach, all needs met and questions answered. Assessment Discharge Therapy Needs - OT: Ongoing skilled occupational therapy If skilled therapy is recommended, Skilled therapy can include occupational therapy provided in home health, outpatient or post-acute facility. The location of these services is determined by patient's care team in partnership with patient/family. Barriers to Discharge Home: Current functional status, Fall risk, Inaccessible home environment, Limited caregiver availability Level of Care Needed - OT: Assistance with toileting, Assistance with meal preparation, Assistance with toilet/shower transfers, Assistance with showering/bathing, Assistance with dressing, Assistance with transportation, Assistance with housekeeping, Assistance with shopping, Physical assistance ne eded Clinical Impression: Currently, patient presents with impairments including pain, debility, impaired balance, decreased activity tolerance, impaired range of motion, and safety concerns resulting in functional deficits including impaired functional mobility and decreased independence with self care tasks. At baseline, patient lives alone. She reports being independent in mobility, ADLs, and has support for various IADLs. During this session, patient completed bed mobility moderate assistance, and functional transfers/mobility with min assistance x 1-2. Total assistance required for lower body dressing tasks. Increased time and effort to complete tasks on this date due to pain and fatigue. The patient will benefit from ongoing occupational therapy services while hospitalized in order to improve engagement and independence in meaningful occupations. Plan OT Plan Comments: Next session: lower body dressing with AE, progress functional transfers/mobility(FWW vs Delmy Stedy), toileting, seated vs standing grooming Functional Goals: OT Goal #1: Patient will complete toileting tasks and transfer with modified independence in order to return to prior level of function upon discharge. OT Goal #2: Patient will verbalize and demonstrate understanding of use of DME in order to promote safety and independence upon discharge. OT Goal #3: Patient will complete total body dressing with modified independence in order to returnto prior level of function upon discharge. Progress: Slow progress, limited activity tolerance Rehab potential: Ms. Leon has good potential to achieve established occupational therapy goals within the time frame outlined below. OT Frequency: OT Amount: 1 visit per day OT Frequency: 5 times per week Requires Inpatient OT Follow-Up: Yes OT - Next Inpatient Appointment: 03/07/24 Plan: Plan of care initiated Treatment interventions may include: Treatment Interventions: Therapeutic exercise, Therapeutic functional activity, Self-care/home management, Cognitive skills training Occupational Therapy Attestation Statement: Patient agrees with the plan of care and goals. Billing: Tiered OT Evaluation Codes: Comorbid Conditions: Other (Comment) (see EMR) Personal Factors: Age, Needs assistive device, Living situation, Balance impairment Occupational Profile and History review: Expanded Performance Deficits: 3 - 5 performance deficits Evaluation Complexity: Moderate Time Spent with Patient Evaluations OT Eval - Mod Complexity: 10 min Therapeutic Interventions Home Management Training (min): 16 min Time Tracking Total Timed Units (min): 16 min Total Treatment Time (min): 26 min Doris Anderson O.T., O.T.DDann * Danielito Lira P.T., D.P.T. - 03/03/2024 4:47 PM CDT Physical Therapy Inpatient Evaluation/Treatment SUBJECTIVE Patient's Name: Kathryn Leon Referring/Attending Provider: Sree Zaidi M.D. Reason for Referral: Physical Therapy Evaluate and Treat Pertinent Medical / Surgical History: Kathryn Leon has no past medical history on file. Kathryn Leon has a past surgical history that includes Reduction mammoplasty (N/A, 02/26/1982); Internal hemorrhoidectomy (N/A, 02/26/1959); Extracapsular cataract extraction and insertion of intraocular lens (N/A, 02/26/2007); Hysterectomy (N/A, 11/04/1966); Repair of cystocele (N/A, 02/12); other converted shx (see comment) (N/A, 02/02/2007); other converted shx (see comment) (N/A, 02/15/2010); Hysterectomy (11/04/1966); Breast biopsy (Right); Reduction mammaplasty (Bilateral, 02/26/1982); and Reduction mammaplasty (Bilateral, unknown date). History of Present Illness: Kathryn Leon is a 89 y.o. female who was admitted to [facility] in [place] on 03/02/2024 for Fracture Pelvis Other Parts Closed Initial (HCC) [S32.89XA]. Precautions Weight Bearing Status: WBAT RLE Other Precautions: Fall precautions RST PT/OT Falls screen: Fall in the last 12 months: Yes - reason for admission. Denies any other falls in the past year. Did you have an injury with the fall: Yes - current injuries Home Living and Equipment: Lives with: Alone Type of Home: House Home Layout: Able to live on main level with bedroom/bathroom Home Access: 1 platform step (able to hold onto a post for stability) + 1 platform step (no railings or hand holds) to enter the house. Once inside the house, has 2 additional platform steps with railings to access the main level. Assistive Device Owned: Front wheeled walker Other DME Owned: Adjustable bed without rails Prior Level of Function and Mobility: Functional Mobility: Independent without any gait devices Basic Activities of Daily Living: Independent Instrumental Activities of Daily Living: Has hired assistance with cleaning every two weeks. Prepares her own meals and manages her own medications using a pill box. Driving: Does not drive due to glaucoma Leisure Interests: Enjoys volunteering at [employer], [employer] Pain Assessment: Patient rated pain 0/10 at rest in bed, 10/10 with weight bearing when transferring to transport cart. RN did provide IV fentanyl prior to mobility and patient stated that this helped with her pain but made her feel dizzy/light headed. Patient/Caregiver Goals: Return to home and Return to prior level of function Subjective Comments: Patient agreed to session. OBJECTIVE Vital Signs: Post Activity: Pulse Rate: 72 bpm Blood Pressure: 98/71 (74) mmHg O2: 98% Room air Evaluation Assessments: Strength: Generalized weakness right lower extremity > left Range of Motion: Right lower extremity grossly impaired secondary to pain Balance: Static Sitting: Good (Maintains balance without support) Dynamic Sitting: Fair (Maintains balance with handheld assist) Static Standing: Fair (Maintains balance with handheld assist) Dynamic Standing: Poor (Requires assist to maintain balance) Outcome Measures: [facility] Inpatient Short Form: [facility] Basic Mobility (V.2) How much help from another person do you currently need???If the patient hasn't done an activity recently, how much help from another person do you think he/she would needif he/she tried? 1. Turning from your back to your side while in a flat bed without using bedrails?: A Lot 2. Moving from lying on your back to sitting on the side of a flat bed without using bedrails?: A Lot 3. Moving to and from a bed to a chair (including a wheelchair)?: A Lot 4. Standing up from a chair using your arms (e.g., wheelchair, or bedside chair)?: A Little 5. To walk in hospital room?: A Lot 6. Climbing 3-5 steps with a railing?: Total [facility] Basic Mobility (V.2) Raw Score: 12 [facility] Basic Mobility (V.2) Standardized Score: 32.23 Interpretation: Based on scoring guidelines using the raw score value: Those going to home had an average score at or above 18 Those going to facility had an average score at or below 17 Clinicians answer the [facility] Inpatient Short Form based on observed patient activity and/or clinical judgment (ie. patient can be scored without physically performing each activity) Therapeutic Interventions: SUPINE TO SIT: Assistance Level: Moderate Assistance of 1 Device: head of bed elevated and bedrail Assistance/Cueing: verbal and tactile for Lower extremity movement/management, Sequencing, and Technique SIT TO SUPINE: Assistance Level: Maximal Assistance of 2 Device: Head of transport cart elevated Comments: Patient presyncopal with decreasing responsiveness when sitting at edge of transport cart. PT assisting at posterior trunk, second person assisting both lower extremities onto transport to quickly transition to supine position. Alertness improved and patient reported gradual improvement in dizziness/light headedness once lying down. SIT TO STAND: Assistance Level: Minimal Assistance of 1 Device: gait belt and front wheeled walker Surface: Bed Assistance/Cueing: verbal for Anterior weight shifting, Sequencing, Technique, and Upper extremity placement STAND TO SIT: Assistance Level: Moderate Assistance of 1 Device: gait belt and front wheeled walker Surface: Transport cart Assistance/Cueing: verbal for Alignment with seated surface, Eccentric control, and Upper extremityplacement PIVOT TRANSFERS: Surface:Bed to Chair Assistance Level: Moderate Assistance of 1 Device: gait belt and front wheeled walker Approach: stand pivot Assistance/Cueing: verbal for sequencing with emphasis on weight bearing through upper extremities into walker during single limb support on the right to help with pain control Comments: Patient having difficulty advancing the right lower extremity, needing to gradually shuffled the foot forward along the floor to take small steps. She endorsed worsening dizziness/lightheadedness during the transfer. The patient's status was discussed and the following coordination of care occurred with the RN and Primary Service Family/Caregiver Present: [id number] Patient was left on transport cart at end of session going to x-ray. All needs met and questions answered. Assessment Discharge Therapy Needs - PT: Ongoing skilled physical therapy If skilled therapy is recommended, skilled therapy can include physical therapy provided by home health, outpatient clinic, or a post-acute facility. The location of these services is determined by the patient's care team in partnership with patient/family. Level of Care Needed - PT: Assistance with bed mobility, Assistance with transfers, Assistance withwalking and moving around the home, Assistance with stairs, Physical assistance needed Equipment Recommended - PT: Front-wheeled walker Barriers to Discharge Home: Current functional status, Fall risk, Inaccessible home environment, Limited caregiver availability Clinical Impression: Patient is an 89 year old female admitted with right superior and inferior pubic rami fractures renee right sided sacral ala fracture following a fall down a couple of stairs. These injuries are being managed non-operatively and she is permitted to weight bear as tolerated using a gait aid for assistance per orthopedic surgery. During my assessment this afternoon she generally required minimal to moderate assistance to sit upat the edge of the bed, stand, and take several pivot steps to transfer to the transport cart whichhad arrived to take her for x-ray. She did report high levels of pain in the right pelvis during the transfer but was more limited due to dizziness/light headedness. She became presyncopal following the transfer and needed assistance to quickly transition to a supine position, after which her alertness and symptoms improved. Patient presents well below her functional baseline and would benefit from continued physical therapy to further optimize her safety and independence with mobility. Plan PT Plan Comments: Progress bed mobility, transfer training and initiate gait training as appropriate. Coordinate with nursing to ensure pain medication on board prior to session. Functional Goals: PT Inpatient Goals PT Goal #1: Patient will complete supine to/from sitting transitions with modified independence while maintaining activity precautions to demonstrate return to functional baseline PT Goal #2: Patient will complete sit to/from stand transitions with modified independence using least restrictive assistive device while maintaining activity precautions to demonstrate progression toward functional baseline PT Goal #3: Patient will ambulate 35 m with modified independence using least restrictive assistivedevice while maintaining activity precautions to demonstrate progression toward functional baselineand enable safe household distance ambulation PT Goal #4: Patient will negotiate 4 stairs with modified independence using least restrictive assistive device while maintaining activity precautions to enable safe entrance into the home Kathryn Leon has Good rehab potential to meet the expected outcomes in a reasonable period of time. Treatment Plan: Plan: Plan of care initiated PT Frequency: 5 times per week PT Inpatient Duration : Until goals are met or hospital discharge Requires Inpatient Follow-Up: Yes PT - Next Inpatient Appointment: 03/04/24 Patient agrees with the plan of care and goals. Treatment interventions may include: Treatment/Interventions: Therapeutic exercise, Therapeutic functional activity, Neuromuscular re-education, Gait training, Self-care/home management Tiered PT Evaluation Codes: Comorbid Conditions: (Osteoporosis, peripheral neuropathy) Personal Factors: Age, Needs assistive device Examination elements: 3 Clinical Presentation: Evolving Clinical Decision Making: Moderate complexity clinical decision making Billing: Time Spent with Patient Evaluations PT Eval - Mod Complexity: 15 min Therapeutic Interventions Therapeutic Activity (min): 13 min Time Tracking Total Timed Units (min): 13 min Total Treatment Time (min): 28 min Danielito Lira P.T., D.P.T. * Karla Kim M.D. - 03/03/2024 2:52 PM CDT I have independently seen and examined Mrs. Kathryn Leon. I have discussed the history and examination with Katherin Dale PA-C , independently reviewed the salient features, and agree with the findings and plan as documented in Ms. Dale's note, with the following comments: Briefly, Kathryn Leon is a 89 y.o. 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 She was admitted following a fall as she was stepping backward down the stairs (as she had been advised by a medical provider previously) while holding a crock pot and misjudged the length of the stairwell and missed thelast two steps. Injuries sustained include non-operative pelvic fractures, intramuscular hematoma with active extravasation now s/p IR embolization. RECOMMENDATIONS: Given that her renal function is worse than baseline (current creatinine 1.3 vs baseline 0.9), I would favor discontinuing systemic NSAID until trajectory is clear or renal function improves; topicalNSAIDs are ok though (only 1/16th of the dose is absorbed) Please repeat BMP Agree with holding losartan and HCTZ for now Please obtain a set of orthostatic vitals (new dizziness on standing) Regarding neuropathy, B12 was last checked in 2013 and she is on an oral supplement; as absorption can be variable, consider rechecking B12 Recommend adjusting home med list to remove meclizine (risk > benefit, even though rarely used) Agree with multimodal analgesia (APAP, topicals, ice, low dose oxycodone for breakthrough) Recommend getting up to chair as much as possible during daytime hours; if pain is limiting her comfort in the chair, consider use of a roho cushion We will return tomorrow to monitor cognitive function and assess mobility Please refer to Ms. Dale's note dated today for additional details about our team's plan of care. * Katherin Dale P.A.-C. - 03/03/2024 1:07 PM CDTAssociated Order(s): IP CONSULT TO HOSPITAL INTERNAL MEDICINE Geriatrics Consult SUBJECTIVE Reason for Consult: geriatric trauma assessment Primary Team: AISHA BETANCOURT Trauma Person-Centered History: Ms. Kathryn Leon is a 89 y.o. [place]. She is a mother of 3, grandmother of 7, great-grandmother to 4. Her of 67 years in September and she has struggled with the loss of her life partner of so many years. General (e.g. 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 Leon presented to the ED after a fall down 2 steps in her home landing on her right hip. 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 She was at home walking down the stairs backwards (as she always does after back surgery) while holding a crock pot. She thought she was at the bottom of the stairs but was 2 stairs up, turned to theright and fell down the remaining 2 stairs onto the floor below. She did not hit her head or lose consciousness, no dizziness, lightheadedness or other concerns prior to the fall. She asked Geena to call her son who is an EMT who arrived and called EMS. Fall resulted in superior and inferior right-sided pubic rami fractures as well as active arterial extravasation adjacent to the fractures and hematoma without active extravasation inside it. Regarding the fracture, orthopedics recommended nonoperative management and weight-bearing as tolerated. She underwent Gel-Foam embolization of the femoral artery medial circumflex level with IR. She was init ially admitted to the Medicine 1 service, but was transferred to the [facility] Service for management given trauma requiring IR intervention. 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 Upon my evaluation, she easily awakens and states that she was feeling well with pain well-controlled. She was hungry and anticipate eating some toast for a late lunch. Advanced Care Planning History: Advance Directive: The patient does not have an advance directive on file Current Code Status: Tells me she would like to be full code Prior Advanced Care Planning (ACP) note(s): No ACP notes are documented in the electronic health record. Surrogate Decision Maker(s) if patient is or becomes incapacitated: her three sons, but son Pardeep can be primary contact as he is local Current Outpatient Medications on File Prior to Encounter: calcium carbonate-vitamin D3 1,500 mg (600 mg calcium)-10 mcg (400 Unit) per tablet, Take 1 tablet by mouth 2 (two) times a day with meals., 03/02/2024 chlorthalidone (HYGROTON) 25 mg tablet, Take 1 tablet (25 mg total) by mouth daily., 03/02/2024 cycloSPORINE (RESTASIS) 0.05 % ophthalmic emulsion, Administer 1 drop into both eyes 2 (two) times a day., 03/03/2024 ferrous sulfate 325 mg (65 mg iron) tablet, Take 1 tablet by mouth daily., 03/02/2024 fexofenadine-pseudoephedrine (ROCHELLE-D) 60-120 mg per 12 hr tablet, Take 1 tablet by mouth 2 (two)times a day., 03/02/2024 fluticasone propionate (FLONASE) 50 mcg/actuation nasal spray, Administer 2 sprays into each nostril daily as needed for rhinitis or allergies. (Patient taking differently: Administer 2 sprays into each nostril daily.), 03/02/2024 gabapentin (Neurontin) 100 mg capsule, , Past Month hydroCHLOROthiazide (HYDRODIURIL) 12.5 mg tablet, Take 1 tablet (12.5 mg total) by mouth every morning., 03/02/2024 losartan (COZAAR) 25 mg tablet, , 03/02/2024 MULTIVITAMIN ORAL, Take 1 tablet by mouth daily., 03/02/2024 omeprazole (PriLOSEC) [address] capsule, Take 1 capsule by mouth daily., 03/02/2024 alendronate (FOSAMAX) 70 mg tablet, TAKE 1 TABLET EVERY 7 DAYS (WEEKLY) ON AN EMPTY STOMACH, REMAINUPRIGHT FOR AT LEAST 30 MINUTES alendronate (FOSAMAX) 70 mg tablet, TAKE 1 TABLET EVERY 7 DAYS (WEEKLY) ON AN EMPTY STOMACH REMAIN UPRIGHT FOR AT LEAST 30 MIN[address] aspirin [address] tablet, Take 81 mg by mouth daily., More than a month colchicine (COLCRYS) 0.6 mg tablet, CYANOCOBALAMIN, VITAMIN B-12, ORAL, Take 1,000 mcg by mouth daily. dorzolamide-timoloL (COSOPT) 22.3-6.8 mg/mL ophthalmic solution, Administer 1 drop into the right eye daily., More than a month fexofenadine-pseudoephedrine (ROCHELLE-D) 60-120 mg per 12 hr tablet, Take 1 tablet by mouth 2 (two)times a day. fexofenadine-pseudoephedrine (ROCHELLE-D) 60-120 mg per 12 hr tablet, Take 1 tablet by mouth 2 (two)times a day. fexofenadine-pseudoephedrine (ROCHELLE-D) 60-120 mg per 12 hr tablet, Take 1 tablet by mouth 2 (two)times a day. fexofenadine-pseudoephedrine (ROCHELLE-D) 60-120 mg per 12 hr tablet, Take 1 tablet by mouth 2 (two)times a day. fluorouraciL (EFUDEX) 5 % cream, Apply topically twice daily for 46 weeks meclizine (ANTIVERT) 25 mg tablet, Take 25 mg by mouth as needed. nirmatrelvir-ritonavir (Paxlovid) 150-100 mg dose pack, Take 150 mg nirmatrelvir (one 150 mg tablet) with one 100 mg ritonavir (one 100 mg tablet), with both tablets taken together by mouth twice daily for 5 days Systems Review (Geriatrics): Mobility: Falls in past 12 months: Yes, non before this fall Cognition Patient / family awareness of problems with memory / thinking: No Behavioral symptoms: None Depression screen (PHQ 2): not performed Sensory Impairment Visual Impairment: Yes, right visual loss from glaucoma Hearing Impairment: No Nutrition Poor appetite: No Problems with chewing: No Problems with swallowing: No Unintentional weight loss: No Elimination Bowel: No concerns report Bladder: No concerns reported Factors associated with hospitalization: Sleep: procedure overnight, too soon to tell Tubes/lines: PIV and Rico Current diet order: Adult Diet Regular; Gluten Free VTE prophylaxis: enoxaparin OBJECTIVE Temperature: [36.4 ??C] 36.4 ??C Heart Rate: [71-82] 71 Resp Rate: [8-17] 12 Blood Pressure: (131-165)/(51-73) 165/61 SpO2: [93 %-100 %] 98 % Flow Rate (L/min): [3 L/min] 3 L/min Pulse Rate: [67-88] 73 Wt Readings from Last 6 Encounters: 09/30/22 71.3 kg 02/16/21 71.7 kg 02/04/21 69 kg 01/30/21 71.8 kg 01/29/21 75.6 kg 07/14/19 70.5 kg Physical Exam: General: Alert, interactive, not acutely ill, no apparent distress. Eyes: Pupils equal and round ENT: Hearing grossly intact. Lungs: Normal rate and effort. Clear to auscultation anteriorly Heart: Regular rate and rhythm. No extremity edema. Abdomen: Mildly tender, soft, nondistended Neuro: Cranial nerves II-XII grossly intact. Strength 5/5 in upper extremities. Mental: Mood and affect congruent. Alert and oriented. Attention intact. No evidence of disorganized thinking. RASS 0. b-CAM negative for acute delirium (completes backwards months easily). 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 DIAGNOSTICS I have independently reviewed labs since admission. ASSESSMENT / PLAN [facility]. Leon [facility] for evaluation and management of: Fracture Pelvis Other Parts Closed Initial ([facility]). 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 She is physically active and goes up and down her stairs multiple times per day. No use of any assist devices at baseline. She was admitted after a fall resulting in superior and inferior right-sided pubic rami fractures as well as active arterial extravasation adjacent to the fractures and hematoma without active extravasation inside it. Regarding the fracture, orthopedics recommended nonoperative management and weight-bearing as tolerated. She underwent Gel-Foam embolization of the femoral artery medial circumflex level with IR. She was initially admitted to the Medicine 1 service, but was transferred to the [facility] for management given trauma requiring IR intervention. What Matters Most to Ms. 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 Relationships/supports: son Pardeep, daughter in law Samantha, friends give rides, inside sales executive once every other week Goals: walk normally again, return home Mentation: Baseline cognition: no concerns Delirium screening: CAM negative for acute delirium on exam Decision-making capacity: intact Alternate decision maker are three sons, primary contact would be wesly Roberto who is local Mobility: Baseline Mobility: BMAT Level 4 (Able to stand and walk) Current Activity/Mobility: has not yet been assessed Safe Mobility (Fall Prevention) Plan: I have discussed My Plan for Safe Activity with the patient. Medications/Medical Issues: Medication review: reconciled Holding: Alendronate, calcium vitamin-D, vitamin B12, iron, Rochelle D, Efudex cream, hydrochlorothiazide, losartan Not taking, still on med list: Aspirin, chlorthalidone, Cosopt drops Takes rarely p.r.n.: Colchicine, gabapentin, meclizine Continuing: Restasis drops Relevant acute medical/geriatrics issues: RODOLFO, pubic rami fx, s/p IR embolization Anticipated disposition plan: uncertain, likely [facility] for subacute rehab Regarding the fall, she was at home walking down the stairs backwards (as she always does after remote back surgery) while holding a crock pot. She thought she was at the bottom of the stairs but was2 stairs up, turned to the right and fell down the remaining 2 stairs onto the floor below. She wonders if her right visual loss and vision blocked by the crock pot contributed to fall. She did not hit her head or lose consciousness, no dizziness, lightheadedness or other concerns prior to the fall. She asked Geena to call her son who is an EMT who arrived and called EMS. As outlined above, she is an active 89 year old whose life is full of various activities. Her mind is very sharp at baseline and during my discussion this afternoon, there is no evidence of any changes from her baseline even despite a busy night and anesthesia today. Non-pharmacologic delirium precautions will be recommended. Unclear what her baseline renal function is, last creatinine 0.9 in 2020. She may have a mild prerenal RODOLFO versus her creatinine maybe a baseline of 1.3 given the number of years since last creatinine check. Either way, she was received lots of dye and we will get to continue to monitor. I think a bit of IV fluids may be reasonable as well. Meclizine is not ideal for her to be taking as an older adult for vertigo, she last took this a very long time ago. This should ideally be continued. RECOMMENDATIONS: 1. Given question of RODOLFO versus CKD, recommend repeating renal function panel today. Could also give a bolus of IV fluids. Would prefer not giving ibuprofen at this time. 2. Agree with holding losartan and hydrochlorothiazide for now. (she is not taking chlorthalidone) 3. Recommend sleeping enhancement if okay by primary team 4. There is no active code status currently and she tells me she would like to be a full code givenhow overall healthy she is 5. Agree with multimodal pain control, has not required IV opiates, so fentanyl could be peeled off 6. Mobility has not yet been assessed, she wonders if she will need rehab which may very well be the case. 7. She stopped taking Cosopt drops for unclear reasons, wound be beneficial to f/u with PCP for reassessment of all medications 8. She rarely takes meclizine or gabapentin. May be good to dc meclizine on dismissal give risk especially in elderly patients. The above plan of care was discussed with Dr. Kim, HIM data security consultant. I personally spent a total 80 minutes in counseling and coordination of care as documented above. Thank you for the opportunity to care for this patient. We will continue to follow with you. Pleasepage the Geriatrics Consult Service at [phone]. * See Mcfarland M.D., Ph.D. - 03/03/2024 1:42 AM CDTAssociated Order(s): IP CONSULT TO TRAUMA CRITICAL CARE AND GENERAL SURGERY Trauma Critical Care and General Surgery Consult Note PATIENT ID: Kathryn Leon, 89 y.o. female MR #: [id number] Green level trauma Mechanism Fall on stairs, missed last 2 steps Fell on right hip/right arm HPI Kathryn Leon is a 89 y.o. female who presented to the emergency department via EMS with 7/10 pain in her right groin after falling on her right hip, she missed the last 2 stairs. She was skin laceration on her right elbow. She denies hitting her head or losing consciousness. Past medical history: Osteoporosis on alendronate, migraine, BPPV, GERD, hypertension Past surgical history: None Anticoagulation Status: None Physical Exam General: No distress, conversational, attempting to urinate but having trouble lying on her back HEENT: Head is atraumatic normocephalic. Pupils are equal, round, and reactive to light, Neck: Supple. Trachea midline. No palpable cervical crepitus or underlying hematoma. Collar in place. Chest: Chest wall stable. No apparent tenderness on palpation. No palpable crepitus. Abdomen: Soft, nondistended, nontender on palpation. Pelvis: Stable to rock and compression, pain to palpation right inguinal area Extremities: Subacute skin tear right elbow Spine: Palpation of cervical, thoracic and lumbar spine did not reveal any step- offs, tender to lower back palpation in her hip region LABS Recent Results (from the past 24 hour(s)) CBC with Differential, Blood Collection Time: 03/02/24 11:55 PM Result Value Hemoglobin 11.6 Hematocrit 34.2 (L) Erythrocytes 3.80 (L) MCV 90.0 RBC Distrib Width 12.9 Platelet Count 151 (L) Leukocytes 7.7 Neutrophils 6.21 Lymphocytes 0.91 (L) Monocytes 0.50 Eosinophils 0.07 Basophils <0.03 Basic Metabolic Panel Collection Time: 03/02/24 11:55 PM Result Value Potassium, P 4.6 Sodium, P 135 Chloride, P 98 Bicarbonate, P 26 Anion Gap, P 11 BUN (Blood Urea Nitrogen), P 25 (H) Creatinine 1.31 (H) Estimated GFR (eGFR) 39 (L) Calcium, Total, P 9.8 Glucose, P [address] Pelvis without IV Contrast Result Date: 03/03/2024 Impression: Acute comminuted and displaced right superior pubic ramus fracture with extension through the pubic body. Additional mildly comminuted nondisplaced right inferior pubic ramus fracture. Nofracture involving the femoral head or acetabulum. Asymmetric enlargement and hyperdensity involving the right obturator internus suggestive of muscular hematoma measuring approximately 4.8 x 2.6 x 4.3 cm (series 5, image 224) with scattered free fluid in the anterior pelvis suggestive of blood products. Additional asymmetric enlargement of the right obturator externus, likely also muscular hematoma. Evaluation for active bleed cannot be determined on this noncontrast examination. Colonic divert iculosis. Hamstring enthesopathy at the origin and laterally. DX Hip And Pelvis Right 2-3 Views Result Date: 03/03/2024 Impression: Acute, comminuted, mildly displaced fractures of the right superior and inferior pubic rami. No additional fractures. Right hip alignment is maintained. Degenerative changes of the lower lumbar spine, hips, SI joints and pubic symphysis. Vascular calcifications. CT Lumbar Spine without IV Contrast Result Date: 03/03/2024 Impression: 1. No acute fracture or traumatic malalignment of the lumbar spine. 2. Lumbar spondylosis, as described. ASSESSMENT AND PLAN Kathryn Leon is a 89 y.o. female who suffered a fall after missing 2 steps and a sterile well. She landed on her right hip and right arm and was found to have acute comminuted right pubic rami fracture with associated pelvic hematoma and intramuscular hematomas. Hemoglobin is 11.6, WBC 7.7, creatinine is 1.31. Trauma chest abdomen and pelvis CTs were revealing of right hip fracture with the associated hematoma. Extravasation was noted on delay. Right elbow films were negative for osseous fractures. At this juncture, we see no indication for any acute trauma surgery intervention or admission to the Trauma Service. If she is admitted to another service, we will perform a tertiary survey tomorrow to ensure no injuries were missed. INJURIES: - acute comminuted/displaced right superior pubic rami fracture, extension to pubic body -comminuted nondisplaced right inferior pubic rami fracture -right obturator internus intramuscular hematoma -right obturator externus intramuscular hematoma PLAN: Disposition per Orthopedic Trauma, isolated hip injury/fracture with active extravasation The patient was seen and discussed with Dr. Stacy who is in agreement with the findings and plan. Please page the trauma service pager [phone] with questions or concerns regarding this patient. See Mcfarland M.D., Ph.D. General Surgery 03/03/24 1:42 AM CDT Associated attestation - Katelynn Stacy M.D. - 03/03/2024 2:50 AM CDT I have discussed the care of Ms. Leon with the resident/LANDSCAPE CREW LEADER-PA team. Please see the team's documentation from today for further details as I reviewed pertinent history, physical exam, labs, and imaging and agree with the history, physical exam, assessment, and plan. I have personally seen and evaluated the patient and formulated her care plan as a team. Ms. Leon is a pleasant 89-year-old female who presents as a level green trauma evaluation after falling down stairs in her home. She was reportedly coming down the stairs when she missed the last two steps. No reported loss of consciousness or head strike. Past medical history significant for osteoporosis, vertigo, rheumatoid arthritis, gastroesophageal reflux, seasonal allergies. She does notuse tobacco products. She has had a hysterectomy. At the time of my visit the patient is alert and appropriately interactive. She is trying to avoid on a bed noriega on successfully though she reports she desperately needs to empty her bladder. Primary complaint is right groin pain and suprapubic discomfort. I have had the chance to review the patient's past medical, surgical, social and family history. Pertinent positives noted above. A complete review of systems has been obtained, pertinent positives noted above; otherwise negative. Temperature: [36.4 ??C] 36.4 ??C Resp Rate: [16] 16 Blood Pressure: (149-158)/(64-71) 158/71 SpO2: [96 %-100 %] 98 % Pulse Rate: [70-83] 83 Neuro: Alert, interactive, non-toxic Head: normocephalic, atraumatic Eyes: sclera are anicteric Neck: Trachea midline, no obvious hematoma. Chest: breathing is unlabored Skin: warm, dry; abrasion/skin tear noted over her right elbow Abdomen: Soft, nondistended with mild suprapubic tenderness MSK: extremities are warm, well perfused; tender over right groin/hip Psychiatric: appropriate Labs and imaging have been reviewed. Patient's labs are notable for hemoglobin of 11.6 and platelet count of 151. White blood cell countis normal at 7.7. Creatinine is elevated at 1.3; potassium is within normal limits. Patient has undergone multiple CT images since her arrival to the emergency department yesterday evening. Initial CT imaging of her pelvis was done without IV contrast which revealed acute, comminuted and displaced right superior pubic ramus fracture with extension through the pubic body as well asmildly comminuted displaced right inferior pubic ramus fracture. Asymmetric enlargement of the obturator internus was noted on this imaging raising concern for hematoma. CT imaging of her lumbar spine was also completed yesterday evening which did not reveal any fracture or malalignment in the lumbar spine. She also had plain film imaging of her right hip and right elbow. Imaging of the right hip again noted the same fractures seen on CT scan without any additional fractures noted. Plain film imaging ofthe right elbow is negative for fracture. The patient subsequently underwent CT imaging of her head, cervical spine, chest/abdomen/pelvis with IV contrast early this morning. On preliminary review there is no evidence of intracranial hemorrhage or skull fracture. There is no evidence of traumatic findings within the chest cavity. No evidence of traumatic findings within the abdominal cavity. The right-sided pelvic fractures are again noted. With IV contrast intramuscular hematomas are confirmed. There is evidence of active arterial extravasation adjacent to the fracture but no evidence of active extravasation within the musculature. No evidence of fracture or malalignment in the thoracic spine based on reconstructed imaging. Assessment/plan 89-year-old female who suffered a fall at home. This has resulted in superior and inferior right-sided pubic rami fractures. There is associated active arterial extravasation adjacent to the fractures. Though there is intramuscular hematoma there was no active extravasation within the muscular hematoma. Recommend evaluation by Orthopedic surgery given the isolated nature of these injuries. Final disposition will be per their discretion; if polytrauma is identified the trauma team should be contacted to assist with disposition planning. At the discretion of Orthopedic surgery IR can be contacted to evaluate the arterial extravasation and determine if intervention is appropriate. Again, this decision will be deferred to Orthopedic surgery given the isolated nature of this injury. Hemoglobinmay also be rechecked to determine acute blood loss anemia. At the time of my visit the patient hasbeen unable to void and feels that she needs to void quite badly. I would recommend in and out catheterization versus placement of indwelling Rico. The trauma service remains available should questions or concerns arise. We can be reached by paging [phone]. Katelynn Stacy MD, FACS [employer] Specialist rail signal mechanic, [facility] Division of Trauma, Critical Care and General Surgery; Department of Surgery * Sharon Danielle M.D. - 03/03/2024 12:37 AM CDTAssociated Order(s): IP CONSULT TO ORTHOPEDIC SURGERY Orthopedic Trauma Surgery Consult Note Kathryn Leon ([id number]) 89 y.o.female Reason for Consult: Right superior and inferior pubic rami fractures SUBJECTIVE History of Present Illness Ms. Leon is an 89-year-old female w/ PMHx of rheumatoid arthritis not on any immunosuppressants,vertigo, BPV and osteoporosis who presented to the [facility] ED after sustaining closed right superior and inferior pubic rami fractures following a fall down her stairs while descending backwards around 9PM. They denied any head injury or loss of consciousness. Patient describes pain to the right groin as sharp, nonradiating, worsened with movement, and mostly relieved with rest. She has not borne weight on her right lower extremity since this injury occurred. Denies any numbness, tingling, or weakness. Denied any chest pain, shortness of breath, fevers, or chills. At baseline, the patient is a community ambulator who does not use any gait aids. Denies antecedentpain. Denies prior injury to the area. They do not take any anticoagulant or immunosuppressive medications. They deny any smoking, alcohol use, or drug use. She lives independently, as her passed 5 months ago. OBJECTIVE Vitals Temperature: [36.4 ??C] 36.4 ??C Resp Rate: [16] 16 Blood Pressure: (149)/(67) 149/67 SpO2: [97 %-100 %] 97 % Pulse Rate: [70-76] 70 Exam - General: Alert and oriented, not in acute distress, follows commands. - MSK: RIGHT Lower Extremity: Overall appearance: Skin free of skin tears, cuts or abrasions. Clean, dry, intact. No deformity appreciated.Compartments are soft. Calves soft and non-tender. Palpation: TTP about the right groin ROM / Stability: Fires hip abductors, adductors. Pain with hip flexion, unable to fully assess hip ROM due to pain Sensation: SILT at L2 - S1 dermatomes and Superficial and deep peroneal, sural, saphenous, tibial distributions. Motor: Firing Quads, Hamstrings, TA, GSC, EHL, FHL Circulation: No cyanosis noted. Palpable PT and DP pulses. Good capillary refill. Labs Lab Results Component Value Date HGB 11.6 03/02/2024 WBC 7.7 03/02/2024 PLT 151 (L) 03/02/2024 CREATININE 0.95 01/29/2021 NA 138 01/29/2021 INR 1.0 10/30/2015 Imaging X-ray and CT of the pelvis as well as the right elbow demonstrate the presence of right minimally displaced superior and inferior pubic rami fractures, in addition to a right zone 1 sacral ala fracture. No acute osseous injuries about the right elbow. ASSESSMENT / PLAN Impression & Report # Right superior and inferior pubic rami fractures # Right zone 1 sacral ala fracture Recommendations / Plan: In brief, this is a 89-year-old female with rheumatoid arthritis not on immunosuppressive agents who sustained closed right superior and inferior pubic rami fractures and a right zone 1 sacral ala fracture following a mechanical fall this evening. Fortunately, she remains neurovascularly intact. Wediscussed and reviewed her imaging in the diagnoses. We discussed that these injuries do not affectthe overall stability of her pelvic ring and may be managed nonoperatively. No acute surgical intervention recommended at this time. She may be weight-bearing as tolerated on the right lower extremity, with the use of a gait aid for stability and as needed. We discussed the anticipated rehabilitatio n timeline. She reports that she has a lot of help around her, including her children, in the wake of her 's recent passing. All questions were welcomed and answered. Activity: WBAT RLE Pain:per ED VTE Prophylaxis: none indicated for this injury Discharge from ED and follow-up with [facility] (to be arranged by our team). From 6am-6pm Thursday-Thursday, please contact [facility] at [phone] with any questions regarding this patient. If overnight [phone] or any time on weekends, please contact the Orthopedic Surgery house resident monomer recovery operator at [phone]. Sharon Danielle MD Orthopedic Surgery Resident 03/03/24 12:37 AM CDT documented in this encounter Nursing Notes * Felipa Abdullahi RDannN. - 03/09/2024 2:56 PM CDT Shift Goals: Clinical Goals for the Shift: VSS and safety Identify possible barriers to meeting goals/advancing plan of care: None End of Shift Summary: AVSS. Patient remained safe throughout shift. Both PIVs were removed, catheters intact. She left via transport to the front door. Her son is transporting her to the next facility. Problem: PAIN - ADULT Goal: PT VERBALIZES/DEMONSTRATES [...] from fall/fall injury Outcome: Adequate for Discharge Problem: POTENTIAL OR ACTUAL PRESSURE INJURY-ADULT Goal: Manage sensory Perception deficits to maintain and/or improve skin integrity Outcome: Adequate for Discharge Goal: Maintain optimal skin moisture to ensure or improve skin integrity Outcome: Adequate for Discharge Goal: Achieve optimal activity and/or mobility to maintain or improve skin integrity Outcome: Adequate for Discharge Goal: Nutrient intake appropriate for improving, restoring or maintaining skin integrity Outcome: Adequate for Discharge Goal: Minimize friction and/or shear to maintain or improve skin integrity Outcome: Adequate for Discharge Problem: Compromised Skin Integrity Goal: Skin/Tissue integrity maintained or improved Outcome: Adequate for Discharge Goal: Oral and Nasal mucous membranes remain intact Outcome: Adequate for Discharge Goal: Incisions, wounds, or drain sites healing without S/S of infection Outcome: Adequate for Discharge Problem: Incontinence and/or Moisture Goal: Skin integrity is maintained or improved Outcome: Adequate for Discharge * Theresa Xiong R.N. - 03/07/2024 6:07 PM CDT Problem: PAIN - ADULT Goal: PT VERBALIZES/DEMONSTRATES ADEQUATE COMFORT LEVEL OR BASELINE Outcome: Progressing Problem: KNOWLEDGE DEFICIT Goal: Patient/family/caregiver demonstrates understanding of disease process, treatment plan, medications, and discharge instructions Outcome: Progressing Problem: INFECTION - ADULT Goal: Absence of infection during hospitalization Outcome: Progressing Problem: SKIN/TISSUE INTEGRITY Goal: Skin/Tissue integrity maintained or improved Outcome: Progressing Goal: Oral and Nasal mucous membranes remain intact Outcome: Progressing Problem: SAFETY ADULT Goal: Maintain a safe environment Outcome: Progressing Problem: DISCHARGE PLANNING Goal: Patient discharge needs identified Outcome: Progressing Problem: SAFETY ADULT - RISK FOR FALL AND OR FALL INJURY Goal: Patient remains free from fall/fall injury Outcome: Progressing Problem: POTENTIAL OR ACTUAL PRESSURE INJURY-ADULT Goal: Manage sensory Perception deficits to maintain and/or improve skin integrity Outcome: Progressing Goal: Maintain optimal skin moisture to ensure or improve skin integrity Outcome: Progressing Goal: Achieve optimal activity and/or mobility to maintain or improve skin integrity Outcome: Progressing Goal: Nutrient intake appropriate for improving, restoring or maintaining skin integrity Outcome: Progressing Goal: Minimize friction and/or shear to maintain or improve skin integrity Outcome: Progressing Problem: Compromised Skin Integrity Goal: Skin/Tissue integrity maintained or improved Outcome: Progressing Goal: Oral and Nasal mucous membranes remain intact Outcome: Progressing Goal: Incisions, wounds, or drain sites healing without S/S of infection Outcome: Progressing Problem: Incontinence and/or Moisture Goal: Skin integrity is maintained or improved Outcome: Progressing Shift Goals: Clinical Goals for the Shift: Pt. will remain VSS and safety Identify possible barriers to meeting goals/advancing plan of care: None End of Shift Summary: Pt. Met above goal during this shift. VSS, Room air. Worked with PT. She is in chair most of the day and with all her meal. Regular diet; tolerated well. Pt. Had shower. Voidinggood. Pt. Had BM. C/o mild to moderate pain managed with pain regimens. * Miryam Holloway R.N. - 03/07/2024 7:39 AM CDT Shift Goals: Clinical Goals for the Shift: VSS, safety Identify possible barriers to meeting goals/advancing plan of care: Disease process End of Shift Summary: Pt had no significant event this shift, voiding ok, had a bowel movement lastnight. VSS, continue on 2 person assists when oob. Tolerating transfers with some difficulty. * Mandy Weiss R.N. - 03/06/2024 5:51 PM CDT Problem: PAIN - ADULT Goal: PT VERBALIZES/DEMONSTRATES ADEQUATE COMFORT LEVEL OR BASELINE Outcome: Progressing Problem: KNOWLEDGE DEFICIT Goal: Patient/family/caregiver demonstrates understanding of disease process, treatment plan, medications, and discharge instructions Outcome: Progressing Problem: INFECTION - ADULT Goal: Absence of infection during hospitalization Outcome: Progressing Problem: SKIN/TISSUE INTEGRITY Goal: Skin/Tissue integrity maintained or improved Outcome: Progressing Goal: Oral and Nasal mucous membranes remain intact Outcome: Progressing Problem: SAFETY ADULT Goal: Maintain a safe environment Outcome: Progressing Problem: DISCHARGE PLANNING Goal: Patient discharge needs identified Outcome: Progressing Problem: SAFETY ADULT - RISK FOR FALL AND OR FALL INJURY Goal: Patient remains free from fall/fall injury Outcome: Progressing Problem: POTENTIAL OR ACTUAL PRESSURE INJURY-ADULT Goal: Manage sensory Perception deficits to maintain and/or improve skin integrity Outcome: Progressing Goal: Maintain optimal skin moisture to ensure or improve skin integrity Outcome: Progressing Goal: Achieve optimal activity and/or mobility to maintain or improve skin integrity Outcome: Progressing Goal: Nutrient intake appropriate for improving, restoring or maintaining skin integrity Outcome: Progressing Goal: Minimize friction and/or shear to maintain or improve skin integrity Outcome: Progressing Problem: Compromised Skin Integrity Goal: Skin/Tissue integrity maintained or improved Outcome: Progressing Goal: Oral and Nasal mucous membranes remain intact Outcome: Progressing Goal: Incisions, wounds, or drain sites healing without S/S of infection Outcome: Progressing Problem: Incontinence and/or Moisture Goal: Skin integrity is maintained or improved Outcome: Progressing Shift Goals: Clinical Goals for the Shift: Pt will remain VSS and safe Identify possible barriers to meeting goals/advancing plan of care: None End of Shift Summary: pt met goal. pt is alert and oriented x3, VSS, RA. Orthostatic BP done this afternoon. Pt has had mild pain which is managed with scheduled tylenol. Pt appeared to be lethargic and tired. LR 1L bolus given. No much of appetite today, ate both breakfast and lunch about 25%. Adequate urine out put and one small BM. Pt has been to the chair twice this shift. * Miryam Holloway R.N. - 03/06/2024 5:09 AM CDT Shift Goals: Clinical Goals for the Shift: safety, VSS, pain and nausea management Identify possible barriers to meeting goals/advancing plan of care: syncope End of Shift Summary: This RN had placed pt on the bedside commode after administering enema to pt. About 2330 pt had hercall light on and this RN responded. While still sitting on the commode the pt voiced that she feltfaint.This RN turn on the call light to get help the notice the pt's head swung back and there was a blank stare in her eyes. This Nurse called out to the pt but there was no response or reaction so t his nurse activated code blue and within seconds the charge nurse came into the room followed by other unit staff. Pt was transferred to bed and she became responsive again within seconds. The code team arrived and took over her care. O2 dipping periodically while patient is asleep. * Miryam Holloway R.N. - 03/06/2024 12:36 AM CDT This RN had placed pt on the bedside commode after administering enema to pt. About 2330 pt had hercall light on and this RN responded. While still sitting on the commode the pt voiced that she feltfaint.This RN turn on the call light to get help the notice the pt's head swung back and there was a blank stare in her eyes. This Nurse called out to the pt but there was no response or reaction so t his nurse activated code blue and within seconds the charge nurse came into the room followed by other unit staff. Pt was transferred to bed and she became responsive again within seconds. The code team arrived and took over her care. * Mandy Weiss R.N. - 03/05/2024 4:15 PM CDT Problem: PAIN - ADULT Goal: PT VERBALIZES/DEMONSTRATES ADEQUATE COMFORT LEVEL OR BASELINE Outcome: Progressing Problem: KNOWLEDGE DEFICIT Goal: Patient/family/caregiver demonstrates understanding of disease process, treatment plan, medications, and discharge instructions Outcome: Progressing Problem: INFECTION - ADULT Goal: Absence of infection during hospitalization Outcome: Progressing Problem: SKIN/TISSUE INTEGRITY Goal: Skin/Tissue integrity maintained or improved Outcome: Progressing Goal: Oral and Nasal mucous membranes remain intact Outcome: Progressing Problem: SAFETY ADULT Goal: Maintain a safe environment Outcome: Progressing Problem: DISCHARGE PLANNING Goal: Patient discharge needs identified Outcome: Progressing Problem: SAFETY ADULT - RISK FOR FALL AND OR FALL INJURY Goal: Patient remains free from fall/fall injury Outcome: Progressing Problem: POTENTIAL OR ACTUAL PRESSURE INJURY-ADULT Goal: Manage sensory Perception deficits to maintain and/or improve skin integrity Outcome: Progressing Goal: Maintain optimal skin moisture to ensure or improve skin integrity Outcome: Progressing Goal: Achieve optimal activity and/or mobility to maintain or improve skin integrity Outcome: Progressing Goal: Nutrient intake appropriate for improving, restoring or maintaining skin integrity Outcome: Progressing Goal: Minimize friction and/or shear to maintain or improve skin integrity Outcome: Progressing Problem: Compromised Skin Integrity Goal: Skin/Tissue integrity maintained or improved Outcome: Progressing Goal: Oral and Nasal mucous membranes remain intact Outcome: Progressing Goal: Incisions, wounds, or drain sites healing without S/S of infection Outcome: Progressing Problem: Incontinence and/or Moisture Goal: Skin integrity is maintained or improved Outcome: Progressing Shift Goals: Clinical Goals for the Shift: Pt will walk in room and will sit on the chair x2 this shift Identify possible barriers to meeting goals/advancing plan of care: none End of Shift Summary: pt met goal. pt is alert and oriented x3, VSS, RA. Orthostatic BP done this evening. Pt has had mild pain which is managed with PRN oxy and scheduled tylenol. Pt worked with PT,also walked in the room. Appetite has improved, ate both breakfast and lunch. Adequate urine out put and BM x2 this shift. Pt has been to the chair twice this shift. * Ainsley Thomas RChelsey - 03/04/2024 9:43 PM CDT Problem: PAIN - ADULT Goal: PT VERBALIZES/DEMONSTRATES ADEQUATE COMFORT LEVEL OR BASELINE Outcome: Progressing Problem: KNOWLEDGE DEFICIT Goal: Patient/family/caregiver demonstrates understanding of disease process, treatment plan, medications, and discharge instructions Outcome: Progressing Problem: INFECTION - ADULT Goal: Absence of infection during hospitalization Outcome: Progressing Problem: SKIN/TISSUE INTEGRITY Goal: Skin/Tissue integrity maintained or improved Outcome: Progressing Goal: Oral and Nasal mucous membranes remain intact Outcome: Progressing Problem: SAFETY ADULT Goal: Maintain a safe environment Outcome: Progressing Problem: DISCHARGE PLANNING Goal: Patient discharge needs identified Outcome: Progressing Problem: SAFETY ADULT - RISK FOR FALL AND OR FALL INJURY Goal: Patient remains free from fall/fall injury Outcome: Progressing Problem: POTENTIAL OR ACTUAL PRESSURE INJURY-ADULT Goal: Manage sensory Perception deficits to maintain and/or improve skin integrity Outcome: Progressing Goal: Maintain optimal skin moisture to ensure or improve skin integrity Outcome: Progressing Goal: Achieve optimal activity and/or mobility to maintain or improve skin integrity Outcome: Progressing Goal: Nutrient intake appropriate for improving, restoring or maintaining skin integrity Outcome: Progressing Goal: Minimize friction and/or shear to maintain or improve skin integrity Outcome: Progressing Problem: Compromised Skin Integrity Goal: Skin/Tissue integrity maintained or improved Outcome: Progressing Goal: Oral and Nasal mucous membranes remain intact Outcome: Progressing Goal: Incisions, wounds, or drain sites healing without S/S of infection Outcome: Progressing Problem: Incontinence and/or Moisture Goal: Skin integrity is maintained or improved Outcome: Progressing Shift Goals: Clinical Goals for the Shift: vss and safe Identify possible barriers to meeting goals/advancing plan of care: NONE End of Shift Summary: Both goals met. VSS. Please see previous note by RN * Ainsley Thomas R.N. - 03/04/2024 7:34 PM CDT Pt has an open wound on the pt's sacrum/coccyx. Pt turned through out shift with foam repositioningwedges. A foam mephi sacrum border was placed on the pt's sacrum/coccyx. An LDA was created and a WOC consult was placed for the wound. The wound is red, erythema open wound on the pt's sacrum/coccyx. * Nenita Elkins MPAS, P.A.-C. - 03/03/2024 3:41 PM CDT [facility] was previously consulted regarding Kathryn's right-sided LC1 pelvic ring injury sustained on 03/02/2024. Please see signed consultation note by Dr. Sharon Danielle for further details. Imaging studies and plan of care reviewed with [facility] 3/Dr. Edwards. We recommend the below plan of care and continued non operative management: - Designated pelvic xrays - AP, inlet/outlet (ordered by OTS team). This will not change analyst, but rather for monitoring purposes and XR comparison when she returns for follow up - Weight bearing: full WBAT RLE, gait aid (walker) for ambulatory assistance / fall prevention - ROM: no restrictions RLE. We anticipate right sided groin pain with hip flexion movements ([id number], walking, etc) along with right sided low back pain. This should continue to improve as the fracture heals - Immobilization: none - Pain: OTC medications, ice/heat, topicals PRN - PT/OT - DVT prophylaxis: given pelvic fracture, recommend 28 day course of either Lovenox 40 mg daily (Lovenox 30 mg BID in hospital) versus Heparin 5,000 SQ TID if concern for kidney function. End date from OTS standpoint is 03/30/24 - Bone health: vitamin D / calcium supplementation Discharge recommendations will be updated from OTS standpoint. FOLLOW UP: 4-6 weeks with repeat pelvic xrays, we will coordinate this appointment. We will also coordinate endocrinology consultation for fragility fracture work up O[facility] 3 service will sign off. If there is concern for debilitating pain causing bed bound status, please update the team and we are happy to re-evaluate. From 6am-6pm Thursday-Thursday, please contact [facility]3 at [phone] with any questions regarding this patient. If overnight [phone] or any time on weekends, please contact the Orthopedic Surgery house resident monomer recovery operator at [phone]. documented in this encounter ED Notes * Stacey Boone M.D. - 03/03/2024 8:23 AM CDT Patient returned from IR to W14 shortly after opening of west pod. Per chart review, patient is s/pIR intervention of active arterial extravasation from pelvic fracture secondary to a mechanical fall. No anticoagulation. Trauma and Ortho appear to have evaluated and is awaiting medicine admission with Med 10 admission notes completed. Evaluated patient, pain well controlled after 25 mcg fentanyl at IR so ordered PRN while awaiting bed availability. VITAL SIGNS BP 150/63 Pulse 71 Temp 36.4 ??C (Oral) Resp 12 LMP (LMP Unknown) SpO2 100% ED Course as of 03/03/24 1041 Tania Mar 03, 2024 0825 Pain Score: 0 - No pain 0825 Blood Pressure: 150/63 0825 SpO2: 100 % 0825 Hemoglobin: 11.9 0933 Patient resting comfortably, transitioned to an AHA patient. 1040 Secure chat: [facility] will be primary team. Medicine Team provided sign out. Final Diagnoses: as of 03/03/24 1041 Fracture Pelvis Other Parts Closed Initial (HCC) - Pelvic hematoma with active extravasation Stacey Boone M.D. 03/03/24 1042 * Adebayo Shepard M.D., M.P.H. - 03/03/2024 12:08 AM CDT I have personally seen and examined this patient. I have fully participated in the care of this patient. I have reviewed all clinical information including history, physical exam, orders, and plan. Dani with the note of the resident. Assessment and Plan Kathryn Leon is a 89 y.o. female who presents for evaluation of right hip pain and back pain after a fall. The patient reports that she was walking backwards down the stairs as she has beeninstructed to but Ms. Calculated and missed the last 2 steps causing her to fall backwards. She landed on her right hip and right elbow. Did not hit her head and suffered no loss of consciousness. She is not anticoagulated. Currently she complains of right inguinal pain, right hip pain and low backpain. Exam General: Awake, alert, oriented HEENT: No external signs of trauma, left pupil reactive to light, right pupil ellipse shaped (not new), nonreactive. C-spine nontender with painless range of motion Heart: Regular rate and rhythm Lungs: Clear to auscultation Chest: Stable and nontender Abdomen: Soft, nondistended nontender Pelvis: Stable with right-sided tenderness to palpation Extremities: Right upper extremity with skin tear over the elbow, full range of movement in the shoulder elbow and wrist with tenderness to palpation in the right elbow. Right lower extremity externally rotated but not shortened. Tenderness to palpation over the major trochanter. I/R/P: 89-year-old with backwards fall with right hip and low back pain and right elbow pain. Not anticoagulated, no loss of consciousness. Based on her alertness and lack of head trauma and no symptoms will not obtain CT head and CT C-spine. We will obtain x-rays of the right elbow as well as the right hip and pelvis. Will obtain scans of the lower back and in conjunction with that also CTs of the pelvis and the hip. ECG reassuring. I reviewed the following external records: office records and primary care records. ED Course as of 03/03/24 2242 Wed Mar 02, 2024 2347 ECG 12 Lead Normal sinus rhythm, normal electrical axis and intervals, nonspecific ST changes V4 and V5. No overt ischemia Tania Mar 03, [address] Pelvis without IV Contrast In my interpretation there is a right at least inferior pubic ramus fracture 0116 DX Elbow Right 3+ Views I do not see any fractures in the right elbow 0116 CT Lumbar Spine without IV Contrast IMPRESSION: 1. No acute fracture or traumatic malalignment of the lumbar spine. 2. Lumbar spondylosis, as described. 0117 CT Pelvis without IV Contrast IMPRESSION: Acute comminuted and displaced right superior pubic ramus fracture with extension through the pubicbody. Additional mildly comminuted nondisplaced right inferior pubic ramus fracture. No fracture involving the femoral head or acetabulum. Asymmetric enlargement and hyperdensity involving the right obturator internus suggestive of muscular hematoma measuring approximately 4.8 x 2.6 x 4.3 cm (series 5, image 224) with scattered free fluid in the anterior pelvis suggestive of blood products. Additional asymmetric enlargement of the right obturator externus, likely also muscular hematoma. Evaluation for active bleed cannot be determined on this noncontrast examination. Colonic diverticulosis. Hamstring enthesopathy at the origin and laterally. 0347 CT Abdomen Pelvis with IV Contrast IMPRESSION: 1. No acute thoracic findings. 2. Comminuted right pelvic fracture with adjacent hematoma with evidence of active arterial extravasation. 3. Intramuscular hematomas involving the right obturator externus and internus without evidence of active extravasation. [address] Stacy who was evaluated the patient. She does have the comminuted right pelvic fracture with adjacent hematoma with evidence of active extravasation. It is an isolated injuryand Dr. Stacy recommends orthopedic admission. We will rediscuss with Orthopedic surgery. 521 We will go to IR now Final Diagnoses: as of 03/03/242241 Fracture Pelvis Other Parts Closed Initial (HCC) - Pelvic hematoma with active extravasation My ECG interpretation is documented in ED Course. My CT Scan interpretation is documented in ED Course. I discussed the management of the patient with: Orthopedic Surgeon. Adebayo Shepard M.D., M.P.H. 03/03/242241 * Cam Luna M.D. - 03/02/2024 11:33 PM CDT CHIEF COMPLAINT/REASON FOR VISIT Fall and Hip Injury Kathryn is a an 89-year-old woman who is not anticoagulated presenting to the ED with right hip pain following a mechanical fall. Prior to arrival, she had fallen down 2 steps to her home, landing on her right hip and her back. She did not hit her head. She largely complains of right hip pain. She also sustained a skin tear to the right elbow and has mild right elbow pain. She has been unable to ambulate. Initial Vitals Temperature 03/02/24 2300 36.4 ??C Pulse Rate 03/02/24 2300 76 Heart Rate -- Resp Rate 03/02/24 2300 16 Blood Pressure 03/02/24 2300 149/67 SpO2 03/02/24 2300 100 % Pain Score 03/02/24 2257 7 On my exam, she is nontoxic and appears well overall when not being moved. She does have severe pain and discomfort when being transferred to the bed. She has tenderness to the right hip without significant gross deformity. She also has lower lumbar spinal tenderness. She has a skin tear to the right elbow underlying bony tenderness. No gross deformity. No other evidence of traumatic injury. We will obtain CT of the lumbar spine, pelvis, and right hip to assess for traumatic injury. X-ray will be obtained as well. Basic labs and an EKG will be obtained. Pain will be controlled with fentanyl. ED Course: -CT imaging shows pubic rami fx's with active arterial bleed -TCGS and orthopedic surgery have no recommendations at this time -repeat hematocrit does not show any significant drop and additionally her vitals have remain largely unchanged Patient will require admission for serial hemoglobins and possible IR vascular intervention. Cam Luna M.D. Resident 03/03/24 0519 * Kylie Winchester R.N. - 03/02/2024 11:06 PM CDT Kathryn presents to the ED via EMS after falling on her right hip on the last two steps of her stairs.She did not lose consciousness or hit her head. She rates her pain 7 out of 10 on her right groin. She has a skin laceration on her right elbow. Kylie Winchester R.N. 03/02/24 2309 documented in this encounter Miscellaneous Notes * Documentation Clarification - Rene Geronimo, CYRIL, C.N.P., M.S.N. 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 Clinical Indicators/Risk Factors/Treatment: 09/30/2022 BMD Spine Hips, Kerri: FRAX Risk Factors: Family Hist. (Parent hip fracture), Glucocorticoids (Chronic), Secondary Osteoporosis, Rheumatoid Arthritis. IMPRESSION: Low bone density (Osteopenia) DualFemur (region: Neck Right) 03/02 DX Hip and Pelvis right: Acute, comminuted, mildly displaced fractures of the right superior and inferior pubic rami. Degenerative changes of the lower lumbar spine, hips, SI joints and pubic symphysis. 03/03 progress note, Juanpablo: 89 y.o. female who and acute comminuted displaced right superior pubic rami fracture right inferiorpubic rami fracture and intramuscular hematoma due to ground level fall. Acute comminuted and displaced right superior pubic ramus fracture with extension through the pubic body. Additional mildly comminuted nondisplaced right inferior pubic ramus fracture. Acute minimally displaced fracture involving the inferior right sacral ala with extension to the inferior sacroiliac joint. Osteoporosis, Arthritis Rheumatoid. Restarted calcium carbonate-vitamin D3. Holding Alendronate 70 mg tablet, not started. 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 - 03/06/2024 12:08 AM CDT REASON FOR CONSULT Code blue Emergency response to patient with syncope. HISTORY OF PRESENT ILLNESS Ms. Kathryn Leon is an 89 y.o. female admitted to the trauma service in the setting of a mechanical fall. This evening the patient was undergoing an enema when she became unresponsive for a period of 1-2 minutes. The nursing staff move the patient to the bed and activated the code blue system. At the time of our arrival, patient was lying in the bed, awake, and able to converse with us. She had no preceding symptoms and had no complaints other than pelvic pain. VITAL SIGNS Please review the Code Narrator for details of the resuscitation. PHYSICAL EXAMINATION General: Alert, oriented Skin: Pallor Eyes: Right pupil abnormality chronic for patient, left reactive ENT: Hearing grossly intact. Nares patent. Septum midline. No oral or pharyngeal erythema or lesions noted. Lungs: Normal rate and effort. Clear to auscultation. Heart: Regular rate and rhythm. No murmurs appreciated. No extremity edema. Abdomen: Soft, non-tender to palpation Joints: Clubbing absent Neuro: Alert and oriented. Moves all extremities. Bilateral strength equal in the proximal and distal extremities. Mental: Mood and affect congruent. DIAGNOSTICS I have reviewed all relevant laboratory, imaging, and other diagnostic data available during this resuscitation. SUMMARY OF EVENTS: Ms. Kathryn Leon is an 89 y.o. female admitted to the trauma service in the setting of a mechanical fall. Code blue activated for syncope, converted to CORRECTIONAL TREATMENT SPECIALIST. Etiology of patient's syncope most consistent with vasovagal event. Hemodynamically stable and returned to baseline mentation shortly after the episode. Blood glucose elevated to 143. CBC and BMP to be acquired and followed by the primary team. EKG was performed and compared to prior and was largely similar with J-point elevation and without any acute changes. The primary team will continue to monitor for any other changes to mentation, altered hemodynamics. The code was supervised by Dr. Aditya Grimes (data security consultant physician). Critical care time 30 minutes. This is time spent at this critically ill patient's bedside activelyinvolved in patient care as well as the coordination of care and discussions with the patient's family. This does not include any procedural time which has been billed separately. * Hospital Course - Renée Brannon M.D. - 03/03/2024 7:07 AM CDT #1 History Of Falling Kathryn Leon was admitted to [facility] for management of their trauma-related injuries. After an initial trauma evaluation in the emergency department, she was admitted to Trauma-Critical Care-General Surgery (TCGS) for further management and evaluation. A tertiary survey was performed the following morning which revealed no new injuries. #2 Fracture Pelvis Other Parts Closed Initial (HCC) Acute comminuted and displaced right superior, inferior, and pubic body fractures The orthopedic trauma surgery team 3 was consulted. They deferred admission to their service given pelvic bleeding secondary to solitary pelvic injuries. It was determine to proceed with nonoperativemanagement. The patient is weight- bearing as tolerated on her right lower extremity. #[address] Pelvis Imaging: Multifocal sites of active arterial extravasation arising from the replaced leftobturator, right obturator, and right medial circumflex femoral arteries. All sites treated with Gelfoam embolization. The patient is CT pelvis revealed multifocal sites of active arterial extravasation. These were treated with Gel-Foam embolization. Her hemoglobin was monitored throughout her hospital stay, hemoglobin was 8.6 on discharge #4 Vertigo Benign Paroxysmal Positional Bilateral #5 Vertigo #6 Neuropathy Peripheral #7 Mononeuropathy Lower Limb Right The Geriatrics medicine team was consulted to assist with medical management. Fall risk precautionswere implemented for the patient, her home meclizine was held. Per Geriatrics, the risk of this medication is greater than the benefit. A repeat B12 lab was obtained for her neuropathy, this was supratherapeutic at 1299. Her medication list includes gabapentin at home for neuropathy, however patient reports that she does not take this very often, so this was not started during the admission. #8 Osteoporosis The patient takes Fosamax at home, this was held initially during her hospitalization. Her calcium carbonate-vitamin D3 was restarted. #9 Arthritis Rheumatoid (HCC) The patient's NSAIDs were held on admission. #10 Hypertension The patient reported feeling dizzy upon standing, orthostatic vital signs were obtained. 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 No follow-up necessary given no changes in the last 17 years. Physical therapy was consulted to assist with mobilization. Twist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 was also consulted to assist with possible placement/therapy needs. When she was tolerating a regular diet,her pain was well controlled on oral medications, her bowel and bladder function had returned to its prior state andshe was mobilizing with physical therapy/without difficulty she was dismissed to short term rehab facility. documented in this encounter Plan of Treatment Upcoming Encounters Date Type Department Care Team (Latest Contact Info) Description 04/04/2024 2:30 PM CDT Comprehensive Visit Department of Rehabilitation Services in [address] [phone] Rashaun Garcia, PDannT. [address] [place] [phone] 04/05/2024 10:30 AM CDT Appointment Department of Radiology, [facility], in [address] [phone] Nenita Elkins MPAS, P.A.-C. [address] [place] [phone] 04/05/2024 11:00 AM CDT Comprehensive Visit Division of Endocrinology in [address] [phone] Nenita Elkins MPAS, P.A.-C. [address] [place] [phone] 04/05/2024 11:00 AM CDT Office Visit Department of Orthopedic Surgery in [address] [phone] Nenita Elkins MPAS, P.A.-C. [address] [place] [phone] 04/07/2024 2:30 PM CDT Clinical Support Department of Rehabilitation Services in [address] [phone] Yobany Bateman APRN, C.N.P., D.N.P. [address] [place] [phone] Rashaun Garcia, P.TDann [address] [place] [phone] 04/08/2024 10:15 AM CDT Comprehensive Visit Department of Rehabilitation Services in [address] [phone] Clinton De Anda, P.T. [address] [place] [phone] 04/11/2024 2:30 PM CDT Clinical Support Department of Rehabilitation Services in [address] [place] [phone] Yobany Bateman APRN, Angy.N.P., D.N.P. [address] [place] [phone] Rashaun Garcia, P.TDann [address] [place], [place] [address] [phone] 04/14/2024 10:30 AM CDT Clinical Support Department of Rehabilitation Services in [address] [place] [address] Yobany Bateman APRN, Angy.N.P., D.N.P. [address] [place] [phone] Rashaun Garcia, P.T. [address] [place], [place] [address] [address] 04/18/2024 10:30 AM CDT Clinical Support Department of Rehabilitation Services in [address] [place] [address] Yobany Bateman APRN, C.N.P., D.N.P. [address] [place] [phone] Rashaun Garcia, P.T. [address] [place], [place] [address] [address] 04/21/2024 10:30 AM CDT Clinical Support Department of Rehabilitation Services in [address] [place] [address] Yobany Bateman APRN, C.N.P., D.N.P. [address] [place] [address] Rashaun Garcia P.T. [address] [address] documented as of this encounter Procedures Procedure Name Priority Date/Time Associated Diagnosis Comments CBC WITH DIFFERENTIAL, B Routine 03/07/2024 9:21 PM CDT BASIC METABOLIC PANEL, S/P Routine 03/07/2024 9:21 PM CDT CBC WITH DIFFERENTIAL, B Routine 03/06/2024 8:39 PM CDT BASIC METABOLIC PANEL, S/P Routine 03/06/2024 8:39 PM CDT DX ABDOMEN PORTABLE ANTERIOR POSTERIOR 1 VIEW RAD - Timed (for specific dates/times) 03/06/2024 7:57 AM CDT CBC WITHOUT DIFFERENTIAL, B Timed 03/06/2024 7:25 AM CDT BASIC METABOLIC PANEL, S/P Timed 03/06/2024 7:25 AM CDT ECG Routine 03/05/2024 11:54 PM CDT CBC WITHOUT DIFFERENTIAL, B STAT 03/05/2024 11:49 PM CDT BASIC METABOLIC PANEL, S/P STAT 03/05/2024 11:49 PM CDT GLUCOSE POCT, B Routine 03/05/2024 11:44 PM CDT DX ABDOMEN PORTABLE ANTERIOR POSTERIOR 1 VIEW RAD - Semiurgent (Fast; most ED patients; some inpatients) 03/05/2024 8:42 PM CDT CBC WITHOUT DIFFERENTIAL, B Routine 03/05/2024 10:36 AM CDT BASIC METABOLIC PANEL, S/P Routine 03/05/2024 10:36 AM CDT HEMOGLOBIN, B Timed 03/04/2024 6:38 AM CDT HEMOGLOBIN, B Timed 03/04/2024 2:02 AM CDT CBC WITHOUT DIFFERENTIAL, B Routine 03/03/2024 8:16 PM CDT VITAMIN B12 ASSAY, S Routine 03/03/2024 8:16 PM CDT BASIC METABOLIC PANEL, S/P Routine 03/03/2024 8:16 PM CDT BASIC METABOLIC [...] patients; some inpatients) 03/03/2024 12:23 AM CDT CBC WITH DIFFERENTIAL, B STAT 03/02/2024 11:55 PM CDT BASIC METABOLIC PANEL, S/P STAT 03/02/2024 11:55 PM CDT TYPE AND SCREEN STAT 03/02/2024 11:50 PM CDT ECG STAT 03/02/2024 11:45 PM CDT documented in this encounter Results * (ABNORMAL) Basic Metabolic Panel (03/07/2024 9:21 PM CDT) [facility] Potassium, S 4.7 3.6 - 5.2 mmol/L [...] CDT Renée Brannon M.D. LAB BLOOD ADD-ON [address] [address], [facility] 200 [place] [address] * (ABNORMAL) CBC with Differential, Blood (03/07/2024 9:21 PM CDT) Hemoglobin 8.6(L) 11.6 - 15.0 g/dL 03/07/2024 [...] CDT Renée Brannon M.D. LAB BLOOD ADD-ON [facility] [address] [place] [address], [facility] DTL [facility] [address] [place] [address] [facility] [address] [place] [address] * (ABNORMAL) Basic Metabolic Panel (03/06/2024 8:39 PM CDT) Potassium, S 4.9 3.6 - 5.2 mmol/L 03/06/2024 9:27 PM CDT DTL Sodium, S 130(L) 135 - 145 mmol/L 03/06/2024 9:27 PM CDT DTL Chloride, S 94(L) 98 - 107 mmol/L 03/06/2024 9:27 PM CDT DTL Bicarbonate, S 25 22 - 29 mmol/L 03/06/2024 9:27 PM CDT DTL Anion Gap 11 7 - 15 03/06/2024 9:27 PM CDT DTL BUN (Blood Urea Nitrogen), S 36(H) 6 - 21 mg/dL 03/06/2024 9:27 PM CDT DTL Creatinine 1.11(H) 0.59 - 1.04 mg/dL 03/06/2024 9:27 PM CDT DTL Estimated GFR (eGFR) 48(L) >=60 mL/min/BSA 03/06/2024 9:27 PM CDT DTL Comment: Estimated GFR calculated using the 2020 CKD_EPI creatinine equation. Calcium, Total, S 9.2 8.8 - 10.2 mg/dL 03/06/2024 9:27 PM CDT DTL Glucose, S 152(H) 70 - 140 mg/dL 03/06/2024 9:27 PM CDT DTL Blood (Blood, Venous) 03/06/2024 8:39 PM CDT 03/06/2024 9:13 PM CDT Renée Brannon M.D. LAB BLOOD ADD-ON [address] [address], [facility] [address] [place] [address] * (ABNORMAL) CBC with Differential, Blood (03/06/2024 8:39 PM CDT) Hemoglobin 8.7(L) 11.6 - 15.0 g/dL 03/06/2024 9:08 PM CDT DTL Hematocrit 25.9(L) 35.5 - 44.9 % 03/06/2024 9:08 PM CDT DTL Erythrocytes 2.83(L) 3.92 - 5.13 x10(12)/L 03/06/2024 9:08 PM CDT DTL MCV 91.5 78.2 - 97.9 fL 03/06/2024 9:08 PM CDT DTL RBC Distrib Width 13.0 12.2 - 16.1 % 03/06/2024 9:08 PM CDT DTL Platelet Count 150(L) 157 - 371 x10(9)/L 03/06/2024 9:08 PM CDT DTL Leukocytes 5.8 3.4 - 9.6 x10(9)/L 03/06/2024 9:08 PM CDT DTL Neutrophils 3.89 1.56 - 6.45 x10(9)/L 03/06/2024 9:08 PM CDT DHPM Lymphocytes 1.12 0.95 - 3.07 x10(9)/L 03/06/2024 9:08 PM CDT DTL Monocytes 0.65 0.26 - 0.81 x10(9)/L 03/06/2024 9:08 PM CDT DTL Eosinophils 0.14 0.03 - 0.48 x10(9)/L 03/06/2024 9:08 PM CDT DTL Basophils <0.03 0.01 - 0.08 x10(9)/L 03/06/2024 9:08 PM CDT DTL Blood (Blood, Venous) 03/06/2024 8:39 PM CDT 03/06/2024 9:02 PM CDT Renée Brannon M.D. LAB BLOOD ADD-ON [facility] [address] [place] [address], [facility] DTL [facility] [address] [place] [address] [facility] [address] [place] [address] * DX Abdomen Portable Anterior Posterior 1 View (03/06/2024 7:57 AM CDT) Anatomical Region Laterality Modality Abdomen, Abdominal RST [...] CBC without Differential (03/06/2024 7:25 AM CDT) Hemoglobin 9.4(L) 11.6 - 15.0 g/dL 03/06/2024 [...] CDT Melisa Erwin M.D. LAB BLOOD ADD-ON [facility] [address] [place] [address], [facility] DTL [facility] [address] [place] [address] * (ABNORMAL) Basic Metabolic Panel (03/06/2024 7:25 AM CDT) Potassium, S 4.5 3.6 - 5.2 mmol/L 03/06/2024 8:23 AM CDT DTL Sodium, S 131(L) 135 - 145 mmol/L 03/06/2024 8:23 AM CDT DTL Chloride, S 94(L) 98 - 107 mmol/L 03/06/2024 8:23 AM CDT DTL Bicarbonate, S 28 22 - 29 mmol/L 03/06/2024 8:23 AM CDT DTL Anion Gap 9 7 - 15 03/06/2024 8:23 AM CDT DTL BUN (Blood Urea Nitrogen), S 35(H) 6 - 21 mg/dL 03/06/2024 8:23 AM CDT DTL Creatinine 1.16(H) 0.59 - 1.04 mg/dL 03/06/2024 8:23 AM CDT DTL Estimated GFR (eGFR) 46(L) >=60 mL/min/BSA 03/06/2024 8:23 AM CDT DTL Comment: Estimated GFR calculated using the 2020 CKD_EPI creatinine equation. Calcium, Total, S 9.5 8.8 - 10.2 mg/dL 03/06/2024 8:23 AM CDT DTL Glucose, S 120 70 - 140 mg/dL 03/06/2024 8:23 AM CDT DTL Blood (Blood, Venous) 03/06/2024 7:25 AM CDT 03/06/2024 7:53 AM CDT Melisa Erwin M.D. LAB BLOOD ADD-ON [facility] [address] [place] [address], [place] [address] [address] * ECG 12 Lead (03/05/2024 11:54 PM CDT) Ventricular Rate ECG/Min 73 BPM MUSE ID Interval 168 ms MUSE QRSD Interval 86 ms MUSE QT Interval 376 ms MUSE QTC Interval 414 ms MUSE P [place] 63 degrees MUSE R [place] 40 degrees MUSE T Wave [place] 60 degrees MUSE 03/05/2024 11:5 4 PM [...] M.D. ECG ORDERABLES MUSE NA * (ABNORMAL) Basic Metabolic Panel (03/05/2024 11:49 PM CDT) Potassium, P 4.7 3.6 - 5.2 mmol/L 03/06/2024 12:48 AM CDT DTL Sodium, P 128(L) 135 - 145 mmol/L 03/06/2024 12:48 AM CDT DTL Chloride, P 92(L) 98 - 107 mmol/L 03/06/2024 12:48 AM CDT DTL Bicarbonate, P 24 22 - 29 mmol/L 03/06/2024 12:48 AM CDT DTL Anion Gap, P 12 7 - 15 03/06/2024 12:48 AM CDT DTL BUN (Blood Urea Nitrogen), P 37(H) 6 - 21 mg/dL 03/06/2024 12:48 AM CDT DTL Creatinine 1.21(H) 0.59 - 1.04 mg/dL 03/06/2024 12:48 AM CDT DTL Estimated GFR (eGFR) 43(L) >=60 mL/min/BSA 03/06/2024 12:48 AM CDT DTL Comment: Estimated GFR calculated using the 2020 CKD_EPI creatinine equation. Calcium, Total, P 9.3 8.8 - 10.2 mg/dL 03/06/2024 12:48 AM CDT DTL Glucose, P 140 70 - 140 mg/dL 03/06/2024 12:48 AM CDT DTL Blood (Blood, Venous) 03/05/2024 11:49 PM CDT 03/06/2024 12:07 AM CDT Marychuy Estes M.D. LAB BLOOD ADD-ON [facility] [address] [place] [address], [facility] [address] [place] [address] * (ABNORMAL) CBC without Differential (03/05/2024 11:49 PM CDT) Hemoglobin 9.9(L) 11.6 - 15.0 g/dL 03/05/2024 11:58 PM CDT STMA Hematocrit 28.2(L) 35.5 - 44.9 % 03/05/2024 11:58 PM CDT STMA Erythrocytes 3.16(L) 3.92 - 5.13 x10(12)/L 03/05/2024 11:58 PM CDT STMA MCV 89.2 78.2 - 97.9 fL 03/05/2024 11:58 PM CDT STMA RBC Distrib Width 12.8 12.2 - 16.1 % 03/05/2024 11:58 PM CDT STMA Platelet Count 151(L) 157 - 371 x10(9)/L 03/05/2024 11:58 PM CDT STMA Leukocytes 9.0 3.4 - 9.6 x10(9)/L 03/05/2024 11:58 PM CDT STMA Blood (Blood, Venous) 03/05/2024 11:49 PM CDT 03/05/2024 11:56 PM CDT Marychuy Estes M.D. LAB BLOOD ADD-ON [facility] [address] [place] [address], [facility] STMA [facility] [address] [place] [address] * (ABNORMAL) Glucose, POCT (03/05/2024 11:44 PM CDT) Glucose, POCT, B 143(H) 70 - 140 mg/dL 03/05/2024 11:53 PM CDT PCLX Site Capillary 03/05/2024 11:53 PM CDT PCLX Last Intake > 4 hours 03/05/2024 11:53 PM CDT PCLX Blood 03/05/2024 11:4 4 PM CDT 03/05/2024 11:53 PM CDT Unknown Provider LAB POCT ORDERABLES- MANUAL POC [facility] [address] [place] [address], [facility] PCLX [facility] [address] [place] [address] * DX Abdomen Portable Anterior Posterior 1 View (03/05/2024 8:42 PM CDT) Anatomical Region Laterality Modality Abdomen, Abdominal RST LOS, Abdominal ARZ LOS, Abdominal FLA LOS N/A Digital Radiography Impressions 03/06/2024 10:38 AM CDT Compared with CT abdomen pelvis 03/03/2024. Mild gaseous distention of the stomach. Nonobstructive bowel gas pattern. Moderate amount of stool throughout the colon extending to the rectum. Redemonstration of right pelvic fractures which are better seen on CT abdomen and pelvis. Narrative 03/06/2024 10:38 AM CDT EXAM: ??DX ABDOMEN PORTABLE ANTERIOR POSTERIOR 1 VIEW Procedure Note Alfonso Ariza M.D. - 03/06/2024 EXAM: DX ABDOMEN PORTABLE ANTERIOR POSTERIOR 1 VIEW IMPRESSION: Compared with CT abdomen pelvis 03/03/2024. Mild gaseous distention of thestomach. Nonobstructive bowel gas pattern. Moderate amount of stoolthroughout the colon extending to the rectum. Redemonstration of rightpelvic fractures which are better seen on CT abdomen and pelvis. Melisa Erwin M.D. IMG DIAGNOSTIC IMAGI NG PROCEDURES * (ABNORMAL) Basic Metabolic Panel (03/05/2024 10:36 AM CDT) [facility] Potassium, S 4.4 3.6 - 5.2 mmol/L 03/05/2024 11:41 AM CDT DTL Sodium, S 131(L) 135 - 145 mmol/L 03/05/2024 11:41 AM CDT DTL Chloride, S 95(L) 98 - 107 mmol/L 03/05/2024 11:41 AM CDT DTL Bicarbonate, S 23 22 - 29 mmol/L 03/05/2024 11:41 AM CDT DTL Anion Gap 13 7 - 15 03/05/2024 11:41 AM CDT DTL BUN (Blood Urea Nitrogen), S 32(H) 6 - 21 mg/dL 03/05/2024 11:41 AM CDT DTL Creatinine 1.27(H) 0.59 - 1.04 mg/dL 03/05/2024 11:41 AM CDT DTL Estimated GFR (eGFR) 41(L) >=60 mL/min/BSA 03/05/2024 11:41 AM CDT DTL Comment: Estimated GFR calculated using the 2020 CKD_EPI creatinine equation. Calcium, Total, S 9.2 8.8 - 10.2 mg/dL 03/05/2024 11:41 AM CDT DTL Glucose, S 123 70 - 140 mg/dL 03/05/2024 11:41 AM CDT DTL Blood (Blood, Venous) 03/05/2024 10:36 AM CDT 03/05/2024 11:22 AM CDT Melisa Erwin M.D. LAB BLOOD ADD-ON [facility] [address] [place] [address], [place] DTL [facility] [address] [place] [address] * (ABNORMAL) CBC without Differential (03/05/2024 10:36 AM CDT) Hemoglobin 9.8(L) 11.6 - 15.0 g/dL 03/05/2024 11:12 AM CDT DTL Hematocrit 29.3(L) 35.5 - 44.9 % 03/05/2024 11:12 AM CDT DTL Erythrocytes 3.23(L) 3.92 - 5.13 x10(12)/L 03/05/2024 11:12 AM CDT DTL MCV 90.7 78.2 - 97.9 fL 03/05/2024 11:12 AM CDT DTL RBC Distrib Width 12.9 12.2 - 16.1 % 03/05/2024 11:12 AM CDT DTL Platelet Count 146(L) 157 - 371 x10(9)/L 03/05/2024 11:12 AM CDT DTL Leukocytes 7.3 3.4 - 9.6 x10(9)/L 03/05/2024 11:12 AM CDT DTL Blood (Blood, Venous) 03/05/2024 10:36 AM CDT 03/05/2024 11:06 AM CDT Melisa Erwin M.D. LAB BLOOD ADD-ON [facility] [address] [place] [address] * (ABNORMAL) Hemoglobin (03/04/2024 6:38 AM CDT) Pathologist [facility] Hemoglobin 10.4(L) 11.6 - 15.0 g/dL 03/04/2024 7:14 AM CDT DTL Blood (Blood, Venous) 03/04/2024 6:38 AM CDT 03/04/2024 7:01 AM CDT Renée Brannon M.D. LAB BLOOD ADD-ON [facility] [address] [place], [place] [id number] [place] [address] [facility] [address] [place] [address] * (ABNORMAL) Hemoglobin (03/04/2024 2:02 AM CDT) [facility] Hemoglobin 10.5(L) 11.6 - 15.0 g/dL 03/04/2024 2:59 AM CDT DT Blood (Blood, Venous) 03/04/2024 2:02 AM CDT 03/04/2024 2:49 AM CDT Renée Brannon M.D. LAB BLOOD ADD-ON [facility] [address] [place], [place] [id number] [place] [address] * (ABNORMAL) Vitamin B12 Assay (03/03/2024 8:16 PM CDT) [facility] Vitamin B12 Assay, S 1299(H) 180 - 914 ng/L 03/04/2024 7:32 AM CDT DT Comment: ----ADDITIONAL INFORMATION---- In patients being evaluated [...] 03/03/2024 9:14 PM CDT Juan Mcpherson Jr., DELIMBER OPERATOR, C.N.P., M.S.N . LAB BLOOD ADD-ON [facility] [address] [place], [place] [phone] [place] [address] 200 [place] [address] * (ABNORMAL) Basic Metabolic Panel (03/03/2024 8:16 PM CDT) [facility] Potassium, S 4.2 3.6 - 5.2 mmol/L 03/03/2024 9:38 PM CDT DTL Sodium, S 134(L) 135 - 145 mmol/L 03/03/2024 9:38 PM CDT DTL Chloride, S 95(L) 98 - 107 mmol/L 03/03/2024 9:38 PM CDT DTL Bicarbonate, S 26 22 - 29 mmol/L 03/03/2024 9:38 PM CDT DTL Anion Gap 13 7 - 15 03/03/2024 9:38 PM CDT DTL BUN (Blood Urea Nitrogen), S 21 6 - 21 mg/dL 03/03/2024 9:38 PM CDT DTL Creatinine 1.14(H) 0.59 - 1.04 mg/dL 03/03/2024 9:38 PM CDT DTL Estimated GFR (eGFR) 47(L) >=60 mL/min/BSA 03/03/2024 9:38 PM CDT DTL Comment: Estimated GFR calculated using the 2020 CKD_EPI creatinine equation. Calcium, Total, S 9.7 8.8 - 10.2 mg/dL 03/03/2024 9:38 PM CDT DTL Glucose, S 160(H) 70 - 140 mg/dL 03/03/2024 9:38 PM CDT DTL Blood (Blood, Venous) 03/03/2024 8:16 PM CDT 03/03/2024 9:14 PM CDT Juan Mcpherson Jr., DELIMBER OPERATOR, C.N.P., M.S.N . LAB BLOOD ADD-ON [facility] [address] [place] [address], [facility] [address] [place] [address] * (ABNORMAL) CBC without Differential (03/03/2024 8:16 PM CDT) Pathologist [facility] Hemoglobin 11.3(L) 11.6 - 15.0 g/dL 03/03/2024 8:58 PM CDT DTL Hematocrit 32.9(L) 35.5 - 44.9 % 03/03/2024 8:58 PM CDT DTL Erythrocytes 3.68(L) 3.92 - 5.13 x10(12)/L 03/03/2024 8:58 PM CDT DTL MCV 89.4 78.2 - 97.9 fL 03/03/2024 8:58 PM CDT DTL RBC Distrib Width 12.9 12.2 - 16.1 % 03/03/2024 8:58 PM CDT DTL Platelet Count 152(L) 157 - 371 x10(9)/L 03/03/2024 8:58 PM CDT DTL Leukocytes 7.8 3.4 - 9.6 x10(9)/L 03/03/2024 8:58 PM CDT DTL Blood (Blood, Venous) 03/03/2024 8:16 PM CDT 03/03/2024 8:52 PM CDT Juan Mcpherson Jr., CYRIL, C.N.P., M.S.N . LAB BLOOD ADD-ON [address] [address], [facility] [place] [address] * Basic Metabolic Panel (03/03/2024 8:16 PM CDT) Potassium, S CANCELED 3.6 - 5.2 mmol/L 03/07/2024 9:27 AM CDT DTL Comment: REVISED RESULTS ----PREVIOUSLY REPORTED ---- 4.2, Flagged as: Normal (Reported 03/03/2024 21:29) Sodium, S CANCELED 135 - 145 mmol/L 03/07/2024 9:27 AM CDT DTL Comment: REVISED RESULTS ----PREVIOUSLY REPORTED ---- 134, Flagged as: Abnormal_Low (Reported 03/03/2024 21:29) Chloride, S CANCELED 98 - 107 mmol/L 03/07/2024 9:27 AM CDT DTL Comment: REVISED RESULTS ----PREVIOUSLY REPORTED ---- 96, Flagged as: Abnormal_Low (Reported 03/03/2024 21:29) Bicarbonate, S CANCELED 22 - 29 mmol/L 03/07/2024 9:27 AM CDT DTL Comment: REVISED RESULTS ----PREVIOUSLY REPORTED ---- 27, Flagged as: Normal (Reported 03/03/2024 21:29) Anion Gap CANCELED 7 - 15 03/07/2024 9:27 AM CDT DTL Comment: REVISED RESULTS ----PREVIOUSLY REPORTED ---- 11, Flagged as: Normal (Reported 03/03/2024 21:29) BUN (Blood Urea Nitrogen), S CANCELED 6 - 21 mg/dL 03/07/2024 9:27 AM CDT DTL Comment: REVISED RESULTS ----PREVIOUSLY REPORTED ---- 21, Flagged as: Normal (Reported 03/03/2024 21:29) Creatinine CANCELED 0.59 - 1.04 mg/dL 03/07/2024 9:27 AM CDT DTL Comment: REVISED RESULTS ----PREVIOUSLY REPORTED ---- 1.17, Flagged as: Abnormal_High (Reported 03/03/2024 21:29) Estimated GFR (eGFR) CANCELED >=60 mL/min/BSA 03/07/2024 9:27 AM CDT DTL Comment: REVISED RESULTS ----PREVIOUSLY REPORTED ---- 45Estimated GFR calculated using the 2020 CKD_EPI creatinine equation., Flagged as: Abnormal_Low (Reported 03/03/2024 21:29) Calcium, Total, S CANCELED 8.8 - 10.2 mg/dL 03/07/2024 9:27 AM CDT DTL Comment: REVISED RESULTS ----PREVIOUSLY REPORTED ---- 9.7, Flagged as: Normal (Reported 03/03/2024 21:29) Glucose, S CANCELED 70 - 140 mg/dL 03/07/2024 9:27 AM CDT DTL Comment: REVISED RESULTS ----PREVIOUSLY REPORTED ---- 158, Flagged as: Abnormal_High (Reported 03/03/2024 21:29) Blood (Blood, Venous) 03/03/2024 8:16 PM CDT 03/03/2024 9:13 PM CDT Narrative [facility] - 03/07/2024 9:27 AM CDT Basic Metabolic Panel, S was cancelled on 03/07/2024 at 09:27; Duplicate test request. !CNCL! Juan Mcpherson Jr., CYRIL, C.N.P., M.S.N . LAB BLOOD ADD-ON [facility] [address] [place] [address], [facility] DTL [facility] [address] [place] [address] * DX Pelvis 3+ Views (03/03/2024 5:02 [...] P.A.-C. IMG DIAGN OSTIC IMAGING PROCEDURES * (ABNORMAL) CBC without Differential (03/03/2024 3:10 PM CDT) Hemoglobin 11.2(L) 11.6 - 15.0 g/dL 03/03/2024 3:44 PM CDT DTL Hematocrit 32.3(L) 35.5 - 44.9 % 03/03/2024 3:44 PM CDT DTL Erythrocytes 3.61(L) 3.92 - 5.13 x10(12)/L 03/03/2024 3:44 PM CDT DTL MCV 89.5 78.2 - 97.9 fL 03/03/2024 3:44 PM CDT DTL RBC Distrib Width 13.0 12.2 - 16.1 % 03/03/2024 3:44 PM CDT DTL Platelet Count 150(L) 157 - 371 x10(9)/L 03/03/2024 3:44 PM CDT DTL Leukocytes 6.9 3.4 - 9.6 x10(9)/L 03/03/2024 3:44 PM CDT DTL Blood (Blood, Venous) 03/03/2024 3:10 PM CDT 03/03/2024 3:37 PM CDT Chato Walsh P.A.-C. LAB BLOOD ADD- ON [facility] [address] [place] [address], [facility] [address] [place] [address] * IR Pelvic Artery Embolization (03/03/2024 7:51 [...] created and stored. Using Seldinger technique, a 5-Tajik vascular sheath was placed. A Flush catheter [...] was 83 minutes. Maggi Escalante M.D., M.S. [facility] IR PRO CEDURES * (ABNORMAL) CBC with Differential, Blood (03/03/2024 5:20 AM CDT) Hemoglobin 11.9 11.6 - 15.0 g/dL 03/03/2024 5:25 AM CDT STMA Hematocrit 35.2(L) 35.5 - 44.9 % 03/03/2024 5:25 AM CDT STMA Erythrocytes 3.90(L) 3.92 - 5.13 x10(12)/L 03/03/2024 5:25 AM CDT STMA MCV 90.3 78.2 - 97.9 fL 03/03/2024 5:25 AM CDT STMA RBC Distrib Width 13.0 12.2 - 16.1 % 03/03/2024 5:25 AM CDT STMA Platelet Count 134(L) 157 - 371 x10(9)/L 03/03/2024 5:25 AM CDT STMA Leukocytes 8.1 3.4 - 9.6 x10(9)/L 03/03/2024 5:25 AM CDT STMA Neutrophils 6.32 1.56 - 6.45 x10(9)/L 03/03/2024 5:25 AM CDT DHPM Lymphocytes 0.96 0.95 - 3.07 x10(9)/L 03/03/2024 5:25 AM CDT STMA Monocytes 0.77 0.26 - 0.81 x10(9)/L 03/03/2024 5:25 AM CDT STMA Eosinophils 0.06 0.03 - 0.48 x10(9)/L 03/03/2024 5:25 AM CDT STMA Basophils <0.03 0.01 - 0.08 x10(9)/L 03/03/2024 5:25 AM CDT STMA Blood (Blood, Venous) 03/03/2024 5:20 AM CDT 03/03/2024 5:23 AM CDT Maggi Escalante M.D., M.S. LAB BLOOD ADD-ON [facility] [address] [place] [address], [facility] STMA [facility] [address] [place] [address] [facility] [address] [place] [address] * (ABNORMAL) Venous Blood Gas and Electrolytes CG8+, POCT (03/03/2024 3:12 AM CDT) Pathologist [facility] Sample Site, POCT Venstick 03/03/2024 3:28 AM [...] M.D. LAB POCT ORDERABLES - DEVICE POC [facility] [address] [place] [address], [facility] PCLX [facility] [address] [place] [address] PCSM [facility] POC [address] [place] [address] * CT Thoracic Spine by Reconstruction (03/03/2024 [...] fracture of the right anterior sacral ala (/). The SI joints are [...] were discussed with See Mcfarland M.D. (Pager [phone]) on 03/03/2024 2:19 AM Procedure Note Alfonso [...] were discussed with See Mcfarland M.D. (Pager [phone]) on03/03/2024 2:19 AM IMPRESSION: 1. Acute right pelvic fractures with adjacent hematoma and evidence ofactive bleeding into the space of Retzius. 2. Intramuscular hematomas involving the right obturator externus andinternus without evidence of active extravasation. 3. 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 Cam Luna M.D. Ras CT PROCEDURES * CT Chest with IV [...] were discussed with See Mcfarland M.D. (Pager [phone]) on 03/03/2024 2:19 AM Procedure Note Alfonso [...] were discussed with See Mcfarland M.D. (Pager [phone]) on03/03/2024 2:19 AM IMPRESSION: 1. Acute right pelvic fractures with adjacent hematoma and evidence ofactive bleeding into the space of Retzius. 2. Intramuscular hematomas involving the right obturator externus andinternus without evidence of active extravasation. 3. 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 Cam Luna M.D. Ras CT PROCEDURES * CT Cervical Spine without [...] of the cervical spine. Cam Luna M.D. Ras CT PROCEDURES * CT Head without IV [...] intracranial abnormality or fracture. Cam Luna M.D. [facility] [place] PROCEDURES * DX Elbow Right 3+ [...] maintained. No joint effusion. Cam Luna M.D. [facility] NG PROCEDURES * DX Hip [...] CONTRAST COMPARISON: CT abdomen pelvis 04/14/2018. Cam LLANES CT PROCEDURES * CT Lumbar Spine without [...] Cam Luna M.D. IMG CT PROCEDURES * (ABNORMAL) Basic Metabolic Panel (03/02/2024 11:55 PM CDT) Potassium, P 4.6 3.6 - 5.2 mmol/L 03/03/2024 12:46 AM CDT DTL Sodium, P 135 135 - 145 mmol/L 03/03/2024 12:46 AM CDT DTL Chloride, P 98 98 - 107 mmol/L 03/03/2024 12:46 AM CDT DTL Bicarbonate, P 26 22 - 29 mmol/L 03/03/2024 12:46 AM CDT DTL Anion Gap, P 11 7 - 15 03/03/2024 12:46 AM CDT DTL BUN (Blood Urea Nitrogen), P 25(H) 6 - 21 mg/dL 03/03/2024 12:46 AM CDT DTL Creatinine 1.31(H) 0.59 - 1.04 mg/dL 03/03/2024 12:46 AM CDT DTL Estimated GFR (eGFR) 39(L) >=60 mL/min/BSA 03/03/2024 12:46 AM CDT DTL Comment: Estimated GFR calculated using the 2020 CKD_EPI creatinine equation. Calcium, Total, P 9.8 8.8 - 10.2 mg/dL 03/03/2024 12:46 AM CDT DTL Glucose, P 127 70 - 140 mg/dL 03/03/2024 12:46 AM CDT DTL Blood (Blood, Venous) 03/02/2024 11:55 PM CDT 03/03/2024 12:05 AM CDT Cam Luna M.D. LAB BLOOD ADD-ON [facility] [address] [place] [address], [facility] DTL [facility] [address] [place] [address] * (ABNORMAL) CBC with Differential, Blood (03/02/2024 11:55 PM CDT) Hemoglobin 11.6 11.6 - 15.0 g/dL 03/03/2024 12:05 AM CDT STMA Hematocrit 34.2(L) 35.5 - 44.9 % 03/03/2024 12:05 AM CDT STMA Erythrocytes 3.80(L) 3.92 - 5.13 x10(12)/L 03/03/2024 12:05 AM CDT STMA MCV 90.0 78.2 - 97.9 fL 03/03/2024 12:05 AM CDT STMA RBC Distrib Width 12.9 12.2 - 16.1 % 03/03/2024 12:05 AM CDT STMA Platelet Count 151(L) 157 - 371 x10(9)/L 03/03/2024 12:05 AM CDT STMA Leukocytes 7.7 3.4 - 9.6 x10(9)/L 03/03/2024 12:05 AM CDT STMA Neutrophils 6.21 1.56 - 6.45 x10(9)/L 03/03/2024 12:05 AM CDT DHPM Lymphocytes 0.91(L) 0.95 - 3.07 x10(9)/L 03/03/2024 12:05 AM CDT STMA Monocytes 0.50 0.26 - 0.81 x10(9)/L 03/03/2024 12:05 AM CDT STMA Eosinophils 0.07 0.03 - 0.48 x10(9)/L 03/03/2024 12:05 AM CDT STMA Basophils <0.03 0.01 - 0.08 x10(9)/L 03/03/2024 12:05 AM CDT STMA Blood (Blood, Venous) 03/02/2024 11:55 PM CDT 03/02/2024 11:59 PM CDT Cam Luna M.D. LAB BLOOD ADD-ON [facility] [address] [place] [address], [facility] STMA [facility] [address] [place] [address] [facility] [address] [place] [address] * Type and Screen (with Reflex Antibody ID) (03/02/2024 11:50 PM CDT) [facility] ABORh A Pos Not applicable 03/03/2024 3:15 AM CDT STRM Antibody Screen Negative Negative 03/03/2024 3:15 AM CDT STRM Type & Screen Expiration 03/05/2024 23:59 03/03/2024 3:15 AM CDT STRM Testing Location Atilio DEFAULT 03/03/2024 2:35 AM CDT STRM Blood (Blood, Venous) 03/02/2024 11:50 PM CDT 03/03/2024 2:35 AM CDT Adebayo Shepard M.D., M.P.H. LAB BLOOD BANK TEST ORDERABLES Performing Organization Address [facility] Co de Phone Number [facility] [address] [place] [address], [facility] [address] [place] [address] * ECG 12 Lead (03/02/2024 11:45 PM CDT) [facility] Ventricular Rate ECG/Min 72 BPM MUSE ID Interval 162 ms MUSE QRSD Interval 94 ms MUSE QT Interval 404 ms MUSE QTC Interval 442 ms MUSE P [place] 47 degrees MUSE R [place] 38 degrees MUSE T Wave [place] 45 degrees MUSE 03/02/2024 11:4 5 PM CDT 03/02/2024 11:52 PM CDT Impressions MUSE - 03/02/2024 11:52 PM CDT Normal sinus rhythm Nonspecific ST abnormality When compared with ECG of 07-Apr-2016 11:09, No significant change was found Reviewed by LETICIA oRjas Narrative Procedure Note Douglas Julian M.D. - 03/02/2024 IMPRESSION: Normal sinus rhythm Nonspecific ST abnormality When compared with ECG of 07-Apr-2016 11:09, No significant change was found Reviewed by LETICIA Rojas Cam Luna M.D. ECG ORDERABLES MUSE NA documented in this encounter Visit Diagnoses Diagnosis History Of Falling- Primary Fracture Pelvis Other Parts Closed Initial (HCC) Difficulty Walking Orthopedic Cause [R26.2] Decline Functional Status [R53.81] History Of Falling Fracture Pelvis Other Parts Closed Initial (HCC) Arthritis Rheumatoid (HCC) Osteoporosis Vertigo Benign Paroxysmal Positional Bilateral Vertigo Mononeuropathy Lower Limb Right Neuropathy Peripheral Hemorrhage Lesion Pancreas Failure Renal Acute (Acute Kidney Injury) (HCC) Fracture Pelvis Multiple With Stable Disruption Of Pelvic Ring Open Initial (HCC)- Primary documented in this encounter Admitting Diagnoses Diagnosis Fracture Pelvis Other Parts Closed Initial (HCC) documented in this encounter Administered Medications Inactive Administered Medications - up to 3 most recent administrations Medication Order MAR Action Action Date Dose Rate Site acetaminophen tablet 650 mg (TylenoL) 650 mg, oral, Every 6 hours PRN, mild pain or score 1-3 of 10, Starting on Tania 03/03/24 at 1219, If multiple analgesics ordered for the same pain score sequence of administration: acetaminophen, ibuprofen, tramadol, oxycodone Given 03/04/2024 12:55 AM CDT 650 mg acetaminophen tablet 650 mg (TylenoL) 650 mg, oral, 4 times daily, First dose (after last modification) on Thu03/04/24 at 0800, If multiple analgesics ordered for the same pain score sequence of administration: acetaminophen, ibuprofen, tramadol, oxycodone Given 03/09/2024 12:24 PM CDT 650 mg Given 03/09/2024 7:04 AM CDT 650 mg Given 03/08/2024 8:26 PM CDT 650 mg bacitracin 500 unit/gram ointment packet 1 packet 1 packet (1 Application), topical, 2 times daily, First dose on Thu03/04/24 at 0900, Please apply to right elbow cut Given 03/04/2024 8:35 PM CDT 1 packet Given 03/04/2024 8:25 AM CDT 1 packet bisacodyL suppository 10 mg (Dulcolax) 10 mg, rectal, Bedtime PRN, constipation, Starting on Thu03/04/24 at 1341 calcium carbonate-vitamin D3 1,250 mg (500 mg calcium)-5 mcg (200 Unit) per tablet 1 tablet 1 tablet, oral, Daily with morning meal, First dose on Thu03/04/24 at 0800, calcium carbonate/vitamin-D 1250 mg(500 mg elemental)/200 units was interchanged for calcium carbonate/ calcium carbonate/vitamin D 600 mg/400 units Take with food. Given 03/09/2024 7:04 AM CDT 1 tablet Given 03/08/2024 8:19 AM CDT 1 tablet Given 03/07/2024 8:23 AM CDT 1 tablet cycloSPORINE 0.05 % ophthalmic emulsion 1 drop (Restasis) 1 drop, both eyes, 2 times daily, First dose on Thu03/03/24 at 2100 Given 03/09/2024 8:51 AM CDT 1 drop Given 03/08/2024 8:26 PM CDT 1 drop Given 03/08/2024 8:20 AM CDT 1 drop diclofenac sodium 1 % gel 4 g (Voltaren) 4 g, topical, 4 times daily, First dose on Thu03/04/24 at 0800, Do not exceed 32 g per day, over all affected joints, especially right hip area Use dosing card to measure product. 2 g = 2.25 inches, 4 gm = 4.5 inches. Rinse dosing card after use and save for each administration. Given 03/09/2024 12:25 PM CDT 4 g Given 03/09/2024 7:06 AM CDT 4 g Given 03/08/2024 8:30 PM CDT 4 g docusate sodium 283 mg/5 mL enema 1 enema (Enemeez) 1 enema, rectal, Daily PRN, constipation, Starting on Thu03/06/24 at 0916 enoxaparin injection 30 mg (Lovenox) 30 mg, subcutaneous, 2 times daily, First dose on Thu03/03/24 at 2100 Given 03/09/2024 8:51 AM CDT 30 mg Ri ght Lower Abdomen Given 03/08/2024 8:26 PM CDT 30 mg Ri ght Upper Hip Given 03/08/2024 8:19 AM CDT 30 mg Le ft Outer Thigh fentaNYL (Sublimaze) 50 mcg/mL injection - ADS Override Pull Starting on Thu03/02/24 at 2355, For 1 dose, Created by cabinet override fentaNYL injection 25 mcg (Sublimaze) 25 mcg, intravenous, As needed, severe pain or score 7-10 of 10, Starting on Thu03/02/24 at 2348 Given 03/03/2024 4:38 AM CDT 25 mcg Given 03/03/2024 1:17 AM CDT 25 mcg Given 03/02/2024 11:58 PM CDT 25 mcg fentaNYL injection 25 mcg (Sublimaze) 25 mcg, intravenous, Every 2 min PRN, sedation, Administer over 1 minute immediately prior to the procedure. May repeat every 2 minutes to a maximum of 200 mcg, until pain score of 3 or less, or until the patient meets the pain comfort goal, or RASS 0 to -2. Do not give if respiratory rate is less than 8 breaths/minute., Starting on Tania 03/03/24 at 0619, For 3 hours, Intraprocedure (RAD), Subsequent doses Given 03/03/2024 6:57 AM CDT 25 mc g Given 03/03/2024 6:46 AM CDT 25 mcg Given 03/03/2024 6:33 AM CDT 25 mcg fentaNYL injection 25 mcg (Sublimaze) 25 mcg, intravenous, Every 1 hour PRN, moderate pain or score 4-6 of 10, Starting on Tania 03/03/24 at 0822 Given 03/03/2024 9:57 PM CDT 25 mcg Given 03/03/2024 4:20 PM CDT 25 mcg Given 03/03/2024 12:21 PM CDT 25 mcg hydroCHLOROthiazide tablet 12.5 mg 12.5 mg, oral, Daily, First dose on Thu03/04/24 at 0900, On hold since Thu03/06/2024 at 1222 until manually unheld Given 03/06/2024 9:15 AM CDT 12.5 mg iohexoL 300 mg iodine/mL solution (Omnipaque) As needed, Starting on Thu03/03/24 at 0750, Intra-Op Given 03/03/2024 7:50 AM CDT 120 mL iohexoL 350 mg iodine/mL solution (Omnipaque) As needed, Starting on Tania 03/03/24 at 0750, Intra-Op Given 03/03/2024 7:50 AM CDT 20 mL iopromide 300 mg iodine/mL injection 1-200 mL (Ultravist) 1-200 mL, intravenous, Once in imaging, contrast, Starting on Tania 03/03/24 at 0152, For 1 dose, Imaging Protocol Orders, Dose per Radiant Medication Guidelines Given 03/03/2024 12:32 PM CDT 140 mL Lactated Ringer's bolus 1,000 mL 1,000 mL, intravenous, at 333 mL/hr, Administer over 3 Hours, Once, On [place] 03/06/24 at 1245, For 1 dose New Bag 03/06/2024 12:38 PM CDT 1,000 mL 333 mL/hr Lactated Ringer's 20 mL/hr, intravenous, Once as needed, to keep vein open, Starting on Tania 03/03/24 at 0619, For 1 dose, Intraprocedure (RAD) New Bag 03/03/2024 6:22 AM CDT 20 mL/hr 20 mL/hr lactulose solution 10 g 10 g, oral, 3 times daily PRN, constipation, Starting on [place] 03/06/24 at 0915 Given 03/08/2024 8:20 AM CDT 10 g lidocaine 5 % 1 patch (Lidoderm) 1 patch, transdermal, Administer over 12 Hours, Every 24 hours, First dose on [facility] 03/03/24 at 1245, (12 hours on-12 hours off) To intact skin Medication Applied 03/09/2024 12:25 PM CDT 1 patch Lower Back Medication Applied 03/08/2024 1:23 PM CDT 1 patch Lower Back Medication Applied 03/07/2024 12:27 PM CDT 1 patch Back lidocaine-sodium bicarbonate (buffered) 0.9%-0.84% injection infiltration, As needed, Starting on Tania 03/03/24 at 0750, Intra-Op Given 03/03/2024 7:50 AM CDT 6 mL magnesium enema 1 enema (Disimpaction #2) 1 enema, rectal, Once, On 03/05/24 at 2145, For 1 dose Given 03/05/2024 10:57 PM CDT 1 enema melatonin tablet 6 mg 6 mg, oral, Bedtime PRN, sleep, Starting on Thu03/04/24 at 2118 Given 03/05/2024 8:06 PM CDT 6 mg midazolam (PF) injection 0.25 mg (Versed) 0.25 mg, intravenous, Every 2 min PRN, sedation, RASS -2, Starting on Tania 03/03/24 at 0619, For 3 hours, Intraprocedure (RAD), May repeat every 2 minutes to a maximum of 5 mg. Do not give if respiratory rate is less than 8 breaths/minute. Given 03/03/2024 7:30 AM CDT 0.25 mg Given 03/03/2024 7:20 AM CDT 0.25 mg midazolam (PF) injection 0.5 mg (Versed) 0.5 mg, intravenous, Every 2 min PRN, sedation, RASS -1, Starting on Tania 03/03/24 at 0619, For 3 hours, Intraprocedure (RAD), May repeat every 2 minutes for a maximum of 5 mg. Do not give if respiratory rate is less than 8 breaths/minute. Given 03/03/2024 6:56 AM CDT 0.5 mg Given 03/03/2024 6:54 AM CDT 0.5 mg Given 03/03/2024 6:39 AM CDT 0.5 mg midazolam (PF) injection 1 mg (Versed) 1 mg, intravenous, Every 2 min PRN, sedation, RASS 0, Starting on Tania 03/03/24 at 0619, For 3 hours, Intraprocedure (RAD), May repeat every 2 minutes for a maximum of 5 mg. Do not give if respiratory rate is less than 8 breaths/minute. Given 03/03/2024 6 :19 AM CDT 1 mg ondansetron (PF) injection 4 mg (Zofran) 4 mg, intravenous, Every 6 hours PRN, nausea, vomiting, Starting on 03/05/24 at 1916 Given 03/05/2024 8:06 PM CDT 4 mg oxyCODONE IR tablet 2.5 mg (Roxicodone) 2.5 mg, oral, Every 4 hours PRN, moderate pain or score 4-6 of 10, for breakthrough pain, Starting on Tania 03/03/24 at 1220, Pain unrelieved by other oral analgesics. oxyCODONE IR tablet 5 mg (Roxicodone) 5 mg, oral, Every 4 hours PRN, severe pain or score 7-10 of 10, for breakthrough pain, Starting on Tania 03/03/24 at 1220, Pain unrelieved by other oral analgesics. Given 03/09/2024 2:04 PM CDT 5 mg Given 03/08/2024 11:34 PM CDT 5 mg Given 03/08/2024 10:12 AM CDT [address] tablet 40 mg (Protonix) 40 mg, oral, Daily before morning meal, First dose on Thu03/04/24 at 0700, pantoprazole 40 mg oral daily was interchanged for omeprazole 20 or 40 mg oral daily Swallow whole. Do NOT crush, chew, or split tablet. Given 03/09/2024 7:04 AM CDT 40 mg Given 03/08/2024 6:48 AM CDT 40 mg Given 03/07/2024 6:14 AM CDT 40 mg polyethylene glycol powder packet 17 g (Miralax) 17 g, oral, Daily, First dose on Thu03/04/24 at 0900, Dissolve in 240 mLs (8 ounces) of water prior to giving. Avoid mixing with starch-based thickened liquids. Given 03/09/2024 8:51 AM CDT 17 g Given 03/08/2024 8:21 AM CDT 17 g Given 03/07/2024 8:24 AM CDT 17 g sennosides tablet 17.2 mg (Senokot) 17.2 mg, oral, Daily, First dose on Thu03/04/24 at 0900 Given 03/05/2024 8:13 AM CDT 17.2 mg Given 03/04/2024 8:26 AM CDT 17.2 mg sennosides-docusate sodium 8.6-50 mg per tablet 1 tablet (Senokot-S) 1 tablet, oral, 2 times daily, First dose (after last modification) on Thu03/07/24 at 0900 Given 03/09/2024 8:52 AM CDT 1 tablet Given 03/08/2024 8:26 PM CDT 1 tablet Given 03/08/2024 8:19 AM CDT 1 tablet sennosides-docusate sodium 8.6-50 mg per tablet 2 tablet (Senokot-S) 2 tablet, oral, 2 times daily, First dose on 03/06/24 at 0930 Given 03/06/2024 10:59 PM CDT 2 tablets Given 03/06/2024 12:39 PM CDT 2 tablets simethicone chewable tablet 80 mg 80 mg, oral, 4 times daily PRN, flatulence, Starting on 03/07/24 at 2006 Given 03/08/2024 11:30 PM CDT 80 mg Given 03/08/2024 8:34 PM CDT 80 mg Given 03/08/2024 6:55 AM CDT 80 mg sodium chloride (PF) 0.9 % injection 1-100 mL 1-100 mL, intravenous, Once, On Tania 03/03/24 at 0153, For 1 dose, Imaging Protocol Orders, Dose per Radiant Medication Guidelines Given 03/03/2024 2:10 AM CDT 50 mL documented in this encounter Active and Recently Administered Medications Times are shown in CDT. Scheduled Medication Order 03/07/2024 03/08/2024 03/09/2024 acetaminophen tablet 650 mg (TylenoL) 650 mg, oral, 4 times daily, First dose (after last modification) on Thu03/04/24 at 0800, If multiple analgesics ordered for the same pain score sequence of administration: acetaminophen, ibuprofen, tramadol, oxycodone 0834 (Given - Provider: Theresa Xiong R.N.)1227 (Given - Provider: Theresa Xiong R.N.)1722 (Given - Provider: Theresa Xiong R.N.)2015 (Given - Provider: Jessica Merino R.N.) 0819 (Given - Provider: Felipa Abdullahi R.N.)1323 (Given - Provider: Felipa Abdullahi R.N.)1700 (Due)2025 (Given - Provider: Grayson Adams.N.) 0704 (Given - Provider: Jessica Merino R.N.)1224 (Given - Provider: Felipa Abdullahi R.N.) calcium carbonate-vitamin D3 1,250 mg (500 mg calcium)-5 mcg (200 Unit) per tablet 1 tablet 1 tablet, oral, Daily with morning meal, First dose on Thu03/04/24 at 0800, calcium carbonate/vitamin-D 1250 mg(500 mg elemental)/200 units was interchanged for calcium carbonate/ calcium carbonate/vitamin D 600 mg/400 units Take with food. 0823 (Given - Provider: Theresa Xiong R.N.) 0819 (Given - Provider: Felipa Abdullahi R.N.) 0704 (Given - Provider: Dorene AdamsNDann) cycloSPORINE 0.05 % ophthalmic emulsion 1 drop (Restasis) 1 drop, both eyes, 2 times daily, First dose on Thu03/03/24 at 2100 0825 (Given - Provider: Theresa Xiong R.N.)2014 (Given - Provider: Dorene AdamsN.) 0820 (Given - Provider: Felipa Abdullahi R.N.)202 (Given - Provider: Dorene AdamsN.) 0851 (Given - Provider: Felipa Abdullahi R.N.) diclofenac sodium 1 % gel 4 g (Voltaren) 4 g, topical, 4 times daily, First dose on Thu03/04/24 at 0800, Do not exceed 32 g per day, over all affected joints, especially right hip area Use dosing card to measure product. 2 g = 2.25 inches, 4 gm = 4.5 inches. Rinse dosing card after use and save for each administration. 0830 (Given - Provider: Theresa Xiong R.N.)1227 (Given - Provider: Theresa Xiong R.N.)1723 (Given - Provider: Theresa Xiong R.N.)2020 (Given - Provider: Dorene AdamsN.) 0821 (Given - Provider: Felipa Abdullahi R.N.)1324 (Given - Provider: Felipa Abdullahi R.N.)1700 (Due)2030 (Given - Provider: Jessica Merino R.N.) 0706 (Given - Provider: Jessica Merino R.N.)1225 (Given - Provider: Felipa Abdullahi R.N.) dorzolamide-timoloL 22.3-6.8 mg/mL ophthalmic solution 1 drop (Cosopt) 1 drop, right eye, Daily, First dose on Thu03/04/24 at 0900 0825 (Not Given - Provider: Theresa Xiong R.N. - Reason: Patient/family refused) 0820 (Not Given - Provider: Felipa Abdullahi R.N. - Reason: Patient/family refused) 0846 (Not Given - Provider: Felipa Abdullahi R.N. - Reason: Patient/family refused) enoxaparin injection 30 mg (Lovenox) 30 mg, subcutaneous, 2 times daily, First dose on Thu03/03/24 at 2100 0827 (Given - Provider: Theresa Xiong R.N.)2014 (Given - Provider: Jessica Merino R.N.) 0819 (Given - Provider: Felipa Abdullahi R.N.)2025 (Given - Provider: Jessica Merino R.N.) 0851 (Given - Provider: Felipa Abdullahi R.N.) hydroCHLOROthiazide tablet 12.5 mg 12.5 mg, oral, Daily, First dose on Thu03/04/24 at 0900, On hold since Thu03/06/2024 at 1222 until manually unheld 0900 (Not Given - Provider: Theresa Xiong R.N. - Reason: See Provider Order) 0900 (Not Given - Provider: Felipa Abdullahi R.N. - Reason: See Provider Order - Comment: HCP Held) 0900 (Not Given - Provider: Felipa Abdullahi R.N. - Reason: See Provider Order - Comment: HCP Held)1656 (Unheld by provider - Provider: Discharge Provider, Automatic) lidocaine 5 % 1 patch (Lidoderm) 1 patch, transdermal, Administer over 12 Hours, Every 24 hours, First dose on Thu03/03/24 at 1245, (12 hours on-12 hours off) To intact skin 0032 (Medication Removed - Provider: Miryam Holloway R.N.)1227 (Medication Applied - Provider: Theresa Xiong R.N.)2336 (Medication Removed - Provider: Dorene AdamsNDann) 1323 (Medication Applied - Provider: Felipa Abdullahi R.N.) 0359 (Medication Removed - Provider: Jessica Merino R.N.)1225 (Medication Applied - Provider: Felipa Abdullahi R.N.)1456 (Due: Medication Removed - Provider: Discharge Provider, Automatic - Comment: Time automatically adjusted from order being discontinued) pantoprazole DR tablet 40 mg (Protonix) 40 mg, oral, Daily before morning meal, First dose on Thu03/04/24 at 0700, pantoprazole 40 mg oral daily was interchanged for omeprazole 20 or 40 mg oral daily Swallow whole. Do NOT crush, chew, or split tablet. 0614 (Given - Provider: Miryam Holloway R.N.) 0648 (Given - Provider: Jessica Merino R.N.) 0704 (Given - Provider: Jessica Merino R.N.) polyethylene glycol powder packet 17 g (Miralax) 17 g, oral, Daily, First dose on Thu03/04/24 at 0900, Dissolve in 240 mLs (8 ounces) of water prior to giving. Avoid mixing with starch-based thickened liquids. 0824 (Given - Provider: Theresa Xiong R.N.) 0821 (Given - Provider: Felipa Abdullahi R.N.) 0851 (Given - Provider: Felipa Abdullahi R.N.) sennosides-docusate sodium 8.6-50 mg per tablet 1 tablet (Senokot-S) 1 tablet, oral, 2 times daily, First dose (after last modification) on Thu03/07/24 at 0900 0902 (Given - Provider: Theresa Xiong R.N.)2020 (Not Given - Provider: Jessica T Butzer-Goodwin, R.N. - Reason: Patient/family refused) 0819 (Given - Provider: Felipa Abdullahi R.N.)2025 (Given - Provider: Jessica Merino R.N.) 0852 (Given - Provider: Felipa Abdullahi R.N.) PRN Medication Order 03/07/2024 03/08/2024 03/09/2024 bisacodyL suppository 10 mg (Dulcolax) 10 mg, rectal, Bedtime PRN, constipation, Starting on 03/04/24 at 1341 docusate sodium 283 mg/5 mL enema 1 enema (Enemeez) 1 enema, rectal, Daily PRN, constipation, Starting on 03/06/24 at 0916 fentaNYL injection 25 mcg (Sublimaze) 25 mcg, intravenous, Every 1 hour PRN, moderate pain or score 4-6 of 10, Starting on Tania 03/03/24 at 0822 lactulose solution 10 g 10 g, oral, 3 times daily PRN, constipation, Starting on 03/06/24 at 0915 0820 (Given - Provider: Felipa Abdullahi R.N.) melatonin tablet 6 mg 6 mg, oral, Bedtime PRN, sleep, Starting on 03/04/24 at 2118 ondansetron (PF) injection 4 mg (Zofran) 4 mg, intravenous, Every 6 hours PRN, nausea, vomiting, Starting on 03/05/24 at 1916 oxyCODONE IR tablet 2.5 mg (Roxicodone)(Linked Group 1) 2.5 mg, oral, Every 4 hours PRN, moderate pain or score 4-6 of 10, for breakthrough pain, Starting on Tania 03/03/24 at 1220, Pain unrelieved by other oral analgesics. 0823 (See Alternative - Provider: Theresa Xiong R.N.)2025 (See Alternative - Provider: Jessica Merino R.N.) 0655 (See Alternative - Provider: Jessica Merino R.N.)1012 (See Alternative - Provider: Felipa Abdullahi R.N.)2334 (See Alternative - Provider: Jessica Merino R.N.) 1404 (See Alternative - Provider: Felipa Abdullahi R.N.) oxyCODONE IR tablet 5 mg (Roxicodone)(Linked Group 1) 5 mg, oral, Every 4 hours PRN, severe pain or score 7-10 of 10, for breakthrough pain, Starting on Tania 03/03/24 at 1220, Pain unrelieved by other oral analgesics. 0823 (Given - Provider: Theresa Xiong R.N. - Comment: given before therapy)2025 (Given - Provider: Jessica Merino R.N.) 0655 (Given - Provider: Jessica Merino R.N.)101 (Given - Provider: Felipa Abdullahi R.N.)2334 (Given - Provider: Jessica Merino R.N.) 1404 (Given - Provider: Felipa Abdullahi R.N.) simethicone chewable tablet 80 mg 80 mg, oral, 4 times daily PRN, flatulence, Starting on Thu03/07/24 at 2006 2025 (Given - Provider: Jessica Merino R.N.) 0655 (Given - Provider: Dorene AdamsN.)2033 (Given - Provider: Jessica Merino RDannN.)2330 (Given - Provider: Jessica Merino R.N.) Linked Groups Order Group 1: oxyCODONE IR tablet 2.5 mg (Roxicodone)Jump to med 2.5 mg, oral, Every 4 hours PRN, moderate pain or score 4-6 of 10, for breakthrough pain, Starting on Tania 03/03/24 at 1220, Pain unrelieved by other oral analgesics. Or oxyCODONE IR tablet 5 mg (Roxicodone)Jump to med 5 mg, oral, Every 4 hours PRN, severe pain or score 7-10 of 10, for breakthrough pain, Starting on Tania 03/03/24 at 1220, Pain unrelieved by other oral analgesics. documented in this encounter Additional Health Concerns Assessment Noted Time PHQ-9 Depression Total Score: 0 11/02/19 14 2:53 PM [employer] documented as of this encounter Care Teams Solution Director Relationship Specialty Start Date End Date Elsewhere, Pcp PCP - General Family Medicine 01/31/21 documented as of this encounter
--- OUTSIDE RECORDS SUMMARY | 2024-04-04 10:26 | XMS_ITS | Encounter Summary ---
Author Organization [facility] Address [address] [place] [address] Care Team Providers Care Radio Electrician Name Role Phone Elsewhere, Pcp Primary Care Provider Unavailabl e Encounter Details Date Type Department Care Team (Late st Contact Info) Description 03/05/2024 8:10 AM CDT Ancillary Procedure Department of Nursing Social History Tobacco Use Types Packs/Day Years Used Date Smoking Tobacco: Never Smokeless Tobacco: Never Alcohol Use Standard Drinks/Week Comments Not Currently 0 (1 standard drink = 0.6 oz pur e alcohol) [facility] Utilities Answer Date Recorded In the past 12 months has [facility] [employer], gas, oil, or water [employer] threatened to shut off services in your [...] How often do you attend chur or baptism services? More than 4 times per year [...] and heating? Not hard at all 09/27/2022 [facility] [place] [facility] - Occupational Stress [...] your living situation today? I have a [facility] place to live 03/03/2024 Education Answer [...] Comprehensive Visit Department of Rehabilitation Services in [address] [phone] Rashaun Garcia, P.T. [address] [place] [phone] 04/05/2024 10:30 AM CDT Appointment Department of Radiology, [facility] in [address] [phone] Nenita Elkins MPAS, P.A.-C. [address] [place] [phone] 04/05/2024 11:00 AM CDT Comprehensive Visit Division of Endocrinology in [address] [phone] Nenita Elkins MPAS, P.A.-C. [address] [place] [phone] 04/05/2024 11:00 AM CDT Office Visit Department of Orthopedic Surgery in [place], [place] [address] [place] [phone] Nenita Elkins MPAS, P.A.-C. [address] [place] [phone] 04/07/2024 2:30 PM CDT Clinical Support Department of Rehabilitation Services in [address] [phone] Yobany Bateman APRN, Angy.N.Abelino., D.N.P. [address] [place] [phone] Rashaun Garcia, P.TDann [address] [place] [phone] 04/08/2024 10:15 AM CDT Comprehensive Visit Department of Rehabilitation Services in [address] [phone] Clinton De Anda, P.T. [address] [place] [phone] 04/11/2024 2:30 PM CDT Clinical Support Department of Rehabilitation Services in [address] [phone] Yobany Bateman APRN, Angy.N.Abelino., D.N.P. [address] [place] [phone] Rashaun Garcia, P.T. [address] [place] [phone] 04/14/2024 10:30 AM CDT Clinical Support Department of Rehabilitation Services in [address] [phone] Yobany Bateman APRN, Angy.N.P., D.N.P. [address] [place] [phone] Rashaun Garcia, P.TDann [address] [place] [phone] 04/18/2024 10:30 AM CDT Clinical Support Department of Rehabilitation Services in [address] [phone] Yobany Bateman APRN, Angy.N.P., D.N.P. [address] [place] [phone] Rashaun Garcia, P.Marleni [address] [place] [phone] 04/21/2024 10:30 AM CDT Clinical Support Department of Rehabilitation Services in [address] [phone] Yobany Bateman APRN, Angy.N.P., D.N.P. [address] [place] [phone] Rashaun Garcia, P.TDann [address] [place] [phone] documented as of this encounter Procedures Procedure Name Priority Date/Time Associated Diagnosis Comments NURSING IMAGE EXAM Routine 03/05/2024 8: 09 AM CDT documented in this encounter Results * Arm, Right-Nursing Image Exam (03/05/2024 8:09 AM CDT) 03/05/2024 8:06 AM CDT Narrative IIMS - 03/05/2024 8:09 AM CDT This order has been created [...] Total Score: 0 11/02/19 14 2:53 PM CHIP TUNER documented as of this encounter Care Teams Radio Electrician Relationship Specialty Start Date End Date Elsewhere, Pcp PCP - General Family Medicine 01/31/21 documented as of this encounter
== END 2024-04-04 10:22 | disposition home or self-care (01) ==
PROVIDERS: PCP Nurse Practitioner Family; Visit Provider Nurse Practitioner Family
DX: D64.9 Anemia, unspecified (principal); E87.1 Hypo-osmolality and hyponatremia; R53.83 Other fatigue; R74.8 Abnormal levels of other serum enzymes; I10 Essential (primary) hypertension
CPT/HCPCS: 80048; 85025

== ENCOUNTER 2024-04-28 14:43 | Outpatient (CLI) | payer MEDICARE, OTHER, SELFPAY ==
--- OUTSIDE RECORDS SUMMARY | 2024-04-29 11:24 | XMS_ITS | Continuity of Care Document ---
Author Name [facility] Organization [facility] Care Team Providers Care Supervisor Cytology Name Role Phone [facility] Unavailable Unavailable Medications Combined list of outpatient [...] EXELAN PHARMACE, 4 ea. BLIST PACK Active [id number] 3 2022 12 Pharmac y Data Transac tion Service Facilit y ALENDRONATE SODIUM (alendronat e sodium), 70 MG, TABLET, ORAL, [facility]., 4 ea. BLIST PACK Active [id number] 4 2023 12 Pharmac y Data Transac tion Service Facilit y ALENDRONATE SODIUM (alendronat e sodium), 70 MG, TABLET, ORAL, [facility] 4 ea. BLIST PACK Active [id number] 4 2023 12 Pharmac y Data Transac tion Service Facilit y CYCLOSPORIN E (cyclospori ne), 0.05 %, DROPERETTE, OPHTHALMIC, [employer] 30 ea. VIAL Active [id number] 3 2022 180 Pharmac y Data Transac tion Service Facilit y CYCLOSPORIN E (cyclospori ne), 0.05 %, DROPERETTE, OPHTHALMIC, [employer] 30 ea. VIAL Active [id number] 4 2023 180 Pharmac y Data Transac tion Service Facilit y FLUOROURACI L (FLUOROURAC IL), 5 %, CREAM(GM), TOPICAL, [employer], 40 g TUBE Cancele d [id number] : 2023 0 Pharmac y Data Transac tion Service Facilit y FLUOROURACI L (FLUOROURAC IL), 5 %, CREAM(GM), TOPICAL, [employer], 40 g TUBE Active [id number] 4 2023 40 Pharmac y Data Transac tion Service Facilit y FLUTICASONE PROPIONATE (FLUTICASON E PROPIONATE) , 50 MCG, SPRAY SUSP, NASAL, [employer] 16 g AER W/ADAP Cancele d [id number] : 2023 0 Pharmac y Data Transac tion Service Facilit y FLUTICASONE PROPIONATE (FLUTICASON E PROPIONATE) , 50 MCG, SPRAY SUSP, NASAL, [employer] 16 g AER W/ADAP Active [id number] 4 2023 16 Pharmac y Data Transac tion Service Facilit y FLUTICASONE PROPIONATE (FLUTICASON E PROPIONATE) , 50 MCG, SPRAY SUSP, NASAL, [employer] 16 g AER W/ADAP Active [id number] 2023 16 Pharmac y Data Transac tion Service Facilit y GABAPENTIN (gabapentin ), 100 MG, CAPSULE, ORAL, [employer] 1000 ea. BOTTLE Active [id number] 2023 90 Pharmac y Data Transac tion Service Facilit y HYDROCHLORO THIAZIDE (hydrochlor othiazide), 12.5 MG, TABLET, ORAL, [employer] 1000 ea. BOTTLE Active [id number] 2023 90 Pharmac y Data Transac tion Service Facilit y LOSARTAN POTASSIUM (losartan potassium), 25 MG, TABLET, ORAL, [employer]ARE PHARMACE, 1000 ea. BOTTLE Cancele d [id number] : 2023 0 Pharmac y Data Transac tion Service Facilit y LOSARTAN POTASSIUM (losartan potassium), 25 MG, TABLET, ORAL, [employer]LCARE PHARMACE, 1000 ea. BOTTLE Active [id number] 4 2023 90 Pharmac y Data Transac tion Service Facilit y OMEPRAZOLE (omeprazole ), 40 MG, CAPSULE DR, ORAL, [employer], 500 ea. BOTTLE Active [id number] 2023 90 Pharmac y Data Transac tion Service Facilit y OMEPRAZOLE (omeprazole ), 40 MG, CAPSULE DR, ORAL, [employer], 500 ea. BOTTLE Active [id number] 2023 90 Pharmac y Data Transac tion Service Facilit y OMEPRAZOLE (omeprazole ), 40 MG, CAPSULE DR, ORAL, [employer], 500 ea. BOTTLE Active [id number] 3 2022 90 Pharmac y Data Transac tion Service Facilit y OMEPRAZOLE (omeprazole ), 40 MG, CAPSULE DR, ORAL, [employer]ARM, 500 ea. BOTTLE Active [id number] 2023 90 Pharmac y Data Transac tion Service Facilit y PAXLOVID (EUA) (nirmatrelv ir/ritonavi r), 150-100 MG, TAB DS PK, ORAL, [facility] 20 ea. BLIST PACK Cancele d [id number] : 2023 0 Pharmac y Data Transac tion Service Facilit y PAXLOVID (EUA) (nirmatrelv ir/ritonavi r), 150-100 MG, TAB DS PK, ORAL, [facility] 20 ea. BLIST PACK Active [id number] 4 2023 20 Pharmac y Data Transac tion Service Facilit y SHINGRIX (varicella- zoster virus glycoprotei n E,rec/AS01B adjuvant/PF ), 50 MCG/0.5, KIT, INTRAMUSC, GLAXOSMITHK LINE, 1 ea. KIT Active [id number] 4 2023 1 Pharmac y Data Transac tion Service Facilit y Immunizations Combined list of available immunizations from the Department of Defense and Veterans Affairs facilities. Immunization Series Date Given Administered By Site Reaction Lot Number CVX Code Drug Territory Manager General Sales Status Comments Source zoster recombinant 2023 () Not Given zoster recombina nt DoD Social History Combined list of available smoking, tobacco, and other social history from Department of Defense and Veterans Affairs facilities. Social History Type Response Date Comment Sour e This section is an empty social history section. DoD
--- OUTSIDE RECORDS SUMMARY | 2024-04-29 11:24 | XMS_ITS | Clinical Summary ---
Author Organization [facility] Address [place], [place] [address] Care Team Providers Care Manager Zone Name Role Phone Clinic, [facility] Primary Care Pr ovider Allergies Active Allergy Reactions Criticality Noted Date [...] twice a day 60 3 10/28/2007 Active calcium carbonate-vitamin D3, 600 mg-400 unit, [...] eyes every 12 hours. 0 12/20/2013 Active alendronate (FOSAMAX) 70 mg tablet Take 70 mg by mouth once a week in the morning. 09/10/2023 Active colchicine 0.6 mg tablet Take 0.6 mg by mouth once daily if needed. 03/10/2024 Active diclofenac topical (VOLTAREN) 1 % gel Apply 4 g topically to affected area(s) four times daily. 03/08/2024 Active ferrous sulfate, 65 mg elemental, tablet Take 1 Tablet (325 mg) by mouth once daily with a meal. 03/10/2024 Active gabapentin (NEURONTIN) 100 mg capsule Take 100 mg by mouth once daily if needed. 03/10/2024 Active polyethylene glycoL (MIRALAX) 17 gram/scoop powder Mix 17 g in liquid then take by mouth once daily if needed. 03/10/2024 Active acetaminophen (TYLENOL EXTRA STRGTH) 500 mg tablet Take 2 Tablets (1,000 mg) by mouth three times daily. AND QD PRN. Max acetaminophen dose: 4000mg in 24 hrs. 03/15/2024 Active losartan (COZAAR) 25 mg tablet Take 25 mg by mouth once daily. Hold for SBP <100 11/02/2023 Active sennosides-docusate (SENOKOT S) (8.6-50 mg) tablet Take 1 Tablet by mouth 2 times daily if needed. 03/15/2024 Active meclizine (ANTIVERT) 25 mg tablet Take 25 mg by mouth once daily if needed for Vertigo. 03/22/2024 Active ondansetron (ZOFRAN ODT) [address] 4 mg on the tongue every 6 hours if needed for Nausea/Vomiting. 03/22/2024 Active oxyCODONE (ROXICODONE) 5 mg immediate release tabletIndications:Pa in Take 1 Tablet (5 mg) by mouth every 4 hours if needed for Pain. 10 Tablet 03/24/2024 Active lidocaine 4 % topical patch Apply 1 Patch on dry, clean, hairless skin every 12 hours if needed. 03/08/2024 4 enoxaparin (LOVENOX) 40 mg/0.4 mL injection Inject 40 mg subcutaneous once daily. 03/10/2024 4 Active Problems Problem Noted Date Diagnosed Date Hyponatremia 03/22/2024 Hypertension 03/22/2024 Fracture of other parts of p oscar, initial encounter for closed fracture 03/03/2024 Gastroesophageal reflux disease 03/03/2024 Neuropathy, peripheral 03/03/2024 Other specified diseases of pancreas 03/03/2024 Arthritis, rheumatoid 10/25/2010 Overview: Overview: Arthritis, rheumatoid* Encounters Date Type Department Care Team Description 03/25/2024 Orders Only [facility] Scanner 1 scan: (1-Ord) Lee GILBERT, MULTIPLE LABS, 03/25/2024 03/25/2024 Nurse Triage [address] [address] Maxine Demarco NP Abnormal Lab Results 03/22/2024 3:55 PM CDT - 03/24/2024 1:00 PM [place] [address] Nir Bishop MD McQuistan, Ian Mark, DO Hyponatremia (Primary Dx); Pain Discharge Disposition: Correction Facility 03/22/2024 10:00 AM CDT Longterm [address] [address] Kristina Cooper MD Transitional Care Visit (Follow up) 03/22/2024 Orders Only [facility] Scanner 1 scan: (1-Ord) Lee GILBERT, BASIC METABOLIC PANEL, 03/22/2024 03/22/2024 Orders Only [facility] Scanner 1 scan: (1-Ord) Lee GILBERT, CBC WITH PLATELETS, 03/22/2024 03/22/2024 Travel 03/22/2024 Orders Only [address] [address] Kristina Cooper MD <No scans attached> 03/22/2024 Nurse Triage [address] [address] Maxine Demarco INTERVENTIONAL PAIN PHYSICIAN Results 03/15/2024 8:45 AM CDT Longterm [address] [address] Kristina Cooper MD Transitional Care Visit (Initial ) 03/15/2024 Nurse Triage [facility] [address] [place] [phone] Maxine Demarco NP Abnormal Lab Results 03/14/[address] [address] Maxine Demarco NP Refill Request 03/10/2024 10:30 AM CDT Longterm [address] [address] Maxine Demarco NP Transitional Care Visit (Admit) [...] 65+ 05/15/2024 Medical Devices Implanted 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 Device Identifier Shelf Expiration Date Model / Serial / Lot Valve Barevelt 350mm [id number] [facility] - [id number] Implanted:Qty: 1 on 12/22/2011 at [facility] Right: Eye [employer] 06/13/2013 [id number] / [id number] / Cornea Glycerol Half - [id number] Implanted:Qty: 1 on 12/22/2011 at [facility] Right: Eye [facility] 09/19/2014 GLYCEROL# / [id number] / Procedures Procedure Name Priority Date/Time [...] 10:54 AM CDT Brock Harrison DO CHEMISTRY [facility] [address] [place] [address], [place] [phone] * PLATELET COUNT (03/24/2024 5:18 AM CDT) PLATELET COUNT 229 140 - 440 thou/cu mm 03/24/2024 5:35 AM CDT [facility] MPV 8.7 6.5 - 11.0 fL 03/24/2024 5:35 AM CDT [facility] Blood BLOOD SPECIMEN / Unknown Butterfly / Unknown 03/24/2024 5:18 AM CDT 03/24/2024 5:26 AM CDT Brock Harrison DO HEMATOLOGY Performing Organization Address City/[facility]/ZIP Co de Phone Number [facility] [address] [place] [address], [place] [phone] * POTASSIUM (03/23/2024 4:40 AM CDT) POTASSIUM 4.0 3.5 - 5.1 mmol/L 03/23/2024 5:05 AM CDT [facility] Blood BLOOD SPECIMEN / Unknown Butterfly / Unknown 03/23/2024 4:40 AM CDT 03/23/2024 4:43 AM CDT Brock Harrison DO CHEMISTRY [facility] [address] [place] [address], [place] [phone] * (ABNORMAL) CREATININE (03/23/2024 4:40 AM CDT) eGFR 80(L) >90 mL/min/1.7 3m2 03/23/2024 5:05 AM CDT [facility] Comment:As of 2021, eG FR is calculated by the CKD-EPI creatinine equation without race adjustment. ??eGFR can be influenced by muscle mass, exercise, and diet. ??The reported eGFR is an estimation only and is only applicable if the renal function is stable. CREATININE 0.73 0.50 - 0.90 mg/dL 03/23/2024 5:05 AM CDT [facility] Blood BLOOD SPECIMEN / Unknown Butterfly / Unknown 03/23/2024 4:40 AM CDT 03/23/2024 4:43 AM CDT Brock Harrison DO CHEMISTRY [facility] [address] [place] [address], * (ABNORMAL) HEMOGLOBIN (03/22/2024 6:38 PM CDT) Pathologist [facility] HEMOGLOBIN 10.0(L) 12.0 - 16.0 g/dL 03/22/2024 6:42 PM CDT [facility] MCV 91 80 - 100 fL 03/22/2024 6:42 PM CDT [facility] Blood BLOOD SPECIMEN / Unknown Butterfly / Unknown 03/22/2024 6:38 PM CDT 03/22/2024 6:40 PM CDT Brock Harrison DO HEMATOLOGY [facility] [address] [place] [address], [place] [phone] * (ABNORMAL) OSMOLALITY (03/22/2024 6:38 PM CDT) OSMOLALITY 268(L) 275 - 300 mOsmol/kg 03/23/2024 3:19 PM CDT [facility] Blood BLOOD SPECIMEN / Unknown Butterfly / Unknown 03/22/2024 6:38 PM CDT 03/22/2024 6:40 PM CDT Nir Bishop MD CHEMISTRY [facility] [address] [place] [address], [place] * (ABNORMAL) URINALYSIS MICROSCOPIC (03/22/2024 6:00 PM CDT) RBC 0-2 0-2, None Seen /HPF 03/22/2024 6:35 PM CDT [facility] WBC 3-5 0-2, 3-5, None Seen /HPF 03/22/2024 6:35 PM CDT [facility] BACTERIA Rare None Seen, Rare, Few Bacteria/H PF 03/22/2024 6:35 PM CDT [facility] EPITHELIAL CELLS Few None Seen, Few Epi/HPF 03/22/2024 6:35 PM CDT [facility] RENAL EPITHELIAL CELLS Few(A) (none) 03/22/2024 6:35 PM CDT [facility] Urine URINE SPECIMEN / Unknown Non-Blood / Unknown 03/22/2024 6:00 PM CDT 03/22/2024 6:04 PM CDT Nir Bishop MD URINE [facility] [address] [place] [address], * SODIUM,RANDOM URINE (03/22/2024 6:00 PM CDT) SODIUM,RANDOM URINE 77 mmol/L 03/23/2024 9:00 PM CDT [facility] Comment:No Reference Range D efined. Urine URINE SPECIMEN / Unknown Non-Blood / Unknown 03/22/2024 6:00 PM CDT 03/22/2024 6:04 PM CDT Nir Bishop MD URINE [facility] [address] [place] [address], [place] * (ABNORMAL) UA W/ SEDIMENT EXAM REFLEXED PER CRITERIA (03/22/2024 6:00 PM CDT) COLOR Yellow Yellow Color 03/22/2024 6:10 PM CDT [facility] CLARITY Clear Clear Clarity 03/22/2024 6:10 PM CDT [facility] SPECIFIC GRAVITY,URINE 1.010 1.010, 1.015, 1.020, 1.025 03/22/2024 6:10 PM CDT [facility] PH,URINE 6.5 6.0, 7.0, 8.0, 5.5, 6.5, 7.5, 8.5 03/22/2024 6:10 PM CDT [facility] UROBILINOGEN,Q UALITATIVE Normal Normal EU/dl 03/22/2024 6:10 PM CDT [facility] PROTEIN, URINE Negative Negative mg/dL 03/22/2024 6:10 PM CDT [facility] GLUCOSE, URINE Negative Negative mg/dL 03/22/2024 6:10 PM CDT [facility] KETONES,URINE Negative Negative mg/dL 03/22/2024 6:10 PM CDT [facility] BILIRUBIN,URIN E Negative Negative 03/22/2024 6:10 PM CDT [facility] OCCULT BLOOD,URINE Negative Negative 03/22/2024 6:10 PM CDT [facility] NITRITE Negative Negative 03/22/2024 6:10 PM CDT [facility] LEUKOCYTE ESTERASE Trace(A) Negative 03/22/2024 6:10 PM CDT [facility] Urine URINE SPECIMEN / Unknown Non-Blood / Unknown 03/22/2024 6:00 PM CDT 03/22/2024 6:04 PM CDT Nir Bishop MD URINE Performing Organization Address City/[facility]/ZIP Co de Phone Number [facility] [place] [address], * OSMOLALITY,URINE (03/22/2024 6:00 PM CDT) OSMOLALITY,URI NE 320 50 - 1,400 mOsmol/kg 03/23/2024 6:53 PM CDT [facility] Urine URINE SPECIMEN / Unknown Non-Blood / Unknown 03/22/2024 6:00 PM CDT 03/22/2024 6:04 PM CDT Brock Harrison DO URINE [facility] [address] [place] [address], * (ABNORMAL) BASIC METABOLIC PANEL (03/22/2024 4:49 PM CDT) SODIUM 122(L) 136 - 145 mmol/L 03/22/2024 5:41 PM CDT [facility] POTASSIUM 4.5 3.5 - 5.1 mmol/L 03/22/2024 5:41 PM CDT [facility] CHLORIDE 86(L) 98 - 107 mmol/L 03/22/2024 5:41 PM CDT [facility] CO2,TOTAL 26 22 - 29 mmol/L 03/22/2024 5:41 PM CDT [facility] ANION GAP 10 5 - 18 03/22/2024 5:41 PM CDT [facility] GLUCOSE 92 70 - 99 mg/dL 03/22/2024 5:41 PM CDT [facility] CALCIUM 9.9 8.8 - 10.2 mg/dL 03/22/2024 5:41 PM CDT [facility] BUN 14 8 - 23 mg/dL 03/22/2024 5:41 PM CDT [facility] CREATININE 0.91(H) 0.50 - 0.90 mg/dL 03/22/2024 5:41 PM CDT [facility] BUN/CREAT RATIO 15 10 - 20 5:41 PM CDT [facility] eGFR 61(L) >90 mL/min/1.7 3m2 03/22/2024 5:41 PM CDT [facility] Comment:As [...] 4:54 PM CDT Nir Bishop MD CHEMISTRY [facility] [address] [place] [address], [place] [phone] from Last 3 Months Advance Directives * Full Code (Latest Code Status on File) Date Activated Date Inactivated Comments 03/22/2024 8:13 PM 03/24/2024 3:39 PM Question Answer Comments Code Status Discussion: Reviewed Preferences * Full Code Date Activated Date Inactivated Comments 12/22/2011 12:34 PM 12/22/2011 6:48 PM Care Teams Manager Zone Relationship Specialty Start Date End Date Clinic, [facility] [address] [place] [address] PCP - General 04/25/24
--- OUTSIDE RECORDS SUMMARY | 2024-04-29 11:25 | XMS_ITS ---
Author Organization [facility] Address [address] [place] [address] Care Team Providers Care Nuclear Supervising Operator Name Role Phone Unavailable Unavailable Unavailable Surgery Details Not on file Complications Check Surgery Details section. Procedure Estimated Blood Loss Check Surgery Details section. Procedure Findings Check Surgery Details section. Procedure Specimens Taken Check Surgery Details section.
--- OUTSIDE RECORDS SUMMARY | 2024-04-29 11:25 | XMS_ITS | Encounter Summary ---
Author Organization [facility] Address [address] [place] [id number] Care Team Providers Care Barrel Rifler Hook Name Role Phone Elsewhere, Pcp Primary Care Provider Unavailabl e Reason for Visit * Reason Comments Consult * Outpatient (Routine) - Closed Specialty Diagnoses / Procedures Referred By Violeta keating Referred To Contact Endocrinology Diagnoses Fracture Pelvis Other Parts Closed Initial (HCC) Nenita Elkins MPAS, P.A.-C. [address] [place] [phone] [facility] Referral ID Status Reason Start Date Expiration Date Visits Re quested Visits Authorized [id number] Closed 03/03/2024 09/02/2025 1 1 Encounter Details Date Type Department Care Team (Latest Contact Info) Description 04/05/2024 11:00 AM CDT Comprehensive Visit Division of Endocrinology in [place], [place] [address] [place] [phone] Nenita Elkins MPAS, P.A.-C. [address] [place] [phone] Cristi Tierney M.D. [address] [place] [phone] Osteoporosis Post Menopausal With Pathological Fracture Subsequent (Primary Dx); Fracture Pelvis Other Parts Closed Initial (HCC) Social History Tobacco Use Types Packs/Day Years [...] How often do you attend chur or hindu services? More than 4 times per year 09/27/2022 Do you belong to any clubs o r organizations such as bahai groups, unions, fraternal or athletic groups, or [...] and heating? Not hard at all 09/27/2022 [facility] of Occupat ional Health - Occupational Stress [...] your [facility] situation today? [facility] 03/03/2024 Education Answer Date Recorded What is the highest level of school you have completed or the highest degree you have received? 12th grade 09/27/2022 Sex and Gender Information Value Date Recorded Sex Assigned at Not on file Gender Identity Not on file Sexual Orientation Not on file documented as of this encounter Consult Notes * Cristi Tierney M.D. - 04/05/2024 11:00 AM CDT REFERRAL SOURCE URIEL Pacheco,* SUBJECTIVE Patient seen in the [facility] in conjunction with orthopedic surgery, Dr. Maura Edwards. CHIEF COMPLAINT / REASON FOR VISIT Pelvic fracture HISTORY OF PRESENT ILLNESS Kathryn Leon is a 89 y.o. female who presents for bone health evaluation. Ms. Leon underwent non operative management of pelvic fracture February 2024 following ground level fall. Low bone density and fragility fracture risk factors include: hypogonadism Treatment: She initiated alendronate June 2019 after densitometry showed low bone mass and increased fracture risk. She has taken inappropriately without difficulty since that time. She was anticipating follow up with Dr. Sandoval after five years. FALL RISK: Falls in the past year: Yes - just the one. She was walking backwards down the stairs while carrying a load and missed the final step and fell. Otherwise no balance concerns. Risk factors: none NUTRITION/FITNESS: Diet: She does well to include adequate calcium and protein intake and vitamin-D. Activity/Exercise: Historically quite active RELEVANT DENTAL HISTORY: No active concerns The following portions of the patient's history were reviewed and updated as appropriate: allergies, current medications, family history, medical history, social history, surgical history and problemlist. OBJECTIVE PHYSICAL EXAMINATION Appears well. Using a walker given the recent fracture but otherwise no overt features of frailty. 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 Unchanged throughout the course of alendronate therapy. Fractures: 2023 right pelvic fracture, ground level fall Treatment: Alendronate June 2019 scheduled to complete five years of therapy June 2024 Assessment & Plan: She is nearing completion of five years of oral alendronate therapy for prevention of osteoporotic fracture based upon increased fracture risk associated with low bone density. However, this is her 1st major fracture event. As she recovers from this event, she is aware that her balance and physical function isn't quite as good noting that prior to the fracture she was not having any falling concerns, not fracturing, stable bone density, overall picture consistent with the effect of osteoporosistherapy on alendronate. Therefore, no immediate thought to change her treatment plan based upon this event. Put another way, one fracture on treatment is not necessarily treatment failure. However, she is at higher risk for fractures going for by virtue of her age, that she might not getback her full function upon recovery from this event and she does place a high value on fracture prevention. In this regard, she would have a greater chance avoiding fractures going forward if she did shift therapy to an anabolic therapy specifically romosozumab (Evenity) injection every four weeksfor one year in place of alendronate and then returning to alendronate for at least two years thereafter. The decision to do so would be somewhat subjective. As such, she is going to give it some time to think about it as well as talk with her primary care provider. If she feels she recovers well from this event, she will likely continue with the current plan of care which is to stop alendronate this fall for a 2-5 year drug holiday. If in the coming months she does not feel good about how things aregoing with respect to her chance for another fall and fracture, she would pursue the Evenity therapy and I could help with that. documented in this encounter Miscellaneous Notes * Assessment & Plan Note - Cristi Tierney M.D. - 04/05/2024 12:56 PM CDT Associated Problem(s): Osteoporosis Post Menopausal With Pathological Fracture Subsequent She is nearing completion of five years of oral alendronate therapy for prevention of osteoporotic fracture based upon increased fracture risk associated with low bone density. However, this is her 1st major fracture event. As she recovers from this event, she is aware that her balance and physical function isn't quite as good noting that prior to the fracture she was not having any falling concerns, not fracturing, stable bone density, overall picture consistent with the effect of osteoporosistherapy on alendronate. Therefore, no immediate thought to change her treatment plan based upon this event. Put another way, one fracture on treatment is not necessarily treatment failure. However, she is at higher risk for fractures going for by virtue of her age, that she might not getback her full function upon recovery from this event and she does place a high value on fracture prevention. In this regard, she would have a greater chance avoiding fractures going forward if she did shift therapy to an anabolic therapy specifically romosozumab (Evenity) injection every four weeksfor one year in place of alendronate and then returning to alendronate for at least two years thereafter. The decision to do so would be somewhat subjective. As such, she is going to give it some time to think about it as well as talk with her primary care provider. If she feels she recovers well from this event, she will likely continue with the current plan of care which is to stop alendronate this fall for a 2-5 year drug holiday. If in the coming months she does not feel good about how things aregoing with respect to her chance for another fall and fracture, she would pursue the Evenity therapy and I could help with that. documented in this encounter Plan of Treatment Upcoming Encounters Date Type Department Care Team (Late st Contact Info) Description 05/02/2024 3:15 PM CDT Clinical Support Department of Rehabilitation Services in [address] [phone] Yobany Bateman APRN, C.N.P., D.N.P. [address] [place] [phone] Antonia Raines P.TDann [address] [place] [phone] 05/10/2024 1:00 PM CDT Clinical Support Department of Rehabilitation Services in [address] [phone] Yobany Bateman APRN, C.N.P., D.N.P. [address] [place] [phone] Rashaun Garcia P.T. 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
--- OUTSIDE RECORDS SUMMARY | 2024-04-29 11:25 | XMS_ITS | Encounter Summary ---
Author Organization [facility] Address [address] [place] [address] Care Team Providers Care Automatic Packer Operator Name Role Phone Elsewhere, Pcp Primary Care Provider Unavailabl e Encounter Details Date Type Department Care Team (Latest Contact Info) Description 04/15/2024 Clinical Communication Department of Rehabilitation Services in [address] [phone] Rashaun Garcia, P.T. [address] [place] [phone] Social History Tobacco Use Types Packs/Day Years Used Date Smoking Tobacco: Never Smokeless Tobacco: Never Alcohol Use Standard Drinks/Week Comments Not Currently 0 (1 standard drink = 0.6 oz pur e alcohol) [facility] Utilities Answer Date Recorded In the past 12 months has [facility] [employer], gas, oil, or water [employer] threatened to shut off services in your [...] How often do you attend chur or nondenominational services? More than 4 times per year 09/27/2022 Do you belong to any clubs o r organizations such as yazidi groups, unions, fraternal or athletic groups, or [...] and heating? Not hard at all 09/27/2022 [facility] of Occupat ional Health - Occupational [...] your living situation today? I have a [facility] place to live 03/03/2024 Education Answer [...] Clinical Support Department of Rehabilitation Services in [address] [phone] Yobany Bateman APRN, C.N.P., D.N.P. [address] [place] [phone] Antonia Raines, P.TDann [address] [place] [phone] 05/10/2024 1:00 PM CDT Clinical Support Department of Rehabilitation Services in [address] [phone] Yobany Bateman APRN, C.NOlivia, D.N.P. 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
--- OUTSIDE RECORDS SUMMARY | 2024-04-29 11:25 | XMS_ITS | Encounter Summary ---
Author Organization [facility] Address [address] [place] [address] Care Team Providers Care Investor Relations Director Name Role Phone Elsewhere, Pcp Primary Care Provider Unavailabl e Reason for Visit * Physical Therapy (Routine) - Authorized Specialty Diagnoses / Procedures Referred By Violeta t Referred To Contact Diagnoses Fracture Pelvis Multiple With Stable Disruption Of Pelvic Ring Open Initial (HCC) Procedures PT Ongoing treatment Yobany Bateman APRN, C.N.P., D.N.P. [address] [place] [phone] [facility] Referral ID Status Reason Start Date Expiration Date V isits Requested Visits Authorized [id number] Authorized 04/04/2024 04/04/2025 99 99 Encounter Details Date Type Department Care Team (Latest Contact Info) Description 04/21/2024 10:30 AM CDT Clinical Support Department of Rehabilitation Services in [address] [phone] Yobany Bateman APRN, C.N.P., D.N.P. [address] [place] [phone] Rashaun Garcia P.T. [address] [place] [phone] Fracture Pelvis Multiple With Stable Disruption Of Pelvic Ring Open Initial (HCC) Social History Tobacco Use Types Packs/Day Years Used Date Smoking Tobacco: Never Smokeless Tobacco: Never Alcohol Use Standard Drinks/Week Comments Not Currently 0 (1 standard drink = 0.6 oz pur e alcohol) [facility] Utilities Answer Date Recorded In the [...] How often do you attend chur or moravian services? More than 4 times per year 09/27/2022 Do you belong to any clubs o r organizations such as rastafarian groups, unions, fraternal or athletic groups, or [...] and heating? Not hard at all 09/27/2022 [facility] [place] of Occupat ional Health - Occupational Stress [...] your [facility] today[facility] 03/03/2024 Education Answer Date Recorded What is the highest level of school you have completed or the highest degree you have received? 12th grade 09/27/2022 Sex and Gender Information Value Date Recorded Sex Assigned at Not on file Gender Identity Not on file Sexual Orientation Not on file documented as of this encounter Progress Notes * Beissel, Rashaun J, P.T. - 04/21/2024 10:30 AM CDT Subjective: Kathryn comes into therapy today after not having seen her for a little over a week. She developed some increase in low back pain which she feels may have stim from therapies last time. She did not havepain directly after treatment last time. However, day later she started having some increase in symptoms. This is all in the low back region. She does not have any groin pain. She did actually go have an x-ray of her lumbar spine yesterday. They did not see anything of significance on radiographs. Overall, she feels she has improved a good amount since last week. Objective: We attempted to treat with interferential times 20 minutes. She could tolerate approximately 15 minutes. Lying in prone started to cause some increase in pain in the low back this being on the right side. This is quite specific to the right lumbosacral joint. She was quite tender with palpation to this area. She could not really tolerate a whole lot more due to some increasing discomfort with herpositioning. Assessment: Patient presents with low back pain. This appears to be related to facet syndrome. X-rays do not show anything of significance. Plan: We would like for her to give this another week. At that time, we can hopefully continue with strengthening. This was a non billable visit. documented in this encounter Plan of Treatment Upcoming Encounters Date Type Department Care Team (Late st Contact Info) Description 05/02/2024 3:15 PM CDT Clinical Support Department of Rehabilitation Services in [address] [phone] Yobany Bateman APRN, C.N.P., D.N.P. [address] [place] [phone] Antonia Raines P.T. [address] [place] [phone] 05/10/2024 1:00 PM CDT Clinical Support Department of Rehabilitation Services in [address] [phone] Yobany Bateman APRN, C.N.P., D.N.P. 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
--- OUTSIDE RECORDS SUMMARY | 2024-04-29 11:25 | XMS_ITS | Clinical Summary ---
Author Organization [facility] Address [address] [place] [address] Care Team Providers Care Shoelace Tipp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 Name Role Phone Elsewhere, Pcp Primary Care Provider Unavailabl e Source Comments Patient records contain information from all sites at [facility]. For routine questions regarding patient records, call [phone] during business hours, M-F 8:00 AM - 5:00 PM Central Time. Record requests for emergency care only can be directed to [phone] at any time.[facility] Allergies Active Allergy Reactions Criticality Noted Date [...] ORAL Take 1,000 mcg by mouth daily. 1 Active ferrous sulfate 325 mg (65 mg iron) tablet Take 1 tablet by mouth daily. 4 Active MULTIVITAMIN ORAL Take 1 tablet by mouth daily. 1 Active fluticasone propionate (FLONASE) 50 mcg/actuation nasal spray Administer 2 sprays into each nostril daily as needed for rhinitis or allergies. 16 g 12 9 Active omeprazole (PriLOSEC) [address] capsule Take 1 capsule by mouth daily. 9 Active cycloSPORINE (RESTASIS) 0.05 % ophthalmic emulsion Administer 1 drop into both eyes 2 (two) times a day. Active calcium carbonate-vitamin D3 1,500 mg (600 mg calcium)-10 mcg (400 Unit) per tablet Take 1 tablet by mouth 2 (two) times a day with meals. Active colchicine (COLCRYS) 0.6 mg tablet daily as needed. 2 Active alendronate (FOSAMAX) 70 mg tablet TAKE 1 TABLET EVERY 7 DAYS (WEEKLY) ON AN EMPTY STOMACH, REMAIN UPRIGHT FOR AT LEAST 30 MINUTES 12 tablet 3 [address] tablet Take 81 mg by mouth daily. Active alendronate (FOSAMAX) 70 mg tablet TAKE 1 TABLET EVERY 7 DAYS (WEEKLY) ON AN EMPTY STOMACH REMAIN UPRIGHT FOR AT LEAST 30 MINUTES 12 tablet 3 3 Active fexofenadine-pseudo ephedrine (MING-D) 60-120 mg per 12 hr tablet Take 1 tablet by mouth 2 (two) times a day. 180 tablet 1 4 Active gabapentin (Neurontin) 100 mg capsule daily as needed. 4 Active acetaminophen (TylenoL) 325 mg tablet Take 2 tablets (650 mg total) by mouth every 4 (four) hours as needed for pain for up to 14 days. 50 tablet 4 Active losartan (Cozaar) 25 mg tablet Take 1 tablet (25 mg total) by mouth daily for 28 days. HOLD medication until restarted by PCP 4 Active hydroCHLOROthiazide 12.5 mg tablet Take 1 tablet (12.5 mg total) by mouth daily for 28 days. HOLD medication until restarted by PCP 28 tablet 4 Active enoxaparin (Lovenox) 40 mg/0.4 mL injection Inject 0.4 mL (40 mg total) under the skin daily for 20 days. Through 03/30/24 for DVT prophylaxis 8 mL 4 Active oxyCODONE (Roxicodone) 5 mg immediate release tablet Take 1 tablet (5 mg total) by mouth 3 (three) times a day as needed for pain for 7 days. 21 tablet 4 Active meclizine (Antivert) 25 mg tablet Take 25 mg by mouth at bedtime as needed. 4 Active acetaminophen (TylenoL) 500 mg tablet Take 1,000 mg by mouth every 6 (six) hours. 4 Active alendronate (Fosamax) 70 mg tablet Take 70 mg by mouth over 168 hr. 3 Active cyanocobalamin (Vitamin B-12) 1,000 mcg tablet Take 1,000 mcg by mouth daily. Active gabapentin (Neurontin) 100 mg capsule Take 100 mg by mouth at bedtime as needed. 4 Active losartan (Cozaar) 50 mg tablet Take 50 mg by mouth daily. 4 Active oxyCODONE (Roxicodone) 5 mg immediate release tablet Take 5 mg by mouth every 4 (four) hours as needed. 4 Active vitamins A,C,G-lbmd-lqdsfd (PreserVision AREDS) 7,160 Units-113 mg-100 Units per tablet Take 1 tablet by mouth daily. Active oxyCODONE (Roxicodone) 5 mg immediate release tabletIndications:A cute Pain Exception Take 1 tablet (5 mg total) by mouth 3 (three) times a day as needed for pain for 7 days. Indication: Acute Pain Exception. 21 tablet 4 Active celecoxib (CeleBREX) 200 mg capsule Take 1 capsule (200 mg total) by mouth 2 (two) times a day. 60 capsule 1 4 Active nitrofurantoin monohydrate (Macrobid) 100 mg capsule Take 1 capsule (100 mg total) by mouth every 12 (twelve) hours for 7 days: must administer with a meal/food. 14 capsule 4 05/05/20 24 Active dorzolamide-timoloL (COSOPT) 22.3-6.8 mg/mL ophthalmic solution Administer 1 drop into the right eye daily. 04/05/20 24 Discontinued fluorouraciL (EFUDEX) 5 % cream Apply topically twice daily for 46 weeks 40 g 4 04/05/20 24 Discontinued lidocaine (Salonpas, lidocaine,) 4 % adhesive patch,medicated Place 1 patch on the skin every 12 (twelve) hours as needed (pain) for up to 28 days. 28 patch 4 04/05/20 24 Discontinued diclofenac sodium (Voltaren) 1 % gel Apply 4 g topically 4 (four) times a day. Apply to painful areas. Do not place over areas of broken skin 20 g 4 04/05/20 24 Discontinued polyethylene glycol (Miralax) 17 gram powder packet Take 1 packet (17 g total) by mouth daily for 27 days. Dissolve each 17 g dose in 240 mLs (8 ounces) of beverage. 27 packet 4 04/05/20 24 Discontinued sennosides-docusate sodium (Senokot-S) 8.6-50 mg per tablet Take 1 tablet by mouth 2 (two) times a day for 28 days. 54 tablet 4 04/05/20 24 ondansetron ODT (Zofran-ODT) 4 mg disintegrating tablet Dissolve 1 tablet (4 mg total) in the mouth every 8 (eight) hours as needed for nausea or vomiting. 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 Unchanged throughout the course of alendronate therapy. Fractures: 2023 right pelvic fracture, ground level fall Treatment: Alendronate June 2019 scheduled to complete five years of therapy June 2024 Assessment & Plan (04/05/2024 12:56 PM CDT): She is nearing completion of five years [...] overall picture consistent with the effect of osteoporosis therapy on alendronate. Therefore, no immediate thought to change her treatment plan based upon this event. Put another way, one fracture on treatment is not necessarily treatment failure. However, she is at higher risk for fractures going for by virtue of her age, that she might not get back her full function upon recovery from this event and she does place a high value on fracture prevention. In this regard, she would have a greater chance avoiding fractures going forward if she did shift therapy to an anabolic therapy specifically romosozumab (Evenity) injection every four weeks for one year in place of alendronate and [...] does not feel good about how things are going with respect to her chance for another fall and fracture, she would pursue the Evenity therapy and I could help with that. Vertigo Benign Paroxysmal Positional Bilateral 0 05/13/2019 Vertigo 05/12/2019 Arthritis Rheumatoid 10/25/2010 Overview (02/03/2017): Arthritis, rheumatoid* Encounters Date Type Department Care Team Description 04/21/2024 10:30 AM CDT Clinical Support Department of Rehabilitation Services in [address] [phone] Yobany Bateman APRN, C.N.P., D.N.P. Rashaun Garcia, P.T. Fracture Pelvis Multiple With Stable Disruption Of Pelvic Ring Open Initial (HCC) 04/15/2024 Clinical Communication Department of Rehabilitation Services in [address] [phone] Rashaun Garcia, P.T. 04/07/2024 2:30 PM CDT Clinical Support Department of Rehabilitation Services in [address] [phone] Yobany Bateman APRN, CDannNTerri., D.N.P. Rashaun Garcia P.T. Fracture Pelvis Multiple With Stable Disruption Of Pelvic Ring Open Initial (HCC) 04/05/2024 11:00 AM CDT Office Visit Department of Orthopedic Surgery in [address] [phone] Nenita Elkins MPAS, P.A.-C. Fracture Pelvis Other Parts Closed Initial (HCC) (Primary Dx) 04/05/2024 11:00 AM CDT Comprehensive Visit Division of Endocrinology in [address] [phone] Nenita Elkins MPAS, P.A.-C. Cristi Tierney M.D. Osteoporosis Post Menopausal With Pathological Fracture Subsequent (Primary Dx); Fracture Pelvis Other Parts Closed Initial (HCC) 04/05/2024 10:00 AM CDT - 04/05/2024 11:59 PM CDT Hospital Encounter Department of Radiology, [facility], in [address] [phone] Nenita Elkins MPAS, P.A.-C. Fracture Pelvis Other Parts Closed Initial (HCC) Discharge Disposition: Home or Self Care 04/04/2024 2:30 PM CDT Comprehensive Visit Department of Rehabilitation Services in [address] [phone] Cielo Bhakta M.D. Beissel, Curtis J, P.T. Fracture Pelvis Multiple With Stable Disruption Of Pelvic Ring Open Initial (HCC) (Primary Dx) 03/30/2024 1:45 PM CDT Clinical Communication Virtual Review in [place], [place] [address] [place] [phone] Pre-visit Intake 03/10/2024 Orders Only Department of Orthopedic Surgery in [address] [phone] Nenita Elkins MPAS, P.A.-C. 03/10/2024 Clinical Communication Department of Orthopedic Surgery in [address] [phone] Nenita Elkins MPAS, P.A.-C. Lovenox Injections 03/05/2024 8:15 AM CDT Ancillary Procedure Department of Nursing 03/05/2024 8:10 AM CDT Ancillary Procedure Department of Nursing 03/03/2024 Orders Only Department of Orthopedic Surgery in [address] [phone] Nenita Elkins MPAS PDannADann-CDann Fracture Pelvis Other Parts Closed Initial (HCC) (Primary Dx) 03/02/2024 10:47 PM CDT - 03/09/2024 2:56 PM CDT Hospital Encounter [facility], [facility], Fifth Floor [address] [place] [phone] Adebayo Shepard M.D., M.P.H. Stacey Boone M.D. Sree Zaidi M.D. Aries Sinha M.D. History Of Falling (Primary Dx); Fracture Pelvis Other Parts Closed Initial (HCC); Difficulty Walking Orthopedic Cause [R26.2]; Decline Functional Status [R53.81] Discharge Disposition: [facility] from Last 3 Months Immunizations Name Administration Dates Next Due HZV (ZOSTAVAX) 10/02/2010 HepA Adult 07/30/2006,12/28/2001 HepB (discontinued) adolesce nt/high risk 06/29/2006,01/31/2002,12/28/2001 Hib (PRP-T) (ACTHIB, HIBERIX) 02/01/2007 Influenza [...] drink = 0.6 oz pur e alcohol) [facility] Utilities Answer Date Recorded In the past 12 months has e [employer], oil, or water [employer] threatened to shut off services in your [...] any clubs o r organizations such as oriental orthodox groups, unions, fraternal or athletic groups, or [...] heating? Not hard at all 09/27/2022 [facility] - Occupational [...] your living situation today? I have a [facility] place to live 03/03/2024 Education Answer [...] Clinical Support Department of Rehabilitation Services in [address] [phone] Yobany Bateman APRN, Angy.N.P., D.N.P. [address] [place] [phone] Antonia Raines P.T. [address] [place] [phone] 05/10/2024 1:00 PM CDT Clinical Support Department of Rehabilitation Services in [address] [phone] Yobany Bateman APRN, Angy.N.P., D.N.P. [address] [place] [phone] Rashaun Garcia P.Marleni [address] [place] [phone] Health Maintenance Due Date Last Done Comments Depression Screening (Annual PHQ-2) 09/14/2023 COVID-19 Vaccine (2022-2 4 season) 2023 07/14/2023, 07/09/2022, 02/12/2022, Additional history exists Zoster Vaccines (3 of 3) 04/11/2024 02/15/2024, 09/14 Influenza Vaccine (#1) 2024 , 06/11/2023, 07/10/2022, Additional history exists Creatinine Level (Kidney Fun ction Test) 03/23/2025 03/23/2024, 03/22/2024, 03/07/2024, Additional history exists Potassium Level 03/23/2025 03/23/2024, 05/2024, 03/07/2024, Additional history exists Sodium Level 03/24/2025 03/24/2024, 03/14, 03/23/2024, Additional history exists DTaP,Tdap,and Td Vaccines (4 - Td or Tdap) 02/16/2031 02/16/2021, 06/17/2011, 11/04/2010, Additional history exists Hepatitis A Vaccines Completed 07/30/2006, 12/29/19 02 Pneumococcal vaccine (65+ years) Completed 07/10/2015, 02/01/2007, 02/01/2007 Fall Risk Screen (Annual) Completed 03/09/2024 Medical Devices Implanted Type Area X Ray Service Technician Device Identifier Shelf Expiration Date Model / Serial / Lot Ocular Lens-02/26/2007 Implanted:2006 (Quantity not on file) Ocular Lens Left: Eye Conversions - Default Historical Implant Device Implanted:2014 (Quantity not on file) Ocular Lens Description:Device Status Te xt - OculrLens. Procedures Procedure Name Priority Date/Time Associated Diagnosis Comments DX PELVIS 3+ VIEWS RAD - Routine (most inpatients and all outpatients) 04/05/2024 10:32 AM CDT Fracture Pelvis Other Parts Closed Initial (HCC) BASIC METABOLIC PANEL, S/P Routine 03/07/2024 9:21 [...] CDT from Last 3 Months Results * DX Pelvis 3+ Views (04/05/2024 10:32 AM CDT) Only the most recent of2 resultswithin the time period is included. Anatomical Region Laterality Modality Pelvis, Musculoskeletal RST LOS, Musculoskeletal ARZ LOS, Muskuloskeletal FLA LOS N/A Digital Radiography Impressions 04/05/2024 10:45 AM CDT Healing comminuted fractures of the right superior and inferior pubic rami with extension across the pubic body. Increased displacement since 03/03/24. Bone resorption at the fracture sites. Healing right sacral ala fracture with linear sclerosis which is new. 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 Degenerative changes visualized lumbar spine and SI joints. Arterial calcifications. Narrative 04/05/2024 10:45 AM CDT EXAM: ??DX PELVIS 3+ VIEWS Procedure Note Abeba Fuentes M.D. - 04/05/2024 EXAM: DX PELVIS 3+ VIEWS IMPRESSION: Healing comminuted fractures of the right superior and inferior pubic ramiwith extension across the pubic body. Increased displacement since03/03/24. Bone resorption at the fracture sites. Healing right sacral alafracture with linear sclerosis which is new. Degenerative arthritis and chondrocalcinosis bothhips and pubic symphysis. Degenerative changes visualized lumbar spine andSI joints. Arterial calcifications. Nenita TREVINO, P.A.-C. IMG DIAGN OSTIC IMAGING PROCEDURES * (ABNORMAL) CBC with Differential, Blood (03/07/2024 [...] CDT Renée Brannon M.D. LAB BLOOD ADD-ON [facility] [address] [place] [address], [facility] DTL [facility] [address] [place] [address] DHPM [facility] [address] [place] [address] * (ABNORMAL) Basic Metabolic Panel (03/07/2024 9:21 PM CDT) Only the most recent of8 resultswithin the time period is included. Pathologist [facility] Potassium, S 4.7 3.6 - 5.2 mmol/L [...] CDT Renée Brannon M.D. LAB BLOOD ADD-ON [facility] [address] [place] [address], [facility] DTL [facility] [address] [place] [address] * DX Abdomen Portable Anterior Posterior 1 [...] pelvic fractures. Left breastcalcification. Melisa Erwin M.D. [facility] DIAGNOSTIC IMAGI NG PROCEDURES * (ABNORMAL) CBC [...] CDT Melisa Erwin M.D. LAB BLOOD ADD-ON Performing Organization Address [facility] Co de Phone Number [facility] [address] [place] [address], [facility] DTL [facility] [address] [place] [address] * ECG 12 Lead (03/05/2024 11:54 PM CDT) Only the most recent of2 resultswithin the time period is included. Ventricular Rate ECG/Min 73 BPM MUSE WV Interval 168 ms MUSE QRSD Interval 86 ms MUSE QT Interval 376 ms MUSE QTC Interval 414 ms MUSE P [place] 63 degrees MUSE R [place] 40 degrees MUSE T Wave [place] 60 degrees MUSE 03/05/2024 11:5 4 PM [...] Estes M.D. ECG ORDERABLES Performing Organization Address [facility] Co de Phone Number MUSE NA * (ABNORMAL) Glucose, POCT (03/05/2024 11:44 PM CDT) Glucose, POCT, B 143(H) 70 - 140 mg/dL 03/05/2024 11:53 PM CDT PCLX Site Capillary 03/05/2024 11:53 PM CDT PCLX Last Intake > 4 hours 03/05/2024 11:53 PM CDT PCLX Blood 03/05/2024 11:4 4 PM CDT 03/05/2024 11:53 PM CDT Unknown Provider LAB POCT ORDERABLES- MANUAL Performing Organization Address City/[facility]/ZIP Co de Phone Number POC [facility] [address] [place] [address], [facility] PCLX [facility] POC [address] [place] [address] * Leg, right-Nursing Image Exam (03/05/2024 8:12 [...] RAD IMAGI NG PROCEDURES Performing Organization Address [facility] Co de Phone Number IIMS NA * (ABNORMAL) Hemoglobin (03/04/2024 6:38 AM CDT) Only the most recent of2 resultswithin the time period is included. Pathologist [facility] Hemoglobin 10.4(L) 11.6 - 15.0 g/dL 03/04/2024 7:14 AM CDT DTL Blood (Blood, Venous) 03/04/2024 6:38 AM CDT 03/04/2024 7:01 AM CDT Renée Brannon M.D. LAB BLOOD ADD-ON Performing Organization Address City/[facility]/ZIP Co de Phone Number [facility] [address] [place] [address], [facility] DTL [facility] [address] [place] [address] * (ABNORMAL) Vitamin B12 Assay (03/03/2024 8:16 PM CDT) Pathologist [facility] Vitamin B12 Assay, S 1299(H) 180 - [...] CYRIL, C.N.P., M.S.N . LAB BLOOD ADD-ON [facility] [address] [place] [address], [facility] DTL [facility] [address] [place] [address] * IR Pelvic Artery Embolization (03/03/2024 7:51 [...] created and stored. Using Seldinger technique, a 5-Latvian vascular sheath was placed. A Flush catheter [...] was 83 minutes. Maggi Escalante M.D., M.S. [facility] IR PRO CEDURES * (ABNORMAL) Venous Blood Gas and Electrolytes CG8+, POCT (03/03/2024 3:12 AM CDT) [facility] Sample Site, POCT Venstick 03/03/2024 3:28 AM [...] M.D. LAB POCT ORDERABLES - DEVICE POC [facility] [address] [place] [address], [facility] PCLX [facility] POC [address] [place] [address] PCSM [facility] POC [address] [place] [address] * CT Thoracic Spine by Reconstruction (03/03/2024 [...] of the thoracic spine. Cam Luna M.D. [facility] CT PROCEDURES * CT Abdomen Pelvis with [...] were discussed with See Mcfarland M.D. (Pager [phone]) on 03/03/2024 2:19 AM Procedure Note Alfonso [...] were discussed with See Mcfarland M.D. (Pager [phone]) on03/03/2024 2:19 AM IMPRESSION: 1. Acute right [...] or calcium pyrophosphate deposition. Procedure Note Mando Marquze M.D. - 03/03/2024 EXAM: CT CERVICAL SPINE [...] or malalignment of the cervical spine. Cam LLANES CT PROCEDURES * CT Chest with IV [...] were discussed with See Mcfarland M.D. (Pager [phone]) on 03/03/2024 2:19 AM Procedure Note Alfonso [...] were discussed with See Mcfarland M.D. (Pager [phone]) on03/03/2024 2:19 AM IMPRESSION: 1. Acute right [...] intracranial abnormality or fracture. Cam Luna M.D. IMG CT PROCEDURES * DX Elbow Right 3+ [...] maintained. No joint effusion. Cam Luna M.D. IM DIAGNOSTIC IMAGI NG PROCEDURES * DX Hip [...] SIjoints and pubic symphysis. Vascular calcifications. Cam BREAUXG DIAGNOSTIC IMAGI NG PROCEDURES * CT Pelvis [...] CT abdomen pelvis 04/14/2018. Cam Luna M.D. [facility] CT PROCEDURES * CT Lumbar Spine without [...] Lumbar spondylosis, as described. Cam Luna M.D. [facility] CT PROCEDURES * Type and Screen (with [...] M.D., M.P.H. LAB BLOOD BANK TEST ORDERABLES [facility] [address] [place] [address], [place] STRM [facility] [address] [place] [address] from Last 3 Months Advance Directives For more information, please contact: [phone] * Full Code (Latest Code Status on [...] Answer Comments Full Code: Discussed Care Teams Shoelace Tipp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 Relationship Specialty Start Date End Date Elsewhere, Pcp PCP - General Family Medicine 01/31/21
--- OUTSIDE RECORDS SUMMARY | 2024-04-29 11:25 | XMS_ITS | Encounter Summary ---
Author Organization [facility] Address [address] [place] [address] Care Team Providers Care Lamination Assembler Name Role Phone Elsewhere, Pcp Primary Care Provider Unavailabl e Reason for Referral * Outpatient (Routine) - Closed Specialty Diagnoses / Procedures Referred By Contac t Referred To Contact Diagnoses Fracture Pelvis Other Parts Closed Initial (HCC) Procedures DX Pelvis 3+ Views DX Pelvis 1-2 Views Nenita Elkins MPAS P.A.-CDann [address] [place] [phone] [facility] Referral ID Status Reason Start Date Expiration Date Visits Re quested Visits Authorized [id number] Closed 03/03/2024 03/03/2025 1 1 Reason for Visit * Outpatient (Routine) - Closed Specialty Diagnoses / Procedures Referred By Contac t Referred To Contact Diagnoses Fracture Pelvis Other Parts Closed Initial (HCC) Procedures DX Pelvis 3+ Views DX Pelvis 1-2 Views Nenita Elkins MPAS PDannA.-CDann [address] [place] [address] [facility] Referral ID Status Reason Start Date Expiration Date Visits Re quested Visits Authorized [id number] Closed 03/03/2024 03/03/2025 1 1 Encounter Details Date Type Department Care Team (Latest Contact Info) Description 04/05/2024 10:00 AM CDT - 04/05/2024 11:59 PM CDT Hospital Encounter Department of Radiology, [facility], in [place], [place] [address] [place] [address] Nenita Elkins, URIEL, P.A.-C. [address] [place] [address] Fracture Pelvis Other Parts Closed Initial (HCC) Discharge Disposition: Home or Self Care Social History Tobacco Use Types Packs/Day Years Used Date Smoking Tobacco: Never Smokeless Tobacco: Never Alcohol Use Standard Drinks/Week Comments Not Currently 0 (1 standard drink = 0.6 oz pur e alcohol) [facility] Utilities Answer Date Recorded In the past 12 months has e [employer], gas, oil, or water [employer] threatened to shut off services in your [...] you attend [facility] or scientologist services? More than 4 times per year 09/27/2022 Do you belong to any clubs o r organizations such as episcopal groups, unions, fraternal or athletic groups, or [...] and heating? Not hard at all 09/27/2022 [facility] of Occupat ional [facility] - Occupational Stress Questionnaire Answer Date Recorded [...] Refills Start Date End Date acetaminophen (TylenoL) 500 mg tablet Take 1,000 mg by mouth every 6 (six) hours. 03/15/2024 alendronate (FOSAMAX) 70 mg tablet TAKE 1 [...] 0.6 mg tablet daily as needed. 10/21/2021 cyanocobalamin (Vitamin B-12) 1,000 mcg tablet Take 1,000 mcg by mouth daily. CYANOCOBALAMIN, VITAMIN B-12, ORAL Take 1,000 mcg by mouth daily. 10/25/2010 cycloSPORINE (RESTASIS) 0.05 % ophthalmic emulsion Administer 1 drop into both eyes 2 (two) times a day. ferrous sulfate 325 mg (65 mg iron) tablet Take 1 tablet by mouth daily. 11/02/2013 fexofenadine-pseudoeph edrine (MING-D) 60-120 mg per 12 hr tablet Take 1 tablet by mouth 2 (two) times a day. 180 tablet 1 02/18/2024 fluticasone propionate (FLONASE) 50 mcg/actuation nasal spray Administer 2 sprays into each nostril daily as needed for rhinitis or allergies. 16 g 12 05/14/2019 gabapentin (Neurontin) 100 mg capsule daily as needed. 11/02/2023 gabapentin (Neurontin) 100 mg capsule Take 100 mg by mouth at bedtime as needed. 03/10/2024 hydroCHLOROthiazide 12.5 mg tablet Take 1 tablet (12.5 mg total) by mouth daily for 28 days. HOLD medication until restarted by PCP 28 tablet 03/09/2024 losartan (Cozaar) 25 mg tablet Take 1 tablet (25 mg total) by mouth daily for 28 days. HOLD medication until restarted by PCP 03/09/2024 losartan (Cozaar) 50 mg tablet Take 50 mg by mouth daily. 03/22/2024 meclizine (Antivert) 25 mg tablet Take 25 mg by mouth at bedtime as needed. 03/22/2024 MULTIVITAMIN ORAL Take 1 tablet by mouth daily. 10/25/2010 omeprazole (PriLOSEC) [address] capsule Take 1 capsule by mouth daily. 05/20/2019 oxyCODONE (Roxicodone) 5 mg immediate release tablet Take 1 tablet (5 mg total) by mouth 3 (three) times a day as needed for pain for 7 days. 21 tablet 03/30/2024 oxyCODONE (Roxicodone) 5 mg immediate release tablet Take 5 mg by mouth every 4 (four) hours as needed. 03/24/2024 vitamins A,C,O-snmc-heaseh (PreserVision AREDS) 7,160 Units-113 mg-100 Units per tablet Take 1 tablet by mouth daily. documented as of this encounter Plan of Treatment Upcoming Encounters Date Type Department Care Team (Late st Contact Info) Description 05/02/2024 3:15 PM CDT Clinical Support Department of Rehabilitation Services in [address] [phone] Yobany Bateman APRN, C.N.P., D.N.P. [address] [place] [address] Antonia Raines P.T. [address] [facility] [place] [phone] 05/10/2024 1:00 PM CDT Clinical Support Department of Rehabilitation Services in [address] [place] [phone] Yobany Bateman APRN, C.N.P., D.N.P. [address] [place] [address] Rashaun Garcia P.T. [address] [place] [phone] documented as of this encounter Procedures Procedure Name Priority Date/Time Associated Diagnosis Comments DX PELVIS 3+ VIEWS RAD - Routine (most inpatients and all outpatients) 04/05/2024 10:32 AM CDT Fracture Pelvis Other Parts Closed Initial (HCC) documented in this encounter Results * DX Pelvis 3+ Views (04/05/2024 10:32 AM CDT) Anatomical Region Laterality Modality Pelvis, Musculoskeletal [...] TREVINO, P.A.-C. IMG DIAGN OSTIC IMAGING PROCEDURES documented in this encounter Visit Diagnoses Diagnosis Fracture Pelvis Other Parts Closed Initial (HCC) documented in this encounter Additional Health Concerns Assessment Noted Time PHQ-9 Depression Total Score: 0 11/02/19 14 2:53 PM LABORATORY ASST documented as of this encounter Care Teams Lamination Assembler Relationship Specialty Start Date End Date Elsewhere, Pcp PCP - General Family Medicine 01/31/21 documented as of this encounter
--- OUTSIDE RECORDS SUMMARY | 2024-04-29 11:25 | XMS_ITS | Referral Summary ---
Author Organization [facility] Address [address] [place] [address] Care Team Providers Care Cnc Machinist Name Role Phone Elsewhere, Pcp Primary Care Provider Unavailabl e Source Comments Patient records contain information from all sites at [facility]. For routine questions regarding patient records, call [phone] during business hours, M-F 8:00 AM - 5:00 PM Central Time. Record requests for emergency care only can be directed to [phone] at any time.[facility] Encounters Date Type Department Care Team Description 04/21/2024 10:30 AM CDT Clinical Support Department of Rehabilitation Services in [address] [phone] Yobany Bateman APRN, Angy.N.P., Suhas.N.P. Rashaun Garcia, P.T. Fracture Pelvis Multiple With Stable Disruption Of Pelvic Ring Open Initial (HCC) 04/15/2024 Clinical Communication Department of Rehabilitation Services in [address] [phone] Rashaun Garcia, P.T. 04/07/2024 2:30 PM CDT Clinical Support Department of Rehabilitation Services in [address] [phone] Yobany Bateman APRN, Angy.N.P., Suhas.N.Rashaun Montague PMaikel Fracture Pelvis Multiple With Stable Disruption Of Pelvic Ring Open Initial (HCC) 04/05/2024 11:00 AM CDT Office Visit Department of Orthopedic Surgery in [address] [phone] Nenita Elkins MPAS, P.A.-C. Fracture Pelvis Other Parts Closed Initial (HCC) (Primary Dx) 04/05/2024 10:00 AM CDT - 04/05/2024 11:59 PM CDT Hospital Encounter Department of Radiology, [facility] in [address] [phone] Nenita Elkins MPAS, P.A.-C. Fracture Pelvis Other Parts Closed Initial (HCC) Discharge Disposition: Home or Self Care 04/05/2024 11:00 AM CDT Comprehensive Visit Division of Endocrinology in [address] [phone] Nenita Elkins MPAS, P.A.-C. Cristi Tierney M.D. Osteoporosis Post Menopausal With Pathological Fracture Subsequent (Primary Dx); Fracture Pelvis Other Parts Closed Initial (HCC) 04/04/2024 2:30 PM CDT Comprehensive Visit Department of Rehabilitation Services in [address] [phone] Cielo Bhakta M.D. Beissel, Curtis J, P.Marleni Fracture Pelvis Multiple With Stable Disruption Of Pelvic Ring Open Initial (HCC) (Primary Dx) 03/30/2024 1:45 PM CDT Clinical Communication Virtual Review in [place], [place] [address] [place] [address] Pre-visit Intake 03/10/2024 Orders Only Department of Orthopedic Surgery in [address] [phone] Nenita Elkins MPAS, P.A.-C. 03/10/2024 Clinical Communication Department of Orthopedic Surgery in [address] [phone] Nenita Elkins MPAS, P.A.-C. Lovenox Injections 03/02/2024 10:47 PM CDT - 03/09/2024 2:56 PM CDT Hospital Encounter [facility], Fifth Floor [address] [place] [phone] Adebayo Shepard M.D., M.P.H. Stacey Boone M.D. Sree Zaidi M.D. Kim, Brian D, M.D. History Of Falling (Primary Dx); Fracture Pelvis Other Parts Closed Initial (HCC); Difficulty Walking Orthopedic Cause [R26.2]; Decline Functional Status [R53.81] Discharge Disposition: Alf Facility 03/05/2024 8:15 AM CDT Ancillary Procedure Department of Nursing 03/05/2024 8:10 AM CDT Ancillary Procedure Department of Nursing 03/03/2024 Orders Only Department of Orthopedic Surgery in [address] [phone] Nenita Elkins MPAS, P.A.-C. Fracture Pelvis Other [...] (four) hours as needed. 4 Active vitamins A,C,L-jhhx-xfofrd (PreserVision AREDS) 7,160 Units-113 mg-100 Units per [...] drink = 0.6 oz pur e alcohol) [facility] [employer]coities Answer Date Recorded In the past 12 months has e [employer] gas, oil, or water [employer] threatened to shut off services in your [...] How often do you attend chur or judaism services? More than 4 times per year 09/27/2022 Do you belong to any clubs o r organizations such as mu-ism groups, unions, fraternal or athletic groups, or [...] and heating? Not hard at all 09/27/2022 [facility] of Occupat ional Health - Occupational Stress [...] your living situation today? I have a [facility] place to live 03/03/2024 Education Answer Date [...] Support Department of Rehabilitation Services in [address] [phone] Yobany Bateman APRN, C.N.P., D.N.P. [address] [place] [phone] Antonia Raines P.T. 701 [facility] [place] [phone] 05/10/2024 1:00 PM CDT Clinical Support Department of Rehabilitation Services in [place], [place] [address] [phone] Yobany Bateman APRN, C.N.P., D.N.P. [address] [place] [address] Rashaun Garcia P.T. [address] [place] [phone] Medical Devices Implanted Type Area Machine Packaging Technician Device Identifier Shelf Expiration Date Model [...] CDT Renée Brannon M.D. LAB BLOOD ADD-ON [facility] [address] [place] [address], [place] DTL [facility] [address] [place] [address] [facility] [address] [place] [address] * (ABNORMAL) Basic Metabolic Panel (03/07/2024 9:21 PM CDT) Only the most recent of8 resultswithin the time period is included. [facility] Potassium, S 4.7 3.6 - 5.2 [...] CDT Renée Brannon M.D. LAB BLOOD ADD-ON [facility] [address] [place] [address], [facility] DTL [facility] [address] [place] [address] * DX Abdomen Portable Anterior Posterior 1 [...] M.D. LAB BLOOD ADD-ON Performing Organization Address City/State/[facility] Co de Phone Number [facility] [address] [place] [address], [place] [address] [address] * ECG 12 Lead (03/05/2024 11:54 PM CDT) Only the most recent of2 resultswithin the time period is included. Ventricular Rate ECG/Min 73 BPM MUSE NJ Interval 168 ms MUSE QRSD Interval 86 ms MUSE QT Interval 376 ms MUSE QTC Interval 414 ms MUSE P [place] 63 degrees MUSE R [place] 40 degrees MUSE T Wave [place] 60 degrees MUSE 03/05/2024 11:5 4 PM [...] Estes M.D. ECG ORDERABLES Performing Organization Address City/State/[facility] de Phone Number MUSE NA * (ABNORMAL) Glucose, POCT (03/05/2024 11:44 PM CDT) Glucose, POCT, B 143(H) 70 - 140 mg/dL 03/05/2024 11:53 PM CDT PCLX Site Capillary 03/05/2024 11:53 PM CDT PCLX Last Intake > 4 hours 03/05/2024 11:53 PM CDT PCLX Blood 03/05/2024 11:4 4 PM CDT 03/05/2024 11:53 PM CDT Unknown Provider LAB POCT ORDERABLES- MANUAL Performing Organization Address [facility] de Phone Number POC [facility] [address] [place] [address], [facility] PCLX [facility] [place] POC [address] [place] [address] * Leg, right-Nursing Image Exam (03/05/2024 8:12 [...] RAD IMAGI NG PROCEDURES Performing Organization Address [facility] Co de Phone Number IIMS NA * (ABNORMAL) Hemoglobin (03/04/2024 6:38 AM CDT) Only the most recent of2 resultswithin the time period is included. Hemoglobin 10.4(L) 11.6 - 15.0 g/dL 03/04/2024 7:14 AM CDT DTL Blood (Blood, Venous) 03/04/2024 6:38 AM CDT 03/04/2024 7:01 AM CDT Renée Brannon M.D. LAB BLOOD ADD-ON Performing Organization Address [facility] Co de Phone Number [facility] [address] [place], [place] [address] [place] [address] [address] [place] [address] * (ABNORMAL) Vitamin B12 Assay (03/03/2024 8:16 [...] CYRIL, C.N.P., M.S.N . LAB BLOOD ADD-ON Performing Organization Address [facility] Co de Phone Number [facility] [address] [place], [place] [phone] [place] [address] [address] [place] [address] * IR Pelvic Artery Embolization (03/03/2024 7:51 [...] created and stored. Using Seldinger technique, a 5-[place]atorial [place] vascular sheath was placed. A Flush catheter [...] was 83 minutes. Maggi Escalante M.D., M.S. [facility] IR PRO CEDURES * (ABNORMAL) Venous Blood [...] M.D. LAB POCT ORDERABLES - DEVICE POC [facility] [address] [place] [address], [place] PCLX [facility] POC [address] [place] [address] PCSM [facility] POC [address] [place] [address] * CT Thoracic Spine by Reconstruction (03/03/2024 [...] were discussed with See Mcfarland M.D. (Pager [phone]) on 03/03/2024 2:19 AM Procedure Note Alfonso [...] were discussed with See Mcfarland M.D. (Pager [phone]) on03/03/2024 2:19 AM IMPRESSION: 1. Acute right [...] Cervical Spine, Neuroradiolo gy [facility]ST [facility], [facility], [facility] N/A Computed Tomography, Compute d Tomography [...] were discussed with See Mcfarland M.D. (Pager [phone]) on 03/03/2024 2:19 AM Procedure Note Alfonso [...] were discussed with See Mcfarland M.D. (Pager [phone]) on03/03/2024 2:19 AM IMPRESSION: 1. Acute right [...] Anatomical Region Laterality Modality Head, Neuroradiology RST [facility] , Neuroradiology ARZ [facility], Neuroradiology FLA [facility] N/A Computed Tomography, Compute d Tomography [...] intracranial abnormality or fracture. Cam Luna M.D. [facility] PROCEDURES * DX Elbow Right 3+ [...] maintained. No joint effusion. Cam Luna M.D. [facility] DIAGNOSTIC IMAGI NG PROCEDURES * DX Hip [...] pubic symphysis. Vascular calcifications. Cam Luna M.D. [facility] DIAGNOSTIC IMAGI NG PROCEDURES * CT Pelvis [...] CT abdomen pelvis 04/14/2018. Cam Luna M.D. [facility] CT PROCEDURES * CT Lumbar Spine without [...] 03/03/2024 3:15 AM CDT STRM Testing Location [place] DEFAULT 03/03/2024 2:35 AM CDT STRM Blood (Blood, Venous) 03/02/2024 11:50 PM CDT 03/03/2024 2:35 AM CDT Adebayo Shepard M.D., M.P.H. LAB BLOOD BANK TEST ORDERABLES [facility] [address] [place] [address], [facility] [address] [place] [address] from Last 3 Months Advance Directives For more information, please contact: [phone] * Full Code (Latest Code Status on [...] Answer Comments Full Code: Discussed Care Teams Cnc Machinist Relationship Specialty Start Date End Date Elsewhere, Pcp PCP - General Family Medicine 01/31/21
--- OUTSIDE RECORDS SUMMARY | 2024-04-29 11:25 | XMS_ITS | Encounter Summary ---
Author Organization [facility] Address [address] [place] [address] Care Team Providers Care Configuration Management Administrator Name Role Phone Elsewhere, Pcp Primary Care Provider Unavailabl e Reason for Visit * Physical Therapy (Routine) - Authorized Specialty Diagnoses / Procedures Referred By Violeta t Referred To Contact Diagnoses Fracture Pelvis Multiple With Stable Disruption Of Pelvic Ring Open Initial (HCC) Procedures PT Ongoing treatment Yobany Bateman APRN, C.N.P., D.N.P. [address] [place] [phone] [facility] Referral ID Status Reason Start Date Expiration Date V isits Requested Visits Authorized [id number] Authorized 04/04/2024 04/04/2025 99 99 Encounter Details Date Type Department Care Team (Latest Contact Info) Description 04/07/2024 2:30 PM CDT Clinical Support Department of Rehabilitation Services in [address] [phone] Yobany Bateman APRN, C.N.P., D.N.P. [address] [place] [phone] Rashaun Garcia P.T. [address] [place] [phone] Fracture Pelvis Multiple With Stable Disruption Of Pelvic Ring Open Initial (HCC) Social History Tobacco Use Types Packs/Day Years Used Date Smoking Tobacco: Never Smokeless Tobacco: Never Alcohol Use Standard Drinks/Week Comments Not Currently 0 (1 standard drink = 0.6 oz pur e alcohol) [facility] Utilities Answer Date Recorded In the [...] How often do you attend chur or caodaism services? More than 4 times per year 09/27/2022 Do you belong to any clubs o r organizations such as roman catholic groups, unions, fraternal or athletic groups, or [...] and heating? Not hard at all 09/27/2022 [facility] [place] of Occupat ional Health - Occupational Stress [...] your living situation today? [facility] 03/03/2024 Education Answer Date [...] Notes * Beissel, Rashaun J, P.T. - 04/07/2024 2:30 PM CDT Physical Therapy Outpatient Treatment Note SUBJECTIVE Patient's Name: Kathryn Leon Referring Provider: Yobany Bateman APRN, C.N.* Visit Diagnosis: 1. Fracture Pelvis Multiple With Stable Disruption Of Pelvic Ring Open Initial (HCC) Payor: MEDICARE / Plan: MEDICARE A AND B / Product Type: Medicare / No data recorded Epic Visit Count: 2 Patient comments: Kathryn comes into therapy today stating that she was little sore after her last visit. This seems to be muscular. OBJECTIVE Pain: Ortho Exam TREATMENT Treatment today consisted of: We continue with strengthening today. With patient supine, we had her work on bridging exercises. She worked on hip abduction/adduction. She worked on pelvic stabilization exercises. We had her work on isometric internal/external rotation of the hip. We then brought her over to the parallel bars and we had her work on step-ups/step-downs. This was with a 3 and a 6 in riser. Assessment Clinical Impression: Patient tolerated well overall. Functional Goals and Timeframes: PT Goal #1: To increase overall strength of the hips/core to 4+/5. PT Goal #1 Date: 05/09/24 PT Goal #2: Patient is able to ascending/descend stairs using 1 rail reciprocating as she goes. PT Goal #2 Date: 05/09/24 PT Goal #3: Patient is able ambulate independently with a standard cane for distance of 50 ft or greater. PT Goal #3 Date: 05/09/24 No data recorded Plan We will continue to work on strengthening and eventually try to progress with ambulation transferring to standard cane. Plan for next session: Time Spent with Patient Therapeutic Interventions Therapeutic Exercise (min): 45 min Time Tracking Total Timed Units (min): 45 min Total Treatment Time (min): 45 min documented in this encounter Plan of Treatment Upcoming Encounters Date Type Department Care Team (Late st Contact Info) Description 05/02/2024 3:15 PM CDT Clinical Support Department of Rehabilitation Services in [place] [phone] Yobany Bateman APRN, Angy.NTerri., D.N.P. [address] [place] [phone] Antonia Raines P.T. [address] [place] [phone] 05/10/2024 1:00 PM CDT Clinical Support Department of Rehabilitation Services in [address] [phone] Yobany Bateman APRN, Angy.N.P., D.N.P. [address] [place] [phone] Rashaun Garcia, P.TDann [address] [place] [phone] documented as of this encounter Visit Diagnoses Diagnosis Fracture Pelvis Multiple With Stable Disruption Of Pelvic Ring Open Initial (HCC) documented in this encounter Additional Health Concerns Assessment Noted Time PHQ-9 Depression Total Score: 0 11/02/19 14 2:[address] SECURITY documented as of this encounter Care Teams Configuration Management Administrator Relationship Specialty Start Date End Date Elsewhere, Pcp PCP - General Family Medicine 01/31/21 documented as of this encounter
--- OUTSIDE RECORDS SUMMARY | 2024-04-29 11:25 | XMS_ITS | Encounter Summary ---
Author Organization [facility] Address [address] [place] [id number] Care Team Providers Care Physical Metallurgist Name Role Phone Elsewhere, Pcp Primary Care Provider Unavailabl e Reason for Visit * Reason Comments Follow-up * Outpatient (Routine) - Closed Specialty Diagnoses / Procedures Referred By Violeta keating Referred To Contact Orthopedic Surgery Nenita Elknis MPAS, P.A.-C. [address] [place] [phone] [facility] Referral ID Status Reason Start Date Expiration Date Visits Re quested Visits Authorized [id number] Closed 03/03/2024 09/02/2025 1 1 Encounter Details Date Type Department Care Team (Late st Contact Info) Description 04/05/2024 11:00 AM CDT Office Visit Department of Orthopedic Surgery in [place], [place] [address] [place] [phone] Nenita Elkins MPAS, P.A.-C. [address] [place] [phone] Fracture Pelvis Other Parts Closed Initial (HCC) (Primary Dx) Social History Tobacco Use Types Packs/Day Years Used Date Smoking Tobacco: Never Smokeless Tobacco: Never Alcohol Use Standard Drinks/Week Comments Not Currently 0 (1 standard drink = 0.6 oz pur e alcohol) [facility] Utilities Answer Date Recorded In the past 12 months has th e electric, gas, oil, or water [employer] threatened to shut off services in your [...] often do you attend chur ch or hindu services? More than 4 times per year 09/27/2022 Do you belong to any clubs o r organizations such as temple groups, unions, fraternal or athletic groups, or [...] and heating? Not hard at all 09/27/2022 [employer] [place] [employer] - Occupational Stress [...] your living situation today? I have a [facility] place to live 03/03/2024 Education Answer Date Recorded What is the highest level of school you have completed or the highest degree you have received? 12th grade 09/27/2022 Sex and Gender Information Value Date Recorded Sex Assigned at Not on file Gender Identity Not on file Sexual Orientation Not on file documented as of this encounter Progress Notes * Nenita Elkins MPAS, P.A.-C. - 04/05/2024 11:00 AM CDT INVOLVED SIDE: Right DATE OF INJURY: 03/02/24 DESCRIPTION OF INJURY - Right closed LC I pelvic ring injury SUBJECTIVE HISTORY OF PRESENT ILLNESS Ms. Leon is a pleasant 89-year-old female who presents approximately 5 weeks out for follow-up of her right LC1 pelvic ring injury sustained on 03/02/2024 after a ground level fall. Today, she is doing better overall and pain continues to improve. She is taking Tylenol along with occasional half tablet of oxycodone as needed. She has been using a walker for ambulatory assistance, at baseline does not typically require any gait aid. Her pain is localized to the right-sided groin and feels that her right-sided low back is ???bruised?? . She denies any radiating pain, weakness or altered sensation in the lower extremities. She denies any bowel/bladder changes or saddle paresthesias. 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 OBJECTIVE PHYSICAL EXAMINATION General: The patient is alert and oriented. NEURO: Sensation intact to light touch in the sural, saphenous, tibial, deep peroneal, and superficial peroneal nerve distributions. Skin: no wounds, no skin breakdown/compromise Vessels: DP/PT pulses palpable and symmetric Gait: Not assessed Motor: Able to fire iliopsoas, stammering weakness related to pain right leg versus left. Satisfactory quadriceps, hamstrings, tibialis anterior, EHL, FHL, peroneals and gastroc complex Range of motion: Tolerates passive right hip ER/IR, painless. Full active extension right knee withflexion weighs 110??, painless. Able to actively extend/flex great and lesser toes Able to perform straight leg raise?: Yes Special testing: negative log roll testing RLE. Negative Salvatore's RADIOGRAPHS: - XR PELVIS 3+ VIEWS were independently reviewed and shows comminuted right superior and inferior pubic rami fractures with extension into the pubic body, interval healing in comparison to 03/03/2024imaging studies. Pelvic ring maintained. Sacral ala fracture better appreciated on previous CT imaging from 03/03/2024. ASSESSMENT / PLAN # Right closed LC I pelvic ring injury with right sacral ala fracture, superior/inferior pubic ramifractures # Status post ground level fall on 03/02/24 # Osteoporosis PLAN We reviewed interval progress, radiographs, and plan for Ms. Leon. Plan of care previously reviewed with Dr. Edwards. Radiographs reviewed in detail with the patient and her son. I am pleased to hear the progress she continues to make following her injury. Her pelvic ring injury is stable in nature and I recommend she continue to advance activities as tolerated using pain as a guide. I discussed with her that she may require the use of her walker for several weeks sometimes even months after a pelvic fracture. She should continue to work with physical therapy in the outpatient setting to improve mobility, strength, overall endurance, etc.. She should notify the service if she begins to have progressive worsening of pain that is debilitating in nature and we could reassess her. She expressed understanding. We will continue with the plan of care outlined below: Weight bearing: Full WBAT RLE Range of motion: Unrestricted motion RLE Advance in activities as tolerated using pain as a guide Continue use of gait aid for ambulatory assistance/fall prevention (walker, cane, etc.), wean as tolerated Pain: OTC medications, weaned from oxycodone. Ice/heat, topicals p.r.n. Bone health: Vitamin-D/calcium supplementation. Consultation with endocrinology today for fragilityfracture workup, please see signed consultation note by Dr. Tierney for further details Follow up: PRN with [facility], happy to see her back in the future if she has any concerns regarding her pelvic fractures She and her son were in understanding and agreement with this plan. All questions were welcomed andanswered. Pain assessment: 12/22; Location:Right Other (Comment) (groin) documented in this encounter Plan of Treatment Upcoming Encounters Date Type Department Care Team (Late st Contact Info) Description 05/02/2024 3:15 PM CDT Clinical Support Department of Rehabilitation Services in [address] [phone] Yobany Bateman APRN, C.N.P., D.N.P. [address] [place] [phone] Antonia Raines P.T. [address] [place] [phone] 05/10/2024 1:00 PM CDT Clinical Support Department of Rehabilitation Services in [address] [phone] Yobany Bateman APRN, C.N.P., D.N.P. [address] [place] [phone] Rashaun Garcia P.T. [address] [place] [address] [phone] documented as of this encounter Visit Diagnoses Diagnosis Fracture Pelvis Other Parts Closed Initial (HCC)- Primary documented in this encounter Additional Health Concerns Assessment Noted Time PHQ-9 Depression Total Score: 0 11/02/19 14 2:53 PM CLINICAL MENTAL HEALTH COUNSELOR documented as of this encounter Care Teams Physical Metallurgist Relationship Specialty Start Date End Date Elsewhere, Pcp PCP - General Family Medicine 01/31/21 documented as of this encounter
--- OUTSIDE RECORDS SUMMARY | 2024-04-29 11:26 | XMS_ITS | Encounter Summary ---
Author Organization [facility] Address [address] [place] [address] Care Team Providers Care Manufacturing Engineer Machining Name Role Phone Elsewhere, Pcp Primary Care Provider Unavailabl e Reason for Visit * Reason Comments Fall Hip Injury Encounter Details Date Type Department Care Team (Latest Contact Info) Description 03/02/2024 10:47 PM CDT - 03/09/2024 2:56 PM CDT Hospital Encounter [facility], [facility], [facility], Fifth Floor [address] [place] [address] Adebayo Shepard M.D., M.P.H. [address] [place] [phone] Stacey Boone M.D. [address] [place] [address] [place] [address] Sree Zaidi M.D. [address] [place] [phone] Aries Sinha M.D. [address] [place] [phone] History Of Falling (Primary Dx); Fracture Pelvis Other Parts Closed Initial (HCC); Difficulty Walking Orthopedic Cause [R26.2]; Decline Functional Status [R53.81] Discharge Disposition: Residential Facility Social History Tobacco Use Types Packs/Day Years Used Date Smoking Tobacco: Never Smokeless Tobacco: Never Alcohol Use Standard Drinks/Week Comments Not Currently 0 (1 standard drink = 0.6 oz pur e alcohol) [facility] Utilities Answer Date Recorded In [...] How often do you attend [facility] or hindu services? More than 4 times per year 09/27/2022 Do you belong to any clubs o r organizations such as holiness groups, unions, fraternal or athletic groups, or [...] and heating? Not hard at all 09/27/2022 [facility] - [...] PM CDT DISCHARGE SUMMARY BRIEF OVERVIEW Hospital: [facility] Discharge Provider: Aries Sinha M.D. Primary Team: [facility] Trauma Primary Care Providers: Elsewhere, Pcp (General) No address on file Admission Date: 03/02/2024 Discharge Date: 03/09/24 PRINCIPAL DIAGNOSIS History Of Falling SECONDARY DIAGNOSES Principal Problem: History Of Falling Active Problems: Arthritis Rheumatoid (HCC) Vertigo Vertigo Benign Paroxysmal Positional Bilateral Osteoporosis Fracture Pelvis Other Parts Closed Initial (HCC) Neuropathy Peripheral Mononeuropathy Lower Limb Right Hemorrhage Lesion Pancreas Failure Renal Acute (Acute Kidney Injury) ([facility]) Resolved Problems: * No resolved hospital problems. * DISCHARGE DISPOSITION Residential Facility [3] ACTIVE ISSUES REQUIRING FOLLOW UP [...] regarding bone health optimization [facility]. If you have any questions or to make/verify appointments - you may contact Dr. Edwards's service at [phone] during business hours For emergent problems - the service may be contacted by calling the [facility] power ballast machine operator [phone] (asking for Dr. Edwards's service) OTHER INFORMATION [...] clinic for diagnosis and management by an band sewer to help prevent fractures in the future. [...] was admitted to [facility] for management of their trauma-related injuries. After [...] therapy was consulted to assist with mobilization. Water Pollution Scientist was also consulted to assist with possible [...] CONSULT TO CARE MANAGEMENT IP CONSULT TO RESTAURANT CREW LINOLEUM FLOOR INSTALLER IP CONSULT TO POOL TABLE OPERATOR WOUND CARE CONDITION AT DISCHARGE stable Discharge [...] for indolent pancreatic tumor Francisco Bridges PGY-3 [facility] [phone] documented in this encounter Discharge Instructions * Discharge Instructions* Tim London - 03/03/2024 7:41 AM CDT You were discharged from the [facility] Trauma Service. Please identify this service name [...] through Care Everywhere. * Acetaminophen (By mouth) (Danish) * Ondansetron (By mouth, Into the mouth) (Danish) * Oxycodone, Rapid Release (By mouth) (Danish) * Diclofenac (On the skin) (Danish) * Lidocaine (On the skin) (Danish) * Polyethylene Glycol 3350 (By mouth) (Danish) * Simethicone (By mouth) (Danish) * Laxative, Stimulant Combination (By mouth) (Danish) documented in this encounter Medications at Time [...] HOLD medication until restarted by PCP 03/09/2024 MULTIVITAMIN ORAL Take 1 tablet by mouth daily. 10/25/2010 omeprazole (PriLOSEC) [address] capsule Take 1 capsule by mouth daily. 05/20/2019 oxyCODONE (Roxicodone) 5 mg immediate release tabletIndications:Acut e Pain Exception Take 1 tablet (5 mg total) by mouth every 4 (four) hours as needed for severe pain or score 7-10 of 10 (for breakthrough pain) for up to 14 days Indication: Acute Pain Exception. 20 tablet 03/09/2024 03/23/2024 sennosides-docusate sodium (Senokot-S) 8.6-50 mg per tablet Take 1 tablet by mouth 2 (two) times a day for 28 days. 54 tablet 03/08/2024 04/05/2024 simethicone 80 mg chewable tablet Chew 1 tablet (80 mg total) 4 (four) times a day as needed for flatulence (flatulence) for up to 14 days. 20 tablet 03/08/2024 03/22/2024 diclofenac sodium (Voltaren) 1 % gel Apply 4 g topically 4 (four) times a day. Apply to painful areas. Do not place over areas of broken skin 20 g 03/08/2024 04/05/2024 dorzolamide-timoloL (COSOPT) 22.3-6.8 mg/mL ophthalmic solution Administer 1 drop into the right eye daily. 04/05/2024 fluorouraciL (EFUDEX) 5 % cream Apply topically twice daily for 46 weeks 40 g 12/31/2023 04/05/2024 lidocaine (Salonpas, lidocaine,) 4 % adhesive patch,medicated Place 1 patch on the skin every 12 (twelve) hours as needed (pain) for up to 28 days. 28 patch 03/08/2024 04/05/2024 ondansetron ODT (Zofran-ODT) 4 mg disintegrating tablet Dissolve 1 tablet (4 mg total) in the mouth every 8 (eight) hours as needed for nausea or vomiting. 20 tablet 03/08/2024 04/05/2024 polyethylene glycol (Miralax) 17 gram powder packet Take 1 packet (17 g total) by mouth daily for 27 days. Dissolve each 17 g dose in 240 mLs (8 ounces) of beverage. 27 packet 03/09/2024 04/05/2024 documented as of this encounter Progress Notes * Brayan Moffett L.G.S.W., M.S.W. - 03/09/2024 12:27 PM CDT SUBJECTIVE Social Work engaged in record review and communicated with interdisciplinary team prior to meeting with patient to provide updates and discuss discharge plans. Patient was sleeping but roused to engage in conversation. Mrs. Leon was informed that [facility] facility could not accept today (maybe tomorrow). Social Work reminded patient about hospital's Broad Referral; she expressed understanding but indicated that she prefers to be somewhere between [place] and [place] (to be closer to family and home). She also became tearful remembering bad experience she had with her father's stay at [facility] (but was agreeable, in the end, to [...] for ongoing discharge needs. A list of detention facility swing bed/MPACoptions (that patient/family geographically resides or requests) has been provided to and reviewed with patient/family. Disclaimers: Medicare/commercial Insurance: Patient and/or family/responsible green party were informed of contracted providers with [...] Selected Services Address Phone Fax Patient Preferred [facility] [address] [place] [address] [phone] -- Contact: Admissions Transportation oxygen: No oxygen needed. NURSING: - Complete documentation in the Discharge Navigator including Nursing Report Info and Facility/NextLevel of Care Info - Contact facility to give report on day of discharge: [phone] - Send After Visit Summary and required packet of dismissal information with patient, including advance directive. - Facility indicated that any orders or DC paperwork can be faxed to [phone]). PRIMARY SERVICE: - Provider to Provider call is not required. - Provide written prescriptions for all narcotics. After Visit Summary to Include: - All discharge medications include dosage, times for administration, diagnosis, and stop date. - Ongoing care - wound care, infection precautions and phone numbers to call. SOCIAL WORK: -Pre-admission screen has been completed: [id number] -Patient said her son has a wheelchair van and can provide transportation, with appropriate advancenotice (at least an hour). -Social Work will assist with transition planning and will offer supportive visits as necessary during remainder of patient's hospital stay. Kwesi Arnett, M.S.W. 03/09/2024 * Nelly Llanes M.A., O.T., [facility] - 03/09/2024 9:17 AM CDT Occupational Therapy Acute Hospital Inpatient Treatment SUBJECTIVE Patient's Name: Kathryn Leon Referring/Attending Provider: Aries Sinha M.D. Reason for Referral: Occupational Therapy Evaluation and Treatment History of Present Illness: Kathryn Leon is a 89 y.o. female who was admitted to [facility] in [place] on 03/02/2024 for Fracture Pelvis Other Parts [...] and O2 flow: Room air Outcome Measures: [facility] Inpatient Short Form: Putting on and taking [...] at or below 17 Clinicians answer the [facility] Inpatient Short Form based on observed patient [...] Bowers M.T.S. - 03/09/2024 9:00 AM CDT [facility] Spiritual Care Progress Note Patient: Kathryn Leon Age:89 y.o. Location: [address]- Reason(s) for encounter: Spiritual Care contact to introduce spiritual care service and assess for potential spiritual care needs. Spiritual Care contact for ongoing spiritual care. Spiritual Care contact per Kathryn's request. Spiritual Care contact for hindu rites/sacramental encounter. Summary: I was able to [...] administered with blessing and prayer Spiritual Assessment Hoahaoism Identification / Spiritual Practices: Kathryn is a Yarsanism Coping and support: Kathryn shared that she [...] current medical condition and life stage. Facilitated hindu/spiritual practices (prayer, blessing, sacred texts, hindu item) with theaim to reinforce patient's spiritual [...] requested. Chaplains can be contacted by paging [phone] ([place]) or [phone] (Faith). * Renée Brannon M.D. - 03/09/2024 6:40 [...] CONSULT TO CARE MANAGEMENT IP CONSULT TO RESTAURANT CREW LINOLEUM FLOOR INSTALLER IP CONSULT TO POOL TABLE OPERATOR WOUND CARE ASSESSMENT / PLAN 03/09: Ms. Leon is doing well overall. She has been mobilizing well with PT/OT and is meeting hermobility goals. She will discharge to [facility] today pending availability. Today's Plan - continue mobilizing with physical therapy - continue to hold hypertension medications Dispo: [facility] discharge #1 History Of Falling - TTS: completed 03/03 - SAS: completed 03/03 - Care management consulted for disposition assistance - PT/OT consulted for safety evaluation #2 Fracture Pelvis Other Parts Closed Initial (HCC) Acute comminuted and displaced right superior, inferior, and pubic body fractures - OTS-3 (44621) consulted; not following - OTS-3 defers admission [...] mg tablet; not started #8 Arthritis Rheumatoid ([facility]) - Holding NSAIDS #3 Hypertension - Discontinue orthostatic vital measurements - No longer orthostatic with appropriate fluid resuscitation #9 Lesion Pancreas Incidental finding on CT imagin mm hypervascular lesion in the pancreatic head (), unchanged since CT 02/03/2007 - No follow-up necessary given no changes in the last 17 years #3 Failure Renal Acute (Acute Kidney Injury) ([facility]) Creatinine on admission 1.3 versus baseline 0.9 - Avoid nephrotoxic agents including NSAIDs - Hold the following medications given decreased renal functioning: -- Losartan (COZAAR) 25 mg tablet; not started -- Hydrochlorothiazide (HYDRODIURIL) 12.5 mg tablet; held If you have any questions or concerns regarding the cares of Ms. Leon, please contact Trauma Surgery at [phone]. * Danielito Lira P.T., D.P.T. - 03/08/2024 11:10 AM CDT Physical Therapy Inpatient Treatment SUBJECTIVE Patient's Name: Kathryn Leon Referring/Attending Provider: Aries Sinha M.D. Reason for Referral: Physical Therapy Evaluate and Treat History of Present Illness: Kathryn Leon is a 89 y.o. female who was admitted to [facility] in [place] on 03/02/2024 for Fracture Pelvis Other Parts [...] 3-5 steps with a railing?: A Lot [facility] Basic Mobility (V.2) Raw Score: 15 [facility] Basic Mobility (V.2) Standardized Score: 36.97 Interpretation: Based on scoring guidelines using the raw score value: Those going to home had an average score at or above 18 Those going to facility had an average score at or below 17 Clinicians answer the [facility] Inpatient Short Form based on observed patient [...] following coordination of care occurred with the certified midwife/Caregiver Present: No Patient was left in bedside [...] Time (min): 24 min Danielito Lira P.T., D.P.T. * Fercho Westfall Emilio - 03/08/2024 10:00 AM CDT [facility] Spiritual Care Progress Note Patient: Kathryn Leon Age:89 y.o. Location: [id number] Reason(s) for encounter: Spiritual Care contact to introduce spiritual care service and assess for potential spiritual care needs. Summary: I was able to meet with Kathryn Leon today. She fell at home and broke her pelvis. She requested the Sacrament of Holy communion. She needs the low Gluten hosts. Spiritual Assessment Hoahaoism Identification / Spiritual Practices: Yarsanism. Mrs. Leon lives in [place] and attends mass regularly and is involved in the ministry [...] current medical condition and life stage. Facilitated hindu/spiritual practices (prayer, blessing, sacred texts, hindu item) with theaim to reinforce patient's spiritual wellness and connection with source of sacredness. Spiritual Care outcomes: Patient/family was appreciative of spiritual care support. Spiritual Care Plan / Recommendations: Will remain available for spiritual care as needed or requested. Chaplains can be contacted by paging [phone] ([place]) or [phone] (Faith). * Nelly Llanes M.A., O.T., [facility] - 03/08/2024 9:19 AM CDT Occupational Therapy [facility] Inpatient Treatment SUBJECTIVE Patient's Name: Kathryn Leon Referring/Attending Provider: Aries Sinha M.D. Reason for Referral: Occupational Therapy Evaluation and Treatment History of Present Illness: Kathryn Leon is a 89 y.o. female who was admitted to [facility] in [place] on 03/02/2024 for Fracture Pelvis Other Parts [...] and O2 flow: Room air Outcome Measures: [facility] Inpatient Short Form: Putting on and taking [...] at or below 17 Clinicians answer the [facility] Inpatient Short Form based on observed patient [...] Yanet Llanes M.A., O.T., BCPR * Antonia Driscoll, Alek.G.SGurdeep., M.S.W. - 03/08/2024 8:47 AM CDT SUBJECTIVE Social Work communicated with Service, Nursing, and [facility] regarding discharge with short term rehab to TCU. Social Work inquired regarding patient's insurance coverage for transportation. OBJECTIVE Patient was pended for admission to [facility] this day. Anticipated discharge at [facility] is no longer anticipated to occur. Patient is pended for admission to [facility] for 03/09/24. ASSESSMENT / PLAN ASSESSMENT Patient is medically ready and awaiting discharge to short term rehab. PLAN Patient anticipates discharging to [facility]. Social Work will continue to follow to assist with discharge needs. Social Work will continue to follow to provide support. Kwesi Dooley, M.S.W. 03/08/24 * Antonia Driscoll L.G.S.W., M.S.W. - 03/08/2024 8:34 AM CDT SUBJECTIVE Social Work met with patient in her hospital room and discussed discharge planning and patient's recent loss of her this month. Social Work communicated with Service, [facility], and [facility]. OBJECTIVE Patient is medically ready for discharge to short term rehab. ASSESSMENT / PLAN ASSESSMENT Patient is awaiting placement, hopefully in [facility]. She is pended for consideration of admission on 03/09/24. She is agreeable to referral being sent to [facility] in [place], [place]. PLAN -Patient desires discharge to short term rehab with strong preference for [facility]. -Patient's son can provide wheelchair transportation including [...] OBJECTIVE I/O 03/06 0701 03/07 0700 03/07 0701 03/08 0700 P.O. 1040 2380 Total Intake(mL/kg) 1040 [...] CONSULT TO CARE MANAGEMENT IP CONSULT TO RESTAURANT CREW LINOLEUM FLOOR INSTALLER IP CONSULT TO POOL TABLE OPERATOR WOUND CARE ASSESSMENT / PLAN 03/08: Ms. Leon is doing well overall. She has been mobilizing well with PT/OT and is meeting hermobility goals. She continues to demonstrate stable hyponatremia and elevated BUN/creatinine. Today's Plan - continue mobilizing with physical therapy - continue to hold hypertension medications Dispo: [facility] discharge tentatively tomorrow #1 History Of Falling - TTS: completed 03/03 - SAS: completed 03/03 - Care management consulted for disposition assistance - PT/OT consulted for safety evaluation #2 Fracture Pelvis Other Parts Closed Initial (HCC) Acute comminuted and displaced right superior, inferior, and pubic body fractures - OTS-3 (24611) consulted; not following - OTS-3 defers admission [...] Ms. Leon, please contact Trauma Surgery at [phone]. * Juan Cohen M.D. - 03/07/2024 5:00 PM CDT Geriatrics Consults Supervisory Note I saw and evaluated Mrs. Kathryn Leno on rounds today with our Geriatrics team, [...] about patient's nutritional care please contact pager [phone] on weekdays or [phone] on weekends/holidays. NUTRITION ASSESSMENT: Ms. Leon is [...] care everywhere) ESTIMATED NEEDS: Total Calorie Needs: 6666-1107 calories/day Method to Estimate Energy Needs: kcal/kg [...] to monitor: Meals/Supplement Intake, Weight Status * Jessie Kidd P.A.-C. - 03/07/2024 1:55 PM CDT Geriatrics [...] / PLAN Ms. Leon is hospitalized on [facility] Trauma for evaluation and management of: History [...] service on 03/03/2024 after presenting to the [facility] Emergency Department (ED) on 03/02/2024 s/p [...] from the Medicine 1 service to the [facility] service and Geriatric Medicine was consulted on 03/03. No prodromal symptoms prior to the fall. Hospitalization has been complicated by code blue activation on 03/06/2024 for an episode of vasovagal syncope while straining to have a bowel movement. She is planning to discharge to a SNF for rehab. What Matters Most to Ms. Leon: quilting, family, gardening, holiness community Mentation: no cognitive impairment at baseline; [...] IR embolization Anticipated disposition plan: uncertain, likely Residential Facility for subacute rehab SIGN OFF RECOMMENDATIONS: [...] was discussed with Dr. Harman Cohen, HIM strategy execution consultant. I personally spent a total of 35 minutes providing and coordinating care today. Thank you for the opportunity to care for this patient. We will sign off at this time. Please page the Geriatrics Consult Service at [phone] with any questions or concerns. * Nelly Llanes M.A., O.T., [facility] - 03/07/2024 1:55 PM CDT Occupational Therapy Acute Hospital Inpatient Treatment SUBJECTIVE Patient's Name: Kathryn Leon Referring/Attending Provider: Aries Sinha M.D. Reason for Referral: Occupational Therapy Evaluation and Treatment History of Present Illness: Kathryn Leon is a 89 y.o. female who was admitted to [facility] in [place] on 03/02/2024 for Fracture Pelvis Other Parts [...] at or below 17 Clinicians answer the [facility] Inpatient Short Form based on observed patient [...] PM CDT SUBJECTIVE Social Work communicated with [facility] regarding likelihood of admission. Patient is the only pended patient for consideration of admission on 03/08/24. OBJECTIVE Referrals sent Service Provider Request Status Selected Services Address Phone Fax Patient Preferred [facility] Pending - Request Sent N/A [address] [address] [phone] -- Phone Fax Patient Preferred [facility] Pending - Request Sent N/A [address] [facility] [address] [phone] -- ASSESSMENT / PLAN ASSESSMENT Patient is awaiting placement, hopefully in [facility]. She is pended and the only pended patient for consideration of admission on 03/08/24. PLAN -Patient desires discharge to short term rehab. -Transportation needs will be addressed closer to time of discharge. -Social Work will assist with transition planning and will offer supportive visits as necessary during remainder of patient's hospital stay. Kwesi Dooley, M.S.W. 03/07/24 * Danielito Lira P.T., Suhas.P.T. - 03/07/2024 9:05 AM CDT Physical Therapy Inpatient Treatment SUBJECTIVE Patient's Name: Kathryn Leon Referring/Attending Provider: Aries Sinha M.D. Reason for Referral: Physical Therapy Evaluate and Treat History of Present Illness: Kathryn Leon is a 89 y.o. female who was admitted to [facility] in [place] on 03/02/2024 for Fracture Pelvis Other Parts [...] following ambulation: 150/45 (70) mmHg Outcome Measures: [facility] Inpatient Short Form: -[facility] Basic Mobility (V.2) How much help from [...] 3-5 steps with a railing?: A Lot -[facility] Basic Mobility (V.2) Raw Score: 15 -[facility] Basic Mobility (V.2) Standardized Score: 36.97 Interpretation: Based on scoring guidelines using the raw score value: Those going to home had an average score at or above 18 Those going to facility had an average score at or below 17 Clinicians answer the [facility] Inpatient Short Form based on observed patient [...] following coordination of care occurred with the certified midwife/Caregiver Present: No Patient was left in bedside [...] a shower. OBJECTIVE I/O 03/05 0703/06 0703/06 0701 03/07 0700 03/07 0703/08 0700 P.O. 1900 1040 Total Intake(mL/kg) [...] CONSULT TO CARE MANAGEMENT IP CONSULT TO RESTAURANT CREW LINOLEUM FLOOR INSTALLER IP CONSULT TO POOL TABLE OPERATOR WOUND CARE ASSESSMENT / PLAN 03/06: Ms. [...] for pelvic hematoma and RODOLFO respectively Dispo: [facility] referrals sent #1 History Of Falling - TTS: completed 03/03 - SAS: completed 03/03 - Care management consulted for disposition assistance - PT/OT consulted for safety evaluation #2 Fracture Pelvis Other Parts Closed Initial (HCC) Acute comminuted and displaced right superior, inferior, and pubic body fractures - OTS-3 (53100) consulted; not following - OTS-3 defers admission [...] pancreatic head (3/274), unchanged since CT 02/03/2007 - No follow-up [...] Ms. Leon, please contact Trauma Surgery at [phone]. * Renée Brannon M.D. - 03/06/2024 8:17 AM CDT Trauma Surgery Progress Note Admission Date/Time: 03/02/2024 10:47 PM Trauma Level: Green Mechanism of Injury: Fall down stairs; approximately 2 steps. HPI: Ms. Leon is a 89 y.o. female who and acute comminuted displaced right superior pubic rami fracture right inferior pubic rami fracture and intramuscular hematoma due to ground level fall. SUBJECTIVE SERVICES CLERK called yesterday due to syncopal event while patient was having a BM. She reportedly lost consciousness for approx. 2 mins. She recovered without incident and SERVICES CLERK team determined this was most likely due [...] x Lab Review: Recent Labs 03/06/24 0725 03/05/249 03/05/24 1036 HGB 9.4 L 9.9 L 9.8 L HCT 28.1 L 28.2 L 29.3 L PLT 157 151 L 146 L WBC 6.7 9.0 7.3 No results for input(s): INR, PT, APTT in the last 48 hours. Recent Labs 03/06/24 0703/05/24234803/05/24 1036 NA 131 L 128 L 131 [...] CONSULT TO CARE MANAGEMENT IP CONSULT TO [employer] LINOLEUM FLOOR INSTALLER IP CONSULT TO POOL TABLE OPERATOR WOUND CARE ASSESSMENT / PLAN 03/06: Ms. [...] for pelvic hematoma and RODOLFO respectively Dispo: [facility] referrals sent. #1 History Of Falling - TTS: completed 03/03 - SAS: completed 03/03 - Care management consulted for disposition assistance - PT/OT consulted for safety evaluation #2 Fracture Pelvis Other Parts Closed Initial (HCC) Acute comminuted and displaced right superior, inferior, and pubic body fractures - OTS-3 (71965) consulted; not following - OTS-3 defers admission [...] Ms. Leon, please contact Trauma Surgery at [phone]. * Jessie Kidd P.A.-C. - 03/06/2024 7:53 [...] PLAN Ms. Leon is hospitalized on [facility] Trauma for evaluation and management of: [...] service on 03/03/2024 after presenting to the [facility] Emergency Department (ED) on 03/02/2024 s/p [...] from the Medicine 1 service to the [facility] service and Geriatric Medicine was consulted on 03/03. No prodromal symptoms prior to the fall. Hospitalization has been complicated by code blue activation on 03/06/2024 for an episode of vasovagal syncope while straining to have a bowel movement. She is planning to discharge to a SNF for rehab. What Matters Most to Ms. Leon: quilting, family, gardening, holiness community Mentation: no cognitive impairment at baseline; [...] IR embolization Anticipated disposition plan: uncertain, likely Residential Facility for subacute rehab NEW RECOMMENDATIONS: Syncopal [...] was discussed with Dr. Anastacio Bejarano, HIM strategy execution consultant. I personally spent a total of 50 minutes providing and coordinating care today. Thank you for the opportunity to care for this patient. We will continue to follow with you. Pleasepage the Geriatrics Consult Service at [phone] with any questions or concerns. * Yohan Santana L.R.T., SERVICES CLERK-COMMUNITY SERVICE COORDINATOR - 03/05/2024 11:57 PM CDT Responded to Code Blue, patient is awake on Room Air, Code downgraded to an SERVICES CLERK, patient had no respiratory concerns at this time Electronically signed by Yohan Santana L.R.T., SERVICES CLERK-COMMUNITY SERVICE COORDINATOR at 03/06/2024 12:11 AM CDT * Danielito Lira P.T., JellyP.Marleni - 03/05/2024 1:57 PM CDT Physical Therapy Inpatient Treatment SUBJECTIVE Patient's Name: Kathryn Leon Referring/Attending Provider: Sree Zaidi M.D. Reason for Referral: Physical Therapy Evaluate and Treat History of Present Illness: Kathryn Leon is a 89 y.o. female who was admitted to [facility] in [place] on 03/02/2024 for Fracture Pelvis Other Parts [...] Climbing 3-5 steps with a railing?: Total -[facility] Basic Mobility (V.2) Raw Score: 14 -[facility] Basic Mobility (V.2) Standardized Score: 35.55 Interpretation: Based on scoring guidelines using the raw score value: Those going to home had an average score at or above 18 Those going to facility had an average score at or below 17 Clinicians answer the -[facility] Inpatient Short Form based on observed patient [...] following coordination of care occurred with the certified midwife/Caregiver Present: Son Patient was left in bedside [...] / PLAN Ms. Leon is hospitalized on [facility] Trauma for evaluation and management of: History [...] service on 03/03/2024 after presenting to the [facility] Emergency Department (ED) on 03/02/2024 s/p [...] from the Medicine 1 service to the [facility] service and Geriatric Medicine was consulted on 03/03. No prodromal symptoms prior to the fall. She is planning to discharge to a SNF for rehab. What Matters Most to Ms. Leon: quilting, family, gardening, holiness community Mentation: no cognitive impairment at baseline; [...] IR embolization Anticipated disposition plan: uncertain, likely Residential Facility for subacute rehab RECOMMENDATIONS: Trend BMP [...] was discussed with Dr. Anastacio Bejarano, HIM strategy execution consultant. I personally spent a total of 35 minutes providing and coordinating care today. Thank you for the opportunity to care for this patient. We will continue to follow with you. If Mrs. Leon remains stable on 03/06 we will consider signing off. Please page the Geriatrics Consult Service at [phone] with any questions or concerns. * Melisa [...] CONSULT TO CARE MANAGEMENT IP CONSULT TO [employer]W LINOLEUM FLOOR INSTALLER IP CONSULT TO [facility] WOUND CARE ASSESSMENT / PLAN 03/05: Patient [...] lisinopril until PCP follow up. Referrals to [facility] have been sent for discharge. Today's Plan - 03/06 if creatinine ok, consider starting her HCTZ and holding her lisinopril until PCP follow up - continue mobilizing with physical therapy - continue to hold hypertension medications in light of orthostatic hypotension - trend hemoglobin, creatinine for pelvic hematoma and RODOLFO respectively - monitor for bowel movement. Dispo: [facility] referrals sent. #1 History Of Falling - TTS: completed 03/03 - SAS: completed 03/03 - Care management consulted for disposition assistance - PT/OT consulted for safety evaluation #2 Fracture Pelvis Other Parts Closed Initial (HCC) Acute comminuted and displaced right superior, inferior, and pubic body fractures - OTS-3 (17351) consulted; not following - OTS-3 defers admission [...] Ms. Leon, please contact Trauma Surgery at [phone]. * Sallie Atkinson R.N., C.W.C.N. - 03/05/2024 9:04 AM CDT [facility] Wound RN consulted to assess Kathryn Leon [...] Orientation: (c) Right *Shape Irregular *Wound Bed Purple;[place];Red Tissue Exposed None Odor None *Exudate Amount None Tonya-wound Assessment Ecchymotic;Edema Treatments Cleansed Periwound Treatment Cleansed (Comment) Wound Cleansed with Wound cleanser *Primary Dressing Silver;Foam *Primary Dressing Frequency of Change Every third day & PRN Primary Dressing Changed New Primary Dressing Status Clean;Dry;Intact Changed by Wound hanging flags decorator Wound 03/05/24 Cancer Lesion/Malignant Pretibial Right Date [...] nursing. They agree to the plan. The [facility] RN will sign-off. Please place a wound care consult for any new concerns. * Sree Zaidi M.D. - 03/04/2024 6:25 PM CDT I saw and examined the patient along with the resident/LOOM FIXER HELPER-PA team and agree with the findings and [...] appropriate for discharge. Sree Zaidi MD, FACS Branch Rental Manager security solutions architect, [facility] [employer] Division of Trauma, Critical Care and General Surgery; Department of Surgery (Pager) (office) fax [email or web address] * Melisa Erwin M.D. - 03/04/2024 3:54 [...] bed. OBJECTIVE I/O 03/02 0703/03 0703/03 0703/04 0703/05 0700 P.O. 360 530 Maintenance [...] CONSULT TO CARE MANAGEMENT IP CONSULT TO RESTA[employer] CREW LINOLEUM FLOOR INSTALLER ASSESSMENT / PLAN 03/04: Patient is doing [...] Mepilex to right elbow superficial laceration. Dispo: [facility] referrals sent. #1 History Of Falling - TTS: completed 03/03 - SAS: completed 03/03 - Care management consulted for disposition assistance - PT/OT consulted for safety evaluation #2 Fracture Pelvis Other Parts Closed Initial (HCC) Acute comminuted and displaced right superior, inferior, and pubic body fractures - OTS-3 (05969) consulted; not following - OTS-3 defers admission [...] #3 Failure Renal Acute (Acute Kidney Injury) ([facility]) Creatinine on admission 1.3 versus baseline 0.9 - Avoid nephrotoxic agents including NSAIDs - Hold the following medications given decreased renal functioning: -- Losartan (COZAAR) 25 mg tablet; not started -- Hydrochlorothiazide (HYDRODIURIL) 12.5 mg tablet; not started If you have any questions or concerns regarding the cares of Ms. Leon, please contact Trauma Surgery at [phone]. * Danielito Lira PDannT., D.P.T. - 03/04/2024 12:47 PM CDT Physical Therapy Inpatient Treatment SUBJECTIVE Patient's Name: Kathryn Leon Referring/Attending Provider: Sree Zaidi M.D. Reason for Referral: Physical Therapy Evaluate and Treat History of Present Illness: Kathrny Leon is a 89 y.o. female who was admitted to [facility] in [place] on 03/02/2024 for Fracture Pelvis Other Parts [...] Blood Pressure: 151/62 (85) mmHg Outcome Measures: -[facility] Inpatient Short Form: -[facility] Basic Mobility (V.2) How much help from [...] Climbing 3-5 steps with a railing?: Total -[facility] Basic Mobility (V.2) Raw Score: 14 -[facility] Basic Mobility (V.2) Standardized Score: 35.55 Interpretation: Based on scoring guidelines using the raw score value: Those going to home had an average score at or above 18 Those going to facility had an average score at or below 17 Clinicians answer the -[facility] Inpatient Short Form based on observed patient [...] following coordination of care occurred with the certified midwife/Caregiver Present: No Patient was left in bedside [...] min Danielito Lira P.T., D.P.T. * Aries Reynoso, PharmDannD., R.Ph., [facility] - 03/04/2024 10:35 AM CDT Pharmacist Progress Note Reason for admission: Fracture Pelvis Other Parts Closed Initial ([facility]) [S32.89XA] PMH: Patient Active Problem List Diagnosis Arthritis Rheumatoid ([facility]) Vertigo Vertigo Benign Paroxysmal Positional Bilateral Osteoporosis Fracture Pelvis Other Parts Closed Initial ([facility]) Loss Hearing Sensorineural Bilateral Gastroesophageal Reflux Disease NOS Neuropathy Peripheral Mononeuropathy Lower Limb Right History Of Falling Hemorrhage Lesion Pancreas Failure Renal Acute (Acute Kidney Injury) ([facility]) OBJECTIVE Home medications: Held: ASA, Alendronate, colchicine, [...] patient's care. Please feel free to page [phone] or [phone] after 5 PM and on weekends with additional questions. Renee Rios P.A.-C. M.S. * Jessie Kidd P.A.-C. - 03/04/2024 7:38 [...] PLAN Ms. Leon is hospitalized on [facility] Trauma for evaluation and management of: [...] service on 03/03/2024 after presenting to the [facility] Emergency Department (ED) on 03/02/2024 s/p [...] from the Medicine 1 service to the [facility] service and Geriatric Medicine was consulted on 03/03. No prodromal symptoms prior to the fall. What Matters Most to Ms. Leon: quilting, family, gardening, holiness community Mentation: no cognitive impairment at baseline; [...] IR embolization Anticipated disposition plan: uncertain, likely Residential Facility for subacute rehab RECOMMENDATIONS: Trend BMP [...] was discussed with Dr. Anastacio Bejarano, HIM strategy execution consultant. I personally spent a total of 35 minutes providing and coordinating care today. Thank you for the opportunity to care for this patient. We will continue to follow with you. If Mrs. Leon remains stable on 03/05 we will consider signing off. Please page the Geriatrics Consult Service at [phone] with any questions or concerns. * Rene Geronimo APRN, C.N.P., M.S.N. - 03/03/2024 5:47 PM CDT Trauma Screening and Brief Intervention Screen applied: Audit-C Was intervention required: no Intervention(s) discussed with patient: Not indicated Intervention(s) patient will follow through on: Not indicated Additional referrals made: none Time Spent: Billing codes: 91415 (15-30 mins SAS1) and 16542 (> 30 mins, SAS2) * Rene Geronimo, [...] Adult 12/28/2001, 07/30/2006 HepB (discontinued) adolescent/high risk infant 12/28/2001, 01/31/2002, 06/29/2006 Hib (PRP-T) (ACTHIB, HIBERIX) [...] & Screen Expiration 03/05/2024 23:59 Testing Location [place] CBC with Differential, Blood Collection Time: 03/02/24 [...] spinal findings. Findings were discussed with See Mcfalrand M.D. (Pager [phone]) on 03/03/2024 2:19 AM Incidental Findings: 10 [...] inferior, and pubic body fractures - OTS-3 (49455) consulted; not following - OTS-3 defers admission [...] #3 Failure Renal Acute (Acute Kidney Injury) ([facility]) Creatinine on admission 1.3 versus baseline 0.9 [...] Ms. Leon, please contact Trauma Surgery at [phone]. * Mimi Damico B.M.B.S. - 03/03/2024 6:02 [...] will be reviewed by the Medicine 1 Branch Rental Manager this morning. Please contact the [facility] 1 service pager if there are any concerns. Electronically signed by: Elaine Arceo 03/03/24 6:03 AM CDT documented in this encounter H&P Notes * Judit Mccray M.D. 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 Accordingto patient, she underwent spinal fusion [...] No evidence of disorganized thinking. Reliable history decision support analyst. DIAGNOSTICS EXAM: DX HIP AND PELVIS RIGHT [...] mm hypervascular lesion in the pancreatic head (274), unchanged since CT 02/03/2007. Pancreatic atrophy. Normal [...] / PLAN Ms. Leon is hospitalized on [facility] Medicine 1 ([facility]) for evaluation and management of right [...] Code blue activated for syncope, converted to SERVICES CLERK. Etiology of patient's syncope most consistent with [...] code was supervised by Dr. Aditya Grimes (strategy execution consultant physician). Critical care time 30 minutes. This is time spent at this critically ill patient's bedside activelyinvolved in patient care as well as the coordination of care and discussions with the patient's family. This does not include any procedural time which has been billed separately. * Cristopher Bowers M.T.S. - 03/04/2024 3:05 PM CDTAssociated Order(s): IP CONSULT TO RESTAURANT CREW LINOLEUM FLOOR INSTALLER [facility] Spiritual Care Consult Note Patient: Kathryn Leon Age:89 y.o. Location: [id number] Reason(s) for encounter: Spiritual Care contact to introduce spiritual care service and assess for potential spiritual care needs. Responded to Spiritual Care Consult. Spiritual Care contact for ongoing spiritual care. Spiritual Care contact per Kathryn's request. Spiritual Care contact for hindu rites/sacramental encounter. Summary: I was able to [...] administered with prayer and blessing Spiritual Assessment Hoahaoism Identification / Spiritual Practices: Kathryn Lu is a Yarsanism Coping and support: Family was present and [...] current medical condition and life stage. Facilitated hindu/spiritual practices (prayer, blessing, sacred texts, hindu item) with theaim to reinforce patient's spiritual [...] requested. Chaplains can be contacted by paging [phone] ([place]) or [phone] ([facility]). * Brayan Moffett L.G.SGurdeep., M.S.W. - 03/04/2024 11:30 AM CDTAssociated Order(s): IP CONSULT TO CARE MANAGEMENT Psychosocial Assessment SUBJECTIVE DEMOGRAPHIC INFORMATION Referral Source: Nursing Referral Reason: Early Screen Discharge Person(s) present during interview: Patient Previous Psychosocial Assessment: Yes, Date: 05/13/2019, completed by Tawny Rogers LSW. Primary care clinic and provider: [facility] / Harman Aldrich CNP They were [...] 7 grandchildren, and 4 great-grandchildren. Spirituality / Oriental Orthodox / Culture: Cheondoism, she shared (Spiritual Care consult subsequently placed, [...] patient said she prefers to go to [facility] (referral subsequently sent--see PLAN section below), for [...] were intact. INTERVENTIONS -Education regarding role of geriatric social work professor in a hospital setting -Psychosocial Assessment -Empathetic listening and validation in a strengths-based, solutions-focused, trauma-informed approach -Patient respectfully declined [facility] Trauma Folder. -Patient accepted Resources for Older People & Their Families booklet (which includes Senior Linkage Line info). -Patient was informed about Patient Library, Patient Education channels, Art at the Bedside kits, and Spiritual Care. She requested a visit (communion) from Spiritual Care team. PLAN -Patient expressed interest in having a referral sent to [facility] facility (subsequently done--see below). -Transportation needs will be addressed closer to time of discharge. -Social Work will assist with transition planning and will offer supportive visits as necessary during remainder of patient's hospital stay. Anticipated barriers to the transition of care/plan: none Destination - Admitted Since 03/02/2024 Service Provider Request Status Selected Services Address Phone Fax Patient Preferred [facility] Pending - Request Sent N/A [address] [address] [phone] -- --A [facility] (that they geographically reside or requested) has been provided to and reviewed with patient. Disclaimers: Financial disclosure provided informing patient of our ownership and financial relationship of the [facility] beds, home health, and hospice agencies. Reviewed Medicare coverage and provided a list of options. Social Work also explained hospital's Broad Referral policy. Patient expressed understanding. Addendum (2:20): Later in the day, patient asked to have a 2nd referral sent: Phone Fax Patient Preferred [facility], [facility] Pending - Request Sent N/A 5 [facility] [id number] -- Kwesi Arnett, M.S.W. 03/04/24 * Doris Anderson O.T., O.T.D. - 03/04/2024 9:50 AM CDT Occupational Therapy [...] 89 y.o. female who was admitted to [facility] in [place] on 03/02/2024 for Fracture Pelvis Other Parts [...] Owned: Front wheeled walker Adaptive Equipment Owned: Hostess Party Sales Representative Other DME Owned: None Prior Level of [...] Vision Impairments: Impaired central vision Outcome Measures: [facility] Inpatient Short Form: Putting on and taking [...] at or below 17 Clinicians answer the [facility] Inpatient Short Form based on observed patient [...] and modification tools as needed including leg trim and burr operator and/or bed adjustments. Patient was left in [...] Time (min): 26 min Doris Anderson O.T., O.T.Jelly * Danielito Lira P.T., D.P.T. - 03/03/2024 [...] 89 y.o. female who was admitted to [facility] in [place] on 03/02/2024 for Fracture Pelvis Other Parts [...] to glaucoma Leisure Interests: Enjoys volunteering at holiness, App Partner Pain Assessment: Patient rated pain 0/10 at [...] (Requires assist to maintain balance) Outcome Measures: [facility] Inpatient Short Form: [facility] Basic Mobility (V.2) How much help from [...] Climbing 3-5 steps with a railing?: Total [facility] Basic Mobility (V.2) Raw Score: 12 [facility] Basic Mobility (V.2) Standardized Score: 32.23 Interpretation: Based on scoring guidelines using the raw score value: Those going to home had an average score at or above 18 Those going to facility had an average score at or below 17 Clinicians answer the [facility] Inpatient Short Form based on observed patient [...] the RN and Primary Service Family/Caregiver Present: [id number] Patient was left on transport cart at [...] cognitively intact, functionally independent 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 Kathryn Leon is a 89 y.o. female from [place], [place]. She is a mother of 3, grandmother of 7, great-grandmother to 4. Her of 67 years in September and she has struggled with the loss of her life partner of so many years. General (e.g. 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 Leon presented to the [...] 1 service, but was transferred to the TC Service for management given trauma requiring IR [...] delirium (completes backwards months easily). Reliable history decision support analyst. DIAGNOSTICS I have independently reviewed labs since admission. ASSESSMENT / PLAN Ms. Leon is hospitalized on [facility] Trauma for evaluation and management of: Fracture Pelvis Other Parts Closed Initial ([facility]). 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 What Matters Most to Ms. 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 Relationships/supports: son Pardeep, daughter in law Samantha, friends give rides, adventure challenge instructor once every other week Goals: walk normally again, return home Mentation: Baseline cognition: no concerns Delirium screening: CAM negative for acute delirium on exam Decision-making capacity: intact Alternate decision maker are three sons, primary contact would be son Pardeep who is local Mobility: Baseline Mobility: BMAT [...] IR embolization Anticipated disposition plan: uncertain, likely Residential Facility for subacute rehab Regarding the fall, [...] care was discussed with Dr. Kim, HIM strategy execution consultant. I personally spent a total 80 minutes in counseling and coordination of care as documented above. Thank you for the opportunity to care for this patient. We will continue to follow with you. Pleasepage the Geriatrics Consult Service at [phone]. * See Mcfarland M.D., Ph.D. - 03/03/2024 [...] plan. Please page the trauma service pager [phone] with questions or concerns regarding this patient. See Mcfarland M.D., Ph.D. General Surgery 03/03/24 1:42 AM CDT Associated attestation - Katelynn Stacy M.D. - 03/03/2024 2:50 AM CDT I have discussed the care of Ms. Leon with the resident/LOOM FIXER HELPER-PA team. Please see the team's documentation from [...] arise. We can be reached by paging [phone]. Katelynn Stacy MD, FACS Branch Rental Manager security solutions architect, [facility] Division of Trauma, Critical Care and General [...] and osteoporosis who presented to the [facility] ED after sustaining closed right superior and [...] From 6am-6pm Thursday-Thursday, please contact OTS-3 at [phone] with any questions regarding this patient. If overnight [phone] or any time on weekends, please contact the Orthopedic Surgery house resident personal security specialist at [phone]. Sharon Danielle MD Orthopedic Surgery Resident 03/03/24 12:37 AM CDT documented in this encounter Nursing Notes * Felipa Abdullahi, R.N. - 03/09/2024 2:56 PM CDT Shift Goals: [...] chair twice this shift. * Ainsley Thomas R.N. - 03/04/2024 9:43 PM CDT Problem: PAIN [...] MPAS, P.A.-C. - 03/03/2024 3:41 PM CDT OTS was previously consulted regarding Kathryn's right-sided LC1 pelvic ring injury sustained on 03/02/2024. Please see signed consultation note by Dr. Sharon Danielle for further details. Imaging studies and plan of care reviewed with OTS 3/Dr. Edwards. We recommend the below plan of care and continued non operative management: - Designated pelvic xrays - AP, inlet/outlet (ordered by OTS team). This will not exchange clerk, but rather for monitoring purposes and XR comparison when she returns for follow up - Weight bearing: full WBAT RLE, gait aid (walker) for ambulatory assistance / fall prevention - ROM: no restrictions RLE. We anticipate right sided groin pain with hip flexion movements ([id number], walking, etc) along with right sided low [...] From 6am-6pm Thursday-Thursday, please contact OTS-3 at [phone] with any questions regarding this patient. If overnight [phone] or any time on weekends, please contact the Orthopedic Surgery house resident personal security specialist at [phone]. documented in this encounter ED Notes * [...] admission. We will rediscuss with Orthopedic surgery. 05 We will go to IR now Final Diagnoses: as of 03/03/242241 Fracture Pelvis Other Parts Closed Initial (HCC) - Pelvic hematoma with active extravasation My ECG interpretation is documented in ED Course. My CT Scan interpretation is documented in ED Course. I discussed the management of the patient with: Orthopedic Surgeon. Adebayo Shepard M.D., M.P.H. 03/03/242241 * aCm Luna M.D. - 03/02/2024 11:33 PM CDT [...] Code blue activated for syncope, converted to SERVICES CLERK. Etiology of patient's syncope most consistent with [...] code was supervised by Dr. Aditya Grimes (strategy execution consultant physician). Critical care time 30 minutes. This is time spent at this critically ill patient's bedside activelyinvolved in patient care as well as the coordination of care and discussions with the patient's family. This does not include any procedural time which has been billed separately. * Hospital Course - Renée Brannon M.D. - 03/03/2024 7:07 AM CDT #1 History Of Falling Kathrny Leon was admitted to [facility] for management of their trauma-related injuries. After [...] therapy was consulted to assist with mobilization. Water Pollution Scientist was also consulted to assist with possible [...] Clinical Support Department of Rehabilitation Services in [address] [phone] Yobany Bateman APRN, C.N.P., D.N.P. [address] [place] [phone] Antonia Raines P.T. [address] [facility] [place] [phone] 05/10/2024 1:00 PM CDT Clinical Support Department of Rehabilitation Services in [address] [phone] Yobany Bateman APRN, Ant, D.N.P. [address] [place] [phone] Rashaun Garcia PMaikel [address] [place] [phone] documented as of this encounter Procedures Procedure [...] Basic Metabolic Panel (03/07/2024 9:21 PM CDT) Potassium, S 4.7 3.6 - 5.2 mmol/L [...] CDT Renée Brannon M.D. LAB BLOOD ADD-ON [facility] [address] [place] [address], [facility] DTL [facility] [address] [place] [address] * (ABNORMAL) CBC with Differential, Blood (03/07/2024 9:21 PM CDT) [facility] Hemoglobin 8.6(L) 11.6 - 15.0 g/dL 03/07/2024 [...] CDT Renée Brannon M.D. LAB BLOOD ADD-ON [facility] [address] [place], [place] [address] DTL [facility] [address] [place] [address] [facility] [address] [place] [address] * (ABNORMAL) Basic Metabolic Panel (03/06/2024 8:39 PM CDT) Pathologist [facility] Potassium, S 4.9 3.6 - 5.2 mmol/L [...] CDT Renée Brannon M.D. LAB BLOOD ADD-ON [facility] [address] [place] [address], [facility] DTL [facility] [address] [place] [address] * (ABNORMAL) CBC with Differential, Blood (03/06/2024 [...] CDT Renée Brannon M.D. LAB BLOOD ADD-ON [facility] [address] [place] [address], [facility] DTL [facility] [address] [place] [address] [facility] [address] [place] [address] * DX Abdomen Portable Anterior Posterior 1 [...] CDT Melisa Erwin M.D. LAB BLOOD ADD-ON [facility] [address] [place] [address], [facility] DTFormerly named [facility] [address] [place] [address] * (ABNORMAL) Basic Metabolic Panel (03/06/2024 7:25 AM CDT) Pathologist [facility] Potassium, S 4.5 3.6 - 5.2 mmol/L [...] M.D. LAB BLOOD ADD-ON Performing Organization Address [facility] Co de Phone Number [facility] [address] [place] [address], [facility] DTL [facility] [address] [place] [address] * ECG 12 Lead (03/05/2024 11:54 PM CDT) Ventricular Rate ECG/Min 73 BPM MUSE [place] Interval 168 ms MUSE QRSD Interval 86 ms MUSE QT Interval 376 ms MUSE QTC Interval 414 ms MUSE P [place] 63 degrees MUSE R [place] 40 degrees MUSE T Wave [place] 60 degrees MUSE 03/05/2024 11:5 4 PM [...] Estes M.D. ECG ORDERABLES Performing Organization Address [facility] Co de Phone Number MUSE NA * (ABNORMAL) Basic Metabolic Panel [...] CDT Marychuy Estes M.D. LAB BLOOD ADD-ON [facility] [address] [place] [address], [facility] DTFormerly named [facility] [address] [place] [address] * (ABNORMAL) CBC without Differential (03/05/2024 11:49 [...] CDT Marychuy Estes M.D. LAB BLOOD ADD-ON Performing Organization Address City/[facility]/ZIP Co de Phone Number [facility] 200 [place] [address], [facility] STMA [facility] 200 [place] [address] * (ABNORMAL) Glucose, POCT (03/05/2024 11:44 PM CDT) [facility] Glucose, POCT, B 143(H) 70 - 140 mg/dL 03/05/2024 11:53 PM CDT PCLX Site Capillary 03/05/2024 11:53 PM CDT PCLX Last Intake > 4 hours 03/05/2024 11:53 PM CDT PCLX Blood 03/05/2024 11:4 4 PM CDT 03/05/2024 11:53 PM CDT Unknown Provider LAB POCT ORDERABLES- MANUAL Performing Organization Address [facility] Co de Phone Number POC [facility] [address] [place] [address], [facility] PCLX [facility] POC 200 [place] [address] * DX Abdomen Portable Anterior Posterior 1 [...] Basic Metabolic Panel (03/05/2024 10:36 AM CDT) Potassium, S 4.4 3.6 - 5.2 mmol/L [...] CDT Melisa Erwin M.D. LAB BLOOD ADD-ON [facility] [address] [place] [address], [facility] DTFormerly named [facility] [address] [place] [address] * (ABNORMAL) CBC without Differential (03/05/2024 10:36 [...] CDT Melisa Erwin M.D. LAB BLOOD ADD-ON [facility] [address] [place] [address], [facility] DTFormerly named [facility] [address] [place] [address] * (ABNORMAL) Hemoglobin (03/04/2024 6:38 AM CDT) Hemoglobin 10.4(L) 11.6 - 15.0 g/dL 03/04/2024 7:14 AM CDT DT Blood (Blood, Venous) 03/04/2024 6:38 AM CDT 03/04/2024 7:01 AM CDT Renée Brannon M.D. LAB BLOOD ADD-ON Performing Organization Address City/[facility] Co de Phone Number [facility] [address] 200 [place] [address] * (ABNORMAL) Hemoglobin (03/04/2024 2:02 AM CDT) [facility] Hemoglobin 10.5(L) 11.6 - 15.0 g/dL 03/04/2024 2:59 AM CDT DT Blood (Blood, Venous) 03/04/2024 2:02 AM CDT 03/04/2024 2:49 AM CDT Renée Brannon M.D. LAB BLOOD ADD-ON Performing Organization Address City/[facility] Co de Phone Number [facility] [address] [place], [place] [address] [place] [address] 200 [place] [address] * (ABNORMAL) Vitamin B12 Assay (03/03/2024 8:16 PM CDT) [facility] Vitamin B12 Assay, S 1299(H) 180 [...] 03/03/2024 9:14 PM CDT Juan Mcpherson Jr., Ant NAM, M.S.N . LAB BLOOD ADD-ON [facility] [address] [place] [address], [place] DTL [facility] [address] [place] [address] * (ABNORMAL) Basic Metabolic Panel (03/03/2024 8:16 PM CDT) [facility] Potassium, S 4.2 3.6 - 5.2 [...] 03/03/2024 9:14 PM CDT Juan Mcpherson Jr., APRN, C.N.P., M.S.N . LAB BLOOD ADD-ON Performing Organization Address [facility]/ZIP Co de Phone Number [facility] [address] [place] [address], [facility] DTFormerly named [facility] [address] [place] [address] * (ABNORMAL) CBC without Differential (03/03/2024 8:16 PM CDT) Pathologist [facility] Hemoglobin 11.3(L) 11.6 - 15.0 g/dL 03/03/2024 [...] CYRIL, C.N.P., M.S.N . LAB BLOOD ADD-ON [facility] [address] [place] [address], [facility] DTFormerly named [facility] [address] [place] [address] * Basic Metabolic Panel (03/03/2024 8:16 PM CDT) Pathologist [facility] Potassium, S CANCELED 3.6 - 5.2 mmol/L [...] PM CDT 03/03/2024 9:13 PM CDT Narrative [facility] - 03/07/2024 9:27 AM CDT Basic Metabolic Panel, S was cancelled on 03/07/2024 at 09:27; Duplicate test request. !CNCL! Juan Mcpherson Jr., CYRIL, C.N.P., M.S.N . LAB BLOOD ADD-ON [facility] [address] [place] [address], [facility] DTL [facility] 200 [place] [address] * DX Pelvis 3+ Views (03/03/2024 5:02 [...] SIjoints. Excreted urinary contrast. Urinary catheter. Nenita TREVINO PDannA.-Esperanza IMG DIAGN OSTIC IMAGING PROCEDURES * (ABNORMAL) [...] Chato Walsh P.A.-C. LAB BLOOD ADD- ON [facility] [address] [place] [address], [facility] DTL [facility] [address] * IR Pelvic Artery Embolization (03/03/2024 7:51 [...] created and stored. Using Seldinger technique, a 5-Singaporean vascular sheath was placed. A Flush catheter [...] was 83 minutes. Maggi Escalante M.D., M.S. [facility] IR PRO CEDURES * (ABNORMAL) CBC with [...] Maggi Escalante M.D., M.S. LAB BLOOD ADD-ON [facility] [address] [place] [address], [facility] STMA [facility] [address] [place] [address] [facility] [address] [place] [address] * (ABNORMAL) Venous Blood Gas and Electrolytes CG8+, POCT (03/03/2024 3:12 AM CDT) Pathologist [facility] Sample Site, POCT Venstick 03/03/2024 3:28 AM [...] LAB POCT ORDERABLES - DEVICE POC [facility] [address] [place] [address], [facility] PCLX [facility] POC [address] [place] [address] PCSM [facility] POC [address] [place] [address] * CT Thoracic Spine by Reconstruction (03/03/2024 [...] traumatic malalignment of the thoracic spine. Cam L Luna M.D. IMG CT PROCEDURES * CT [...] were discussed with See Mcfarland M.D. (Pager [phone]) on 03/03/2024 2:19 AM Procedure Note Alfonso [...] were discussed with See Mcfarland M.D. (Pager [phone]) on03/03/2024 2:19 AM IMPRESSION: 1. Acute right pelvic fractures with adjacent hematoma and evidence ofactive bleeding into the space of Retzius. 2. Intramuscular hematomas involving the right obturator externus andinternus without evidence of active extravasation. 3. 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 Cam LLANES CT PROCEDURES * CT Chest [...] were discussed with See Mcfarland M.D. (Pager [phone]) on 03/03/2024 2:19 AM Procedure Note Alfonso [...] 10 mm hypervascular lesion in the pancreatichead (/), unchanged since CT 02/03/2007. Pancreatic atrophy. Normalspleen, adrenal glands. Bilateral renal cysts. Moderately distendedurinary bladder. Colonic diverticulosis without evidence of diverticulitis. Normal caliber bowel without evidenceof obstruction. Normal appendix. No abdominopelvic lymphadenopathy by sizecriteria. Please see separate CT thoracic and lumbar spine reports for spinalfindings. Findings were discussed with See Mcfarland M.D. (Pager [phone]) on03/03/2024 2:19 AM IMPRESSION: 1. Acute right pelvic fractures with adjacent hematoma and evidence ofactive bleeding into the space of Retzius. 2. Intramuscular hematomas involving the right obturator externus andinternus without evidence of active extravasation. 3. 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 Cam Luna M.D. [facility] CT PROCEDURES * CT Cervical Spine without IV Contrast (03/03/2024 2:16 AM CDT) Anatomical Region Laterality Modality Cervical Spine, Neuroradiolo gy RST LOS, Neuroradiology ARZ LOS, Neuroradiology FL LOS N/A Computed Tomography, Compute d Tomography [...] of the cervical spine. Cam Luna M.D. [facility] CT PROCEDURES * CT Head without IV [...] intracranial abnormality or fracture. Cam Luna M.D. [facility] CT PROCEDURES * DX Elbow Right 3+ [...] maintained. No joint effusion. Cam Luna M.D. [facility] DIAGNOSTIC IMAGI NG PROCEDURES * DX Hip [...] pubic symphysis. Vascular calcifications. Cam Luna M.D. [facility] DIAGNOSTIC IMAGI NG PROCEDURES * CT Pelvis [...] CT abdomen pelvis 04/14/2018. Cam Luna M.D. [facility] CT PROCEDURES * CT Lumbar Spine without IV Contrast (03/03/2024 12:23 AM CDT) Anatomical Region Laterality Modality Lumbar Spine, Neuroradiology RST LOS, Neuroradiology ARZ [facility], Neuroradiology FLA LOS N/A Computed Tomography, Compute [...] Lumbar spondylosis, as described. Cam Luna M.D. [facility] CT PROCEDURES * (ABNORMAL) Basic Metabolic Panel [...] CDT Cam Luna M.D. LAB BLOOD ADD-ON [facility] [address] [place] [address], [facility] [address] [place] [address] * (ABNORMAL) CBC with Differential, Blood (03/02/2024 [...] CDT Cam Luna M.D. LAB BLOOD ADD-ON Performing Organization Address City/[facility]/ZIP Co de Phone Number [facility] 200 [place] [address], [facility] STMA [facility] [address] [place] [address] DHPM [facility] 200 [place] [address] * Type and Screen (with Reflex Antibody ID) (03/02/2024 11:50 PM CDT) Pathologist [facility] ABORh A Pos Not applicable 03/03/2024 3:15 AM CDT STRM Antibody Screen Negative Negative 03/03/2024 3:15 AM CDT STRM Type & Screen Expiration 03/05/2024 23:59 03/03/2024 3:15 AM CDT STRM Testing Location [place] DEFAULT 03/03/2024 2:35 AM CDT STRM Blood (Blood, Venous) 03/02/2024 11:50 PM CDT 03/03/2024 2:35 AM CDT Adebayo Shepard M.D., M.P.H. LAB BLOOD BANK TEST ORDERABLES Performing Organization Address [facility]/ZIP Co de Phone Number [facility] 200 [place] [address], [facility] STRM [facility] 200 [place] [address] * ECG 12 Lead (03/02/2024 11:45 PM CDT) Ventricular Rate ECG/Min 72 BPM MUSE [place] Interval 162 ms MUSE QRSD Interval 94 ms MUSE QT Interval 404 ms MUSE QTC Interval 442 ms MUSE P [place] 47 degrees MUSE R [place] 38 degrees MUSE T Wave [place] 45 degrees MUSE 03/02/2024 11:4 5 PM CDT 03/02/2024 11:52 PM CDT Impressions MUSE - 03/02/2024 11:52 PM CDT Normal sinus rhythm Nonspecific ST abnormality When compared with ECG of 07-Apr-2016 11:09, No significant change was found Reviewed by LETICIA Rojas Narrative Procedure Note Douglas Julian M.D. - [...] Failure Renal Acute (Acute Kidney Injury) (HCC) documented in this encounter Admitting Diagnoses Diagnosis Fracture Pelvis Other Parts Closed Initial (HCC) documented in this encounter Administered Medications Inactive Administered Medications - up to 3 most recent administrations Medication Order MAR Action Action Date Dose Rate Site acetaminophen tablet 650 mg (TylenoL) 650 mg, oral, Every 6 hours PRN, mild pain or score 1-3 of 10, Starting on Thu03/03/24 at 1219, If multiple analgesics ordered for [...] subcutaneous, 2 times daily, First dose on Tania 03/03/24 at 2100 Given 03/09/2024 8:51 AM CDT [...] intravenous, Once in imaging, contrast, Starting on Thu03/03/24 at 0152, For 1 dose, Imaging Protocol Orders, Dose per Radiant Medication Guidelines Given 03/03/2024 12:32 PM CDT 140 mL Lactated Ringer's bolus 1,000 mL 1,000 mL, intravenous, at 333 mL/hr, Administer over 3 Hours, Once, On Thu03/06/24 at 1245, For 1 dose New Bag 03/06/2024 12:38 PM CDT 1,000 mL 333 mL/hr Lactated Ringer's 20 mL/hr, intravenous, Once as needed, to keep vein open, Starting on Thu03/03/24 at 0619, For 1 dose, Intraprocedure (RAD) New Bag 03/03/2024 6:22 AM CDT 20 mL/hr 20 mL/hr lactulose solution 10 g 10 g, oral, 3 times daily PRN, constipation, Starting on Thu03/06/24 at 0915 Given 03/08/2024 8:20 AM CDT [...] oral, 2 times daily, First dose on Thu03/06/24 at 0930 Given 03/06/2024 10:59 PM CDT 2 tablets Given 03/06/2024 12:39 PM CDT 2 tablets simethicone chewable tablet 80 mg 80 mg, oral, 4 times daily PRN, flatulence, Starting on Thu03/07/24 at 2006 Given 03/08/2024 11:30 PM CDT [...] oxycodone 0834 (Given - Provider: Theresa Xiong R.N.)1226 (Given - Provider: Theresa Xiong RDannN.)1722 (Given - Provider: Theresa Xiong R.N.)2014 (Given - Provider: Jessica Merino R.N.) 0819 (Given - Provider: Felipa Abdullahi R.N.)1323 (Given - Provider: Felipa Abdullahi R.N.)1700 (Due)2025 (Given - Provider: Jessica Merino R.N.) 0704 (Given - Provider: Jessica Merino R.N.)1224 [...] R.N.)2014 (Given - Provider: Jessica Merino R.N.) 0820 (Given - Provider: Felipa Abdullahi R.N.)2025 (Given [...] Xiong R.N.)1723 (Given - Provider: Theresa Xiong R.N.)2019 (Given - Provider: Jessica Merino R.N.) 0821 (Given - Provider: Felipa Abdullahi R.N.)1324 (Given - Provider: Felipa Abdullahi R.N.)1700 (Due)2029 (Given - Provider: Jessica Merino R.N.) 0706 [...] R.N.) 0819 (Given - Provider: Felipa Abdullahi R.N.)202 (Given - Provider: Jessica Merino R.N.) 0851 [...] Abdullahi R.N.) 0359 (Medication Removed - Provider: Dorene AdamsN.)1225 (Medication Applied - Provider: Felipa Abdullahi R.N.)1456 [...] R.N.) 0648 (Given - Provider: Jessica Merino RChucho.) 0704 (Given - Provider: Dorene AdamsN.) polyethylene glycol powder packet 17 g (Miralax) [...] daily, First dose (after last modification) on 03/07/24 at 0900 0902 (Given - Provider: Theresa Xiong R.N.)2019 (Not Given - Provider: Jessica Merino R.N. - Reason: Patient/family refused) 818 (Given - Provider: Felipa Abdullahi R.N.)2025 (Given - Provider: Jessica Merino R.N.) 0852 (Given - Provider: Felipa Abdullahi R.N.) PRN Medication Order 03/07/2024 03/08/2024 03/09/2024 bisacodyL suppository 10 mg (Dulcolax) 10 mg, rectal, Bedtime PRN, constipation, Starting on Thu03/04/24 at 1341 docusate sodium 283 mg/5 mL [...] PRN, sleep, Starting on Thu03/04/24 at 2118 ondansetron (PF) injection 4 mg [...] of 10, for breakthrough pain, Starting on Thu03/03/24 at 1220, Pain unrelieved by other oral analgesics. 0823 (Given - Provider: Theresa Xiong R.N. - Comment: given before therapy)2025 (Given - Provider: Jessica Merino R.N.) 0655 (Given - Provider: Jessica Merino R.N.)1012 (Given - Provider: Felipa Abdullahi R.N.)2334 (Given - Provider: Jessica Merino R.N.) 1404 (Given - Provider: Felipa Abdullahi R.N.) simethicone chewable tablet 80 mg 80 mg, oral, 4 times daily PRN, flatulence, Starting on Thu03/07/24 at 2006 2025 (Given - Provider: Jessica Merino R.N.) 0655 (Given - Provider: Dorene AdamsNDann)2033 (Given - Provider: Jessica Merino R.N.)2330 (Given - Provider: Jessica Merino R.N.) Linked Groups Order Group 1: oxyCODONE IR tablet 2.5 mg (Roxicodone)Jump to med 2.5 mg, oral, Every 4 hours PRN, moderate pain or score 4-6 of 10, for breakthrough pain, Starting on 03/03/24 at 1220, Pain unrelieved by other [...] Total Score: 0 11/02/19 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
--- OUTSIDE RECORDS SUMMARY | 2024-04-29 11:26 | XMS_ITS | Encounter Summary ---
Author Organization [facility] Address [address] [place] [address] Care Team Providers Care Doctor Of Medicine Name Role Phone Elsewhere, Pcp Primary Care Provider Unavailabl e Encounter Details Date Type Department Care Team (Late st Contact Info) Description 03/05/2024 8:15 AM CDT Ancillary Procedure Department of Nursing Social History Tobacco Use Types Packs/Day Years Used Date Smoking Tobacco: Never Smokeless Tobacco: Never Alcohol Use Standard Drinks/Week Comments Not Currently 0 (1 standard drink = 0.6 oz pur e alcohol) [facility] Utilities Answer Date Recorded In the past 12 months has [facility] [employer], gas, oil, or water [facility] [employer] threatened to shut off services in your [...] How often do you attend chur or hinduism services? More than 4 times per year 09/27/2022 Do you belong to any clubs o r organizations such as orthodoxy groups, unions, fraternal or athletic groups, or [...] and heating? Not hard at all 09/27/2022 [facility] [place] of Occupat ional Health - Occupational Stress [...] your living situation today? I have a [facility] place to live 03/03/2024 Education [...] Clinical Support Department of Rehabilitation Services in [address] [phone] Yobany Bateman APRN, C.N.P., D.N.P. [address] [place] [phone] Antonia Raines P.T. [address] [place] [phone] 05/10/2024 1:00 PM CDT Clinical Support Department of Rehabilitation Services in [address] [phone] Yobany Bateman APRN, C.N.P., D.N.P. [address] [place] [phone] Rashaun Garcia, P.T. 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
--- OUTSIDE RECORDS SUMMARY | 2024-04-29 11:26 | XMS_ITS | Encounter Summary ---
Author Organization [facility] Address [address] [place] [address] Care Team Providers Care Medical Records Coordinator Name Role Phone Elsewhere, Pcp Primary Care Provider Unavailabl e Reason for Referral * Physical Therapy (Routine) - Authorized Specialty Diagnoses / Procedures Referred By Contac t Referred To Contact Diagnoses Fracture Pelvis Multiple With Stable Disruption Of Pelvic Ring Open Initial (HCC) Procedures PT Ongoing treatment Yobany Bateman APRN, C.N.P., D.N.P. [address] [place] [address] [facility] Region Referral ID Status Reason Start Date Expiration Date V isits Requested Visits Authorized [id number] Authorized 04/04/2024 04/04/2025 99 99 Reason for Visit * Appointment Request (Routine) - Closed Specialty Diagnoses / Procedures Referred By Contac t Referred To Contact Physical Therapy Referral ID Status Reason Start Date Expiration Date Visits Re quested Visits Authorized [id number] Closed 04/04/2024 04/04/2025 1 1 Encounter Details Date Type Department Care Team (Latest Contact Info) Description 04/04/2024 2:30 PM CDT Comprehensive Visit Department of Rehabilitation Services in [address] [phone] Cielo Bhakta M.D. [address] [place] [address] Rashaun Garcia P.T. [address] [place] [address] Fracture Pelvis Multiple With Stable Disruption Of Pelvic Ring Open Initial (HCC) (Primary Dx) Social History Tobacco Use Types Packs/Day Years Used Date Smoking Tobacco: Never Smokeless Tobacco: Never Alcohol Use Standard Drinks/Week Comments Not Currently 0 (1 standard drink = 0.6 oz pur e alcohol) [facility] Utilities Answer Date Recorded In the past 12 months has e [employer], gas, oil, or water [employer] threatened to shut off services in your [...] often do you attend chur ch or christianity services? More than 4 times per year 09/27/2022 Do you belong to any clubs o r organizations such as hindu groups, unions, fraternal or athletic groups, or [...] and heating? Not hard at all 09/27/2022 [facility] [place] of Occupat ional Health - Occupational Stress [...] as of this encounter Consult Notes * Rashaun Garcia, PDannT. - 04/04/2024 2:30 PM CDT Physical Therapy Outpatient Evaluation/Treatment SUBJECTIVE Patient's Name: Kathryn Leon Referring Provider: No ref. provider found Visit Diagnosis: 1. Fracture Pelvis Multiple With Stable Disruption Of Pelvic Ring Open Initial (HCC) Reason for Referral: Patient is status post right pelvic fracture. Onset Date: 03/02/24 Payor: MEDICARE / Plan: MEDICARE A AND B / Product Type: Medicare / [facility] Visit Count: 1 PERTINENT MEDICAL / SURGICAL HISTORY: Patient Active Problem List Diagnosis Arthritis Rheumatoid ([facility]) Vertigo Vertigo Benign Paroxysmal Positional Bilateral Osteoporosis Fracture Pelvis Other Parts Closed Initial (HCC) Loss Hearing Sensorineural Bilateral Gastroesophageal Reflux Disease NOS Neuropathy Peripheral Mononeuropathy Lower Limb Right History Of Falling Hemorrhage Lesion Pancreas Failure Renal Acute (Acute Kidney Injury) ([facility]) Past Surgical History: Procedure Laterality Date BREAST [...] 1995 Repair of cystocele History of Present Illness:Patient injured this when she was coming down the steps backwards in [place] her footing. This is an 89-year-old female who comes into therapy secondary to being status post pelvic fracture. She was going down the steps backwards and she misstepped. She recently returned home from the correction. Presently, she has little pain. She can be full weight-bearing as tolerated at this time.She lives by herself at home independently. She states that she has been walking at home. She uses a 4 wheeled walker for this. Family/Caregiver Present: Yes Patient goals: OBJECTIVE REVIEW OF SYSTEMS PHYSICAL EXAM Pain: Pain Assessment Pain Score: 2 Ortho Exam Upon observation, patient comes down into therapy on a wheelchair. She was able ambulate independently with a front wheeled walker. I we had her sit on the treatment table. She was able to go from sit to supine with standby assist. Once supine, we assess patient's overall strength. Her core strength and hip strength bilaterally is 4-/5. Overall mobility of her right hip is within functional limits. This is also true with her left. Hip flexion does cause a little irritation in her right groin region. TREATMENT Treatment today consisted of: Based upon patient's history and findings, we concentrated on strengthening of her core/lower extremities. She started out with bridging exercises. She worked on pelvic stabilization exercises with manual resistance. She did the same for hip abduction/adduction. We had her work on bridging exercises with hip abduction. She worked on straight leg raises both single and double. We had her work on isometric internal/external rotation of her right hip. After this, we had her in short sitting we hadher work on [id number] exercises working shallow squats. Assessment Clinical Impression: Patient presents to physical therapy with signs and symptoms consistent with general weakness status post pelvic fracture. Presently, she is doing quite well. She is ambulating at home independently with a 2 wheeled walker. Strength is somewhat limited at this time. This is the biggest issue for at this time. Rehab Potential: Patient has Good potential to achieve established physical therapy goals within the time frame outlined below, provided active participation in the physical therapy treatment plan and home program. Clinical Presentation: Stable Examination elements: 1-2 Clinical Decision Making: Low complexity clinical decision making Functional Goals and Timeframes: PT Outpatient Goals PT Goal #1: To increase overall strength of the hips/core to 4+/5. PT Goal #1 Date: 05/09/24 PT Goal #2: Patient is able to ascending/descend stairs using 1 rail reciprocating as she goes. PT Goal #2 Date: 05/09/24 PT Goal #3: Patient is able ambulate independently with a standard cane for distance of 50 ft or greater. PT Goal #3 Date: 05/09/24 Plan Patient was educated regarding evaluative findings, diagnosis, prognosis, potential risks and benefits of rehabilitation interventions. A collaborative effort was used to establish goals and plan of care. The patient was informed of the right to make decisions regarding care, including refusal of examination or treatment or selection of services from another provider if desired. The treatment plan may be progressed or modified based upon the patient's response to treatment. Treatment Plan: We will focus on strengthening. We will also work on gait/ambulation. Start of Plan of Care: 04/04/2024 Number of Visits:8 visits PT Duration: 45 days PT Frequency: PT Frequency: 2 times per week Treatment interventions may include: Treatment/Interventions: Therapeutic exercise Plan for next session: Time Spent with Patient Evaluations PT Eval - Low Complexity: 25 min Time Tracking Total Treatment Time (min): 25 min documented in this encounter Plan of Treatment Upcoming Encounters Date Type Department Care Team (Late st Contact Info) Description 05/02/2024 3:15 PM CDT Clinical Support Department of Rehabilitation Services in [address] [phone] Yobany Bateman APRN, C.N.P., D.N.P. [address] [place] [phone] Antonia Raines P.T. [address] [place] [phone] 05/10/2024 1:00 PM CDT Clinical Support Department of Rehabilitation Services in [address] [phone] Yobany aBteman APRN, C.N.P., D.N.P. [address] [place] [address] Rashaun Garcia P.TDnan [address] [phone] documented as of this encounter Visit Diagnoses Diagnosis Fracture Pelvis Multiple With Stable Disruption Of Pelvic Ring Open Initial (HCC)- Primary documented in this encounter Additional Health Concerns Assessment Noted Time PHQ-9 Depression Total Score: 0 11/02/19 14 2:[address] documented as of this encounter Care Teams Medical Records Coordinator Relationship Specialty Start Date End Date Elsewhere, Pcp PCP - General Family Medicine 01/31/21 documented as of this encounter
--- OUTSIDE RECORDS SUMMARY | 2024-04-29 11:26 | XMS_ITS | Encounter Summary ---
Author Organization [facility] Address [address] [place] [address] Care Team Providers Care Systems Specialist Name Role Phone Elsewhere, Pcp Primary Care Provider Unavailabl e Encounter Details Date Type Department Care Team (Late st Contact Info) Description 03/10/2024 Orders Only Department of Orthopedic Surgery in [place], [place] [address] [place] [address] Nenita Elkins, MPAS, P.A.-C. [address] [place] [phone] Social History Tobacco Use Types Packs/Day Years Used Date Smoking Tobacco: Never Smokeless Tobacco: Never Alcohol Use Standard Drinks/Week Comments Not Currently 0 (1 standard drink = 0.6 oz pur e alcohol) [facility] Utilities Answer Date Recorded In the past 12 months has e [employer], gas, oil, or water [employer] threatened to shut off services in your [...] How often do you attend chur or scientologist services? More than 4 times per year 09/27/2022 Do you belong to any clubs o r organizations such as sikh groups, unions, fraternal or athletic groups, or [...] your living situation today? I have a [facility] place to live 03/03/2024 [...] Clinical Support Department of Rehabilitation Services in [address] [phone] Yobany Bateman APRN, C.N.P., D.N.P. [address] [place] [address] Antonia Raines, P.TDann [address] [place] [phone] 05/10/2024 1:00 PM CDT Clinical Support Department of Rehabilitation Services in [address] [phone] Yobany Bateman APRN, C.N.P., D.N.P. [address] [place] [address] Rashaun Garcia P.T. [address] [place] [phone] documented as of this encounter Visit Diagnoses Not on filedocumented in this encounter Additional Health Concerns Assessment Noted Time PHQ-9 Depression Total Score: 0 11/02/19 14 2:53 PM SHANK STITCHER documented as of this encounter Care Teams Systems Specialist Relationship Specialty Start Date End Date Elsewhere, Pcp PCP - General Family Medicine 01/31/21 documented as of this encounter
--- OUTSIDE RECORDS SUMMARY | 2024-04-29 11:26 | XMS_ITS | Encounter Summary ---
Author Organization [facility] Address [address] [place] [address] Care Team Providers Care Internal Controls Specialist Name Role Phone Elsewhere, Pcp Primary Care Provider Unavailabl e Reason for Visit * Reason Onset Date Comments Lovenox Injections 03/10/2024 Encounter Details Date Type Department Care Team (Latest Contact Info) Description 03/10/2024 Clinical Communication Department of Orthopedic Surgery in [place], [place] [address] [place] [address] Nenita Elkins, MPAS, P.A.-C. [address] [place] [phone] Lovenox Injections Social History Tobacco Use Types Packs/Day Years Used Date Smoking Tobacco: Never Smokeless Tobacco: Never Alcohol Use Standard Drinks/Week Comments Not Currently 0 (1 standard drink = 0.6 oz pur e alcohol) [facility] Utilities Answer Date Recorded In the [...] How often do you attend chur or latter day services? More than 4 times per year 09/27/2022 Do you belong to any clubs o r organizations such as muslim groups, unions, fraternal or athletic groups, or [...] and heating? Not hard at all 09/27/2022 [facility] [place] of Occupat ional Health - Occupational Stress [...] your living situation today? [facility] 03/03/2024 Education Answer [...] Support Department of Rehabilitation Services in [address] [phone] Yobany Bateman APRN, C.N.P., D.N.P. [address] [place] [phone] Antonia Raines P.T. [address] [place] [phone] 05/10/2024 1:00 PM CDT Clinical Support Department of Rehabilitation Services in [address] [phone] Yobany Bateman APRN, C.N.P., D.N.P. [address] [place] [phone] Rashaun Garcia P.TDann [address] [place] [phone] documented as of this encounter Visit Diagnoses Not on filedocumented in this encounter Additional Health Concerns Assessment Noted Time PHQ-9 Depression Total Score: 0 11/02/19 14 2:53 PM LENGTH CONTROL TESTER documented as of this encounter Care Teams Internal Controls Specialist Relationship Specialty Start Date End Date Elsewhere, Pcp PCP - General Family Medicine 01/31/21 documented as of this encounter
--- OUTSIDE RECORDS SUMMARY | 2024-04-29 11:26 | XMS_ITS | Encounter Summary ---
Author Organization [facility] Address [address] [place] [address] Care Team Providers Care Plant Operations Manager Name Role Phone Elsewhere, Pcp Primary Care Provider Unavailabl e Reason for Visit * Reason Onset Date Comments Pre-visit Intake 03/30/2024 Encounter Details Date Type Department Care Team (Latest Contact Info) Description 03/30/2024 1:45 PM CDT Clinical Communication Virtual Review in [place], [place] [address] [place] [address] Pre-visit Intake Social History Tobacco Use Types Packs/Day Years Used Date Smoking Tobacco: Never Smokeless Tobacco: Never Tobacco Cessation:Counseling Given: Not Answered Alcohol Use Standard Drinks/Week Comments Not Currently 0 (1 standard drink = 0.6 oz pur e alcohol) [facility] Utilities Answer Date Recorded In the past 12 months has [facility] [employer], gas, oil, or water [employer] threatened to shut off services in your [...] heating? Not hard at all 09/27/2022 [facility] of Occupat ional Health - [...] your living situation today? I have a [facility] place to live 03/03/2024 Education Answer [...] Clinical Support Department of Rehabilitation Services in [address] [phone] Yobany Bateman APRN, C.N.P., D.N.P. [address] [place] [address] Antonia Raines P.T. [address] [place] [phone] 05/10/2024 1:00 PM CDT Clinical Support Department of Rehabilitation Services in [address] [phone] Yobany Bateman APRN, C.N.P., D.N.P. [address] [place] [address] Rashaun Garcia P.T. [phone] [place] [phone] documented as of this encounter Visit Diagnoses Not on filedocumented in this encounter Additional Health Concerns Assessment Noted Time PHQ-9 Depression Total Score: 0 11/02/19 14 2:53 PM EMPLOYMENT SECURITY OFFICER documented as of this encounter Care Teams Plant Operations Manager Relationship Specialty Start Date End Date Elsewhere, Pcp PCP - General Family Medicine 01/31/21 documented as of this encounter
--- OUTSIDE RECORDS SUMMARY | 2024-04-29 11:27 | XMS_ITS | Encounter Summary ---
Author Organization [facility] Address [address] [place] [address] Care Team Providers Care Plate Maker Name Role Phone Elsewhere, Pcp Primary Care Provider Unavailabl e Reason for Referral * Outpatient (Routine) - Closed Specialty Diagnoses / Procedures Referred By Contac t Referred To Contact Diagnoses Fracture Pelvis Other Parts Closed Initial (HCC) Procedures DX Pelvis 3+ Views DX Pelvis 1-2 Views Nenita Elkins MPAS PDannA.-CDann [address] [place] [address] [facility] Referral ID Status Reason Start Date Expiration Date Visits Re quested Visits Authorized [id number] Closed 03/03/2024 03/03/2025 1 1 * Outpatient (Routine) - Closed Specialty Diagnoses / Procedures Referred By Contac t Referred To Contact Endocrinology Diagnoses Fracture Pelvis Other Parts Closed Initial (HCC) Nenita Elkins MPAS PDannADann-CDann [address] [place] [address] [facility] Referral ID Status Reason Start Date Expiration Date Visits Re quested Visits Authorized [id number] Closed 03/03/2024 09/02/2025 1 1 * Outpatient (Routine) - Closed Specialty Diagnoses / Procedures Referred By Violeta keating Referred To Contact Orthopedic Surgery Nenita Elkins MPAS, P.A.-[place] [address] [place] [phone] [facility] Referral ID Status Reason Start Date Expiration Date Visits Re quested Visits Authorized [id number] Closed 03/03/2024 09/02/2025 1 1 Scheduling Instructions BRENDA Bernstein W/ ENDO XR prior. appt between - Encounter Details Date Type Department Care Team (Late st Contact Info) Description 03/03/2024 Orders Only Department of Orthopedic Surgery in [place], [place] [address] [place] [phone] Nenita Elkins MPAS, P.A.-C. [address] [place] [phone] Fracture Pelvis Other Parts Closed Initial (HCC) (Primary Dx) Social History Tobacco Use Types Packs/Day Years Used Date Smoking Tobacco: Never Smokeless Tobacco: Never Alcohol Use Standard Drinks/Week Comments Not Currently 0 (1 standard drink = 0.6 oz pur e alcohol) [facility] Utilities Answer Date Recorded In the past 12 months has [facility] [email or web address], oil, or water [employer] threatened to shut off services in your [...] How often do you attend chur or cheondoism services? More than 4 times per year 09/27/2022 Do you belong to any clubs o r organizations such as hoahaoism groups, unions, fraternal or athletic groups, or [...] and heating? Not hard at all 09/27/2022 [facility] of Occupat ional Health - [...] your living situation today? I have a [facility] place to live 03/03/2024 Education Answer [...] Clinical Support Department of Rehabilitation Services in [address] [phone] Yobany Bateman APRN, C.N.P., D.N.P. [address] [place] [phone] Antonia Raines P.TDann [address] [place] [phone] 05/10/2024 1:00 PM CDT Clinical Support Department of Rehabilitation Services in [address] [phone] Yobany Bateman APRN, C.N.P., D.N.P. [address] [place] [address] Rashaun Garcia P.T. [address] [phone] Scheduled Referrals Name Type Priority Associated Diagnoses Order Schedule Orthopedic Surgery office visit (clinic) Outpatient Referral Routine Expect ed: 04/05/2024, Expires: 06/03/2025 Endocrinology - Fragility fracture consult (clinic) Outpatient Referral Routine Fracture Pelvis Other Parts Closed Initial (HCC) Expected: 04/05/2024, Expires: 06/03/2025 documented as of this encounter Results * DX Pelvis 3+ [...] lumbar spine andSI joints. Arterial calcifications. Nenita TREVINO P.AElida. IMG DIAGN OSTIC IMAGING PROCEDURES documented in this encounter Visit Diagnoses Diagnosis Fracture Pelvis Other Parts Closed Initial (HCC)- Primary Fracture Pelvis Other Parts Closed Initial (HCC) documented in this encounter Additional Health Concerns Assessment Noted Time PHQ-9 Depression Total Score: 0 11/02/19 14 2:53 PM BULKING MACHINE OPERATOR documented as of this encounter Care Teams Plate Maker Relationship Specialty Start Date End Date Elsewhere, Pcp PCP - General Family Medicine 01/31/21 documented as of this encounter
--- OUTSIDE RECORDS SUMMARY | 2024-04-29 11:27 | XMS_ITS | Encounter Summary ---
Author Organization [facility] Address [address] [place] [address] Care Team Providers Care Harness Maker Name Role Phone Elsewhere, Pcp Primary [...] alcohol) [facility] Utilities Answer Date Recorded In the past 12 months has [facility] [employer], gas, oil, or water [employer] threatened to shut off services in your [...] How often do you attend chur or zoroastrianism services? More than 4 times per year 09/27/2022 Do you belong to any clubs o r organizations such as sabianism groups, unions, fraternal or athletic groups, or [...] and heating? Not hard at all 09/27/2022 [facility] of Occupat ional Health - Occupational Stress [...] your living situation today? I have a [facility] place to live 03/03/2024 Education Answer [...] Clinical Support Department of Rehabilitation Services in [address] [phone] Yobany Bateman APRN, C.N.P., D.N.P. [address] [place] [phone] Antonia Raines P.T. [address] [place] [phone] 05/10/2024 1:00 PM CDT Clinical Support Department of Rehabilitation Services in [address] [phone] Yobany Bateman APRN, C.N.P., D.N.P. [address] [place] [phone] Rashaun Garcia, P.T. [address] [phone] documented as of this encounter Procedures Procedure [...] Total Score: 0 11/02/19 14 2:53 PM HEALTH CARE LAW SPECIALIST documented as of this encounter Care Teams Harness Maker Relationship Specialty Start Date End Date Elsewhere, Pcp PCP - General Family Medicine 01/31/21 documented as of this encounter
== END 2024-04-28 14:44 | disposition home or self-care (01) ==
LOC: NFLDREF 04-29 11:22
PROVIDERS: PCP Nurse Practitioner Family; Referring Provider Nurse Practitioner Family; Visit Provider Nurse Practitioner Family
DX: N39.0 Urinary tract infection, site not specified (principal)
CPT/HCPCS: 81001; 87086; 87186

== ENCOUNTER 2024-06-21 11:15 | Outpatient (CLI) | payer MEDICARE, OTHER, SELFPAY ==
--- OUTSIDE RECORDS SUMMARY | 2024-06-24 11:39 | XMS_ITS | Referral Summary ---
Author Organization [facility] Address [address] [place] [address] Care Team Providers Care Saw Cleaner Name Role Phone Elsewhere, Pcp Primary Care Provider Unavailabl e Source Comments Patient records contain information from all sites at [facility]. For routine questions regarding patient records, call [phone] during business hours, M-F 8:00 AM - 5:00 PM Central Time. Record requests for emergency care only can be directed to [phone] at any time.[facility] Encounters Date Type Department Care Team Description 05/11/2024 12:30 PM CDT Clinical Support Department of Rehabilitation Services in [address] [address] Yobany Batemna APRN, C.NOlivia, Suhas.Antonia Johnson, P.T., D.P.T. Fracture Pelvis Multiple With Stable Disruption Of Pelvic Ring Open Initial (HCC) 05/02/2024 3:15 PM CDT Clinical Support Department of Rehabilitation Services in [address] [address] Yobany Bateman APRN, C.NOlivia, Suhas.N.Antonia Peña PDannT., D.P.T. Fracture Pelvis Multiple With Stable Disruption Of Pelvic Ring Open Initial (HCC) 04/21/2024 10:30 AM CDT Clinical Support Department of Rehabilitation Services in [address] [address] Yobany Bateman APRN, Geovanni., Jordan.Abelino. Rashaun Garcia, P.T. Fracture Pelvis Multiple With Stable Disruption Of Pelvic Ring Open Initial (HCC) 04/15/2024 Clinical Communication Department of Rehabilitation Services in [address] [address] Rashaun Garcia P.T. 04/07/2024 2:30 PM CDT Clinical Support Department of Rehabilitation Services in [address] [address] Yobany Bateman APRN, C.N.P., Rashaun Alonso P.T. Fracture Pelvis Multiple With Stable Disruption Of Pelvic Ring Open Initial (HCC) 04/05/2024 11:00 AM CDT Office Visit Department of Orthopedic Surgery in [address] [address] Nenita Elkins MPAS, P.A.-C. Fracture Pelvis Other Parts Closed Initial (HCC) (Primary Dx) 04/05/2024 10:00 AM CDT - 04/05/2024 11:59 PM CDT Hospital Encounter Department of Radiology, [facility], in [address] [address] Nenita Elkins MPAS, P.A.-C. Fracture Pelvis Other Parts Closed Initial (HCC) Discharge Disposition: Home or Self Care 04/05/2024 11:00 AM CDT Comprehensive Visit Division of Endocrinology in [address] [address] Nenita Elkins MPAS, P.A.-C. Cristi Tierney M.D. Osteoporosis Post Menopausal With Pathological Fracture Subsequent (Primary Dx); Fracture Pelvis Other Parts Closed Initial (HCC) 04/04/2024 2:30 PM CDT Comprehensive Visit Department of Rehabilitation Services in [address] [facility] [address] Cielo Bhakta M.D. Rashaun Garcia, PDannT. Fracture Pelvis Multiple With Stable Disruption Of Pelvic Ring Open Initial (HCC) (Primary Dx) 03/30/2024 1:45 PM CDT Clinical Communication Virtual Review in [place], [place] [address] [place] [address] Pre-visit Intake from Last 3 Months Allergies Active Allergy [...] Take 1,000 mcg by mouth daily. 10/25/2010 Active ferrous sulfate 325 mg (65 mg iron) tablet Take 1 tablet by mouth daily. 11/02/2013 Active MULTIVITAMIN ORAL Take 1 tablet by mouth daily. 10/25/2010 Active fluticasone propionate (FLONASE) 50 mcg/actuation nasal spray Administer 2 sprays into each nostril daily as needed for rhinitis or allergies. 16 g 12 05/14/2019 Active omeprazole (PriLOSEC) [address] capsule Take 1 capsule by mouth daily. 05/20/2019 Active cycloSPORINE (RESTASIS) 0.05 % ophthalmic emulsion Administer 1 drop into both eyes 2 (two) times a day. Active calcium carbonate-vitamin D3 1,500 mg (600 mg calcium)-10 mcg (400 Unit) per tablet Take 1 tablet by mouth 2 (two) times a day with meals. Active colchicine (COLCRYS) 0.6 mg tablet daily as needed. 10/21/2021 Active alendronate (FOSAMAX) 70 mg tablet TAKE 1 TABLET EVERY 7 DAYS (WEEKLY) ON AN EMPTY STOMACH, REMAIN UPRIGHT FOR AT LEAST 30 MINUTES 12 tablet 3 03/05/[address] tablet Take 81 mg by mouth daily. Active alendronate (FOSAMAX) 70 mg tablet TAKE 1 TABLET EVERY 7 DAYS (WEEKLY) ON AN EMPTY STOMACH REMAIN UPRIGHT FOR AT LEAST 30 MINUTES 12 tablet 3 09/10/2023 Active fexofenadine-pseu doephedrine (Rochelle-D) 60-120 mg per 12 hr tablet Take 1 tablet by mouth 2 (two) times a day. 180 tablet 1 02/18/2024 Active gabapentin (Neurontin) 100 mg capsule daily as needed. 11/02/2023 Active acetaminophen (TylenoL) 325 mg tablet Take 2 tablets (650 mg total) by mouth every 4 (four) hours as needed for pain for up to 14 days. 50 tablet 03/08/2024 Active losartan (Cozaar) 25 mg tablet Take 1 tablet (25 mg total) by mouth daily for 28 days. HOLD medication until restarted by PCP 03/09/2024 Active hydroCHLOROthiazi de 12.5 mg tablet Take 1 tablet (12.5 mg total) by mouth daily for 28 days. HOLD medication until restarted by PCP 28 tablet 03/09/2024 Active enoxaparin (Lovenox) 40 mg/0.4 mL injection Inject 0.4 mL (40 mg total) under the skin daily for 20 days. Through 03/30/24 for DVT prophylaxis 8 mL 03/10/2024 Active oxyCODONE (Roxicodone) 5 mg immediate release tablet Take 1 tablet (5 mg total) by mouth 3 (three) times a day as needed for pain for 7 days. 21 tablet 03/30/2024 Active meclizine (Antivert) 25 mg tablet Take 25 mg by mouth at bedtime as needed. 03/22/2024 Active acetaminophen (TylenoL) 500 mg tablet Take 1,000 mg by mouth every 6 (six) hours. 03/15/2024 Active alendronate (Fosamax) 70 mg tablet Take 70 mg by mouth over 168 hr. 09/10/2023 Active cyanocobalamin (Vitamin B-12) 1,000 mcg tablet Take 1,000 mcg by mouth daily. Active gabapentin (Neurontin) 100 mg capsule Take 100 mg by mouth at bedtime as needed. 03/10/2024 Active losartan (Cozaar) 50 mg tablet Take 50 mg by mouth daily. 03/22/2024 Active oxyCODONE (Roxicodone) 5 mg immediate release tablet Take 5 mg by mouth every 4 (four) hours as needed. 03/24/2024 Active vitamins A,C,Y-qeuu-uagxro (PreserVision AREDS) 7,160 Units-113 mg-100 Units per tablet Take 1 tablet by mouth daily. Active oxyCODONE (Roxicodone) 5 mg immediate release tabletIndications :Acute Pain Exception Take 1 tablet (5 mg total) by mouth 3 (three) times a day as needed for pain for 7 days. Indication: Acute Pain Exception. 21 tablet 04/12/2024 Active celecoxib (CeleBREX) 200 mg capsule Take 1 capsule (200 mg total) by mouth 2 (two) times a day. 60 capsule 1 04/19/2024 Active cephalexin (Keflex) 500 mg capsule Take 1 capsule (500 mg total) by mouth 2 (two) times a day for 7 days. 14 capsule 06/21/2024 06/28/2024 Active Active Problems Problem Noted Date Diagnosed [...] infant 06/29/2006,01/31/2002,12/28/2001 Hib (PRP-T) (ACTHIB, HIBERIX) 02/01/2007 Influenza, Unspecified 09/24/2016,2016,07/12/2015,07/10,07/26/2014,07/05/2013,07/04/2013 ,07/01/2013,08/02/2012,07/29/2012,07/15,09/25/2011,09/25/2011,10/13/201 0 MCV4 (Menactra)(Discontinued) 02/01/2007 MPSV4 02/01/2007 PCV13 07/10/2015 PPSV23 02/01/2007,02/01/2007 SARS-COV-2 (COVID-19) - MODERNA(Discontinued) 02/12/2022,07/09/2021 Td (Adult), adsorbed 05/29/2000 Tdap 02/16/2021,06/17/2011,11/04/2010 influenza trivalent high dos e (HD)(PF) 08/11/2018,08/10/2018,08/27/2017,08/2608/27/2017 influenza trivalent vaccine (6 months and older)(PF) 08/23/2009,08/22/2009,08/21/2009,08/20,08/20/2009 Social History Tobacco Use Types Packs/Day Years Used Date Smoking Tobacco: Never Smokeless Tobacco: Never Tobacco Cessation:Counseling Given: Not Answered Alcohol Use Standard Drinks/Week Comments Not Currently 0 (1 standard drink = 0.6 oz pur e alcohol) evolsoities Answer Date Recorded In the past 12 months has e [employer], gas, oil, or water [employer] threatened to shut off services in your [...] often do you attend chur ch or tenriism services? More than 4 times per year [...] and heating? Not hard at all 09/27/2022 [facility] of Occupat ional Health - Occupational Stress [...] your living situation today? I [facility] a [facility] to live 03/03/2024 Education Answer [...] 03/03/2024 3:30 PM CDT Plan of Treatment Not on file Medical Devices Implanted Type Area Loading Supervisor Device Identifier Shelf Expiration Date Model / [...] PANEL, S/P Routine 03/07/2024 9:21 PM CDT from Last 3 Months or Most Recently Relevant to Health Maintenance Results * DX Pelvis 3+ Views (04/05/2024 [...] IMG DIAGN OSTIC IMAGING PROCEDURES * (ABNORMAL) Basic Metabolic Panel (03/07/2024 9:21 [...] CDT Renée Brannon M.D. LAB BLOOD ADD-ON [facility] [address] [place] [address], [place] [facility] [address] [place] [address] from Last 3 Months or Most Recently Relevant to Health Maintenance Advance Directives For more information, please contact: [phone] * Full Code (Latest Code Status on [...] Answer Comments Full Code: Discussed Care Teams Saw Cleaner Relationship Specialty Start Date End Date Elsewhere, Pcp PCP - General Family Medicine 01/31/21
--- OUTSIDE RECORDS SUMMARY | 2024-06-24 11:39 | XMS_ITS | Continuity of Care Document ---
Author Name [facility] Organization [facility] Care Team Providers Care Java Application Developer Name Role Phone [facility] Unavailable Unavailable Medications Combined list of outpatient [...] EXELAN PHARMACE, 4 ea. BLIST PACK Active [id number] 3 2022 12 Pharmac y Data Transac tion Service Facilit y ALENDRONATE SODIUM (alendronat e sodium), 70 MG, TABLET, ORAL, MARLEX PHARM., 4 ea. BLIST PACK Active [id number] 4 2023 12 Pharmac y Data Transac tion Service Facilit y ALENDRONATE SODIUM (alendronat e sodium), 70 MG, TABLET, ORAL, MARLEX PHARM., 4 ea. BLIST PACK Active [id number] 4 2023 12 Pharmac y Data Transac tion Service Facilit y CYCLOSPORIN E (cyclospori ne), 0.05 %, DROPERETTE, OPHTHALMIC, [employer] 30 ea. VIAL Active [id number] 3 2022 180 Pharmac y Data Transac tion Service Facilit y CYCLOSPORIN E (cyclospori ne), 0.05 %, DROPERETTE, OPHTHALMIC, [employer] 30 ea. VIAL Active [id number] 4 2023 180 Pharmac y Data Transac tion Service Facilit y FLUOROURACI L (FLUOROURAC IL), 5 %, CREAM(GM), TOPICAL, [employer], 40 g TUBE Cancele d [id number] : 2023 0 Pharmac y Data Transac tion Service Facilit y FLUOROURACI L (FLUOROURAC IL), 5 %, CREAM(GM), TOPICAL, [employer], 40 g TUBE Active [id number] 4 2023 40 Pharmac y Data Transac tion Service Facilit y FLUTICASONE PROPIONATE (FLUTICASON E PROPIONATE) , 50 MCG, SPRAY SUSP, NASAL, [employer] INC[employer] 16 g AER W/ADAP Cancele d [id number] : 2023 0 Pharmac y Data Transac tion Service Facilit y FLUTICASONE PROPIONATE (FLUTICASON E PROPIONATE) , 50 MCG, SPRAY SUSP, NASAL, [employer] 16 g AER W/ADAP Active [id number] 4 2023 16 Pharmac y Data Transac tion Service Facilit y FLUTICASONE PROPIONATE (FLUTICASON E PROPIONATE) , 50 MCG, SPRAY SUSP, NASAL, PPSMS, INC., 16 g AER W/ADAP Active [id number] 4 2023 16 Pharmac y Data Transac tion Service Facilit y GABAPENTIN (gabapentin ), 100 MG, CAPSULE, ORAL, PPSMS[employer] INC., 1000 ea. BOTTLE Active [id number] 4 2023 90 Pharmac y Data Transac tion Service Facilit y HYDROCHLORO THIAZIDE (hydrochlor othiazide), 12.5 MG, TABLET, ORAL, PPSMS[employer] INC., 1000 ea. BOTTLE Active [id number] 4 2023 90 Pharmac y Data Transac tion Service Facilit y LOSARTAN POTASSIUM (losartan potassium), 25 MG, TABLET, ORAL, XLCARE PHARMACE, 1000 ea. BOTTLE Cancele d [id number] : 2023 0 Pharmac y Data Transac tion Service Facilit y LOSARTAN POTASSIUM (losartan potassium), 25 MG, TABLET, ORAL, XLCARE PHARMACE, 1000 ea. BOTTLE Active [id number] 4 2023 90 Pharmac y Data Transac tion Service Facilit y OMEPRAZOLE (omeprazole ), 40 MG, CAPSULE DR, ORAL, AUROBINDO PHARM, 500 ea. BOTTLE Active [id number] 4 2023 90 Pharmac y Data Transac tion Service Facilit y OMEPRAZOLE (omeprazole ), 40 MG, CAPSULE DR, ORAL, AUROBINDO PHARM, 500 ea. BOTTLE Active [id number] 4 2023 90 Pharmac y Data Transac tion Service Facilit y OMEPRAZOLE (omeprazole ), 40 MG, CAPSULE DR, ORAL, AUROBINDO PHARM, 500 ea. BOTTLE Active [id number] 3 2022 90 Pharmac y Data Transac tion Service Facilit y OMEPRAZOLE (omeprazole ), 40 MG, CAPSULE DR, ORAL, AUROBINDO PHARM, 500 ea. BOTTLE Active [id number] 4 2023 90 Pharmac y Data Transac tion Service Facilit y PAXLOVID (EUA) (nirmatrelv ir/ritonavi r), 150-100 MG, TAB DS PK, ORAL, P[facility]ER LABS., 20 ea. BLIST PACK Cancele d [id number] : 2023 0 Pharmac y Data Transac tion Service Facilit y PAXLOVID (EUA) (nirmatrelv ir/ritonavi r), 150-100 MG, TAB DS PK, ORAL, P[facility]S., 20 ea. BLIST PACK Active [id number] 4 2023 20 Pharmac y Data Transac tion Service Facilit y SHINGRIX (varicella- zoster virus glycoprotei n E,rec/AS01B adjuvant/PF ), 50 MCG/0.5, KIT, INTRAMUSC, GLAXOSMITHK LINE, 1 ea. KIT Active [id number] 4 2023 1 Pharmac y Data Transac tion Service Facilit y Immunizations Combined list of available immunizations from the Department of Defense and Veterans Affairs facilities. Immunization Series Date Given Administered By Site Reaction Lot Number CVX Code Drug Android Platform Developer Status Comments Source zoster recombinant 2023 () Not Given zoster recombina nt DoD Social History Combined list of available smoking, tobacco, and other social history from Department of Defense and Veterans Affairs facilities. Social History Type Response Date Comment Sour e This section is an empty social history section. DoD
--- OUTSIDE RECORDS SUMMARY | 2024-06-24 11:39 | XMS_ITS | Clinical Summary ---
Author Organization [facility] Address [address] [place] [address] Care Team Providers Care Call Out Clerk Name Role Phone Elsewhere, Pcp Primary Care Provider Unavailabl e Source Comments Patient records contain information from all sites at [facility]. For routine questions regarding patient records, call [phone] during business hours, M-F 8:00 AM - 5:00 PM Central Time. Record requests for emergency care only can be directed to [phone] at any time.[facility] Allergies Active Allergy Reactions Criticality Noted Date [...] (four) hours as needed. 03/24/2024 Active vitamins A,C,T-jewb-gmzrnq (PreserVision AREDS) 7,160 Units-113 mg-100 Units per [...] Clinical Support Department of Rehabilitation Services in [address] [address] Yobany Bateman APRN, C.NOlivia, Antonia Fuller P.T., D.P.T. Fracture Pelvis Multiple With Stable Disruption Of Pelvic Ring Open Initial (HCC) 05/02/2024 3:15 PM CDT Clinical Support Department of Rehabilitation Services in [address] [address] Yobany Bateman APRN, Ant, Antonia Fuller P.T., D.P.T. Fracture Pelvis Multiple With Stable Disruption Of Pelvic Ring Open Initial (HCC) 04/21/2024 10:30 AM CDT Clinical Support Department of Rehabilitation Services in [address] [address] Yobany Bateman APRN, EsperanzaNOlivia, Suhas.N.Rashaun Montague, P.T. Fracture Pelvis Multiple With Stable Disruption Of Pelvic Ring Open Initial (HCC) 04/15/2024 Clinical Communication Department of Rehabilitation Services in [address] [address] Rashaun Garcia, P.T. 04/07/2024 2:30 PM CDT Clinical Support Department of Rehabilitation Services in [address] [address] Yobany Bateman APRN, Angy.N.Igor, Suhas.N.PRashaun Mack, P.T. Fracture Pelvis Multiple With Stable Disruption Of Pelvic Ring Open Initial (HCC) 04/05/2024 11:00 AM CDT Office Visit Department of Orthopedic Surgery in [address] [address] Nenita Elkins MPAS, P.A.-C. Fracture Pelvis Other Parts Closed Initial (HCC) (Primary Dx) 04/05/2024 11:00 AM CDT Comprehensive Visit Division of Endocrinology in [address] [address] Nenita Elkins MPAS, P.A.-C. Cristi Tierney M.D. Osteoporosis Post Menopausal With Pathological Fracture Subsequent (Primary Dx); Fracture Pelvis Other Parts Closed Initial (HCC) 04/05/2024 10:00 AM CDT - 04/05/2024 11:59 PM CDT Hospital Encounter Department of Radiology, [facility] in [address] [address] Nenita Elkins MPAS, P.Jos eA.-C. Fracture Pelvis Other Parts Closed Initial (HCC) Discharge Disposition: Home or Self Care 04/04/2024 2:30 PM CDT Comprehensive Visit Department of Rehabilitation Services in [address] [address] Cielo Bhakta M.D. Beissel, Curtis J, P.TDann Fracture Pelvis Multiple With Stable Disruption Of Pelvic Ring Open Initial (HCC) (Primary Dx) 03/30/2024 1:45 PM CDT Clinical Communication Virtual Review in [place], [place] [address] [place] [address] Pre-visit Intake from Last 3 Months Immunizations Name Administration [...] trivalent vaccine (6 months and older)(PF) 08/23/2009,08/22/2009,08/21/2009,08/20,08/20/2009 Family History Medical History Relation Name Comments [...] 0.6 oz pur e alcohol) [facility] Sealedities Answer Date Recorded In the past 12 months has [facility] [employer], gas, oil, or water [employer] threatened to shut off services in your [...] often do you attend chur ch or jain services? More than 4 times per year 09/27/2022 Do you belong to any clubs o r organizations such as christian groups, unions, fraternal or athletic groups, or [...] and heating? Not hard at all 09/27/2022 [facility] Occupat ional Health - Occupational [...] your living situation today? [facility] 03/03/2024 Education Answer [...] 03/03/2024 3:30 PM CDT Plan of Treatment Health Maintenance Due Date Last Done Comments Depression Screening (Annual PHQ-2) 09/14/2023 Zoster Vaccines (3 of 3) 04/11/2024 02/15/2024, 09/14 COVID-19 Vaccine (2023-2 5 season) 2024 07/14/2023, 07/09/2022, 02/12/2022, Additional history exists Influenza Vaccine (#1) 2024 , 06/11/2023, 07/10/2022, Additional history exists Creatinine Level (Kidney Fun ction Test) 03/23/2025 03/23/2024, 03/22/2024, 03/07/2024, Additional history exists Potassium Level 03/23/2025 03/23/2024, 07/0 05/2024, 03/07/2024, Additional history exists Sodium Level 03/24/2025 03/24/2024, 07/09/2023, 03/23/2024, Additional history exists DTaP,Tdap,and Td Vaccines (4 - Td or Tdap) 02/16/2031 02/16/2021, 06/17/2011, 11/04/2010, Additional history exists Hepatitis A Vaccines Completed 07/30/2006, 12/29/19 02 Pneumococcal vaccine (65+ years) Completed 07/10/2015, 02/01/2007, 02/01/2007 RSV vaccine - (32-3 6 weeks) or 60+ years Completed 07/14/2023 Fall Risk Screen (Annual) Completed 03/09/2024 Medical Devices Implanted Type Area Garment Sew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 Device Identifier Shelf Expiration Date Model [...] spine andSI joints. Arterial calcifications. Nenita TREVINO PDannAElida. IMG DIAGN OSTIC IMAGING PROCEDURES * (ABNORMAL) [...] CDT Renée Brannon M.D. LAB BLOOD ADD-ON [facility] [address] [place] [address], [facility] [address] [place] [address] from Last 3 Months or Most Recently Relevant to Health Maintenance Advance Directives For more information, please contact: [phone] * Full Code (Latest Code Status on [...] Answer Comments Full Code: Discussed Care Teams Call Out Clerk Relationship Specialty Start Date End Date Elsewhere, Pcp PCP - General Family Medicine 01/31/21
--- OUTSIDE RECORDS SUMMARY | 2024-06-24 11:39 | XMS_ITS ---
Author Organization [facility] Address [address] [place] [address] Care Team Providers Care Graves Registration Specialist Name Role Phone Unavailable Unavailable Unavailable Surgery Details Not on file Complications Check Surgery Details section. Procedure Estimated Blood Loss Check Surgery Details section. Procedure Findings Check Surgery Details section. Procedure Specimens Taken Check Surgery Details section.
--- OUTSIDE RECORDS SUMMARY | 2024-06-24 11:39 | XMS_ITS | Clinical Summary ---
Author Organization [facility] Address [place], [place] [address] Care Team Providers Care Gas Generator Operator Name Role Phone Clinic, [facility] Primary Care Pr ovider Allergies Active [...] needed for Pain. 10 Tablet 03/24/2024 Active Active Problems Problem Noted Date Diagnosed Date Hyponatremia 03/22/2024 Hypertension 03/22/2024 Fracture of other parts of p oscar, initial encounter for closed fracture 03/03/2024 Gastroesophageal reflux disease 03/03/2024 Neuropathy, peripheral 03/03/2024 Other specified diseases of pancreas 03/03/2024 Arthritis, rheumatoid 10/25/2010 Overview (03/22/2024): Overview: Arthritis, rheumatoid* Encounters Date Type Department Care Team Description 03/25/2024 Orders Only [facility] Scanner 1 scan: (1-Ord) [facility] MULTIPLE LABS, 03/25/2024 03/25/2024 Nurse Triage [facility] [address] [place] [address] Maxine Demarco, GREEN MEAT GRADER Abnormal Lab Results 03/22/2024 3:55 PM CDT - 03/24/2024 1:00 PM CDT Hospital Encounter [facility] [address] [place] [address] Nir Bishop MD McQuistan, Brock Olson, DO Hyponatremia (Primary Dx); Pain Discharge Disposition: Detention Facility from Last 3 Months Social History Tobacco [...] 65+ (1 of 1 - PCV) 2002 RSV vaccine for adults or (1 - 1-dose 75+ series) 02/25/2012 COVID-19 vaccine series ( season) 2024 07/09/2022, 02/12/2022, 07/09/2021, Additional history exists Influenza for age 65+ 05/15/2024 Medical Devices Implanted Type Area Radio Interference Investigator Device Identifier Shelf Expiration Date Model / Serial / Lot Valve Barevelt 350mm [id number] [facility] - [id number] Implanted:Qty: 1 on 12/22/2011 at [facility] Right: Eye [employer] 06/13/2013 [id number] / [id number] / Cornea Glycerol Half - [id number] Implanted:Qty: 1 on 12/22/2011 at [facility] Right: Eye [facility] 09/19/2014 [id number]# / [id number] / Procedures Procedure Name Priority Date/Time Associated Diagnosis Comments SCAN-LABORATORY REPORT 03/25/2024 12:00 AM CDT SODIUM Timed 03/24/2024 10:51 AM CDT SODIUM Timed 03/24/2024 5:18 AM CDT PLATELET COUNT Timed 03/24/2024 5:18 AM CDT from Last 3 Months Results * SCAN-LABORATORY REPORT (03/25/2024 12:00 AM CDT) Scanner OTHER * (ABNORMAL) SODIUM (03/24/2024 10:51 AM CDT) Only the most recent of2 resultswithin the time period is included. SODIUM 132(L) 136 - 145 mmol/L 03/24/2024 11:05 AM CDT [facility] Blood BLOOD SPECIMEN / Unknown Venipuncture / Unknown 03/24/2024 10:51 AM CDT 03/24/2024 10:54 AM CDT Brock Harrison DO CHEMISTRY Performing Organization Address City/[facility]/ZIP Co de Phone Number [facility] [address] [place] [address], [place] [phone] * PLATELET COUNT (03/24/2024 5:18 AM CDT) PLATELET COUNT 229 140 - 440 thou/cu mm 03/24/2024 5:35 AM CDT [facility] MPV 8.7 6.5 - 11.0 fL 03/24/2024 5:35 AM CDT [facility] Blood BLOOD SPECIMEN / Unknown Butterfly / Unknown 03/24/2024 5:18 AM CDT 03/24/2024 5:26 AM CDT Brock Harrison DO HEMATOLOGY [facility] [address] [place] [address], [place] [phone] from Last 3 Months Advance Directives * Full Code (Latest Code Status on File) Date Activated Date Inactivated Comments 03/22/2024 8:13 PM 03/24/2024 3:39 PM Question Answer Comments Code Status Discussion: Reviewed Preferences * Full Code Date Activated Date Inactivated Comments 12/22/2011 12:34 PM 12/22/2011 6:48 PM Care Teams Gas Generator Operator Relationship Specialty Start Date End Date Clinic, [facility] [address] [place] [address] PCP - General 04/25/24
--- OUTSIDE RECORDS SUMMARY | 2024-06-24 11:39 | XMS_ITS | Encounter Summary ---
Author Organization [facility] Address [address] [place] [address] Care Team Providers Care Spot Washer Name Role Phone Elsewhere, Pcp Primary Care Provider Unavailabl e Reason for Visit * Physical Therapy (Routine) - Canceled Specialty Diagnoses / Procedures Referred By Violeta t Referred To Contact Diagnoses Fracture Pelvis Multiple With Stable Disruption Of Pelvic Ring Open Initial (HCC) Procedures PT Ongoing treatment Yobany Bateman APRN, C.N.P., D.N.P. [address] [place] [phone] [facility] Referral ID Status Reason Start Date Expiration Date V isits Requested Visits Authorized [id number] Canceled 04/04/2024 04/04/2025 99 99 Encounter Details Date Type Department Care Team (Latest Contact Info) Description 04/21/2024 10:30 AM CDT Clinical Support Department of Rehabilitation Services in [address] [phone] Yobany Bateman APRN, C.N.P., D.N.P. [address] [place] [phone] Rashaun Garcia, P.T. [address] [place] [phone] Fracture Pelvis Multiple With Stable Disruption Of Pelvic Ring Open Initial (HCC) Social History Tobacco Use Types Packs/Day Years Used Date Smoking Tobacco: Never Smokeless Tobacco: Never Alcohol Use Standard Drinks/Week Comments Not Currently 0 (1 standard drink = 0.6 oz pur e alcohol) [facility] Utilities Answer Date Recorded In the [...] any clubs o r organizations such as jew groups, unions, fraternal or athletic groups, or [...] and heating? Not hard at all 09/27/2022 [facility]ational Stress Questionnaire Answer Date Recorded [...] your living situation today? [facility] 03/03/2024 Education Answer Date Recorded What is the highest level of school you have completed or the highest degree you have received? 12th grade 09/27/2022 Sex and Gender Information Value Date Recorded Sex Assigned at Not on file Gender Identity Not on file Sexual Orientation Not on file documented as of this encounter Progress Notes * Rashaun Garcia P.T. - 04/21/2024 10:30 AM CDT Subjective: [...] Total Score: 0 11/02/19 14 2:53 PM SCALE MANAGER documented as of this encounter Care Teams Spot Washer Relationship Specialty Start Date End Date Elsewhere, Pcp PCP - General Family Medicine 01/31/21 documented as of this encounter
--- OUTSIDE RECORDS SUMMARY | 2024-06-24 11:39 | XMS_ITS | Encounter Summary ---
Author Organization [facility] Address [address] [place] [address] Care Team Providers Care Heat Treat Puller Name Role Phone Elsewhere, Pcp Primary Care Provider Unavailabl e Reason for Visit * Physical Therapy (Routine) - Canceled Specialty Diagnoses / Procedures Referred By Violeta t Referred To Contact Diagnoses Fracture Pelvis Multiple With Stable Disruption Of Pelvic Ring Open Initial (HCC) Procedures PT Ongoing treatment Yobany Bateman APRN, C.N.P., D.N.P. [address] [place] [phone] [facility] Referral ID Status Reason Start Date Expiration Date V isits Requested Visits Authorized [id number] Canceled 04/04/2024 04/04/2025 99 99 Encounter Details Date Type Department Care Team (Latest Contact Info) Description 04/07/2024 2:30 PM CDT Clinical Support Department of Rehabilitation Services in [address] [phone] Yobany Bateman APRN, C.N.P., D.N.P. [address] [place] [address] [phone] Rashaun Garcia, P.T. [address] [place] [phone] Fracture Pelvis Multiple With Stable Disruption Of Pelvic Ring Open Initial (HCC) Social History Tobacco Use Types Packs/Day Years Used Date Smoking Tobacco: Never Smokeless Tobacco: Never Alcohol Use Standard Drinks/Week Comments Not Currently 0 (1 standard drink = 0.6 oz pur e alcohol) [facility] Utilities Answer Date Recorded In the [...] How often do you attend chur or sikh services? More than 4 times per year [...] and heating? Not hard at all 09/27/2022 [facility]ational [facility] Questionnaire Answer Date Recorded [...] your living situation today? I have a [facility] place to live 03/03/2024 Education Answer Date Recorded What is the highest level of school you have completed or the highest degree you have received? 12th grade 09/27/2022 Sex and Gender Information Value Date Recorded Sex Assigned at Not on file Gender Identity Not on file Sexual Orientation Not on file documented as of this encounter Progress Notes * Rashaun Garcia P.T. - 04/07/2024 2:30 PM CDT Physical [...] Total Score: 0 11/02/19 14 2:53 PM RELIEF CHARGE NURSE documented as of this encounter Care Teams Heat Treat Puller Relationship Specialty Start Date End Date Elsewhere, Pcp PCP - General Family Medicine 01/31/21 documented as of this encounter
--- OUTSIDE RECORDS SUMMARY | 2024-06-24 11:39 | XMS_ITS | Encounter Summary ---
Author Organization [facility] Address [address] [place] [address] Care Team Providers Care Program Support Specialist Name Role Phone Elsewhere, Pcp Primary Care Provider Unavailabl e Reason for Visit * Physical Therapy (Routine) - Canceled Specialty Diagnoses / Procedures Referred By Violeta t Referred To Contact Diagnoses Fracture Pelvis Multiple With Stable Disruption Of Pelvic Ring Open Initial (HCC) Procedures PT Ongoing treatment Yobany Bateman APRN, C.N.P., D.N.P. [address] [place] [phone] [facility] Referral ID Status Reason Start Date Expiration Date V isits Requested Visits Authorized [id number] Canceled 04/04/2024 04/04/2025 99 99 Encounter Details Date Type Department Care Team (Latest Contact Info) Description 05/11/2024 12:30 PM CDT Clinical Support Department of Rehabilitation Services in [address] [phone] Yobany Bateman APRN, C.N.P., D.N.P. [address] [place] [address] [phone] Antonia Raines P.T., D.P.T. [address] [place] [phone] Fracture Pelvis Multiple With Stable Disruption Of Pelvic Ring Open Initial (HCC) Social History Tobacco Use Types Packs/Day Years Used Date Smoking Tobacco: Never Smokeless Tobacco: Never Alcohol Use Standard Drinks/Week Comments Not Currently 0 (1 standard drink = 0.6 oz pur e alcohol) [facility] Utilities Answer Date Recorded In the [...] you attend [facility] or presybeterian services? More than 4 times per year 09/27/2022 Do you belong to any clubs o r organizations such as congregation groups, unions, fraternal or athletic groups, or [...] and heating? Not hard at all 09/27/2022 [facility] Occupat ional Health - Occupational Stress [...] as of this encounter Progress Notes * Antonia Raines P.T. - 05/11/2024 12:30 PM CDT Physical Therapy Outpatient Treatment Note SUBJECTIVE Patient's Name: Kathryn Leon Referring Provider: Yobany Bateman APRN, C.N.* Visit Diagnosis: 1. Fracture Pelvis Multiple With Stable Disruption Of Pelvic Ring Open Initial (HCC) Payor: MEDICARE / Plan: MEDICARE A AND B / Product Type: Medicare / No data recorded Epic Visit Count: 5 Patient comments: Kathryn reports her L buttock pain has improved and she is able to tolerate sitting with less discomfort. She has been using the towel roll in a U shape to off load the ischial tuberosity when sitting for longer periods of time. She is able to ambulate at home without a SEC but stillis performing stairs in a step to pattern OBJECTIVE Pain: L buttock pain very minor seated, she is able to demonstrate equal WB while seated Gait: patient uses SEC every 3rd-4th step Ortho Exam TREATMENT Treatment today consisted of: Therapeutic Exercise: - monster walk forward with UE support on counter top x 5 ft x 3 - Long arc quads x 10 x 2 BLE - Sit to Stand, variations holding 5 lbs BUE, holding 5 lbs with arm by side, shoulder flexion withtransition to stance - 1 x daily - 7 x weekly - 3 sets - 10 reps - Step Up on her single step in her dining room, instructed her to wait until she is able to perform stairs in a reciprocal pattern without pain - 1 x daily - 7 x weekly - 3 sets - 10 reps - Standing Romberg to 3/4 Tandem Stance - 1 x daily - 7 x weekly - 1 sets - 2 reps - 30 seconds hold - Tandem Stance - 1 x daily - 7 x weekly - 1 sets - 2 reps - 30 seconds hold Home Exercise Program/Education: above exercises in addition to walking Patient reports good HEP compliance. Assessment Clinical Impression: Kathryn is making good progress and she will continue to progress in strength andfunctionality as her fx heals without further PT intervention. I recommended she DC SEC in the community as she is using it sparingly during gait. If she has questions or concerns she was informed toreach out to me via the patient portal. Rehab Potential: Good Clinical Presentation: Stable Progress: Progressing toward goals Functional Goals and Timeframes: PT Goal #1: To increase overall strength of the hips/core to 4+/5. PT Goal #1 to be achieved by: 05/09/24 PT Goal #1 Status: Progressing PT Goal #2: Patient is able to ascending/descend stairs using 1 rail reciprocating as she goes. PT Goal #2 to be achieved by: 05/09/24 PT Goal #2 Status: Progressing PT Goal #3: Patient is able ambulate independently with a standard cane for distance of 50 ft or greater. PT Goal #3 to be achieved by: 05/09/24 PT Goal #3 Status: Achieved No data recorded Plan Physical Therapy Attestation Statement: Patient agrees with the plan of care and goals. Plan: Discontinue PT PT Outpatient Duration (days): 45 days Treatment/Interventions: Therapeutic exercise Time Spent with Patient Therapeutic Interventions Therapeutic Exercise (min): 20 min Time Tracking Total Timed Units (min): 20 min Total Treatment Time (min): 20 min DISCHARGE STATUS Patient discharged from therapy after this session. Refer to plan of care for first appointment date and recorded visit counts. REASON FOR DISCHARGE: see above progress report on current status and goal status. DISCHARGE RECOMMENDATIONS: Patient would be advised to continue with her previously documented homeprogram. Antonia Raines P.T. 05/11/2024 documented in this encounter Plan of Treatment Not on file documented as of this encounter Visit Diagnoses Diagnosis Fracture Pelvis Multiple With Stable Disruption Of Pelvic Ring Open Initial (HCC) documented in this encounter Additional Health Concerns Assessment Noted Time PHQ-9 Depression Total Score: 0 11/02/19 14 2:53 PM PLANT SCIENCE PROFESSOR documented as of this encounter Care Teams Program Support Specialist Relationship Specialty Start Date End Date Elsewhere, Pcp PCP - General Family Medicine 01/31/21 documented as of this encounter
--- OUTSIDE RECORDS SUMMARY | 2024-06-24 11:39 | XMS_ITS | Encounter Summary ---
Author Organization [facility] Address [address] [place] [address] Care Team Providers Care Product Manager Financial Services Name Role Phone Elsewhere, Pcp Primary Care Provider Unavailabl e Reason for Visit * Physical Therapy (Routine) - Canceled Specialty Diagnoses / Procedures Referred By Violeta t Referred To Contact Diagnoses Fracture Pelvis Multiple With Stable Disruption Of Pelvic Ring Open Initial (HCC) Procedures PT Ongoing treatment Yobany Bateman APRN, C.N.P., D.N.P. [address] [place] [phone] [facility] Referral ID Status Reason Start Date Expiration Date V isits Requested Visits Authorized [id number] Canceled 04/04/2024 04/04/2025 99 99 Encounter Details Date Type Department Care Team (Latest Contact Info) Description 05/02/2024 3:15 PM CDT Clinical Support Department of Rehabilitation Services in [address] [phone] Yobany Bateman APRN, C.N.P., D.N.P. [address] [place] [address] [phone] Antonia Raines P.T., D.P.T. [address] [place] [phone] Fracture Pelvis Multiple With Stable Disruption Of Pelvic Ring Open Initial (HCC) Social History Tobacco Use Types Packs/Day Years Used Date Smoking Tobacco: Never Smokeless Tobacco: Never Alcohol Use Standard Drinks/Week Comments Not Currently 0 (1 standard drink = 0.6 oz pur e alcohol) [facility] Utilities Answer Date Recorded In the [...] How often do you attend [facility] or christianity services? More than 4 times per year 09/27/2022 Do you belong to any clubs o r organizations such as mormonism groups, unions, fraternal or athletic groups, or [...] and heating? Not hard at all 09/27/2022 [facility] of Occupat ional Health - Occupational Stress [...] Progress Notes * Antonia Raines P.T. - 05/02/2024 3:15 PM CDT Physical Therapy Outpatient Treatment Note SUBJECTIVE Patient's Name: Kathryn Leon Referring Provider: Yobany Bateman APRN, C.N.* Visit Diagnosis: 1. Fracture Pelvis Multiple With Stable Disruption Of Pelvic Ring Open Initial (HCC) Payor: MEDICARE / Plan: MEDICARE A AND B / Product Type: Medicare / No data recorded Epic Visit Count: 4 Patient comments: Kathryn reports her symptoms have improved since her last PT visit. She states she is walking for exercise and not doing any specific exercises. She reports pain in the L buttock when seated . OBJECTIVE Pain: L buttock pain in seated position and with palpation of L ischial tuberosity pain free with palpation of L HS tendon, piriformis, obturator internus Lumbar AROM flexion and extension do not provoke L buttock symptoms Hip AROM flexion, abduction, ER and IR with slight irritation at end range of IR and ER bilaterallybut no change in pain to L buttock MMT L HS 4/5 pain free Ortho Exam TREATMENT Treatment today consisted of: Therapeutic Exercise: Side stepping increased pain did not add Added monster walk forward with UE support on counter top x 5 ft x 3 Added sit to stand from standard chair height x 10 Step up/down from standard stair height produced R groin pain, did not add Long arc quads x 10 x 2 BLE Therapeutic Functional Activity: Instructed patient to sit on a towel roll shaped like a U to relieve pressure on ischial tuberosity Home Exercise Program/Education: above exercises in addition to walking Patient reports good HEP compliance. Assessment Clinical Impression: patient reports she is able to sit without pain on L ischial tuberosity when it is offloaded. She is point tender to the bone and I suspect it is bruised as she reports the feeling is sore and achy and 2 xray's did not demonstrate abnormalities to this area. Rehab Potential: Good Progress: Slow progress, limited activity tolerance Functional Goals and Timeframes: PT Goal #1: To increase overall strength of the hips/core to 4+/5. PT Goal #1 to be achieved by: 05/09/24 PT Goal #2: Patient is able to ascending/descend stairs using 1 rail reciprocating as she goes. PT Goal #2 to be achieved by: 05/09/24 PT Goal #3: Patient is able ambulate independently with a standard cane for distance of 50 ft or greater. PT Goal #3 to be achieved by: 05/09/24 No data recorded Plan Physical Therapy Attestation Statement: Patient agrees with the plan of care and goals. Plan: Continue with current plan Number of Outpatient PT Visits: 8 PT Outpatient Duration (days): 45 days Plan for next session: progress strengthening exercises Treatment/Interventions: Therapeutic exercise Time Spent with Patient Therapeutic activity 5 minutes Therapeutic exercise 20 minutes documented in this encounter Plan of Treatment Not on file documented as of this encounter Visit Diagnoses Diagnosis Fracture Pelvis Multiple With Stable Disruption Of Pelvic Ring Open Initial (HCC) documented in this encounter Additional Health Concerns Assessment Noted Time PHQ-9 Depression Total Score: 0 11/02/19 14 2:53 PM DEER FARMER documented as of this encounter Care Teams Product Manager Financial Services Relationship Specialty Start Date End Date Elsewhere, Pcp PCP - General Family Medicine 01/31/21 documented as of this encounter
--- OUTSIDE RECORDS SUMMARY | 2024-06-24 11:39 | XMS_ITS | Encounter Summary ---
Author Organization [facility] Address [address] [place] [address] Care Team Providers Care Digital Learning Platforms Manager Name Role Phone Elsewhere, Pcp Primary Care Provider Unavailabl e Encounter Details Date Type Department Care Team (Latest Contact Info) Description 04/15/2024 Clinical Communication Department of Rehabilitation Services in [address] [phone] Rashaun Garcia, PDannTDann [address] [place] [phone] Social History Tobacco Use Types Packs/Day Years Used Date Smoking Tobacco: Never Smokeless Tobacco: Never Alcohol Use Standard Drinks/Week Comments Not Currently 0 (1 standard drink = 0.6 oz pur e alcohol) [facility] Utilities Answer Date Recorded In the past 12 months has [facility] [employer], gas, oil, or water [employer] threatened to shut off services in your [...] any clubs o r organizations such as yazidism groups, unions, fraternal or athletic groups, or [...] your living situation today? I have a [facility] place to live 03/03/2024 Education Answer [...] Score: 0 11/02/19 14 2:53 PM SUPERVISOR AGRICULTURAL EDUCATION documented as of this encounter Care Teams Digital Learning Platforms Manager Relationship Specialty Start Date End Date Elsewhere, Pcp PCP - General Family Medicine 01/31/21 documented as of this encounter
--- OUTSIDE RECORDS SUMMARY | 2024-06-24 11:40 | XMS_ITS | Encounter Summary ---
Author Organization [facility] Address [address] [place] [address] Care Team Providers Care Recyclable Products Sorter Name Role Phone Elsewhere, Pcp Primary Care Provider Unavailabl e Reason for Referral * Outpatient (Routine) - Closed Specialty Diagnoses / Procedures Referred By Contac t Referred To Contact Diagnoses Fracture Pelvis Other Parts Closed Initial (HCC) Procedures DX Pelvis 3+ Views DX Pelvis 1-2 Views Nenita Elkins MPAS PDannA.-CDann [address] [place] [phone] [facility] Referral ID Status Reason Start Date Expiration Date Visits Re quested Visits Authorized [id number] Closed 03/03/2024 03/03/2025 1 1 * Outpatient (Routine) - Closed Specialty Diagnoses / Procedures Referred By Contac t Referred To Contact Endocrinology Diagnoses Fracture Pelvis Other Parts Closed Initial (HCC) Nenita Elkins MPAS PDannADann-CDann [address] [place] [phone] [facility] Referral ID Status Reason Start Date Expiration Date Visits Re quested Visits Authorized [id number] Closed 03/03/2024 09/02/2025 1 1 * Outpatient (Routine) - Closed Specialty Diagnoses / Procedures Referred By Violeta keating Referred To Contact Orthopedic Surgery Nenita Elkins MPAS, P.A.-[place] [address] [place] [phone] [facility] Referral ID Status Reason Start Date Expiration Date Visits Re quested Visits Authorized [id number] Closed 03/03/2024 09/02/2025 1 1 Scheduling Instructions BRENDA Bernstein W/ ENDO XR prior. appt between - Encounter Details Date Type Department Care Team (Late st Contact Info) Description 03/03/2024 Orders Only Department of Orthopedic Surgery in [place], [place] [address] [place] [phone] Nenita Elkins MPAS, P.A.-C. [address] [place] [phone] Fracture Pelvis Other Parts Closed Initial (HCC) (Primary Dx) Social History Tobacco Use Types Packs/Day Years Used Date Smoking Tobacco: Never Smokeless Tobacco: Never Alcohol Use Standard Drinks/Week Comments Not Currently 0 (1 standard drink = 0.6 oz pur e alcohol) [facility] Utilities Answer Date Recorded In the past 12 months has [facility] [employer], oil, or water [employer] threatened to shut off services in your [...] any clubs o r organizations such as moravian groups, unions, fraternal or athletic groups, or [...] and heating? Not hard at all 09/27/2022 [facility] Occupat ional Health - Occupational [...] your living situation today? I have a [facility] place to live 03/03/2024 Education Answer [...] Total Score: 0 11/02/19 14 2:53 PM FIELD HUMAN RESOURCES MANAGER documented as of this encounter Care Teams Recyclable Products Sorter Relationship Specialty Start Date End Date Elsewhere, Pcp PCP - General Family Medicine 01/31/21 documented as of this encounter
--- OUTSIDE RECORDS SUMMARY | 2024-06-24 11:40 | XMS_ITS | Encounter Summary ---
Author Organization [facility] Address [address] [place] [address] Care Team Providers Care Transportation Design Engineer Name Role Phone Elsewhere, Pcp Primary Care Provider Unavailabl e Reason for Visit * Reason Onset Date Comments Pre-visit Intake 03/30/2024 Encounter Details Date Type Department Care Team (Latest Contact Info) Description 03/30/2024 1:45 PM CDT Clinical Communication Virtual Review in [place], [place] [address] [place] [phone] Pre-visit Intake Social History Tobacco Use Types Packs/Day Years Used Date Smoking Tobacco: Never Smokeless Tobacco: Never Tobacco Cessation:Counseling Given: Not Answered Alcohol Use Standard Drinks/Week Comments Not Currently 0 (1 standard drink = 0.6 oz pur e alcohol) [facility] Utilities Answer Date Recorded In the past [address] [facility] [employer], gas, oil, or water [employer] threatened to shut off services in your [...] How often do you attend chur or christianity services? More than 4 times [...] and heating? Not hard at all 09/27/2022 [facility] of Occupat ional Health - [...] your living situation today? I have a [facility] place to live 03/03/2024 Education [...] Total Score: 0 11/02/19 14 2:53 PM LEATHER STRIPPING MACHINE OPERATOR documented as of this encounter Care Teams Transportation Design Engineer Relationship Specialty Start Date End Date Elsewhere, Pcp PCP - General Family Medicine 01/31/21 documented as of this encounter
--- OUTSIDE RECORDS SUMMARY | 2024-06-24 11:40 | XMS_ITS | Encounter Summary ---
Author Organization [facility] Address [address] [place] [address] Care Team Providers Care Peace Officer Name Role Phone Elsewhere, Pcp Primary Care Provider Unavailabl e Reason for Visit * Reason Comments Consult * Outpatient (Routine) - Closed Specialty Diagnoses / Procedures Referred By Violeta keating Referred To Contact Endocrinology Diagnoses Fracture Pelvis Other Parts Closed Initial (HCC) Nenita Elkins MPAS, P.A.-C. [address] [place] [phone] [facility] Referral ID Status Reason Start Date Expiration Date Visits Re quested Visits Authorized [id number] Closed 03/03/2024 09/02/2025 1 1 Encounter Details Date Type Department Care Team (Latest Contact Info) Description 04/05/2024 11:00 AM CDT Comprehensive Visit Division of Endocrinology in [place], [place] [address] [place] [phone] Nenita Elkins MPAS, P.A.-C. [address] [place] [phone] Cristi Tierney M.D. 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 More than 4 times per year 09/27/2022 Do you belong to any clubs o r organizations such as yarsani groups, unions, fraternal or athletic groups, or [...] heating? Not hard at all 09/27/2022 [facility] [place] of Occupat ional Health - Occupational Stress [...] your living situation today? [facility] 03/03/2024 Education Answer [...] #1 Fracture Pelvis Other Parts Closed Initial ([facility]) - Endocrinology - Fragility fracture consult (clinic) [...] Total Score: 0 11/02/19 14 2:53 PM FLOWER POT PRESS OPERATOR documented as of this encounter Care Teams Peace Officer Relationship Specialty Start Date End Date Elsewhere, Pcp PCP - General Family Medicine 01/31/21 documented as of this encounter
--- OUTSIDE RECORDS SUMMARY | 2024-06-24 11:40 | XMS_ITS | Encounter Summary ---
Author Organization [facility] Address [address] [place] [address] Care Team Providers Care Energy Crop Farmer Name Role Phone Elsewhere, Pcp Primary Care Provider Unavailabl e Reason for Visit * Reason Comments Follow-up * Outpatient (Routine) - Closed Specialty Diagnoses / Procedures Referred By Violeta keating Referred To Contact Orthopedic Surgery Nenita Elkins MPAS, P.A.-C. [address] [place] [phone] [facility] Referral ID Status Reason Start Date Expiration Date Visits Re quested Visits Authorized [id number] Closed 03/03/2024 09/02/2025 1 1 Encounter Details Date Type Department Care Team (Late st Contact Info) Description 04/05/2024 11:00 AM CDT Office Visit Department of Orthopedic Surgery in [place], [place] [address] [place] [phone] Nenita Elkins MPAS, P.A.-C. [address] [place] [phone] Fracture Pelvis Other Parts Closed Initial (HCC) (Primary Dx) Social History Tobacco Use Types Packs/Day Years Used Date Smoking Tobacco: Never Smokeless Tobacco: Never Alcohol Use Standard Drinks/Week Comments Not Currently 0 (1 standard drink = 0.6 oz pur e alcohol) [facility] Utilities Answer Date Recorded In the past 12 months has th e electric, gas, oil, or water [employer] threatened to shut off services in [...] often do you attend chur ch or nondenominational services? More than 4 times per year 09/27/2022 Do you belong to any clubs o r organizations such as baptist groups, unions, fraternal or athletic groups, or [...] and heating? Not hard at all 09/27/2022 [facility] of Occupat ional Health - Occupational Stress [...] your living situation today? I have a [facility] place to live 03/03/2024 Education [...] She has recently transitioned from a construction shelter facility to home with outpatient PT, and [...] Total Score: 0 11/02/19 14 2:53 PM ADMITTING COORDINATOR documented as of this encounter Care Teams Energy Crop Farmer Relationship Specialty Start Date End Date Elsewhere, Pcp PCP - General Family Medicine 01/31/21 documented as of this encounter
--- OUTSIDE RECORDS SUMMARY | 2024-06-24 11:40 | XMS_ITS | Encounter Summary ---
Author Organization [facility] Address [address] [place] [address] Care Team Providers Care Accountant Cost Name Role Phone Elsewhere, Pcp Primary Care Provider Unavailabl e Reason for Visit * Appointment Request (Routine) - Closed Specialty Diagnoses / Procedures Referred By Violeta keating Referred To Contact Physical Therapy Referral ID Status Reason Start Date Expiration Date Visits Re quested Visits Authorized [id number] Closed 04/04/2024 04/04/2025 1 1 Encounter Details Date Type Department Care Team (Latest Contact Info) Description 04/04/2024 2:30 PM CDT Comprehensive Visit Department of Rehabilitation Services in [address] [phone] Cielo Bhakta M.D. [address] [place] [address] [phone] Rashaun Garcia P.T. [address] [place] [address] [phone] Fracture Pelvis Multiple With Stable Disruption Of Pelvic Ring Open Initial (HCC) (Primary Dx) Social History Tobacco Use Types Packs/Day Years Used Date Smoking Tobacco: Never Smokeless Tobacco: Never Alcohol Use Standard Drinks/Week Comments Not Currently 0 (1 standard drink = 0.6 oz pur e alcohol) [facility] Utilities Answer Date Recorded In the past 12 months has [employer], oil, or water [employer] threatened to shut off services in your [...] How often do you attend chur or protestant services? More than 4 times per year [...] and heating? Not hard at all 09/27/2022 [facility] [place] of Occupat ional Health - Occupational Stress [...] your living situation today? I have a [facility] place to live 03/03/2024 Education Answer Date Recorded What is the highest level of school you have completed or the highest degree you have received? 12th grade 09/27/2022 Sex and Gender Information Value Date Recorded Sex Assigned at Not on file Gender Identity Not on file Sexual Orientation Not on file documented as of this encounter Consult Notes * Rashaun Garcia, P.T. - 04/04/2024 2:30 PM CDT Physical Therapy Outpatient Evaluation/Treatment SUBJECTIVE Patient's Name: Kathryn Leon Referring Provider: No ref. provider found Visit Diagnosis: 1. Fracture Pelvis Multiple With Stable Disruption Of Pelvic Ring Open Initial ([facility]) Reason for Referral: Patient is status post right pelvic fracture. Onset Date: 03/02/24 Payor: MEDICARE / Plan: MEDICARE A AND B / Product Type: Medicare / Affresol Visit Count: 1 PERTINENT MEDICAL / SURGICAL HISTORY: Patient Active Problem List Diagnosis Arthritis Rheumatoid ([facility]) Vertigo Vertigo Benign Paroxysmal Positional Bilateral Osteoporosis Fracture Pelvis Other Parts Closed Initial ([facility]) Loss Hearing Sensorineural Bilateral Gastroesophageal Reflux Disease NOS Neuropathy Peripheral Mononeuropathy Lower Limb Right History Of Falling Hemorrhage Lesion Pancreas Failure Renal Acute (Acute Kidney Injury) ([facility]) Past Surgical History: Procedure Laterality Date BREAST [...] misstepped. She recently returned home from the prison. Presently, she has little pain. She can [...] in short sitting we hadher work on [id number] exercises working shallow squats. Assessment Clinical Impression: [...] Total Score: 0 11/02/19 14 2:53 PM SENIOR LIVING SALES COUNSELOR documented as of this encounter Care Teams Accountant Cost Relationship Specialty Start Date End Date Elsewhere, Pcp PCP - General Family Medicine 01/31/21 documented as of this encounter
--- OUTSIDE RECORDS SUMMARY | 2024-06-24 11:40 | XMS_ITS | Encounter Summary ---
Author Organization [facility] Address [address] [place] [address] Care Team Providers Care Denture Technician Name Role Phone Elsewhere, Pcp Primary Care Provider Unavailabl e Encounter Details Date Type Department Care Team (Late st Contact Info) Description 03/10/2024 Orders Only Department of Orthopedic Surgery in [place], [place] [address] [place] [phone] Nenita Elkins, MPAS, P.A.-C. [address] [place] [phone] Social History Tobacco Use Types Packs/Day Years Used Date Smoking Tobacco: Never Smokeless Tobacco: Never Alcohol Use Standard Drinks/Week Comments Not Currently 0 (1 standard drink = 0.6 oz pur e alcohol) [facility] Utilities Answer Date Recorded In the past 12 months has e [employer], gas, oil, or water [employer] threatened to shut off services in your [...] How often do you attend chur or confucianism services? More than 4 times per year 09/27/2022 Do you belong to any clubs o r organizations such as worship groups, unions, fraternal or athletic groups, or [...] and heating? Not hard at all 09/27/2022 [facility] of Occupat ional Health - Occupational [...] Total Score: 0 11/02/19 14 2:53 PM ELECTION WATCHER documented as of this encounter Care Teams Denture Technician Relationship Specialty Start Date End Date Elsewhere, Pcp PCP - General Family Medicine 01/31/21 documented as of this encounter
--- OUTSIDE RECORDS SUMMARY | 2024-06-24 11:40 | XMS_ITS | Encounter Summary ---
Author Organization [facility] Address [address] [place] [address] Care Team Providers Care Prep Cook Name Role Phone Elsewhere, Pcp Primary Care Provider Unavailabl e Reason for Visit * Reason Onset Date Comments Lovenox Injections 03/10/2024 Encounter Details Date Type Department Care Team (Latest Contact Info) Description 03/10/2024 Clinical Communication Department of Orthopedic Surgery in [place], [place] [address] [place] [phone] Nenita Elkins, MPAS, P.A.-C. [address] [place] [phone] Lovenox Injections Social History Tobacco Use Types [...] How often do you attend chur or quaker services? More than 4 times per year 09/27/2022 Do you belong to any clubs o r organizations such as shinto groups, unions, fraternal or athletic groups, or [...] and heating? Not hard at all 09/27/2022 [facility] [place] of Occupat ional Health - Occupational Stress [...] your living situation today? I have a [employer] place to live 03/03/2024 Education Answer Date [...] Total Score: 0 11/02/19 14 2:53 PM BRAID PATTERN SETTER documented as of this encounter Care Teams Prep Cook Relationship Specialty Start Date End Date Elsewhere, Pcp PCP - General Family Medicine 01/31/21 documented as of this encounter
--- OUTSIDE RECORDS SUMMARY | 2024-06-24 11:40 | XMS_ITS | Encounter Summary ---
Author Organization [facility] Address [address] [place] [address] Care Team Providers Care Air Bag Curer Name Role Phone Elsewhere, Pcp Primary Care Provider Unavailabl e Reason for Referral * Outpatient (Routine) - Closed Specialty Diagnoses / Procedures Referred By Contac t Referred To Contact Diagnoses Fracture Pelvis Other Parts Closed Initial (HCC) Procedures DX Pelvis 3+ Views DX Pelvis 1-2 Views Nenita Elkins MPAS P.A.-CDann [address] [place] [phone] [facility] Referral ID Status Reason Start Date Expiration Date Visits Re quested Visits Authorized [id number] Closed 03/03/2024 03/03/2025 1 1 Reason for Visit * Outpatient (Routine) - Closed Specialty Diagnoses / Procedures Referred By Contac t Referred To Contact Diagnoses Fracture Pelvis Other Parts Closed Initial (HCC) Procedures DX Pelvis 3+ Views DX Pelvis 1-2 Views Nenita Elkins MPAS PDannA.-CDann [address] [place] [phone] [facility] Referral ID Status Reason Start Date Expiration Date Visits Re quested Visits Authorized [id number] Closed 03/03/2024 03/03/2025 1 1 Encounter Details Date Type Department Care Team (Latest Contact Info) Description 04/05/2024 10:00 AM CDT - 04/05/2024 11:59 PM CDT Hospital Encounter Department of Radiology, [facility], in [place], [place] [address] [place] [phone] Nenita Elkins, URIEL, P.A.-C. [address] [place] [phone] Fracture Pelvis Other Parts Closed Initial (HCC) Discharge Disposition: Home or Self Care Social History Tobacco Use Types Packs/Day Years Used Date Smoking Tobacco: Never Smokeless Tobacco: Never Alcohol Use Standard Drinks/Week Comments Not Currently 0 (1 standard drink = 0.6 oz pur e alcohol) [facility] Utilities Answer Date Recorded In the past 12 months has e [employer], gas, oil, or water [employer] threatened to shut off services in your [...] week 09/27/2022 How often do you attend [facility] or christian services? More than 4 times per year 09/27/2022 Do you belong to any clubs o r organizations such as religious groups, unions, fraternal or athletic groups, or [...] and heating? Not hard at all 09/27/2022 [facility] of Occupat ional [facility] - Occupational Stress Questionnaire Answer Date [...] tablet by mouth daily. 11/02/2013 fexofenadine-pseudoeph edrine (Rochelle-D) 60-120 mg per 12 hr tablet [...] 4 (four) hours as needed. 03/24/2024 vitamins A,C,P-gosu-cesixa (PreserVision AREDS) 7,160 Units-113 mg-100 Units per tablet Take 1 tablet by mouth daily. documented as of this encounter Plan of Treatment Not on file documented as of this encounter Procedures Procedure [...] Total Score: 0 11/02/19 14 2:53 PM AXLE POLISHER documented as of this encounter Care Teams Air Bag Curer Relationship Specialty Start Date End Date Elsewhere, Pcp PCP - General Family Medicine 01/31/21 documented as of this encounter
== END 2024-06-21 11:16 | disposition home or self-care (01) ==
LOC: NFLDREF 06-24 11:32
PROVIDERS: PCP Nurse Practitioner Family; Referring Provider Nurse Practitioner Family; Visit Provider Nurse Practitioner Family
DX: N39.0 Urinary tract infection, site not specified (principal)
CPT/HCPCS: 81001; 87086; 87186

== ENCOUNTER 2024-06-30 13:37 | Outpatient (CLI) | payer MEDICARE, OTHER, SELFPAY ==
--- OUTSIDE RECORDS SUMMARY | 2024-07-06 07:32 | XMS_ITS | Continuity of Care Document ---
Author Name [facility] Organization [facility] Care Team Providers Care Communications Project Lead Name Role Phone [facility] Unavailable Unavailable Medications Combined list of outpatient [...] EXELAN PHARMACE, 4 ea. BLIST PACK Active [id number] 3 2022 12 Pharmac y Data Transac tion Service Facilit y ALENDRONATE SODIUM (alendronat e sodium), 70 MG, TABLET, ORAL, [employer]., 4 ea. BLIST PACK Active [id number] 2023 12 Pharmac y Data Transac tion Service Facilit y ALENDRONATE SODIUM (alendronat e sodium), 70 MG, TABLET, ORAL, [employer]., 4 ea. BLIST PACK Active [id number] 2023 12 Pharmac y Data Transac tion Service Facilit y CYCLOSPORIN E (cyclospori ne), 0.05 %, DROPERETTE, OPHTHALMIC, [employer] 30 ea. VIAL Active [id number] 3 2022 180 Pharmac y Data Transac tion Service Facilit y CYCLOSPORIN E (cyclospori ne), 0.05 %, DROPERETTE, OPHTHALMIC, [employer] 30 ea. VIAL Active [id number] 4 2023 180 Pharmac y Data Transac tion Service Facilit y FLUOROURACI L (FLUOROURAC [place]), 5 %, CREAM(GM), TOPICAL, [employer], 40 g TUBE Cancele d [id number] : 2023 0 Pharmac y Data Transac tion Service Facilit y FLUOROURACI L (FLUOROURAC [place]), 5 %, CREAM(GM), TOPICAL, [employer], 40 g TUBE Active [id number] 2023 40 Pharmac y Data Transac tion Service Facilit y FLUTICASONE PROPIONATE (FLUTICASON E PROPIONATE) , 50 MCG, SPRAY SUSP, NASAL, [employer] 16 g AER W/ADAP Cancele d [id number] : 2023 0 Pharmac y Data Transac tion Service Facilit y FLUTICASONE PROPIONATE (FLUTICASON E PROPIONATE) , 50 MCG, SPRAY SUSP, NASAL, [employer] 16 g AER W/ADAP Active [id number] 2023 16 Pharmac y Data Transac tion Service Facilit y FLUTICASONE PROPIONATE (FLUTICASON E PROPIONATE) , 50 MCG, SPRAY SUSP, NASAL, [employer] 16 g AER W/ADAP Active [id number] 2023 16 Pharmac y Data Transac tion Service Facilit y GABAPENTIN (gabapentin ), 100 MG, CAPSULE, ORAL, [employer] 1000 ea. BOTTLE Active [id number] 2023 90 Pharmac y Data Transac tion Service Facilit y HYDROCHLORO THIAZIDE (hydrochlor othiazide), 12.5 MG, TABLET, ORAL, [employer] 1000 ea. BOTTLE Active [id number] 4 2023 90 Pharmac y Data Transac tion Service Facilit y LOSARTAN POTASSIUM (losartan potassium), 25 MG, TABLET, ORAL, [employer]ACE, 1000 ea. BOTTLE Cancele d [id number] : 2023 0 Pharmac y Data Transac tion Service Facilit y LOSARTAN POTASSIUM (losartan potassium), 25 MG, TABLET, ORAL, [employer], 1000 ea. BOTTLE Active [id number] 2023 90 Pharmac y Data Transac tion Service Facilit y OMEPRAZOLE (omeprazole ), 40 MG, CAPSULE DR, ORAL, [employer], 500 ea. BOTTLE Active [id number] 2023 90 Pharmac y Data Transac tion Service Facilit y OMEPRAZOLE (omeprazole ), 40 MG, CAPSULE DR, ORAL, [employer], 500 ea. BOTTLE Active [id number] 4 2023 90 Pharmac y Data Transac tion Service Facilit y OMEPRAZOLE (omeprazole ), 40 MG, CAPSULE DR, ORAL, [employer], 500 ea. BOTTLE Active [id number] 3 2022 90 Pharmac y Data Transac tion Service Facilit y OMEPRAZOLE (omeprazole ), 40 MG, CAPSULE DR, ORAL, [employer]ARM, 500 ea. BOTTLE Active [id number] 4 2023 90 Pharmac y Data Transac tion Service Facilit y PAXLOVID (EUA) (nirmatrelv ir/ritonavi r), 150-100 MG, TAB DS PK, ORAL, [employer] 20 ea. BLIST PACK Cancele d [id number] : 2023 0 Pharmac y Data Transac tion Service Facilit y PAXLOVID (EUA) (nirmatrelv ir/ritonavi r), 150-100 MG, TAB DS PK, ORAL, [employer] 20 ea. BLIST PACK Active [id number] 4 2023 20 Pharmac y Data Transac tion Service Facilit y SHINGRIX (varicella- zoster virus glycoprotei n E,rec/AS01B adjuvant/PF ), 50 MCG/0.5, KIT, INTRAMUSC, GLAXOSMITHK LINE, 1 ea. KIT Active [id number] 4 2023 1 Pharmac y Data Transac tion Service Facilit y Immunizations Combined list of available immunizations from the Department of Defense and Veterans Affairs facilities. Immunization Series Date Given Administered By Site Reaction Lot Number CVX Code Drug Horticulture Professor Status Comments Source zoster recombinant 2023 () Not Given zoster recombina nt DoD Social History Combined list of available smoking, tobacco, and other social history from Department of Defense and Veterans Affairs facilities. Social History Type Response Date Comment Sour e This section is an empty social history section. DoD
--- OUTSIDE RECORDS SUMMARY | 2024-07-06 07:32 | XMS_ITS | Referral Summary ---
Author Organization [facility] Address [address] [place] [address] Care Team Providers Care Waste Picker Name Role Phone Elsewhere, Pcp Primary Care Provider Unavailabl e Source Comments Patient records contain information from all sites at [facility]. For routine questions regarding patient records, call [phone] during business hours, M-F 8:00 AM - 5:00 PM Central Time. Record requests for emergency care only can be directed to [phone] at any time.[facility] Encounters Date Type Department Care Team Description 05/11/2024 12:30 PM CDT Clinical Support Department of Rehabilitation Services in [address] [phone] Yobany Bateman APRN, C.NOlivia, Suhas.Antonia Johnson, P.T., D.P.T. Fracture Pelvis Multiple With Stable Disruption Of Pelvic Ring Open Initial (HCC) 05/02/2024 3:15 PM CDT Clinical Support Department of Rehabilitation Services in [address] [phone] Yobany Bateman APRN, C.NOlivia, Suahs.N.Antonia Peña PDannT., D.P.T. Fracture Pelvis Multiple With Stable Disruption Of Pelvic Ring Open Initial (HCC) 04/21/2024 10:30 AM CDT Clinical Support Department of Rehabilitation Services in [address] [phone] Yobany Bateman APRN, Geovanni., Suhas.Nadeen.Abelino. Rashaun Garcia, P.T. Fracture Pelvis Multiple With Stable Disruption Of Pelvic Ring Open Initial (HCC) 04/15/2024 Clinical Communication Department of Rehabilitation Services in [address] [phone] Rashaun Garcia, P.T. 04/07/2024 2:30 PM CDT Clinical Support Department of Rehabilitation Services in [address] [phone] Yobany Bateman APRN, Ant, Brittany. Rashaun Garcia, P.T. Fracture Pelvis Multiple With Stable Disruption Of Pelvic Ring Open Initial (HCC) 04/05/2024 11:00 AM CDT Office Visit Department of Orthopedic Surgery in [address] [phone] Nenita Elkins MPAS, P.A.-C. Fracture Pelvis Other Parts Closed Initial (HCC) (Primary Dx) 04/05/2024 10:00 AM CDT - 04/05/2024 11:59 PM CDT Hospital Encounter Department of Radiology, [facility], in [address] [phone] Nenita Elkins MPAS, P.A.-C. Fracture Pelvis Other Parts Closed Initial (HCC) Discharge Disposition: Home or Self Care 04/05/2024 11:00 AM CDT Comprehensive Visit Division of Endocrinology in [address] [phone] Nenita Elkins MPAS, P.A.-C. Cristi Tierney M.D. Osteoporosis Post Menopausal With Pathological Fracture Subsequent (Primary Dx); Fracture Pelvis Other Parts Closed Initial (HCC) from Last 3 Months Allergies Active Allergy Reactions Criticality Noted Date Comments Gluten Other (see comments) 10/25/2010 cerner listed no reaction Influenza Virus Vaccines Other (see comments) 10/20/2006 Miconazole Other (see comments) 12/10/2013 MICONAZOLE NITRATE Nut - Unspecified Other (see comments) 10/25/19 11 cerner listed no reaction Peanut Hives (Reselect Reaction),Anaphylaxi s 12/20/2011 Medications CYANOCOBALAMIN, VITAMIN B-12, ORAL Take 1,000 mcg [...] 2 (two) times a day. Active calcium carbonate-vitam in D3 1,500 mg (600 mg calcium)-10 mcg [...] 30 MINUTES 12 tablet 3 3 Active fexofenadine-ps eudoephedrine (Rochelle-D) 60-120 mg per 12 hr tablet Take 1 tablet by mouth 2 (two) times a day. 180 tablet 1 06/09/2024 1:01 PM CDT 4 Active gabapentin (Neurontin) 100 mg capsule [...] medication until restarted by PCP 4 Active hydroCHLOROthia zide 12.5 mg tablet Take 1 tablet (12.5 [...] pain for 7 days. 21 tablet 03/30/2024 1:28 PM CDT 4 Active meclizine (Antivert) 25 mg tablet [...] (four) hours as needed. 4 Active vitamins A,C,E-zinc-sami er (PreserVision AREDS) 7,160 Units-113 mg-100 Units per tablet Take 1 tablet by mouth daily. Active oxyCODONE (Roxicodone) 5 mg immediate release tabletIndicatio ns:Acute Pain Exception Take 1 tablet (5 mg total) by mouth 3 (three) times a day as needed for pain for 7 days. Indication: Acute Pain Exception. 21 tablet 04/15/2024 9:04 AM CDT 4 Active celecoxib (CeleBREX) 200 mg capsule Take 1 capsule (200 mg total) by mouth 2 (two) times a day. 60 capsule 1 04/20/2024 1:32 PM CDT 4 Active levoFLOXacin (Levaquin) 250 mg tablet Take 1 tablet (250 mg total) by mouth daily for 5 days. 5 tablet 07/04/2024 3:59 PM CDT 4 07/09/20 24 Active cephalexin (Keflex) 500 mg capsule Take 1 capsule (500 mg total) by mouth 2 (two) times a day for 7 days. 14 capsule 06/21/2024 2:14 PM CDT 4 06/28/20 24 Active Problems Problem Noted Date Diagnosed Date [...] risk 06/29/2006,01/31/2002,12/28/2001 Hib (PRP-T) (ACTHIB, HIBERIX) 02/01/2007 Influenza, Unspecified 09/24/2016,2016,07/12/2015,07/10,07/26/2014,07/05/2013,07/04/2013 ,07/01/2013,08/02/2012,07/29/2012,07/15,09/25/2011,09/25/2011, 0 MCV4 (Menactra)(Discontinued) [...] drink = 0.6 oz pur e alcohol) [employer] Answer Date Recorded In the past 12 months has e [employer], gas, oil, or water [employer] threatened to shut off services in your [...] often do you attend chur ch or protestant services? More than 4 times per year 09/27/2022 Do you belong to any clubs o r organizations such as restorationism groups, unions, fraternal or athletic groups, or [...] heating? Not hard at all 09/27/2022 [facility] of Occupat ional Health - Occupational [...] your living situation today? I have a [facility] place to live 03/03/2024 Education Answer Date Recorded What is the highest level of school you have completed or the highest degree you have received? 12th grade 09/27/2022 Comments No Sex and Gender Information Value Date Recorded Sex Assigned at Not on file Legal Sex Female 5:07 AM RN NURSERY Gender Identity Not on file Sexual Orientation [...] on file Medical Devices Implanted Type Area Project Surveyor Device Identifier Shelf Expiration Date Model / [...] EXAM: ??DX PELVIS 3+ VIEWS Procedure Note Abbea Fuentes M.D. - 04/05/2024 EXAM: DX PELVIS [...] joints. Arterial calcifications. Nenita TREVINO, P.A.-C. IMG DIAGNOSTIC IM AGING PROCEDURES Final Result * (ABNORMAL) Basic Metabolic Panel (03/07/2024 9:21 [...] CDT Renée Brannon M.D. LAB BLOOD ADD-ON Final Resu lt [facility] [address] [place] [address], [facility] [address] [place] [address] from Last 3 Months or Most Recently Relevant to Health Maintenance Insurance MEDICARE FOR LIFE Advance Directives For more information, please contact: [phone] * Full Code (Latest Code Status on [...] Answer Comments Full Code: Discussed Care Teams Waste Picker Relationship Specialty Start Date End Date Elsewhere, Pcp PCP - General Family Medicine 01/31/21
--- OUTSIDE RECORDS SUMMARY | 2024-07-06 07:32 | XMS_ITS ---
Author Organization [facility] Address [address] [place] [address] Care Team Providers Care Computer Bookkeeper Name Role Phone Unavailable Unavailable Unavailable Surgery Details Not on file Complications Check Surgery Details section. Procedure Estimated Blood Loss Check Surgery Details section. Procedure Findings Check Surgery Details section. Procedure Specimens Taken Check Surgery Details section.
--- OUTSIDE RECORDS SUMMARY | 2024-07-06 07:32 | XMS_ITS | Clinical Summary ---
Author Organization [facility] Address [address] [place] [address] Care Team Providers Care Damper Worker Name Role Phone Elsewhere, Pcp Primary Care Provider Unavailabl e Source Comments Patient records contain information from all sites at [facility]. For routine questions regarding patient records, call [phone] during business hours, M-F 8:00 AM - 5:00 PM Central Time. Record requests for emergency care only can be directed to [phone] at any time.[facility] Allergies Active Allergy Reactions Criticality Noted Date [...] Clinical Support Department of Rehabilitation Services in [address] [phone] Yobany Bateman APRN, C.NOlivia, Suhas.N.Antonia Peña P.Radha., D.P.T. Fracture Pelvis Multiple With Stable Disruption Of Pelvic Ring Open Initial (HCC) 05/02/2024 3:15 PM CDT Clinical Support Department of Rehabilitation Services in [address] [phone] Yobany Bateamn APRN, C.NOlivia, Suhas.N.Antonia Peña, Abelino.Radha., D.P.T. Fracture Pelvis Multiple With Stable Disruption Of Pelvic Ring Open Initial (HCC) 04/21/2024 10:30 AM CDT Clinical Support Department of Rehabilitation Services in [address] [phone] Yobany Bateman APRN, Angy.N.PDann, Suhas.N.P. Rashaun Garcia, P.T. Fracture Pelvis Multiple With Stable Disruption Of Pelvic Ring Open Initial (HCC) 04/15/2024 Clinical Communication Department of Rehabilitation Services in [address] [phone] Rashaun Garcia, P.T. 04/07/2024 2:30 PM CDT Clinical Support Department of Rehabilitation Services in [address] [phone] Yobany Bateman APRN, C.N.P., D.N.P. Rashaun Garcia, P.T. Fracture Pelvis Multiple With Stable Disruption Of Pelvic Ring Open Initial (HCC) 04/05/2024 11:00 AM CDT Office Visit Department of Orthopedic Surgery in [address] [phone] Nenita Elkins MPAS P.A.-CDann Fracture Pelvis Other Parts Closed Initial (HCC) (Primary Dx) 04/05/2024 11:00 AM CDT Comprehensive Visit Division of Endocrinology in [address] [phone] Nenita Elkins MPAS, P.A.-C. Cristi Tierney M.D. Osteoporosis Post Menopausal With Pathological Fracture Subsequent (Primary Dx); Fracture Pelvis Other Parts Closed Initial (HCC) 04/05/2024 10:00 AM CDT - 04/05/2024 11:59 PM CDT Hospital Encounter Department of Radiology, [facility] in [address] [phone] Nenita Elkins MPAS, P.A.-C. Fracture Pelvis Other Parts Closed Initial (HCC) Discharge Disposition: Home or Self Care from Last 3 Months Immunizations Name Administration [...] drink = 0.6 oz pur e alcohol) [facility] [employer] Answer Date Recorded In the past 12 months has e [employer], gas, oil, or water [employer] threatened to shut off services in [...] often do you attend chur ch or anabaptism services? More than 4 times per year 09/27/2022 Do you belong to any clubs o r organizations such as pentecostalism groups, unions, fraternal or athletic groups, or [...] and heating? Not hard at all 09/27/2022 [facility] of Occupat ional Health - Occupational [...] your living situation today? I have a [facility] place to live 03/03/2024 Education Answer Date Recorded What is the highest level of school you have completed or the highest degree you have received? 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 LAB BLOOD ADD-ON Final Resu lt [facility] [address] [place] [address], [place] D[place] [facility] [address] [place] [address] from Last 3 Months or Most Recently Relevant to Health Maintenance Insurance MEDICARE [employer] Advance Directives For more information, please contact: [phone] * Full Code (Latest Code Status on [...] Answer Comments Full Code: Discussed Care Teams Damper Worker Relationship Specialty Start Date End Date Elsewhere, Pcp PCP - General Family Medicine 01/31/21
--- OUTSIDE RECORDS SUMMARY | 2024-07-06 07:32 | XMS_ITS | Clinical Summary ---
Author Organization [facility] Address [place], [place] [address] Care Team Providers Care Net Washer Name Role Phone Clinic, [facility] Allergies Active Allergy [...] rheumatoid 10/25/2010 Overview (03/22/2024): Overview: Arthritis, rheumatoid* Social History Tobacco Use Types Packs/Day Years [...] file 03/22/2024 Food Insecurity Answer Date Recorded Do you worry your food will run out before you are able to buy more? 1 03/22/2024 Transportation Needs Answer Date Record ed Lack of Transportation (Medical) 1 03/22/2024 Housing Stability Answer Date Recorded What is your housing situation today? 1 03/22/2024 Sex and Gender Information Value [...] 65+ 05/15/2024 Medical Devices Implanted Type Area Legal Services Manager Device Identifier Shelf Expiration Date Model / Serial / Lot Valve Barevelt 350mm [id number] [facility] - [id number] Implanted:Qty: 1 on 12/22/2011 at [facility] Right: [employer] 06/13/2013 [id number] / [id number] / Cornea Glycerol Half - [id number] Implanted:Qty: 1 on 12/22/2011 at [facility] Right: Eye [facility] 09/19/2014 [id number]# / [id number] / Advance Directives * Full Code (Latest Code Status on File) Date Activated Date Inactivated Comments 03/22/2024 8:13 PM 03/24/2024 3:39 PM Question Answer Comments Code Status Discussion: Reviewed Preferences * Full Code Date Activated Date Inactivated Comments 12/22/2011 12:34 PM 12/22/2011 6:48 PM Care Teams Net Washer Relationship Specialty Start Date End Date Clinic, [facility] [address] [place] [address] PCP - General 04/25/24
--- OUTSIDE RECORDS SUMMARY | 2024-07-06 07:33 | XMS_ITS | Encounter Summary ---
Author Organization [facility] Address [address] [place] [address] Care Team Providers Care Telehealth Nurse Name Role Phone Elsewhere, Pcp Primary Care Provider Unavailabl e Reason for Referral * Outpatient (Routine) - Closed Specialty Diagnoses / Procedures Referred By Contac t Referred To Contact Diagnoses Fracture Pelvis Other Parts Closed Initial (HCC) Procedures DX Pelvis 3+ Views DX Pelvis 1-2 Views Nenita Elkins MPAS, P.A.-CDann [address] [place] [address] Phone: tel: fax: [facility] Referral ID Status Reason Start Date Expiration Date Visits Re quested Visits Authorized [id number] Closed 03/03/2024 03/03/2025 1 1 Reason for Visit * Outpatient (Routine) - Closed Specialty Diagnoses / Procedures Referred By Contac t Referred To Contact Diagnoses Fracture Pelvis Other Parts Closed Initial (HCC) Procedures DX Pelvis 3+ Views DX Pelvis 1-2 Views Nenita Elkins MPAS, [place] [address] Phone: tel: fax: [facility] Referral ID Status Reason Start Date Expiration Date Visits Re quested Visits Authorized [id number] Closed 03/03/2024 03/03/2025 1 1 Encounter Details Date Type Department Care Team (Latest Contact Info) Description 04/05/2024 10:00 AM CDT - 04/05/2024 11:59 PM CDT Hospital Encounter Department of Radiology, [facility], in [place], [place] [address] [place] [address] Nenita Elkins, MPAS, P.A.-C. [address] [place] [address] Fracture Pelvis Other Parts Closed Initial (HCC) Discharge Disposition: Home or Self Care Social History Tobacco Use Types Packs/Day Years Used Date Smoking Tobacco: Never Smokeless Tobacco: Never Alcohol Use Standard Drinks/Week Comments Not Currently 0 (1 standard drink = 0.6 oz pur e alcohol) [facility] Utilities Answer Date Recorded In the past 12 months has e [employer], gas, oil, or water [employer] threatened to shut off services in your [...] week 09/27/2022 How often do you attend [facility] or christianity services? More than 4 times per year 09/27/2022 Do you belong to any clubs o r organizations such as taoism groups, unions, fraternal or athletic groups, or [...] Not hard at all 09/27/2022 [facility] of Occupat ional Health - Occupational [...] your living situation today? I have a [facility] place to live 03/03/2024 Education Answer Date Recorded What is the highest level of school you have completed or the highest degree you have received? 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 calcium carbonate-vitami n D3 1,500 mg (600 mg calcium)-10 mcg [...] Take 1 tablet by mouth daily. 11/02/2013 fexofenadine-pse udoephedrine (Rochelle-D) 60-120 mg per 12 hr tablet Take 1 tablet by mouth 2 (two) times a day. 180 tablet 1 06/09/2024 1:01 PM CDT 02/18/2024 fluticasone propionate (FLONASE) 50 mcg/actuation nasal spray Administer 2 sprays into each nostril daily as needed for rhinitis or allergies. 16 g 12 05/14/2019 gabapentin (Neurontin) 100 mg capsule daily as needed. 11/02/2023 gabapentin (Neurontin) 100 mg capsule Take 100 mg by mouth at bedtime as needed. 03/10/2024 hydroCHLOROthiaz clint 12.5 mg tablet Take 1 tablet (12.5 [...] days. 21 tablet 03/30/2024 1:28 PM CDT 03/30/2024 oxyCODONE (Roxicodone) 5 mg immediate release tablet Take 5 mg by mouth every 4 (four) hours as needed. 03/24/2024 vitamins A,C,V-spku-jqwgd r (PreserVision AREDS) 7,160 Units-113 mg-100 Units per [...] IMG DIAGNOSTIC IM AGING PROCEDURES Final Result documented in this encounter Visit Diagnoses Diagnosis Fracture Pelvis Other Parts Closed Initial (HCC) documented in this encounter Additional Health Concerns Assessment Noted Time PHQ-9 Depression Total Score: 0 11/02/19 14 2:53 PM CASHIER PAYMENTS RECEIVED documented as of this encounter Care Teams Telehealth Nurse Relationship Specialty Start Date End Date Elsewhere, Pcp PCP - General Family Medicine 01/31/21 documented as of this encounter
--- OUTSIDE RECORDS SUMMARY | 2024-07-06 07:33 | XMS_ITS | Encounter Summary ---
Author Organization [facility] Address [address] [place] [address] Care Team Providers Care Clinical Informaticist Name Role Phone Elsewhere, Pcp Primary Care Provider Unavailabl e Reason for Visit * Physical Therapy (Routine) - Canceled Specialty Diagnoses / Procedures Referred By Violeta t Referred To Contact Diagnoses Fracture Pelvis Multiple With Stable Disruption Of Pelvic Ring Open Initial (HCC) Procedures PT Ongoing treatment Yobany Bateman APRN, C.N.P., D.N.P. [address] [place] [phone] Phone: tel: fax: [facility] Region Referral ID Status Reason Start Date Expiration Date V isits Requested Visits Authorized [id number] Canceled 04/04/2024 04/04/2025 99 [phone] Encounter Details Date Type Department Care Team (Latest Contact Info) Description 04/07/2024 2:30 PM CDT Clinical Support Department of Rehabilitation Services in [address] [phone] Yobany Bateman APRN, C.N.P., D.N.P. [address] [place] [phone] Rashaun Garcia P.T. [address] [place] [phone] Fracture Pelvis Multiple With Stable Disruption Of Pelvic Ring Open Initial (HCC) Social History Tobacco Use Types Packs/Day Years Used Date Smoking Tobacco: Never Smokeless Tobacco: Never Alcohol Use Standard Drinks/Week Comments Not Currently 0 (1 standard drink = 0.6 oz pur e alcohol) [facility] Utilities Answer Date Recorded In [...] week 09/27/2022 How often do you attend [facility] or adventism services? More than 4 times per year [...] and heating? 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
--- OUTSIDE RECORDS SUMMARY | 2024-07-06 07:33 | XMS_ITS | Encounter Summary ---
Author Organization [facility] Address [address] [place] [address] Care Team Providers Care Infection Control Rn Name Role Phone Elsewhere, Pcp Primary Care Provider Unavailabl e Reason for Visit * Physical Therapy (Routine) - Canceled Specialty Diagnoses / Procedures Referred By Violeta t Referred To Contact Diagnoses Fracture Pelvis Multiple With Stable Disruption Of Pelvic Ring Open Initial (HCC) Procedures PT Ongoing treatment Yobany Bateman APRN, C.N.P., D.N.P. [address] [place] [phone] Phone: tel: fax: [facility] Region Referral ID Status Reason Start Date Expiration Date V isits Requested Visits Authorized [id number] Canceled 04/04/2024 04/04/2025 99 [phone] Encounter Details Date Type Department Care Team (Latest Contact Info) Description 05/11/2024 12:30 PM CDT Clinical Support Department of Rehabilitation Services in [address] [phone] Yobany Bateman APRN, C.N.P., D.N.P. [address] [place] [phone] Antonia Raines P.T., D.P.T. [address] [place] [phone] Fracture Pelvis Multiple With Stable Disruption Of Pelvic Ring Open Initial (HCC) Social History Tobacco Use Types Packs/Day Years Used Date Smoking Tobacco: Never Smokeless Tobacco: Never Alcohol Use Standard Drinks/Week Comments Not Currently 0 (1 standard drink = 0.6 oz pur e alcohol) [facility] Utilities Answer Date Recorded In [...] week 09/27/2022 How often do you attend [facility] or jewish services? More than 4 times per year 09/27/2022 Do you belong to any clubs o r organizations such as yarsanism groups, unions, fraternal or athletic groups, or [...] and heating? 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 - 05/11/2024 12:30 PM CDT Physical Therapy Outpatient Treatment Note SUBJECTIVE Patient's Name: Kathryn Leon Referring Provider: Yobany Bateman APRN, C.NDann* Visit Diagnosis: 1. Fracture Pelvis Multiple With [...] Total Score: 0 11/02/19 14 2:53 PM TREASURER [employer] documented as of this encounter Care Teams Infection Control Rn Relationship Specialty Start Date End Date Elsewhere, Pcp PCP - General Family Medicine 01/31/21 documented as of this encounter
--- OUTSIDE RECORDS SUMMARY | 2024-07-06 07:33 | XMS_ITS | Encounter Summary ---
Author Organization [facility] Address [address] [place] [address] Care Team Providers Care Caregiver Services Home Name Role Phone Elsewhere, Pcp Primary Care Provider Unavailabl e Encounter Details Date Type Department Care Team (Latest Contact Info) Description 04/15/2024 Clinical Communication Department of Rehabilitation Services in [address] [phone] Rashaun Garcia, P.TDann [address] [place] [phone] Social History Tobacco Use Types Packs/Day Years Used Date Smoking Tobacco: Never Smokeless Tobacco: Never Alcohol Use Standard Drinks/Week Comments Not Currently 0 (1 standard drink = 0.6 oz pur e alcohol) [facility] Utilities Answer Date Recorded In the past 12 months has [facility] [employer], gas, oil, or water [employer] threatened to shut off services in your [...] How often do you attend chur or baptist services? More than 4 times per year 09/27/2022 Do you belong to any clubs o r organizations such as gnosticism groups, unions, fraternal or athletic groups, or [...] and heating? Not hard at all 09/27/2022 [facility] of Occupat ional Health - [...] your living situation today? I have a [facility] place to live 03/03/2024 Education Answer Date Recorded What is the highest level of school you have completed or the highest degree you have received? 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
--- OUTSIDE RECORDS SUMMARY | 2024-07-06 07:33 | XMS_ITS | Encounter Summary ---
Author Organization [facility] Address [address] [place] [address] Care Team Providers Care Tromper Name Role Phone Elsewhere, Pcp Primary Care Provider Unavailabl e Reason for Visit * Reason Onset Date Comments Lovenox Injections 03/10/2024 Encounter Details Date Type Department Care Team (Latest Contact Info) Description 03/10/2024 Clinical Communication Department of Orthopedic Surgery in [place], [place] [address] [place] [phone] Nenita Elkins, MPAS, P.A.-C. [address] [place] [phone] Lovenox Injections Social History Tobacco Use Types Packs/Day Years Used Date Smoking Tobacco: Never Smokeless Tobacco: Never Alcohol Use Standard Drinks/Week Comments Not Currently 0 (1 standard drink = 0.6 oz pur e alcohol) [facility] Utilities Answer Date Recorded In the [...] and heating? Not hard at all 09/27/2022 [facility] of Occupat ional Health - Occupational Stress [...] your living situation today? I have a [facility] place to live 03/03/2024 Education Answer Date Recorded What is the highest level of school you have completed or the highest degree you have received? 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
--- OUTSIDE RECORDS SUMMARY | 2024-07-06 07:33 | XMS_ITS | Encounter Summary ---
Author Organization [facility] Address [address] [place] [address] Care Team Providers Care Enrollment Nurse Name Role Phone Elsewhere, Pcp Primary Care Provider Unavailabl e Reason for Visit * Reason Comments Follow-up * Outpatient (Routine) - Closed Specialty Diagnoses / Procedures Referred By Violeta keating Referred To Contact Orthopedic Surgery Nenita Elkins MPAS, P.A.-C. [address] [place] [phone] Phone: tel: fax: [facility] Referral ID Status Reason Start Date Expiration Date Visits Re quested Visits Authorized [id number] Closed 03/03/2024 09/02/2025 1 1 Encounter Details Date Type Department Care Team (Late st Contact Info) Description 04/05/2024 11:00 AM CDT Office Visit Department of Orthopedic Surgery in [place], [place] [address] [place] [phone] Nenita Elkins MPAS, P.A.-C. [address] [place] [phone] Fracture Pelvis Other Parts Closed Initial (HCC) (Primary Dx) Social History Tobacco Use Types Packs/Day Years Used Date Smoking Tobacco: Never Smokeless Tobacco: Never Alcohol Use Standard Drinks/Week Comments Not Currently 0 (1 standard drink = 0.6 oz pur e alcohol) [facility] Utilities Answer Date Recorded [...] How often do you attend chur or oriental orthodox services? More than 4 times per year 09/27/2022 Do you belong to any clubs o r organizations such as caodaism groups, unions, fraternal or athletic groups, or [...] Not hard at all 09/27/2022 [facility] of Occupat ional Health - Occupational [...] your living situation today? I have a [facility] place to live 03/03/2024 Education Answer Date Recorded What is the highest level of school you have completed or the highest degree you have received? 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
--- OUTSIDE RECORDS SUMMARY | 2024-07-06 07:33 | XMS_ITS | Encounter Summary ---
Author Organization [facility] Address [address] [place] [address] Care Team Providers Care Roustabout Hand Name Role Phone Elsewhere, Pcp Primary Care Provider Unavailabl e Reason for Visit * Appointment Request (Routine) - Closed Specialty Diagnoses / Procedures Referred By Violeta keating Referred To Contact Physical Therapy Referral ID Status Reason Start Date Expiration Date Visits Re quested Visits Authorized [id number] Closed 04/04/2024 04/04/2025 1 1 Encounter Details Date Type Department Care Team (Latest Contact Info) Description 04/04/2024 2:30 PM CDT Comprehensive Visit Department of Rehabilitation Services in [address] [phone] Cielo Bhakta M.D. [address] [place] [phone] Rashaun Garcia P.T. [address] [place] [phone] Fracture Pelvis Multiple With Stable Disruption Of Pelvic Ring Open Initial (HCC) (Primary Dx) Social History Tobacco Use Types Packs/Day Years Used Date Smoking Tobacco: Never Smokeless Tobacco: Never Alcohol Use Standard Drinks/Week Comments Not Currently 0 (1 standard drink = 0.6 oz pur e alcohol) [facility] Utilities Answer Date Recorded In the past 12 months has [employer], oil, or water [employer] threatened to shut off services in your [...] How often do you attend chur or gnosticist services? More than 4 times per year 09/27/2022 Do you belong to any clubs o r organizations such as islam groups, unions, fraternal or athletic groups, or [...] and heating? Not hard at all 09/27/2022 [facility] of Occupat ional Health - Occupational [...] your living situation today? I have a [facility] place to live 03/03/2024 Education Answer Date Recorded What is the highest level of school you have completed or the highest degree you have received? 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 - 04/04/2024 2:30 PM CDT Physical Therapy Outpatient Evaluation/Treatment SUBJECTIVE Patient's Name: Kathryn Leon Referring Provider: No ref. provider found Visit Diagnosis: 1. Fracture Pelvis Multiple With Stable Disruption Of Pelvic Ring Open Initial ([facility]) Reason for Referral: Patient is status post right pelvic fracture. Onset Date: 03/02/24 Payor: MEDICARE / Plan: MEDICARE A AND B / Product Type: Medicare / Immunetics Visit Count: 1 PERTINENT MEDICAL / SURGICAL HISTORY: Patient Active Problem List Diagnosis Arthritis Rheumatoid ([facility]) Vertigo Vertigo Benign Paroxysmal Positional Bilateral Osteoporosis Fracture Pelvis Other Parts Closed Initial (HCC) Loss Hearing Sensorineural Bilateral Gastroesophageal Reflux Disease NOS Neuropathy Peripheral Mononeuropathy Lower Limb Right History Of Falling Hemorrhage Lesion Pancreas Failure Renal Acute (Acute Kidney Injury) ([facility]) Past Surgical History: Procedure Laterality Date BREAST [...] misstepped. She recently returned home from the long-term. Presently, she has little pain. She can [...] in short sitting we hadher work on jji-aq-ymwyx exercises working shallow squats. Assessment Clinical Impression: [...] Total Score: 0 11/02/19 14 2:53 PM ONCOLOGY SOCIAL WORK documented as of this encounter Care Teams Roustabout Hand Relationship Specialty Start Date End Date Elsewhere, Pcp PCP - General Family Medicine 01/31/21 documented as of this encounter
--- OUTSIDE RECORDS SUMMARY | 2024-07-06 07:33 | XMS_ITS | Encounter Summary ---
Author Organization [facility] Address [address] [place] [address] Care Team Providers Care Sales Host Name Role Phone Elsewhere, Pcp Primary Care Provider Unavailabl e Reason for Visit * Reason Comments Consult * Outpatient (Routine) - Closed Specialty Diagnoses / Procedures Referred By Violeta keating Referred To Contact Endocrinology Diagnoses Fracture Pelvis Other Parts Closed Initial (HCC) Nenita Elkins MPAS, P.A.-C. [address] [place] [phone] Phone: tel: fax: [facility] Referral ID Status Reason Start Date Expiration Date Visits Re quested Visits Authorized [id number] Closed 03/03/2024 09/02/2025 1 1 Encounter Details Date Type Department Care Team (Latest Contact Info) Description 04/05/2024 11:00 AM CDT Comprehensive Visit Division of Endocrinology in [place], [place] [address] [place] [phone] Nenita Elkins MPAS, P.A.-C. [address] [place] [phone] Cristi Tierney M.D. 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 Not hard at all 09/27/2022 [employer] - Occupational Stress Questionnaire Answer Date Recorded [...] on file Legal Sex Female 5:07 AM SINK CUTTER Gender Identity Not on file Sexual Orientation [...] #1 Fracture Pelvis Other Parts Closed Initial (HCC) - Endocrinology - Fragility fracture consult (clinic) [...] Total Score: 0 11/02/19 14 2:53 PM SINK CUTTER documented as of this encounter Care Teams Sales Host Relationship Specialty Start Date End Date Elsewhere, Pcp PCP - General Family Medicine 01/31/21 documented as of this encounter
--- OUTSIDE RECORDS SUMMARY | 2024-07-06 07:33 | XMS_ITS | Encounter Summary ---
Author Organization [facility] Address [address] [place] [address] Care Team Providers Care Intelligence Specialist Name Role Phone Elsewhere, Pcp Primary Care Provider Unavailabl e Reason for Visit * Reason Onset Date Comments Pre-visit Intake 03/30/2024 Encounter Details Date Type Department Care Team (Latest Contact Info) Description 03/30/2024 1:45 PM CDT Clinical Communication Virtual Review in [place], [place] [address] [place] [phone] Pre-visit Intake Social History Tobacco Use Types Packs/Day Years Used Date Smoking Tobacco: Never Smokeless Tobacco: Never Tobacco Cessation:Counseling Given: Not Answered Alcohol Use Standard Drinks/Week Comments Not Currently 0 (1 standard drink = 0.6 oz pur e alcohol) [facility] Utilities Answer Date Recorded In the past 12 months has [facility] [employer], gas, oil, or water [employer] threatened to shut off services in your [...] How often do you attend chur or islam services? More than 4 times per year 09/27/2022 Do you belong to any clubs o r organizations such as presybeterian groups, unions, fraternal or athletic groups, or [...] your living situation today? I have a [facility] place to live 03/03/2024 Education Answer Date Recorded What is the highest level of school you have completed or the highest degree you have received? 12th grade 09/27/2022 Comments No Sex and Gender Information Value Date Recorded Sex Assigned at Not on file Legal Sex Female 5:07 AM RECORDS MANAGEMENT COORDINATOR Gender Identity Not on file Sexual Orientation Not on file documented as of this encounter Plan of Treatment Not on file documented as of this encounter Visit Diagnoses Not on filedocumented in this encounter Additional Health Concerns Assessment Noted Time PHQ-9 Depression Total Score: 0 11/02/19 14 2:53 PM RECORDS MANAGEMENT COORDINATOR documented as of this encounter Care Teams Intelligence Specialist Relationship Specialty Start Date End Date Elsewhere, Pcp PCP - General Family Medicine 01/31/21 documented as of this encounter
--- OUTSIDE RECORDS SUMMARY | 2024-07-06 07:33 | XMS_ITS | Encounter Summary ---
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 [address] [place] [phone] Phone: tel: fax: [facility] Region Referral ID Status Reason Start Date Expiration Date V isits Requested Visits Authorized [id number] Canceled 04/04/2024 04/04/2025 99 99 Encounter Details Date Type Department Care Team (Latest Contact Info) Description 04/21/2024 10:30 AM CDT Clinical Support Department of Rehabilitation Services in [address] [phone] Yobany Bateman APRN, C.N.P., D.N.P. [address] [place] [phone] Rashaun Garcia P.T. [address] [place] [phone] Fracture Pelvis Multiple With Stable Disruption Of [...] do you attend [facility] or druze services? More than 4 times per year 09/27/2022 Do you belong to any clubs o r organizations such as protestant groups, unions, fraternal or athletic groups, or [...] and heating? Not hard at all 09/27/2022 [facility] [place] of Occupat ional Health - Occupational Stress [...] on file Legal Sex Female 5:07 AM SCHOOL OF NURSING DIRECTOR Gender Identity Not on file Sexual Orientation Not on file documented as of this encounter Progress Notes * Rashaun Garcia PSe. - 04/21/2024 10:30 AM CDT Subjective: Kathryn [...] Total Score: 0 11/02/19 14 2:53 PM SCHOOL OF NURSING DIRECTOR documented as of this encounter Care Teams Drapery Hand Relationship Specialty Start Date End Date Elsewhere, Pcp PCP - General Family Medicine 01/31/21 documented as of this encounter
--- OUTSIDE RECORDS SUMMARY | 2024-07-06 07:33 | XMS_ITS | Encounter Summary ---
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 [address] [place] [phone] Phone: tel: fax: [facility] Region Referral ID Status Reason Start Date Expiration Date V isits Requested Visits Authorized [id number] Canceled 04/04/2024 04/04/2025 99 99 Encounter Details Date Type Department Care Team (Latest Contact Info) Description 05/02/2024 3:15 PM CDT Clinical Support Department of Rehabilitation Services in [address] [phone] Yobany Bateman APRN, C.N.P., D.N.P. [address] [place] [phone] Antonia Raines P.T., D.P.T. [address] [place] [phone] Fracture Pelvis Multiple With Stable Disruption [...] week 09/27/2022 How often do you attend [facility] or judaism services? More than 4 times per year 09/27/2022 Do you belong to any clubs o r organizations such as baptism groups, unions, fraternal or athletic groups, or [...] and heating? Not hard at all 09/27/2022 [facility] of Occupat ional [facility] - Occupational Stress Questionnaire Answer Date [...] on file Legal Sex Female 5:07 AM MANAGER SAFE Gender Identity Not on file Sexual Orientation Not on file documented as of this encounter Progress Notes * Antonia Raines P.T. - 05/02/2024 3:15 PM CDT Physical Therapy Outpatient Treatment Note SUBJECTIVE Patient's Name: Kathryn Leon Referring Provider: Yobany Bateman APRN CDannNDann* Visit Diagnosis: 1. Fracture Pelvis Multiple With [...] Total Score: 0 11/02/19 14 2:53 PM MANAGER SAFE documented as of this encounter Care Teams Gang Ripsaw Operator Relationship Specialty Start Date End Date Elsewhere, Pcp PCP - General Family Medicine 01/31/21 documented as of this encounter
== END 2024-06-30 13:38 | disposition home or self-care (01) ==
LOC: NFLDREF 07-06 07:30
PROVIDERS: PCP Nurse Practitioner Family; Referring Provider Nurse Practitioner Family; Visit Provider Nurse Practitioner Family
DX: N39.0 Urinary tract infection, site not specified (principal)
CPT/HCPCS: 81001; 87086; 87186

== ENCOUNTER 2024-07-14 10:00 | Outpatient (CLI) | payer MEDICARE, OTHER, SELFPAY ==
--- OUTSIDE RECORDS SUMMARY | 2024-07-14 12:37 | XMS_ITS | Encounter Summary ---
Author Organization [facility] Address [address] [place] [address] Care Team Providers Care Workforce Analyst Name Role Phone Elsewhere, Pcp Primary Care Provider Unavailabl e Reason for Referral * Outpatient (Routine) - Closed Specialty Diagnoses / Procedures Referred By Contac t Referred To Contact Diagnoses Fracture Pelvis Other Parts Closed Initial (HCC) Procedures DX Pelvis 3+ Views DX Pelvis 1-2 Views Nenita lEkins MPAS, P.A.-CDann 200 [place] [phone] Phone: tel: fax: [facility] Referral ID Status Reason Start Date Expiration Date Visits Re quested Visits Authorized [id number] Closed 03/03/2024 03/03/2025 1 1 Reason for Visit * Outpatient (Routine) - Closed Specialty Diagnoses / Procedures Referred By Contac t Referred To Contact Diagnoses Fracture Pelvis Other Parts Closed Initial (HCC) Procedures DX Pelvis 3+ Views DX Pelvis 1-2 Views Nenita Elkins MPAS, P.ADann-CDann [address] [place] [phone] Phone: tel: fax: [facility] Referral ID Status Reason Start Date Expiration Date Visits Re quested Visits Authorized [id number] Closed 03/03/2024 03/03/2025 1 1 Encounter Details Date Type Department Care Team (Latest Contact Info) Description 04/05/2024 10:00 AM CDT - 04/05/2024 11:59 PM CDT Hospital Encounter Department of Radiology, [facility], in [place], [place] [address] [place] [phone] Nenita Elkins, MPAS, P.A.-C. [address] [place] [phone] Fracture Pelvis Other Parts Closed Initial (HCC) Discharge Disposition: Home or Self Care Social History Tobacco Use Types Packs/Day Years Used Date Smoking Tobacco: Never Smokeless Tobacco: Never Alcohol Use Standard Drinks/Week Comments Not Currently 0 (1 standard drink = 0.6 oz pur e alcohol) [facility] Utilities Answer Date Recorded In the past 12 months has e [employer], gas, oil, or water [employer] threatened to shut off services in your [...] week 09/27/2022 How often do you attend [facility] or religion services? More than 4 times per year [...] and heating? Not hard at all 09/27/2022 [facility] of Occupat ional Health - Occupational [...] your living situation today? I have a [facility] place to live 03/03/2024 Education Answer Date Recorded What is the highest level of school you have completed or the highest degree you have received? 12th grade 09/27/2022 Comments No Sex and Gender Information Value Date Recorded Sex Assigned at Not on file Legal Sex Female 5:07 AM CERTIFIED DIABETES EDUCATOR Gender Identity Not on file Sexual Orientation [...] 4 (four) hours as needed. 03/24/2024 vitamins A,C,A-tumd-tvpou r ([employer] AREDS) 7,160 Units-113 mg-100 Units [...] Total Score: 0 11/02/19 14 2:53 PM CERTIFIED DIABETES EDUCATOR documented as of this encounter Care Teams Workforce Analyst Relationship Specialty Start Date End Date Elsewhere, Pcp PCP - General Family Medicine 01/31/21 documented as of this encounter
--- OUTSIDE RECORDS SUMMARY | 2024-07-14 12:37 | XMS_ITS ---
Author Organization [facility] Address [address] [place] [address] Care Team Providers Care Geothermal Electrical Engineer Name Role Phone Unavailable Unavailable Unavailable Surgery Details Not on file Complications Check Surgery Details section. Procedure Estimated Blood Loss Check Surgery Details section. Procedure Findings Check Surgery Details section. Procedure Specimens Taken Check Surgery Details section.
--- OUTSIDE RECORDS SUMMARY | 2024-07-14 12:37 | XMS_ITS | Clinical Summary ---
Author Organization [facility] Address [address] [place] [address] Care Team Providers Care Chair Inspector And Leveler Name Role Phone Elsewhere, Pcp Primary Care Provider Unavailabl e Source Comments Patient records contain information from all sites at [facility]. For routine questions regarding patient records, call [phone] during business hours, M-F 8:00 AM - 5:00 PM Central Time. Record requests for emergency care only can be directed to [phone] at any time.[facility] Allergies Active Allergy Reactions Criticality Noted Date [...] 1 04/20/2024 1:32 PM CDT 4 Active cephalexin (Keflex) 500 mg capsule Take 1 capsule (500 mg total) by mouth 2 (two) times a day for 7 days. 14 capsule 06/21/2024 2:14 PM CDT 4 06/28/20 24 levoFLOXacin (Levaquin) 250 mg tablet Take 1 tablet (250 mg total) by mouth daily for 5 days. 5 tablet 07/04/2024 3:59 PM CDT 4 07/09/20 24 Active Problems Problem Noted Date Diagnosed [...] Support Department of Rehabilitation Services in [address] [phone] Yobany Bateman APRN, C.NOlivia, Shuas.N.Antonia Peña P.Radha., D.P.T. 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 Rashaun Garcia, P.T. 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 from Last 3 Months Immunizations Name Administration [...] drink = 0.6 oz pur e alcohol) [facility] Utilities Answer Date Recorded In the past 12 months has e [employer], gas, oil, or water [employer] threatened to shut off services in your [...] week 09/27/2022 How often do you attend [facility] or orthodoxy services? More than 4 times per year 09/27/2022 Do you belong to any clubs o r organizations such as latter day groups, unions, fraternal or athletic groups, or [...] and heating? Not hard at all 09/27/2022 [facility] of Occupat ional Health - Occupational [...] your living situation today? I have a [facility] place to live 03/03/2024 Education Answer Date Recorded What is the highest level of school you have completed or the highest degree you have received? 12th grade 09/27/2022 Comments No Sex and Gender Information Value Date Recorded Sex Assigned at Not on file Legal Sex Female 5:07 AM SORT WORKER Gender Identity Not on file Sexual Orientation [...] of 3) 04/11/2024 02/15/2024, 09/14 COVID-19 Vaccine ( season) 2024 07/14/2023, 07/09/2022, 02/12/2022, Additional history exists Influenza Vaccine (#1) 2024 , 06/11/2023, 07/10/2022, Additional history exists Creatinine Level (Kidney Function Test) 03/23/2025 03/23/2024, 03/22/2024, 03/07/2024, Additional history exists Potassium Level 03/23/2025 03/23/2024, 07/0 05/2024, 03/07/2024, Additional history exists Sodium Level 03/24/2025 03/24/2024, 03/14, 03/23/2024, Additional history exists DTaP,Tdap,and Td Vaccines (4 - Td or Tdap) 02/16/2031 02/16/2021, 06/17/2011, 11/04/2010, Additional history exists Hepatitis A Vaccines Completed 07/30/2006, 12/29/19 02 Pneumococcal vaccine (65+ years) Completed 07/10/2015, 02/01/2007, 02/01/2007 RSV vaccine - (32-36 weeks) or 60+ years Completed 07/14/2023 Fall Risk Screen (Annual) Completed 03/09/2024 IPV Vaccines Aged Out No longer eligi ble based on patient's age to complete this topic Medical Devices Implanted Type Area Grant Administrator Device Identifier Shelf Expiration Date Model / [...] Recently Relevant to Health Maintenance Results * (ABNORMAL) Basic Metabolic Panel (03/07/2024 9:21 PM CDT) Pathologist [facility] Potassium, S 4.7 3.6 - 5.2 mmol/L [...] 9:21 PM CDT 03/07/2024 10:03 PM CDT us Renée Brannon M.D. LAB BLOOD ADD-ON Final Resu lt [facility] [place] [address] [place] [address], [facility] DTL [facility] [address] [place] [address] from Last 3 Months or Most Recently Relevant to Health Maintenance Insurance MEDICARE [facility] Advance Directives For more information, please contact: [phone] * Full Code (Latest Code Status on [...] Answer Comments Full Code: Discussed Care Teams Chair Inspector And Leveler Relationship Specialty Start Date End Date Elsewhere, Pcp PCP - General Family Medicine 01/31/21
--- OUTSIDE RECORDS SUMMARY | 2024-07-14 12:37 | XMS_ITS | Encounter Summary ---
Author Organization [facility] Address [address] [place] [address] Care Team Providers Care Manager Skilled Name Role Phone Elsewhere, Pcp Primary Care Provider Unavailabl e Reason for Visit * Reason Comments Follow-up * Outpatient (Routine) - Closed Specialty Diagnoses / Procedures Referred By Violeta keating Referred To Contact Orthopedic Surgery Nenita Elkins MPAS, P.A.-C. [address] [place] [phone] Phone: tel: fax: [facility] Referral ID Status Reason Start Date Expiration Date Visits Re quested Visits Authorized [id number] Closed 03/03/2024 09/02/2025 1 1 Encounter Details Date Type Department Care Team (Late st Contact Info) Description 04/05/2024 11:00 AM CDT Office Visit Department of Orthopedic Surgery in [place], [place] [address] [place] [phone] Nenita Elkins MPAS, P.A.-C. [address] [place] [phone] Fracture Pelvis Other Parts Closed Initial (HCC) (Primary Dx) Social History Tobacco Use Types Packs/Day Years Used Date Smoking Tobacco: Never Smokeless Tobacco: Never Alcohol Use Standard Drinks/Week Comments Not Currently 0 (1 standard drink = 0.6 oz pur e alcohol) [facility] Utilities Answer Date Recorded In [...] any clubs o r organizations such as taoist groups, unions, fraternal or athletic groups, or [...] heating? Not hard at all 09/27/2022 [facility] of Occupat ional Health - [...] your living situation today? I have a [facility] place to live 03/03/2024 Education Answer Date Recorded What is the highest level of school you have completed or the highest degree you have received? 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
--- OUTSIDE RECORDS SUMMARY | 2024-07-14 12:37 | XMS_ITS | Encounter Summary ---
Author Organization [facility] Address [address] [place] [address] Care Team Providers Care Quality Engineering Manager Name Role Phone Elsewhere, Pcp Primary Care Provider Unavailabl e Reason for Visit * Physical Therapy (Routine) - Canceled Specialty Diagnoses / Procedures Referred By Violeta t Referred To Contact Diagnoses Fracture Pelvis Multiple With Stable Disruption Of Pelvic Ring Open Initial (HCC) Procedures PT Ongoing treatment Yobany Bateman APRN, C.N.P., D.N.P. [address] [place] [phone] Phone: tel: fax: [facility] Region Referral ID Status Reason Start Date Expiration Date V isits Requested Visits Authorized [id number] Canceled 04/04/2024 04/04/2025 99 99 Encounter Details Date Type Department Care Team (Latest Contact Info) Description 04/07/2024 2:30 PM CDT Clinical Support Department of Rehabilitation Services in [address] [phone] Yobany Bateman APRN, C.N.P., D.N.P. [address] [place] [phone] Rashaun Garcia P.T. [address] [place] [phone] Fracture Pelvis Multiple With Stable Disruption Of [...] week 09/27/2022 How often do you attend [facility] or yarsanism services? More than 4 times per year 09/27/2022 Do you belong to any clubs o r organizations such as gnosticist groups, unions, fraternal or athletic groups, or [...] and heating? Not hard at all 09/27/2022 [facility] [place] of Occupat ional Health - Occupational Stress [...] on file Legal Sex Female 5:07 AM SNOW FENCE ERECTOR Gender Identity Not on file Sexual Orientation [...] Total Score: 0 11/02/19 14 2:53 PM SNOW FENCE ERECTOR documented as of this encounter Care Teams Quality Engineering Manager Relationship Specialty Start Date End Date Elsewhere, Pcp PCP - General Family Medicine 01/31/21 documented as of this encounter
--- OUTSIDE RECORDS SUMMARY | 2024-07-14 12:37 | XMS_ITS | Continuity of Care Document ---
Author Name [facility] Organization [facility] Care Team Providers Care Java Enterprise Architect Name Role Phone [facility] Unavailable Unavailable Medications Combined list of outpatient [...] EXELAN PHARMACE, 4 ea. BLIST PACK Active [id number] 3 2022 12 Pharmac y Data Transac tion Service Facilit y ALENDRONATE SODIUM (alendronat e sodium), 70 MG, TABLET, ORAL, [facility] 4 ea. BLIST PACK Active [id number] 2023 12 Pharmac y Data Transac tion Service Facilit y ALENDRONATE SODIUM (alendronat e sodium), 70 MG, TABLET, ORAL, [facility] 4 ea. BLIST PACK Active [id number] 2023 12 Pharmac y Data Transac tion Service Facilit y FLUOROURACI L (FLUOROURAC IL), 5 %, CREAM(GM), TOPICAL, [facility], 40 g TUBE Cancele d [id number] : 2023 0 Pharmac y Data Transac tion Service Facilit y FLUOROURACI L (FLUOROURAC IL), 5 %, CREAM(GM), TOPICAL, [facility], 40 g TUBE Active [id number] 4 2023 40 Pharmac y Data Transac tion Service Facilit y FLUTICASONE PROPIONATE (FLUTICASON E PROPIONATE) , 50 MCG, SPRAY SUSP, NASAL, [facility] 16 g AER W/ADAP Cancele d [id number] : 2023 0 Pharmac y Data Transac tion Service Facilit y FLUTICASONE PROPIONATE (FLUTICASON E PROPIONATE) , 50 MCG, SPRAY SUSP, NASAL, [facility] 16 g AER W/ADAP Active [id number] 2023 16 Pharmac y Data Transac tion Service Facilit y FLUTICASONE PROPIONATE (FLUTICASON E PROPIONATE) , 50 MCG, SPRAY SUSP, NASAL, [facility] 16 g AER W/ADAP Active [id number] 4 2023 16 Pharmac y Data Transac tion Service Facilit y GABAPENTIN (gabapentin ), 100 MG, CAPSULE, ORAL, [facility] 1000 ea. BOTTLE Active [id number] 4 2023 90 Pharmac y Data Transac tion Service Facilit y HYDROCHLORO THIAZIDE (hydrochlor othiazide), 12.5 MG, TABLET, ORAL, [facility] 1000 ea. BOTTLE Active [id number] 4 2023 90 Pharmac y Data Transac tion Service Facilit y LOSARTAN POTASSIUM (losartan potassium), 25 MG, TABLET, ORAL, [facility], 1000 ea. BOTTLE Cancele d [id number] : 2023 0 Pharmac y Data Transac tion Service Facilit y LOSARTAN POTASSIUM (losartan potassium), 25 MG, TABLET, ORAL, [facility], 1000 ea. BOTTLE Active [id number] 4 2023 90 Pharmac y Data Transac tion Service Facilit y OMEPRAZOLE (omeprazole ), 40 MG, CAPSULE DR, ORAL, [facility], 500 ea. BOTTLE Active [id number] 4 2023 90 Pharmac y Data Transac tion Service Facilit y OMEPRAZOLE (omeprazole ), 40 MG, CAPSULE DR, ORAL, [facility], 500 ea. BOTTLE Active [id number] 2023 90 Pharmac y Data Transac tion Service Facilit y OMEPRAZOLE (omeprazole ), 40 MG, CAPSULE DR, ORAL, [facility], 500 ea. BOTTLE Active [id number] 2022 90 Pharmac y Data Transac tion Service Facilit y OMEPRAZOLE (omeprazole ), 40 MG, CAPSULE DR, ORAL, [facility], 500 ea. BOTTLE Active [id number] 4 2023 90 Pharmac y Data Transac tion Service Facilit y PAXLOVID (EUA) (nirmatrelv ir/ritonavi r), 150-100 MG, TAB DS PK, ORAL, [facility] 20 ea. BLIST PACK Cancele d [id number] : 2023 0 Pharmac y Data Transac tion Service Facilit y PAXLOVID (EUA) (nirmatrelv ir/ritonavi r), 150-100 MG, TAB DS PK, ORAL, [facility] 20 ea. BLIST PACK Active [id number] 4 2023 20 Pharmac y Data Transac tion Service Facilit y SHINGRIX (varicella- zoster virus glycoprotei n E,rec/AS01B adjuvant/PF ), 50 MCG/0.5, KIT, INTRAMUSC, GLAXOSMITHK LINE, 1 ea. KIT Active [id number] 4 2023 1 Pharmac y Data Transac tion Service Facilit y Immunizations Combined list of available immunizations from the Department of Defense and Veterans Affairs facilities. Immunization Series Date Given Administered By Site Reaction Lot Number CVX Code Drug Webmethods Architect Status Comments Source zoster recombinant 2023 () Not Given zoster recombina nt DoD Social History Combined list of available smoking, tobacco, and other social history from Department of Defense and Veterans Affairs facilities. Social History Type Response Date Comment Sour e This section is an empty social history section. [facility]
--- OUTSIDE RECORDS SUMMARY | 2024-07-14 12:37 | XMS_ITS | Clinical Summary ---
Author Organization [facility] Address [place], [place] [address] Care Team Providers Care Peer Tutor Name Role Phone Clinic, [facility] Primary Care Pr ovider Allergies Active Allergy [...] 65+ 05/15/2024 Medical Devices Implanted Type Area Custom Home Installer Device Identifier Shelf Expiration Date Model / Serial / Lot Valve Barevelt 350mm [id number] Pharmaciaamerican fork hospitalmics - [id number] Implanted:Qty: 1 on 12/22/2011 at [facility] Right: Eye [employer] 06/13/2013 [id number] / [id number] / Cornea Glycerol Half - [id number] Implanted:Qty: 1 on 12/22/2011 at [facility] Right: Eye [facility] 09/19/2014 [id number]# / [id number] / Advance Directives * Full Code (Latest Code Status on File) Date Activated Date Inactivated Comments 03/22/2024 8:13 PM 03/24/2024 3:39 PM Question Answer Comments Code Status Discussion: Reviewed Preferences * Full Code Date Activated Date Inactivated Comments 12/22/2011 12:34 PM 12/22/2011 6:48 PM Care Teams Peer Tutor Relationship Specialty Start Date End Date Clinic, [facility] [address] [place] [address] PCP - General 04/25/24
--- OUTSIDE RECORDS SUMMARY | 2024-07-14 12:37 | XMS_ITS | Referral Summary ---
Author Organization [facility] Address [address] [place] [address] Care Team Providers Care Gold And Silver Assayer Name Role Phone Elsewhere, Pcp Primary Care Provider Unavailabl e Source Comments Patient records contain information from all sites at [facility]. For routine questions regarding patient records, call [phone] during business hours, M-F 8:00 AM - 5:00 PM Central Time. Record requests for emergency care only can be directed to [phone] at any time.[facility] Encounters Date Type Department Care Team Description 05/11/2024 12:30 PM CDT Clinical Support Department of Rehabilitation Services in [address] [phone] Yobany Bateman APRN, C.NOlivia, Suhas.Antonia Johnson, P.T., D.P.T. Fracture Pelvis Multiple With Stable Disruption Of Pelvic Ring Open Initial (HCC) 05/02/2024 3:15 PM CDT Clinical Support Department of Rehabilitation Services in [address] [phone] Yobany Bateman APRN, C.NOlivia, Suhas.N.Antonia Peña PDannT., D.P.T. Fracture Pelvis Multiple With Stable Disruption Of Pelvic Ring Open Initial (HCC) 04/21/2024 10:30 AM CDT Clinical Support Department of Rehabilitation Services in [address] [phone] Yobany Bateman APRN, C.N.P., D.N.P. Rashaun Garcia, P.T. Fracture Pelvis Multiple With Stable Disruption Of Pelvic Ring Open Initial (HCC) 04/15/2024 Clinical Communication Department of Rehabilitation Services in [address] [phone] Rashaun Garcia, P.T. from Last 3 Months Allergies Active Allergy [...] drink = 0.6 oz pur e alcohol) [facility] Utilities Answer Date Recorded In the past 12 months has e [employer], gas, oil, or water company threatened to [...] How often do you attend chur or mu-ism services? More than 4 times per year 09/27/2022 Do you belong to any clubs o r organizations such as congregational groups, unions, fraternal or athletic groups, or [...] heating? Not hard at all 09/27/2022 [facility] of Occupat ional Health - Occupational [...] your living situation today? I have a [facility] place to live 03/03/2024 Education Answer Date Recorded What is the highest level of school you have completed or the highest degree you have received? 12th grade 09/27/2022 Comments No Sex and Gender Information Value Date Recorded Sex Assigned at Not on file Legal Sex Female 5:07 AM CLAIMS ADJUSTER Gender Identity Not on file Sexual [...] on file Medical Devices Implanted Type Area Chief Digital Officer Device Identifier Shelf Expiration Date Model / [...] Metabolic Panel (03/07/2024 9:21 PM CDT) Pathologist [facility] Potassium, S 4.7 3.6 - 5.2 mmol/L [...] M.D. LAB BLOOD ADD-ON Final Resu lt [facility] [address] [place] [address], [place] DTL [facility] [address] [place] [address] from Last 3 Months or Most Recently Relevant to Health Maintenance Insurance MEDICARE [facility] Advance Directives For more information, please contact: [phone] * Full Code (Latest Code Status on [...] Answer Comments Full Code: Discussed Care Teams Gold And Silver Assayer Relationship Specialty Start Date End Date Elsewhere, Pcp PCP - General Family Medicine 01/31/21
--- OUTSIDE RECORDS SUMMARY | 2024-07-14 12:37 | XMS_ITS | Encounter Summary ---
Author Organization [facility] Address [address] [place] [address] Care Team Providers Care Insurance Account Assistant Name Role Phone Elsewhere, Pcp Primary Care Provider Unavailabl e Reason for Visit * Physical Therapy (Routine) - Canceled Specialty Diagnoses / Procedures Referred By Violeta t Referred To Contact Diagnoses Fracture Pelvis Multiple With Stable Disruption Of Pelvic Ring Open Initial (HCC) Procedures PT Ongoing treatment Yobany Bateman APRN, C.N.P., D.N.P. [address] [place] [phone] Phone: tel: fax: [facility] Region Referral ID Status Reason Start Date Expiration Date V isits Requested Visits Authorized [id number] Canceled 04/04/2024 04/04/2025 99 99 Encounter Details Date Type Department Care Team (Latest Contact Info) Description 05/02/2024 3:15 PM CDT Clinical Support Department of Rehabilitation Services in [address] [phone] Yobany Bateman APRN, C.N.P., D.N.P. [address] [place] [phone] Antonia Raines P.T., D.P.T. [address] [place] [phone] Fracture Pelvis Multiple With Stable Disruption [...] 09/27/2022 How often do you attend [facility] or congregation services? More than 4 times per year 09/27/2022 Do you belong to any clubs o r organizations such as alevism groups, unions, fraternal or athletic groups, or [...] and heating? Not hard at all 09/27/2022 [facility] of Occupat ional [facility] - Occupational Stress Questionnaire Answer [...] on file Legal Sex Female 5:07 AM CURRICULUM DEVELOPMENT COORDINATOR Gender Identity Not on file Sexual [...] Total Score: 0 11/02/19 14 2:53 PM CURRICULUM DEVELOPMENT COORDINATOR documented as of this encounter Care Teams Insurance Account Assistant Relationship Specialty Start Date End Date Elsewhere, Pcp PCP - General Family Medicine 01/31/21 documented as of this encounter
--- OUTSIDE RECORDS SUMMARY | 2024-07-14 12:37 | XMS_ITS | Encounter Summary ---
Author Organization [facility] Address [address] [place] [address] Care Team Providers Care Assistant Media Buyer Name Role Phone Elsewhere, Pcp Primary Care Provider Unavailabl e Encounter Details Date Type Department Care Team (Latest Contact Info) Description 04/15/2024 Clinical Communication Department of Rehabilitation Services in [address] [phone] Rashaun Garcia, PDannTDann [address] [place] [phone] Social History Tobacco Use Types Packs/Day Years Used Date Smoking Tobacco: Never Smokeless Tobacco: Never Alcohol Use Standard Drinks/Week Comments Not Currently 0 (1 standard drink = 0.6 oz pur e alcohol) [facility] Utilities Answer Date Recorded In the past 12 months has [facility] [employer], gas, oil, or water [employer] threatened to shut off services in your [...] How often do you attend chur or denominational services? More than 4 times [...] and heating? Not hard at all 09/27/2022 [facility] of Occupat ional Health - [...] on file Legal Sex Female 5:07 AM PORT TRAFFIC MANAGER Gender Identity Not on file Sexual Orientation Not on file documented as of this encounter Plan of Treatment Not on file documented as of this encounter Visit Diagnoses Not on filedocumented in this encounter Additional Health Concerns Assessment Noted Time PHQ-9 Depression Total Score: 0 11/02/19 14 2:53 PM PORT TRAFFIC MANAGER documented as of this encounter Care Teams Assistant Media Buyer Relationship Specialty Start Date End Date Elsewhere, Pcp PCP - General Family Medicine 01/31/21 documented as of this encounter
--- OUTSIDE RECORDS SUMMARY | 2024-07-14 12:37 | XMS_ITS | Encounter Summary ---
Author Organization [facility] Address [address] [place] [address] Care Team Providers Care Pad Tufter Name Role Phone Elsewhere, Pcp Primary Care Provider Unavailabl e Reason for Visit * Physical Therapy (Routine) - Canceled Specialty Diagnoses / Procedures Referred By Violeta t Referred To Contact Diagnoses Fracture Pelvis Multiple With Stable Disruption Of Pelvic Ring Open Initial (HCC) Procedures PT Ongoing treatment Yobany Bateman APRN, C.N.P., D.N.P. [address] [place] [phone] Phone: tel: fax: [facility] Region Referral ID Status Reason Start Date Expiration Date V isits Requested Visits Authorized [id number] Canceled 04/04/2024 04/04/2025 99 99 Encounter Details Date Type Department Care Team (Latest Contact Info) Description 05/11/2024 12:30 PM CDT Clinical Support Department of Rehabilitation Services in [address] [phone] Yobany Bateman APRN, C.N.P., D.N.P. [address] [place] [phone] Antonia Raines P.T., D.P.T. [address] [place] [phone] Fracture Pelvis Multiple With Stable Disruption Of Pelvic Ring Open Initial (HCC) Social History Tobacco Use Types Packs/Day Years Used Date Smoking Tobacco: Never Smokeless Tobacco: Never Alcohol Use Standard Drinks/Week Comments Not Currently 0 (1 standard drink = 0.6 oz pur e alcohol) [facility] Utilities Answer Date Recorded In [...] week 09/27/2022 How often do you attend [facility] or rastafarian services? More than 4 times per year [...] 09/27/2022 [facility] of Occupat ional [facility] - Occupational Stress Questionnaire Answer Date [...] on file Legal Sex Female 5:07 AM COCONUT BOILER Gender Identity Not on file Sexual Orientation [...] Total Score: 0 11/02/19 14 2:53 PM COCONUT BOILER documented as of this encounter Care Teams Pad Tufter Relationship Specialty Start Date End Date Elsewhere, Pcp PCP - General Family Medicine 01/31/21 documented as of this encounter
--- OUTSIDE RECORDS SUMMARY | 2024-07-14 12:37 | XMS_ITS | Encounter Summary ---
Author Organization [facility] Address [address] [place] [id number] Care Team Providers Care Froth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 Name Role Phone Elsewhere, Pcp Primary Care Provider Unavailabl e Reason for Visit * Physical Therapy (Routine) - Canceled Specialty Diagnoses / Procedures Referred By Violeta t Referred To Contact Diagnoses Fracture Pelvis Multiple With Stable Disruption Of Pelvic Ring Open Initial (HCC) Procedures PT Ongoing treatment Yobany Bateman APRN, C.N.P., D.N.P. [address] [place] [phone] Phone: tel: fax: [facility] Region Referral ID Status Reason Start Date Expiration Date V isits Requested Visits Authorized [id number] Canceled 04/04/2024 04/04/2025 99 99 Encounter Details Date Type Department Care Team (Latest Contact Info) Description 04/21/2024 10:30 AM CDT Clinical Support Department of Rehabilitation Services in [address] [phone] Yobany Bateman APRN, C.N.P., D.N.P. [address] [place] [phone] Rashaun Garcia P.T. [address] [place] [phone] Fracture Pelvis Multiple With Stable Disruption Of Pelvic Ring Open Initial (HCC) Social History Tobacco Use Types Packs/Day Years Used Date Smoking Tobacco: Never Smokeless Tobacco: Never Alcohol Use Standard Drinks/Week Comments Not Currently 0 (1 standard drink = 0.6 oz pur e alcohol) [facility] Utilities Answer Date Recorded In [...] 09/27/2022 How often do you attend [facility] or adventist services? More than 4 times per year [...] and heating? Not hard at all 09/27/2022 [facility] [place] of Occupat ional Health - Occupational Stress [...] on file Legal Sex Female 5:07 AM MASS COMMUNICATIONS INSTRUCTOR Gender Identity Not on file Sexual Orientation [...] Total Score: 0 11/02/19 14 2:53 PM MASS COMMUNICATIONS INSTRUCTOR documented as of this encounter Care Teams Froth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 Relationship Specialty Start Date End Date Elsewhere, Pcp PCP - General Family Medicine 01/31/21 documented as of this encounter
--- OUTSIDE RECORDS SUMMARY | 2024-07-14 12:38 | XMS_ITS | Encounter Summary ---
Author Organization [facility] Address [address] [place] [address] Care Team Providers Care Greenhouse Or Nursery Transplanter Name Role Phone Elsewhere, Pcp Primary Care Provider Unavailabl e Reason for Visit * Reason Onset Date Comments Lovenox Injections 03/10/2024 Encounter Details Date Type Department Care Team (Latest Contact Info) Description 03/10/2024 Clinical Communication Department of Orthopedic Surgery in [place], [place] [address] [place] [phone] Nenita Elkins, MPAS, P.A.-C. [address] [place] [phone] Lovenox Injections Social History Tobacco Use Types Packs/Day Years Used Date Smoking Tobacco: Never Smokeless Tobacco: Never Alcohol Use Standard Drinks/Week Comments Not Currently 0 (1 standard drink = 0.6 oz pur e alcohol) [facility] Utilities Answer Date Recorded In the past [...] How often do you attend chur or mandaeism services? More than 4 times per year 09/27/2022 Do you belong to any clubs o r organizations such as scientology groups, unions, fraternal or athletic groups, or [...] and heating? Not hard at all 09/27/2022 [facility] of Occupat ional Health - Occupational Stress [...] your living situation today? I have a [facility] place to live 03/03/2024 Education Answer Date Recorded What is the highest level of school you have completed or the highest degree you have received? 12th grade 09/27/2022 Comments No Sex and Gender Information Value Date Recorded Sex Assigned at Not on file Legal Sex Female 5:07 AM NEGATIVE RETOUCHER Gender Identity Not on file Sexual Orientation Not on file documented as of this encounter Plan of Treatment Not on file documented as of this encounter Visit Diagnoses Not on filedocumented in this encounter Additional Health Concerns Assessment Noted Time PHQ-9 Depression Total Score: 0 11/02/19 14 2:53 PM NEGATIVE RETOUCHER documented as of this encounter Care Teams Greenhouse Or Nursery Transplanter Relationship Specialty Start Date End Date Elsewhere, Pcp PCP - General Family Medicine 01/31/21 documented as of this encounter
--- OUTSIDE RECORDS SUMMARY | 2024-07-14 12:38 | XMS_ITS | Encounter Summary ---
Author Organization [facility] Address [address] [place] [address] Care Team Providers Care Audio Visual Secretary Name Role Phone Elsewhere, Pcp Primary Care Provider Unavailabl e Reason for Visit * Reason Comments Consult * Outpatient (Routine) - Closed Specialty Diagnoses / Procedures Referred By Violeta keating Referred To Contact Endocrinology Diagnoses Fracture Pelvis Other Parts Closed Initial (HCC) Nenita Elkins MPAS, P.A.-C. [address] [place] [phone] Phone: tel: fax: [facility] Referral ID Status Reason Start Date Expiration Date Visits Re quested Visits Authorized [id number] Closed 03/03/2024 09/02/2025 1 1 Encounter Details Date Type Department Care Team (Latest Contact Info) Description 04/05/2024 11:00 AM CDT Comprehensive Visit Division of Endocrinology in [place], [place] [address] [place] [phone] Nenita Elkins MPAS, P.A.-C. [address] [place] [phone] Cristi Tierney M.D. [address] [place] [phone] Osteoporosis Post Menopausal With Pathological Fracture Subsequent [...] and heating? Not hard at all 09/27/2022 [facility] - Occupational Stress Questionnaire Answer [...] on file Legal Sex Female 5:07 AM ANALYSIS REPORTING DEVELOPER Gender Identity Not on file Sexual [...] Total Score: 0 11/02/19 14 2:53 PM ANALYSIS REPORTING DEVELOPER documented as of this encounter Care Teams Audio Visual Secretary Relationship Specialty Start Date End Date Elsewhere, Pcp PCP - General Family Medicine 01/31/21 documented as of this encounter
== END 2024-07-14 10:01 | disposition home or self-care (01) ==
LOC: NFLDREF 12:35
PROVIDERS: PCP Nurse Practitioner Family; Referring Provider Nurse Practitioner Family; Visit Provider Nurse Practitioner Family
DX: N39.0 Urinary tract infection, site not specified (principal)
CPT/HCPCS: 81001; 87086

== ENCOUNTER 2024-09-20 14:15 | Outpatient (RCR) | payer MEDICARE, OTHER, SELFPAY ==
--- NOTE | 2024-07-22 11:39 | PT.OPEX ---
PT [place] Outpatient Eval PT [facility] Outpatient Eval Start: 07/22/24 07:58 Freq: Status: Active Protocol: Document 07/22/24 07:59 CRP (Rec: 07/22/24 11:39 CRP [id number]) E-signed By Juan Zavala PT Physical Therapy Outpatient Evaluation Insurance Information Recert Due Date 10/20/24 Insurance Name Medicare B Medical Diagnosis Lumbar spondylosis without myelopathy Spondylolisthesis L knee OA Referring MD Dr Funes Subjective Subjective End of February she fell and broke her pelvis. Had PT for rehab . Pt feels like she over did it in rehab and started having L knee pain. Pain is sharp and achy. Pain increases with lying down at night - especially on her R side. Sleeps in adjustable bed and is most comfortable on her back with legs elevated. Pain also increases with sitting, stooping down and kneeling. Denies catching, locking or buckling. Will feel weakness at times. Has had times of sxs from post hip into upper thigh as well. This seems better to some degree. Pt also notes that she has had pain along the L SI region that she has wondered at times if it is related to the L knee pain. Did have moments of mild tingling like sxs into the L thigh. The pelvic fxs have healed and she no longer has pain on the R side. PMHx: Lumbar decompression 2010 Pain Comments Knee pain: 2-5 Back pain: 2/10 Current Work Status Retired Objective Other/Pertinent Objective Trunk ROM: Flex 50% dec with L knee pain, Ext WNL, bilat SB min dec, bilat rot min/mod dec Hip ROM WNL bilat Knee ROM: Slight end range restriction with flexion, Ext is painful at full knee extension Palpation: Palpable pain R med knee joint line. 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 Pts presentation is characterized by painful loss of lumbar spine ROM, adverse neurodynamics, painful loss of knee ROM, poor lumbopelvic control and closed chain weakness of L LE. Skilled PT is necessary to incorporate ther ex, nm arpan, ther act, manual therapy and pt education to decrease pain and improve functional mobility. 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 Pt will be independent with HEP in 8 weeks. 2. Pt will sit to read and/or socialize for 2+ hours and no pain in 10 weeks. 3. 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 Coordination/Communication With Referral Source Treatment Plan/Direct Interventions Gait Training,Joint Mobilization,Manual Therapy, Neuromuscular Re-ed,Self-Care/ Home Management,Therapeutic Activities,Therapeutic Exercises Frequency/Duration 1-2x/wk for 12 weeks Patient Will Be Discharged From Therapy Completion of LTG(s),Skills Plateau,Independent w/HEP, Independently Progressing Evaluation Billing Untimed Code Treatment Minutes 60 Complexity High Certification Information Initial Certification Date 07/22/24 Ending Certification Date 10/20/24 Provider Signature Required Yes Provider Signature Shows Agreement With POC & Medical Necessity Physician NPI Number Write NPI# Here Physician Comment/Change : Physician Signature & Date Requested Please Sign/Date Here
--- OUTSIDE RECORDS SUMMARY | 2024-09-02 10:41 | XMS_ITS | Continuity of Care Document ---
Author Name [facility] Organization [facility] Care Team Providers Care Supervisor Packing Name Role Phone [facility] Unavailable Unavailable Medications Combined list of [...] EXELAN PHARMACE, 4 ea. BLIST PACK Active [id number] 3 2022 12 Pharmac y Data Transac tion Service Facilit y ALENDRONATE SODIUM (alendronat e sodium), 70 MG, TABLET, ORAL, [facility] 4 ea. BLIST PACK Active [id number] 4 2023 12 Pharmac y Data Transac tion Service Facilit y ALENDRONATE SODIUM (alendronat e sodium), 70 MG, TABLET, ORAL, [facility] 4 ea. BLIST PACK Active [id number] 4 2023 12 Pharmac y Data Transac tion Service Facilit y FLUOROURACI L (FLUOROURAC [place]), 5 %, CREAM(GM), TOPICAL, [facility], 40 g TUBE Cancele d [id number] : 2023 0 Pharmac y Data Transac tion Service Facilit y FLUOROURACI L (FLUOROURAC IL), 5 %, CREAM(GM), TOPICAL, [facility], 40 g TUBE Active [id number] 4 2023 40 Pharmac y Data Transac tion Service Facilit y FLUTICASONE PROPIONATE (FLUTICASON E PROPIONATE) , 50 MCG, SPRAY SUSP, NASAL, [facility] 16 g AER W/ADAP Cancele d [id number] : 2023 0 Pharmac y Data Transac tion Service Facilit y FLUTICASONE PROPIONATE (FLUTICASON E PROPIONATE) , 50 MCG, SPRAY SUSP, NASAL, [employer] 16 g AER W/ADAP Active [id number] 4 2023 16 Pharmac y Data Transac tion Service Facilit y FLUTICASONE PROPIONATE (FLUTICASON E PROPIONATE) , 50 MCG, SPRAY SUSP, NASAL, [employer] 16 g AER W/ADAP Active [id number] 4 2023 16 Pharmac y Data Transac tion Service Facilit y GABAPENTIN (gabapentin ), 100 MG, CAPSULE, ORAL, [employer] 1000 ea. BOTTLE Active [id number] 4 2023 90 Pharmac y Data Transac tion Service Facilit y HYDROCHLORO THIAZIDE (hydrochlor othiazide), 12.5 MG, TABLET, ORAL, [employer] 1000 ea. BOTTLE Active [id number] 4 2023 90 Pharmac y Data Transac tion Service Facilit y LOSARTAN POTASSIUM (losartan potassium), 25 MG, TABLET, ORAL, [facility], 1000 ea. BOTTLE Cancele d [id number] : 2023 0 Pharmac y Data Transac tion Service Facilit y LOSARTAN POTASSIUM (losartan potassium), 25 MG, TABLET, ORAL, [facility], 1000 ea. BOTTLE Active [id number] 4 2023 90 Pharmac y Data Transac tion Service Facilit y OMEPRAZOLE (omeprazole ), 40 MG, CAPSULE DR, ORAL, [facility], 500 ea. BOTTLE Active [id number] 4 2023 90 Pharmac y Data Transac tion Service Facilit y OMEPRAZOLE (omeprazole ), 40 MG, CAPSULE DR, ORAL, [facility], 500 ea. BOTTLE Active [id number] 4 2023 90 Pharmac y Data Transac tion Service Facilit y OMEPRAZOLE (omeprazole ), 40 MG, CAPSULE DR, ORAL, [facility], 500 ea. BOTTLE Active [id number] 3 2022 90 Pharmac y Data Transac tion Service Facilit y OMEPRAZOLE (omeprazole ), 40 MG, CAPSULE DR, ORAL, [facility], 500 ea. BOTTLE Active [id number] 4 2023 90 Pharmac y Data Transac tion Service Facilit y PAXLOVID (EUA) (nirmatrelv ir/ritonavi r), 150-100 MG, TAB DS PK, ORAL, [facility] 20 ea. BLIST PACK Cancele d [id number] : 2023 0 Pharmac y Data Transac tion Service Facilit y PAXLOVID (EUA) (nirmatrelv ir/ritonavi r), 150-100 MG, TAB DS PK, ORAL, [facility] 20 ea. BLIST PACK Active [id number] 4 2023 20 Pharmac y Data Transac tion Service Facilit y SHINGRIX (varicella- zoster virus glycoprotei n E,rec/AS01B adjuvant/PF ), 50 MCG/0.5, KIT, INTRAMUSC, GLAXOSMITHK LINE, 1 ea. 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 Social History Type Response Date Comment Sour e This section is an empty social history section. [facility]
== END 2025-01-18 23:59 | disposition home or self-care (01) ==
PROVIDERS: PCP Nurse Practitioner Family; Visit Provider Orthopaedic Surgery Sports Medicine
DX: M47.816 Spondylosis without myelopathy or radiculopathy, lumbar region (principal); M43.16 Spondylolisthesis, lumbar region; M17.12 Unilateral primary osteoarthritis, left knee; Z51.89 Encounter for other specified aftercare
CPT/HCPCS: 97110; 97140; 97163

== ENCOUNTER 2024-10-04 11:27 | Outpatient (CLI) | payer MEDICARE, OTHER, SELFPAY | END 2024-10-04 11:28 | disposition home or self-care (01) | LOC: WOUND 11:27 | PROVIDERS: PCP Nurse Practitioner Family; Visit Provider Nurse Practitioner Family | DX: S61.401A Unspecified open wound of right hand, initial encounter (principal); M79.641 Pain in right hand | CPT/HCPCS: G0463 ==

== ENCOUNTER 2024-10-20 14:13 | Outpatient (CLI) | payer MEDICARE, OTHER, SELFPAY | END 2024-10-20 14:14 | disposition home or self-care (01) | PROVIDERS: PCP Nurse Practitioner Family; Visit Provider Nurse Practitioner Family | DX: R42 Dizziness and giddiness (principal); R41.89 Other symptoms and signs involving cognitive functions and awareness; K90.0 Celiac disease; R74.8 Abnormal levels of other serum enzymes; I10 Essential (primary) hypertension; Z13.0 Encounter for screening for diseases of the blood and blood-forming organs and certain disorders involving the immune mechanism | CPT/HCPCS: 80053; 81001; 84443; 84484; 85025; 86231; 86258; 86364; 87086 ==

== ENCOUNTER 2025-05-23 09:43 | Outpatient (CLI) | payer MEDICARE, OTHER, SELFPAY | END 2025-05-23 09:44 | disposition home or self-care (01) | LOC: KYNREF 09:47 | PROVIDERS: PCP Nurse Practitioner Family; Visit Provider Nurse Practitioner Family | DX: I10 Essential (primary) hypertension (principal) | CPT/HCPCS: 80053 ==

== ENCOUNTER 2025-06-22 10:01 | Outpatient (CLI) | payer MEDICARE, OTHER, SELFPAY | END 2025-06-22 10:02 | disposition home or self-care (01) | LOC: NFLDREF 23:10 | PROVIDERS: PCP Nurse Practitioner Family; Referring Provider Nurse Practitioner Family; Visit Provider Nurse Practitioner Family | DX: N39.0 Urinary tract infection, site not specified (principal); J30.2 Other seasonal allergic rhinitis | CPT/HCPCS: 81001; 87086; 87186 ==